=== PATIENT | female | born 1975 | race African-American/Black ===

== ENCOUNTER 2019-03-24 17:40 | Emergency (ER) | payer MEDICAID ==
--- OUTSIDE RECORDS SUMMARY | 2019-03-24 17:45 | XMS REPORT ---
:1975 Author Organization [facility] Address [address] [place] [address] Care Team Providers Name Role Phone Unavailable Unavailable Unavailable Problems This patient has no known problems. Allergies, Adverse Reactions, Alerts This patient has no known allergies or adverse reactions. Medications This patient has no known medications.
--- OUTSIDE RECORDS SUMMARY | 2019-03-24 17:45 | XMS REPORT ---
:1975 Author Organization [facility] Address [address] [place] [id number] Phone Allergies, Adverse Reactions, Alerts Allergy Name Reaction Description Start Date Severity Status Provider No Known Allergies Claudia Jordan Conditions or Problems Problem Problem Onset Status Entry Provider Comment Standard Annotate Name Code Date Date Description No Known Julian Medication List Medication Instructions Start Stop Generic NDC Status Provider Patient Date Date Name Instruction AMOXICILLIN 1 tablet AMOXICILLIN 79941152584 Active Patti Active 500 MG ORAL by mouth Gela CAPSULE every 8 DDS hours until gone Vital Signs Date Name Value Unit Range Description blood pressure, diastolic 78 mm[Hg] BP villatoro blood pressure, systolic 127 mm[Hg] BP sys pulse rate E&M 67 /min Heart rate
--- NOTE | 2019-03-24 20:43 | RAD REPORT ---
EXAM DESCRIPTION: RAD - Abdomen W Erect - 03/24/2019 8:13 pm CLINICAL HISTORY: Abdominal pain COMPARISON: January 2016 TECHNIQUE: Supine and upright views of the abdomen were obtained. FINDINGS: Air and stool are present within a nondilated colon. No stomach dilatation. A few prominen t small bowel loops are present. Enteritis or ileus would be favored over bowel obstruction. No free air or pneumatosis. No suspicious calcifications. Phleboliths along the pelvic floor. IMPRESSION: Mildly prominent small bowel pattern favoring ileus or enteritis rather than bowel obstr uction. No free air or emergent finding.
[2019-03-24 20:53] LABS: Barbiturates NEGATIVE (NEGATIVE); Benzodiazepines NEGATIVE (NEGATIVE); Cocaine POSITIVE (NEGATIVE); METHAMPHETAM NEGATIVE (NEGATIVE); Methadone NEGATIVE (NEGATIVE); Opiates NEGATIVE (NEGATIVE); Phencyclidine NEGATIVE (NEGATIVE); THC Cannibis POSITIVE (NEGATIVE)
[2019-03-24 21:15] LABS: Absolute Lymphocytes (CBC) 3.1 K/uL (0.7-4.9); Absolute Monocytes 0.4 K/uL (0.1-1.3); Eosinophils % 1.8 % (0-4.4); Hematocrit 37.4 % (36.0-45.0); MPV 8.6 fL (7.6-11.3); Monocytes % 6.9 % (3.3-12.3); RBC Red Blood Cell Count 3.87 M/uL (3.86-4.86)
[2019-03-24] MEDS ORDERED: MEPERIDINE HCL 25 MG/0.5 ML ONE (21:22)
[2019-03-24] MEDS ORDERED: PROMETHAZINE 25 MG/ML VIAL ONE (21:22)
[2019-03-24] MEDS ORDERED: NA CHLORIDE 0.9% 1,000 ML ONE ×2 (21:23→21:44)
[2019-03-24] MEDS ORDERED: FAMOTIDINE 20 MG/2 ML VIAL IV ONE (21:23)
[2019-03-24] MEDS ORDERED: HYDROMORPHONE HCL 2 MG/ML inj ONE (21:44)
[2019-03-24 21:45] LABS: Blood Morphology Comment NOT SEEN (NOT SEEN); Platelet Estimate ADEQ
[2019-03-24 21:56] LABS: Albumin 3.3 g/dL (3.4-5.0); Bilirubin Direct 0.1 mg/dL (0-0.2); Bilirubin Total 0.4 mg/dL (0.2-1.0); Potassium 3.5 mmol/L (3.5-5.1)
[2019-03-24 21:57] LABS: Urine Blood NEGATIVE (NEG); Urine Glucose NEGATIVE (NEG); Urine Protein NEGATIVE (NEG)
[2019-03-24] MEDS ORDERED: CIPROFLOXACIN 400mg IV 400 MG/200 ML BAG IV ONE (22:26)
[2019-03-24] MEDS ORDERED: METRONIDAZOLE 500mg IVPB 500 MG/100 ML BAG IV ONE (22:26)
--- NOTE | 2019-03-25 01:26 | ER ---
Nurse's Notes [facility] Name: Jessica Farah Age: 43 yrs Sex: Female : 1975 Arrival Date: 03/24/2019 Time: 17:43 Bed 15 Private MD: Diagnosis: Abdominal tenderness;Crohn's disease [regional enteritis]-history;Vomiting;Diarrhea, unspecified;Abuse of non-psychoactive substances;Cocaine abuse Presentation: 03/24 17:50 Presenting complaint: Patient states: i dont know if i am having a flare up of my tw2 Crohns, i took my phenergan and it started happening Wednesday about 10pm and now the diarrhea has started, and nauseous and vomiting. Transition of care: patient was not received from another setting of care. Onset of symptoms was March 24, 2019. Risk Assessment: Do you want to hurt yourself or someone else? Patient reports no desire to harm self or others. Initial Sepsis Screen: Does the patient meet any 2 criteria? No. Patient's initial sepsis screen is negative. Does the patient have a suspected source of infection? No. Patient's initial sepsis screen is negative. Care prior to arrival: None. 17:50 Method Of Arrival: Ambulatory tw2 17:50 Acuity: EVELIA 2 tw2 Triage Assessment: 17:52 General: Appears uncomfortable, Behavior is cooperative, appropriate for age. Pain: tw2 Complains of pain in right upper quadrant and right lower quadrant. GI: Reports lower abdominal pain, upper abdominal pain, diarrhea, nausea, vomiting. 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 tw2 Historical: - Allergies: 17:54 Bentyl; tw2 17:54 Reglan; tw2 17:54 Sulfa (Sulfonamide Antibiotics); tw2 17:54 Talwin; tw2 17:54 Toradol; tw2 17:54 Zofran; tw2 17:54 Fentanyl; tw2 17:54 Morphine; tw2 17:54 Ketorolac; tw2 17:54 Butalbital Compound; tw2 - Home Meds: 17:54 ProAir HFA 90 mcg/actuation inhalation HFAA [Active]; Adderall XR 10 mg Oral cp24 1 cap tw2 once daily [Active]; Xanax 0.5 mg Oral tab 1 tab 3 times per day [Active]; Protonix 40 mg Oral TbEC 1 tab once daily [Active]; Phenergan 25 mg Oral twice a day [Active]; - PMHx: 17:54 gastritis; ibs; tw2 - Immunization history:: Adult Immunizations Adult Immunizations up to date. - Social history:: Smoking status: Smoking status: Patient/guardian denies using tobacco. - Ebola Screening: : Patient denies travel to an Ebola-affected area in the 21 days before illness onset. Screenin:15 Abuse screen: Denies threats or abuse. Nutritional screening: No deficits noted. jb4 Tuberculosis screening: No symptoms or risk factors identified. Fall Risk None identified. Assessment: 19:15 General: Appears in no apparent distress. uncomfortable, Behavior is calm, cooperative, jb4 appropriate for age. Pain: Complains of pain in abdomen Pain does not radiate. Pain currently is 8 out of 10 on a pain scale. Quality of pain is described as pressure. Neuro: Level of Consciousness is awake, alert, obeys commands, Oriented to person, place, time, situation. Cardiovascular: Patient's skin is warm and dry. Respiratory: Airway is patent Respiratory effort is even, unlabored, Respiratory pattern is regular, symmetrical. GI: Abdomen is round non-distended, Bowel sounds present X 4 quads. Abd is soft X 4 quads Abdomen is tender to palpation X 4 quads. : No signs and/or symptoms were reported regarding the genitourinary system. EENT: No signs and/or symptoms were reported regarding the EENT system. Derm: Skin is intact, Skin is dry, Skin is normal, Skin temperature is warm. Musculoskeletal: Circulation, motion, and sensation intact. 20:30 Reassessment: Patient appears in no apparent distress at this time. Patient and/or jb4 family updated on plan of care and expected duration. Pain level reassessed. Patient is alert, oriented x 3, equal unlabored respirations, skin warm/dry/pink. 21:30 Reassessment: Patient appears in no apparent distress at this time. Patient and/or jb4 family updated on plan of care and expected duration. Pain level reassessed. Patient is alert, oriented x 3, equal unlabored respirations, skin warm/dry/pink. 22:30 Reassessment: Patient appears in no apparent distress at this time. Patient and/or jb4 family updated on plan of care and expected duration. Pain level reassessed. Patient is alert, oriented x 3, equal unlabored respirations, skin warm/dry/pink. 23:30 Reassessment: Patient appears in no apparent distress at this time. Patient and/or jb4 family updated on plan of care and expected duration. Pain level reassessed. Patient is alert, oriented x 3, equal unlabored respirations, skin warm/dry/pink. Patient states feeling better. 03/25 00:30 Reassessment: Patient appears in no apparent distress at this time. Patient and/or jb4 family updated on plan of care and expected duration. Pain level reassessed. Patient is alert, oriented x 3, equal unlabored respirations, skin warm/dry/pink. Pt reports increased pain, Provider notified. 01:32 Reassessment: Upon entering room pt resting, eyes closed. Resp even and unlabored. ed1 Obtained pt's vital signs and told pt to call for her ride because she was being discharged. Pt then began to moan and say that her stomach hurts and she is nauseated. Dr. Sharp notified. No new orders received. Vital Signs: 03/24 17:51 BP 106 / 64; Pulse 83; Resp 17; Temp 98.3(TE); Pulse Ox 99% on R/A; Weight 83.91 kg tw2 (R); Height 5 ft. 7 in. (170.18 cm) (R); Pain 10; 19:15 BP 109 / 83; Pulse 76; Resp 16; Pulse Ox 100% on R/A; jb4 20:30 BP 115 / 76; Pulse 78; Resp 16; Pulse Ox 100% on R/A; jb4 21:30 BP 140 / 82; Pulse 82; Resp 16; Pulse Ox 100% on R/A; jb4 22:30 BP 122 / 75; Pulse 72; Resp 18; Pulse Ox 100% on R/A; jb4 23:30 BP 128 / 77; Pulse 73; Resp 16; Pulse Ox 100% on R/A; jb4 03/25 00:30 BP 116 / 74; Pulse 67; Resp 16; Pulse Ox 100% on R/A; jb4 01:07 BP 122 / 78; Pulse 72; Resp 16 S; Temp 100; Pulse Ox 100% ; ag4 01:32 BP 123 / 82; Pulse 71; Resp 17; Temp 97.7; Pulse Ox 100% on R/A; Pain 8/10; ed1 03/24 17:51 Body Mass Index 28.97 (83.91 kg, 170.18 cm) tw2 ED Course: 03/24 17:43 Patient arrived in ED. rg4 17:51 Triage completed. tw2 17:52 Arm band placed on. tw2 19:15 Patient has correct armband on for positive identification. Bed in low position. Call jb4 light in reach. Side rails up X 1. Pulse ox on. NIBP on. 19:28 Alexis Saucedo PA is PHCP. cp 19:39 Kenton Garcia, RN is Primary Nurse. jb4 19:41 Alexis Sharp MD is Attending Physician. cp 20:13 XRAY Abdomen With Erect In Process Unspecified. EDMS 21:00 Initial lab(s) drawn, by va, sent to lab. Inserted 18 gauge 10 mg midline to right fc upper brachial vein on first attempt. Line with good blood return and flushes well. 22:06 Oral contrast given. 2 03/25 00:43 CT Abd/Pelvis - W/Contrast: oral and iv In Process Unspecified. EDMS 01:24 Primary Nurse role handed off by Kenton Garcia, ZARA ed1 01:24 Viviana Dickey, ZARA is Primary Nurse. ed1 01:26 Vitaly Mcguire MD is Referral Physician. michael 01:43 No provider procedures requiring assistance completed. IV discontinued, intact, ed1 bleeding controlled, No redness/swelling at site. Pressure dressing applied. Administered Medications: 03/24 21:11 Not Given (Duplicate Order): Phenergan 25 mg IVP once michael 21:11 Not Given (Duplicate Order): Demerol - Meperidine 12.5 mg IVP once michael 21:30 Drug: NS 0.9% 1000 ml Route: IV; Rate: 1 bolus; Site: right upper arm; jb4 22:30 Follow up: Response: No adverse reaction; IV Status: Completed infusion; IV Intake: jb4 1000ml 21:35 Drug: Pepcid 20 mg Route: IVP; Site: right upper arm; jb4 22:05 Follow up: Response: No adverse reaction jb4 21:38 Drug: Phenergan 12.5 mg Route: IVP; Site: right upper arm; jb4 22:08 Follow up: Response: No adverse reaction; Nausea is decreased jb4 21:44 Drug: Dilaudid 1 mg Route: IVP; Site: right upper arm; jb4 22:15 Follow up: Response: No adverse reaction; Pain is decreased jb4 22:20 Drug: Phenergan 12.5 mg Route: IVP; Site: right upper arm; jb4 22:50 Follow up: Response: No adverse reaction; Nausea is decreased jb4 22:25 Drug: Dilaudid 1 mg Route: IVP; Site: right upper arm; jb4 22:55 Follow up: Response: No adverse reaction; Pain is decreased jb4 22:30 Drug: NS 0.9% 1000 ml Route: IV; Rate: 1 bolus; Site: right upper arm; jb4 22:32 Drug: Flagyl 500 mg Volume: 100 ml; Route: IVPB; Rate: 200 ml/hr; Infused Over: 30 jb4 mins; Site: right upper arm; 23:02 Follow up: Response: No adverse reaction; IV Status: Completed infusion; IV Intake: jb4 100ml 23:12 Drug: Cipro 400 mg Volume: 200 ml; Route: IVPB; Infused Over: 60 mins; Site: right jb4 upper arm; Intake: 22:30 IV: 1000ml; Total: 1000ml. jb4 23:02 IV: 100ml; Total: 1100ml. jb4 Outcome: 03/25 01:26 Discharge ordered by MD. rodriguez 01:43 Discharged to home ambulatory, with friend. ed1 01:43 Condition: good 01:43 Discharge instructions given to patient, Instructed on discharge instructions, follow up and referral plans. medication usage, Demonstrated understanding of instructions, follow-up care, medications, Prescriptions given X 4. 01:44 Patient left the ED. ed1 Signatures: Dispatcher [employer] EDMS Alexis Sharp MD MD cha Chretien, Felicia RN RN Viviana Petit RN RN ed1 Alexis Saucedo PA PA cp Wise, Tara, RN RN tw2 Meredith Gilbert rg4 Kenton Garcia RN RN jb4 Xenia Lobato 2 Don Ca ag4 Corrections: (The following items were deleted from the chart) 01:43 01:32 BP 123 / 82; Pulse 7bpm; Resp 17bpm; Pulse Ox 100% RA; Temp 97.7F; Pain 8/10; ed1 ed1
--- NOTE | 2019-03-25 01:27 | EDPHYS ---
Physician Documentation [facility] Name: Jessica Farah Age: 43 yrs Sex: Female : 1975 Arrival Date: 03/24/2019 Time: 17:43 Bed 15 Private MD: ED Physician Alexis Sharp HPI: 03/24 19:55 This 43 yrs old Black Female presents to ER via Ambulatory with complaints of Abdominal cp Pain, Nausea/Vomiting/Diarrhea. 19:55 The patient presents with abdominal pain in the upper abdomen. Onset: The cp symptoms/episode began/occurred 2 day(s) ago. The symptoms do not radiate. Associated signs and symptoms: Pertinent positives: diarrhea, nausea, vomiting, Pertinent negatives: blood in stools, constipation, dysuria, fever, vomiting blood. The symptoms are described as constant. Modifying factors: the symptoms are aggravated by pressure. 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 tw2 Historical: - Allergies: 17:54 Bentyl; tw2 17:54 Reglan; tw2 17:54 Sulfa (Sulfonamide Antibiotics); tw2 17:54 Talwin; tw2 17:54 Toradol; tw2 17:54 Zofran; tw2 17:54 Fentanyl; tw2 17:54 Morphine; tw2 17:54 Ketorolac; tw2 17:54 Butalbital Compound; tw2 - Home Meds: 17:54 ProAir HFA 90 mcg/actuation inhalation HFAA [Active]; Adderall XR 10 mg Oral cp24 1 cap tw2 once daily [Active]; Xanax 0.5 mg Oral tab 1 tab 3 times per day [Active]; Protonix 40 mg Oral TbEC 1 tab once daily [Active]; Phenergan 25 mg Oral twice a day [Active]; - PMHx: 17:54 gastritis; ibs; tw2 - Immunization history:: Adult Immunizations Adult Immunizations up to date. - Social history:: Smoking status: Smoking status: Patient/guardian denies using tobacco. - Ebola Screening: : Patient denies travel to an Ebola-affected area in the 21 days before illness onset. ROS: 20:00 Constitutional: Negative for body aches, chills, fever, poor PO intake. cp 20:00 Eyes: Negative for injury, pain, redness, and discharge. cp 20:00 Cardiovascular: Negative for chest pain, edema, palpitations. 20:00 Respiratory: Negative for cough, shortness of breath, wheezing. 20:00 Abdomen/GI: Positive for abdominal pain, nausea, vomiting, and diarrhea, Negative for constipation, anorexia, hematemesis, black/tarry stool, rectal bleeding. 20:00 : Negative for urinary symptoms, pelvic pain, vaginal bleeding, vaginal discharge. 20:00 Skin: Negative for cellulitis, rash. 20:00 Neuro: Negative for altered mental status, headache, weakness. 20:00 All other systems are negative. Exam: 20:05 Constitutional: The patient appears in no acute distress, alert, awake, cp non-diaphoretic, non-toxic, well developed, well nourished. 20:05 Head/Face: Normocephalic, atraumatic. Eyes: Pupils equal round and reactive to light, cp extra-ocular motions intact. Lids and lashes normal. Conjunctiva and sclera are non-icteric and not injected. Cornea within normal limits. Periorbital areas with no swelling, redness, or edema. ENT: Nares patent. No nasal discharge, no septal abnormalities noted. Tympanic membranes are normal and external auditory canals are clear. Oropharynx with no redness, swelling, or masses, exudates, or evidence of obstruction, uvula midline. Mucous membranes moist. Chest/axilla: Normal chest wall appearance and motion. Nontender with no deformity. No lesions are appreciated. 20:05 Cardiovascular: Rate: normal, Rhythm: regular, Edema: is not appreciated, JVD: is not appreciated. 20:05 Respiratory: the patient does not display signs of respiratory distress, Respirations: normal, no use of accessory muscles, no retractions, no splinting, no tachypnea, labored breathing, is not present, Breath sounds: are clear throughout, no decreased breath sounds, no stridor, no wheezing. 20:05 Abdomen/GI: Inspection: abdomen appears normal, Bowel sounds: active, all quadrants, Palpation: soft, in all quadrants, moderate abdominal tenderness, in the epigastric area and right upper quadrant, rebound tenderness, is not appreciated, voluntary guarding, is elicited in the epigastric area and right upper quadrant. 20:05 Back: pain, is absent, ROM is normal. 20:05 Skin: no rash present. 20:05 Neuro: Orientation: to person, place \T\ time. Mentation: is normal, Motor: moves all fours, strength is normal. Vital Signs: 17:51 BP 106 / 64; Pulse 83; Resp 17; Temp 98.3(TE); Pulse Ox 99% on R/A; Weight 83.91 kg tw2 (R); Height 5 ft. 7 in. (170.18 cm) (R); Pain 9/10; 19:15 BP 109 / 83; Pulse 76; Resp 16; Pulse Ox 100% on R/A; jb4 20:30 BP 115 / 76; Pulse 78; Resp 16; Pulse Ox 100% on R/A; jb4 21:30 BP 140 / 82; Pulse 82; Resp 16; Pulse Ox 100% on R/A; jb4 22:30 BP 122 / 75; Pulse 72; Resp 18; Pulse Ox 100% on R/A; jb4 23:30 BP 128 / 77; Pulse 73; Resp 16; Pulse Ox 100% on R/A; jb4 05 00:30 BP 116 / 74; Pulse 67; Resp 16; Pulse Ox 100% on R/A; jb4 01:07 BP 122 / 78; Pulse 72; Resp 16 S; Temp 100; Pulse Ox 100% ; ag4 01:32 BP 123 / 82; Pulse 71; Resp 17; Temp 97.7; Pulse Ox 100% on R/A; Pain 8/10; ed1 03/24 17:51 Body Mass Index 28.97 (83.91 kg, 170.18 cm) tw2 MDM: 03/24 19:28 Patient medically screened. cp 20:21 Differential diagnosis: bowel obstruction, cholecystitis, Cholelithiasis, gastritis, cp non-specific abd pain, pancreatitis, Peptic Ulcer Disease, Perf. Duodenal Ulcer, Perf. Gastric Ulcer, urinary tract infection. 21:13 Data reviewed: vital signs, nurses notes, lab test result(s), radiologic studies. [facility] 03/24 19:48 Order name: Basic Metabolic Panel 03/24 19:48 Order name: CBC with Diff; Complete Time: 21:56 03/24 19:48 Order name: Creatinine for Radiology; Complete Time: 21:56 03/24 19:48 Order name: Hepatic Function 03/24 19:48 Order name: Lipase; Complete Time: 23:02 cp 10 19:48 Order name: UDS; Complete Time: 21:18 cp 10 19:48 Order name: XRAY Abdomen With Erect; Complete Time: 21:18 cp 10 19:49 Order name: Basic Metabolic Panel; Complete Time: 23:02 EDMS 10 19:49 Order name: Liver (Hepatic) Function; Complete Time: 23:02 EDMS 10 20:22 Order name: Urine Dipstick--Ancillary (enter results); Complete Time: 23:02 cm6 03/24 20:22 Order name: Urine --Ancillary (enter results); Complete Time: 23:02 cm6 10 21:18 Order name: Manual Differential; Complete Time: 21:56 EDMS 10 22:02 Order name: CT Abd/Pelvis - W/Contrast: oral and iv michael 03/24 19:48 Order name: IV Saline Lock; Complete Time: 21:07 cp 10 19:48 Order name: Labs collected and sent; Complete Time: 21:07 cp 03/24 19:48 Order name: Urine Dipstick-Ancillary (obtain specimen); Complete Time: 20:26 cp 10 19:48 Order name: Urine Test (obtain specimen); Complete Time: 20:26 cp 10 21:18 Order name: EKG; Complete Time: 21:22 michael 10 21:18 Order name: EKG - Nurse/Tech; Complete Time: 22:05 michael Administered Medications: 21:11 Not Given (Duplicate Order): Phenergan 25 mg IVP once michael 21:11 Not Given (Duplicate Order): Demerol - Meperidine 12.5 mg IVP once michael 21:30 Drug: NS 0.9% 1000 ml Route: IV; Rate: 1 bolus; Site: right upper arm; jb4 22:30 Follow up: Response: No adverse reaction; IV Status: Completed infusion; IV Intake: jb4 1000ml 21:35 Drug: Pepcid 20 mg Route: IVP; Site: right upper arm; jb4 22:05 Follow up: Response: No adverse reaction jb4 21:38 Drug: Phenergan 12.5 mg Route: IVP; Site: right upper arm; jb4 22:08 Follow up: Response: No adverse reaction; Nausea is decreased jb4 21:44 Drug: Dilaudid 1 mg Route: IVP; Site: right upper arm; jb4 22:15 Follow up: Response: No adverse reaction; Pain is decreased jb4 22:20 Drug: Phenergan 12.5 mg Route: IVP; Site: right upper arm; jb4 22:50 Follow up: Response: No adverse reaction; Nausea is decreased jb4 22:25 Drug: Dilaudid 1 mg Route: IVP; Site: right upper arm; jb4 22:55 Follow up: Response: No adverse reaction; Pain is decreased jb4 22:30 Drug: NS 0.9% 1000 ml Route: IV; Rate: 1 bolus; Site: right upper arm; jb4 22:32 Drug: Flagyl 500 mg Volume: 100 ml; Route: IVPB; Rate: 200 ml/hr; Infused Over: 30 jb4 mins; Site: right upper arm; 23:02 Follow up: Response: No adverse reaction; IV Status: Completed infusion; IV Intake: jb4 100ml 23:12 Drug: Cipro 400 mg Volume: 200 ml; Route: IVPB; Infused Over: 60 mins; Site: right jb4 upper arm; Disposition: 21:12 Co-signature as Attending Physician, Alexis Sharp MD I agree with the assessment and michael plan of care. Disposition: 03/25/19 01:26 Discharged to Home. Impression: Abdominal tenderness, Crohn's disease [regional enteritis] - history, Vomiting, Diarrhea, unspecified, Abuse of non-psychoactive substances, Cocaine abuse. - Condition is Stable. - Discharge Instructions: Abdominal Pain, Adult, Food Choices to Help Relieve Diarrhea, Adult, Stimulant Use Disorder-Cocaine, Diarrhea, Adult, Fever, Adult, Nausea and Vomiting, Adult, Nausea and Vomiting, Adult, Atda-he-Hclg, Abdominal Pain, Adult, Ayxr-of-Czya, Diarrhea, Adult, Yymw-fm-Ordl, Fever, Adult, Sjjk-wn-Wsar. - Prescriptions for Pepcid 20 mg Oral Tablet - take 1 tablet by ORAL route every 12 hours for 10 days; 20 tablet. promethazine 25 mg Oral Tablet - take 1 tablet by ORAL route every 6 hours As needed; 20 tablet. Flagyl 500 mg Oral Tablet - take 1 tablet by ORAL route every 8 hours for 10 days; 21 tablet. Cipro 500 mg Oral Tablet - take 1 tablet by ORAL route every 12 hours for 7 days; 14 tablet. - Medication Reconciliation Form, Thank You Letter, Antibiotic Education, Prescription Opioid Use form. - Follow up: Private Physician; When: 2 - 3 days; Reason: Recheck today's complaints, Continuance of care, Re-evaluation by your physician. Follow up: Vitaly Mcguire; When: 2 - 3 days; Reason: Recheck today's complaints, Continuance of care, Re-evaluation by your physician. - Problem is new. - Symptoms have improved. Signatures: Dispatcher [employer] EDMS Alexis Sharp MD MD cha Riggs, Erika RN RN ed1 Alexis Saucedo PA PA cp Wise, Tara RN RN tw2 Kenton Garcia RN RN jb4 Corrections: (The following items were deleted from the chart) 03/25 01:44 01:26 03/25/2019 01:26 Discharged to Home. Impression: Abdominal tenderness; Crohn's ed1 disease [regional enteritis] - history; Vomiting; Diarrhea, unspecified; Abuse of non-psychoactive substances; Cocaine abuse. Condition is Stable. Discharge Instructions: Abdominal Pain, Adult, Food Choices to Help Relieve Diarrhea, Adult, Diarrhea, Adult, Nausea and Vomiting, Adult, Nausea and Vomiting, Adult, Ncrv-rz-Qmmy, Abdominal Pain, Adult, Tyvv-lj-Swlx, Diarrhea, Adult, Lptw-bp-Ivyf, Stimulant Use Disorder-Cocaine. Prescriptions for Pepcid 20 mg Oral Tablet - take 1 tablet by ORAL route every 12 hours for 10 days; 20 tablet, promethazine 25 mg Oral Tablet - take 1 tablet by ORAL route every 6 hours As needed; 20 tablet. and Forms are Medication Reconciliation Form, Thank You Letter, Antibiotic Education, Prescription Opioid Use. Follow up: Private Physician; When: 2 - 3 days; Reason: Recheck today's complaints, Continuance of care, Re-evaluation by your physician. Follow up: Vitaly Mcguire; When: 2 - 3 days; Reason: Recheck today's complaints, Continuance of care, Re-evaluation by your physician. Problem is new. Symptoms have improved. michael
[2019-03-25 01:57] VITALS: O2SAT 100
[2019-03-25 02:09] VITALS: BP 123/82; TEMP 97.7
--- NOTE | 2019-03-25 09:22 | EKG ---
Test Date: 2019-03-24 Test Time: 21:58:[address] Supervisor: HEMAL MEASUREMENT RESULTS: Intervals: Rate: 68 HI: 200 QRSD: 84 QT: 428 QTc: 455 [place]: P: 52 HI: 200 QRS: 60 T: 43 INTERPRETIVE STATEMENTS: Normal sinus rhythm Normal ECG Compared to ECG 09/07/2015 09:13:06 No significant changes Electronically Signed On 03-26-19 08:47:27 CDT by Jordan El
--- NOTE | 2019-03-27 10:52 | RAD REPORT ---
EXAM DESCRIPTION: CT Abdomen and Pelvis With Intravenous Contrast CLINICAL HISTORY: The patient is 43 years old and is Female; ABD PAIN TECHNIQUE: Axial computed tomography images of the abdomen and pelvis with intravenous contrast. S agittal and coronal reformatted images were created and reviewed. This CT exam was performed using one or more of the following dose reduction techniques: automated exposure control, adjustment of t he mA and/or kV according to patient size, and/or use of iterative reconstruction technique. COMPARISON: No relevant prior studies available. FINDINGS: LUNG BASES: Unremarkable. No mass. No consolidation. ABDOMEN: LIVER: Unremarkable. No mass. GALLBLADDER AND BILE DUCTS: No calcified stones. No ductal dilation. PANCREAS: No ductal dilation. No mass. SPLEEN: Unremarkable. ADRENALS: Unremarkable. No mass. KIDNEYS AND URETERS: Unremarkable. No solid mass. No hydronephrosis. STOMACH AND BOWEL: The stomach is minimally distended with oral contrast. The small bowel is nor mal in caliber. Mild amount of stool is present throughout the colon. There is no mucosal thickening or evidence of bowel obstruction. PELVIS: APPENDIX: The appendix is normal in caliber without surrounding inflammation. BLADDER: Unremarkable. No mass. REPRODUCTIVE: The patient is status post hysterectomy. A 2.2 cm right ovarian cyst is present. No follow-up imaging is recommended. The left ovary is unremarkable. ABDOMEN and PELVIS: INTRAPERITONEAL SPACE: Unremarkable. No free air. No significant fluid collection. BONES/JOINTS: Degenerative change of the left hip is present. SOFT TISSUES: The soft tissues are normal. VASCULATURE: Unremarkable. No abdominal aortic aneurysm. LYMPH NODES: Unremarkable. No enlarged lymph nodes. IMPRESSION: No acute findings on this contrasted CT of the abdomen and pelvis to explain the patient 's symptoms. Electronically signed by: Triny Becerril MD 03/25/2019 12:48 AM CDT Due to temporary technical issues with the PACS/Fluency reporting system, reports are being signed by the in house radiologist as a courtesy to ensure prompt reporting. The interpreting radiologist is f ully responsible for the content of the report.
== END 2019-03-25 01:44 | disposition home or self-care (01) ==
LOC: ER 17:40
DX: K50.90 Crohn's disease, unspecified, without complications (principal); R19.7 Diarrhea, unspecified; R11.10 Vomiting, unspecified; F14.10 Cocaine abuse, uncomplicated; F55.8 Abuse of other non-psychoactive substances; Z88.2 Allergy status to sulfonamides; Z88.5 Allergy status to narcotic agent; Z88.8 Allergy status to other drugs, medicaments and biological substances
CPT/HCPCS: 36415; 74019; 74177; 80048; 80076; 80307; 81003; 81025; 83690; 85025; 93005; 96361; 96365; 96375; 99284; J0744; J1170; J2175; J2550; J7030; Q9967

== ENCOUNTER 2019-06-15 06:45 | Emergency (ER) | payer SELFPAY ==
--- OUTSIDE RECORDS SUMMARY | 2019-06-15 06:47 | XMS REPORT ---
:1975 [facility] Address [address] [place] [address] Dr. Caldwell [address] [place] [id number] Care Team Providers Name Role Phone Unavailable Unavailable Unavailable Problems This patient has no known problems. Allergies, Adverse Reactions, Alerts This patient has no known allergies or adverse reactions. Medications This patient has no known medications.
--- OUTSIDE RECORDS SUMMARY | 2019-06-15 06:47 | XMS REPORT ---
:1975 Author Organization [facility] Address [address] [place] [phone] Phone Allergies, Adverse Reactions, Alerts Allergy Name Reaction Description Start Date Severity Status Provider No Known Allergies Claudia Jordan Conditions or Problems Problem Problem Onset Status Entry Provider Comment Standard Annotate Name Code Date Date Description No Known Julian Medication List Medication Instructions Start Stop Generic NDC Status Provider Patient Date Date Name Instruction AMOXICILLIN 1 tablet AMOXICILLIN [id number] Active Patti Active 500 MG ORAL by mouth Gela CAPSULE every 8 DDS hours until gone Vital Signs Date Name Value Unit Range Description blood pressure, diastolic 78 mm[Hg] BP villatoro blood pressure, systolic 127 mm[Hg] BP sys pulse rate E&M 67 /min Heart rate
[2019-06-15 07:34] LABS: Urine Blood NEGATIVE (NEG); Urine Glucose NEGATIVE (NEG); Urine Protein NEGATIVE (NEG)
[2019-06-15] MEDS ORDERED: PROMETHAZINE 25 MG/ML VIAL ONE ×2 (08:18→10:23)
[2019-06-15] MEDS ORDERED: NA CHLORIDE 0.9% 1,000 ML ONE (08:18)
[2019-06-15] MEDS ORDERED: ACETAMINOPHEN 325 MG TABLET ONE (08:18)
[2019-06-15 08:28] LABS: Basophils % 0.5 % (0-1.3); Hematocrit 38.1 % (36.0-45.0); Lymphocytes % 14.6 % (15.3-44.8); MPV 9.3 fL (7.6-11.3); RBC Red Blood Cell Count 3.99 M/uL (3.86-4.86)
--- NOTE | 2019-06-15 08:36 | RAD REPORT ---
EXAM DESCRIPTION: RAD - Chest Single View - 06/15/2019 7:31 am CLINICAL HISTORY: Cough and congestion, chills and body aches, fever, abdominal pain with history of Crohn's COMPARISON: September 2015 TECHNIQUE: AP portable chest image was obtained 0722 hours . FINDINGS: No focal lung parenchymal process. Inspiratory effort is shallow compared to the compariso n. True change to the lung markings not suspected. Heart and vasculature are normal. No measurable pl eural effusion and no pneumothorax. No acute bony abnormality seen. No acute aortic findings suspecte d. IMPRESSION: No acute cardiopulmonary process. No significant change from comparison.
[2019-06-15 08:41] LABS: Albumin 3.5 g/dL (3.4-5.0); Bilirubin Direct 0.2 mg/dL (0-0.2); Bilirubin Total 0.5 mg/dL (0.2-1.0); Potassium 3.9 mmol/L (3.5-5.1); Protein, Total 7.4 g/dL (6.4-8.2)
[2019-06-15] MEDS ORDERED: HYDROMORPHONE HCL 1 MG/ML INJ ONE (09:08)
[2019-06-15] MEDS ORDERED: PANTOPRAZOLE 40 MG INJ ONE (09:09)
--- NOTE | 2019-06-15 09:47 | RAD REPORT ---
EXAM DESCRIPTION: CT - Abdomen Pelvis W Contrast - 06/15/2019 8:57 am CLINICAL HISTORY: Abdominal pain, fever, history of gastritis IBS and Crohn's COMPARISON: CT March 25, 2019 TECHNIQUE: Axial 5 millimeter thick images of the abdomen and pelvis were obtained following bolus a dministration of nonionic IV contrast. Patient had limited vascular access. No oral contrast was admi nistered. All CT scans are performed using dose optimization technique as appropriate and may include automated exposure control or mA/KV adjustment according to patient size. FINDINGS: No suspicious findings in the lung bases. The liver, spleen, and pancreas show no suspicious findings. Gallbladder and biliary tree are also wi thout suspicious finding. Symmetric renal function is seen with no hydronephrosis or suspicious renal mass. No pyelonephritis o r acute parenchymal process. No bladder abnormalities. No adrenal abnormalities. No dilated bowel loops or bowel wall thickening. No appendicitis findings. No free air, free fluid or inflammatory stranding. No hernia, mass or bulky lymphadenopathy. Uterus is absent. No ovarian or a dnexal finding. No suspicious bony findings. No acute vascular finding. IMPRESSION: Contrast enhanced CT abdomen and pelvis showing no acute or emergent finding. No significant change from comparison.
--- NOTE | 2019-06-15 09:54 | ER ---
Nurse's Notes [facility] Name: Jessica Farah Age: 43 yrs Sex: Female : 1975 Arrival Date: 06/15/2019 Time: 06:47 Bed 15 Private MD: Diagnosis: Fever, unspecified;Crohn's disease [regional enteritis];Gastroenteritis Presentation: 06/15 07:00 Presenting complaint: Presenting complaint: Patient states: I am having abdominal pain, jb4 nausea vomiting and diarrhea, with fever, I am coughing up thick yellow stuff, my ears are ringing, I have chills and body aches. 07:00 Transition of care: patient was not received from another setting of care. Onset of jb4 symptoms was June 13, 2019. Risk Assessment: Do you want to hurt yourself or someone else? Patient reports no desire to harm self or others. Initial Sepsis Screen: Does the patient meet any 2 criteria? RR > 20 per min. HR > 90 bpm. Yes Does the patient have a suspected source of infection? Yes: Productive cough/pneumonia Acute abdominal pain If YES to both, name of provider notified: Alexis Sharp MD Care prior to arrival: None. 07:00 Method Of Arrival: Ambulatory jb4 07:00 Acuity: EVELIA 2 jb4 Triage Assessment: 07:00 GI: Reports diarrhea, nausea, vomiting. 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 rb1 08:15 s/p hysterectomy jr8 Historical: - Allergies: 07:00 Bentyl; jb4 07:00 Butalbital Compound; jb4 07:00 Fentanyl; jb4 07:00 Ketorolac; jb4 07:00 Morphine; jb4 07:00 Reglan; jb4 07:00 Sulfa (Sulfonamide Antibiotics); jb4 07:00 Talwin; jb4 07:00 Toradol; jb4 07:00 Zofran; jb4 07:00 Demerol; jb4 - Home Meds: 07:00 Adderall XR 10 mg Oral cp24 1 cap once daily [Active]; Phenergan 25 mg Oral twice a day jb4 [Active]; ProAir HFA 90 mcg/actuation inhalation HFAA [Active]; Protonix 40 mg Oral TbEC 1 tab once daily [Active]; Xanax 0.5 mg Oral tab 1 tab 3 times per day [Active]; - PMHx: 07:00 gastritis; ibs; Crohn's; jb4 - Immunization history:: Adult Immunizations up to date. - Social history:: Smoking status: Patient uses tobacco products, denies chronic smoking, but will smoke occasionally, Patient/guardian denies using alcohol, the patient reports quitting approximately 2 years ago. - Ebola Screening: : No symptoms or risks identified at this time. Screenin:00 Abuse screen: Denies threats or abuse. Nutritional screening: No deficits noted. rb1 Tuberculosis screening: No symptoms or risk factors identified. Fall Risk None identified. Assessment: 07:00 General: Appears uncomfortable, Behavior is calm, cooperative, Reports fever for rb1 feeling ill for 2-3 days. Pain: Complains of pain in right upper quadrant and right lower quadrant Pain currently is 10 out of 10 on a pain scale. Neuro: Level of Consciousness is awake, alert, obeys commands, Oriented to person, place, time, situation. 07:45 Reassessment: Patient requesting Mid-Line access at this time. No staff members ss available to perform procedure at this time. Verbalized to patient importance of obtaining PIV now and that we must at least look for peripheral access. Patient is yelling at nursing staff stating that it is ridiculous we have nobody on staff at this time to obtain mid line access. Kellie Vincent notified and will obtain peripheral access in . 08:40 Reassessment: Patient appears in no apparent distress at this time. No changes from rb1 previously documented assessment. 09:38 Reassessment: Patient appears in no apparent distress at this time. Patient and/or rb1 family updated on plan of care and expected duration. Pain level reassessed. Patient is alert, oriented x 3, equal unlabored respirations, skin warm/dry/pink. Pt. is requested pain medication. Provider notified. No new order received at this time. 10:22 Reassessment: Provider notified that the pt. requested more nausea medication. noris Llamas will put in a new order. 10:35 Reassessment: Patient appears in no apparent distress at this time. No changes from rb1 previously documented assessment. Vital Signs: 07:00 BP 136 / 98; Pulse 117; Resp 24; Temp 100.4(O); Pulse Ox 97% on R/A; Weight 83.91 kg jb4 (R); Height 5 ft. 7 in. (170.18 cm) (R); Pain 9/10; 08:00 BP 127 / 78; Pulse 113; Resp 20; Temp 99(O); Pulse Ox 97% on R/A; Pain 9/10; rb1 09:00 BP 109 / 74; Pulse 90; Resp 17; Temp 98.9(O); Pulse Ox 99% on R/A; Pain 9/10; rb1 10:00 BP 110 / 73; Pulse 85; Resp 19; Temp 98.8(O); Pulse Ox 97% on R/A; Pain 9/10; rb1 10:35 BP 109 / 61; Pulse 83; Resp 16; Temp 98.8(O); Pulse Ox 99% on R/A; Pain 9/10; rb1 07:00 Body Mass Index 28.97 (83.91 kg, 170.18 cm) jb4 ED Course: 06:47 Patient arrived in ED. ag3 07:00 Arm band placed on left wrist. jb4 07:00 Patient has correct armband on for positive identification. Placed in gown. Bed in low rb1 position. Call light in reach. Side rails up X 1. Pulse ox on. NIBP on. 07:01 Que Llamas PA is PHCP. jr8 07:01 Alexis Sharp MD is Attending Physician. jr8 07:12 Triage completed. jb4 07:31 X-ray completed. Portable x-ray completed in exam room. Patient tolerated procedure mh1 well. 07:32 XRAY Chest (1 view) In Process Unspecified. EDMS 07:54 Amanda Cisse, RN is Primary Nurse. rb1 08:00 Inserted saline lock: 18 gauge in left EJ, using aseptic technique. ,using aseptic rb1 technique. Inserted by DELMI Vincent. Blood collected. 08:57 CT Abd/Pelvis - IV Contrast Only In Process Unspecified. EDMS 10:42 No provider procedures requiring assistance completed. IV discontinued, intact, rb1 bleeding controlled, No redness/swelling at site. Pressure dressing applied. Administered Medications: 08:00 Drug: NS 0.9% 1000 ml Route: IV; Rate: 1000 ml; Site: left jugular; rb1 09:22 Follow up: IV Status: Completed infusion rb1 08:00 Drug: Promethazine 12.5 mg Route: IVP; Site: left jugular; rb1 08:15 Follow up: Response: No adverse reaction; Nausea unchanged rb1 08:25 Drug: Tylenol 650 mg Route: PO; rb1 08:40 Follow up: Response: No adverse reaction rb1 09:25 Drug: ProTONIX 40 mg Route: IVP; Site: left jugular; rb1 09:40 Follow up: Response: No adverse reaction rb1 09:25 Drug: Dilaudid 1 mg Route: IVP; Site: left jugular; rb1 09:40 Follow up: Response: No adverse reaction; Pain is unchanged, physician notified rb1 10:25 Drug: Promethazine 12.5 mg Route: IVP; Site: left jugular; rb1 10:37 Follow up: Response: No adverse reaction rb1 Outcome: 09:53 Discharge ordered by . jr8 10:42 Discharged to home ambulatory. rb1 10:42 Condition: stable 10:42 Discharge instructions given to patient, Instructed on discharge instructions, follow up and referral plans. Demonstrated understanding of instructions, follow-up care, Prescriptions given X none 10:46 Patient left the ED. rb1 Signatures: Dispatcher [employer] EDMS Vidya Fraser 1 Lillian Motta RN RN Que Llamas PA PA jr8 Amanda Cisse RN RN rb1 Kenton Garcia RN RN jb4 Tangela Avina ag3 Corrections: (The following items were deleted from the chart) 07:12 07:06 Presenting complaint: edilberto jbMyles
--- NOTE | 2019-06-15 09:55 | EDPHYS ---
Physician Documentation [facility] Name: Jessica Farah Age: 43 yrs Sex: Female : 1975 Arrival Date: 06/15/2019 Time: 06:47 Bed 15 Private MD: MANOJ Physician Alexis Sharp HPI: 06/15 08:15 This 43 yrs old Black Female presents to ER via Ambulatory with complaints of Nausea, jr8 Abdominal Pain, Cough, Fever. 08:15 The patient presents to the emergency department with vomiting, that is intermittent, x jr8 3 days, diarrhea, 2 times today, abdominal pain, of the right upper quadrant and right lower quadrant, described as burning, and does not radiate. Onset: The symptoms/episode began/occurred acutely, 3 day(s) ago. Possible causes: flare up of bowel problem, Crohn's disease, irritable bowel disease. The symptoms are alleviated by nothing. Associated signs and symptoms: Pertinent positives: abdominal pain, diarrhea, fever, nausea, vomiting, Pertinent negatives: dysuria, GI bleeding. Severity of symptoms: At their worst the symptoms were moderate in the emergency department the symptoms are unchanged. The patient has experienced similar episodes in the past. The patient has not recently seen a physician. Abdominal pain and vomiting x 3 days with diarrhea that started today. Patient also reports productive cough since yesterday with yellow/green sputum and fever, chills, body aches. Denies blood in vomit or in stool. Denies urinary symptoms. 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 rb1 08:15 s/p hysterectomy jr8 Historical: - Allergies: 07:00 Bentyl; jb4 07:00 Butalbital Compound; jb4 07:00 Fentanyl; jb4 07:00 Ketorolac; jb4 07:00 Morphine; jb4 07:00 Reglan; jb4 07:00 Sulfa (Sulfonamide Antibiotics); jb4 07:00 Talwin; jb4 07:00 Toradol; jb4 07:00 Zofran; jb4 07:00 Demerol; jb4 - Home Meds: 07:00 Adderall XR 10 mg Oral cp24 1 cap once daily [Active]; Phenergan 25 mg Oral twice a day jb4 [Active]; ProAir HFA 90 mcg/actuation inhalation HFAA [Active]; Protonix 40 mg Oral TbEC 1 tab once daily [Active]; Xanax 0.5 mg Oral tab 1 tab 3 times per day [Active]; - PMHx: 07:00 gastritis; ibs; Crohn's; jb4 - Immunization history:: Adult Immunizations up to date. - Social history:: Smoking status: Patient uses tobacco products, denies chronic smoking, but will smoke occasionally, Patient/guardian denies using alcohol, the patient reports quitting approximately 2 years ago. - Ebola Screening: : No symptoms or risks identified at this time. ROS: 08:15 ENT: Negative for injury, pain, and discharge, Cardiovascular: Negative for chest pain, jr8 palpitations, and edema, MS/Extremity: Negative for injury and deformity, Skin: Negative for injury, rash, and discoloration, Neuro: Negative for headache, weakness, numbness, tingling, and seizure. 08:15 Eyes: Negative for injury, pain, redness, and discharge. 08:15 Constitutional: Positive for body aches, chills, fever. 08:15 Respiratory: Positive for cough, with yellow sputum, Negative for hemoptysis, shortness of breath, wheezing. 08:15 Abdomen/GI: Positive for abdominal pain, nausea, vomiting, and diarrhea, Negative for hematemesis, rectal bleeding. 08:15 Back: Negative for radiated pain. 08:15 : Negative for urinary symptoms. Exam: 08:15 Constitutional: This is a well developed, well nourished patient who is awake, alert, jr8 and in no acute distress. Skin: Warm, dry with normal turgor. Normal color with no rashes, no lesions, and no evidence of cellulitis. MS/ Extremity: Pulses equal, no cyanosis. Neurovascular intact. Full, normal range of motion. Neuro: Awake and alert, GCS 15, oriented to person, place, time, and situation. Normal gait. 08:15 Head/Face: Normocephalic, atraumatic. Eyes: Pupils equal round and reactive to light, extra-ocular motions intact. Lids and lashes normal. Conjunctiva and sclera are non-icteric and not injected. Cornea within normal limits. Periorbital areas with no swelling, redness, or edema. 08:15 Chest/axilla: Normal chest wall appearance and motion. Nontender with no deformity. No lesions are appreciated. 08:15 Cardiovascular: Regular rate and rhythm with a normal S1 and S2. No gallops, murmurs, or rubs. Normal PMI, no JVD. No pulse deficits. 08:15 Respiratory: the patient does not display signs of respiratory distress, Respirations: tachypnea, that is mild, Breath sounds: are clear throughout, no wheezing. 08:15 Abdomen/GI: Inspection: abdomen appears normal, Bowel sounds: normal, Palpation: soft, in all quadrants, mild abdominal tenderness, in the right lower quadrant, moderate abdominal tenderness, in the right upper quadrant, organomegaly is appreciated, Indicators: Padilla's sign is negative. 08:15 Back: Exam negative for CVA tenderness. Vital Signs: 07:00 BP 136 / 98; Pulse 117; Resp 24; Temp 100.4(O); Pulse Ox 97% on R/A; Weight 83.91 kg jb4 (R); Height 5 ft. 7 in. (170.18 cm) (R); Pain 9/10; 08:00 BP 127 / 78; Pulse 113; Resp 20; Temp 99(O); Pulse Ox 97% on R/A; Pain 9/10; rb1 09:00 BP 109 / 74; Pulse 90; Resp 17; Temp 98.9(O); Pulse Ox 99% on R/A; Pain 9/10; rb1 10:00 BP 110 / 73; Pulse 85; Resp 19; Temp 98.8(O); Pulse Ox 97% on R/A; Pain 9/10; rb1 10:35 BP 109 / 61; Pulse 83; Resp 16; Temp 98.8(O); Pulse Ox 99% on R/A; Pain 9/10; rb1 07:00 Body Mass Index 28.97 (83.91 kg, 170.18 cm) jb4 MDM: 07:02 Patient medically screened. jr8 09:48 Differential diagnosis: Nonspecific abd pain, cholecystitis, pancreatitis, jr8 appendicitis, diverticulitis, viral gastroenteritis, gastroenteritis, pneumonia, sepsis, viral syndrome. Data reviewed: vital signs, nurses notes, lab test result(s), radiologic studies, CT scan, plain films, and as a result, I will discharge patient. Data interpreted: Pulse oximetry: on room air is 97 %. Interpretation: normal. Counseling: I had a detailed discussion with the patient and/or guardian regarding: the historical points, exam findings, and any diagnostic results supporting the discharge/admit diagnosis, lab results, radiology results, the need for outpatient follow up, a family practitioner, to return to the emergency department if symptoms worsen or persist or if there are any questions or concerns that arise at home. Response to treatment: the patient's symptoms have markedly improved after treatment, patient is well hydrated. Special discussion: Based on the patient's Hx, exam, and Dx evaluation, there is no indication for emergent surgery or inpatient Tx. It is understood by the patient/guardian that if the Sx's persist or worsen they need to return immediately for re-evaluation. 06/15 07:10 Order name: Basic Metabolic Panel; Complete Time: :06/15 07:10 Order name: CBC with Diff; Complete Time: :06/15 07:10 Order name: Creatinine for Radiology; Complete Time: :06/15 07:10 Order name: Hepatic Function; Complete Time: :06/15 07:10 Order name: Lipase; Complete Time: :06/15 07:12 Order name: Urine Dipstick--Ancillary (enter results); Complete Time: 07:45 eb 06/15 07:10 Order name: XRAY Chest (1 view); Complete Time: 08:06/15 07:12 Order name: Urine --Ancillary (enter results); Complete Time: 07:45 eb 06/15 07:59 Order name: CT Abd/Pelvis - IV Contrast Only; Complete Time: 09:48 06/15 07:10 Order name: IV Saline Lock; Complete Time: 10:06/15 07:10 Order name: Labs collected and sent; Complete Time: 10:06/15 07:10 Order name: Urine Test (obtain specimen); Complete Time: :06/15 07:10 Order name: Urine Dipstick-Ancillary (obtain specimen); Complete Time: : Administered Medications: 08:00 Drug: NS 0.9% 1000 ml Route: IV; Rate: 1000 ml; Site: left jugular; rb1 09:22 Follow up: IV Status: Completed infusion rb1 08:00 Drug: Promethazine 12.5 mg Route: IVP; Site: left jugular; rb1 08:15 Follow up: Response: No adverse reaction; Nausea unchanged rb1 08:25 Drug: Tylenol 650 mg Route: PO; rb1 08:40 Follow up: Response: No adverse reaction rb1 09:25 Drug: ProTONIX 40 mg Route: IVP; Site: left jugular; rb1 09:40 Follow up: Response: No adverse reaction rb1 09:25 Drug: Dilaudid 1 mg Route: IVP; Site: left jugular; rb1 09:40 Follow up: Response: No adverse reaction; Pain is unchanged, physician notified rb1 10:25 Drug: Promethazine 12.5 mg Route: IVP; Site: left jugular; rb1 10:37 Follow up: Response: No adverse reaction rb1 Disposition: 06/15/19 09:53 Discharged to Home. Impression: Fever, unspecified, Crohn's disease [regional enteritis], Gastroenteritis. - Condition is Stable. - Discharge Instructions: Fever, Adult, Viral Gastroenteritis, Adult. - Medication Reconciliation Form, Thank You Letter, Antibiotic Education, Prescription Opioid Use form. - Follow up: Private Physician; When: 2 - 3 days; Reason: Recheck today's complaints, Continuance of care, Re-evaluation by your physician. - Problem is new. - Symptoms have improved. Signatures: Dispatcher [employer] EDMS Que Llamas PA PA jr8 Amanda Cisse, RN RN rb1 Kenton Garcia RN RN jb4 Corrections: (The following items were deleted from the chart) 10:46 09:53 06/15/2019 09:53 Discharged to Home. Impression: Fever, unspecified; Crohn's rb1 disease [regional enteritis]; Gastroenteritis. Condition is Stable. Forms are Medication Reconciliation Form, Thank You Letter, Antibiotic Education, Prescription Opioid Use. Follow up: Private Physician; When: 2 - 3 days; Reason: Recheck today's complaints, Continuance of care, Re-evaluation by your physician. Problem is new. Symptoms have improved. jr8
[2019-06-15 11:13] VITALS: BP 136/98; TEMP 100.4; O2SAT 97
== END 2019-06-15 10:46 | disposition home or self-care (01) ==
LOC: ER 06:45
DX: K50.90 Crohn's disease, unspecified, without complications (principal); K52.9 Noninfective gastroenteritis and colitis, unspecified; Z88.6 Allergy status to analgesic agent; Z88.5 Allergy status to narcotic agent; Z88.2 Allergy status to sulfonamides; Z88.8 Allergy status to other drugs, medicaments and biological substances
CPT/HCPCS: 36415; 71045; 74177; 80048; 80076; 81003; 81025; 83690; 85025; 96361; 96374; 96375; 99284; C9113; J1170; J2550; J7030; Q9967

== ENCOUNTER 2019-08-10 13:02 | Emergency (ER) | payer SELFPAY ==
[2019-08-10] MEDS ORDERED: HYDROMORPHONE HCL 1 MG/ML INJ ONE (14:48)
[2019-08-10] MEDS ORDERED: NA CHLORIDE 0.9% 100 ML IV ONE (14:48)
[2019-08-10] MEDS ORDERED: PROMETHAZINE 25 MG/ML VIAL ONE ×2 (14:48→16:53)
[2019-08-10] MEDS ORDERED: NA CHLORIDE 0.9% 1,000 ML ONE (14:49)
[2019-08-10 15:18] LABS: Absolute Lymphocytes (CBC) 0.4 K/uL (0.7-4.9); Basophils % 0.4 % (0-1.3); Hematocrit 44.5 % (36.0-45.0); Lymphocytes % 7.2 % (15.3-44.8); RBC Red Blood Cell Count 4.64 M/uL (3.86-4.86)
[2019-08-10 15:43] LABS: ALT/SGPT 21 U/L (12-78); AST/SGOT 27 U/L (15-37); Albumin 3.8 g/dL (3.4-5.0); Alkaline Phosphatase 70 U/L (45-117); BUN Blood Urea Nitrogen 12 mg/dL (7-18); Bicarbonate 25 mmol/L (21-32); Bilirubin Direct < 0.1 mg/dL (0-0.2); Bilirubin Total 0.7 mg/dL (0.2-1.0); Glucose Level 136 mg/dL (74-106); Lipase 94 U/L (73-393); Potassium 4.6 mmol/L (3.5-5.1); Protein, Total 8.1 g/dL (6.4-8.2); Sodium Level 137 mmol/L (136-145)
--- NOTE | 2019-08-10 16:21 | RAD REPORT ---
EXAM DESCRIPTION: CT - Abdomen Pelvis Wo Contrast - 08/10/2019 3:34 pm CLINICAL HISTORY: Abdominal pain. ABD PAIN COMPARISON: Abdomen Pelvis W Contrast dated 06/15/2019 TECHNIQUE: CT imaging of the abdomen and pelvis was performed without contrast. Solid organ, bowel a nd vascular assessment is limited due to lack of IV and oral contrast. All CT scans are performed using dose optimization technique as appropriate and may include automated exposure control or mA/KV adjustment according to patient size. FINDINGS: The lower lung hughes are clear. The liver, spleen, pancreas, adrenal glands and kidneys are within normal limits for a limited non-co ntrast examination. No bowel obstruction, free air, free fluid or abscess. Scattered colonic diverticulosis. The appendi x is normal. The osseous structures are within normal limits. IMPRESSION: No acute intra-abdominal or pelvic findings. A limited non-contrast examination was performed as detailed.
[2019-08-10] MEDS ORDERED: HYDROMORPHONE HCL 0.5 MG/0.5 ML INJ ONE (16:53)
--- NOTE | 2019-08-10 16:57 | ER ---
Nurse's Notes [facility] Name: Jessica Stearsn Age: 43 yrs Sex: Female : 1975 Arrival Date: 08/10/2019 Time: 13:10 Bed 18 Private MD: Diagnosis: Generalized abdominal pain Presentation: 08/10 13:10 Presenting complaint: EMS states: N/V/D and abdominal pain since 11 pm last night, hx ph of IBS and Crohns, states that she attempted to take promethazine but could not keep it down, VSS, pt afebrile. Transition of care: patient was not received from another setting of care. Transition of care: patient was not received from another setting of care. Onset of symptoms was August 10, 2019. Risk Assessment: Do you want to hurt yourself or someone else? Patient reports no desire to harm self or others. Initial Sepsis Screen: Does the patient meet any 2 criteria? No. Patient's initial sepsis screen is negative. Does the patient have a suspected source of infection? No. Patient's initial sepsis screen is negative. Care prior to arrival: None. 13:10 Method Of Arrival: EMS: [facility] ph 13:10 Acuity: EVELIA 3 ph Historical: - Allergies: 13:16 Bentyl; ph 13:16 Butalbital Compound; ph 13:16 Demerol; ph 13:16 Fentanyl; ph 13:16 Ketorolac; ph 13:16 Morphine; ph 13:16 Reglan; ph 13:16 Sulfa (Sulfonamide Antibiotics); ph 13:16 Talwin; ph 13:16 Toradol; ph 13:16 Zofran; ph - Home Meds: 13:16 Adderall XR 10 mg Oral cp24 1 cap once daily [Active]; Phenergan 25 mg Oral twice a day ph [Active]; ProAir HFA 90 mcg/actuation inhalation HFAA [Active]; Protonix 40 mg Oral TbEC 1 tab once daily [Active]; Xanax 0.5 mg Oral tab 1 tab 3 times per day [Active]; - PMHx: 13:16 Crohn's; gastritis; ibs; ph - Immunization history:: Adult Immunizations unknown. - Social history:: Smoking status: Patient/guardian denies using tobacco. - Ebola Screening: : No symptoms or risks identified at this time. Screenin:42 Abuse screen: Denies threats or abuse. Denies injuries from another. Nutritional ph screening: No deficits noted. Tuberculosis screening: No symptoms or risk factors identified. Fall Risk None identified. Assessment: 13:30 General: Appears in no apparent distress. uncomfortable, slender, Behavior is calm, ph cooperative, appropriate for age. Pain: Complains of pain in left upper quadrant. Neuro: Level of Consciousness is awake, alert, obeys commands, Oriented to person, place, time, situation. Cardiovascular: Capillary refill < 3 seconds in bilateral fingers Patient's skin is warm and dry. Respiratory: Airway is patent Respiratory effort is even, unlabored. GI: Abdomen is non-distended, Reports upper abdominal pain, diarrhea, nausea, vomiting, since 11 pm last night. Derm: Skin is intact, is healthy with good turgor, Skin is pink, warm \\T\\ dry. Musculoskeletal: Circulation, motion, and sensation intact. Range of motion: intact in all extremities. 14:30 Reassessment: Patient appears in no apparent distress at this time. Patient and/or ph family updated on plan of care and expected duration. Pain level reassessed. Patient is alert, oriented x 3, equal unlabored respirations, skin warm/dry/pink. Unable to obtain IV access, charge nurse notified and will attempt. 15:30 Reassessment: Patient appears in no apparent distress at this time. Patient and/or ph family updated on plan of care and expected duration. Pain level reassessed. Patient is alert, oriented x 3, equal unlabored respirations, skin warm/dry/pink. Pt reports slight relief after IV pain medication, states, " I'm still hurting though." Also requesting more nausea medication, ERP notified, no further orders at this time. 16:25 Reassessment: Patient appears in no apparent distress at this time. Patient and/or ph family updated on plan of care and expected duration. Pain level reassessed. Patient is alert, oriented x 3, equal unlabored respirations, skin warm/dry/pink. Pt ambulatory to restroom w/ steady gait, c/o pain and nausea, states, " If she's not going to give me anything else I'll take this IV out and go home.". 17:15 Reassessment: Patient appears in no apparent distress at this time. Patient and/or ph family updated on plan of care and expected duration. Pain level reassessed. Patient is alert, oriented x 3, equal unlabored respirations, skin warm/dry/pink. D/C pending IV fluids. Vital Signs: 13:14 BP 140 / 80; Pulse 108; Resp 16; Temp 97.9(A); Pulse Ox 100% ; lt1 14:00 BP 148 / 90; Pulse 97; Resp 18; Pulse Ox 100% on R/A; ph 15:00 BP 160 / 90; Pulse 99; Resp 16; Pulse Ox 99% on R/A; ph 16:00 BP 158 / 89; Pulse 96; Resp 16; Pulse Ox 98% on R/A; ph 17:00 BP 147 / 86; Pulse 95; Resp 18; Temp 97.8; Pulse Ox 100% on R/A; ph ED Course: 13:10 Patient arrived in ED. ph 13:12 Triage completed. ph 13:13 Que Llamas PA is PHCP. jr8 13:13 Karthikeyan Cerda MD is Attending Physician. jr8 13:30 Arm band placed on. ph 13:32 Melissa David FNP-C is PHCP. kb 13:32 Karthikeyan Cerda MD is Attending Physician. kb 14:31 Henna Naranjo, ZARA is Primary Nurse. ph 14:55 Initial lab(s) drawn, by nc, sent to lab. Inserted saline lock: 24 gauge in left wrist, aa5 using aseptic technique. 15:36 CT Abd/Pelvis - Without Contrast In Process Unspecified. EDMS 16:43 Patient has correct armband on for positive identification. Placed in gown. Bed in low ph position. Call light in reach. Side rails up X 1. Pulse ox on. NIBP on. 17:55 No provider procedures requiring assistance completed. IV discontinued, intact, ph bleeding controlled, No redness/swelling at site. Pressure dressing applied. Administered Medications: 14:58 Drug: Phenergan 12.5 mg Route: IVP; Site: left wrist; aa5 15:30 Follow up: Response: No adverse reaction ph 15:00 Drug: Dilaudid 1 mg Route: IVP; Infused Over: 30 mins; Site: left wrist; aa5 16:00 Follow up: Response: No adverse reaction; Pain is decreased ph 16:00 Drug: NS 0.9% 1000 ml Route: IV; Rate: 1000 ml; Site: left wrist; ph 17:55 Follow up: IV Status: Completed infusion; IV Intake: 400ml ph 17:09 Drug: Dilaudid 0.5 mg Route: IVP; Site: left wrist; ph 17:45 Follow up: Response: No adverse reaction; Pain is decreased; RASS: Alert and Calm (0) ph 17:10 Drug: Phenergan 12.5 mg Route: IVP; Site: left wrist; ph 17:40 Follow up: Response: No adverse reaction ph Intake: 17:55 IV: 400ml; Total: 400ml. ph Outcome: 16:57 Discharge ordered by . kb 17:56 Patient left the ED. ph 17:56 Discharged to home ambulatory, with family. ph 17:56 Condition: improved 17:56 Discharge instructions given to patient, Instructed on discharge instructions, follow up and referral plans. Demonstrated understanding of instructions, follow-up care. Signatures: Dispatcher [employer] EDMelissa Alfonso, WATER RESOURCES PROGRAM DIRECTOR-C WATER RESOURCES PROGRAM DIRECTOR-CkIvelisse Nickerson RN RN aa5 Que Llamas PA PA jr8 Henna Naranjo RN RN Asiya, Lachelle lt1 Corrections: (The following items were deleted from the chart) 16:42 15:30 Reassessment: Patient appears in no apparent distress at this time. Patient ph and/or family updated on plan of care and expected duration. Pain level reassessed. Patient is alert, oriented x 3, equal unlabored respirations, skin warm/dry/pink. Pt reports slight relief after IV pain medication, states, " I'm still hurting though." Also requesting more nausea medication, ERP notified, no further orders at this itme ph 19:18 17:35 IV Status: Completed infusion; IV Intake: 400ml ph ph
[2019-08-10 17:27] LABS: Blood Morphology Comment NOT SEEN (NOT SEEN); Platelet Estimate ADEQ; Urine White Blood Cell Casts OK
--- NOTE | 2019-08-10 17:58 | EDPHYS ---
Physician Documentation [facility] Name: Jessica Stearns Age: 43 yrs Sex: Female : 1975 Arrival Date: 08/10/2019 Time: 13:10 Bed 18 Private MD: ED Physician Karthikeyan Cerda HPI: 08/10 14:06 This 43 yrs old Black Female presents to ER via EMS with complaints of kb Nausea/Vomiting/Diarrhea, Abdominal Pain. 14:06 The patient presents with abdominal pain that is diffuse. Onset: The symptoms/episode kb began/occurred last night, 2300. The symptoms do not radiate. Associated signs and symptoms: Pertinent positives: nausea, vomiting, and diarrhea. The symptoms are described as constant. Modifying factors: The symptoms are alleviated by nothing, the symptoms are aggravated by nothing. Severity of pain: At its worst the pain was moderate in the emergency department the pain is unchanged. The patient has experienced similar episodes in the past. The patient has not recently seen a physician. 14:08 Pt reports she has been having diffuse abd pain since 2300 last night. Reports if feels kb like a crohns flare up. Is not on any medication for crohn's because the medication she had been on caused side effects and she couldn't take it. Historical: - Allergies: 13:16 Bentyl; ph 13:16 Butalbital Compound; ph 13:16 Demerol; ph 13:16 Fentanyl; ph 13:16 Ketorolac; ph 13:16 Morphine; ph 13:16 Reglan; ph 13:16 Sulfa (Sulfonamide Antibiotics); ph 13:16 Talwin; ph 13:16 Toradol; ph 13:16 Zofran; ph - Home Meds: 13:16 Adderall XR 10 mg Oral cp24 1 cap once daily [Active]; Phenergan 25 mg Oral twice a day ph [Active]; ProAir HFA 90 mcg/actuation inhalation HFAA [Active]; Protonix 40 mg Oral TbEC 1 tab once daily [Active]; Xanax 0.5 mg Oral tab 1 tab 3 times per day [Active]; - PMHx: 13:16 Crohn's; gastritis; ibs; ph - Immunization history:: Adult Immunizations unknown. - Social history:: Smoking status: Patient/guardian denies using tobacco. - Ebola Screening: : No symptoms or risks identified at this time. ROS: 14:05 Constitutional: Negative for fever, chills, and weight loss, ENT: Negative for injury, kb pain, and discharge, Neck: Negative for injury, pain, and swelling, Cardiovascular: Negative for chest pain, palpitations, and edema, Respiratory: Negative for shortness of breath, cough, wheezing, and pleuritic chest pain, Back: Negative for injury and pain, : Negative for injury, bleeding, discharge, and swelling, MS/Extremity: Negative for injury and deformity, Skin: Negative for injury, rash, and discoloration, Neuro: Negative for headache, weakness, numbness, tingling, and seizure. 14:05 Abdomen/GI: Positive for abdominal pain, nausea, vomiting, and diarrhea. Exam: 14:05 Constitutional: This is a well developed, well nourished patient who is awake, alert, kb and in no acute distress. Head/Face: Normocephalic, atraumatic. Neck: Trachea midline, no thyromegaly or masses palpated, and no cervical lymphadenopathy. Supple, full range of motion without nuchal rigidity, or vertebral point tenderness. No Meningismus. Chest/axilla: Normal chest wall appearance and motion. Nontender with no deformity. No lesions are appreciated. Cardiovascular: Regular rate and rhythm with a normal S1 and S2. No gallops, murmurs, or rubs. Normal PMI, no JVD. No pulse deficits. Respiratory: Lungs have equal breath sounds bilaterally, clear to auscultation and percussion. No rales, rhonchi or wheezes noted. No increased work of breathing, no retractions or nasal flaring. Back: No spinal tenderness. No costovertebral tenderness. Full range of motion. Skin: Warm, dry with normal turgor. Normal color with no rashes, no lesions, and no evidence of cellulitis. MS/ Extremity: Pulses equal, no cyanosis. Neurovascular intact. Full, normal range of motion. Neuro: Awake and alert, GCS 15, oriented to person, place, time, and situation. Cranial nerves II-XII grossly intact. Motor strength 5/5 in all extremities. Sensory grossly intact. Cerebellar exam normal. Normal gait. 14:05 Abdomen/GI: Inspection: abdomen appears normal, Bowel sounds: normal, Palpation: soft, in all quadrants, moderate abdominal tenderness, in the left upper quadrant. Vital Signs: 13:14 BP 140 / 80; Pulse 108; Resp 16; Temp 97.9(A); Pulse Ox 100% ; lt1 14:00 BP 148 / 90; Pulse 97; Resp 18; Pulse Ox 100% on R/A; ph 15:00 BP 160 / 90; Pulse 99; Resp 16; Pulse Ox 99% on R/A; ph 16:00 BP 158 / 89; Pulse 96; Resp 16; Pulse Ox 98% on R/A; ph 17:00 BP 147 / 86; Pulse 95; Resp 18; Temp 97.8; Pulse Ox 100% on R/A; ph MDM: 13:34 Patient medically screened. kb 14:05 Data reviewed: vital signs, nurses notes. Data interpreted: Pulse oximetry: on room air kb is 100 %. Interpretation: normal. 16:49 Counseling: I had a detailed discussion with the patient and/or guardian regarding: the kb historical points, exam findings, and any diagnostic results supporting the discharge/admit diagnosis, lab results, radiology results, the need for outpatient follow up, a clinical nurse specialist, to return to the emergency department if symptoms worsen or persist or if there are any questions or concerns that arise at home. 08/10 13:35 Order name: Basic Metabolic Panel; Complete Time: 15:51 kb 08/10 13:35 Order name: CBC with Diff; Complete Time: 17:35 kb 08/10 13:35 Order name: Hepatic Function; Complete Time: 15:51 kb 08/10 13:35 Order name: Lipase; Complete Time: 15:51 kb 08/10 14:59 Order name: CT Abd/Pelvis - Without Contrast; Complete Time: 16:31 kb 08/10 17:28 Order name: CBC Smear Scan; Complete Time: 17:35 EDMS 08/10 13:35 Order name: IV Saline Lock; Complete Time: 15:00 kb 08/10 13:35 Order name: Labs collected and sent; Complete Time: 15:00 kb Administered Medications: 14:58 Drug: Phenergan 12.5 mg Route: IVP; Site: left wrist; aa5 15:30 Follow up: Response: No adverse reaction ph 15:00 Drug: Dilaudid 1 mg Route: IVP; Infused Over: 30 mins; Site: left wrist; aa5 16:00 Follow up: Response: No adverse reaction; Pain is decreased ph 16:00 Drug: NS 0.9% 1000 ml Route: IV; Rate: 1000 ml; Site: left wrist; ph 17:55 Follow up: IV Status: Completed infusion; IV Intake: 400ml ph 17:09 Drug: Dilaudid 0.5 mg Route: IVP; Site: left wrist; ph 17:45 Follow up: Response: No adverse reaction; Pain is decreased; RASS: Alert and Calm (0) ph 17:10 Drug: Phenergan 12.5 mg Route: IVP; Site: left wrist; ph 17:40 Follow up: Response: No adverse reaction ph Disposition: 08/10/19 16:57 Discharged to Home. Impression: Generalized abdominal pain. - Condition is Stable. - Discharge Instructions: Abdominal Pain, Adult, [id number]. - Medication Reconciliation Form, Thank You Letter, Antibiotic Education, Prescription Opioid Use form. - Follow up: Emergency Department; When: As needed; Reason: Worsening of condition. Follow up: Private Physician; When: 2 - 3 days; Reason: Recheck today's complaints, Continuance of care, Re-evaluation by your physician. Signatures: Dispatcher [employer] EDMS Melissa David, TANK TRUCK MILK RECEIVER-C TANK TRUCK MILK RECEIVER-Ivelisse Gardiner RN RN aa5 Henna Naranjo RN RN ph Corrections: (The following items were deleted from the chart) 14:09 14:06 The patient has not experienced similar symptoms in the past, [facility] 17:56 16:57 08/10/2019 16:57 Discharged to Home. Impression: Generalized abdominal pain. ph Condition is Stable. Forms are Medication Reconciliation Form, Thank You Letter, Antibiotic Education, Prescription Opioid Use. Follow up: Emergency Department; When: As needed; Reason: Worsening of condition. Follow up: Private Physician; When: 2 - 3 days; Reason: Recheck today's complaints, Continuance of care, Re-evaluation by your physician. kb
[2019-08-10 18:27] VITALS: TEMP 97.9
[2019-08-10 18:31] VITALS: BP 158/89; O2SAT 98
== END 2019-08-10 17:56 | disposition home or self-care (01) ==
LOC: ER 13:02
DX: R10.84 Generalized abdominal pain (principal); K29.70 Gastritis, unspecified, without bleeding; Z88.2 Allergy status to sulfonamides; Z88.6 Allergy status to analgesic agent; Z88.8 Allergy status to other drugs, medicaments and biological substances
CPT/HCPCS: 36415; 74176; 80048; 80076; 83690; 85025; 96361; 96374; 96375; 99284; J1170; J2550; J7030

== ENCOUNTER 2019-08-12 13:21 | Emergency (ER) | payer SELFPAY ==
[2019-08-12] MEDS ORDERED: ONDANSETRON 4 MG/2 ML VIAL ONE (14:40)
[2019-08-12] MEDS ORDERED: NA CHLORIDE 0.9% 1,000 ML ONE (14:40)
[2019-08-12] MEDS ORDERED: HYDROMORPHONE HCL 1 MG/ML INJ ONE (14:40)
[2019-08-12 15:05] LABS: Urine Blood NEGATIVE (NEG); Urine Glucose NEGATIVE (NEG); Urine Protein NEGATIVE (NEG)
[2019-08-12 15:07] LABS: Barbiturates NEGATIVE (NEGATIVE); Benzodiazepines NEGATIVE (NEGATIVE); Cocaine NEGATIVE (NEGATIVE); METHAMPHETAM NEGATIVE (NEGATIVE); Methadone NEGATIVE (NEGATIVE); Opiates NEGATIVE (NEGATIVE); Phencyclidine NEGATIVE (NEGATIVE); THC Cannibis POSITIVE (NEGATIVE)
--- NOTE | 2019-08-12 16:28 | ER ---
Nurse's Notes [facility] Name: Jessica Stearns Age: 43 yrs Sex: Female : 1975 Arrival Date: 08/12/2019 Time: 13:26 Bed 8 Private MD: Diagnosis: Abdominal tenderness;Vomiting;Diarrhea, unspecified Presentation: 08/12 13:34 Presenting complaint: Patient states: was seen here on for abd pain and aa5 vomiting. Pt states "the GI doctor can't see me until August 22 and I can't keep my Phenergan down". Transition of care: patient was not received from another setting of care. Onset of symptoms was July 2019. Risk Assessment: Do you want to hurt yourself or someone else? Patient reports no desire to harm self or others. Initial Sepsis Screen: Does the patient meet any 2 criteria? No. Patient's initial sepsis screen is negative. Does the patient have a suspected source of infection? No. Patient's initial sepsis screen is negative. Care prior to arrival: None. 13:34 Acuity: EVELIA 3 aa5 13:34 Method Of Arrival: Wheelchair aa5 [employer]: 13:36 LMP N/A - Hysterectomy aa5 Historical: - Allergies: 13:36 Bentyl; aa5 13:36 Butalbital Compound; aa5 13:36 Demerol; aa5 13:36 Fentanyl; aa5 13:36 Ketorolac; aa5 13:36 Morphine; aa5 13:36 Reglan; aa5 13:36 Sulfa (Sulfonamide Antibiotics); aa5 13:36 Talwin; aa5 13:36 Toradol; aa5 13:36 Zofran; aa5 - Home Meds: 13:36 Adderall XR 10 mg Oral cp24 1 cap once daily [Active]; Phenergan 25 mg Oral twice a day aa5 [Active]; ProAir HFA 90 mcg/actuation inhalation HFAA [Active]; Protonix 40 mg Oral TbEC 1 tab once daily [Active]; Xanax 0.5 mg Oral tab 1 tab 3 times per day [Active]; - PMHx: 13:36 Crohn's; gastritis; ibs; aa5 - Immunization history:: Adult Immunizations up to date. - Social history:: Smoking status: Patient/guardian denies using tobacco. - Ebola Screening: : No symptoms or risks identified at this time. - Family history:: not pertinent. Screenin:32 Abuse screen: Denies threats or abuse. Denies injuries from another. Nutritional ch screening: No deficits noted. Tuberculosis screening: No symptoms or risk factors identified. Fall Risk None identified. Assessment: 15:32 General: Appears in no apparent distress. uncomfortable, Behavior is calm, cooperative, ch appropriate for age. Pain: Complains of pain in abdomen Pain currently is 9 out of 10 on a pain scale. Neuro: No deficits noted. Respiratory: Airway is patent Respiratory effort is even, unlabored, Breath sounds are clear bilaterally. GI: Bowel sounds present X 4 quads. Abd is soft X 4 quads Abdomen is tender to palpation in right upper quadrant and left upper quadrant. Derm: Skin is normal. 16:40 Reassessment: Patient appears in no apparent distress at this time. pt states she feels ch like she has been very patients and wants pain medication and nausea medication. pt has 5 missed attempts for iv. dr sharp notified, and notified of pt recent visit. prior visit labs reviewed. 16:58 Reassessment: AWAITING PHYSICIAN TO ASSESS PT AND DISCUSS PLAN OF CARE PRIOR TO ch MEDICATING AND DISCHARGE. 17:15 Reassessment: Patient appears in no apparent distress at this time. Patient and/or ch family updated on plan of care and expected duration. Pain level reassessed. Patient is alert, oriented x 3, equal unlabored respirations, skin warm/dry/pink. pt states she wants us to fix the problem, and fix the pain. pt educated on need for GI doctor and specialized testing. Patient states symptoms have not improved. Vital Signs: 13:36 BP 117 / 79; Pulse 79; Resp 16 S; Temp 97.9(O); Pulse Ox 100% on R/A; Weight 79.83 kg aa5 (R); Height 5 ft. 6 in. (167.64 cm) (R); Pain 8/10; 15:32 BP 122 / 62; Pulse 70; Resp 16; Temp 98.1; Pulse Ox 99% on R/A; Pain 9/10; ch 15:49 BP 129 / 89 Supine; Pulse 76; Resp 16; Pulse Ox 100% ; jl7 15:51 BP 136 / 82 Sitting; Pulse 89; jl7 15:53 BP 128 / 91 Standing; Pulse 89; jl7 17:15 BP 130 / 68; Pulse 82; Resp 16; Temp 98.2; Pulse Ox 99% on R/A; Pain 7/10; ch 13:36 Body Mass Index 28.41 (79.83 kg, 167.64 cm) aa5 ED Course: 13:26 Patient arrived in ED. mr 13:34 Arm band placed on. aa5 13:35 Triage completed. aa 13:40 Alexis Sharp MD is Attending Physician. [facility] 13:47 Donna Hayward, ZARA is Primary Nurse. ch 15:32 No apparent distress. Resting quietly. ch 15:32 Patient has correct armband on for positive identification. Bed in low position. Call ch light in reach. Side rails up X 1. 15:32 No provider procedures requiring assistance completed. Missed attempt(s): 22 gauge in ch left in right forearm. antecubital area. Bleeding controlled, band aid applied, catheter tip intact. 15:40 Missed attempt(s): 22 gauge 24 gauge in left hand. forearm. antecubital area. missed ch attempts by Quirino, and Liliana. Bleeding controlled, band aid applied, catheter tip intact. 16:26 Vitaly Mcguire MD is Referral Physician. [facility] 19:36 Patient did not have IV access during this emergency room visit. ch Administered Medications: 17:00 Drug: Dilaudid 1 mg Route: IM; Site: left vastus lateralis; ch 17:15 Follow up: Response: No adverse reaction ch 17:20 Follow up: Response: No adverse reaction ch 17:00 Drug: Phenergan 25 mg Route: IM; Site: left vastus lateralis; ch 17:15 Follow up: Response: No adverse reaction ch 17:19 Follow up: Response: No adverse reaction; Pain is decreased ch 17:19 Not Given (other intervention used): NS 0.9% 1000 ml IV at 1 bolus Per protocol; 1000 ch mL bolus 17:19 Not Given (other intervention used): Dilaudid 1 mg IVP once; RASS on ADMIN: Combtv4, ch Very Agttd3, Agttd2, Rstlss1, AlertClm0, Drwsy-1, Lt Sdtn-2, Mod Sdtn-3, Dp Sdtn-4, UnArsble-5 17:19 Not Given (other intervention used): Phenergan 12.5 mg IVP once ch Outcome: 16:27 Discharge ordered by . michael 17:15 Discharged to home ambulatory, with family. 17:15 Condition: stable 17:15 Discharge instructions given to patient, Instructed on discharge instructions, follow up and referral plans. medication usage, Demonstrated understanding of instructions, follow-up care, medications. 17:20 Patient left the ED. Signatures: Donna Hayward RN RN Alexis Kerns MD MD cha Rivera, Mary mr Connor, Ivelisse, RN RN aa5 Bessie Long RN RN jl7 Corrections: (The following items were deleted from the chart) 15:58 15:51 BP 128 / 91 Sitting; Pulse 74bpm; jl7 jl7 15:58 15:51 BP 136 / 82; Pulse 89bpm; jl7 jl7
--- NOTE | 2019-08-12 16:28 | EDPHYS ---
Physician Documentation [facility] Name: Jessica Stearns Age: 43 yrs Sex: Female : 1975 Arrival Date: 08/12/2019 Time: 13:26 Bed 8 Private MD: ED Physician Alexis Sharp HPI: 08/12 14:31 This 43 yrs old Black Female presents to ER via Wheelchair with complaints of Abdominal michael Pain, Nausea/Vomiting/Diarrhea. 14:31 The patient presents to the emergency department with nausea, vomiting, diarrhea. michael Onset: The symptoms/episode began/occurred 2 day(s) ago. Possible causes: unknown. The symptoms are aggravated by nothing. The symptoms are alleviated by nothing. Associated signs and symptoms: Pertinent positives: abdominal pain, nausea, vomiting. Severity of symptoms:. The patient has not experienced similar symptoms in the past. TEST EVALUATOR: 13:36 LMP N/A - Hysterectomy aa5 Historical: - Allergies: 13:36 Bentyl; aa5 13:36 Butalbital Compound; aa5 13:36 Demerol; aa5 13:36 Fentanyl; aa5 13:36 Ketorolac; aa5 13:36 Morphine; aa5 13:36 Reglan; aa5 13:36 Sulfa (Sulfonamide Antibiotics); aa5 13:36 Talwin; aa5 13:36 Toradol; aa5 13:36 Zofran; aa5 - Home Meds: 13:36 Adderall XR 10 mg Oral cp24 1 cap once daily [Active]; Phenergan 25 mg Oral twice a day aa5 [Active]; ProAir HFA 90 mcg/actuation inhalation HFAA [Active]; Protonix 40 mg Oral TbEC 1 tab once daily [Active]; Xanax 0.5 mg Oral tab 1 tab 3 times per day [Active]; - PMHx: 13:36 Crohn's; gastritis; ibs; aa5 - Immunization history:: Adult Immunizations up to date. - Social history:: Smoking status: Patient/guardian denies using tobacco. - Ebola Screening: : No symptoms or risks identified at this time. - Family history:: not pertinent. ROS: 14:31 Constitutional: Negative for fever, chills, and weight loss, Eyes: Negative for injury, michael pain, redness, and discharge, ENT: Negative for injury, pain, and discharge, Neck: Negative for injury, pain, and swelling, Cardiovascular: Negative for chest pain, palpitations, and edema, Respiratory: Negative for shortness of breath, cough, wheezing, and pleuritic chest pain, Back: Negative for injury and pain, : Negative for injury, bleeding, discharge, and swelling, MS/Extremity: Negative for injury and deformity, Skin: Negative for injury, rash, and discoloration, Neuro: Negative for headache, weakness, numbness, tingling, and seizure. 14:31 Abdomen/GI: Positive for abdominal pain, nausea and vomiting, diarrhea. Exam: 14:31 Constitutional: This is a well developed, well nourished patient who is awake, alert, michael and in no acute distress. Head/Face: Normocephalic, atraumatic. Eyes: Pupils equal round and reactive to light, extra-ocular motions intact. Lids and lashes normal. Conjunctiva and sclera are non-icteric and not injected. Cornea within normal limits. Periorbital areas with no swelling, redness, or edema. ENT: Nares patent. No nasal discharge, no septal abnormalities noted. Tympanic membranes are normal and external auditory canals are clear. Oropharynx with no redness, swelling, or masses, exudates, or evidence of obstruction, uvula midline. Mucous membranes moist. Neck: Trachea midline, no thyromegaly or masses palpated, and no cervical lymphadenopathy. Supple, full range of motion without nuchal rigidity, or vertebral point tenderness. No Meningismus. Chest/axilla: Normal chest wall appearance and motion. Nontender with no deformity. No lesions are appreciated. Cardiovascular: Regular rate and rhythm with a normal S1 and S2. No gallops, murmurs, or rubs. Normal PMI, no JVD. No pulse deficits. Respiratory: Lungs have equal breath sounds bilaterally, clear to auscultation and percussion. No rales, rhonchi or wheezes noted. No increased work of breathing, no retractions or nasal flaring. Back: No spinal tenderness. No costovertebral tenderness. Full range of motion. Skin: Warm, dry with normal turgor. Normal color with no rashes, no lesions, and no evidence of cellulitis. MS/ Extremity: Pulses equal, no cyanosis. Neurovascular intact. Full, normal range of motion. Neuro: Awake and alert, GCS 15, oriented to person, place, time, and situation. Cranial nerves II-XII grossly intact. Motor strength 5/5 in all extremities. Sensory grossly intact. Cerebellar exam normal. Normal gait. Psych: Awake, alert, with orientation to person, place and time. Behavior, mood, and affect are within normal limits. 14:31 Abdomen/GI: Inspection: distension, Bowel sounds: normal, Liver: no appreciated palpable abnormalities, Hernia: not appreciated. Vital Signs: 13:36 BP 117 / 79; Pulse 79; Resp 16 S; Temp 97.9(O); Pulse Ox 100% on R/A; Weight 79.83 kg aa5 (R); Height 5 ft. 6 in. (167.64 cm) (R); Pain 8/10; 15:32 BP 122 / 62; Pulse 70; Resp 16; Temp 98.1; Pulse Ox 99% on R/A; Pain 9/10; ch 15:49 BP 129 / 89 Supine; Pulse 76; Resp 16; Pulse Ox 100% ; jl7 15:51 BP 136 / 82 Sitting; Pulse 89; jl7 15:53 BP 128 / 91 Standing; Pulse 89; jl7 17:15 BP 130 / 68; Pulse 82; Resp 16; Temp 98.2; Pulse Ox 99% on R/A; Pain 7/10; ch 13:36 Body Mass Index 28.41 (79.83 kg, 167.64 cm) aa5 MDM: 13:40 Patient medically screened. [facility] 14:34 Data reviewed: vital signs, nurses notes, lab test result(s). [facility] 08/12 14:31 Order name: UDS; Complete Time: 15:41 [facility] 08/12 14:54 Order name: Urine Dipstick--Ancillary (enter results); Complete Time: 15:41 08/12 14:54 Order name: Urine --Ancillary (enter results); Complete Time: 15:41 08/12 14:31 Order name: Urine Dipstick-Ancillary (obtain specimen); Complete Time: 15:16 [facility] 08/12 14:31 Order name: Urine Test (obtain specimen); Complete Time: 15:16 [facility] 08/12 15:45 Order name: Orthostatics; Complete Time: 15:56 [facility] Administered Medications: 17:00 Drug: Dilaudid 1 mg Route: IM; Site: left vastus lateralis; 17:15 Follow up: Response: No adverse reaction ch 17:20 Follow up: Response: No adverse reaction 17:00 Drug: Phenergan 25 mg Route: IM; Site: left vastus lateralis; 17:15 Follow up: Response: No adverse reaction ch 17:19 Follow up: Response: No adverse reaction; Pain is decreased ch 17:19 Not Given (other intervention used): NS 0.9% 1000 ml IV at 1 bolus Per protocol; 1000 ch mL bolus 17:19 Not Given (other intervention used): Dilaudid 1 mg IVP once; RASS on ADMIN: Combtv4, ch Very Agttd3, Agttd2, Rstlss1, AlertClm0, Drwsy-1, Lt Sdtn-2, Mod Sdtn-3, Dp Sdtn-4, UnArsble-5 17:19 Not Given (other intervention used): Phenergan 12.5 mg IVP once ch Disposition: 08/12/19 16:27 Discharged to Home. Impression: Abdominal tenderness, Vomiting, Diarrhea, unspecified. - Condition is Stable. - Discharge Instructions: Abdominal Pain, Adult, Food Choices to Help Relieve Diarrhea, Adult, Diarrhea, Adult, Nausea and Vomiting, Adult, Nausea and Vomiting, Adult, Htyi-we-Cpxo, Abdominal Pain, Adult, Xltl-zl-Qhqf, Diarrhea, Adult, Qkyt-vj-Eqns. - Prescriptions for Pepcid 20 mg Oral Tablet - take 1 tablet by ORAL route every 12 hours for 10 days; 20 tablet. promethazine 25 mg Oral Tablet - take 1 tablet by ORAL route every 6 hours As needed; 20 tablet. - Medication Reconciliation Form, Thank You Letter, Antibiotic Education, Prescription Opioid Use form. - Follow up: Private Physician; When: 2 - 3 days; Reason: Recheck today's complaints, Continuance of care, Re-evaluation by your physician. Follow up: Vitaly Mcguire; When: 2 - 3 days; Reason: Recheck today's complaints, Re-evaluation by your physician. - Problem is new. - Symptoms have improved. Signatures: Dispatcher [employer] EDDonna Patel RN RN ch Anderson, Corey, MD MD cha Calderon, Audri RN RN aa5 Corrections: (The following items were deleted from the chart) 16:31 14:32 BASIC METABOLIC PANEL+C.LAB.BRZ ordered. [facility] EDMS 16:31 14:32 CBC+H.LAB.BRZ ordered. [facility] EDMS 16:31 14:32 Creatinine for Radiology+C.LAB.BRZ ordered. [facility] EDMS 16:31 14:32 HEPATIC FUNCTION+C.LAB.BRZ ordered. [facility] EDMS 16:31 14:32 LIPASE+C.LAB.BRZ ordered. [facility] 17:20 16:27 08/12/2019 16:27 Discharged to Home. Impression: Abdominal tenderness; Vomiting; ch Diarrhea, unspecified. Condition is Stable. Discharge Instructions: Abdominal Pain, Adult, Food Choices to Help Relieve Diarrhea, Adult, Diarrhea, Adult, Nausea and Vomiting, Adult, Nausea and Vomiting, Adult, Mwwa-ir-Qdoj, Abdominal Pain, Adult, Plrp-au-Szhu, Diarrhea, Adult, Ywwk-wx-Oyvl. Prescriptions for Pepcid 20 mg Oral Tablet - take 1 tablet by ORAL route every 12 hours for 10 days; 20 tablet, promethazine 25 mg Oral Tablet - take 1 tablet by ORAL route every 6 hours As needed; 20 tablet. and Forms are Medication Reconciliation Form, Thank You Letter, Antibiotic Education, Prescription Opioid Use. Follow up: Private Physician; When: 2 - 3 days; Reason: Recheck today's complaints, Continuance of care, Re-evaluation by your physician. Follow up: Vitaly Mcguire; When: 2 - 3 days; Reason: Recheck today's complaints, Re-evaluation by your physician. Problem is new. Symptoms have improved. michael
[2019-08-12] MEDS ORDERED: PROMETHAZINE 25 MG/ML VIAL ONE (16:45)
[2019-08-12 17:33] VITALS: TEMP 98.1
[2019-08-12 17:35] VITALS: O2SAT 100
[2019-08-12 17:37] VITALS: BP 128/91
== END 2019-08-12 17:20 | disposition home or self-care (01) ==
LOC: ER 13:21
DX: R11.10 Vomiting, unspecified (principal); R19.7 Diarrhea, unspecified; Z88.2 Allergy status to sulfonamides; Z88.5 Allergy status to narcotic agent; Z88.6 Allergy status to analgesic agent; Z88.8 Allergy status to other drugs, medicaments and biological substances
CPT/HCPCS: 80307; 81003; 81025; 96372; 99283; J1170; J2405; J2550; J7030

== ENCOUNTER 2020-10-24 05:44 | Emergency (ER) | payer SELFPAY ==
--- OUTSIDE RECORDS SUMMARY | 2020-10-24 06:50 | XMS REPORT | Continuity of Care Document ---
:1975 Author Organization [facility] t Address [address] [place] [address] Care Team Providers Name Role Phone Adiel FOREMAN Attending Clinician James RN, E Attending Clinician Doctor Unassigned, Name Attending Clinician Unavailable Only, Test Attending Clinician Unavailable Adiel FOREMAN Admitting Clinician Problems Condition Condition Condition Status Onset Resolution Last Treating Co mments Source Name Details Category Date Date Treatment Clinician Date Periapical Periapical Disease Active 2012-11 H arris abscess abscess 0-21 Health 00:00: 00 Facial Facial Disease Active 2012-11 [place] swelling swelling 0-21 Health 00:00: 00 Chest pain Chest pain Disease Active 2012-11 H arris 0-21 Health 00:00: 00 Tooth Tooth Disease Active [place] decayed decayed Health Allergies, Adverse Reactions, Alerts Allergy Allergy Status Severity Reaction(s) Onset Inactive Treating Comm ents Source Name Type Date Date Clinician Metoclop Propensi Active Rash 2012-11 [place] ramide ty to 0-21 Health adverse 00:00: reaction 00 s to drug Sulfa Propensi Active Rash 2012-11 Abdi (Sulfona ty to 0-21 Health mide adverse 00:00: Antibiot reaction 00 ics) s to drug Ketorola Propensi Active Rash 2012-11 Abdi c ty to 0-21 Health Trometha adverse 00:00: mine reaction 00 s to drug Ondanset Propensi Active Rash 2012-11 Abdi charu Hcl ty to 0-21 Health (Pf) adverse 00:00: reaction 00 s to drug Social History Social Habit Start Date Stop Date Quantity Comments Source Alcohol Comment social (beer, [facility] wine) Sex Assigned At [facility] alth Alcohol intake 2013-09-04 2013-09-04 Current drinker Addie marquez [employer] 00:00:00 00:00:00 of alcohol (finding) Smoking Status Start Date Stop Date Source Never smoker [facility] Medications Ordered Filled Start Stop Current Ordering Indication Dosage Frequency Signature Comments Components Source Medication Medication Date Date Medication? Clinician (SIG) Name Name pantoprazol Yes 20mg QD Take 20 mg [place] e 9-23 by [facility] (PROTONIX) 23:40: daily. 20 mg 31 delayed release tablet HYDROcodone 2012-11 Yes Periapical 1{tbl} Take 1 [place] -acetaminop 0-22 abscess tablet by [facility] (NORBeetle Beats) 00:00: mouth 10-325 mg 00 every 6 tablet hours as needed for Pain. HYDROcodone 2012-11 Yes Caries 1{tbl} Take 1 [place] -acetaminop 0-21 tablet by [facility] hen (FORMTEKCO) 00:00: mouth 5-325 mg 00 every 6 tablet hours as needed for Pain. Procedures This patient has no known procedures. Plan of Care Planned Activity Planned Date Details Comments Source Future Scheduled Test 2020-08-15 00:00:00 IMM Influenza [facility] Seasonal Aug to January (>/= 19 yrs) [code = IMM Influenza Seasonal Aug to January (>/= 19 yrs)] Future Scheduled Test 2014 00:00:00 Breast Cancer Scrn [facility] (Yearly) [code = Breast Cancer Scrn (Yearly)] Future Scheduled Test 2004 00:00:00 Screening for [facility] malignant neoplasm of cervix (procedure) [code = 521246251] Future Scheduled Test 2004 00:00:00 Screening for [facility] malignant neoplasm of cervix (procedure) [code = 375761357] Encounters Start End Encounter Admission Attending Care Care Encounter Source Date/Time Date/Time Type Type Clinicians Facility Department ID 2020-10-14 2020-10-19 [facility] Precious Chun [id number] 05:48:00 15:50:00 Encounter Jayy [id number] [facility] [id number] 2020-10-16 2020-10-16 Patient Deepika Ramirez [id number] 00:00:00 00:00:00 Outreach E Narayanan [id number] [place] [id number] 2020-10-14 2020-10-14 Orders Doctor LETICIA [id number] 00:00:00 00:00:00 Only Unassigned, JAYY [id number] [place] [facility] [id number] 2020 2020 Laboratory Only, Adc [facility] [id number] 14:56:46 15:11:46 Only Test [place] [id number] [place] [id number] [place] [id number] 2020-10-07 2020-10-07 Patient Deepika Ramirez [id number] 00:00:00 00:00:00 Outreach E Narayanan [id number] [place] [id number] 2019-12-09 2019-12-09 Emergency E MHSE [id number] MH 09:16:00 09:16:00 [facility] Results This patient has no known results.
--- OUTSIDE RECORDS SUMMARY | 2020-10-24 06:50 | XMS REPORT | Clinical Summary ---
:1975 Author Organization [facility] Address [address] [place] [address] Care Team Providers Name Role Phone Unavailable Primary Care Provider Unavailable Allergies Active Allergy Reactions Severity Noted Date Comments Metoclopramide Rash 09/04/2013 Sulfa (Sulfonamide Antibiotics) Rash 3 Ketorolac Tromethamine Rash 09/04/2013 Ondansetron Hcl (Pf) Rash 09/04/2013 Medications Medication Sig Dispensed Refills Start Date End Date Status HYDROcodone-acetaminoph Take 1 tablet by 30 tablet 0 3 Active en (NORCO) 5-325 mg mouth every 6 tabletIndications: hours as needed Caries for Pain. HYDROcodone-acetaminoph Take 1 tablet by 30 tablet 0 3 Active en (NORCO) 10-325 mg mouth every 6 tabletIndications: hours as needed Periapical abscess for Pain. pantoprazole (PROTONIX) Take 20 mg by 0 Active 20 mg delayed release mouth daily. tablet Active Problems Problem Noted Date Periapical abscess 09/04/2013 Facial swelling 09/04/2013 Chest pain 09/04/2013 Tooth decayed Social History Tobacco Use Types Packs/Day Years Used Date Never Smoker Alcohol Use Drinks/Week oz/Week Comments Yes social (beer, wi ne) Sex Assigned at Date Recorded Not on file Job Start Date Occupation Industry Not on file Not on file Not on file Travel History Travel Start Travel End No recent travel history available. Last Filed Vital Signs Not on file Plan of Treatment Health Maintenance Due Date Last Done Comments HPV Cervical Cancer Scrn 2004 Pap Cervical Cancer Scrn 2004 Breast Cancer Scrn (Yearly) 2014 IMM Influenza Seasonal Aug to January (>/= 19 yrs) 08/15/2020 Results Not on fileafter 10/24/2019 Insurance Payer Benefit Plan / Subscriber ID Effective Phone Address T [employer] Dates THEODORE JAIMES xxxxxxxxx 2016-Prese [phone] [address] [facility] [place] [address] [id number] [place] [address] [place] [employer] [id number] TANF SARAVIA xxxxxxxxx 2013-Pres [phone] [address] [place] [address] Advance Directives Code Status Date Activated Date Inactivated Comments Full Code 09/04/2013 10:33 PM 09/05/2013 7:10 PM
--- OUTSIDE RECORDS SUMMARY | 2020-10-24 06:51 | XMS REPORT | Summary of Care ---
:1975 Author Organization [facility] Address [address] [place] [id number] Care Team Providers Name Role Phone Pcp, Does Not Have A Primary Care Provider Reason for Referral (Routine) Status Reason Specialty Diagnoses / Referred By Referred To Procedures Contact Contact New Request Case Management Procedures Darren Chun MD CONSULT/REFERRAL [address] [facility] [address] [place] [address] (Routine) Status Reason Specialty Diagnoses / Referred By Referred To Procedures Contact Contact New Request CRS-COLON & RECTAL Diagnoses SBO (small bowel obstruction) Darren Chun MD SURGERY / Procedures Discharge Follow-Up: Specialty Service CRS-COLON & RECTAL SURGERY; 1 Week [address] [facility] [address] [place] [address] Radiology Services (STAT) Status Reason Specialty Diagnoses / Referred By Referred To Procedures Contact Contact New Request Diagnostic Diagnoses SBO (small bowel obstruction) Daquan Hayes, Radiology Procedures XR CHAYOB [address] [place] [address] Radiology Services (STAT) Status Reason Specialty Diagnoses / Referred By Referred To Procedures Contact Contact New Request Diagnostic Diagnoses Small bowel obstruction [place], Radiology Procedures XR ABDOMEN 1 VW Farooq Escoto MD [address] BEDS AT THE [facility] [id number] [place] [address] MRI/CAT Scan (STAT) Status Reason Specialty Diagnoses / Referred By Referred To Procedures Contact Contact New Request Diagnostic Diagnoses Abdominal pain, unspecified abdominal location Terrence Negro Radiology Procedures CT ABDOMEN PELVIS W CONTRAST MD Naun [address] COUNTS INCLUDE 234 BEDS AT THE [facility] [id number] [place] [address] Reason for Visit Reason Comments Abdominal Pain Vomiting Auth/Cert Status Reason Specialty Diagnoses / Referred By Referred To Procedures Contact Contact Emergency Medicine [facility] Em ergency Dept [address] [place] [address] Fax: Encounter Details Date Type Department Care Team Description 07/23/2020 - Hospital Encounter Surgery (TINA 9C) Terrence Negro MD [address] COUNT[address] IN[address] BEDS AT THE [facility] [id number] [place], [place] [id number] SBO (small bowel 08/01/2020 712 [facility] Shayla Munoz MD [address] COUNT[address] INCLUDE 234 BEDS AT THE [facility] [id number] [place], [place] [id number] obstruction) [place] [address] Farooq Zepeda MD [address] COUNTS INCLUDE 234 BEDS AT THE [facility] [address] [place], [place] [address] [phone] Darren Chun MD 22[address] [facility] [address] [place], [place] [address] Allergies Active Allergy Reactions Severity Noted Date Comments Dicyclomine Hives, Swelling 01/25/2016 Caffeine Hives, Swelling 01/25/2016 Fentanyl Hcl Hives 01/04/2018 Morphine Itching Low 03/24/2016 Reports she tolerates Morph ine with benadryl Metoclopramide Hcl Itching 10/02/2011 Sulfa (Sulfonamide Nausea and/or 10/02/2011 Antibiotics) Vomiting Pentazocine Lactate Hives, Swelling 01/25/2016 Ketorolac Tromethamine Hives 01/25/2016 Tramadol Itching, Swelling 07/30/2020 Ondansetron Hcl (Pf) Itching 10/02/2011 documented as of this encounter (statuses as of 08/01/2020) Medications Medication Sig Dispensed Refills Start Date End Date Status ALPRAZolam (XANAX) Take 2 mg by 0 Active 2 mg tablet mouth 2 (two) times daily. dextroamphetamine-a Take 30 mg by 0 Active mphetamine mouth 2 (two) (ADDERALL) 30 mg times daily. tablet Pantoprazole Take 40 mg by 0 Act pasha (PROTONIX) 40 mg mouth 2 (two) delayed-release times daily. suspension proMETHazine 25 mg Take 1 tablet 12 tablet 0 08/18/2019 Active tabletIndications: by mouth every Generalized 6 (six) hours abdominal pain as needed for Nausea and Vomiting (N/V). metoprolol tartrate Take 1 tablet 60 tablet 0 08/24/2019 Active 25 mg by mouth 2 tabletIndications: (two) times Tachycardia daily. HYDROmorphone 2 mg Take 1 tablet 15 tablet 0 08/01/2020 Active tabletIndications: by mouth every 0 acute pain 6 (six) hours as needed for Pain (scale 7-10) for up to 7 days. Indications: acute pain acetaminophen 325 Take 2 tablets 50 tablet 1 08/01/2020 Active mg by mouth every 1 tabletIndications: 6 (six) hours. SBO (small bowel obstruction) ibuprofen 600 mg Take 1 tablet 40 tablet 0 08/01/2020 Active tabletIndications: by mouth every SBO (small bowel 6 (six) hours. obstruction) loperamide 2 mg Take 1 capsule 14 capsule 1 08/01/2020 Active capsuleIndications: by mouth SBO (small bowel daily. obstruction) methocarbamoL 500 Take 1 tablet 40 tablet 0 08/01/2020 Active mg by mouth 4 tabletIndications: (four) times SBO (small bowel daily. obstruction) acetaminophen-codei Take 1 tablet 20 tablet 0 08/24/201908/01 Discontinued ne (TYLENOL-CODEINE by mouth every 0 #4) 300-60 mg 4 (four) hours tabletIndications: as needed for Irritable bowel Pain. syndrome, unspecified type levoFLOXacin 750 mg Take 1 tablet 4 tablet 0 08/24/201908/01 Discontinued tabletIndications: by mouth every 0 Pneumonia of both 24 lower lobes due to (twenty-four) infectious organism hours. documented as of this encounter (statuses as of 08/01/2020) Active Problems Problem Noted Date SBO (small bowel obstruction) 07/24/2020 Crohn's disease of colon with complication 07/23/2020 Overview: Added automatically from request for [address] [id number] Sinus tachycardia 08/23/2019 Pneumonia 08/18/2019 Drug-seeking behavior 03/10/2019 Multifocal pneumonia 01/24/2018 Dehydration 01/05/2018 IBS (irritable bowel syndrome) 10/02/2011 Depression 10/02/2011 documented as of this encounter (statuses as of 08/01/2020) Social History Tobacco Use Types Packs/Day Years Used Date Current Every Day Smoker Smokeless Tobacco: Never Used Tobacco Cessation: Ready to Quit: No; Co unseling Given: Yes Comments: 2-3 cigerette/day Alcohol Use Drinks/Week oz/Week Comments No Education Answer Date Recorded What is the highest level of school you have High school [employer] 07/24/2020 completed or the highest degree you have received? Financial Resource Strain Answer Date Recorded How hard is it for you to pay for the very basics like Not h davian at all 07/24/2020 food, housing, medical care, and heating? Sex Assigned at Date Recorded Not on file COVID-19 Exposure Response Date Recorded In the last month, have you been in contact with No / Unsure 07/24/2020 12:48 AM CDT someone who was confirmed or suspected to have Coronavirus / COVID-19? documented as of this encounter Last Filed Vital Signs Vital Sign Reading Time Taken Comments Blood Pressure 126/76 08/01/2020 8:03 AM CDT Pulse 119 08/01/2020 8:03 AM CDT Temperature 36.7 C (98 F) 08/01/2020 8:03 AM CDT Respiratory Rate 16 08/01/2020 8:03 AM CDT Oxygen Saturation 99% 08/01/2020 8:03 AM CDT Inhaled Oxygen Concentration - - Weight 70.3 kg (155 lb) 07/23/2020 11:57 AM CDT Height - - Body Mass Index 24.28 08/19/2019 4:28 PM CDT documented in this encounter Discharge Instructions AttachmentsThe following attachments cannot be sent through Care Everywhere. Abdominal Pain, Adult (Albanian)Obstruction, Large Bowel (Albanian)Pain, Acute, Uncertain Cause (Albanian)Acetaminophen tablets or caplets (Albanian)Hydromorphone tablets (Albanian)Ibuprofen tablets and capsules (Albanian)Loperamide tablets or capsules (Albanian)Methocarbamol tablets (Albanian)documented in this encounter Progress Notes Patricia Torres RN - 08/01/2020 11:49 AM CDT Care Management Discharge Disposition Note (DCDN) Interventions: Disease specific education;Intensive medication reconciliation/management;Teachback;Clear discharge plan;Follow-up appointments 03-16- Providers: Physician;Script Worker/Stone Breaker;Nurse 2- Patient Capacity Improvements: Avoidance of adverse events/readmission;Referral to Care Transition Team;Transportation arrangements Discharge Plan for ongoing care and services: Is this a new referral: Patient Choice completed for referred services: DME location: Other DME location: Durable Medical Equipment: Home Health location: Discharge location(s): Patient choice completed for referred services: Discussed with patient/patients family involved in decision making: Patient or family caregiver understands, and agrees with discharge plan. Community resources/referrals made or provided to patient: Yes Resources/Referrals: [facility] Resources Fact Sheets;[facility] Indigent Program Transportation: Private Vehicle Mental Status: Alert & Oriented to Person,Place & Time Living Arrangement: Apartment Other living arrangement: Address of living arrangement: [address] [place] [address] [address], [place] [address] Funding Resources: Self Pay Nursing informed of discharge plan: Yes Name of RN informed: ZARA Torres Expected discharge date: 08/01/2020 Time: Midday [20] Additional Information: Patient plans to dc home with her spouse, Taj ([phone]) for support. Resources provided for [facility] as patient lives between the 2 addresses. Indigenthealthcare applications provided for [place] and [facility]. CHP referral made for follow up of f unding applications. Ostomy education and resources provided to patient for ostomy care. CM/SW Name & Contact number: Patricia Torres RN Ph. [phone] The following information has been provided to the facility noted above: reason for the patient discharge or transfer; patients physical and psychosocial status; summary of care, treatment, servicesprovided to patient; and the patient progress toward goals. Deepika Smith RN - 08/01/2020 10:06 AM SHILAWOCN Note Follow up for pouching practice and discharge. Pt appears angry on presentation, verbalizing anger and frustration regarding her impending discharge and feeling rushed. Pt however agreeable to do an independent pouch change. Pt reports she has been emptying her own pouch for the last few days. Had patient do an independent pouch change this morning, she did well. Reviewed dietary, fluid and electrolyte and dehydration management. Pt was able to teach back above principles. Again, wocn went over the product assistance information and encouraged patient to contact [employer] right away for application. Starter supplies at bedside, 2 boxes with 1 biopsy of toño rings. Pt ready for discharge from enterostomal therapy perspective. May need outpatient social work to follow up for resources. Deepika Anthony RN 08/01/2020 10:13 AM Patricia Albrecht RN - 08/01/2020 9:00 AM CDTCare Coordinator Update: CM spoke with patient at the bedside regarding discharge planning. Patient reports that she will be discharging home to her spouse, Amanda ([phone]), house at [address] [place] [address], [place] [address]. Patient verbalized that she will be completing [facility] application and submitting upon discharge. CM reviewed the application with patient and locations for submitting completed application and supporting documentation to. Patient verbalized understanding and importance offollow up care. Patient reports that she is looking for transportation home at this time. CM will follow up with patient on whether she was able to find ride. Update @ 1150: CM spoke with patient regarding transportation home. Patient reports that she is still looking for aride. CM left taxi ([employer] [phone]) voucher ([id number]) in chart in case patient is unable to find transportation home. Bedside nurse notified. Patricia Torres RN, MSN Occasional Babysitter [email or web address] (o) [phone] Patricia Banks RN - 07/31/2020 10:10 AM CDTCare Coordinator Update: CM met with patient at the bedside to discuss discharge planning and support at home. Patient reports that she lives between her mother's house in [place] and her 's house in [place]. 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 Patient is not sure what the address is though. CM inquired if the address in [place] is in [facility], patient unsure. CM will provide patient with [facility] indigent health application and assist patient in completion once more awake. CM inquired into patient support system at home. Patient states that her mother is 79 years old and will be unable to provide physical support to patient. Patient's daughter, Julianna, works and livesin [place] and is unable to assist with patient care needs. Patient's spouse, Taj, lives [place] is [place] working. CM inquired if he would be able to help patient once discharged, and patient stated that she would rather go home to her mother's house in [place]. CM informed patient that she will likely need support at home once she is discharged and if that means that her is the only one who is physically able to provide support then she should discharge to the house in [place]. Patient did not respond. During the conversation patient began to become increasingly drowsy anddifficult to get to answer questions. CM, again, encouraged patient to speak with [employer] when they come or call to screen her for disability/ medicaid/ SSI, as patient will need funding support for management of her chronic conditions. Patient agreed to speak with [employer] next time they came to her room. CM attempted to reach out to [employer] to arrange a time for a phone call or in person meeting with patient for screening. Left VM. Patricia Torres RN, MSN Occasional Babysitter [email or web address] (P) [phone] Roosevelt Sim MD - 07/30/2020 6:06 PM [facility] Gastroenterology and Hepatology Progress Note Date of Service: 07/30/20 Attempted to see patient, but she was in shower. Chart reviewed. PATHOLOGY 07/25/20 A. SMALL INTESTINE AND PARTIAL CECUM, ILEOCECECTOMY: - SEGMENTAL SMALL INTESTINE ISCHEMIC NECROSIS WITH TRANSMURAL INVOLVEMENT, SECONDARY TO FIBROTIC ADHESION AND SMALL BOWEL OBSTRUCTION - SEVERE VENOUS CONGESTION WITH SUBMUCOSAL AND TRANSMURAL HEMORRHAGE - NO EVIDENCE OF ACTIVE CROHN'S DISEASE - SURGICAL MARGINS ARE VIABLE - NO MALIGNANCY IDENTIFIED - APPENDIX WITH SEROSITIS ASSESSMENT/PLAN Jessica Farah is a 44 year old year old female with PMH of suspected Crohn's disease, admitted to the hospital with abdominal pain, GI consulted for: Reported Crohn's Disease Small Bowel Obstruction s/p Ileocecectomy Rectal Blood Clots Background: Type of IBD: ?Crohns Duration:15 years Extent:unclear Therapies tried:steroids, humira (last dose 5 years ago?) Surgeries:45 cm of small bowel resected (07/25/20) Extra- intestinal manifestations/complications:none Severity:mild Smoker:yes 1-2 cigarettes Immunization:unclear history Assessment: Patient with reported Crohn's disease and has not been treated with any immunosuppressant medications in years.She presented with severe pain and now status post open ileocectomy donewith small bowel resection (45 cm), end ileostomy, and creation of mucous fistula.On 07/29/20 she was noted to have rectal blood clots and surgery felt this was most likely related to her suture line. Pathology shows no evidence of active Crohn's disease Recommendations: - please obtain records from prior workup indicating documented Crohn's disease; appears last GI doctor was Dr. Maynor rust at this time - pathology results reviewed and noted. We will review pathology results and lack of active Crohn's disease in our case conference Patient was discussed with Dr. Lugo. GI will continue to follow along. Please call with questions. Roosevelt Edwards MD PGY-4 Gastroenterology and Hepatology Pager [phone] Associated attestation - Huseyin Lugo MD - 07/31/2020 10:22 AM CDTI discussed the case on 07/30/[address] Edwards's note with the following addition(s): although the surgical pathology results are note definite for Crohn's disease this cannot be ruled out at this point. We need to obtain her previous colonoscopy, pathology, and clinic records from her prior asset coordinator to review in order to aid in future treatment planning. If she indeed has Crohn's disease then even in the absence of current active inflammation she will be at high-risk for needfor future surgery and would thus benefit from immunomodulator therapy. Will also review in our GIcase conference for any additional input. I actively participated in the decision- making process. Please see the fellow's note for additional details. Huseyin Lugo MD Washer Operator Division of Gastroenterology and Hepatology Pager # [phone] Doctor# [id number] Deepika Anthony RN - 07/30/2020 2:03 PM CDTWOCN Note Follow up visit for leaking issues. Pt still with watery stool and appears she has had over 2 L output last 24hours. ASSESSMENT: RLQ Ileostomy/MF 38mm diameter, red. No peristomal skin breakdown. When patient sits upthe stoma sinks with skin fold at the top of the stoma, causing the skin barrier to pull away. Switched patient to a flexible one piece pouch with adapt ring. Reviewed pouching again and dietary considerations. Pt sleepy through session. Will order supplies to room. Deepika Anthony RN 07/30/2020 2:08 PM ADDENDUM: Follow up to check pouch adherence. Pouch intact. Pt reports she has been emptying pouch today. Stool still watery. Please consider adding bulking agent, low residue diet and gatorade with meals. Will have patient change pouch tomorrow. Deepika Anthony RN 07/31/2020 2:13 PM Patricia Albrecht RN - 07/30/2020 10:30 AM CDTCare Coordinator Update: PIPER attempted to meet with patient at the bedside to discuss discharge planning. Patient was very groggy and unable to stay awake long enough to answer questions. CM brought patient a copy of the [facility] indigent healthcare application. CM will follow up with patient at 1400 to discuss indigent healthcare application and stress the importance of working with [employer] when they come to speak with her for screening of medicaid/SSi/disability. Update @ 1410: PIPER attempted to meet with patient at the bedside. Patient reports that "her bag just busted" and sheneeds the nurse. CM will inform the bedside RN and follow up with patient at a later time to discussdischarge planning. Patricia Torres RN, MSN Occasional Babysitter [email or web address] (o) [phone] Donavan Gallardo MD - 07/30/2020 7:14 AM CDT General Surgery Progress Note: Date: 07/30/2020 Pt remains hospitalized due to: post-op monitoring 24 hour Events: - Tolerating some clears and toast yesterday - Reports pain not controlled with current regimen and that oxycodone continues to cause nausea - VSS, AF Procedure(s): open ileocecectomy with creation of end ileostomy and mucus fistula POD#: 5 Physical Exam: Temp: [36.7 C (98.1 F)-37.9 C (100.3 F)] Pulse: [104-140] Resp: [16-18] BP: (134-165)/(81-93) MAP (mmHg): [92-117] Intake/Output Summary (Last 24 hours) at 07/28/2020 0647 Last data filed at 07/28/2020 0600 Gross per 24 hour Intake 1500 ml Output 2435 ml Net -935 ml UOP/Ostomy/Drains Urine: 750 Drains: 90 Ileostomy: 2100 Diet: regular Physical Exam GENERAL: No acute distress, lethargic HENT: Head: Normocephalic. Mouth: Mucous membranes are moist. Eyes: Conjunctiva/sclera: Conjunctivae normal. Pupils: Pupils are equal, round, and reactive to light. Cardiovascular: Rate and Rhythm: Normal rate and regular rhythm. Respiratory: On room air, non-labored Abdominal: Non-tender, non-distended, normoactive bowel sounds. leostomy is pink and healthy with enteric output.Serous to serosanguinous output via drain Skin: General: Skin is warm. Capillary Refill: good cap refill Labs: Recent Labs 07/25/20 1913 07/26/20 0253 07/27/20 0539 07/28/20 0515 WBC 13.55* 10.18 11.87* 8.27 HGB 10.9* 9.2* 8.4* 8.7* HCT 33.9* 27.5* 25.8* 26.0* PLT 169 144* 190 231 NA 137 136 134* -- K 4.5 3.9 3.7 -- CL 102 104 104 -- TCO2 28 28 29 -- BUN 13 11 7 -- CREAT 0.92 0.84 0.63 -- GLU 165* 136* 169* -- MG 1.5* -- -- -- CA 8.5* 8.2* 8.3* -- Cultures: none Radiology: No new results over past 24 hours Pathology: pending A/P: Jessica Farah is a 44 year old femalewith hx of Crohn's disease initially presenting forabdominal pain, distension, nausea and vomiting. CT 07/23 showed free fluid in abdomen and thickened ileum and cecum; went to OR 07/25/2020 for lap converted to open ileocecectomy with creation of end ileostomy, creation of mucus fistula and resection of 45 cm of distal ileum after adhesion noted betweensigmoid appendiceal epiploica and terminal ileum near ileocecal valve that caused volvulus and loss of blood supply. Now POD 5- doing well, though patient still reporting her pain control is suboptimal. Will alter regimen today. -PO pain meds: Tylenol, ibuprofen, robaxin. PRN dilaudid. Discontinue oxycodone -Continue IS -Out of bed, ambulate -ostomy care on board - Imodium for high ileostomy output - Regular diet as tolerated - Monitor hemodynamics - Monitor I/Os DVT Prophylaxis: SCD's and Prophylactic LMWH Donavan Kirk MD PGY 2 General Surgery [phone] 07/30/2020 Associated attestation - Darren Chun MD - 07/31/2020 12:19 PM CDTATTESTATION: I agree with the resident's note as written. I actively participated in the decision making process.Please see the resident's note for additional details. Ms. Farah is doing well. Drain removed during rounds. Plan to monitor I/Os and PO intake. Tentative DC tomorrow. Darren Chun MD MS Colon and Rectal SurgeryJohn, Roosevelt Carranza MD - 07/29/2020 6:40 PM CDT Gastroenterology and Hepatology Progress Note Date of Service: 07/29/2020 18:40 Chief Complaint: abdominal pain SUBJECTIVE/ MAJOR EVENTS: Patient with some noted events of blood per rectum documented early this AM. She apparently had one further episode in the daytime. She has no complaints to us, and seems to be comfortable in her bed. ROS: Constitutional: No weakness HEENT: No dry mouth CV: No chest pain Resp: No shortness of breath GI: no abdominal pain PHYSICAL EXAM: Temp: [36.7 C (98.1 F)-37.9 C (100.3 F)] Pulse: [104-132] Resp: [16-20] BP: (129-165)/(75-93) MAP (mmHg): [89-117] Intake/Output Summary (Last 24 hours) at 07/29/2020 1840 Last data filed at 07/29/2020 1600 Gross per 24 hour Intake Output 4310 ml Net -4310 ml General: Patient is alert and oriented x4, No apparent distress. Cardiovascular: Regular rate and rhythm, no murmurs; no LE edema. Respiratory: Clear to auscultation bilaterally. Abdomen: Nondistended, surgical scars, inverted umbilicus, soft, no tenderness, no masses, normal bowel sounds. LABS/IMAGING - REVIEWED CURRENT MEDICATIONS - REVIEWED ASSESSMENT/PLAN Jessica Farah is a 44 year old female with PMH as listed above, GI consulted for: Crohn's Disease Small Bowel Obstruction s/p Ileocecectomy Rectal Blood Clots Background: Type of IBD: ?Crohns Duration:15 years Extent:unclear Therapies tried:steroids, humira (last dose 5 years ago?) Surgeries:45 cm of small bowel resected (07/25/20) Extra- intestinal manifestations/complications:none Severity:mild Smoker:yes 1-2 cigarettes Immunization:unclear history Assessment: Patient has likely Crohn's disease and has not been treated with any immunosuppressant medications in years. She now presents here in severe pain and appears very much in significant amount of pain. She is now status post open ileocectomy done with small bowel resection (45 cm), end ileostomy, and creation of mucous fistula. On 07/29/20 she was noted to have rectal blood clots and surgery felt this was most likely related to her suture line. Recommendations: - please obtain records from prior workup indicating documented Crohn's disease; appears last GI doctor was Dr. Mcguire - no role for steroids at this time - follow up pathology reports - consult SW to help assist in transition of care for follow-up - rectal blood clots noted, and appreciate surgery evaluation Patient was seen and discussed with Dr. Lugo. Please call with questions. GI will continue to follow. Roosevelt Edwards MD PGY-4 Gastroenterology and Hepatology Pager [phone] Associated attestation - Huseyin Lugo MD - 07/31/2020 10:17 AM CDTI personally examined the patient on 07/29/[address] Edwards's note as written . I actively participated in the decision-making process. Please see the fellow's note for additional details. Huseyin Lugo MD Washer Operator Division of Gastroenterology and Hepatology Pager # [phone] Doctor# [id number] Patricia Torres RN - 07/29/2020 9:47 AM CDTCare Management Continued Stay Assessment LOS Day: 5 Estimated /Planned Discharge Date: 07/31/2020 SURGEN female 44 year old Date CM/SW last Face to Face completed with patient/family: 07/29/2020 Funding source: No coverage found. PCP:PATIENT DOES NOT HAVE A PCP Patient/Family/MPOA/Caregiver Engaged with Transitional Care Plan: yes Patient/Family/MPOA/Caregiver concurs with proposed discharge plan: yes Name, Relationship to Patient and contact number of individual acting on behalf of the patient: patient Chief Complaint/Admitting Dx:Bowel Obstruction Hospital Problems: SBO (small bowel obstruction) Crohn's disease of colon with complication Summary of hospital course: per chart, "Jessica Farah is a 44 year old femalewith hx of Crohn's disease initially presenting for abdominal pain, distension, nausea and vomiting. CT 07/23 showed free fluid in abdomen and thickened ileum and cecum; went to OR 07/25/2020 for lap converted to open ileocecectomy with creation of end ileostomy, creation of mucus fistula and resection of 45 cm of distal ileum after adhesion noted between sigmoid appendiceal epiploica and terminal ileum near ileocecal valve that caused volvulus and loss of blood supply. Now POD4- NG removed overnight. Will trial CLD today. Continue to monitor ileostomy output." CM/SW Interventions/Resources provided: SFA completed; patient lives at home with her spouse, Taj ([phone]). Patient daughter, Constantino to provide transportation home at discharge. Referral placed to vendor for screening, CM stressed importance for patient to establish some funding source for management of chronic condition. Ostomy nurse has seen patient and provided ostomy supply instructions and assistance program information. CM/SW Interventions/Resources still needed: pending further medical recomendations Anticipated Discharge Destination: Home If DC to home, who will support patient: patient motherUziel ([phone]) and daughter, Constantino. Anticipated DME needs: Ostomy supplies (provided information from ostomy nurse on assistance programs) Referrals sent: not applicable If no, why/when will referral be sent:: n/a Has patient been accepted: not applicable Revised plan if not accepted: n/a What is the clinical care happening right now that must be done in the hospital and only the hospital: POD #4 s/p end ileostomy creation, ostomy nurse consult and education, CLD trial-advance as tolerated, pain mgmt. Please addend note following Length of Stay rounds and complete section below Were any recommendations made during LOS rounds on this patient:not applicable If yes, what new recommendations were made at LOS: n/a Patricia Torres RN, MSN Occasional Babysitter [email or web address] (O) [phone] Judy Flores MD - 07/29/2020 4:35 AM CDTGENERAL SURGERY BRIEF UPDATE NOTE Jessica Farah is a 44 year old female POD 4 s/p ileocecectomy, additional small bowel resection, and end ileostomy with mucous fistula creation. Called to the bedside for brbpr with clots and abdominal pain. On my examination, she was appropriately tender around her incision. No evidence of peritonitis or acute changes in her abdominal pain. She states that it feels similar as prior however she states that she has had a change in her pain medic ine and she feels that is why. She states that mainly the dilaudid is what works for her with pain control. Vital signs taken and she was found to be tachy to 111, unchanged and normotensive. Stool per rectumin bedside commode was dark and filled with clots. Likely from the staple line from the operation. Ileostomy still productive with bilious output. Plan: -STAT Hemogram and coags -KUB -Nurse to change out ostomy bag -Reordered Robaxin and IV Tylenol -Will speak with day team about admin of dilaudid Judy Flores MD General Surgery, PGY-5 Roosevelt Edwards MD - 07/28/2020 7:12 PM CDT Gastroenterology and Hepatology Progress Note Date of Service: 07/28/2020 19:13 Chief Complaint: abdominal pain SUBJECTIVE/ MAJOR EVENTS: Patient was crying when I first saw her due to pain from moving around. Later in the day we saw on rounds she looked to be in better control. She has not been changing her colostomy bag herself yet, RNstaff has been helping. ROS: Constitutional: No weakness HEENT: No dry mouth CV: No chest pain Resp: No shortness of breath GI: abdominal pain PHYSICAL EXAM: Temp: [35.9 C (96.7 F)-37.2 C (98.9 F)] Pulse: [87-105] Resp: [16] BP: (114-140)/(73-87) MAP (mmHg): [87-104] Intake/Output Summary (Last 24 hours) at 07/28/2020 191 Last data filed at 07/28/2020 1200 Gross per 24 hour Intake 1500 ml Output 3225 ml Net -1725 ml General: Patient is alert and oriented x4, No apparent distress. Cardiovascular: Regular rate and rhythm, no murmurs; no LE edema. Respiratory: Clear to auscultation bilaterally. Abdomen: Nondistended, surgical scars, has ileostomy, inverted umbilicus, soft, tenderness, no masses, normal bowel sounds. LABS/IMAGING - REVIEWED CURRENT MEDICATIONS - REVIEWED ASSESSMENT/PLAN Jessica Farah is a 44 year old female with PMH as listed above, GI consulted for: Concern for Crohn's Flare Possible Small Bowel Obstruction Background: Type of IBD: ?Crohns Duration:15 years Extent:unclear Therapies tried:steroids, humira (last dose 5 years ago?) Surgeries:45 cm of small bowel resected (07/25/20) Extra- intestinal manifestations/complications:none Severity:mild Smoker:yes 1-2 cigarettes Immunization:unclear history Assessment: Patient has a questionable diagnosis of Crohn's disease and has not been treated with any immunosuppressant medications in years. She now presents here in severe pain and appears very much in significant amount of pain. She is now status post open ileocectomy done with small bowel resection (45 cm), end ileostomy, and creation of mucous fistula. Recommendations: - please obtain records from prior workup indicating documented Crohn's disease; appears last GI doctor was Dr. Mcguire - no role for steroids at this time - follow up pathology reports - consult SW to help assist in transition of care for follow-up Patient was seen and discussed with Dr. Lugo. Please call with questions. GI will continue to follow. Roosevelt Edwards MD PGY-4 Gastroenterology and Hepatology Pager [phone] Associated attestation - Huseyin Lugo MD - 07/28/2020 7:31 PM CDTI personally examined the patient on 07/28/[address] Edwards's note as written . I actively participated in the decision-making process. Please see the fellow's note for additional details. Huseyin Lugo MD Washer Operator Division of Gastroenterology and Hepatology Pager # [phone] Doctor# [id number] Donavan Kirk MD - 07/28/2020 6:46 AM CDT General Surgery Progress Note: Date: 07/28/2020 Pt remains hospitalized due to: post-op monitoring 24 hour Events: -NAEON -Patient urinating and ambulating well since Frazier removal yesterday -Pain controlled with morphine TERRAZZO LAYER HELPER pump Procedure(s): open ileocecectomy with creation of end ileostomy and mucus fistula POD#: 3 Physical Exam: Temp: [36.6 C (97.8 F)-37.1 C (98.7 F)] Pulse: [82-102] Resp: [16] BP: (109-133)/(73-87) MAP (mmHg): [86-102] Intake/Output Summary (Last 24 hours) at 07/28/2020 0647 Last data filed at 07/28/2020 0600 Gross per 24 hour Intake 1500 ml Output 2435 ml Net -935 ml UOP/Ostomy/Drains Urine: 1400 (1200 ml overnight) Drains: 220 (45 ml overnight) Ileostomy: 120 (100 ml overnight) NGT: 400 ml overnight Diet: npo except ice chips Physical Exam GENERAL: No acute distress, lethargic HENT: Head: Normocephalic. Mouth: Mucous membranes are moist. Eyes: Conjunctiva/sclera: Conjunctivae normal. Pupils: Pupils are equal, round, and reactive to light. Cardiovascular: Rate and Rhythm: Normal rate and regular rhythm. Respiratory: On room air, non-labored Abdominal: Non-tender, non-distended, normoactive bowel sounds. leostomy is pink and healthy with enteric output.Serous to serosanguinous output via drain Skin: General: Skin is warm. Capillary Refill: good cap refill Labs: Recent Labs 07/25/20 1913 07/26/20 0253 07/27/20 0539 07/28/20 0515 WBC 13.55* 10.18 11.87* 8.27 HGB 10.9* 9.2* 8.4* 8.7* HCT 33.9* 27.5* 25.8* 26.0* PLT 169 144* 190 231 NA 137 136 134* -- K 4.5 3.9 3.7 -- CL 102 104 104 -- TCO2 28 28 29 -- BUN 13 11 7 -- CREAT 0.92 0.84 0.63 -- GLU 165* 136* 169* -- MG 1.5* -- -- -- CA 8.5* 8.2* 8.3* -- Cultures: none Radiology: No new results over past 24 hours Pathology: pending A/P: Jessica Farah is a 44 year old femalewith hx of Crohn's disease initially presenting forabdominal pain, distension, nausea and vomiting. CT 07/23 showed free fluid in abdomen and thickened ileum and cecum; went to OR 07/25/2020 for lap converted to open ileocecectomy with creation of end ileostomy, creation of mucus fistula and resection of 45 cm of distal ileum after adhesion noted betweensigmoid appendiceal epiploica and terminal ileum near ileocecal valve that caused volvulus and loss of blood supply. Now POD 3, pain controlled, with NGT in place. Awaiting return of bowel function. -continue pain regimen with TERRAZZO LAYER HELPER. Add on robaxin today and continue IV Tylenol. Will try to minimize narcotics as tolerated -continue IS -ostomy care on board, patient will practice pouch management over weekend -NPO except ice chips -continue NGT -continue MIVF DVT Prophylaxis: SCD's and Prophylactic LMWH Antonia Jaime, MS4 I personally examined the patient on 07/28/2020 and have verified the medical student documentation and/or findings, including the history, physical exam, and medical decision making. Additionally, I have personally performed or re- performed the physical exam and medical decision making activities of this patient's evaluation and management service. Donavan Kirk MD PGY 2 General Surgery [phone] 07/28/2020 Associated attestation - Davi Avilez MD - 07/28/2020 11:45 AM CDTI personally examined the patient on 07/28/[address] Kirk's resident note as written. I actively participated in the decision-making process. Please see the resident's note for additional details. Donavan Krik MD - 07/27/2020 7:29 AM CDT General Surgery Progress Note: Date: 07/27/2020 Pt remains hospitalized due to: postoperative monitoring 24 hour Events: -No acute events overnight -Pain controlled with morphine TERRAZZO LAYER HELPER pump Procedure(s): Open ileocecectomy with creation of end ileostomy and mucus fistula POD#: 2 Physical Exam: Temp: [36.1 C (96.9 F)-36.8 C (98.2 F)] Pulse: [58-114] Resp: [16-20] BP: (107-136)/(67-91) MAP (mmHg): [78-105] Intake/Output Summary (Last 24 hours) at 07/27/2020 0730 Last data filed at 07/27/2020 0643 Gross per 24 hour Intake 2287 ml Output 3075 ml Net -788 ml UOP/Ostomy/Drains Frazier: 2400 (800 overnight) Drain: 300 (150 overnight) Ileostomy: 175 (100 overnight) NGT:400 over last 24 hours Diet: NPO except ice chips Physical Exam GENERAL: No acute distress, lethargic HENT: Head: Normocephalic. Mouth: Mucous membranes are moist. Nose: NGT in place, draining clear to turbid greenish fluid Eyes: Conjunctiva/sclera: Conjunctivae normal. Pupils: Pupils are equal, round, and reactive to light. Cardiovascular: Rate and Rhythm: Normal rate and regular rhythm. Respiratory: On room air, non-labored Abdominal: Non-tender, non-distended. Ileostomy is pink and healthy with enteric output. Serous to serosanguineous output via drain. Skin: General: Skin is warm. Capillary Refill: good cap refill Labs: Recent Labs 07/25/20 0635 07/25/20 1913 07/26/20 0253 07/27/20 0539 WBC 18.86* 13.55* 10.18 11.87* HGB 12.0 10.9* 9.2* 8.4* HCT 35.6* 33.9* 27.5* 25.8* PLT 210 169 144* 190 NA 137 137 136 134* K 4.0 4.5 3.9 3.7 CL 104 102 104 104 TCO2 28 28 28 29 BUN 13 13 11 7 CREAT 0.79 0.92 0.84 0.63 GLU 207* 165* 136* 169* MG -- 1.5* -- -- CA 8.5* 8.5* 8.2* 8.3* Cultures: none Radiology: No new results over past 24 hours Pathology: pending A/P: Jessica Farah is a 44 year old female with hx of Crohn's disease initially presenting for abdominal pain, distension, nausea and vomiting. CT 07/23 showed free fluid in abdomen and thickened ileum and cecum; went to OR 07/25/2020 for lap converted to open ileocecectomy with creation of end ileos deb, creation of mucus fistula and resection of 45 cm of distal ileum after adhesion noted between sigmoid appendiceal epiploica and terminal ileum near ileocecal valve that caused volvulus and loss of blood supply. Now POD 2, pain controlled, with NGT in place. -continue pain regimen -continue IS -ostomy care on board, patient will practice pouch management over weekend -NPO except ice chips -continue NGT -discontinue frazier DVT Prophylaxis: SCD's and Prophylactic LMWH Khurram C Andujar MS-IV I personally examined the patient on 07/27/20 and have verified the medical student documentation and/or findings, including the history, physical exam, and medical decision making. Additionally, I havepersonally performed or re- performed the physical exam and medical decision making activities of this patient's evaluation and management service. Donavan Kirk MD PGY 2 General Surgery [phone] 07/27/2020 Associated attestation - Davi Avilez MD - 07/27/2020 12:52 PM CDTI personally examined the patient on 07/27/[address] Kirk's resident note as written . Iactively participated in the decision-making process. Please see the resident's note for additionaldetails. Roosevelt Edwards MD - 07/26/2020 4:57 PM CDT Gastroenterology and Hepatology Progress Note Date of Service: 07/26/2020 16:57 Chief Complaint: abdominal pain SUBJECTIVE/ MAJOR EVENTS: Patient feeling much better post-operatively and grateful for her care. She appreciates teamwork of all care givers. Had ileocecectomy yetserday with ostomy placement. ROS: Constitutional: No weakness HEENT: No dry mouth CV: No chest pain Resp: No shortness of breath GI: abdominal pain PHYSICAL EXAM: Temp: [36.1 C (96.9 F)-37.1 C (98.8 F)] Heart Rate (monitor): [123-137] Pulse: [98-137] Resp: [9-32] BP: (107-149)/(65-104) MAP (mmHg): [77-119] Intake/Output Summary (Last 24 hours) at 07/26/2020 1657 Last data filed at 07/26/2020 1531 Gross per 24 hour Intake 3203 ml Output 3332 ml Net -129 ml General: Patient is alert and oriented x4, No apparent distress. Cardiovascular: Regular rate and rhythm, no murmurs; no LE edema. Respiratory: Clear to auscultation bilaterally. Abdomen: Nondistended, no surgical scars, inverted umbilicus, soft, no tenderness, no masses, normalbowel sounds. LABS/IMAGING - REVIEWED CURRENT MEDICATIONS - REVIEWED ASSESSMENT/PLAN Jessica Farah is a 44 year old female with PMH as listed above, GI consulted for: Concern for Crohn's Flare Possible Small Bowel Obstruction Background: Type of IBD: ?Crohns Duration:15 years Extent:unclear Therapies tried:steroids, humira (last dose 5 years ago?) Surgeries:2 c-sections, 1 hysterectomy no bowel resections Extra- intestinal manifestations/complications:none Severity:mild Smoker:yes 1-2 cigarettes Immunization:unclear history Assessment: Patient has a questionable diagnosis of Crohn's disease and has not been treated with any immunosuppressant medications in years. She states her diagnosing GI doctor and her most recent GI doctor were in disagreement regarding whether she had Crohn's disease. Nonetheless, she now presents here in severe pain and appears very much in significant amount of pain. Had ileocectomy done, after distal ileumwas found to be necrotic. Recommendations: - please obtain records from prior workup indicating documented Crohn's disease; appears last GI doctor was Dr. Mcguire - order ESR/CRP - no steroids at this time - follow up pathology reports - consult SW to help assist in transition of care for follow-up We will follow peripherally over the weekend, call with questions Patient was seen and discussed with Dr. Munoz. Roosevelt Edwards MD PGY-4 Gastroenterology and Hepatology Pager [phone] Associated attestation - Wilberto Munoz MD - 07/26/2020 6:35 PM CDTI personally examined the patient on 07/26/[address] Edwards's note as written. I actively participated in the decision-making process. Please see the fellow's note for additional details. Akshat Tuttle MD - 07/26/2020 8:25 AM CDT General Surgery Progress Note: Date: 07/26/2020 Pt remains hospitalized due to: postoperative monitoring 24 hour Events: NAEON On morphine TERRAZZO LAYER HELPER pump- pain controlled Procedure(s): Open ileocecectomy with creation of end ileostomy and mucus fistula POD#: 1 Physical Exam: Temp: [36.2 C (97.1 F)-37.1 C (98.8 F)] Heart Rate (monitor): [123-137] Pulse: [98-137] Resp: [9-32] BP: (107-167)/(65-104) MAP (mmHg): [77-121] Intake/Output Summary (Last 24 hours) at 07/26/2020 0826 Last data filed at 07/26/2020 0600 Gross per 24 hour Intake 3550 ml Output 1812 ml Net 1738 ml UOP/Ostomy/Drains Frazier: 625 (500 overnight) Drain: 170 (120 overnight) Ileostomy: 0 NGT: 500 (300 overnight) Diet: NPO except ice chips Physical Exam GENERAL: No acute distress, lethargic HENT: Head: Normocephalic. Mouth: Mucous membranes are moist. Nose: NGT in place draining greenish substance Eyes: Conjunctiva/sclera: Conjunctivae normal. Pupils: Pupils are equal, round, and reactive to light. Cardiovascular: Rate and Rhythm: Normal rate and regular rhythm. Respiratory: On RA, non-labored Abdominal: Non-tender, non-distended, normoactive bowel sounds. lleostomy is pink and healthy with enteric output. Serosanguineous output via drain. Skin: General: Skin is warm. Capillary Refill: good cap refill Labs: Recent Labs 07/23/20 1431 07/24/20 0234 07/25/20 0635 07/25/20 1913 07/26/20 0253 WBC 14.04* 14.33* 18.86* 13.55* 10.18 HGB 17.1* 15.1* 12.0 10.9* 9.2* HCT 49.7* 44.2 35.6* 33.9* 27.5* PLT 339 277 210 169 144* NA 137 137 137 137 136 K 3.3* 4.1 4.0 4.5 3.9 CL 97* 102 104 102 104 TCO2 25 24 28 28 28 BUN 18 19 13 13 11 CREAT 0.94 0.93 0.79 0.92 0.84 GLU 236* 170* 207* 165* 136* MG -- -- -- 1.5* -- CA 10.4 8.9 8.5* 8.5* 8.2* Cultures: none Radiology: No new radiology Pathology: pending A/P: Jessica Farah is a 44 year old female with hx of Crohn's disease initially presenting for abdominal pain, distension, nausea and vomiting. CT 07/23 showed free fluid in abdomen and thickened ileum and cecum; went to OR 07/25/2020 for lap converted to open ileocecectomy with creation of end ileos deb, creation of mucus fistula and resection of 45 cm of distal ileum after adhesion noted between sigmoid appendiceal epiploica and terminal ileum near ileocecal valve that caused volvulus and loss of blood supply. Now POD 1, pain controlled, on TERRAZZO LAYER HELPER pump with NGT in place. -continue pain regimen, will try to wean from morphine TERRAZZO LAYER HELPER pump if can tolerate -continue IS -ostomy care on board -NPO except ice chips -continue NGT DVT Prophylaxis: Prophylactic LMWH, SCD Akshat Tuttle MD PGY-1 Urology Associated attestation - Darren Chun MD - 07/26/2020 10:07 AM CDTATTESTATION: I agree with the resident's note as written. I actively participated in the decision making process.Please see the resident's note for additional details. Convert home meds to scheduled versions via IV where possible. NPO with NGT, await return of bowel function. MUKUND frazier when ambulating well. Consult stoma RN. Ambulate with assistance TID. Darren Chun MD MS Colon and Rectal SurgeryStacey Fuentes DO - 07/25/2020 10:58 PM CDTS: Abdominal pain controlled by medication. NGT in place. NAEO O: BP 133/80 (BP Location: Right arm, Patient Position: Supine) | Pulse 129 | Temp 37.1 C (98.8 F) (Oral) | Resp 18 | Wt 70.3 kg (155 lb) | SpO2 95% | BMI 24.28 kg/m General: alert and oriented in mild apparent distress due to pain Neck: supple, trachea midline CV: hemodynamically stable Resp: unlabored, no increased work of breathing, equal bilateral chest rise Abd: soft, non-distended, appropriately -tender , ez drain in RLQ - serosanguineous fluid , ostomy is pink and patent. Laparotomy incision is well dressed. A/P: Patient is a 44 year-old female with a history for crohn's diseases that presented with small bowelobstruction with gangrene now POD # 0 s/p Laparoscopic converted to open ileocecectomy, Small bowel resection of distal ileum ,Creation of end ileostomy , Creation of mucous fistula. She is doing well. - Continue plans as recommended by surgery service note Rooseevlt Sim MD - 07/25/2020 4:23 PM CDT Gastroenterology and Hepatology Progress Note Date of Service: 07/25/2020 16:23 Chief Complaint: small bowel obstruction SUBJECTIVE/ MAJOR EVENTS: Patient still in pain, and inquiring when she will go for surgery. Pain somewhat improved compared to yesterday. ROS: Constitutional: No weakness HEENT: No dry mouth CV: No chest pain Resp: No shortness of breath GI: abdominal pain PHYSICAL EXAM: Temp: [36.2 C (97.1 F)-37.4 C (99.3 F)] Pulse: [122-143] Resp: [16-20] BP: (141-175)/(92-110) MAP (mmHg): [104-132] Intake/Output Summary (Last 24 hours) at 07/25/2020 1623 Last data filed at 07/25/2020 0956 Gross per 24 hour Intake 520 ml Output 200 ml Net 320 ml General: Patient is alert and oriented x4, in no respiratory distress but appears uncomfortable Cardiovascular: Regular rate and rhythm, no murmurs Respiratory: Clear to auscultation bilaterally. Abdomen: Nondistended, no surgical scars, inverted umbilicus, soft, tender to palpation, no masses, normal bowel sounds. LABS/IMAGING - REVIEWED CURRENT MEDICATIONS - REVIEWED ASSESSMENT/PLAN Jessica Farah is a 44 year old female with PMH as listed above, GI consulted for: Concern for Crohn's Flare Possible Small Bowel Obstruction Background: Type of IBD: ?Crohns Duration:15 years Extent:unclear Therapies tried:steroids, humira (last dose 5 years ago?) Surgeries: 2 c-sections, 1 hysterectomy no bowel resections Extra- intestinal manifestations/complications: none Severity:mild Smoker: yes 1-2 cigarettes Immunization: unclear history Assessment: Patient has a questionable diagnosis of Crohn's disease and has not been treated with any immunosuppressant medications in years. She states her diagnosing GI doctor and her most recent GI doctor were in disagreement regarding whether she had Crohn's disease. Nonetheless, she now presents here in severe pain and appears very much in significant amount of pain. Recommendations: - NGT and supportive measures - please obtain records from prior workup indicating documented Crohn's disease; appears last GI doctor was Dr. Mcguire - order ESR/CRP - no steroids at this time - plan for OR for cecectomy today Patient was seen and discussed with Dr. Munoz. Please call with questions. GI will continue to follow. Roosevelt Edwards MD PGY-4 Gastroenterology and Hepatology Pager [phone] Associated attestation - Wilberto Munoz MD - 07/25/2020 5:13 PM CDTI personally examined the patient on 07/25/[address] Edwards's note as written. I actively participated in the decision-making process. Please see the fellow's note for additional details. Darren Chun MD - 07/25/2020 5:53 AM CDT General Surgery Progress Note: Date: 07/25/2020 Pt remains hospitalized due to: need for surgical intervention 24 hour Events: --NAEON Procedure(s): none POD#: n/a Physical Exam: Temp: [35.9 C (96.6 F)-37 C (98.6 F)] Pulse: [122-143] Resp: [15-20] BP: (141-175)/(90-110) MAP (mmHg): [104-132] Intake/Output Summary (Last 24 hours) at 07/25/2020 0553 Last data filed at 07/24/2020 1700 Gross per 24 hour Intake 970 ml Output 100 ml Net 870 ml UOP/Ostomy/Drains N Diet: NPO, IVF Physical Exam GENERAL: No acute distress, lethargic HENT: Head: Normocephalic Nose: NG tube in place Mouth: Mucous membranes are moist. Cardiovascular: Rate and Rhythm: Normal rate and regular rhythm. Pulses: Normal pulses. Respiratory: On room air, non-labored Abdominal: non-distended, diffusely TTP with particular tenderness in RLQ Skin: General: Skin is warm. Capillary Refill: good cap refill Labs: Recent Labs 07/23/20 1431 07/24/20 0234 WBC 14.04* 14.33* HGB 17.1* 15.1* HCT 49.7* 44.2 PLT 339 277 NA 137 137 K 3.3* 4.1 CL 97* 102 TCO2 25 24 BUN 18 19 CREAT 0.94 0.93 GLU 236* 170* CA 10.4 8.9 Radiology: XR Abd 07/24 EXAM: XR ABDOMEN 1 VW 07/24/2020 1:46 AM. INDICATION: 44 years-old Female, with NGt placement COMPARISON: CT abdomen, 07/23/2020 TECHNIQUE: Frontal radiograph of the abdomen and pelvis. FINDINGS: The tip of the NGT is at the gastric fundus, with the sidehole projecting over the EG junction. Multiple dilated small bowel loops in the left upper quadrant are redemonstrated. Current Facility-Administered Medications: D5W 0.45% NaCl (1/2NS) 1 L + KCL 20 mEq, , IV Infusion, CONTINUOUS, Dc Jay MD, Last Rate: 150 mL/hr at 07/25/20 0024 enoxaparin (LOVENOX) injection 40 mg, 40 mg, Subcutaneous, Q24H, Faby Vuong MBBS metoprolol tartrate (LOPRESSOR) tablet 25 mg, 25 mg, Oral, BID, Dc Jay MD, 25 mg at 07/24/20 1946 morpHINE injection 4 mg, 4 mg, Slow IV Push, Q3HPRN, Dc Jay MD, 4 mg at 07/25/20 0424 pantoprazole (PROTONIX) 40 mg in NaCl 0.9% (NS) 100 mL MINI-BAG, 40 mg, IV Piggyback, Q12H, Faby Vuong MBBS, 40 mg at 07/24/202024 piperacillin-tazobactam (ZOSYN) 3.375 g in NaCl 0.9% (NS) 100 mL MINI-BAG, 3.375 g, IV Piggyback, Q6H ABX, Dc Jay MD, 3.375 g at 07/25/20 0137 proMETHazine (PHENERGAN) 12.5 mg in NaCl 0.9% (NS) 50 mL IV piggyback, 12.5 mg, IV Piggyback, Q4HPRN, Dc Jay MD, 12.5 mg at 07/25/20 0424 A/P: Jessica Farah is a 44 year old female with PMHx of Crohn's disease who presented as a transfer from [facility] on 07/23 with findings of partial SBO, leukocytosis 2/[address] scan 07/23. -NPO, IVF, continue NGT -consented and case requested for possible add on laparoscopic vs open ileocecectomy later today DVT Prophylaxis: Prophylactic LMWH Akshat Tuttle MD PGY-1 Urology ATTESTATION: I agree with the resident's note as written. I actively participated in the decision making process.Please see the resident's note for additional details. I saw and examined Ms. Farah. I explained lap v open ileocecectomy possible ostomy. I explained rationale for possible ostomy and expected recovery in and out of hospital. All of her questions were answered and she agrees to the plan. OR today. Darren Chun MD MS Colon and Rectal Surgery Patricia Albrecht RN - 07/24/2020 12:51 PM CDTCare Management Social Functional Assessment Patient Name: Jessica Farah Age: [age] year old Sex: female Patient's Previous Admission Date at [facility]: 08/19/2019 Current diagnosis and co-morbidities: Bowel Obstruction Readmission Questions: Was patient discharged from any acute care hospital within the last 30 days: No Social Functional Assessment: Primary language spoken/preferred: Albanian Mental Status: Alert & Oriented to Person,Place & Time Information given by: Self Patient's support system: Parent Name and number of support system: Uziel Garcia, mother ([phone]); Luis Duckworth, sister ([phone]) Primary Oriental Rug Stretcher: Self MPOA: No Living Arrangement: Home: single story Address of living arrangement : [address] [place], [place] [id number] Persons living in home: Self;Parent Names & numbers of persons living in home: Uziel Garcia, mother ([phone]) Barriers to returning home: None Baseline functional status- ambulation: Independent Functional status-baseline personal care: Independent Baseline functional status- driving: Independent Baseline functional status- grocery shopping: Independent Functional status-baseline housekeeping: Independent Functional status-baseline meal prep: Independent Current functional status same as prior: No Current functional status- ambulation: Independent Current functional status- personal care: Independent Current functional status- driving: Dependent Current functional status- grocery shopping: Requires minimal to moderate assistance Current functional status-house keeping: Requires minimal to moderate assistance Current functional status- meal preparation: Requires minimal to moderate assistance Do you have a PCP?: No Refered to: [facility] Health Care Agency: No Provider Services: No DME Company: No Equipment: None Hemodialysis: No Community resources utilized: [facility] Hairdressr Fact Sheet;[facility] Funding Resources: Self Pay Prescription coverage plan: Self Pay Pharmacy where meds are filled: Other Other [facility] Ph: Anticipated services prior to disharge: Continue Medical Eval;Consult;Lab Values;IV Antibiotic Therapy;PT/OT/ST;Reassess prior to discharge Expected mode of discharge transportation: Personal vehicle;Same as support system Additional Recommendations for DC: Patient plans to dc home with a friend, Bryant, or family, depending on who is available at dc. Additional info required for discharge planning: Pending medical evaluation Recommended discharge plan: Home SFA Complete: Social Functional Assessment complete: Yes Alcohol Use Screening (AUDIT-C) How often do you have a drink containing alcohol?: Never SCORE: 0 Did patient elect to have resources provided: No Any issues or concerns with obtaining/affording your medications at home: yes. Describe: patient has no income and will have difficulty affording medications; provided Good Rx card. Are you or your support system able to machine operator picker medications at discharge: yes, patient is able to attain medications with assistance from family Role of Care Management explained. CM met with patient at the bedside. Patient provided resources for [facility] and a Good Rx card. Referral made to vendor for screening and a CHP referral will be made for discharge to follow up on funding source and chronic disease. Patricia Torres RN, BSN Occasional Babysitter [email or web address] (o) [phone] Judy Flores MD - 07/24/2020 1:12 AM CDTSurgery Chief Note 07/23/2020 Assessment/Plan: Jessica Farah is a 44 year old female with a history of Crohn's disease, presenting with an acute flare. Not currently on any medications for the Crohn's --A/P --No acute surgical intervention at this time --Zosyn for abx, manage the acute crohn's flare and NGT placement. --Will confirm with KUB since NGT was already placed at [facility] --Consult GI for steroids and Crohn's management --EKG for sinus tachy. Pt has a known hx of this and last EKGs and Echo have been unchanged Please see full note by surgery team. Discussed with Dr. Zepeda (surgery faculty) on 07/23/2020 Judy Flores MD General Surgery, PGY-5 documented in this encounter H&P Notes Akshat Tuttle MD - 07/24/2020 5:21 PM CDTPlease see Farooq Hartman MD's consult note for full details. Associated attestation - Darren Chun MD - 07/25/2020 12:25 PM CDTATTESTATION: I agree with the resident's note as written. I actively participated in the decision making process.Please see the resident's note for additional details. Darren Chun MD MS Colon and Rectal SurgeryStacey Fuentes - 07/24/2020 1:07 AM CDT Date of Service: 07/24/2020 CHIEF COMPLAINT Abdominal pain Duration: 2 days HISTORY OF PRESENT ILLNESS Patient is a 44 year-old female with PMH significant for Crohn's disease diagnosed 14 year-old who presents as a transfer from [facility] with abdominal pain , nausea and vomiting. In this encounter She reports to have 2 days of abdominal pain that is getting worse with movement but denies any peritoneal signs. Pain is associated with non billious emesis. Her last BM was 2-3 days ago but she has been having flatus. She denies fever or chills at this time. She last saw her asset coordinator about a year ago and is currently not taking any medication. She states that she took Humira in that past but it only made her more constipated. Her last colonoscopy was about 1 year ago ALLERGIES: Allergies Allergen Reactions Bentyl [Dicyclomine] Hives and Swelling Caffeine Hives and Swelling Fentanyl Hcl Hives Reglan [Metoclopramide Hcl] Itching Sulfa (Sulfonamide Antibiotics) Nausea and/or Vomiting Talwin [Pentazocine Lactate] Hives and Swelling Toradol [Ketorolac Tromethamine] Hives Zofran [Ondansetron Hcl (Pf)] Itching Morphine Itching Reports she tolerates Morphine with benadryl MEDICATIONS: Home Medications: Medications Prior to Admission Medication Sig Dispense Refill Last Dose acetaminophen-codeine (TYLENOL-CODEINE #4) 300-60 mg tablet Take 1 tablet by mouth every 4 (four) hours as needed for Pain. 20 tablet 0 levoFLOXacin 750 mg tablet Take 1 tablet by mouth every 24 (twenty-four) hours. 4 tablet 0 metoprolol tartrate 25 mg tablet Take 1 tablet by mouth 2 (two) times daily. 60 tablet 0 proMETHazine 25 mg tablet Take 1 tablet by mouth every 6 (six) hours as needed for Nausea and Vomiting (N/V). 12 tablet 0 ALPRAZolam (XANAX) 2 mg tablet Take 2 mg by mouth 2 (two) times daily. dextroamphetamine-amphetamine (ADDERALL) 30 mg tablet Take 30 mg by mouth 2 (two) times daily. Pantoprazole (PROTONIX) 40 mg delayed-release suspension Take 40 mg by mouth 2 (two) times daily. PAST MEDICAL HISTORY: No problems updated. Past Medical History: Diagnosis Date Crohn disease IBS (irritable bowel syndrome) Past Surgical History: Procedure Laterality Date SECTION X 2 HYSTERECTOMY 2010 TUBAL LIGATION 1996 FAMILY HISTORY: No family history on file. 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 Social Needs Financial resource strain: Not hard at all Food insecurity Worry: Patient refused Inability: Patient refused Transportation needs Medical: Patient refused Non-medical: Patient refused Tobacco Use Smoking status: Current Every Day Smoker Smokeless tobacco: Never Used Tobacco comment: 2-3 cigerette/day Substance and Sexual Activity Alcohol use: No Drug use: No Sexual activity: Yes Lifestyle Physical activity Days per week: Not on file Minutes per session: Not on file Stress: Not on file Relationships Social connections Talks on phone: Not on file Gets together: Not on file Attends cheondoism service: Not on file Active member of club or organization: Not on file Attends meetings of clubs or organizations: Not on file Relationship status: Not on file Intimate partner violence Fear of current or ex partner: Not on file Emotionally abused: Not on file Physically abused: Not on file Forced sexual activity: Not on file Other Topics Concern Not on file Social History Narrative Not on file REVIEW OF SYSTEMS Eye: negative ENT: negative CV: negative Respiratory: negative GI: Abdominal pain : negative Musculoskeletal: negative Skin: negative Neuro: negative Psych: negative Endocrine: negative Hematic/lymphatic: negative Estimated Weight: 70.3 Kg PHYSICAL EXAM BP (!) 141/94 | Pulse 113 | Temp 36.6 C (97.8 F) (Oral) | Resp 13 | Wt 70.3 kg (155 lb) | SpO2 99% | BMI 24.28 kg/m General: alert and oriented x 4 ; mild apparent distress due to pian HEENT: pupils equal, round, reactive to light; extraocular movements intact; oropharynx clear; moistmucous membranes Neck: supple, no lymphadenopathy, no bruits, no JVD Lungs: clear to auscultation bilaterally Cardio: S1, S2 normal; no murmurs, rubs or gallops Abdomen: soft, tender, voluntary guarding, non peritonitic : not examined Rectal: not examined Extremities: no clubbing, cyanosis, or edema Skin: no rashes Neuro: cranial nerves II through XII grossly intact; sensation grossly intact; muscle strength 5 outof 5 in all four extremities LABORATORY RESULTS CBC BMP PT/INR WBC (10*3/L) Date Value 07/23/2020 14.04 (H) NA (mmol/L) Date Value 07/23/2020 137 No results found for: PT RBC (10*6/L) Date Value 07/23/2020 5.34 (H) K (mmol/L) Date Value 07/23/2020 3.3 (L) INR (no units) Date Value 01/25/2016 1.0 PLT (10*3/L) Date Value 07/23/2020 339 CALCIUM (mg/dL) Date Value 07/23/2020 10.4 HGB (g/dL) Date Value 07/23/2020 17.1 (H) CL (mmol/L) Date Value 07/23/2020 97 (L) aPTT HCT (%) Date Value 07/23/2020 49.7 (H) BUN (mg/dL) Date Value 07/23/2020 18 APTT Patient (Seconds) Date Value 01/25/2016 25 CREATININE (mg/dL) Date Value 07/23/2020 0.94 GLUCOSE (mg/dL) Date Value 07/23/2020 236 (H) CO2 TOTAL (mmol/L) Date Value 07/23/2020 25 X-RAY RESULTS: N/A CT ABDOMEN PELVIS W CONTRAST Narrative CT Abdomen and Pelvis with intravenous contrast. CLINICAL HISTORY: Abdominal pain. Rule out appendicitis. DOSE: Up-to-date CT equipment and radiation dose reduction techniques were employed. CTDIvol: 5.43 mGy. DLP: 257 mGy-cm. TECHNIQUE : Contiguous axial imaging from the level of the lung bases through the pubic symphysis were performed after the uncomplicated administration of Omnipaque contrast material. Coronal and sagittal reconstructions were obtained. Auto mA and/or iterative reconstruction were used to reduce radiation dose. FINDINGS: Comparison is made with 08/18/2019 study. Lower lungs: Clear. No pleural effusion or pericardial effusion. Probable short sliding hiatal hernia. Liver, Gallbladder and Spleen: No calcified gallstones. Liver is 12.4 cm and spleen is 7.5 x 2.5 cm in size. Biliary ducts and the pancreatic duct appear of normal size. Peritoneum: No free air. Free fluid noted surrounding intestines, spleen, minimal around the liver and in the cul-de-sac. Small lymph nodes are seen in the right lower quadrant of the abdomen. Pancreas and Adrenals: Unremarkable pancreas and adrenal glands. Kidneys and Ureters: No visible calculi in the renal collecting systems. No hydroureter or hydronephrosis. Vessels: Normal. Retroperitoneum: No abnormal fluid or lymphadenopathy. Bowel: Several ileal loops are dilated up to 3.5 cm with submucosal edema, congestion of the surrounding mesentery and small amount of fluid surrounding abnormal bowel loops. Some of the bowel loops proximal to the edematous ileum with distended with gas. Appendix is not visualized, however, findings are not suggestive of acute appendicitis. Bladder and Reproductive Organs: S/P hysterectomy. Grossly unremarkable unopacified and incompletely distended urinary bladder. Bones: Mild bilateral hip joint arthritis. No aggressive bone lesions. No compression deformity in the lower thoracic or lumbar vertebral bodies. Soft tissues: Unremarkable. CONCLUSION: 1. Abnormal findings involving some of the distal ileal loops, with free fluid is seen in the lower abdomen and surrounding spleen. No free intraperitoneal air. Etiology is unclear given the history of Crohn's disease but could be acute flareup of Crohn's disease. Involved loops of bowel showed poor contrast enhancement of the mucosa without any definite CT signs of bowel infarction. Possibility of small bowel obstruction cannot be excluded. 2. Appendix is not visualized, however, findings are not suggestive of acute appendicitis. INJURIES/PROBLEMS/DIAGNOSES and TREATMENT PLAN: Active Problems: Patient is a 44 year-old female with PMH of Crohn's diseases who presents as a transfer from [facility] with abdominal pain and vomiting for 2 days. Her labs are significant for leukocytosis and her CT( [facility]) show dilated loops of bowel and surrounding inflammation. Possible indication for Crohn's Flare. - No acute surgical intervention at this time - Admit to surgery service - KUB to verify NGT placement - IV ABX- zosyn - Consult GI for steroids and crohn's management - Pain management -EKG for evaluation sinus tachycardia , patient has a know history. COMPLICATIONS/SECONDARY DIAGNOSIS None Dr. Zepeda, Faculty, was notified of admission on 07/24/2020 at 0100. Stacey Luis [facility] PGY-1 Associated attestation - Farooq Zepeda MD - 07/26/2020 10:46 AM CDTI personally examined the patient on 07/[address] Ibarra's note. I actively participated in the decision-making process. Please see the resident's note for additional details. documented in this encounter Procedure Notes Ryan Hopper RN - 07/29/2020 12:35 PM CDTVascular Access Services A bedside timeout was conducted before procedure with ZAAR Kiran. An ultrasound guided, 4 Fr., 8cm. MIDLINE was then placed in the left brachial vein, in one attempt(s). Local anesthetic was not used. Labs were not obtained. REF#: [id number] Lot #: [id number] Exp: 12/15/21 documented in this encounter Consult Notes Deepika Anthony RN - 07/26/2020 11:45 AM CDTAssociated Order(s): CONSULT OSTOMY CAREWOCN Note Consult for new ostomy, POD#1, RLQ stoma, red. Pouch intact. Introduced self and discussed educationplan. Will order starter supplies and return for 1st pouch change. Deepika Anthony RN 07/26/2020 11:47 AM OSTOMY NURSE NOTE POD # 1 S/P: Diverting Ileostomy/MF SURGEON: Shaquille Chun MD REASON FOR VISIT: Follow-up contact with patient to evaluate and assess stoma, peristomal skin, provide ostomy education ASSESSMENT: Right lower quadrant; stoma is reddish, moist and soft, with adequate protrusion, is patent of dark brown liquid stool, measures 41mm. Mucocutaneous junction is intact, peristomal skin is intact, Interactive appliance change was done with patient and allowed practice. Education provided; [x] Patient has been instructed how/when to empty pouch of gas and stool [x] Patient has been instructed on how to properly measure/size a stoma for pouching [x] Patient has been instructed on peristomal skin care [x] Patient has been instructed how to change a pouch [x] Patient has been instructed on dietary considerations with an Ileosotmy [x] Patient was instructed on signs/symptoms of dehydration and treatment for [x] Patient was provided pamphlet 'Living with an Ileosotmy [x] Patient was provided written instructions over above education. Folder at bedside. Diagnostic code Z93.2 Status Ileostomy with refills to last life of ostomy - Change pouch every 3-4 days until suture line is healed then continue according to wear time up to 7 days. Pt is currently unfunded. Pt provided with ostomy resource sheet with product assistance LOOKSIMA. Extended wear drainable Pouches: Toño wafer #[id number] [facility] A4409 - Quantity 4 boxes(5)/month Toño Pouch #82381 [facility] A5063 - Quantity 2 boxes(10)/month Stoma Paste #20365 [facility] A4406 - Quantity 1/month Stoma powder [facility] A4371 - Quantity 1/month Adhesive remover generic [facility] A4365 - Quantity 1 box/month Skin barrier wipes- no sting generic [facility] A5120 - Quantity 1 box/month PLAN: Patient to practice managing pouch over the weekend once she is up out of bed. Will continue to follow while in hospital for ostomy education. Deepika DELGADON RN CWOCN Wound Ostomy Continence Nurse Adult Patient Care Services P [phone] M [phone] signed by Deepika Anthony RN at 07/26/2020 2:56 PM CDRoosevelt Meeks MD - 07/24/2020 10:25 AM CDT Associated Order(s): CONSULT GASTROENTEROLOGY Department of Gastroenterology & Hepatology Consult Note Requesting Physician: Farooq Zepeda, * Service: Surgery Reason for Consultation: Reason for consult - please give recommendation or opinion on: 44F with unmanaged Crohn's disease transferred from [facility] with small bowel obstruction Date of Service: 07/24/2020 CHIEF COMPLAINT: Small bowel obstruction History of Present Illness Jessica Farah is a 44 year old Black or female with PMH of reported Crohn's disease who presented as transfer from [facility] with abdominal pain and found to have small bowel obstruction early this morning. Patient says abdominal pain started 2 days ago, in the right lower abdomen. Feels like burning pain and severe 9/10 in intensity and says some pain medication seems to make it somewhat better. Patient with development of nausea at the same time, and also vomiting. She vomited over 20 times on day of pr esentation. Emesis appeared dark, and parts of it were green. No blood, but she says maybe there wassome coffee ground looking material. Nobody else is sick with similar symptoms. Denies any melena orhematochezia. She denies any diarrhea, and states last bowel movement was 3 days ago and it was formed, soft. She denies current consistent use of NSAIDs. She has had 2 C-sections in past and a hysterectomy. States she was diagnosed with Crohn's disease 15 years ago, and has been tried with Humira and steroids in the past. She is currently not taking anything and says she was diagnosed at [facility] and now following with Dr. Mcguire. Unclear when she was last treated, or where her GI doctor is. Upon presentation, vital signs were T 36.8 C, HR 97, RR 18, BP 148/91. Pertinent workup showed CT imaging with abnormal findings involving distal ileal loops. INR 1.0, Hgb 17.1, WBC 14, Plt 339, lactate of 3, She is started on IV pantoprazole 40 mg BID, and zosyn. PREVIOUS INVESTIGATIONS RADIOLOGY: 07/23/20 CONCLUSION: 1. Abnormal findings involving some of the distal ileal loops, with free fluid is seen in the lower abdomen and surrounding spleen. No free intraperitoneal air. Etiology is unclear given the history ofCrohn's disease but could be acute flareup of Crohn's disease. Involved loops of bowel showed poor contrast enhancement of the mucosa without any definite CT signs of bowel infarction. Possibility of small bowel obstruction cannot be excluded. 2. Appendix is not visualized, however, findings are not suggestive of acute appendicitis. EGD no prior records in system Colonoscopy no prior records in system Pathology none in system PAST MEDICAL HISTORY Past Medical History: Diagnosis Date Crohn disease IBS (irritable bowel syndrome) PAST SURGICAL HISTORY Past Surgical History: Procedure Laterality Date SECTION X 2 HYSTERECTOMY 2010 TUBAL LIGATION 1996 FAMILY HISTORY No family history on file. ALLERGIES Allergies Allergen Reactions Bentyl [Dicyclomine] Hives and Swelling Caffeine Hives and Swelling Fentanyl Hcl Hives Reglan [Metoclopramide Hcl] Itching Sulfa (Sulfonamide Antibiotics) Nausea and/or Vomiting Talwin [Pentazocine Lactate] Hives and Swelling Toradol [Ketorolac Tromethamine] Hives Zofran [Ondansetron Hcl (Pf)] Itching Morphine Itching Reports she tolerates Morphine with benadryl MEDICATIONS Current Facility-Administered Medications Medication Dose Route Frequency Last Rate Last Dose acetaminophen ADULT (OFIRMEV) injection 1,000 mg 1,000 mg IV Infusion Q8H ABX 1,000 mg at 07/24/20 0227 D5W 0.45% NaCl (1/2NS) 1 L + KCL 20 mEq IV Infusion CONTINUOUS 150 mL/hr at 07/24/20 0226 [START ON 07/25/2020] enoxaparin (LOVENOX) injection 40 mg 40 mg Subcutaneous Q24H metoprolol tartrate (LOPRESSOR) tablet 25 mg 25 mg Oral BID 25 mg at 07/24/20 0817 morpHINE injection 4 mg 4 mg Slow IV Push Q3HPRN 4 mg at 07/24/20 0818 pantoprazole (PROTONIX) 40 mg in NaCl 0.9% (NS) 100 mL MINI-BAG 40 mg IV Piggyback Q12H 40 mgat 07/24/20 0819 piperacillin-tazobactam (ZOSYN) 3.375 g in NaCl 0.9% (NS) 100 mL MINI-BAG 3.375 g IV Piggyback Q6H ABX 3.375 g at 07/24/20 0817 proMETHazine (PHENERGAN) 12.5 mg in NaCl 0.9% (NS) 50 mL IV piggyback 12.5 mg IV Piggyback Q4HPRN 12.5 mg at 07/24/20 0847 SOCIAL HISTORY Social History Socioeconomic History Marital status: Spouse name: Not on file Number of children: 2 Years of education: college Highest education level: High school graduate 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 Social Needs Financial resource strain: Not hard at all Food insecurity Worry: Patient refused Inability: Patient refused Transportation needs Medical: Patient refused Non-medical: Patient refused Tobacco Use Smoking status: Current Every Day Smoker Smokeless tobacco: Never Used Tobacco comment: 2-3 cigerette/day Substance and Sexual Activity Alcohol use: No Drug use: No Sexual activity: Yes Lifestyle Physical activity Days per week: Not on file Minutes per session: Not on file Stress: Not on file Relationships Social connections Talks on phone: Not on file Gets together: Not on file Attends cheondoism service: Not on file Active member of club or organization: Not on file Attends meetings of clubs or organizations: Not on file Relationship status: Not on file Intimate partner violence Fear of current or ex partner: Not on file Emotionally abused: Not on file Physically abused: Not on file Forced sexual activity: Not on file Other Topics Concern Not on file Social History Narrative Not on file ROS: Constitutional: No weakness HEENT: No dry mouth CV: No chest pain Resp: No shortness of breath GI: severe abdominal pain : No burning with urination MSK: No joint pain Skin: No rashes Neuro: No focal weakness Endo: No increased thirst Heme: No feelings of lymphadenopathy PHYSICAL EXAM BP (!) 160/106 (BP Location: Left arm, Patient Position: Sitting) | Pulse 132 | Temp 36.3 C (97.3 F) (Oral) | Resp 15 | Wt 70.3 kg (155 lb) | SpO2 97% | BMI 24.28 kg/m General: Patient alert and oriented x4, No apparent distress. HEENT: EOMI, Anicteric sclerae. Neck: Supple,no lymphadenopathy Cardiovascular: Regular rate and rhythm, no murmurs; no LE edema Respiratory: Clear to auscultation bilaterally. Abdomen: Distended, no surgical scars, inverted umbilicus, tenderness to mild palpation, no masses, normal bowel sounds. Rectal: deferred Musc: No spinal or paraspinal tenderness, no joint effusions, no clubbing. Skin: Intact and warm, dry. No jaundice or cyanosis. Neuro: No focal deficits LABORATORY HGB (g/dL) Date Value 07/24/2020 15.1 (H) 07/23/2020 17.1 (H) 08/23/2019 10.8 (L) PLT (10*3/L) Date Value 07/24/2020 277 07/23/2020 339 08/23/2019 274 INR (no units) Date Value 01/25/2016 1.0 Hepatic Function Panel ALBUMIN (g/dL) Date Value 07/23/2020 4.7 T PROTEIN (g/dL) Date Value 07/23/2020 8.9 (H) TOTAL BILI (mg/dL) Date Value 07/23/2020 1.0 BILI UNCON (mg/dL) Date Value 07/23/2020 1.0 BILI CONJ (mg/dL) Date Value 07/23/2020 0.0 ALT(SGPT) (U/L) Date Value 08/18/2019 19 ALTv (U/L) Date Value 07/23/2020 19 AST(SGOT) (U/L) Date Value 07/23/2020 24 ALK PHOS (U/L) Date Value 07/23/2020 77 BMP NA (mmol/L) Date Value 07/24/2020 137 K (mmol/L) Date Value 07/24/2020 4.1 CALCIUM (mg/dL) Date Value 07/24/2020 8.9 CL (mmol/L) Date Value 07/24/2020 102 BUN (mg/dL) Date Value 07/24/2020 19 CREATININE (mg/dL) Date Value 07/24/2020 0.93 GLUCOSE (mg/dL) Date Value 07/24/2020 170 (H) CO2 TOTAL (mmol/L) Date Value 07/24/2020 24 ASSESSMENT AND PLAN Jessica Farah is a 44 year old female with PMH as listed above, GI consulted for: Concern for Crohn's Flare Possible Small Bowel Obstruction Background: Type of IBD: ?Crohns Duration: 15 years Extent: unclear Therapies tried: steroids, humira (last dose 5 years ago?) Surgeries: 2 c-sections, 1 hysterectomy no bowel resections Extra- intestinal manifestations/complications: none Severity: mild Smoker: yes 1-2 cigarettes Immunization: unclear history Assessment: Patient has a questionable diagnosis of Crohn's disease and has not been treated with any immunosuppressant medications in years. She states her diagnosing GI doctor and her most recent GI doctor were in disagreement regarding whether she had Crohn's disease. Nonetheless, she now presents here in severe pain and appears very much in significant amount of pain. Recommendations: - Continue supportive care with NGT for suspected SBO - please obtain records from prior workup indicating documented Crohn's disease; appears last GI doctor was Dr. Mcguire - get ESR/CRP - although not currently passing BM can get infectious stool workup if develops loose stool - given her questionable history of Crohn's disease and her toxic appearance with severe abdominal pain we will recommend against the initiation of steroids at this time. This patient may potentially benefit from further surgical management if no improvement Patient was seen and discussed with Dr. Munoz. Please call with any questions. GI will continue to follow. Roosevelt Edwards MD PGY-4 Gastroenterology and Hepatology Fellow Pager [phone] Associated attestation - Wilberto Munoz MD - 07/24/2020 6:32 PM CDTI personally examined the patient on 07/24/[address] Edwards's note as written. I actively participated in the decision-making process. Please see the fellow's note for additional details. Farooq Hartman MD - 07/24/2020 9:48 AM CDTAssociated Order(s): CONSULT COLORECTAL SURGERY Colorectal Surgery Consult Note Reason for Consultation: Crohn's enteritis HPI: Patient is a 44 year-old woman with Crohn's disease diagnosed 30 years ago presenting to [facility] with abdominal pain, nausea, vomiting x 2 days. The pain had progressively worsened. Her last BM was 2-3 days prior to admission but she was continuing to have flatus. No fevers or chills. She had notseen her asset coordinator in over 1 year at which time she had a colonoscopy. She had also been on Humira in the past but stated that is made her more constipated. Patient transferred from [place] to [place] for specialized care in the setting of Crohn's Disease. Assessment: Jessica Farah is a 44 year old female with Crohn's disease and CT scan findings of loops of ileum that appear abnormal. She is presenting with signs and symptoms of a partial small bowel obstruction. Plan: - continue non-operative management with NGT, NPO, IVF for initial resuscitation - case request for laparoscopic ileocecectomy on 07/25/2020 - obtain consent - colorectal surgery assuming primary care of this patient Informed consent discussed with the patient, including: condition, proposed care, treatments and services, alternative forms of treatment, and risks of no treatment. Details discussed around the procedures to be used, and the risks and hazards involved, potential benefits, and side effects of the patients proposed care, treatment, and services; the likelihood of the patient achieving his or her goals; and any potential problems that might occur during recuperation. Reasonable alternative also discussed with the patients proposed care, treatment, and services. The discussion encompasses risks, benefits, and side effects related to the alternative and risks related to not receiving the proposed care, treatment, and services. Patient seen with Dr. Adiel Hartman MD, MPH 07/24/2020 9:48 AM General Surgery Chief Resident PGY-5 Past Medical History: Diagnosis Date Crohn disease IBS (irritable bowel syndrome) Past Surgical History: Procedure Laterality Date SECTION X 2 HYSTERECTOMY 2010 TUBAL LIGATION 1996 Current Outpatient Medications Medication Instructions acetaminophen-codeine (TYLENOL-CODEINE #4) 300-60 mg tablet 1 tablet, Oral, Q4HPRN ALPRAZolam (XANAX) 2 mg, Oral, BID dextroamphetamine-amphetamine (ADDERALL) 30 mg tablet 30 mg, Oral, BID levoFLOXacin (LEVAQUIN) 750 mg, Oral, Q24H metoprolol tartrate (LOPRESSOR) 25 mg, Oral, BID Pantoprazole (PROTONIX) 40 mg, Oral, BID proMETHazine (PHENERGAN) 25 mg, Oral, Q6HPRN Allergies Allergen Reactions Bentyl [Dicyclomine] Hives and Swelling Caffeine Hives and Swelling Fentanyl Hcl Hives Reglan [Metoclopramide Hcl] Itching Sulfa (Sulfonamide Antibiotics) Nausea and/or Vomiting Talwin [Pentazocine Lactate] Hives and Swelling Toradol [Ketorolac Tromethamine] Hives Zofran [Ondansetron Hcl (Pf)] Itching Morphine Itching Reports she tolerates Morphine with benadryl Family History: No IBD present in family Social History Socioeconomic History Marital status: Spouse name: Not on file Number of children: 2 Years of education: college Highest education level: High school graduate 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 Social Needs Financial resource strain: Not hard at all Food insecurity Worry: Patient refused Inability: Patient refused Transportation needs Medical: Patient refused Non-medical: Patient refused Tobacco Use Smoking status: Current Every Day Smoker Smokeless tobacco: Never Used Tobacco comment: 2-3 cigerette/day Substance and Sexual Activity Alcohol use: No Drug use: No Sexual activity: Yes Lifestyle Physical activity Days per week: Not on file Minutes per session: Not on file Stress: Not on file Relationships Social connections Talks on phone: Not on file Gets together: Not on file Attends cheondoism service: Not on file Active member of club or organization: Not on file Attends meetings of clubs or organizations: Not on file Relationship status: Not on file Intimate partner violence Fear of current or ex partner: Not on file Emotionally abused: Not on file Physically abused: Not on file Forced sexual activity: Not on file Other Topics Concern Not on file Social History Narrative Not on file REVIEW OF SYSTEMS: Constitutional: No fevers or chills Eyes: No blurry vision Ears: No ear pain and hearing loss Nose/Sinuses: No decreased sense of smell and epistaxis Mouth/Throat: No dryness Cardiovascular: No chest pain, irregular heart beat, or palpitations Respiratory: No difficulty breathing and shortness of breath Gastrointestinal: + Crohn's, nausea and vomiting, obstipation, abdominal pain; passing flatus Genitourinary: No dysuria, frequency, hematuria and urgency Musculoskeletal: No arthritis, back pain, joint swelling and muscle pain Integumentary: No rash Neuro: No dizziness, headache, memory loss or seizures Psych: No anxiety and depression Endocrine: No h/o thyroid disease Hem/Lymph: No bleeding disorder or bruising Allergy/Immunology: allergies to medication Objective: Temp (24hrs), Av.6 C (97.9 F), Min:36.3 C (97.3 F), Max:36.8 C (98.2 F) BP (!) 160/106 (BP Location: Left arm, Patient Position: Sitting) | Pulse 132 | Temp 36.3 C (97.3 F) (Oral) | Resp 15 | Wt 70.3 kg (155 lb) | SpO2 97% | BMI 24.28 kg/m Intake/Output Summary (Last 24 hours) at 07/24/2020 0948 Last data filed at 07/24/2020 0631 Gross per 24 hour Intake 2600 ml Output 525 ml Net 2075 ml Physical Exam: General - NAD HEENT - NCAT, PERRL, EOMI Neck - supple, FROM Pulm - normal effort CVS - regular rate Abd - soft, non-distended, general TTP, voluntary guarding, no rebound - not examined Ext - FROM, pulses 2+ Skin - warm/dry Neuro - CN II-XII grossly intact Diagnostic information: Cell count Recent Labs 07/23/20 1431 07/24/20 0234 WBC 14.04* 14.33* HGB 17.1* 15.1* MCV 93.1 94.2 PLT 339 277 Chemistry Recent Labs 07/23/20 1431 07/24/20 0234 NA 137 137 K 3.3* 4.1 CL 97* 102 TCO2 25 24 CREAT 0.94 0.93 GLU 236* 170* CA 10.4 8.9 LFTs Recent Labs 07/23/20 1431 AST 24 ALT 19 ALKPHOS 77 LIPASE 26 BILIT 1.0 BILICONJ 0.0 BILIUNCON 1.0 Urinalysis Recent Labs 07/23/20 1419 UPROTEIN 100 mg/dL* UGLUCOSE 50 mg/dL* UKETONES 80 mg/dL* UBILI Negative ULEUKEST Negative UNITRITE Negative USPGRAV 1.034* CT A/P 07/23/2020: CONCLUSION: 1. Abnormal findings involving some of the distal ileal loops, with free fluid is seen in the lower abdomen and surrounding spleen. No free intraperitoneal air. Etiology is unclear given the history of Crohn's disease but could be acute flareup of Crohn's disease. Involved loops of bowel showed poor contrast enhancement of the mucosa without any definite CT signs of bowel infarction. Possibility of small bowel obstruction cannot be excluded. 2. Appendix is not visualized, however, findings are not suggestive of acute appendicitis. Associated attestation - Darren Chun MD - 07/24/2020 4:10 PM CDTATTESTATION: I agree with the resident's note as written. I actively participated in the decision making process.Please see the resident's note for additional details. Ms. Farah is a 44F admitted with symptoms of SBO. She reports passing gas per rectum this morning. She has had episodes like this in the past but much more mild. On exam she has a NGT in place with minimal drainage in the cannister, tachycardic, mildly distended, diffusely TTP, without guarding, +rebound in the RLQ, mildly tender to percussion. Labs reveal leukocytosis, no JULIAN. CT scan c/w pSBO due to ileal stricture. I explained medical vs surgical management of Crohn's disease. If medical therapy not to be pursued I recommended surgical management with lap vs open ileocecectomy with anastomosis. I explained the risks of bleeding, infection, scar, pain, damage to nearby organs and anastomotic leak. I explained that ostomy may be necessary. All of her questions were answered. We will continue to monitor her exam and tentatively plan for OR. Darren Chun MD MS Colon and Rectal SurgeryMao, MD Yanick - 07/23/2020 7:49 PM CDTAssociated Order(s): CONSULT GENERAL SURGERY GENERAL SURGERY CONSULTATION NOTE Reason for Consultation / Chief Complaint: Nausea and vomiting, abdominal pain Consult Requested By: Dr. Negro History of Present Illness: Jessica Farah is a 44 year old female with PMH Crohn's diseasediagnosed 15 years ago who presents with abdominal pain, nausea, and vomiting for 1 day. She reportsthis started yesterday while she was sleeping. Multiple bouts of vomiting described as nonbloody andnonbilious. Has never had anything like this happen before. Denies fever, chills, diarrhea, urinary issues but reports constipation, last BM was 3 days ago and cannot remember passing gas recently. Sheis seen by a asset coordinator in [place] for her Crohn's but currently not taking any medicationsfor it because she reports the medications are poorly tolerated. Crohn's diagnosed in the past via colonoscopy and biopsy. Only surgical history is hysterectomy and , no bowel resections. In ED, she was afebrile but tachycardic to 120s and hypertensive to 160s. Lab significant for WBC 14, Hgb17, glucose 236. CTAP showed distended loops of small bowel with inflammation (especially noted in te rminal ileum) and free fluid in the pelvis read as Crohn's flare vs SBO. Surgery was consulted for possible intervention Past Medical History: Past Medical History: Diagnosis Date Crohn disease IBS (irritable bowel syndrome) Past Surgical History: Past Surgical History: Procedure Laterality Date SECTION X 2 HYSTERECTOMY 2010 TUBAL LIGATION 1996 Allergies: Allergies Allergen Reactions Bentyl [Dicyclomine] Hives and Swelling Caffeine Hives and Swelling Fentanyl Hcl Hives Reglan [Metoclopramide Hcl] Itching Sulfa (Sulfonamide Antibiotics) Nausea and/or Vomiting Talwin [Pentazocine Lactate] Hives and Swelling Toradol [Ketorolac Tromethamine] Hives Zofran [Ondansetron Hcl (Pf)] Itching Morphine Itching Reports she tolerates Morphine with benadryl Medications: Patient's Medications START taking these medications No medications on file CONTINUE taking these medications which have NOT CHANGED ACETAMINOPHEN-CODEINE (TYLENOL-CODEINE #4) 300-60 MG TABLET Take 1 tablet by mouth every 4 (four) hours as needed for Pain. ALPRAZOLAM (XANAX) 2 MG TABLET Take 2 mg by mouth 2 (two) times daily. DEXTROAMPHETAMINE-AMPHETAMINE (ADDERALL) 30 MG TABLET Take 30 mg by mouth 2 (two) times daily. LEVOFLOXACIN 750 MG TABLET Take 1 tablet by mouth every 24 (twenty-four) hours. METOPROLOL TARTRATE 25 MG TABLET Take 1 tablet by mouth 2 (two) times daily. PANTOPRAZOLE (PROTONIX) 40 MG DELAYED-RELEASE SUSPENSION Take 40 mg by mouth 2 (two) times daily. PROMETHAZINE 25 MG TABLET Take 1 tablet by mouth every 6 (six) hours as needed for Nausea and Vomiting (N/V). START taking Modified Medications as Prescribed No medications on file STOP taking these medications No medications on file Current Facility-Administered Medications Medication Dose Route Frequency Last Rate Last Dose [COMPLETED] proMETHazine (PHENERGAN) 12.5 mg in NaCl 0.9% (NS) 50 mL piggyback 12.5 mg IV Piggyback ONCE 12.5 mg at 07/23/202029 Current Outpatient Medications Medication Sig Dispense Refill acetaminophen-codeine (TYLENOL-CODEINE #4) 300-60 mg tablet Take 1 tablet by mouth every 4 (four) hours as needed for Pain. 20 tablet 0 levoFLOXacin 750 mg tablet Take 1 tablet by mouth every 24 (twenty-four) hours. 4 tablet 0 metoprolol tartrate 25 mg tablet Take 1 tablet by mouth 2 (two) times daily. 60 tablet 0 proMETHazine 25 mg tablet Take 1 tablet by mouth every 6 (six) hours as needed for Nausea and Vomiting (N/V). 12 tablet 0 ALPRAZolam (XANAX) 2 mg tablet Take 2 mg by mouth 2 (two) times daily. dextroamphetamine-amphetamine (ADDERALL) 30 mg tablet Take 30 mg by mouth 2 (two) times daily. Pantoprazole (PROTONIX) 40 mg delayed-release suspension Take 40 mg by mouth 2 (two) times daily. Family History: No family history on file. Social History: Social History Socioeconomic History Marital status: Spouse name: Not on file Number of children: Not on file Years of education: Not on file Highest education level: Not on file Occupational History Not on file Social Needs Financial resource strain: Not on file Food insecurity Worry: Not on file Inability: Not on file Transportation needs Medical: Not on file Non-medical: Not on file Tobacco Use Smoking status: Former Smoker Smokeless tobacco: Never Used Substance and Sexual Activity Alcohol use: No Drug use: No Sexual activity: Yes Lifestyle Physical activity Days per week: Not on file Minutes per session: Not on file Stress: Not on file Relationships Social connections Talks on phone: Not on file Gets together: Not on file Attends cheondoism service: Not on file Active member of club or organization: Not on file Attends meetings of clubs or organizations: Not on file Relationship status: Not on file Intimate partner violence Fear of current or ex partner: Not on file Emotionally abused: Not on file Physically abused: Not on file Forced sexual activity: Not on file Other Topics Concern Not on file Social History Narrative Not on file Review of Systems (BOLDED if positive. Otherwise negative.) General: weight changes, fatigue, fever Eyes: corrective lenses, pain, blurred vision ENT: hearing problems, earaches, allergies, nose bleeds Skin: rashes, lumps Respiratory: cough, wheeze, shortness of breath Cardiac: chest discomfort, palpitations Gastrointestinal: swallowing problems, nausea/vomiting, blood in stool, abdominal pain Musculoskeletal: muscle cramps, back pain, joint pain, weakness, tingling, pain in feet Immunologic: food allergies, recurrent infections Urinary: increased frequency, burning, urinating at night, incontinence, blood in urine Psychiatric: anxiety, depression Endocrine: thyroid trouble, diabetes Neurologic: fainting, seizures, loss of memory, headaches, numbness, stroke Hematologic: anemia, bleeding problems, transfusion reaction Physical Exam: BP (!) 164/120 | Pulse 114 | Temp 36.6 C (97.8 F) (Oral) | Resp 15 | Wt 70.3 kg (155 lb) | SpO2 97% | BMI 24.28 kg/m Intake/Output Summary (Last 24 hours) at 07/23/2020 194 Last data filed at 07/23/2020 1720 Gross per 24 hour Intake 1000 ml Output Net 1000 ml General: somnolent but in no apparent distress Head: normocephalic, atraumatic Eyes: extraocular movements intact; no scleral icterus ENT: no rhinorrhea, moist mucus membranes Neck: supple, trachea midline CV: tachycardic, normal S1 and S2, normal rhythm Resp: unlabored, no increased work of breathing, equal bilateral chest rise Gi: abdomen soft, moderately distended, tender to palpation in epigastric, periumbilical, and especially RLQ with voluntary guarding, no peritonitis Extremities/Musculoskeletal: moves extremities well, no edema or cyanosis Skin: skin color, texture, and turgor normal; no rashes or lesions Neuro: unremarkable without focal findings Psych: normal mood and affect; judgement intact Labs: I independently reviewed the patient's labs. CBC WBC (10*3/L) Date Value 07/23/2020 14.04 (H) RBC (10*6/L) Date Value 07/23/2020 5.34 (H) PLT (10*3/L) Date Value 07/23/2020 339 HGB (g/dL) Date Value 07/23/2020 17.1 (H) HCT (%) Date Value 07/23/2020 49.7 (H) BMP NA (mmol/L) Date Value 07/23/2020 137 K (mmol/L) Date Value 07/23/2020 3.3 (L) CALCIUM (mg/dL) Date Value 07/23/2020 10.4 CL (mmol/L) Date Value 07/23/2020 97 (L) BUN (mg/dL) Date Value 07/23/2020 18 CREATININE (mg/dL) Date Value 07/23/2020 0.94 GLUCOSE (mg/dL) Date Value 07/23/2020 236 (H) CO2 TOTAL (mmol/L) Date Value 07/23/2020 25 Hepatic Function Panel ALBUMIN (g/dL) Date Value 07/23/2020 4.7 T PROTEIN (g/dL) Date Value 07/23/2020 8.9 (H) TOTAL BILI (mg/dL) Date Value 07/23/2020 1.0 BILI UNCON (mg/dL) Date Value 07/23/2020 1.0 BILI CONJ (mg/dL) Date Value 07/23/2020 0.0 ALT(SGPT) (U/L) Date Value 08/18/2019 19 ALTv (U/L) Date Value 07/23/2020 19 AST(SGOT) (U/L) Date Value 07/23/2020 24 ALK PHOS (U/L) Date Value 07/23/2020 77 Radiology: I independently reviewed the patient's CT scan. Hospital Encounter on 07/23/20 CT ABDOMEN PELVIS W CONTRAST Narrative CT Abdomen and Pelvis with intravenous contrast. CLINICAL HISTORY: Abdominal pain. Rule out appendicitis. DOSE: Up-to-date CT equipment and radiation dose reduction techniques were employed. CTDIvol: 5.43 mGy. DLP: 257 mGy-cm. TECHNIQUE : Contiguous axial imaging from the level of the lung bases through the pubic symphysis were performed after the uncomplicated administration of Omnipaque contrast material. Coronal and sagittal reconstructions were obtained. Auto mA and/or iterative reconstruction were used to reduce radiation dose. FINDINGS: Comparison is made with 08/18/2019 study. Lower lungs: Clear. No pleural effusion or pericardial effusion. Probable short sliding hiatal hernia. Liver, Gallbladder and Spleen: No calcified gallstones. Liver is 12.4 cm and spleen is 7.5 x 2.5 cm in size. Biliary ducts and the pancreatic duct appear of normal size. Peritoneum: No free air. Free fluid noted surrounding intestines, spleen, minimal around the liver and in the cul-de-sac. Small lymph nodes are seen in the right lower quadrant of the abdomen. Pancreas and Adrenals: Unremarkable pancreas and adrenal glands. Kidneys and Ureters: No visible calculi in the renal collecting systems. No hydroureter or hydronephrosis. Vessels: Normal. Retroperitoneum: No abnormal fluid or lymphadenopathy. Bowel: Several ileal loops are dilated up to 3.5 cm with submucosal edema, congestion of the surrounding mesentery and small amount of fluid surrounding abnormal bowel loops. Some of the bowel loops proximal to the edematous ileum with distended with gas. Appendix is not visualized, however, findings are not suggestive of acute appendicitis. Bladder and Reproductive Organs: S/P hysterectomy. Grossly unremarkable unopacified and incompletely distended urinary bladder. Bones: Mild bilateral hip joint arthritis. No aggressive bone lesions. No compression deformity in the lower thoracic or lumbar vertebral bodies. Soft tissues: Unremarkable. CONCLUSION: 1. Abnormal findings involving some of the distal ileal loops, with free fluid is seen in the lower abdomen and surrounding spleen. No free intraperitoneal air. Etiology is unclear given the history of Crohn's disease but could be acute flareup of Crohn's disease. Involved loops of bowel showed poor contrast enhancement of the mucosa without any definite CT signs of bowel infarction. Possibility of small bowel obstruction cannot be excluded. 2. Appendix is not visualized, however, findings are not suggestive of acute appendicitis. Assessment: Jessica Farah is a 44 year old female with PMH Crohn's disease who presents with abdominal pain and vomiting for 1 day. Found to have leukocytosis and CTAP showed dilated loops ofsmall bowel with surrounding inflammation and free fluid, concerning for Crohn's flare. No transition point seen, SBO less likely given that patient has not been on any medication for her Crohn's Plan: 1. Recommend NGT and [place] 2. Agree with zosyn 3. Patient discussed with Dr. Zepeda in [place] who has accepted for transfer for further GI workup and management Patient seen and discussed with faculty Dr. Martin Orr MD General Surgery PGY-2 Associated attestation - Indy Salazar MD - 07/24/2020 11:04 AM CDTAttending Attestation: I personally evaluated and examined the patient on 07/23/[address] Orr's consultation note as written. I actively participated in the decision- making process. Please see the resident's notefor additional details. 44 YEAR- OLD F with a history of HTN, Dm, and Crohn's Disease presented to the ED with a 1 day c/o abdominal pain with nausea and vomiting. She is seen by Dr. Mcguire in [place]. She has not been on any medication for Crohn's Disease for several years. Work up in the ED demonstrated elevated WBC to 14, hypokalemia, elevated glucose, and inflammatory changes of the distal ileum, partial SBO, and free fluid on CT c/w active Crohn's Disease with obstruction. Recommend NGT, [place], IVF resuscitation, electrolyte replacement, and transfer to [place] for GI evaluation. Discussedwith Dr. Zepeda who has agreed to accept the patent. Indy Salazar M.D. 07/24/2020 10:59documented in this encounter ED Notes Ghislaine Marks RN - 07/23/2020 11:54 AM CDTPt reports that she has had abdominal pain with vomiting since Yesterday. Pt requesting morphine to be removed from allergy list, because sometimes they won't give me Dilaudid and I will take morphine instead. 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 No diarrhea. Concurrent non-focal abdominal pain, burning, "hot lava", constant, wax/wane intensity, aggravated with vomiting, no definitive relieving factors. No fever. No cold symptoms. No dyspnea. No chest pain. No black/bloody stools. No dysuria. (+) urinary frequency. History provided by: Patient Past Medical History/Immunizations: Past Medical History: Diagnosis Date Crohn disease IBS (irritable bowel syndrome) Tetanus received in last 5 years: Yes Childhood immunizations: Up-to-date Allergies: Allergies Allergen Reactions Bentyl [Dicyclomine] Hives and Swelling Caffeine Hives and Swelling Fentanyl Hcl Hives Reglan [Metoclopramide Hcl] Itching Sulfa (Sulfonamide Antibiotics) Nausea and/or Vomiting Talwin [Pentazocine Lactate] Hives and Swelling Toradol [Ketorolac Tromethamine] Hives Zofran [Ondansetron Hcl (Pf)] Itching Morphine Itching Reports she tolerates Morphine with benadryl Past Social History: Tobacco Use Former Smoker. Smokeless Tobacco: Never used smokeless tobacco. Alcohol Use No. Drug Use No. Sexual Activity Sexually active. Past Surgical History: Past Surgical History: Procedure Laterality Date SECTION X 2 HYSTERECTOMY 2010 TUBAL LIGATION 1996 Review of Systems: Review of Systems Constitutional: Negative. HENT: Negative. Eyes: Negative. Respiratory: Negative. Cardiovascular: Negative. Gastrointestinal: Positive for abdominal pain, nausea and vomiting. Negative for blood in stool and diarrhea. Genitourinary: Positive for frequency. Negative for dysuria and flank pain. Musculoskeletal: Negative. Skin: Negative. Neurological: Negative. Psychiatric/Behavioral: Negative. Physical Exam: ED Triage Vitals [07/23/20 1157] Weight 70.3 kg (155 lb) Actual or estimated Height BP 137/87 Pulse 128 Resp 20 Temp 36.6 C (97.8 F) Temp source Oral SpO2 100 % Measured on Room air Physical Exam Vitals signs and nursing note reviewed. Constitutional: General: She is not in acute distress. Appearance: Normal appearance. She is not ill-appearing, toxic-appearing or diaphoretic. HENT: Head: Normocephalic and atraumatic. Nose: Nose normal. Eyes: Extraocular Movements: Extraocular movements intact. Conjunctiva/sclera: Conjunctivae normal. Neck: Musculoskeletal: Normal range of motion. Cardiovascular: Rate and Rhythm: Regular rhythm. Tachycardia present. Pulmonary: Effort: Pulmonary effort is normal. No respiratory distress. Breath sounds: Normal breath sounds. No stridor. No wheezing, rhonchi or rales. Chest: Chest wall: No tenderness. Abdominal: General: There is no distension. Tenderness: There is abdominal tenderness (non-focal). Musculoskeletal: Normal range of motion. Skin: General: Skin is warm and dry. Neurological: General: No focal deficit present. Mental Status: She is alert. Psychiatric: Mood and Affect: Mood normal. Radiology: Hospital Encounter on 07/23/20 CT ABDOMEN PELVIS W CONTRAST Narrative CT Abdomen and Pelvis with intravenous contrast. CLINICAL HISTORY: Abdominal pain. Rule out appendicitis. DOSE: Up-to-date CT equipment and radiation dose reduction techniques were employed. CTDIvol: 5.43 mGy. DLP: 257 mGy-cm. TECHNIQUE : Contiguous axial imaging from the level of the lung bases through the pubic symphysis were performed after the uncomplicated administration of Omnipaque contrast material. Coronal and sagittal reconstructions were obtained. Auto mA and/or iterative reconstruction were used to reduce radiation dose. FINDINGS: Comparison is made with 08/18/2019 study. Lower lungs: Clear. No pleural effusion or pericardial effusion. Probable short sliding hiatal hernia. Liver, Gallbladder and Spleen: No calcified gallstones. Liver is 12.4 cm and spleen is 7.5 x 2.5 cm in size. Biliary ducts and the pancreatic duct appear of normal size. Peritoneum: No free air. Free fluid noted surrounding intestines, spleen, minimal around the liver and in the cul-de-sac. Small lymph nodes are seen in the right lower quadrant of the abdomen. Pancreas and Adrenals: Unremarkable pancreas and adrenal glands. Kidneys and Ureters: No visible calculi in the renal collecting systems. No hydroureter or hydronephrosis. Vessels: Normal. Retroperitoneum: No abnormal fluid or lymphadenopathy. Bowel: Several ileal loops are dilated up to 3.5 cm with submucosal edema, congestion of the surrounding mesentery and small amount of fluid surrounding abnormal bowel loops. Some of the bowel loops proximal to the edematous ileum with distended with gas. Appendix is not visualized, however, findings are not suggestive of acute appendicitis. Bladder and Reproductive Organs: S/P hysterectomy. Grossly unremarkable unopacified and incompletely distended urinary bladder. Bones: Mild bilateral hip joint arthritis. No aggressive bone lesions. No compression deformity in the lower thoracic or lumbar vertebral bodies. Soft tissues: Unremarkable. CONCLUSION: 1. Abnormal findings involving some of the distal ileal loops, with free fluid is seen in the lower abdomen and surrounding spleen. No free intraperitoneal air. Etiology is unclear given the history of Crohn's disease but could be acute flareup of Crohn's disease. Involved loops of bowel showed poor contrast enhancement of the mucosa without any definite CT signs of bowel infarction. Possibility of small bowel obstruction cannot be excluded. 2. Appendix is not visualized, however, findings are not suggestive of acute appendicitis. Lab Results (24h): Recent Results (from the past 24 hour(s)) Urinalysis Collection Time: 07/23/20 2:19 PM Result Value Ref Range APPEARANCE Hazy (A) Clear COLOR Kathleen (A) Yellow PH 5.0 4.8 - 8.0 SP GRAVITY 1.034 (H) 1.003 - 1.030 GLU U QUAL 50 mg/dL (A) Normal BLOOD Negative Negative KETONES 80 mg/dL (A) Negative PROTEIN 100 mg/dL (A) Negative UROBILIN Normal Normal BILIRUBIN Negative Negative NITRITE Negative Negative LEUK CHELY Negative Negative RBC/HPF 2 0 - 3 HPF WBC/HPF 5 0 - 5 HPF BACTERIA Few (A) Negative MUCOUS Marked (A) Negative LPF SQ EPITH 6 HPF CBC with Differential Collection Time: 07/23/20 2:31 PM Result Value Ref Range WBC 14.04 (H) 4.30 - 11.10 10*3/L RBC 5.34 (H) 3.93 - 5.25 10*6/L HGB 17.1 (H) 11.6 - 15.0 g/dL HCT 49.7 (H) 35.7 - 45.2 % MCV 93.1 80.6 - 95.5 fL MCH 32.0 25.9 - 32.8 pg MCHC 34.4 31.6 - 35.1 g/dL RDW-SD 39.7 39.0 - 49.9 fL RDW-CV 11.5 (L) 12.0 - 15.5 % PLT 339 166 - 358 10*3/L MPV 10.4 9.5 - 12.9 fL NRBC/100 WBC 0.0 0.0 - 10.0 /100 WBCs NRBC x10^3 <0.01 10*3/L GRAN MAT (NEUT) % 90.3 % IMM GRAN % 0.50 % LYMPH % 5.4 % MONO % 3.7 % EOS % 0.0 % BASO % 0.1 % GRAN MAT x10^3(ANC) 12.67 (H) 1.88 - 7.09 10*3/uL IMM GRAN x10^3 0.07 (H) 0.00 - 0.06 10*3/uL LYMPH x10^3 0.76 (L) 1.32 - 3.29 10*3/uL MONO x10^3 0.52 0.33 - 0.92 10*3/uL EOS x10^3 <0.03 (L) 0.03 - 0.39 10*3/uL BASO x10^3 <0.03 0.01 - 0.07 10*3/uL Basic Metabolic Panel (NA, K, CL, CO2, GLUCOSE, BUN, CREATININE, CA) Collection Time: 07/23/20 2:31 PM Result Value Ref Range NA 137 135 - 145 mmol/L K 3.3 (L) 3.5 - 5.0 mmol/L CL 97 (L) 98 - 108 mmol/L CO2 TOTAL 25 23 - 31 mmol/L AGAP 15 2 - 16 BUN 18 7 - 23 mg/dL GLUCOSE 236 (H) 70 - 110 mg/dL CREATININE 0.94 0.50 - 1.04 mg/dL CALCIUM 10.4 8.6 - 10.6 mg/dL eGFR Calculation (Non-) 64.4 mL/min/1.73m2 eGFR Calculation () 78.0 mL/min/1.73m2 Hepatic Function Panel (ALB, T.PRO, BILI T, BU/BC, ALT, AST, ALK PHOS) Collection Time: 07/23/20 2:31 PM Result Value Ref Range TOTAL BILI 1.0 0.1 - 1.1 mg/dL BILI UNCON 1.0 0.1 - 1.1 mg/dL BILI CONJ 0.0 0.0 - 0.3 mg/dL T PROTEIN 8.9 (H) 6.3 - 8.2 g/dL ALBUMIN 4.7 3.5 - 5.0 g/dL ALK PHOS 77 34 - 122 U/L ALTv 19 5 - 35 U/L AST(SGOT) 24 13 - 40 U/L Lipase Serum Collection Time: 07/23/20 2:31 PM Result Value Ref Range LIPASE 26 0 - 220 U/L Lactic Acid Whole Blood Collection Time: 07/23/20 4:41 PM Result Value Ref Range LACTIC ACID 2.30 mmol/L EKG: none Orders and Treatments: Orders Placed This Encounter Procedures CT ABDOMEN PELVIS W CONTRAST Urinalysis CBC with Differential Basic Metabolic Panel (NA, K, CL, CO2, GLUCOSE, BUN, CREATININE, CA) Hepatic Function Panel (ALB, T.PRO, BILI T, BU/BC, ALT, AST, ALK PHOS) Lipase Serum Lactic Acid Whole Blood Lactic Acid Whole Blood BLOOD CULTURE SCREEN BLOOD CULTURE SCREEN COVID-19 (ID NOW RAPID TESTING) CONSULT GENERAL SURGERY Orders Placed This Encounter Medications NaCl 0.9% (NS) bolus infusion 1,000 mL proMETHazine (PHENERGAN) 12.5 mg in NaCl 0.9% (NS) 50 mL piggyback famotidine (PEPCID (PF)) injection 20 mg morpHINE injection 4 mg diphenhydrAMINE (BENADRYL) injection 25 mg methylPREDNISolone sod succ (SOLU-MEDROL (PF)) injection 40 mg iohexol (OMNIPAQUE 350 BULK-150 mL) injection 114 mL morpHINE injection 4 mg piperacillin-tazobactam (ZOSYN) 3.375 g in NaCl 0.9% (NS) 100 mL MINI-BAG morpHINE injection 4 mg proMETHazine (PHENERGAN) 12.5 mg in NaCl 0.9% (NS) 50 mL piggyback morpHINE injection 4 mg ED COURSE ED Course as of Jul 23 1917 Tue Jul 23, [id number] Findings and plan discussed with patient. [RK] [address] Salazar, General Surgery. Patient examined by Dr Salazar. Imaging reviewed. Requires resources that exceed ADC capabilities. Dr Salazar discussed case with [facility] faculty combination saw operator, Dr Zepeda. Accepted for transfer, pending bed capacity. [RK] 1504 PDMP Reviewed. Narx score 460. Adderall (#60), alprazolam (#90) each month. Dr Farooq Martinez Frankie. [RK] ED Course User Index [RK] Terrence Negro MD MDM: MDM Reviewed: previous chart, nursing note and vitals Interpretation: labs and CT scan Diagnosis/Impression: ICD-10-CM ICD-9-CM 1. Small bowel obstruction K56.609 560.9 2. Abdominal pain, unspecified abdominal location R10.9 789.00 3. Free fluid in pelvis R18.8 789.59 4. Crohn's disease of colon with complication K50.119 555.1 Disposition/Condition: ED Disposition ED Disposition Condition Comment Transfer - [facility] to IP/Obs Discharge Medications: Patient's Medications START taking these medications No medications on file CONTINUE taking these medications which have NOT CHANGED ACETAMINOPHEN-CODEINE (TYLENOL-CODEINE #4) 300-60 MG TABLET Take 1 tablet by mouth every 4 (four) hours as needed for Pain. ALPRAZOLAM (XANAX) 2 MG TABLET Take 2 mg by mouth 2 (two) times daily. DEXTROAMPHETAMINE-AMPHETAMINE (ADDERALL) 30 MG TABLET Take 30 mg by mouth 2 (two) times daily. LEVOFLOXACIN 750 MG TABLET Take 1 tablet by mouth every 24 (twenty-four) hours. METOPROLOL TARTRATE 25 MG TABLET Take 1 tablet by mouth 2 (two) times daily. PANTOPRAZOLE (PROTONIX) 40 MG DELAYED-RELEASE SUSPENSION Take 40 mg by mouth 2 (two) times daily. PROMETHAZINE 25 MG TABLET Take 1 tablet by mouth every 6 (six) hours as needed for Nausea and Vomiting (N/V). START taking Modified Medications as Prescribed No medications on file STOP taking these medications No medications on file Follow-up: n/a Electronically signed by: Terrence Negro MD 07/23/2020 12:36 PM documented in this encounter Miscellaneous Notes Care Plan - Melissa Palacios RN - 08/01/2020 1:06 PM CDT Problem: Pain Goal: Control of pain at or below patient's documented comfort goal 08/01/2020 1257 by Melissa Palacios RN Outcome: Adequate for discharge 08/01/2020 1257 by Melissa Palacios RN Outcome: Progressing as expected Goal: Reduction in pain sensation 08/01/2020 1257 by Melissa Palacios RN Outcome: Adequate for discharge 08/01/2020 1257 by Melissa Palacios RN Outcome: Progressing as expected Problem: Falls, Risk of Goal: Absence of falls 08/01/2020 1257 by Melissa Palacios RN Outcome: Adequate for discharge 08/01/2020 1257 by Melissa Palacios RN Outcome: Progressing as expected Problem: Nausea/Vomiting Goal: Absence of nausea/vomiting 08/01/2020 1257 by Melissa Palacios RN Outcome: Adequate for discharge 08/01/2020 1257 by Melissa Palacios RN Outcome: Progressing as expected Problem: Infection Risk Goal: Absence of infection 08/01/2020 1257 by Melissa Palacios RN Outcome: Adequate for discharge 08/01/2020 1257 by Melissa Palacios RN Outcome: Progressing as expected are Plan - Melissa Palacios RN - 08/01/2020 12:57 PM CDT Problem: Pain Goal: Control of pain at or below patient's documented comfort goal 08/01/2020 1257 by Melissa Palacios RN Outcome: Adequate for discharge 08/01/2020 1257 by Melissa Palacios RN Outcome: Progressing as expected Goal: Reduction in pain sensation 08/01/2020 1257 by Melissa Palacios RN Outcome: Adequate for discharge 08/01/2020 1257 by Melissa Palacios RN Outcome: Progressing as expected Problem: Falls, Risk of Goal: Absence of falls 08/01/2020 1257 by Melissa Palacios RN Outcome: Adequate for discharge 08/01/2020 1257 by Melissa Palacios RN Outcome: Progressing as expected Problem: Nausea/Vomiting Goal: Absence of nausea/vomiting 08/01/2020 1257 by Melissa Palacios RN Outcome: Adequate for discharge 08/01/2020 1257 by Melissa Palacios RN Outcome: Progressing as expected Problem: Infection Risk Goal: Absence of infection 08/01/2020 1257 by Melissa Palacios RN Outcome: Adequate for discharge 08/01/2020 1257 by Melissa Palacios RN Outcome: Progressing as expected are Melissa Olsen RN - 08/01/2020 12:57 PM CDT Problem: Pain Goal: Control of pain at or below patient's documented comfort goal Outcome: Progressing as expected Goal: Reduction in pain sensation Outcome: Progressing as expected Problem: Falls, Risk of Goal: Absence of falls Outcome: Progressing as expected Problem: Nausea/Vomiting Goal: Absence of nausea/vomiting Outcome: Progressing as expected Problem: Infection Risk Goal: Absence of infection Outcome: Progressing as expected are Crystal Lyles RN - 08/01/2020 1:50 AM CDT Problem: Pain Goal: Control of pain at or below patient's documented comfort goal Outcome: Progressing as expected Goal: Reduction in pain sensation Outcome: Progressing as expected Problem: Falls, Risk of Goal: Absence of falls Outcome: Progressing as expected Problem: Nausea/Vomiting Goal: Absence of nausea/vomiting Outcome: Progressing as expected Problem: Infection Risk Goal: Absence of infection Outcome: Progressing as expected Care Lynda Elliott RN - 07/31/2020 7:44 PM CDT Problem: Pain Goal: Control of pain at or below patient's documented comfort goal Outcome: Progressing as expected Goal: Reduction in pain sensation Outcome: Progressing as expected are Crystal Lyles RN - 07/31/2020 2:16 AM CDT Problem: Pain Goal: Control of pain at or below patient's documented comfort goal Outcome: Progressing as expected Goal: Reduction in pain sensation Outcome: Progressing as expected Problem: Falls, Risk of Goal: Absence of falls Outcome: Progressing as expected Problem: Nausea/Vomiting Goal: Absence of nausea/vomiting Outcome: Progressing as expected Problem: Infection Risk Goal: Absence of infection Outcome: Progressing as expected Care Plan - Lynda Lima RN - 07/30/2020 8:25 PM CDT Problem: Pain Goal: Control of pain at or below patient's documented comfort goal Outcome: Progressing as expected Goal: Reduction in pain sensation Outcome: Progressing as expected are Carmela - Parris Abdullahi RN - 07/29/2020 6:38 PM CDT Problem: Pain Goal: Control of pain at or below patient's documented comfort goal Outcome: Progressing as expected Goal: Reduction in pain sensation Outcome: Progressing as expected Problem: Falls, Risk of Goal: Absence of falls Outcome: Progressing as expected Problem: Nausea/Vomiting Goal: Absence of nausea/vomiting Outcome: Progressing as expected Problem: Infection Risk Goal: Absence of infection Outcome: Progressing as expected are Carmela - Darlyn Horne RN - 07/29/2020 1:43 AM CDT Problem: Pain Goal: Control of pain at or below patient's documented comfort goal Outcome: Progressing as expected Goal: Reduction in pain sensation Outcome: Progressing as expected Problem: Falls, Risk of Goal: Absence of falls Outcome: Progressing as expected Problem: Nausea/Vomiting Goal: Absence of nausea/vomiting Outcome: Progressing as expected Problem: Infection Risk Goal: Absence of infection Outcome: Progressing as expected Care Plan - Ghislaine Adame RN - 07/28/2020 11:36 PM CDT Problem: Pain Goal: Control of pain at or below patient's documented comfort goal Outcome: Progressing as expected Goal: Reduction in pain sensation Outcome: Progressing as expected Problem: Falls, Risk of Goal: Absence of falls Outcome: Progressing as expected Problem: Infection Risk Goal: Absence of infection Outcome: Progressing as expected are Plan - Jerry Barajas RN - 07/28/2020 6:40 AM CDT Problem: Pain Goal: Control of pain at or below patient's documented comfort goal Outcome: Progressing as expected Goal: Reduction in pain sensation Outcome: Progressing as expected are Plan - Magda Randolph RN - 07/27/2020 4:42 PM CDT Problem: Pain Goal: Control of pain at or below patient's documented comfort goal Outcome: Progressing as expected Goal: Reduction in pain sensation Outcome: Progressing as expected Problem: Falls, Risk of Goal: Absence of falls Outcome: Progressing as expected Problem: Nausea/Vomiting Goal: Absence of nausea/vomiting Outcome: Progressing as expected Problem: Infection Risk Goal: Absence of infection Outcome: Progressing as expected are Plan - Buddy Edwards RN - 07/26/2020 9:52 PM CDT Problem: Pain Goal: Control of pain at or below patient's documented comfort goal Outcome: Progressing as expected Goal: Reduction in pain sensation Outcome: Progressing as expected Problem: Falls, Risk of Goal: Absence of falls Outcome: Progressing as expected Problem: Nausea/Vomiting Goal: Absence of nausea/vomiting Outcome: Progressing as expected Problem: Infection Risk Goal: Absence of infection Outcome: Progressing as expected are Carmela - Buddy Edwards RN - 07/26/2020 12:30 AM CDT Problem: Pain Goal: Control of pain at or below patient's documented comfort goal Outcome: Progressing as expected Goal: Reduction in pain sensation Outcome: Progressing as expected Problem: Falls, Risk of Goal: Absence of falls Outcome: Progressing as expected Problem: Nausea/Vomiting Goal: Absence of nausea/vomiting Outcome: Progressing as expected Problem: Infection Risk Goal: Absence of infection Outcome: Progressing as expected rief Op Note - Farooq Hartman MD - 07/25/2020 4:10 PM CDT BRIEF OPERATIVE NOTE Date of Surgery: 07/25/2020 Surgeon(s) and Role: * Darren Chun MD - Primary * Farooq Hartman MD - Resident - Assisting Pre-Op Diagnosis: Crohn's disease of colon with complication [K50.119] SBO (small bowel obstruction) [K56.609] Post-Op Diagnosis Codes: * Crohn's disease of colon with complication [K50.119] * SBO (small bowel obstruction) [K56.609] Procedures: Procedure(s) (LRB): END ILEOSTOMY (N/A) Laparoscopic converted to open ILEOCECECTOMY (N/A) Mucous fistula CPT: [facility] CODING HELP Any Complications Encounters: none Estimated Blood Loss: 50 mL Specimens Removed: ID Type Source Tests Collected by Time Destination 1 : ILEOCECECTOMY Tissue ABDOMEN SURGICAL PATHOLOGY EXAM Darren Chun MD 07/25/2020 1708 * No implants in log * Patient's Condition: Extubated in OR and transferred to PACU in stable condition Findings: Upon entry into abdomen with Tsering technique noted bloody ascites and converted to open. Distal ileum necrotic and non-viable. Adhesion noted between sigmoid appendiceal epiploica and terminal ileum near ileocecal valve that caused volvulus and loss of blood supply. Cecum and appendix with inflammatory changes but viable and non-ischemic. Remainder of bowel normal in appearance from resected section to Ligament of Treitz. Any other important information: 45 cm distal ileum resected. Please see dictated operative report for additional detail. Farooq Hartman MD, MPH 07/25/2020 6:33 PM General Surgery Chief Resident PGY-5 Care Plan - April Headley RN - 07/25/2020 11:53 AM CDT Problem: Pain Goal: Control of pain at or below patient's documented comfort goal Outcome: Progressing as expected Goal: Reduction in pain sensation Outcome: Progressing as expected Problem: Falls, Risk of Goal: Absence of falls Outcome: Progressing as expected Problem: Nausea/Vomiting Goal: Absence of nausea/vomiting Outcome: Progressing as expected Problem: Infection Risk Goal: Absence of infection Outcome: Progressing as expected are Plan - Buddy Edwards RN - 07/25/2020 4:56 AM CDT Problem: Pain Goal: Control of pain at or below patient's documented comfort goal Outcome: Progressing as expected Goal: Reduction in pain sensation Outcome: Progressing as expected Problem: Falls, Risk of Goal: Absence of falls Outcome: Progressing as expected Problem: Nausea/Vomiting Goal: Absence of nausea/vomiting Outcome: Progressing as expected Problem: Infection Risk Goal: Absence of infection Outcome: Progressing as expected are Plan - Isaías Rodgers RN - 07/24/2020 2:42 PM CDT Problem: Pain Goal: Control of pain at or below patient's documented comfort goal Outcome: Progressing as expected Goal: Reduction in pain sensation Outcome: Progressing as expected Problem: Falls, Risk of Goal: Absence of falls Outcome: Progressing as expected Problem: Nausea/Vomiting Goal: Absence of nausea/vomiting Outcome: Progressing as expected Problem: Infection Risk Goal: Absence of infection Outcome: Progressing as expected ursing Note - Isaías Rodgers RN - 07/24/2020 2:41 PM CDTReceived patient in bed aox4. No distress noted, no family at bedside. POC discussed with patient. Call light in reach. Bed in low position. are Plan - Audrey Brito RN - 07/24/2020 3:07 AM CDT Problem: Pain Goal: Control of pain at or below patient's documented comfort goal Outcome: Progressing as expected Goal: Reduction in pain sensation Outcome: Progressing as expected Problem: Falls, Risk of Goal: Absence of falls Outcome: Progressing as expected Problem: Nausea/Vomiting Goal: Absence of nausea/vomiting Outcome: Progressing as expected Problem: Infection Risk Goal: Absence of infection Outcome: Progressing as expected D Nurse Note - Prashanth Shook RN - 07/23/2020 10:41 PM CDTReport given to [facility] transport to [place]. D Nurse Note - Prashanth Shook RN - 07/23/2020 9:44 PM CDTPt assisted to bathroom and back to bed. Pt resting HR 130's. Once back from bathroom HR 160's. Bolus started. D Nurse Note - Haven Sebastian PCT - 07/23/2020 9:43 PM CDTETA time has changed to 1 hour D Nurse Note - Haven Sebastian PCT - 07/23/2020 9:24 PM CDTCity [facility] ETA per Aimee 45 minutes D Nurse Note - Prashanth Shook RN - 07/23/2020 8:40 PM CDTSpoke with Makeda in [facility] to check status of the transfer. [facility] does not know anything about this patient. Then transferred to [facility] bed is assigned but pending housekeeping. D Nurse Note - Prashanth Shook RN - 07/23/2020 6:53 PM CDTPt to/from bathroom without incident. Pt c/o pain, requesting meds. D Nurse Note - Prashanth Shook RN - 07/23/2020 2:53 PM CDTPt in bed, was sleeping upon going into the room. Pt woke up, states pain 9/10, although she was sleeping. Pt has call light at her side. D Nurse Note - Mariposa Weeks RN - 07/23/2020 2:47 PM CDTReport given to Prashanth ZUÑIGA D Nurse Note - Mariposa Weeks RN - 07/23/2020 12:13 PM CDTOne IV attempt unsuccessful documented in this encounter Plan of Treatment Date Type Specialty Care Team Description 08/09/2020 Office Visit Colorectal Surgery Darren Chun MD [address] [facility] [address] [place] [address] [phone] Name Type Priority Associated Diagnoses Date/Ti me VBG+VCOOX+NA+K+GLU+CA2+ LAB Routine 07/16 5:48 PM CDT Name Type Priority Associated Diagnoses Order S chedule EKG-12 LEAD ROUTINE HEART STATION STAT ONCE fo r 1 Occurrences starting 2019 until 0 VBG+VCOOX+NA+K+GLU+ LAB Routine ONCE for 1 Occurrences CA2+ starting 2019 until 0 Health Maintenance Due Date Last Done Comments PNEUMOCOCCAL 0-64 YEARS COMBINED SERIES (1 1980 of 3 - PCV13) Depression Screening 1986 DTaP,Tdap,and Td Vaccines (1 - Tdap) 1993 PAP SMEAR 07/28/2014 07/28/2011 Breast Cancer Screening (MAMMOGRAM) 2014 INFLUENZA VACCINE (#1) 2020 COLON CANCER SCREENING ANNUAL FIT/FOBT 2024 , 01/05/2018 Colorectal Cancer Screening 2024 documented as of this encounter Procedures Procedure Name Priority Date/Time Associated Comments Diagnosis CBC WITH DIFF Routine 08/01/2020 3:47 Results fo r AM CDT this procedure are in the results section. BASIC METABOLIC PANEL Routine 08/01/2020 3:47 Re sults for (NA, K, CL, CO2, AM CDT this proced ure GLUCOSE, BUN, are in the CREATININE, CA) results section. MAGNESIUM Routine 08/01/2020 3:47 Results for AM CDT this procedure are in the results section. PHOSPHORUS Routine 08/01/2020 3:47 Results for AM CDT this procedure are in the results section. CBC WITH DIFF Routine 07/31/2020 5:06 Results fo r AM CDT this procedure are in the results section. BASIC METABOLIC PANEL Routine 07/31/2020 5:06 Re sults for (NA, K, CL, CO2, AM CDT this proced ure GLUCOSE, BUN, are in the CREATININE, CA) results section. MAGNESIUM Routine 07/31/2020 5:06 Results for AM CDT this procedure are in the results section. PHOSPHORUS Routine 07/31/2020 5:06 Results for AM CDT this procedure are in the results section. BASIC METABOLIC PANEL Routine 07/30/2020 4:29 Re sults for (NA, K, CL, CO2, AM CDT this proced ure GLUCOSE, BUN, are in the CREATININE, CA) results section. MAGNESIUM Routine 07/30/2020 4:29 Results for AM CDT this procedure are in the results section. PHOSPHORUS Routine 07/30/2020 4:29 Results for AM CDT this procedure are in the results section. EXTRA TUBE LT. GREEN Routine 07/29/2020 5:11 AM CDT EXTRA TUBE LT. BLUE Routine 07/29/2020 5:11 AM CDT FIBRINOGEN STAT 07/29/2020 5:11 Results for AM CDT this procedure are in the results section. ACTIVATED PARTIAL STAT 07/29/2020 5:11 Result s for THRMPLAS TIRSO AM CDT this procedure are in the results section. PROTHROMBIN TIME / STAT 07/29/2020 5:11 Resul ts for INR AM CDT this procedure are in the results section. CBC WITHOUT DIFF STAT 07/29/2020 5:11 Results for AM CDT this procedure are in the results section. BASIC METABOLIC PANEL STAT Add-On 07/29/2020 5:11 Re sults for (NA, K, CL, CO2, AM CDT this proced ure GLUCOSE, BUN, are in the CREATININE, CA) results section. XR KUB STAT 07/29/2020 4:55 SBO (small bowel Results for AM CDT obstruction) this procedure are in the results section. CBC WITHOUT DIFF Routine 07/28/2020 5:15 Results for AM CDT this procedure are in the results section. BASIC METABOLIC PANEL Routine 07/28/2020 4:47 Re sults for (NA, K, CL, CO2, AM CDT this proced ure GLUCOSE, BUN, are in the CREATININE, CA) results section. CBC WITHOUT DIFF Routine 07/27/2020 5:39 Results for AM CDT this procedure are in the results section. BASIC METABOLIC PANEL Routine 07/27/2020 5:39 Re sults for (NA, K, CL, CO2, AM CDT this proced ure GLUCOSE, BUN, are in the CREATININE, CA) results section. CBC WITHOUT DIFF Routine 07/26/2020 2:53 Results for AM CDT this procedure are in the results section. BASIC METABOLIC PANEL Routine 07/26/2020 2:53 Re sults for (NA, K, CL, CO2, AM CDT this proced ure GLUCOSE, BUN, are in the CREATININE, CA) results section. ACTIVATED PARTIAL Routine 07/25/2020 7:13 Result s for THRMPLAS TIRSO PM CDT this procedure are in the results section. PROTHROMBIN TIME / Routine 07/25/2020 7:13 Resul ts for INR PM CDT this procedure are in the results section. CBC WITHOUT DIFF Routine 07/25/2020 7:13 Results for PM CDT this procedure are in the results section. BASIC METABOLIC PANEL Routine 07/25/2020 7:13 Re sults for (NA, K, CL, CO2, PM CDT this proced ure GLUCOSE, BUN, are in the CREATININE, CA) results section. MAGNESIUM Routine 07/25/2020 7:13 Results for PM CDT this procedure are in the results section. SURGICAL PATHOLOGY STAT 07/25/2020 5:08 Resul ts for EXAM PM CDT this procedure are in the results section. ILEOCECECTOMY Level 4 (within 07/25/2020 3:18 Crohn's disease of 0-5 days) PM CDT colon with complication SBO (small bowel obstruction) ILEOSTOMY Level 4 (within 07/25/2020 3:18 Crohn's disease of 0-5 days) PM CDT colon with complication SBO (small bowel obstruction) CBC WITHOUT DIFF Routine 07/25/2020 6:35 Results for AM CDT this procedure are in the results section. BASIC METABOLIC PANEL Routine 07/25/2020 6:35 Re sults for (NA, K, CL, CO2, AM CDT this proced ure GLUCOSE, BUN, are in the CREATININE, CA) results section. ABORH CONFIRMATION Routine 07/24/2020 11:37 Resul ts for PM CDT this procedure are in the results section. HB ABO GROUPING LUISA 07/24/2020 11:12 Results for PM CDT this procedure are in the results section. CBC WITHOUT DIFF STAT 07/24/2020 2:34 Results for AM CDT this procedure are in the results section. BASIC METABOLIC PANEL STAT 07/24/2020 2:34 Re sults for (NA, K, CL, CO2, AM CDT this proced ure GLUCOSE, BUN, are in the CREATININE, CA) results section. XR ABDOMEN 1 VW STAT 07/24/2020 1:56 Small bowel Results for AM CDT obstruction this procedure are in the results section. EKG-12 LEAD Routine 07/24/2020 1:39 AM CDT COVID-19 (ID NOW STAT 07/23/2020 7:26 Abdominal pain, Resu lts for RAPID TESTING) PM CDT unspecified this procedur e abdominal location are in th e results section. LACTIC ACID WHOLE STAT 07/23/2020 7:24 Abdominal pain, Res ults for BLOOD PM CDT unspecified this procedure abdominal location are in th e results section. LACTIC ACID WHOLE STAT 07/23/2020 4:41 Abdominal pain, Res ults for BLOOD PM CDT unspecified this procedure abdominal location are in th e results section. BLOOD CULTURE SCREEN STAT 07/23/2020 4:41 Abdominal pain, Results for PM CDT unspecified this procedure abdominal location are in th e results section. BLOOD CULTURE SCREEN STAT 07/23/2020 4:41 Abdominal pain, Results for PM CDT unspecified this procedure abdominal location are in th e results section. CT ABDOMEN PELVIS W STAT 07/23/2020 3:56 Abdominal pain, R esults for CONTRAST PM CDT unspecified this procedure abdominal location are in th e results section. CBC WITH DIFF STAT 07/23/2020 2:31 Abdominal pain, Results for PM CDT unspecified this procedure abdominal location are in th e results section. BASIC METABOLIC PANEL STAT 07/23/2020 2:31 Abdominal pain, Results for (NA, K, CL, CO2, PM CDT unspecified this proced ure GLUCOSE, BUN, abdominal location are in t he CREATININE, CA) results section. HEPATIC FUNCTION STAT 07/23/2020 2:31 Abdominal pain, Resu lts for PANEL (77363) PM CDT unspecified this procedure (ALB,T.PRO,BILI abdominal location are in the T,BU/BC,ALT,AST,ALK results PHOS) section. LIPASE STAT 07/23/2020 2:31 Abdominal pain, Results for PM CDT unspecified this procedure abdominal location are in th e results section. URINALYSIS STAT 07/23/2020 2:19 Abdominal pain, Results for PM CDT unspecified this procedure abdominal location are in th e results section. NOTICE OF PRIVACY Routine 07/23/2020 11:48 PRACTICES AM CDT AGREEMENTS Routine 07/23/2020 12:01 AUTHORIZATIONS AND AM CDT IRREVOCABLE ASSIGNMENTS (FORM 2001) documented in this encounter Results PHOSPHORUS (08/01/2020 3:47 AM CDT) Pathologist Sig mPort PHOSPHORUS 3.0 2.5 - 5.0 mg/dL [facility] Specimen Blood - VENOUS Performing Organization Address City/[facility]/Zipcode Phone Number [facility] CLIA: [id number] [place] [address] [place] [address] MAGNESIUM (08/01/2020 3:47 AM CDT) Pathologist Sig mPort MAGNESIUM 1.9 1.7 - 2.4 mg/dL [facility] Specimen Blood - VENOUS Performing Organization Address [facility] Phone Number [facility] CLIA: [id number] [place] [address] [place] [address] BASIC METABOLIC PANEL (NA, K, CL, CO2, GLUCOSE, BUN, CREATININE, CA) (08/01/2020 3:47 AM CDT) Pathologist Sig nature NA 137 135 - 145 [facility] mmol/L SERVICES K 4.0 3.5 - 5.0 [facility] mmol/L SERVICES CL 100 98 - 108 mmol/L [facility] CO2 TOTAL 30 23 - 31 mmol/L [facility] AGAP 7 2 - 16 [facility] BUN 5 (L) 7 - 23 mg/dL [facility] GLUCOSE 139 (H) 70 - 110 mg/dL [facility] CREATININE 0.73 0.50 - 1.04 [facility] mg/dL SERVICES CALCIUM 9.3 8.6 - 10.6 [facility] mg/dL SERVICES eGFR Calculation 86.2 mL/min/1.73m2 [facility] (Non- SERVICES [place]) eGFR Calculation 104.5 mL/min/1.73m2 [facility] () SERVICES Specimen Blood - VENOUS Narrative Performed At Association of Glomerular Filtration Rate (GFR) and St aging [facility] of Kidney Disease* + + +------- ------ + | GFR (mL/min/1.73 m2) | With Kidney Damage | Wi thout Kidney Damage + + +------- ------ + | >90 | Stage one | Normal + + +------- ------ + | 60-89 | Stage two | Decreased GFR + + +------- ------ + | 30-59 | Stage three | Stage three + + +------- ------ + | 15-29 | Stage four | Stage four + + +------- ------ + | <15 (or dialysis) | Stage five | Stage five + + +------- ------ + *Each stage assumes the associated GFR level has been in effect for at least three months. Stages 1 to 5, wit h or without kidney disease, indicate chronic kidney disease. Notes: Determination of stages one and two (with eGFR >59mL/min/1.73 m2) requires estimation of kidney damag e for at least three months as defined by structural or func tional abnormalities of the kidney, manifested by either: Pathological abnormalities or Markers of kidney damage (including abnormalities in the composition of the blo od or urine or abnormalities in imaging tests) . Performing Organization Address City/State/Zipcode Phone Number [facility] CLIA: [id number] [place], [place] [id number] [address] [place] [address] CBC WITH DIFF (08/01/2020 3:47 AM CDT) Pathologist Sig nature WBC 13.29 (H) 4.30 - 11.10 [facility] 10*3/L SERVICES RBC 2.88 (L) 3.93 - 5.25 [facility] 10*6/L SERVICES HGB 9.1 (L) 11.6 - 15.0 [facility] g/dL SERVICES HCT 27.9 (L) 35.7 - 45.2 % [facility] MCV 96.9 (H) 80.6 - 95.5 fL [facility] MCH 31.6 25.9 - 32.8 pg [facility] MCHC 32.6 31.6 - 35.1 [facility] g/dL SERVICES RDW-SD 45.2 39.0 - 49.9 fL [facility] RDW-CV 12.9 12.0 - 15.5 % [facility] PLT 490 (H) 166 - 358 [facility] 10*3/L SERVICES MPV 9.8 9.5 - 12.9 fL [facility] NRBC/100 WBC 0.0 0.0 - 10.0 /100 [facility] WBCs SERVICES NRBC x10^3 <0.01 10*3/L [facility] GRAN MAT (NEUT) % 64.8 % [facility] IMM GRAN % 2.10 % [facility] LYMPH % 21.9 % [facility] MONO % 9.0 % [facility] EOS % 1.9 % [facility] BASO % 0.3 % [facility] GRAN MAT x10^3(ANC) 8.61 (H) 1.88 - 7.09 [facility] 10*3/uL SERVICES IMM GRAN x10^3 0.28 (H) 0.00 - 0.06 [facility] 10*3/uL SERVICES LYMPH x10^3 2.91 1.32 - 3.29 [facility] 10*3/uL SERVICES MONO x10^3 1.20 (H) 0.33 - 0.92 [facility] 10*3/uL SERVICES EOS x10^3 0.25 0.03 - 0.39 [facility] 10*3/uL SERVICES BASO x10^3 0.04 0.01 - 0.07 [facility] 10*3/uL SERVICES REACT LYMPHS Rare [facility] Specimen Blood - VENOUS Performing Organization Address City/[facility]/Zipcode Phone Number [facility] CLIA: [id number] [place] [address] [place] [address] PHOSPHORUS (07/31/2020 5:06 AM CDT) Pathologist Sig nature PHOSPHORUS 3.8 2.5 - 5.0 mg/dL [facility] Specimen Blood - ARM, RIGHT Performing Organization Address City/[facility] Phone Number [facility] CLIA: [id number] [place] [address] [place] [address] MAGNESIUM (07/31/2020 5:06 AM CDT) Pathologist Sig nature MAGNESIUM 1.2 (L) 1.7 - 2.4 mg/dL [facility] Specimen Blood - ARM, RIGHT Performing Organization Address City/[facility] Phone Number [facility] CLIA: [id number] [place] [address] [place] [address] BASIC METABOLIC PANEL (NA, K, CL, CO2, GLUCOSE, BUN, CREATININE, CA) (07/31/2020 5:06 AM CDT) Pathologist Sig nature NA 135 135 - 145 [facility] mmol/L SERVICES K 3.8 3.5 - 5.0 [facility] mmol/L SERVICES CL 101 98 - 108 mmol/L [facility] CO2 TOTAL 27 23 - 31 mmol/L [facility] AGAP 7 2 - 16 [facility] BUN 2 (L) 7 - 23 mg/dL [facility] GLUCOSE 132 (H) 70 - 110 mg/dL [facility] CREATININE 0.72 0.50 - 1.04 [facility] mg/dL SERVICES CALCIUM 8.4 (L) 8.6 - 10.6 [facility] mg/dL SERVICES eGFR Calculation 87.6 mL/min/1.73m2 [facility] (Non- SERVICES [place]) eGFR Calculation 106.2 mL/min/1.73m2 [facility] () SERVICES Specimen Blood - ARM, RIGHT Narrative Performed At Association of Glomerular Filtration Rate (GFR) and St aging [facility] of Kidney Disease* + + +------- ------ + | GFR (mL/min/1.73 m2) | With Kidney Damage | Wi thout Kidney Damage + + +------- ------ + | >90 | Stage one | Normal + + +------- ------ + | 60-89 | Stage two | Decreased GFR + + +------- ------ + | 30-59 | Stage three | Stage three + + +------- ------ + | 15-29 | Stage four | Stage four + + +------- ------ + | <15 (or dialysis) | Stage five | Stage five + + +------- ------ + *Each stage assumes the associated GFR level has been in effect for at least three months. Stages 1 to 5, wit h or without kidney disease, indicate chronic kidney disease. Notes: Determination of stages one and two (with eGFR >59mL/min/1.73 m2) requires estimation of kidney damag e for at least three months as defined by structural or func tional abnormalities of the kidney, manifested by either: Pathological abnormalities or Markers of kidney damage (including abnormalities in the composition of the blo od or urine or abnormalities in imaging tests) . Performing Organization Address City/State/Zipcode Phone Number [facility] CLIA: [id number] [place] [address] [place] [address] CBC WITH DIFF (07/31/2020 5:06 AM CDT) Pathologist Romeo martinez WBC 10.18 4.30 - 11.10 [facility] 10*3/L SERVICES RBC 3.01 (L) 3.93 - 5.25 [facility] 10*6/L SERVICES HGB 9.5 (L) 11.6 - 15.0 [facility] g/dL SERVICES HCT 29.1 (L) 35.7 - 45.2 % [facility] MCV 96.7 (H) 80.6 - 95.5 fL [facility] MCH 31.6 25.9 - 32.8 pg [facility] MCHC 32.6 31.6 - 35.1 [facility] g/dL SERVICES RDW-SD 45.4 39.0 - 49.9 fL [facility] RDW-CV 12.8 12.0 - 15.5 % [facility] PLT 414 (H) 166 - 358 [facility] 10*3/L SERVICES MPV 9.7 9.5 - 12.9 fL [facility] NRBC/100 WBC 0.0 0.0 - 10.0 /100 [facility] WBCs SERVICES NRBC x10^3 <0.01 10*3/L [facility] GRAN MAT (NEUT) % 42.8 % [facility] IMM GRAN % 5.50 % [facility] LYMPH % 36.7 % [facility] MONO % 11.8 % [facility] EOS % 2.8 % [facility] BASO % 0.4 % [facility] GRAN MAT x10^3(ANC) 4.35 1.88 - 7.09 [facility] 10*3/uL SERVICES IMM GRAN x10^3 0.56 (H) 0.00 - 0.06 [facility] 10*3/uL SERVICES LYMPH x10^3 3.74 (H) 1.32 - 3.29 [facility] 10*3/uL SERVICES MONO x10^3 1.20 (H) 0.33 - 0.92 [facility] 10*3/uL SERVICES EOS x10^3 0.29 0.03 - 0.39 [facility] 10*3/uL SERVICES BASO x10^3 0.04 0.01 - 0.07 [facility] 10*3/uL SERVICES REACT LYMPHS Rare [facility] Specimen Blood - ARM, RIGHT Performing Organization Address City/State/Zipcode Phone Number [facility] CLIA: [id number] [place] [address] [place] [address] Blvd PHOSPHORUS (07/30/2020 4:29 AM CDT) Pathologist Sig nature PHOSPHORUS 3.6 2.5 - 5.0 mg/dL [facility] Specimen Blood - ARM, LEFT Performing Organization Address [facility]/Zipcode Phone Number [facility] CLIA: [id number] [place] [address] [place] [address] MAGNESIUM (07/30/2020 4:29 AM CDT) Pathologist Sig nature MAGNESIUM 1.4 (L) 1.7 - 2.4 mg/dL [facility] Specimen Blood - ARM, LEFT Performing Organization Address [facility] Phone Number [facility] CLIA: [id number] [place] [address] [place] [address] BASIC METABOLIC PANEL (NA, K, CL, CO2, GLUCOSE, BUN, CREATININE, CA) (07/30/2020 4:29 AM CDT) NA 136 135 - 145 [facility] mmol/L SERVICES K 3.8Comment: 3.5 - 5.0 [facility] Slight hemolysis mmol/L SERVICES CL 102 98 - 108 [facility] mmol/L SERVICES CO2 TOTAL 25 23 - 31 [facility] mmol/L SERVICES AGAP 9 2 - 16 [facility] BUN 2 (L)Comment: 7 - 23 mg/dL [facility] Slight hemolysis SERVICES GLUCOSE 182 (H) 70 - 110 [facility] mg/dL SERVICES CREATININE 0.68 0.50 - 1.04 [facility] mg/dL SERVICES CALCIUM 9.0 8.6 - 10.6 [facility] mg/dL SERVICES eGFR Calculation 93.6 mL/min/1.73m2 [facility] (Non- SERVICES [place]) eGFR Calculation 113.4 mL/min/1.73m2 [facility] () SERVICES Specimen Blood - ARM, LEFT Narrative Performed At Association of Glomerular Filtration Rate (GFR) and St aging [facility] of Kidney Disease* + + +------- ------ + | GFR (mL/min/1.73 m2) | With Kidney Damage | Wi thout Kidney Damage + + +------- ------ + | >90 | Stage one | Normal + + +------- ------ + | 60-89 | Stage two | Decreased GFR + + +------- ------ + | 30-59 | Stage three | Stage three + + +------- ------ + | 15-29 | Stage four | Stage four + + +------- ------ + | <15 (or dialysis) | Stage five | Stage five + + +------- ------ + *Each stage assumes the associated GFR level has been in effect for at least three months. Stages 1 to 5, wit h or without kidney disease, indicate chronic kidney disease. Notes: Determination of stages one and two (with eGFR >59mL/min/1.73 m2) requires estimation of kidney damag e for at least three months as defined by structural or func tional abnormalities of the kidney, manifested by either: Pathological abnormalities or Markers of kidney damage (including abnormalities in the composition of the blo od or urine or abnormalities in imaging tests) . Performing Organization Address City/State/Zipcode Phone Number [facility] CLIA: [id number] [place] [address] [place] [address] BASIC METABOLIC PANEL (NA, K, CL, CO2, GLUCOSE, BUN, CREATININE, CA) (07/29/2020 5:11 AM CDT) [facility] NA 137 135 - 145 [facility] mmol/L SERVICES K 3.4 (L) 3.5 - 5.0 [facility] mmol/L SERVICES CL 102 98 - 108 mmol/L [facility] SERVICES CO2 TOTAL 31 23 - 31 mmol/L [facility] SERVICES AGAP 4 2 - 16 [facility] BUN 3 (L) 7 - 23 mg/dL [facility] SERVICES GLUCOSE 118 (H) 70 - 110 mg/dL [facility] CREATININE 0.81 0.50 - 1.04 [facility] mg/dL SERVICES CALCIUM 9.4 8.6 - 10.6 [facility] mg/dL SERVICES eGFR Calculation 76.5 mL/min/1.73m2 [facility] (Non- SERVICES [place]) eGFR Calculation 92.7 mL/min/1.73m2 [facility] () SERVICES Specimen Blood Narrative Performed At Association of Glomerular Filtration Rate (GFR) and St aging [facility] of Kidney Disease* + + +------- ------ + | GFR (mL/min/1.73 m2) | With Kidney Damage | Wi thout Kidney Damage + + +------- ------ + | >90 | Stage one | Normal + + +------- ------ + | 60-89 | Stage two | Decreased GFR + + +------- ------ + | 30-59 | Stage three | Stage three + + +------- ------ + | 15-29 | Stage four | Stage four + + +------- ------ + | <15 (or dialysis) | Stage five | Stage five + + +------- ------ + *Each stage assumes the associated GFR level has been in effect for at least three months. Stages 1 to 5, wit h or without kidney disease, indicate chronic kidney disease. Notes: Determination of stages one and two (with eGFR >59mL/min/1.73 m2) requires estimation of kidney damag e for at least three months as defined by structural or func tional abnormalities of the kidney, manifested by either: Pathological abnormalities or Markers of kidney damage (including abnormalities in the composition of the blo od or urine or abnormalities in imaging tests) . Performing Organization Address City/[facility] Phone Number [facility] CLIA: [id number] [place] [address] [address] [facility] EXTRA TUBE LT. BLUE (07/29/2020 5:11 AM CDT) Specimen Blood Performing Organization Address [facility] Phone Number [facility] CLIA: [id number] [place] [address] [address] [facility] EXTRA TUBE LT. GREEN (07/29/2020 5:11 AM CDT) Specimen Blood Performing Organization Address [facility] Phone Number [facility] CLIA: [id number] [place] [address] [address] [facility] FIBRINOGEN (07/29/2020 5:11 AM CDT) Pathologist Sig nature Fibrinogen 1,089 (H) 167 - 453 mg/dL [facility] Specimen Blood - ARM, RIGHT Performing Organization Address [facility] – [place] Phone Number [facility] CLIA: [id number] [place] [address] 301 [facility] PROTHROMBIN TIME / INR (07/29/2020 5:11 AM CDT) PROTIME PATIENT 11.4 10.1 - 12.6 [facility] Seconds SERVICES INR 1.0Comment: Normal [facility] INR <1.1; Warfarin SERVICES Therapeutic range 2.0 to 3.0 or 2.5 to 3.5, depending upon the indications. Specimen Blood - ARM, RIGHT Performing Organization Address [facility] [place] Phone Number [facility] CLIA: [id number] [place] [address] 301 [facility] aPTT (07/29/2020 5:11 AM CDT) Pathologist Sig nature APTT Patient 30 26 - 36 Seconds [facility] Specimen Blood - ARM, RIGHT Performing Organization Address City/[facility] Phone Number [facility] CLIA: [id number] [place] [address] [place] [address] CBC WITHOUT DIFF (07/29/2020 5:11 AM CDT) Pathologist Sig nature WBC 6.45 4.30 - 11.10 [facility] 10*3/L SERVICES RBC 3.36 (L) 3.93 - 5.25 [facility] 10*6/L SERVICES HGB 10.7 (L) 11.6 - 15.0 g/dL [facility] HCT 32.6 (L) 35.7 - 45.2 % [facility] MCH 31.8 25.9 - 32.8 pg [facility] MCV 97.0 (H) 80.6 - 95.5 fL [facility] MCHC 32.8 31.6 - 35.1 g/dL [facility] PLT 328 166 - 358 10*3/L [facility] MPV 10.0 9.5 - 12.9 fL [facility] RDW-CV 12.0 12.0 - 15.5 % [facility] RDW-SD 43.2 39.0 - 49.9 fL [facility] NRBC x10^3 <0.01 10*3/L [facility] NRBC/100 WBC 0.0 0.0 - 10.0 /100 [facility] WBCs SERVICES IPF % [facility] Specimen Blood - ARM, RIGHT Performing Organization Address City/[facility]/Zipcode Phone Number [facility] CLIA: [id number] [place] [address] [place] [address] XR KUB (07/29/2020 4:55 AM CDT) Specimen Narrative Performed At EXAM: XR KUB 07/29/2020 4:42 AM. 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 COMPARISON: CT AP W, 07/23/2020. TECHNIQUE: Frontal radiographs of the ab domen and pelvis, 4 images. FINDINGS: The tip of a surgical drain projects ove r right hemipelvis. A dilated loop of the small bowel projects over the LL Q, 4.9 cm, suspicious for incomplete small bowel obstruction. A long row of vertical surgical sutures lies to the left of the spine. Preliminary Report Dictated by Resident: Neda John I reviewed this study and agree with minor modificatio ns (no call needed to the referring physician). IShahriar MD., have reviewe d this study and agree with the above report. Procedure Note [facility], Radiant Results Inft User - 2019 9:02 AM CDT EXAM: XR KUB 07/29/2020 4:42 AM. 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 COMPARISON: CT AP W, 07/23/2020. TECHNIQUE: Frontal radiographs of the ab domen and pelvis, 4 images. FINDINGS: The tip of a surgical drain projects ove r right hemipelvis. A dilated loop of the small bowel projec ts over the LLQ, 4.9 cm, suspicious for incomplete small bowel obstruction. A long row of vertical surgical sutures lies to the left of the spine. Preliminary Report Dictated by Resident: Neda John I reviewed this study and agree with min or modifications (no call needed to the referring physician). Shahriar Caban MD., have reviewe d this study and agree with the above report. Performing Organization Address City/State/Zipcode Phone Number PACS/VR/DOSE CBC WITHOUT DIFF (07/28/2020 5:15 AM CDT) Pathologist Sig nature WBC 8.27 4.30 - 11.10 [facility] 10*3/L SERVICES RBC 2.69 (L) 3.93 - 5.25 [facility] 10*6/L SERVICES HGB 8.7 (L) 11.6 - 15.0 g/dL [facility] HCT 26.0 (L) 35.7 - 45.2 % [facility] MCH 32.3 25.9 - 32.8 pg [facility] MCV 96.7 (H) 80.6 - 95.5 fL [facility] MCHC 33.5 31.6 - 35.1 g/dL [facility] PLT 231 166 - 358 10*3/L [facility] MPV 10.0 9.5 - 12.9 fL [facility] RDW-CV 12.0 12.0 - 15.5 % [facility] RDW-SD 42.5 39.0 - 49.9 fL [facility] NRBC x10^3 <0.01 10*3/L [facility] NRBC/100 WBC 0.0 0.0 - 10.0 /100 [facility] WBCs SERVICES IPF % [facility] Specimen Blood - VENOUS Performing Organization Address City/State/Zipcode Phone Number [facility] CLIA: [id number] [place], [place] [address] [place] [address] BASIC METABOLIC PANEL (NA, K, CL, CO2, GLUCOSE, BUN, CREATININE, CA) (07/28/2020 4:47 AM CDT) Pathologist Sig nature NA 135 135 - 145 [facility] mmol/L SERVICES K 3.6 3.5 - 5.0 [facility] mmol/L SERVICES CL 105 98 - 108 mmol/L [facility] CO2 TOTAL 24 23 - 31 mmol/L [facility] AGAP 6 2 - 16 [facility] BUN 3 (L) 7 - 23 mg/dL [facility] GLUCOSE 132 (H) 70 - 110 mg/dL [facility] CREATININE 0.68 0.50 - 1.04 [facility] mg/dL SERVICES CALCIUM 8.6 8.6 - 10.6 [facility] mg/dL SERVICES eGFR Calculation 93.6 mL/min/1.73m2 [facility] (Non- SERVICES [place]) eGFR Calculation 113.4 mL/min/1.73m2 [facility] () SERVICES Specimen Blood - WRIST, LEFT Narrative Performed At Association of Glomerular Filtration Rate (GFR) and St aging [facility] of Kidney Disease* + + +------- ------ + | GFR (mL/min/1.73 m2) | With Kidney Damage | Wi thout Kidney Damage + + +------- ------ + | >90 | Stage one | Normal + + +------- ------ + | 60-89 | Stage two | Decreased GFR + + +------- ------ + | 30-59 | Stage three | Stage three + + +------- ------ + | 15-29 | Stage four | Stage four + + +------- ------ + | <15 (or dialysis) | Stage five | Stage five + + +------- ------ + *Each stage assumes the associated GFR level has been in effect for at least three months. Stages 1 to 5, wit h or without kidney disease, indicate chronic kidney disease. Notes: Determination of stages one and two (with eGFR >59mL/min/1.73 m2) requires estimation of kidney damag e for at least three months as defined by structural or func tional abnormalities of the kidney, manifested by either: Pathological abnormalities or Markers of kidney damage (including abnormalities in the composition of the blo od or urine or abnormalities in imaging tests) . Performing Organization Address City/State/Zipcode Phone Number [facility] CLIA: [id number] [place] [address] [place] [address] BASIC METABOLIC PANEL (NA, K, CL, CO2, GLUCOSE, BUN, CREATININE, CA) (07/27/2020 5:39 AM CDT) [facility] NA 134 (L) 135 - 145 [facility] mmol/L SERVICES K 3.7 3.5 - 5.0 [facility] mmol/L SERVICES CL 104 98 - 108 mmol/L [facility] CO2 TOTAL 29 23 - 31 mmol/L [facility] AGAP 1 (L) 2 - 16 [facility] BUN 7 7 - 23 mg/dL [facility] GLUCOSE 169 (H) 70 - 110 mg/dL [facility] CREATININE 0.63 0.50 - 1.04 [facility] mg/dL SERVICES CALCIUM 8.3 (L) 8.6 - 10.6 [facility] mg/dL SERVICES eGFR Calculation 102.2 mL/min/1.73m2 [facility] (Non- SERVICES [place]) eGFR Calculation 123.9 mL/min/1.73m2 [facility] () SERVICES Specimen Blood - LINE, VENOUS Narrative Performed At Association of Glomerular Filtration Rate (GFR) and St aging [facility] of Kidney Disease* + + +------- ------ + | GFR (mL/min/1.73 m2) | With Kidney Damage | Wi thout Kidney Damage + + +------- ------ + | >90 | Stage one | Normal + + +------- ------ + | 60-89 | Stage two | Decreased GFR + + +------- ------ + | 30-59 | Stage three | Stage three + + +------- ------ + | 15-29 | Stage four | Stage four + + +------- ------ + | <15 (or dialysis) | Stage five | Stage five + + +------- ------ + *Each stage assumes the associated GFR level has been in effect for at least three months. Stages 1 to 5, wit h or without kidney disease, indicate chronic kidney disease. Notes: Determination of stages one and two (with eGFR >59mL/min/1.73 m2) requires estimation of kidney damag e for at least three months as defined by structural or func tional abnormalities of the kidney, manifested by either: Pathological abnormalities or Markers of kidney damage (including abnormalities in the composition of the blo od or urine or abnormalities in imaging tests) . Performing Organization Address City/State/Zipcode Phone Number [facility] CLIA: [id number] [place] [address] [place] [address] CBC WITHOUT DIFF (07/27/2020 5:39 AM CDT) Pathologist Sig nature WBC 11.87 (H) 4.30 - 11.10 [facility] 10*3/L SERVICES RBC 2.61 (L) 3.93 - 5.25 [facility] 10*6/L SERVICES HGB 8.4 (L) 11.6 - 15.0 g/dL [facility] HCT 25.8 (L) 35.7 - 45.2 % [facility] MCH 32.2 25.9 - 32.8 pg [facility] MCV 98.9 (H) 80.6 - 95.5 fL [facility] MCHC 32.6 31.6 - 35.1 g/dL [facility] PLT 190 166 - 358 10*3/L [facility] MPV 10.8 9.5 - 12.9 fL [facility] RDW-CV 11.9 (L) 12.0 - 15.5 % [facility] RDW-SD 43.5 39.0 - 49.9 fL [facility] NRBC x10^3 <0.01 10*3/L [facility] NRBC/100 WBC 0.0 0.0 - 10.0 /100 [facility] WBCs SERVICES IPF % [facility] Specimen Blood - LINE, VENOUS Performing Organization Address City/State/Zipcode Phone Number [facility] CLIA: [id number] [place] [address] [place] [address] BASIC METABOLIC PANEL (NA, K, CL, CO2, GLUCOSE, BUN, CREATININE, CA) (07/26/2020 2:53 AM CDT) [facility] nature NA 136 135 - 145 [facility] mmol/L SERVICES K 3.9 3.5 - 5.0 [facility] mmol/L SERVICES CL 104 98 - 108 mmol/L [facility] SERVICES CO2 TOTAL 28 23 - 31 mmol/L [facility] AGAP 4 2 - 16 [facility] BUN 11 7 - 23 mg/dL [facility] GLUCOSE 136 (H) 70 - 110 mg/dL [facility] CREATININE 0.84 0.50 - 1.04 [facility] mg/dL SERVICES CALCIUM 8.2 (L) 8.6 - 10.6 [facility] mg/dL SERVICES eGFR Calculation 73.3 mL/min/1.73m2 [facility] (Non- SERVICES [place]) eGFR Calculation 88.9 mL/min/1.73m2 [facility] () SERVICES Specimen Blood - LINE, VENOUS Narrative Performed At Association of Glomerular Filtration Rate (GFR) and St aging [facility] of Kidney Disease* + + +------- ------ + | GFR (mL/min/1.73 m2) | With Kidney Damage | Wi thout Kidney Damage + + +------- ------ + | >90 | Stage one | Normal + + +------- ------ + | 60-89 | Stage two | Decreased GFR + + +------- ------ + | 30-59 | Stage three | Stage three + + +------- ------ + | 15-29 | Stage four | Stage four + + +------- ------ + | <15 (or dialysis) | Stage five | Stage five + + +------- ------ + *Each stage assumes the associated GFR level has been in effect for at least three months. Stages 1 to 5, wit h or without kidney disease, indicate chronic kidney disease. Notes: Determination of stages one and two (with eGFR >59mL/min/1.73 m2) requires estimation of kidney damag e for at least three months as defined by structural or func tional abnormalities of the kidney, manifested by either: Pathological abnormalities or Markers of kidney damage (including abnormalities in the composition of the blo od or urine or abnormalities in imaging tests) . Performing Organization Address City/State/Zipcode Phone Number [facility] CLIA: [id number] [place] [address] [place] [address] CBC WITHOUT DIFF (07/26/2020 2:53 AM CDT) Pathologist Sig nature WBC 10.18 4.30 - 11.10 [facility] 10*3/L SERVICES RBC 2.82 (L) 3.93 - 5.25 [facility] 10*6/L SERVICES HGB 9.2 (L) 11.6 - 15.0 g/dL [facility] HCT 27.5 (L) 35.7 - 45.2 % [facility] MCH 32.6 25.9 - 32.8 pg [facility] MCV 97.5 (H) 80.6 - 95.5 fL [facility] MCHC 33.5 31.6 - 35.1 g/dL [facility] PLT 144 (L) 166 - 358 10*3/L [facility] MPV 11.0 9.5 - 12.9 fL [facility] RDW-CV 11.8 (L) 12.0 - 15.5 % [facility] RDW-SD 42.4 39.0 - 49.9 fL [facility] NRBC x10^3 <0.01 10*3/L [facility] NRBC/100 WBC 0.0 0.0 - 10.0 /100 [facility] WBCs SERVICES IPF % [facility] Specimen Blood - LINE, VENOUS Performing Organization Address City/State/Zipcode Phone Number [facility] CLIA: [id number] [place] [address] [place] [address] aPTT (07/25/2020 7:13 PM CDT) Pathologist Sig nature APTT Patient 31 26 - 36 Seconds [facility] Specimen Blood - VENOUS Performing Organization Address City/State/Zipcode Phone Number [facility] CLIA: [id number] [place] [address] [place] [address] PROTHROMBIN TIME / INR (07/25/2020 7:13 PM CDT) PROTIME PATIENT 17.7 (H) 10.1 - 12.6 [facility] Seconds SERVICES INR 1.5Comment: Normal [facility] INR <1.1; Warfarin SERVICES Therapeutic range 2.0 to 3.0 or 2.5 to 3.5, depending upon the indications. Specimen Blood - VENOUS Performing Organization Address City/[facility]/Zipcode Phone Number [facility] CLIA: [id number] [place] [address] [phone] 301 [facility] MAGNESIUM (07/25/2020 7:13 PM CDT) Pathologist Sig nature MAGNESIUM 1.5 (L) 1.7 - 2.4 mg/dL [facility] Specimen Blood - VENOUS Performing Organization Address [facility]/Zipcode Phone Number [facility] CLIA: [id number] [place] [address] [phone] 301 [facility] BASIC METABOLIC PANEL (NA, K, CL, CO2, GLUCOSE, BUN, CREATININE, CA) (07/25/2020 7:13 PM CDT) Pathologist Sig nature NA 137 135 - 145 [facility] mmol/L SERVICES K 4.5 3.5 - 5.0 [facility] mmol/L SERVICES CL 102 98 - 108 mmol/L [facility] SERVICES CO2 TOTAL 28 23 - 31 mmol/L [facility] SERVICES AGAP 7 2 - 16 [facility] BUN 13 7 - 23 mg/dL [facility] SERVICES GLUCOSE 165 (H) 70 - 110 mg/dL [facility] SERVICES CREATININE 0.92 0.50 - 1.04 [facility] mg/dL SERVICES CALCIUM 8.5 (L) 8.6 - 10.6 [facility] mg/dL SERVICES eGFR Calculation 66.0 mL/min/1.73m2 [facility] (Non- SERVICES [place]) eGFR Calculation 80.0 mL/min/1.73m2 [facility] () SERVICES Specimen Blood - VENOUS Narrative Performed At Association of Glomerular Filtration Rate (GFR) and St aging [facility] of Kidney Disease* + + +------- ------ + | GFR (mL/min/1.73 m2) | With Kidney Damage | Wi thout Kidney Damage + + +------- ------ + | >90 | Stage one | Normal + + +------- ------ + | 60-89 | Stage two | Decreased GFR + + +------- ------ + | 30-59 | Stage three | Stage three + + +------- ------ + | 15-29 | Stage four | Stage four + + +------- ------ + | <15 (or dialysis) | Stage five | Stage five + + +------- ------ + *Each stage assumes the associated GFR level has been in effect for at least three months. Stages 1 to 5, wit h or without kidney disease, indicate chronic kidney disease. Notes: Determination of stages one and two (with eGFR >59mL/min/1.73 m2) requires estimation of kidney damag e for at least three months as defined by structural or func tional abnormalities of the kidney, manifested by either: Pathological abnormalities or Markers of kidney damage (including abnormalities in the composition of the blo od or urine or abnormalities in imaging tests) . Performing Organization Address City/State/Zipcode Phone Number [facility] CLIA: [id number] [place] [address] [phone] 301 [facility] CBC WITHOUT DIFF (07/25/2020 7:13 PM CDT) Pathologist Sig nature WBC 13.55 (H) 4.30 - 11.10 [facility] 10*3/L SERVICES RBC 3.40 (L) 3.93 - 5.25 [facility] 10*6/L SERVICES HGB 10.9 (L) 11.6 - 15.0 g/dL [facility] HCT 33.9 (L) 35.7 - 45.2 % [facility] MCH 32.1 25.9 - 32.8 pg [facility] MCV 99.7 (H) 80.6 - 95.5 fL [facility] MCHC 32.2 31.6 - 35.1 g/dL [facility] PLT 169 166 - 358 10*3/L [facility] MPV 10.8 9.5 - 12.9 fL [facility] RDW-CV 12.0 12.0 - 15.5 % [facility] RDW-SD 44.0 39.0 - 49.9 fL [facility] NRBC x10^3 <0.01 10*3/L [facility] NRBC/100 WBC 0.0 0.0 - 10.0 /100 [facility] WBCs SERVICES IPF % [facility] Specimen Blood - VENOUS Performing Organization Address City/State/Zipcode Phone Number [facility] CLIA: [id number] [place] [address] [phone] 301 [facility] SURGICAL PATHOLOGY EXAM (07/25/2020 5:08 PM CDT) Case Report Surgical Pathology Case: [id number] [facility] Authorizing Provider: Darren Walter MD Collected: 07/25/2020 1708 SERVICES Ordering Location: [facility] OR Received: 07/26/2020 0914 Department Pathologist: Deniz Joseph MD PHD Specimen: ABDOMEN, ILEO CECECTOMY Final Diagnosis [facility] Samantha Beavers SMALL INTESTINE AND PARTIAL CECUM, ILEOCECECTOMY: SERVICES signed by Opal, - SEGMENTAL SMALL INTEST INE ISCHEMIC NECROSIS WITH TRANSMURAL INVOLVEMENT, MD Deniz PHD on SECONDARY TO FIBROTIC ADHESION AND SMALL BOWEL OBSTRUCTION 07/30/2020 at 10:48 - SEVERE VENOUS CONGESTION WITH SUBMUCOSAL AND TRA NSMURAL HEMORRHAGE AM - NO EVIDENCE OF ACTIVE CROHN'S DISEASE - SURGICAL MARGINS ARE VIABLE - NO MALIGNANCY IDENTIFIED - APPENDIX WITH SEROSITIS Mabel Garcia MD 07/29/2020 I have personally reviewed a ll specimens/slides and agree with all statements made by residents, fellows or pathologist assistants whose name(s) may appear on this report. Clinical Crohn's disease of [facility] Information colon with SERVICES complication [K50.119]SBO (small bowel obstruction) [K56.609] Gross Description Specimen A is received in [facility] labeled with the patient's name, number, "abdomen, ileocecectomy" and consists of a small bowel segment (66.8 cm in length x diameter ranging from 2.8 - 3.3 cm) wit [facility] h attached appendix (7.8 cm in length x 0.7 cm in diameter) and proximal cecum. The serosa is predominately dark-red to waller-black, hemorrhagic and grossly dilated throughout it's length with viable ino SERVICES earing proximal and distal m argins. The specimen is opened anti-mesenterically to reveal hemorrhagic luminal contents with a dark-brown flattened mucosa (average wall thickness 0.2 cm). There are multip le sessile ovalle polypoid nodu les (0.1 cm in greatest dimension) located at the distal ileum. No perforations are grossly identified. The appendix has an attached yellow-brown ragged mesoappendix (6.0 x 1.7 cm) and a ovalle-pink smooth serosa with areas of multifocal congestion. The appendix is serially sectioned to reveal ovalle homogenous cut surfaces with a lumen ( luminal diameter 0.2 - 0.3 cm) filled with brown fecal material. Wall thickness ranges from 0.2 - 0.4 cm. Waste Transportation Technician sections are submitted in A1-A10. Section code: A1-A2: proximal ileum margin, en face A3: distal cecal margin, sales representative printing paper A4: ileocecal valve, sales representative printing paper A5: sales representative printing paper sections of wall to include sessile polyps A6-A9: sales representative printing paper sectio ns of wall, submitted sequentially from proximal to distal A10: sections of appendix to include appendiceal orifice (inked blue), sales representative printing paper cross sections and entire bisected tip Chad AWAD Student Christiano Bermudez MD (Pathologists' Cartoon Artist) Embedded Images [facility] SERVICES Specimen Tissue - ABDOMEN Performing Organization Address City/State/Zipcode Phone Number [facility] CLIA: [id number] [place] [address] [place] [address] BASIC METABOLIC PANEL (NA, K, CL, CO2, GLUCOSE, BUN, CREATININE, CA) (07/25/2020 6:35 AM CDT) Pathologist Sig nature NA 137 135 - 145 [facility] mmol/L SERVICES K 4.0 3.5 - 5.0 [facility] mmol/L SERVICES CL 104 98 - 108 mmol/L [facility] SERVICES CO2 TOTAL 28 23 - 31 mmol/L [facility] SERVICES AGAP 5 2 - 16 [facility] SERVICES BUN 13 7 - 23 mg/dL [facility] SERVICES GLUCOSE 207 (H) 70 - 110 mg/dL [facility] SERVICES CREATININE 0.79 0.50 - 1.04 [facility] mg/dL SERVICES CALCIUM 8.5 (L) 8.6 - 10.6 [facility] mg/dL SERVICES eGFR Calculation 78.7 mL/min/1.73m2 [facility] (Non- SERVICES [place]) eGFR Calculation 95.4 mL/min/1.73m2 [facility] () SERVICES Specimen Blood - VENOUS Narrative Performed At Association of Glomerular Filtration Rate (GFR) and St aging [facility] SERVICES of Kidney Disease* + + +------- ------ + | GFR (mL/min/1.73 m2) | With Kidney Damage | Wi thout Kidney Damage + + +------- ------ + | >90 | Stage one | Normal + + +------- ------ + | 60-89 | Stage two | Decreased GFR + + +------- ------ + | 30-59 | Stage three | Stage three + + +------- ------ + | 15-29 | Stage four | Stage four + + +------- ------ + | <15 (or dialysis) | Stage five | Stage five + + +------- ------ + *Each stage assumes the associated GFR level has been in effect for at least three months. Stages 1 to 5, wit h or without kidney disease, indicate chronic kidney disease. Notes: Determination of stages one and two (with eGFR >59mL/min/1.73 m2) requires estimation of kidney damag e for at least three months as defined by structural or func tional abnormalities of the kidney, manifested by either: Pathological abnormalities or Markers of kidney damage (including abnormalities in the composition of the blo od or urine or abnormalities in imaging tests) . Performing Organization Address City/[facility]/Zipcode Phone Number [facility] CLIA: [id number] [place] [address] [place] [address] CBC WITHOUT DIFF (07/25/2020 6:35 AM CDT) Pathologist Sig nature WBC 18.86 (H) 4.30 - 11.10 [facility] 10*3/L SERVICES RBC 3.67 (L) 3.93 - 5.25 [facility] 10*6/L SERVICES HGB 12.0 11.6 - 15.0 g/dL [facility] HCT 35.6 (L) 35.7 - 45.2 % [facility] MCH 32.7 25.9 - 32.8 pg [facility] MCV 97.0 (H) 80.6 - 95.5 fL [facility] MCHC 33.7 31.6 - 35.1 g/dL [facility] PLT 210 166 - 358 10*3/L [facility] MPV 10.9 9.5 - 12.9 fL [facility] RDW-CV 12.1 12.0 - 15.5 % [facility] RDW-SD 43.3 39.0 - 49.9 fL [facility] NRBC x10^3 <0.01 10*3/L [facility] NRBC/100 WBC 0.0 0.0 - 10.0 /100 [facility] WBCs SERVICES IPF % [facility] Specimen Blood - VENOUS Performing Organization Address City/[facility]/Zipcode Phone Number [facility] CLIA: [id number] [place], [place] [address] [place] [address] ABORH CONFIRMATION (07/24/2020 11:37 PM CDT) Pathologist Sig nature ABO & RH A Positive LAB Comment: Performed at [facility] Laboratory Services - [facility] Blood [place] [address] Toll Free: [phone] CLIA No. [id number] Specimen Performing Organization Address City/[facility]/Zipcode Phone Number [facility] LAB Type and Screen - ONCE ULISA (07/24/2020 11:12 PM CDT) Pathologist Sig nature ABO & RH A POSITIVE LAB Comment: Performed at [facility] Services - [place] [address] Toll Free: [phone] CLIA No. [id number] IAT Negative LAB Comment: Performed at [facility] Laboratory Services - [facility] Blood [place] [address] Toll Free: [phone] CLIA No. [id number] Specimen Blood - VENOUS Performing Organization Address City/[facility]/Zipcode Phone Number [facility] LAB BASIC METABOLIC PANEL (NA, K, CL, CO2, GLUCOSE, BUN, CREATININE, CA) (07/24/2020 2:34 AM CDT) NA 137 135 - 145 [facility] mmol/L SERVICES K 4.1Comment: 3.5 - 5.0 [facility] Slight hemolysis mmol/L SERVICES CL 102 98 - 108 [facility] mmol/L SERVICES CO2 TOTAL 24 23 - 31 [facility] mmol/L SERVICES AGAP 11 2 - 16 [facility] BUN 19Comment: Slight 7 - 23 mg/dL [facility] hemolysis SERVICES GLUCOSE 170 (H) 70 - 110 [facility] mg/dL SERVICES CREATININE 0.93 0.50 - 1.04 [facility] mg/dL SERVICES CALCIUM 8.9 8.6 - 10.6 [facility] mg/dL SERVICES eGFR Calculation 65.2 mL/min/1.73m2 [facility] (Non- SERVICES [place]) eGFR Calculation 79.0 mL/min/1.73m2 [facility] () SERVICES Specimen Blood - ARM, LEFT Narrative Performed At Association of Glomerular Filtration Rate (GFR) and St aging [facility] of Kidney Disease* + + +------- ------ + | GFR (mL/min/1.73 m2) | With Kidney Damage | Wi thout Kidney Damage + + +------- ------ + | >90 | Stage one | Normal + + +------- ------ + | 60-89 | Stage two | Decreased GFR + + +------- ------ + | 30-59 | Stage three | Stage three + + +------- ------ + | 15-29 | Stage four | Stage four + + +------- ------ + | <15 (or dialysis) | Stage five | Stage five + + +------- ------ + *Each stage assumes the associated GFR level has been in effect for at least three months. Stages 1 to 5, wit h or without kidney disease, indicate chronic kidney disease. Notes: Determination of stages one and two (with eGFR >59mL/min/1.73 m2) requires estimation of kidney damag e for at least three months as defined by structural or func tional abnormalities of the kidney, manifested by either: Pathological abnormalities or Markers of kidney damage (including abnormalities in the composition of the blo od or urine or abnormalities in imaging tests) . Performing Organization Address City/State/Zipcode Phone Number [facility] CLIA: [id number] [place] [id number] [address] [place] [address] CBC WITHOUT DIFF (07/24/2020 2:34 AM CDT) WBC 14.33 (H) 4.30 - 11.10 [facility] 10*3/L SERVICES RBC 4.69 3.93 - 5.25 [facility] 10*6/L SERVICES HGB 15.1 (H) 11.6 - 15.0 [facility] g/dL SERVICES HCT 44.2 35.7 - 45.2 % [facility] MCH 32.2 25.9 - 32.8 pg [facility] MCV 94.2 80.6 - 95.5 fL [facility] MCHC 34.2 31.6 - 35.1 [facility] g/dL SERVICES PLT 277 166 - 358 [facility] 10*3/L SERVICES MPV 11.0 9.5 - 12.9 fL [facility] RDW-CV 12.0 12.0 - 15.5 % [facility] RDW-SD 41.5 39.0 - 49.9 fL [facility] NRBC x10^3 <0.01 10*3/L [facility] NRBC/100 WBC 0.0 0.0 - 10.0 [facility] /100 WBCs SERVICES IPF % 5.7Comment: Platelet 1.3 - 7.7 % [facility] count measured by SERVICES fluorescence method. Specimen Blood - ARM, LEFT Performing Organization Address City/State/Zipcode Phone Number [facility] CLIA: [id number] [place] [address] [place] [address] XR ABDOMEN 1 VW (07/24/2020 1:56 AM CDT) Specimen Narrative Performed At EXAM: XR ABDOMEN 1 VW 07/24/2020 1:46 AM. PACS/VR/DOSE INDICATION: 44 years-old Female, with NG t placement COMPARISON: CT abdomen, 07/23/2020 TECHNIQUE: Frontal radiograph of the abd omen and pelvis. FINDINGS: The tip of the NGT is at the gastric fundus, with the sidehole projecting over the EG junction. Multiple dilated small bowel loops in th e left upper quadrant are redemonstrated. Preliminary Report Dictated by Resident: Neda John I reviewed this study and agree. Shahriar Caban MD., have reviewe d this study and agree with the above report. Procedure Note [facility], Radiant Results Inft User - 2019 8:40 AM CDT EXAM: XR ABDOMEN 1 VW 07/24/2020 1:46 AM. INDICATION: 44 years-old Female, with NG t placement COMPARISON: CT abdomen, 07/23/2020 TECHNIQUE: Frontal radiograph of the abd omen and pelvis. FINDINGS: The tip of the NGT is at the gastric fun dus, with the sidehole projecting over the EG junction. Multiple dilated small bowel loops in th e left upper quadrant are redemonstrated. Preliminary Report Dictated by Resident: Neda John I reviewed this study and agree. Shahriar Caban MD., have reviewe d this study and agree with the above report. Performing Organization Address City/State/Zipcode Phone Number PACS/VR/DOSE COVID-19 (ID NOW RAPID TESTING) (07/23/2020 7:26 PM CDT) SARS-CoV-2 Rapid ID Not Detected Not Detected [facility] Specimen Swab - NASOPHARYNGEAL SWAB Narrative Performed At [facility] COVID-19 Assay is an isothermal nucleic [facility] acid amplification test intended for the qualitative detection of nucleic acid from SARS-CoV-2 viral RNA in nasopharyngeal (HEAD OF MATHEMATICS) specimens. It is used under Emergency Use Authorization (EUA) by FDA. The limit of detection (LOD) of the assay is 125 Genome Equivalents/mL. A positive result is indicative of the presence of SARS-CoV-2 RNA. Clinical correlation with patient history and other diagnostic information is necessary to determine patient infection status. A negative (Not Detected) result does not preclude SARS-CoV-2 infection. In patients with clinical symptoms and other tests that are consistent with SARS-CoV-2 infection, negative results should be treated as presumptive negative and a new specimen should be tested with alternative PCR molecular test. Invalid: Please collect a new specimen for repeat patient testing if clinically indicated. Performing Organization Address [facility]/Zipcode Phone Number [facility] CLIA: [id number] [place] [address] LABORATORY [address] [facility] Lactic Acid Whole Blood (07/23/2020 7:24 PM CDT) Pathologist Sig nature LACTIC ACID 3.03 mmol/L [facility] Specimen Blood - VENOUS Performing Organization Address City/[facility]/Zipcode Phone Number [facility] CLIA: [id number] [place] [address] LABORATORY [address] [facility] BLOOD CULTURE SCREEN (07/23/2020 4:41 PM CDT) Blood No organisms isolated No growth [facility] Culture-Aerobic Comment: HOSPITAL Previous preliminary verifie d result was Culture In Progress on 07/23/2020 at 2000 T LABORATORY Previous preliminary verifie d result was No growth at 24 hours on 07/24/2020 at 1701 CDT Previous preliminary verifie d result was No growth at 48 hours on 07/25/2020 at 1701 CDT Previous preliminary verifie d result was No growth at 72 hours on 07/26/2020 at 1702 CDT Blood No organisms isolated No growth [facility] Culture-Anaerobic Comment: HOSPITAL Previous preliminary verifie d result was Culture In Progress on 07/23/2020 at 2000 T LABORATORY Previous preliminary verifie d result was No growth at 24 hours on 07/24/2020 at 1701 CDT Previous preliminary verifie d result was No growth at 48 hours on 07/25/2020 at 1701 CDT Previous preliminary verifie d result was No growth at 72 hours on 07/26/2020 at 1702 CDT Specimen Blood - VENOUS Performing Organization Address [facility] Phone Number [facility] CLIA: [id number] [place] [address] LABORATORY [address] [facility] BLOOD CULTURE SCREEN (07/23/2020 4:41 PM CDT) Blood No organisms isolated No growth [facility] Culture-Aerobic Comment: [facility] Previous preliminary verifie d result was Culture In Progress on 07/23/2020 at 2000 CDT LABORATORY Previous preliminary verifie d result was No growth at 24 hours on 07/24/2020 at 1701 CDT Previous preliminary verifie d result was No growth at 48 hours on 07/25/2020 at 1701 CDT Previous preliminary verifie d result was No growth at 72 hours on 07/26/2020 at 1702 CDT Blood No organisms isolated No growth [facility] Culture-Anaerobic Comment: [facility] Previous preliminary verifie d result was Culture In Progress on 07/23/2020 at 2000 CDT LABORATORY Previous preliminary verifie d result was No growth at 24 hours on 07/24/2020 at 1701 CDT Previous preliminary verifie d result was No growth at 48 hours on 07/25/2020 at 1701 CDT Previous preliminary verifie d result was No growth at 72 hours on 07/26/2020 at 1702 CDT Specimen Blood - VENOUS Performing Organization Address [facility] Phone Number [facility] CLIA: [id number] [place] [address] [place] [address] Lactic Acid Whole Blood (07/23/2020 4:41 PM CDT) Pathologist Sig nature LACTIC ACID 2.30 mmol/L [facility] Specimen Blood - VENOUS Performing Organization Address [facility] Phone Number [facility] CLIA: [id number] [place] [address] [address] ABDOMEN PELVIS W CONTRAST (07/23/2020 3:56 PM CDT) Specimen Narrative Performed At CT Abdomen and Pelvis with intravenous c ontrast. PACS/VR/DOSE CLINICAL HISTORY: Abdominal pain. Rule o ut appendicitis. DOSE: Up-to-date CT equipment and radiation dose reduc tion techniques were employed. CTDIvol: 5.43 mGy. DLP: 257 mGy-cm. TECHNIQUE : Contiguous axial imaging fro m the level of the lung bases through the pubic symphysis were perform ed after the uncomplicated administration of Omnipaque contrast mat erial. Coronal and sagittal reconstructions were obtained. Auto mA and/or iterativ e reconstruction were used to reduce radiation dose. FINDINGS: Comparison is made with 019 study. Lower lungs: Clear. No pleural effusion or pericardial effusion. Probable short sliding hiatal hernia. Liver, Gallbladder and Spleen: No calcif ied gallstones. Liver is 12.4 cm and spleen is 7.5 x 2.5 cm in size. Biliary ducts and the pancreatic duct appear of normal size. Peritoneum: No free air. Free fluid noted surroundin g intestines, spleen, minimal around the liver and in the cul- de-sac. Small lymph nodes are seen in the right lower quadrant of the abdomen. Pancreas and Adrenals: Unremarkable pa ncreas and adrenal glands. Kidneys and Ureters: No visible calculi in the renal collecting systems. No hydroureter or hydronephrosis. Vessels: Normal. Retroperitoneum: No abnormal fluid or ly mphadenopathy. Bowel: Several ileal loops are dilated up to 3.5 cm wi th submucosal edema, congestion of the surrounding mesentery and small amount of fluid surrounding abnormal bowel loops. Some of the bowel lo ops proximal to the edematous ileum with distended with gas. Appendix is not visualized, however, findings are not suggestive of acute appendicitis. Bladder and Reproductive Organs: S/P hys terectomy. Grossly unremarkable unopacified and incompletely distended u rinary bladder. Bones: Mild bilateral hip joint arthritis. No aggressi ve bone lesions. No compression deformity in the lower thora cic or lumbar vertebral bodies. Soft tissues: Unremarkable. CONCLUSION: 1. Abnormal findings involving some of t he distal ileal loops, with free fluid is seen in the lower abdomen and s urrounding spleen. No free intraperitoneal air. Etiology is unclear given the history of Crohn's disease but could be acute flareup of Cr ohn's disease. Involved loops of bowel showed poor contrast enhancement of the mucosa w ithout any definite CT signs of bowel infarction. Possibility of small bow el obstruction cannot be excluded. 2. Appendix is not visualized, however, findings are not suggestive of acute appendicitis. Procedure Note [facility], Radiant Results Inft User - 2019 4:[address] Abdomen and Pelvis with intravenous contrast. CLINICAL HISTORY: Abdominal pain. Rule o ut appendicitis. DOSE: Up-to-date CT equipment and radiat ion dose reduction techniques were employed. CTDIvol: 5.43 mGy. DLP: 257 mGy-cm. TECHNIQUE : Contiguous axial imaging fro m the level of the lung bases through the pubic symphysis were perform ed after the uncomplicated administration of Omnipaque contrast mat erial. Coronal and sagittal reconstructions were obtained. Auto mA a nd/or iterative reconstruction were used to reduce radiation dose. FINDINGS: Comparison is made with 019 study. Lower lungs: Clear. No pleural effusion or pericardial effusion. Probable short sliding hiatal hernia. Liver, Gallbladder and Spleen: No calcif ied gallstones. Liver is 12.4 cm and spleen is 7.5 x 2.5 cm in size. Bili tri ducts and the pancreatic duct appear of normal size. Peritoneum: No free air. Free fluid not ed surrounding intestines, spleen, minimal around the liver and in the cul- de-sac. Small lymph nodes are seen in the right lower quadrant of the abdomen. Pancreas and Adrenals: Unremarkable higgins creas and adrenal glands. Kidneys and Ureters: No visible calculi in the renal collecting systems. No hydroureter or hydronephrosis. Vessels: Normal. Retroperitoneum: No abnormal fluid or ly mphadenopathy. Bowel: Several ileal loops are dilated u p to 3.5 cm with submucosal edema, congestion of the surrounding mesentery and small amount of fluid surrounding abnormal bowel loops. Some o f the bowel loops proximal to the edematous ileum with distended with gas. Appendix is not visualized, however, findings are not suggestive of acute appendicitis. Bladder and Reproductive Organs: S/P hys terectomy. Grossly unremarkable unopacified and incompletely distended u rinary bladder. Bones: Mild bilateral hip joint arthriti s. No aggressive bone lesions. No compression deformity in the lower thora cic or lumbar vertebral bodies. Soft tissues: Unremarkable. CONCLUSION: 1. Abnormal findings involving some of t he distal ileal loops, with free fluid is seen in the lower abdomen and s urrounding spleen. No free intraperitoneal air. Etiology is unclear given the history of Crohn's disease but could be acute flareup of Cr ohn's disease. Involved loops of bowel showed poor contrast enhancement o f the mucosa without any definite CT signs of bowel infarction. Possibilit y of small bowel obstruction cannot be excluded. 2. Appendix is not visualized, however, findings are not suggestive of acute appendicitis. Performing Organization Address [facility] Phone Number PACS/VR/DOSE Lipase Serum (07/23/2020 2:31 PM CDT) Pathologist Sig formerly [facility] LIPASE 26 0 - 220 U/L [facility] Specimen Blood - VENOUS Performing Organization Address [facility] Phone Number [facility] CLIA: [id number] [place] [address] [place] [address] Hepatic Function Panel (ALB, T.PRO, BILI T, BU/BC, ALT, AST, ALK PHOS) (07/23/2020 2:31 PM CDT) Pathologist Sig formerly [facility] TOTAL BILI 1.0 0.1 - 1.1 mg/dL [facility] BILI UNCON 1.0 0.1 - 1.1 mg/dL [facility] BILI CONJ 0.0 0.0 - 0.3 mg/dL [facility] T PROTEIN 8.9 (H) 6.3 - 8.2 g/dL [facility] ALBUMIN 4.7 3.5 - 5.0 g/dL [facility] ALK PHOS 77 34 - 122 U/L [facility] ALTv 19 5 - 35 U/L [facility] AST(SGOT) 24 13 - 40 U/L [facility] Specimen Blood - VENOUS Performing Organization Address [facility] Phone Number [facility] CLIA: [id number] [place], [place] [address] LABORATORY [address] [place] [address] Basic Metabolic Panel (NA, K, CL, CO2, GLUCOSE, BUN, CREATININE, CA) (07/23/2020 2:31 PM CDT) Pathologist Sig [facility] NA 137 135 - 145 [facility] mmol/L HOSPITAL LABORATORY K 3.3 (L) 3.5 - 5.0 [facility] mmol/L [facility] CL 97 (L) 98 - 108 mmol/L [facility] CO2 TOTAL 25 23 - 31 mmol/L [facility] AGAP 15 2 - 16 [facility] BUN 18 7 - 23 mg/dL [facility] GLUCOSE 236 (H) 70 - 110 mg/dL [facility] CREATININE 0.94 0.50 - 1.04 [facility] mg/dL [facility] CALCIUM 10.4 8.6 - 10.6 [facility] mg/dL [facility] eGFR Calculation 64.4 mL/min/1.73m2 [facility] (Non[facility] LABORATORY [place]) eGFR Calculation 78.0 mL/min/1.73m2 [facility] () [facility] Specimen Blood - VENOUS Narrative Performed At [facility] Glomerular Filtration Rate (GFR) [facility] and Staging of Kidney Disease* + + +- + | GFR (mL/min/1.73 m2) | With Kidney Damage | Without Kidney Damage + + +- + | >90 | Stage one | Normal + + +- + | 60-89 | Stage two | Decreased GFR + + +- + | 30-59 | Stage three | Stage three + + +- + | 15-29 | Stage four | Stage four + + +- + | <15 (or dialysis) | Stage five | Stage five + + +- + *Each stage assumes the associated GFR level has been in effect for at least three months. Stages 1 to 5, with or without kidney disease, indicate chronic kidney disease. Notes: Determination of stages one and two (with eGFR >59mL/min/1.73 m2) requires estimation of kidney damage for at least three months as defined by structural or functional abnormalities of the kidney, manifested by either: Pathological abnormalities or Markers of kidney damage (including abnormalities in the composition of the blood or urine or abnormalities in imaging tests). Performing Organization Address City/State/Zipcode Phone Number [facility] CLIA: [id number] [place] [address] CBC with Differential (07/23/2020 2:31 PM CDT) [facility] nature WBC 14.04 (H) 4.30 - 11.10 [facility] 10*3/L HOSPITAL LABORATORY RBC 5.34 (H) 3.93 - 5.25 [facility] 10*6/L [facility]ITAL LAB[facility]ATORY HGB 17.1 (H) 11.6 - 15.0 [facility] g/dL [facility] HCT 49.7 (H) 35.7 - 45.2 % [facility] MCV 93.1 80.6 - 95.5 fL [facility] MCH 32.0 25.9 - 32.8 pg [facility] MCHC 34.4 31.6 - 35.1 [facility] g/dL HOSPITAL LABORATORY RDW-SD 39.7 39.0 - 49.9 fL [facility] RDW-CV 11.5 (L) 12.0 - 15.5 % [facility] PLT 339 166 - 358 [facility] 10*3/L [facility] MPV 10.4 9.5 - 12.9 fL [facility] NRBC/100 WBC 0.0 0.0 - 10.0 /100 [facility] WBCs [facility] NRBC x10^3 <0.01 10*3/L [facility] GRAN MAT (NEUT) % 90.3 % [facility] IMM GRAN % 0.50 % [facility] LYMPH % 5.4 % [facility] MONO % 3.7 % [facility] EOS % 0.0 % [facility] BASO % 0.1 % [facility] GRAN MAT x10^3(ANC) 12.67 (H) 1.88 - 7.09 [facility] 10*3/uL HOSPITAL LABORATORY IMM GRAN x10^3 0.07 (H) 0.00 - 0.06 [facility] 10*3/uL [facility]OSPITAL LAB[facility]ORY LYMPH x10^3 0.76 (L) 1.32 - 3.29 [facility] 10*3/uL [facility]PITAL LAB[facility]ATORY MONO x10^3 0.52 0.33 - 0.92 [facility] 10*3/uL HOSPITAL LABORATORY EOS x10^3 <0.03 (L) 0.03 - 0.39 [facility] 10*3/uL HOSPITAL LABORATORY BASO x10^3 <0.03 0.01 - 0.07 [facility] 10*3/uL [facility]ITAL LABORATORY Specimen Blood - VENOUS Performing Organization Address City/State/Zipcode Phone Number [facility] CLIA: [id number] [place] [address] Urinalysis (07/23/2020 2:19 PM CDT) Pathologist Sig nature APPEARANCE Hazy (A) Clear [facility] COLOR Kathleen (A) Yellow [facility] PH 5.0 4.8 - 8.0 [facility] SP GRAVITY 1.034 (H) 1.003 - 1.030 [facility] GLU U QUAL 50 mg/dL (A) Normal [facility] BLOOD Negative Negative [facility] KETONES 80 mg/dL (A) Negative [facility] PROTEIN 100 mg/dL (A) Negative [facility] UROBILIN Normal Normal [facility] BILIRUBIN Negative Negative [facility] NITRITE Negative Negative [facility] LEUK CHELY Negative Negative [facility] RBC/HPF 2 0 - 3 HPF [facility] WBC/HPF 5 0 - 5 HPF [facility] BACTERIA Few (A) Negative [facility] MUCOUS Marked (A) Negative LPF [facility] SQ EPITH 6 HPF [facility] Specimen Urine - URINE, CLEAN CATCH Performing Organization Address [facility] Phone Number [facility] CLIA: [id number] [place] [address] documented in this encounter Visit Diagnoses Diagnosis SBO (small bowel obstruction) - Primary Unspecified intestinal obstruction Abdominal pain, unspecified abdominal lo cation Small bowel obstruction Unspecified intestinal obstruction Free fluid in pelvis Crohn's disease of colon with complicati on documented in this encounter Administered Medications Medication Order MAR Action Action Date Dose Rate Site acetaminophen (TYLENOL) tablet Given 08/01/2020 2:20 PM CDT 650 mg 650 mg 650 mg, Oral, Q6H ABX, First dose on Wed07/29/20 at 0900, Until Discontinued, Routine Given 08/01/2020 9:12 AM CDT 650 mg Given 08/01/2020 4:13 AM CDT 650 mg ALPRAZolam (XANAX) tablet 1 mg Given 07/31/2020 10:53 PM CDT 1 mg 1 mg, Oral, QHSPRN, Starting 07/28/20 at 0852, Until Discontinued, Routine, Insomnia, anxiety Given 07/30/2020 11:15 PM CDT 1 mg Given 07/28/2020 10:27 PM CDT 1 mg D5W 0.45% NaCl (1/2NS) 1 L + KCL 20 mEq IV Infusion, at 42 mL/hr, CONTINUOUS, Starting 07/16 at 0645, Until Discontinued, Routine enoxaparin (LOVENOX) injection 40 mg Given 07/31/2020 9:00 AM CDT 40 mg Abdo men-SC 40 mg, Subcutaneous, Q24H, First dose on Wed07/26/20 at 0900, Until Discontinued, Routine Given 07/30/2020 11:37 AM CDT 40 mg Abdo men-SC Given 07/29/2020 4:13 PM CDT 40 mg Abdo men-SC HYDROmorphone (DILAUDID) tablet 2 mg 2 mg, Oral, Q6HPRN, Starting Beth 08/01/20 at 0700, Until Discontinued, Routine, Pain (scale 7-10) ibuprofen (IBU) tablet 600 mg Given 08/01/2020 7:17 AM CDT 600 mg 600 mg, Oral, Q6H ABX, First dose on Wed07/29/20 at 1200, Until Discontinued, Routine Given 08/01/2020 12:26 AM CDT 600 mg Given 07/30/2020 5:20 PM CDT 600 mg lidocaine 1% (PF) (XYLOCAINE) injection 5 mL 5 mL, Subcutaneous, PRN, Starting Wed at 1059, Until Discontinued, Routine, Local anesthesia loperamide (IMODIUM A-D) capsule 2 mg Given 08/01/2020 9:12 AM CDT 2 mg 2 mg, Oral, DAILY, First dose on Wed07/30/20 at 0900, Until Discontinued, Routine Given 07/31/2020 9:55 AM CDT 2 mg Given 07/30/2020 8:59 AM CDT 2 mg methocarbamoL (ROBAXIN) tablet 500 mg Given 08/01/2020 2:20 PM CDT 500 mg 500 mg, Oral, QID, First dose on Wed07/29/20 at 0800, Until Discontinued, Routine Given 08/01/2020 9:12 AM CDT 500 mg Given 07/31/2020 7:35 PM CDT 500 mg metoprolol tartrate (LOPRESSOR) tablet 2 5 mg Given 08/01/2020 9:12 AM CDT 25 mg 25 mg, Oral, BID, First dose (after last modification) on Wed07/30/20 at 2000, Until Discontinued, Routine Given 07/31/2020 7:35 PM CDT 25 mg Given 07/31/2020 9:55 AM CDT 25 mg NaCl 0.9% (NS) injection 10 mL 10 mL, Slow IV Push, PRN, Starting Wed07/29/20 at 1059 , Until Discontinued, Routine, lineman a class naloxone (NARCAN) injection 0.1 mg 0.1 mg, Slow IV Push, SEE-INSTRUCTIONS, Starting Wed at 1836, Until Discontinued, Routine pantoprazole (PROTONIX) EC tablet 40 mg Given 08/01/2020 9:00 AM CDT 40 mg 40 mg, Oral, DAILY, First dose on Wed07/29/20 at 0900, Until Discontinued, Routine Given 07/31/2020 9:55 AM CDT 40 mg Given 07/30/2020 9:00 AM CDT 40 mg proCHLORperazine (COMPAZINE) 10 mg in NaCl Given 08/01/2020 4:1 9 AM CDT 10 mg 0.9% (NS) piggyback 10 mg, IV Piggyback, Q6HPRN, Starting Wed07/26/20 at 0653, Until Discontinued, 50 mL Given 07/31/2020 4:14 AM CDT 10 mg Given 07/30/2020 9:02 PM CDT 10 mg proMETHazine (PHENERGAN) 12.5 mg in NaCl Given 08/01/2020 9:16 AM CDT 12.5 mg 0.9% (NS) 50 mL IV piggyback 12.5 mg, IV Piggyback, Q4HPRN, Starting Wed07/24/20 at 0114, Until Discontinued, Routine, Nausea and Vomiting (N/V) Given 08/01/2020 2:19 AM CDT 12.5 mg Given 07/31/2020 7:45 PM CDT 12.5 mg Medication Order MAR Action Action Date Dose Rate Site acetaminophen ADULT (OFIRMEV) Given 07/24/2020 5:01 PM CDT 1,00 0 mg injection 1,000 mg 1,000 mg, IV Infusion, Administer over 15 Minutes, Q8H ABX, 3 doses, First dose on Wed07/24/20 at 0230, Last dose on Wed07/24/20 at 1830, Routine, Indication: Non-perioperative Patient, Approved by: Per Policy (NPO Status) Given 07/24/2020 10:50 AM CDT 1,000 mg Given 07/24/2020 2:27 AM CDT 1,000 mg acetaminophen ADULT (OFIRMEV) injection Given 07/25/2020 11:42 P M CDT 1,000 mg 1,000 mg 1,000 mg, IV Infusion, Administer over 15 Minutes, Q8H ABX, 3 doses, First dose (after last reorder) on Beth 07/25/20 at 0745, Last dose on Wed07/25/20 at 2345, Routine, Indication: Non-perioperative Patient, Approved by: Per Policy (NPO Status) Given 07/25/2020 8:38 AM CDT 1,000 mg acetaminophen ADULT (OFIRMEV) injection Given 07/25/2020 7:29 P M CDT 1,000 mg 1,000 mg 1,000 mg, IV Infusion, Administer over 15 Minutes, PRN, 1 dose, Starting Beth 07/25/20 at 1921, Until Beth 07/25/20 at 1944, Routine, Pain (scale 4-6), Indication: Perioperative Patient acetaminophen ADULT (OFIRMEV) injection Given 07/27/2020 6:19 A M CDT 1,000 mg 1,000 mg 1,000 mg, IV Infusion, Administer over 15 Minutes, Q8H ABX, 3 doses, First dose (after last reorder) on Wed07/26/20 at 1345, Last dose on Wed07/27/20 at 0545, Routine, Indication: Non-perioperative Patient, Approved by: Per Policy (NPO Status) Given 07/26/2020 8:33 PM CDT 1,000 mg Given 07/26/2020 1:21 PM CDT 1,000 mg acetaminophen ADULT (OFIRMEV) injection Given 07/28/2020 2:17 A M CDT 1,000 mg 1,000 mg 1,000 mg, IV Infusion, Administer over 15 Minutes, Q8H ABX, 3 doses, First dose (after last reorder) on 07/27/20 at 0945, Last dose on 07/28/20 at 0145, Routine, Indication: Non-perioperative Patient, Approved by: Per Policy (NPO Status) Given 07/27/2020 7:42 PM CDT 1,000 mg Given 07/27/2020 9:45 AM CDT 1,000 mg acetaminophen ADULT (OFIRMEV) injection Given 07/29/2020 3:01 A M CDT 1,000 mg 1,000 mg 1,000 mg, IV Infusion, Administer over 15 Minutes, Q8H ABX, 3 doses, First dose (after last reorder) on 07/28/20 at 1000, Last dose on 07/29/20 at 0200, Routine, Indication: Non-perioperative Patient, Approved by: Per Policy (NPO Status) Given 07/28/2020 8:33 PM CDT 1,000 mg Given 07/28/2020 12:03 PM CDT 1,000 mg ALPRAZolam (XANAX) tablet 0.5 mg Given 07/28/2020 11:59 AM CDT 0.5 mg 0.5 mg, Oral, PRN, 1 dose, Starting 07/28/20 at 0853, Until 07/28/20 at 1159, Routine, anxiety D5W 0.45% NaCl (1/2NS) 1 L + KCL 20 mEq New Bag 07/28/2020 2:16 AM CDT 150 mL/hr IV Infusion, at 150 mL/hr, CONTINUOUS, Starting 07/24/20 at 0130, Until Wed07/28/20 at 0739, Routine New Bag 07/27/2020 6:07 PM CDT 150 mL/hr New Bag 07/27/2020 8:33 AM CDT 150 mL/hr D5W 0.45% NaCl (1/2NS) 1 L + KCL 20 mEq New Bag 07/29/2020 5:07 AM CDT 100 mL/hr IV Infusion, at 100 mL/hr, CONTINUOUS, Starting 07/28/20 at 0745, Until 07/29/20 at 0737, Routine New Bag 07/28/2020 3:31 PM CDT 100 mL/hr Dose/Rate Verify 07/28/2020 9:00 AM CDT 100 mL/hr D5W 0.45% NaCl (1/2NS) 1 L + KCL 20 mEq New Bag 07/30/2020 8:49 PM CDT 100 mL/hr IV Infusion, at 100 mL/hr, CONTINUOUS, Starting Wed07/29/20 at 1800, Until Wed07/31/20 at 0638, Routine Restarted 07/30/2020 8:48 PM CDT 100 mL/hr New Bag 07/30/2020 5:05 AM CDT 100 mL/hr diphenhydrAMINE (BENADRYL) injection 25 mg Given 07/23/2020 2:18 PM CDT 25 mg 25 mg, Slow IV Push, ONCE, 1 dose, Wed07/23/20 at 1415, STAT famotidine (PEPCID (PF)) injection 20 mg Given 07/23/2020 2:02 PM CDT 20 mg 20 mg, Intravenous, ONCE, 1 dose, Wed07/23/20 at 1345, LUISA HYDROmorphone (DILAUDID) injection 0.2 m g Given 07/25/2020 7:56 PM CDT 0.2 mg 0.2 mg, Slow IV Push, Q5MIN PRN, 10 doses, Starting Wed07/25/20 at 1922, Until Wed07/25/20 at 2047, Routine, Pain (scale 7-10), PACU, Use approved by (Faculty): PAIN SERVICE Given 07/25/2020 7:05 PM CDT 0.2 mg HYDROmorphone (DILAUDID) tablet 2 mg Given 08/01/2020 4:19 AM CDT 2 mg 2 mg, Oral, Q4HPRN, Starting Wed07/30/20 at 0828, Until Beth 08/01/20 at 0654, Routine, Pain (scale 7-10) Given 07/31/2020 10:53 PM CDT 2 mg Given 07/31/2020 4:44 PM CDT 2 mg iohexol (OMNIPAQUE 350 BULK-150 mL) Given 07/23/2020 3:47 PM CD T 114 mL injection 114 mL 114 mL, Intravenous, ONCE, 1 dose, Wed07/23/20 at 1600, Routine KCL (KLOR-CON M20) tablet 20 mEq Given 07/29/2020 8:50 AM CDT 20 mEq 20 mEq, Oral, ONCE, 1 dose, Wed07/29/20 at 0845, Routine lactated ringers IV infusion New Bag 07/29/2020 5:14 PM CDT 1,000 mL 999 mL/hr 1,000 mL at 999 mL/hr, 1,000 mL, Intravenous, ONCE, 1 dose, Wed07/29/20 at 1730, Routine LORazepam (ATIVAN) injection 0.5 mg Given 07/26/2020 8:34 PM CDT 0.5 mg 0.5 mg, Slow IV Push, ONCE, 1 dose, Wed07/26/20 at 1830, Routine magnesium sulfate in water 2 gram/50 mL (4 %) New Bag 6:17 PM CDT 2 g infusion 2 g 2 g, IV Piggyback, ONCE, 1 dose, Wed07/26/20 at 0800, Routine magnesium sulfate in water 4 gram/50 mL (8 %) New Bag 9:55 AM CDT 4 g IV Piggyback 4 g 4 g, IV Piggyback, ONCE, 1 dose, Wed07/31/20 at 0730, Routine methocarbamoL (ROBAXIN) 1,000 mg in NaCl Given 07/28/2020 4 :27 PM CDT 1,000 mg 0.9% (NS) piggyback 1,000 mg (1 g), IV Piggyback, ONCE, 1 dose, Wed07/28/20 at 1700, 100 mL methylPREDNISolone sod succ (SOLU-MEDROL Given 07/23/2020 2:10 PM CDT 40 mg (PF)) injection 40 mg 40 mg, IV Piggyback, ONCE, 1 dose, Wed07/23/20 at 1415, STAT metoprolol (LOPRESSOR) injection 5 mg Given 07/28/2020 5:22 AM CDT 5 mg 5 mg, IV Piggyback, Q6H, First dose on Wed07/26/20 at 0000, Until Discontinued, Routine Given 07/27/2020 11:46 PM CDT 5 mg Given 07/27/2020 7:43 PM CDT 5 mg metoprolol (LOPRESSOR) injection 5 mg Given 07/28/2020 8:21 PM CDT 5 mg 5 mg, IV Push, Q8H, First dose (after last modification) on Wed07/28/20 at 2000, Until Discontinued, Routine metoprolol tartrate (LOPRESSOR) half tablet Given 07/16 7:56 AM CDT 12.5 mg 12.5 mg 12.5 mg, Oral, BID, First dose (after last reorder) on Wed07/29/20 at 2000, Until Discontinued, Routine Given 07/29/2020 8:49 PM CDT 12.5 mg metoprolol tartrate (LOPRESSOR) tablet 2 5 mg Given 07/25/2020 8:38 AM CDT 25 mg 25 mg, Oral, BID, First dose on Wed07/24/20 at 0800, Until Discontinued, Routine Given 07/24/2020 7:46 PM CDT 25 mg Given 07/24/2020 8:17 AM CDT 25 mg morpHINE 30 mg/30 mL (fixed dose) [employer] New Bag 07/27/2020 3:50 PM CDT 30 mg injection New Bag 07/26/2020 11:40 PM CDT 30 mg New Bag 07/26/2020 5:13 AM CDT 30 mg morpHINE injection 4 mg Given 07/23/2020 1:59 PM CDT 4 mg 4 mg, Slow IV Push, ONCE, 1 dose, 07/23/20 at 1415, STAT morpHINE injection 4 mg Given 07/23/2020 4:20 PM CDT 4 mg 4 mg, Slow IV Push, ONCE, 1 dose, Wed07/23/20 at 1730, STAT morpHINE injection 4 mg Given 07/23/2020 7:22 PM CDT 4 mg 4 mg, Slow IV Push, ONCE, 1 dose, Wed07/23/20 at 2015, STAT morpHINE injection 4 mg Given 07/23/2020 9:42 PM CDT 4 mg 4 mg, Slow IV Push, ONCE, 1 dose, 07/23/20 at 2245, STAT morpHINE injection 4 mg Given 07/27/2020 8:33 AM CDT 4 mg 4 mg, Slow IV Push, Q3HPRN, Starting Wed07/24/20 at 0119, Until Wed07/28/20 at 0948, Routine, Pain (scale 7-10) Given 07/27/2020 5:28 AM CDT 4 mg Given 07/26/2020 11:40 PM CDT 4 mg NaCl 0.9% (NS) bolus infusion New Bag 07/23/2020 2:32 PM CDT 1,000 mL 999 mL/hr 1,000 mL at 999 mL/hr, 1,000 mL, IV Infusion, ONCE, 1 dose, Wed07/23/20 at 1245, LUISA NaCl 0.9% (NS) bolus infusion 500 New Bag 07/23/2020 9:43 PM CDT 500 mL 999 mL/hr mL at 999 mL/hr, 500 mL, IV Infusion, ONCE, 1 dose, Wed07/23/20 at 2245, STAT NaCl 0.9% (NS) IV infusion Dose/Rate Verify 07/24/2020 12:56 AM CDT 150 mL/hr 1,000 mL at 150 mL/hr, Intravenous, CONTINUOUS, Starting Wed07/23/20 at 2245, Until Wed07/24/20 at 0449, Routine New Bag 07/23/2020 9:42 PM CDT 1,000 mL 150 mL/hr oxyCODONE immediate release tablet 5 mg Given 07/29/2020 11:55 PM CDT 5 mg 5 mg, Oral, Q6HPRN, Starting Wed07/29/20 at 0737, Until Wed07/30/20 at 0644, Routine, Pain (scale 7-10), philosophy faculty member approving Restricted medication: DARREN CHUN Given 07/29/2020 8:50 AM CDT 5 mg pantoprazole (PROTONIX) 40 mg in NaCl 0.9% Given 07/28/2020 10:0 5 PM CDT 40 mg (NS) 100 mL MINI-BAG 40 mg, IV Piggyback, Q12H, First dose on Wed07/24/20 at 0800, Until Discontinued, 100 mL Given 07/28/2020 9:30 AM CDT 40 mg Given 07/27/2020 8:29 PM CDT 40 mg piperacillin-tazobactam (ZOSYN) 3.375 g in Given 07/23 4:44 PM CDT 3.375 g NaCl 0.9% (NS) 100 mL MINI-BAG 3.375 g, IV Piggyback, ONCE, 1 dose, Wed07/23/20 at 1730, 100 mL, Reason for Anti-Infective: Documented Infection, Documented Infection Site: Abdominal, Duration of Therapy: 7 days piperacillin-tazobactam (ZOSYN) 3.375 g in Given 07/29 3:48 PM CDT 3.375 g NaCl 0.9% (NS) 100 mL MINI-BAG 3.375 g, IV Piggyback, Q6H ABX, First dose on Wed07/24/20 at 0200, Until Discontinued, 100 mL, Reason for Anti-Infective: Documented Infection, Documented Infection Site: Abdominal, Duration of Therapy: 7 days Given 07/29/2020 8:53 AM CDT 3.375 g Given 07/29/2020 3:24 AM CDT 3.375 g proMETHazine (PHENERGAN) 12.5 mg in NaCl Given 07/23/2020 2:01 PM CDT 12.5 mg 0.9% (NS) 50 mL piggyback 12.5 mg, IV Piggyback, ONCE, 1 dose, 07/23/20 at 1345, 50 mL proMETHazine (PHENERGAN) 12.5 mg in NaCl Given 07/23/2020 8:30 PM CDT 12.5 mg 0.9% (NS) 50 mL piggyback 12.5 mg, IV Piggyback, ONCE, 1 dose, 07/23/20 at 2030, 50 mL documented in this encounter Additional Health Concerns Infection Onset Date Last Indicated Resolved Time Droplet - Seasonal Influenza 01/06/2018 01/06/201807/2020 8:19 AM CDT COVID-19 Rule Out 07/23/2020 07/23/2020 07/23/2020 8: 08 PM CDT documented as of this encounter
--- OUTSIDE RECORDS SUMMARY | 2020-10-24 06:52 | XMS REPORT | Summary of Care ---
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/REFERRAL NARINDER FOREMAN Referring/Pcp Specific 2279 Prov Not In [facility] [address] [place] [address] (Routine) Status Reason Specialty Diagnoses / Referred By Referred To Procedures Contact Contact New Request Urology Diagnoses Ileostomy care Precious Chun MD Procedures CONSULT OSTOMY CARE 2279 [facility] [address] [place] [address] Reason for Visit Reason Comments Follow-up Post op (Routine) Status Reason Specialty Diagnoses / Referred By Referred To Procedures Contact Contact Closed CRS-COLON & RECTAL Diagnoses SBO (small bowel obstruction) Precious Chun MD SURGERY / Procedures Discharge Follow-Up: Specialty Service CRS-COLON & RECTAL SURGERY; 1 Week [address] [facility] Colorectal Surgery [facility] [address] [place] [address] Encounter Details Date Type Department Care Team Description 08/09/2020 [facility] Precious Chun MD SBO (small bowel obstruction) (Primary D x); Center-Colorectal [address] [facility] Ileos deb care Surgery South [address] [facility] [place] [address], [address]nd [place] [phone] Allergies Active Allergy Reactions Severity Noted Date [...] as of this encounter (statuses as of 08/12/2020) Medications Medication Sig Dispensed Refills Start Date End Date Status ALPRAZolam (XANAX) 2 Take 2 mg by 0 Active mg tablet mouth 2 (two) times daily. dextroamphetamine-amp Take 30 mg by 0 Active hetamine (ADDERALL) mouth 2 (two) 30 mg tablet times daily. Pantoprazole Take 40 mg by 0 Act pasha (PROTONIX) 40 mg mouth 2 (two) delayed-release times daily. suspension proMETHazine 25 mg Take 1 tablet by 12 tablet 0 08/18/2019 Active tabletIndications: mouth every 6 Generalized abdominal (six) hours as pain needed for Nausea and Vomiting (N/V). metoprolol tartrate Take 1 tablet by 60 tablet 0 08/24/2019 Active 25 mg mouth 2 (two) tabletIndications: times daily. Tachycardia acetaminophen 325 mg Take 2 tablets 50 tablet 1 08/01/2020 Active tabletIndications: by mouth every 6 SBO (small bowel (six) hours. obstruction) ibuprofen 600 mg Take 1 tablet by 40 tablet 0 08/01/2020 Active tabletIndications: mouth every 6 SBO (small bowel (six) hours. obstruction) loperamide 2 mg Take 1 capsule 14 capsule 1 08/01/2020 Active capsuleIndications: by mouth daily. SBO (small bowel obstruction) methocarbamoL 500 mg Take 1 tablet by 40 tablet 0 08/01/2020 Active tabletIndications: mouth 4 (four) SBO (small bowel times daily. obstruction) documented as of this encounter (statuses as of 08/12/2020) Active Problems Problem Noted Date SBO (small bowel obstruction) 07/24/2020 Crohn's disease of colon with complication 07/23/2020 Overview: Added automatically from request for kamilah [address] [id number] Sinus tachycardia 08/23/2019 Pneumonia 08/18/2019 Drug-seeking behavior 03/10/2019 Multifocal pneumonia 01/24/2018 Dehydration 01/05/2018 IBS (irritable bowel syndrome) 10/02/2011 Depression 10/02/2011 documented as of this encounter (statuses as of 08/12/2020) Social History Tobacco Use Types Packs/Day Years Used Date Current Every Day Smoker Smokeless Tobacco: Never Used Comments: 2-3 cigerette/day Alcohol Use Drinks/Week oz/Week [...] Sign Reading Time Taken Comments Blood Pressure 153/83 08/09/2020 10:40 AM CDT Pulse 143 08/09/2020 10:40 AM CDT Temperature 36.8 C (98.3 F) 08/09/2020 10:40 AM CDT Respiratory Rate - - Oxygen Saturation 100% 08/09/2020 10:40 AM CDT Inhaled Oxygen Concentration - - Weight 56.5 kg (124 lb 8 oz) 08/09/2020 10:40 AM CDT Height 170.2 cm (5' 7") 08/09/2020 10:40 AM CDT Body Mass Index 19.5 08/09/2020 10:40 AM CDT documented in this encounter Progress Notes Ami Hunter RN - 08/09/2020 10:45 AM CDTObtained [facility] clinical [facility] of Crohns diagnosis. Also obtained informatin for [facility] to start DME order through them. Will call to obtain fax information. Ami Hunter RN Ryan Pierson MD - 08/09/2020 10:45 AM CDT Colorectal Surgery Clinic Note CC: postoperative follow up visit HPI: Jessiac Farah is a 44 year old female with PMH of Crohns (tentative diagnosis at OSH) and closed-loop SBO s/p lap converted to open ileocectomy, small bowel resection (45cm of ileum) and end ileostomy with mucus fistula on 07/25/2020. She was discharged from the hospital on 08/01. Since discharge she reports persistent nausea and abdominal pain. Denies vomiting, but PO intake has been minimal. Reports adequate liquid ileostomy output, empties the bag multiple times daily. Denies fever, chills. REVIEW OF SYSTEMS (BOLDED if positive. Otherwise negative.) General: weight changes, fatigue, fever Eyes: corrective lenses, pain, blurred vision ENT: hearing problems, earaches, allergies, nose bleeds Skin: rashes, lumps Respiratory: cough, wheeze, shortness of breath Cardiac: chest discomfort, palpitations Gastrointestinal: nausea, vomiting, blood in stool, abdominal pain Musculoskeletal: muscle cramps, back pain, joint pain, weakness, tingling Immunologic: food allergies, recurrent infections Urinary: increased frequency, burning, urinating at night, incontinence Psychiatric: anxiety, depression Endocrine: thyroid trouble, diabetes Neurologic: fainting, seizures, loss of memory, headaches Past Medical History: Past Medical History: Diagnosis Date Crohn disease IBS (irritable bowel syndrome) Past Surgical History: Past Surgical History: Procedure Laterality Date SECTION X 2 HYSTERECTOMY 2010 ILEOCECECTOMY N/A 07/25/2020 Surgeon: Precious Chun MD; Location: [facility] Location ILEOSTOMY N/A 07/25/2020 Surgeon: Precious Chun MD; Location: [facility] Kristine TUBAL LIGATION 1996 Family History: History reviewed. No pertinent family history. 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 50 tablet 1 ibuprofen 600 mg tablet Take 1 tablet by mouth every 6 (six) hours. 40 tablet 0 loperamide 2 mg capsule Take 1 capsule by mouth daily. 14 capsule 1 methocarbamoL 500 mg tablet Take 1 tablet by mouth 4 (four) times daily. 40 tablet 0 metoprolol tartrate 25 mg tablet [...] mg by mouth 2 (two) times daily. No current facility-administered medications for this visit. Allergy: Allergies Allergen Reactions Bentyl [Dicyclomine] Hives and Swelling Caffeine Hives and Swelling Fentanyl Hcl Hives Reglan [Metoclopramide Hcl] Itching Sulfa (Sulfonamide Antibiotics) Nausea and/or Vomiting Talwin [Pentazocine Lactate] Hives and Swelling Toradol [Ketorolac Tromethamine] Hives Tramadol Itching and Swelling Zofran [Ondansetron Hcl (Pf)] Itching Morphine Itching Reports she tolerates Morphine with benadryl Physical Exam: Temp: [36.8 C (98.3 F)] Pulse: [143] BP: (153)/(83) Constitutional: Well developed, mild acute distress General: A & O x 3 to person, place and situation HEENT: no scleral icterus, moist mucous membranes Respiratory: clear to auscultation bilaterally Cardio: regular rate and rhythm Abdomen: soft, nondistended, moderately tender to incision site; RLQ ileostomy pink and moist with liquid stool in bag. Midline incision well-healed. Extremities: DP and PT pulses 3+ bilaterally. No edema. Skin: no rashes Radiology: Xr Abdomen 1 Vw Result Date: 07/24/2020 EXAM: XR ABDOMEN 1 VW 07/24/2020 1:46 AM. INDICATION: 44 years-old Female, with NGt placement COMPARISON: CT abdomen, 07/23/2020 TECHNIQUE: Frontal radiograph of the abdomen and pelvis. FINDINGS: The tip of the NGT is at the gastric fundus, with the sidehole projecting over the EG junction. Multiple dilated small bowel loops in the left upper quadrant are redemonstrated. Preliminary Report Dictated by Resident: Neda John I reviewed this study and agree. IShahriar MD., have reviewed this study and agree with the above report. Ct Abdomen Pelvis W Contrast Result Date: 07/23/2020 CT Abdomen and Pelvis with intravenous contrast. [...] in the cul-de-sac. Small lymph nodes are se en in the right lower quadrant of the abdomen. Pancreas and Adrenals: Unremarkable pancreas and adrenal glands. Kidneys and Ureters: No visible calculi in the renal collecting systems. No hydroureteror hydronephrosis. Vessels: Normal. Retroperitoneum: No abnormal fluid or lymphadenopathy. Bowel: Several ileal loops are dilated up to 3.5 cm with submucosal edema, congestion of the surrounding mesentery and small amount of fluid surrounding abnormal bowel loops. Some of the bowel loops proximal tothe edematous ileum with distended with gas. Appendix is not visualized, however, findings are not villela ggestive of acute appendicitis. Bladder and Reproductive Organs: [...] findings are not suggestive of acute appendicitis. Xr Kub Result Date: 07/29/2020 EXAM: XR KUB 07/29/2020 4:42 AM. INDICATION: 44 years-old Female, with abdominal pain, patient is POD4 s/p ileocecectomy, additional small bowel resection, and end ileostomy?with mucous fistula?creation. COMPARISON: CT AP W, 07/23/2020. TECHNIQUE: Frontal radiographs of the abdomen and pelvis, 4 images. FINDINGS: The tip of a surgical drain projects over right hemipelvis. A dilated loop of the small bowel projects over the LLQ, 4.9 cm, suspicious for incomplete small bowel obstruction. A long row of vertical surgical sutures lies to the left of the spine. Preliminary Report Dictated by Resident: Neda John I reviewed this study and agree with minor modifications (no call needed to the referring physician). I, Shahriar Lozano MD., have reviewed this study and agree with the above report. Assessment & Plan: Jessica Farah is a 44 year old female with PMH of Crohns (tentative diagnosis at OSH) and closed-loop SBO s/p lap converted to open ileocectomy, small bowel resection, and end ileostomy with mucus fistula on 07/25/2020. Persistent nausea since discharge, however ileostomy healthy and functioning. 1. Remove asia in clinic today 2. RTC in one month 3. Referral to ostomy clinic for ostomy care 4. Ensure TID with meals Patient seen and discussed with faculty, Dr. Chun. Ryan Rinaldi MD General Surgery, PGY-2 ATTESTATION: I agree with the resident's note as written. I actively participated in the decision making process.Please see the resident's note for additional details. [place] removed. Stoma pink, patent. There is some peristomal skin irritation at the superior/right aspect of the stoma. I applied a ring with a one piece appliance using the supplies she brought with her. I explained how the ring would fill in the fold where her stoma is located and allow the appliance to stay on better without leaking onto the skin. I also recommended that she follow up with Deepika Anthony in her clinic. Plan to request OSH records of her Crohn's. She will RTC in 4 weeks to review planfor possible stoma closure. Precious Chun MD [place] Colon and Rectal Surgery documented in this encounter Plan of Treatment Date Type Specialty Care Team Description 08/20/2020 Nurse Visit Deepika Vaughan, RN [address] [place] [address] 09/06/2020 Office Visit Colorectal Surgery Precious Chun MD 2280 [facility] [address] [place] [address] [phone] Health Maintenance Due Date Last Done Comments PNEUMOCOCCAL 0-64 YEARS COMBINED SERIES (1 1980 of 3 - PCV13) Depression Screening 1986 DTaP,Tdap,and Td Vaccines (1 - Tdap) 1993 PAP SMEAR 07/28/2014 07/28/2011 Breast Cancer Screening (MAMMOGRAM) 2014 INFLUENZA VACCINE (#1) 2020 COLON CANCER SCREENING ANNUAL FIT/FOBT 2024 9, 01/05/2018 Colorectal Cancer Screening 2024 documented as of this encounter Results Not on filedocumented in this encounter Visit Diagnoses Diagnosis SBO (small bowel obstruction) - Primary Unspecified intestinal obstruction Ileostomy care Attention to ileostomy documented in this encounter
--- OUTSIDE RECORDS SUMMARY | 2020-10-24 06:52 | XMS REPORT | Summary of Care ---
:1975 Author Organization [facility] Address [address] [place] [address] Care Team Providers Name Role Phone Pcp, Does Not Have A Primary Care Provider Reason for Visit Reason Comments Talk To Nurse Encounter Details Date Type Department Care Team Description 08/05/2020 Telephone [facility] Precious Chun MD Talk To Nurse [facility] 2280 [facility] 2280 [facility] [address] [place] [address] [place], [place] [phone] Allergies Active Allergy Reactions Severity Noted Date [...] as of this encounter (statuses as of 08/05/2020) Medications Medication Sig Dispensed Refills Start Date [...] mouth 2 (two) tabletIndications: times daily. Tachycardia HYDROmorphone 2 mg Take 1 tablet by 15 tablet 0 08/01/2020 Active tabletIndications: mouth every 6 acute pain (six) hours as needed for Pain (scale 7-10) for up to 7 days. Indications: acute pain acetaminophen 325 mg Take 2 tablets 50 [...] as of this encounter (statuses as of 08/05/2020) Active Problems Problem Noted Date SBO (small bowel obstruction) 07/24/2020 Crohn's disease of colon with complication 07/23/2020 Overview: Added automatically from request for kamilah early [id number] Sinus tachycardia 08/23/2019 Pneumonia 08/18/2019 Drug-seeking behavior 03/10/2019 Multifocal pneumonia 01/24/2018 Dehydration 01/05/2018 IBS (irritable bowel syndrome) 10/02/2011 Depression 10/02/2011 documented as of this encounter (statuses as of 08/05/2020) Social History Tobacco Use Types Packs/Day Years Used Date Current Every Day Smoker Smokeless Tobacco: Never Used Comments: 2-3 cigerette/day Alcohol Use Drinks/Week oz/Week Comments No Education Answer Date Recorded What is the highest level of school you have High school gra duate 07/24/2020 completed or the highest degree you [...] of this encounter Last Filed Vital Signs Not on filedocumented in this encounter Miscellaneous Notes Telephone Encounter - Maren Villanueva AGNP - 08/05/2020 10:33 AM CDTPatient states that her wound does not have a discharge, no fever and the skin is not warm to touch.She thinks her navel has an odor as she was told not to shower after the surgery. I informed patientthat she can take a shower and make sure the incision is completely dry. She can take Tylenol and ibuprofen for pain as needed. She verbalized understanding and will have a follow up appointment on 08/09/20. elephone Encounter - Danielle Bain - 08/05/2020 9:50 AM CDTPatient is calling regarding her surgery site, its ryley as a odor but no discharge. Please call documented in this encounter Plan of Treatment Date Type Specialty Care Team Description 08/09/2020 Office Visit Colorectal Surgery Precious Chun MD [address] [facility] [address] [place] [address] Health Maintenance Due Date Last Done Comments [...]
--- OUTSIDE RECORDS SUMMARY | 2020-10-24 06:52 | XMS REPORT | Summary of Care ---
:1975 Author Organization [facility] Address [address] [place] [address] Care Team Providers Name Role Phone Pcp, Does Not Have A Primary Care Provider Reason for Visit Reason Comments Transition Of Care Encounter Details Date Type Department Care Team Description 08/02/2020 Transition of Care [facility] Destinee Ramirez Tr [facility]- RN [address] [address] Allergies Active Allergy Reactions Severity Noted Date [...] as of this encounter (statuses as of 08/02/2020) Medications Medication Sig Dispensed Refills Start Date [...] as of this encounter (statuses as of 08/02/2020) Active Problems Problem Noted Date SBO (small bowel obstruction) 07/24/2020 Crohn's disease of colon with complication 07/23/2020 Overview: Added automatically from request for kamilah [place] [id number] Sinus tachycardia 08/23/2019 Pneumonia 08/18/2019 Drug-seeking behavior 03/10/2019 Multifocal pneumonia 01/24/2018 Dehydration 01/05/2018 IBS (irritable bowel syndrome) 10/02/2011 Depression 10/02/2011 documented as of this encounter (statuses as of 08/02/2020) Social History Tobacco Use Types Packs/Day Years [...] this encounter Miscellaneous Notes Telephone Encounter - Destinee Ramirez RN - 08/02/2020 12:37 PM CDT TRANSITIONAL CARE MANAGEMENT ASSESSMENT 08/02/2020 Jessica Farah [id number] Jessica Farah is a 44 year old Black or female was admitted on 07/23/[address] She was discharged on 08/01/20 with discharge disposition of HR- Routine Discharge. Admitting Physician: Farooq Zepeda Discharge Diagnosis: small bowel obstruction Linked Episodes Type: Episode: Status: Noted: Resolved: Last update: Updated by: TRANSITION OF CARE TCM Active 08/01/2020 08/02/2020 12:34 PM Destinee Ramirez RN Comments:08/01/2020 TCM [id number] outreach documentation: Discharge Assessment Chart Assessed: 08/02/20 TCM Outreach Completed: 08/02/20 Do you have a few minutes to speak with me about how you are doing at home?: Yes Discharge Instructions Do you understand your at-home instructions?: Yes Medications Have you filled your prescriptions and do you have them in your home? : See comments(Some medications available and one not. she will get soon) Do you know how to take your medications?: Yes Supplies Did you receive applicable home medical supplies/equipment?: N/A Follow Up Appointment Has a follow up appointment been scheduled?: Yes Do you have any questions about your follow up appointments?: No Are you able to get to your appointment? Who will be taking you?: Yes Home Health Assistance Has the home health nurse contacted you since you've been home?: N/A Survey - Recognition Is there anything you would like to share about your recent hospitalization, or anyone you would like to recognize?: No Do you have any suggestions for improvement?: No Do you have any other questions or concerns at this time?: No Patient stated she will call CM back Wednesday with additional questions about indigent applications. Future Appointments: Future Appointments Provider Department Dept Phone 08/09/2020 10:45 AM Precious Chun MD [facility]-Colorectal Surgery [phone] documented in this encounter Plan of Treatment Date Type Specialty Care Team Description 08/09/2020 Office Visit Colorectal Surgery Precious Chun MD 2280 [facility] [address] [place] [address] [phone] Health Maintenance Due Date Last Done Comments [...]
--- OUTSIDE RECORDS SUMMARY | 2020-10-24 06:52 | XMS REPORT | Summary of Care ---
:1975 Author Organization [facility] Address [address] [place] [address] Care Team Providers Name Role Phone Pcp, Does Not Have A Primary Care Provider Reason for Referral (Routine) Status Reason Specialty Diagnoses / Referred By Referred To Procedures Contact Contact Authorized Patient Colorectal Diagnoses Ileostomy care Precious Chun Syst, Requested Surgery Procedures CONSULT/REFERRAL NARINDER FOREMAN Referring/Pcp Specific 2279 Prov Not In [facility] [address] [place] [address] (Routine) Status Reason Specialty Diagnoses / Referred By Referred To Procedures Contact Contact New Request Urology Diagnoses Ileostomy care Precious Chun MD Procedures CONSULT OSTOMY CARE 2279 [facility] [address] [place] [address] Reason for Visit Reason Comments Follow-up Post op (Routine) Status Reason Specialty Diagnoses / Referred By Referred To Procedures Contact Contact Closed CRS-COLON & RECTAL Diagnoses SBO (small bowel obstruction) Precious Chun MD SURGERY / Procedures Discharge Follow-Up: Specialty Service CRS-COLON & RECTAL SURGERY; 1 Week 2279 [facility] Colorectal Surgery [facility] [address] [place] [address] Encounter Details Date Type Department Care Team Description 08/09/2020 Office Visit [facility] Cancer Precious Chun MD SBO (small bowel obstruction) (Primary D x); Center-Colorectal 2279 [facility] Ileos deb care Surgery South 2280 [facility] [place] [address], [address]nd [place] [phone] Allergies Active Allergy Reactions Severity Noted Date [...] Added automatically from request for kamilah lane [id number] Sinus tachycardia 08/23/2019 Pneumonia 08/18/2019 Drug-seeking behavior [...] RN - 08/09/2020 10:45 AM CDTObtained [facility] and clinical reports of Crohns diagnosis. Also obtained informatin for [facility] to start DME order through them. Will call to obtain fax information. 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 [place] removed. Stoma pink, patent. There is some [...] 08/20/2020 Nurse Visit Deepika Vaughan, RN [address] [place] [address] 09/06/2020 Office Visit Colorectal Surgery Precious Chun MD 2280 [facility] [address] [place] [address] [phone] Health Maintenance Due Date Last Done Comments [...]
--- OUTSIDE RECORDS SUMMARY | 2020-10-24 06:53 | XMS REPORT | Summary of Care ---
:1975 Author Organization [facility] Address [address] [place] [id number] Care Team Providers Name Role Phone Pcp, Does Not Have A Primary Care Provider Reason for Visit Reason Comments Forms FMLA Encounter Details Date Type Department Care Team Description 08/20/2020 Telephone [facility] Cancer Precious Chun MD Forms (FMLA) [facility] [address] [facility] [address] [facility] 2.[address] [place] [address] [place] [phone] Allergies Active Allergy Reactions [...] as of this encounter (statuses as of 08/22/2020) Medications Medication Sig Dispensed Refills Start Date [...] (four) SBO (small bowel times daily. obstruction) proMETHazine 25 mg Take 1 tablet by 12 tablet 0 08/17/2020 Active tabletIndications: mouth every 6 Nausea and vomiting (six) hours as in adult needed for Nausea and Vomiting (N/V). documented as of this encounter (statuses as of 08/22/2020) Active Problems Problem Noted Date SBO (small bowel obstruction) 07/24/2020 Crohn's disease of colon with complication 07/23/2020 Overview: Added automatically from request for kamilah domingo [id number] Sinus tachycardia 08/23/2019 Pneumonia 08/18/2019 Drug-seeking behavior 03/10/2019 Multifocal pneumonia 01/24/2018 Dehydration 01/05/2018 IBS (irritable bowel syndrome) 10/02/2011 Depression 10/02/2011 documented as of this encounter (statuses as of 08/22/2020) Social History Tobacco Use Types Packs/Day Years [...] been in contact with No / Unsure 08/20/2020 11:19 AM CDT someone who was confirmed or suspected to have Coronavirus / COVID-19? documented as of this encounter Last Filed Vital Signs Not on filedocumented in this encounter Miscellaneous Notes Telephone Encounter - Ami Hunter RN - 08/22/2020 10:20 AM CDTProvider signed. Faxed to Xi Fajardo [phone] Submitted to be uploaded into [place]. Ami Hunter RN Telephone Encounter - Ami Hunter RN - 08/20/2020 9:58 AM CDTForms completed, 07/23/2020 - 09/09/2020 Will have provider review dates, sign if agreed. Pending provider signature. Ami Hunter RN Telephone Encounter - Kamille Ramírez - 08/20/2020 8:10 AM CDTReceived FMLA paperwork. Forms placed in folder for completion. documented in this encounter Plan of Treatment Date Type Specialty Care Team Description 09/03/2020 Nurse Visit Surgery Deepika Anthony RN [address] [place] [id number] 09/06/2020 Office Visit Colorectal Surgery Precious Chun MD [address] [facility] [address] [place] [address] [phone] Health Maintenance Due Date Last Done Comments [...] Results Not on filedocumented in this encounter Insurance Payer Benefit Plan / Subscriber ID Effective Phone Address T ype Group Dates MEDICAID MEDICAID SSI PENDING 2020-Pres [address] [address] documented as of this encounter
--- OUTSIDE RECORDS SUMMARY | 2020-10-24 06:53 | XMS REPORT | Summary of Care ---
:1975 Author Organization [facility] Address [address] [place] [address] Care Team Providers Name Role Phone Pcp, Does Not Have A Primary Care Provider Reason for Referral MRI/CAT Scan (STAT) Status Reason Specialty Diagnoses / Referred By Referred To Procedures Contact Contact New Request Diagnostic Diagnoses Generalized abdominal pain Shayla Munoz Radiology Procedures CT ABDOMEN PELVIS W PRIYA Soliz MD [address] [place] [address] [id number] [place] [address] Reason for Visit Reason Comments Other ostomy check Auth/Cert Status Reason Specialty Diagnoses / Referred By Referred To Procedures Contact Contact Emergency Medicine [facility] Dept [address] [place] [id number] Fax: Encounter Details Date Type Department Care Team Description 08/17/2020 - Emergency ADC-Emergency Shayla Munoz Generaliz ed abdominal pain (Primary Dx); 08/18/2020 Department Breast nodule; [address] [place] [address] Skin irrit ation; Drive [id number] Mild dehydration; [place] [address] [place], [place] Transaminitis; [phone] [id number] Nausea and vomiting in adult [phone] Allergies Active Allergy Reactions Severity Noted Date [...] as of this encounter (statuses as of 08/18/2020) Medications Medication Sig Dispensed Refills Start Date [...] as of this encounter (statuses as of 08/18/2020) Active Problems Problem Noted Date SBO (small bowel obstruction) 07/24/2020 Crohn's disease of colon with complication 07/23/2020 Overview: Added automatically from request for [address] [id number] Sinus tachycardia 08/23/2019 Pneumonia 08/18/2019 Drug-seeking behavior 03/10/2019 Multifocal pneumonia 01/24/2018 Dehydration 01/05/2018 IBS (irritable bowel syndrome) 10/02/2011 Depression 10/02/2011 documented as of this encounter (statuses as of 08/18/2020) Social History Tobacco Use Types Packs/Day Years [...] been in contact with No / Unsure 08/17/2020 7:45 PM CDT someone who was confirmed or suspected to have Coronavirus / COVID-19? documented as of this encounter Last Filed Vital Signs Vital Sign Reading Time Taken Comments Blood Pressure 115/79 08/17/2020 11:00 PM CDT Pulse 104 08/17/2020 11:00 PM CDT Temperature 37.1 C (98.7 F) 08/17/2020 7:44 PM CDT Respiratory Rate 17 08/17/2020 11:00 PM CDT Oxygen Saturation 100% 08/17/2020 11:00 PM CDT Inhaled Oxygen Concentration - - Weight 56.7 kg (125 lb) 08/17/2020 7:44 PM CDT Height - - Body Mass Index 19.58 08/09/2020 10:40 AM CDT documented in this encounter Discharge Instructions Shayla Escalona MD - 08/17/2020 DIAGNOSIS Diagnoses that have been ruled out: None Diagnoses that are still under consideration: None Final diagnoses: Generalized abdominal pain Breast nodule Skin irritation Mild dehydration Transaminitis NO LIFE-THREATENING FINDINGS ON TODAY'S EXAM. PROCEDURES IN THE ER TODAY: Orders Placed This Encounter Procedures CT ABDOMEN PELVIS W CONTRAST CBC WITH DIFF COMP. METABOLIC PANEL (01943) LIPASE COVID-19 (ID NOW RAPID TESTING) MEDICATIONS ADMINISTERED IN THE ER TODAY AND DISCHARGE MEDICATIONS: Orders Placed This Encounter Medications NaCl 0.9% (NS) IV infusion 1,000 mL diphenhydrAMINE (BENADRYL) injection 25 mg morpHINE injection 4 mg proMETHazine (PHENERGAN) 25 mg in NaCl 0.9% (NS) 50 mL piggyback iohexol (OMNIPAQUE 350 BULK-150 mL) injection 119 mL morpHINE injection 4 mg proMETHazine (PHENERGAN) 25 mg in NaCl 0.9% (NS) 50 mL piggyback NaCl 0.9% (NS) bolus infusion 500 mL FOLLOW-UP RECOMMENDATIONS: RECOMMEND FOLLOW-UP WITH A PRIMARY CARE PROVIDER OR SPECIALIST IN 2-5 DAYS, ESPECIALLY IF NO IMPROVEMENT IN SYMPTOMS. MAY FOLLOW-UP WITH A PROVIDER OF YOUR CHOICE, SUCH : 1. A PHYSICIAN OF YOUR CHOICE 2. [facility], . LOCATIONS IN [facility] 3. [facility], [address] [place] [address]; [phone] OR, IF YOU WISH TO FOLLOW-UP WITHIN THE [facility], MAY TRY THESE OPTIONS (CLINIC APPOINTMENTS AVAILABLE ON UZHS-HD-EEFT BASIS): 1. SCHEDULE AN APPOINTMENT ONLINE AT WWW[facility] 2. OR CALL THE [facility] AT OR 3. OR CALL YOUR [facility] PHYSICIAN'S OFFICE DIRECTLY IF YOU ARE ALREADY AN ESTABLISHED [facility] PATIENT. RETURN TO ER FOR WORSENING OF SYMPTOMS KEEP YOUR WOUND CARE CLINIC WELL YOUR GENERAL SURGERY CLINIC APPOINTMENTS SCHEDULED FOLLOW-UP ON THE BREAST NODULE WITH YOUR PRIMARY CARE PROVIDER FOR FURTHER EVALUATION CONTINUE DILAUDID OR OTHER ANALGESICS PRESCRIBED FOR YOU documented in this encounter ED Notes Khurram Whiting RN - 08/17/2020 7:41 PM CDTPt boyfriend brought here here for ostomy check. Patient was sent from here to [place] about a month ago for SBO and subsequent ileostomy was placed. Patient reports that she has been changing it every two to three days without incidence. Starting this most recent Wednesday she noticed some reddened irritation on skin around ostomy and has not been able to replace bag due to pain. Patient reports that this morning the pain is increased as well as nausea. 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 Pain is rated at 8/10 and is continuous. Pain is "burning" in nature and non radiating. Has vomited X 2 and reports being nauseated. No fever/chills. Pt also reports bladder 'spasm" X 1 week. Denies any burning on urination, no frequency of urination. Pt has taken Dilaudid at home. Abdominal Pain Associated symptoms: nausea and vomiting Associated symptoms: no chills, no cough, no fatigue, no fever and no shortness of breath Past Medical History/Immunizations: Past Medical History: Diagnosis Date Crohn disease IBS (irritable bowel syndrome) Tetanus received in last 5 years: Unknown Childhood immunizations: Up-to-date Allergies: Allergies Allergen Reactions Bentyl [Dicyclomine] Hives and Swelling Caffeine Hives and Swelling Fentanyl Hcl Hives Reglan [Metoclopramide Hcl] Itching Sulfa (Sulfonamide Antibiotics) Nausea and/or Vomiting Talwin [Pentazocine Lactate] Hives and Swelling Toradol [Ketorolac Tromethamine] Hives Tramadol Itching and Swelling Zofran [Ondansetron Hcl (Pf)] Itching Morphine Itching Reports she tolerates Morphine with benadryl Past Social History: Tobacco Use Current Every Day Smoker. Smokeless Tobacco: Never used smokeless tobacco. Comments: 2-3 cigerette/day Alcohol Use No. Drug Use No. Sexual Activity Sexually active. Past Surgical History: Past Surgical History: Procedure Laterality Date SECTION X 2 HYSTERECTOMY 2010 ILEOCECECTOMY N/A 07/25/2020 Surgeon: Precious Chun MD; Location: [facility] OR Location ILEOSTOMY N/A 07/25/2020 Surgeon: Precious Chun MD; Location: [facility] OR Location TUBAL LIGATION 1996 Review of Systems: Review of Systems Constitutional: Positive for appetite change. Negative for chills, diaphoresis, fatigue, fever and unexpected weight change. Eyes: Negative. Respiratory: Negative. Negative for cough, shortness of breath, wheezing and stridor. Breasts: Negative. Cardiovascular: Negative. Gastrointestinal: Positive for abdominal pain, nausea and vomiting. Genitourinary: Negative. Musculoskeletal: Negative. Skin: Positive for wound. Neurological: Negative. Psychiatric/Behavioral: Negative. Endocrine: Endocrine negative Physical Exam: ED Triage Vitals [08/17/201943] Weight 56.7 kg (125 lb) Actual or estimated Height BP 135/90 Pulse 120 Resp 21 Temp 37.1 C (98.7 F) Temp source Oral SpO2 100 % Measured on Physical Exam Vitals signs and nursing note reviewed. Constitutional: General: She is not in acute distress. Appearance: Normal appearance. She is well-developed and normal weight. She is toxic-appearing. She is not ill-appearing or diaphoretic. HENT: Head: Normocephalic and atraumatic. Nose: Nose normal. No congestion or rhinorrhea. Mouth/Throat: Mouth: Mucous membranes are moist. Pharynx: Oropharynx is clear. No oropharyngeal exudate or posterior oropharyngeal erythema. Eyes: General: No scleral icterus. Right eye: No discharge. Left eye: No discharge. Extraocular Movements: Extraocular movements intact. Conjunctiva/sclera: Conjunctivae normal. Pupils: Pupils are equal, round, and reactive to light. Neck: Musculoskeletal: Normal range of motion and neck supple. Thyroid: No thyromegaly. Cardiovascular: Rate and Rhythm: Normal rate and regular rhythm. Pulses: Normal pulses. Heart sounds: Normal heart sounds. No murmur. Pulmonary: Effort: Pulmonary effort is normal. No respiratory distress. Breath sounds: Normal breath sounds. No stridor. No wheezing or rales. Chest: Chest wall: No tenderness. Abdominal: General: Bowel sounds are normal. There is no distension. Palpations: Abdomen is soft. There is no mass. Tenderness: There is no abdominal tenderness. There is no right CVA tenderness, left CVA tenderness, guarding or rebound. Hernia: No hernia is present. Comments: Stoma pink and patent Liquid stool in pouch, non bloody Has peristomal skin irritation Musculoskeletal: Normal range of motion. General: No tenderness or deformity. Lymphadenopathy: Cervical: No cervical adenopathy. Skin: General: Skin is warm and dry. Capillary Refill: Capillary refill takes less than 2 seconds. Coloration: Skin is not jaundiced or pale. Findings: No bruising, erythema, lesion or rash. Neurological: General: No focal deficit present. Mental Status: She is alert and oriented to person, place, and time. Cranial Nerves: No cranial nerve deficit. Sensory: No sensory deficit. Motor: No abnormal muscle tone. Coordination: Coordination normal. Gait: Gait normal. Deep Tendon Reflexes: Reflexes normal. Psychiatric: Mood and Affect: Mood normal. Behavior: Behavior normal. Thought Content: Thought content normal. Judgment: Judgment normal. Radiology: Hospital Encounter on 08/17/20 CT ABDOMEN PELVIS W CONTRAST Addendum: 08/17/2020 * * * * * * * * ADDENDUM: * * * * * * * * The finding regarding left breast nodule was discussed with Dr Munoz at 08/17/2020 10:53 PM Preliminary Report Dictated by Resident: Rhett Venegas MD., have reviewed this study and agree with the above report. Narrative EXAM: CT ABDOMEN PELVIS W CONTRAST HISTORY: Abd pain, acute, generalized s/p iLEOSTOMY WITH aBDOMINAL PAIN, nAUSEA/vOMITING 43-year-old female with Crohn's disease. COMPARISON: Abdominal CT-07/23/2020 DOSE: 334 mGy*cm TECHNIQUE AND FINDINGS: Contiguous axial imaging from the level of the lung bases through the proximal thighs was performed after the uncomplicated administration intravenous contrast. Coronal and sagittal reconstructions were obtained. Auto mA and/or iterative reconstruction were used to reduce radiation dose. FINDINGS: LOWER THORAX: Left lower lobe subsegmental atelectasis. 1.1 cm right breast nodule (2:29 and 4:48). LIVER: No focal hepatic lesions. Normal contour. GALLBLADDER AND BILIARY TREE: No biliary ductal dilation. No radiopaque cholelithiasis. No gallbladder wall thickening. PANCREAS: No ductal dilation or masses. Evidence of pancreatic divisum. SPLEEN: No splenomegaly. ADRENAL GLANDS: No adrenal nodules. KIDNEYS: No hydronephrosis, stones, or masses. Kidneys enhance symmetrically. PERITONEUM AND RETROPERITONEUM: No free air or fluid. Left paramedian ventral hernia containing fat fluid level with peripheral enhancement (2:62). No significant surrounding fluid or change. Left upper quadrant mesenteric stranding and prominent vessels suggesting hyperemia. LYMPH NODES: No lymphadenopathy. Multiple subcentimeter lymph nodes scattered throughout the mesentery are thought to be reactive. VESSELS: Patent abdominal vasculature. GI TRACT: Postsurgical changes of right lower quadrant colectomy with right lower quadrant and diverting ileostomy (portions of the residual right colon extending to the stoma). Rectosigmoid wall thickening is noted. No evidence of small bowel obstruction. Mucosal hyperenhancement within the rectum and rectosigmoid with mild mural thickening (probably exaggerated by decompressed state). Small sliding-type hiatal hernia with mild distal esophageal thickening. PELVIS/BLADDER: Bladder wall slightly thickened, for the degree of distention. Status post hysterectomy. Vagina appears mildly thickened. BONES AND SOFT TISSUES: No acute osseous abnormality. Midline surgical scar is seen. Mild multilevel wedging at thoracolumbar junction anterior superior endplates is probably degenerative in nature. Prominent degenerative changes at bilateral hips. Impression Status post ileocecectomy with right lower quadrant diverting ileostomy. Rectosigmoid colon wall thickening with mild mural hyperenhancement may reflect active inflammatory bowel disease. Mild inflammatory changes can be seen elsewhere in the colon (to lesser extent). Correlate clinically. Ventral hernia containing fat and fluid faint peripheral enhancement. Sterility is unclear. However, there is no significant inflammatory change in this region. Slightly thickened bladder wall for the degree of distention. Correlate with urinalysis. Left breast 1.1 cm nodule. Correlate with ultrasound and/or mammography Preliminary Report Dictated by Resident: Gumaro Diamond I, Rhett Harden MD., have reviewed this study and agree with the above report. Lab Results (24h): Recent Results (from the past 24 hour(s)) CBC WITH DIFF Collection Time: 08/17/20 8:23 PM Result Value Ref Range WBC 4.54 4.30 - 11.10 10*3/L RBC 4.12 3.93 - 5.25 10*6/L HGB 12.8 11.6 - 15.0 g/dL HCT 38.9 35.7 - 45.2 % MCV 94.4 80.6 - 95.5 fL MCH 31.1 25.9 - 32.8 pg MCHC 32.9 31.6 - 35.1 g/dL RDW-SD 41.1 39.0 - 49.9 fL RDW-CV 11.8 (L) 12.0 - 15.5 % PLT 353 166 - 358 10*3/L MPV 10.4 9.5 - 12.9 fL NRBC/100 WBC 0.0 0.0 - 10.0 /100 WBCs NRBC x10^3 <0.01 10*3/L GRAN MAT (NEUT) % 50.9 % IMM GRAN % 0.40 % LYMPH % 35.9 % MONO % 9.9 % EOS % 2.2 % BASO % 0.7 % GRAN MAT x10^3(ANC) 2.31 1.88 - 7.09 10*3/uL IMM GRAN x10^3 <0.03 0.00 - 0.06 10*3/uL LYMPH x10^3 1.63 1.32 - 3.29 10*3/uL MONO x10^3 0.45 0.33 - 0.92 10*3/uL EOS x10^3 0.10 0.03 - 0.39 10*3/uL BASO x10^3 0.03 0.01 - 0.07 10*3/uL COMP. METABOLIC PANEL (35243) Collection Time: 08/17/20 8:23 PM Result Value Ref Range NA 135 135 - 145 mmol/L K 4.1 3.5 - 5.0 mmol/L CL 96 (L) 98 - 108 mmol/L CO2 TOTAL 30 23 - 31 mmol/L AGAP 9 2 - 16 BUN 17 7 - 23 mg/dL GLUCOSE 149 (H) 70 - 110 mg/dL CREATININE 1.21 (H) 0.50 - 1.04 mg/dL TOTAL BILI 0.7 0.1 - 1.1 mg/dL CALCIUM 10.5 8.6 - 10.6 mg/dL T PROTEIN 8.6 (H) 6.3 - 8.2 g/dL ALBUMIN 4.4 3.5 - 5.0 g/dL ALK PHOS 170 (H) 34 - 122 U/L ALTv 145 (H) 5 - 35 U/L AST(SGOT) 70 (H) 13 - 40 U/L eGFR Calculation (Non-) 48.1 mL/min/1.73m2 eGFR Calculation () 58.3 mL/min/1.73m2 LIPASE Collection Time: 08/17/20 8:23 PM Result Value Ref Range LIPASE 172 0 - 220 U/L COVID-19 (ID NOW RAPID TESTING) Collection Time: 08/17/20 8:23 PM Specimen: NASOPHARYNGEAL SWAB Result Value Ref Range SARS-CoV-2 Rapid ID NOW Not Detected Not Detected Orders and Treatments: Orders Placed This Encounter Procedures CT ABDOMEN PELVIS W CONTRAST CBC WITH DIFF COMP. METABOLIC PANEL (05879) LIPASE COVID-19 (ID NOW RAPID TESTING) Orders Placed This Encounter Medications NaCl 0.9% (NS) IV infusion 1,000 mL diphenhydrAMINE (BENADRYL) injection 25 mg morpHINE injection 4 mg proMETHazine (PHENERGAN) 25 mg in NaCl 0.9% (NS) 50 mL piggyback iohexol (OMNIPAQUE 350 BULK-150 mL) injection 119 mL morpHINE injection 4 mg proMETHazine (PHENERGAN) 25 mg in NaCl 0.9% (NS) 50 mL piggyback NaCl 0.9% (NS) bolus infusion 500 mL proMETHazine 25 mg tablet ED COURSE ED Course as of Aug 17 2324 Sat Aug 17, [id number] Discussed presentation, work-up and findings with Dr Shannon, who recommended clinic follow-up. Pthas an ostomy care clinic coming week [[place]] ED Course User Index [[place]] Shayla Munoz MD MDM: Coding Scoring Tools: No data recorded Diagnosis/Impression: ICD-10-CM ICD-9-CM 1. Generalized abdominal pain R10.84 789.07 2. Breast nodule N63.0 793.89 3. Skin irritation R23.8 709.9 4. Mild dehydration E86.0 276.51 5. Transaminitis R74.01 790.4 6. Nausea and vomiting in adult R11.2 787.01 Disposition/Condition: ED Disposition ED Disposition Condition Comment Disch - Home Stable Discharge Medications: Patient's Medications START taking these medications PROMETHAZINE 25 MG TABLET Take 1 tablet by mouth every 6 (six) hours as needed for Nausea and Vomiting (N/V). CONTINUE taking these medications which have NOT CHANGED ACETAMINOPHEN 325 MG TABLET Take 2 tablets by mouth every 6 (six) hours. ALPRAZOLAM (XANAX) 2 MG TABLET Take 2 mg by mouth 2 (two) times daily. DEXTROAMPHETAMINE-AMPHETAMINE (ADDERALL) 30 MG TABLET Take 30 mg by mouth 2 (two) times daily. IBUPROFEN 600 MG TABLET Take 1 tablet by mouth every 6 (six) hours. LOPERAMIDE 2 MG CAPSULE Take 1 capsule by mouth daily. METHOCARBAMOL 500 MG TABLET Take 1 tablet by mouth 4 (four) times daily. METOPROLOL TARTRATE 25 MG TABLET Take 1 [...] these medications No medications on file Follow-up: Electronically signed by: Shayla Munoz MD 08/17/2020 7:51 PM documented in this encounter Miscellaneous Notes ED Nurse Note - Khurram Whiting RN - 08/18/2020 12:53 AM CDTPt given printed and verbal discharge instructions regarding visit findings Discussed promethazine side effects and to avoid driving/operating machinery/or engaging in activities requiring alertness while taking. Pt encouraged to follow up with PCP; and to keep her appointment on Wednesday08/20/2020 in [place] Advised to seek medical attention for new/prolonged/worsening of symptoms. No adverse reaction to meds given in ER noted upon discharge. PIV d'cd, dressing to site, catheter in tact. Pt verbalized understanding of instructions, awake alert oriented, resp reg unlabored, skin w/d, color appropriate for race, moves all ext well, pt leaving in wheelchair via myself, in no apparent distress, documented in this encounter Plan of Treatment Date Type Specialty Care Team Description 08/20/2020 Nurse Visit Surgery Deepika Anthony RN [address] [place] [id number] 09/06/2020 Office Visit Colorectal Surgery Precious Chun MD [address] [facility] [address] [place], [place] [id number] Health Maintenance Due Date Last Done Comments [...] encounter Procedures Procedure Name Priority Date/Time Associated Diagnosis Comme nts CT ABDOMEN PELVIS W STAT 08/17/2020 9:24 PM Generalized R esults for this CONTRAST CDT abdominal pain procedure are in the results section. COVID-19 (ID NOW STAT 08/17/2020 8:23 PM Generalized Resu lts for this RAPID TESTING) CDT abdominal pain procedure a re in the results section. CBC WITH DIFF STAT 08/17/2020 8:23 PM Generalized Results for this CDT abdominal pain procedure are in the results section. COMP. METABOLIC STAT 08/17/2020 8:23 PM Generalized Resul ts for this PANEL (48706) CDT abdominal pain procedure ar e in the results section. LIPASE STAT 08/17/2020 8:23 PM Generalized Results for this CDT abdominal pain procedure are in the results section. NOTICE OF PRIVACY Routine 08/17/2020 7:35 PM PRACTICES CDT CONSENT/REFUSAL FOR Routine 08/17/2020 7:31 PM DIAGNOSIS AND CDT TREATMENT CONSENT/REFUSAL FOR Routine 08/17/2020 7:31 PM DIAGNOSIS AND CDT TREATMENT CONSENT/REFUSAL FOR Routine 08/17/2020 7:31 PM DIAGNOSIS AND CDT TREATMENT documented in this encounter Results CT ABDOMEN PELVIS W CONTRAST (08/17/2020 9:24 PM CDT) Specimen Addenda Addendum by Rhett Harden MD on 11:01 PM * * * * * * * * ADDENDUM: * * * * * * * * The finding regarding left breast nodule was discussed with Dr Munoz at 08/17/2020 10:53 PM Preliminary Report Dictated by Resident: Rhett Venegas MD., have review ed this study and agree with the above report. Impressions Performed At PACS/VR/DOSE Status post ileocecectomy with right low er quadrant diverting ileostomy. Rectosigmoid colon wall thickening with mild mural hyperenhancement may reflect active inflammatory bowel disease. Mild inflam matory changes can be seen elsewhere in the colon (to lesser e xtent). Correlate clinically. Ventral hernia containing fat and fluid faint peripheral enhancement. Sterility is unclear. However, there is no significant inflammatory change in this region. Slightly thickened bladder wall for the degree of distention. Correlate with urinalysis. Left breast 1.1 cm nodule. Correlate wit h ultrasound and/or mammography Preliminary Report Dictated by Resident: Rhett Venegas MD., have review ed this study and agree with the above report. Narrative Performed At EXAM: CT ABDOMEN PELVIS W CONTRAST PACS/VR/DOSE HISTORY: Abd pain, acute, generalized s/ p iLEOSTOMY WITH aBDOMINAL PAIN, nAUSEA/vOMITING 43-year-old female with Crohn's disease. COMPARISON: Abdominal CT-07/23/2020 DOSE: 334 mGy*cm TECHNIQUE AND FINDINGS: Contiguous axial imaging from the level of the lung bases through the proximal thighs was pe rformed after the uncomplicated administration intravenous contrast. Coronal and sagit ramón reconstructions were obtained. Auto mA and/or iterative reconstructi on were used to reduce radiation dose. FINDINGS: LOWER THORAX: Left lower lobe subsegment al atelectasis. 1.1 cm right breast nodule (2:29 and 4:4 8). LIVER: No focal hepatic lesions. Normal contour. GALLBLADDER AND BILIARY TREE: No biliary ductal dilation. No radiopaque cholelithiasis. No gallbladder wall thic kening. PANCREAS: No ductal dilation or masses. Evidence of pancreatic divisum. SPLEEN: No splenomegaly. ADRENAL GLANDS: No adrenal nodules. KIDNEYS: No hydronephrosis, stones, or m asses. Kidneys enhance symmetrically. PERITONEUM AND RETROPERITONEUM: No free air or fluid. Left paramedian ventral hernia containing fat fluid leve l with peripheral enhancement (2:62). No significant surrounding fluid or change. Left upper quadrant mesenteric stranding and prominent vessels suggesting hyperemia. LYMPH NODES: No lymphadenopathy. Multipl e subcentimeter lymph nodes scattered throughout the mesentery are t hought to be reactive. VESSELS: Patent abdominal vasculature. GI TRACT: Postsurgical changes of right lower quadrant colectomy with right lower quadrant and diverting ileostomy ( portions of the residual right colon extending to the stoma). Rectosigm oid wall thickening is noted. No evidence of small bowel obstruction. Mucosal hyperenhancement within the rectum and rectosi gmoid with mild mural thickening (probably exaggerated by deco mpressed state). Small sliding-type hiatal hernia with mi ld distal esophageal thickening. PELVIS/BLADDER: Bladder wall slightly th ickened, for the degree of distention. Status post hysterectomy. Va ronald appears mildly thickened. BONES AND SOFT TISSUES: No acute osseous abnormality. Midline surgical scar is seen. Mild multilevel wedging at thor acolumbar junction anterior superior endplates is probably degenerat pasha in nature. Prominent degenerative changes at bilateral hips. Procedure Note [facility], Radiant Results Inft User - 2019 10:51 PM CDT EXAM: CT ABDOMEN PELVIS W CONTRAST HISTORY: Abd pain, acute, generalized s/ p iLEOSTOMY WITH aBDOMINAL PAIN, nAUSEA/vOMITING 43-year-old female with Crohn's disease. COMPARISON: Abdominal CT-07/23/2020 DOSE: 334 mGy*cm TECHNIQUE AND FINDINGS: Contiguous axial imaging from the level of the lung bases through the proximal thighs was pe rformed after the uncomplicated administration intravenous contrast. Cor onal and sagittal reconstructions were obtained. Auto mA and/or iterative reconstruction were used to reduce radiation dose. FINDINGS: LOWER THORAX: Left lower lobe subsegment al atelectasis. 1.1 cm right breast nodule (2:29 and 4:4 8). LIVER: No focal hepatic lesions. Normal contour. GALLBLADDER AND BILIARY TREE: No biliary ductal dilation. No radiopaque cholelithiasis. No gallbladder wall thic kening. PANCREAS: No ductal dilation or masses. Evidence of pancreatic divisum. SPLEEN: No splenomegaly. ADRENAL GLANDS: No adrenal nodules. KIDNEYS: No hydronephrosis, stones, or m asses. Kidneys enhance symmetrically. PERITONEUM AND RETROPERITONEUM: No free air or fluid. Left paramedian ventral hernia containing fat fluid leve l with peripheral enhancement (2:62). No significant surrounding fluid or change. Left upper quadrant mesenteric stranding and prominent vessels suggesting hyperemia. LYMPH NODES: No lymphadenopathy. Multipl e subcentimeter lymph nodes scattered throughout the mesentery are t hought to be reactive. VESSELS: Patent abdominal vasculature. GI TRACT: Postsurgical changes of right lower quadrant colectomy with right lower quadrant and diverting ileostomy ( portions of the residual right colon extending to the stoma). Rectosigm oid wall thickening is noted. No evidence of small bowel obstruction. Mucosal hyperenhancement within the rect um and rectosigmoid with mild mural thickening (probably exaggerated by deco mpressed state). Small sliding-type hiatal hernia with mi ld distal esophageal thickening. PELVIS/BLADDER: Bladder wall slightly th ickened, for the degree of distention. Status post hysterectomy. Va ronald appears mildly thickened. BONES AND SOFT TISSUES: No acute osseous abnormality. Midline surgical scar is seen. Mild multilevel wedging at thor acolumbar junction anterior superior endplates is probably degenerat pasha in nature. Prominent degenerative changes at bilateral hips. IMPRESSION Status post ileocecectomy with right low er quadrant diverting ileostomy. Rectosigmoid colon wall thickening with mild mural hyperenhancement may reflect active inflammatory bowel diseas e. Mild inflammatory changes can be seen elsewhere in the colon (to lesser e xtent). Correlate clinically. Ventral hernia containing fat and fluid faint peripheral enhancement. Sterility is unclear. However, there is no significant inflammatory change in this region. Slightly thickened bladder wall for the degree of distention. Correlate with urinalysis. Left breast 1.1 cm nodule. Correlate wit h ultrasound and/or mammography Preliminary Report Dictated by Resident: Rhett Venegas MD., have reviewe d this study and agree with the above report. Performing Organization Address [facility] [place] PACS/VR/DOSE COVID-19 (ID NOW RAPID TESTING) (08/17/2020 8:23 PM CDT) Pathologist [facility] SARS-CoV-2 Rapid ID Not Detected Not Detected [facility] Specimen Swab - NASOPHARYNGEAL SWAB Narrative Performed At OR NOW COVID-19 Assay is an isothermal nucleic [facility] acid amplification test intended for the qualitative detection of nucleic acid from SARS-CoV-2 viral RNA in nasopharyngeal (BATTERY CHARGER) specimens. It is used under Emergency Use [...] testing if clinically indicated. Performing Organization Address [facility] Phone Number [facility] CLIA: [id number] [place] [address] LIPASE (08/17/2020 8:23 PM CDT) Pathologist [facility] LIPASE 172 0 - 220 U/L [facility] Specimen Blood - VENOUS Performing Organization Address [facility] [place] Phone Number [facility] CLIA: [id number] [place] [address] COMP. METABOLIC PANEL ([id number]) (08/17/2020 8:23 PM CDT) NA 135 135 - 145 [facility] mmol/L [facility] K 4.1 3.5 - 5.0 [facility] mmol/L [facility] CL 96 (L) 98 - 108 mmol/L [facility] CO2 TOTAL 30 23 - 31 mmol/L [facility] AGAP 9 2 - 16 [facility] BUN 17 7 - 23 mg/dL [facility] [place]SE 149 (H) 70 - 110 mg/dL [facility] CREATININE 1.21 (H) 0.50 - 1.04 [facility] mg/dL [facility] TOTAL BILI 0.7 0.1 - 1.1 mg/dL [facility] CALCIUM 10.5 8.6 - 10.6 [facility] mg/dL [facility] T PROTEIN 8.6 (H) 6.3 - 8.2 g/dL [facility] ALBUMIN 4.4 3.5 - 5.0 g/dL [facility] ALK PHOS 170 (H) 34 - 122 U/L [facility] ALTv 145 (H) 5 - 35 U/L [facility] AST(SGOT) 70 (H) 13 - 40 U/L [facility] eGFR Calculation 48.1 mL/min/1.73m2 [facility] Somali) eGFR Calculation 58.3 mL/min/1.73m2 [facility] () [facility] Specimen Blood - VENOUS Narrative Performed At Association of Glomerular Filtration Rate (GFR) [facility] and Staging of Kidney Disease* [...] tests). Performing Organization Address City/State/Zipcode Phone Number [facility] CLIA: [id number] [place] [address] CBC WITH DIFF (08/17/2020 8:23 PM CDT) Pathologist Sig nature WBC 4.54 4.30 - 11.10 [facility] 10*3/L [facility] RBC 4.12 3.93 - 5.25 [facility] 10*6/L [facility] HGB 12.8 11.6 - 15.0 [facility] g/dL [facility] HCT 38.9 35.7 - 45.2 % [facility] MCV 94.4 80.6 - 95.5 fL [facility] MCH 31.1 25.9 - 32.8 pg [facility] MCHC 32.9 31.6 - 35.1 [facility] g/dL [facility] RDW-SD 41.1 39.0 - 49.9 fL [facility] RDW-CV 11.8 (L) 12.0 - 15.5 % [facility] PLT 353 166 - 358 [facility] 10*3/L [facility] MPV 10.4 9.5 - 12.9 fL [facility] NRBC/100 WBC 0.0 0.0 - 10.0 /100 [facility] WBCs [facility] NRBC x10^3 <0.01 10*3/L [facility] GRAN MAT (NEUT) % 50.9 % [facility] IMM GRAN % 0.40 % [facility] LYMPH % 35.9 % [facility] MONO % 9.9 % [facility] EOS % 2.2 % [facility] BASO % 0.7 % [facility] GRAN MAT x10^3(ANC) 2.31 1.88 - 7.09 [facility] 10*3/uL [facility] IMM GRAN x10^3 <0.03 0.00 - 0.06 [facility] 10*3/uL [facility] LYMPH x10^3 1.63 1.32 - 3.29 [facility] 103/uL [facility] MONO x10^3 0.45 0.33 - 0.92 [facility] 10*3/uL [facility] EOS x10^3 0.10 0.03 - 0.39 [facility] 10*3/uL [facility] BASO x10^3 0.03 0.01 - 0.[address]/[facility] LABORATORY Specimen Blood - VENOUS Performing Organization Address City/State/Zipcode Phone Number [facility] CLIA: [id number] [place], [place] [id number] LABORATORY [address] documented in this encounter Visit Diagnoses Diagnosis Generalized abdominal pain - Primary Abdominal pain, generalized Breast nodule Other (abnormal) findings on radiologica l examination of breast Skin irritation Unspecified disorder of skin and subcuta neous tissue Mild dehydration Dehydration Transaminitis Nonspecific elevation of levels of trans aminase or lactic acid dehydrogenase (LDH) Nausea and vomiting in adult Nausea with vomiting documented in this encounter Administered Medications Medication Order MAR Action Action Date Dose Rate Site NaCl 0.9% (NS) IV infusion New Bag 08/17/2020 8:23 PM CDT 1,000 m L 999 mL/hr 1,000 mL at 999 mL/hr, Intravenous, CONTINUOUS, Starting 08/17/20 at 2115, Until Discontinued, Routine Medication Order MAR Action Action Date Dose Rate Site diphenhydrAMINE (BENADRYL) Given 08/17/2020 8:24 PM CDT 25 mg injection 25 mg 25 mg, Slow IV Push, ONCE, 1 dose, 08/17/20 at 2115, STAT iohexol (OMNIPAQUE 350 BULK-150 mL) Given 08/17/2020 9:19 PM CD T 119 mL injection 119 mL 119 mL, Intravenous, ONCE, 1 dose, 08/17/20 at 2130, Routine morpHINE injection 4 mg Given 08/17/2020 8:24 PM CDT 4 mg 4 mg, Slow IV Push, ONCE, 1 dose, 08/17/20 at 2115, STAT morpHINE injection 4 mg Given 08/17/2020 10:25 PM CDT 4 mg 4 mg, Slow IV Push, ONCE, 1 dose, 08/17/20 at 2315, STAT NaCl 0.9% (NS) bolus infusion 500 New Bag 08/17/2020 10:25 PM CDT 500 mL 999 mL/hr mL at 999 mL/hr, 500 mL, IV Infusion, ONCE, 1 dose, 08/17/20 at 2315, STAT proMETHazine (PHENERGAN) 25 mg in NaCl 0.9% Given 08/17/2020 8:24 PM CDT 25 mg (NS) 50 mL piggyback 25 mg, IV Piggyback, ONCE, 1 dose, 08/17/20 at 2115, 50 mL proMETHazine (PHENERGAN) 25 mg in NaCl 0.9% Given 08/17/2020 11:15 PM CDT 25 mg (NS) 50 mL piggyback 25 mg, IV Piggyback, ONCE, 1 dose, 08/17/20 at 2315, 50 mL documented in this encounter Additional Health Concerns Infection Onset Date Last Indicated Resolved Time COVID-19 Rule Out 08/17/2020 08/17/2020 08/17/2020 8: 55 PM CDT documented as of this encounter Insurance Payer Benefit Plan / Subscriber ID Effective Phone Address T ype Group Dates MEDICAID MEDICAID SSI PENDING 2020-Pres [address] [place] [address] documented as of this encounter
--- OUTSIDE RECORDS SUMMARY | 2020-10-24 06:53 | XMS REPORT | Summary of Care ---
:1975 Author Organization [facility] Address [address] [place] [address] Care Team Providers Name Role Phone Pcp, Does Not Have A Primary Care Provider Reason for Visit Reason Comments Follow-up (Routine) Status Reason Specialty Diagnoses / Referred By Referred To Procedures Contact Contact Authorized URO-UROLOGY / Diagnoses Ileostomy care Precious Chun MD Surgery Urology Procedures CONSULT OSTOMY CARE [address] [employer] [address] [address] [address] Phone: [place], [place] [phone] [address] Fax: Fax: Encounter Details Date Type Department Care Team Description 08/20/2020 Nurse Visit [facility] General Person, Que clark MD [address] [place] [address] [place] [address] Ostomy nurse consultation (Primary Dx); [facility] Deepika Anthony RN [address] [place] [id number] Irritant contact dermatitis due to ileos deb [facility] [address] [place] [address] [address], [address] [place] [address] Allergies Active Allergy Reactions Severity Noted Date [...] as of this encounter (statuses as of 08/20/2020) Medications Medication Sig Dispensed Refills Start Date [...] as of this encounter (statuses as of 08/20/2020) Active Problems Problem Noted Date SBO (small bowel obstruction) 07/24/2020 Crohn's disease of colon with complication 07/23/2020 Overview: Added automatically from request for [address] [id number] Sinus tachycardia 08/23/2019 Pneumonia 08/18/2019 Drug-seeking behavior 03/10/2019 Multifocal pneumonia 01/24/2018 Dehydration 01/05/2018 IBS (irritable bowel syndrome) 10/02/2011 Depression 10/02/2011 documented as of this encounter (statuses as of 08/20/2020) Social History Tobacco Use Types Packs/Day Years [...] Sign Reading Time Taken Comments Blood Pressure 117/86 08/20/2020 11:22 AM CDT Pulse 129 08/20/2020 11:22 AM CDT Temperature 36.9 C (98.4 F) 08/20/2020 11:21 AM CDT Respiratory Rate 16 08/20/2020 11:21 AM CDT Oxygen Saturation - - Inhaled Oxygen Concentration - - Weight 57.6 kg (127 lb) 08/20/2020 11:21 AM CDT Height 170.2 cm (5' 7") 08/20/2020 11:21 AM CDT Body Mass Index 19.89 08/20/2020 11:21 AM CDT documented in this encounter Progress Notes Deepika Anthony RN - 08/20/2020 11:00 AM CDTWOCN Note Consult for Peristomal skin issues. Per EPIC, patient was in ED over the weekend for skin breakdown.Pt reports her left her this weekend stating he couldn't deal with her health issues. She iscurrently staying with her mother in [place]. She has not reached out the to product assistance programs as yet and the outpatient social services technician, [facility] program has not contacted her. Referral is placed in [facility]. She states that Dr Chun sent prescriptions to [facility] but she is currently unfunded and do not see an outpatient social work noting coverage for supplies. ASSESSMENT: RLQ Ileostomy, 29 mm, healing well however stoma retracts with skin folds at 3&9 o'clock. She has peristomal skin erosions extending out ~1 inch. Pt is still cutting the opening at 38mm which is leaving skin exposed. Pt has liquid stool in pouch which has strong pungent odor. Pt reports she is continuing to have nausea and doesn't eat well. States breads make her nauseous. Reviewed dietary, fluid and electrolyte replacement. Encouraged her to try starches that she can tolerate, she reports she tolerate grits, oatmeal, rice and crackers well. She has stopped taking her lomotil due to nausea per her report. Encourage her to try small frequent meals and include starches she tolerates. She is supplementing with ensure. Reviewed skin care, stoma powder applications and sealing with skin prep. She was reversing the order of the skin prep and powder. She was provided with supply samples today. Encouraged her to call the product assistance to begin application process. Will follow up with the [facility] referral. Return in 2 weeks for follow up. Deepika Anthony RN 08/20/2020 12:19 PM Zulay Santo RN - 08/20/2020 11:00 AM Mima Uziel Farah is a 44 year old female comes to clinic independent in ambulation for followup. Pt comes alone . Pt in NAD w/ pain reported 04/24. Pt preferred language is Cypriot. Pt. denies fall in last 12 months. Allergies and medications reviewed and updated. documented in this encounter Plan of Treatment Date Type Specialty Care Team Description 09/03/2020 Nurse Visit Surgery Deepika Anthony RN [address] [place] [address], [place] [address] 09/06/2020 Office Visit Colorectal Surgery Precious Chun MD [address] [facility] [address] [place] [address] [phone] Health Maintenance Due Date Last Done Comments PNEUMOCOCCAL 0-64 YEARS COMBINED SERIES (1 1980 of 3 - PCV13) Depression Screening 1986 DTaP,Tdap,and Td Vaccines (1 - Tdap) 1993 PAP SMEAR 07/28/2014 07/28/2011 Breast Cancer Screening (MAMMOGRAM) 2014 INFLUENZA VACCINE (#1) 2020 COLON CANCER SCREENING ANNUAL FIT/FOBT 2024 01/05/2018 Colorectal Cancer Screening 2024 documented as of this encounter Results Not on filedocumented in this encounter Visit Diagnoses Diagnosis Ostomy nurse consultation - Primary Irritant contact dermatitis due to ileos deb Other complication of colostomy or enter ostomy documented in this encounter
--- OUTSIDE RECORDS SUMMARY | 2020-10-24 06:53 | XMS REPORT | Summary of Care ---
:1975 Author Organization [facility] Address [address] [place] [address] Care Team Providers Name Role Phone Pcp, Does Not Have A Primary Care Provider Encounter Details Date Type Department Care Team Description 08/09/[address] [facility] Doctor Unassigned, No [address] [facility] [place] [address] [address] [id number] Allergies Active Allergy Reactions Severity Noted Date [...] Added automatically from request for [address] [id number] Sinus tachycardia 08/23/2019 Pneumonia 08/18/2019 Drug-seeking behavior [...] Signs Not on filedocumented in this encounter Plan of Treatment Date Type Specialty Care Team Description 08/20/2020 Nurse Visit Surgery Deepika Anthony, RN [address] [place] [address] 09/06/2020 Office Visit Colorectal Surgery Precious Chun MD [address] [facility] [address] [place] [address] Health Maintenance Due Date Last [...] Name Priority Date/Time Associated Diagnosis Comme nts AUTHORIZATION TO RELEASE Routine 08/09/2020 12:01 AM PHI TO [facility] CDT documented in this encounter Results Not on filedocumented in this encounter Additional Health Concerns Infection Onset Date Last Indicated Resolved Time COVID-19 Rule Out 08/17/2020 08/17/2020 08/17/2020 8: 55 PM CDT documented as of this encounter
--- OUTSIDE RECORDS SUMMARY | 2020-10-24 06:54 | XMS REPORT | Summary of Care ---
:1975 Author Organization [facility] Address [address] [place] [address] Care Team Providers Name Role Phone Pcp, Does Not Have A Primary Care Provider Reason for Referral MRI/CAT Scan (STAT) Status Reason Specialty Diagnoses / Referred By Referred To Procedures Contact Contact New Request Diagnostic Diagnoses Generalized abdominal pain Matthias Silvestre, Radiology Procedures CT ABDOMEN PELVIS W CONTRAST PEDIATRIC LICENSED PRACTICAL NURSE [address] [place] [address] Reason for Visit Reason Comments Abdominal Pain Auth/Cert Status Reason Specialty Diagnoses / Referred By Referred To Procedures Contact Contact Emergency Medicine [facility] Em ergency Dept [address] [place] [address] Fax: Encounter Details Date Type Department Care Team Description 08/23/2020 Emergency ADC-Emergency Matthias Silvestre, Drug-seekin g behavior (Primary Dx); Department PEDIATRIC LICENSED PRACTICAL NURSE Generalized abdominal pain; [address] [place] [address] Dr pak [address] [facility] Stoma dermatitis; [address] [place] [phone] [facility] [phone] Allergies Active Allergy Reactions Severity Noted Date [...] as of this encounter (statuses as of 08/23/2020) Medications Medication Sig Dispensed Refills Start Date [...] as of this encounter (statuses as of 08/23/2020) Active Problems Problem Noted Date SBO (small bowel obstruction) 07/24/2020 Crohn's disease of colon with complication 07/23/2020 Overview: Added automatically from request for kamilah lane [id number] Sinus tachycardia 08/23/2019 Pneumonia 08/18/2019 Drug-seeking behavior 03/10/2019 Multifocal pneumonia 01/24/2018 Dehydration 01/05/2018 IBS (irritable bowel syndrome) 10/02/2011 Depression 10/02/2011 documented as of this encounter (statuses as of 08/23/2020) Social History Tobacco Use Types Packs/Day Years [...] been in contact with No / Unsure 08/23/2020 5:13 PM CDT someone who was confirmed or suspected to have Coronavirus / COVID-19? documented as of this encounter Last Filed Vital Signs Vital Sign Reading Time Taken Comments Blood Pressure 124/90 08/23/2020 7:00 PM CDT Pulse 89 08/23/2020 7:00 PM CDT Temperature 36.6 C (97.9 F) 08/23/2020 5:27 PM CDT Respiratory Rate 20 08/23/2020 7:00 PM CDT Oxygen Saturation 100% 08/23/2020 7:00 PM CDT Inhaled Oxygen Concentration - - Weight 59 kg (130 lb) 08/23/2020 5:27 PM CDT Height - - Body Mass Index 20.36 08/20/2020 11:21 AM CDT documented in this encounter Discharge Instructions Matthias Charles, GISELLA - 08/23/2020 DIAGNOSIS 1. Stoma dermatitis 2. Abdominal pain NO LIFE-THREATENING FINDINGS ON TODAY'S EXAM. PROCEDURES IN THE ER TODAY: Orders Placed This Encounter Procedures CT ABDOMEN PELVIS W CONTRAST CBC WITH DIFF COMP. METABOLIC PANEL (39819) LIPASE MEDICATIONS ADMINISTERED IN THE ER TODAY: Medications acetaminophen (TYLENOL) tablet 650 mg (650 mg Oral Refused 08/23/202144) NaCl 0.9% (NS) bolus infusion 1,000 mL (1,000 mL IV Infusion New Bag 08/23/201843) morpHINE injection 4 mg (4 mg Slow IV Push Given 08/23/201842) diphenhydrAMINE (BENADRYL) injection 12.5 mg (12.5 mg Slow IV Push Given 08/23/201843) iohexol (OMNIPAQUE 350 BULK-75 mL) injection 60 mL (60 mL Intravenous Given 08/23/202044) YOUR PRESCRIPTIONS AND [id number] MEDICATION RECOMMENDATIONS: New Prescriptions No medications on file SPECIAL CARE INSTRUCTIONS: Please follow up with surgery team and/or wound care team to help with excoriated skin. Use techniques as instructed by wound care on 08/20/20 to help with skin around stoma. Please follow up with surgery team for further evaluation of pain management. FOLLOW-UP RECOMMENDATIONS: RECOMMEND FOLLOW-UP WITH A PRIMARY CARE PROVIDER OR SPECIALIST IN 2-5 DAYS, ESPECIALLY IF NO IMPROVEMENT IN SYMPTOMS. TO FOLLOW-UP WITHIN THE [facility], TRY THESE OPTIONS (CLINIC APPOINTMENTS AVAILABLE ON [id number] BASIS): 1. SCHEDULE AN APPOINTMENT ONLINE AT [email or web address] 2. OR CALL THE [facility] AT OR 3. OR CALL YOUR [facility] PHYSICIAN'S OFFICE DIRECTLY IF YOU ARE ALREADY AN ESTABLISHED [facility] PATIENT. OR, YOU MAY FOLLOW-UP WITH A PROVIDER OF YOUR CHOICE, SUCH : 1. A PHYSICIAN OF YOUR CHOICE 2. [facility], . LOCATIONS IN [facility] 3. [facility], [address] [place] [address]; [phone] RETURN TO ER FOR WORSENING OF SYMPTOMS. documented in this encounter ED Notes Felicia Evans RN - 08/23/2020 5:25 PM CDTPt reports abdominal pain x2 days with N/V/D. Reports ostomy site placed approx 1 month ago, arrivedwithout ostomy bag in place stating the area around it is red and raw. Reports that she was informedto come to ED by Dr. Bliss a surgeon in [place]. documented in this encounter Miscellaneous Notes ED Nurse Note - Flori Saeed RN - 08/23/2020 10:17 PM CDTPt given printed and verbal discharge instructions regarding Stoma dermatitis, generalized abdominalpain, encouraged hydration, Discussed ibuprofen and to take with food to avoid GI distress. Pt verbalized understanding of instructions, pt awake alert oriented, resp reg unlabored, skin w/d, color appropriate for race, moves all ext well,pt encouraged to follow up with PCP, ostomy nurse, colorectal surgeon Advised to seek medical attention for new/prolonged/worsening of symptoms, Symptoms any signs of infection, fever over 100.4 No adverse reaction to meds given in ER noted upon discharge PIV d'cd, dressing to site, catheter in tact. Awake, alert oriented, resp reg unlabored, skin w/d, pt leaving amb with steady gait, in no apparent distress, D Nurse Note - Ena Simmons RN - 08/23/2020 9:47 PM CDTLab called for recollect. Pt has been discharged, provider is aware. D Nurse Note - Flori Saeed RN - 08/23/2020 9:45 PM CDTPt is yelling and cursing stating that she is nauseated and cant take the Tylenol and that her stomach hurts and that, "that doctor can take that Tylenol and shove it up her ass." She then called the [facility] and was expressing her complaints. D Nurse Note - Ena Simmons RN - 08/23/2020 9:03 PM CDTPt access center lead called reporting inappropriate call from patient cursing. I assured them the providers were aware of the patient's requests, however the drugs of her choice were not deamed appropriate by the provider. Pt told provider "take that Tylenol and shove it up your ass." D Nurse Note - Ena Simmons RN - 08/23/2020 8:45 PM CDTCall received from [facility] that patient has concerns. Provider and Dr. Munoz aware, chart reviewed, orders received. D Nurse Note - Roxana Vasquez RN - 08/23/2020 8:15 PM CDTPatient yelling saying she wanted to leave, refusing CT, went to speak to patient; she agreed to getthe ordered CT. D Nurse Note - Roxana Vasquez RN - 08/23/2020 7:55 PM CDTWhile starting ultrasound guided IV, provider came into the room. Patient immediately started yelling and swinging her arms around demanding phenergan. Provider explained to her the need for the labs and radiology scan to be completed . Patient continued yelling and would not allow provider to speak. D Nurse Note - Ena Simmons RN - 08/23/2020 7:23 PM CDTCall light answered, found patient with IV infiltration to LUE. IVF disconnected, warm compress applied. Pt states that she needs phenergan because its the only thing that works for her. Provider aware of request. D Nurse Note - Flori Saeed RN - 08/23/2020 6:50 PM CDTRemoved patients own dressing they had applied. Cleaned ostomy site with medicated wipes that contain barrier coach cleaner. Applied barrier cream and powder around ostomy and to skin breakdown. Applied new c olostomy dressing. D Nurse Note - Flori Saeed RN - 08/23/2020 6:44 PM CDT Patient is upset that the provider did not order her phenergan. She stated that phenergan is the only thing that helps her with nausea. Informed the patient that the provider did not order that medication for her but I will go ask her for the medication. Spoke to the provider and she stated that she would look into it. documented in this encounter Plan of Treatment Date Type Specialty Care Team Description 09/03/2020 Nurse Visit Surgery Deepika Anthony RN [address] [place] [address] 09/06/2020 Office Visit Colorectal Surgery Precious Chun MD [address] [facility] [address] [place] [address] Name Type Priority Associated Diagnoses Date/Ti me CT ABDOMEN PELVIS W IMAGING STAT Generalized abdominal 08/23/2020 8:30 PM CONTRAST pain CDT Health Maintenance Due Date Last Done Comments [...] Comme nts CT ABDOMEN PELVIS W STAT 08/23/2020 8:30 PM Generalized ab dominal CONTRAST CDT pain Procedure Note - [facility], Radia nt Results Inft User - 08/23/2020 8:55 PM CDT EXAM: CT ABDOMEN AND PELVIS WITH CONTRAST HISTORY: 44-year-old female presenting with abdominal pain and nausea. COMPARISON: CT of the abdome n dated 08/17/2020. TECHNIQUE AND FINDINGS: Cont iguous axial imaging from the level of the lung bases through the pubic symp hysis was performed after the uncomplicated administration of 120 cc of intravenous Omnipaque contrast. Coronal and sagittal reconstructions wer e obtained. Auto mA and/or iterative reconstruction were used to reduce radiation dose. FINDINGS: LOWER THORAX: The lungs base s are clear. No cardiomegaly. LIVER: No focal hepatic lesi ons. Normal contour. GALLBLADDER AND BILIARY TREE : No gallbladder wall thickening. No biliary dilatation. PANCREAS: No ductal dilation or masses. SPLEEN: No splenomegaly. ADRENAL GLANDS: No adrenal n odules. KIDNEYS: No hydronephrosis, stones, or masses. PELVIS/BLADDER: Changes of h ysterectomy. The urinary bladder is unremarkable. GI TRACT: Unchanged moderate sigmoid wall thickening. 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 VESSELS: Unremarkable. LYMPH NODES: No lymphadenopa thy. PERITONEUM AND RETROPERITONE UM: No free air or fluid. Interval decrease in the size of the previously n oted fluid and fat-containing epigastric ventral hernia. BONES AND SOFT TISSUES: No s uspicious lytic or sclerotic bony lesions. IMPRESSION Stable changes of ileocecost dinora with right lower quadrant ileostomy. Unchanged thickening of the rectosigmoid junction. Correlation with colonoscopy is recommended. Interval decrease in the siz e of the previously noted epigastric ventral hernia containing fluid and fat. Preliminary Report Dictated by Resident: Rivas Vieira CBC WITH DIFF STAT 08/23/2020 6:52 PM Generalized Results for this CDT abdominal pain procedure are in the results section. LIPASE STAT 08/23/2020 6:52 PM Generalized Results for this CDT abdominal pain procedure are in the results section. CONSENT/REFUSAL FOR Routine 08/23/2020 5:12 PM DIAGNOSIS AND CDT TREATMENT documented in this encounter Results LIPASE (08/23/2020 6:52 PM CDT) [facility] LIPASE 171 0 - 220 U/L [facility] Specimen Blood - VENOUS Performing Organization Address City/State/Zipcode Phone Number [facility] CLIA: [id number] [place], [place] [id number] LABORATORY [address] CBC WITH DIFF (08/23/2020 6:52 PM CDT) [facility] WBC 5.28 4.30 - 11.10 [facility] 10*3/L [facility] RBC 4.19 3.93 - 5.25 [facility] 10*6/L [facility] HGB 13.1 11.6 - 15.0 g/dL [facility] HCT 39.7 35.7 - 45.2 % [facility] MCV 94.7 80.6 - 95.5 fL [facility] MCH 31.3 25.9 - 32.8 pg [facility] MCHC 33.0 31.6 - 35.1 g/dL [facility] RDW-SD 42.3 39.0 - 49.9 fL [facility] RDW-CV 12.1 12.0 - 15.5 % [facility] PLT 344 166 - 358 [facility] 10*3/L [facility] MPV 11.0 9.5 - 12.9 fL [facility] NRBC/100 WBC 0.0 0.0 - 10.0 /100 [facility] WBCs [facility] NRBC x10^3 <0.01 10*3/L [facility] GRAN MAT (NEUT) % 44.5 % [facility] IMM GRAN % 0.20 % [facility] LYMPH % 43.0 % [facility] MONO % 9.5 % [facility] EOS % 1.7 % [facility] BASO % 1.1 % [facility] GRAN MAT x10^3(ANC) 2.35 1.88 - 7.09 [facility] 10*3/uL HOSPITAL LABORATORY IMM GRAN x10^3 <0.03 0.00 - 0.06 [facility] 10*3/uL HOSPITAL LABORATORY LYMPH x10^3 2.27 1.32 - 3.29 [facility] 10*3/uL HOSPITAL LABORATORY MONO x10^3 0.50 0.33 - 0.92 [facility] 10*3/uL HOSPITAL LABORATORY EOS x10^3 0.09 0.03 - 0.39 [facility] 10*3/uL HOSPITAL LABORATORY BASO x10^3 0.06 0.01 - 0.07 [facility] 10*3/uL HOSPITAL LABORATORY Specimen Blood - VENOUS Performing Organization Address City/State/Zipcode Phone Number [facility] CLIA: [id number] [place] [address] documented in this encounter Visit Diagnoses Diagnosis Drug-seeking behavior - Primary Other, mixed, or unspecified nondependen t drug abuse, unspecified Generalized abdominal pain Abdominal pain, generalized Stoma dermatitis Contact dermatitis and other eczema, due to unspecified cause Malingering Person feigning illness documented in this encounter Administered Medications Medication Order MAR Action Action Date Dose Rate Site diphenhydrAMINE (BENADRYL) Given 08/23/2020 6:44 PM CDT 12.5 mg injection 12.5 mg 12.5 mg, Slow IV Push, ONCE, 1 dose, 08/23/20 at 1900, STAT iohexol (OMNIPAQUE 350 BULK-75 mL) injection Given 07/2020 8:45 PM CDT 60 mL 60 mL 60 mL, Intravenous, ONCE, 1 dose, 08/23/20 at 2045, Routine morpHINE injection 4 mg Given 08/23/2020 6:43 PM CDT 4 mg 4 mg, Slow IV Push, ONCE, 1 dose, 08/23/20 at 1900, STAT NaCl 0.9% (NS) bolus infusion New Bag 08/23/2020 6:44 PM CDT 1,000 mL 999 mL/hr 1,000 mL at 999 mL/hr, 1,000 mL, IV Infusion, ONCE, 1 dose, 08/23/20 at 1845, STAT documented in this encounter Insurance Payer Benefit Plan / Subscriber ID Effective Phone Address T ype Group Dates MEDICAID MEDICAID SSI PENDING 2020-Pres [address] [place] [address] documented as of this encounter
--- OUTSIDE RECORDS SUMMARY | 2020-10-24 06:55 | XMS REPORT | Summary of Care ---
:1975 Author Organization [facility] Address [address] [place] [address] Care Team Providers Name Role Phone Pcp, Does Not Have A Primary Care Provider Reason for Visit Reason Comments Assessment Encounter Details Date Type Department Care Team Description 08/29/2020 Telephone [facility] Cancer Maren Villanueva A [facility]-General Surge ry AGNP [address] [facility], [address] [place] [address] [place] [phone] [place] [phone] Allergies Active Allergy Reactions Severity Noted [...] as of this encounter (statuses as of 08/29/2020) Medications Medication Sig Dispensed Refills Start Date [...] as of this encounter (statuses as of 08/29/2020) Active Problems Problem Noted Date SBO (small bowel obstruction) 07/24/2020 Crohn's disease of colon with complication 07/23/2020 Overview: Added automatically from request for kamilah domingo [id number] Sinus tachycardia 08/23/2019 Pneumonia 08/18/2019 Drug-seeking behavior 03/10/2019 Multifocal pneumonia 01/24/2018 Dehydration 01/05/2018 IBS (irritable bowel syndrome) 10/02/2011 Depression 10/02/2011 documented as of this encounter (statuses as of 08/29/2020) Social History Tobacco Use Types Packs/Day Years Used Date Current Every Day Smoker Smokeless Tobacco: Never Used Comments: 2-3 cigerette/day Alcohol Use Drinks/Week oz/Week Comments No Education Answer Date Recorded What is the highest level of school you have High school [employer] 07/24/2020 completed or the highest degree you [...] Telephone Encounter - Maren Villanueva AGNP - 08/29/2020 11:40 AM CDTPatient was called and patient states she continues to have pain on her left side. I explained to patient that her CT scan does not show why she is having pain. She also mentioned that she is due to goback to work at the end of the month and she does not believe she can work with her ostomy bag. She states the bag does not stay on. I informed her to keep her appointment with Mrs. Anthony and see if shecan offer some tips about the bag. I instructed patient to take ibuprofen and/or Tylenol for pain. She also stated that she continues to have liquid stools. I instructed patient to try and use some fiber to help with loose stools. She wants to discuss not going back to work with Dr. Chun. documented in this encounter Plan of Treatment Date Type Specialty Care Team Description 09/03/2020 Nurse Visit Surgery Deepika Anthony, RN [address] [place] [address] 09/06/2020 Office Visit Colorectal Surgery Precious Chun MD [address] [facility] [address] [place] [address] Health Maintenance Due Date Last [...] [address] [place] [address] documented as of this encounter
--- OUTSIDE RECORDS SUMMARY | 2020-10-24 06:55 | XMS REPORT | Summary of Care ---
:1975 Author Organization [facility] Address [address] [place] [address] Care Team Providers Name Role Phone Pcp, Does Not Have A Primary Care Provider Reason for Visit Reason Comments Assessment Pain/Pressure Encounter Details Date Type Department Care Team Description 08/28/2020 Telephone [facility] Cancer Precious Chun MD [facility]-Colorectal [address] [place] [address] (Pain /Pressure ) Surgery [address] [place] [address], 2[address] [place] [phone] Allergies Active Allergy Reactions Severity Noted Date [...] as of this encounter (statuses as of 08/28/2020) Medications Medication Sig Dispensed Refills Start Date [...] as of this encounter (statuses as of 08/28/2020) Active Problems Problem Noted Date SBO (small bowel obstruction) 07/24/2020 Crohn's disease of colon with complication 07/23/2020 Overview: Added automatically from request for kamilah lane [id number] Sinus tachycardia 08/23/2019 Pneumonia 08/18/2019 Drug-seeking behavior 03/10/2019 Multifocal pneumonia 01/24/2018 Dehydration 01/05/2018 IBS (irritable bowel syndrome) 10/02/2011 Depression 10/02/2011 documented as of this encounter (statuses as of 08/28/2020) Social History Tobacco Use Types Packs/Day Years Used Date Current Every Day Smoker Smokeless Tobacco: Never Used Comments: 2-3 cigerette/day Alcohol Use Drinks/Week oz/Week Comments No Education Answer Date Recorded What is the highest level of school you have High school [employer] 07/24/2020 completed or the highest degree you [...] this encounter Miscellaneous Notes Telephone Encounter - Kamille Ramírez - 08/28/2020 2:01 PM CDTPatient returned call. Please call patient back in the morning. elephone Encounter - Maren Villanueva AGNP - 08/28/2020 10:18 AM CDTPatient was called and message states patient is not taking calls at this time. Also called alternate number and mother states she will let her know we have tried to call her. Will address patient problem when she return call. She also has appointment with Mrs. Anthony on 09/03/20 to address problem withostomy. elephone Encounter - Ami Hunter RN - 08/28/2020 9:32 AM CDTCalled patient, at home number, told to call cell phone number. Called patient, cell #, identified by name and , c/o left side pain and stomach pain, claims whenshe takes imodium it causes pain. Claims changing bag x 6 times daily. Claims goes between constipation and diarrhea. Claims bag is bursting at time. Reports pain and pressure on left side through belly button. Pain level 9/10 in left side and back. Loose stool x this am (3 times so far). Offered patient an appointment with Rich GUERRA, per patient she does not know if she can come. Aware I would relay to Rich LEVELER. Aware I would relay to Adiel FOREMAN. Patient went to ED on 08/23/2020 - see visit report and CT imaging. Ami M Dale, RN Telephone Encounter - Darrell Kamille M - 08/28/2020 8:29 AM CDTPatient called c/o pain around the stoma and she is having a hard time keeping the ostomy bag on. Ptwould like to speak to a nurse. Please advise. documented in this encounter Plan of Treatment Date Type Specialty Care Team Description 09/03/2020 Nurse Visit Surgery Deepika Anthony RN [address] [place] [address] 09/06/2020 Office Visit Colorectal Surgery Precious Chun MD [address] [facility] [address] [place] [address] Health Maintenance Due Date Last [...] [address] [place] [address] documented as of this encounter
--- OUTSIDE RECORDS SUMMARY | 2020-10-24 06:55 | XMS REPORT | Summary of Care ---
:1975 Author Organization [facility] Address [address] [place] [address] Care Team Providers Name Role Phone Pcp, Does Not Have A Primary Care Provider Reason for Visit Reason Comments Assessment Pain/Pressure Encounter Details Date Type Department Care Team Description 08/28/2020 Telephone [facility] Cancer Precious Chun MD [facility]-Colorectal [address] [place] [address] (Pain /Pressure ) Surgery [address] [place] [address] [place] [address], 2nd [place] [phone] Allergies Active Allergy Reactions Severity Noted Date [...] Added automatically from request for kamilah lane [id number] Sinus tachycardia 08/23/2019 Pneumonia 08/18/2019 Drug-seeking behavior [...] Telephone Encounter - Maren Villanueva AGNP - 08/28/2020 10:18 AM CDTPatient was called and message states patient is not taking calls at this time. Also called alternate number and mother states she will let her know we have tried to call her. Will address patient problem when she return call. She also has appointment with Mrs. Anthony on 09/03/20 to address problem withostomy. Telephone Encounter - Ami Hunter RN - 08/28/2020 [...] come. Aware I would relay to Rich GUERRA. Aware I would relay to Adiel FOREMAN. Patient went to ED on 08/23/2020 - see visit report and CT imaging. Ami Hunter RN Telephone Encounter - Kamille Ramírez - 08/28/2020 8:29 AM CDTPatient called c/o pain around the stoma and she is having a hard time keeping the ostomy bag on. Ptwould like to speak to a nurse. Please advise. documented in this encounter Plan of Treatment Date Type Specialty Care Team Description 09/03/2020 Nurse Visit Surgery Deepika Anthony, RN [address] [place] [address] 09/06/2020 Office Visit Colorectal Surgery Precious Chun MD [address] [facility] [address] [place], [place] [address] Health Maintenance Due Date Last Done Comments [...] [address] [place] [address] documented as of this encounter
--- OUTSIDE RECORDS SUMMARY | 2020-10-24 06:56 | XMS REPORT | Summary of Care ---
:1975 Author Organization [facility] - [facility] Address [address] [place] [address] Care Team Providers Name Role Phone Pcp, Does Not Have A Primary Care Provider Reason for Visit Reason Comments Transition Of Care Encounter Details Date Type Department Care Team Description 09/12/2020 Transition of Care [facility] Edis Damon [facility]- [address] [place] [id number] Allergies Active Allergy Reactions Severity Noted Date [...] as of this encounter (statuses as of 09/12/2020) Medications Medication Sig Dispensed Refills Start Date [...] adult needed for Nausea and Vomiting (N/V). HYDROcodone-acetamino Take 1 tablet by 14 tablet 0 09/10/2020 09/17/2020 Active phen 5-325 mg mouth every 6 tabletIndications: (six) hours as acute pain needed for Pain (scale 4-6) for up to 7 days. Indications: acute pain documented as of this encounter (statuses as of 09/12/2020) Active Problems Problem Noted Date Abdominal pain 09/04/2020 Abdominal pain, generalized 09/03/2020 Overview: Added automatically from request for kamilah domingo [id number] SBO (small bowel obstruction) 07/24/2020 Crohn's disease of colon with complication 07/23/2020 Overview: Added automatically from request for kamilah domingo [id number] Sinus tachycardia 08/23/2019 Pneumonia 08/18/2019 Drug-seeking behavior 03/10/2019 Multifocal pneumonia 01/24/2018 Dehydration 01/05/2018 IBS (irritable bowel syndrome) 10/02/2011 Depression 10/02/2011 documented as of this encounter (statuses as of 09/12/2020) Social History Tobacco Use Types Packs/Day Years [...] been in contact with No / Unsure 09/03/2020 10:02 PM CDT someone who was confirmed or suspected to have Coronavirus / COVID-19? documented as of this encounter Last Filed Vital Signs Not on filedocumented in this encounter Miscellaneous Notes Telephone Encounter - Lynda Damon - 09/12/2020 10:31 AM CDT TRANSITIONAL CARE MANAGEMENT ASSESSMENT 09/12/2020 Jessica Farah [id number] Jessica Farah is a 44 year old Black or female was admitted on 09/03/20 to [facility] ([facility] [place] [address]. She was discharged on 09/10/20 with discharge disposition of HR- Routine Discharge. Admitting Physician: Sean Torres Discharge Diagnosis: Abdominal pain Called Tj Larios on cell number no pager on hand. Submitted via ubigrate email to Tj Larios : Post d/c call patient c/o abdomen swollen, has had to change ileostomy 07/2020/ colostomy bag morethan 8 times, skin around stoma breakdown due to leaking and distending of abdomen, patient. Has runout of bags due to changing frequently. Pt. Voices she has been less than 48 hrs. Post hospital and not doing well. Voiced that Colonoscopy complete no finding noted was told to patient. Although present with the distended abdomen and leakage, inquiring if the colonscopy could have been to soon? Prefers not to go back, due to finacial obligations. Work is giving her a hard time she needs FMLA. Referral to [facility] submitted for CM and SW needs. Pending call back from physician. No linked episodes TCM [id number] outreach documentation: Future Appointments: documented in this encounter Plan of Treatment Health Maintenance Due Date Last Done Comments PNEUMOCOCCAL 0-64 YEARS COMBINED SERIES (1 1980 of 3 - PCV13) Depression Screening 1986 DTaP,Tdap,and Td Vaccines (1 - Tdap) 1993 PAP SMEAR 07/28/2014 07/28/2011 Breast Cancer Screening (MAMMOGRAM) 2014 INFLUENZA VACCINE (#1) 2020 COLON CANCER SCREENING ANNUAL FIT/FOBT 2024 9, 01/05/2018 COLONOSCOPY 09/10/2030 09/10/2020 Colorectal Cancer Screening 09/10/2030 documented as of this encounter Results Not on filedocumented in this encounter
--- OUTSIDE RECORDS SUMMARY | 2020-10-24 06:56 | XMS REPORT | Summary of Care ---
:1975 Author Organization [facility] - [address] [address] Care Team Providers Name Role Phone Pcp, Does Not Have A Primary Care Provider Annmarie Ramirez retail selling floor leader Yen Fuentes TREE CARE FOREMAN Fur Mixer Operator Unavailable Reason for Visit Reason Comments DME [place] request for supplies Encounter Details Date Type Department Care Team Description 09/12/2020 Patient Outreach [facility] Deepika Ramirez RN DME ([place] request [address] for suppli es) [place], [place] [address] Allergies Active Allergy Reactions Severity Noted Date [...] Added automatically from request for kamilah domingo [id number] SBO (small bowel obstruction) 07/24/2020 Crohn's disease of colon with complication 07/23/2020 Overview: Added automatically from request for kamilah domingo [id number] Sinus tachycardia 08/23/2019 Pneumonia 08/18/2019 Drug-seeking behavior [...] Signs Not on filedocumented in this encounter Progress Notes Deepika Ramirez RN - 09/12/2020 2:14 PM CDTCHP CM submitted [place] request for ostomy supplies through [employer] for a total of 302.00. Ostomy barrier rings #10 (3 boxes) 60.00 Ileostomy one piece bags #20 (7boxes)230.00 No-sting skin barrier #75 (1 box) 11.10 BITA Thapa, RN, [facility] Outpatient Polygraph TechnicianPecan ShellerCone Health Women'S Hospital O: [phone] M: [phone] documented in this encounter Plan of Treatment Date Type Specialty Care Team Description 09/27/2020 Office Visit Colorectal Surgery Precious Chun MD [address] [facility] [address] [place] [address] Health Maintenance Due Date Last [...]
--- OUTSIDE RECORDS SUMMARY | 2020-10-24 06:56 | XMS REPORT | Summary of Care ---
:1975 Author Organization [facility] - [address] [address] Care Team Providers Name Role Phone Pcp, Does Not Have A Primary Care Provider Annmarie Ramirez avionics mechanic Reason for Visit Reason Comments Hospital F/U DME ostomy supplies for ileostom y Encounter Details Date Type Department Care Team Description 09/12/2020 Patient Outreach [facility] Deepika Ramirez RN Hospital F/U; [address] [facility] [address] [place], [place] [address] Allergies Active Allergy Reactions [...] Added automatically from request for kamilah domingo [id number] SBO (small bowel obstruction) 07/24/2020 Crohn's disease of colon with complication 07/23/2020 Overview: Added automatically from request for kamilah domingo [id number] Sinus tachycardia 08/23/2019 Pneumonia 08/18/2019 Drug-seeking behavior [...] Progress Notes Deepika Ramirez RN - 09/12/2020 10:57 AM CDTCHP REFERRAL: 18% Readmit Risk CM received referral on 09/12/20: CM spoke with Luz Farah [id number] Pt needs more one piece appliance bags and she needs the O ring wafers that can be torn apart and place into the ridges/folds of skin. She is a [facility] resident and CM explained she needs to decide if she is returning to [facility] or staying in [place] (Re: resources) She understood. CM explained [facility] does not enroll patient's who reside in [facility]; however, [facility] dept will assist the patient with her supplies. Shes tearful more than anything b/c of her emotional state/issues with her . [facility] dept will purchase enough bags to assist her while she gets her application completed over the phone with an ostomy supply company. ANNIE Lynn provided the pt with the resource list and [facility] CM explained to pt SHE HAS TO BE THE ONE TO CALL. She verbalized understanding. If the patient decides to remain in [place], CM will assist the patient with applying for the indigent program and will begin the process of enrollment into [facility]. CM will ask GREGORY Pleitez to call and assist patient prn. BITA Thapa, RN, [facility] Outpatient Archery Equipment Hay SorterAlmond Cutting Machine TenderSelect Specialty Hospital - [facility] O: [phone] M: [phone] documented in this encounter Plan of Treatment [...]
--- OUTSIDE RECORDS SUMMARY | 2020-10-24 06:56 | XMS REPORT | Summary of Care ---
:1975 Author Organization [facility] Address [address] [place] [id number] Care Team Providers Name Role Phone Pcp, Does Not Have A Primary Care Provider Reason for Referral MRI/CAT Scan (STAT) Status Reason Specialty Diagnoses / Referred By Referred To Procedures Contact Contact New Request Diagnostic Diagnoses Generalized abdominal pain Shayla Munoz Radiology Procedures CT ABDOMEN PELVIS W CONTRAST MD Martínez [address] [address] Reason for Visit Reason Comments Abdominal Pain Vomiting Auth/Cert Status Reason Specialty Diagnoses / Referred By Referred To Procedures Contact Contact Emergency Medicine [facility] Em ergency Dept [address] [place] [address] Fax: Encounter Details Date Type Department Care Team Description 09/01/2020 Emergency ADC-Emergency Shayla Munoz S, Chronic a bdominal pain (Primary Dx); Department Generalized abdominal pain [address] [place] [address] Dr [address] [place] [address] [id number] [place] [address] [phone] Allergies Active Allergy Reactions Severity Noted Date [...] as of this encounter (statuses as of 09/01/2020) Medications Medication Sig Dispensed Refills Start Date [...] as of this encounter (statuses as of 09/01/2020) Active Problems Problem Noted Date SBO (small bowel obstruction) 07/24/2020 Crohn's disease of colon with complication 07/23/2020 Overview: Added automatically from request for [address] [id number] Sinus tachycardia 08/23/2019 Pneumonia 08/18/2019 Drug-seeking behavior 03/10/2019 Multifocal pneumonia 01/24/2018 Dehydration 01/05/2018 IBS (irritable bowel syndrome) 10/02/2011 Depression 10/02/2011 documented as of this encounter (statuses as of 09/01/2020) Social History Tobacco Use Types Packs/Day Years [...] been in contact with No / Unsure 09/01/2020 1:43 AM CDT someone who was confirmed or suspected to have Coronavirus / COVID-19? documented as of this encounter Last Filed Vital Signs Vital Sign Reading Time Taken Comments Blood Pressure 129/86 09/01/2020 6:00 AM CDT Pulse 102 09/01/2020 6:00 AM CDT Temperature 37.7 C (99.8 F) 09/01/2020 5:00 AM CDT Respiratory Rate 18 09/01/2020 5:00 AM CDT Oxygen Saturation 100% 09/01/2020 5:00 AM CDT Inhaled Oxygen Concentration - - Weight 59 kg (130 lb) 09/01/2020 1:45 AM CDT Height - - Body Mass Index 20.36 08/20/2020 11:21 AM CDT documented in this encounter Discharge Instructions Shayla Escalona MD - 09/01/2020 DIAGNOSIS Diagnoses that have been ruled out: None Diagnoses that are still under consideration: None Final diagnoses: Generalized abdominal pain Chronic abdominal pain NO LIFE-THREATENING FINDINGS ON TODAY'S EXAM. PROCEDURES IN THE ER TODAY: Orders Placed This Encounter Procedures CT ABDOMEN PELVIS W CONTRAST CBC WITH DIFF COMP. METABOLIC PANEL (20234) LIPASE URINALYSIS ADC / [facility] - DRUG SCREEN TRIAGE POCT TEST MEDICATIONS ADMINISTERED IN THE ER TODAY AND DISCHARGE MEDICATIONS: Orders Placed This Encounter Medications morpHINE injection 4 mg proMETHazine (PHENERGAN) 25 mg in NaCl 0.9% (NS) 50 mL piggyback diphenhydrAMINE (BENADRYL) injection 25 mg NaCl 0.9% (NS) bolus infusion 1,000 mL iohexol (OMNIPAQUE 350 BULK-100 mL) injection 120 mL morpHINE injection 4 mg proMETHazine (PHENERGAN) 25 mg in NaCl 0.9% (NS) 50 mL piggyback FOLLOW-UP RECOMMENDATIONS: RECOMMEND FOLLOW-UP WITH A PRIMARY CARE PROVIDER OR SPECIALIST IN 2-5 DAYS, ESPECIALLY IF NO IMPROVEMENT IN SYMPTOMS. MAY FOLLOW-UP WITH A PROVIDER OF YOUR CHOICE, SUCH : 1. A PHYSICIAN OF YOUR CHOICE 2. [facility], . LOCATIONS IN [facility] 3. [facility], [address] [place] [address]; [phone] OR, IF YOU WISH TO FOLLOW-UP WITHIN THE [facility], MAY TRY THESE OPTIONS (CLINIC APPOINTMENTS AVAILABLE ON [id number] BASIS): 1. SCHEDULE AN APPOINTMENT ONLINE AT WWW.[facility] 2. OR CALL THE [facility] ACCESS CENTER AT OR 3. OR CALL YOUR [facility] PHYSICIAN'S OFFICE DIRECTLY IF YOU ARE ALREADY AN ESTABLISHED [facility] PATIENT. RETURN TO ER FOR WORSENING OF SYMPTOMS documented in this encounter ED Notes Mauricio Ford RN - 09/01/2020 1:44 AM CDTArrives to ED c/o abdominal pain and vomiting. She reports ileostomy is working for last 4 hours. Shayla Matthew MD - 09/01/2020 1:41 AM CDT [facility] Emergency Department Note Patient Name: Jessica Farah Date of : 1975 44 year old female Treatment Room: TX6/TX6 Primary Care Physician: PATIENT DOES NOT HAVE A PCP Patient Escorted by: Self [9] Mode of Arrival: Personal means [1] EMS Treatment Prior to ED Arrival: Travel and Exposure Screening: Symptoms Does patient have any of these symptoms?: (not recorded) Exposure Screening Has patient had contact with someone with a communicable disease in the last month?: (not recorded) Diseases exposed to:: (not recorded) Is Patient ?: (not recorded) Exposure Date: (not recorded) Chief Complaint: Chief Complaint Patient presents with Abdominal Pain Vomiting History of Present Illness: Jessica Farah is a 44 year old female who presented to the ED for evaluation of abdominal pain, N/V that began this AM upon awakening from sleep. Pt reports that she has vomited several timestoday. Denies any fever or chills. Pt has been evaluated several times in the past for similar type pain, but patient reports current pain is severe rated at 10/10. Pain is localized to per- ileostomy site. Denies any fever or chills. No known aggravating or relieving factors. Abdominal Pain Pain location: Generalized Pain quality: sharp Pain radiates to: Does not radiate Pain severity: Severe Onset quality: Sudden Duration: 3 hours Timing: Constant Progression: Unchanged Context: previous surgery Context: not alcohol use, not awakening from sleep, not diet changes, not eating, not laxative use, not medication withdrawal, not recent illness, not recent sexual activity, not recent travel, not retching, not sick contacts, not suspicious food intake and not trauma Relieved by: Nothing Worsened by: Nothing Ineffective treatments: None tried Associated symptoms: anorexia and nausea Associated symptoms: no chest pain, no chills, no constipation, no diarrhea, no fatigue, no fever, no hematemesis, no hematochezia, no hematuria, no melena, no shortness of breath, no sore throat, no vaginal bleeding and no vaginal discharge Risk factors: multiple surgeries Past Medical History/Immunizations: Past Medical History: Diagnosis Date Crohn disease Drug-seeking behavior 03/04/2019 IBS (irritable bowel syndrome) Tetanus received in [...] N/A 07/25/2020 Surgeon: Precious Chun MD; Location: [facility] OR Location ILEOSTOMY N/A 07/25/2020 Surgeon: Precious Chun MD; Location: [facility] OR Location TUBAL LIGATION 1996 Review of Systems: Review of Systems Constitutional: Positive for appetite change. Negative for chills, fatigue and fever. HENT: Negative for facial swelling and sore throat. Eyes: Negative. Respiratory: Negative. Negative for apnea, choking, chest tightness and shortness of breath. Breasts: Negative. Negative for discharge, mass and pain. Cardiovascular: Negative for chest pain and leg swelling. Gastrointestinal: Positive for abdominal pain, anorexia and nausea. Negative for abdominal distention, anal bleeding, blood in stool, constipation, diarrhea, hematemesis, hematochezia and melena. Genitourinary: Negative. Negative for hematuria, vaginal bleeding, vaginal discharge and difficultyurinating. Musculoskeletal: Negative. Negative for neck pain. Skin: Negative. Neurological: Negative. Psychiatric/Behavioral: Negative. Endocrine: Endocrine negative Physical Exam: ED Triage Vitals [09/01/20 0145] Weight 59 kg (130 lb) Actual or estimated Height BP (!) 155/113 Pulse 141 Resp 26 Temp 37.6 C (99.6 F) Temp source Oral SpO2 100 % Measured on Room air Physical Exam Constitutional: General: She is not in acute distress. Appearance: Normal appearance. She is well-developed and normal weight. She is not ill-appearing,toxic-appearing or diaphoretic. HENT: Head: Normocephalic and atraumatic. Right Ear: External ear normal. Left Ear: External ear normal. Nose: Nose normal. Mouth/Throat: Mouth: Mucous membranes are moist. Pharynx: No oropharyngeal exudate. Eyes: General: No scleral icterus. Right eye: No discharge. Left eye: No discharge. Conjunctiva/sclera: Conjunctivae normal. Pupils: Pupils are equal, round, and reactive to light. Neck: Musculoskeletal: Normal range of motion and neck supple. Thyroid: No thyromegaly. Cardiovascular: Rate and Rhythm: Regular rhythm. Tachycardia present. Pulses: Normal pulses. Heart sounds: Normal heart sounds. No murmur. Pulmonary: Effort: Pulmonary effort is normal. No respiratory distress. Breath sounds: Normal breath sounds. No stridor. No wheezing or rales. Chest: Chest wall: No tenderness. Abdominal: General: Bowel sounds are normal. There is no distension. Palpations: Abdomen is soft. There is no mass. Tenderness: There is no abdominal tenderness. There is no left CVA tenderness, guarding or rebound. Hernia: No hernia is present. Comments: Ileostomy intact with liquid greenish stool in bag. No bloody stools appreciated. [facility]apink Musculoskeletal: Normal range of motion. General: No tenderness or deformity. Lymphadenopathy: Cervical: No cervical adenopathy. Skin: General: Skin is warm and dry. Neurological: General: No focal deficit present. Mental Status: She is alert and oriented to person, place, and time. Cranial Nerves: No cranial nerve deficit. Sensory: No sensory deficit. Motor: No weakness or abnormal muscle tone. Coordination: Coordination normal. Deep Tendon Reflexes: Reflexes normal. Psychiatric: Behavior: Behavior normal. Thought Content: Thought content normal. Judgment: Judgment normal. Radiology: Hospital Encounter on 09/01/20 CT ABDOMEN PELVIS W CONTRAST Narrative EXAM: CT ABDOMEN PELVIS W CONTRAST HISTORY: Abd pain, acute, generalized COMPARISON: 08/23/2020 DOSE: 202 mGy*cm TECHNIQUE AND FINDINGS: Contiguous axial imaging from the level of the lung bases through the proximal thighs was performed after the uncomplicated administration intravenous contrast. Coronal and sagittal reconstructions were obtained. Auto mA and/or iterative reconstruction were used to reduce radiation dose. FINDINGS: LOWER THORAX: The lungs bases are clear. No cardiomegaly. LIVER: No focal hepatic lesions. Normal contour. GALLBLADDER AND BILIARY TREE: No biliary ductal dilation. Enhancing gallbladder wall with pericholecystic fluid. PANCREAS: No ductal dilation or masses. SPLEEN: No splenomegaly. ADRENAL GLANDS: No adrenal nodules. KIDNEYS: No hydronephrosis, stones, or masses. GI TRACT: No dilation or wall thickening. Right lower quadrant ostomy is noted. PELVIS/BLADDER: Normal bladder. Status post hysterectomy. VESSELS: Unremarkable. PERITONEUM AND RETROPERITONEUM: No free air or fluid. LYMPH NODES: No lymphadenopathy. BONES AND SOFT TISSUES: No acute osseous abnormality. Soft tissues are unremarkable. Impression Slight hyperenhancement gallbladder wall with pericholecystic fluid. Correlate for acute cholecystitis. Preliminary Report Dictated by Resident: Gumaro Diamond Lab Results (24h): Recent Results (from the past 24 hour(s)) CBC WITH DIFF Collection Time: 09/01/20 2:10 AM Result Value Ref Range WBC 5.96 4.30 - 11.10 10*3/L RBC 4.36 3.93 - 5.25 10*6/L HGB 13.4 11.6 - 15.0 g/dL HCT 39.6 35.7 - 45.2 % MCV 90.8 80.6 - 95.5 fL MCH 30.7 25.9 - 32.8 pg MCHC 33.8 31.6 - 35.1 g/dL RDW-SD 40.4 39.0 - 49.9 fL RDW-CV 12.1 12.0 - 15.5 % PLT 330 166 - 358 10*3/L MPV 10.7 9.5 - 12.9 fL NRBC/100 WBC 0.0 0.0 - 10.0 /100 WBCs NRBC x10^3 <0.01 10*3/L GRAN MAT (NEUT) % 77.7 % IMM GRAN % 0.20 % LYMPH % 18.3 % MONO % 3.5 % EOS % 0.0 % BASO % 0.3 % GRAN MAT x10^3(ANC) 4.63 1.88 - 7.09 10*3/uL IMM GRAN x10^3 <0.03 0.00 - 0.06 10*3/uL LYMPH x10^3 1.09 (L) 1.32 - 3.29 10*3/uL MONO x10^3 0.21 (L) 0.33 - 0.92 10*3/uL EOS x10^3 <0.03 (L) 0.03 - 0.39 10*3/uL BASO x10^3 <0.03 0.01 - 0.07 10*3/uL COMP. METABOLIC PANEL (86503) Collection Time: 09/01/20 2:10 AM Result Value Ref Range NA 137 135 - 145 mmol/L K 3.6 3.5 - 5.0 mmol/L CL 100 98 - 108 mmol/L CO2 TOTAL 26 23 - 31 mmol/L AGAP 11 2 - 16 BUN 19 7 - 23 mg/dL GLUCOSE 171 (H) 70 - 110 mg/dL CREATININE 0.98 0.50 - 1.04 mg/dL TOTAL BILI 0.8 0.1 - 1.1 mg/dL CALCIUM 10.4 8.6 - 10.6 mg/dL T PROTEIN 8.9 (H) 6.3 - 8.2 g/dL ALBUMIN 4.9 3.5 - 5.0 g/dL ALK PHOS 109 34 - 122 U/L ALTv 46 (H) 5 - 35 U/L AST(SGOT) 26 13 - 40 U/L eGFR Calculation (Non-) 61.4 mL/min/1.73m2 eGFR Calculation () 74.4 mL/min/1.73m2 LIPASE Collection Time: 09/01/20 2:10 AM Result Value Ref Range LIPASE 103 0 - 220 U/L Orders and Treatments: Orders Placed This Encounter Procedures CT ABDOMEN PELVIS W CONTRAST CBC WITH DIFF COMP. METABOLIC PANEL (38237) LIPASE URINALYSIS ADC / [facility] - DRUG SCREEN TRIAGE POCT TEST Orders Placed This Encounter Medications morpHINE injection 4 mg proMETHazine (PHENERGAN) 25 mg in NaCl 0.9% (NS) 50 mL piggyback diphenhydrAMINE (BENADRYL) injection 25 mg NaCl 0.9% (NS) bolus infusion 1,000 mL iohexol (OMNIPAQUE 350 BULK-100 mL) injection 120 mL morpHINE injection 4 mg proMETHazine (PHENERGAN) 25 mg in NaCl 0.9% (NS) 50 mL piggyback ED COURSE MDM: Coding Scoring Tools: No data recorded Diagnosis/Impression: ICD-10-CM ICD-9-CM 1. Chronic abdominal pain R10.9 789.00 G89.29 338.29 2. Generalized abdominal pain R10.84 789.07 Disposition/Condition: ED Disposition ED Disposition Condition Comment [...] as needed for Nausea and Vomiting (N/V). PROMETHAZINE 25 MG TABLET Take 1 tablet by mouth every 6 (six) hours as needed for Nausea and Vomiting (N/V). START taking Modified Medications as Prescribed No medications on file STOP taking these medications No medications on file Follow-up: Electronically signed by: Shayla Munoz MD 09/01/2020 1:55 AM documented in this encounter Miscellaneous Notes ED Nurse Note - Jaden Hurst RN - 09/01/2020 6:00 AM CDTPt given printed and verbal discharge instructions regarding abdominal pain, encouraged hydration, Prescriptions provided Pt verbalized understanding of instructions, pt awake alert oriented, resp reg unlabored, skin w/d, color appropriate for race, moves all ext well,pt encouraged to follow up with pcp Advised to seek medical attention for new/prolonged/worsening of symptoms, Symptoms improved No adverse reaction to meds given in ER noted upon discharge PIV d'cd, dressing to site, catheter in tact. Awake, alert oriented, resp reg unlabored, skin w/d, pt leaving amb with steady gait, in no apparent distress, D Nurse Note - Karena Lawson RN - 09/01/2020 5:53 AM CDTPt sleeping quietly, arousable when called name. No distress noted. documented in this encounter Plan of Treatment Date Type Specialty Care Team Description 09/03/2020 Nurse Visit Surgery Deepika Anthony, RN [address] [place] [address] 09/06/2020 Office Visit Colorectal Surgery Precious Chun MD [address] [facility] [address] [place] [address] [phone] Name Type Priority Associated Diagnoses Date/Ti me CT ABDOMEN PELVIS W IMAGING STAT Generalized abdominal 09/01/2020 3:02 AM CONTRAST pain CDT Health Maintenance Due Date [...] Comme nts CT ABDOMEN PELVIS W STAT 09/01/2020 3:02 AM Generalized ab dominal CONTRAST CDT pain Procedure Note - [facility], Radia nt Results Inft User - 09/01/2020 3:17 AM CDT EXAM: CT ABDOMEN PELVIS W CONTRAST HISTORY: Abd pain, acute, ge neralized COMPARISON: 08/23/2020 DOSE: 202 mGy*cm TECHNIQUE AND FINDINGS: Cont iguous axial imaging from the level of the lung bases through the proximal t highs was performed after the uncomplicated administration intravenous c ontrast. Coronal and sagittal reconstructions were obtained. Auto mA and/ or iterative reconstruction were used to reduce radiation dose. FINDINGS: LOWER THORAX: The lungs base s are clear. No cardiomegaly. LIVER: No focal hepatic lesi ons. Normal contour. GALLBLADDER AND BILIARY TREE : No biliary ductal dilation. Enhancing gallbladder wall with perich olecystic fluid. PANCREAS: No ductal dilation or masses. SPLEEN: No splenomegaly. ADRENAL GLANDS: No adrenal n odules. KIDNEYS: No hydronephrosis, stones, or masses. GI TRACT: No dilation or wal l thickening. Right lower quadrant ostomy is noted. PELVIS/BLADDER: Normal bladd er. Status post hysterectomy. VESSELS: Unremarkable. PERITONEUM AND RETROPERITONE UM: No free air or fluid. LYMPH NODES: No lymphadenopa thy. BONES AND SOFT TISSUES: No a cute osseous abnormality. Soft tissues are unremarkable. IMPRESSION Slight hyperenhancement gall bladder wall with pericholecystic fluid. Correlate for acute cholecys titis. Preliminary Report Dictated by Resident: Gumaro Diamond CBC WITH DIFF STAT 09/01/2020 2:10 AM Generalized abdomina l Results for this CDT pain procedure are i n the results section. COMP. METABOLIC STAT 09/01/2020 2:10 AM Generalized abdomi nal Results for this PANEL (88708) CDT pain procedure are in the results section. LIPASE STAT 09/01/2020 2:10 AM Generalized abdominal Results for this CDT pain procedure are i n the results section. documented in this encounter Results LIPASE (09/01/2020 2:10 AM CDT) Pathologist Sig [facility] LIPASE 103 0 - 220 U/L [facility] Specimen Blood - VENOUS Performing Organization Address City/State/Zipcode Phone Number [facility] CLIA: [id number] [place] [address] COMP. METABOLIC PANEL (89011) (09/01/2020 2:10 AM CDT) Pathologist [facility] [employer] NA 137 135 - 145 [facility] mmol/L [facility] K 3.6 3.5 - 5.0 [facility] mmol/L [facility] CL 100 98 - 108 mmol/L [facility] CO2 TOTAL 26 23 - 31 mmol/L [facility] AGAP 11 2 - 16 [facility] BUN 19 7 - 23 mg/dL [facility] GLUCOSE 171 (H) 70 - 110 mg/dL [facility] CREATININE 0.98 0.50 - 1.04 [facility] mg/dL [facility] TOTAL BILI 0.8 0.1 - 1.1 mg/dL [facility] CALCIUM 10.4 8.6 - 10.6 [facility] mg/dL [facility] T PROTEIN 8.9 (H) 6.3 - 8.2 g/dL [facility] ALBUMIN 4.9 3.5 - 5.0 g/dL [facility] ALK PHOS 109 34 - 122 U/L [facility] ALTv 46 (H) 5 - 35 U/L [facility] AST(SGOT) 26 13 - 40 U/L [facility] eGFR Calculation 61.4 mL/min/1.73m2 [facility] ([facility]AT[facility] [place]) eGFR Calculation 74.4 mL/min/1.73m2 [facility] () [facility] Specimen Blood - VENOUS Narrative Performed At Association of Glomerular Filtration Rate (GFR) [facility] and Staging of Kidney Disease* [...] tests). Performing Organization Address City/State/Zipcode Phone Number [facility] CLIA: [id number] [place], [place] [id number] LABORATORY [address] CBC WITH DIFF (09/01/2020 2:10 AM CDT) Surgery [facility] WBC 5.96 4.30 - 11.10 [facility] 10*3/L [facility] RBC 4.36 3.93 - 5.25 [facility] 10*6/L [facility] HGB 13.4 11.6 - 15.0 [facility] g/dL HOSPITAL LAB[facility] HCT 39.6 35.7 - 45.2 % [facility] MCV 90.8 80.6 - 95.5 fL [facility] MCH 30.7 25.9 - 32.8 pg [facility] MCHC 33.8 31.6 - 35.1 [facility] g/dL [facility] RDW-SD 40.4 39.0 - 49.9 fL [facility] RDW-CV 12.1 12.0 - 15.5 % [facility] PLT 330 166 - 358 [facility] 10*3/L HOSPITAL [facility] MPV 10.7 9.5 - 12.9 fL [facility] NRBC/100 WBC 0.0 0.0 - 10.0 /100 [facility] WBCs [facility] NRBC x10^3 <0.01 10*3/L [facility] GRAN MAT (NEUT) % 77.7 % [facility] IMM GRAN % 0.20 % [facility] LYMPH % 18.3 % [facility] MONO % 3.5 % [facility] EOS % 0.0 % [facility] BASO % 0.3 % [facility] GRAN MAT x10^3(ANC) 4.63 1.88 - 7.09 [facility] 10*3/uL [facility] IMM GRAN x10^3 <0.03 0.00 - 0.06 [facility] 10*3/uL [facility] LYMPH x10^3 1.09 (L) 1.32 - 3.29 [facility] 10*3/uL [facility] MONO x10^3 0.21 (L) 0.33 - 0.92 [facility] 10*3/uL [facility] EOS x10^3 <0.03 (L) 0.03 - 0.39 [facility] 10*3/uL [facility] BASO x10^3 <0.03 0.01 - 0.07 [facility] 10*3/uL [facility] Specimen Blood - VENOUS Performing Organization Address City/State/Zipcode Phone Number [facility] CLIA: [id number] [place] [address] LABORATORY [address] [facility] documented in this encounter Visit Diagnoses Diagnosis Chronic abdominal pain - Primary Abdominal pain, unspecified site Generalized abdominal pain Abdominal pain, generalized documented in this encounter Administered Medications Medication Order MAR Action Action Date Dose Rate Site diphenhydrAMINE (BENADRYL) Given 09/01/2020 2:20 AM CDT 25 mg injection 25 mg 25 mg, Slow IV Push, ONCE, 1 dose, 09/01/20 at 0300, STAT iohexol (OMNIPAQUE 350 BULK-100 mL) Given 09/01/2020 2:56 AM CD T 120 mL injection 120 mL 120 mL, Intravenous, ONCE, 1 dose, 09/01/20 at 0315, Routine morpHINE injection 4 mg Given 09/01/2020 2:22 AM CDT 4 mg 4 mg, Slow IV Push, ONCE, 1 dose, 09/01/20 at 0300, STAT morpHINE injection 4 mg Given 09/01/2020 4:55 AM CDT 4 mg 4 mg, Slow IV Push, ONCE, 1 dose, 09/01/20 at 0600, STAT NaCl 0.9% (NS) bolus infusion New Bag 09/01/2020 2:21 AM CDT 1,000 mL 999 mL/hr 1,000 mL at 999 mL/hr, 1,000 mL, IV Infusion, ONCE, 1 dose, 09/01/20 at 0300, STAT proMETHazine (PHENERGAN) 25 mg in NaCl 0.9% Given 09/01/2020 3:00 AM CDT 25 mg (NS) 50 mL piggyback 25 mg, IV Piggyback, ONCE, 1 dose, 09/01/20 at 0300, 50 mL proMETHazine (PHENERGAN) 25 mg in NaCl 0.9% Given 09/01/2020 4:56 AM CDT 25 mg (NS) 50 mL piggyback 25 mg, IV Piggyback, ONCE, 1 dose, 09/01/20 at 0600, 50 mL documented in this encounter Insurance Payer Benefit Plan / Subscriber ID Effective Phone Address [employer] y[employer] Dates MEDICAID MEDICAID SSI PENDING 2020-Pres [address] [employer] Pending [place]ING [place] [address] documented as of this encounter"
--- OUTSIDE RECORDS SUMMARY | 2020-10-24 06:57 | XMS REPORT | Summary of Care ---
:1975 Author Organization [facility] - [address] [address] Care Team Providers Name Role Phone Pcp, Does Not Have A Primary Care Provider Annmarie Ramirez professional development director Yen Fuentes ALARM SIGNAL OPERATOR Verification Engineer Unavailable Reason for Visit Reason Comments Follow-up Pt on the way to ER for stom ach pain Encounter Details Date Type Department Care Team Description 09/13/2020 Patient Outreach [facility] Deepika Ramirez, RN Follow-up (Pt on [address] to ER for [place] BOULEVARD stomach pain) [place], [place] [address] Allergies Active Allergy Reactions [...] as of this encounter (statuses as of 09/13/2020) Medications Medication Sig Dispensed Refills Start Date End Date Status ALPRAZolam (XANAX) 2 Take 2 mg by 0 Suspended mg tablet mouth 2 (two) times daily. dextroamphetamine-amp Take 30 mg by 0 Suspended hetamine (ADDERALL) mouth 2 (two) 30 mg tablet times daily. Pantoprazole Take 40 mg by 0 Alejandra pended (PROTONIX) 40 mg mouth 2 (two) delayed-release times daily. suspension proMETHazine 25 mg Take 1 tablet by 12 tablet 0 08/18/2019 Suspended tabletIndications: mouth every 6 Generalized abdominal (six) hours as pain needed for Nausea and Vomiting (N/V). Additional Information metoprolol tartrate 25 mg Take 1 tablet by 60 tablet 0 019 Suspended tabletIndications: Tachycardia mouth 2 (two) times daily. Additional Information acetaminophen 325 mg Take 2 tablets 50 tablet 1 08/01/2020 Suspended tabletIndications: SBO by mouth every (small bowel obstruction) 6 (six) hours. Additional Information ibuprofen 600 mg Take 1 tablet by 40 tablet 0 08/01/2020 Suspended tabletIndications: SBO (small mouth every 6 (six) bowel obstruction) hours. Additional Information loperamide 2 mg Take 1 capsule by 14 capsule 1 08/01/2020 Suspended capsuleIndications: SBO (small mouth daily. bowel obstruction) Additional Information methocarbamoL 500 mg Take 1 tablet by 40 tablet 0 08/01/2020 Suspended tabletIndications: SBO (small mouth 4 (four) bowel obstruction) times daily. Additional Information proMETHazine 25 mg Take 1 tablet by 12 tablet 0 08/17/2020 Suspended tabletIndications: Nausea and mouth every 6 (six) vomiting in adult hours as needed for Nausea and Vomiting (N/V). Additional Information HYDROcodone-acetaminophen Take 1 tablet 14 0 09/10/2020 09/17/2020 Suspended 5-325 mg tabletIndications: by mouth every tablet acute pain 6 (six) hours as needed for Pain (scale 4-6) for up to 7 days. Indications: acute pain Additional Information documented as of this encounter (statuses as of 09/13/2020) Active Problems Problem Noted Date JULIAN (acute kidney injury) 09/13/2020 Abdominal pain 09/04/2020 Abdominal pain, generalized 09/03/2020 Overview: Added automatically from request for [address] [id number] SBO (small bowel obstruction) 07/24/2020 Crohn's disease of colon with complication 07/23/2020 Overview: Added automatically from request for kamil[address] [id number] Sinus tachycardia 08/23/2019 Pneumonia 08/18/2019 Drug-seeking behavior 03/10/2019 Multifocal pneumonia 01/24/2018 Dehydration 01/05/2018 IBS (irritable bowel syndrome) 10/02/2011 Depression 10/02/2011 documented as of this encounter (statuses as of 09/13/2020) Social History Tobacco Use Types Packs/Day Years [...] been in contact with No / Unsure 09/13/2020 2:40 PM CDT someone who was confirmed or suspected to have Coronavirus / COVID-19? documented as of this encounter Last Filed Vital Signs Not on filedocumented in this encounter Progress Notes Deepika Ramirez RN - 09/13/2020 9:59 AM CDTPt has been admitted from ED and will be treated for JULIAN. P CM will f/u with patient upon discharge. BITA Thapa, RN, [facility] Outpatient Health Information ClerkDirector Of Pharmacy Health Program O: [phone] M: [phone] Deepika Salinas RN - 09/13/2020 9:59 AM CDTCHP F/U: The patient texted CM stating, "GM, I'm omw to the [facility] my stomach hurts it's very irritated smells with mucus and I'm cold and sweating I'm scared." Pt texted saying her stomach is not firm to touch. She did not measure her temperature and she is inthe ambulance heading to ER. CM will review patient's encounter once she returns to ER. BITA Thapa, RN, [facility] Outpatient Health Information ClerkDirector Of Pharmacy Health Program O: [phone] M: [phone] documented in this encounter Plan of Treatment Date Type Specialty Care Team Description 09/27/2020 Office Visit Colorectal Surgery Precious Chnu MD [address] [facility] [address] [place] [address] [phone] Health Maintenance Due Date Last Done Comments [...] ype Group Dates MEDICAID MEDICAID SSI PENDING 2020-Pre [address] Pending PENDING PENDING sent [place] [id number] documented as of this encounter
--- OUTSIDE RECORDS SUMMARY | 2020-10-24 06:57 | XMS REPORT | Summary of Care ---
:1975 Author Organization [facility] - [facility] Address [address] [place] [address] Care Team Providers Name Role Phone Pcp, Does Not Have A Primary Care Provider Annmarie Ramirez RNinsole toe snipping machine operator Yen Fuentes RESIDENTIAL BUILDING INSPECTOR Administrative Underwriter Unavailable Reason for Visit Reason Comments Transition Of Care Encounter Details Date Type Department Care Team Description 09/12/2020 Transition of Care [facility] Edis Damon Transition Of Care [facility]- [address] [place] [address] Allergies Active Allergy Reactions Severity Noted Date [...] as of this encounter (statuses as of 09/15/2020) Medications Medication Sig Dispensed Refills Start Date [...] as of this encounter (statuses as of 09/15/2020) Active Problems Problem Noted Date Abdominal pain 09/04/2020 Abdominal pain, generalized 09/03/2020 Overview: Added automatically from request for kamilah domingo [id number] SBO (small bowel obstruction) 07/24/2020 Crohn's disease of colon with complication 07/23/2020 Overview: Added automatically from request for kamilah domingo [id number] Sinus tachycardia 08/23/2019 Pneumonia 08/18/2019 Drug-seeking behavior 03/10/2019 Multifocal pneumonia 01/24/2018 Dehydration 01/05/2018 IBS (irritable bowel syndrome) 10/02/2011 Depression 10/02/2011 documented as of this encounter (statuses as of 09/15/2020) Social History Tobacco Use Types Packs/Day Years [...] TRANSITIONAL CARE MANAGEMENT ASSESSMENT 09/12/2020 Jessica Farah [id number] Jessica Farah is a 44 year old Black or female was admitted on 09/03/20 to [facility] ([facility] [place] [address]. She was discharged on 09/10/20 with discharge disposition of HR- Routine Discharge. Admitting Physician: Sean Torres Discharge Diagnosis: Abdominal pain Called Tj Larios on cell number no pager on hand. Submitted via [employer] email to Tj Larios : Post d/c [...] hard time she needs FMLA. Referral to [facility] submitted for CM and SW needs. Pending call back from physician. No linked episodes TCM [id number] outreach documentation: Future Appointments: documented in this encounter Plan of Treatment Date Type Specialty Care Team Description 09/27/2020 Office Visit Colorectal Surgery Precious Chun MD [address] [facility] [address] [place], [place] [id number] Health Maintenance Due Date Last Done Comments [...]
--- OUTSIDE RECORDS SUMMARY | 2020-10-24 06:57 | XMS REPORT | Summary of Care ---
:1975 Author Organization [facility] - [address] [address] Care Team Providers Name Role Phone Pcp, Does Not Have A Primary Care Provider Annmarie Ramirez flat ironer Yen Fuentes ASSOCIATE SPA DIRECTOR Boat Dock Operator Unavailable Reason for Visit Reason Comments Follow-up Pt on the way to ER for stom ach pain Encounter Details Date Type Department Care Team Description 09/13/2020 Patient Outreach [facility] Deepika Ramirez, RN Follow-up (Pt on [address] to ER for [place] [address] stomach pain) [place], [place] [address] Allergies Active Allergy Reactions [...] of 09/13/2020) Active Problems Problem Noted Date Abdominal pain 09/04/2020 Abdominal pain, generalized 09/03/2020 Overview: Added automatically from request for kamilah domingo [id number] SBO (small bowel obstruction) 07/24/2020 Crohn's disease of colon with complication 07/23/2020 Overview: Added automatically from request for kamilah domingo [id number] Sinus tachycardia 08/23/2019 Pneumonia 08/18/2019 Drug-seeking behavior [...] Deepika Ramirez RN - 09/13/2020 9:59 AM CDTCHP F/U: The patient texted CM stating, "GM, I'm omw to the [facility] my stomach hurts it's very irritated smells with mucus and I'm cold and sweating I'm scared." Pt texted saying her stomach is not firm to touch. She did not measure her temperature and she is inthe ambulance heading to ER. CM will review patient's encounter once she returns to ER. BITA Thapa, RN, [facility] Outpatient Digital Media DirectorWaiter/Waitress HeadUnc Health Nash O: [phone] M: [phone] documented in this encounter Plan of Treatment Date Type Specialty Care Team Description 09/27/2020 Office Visit Colorectal Surgery Precious Chun MD [address] [facility] [address] [place] [address] [phone] Health Maintenance Due Date Last Done Comments [...]
--- OUTSIDE RECORDS SUMMARY | 2020-10-24 06:57 | XMS REPORT | Summary of Care ---
:1975 Author Organization [address] [address] Care Team Providers Name Role Phone Pcp, Does Not Have A Primary Care Provider Annmarie Ramirez RNrecording engineer Yen Fuentes AIRPORT GUIDE Pillowcase Sewer Unavailable Reason for Visit Reason Comments Assessment Encounter Details Date Type Department Care Team Description 09/12/2020 [facility]reach [facility] Nick Fuentes, AIRPORT GUIDE Assessment Network[address] [address] Allergies Active Allergy Reactions Severity Noted Date [...] Added automatically from request for kamilah domingo [id number] SBO (small bowel obstruction) 07/24/2020 Crohn's disease of colon with complication 07/23/2020 Overview: Added automatically from request for kamilah domingo [id number] Sinus tachycardia 08/23/2019 Pneumonia 08/18/2019 Drug-seeking behavior [...] on filedocumented in this encounter Progress Notes Terrence Fuentes MSW - 09/12/2020 12:11 PM CDTSocial Work Note: ASSISTANT WOMEN'S ROWING COACH spoke with Pt per referral from Lynda SALDAÑA, for assessment of disability and other resources Pt may be eligible for. Pt agreed to meet with GREGORY Ocampo on Monday 09/17 @ 9am. ASSISTANT WOMEN'S ROWING COACH provided contact information and will f/u at appointment. Terrence Fuentes LMSW [facility] Ph. documented in this encounter Plan of Treatment Date Type Specialty Care Team Description 09/27/2020 Office Visit Colorectal Surgery Precious Chun MD [address] [facility] [address] [place] [address] [phone] Health Maintenance Due Date Last Done Comments [...]
--- OUTSIDE RECORDS SUMMARY | 2020-10-24 06:58 | XMS REPORT | Summary of Care ---
:1975 Author Organization [address] [address] Care Team Providers Name Role Phone Pcp, Does Not Have A Primary Care Provider Annmarie Ramirez director of research and development Yen Fuentes ASSEMBLER [employer] Resident Hall Director Unavailable Reason for Visit Reason Comments Hospital F/U Follow-up Encounter Details Date Type Department Care Team Description 09/16/2020 Patient Outreach [facility] Deepika Ramirez, [facility] Hospital F/U; [address] Follow-up [place], [place] [address] Allergies Active Allergy Reactions [...] as of this encounter (statuses as of 09/16/2020) Medications Medication Sig Dispensed Refills Start Date [...] as of this encounter (statuses as of 09/16/2020) Active Problems Problem Noted Date JULIAN (acute kidney injury) 09/13/2020 Abdominal pain 09/04/2020 Abdominal pain, generalized 09/03/2020 Overview: Added automatically from request for kamilah domingo [id number] SBO (small bowel obstruction) 07/24/2020 Crohn's disease of colon with complication 07/23/2020 Overview: Added automatically from request for kamilah domingo [id number] Sinus tachycardia 08/23/2019 Pneumonia 08/18/2019 Drug-seeking behavior 03/10/2019 Multifocal pneumonia 01/24/2018 Dehydration 01/05/2018 IBS (irritable bowel syndrome) 10/02/2011 Depression 10/02/2011 documented as of this encounter (statuses as of 09/16/2020) Social History Tobacco Use Types Packs/Day Years [...] encounter Progress Notes Deepika Ramirez RN - 09/16/2020 2:39 PM CSTCHP: F/u call deferred d/t to patient currently being admitted. BITA Thapa, RN, [facility] Outpatient Studio DirectorCustomer Technical Services ManagerLifebrite Community Hospital Of Stokes O: [phone] M: [phone] documented in this encounter Plan of Treatment Date Type Specialty Care Team Description 09/27/2020 Office Visit Colorectal Surgery Precious Chun MD [address] [facility] [address] [place] [address] [phone] Health Maintenance Due Date Last Done Comments PNEUMOCOCCAL 0-64 YEARS COMBINED SERIES (1 1980 of 3 - PCV13) Depression Screening 1986 DTaP,Tdap,and Td Vaccines (1 - Tdap) 1993 PAP SMEAR 07/28/2014 07/28/2011 Breast Cancer Screening (MAMMOGRAM) 2014 INFLUENZA VACCINE (#1) 2020 COLON CANCER SCREENING ANNUAL FIT/FOBT 2024 01/0501/05/2018 COLONOSCOPY 09/10/2030 09/10/2020 Colorectal Cancer Screening 09/10/2030 documented as of this encounter Results Not on filedocumented in this encounter Insurance Payer Benefit Plan / Subscriber ID Effective Phone Address T ype Group Dates MEDICAID MEDICAID SSI PENDING 2020-Pre [address] Pending P[place] [address] documented as of this encounter
--- OUTSIDE RECORDS SUMMARY | 2020-10-24 06:58 | XMS REPORT | Summary of Care ---
:[address] [facility] - [address] [address] Care Team Providers Name Role Phone Pcp, Does Not Have A Primary Care Provider Annmarie Ramirez autoclave operator Yen Fuentes ASSOCIATE PROFESSOR OF ECONOMICS Direct Service Professional Unavailable Reason for Visit Reason Comments Follow-up Pt continues to be admitted. Encounter Details Date Type Department Care Team Description 09/17/2020 Patient Outreach [facility] Deepika Ramirez, RN Follow-up ([facility] continues to be [facility] admitted[facility] [place], [place] [address] Allergies Active Allergy Reactions [...] as of this encounter (statuses as of 09/17/2020) Medications Medication Sig Dispensed Refills Start Date [...] as of this encounter (statuses as of 09/17/2020) Active Problems Problem Noted Date JULIAN (acute kidney injury) 09/13/2020 Abdominal pain 09/04/2020 Abdominal pain, generalized 09/03/2020 Overview: Added automatically from request for k[address] [id number] SBO (small bowel obstruction) 07/24/2020 Crohn's disease of colon with complication 07/23/2020 Overview: Added automatically from request for kamil[address] lane [id number] Sinus tachycardia 08/23/2019 Pneumonia 08/18/2019 Drug-seeking behavior 03/10/2019 Multifocal pneumonia 01/24/2018 Dehydration 01/05/2018 IBS (irritable bowel syndrome) 10/02/2011 Depression 10/02/2011 documented as of this encounter (statuses as of 09/17/2020) Social History Tobacco Use Types Packs/Day Years [...] filedocumented in this encounter Progress Notes Deepika Ramirez, RN - 09/17/2020 9:50 AM CSTCHP f/u: CM left message with inpt CM team at [facility] to f/u on the status of the patient and the estimated discharge date and discharge plan for the patient. BITA Thapa, RN, [facility] Outpatient Electrician AssistantInternal GrinderDuke University Hospital O: [phone] M: [phone] documented in this encounter Plan of Treatment Date Type Specialty Care Team Description 09/27/2020 Office Visit Colorectal Surgery Precious Chun MD [address] [facility] [address] [place] [address] Health Maintenance Due Date Last [...] Universi ty Pending [place] [address] documented as of this encounter
--- OUTSIDE RECORDS SUMMARY | 2020-10-24 06:58 | XMS REPORT | Summary of Care ---
:1975 Author Organization [facility] Address [address] [place] [address] Care Team Providers Name Role Phone Pcp, Does Not Have A Primary Care Provider Annmarie Ramirez RNcash applications coordinator Yen Fuentes MOTION PICTURE CAMERA OPERATOR Chemical Project Engineer Unavailable Reason for Visit Reason Comments Results Encounter Details Date Type Department Care Team Description 09/12/2020 Telephone [facility] GASTROENTEROLOGY Cor Mariana march MD Results -[facility] [address] [place] [address] [place], [place] [phone] [place] [address] [place] [phone] Allergies Active Allergy Reactions Severity Noted Date [...] as of this encounter (statuses as of 09/18/2020) Medications Medication Sig Dispensed Refills Start Date [...] for Nausea and Vomiting (N/V). Additional Information documented as of this encounter (statuses as of 09/18/2020) Active Problems Problem Noted Date JULIAN (acute kidney injury) 09/13/2020 Abdominal pain 09/04/2020 Abdominal pain, generalized 09/03/2020 Overview: Added automatically from request for kamil[address] [id number] SBO (small bowel obstruction) 07/24/2020 Crohn's disease of colon with complication 07/23/2020 Overview: Added automatically from request for kamil[address] [id number] Sinus tachycardia 08/23/2019 Pneumonia 08/18/2019 Drug-seeking behavior 03/10/2019 Multifocal pneumonia 01/24/2018 Dehydration 01/05/2018 IBS (irritable bowel syndrome) 10/02/2011 Depression 10/02/2011 documented as of this encounter (statuses as of 09/18/2020) Social History Tobacco Use Types Packs/Day Years [...] Telephone Encounter - Ami Hunter RN - 09/18/2020 10:06 AM CSTAppointment 09/27/[address] Adiel Hunter RN R DELIVERER Telephone Encounter - Kiara Bright LVN - 09/12/2020 10:16 AM CDTTelephone call to patient to inform of results as stated by Dr Allen. Patient agreed and v/u. Patient would like message sent to Dr Chun office in regards to what the next steps in plan of care will be seeing that procedure was completed. Patient would like to know if she will be able to schedule surgery. She states her abdomen is distended and there is some bleeding from stoma. elephone Encounter - Kiara Brihgt LVN - 09/12/2020 10:16 AM CDT Mariana Allen MD P Gi Nurse; Farooq Knight MD GI nurse - please let the patient know the biopsies we took during his procedure in the hospital were normal. No signs of Crohn's disease or inflammation in the colon. Mariana Allen MD Metals Sales Representative Division of Gastroenterology and Hepatology [facility] documented in this encounter Plan of Treatment Date Type Specialty Care Team Description 09/27/2020 Office Visit Colorectal Surgery Precious Chun MD [address] [facility] [address] [place] [address] [phone] Health Maintenance Due Date Last Done Comments [...]
--- OUTSIDE RECORDS SUMMARY | 2020-10-24 06:58 | XMS REPORT | Summary of Care ---
:1975 Author Organization [address] [address] Care Team Providers Name Role Phone Pcp, Does Not Have A Primary Care Provider Annmarie Ramirez RNoutreach analyst Yen Fuentes POTATO BUCKER Accounting Generalist Unavailable Reason for Visit Reason Comments Social Work Encounter Details Date Type Department Care Team Description 09/16/2020 Patient Outreach [facility] Nick Fuentes, POTATO BUCKER Social Work Network[address] [address] Allergies Active Allergy Reactions Severity Noted Date [...] Added automatically from request for kamilah domingo [id number] SBO (small bowel obstruction) 07/24/2020 Crohn's disease of colon with complication 07/23/2020 Overview: Added automatically from request for kamilah domingo [id number] Sinus tachycardia 08/23/2019 Pneumonia 08/18/2019 Drug-seeking behavior [...] encounter Progress Notes Terrence Fuentes MSW - 09/16/2020 3:28 PM CSTSocial Worker Note: FORESTRY CONSERVATION WORKER received phone call from patient stating that she was in the hospital and needed to reschedule appointment the following day for another time. Patient stated that she will call FORESTRY CONSERVATION WORKER when D/C from hospital in order to schedule visit at [facility]. Terrence Fuentes LMSW [facility] Ph. UCT LINE MANAGER documented in this encounter Plan of Treatment Date Type Specialty Care Team Description 09/27/2020 Office Visit Colorectal Surgery Precious Chun MD [address] [facility] [address] [place] [address] [phone] Health Maintenance Due Date Last Done Comments [...] 301 [address] ty Pending [place] [address] documented as of this encounter
--- OUTSIDE RECORDS SUMMARY | 2020-10-24 06:59 | XMS REPORT | Summary of Care ---
:1975 [address] 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 Pantoprazole Take 40 mg by 0 Act pasha (PROTONIX) 40 mg mouth 2 (two) delayed-release times daily. suspension metoprolol tartrate 25 Take 1 tablet by 60 tablet 0 08/24/2019 Active mg tabletIndications: mouth 2 (two) Tachycardia times daily. acetaminophen 325 mg Take 2 tablets 50 tablet 1 08/01/2020 Active tabletIndications: SBO by mouth every 6 (small bowel (six) hours. obstruction) ibuprofen 600 mg Take 1 tablet by 40 tablet 0 08/01/2020 Active tabletIndications: SBO mouth every 6 (small bowel (six) hours. obstruction) methocarbamoL 500 mg Take 1 tablet by 40 tablet 0 08/01/2020 Active tabletIndications: SBO mouth 4 (four) (small bowel times daily. obstruction) HYDROcodone-acetaminop Take 1 tablet by 14 tablet 0 09/18/2020 Active hen 5-325 mg mouth every 6 tabletIndications: (six) hours as acute pain needed for Pain (scale 4-6). Indications: acute pain proMETHazine 25 mg Take 1 tablet by 24 tablet 0 09/18/2020 Active tabletIndications: mouth every 6 Generalized abdominal (six) hours as pain needed for Nausea and Vomiting (N/V) for up to 20 days. documented as of this encounter (statuses as of 09/19/2020) Active Problems Problem Noted Date JULIAN (acute kidney injury) 09/13/2020 Abdominal pain 09/04/2020 Abdominal pain, generalized 09/03/2020 Overview: Added automatically from request for kamilah domingo [id number] SBO (small bowel obstruction) 07/24/2020 Crohn's disease of colon with complication 07/23/2020 Overview: Added automatically from request for kamilah domingo [id number] Sinus tachycardia 08/23/2019 Pneumonia 08/18/2019 Drug-seeking behavior 03/10/2019 Multifocal pneumonia 01/24/2018 Dehydration 01/05/2018 IBS (irritable bowel syndrome) 10/02/2011 Depression 10/02/2011 documented as of this encounter (statuses as of 09/19/2020) Social History Tobacco Use Types Packs/Day Years [...] Notes Telephone Encounter - Lynda Damon - 09/19/2020 1:25 PM CST TRANSITIONAL CARE MANAGEMENT ASSESSMENT 09/19/2020 Jessica Farah [id number] Jessica Farah is a 44 year old Black or female was admitted on 09/13/20 to [facility]. She was discharged on 09/18/20 with discharge disposition of HR- Routine Discharge. Admitting Physician: Roby Jean Discharge Diagnosis: JULIAN Pt. Voiced that she is doing better. Pt. C/o IV site tender to touch some pus discharge, swelling and limited stretching to right arm. Pt. instructed to apply warm compress to site. QID. Instructed if worsens or swelling not decreased to seek medical attention. Pt. Verbalized understanding. Pt. Voices that she is going to attempt to f/u with [employer] card. Pt. Resides in Smart Lunches. [facility] Episodes Type: Episode: Status: Noted: Resolved: Last update: Updated by: TRANSITION OF CARE tcm Active 09/18/2020 09/19/2020 1:24 PM Lynda Damon Comments: TCM [id number] outreach documentation: Discharge Assessment Chart Assessed: 09/19/20 TCM Outreach Completed: 09/19/20 Do you have a few minutes to speak with me about how you are doing at home?: Yes Discharge Instructions Do you understand your at-home instructions?: Yes Medications Have you filled your prescriptions and do you have them in your home? : Yes Do you know how to take your medications?: Yes Can you provide me with the names or descriptions of any [id number] or supplements you are currently taking?: Yes Supplies Did you receive applicable home medical supplies/equipment?: Yes Do you understand how to use the medical supplies/equipment?: Yes Follow Up Appointment Has a follow up appointment been scheduled?: Yes Do you have any questions about your follow up appointments?: No Are you able to get to your appointment? Who will be taking you?: Yes(does not know if she will be able to make will call [facility] if needs too) Home Health Assistance Has the home health nurse contacted you since you've been home?: N/A Survey - Recognition Is there anything you would like to share about your recent hospitalization, or anyone you would like to recognize?: No Do you have any suggestions for improvement?: No Do you have any other questions or concerns at this time?: Yes Future Appointments: Future Appointments Provider Department Dept Phone 09/27/2020 9:30 AM Precious Chun MD [facility]-Colorectal Surgery [phone] documented in this encounter Plan of Treatment Date Type Specialty Care Team Description 09/27/2020 Office Visit Colorectal Surgery Precious Chun MD [address] [facility] [address] [place] [address] [phone] Health Maintenance Due Date Last Done Comments [...] [address] [employer] Pending PENDING PENDING sent NIYAH Kern [id number] documented as of this encounter
--- OUTSIDE RECORDS SUMMARY | 2020-10-24 06:59 | XMS REPORT | Summary of Care ---
:1975 [address] [facility] Address [address] [place] [id number] Care Team Providers Name Role Phone Pcp, Does Not Have A Primary Care Provider Annmarie Ramirez baker doughnut Yen Fuentes COMMERCIAL MANAGEMENT ACCOUNTANT Coppersmith Helper Unavailable Reason for Referral (Routine) Status Reason Specialty Diagnoses / Referred By Referred To Procedures Contact Contact Closed AN-PAIN MEDICINE / Diagnoses JULIAN (acute kidney injury) Radha Aponte Pain Medicine Procedures Discharge Follow-Up: Specialty Service AN-PAIN MEDICINE; 3-5 Days DONAL GuzmanP [address] [facility] [place] [address] (Routine) Status Reason Specialty Diagnoses / Referred By Referred To Procedures Contact Contact New Request IM-GASTROENTEROLOG Diagnoses JULIAN (acute kidney injury) Radha Aponte Y / Colorectal Procedures Discharge Follow-Up: Specialty Service IM-GASTROENTEROLOGY; 2 Weeks MeganDONAL oronaP Surgery [address] [facility] [place] [address] (Routine) Status Reason Specialty Diagnoses / Referred By Referred To Procedures Contact Contact Closed Family Medicine Diagnoses JULIAN (acute kidney injury) Radha Aponte Pcp, Patient Does Procedures Discharge Follow-up: PCP PATIENT DOES NOT HAVE A PCP; 1 Week GISELLA Guzman Not Have A [address] [facility] [address] Phone: [phone] Phone: Radiology Services (STAT) Status Reason Specialty Diagnoses / Referred By Referred To Procedures Contact Contact New Request Diagnostic Diagnoses Lower abdominal pain Vomiting and diarrhea Hellen Sorenson, Radiology Procedures XR ABDOMEN [address] [id number] Reason for Visit Reason Comments Other pain/irritation around colos deb stoma Auth/Cert Status Reason Specialty Diagnoses / Referred By Referred To Procedures Contact Contact Emergency Medicine [facility] [address] [place] [address] Fax: Encounter Details Date Type Department Care Team Description 09/13/2020 - [facility] Medicine Hellen Sorenson, [address] [id number] JULIAN (acute kidney 09/18/2020 Encounter Surgery Unit Roby Jean MD [address] [place] [phone] injury) [address] [place] [id number] Allergies Active Allergy Reactions Severity Noted Date [...] 2 (two) delayed-release times daily. suspension metoprolol Take 1 tablet 60 tablet 0 08/24/2019 Acti ve tartrate 25 mg by mouth 2 tabletIndications: (two) times Tachycardia daily. acetaminophen 325 Take 2 50 tablet 1 08/01/2020 A ctive mg tablets by 1 tabletIndications: mouth every 6 SBO (small bowel (six) hours. obstruction) ibuprofen 600 mg Take 1 tablet 40 tablet 0 08/01/2020 Active tabletIndications: by mouth SBO (small bowel every 6 (six) obstruction) hours. methocarbamoL 500 Take 1 tablet 40 tablet 0 08/01/2020 Active mg by mouth 4 tabletIndications: (four) times SBO (small bowel daily. obstruction) HYDROcodone-acetam Take 1 tablet 14 tablet 0 09/18/2020 Active inophen 5-325 mg by mouth tabletIndications: every 6 (six) acute pain hours as needed for Pain (scale 4-6). Indications: acute pain proMETHazine 25 mg Take 1 tablet 24 tablet 0 09/18/2020 Active tabletIndications: by mouth 0 Generalized every 6 (six) abdominal pain hours as needed for Nausea and Vomiting (N/V) for up to 20 days. dextroamphetamine- Take 30 mg by 0 02 Discontinued amphetamine mouth 2 (two) 0 (ADDERALL) 30 mg times daily. tablet proMETHazine 25 mg Take 1 tablet 12 tablet 0 08/18/2019 Discontinued tabletIndications: by mouth 0 ( Reorder) Generalized every 6 (six) abdominal pain hours as needed for Nausea and Vomiting (N/V). loperamide 2 mg Take 1 14 capsule 1 08/01/2020 Di scontinued capsuleIndications capsule by 0 : SBO (small bowel mouth daily. obstruction) proMETHazine 25 mg Take 1 tablet 12 tablet 0 08/17/2020 Discontinued tabletIndications: by mouth 0 Nausea and every 6 (six) vomiting in adult hours as needed for Nausea and Vomiting (N/V). HYDROcodone-acetam Take 1 tablet 14 tablet 0 09/10/2020 Discontinued inophen 5-325 mg by mouth 0 tabletIndications: every 6 (six) acute pain hours as needed for Pain (scale 4-6) for up to 7 days. Indications: acute pain documented as of this encounter (statuses as of 09/18/2020) Active Problems Problem Noted Date JULIAN (acute kidney injury) 09/13/2020 Abdominal pain 09/04/2020 Abdominal pain, generalized 09/03/2020 Overview: Added automatically from request for kamilah domingo [id number] SBO (small bowel obstruction) 07/24/2020 Crohn's disease of colon with complication 07/23/2020 Overview: Added automatically from request for kamilah domingo [id number] Sinus tachycardia 08/23/2019 Pneumonia 08/18/2019 Drug-seeking behavior 03/10/2019 Multifocal pneumonia 01/24/2018 Dehydration 01/05/2018 IBS (irritable bowel syndrome) 10/02/2011 Depression 10/02/2011 documented as of this encounter (statuses as of 09/18/2020) Social History Tobacco Use Types Packs/Day Years Used Date Current Every Day Smoker Smokeless Tobacco: Never Used Tobacco Cessation: Counseling Given: Yes Comments: 2-3 cigerette/day Alcohol Use [...] Sign Reading Time Taken Comments Blood Pressure 106/68 09/18/2020 3:45 PM HOCKEY INSTRUCTOR Pulse 101 09/18/2020 3:45 PM HOCKEY INSTRUCTOR Temperature 36.2 C (97.2 F) 09/18/2020 3:45 PM HOCKEY INSTRUCTOR Respiratory Rate 18 09/18/2020 3:45 PM HOCKEY INSTRUCTOR Oxygen Saturation 98% 09/18/2020 3:45 PM HOCKEY INSTRUCTOR Inhaled Oxygen - - Concentration Weight 61.2 kg (135 lb) 09/18/2020 4:59 With one blank et and AM HOCKEY INSTRUCTOR sheet. Height 170.2 cm (5' 7") 09/13/2020 3:47 PM CDT Body Mass Index 21.14 09/13/2020 3:47 PM CDT documented in this encounter Discharge Summaries Radha Aponte, GISELLA - 09/18/2020 12:13 PM CST [facility] Hospitalist Discharge Summary ADMIT DATE: 09/13/2020 DISCHARGE DATE: 09/18/2020 ATTENDING MD: Nate Logan MD PCP: PATIENT DOES NOT HAVE A PCP REASON FOR ADMISSION Abdominal pain CONSULTING SERVICES: Surgery, wound ostomy care PROCEDURES: none HOSPITAL COURSE: Jessica Chakraborty is a 44 year old female with PMH as listed above, admitted to the hospital with: #Abdominal pain, dehydrationversesleaking ostomy Hx Crohn's disease s/pileocecectomy and end ileostomy 07/2020. Colonoscopy at [place]/10 overall normal and was discharged. leakage around ostomy bag with severe skin excoriation,and drainage Multiple CTs per surgeryconsult, nosurgical intervention at this time Pain management,stopped Dilaudid, start hydrocodoneas perhome dose Tolerating GI soft diet Added metamucil, lactobacillus for better stool consistency #Wound/ ostomy consult February Patient needs a 1 piece pouch as it is more flexible and will wear better due to her skin folds at 3 and 9 o'clock. Please use 1/2 of adapt ring around the waferopening, 1/4 of adapt ring at the 3 o'clock fold, and 1/4 of adapt ring at the 9 o'clock fold. Must warm adapt ring in hands before application as it will make it more tacky and will stick better. Is defer to wound care February Moura note #Tachycardia improved Continue Metoprolol 25 mg twice a day #AKIresolved Due to dehydration. Improved with IVF. #Transaminitis Previous US and Ct w/o biliary dilatation Lipase normal. ALT trended down and AST back to normal Repeat US of the abdomen wo cholelithiasis or cholecystitis. No biliary dilationnoted History of substance abuse PHYSICAL EXAM: NAD, lying comfortably Anicteric sclera, oral mucosa clear Good air entry b/l RRR, nl s1s2 Abd soft NT No significant LE, no calf tenderness AAO, no gross deficits Skin warm and dry Bilateral knees inspected and palpated and is not red or swollen SIGNIFICANT LAB/X-RAYS: LABS - reviewed pertinent labs as below: CBC BMP PT/INR WBC (10*3/L) Date Value 09/13/2020 8.87 NA (mmol/L) Date Value 09/16/2020 135 No results found for: PT RBC (10*6/L) Date Value 09/13/2020 4.31 K (mmol/L) Date Value 09/16/2020 4.4 INR (no units) Date Value 07/29/2020 1.0 PLT (10*3/L) Date Value 09/13/2020 371 (H) CALCIUM (mg/dL) Date Value 09/16/2020 8.3 (L) HGB (g/dL) Date Value 09/13/2020 13.1 CL (mmol/L) Date Value 09/16/2020 111 (H) aPTT HCT (%) Date Value 09/13/2020 41.1 BUN (mg/dL) Date Value 09/16/2020 11 APTT Patient (Seconds) Date Value 07/29/2020 30 CREATININE (mg/dL) Date Value 09/16/2020 0.83 IMAGING - reviewed Hospital Encounter on 09/13/20 XR ABDOMEN 2 VW Narrative XR ABDOMEN 2 VW HISTORY: abdominal pain and vomiting COMPARISON: None. TECHNIQUE: AP view of the abdomen and pelvis FINDINGS: Visualized lung bases are clear. Overall, bowel gas pattern is nonobstructive. There is relative paucity of bowel gas within the mid abdomen bilaterally. Small amount of gas is seen within the epigastrium and left upper quadrant (gastric bubble). Loops of bowel (some small bowel and possibly rectosigmoid) project over the pelvis. Right lower quadrant ostomy appliance. Impression Overall, bowel gas pattern is felt to be nonobstructive with multiple loops of bowel projecting over the pelvis. Ostomy appliance projects over the right lower quadrant. ITEMS FOR FOLLOW UP PROVIDER: FUNCTIONAL STATUS: fully ambulatory DISCHARGE CONDITION: good DIET: cardiac ACTIVITY: as tolerated DISCHARGE MEDICATIONS: Current Discharge Medication List CONTINUE these medications which have CHANGED Details HYDROcodone-acetaminophen (NORCO 5) 1 tablet Take 1 tablet by mouth every 6 (six) hours as needed for Pain (scale 4-6). Qty: 14 tablet, Refills: 0 Start date: 09/18/2020 Associated Diagnoses: Abdominal pain, generalized; Nausea and vomiting, intractability of vomiting not specified, unspecified vomiting type; SBO (small bowel obstruction); Crohn's disease of colon with complication; Abdominal pain, unspecified abdominal location; Irritable bowel syndrome, unspecifiedtype; Dehydration; Multifocal pneumonia; Drug-seeking behavior; Pneumonia of both lower lobes due toinfectious organism; Sinus tachycardia proMETHazine (PHENERGAN) 25 mg Take 25 mg by mouth every 6 (six) hours as needed for Nausea and Vomiting (N/V). Qty: 24 tablet, Refills: 0 Start date: 09/18/2020, End date: 10/08/2020 Associated Diagnoses: Generalized abdominal pain CONTINUE these medications which have NOT CHANGED Details acetaminophen (TYLENOL) 650 mg Take 650 mg by mouth every 6 (six) hours. Qty: 50 tablet, Refills: 1 Associated Diagnoses: SBO (small bowel obstruction) ibuprofen (IBU) 600 mg Take 600 mg by mouth every 6 (six) hours. Qty: 40 tablet, Refills: 0 Associated Diagnoses: SBO (small bowel obstruction) methocarbamoL (ROBAXIN) 500 mg Take 500 mg by mouth 4 (four) times daily. Qty: 40 tablet, Refills: 0 Associated Diagnoses: SBO (small bowel obstruction) metoprolol tartrate (LOPRESSOR) 25 mg Take 25 mg by mouth 2 (two) times daily. Qty: 60 tablet, Refills: 0 Associated Diagnoses: Tachycardia ALPRAZolam (XANAX) 2 mg Take 2 mg by mouth 2 (two) times daily. Pantoprazole (PROTONIX) 40 mg Take 40 mg by mouth 2 (two) times daily. STOP taking these medications loperamide (IMODIUM A-D) 2 mg Comments: Reason for Stopping: dextroamphetamine-amphetamine (ADDERALL) 30 mg Comments: Reason for Stopping: DISCHARGE: home self care FOLLOW-UP APPOINTMENT: Future Appointments Provider Department Dept Phone Center 09/27/2020 9:30 AM Precious Chun MD [facility] [phone] [facility] Follow up with primary care provider 1-2 weeks Follow up with your GI provider with in 2 weeks Follow up with your Surgical team for inquiries or stoma reversal Take metamucil daily to keep stool more consistent Empty ostomy bag often Take previous medication as prescribed If pain or symptoms worsen go to nearest ED Please call paging services at [phone] to contact GISELLA Mcbride with any questions. GISELLA Mcbride [place] SKIING INSTRUCTOR was viewed during this stay Hospital discharge time took longer than 35 minutes. EY INSTRUCTOR Associated attestation - Nate Logan MD - 09/18/2020 3:10 PM CSTI personally evaluated and examined the patient on 09/18/2020 and agree with the note as detailed by the nurse practitioner. I actively participated in the decision- making process. In summary, patient was admitted for JULIAN and severe pain around stoma, hx Crohn's s/p ileocecal resection with end-ileostomy 07/2020. Has issues with high ostomy output, dehydration, and frequent leak around ostomy bag causing severe skin excoriation. Much improved with IVF hydration and adding metamucil. Seen by ostomy nurse. Ostomy supplies adjusted for better seal. Seen by surgery during this stay.Ok to discharge today. Rest of plan per below. Nate Logan M.D. 09/18/2020 3:09 PM documented in this encounter Progress Notes Tawanna Bustillos LMSW - 09/18/2020 12:28 PM CSTSummary: Inpatient Scheduling NURSERY RN spoke with Jessica Chakraborty prior to discharge to assist with scheduling hospital followup appointments. Pt was agreeable to assistance. Pt reports that she currently does not have a PCP and would like to establish. Prior to scheduling, NURSERY RN discussed self pay rates for PCP and Speciality clinics. Pt reports that at this time she would not be able to afford that and has trouble with transportation. NURSERY RN discussed with patient the sliding scale clinic options available. Pt requests information on [facility] clinic. NURSERY RN to provide. Will document in referrals. Tawanna Bustillos LMSW [employer]ppersmith Helper - [facility] EY INSTRUCTOR Radha Aponte FNP - 09/17/2020 12:12 PM CST [facility] Hospitalist Progress Note SUBJECTIVE: Patient still complaining of some stoma pain, patient states her pain is worse now than it was when she had surgery. CURRENT MEDICATIONS - reviewed. Current Facility-Administered Medications Medication Dose Route Frequency Last Rate Last Dose HYDROcodone-acetaminophen (NORCO 5) 5-325 mg tablet 2 tablet 2 tablet Oral Q6HPRN 2 tablet at111/17/19 0538 proMETHazine (PHENERGAN) 25 mg in NaCl 0.9% (NS) 50 mL IV piggyback 25 mg IV Piggyback [id number] mg at 09/17/20 0539 diphenhydrAMINE (BENADRYL) injection 12.5 mg 12.5 mg Slow IV Push Q6HPRN 12.5 mg at 09/17/20 0601 lactobacillus acidophilus (ACIDOPHILLUS) 25 million cell -100 mg captab 1 tablet 1 tablet Oral TID 1 tablet at 09/17/20 0922 psyllium (METAMUCIL FIBER SINGLES) 3.4 gram packet 1 Packet 1 Packet Oral BID 1 Packet at 09/17/20921 acetaminophen (TYLENOL) tablet 650 mg 650 mg Oral Q6HPRN acetaminophen (TYLENOL) tablet 650 mg 650 mg Oral Q6H 650 mg at 09/17/20 0528 ALPRAZolam (XANAX) tablet 0.5 mg 0.5 mg Oral TIDPRN 0.5 mg at 09/17/20921 heparin (porcine) injection 5,000 Units 5,000 Units Subcutaneous Q8H 5,000 Units at 09/17/20 0528 metoprolol tartrate (LOPRESSOR) tablet 25 mg 25 mg Oral BID 25 mg at 09/17/20 0922 pantoprazole (PROTONIX) EC tablet 40 mg 40 mg Oral DAILY 40 mg at 09/17/20 0922 PHYSICAL EXAM: BP 106/59 | Pulse 111 | Temp 36.8 C (98.3 F) (Temporal Artery) | Resp 18 | Ht 1.702 m (5' 7") | Wt 58.1 kg (128 lb) | SpO2 100% | BMI 20.05 kg/m General: NAD HEENT: Anicteric sclerae, NCAT Lungs: CTAB Cardio: RRR, strong symmetric pulses Abdomen: Soft, tender, ileostomy, some excoriation around the ostomy Genitourinary: No lesions Musculoskeletal: Normal muscle mass, no synovitis Skin: No rash or lesions, normal turgot Neuro: AAOx3, no focal deficits Psych: Normal affect LABS/IMAGING - reviewed, pertinent results as below: CBC BMP PT/INR WBC (10*3/L) Date Value 09/13/2020 8.87 NA (mmol/L) Date Value 09/16/2020 135 No results found for: PT RBC (10*6/L) Date Value 09/13/2020 4.31 K (mmol/L) Date Value 09/16/2020 4.4 INR (no units) Date Value 07/29/2020 1.0 PLT (10*3/L) Date Value 09/13/2020 371 (H) CALCIUM (mg/dL) Date Value 09/16/2020 8.3 (L) HGB (g/dL) Date Value 09/13/2020 13.1 CL (mmol/L) Date Value 09/16/2020 111 (H) aPTT HCT (%) Date Value 09/13/2020 41.1 BUN (mg/dL) Date Value 09/16/2020 11 APTT Patient (Seconds) Date Value 07/29/2020 30 CREATININE (mg/dL) Date Value 09/16/2020 0.83 IMAGING- Hospital Encounter on 09/13/20 XR ABDOMEN 2 VW Narrative XR ABDOMEN 2 VW HISTORY: abdominal pain and vomiting COMPARISON: None. TECHNIQUE: AP view of the abdomen and pelvis FINDINGS: Visualized lung bases are clear. Overall, bowel gas pattern is nonobstructive. There is relative paucity of bowel gas within the mid abdomen bilaterally. Small amount of gas is seen within the epigastrium and left upper quadrant (gastric bubble). Loops of bowel (some small bowel and possibly rectosigmoid) project over the pelvis. Right lower quadrant ostomy appliance. Impression Overall, bowel gas pattern is felt to be nonobstructive with multiple loops of bowel projecting over the pelvis. Ostomy appliance projects over the right lower quadrant. ASSESSMENT/PLAN Jessica Chakraborty is a 44 year old female with PMH as listed above, admitted to the hospital with: #Abdominal pain, dehydration verses leaking ostomy Hx Crohn's disease s/pileocecectomy and end ileostomy 07/2020. Colonoscopy at [facility]09/10 overall normal and was discharged. leakage around ostomy bag with severe skin excoriation, and drainage Multiple CTs per surgery consult, no surgical intervention at this time Pain management, will taper off Dilaudid, start hydrocodone as per home dose Tolerating GI soft diet Added metamucil, lactobacillus for better stool consistency #Wound/ ostomy consult February Zeny Patient needs a 1 piece pouch as it is more flexible and willwear better due to her skin folds at 3 and 9 o'clock. Please use 1/2 of adapt ring around the wafer opening, 1/4 of adapt ring at the 3 o'clock fold, and 1/4 of adapt ring at the 9 o'clock fold. Must warm adapt ring in hands before application as it will make it more tacky and will stick better. Is defer to wound care Naima Zeny note #Tachycardia likely due to pain Continue Metoprolol 25 mg twice a day #JULIAN resolved Due to dehydration. Improved with IVF. #Transaminitis Previous US and Ct w/o biliary dilatation Lipase normal. ALT trended down and AST back to normal Repeat US of the abdomen wo cholelithiasis or cholecystitis. No biliary dilationnoted History of substance abuse Prophylaxis: DVT- heparin Stress Ulcer: pantoprazole Code Status: addressed: Disposition: home tomorrow [place] SKIING INSTRUCTOR was viewed during this stay GISELLA Mcbride EY INSTRUCTOR Associated attestation - Nate Logan MD - 09/17/2020 5:42 PM CSTI personally evaluated and examined the patient on 09/17/2020 and agree with the note as detailed by the nurse practitioner. I actively participated in the decision- making process. In summary, patient was admitted for JULIAN and severe pain around stoma, hx Crohn's s/p ileocecal resection with end-ileostomy 07/2020. Has issues with high ostomy output, dehydration, and frequent leak around ostomy bag causing severe skin excoriation. Much improved with IVF hydration and adding metamucil. Seen by ostomy nurse today. Ostomy supplies to be adjusted for better seal. Possible d/c tomorrow. Rest of plan per below. Nate Logan M.D. 09/17/2020 5:39 PM Radha Aponte FNP - 09/16/2020 2:11 PM CST [facility] Hospitalist Progress Note SUBJECTIVE: Patient seen at bedside complaining of abdominal pain, around the ileostomy site with drainage noted CURRENT MEDICATIONS - reviewed. Current Facility-Administered Medications Medication Dose Route Frequency Last Rate Last Dose HYDROcodone-acetaminophen (NORCO 5) 5-325 mg tablet 2 tablet 2 tablet Oral Q6HPRN proMETHazine (PHENERGAN) 25 mg in NaCl 0.9% (NS) 50 mL IV piggyback 25 mg IV Piggyback [id number] mg at 09/16/20 1309 diphenhydrAMINE (BENADRYL) injection 12.5 mg 12.5 mg Slow IV Push Q6HPRN 12.5 mg at 09/14/20 1554 lactobacillus acidophilus (ACIDOPHILLUS) 25 million cell -100 mg captab 1 tablet 1 tablet Oral TID 1 tablet at 09/16/20 1309 psyllium (METAMUCIL FIBER SINGLES) 3.4 gram packet 1 Packet 1 Packet Oral BID 1 Packet at 09/16/20 0815 acetaminophen (TYLENOL) tablet 650 mg 650 mg Oral Q6HPRN acetaminophen (TYLENOL) tablet 650 mg 650 mg Oral Q6H 650 mg at 09/16/20 1309 ALPRAZolam (XANAX) tablet 0.5 mg 0.5 mg Oral TIDPRN 0.5 mg at 09/16/20 0815 heparin (porcine) injection 5,000 Units 5,000 Units Subcutaneous Q8H 5,000 Units at 09/16/20 0603 metoprolol tartrate (LOPRESSOR) tablet 25 mg 25 mg Oral BID 25 mg at 09/16/20 0815 pantoprazole (PROTONIX) EC tablet 40 mg 40 mg Oral DAILY 40 mg at 09/16/20 0815 PHYSICAL EXAM: BP 103/70 | Pulse 90 | Temp 35.7 C (96.2 F) (Temporal Artery) | Resp 18 | Ht 1.702 m (5' 7") | Wt 58.1 kg (128 lb) | SpO2 100% | BMI 20.05 kg/m General: NAD HEENT: Anicteric sclerae, NCAT Lungs: CTAB Cardio: RRR, strong symmetric pulses Abdomen: Soft, right ileostomy, skin excoriated around the ileostomy Genitourinary: No lesions Musculoskeletal: Normal muscle mass, no synovitis Skin: See above, normal turgot Neuro: AAOx3, no focal deficits Psych: Normal affect LABS/IMAGING - reviewed, pertinent results as below: CBC BMP PT/INR WBC (10*3/L) Date Value 09/13/2020 8.87 NA (mmol/L) Date Value 09/16/2020 135 No results found for: PT RBC (10*6/L) Date Value 09/13/2020 4.31 K (mmol/L) Date Value 09/16/2020 4.4 INR (no units) Date Value 07/29/2020 1.0 PLT (10*3/L) Date Value 09/13/2020 371 (H) CALCIUM (mg/dL) Date Value 09/16/2020 8.3 (L) HGB (g/dL) Date Value 09/13/2020 13.1 CL (mmol/L) Date Value 09/16/2020 111 (H) aPTT HCT (%) Date Value 09/13/2020 41.1 BUN (mg/dL) Date Value 09/16/2020 11 APTT Patient (Seconds) Date Value 07/29/2020 30 CREATININE (mg/dL) Date Value 09/16/2020 0.83 IMAGING- Hospital Encounter on 09/13/20 XR ABDOMEN 2 VW Narrative XR ABDOMEN 2 VW HISTORY: abdominal pain and vomiting COMPARISON: None. TECHNIQUE: AP view of the abdomen and pelvis FINDINGS: Visualized lung bases are clear. Overall, bowel gas pattern is nonobstructive. There is relative paucity of bowel gas within the mid abdomen bilaterally. Small amount of gas is seen within the epigastrium and left upper quadrant (gastric bubble). Loops of bowel (some small bowel and possibly rectosigmoid) project over the pelvis. Right lower quadrant ostomy appliance. Impression Overall, bowel gas pattern is felt to be nonobstructive with multiple loops of bowel projecting over the pelvis. Ostomy appliance projects over the right lower quadrant. ASSESSMENT/PLAN Jessica Chakraborty is a 44 year old female with PMH as listed above, admitted to the hospital with: Abdominal pain, dehydration verses leaking ostomy Hx Crohn's disease s/p ileocecectomy and end ileostomy 07/2020. Colonoscopy at [place] 09/10 overall normal and was discharged. leakage around ostomy bag with severe skin excoriation, and drainage Multiple CTs per surgery consult, no surgical intervention at this time Wound consult tomorrow February [facility] Pain management, will taper off Dilaudid, start hydrocodone as per home dose Tolerating GI soft diet Added metamucil, lactobacillus for better stool consistency JULIAN resolved Due to dehydration. Improved with IVF. Transaminitis Previous US and Ct w/o biliary dilatation Lipase normal. ALT trended down and AST back to normal Repeat US of the abdomen wo cholelithiasis or cholecystitis. No biliary dilation noted History of substance abuse Prophylaxis: DVT- heparin Stress Ulcer: pantoprazole Code Status: addressed: Full code Disposition: Home after wound consult tomorrow [place] SKIING INSTRUCTOR was viewed during this stay GISELLA Mcbride EY INSTRUCTOR Associated attestation - Roby Jean MD - 09/16/2020 4:13 PM CSTI have independently seen and evaluated this patient. I agree with the note below including physicalexam and plan. In summary, patient is admitted for JULIAN and severe pain around stoma, hx Crohn's s/p ileocecal resection with end-ileostomy 07/2020. Has issues with high ostomy output, dehydration, and frequent leak around ostomy bag causing severe skin excoriation. Much improved with IVF hydration and adding metamucil. Ostomy supplies to be adjusted for better seal. Had recent MRI at [place] that was negative for SBO as well as colonoscopy that was unremarkable. Tolerating GI soft. Ostomy Nurse to see patient tomorrow am. Rest of plan per below. Roby Jean MD - 09/15/2020 12:02 PM CST [facility] Hospitalist Progress Note SUBJECTIVE: Patient was seen eating at the bedside. Still complaining of severe pain to her abdomen. Denies nausea CURRENT MEDICATIONS - reviewed. Current Facility-Administered Medications Medication Dose Route Frequency Last Rate Last Dose HYDROcodone-acetaminophen (NORCO 5) 5-325 mg tablet 1 tablet 1 tablet Oral Q4HPRN 1 tablet at111/15/19 1127 HYDROmorphOne (DILAUDID) injection 1 mg 1 mg Slow IV Push Q4HPRN 1 mg at 09/15/20 0900 diphenhydrAMINE (BENADRYL) injection 12.5 mg 12.5 mg Slow IV Push Q6HPRN 12.5 mg at 09/14/20 1554 lactobacillus acidophilus (ACIDOPHILLUS) 25 million cell -100 mg captab 1 tablet 1 tablet Oral TID 1 tablet at 09/15/20 0859 psyllium (METAMUCIL FIBER SINGLES) 3.4 gram packet 1 Packet 1 Packet Oral BID 1 Packet at 09/15/20 0859 acetaminophen (TYLENOL) tablet 650 mg 650 mg Oral Q6HPRN acetaminophen (TYLENOL) tablet 650 mg 650 mg Oral Q6H 650 mg at 09/15/20 1128 ALPRAZolam (XANAX) tablet 0.5 mg 0.5 mg Oral TIDPRN 0.5 mg at 09/15/20 1127 heparin (porcine) injection 5,000 Units 5,000 Units Subcutaneous Q8H 5,000 Units at 09/15/20 0723 metoprolol tartrate (LOPRESSOR) tablet 25 mg 25 mg Oral BID 25 mg at 09/15/20 0905 NaCl 0.9% (NS) IV infusion 1,000 mL 1,000 mL IV Infusion CONTINUOUS 125 mL/hr at 09/15/20 0908 1,000 mL at 09/15/20 0908 pantoprazole (PROTONIX) EC tablet 40 mg 40 mg Oral DAILY 40 mg at 09/15/20 0859 proMETHazine (PHENERGAN) 12.5 mg in NaCl 0.9% (NS) 50 mL IV piggyback 12.5 mg IV Piggyback Q4HPRN 12.5 mg at 09/15/20 0800 PHYSICAL EXAM: BP 110/67 | Pulse 94 | Temp 36.5 C (97.7 F) (Tympanic) | Resp 20 | Ht 5' 7" (1.702 m) | Wt 128 lb (58.1 kg) | SpO2 97% | BMI 20.05 kg/m General: NAD HEENT: Anicteric sclerae, NCAT Lungs: CTAB Cardio: RRR, strong symmetric pulses Abdomen: Soft,tender, ileostomy in place with surrounding erythema Genitourinary: No lesions Musculoskeletal: Normal muscle mass, no synovitis Skin: No rash or lesions, normal turgot Neuro: AAOx3, no focal deficits Psych: Normal affect LABS/IMAGING - reviewed, pertinent results as below: CBC BMP PT/INR WBC (10*3/L) Date Value 09/13/2020 8.87 NA (mmol/L) Date Value 09/15/2020 135 No results found for: PT RBC (10*6/L) Date Value 09/13/2020 4.31 K (mmol/L) Date Value 09/15/2020 3.9 INR (no units) Date Value 07/29/2020 1.0 PLT (10*3/L) Date Value 09/13/2020 371 (H) CALCIUM (mg/dL) Date Value 09/15/2020 9.2 HGB (g/dL) Date Value 09/13/2020 13.1 CL (mmol/L) Date Value 09/15/2020 104 aPTT HCT (%) Date Value 09/13/2020 41.1 BUN (mg/dL) Date Value 09/15/2020 15 APTT Patient (Seconds) Date Value 07/29/2020 30 CREATININE (mg/dL) Date Value 09/15/2020 0.91 IMAGING- Hospital Encounter on 09/13/20 XR ABDOMEN 2 VW Narrative XR ABDOMEN 2 VW HISTORY: abdominal pain and vomiting COMPARISON: None. TECHNIQUE: AP view of the abdomen and pelvis FINDINGS: Visualized lung bases are clear. Overall, bowel gas pattern is nonobstructive. There is relative paucity of bowel gas within the mid abdomen bilaterally. Small amount of gas is seen within the epigastrium and left upper quadrant (gastric bubble). Loops of bowel (some small bowel and possibly rectosigmoid) project over the pelvis. Right lower quadrant ostomy appliance. Impression Overall, bowel gas pattern is felt to be nonobstructive with multiple loops of bowel projecting over the pelvis. Ostomy appliance projects over the right lower quadrant. ASSESSMENT/PLAN Jessica Chakraborty is a 44 year old female with PMH as listed above, admitted to the hospital with: Abdominal pain, dehydration Hx Crohn's disease s/p ileocecectomy and end ileostomy 07/2020. Underwent colonoscopy at [facility]/10 overall normal and was discharged. Since discharge patient complains of leakage around ostomy bag with severe skin excoriation causing her pain Multiple CTs in the last month, will hold off on repeat imaging Per surgery Dr. Salazar no surgical intervention required at this time. Patient needs close f/u with Ostomy nurse. Will touch base with CM tomorrow to ensure close f/u. Tolerating GI soft diet Added metamucil, lactobacillus for better stool consistency JULIAN Due to dehydration. Improved with IVF. Transaminitis Previous US and Ct w/o biliary dilatation Lipase normal. ALT trended down and AST back to normal Repeat US of the abdomen wo cholelithiasis or cholecystitis. No biliary dilation noted History of substance abuse Prophylaxis: DVT- heparin DQ Stress Ulcer: continue pantoprazole Dispo: Home tomorrow Hiral Downs AGACNP - 09/14/2020 4:49 PM CDT [facility] Hospitalist Progress Note SUBJECTIVE: Patient was seen eating at the bedside. Still complaining of severe pain to her abdomen. Denies nausea CURRENT MEDICATIONS - reviewed. Current Facility-Administered Medications Medication Dose Route Frequency Last Rate Last Dose diphenhydrAMINE (BENADRYL) injection 12.5 mg 12.5 mg Slow IV Push Q6HPRN 12.5 mg at 09/14/20 1554 HYDROcodone-acetaminophen (NORCO) 10-325 mg tablet 1 tablet 1 tablet Oral Q6HPRN 1 tablet at 09/14/20 0950 lactobacillus acidophilus (ACIDOPHILLUS) 25 million cell -100 mg captab 1 tablet 1 tablet Oral TID 1 tablet at 09/14/20 1450 psyllium (METAMUCIL FIBER SINGLES) 3.4 gram packet 1 Packet 1 Packet Oral BID 1 Packet at 09/14/20 1451 acetaminophen (TYLENOL) tablet 650 mg 650 mg Oral Q6HPRN acetaminophen (TYLENOL) tablet 650 mg 650 mg Oral Q6H 650 mg at 09/14/20 1216 ALPRAZolam (XANAX) tablet 0.5 mg 0.5 mg Oral TIDPRN 0.5 mg at 09/14/20 0950 heparin (porcine) injection 5,000 Units 5,000 Units Subcutaneous Q8H 5,000 Units at 09/14/20 1451 metoprolol tartrate (LOPRESSOR) tablet 25 mg 25 mg Oral BID Stopped at 09/14/20 0929 morpHINE injection 4 mg 4 mg Slow IV Push Q4HPRN 4 mg at 09/14/20 1553 NaCl 0.9% (NS) IV infusion 1,000 mL 1,000 mL IV Infusion CONTINUOUS 125 mL/hr at 09/14/20 0956 1,000 mL at 09/14/20 0956 pantoprazole (PROTONIX) EC tablet 40 mg 40 mg Oral DAILY 40 mg at 09/14/20 0929 proMETHazine (PHENERGAN) 12.5 mg in NaCl 0.9% (NS) 50 mL IV piggyback 12.5 mg IV Piggyback Q4HPRN 12.5 mg at 09/14/20 1118 PHYSICAL EXAM: BP 102/70 | Pulse 91 | Temp 36.2 C (97.2 F) (Temporal Artery) | Resp 18 | Ht 1.702 m (5' 7") | Wt 57.6 kg (127 lb) | SpO2 100% | BMI 19.89 kg/m General: NAD HEENT: Anicteric sclerae, NCAT Lungs: CTAB Cardio: RRR, strong symmetric pulses Abdomen: Soft,tender, ileostomy in place with surrounding erythema Genitourinary: No lesions Musculoskeletal: Normal muscle mass, no synovitis Skin: No rash or lesions, normal turgot Neuro: AAOx3, no focal deficits Psych: Normal affect LABS/IMAGING - reviewed, pertinent results as below: CBC BMP PT/INR WBC (10*3/L) Date Value 09/13/2020 8.87 NA (mmol/L) Date Value 09/14/2020 136 No results found for: PT RBC (10*6/L) Date Value 09/13/2020 4.31 K (mmol/L) Date Value 09/14/2020 3.9 INR (no units) Date Value 07/29/2020 1.0 PLT (10*3/L) Date Value 09/13/2020 371 (H) CALCIUM (mg/dL) Date Value 09/14/2020 8.9 HGB (g/dL) Date Value 09/13/2020 13.1 CL (mmol/L) Date Value 09/14/2020 104 aPTT HCT (%) Date Value 09/13/2020 41.1 BUN (mg/dL) Date Value 09/14/2020 17 APTT Patient (Seconds) Date Value 07/29/2020 30 CREATININE (mg/dL) Date Value 09/14/2020 0.84 IMAGING- Hospital Encounter on 09/13/20 XR ABDOMEN 2 VW Narrative XR ABDOMEN 2 VW HISTORY: abdominal pain and vomiting COMPARISON: None. TECHNIQUE: AP view of the abdomen and pelvis FINDINGS: Visualized lung bases are clear. Overall, bowel gas pattern is nonobstructive. There is relative paucity of bowel gas within the mid abdomen bilaterally. Small amount of gas is seen within the epigastrium and left upper quadrant (gastric bubble). Loops of bowel (some small bowel and possibly rectosigmoid) project over the pelvis. Right lower quadrant ostomy appliance. Impression Overall, bowel gas pattern is felt to be nonobstructive with multiple loops of bowel projecting over the pelvis. Ostomy appliance projects over the right lower quadrant. ASSESSMENT/PLAN Jessica Chakraborty is a 44 year old female with PMH as listed above, admitted to the hospital with: Severe abdominal pain / Nausea /vomiting in setting of Recent SBO due to adhesions. s/p ileocecectomy and end ileostomy 07/2020 [facility] s/p colonoscopy 09/10/20 At [facility] Discharge from [facility] on 09/10/20 Prior Pathology results showed normal inflammatory markers S/p CT Abdomen / pelvis MRI /US Still complaining of abdominal pain. Per surgery Dr. Salazar no surgical intervention required at this time Continue clear liquid and advance diet as tolerated Pain control and Antiemetics Prn No s/s of infection. Recommend out patient Follow up with GI and surgery Prerenal JULIAN. Resolved Transaminitis Previous US and Ct w/o biliary dilatation Lipase normal. ALT trended down and AST back to normal Repeat US of the abdomen wo cholelithiasis or cholecystitis. No biliary dilation noted Stoma erythema sec to excessive ileostomy output Add lactobacillus and psyllium Fiber Bid Ostomy care PRN by Nursing Monitor for worsening surrounding erythema Teach patient how to properly change stoma bag to avoid subsequent leaks Consult learning program manager for assistance with Discharge planning History of substance abuse Patient is still displaying drug-seeking behavior DC IV morphine. Continue hydrocodone for severe pain Prophylaxis: DVT- heparin subcutaneous Stress Ulcer: continue pantoprazole Raul SKIING INSTRUCTOR was viewed during this stay LEATHA Garcia Associated attestation - Roby Jean MD - 09/14/2020 6:03 PM CDTI have independently seen and evaluated this patient. I agree with the note below including physicalexam and plan. In summary, patient is admitted for JULIAN and severe pain around stoma, hx Crohn's s/p ileocecal resection with end-ileostomy 07/2020. Has issues with high ostomy output, dehydration, and frequent leak around ostomy bag causing severe skin excoriation. Continue IV fluid hydration. Ostomy supplies to be adjusted for better seal. Had recent MRI at [place] that was negative for SBO as well as colonoscopy that was unremarkable. Add metamucil, advance diet to GI soft. Needs close follow-up with Ostomy Nurse as outpatient. Rest of plan per below. Prema Hughes RN - 09/14/2020 3:10 PM TAITI, Roby Jean MD, after reviewing this case with the Senior Data Quality Analyst, I concur this case is appropriate for inpatient admission. The change to inpatient admission is based on the level of care this patient is receiving, medical necessity, risks associated and the expected duration of stay. The inpatient admission order has been entered. Prema Hughes RN, BSN, CCRN Utilization Review Nurse [facility] Associated attestation - Roby Jean MD - 09/14/2020 5:02 PM CDTattested Antonio Avina RN - 09/13/2020 3:39 PM CDT Care Management Social Functional Assessment Patient Name: Jessica Chakraborty Age: [age] year old Sex: female Patient's Previous Admission Date at [facility]: 09/05/2020 Current diagnosis and co-morbidities: JULIAN Dehydration Readmission Questions: Was patient discharged from any acute care hospital within the last 30 days: No Were all questions regarding previous illness/diagnosis answered prior to discharge: Yes Did you have any difficulties with your discharge instructions: No Any difficulties after discharge with medications: No Any difficulties after discharge with transportation: No Any difficulties after discharge with physical conditions, support, or other limitations?: No Did patient refuse services that were recommended on the previous admission: No Was patient non-compliant with the previously recommended treatment: No If admitted from the ED did you call your primary MD or place a sick call/request with your provider?: N/A Social Functional Assessment: Primary language spoken/preferred: Hungarian Mental Status: Alert & Oriented to Person,Place & Time Information given by: Self Patient's support system: Parent Name and number of support system: Uziel Garcia [phone] Primary Roving Department End Finder: Self MPOA: Same as support system Living Arrangement: Home Address of living arrangement : [address] [place] [address] Persons living in home: Same as support system Barriers to returning home: None Baseline functional status- ambulation: Requires minimal to moderate assistance Functional status-baseline personal care: Requires minimal to moderate assistance Baseline functional status- driving: Requires minimal to moderate assistance Baseline functional status- grocery shopping: Requires minimal to moderate assistance Functional status-baseline housekeeping: Requires minimal to moderate assistance Functional status-baseline meal prep: Requires minimal to moderate assistance Current functional status same as prior: Yes Do you have a PCP?: No Refered to: [facility] Home Health Care Agency: No Provider Services: No DME Company: No Equipment: Walker Hemodialysis: No Community resources utilized: (Pt in process of applying for [email or web address]. Pt provided / [facility] Resource Sheet) Funding Resources: Self Pay Prescription coverage plan: Self Pay Pharmacy where meds are filled: ([facility]) Anticipated services prior to disharge: Continue Medical Eval Expected mode of discharge transportation: Same as support system Additional info required for discharge planning: Pending medical evaluation Recommended discharge plan: Home SFA Complete: Social Functional Assessment complete: Yes Alcohol Use Screening (AUDIT-C) How often do you have a drink containing alcohol?: Monthly or less SCORE: 1 How many drinks containing alcohol do you have on a typical day when you are drinking?: 1 or 2 drinks How often do you have six or more drinks on one occasion?: Never Total Score (AUDIT-C): 1 Did patient elect to have resources provided: No Role of Care Management explained. Yes Any issues or concerns with obtaining/affording your medications at home: no. Are you or your support system able to coal picker medications at discharge: yes. Describe: Antonio Avina RN, BSN [facility] ADC Senior Data Quality Analyst [phone] . documented in this encounter H&P Notes Hiral Torres AGACNP - 09/13/2020 3:13 PM CDT Date of Service: 09/13/2020 CHIEF COMPLAINT: Abdominal pain, nausea, vomiting HISTORY OF PRESENT ILLNESS Jessica Chakraborty is a 44 year old female with past medical history is significant for Crohn disease, ADHD, IBS, multiple drug allergies, drug-seeking behavior who presented status post small bowel obstruction and creation and ileostomy 2 months ago at [facility] on 07/25/20, s/p colonoscopy at [facility] on 09/10/20 as well as discharge on the same day who presented to the ED with complaints of abdominal pain, diarrhea, vomiting, and increased ostomy output 2 days. Patient reports that she vomited 5 and stated she is not able to keep food down. Pain is rated as 8 out of 10 anddescribed as shocking,stabbing in nature and nonradiating. She also reports redness around the stoma due to leaking from unstable ileostomy bag. She denies other associated symptoms such as fever, chills,chest pain, dysuria, urinary retention, hematuria and bloody stools PAST MEDICAL HISTORY Past Medical History: Diagnosis Date Crohn disease Drug-seeking behavior 03/04/2019 IBS (irritable bowel syndrome) PAST SURGICAL HISTORY Past Surgical History: Procedure Laterality Date SECTION X 2 FLEXIBLE SIGMOIDOSCOPY (SHX) N/A 09/10/2020 Surgeon: Mariana Allen MD; Location: [facility] OR Location HYSTERECTOMY 2010 ILEOCECECTOMY N/A 07/25/2020 Surgeon: Precious Chun MD; Location: [facility] ILEOSTOMY N/A 07/25/2020 Surgeon: Precious Chun MD; Location: [facility] [place] TUBAL LIGATION 1996 ALLERGIES Allergies Allergen Reactions Bentyl [Dicyclomine] Hives and Swelling Caffeine Hives and Swelling Fentanyl Hcl Hives Reglan [Metoclopramide Hcl] Itching Sulfa (Sulfonamide Antibiotics) Nausea and/or Vomiting Talwin [Pentazocine Lactate] Hives and Swelling Toradol [Ketorolac Tromethamine] Hives Tramadol Itching and Swelling Zofran [Ondansetron Hcl (Pf)] Itching Morphine Itching Reports she tolerates Morphine with benadryl MEDICATIONS Current home medication list reviewed: Current Discharge Medication List STOP taking these medications HYDROcodone-acetaminophen 5-325 mg tablet Comments: Reason for Stopping: proMETHazine 25 mg tablet Comments: Reason for Stopping: acetaminophen 325 mg tablet Comments: Reason for Stopping: ibuprofen 600 mg tablet Comments: Reason for Stopping: loperamide 2 mg capsule Comments: Reason for Stopping: methocarbamoL 500 mg tablet Comments: Reason for Stopping: metoprolol tartrate 25 mg tablet Comments: Reason for Stopping: proMETHazine 25 mg tablet Comments: Reason for Stopping: ALPRAZolam (XANAX) 2 mg tablet Comments: Reason for Stopping: dextroamphetamine-amphetamine (ADDERALL) 30 mg tablet Comments: Reason for Stopping: Pantoprazole (PROTONIX) 40 mg delayed-release suspension Comments: Reason for Stopping: FAMILY HISTORY No family history on file. 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 Social Needs Financial resource strain: Not hard [...] file Gets together: Not on file Attends yarsani service: Not on file Active member of [...] Narrative Not on file REVIEW OF SYSTEMS 12 point review of system negative except noted in HPI PHYSICAL EXAMINATION BP 104/75 | Pulse 109 | Temp 36.3 C (97.3 F) (Temporal Artery) | Resp 20 | Ht 1.702 m (5' 7") | Wt 54.4 kg (120 lb) | SpO2 97% | BMI 18.79 kg/m PHYSICAL EXAM: General:No acute distress HEENT: Normocephalic LUNG; Clear to auscultation without wheezes or crackles Cardiovascular:RRR, S1 and S2 audible.pulses palpable ABD: Abdomen non distend, stoma in place to right abdomen with surrounding erythema. Pain noted with palpation. Distant bowl sound. Stoma in place Genitourinary: no distention, no dysuria or hematuria EXTM: without Clubbing or edema SKIN: erythema around the storma Neuro: Alert and oriented, w/o focal deficits Psych: Normal affect LABS - reviewed pertinent labs as below: CBC BMP PT/INR WBC (10*3/L) Date Value 09/13/2020 8.87 NA (mmol/L) Date Value 09/13/2020 139 No results found for: PT RBC (10*6/L) Date Value 09/13/2020 4.31 K (mmol/L) Date Value 09/13/2020 4.5 INR (no units) Date Value 07/29/2020 1.0 PLT (10*3/L) Date Value 09/13/2020 371 (H) CALCIUM (mg/dL) Date Value 09/13/2020 10.6 HGB (g/dL) Date Value 09/13/2020 13.1 CL (mmol/L) Date Value 09/13/2020 99 aPTT HCT (%) Date Value 09/13/2020 41.1 BUN (mg/dL) Date Value 09/13/2020 14 APTT Patient (Seconds) Date Value 07/29/2020 30 CREATININE (mg/dL) Date Value 09/13/2020 1.31 (H) IMAGING - reviewed, pertinent results as below: Hospital Encounter on 09/13/20 XR ABDOMEN 2 VW Narrative XR ABDOMEN 2 VW HISTORY: abdominal pain and vomiting COMPARISON: None. TECHNIQUE: AP view of the abdomen and pelvis FINDINGS: Visualized lung bases are clear. Overall, bowel gas pattern is nonobstructive. There is relative paucity of bowel gas within the mid abdomen bilaterally. Small amount of gas is seen within the epigastrium and left upper quadrant (gastric bubble). Loops of bowel (some small bowel and possibly rectosigmoid) project over the pelvis. Right lower quadrant ostomy appliance. Impression Overall, bowel gas pattern is felt to be nonobstructive with multiple loops of bowel projecting over the pelvis. Ostomy appliance projects over the right lower quadrant. ASSESSMENT/PLAN Severe abdominal pain , Nausea , vomiting and PO intolerance in the setting of hx of SBO due adhesions s/p ileocecectomy and end ileostomy 07/2020 s/p colonoscopy 09/10/20 Recently discharge from [facility] on 09/10/20 Prior Pathology results showed normal inflammatory markers S/p CT Abdomen / pelvis MRI /US continue Pain control and Antiemetics Prn No s/s of infection. Will hold off antibiotic for now Recommend follow up with GI out patient as well as surgery Prerenal JULIAN. Due to dehydration form diarrhea, vomiting and inreased ileostomy output Status post IV bolus in the ED continue maintenance dose at 125 cc an hour to off set GI loss Monitor for resolution of JULIAN Avoid nephrotoxic drugs Repeat BMP in am Transaminitis AST and ALT slightly elevated above base line. Previous US and Ct w/o biliary dilatation Lipase normal Will monitor for now and repeat Abd US if indicated Stoma erythema Ostomy care PRN by Nursing Monitor for worsening surrounding erythema Teach patient how to properly change stoma bag to avoid subsequent leaks Prophylaxis: DVT- heparin subcutaneous Stress Ulcer: continue pantoprazole Advanced Care Planning (Z71.89) Above assessment and plan discussed at length with patient, patient expressed full understanding. Questions and concerned addressed. Surrogate decision maker: self Level of care expected after discharge: Home Code status:full code Time spent: 10 minutes discussing the advanced care plan Smoking: Denies smoking Disposition Monitor overnight PDMP Reviewed Hiral Torres ACNP Associated attestation - Barbara Turner MD - 09/14/2020 5:53 AM CDTI have independently seen and evaluated this patient. I agree with the note below including physicalexam and plan.Gagan is a 44 year-old female with past medical history including SBP s/p ileostomywho presents to the ED because of nausea, vomiting, or abdominal pain. Patient notes recent malfunction of ileostomy bag with noted seepage of fecal matter. She noted erythema within the past 2 days Physical examination reveals erythema noted surrounding ileostomy area, no pruritis or discharge but some swelling. Treating for a possible infection. Holding imaging at this point due to acute renalfailure. Surgery consult. documented in this encounter Consult Notes Cindy Hinson LBSW - 09/17/2020 1:39 PM CSTAssociated Order(s): CONSULT ELECTRIC TAPE SLITTER-ADULTPt has been provided with community resources and ostomy assistance. Pt was provided with 2-3 weeks worth of supplies per ostomy nurse for discharge. Pt is currently on services with [facility] and has been provided assistance for ostomy supplies. Pt will discharge home today. SHELBY Solitario Coppersmith Helper - Care Management [facility] [phone] [email or web address] RN - 09/17/2020 12:11 PM CSTAssociated Order(s): CONSULT WOUND CARE NURSEOSTOMY NURSE NOTE: S/P: Ileostomy created in July 2020. SURGEON: Dr. Chun REASON FOR VISIT: Leaking pouches. ASSESSMENT: Right lower quadrant; stoma is reddish, moist and soft, with adequate protrusion, is patent of brown liquid stool, measures 32mm in diameter. Mucocutaneous junction intact and peristomalskin is with scattered open areas- much of which has healed and only few small areas remain open, superficial, pink, and moist. Skin folds at 3 and 9 o'clock. Assessed patient's knowledge of caring for stoma; patient has good understanding of care and had been instructed on how to cut wafer appropriately as she was originally cutting the wafer too large. Patient states her stool has consistently been very watery and was advised to take immodium which was not working well for her. She was placed on Metamucil today, which appears to be helping. Interactive appliance change was done and patient completed tasks independently and correctly. Education provided: [x] Patient has been instructed how/when to [...] and treatment for [x] Patient was provided written instructions over above education. Folder at bedside. Pt will need prescription for the following with diagnostic code Z93.2 Status Ileostomy with refills to last life of ostomy - Change pouch every 3-4 days until suture line is healed then continue according to wear time up to 7 days. Supplies for bedside and home: - 1 piece extended wear pouch (materials management #[id number]) [place] #[id number]; 2 boxes/month -Adhesive remover (materials management #[id number]); 1/month -Adapt powder (materials management #[id number]) [place] #[id number] 1/month -Skin preps (materials management #[id number]) 1/month -Adapt rings (materials management #[id number]) [place] #6719 2 boxes/month Patient states that her mother told her she had received a home supply delivery yesterday. Supplies to be ordered for home: Plan: -Please empty pouch when 1/3-1/2 full; this will help prevent leakage of the pouch underneath the wafer. -Please use extended wear pouches for liquid stool or an ileostomy; they will adhere better. -Patient needs a 1 piece pouch as it is more flexible and will wear better due to her skin folds at 3 and 9 o'clock. Please use 1/2 of adapt ring around the wafer opening, 1/4 of adapt ring at the 3 o'clock fold, and 1/4 of adapt ring at the 9 o'clock fold. Must warm adapt ring in hands before application as it will make it more tacky and will stick better. -Please change pouching system anytime the pouch is leaking, even underneath the wafer. If the patient is experiencing itching, burning, or pain underneath the wafer, these could be signs of the pouching leaking underneath the wafer. -Please only use water to clean the vivian-stomal skin or non-moisturizing soap and water. Never use baby wipes or any of the bath or vivian-care wipes-they all have moisturizers in them and will compromise the ability of the pouch to stick to the patient's skin. -Please apply gentle pressure and warmth each time a pouching change is done around the wafer for approximately 1 minute to help the wafer to adhere to the patient's skin. -Please use warm pack (with wash cloth in between pouching system and warm pack) to aide in the adherence of the pouching system if trouble with the pouching system adhering. Leave the warm pack on forapproximately 10 minutes. -Please continue metamucil to the patient's medication list to help thicken stool. Thickened stool will help prevent leaking of the pouch. -Patient given list of resources to call to receive product assistance. -Will continue to follow the patient while in hospital; patient denied a outpatient follow up visit at this time as she states she does not have a way to get there. The patient was given the ostomy nurse office number to call if she has any questions or concerns. Naima Moura, MSN, RN, CWOCN Certified Wound Ostomy Continence Nurse [email or web address] [phone] EY INSTRUCTOR Indy Salazar MD - 09/15/2020 4:40 PM CSTAssociated Order(s): CONSULT GENERAL SURGERYGENERAL SURGERY CONSULT NOTE Asked to evaluate patient's ileostomy. Patient reports having defective bags at home which leaked on her skin. She also reported the barrier past was causing irritation of vivian-ostomy skin and that she was cutting the faceplate diameter for the ostomy larger than the ileostomy. After multiple attempts, the nurses have been able to fir the ostomy appliance around her ileostomy without leaking. I advised the patient that I could make an appointment with Deepika Anthony, enterostomal nurse, on her discharge from the hospital; the patient is refusing appointment at this time as she states she does not have transportation to [place]. On exam the ileotomy has a good pout and is pink, the ostomy appliance fits well around the ileostomy. The appliance was not removed. Recommendations: 1. Continue antacid as an outpatient 2. Continue fiber 3. Enterostomal wound care follow up for continued education on managing an ostomy EY INSTRUCTOR documented in this encounter Nursing Notes Deepika Gipson, RN - 09/16/2020 8:05 AM CSTPatient's colostomy bag changed at shift change this morning. Patient noted that it started leaking again and removed it herself. documented in this encounter ED Notes Esperanza Kessler RN - 09/13/2020 10:34 AM CDTPatient presents as an alert and oriented female that has had pain/inflammation of her colostomy stoma site. Patient states that she has had problems like this in the past. Patient denies any other complaints at this time. Hellen Zhao FNP - 09/13/2020 10:27 AM CDT [facility] Emergency Department Note Patient Name: Jessica Chakraborty Date of : 1975 44 year old female Treatment [facility] Patient Escorted by: Self [9] Mode of Arrival: EMS - [facility] ([place]) [43] EMS Treatment Prior to ED Arrival: none Primary Care Physician: PATIENT DOES NOT HAVE A PCP Chief Complaint: Chief Complaint Patient presents with Other pain/irritation around colostomy stoma Past Medical History: Diagnosis Date Crohn disease Drug-seeking behavior 03/04/2019 IBS (irritable bowel syndrome) Past Surgical History: Procedure Laterality Date SECTION X 2 FLEXIBLE SIGMOIDOSCOPY (SHX) N/A 09/10/2020 Surgeon: Mariana Allen MD; Location: [place] [facility] OR Location HYSTERECTOMY 2010 ILEOCECECTOMY N/A 07/25/2020 Surgeon: Precious Chun MD; Location: [facility] ILEOSTOMY N/A 07/25/2020 Surgeon: Precious Chun MD; Location: [facility] Location TUBAL LIGATION 1996 Past Social History: Tobacco Use Current Every Day Smoker. Smokeless Tobacco: Never used smokeless tobacco. Comments: 2-3 cigerette/day Alcohol Use No. Drug Use No. Sexual Activity Sexually active. Immunizations: Allergies: Allergies Allergen Reactions Bentyl [Dicyclomine] Hives and Swelling Caffeine Hives and Swelling Fentanyl Hcl Hives Reglan [Metoclopramide Hcl] Itching Sulfa (Sulfonamide Antibiotics) Nausea and/or Vomiting Talwin [Pentazocine Lactate] Hives and Swelling Toradol [Ketorolac Tromethamine] Hives Tramadol Itching and Swelling Zofran [Ondansetron Hcl (Pf)] Itching Morphine Itching Reports she tolerates Morphine with benadryl History of Present Illness: Jessica Chakraborty is a 44 year old female with past md hx of possible Chron Disease S/P ileostomy that performed a in July due to SBO that presents to the ED for lower abdominal pain, N/V, and diarrhea for the last 2 days. Reports had a colonoscopy on 09/10, after that had trouble getting her ostomy bag to stay one. States any time she passes gas the bag blows off. As a result has had yellow/mucousy stool leaking on her lower abdomen that has caused redness and pain. Patient had abdominalpad taped around abdomen. States unable to keep colostomy bag in place States she has been having sharp pains in her ostomy and lower abdomen. She reports normal stool volume. Also reports vomiting forthe last day x5, no blood. States she has been unable to keep anything down, including her medicine.Has had some chills but no fever. No chest pain or SOB. [facility] also [facility] a [facility] agofor similar sympoms. History provided by: Patient product management specialist used: No Abdominal Pain Pain location: LUQ, LLQ and suprapubic Pain quality: sharp and stabbing Pain radiates to: Does not radiate Pain severity: Moderate Onset quality: Gradual Duration: 2 days Timing: Constant Progression: Unchanged Chronicity: Chronic Context: eating and previous surgery Context: not alcohol use, not awakening from sleep, not diet changes, not laxative use, not sick contacts, not suspicious food intake and not trauma Relieved by: Nothing Worsened by: Palpation, movement, bowel movements and eating Ineffective treatments: None tried Associated symptoms: anorexia, chills, diarrhea, flatus, nausea and vomiting Associated symptoms: no belching, no chest pain, no constipation, no cough, no dysuria, no fatigue, no fever, no hematemesis, no hematochezia, no hematuria, no melena and no shortness of breath Risk factors: multiple surgeries and recent hospitalization HPI Review of Systems: Review of Systems Constitutional: Positive for appetite change and chills. Negative for fatigue and fever. HENT: Negative. Eyes: Negative. Respiratory: Negative. Negative for cough, chest tightness and shortness of breath. Breasts: Negative. Cardiovascular: Negative. Negative for chest pain. Gastrointestinal: Positive for abdominal pain, anorexia, diarrhea, flatus, nausea and vomiting. Negative for blood in stool, constipation, hematemesis, hematochezia and melena. Genitourinary: Positive for decreased urine volume. Negative for dysuria and hematuria. Musculoskeletal: Negative. Skin: Positive for wound (excoriated lower abdomen). Neurological: Negative. Psychiatric/Behavioral: Negative. All other systems reviewed and are negative. Endocrine: Endocrine negative Physical Exam: ED Triage Vitals [09/13/20 1030] Weight 54.4 kg (120 lb) Actual or estimated Actual Height 1.702 m (5' 7") BP 111/84 Pulse 86 Resp 19 Temp 36.7 C (98 F) Temp source Oral SpO2 98 % Measured on Room air Physical Exam Vitals signs and nursing note reviewed. Constitutional: General: She is not in acute distress. Appearance: Normal appearance. She is well-developed, well-groomed and normal weight. She is ill-appearing. She is not toxic-appearing or diaphoretic. HENT: Head: Normocephalic and atraumatic. Right Ear: External ear normal. Left Ear: External ear normal. Nose: Nose normal. Mouth/Throat: Lips: Lamy. Mouth: Mucous membranes are dry. Pharynx: Oropharynx is clear. Eyes: General: Lids are normal. Extraocular Movements: Extraocular movements intact. Conjunctiva/sclera: Conjunctivae normal. Pupils: Pupils are equal, round, and reactive to light. Neck: Musculoskeletal: Full passive range of motion without pain and normal range of motion. Cardiovascular: Rate and Rhythm: Normal rate and regular rhythm. Pulses: Normal pulses. Heart sounds: Normal heart sounds. No murmur. No gallop. Pulmonary: Effort: Pulmonary effort is normal. No respiratory distress. Breath sounds: Normal breath sounds. No stridor or decreased air movement. No decreased breath sounds, wheezing, rhonchi or rales. Abdominal: General: Abdomen is flat. Bowel sounds are normal. There is no distension. Tenderness: There is abdominal tenderness in the right lower quadrant, suprapubic area and left lower quadrant. There is no right CVA tenderness, left CVA tenderness, guarding or rebound. Negative signs include Padilla's sign and McBurney's sign. Musculoskeletal: Normal range of motion. Skin: Capillary Refill: Capillary refill takes less than 2 seconds. Findings: Erythema present. Neurological: General: No focal deficit present. Mental Status: She is alert and oriented to person, place, and time. GCS: GCS eye subscore is 4. GCS verbal subscore is 5. GCS motor subscore is 6. Cranial Nerves: Cranial nerves are intact. Sensory: Sensation is intact. Psychiatric: Attention and Perception: Attention and perception normal. Mood and Affect: Mood and affect normal. Speech: Speech normal. Behavior: Behavior normal. Behavior is cooperative. Thought Content: Thought content normal. Cognition and Memory: Cognition and memory normal. Judgment: Judgment normal. Radiology: Hospital Encounter on 09/13/20 XR ABDOMEN 2 VW Narrative XR ABDOMEN 2 VW HISTORY: abdominal pain and vomiting COMPARISON: None. TECHNIQUE: AP view of the abdomen and pelvis FINDINGS: Visualized lung bases are clear. Overall, bowel gas pattern is nonobstructive. There is relative paucity of bowel gas within the mid abdomen bilaterally. Small amount of gas is seen within the epigastrium and left upper quadrant (gastric bubble). Loops of bowel (some small bowel and possibly rectosigmoid) project over the pelvis. Right lower quadrant ostomy appliance. Impression Overall, bowel gas pattern is felt to be nonobstructive with multiple loops of bowel projecting over the pelvis. Ostomy appliance projects over the right lower quadrant. Lab Results (24h): Recent Results (from the past 24 hour(s)) CBC WITH DIFF Collection Time: 09/13/20 12:15 PM Result Value Ref Range WBC 8.87 4.30 - 11.10 10*3/L RBC 4.31 3.93 - 5.25 10*6/L HGB 13.1 11.6 - 15.0 g/dL HCT 41.1 35.7 - 45.2 % MCV 95.4 80.6 - 95.5 fL MCH 30.4 25.9 - 32.8 pg MCHC 31.9 31.6 - 35.1 g/dL RDW-SD 44.9 39.0 - 49.9 fL RDW-CV 12.9 12.0 - 15.5 % PLT 371 (H) 166 - 358 10*3/L MPV 9.7 9.5 - 12.9 fL NRBC/100 WBC 0.0 0.0 - 10.0 /100 WBCs NRBC x10^3 <0.01 10*3/L GRAN MAT (NEUT) % 80.0 % IMM GRAN % 0.50 % LYMPH % 10.4 % MONO % 7.1 % EOS % 1.5 % BASO % 0.5 % GRAN MAT x10^3(ANC) 7.11 (H) 1.88 - 7.09 10*3/uL IMM GRAN x10^3 0.04 0.00 - 0.06 10*3/uL LYMPH x10^3 0.92 (L) 1.32 - 3.29 10*3/uL MONO x10^3 0.63 0.33 - 0.92 10*3/uL EOS x10^3 0.13 0.03 - 0.39 10*3/uL BASO x10^3 0.04 0.01 - 0.07 10*3/uL COMP. METABOLIC PANEL (29649) Collection Time: 09/13/20 12:15 PM Result Value Ref Range NA 139 135 - 145 mmol/L K 4.5 3.5 - 5.0 mmol/L CL 99 98 - 108 mmol/L CO2 TOTAL 31 23 - 31 mmol/L AGAP 9 2 - 16 BUN 14 7 - 23 mg/dL GLUCOSE 115 (H) 70 - 110 mg/dL CREATININE 1.31 (H) 0.50 - 1.04 mg/dL TOTAL BILI 1.4 (H) 0.1 - 1.1 mg/dL CALCIUM 10.6 8.6 - 10.6 mg/dL T PROTEIN 9.1 (H) 6.3 - 8.2 g/dL ALBUMIN 4.7 3.5 - 5.0 g/dL ALK PHOS 160 (H) 34 - 122 U/L ALTv 84 (H) 5 - 35 U/L AST(SGOT) 51 (H) 13 - 40 U/L eGFR Calculation (Non-) 43.9 mL/min/1.73m2 eGFR Calculation () 53.2 mL/min/1.73m2 LIPASE Collection Time: 09/13/20 12:15 PM Result Value Ref Range LIPASE 88 0 - 220 U/L Results for JESSICA CHAKRABORTY ( ) as of 09/13/2020 13:59 Ref. Range 09/10/2020 09:36 SARS-CoV-2 Rapid ID NOW Latest Ref Range: Not Detected Not Detected COVID DMT Interpretation Unknown Interpretation/Re... COVID Results Unknown SARS-CoV-2 Rapid ... Pulse oximetry: Hypoxic/Not Hypoxic IV fluids: ED COURSE Pt with lower abdominal pain, N/V, leaking yellow stool from stoma, surrounding excoriation. Had CTa week ago and colonoscopy 3 days ago. Will check labs and basic xray to rule out obstruction. Pt requesting Benadryl, phenergan and morphine. Clinically dry on exam. Abdomen not rigid, not an acute abdomen. 1305: Pt now complaining of substernal to epigastric pain and ringing in her ears. She denies difficulty breathing. EKG obtained, will check troponin, solumedrol and pepcid given. No air way swelling, no angioedema. 1317: Rhythm Strip: Tachycardia , Rate 109 EKG: reviewed by ri Sinus Tachycardia Rate 109 Comparison with prior EKG: unchanged- no ischemic changes Pt has had 3 CT scans this month. Colonoscopy from 3 days ago showed: - The perianal and digital rectal examinations were normal. The recto-sigmoid colon was acutely angulated, suggesting extrinsict compression. Normal appearing mucosa. Able to be traversed with a gastroscope. Findings: - There was evidence of a prior surgical anastomosis in the ascending colon. This was characterized by healthy appearing mucosa. - The rectum, sigmoid colon, descending colon and transverse colon appeared normal. Biopsies were taken with a cold forceps for histology. - The retroflexed view of the distal rectum and anal verge was normal and showed no anal or rectal abnormalities. DDX includes causes considered but not specified given they were low prob or unlikely to cause immediate or disability. Workup for unlisted, unlikely, or benign causes would likely have yielded harm exceeding benefit. Narx Scores: SKIING INSTRUCTOR Narcotic 280 Sedative 380 Stimulant 140 Overdose Risk Score 650 Orders: Orders Placed This Encounter Procedures XR ABDOMEN 2 VW CBC WITH DIFF COMP. METABOLIC PANEL (01876) LIPASE URINALYSIS TROPONIN I Procedures: Procedures Treatment Medications: Orders Placed This Encounter Medications morpHINE injection 4 mg diphenhydrAMINE (BENADRYL) injection 25 mg proMETHazine (PHENERGAN) 12.5 mg in NaCl 0.9% (NS) 50 mL piggyback NaCl 0.9% (NS) IV infusion 1,000 mL ondansetron (ZOFRAN (PF)) injection 4 mg morpHINE injection 4 mg methylprednisolone sod succ (SOLU-MEDROL) injection 125 mg famotidine (PEPCID (PF)) injection 20 mg NaCl 0.9% (NS) IV infusion 1,000 mL NaCl 0.9% (NS) IV infusion 1,000 mL Diagnosis/Impression: ICD-10-CM ICD-9-CM 1. JULIAN (acute kidney injury) N17.9 584.9 2. Lower abdominal pain R10.30 789.09 3. Vomiting and diarrhea R11.10 787.03 R19.7 787.91 4. Chronic abdominal pain R10.9 789.00 G89.29 338.29 5. Dehydration E86.0 276.51 6. Chest pain, unspecified type R07.9 786.50 Disposition/Condition: ED Disposition ED Disposition Condition Comment Admit - Observation Is this patient COVID positive or a patient under investigation (PUI)?: No Treatment Team: [facility] [[id number]] Primary reason for admission: JULIAN (acute kidney injury) [432880] Secondary reason for admission: Dehydration [276.51.ICD-9-CM] Secondary reason for admission: Ileostomy in place [918737] Is (or was) this a planned re-admission?: No Discharge Medications: Patient's Medications START taking these medications No medications on file CONTINUE taking these medications which have NOT CHANGED ACETAMINOPHEN 325 MG TABLET Take 2 tablets by mouth every 6 (six) hours. ALPRAZOLAM (XANAX) 2 MG TABLET Take 2 mg by mouth 2 (two) times daily. DEXTROAMPHETAMINE-AMPHETAMINE (ADDERALL) 30 MG TABLET Take 30 mg by mouth 2 (two) times daily. HYDROCODONE-ACETAMINOPHEN 5-325 MG TABLET Take 1 tablet by mouth every 6 (six) hours as needed for Pain (scale 4-6) for up to 7 days. Indications: acute pain IBUPROFEN 600 MG TABLET Take 1 tablet [...] these medications No medications on file Follow-up: Pt presented with reported abdominal higgins, N/V and diarrhea. Has chronic abdominal pain. Labs and xray obtained and reviewed by me: no leukocytosis or bandemia, HGB stable, creatinine elevated from 0.84to 1.31, clinically dry on exam. Fluids started. Xray negative for obstruction. Given dehydration inthe setting of JULIAN patient discussed with and admitted to medicine, Dr. Jean. MDM: MDM Reviewed: previous chart, nursing note and vitals Reviewed previous: labs, x-ray and ECG Interpretation: labs, ECG and x-ray Total time providing critical care: < 30 minutes. This excludes time spent performing separately reportable procedures and services. Consults: admitting MD Electronically signed by: GISELLA Cali 09/13/2020 10:30 AM Associated attestation - Ebony Chakraborty DO - 09/13/2020 4:19 PM CDTI was personally available for consultation in the Emergency Department during this encounter and patient evaluation by Hellen Sorenson. documented in this encounter Miscellaneous Notes Care Plan - Kamille Patel RN - 09/18/2020 8:40 AM HOCKEY INSTRUCTOR Problem: Pain Goal: Control of pain at or below patient's documented comfort goal Outcome: Progressing as expected Goal: Reduction in pain sensation Outcome: Progressing as expected Problem: Discharge Planning Goal: Absence of venous thromboembolism Outcome: Progressing as expected Goal: Adequate for discharge Outcome: Progressing as expected Goal: Effective communication Outcome: Progressing as expected Problem: Falls, Risk of Goal: Absence of falls Outcome: Progressing as expected are Plan - Kamille Patel RN - 09/17/2020 9:22 AM HOCKEY INSTRUCTOR Problem: Pain Goal: Control of pain at or below patient's documented comfort goal Outcome: Progressing as expected Goal: Reduction in pain sensation Outcome: Progressing as expected Problem: Discharge Planning Goal: Absence of venous thromboembolism Outcome: Progressing as expected Goal: Adequate for discharge Outcome: Progressing as expected Goal: Effective communication Outcome: Progressing as expected Problem: Falls, Risk of Goal: Absence of falls Outcome: Progressing as expected are Plan - Katheryn Weldon RN - 09/17/2020 1:44 AM HOCKEY INSTRUCTOR. are Plan - Kamille Patel RN - 09/16/2020 8:15 AM HOCKEY INSTRUCTOR Problem: Pain Goal: Control of pain at or below patient's documented comfort goal Outcome: Progressing as expected Goal: Reduction in pain sensation Outcome: Progressing as expected Problem: Discharge Planning Goal: Absence of venous thromboembolism Outcome: Progressing as expected Goal: Adequate for discharge Outcome: Progressing as expected Goal: Effective communication Outcome: Progressing as expected Problem: Falls, Risk of Goal: Absence of falls Outcome: Progressing as expected are Plan - Deepika Gipson RN - 09/16/2020 6:30 AM HOCKEY INSTRUCTOR Problem: Pain Goal: Control of pain at or below patient's documented comfort goal Outcome: Progressing as expected Goal: Reduction in pain sensation Outcome: Progressing as expected Problem: Discharge Planning Goal: Absence of venous thromboembolism Outcome: Progressing as expected Goal: Adequate for discharge Outcome: Progressing as expected Goal: Effective communication Outcome: Progressing as expected Problem: Falls, Risk of Goal: Absence of falls Outcome: Progressing as expected are Plan - Yoshi Lu RN - 09/15/2020 1:12 PM HOCKEY INSTRUCTOR Problem: Falls, Risk of Goal: Absence of falls Outcome: Progressing as expected Problem: Pain Goal: Control of pain at or below patient's documented comfort goal Outcome: Not progressing as expected Problem: Discharge Planning Goal: Absence of venous thromboembolism Outcome: Not progressing as expected are Plan - Henna Oliva RN - 09/15/2020 5:39 AM HOCKEY INSTRUCTOR Problem: Pain Goal: Control of pain at or below patient's documented comfort goal Outcome: Progressing as expected Goal: Reduction in pain sensation Outcome: Progressing as expected Problem: Discharge Planning Goal: Absence of venous thromboembolism Outcome: Progressing as expected Goal: Adequate for discharge Outcome: Progressing as expected Goal: Effective communication Outcome: Progressing as expected Problem: Falls, Risk of Goal: Absence of falls Outcome: Progressing as expected are Plan - Yoshi Lu RN - 09/14/2020 6:37 PM CDT Problem: Falls, Risk of Goal: Absence of falls Outcome: Progressing as expected Problem: Pain Goal: Control of pain at or below patient's documented comfort goal Outcome: Not progressing as expected Problem: Discharge Planning Goal: Absence of venous thromboembolism Outcome: Not progressing as expected Nursing Note - Brittany Curiel RN - 09/14/2020 10:15 AM CDTPatient called out after getting up to BR that stoma had "busted again. Arrived to room to find patient lying in the bed with wafer leaking on all sides. COA and myself went to CS and OR to see abouta smaller wafer, unable to locate one. New wafer (70mm) re-cut to move as far over between navel and stoma as able and trimmed to curve around the navel. I was about to leave the room, when the patient stated she felt it leaking again. The doctor was made aware. Patient eating and medicated for pain. Nurse will change wafer again after patient eats. ursing Note - Brittany Curiel RN - 09/14/2020 10:00 AM CDTPatient called that colostomy is leaking and not sticking arrived to room to find patient in the shower had patient lay in the bed, stoma area and surrounding area cleaned and dried with towel. Surrounding area of stoma is red and excoriated. Stoma and Got order for nystatin powder for the abdomen are. New wafer cut and placed to fit stoma. Care Plan - Katheryn Weldon RN - 09/14/2020 3:00 AM CDT. are Plan - Pascale Joshua RN - 09/13/2020 6:50 PM CDT Problem: Pain Goal: Control of pain at or below patient's documented comfort goal Outcome: Progressing as expected Goal: Reduction in pain sensation Outcome: Progressing as expected Problem: Discharge Planning Goal: Absence of venous thromboembolism Outcome: Progressing as expected Goal: Adequate for discharge Outcome: Progressing as expected Goal: Effective communication Outcome: Progressing as expected Problem: Falls, Risk of Goal: Absence of falls Outcome: Progressing as expected ursing Note - Pascale Joshua RN - 09/13/2020 5:00 PM CDTChanged ostomy bag and wafer. Cleaned site and cut wafer to correct size. Stoma is red and healthy. S urrounding skin is excoriated and painful. documented in this encounter Plan of Treatment Date Type Specialty Care Team Description 09/27/2020 Office Visit Colorectal Surgery Precious Chun MD [address] [facility] [address] [place] [address] [phone] Name Type Priority Associated Diagnoses Order S chedule URINALYSIS LAB STAT Lower abdominal pain STAT for 1 Occurrences Vomiting and diarrhea starti ng 09/13/2020 until 09/13/2020 CBC WITH DIFF LAB Routine EVERY MORNING AT 0500 for 1 Days starting 1 11/16/2019 until 0 Health Maintenance Due Date Last Done Comments PNEUMOCOCCAL 0-64 YEARS COMBINED SERIES (1 1980 of 3 - PCV13) Depression Screening 1986 DTaP,Tdap,and Td Vaccines (1 - Tdap) 1993 PAP SMEAR 07/28/2014 07/28/2011 Breast Cancer Screening (MAMMOGRAM) 2014 INFLUENZA VACCINE (#1) 2020 COLON CANCER SCREENING ANNUAL FIT/FOBT 2024 9, 01/05/2018 COLONOSCOPY 09/10/2030 09/10/2020 Colorectal Cancer Screening 09/10/2030 documented as of this encounter Procedures Procedure Name Priority Date/Time Associated Diagnosis Comme nts COMP. METABOLIC Routine 09/16/2020 6:00 Results for this PANEL (01982) AM HOCKEY INSTRUCTOR procedure are in the results section. COMP. METABOLIC Routine 09/15/2020 3:58 Results for this PANEL ([id number]) AM HOCKEY INSTRUCTOR procedure are in the results section. BASIC METABOLIC Routine 09/14/2020 11:03 Results for this PANEL (NA, K, CL, AM CDT procedure are in CO2, GLUCOSE, BUN, the resul ts CREATININE, CA) section. HEPATIC FUNCTION Add-on 09/14/2020 11:03 Results for this PANEL ([id number]) AM CDT procedure are in (ALB,T.PRO,BILI the results T,BU/BC,ALT,AST,ALK section. PHOS) CREATINE KINASE Add-on 09/14/2020 11:03 Results for this AM CDT procedure are i n the results section. HCV BY PCR Routine 09/14/2020 5:15 Results for this AM CDT procedure are i n the results section. HEPATITIS B SURFACE Routine 09/14/2020 5:15 Resu lts for this ANTIGEN AM CDT procedure are i n the results section. HEPATITIS B SURFACE Routine 09/14/2020 5:15 Resu lts for this ANTIBODY AM CDT procedure are i n the results section. HB ECG ROUTINE & Routine 09/13/2020 1:17 Chest pain, RHYTHM STRIP PM CDT unspecified type TROPONIN I STAT 09/13/2020 1:16 Chest pain, Results for this PM CDT unspecified type procedure a re in the results section. MAGNESIUM Add-on 09/13/2020 1:16 Results for this PM CDT procedure are i n the results section. CBC WITH DIFF STAT 09/13/2020 12:15 Lower abdominal pain Results for this PM CDT Vomiting and procedure are i n diarrhea the results section. COMP. METABOLIC STAT 09/13/2020 12:15 Lower abdominal pain Results for this PANEL ([id number]) PM CDT Vomiting and procedure are in diarrhea the results section. LIPASE STAT 09/13/2020 12:15 Lower abdominal pain Results for this PM CDT Vomiting and procedure are i n diarrhea the results section. XR ABDOMEN 2 VW STAT 09/13/2020 11:44 Lower abdominal pain Results for this AM CDT Vomiting and procedure are i n diarrhea the results section. EMERGENCY DEPARTMENT Routine 09/13/2020 12:01 DOCUMENTS AM CDT documented in this encounter Results COMP. METABOLIC PANEL ([id number]) (09/16/2020 6:00 AM HOCKEY INSTRUCTOR) Pathologist Sig nature NA 135 135 - 145 [facility] mmol/L [facility] K 4.4 3.5 - 5.0 [facility] mmol/L [facility] CL 111 (H) 98 - 108 mmol/L [facility] CO2 TOTAL 21 (L) 23 - 31 mmol/L [facility] AGAP 3 2 - 16 [facility] BUN 11 7 - 23 mg/dL [facility] GLUCOSE 115 (H) 70 - 110 mg/dL [facility] CREATININE 0.83 0.50 - 1.04 [facility] mg/dL [facility] TOTAL BILI 0.5 0.1 - 1.1 mg/dL [facility] CALCIUM 8.3 (L) 8.6 - 10.6 [facility] mg/dL [facility] T PROTEIN 5.4 (L) 6.3 - 8.2 g/dL [facility] ALBUMIN 2.8 (L) 3.5 - 5.0 g/dL [facility] ALK PHOS 71 34 - 122 U/L [facility] ALTv 31 5 - 35 U/L [facility] AST(SGOT) 31 13 - 40 U/L [facility] eGFR Calculation 74.3 mL/min/1.73m2 [facility] (Non-[facility] [place]) eGFR Calculation 90.1 mL/min/1.73m2 [facility] () [facility] Specimen Blood - ARM, LEFT Narrative Performed At Association of Glomerular Filtration Rate (GFR) [facility] and Staging of Kidney Disease* [...] tests). Performing Organization Address City/State/Zipcode Phone Number [facility] CLIA: [id number] [place] [address] COMP. METABOLIC PANEL ([id number]) (09/15/2020 3:58 AM HOCKEY INSTRUCTOR) [facility] nature NA 135 135 - 145 [facility] mmol/L [facility] K 3.9 3.5 - 5.0 [facility] mmol/L [facility] CL 104 98 - 108 mmol/L [facility] CO2 TOTAL 27 23 - 31 mmol/L [facility] AGAP 4 2 - 16 [facility] BUN 15 7 - 23 mg/dL [facility] GLUCOSE 153 (H) 70 - 110 mg/dL [facility] CREATININE 0.91 0.50 - 1.04 [facility] mg/dL [facility] TOTAL BILI 0.4 0.1 - 1.1 mg/dL [facility] CALCIUM 9.2 8.6 - 10.6 [facility] mg/dL [facility] T PROTEIN 7.2 6.3 - 8.2 g/dL [facility] ALBUMIN 3.8 3.5 - 5.0 g/dL [facility] ALK PHOS 106 34 - 122 U/L [facility] ALTv 43 (H) 5 - 35 U/L [facility] AST(SGOT) 28 13 - 40 U/L [facility] eGFR Calculation 66.9 mL/min/1.73m2 [facility] (Non-[facility] [place]) eGFR Calculation 81.0 mL/min/1.73m2 [facility]ORY Specimen Blood - LINE, VENOUS Narrative Performed At Association of Glomerular Filtration Rate (GFR) [facility] and Staging of Kidney Disease* [...] abnormalities in imaging tests). Performing Organization Address City/[facility] Phone Number [facility] CLIA: [id number] [place] [address] HEPATIC FUNCTION PANEL ([id number]) (ALB,T.PRO,BILI T,BU/BC,ALT,AST,ALK PHOS) (09/14/2020 11:03 AM CDT) Pathologist Sig nature TOTAL BILI 0.5 0.1 - 1.1 mg/dL [facility] BILI UNCON 0.4 0.1 - 1.1 mg/dL [facility] BILI CONJ 0.0 0.0 - 0.3 mg/dL [facility] T PROTEIN 6.5 6.3 - 8.2 g/dL [facility] ALBUMIN 3.4 (L) 3.5 - 5.0 g/dL [facility] ALK PHOS 95 34 - 122 U/L [facility] ALTv 45 (H) 5 - 35 U/L [facility] AST(SGOT) 31 13 - 40 U/L [facility] Specimen Blood - ARM, RIGHT Performing Organization Address [facility]/Zipcode Phone Number [facility] CLIA: [id number] [place] [address] CREATINE KINASE (09/14/2020 11:03 AM CDT) Pathologist Sig michelle CK 44 33 - 194 U/L [facility] Specimen Blood - ARM, RIGHT Performing Organization Address City/State/Zipcode Phone Number [facility] CLIA: [id number] [place] [address] BASIC METABOLIC PANEL (NA, K, CL, CO2, GLUCOSE, BUN, CREATININE, CA) (09/14/2020 11:03 AM CDT) Pathologist Sig michelle NA 136 135 - 145 [facility] mmol/L [facility] K 3.9 3.5 - 5.0 [facility] mmol/L [facility] CL 104 98 - 108 mmol/L [facility] CO2 TOTAL 27 23 - 31 mmol/L [facility] AGAP 5 2 - 16 [facility] BUN 17 7 - 23 mg/dL [facility] GLUCOSE 114 (H) 70 - 110 mg/dL [facility] CREATININE 0.84 0.50 - 1.04 [facility] mg/dL [facility] CALCIUM 8.9 8.6 - 10.6 [facility] mg/dL [facility] eGFR Calculation 73.3 mL/min/1.73m2 [facility] (Non-[facility] [place]) eGFR Calculation 88.9 mL/min/1.73m2 [facility] () [facility] Specimen Blood - ARM, RIGHT Narrative Performed At Association of Glomerular Filtration Rate (GFR) [facility] and Staging of Kidney Disease* [...] tests). Performing Organization Address City/State/Zipcode Phone Number [facility] CLIA: [id number] [place] [address] HEPATITIS B SURFACE ANTIBODY (09/14/2020 5:15 AM CDT) Pathologist Sig nature HBsAB Negative [facility] HBsAb 2.90 mIU/mL [facility] Semi-Quantitative SERVICES Specimen Blood - ARM, LEFT Narrative Performed At Interpretation: Hepatitis B Surface An tibody [facility] Negative - Patient is considered to be not immu ne to infection with HBV. Positive - Anti-HBs detected at greater than or equal to 12 mIU/mL. Patient is considered to be immune to infection with HBV. Performing Organization Address City/[facility] Phone Number [facility] CLIA: [id number] [place] [address] [place] [address] HCV BY PCR (09/14/2020 5:15 AM CDT) HCV by Real-Time Not Detected Not detected [facility] PCR IU/mL SERVICES Specimen Blood - ARM, LEFT Narrative Performed At [employer] m2000 RealTime HCV reverse awake overnight [facility] SERVICES chain reaction (RT-PCR) assay is used. It is FDA approved for the quantitation of HCV in plasma and serum samples for HCV-infected individua ls. The FDA approved dynamic range of this test is 12 IU/mL to 100,000,000 IU/mL (1.08-8.00 Log IU/mL). Assay results are reported in IU /mL. . Result Interpretation: Not Detected: Target not detected (not the same as negative), <12 IU/mL: Detected (but not quantifiabl e) 12-100,000,000 IU/mL, >100,000,000 IU/mL: >upper limit of juana tification. Performing Organization Address City/[facility] Phone Number [facility] CLIA: [id number] [place] [address] [place] [address] HEPATITIS B SURFACE ANTIGEN (09/14/2020 5:15 AM CDT) Pathologist Sig [facility] HBsAg Negative Negative [facility] HBsAg 0.09 [facility] Semi-Quantitative SERVICES Specimen Blood - ARM, LEFT Performing Organization Address [facility] Phone Number [facility] CLIA: [id number] [place] [address] [place] [address] MAGNESIUM (09/13/2020 1:16 PM CDT) [facility] MAGNESIUM 1.6 (L) 1.7 - 2.4 mg/dL [facility] Specimen Blood - ARM, RIGHT Performing Organization Address [facility] [place] Phone Number [facility] CLIA: [id number] [place] [address] TROPONIN I (09/13/2020 1:16 PM CDT) Pathologist [facility] TROPONIN I <0.012 <=0.034 ng/mL [facility] Specimen Blood - ARM, RIGHT Narrative Performed At Equal or Less than 0.034 ng/ml---Normal [facility] Note: Cardiac troponin begins to rise 3-4 hours after the onset of ischemia. Repeat in 4-6 hours if the sample was drawn within 3-4 hours of the onset of the symptom and found normal. Between 0.035 and 0.120 ng/mL--- Borderline. Questionable myocardial injury or necros is Note: Serial measurement may be necessary to confirm or exclude the diagnosis of myocardial injury or necrosis; Clinical correlation (symptoms, EKGs, imaging studies, and others) required; Repeat in 4-6 hours if clinically indicated. Equal or Higher than 0.121 ng/mL---Abnormal. Myocardial Injury or Necrosis Likely Biotin has been reported to cause a negative bias, interpret results relative to patient's use of biotin. Performing Organization Address [facility] [place] Phone Number [facility] CLIA: [id number] [place] [address] LIPASE (09/13/2020 12:15 PM CDT) Pathologist Sig nature LIPASE 88 0 - 220 U/L [facility] Specimen Blood - VENOUS Performing Organization Address City/State/Zipcode Phone Number [facility] CLIA: [id number] [place] [address] COMP. METABOLIC PANEL ([id number]) (09/13/2020 12:15 PM CDT) NA 139 135 - 145 [facility] mmol/L [facility] K 4.5 3.5 - 5.0 [facility] mmol/L [facility] CL 99 98 - 108 mmol/L [facility] CO2 TOTAL 31 23 - 31 mmol/L [facility] AGAP 9 2 - 16 [facility] BUN 14 7 - 23 mg/dL [facility] GLUCOSE 115 (H) 70 - 110 mg/dL [facility] CREATININE 1.31 (H) 0.50 - 1.04 [facility] mg/dL [facility] TOTAL BILI 1.4 (H) 0.1 - 1.1 mg/dL [facility] CALCIUM 10.6 8.6 - 10.6 [facility] mg/dL [facility] T PROTEIN 9.1 (H) 6.3 - 8.2 g/dL [facility] ALBUMIN 4.7 3.5 - 5.0 g/dL [facility] ALK PHOS 160 (H) 34 - 122 U/L [facility] ALTv 84 (H) 5 - 35 U/L [facility] AST(SGOT) 51 (H) 13 - 40 U/L [facility] eGFR Calculation 43.9 mL/min/1.73m2 [facility] (Non-[facility] [place]) eGFR Calculation 53.2 mL/min/1.73m2 [facility] () [facility] Specimen Blood - VENOUS Narrative Performed At Association of Glomerular Filtration Rate (GFR) [facility] and Staging of Kidney Disease* [...] tests). Performing Organization Address City/State/Zipcode Phone Number [facility] CLIA: [id number] [place] [address] CBC WITH DIFF (09/13/2020 12:15 PM CDT) Pathologist [facility] [place] nature WBC 8.87 4.30 - 11.10 [facility] 10*3/L [facility] RBC 4.31 3.93 - 5.25 [facility] 10*6/L [facility] HGB 13.1 11.6 - 15.0 [facility] g/dL [facility] HCT 41.1 35.7 - 45.2 % [facility] MCV 95.4 80.6 - 95.5 fL [facility] MCH 30.4 25.9 - 32.8 pg [facility] MCHC 31.9 31.6 - 35.1 [facility] g/dL [facility] RDW-SD 44.9 39.0 - 49.9 fL [facility] RDW-CV 12.9 12.0 - 15.5 % [facility] PLT 371 (H) 166 - 358 [facility] 10*3/L [facility] MPV 9.7 9.5 - 12.9 fL [facility] NRBC/100 WBC 0.0 0.0 - 10.0 /100 [facility] WBCs [facility] NRBC x10^3 <0.01 10*3/L [facility] GRAN MAT (NEUT) % 80.0 % [facility] IMM GRAN % 0.50 % [facility] LYMPH % 10.4 % [facility] MONO % 7.1 % [facility] EOS % 1.5 % [facility] BASO % 0.5 % [facility] GRAN MAT x10^3(ANC) 7.11 (H) 1.88 - 7.09 [facility] 10*3/uL HOSPITAL LABORATORY IMM GRAN x10^3 0.04 0.00 - 0.06 [facility] 10*3/uL HOSPITAL LABORATORY LYMPH x10^3 0.92 (L) 1.32 - 3.29 [facility] 10*3/uL [facility] MONO x10^3 0.63 0.33 - 0.92 [facility] 10*3/[facility] LABORATORY EOS x10^3 0.13 0.03 - 0.39 [facility] 10*3/uL [facility] BASO x10^3 0.04 0.01 - 0.07 [address]/[facility] LABORATORY Specimen Blood - VENOUS Performing Organization Address City/State/Zipcode Phone Number [facility] CLIA: [id number] [place] [address] XR ABDOMEN 2 VW (09/13/2020 11:44 AM CDT) Specimen Impressions Performed At Overall, bowel gas pattern is felt to be nonobstructiv e with multiple PACS/VR/DOSE loops of bowel projecting over the pelvis. Ostomy appliance projects over the right lower quadran t. Narrative Performed At XR ABDOMEN 2 VW PACS/VR/DOSE HISTORY: abdominal pain and vomiting COMPARISON: None. TECHNIQUE: AP view of the abdomen and pe lvis FINDINGS: Visualized lung bases are clear. Overall, bowel gas pattern is nonobstructive. There is relative paucity of bowel gas within the mid abdomen bilaterally. Small am ount of gas is seen within the epigastrium and left upper quadrant (gastri c bubble). Loops of bowel (some small bowel and possibly rectosigmoid) pro ject over the pelvis. Right lower quadrant ostomy appliance. Procedure Note [facility], Radiant Results Inft User - 2019 12:10 PM CDT XR ABDOMEN 2 VW HISTORY: abdominal pain and vomiting COMPARISON: None. TECHNIQUE: AP view of the abdomen and pe lvis FINDINGS: Visualized lung bases are clear. Overall, bowel gas pattern is nonobstruc tive. There is relative paucity of bowel gas within the mid abdomen bilater ally. Small amount of gas is seen within the epigastrium and left upper qu adrant (gastric bubble). Loops of bowel (some small bowel and possibly rec tosigmoid) project over the pelvis. Right lower quadrant ostomy appliance. IMPRESSION Overall, bowel gas pattern is felt to be nonobstructive with multiple loops of bowel projecting over the pelvis. Ostomy appliance projects over the right lower quadrant. Performing Organization Address City/State/Zipcode Phone Number PACS/VR/DOSE documented in this encounter Visit Diagnoses Diagnosis JULIAN (acute kidney injury) - Primary Acute kidney failure, unspecified Lower abdominal pain Abdominal pain, other specified site Vomiting and diarrhea Vomiting alone Chronic abdominal pain Abdominal pain, unspecified site Dehydration Chest pain, unspecified type Abdominal pain, generalized Nausea and vomiting, intractability of v omiting not specified, unspecified vomiting type SBO (small bowel obstruction) Unspecified intestinal obstruction Crohn's disease of colon with complicati on Abdominal pain, unspecified abdominal lo cation Irritable bowel syndrome, unspecified ty pe Multifocal pneumonia Drug-seeking behavior Other, mixed, or unspecified nondependen t drug abuse, unspecified Pneumonia of both lower lobes due to inf ectious organism Sinus tachycardia Other specified cardiac dysrhythmias Generalized abdominal pain Abdominal pain, generalized documented in this encounter Administered Medications Medication Order MAR Action Action Date Dose Rate Site acetaminophen (TYLENOL) tablet Given 09/17/2020 6:26 PM HOCKEY INSTRUCTOR 650 mg 650 mg 650 mg, Oral, Q6H, First dose on Wed09/13/20 at 1800, Until Discontinued, Routine Given 09/17/2020 1:11 PM HOCKEY INSTRUCTOR 650 mg Given 09/17/2020 5:28 AM HOCKEY INSTRUCTOR 650 mg ALPRAZolam (XANAX) tablet 0.5 mg Given 09/18/2020 8:40 AM HOCKEY INSTRUCTOR 0.5 mg 0.5 mg, Oral, TIDPRN, Starting 09/14/20 at 0800, Until Discontinued, Routine, anxiety Given 09/17/2020 8:00 PM HOCKEY INSTRUCTOR 0.5 mg Given 09/17/2020 9:22 AM HOCKEY INSTRUCTOR 0.5 mg diphenhydrAMINE (BENADRYL) injection 12.5 Given 09/18/2020 8:40 AM HOCKEY INSTRUCTOR 12.5 mg mg 12.5 mg, Slow IV Push, Q6HPRN, Starting 09/14/20 at 0926, Until Discontinued, Routine, Itching Given 09/17/2020 8:01 PM HOCKEY INSTRUCTOR 12.5 mg Given 09/17/2020 1:12 PM HOCKEY INSTRUCTOR 12.5 mg heparin (porcine) injection Given 09/18/2020 5:57 AM HOCKEY INSTRUCTOR 5,000 Units Abdomen-SC 5,000 Units 5,000 Units, Subcutaneous, Q8H, First dose (after last modification) on Wed09/13/20 at 2200, Until Discontinued, Routine Given 09/17/2020 9:58 PM HOCKEY INSTRUCTOR 5,000 Units Abdo men-SC Given 09/17/2020 1:12 PM HOCKEY INSTRUCTOR 5,000 Units Left Upper Arm-SC HYDROcodone-acetaminophen (NORCO 5) 5-325 Given 2019 8:40 AM HOCKEY INSTRUCTOR 2 tablets mg tablet 2 tablet 2 tablet, Oral, Q6HPRN, Starting 09/16/20 at 1245, Until Discontinued, Routine, Pain (scale 4-6), Pain (scale 7-10) Given 09/18/2020 2:01 AM HOCKEY INSTRUCTOR 2 tablets Given 09/17/2020 8:00 PM HOCKEY INSTRUCTOR 2 tablets lactobacillus acidophilus (ACIDOPHILLUS) Given 09/18/2020 8 :40 AM HOCKEY INSTRUCTOR 1 tablet 25 million cell -100 mg captab 1 tablet 1 tablet, Oral, TID, First dose on 09/14/20 at 1415, Until Discontinued, Routine Given 09/17/2020 7:47 PM HOCKEY INSTRUCTOR 1 tablet Given 09/17/2020 1:11 PM HOCKEY INSTRUCTOR 1 tablet metoprolol tartrate (LOPRESSOR) tablet 5 0 mg Given 09/18/2020 8:40 AM HOCKEY INSTRUCTOR 50 mg 50 mg, Oral, BID, First dose (after last modification) on Wed09/17/20 at 2000, Until Discontinued, Routine Given 09/17/2020 7:52 PM HOCKEY INSTRUCTOR 50 mg pantoprazole (PROTONIX) EC tablet 40 mg Given 09/18/2020 8:40 AM HOCKEY INSTRUCTOR 40 mg 40 mg, Oral, DAILY, First dose on 09/14/20 at 0900, Until Discontinued Given 09/17/2020 9:22 AM HOCKEY INSTRUCTOR 40 mg Given 09/16/2020 8:15 AM HOCKEY INSTRUCTOR 40 mg proMETHazine (PHENERGAN) 25 mg in NaCl 0.9% Given 09/18/2020 8:40 AM HOCKEY INSTRUCTOR 25 mg (NS) 50 mL IV piggyback 25 mg, IV Piggyback, Q6HPRN, Starting 09/16/20 at 1230, Until Discontinued, Routine, Nausea and Vomiting (N/V) Given 09/18/2020 2:01 AM HOCKEY INSTRUCTOR 25 mg Given 09/17/2020 8:03 PM HOCKEY INSTRUCTOR 25 mg psyllium (METAMUCIL FIBER SINGLES) 3.4 Given 09/18/2020 8:40 AM HOCKEY INSTRUCTOR 1 Packet gram packet 1 Packet 1 Packet, Oral, BID, First dose on 09/14/20 at 1415, Until Discontinued, Routine Given 09/17/2020 7:47 PM HOCKEY INSTRUCTOR 1 Packet Given 09/17/2020 9:22 AM HOCKEY INSTRUCTOR 1 Packet Medication Order MAR Action Action Date Dose Rate Site ALPRAZolam (XANAX) tablet 1 mg Given 09/13/2020 11:09 PM CDT 1 mg 1 mg, Oral, ONCE, 1 dose, Wed09/13/20 at 2330, Routine clindamycin in 5 % dextrose (CLEOCIN) 600 Given 09/14/2020 9:29 AM CDT 600 mg mg/50 mL IV piggyback RTU 600 mg 600 mg, IV Piggyback, Q8H ABX, First dose on 09/14/20 at 0145, Until Discontinued, 50 mL, Reason for Anti-Infective: Empiric Therapy for Suspected Infection, Empiric Therapy Site: Skin / Soft tissue, Duration of therapy: 7 days, Restricted use approved by: ADC PROVIDER Given 09/14/2020 12:58 AM CDT 600 mg diphenhydrAMINE (BENADRYL) injection 12.5 Given 09/14/2020 5:03 AM CDT 12.5 mg mg 12.5 mg, Slow IV Push, Q6HPRN, Starting Wed09/13/20 at 1614, Until 09/14/20 at 0927, Routine, Itching Given 09/13/2020 11:10 PM CDT 12.5 mg Given 09/13/2020 5:07 PM CDT 12.5 mg diphenhydrAMINE (BENADRYL) injection 25 mg Given 09/13/2020 11:01 AM CDT 25 mg 25 mg, Slow IV Push, ONCE, 1 dose, Wed09/13/20 at 1145, STAT famotidine (PEPCID (PF)) injection 20 mg Given 09/13/2020 1:11 PM CDT 20 mg 20 mg, Slow IV Push, ONCE, 1 dose, 09/13/20 at 1415, LUISA HYDROcodone-acetaminophen (NORCO 5) 5-325 Given 2019 8:15 AM HOCKEY INSTRUCTOR 1 tablet mg tablet 1 tablet 1 tablet, Oral, Q4HPRN, Starting 09/15/20 at 0140, Until 09/16/20 at 1235, Routine, Pain (scale 4-6) Given 09/16/2020 1:45 AM HOCKEY INSTRUCTOR 1 tablet Given 09/15/2020 5:32 PM HOCKEY INSTRUCTOR 1 tablet HYDROcodone-acetaminophen (NORCO) 10-325 Given 09/14/2020 11 :36 PM CDT 1 tablet mg tablet 1 tablet 1 tablet, Oral, Q6HPRN, Starting 09/14/20 at 0935, Until 09/15/20 at 0140, Routine, Pain (scale 7-10) Given 09/14/2020 9:50 AM CDT 1 tablet HYDROmorphone (DILAUDID) injection 0.5 m g Given 09/16/2020 6:04 AM HOCKEY INSTRUCTOR 0.5 mg 0.5 mg, Slow IV Push, Q6HPRN, Starting 09/15/20 at 1403, Until 09/16/20 at 1040, Routine, Pain (scale 7-10), Use approved by (Faculty): ADC PROVIDER Given 09/15/2020 9:07 PM HOCKEY INSTRUCTOR 0.5 mg Given 09/15/2020 3:18 PM HOCKEY INSTRUCTOR 0.5 mg HYDROmorphone (DILAUDID) injection 0.5 m g Given 09/16/2020 1:10 PM HOCKEY INSTRUCTOR 0.5 mg 0.5 mg, Slow IV Push, ONCE, 1 dose, 09/16/20 at 1345, Routine, Use approved by (Faculty): ADC PROVIDER HYDROmorphone (DILAUDID) injection 0.5 m g Given 09/17/2020 6:26 PM HOCKEY INSTRUCTOR 0.5 mg 0.5 mg, Slow IV Push, ONCE, 1 dose, 09/17/20 at 1915, Routine, Use approved by (Faculty): ADC PROVIDER HYDROmorphone (DILAUDID) injection 1 mg Given 09/14/2020 9:27 PM CDT 1 mg 1 mg, Slow IV Push, ONCE, 1 dose, 09/14/20 at 2130, Routine, Use approved by (Faculty): ADC PROVIDER HYDROmorphone (DILAUDID) injection 1 mg Given 09/15/2020 1:59 AM CDT 1 mg 1 mg, Slow IV Push, Q4HPRN, Starting 09/15/20 at 0136, Until 09/15/20 at 0839, Routine, Pain (scale 7-10), Use approved by (Faculty): ADC PROVIDER HYDROmorphOne (DILAUDID) injection 1 mg Given 09/15/2020 9:00 AM HOCKEY INSTRUCTOR 1 mg 1 mg, Slow IV Push, Q4HPRN, Starting 09/15/20 at 0838, Until 09/15/20 at 1206, Routine, Pain (scale 7-10), Use approved by (Faculty): ADC PROVIDER HYDROmorphone (DILAUDID) injection 1 mg Given 09/17/2020 12:44 AM HOCKEY INSTRUCTOR 1 mg 1 mg, Slow IV Push, ONCE, 1 dose, 09/17/20 at 0130, Routine, Use approved by (Faculty): [facility] PROVIDER HYDROmorphOne (DILAUDID) injection 1 mg Given 09/17/2020 9:22 AM HOCKEY INSTRUCTOR 1 mg 1 mg, Slow IV Push, ONCE, 1 dose, 09/17/20 at 1015, Routine, Use approved by (Faculty): ADC PROVIDER magnesium oxide (MAG-OX 400) tablet 400 mg Given 09/14/2020 2:50 PM CDT 400 mg 400 mg, Oral, ONCE NOW, 1 dose, 09/14/20 at 1315, Routine methylprednisolone sod succ (SOLU-MEDROL) Given 09/13/2020 1:06 PM CDT 125 mg injection 125 mg 125 mg, IV Piggyback, ONCE, 1 dose, 09/13/20 at 1415, STAT methylprednisolone sod succ (SOLU-MEDROL) Given 09/15/2020 1:57 AM CDT 125 mg injection 125 mg 125 mg, Slow IV Push, ONCE NOW, 1 dose, 09/15/20 at 0245, Routine metoprolol tartrate (LOPRESSOR) tablet 2 5 mg Given 09/17/2020 9:22 AM HOCKEY INSTRUCTOR 25 mg 25 mg, Oral, BID, First dose on Wed09/13/20 at 2000, Until Discontinued, Routine Given 09/16/2020 8:55 PM HOCKEY INSTRUCTOR 25 mg Given 09/16/2020 8:15 AM HOCKEY INSTRUCTOR 25 mg morpHINE injection 2 mg Given 09/13/2020 5:07 PM CDT 2 mg 2 mg, Slow IV Push, Q6HPRN, Starting Wed09/13/20 at 1652, Until Wed09/13/20 at 2249, Routine, Pain (scale 7-10) morpHINE injection 4 mg Given 09/13/2020 11:01 AM CDT 4 mg 4 mg, Slow IV Push, ONCE, 1 dose, Wed09/13/20 at 1145, STAT morpHINE injection 4 mg Given 09/13/2020 12:33 PM CDT 4 mg 4 mg, Slow IV Push, ONCE, 1 dose, Wed09/13/20 at 1315, STAT morpHINE injection 4 mg Given 09/14/2020 3:53 PM CDT 4 mg 4 mg, Slow IV Push, Q4HPRN, Starting Wed09/13/20 at 2300, Until 09/14/20 at 1720, Routine, Pain (scale 7-10) Given 09/14/2020 11:32 AM CDT 4 mg Given 09/14/2020 5:02 AM CDT 4 mg NaCl 0.9% (NS) IV infusion 1,000 New Bag 09/13/2020 11:25 AM C DT 1,000 mL 999 mL/hr mL at 999 mL/hr, Intravenous, ONCE, 1 dose, Wed09/13/20 at 1200, LUISA NaCl 0.9% (NS) IV infusion 1,000 New Bag 09/13/2020 1:11 PM C DT 1,000 mL 999 mL/hr mL at 999 mL/hr, IV Infusion, ONCE, 1 dose, Wed09/13/20 at 1415, LUISA NaCl 0.9% (NS) IV infusion 1,000 New Bag 09/15/2020 8:[address] 1,000 mL 125 mL/hr mL at 125 mL/hr, IV Infusion, CONTINUOUS, Starting Wed09/13/20 at 1515, Until 09/16/20 at 1042, Routine New Bag 09/15/2020 9:08 AM HOCKEY INSTRUCTOR 1,000 mL 125 mL/hr New Bag 09/14/2020 9:22 PM CDT 1,000 mL 125 mL/hr ondansetron (ZOFRAN (PF)) injection 4 mg Given 09/13/2020 12:44 PM CDT 4 mg 4 mg, Slow IV Push, ONCE, 1 dose, Wed09/13/20 at 1315, Routine proMETHazine (PHENERGAN) 12.5 mg in NaCl Given 09/16/2020 8:15 AM HOCKEY INSTRUCTOR 12.5 mg 0.9% (NS) 50 mL IV piggyback 12.5 mg, IV Piggyback, Q4HPRN, Starting Wed09/13/20 at 2023, Until 09/16/20 at 1235, Routine, Nausea and Vomiting (N/V) Given 09/15/2020 9:27 PM HOCKEY INSTRUCTOR 12.5 mg Given 09/15/2020 5:32 PM HOCKEY INSTRUCTOR 12.5 mg proMETHazine (PHENERGAN) 12.5 Given by Provider 09/13/2020 11:45 AM CDT 12.5 mg mg in NaCl 0.9% (NS) 50 mL piggyback 12.5 mg, IV Piggyback, ONCE, 1 dose, Wed09/13/20 at 1145, 50 mL proMETHazine (PHENERGAN) tablet 12.5 mg Given 09/13/2020 5:07 PM CDT 12.5 mg 12.5 mg, Oral, Q6HPRN, Starting Wed09/13/20 at 1652, Until Wed09/13/20 at 2022, Routine, Nausea and Vomiting (N/V) documented in this encounter Insurance Payer Benefit Plan / Subscriber ID Effective Phone Address T ype Group Dates MEDICAID MEDICAID SSI PENDING 2020-Pre [address] Pending [place] [address] documented as of this encounter
--- OUTSIDE RECORDS SUMMARY | 2020-10-24 07:00 | XMS REPORT | Summary of Care ---
:1975 Author Organization [facility] Address [address] [place] [id number] Care Team Providers Name Role Phone Pcp, Does Not Have A Primary Care Provider Annmarie Ramirez RNhairmasters manager Yen Fuentes MAGNETIC TESTING TECHNICIAN Set Staff Fitter Unavailable Reason for Referral (Routine) Status Reason Specialty Diagnoses / Referred By Referred To Procedures Contact Contact New Request Internal Medicine Diagnoses Ileostomy care Precious Chun MD Procedures CONSULT/REFERRAL INTERNAL MEDICINE [address] [facility] [address] [place] [address] Reason for Visit Reason Comments Assessment Encounter Details Date Type Department Care Team Description 09/24/2020 Telephone [facility] Cancer Precious Chun MD Assessment Center-Colorectal [facility] rgery [address] [facility] [address] [place] [address] [place] [phone] Allergies Active Allergy Reactions [...] as of this encounter (statuses as of 09/24/2020) Medications Medication Sig Dispensed Refills Start Date [...] as of this encounter (statuses as of 09/24/2020) Active Problems Problem Noted Date JULIAN (acute kidney injury) 09/13/2020 Abdominal pain 09/04/2020 Abdominal pain, generalized 09/03/2020 Overview: Added automatically from request for kamilah domingo [id number] SBO (small bowel obstruction) 07/24/2020 Crohn's disease of colon with complication 07/23/2020 Overview: Added automatically from request for kamilah domingo [id number] Sinus tachycardia 08/23/2019 Pneumonia 08/18/2019 Drug-seeking behavior 03/10/2019 Multifocal pneumonia 01/24/2018 Dehydration 01/05/2018 IBS (irritable bowel syndrome) 10/02/2011 Depression 10/02/2011 documented as of this encounter (statuses as of 09/24/2020) Social History Tobacco Use Types Packs/Day Years [...] Telephone Encounter - Ami Hunter RN - 09/24/2020 4:32 PM CSTPhone call routed to incorrect pool. Called patient, identified by name and , noted emotional distress via phone call with crying, claims she can not keep anything down. Reports she is struggling with ensure and believes she can not breath enough. Claims she is trying to stay with [facility] but is unsure how to make it [facility] at this time. Advised patient to go to nearest hospital at this time, if someone can take her or to call 911 for ambulance if she is struggling. Patient was able to carry on conversations, but had small pauses in between sentences to catch her breath. Patient reports she will get someone to take her to localED, advised to call office once she has been discharged or to have ED doctors to contact Dr. Monroy to speak with her. Patient verbalized understanding. Also reports she needs a PCP because she has not been set up with one. Informed I would place referral. Will get a call to set up. Forwarded to MD for review. Internal medicine referral placed Ami M Dale, RN IGERATION MECHANIC HELPER Telephone Encounter - TannerPretty - 09/24/2020 3:18 PM CSTJessica Farah is a 44 year old female patient calling still having nausea/vomiting/troublebreathing/unable to keep anything down, also having abdominal pain. Please call [phone] signed by Pretty Tanner at 09/24/2020 3:19 PM CSTdocumented in this encounter Plan of Treatment Date Type Specialty Care Team Description 09/27/2020 Office Visit Colorectal Surgery Precious Chun MD [address] [facility] [address] [place] [address] Health Maintenance Due Date Last Done Comments PNEUMOCOCCAL 0-64 YEARS COMBINED SERIES (1 1980 of 3 - PCV13) Depression Screening 1986 DTaP,Tdap,and Td Vaccines (1 - Tdap) 1993 PAP SMEAR 07/28/2014 07/28/2011 Breast Cancer Screening (MAMMOGRAM) 2014 INFLUENZA VACCINE (#1) 2020 COLON CANCER SCREENING ANNUAL FIT/FOBT 2024 , 01/05/2018 COLONOSCOPY 09/10/2030 09/10/2020 Colorectal Cancer Screening 09/10/2030 documented as of this encounter Results Not on filedocumented in this encounter Visit Diagnoses Diagnosis Ileostomy care - Primary Attention to ileostomy documented in this encounter Insurance Payer Benefit Plan / Subscriber ID Effective Phone Address T ype Group Dates MEDICAID MEDICAID SSI PENDING 2020-Pre [address] Pending [place] [address] documented as of this encounter
--- OUTSIDE RECORDS SUMMARY | 2020-10-24 07:00 | XMS REPORT | Summary of Care ---
:1975 Author Organization [address] [address] Care Team Providers Name Role Phone Pcp, Does Not Have A Primary Care Provider Annmarie Ramirez fan mail editor Yen Fuentes HOSPITAL SECRETARY Florist Helper Unavailable Reason for Visit Reason Comments Hospital F/U Referral/consult Encounter Details Date Type Department Care Team Description 09/19/2020 Patient Outreach [facility] Deepika Ramirez, RN Hospital F/U; [address] Referral/c [place], [place] [address] Allergies Active Allergy Reactions [...] Added automatically from request for kamilah domingo [id number] SBO (small bowel obstruction) 07/24/2020 Crohn's disease of colon with complication 07/23/2020 Overview: Added automatically from request for kamilah domingo [id number] Sinus tachycardia 08/23/2019 Pneumonia 08/18/2019 Drug-seeking behavior [...] encounter Progress Notes Deepika Ramirez RN - 09/19/2020 2:33 PM CSTSummary: CHP F/U: CHP F/U: Pt arrived to her mother's house yesterday after discharging from hospital. The patient has decided to move back to [facility] and is planning on calling GREGORY Pleitez to get assistance with completing paperwork necessary to get into the [facility] system. The patient confirmed she did receive all of her supplies that had previously been purchase through [employer]. Pt sounds more confident re: ileostomy care. She said she was able to understand the WOCN and to figure out how she could apply the ostomy appliance differently to prevent leaking. CM urged the patient to call for further questions/concerns. CM will be removed from care team. BITA Thapa, RN, [facility] Outpatient Industrial Psychology ProfessorLeadership Program InternSelect Specialty Hospital - [facility] O: [phone] M: [phone] documented in this encounter Plan of Treatment Date Type Specialty Care Team Description 09/27/2020 Office Visit Colorectal Surgery Precious Chun MD [address] [facility] [address] [place], [place] [address] Health Maintenance Due Date Last Done Comments [...] [address] Pending [place] [address] documented as of this encounter
--- OUTSIDE RECORDS SUMMARY | 2020-10-24 07:00 | XMS REPORT | Summary of Care ---
:1975 Author Organization [facility] Address [address] [place] [address] Care Team Providers Name Role Phone Pcp, Does Not Have A Primary Care Provider Annmarie Ramirez slasher operator Yen Fuentes RUBBER BALL FINISHER Store Host Unavailable Reason for Visit Reason Comments Follow-up SBO Hospital F/U Fluid Loss - ileostomy 09/24 (Routine) Status Reason Specialty Diagnoses / Referred By Referred To Procedures Contact Contact Authorized CRS-COLON & RECTAL Diagnoses JULIAN (acute kidney injury) Radha Aponte Uma, MD SURGERY / Procedures Discharge Follow-Up: Specialty Service IM-GASTROENTEROLOGY; 2 Weeks GISELLA Guzman [address] [facility] Colorectal Surgery [address] [facility] [address] [place] [address] Phone: Fax: Encounter Details Date Type Department Care Team Description 09/27/2020 Office Visit [facility] Cancer Precious Chun MD SBO (small bowel obstruction) (Primary D x); Center-Colorectal [address] [facility] Surgery [address] [facility], 2nd [place] [phone] Allergies Active Allergy Reactions Severity Noted Date Comments Dicyclomine Hives, Swelling 01/25/2016 Caffeine Hives, Swelling 01/25/2016 Fentanyl Hcl Hives 01/04/2018 Morphine Hives, Itching Low 03/24/2016 Reports she tolerates Morph ine with benadryl Metoclopramide Hcl Itching 10/02/2011 Sulfa (Sulfonamide Nausea and/or 10/02/2011 Antibiotics) Vomiting Pentazocine Lactate Hives, Swelling 01/25/2016 Ketorolac Tromethamine Hives 01/25/2016 Tramadol Itching, Swelling 07/30/2020 Ondansetron Hcl (Pf) Itching 10/02/2011 documented as of this encounter (statuses as of 09/30/2020) Medications Medication Sig Dispensed Refills Start Date [...] every 6 (small bowel (six) hours. obstruction) HYDROcodone-acetaminop Take 1 tablet by 14 [...] Vomiting (N/V) for up to 20 days. psyllium 3.4 gram Take 1 Packet by 90 Packet 0 09/27/202010/15 Active packetIndications: mouth 3 (three) Chest pain, times daily unspecified type before meals for 30 days. opium 10 mg/mL Take 1 mL by 1 Bottle 0 09/27/2020 A ctive (morphine) mouth every 6 tinctureIndications: (six) hours. Ileostomy care documented as of this encounter (statuses as of 09/30/2020) Active Problems Problem Noted Date Ileostomy care 09/27/2020 Overview: Added automatically from request for kamilah lane [id number] Acute renal failure 09/25/2020 Renal failure 09/25/2020 E44.0 Moderate protein calorie malnutrition 09/25/2020 JULIAN (acute kidney injury) 09/13/2020 Abdominal pain 09/04/2020 Abdominal pain, generalized 09/03/2020 Overview: Added automatically from request for kamilah lane [id number] SBO (small bowel obstruction) 07/24/2020 Crohn's disease of colon with complication 07/23/2020 Overview: Added automatically from request for kamilah lane [id number] Sinus tachycardia 08/23/2019 Pneumonia 08/18/2019 Drug-seeking behavior 03/10/2019 Multifocal pneumonia 01/24/2018 Dehydration 01/05/2018 IBS (irritable bowel syndrome) 10/02/2011 Depression 10/02/2011 documented as of this encounter (statuses as of 09/30/2020) Social History Tobacco Use Types Packs/Day Years Used Date Current Every Day Smoker Smokeless Tobacco: Never Used Comments: 2-3 cigerette/day Alcohol Use Drinks/Week oz/Week Comments No Education Answer Date Recorded What is the highest level of school you have High school [employer] 07/24/2020 completed or the highest degree you [...] been in contact with No / Unsure 09/24/2020 10:19 PM CABINET MOUNTER someone who was confirmed or suspected to have Coronavirus / COVID-19? documented as of this encounter Last Filed Vital Signs Vital Sign Reading Time Taken Comments Blood Pressure 98/64 09/27/2020 9:38 AM CABINET MOUNTER Pulse 86 09/27/2020 9:38 AM CABINET MOUNTER Temperature 37.1 C (98.7 F) 09/27/2020 9:38 AM CABINET MOUNTER Respiratory Rate - - Oxygen Saturation 100% 09/27/2020 9:38 AM CABINET MOUNTER Inhaled Oxygen Concentration - - Weight 59.1 kg (130 lb 4.8 oz) 09/27/2020 9:38 AM CABINET MOUNTER Height 170.2 cm (5' 7") 09/27/2020 9:38 AM CABINET MOUNTER Body Mass Index 20.41 09/27/2020 9:38 AM CABINET MOUNTER documented in this encounter Progress Notes Eden Kulkarni MD - 09/27/2020 9:30 AM CST Visit Type: Clinic Note / History and Physical Chief Complaint: requests ileostomy closure HPI Jessica Farah is a 44 year old female who had been treated for possible Crohn's disease before and was admitted with an adhesive SBO in 07/2020, and underwent ileocecectomy and end ileostomy.No sign of active Crohn's disease was found at the time of surgery and 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 Follow up colonoscopy on 09/10/20 demonstrated normal mucosa throughout the colon. Patient is complaining of high ileostomy output since surgery. She has constant nausea and vomiting with food intolerance. States cannot keep up with the output and gets dehydrated. She was admitted tospital previously with JULIAN and increased Cr due to dehydration. It has been improved with increasefluid intake. She is also Taking Metamucil TID with some improvement in symptoms. She is complaining of generalized abdominal pain as well. Denies fever Histories Past Medical History: Diagnosis Date Crohn disease Drug-seeking behavior 03/04/2019 Please avoid using narcotics IBS (irritable bowel syndrome) Past Surgical History: Procedure Laterality Date SECTION X 2 FLEXIBLE SIGMOIDOSCOPY (SHX) N/A 09/10/2020 Surgeon: Mariana Allen MD; Location: [facility] HYSTERECTOMY 2010 ILEOCECECTOMY N/A 07/25/2020 Surgeon: Precious Chun MD; Location: [facility] ILEOSTOMY N/A 07/25/2020 Surgeon: Precious Chun MD; Location: [facility] TUBAL LIGATION 1996 No family history on file. 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 Social Needs Financial resource strain: Not hard [...] file Gets together: Not on file Attends islam service: Not on file Active member of [...] file Social History Narrative Not on file Allergies Allergen Reactions Bentyl [Dicyclomine] Hives and Swelling Caffeine Hives and Swelling Fentanyl Hcl Hives Reglan [Metoclopramide Hcl] Itching Sulfa (Sulfonamide Antibiotics) Nausea and/or Vomiting Talwin [Pentazocine Lactate] Hives and Swelling Toradol [Ketorolac Tromethamine] Hives Tramadol Itching and Swelling Zofran [Ondansetron Hcl (Pf)] Itching Morphine Hives and Itching Reports she tolerates Morphine with benadryl Current Outpatient Medications Medication Sig Dispense Refill opium 10 mg/mL (morphine) tincture Take 1 mL by mouth every 6 (six) hours. 1 Bottle 0 psyllium 3.4 gram packet Take 1 Packet by mouth 3 (three) times daily before meals for 30 days. 90 Packet 0 HYDROcodone-acetaminophen 5-325 mg tablet Take 1 tablet by mouth every 6 (six) hours as needed for Pain (scale 4-6). Indications: acute pain 14 tablet 0 proMETHazine 25 mg tablet Take 1 tablet by mouth every 6 (six) hours as needed for Nausea and Vomiting (N/V) for up to 20 days. 24 tablet 0 acetaminophen 325 mg tablet Take 2 tablets by mouth every 6 (six) hours. 50 tablet 1 metoprolol tartrate 25 mg tablet Take 1 tablet by mouth 2 (two) times daily. 60 tablet 0 ALPRAZolam (XANAX) 2 mg tablet Take 2 mg by mouth 2 (two) times daily. Pantoprazole (PROTONIX) 40 mg delayed-release suspension Take 40 mg by mouth 2 (two) times daily. No current facility-administered medications for this visit. Review of Systems (-)=Negative,(+)=Positive Constitutional: Denies fever or chills Eyes: Denies change in visual acuity HENT: Denies nasal congestion or sore throat Respiratory: Denies cough or shortness of breath Cardiovascular: Denies chest pain or edema GI: + abdominal pain, nausea and vomiting : Denies dysuria Musculoskeletal: Denies back pain or joint pain Integument: Denies rash Neurologic: Denies headache, focal weakness or sensory changes Endocrine: Denies polyuria or polydipsia Lymphatic: Denies swollen glands Psychiatric: Denies depression or anxiety Physical Exam (-)=Negative,(+)=Positive BP 98/64 (BP Location: Left arm, Patient Position: Sitting, BP CUFF SIZE: Adult Medium) | Pulse 86| Temp 37.1 C (98.7 F) (Oral) | Ht 1.702 m (5' 7") | Wt 59.1 kg (130 lb 4.8 oz) | SpO2 100% | BMI 20.41 kg/m Constitutional: Well developed, well nourished, no acute distress, non-toxic appearance Eyes: PERRL, conjunctiva normal, anicteric HENT: Atraumatic,Neck- normal range of motion, no tenderness, supple Respiratory: No respiratory distress, normal breath sounds, Cardiovascular: Normal rate, normal rhythm, GI: Soft, mildly generalized tenderness, ND, ileostomy in place with liquid stool : Normal phallus, no scrotal or testicular masses Musculoskeletal: No edema, no tenderness, no deformities. Back- no tenderness Integument: Well hydrated, no rash Lymphatic: No lymphadenopathy noted Neurologic: Alert & oriented x 3, normal motor function, normal sensory function, no focal deficits noted Psychiatric: Speech and behavior appropriate Colonoscopy - Surgical anastomosis, characterized by healthy appearing mucosa. - The rectum, sigmoid colon, descending colon and transverse colon are normal. Biopsied. Pathology Surgical path: A. SMALL INTESTINE AND PARTIAL CECUM, ILEOCECECTOMY: - SEGMENTAL SMALL INTESTINE ISCHEMIC NECROSIS WITH TRANSMURAL INVOLVEMENT, SECONDARY TO FIBROTIC ADHESION AND SMALL BOWEL OBSTRUCTION - SEVERE VENOUS CONGESTION WITH SUBMUCOSAL AND TRANSMURAL HEMORRHAGE - NO EVIDENCE OF ACTIVE CROHN'S DISEASE - SURGICAL MARGINS ARE VIABLE - NO MALIGNANCY IDENTIFIED - APPENDIX WITH SEROSITIS Colonoscopy samples: A. COLON, RIGHT, BIOPSY: - COLONIC MUCOSA WITH NO PATHOLOGIC CHANGES - NO GRANULOMA OR DYSPLASIA IDENTIFIED B. COLON, TRANSVERSE, BIOPSY: - COLONIC MUCOSA WITH NO PATHOLOGIC CHANGES - NO GRANULOMA OR DYSPLASIA IDENTIFIED C COLON, DESCENDING, BIOPSY: - COLONIC MUCOSA WITH NO PATHOLOGIC CHANGES - NO GRANULOMA OR DYSPLASIA IDENTIFIED D. RECTUM, BIOPSY: - RECTAL MUCOSA WITH NO PATHOLOGIC CHANGES - NO GRANULOMA OR DYSPLASIA IDENTIFIED Assessment/Diagnosis Jessica Farah is a 44 year old female who had been treated for possible Crohn's disease before and was admitted with an adhesive SBO in 07/2020, and underwent ileocecectomy and end ileostomy.No sign of active Crohn's disease was found at the time of surgery and 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 Follow up colonoscopy on 09/10/20 demonstrated normal mucosa throughout the colon. Patient has high ileostomy outputs and desires to close it Plan Recommend continue with high water intake, Metamucil to prevent dehydration. We prescribed Morphine Tincture to decrease ileostomy output Patient is consented for ileostomy closure Eden Apodaca MD General Surgery. PGY2 ATTESTATION: I agree with the resident's note as written. I actively participated in the decision making process.Please see the resident's note for additional details. Ms. Farah is ~2months post SBR for ischemic bowel. No evidence of Crohn's disease on pathology. She has had multiple admissions for dehydration and generalized abdominal pain. I recommended proceeding with ileostomy closure. I explained ileostomy closure via laparotomy and the risks. Informed consent was obtained. Plan for OR next available date. Will try tincture of opium to decrease ostomy output and encouraged increased water/gatorade intake. All of her and her uncle's questions were answeredand they agree to the plan. Precious Chun MD MS Colon and Rectal Surgery documented in this encounter Plan of Treatment Date Type Specialty Care Team Description 10/14/2020 Hospital Encounter Ambulatory Surgical Jorge Chun ma, MD Ileostomy care [address] [facility] [address] [place] [address] [phone] 10/14/2020 Surgery Surgery Precious Chun MD EXPLORATORY [address] [facility] [address] [place] [address] [phone] Health Maintenance Due Date Last Done Comments [...] intestinal obstruction Ileostomy care Attention to ileostomy Ileostomy care - Primary Attention to ileostomy Ileostomy care Attention to ileostomy documented in this encounter Additional Health Concerns Infection Onset Date Last Indicated Resolved Time COVID-19 Rule Out 09/25/2020 09/25/2020 documented as of this encounter
--- OUTSIDE RECORDS SUMMARY | 2020-10-24 07:01 | XMS REPORT | Summary of Care ---
:1975 Author Organization [facility] Address [address] [place] [address] Care Team Providers Name Role Phone Pcp, Does Not Have A Primary Care Provider Annmarie Ramirez sales utility representative Yen Fuentes FIRE CONTROL SYSTEM INSTALLER General Scrap Worker Unavailable Reason for Visit Reason Comments Follow-up [facility] F/U Fluid Loss - ileostomy 09/24 (Routine) Status Reason Specialty Diagnoses / Referred By Referred To Procedures Contact Contact Authorized CRS-COLON & RECTAL Diagnoses JULIAN (acute kidney injury) Radha Aponte Uma, MD SURGERY / Procedures Discharge Follow-Up: Specialty Service IM-GASTROENTEROLOGY; 2 Weeks GISELLA Guzman [address] [facility] [address] [facility] [address] [place] [address] Phone: Fax: Encounter Details Date Type Department Care Team Description 09/27/2020 Office Visit [facility] Cancer Precious Chun MD SBO (small bowel obstruction) (Primary D x); Center-Colorectal [address] [facility] Surgery [address] [facility], 2nd [place] [address] [phone] Allergies Active Allergy Reactions Severity Noted Date [...] Added automatically from request for kamilah lane [id number] Acute renal failure 09/25/2020 Renal failure 09/25/2020 E44.0 Moderate protein calorie malnutrition 09/25/2020 JULIAN (acute kidney injury) 09/13/2020 Abdominal pain 09/04/2020 Abdominal pain, generalized 09/03/2020 Overview: Added automatically from request for kamilah [address] [id number] SBO (small bowel obstruction) 07/24/2020 Crohn's disease of colon with complication 07/23/2020 Overview: Added automatically from request for kamilah [address] [id number] Sinus tachycardia 08/23/2019 Pneumonia 08/18/2019 Drug-seeking behavior [...] with No / Unsure 09/24/2020 10:19 PM TILE SPRAYER someone who was confirmed or suspected to have Coronavirus / COVID-19? documented as of this encounter Last Filed Vital Signs Vital Sign Reading Time Taken Comments Blood Pressure 98/64 09/27/2020 9:38 AM TILE SPRAYER Pulse 86 09/27/2020 9:38 AM TILE SPRAYER Temperature 37.1 C (98.7 F) 09/27/2020 9:38 AM TILE SPRAYER Respiratory Rate - - Oxygen Saturation 100% 09/27/2020 9:38 AM TILE SPRAYER Inhaled Oxygen Concentration - - Weight 59.1 kg (130 lb 4.8 oz) 09/27/2020 9:38 AM TILE SPRAYER Height 170.2 cm (5' 7") 09/27/2020 9:38 AM TILE SPRAYER Body Mass Index 20.41 09/27/2020 9:38 AM TILE SPRAYER documented in this encounter Progress Notes [place] [...] N/A 09/10/2020 Surgeon: Mariana Allen MD; Location: [place] [facility] Location HYSTERECTOMY 2010 ILEOCECECTOMY N/A 07/25/2020 [...] level: High school graduate 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 [address] [place] [address] [phone] Health Maintenance Due Date Last Done Comments [...]
--- OUTSIDE RECORDS SUMMARY | 2020-10-24 07:01 | XMS REPORT | Summary of Care ---
:1975 Author Organization [facility] Address [address] [place] [address] Care Team Providers Name Role Phone Pcp, Does Not Have A Primary Care Provider Annmarie Ramirez dock clerk Yen Fuentes BOARD OF DIRECTORS Outreach Coordinator Unavailable Reason for Visit Reason Comments Transition Of Care Encounter Details Date Type Department Care Team Description 10/01/2020 Transition of Care [facility] Edis Damon Transition Of Care [facility] [address] [place] [address] Allergies Active Allergy Reactions Severity Noted Date [...] as of this encounter (statuses as of 10/01/2020) Medications Medication Sig Dispensed Refills Start Date [...] as of this encounter (statuses as of 10/01/2020) Active Problems Problem Noted Date Ileostomy care 09/27/2020 Overview: Added automatically from request for kamilah domingo [id number] Acute renal failure 09/25/2020 Renal failure 09/25/2020 E44.0 Moderate protein calorie malnutrition 09/25/2020 JULIAN (acute kidney injury) 09/13/2020 Abdominal pain 09/04/2020 Abdominal pain, generalized 09/03/2020 Overview: Added automatically from request for kamilah domingo [id number] SBO (small bowel obstruction) 07/24/2020 Crohn's disease of colon with complication 07/23/2020 Overview: Added automatically from request for kamilah domingo [id number] Sinus tachycardia 08/23/2019 Pneumonia 08/18/2019 Drug-seeking behavior 03/10/2019 Multifocal pneumonia 01/24/2018 Dehydration 01/05/2018 IBS (irritable bowel syndrome) 10/02/2011 Depression 10/02/2011 documented as of this encounter (statuses as of 10/01/2020) Social History Tobacco Use Types Packs/Day Years [...] with No / Unsure 09/24/2020 10:19 PM HVAC MECHANICAL ENGINEER someone who was confirmed or suspected to have Coronavirus / COVID-19? documented as of this encounter Last Filed Vital Signs Not on filedocumented in this encounter Miscellaneous Notes Telephone Encounter - Lynda Damon - 10/01/2020 9:54 AM HVAC MECHANICAL ENGINEER TRANSITIONAL CARE MANAGEMENT ASSESSMENT 10/01/2020 Jessica Farah [id number] Jessica Farah is a 44 year old Black or female was admitted on 09/24/20 to [facility] ([facility] [address]. She was discharged on 09/27/20 with discharge disposition of HR- Routine Discharge. Admitting Physician: Sean Torres Discharge Diagnosis:acute renal failure Pt. Does not want to discuss medical issues, but would like to discuss or talk to someone regarding some diagnosis that she read on her discharge summary. Pt. Voiced her thoughts, transferred to Patient relations. No linked episodes TCM [id number]-face outreach documentation: Discharge Assessment Chart Assessed: 10/01/20 TCM Outreach Completed: 10/01/20 Do you have a few minutes to speak with me about how you are doing at home?: No Survey - Recognition Is there anything you would like to share about your recent hospitalization, or anyone you would like to recognize?: Yes Survey tasks completed:: (transferred to patient relations.) Do you have any other questions or concerns at this time?: Yes Future Appointments: documented in this encounter Plan of Treatment Date Type Specialty Care Team Description 10/14/2020 Hospital Encounter Ambulatory Surgical Jorge Chun ma, MD Ileostomy care [address] [facility] [address] [place], [place] [id number] 10/14/2020 Surgery Surgery Precious Chun MD EXPLORATORY [address] [facility] [address] [place], [place] [phone] Health Maintenance Due Date Last Done Comments [...] 09/25/2020 09/25/2020 documented as of this encounter Insurance Payer Benefit Plan / Subscriber ID Effective Phone Address T ype Group Dates MEDICAID MEDICAID SSI PENDING 2020-Pre [address] Pending PENDING [place] [phone] documented as of this encounter
--- OUTSIDE RECORDS SUMMARY | 2020-10-24 07:01 | XMS REPORT | Summary of Care ---
:1975 Author Organization [facility] Address [address] [place] [address] Care Team Providers Name Role Phone Pcp, Does Not Have A Primary Care Provider Annmarie Ramirez RNplaner stone Yen Fuentes REAL ESTATE AGENT Fulling Machine Operator Unavailable Reason for Visit Reason Comments Talk To Nurse Encounter Details Date Type Department Care Team Description 09/30/2020 Telephone [facility] Cancer Precious Chun MD Talk To Nurse Center-Colorectal [facility] [address] [facility] [address] [facility] [place] [address] [place] [address] [place] [phone] Allergies Active Allergy Reactions [...] Added automatically from request for kamilah domingo [id number] Acute renal failure 09/25/2020 Renal failure 09/25/2020 E44.0 Moderate protein calorie malnutrition 09/25/2020 JULIAN (acute kidney injury) 09/13/2020 Abdominal pain 09/04/2020 Abdominal pain, generalized 09/03/2020 Overview: Added automatically from request for kamilah domingo [id number] SBO (small bowel obstruction) 07/24/2020 Crohn's disease of colon with complication 07/23/2020 Overview: Added automatically from request for kamilah domingo [id number] Sinus tachycardia 08/23/2019 Pneumonia 08/18/2019 Drug-seeking behavior [...] with No / Unsure 09/24/2020 10:19 PM PACKAGE CLERK someone who was confirmed or suspected to have Coronavirus / COVID-19? documented as of this encounter Last Filed Vital Signs Not on filedocumented in this encounter Miscellaneous Notes Telephone Encounter - Carmen Corley V - 10/01/2020 10:13 AM CSTReturned patient's call. Patient stated that she does not want to speak with anyone other than Ami, or Dr. Chun. Patient stated that she feels more comfortable speaking with them about her concerns since they know her situation. Patient stated that she does not mind waiting until Dr. Chun is in clinic on Wednesday to speak with her. I offered for patient to speak with our BO[place] MATE to address any questions or concerns--patient declined. Patient stated that the Morphine Tincture that was prescribed to her at last visit is too expensive. Patient stated that the medication will cost $253.00. Patient would like to know if there is any alternative treatment for her. Patient does not mind speaking with the BOATS[place] MATE to discuss the medication only. Will route message to MD. elephone Encounter - aDnielle Bain - 09/30/2020 1:34 PM CSTPatient has questions regarding her surgery documented in this encounter Plan of Treatment Date Type Specialty Care Team Description 10/14/2020 Hospital Encounter Ambulatory Surgical Jorge Chun ma, MD Ileostomy care [address] [facility] [address] [place], [place] [phone] 10/14/2020 Surgery Surgery Precious Chun MD EXPLORATORY [address] [facility] [address] [place] [address] [phone] Health Maintenance Due Date Last Done Comments [...] Universi ty Pending [place] [phone] documented as of this encounter
--- OUTSIDE RECORDS SUMMARY | 2020-10-24 07:02 | XMS REPORT | Summary of Care ---
:[address] [facility] Address [address] [place] [address] Care Team Providers Name Role Phone Pcp, Does Not Have A Primary Care Provider Annmarie Ramirez pattern cutter Yen Fuentes MECHANICAL SERVICE SPECIALIST State Pilot Unavailable Reason for Visit Reason Comments Abdominal Pain Encounter Details Date Type Department Care Team Description 10/01/2020 - Emergency ADC-Emergency Ebony Farah, Vomrenetta g, intractability of vomiting not specified, presence of nausea not specified, unspecified vomiting type (Primary Dx); 10/02/2020 Department DO Drug-seeking behavior [address] [place] [id number] [place] [address] [phone] Allergies Active Allergy Reactions Severity Noted Date [...] as of this encounter (statuses as of 10/02/2020) Medications Medication Sig Dispensed Refills Start Date [...] every 6 tinctureIndications: (six) hours. Ileostomy care acetaminophen-codeine Take 1 tablet by 30 tablet 0 10/02/2020 Active (TYLENOL-CODEINE #3) mouth every 4 300-30 mg (four) hours as tabletIndications: needed for Pain chronic pain (scale 1-3). Indications: chronic pain documented as of this encounter (statuses as of 10/02/2020) Active Problems Problem Noted Date Ileostomy care 09/27/2020 Overview: Added automatically from request for kamilah domingo [id number] Acute renal failure 09/25/2020 Renal failure 09/25/2020 E44.0 Moderate protein calorie malnutrition 09/25/2020 JULIAN (acute kidney injury) 09/13/2020 Abdominal pain 09/04/2020 Abdominal pain, generalized 09/03/2020 Overview: Added automatically from request for kamilah lane [id number] SBO (small bowel obstruction) 07/24/2020 Crohn's disease of colon with complication 07/23/2020 Overview: Added automatically from request for kamilah lane [id number] Sinus tachycardia 08/23/2019 Pneumonia 08/18/2019 Drug-seeking behavior 03/10/2019 Multifocal pneumonia 01/24/2018 Dehydration 01/05/2018 IBS (irritable bowel syndrome) 10/02/2011 Depression 10/02/2011 documented as of this encounter (statuses as of 10/02/2020) Social History Tobacco Use Types Packs/Day Years [...] been in contact with No / Unsure 10/01/2020 10:51 PM PAPER BALER someone who was confirmed or suspected to have Coronavirus / COVID-19? documented as of this encounter Last Filed Vital Signs Vital Sign Reading Time Taken Comments Blood Pressure 122/88 10/01/2020 10:53 PM PAPER BALER Pulse 133 10/01/2020 10:53 PM PAPER BALER Temperature 37.3 C (99.1 F) 10/01/2020 10:53 PM PAPER BALER Respiratory Rate 20 10/02/2020 12:35 AM PAPER BALER Oxygen Saturation 97% 10/02/2020 12:35 AM PAPER BALER Inhaled Oxygen Concentration - - Weight 59 kg (130 lb) 10/01/2020 10:53 PM PAPER BALER Height 170 cm (5' 6.93") 10/01/2020 10:53 PM PAPER BALER Body Mass Index 20.4 10/01/2020 10:53 PM PAPER BALER documented in this encounter Discharge Instructions Ebony Parker, - 10/02/2020DIAGNOSIS 1. Vomiting 2. Diarrhea 3. Ostomy irritation 4. Chronic pain NO LIFE-THREATENING FINDINGS ON TODAY'S EXAM. PROCEDURES IN THE ER TODAY: Blood work MEDICATIONS ADMINISTERED IN THE ER TODAY: IV fluids Phenergan YOUR PRESCRIPTIONS AND [id number] MEDICATION RECOMMENDATIONS: Tylenol with codeine by mouth every 4 hours as needed for pain. SPECIAL CARE INSTRUCTIONS: None FOLLOW-UP RECOMMENDATIONS: RECOMMEND FOLLOW-UP WITH A PRIMARY CARE PROVIDER OR SPECIALIST IN 2-5 DAYS, ESPECIALLY IF NO IMPROVEMENT IN SYMPTOMS. TO FOLLOW-UP WITHIN THE [facility], TRY THESE OPTIONS (CLINIC APPOINTMENTS AVAILABLE ON OYLC-RE-YXOR BASIS): 1. SCHEDULE AN APPOINTMENT ONLINE AT WWW[facility] 2. OR CALL THE [facility] ACCESS CENTER AT OR 3. OR CALL YOUR [facility] PHYSICIAN'S OFFICE DIRECTLY IF YOU ARE ALREADY AN ESTABLISHED [facility] PATIENT. OR, YOU MAY FOLLOW-UP WITH A PROVIDER OF YOUR CHOICE, SUCH : 1. A PHYSICIAN OF YOUR CHOICE 2. [facility], . LOCATIONS IN [facility] 3. [facility], [address] [place] [address]; [phone] RETURN TO ER FOR WORSENING OF SYMPTOMS. AttachmentsThe following attachments cannot be sent through Care Everywhere. Vomiting and Diarrhea,Self-Care for (Ukrainian)Caring For Your Stoma: Ileostomy (Ukrainian)documented in this encounter ED Notes aKmille Zacarias RN - 10/02/2020 1:10 AM CSTRN at bedside to provide patient with discharge instructions, new colostomy supplies and prescription. Patient upset that no pain medication is being given to her in the ER only a prescription. Patientcussing and upset requesting to speak to MD. Dr. Farah at bedside to talk with patient. Patient yelling and using superlatives towards MD & stated " I Could get that from you outside from your pocket because your probably selling it." Patient upset continuing to rant/cuss about provider after provider left. Patient signed discharge paperwork. PIV removed and patient provided AVS, Discharge instructions, and Prescription. Ebony Mendoza DO - 10/02/2020 1:01 AM CSTPatient becoming very disrespectful to myself and staff. She is cursing at myself and staff. Accusing myself and other staff of stealing pain medications. Stats she is able to get whatever medications she wants from the street. Staff left the room and she continued to curse and yell in the room. [facility] officer notified. Kamille Morataya RN - 10/02/2020 12:40 AM CSTAssisted patient in changing ostomy bag. Patient called RN to room due to new ostomy bag leaking andneeding ostomy bag supplies. lumber sales supervisor notified of need for supplies. Patient upset that we cannot stop/prevent ostomy bag/site from leaking. R BALER Angeles Siddiqui RN - 10/01/2020 10:51 PM CSTC/O burning around stoma of her colostomy bag. Patient states she has been vomiting too Ebony Mendoza DO - 10/01/2020 10:45 PM CST [facility] Emergency Department Note Patient Name: Jessica Farah Date of : 1975 44 year old female Treatment Room: [place] [address] Primary Care Physician: PATIENT DOES NOT HAVE [...] Chief Complaint Patient presents with Abdominal Pain History of Present Illness: Patient presents for eval for n/v that started around 1730 this evening. Denies sick contacts. No bad food exposure. No recent travels. Also with diarrhea today. Has an ostomy bag due to sbo and colon resection in the past. Has had to change the bag numerous times today due to increase output. No blood in vomit or stool. Has h/o n/v and takes phenergan at home. Did take it earlier today and states it has not really helped. Was recently admitted to the [facility] for JULIAN and went home on 09/27. No fevers. No cough or URI sx. No dysuria. Is s/p hysterectomy. Not lightheaded or dizzy. States she is scheduled to be put back together with her colon the end of this month. Here for eval. Past Medical History/Immunizations: Past Medical History: Diagnosis Date Crohn disease Drug-seeking behavior 03/04/2019 Please avoid using narcotics IBS (irritable bowel syndrome) Tetanus received in [...] N/A 09/10/2020 Surgeon: Mariana Allen MD; Location: [facility] Location HYSTERECTOMY 2010 ILEOCECECTOMY N/A 07/25/2020 Surgeon: Precious Chun MD; Location: [facility] ILEOSTOMY N/A 07/25/2020 Surgeon: Precious Chun MD; Location: [facility] Kristine TUBAL LIGATION 1996 Review of Systems: Review of Systems Constitutional: Negative for chills and fever. Respiratory: Negative for cough and shortness of breath. Cardiovascular: Negative for chest pain. Gastrointestinal: Positive for abdominal pain, diarrhea, nausea and vomiting. Genitourinary: Negative for dysuria. Musculoskeletal: Negative for arthralgias, neck pain and neck stiffness. Skin: Positive for wound. Neurological: Negative for dizziness. Psychiatric/Behavioral: Negative for agitation. Endocrine: Negative for goiter. Physical Exam: ED Triage Vitals [10/01/20 2253] Weight 59 kg (130 lb) Actual or estimated Height 1.7 m (5' 6.93") BP 122/88 Pulse 133 Resp 18 Temp 37.3 C (99.1 F) Temp source Oral SpO2 100 % Measured on Room air Physical Exam Vitals signs and nursing note reviewed. Constitutional: Appearance: Normal appearance. She is normal weight. HENT: Head: Normocephalic and atraumatic. Cardiovascular: Rate and Rhythm: Regular rhythm. Tachycardia present. Pulmonary: Effort: Pulmonary effort is normal. No respiratory distress. Abdominal: General: There is no distension. Palpations: Abdomen is soft. There is no mass. Tenderness: There is no abdominal tenderness. There is no guarding. Comments: Ostomy site to right side of abdomen with surrounding skin irritation. Musculoskeletal: Normal range of motion. Skin: General: Skin is warm and dry. Neurological: General: No focal deficit present. Mental Status: She is alert. Radiology: No results found for this visit on 10/01/20. Lab Results (24h): Recent Results (from the past 24 hour(s)) CBC with Differential Collection Time: 10/01/20 11:19 PM Result Value Ref Range WBC 5.84 4.30 - 11.10 10*3/L RBC 4.74 3.93 - 5.25 10*6/L HGB 14.1 11.6 - 15.0 g/dL HCT 43.7 35.7 - 45.2 % MCV 92.2 80.6 - 95.5 fL MCH 29.7 25.9 - 32.8 pg MCHC 32.3 31.6 - 35.1 g/dL RDW-SD 40.6 39.0 - 49.9 fL RDW-CV 11.9 (L) 12.0 - 15.5 % PLT 503 (H) 166 - 358 10*3/L MPV 9.9 9.5 - 12.9 fL NRBC/100 WBC 0.0 0.0 - 10.0 /100 WBCs NRBC x10^3 <0.01 10*3/L GRAN MAT (NEUT) % 38.8 % IMM GRAN % 0.20 % LYMPH % 51.7 % MONO % 7.4 % EOS % 0.9 % BASO % 1.0 % GRAN MAT x10^3(ANC) 2.27 1.88 - 7.09 10*3/uL IMM GRAN x10^3 <0.03 0.00 - 0.06 10*3/uL LYMPH x10^3 3.02 1.32 - 3.29 10*3/uL MONO x10^3 0.43 0.33 - 0.92 10*3/uL EOS x10^3 0.05 0.03 - 0.39 10*3/uL BASO x10^3 0.06 0.01 - 0.07 10*3/uL Hepatic Function Panel (ALB, T.PRO, BILI T, BU/BC, ALT, AST, ALK PHOS) Collection Time: 10/01/20 11:19 PM Result Value Ref Range TOTAL BILI 1.0 0.1 - 1.1 mg/dL BILI UNCON 0.6 0.1 - 1.1 mg/dL BILI CONJ 0.0 0.0 - 0.3 mg/dL T PROTEIN 9.9 (H) 6.3 - 8.2 g/dL ALBUMIN 5.4 (H) 3.5 - 5.0 g/dL ALK PHOS 153 (H) 34 - 122 U/L ALTv 62 (H) 5 - 35 U/L AST(SGOT) 51 (H) 13 - 40 U/L Lipase Serum Collection Time: 10/01/20 11:19 PM Result Value Ref Range LIPASE 117 0 - 220 U/L Basic Metabolic Panel (NA, K, CL, CO2, GLUCOSE, BUN, CREATININE, CA) Collection Time: 10/01/20 11:19 PM Result Value Ref Range NA 135 135 - 145 mmol/L K 4.4 3.5 - 5.0 mmol/L CL 102 98 - 108 mmol/L CO2 TOTAL 19 (L) 23 - 31 mmol/L AGAP 14 2 - 16 BUN 19 7 - 23 mg/dL GLUCOSE 135 (H) 70 - 110 mg/dL CREATININE 1.19 (H) 0.50 - 1.04 mg/dL CALCIUM 11.3 (H) 8.6 - 10.6 mg/dL eGFR Calculation (Non-) 49.1 mL/min/1.73m2 eGFR Calculation () 59.5 mL/min/1.73m2 Orders and Treatments: Orders Placed This Encounter Procedures Urinalysis CBC with Differential Hepatic Function Panel (ALB, T.PRO, BILI T, BU/BC, ALT, AST, ALK PHOS) Lipase Serum Basic Metabolic Panel (NA, K, CL, CO2, GLUCOSE, BUN, CREATININE, CA) Orders Placed This Encounter Medications NaCl 0.9% (NS) bolus infusion 1,000 mL proMETHazine (PHENERGAN) 25 mg in NaCl 0.9% (NS) 50 mL piggyback ED COURSE patient presents for eval for n/v since around 1729 today. Denies sick contacts or bad food exposure. Also diarrhea that she has all the time is worse today. No blood in either. Has the colostomy bag due to sbo and resection. Is scheduled to be put back together with surgery on 10/14. Not dizzyor lightheaded. Noted to be tachycardic upon arrival. Abdomen soft and not tender. Right sided ostomy bag with stool in the bag and irritation around the ostomy site. Will give IV fluids and nausea meds. Will check labs. Anticipate discharge home later. 0005 - labs show stable creatinine compared to her most recent. Other labs ok. Patient asking for pain medications for her ostomy site irritation. States she can take morphine either with or without benadryl but with benadryl is better due to itching. Requesting to have her ostomy supplies changed. 0030 - nursing cleaned and changed her ostomy site and supplies. No evidence of infection to her ostomy site. Patient has repeatedly asked for different pain medications and is attempting to bargain to get painmedications. She has a history of drug seeking behavior and manipulative behavior to acquire the medications desired. Her allergy profile allows her to essentially have dilaudid only for pain. Although she is allergic to morphine she states she can take it with benadryl and she dose fine. States she thinks she is having pain from her liver and needs medications for that before an xray tolook at her liver. Abdomen remains soft and not tender. No vomiting noted here in the EC. Remains stable and is ok for discharge home with PCP f/u. MDM: Coding Scoring Tools: No data recorded Diagnosis/Impression: ICD-10-CM ICD-9-CM 1. Vomiting, intractability of vomiting not specified, presence of nausea not specified, unspecifiedvomiting type R11.10 787.03 Disposition/Condition: ED Disposition None Discharge Medications: Patient's Medications START taking these [...] for Pain (scale 4-6). Indications: acute pain METOPROLOL TARTRATE 25 MG TABLET Take 1 tablet by mouth 2 (two) times daily. OPIUM 10 MG/ML (MORPHINE) TINCTURE Take 1 mL by mouth every 6 (six) hours. PANTOPRAZOLE (PROTONIX) 40 MG DELAYED-RELEASE SUSPENSION Take 40 mg by mouth 2 (two) times daily. PROMETHAZINE 25 MG TABLET Take 1 tablet by mouth every 6 (six) hours as needed for Nausea and Vomiting (N/V) for up to 20 days. PSYLLIUM 3.4 GRAM PACKET Take 1 Packet by mouth 3 (three) times daily before meals for 30 days. START taking Modified Medications as Prescribed No medications on file STOP taking these medications No medications on file Follow-up: Electronically signed by: Ebony Farah DO 10/01/2020 11:19 PM R BALER documented in this encounter Miscellaneous Notes ED Nurse Note - Astrid Kowalski RN - 10/02/2020 12:22 AM CSTPatient pushed call button while the nurse Kamille was replacing her colostomy bag. Patient reports that she is hurting so bad that she almost threw up. Dr. Farah notified. D Nurse Note - Astrid Kowalski RN - 10/01/2020 11:38 PM CSTPatients iv fluids started and patient medicated for n/v per orders - see mar. Patient requesting pain medication . Dr. Farah notified. documented in this encounter Plan of Treatment Date Type Specialty Care Team Description 10/14/2020 Hospital Encounter Ambulatory Surgical Jorge Chun ma, MD Ileostomy care [address] [facility] [address] [place] [address] [phone] 10/14/2020 Surgery Surgery Precious Chun MD EXPLORATORY [address] [facility] [address] [place], [place] [id number] Health Maintenance Due Date Last Done Comments [...] Name Priority Date/Time Associated Diagnosis Comme nts URINALYSIS STAT 10/01/2020 11:22 Vomiting, Results for this PM PAPER BALER intractability of procedure are in vomiting not the results specified, presence of secti on. nausea not specified, unspecified vomiting type CBC WITH DIFF STAT 10/01/2020 11:19 Vomiting, Results fo r this PM PAPER BALER intractability of procedure are in vomiting not the results specified, presence of secti on. nausea not specified, unspecified vomiting type BASIC METABOLIC STAT 10/01/2020 11:19 Vomiting, Results for this PANEL (NA, K, CL, PM PAPER BALER intractability of proce dure are in CO2, GLUCOSE, BUN, vomiting not the resul ts CREATININE, CA) specified, presence of se ction. nausea not specified, unspecified vomiting type HEPATIC FUNCTION STAT 10/01/2020 11:19 Vomiting, Results for this PANEL (47515) PM PAPER BALER intractability of procedure are in (ALB,T.PRO,BILI vomiting not the results T,BU/BC,ALT,AST,ALK specified, presence o f section. PHOS) nausea not specified, unspecified vomiting type LIPASE STAT 10/01/2020 11:19 Vomiting, Results for this PM PAPER BALER intractability of procedure are in vomiting not the results specified, presence of secti on. nausea not specified, unspecified vomiting type CONSENT/REFUSAL FOR Routine 10/01/2020 10:45 DIAGNOSIS AND PM PAPER BALER TREATMENT documented in this encounter Results Urinalysis (10/01/2020 11:22 PM PAPER BALER) Pathologist Sig nature APPEARANCE Cloudy (A) Clear [facility] COLOR Kathleen (A) Yellow [facility] PH 5.0 4.8 - 8.0 [facility] SP GRAVITY 1.028 1.003 - 1.030 [facility] GLU U QUAL Normal Normal [facility] BLOOD 1+ (A) Negative [facility] KETONES 5 mg/dL (A) Negative [facility] PROTEIN 100 mg/dL (A) Negative [facility] UROBILIN 2.0 mg/dL (A) Normal [facility] BILIRUBIN Negative Negative [facility] NITRITE Negative Negative [facility] LEUK CHELY Negative Negative [facility] RBC/HPF 43 (H) 0 - 3 HPF [facility] WBC/HPF 2 0 - 5 HPF [facility] BACTERIA Moderate (A) Negative [facility] MUCOUS Marked (A) Negative LPF [facility] SQ EPITH 13 HPF [facility] CA OXALATE 28 (H) <=1 HPF [facility] HYAL CAST 35 (H) <=2 LPF [facility] GRAN CASTS 8 (H) <=1 LPF [facility] Specimen Urine - URINE, CLEAN CATCH Performing Organization Address City/State/Zipcode Phone Number [facility] CLIA: [id number] [place] [address] Basic Metabolic Panel (NA, K, CL, CO2, GLUCOSE, BUN, CREATININE, CA) (10/01/2020 11:19 PM PAPER BALER) NA 135 135 - 145 [facility] mmol/L [facility] K 4.4 3.5 - 5.0 [facility] mmol/L [facility] CL 102 98 - 108 mmol/L [facility] CO2 TOTAL 19 (L) 23 - 31 mmol/L [facility] AGAP 14 2 - 16 [facility] BUN 19 7 - 23 mg/dL [facility] GLUCOSE 135 (H) 70 - 110 mg/dL [facility] CREATININE 1.19 (H) 0.50 - 1.04 [facility] mg/dL [facility] CALCIUM 11.3 (H) 8.6 - 10.6 [facility] mg/dL [facility] eGFR Calculation 49.1 mL/min/1.73m2 [facility] [place]) eGFR Calculation 59.5 mL/min/1.73m2 [facility] () [facility] Specimen Blood - VENOUS Narrative Performed At Association of Glomerular Filtration Rate (GFR) [facility] and Staging of Kidney Disease* [...] tests). Performing Organization Address City/State/Zipcode Phone Number [facility] CLIA: [id number] [place] [address] Lipase Serum (10/01/2020 11:19 PM PAPER BALER) [facility] LIPASE 117 0 - 220 U/L [facility] Specimen Blood - VENOUS Performing Organization Address [facility] Phone Number [facility] CLIA: [id number] [place] [address] Hepatic Function Panel (ALB, T.PRO, BILI T, BU/BC, ALT, AST, ALK PHOS) (10/01/2020 11:19 PM PAPER BALER) [facility] TOTAL BILI 1.0 0.1 - 1.1 mg/dL [facility] BILI UNCON 0.6 0.1 - 1.1 mg/dL [facility] BILI CONJ 0.0 0.0 - 0.3 mg/dL [facility] T PROTEIN 9.9 (H) 6.3 - 8.2 g/dL [facility] ALBUMIN 5.4 (H) 3.5 - 5.0 g/dL [facility] ALK PHOS 153 (H) 34 - 122 U/L [facility] ALTv 62 (H) 5 - 35 U/L [facility] AST(SGOT) 51 (H) 13 - 40 U/L [facility] Specimen Blood - VENOUS Performing Organization Address [facility]/Zipcode Phone Number [facility] CLIA: [id number] [place] [address] LABORATORY [address] [facility] CBC with Differential (10/01/2020 11:19 PM PAPER BALER) [facility] WBC 5.84 4.30 - 11.10 [facility] 10*3/L HOSPITAL LAB[facility]ATORY RBC 4.74 3.93 - 5.25 [facility] 10*6/L [facility] HGB 14.1 11.6 - 15.0 [facility] g/dL [facility] HCT 43.7 35.7 - 45.2 % [facility] MCV 92.2 80.6 - 95.5 fL [facility] MCH 29.7 25.9 - 32.8 pg [facility] MCHC 32.3 31.6 - 35.1 [facility] g/dL [facility] RDW-SD 40.6 39.0 - 49.9 fL [facility] RDW-CV 11.9 (L) 12.0 - 15.5 % [facility] PLT 503 (H) 166 - 358 [facility] 10*3/L HOSPITAL LAB[facility]ATORY MPV 9.9 9.5 - 12.9 fL [facility] NRBC/100 WBC 0.0 0.0 - 10.0 /100 [facility] WBCs [facility] NRBC x10^3 <0.01 10*3/L [facility] GRAN MAT (NEUT) % 38.8 % [facility] IMM GRAN % 0.20 % [facility] LYMPH % 51.7 % [facility] MONO % 7.4 % [facility] EOS % 0.9 % [facility] BASO % 1.0 % [facility] GRAN MAT x10^3(ANC) 2.27 1.88 - 7.09 [facility] 10*3/uL [facility] IMM GRAN x10^3 <0.03 0.00 - 0.06 [facility] 10*3/uL [facility] LYMPH x10^3 3.02 1.32 - 3.29 [facility] 10*3/uL [facility] MONO x10^3 0.43 0.33 - 0.92 [facility] 10*3/uL [facility] EOS x10^3 0.05 0.03 - 0.39 [facility] 10*3/uL [facility]OSPITAL [facility] BASO x10^3 0.06 0.01 - 0.07 [facility] 10*3/uL [facility] Specimen Blood - VENOUS Performing Organization Address City/State/Zipcode Phone Number [facility] CLIA: [id number] [place] [address] documented in this encounter Visit Diagnoses Diagnosis Ileostomy care - Primary Attention to ileostomy Vomiting, intractability of vomiting not specified, presence of nausea not specified, unspecified vomiting type - Primary Drug-seeking behavior Other, mixed, or unspecified nondependen t drug abuse, unspecified Ileostomy care Attention to ileostomy documented in this encounter Administered Medications Medication Order MAR Action Action Date Dose Rate Site NaCl 0.9% (NS) bolus New Bag 10/01/2020 11:36 PM PAPER BALER 1,000 mL 99 9 mL/hr infusion 1,000 mL at 999 mL/hr, 1,000 mL, IV Infusion, ONCE, 1 dose, 10/01/20 at 2330, LUISA proMETHazine (PHENERGAN) 25 mg in NaCl 0.9% Given 10/02/2020 12:30 AM PAPER BALER 25 mg (NS) 50 mL piggyback 25 mg, IV Piggyback, ONCE, 1 dose, 10/02/20 at 0030, 50 mL documented in this encounter Additional Health Concerns Infection Onset Date Last Indicated Resolved Time COVID-19 Rule Out 09/25/2020 09/25/2020 documented as of this encounter Insurance Payer Benefit Plan / Subscriber ID Effective Phone Address T ype Group Dates MEDICAID MEDICAID SSI PENDING 2020-Pre [address] P[place] [address] documented as of this encounter
--- OUTSIDE RECORDS SUMMARY | 2020-10-24 07:02 | XMS REPORT | Summary of Care ---
:1975 Author Organization [facility] - [facility] Address [address] [place] [address] Care Team Providers Name Role Phone Pcp, Does Not Have A Primary Care Provider Annmarie Ramirez application integration specialist Yen Fuentes TRIAL EXAMINER Shade Cloth Finisher Unavailable Reason for Visit Reason Comments Talk To Nurse Encounter Details Date Type Department Care Team Description 09/30/2020 Telephone [facility] Cancer Precious Chun MD Talk To Nurse Center-[facility]orectal [facility] [address] [facility] 22[address] [facility], [facility] 2.1 [address] [place] [address] [place] [phone] Allergies Active Allergy Reactions [...] Added automatically from request for kamilah domingo [id number] Acute renal failure 09/25/2020 Renal failure 09/25/2020 E44.0 Moderate protein calorie malnutrition 09/25/2020 JULIAN (acute kidney injury) 09/13/2020 Abdominal pain 09/04/2020 Abdominal pain, generalized 09/03/2020 Overview: Added automatically from request for kamilah domingo [id number] SBO (small bowel obstruction) 07/24/2020 Crohn's disease of colon with complication 07/23/2020 Overview: Added automatically from request for kamilah lane [id number] Sinus tachycardia 08/23/2019 Pneumonia 08/18/2019 Drug-seeking behavior [...] with No / Unsure 10/01/2020 10:51 PM FISHING VESSEL CAPTAIN someone who was confirmed or suspected to have Coronavirus / COVID-19? documented as of this encounter Last Filed Vital Signs Not on filedocumented in this encounter Miscellaneous Notes Telephone Encounter - Ami Hunter RN - 10/02/2020 8:11 AM CSTPatient seen in ED on 10/01/2020 - see notes. Ami Hunter RN ING VESSEL CAPTAIN Telephone Encounter - Barney Carmen V - 10/01/2020 10:13 AM CSTReturned patient's [...] offered for patient to speak with our TELEGRAPHIC SERVICE DISPATCHER to address any questions or concerns--patient declined. Patient stated that the Morphine Tincture that was prescribed to her at last visit is too expensive. Patient stated that the medication will cost $253.00. Patient would like to know if there is any alternative treatment for her. Patient does not mind speaking with the TELEGRAPHIC SERVICE DISPATCHER to discuss the medication only. Will route message to MD. elephone Encounter - Danielle Bain - 09/30/2020 1:34 PM CSTPatient has questions regarding her surgery documented in this encounter Plan of Treatment Date Type Specialty Care Team Description 10/14/2020 Hospital Encounter Ambulatory Surgical Jorge Chun ma, MD Ileostomy care 2280 [facility] [address] [place], [place] [phone] 10/14/2020 Surgery Surgery Precious Chun MD EXPLORATORY 2280 [facility] [address] [place] [address] Health Maintenance Due Date Last [...] ty Pending PENDING PENDING sent NIYAH Kern [phone] documented as of this encounter
--- OUTSIDE RECORDS SUMMARY | 2020-10-24 07:03 | XMS REPORT | Summary of Care ---
:1975 Author Organization [facility] - [facility] Address [address] [place] [address] Care Team Providers Name Role Phone Pcp, Does Not Have A Primary Care Provider Annmarie Ramirez organ tuner electronic Yen Fuentes DX BOARD OPERATOR Loan Auditor Unavailable Reason for Visit Reason Comments Talk To Nurse Encounter Details Date Type Department Care Team Description 09/30/2020 Telephone [facility] Cancer Preciosu Chun MD Talk To Nurse Center-Colorectal [facility] 2280 [facility] 2280 [facility], [facility] 2.1 [address] [place] [address] [place] [phone] Allergies Active Allergy Reactions [...] Added automatically from request for kamilah domingo [id number] Acute renal failure 09/25/2020 Renal failure 09/25/2020 E44.0 Moderate protein calorie malnutrition 09/25/2020 JULIAN (acute kidney injury) 09/13/2020 Abdominal pain 09/04/2020 Abdominal pain, generalized 09/03/2020 Overview: Added automatically from request for kamilah domingo [id number] SBO (small bowel obstruction) 07/24/2020 Crohn's disease of colon with complication 07/23/2020 Overview: Added automatically from request for kamilah lane [id number] Sinus tachycardia 08/23/2019 Pneumonia 08/18/2019 Drug-seeking behavior [...] with No / Unsure 10/01/2020 10:51 PM BENCHROOM SHOP OPTICIAN someone who was confirmed or suspected to have Coronavirus / COVID-19? documented as of this encounter Last Filed Vital Signs Not on filedocumented in this encounter Miscellaneous Notes Telephone Encounter - Ami Hunter RN - 10/02/2020 3:25 PM CSTCalled patient, reports skin irritation has increased, but she has received pain medication from ED visit 10/01/2020. Educated patient on using imodium 2 tablets 4 times daily and metamucil TID, as alternative for notbeing able to afford medication prescribed. Informed patient to increase electrolytes with Pedialyte and/or Gatorade to prevent dehydration. Patient verbalized understanding. Denies any additional questions or concerns at this time. Will call office with any additional questions or concerns. Also reports she has spoken to indigent team and has submitted her information. Informed Dr. Chun is aware and submitted her surgery as medically necessary. Ami Hunter RN elephone Encounter - Ami Hunter RN - 10/02/2020 8:11 AM BENCHROOM SHOP OPTICIAN Patient seen in ED on 10/01/2020 - see notes. Ami M Dale, RN HROOM SHOP OPTICIAN Telephone Encounter - Carmen Corley V - [...] offered for patient to speak with our MARKETING REPRESENTATIVE to address any questions or concerns--patient declined. Patient stated that the Morphine Tincture that was prescribed to her at last visit is too expensive. Patient stated that the medication will cost $253.00. Patient would like to know if there is any alternative treatment for her. Patient does not mind speaking with the MARKETING REPRESENTATIVE to discuss the medication only. Will route message to MD. elephone Encounter - Danielle Bain - 09/30/2020 1:34 PM CSTPatient has questions regarding her surgery documented in this encounter Plan of Treatment Date Type Specialty Care Team Description 10/14/2020 Hospital Encounter Ambulatory Surgical Jorge Chun ma, MD Ileostomy care [address] [facility] [address] [place] [address] [phone] 10/14/2020 Surgery Surgery Precious Chun MD EXPLORATORY 2280 [facility] [address] [place] [address] [phone] Health Maintenance Due Date Last Done Comments [...] Universi ty Pending [place] [phone] documented as of this encounter
--- OUTSIDE RECORDS SUMMARY | 2020-10-24 07:04 | XMS REPORT | Summary of Care ---
:1975 Author Organization [facility] - [facility] Address [address] [place] [address] Care Team Providers Name Role Phone Pcp, Does Not Have A Primary Care Provider Annmarie Ramirez irrigation system operator Yen Fuentes Cake Maker Unavailable Reason for Visit Reason Comments Follow-up Forms Encounter Details Date Type Department Care Team Description 10/07/2020 Patient Outreach [facility] Deepika Ramirez RN Follow-up; [address] [address] Allergies Active Allergy Reactions Severity [...] as of this encounter (statuses as of 10/07/2020) Medications Medication Sig Dispensed Refills Start Date [...] as of this encounter (statuses as of 10/07/2020) Active Problems Problem Noted Date Ileostomy care 09/27/2020 Overview: Added automatically from request for kamilah domingo [id number] Acute renal failure 09/25/2020 Renal failure 09/25/2020 E44.0 Moderate protein calorie malnutrition 09/25/2020 JULIAN (acute kidney injury) 09/13/2020 Abdominal pain 09/04/2020 Abdominal pain, generalized 09/03/2020 Overview: Added automatically from request for kamilah domingo [id number] SBO (small bowel obstruction) 07/24/2020 Crohn's disease of colon with complication 07/23/2020 Overview: Added automatically from request for kamilah lane [id number] Sinus tachycardia 08/23/2019 Pneumonia 08/18/2019 Drug-seeking behavior 03/10/2019 Multifocal pneumonia 01/24/2018 Dehydration 01/05/2018 IBS (irritable bowel syndrome) 10/02/2011 Depression 10/02/2011 documented as of this encounter (statuses as of 10/07/2020) Social History Tobacco Use Types Packs/Day Years [...] with No / Unsure 10/01/2020 10:51 PM MMI TEACHER someone who was confirmed or suspected to have Coronavirus / COVID-19? documented as of this encounter Last Filed Vital Signs Not on filedocumented in this encounter Progress Notes Deepika Ramirez RN - 10/07/2020 2:22 PM CSTSummary: [facility] F/U Pt stated she has decided to remain in [place]. She has changed her address on her ID. She is scheduled for urgent surgery on 10/14/20 ex lap. She will call for assistance to complete [place] Indigent application. BITA Thapa, RN, [facility] Outpatient Application Programmer AnalystMarine Resource Economist [facility] O: [phone] M: [phone] documented in this encounter Plan of Treatment Date Type Specialty Care Team Description 2020 Laboratory Only Clinical Medical Only, Adc Test Laboratory 10/14/2020 Hospital Encounter Ambulatory Surgical Jorge Chun ma, MD Ileostomy care 2280 [facility] [address] [place] [address] [phone] 10/14/2020 Surgery Surgery Precious Chun MD EXPLORATORY 2280 [facility] [address] [place] [address] [phone] Health Maintenance Due Date Last Done Comments [...] ty Pending PENDING PENDING sent NIYAH Kern [phone] documented as of this encounter
--- OUTSIDE RECORDS SUMMARY | 2020-10-24 07:05 | XMS REPORT | Summary of Care ---
:1975 Author Organization [facility] - [facility] Address [address] [place] [address] Care Team Providers Name Role Phone Pcp, Does Not Have A Primary Care Provider Annmarie Ramirez window shade cloth sewer Yen Fuentes CHIEF DIGITAL OFFICER Solder Deposit Operator Unavailable Reason for Visit Reason Comments LAB WORK Encounter Details Date Type Department Care Team Description 2020 Laboratory Only [facility] Precious Chun MD 2280 [facility] [address] [place] [address] [phone] Preop testing (Primary Dx); Phlebotomy Only, Adc Test Exposure to SARS-associated coronavirus Lab-[address] [phone] Allergies Active Allergy Reactions Severity Noted Date [...] as of this encounter (statuses as of 2020) Medications Medication Sig Dispensed Refills Start Date [...] for Pain (scale 4-6). Indications: acute pain psyllium 3.4 gram Take 1 Packet by [...] as of this encounter (statuses as of 2020) Active Problems Problem Noted Date Ileostomy care 09/27/2020 Overview: Added automatically from request for kamilah lane [id number] Acute renal failure 09/25/2020 Renal failure 09/25/2020 E44.0 Moderate protein calorie malnutrition 09/25/2020 JULIAN (acute kidney injury) 09/13/2020 Abdominal pain 09/04/2020 Abdominal pain, generalized 09/03/2020 Overview: Added automatically from request for kamilah lane [id number] SBO (small bowel obstruction) 07/24/2020 Crohn's disease of colon with complication 07/23/2020 Overview: Added automatically from request for kamilah lane [id number] Sinus tachycardia 08/23/2019 Pneumonia 08/18/2019 Drug-seeking behavior 03/10/2019 Multifocal pneumonia 01/24/2018 Dehydration 01/05/2018 IBS (irritable bowel syndrome) 10/02/2011 Depression 10/02/2011 documented as of this encounter (statuses as of 2020) Social History Tobacco Use Types Packs/Day Years [...] been in contact with No / Unsure 10/07/2020 4:42 PM STAFF DEVELOPMENT MANAGER someone who was confirmed or suspected to have Coronavirus / COVID-19? documented as of this encounter Last Filed Vital Signs Not on filedocumented in this encounter Nursing Notes Milla Wilkerson - 2020 2:45 PM CSTCovid swab collected. documented in this encounter Plan of Treatment Date Type Specialty Care Team Description 10/14/2020 Hospital Encounter Ambulatory Precious Chun MD Ileostomy care Surgical [address] [place] [address] [address] [place], [place] [phone] 10/14/2020 Anesthesia Event Surgery Seb Espinoza, [address] [place] [phone] 10/14/2020 Surgery Surgery Precious Chun MD EXPLORATORY 2280 [facility] [address] [place] [address] Name Type Priority Associated Diagnoses Date/Ti me COVID-19 (ID NOW RAPID LAB Routine Preop testing 09/16 3:03 PM STAFF DEVELOPMENT MANAGER TESTING) Name Type Priority Associated Diagnoses Order S cam COVID-19 (ID NOW RAPID LAB Routine Preop testing Expe cted: 2020, TESTING) Expires: 2020 Health Maintenance Due Date Last Done Comments [...] Ileostomy care - Primary Attention to ileostomy Preop testing - Primary Preoperative examination, unspecified Exposure to SARS-associated coronavirus Ileostomy care Attention to ileostomy documented in this encounter Additional Health Concerns Infection Onset Date Last Indicated Resolved Time COVID-19 Rule Out 2020 2020 documented as of this encounter Insurance Payer Benefit Plan / Subscriber ID Effective Phone Address T ype Group Dates MEDICAID MEDICAID SSI PENDING 2020-Pre 301 Universi ty Pending [place] [address] documented as of this encounter
--- OUTSIDE RECORDS SUMMARY | 2020-10-24 07:05 | XMS REPORT | Summary of Care ---
:1975 Author Organization [facility] - [facility] Address [address] [place] [address] Care Team Providers Name Role Phone Pcp, Does Not Have A Primary Care Provider Annmarie Ramirez sewer digger Yen Fuentes Sort Operations Supervisor Unavailable Reason for Visit Reason Comments Follow-up Forms Encounter Details Date Type Department Care Team Description 10/07/2020 Patient Outreach [facility] Deepika Ramirez RN Follow-up; [address] [address] Allergies Active Allergy Reactions [...] Added automatically from request for kamilah domingo [id number] Acute renal failure 09/25/2020 Renal failure 09/25/2020 E44.0 Moderate protein calorie malnutrition 09/25/2020 JULIAN (acute kidney injury) 09/13/2020 Abdominal pain 09/04/2020 Abdominal pain, generalized 09/03/2020 Overview: Added automatically from request for kamilah domingo [id number] SBO (small bowel obstruction) 07/24/2020 Crohn's disease of colon with complication 07/23/2020 Overview: Added automatically from request for kamilah lane [id number] Sinus tachycardia 08/23/2019 Pneumonia 08/18/2019 Drug-seeking behavior [...] with No / Unsure 10/07/2020 4:42 PM MEDICAL TECHNICIANS someone who was confirmed or suspected to have Coronavirus / COVID-19? documented as of this encounter Last Filed Vital Signs Not on filedocumented in this encounter Progress Notes Deepika Ramirez RN - 10/07/2020 2:22 PM CSTSummary: Follow up on Indigent Application. Pt did not return the call to for assistance for her application. will call the patient on 10/08/20. BITA Thapa, RN, [facility] Outpatient Second Vp Hr AssessmentMud LoggerCone Health [facility] Hospital O: [phone] M: [phone] iDeepika crystal RN - 10/07/2020 2:22 PM CSTSummary: [facility] F/U Pt stated she has decided to remain in [place]. She has changed her address on her ID. She is scheduled for urgent surgery on 10/14/20 ex lap. She will call for assistance to complete [place] Indigent application. BITA Thapa, RN, [facility] Outpatient Second Vp Hr AssessmentMud LoggerC[facility] Health [facility] Hospital O: [phone] M: [phone] documented in this encounter Plan of Treatment Date Type Specialty Care Team Description 2020 Laboratory Only Clinical Medical Only, Adc Test Laboratory 10/14/2020 Hospital Encounter Ambulatory Surgical Jorge Chun ma, MD Ileostomy care 2280 [facility] [address] [place], [place] [phone] 10/14/2020 Surgery Surgery Precious Chun MD EXPLORATORY [address] [facility] [address] [place], [place] [address] Health Maintenance Due Date Last Done Comments [...] Universi ty Pending PENDING [place] [phone] documented as of this encounter
--- OUTSIDE RECORDS SUMMARY | 2020-10-24 07:05 | XMS REPORT | Summary of Care ---
:1975 Author Organization [facility] - [facility] Address [address] [place] [address] Care Team Providers Name Role Phone Pcp, Does Not Have A Primary Care Provider Annmarie Ramirez church history teacher Yen Fuentes ASSOCIATE JAVA DEVELOPER Card Feeder Unavailable Encounter Details Date Type Department Care Team Description 10/14/2020 Orders Only [facility] Doctor Unassigned, No 301 [facility] [place] [address] [address] [place] [address] Allergies Active Allergy Reactions Severity Noted Date [...] as of this encounter (statuses as of 10/14/2020) Medications Medication Sig Dispensed Refills Start Date [...] as of this encounter (statuses as of 10/14/2020) Active Problems Problem Noted Date Ileostomy care 09/27/2020 Overview: Added automatically from request for kamilah domingo [id number] Acute renal failure 09/25/2020 Renal failure 09/25/2020 E44.0 Moderate protein calorie malnutrition 09/25/2020 JULIAN (acute kidney injury) 09/13/2020 Abdominal pain 09/04/2020 Abdominal pain, generalized 09/03/2020 Overview: Added automatically from request for kamilah domingo [id number] SBO (small bowel obstruction) 07/24/2020 Crohn's disease of colon with complication 07/23/2020 Overview: Added automatically from request for kamilah domingo [id number] Sinus tachycardia 08/23/2019 Pneumonia 08/18/2019 Drug-seeking behavior 03/10/2019 Multifocal pneumonia 01/24/2018 Dehydration 01/05/2018 IBS (irritable bowel syndrome) 10/02/2011 Depression 10/02/2011 documented as of this encounter (statuses as of 10/14/2020) Social History Tobacco Use Types Packs/Day Years [...] with No / Unsure 10/07/2020 4:42 PM MECHANICAL DEVELOPER PROVER someone who was confirmed or suspected to have Coronavirus / COVID-19? documented as of this encounter Last Filed Vital Signs Not on filedocumented in this encounter Plan of Treatment Health [...] Name Priority Date/Time Associated Diagnosis Comme nts ASSIGNMENT OF BENEFITS Routine 10/14/2020 5:29 AM MECHANICAL DEVELOPER PROVER documented in this encounter Results Not on filedocumented in this encounter Insurance Payer Benefit Plan / Subscriber ID Effective Phone Address T ype Group Dates MEDICAID MEDICAID SSI PENDING 2020-Pre 301 Universi ty P[place] [address] documented as of this encounter
--- OUTSIDE RECORDS SUMMARY | 2020-10-24 07:06 | XMS REPORT | Summary of Care ---
:1975 Author Organization [facility] - [facility] Address [address] [place] [address] Care Team Providers Name Role Phone Pcp, Does Not Have A Primary Care Provider Annmarie Ramirez RNpenetration tester Yen Fuentes Dry Pan Feeder Unavailable Reason for Visit Reason Comments Follow-up Assessment Forms Encounter Details Date Type Department Care Team Description 10/16/2020 Patient Outreach [facility] Deepika Ramirez RN Follow-up; [address] Assessment ; Forms [place], [place] [address] Allergies Active Allergy Reactions [...] as of this encounter (statuses as of 10/16/2020) Medications Medication Sig Dispensed Refills Start Date End Date Status ALPRAZolam (XANAX) 2 Take 2 mg by 0 Suspended mg tablet mouth 2 (two) times daily. Pantoprazole Take 40 mg by 0 Alejandra pended (PROTONIX) 40 mg mouth 2 (two) delayed-release times daily. suspension metoprolol tartrate 25 Take 1 tablet 60 tablet 0 08/24/2019 Suspended mg tabletIndications: by mouth 2 Tachycardia (two) times daily. Additional Information acetaminophen 325 mg Take 2 tablets 50 tablet 1 08/01/2020 Suspended tabletIndications: SBO by mouth every (small bowel obstruction) 6 (six) hours. Additional Information HYDROcodone-acetaminophen 5-325 Take 1 tablet by 14 tablet 0 1 11/18/2019 Suspended mg tabletIndications: acute pain mouth every 6 (six) hours as needed for Pain (scale 4-6). Indications: acute pain Additional Information psyllium 3.4 gram Take 1 Packet 90 Packet 0 09/27/2020 020 Suspended packetIndications: Chest by mouth 3 pain, unspecified type (three) times daily before meals for 30 days. Additional Information opium 10 mg/mL (morphine) Take 1 mL by mouth 1 Bottle 0 09/27 Suspended tinctureIndications: Ileostomy every 6 (six) care hours. Additional Information acetaminophen-codeine Take 1 tablet by 30 tablet 0 10/02/2020 Suspended (TYLENOL-CODEINE #3) 300-30 mg mouth every 4 (four) tabletIndications: chronic hours as needed for pain Pain (scale 1-3). Indications: chronic pain Additional Information documented as of this encounter (statuses as of 10/16/2020) Active Problems Problem Noted Date Elective surgery 10/14/2020 Ileostomy care 09/27/2020 Overview: Added automatically from request for kamilah domingo [id number] Acute renal failure 09/25/2020 Renal failure 09/25/2020 E44.0 Moderate protein calorie malnutrition 09/25/2020 JULIAN (acute kidney injury) 09/13/2020 Abdominal pain 09/04/2020 Abdominal pain, generalized 09/03/2020 Overview: Added automatically from request for kamilah domingo [id number] SBO (small bowel obstruction) 07/24/2020 Crohn's disease of colon with complication 07/23/2020 Overview: Added automatically from request for kamilah domingo [id number] Sinus tachycardia 08/23/2019 Pneumonia 08/18/2019 Drug-seeking behavior 03/10/2019 Multifocal pneumonia 01/24/2018 Dehydration 01/05/2018 IBS (irritable bowel syndrome) 10/02/2011 Depression 10/02/2011 documented as of this encounter (statuses as of 10/16/2020) Social History Tobacco Use Types Packs/Day Years [...] been in contact with No / Unsure 10/14/2020 12:49 PM GLASS FORMING ENGINEER someone who was confirmed or suspected to have Coronavirus / COVID-19? documented as of this encounter Last Filed Vital Signs Not on filedocumented in this encounter Progress Notes Deepika Ramirez RN - 10/16/2020 10:57 AM CSTSummary: CHP surgery follow up CHP CM contacted patient to f/u after surgery. Pt reports she is still having pain. She is aware she needs to pass gas and stool. CM suggested to patient to be patient and to increase her activity and walking around the room. The patient mentioned she has the application with her. CM suggested she has the SW to come and assist as needed once she is feeling better. CM will continue to follow up with patient's progress. BITA Thapa, RN, [facility] Outpatient Technician Terminal And RepeaterKeeper HelperAmerican Healthcare Systems O: [phone] M: [phone] documented in this encounter Plan of Treatment Health Maintenance Due Date Last Done Comments PNEUMOCOCCAL 0-64 YEARS COMBINED SERIES (1 1980 of 3 - PCV13) DTaP,Tdap,and Td Vaccines (1 - Tdap) 1993 PAP SMEAR 07/28/2014 07/28/2011 Breast Cancer Screening (MAMMOGRAM) 2014 INFLUENZA VACCINE (#1) 2020 Depression Screening 10/14/2021 10/14/2020 COLON CANCER SCREENING ANNUAL FIT/FOBT 2024 9, 01/05/2018 COLONOSCOPY 09/10/2030 09/10/2020 Colorectal Cancer Screening 09/10/2030 documented as of this encounter Results Not on filedocumented in this encounter Insurance Payer Benefit Plan / Subscriber ID Effective Phone Address T ype Group Dates MEDICAID MEDICAID SSI PENDING 2020-Pre 301 Universi ty Pending [place] [address] documented as of this encounter
[2020-10-24 07:07] LABS: Absolute Lymphocytes (CBC) 2.3 K/uL (0.7-4.9); Basophils % 0.8 % (0-1.3); Hematocrit 29.9 % (36.0-45.0); Lymphocytes % 30.7 % (15.3-44.8); MPV 7.6 fL (7.6-11.3); RBC Red Blood Cell Count 3.28 M/uL (3.86-4.86)
--- OUTSIDE RECORDS SUMMARY | 2020-10-24 07:07 | XMS REPORT | Summary of Care ---
:1975 Author Organization [facility] Address [address] [place] [address] Care Team Providers Name Role Phone Pcp, Does Not Have A Primary Care Provider Annmarie Ramirez production dispatcher Yne Fuentes GAUGER CHIEF DELIVERY Timekeeper Unavailable Reason for Referral (Routine) Status Reason Specialty Diagnoses / Referred By Referred To Procedures Contact Contact New Request CRS-COLON & Diagnoses Crohn's disease of colon with complication Precious Chun MD RECTAL SURGERY Procedures Discharge Follow-Up: Specialty Service CRS-COLON & RECTAL SURGERY; 2 Weeks [address] [facility] [address] [place] [address] Reason for Visit Auth/Cert Status Reason Specialty Diagnoses / Referred By Referred To Procedures Contact Contact Ambulatory Surgical Diagnoses Ileostomy care [Z43.2] Jaja Dsu Procedures NM EXPLORATORY OF ABDOMEN NM CLOSE ENTEROSTOMY EXPLORATORY LAPAROTOMY ILEOSTOMY TAKEDOWN [address] [place] [address] Encounter Details Date Type Department Care Team Description 10/14/2020 - Hospital Encounter [facility] (Precious Langford MD Ileostomy care 10/19/2020 11C) [address] [facility] [address] [place] [address] [place] [address] [place] [address] [phone] Allergies Active Allergy Reactions Severity Noted Date [...] as of this encounter (statuses as of 10/19/2020) Medications Medication Sig Dispensed Refills Start Date End Date Status Pantoprazole Take 40 mg by 0 Act pasha (PROTONIX) 40 mg mouth 2 (two) delayed-release times daily. suspension metoprolol Take 1 tablet 60 tablet 0 08/24/2019 Acti ve tartrate 25 mg by mouth 2 tabletIndications: (two) times Tachycardia daily. acetaminophen 325 Take 2 50 tablet 1 08/01/2020 A ctive mg tablets by 1 tabletIndications: mouth every 6 SBO (small bowel (six) hours. obstruction) HYDROcodone-acetam Take 1 tablet 14 tablet 0 09/18/2020 Active inophen 5-325 mg by mouth tabletIndications: every 6 (six) acute pain hours as needed for Pain (scale 4-6). Indications: acute pain psyllium 3.4 gram Take 1 Packet 90 Packet 0 09/27/2020 02 Active packetIndications: by mouth 3 0 Chest pain, (three) times unspecified type daily before meals for 30 days. opium 10 mg/mL Take 1 mL by 1 Bottle 0 09/27/2020 A ctive (morphine) mouth every 6 tinctureIndication (six) hours. s: Ileostomy care HYDROcodone-acetam Take 1 tablet 20 tablet 0 10/19/2020 Active inophen (NORCO) by mouth 10-325 mg every 6 (six) tabletIndications: hours as acute pain needed for Pain (scale 7-10). Indications: acute pain ibuprofen 600 mg Take 1 tablet 30 tablet 0 10/19/2020 Active tabletIndications: by mouth Crohn's disease of every 6 (six) colon with hours as complication needed for Pain (scale 1-3). simethicone 80 mg Take 1 tablet 20 tablet 0 10/19/2020 02 Active chewable by mouth 0 tabletIndications: after meals Crohn's disease of and at colon with bedtime for 5 complication days. gabapentin 300 mg Take 1 42 capsule 0 10/19/2020 Active capsuleIndications capsule by 0 : Crohn's disease mouth 3 of colon with (three) times complication daily for 14 days. ALPRAZolam 2 mg Take 1 tablet 14 tablet 0 10/19/2020 Active tabletIndications: by mouth 2 0 Crohn's disease of (two) times colon with daily for 7 complication days. proMETHazine 25 mg Take 1 tablet 21 tablet 0 10/19/2020 Active tabletIndications: by mouth Crohn's disease of every 8 colon with (eight) hours complication as needed for Nausea and Vomiting (N/V). ALPRAZolam (XANAX) Take 2 mg by 0 10/19/20 2 Discontinued 2 mg tablet mouth 2 (two) 0 (Reo rder) times daily. proMETHazine 25 mg Take 1 tablet 24 tablet 0 09/18/2020 tabletIndications: by mouth 0 Generalized every 6 (six) abdominal pain hours as needed for Nausea and Vomiting (N/V) for up to 20 days. proMETHazine 25 mg Take 1 tablet 42 tablet 0 10/19/2020 Discontinued tabletIndications: by mouth 0 ( Reorder) Crohn's disease of every 4 colon with (four) hours complication as needed for Nausea and Vomiting (N/V) for up to 7 days. documented as of this encounter (statuses as of 10/19/2020) Active Problems Problem Noted Date Elective surgery 10/14/2020 Ileostomy care 09/27/2020 Overview: Added automatically from request for kamilah domingo [id number] Acute renal failure 09/25/2020 Renal failure 09/25/2020 E44.0 Moderate protein calorie malnutrition 09/25/2020 JULIAN (acute kidney injury) 09/13/2020 Abdominal pain 09/04/2020 Abdominal pain, generalized 09/03/2020 Overview: Added automatically from request for kamilah lane [id number] SBO (small bowel obstruction) 07/24/2020 Crohn's disease of colon with complication 07/23/2020 Overview: Added automatically from request for kamilah lane [id number] Sinus tachycardia 08/23/2019 Pneumonia 08/18/2019 Drug-seeking behavior 03/10/2019 Multifocal pneumonia 01/24/2018 Dehydration 01/05/2018 IBS (irritable bowel syndrome) 10/02/2011 Depression 10/02/2011 documented as of this encounter (statuses as of 10/19/2020) Social History Tobacco Use Types Packs/Day Years [...] with No / Unsure 10/14/2020 12:49 PM [employer] someone who was confirmed or suspected to have Coronavirus / COVID-19? documented as of this encounter Last Filed Vital Signs Vital Sign Reading Time Taken Comments Blood Pressure 92/63 10/19/2020 1:08 PM [employer] Pulse 98 10/19/2020 1:08 PM [employer] Temperature 36.2 C (97.1 F) 10/19/2020 1:08 PM [employer] Respiratory Rate 18 10/19/2020 1:08 PM [employer] Oxygen Saturation 100% 10/19/2020 1:08 PM [employer] Inhaled Oxygen Concentration - - Weight 55.1 kg (121 lb 7.6 oz) 10/14/2020 6:21 AM [employer] Height 170.2 cm (5' 7") 10/14/2020 6:21 AM [employer] Body Mass Index 19.03 10/14/2020 6:21 AM [employer] documented in this encounter Discharge Instructions AttachmentsThe following attachments cannot be sent through Care Everywhere. Crohn's Disease ([place] Citizen)Colon, How it Works ([place] Citizen)Crohn's Disease, Discharge Instructions for ([place] Citizen)Pain, Acute, Uncertain Cause ([place] Citizen)Pain, Communicating About ([place] Citizen)Pain, Understanding Chronic ([place] Citizen)Alprazolam tablets ([place] Citizen)Gabapentin capsules or tablets ([place] Citizen)Acetaminophen; Hydrocodone tablets or capsules ([place] Citizen)Ibuprofen tablets and capsules ([place] Citizen)Promethazine tablets ([place] Citizen)Simethicone chewable tablets ([place] Citizen) documented in this encounter Progress Notes Kelsey Wilson RD - 10/18/2020 12:09 PM CST Medical Nutrition Therapy- Progress Note: History of Present Illness Patient admitted due to high ileostomy output, N/V with food intolerance, dehydration. Patient requesting ileostomy closure. Patient now s/p Ileostomy take down with bowel resection and anastomosis.Continues to be hospitalized due to need for pain control, postoperative management and return of bowelfunction. PMH/PSH: Past Medical History: Diagnosis Date Crohn disease Drug-seeking behavior 03/04/2019 Please avoid using narcotics IBS (irritable bowel syndrome) Past Surgical History: Procedure Laterality Date SECTION X 2 EXPLORATORY LAPAROTOMY N/A 10/14/2020 Surgeon: Precious Chun MD; Location: [facility] FLEXIBLE SIGMOIDOSCOPY (SHX) N/A 09/10/2020 Surgeon: Mariana Allen MD; Location: [facility] Location HYSTERECTOMY 2010 ILEOCECECTOMY N/A 07/25/2020 Surgeon: Precious Chun MD; Location: [facility] ILEOSTOMY N/A 07/25/2020 Surgeon: Precious Chun MD; Location: [facility] ILEOSTOMY TAKEDOWN Right 10/14/2020 Surgeon: Precious Chun MD ILEOSTOMY TAKEDOWN N/A 10/14/2020 Surgeon: Precious Chun MD; Location: [facility] TUBAL LIGATION 1996 [facility] noted. GI and Nutrition Related Findings: Symptoms: Diarrhea and Abdominal Pain Difficulty: N/A GI tract alteration: Ostomy and Resection Alternative means of nutrition: N/A General: N/A Medications: I have reviewed the medications currently ordered in the EMR located under the medications andMAR tabs. Current medications include: Current Facility-Administered Medications: ALPRAZolam (XANAX) tablet 0.25 mg, 0.25 mg, Oral, BID, Precious Chun MD, 0.25 mg at 10/18/20 0852 HYDROcodone-acetaminophen (HYCET) 7.5-325 mg/15 mL solution 5 mg, 5 mg, Oral, Q4H, Precious Chun MD, 5 mg at 10/18/20 0852 HYDROmorphone (DILAUDID) injection 1 mg, 1 mg, Slow IV Push, Q6HPRN, Precious Chun MD, 1 mg at 10/18/20 1009 acetaminophen (TYLENOL) 160 mg/5 mL liquid 500 mg, 500 mg, Oral, Q6H, Judy Flores MD, Stopped at 10/17/20 0000 bisacodyL (DULCOLAX) suppository 10 mg, 10 mg, Rectal, QHSPRN, Smetana, Amy, DO ibuprofen (IBU) tablet 600 mg, 600 mg, Oral, Q6H, Judy Flores MD, 600 mg at 10/17/20 1134 methocarbamoL (ROBAXIN) injection 1,000 mg, 1,000 mg, Intravenous, Q8H, Rena Moser MD, 1,000 mg at 10/18/20 0551 melatonin (MELATIN) tablet 3 mg, 3 mg, Oral, QHS, Rena Moser MD, 3 mg at 10/17/20 2231 NaCl 0.9% (NS) injection 10 mL, 10 mL, Slow IV Push, PRN, Rena Moser MD enoxaparin (LOVENOX) injection 40 mg, 40 mg, Subcutaneous, Q24H, Mandeep Garnica MD, 40 mg at 10/18/20 0855 metoprolol tartrate (LOPRESSOR) tablet 25 mg, 25 mg, Oral, BID, Mandeep Garnica MD, 25 mg at 10/18/20 0852 naloxone (NARCAN) injection 0.1 mg, 0.1 mg, Slow IV Push, SEE-INSTRUCTIONS, Mandeep Garnica MD naloxone (NARCAN) injection 0.1 mg, 0.1 mg, Slow IV Push, SEE-INSTRUCTIONS, Mandeep Garnica MD pantoprazole (PROTONIX) EC tablet 40 mg, 40 mg, Oral, BID, Mandeep Garnica MD, 40 mg at 10/18/20 0852 proMETHazine (PHENERGAN) 25 mg in NaCl 0.9% (NS) 50 mL IV piggyback, 25 mg, IV Piggyback, Q8HPRN, Yeni Maradiaga MD, 25 mg at 10/18/20 0410 Lab and Medical Test Results: NA (mmol/L) Date Value 10/17/2020 135 K (mmol/L) Date Value 10/17/2020 4.0 CALCIUM (mg/dL) Date Value 10/17/2020 8.7 CL (mmol/L) Date Value 10/17/2020 105 BUN (mg/dL) Date Value 10/17/2020 8 CREATININE (mg/dL) Date Value 10/17/2020 0.96 GLUCOSE (mg/dL) Date Value 10/17/2020 127 (H) CO2 TOTAL (mmol/L) Date Value 10/17/2020 22 (L) ALBUMIN (g/dL) Date Value 10/01/2020 5.4 (H) T PROTEIN (g/dL) Date Value 10/01/2020 9.9 (H) TOTAL BILI (mg/dL) Date Value 10/01/2020 1.0 BILI UNCON (mg/dL) Date Value 10/01/2020 0.6 BILI CONJ (mg/dL) Date Value 10/01/2020 0.0 ALT(SGPT) (U/L) Date Value 08/18/2019 19 ALTv (U/L) Date Value 10/01/2020 62 (H) AST(SGOT) (U/L) Date Value 10/01/2020 51 (H) ALK PHOS (U/L) Date Value 10/01/2020 153 (H) Nutrition Assessment: Age: [age] year old Sex: female Ht: 1.702 m / 5'7" Ht Readings from Last 3 Encounters: 10/14/20 1.702 m (5' 7") 10/01/20 1.7 m (5' 6.93") 09/27/20 1.702 m (5' 7") Current Wt: 55.1 kg/ 121 lb BMI: Body mass index is 19.03 kg/m. (Normal) IBW for Ht: 61 kg +/- 6.1 kg %IBW: 90% Weight History: Wt Readings from Last 20 Encounters: 10/14/20 55.1 kg (121 lb 7.6 oz) 10/01/20 59 kg (130 lb) 09/27/20 59.1 kg (130 lb 4.8 oz) 09/25/20 52.2 kg (115 lb 1.3 oz) 09/18/20 61.2 kg (135 lb) 09/09/20 72.5 kg (159 lb 12.8 oz) 09/01/20 59 kg (130 lb) 08/23/20 59 kg (130 lb) 08/20/20 57.6 kg (127 lb) 08/17/20 56.7 kg (125 lb) 08/09/20 56.5 kg (124 lb 8 oz) 07/23/20 70.3 kg (155 lb) 08/20/19 79.8 kg (176 lb) 06/15/19 83.9 kg (185 lb) 03/09/19 79.4 kg (175 lb) 01/05/18 69.4 kg (153 lb) 08/12/16 72.6 kg (160 lb) 08/06/16 72.6 kg (160 lb) 03/24/16 74.8 kg (165 lb) 01/25/16 81.2 kg (179 lb) Inflammatory Markers: Hyperglycemia and Increased HR (>90) Current Dietary Order(s): Regular Diet; Texture: Regular EMR documented food allergies/intolerance/cultural preferences: none Nutrition & Diet History: Spoke with patient today in room. Patient reports ongoing issues with diarrhea so may consider adding imodium to help treat. Patient UBW of 145 lbs and recent weight loss of 30 lbs since July or August. Patient reports smoking 1/2 cigar and drinking 16 oz of wine from time to time. At home, breakfast may include grits with cheese lunch and dinner may include rice, gravy, and green beans. Snacksmay include fruit, drinks include water, pedialyte and gatorade. Patient reports that her intake depends on how she feels and reports that her stomach currently hurts s/p surgery. Please see RD recs below. Estimated Daily Nutritional Needs: Calories: 1713 kcal/day = 31 kcal/kg current wt = 28 kcal/kg IBW Protein: 14-18% of kcal need/day = 61-79 g/day = 1-1.3 g/kg IBW Fluid: 5158-4476 mL/day (30-35 ml/kg IBW) or per MD; adjust per acute needs. Nutrition Diagnosis: Inadequate energy intake related to abdominal pain as evidenced by patient report. Nutrition Plan of Care: Intervention(s): 1. Continue with current diet, Regular 2. Please allow snacks between meals 3. Consider ensure high protein as needed 4. Recommend daily multivitamin 5. Continue with pain medications 6. Continue with bowel regimen, adjusting as needed Consider imodium for diarrhea Goal(s): Patient will be able to meet 100% of nutrient needs via meals/snacks/supplements. Patient will be able to eat >50-75% of all meals. D/C Planning: Nutrition Monitoring and Evaluation: A registered dietitian will f/u as indicated to report nutrition related information and to revise the recommended nutrition intervention(s); please call with questions or concerns, thank-you. Kelsey Wilson MS, RD, LD Clinical Dietitian RD Office: [phone] [employer] Ena Farrell PTA - 10/18/2020 11:33 AM [employer] Physical Therapy Progress Note: Discharge Recommendations: Therapy Needs and Potential: Patient would benefit from continued physical therapy services to address:decline in bed mobility decline in transfers decline in gait and/or balance decline in stair/step negotiation decreased strength decreased endurance Patient demonstrates good potential to improve and meet therapy goals with further physical therapy services. Patient appears motivated to improve their functional mobility and return to their previous levelof function. Patient demonstrates ability to tolerate atleast 30-60 minutes of physical therapy with active participation. Challenges to Home Transition: increased risk of falls environmental barriers Equipment recommendations: rolling walkerat this time PAIN: -Pain Location: abdomen -Pain rating before treatment: 8, After treatment: 9 -Pain Management: Nursing Notified and Repositioning Provided PRECAUTIONS: Weight Bearing Precaution: NA General Precautions: PPE used:Gloves, Gown and Surgical mask, General, Fall, Extended Contact isolation, oxygen: Nasal canula Bracing/Cast present or required:N/A S: Patient agreeable to working with PT. O: Patient met Semi reclined in bed. Patient seen for the following: Bed mobility: Supine-sit: SBA/Setup Sitting balance Fair+ Scooting to edge of bed: SBA/Setup Sit to supine: SBA/Setup analyzed for correct technique during bed mobility. Transfers: Sit to stand: SBA/Setup using Rolling Walker Stand to sit: SBA/Setup using Rolling Walker Static/dynamic standing balance: Fair Verbal cueing provided for correct hand placement and correct use of AD Rolling walker was adjusted to height of patient for proper upright posture and technique. Gait: Assisted patient with ambulation as follows: 75 feet using Rolling Walker and SBA/Setup Patient presenting with Step-through gait pattern. Patient has decreased step length and slow gait speed due to abdomen pain. Therapeutic exercise: patient educated in Fall prevention, General strengthening, Positioning and Safety awareness., instructed patient in the following: ankle pumps, hip abduction/adduction, long arc quads, seated marching, patient/caregiver demonstrates understanding of instructions. x 10 reps BLE After session, patient Semi reclined in bed and call snowden provided. All necessary items near by. Patient wore appropriate PPE during treatment: non skid socks and gait belt. A: Patient tolerated session fair. Patient progressing toward goals #1, #2, #3, #5. P: PT will - progress gait training as patient can tolerate. . Total Timed Tx Codes in Minutes: 39 Min Total Treatment Time in Minutes: 39 Min Ena Farrell PTA Supervising PT: Duarte Urbina Bethany Koch LMSW - 10/17/2020 4:19 PM CSTSocial Worker Note SW spoke with patient regarding recs for RW. Pt reported cannot afford RW. SW assisted patient complete IHC ino. Pt reported did not have tax information with her; however, would provide IHC ino and tax information to CH[employer] worker. SW obtained copy of [employer] bill and Drivers License. SW requested RW through [employer]. [employer] Management to deliver RW. Bethany Guy LMSW Timekeeper Care Management O: [phone] [email or web address] [employer] Jerry Garcia PTA - 10/17/2020 12:44 PM [employer] Physical Therapy Progress Note: Discharge Recommendations: Therapy Needs and Potential: Patient would benefit from continued physical therapy services to address: decline in bed mobility decline in transfers decline in gait and/or balance decline in stair/step negotiation decreased strength decreased endurance Patient demonstrates good potential to improve and meet therapy goals with further physical therapy services. Patient appears motivated to improve their functional mobility and return to their previous levelof function. Patient demonstrates ability to tolerate atleast 30-60 minutes of physical therapy with active participation. Challenges to Home Transition: increased risk of falls environmental barriers Equipment recommendations: rolling walker at this time PAIN: -Pain Description: aching, constant and sharp -Pain Location: abdomen -Pain rating before treatment: 8, After treatment: 8 -Pain Management: Nursing Notified and Pain Meds given PRECAUTIONS: Weight Bearing Precaution: NA General Precautions: PPE used:Gloves and Surgical mask, General, Fall,IV Peripheral Bracing/Cast present or required: N/A, however patient would benefit from abdominal binder S: Patient agreeable to working with PT. Patient refused to get up today but agreeable to supine therex. O: Patient met Semi reclined in bed. Patient seen for the following: Therapeutic exercise: instructed patient in the following: ankle pumps, quad sets, glut sets, hamstring sets, heel slides, hip abduction/adduction, straight leg raises, patient/caregiver instructed to perform HEP 2-3 times per day, 10 repetitions., patient/caregiver demonstrates understanding of instructions. facilitated 1 set of all therex which required frequent rest breaks due to pt fatigue and pain, pt demonstrated fair strength and good rehab potential After session, patient Semi reclined in bed and call snowden provided. A: Patient tolerated session poorly. unable to assess gait or transfers as pt refused at this time due to new onset of constant diahrrea and abdominal pain. P: PT will - attempt gait and transfers if pt allows. Total Timed Tx Codes in Minutes: 32 Min Total Treatment Time in Minutes: 32 Min Jerry Garcia PTA Supervising PT: Tasha Bowie Rena Gonzalez MD - 10/17/2020 8:02 AM CST GENERAL SURGERY B DAILY PROGRESS NOTE Patient Name: Jessica LAWN: [id number] Date of : 1975 Date: 10/17/2020 Surgery Date: 10/14/2020 Procedure: Ileostomy takedown and ileocolonic anastomosis 3 Days Post-Op Continues to be hospitalized due to need for pain control, postoperative management and return of bowel function SUBJECTIVE: 24 HOUR EVENTS: - NAEO - 1 small episode of emesis - Pain not well controlled despite multiple alterations to pain regimen - Tolerating PO intake - Diarrhea overnight Objective: Vital Signs Temp: [36.2 C (97.1 F)-37.4 C (99.4 F)] Pulse: [84-110] Resp: [18-20] BP: (91-117)/(57-79) MAP (mmHg): [66-92] Intake/Output Intake/Output Summary (Last 24 hours) at 10/17/2020 0803 Last data filed at 10/17/2020 0749 Gross per 24 hour Intake Output 1200 ml Net -1200 ml PHYSICAL EXAM General: alert and oriented x3 NAD HEENT: EOMI CV: RRR Resp: CTAB Abdomen: soft, NT, ND Surgical incision: C/D/I - ostomy site, anthony removed yesterday Extremities/Musculoskeletal: moves all extremities Labs Labs: CBC BMP PT/INR WBC (10*3/L) Date Value 10/01/2020 5.84 NA (mmol/L) Date Value 10/01/2020 135 No results found for: PT RBC (10*6/L) Date Value 10/01/2020 4.74 K (mmol/L) Date Value 10/01/2020 4.4 INR (no units) Date Value 07/29/2020 1.0 PLT (10*3/L) Date Value 10/01/2020 503 (H) CALCIUM (mg/dL) Date Value 10/01/2020 11.3 (H) HGB (g/dL) Date Value 10/01/2020 14.1 CL (mmol/L) Date Value 10/01/2020 102 aPTT HCT (%) Date Value 10/01/2020 43.7 BUN (mg/dL) Date Value 10/01/2020 19 APTT Patient (Seconds) Date Value 07/29/2020 30 CREATININE (mg/dL) Date Value 10/01/2020 1.19 (H) Radiology No final results containing an impression from the past 2 days were found. MEDICATIONS Scheduled Medicationsacetaminophen, 500 mg, Q6H ibuprofen, 600 mg, Q6H methocarbamoL, 1,000 mg, Q8H traZODone, 50 mg, QHS HYDROcodone-acetaminophen, 5 mg, Q6H melatonin, 3 mg, QHS docusate, 100 mg, DAILY enoxaparin (LOVENOX) SC Syringe, 40 mg, Q24H metoprolol tartrate, 25 mg, BID naloxone, 0.1 mg, SEE-INSTRUCTIONS naloxone, 0.1 mg, SEE-INSTRUCTIONS pantoprazole, 40 mg, BID sennosides, 8.6 mg, DAILY IV Medications/Drips PRN MedicationsbisacodyL, 10 mg, QHSPRN NaCl 0.9% (NS), 10 mL, PRN promethazine (PHENERGAN) IV piggyback, 25 mg, Q8HPRN Assessment: Jessica Stearns is a 45 year old female POD 3 from ileostomy takedown and ileocolonic anastomosis, progressing slowly with pain control issues. Diarrhea last night. Plan: - Will schedule pain control: Tylenol, Ibuprofen, Robaxin, hycet. - Warm compress to abdominal wall for spasms PRN - PT/OT - OOB Rena Moser MD General Surgery PGY-1 General Surgery B - Pager #: [employer] Associated attestation - Precious Chun MD - 10/17/2020 1:59 PM CSTATTESTATION: I agree with the resident's note as written. I actively participated in the decision making process.Please see the resident's note for additional details. Patient c/o 10/10 abdominal pain, nausea, diarrhea. On exam, vitals within normal limits, incision c/d/i with asia, mildly distended, appropriately TTP. Will resume home dose of xanax, add dilaudid PRN pain for walking/activities, dc trazadone, stop senna and docusate in light of diarrhea. Tentative DC tomorrow. Precious Chun MD MS Colon and Rectal SurgeryCira Davis, OT - 10/16/2020 4:32 PM [employer] Occupational Therapy Note: 10/16/2020 Consult received and chart reviewed. OT evaluation attempted, however patient reporting pain/fatigueafter working with PT. Will /follow-up tomorrow as schedule permits. Matthew Davis OTR, MOT eni Maradiaga MD - 10/14/2020 10:48 PM CST Post-Operative Check 10/14/2020 10:53 PM Procedure: Ex-lap, ileostomy take down with bowel resection and ileocolic side to side anastomosis Complications: None Diagnosis: Ileostomy and mucus fistula, s/p ileocectomy 2/2 crohn's related SBO Subjective: Patient complains of feeling hungry and nausea because of hunger. Pain present but tolerable. No vomiting, fevers, chills. Patient upset about not having phenergan for nausea, which is what she normally takes at home. Objective: Vitals: 10/14/202026 BP: 93/61 Pulse: 82 Resp: 18 Temp: 36.4 C (97.6 F) SpO2: 100% General: no acute distress, resting comfortably in bed Resp: no labored breathing Cardio: RRR Abdomen: soft, non-distended, tenderness to palpation in periumbilical region. Incision sites are clean dry and intact. Dressing with dry blood. Assessment/Plan: 45 year-old female underwent ex-lap, ileostomy takedown w/ SBR and ileocolic side to side anastomosis. Pain is tolerable and complaints of nausea without vomiting. -phenergan for nausea -continue CLD -dilaudid TOTER, as ordered by day team Yeni Maradiaga MD PGY-1 General Surgery [employer] Bethany Guy LMSW - 10/14/2020 2:33 PM CSTCare Management Social Functional Assessment Patient Name: Jessica Stearns Age: [age] year old Sex: female Patient's Previous Admission Date at [facility]: 09/25/2020 Current diagnosis and co-morbidities: Ileostomy care [Z43.2] Readmission Questions: Was patient discharged from any acute care hospital within the last 30 days: Yes Were all questions regarding previous illness/diagnosis answered prior to discharge: Yes Did you have any difficulties with your discharge instructions: No Were you able to go to your follow-up discharge appointments: Yes Any difficulties after discharge with medications: No Any difficulties after discharge with transportation: No Any difficulties after discharge with physical conditions, support, or other limitations?: No Did patient refuse services that were recommended on the previous admission: No Was patient non-compliant with the previously recommended treatment: No Social Functional Assessment: Primary language spoken/preferred: [place] Citizen Mental Status: Alert & Oriented to Person,Place & Time Information given by: Self Patient's support system: Parent;Child Name and number of support system: Uziel Garcia (Mother) [phone] and Blair David (Dtr) [phone] Primary Flight Deck Officer: Self;Same as Support System MPOA: No Living Arrangement: Home Address of living arrangement : [address] [place] [id number] Persons living in home: Same as support system Baseline functional status- ambulation: Independent Functional status-baseline personal care: Independent Baseline functional status- driving: Independent Baseline functional status- grocery shopping: Independent Functional status-baseline housekeeping: Independent Functional status-baseline meal prep: Independent Current functional status same as prior: No Current functional status- ambulation: Requires minimal to moderate assistance Current functional status- personal care: Requires minimal to moderate assistance Current functional status- driving: Requires minimal to moderate assistance Current functional status- grocery shopping: Requires minimal to moderate assistance Current functional status-house keeping: Requires minimal to moderate assistance Current functional status- meal preparation: Requires minimal to moderate assistance Do you have a PCP?: No Refered to: [facility] Agency: No Provider Services: No DME Company: No Equipment: None Hemodialysis: No Community resources utilized: [facility] Indigent [facility] Care Program;CHP;[facility] Resources Fact Sheet;Other Other community resources utilized: Marketplace Open Enrollment Funding Resources: Self Pay Prescription coverage plan: Self Pay Pharmacy where meds are filled: Other Other pharmacy: ([id number] - [place], [place] - [address] [facility]) Anticipated services prior to disharge: Continue Medical Eval;Reassess prior to discharge Expected mode of discharge transportation: Same as support system;Other Other expected mode of transportation: Taxi Additional info required for discharge planning: Pending medical evaluation Recommended discharge plan: Home SFA Complete: Social Functional Assessment complete: Yes Alcohol Use Screening (AUDIT-C) How often do you have a drink containing alcohol?: Never SCORE: 0 How often do you have six or more drinks on one occasion?: Never Did patient elect to have resources provided: No Any issues or concerns with obtaining/affording your medications at home: yes. Are you or your support system able to picker and sorter load and unload medications at discharge: no. Role of Care Management explained. Pt reportedly resides in a house with her mother and daughter. Pt stated the need to call CHP workerto assist with completing IHC application which was provided. SW informed could assist patient with completing. Pt reported did not feel well enough to complete today. SW encouraged patient to follow-up regarding IHC application. SW provided [facility] Fact Sheet, [employer] Open Enrollment Resource, and[employer] Rx card. SW sent referral to [employer] for benefits. Bethany Guy LMSW Timekeeper Care Management O: [phone] [email or web address] T [employer]EMAN documented in this encounter H&P Notes Mandeep Garnica MD - 10/14/2020 6:24 AM CST H & P 10/14/2020 Patient seen and examined with at bedside. Since last clinic visit on 09/27/20, patient has had no hospital admissions and no changes in diagnoses, medications, or allergies. Additional details may be obtained from the full H & P below. Mandeep Garnica MD, MPH General Surgery [phone] ---- Visit Type: Clinic Note / History and Physical Chief Complaint: requests ileostomy closure HPI Jessica Silveira a44 year oldfemale who had been treated for possible Crohn's diseasebefore and was admitted with an adhesive SBO in 07/2020, and underwent ileocecectomy and end ileostomy. No sign of active Crohn's disease was found at the time of surgery and 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 Follow up colonoscopy on 09/10/20 demonstrated normal mucosa throughout the colon. Patient is complaining of high ileostomy output since surgery. She has constant nausea and vomiting with food intolerance. States cannot keep up with the output and gets dehydrated. [facility] and increased Cr due [...] N/A 09/10/2020 Surgeon: Mariana Allen MD; Location: [facility] Location HYSTERECTOMY 2010 ILEOCECECTOMY N/A 07/25/2020 Surgeon: Precious Chun MD; Location: [facility] ILEOSTOMY N/A 07/25/2020 Surgeon: Precious Chun MD; Location: [facility] TUBAL LIGATION 1996 No family history on file. 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 No sign of active Crohn's disease was found [...] output Patient is consented for ileostomy closure Eedn Apodaca MD General Surgery. PGY2 ATTESTATION: I [...] Chun MD MS Colon and Rectal Surgery T [employer] Associated attestation - Precious Chun MD - 10/14/2020 7:07 AM CSTATTESTATION: I agree with the resident's note as written. I actively participated in the decision making process.Please see the resident's note for additional details. Precious Chun MD MS Colon and Rectal Surgerydocumented in this encounter Procedure Notes Ryan Hopper RN - 10/15/2020 12:10 PM CSTVascular Access Services A bedside timeout was conducted before procedure with ZARA Nunez. An ultrasound guided, 4 Fr., 10 cm. MIDLINE was then placed in the left brachial vein, in one attempt(s). Local anesthetic was not used. Labs were not obtained. REF#: [id number] Lot #: [id number] Exp: 06/14/22 documented in this encounter Consult Notes Deisy Douglass OT - 10/17/2020 10:45 AM CSTAssociated Order(s): CONSULT ADULT OCCUPATIONAL THERAPY OT GENERAL EVALUATION AND DISCHARGE Consult received via [employer], EMR reviewed and evaluation completed 10/17/20. Patient referred to occupational therapy for evaluation and treatment s/p ileostomy takedown, ileocolonic anastomosis. Patient agreeable to participate in occupational therapy. Discharge Recommendations: Therapy Potential & Need: Not applicable as no further skilled acute care OT needs at this time. Challenges to Home Transition: - Requires physical assistance for IADLS due to activity restrictions - Increased risk of falls Equipment Recommendations: shower chair PLAN OF CARE: Discharge from OT services Precautions: Weight bearing status: No lifting greater than 10 lbs. General: PPE Utilized: Gloves, Gown and Surgical mask, Extended Contact, Fall and abdominal precautions Bracing: N/A Current Occupational Performance and/or Treatment: Grooming: Independent for hand hygiene standing at sink UB/LB Bathing: Patient trained on compensatory positioning to maintain abdominal precautions and use of shower chair for fall prevention and energy conservation, verbalizes understanding UB Dressing: Independent to don/doff gown over back LB Dressing: Modified independent, patient trained on compensatory positioning to prevent excessive forward trunk flexion and strategies given subjective decreased left LE mobility at hip, demos goodcarryover Toilet Transfer: Independent Toileting Hygiene: Independent for perineal hygiene Functional Mobility: Patient trained on logroll technique for bed mobility, modified independent supine<>sit with HOB slightly elevated. Patient independent in sit<>stand transfers. Patientwith slowed speed during functional mobility however safe short household distances in room with no d evice, no LOB noted, defer further gait training/assessment to PT. Patient/caregiver educated on: Adaptive equipment , ADL training, Compensatory techniques/adaptive strategies, Energy conservation, Fall prevention, Role of OT, Safety awareness, Movement restrictions and benefits of continued out of bed activity while in-house to prevent further deconditioning. Patient left semireclining in bed with call snowden in reach. Vital signs stable . Please, see full evaluation below for more detail. OT EVALUATION: 45 year old female Admit date: 10/14/2020 Date of onset: 10/14/2020 Admit Diagnosis: Ileostomy care [Z43.2] OT Diagnosis: Impaired BADL independence, Impaired IADL independence, Decreased endurance and Impaired self-care mobility PMH: Past Medical History: Diagnosis Date Crohn disease Drug-seeking behavior 03/04/2019 Please avoid using narcotics IBS (irritable bowel syndrome) PSH: Past Surgical History: Procedure Laterality Date SECTION X 2 EXPLORATORY LAPAROTOMY N/A 10/14/2020 Surgeon: Precious Chun MD; Location: [facility] FLEXIBLE SIGMOIDOSCOPY (SHX) N/A 09/10/2020 Surgeon: Mariana Allen MD; Location: [facility] Location HYSTERECTOMY 2010 ILEOCECECTOMY N/A 07/25/2020 Surgeon: Precious Chun MD; Location: [facility] Location ILEOSTOMY N/A 07/25/2020 Surgeon: Precious Chun MD; Location: [facility] Location ILEOSTOMY TAKEDOWN Right 10/14/2020 Surgeon: Precious Chun MD ILEOSTOMY TAKEDOWN N/A 10/14/2020 Surgeon: Precious Chun MD; Location: [facility] Location TUBAL LIGATION 1996 PAIN: Before assessment: 06/24 After assessment: 06/24 Location: abdomen Pain Management: Repositioning Provided and patient reports being due for pain meds ~1200 OCCUPATIONAL ROLES/HOME ENVIRONMENT: Patient plans to discharge to daughter's home, information below reflects daughter's home setup Home environment: Single story home with 3 DUANE and Lives alone typically, daughter and her spouse live at discharge environment, son also lives nearby for assist Bathroom access: Yes Bathroom setup: Combo Occupation(s): Disabled Function prior to admission: Independent in ADL and functional mobility, driving, son assists with IADL at times however reports ability to "mostly able to manage at home" Equipment prior to admission: None PERFORMANCE SKILLS/FACTORS: UE Muscle Tone: bilateral WNL UE ROM: bilateral AROM WFL UE Strength: LINDSAY UE WFL Hand dominance: not assessed Dexterity/Coordination: bilateral Intact Endurance - Sitting: Good Standing: Fair Sitting Balance - Static: Good Dynamic: Good Standing: Balance - Static Good Dynamic: Fair+ Dizziness: No Skin Integrity: No breakdown noted Sensation: bilateral Intact to light touch Oral Motor: WFL Communication: Able to verbalize needs Yes Other: N/A Vision: WFL Yes Other: N/A Hearing: good; no issues reported COGNITION: Orientation: person, place, date/time and situation Follows Commands: 1-step Yes Multi-step Yes Inconsistencies No Safety Awareness/Judgment: Good PROBLEM LIST: Decreased independence with IADL and Decreased strength/endurance for functional activity REHAB POTENTIAL/PROGNOSIS: excellent PATIENT/FAMILY GOALS: Return home to recover TREATMENT/INTERVENTION PLAN: Discharge from OT PATIENT-FAMILY TEACHING Patient provided with preferred teaching of verbal information and demonstration on Adaptive equipment , ADL training, Compensatory techniques/adaptive strategies, Energy conservation, Fall prevention,Role of OT, Safety awareness, Movement restrictions and benefits of continued out of bed activity while in- house to prevent further deconditioning. Shows readiness to learn. Verbal instruction teachingprovided. Individual is able to read and verbalizes understanding of teaching provided and accurately returns demonstration of skill. Bushra Douglass OTR/Alonzo, KEDAR JACOBSEN pager number: [phone] Total Timed Treatment Codes: 12 Min Total Treatment Time: 18 Min Patient Complexity Level Moderate - An occupational therapy evaluation of moderate complexity was completed using the above tests and measures. The following information was obtained: An occupational profile and medical and therapy history, including an expanded review of medical and/or therapy records and additional review of physical, cognitive, or psychosocial history related to current functional performance, Various standardized and non-standardized assessments were used to identify at least 3-5 performance deficits related to physical, cognitive, or psychosocial skills that result in activity limitations and/or participation restrictions and Clinical decision making of moderate analytic complexity, which includes an analysis of the occupational profile, analysis of data from detailed assessment(s), and consideration of several treatment options. Patient may present with comorbidities thataffect occupational performance. Minimal to moderate modification of tasks or assistance (e.g., physical or verbal) with assessment(s) is necessary to enable patient to complete evaluation component. Duarte Lechuga PT - 10/16/2020 11:53 AM SHEET [employer]EM[employer] Associated Order(s): CONSULT ADULT PHYSICAL THERAPY Patient agreeable to working with physical therapy. Patient met attempting to walk to the bathroom independently. Assisted patient to bathroom prior to beginning session. Patient seen in conjunction with PHOENIX Harrison. PHYSICAL THERAPY EVALUATION Consult received, chart reviewed and evaluation complete this date. Patient is referred to PT for evaluation and treatment. Patient is a 45 year old female who presents to hospital for Ileostomy care and is seen s/p ileostomy takedown and ileocolonic anastomosis on 10/14/20. Discharge Recommendations: Therapy Needs and Potential: Patient would benefit from continued physical therapy services to address: decline in bed mobility decline in transfers decline in gait and/or balance decline in stair/step negotiation decreased strength decreased endurance Patient demonstrates good potential to improve and meet therapy goals with further physical therapy services. Patient appears motivated to improve their functional mobility and return to their previous levelof function. Patient demonstrates ability to tolerate atleast 30-60 minutes of physical therapy with active participation. Challenges to Home Transition: increased risk of falls environmental barriers Equipment recommendations: rolling walker at this time Current Functional Status and/or Treatment:Transfer training, Gait training, Patient/Family/Caregiver education and Therapeutic exercise Bed Mobility: NT secondary to patient walking to bathroom upon arrival for session. . Transfers: Sit to stand: CGA using Rolling Walker with verbal cues for hand placement and technique Stand to sit: CGA using Rolling Walker with verbal cues for hand placement and technique Ambulation: Assisted patient with ambulation as follows: ~60 feet using Rolling Walker and initially CGA but progresses to supervision. Patient presenting with Step-through gait pattern with decreased lindsay step length. Patient demonstrates forward trunk lean and shoulder elevation secondary to abdominal pain. Patient verbally cued inproper gait sequencing with AD, postural correction, relaxation of shoulders, and deep breathing during ambulation. Therapeutic exercise: patient educated in Relaxation/breathing techniques, ankle pumps, heel slides, and logroll technique for bed mobility. After session, patient Up in chair. Call button provided. PLAN OF CARE: At least 2 times per week, once or twice a day (while in hospital) per patient's tolerance and medical needs. See below for complete details. Admit Date: 10/14/2020 Hospital Diagnosis:Ileostomy care [Z43.2] PT Diagnosis: Difficulty walking and Weakness Weight Bearing Precaution: NA General Precautions: PPE used:Gloves and Surgical mask, General, Fall,IV Peripheral Bracing/Cast present or required: N/A, however patient would benefit from abdominal binder PMH: Past Medical History: Diagnosis Date Crohn disease Drug-seeking behavior 03/04/2019 Please avoid using narcotics IBS (irritable bowel syndrome) PSH: Past Surgical History: Procedure Laterality Date SECTION X 2 EXPLORATORY LAPAROTOMY N/A 10/14/2020 Surgeon: Precious Chun MD; Location: [facility] FLEXIBLE SIGMOIDOSCOPY (SHX) N/A 09/10/2020 Surgeon: Mariana Allen MD; Location: [facility] Location HYSTERECTOMY 2010 ILEOCECECTOMY N/A 07/25/2020 Surgeon: Precious Chun MD; Location: [facility] Location ILEOSTOMY N/A 07/25/2020 Surgeon: Precious Chun MD; Location: [facility] Location ILEOSTOMY TAKEDOWN Right 10/14/2020 Surgeon: Precious Chun MD ILEOSTOMY TAKEDOWN N/A 10/14/2020 Surgeon: Precious Chun MD; Location: [facility] Location TUBAL LIGATION 1996 Prior Living Situation: Patient states she lives with her mom in a single-story home, however she often stays at her daughter's home with 3 steps to enter. DME: Four wheeled walker with seat that belongs to her mom Prior level of Mobility: community ambulation Subjective: Patient states she was independent prior to hospitalization, however she used her mom's rolling walker for community ambulation when she needed it. Patient/Family Goals: To get better. Patient/Family verbalizes understanding of condition: Yes PAIN: -Pain Description: constant, patient states she feels "bloated" and she feels she needs to have a BM -Pain Location: abdomen -Pain rating before treatment: 9, After treatment: 9 -Pain Management: Uses TOTER COMMUNICATION Primary Language: [place] Citizen Able to Verbalize needs: Yes Vision:good; no issues reported Hearing:good; no issues reported ORIENTATION/COGNITION: Oriented to: person, place, date/time and situation Awake: Yes Alert: Yes Dizzy: No Follows Commands: Yes 1-Step Yes Multi-Step Yes Inconsistent: No NEUROLOGICAL Light Touch: within functional limits bilateral LE Tone: normal BALANCE: Sitting: Static: Good Dynamic: Fair+ Standing: Static: Fair+ Dynamic: Fair+ RANGE OF MOTION: within functional limits bilateral LE STRENGTH: 4-/5 (G-), bilateral LE ENDURANCE: Fair, Room air SKIN INTEGRITY: defer to nursing notes PROBLEM LIST: Decline in bed mobility, Decline in gait, Decline in transfers, Difficulty with stairs, Decreased strength and Decreased endurance ASSESSMENT: Patient is a 45 year old female seen secondary to the above listed diagnosis. Patient would benefit from continued PT to address the above listed deficits to maximize independence and safety with functional mobility. Rehabilitation Potential: good Goals: The following goals are to maximize independence and safety with functional mobility to eventually return to prior living situation and prior functional status. Upon discharge, patient and/or family will demonstrate the followin. Supine-sit: Modified independent Sit to supine: Modified independent 2. Sit to stand: Modified independent using Rolling Walker Stand to sit: Modified independent using Rolling Walker 3. Modified independent with ambulation, Feet: 300 using least assistive device. 4. Modified independent up/down 3 stairs using handrails 5. Demonstrate or verbalize understanding of home exercise program in order to continue with their rehab on their own. Treatment Plan: Gait training, Gait training on stairs, Therapeutic exercise, Transfer training, Balance training, Bed mobility training, Equipment needs assessment and Safety education, patient/caregiver education PATIENT EDUCATION: Patient provided with preferred teaching of verbal information on role of PT, plan of care, therex, and logroll technique. Shows readiness to learn. Verbal instruction teaching provided. Individual verbalizes understanding of teaching provided. Total Time Tx Codes in Minutes: 10 min Total Treatment Time in Minutes: 26 min PHOENIX Harrison I was present and participated throughout the session and agree with the documentation as written bythe student therapist on the encounter dated 10/16/20. Duarte Urbina PT, DPT elsey Wilson RD - 10/15/2020 4:03 PM CSTFood Allergy and Cultural/Lutheran Food Preferences Consult Note: Spoke with patient today to confirm food allergy. Patient reports allergy to caffeine reporting hives and swelling as reaction. No further allergies noted. Kelsey Wilson, MS, RD, LD Clinical Dietitian RD Office: [phone] . T [employer] documented in this encounter Miscellaneous Notes Care Plan - Mami Jiménez RN - 10/19/2020 11:29 AM SHEET [employer] Problem: Pain Goal: Control of pain at or below patient's documented comfort goal Outcome: Adequate for discharge Goal: Reduction in pain sensation Outcome: Adequate for discharge Problem: Discharge Planning Goal: Absence of venous thromboembolism Outcome: Adequate for discharge Goal: Adequate for discharge Outcome: Adequate for discharge Goal: Effective communication Outcome: Adequate for discharge ursing Note - Kitty Villanueva RN - 10/19/2020 5:10 AM CSTAbdominal wound cleansed with HCG wipes patient was given .New dressing applied to right horizontal-like area that had a moderate amount of greenish drainage on soiled gauze. Pt c/o nausea and pain requesting dilaudid and phenergan at 6 (closer to the time she eats). T [employer]EM[employer] Care Plan - Kitty Villanueva RN - 10/19/2020 3:14 AM SHEET [employer] Problem: Pain Goal: Control of pain at or below patient's documented comfort goal Outcome: Progressing as expected Goal: Reduction in pain sensation Outcome: Progressing as expected Problem: Discharge Planning Goal: Absence of venous thromboembolism Outcome: Progressing as expected Goal: Adequate for discharge Outcome: Progressing as expected Goal: Effective communication Outcome: Progressing as expected are Plan - Queta Coleman RN - 10/18/2020 10:53 AM SHEET [employer] Problem: Pain Goal: Control of pain at or below patient's documented comfort goal Outcome: Progressing as expected Goal: Reduction in pain sensation Outcome: Progressing as expected ursing Note - Kitty Villanueva RN - 10/18/2020 6:00 AM CSTPt up oob to bathroom and back without any difficulty, has been a little hypotensive this shift but is asymptomatic. Drainage noted to ileostomy site and patient states she can smell a foul odor. She is requesting an abdominal binder and k pad for her back. States she remains in pain. Will Pass on to MD. are Plan - Kitty Villanueva RN - 10/18/2020 12:17 AM SHEET [employer] Problem: Pain Goal: Control of pain at or below patient's documented comfort goal Outcome: Progressing as expected Goal: Reduction in pain sensation Outcome: Progressing as expected Problem: Discharge Planning Goal: Absence of venous thromboembolism Outcome: Progressing as expected Goal: Adequate for discharge Outcome: Progressing as expected Goal: Effective communication Outcome: Progressing as expected T [employer] Nursing Note - Kitty Villanueva RN - 10/17/2020 7:45 PM CSTRecd patient awake alert and oriented in pain and upset that she had not received her pain medication. Charge and COA notified that some type of error in loading the dilaudid had occurred and nursing staff is unable to pull it out. I had gone to two additional units to see if it could be obtained and had the same problem. Pt given other pain medication and phenergan while waiting for the problem to be resolved. are Plan - Irais Vela RN - 10/17/2020 9:41 AM [employer] Problem: Pain Goal: Control of pain at or below patient's documented comfort goal Outcome: Progressing as expected Goal: Reduction in pain sensation Outcome: Progressing as expected Problem: Discharge Planning Goal: Absence of venous thromboembolism Outcome: Progressing as expected Goal: Adequate for discharge Outcome: Progressing as expected Goal: Effective communication Outcome: Progressing as expected are Plan - Miesha Scherer RN - 10/16/2020 3:19 PM [employer] Problem: Pain Goal: Control of pain at or below patient's documented comfort goal Outcome: Progressing as expected Goal: Reduction in pain sensation Outcome: Progressing as expected Problem: Discharge Planning Goal: Absence of venous thromboembolism Outcome: Progressing as expected Goal: Adequate for discharge Outcome: Progressing as expected Goal: Effective communication Outcome: Progressing as expected are Plan - Aurelia Bingham Rn, RN - 10/15/2020 7:15 PM [employer] Problem: Pain Goal: Control of pain at or below patient's documented comfort goal Outcome: Progressing as expected Goal: Reduction in pain sensation Outcome: Progressing as expected Problem: Discharge Planning Goal: Absence of venous thromboembolism Outcome: Progressing as expected Goal: Adequate for discharge Outcome: Progressing as expected Goal: Effective communication Outcome: Progressing as expected [employer] Anesthesia Note - Ramiro Hagan MD - 10/15/2020 10:46 AM CST ANESTHESIA POST-OP SERVICE PROGRESS NOTE 10/15/2020 History of Present illness: Jessica Stearns is a 45 year old female POD #1 REVIEW OF SYSTEMS (bolded if positive, otherwise negative) HEENT: Corneal Abrasion, Nose Bleed, Throat Pain, Dental Damage Cardiovascular: Myocardial Infarction, Hypotension, Surgical bleed Resp: Shortness of breath, Hypoxia GI: Post-Op Nausea/Vomiting Neuro: Altered sensorium, Neuropathy, Stroke/TIA, Uncontrolled Pain, Urinary Retention, Intra-operative awareness Physical Exam: Vitals: 10/14/20202610/14/20 2344 10/15/20 0337 10/15/20 0814 BP: 93/61 106/68 95/65 91/62 BP Location: Right arm Right arm Right arm Patient Position: Supine Supine Supine Pulse: 82 88 77 77 Resp: 18 18 18 18 Temp: 36.4 C (97.6 F) 37.1 C (98.7 F) 36.5 C (97.7 F) 35.5 C (95.9 F) TempSrc: Oral Oral Oral Oral SpO2: 100% 99% 100% 100% Weight: Height: Body mass index is 19.03 kg/m. GENERAL: Jessica Stearns is a well developed, well nourished, alert, oriented HEENT: normocephalic atraumatic and moist mucous membranes, anicteric sclera bilaterally LUNGS: normal excursion, no respiratory distress, unlabored breathing CARDIOVASCULAR: normal pulse rate, warm extremities, no gross edema noted Plan: 1. Patient doing well 2. No further follow-up required documented in this encounter Plan of Treatment Name Type Priority Associated Diagnoses Order S chedule CREATININE LAB Routine ONCE for 1 Occu rrences starting 10/14/2020 unti l 10/14/2020 Health Maintenance Due Date Last Done Comments [...] Procedure Name Priority Date/Time Associated Comments Diagnosis BASIC METABOLIC Routine 10/17/2020 5:11 Results for this PANEL (NA, K, CL, PM [employer] procedure are in CO2, GLUCOSE, BUN, the resul ts CREATININE, CA) section. CLOSTRIDIUM Routine 10/17/2020 11:24 Results for this DIFFICILE TOXIN AM [employer] procedure ar e in the results section. MRSA / MSSA SCREEN Routine 10/14/2020 7:09 Resul ts for this BY PCR, NARES PM [employer] procedure are in the results section. SURGICAL PATHOLOGY STAT 10/14/2020 9:01 Resul ts for this EXAM AM [employer] procedure are i n the results section. ILEOSTOMY TAKEDOWN Level 5 (greater 10/14/2020 7:10 Ileostomy care than 5 days) AM [employer] EXPLORATORY Level 5 (greater 10/14/2020 7:10 Ileostomy care LAPAROTOMY than 5 days) AM [employer] documented in this encounter Results BASIC METABOLIC PANEL (NA, K, CL, CO2, GLUCOSE, BUN, CREATININE, CA) (10/17/2020 5:11 PM [employer]) Pathologist Sig nature NA 135 135 - 145 [facility] mmol/L SERVICES K 4.0 3.5 - 5.0 [facility] mmol/L SERVICES CL 105 98 - 108 mmol/L [facility] SERVICES CO2 TOTAL 22 (L) 23 - 31 mmol/L [facility] SERVICES AGAP 8 2 - 16 [facility] SERVICES BUN 8 7 - 23 mg/dL [facility] SERVICES GLUCOSE 127 (H) 70 - 110 mg/dL [facility] SERVICES CREATININE 0.96 0.50 - 1.04 [facility] mg/dL SERVICES CALCIUM 8.7 8.6 - 10.6 [facility] mg/dL SERVICES eGFR Calculation 62.6 mL/min/1.73m2 [facility] (Non- SERVICES Malagasy) eGFR Calculation 75.8 mL/min/1.73m2 [facility] () SERVICES Specimen Blood - ARM, RIGHT Narrative Performed At Association of Glomerular Filtration Rate (GFR) and St aging [facility] SERVICES of Kidney Disease* + [...] in imaging tests) . Performing Organization Address [facility] Phone Number [facility] SERVICES CLIA: [id number] [place] [address] [place] [address] CLOSTRIDIUM DIFFICILE TOXIN (10/17/2020 11:24 AM [employer]) Pathologist Sig nature Clostridioides Negative Negative [facility] (Clostridium) difficile SERVICES Specimen Stool - ANAL Performing Organization Address [facility] Phone Number [facility] CLIA: [id number] [place] [address] [place] [address] MRSA / MSSA Screen by PCR, Nares (10/14/2020 7:09 PM [employer]) Pathologist Sig nature MRSA Screen by PCR, Negative Negative [facility] Nares SERVICES MSSA Screen by PCR, Negative Negative [facility] Nares SERVICES MRSA/MSSA Positive? No No [facility] SERVICES Specimen Swab - NARES, BOTH SIDES Performing Organization Address [facility] Phone Number [facility] CLIA: [id number] [place] [address] [place] [address] SURGICAL PATHOLOGY EXAM (10/14/2020 9:01 AM [employer]) Case Report Surgical Pathology Case: [id number] [facility] Authorizing Provider: Precious Walter MD Collected: 10/14/2020 0901 SERVICES Ordering Location: [facility] OR Received: 10/14/2020 1106 Department Pathologist: Marian Gr MD Specimens: A) - STOMA, Il eostomy B) - COLO N, Ileocolic anastamosis Final Diagnosis [facility] Electroni ronit A. COLON, ILEOSTOMY STOMA, EXCISION: SERV ICES signed by Marian Gr, - BENIGN SKIN AND ILEAL TISSUE WITH VASCULAR CONGESTION AND SURFACE EROSION, on 10/17/2020 at CONSISTENT WITH ILEOSTOMA 1:12 PM B. COLON, ILEOCOLIC ANASTOMOSIS, EXCISION: - BENIGN COLON AND ILEA L TISSUE WITH CONGESTED VESSEL, CONSISTENT WITH ILEOCOLIC ANASTOMOSIS I have personally reviewed a ll specimens/slides and agree with all statements made by residents, fellows or pathologist assistants whose name(s) may appear on this report. Clinical Ileostomy care [facility] Information [Z43.2] SERVICES Gross Description Specimen A received fresh la beled the patient's name, number, "soft tissue, ileostomy stoma" and consists of an ileostomy takedown specimen with a surgically sutured stoma and a stapled short segment [facility] of bowel (2.8 cm in length and 3.6 cm diameter). Exposed mucosa at the stoma is dark purple to bauer-ovalle with a thin rim of pale ovalle skin (0.3 cm). The staple margin is removed and the specimen is open SERVICES ed revealing unremarkable in testinal mucosa. Corporate Logistics Manager full-thickness perpendicular sections are submitted as A1 A2. Specimen B received fresh la beled with the patient's name, number, "soft tissue, ileocolic anastomosis" and consists of an irregular segment of anastomosed bowel with multiple staple margins (5.6 x 2 .5 x 1.8 cm). Staple margin s are released and areas unremarkable colonic and ileal mucosa are present. Ileal mucosa has a slightly polypoid, lymphoid hyperplasia appearance. Corporate Logistics Manager sections are submitted as B1 B2. Christiano Bermudez MD (Pathologist Body Welder) Embedded Images [facility] SERVICES Specimen Tissue - STOMA Tissue specimen (specimen) - COLON Performing Organization Address City/State/Zipcode Phone Number [facility] CLIA: [id number] [place] [address] [place] [address] documented in this encounter Visit Diagnoses Diagnosis Ileostomy care - Primary Attention to ileostomy Crohn's disease of colon with complicati on Elective surgery Unspecified elective surgery for purpose s other than remedying health states documented in this encounter Administered Medications Medication Order MAR Action Action Date Dose Rate Site acetaminophen (TYLENOL) 160 mg/5 mL liqu id 325 mg 325 mg, Oral, Q8H, First dose (after last modification ) on Wed10/18/20 at 2200, Until Discontinued, Routine ALPRAZolam (XANAX) tablet 0.25 mg Given 10/19/2020 8:46 AM [employer] 0.25 mg 0.25 mg, Oral, BID, First dose on Wed10/17/20 at 2000, Until Discontinued, Routine Given 10/18/2020 8:32 PM [employer] 0.25 mg Given 10/18/2020 8:52 AM [employer] 0.25 mg bisacodyL (DULCOLAX) suppository 10 mg 10 mg, Rectal, QHSPRN, Starting 10/16 at 2100, Until Discontinued, Routine, Constipation enoxaparin (LOVENOX) injection 40 mg Given 10/19/2020 8:46 AM [employer] 40 mg Abdo men-SC 40 mg, Subcutaneous, Q24H, First dose on Wed10/15/20 at 0900, Until Discontinued, Routine Given 10/18/2020 8:55 AM [employer] 40 mg Abdo men-SC Given 10/17/2020 8:21 AM [employer] 40 mg Abdo men-SC HYDROcodone-acetaminophen (HYCET) 7.5-325 Given 10/19/2020 12:08 PM [employer] 10 mg mg/15 mL solution 10 mg 10 mg, Oral, Q4H, First dose on Wed10/18/20 at 2000, Until Discontinued, Routine Given 10/19/2020 8:45 AM [employer] 10 mg Given 10/19/2020 4:06 AM [employer] 10 mg HYDROmorphone (DILAUDID) injection 1 mg Given 10/19/2020 2:11 PM [employer] 1 mg 1 mg, Slow IV Push, Q6HPRN, Starting Wed10/17/20 at 2055, Until Discontinued, Routine, Pain (scale 7-10), Use approved by (Faculty): GENERAL SURGERY, General surgeon approving: Tamera Chuna, Given 10/19/2020 6:03 AM [employer] 1 mg Given 10/18/2020 8:32 PM [employer] 1 mg ibuprofen (IBU) tablet 600 mg Given 10/19/2020 12:07 PM [employer] 600 mg 600 mg, Oral, Q6H, First dose (after last modification) on Wed10/16/20 at 1200, Until Discontinued, Routine Given 10/19/2020 6:02 AM [employer] 600 mg Given 10/18/2020 11:59 PM [employer] 600 mg melatonin (MELATIN) tablet 3 mg Given 10/18/2020 8:32 PM [employer] 3 mg 3 mg, Oral, QHS, First dose on Wed10/15/20 at 2100, Until Discontinued, Routine Given 10/17/2020 10:31 PM [employer] 3 mg Given 10/16/2020 9:15 PM [employer] 3 mg methocarbamoL (ROBAXIN) injection 1,000 mg Given 10/19/2020 2:10 PM [employer] 1,000 mg 1,000 mg, Intravenous, Q8H, First dose on Wed10/16/20 at 1400, Until Discontinued, Routine Given 10/19/2020 6:03 AM [employer] 1,000 mg Given 10/18/2020 9:08 PM [employer] 1,000 mg metoprolol tartrate (LOPRESSOR) tablet 2 5 mg Given 10/19/2020 8:46 AM [employer] 25 mg 25 mg, Oral, BID, First dose on Wed10/14/20 at 2000, Until Discontinued, Routine Given 10/18/2020 8:32 PM [employer] 25 mg Given 10/18/2020 8:52 AM [employer] 25 mg NaCl 0.9% (NS) injection 10 mL 10 mL, Slow IV Push, PRN, Starting Wed10/15/20 at 1051 , Until Discontinued, Routine, line haul driver naloxone (NARCAN) injection 0.1 mg 0.1 mg, Slow IV Push, SEE-INSTRUCTIONS, Starting Wed12/14/19 at 1028, Until Discontinued, Routine naloxone (NARCAN) injection 0.1 mg 0.1 mg, Slow IV Push, SEE-INSTRUCTIONS, Starting Wed12/14/19 at 1957, Until Discontinued, Routine pantoprazole (PROTONIX) EC tablet 40 mg Given 10/19/2020 8:46 AM [employer] 40 mg 40 mg, Oral, BID, First dose on Wed10/14/20 at 2000, Until Discontinued, Routine Given 10/18/2020 8:32 PM [employer] 40 mg Given 10/18/2020 8:52 AM [employer] 40 mg proMETHazine (PHENERGAN) 25 mg in NaCl 0.9% Given 10/19/2020 2:10 PM [employer] 25 mg (NS) 50 mL IV piggyback 25 mg, IV Piggyback, Q8HPRN, Starting Wed10/14/20 at 2157, Until Discontinued, Routine, Nausea and Vomiting (N/V) Given 10/19/2020 6:03 AM [employer] 25 mg Given 10/18/2020 8:00 PM [employer] 25 mg simethicone (GAS RELIEF (SIMETHICONE)) Given 10/19/2020 12:07 PM [employer] 80 mg chewable tablet 80 mg 80 mg, Oral, PC+HS, First dose on 10/19/20 at 0900, Until Discontinued, Routine Given 10/19/2020 8:46 AM [employer] 80 mg Medication Order MAR Action Action Date Dose Rate Site acetaminophen (TYLENOL) 160 mg/5 mL Given 10/16/2020 9:15 PM CS T liquid 500 mg 500 mg, Oral, Q6H, First dose (after last modification) on Wed10/16/20 at 1200, Until Discontinued, Routine Given 10/16/2020 2:44 PM [employer] 500 mg acetaminophen (TYLENOL) 160 mg/5 mL liquid Given 10/16/2020 8:54 AM [employer] 650 mg 650 mg 650 mg, Oral, Q8H, First dose on Wed10/15/20 at 1400, Until Discontinued, Routine Given 10/15/2020 10:00 PM [employer] 650 mg Given 10/15/2020 3:08 PM [employer] 650 mg acetaminophen (TYLENOL) tablet 650 mg Given 10/14/2020 6:43 AM [employer] 650 mg 650 mg, Oral, O.R. HOLDING ONCE, 1 dose, Starting Wed10/14/20 at 0641, Until Wed10/14/20 at 0643, Routine, Surgery / Procedure, DSU Pre-op acetaminophen ADULT (OFIRMEV) injection Given 10/15/2020 7:34 A M [employer] 1,000 mg 1,000 mg 1,000 mg, IV Infusion, Administer over 15 Minutes, Q6H, 4 doses, First dose on Wed10/14/20 at 1200, Last dose on Wed10/15/20 at 0600, Routine, Indication: Perioperative Patient Given 10/15/2020 12:29 AM [employer] 1,000 mg Given 10/14/2020 11:29 AM [employer] 1,000 mg bisacodyL (DULCOLAX) suppository 10 mg Given 10/16/2020 8:55 AM [employer] 10 mg 10 mg, Rectal, ONCE, 1 dose, Wed10/16/20 at 0945, Routine diphenhydrAMINE (BENADRYL) injection 12.5 Given 10/14/2020 1 1:29 AM [employer] 12.5 mg mg 12.5 mg, Slow IV Push, Q4HPRN, Starting Wed10/14/20 at 1032, Until Wed10/14/20 at 1215, Routine, Itching, PACU diphenhydrAMINE (BENADRYL) injection 12.5 Given 10/14/2020 9:11 PM [employer] 12.5 mg mg 12.5 mg, Slow IV Push, Q6HPRN, Starting Wed10/14/20 at 1959, Until Wed10/14/20 at 2157, Routine, Itching docusate (COLACE) capsule 100 mg Given 10/16/2020 8:54 AM [employer] 100 mg 100 mg, Oral, DAILY, First dose on Wed10/15/20 at 0900, Until Discontinued, Routine Given 10/15/2020 7:39 AM [employer] 100 mg gabapentin (NEURONTIN) capsule 300 mg Given 10/14/2020 6:43 AM [employer] 300 mg 300 mg, Oral, O.R. HOLDING ONCE, 1 dose, Starting Wed10/14/20 at 0641, Until Wed10/14/20 at 0643, Routine, Surgery/Procedure, DSU Pre-op heparin (porcine) Given 10/14/2020 6:42 AM 5,000 Units Right Lower Quad. injection 5,000 Units [employer] Abdomen 5,000 Units, Subcutaneous, ONCE, 1 dose, Wed10/14/20 at 0645, Routine, DSU Pre-op HYDROcodone-acetaminophen (HYCET) 7.5-325 Given 10/15/2020 9:48 AM [employer] 5 mg mg/15 mL solution 5 mg 5 mg, Oral, Q6HPRN, Starting Wed10/15/20 at 0806, Until Wed10/15/20 at 1054, Routine, Pain (scale 4-6) HYDROcodone-acetaminophen (HYCET) 7.5-325 Given 10/17/2020 11:33 AM [employer] 5 mg mg/15 mL solution 5 mg 5 mg, Oral, Q6H, First dose (after last modification) on Wed10/15/20 at 1200, Until Discontinued, Routine Given 10/17/2020 5:14 AM [employer] 5 mg Given 10/17/2020 12:02 AM [employer] 5 mg HYDROcodone-acetaminophen (HYCET) 7.5-325 Given 10/18/2020 12:18 PM [employer] 5 mg mg/15 mL solution 5 mg 5 mg, Oral, Q4H, First dose (after last modification) on Beth 10/17/20 at 1600, Until Discontinued, Routine Given 10/18/2020 8:52 AM [employer] 5 mg Given 10/18/2020 4:14 AM [employer] 5 mg HYDROmorphone (DILAUDID) injection 0.2 m g Given 10/14/2020 11:40 AM [employer] 0.2 mg 0.2 mg, Slow IV Push, Q5MIN PRN, 10 doses, Starting Wed10/14/20 at 1032, Until Wed10/14/20 at 1215, Routine, Pain (scale 7-10), PACU, Use approved by (Faculty): PACU USE -ANESTHESIA SERVICE-HYDROMORPHONE INJECTIONS Given 10/14/2020 11:35 AM [employer] 0.2 mg Given 10/14/2020 11:28 AM [employer] 0.2 mg HYDROMORPHONE TOTER 6MG/30ML New Bag 10/15/2020 12:08 AM [employer] HYDROMORPHONE TOTER 6MG/30ML New Bag 10/16/2020 3:52 AM [employer] Rate Change 10/15/2020 11:00 AM [employer] lactated ringers IV infusion New Bag 10/15/2020 7:48 AM [employer] 1,000 mL 75 mL/hr 1,000 mL at 75 mL/hr, 1,000 mL, IV Infusion, CONTINUOUS, Starting 10/14/20 at 1045, Until Wed10/16/20 at 0605, Routine, PACU morpHINE 30 mg/30 mL (fixed dose) New Bag 10/14/2020 11:19 AM [employer] 30 mg Right Hand TOTER injection sennosides (SENOKOT) tablet 8.6 mg Given 10/16/2020 8:54 AM [employer] 8.6 mg 8.6 mg, Oral, DAILY, First dose on Wed10/15/20 at 0900, Until Discontinued, Routine Given 10/15/2020 7:39 AM [employer] 8.6 mg traZODone (COMPOUNDED) oral suspension 5 0 mg Given 10/16/2020 9:15 PM [employer] 50 mg 50 mg, Oral, QHS, First dose on Wed10/16/20 at 2100, Until Discontinued, Routine documented in this encounter
[2020-10-24 07:19] LABS: ALT/SGPT 13 U/L (12-78); AST/SGOT 21 U/L (15-37); Albumin 2.4 g/dL (3.4-5.0); Alkaline Phosphatase 94 U/L (45-117); BUN Blood Urea Nitrogen 6 mg/dL (7-18); Bicarbonate 33 mmol/L (21-32); Bilirubin Direct < 0.1 mg/dL (0-0.2); Bilirubin Total 0.4 mg/dL (0.2-1.0); Glucose Level 100 mg/dL (74-106); Lipase 104 U/L (73-393); Protein, Total 6.9 g/dL (6.4-8.2); Sodium Level 141 mmol/L (136-145)
[2020-10-24] MEDS ORDERED: VANCOMYCIN/NS 1 gm 1 GM/250 ML BAG IV ONE (07:30)
[2020-10-24] MEDS ORDERED: DIPHENHYDRAMINE 50 MG/ML VIAL ONE ×2 (07:51→11:30)
[2020-10-24] MEDS ORDERED: MORPHINE 4 MG/ML SYR ONE (07:52)
[2020-10-24] MEDS ORDERED: NA CHLORIDE 0.9% 500 ML ONE (07:52)
--- NOTE | 2020-10-24 08:09 | RAD REPORT ---
EXAM DESCRIPTION: CT - Abdomen Pelvis W Contrast - 10/24/2020 7:36 am CLINICAL HISTORY: Abdominal pain / wound dehiscence COMPARISON: 2018 TECHNIQUE: Computed axial tomography of the abdomen pelvis was obtained. 100 cc Isovue-300 was admin istered intravenously. Oral contrast was not requested which limits evaluation of bowel. All CT scans are performed using dose optimization technique as appropriate and may include automated exposure control or mA/KV adjustment according to patient size. FINDINGS: Mild right lower lobe atelectasis The liver, spleen, pancreas, adrenal and kidneys appear unremarkable. Postsurgical changes of an ileostomy reversal. There is no evidence of diverticulitis.. The wall of several loops of jejunum is moderately thickened. Along the superior aspect of the incision of the anterior abdominal wall is a wound dehiscence measur ing 2 centimeters containing fat. Fluid is present within the anterior subcutaneous fat measuring 5 x 2 centimeters. In the right paraumbilical region is a a defect of the abdominal wall measuring 6 millimeters. 4.5 ce ntimeters to the right of midline at this level is an additional defect of abdominal wall measuring 1 centimeter. A fluid collection lies within adjacent anterior subcutaneous fat measuring 4.7 by 2.1 c entimeters 3 centimeter fluid collection within the posterior pelvis IMPRESSION: Moderate thickening of the wall of several loops of jejunum probably representing inflam mation. Ischemia can also result in this appearance Wound dehiscences involving the anterior abdominal wall 3 centimeter fluid collection within the posterior pelvis may represent a small abscess
[2020-10-24] MEDS ORDERED: PROMETHAZINE INJ 25 MG/ML AMP ONE ×2 (08:11→10:03)
[2020-10-24] MEDS ORDERED: HYDROMORPHONE HCL 1 MG/ML INJ ONE (09:22)
[2020-10-24] MEDS ORDERED: NA CHLORIDE 0.9% 100 ML ONE (09:22)
--- NOTE | 2020-10-24 10:07 | ER ---
Nurse's Notes [facility] Name: Jessica Stearns Age: 45 yrs Sex: Female : 1975 Arrival Date: 10/24/2020 Time: 05:46 Bed 7 Private MD: Diagnosis: Abdominal and pelvic pain;abdominal Wound dehiscence;Hypokalemia Presentation: 10/24 06:06 Chief complaint: Patient states: ileostomy reversal on 10/14/20. pt reports that she dm5 had nausea yesterday and has vomited x3, pt also reports diarrhea x 6 within the last few hours. Pt has some wound dehiscence with purulent drainage abdominal surgical site. 06:12 Coronavirus screen: diarrhea, nausea, Client presents with at least one sign or symptom dm5 that may indicate coronavirus-19. Standard/surgical mask placed on the client. Ebola Screen: Patient negative for fever greater than or equal to 101.5 degrees Fahrenheit, and additional compatible Ebola Virus Disease symptoms Patient denies exposure to infectious person. Patient denies travel to an Ebola-affected area in the 21 days before illness onset. No symptoms or risks identified at this time. Initial Sepsis Screen: Does the patient meet any 2 criteria? HR > 90 bpm. No. Patient's initial sepsis screen is negative. Does the patient have a suspected source of infection? Yes: Skin breakdown/wound. Risk Assessment: Do you want to hurt yourself or someone else? Patient reports no desire to harm self or others. Onset of symptoms was October 23, 2020. 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 - Hospitalizations: : Patient was recently seen at. Screenin:30 Abuse screen: Denies threats or abuse. Nutritional screening: No deficits noted. em Tuberculosis screening: No symptoms or risk factors identified. Fall Risk None identified. Assessment: 07:30 General: Appears in no apparent distress. uncomfortable, Behavior is calm, cooperative, em Denies fever. Pain: Complains of pain in abdomen Pain currently is 10 out of 10 on a pain scale. Neuro: Level of Consciousness is awake, alert, obeys commands, Oriented to person, place, time, situation, Appropriate for age. Cardiovascular: Capillary refill < 3 seconds Patient's skin is warm and dry. Respiratory: Airway is patent Respiratory effort is even, unlabored, Respiratory pattern is regular, symmetrical. GI: Abdomen is flat, asia noted to the abdomen, drainage noted, no redness noted Reports lower abdominal pain, nausea, vomiting. Derm: Skin is intact, is healthy with good turgor, Skin is pink, warm \T\ dry. Musculoskeletal: Capillary refill < 3 seconds, Range of motion: intact in all extremities. 11:00 Reassessment: report given to ZARA Tierney at [facility], pending EMS transportation. em 11:15 Reassessment: pt request something to sleep like Benadryl, Dr. Steve notified, em received VO for Benadryl 25 mg IVP x 1. 12:00 Reassessment: Patient appears in no apparent distress at this time. Patient and/or em family updated on plan of care and expected duration. Pain level reassessed. Patient is alert, oriented x 3, equal unlabored respirations, skin warm/dry/pink. 12:18 Reassessment: report given to [facility], will transport pt to [place]. em Vital Signs: 06:11 BP 130 / 82; Pulse 110; Resp 20; Temp 97.9; Pulse Ox 100% on R/A; Weight 61.23 kg; dm5 Height 5 ft. 7 in. (170.18 cm); Pain 10/10; 07:30 BP 124 / 89; Pulse 106; Resp 18; Pulse Ox 100% on R/A; Pain 10/10; em 09:59 BP 110 / 80; Pulse 68; Resp 18; Pulse Ox 99% on R/A; em 11:00 BP 128 / 77; Pulse 103; Resp 20; Pulse Ox 99% on R/A; Pain 7/10; em 06:11 Body Mass Index 21.14 (61.23 kg, 170.18 cm) dm5 ED Course: 05:46 Patient arrived in ED. cl3 05:59 Gerry Torres MD is Attending Physician. rn 06:12 Monica Bain, ZARA is Primary Nurse. aj1 06:12 Triage completed. dm5 06:12 Arm band placed on right wrist. Patient placed in an exam room, on a stretcher. dm5 06:45 Inserted saline lock: 18 gauge in right forearm, using aseptic technique. Blood rv collected. 06:45 Initial lab(s) drawn, by me, sent to lab. First set of blood cultures drawn by me. rv 06:57 Second set of blood cultures drawn by me. rv 07:30 Patient has correct armband on for positive identification. Placed in gown. Bed in low em position. Call light in reach. Side rails up X2. Pulse ox on. NIBP on. 07:32 Attending Physician role handed off by Gerry Torres MD kdr 07:32 Dc Steve MD is Attending Physician. kdr 07:36 CT Abd/Pelvis - IV Contrast Only In Process Unspecified. EDMS 09:09 initiated a transfer with Wing from the [facility] transfer Center. eb 09:[address] Chun the General Surgeon yeast fermentation attendant for [facility] with Dr. Evi hudson for patient transfer consultation. 09:54 administrative approval given by Wing Ramirez Rn/ patient has been accepted to [facility] ER. Dr. Chun has accepted the patient in transfer/ report to be called to [phone]. 12:17 No provider procedures requiring assistance completed. Patient transferred, IV remains em in place. Administered Medications: 07:48 Drug: Benadryl 25 mg Route: IVP; Site: right forearm; em 08:00 Follow up: Response: No adverse reaction em 07:48 Drug: NS 0.9% 500 ml Route: IV; Rate: bolus; Site: right forearm; em 10:00 Follow up: IV Status: Completed infusion; IV Intake: 500ml em 07:50 Drug: morphine 4 mg Route: IVP; Site: right forearm; em 08:15 Follow up: Response: No adverse reaction; No change in condition; Pain is unchanged, em physician notified; RASS: Alert and Calm (0) 08:00 Drug: Phenergan 12.5 mg Route: IVP; Site: right forearm; em 10:00 Follow up: Response: No adverse reaction em 08:07 Drug: vancoMYCIN 1 grams Route: IVPB; Infused Over: 2 hrs; Site: right forearm; em 11:15 Follow up: Response: No adverse reaction; IV Status: Completed infusion; IV Intake: em 250ml 09:15 Drug: Dilaudid 1 mg Route: IVP; Site: right forearm; em 10:00 Follow up: Response: No adverse reaction; Marked relief of symptoms; Pain is decreased em 09:16 Drug: Phenergan 12.5 mg Route: IVP; Site: right forearm; em 12:00 Follow up: Response: No adverse reaction; Marked relief of symptoms; Nausea is decreasedem 11:15 Drug: Benadryl 25 mg Route: IVP; Site: right forearm; em 12:00 Follow up: Response: No adverse reaction; Marked relief of symptoms em Intake: 10:00 IV: 500ml; Total: 500ml. em 11:15 IV: 250ml; Total: 750ml. em Outcome: 10:07 ER care complete, transfer ordered by . kdr 12:20 Transferred by ground EMS to [facility], Transfer form em completed. X-rays sent w/ patient. 12:20 Condition: stable 12:20 Instructed on the need for transfer, Demonstrated understanding of instructions. 12:24 Patient left the ED. em Signatures: Dispatcher [employer] Monica Hill RN RN Mehnaz Duran RN RN dm5 Dc Steve MD MD kdr Munoz, Edgar, RN RN em Nieto, Roman, MD MD rn Botello, Elizabeth eb Vicente, Ronaldo, RN RN rv Lewis, Charde cl3
--- NOTE | 2020-10-24 10:08 | EDPHYS ---
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 06:05 The patient presents to the emergency department with nausea, vomiting, diarrhea, rn abdominal pain. Onset: The symptoms/episode began/occurred last night. Possible causes: unknown. The symptoms are aggravated by movement, pressure, The symptoms are alleviated by nothing. Severity of symptoms: At their worst the symptoms were moderate in the emergency department the symptoms are unchanged. The patient has not experienced similar symptoms in the past. The patient has been recently seen by a physician:. Reports ileostomy reversal surgery 10 days ago at [facility], was not sent home on abx, woke up tonight with drainage from wound and increased abd pain. No fever. + nausea/vomiting/diarrhea. . 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 - Hospitalizations: : Patient was recently seen at. ROS: 06:05 Constitutional: Negative for fever, chills, and weight loss, Eyes: Negative for injury, rn pain, redness, and discharge, Cardiovascular: Negative for chest pain, palpitations, and edema, Respiratory: Negative for shortness of breath, cough, wheezing, and pleuritic chest pain, Abdomen/GI: + abd pain/nausea/vomiting/diarrhea Back: Negative for injury and pain, : Negative for injury, bleeding, discharge, and swelling, MS/Extremity: Negative for injury and deformity, Skin: + anterior abd surgical wound with drainage Neuro: Negative for headache, weakness, numbness, tingling, and seizure. Exam: 06:05 Constitutional: This is a well developed, well nourished patient who is awake, alert, rn appears uncomfortable Head/Face: Normocephalic, atraumatic. Eyes: Pupils equal round and reactive to light, extra-ocular motions intact. ENT: MMM Cardiovascular: Tachycardic, regular Respiratory: No increased work of breathing, no retractions or nasal flaring. Abdomen/GI: soft, + tender in all 4 quadrants, worse bilateral lower quadrants, + ventral wound with asia, areas of partial dehiscence with purulent drainage and tenderness. Skin: Warm MS/ Extremity: Pulses equal, no cyanosis. Neuro: Awake and alert, GCS 15 Vital Signs: 06:11 BP 130 / 82; Pulse 110; Resp 20; Temp 97.9; Pulse Ox 100% on R/A; Weight 61.23 kg; dm5 Height 5 ft. 7 in. (170.18 cm); Pain 10/10; 07:30 BP 124 / 89; Pulse 106; Resp 18; Pulse Ox 100% on R/A; Pain 10/10; em 09:59 BP 110 / 80; Pulse 68; Resp 18; Pulse Ox 99% on R/A; em 11:00 BP 128 / 77; Pulse 103; Resp 20; Pulse Ox 99% on R/A; Pain 7/10; em 06:11 Body Mass Index 21.14 (61.23 kg, 170.18 cm) dm5 MDM: 05:59 Patient medically screened. rn 10:07 Data reviewed: vital signs, nurses notes. Counseling: I had a detailed discussion with kdr the patient and/or guardian regarding: the historical points, exam findings, and any diagnostic results supporting the discharge/admit diagnosis, lab results, radiology results, the need to transfer to another facility. 10/24 06:05 Order name: Basic Metabolic Panel; Complete Time: 07:33 rn 10/24 06:05 Order name: CBC with Diff; Complete Time: 07:33 rn 10/24 06:05 Order name: Hepatic Function; Complete Time: 07:33 rn 10/24 06:05 Order name: Wound Culture rn 10/24 06:05 Order name: Procalcitonin; Complete Time: 08:50 rn 10/24 06:05 Order name: Blood Culture Adult (2) rn 10/24 06:05 Order name: CT Abd/Pelvis - IV Contrast Only; Complete Time: 08:50 rn 10/24 07:13 Order name: Lipase; Complete Time: 07:33 EDMS 10/24 07:37 Order name: COVID-19: Transfer eb 10/24 09:09 Order name: SARS-COV-2 RT PCR; Complete Time: 09:30 EDMS 10/24 06:05 Order name: IV Saline Lock; Complete Time: 07:09 rn 10/24 06:05 Order name: Labs collected and sent; Complete Time: 07:10 rn Administered Medications: 07:48 Drug: Benadryl 25 mg Route: IVP; Site: right forearm; em 08:00 Follow up: Response: No adverse reaction em 07:48 Drug: NS 0.9% 500 ml Route: IV; Rate: bolus; Site: right forearm; em 10:00 Follow up: IV Status: Completed infusion; IV Intake: 500ml em 07:50 Drug: morphine 4 mg Route: IVP; Site: right forearm; em 08:15 Follow up: Response: No adverse reaction; No change in condition; Pain is unchanged, em physician notified; RASS: Alert and Calm (0) 08:00 Drug: Phenergan 12.5 mg Route: IVP; Site: right forearm; em 10:00 Follow up: Response: No adverse reaction em 08:07 Drug: vancoMYCIN 1 grams Route: IVPB; Infused Over: 2 hrs; Site: right forearm; em 11:15 Follow up: Response: No adverse reaction; IV Status: Completed infusion; IV Intake: em 250ml 09:15 Drug: Dilaudid 1 mg Route: IVP; Site: right forearm; em 10:00 Follow up: Response: No adverse reaction; Marked relief of symptoms; Pain is decreased em 09:16 Drug: Phenergan 12.5 mg Route: IVP; Site: right forearm; em 12:00 Follow up: Response: No adverse reaction; Marked relief of symptoms; Nausea is decreasedem 11:15 Drug: Benadryl 25 mg Route: IVP; Site: right forearm; em 12:00 Follow up: Response: No adverse reaction; Marked relief of symptoms em Disposition: 10/24/20 10:07 Transfer ordered to [facility]. Diagnosis are Abdominal and pelvic pain, abdominal Wound dehiscence, Hypokalemia. - Reason for transfer: Higher level of care. - Accepting physician is Phatak. - Condition is Fair. - Problem is an acute exacerbation. - Symptoms have improved. Signatures: Dispatcher [employer] [facility] Dc Steve MD MD kdr Segundo Pablo, RN RN Gerry Torres MD MD furnace operator oil or gas: (The following items were deleted from the chart) 07:14 06:05 LIPASE+C.LAB.BRZ ordered. [facility] EDOH 11:16 08:24 CORONAVIRUS ordered. [facility] EDOH 12:24 10:07 10/24/2020 10:07 [facility] Diagnosis is Abdominal and em pelvic pain; abdominal Wound dehiscence; Hypokalemia. Reason for transfer: Higher level of care. Accepting physician is Phatak. Condition is Fair. Problem is an acute exacerbation. Symptoms have improved. kdr
[2020-10-29 15:53] VITALS: TEMP 97.9
[2020-10-29 15:55] VITALS: O2SAT 99
[2020-10-29 15:57] VITALS: BP 128/77
== END 2020-10-24 12:24 | disposition short-term general hospital (02) ==
LOC: ER 05:44
DX: T81.31XA Disruption of external operation (surgical) wound, not elsewhere classified, initial encounter (principal); E87.6 Hypokalemia; Z20.828 Contact with and (suspected) exposure to other viral communicable diseases; Z88.2 Allergy status to sulfonamides; Z88.5 Allergy status to narcotic agent; Z88.8 Allergy status to other drugs, medicaments and biological substances
CPT/HCPCS: 36415; 74177; 80048; 80076; 83690; 84145; 85025; 87040; 87070; 87205; 96365; 96366; 96375; 99285; J1170; J1200; J2550; J3370; J7040; Q9967; U0003

== ENCOUNTER 2020-11-01 07:27 | Emergency (ER) | payer SELFPAY ==
--- OUTSIDE RECORDS SUMMARY | 2020-11-01 07:28 | XMS REPORT | Clinical Summary ---
:1975 Author Organization [facility] Address [address] [place] [address] Care Team Providers Name Role Phone Unavailable [...] Assigned at Date Recorded Not on file Last Filed Vital Signs Not on file Plan of Treatment Health Maintenance Due Date Last Done Comments HPV Cervical Cancer Scrn 2004 Pap Cervical Cancer Scrn 2004 Breast Cancer Scrn (Yearly) 2014 IMM Influenza Seasonal Aug to January (>/= 19 yrs) 08/15/2020 Results Not on fileafter 11/01/2019 Insurance Payer Benefit Plan / Subscriber ID Effective Phone Address T ype Group Dates THEODORE JAIMES [id number] 2016-Prese [phone] [address] [facility] [place] [address] [address] [place] [address] [place] [id number] TANF SARAVIA [id number] 2013-Pres [phone] [id number] [place] [address] Advance Directives Code Status Date Activated Date Inactivated Comments Full Code 09/04/2013 10:33 PM 09/05/2013 7:10 PM
--- OUTSIDE RECORDS SUMMARY | 2020-11-01 07:29 | XMS REPORT | Continuity of Care Document ---
:1975 Author Organization [facility] t Address [address] [place] [address] Care Team Providers Name Role Phone Damon Attending Clinician Adiel FOREMAN Attending Clinician James RN, E [...] Health 00:00: 00 Tooth Tooth Disease Active [place] decayed decayed Health Allergies, Adverse Reactions, Alerts Allergy Allergy Status Severity Reaction(s) Onset Inactive Treating Comm ents Source Name Type Date Date Clinician Metoclop Propensi Active Rash 2012-11 [place] ramide ty to 0-21 Health adverse 00:00: reaction 00 s to drug Sulfa Propensi Active Rash 2012-11 [place] (Sulfona ty to 0-21 Health mide adverse 00:00: Antibiot reaction 00 ics) s to drug Ketorola Propensi Active Rash 2012-11 [place] c ty to 0-21 Health Trometha adverse 00:00: mine reaction 00 s to drug Ondanset Propensi Active Rash 2012-11 [place] charu Hcl ty to 0-21 Health (Pf) adverse 00:00: reaction 00 s to drug Social History Social Habit Start Date Stop Date Quantity Comments Source Alcohol Comment social (beer, [facility] wine) Sex Assigned At [facility] alth Alcohol intake 2013-09-04 2013-09-04 Current drinker Addie marquez [facility] 00:00:00 00:00:00 of alcohol (finding) Smoking Status Start Date Stop Date Source Never smoker [facility] Medications Ordered Filled Start Stop Current Ordering Indication Dosage Frequency Signature Comments Components Source Medication Medication Date Date Medication? Clinician (SIG) Name Name pantoprazol Yes 20mg QD Take 20 mg [place] e 23 by [employer] (PROTONIX) 23:40: daily. 20 mg 31 delayed release tablet HYDROcodone 2012-11 Yes Periapical 1{tbl} Take 1 [place] -acetaminop 0-22 abscess tablet by Health hen (NORCO) 00:00: mouth 10-325 mg 00 every 6 tablet hours as needed for Pain. HYDROcodone 2012-11 Yes Caries 1{tbl} Take 1 [place] -acetaminop 0-21 tablet by [facility] hen (NORCO) 00:00: mouth 5-325 mg 00 every 6 tablet hours as needed for Pain. Procedures This patient has no known procedures. Plan of Care Planned Activity Planned Date Details Comments Source Future Scheduled Test 2020-08-15 00:00:00 IMM Influenza [facility] Seasonal Aug to January (>/= 19 yrs) [code = IMM Influenza Seasonal Aug to January (>/= 19 yrs)] Future Scheduled Test 2014 00:00:00 Breast Cancer Scrn [facility] (Yearly) [code = Breast Cancer Scr (Yearly)] Future Scheduled Test 2004 00:00:00 Screening for [facility] malignant neoplasm of cervix (procedure) [code = 760442102] Future Scheduled Test 2004 00:00:00 Screening for [facility] malignant neoplasm of cervix (procedure) [code = 679753765] Encounters Start End Encounter Admission Attending Care Care Encounter Source Date/Time Date/Time Type Type Clinicians Facility Department ID 2020-10-31 2020-10-31 Transition Anne Damon [id number] 00:00:00 00:00:00 of Care Lynda Foleyy [id number] [place] [id number] 2020-10-24 2020-10-30 [facility] [place] [id number] 13:38:00 19:38:00 Encounter Jayy [id number] [place] [id number] 2020-10-21 2020-10-21 Transition Anne Damon [id number] 00:00:00 00:00:00 of Care Lynda Narayanan [id number] [place] [id number] 2020-10-14 2020-10-19 [facility] [place] [id number] 05:48:00 15:50:00 Encounter Jayy [id number] [id number] 2020-10-16 2020-10-16 Patient Deepika Ramirezmamie [id number] 00:00:00 00:00:00 Outreach E Narayanan [id number] [place] [id number] 2020-10-14 2020-10-14 Orders Doctor LETICIA [id number] 00:00:00 00:00:00 Only Unassigned, JAYY [id number] [place] [facility] [id number] 2020 2020 Laboratory Only, Adc [facility] [id number] 14:56:46 15:11:46 Only Test Michela [id number] [place] [id number] [place] [id number] 2020-10-07 2020-10-07 Patient Deepika Ramirez [id number] 00:00:00 00:00:00 Outreach E Oracio [id number] [place] [id number] 2019-12-09 2019-12-09 Emergency E MHSE [id number] MH 09:16:00 [facility]16[facility] Results This patient has no known results.
--- OUTSIDE RECORDS SUMMARY | 2020-11-01 07:41 | XMS REPORT | Summary of Care ---
:1975 Author Organization [facility] Address [address] [place] [address] Care Team Providers Name Role Phone Pcp, Does Not Have A Primary Care Provider Annmarie Ramirez form press operator Yen Fuentes [employer]UNCH COMMANDER Algebra Teacher Unavailable Reason for Visit Reason Comments Transition Of Care Encounter Details Date Type Department Care Team Description 10/21/2020 Transition of Care [facility] Edis Damon Transition Of Care Health [facility]- [address] [place] [address] Allergies Active Allergy Reactions Severity Noted Date [...] as of this encounter (statuses as of 10/24/2020) Medications Medication Sig Dispensed Refills Start Date End Date Status Pantoprazole Take 40 mg by 0 Act pasha (PROTONIX) 40 mg mouth 2 (two) delayed-release times daily. suspension metoprolol tartrate Take 1 tablet by 60 tablet 0 08/24/2019 Active 25 mg mouth 2 (two) tabletIndications: times daily. Tachycardia acetaminophen 325 mg Take 2 tablets 50 tablet 1 08/01/2020 Active tabletIndications: by mouth every 6 SBO (small bowel (six) hours. obstruction) HYDROcodone-acetamino Take 1 tablet by 14 tablet 0 09/18/2020 Active phen 5-325 mg mouth every 6 [...] chronic pain (scale 1-3). Indications: chronic pain HYDROcodone-acetamino Take 1 tablet by 20 tablet 0 10/19/2020 Active phen (NORCO) 10-325 mouth every 6 mg tabletIndications: (six) hours as acute pain needed for Pain (scale 7-10). Indications: acute pain ibuprofen 600 mg Take 1 tablet by 30 tablet 0 10/19/2020 Active tabletIndications: mouth every 6 Crohn's disease of (six) hours as colon with needed for Pain complication (scale 1-3). simethicone 80 mg Take 1 tablet by 20 tablet 0 10/19/202010/15 Active chewable mouth after tabletIndications: meals and at Crohn's disease of bedtime for 5 colon with days. complication gabapentin 300 mg Take 1 capsule 42 capsule 0 10/19/202011/02 Active capsuleIndications: by mouth 3 Crohn's disease of (three) times colon with daily for 14 complication days. ALPRAZolam 2 mg Take 1 tablet by 14 tablet 0 10/19/20202019 Active tabletIndications: mouth 2 (two) Crohn's disease of times daily for colon with 7 days. complication proMETHazine 25 mg Take 1 tablet by 21 tablet 0 10/19/2020 Active tabletIndications: mouth every 8 Crohn's disease of (eight) hours as colon with needed for complication Nausea and Vomiting (N/V). documented as of this encounter (statuses as of 10/24/2020) Active Problems Problem Noted Date Elective surgery 10/14/2020 Ileostomy care 09/27/2020 Overview: Added automatically from request for kamilah domingo [id number] Acute renal failure 09/25/2020 Renal failure 09/25/2020 E44.0 Moderate protein calorie malnutrition 09/25/2020 JULIAN (acute kidney injury) 09/13/2020 Abdominal pain 09/04/2020 Abdominal pain, generalized 09/03/2020 Overview: Added automatically from request for kamilah domingo [id number] SBO (small bowel obstruction) 07/24/2020 Crohn's disease of colon with complication 07/23/2020 Overview: Added automatically from request for kamilah domingo [id number] Sinus tachycardia 08/23/2019 Pneumonia 08/18/2019 Drug-seeking behavior 03/10/2019 Multifocal pneumonia 01/24/2018 Dehydration 01/05/2018 IBS (irritable bowel syndrome) 10/02/2011 Depression 10/02/2011 documented as of this encounter (statuses as of 10/24/2020) Social History Tobacco Use Types Packs/Day Years [...] with No / Unsure 10/14/2020 12:49 PM GARNETT FEEDER someone who was confirmed or suspected to have Coronavirus / COVID-19? documented as of this encounter Last Filed Vital Signs Not on filedocumented in this encounter Miscellaneous Notes Telephone Encounter - Lynda Damon - 10/24/2020 12:52 PM CST2nd call left message on recorder to return call. elephone Encounter - Lynda Damon - 10/21/2020 10:50 AM GARNETT FEEDER TRANSITIONAL CARE MANAGEMENT ASSESSMENT 10/21/2020 Jessica Stearns [id number] Jessica Stearns is a 45 year old Black or female was admitted on 10/14/[address] She was discharged on 10/19/20 with discharge disposition of HR- Routine Discharge. Admitting Physician: Precious Chun Discharge Diagnosis:Ileostomy and mucous fistula Lift message with family member to return call. No linked episodes TCM Qyc-[id number]-rp-face outreach documentation: Future Appointments: documented in this [...] ty Pending PENDING PENDING sent NIYAH Kern [phone] documented as of this encounter
--- OUTSIDE RECORDS SUMMARY | 2020-11-01 07:43 | XMS REPORT | Summary of Care ---
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- [address] [place] [id number] Allergies Active Allergy Reactions Severity Noted Date [...] as of this encounter (statuses as of 10/31/2020) Medications Medication Sig Dispensed Refills Start Date End Date Status Pantoprazole Take 40 mg by 0 Act pasha (PROTONIX) 40 mg mouth 2 (two) delayed-release times daily. suspension opium 10 mg/mL Take 1 mL by 1 Bottle 0 09/27/2020 A ctive (morphine) mouth every 6 tinctureIndications: (six) hours. Ileostomy care ALPRAZolam 2 mg Take 1 tablet by 14 tablet 0 10/30/20202019 Active tabletIndications: mouth 2 (two) Wound dehiscence times daily for 7 days. HYDROcodone-acetaminop Take 1 tablet by 28 tablet 0 10/30/2020 11/06/2020 Active hen (NORCO) 10-325 mg mouth every 6 tabletIndications: (six) hours as acute pain needed for Pain (scale 7-10) for up to 7 days. Indications: acute pain ibuprofen 800 mg Take 1 tablet by 56 tablet 0 10/30/202011/13 Active tabletIndications: mouth every 6 Wound dehiscence (six) hours as needed for Pain (scale 1-3) for up to 14 days. proMETHazine 25 mg Take 1 tablet by 42 tablet 0 10/30/2020 Active tabletIndications: mouth every 8 Wound dehiscence (eight) hours as needed for Nausea and Vomiting (N/V) for up to 14 days. simethicone 80 mg Take 1 tablet by 14 tablet 0 10/30/2020 Active chewable mouth at bedtime tabletIndications: as needed for Wound dehiscence Gas. ciprofloxacin HCl 500 Take 1 tablet by 28 tablet 0 10/30/2020 Active mg tabletIndications: mouth every 12 Wound dehiscence (twelve) hours. metroNIDAZOLE 500 mg Take 1 tablet by 42 tablet 0 10/30/2020 Active tabletIndications: mouth every 8 Wound dehiscence (eight) hours. metoprolol tartrate 25 Take 1 tablet by 60 tablet 0 10/30/2020 Active mg tabletIndications: mouth 2 (two) Tachycardia times daily. documented as of this encounter (statuses as of 10/31/2020) Active Problems Problem Noted Date E46 Unspecified severe protein-calorie malnutrition 1 12/26/2019 Wound dehiscence 10/24/2020 Elective surgery 10/14/2020 Ileostomy care 09/27/2020 Overview: Added automatically from request for [address] [id number] Acute renal failure 09/25/2020 Renal failure 09/25/2020 E44.0 Moderate protein calorie malnutrition 09/25/2020 JULIAN (acute kidney injury) 09/13/2020 Abdominal pain 09/04/2020 Abdominal pain, generalized 09/03/2020 Overview: Added automatically from request for [address] [id number] SBO (small bowel obstruction) 07/24/2020 Crohn's disease of colon with complication 07/23/2020 Overview: Added automatically from request for [address] [id number] Sinus tachycardia 08/23/2019 Pneumonia 08/18/2019 Drug-seeking behavior 03/10/2019 Multifocal pneumonia 01/24/2018 Dehydration 01/05/2018 IBS (irritable bowel syndrome) 10/02/2011 Depression 10/02/2011 documented as of this encounter (statuses as of 10/31/2020) Social History Tobacco Use Types Packs/Day Years [...] been in contact with No / Unsure 10/24/2020 1:50 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
--- OUTSIDE RECORDS SUMMARY | 2020-11-01 07:43 | XMS REPORT | Summary of Care ---
:1975 Author Organization [facility] - [facility] Address [address] [place] [id number] Care Team Providers Name Role Phone Pcp, Does Not Have A Primary Care Provider Annmarie Ramirez range feeder Yen Fuentes OVEN OPERATOR State Inspector Unavailable Reason for Referral Other (Routine) Status Reason Specialty Diagnoses / Referred By Referred To Procedures Contact Contact New Request Diagnoses Wound dehiscence Darren Clark MD Phatak, Uma, MD Procedures Discharge Follow-up: Specialty Provider DARREN CLARK; 1 Week Discharge Follow-up: Specialty Provider DARREN CLARK; 2 Weeks [address] [facility] [place] [address] [address] [place] [address] Phone: Fax: MRI/CAT Scan (STAT) Status Reason Specialty Diagnoses / Referred By Referred To Procedures Contact Contact New Request Diagnostic Diagnoses Irritable bowel syndrome, unspecified type Darren Clark MD Radiology Procedures CT ABDOMEN PELVIS W CONTRAST [address] [facility] [address] [place] [address] Reason for Visit Reason Comments Referral/consult Auth/Cert Status Reason Specialty Diagnoses / Referred By Referred To Procedures Contact Contact Emergency Diagnoses ilestomy complication Ed-Emergency Dept Medicine [address] [place] [phone] Fax: Encounter Details Date Type Department Care Team Description 10/24/2020 - Hospital Encounter [facility] (Darren Langford MD Wound dehiscence 10/30/2020 11C) [id number] [place] [address] [facility] [address] [place] [address] [phone] Allergies Active Allergy Reactions Severity Noted Date [...] as of this encounter (statuses as of 10/30/2020) Medications Medication Sig Dispensed Refills Start Date End Date Status Pantoprazole Take 40 mg by 0 Act pasha (PROTONIX) 40 mg mouth 2 (two) delayed-release times daily. suspension opium 10 mg/mL Take 1 mL by 1 Bottle 0 09/27/2020 A ctive (morphine) mouth every 6 tinctureIndication (six) hours. s: Ileostomy care ALPRAZolam 2 mg Take 1 tablet 14 tablet 0 10/30/2020 Active tabletIndications: by mouth 2 0 Wound dehiscence (two) times daily for 7 days. HYDROcodone-acetam Take 1 tablet 28 tablet 0 10/30/2020 Active inophen (NORCO) by mouth 0 10-325 mg every 6 (six) tabletIndications: hours as acute pain needed for Pain (scale 7-10) for up to 7 days. Indications: acute pain ibuprofen 800 mg Take 1 tablet 56 tablet 0 10/30/2020 11/13/20 2 Active tabletIndications: by mouth 0 Wound dehiscence every 6 (six) hours as needed for Pain (scale 1-3) for up to 14 days. proMETHazine 25 mg Take 1 tablet 42 tablet 0 10/30/2020 Active tabletIndications: by mouth 0 Wound dehiscence every 8 (eight) hours as needed for Nausea and Vomiting (N/V) for up to 14 days. simethicone 80 mg Take 1 tablet 14 tablet 0 10/30/2020 Active chewable by mouth at tabletIndications: bedtime as Wound dehiscence needed for Gas. ciprofloxacin HCl Take 1 tablet 28 tablet 0 10/30/2020 Active 500 mg by mouth tabletIndications: every 12 Wound dehiscence (twelve) hours. metroNIDAZOLE 500 Take 1 tablet 42 tablet 0 10/30/2020 Active mg by mouth tabletIndications: every 8 Wound dehiscence (eight) hours. metoprolol Take 1 tablet 60 tablet 0 10/30/2020 Acti ve tartrate 25 mg by mouth 2 tabletIndications: (two) times Tachycardia daily. metoprolol Take 1 tablet 60 tablet 0 08/24/2019 Disc ontinued tartrate 25 mg by mouth 2 0 (Reo rder) tabletIndications: (two) times Tachycardia daily. acetaminophen 325 Take 2 50 tablet 1 08/01/2020 D iscontinued mg tablets by 0 tabletIndications: mouth every 6 SBO (small bowel (six) hours. obstruction) HYDROcodone-acetam Take 1 tablet 14 tablet 0 09/18/2020 Discontinued inophen 5-325 mg by mouth 0 tabletIndications: every 6 (six) acute pain hours as needed for Pain (scale 4-6). Indications: acute pain psyllium 3.4 gram Take 1 Packet 90 Packet 0 09/27/2020 02 Discontinued packetIndications: by mouth 3 0 Chest pain, (three) times unspecified type daily before meals for 30 days. acetaminophen-code Take 1 tablet 30 tablet 0 10/02/2020 Discontinued ine by mouth 0 (TYLENOL-CODEINE every 4 #3) 300-30 mg (four) hours tabletIndications: as needed for chronic pain Pain (scale 1-3). Indications: chronic pain HYDROcodone-acetam Take 1 tablet 20 tablet 0 10/19/2020 Discontinued inophen (NORCO) by mouth 0 10-325 mg every 6 (six) tabletIndications: hours as acute pain needed for Pain (scale 7-10). Indications: acute pain ibuprofen 600 mg Take 1 tablet 30 tablet 0 10/19/2020 10/24/20 2 Discontinued tabletIndications: by mouth 0 Crohn's disease of every 6 (six) colon with hours as complication needed for Pain (scale 1-3). simethicone 80 mg Take 1 tablet 20 tablet 0 10/19/2020 02 Discontinued chewable by mouth 0 tabletIndications: after meals Crohn's disease of and at colon with bedtime for 5 complication days. gabapentin 300 mg Take 1 42 capsule 0 10/19/2020 Discontinued capsuleIndications capsule by 0 : Crohn's disease mouth 3 of colon with (three) times complication daily for 14 days. ALPRAZolam 2 mg Take 1 tablet 14 tablet 0 10/19/2020 Discontinued tabletIndications: by mouth 2 0 Crohn's disease of (two) times colon with daily for 7 complication days. proMETHazine 25 mg Take 1 tablet 21 tablet 0 10/19/2020 Discontinued tabletIndications: by mouth 0 Crohn's disease of every 8 colon with (eight) hours complication as needed for Nausea and Vomiting (N/V). ciprofloxacin HCl Take 1 tablet 28 tablet 0 10/30/2020 02 Discontinued 500 mg by mouth 0 tabletIndications: every 12 Wound dehiscence (twelve) hours for 14 days. metroNIDAZOLE 500 Take 1 tablet 42 tablet 0 10/30/2020 02 Discontinued mg by mouth 0 tabletIndications: every 8 Wound dehiscence (eight) hours for 14 days. ciprofloxacin HCl Take 1 tablet 28 tablet 0 10/30/2020 02 Discontinued 500 mg by mouth 0 tabletIndications: every 12 Wound dehiscence (twelve) hours. metroNIDAZOLE 500 Take 1 tablet 42 tablet 0 10/30/2020 02 Discontinued mg by mouth 0 tabletIndications: every 8 Wound dehiscence (eight) hours. metoprolol Take 1 tablet 60 tablet 0 10/30/2020 Disc ontinued tartrate 25 mg by mouth 2 0 (Reo rder) tabletIndications: (two) times Tachycardia daily. documented as of this encounter (statuses as of 10/30/2020) Active Problems Problem Noted Date E46 Unspecified severe protein-calorie malnutrition 1 12/26/2019 Wound dehiscence 10/24/2020 Elective surgery 10/14/2020 Ileostomy care 09/27/2020 Overview: Added automatically from request for [address] [id number] Acute renal failure 09/25/2020 Renal failure 09/25/2020 E44.0 Moderate protein calorie malnutrition 09/25/2020 JULIAN (acute kidney injury) 09/13/2020 Abdominal pain 09/04/2020 Abdominal pain, generalized 09/03/2020 Overview: Added automatically from request for [address] [id number] SBO (small bowel obstruction) 07/24/2020 Crohn's disease of colon with complication 07/23/2020 Overview: Added automatically from request for [address] [id number] Sinus tachycardia 08/23/2019 Pneumonia 08/18/2019 Drug-seeking behavior 03/10/2019 Multifocal pneumonia 01/24/2018 Dehydration 01/05/2018 IBS (irritable bowel syndrome) 10/02/2011 Depression 10/02/2011 documented as of this encounter (statuses as of 10/30/2020) Social History Tobacco Use Types Packs/Day Years [...] with No / Unsure 10/24/2020 1:50 PM [facility] someone who was confirmed or suspected to have Coronavirus / COVID-19? documented as of this encounter Last Filed Vital Signs Vital Sign Reading Time Taken Comments Blood Pressure 92/65 10/30/2020 4:01 PM [facility] Pulse 104 10/30/2020 4:01 PM [facility] Temperature 36.8 C (98.3 F) 10/30/2020 4:01 PM [facility] Respiratory Rate 18 10/30/2020 4:01 PM [facility] Oxygen Saturation 96% 10/30/2020 4:01 PM [facility] Inhaled Oxygen Concentration - - Weight 61.2 kg (134 lb 14.7 oz) 10/24/2020 1:35 PM [facility] Height - - Body Mass Index 21.13 10/14/2020 6:21 AM [facility] documented in this encounter Discharge Summaries Darren Clark MD - 10/30/2020 7:55 AM CST Date of Service: 10/30/2020 ADMIT DATE: 10/24/2020 DISCHARGE DATE: 10/30/2020 ATTENDING MD: Dr. Clark PCP: PATIENT DOES NOT HAVE A PCP PRIMARY DIAGNOSIS/REASON FOR ADMISSION Wound dehiscence FINAL DIAGNOSIS: (the reason, after study, for admitting the patient to the hospital): Wound dehisence SECONDARY DIAGNOSIS: (any diagnosis that, on this admission, required clinical evaluation, therapeutic treatment, diagnostic procedures, extended hospital stay, or additional nursing care/monitoring) Colitis, pelvic fluid collection Active Problems: Wound dehiscence (10/24/2020) POA: Yes E46 Unspecified severe protein-calorie malnutrition (10/25/2020) POA: Unknown PRINCIPAL PROCEDURE: none ADDITIONAL PROCEDURES: none SIGNIFICANT LAB/X-RAYS: Labs: CBC BMP PT/INR WBC (10*3/L) Date Value 10/29/2020 6.43 NA (mmol/L) Date Value 10/29/2020 133 (L) No results found for: PT RBC (10*6/L) Date Value 10/29/2020 2.89 (L) K (mmol/L) Date Value 10/29/2020 4.3 INR (no units) Date Value 07/29/2020 1.0 PLT (10*3/L) Date Value 10/29/2020 753 (H) CALCIUM (mg/dL) Date Value 10/29/2020 8.4 (L) HGB (g/dL) Date Value 10/29/2020 8.8 (L) CL (mmol/L) Date Value 10/29/2020 102 aPTT HCT (%) Date Value 10/29/2020 28.7 (L) BUN (mg/dL) Date Value 10/29/2020 3 (L) APTT Patient (Seconds) Date Value 07/29/2020 30 CREATININE (mg/dL) Date Value 10/29/[address] Abdomen Pelvis W Contrast Result Date: 10/25/2020 1. Postsurgical changes of recent ileostomy reversal surgery with intact anastomosis margins in thedistal ileum. 2. Suspected dehiscence of midline supraumbilical fascia with approximately 1.6 cm opening and herniation of omental fat through the defect. 3. Multiple subcutaneous fluid collections, l ikely postsurgical seromas. A 5.2 cm irregularly-shaped thick-walled fluid collection in the pelvis between the bladder and the rectum, possibly an abscess. Another differential consideration is an enlarged corpus luteum, as seen on the prior imaging. Please correlate clinically. 4. Diffuse gastric and small bowel wall thickening with mild dilatation of jejunum, likely due to nonspecific inflammatory changes. Mild postoperative ileus may be present. Preliminary Report Dictated by Resident: Fanny Gonzales MD., have reviewed this study and agree with the above report. HOSPITAL COURSE: Jessica Silveira a44 year oldfeann had been treated forpossibleCrohn's disease beforeandwas admitted with an adhesive SBO in 07/2020, and underwent ileocecectomy and end ileostomy. No sign of active Crohn's disease was found at the time of surgery and she hadfibrosis at i leocecal junction. Follow up colonoscopy on 09/10/20 demonstrated normal mucosa throughout the colon.Was taken for ileostomy takedown on 10/14. Significant post-operative pain, requiring multiple alterations to pain regimen and a pain service consult. Incision healing appropriately, return of bowel fxn on POD 2.Discharged on 10/19. Readmitted 10/24 with concerns for fascial dehiscence after she reported to OSH ED with abdominal pain and serous op from incision site. Physical exam not compelling for fascial dehiscence. She does have a history of chronic pain since her laparotomy although she states that she did not have this before her operations. Treated her with IV abx, good pain control, anti-nausea meds, and wound care. Patient is passing flatus and having BM's, tolerating regular diet, has not had an increased WBC or been febrile, and has remained HDS. CONDITION: good DIET: regular ACTIVITY/WOUND CARE/INSTRUCTIONS: Activity as tolerated, encourage patient to get up and out of bed, encourage ambulation, no heavy lifting or strenuous activity for 3-4 weeks. Keep wounds clean and dry. Shower daily with unscented soap. Do not soak in hot tub/bathtub. Okay tocover incisions with dressing or leave open to air. Take all medications as prescribed. RTC in 2 weeks. DISCHARGE MEDICATIONS: Current Discharge Medication List START taking these medications Details ALPRAZolam (XANAX) 2 mg Take 2 mg by mouth 2 (two) times daily. Qty: 14 tablet, Refills: 0 Start date: 10/30/2020, End date: 11/06/2020 Associated Diagnoses: Wound dehiscence ciprofloxacin HCl (CIPRO) 500 mg Take 500 mg by mouth every 12 (twelve) hours. Qty: 28 tablet, Refills: 0 Start date: 10/30/2020, End date: 11/13/2020 Associated Diagnoses: Wound dehiscence ibuprofen (IBU) 800 mg Take 800 mg by mouth every 6 (six) hours as needed for Pain (scale 1-3). Qty: 56 tablet, Refills: 0 Start date: 10/30/2020, End date: 11/13/2020 Associated Diagnoses: Wound dehiscence metroNIDAZOLE (FLAGYL) 500 mg Take 500 mg by mouth every 8 (eight) hours. Qty: 42 tablet, Refills: 0 Start date: 10/30/2020, End date: 11/13/2020 Associated Diagnoses: Wound dehiscence proMETHazine (PHENERGAN) 25 mg Take 25 mg by mouth every 8 (eight) hours as needed for Nausea and Vomiting (N/V). Qty: 42 tablet, Refills: 0 Start date: 10/30/2020, End date: 11/13/2020 Associated Diagnoses: Wound dehiscence simethicone (GAS RELIEF (SIMETHICONE)) 80 mg Take 80 mg by mouth at bedtime as needed for Gas. Qty: 14 tablet, Refills: 0 Start date: 10/30/2020 Associated Diagnoses: Wound dehiscence CONTINUE these medications which have CHANGED Details HYDROcodone-acetaminophen (NORCO) 1 tablet Take 1 tablet by mouth every 6 (six) hours as needed for Pain (scale 7-10). Qty: 28 tablet, Refills: 0 Start date: 10/30/2020, End date: 11/06/2020 Associated Diagnoses: Wound dehiscence CONTINUE these medications which have NOT CHANGED Details opium 1 mL Take 1 mL by mouth every 6 (six) hours. Qty: 1 Bottle, Refills: 0 Associated Diagnoses: Ileostomy care metoprolol tartrate (LOPRESSOR) 25 mg Take 25 mg by mouth 2 (two) times daily. Qty: 60 tablet, Refills: 0 Associated Diagnoses: Tachycardia Pantoprazole (PROTONIX) 40 mg Take 40 mg by mouth 2 (two) times daily. STOP taking these medications acetaminophen-codeine (TYLENOL #3) 1 tablet Comments: Reason for Stopping: HYDROcodone-acetaminophen (NORCO 5) 1 tablet Comments: Reason for Stopping: acetaminophen (TYLENOL) 650 mg Comments: Reason for Stopping: ANTIBIOTICS: Did this patient receive antibiotics during this admission, or is he/sh being discharged with antibiotics? Yes: Has the patient been educated about indication,duration and adverse effects: Yes DISCHARGE: Discharged: Home FOLLOW-UP APPOINTMENT: [facility] Clinics with Dr. Clark in 2 week(s) Patient was given discharge instructions. Rena Moser MD General Surgery PGY-1 General Surgery B - Pager #: documented in this encounter Discharge Instructions AttachmentsThe following attachments cannot be sent through Care Everywhere. Digestive System,Anatomy of the (Singaporean)Wound Check (Infection) (Singaporean)Post Op Wound Check, Infection (Singaporean)Metronidazole tablets or capsules (Singaporean) Ciprofloxacin tablets (Singaporean)Abdominal Pain, Adult (Singaporean)documented in this encounter Progress Notes Bethany Guy LMSW - 10/30/2020 4:47 PM [facility] Care Management Discharge Disposition Note (DCDN) 5-2-1 Interventions: Disease specific education;Intensive medication reconciliation/management;Teachback;Follow-up appointments;Clear discharge plan 5-2-1 Providers: Physician;Obgyn Specialist/State Inspector;Nurse 5-2-1 Patient Capacity Improvements: Transportation arrangements Discharge Plan for ongoing care and services: Patient Choice completed for referred services: Discussed with patient/patients family involved in decision making: Patient or family caregiver understands, and agrees with discharge plan Patient's family or support contact: Blair David (Dtr) [phone] Discharge Plan: Receiving facility was provided the following clinical documentation at discharge- CM Facesheet, Consult notes, Labs, Progress Notes, MAR: DME location: Other DME location: Durable Medical Equipment: Home Health location: Discharge location(s): Home [address] [place] [address] Community resources/referrals made or provided to patient: Yes Resources/Referrals: [facility] Indigent Program;Patient Assistance Program;CHP([facility] Open Enrollment) Mental Status: Alert & Oriented to Person,Place & Time Psychosocial issues and/or concerns resulting in patient being a high risk for re-admission: Manage ADL indepentdly: Yes Living Arrangement: Home Other living arrangement: Address of living arrangement: [address] [place] [address] Funding Resources: Self Pay Nursing informed of discharge plan: Yes CHP referral sent? No(Pt on CHP caseload.) CM medication request completed (if appropriate): Yes PCP: Kita Keller Yes([facility] referral team) Transportation: Taxi Prior authorization obtained for ambulance: Authorization number: CPT code: Discharge Medications Will the patient be able to obtain his medications? No Does the patient have transportation to to obtain the prescription medications? No CM Medication Request completed (if appropriate): Yes Name of RN informed: Expected discharge date: 10/30/2020 Time: 1700 Additional Information: CM/SW Name & Contact number: Bethany Guy LMSW Ph. [phone] The following information has been provided to the facility noted above: reason for the patient discharge or transfer; patients physical and psychosocial status; summary of care, treatment, servicesprovided to patient; and the patient progress toward goals. Bethany Koch LMSW - 10/30/2020 2:25 PM CSTSocial Worker Note Per Medical Team patient is medically cleared for discharge. SW spoke with patient regarding discharge. Pt reported was unable to pay for medication. SW discussed cost of medications using Good Rx card. Pt stated would not be able to afford cost of medications. SW informed patient would seek ari for medication. SW encouraged patient to consider what patientwould be doing in the future to obtain long-term medications. SW discussed IHC application. Pt reported would mail application for IHC upon arrival at home. SW encouraged/advised patient to follow-up with application. CM Medication Request was completed: Ciprofloxacin, 500 mg q12h, for 14 days Metronidazole, 500 mg q8h, for 14 days Metoprolol, 25 mg BID, 60 tablets, 0 refills SW provided prescriptions to patient. Bethany Guy LMSW State Inspector Care Management O: [phone] [email or web address] [facility] Giselle Hunter RN - 10/29/2020 1:51 PM [facility] Care Management Continued Stay Assessment LOS Day: 5 Estimated /Planned Discharge Date: 11/01/20 Date CM/SW last Face to Face completed with patient/family: 10/25/20 Insurance: Payor: MEDICAID PENDING / Plan: MEDICAID SSI PENDING / Product Type: Pending / CM/SW Outlined steps taken to assist patient with securing coverage (if applicable): PCP:PATIENT DOES NOT HAVE A PCP Steps taken to [facility];Prescription Assistance Program(s);Other;P Patient/Family/MPOA/Caregiver Engaged with Transitional Care Plan: yes Patient/Family/MPOA/Caregiver concurs with proposed discharge plan: yes Name, Relationship to Patient and contact number of individual acting on behalf of the patient: patient Date of Last Family Meeting/Multidisciplinary Conference : Anticipated Discharge Destination: Home If discharge to home, who will support patient in home: Blair David (Tushar) [phone] PIPER/SW Detailed Interventions/Resources Provided/Completed for Transition in Care Plan : Patient is already on CHP caseload; CC will provide detailed summary to CARLY regarding current hospital admission interventions and plan for discharge. Anticipated durable medical equipment needs: None Referrals sent: no Has patient been accepted: not applicable Revised plan if not accepted: N/A Date alternate plan discussed with family/patient: Patient What is the clinical care happening right now that must take place in a hospital setting: -Patient will be switched to PO diet, pain control, nausea control. Awaiting line cultures. Covering CM 10/30 Giselle Hunter RN, BSN [employer]ied [employer] Plant Operator [facility] Care Management Office: [phone] [email or web address] Rena Gonzalez MD - 10/29/2020 9:26 AM CST General Surgery Progress Note Date of Service: 10/29/2020 Subjective/24-Hour Events: - No acute events overnight. - still with abdominal pain - c/o difficult to swallow pills - Urine cx negative Reason for Continued Admission: IV abx, pain control Objective: Vitals: Vitals: 10/29/20 0743 BP: 115/77 Pulse: 96 Resp: 16 Temp: 36.8 C (98.2 F) SpO2: 98% I/O: No intake or output data in the 24 hours ending 10/29/20 0926 Physical Exam: Vitals: 10/28/20 1938 10/28/20 2326 10/29/20 0331 10/29/20 0743 BP: 120/90 (!) 143/90 117/69 115/77 BP Location: Right arm Right arm Right arm Patient Position: Sitting Sitting Supine Pulse: 95 101 92 96 Resp: 20 18 18 16 Temp: 36.9 C (98.5 F) 36.4 C (97.5 F) 36.7 C (98 F) 36.8 C (98.2 F) TempSrc: Oral Oral Oral Oral SpO2: 100% 100% 97% 98% Weight: Gen: No acute distress, alert and oriented HEENT: Extra ocular muscles grossly intact Cardio: Regular rate and rhythm Pulm: Unlabored breathing. Equal chest rise bilaterally GI: Soft, tender to palpation over the lower abdomen. Midline incision and ileostomy incision with fibrinous material appreciuated, non distended. There are no masses to palpation. No rebound, voluntary, or involuntary guarding. There is no erythema or induration noted. MS: Normal range of motion in all 4 extremities Ext: No cyanosis or edema present Psych: No acute issues Current Medications: Current Facility-Administered Medications Medication Dose Route Frequency Last Rate Last Admin ciprofloxacin HCl (CIPRO) tablet 500 mg 500 mg Oral Q12HA2 HYDROmorphone (DILAUDID) tablet 2 mg 2 mg Oral Q4HPRN KCL 20 mEq/15 mL solution 40 mEq 40 mEq Oral DAILY 40 mEq at 10/29/20 0912 metroNIDAZOLE (FLAGYL) tablet 500 mg 500 mg Oral Q8H lidocaine 1% (PF) (XYLOCAINE) injection 5 mL 5 mL Subcutaneous PRN NaCl 0.9% (NS) injection 10 mL 10 mL Slow IV Push PRN HYDROcodone-acetaminophen (HYCET) 7.5-325 mg/15 mL solution 10 mg 10 mg Oral Q6H 10 mg at 10/29/20 0511 diphenhydrAMINE (BENADRYL) 12.5 mg/5 mL solution 12.5 mg 12.5 mg Oral BID 12.5 mg at 10/29/200912 enoxaparin (LOVENOX) injection 40 mg 40 mg Subcutaneous DAILY 40 mg at 10/29/20 0912 lactated ringers IV infusion 1,000 mL 1,000 mL IV Infusion CONTINUOUS Stopped at 10/28/20 1700 metoprolol tartrate (LOPRESSOR) tablet 25 mg 25 mg Oral BID 25 mg at 10/29/20 0912 proMETHazine (PHENERGAN) 12.5 mg in NaCl 0.9% (NS) 50 mL IV piggyback 12.5 mg IV Piggyback Q6HPRN 12.5 mg at 10/29/20 0512 Labs: Labs: CBC WBC (10*3/L) Date Value 10/29/2020 6.43 RBC (10*6/L) Date Value 10/29/2020 2.89 (L) PLT (10*3/L) Date Value 10/29/2020 753 (H) HGB (g/dL) Date Value 10/29/2020 8.8 (L) HCT (%) Date Value 10/29/2020 28.7 (L) GRAN MAT x10^3(ANC) (10*3/uL) Date Value 10/29/2020 2.80 BMP NA (mmol/L) Date Value 10/29/2020 133 (L) K (mmol/L) Date Value 10/29/2020 4.3 CALCIUM (mg/dL) Date Value 10/29/2020 8.4 (L) CL (mmol/L) Date Value 10/29/2020 102 GLUCOSE (mg/dL) Date Value 10/29/2020 103 MAGNESIUM (mg/dL) Date Value 10/29/2020 1.5 (L) PHOSPHORUS (mg/dL) Date Value 10/28/2020 3.4 BUN (mg/dL) Date Value 10/29/2020 3 (L) CREATININE (mg/dL) Date Value 10/29/2020 0.62 eGFR Calculation (Non-) (mL/min/1.73m2) Date Value 10/29/2020 103.6 eGFR Calculation () (mL/min/1.73m2) Date Value 10/29/2020 125.6 Tacrolimus No results found for: FK506 PT/INR PROTIME PATIENT (Seconds) Date Value 07/29/2020 11.4 INR (no units) Date Value 07/29/2020 1.0 aPTT APTT Patient (Seconds) Date Value 07/29/2020 30 Radiology: No new radiology Pathology: No new Pathology Assessment and Plan: Jessica Stearns is a 45 year old female who is currently admitted for concerns of a fascial dehiscence. Physical exam did not demonstrate this. She does have a history of chronic pain since her laparotomy although she states that she did not have this before her operations. Also has a positive UA. Is currently on abx for the fascial dehiscence, abdominal pain could potentially be coming from cystitis, however urine culture shows contaminant. Midline wound with fibrinous material, cultured this AM, no growth yet. -Regular diet -Pain control (will increase dilaudid), nausea control -Switch meds to PO Rena Moser MD General Surgery PGY-1 General Surgery B - Pager #: [facility] Associated attestation - Darren Clark MD - 10/30/2020 2:50 PM CSTATTESTATION: I agree with the resident's note as written. I actively participated in the decision making process.Please see the resident's note for additional details. Doing well, plan for tentative DC tomorrow if afebrile and wbc remains normal. Darren Clark MD MS Colon and Rectal SurgeryKelsey Wilson RD - 10/28/2020 4:48 PM [facility] Nutrition Brief Note: Spoke with patient today in room. Patient reported multiple issues with food delivered on regular diet. Patient reported that she asked for a turkey and cheese sandwich and was given a ham and cheese sandwich. Patient reports that she asked for sliced cheese on her sandwich but was given shredded cheese on the side which melted due to being on the plate with food. Patient also reported two day history of cold grits and issues with tacos she was given one day. RD spoke with supervisor carding about issues with patient's food. As of today, cofferdam construction supervisor has began a "cofferdam construction supervisor check" on all of patient'smeals to make sure that everything is prepared appropriately. RD will continue to follow. Kelsey Wilson, MS, RD, LD Rena Gonzalez MD - 10/28/2020 11:17 AM CST General Surgery Progress Note Date of Service: 10/28/2020 Subjective/24-Hour Events: - No acute events overnight. - still with abdominal pain -1x BM recorded Reason for Continued Admission: IV abx Objective: Vitals: Vitals: 10/28/20 0821 BP: 114/72 Pulse: 95 Resp: 18 Temp: 36.7 C (98 F) SpO2: 97% I/O: No intake or output data in the 24 hours ending 10/28/20 1120 Physical Exam: Vitals: 10/27/20 1856 10/27/20 2324 10/28/20 0325 10/28/20 0821 BP: 126/81 119/75 (!) 143/86 114/72 BP Location: Right arm Right arm Right arm Right arm Patient Position: Supine Supine Supine Supine Pulse: 98 86 97 95 Resp: 18 18 17 18 Temp: 36.8 C (98.2 F) 36.3 C (97.4 F) 36.6 C (97.8 F) 36.7 C (98 F) TempSrc: Oral Oral Oral Skin SpO2: 97% 97% 97% 97% Weight: Gen: No acute distress, alert and oriented HEENT: Extra ocular muscles grossly intact Cardio: Regular rate and rhythm Pulm: Unlabored breathing. Equal chest rise bilaterally GI: Soft, tender to palpation over the lower abdomen. Midline incision and ileostomy incision with fibrinous material appreciuated, non distended. There are no masses to palpation. No rebound, voluntary, or involuntary guarding. There is no erythema or induration noted. MS: Normal range of motion in all 4 extremities Ext: No cyanosis or edema present Psych: No acute issues Current Medications: Current Facility-Administered Medications Medication Dose Route Frequency Last Rate Last Admin KCL (KLOR-CON M20) tablet 40 mEq 40 mEq Oral DAILY 40 mEq at 10/28/20 0834 HYDROmorphone (DILAUDID) injection 0.5 mg 0.5 mg Slow IV Push Q4HPRN 0.5 mg at 10/28/20 0351 lidocaine 1% (PF) (XYLOCAINE) injection 5 mL 5 mL Subcutaneous PRN NaCl 0.9% (NS) injection 10 mL 10 mL Slow IV Push PRN HYDROcodone-acetaminophen (HYCET) 7.5-325 mg/15 mL solution 10 mg 10 mg Oral Q6H 10 mg at 10/28/20 0611 ciprofloxacin in 5 % dextrose (CIPRO) piggyback 400 mg 400 mg IV Piggyback Q12H ABX 400 mg at112/28/19 2118 diphenhydrAMINE (BENADRYL) 12.5 mg/5 mL solution 12.5 mg 12.5 mg Oral BID 12.5 mg at 10/28/200834 enoxaparin (LOVENOX) injection 40 mg 40 mg Subcutaneous DAILY 40 mg at 10/28/20 0834 lactated ringers IV infusion 1,000 mL 1,000 mL IV Infusion CONTINUOUS Stopped at 10/28/20 0200 metoprolol tartrate (LOPRESSOR) tablet 25 mg 25 mg Oral BID 25 mg at 10/28/20 0834 metroNIDAZOLE in NaCl (iso-os) (FLAGYL I.V.) RTU IV infusion 500 mg 500 mg IV Infusion Q8H ABX Stopped at 10/27/20 2200 proMETHazine (PHENERGAN) 12.5 mg in NaCl 0.9% (NS) 50 mL IV piggyback 12.5 mg IV Piggyback Q6HPRN 12.5 mg at 10/27/20 2115 Labs: Labs: CBC WBC (10*3/L) Date Value 10/28/2020 6.93 RBC (10*6/L) Date Value 10/28/2020 2.73 (L) PLT (10*3/L) Date Value 10/28/2020 824 (H) HGB (g/dL) Date Value 10/28/2020 8.3 (L) HCT (%) Date Value 10/28/2020 26.3 (L) GRAN MAT x10^3(ANC) (10*3/uL) Date Value 10/28/2020 3.83 BMP NA (mmol/L) Date Value 10/28/2020 135 K (mmol/L) Date Value 10/28/2020 4.0 CALCIUM (mg/dL) Date Value 10/28/2020 8.3 (L) CL (mmol/L) Date Value 10/28/2020 101 GLUCOSE (mg/dL) Date Value 10/28/2020 100 MAGNESIUM (mg/dL) Date Value 10/28/2020 1.8 PHOSPHORUS (mg/dL) Date Value 10/28/2020 3.4 BUN (mg/dL) Date Value 10/28/2020 4 (L) CREATININE (mg/dL) Date Value 10/28/2020 0.70 eGFR Calculation (Non-) (mL/min/1.73m2) Date Value 10/28/2020 90.1 eGFR Calculation () (mL/min/1.73m2) Date Value 10/28/2020 109.2 Tacrolimus No results found for: FK506 PT/INR PROTIME PATIENT (Seconds) Date Value 07/29/2020 11.4 INR (no units) Date Value 07/29/2020 1.0 aPTT APTT Patient (Seconds) Date Value 07/29/2020 30 Radiology: No new radiology Pathology: No new Pathology Assessment and Plan: Jessica Stearns is a 45 year old female who is currently admitted for concerns of a fascial dehiscence. Physical exam did not demonstrate this. She does have a history of chronic pain since her laparotomy although she states that she did not have this before her operations. Also has a positive UA. Is currently on abx for the fascial dehiscence, abdominal pain could potentially be coming from cystitis, however urine culture shows contaminant. Midline wound with fibrinous material, cultured this AM. -Regular diet, speak to pulley mortiser operator about improving food selection d/t lack of appetite -Pain control, nausea control -Needs midline today, continue abx Rena Moser MD General Surgery PGY-1 General Surgery B - Pager #: [facility] Associated attestation - Darren Clark MD - 10/30/2020 2:50 PM CSTATTESTATION: I agree with the resident's note as written. I actively participated in the decision making process.Please see the resident's note for additional details. Feeling better, tolerating PO, diarrhea resolving. When urine cultures finalized will transition to PO antibiotics and DC home. Darren Clark MD MS Colon and Rectal SurgeryStewart, Judy Schulz MD - 10/27/2020 1:50 PM [facility] General Surgery Progress Note Date of Service: 10/27/2020 Subjective/24-Hour Events: - No acute events overnight. - still with abdominal pain -reports passing gas but no bowel movement - no apetite Reason for Continued Admission: IV abx Objective: Vitals: Weight- Wt Readings from Last 1 Encounters: 10/24/20 61.2 kg (134 lb 14.7 oz) Temp (24hrs), Av.6 C (97.9 F), Min:36.1 C (96.9 F), Max:37.1 C (98.8 F) Patient Vitals for the past 24 hrs: BP Temp Temp src Pulse Resp SpO2 10/27/20 1103 123/82 36.1 C (96.9 F) Oral 95 18 100 % 10/27/20 0820 115/76 36.1 C (97 F) Oral 92 18 97 % 10/27/20 0356 116/77 36.8 C (98.2 F) Oral 91 16 97 % 10/26/20 2331 108/73 37.1 C (98.8 F) Oral 85 18 96 % 10/26/20 2007 126/79 36.7 C (98.1 F) Oral 96 18 97 % 10/26/20 1606 112/74 36.9 C (98.4 F) Oral 106 18 97 % I/O: No intake or output data in the 24 hours ending 10/27/20 1350 Physical Exam: Vitals: 10/26/20 2331 10/27/20 0356 10/27/20 0820 10/27/20 1103 BP: 108/73 116/77 115/76 123/82 BP Location: Left arm Left arm Right arm Left arm Patient Position: Supine Supine Supine Sitting Pulse: 85 91 92 95 Resp: 18 16 18 18 Temp: 37.1 C (98.8 F) 36.8 C (98.2 F) 36.1 C (97 F) 36.1 C (96.9 F) TempSrc: Oral Oral Oral Oral SpO2: 96% 97% 97% 100% Weight: Gen: No acute distress, alert and oriented HEENT: Extra ocular muscles grossly intact Cardio: Regular rate and rhythm Pulm: Unlabored breathing. Equal chest rise bilaterally GI: Soft, tender to palpation over the lower abdomen. Midline incision and ileostomy incision with fibrinous material appreciuated, non distended. There are no masses to palpation. No rebound, voluntary, or involuntary guarding. There is no erythema or induration noted. MS: Normal range of motion in all 4 extremities Ext: No cyanosis or edema present Psych: No acute issues Current Medications: Current Facility-Administered Medications Medication Dose Route Frequency Last Rate Last Admin [START ON 10/28/2020] KCL (KLOR-CON M20) tablet 40 mEq 40 mEq Oral DAILY KCL (POTASSIUM CHLORIDE) 40 mEq in NaCl 0.9% (NS) 250 mL 40 mEq Intravenous ONCE magnesium sulfate in water 2 gram/50 mL (4 %) infusion 2 g 2 g IV Piggyback ONCE HYDROmorphone (DILAUDID) injection 0.5 mg 0.5 mg Slow IV Push Q4HPRN 0.5 mg at 10/27/20 1018 lidocaine 1% (PF) (XYLOCAINE) injection 5 mL 5 mL Subcutaneous PRN NaCl 0.9% (NS) injection 10 mL 10 mL Slow IV Push PRN HYDROcodone-acetaminophen (HYCET) 7.5-325 mg/15 mL solution 10 mg 10 mg Oral Q6H 10 mg at 10/27/20 1147 ciprofloxacin in 5 % dextrose (CIPRO) piggyback 400 mg 400 mg IV Piggyback Q12H ABX 400 mg at112/28/19 1149 diphenhydrAMINE (BENADRYL) 12.5 mg/5 mL solution 12.5 mg 12.5 mg Oral BID 12.5 mg at 10/27/200849 enoxaparin (LOVENOX) injection 40 mg 40 mg Subcutaneous DAILY 40 mg at 10/27/20 0850 lactated ringers IV infusion 1,000 mL 1,000 mL IV Infusion CONTINUOUS 100 mL/hr at 10/24/207 1,000 mL at 10/24/20 2137 metoprolol tartrate (LOPRESSOR) tablet 25 mg 25 mg Oral BID 25 mg at 10/27/20 0849 metroNIDAZOLE in NaCl (iso-os) (FLAGYL I.V.) RTU IV infusion 500 mg 500 mg IV Infusion Q8H ABX 500 mg at 10/27/20 0850 proMETHazine (PHENERGAN) 12.5 mg in NaCl 0.9% (NS) 50 mL IV piggyback 12.5 mg IV Piggyback Q6HPRN 12.5 mg at 10/27/20 1018 Labs: Labs: CBC WBC (10*3/L) Date Value 10/27/2020 6.14 RBC (10*6/L) Date Value 10/27/2020 2.53 (L) PLT (10*3/L) Date Value 10/27/2020 714 (H) HGB (g/dL) Date Value 10/27/2020 7.7 (L) HCT (%) Date Value 10/27/2020 24.0 (L) GRAN MAT x10^3(ANC) (10*3/uL) Date Value 10/27/2020 3.19 BMP NA (mmol/L) Date Value 10/27/2020 135 K (mmol/L) Date Value 10/27/2020 3.2 (L) CALCIUM (mg/dL) Date Value 10/27/2020 7.5 (L) CL (mmol/L) Date Value 10/27/2020 99 GLUCOSE (mg/dL) Date Value 10/27/2020 104 MAGNESIUM (mg/dL) Date Value 10/27/2020 1.1 (L) PHOSPHORUS (mg/dL) Date Value 10/25/2020 3.0 BUN (mg/dL) Date Value 10/27/2020 3 (L) CREATININE (mg/dL) Date Value 10/27/2020 0.66 eGFR Calculation (Non-) (mL/min/1.73m2) Date Value 10/27/2020 96.4 eGFR Calculation () (mL/min/1.73m2) Date Value 10/27/2020 116.9 Tacrolimus No results found for: FK506 PT/INR PROTIME PATIENT (Seconds) Date Value 07/29/2020 11.4 INR (no units) Date Value 07/29/2020 1.0 aPTT APTT Patient (Seconds) Date Value 07/29/2020 30 Radiology: No new radiology Pathology: No new Pathology Assessment and Plan: Jessica Stearns is a 45 year old female who is currently admitted for concerns of a fascial dehiscence. Physical exam did not demonstrate this. She does have a history of chronic pain since her laparotomy although she states that she did not have this before her operations. Also has a positive UA. Is currently on abx for the fascial dehiscence, abdominal pain could potentially be coming from cystitis. Would continue the current IV abx, possibly complete a renal US vs CT imaging to r/o lower abdominal pathology, kidney stones, or another explanation for her lower abdominal pain. Patient awaiting midline currently as well. Continue all other orders as written. Judy Flores MD General Surgery, PGY-5 [facility] Associated attestation - Jerry Bourne MD - 10/28/2020 4:57 PM CSTI have examined Ms Del Cid and agree with the note by Aroldo Abreu Meghan, - 10/26/2020 10:06 AM CST GENERAL SURGERY B DAILY PROGRESS NOTE Patient Name: Jessica Stearns Date of : 1975 Date: 10/26/2020 Continues to be hospitalized due to need for IV antibiotics SUBJECTIVE: 24 HOUR EVENTS: - NAEO - Patient reporting pain at IV site Objective: Vital Signs Temp: [36 C (96.8 F)-37.2 C (99 F)] Pulse: [87-107] Resp: [18] BP: (105-129)/(71-75) MAP (mmHg): [84-93] Intake/Output Intake/Output Summary (Last 24 hours) at 10/26/2020 1007 Last data filed at 10/25/2020 8048 Gross per 24 hour Intake 300 ml Output Net 300 ml PHYSICAL EXAM General: alert and oriented x3 NAD HEENT: EOMI CV: RRR Resp: CTAB Abdomen: soft, NT, ND Surgical incision: C/D/no signs of infection Extremities/Musculoskeletal: moves all extremities Labs Labs: CBC BMP PT/INR WBC (10*3/L) Date Value 10/26/2020 5.50 NA (mmol/L) Date Value 10/25/2020 136 No results found for: PT RBC (10*6/L) Date Value 10/26/2020 2.72 (L) K (mmol/L) Date Value 10/25/2020 2.8 (LL) INR (no units) Date Value 07/29/2020 1.0 PLT (10*3/L) Date Value 10/26/2020 526 (H) CALCIUM (mg/dL) Date Value 10/25/2020 7.2 (L) HGB (g/dL) Date Value 10/26/2020 8.3 (L) CL (mmol/L) Date Value 10/25/2020 97 (L) aPTT HCT (%) Date Value 10/26/2020 25.8 (L) BUN (mg/dL) Date Value 10/25/2020 3 (L) APTT Patient (Seconds) Date Value 07/29/2020 30 CREATININE (mg/dL) Date Value 10/25/[address] Abdomen Pelvis W Contrast Result Date: 10/25/2020 1. Postsurgical changes of recent ileostomy reversal surgery with intact anastomosis margins in thedistal ileum. 2. Suspected dehiscence of midline supraumbilical fascia with approximately 1.6 cm opening and herniation of omental fat through the defect. 3. Multiple subcutaneous fluid collections, l ikely postsurgical seromas. A 5.2 cm irregularly-shaped thick-walled fluid collection in the pelvis between the bladder and the rectum, possibly an abscess. Another differential consideration is an enlarged corpus luteum, as seen on the prior imaging. Please correlate clinically. 4. Diffuse gastric and small bowel wall thickening with mild dilatation of jejunum, likely due to nonspecific inflammatory changes. Mild postoperative ileus may be present. Preliminary Report Dictated by Resident: Fatmata Guerin I, Fanny Acevedo MD., have reviewed this study and agree with the above report. MEDICATIONS Scheduled MedicationsHYDROcodone-acetaminophen, 10 mg, Q6H ciprofloxacin in 5 % dextrose, 400 mg, Q12H ABX diphenhydrAMINE, 12.5 mg, BID enoxaparin (LOVENOX) SC Syringe, 40 mg, DAILY metoprolol tartrate, 25 mg, BID metroNIDAZOLE, 500 mg, Q8H ABX IV Medications/Dripslactated ringers, Last Rate: 1,000 mL (10/24/202136) PRN Medicationslidocaine 1% (PF), 5 mL, PRN NaCl 0.9% (NS), 10 mL, PRN HYDROmorphone, 0.5 mg, Q4HPRN promethazine (PHENERGAN) IV piggyback, 12.5 mg, Q6HPRN Assessment: Jessica Stearns is a 45 year old females/p ileostomy takedown on 10/14 who presented to OSH with abdominal pain, CT scan suggestive of fascial dehiscence although no defect appreciated on physical exam Plan: - Continue IV antibiotics - Midline request placed - Continue OOB - Wound care Patient seen and examined with Dr. Steffen Falk, DO General Surgery PGY-2 [facility] Associated attestation - Jerry Bourne MD - 10/26/2020 12:56 PM CSTI have examined Ms Morejon and agree with the note by Dr Falk. Looks ok .Bethany De La Rosa LMSW - 10/25/2020 4:35 PM [facility] Care Management Discharge Disposition Note (DCDN) 5-2-1 Interventions: Disease specific education;Intensive medication reconciliation/management;Teachback;Follow-up appointments;Clear discharge plan 5-2-1 Providers: Physician;Obgyn Specialist/State Inspector;Nurse 5-2-1 Patient Capacity Improvements: Transportation arrangements Discharge Plan for ongoing care and services: Patient Choice completed for referred services: Discussed with patient/patients family involved in decision making: Patient or family caregiver understands, and agrees with discharge plan Patient's family or support contact: Uziel Garcia (Mother) [phone]; Blair David (Dtr) [phone] Discharge Plan: Receiving facility was provided the following clinical documentation at discharge- CM Facesheet, Consult notes, Labs, Progress Notes, MAR: DME location: Other DME location: Durable Medical Equipment: Home Health location: Discharge location(s): Home [address] [place] [address] Community resources/referrals made or provided to patient: Yes Resources/Referrals: [facility] Indigent Program;Patient Assistance Program;[facility]([employer] Open Enrollment) Mental Status: Alert & Oriented to Person,Place & Time Psychosocial issues and/or concerns resulting in patient being a high risk for re-admission: Manage ADL indepentdly: Yes Living Arrangement: Home Other living arrangement: Address of living arrangement: [address] [place] [address] Funding Resources: Self Pay Has patient been referred to [facility]? NA Nursing informed of discharge plan: Yes [facility]P referral sent? No(Pt on [facility]P caseload.) CM medication request completed (if appropriate): No PCP: Kita Keller Yes([facility] referral team) Transportation: [employer] (Dtr) [phone] or Taxi Prior authorization obtained for ambulance: Authorization number: CPT code: Discharge Medications Will the patient be able to obtain his medications? Yes Does the patient have transportation to to obtain the prescription medications? Yes Name of RN informed: Expected discharge date: 10/27/2020 Time: 1600 Additional Information: CM/SW Name & Contact number: Bethany Guy LMSW Ph. [phone] The following information has been provided to the facility noted above: reason for the patient discharge or transfer; patients physical and psychosocial status; summary of care, treatment, servicesprovided to patient; and the patient progress toward goals. Bethany Koch LMSW - 10/25/2020 11:45 AM CSTCare Management Social Functional Assessment Patient Name: Jessica Stearns Age: [age] year old Sex: female Patient's Previous Admission Date at [facility]: 10/14/2020 Current diagnosis and co-morbidities: ilestomy complication Readmission Questions: Was patient discharged from any [...] No Social Functional Assessment: Primary language spoken/preferred: Singaporean Mental Status: Alert & Oriented to Person,Place & Time Information given by: Self Patient's support system: Parent;Child Name and number of support system: Uziel Garcia (Mother) [phone]; Blair David (Dtr) [phone] Primary Equipment Service Engineer: Self;Same as Support System Living Arrangement: Home Address of living arrangement : [address] [place] [address] Persons living in home: Self;Same as support system Baseline functional status- ambulation: Independent Functional status-baseline personal care: Independent Baseline functional status- driving: Requires minimal to moderate assistance Baseline functional status- grocery shopping: Requires minimal to moderate assistance Functional status-baseline housekeeping: Requires minimal to moderate assistance Functional status-baseline meal prep: Requires minimal to moderate assistance Current functional status same as prior: Yes Do you have a PCP?: No Refered to: [facility] Referral Team Home Health Care Agency: No Provider Services: No DME Company: No Equipment: Walker Hemodialysis: No Community resources utilized: [facility] Indigent Health Care Program;Prescription Assistance Program(s);Other;[facility] Other community resources utilized: [employer] Open Enrollment Funding Resources: Self Pay Prescription coverage plan: Self Pay Pharmacy where meds are filled: Other Other pharmacy: [id number] [place], [place] - [address] [facility] [address]; [place] Expected mode of discharge transportation: Family;Other Name and phone number of the friend or family member picking up the patient: Blair David (Dtr)[phone] Other expected mode of transportation: Taxi Additional info required for discharge planning: Pending medical evaluation Recommended discharge plan: Home SFA Complete: Social Functional Assessment complete: Yes Alcohol Use Screening (AUDIT-C) How often do you have a drink containing alcohol?: Never SCORE: 0 Did patient elect to have resources provided: No Role of Care Management explained. Any issues or concerns with obtaining/affording your medications at home: yes. Describe: Pt reportedly has Good Rx card. Are you or your support system able to pick out hand medications at discharge: no. Role of Care Management explained. Pt reported has completed IHC application, but just needs to mail it out. Pt stated the IHC ino is at home and hopes her family will mail it out. SW encouraged patient to speak with her family about assisting her with mailing IHC ino. Pt currently on [facility] caseload. Bethany Guy LMSW State Inspector Care Management O: [phone] [email or web address] ena Moser MD - 10/25/2020 7:07 AM CST General Surgery B Progress Note Date of Service: 10/25/2020 24-Hour Events: -Patient admitted yesterday for concerns for fascial dehiscence, started on IV abx, regular diet, IVF -Pain not well controlled on dilaudid -Incision site draining ss fluid MEDICATIONS: Current Facility-Administered Medications Medication Dose Route Frequency Last Rate Last Admin ciprofloxacin in 5 % dextrose (CIPRO) piggyback 400 mg 400 mg IV Piggyback Q12H ABX 400 mg at112/25/19 2137 diphenhydrAMINE (BENADRYL) 12.5 mg/5 mL solution 12.5 mg 12.5 mg Oral BID 12.5 mg at 10/25/200015 enoxaparin (LOVENOX) injection 40 mg 40 mg Subcutaneous DAILY HYDROmorphone (DILAUDID) injection 0.5 mg 0.5 mg Slow IV Push Q4HPRN 0.5 mg at 10/25/20 0508 lactated ringers IV infusion 1,000 mL 1,000 mL IV Infusion CONTINUOUS 100 mL/hr at 10/24/20 2137 1,000 mL at 10/24/20 213 metoprolol tartrate (LOPRESSOR) tablet 25 mg 25 mg Oral BID 25 mg at 10/24/20 2154 metroNIDAZOLE in NaCl (iso-os) (FLAGYL I.V.) RTU IV infusion 500 mg 500 mg IV Infusion Q8H ABX 500 mg at 10/25/20 0508 proMETHazine (PHENERGAN) 12.5 mg in NaCl 0.9% (NS) 50 mL IV piggyback 12.5 mg IV Piggyback Q6HPRN 12.5 mg at 10/25/20 0508 PHYSICAL EXAM: Temp: [36.8 C (98.2 F)-37.6 C (99.7 F)] Pulse: [98-112] Resp: [16-20] BP: (100-137)/(64-81) MAP (mmHg): [76-98] No intake or output data in the 24 hours ending 10/25/20 0707 General: A & O x 3 HEENT: no scleral icterus, moist mucous membranes Respiratory: CTAB Cardio: normal rate and sinus rhythm Abdomen: soft, ND, tender to palpation around incision site Extremities: DP and PT pulses 3+ bilaterally. No edema. Skin: midline and horizontal incision with matt, few areas of staple separation, serosangineous drainage ; no pus noted, no signs of cellulitis of surrounding skin LABORATORY: CBC WBC (10*3/L) Date Value 10/24/2020 6.16 RBC (10*6/L) Date Value 10/24/2020 2.88 (L) PLT (10*3/L) Date Value 10/24/2020 650 (H) HGB (g/dL) Date Value 10/24/2020 8.7 (L) HCT (%) Date Value 10/24/2020 27.0 (L) BMP NA (mmol/L) Date Value 10/24/2020 137 K (mmol/L) Date Value 10/24/2020 3.5 CALCIUM (mg/dL) Date Value 10/24/2020 7.4 (L) CL (mmol/L) Date Value 10/24/2020 101 BUN (mg/dL) Date Value 10/24/2020 5 (L) CREATININE (mg/dL) Date Value 10/24/2020 0.57 GLUCOSE (mg/dL) Date Value 10/24/2020 80 CO2 TOTAL (mmol/L) Date Value 10/24/2020 31 RADIOLOGY: No new PATHOLOGY: No new Hospital Problem list: Patient Active Problem List Diagnosis Date Noted Wound dehiscence 10/24/2020 Elective surgery 10/14/2020 Ileostomy care 09/27/2020 Acute renal failure 09/25/2020 Renal failure 09/25/2020 E44.0 Moderate protein calorie malnutrition 09/25/2020 JULIAN (acute kidney injury) 09/13/2020 Abdominal pain 09/04/2020 Abdominal pain, generalized 09/03/2020 SBO (small bowel obstruction) 07/24/2020 Crohn's disease of colon with complication 07/23/2020 Sinus tachycardia 08/23/2019 Pneumonia 08/18/2019 Drug-seeking behavior 03/10/2019 Multifocal pneumonia 01/24/2018 Dehydration 01/05/2018 IBS (irritable bowel syndrome) 10/02/2011 Depression 10/02/2011 Assessment & Plan: Jessica Stearns is a 45 year old female s/p ileostomy takedown on 10/14 who presented to OSHwith abdominal pain, CT scan suggestive of fascial dehiscence. 1. Continue IV antibiotics, cipro and flagyl 2. Regular diet 3. Add Hycet liquid 10mg q6h 4. Treat nausea with home dose of phenergan 5. Continue IVF 6. Wound care Rena Moser MD General Surgery PGY-1 Pager #[phone] [facility] Associated attestation - Darren Clark MD - 10/30/2020 2:49 PM CSTATTESTATION: I agree with the resident's note as written. I actively participated in the decision making process.Please see the resident's note for additional details. Ms. Stearns was admitted for fascial dehiscence and what appears to be left sided colitis. Plan forantibiotics and local wound care. Darren Clark MD MS Colon and Rectal Surgerydocumented in this encounter Procedure Notes Eloy-Ryan Howard RN - 10/28/2020 11:20 AM CSTVascular Access Services A bedside timeout was conducted before procedure with ZARA Wilson. An ultrasound guided, 4 Fr., 8 cm. MIDLINE was then placed in the left basilic vein, in one attempt(s). Local anesthetic was not used. Labs were not obtained. 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 PMH/PSH: Past Medical History: Diagnosis Date Crohn disease Drug-seeking behavior 03/04/2019 Please avoid using narcotics IBS (irritable bowel syndrome) Past Surgical History: Procedure Laterality Date SECTION X 2 EXPLORATORY LAPAROTOMY N/A 10/14/2020 Surgeon: Darren Clark MD; Location: [facility] FLEXIBLE SIGMOIDOSCOPY (SHX) N/A 09/10/2020 Surgeon: Mariana Allen MD; Location: [facility] Location HYSTERECTOMY 2010 ILEOCECECTOMY N/A 07/25/2020 Surgeon: Darren Clark MD; Location: [facility] ILEOSTOMY N/A 07/25/2020 Surgeon: Darren Clark MD; Location: [facility] ILEOSTOMY TAKEDOWN Right 10/14/2020 Surgeon: Darren Clark MD ILEOSTOMY TAKEDOWN N/A 10/14/2020 Surgeon: Darren Clark MD; Location: [facility] TUBAL LIGATION [address] [place] [address] noted. GI and Nutrition Related Findings: Symptoms: Nausea, Vomiting, Diarrhea and Abdominal Pain Difficulty: N/A GI tract alteration: Resection Alternative means of nutrition: N/A General: Wounds (eg. Vascular, Diabetic, Burn, Pressure) Medications: I have reviewed the medications currently ordered in the EMR located under the medications andMAR tabs. Current medications include: Current Facility-Administered Medications: HYDROcodone-acetaminophen (HYCET) 7.5-325 mg/15 mL solution 10 mg, 10 mg, Oral, Q6H, Rena Moser MD ciprofloxacin in 5 % dextrose (CIPRO) piggyback 400 mg, 400 mg, IV Piggyback, Q12H ABX, Rena Moser MD, 400 mg at 10/24/20 2137 diphenhydrAMINE (BENADRYL) 12.5 mg/5 mL solution 12.5 mg, 12.5 mg, Oral, BID, Rena Moser MD, 12.5 mg at 10/25/20 0015 enoxaparin (LOVENOX) injection 40 mg, 40 mg, Subcutaneous, DAILY, Rena Moser MD HYDROmorphone (DILAUDID) injection 0.5 mg, 0.5 mg, Slow IV Push, Q4HPRN, Rena Moser MD, 0.5 mg at 10/25/20 0508 lactated ringers IV infusion 1,000 mL, 1,000 mL, IV Infusion, CONTINUOUS, Rena Moser MD, LastRate: 100 mL/hr at 10/24/202136, 1,000 mL at 10/24/202136 metoprolol tartrate (LOPRESSOR) tablet 25 mg, 25 mg, Oral, BID, Rena Moser MD, 25 mg at 10/24/20 2154 metroNIDAZOLE in NaCl (iso-os) (FLAGYL I.V.) RTU IV infusion 500 mg, 500 mg, IV Infusion, Q8H X, Rena Moser MD, 500 mg at 10/25/20 0508 proMETHazine (PHENERGAN) 12.5 mg in NaCl 0.9% (NS) 50 mL IV piggyback, 12.5 mg, IV Piggyback, Q6HPRN, Rena Moser MD, 12.5 mg at 10/25/20 0508 Lab and Medical Test Results: NA (mmol/L) Date Value 10/24/2020 137 K (mmol/L) Date Value 10/24/2020 3.5 CALCIUM (mg/dL) Date Value 10/24/2020 7.4 (L) CL (mmol/L) Date Value 10/24/2020 101 BUN (mg/dL) Date Value 10/24/2020 5 (L) CREATININE (mg/dL) Date Value 10/24/2020 0.57 GLUCOSE (mg/dL) Date Value 10/24/2020 80 CO2 TOTAL (mmol/L) Date Value 10/24/2020 31 ALBUMIN (g/dL) Date Value 10/01/2020 5.4 (H) [...] PHOS (U/L) Date Value 10/01/2020 153 (H) Ref. Range 10/24/2020 16:27 HGB Latest Ref Range: 11.6 - 15.0 g/dL 8.7 (L) Nutrition Assessment: Age: [age] year old Sex: female Ht: 1.702 m / 5'7" Ht Readings from Last 3 Encounters: 10/14/20 1.702 m (5' 7") 10/01/20 1.7 m (5' 6.93") 09/27/20 1.702 m (5' 7") Current Wt: 61.2 kg/ 134 lb BMI: Body mass index is 21.13 kg/m. (Normal) IBW for Ht: 61 kg +/- 6.1 kg %IBW: 100% Weight History: Wt Readings from Last 20 Encounters: 10/24/20 61.2 kg (134 lb 14.7 oz) 10/14/20 55.1 kg (121 lb 7.6 oz) [...] (160 lb) 03/24/16 74.8 kg (165 lb) 14% weight loss in 3 months- 21 lbs Inflammatory Markers: Increased HR (>90) Current Dietary Order(s): Regular Diet; Texture: Regular EMR documented food allergies/intolerance/cultural preferences: caffeine Nutrition & Diet History: Spoke with patient today in room. Per MD note, patient with complaints of N/V/D prior to admission but patient reports this is normal due to struggling with colitis. Patient reports that she doesn't have much appetite but states she was eating "everything" at home and was on a normal diet. Per resultsreview, patient with low calcium and BUN levels. RD will continue to follow patient's progress. Estimated Daily Nutritional Needs: Calories: 1650 kcal/day = 27 kcal/kg current wt Protein: 17-22% of kcal need/day = 73-92 g/day = 1.2-1.5 g/kg IBW Fluid: 1836--2142 mL/day (30-35 ml/kg) or per MD; adjust per acute needs. Nutrition Diagnosis: Severe Protein Calorie Malnutrition related to inadequate energy intake as evidenced by intake of <75% for > 1 month, 21 lbs weight loss in 3 month. Nutrition Plan of Care: Intervention(s): 1. Continue with current diet, Regular. 2. Recommend Marcel BID 3. Recommend daily multivitamin 4. Please allow snacks between meals 5. Consider additional nutritional supplementation as needed 6. Continue with bowel + N/V regimen Goal(s): 1. Patient will be able to meet 100% of nutrient needs via meals/snacks/supplements. 2. Patient will be able to eat >50-75% of all meals. D/C Planning: Regular Diet Nutrition Monitoring and Evaluation: A registered dietitian will f/u as indicated to report nutrition related information and to revise the recommended nutrition intervention(s); please call with questions or concerns, thank-you. Kelsey Wilson MS, RD, LD Clinical Dietitian RD Office: [id number] [facility] documented in this encounter Nursing Notes Kitty Villanueva RN - 10/24/2020 11:00 PM CSTRecd patient from ED AA and oriented. Pt has two IV sites one in antecubital right and one below theright AC site. The AC site flushes well. The IV below the AC site did not flush appeared swollen andinfiltrated and was discontinued. documented in this encounter ED Notes Haven King RN - 10/24/2020 1:37 PM CSTClalfonso Stearsn is a 45 year old female to ED from OSH, accepted by surgery for ileostomy issues. Patient had ileostomy placed 10 days ago, and has had drainage and pain to site. Patient is AAOX4, in NAD, RR even and unlabored. Surgery paged. Awaiting call back. documented in this encounter Miscellaneous Notes Nursing Note - Marianela Truong RN - 10/30/2020 7:32 PM CSTPt dc'd per MD orders. Lines removed by vince RN. Pt given home medications by pharmacy. Pt educated on discharge instructions, all questions answered. Pt escorted downstairs via wheelchair. Taxi voucher given to patient and [employer] called for pickup. are Plan - Mami Jiménez RN - 10/30/2020 5:14 PM [facility] Problem: Infection Risk Goal: Absence of infection Outcome: Adequate for discharge Problem: Nausea/Vomiting Goal: Absence of nausea/vomiting Outcome: Adequate for discharge Problem: Nutrition Deficit Goal: Adequate nutritional intake Outcome: Adequate for discharge Problem: Pain Goal: Control of pain at or below patient's documented comfort goal Outcome: Adequate for discharge Goal: Reduction in pain sensation Outcome: Adequate for discharge Problem: Discharge Planning Goal: Adequate for discharge Outcome: Adequate for discharge Goal: Effective communication Outcome: Adequate for discharge are Plan - Marianela Truong RN - 10/30/2020 12:39 AM [facility] Problem: Infection Risk Goal: Absence of infection Outcome: Progressing as expected Problem: Nausea/Vomiting Goal: Absence of nausea/vomiting Outcome: Progressing as expected Problem: Nutrition Deficit Goal: Adequate nutritional intake Outcome: Progressing as expected Problem: Pain Goal: Control of pain at or below patient's documented comfort goal Outcome: Progressing as expected Goal: Reduction in pain sensation Outcome: Progressing as expected Problem: Discharge Planning Goal: Adequate for discharge Outcome: Progressing as expected Goal: Effective communication Outcome: Progressing as expected are Plan - Deysi Stinson RN - 10/29/2020 2:15 PM CST are Plan - Kitty Villanueva RN - 10/28/2020 7:46 PM [facility] Problem: Infection Risk Goal: Absence of infection Outcome: Progressing as expected Problem: Nausea/Vomiting Goal: Absence of nausea/vomiting Outcome: Progressing as expected Problem: Nutrition Deficit Goal: Adequate nutritional intake Outcome: Progressing as expected Problem: Pain Goal: Control of pain at or below patient's documented comfort goal Outcome: Progressing as expected Goal: Reduction in pain sensation Outcome: Progressing as expected are Plan - Kathy Hernandez RN - 10/28/2020 9:49 AM [facility] Problem: Infection Risk Goal: Absence of infection Outcome: Progressing as expected Problem: Nausea/Vomiting Goal: Absence of nausea/vomiting Outcome: Progressing as expected Problem: Nutrition Deficit Goal: Adequate nutritional intake Outcome: Progressing as expected Problem: Pain Goal: Control of pain at or below patient's documented comfort goal Outcome: Progressing as expected Goal: Reduction in pain sensation Outcome: Progressing as expected are Plan - Dillon Leong RN - 10/28/2020 12:05 AM [facility] Problem: Infection Risk Goal: Absence of infection Outcome: Progressing as expected Problem: Nausea/Vomiting Goal: Absence of nausea/vomiting Outcome: Progressing as expected Problem: Nutrition Deficit Goal: Adequate nutritional intake Outcome: Progressing as expected [facility] Care Plan - Queta Coleman RN - 10/27/2020 10:51 AM [facility] Problem: Infection Risk Goal: Absence of infection Outcome: Progressing as expected Problem: Nausea/Vomiting Goal: Absence of nausea/vomiting Outcome: Progressing as expected Problem: Nutrition Deficit Goal: Adequate nutritional intake Outcome: Progressing as expected are Plan - Aurelia Salinas RN - 10/27/2020 1:51 AM [facility] Problem: Infection Risk Goal: Absence of infection Outcome: Progressing as expected Problem: Nausea/Vomiting Goal: Absence of nausea/vomiting Outcome: Progressing as expected Problem: Nutrition Deficit Goal: Adequate nutritional intake Outcome: Progressing as expected are Plan - Cathleen Hobson RN - 10/26/2020 11:11 AM [facility] Problem: Infection Risk Goal: Absence of infection Outcome: Progressing as expected Problem: Nausea/Vomiting Goal: Absence of nausea/vomiting Outcome: Progressing as expected Problem: Nutrition Deficit Goal: Adequate nutritional intake Outcome: Progressing as expected are Plan - Kitty Villanueva RN - 10/25/2020 7:54 AM [facility] Problem: Infection Risk Goal: Absence of infection Outcome: Progressing as expected Problem: Nausea/Vomiting Goal: Absence of nausea/vomiting Outcome: Progressing as expected Problem: Nutrition Deficit Goal: Adequate nutritional intake Outcome: Progressing as expected [facility] Nursing Note - Kitty Villanueva RN - 10/25/2020 7:30 AM CSTOn coming shift notified a.m. labs need to be drawn resource nurse was unable to do them due to a rapid response. ursing Note - Kitty Villanueva RN - 10/25/2020 6:00 AM [facility] Resource nurse notified to assist with labs, unable to draw from line, attempted twice. ursing Note - Kitty Villanueva RN - 10/25/2020 6:00 AM CSTPts wound dressing saturated with drainage and was skin irritation around the incision site. Dressing was changed. Sending note to MD to order what type of dressing and cleansing agent they would like us to do. D Nurse Note - Tisha Puentes RN - 10/24/2020 8:25 PM CSTPt to [facility] time via [facility] transport in stretcher. Respirations even and unlabored, AAOx4, NADnoted. D Nurse Note - Tisha Puentes RN - 10/24/2020 8:10 PM CSTReport given to ZARA zhang. Chief complaint, assessment findings and orders reviewed. Patient to be admitted to [facility]. Patient verbalized understanding of plan of care. Patient A&O x4. VSS. NAD noted. Resp even and non labored. Skin warm and dry. Belongings to be sent with patient. Awaiting transportation. D Nurse Note - Tisha Puentes RN - 10/24/2020 8:03 PM CSTPatient requesting pain medication. Informed patient that medication is ordered, pending verification from pharmacy at this time before this RN is able to give patient medication. Patient verbalized understanding. D Nurse Note - Tisha Puentes RN - 10/24/2020 7:15 PM CSTReceived report from brittany ZUÑIGA. D Nurse Note - Brittany Devries RN - 10/24/2020 6:14 PM CSTSurgery at bedside at this time D Nurse Note - Brittany Devries RN - 10/24/2020 5:30 PM CSTPatient upset and reports that she would like to have something for pain. Patient made aware that the surgery team has been made aware and that there are no orders for pain medication. Patient also with phenergan hanging and reports that the bag was empty. Patient informed that this RN did look at bagand that the bag was not empty. Patient reports that she would like to speak to a [place] construction supervisor because"i shouldn't be sitting here for 4 hours in pain". Charge nurse notified. Surgery team paged and awaiting call back D Nurse Note - Shante Mcknight RN - 10/24/2020 4:[address] upon arrival noted infiltrated. Removed. Pt voiced understanding. D Nurse Note - Brittany Devries RN - 10/24/2020 3:52 PM CSTSurgery at bedside and made aware that patient would like pain medications. Unable to draw repeat labs from PIV. PIV appears infiltrated. Patient reports that US can only be used for IV. Surgery remains at bedside with patient collecting cultures D Nurse Note - Brittany Devries RN - 10/24/2020 1:59 PM CSTClalfonso Uziel Stearns is a 45 year old female presenting to ED with c/o abd pain and drainage fromincision site. Patient had ileostomy reversal on 10/14. Patient reports that she has had increase inabd pain and noticed drainage from incision. Matt noted to abdomen. Patient grimacing in pain upon arrival to room. Small amount of drainage noted to abdomen. Patient denies any fever/chills. Patient does reports nausea and vomiting. VSS. Respirations even and unlabored. Lung sounds clear bilaterally. Bowel sounds normoactive in all 4 quadrants. Bed locked and in lowest position with call snowden within reach. D Nurse Note - Haven King RN - 10/24/2020 1:42 PM CSTsurgery returned page. Made aware of patient arrival. documented in this encounter Plan of Treatment Name Type Priority Associated Diagnoses Order S chedule Magnesium Serum LAB Routine EVERY 24 OLIMPIA RS (START TIME ADJUSTABLE ) for 3 Days starting 1 12/26/2019 until 0, 2 completed Basic Metabolic Panel LAB Routine EVERY 24 HOURS (START (NA, K, CL, CO2, GLUCOSE, TI ME ADJUSTABLE) for 3 BUN, CREATININE, CA) Days st arting 10/25/2020 until 0, 2 completed Health Maintenance Due Date Last Done Comments [...] Date/Time Associated Comments Diagnosis CBC WITH DIFF STAT 10/29/2020 7:10 Results fo r this AM [facility] procedure are i n the results section. BASIC METABOLIC PANEL Routine 10/29/2020 3:36 Re sults for this (NA, K, CL, CO2, AM [facility] procedure a re in GLUCOSE, BUN, the results CREATININE, CA) section. MAGNESIUM Routine 10/29/2020 3:36 Results for this AM [facility] procedure are i n the results section. BASIC METABOLIC PANEL Routine 10/28/2020 4:00 Re sults for this (NA, K, CL, CO2, AM [facility] procedure a re in GLUCOSE, BUN, the results CREATININE, CA) section. MAGNESIUM Routine 10/28/2020 4:00 Results for this AM [facility] procedure are i n the results section. PHOSPHORUS Routine 10/28/2020 4:00 Results for this AM [facility] procedure are i n the results section. CBC WITH DIFF Routine 10/28/2020 3:59 Results fo r this AM [facility] procedure are i n the results section. URINE CULTURE Routine 10/27/2020 1:05 Results fo r this AM [facility] procedure are i n the results section. URINALYSIS Routine 10/27/2020 1:05 Results for this AM [facility] procedure are i n the results section. CBC WITH DIFF Routine 10/27/2020 1:05 Results fo r this AM [facility] procedure are i n the results section. BASIC METABOLIC PANEL Routine 10/27/2020 1:05 Re sults for this (NA, K, CL, CO2, AM [facility] procedure a re in GLUCOSE, BUN, the results CREATININE, CA) section. MAGNESIUM Routine 10/27/2020 1:05 Results for this AM [facility] procedure are i n the results section. CBC WITH DIFF Routine 10/26/2020 5:43 Results fo r this AM [facility] procedure are i n the results section. CBC WITH DIFF Routine 10/25/2020 9:41 Results fo r this PM [facility] procedure are i n the results section. BASIC METABOLIC PANEL Routine 10/25/2020 9:41 Re sults for this (NA, K, CL, CO2, PM [facility] procedure a re in GLUCOSE, BUN, the results CREATININE, CA) section. MAGNESIUM Routine 10/25/2020 9:41 Results for this PM [facility] procedure are i n the results section. PHOSPHORUS Routine 10/25/2020 9:41 Results for this PM [facility] procedure are i n the results section. LAB ONLY COVID Routine 10/24/2020 7:26 Results f or this INTERPRETATION PM [facility] procedure are in the results section. COVID-19 (ID NOW RAPID STAT 10/24/2020 7:26 R esults for this TESTING) PM [facility] procedure are i n the results section. CBC WITH DIFF STAT 10/24/2020 4:27 Results fo r this PM [facility] procedure are i n the results section. BASIC METABOLIC PANEL STAT 10/24/2020 4:27 Re sults for this (NA, K, CL, CO2, PM [facility] procedure a re in GLUCOSE, BUN, the results CREATININE, CA) section. CT ABDOMEN PELVIS W STAT 10/24/2020 3:20 Irritable bowel R esults for this CONTRAST PM [facility] syndrome, procedure are i n unspecified type the results section. documented in this encounter Results CBC WITH DIFF (10/29/2020 7:10 AM [facility]) Pathologist Sig nature WBC 6.43 4.30 - 11.10 [facility] 10*3/L SERVICES RBC 2.89 (L) 3.93 - 5.25 [facility] 10*6/L SERVICES HGB 8.8 (L) 11.6 - 15.0 [facility] g/dL SERVICES HCT 28.7 (L) 35.7 - 45.2 % [facility] SERVICES MCV 99.3 (H) 80.6 - 95.5 fL [facility] SERVICES MCH 30.4 25.9 - 32.8 pg [facility] SERVICES MCHC 30.7 (L) 31.6 - 35.1 [facility] g/dL SERVICES RDW-SD 51.6 (H) 39.0 - 49.9 fL [facility] SERVICES RDW-CV 14.3 12.0 - 15.5 % [facility] SERVICES PLT 753 (H) 166 - 358 [facility] 10*3/L SERVICES MPV 8.9 (L) 9.5 - 12.9 fL [facility] SERVICES NRBC/100 WBC 0.0 0.0 - 10.0 /100 [facility] WBCs SERVICES NRBC x10^3 <0.01 10*3/L [facility] SERVICES GRAN MAT (NEUT) % 43.5 % [facility] IMM GRAN % 0.50 % [facility] LYMPH % 36.9 % [facility] MONO % 11.5 % [facility] EOS % 6.5 % [facility] BASO % 1.1 % [facility] GRAN MAT x10^3(ANC) 2.80 1.88 - 7.09 [facility] 10*3/uL SERVICES IMM GRAN x10^3 0.03 0.00 - 0.06 [facility] 10*3/uL SERVICES LYMPH x10^3 2.37 1.32 - 3.29 [facility] 10*3/uL SERVICES MONO x10^3 0.74 0.33 - 0.92 [facility] 10*3/uL SERVICES EOS x10^3 0.42 (H) 0.03 - 0.39 [facility] 10*3/uL SERVICES BASO x10^3 0.07 0.01 - 0.07 [facility] 10*3/uL SERVICES Specimen Blood - ARM, RIGHT Performing Organization Address [facility]/Zipcode Phone Number [facility] CLIA: [id number] [place] [address] [place] [address] Magnesium Serum (10/29/2020 3:36 AM [facility]) Pathologist Sig nature MAGNESIUM 1.5 (L) 1.7 - 2.4 mg/dL [facility] Specimen Blood - ARM, LEFT Performing Organization Address [facility] Phone Number [facility] CLIA: [id number] [place] [address] [place] [address] Basic Metabolic Panel (NA, K, CL, CO2, GLUCOSE, BUN, CREATININE, CA) (10/29/2020 3:36 AM [facility]) Pathologist Sig nature NA 133 (L) 135 - 145 [facility] mmol/L SERVICES K 4.3 3.5 - 5.0 [facility] mmol/L SERVICES CL 102 98 - 108 mmol/L [facility] CO2 TOTAL 28 23 - 31 mmol/L [facility] AGAP 3 2 - 16 [facility] BUN 3 (L) 7 - 23 mg/dL [facility] GLUCOSE 103 70 - 110 mg/dL [facility] CREATININE 0.62 0.50 - 1.04 [facility] mg/dL SERVICES CALCIUM 8.4 (L) 8.6 - 10.6 [facility] mg/dL SERVICES eGFR Calculation 103.6 mL/min/1.73m2 [facility] (Non- SERVICES Ghanaian) eGFR Calculation 125.6 mL/min/1.73m2 [facility] () SERVICES Specimen Blood - ARM, LEFT Narrative Performed At Association of Glomerular Filtration Rate (GFR) and St aging [facility] of Kidney Disease* + [...] in imaging tests) . Performing Organization Address City/[facility]/Zipcode Phone Number [facility] CLIA: [id number] [place], [place] [id number] [address] [place] [address] Magnesium Serum (10/28/2020 4:00 AM [facility]) Pathologist Sig nature MAGNESIUM 1.8 1.7 - 2.4 mg/dL [facility] Specimen Blood - ARM, LEFT Performing Organization Address [facility] Phone Number [facility] CLIA: [id number] [place] [address] [place] [address] Basic Metabolic Panel (NA, K, CL, CO2, GLUCOSE, BUN, CREATININE, CA) (10/28/2020 4:00 AM [facility]) Pathologist Sig nature NA 135 135 - 145 [facility] mmol/L SERVICES K 4.0 3.5 - 5.0 [facility] mmol/L SERVICES CL 101 98 - 108 mmol/L [facility] SERVICES CO2 TOTAL 31 23 - 31 mmol/L [facility] AGAP 3 2 - 16 [facility] BUN 4 (L) 7 - 23 mg/dL [facility] GLUCOSE 100 70 - 110 mg/dL [facility] CREATININE 0.70 0.50 - 1.04 [facility] mg/dL SERVICES CALCIUM 8.3 (L) 8.6 - 10.6 [facility] mg/dL SERVICES eGFR Calculation 90.1 mL/min/1.73m2 [facility] (Non- SERVICES Ghanaian) eGFR Calculation 109.2 mL/min/1.73m2 [facility] () SERVICES Specimen Blood - ARM, LEFT Narrative Performed At Association of Glomerular Filtration Rate (GFR) and St aging [facility] SERVICES of Kidney Disease* + [...] in imaging tests) . Performing Organization Address City/[facility]/Zipcode Phone Number [facility] CLIA: [id number] [place] [address] [place] [address] Phosphorus Serum (10/28/2020 4:00 AM [facility]) Pathologist Sig nature PHOSPHORUS 3.4 2.5 - 5.0 mg/dL [facility] Specimen Blood - ARM, LEFT Performing Organization Address [facility] Phone Number [facility] CLIA: [id number] [place] [address] [place] [address] CBC WITH DIFF (10/28/2020 3:59 AM [facility]) Pathologist Sig nature WBC 6.93 4.30 - 11.10 [facility] 10*3/L SERVICES RBC 2.73 (L) 3.93 - 5.25 [facility] 10*6/L SERVICES HGB 8.3 (L) 11.6 - 15.0 [facility] g/dL SERVICES HCT 26.3 (L) 35.7 - 45.2 % [facility] MCV 96.3 (H) 80.6 - 95.5 fL [facility] MCH 30.4 25.9 - 32.8 pg [facility] MCHC 31.6 31.6 - 35.1 [facility] g/dL SERVICES RDW-SD 48.4 39.0 - 49.9 fL [facility] RDW-CV 13.8 12.0 - 15.5 % [facility] PLT 824 (H) 166 - 358 [facility] 10*3/L SERVICES MPV 9.1 (L) 9.5 - 12.9 fL [facility] NRBC/100 WBC 0.0 0.0 - 10.0 /100 [facility] WBCs SERVICES NRBC x10^3 <0.01 10*3/L [facility] GRAN MAT (NEUT) % 55.3 % [facility] IMM GRAN % 0.40 % [facility] LYMPH % 29.4 % [facility] MONO % 9.4 % [facility] EOS % 5.1 % [facility] BASO % 0.4 % [facility] GRAN MAT x10^3(ANC) 3.83 1.88 - 7.09 [facility] 10*3/uL SERVICES IMM GRAN x10^3 0.03 0.00 - 0.06 [facility] 10*3/uL SERVICES LYMPH x10^3 2.04 1.32 - 3.29 [facility] 10*3/uL SERVICES MONO x10^3 0.65 0.33 - 0.92 [facility] 10*3/uL SERVICES EOS x10^3 0.35 0.03 - 0.39 [facility] 10*3/uL SERVICES BASO x10^3 0.03 0.01 - 0.07 [facility] 10*3/uL SERVICES Specimen Blood - ARM, LEFT Performing Organization Address City/[facility]/Zipcode Phone Number [facility] CLIA: [id number] [place] [address] [place] [address] URINE CULTURE (10/27/2020 1:05 AM [facility]) URINE CULTURE < 10,000 CFU/mL mixed [facility] aerobic organisms - SERVICES suggests endogenous microbial contamination Specimen Urine - URINE, CLEAN CATCH Performing Organization Address [facility] Phone Number [facility] CLIA: [id number] [place] [address] [place] [address] URINALYSIS (10/27/2020 1:05 AM [facility]) Pathologist Sig nature APPEARANCE Hazy (A) Clear [facility] COLOR Yellow Yellow [facility] PH 7.0 4.8 - 8.0 [facility] SP GRAVITY 1.014 1.003 - 1.030 [facility] GLU U QUAL Normal Normal [facility] BLOOD Negative Negative [facility] KETONES Negative Negative [facility] PROTEIN Negative Negative [facility] UROBILIN Normal Normal [facility] BILIRUBIN Negative Negative [facility] NITRITE Negative Negative [facility] LEUK CHELY 25/uL (A) Negative [facility] RBC/HPF 3 0 - 3 HPF [facility] WBC/HPF 1 0 - 5 HPF [facility] BACTERIA Negative Negative [facility] MUCOUS Slight (A) Negative LPF [facility] SQ EPITH 1 <=2 HPF [facility] Specimen Urine - URINE, CLEAN CATCH Performing Organization Address City/State/Zipcode Phone Number [facility] CLIA: [id number] [place], [place] [address] [address] [place] [address] Basic Metabolic Panel (NA, K, CL, CO2, GLUCOSE, BUN, CREATININE, CA) (10/27/2020 1:05 AM [facility]) Pathologist Sig nature NA 135 135 - 145 [facility] mmol/L SERVICES K 3.2 (L) 3.5 - 5.0 [facility] mmol/L SERVICES CL 99 98 - 108 mmol/L [facility] CO2 TOTAL 35 (H) 23 - 31 mmol/L [facility] AGAP 1 (L) 2 - 16 [facility] BUN 3 (L) 7 - 23 mg/dL [facility] GLUCOSE 104 70 - 110 mg/dL [facility] CREATININE 0.66 0.50 - 1.04 [facility] mg/dL SERVICES CALCIUM 7.5 (L) 8.6 - 10.6 [facility] mg/dL SERVICES eGFR Calculation 96.4 mL/min/1.73m2 [facility] (Non- SERVICES Ghanaian) eGFR Calculation 116.9 mL/min/1.73m2 [facility] () SERVICES Specimen Blood - HAND, LEFT Narrative Performed At Association of Glomerular Filtration Rate (GFR) and St aging [facility] of Kidney Disease* + [...] in imaging tests) . Performing Organization Address City/[facility]/Zipcode Phone Number [facility] CLIA: [id number] [place] [address] [place] [address] Magnesium Serum (10/27/2020 1:05 AM [facility]) Pathologist Sig nature MAGNESIUM 1.1 (L) 1.7 - 2.4 mg/dL [facility] Specimen Blood - HAND, LEFT Performing Organization Address [facility]/Zipcode Phone Number [facility] CLIA: [id number] [place] [address] [place] [address] CBC with Differential (10/27/2020 1:05 AM [facility]) Pathologist Sig nature WBC 6.14 4.30 - 11.10 [facility] 10*3/L SERVICES RBC 2.53 (L) 3.93 - 5.25 [facility] 10*6/L SERVICES HGB 7.7 (L) 11.6 - 15.0 [facility] g/dL SERVICES HCT 24.0 (L) 35.7 - 45.2 % [facility] MCV 94.9 80.6 - 95.5 fL [facility] MCH 30.4 25.9 - 32.8 pg [facility] MCHC 32.1 31.6 - 35.1 [facility] g/dL SERVICES RDW-SD 46.6 39.0 - 49.9 fL [facility] SERVICES RDW-CV 13.7 12.0 - 15.5 % [facility] PLT 714 (H) 166 - 358 [facility] 10*3/L SERVICES MPV 9.1 (L) 9.5 - 12.9 fL [facility] NRBC/100 WBC 0.0 0.0 - 10.0 /100 [facility] WBCs SERVICES NRBC x10^3 <0.01 10*3/L [facility] GRAN MAT (NEUT) % 52.0 % [facility] IMM GRAN % 0.50 % [facility] LYMPH % 34.7 % [facility] MONO % 8.6 % [facility] EOS % 3.7 % [facility] BASO % 0.5 % [facility] GRAN MAT x10^3(ANC) 3.19 1.88 - 7.09 [facility] 10*3/uL SERVICES IMM GRAN x10^3 0.03 0.00 - 0.06 [facility] 10*3/uL SERVICES LYMPH x10^3 2.13 1.32 - 3.29 [facility] 10*3/uL SERVICES MONO x10^3 0.53 0.33 - 0.92 [facility] 10*3/uL SERVICES EOS x10^3 0.23 0.03 - 0.39 [facility] 10*3/uL SERVICES BASO x10^3 0.03 0.01 - 0.07 [facility] 10*3/uL SERVICES Specimen Blood - HAND, RIGHT Performing Organization Address City/State/Zipcode Phone Number [facility] CLIA: [id number] [place] [address] [place] [address] CBC with Differential (10/26/2020 5:43 AM [facility]) Pathologist Sig nature WBC 5.50 4.30 - 11.10 [facility] 10*3/L SERVICES RBC 2.72 (L) 3.93 - 5.25 [facility] 10*6/L SERVICES HGB 8.3 (L) 11.6 - 15.0 [facility] g/dL SERVICES HCT 25.8 (L) 35.7 - 45.2 % [facility] MCV 94.9 80.6 - 95.5 fL [facility] MCH 30.5 25.9 - 32.8 pg [facility] MCHC 32.2 31.6 - 35.1 [facility] g/dL SERVICES RDW-SD 47.2 39.0 - 49.9 fL [facility] RDW-CV 14.5 12.0 - 15.5 % [facility] PLT 526 (H) 166 - 358 [facility] 10*3/L SERVICES MPV 10.1 9.5 - 12.9 fL [facility] SERVICES NRBC/100 WBC 0.0 0.0 - 10.0 /100 [facility] WBCs SERVICES NRBC x10^3 <0.01 10*3/L [facility] SERVICES GRAN MAT (NEUT) % 50.3 % [facility] IMM GRAN % 0.50 % [facility] LYMPH % 36.9 % [facility] MONO % 7.6 % [facility] EOS % 4.2 % [facility] BASO % 0.5 % [facility] GRAN MAT x10^3(ANC) 2.76 1.88 - 7.09 [facility] 10*3/uL SERVICES IMM GRAN x10^3 0.03 0.00 - 0.06 [facility] 10*3/uL SERVICES LYMPH x10^3 2.03 1.32 - 3.29 [facility] 10*3/uL SERVICES MONO x10^3 0.42 0.33 - 0.92 [facility] 10*3/uL SERVICES EOS x10^3 0.23 0.03 - 0.39 [facility] 10*3/uL SERVICES BASO x10^3 0.03 0.01 - 0.07 [facility] 10*3/uL SERVICES Specimen Blood - LINE, VENOUS Performing Organization Address City/[facility]/Zipcode Phone Number [facility] CLIA: [id number] [place] [address] [place] [address] Phosphorus Serum (10/25/2020 9:41 PM [facility]) Pathologist Sig nature PHOSPHORUS 3.0 2.5 - 5.0 mg/dL [facility] Specimen Blood - VENOUS Performing Organization Address [facility] Phone Number [facility] CLIA: [id number] [place] [address] [phone] [address] [facility] Basic Metabolic Panel (NA, K, CL, CO2, GLUCOSE, BUN, CREATININE, CA) (10/25/2020 9:41 PM [facility]) NA 136 135 - 145 [facility] mmol/L SERVICES K 2.8 (LL) 3.5 - 5.0 [facility] mmol/L SERVICES CL 97 (L) 98 - 108 mmol/L [facility] SERVICES CO2 TOTAL 35 (H) 23 - 31 mmol/L [facility] SERVICES AGAP 4 2 - 16 [facility] SERVICES BUN 3 (L) 7 - 23 mg/dL [facility] SERVICES GLUCOSE 116 (H) 70 - 110 mg/dL [facility] SERVICES CREATININE 0.81 0.50 - 1.04 [facility] mg/dL SERVICES CALCIUM 7.2 (L) 8.6 - 10.6 [facility] mg/dL SERVICES eGFR Calculation 76.1 mL/min/1.73m2 [facility] (Non- SERVICES [place]ian) eGFR Calculation 92.3 mL/min/1.73m2 [facility] () SERVICES Specimen Blood - VENOUS Narrative Performed At Association of Glomerular Filtration Rate (GFR) and St aging [facility] of Kidney Disease* + + +------- ------ + | GFR (mL/min/1.73 m2) | With Kidney Damage | Wi out Kidney Damage + + +------- ------ + [...] . Performing Organization Address City/State/Zipcode Phone Number [facility] CLIA: [id number] [place] [address] [place] [address] Magnesium Serum (10/25/2020 9:41 PM [facility]) [facility] MAGNESIUM 1.0 (L) 1.7 - 2.4 mg/dL [facility] Specimen Blood - VENOUS Performing Organization Address City/State/Zipcode Phone Number [facility] CLIA: [id number] [place], [place] [id number] [address] [place] [address] CBC with Differential (10/25/2020 9:41 PM [facility]) [facility] nature WBC 6.80 4.30 - 11.10 [facility] 10*3/L SERVICES RBC 2.42 (L) 3.93 - 5.25 [facility] 10*6/L SERVICES HGB 7.5 (L) 11.6 - 15.0 [facility] g/dL SERVICES HCT 22.6 (L) 35.7 - 45.2 % [facility] MCV 93.4 80.6 - 95.5 fL [facility] MCH 31.0 25.9 - 32.8 pg [facility] MCHC 33.2 31.6 - 35.1 [facility] g/dL SERVICES RDW-SD 45.6 39.0 - 49.9 fL [facility] RDW-CV 13.4 12.0 - 15.5 % [facility] PLT 676 (H) 166 - 358 [facility] 10*3/L SERVICES MPV 9.2 (L) 9.5 - 12.9 fL [facility] NRBC/100 WBC 0.0 0.0 - 10.0 /100 [facility] WBCs SERVICES NRBC x10^3 <0.01 10*3/L [facility] GRAN MAT (NEUT) % 55.9 % [facility] IMM GRAN % 0.40 % [facility] LYMPH % 31.9 % [facility] MONO % 8.4 % [facility] EOS % 3.1 % [facility] BASO % 0.3 % [facility] GRAN MAT x10^3(ANC) 3.80 1.88 - 7.09 [facility] 10*3/uL SERVICES IMM GRAN x10^3 0.03 0.00 - 0.06 [facility] 10*3/uL SERVICES LYMPH x10^3 2.17 1.32 - 3.29 [facility] 10*3/uL SERVICES MONO x10^3 0.57 0.33 - 0.92 [facility] 10*3/uL SERVICES EOS x10^3 0.21 0.03 - 0.39 [facility] 10*3/uL SERVICES BASO x10^3 <0.03 0.01 - 0.07 [facility] 10*3/uL SERVICES Specimen Blood - VENOUS Performing Organization Address City/State/Zipcode Phone Number [facility] CLIA: [id number] [place] [address] [place] [address] LAB ONLY COVID INTERPRETATION (10/24/2020 7:26 PM [facility]) [facility] COVID DMT Interpretation/Recommendations: [facility] Interpretation SERVICES Molecular NAAT Tests for Active Infection with the GAYATHRI S-CoV-2 Virus: This patient has a history o f testing negative on multiple occasions for the SARS-CoV-2 virus that causes COVID-19 illness, with no prior history of a positive result. The current test results are also negative. This most likely i ndicates that the patient does not have an active infection with the SARS-CoV-2 virus, especially if all of these tests coincide with the patient's current presentation. Anne iliana, infection is not comple tely ruled out as the false negative rate for molecular NAAT testing using a nasopharyngeal sample can be up to 30%, mostly dependent on the timing of sample collection in re lation to illness onset and any deficiencies in sampling techniques. If the patient continues to have persistent or worsening symptoms concerning for COVID- 19 illness, a repeat NAAT test (PCR, Rapid ID Now, etc.) should be perform ed, at which time the SARS-CoV-2 virus - if present - may have reached a detectable viral load (usually peaking by the end of the first week of symptoms). Tests for IgM and/or IgG Antibodies to SARS-CoV-2 Viru s: Testing for IgM and IgG anti bodies 1-3 weeks after illness onset will indicate whether the patient has produced antibodies to the virus. At this time, it is not known if the production of antibodies - s pecifically IgG antibodies - indicates whether the patient is immune to future infections with the SARS-CoV-2 virus. Interpretation Result Comments: These interpretation comment s are based upon aggregate COVID-19 test results pooled from [facility]. They apply to the following tests offered at [facility] and assume the acceptable specimen type(s) were used: A. Tests for the Identification of SARS-CoV-2 RNA (Mol ecular NAAT Tests): - SARS-CoV-2 PCR assays including Ramsey Aptima, Ramsey Fusion, Villarreal RealTime, and Pure life renal Xpert Xpress. - SARS-CoV-2 Rapid ID NOW by the ID NOW as say. B. Tests for the Identification of SARS-CoV-2 Antibodi es: - Chemiluminesce nt immunoassays including Access SARS-CoV-2 IgM (DXI 600), UniversityNow Oftr-LIVM-UrN-2 IgG (Vitros 5600 and Vitros 3600), and Villarreal SARS-CoV-2 IgG (TRANSIT DEPARTMENT CLERK I System). These interpretations are au topopulated into [facility] based on computerized algorithms matching an interpretation code to the patient's set of test results, and a clinical pathologist evaluates the comments for accuracy. However, thes e comments do not consider testing a patient may have had outside of the [facility] system. If results for COVID-19 infection continue to be negative in the context of a suspected viral respiratory illness, i t is possible the patient may have an infection with another respiratory virus. Influenza testing and a respiratory pathogen panel if clinically indicated may be beneficial i n this setting. If there con tinues to be a high degree of clinical suspicion for COVID-19 illness despite multiple negative tests on nasopharyngeal specimens, then it may be necessary to test the patien t for the SARS-CoV-2 virus u sing lower respiratory tract samples (such as sputum, bronchoalveolar lavage fluid (BAL), tracheal aspirate, etc.). COVID Results SARS-CoV-2 Rapid ID NOW (no units) [facility] Date Value SERVICES 10/24/2020 Not Detected 2020 Not Detected 09/25/2020 Not Detected 09/10/2020 Not Detected 09/04/2020 Not Detected 08/17/2020 Not Detected 07/23/2020 Not Detected Specimen Swab - NASOPHARYNGEAL SWAB Performing Organization Address City/State/Zipcode Phone Number [facility] CLIA: [id number] [place] [address] [place] [address] COVID-19 (ID NOW RAPID TESTING) (10/24/2020 7:26 PM [facility]) SARS-CoV-2 Rapid ID Not Detected Not Detected [facility] NOW SERVICES Specimen Swab - NASOPHARYNGEAL SWAB Narrative Performed At [facility] NOW COVID-19 Assay is an isothermal nucleic acid [facility] amplification test intended for the qualitative detect ion of nucleic acid from SARS-CoV-2 viral RNA in nasopharynge al ([employer]) specimens. It is used under Emergency Use Authori zation (EUA) by FDA. The limit of detection (LOD) of the assa y is 125 Genome Equivalents/mL. A positive result is indicative of the presence of SARS-CoV-2 RNA. Clinical correlation with patient hi story and other diagnostic information is necessary to deter mine patient infection status. A negative (Not Detected) result does not preclude SARS-CoV-2 infection. In patients with clinical sympto ms and other tests that are consistent with SARS-CoV-2 infect ion, negative results should be treated as presumptive nega tive and a new specimen should be tested with alternative P CR molecular test. Invalid: Please collect a new specimen for repeat cristian ent testing if clinically indicated. ID NOW COVID-19 Assay is an isothermal nucleic acid amplification test intended for the qualitative detect ion of nucleic acid from SARS-CoV-2 viral RNA in nasopharynge al ([employer]WARD[employer]) specimens. It is used under Emergency Use Authori zation (EUA) by FDA. The limit of detection (LOD) of the assa y is 125 Genome Equivalents/mL. A positive result is indicative of the presence of SARS-CoV-2 RNA. Clinical correlation with patient hi story and other diagnostic information is necessary to deter mine patient infection status. A negative (Not Detected) result does not preclude SARS-CoV-2 infection. In patients with clinical sympto ms and other tests that are consistent with SARS-CoV-2 infect ion, negative results should be treated as presumptive nega tive and a new specimen should be tested with alternative P CR molecular test. Invalid: Please collect a new specimen for repeat cristian ent testing if clinically indicated. Performing Organization Address City/State/Zipcode Phone Number [facility] CLIA: [id number] [place] [address] [place] [address] BASIC METABOLIC PANEL (NA, K, CL, CO2, GLUCOSE, BUN, CREATININE, CA) (10/24/2020 4:27 PM [facility]) Pathologist Romeo maritnez NA 137 135 - 145 [facility] mmol/L SERVICES K 3.5 3.5 - 5.0 [facility] mmol/L SERVICES CL 101 98 - 108 mmol/L [facility] SERVICES CO2 TOTAL 31 23 - 31 mmol/L [facility] SERVICES AGAP 5 2 - 16 [facility] BUN 5 (L) 7 - 23 mg/dL [facility] SERVICES GLUCOSE 80 70 - 110 mg/dL [facility] SERVICES CREATININE 0.57 0.50 - 1.04 [facility] mg/dL SERVICES CALCIUM 7.4 (L) 8.6 - 10.6 [facility] mg/dL SERVICES eGFR Calculation 114.2 mL/min/1.73m2 [facility] (Non- SERVICES Ghanaian) eGFR Calculation 138.4 mL/min/1.73m2 [facility] () SERVICES Specimen Blood - ARM, RIGHT Narrative Performed At Association of Glomerular Filtration Rate (GFR) and St aging [facility] SERVICES of Kidney Disease* + + +------- ------ + | GFR (mL/min/1.73 m2) | With Kidney Damage | [facility] Kidney Damage + + +------- ------ + [...] . Performing Organization Address City/State/Zipcode Phone Number [facility] CLIA: [id number] [place] [address] [place] [address] CBC WITH DIFF (10/24/2020 4:27 PM [facility]) Pathologist Sig nature WBC 6.16 4.30 - 11.10 [facility] 10*3/L SERVICES RBC 2.88 (L) 3.93 - 5.25 [facility] 10*6/L SERVICES HGB 8.7 (L) 11.6 - 15.0 [facility] g/dL SERVICES HCT 27.0 (L) 35.7 - 45.2 % [facility] MCV 93.8 80.6 - 95.5 fL [facility] MCH 30.2 25.9 - 32.8 pg [facility] MCHC 32.2 31.6 - 35.1 [facility] g/dL SERVICES RDW-SD 46.5 39.0 - 49.9 fL [facility] RDW-CV 13.4 12.0 - 15.5 % [facility] PLT 650 (H) 166 - 358 [facility] 10*3/L SERVICES MPV 9.4 (L) 9.5 - 12.9 fL [facility] NRBC/100 WBC 0.0 0.0 - 10.0 /100 [facility] WBCs SERVICES NRBC x10^3 <0.01 10*3/L [facility] GRAN MAT (NEUT) % 54.7 % [facility] IMM GRAN % 0.50 % [facility] LYMPH % 35.9 % [facility] MONO % 6.3 % [facility] EOS % 2.3 % [facility] BASO % 0.3 % [facility] GRAN MAT x10^3(ANC) 3.37 1.88 - 7.09 [facility] 10*3/uL SERVICES IMM GRAN x10^3 0.03 0.00 - 0.06 [facility] 10*3/uL SERVICES LYMPH x10^3 2.21 1.32 - 3.29 [facility] 10*3/uL SERVICES MONO x10^3 0.39 0.33 - 0.92 [facility] 10*3/uL SERVICES EOS x10^3 0.14 0.03 - 0.39 [facility] 10*3/uL SERVICES BASO x10^3 <0.03 0.01 - 0.07 [facility] 10*3/uL SERVICES Specimen Blood - ARM, RIGHT Performing Organization Address City/State/Zipcode Phone Number [facility] CLIA: [id number] [place] [address] [place] [address] CT ABDOMEN PELVIS W CONTRAST (10/24/2020 3:20 PM [facility]) Specimen Impressions Performed At PACS/VR/DOSE 1. Postsurgical changes of recent ileostomy reversal surgery with intact anastomosis margins in the distal ileum. 2. Suspected dehiscence of midline sup raumbilical fascia with approximately 1.6 cm opening and herniat ion of omental fat through the defect. 3. Multiple subcutaneous fluid collections, likely p ostsurgical seromas. A 5.2 cm irregularly-shaped thick-walled f luid collection in the pelvis between the bladder and the rectum, poss ibly an abscess. Another differential consideration is an enlarge d corpus luteum, as seen on the prior imaging. Please correlate clinical ly. 4. Diffuse gastric and small bowel wall thickening w ith mild dilatation of jejunum, likely due to nonspecific inflammatory change s. Mild postoperative ileus may be present. Preliminary Report Dictated by Resident: Fatmata Guerin I, Fanny Acevedo MD., have reviewe d this study and agree with the above report. Narrative Performed At This result has an attachment that is no t available. EXAM: CT ABDOMEN/PELVIS WITH CONTRAST PACS/VR/DOSE HISTORY: abdominal pain , outside image. Recent ileo stomy reversal. COMPARISON: CT abdomen and pelvis 09/01/2020 TECHNIQUE AND FINDINGS: CT examination acquisition aster ed 10/24/[address] [facility], labeled with the [facility] name, was submitted for review. CT abdomen and pelvis was obtain ed from the level lung bases to the proximal thighs. Images were loaded to the PACS archive and reviewed on a PACS workstation. FINDINGS: LOWER THORAX: Linear atelectasis in the lower lobes. LIVER: Normal contour. Focal fatty infiltration along the falciform ligament. GALLBLADDER AND BILIARY TREE: No biliary ductal dilati on. The gallbladder is decompressed, unremarkable. SPLEEN: No splenomegaly. PANCREAS: No ductal dilation or masses. ADRENAL GLANDS: No adrenal nodules. KIDNEYS: No hydronephrosis, stones, or masses. PERITONEUM AND RETROPERITONEUM: No intra-abdominal zhou e air. Diffuse mesenteric fat stranding and small volume ascites in t he perihepatic area. Surgical site dehiscence is suspected on the midline s upraumbilical fascia at the level of L3 with fascial opening measuring 1.6 cm (series 501:46). Bulging of omentum is noted with stranding of the chiquita iated portion. A 2.1 x 1.9 x 4.9 cm fluid collection is noted in the overly ing subcutaneous tissue underneath the surgical matt, suggestive of postsurgical seroma. A 2.0 x 4.4 x 2.8 cm simple fluid collection overlies the previous stoma site in the right hemiabdomen. No definite evidence of dehiscence is noted at this surgical site, although limited visualization of fascia due to prominent swelling. LYMPH NODES: No lymphadenopathy. GI TRACT: Diffuse gastric and small bowel wall thicken ing. The jejunum is mildly dilated up to 3.5 cm in the left hemiabdomen (5 02:56). No discrete transient point is identified. Changes of ileostomy re versal is noted in the right lower quadrant with distal ileum anastomosis . Mild distal colonic wall thickening. PELVIS/BLADDER: The urinary bladder is decompressed, m ildly thickened likely due to adjacent swelling. Prior hysterectomy. P reviously noted 2.8 cm corpus luteal cyst is not clearly visualized in the current study. A 2.3 x 5.2 x 3.1 cm with an enhancing wall superior t o the vaginal stump, between the rectum and bladder. VESSELS: Unremarkable. BONES AND SOFT TISSUES: No suspicious lytic or sclerot ic bony lesions. Degenerative changes in the bilateral hips. Procedure Note [facility], Radiant Results Inft User - 2019 8:40 AM [facility] EXAM: CT ABDOMEN/PELVIS WITH CONTRAST HISTORY: abdominal pain , outside image . Recent ileostomy reversal. COMPARISON: CT abdomen and pelvis 2019 TECHNIQUE AND FINDINGS: CT examination a cquisition dated 10/24/2020 from [facility] new Sales with the patients name, was submitted for review. CT abdomen and pel vis was obtained from the level lung bases to the proximal thighs. Image s were loaded to the PACS archive and reviewed on a PACS workstation. FINDINGS: LOWER THORAX: Linear atelectasis in the lower lobes. LIVER: Normal contour. Focal fatty infil tration along the falciform ligament. GALLBLADDER AND BILIARY TREE: No biliary ductal dilation. The gallbladder is decompressed, unremarkable. SPLEEN: No splenomegaly. PANCREAS: No ductal dilation or masses. ADRENAL GLANDS: No adrenal nodules. KIDNEYS: No hydronephrosis, stones, or m asses. PERITONEUM AND RETROPERITONEUM: No intra -abdominal free air. Diffuse mesenteric fat stranding and small volum e ascites in the perihepatic area. Surgical site dehiscence is suspected on the midline supraumbilical fascia at the level of L3 with fascial opening measuring 1.6 cm (series 501:46). Bulging of omentum is noted with strandi ng of the herniated portion. A 2.1 x 1.9 x 4.9 cm fluid collection is noted in the overlying subcutaneous tissue underneath the surgical matt, suggestive of postsurgical seroma. A 2.0 x 4.4 x 2.8 cm simple fluid collec tion overlies the previous stoma site in the right hemiabdomen. No defini te evidence of dehiscence is noted at this surgical site, although limited visualization of fascia due to prominent swelling. LYMPH NODES: No lymphadenopathy. GI TRACT: Diffuse gastric and small santy l wall thickening. The jejunum is mildly dilated up to 3.5 cm in the left hemiabdomen (502:56). No discrete transient point is identified. Changes o f ileostomy reversal is noted in the right lower quadrant with distal ile um anastomosis. Mild distal colonic wall thickening. PELVIS/BLADDER: The urinary bladder is d ecompressed, mildly thickened likely due to adjacent swelling. Prior h ysterectomy. Previously noted 2.8 cm corpus luteal cyst is not clearly vis ualized in the current study. A 2.3 x 5.2 x 3.1 cm with an enhancing w all superior to the vaginal stump, between the rectum and bladder. VESSELS: Unremarkable. BONES AND SOFT TISSUES: No suspicious ly tic or sclerotic bony lesions. Degenerative changes in the bilateral hi ps. IMPRESSION 1. Postsurgical changes of recent ileos deb reversal surgery with intact anastomosis margins in the distal ileum. 2. Suspected dehiscence of midline supr aumbilical fascia with approximately 1.6 cm opening and herniat ion of omental fat through the defect. 3. Multiple subcutaneous fluid collecti ons, likely postsurgical seromas. A 5.2 cm irregularly-shaped thick-walled f luid collection in the pelvis between the bladder and the rectum, poss ibly an abscess. Another differential consideration is an enlarge d corpus luteum, as seen on the prior imaging. Please correlate clinical ly. 4. Diffuse gastric and small bowel wall thickening with mild dilatation of jejunum, likely due to nonspecific infla mmatory changes. Mild postoperative ileus may be present. Preliminary Report Dictated by Resident: Fanny Gonzales MD., have reviewed this study and agree with the above report. Performing Organization Address City/State/Zipcode Phone Number PACS/VR/DOSE documented in this encounter Visit Diagnoses Diagnosis Irritable bowel syndrome, unspecified ty pe - Primary Wound dehiscence Disruption of external operation (surgic al) wound Tachycardia Tachycardia, unspecified E46 Unspecified severe protein-calorie malnutrition documented in this encounter Administered Medications Medication Order MAR Action Action Date Dose Rate Site ALPRAZolam (XANAX) tablet 2 mg Given 10/30/2020 8:18 AM [facility] 2 mg 2 mg, Oral, BID, First dose on Wed10/29/20 at 2000, Until Discontinued, Routine Given 10/29/2020 7:59 PM [facility] 2 mg ciprofloxacin HCl (CIPRO) tablet 500 mg Given 10/30/2020 6:07 PM [facility] 500 mg 500 mg, Oral, Q12HA2, First dose on Wed10/29/20 at 1800, Until Discontinued, LUISA, Reason for Anti-Infective: Empiric Therapy for Suspected Infection, Empiric Therapy Site: Skin / Soft tissue, Duration of therapy: 7 days Given 10/30/2020 6:19 AM [facility] 500 mg Given 10/29/2020 6:25 PM [facility] 500 mg diphenhydrAMINE (BENADRYL) 12.5 mg/5 mL Given 10/30/2020 8:19 A M [facility] 12.5 mg solution 12.5 mg 12.5 mg, Oral, BID, First dose on Wed10/24/20 at 2000, Until Discontinued, Routine Given 10/29/2020 7:59 PM [facility] 12.5 mg Given 10/29/2020 9:12 AM [facility] 12.5 mg enoxaparin (LOVENOX) injection 40 mg Given 10/30/2020 8:19 AM [facility] 40 mg Abdo men-SC 40 mg, Subcutaneous, DAILY, First dose on Wed10/25/20 at 0900, Until Discontinued, Routine Given 10/29/2020 9:12 AM [facility] 40 mg Abdo men-SC Given 10/28/2020 8:34 AM [facility] 40 mg Abdo men-SC HYDROcodone-acetaminophen (HYCET) 7.5-325 Given 10/30/2020 6:07 PM [facility] 10 mg mg/15 mL solution 10 mg 10 mg, Oral, Q6H, First dose on Wed10/25/20 at 1200, Until Discontinued, Routine Given 10/30/2020 12:21 PM [facility] 10 mg Given 10/30/2020 6:19 AM [facility] 10 mg HYDROmorphone (DILAUDID) tablet 2 mg Given 10/30/2020 6:48 PM [facility] 2 mg 2 mg, Oral, Q4HPRN, Starting Wed10/29/20 at 0919, Until Discontinued, Routine, Pain (scale 7-10) Given 10/30/2020 2:14 PM [facility] 2 mg Given 10/30/2020 10:14 AM [facility] 2 mg KCL 20 mEq/15 mL solution 40 mEq Given 10/30/2020 8:19 AM [facility] 40 mEq 40 mEq, Oral, DAILY, First dose on Wed10/29/20 at 0900, Until Discontinued, Routine Given 10/29/2020 9:12 AM [facility] 40 mEq metoprolol tartrate (LOPRESSOR) tablet 2 5 mg Given 10/30/2020 8:20 AM [facility] 25 mg 25 mg, Oral, BID, First dose on Beth 10/24/20 at 2000, Until Discontinued, Routine Given 10/29/2020 7:59 PM [facility] 25 mg Given 10/29/2020 9:12 AM [facility] 25 mg metroNIDAZOLE (FLAGYL) tablet 500 mg Given 10/30/2020 2:14 PM [facility] 500 mg 500 mg, Oral, Q8H, First dose on Wed10/29/20 at 1400, Until Discontinued, Routine, Reason for Anti-Infective: Empiric Therapy for Suspected Infection, Empiric Therapy Site: Abdominal, Duration of therapy: 7 days Given 10/30/2020 6:19 AM [facility] 500 mg Given 10/29/2020 8:58 PM [facility] 500 mg NaCl 0.9% (NS) injection 10 mL 10 mL, Slow IV Push, PRN, Starting 10/26/20 at 093 9, Until Discontinued, Routine, line mechanic proMETHazine (PHENERGAN) 12.5 mg in NaCl Given 10/30/2020 10:14 AM [facility] 12.5 mg 0.9% (NS) 50 mL IV piggyback 12.5 mg, IV Piggyback, Q6HPRN, Starting Beth 10/24/20 at 1829, Until Discontinued, Routine, Nausea and Vomiting (N/V) Given 10/30/2020 3:57 AM [facility] 12.5 mg Given 10/29/2020 9:00 PM [facility] 12.5 mg Medication Order MAR Action Action Date Dose Rate Site ciprofloxacin in 5 % dextrose Given 10/29/2020 9:13 AM [facility] 400 mg (CIPRO) piggyback 400 mg 400 mg, IV Piggyback, Administer over 60 Minutes, Q12H ABX, First dose on Beth 10/24/20 at 2030, Until Discontinued, LUISA, Reason for Anti-Infective: Empiric Non-Surgical Prophylaxis, Duration of therapy: 7 days Given 10/28/2020 8:37 PM [facility] 400 mg Given 10/28/2020 11:35 AM [facility] 400 mg HYDROmorphone (DILAUDID) injection 0.5 m g Given 10/26/2020 4:27 PM [facility] 0.5 mg 0.5 mg, Slow IV Push, Q4HPRN, Starting Beth 10/24/20 at 1832, Until 10/26/20 at 1831, Routine, Pain (scale 7-10), Use approved by (Faculty): GENERAL SURGERY, General surgeon approving: phatak Given 10/26/2020 11:17 AM [facility] 0.5 mg Given 10/26/2020 5:40 AM [facility] 0.5 mg HYDROmorphone (DILAUDID) injection 0.5 m g Given 10/28/2020 8:32 PM [facility] 0.5 mg 0.5 mg, Slow IV Push, Q4HPRN, Starting 10/26/20 at 2346, Until 10/28/20 at 2345, Routine, Pain (scale 7-10), Use approved by (Faculty): GENERAL SURGERY, General surgeon approving: phatak Given 10/28/2020 5:03 PM [facility] 0.5 mg Given 10/28/2020 11:35 AM [facility] 0.5 mg HYDROmorphone (DILAUDID) injection 0.5 m g Given 10/29/2020 5:11 AM [facility] 0.5 mg 0.5 mg, Slow IV Push, Q4HPRN, Starting Tu10/29/20 at 0137, Until Tu10/29/20 at 0836, Routine, Pain (scale 7-10), Use approved by (Faculty): GENERAL SURGERY, General surgeon approving: Phatak Given 10/29/2020 1:43 AM [facility] 0.5 mg HYDROmorphone (DILAUDID) injection 1 mg Given 10/30/2020 8:18 AM [facility] 1 mg 1 mg, Slow IV Push, ONCE, 1 dose, Wed10/30/20 at 0845, Routine, Use approved by (Faculty): GENERAL SURGERY, General surgeon approving: Phatak KCL (KLOR-CON M20) tablet 20 mEq Given 10/28/2020 12:54 AM [facility] 20 mEq 20 mEq, Oral, ONCE, 1 dose, Wed10/28/20 at 0145, Routine KCL (KLOR-CON M20) tablet 40 mEq Given 10/25/2020 11:03 PM [facility] 40 mEq 40 mEq, Oral, ONCE, 1 dose, Wed10/25/20 at 2300, STAT KCL (KLOR-CON M20) tablet 40 mEq Given 10/28/2020 8:34 AM [facility] 40 mEq 40 mEq, Oral, DAILY, First dose on Wed10/28/20 at 0900, Until Discontinued, Routine KCL (POTASSIUM CHLORIDE) 40 mEq in NaCl 0.9% Given 9:20 PM [facility] 40 mEq (NS) 250 mL 40 mEq, Intravenous, Administer over 4 Hours, ONCE, 1 dose, 10/27/20 at 1230, Routine lactated ringers IV infusion New Bag 10/28/2020 1:36 PM [facility] 1,000 mL 100 mL/hr 1,000 mL at 100 mL/hr, 1,000 mL, IV Infusion, CONTINUOUS, Starting Beth 10/24/20 at 1845, Until Tu10/29/20 at 1045, Routine New Bag 10/24/2020 9:37 PM [facility] 1,000 mL 100 mL/hr magnesium oxide (MAG-OX 400) tablet 400 mg Given 10/25/2020 11:03 PM [facility] 400 mg 400 mg, Oral, ONCE, 1 dose, Wed10/25/20 at 2300, LIUSA magnesium sulfate in water 2 gram/50 mL (4 %) New Bag 6:58 PM [facility] 2 g infusion 2 g 2 g, IV Piggyback, ONCE, 1 dose, 10/27/20 at 1230, Routine magnesium sulfate in water 2 gram/50 mL (4 %) New Bag 12:42 PM [facility] 2 g infusion 2 g 2 g, IV Piggyback, ONCE, 1 dose, 10/29/20 at 1145, Routine metroNIDAZOLE in NaCl (iso-os) (FLAGYL I.V.) Given 4:27 AM [facility] 500 mg RTU IV infusion 500 mg 500 mg, IV Infusion, Q8H ABX, First dose on Beth 10/24/20 at 2030, Until Discontinued, 100 mL, Reason for Anti-Infective: Empiric Non-Surgical Prophylaxis, Duration of therapy: 7 days Given 10/28/2020 8:38 PM [facility] 500 mg Given 10/28/2020 1:36 PM [facility] 500 mg proMETHazine (PHENERGAN) 12.5 mg in NaCl Given 10/24/2020 4:28 PM [facility] 12.5 mg 0.9% (NS) 50 mL IV piggyback 12.5 mg, IV Piggyback, ONCE, 1 dose, Beth 10/24/20 at 1445, Routine documented in this encounter Additional Health Concerns Infection Onset Date Last Indicated Resolved Time COVID-19 Rule Out 10/24/2020 10/24/2020 10/24/2020 7: 48 PM [facility] documented as of this encounter
[2020-11-01] MEDS ORDERED: NA CHLORIDE 0.9% 2,000 ML ONE (11:03)
[2020-11-01] MEDS ORDERED: MORPHINE 4 MG/ML SYR ONE (11:03)
[2020-11-01] MEDS ORDERED: ONDANSETRON 4 MG/2 ML VIAL ONE (11:03)
[2020-11-01 11:22] LABS: Protime INR 1.09
[2020-11-01] MEDS ORDERED: PROMETHAZINE INJ 25 MG/ML AMP ONE ×3 (11:25→15:23)
[2020-11-01] MEDS ORDERED: DIPHENHYDRAMINE 50 MG/ML VIAL ONE ×3 (11:25→17:19)
[2020-11-01 11:28] LABS: Basophils % 0.6 % (0-1.3); Hematocrit 35.1 % (36.0-45.0); Lymphocytes % 10.7 % (15.3-44.8); MPV 7.5 fL (7.6-11.3); RBC Red Blood Cell Count 3.71 M/uL (3.86-4.86)
[2020-11-01 11:39] LABS: ALT/SGPT 12 U/L (12-78); AST/SGOT 16 U/L (15-37); Albumin 3.3 g/dL (3.4-5.0); Alkaline Phosphatase 108 U/L (45-117); BUN Blood Urea Nitrogen 10 mg/dL (7-18); Bicarbonate 29 mmol/L (21-32); Bilirubin Direct 0.3 mg/dL (0-0.2); Bilirubin Total 0.8 mg/dL (0.2-1.0); Creatine Phosphokinase 29 U/L (26-192); Glucose Level 159 mg/dL (74-106); Potassium 3.9 mmol/L (3.5-5.1); Protein, Total 9.4 g/dL (6.4-8.2); Sodium Level 138 mmol/L (136-145)
[2020-11-01 11:40] LABS: Amylase 141 U/L (25-115); Lipase 172 U/L (73-393); Troponin (Emerg Dept Use Only) < 0.02 ng/mL (0.0-0.045)
[2020-11-01] MEDS ORDERED: NA CHLORIDE 0.9% 0 ML ONE (11:57)
[2020-11-01] MEDS ORDERED: CEFEPIME/SWI 1gm 10 ML ONE (11:59)
--- NOTE | 2020-11-01 12:27 | RAD REPORT ---
EXAM DESCRIPTION: CT - Abdomen Pelvis Wo Contrast - 11/01/2020 12:05 pm CLINICAL HISTORY: nausea vomiting , recent hospitalization or complications from abdominal surgery COMPARISON: Abdomen Pelvis W Contrast dated 10/24/2020 TECHNIQUE: Axial [address] imaging of the abdomen and pelvis was performed without IV contrast. No IV contrast was given because of allergy, abnormal renal function, patient refusal or physician re quest. No oral contrast administered. All CT scans are performed using dose optimization technique as appropriate and may include automated exposure control or mA/KV adjustment according to patient size. FINDINGS: No suspicious findings in the lung bases. The liver, spleen and pancreas show no suspicious findings on non-contrast imaging. Gallbladder and b iliary tree are also without suspicious finding. No hydronephrosis or suspicious renal mass. No significant adrenal finding. Isodense renal masses an d pyelonephritis cannot be excluded in the absence of IV contrast. The urinary bladder is without sig nificant finding. Fluid fills but does not distend the stomach. No gastric wall thickening or mass evident. Wall thickn ess of the antrum is accentuated due to absent intraluminal content in this region. Mild antritis can not be excluded. No evidence for an outlet mass. Duodenum is unremarkable. The pronounced circumferen tial wall thickening and edema of the small bowel loops detailed October 24 a nearly fully resolved. There is minimal wall thickening within fluid-filled distal small bowel loops. Colon is mostly decom pressed with only a small amount of air and stool present. No primary colon process identified. A sma ll bowel anastomotic site near the terminal ileum no abnormal wall thickening or edema seen. No abnormal air or fluid within the peritoneal cavity. No intraperitoneal abscess. No pneumatosis. No mass or bulky lymphadenopathy. Skin asia are still present along the midline laparotomy incision. Additional skin asia are see n to the right of the umbilicus. Within the deep subcutaneous fatty tissues right-side umbilical leve l there is a 4 centimeter oval low-density collection most likely a postoperative seroma. No air kendra ection within this mass. There is a small defect in the right mid abdominal wall from prior ostomy si te. This is at the level of the 4 centimeter subcutaneous fat collection. Soft tissue attenuation is seen in the subcutaneous fatty tissues between the skin and the abdominal wall at the supraumbilical portion of the midline incision site. A small defect is seen in the midlin e abdominal wall. No air is seen within the subcutaneous fat collection at this site. No suspicious bony findings. No acute vascular finding suspected. Vascular assessment is limited in the absence of contrast. IMPRESSION: No bowel obstruction, free air, abscess or other surgically emergent finding. The pronounced wall thickening and edema of the small bowel loops seen October 24 has essentially fu lly resolved with very minimal remnant in distal small bowel loops along the floor the pelvis. Approximately 4 centimeter presumed seroma in the subcutaneous fatty tissues to the right-side of the umbilicus. This is at the level of the old ostomy site. No air in this collection to suspect abscess . Similar soft tissue attenuation is seen in the subcutaneous fatty tissues between the skin and abdomi nal wall superior aspect of the midline incision. There is a small abdominal wall midline defect. No extension of bowel through this small hernia. Again, no findings that would suggest the subcutaneous attenuation is abscess rather than seroma.
[2020-11-01] MEDS ORDERED: HYDROMORPHONE HCL 1 MG/ML INJ ONE ×2 (12:47→15:24)
[2020-11-01] MEDS ORDERED: PANTOPRAZOLE 40 MG INJ ONE (12:47)
[2020-11-01] MEDS ORDERED: NA CHLORIDE 0.9% 100 ML ONE ×2 (12:48→15:24)
[2020-11-01 13:01] LABS: Blood Morphology Comment NOT SEEN (NOT SEEN); Platelet Estimate INCR
[2020-11-01] MEDS ORDERED: METOPROLOL TARTRATE 5 MG/5 ML INJ IV ONE (14:05)
[2020-11-01] MEDS ORDERED: METOPROLOL TAR 25 MG TAB ONE (14:05)
--- NOTE | 2020-11-01 16:55 | ER ---
Nurse's Notes [facility] Name: Jessica Stearns Age: 45 yrs Sex: Female : 1975 Arrival Date: 11/01/2020 Time: 07:29 Bed 5 Private MD: Diagnosis: Abdominal and pelvic pain;Nausea and vomiting Presentation: 11/01 07:48 Acuity: EVELIA 3 dm5 08:06 Chief complaint: Patient states: discharged from [facility] 2 days ago. Pt was transferred dm5 for complications following abdominal surgery. pt states that something isn't right. Coronavirus screen: Client denies travel out of the [place] in the last 14 days. nausea, vomiting. Client presents with at least one sign or symptom that may indicate coronavirus-19. Ebola Screen: Patient negative for fever greater than or equal to 101.5 degrees Fahrenheit, and additional compatible Ebola Virus Disease symptoms Patient denies exposure to infectious person. Patient denies travel to an Ebola-affected area in the 21 days before illness onset. No symptoms or risks identified at this time. Initial Sepsis Screen: Does the patient meet any 2 criteria? Yes Does the patient have a suspected source of infection? Yes: Skin breakdown/wound Acute abdominal pain. Risk Assessment: Do you want to hurt yourself or someone else? Patient reports no desire to harm self or others. Onset of symptoms was November 01, 2020. 08:06 Method Of Arrival: Wheelchair dm5 [employer]: 11:32 LMP N/A - Post-menopause Historical: - Allergies: 11:08 Bentyl; jl7 11:08 Butalbital Compound; jl7 11:08 Demerol; jl7 11:08 Fentanyl; jl7 11:08 Ketorolac; jl7 11:08 Morphine; jl7 11:08 Reglan; jl7 11:08 Sulfa (Sulfonamide Antibiotics); jl7 11:08 Talwin; jl 11:08 Toradol; jl 11:08 Zofran; jl7 - Home Meds: 11:08 Adderall XR 10 mg Oral cp24 1 cap once daily [Active]; Phenergan 25 mg Oral twice a day jl7 [Active]; ProAir HFA 90 mcg/actuation inhalation HFAA [Active]; Protonix 40 mg Oral TbEC 1 tab once daily [Active]; Xanax 0.5 mg Oral tab 1 tab 3 times per day [Active]; - PMHx: 11:08 Crohn's; gastritis; ibs; jl7 - PSHx: 11:08 ileostomy; ileostomy reversal; Appendectomy; jl7 - Immunization history:: Adult Immunizations unknown. - Social history:: Smoking status: unknown. Screenin:15 Abuse screen: Denies threats or abuse. Denies injuries from another. Nutritional jl7 screening: No deficits noted. Tuberculosis screening: No symptoms or risk factors identified. Fall Risk IV access (20 points). Total Goddard Fall Scale indicates No Risk (0-24 pts). Assessment: 11:32 General: Appears in no apparent distress. uncomfortable, ill, Behavior is cooperative, jl7 anxious. Pain: Complains of pain in left upper quadrant and right upper quadrant and epigastric area Pain currently is 10 out of 10 on a pain scale. Neuro: Level of Consciousness is awake, alert, obeys commands, Oriented to person, place, time, situation. Cardiovascular: Patient's skin is warm and dry. Rhythm is sinus tachycardia. Respiratory: Airway is patent Respiratory effort is even, unlabored, Respiratory pattern is symmetrical, tachypnea. GI: Abdomen is non-distended, Reports nausea, vomiting. Derm: Skin is dry, Skin is pale, Skin temperature is warm. 12:35 Reassessment: Pt states "Please tell the doctor this is what works. 12.5 mg Benadryl, jl7 12.5 mg Phenergan, 1 mg Dilaudid and Protonix." ERD notified, see MAR for orders. Vital Signs: 08:06 BP 132 / 97; Pulse 147; Resp 24; Pulse Ox 100% on R/A; Weight 58.97 kg; Height 5 ft. 7 dm5 in. (170.18 cm); Pain 10/10; 11:15 BP 141 / 83; Pulse 129; Resp 21; Pulse Ox 98% ; jl7 12:28 BP 151 / 88; Pulse 119; Resp 19; Temp 98.3; Pulse Ox 99% ; Pain 10/10; jl7 13:30 BP 151 / 84; Pulse 115; Resp 16; Pulse Ox 98% ; jl7 14:15 BP 111 / 72; Pulse 97; Resp 17; Pulse Ox 99% ; jl7 08:06 Body Mass Index 20.36 (58.97 kg, 170.18 cm) dm5 ED Course: 07:29 Patient arrived in ED. am2 07:48 Triage completed. dm5 08:08 Dc Steve MD is Attending Physician. kdr 08:11 Mehnaz Staley, RN is Primary Nurse. dm5 08:49 EKG done, by ED staff, reviewed by Dc Steve MD. dh3 09:01 BLG 138mg/dL. dh3 10:00 Radiology exam delayed due to IV insertion attempt and/or patient not having sj appropriate IV at this time. 10:20 Missed attempt(s): 22 gauge in right antecubital area. Bleeding controlled, band aid jl7 applied, catheter tip intact. 10:55 Missed attempt(s): 22 gauge in right antecubital area. Bleeding controlled, band aid sv applied, catheter tip intact. 11:05 Accessed peripheral vein via ultrasound, utilizing dynamic ultrasound technique using sv ,sterile technique, per hospital protocol. Clean \\T\\ dry. Dressing intact. Good blood return. Flushes easily. 20 G insyte. 11:15 Patient has correct armband on for positive identification. Placed in gown. Bed in low jl7 position. Call light in reach. Side rails up X 1. campus monitor on. Pulse ox on. NIBP on. 11:32 Arm band placed on right wrist. jl7 14:55 initiated a transfer with Shay from the [facility] Transfer [facility]. eb 15:55 Shay from the [facility] Transfer [facility] called/ she is still working on getting a hold of eb the surgeon who took care of her . 16:23 Shay from the [facility] Transfer [facility] called to let us know she was going to page eb another surgeon since the patients surgeon was not returning her call/ checking to see if we have contacted our surgeon electronic warfare officer. 18:30 No provider procedures requiring assistance completed. IV discontinued, intact, jl7 bleeding controlled, No redness/swelling at site. Pressure dressing applied. Administered Medications: 08:26 CANCELLED (Physician Discretion): Rocephin - (cefTRIAXone) 1 grams IVPB once over 30 dm5 mins; (mix in 50 mL NS) 11:05 Drug: Phenergan 12.5 mg Route: IVP; Site: left antecubital; jl7 12:57 Follow up: Response: No adverse reaction jl7 11:13 Drug: Benadryl 12.5 mg Route: IVP; Site: left antecubital; jl7 12:57 Follow up: Response: No adverse reaction jl7 11:15 Drug: NS 0.9% (30 ml/kg) 30 ml/kg Route: IV; Rate: bolus; Site: left antecubital; jl7 13:00 Follow up: Response: No adverse reaction; IV Status: Completed infusion; IV Intake: [facility] 1770ml 11:15 Drug: morphine 4 mg Route: IVP; Site: left antecubital; jl7 11:45 Follow up: Response: No adverse reaction; Pain is unchanged, physician notified jl7 11:36 Not Given (Other Intervention Used): Zofran (Ondansetron) 4 mg IVP once; over 2 minutes jl7 12:29 Drug: Cefepime 1 grams Route: IVPB; Rate: 200 ml/hr; Infused Over: 30 mins; Site: left jl7 antecubital; 12:30 Follow up: Response: No adverse reaction; IV Status: Completed infusion jl7 12:40 Drug: ProTONIX 40 mg Route: IVP; Site: left antecubital; jl7 18:28 Follow up: Response: No adverse reaction jl7 12:45 Drug: Benadryl 12.5 mg Route: IVP; Site: left antecubital; jl7 13:00 Follow up: Response: No adverse reaction jl7 12:50 Drug: Phenergan 12.5 mg Route: IVP; Site: left antecubital; jl7 13:30 Follow up: Response: No adverse reaction; Nausea is decreased jl7 12:50 Drug: Dilaudid 1 mg Route: IVP; Site: left antecubital; jl7 13:15 Follow up: Response: No adverse reaction; Pain is decreased jl7 14:01 Drug: Lopressor 5 mg Route: IVP; Site: left antecubital; jl7 14:59 Follow up: Response: Cardiac rhythm changed jl7 14:02 Drug: Metoprolol 25 mg Route: PO; jl7 14:59 Follow up: Response: No adverse reaction jl7 15:50 Drug: Dilaudid 1 mg Route: IVP; Site: right antecubital; jl7 16:15 Follow up: Response: No adverse reaction; Pain is decreased jl7 15:50 Drug: Phenergan 12.5 mg Route: IVP; Site: right antecubital; jl7 16:30 Follow up: Response: No adverse reaction; Marked relief of symptoms jl7 17:10 Drug: Benadryl 50 mg Route: IVP; Site: left wrist; jl7 17:30 Follow up: Response: No adverse reaction; Marked relief of symptoms jl7 Intake: 13:00 IV: 1770ml; Total: 1770ml. jl7 Outcome: 16:54 Discharge ordered by . kdr 18:30 Discharged to home ambulatory, with family. jl7 18:30 Condition: stable 18:30 Discharge instructions given to patient, Instructed on discharge instructions, follow up and referral plans. medication usage, Demonstrated understanding of instructions, follow-up care, medications, Prescriptions given X 3. 18:34 Patient left the ED. jl7 Signatures: Mehnaz Staley RN RN dm5 Karo Alva RN RN sv Rittger, Kevin, MD MD kdr Jones, Susan sj Leal, Jahala, RN RN jl7 Ena Krishnan Deanna 3 Lidia Ford
--- NOTE | 2020-11-01 16:55 | EDPHYS ---
Physician Documentation [facility] Name: Jessica Stearns Age: 45 yrs Sex: Female : 1975 Arrival Date: 11/01/2020 Time: 07:29 Bed 5 Private MD: ED Physician Dc Steve HPI: 11/01 08:27 This 45 yrs old Black Female presents to ER via Wheelchair with complaints of kdr Nausea/Vomiting. 08:27 The patient presents to the emergency department with nausea, that is moderate, kdr vomiting, that is intermittent, abdominal pain, of the epigastric area, right upper quadrant and left upper quadrant. Onset: The symptoms/episode began/occurred last night. Possible causes: unknown, flare up of bowel problem. The symptoms are aggravated by food , The symptoms are alleviated by nothing. Associated signs and symptoms: Pertinent positives: abdominal pain, nausea, vomiting, Pertinent negatives: constipation, diarrhea, dysuria, fever, GI bleeding, hematuria, vaginal discharge. Severity of symptoms: At their worst the symptoms were. The patient has experienced similar episodes in the past, multiple times. The patient has been recently seen by a physician: The patient has been recently seen at the [facility] Emergency Department, last week, Was transferred to [facility]. 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-menopause Historical: - Allergies: 11:08 Bentyl; 11:08 Butalbital Compound; 11:08 Demerol; 11:08 Fentanyl; 11:08 Ketorolac; 11:08 Morphine; 11:08 Reglan; 11:08 Sulfa (Sulfonamide Antibiotics); jl 11:08 Talwin; 11:08 Toradol; jl 11:08 Zofran; jl7 - Home Meds: 11:08 Adderall XR 10 mg Oral cp24 1 cap once daily [Active]; Phenergan 25 mg Oral twice a day jl7 [Active]; ProAir HFA 90 mcg/actuation inhalation HFAA [Active]; Protonix 40 mg Oral TbEC 1 tab once daily [Active]; Xanax 0.5 mg Oral tab 1 tab 3 times per day [Active]; - PMHx: 11:08 Crohn's; gastritis; ibs; jl7 - PSHx: 11:08 ileostomy; ileostomy reversal; Appendectomy; jl7 - Immunization history:: Adult Immunizations unknown. - Social history:: Smoking status: unknown. ROS: 08:27 Constitutional: Negative for fever, chills, and weight loss, Eyes: Negative for injury, kdr pain, redness, and discharge, Neck: Negative for injury, pain, and swelling, Cardiovascular: Negative for chest pain, palpitations, and edema, Respiratory: Negative for shortness of breath, cough, wheezing, and pleuritic chest pain, Back: Negative for injury and pain, : Negative for injury, bleeding, discharge, and swelling, MS/Extremity: Negative for injury and deformity, Skin: Negative for injury, rash, and discoloration, Neuro: Negative for headache, weakness, numbness, tingling, and seizure activity. Psych: Negative for depression, anxiety, suicide ideation, homicidal ideation, and hallucinations, Allergy/Immunology: Negative for hives, rash, and allergies, Endocrine: Negative for neck swelling, polydipsia, polyuria, polyphagia, and marked weight changes, Hematologic/Lymphatic: Negative for swollen nodes, abnormal bleeding, and unusual bruising. 08:27 Abdomen/GI: Positive for abdominal pain, nausea and vomiting, abdominal cramps, Negative for constipation, black/tarry stool, rectal pain, rectal bleeding, bowel incontinence. Exam: 08:27 Constitutional: This is a well developed, well nourished patient who is awake, alert, kdr and in moderate distress. Head/Face: Normocephalic, atraumatic. Eyes: Pupils equal round and reactive to light, extra-ocular motions intact. Lids and lashes normal. Conjunctiva and sclera are non-icteric and not injected. Cornea within normal limits. Periorbital areas with no swelling, redness, or edema. Neck: Trachea midline, no thyromegaly or masses palpated, and no cervical lymphadenopathy. Supple, full range of motion without nuchal rigidity, or vertebral point tenderness. No Meningismus. Chest/axilla: Normal chest wall appearance and motion. Nontender with no deformity. No lesions are appreciated. Cardiovascular: Regular rate and rhythm with a normal S1 and S2. No gallops, murmurs, or rubs. Normal PMI, no JVD. No pulse deficits. Respiratory: Lungs have equal breath sounds bilaterally, clear to auscultation and percussion. No rales, rhonchi or wheezes noted. No increased work of breathing, no retractions or nasal flaring. Back: No spinal tenderness. No costovertebral tenderness. Full range of motion. Skin: Warm, dry with normal turgor. Normal color with no rashes, no lesions, and no evidence of cellulitis. MS/ Extremity: Pulses equal, no cyanosis. Neurovascular intact. Full, normal range of motion. Neuro: Awake and alert, GCS 15, oriented to person, place, time, and situation. Cranial nerves II-XII grossly intact. Motor strength 5/5 in all extremities. Sensory grossly intact. Cerebellar exam normal. Normal gait. Psych: Awake, alert, with orientation to person, place and time. Behavior, mood, and affect are within normal limits. 08:27 Abdomen/GI: Inspection: There are multiple incisions that are healing with asia still present and a minor amount of clear drainage. No puss noted. 08:58 ECG was reviewed by the Attending Physician. kdr Vital Signs: 08:06 BP 132 / 97; Pulse 147; Resp 24; Pulse Ox 100% on R/A; Weight 58.97 kg; Height 5 ft. 7 dm5 in. (170.18 cm); Pain 10/10; 11:15 BP 141 / 83; Pulse 129; Resp 21; Pulse Ox 98% ; jl7 12:28 BP 151 / 88; Pulse 119; Resp 19; Temp 98.3; Pulse Ox 99% ; Pain 10/10; jl7 13:30 BP 151 / 84; Pulse 115; Resp 16; Pulse Ox 98% ; jl7 14:15 BP 111 / 72; Pulse 97; Resp 17; Pulse Ox 99% ; jl7 08:06 Body Mass Index 20.36 (58.97 kg, 170.18 cm) dm5 MDM: 08:27 Data reviewed: vital signs, nurses notes, lab test result(s), radiologic studies. kdr Counseling: I had a detailed discussion with the patient and/or guardian regarding: the historical points, exam findings, and any diagnostic results supporting the discharge/admit diagnosis, lab results, radiology results, the need to transfer to another facility. 16:54 Patient medically screened. kdr 11/01 08:11 Order name: COVID-19 kdr 11/01 13:16 Order name: SARS-COV-2 RT PCR; Complete Time: 15:07 EDFL 11/01 13:16 Order name: CBC with Manual Differential; Complete Time: 15:07 EDFL 11/01 13:16 Order name: Amylase EDMS 11/01 13:16 Order name: Basic Metabolic Panel EDFL 11/01 13:16 Order name: Creatine Phosphokinase EDFL 11/01 13:16 Order name: Lactate EDFL 11/01 13:16 Order name: Lipase EDFL 11/01 13:16 Order name: Liver (Hepatic) Function EDFL 11/01 13:16 Order name: Protime (+INR) EDFL 11/01 13:16 Order name: PTT, Activated Partial Thromb EDFL 11/01 13:16 Order name: Troponin (Emerg Dept Use Only) EDFL 11/01 13:16 Order name: Blood Culture EDFL 11/01 13:16 Order name: Glucose, Ancillary Testing EDFL 11/01 14:25 Order name: Lactate Sepsis 2 HR Follow-up; Complete Time: 15:07 [facility] 11/01 15:51 Order name: Urine Dipstick--Ancillary (enter results) 11/01 08:11 Order name: Chest Single View XRAY [facility] 11/01 08:11 Order name: Accucheck; Complete Time: 09:02 [facility] 11/01 08:11 Order name: Cardiac monitoring; Complete Time: 08:43 [facility] 11/01 08:11 Order name: EKG - Nurse/Tech; Complete Time: 08:43 [facility] 11/01 08:11 Order name: IV Saline Lock - Large Bore; Complete Time: 11:49 [facility] 11/01 08:11 Order name: Labs collected and sent; Complete Time: 11:49 [facility] 11/01 08:11 Order name: O2 Per Protocol; Complete Time: 08:43 [facility] 11/01 08:11 Order name: O2 Sat Monitoring; Complete Time: 08:43 [facility] 11/01 08:11 Order name: Urine Dipstick-Ancillary (obtain specimen); Complete Time: 18:30 [facility] 11/01 08:23 Order name: CT Abd/Pelvis - IV Contrast Only [facility] 11/01 13:32 Order name: Abdomen EDFL 11/01 15:51 Order name: Urine --Ancillary (enter results) eb 11/01 18:31 Order name: Urine Culture jl7 EC:58 Rate is 126 beats/min. Rhythm is regular, Sinus tachycardia with No ectopy. QRS [place] is kdr Normal. MD interval is normal. QRS interval is normal. QT interval is normal. Clinical impression: NSR w/ Non-specific ST/T Changes and Sinus tachycardia. Administered Medications: 08:26 CANCELLED (Physician Discretion): Rocephin - (cefTRIAXone) 1 grams IVPB once over 30 dm5 mins; (mix in 50 mL NS) 11:05 Drug: Phenergan 12.5 mg Route: IVP; Site: left antecubital; jl7 12:57 Follow up: Response: No adverse reaction jl7 11:13 Drug: Benadryl 12.5 mg Route: IVP; Site: left antecubital; jl7 12:57 Follow up: Response: No adverse reaction jl7 11:15 Drug: NS 0.9% (30 ml/kg) 30 ml/kg Route: IV; Rate: bolus; Site: left antecubital; jl7 13:00 Follow up: Response: No adverse reaction; IV Status: Completed infusion; IV Intake: [facility] 1770ml 11:15 Drug: morphine 4 mg Route: IVP; Site: left antecubital; jl7 11:45 Follow up: Response: No adverse reaction; Pain is unchanged, physician notified jl7 11:36 Not Given (Other Intervention Used): Zofran (Ondansetron) 4 mg IVP once; over 2 minutes jl7 12:29 Drug: Cefepime 1 grams Route: IVPB; Rate: 200 ml/hr; Infused Over: 30 mins; Site: left jl7 antecubital; 12:30 Follow up: Response: No adverse reaction; IV Status: Completed infusion jl7 12:40 Drug: ProTONIX 40 mg Route: IVP; Site: left antecubital; jl7 18:28 Follow up: Response: No adverse reaction jl7 12:45 Drug: Benadryl 12.5 mg Route: IVP; Site: left antecubital; jl7 13:00 Follow up: Response: No adverse reaction jl7 12:50 Drug: Phenergan 12.5 mg Route: IVP; Site: left antecubital; jl7 13:30 Follow up: Response: No adverse reaction; Nausea is decreased jl7 12:50 Drug: Dilaudid 1 mg Route: IVP; Site: left antecubital; jl7 13:15 Follow up: Response: No adverse reaction; Pain is decreased jl7 14:01 Drug: Lopressor 5 mg Route: IVP; Site: left antecubital; jl7 14:59 Follow up: Response: Cardiac rhythm changed jl7 14:02 Drug: Metoprolol 25 mg Route: PO; jl7 14:59 Follow up: Response: No adverse reaction jl7 15:50 Drug: Dilaudid 1 mg Route: IVP; Site: right antecubital; jl7 16:15 Follow up: Response: No adverse reaction; Pain is decreased jl7 15:50 Drug: Phenergan 12.5 mg Route: IVP; Site: right antecubital; jl7 16:30 Follow up: Response: No adverse reaction; Marked relief of symptoms jl7 17:10 Drug: Benadryl 50 mg Route: IVP; Site: left wrist; jl7 17:30 Follow up: Response: No adverse reaction; Marked relief of symptoms jl7 Disposition: 11/01/20 16:54 Discharged to Home. Impression: Abdominal and pelvic pain, Nausea and vomiting. - Condition is Stable. - Discharge Instructions: Nausea and Vomiting, Adult, [id number], Abdominal Pain, Adult, [id number]. - Prescriptions for Pepcid 20 mg Oral Tablet - take 1 tablet by ORAL route every 12 hours for 5 days; 30 tablet. Protonix 40 mg Oral Tablet - take 1 tablet by ORAL route once daily; 30 tablet. Phenergan 25 mg Rectal Suppository - insert 1 suppository by RECTAL route every 6 hours As needed; 20 suppository. - Medication Reconciliation Form, Thank You Letter form. - Follow up: Private Physician; When: 2 - 3 days; Reason: If symptoms return, Further diagnostic work-up, Recheck today's complaints, Continuance of care, Re-evaluation by your physician. Signatures: Dispatcher [employer] EDMS Dc Steve MD MD kdr Sanford, Demi ds1 Bessie Long RN RN jl7 Mehnaz Staley RN dm5 Corrections: (The following items were deleted from the chart) 08:26 08:11 Rocephin - (cefTRIAXone) 1 grams IVPB once over 30 mins; (mix in 50 mL NS) dm5 ordered. kdr 14:23 13:17 AMYLASE, SERUM+C.LAB.BRZ ordered. EDMS EDMS 14:23 13:17 BASIC METABOLIC PANEL+C.LAB.BRZ ordered. EDMS EDMS 14:23 13:17 BLOOD CULTURE*+BA.LAB.BRZ ordered. EDMS EDMS 14:23 13:17 CBC+H.LAB.BRZ ordered. EDMS EDMS 14:23 13:17 CKMB+C.LAB.BRZ ordered. EDMS EDMS 14:23 13:17 CREATINE PHOSPHOKINASE+C.LAB.BRZ ordered. EDMS EDMS 14:23 13:17 LACTATE+C.LAB.BRZ ordered. EDMS EDMS 14:24 13:17 HEPATIC FUNCTION+C.LAB.BRZ ordered. EDMS EDMS 14:24 13:17 LIPASE+C.LAB.BRZ ordered. EDMS EDMS 14:24 13:17 Procalcitonin+C.LAB.BRZ ordered. EDMS EDMS 14:24 13:17 PROTIME (+INR)+COAG.LAB.BRZ ordered. EDMS EDMS 14:24 13:17 PTT, ACTIVATED+COAG.LAB.BRZ ordered. EDMS EDMS 14:24 13:17 TROPONIN (EMERG DEPT USE ONLY)+C.LAB.BRZ ordered. EDMS EDMS 14:24 13:17 UA MICROSCOPIC+U.LAB.BRZ ordered. EDMS EDMS 18:34 16:54 11/01/2020 16:54 Discharged to Home. Impression: Abdominal and pelvic pain; jl7 Nausea and vomiting. Condition is Stable. Forms are Medication Reconciliation Form, Thank You Letter, Antibiotic Education, Prescription Opioid Use. Follow up: Private Physician; When: 2 - 3 days; Reason: If symptoms return, Further diagnostic work-up, Recheck today's complaints, Continuance of care, Re-evaluation by your physician. kdr
[2020-11-01 18:07] LABS: Urine Blood NEGATIVE (NEG); Urine Glucose NEGATIVE (NEG); Urine Protein 1+ (NEG); Urine pH 5.5 (5.0-7.0)
[2020-11-04 16:47] VITALS: TEMP 98.3
[2020-11-04 16:49] VITALS: BP 111/72; O2SAT 99
== END 2020-11-01 18:34 | disposition home or self-care (01) ==
LOC: ER 07:27
DX: R11.2 Nausea with vomiting, unspecified (principal); R10.2 Pelvic and perineal pain; Z20.828 Contact with and (suspected) exposure to other viral communicable diseases; K50.90 Crohn's disease, unspecified, without complications; Z88.2 Allergy status to sulfonamides; Z88.5 Allergy status to narcotic agent; Z88.8 Allergy status to other drugs, medicaments and biological substances
CPT/HCPCS: 36415; 74176; 80048; 80076; 81003; 81025; 82150; 82550; 82947; 83605; 83690; 84484; 85025; 85610; 85730; 87040; 87086; 87088; 93005; 99285; C9113; J0692; J1170; J1200; J2405; J2550; J7030; J7040; U0003

== ENCOUNTER 2021-08-02 16:56 | Emergency (ER) | payer SELFPAY ==
[2021-08-02] MEDS ORDERED: PROMETHAZINE INJ 25 MG/ML AMP ONE ×2 (17:46→20:45)
[2021-08-02] MEDS ORDERED: NA CHLORIDE 0.9% 1,000 ML ONE (17:46)
[2021-08-02] MEDS ORDERED: PANTOPRAZOLE 40 MG INJ ONE (18:46)
[2021-08-02] MEDS ORDERED: HYDROMORPHONE HCL 1 MG/ML INJ ONE (18:51)
[2021-08-02] MEDS ORDERED: NA CHLORIDE 0.9% 50 ML ONE (18:51)
[2021-08-02 18:58] LABS: ALT/SGPT 37 U/L (12-78); AST/SGOT 17 U/L (15-37); Albumin 3.4 g/dL (3.4-5.0); Alkaline Phosphatase 59 U/L (45-117); BUN Blood Urea Nitrogen 9 mg/dL (7-18); Bicarbonate 33 mmol/L (21-32); Bilirubin Direct 0.2 mg/dL (0-0.2); Bilirubin Total 0.6 mg/dL (0.2-1.0); Glucose Level 81 mg/dL (74-106); Lipase 86 U/L (73-393); Potassium 3.7 mmol/L (3.5-5.1); Protein, Total 7.2 g/dL (6.4-8.2); Sodium Level 140 mmol/L (136-145)
[2021-08-02] MEDS ORDERED: DIPHENHYDRAMINE 50 MG/ML VIAL ONE ×2 (19:23→20:47)
--- NOTE | 2021-08-02 19:43 | RAD REPORT ---
EXAM DESCRIPTION: CT - Abdomen Pelvis W Contrast - 08/02/2021 7:19 pm CLINICAL HISTORY: ABD PAIN COMPARISON: CT study October 2020 TECHNIQUE: Biphasic, helical CT imaging of the abdomen and pelvis was performed following 100 ml non -ionic IV contrast. No oral contrast administered. All CT scans are performed using dose optimization technique as appropriate and may include automated exposure control or mA/KV adjustment according to patient size. FINDINGS: No suspicious findings in the lung bases. The liver, spleen, and pancreas show no suspicious findings. Gallbladder and biliary tree are also wi thout suspicious finding. Symmetric renal function is seen with no hydronephrosis or suspicious renal mass. No pyelonephritis o r acute parenchymal process. No bladder abnormalities. No adrenal abnormalities. Uterus is absent or atrophic. Ovaries are not clearly defined. No primary ovarian process suspected. No gastric dilatation or gastric wall thickening. There is very little content within the gastric lum en. Small bowel loops are not dilated. There are several prominent fluid-filled small bowel loops xena ng the pelvic floor. Appendix is not clearly defined and may be surgically absent. Appendicitis is no t suspected. Surgical clips are present in the colon from prior colostomy and reversal. No free air, free fluid or inflammatory stranding. No hernia, mass or bulky lymphadenopathy. No suspicious bony findings. IMPRESSION: Contrast enhanced CT abdomen and pelvis showing no emergent finding. A few distal small bowel loops are prominent. A mild inflammatory bowel process or mild Crohn's disea se flare up would be possible.
--- NOTE | 2021-08-02 19:59 | EDPHYS ---
Physician Documentation [facility] Name: Jessica Stearns Age: 45 yrs Sex: Female : 1975 Arrival Date: 08/02/2021 Time: 16:57 Bed 28 Private MD: ED Physician Dc Steve HPI: 08/02 19:24 This 45 yrs old Black Female presents to ER via Ambulatory with complaints of Crohns, kb r/o covid. 19:24 The patient presents with abdominal pain. Onset: The symptoms/episode began/occurred 2 kb day(s) ago. The symptoms do not radiate. Associated signs and symptoms: Pertinent positives: nausea and vomiting. The symptoms are described as constant. Modifying factors: The symptoms are alleviated by nothing, the symptoms are aggravated by nothing. Severity of pain: At its worst the pain was moderate in the emergency department the pain is unchanged. The patient has not experienced similar symptoms in the past. The patient has not recently seen a physician. Pt reports cough, congestion, rhinorrhea, sore throat, sneezing, abd pain, nausea and vomiting that started 2 days ago. Pt concerned that she has covid. Historical: - Allergies: 17:10 Bentyl; aa5 17:10 Butalbital Compound; aa5 17:10 Demerol; aa5 17:10 Fentanyl; aa5 17:10 Ketorolac; aa5 17:10 Morphine; aa5 17:10 Reglan; aa5 17:10 Sulfa (Sulfonamide Antibiotics); aa5 17:10 Talwin; aa5 17:10 Toradol; aa5 17:10 Zofran; aa5 - PMHx: 17:10 Crohn's; gastritis; ibs; aa5 - PSHx: 17:10 Colostomy and reversal; aa5 - Immunization history:: Client reports having NOT received the Covid vaccine. - Social history:: Smoking status: Patient denies any tobacco usage or history of. ROS: 19:21 Constitutional: Negative for fever, chills, and weight loss. kb 19:21 ENT: Positive for rhinorrhea, sinus congestion, sore throat, sneezing. 19:21 Respiratory: Positive for cough, Negative for dyspnea on exertion, hemoptysis, orthopnea, pleurisy, shortness of breath, sputum production, wheezing. 19:21 Abdomen/GI: Positive for abdominal pain, nausea and vomiting, Negative for diarrhea. 19:21 All other systems are negative. Exam: 19:23 Constitutional: This is a well developed, well nourished patient who is awake, alert, kb and in no acute distress. Head/Face: Normocephalic, atraumatic. ENT: Moist Mucous membranes Cardiovascular: Regular rate and rhythm with a normal S1 and S2. No gallops, murmurs, or rubs. No pulse deficits. Respiratory: Respirations even and unlabored. No increased work of breathing, no retractions or nasal flaring. Skin: Warm, dry with normal turgor. Normal color. MS/ Extremity: Pulses equal, no cyanosis. Neurovascular intact. Full, normal range of motion. Neuro: Awake and alert, GCS 15, oriented to person, place, time, and situation. Moves all extremities. Normal gait. Psych: Awake, alert, with orientation to person, place and time. Behavior, mood, and affect are within normal limits. 19:23 Abdomen/GI: Inspection: abdomen appears normal, Bowel sounds: normal, Palpation: soft, in all quadrants, mild abdominal tenderness, in all quadrants. Vital Signs: 17:08 BP 117 / 87; Pulse 115; Resp 18 S; Temp 98.0(TE); Pulse Ox 100% on R/A; aa5 17:18 Weight 53.52 kg (M); iw 21:00 BP 128 / 108; Pulse 81; Resp 17; Temp 98.6(O); Pulse Ox 100% on R/A; Pain 8/10; bc5 MDM: 17:15 Patient medically screened. kb 17:42 Data reviewed: vital signs, nurses notes. Data interpreted: Pulse oximetry: on room air kb is 100 %. Interpretation: normal. 18:25 ED course: Pt shouting profanities at staff and wants dilaudid before she will do any kb testing. 19:53 Counseling: I had a detailed discussion with the patient and/or guardian regarding: the kb historical points, exam findings, and any diagnostic results supporting the discharge/admit diagnosis, lab results, radiology results, the need for outpatient follow up, a linux systems administrator, to return to the emergency department if symptoms worsen or persist or if there are any questions or concerns that arise at home. 08/02 17:16 Order name: Basic Metabolic Panel; Complete Time: 18:59 kb 08/02 17:16 Order name: Hepatic Function; Complete Time: 18:59 kb 08/02 17:16 Order name: Lipase; Complete Time: 18:59 kb 08/02 18:41 Order name: SARS-COV-2 RT PCR; Complete Time: 18:45 EDMS 08/02 17:17 Order name: CT Abd/Pelvis - IV Contrast Only; Complete Time: 19:46 kb 08/02 19:07 Order name: XRAY Chest (1 view) tt3 08/02 17:16 Order name: IV Saline Lock; Complete Time: 18:57 kb 08/02 17:16 Order name: Labs collected and sent; Complete Time: 18:57 kb Administered Medications: 18:25 Drug: NS 0.9% 1000 ml Route: IV; Rate: 1000 ml; Site: right upper arm; rb3 18:25 Drug: Phenergan (promethazine) 12.5 mg Route: IVP; Site: right upper arm; rb3 18:40 Follow up: Response: No adverse reaction; Nausea is decreased rb3 18:25 Drug: ProTONIX (pantoprazole) 40 mg Route: IVP; Site: right upper arm; rb3 18:40 Follow up: Response: No adverse reaction rb3 18:32 Drug: Dilaudid (HYDROmorphone) 1 mg Route: IVP; Infused Over: 1 hrs; Site: right upper rb3 arm; 19:00 Follow up: Response: No adverse reaction; Pain is decreased rb3 19:02 Drug: Benadryl (diphenhydrAMINE) 12.5 mg Route: IVP; Site: right upper arm; rb3 20:59 Drug: Dilaudid (HYDROmorphone) 0.5 mg Route: IVP; Infused Over: 3 mins; Site: right bc5 upper arm; 20:59 Drug: Cipro (ciprofloxacin) 500 mg Route: PO; bc5 20:59 Drug: Flagyl (metroNIDAZOLE) 500 mg Route: PO; bc5 21:00 Drug: Benadryl (diphenhydrAMINE) 12.5 mg Route: IVP; Site: right upper arm; bc5 21:00 Drug: Phenergan (promethazine) 12.5 mg Route: IVP; Infused Over: 3 mins; Site: right bc5 upper arm; 21:00 Drug: SOLU-Medrol (methylPrednisoLONE) 125 mg Route: IVP; Site: right upper arm; bc5 Disposition Summary: 08/02/21 19:58 Discharge Ordered Location: Home kb Condition: Stable kb Diagnosis - Crohn's disease, unspecified, without complications kb Followup: kb - With: Emergency Department - When: As needed - Reason: Worsening of condition Followup: kb - With: Private Physician - When: 2 - 3 days - Reason: Recheck today's complaints, Continuance of care, Re-evaluation by your physician Discharge Instructions: - Discharge Summary Sheet kb - Crohn's Disease kb Forms: - Medication Reconciliation Form kb - Thank You Letter kb - Antibiotic Education kb - Prescription Opioid Use kb Prescriptions: - Cipro 500 mg Oral Tablet - take 1 tablet by ORAL route every 12 hours for 10 days; 20 tablet; Refills: 0, kb Product Selection Permitted - Flagyl 500 mg Oral Tablet - take 1 tablet by ORAL route every 8 hours for 10 days; 30 tablet; Refills: 0, kb Product Selection Permitted - Prednisone 20 mg Oral Tablet - take 1 tablet by ORAL route once daily for 5 days; 5 tablet; Refills: 0, kb Product Selection Permitted Addendum: 08/04/2021 10:03 Co-signature as Attending Physician, Dc Steve MD I agree with the assessment and k dr plan of care. Signatures: Dispatcher [employer] [facility] Melissa David, DATABASE TESTER-C DATABASE TESTER-Dc Tee MD MD [facility] Ivelisse Connor RN RN aa5 Amanda Cisse, RN RN rb3 Iona Merino, RN RN bc5 Corrections: (The following items were deleted from the chart) 08/02 17:48 17:17 CORONAVIRUS+MR.LAB.BRZ ordered. [facility] EDOR 19:25 19:21 ENT: Positive for rhinorrhea, sinus congestion, sneezing, kb kb
--- NOTE | 2021-08-02 19:59 | ER ---
Nurse's Notes [facility] Name: Jessica Stearns Age: 45 yrs Sex: Female : 1975 Arrival Date: 08/02/2021 Time: 16:57 Bed 28 Private MD: Diagnosis: Crohn's disease, unspecified, without complications Presentation: 08/02 17:08 Chief complaint: Patient states: "I feel like I am having a crohn's flare up". Pt aa5 reports vomiting, nausea, abd pain, sore throat, and cough x 2 days ago. Coronavirus screen: cough unrelated to allergies, sore throat, vomiting. Ebola Screen: Patient negative for fever greater than or equal to 101.5 degrees Fahrenheit, and additional compatible Ebola Virus Disease symptoms. Initial Sepsis Screen: Does the patient meet any 2 criteria? HR > 90 bpm. Does the patient have a suspected source of infection? No. Patient's initial sepsis screen is negative. Risk Assessment: Do you want to hurt yourself or someone else? Patient reports no desire to harm self or others. Onset of symptoms was July 2021. 17:08 Method Of Arrival: Ambulatory aa5 17:08 Acuity: EVELIA 3 aa5 Historical: - Allergies: 17:10 Bentyl; aa5 17:10 Butalbital Compound; aa5 17:10 Demerol; aa5 17:10 Fentanyl; aa5 17:10 Ketorolac; aa5 17:10 Morphine; aa5 17:10 Reglan; aa5 17:10 Sulfa (Sulfonamide Antibiotics); aa5 17:10 Talwin; aa5 17:10 Toradol; aa5 17:10 Zofran; aa5 - PMHx: 17:10 Crohn's; gastritis; ibs; aa5 - PSHx: 17:10 Colostomy and reversal; aa5 - Immunization history:: Client reports having NOT received the Covid vaccine. - Social history:: Smoking status: Patient denies any tobacco usage or history of. Screenin:15 Abuse screen: Denies threats or abuse. Nutritional screening: No deficits noted. rb3 Tuberculosis screening: No symptoms or risk factors identified. Fall Risk None identified. Assessment: 17:15 General: Appears in no apparent distress. comfortable, Behavior is calm, cooperative, rb3 Denies fever. Pain: Complains of pain in abdomen Pain currently is 9 out of 10 on a pain scale. Neuro: Level of Consciousness is awake, alert, obeys commands, Oriented to person, place, time, situation. Cardiovascular: Patient's skin is warm and dry. Respiratory: Reports cough that is since x 2 days Airway is patent Respiratory effort is even, unlabored, Respiratory pattern is regular, symmetrical. GI: Reports nausea. : No signs and/or symptoms were reported regarding the genitourinary system. EENT: Reports sore throat. 18:11 Reassessment: Patient appears in no apparent distress at this time. Patient is alert, rb3 oriented x 3, equal unlabored respirations, skin warm/dry/pink. 18:25 Reassessment: Pt is agitated and using profanity because she is upset and refuses to go rb3 to CT until she gets Dilaudid. Provider notified. Vital Signs: 17:08 BP 117 / 87; Pulse 115; Resp 18 S; Temp 98.0(TE); Pulse Ox 100% on R/A; aa5 17:18 Weight 53.52 kg (M); iw 21:00 BP 128 / 108; Pulse 81; Resp 17; Temp 98.6(O); Pulse Ox 100% on R/A; Pain 8/10; bc5 ED Course: 16:57 Patient arrived in ED. as 17:08 Arm band placed on. aa5 17:10 Triage completed. aa5 17:15 Melissa [facility] FNP-C [facility]. kb 17:15 Dc Steve MD is Attending Physician. kb 17:15 Patient has correct armband on for positive identification. Bed in low position. Call rb3 light in reach. Side rails up X 1. Pulse ox on. NIBP on. Warm blanket given. 17:16 Amanda Cisse, ZARA is Primary Nurse. rb3 18:05 Missed attempt(s): Bleeding controlled, band aid applied, catheter tip intact. rb3 18:11 Missed attempt(s): Bleeding controlled, band aid applied, catheter tip intact. rb3 18:20 Accessed Midline using ,sterile technique, Clean \\T\\ dry. Dressing intact. Good blood rb3 return. Flushes easily. Inserted in right upper arm by Vinicio, RN. 19:19 CT Abd/Pelvis - IV Contrast Only In Process Unspecified. EDMS 19:53 XRAY Chest (1 view) In Process Unspecified. EDMS 20:11 No provider procedures requiring assistance completed. bc5 21:02 IV discontinued, intact, bleeding controlled, No redness/swelling at site. bc5 Administered Medications: 18:25 Drug: NS 0.9% 1000 ml Route: IV; Rate: 1000 ml; Site: right upper arm; rb3 18:25 Drug: Phenergan (promethazine) 12.5 mg Route: IVP; Site: right upper arm; rb3 18:40 Follow up: Response: No adverse reaction; Nausea is decreased rb3 18:25 Drug: ProTONIX (pantoprazole) 40 mg Route: IVP; Site: right upper arm; rb3 18:40 Follow up: Response: No adverse reaction rb3 18:32 Drug: Dilaudid (HYDROmorphone) 1 mg Route: IVP; Infused Over: 1 hrs; Site: right upper rb3 arm; 19:00 Follow up: Response: No adverse reaction; Pain is decreased rb3 19:02 Drug: Benadryl (diphenhydrAMINE) 12.5 mg Route: IVP; Site: right upper arm; rb3 20:59 Drug: Dilaudid (HYDROmorphone) 0.5 mg Route: IVP; Infused Over: 3 mins; Site: right bc5 upper arm; 20:59 Drug: Cipro (ciprofloxacin) 500 mg Route: PO; bc5 20:59 Drug: Flagyl (metroNIDAZOLE) 500 mg Route: PO; bc5 21:00 Drug: Benadryl (diphenhydrAMINE) 12.5 mg Route: IVP; Site: right upper arm; bc5 21:00 Drug: Phenergan (promethazine) 12.5 mg Route: IVP; Infused Over: 3 mins; Site: right bc5 upper arm; 21:00 Drug: SOLU-Medrol (methylPrednisoLONE) 125 mg Route: IVP; Site: right upper arm; bc5 Outcome: 19:58 Discharge ordered by MD. burgos 21:01 Discharged to home ambulatory, with family. bc5 21:01 Condition: improved 21:01 Discharge instructions given to patient, Prescriptions given X 3. 21:15 Patient left the ED. bc5 Signatures: Dispatcher [employer] EDMS Frankie, Melissa, GLUER MACHINE SETUP OPERATOR-C GLUER MACHINE SETUP OPERATOR-Ckb Yessy Hunter Irene, RN RN iw Ivelisse Connor, RN RN aa5 Amanda Cisse, RN RN rb3 Iona Merino, RN RN bc5
[2021-08-02] MEDS ORDERED: METHYLPREDNISOLONE 125 MG INJ ONE (20:45)
[2021-08-02] MEDS ORDERED: metroNIDAZOLE 500 MG TABLET ONE (20:45)
[2021-08-02] MEDS ORDERED: CIPROFLOXACIN HCL 500 MG TAB ONE (20:45)
[2021-08-02] MEDS ORDERED: DIPHENHYDRAMINE 12.5MG/5ML LIQ ONE (20:46)
[2021-08-02] MEDS ORDERED: HYDROMORPHONE HCL 0.5 MG/0.5 ML INJ ONE (20:46)
--- NOTE | 2021-08-02 21:19 | RAD REPORT ---
EXAM DESCRIPTION: RAD - Chest Single View - 08/02/2021 7:53 pm CLINICAL HISTORY: COUGH COMPARISON: June 2019 TECHNIQUE: AP portable chest image was obtained 08/02/2021 7:53 pm . FINDINGS: No acute lung parenchymal process. Interstitial pattern matches comparison. Heart and vasc ulature are normal. No measurable pleural effusion and no pneumothorax. No acute bony abnormality see n. No acute aortic findings suspected. IMPRESSION: No acute cardiopulmonary process. No significant change from comparison study.
[2021-08-02 22:32] VITALS: O2SAT 100
[2021-08-02 22:34] VITALS: BP 128/108; TEMP 98.6
== END 2021-08-02 21:15 | disposition home or self-care (01) ==
LOC: ER 16:56
DX: K50.90 Crohn's disease, unspecified, without complications (principal); Z20.822 Contact with and (suspected) exposure to COVID-19; Z88.2 Allergy status to sulfonamides; Z88.5 Allergy status to narcotic agent; Z88.8 Allergy status to other drugs, medicaments and biological substances
CPT/HCPCS: 71045; 74177; 80048; 80076; 82565; 83690; 96374; 96375; 99284; C9113; J1170; J1200; J2550; J2930; J7030; Q0163; Q9967; U0003

== ENCOUNTER 2021-10-31 12:02 | Emergency (ER) | payer SELFPAY ==
--- OUTSIDE RECORDS SUMMARY | 2021-10-31 12:17 | XMS REPORT | Continuity of Care Document ---
:1975 Author Organization [facility] t Address [address] [place] [address] Care Team Providers Name Role Phone Pcp, Does Not Have A Primary Care Physician KALEE Attending Clinician Unavailable Doctor Unassigned, Name Attending Clinician Unavailable IBRAHIMA KAPADIA Attending Clinician Unavailable Nina Villanueva Attending Clinician Unavailable Alfredo CARDONAW, W Attending Clinician Unavailable Gavin MONTANA Attending Clinician Unavailable Kalee FOREMAN Attending Clinician James RN, E Attending Clinician Gavin Vanessa Attending Clinician Nelson Attending Clinician Only, Test Attending Clinician Unavailable Tigist Chakraborty DO Attending Clinician Delta OBANDO Attending Clinician Ted FOREMAN Attending Clinician Alejandro FOREMAN Attending Clinician Alexander FOREMAN, S Attending Clinician Nirmala MANSFIELDP, R Attending Clinician Raj RN, A Attending Clinician Unavailable Freddy FOREMAN Attending Clinician James ZUÑIGA, M Attending Clinician Naun Canela MD Attending Clinician Duane FOREMAN, Tigist Attending Clinician NAUN CANELA Attending Clinician Unavailable Roseline MANSFIELDP, F Attending Clinician KALEE Admitting Clinician Unavailable Physician, Primary or Family Admitting Clinician Unavailjenaro Clark MD Admitting Clinician Ted FOREMAN Admitting Clinician Duane FOREMAN, Tigist Admitting Clinician Payers Payer Name Policy Type Policy Number Effective Date Expiration Date S ource MEDICAID SSI PENDING 2020 PENDING 00:00:00 Problems Condition Condition Condition Status Onset Resolution Last Treating Co mments Source Name Details Category Date Date Treatment Clinician Date E46 E46 Disease Active 2019-11 Univers Unspecifie Unspecifie 2-11 it y of d severe d severe 00:00: [place] protein-ca protein-ca 00 Me dical laly ruffin [place] malnutriti malnutriti on on Wound Wound Disease Active 2019-11 Univers dehiscence dehiscence 2-10 it y of 00:00: [address] Branch Elective Elective Disease Active 2019-11 Unive rs surgery surgery 30 ity of 00:00: [place] [facility] Ileostomy Ileostomy Disease Active 2019-11 Overview: Univers care care 1-13 Formattin ity of 00:00: g of this [place] 00 note Medical might be Branch different from the original. Added automatic ally from request for surgery [id number] Acute Acute Disease Active 2019-11 Univers renal renal 1-11 ity of failure failure 00:00: [address] Renal Renal Disease Active 2020 Univers failure failure 1-11 ity of 00:00: [address] E44.0 E44.0 Disease Active 2019-11 Univers Moderate Moderate 1-11 ity of protein protein 00:00: [place] calorie calorie 00 Medical malnutriti malnutriti Br anch on on JULIAN (acute JULIAN (acute Disease Active 2019-11 U nivers kidney kidney 0-30 ity of injury) injury) 00:00: [place] 00 Medical Branch Abdominal Abdominal Disease Active 2019-11 Uni vers pain pain 0-21 ity of 00:00: [place] [facility] Abdominal Abdominal Disease Active 2019-11 Overview: Univers pain, pain, 0-20 Formattin ity of generalize generalize 00:00: g of this [place] d d 00 note Medical might be Branch different from the original. Added automatic ally from request for surgery [id number] SBO (small SBO (small Disease Active U nivers bowel bowel 07-24 ity of obstructio obstructio 00:00: [place] n[place] 00 Medical Branch Crohn's Crohn's Disease Active Overview: Univ ers disease of disease of 908 Formattin ity of colon with colon with 00:00: g of this [place] complicati complicati 00 note Me dical on on might be Branch different from the original. Added automatic ally from request for surgery [id number] Sinus Sinus Disease Active 2018-11 Univers tachycardi tachycardi 0-09 it y of a a 00:00: [place] [facility] Pneumonia Pneumonia Disease Active 2018-11 Uni vers 0-04 ity of 00:00: [place] [facility] Drug-seeki Drug-seeki Disease Active 2018- U nivers ng ng 4-26 ity of behavior behavior 00:00: [place] [facility] Multifocal Multifocal Disease Active 2017-0 U nivers pneumonia pneumonia 3-12 ity of 00:00: [place] [facility] Dehydratio Dehydratio Disease Active U nivers n n 2-21 ity of 00:00: [place] [facility] IBS IBS Disease Active 2010-11 Univers (irritable (irritable 1-18 it y of bowel bowel 00:00: [place] syndrome) syndrome) 00 [facility] Branch Depression Depression Disease Active 2010-11 U nivers 1-18 ity of 00:00: [place] 00 Medical Branch Allergies, Adverse Reactions, Alerts Allergy Allergy Status Severity Reaction(s) Onset Inactive Treating Comm ents Source Name Type Date Date Clinician fentanyl DA Active SV [facility] 2-26 Clear 00:00: [place] 00 [facility] fentanyl DA Active SV SOB/ 2020-0 [facility] 2-26 Clear 00:00: [place] 00 [facility] TRAMADOL DRUG Active ITCHING 2019-0 Univers INGREDI 9-15 ity of 00:00: [place] 00 Medical Branch Tramadol Propensi Active Swelling 2019-0 Univ ers ty to 9-15 ity of adverse 00:00: [place] reaction 00 Medical s Branch FENTANYL DRUG Active Hives 2017-0 Univers HCL INGREDI 2-20 ity of 00:00: [place] 00 Medical Branch Fentanyl Propensi Active Hives 2018-0 Univer s Hcl ty to 2-20 ity of adverse 00:00: [place] reaction 00 Medical s Branch metoclop DA Active OK HIVES 2017-0 [facility] ramide 2-19 Clear HCl 00:00: [place] 00 [facility] ketorola DA Active OK HIVES 2017-0 [facility] c 2-19 Clear trometha 00:00: [facility] 00 [facility] ondanset DA Active [place] HIVES 2017-0 [facility] sondra HCl 2-19 Clear 00:00: [place] 00 [facility] Sulfa DA Active [place] HIVES 2017-0 [facility] (Sulfona 2-19 Clear mide 00:00: [place] Antibiot 00 [facility] morphine DA Active U HIVES 2017-0 [facility] 2-19 Clear 00:00: [place] 00 [facility] codeine DA Active U HIVES 2017-0 [facility] 2-19 Clear 00:00: [place] 00 [facility] pentazoc DA Active U RASH 2017-0 [facility] ine 2-19 Clear 00:00: [place] 00 [facility] metoclop DA Active OK 2017-0 [facility] ramide 2-19 Clear HCl 00:00: [place] 00 [facility] ketorola DA Active OK 2017-0 [facility] c 2-19 Clear trometha 00:00: [place] 00 [facility] ondanset DA Active OK 2017-0 [facility] sondra HCl 2-19 Clear 00:00: [place] 00 [facility] Sulfa DA Active OK 2017-0 [facility] (Sulfona 2-19 Clear mide 00:00: [place] [facility] morphine DA Active U 2017-0 [facility] 2-19 Clear 00:00: [place] 00 [facility] codeine DA Active U 2017-0 [facility] 2-19 Clear 00:00: [place] 00 [facility] pentazoc DA Active U 2017-0 [facility] ine 2-19 Clear 00:00: [place] 00 [facility] MORPHINE DRUG Active Low Hives 2016-0 Univers INGREDI 5-10 ity of 00:00: [place] 00 Medical Branch Morphine Propensi Active Itching 2016-0 Reports Univ ers ty to 5-10 she ity of adverse 00:00: tolerates [place] reaction 00 Morphine Medica l s to with Branch drug benadryl Morphine Propensi Active Swelling 2016-0 Univ ers ty to 5-10 ity of adverse 00:00: [place] reaction 00 Medical s Branch DICYCLOM DRUG Active Hives 2015-0 Univers INE INGREDI 3-12 ity of 00:00: [place] 00 Medical Branch CAFFEINE DRUG Active Hives 2015-0 Univers INGREDI 3-12 ity of 00:00: [place] 00 Medical Branch PENTAZOC DRUG Active Hives 2015-0 Univers INE INGREDI 3-12 ity of LACTATE 00:00: [place] 00 Medical Branch KETOROLA DRUG Active Hives 2015-0 Univers C INGREDI 3-12 ity of TROMETHA 00:00: [place] MINE 00 Medical Branch Dicyclom Propensi Active Swelling 2016-0 Univ ers ine ty to 3-12 ity of adverse 00:00: [place] reaction 00 Medical s Branch Caffeine Propensi Active Swelling 2015-0 Univ ers ty to 3-12 ity of adverse 00:00: [place] reaction 00 Medical s Branch Pentazoc Propensi Active Swelling 2015-0 Univ ers ine ty to 3-12 ity of Lactate adverse 00:00: [place] reaction 00 Medical s Branch Ketorola Propensi Active Hives 2015-0 Univer s c ty to 3-12 ity of Trometha adverse 00:00: [place] mine reaction 00 Medical s Branch METOCLOP DRUG Active ITCHING 2010-11 Univers RAMIDE INGREDI 1-18 ity of HCL 00:00: [place] 00 Medical Branch SULFA Drug Active N/V 2010-11 Univers (SULFONA Class 1-18 ity of MIDE 00:00: [place] ANTIBIOT 00 Medical ICS) Branch ONDANSET DRUG Active ITCHING 2010-11 Univers SONDRA HCL 1-18 ity of (PF) 00:00: [place] 00 Medical Branch Metoclop Propensi Active Itching 2010-11 Unive rs ramide ty to 18 ity of Hcl adverse 00:00: [place] reaction 00 Medical s Branch Sulfa Propensi Active Nausea 2010-11 Univers (Sulfona ty to and/or 18 ity of mide adverse Vomiting 00:00: [place] Antibiot reaction 00 Medica l ics) s Branch Ondanset Propensi Active Itching 2010-11 Unive rs sondra Hcl ty to 18 ity of (Pf) adverse 00:00: [place] reaction 00 Medical s Branch Social History Social Habit Start Date Stop Date Quantity Comments Source Exposure to Not sure [facility] SARS-CoV-[address] [facility] (event) Branch Alcohol intake 2020-10-15 2020-10-15 Current [facility] 00:00:00 00:00:00 non-drinker of [facility] alcohol Gideon (finding) Tobacco use and 2020-09-16 2020-09-16 Never used Universit y of exposure 00:00:00 00:00:00 [facility] History SDOH 2020-07-24 2020-07-24 5 University o f Financial 00:00:00 00:00:00 [facility] Education 2020-07-24 2020-07-24 13 University 00:00:00 00:00:00 [facility] Tobacco Comment 2020-07-24 2020-07-24 2-3 Universit y of 00:00:00 00:00:00 cigerette/day [facility] Branch Sex [birth year] Universit y of 00:00:00 00:00:00 [facility] Smoking Status Start Date Stop Date Source Current every day 2020-09-16 00:00:00 [facility] smoker [facility] Former smoker 2019-08-23 00:00:00 2019-08-23 00:00:00 Universi ty of [facility] Medications Ordered Filled Start Stop Current Ordering Indication Dosage Frequency Signature Comments Components Source Medication Medication Date Date Medication? Clinician (SIG) Name Name Pantoprazol 2019-11 Yes 40mg Take 40 mg Univers e 2-17 by mouth 2 ity of (PROTONIX) 01:38: (two) [place] 40 mg 47 times Medical delayed-rel daily. Branch ease suspension Pantoprazol 2019-11 Yes 40mg Take 40 mg Univers e 2-17 by mouth 2 ity of (PROTONIX) 01:38: (two) [place] 40 mg 47 times Medical delayed-rel daily. Branch ease suspension Pantoprazol 2020-1 Yes 40mg Take 40 mg Univers e 2-17 by mouth 2 ity of (PROTONIX) 01:38: (two) [place] 40 mg 47 times Medical delayed-rel daily. Branch ease suspension Pantoprazol 2020-1 Yes 40mg Take 40 mg Univers e 2-17 by mouth 2 ity of (PROTONIX) 01:38: (two) [place] 40 mg 47 times Medical delayed-rel daily. Branch ease suspension Pantoprazol 2020-1 Yes 40mg Take 40 mg Univers e 2-17 by mouth 2 ity of (PROTONIX) 01:38: (two) [place] 40 mg 47 times Medical delayed-rel daily. Branch ease suspension Pantoprazol 2020-1 Yes 40mg Take 40 mg Univers e 2-17 by mouth 2 ity of (PROTONIX) 01:38: (two) [place] 40 mg 47 times Medical delayed-rel daily. Branch ease suspension Pantoprazol 2020-1 Yes 40mg Take 40 mg Univers e 2-17 by mouth 2 ity of (PROTONIX) 01:38: (two) [place] 40 mg 47 times Medical delayed-rel daily. Branch ease suspension Pantoprazol 2020-1 Yes 40mg Take 40 mg Univers e 2-17 by mouth 2 ity of (PROTONIX) 01:38: (two) [place] 40 mg 47 times Medical delayed-rel daily. Branch ease suspension Pantoprazol 2020-1 Yes 40mg Take 40 mg Univers e 2-17 by mouth 2 ity of (PROTONIX) 01:38: (two) [place] 40 mg 47 times Medical delayed-rel daily. Branch ease suspension Pantoprazol 2020-1 Yes 40mg Take 40 mg Univers e 2-17 by mouth 2 ity of (PROTONIX) 01:38: (two) [place] 40 mg 47 times Medical delayed-rel daily. Branch ease suspension Pantoprazol 2020-1 Yes 40mg Take 40 mg Univers e 2-16 by mouth 2 ity of (PROTONIX) 19:38: (two) [place] 40 mg 47 times Medical delayed-rel daily. Branch ease suspension Pantoprazol 2020-1 Yes 40mg Take 40 mg Univers e 2-16 by mouth 2 ity of (PROTONIX) 19:38: (two) [place] 40 mg 47 times Medical delayed-rel daily. Branch ease suspension HYDROmorpho 2019-2019- 1mg 1 mg, Slow Univers ne 2-16 12-16 IV Push, ity of (DILAUDID) 14:45: 14:18 ONCE, 1 [place] as injection 1 00 :00 dose, Wed Med ical mg 10/30/20 Branch at 0845, Routine
Use approved by (Faculty): GENERAL SURGERY
General surgeon approving: Kalee ALPRAZolam 2019- Yes 2mg 2 mg, Univer s (XANAX) 2-16 Oral, BID, ity of tablet 2 mg 02:00: First dose [place] 00 on [facility] Medical 10/29/20 Branch at 2000, Until Discontinu ed, Routine simethicone 2019- Yes [id number] 80mg Take 1 Univers 80 mg 2-16 tablet by ity of chewable 00:00: mouth at [place] tablet 00 bedtime as Medical needed for Branch Gas. ciprofloxac 2019- Yes [id number] 500mg Take 1 Univers in HCl 500 2-16 tablet by ity of mg tablet 00:00: mouth [place] 00 every 12 Medical (twelve) Branch hours. metroNIDAZO 2019- Yes [id number] 500mg Take 1 Univers LE 500 mg 2-16 tablet by ity o f tablet 00:00: mouth [place] 00 every 8 Medical (eight) Branch hours. metoprolol 2019- Yes [id number] 25mg Take 1 Un thor tartrate 25 2-16 tablet by ity of mg tablet 00:00: mouth 2 [place] 00 (two) Medical times Branch daily. ciprofloxac 2019-11 Yes 500mg 500 mg, Un thor in HCl 2-16 Oral, ity of (CIPRO) 00:00: Q12HA2, [place] tablet 500 00 First dose Med ical mg on Branch 10/29/20 at 1800, Until Discontinu ed, LUISA
Re ason for Anti-Infec tive: Empiric Therapy for Suspected Infection< br>Empiric Therapy Site: Skin / Soft tissue
Duration of therapy: 7 days simethicone 2019- Yes [id number] 80mg Take 1 Univers 80 mg 2-16 tablet by ity of chewable 00:00: mouth at [place] tablet 00 bedtime as Medical needed for Branch Gas. ciprofloxac 2019- Yes [id number] 500mg Take 1 Univers in HCl 500 2-16 tablet by ity of mg tablet 00:00: mouth [place] 00 every 12 Medical (twelve) Branch hours. metroNIDAZO 2019-1 Yes [id number] 500mg Take 1 Univers LE 500 mg 2-16 tablet by ity o f tablet 00:00: mouth [place] 00 every 8 Medical (eight) Branch hours. metoprolol 2019- Yes [id number] 25mg Take 1 Un thor tartrate 25 2-16 tablet by ity of mg tablet 00:00: mouth 2 [place] 00 (two) Medical times Branch daily. simethicone 2019- Yes [id number] 80mg Take 1 Univers 80 mg 2-16 tablet by ity of chewable 00:00: mouth at [place] tablet 00 bedtime as Medical needed for Branch Gas. ciprofloxac 2019- Yes [id number] 500mg Take 1 Univers in HCl 500 2-16 tablet by ity of mg tablet 00:00: mouth [place] 00 every 12 Medical (twelve) Branch hours. metroNIDAZO 2019- Yes [id number] 500mg Take 1 Univers LE 500 mg 2-16 tablet by ity o f tablet 00:00: mouth [place] 00 every 8 Medical (eight) Branch hours. metoprolol 2019- Yes [id number] 25mg Take 1 Un thor tartrate 25 2-16 tablet by ity of mg tablet 00:00: mouth 2 [place] 00 (two) Medical times Branch daily. simethicone 2019- Yes [id number] 80mg Take 1 Univers 80 mg 2-16 tablet by ity of chewable 00:00: mouth at [place] tablet 00 bedtime as Medical needed for Branch Gas. ciprofloxac 2019- Yes [id number] 500mg Take 1 Univers in HCl 500 2-16 tablet by ity of mg tablet 00:00: mouth [place] 00 every 12 Medical (twelve) Branch hours. metroNIDAZO 2019- Yes [id number] 500mg Take 1 Univers LE 500 mg 2-16 tablet by ity o f tablet 00:00: mouth [place] 00 every 8 Medical (eight) Branch hours. metoprolol 2019- Yes [id number] 25mg Take 1 Un thor tartrate 25 2-16 tablet by ity of mg tablet 00:00: mouth 2 [place] 00 (two) Medical times Branch daily. simethicone 2020- Yes [id number] 80mg Take 1 Univers 80 mg 2-16 tablet by ity of chewable 00:00: mouth at [place] tablet 00 bedtime as Medical needed for Branch Gas. ciprofloxac 2019- Yes [id number] 500mg Take 1 Univers in HCl 500 2-16 tablet by ity of mg tablet 00:00: mouth [place] 00 every 12 Medical (twelve) Branch hours. metroNIDAZO 2019- Yes [id number] 500mg Take 1 Univers LE 500 mg 2-16 tablet by ity o f tablet 00:00: mouth [place] 00 every 8 Medical (eight) Branch hours. metoprolol 2019-11 Yes [id number] 25mg Take 1 Un thor tartrate 25 2-16 tablet by ity of mg tablet 00:00: mouth 2 [place] 00 (two) Medical times Branch daily. simethicone 2019- Yes [id number] 80mg Take 1 Univers 80 mg 2-16 tablet by ity of chewable 00:00: mouth at [place] tablet 00 bedtime as Medical needed for Branch Gas. ciprofloxac 2019- Yes [id number] 500mg Take 1 Univers in HCl 500 2-16 tablet by ity of mg tablet 00:00: mouth [place] 00 every 12 Medical (twelve) Branch hours. metroNIDAZO 2019- Yes [id number] 500mg Take 1 Univers LE 500 mg 2-16 tablet by ity o f tablet 00:00: mouth [place] 00 every 8 Medical (eight) Branch hours. metoprolol 2019- Yes [id number] 25mg Take 1 Un thor tartrate 25 2-16 tablet by ity of mg tablet 00:00: mouth 2 [place] 00 (two) Medical times Branch daily. simethicone 2019- Yes [id number] 80mg Take 1 Univers 80 mg 2-16 tablet by ity of chewable 00:00: mouth at [place] tablet 00 bedtime as Medical needed for Branch Gas. ciprofloxac 2019- Yes [id number] 500mg Take 1 Univers in HCl 500 2-16 tablet by ity of mg tablet 00:00: mouth [place] 00 every 12 Medical (twelve) Branch hours. metroNIDAZO 2019- Yes [id number] 500mg Take 1 Univers LE 500 mg 2-16 tablet by ity o f tablet 00:00: mouth [place] 00 every 8 Medical (eight) Branch hours. metoprolol 2020- Yes [id number] 25mg Take 1 Un thor tartrate 25 2-16 tablet by ity of mg tablet 00:00: mouth 2 [place] 00 (two) Medical times Branch daily. simethicone 2020-1 Yes [id number] 80mg Take 1 Univers 80 mg 2-16 tablet by ity of chewable 00:00: mouth at [place] tablet 00 bedtime as Medical needed for Branch Gas. ciprofloxac 2019- Yes [id number] 500mg Take 1 Univers in HCl 500 2-16 tablet by ity of mg tablet 00:00: mouth [place] 00 every 12 Medical (twelve) Branch hours. metroNIDAZO 2019- Yes [id number] 500mg Take 1 Univers LE 500 mg 2-16 tablet by ity o f tablet 00:00: mouth [place] 00 every 8 Medical (eight) Branch hours. metoprolol 2019- Yes [id number] 25mg Take 1 Un thor tartrate 25 2-16 tablet by ity of mg tablet 00:00: mouth 2 [place] 00 (two) Medical times Branch daily. simethicone 2019- Yes [id number] 80mg Take 1 Univers 80 mg 2-16 tablet by ity of chewable 00:00: mouth at [place] tablet 00 bedtime as Medical needed for Branch Gas. ciprofloxac 2019- Yes [id number] 500mg Take 1 Univers in HCl 500 2-16 tablet by ity of mg tablet 00:00: mouth [place] 00 every 12 Medical (twelve) Branch hours. metroNIDAZO 2019-1 Yes [id number] 500mg Take 1 Univers LE 500 mg 2-16 tablet by ity o f tablet 00:00: mouth [place] 00 every 8 Medical (eight) Branch hours. metoprolol 2019- Yes [id number] 25mg Take 1 Un thor tartrate 25 2-16 tablet by ity of mg tablet 00:00: mouth 2 [place] 00 (two) Medical times Branch daily. simethicone 2019-1 Yes [id number] 80mg Take 1 Univers 80 mg 2-16 tablet by ity of chewable 00:00: mouth at [place] tablet 00 bedtime as Medical needed for Branch Gas. ciprofloxac 2019- Yes [id number] 500mg Take 1 Univers in HCl 500 2-16 tablet by ity of mg tablet 00:00: mouth [place] 00 every 12 Medical (twelve) Branch hours. metroNIDAZO 2019- Yes [id number] 500mg Take 1 Univers LE 500 mg 2-16 tablet by ity o f tablet 00:00: mouth [place] 00 every 8 Medical (eight) Branch hours. metoprolol 2019-11 Yes [id number] 25mg Take 1 Un thor tartrate 25 2-16 tablet by ity of mg tablet 00:00: mouth 2 [place] 00 (two) Medical times Branch daily. simethicone 2019-11 Yes [id number] 80mg Take 1 Univers 80 mg 2-16 tablet by ity of chewable 00:00: mouth at [place] tablet 00 bedtime as Medical needed for Branch Gas. ciprofloxac 2019-11 Yes [id number] 500mg Take 1 Univers in HCl 500 2-16 tablet by ity of mg tablet 00:00: mouth [place] 00 every 12 Medical (twelve) Branch hours. metroNIDAZO 2019-11 Yes [id number] 500mg Take 1 Univers LE 500 mg 2-16 tablet by ity o f tablet 00:00: mouth [place] 00 every 8 Medical (eight) Branch hours. metoprolol 2019-11 Yes [id number] 25mg Take 1 Un thor tartrate 25 2-16 tablet by ity of mg tablet 00:00: mouth 2 [place] 00 (two) Medical times Branch daily. simethicone 2019-11 Yes [id number] 80mg Take 1 Univers 80 mg 2-16 tablet by ity of chewable 00:00: mouth at [place] tablet 00 bedtime as Medical needed for Branch Gas. ciprofloxac 2019-11 Yes [id number] 500mg Take 1 Univers in HCl 500 2-16 tablet by ity of mg tablet 00:00: mouth [place] 00 every 12 Medical (twelve) Branch hours. metroNIDAZO 2019-11 Yes [id number] 500mg Take 1 Univers LE 500 mg 2-16 tablet by ity o f tablet 00:00: mouth [place] 00 every 8 Medical (eight) Branch hours. metoprolol 2019-11 Yes [id number] 25mg Take 1 Un thor tartrate 25 2-16 tablet by ity of mg tablet 00:00: mouth 2 [place] 00 (two) Medical times Branch daily. ibuprofen 2019-11 2020- No [id number] 800mg Take 1 Univers 800 mg 2-16 12-31 tablet by ity of tablet 00:00: 05:59 mouth [place] 00 :00 every 6 Medical (six) Branch hours as needed for Pain (scale 1-3) for up to 14 days. proMETHazin 2019- 2020- No [id number] 25mg Take 1 Univers e 25 mg 2-16 12-31 tablet by ity of tablet 00:00: 05:59 mouth [place] 00 :00 every 8 Medical (eight) Branch hours as needed for Nausea and Vomiting (N/V) for up to 14 days. ibuprofen 2019-11- No [id number] 800mg Take 1 Univers 800 mg 2-16 12-31 tablet by ity of tablet 00:00: 05:59 mouth [place] 00 :00 every 6 Medical (six) Branch hours as needed for Pain (scale 1-3) for up to 14 days. proMETHazin 2019-11- No [id number] 25mg Take 1 Univers e 25 mg 2-16 12-31 tablet by ity of tablet 00:00: 05:59 mouth [place] 00 :00 every 8 Medical (eight) Branch hours as needed for Nausea and Vomiting (N/V) for up to 14 days. ibuprofen 2019-11- No [id number] 800mg Take 1 Univers 800 mg 2-16 12-31 tablet by ity of tablet 00:00: 05:59 mouth [place] 00 :00 every 6 Medical (six) Branch hours as needed for Pain (scale 1-3) for up to 14 days. proMETHazin 2019-11- No [id number] 25mg Take 1 Univers e 25 mg 2-16 12-31 tablet by ity of tablet 00:00: 05:59 mouth [place] 00 :00 every 8 Medical (eight) Branch hours as needed for Nausea and Vomiting (N/V) for up to 14 days. ibuprofen 2019-11- No [id number] 800mg Take 1 Univers 800 mg 2-16 12-31 tablet by ity of tablet 00:00: 05:59 mouth [place] 00 :00 every 6 Medical (six) Branch hours as needed for Pain (scale 1-3) for up to 14 days. proMETHazin 2019- 2020- No [id number] 25mg Take 1 Univers e 25 mg 2-16 12-31 tablet by ity of tablet 00:00: 05:59 mouth [place] 00 :00 every 8 Medical (eight) Branch hours as needed for Nausea and Vomiting (N/V) for up to 14 days. ibuprofen 2019-11- No [id number] 800mg Take 1 Univers 800 mg 2-16 12-31 tablet by ity of tablet 00:00: 05:59 mouth [place] 00 :00 every 6 Medical (six) Branch hours as needed for Pain (scale 1-3) for up to 14 days. proMETHazin 2019-11- No [id number] 25mg Take 1 Univers e 25 mg 2-16 12-31 tablet by ity of tablet 00:00: 05:59 mouth [place] 00 :00 every 8 Medical (eight) Branch hours as needed for Nausea and Vomiting (N/V) for up to 14 days. ibuprofen 2019-11- No [id number] 800mg Take 1 Univers 800 mg 2-16 12-31 tablet by ity of tablet 00:00: 05:59 mouth [place] 00 :00 every 6 Medical (six) Branch hours as needed for Pain (scale 1-3) for up to 14 days. proMETHazin 2019-11- No [id number] 25mg Take 1 Univers e 25 mg 2-16 12-31 tablet by ity of tablet 00:00: 05:59 mouth [place] 00 :00 every 8 Medical (eight) Branch hours as needed for Nausea and Vomiting (N/V) for up to 14 days. ibuprofen 2019-11- No [id number] 800mg Take 1 Univers 800 mg 2-16 12-31 tablet by ity of tablet 00:00: 05:59 mouth [place] 00 :00 every 6 Medical (six) Branch hours as needed for Pain (scale 1-3) for up to 14 days. proMETHazin 2019-11- No [id number] 25mg Take 1 Univers e 25 mg 2-16 12-31 tablet by ity of tablet 00:00: 05:59 mouth [place] 00 :00 every 8 Medical (eight) Branch hours as needed for Nausea and Vomiting (N/V) for up to 14 days. ALPRAZolam 2019-11- No [id number] 2mg Take 1 Univers 2 mg tablet 2-16 12-24 tablet by it y of 00:00: 05:59 mouth 2 [place] 00 :00 (two) Medical times Branch daily for 7 days. HYDROcodone 2019-11- No [id number]{tbl} Take 1 U nivers -acetaminop 2-16 12-24 tablet by it y of hen ([employer]) 00:00: 05:59 mouth [place] 10-325 mg 00 :00 every 6 Medical tablet (six) Branch hours as needed for Pain (scale 7-10) for up to 7 days. Indication s: acute pain ALPRAZolam 2019-2019- No [id number] 2mg Take 1 Univers 2 mg tablet 2-16 12-24 tablet by it y of 00:00: 05:59 mouth 2 [place] 00 :00 (two) Medical times Branch daily for 7 days. HYDROcodone 2019-11 No [id number] 1{tbl} Take 1 U nivers -acetaminop 2-16 12-24 tablet by it y of hen ([employer]) 00:00: 05:59 mouth [place] 10-325 mg 00 :00 every 6 Medical tablet (six) Branch hours as needed for Pain (scale 7-10) for up to 7 days. Indication s: acute pain ALPRAZolam 2019- No [id number] 2mg Take 1 [facility] 2 mg tablet 2-16 12-24 tablet by it y of 00:00: 05:59 mouth 2 [place] 00 :00 (two) Medical times Branch daily for 7 days. HYDROcodone 2019-11 No [id number] 1{tbl} Take 1 U nivers -acetaminop 2-16 12-24 tablet by it y of hen ([employer]) 00:00: 05:59 mouth [place] 10-325 mg 00 :00 every 6 Medical tablet (six) Branch hours as needed for Pain (scale 7-10) for up to 7 days. Indication s: acute pain ALPRAZolam 2019-2019- No [id number] 2mg Take 1 [facility] 2 mg tablet 2-16 12-24 tablet by it y of 00:00: 05:59 mouth 2 [place] 00 :00 (two) Medical times Branch daily for 7 days. HYDROcodone 2019-11 No [id number] 1{tbl} Take 1 U nivers -acetaminop 2-16 12-24 tablet by it y of hen ([employer]) 00:00: 05:59 mouth [place] 10-325 mg 00 :00 every 6 Medical tablet (six) Branch hours as needed for Pain (scale 7-10) for up to 7 days. Indication s: acute pain ciprofloxac 2019- 2020- No [id number] 500mg Take 1 Univers in HCl 500 2-16 12-16 tablet by ity of mg tablet 00:00: 00:00 mouth [place] 00 :00 every 12 Medical (twelve) Branch hours for 14 days. metroNIDAZO 2019-2019- No [id number] 500mg Take 1 Univers LE 500 mg 2-16 12-16 tablet by ity of tablet 00:00: 00:00 mouth [place] 00 :00 every 8 Medical (eight) Branch hours for 14 days. ciprofloxac 2019-2019- No [id number] 500mg Take 1 Univers in HCl 500 2-16 12-16 tablet by ity of mg tablet 00:00: 00:00 mouth [place] 00 :00 every 12 Medical (twelve) Branch hours. metroNIDAZO 2019-2019- No [id number] 500mg Take 1 Univers LE 500 mg 2-16 12-16 tablet by ity of tablet 00:00: 00:00 mouth [place] 00 :00 every 8 Medical (eight) Branch hours. metoprolol 2019-11- No [id number] 25mg Take 1 U nivers tartrate 25 2-16 12-16 tablet by it y of mg tablet 00:00: 00:00 mouth 2 [place] 00 :00 (two) Medical times Branch daily. metroNIDAZO 2019-11 Yes 500mg 500 mg, Un thor LE (FLAGYL) 2-15 Oral, Q8H, it y of tablet 500 20:00: First dose [place] mg 00 on [facility] 10/29/20 Branch at 1400, Until Discontinu ed, Routine
Reason for Anti-Infec tive: Empiric Therapy for Suspected Infection< br>Empiric Therapy Site: Abdominal& lt;br>Dura tion of therapy: 7 days magnesium 2019-11 2020- No 2g 2 g, IV Univ ers sulfate in 2-15 12-15 Piggyback, it y of water 2 17:45: 18:42 ONCE, 1 [place] gram/50 mL 00 :00 dose, [facility] ryann (4 %) 10/29/20 Branch infusion 2 at 1145, g Routine HYDROmorpho 2019-11 Yes 2mg 2 mg, Unive rs ne 2-15 Oral, ity of (DILAUDID) 15:19: Q4HPRN, [place] tablet 2 mg 37 Starting Medi ryann [facility] 10/29/20 at 0919, Until Discontinu ed, Routine, Pain (scale 7-10) KCL 20 2019-11 Yes 40meq 40 mEq, Univers mEq/15 mL 2-15 Oral, ity of solution 40 15:00: DAILY, [place] mEq 00 First dose Medical on [facility] 10/29/20 at 0900, Until Discontinu ed, Routine HYDROmorpho 2019-11- No .5mg 0.5 mg, Un thor ne 2-15 12-15 Slow IV ity of (DILAUDID) 07:37: 14:36 Push, [place] injection 39 :49 Q4HPRN, Medical 0.5 mg Starting Branch [facility] 10/29/20 at 0137, Until 10/29/20 at 0836, Routine, Pain (scale 7-10)
U se approved by (Faculty): GENERAL SURGERY
General surgeon approving: Phatak KCL 2019-11- No 40meq 40 mEq, Univers (KLOR-CON - 12-15 Oral, ity of M20) tablet 15:00: 13:15 DAILY, [place] 40 mEq 00 :49 First dose Medical on [facility] 10/28/20 at 0900, Until Discontinu ed, Routine KCL 2019-11- No 20meq 20 mEq, Univers (KLOR-CON 2-14 12-14 Oral, ity of M20) tablet 07:45: 06:54 ONCE, 1 [place] 20 mEq 00 :00 dose, [facility] 10/28/20 Branch at 0145, Routine magnesium 2019-11- No 2g 2 g, IV Univ ers sulfate in 12-28-14 Piggyback, it y of water 2 18:30: 00:58 ONCE, 1 [place] gram/50 mL 00 :00 dose, Sun Medi ryann (4 %) 10/27/20 Branch infusion 2 at 1230, g Routine KCL 2019-11- No 40meq 40 mEq, Univers (POTASSIUM -27 10-14 Intravenou it y of CHLORIDE) 18:30: 07:20 s, [place] 40 mEq in 00 :00 Administer Medi ryann NaCl 0.9% over 4 Branch (NS) 250 mL Hours, ONCE, 1 dose, 10/27/20 at 1230, Routine HYDROmorpho 2019-11- No .5mg 0.5 mg, Un thor ne 12-28 Slow IV ity of (DILAUDID) 05:46: 05:45 Push, [place] injection 42 :42 Q4HPRN, Medical 0.5 mg Starting Branch 10/26/20 at 2346, Until 10/28/20 at 2345, Routine, Pain (scale 7-10)
U se approved by (Faculty): GENERAL SURGERY
General surgeon approving: phatak NaCl 0.9% 2019-11 Yes 10mL 10 mL, Univer s (NS) 12-27 Slow IV ity of injection 15:39: Push, PRN, [place] 10 mL 14 Starting Medical Sat Branch 10/26/20 at 0939, Until Discontinu ed, Routine, line maintenanc e magnesium 2019-11- No 400mg 400 mg, Uni vers oxide 12-27 Oral, ity of (MAG-OX 04:47: 05:03 ONCE, 1 [place] 400) tablet 00 :00 dose, Fri Med ical 400 mg 10/25/20 Branch at 2300, LUISA KCL 2019-11- No 40meq 40 mEq, Univers (KLOR-CON 12-27 Oral, ity of M20) tablet 04:46: 05:03 ONCE, 1 [place] 40 mEq 00 :00 dose, Fri Medical 10/25/20 Branch at 2300, STAT HYDROcodone 2019-11 Yes 10mg 10 mg, Univ ers -acetaminop 2-11 Oral, Q6H, it y of hen (HYCET) 18:00: First dose [place] 7.5-325 00 on Fri Medical mg/15 mL 10/25/20 Branch solution 10 at 1200, mg Until Discontinu ed, Routine enoxaparin 2019-11 Yes 40mg 40 mg, Unive rs (LOVENOX) 2-11 Subcutaneo ity of injection 15:00: us, DAILY, [place] 40 mg 00 First dose Medical on Fri Branch 10/25/20 at 0900, Until Discontinu ed, Routine metroNIDAZO 2020-1 2020- No 500mg 500 mg, IV Univers LE in NaCl 12-2615 Infusion, ity of (iso-os) 02:30: 15:20 Q8H ABX, [place] (FLAGYL 00 :14 First dose Medica l I.V.) RTU on [facility] Branch IV infusion 10/24/20 500 mg at 2030, Until Discontinu ed, 100 mL
R bonnie for Anti-Infec tive: Empiric Non-Surgic al Prophylaxi s
Durat ion of therapy: 7 days ciprofloxac 2019-11 No 400mg 400 mg, IV Univers in in 5 % 12-2615 Piggyback, ity of dextrose 02:30: 15:20 Administer [place] (CIPRO) 00 :14 over 60 Medical piggyback Minutes, Branch 400 mg Q12H ABX, First dose on [facility] 10/24/20 at 2030, Until Discontinu ed, LUISA
Re ason for Anti-Infec tive: Empiric Non-Surgic al Prophylaxi s
Durat ion of therapy: 7 days diphenhydrA 2019-11 Yes 12.5mg 12.5 mg, Univers MINE 2-11 Oral, BID, ity of (BENADRYL) 02:00: First dose [place] 12.5 mg/5 00 on [facility] Medical mL solution 10/24/20 Bran ch 12.5 mg at 1999, Until Discontinu ed, Routine metoprolol 2019-11 Yes 25mg 25 mg, Unive rs tartrate 2-11 Oral, BID, ity o f (LOPRESSOR) 02:00: First dose [place] tablet 25 00 on [facility] Medical mg 10/24/20 Branch at 2000, Until Discontinu ed, Routine lactated 2019-11 2020- No 1000mL at 100 Univ ers ringers IV 12-26 12-15 mL/hr, ity of infusion 00:45: 16:45 1,000 mL, [place] 1,000 mL 00 :57 IV Medical Infusion, Branch CONTINUOUS , Starting [facility] 10/24/20 at 1845, Until 10/29/20 at 1045, Routine HYDROmorpho 2019-11- No .5mg 0.5 mg, Un thor ne 2-11 12-13 Slow IV ity of (DILAUDID) 00:32: 00:31 Push, [place] injection 01 :01 Q4HPRN, Medical 0.5 mg Starting Branch [facility] 10/24/20 at 1832, Until 10/26/20 at 1831, Routine, Pain (scale 7-10)
U se approved by (Faculty): GENERAL SURGERY
General surgeon approving: kalee proMETHazin 2019-11- No 12.5mg 12.5 mg, Univers e 2-10 12-10 IV ity of (PHENERGAN) 20:34: 22:28 Piggyback, [place] 12.5 mg in 00 :00 ONCE, 1 Medica l NaCl 0.9% dose, [facility] Branc h (NS) 50 mL 10/24/20 IV at 1445, piggyback Routine Pantoprazol 2019-11 Yes 40mg Take 40 mg Univers e 2-05 by mouth 2 ity of (PROTONIX) 21:50: (two) [place] 40 mg 57 times Medical delayed-rel daily. Branch ease suspension Pantoprazol 2019-11 Yes 40mg Take 40 mg Univers e 2-05 by mouth 2 ity of (PROTONIX) 21:50: (two) [place] 40 mg 57 times Medical delayed-rel daily. Branch ease suspension ALPRAZolam 2019-11- No 2mg Take 2 mg U nivers (XANAX) 2 2-05 12-05 by mouth 2 ity of mg tablet 17:18: 00:00 (two) [place] 37 :00 times Medical daily. Branch simethicone 2019-11 Yes 80mg 80 mg, Univ ers (GAS RELIEF 2-05 Oral, ity of (SIMETHICON 15:00: PC+HS, [place] E)) 00 First dose Medical chewable on Sat Branch tablet 80 10/19/20 at mg 0900, Until Discontinu ed, Routine acetaminoph 2019-11 Yes 325mg 325 mg, Un thor en 2-05 Oral, Q8H, ity of (TYLENOL) 04:00: First dose [place] 160 mg/5 mL 00 (after Medica l liquid 325 last Branch mg modificati on) on Wed10/18/20 at 2200, Until Discontinu ed, Routine HYDROcodone 2019-11 Yes 10mg 10 mg, Univ ers -acetaminop 2-05 Oral, Q4H, it y of hen (HYCET) 02:00: First dose [place] 7.5-325 00 on Fri Medical mg/15 mL 10/18/20 at [facility] h solution 10 2000, mg Until Discontinu ed, Routine HYDROcodone 2019-11 Yes [id number] 1{tbl} Take 1 Un thor -acetaminop 2-05 tablet by ity of hen (NORCO) 00:00: mouth [place] 10-325 mg 00 every 6 Medical tablet (six) Branch hours as needed for Pain (scale 7-10). Indication s: acute pain ibuprofen 2019-11 Yes [id number] 600mg Take 1 U nivers 600 mg 2-05 tablet by ity of tablet 00:00: mouth [place] 00 every 6 Medical (six) Branch hours as needed for Pain (scale 1-3). proMETHazin 2019-11 Yes [id number] 25mg Take 1 Univers e 25 mg 2-05 tablet by ity of tablet 00:00: mouth [place] 00 every 8 Medical (eight) Branch hours as needed for Nausea and Vomiting (N/V). HYDROcodone 2019-11 Yes [id number] 1{tbl} Take 1 Un thor -acetaminop 2-05 tablet by ity of hen (NORCO) 00:00: mouth [place] 10-325 mg 00 every 6 Medical tablet (six) Branch hours as needed for Pain (scale 7-10). Indication s: acute pain ibuprofen 2019-11 Yes [id number] 600mg Take 1 U nivers 600 mg 2-05 tablet by ity of tablet 00:00: mouth [place] 00 every 6 Medical (six) Branch hours as needed for Pain (scale 1-3). proMETHazin 2019-11 Yes [id number] 25mg Take 1 Univers e 25 mg 2-05 tablet by ity of tablet 00:00: mouth [place] 00 every 8 Medical (eight) Branch hours as needed for Nausea and Vomiting (N/V). gabapentin 2019-11- No [id number] 300mg Take 1 Univers 300 mg 2-05 12-20 capsule by ity of capsule 00:00: 05:59 mouth 3 [place] 00 :00 (three) Medical times Branch daily for 14 days. gabapentin 2019-11- No [id number] 300mg Take 1 Univers 300 mg 2-05 12-20 capsule by ity of capsule 00:00: 05:59 mouth 3 [place] 00 :00 (three) Medical times Branch daily for 14 days. HYDROcodone 2019-11 2020- No [id number] 1{tbl} Take 1 U nivers -acetaminop 2-05 12-16 tablet by it y of hen (NORCO) 00:00: 00:00 mouth [place] 10-325 mg 00 :00 every 6 Medical tablet (six) Branch hours as needed for Pain (scale 7-10). Indication s: acute pain ALPRAZolam 2019-11- No [id number] 2mg Take 1 Univers 2 mg tablet 2-05 12-13 tablet by it y of 00:00: 05:59 mouth 2 [place] 00 :00 (two) Medical times Branch daily for 7 days. ALPRAZolam 2019-11 2020- No [id number] 2mg Take 1 Univers 2 mg tablet 2-05 12-13 tablet by it y of 00:00: 05:59 mouth 2 [place] 00 :00 (two) Medical times Branch daily for 7 days. simethicone 2019- 2020- No [id number] 80mg Take 1 Univers 80 mg 2-05 12-11 tablet by ity of chewable 00:00: 05:59 mouth [place] tablet 00 :00 after Medical meals and Branch at bedtime for 5 days. simethicone 2019- 2020- No [id number] 80mg Take 1 Univers 80 mg 2-05 12-11 tablet by ity of chewable 00:00: 05:59 mouth [place] tablet 00 :00 after Medical meals and Branch at bedtime for 5 days. ibuprofen 2019-11 2020- No [id number] 600mg Take 1 Univers 600 mg 2-05 12-10 tablet by ity of tablet 00:00: 00:00 mouth [place] 00 :00 every 6 Medical (six) Branch hours as needed for Pain (scale 1-3). simethicone 2019- 2020- No [id number] 80mg Take 1 Univers 80 mg 2-05 12-10 tablet by ity of chewable 00:00: 00:00 mouth [place] tablet 00 :00 after Medical meals and Branch at bedtime for 5 days. gabapentin 2019-11 2020- No [id number] 300mg Take 1 Univers 300 mg 2-05 12-10 capsule by ity of capsule 00:00: 00:00 mouth 3 [place] 00 :00 (three) Medical times Branch daily for 14 days. ALPRAZolam 2019-11- No [id number] 2mg Take 1 Univers 2 mg tablet 12-20-10 tablet by it y of 00:00: 00:00 mouth 2 [place] 00 :00 (two) Medical [facility] daily for 7 days. proMETHazin 2019-11- No [id number] 25mg Take 1 Univers e 25 mg 2- 12-10 tablet by ity of tablet 00:00: 00:00 mouth [place] 00 :00 every 8 Medical (eight) Branch hours as needed for Nausea and Vomiting (N/V). proMETHazin 2019-11- No [id number] 25mg Take 1 Univers e 25 mg -03 26-05 tablet by ity of tablet 00:00: 00:00 mouth [place] 00 :00 every 4 Medical (four) Branch hours as needed for Nausea and Vomiting (N/V) for up to 7 days. HYDROmorpho 2019-11 Yes 1mg 1 mg, Slow Univers ne 2-04 IV Push, ity of (DILAUDID) 02:56: Q6HPRN, [place] injection 1 33 Starting Medi ryann mg [facility] 10/17/20 at 205, Until Discontinu ed, Routine, Pain (scale 7-10)
U se approved by (Faculty): GENERAL SURGERY
General surgeon approving: Darren Clark ALPRAZolam 2019-11 Yes .25mg 0.25 mg, Un thor (XANAX) 2-04 Oral, BID, ity of tablet 0.25 02:00: First dose [place] mg 00 on [facility] 10/17/20 at Branch 2000, Until Discontinu ed, Routine HYDROcodone 2019-11- No 5mg 5 mg, Univ ers -acetaminop 2 12-04 Oral, Q4H, i ty of hen (HYCET) 22:00: 22:24 First dose [place] 7.5-325 00 :22 (after Medical mg/15 mL last Branch solution 5 modificati mg on) on [facility] 10/17/20 at 1600, Until Discontinu ed, Routine bisacodyL 2019-11 Yes 10mg 10 mg, Univer s (DULCOLAX) 2-03 Rectal, ity of suppository 03:00: QHSPRN, [place] 10 mg 00 Starting Medical [facility] 10/16/20 at 2100, Until Discontinu ed, Routine, Constipati on traZODone 2019-11 2020- No 50mg 50 mg, Unive rs (COMPOUNDED 12-18 Oral, QHS, i ty of ) oral 03:00: 19:57 First dose [place] suspension 00 :34 on Wed [facility] 50 mg 10/16/20 at Branch 2100, Until Discontinu ed, Routine methocarbam 2019-11 Yes 1000mg 1,000 mg, Univers oL 12-17 Intravenou ity of (ROBAXIN) 20:00: s, Q8H, [place] injection 00 First dose Medi ryann 1,000 mg on Wed [facility] 10/16/20 at 1400, Until Discontinu ed, Routine ibuprofen 2019-11 Yes 600mg 600 mg, Univ ers (IBU) 12-17 Oral, Q6H, ity of tablet 600 18:00: First dose [place] mg 00 (after Medical last Branch modificati on) on Wed10/16/20 at 1200, Until Discontinu ed, Routine acetaminoph 2019-11- No 500mg 500 mg, U nivers en 12-17 Oral, Q6H, ity of (TYLENOL) 18:00: 22:24 First dose [place] 160 mg/5 mL 00 :23 (after Medica l liquid 500 last Branch mg modificati on) on [facility] 10/16/20 at 1200, Until Discontinu ed, Routine bisacodyL 2019-11 2020- No 10mg 10 mg, Unive rs (DULCOLAX) 12-17 Rectal, ity o f suppository 15:45: 14:55 ONCE, 1 [place] 10 mg 00 :00 dose, [facility] 10/16/20 at Branch 0945, Routine melatonin 2019-11 Yes 3mg 3 mg, Univers (MELATIN) 12-17 Oral, QHS, ity of tablet 3 mg 03:00: First dose [place] 00 on Wed [facility] 10/15/20 at Branch 2100, Until Discontinu ed, Routine acetaminoph 2019-11 2020- No 650mg 650 mg, U nivers en 12-16 Oral, Q8H, ity of (TYLENOL) 20:00: 14:59 First dose [place] 160 mg/5 mL 00 :29 on Wed Medica l liquid 650 10/15/20 at [facility] nc mg 1400, Until Discontinu ed, Routine HYDROcodone 2019-11- No 5mg 5 mg, Univ ers -acetaminop 12-16 Oral, Q6H, i ty of hen (HYCET) 18:00: 19:51 First dose [place] 7.5-325 00 :24 (after Medical mg/15 mL last Branch solution 5 modificati mg on) on [facility] 10/15/20 at 1200, Until Discontinu ed, Routine HYDROMORPHO 2019-11- No Unive rs NE [employer] 12-16 ity of 6MG/30ML 17:00: 14:57 [place] 00 :48 Medical Branch NaCl 0.9% 2019-11 Yes 10mL 10 mL, Univer s (NS) 12-16 Slow IV ity of injection 16:51: Push, PRN, [place] 10 mL 43 Starting Medical [facility] 10/15/20 at 1051, Until Discontinu ed, Routine, line maintenanc e enoxaparin 2019-11 Yes 40mg 40 mg, Unive rs (LOVENOX) 12-16 Subcutaneo ity of injection 15:00: us, Q24H, [place] 40 mg 00 First dose Medical on [facility] 10/15/20 at 0900, Until Discontinu ed, Routine sennosides 2019-11- No 8.6mg 8.6 mg, Un tohr (SENOKOT) 12-16 Oral, ity of tablet 8.6 15:00: 19:51 DAILY, [place] mg 00 :23 First dose Medical on [facility] 10/15/20 at 0900, Until Discontinu ed, Routine docusate 2019-11- No 100mg 100 mg, Univ ers (COLACE) 12-16 Oral, ity of capsule 100 15:00: 19:51 DAILY, [place] mg 00 :23 First dose Medical on [facility] 10/15/20 at 0900, Until Discontinu ed, Routine HYDROcodone 2019-11- No 5mg 5 mg, Univ ers -acetaminop 12-16 Oral, ity of hen (HYCET) 14:06: 16:54 Q6HPRN, [place] 7.5-325 01 :51 Starting Medical mg/15 mL Tue Branch solution 5 10/15/20 at mg 0806, Until 10/15/20 at 1054, Routine, Pain (scale 4-6) proMETHazin 2019-11 Yes 25mg 25 mg, IV U nivers e 12-16 Piggyback, ity of (PHENERGAN) 03:57: Q8HPRN, [place] 25 mg in 05 Starting Medical NaCl 0.9% [facility] Branch (NS) 50 mL 10/14/20 IV at 7, piggyback Until Discontinu ed, Routine, Nausea and Vomiting (N/V) HYDROMORPHO 2019-11 2020- No Unive rs NE [employer] 12-16 ity of 6MG/30ML 03:00: 16:54 [place] 00 :51 Medical Branch pantoprazol 2019-11 Yes 40mg 40 mg, Univ ers e 12-16 Oral, BID, ity of (PROTONIX) 02:00: First dose [place] EC tablet 00 on [facility] Medical 40 mg 10/14/20 Branch at 1999, Until Discontinu ed, Routine metoprolol 2019-11 Yes 25mg 25 mg, Unive rs tartrate 12-16 Oral, BID, ity o f (LOPRESSOR) 02:00: First dose [place] tablet 25 00 on [facility] Medical mg 10/14/20 Branch at 1999, Until Discontinu ed, Routine diphenhydrA 2019-11- No 12.5mg 12.5 mg, Univers MINE 12-16 Slow IV ity of (BENADRYL) 01:59: 03:57 Push, [place] injection 02 :54 Q6HPRN, Medical 12.5 mg Starting Branch Wed10/14/20 at 195, Until Wed10/14/20 at 2156, Routine, Itching naloxone 2019-11 Yes .1mg 0.1 mg, Univer s (NARCAN) 12-16 Slow IV ity of injection 01:57: Push, [place] 0.1 mg 05 SEE-INSTRU Medical CTIONS, Branch Starting 10/14/20 at 1956, Until Discontinu ed, Routine acetaminoph 2019-11 2020- No 1000mg 1,000 mg, Univers en ADULT 12-14 IV ity of (OFIRMEV) 18:00: 17:59 Infusion, [place] injection 00 :00 Administer Medi ryann 1,000 mg over 15 Branch Minutes, Q6H, 4 doses, First dose on Wed10/14/20 at 1200, Last dose on Wed10/15/20 at 0600, Routine
Indicatio n: Perioperat pasha Patient morpHINE 30 2019-11- No Unive rs mg/30 mL 12-14 1201 ity of (fixed 17:30: 01:59 [place] dose) [employer] 00 :31 Medical injection Branch lactated 2019-11- No 1000mL at 75 Unive rs ringers IV 12-14 12-02 mL/hr, ity of infusion 16:45: 12:05 1,000 mL, [place] 1,000 mL 00 :02 IV Medical Infusion, Branch CONTINUOUS , Starting Wed10/14/20 at 1045, Until Wed10/16/20 at 0605, Routine, PACU diphenhydrA 2019-11- No 12.5mg 12.5 mg, Univers MINE 12-14 Slow IV ity of (BENADRYL) 16:32: 18:15 Push, [place] injection 01 :20 Q4HPRN, Medical 12.5 mg Starting Branch Wed10/14/20 at 1032, Until Wed10/14/20 at 1215, Routine, Itching, PACU HYDROmorpho 2019-11- No .2mg 0.2 mg, Un thor ne 12-1430 Slow IV ity of (DILAUDID) 16:32: 18:15 Push, [place] injection 00 :20 Q5MIN PRN, Medi ryann 0.2 mg 10 doses, Branch Starting Wed10/14/20 at 1032, Until Wed10/14/20 at 1215, Routine, Pain (scale 7-10), PACU
Us e approved by (Faculty): PACU USE -ANESTHESI A SERVICE-HY DROMORPHON E INJECTIONS naloxone 2019-11 Yes .1mg 0.1 mg, Univer s (NARCAN) 30 Slow IV ity of injection 16:28: Push, [place] 0.1 mg 37 SEE-INSTRU Medical CTIONS, Branch Starting Wed10/14/20 at 1028, Until Discontinu ed, Routine Pantoprazol 2019-11 Yes 40mg Take 40 mg Univers e 12-14 by mouth 2 ity of (PROTONIX) 16:22: (two) [place] 40 mg 03 times Medical delayed-rel daily. Branch ease suspension heparin 2019-11- No 5000U 5,000 Univers (porcine) 12-14 Units, ity of injection 12:45: 12:42 Subcutaneo [place] 5,000 Units 00 :00 us, ONCE, Med ical 1 dose, Branch Wed10/14/20 at 0645, Routine, DSU Pre-op gabapentin 2019-11- No 300mg 300 mg, Un thor (NEURONTIN) 12-14 Oral, O.R. i ty of capsule 300 12:41: 12:43 HOLDING [place] mg 22 :00 ONCE, 1 Medical dose, Branch Starting Wed10/14/20 at 0641, Until Discontinu ed, Routine, Surgery/Pr ocedure, DSU Pre-op acetaminoph 2019-11- No 650mg 650 mg, U nivers en 12-14 Oral, O.R. ity of (TYLENOL) 12:41: 12:43 HOLDING [place] tablet 650 22 :00 ONCE, 1 Medica l mg dose, Branch Starting Wed10/14/20 at 0641, Until Discontinu ed, Routine, Surgery / Procedure, DSU Pre-op ALPRAZolam 2019-11 Yes 2mg Take 2 mg Un thor (XANAX) 2 12-14 by mouth 2 ity of mg tablet 11:48: (two) [place] 52 times Medical daily. Branch ALPRAZolam 2019-11 Yes 2mg Take 2 mg Un thor (XANAX) 2 12-07 by mouth 2 ity of mg tablet 22:40: (two) [place] 26 times Medical daily. Branch ALPRAZolam 2019-11 Yes 2mg Take 2 mg Un thor (XANAX) 2 -23 by mouth 2 ity of mg tablet 22:40: (two) [place] 26 times Medical daily. Branch ALPRAZolam 2019-11 Yes 2mg Take 2 mg Un thor (XANAX) 2 12-07 by mouth 2 ity of mg tablet 22:40: (two) [place] 26 times Medical daily. Branch Pantoprazol 2019-11 Yes 40mg Take 40 mg Univers e 1-23 by mouth 2 ity of (PROTONIX) 22:39: (two) [place] 40 mg 35 times Medical delayed-rel daily. Branch ease suspension Pantoprazol 2019-11 Yes 40mg Take 40 mg Univers e 1-23 by mouth 2 ity of (PROTONIX) 22:39: (two) [place] 40 mg 35 times Medical delayed-rel daily. Branch ease suspension Pantoprazol 2019-11 Yes 40mg Take 40 mg Univers e 1-23 by mouth 2 ity of (PROTONIX) 22:39: (two) [place] 40 mg 35 times Medical delayed-rel daily. Branch ease suspension proMETHazin 2019-11- No 25mg 25 mg, IV Univers e -18 11-18 Piggyback, ity of (PHENERGAN) 06:30: 06:30 ONCE, 1 [place] 25 mg in 00 :00 dose, Wed Medica l NaCl 0.9% 10/02/20 Branch (NS) 50 mL at 0030, piggyback 50 mL NaCl 0.9% 2019-11- No 1000mL at 999 Uni vers (NS) bolus 12-0218 mL/hr, ity of infusion 05:30: 06:38 1,000 mL, [place] 1,000 mL 00 :00 IV Medical Infusion, Branch ONCE, 1 dose, 10/01/20 at 2330, LUISA acetaminoph 2019-11 Yes 274 1{tbl} Take 1 Un thor en-codeine 1-18 tablet by ity of (TYLENOL-CO 00:00: mouth [place] DEINE #3) 00 every 4 Medical 300-30 mg (four) Branch tablet hours as needed for Pain (scale 1-3). Indication s: chronic pain acetaminoph 2019-11 Yes 2745 1{tbl} Take 1 Un thor en-codeine 1-18 tablet by ity of (TYLENOL-CO 00:00: mouth [place] DEINE #3) 00 every 4 Medical 300-30 mg (four) Branch tablet hours as needed for Pain (scale 1-3). Indication s: chronic pain acetaminoph 2019-11 Yes 2745 1{tbl} Take 1 Un thor en-codeine 1-18 tablet by ity of (TYLENOL-CO 00:00: mouth [place] DEINE #3) 00 every 4 Medical 300-30 mg (four) Branch tablet hours as needed for Pain (scale 1-3). Indication s: chronic pain acetaminoph 2020- Yes 2745 1{tbl} Take 1 Un thor en-codeine 1-18 tablet by ity of (TYLENOL-CO 00:00: mouth [place] DEINE #3) 00 every 4 Medical 300-30 mg (four) Branch tablet hours as needed for Pain (scale 1-3). Indication s: chronic pain acetaminoph 2020- Yes 2745 1{tbl} Take 1 Un thor en-codeine 1-18 tablet by ity of (TYLENOL-CO 00:00: mouth [place] DEINE #3) 00 every 4 Medical 300-30 mg (four) Branch tablet hours as needed for Pain (scale 1-3). Indication s: chronic pain acetaminoph 2020-1 Yes 2745 1{tbl} Take 1 Un thor en-codeine 1-18 tablet by ity of (TYLENOL-CO 00:00: mouth [place] DEINE #3) 00 every 4 Medical 300-30 mg (four) Branch tablet hours as needed for Pain (scale 1-3). Indication s: chronic pain acetaminoph 2020- Yes 2745 1{tbl} Take 1 Un thor en-codeine 1-18 tablet by ity of (TYLENOL-CO 00:00: mouth [place] DEINE #3) 00 every 4 Medical 300-30 mg (four) Branch tablet hours as needed for Pain (scale 1-3). Indication s: chronic pain acetaminoph 2019-11 2020- No 2745 1{tbl} Take 1 U nivers en-codeine 1-18 12-16 tablet by ity of (TYLENOL-CO 00:00: 00:00 mouth [place] DEINE #3) 00 :00 every 4 Medical 300-30 mg (four) Branch tablet hours as needed for Pain (scale 1-3). Indication s: chronic pain ALPRAZolam 2019- Yes 2mg Take 2 mg Un thor (XANAX) 2 1-13 by mouth 2 ity of mg tablet 15:03: (two) [place] 04 times Medical daily. Branch Pantoprazol 2019-11 Yes 40mg Take 40 mg Univers e -13 by mouth 2 ity of (PROTONIX) 15:03: (two) [place] 40 mg 04 times Medical delayed-rel daily. Branch ease suspension ALPRAZolam 2020-1 Yes 2mg Take 2 mg Un thor (XANAX) 2 1-13 by mouth 2 ity of mg tablet 15:03: (two) [place] 04 times Medical daily. Branch Pantoprazol 2020-1 Yes 40mg Take 40 mg Univers e 1-13 by mouth 2 ity of (PROTONIX) 15:03: (two) [place] 40 mg 04 times Medical delayed-rel daily. Branch ease suspension ALPRAZolam 2020-1 Yes 2mg Take 2 mg Un thor (XANAX) 2 1-13 by mouth 2 ity of mg tablet 15:03: (two) [place] 04 times Medical daily. Branch Pantoprazol 2020-1 Yes 40mg Take 40 mg [facility] e 1-13 by mouth 2 ity of (PROTONIX) 15:03: (two) [place] 40 mg 04 times Medical delayed-rel daily. Branch ease suspension ALPRAZolam 2020-1 Yes 2mg Take 2 mg Un thor (XANAX) 2 1-13 by mouth 2 ity of mg tablet 15:03: (two) [place] 04 times Medical daily. Branch Pantoprazol 2020-1 Yes 40mg Take 40 mg [facility] e 1-13 by mouth 2 ity of (PROTONIX) 15:03: (two) [place] 40 mg 04 times Medical delayed-rel daily. Branch ease suspension ALPRAZolam 2020-1 Yes 2mg Take 2 mg Un thor (XANAX) 2 1-13 by mouth 2 ity of mg tablet 15:03: (two) [place] 04 times Medical daily. Branch Pantoprazol 2020-1 Yes 40mg Take 40 mg [facility] e 1-13 by mouth 2 ity of (PROTONIX) 15:03: (two) [place] 40 mg 04 times Medical delayed-rel daily. Branch ease suspension ALPRAZolam 2020-1 Yes 2mg Take 2 mg Un tohr (XANAX) 2 1-13 by mouth 2 ity of mg tablet 15:03: (two) [place] 04 times Medical daily. Branch Pantoprazol 2020-1 Yes 40mg Take 40 mg [facility] e 1-13 by mouth 2 ity of (PROTONIX) 15:03: (two) [place] 40 mg 04 times Medical delayed-rel daily. Branch ease suspension ALPRAZolam 2020-1 Yes 2mg Take 2 mg Un thor (XANAX) 2 1-13 by mouth 2 ity of mg tablet 15:03: (two) [place] 04 times Medical daily. Branch Pantoprazol 2019-11 Yes 40mg Take 40 mg [facility] e 1-13 by mouth 2 ity of (PROTONIX) 15:03: (two) [place] 40 mg 04 times Medical delayed-rel daily. Branch ease suspension ALPRAZolam 2019-11 Yes 2mg Take 2 mg Un thor (XANAX) 2 1-13 by mouth 2 ity of mg tablet 15:03: (two) [place] 04 times Medical daily. Branch Pantoprazol 2019-11 Yes 40mg Take 40 mg [facility] e 1-13 by mouth 2 ity of (PROTONIX) 15:03: (two) [place] 40 mg 04 times Medical delayed-rel daily. Branch ease suspension opium 10 2019-11 Yes [id number] 1mL Take 1 mL [facility] mg/mL 1-13 by mouth ity of (morphine) 00:00: every 6 [place] tinct[place] 00 (six) Medical hours. Branch opium 10 2019-11 Yes [id number] 1mL Take 1 mL [facility] mg/mL 1-13 by mouth ity of (morphine) 00:00: every 6 [place] tinct[place] 00 (six) Medical hours. Branch opium 10 2019-11 Yes [id number] 1mL Take 1 mL [facility] mg/mL 1-13 by mouth ity of (morphine) 00:00: every 6 [place] tincture 00 (six) Medical hours. Branch opium 10 2019-11 Yes [id number] 1mL Take 1 mL [facility] mg/mL 1-13 by mouth ity of (morphine) 00:00: every 6 [place] tincture 00 (six) Medical hours. Branch opium 10 2019-11 Yes [id number] 1mL Take 1 mL [facility] mg/mL 1-13 by mouth ity of (morphine) 00:00: every 6 [place] tincture 00 (six) Medical hours. Branch opium 10 2019-11 Yes [id number] 1mL Take 1 mL [facility] mg/mL 1-13 by mouth ity of (morphine) 00:00: every 6 [place] tincture 00 (six) Medical hours. Branch opium 10 2019-11 Yes [id number] 1mL Take 1 mL [facility] mg/mL 1-13 by mouth ity of (morphine) 00:00: every 6 [place] tincture 00 (six) Medical hours. Branch opium 10 2019-11 Yes [id number] 1mL Take 1 mL [facility] mg/mL 1-13 by mouth ity of (morphine) 00:00: every 6 [place] tincture 00 (six) Medical hours. Branch opium 2019-11 Yes [id number] 1mL Take 1 mL [facility] mg/mL 1-13 by mouth ity of (morphine) 00:00: every 6 [place] tincture 00 (six) Medical hours. Branch opium 10 2019-11 Yes [id number] 1mL Take 1 mL [facility] mg/mL 1-13 by mouth ity of (morphine) 00:00: every 6 [place] tincture 00 (six) Medical hours. Branch opium 10 2019-11 Yes [id number] 1mL Take 1 mL [facility] mg/mL 1-13 by mouth ity of (morphine) 00:00: every 6 [place] tincture 00 (six) Medical hours. Branch opium 2019-11 Yes [id number] 1mL Take 1 mL [facility] mg/mL 1-13 by mouth ity of (morphine) 00:00: every 6 [place] tincture 00 (six) Medical hours. Branch opium 2019-11 Yes [id number] 1mL Take 1 mL [facility] mg/mL 1-13 by mouth ity of (morphine) 00:00: every 6 [place] tincture 00 (six) Medical hours. Branch opium 10 2019-11 Yes [id number] 1mL Take 1 mL [facility] mg/mL 1-13 by mouth ity of (morphine) 00:00: every 6 [place] tincture 00 (six) Medical hours. Branch opium 10 2019-11 Yes [id number] 1mL Take 1 mL [facility] mg/mL 1-13 by mouth ity of (morphine) 00:00: every 6 [place] tincture 00 (six) Medical hours. Branch opium 10 2019-11 Yes [id number] 1mL Take 1 mL [facility] mg/mL 1-13 by mouth ity of (morphine) 00:00: every 6 [place] tincture 00 (six) Medical hours. Branch opium 10 2019-11 Yes [id number] 1mL Take 1 mL [facility] mg/mL 1-13 by mouth ity of (morphine) 00:00: every 6 [place] tincture 00 (six) Medical hours. Branch opium 10 2019-11 Yes [id number] 1mL Take 1 mL [facility] mg/mL 1-13 by mouth ity of (morphine) 00:00: every 6 [place] tincture 00 (six) Medical hours. Branch opium 10 2019-11 Yes [id number] 1mL Take 1 mL [facility] mg/mL 1-13 by mouth ity of (morphine) 00:00: every 6 [place] tincture 00 (six) Medical hours. Branch opium 10 2019-11 Yes [id number] 1mL Take 1 mL [facility] mg/mL 1-13 by mouth ity of (morphine) 00:00: every 6 [place] tincture 00 (six) Medical hours. Branch opium 10 2019-11 Yes [id number] 1mL Take 1 mL [facility] mg/mL 1-13 by mouth ity of (morphine) 00:00: every 6 [place] tincture 00 (six) Medical hours. Branch opium 10 2019-11 Yes [id number] 1mL Take 1 mL [facility] mg/mL 1-13 by mouth ity of (morphine) 00:00: every 6 [place] tincture 00 (six) Medical hours. Branch opium 10 2019-11 Yes [id number] 1mL Take 1 mL [facility] mg/mL 1-13 by mouth ity of (morphine) 00:00: every 6 [place] tincture 00 (six) Medical hours. Branch opium 10 2019-11 Yes [id number] 1mL Take 1 mL [facility] mg/mL 1-13 by mouth ity of (morphine) 00:00: every 6 [place] tincture 00 (six) Medical hours. Branch opium 10 2019-11 Yes [id number] 1mL Take 1 mL [facility] mg/mL 1-13 by mouth ity of (morphine) 00:00: every 6 [place] tincture 00 (six) Medical hours. Branch opium 10 2019-11 Yes [id number] 1mL Take 1 mL [facility] mg/mL 1-13 by mouth ity of (morphine) 00:00: every 6 [place] tincture 00 (six) Medical hours. Branch psyllium 2019-11 2020- No [id number] 1{packe Take 1 [facility] 3.4 gram 1-13 12-14 t} Packet by ity o f packet 00:00: 05:59 mouth 3 [place] 00 :00 (three) Medical times Branch daily before meals for 30 days. psyllium 2019-11- No [id number] 1{packe Take 1 [facility] 3.4 gram 1-13 12-14 t} Packet by ity o f packet 00:00: 05:59 mouth 3 [place] 00 :00 (three) Medical times Branch daily before meals for 30 days. psyllium 2019-11- No [id number] 1{packe Take 1 [facility] 3.4 gram 1-13 12-14 t} Packet by ity o f packet 00:00: 05:59 mouth 3 [place] 00 :00 (three) Medical times Branch daily before meals for 30 days. psyllium 2019-11- No [id number] 1{packe Take 1 [facility] 3.4 gram 1-13 12-14 t} Packet by ity o f packet 00:00: 05:59 mouth 3 [place] 00 :00 (three) Medical times Branch daily before meals for 30 days. psyllium 2019-11- No [id number] 1{packe Take 1 [facility] 3.4 gram 1-13 12-14 t} Packet by ity o f packet 00:00: 05:59 mouth 3 [place] 00 :00 (three) Medical times Branch daily before meals for 30 days. psyllium 2019-11- No [id number] 1{packe Take 1 [facility] 3.4 gram 1-13 12-14 t} Packet by ity o f packet 00:00: 05:59 mouth 3 [place] 00 :00 (three) Medical times Branch daily before meals for 30 days. psyllium 2019-11- No [id number] 1{packe Take 1 [facility] 3.4 gram 1-13 12-14 t} Packet by ity o f packet 00:00: 05:59 mouth 3 [place] 00 :00 (three) Medical times Branch daily before meals for 30 days. psyllium 2019-11- No [id number] 1{packe Take 1 [facility] 3.4 gram 1-13 12-14 t} Packet by ity o f packet 00:00: 05:59 mouth 3 [place] 00 :00 (three) Medical times Branch daily before meals for 30 days. psyllium 2019-11- No [id number] 1{packe Take 1 [facility] 3.4 gram 1-13 12-14 t} Packet by ity o f packet 00:00: 05:59 mouth 3 [place] 00 :00 (three) Medical times Branch daily before meals for 30 days. psyllium 2019-11- No [id number] 1{packe Take 1 [facility] 3.4 gram 1-13 12-14 t} Packet by ity o f packet 00:00: 05:59 mouth 3 [place] 00 :00 (three) Medical times Branch daily before meals for 30 days. psyllium 2019-11- No [id number] 1{packe Take 1 Univers 3.4 gram 1-13 12-14 t} Packet by ity o f packet 00:00: 05:59 mouth 3 [place] 00 :00 (three) Medical times Gideon daily before meals for 30 days. psyllium 2019-11- No [id number] 1{packe Take 1 [facility] 3.4 gram 1-13 12-14 t} Packet by ity o f packet 00:00: 05:59 mouth 3 [place] 00 :00 (three) Medical times Branch daily before meals for 30 days. psyllium 2019-11- No [id number] 1{packe Take 1 [facility] 3.4 gram 1-13 12-14 t} Packet by ity o f packet 00:00: 05:59 mouth 3 [place] 00 :00 (three) Medical times Gideon daily before meals for 30 days. psyllium 2019-11- No [id number] 1{packe Take 1 [facility] 3.4 gram 1-13 12-14 t} Packet by ity o f packet 00:00: 05:59 mouth 3 [place] 00 :00 (three) Medical times Branch daily before meals for 30 days. psyllium 2019-11- No [id number] 1{packe Take 1 [facility] 3.4 gram 1-13 12-10 t} Packet by ity o f packet 00:00: 00:00 mouth 3 [place] 00 :00 (three) Medical times Branch daily before meals for 30 days. dextroamphe 2019-11- No 30mg Take 30 mg [facility] tamine-amph 11-18 11-04 by mouth 2 i ty of etamine 23:07: 00:00 (two) [place] (ADDERALL) 54 :00 times Medical 30 mg daily. Branch tablet ALPRAZolam 2019- Yes 2mg Take 2 mg Un thor (XANAX) 2 1-04 by mouth 2 ity of mg tablet 23:07: (two) [place] 52 times Medical daily. Branch Pantoprazol 2020-1 Yes 40mg Take 40 mg [facility] e 1-04 by mouth 2 ity of (PROTONIX) 23:07: (two) [place] 40 mg 52 times Medical delayed-rel daily. Branch ease suspension ALPRAZolam 2020- Yes 2mg Take 2 mg Un thor (XANAX) 2 1-04 by mouth 2 ity of mg tablet 23:07: (two) [place] 52 times Medical daily. Branch Pantoprazol 2020- Yes 40mg Take 40 mg [facility] e 1-04 by mouth 2 ity of (PROTONIX) 23:07: (two) [place] 40 mg 52 times Medical delayed-rel daily. Branch ease suspension ALPRAZolam 2019- Yes 2mg Take 2 mg Un thor (XANAX) 2 1-04 by mouth 2 ity of mg tablet 23:07: (two) [place] 52 times Medical daily. Branch Pantoprazol 2019- Yes 40mg Take 40 mg [facility] e 1-04 by mouth 2 ity of (PROTONIX) 23:07: (two) [place] 40 mg 52 times Medical delayed-rel daily. Branch ease suspension ALPRAZolam 2019- Yes 2mg Take 2 mg Un thor (XANAX) 2 1-04 by mouth 2 ity of mg tablet 23:07: (two) [place] 52 times Medical daily. Branch Pantoprazol 2019- Yes 40mg Take 40 mg [facility] e 1-04 by mouth 2 ity of (PROTONIX) 23:07: (two) [place] 40 mg 52 times Medical delayed-rel daily. Branch ease suspension metoprolol 2019- Yes 50mg 50 mg, Unive rs tartrate -04 Oral, BID, ity o f (LOPRESSOR) 02:00: First dose [place] tablet 50 00 (after Medical mg last Branch modificati on) on Wed09/17/20 at 1999, Until Discontinu ed, Routine HYDROmorpho 2019- 2020- No .5mg 0.5 mg, Un thor ne -02 23-04 Slow IV ity of (DILAUDID) 01:15: 00:26 Push, [place] injection 00 :00 ONCE, 1 Medical 0.5 mg dose, Tue Branch 09/17/20 at 1915, Routine
Use approved by (Faculty): ADC PROVIDER HYDROcodone 2019-11 Yes 4647 1{tbl} Take 1 Un thor -acetaminop 1-04 tablet by ity of hen 5-325 00:00: mouth [place] mg tablet 00 every 6 Medical (six) Branch hours as needed for Pain (scale 4-6). Indication s: acute pain HYDROcodone 2019-11 Yes 4647 1{tbl} Take 1 Un thor -acetaminop 1-04 tablet by ity of hen 5-325 00:00: mouth [place] mg tablet 00 every 6 Medical (six) Branch hours as needed for Pain (scale 4-6). Indication s: acute pain HYDROcodone 2019-11 Yes 4647 1{tbl} Take 1 Un thor -acetaminop 1-04 tablet by ity of hen 5-325 00:00: mouth [place] mg tablet 00 every 6 Medical (six) Branch hours as needed for Pain (scale 4-6). Indication s: acute pain HYDROcodone 2019-11 Yes 4647 1{tbl} Take 1 Un thor -acetaminop 1-04 tablet by ity of hen 5-325 00:00: mouth [place] mg tablet 00 every 6 Medical (six) Branch hours as needed for Pain (scale 4-6). Indication s: acute pain HYDROcodone 2019-11 Yes 4647 1{tbl} Take 1 Un thor -acetaminop 1-04 tablet by ity of hen 5-325 00:00: mouth [place] mg tablet 00 every 6 Medical (six) Branch hours as needed for Pain (scale 4-6). Indication s: acute pain HYDROcodone 2019-11 Yes 4647 1{tbl} Take 1 Un thor -acetaminop 1-04 tablet by ity of hen 5-325 00:00: mouth [place] mg tablet 00 every 6 Medical (six) Branch hours as needed for Pain (scale 4-6). Indication s: acute pain HYDROcodone 2019-11 Yes 4647 1{tbl} Take 1 Un thor -acetaminop 1-04 tablet by ity of hen 5-325 00:00: mouth [place] mg tablet 00 every 6 Medical (six) Branch hours as needed for Pain (scale 4-6). Indication s: acute pain HYDROcodone 2019-11 Yes 4647 1{tbl} Take 1 Un thor -acetaminop 1-04 tablet by ity of hen 5-325 00:00: mouth [place] mg tablet 00 every 6 Medical (six) Branch hours as needed for Pain (scale 4-6). Indication s: acute pain HYDROcodone 2019-11 Yes 4647 1{tbl} Take 1 Un thor -acetaminop 1-04 tablet by ity of hen 5-325 00:00: mouth [place] mg tablet 00 every 6 Medical (six) Branch hours as needed for Pain (scale 4-6). Indication s: acute pain HYDROcodone 2019-11 Yes 4647 1{tbl} Take 1 Un thor -acetaminop 1-04 tablet by ity of hen 5-325 00:00: mouth [place] mg tablet 00 every 6 Medical (six) Branch hours as needed for Pain (scale 4-6). Indication s: acute pain HYDROcodone 2019-11 Yes 4647 1{tbl} Take 1 Un thor -acetaminop 1-04 tablet by ity of hen 5-325 00:00: mouth [place] mg tablet 00 every 6 Medical (six) Branch hours as needed for Pain (scale 4-6). Indication s: acute pain HYDROcodone 2019-11 Yes 4647 1{tbl} Take 1 Un thor -acetaminop 1-04 tablet by ity of hen 5-325 00:00: mouth [place] mg tablet 00 every 6 Medical (six) Branch hours as needed for Pain (scale 4-6). Indication s: acute pain HYDROcodone 2019-11 Yes 4647 1{tbl} Take 1 Un thor -acetaminop 1-04 tablet by ity of hen 5-325 00:00: mouth [place] mg tablet 00 every 6 Medical (six) Branch hours as needed for Pain (scale 4-6). Indication s: acute pain HYDROcodone 2019-11 Yes 4647 1{tbl} Take 1 Un thor -acetaminop 1-04 tablet by ity of hen 5-325 00:00: mouth [place] mg tablet 00 every 6 Medical (six) Branch hours as needed for Pain (scale 4-6). Indication s: acute pain HYDROcodone 2019-11 Yes 4647 1{tbl} Take 1 Un thor -acetaminop 1-04 tablet by ity of hen 5-325 00:00: mouth [place] mg tablet 00 every 6 Medical (six) Branch hours as needed for Pain (scale 4-6). Indication s: acute pain HYDROcodone 2019-11 Yes 4647 1{tbl} Take 1 Un thor -acetaminop 1-04 tablet by ity of hen 5-325 00:00: mouth [place] mg tablet 00 every 6 Medical (six) Branch hours as needed for Pain (scale 4-6). Indication s: acute pain HYDROcodone 2019-11 Yes 4647 1{tbl} Take 1 Un thor -acetaminop 1-04 tablet by ity of hen 5-325 00:00: mouth [place] mg tablet 00 every 6 Medical (six) Branch hours as needed for Pain (scale 4-6). Indication s: acute pain HYDROcodone 2019-11 Yes 4647 1{tbl} Take 1 Un thor -acetaminop 1-04 tablet by ity of hen 5-325 00:00: mouth [place] mg tablet 00 every 6 Medical (six) Branch hours as needed for Pain (scale 4-6). Indication s: acute pain HYDROcodone 2019-11 2020- No 4647 1{tbl} Take 1 U nivers -acetaminop 1-04 12-16 tablet by it y of hen 5-325 00:00: 00:00 mouth [place] mg tablet 00 :00 every 6 Medical (six) Branch hours as needed for Pain (scale 4-6). Indication s: acute pain proMETHazin 2019-11 2020- No [id number] 25mg Take 1 [facility] e 25 mg 1-04 11-25 tablet by ity of tablet 00:00: 05:59 mouth [place] 00 :00 every 6 Medical (six) Branch hours as needed for Nausea and Vomiting (N/V) for up to 20 days. proMETHazin 2019-11 2020- No [id number] 25mg Take 1 Univers e 25 mg 1-04 11-25 tablet by ity of tablet 00:00: 05:59 mouth [place] 00 :00 every 6 Medical (six) Branch hours as needed for Nausea and Vomiting (N/V) for up to 20 days. proMETHazin 2019-11 2020- No [id number] 25mg Take 1 Univers e 25 mg 1-04 11-25 tablet by ity of tablet 00:00: 05:59 mouth [place] 00 :00 every 6 Medical (six) Branch hours as needed for Nausea and Vomiting (N/V) for up to 20 days. proMETHazin 2019- 2020- No [id number] 25mg Take 1 [facility] e 25 mg 1-04 11-25 tablet by ity of tablet 00:00: 05:59 mouth [place] 00 :00 every 6 Medical (six) Branch hours as needed for Nausea and Vomiting (N/V) for up to 20 days. proMETHazin 2019-11- No [id number] 25mg Take 1 [facility] e 25 mg 1-04 11-25 tablet by ity of tablet 00:00: 05:59 mouth [place] 00 :00 every 6 Medical (six) Branch hours as needed for Nausea and Vomiting (N/V) for up to 20 days. proMETHazin 2019-11- No [id number] 25mg Take 1 [facility] e 25 mg 1-04 11-25 tablet by ity of tablet 00:00: 05:59 mouth [place] 00 :00 every 6 Medical (six) Branch hours as needed for Nausea and Vomiting (N/V) for up to 20 days. proMETHazin 2019-11- No [id number] 25mg Take 1 [facility] e 25 mg 1-04 11-25 tablet by ity of tablet 00:00: 05:59 mouth [place] 00 :00 every 6 Medical (six) Branch hours as needed for Nausea and Vomiting (N/V) for up to 20 days. proMETHazin 2019-11- No [id number] 25mg Take 1 [facility] e 25 mg 1-04 11-25 tablet by ity of tablet 00:00: 05:59 mouth [place] 00 :00 every 6 Medical (six) Branch hours as needed for Nausea and Vomiting (N/V) for up to 20 days. proMETHazin 2019-11- No [id number] 25mg Take 1 [facility] e 25 mg 1-04 11-25 tablet by ity of tablet 00:00: 05:59 mouth [place] 00 :00 every 6 Medical (six) Branch hours as needed for Nausea and Vomiting (N/V) for up to 20 days. proMETHazin 2019-2019- No [id number] 25mg Take 1 [facility] e 25 mg 1-04 11-25 tablet by ity of tablet 00:00: 05:59 mouth [place] 00 :00 every 6 Medical (six) Branch hours as needed for Nausea and Vomiting (N/V) for up to 20 days. proMETHazin 2019- 2020- No [id number] 25mg Take 1 [facility] e 25 mg 1-04 11-25 tablet by ity of tablet 00:00: 05:59 mouth [place] 00 :00 every 6 Medical (six) Branch hours as needed for Nausea and Vomiting (N/V) for up to 20 days. proMETHazin 2019- 2020- No [id number] 25mg Take 1 [facility] e 25 mg 1-04 11-25 tablet by ity of tablet 00:00: 05:59 mouth [place] 00 :00 every 6 Medical (six) Branch hours as needed for Nausea and Vomiting (N/V) for up to 20 days. proMETHazin 2019- 2020- No [id number] 25mg Take 1 [facility] e 25 mg 1-04 11-25 tablet by ity of tablet 00:00: 05:59 mouth [place] 00 :00 every 6 Medical (six) Branch hours as needed for Nausea and Vomiting (N/V) for up to 20 days. proMETHazin 2019- 2020- No [id number] 25mg Take 1 [facility] e 25 mg -04 11-25 tablet by ity of tablet 00:00: 05:59 mouth [place] 00 :00 every 6 Medical (six) Branch hours as needed for Nausea and Vomiting (N/V) for up to 20 days. HYDROmorphO 2019- 2020- No 1mg 1 mg, Slow Univers ne 11-17 IV Push, ity of (DILAUDID) 16:15: 15:22 ONCE, 1 [place] injection 1 00 :00 dose, Tue Med ical mg 09/17/20 at Branch 1015, Routine
Use approved by (Faculty): ADC PROVIDER HYDROmorpho 2019- 2020- No 1mg 1 mg, Slow [facility] ne 11-17 IV Push, ity of (DILAUDID) 07:30: 06:44 ONCE, 1 [place] injection 1 00 :00 dose, Tue Med ical mg 09/17/20 at Branch 0130, Routine
Use approved by (Faculty): ADC PROVIDER HYDROmorpho 2019- 2020- No .5mg 0.5 mg, Un thor ne 11-16 Slow IV ity of (DILAUDID) 19:45: 19:10 Push, [place] injection 00 :00 ONCE, 1 Medical 0.5 mg dose, Mon Branch 09/16/20 at 1345, Routine
Use approved by (Faculty): ADC PROVIDER HYDROcodone 2019-11 Yes 2{tbl} 2 tablet, Univers -acetaminop 11-16 Oral, ity of hen (NORCO 18:45: Q6HPRN, [place] 5) 5-325 mg 00 Starting Medi ryann tablet 2 Mon Branch tablet 09/16/20 at 1245, Until Discontinu ed, Routine, Pain (scale 4-6), Pain (scale 7-10) proMETHazin 2019-11 Yes 25mg 25 mg, IV U nivers e 11-16 Piggyback, ity of (PHENERGAN) 18:30: Q6HPRN, [place] 25 mg in 00 Starting Medical NaCl 0.9% Mon Branch (NS) 50 mL 09/16/20 at IV 1230, piggyback Until Discontinu ed, Routine, Nausea and Vomiting (N/V) HYDROmorpho 2019-11- No .5mg 0.5 mg, Un thor ne 11-15 Slow IV ity of (DILAUDID) 20:03: 16:40 Push, [place] injection 04 :53 Q6HPRN, Medical 0.5 mg Starting Branch 09/15/20 at 1403, Until 09/16/20 at 1040, Routine, Pain (scale 7-10)
U se approved by (Faculty): ADC PROVIDER HYDROmorphO 2019-11- No 1mg 1 mg, Slow Univers ne 11-15 IV Push, ity of (DILAUDID) 14:38: 18:06 Q4HPRN, [place] injection 1 34 :04 Starting Medi ryann mg Sun Branch 09/15/20 at 0838, Until 09/15/20 at 1206, Routine, Pain (scale 7-10)
U se approved by (Faculty): ADC PROVIDER methylpredn 2019-11- No 125mg 125 mg, U nivers isolone sod 11-15 Slow IV ity of succ 08:45: 07:57 Push, ONCE [place] (SOLU-MEDRO 00 :00 NOW, 1 Medica l L) dose, Sun Branch injection 09/15/20 at 125 mg 0245, Routine HYDROcodone 2019-11 2020- No 1{tbl} 1 tablet, Univers -acetaminop 11-15 Oral, ity of hen (NORCO 07:40: 18:35 Q4HPRN, [place] 5) 5-325 mg 07 :16 Starting Medi ryann tablet 1 Sun Branch tablet 09/15/20 at 0140, Until 09/16/20 at 1235, Routine, Pain (scale 4-6) HYDROmorpho 2019-11- No 1mg 1 mg, Slow [facility] ne 11-15 IV Push, ity of (DILAUDID) 07:36: 14:39 Q4HPRN, [place] injection 1 49 :07 Starting Medi ryann mg Sun Branch 09/15/20 at 0136, Until 09/15/20 at 0839, Routine, Pain (scale 7-10)
U se approved by (Faculty): ADC PROVIDER HYDROmorpho 2019-11- No 1mg 1 mg, Slow [facility] ne 11-15 IV Push, ity of (DILAUDID) 02:30: 02:27 ONCE, 1 [place] injection 1 00 :00 dose, Sat Med ical mg 09/14/20 Branch at 2130, Routine
Use approved by (Faculty): ADC PROVIDER psyllium 2019-11 Yes 1{packe 1 Packet, U nivers (METAMUCIL 0-31 t} Oral, BID, ity of FIBER 19:15: First dose [place] SINGLES) 00 on Sat Medical 3.4 gram 09/14/20 Branch packet 1 at 1415, Packet Until Discontinu ed, Routine lactobacill 2019-11 Yes 1{tbl} 1 tablet, Univers us 0-31 Oral, TID, ity of acidophilus 19:15: First dose [place] (ACIDOPHILL 00 on Sat Medica l US) 25 09/14/20 Branch million at 1415, cell -100 Until mg captab 1 Discontinu tablet ed, Routine magnesium 2019-11- No 400mg 400 mg, Uni vers oxide 0-31 10-31 Oral, ONCE ity of (MAG-OX 18:15: 19:50 NOW, 1 [place] 400) tablet 00 :00 dose, Sat Med ical 400 mg 09/14/20 Branch at 1315, Routine HYDROcodone 2019-11 2020- No 1{tbl} 1 tablet, Univers -acetaminop 09-15 Oral, ity of hen (NORCO) 14:35: 07:40 Q6HPRN, [place] 10-325 mg 18 :22 Starting Medica l tablet 1 Sat Branch tablet 09/14/20 at 0935, Until 09/15/20 at 0140, Routine, Pain (scale 7-10) diphenhydrA 2019-11 Yes 12.5mg 12.5 mg, Univers MINE Slow IV ity of (BENADRYL) 14:26: Push, [place] injection 59 Q6HPRN, Medical 12.5 mg Starting Branch 09/14/20 at 0926, Until Discontinu ed, Routine, Itching pantoprazol 2019-11 Yes 40mg 40 mg, Univ ers e Oral, ity of (PROTONIX) 14:00: DAILY, [place] EC tablet 00 First dose Medi ryann 40 mg on Sat Branch 09/14/20 at 0900, Until Discontinu ed ALPRAZolam 2019-11 Yes .5mg 0.5 mg, Univ ers (XANAX) Oral, ity of tablet 0.5 13:00: TIDPRN, [place] mg 00 Starting Medical Sat Branch 09/14/20 at 0800, Until Discontinu ed, Routine, anxiety clindamycin 2019-11- No 600mg 600 mg, IV Univers in 5 % 09-14 Piggyback, ity of dextrose 06:45: 19:02 Q8H ABX, [place] (CLEOCIN) 00 :12 First dose Medi ryann 600 mg/50 on Sat Branch mL IV 09/14/20 piggyback at 0145, RTU 600 mg Until Discontinu ed, 50 mL
R bonnie for Anti-Infec tive: Empiric Therapy for Suspected Infection< br>Empiric Therapy Site: Skin / Soft tissue
Duration of therapy: 7 days
Re stricted use approved by: ADC PROVIDER ALPRAZolam 2019-11- No 1mg 1 mg, Unive rs (XANAX) 09-14 Oral, ity of tablet 1 mg 04:30: 04:09 ONCE, 1 [place] 00 :00 dose, Fri Medical 09/13/20 Branch at 2330, Routine morpHINE 2019-11- No 4mg 4 mg, Slow Un thor injection 4 009-14 IV Push, ity of mg 04:00: 22:20 Q4HPRN, [place] 00 :01 Starting Medical Fri Branch 09/13/20 at 2300, Until 09/14/20 at 1720, Routine, Pain (scale 7-10) heparin 2019-11 Yes 5000U 5,000 [facility] (porcine) 0-31 Units, ity of injection 03:00: Subcutaneo [place] 5,000 Units 00 us, Q8H, Medi ryann First dose Branch (after last modificati on) on Wed09/13/20 at 2200, Until Discontinu ed, Routine proMETHazin 2019-11- No 12.5mg 12.5 mg, Univers e 0-02 IV ity of (PHENERGAN) 01:23: 18:35 Piggyback, [place] 12.5 mg in 35 :16 Q4HPRN, Medica l NaCl 0.9% Starting Branch (NS) 50 mL Fri IV 09/13/20 piggyback at 2023, Until 09/16/20 at 1235, Routine, Nausea and Vomiting (N/V) metoprolol 2019-11- No 25mg 25 mg, Univ ers tartrate 0- 11-03 Oral, BID, ity of (LOPRESSOR) 01:00: 23:43 First dose [place] tablet 25 00 :41 on Fri Medical mg 09/13/20 Branch at 2000, Until Discontinu ed, Routine acetaminoph 2019-11 Yes 650mg 650 mg, Un thor en 0-30 Oral, Q6H, ity of (TYLENOL) 23:00: First dose [place] tablet 650 00 on Fri Medical mg 09/13/20 Branch at 1800, Until Discontinu ed, Routine proMETHazin 2019-11- No 12.5mg 12.5 mg, Univers e 0-30 09-14 Oral, ity of (PHENERGAN) 21:52: 01:23 Q6HPRN, [place] tablet 12.5 52 :46 Starting Medi ryann mg Fri Branch 09/13/20 at 1652, Until 09/13/20 at 2022, Routine, Nausea and Vomiting (N/V) morpHINE 2019- 2020- No 2mg 2 mg, Slow Un thor injection 2 0-30 10-31 IV Push, ity of mg 21:52: 03:49 Q6HPRN, [place] 02 :41 Starting Medical Fri Branch 09/13/20 at 1652, Until 09/13/20 at 2249, Routine, Pain (scale 7-10) ALPRAZolam 2019- Yes 2mg Take 2 mg Un thor (XANAX) 2 0-30 by mouth 2 ity of mg tablet 21:19: (two) [place] 51 times Medical daily. Branch dextroamphe 2019- Yes 30mg Take 30 mg Univers tamine-amph 0-30 by mouth 2 it y of etamine 21:19: (two) [place] (ADDERALL) 51 times Medical 30 mg daily. Branch tablet Pantoprazol 2019- Yes 40mg Take 40 mg Univers e 0-30 by mouth 2 ity of (PROTONIX) 21:19: (two) [place] 40 mg 51 times Medical delayed-rel daily. Branch ease suspension ALPRAZolam 2019- Yes 2mg Take 2 mg Un thor (XANAX) 2 0-30 by mouth 2 ity of mg tablet 21:19: (two) [place] 51 times Medical daily. Branch dextroamphe 2019-1 Yes 30mg Take 30 mg Univers tamine-amph 0-30 by mouth 2 it y of etamine 21:19: (two) [place] (ADDERALL) 51 times Medical 30 mg daily. Branch tablet Pantoprazol 2019- Yes 40mg Take 40 mg Univers e 0-30 by mouth 2 ity of (PROTONIX) 21:19: (two) [place] 40 mg 51 times Medical delayed-rel daily. Branch ease suspension ALPRAZolam 2019- Yes 2mg Take 2 mg Un thor (XANAX) 2 0-30 by mouth 2 ity of mg tablet 21:19: (two) [place] 51 times Medical daily. Branch dextroamphe 2019- Yes 30mg Take 30 mg Univers tamine-amph 0-30 by mouth 2 it y of etamine 21:19: (two) [place] (ADDERALL) 51 times Medical 30 mg daily. Branch tablet Pantoprazol 2019-11 Yes 40mg Take 40 mg Univers e 0-30 by mouth 2 ity of (PROTONIX) 21:19: (two) [place] 40 mg 51 times Medical delayed-rel daily. Branch ease suspension ALPRAZolam 2019-11 Yes 2mg Take 2 mg Un thor (XANAX) 2 0-30 by mouth 2 ity of mg tablet 21:19: (two) [place] 51 times Medical daily. Branch dextroamphe 2019-11 Yes 30mg Take 30 mg Univers tamine-amph 0-30 by mouth 2 it y of etamine 21:19: (two) [place] (ADDERALL) 51 times Medical 30 mg daily. Branch tablet Pantoprazol 2019-11 Yes 40mg Take 40 mg Univers e 0-30 by mouth 2 ity of (PROTONIX) 21:19: (two) [place] 40 mg 51 times Medical delayed-rel daily. Branch ease suspension ALPRAZolam 2019-11 Yes 2mg Take 2 mg Un thor (XANAX) 2 0-30 by mouth 2 ity of mg tablet 21:19: (two) [place] 51 times Medical daily. Branch dextroamphe 2019-11 Yes 30mg Take 30 mg Univers tamine-amph 0-30 by mouth 2 it y of etamine 21:19: (two) [place] (ADDERALL) 51 times Medical 30 mg daily. Branch tablet Pantoprazol 2019-11 Yes 40mg Take 40 mg Univers e 0-30 by mouth 2 ity of (PROTONIX) 21:19: (two) [place] 40 mg 51 times Medical delayed-rel daily. Branch ease suspension diphenhydrA 2019-11 No 12.5mg 12.5 mg, Univers MINE 0-30 10-31 Slow IV ity of (BENADRYL) 21:14: 14:27 Push, [place] injection 00 :41 Q6HPRN, Medical 12.5 mg Starting Branch 09/13/20 at 1614, Until 09/14/20 at 0927, Routine, Itching acetaminoph 2019-11 Yes 650mg 650 mg, Un thor en 0-30 Oral, ity of (TYLENOL) 20:56: Q6HPRN, [place] tablet 650 54 Starting Medic al mg Fri Branch 09/13/20 at 1556, Until Discontinu ed, Routine, Pain (scale 1-3) NaCl 0.9% 2019-11- No 1000mL at 125 Uni vers (NS) IV 0-30 11-02 mL/hr, IV ity of infusion 20:15: 16:42 Infusion, [place] 1,000 mL 00 :06 CONTINUOUS Medic al , Starting Branch Wed09/13/20 at 1515, Until 09/16/20 at 1042, Routine ALPRAZolam 2019-11 Yes 2mg Take 2 mg Un thor (XANAX) 2 0-30 by mouth 2 ity of mg tablet 19:55: (two) [place] 40 times Medical daily. Branch dextroamphe 2019-11 Yes 30mg Take 30 mg Univers tamine-amph 0-30 by mouth 2 it y of etamine 19:55: (two) [place] (ADDERALL) 40 times Medical 30 mg daily. Branch tablet Pantoprazol 2019-11 Yes 40mg Take 40 mg Univers e 0-30 by mouth 2 ity of (PROTONIX) 19:55: (two) [place] 40 mg 40 times Medical delayed-rel daily. Branch ease suspension NaCl 0.9% 2019-11- No 1000mL at 999 Uni vers (NS) IV 0-30 10-30 mL/hr, IV ity of infusion 19:15: 18:11 Infusion, [place] 1,000 mL 00 :00 ONCE, 1 Medical dose, Fri Branch 09/13/20 at 1415, LUISA famotidine 2019-11- No 20mg 20 mg, Univ ers (PEPCID 0-30 10-30 Slow IV ity of (PF)) 19:15: 18:11 Push, [place] injection 00 :00 ONCE, 1 Medical 20 mg dose, Fri Branch 09/13/20 at 1415, LUISA methylpredn 2019-11 2020- No 125mg 125 mg, IV Univers isolone sod 0-30 10-30 Piggyback, i ty of succ 19:15: 18:06 ONCE, 1 [place] (SOLU-MEDRO 00 :00 dose, Fri Med ical L) 09/13/20 Branch injection at 1415, 125 mg STAT morpHINE 2019-11 2020- No 4mg 4 mg, Slow Un thor injection 4 0-30 10-30 IV Push, ity of mg 18:15: 17:33 ONCE, 1 [place] 00 :00 dose, Fri Medical 10/30/20 Branch at 1315, STAT ondansetron 2019-11 2020- No 4mg 4 mg, Slow Univers (ZOFRAN 0-30 10-30 IV Push, ity of (PF)) 18:15: 17:44 ONCE, 1 [place] injection 4 00 :00 dose, Fri Med ical mg 09/13/20 Branch at 1315, Routine NaCl 0.9% 2019-11 2020- No 1000mL at 999 Uni vers (NS) IV 0-30 10-30 mL/hr, ity of infusion 17:00: 18:07 Intravenou [place] 1,000 mL 00 :00 s, ONCE, 1 Medic al dose, Fri Branch 09/13/20 at 1200, LUISA proMETHazin 2019-11 2020- No 12.5mg 12.5 mg, Univers e 0-30 10-30 IV ity of (PHENERGAN) 16:45: 16:45 Piggyback, [place] 12.5 mg in 00 :00 ONCE, 1 Medica l NaCl 0.9% dose, Fri Branc h (NS) 50 mL 09/13/20 piggyback at 1145, 50 mL diphenhydrA 2019-11 2020- No 25mg 25 mg, Uni vers MINE 0-30 10-30 Slow IV ity of (BENADRYL) 16:45: 16:01 Push, [place] injection 00 :00 ONCE, 1 Medical 25 mg dose, Fri Branch 09/13/20 at 1145, STAT morpHINE 2019-11 2020- No 4mg 4 mg, Slow Un thor injection 4 0-30 10-30 IV Push, ity of mg 16:45: 16:01 ONCE, 1 [place] 00 :00 dose, Fri Medical 09/13/20 Branch at 1145, STAT ALPRAZolam 2019-11 Yes 2mg Take 2 mg Un thor (XANAX) 2 0-28 by mouth 2 ity of mg tablet 01:28: (two) [place] 56 times Medical daily. Branch dextroamphe 2019-11 Yes 30mg Take 30 mg Univers tamine-amph 0-28 by mouth 2 it y of etamine 01:28: (two) [place] (ADDERALL) 56 times Medical 30 mg daily. Branch tablet Pantoprazol 2019-11 Yes 40mg Take 40 mg Univers e 0-28 by mouth 2 ity of (PROTONIX) 01:28: (two) [place] 40 mg 56 times Medical delayed-rel daily. Branch ease suspension ALPRAZolam 2020-1 Yes 2mg Take 2 mg Un thor (XANAX) 2 0-28 by mouth 2 ity of mg tablet 01:28: (two) [place] 56 times Medical daily. Branch dextroamphe 2020-1 Yes 30mg Take 30 mg Univers tamine-amph 0-28 by mouth 2 it y of etamine 01:28: (two) [place] (ADDERALL) 56 times Medical 30 mg daily. Branch tablet Pantoprazol 2020-1 Yes 40mg Take 40 mg [facility] e 0-28 by mouth 2 ity of (PROTONIX) 01:28: (two) [place] 40 mg 56 times Medical delayed-rel daily. Branch ease suspension ALPRAZolam 2020-1 Yes 2mg Take 2 mg Un thor (XANAX) 2 0-28 by mouth 2 ity of mg tablet 01:28: (two) [place] 56 times Medical daily. Branch dextroamphe 2020-1 Yes 30mg Take 30 mg Univers tamine-amph 0-28 by mouth 2 it y of etamine 01:28: (two) [place] (ADDERALL) 56 times Medical 30 mg daily. Branch tablet Pantoprazol 2020-1 Yes 40mg Take 40 mg Univers e 0-28 by mouth 2 ity of (PROTONIX) 01:28: (two) [place] 40 mg 56 times Medical delayed-rel daily. Branch ease suspension ALPRAZolam 2020-1 Yes 2mg Take 2 mg Un thor (XANAX) 2 0-28 by mouth 2 ity of mg tablet 01:28: (two) [place] 56 times Medical daily. Branch dextroamphe 2020-1 Yes 30mg Take 30 mg [facility] tamine-amph 0-28 by mouth 2 it y of etamine 01:28: (two) [place] (ADDERALL) 56 times Medical 30 mg daily. Branch tablet Pantoprazol 2020-1 Yes 40mg Take 40 mg Univers e 0-28 by mouth 2 ity of (PROTONIX) 01:28: (two) [place] 40 mg 56 times Medical delayed-rel daily. Branch ease suspension ALPRAZolam 2020-1 Yes 2mg Take 2 mg Un thor (XANAX) 2 0-28 by mouth 2 ity of mg tablet 01:28: (two) [place] 56 times Medical daily. Branch dextroamphe 2020-1 Yes 30mg Take 30 mg Univers tamine-amph 0-28 by mouth 2 it y of etamine 01:28: (two) [place] (ADDERALL) 56 times Medical 30 mg daily. Branch tablet Pantoprazol 2019-11 Yes 40mg Take 40 mg [facility] e 0-28 by mouth 2 ity of (PROTONIX) 01:28: (two) [place] 40 mg 56 times Medical delayed-rel daily. Branch ease suspension HYDROcodone 2019-11 No 4647 1{tbl} Take 1 U nivers -acetaminop 0-27 11-04 tablet by it y of hen 5-325 00:00: 05:59 mouth [place] mg tablet 00 :00 every 6 Medical (six) Branch hours as needed for Pain (scale 4-6) for up to 7 days. Indication s: acute pain HYDROcodone 2019-11 No 4647 1{tbl} Take 1 U nivers -acetaminop 0-27 11-04 tablet by it y of hen 5-325 00:00: 05:59 mouth [place] mg tablet 00 :00 every 6 Medical (six) Branch hours as needed for Pain (scale 4-6) for up to 7 days. Indication s: acute pain HYDROcodone 2019-11 No 4647 1{tbl} Take 1 U nivers -acetaminop 0-27 11-04 tablet by it y of hen 5-325 00:00: 05:59 mouth [place] mg tablet 00 :00 every 6 Medical (six) Branch hours as needed for Pain (scale 4-6) for up to 7 days. Indication s: acute pain HYDROcodone 2019-11 No 4647 1{tbl} Take 1 U nivers -acetaminop 0-27 11-04 tablet by it y of hen 5-325 00:00: 05:59 mouth [place] mg tablet 00 :00 every 6 Medical (six) Branch hours as needed for Pain (scale 4-6) for up to 7 days. Indication s: acute pain HYDROcodone 2019-11 No 4647 1{tbl} Take 1 U nivers -acetaminop 0-27 11-04 tablet by it y of hen 5-325 00:00: 05:59 mouth [place] mg tablet 00 :00 every 6 Medical (six) Branch hours as needed for Pain (scale 4-6) for up to 7 days. Indication s: acute pain HYDROcodone 2019-11 No 4647 1{tbl} Take 1 U nivers -acetaminop 0-27 11-04 tablet by it y of hen 5-325 00:00: 05:59 mouth [place] mg tablet 00 :00 every 6 Medical (six) Branch hours as needed for Pain (scale 4-6) for up to 7 days. Indication s: acute pain HYDROcodone 2019-11 No 4647 1{tbl} Take 1 U nivers -acetaminop 0-27 11-04 tablet by it y of hen 5-325 00:00: 05:59 mouth [place] mg tablet 00 :00 every 6 Medical (six) Branch hours as needed for Pain (scale 4-6) for up to 7 days. Indication s: acute pain HYDROcodone 2019-11 No 4647 1{tbl} Take 1 U nivers -acetaminop 0-27 11-04 tablet by it y of hen 5-325 00:00: 05:59 mouth [place] mg tablet 00 :00 every 6 Medical (six) Branch hours as needed for Pain (scale 4-6) for up to 7 days. Indication s: acute pain HYDROcodone 2019-11 No 4647 1{tbl} Take 1 U nivers -acetaminop 0-27 11-04 tablet by it y of hen 5-325 00:00: 05:59 mouth [place] mg tablet 00 :00 every 6 Medical (six) Branch hours as needed for Pain (scale 4-6) for up to 7 days. Indication s: acute pain HYDROcodone 2019-11 No 4647 1{tbl} Take 1 U nivers -acetaminop 0-27 11-04 tablet by it y of hen 5-325 00:00: 05:59 mouth [place] mg tablet 00 :00 every 6 Medical (six) Branch hours as needed for Pain (scale 4-6) for up to 7 days. Indication s: acute pain HYDROcodone 2019-11 No 4647 1{tbl} Take 1 U nivers -acetaminop 0-27 11-04 tablet by it y of hen 5-325 00:00: 00:00 mouth [place] mg tablet 00 :00 every 6 Medical (six) Branch hours as needed for Pain (scale 4-6) for up to 7 days. Indication s: acute pain proMETHazin 2019-11- No 25mg 25 mg, IV Univers e 0-18 10-18 Piggyback, ity of (PHENERGAN) 11:00: 09:56 ONCE, 1 [place] 25 mg in 00 :00 dose, [facility] NaCl 0.9% 09/01/20 Branch (NS) 50 mL at 0600, piggyback 50 mL morpHINE 2019-11- No 4mg 4 mg, Slow Un thor injection 4 0-18 10-18 IV Push, ity of mg 11:00: 09:55 ONCE, 1 [place] 00 :00 dose, [place] [facility] 09/01/20 Branch at 0600, STAT iohexol 2019-11- No 120mL 120 mL, Unive rs (OMNIPAQUE 0-18 10-18 Intravenou it y of 350 08:15: 07:56 s, ONCE, 1 [place] BULK-100 00 :00 dose, [facility] mL) 09/01/20 Branch injection at 0315, 120 mL Routine NaCl 0.9% 2019-11 No 1000mL at 999 Uni vers (NS) bolus 0-18 10-18 mL/hr, ity of infusion 08:00: 09:54 1,000 mL, [place] 1,000 mL 00 :00 IV Medical Infusion, Branch ONCE, 1 dose, [place] 09/01/20 at 0300, STAT diphenhydrA 2019-11 No 25mg 25 mg, Uni vers MINE 0-18 10-18 Slow IV ity of (BENADRYL) 08:00: 07:20 Push, [place] injection 00 :00 ONCE, 1 Medical 25 mg dose, [place] Branch 09/01/20 at 0300, STAT proMETHazin 2019-11- No 25mg 25 mg, IV Univers e 0-18 10-18 Piggyback, ity of (PHENERGAN) 08:00: 08:00 ONCE, 1 [place] 25 mg in 00 :00 dose, [facility] NaCl 0.9% 09/01/20 Branch (NS) 50 mL at 0300, piggyback 50 mL morpHINE 2019-11- No 4mg 4 mg, Slow Un thor injection 4 0-18 10-18 IV Push, ity of mg 08:00: 07:22 ONCE, 1 [place] 00 :00 dose, [facility] 09/01/20 Branch at 0300, STAT iohexol 2019-11 2020- No 60mL 60 mL, Univers (OMNIPAQUE 0-10 10-10 Intravenou it y of 350 BULK-75 01:45: 01:45 s, ONCE, 1 [place] mL) 00 :00 dose, Fri Medical injection 08/23/20 at Bran ch 60 mL 2045, Routine diphenhydrA 2019-11- No 12.5mg 12.5 mg, Univers MINE 0-10 10-09 Slow IV ity of (BENADRYL) 00:00: 23:44 Push, [place] injection 00 :00 ONCE, 1 Medical 12.5 mg dose, Fri [place] 08/23/20 at 1900, STAT morpHINE 2019-11- No 4mg 4 mg, Slow Un thor injection 4 0-10 10-09 IV Push, ity of mg 00:00: 23:43 ONCE, 1 [place] 00 :00 dose, [facility] [place] [facility] Medical 08/23/20 at Branch 1900, STAT NaCl 0.9% 2019-11- No 1000mL at 999 Uni vers (NS) bolus 0-09 10-10 mL/hr, ity of infusion 23:45: 00:00 1,000 mL, [place] 1,000 mL 00 :00 IV Medical Infusion, [place] ONCE, 1 dose, [facility] [place] [facility] 08/23/20 at 1845, STAT ALPRAZolam 2019-11 Yes 2mg Take 2 mg Un thor (XANAX) 2 0-06 by mouth 2 ity of mg tablet 16:20: (two) [place] 37 times Medical daily. Branch dextroamphe 2019-11 Yes 30mg Take 30 mg Univers tamine-amph 0-06 by mouth 2 it y of etamine 16:20: (two) [place] (ADDERALL) 37 times Medical 30 mg daily. Branch tablet Pantoprazol 2019-11 Yes 40mg Take 40 mg Univers e 0-06 by mouth 2 ity of (PROTONIX) 16:20: (two) [place] 40 mg 37 times Medical delayed-rel daily. Branch ease suspension ALPRAZolam 2019-11 Yes 2mg Take 2 mg Un thor (XANAX) 2 0-06 by mouth 2 ity of mg tablet 16:20: (two) [place] 37 times Medical daily. Branch dextroamphe 2019-11 Yes 30mg Take 30 mg Univers tamine-amph 0-06 by mouth 2 it y of etamine 16:20: (two) [place] (ADDERALL) 37 times Medical 30 mg daily. Branch tablet Pantoprazol 2020-1 Yes 40mg Take 40 mg Univers e 0-06 by mouth 2 ity of (PROTONIX) 16:20: (two) [place] 40 mg 37 times Medical delayed-rel daily. Branch ease suspension ALPRAZolam 2020-1 Yes 2mg Take 2 mg Un thor (XANAX) 2 0-06 by mouth 2 ity of mg tablet 16:20: (two) [place] 37 times Medical daily. Branch dextroamphe 2020- Yes 30mg Take 30 mg Univers tamine-amph 0-06 by mouth 2 it y of etamine 16:20: (two) [place] (ADDERALL) 37 times Medical 30 mg daily. Branch tablet Pantoprazol 2020- Yes 40mg Take 40 mg Univers e 0-06 by mouth 2 ity of (PROTONIX) 16:20: (two) [place] 40 mg 37 times Medical delayed-rel daily. Branch ease suspension ALPRAZolam 2020-1 Yes 2mg Take 2 mg Un thor (XANAX) 2 0-06 by mouth 2 ity of mg tablet 16:20: (two) [place] 37 times Medical daily. Branch dextroamphe 2020-1 Yes 30mg Take 30 mg Univers tamine-amph 0-06 by mouth 2 it y of etamine 16:20: (two) [place] (ADDERALL) 37 times Medical 30 mg daily. Branch tablet Pantoprazol 2020-1 Yes 40mg Take 40 mg Univers e 0-06 by mouth 2 ity of (PROTONIX) 16:20: (two) [place] 40 mg 37 times Medical delayed-rel daily. Branch ease suspension ALPRAZolam 2020-1 Yes 2mg Take 2 mg Un thor (XANAX) 2 0-06 by mouth 2 ity of mg tablet 16:20: (two) [place] 37 times Medical daily. Branch dextroamphe 2020-1 Yes 30mg Take 30 mg Univers tamine-amph 0-06 by mouth 2 it y of etamine 16:20: (two) [place] (ADDERALL) 37 times Medical 30 mg daily. Branch tablet Pantoprazol 2020-1 Yes 40mg Take 40 mg Univers e 0-06 by mouth 2 ity of (PROTONIX) 16:20: (two) [place] 40 mg 37 times Medical delayed-rel daily. Branch ease suspension ALPRAZolam 2019-11 Yes 2mg Take 2 mg Un thor (XANAX) 2 0-06 by mouth 2 ity of mg tablet 16:20: (two) [place] 37 times Medical daily. Branch dextroamphe 2019- Yes 30mg Take 30 mg Univers tamine-amph 0-06 by mouth 2 it y of etamine 16:20: (two) [place] (ADDERALL) 37 times Medical 30 mg daily. Branch tablet Pantoprazol 2019-11 Yes 40mg Take 40 mg Univers e 0-06 by mouth 2 ity of (PROTONIX) 16:20: (two) [place] 40 mg 37 times Medical delayed-rel daily. Branch ease suspension ALPRAZolam 2019-11 Yes 2mg Take 2 mg Un thor (XANAX) 2 0-06 by mouth 2 ity of mg tablet 16:20: (two) [place] 37 times Medical daily. Branch dextroamphe 2019- Yes 30mg Take 30 mg Univers tamine-amph 0-06 by mouth 2 it y of etamine 16:20: (two) [place] (ADDERALL) 37 times Medical 30 mg daily. Branch tablet Pantoprazol 2019-11 Yes 40mg Take 40 mg Univers e 0-06 by mouth 2 ity of (PROTONIX) 16:20: (two) [place] 40 mg 37 times Medical delayed-rel daily. Branch ease suspension proMETHazin 2019-11 2020- No 25mg 25 mg, IV Univers e 0-04 10-04 Piggyback, ity of (PHENERGAN) 04:15: 04:15 ONCE, 1 [place] 25 mg in 00 :00 dose, Sat Medica l NaCl 0.9% 08/17/20 at [facility] ch (NS) 50 mL 2315, 50 piggyback mL morpHINE 2019-11- No 4mg 4 mg, Slow Un thor injection 4 0-04 10-04 IV Push, ity of mg 04:15: 03:25 ONCE, 1 [place] 00 :00 dose, Sat Medical 08/17/20 at Branch 2315, STAT NaCl 0.9% 2019-11 2020- No 500mL at 999 Univ ers (NS) bolus 0-04 10-04 mL/hr, 500 it y of infusion 04:15: 05:26 mL, IV [place] 500 mL 00 :00 Infusion, Medical ONCE, 1 Branch dose, 08/17/20 at 2315, STAT iohexol 2019-11 2020- No 119mL 119 mL, Unive rs (OMNIPAQUE 008-18 Intravenou it y of 350 02:19: 02:19 s, ONCE, 1 [place] BULK-150 00 :00 dose, Sat Medica l mL) 08/17/20 at Branch injection 0, 119 mL Routine NaCl 0.9% 2019-11 Yes 1000mL at 999 Univ ers (NS) IV 0-04 mL/hr, ity of infusion 02:15: Intravenou [place] 1,000 mL 00 s, Medical CONTINUOUS Branch , Starting 08/17/20 at 211, Until Discontinu ed, Routine proMETHazin 2019-11- No 25mg 25 mg, IV Univers e 0-08-18 Piggyback, ity of (PHENERGAN) 02:15: 01:24 ONCE, 1 [place] 25 mg in 00 :00 dose, Sat Medica l NaCl 0.9% 08/17/20 at [facility] ch (NS) 50 mL 2114, 50 piggyback mL morpHINE 2019-11- No 4mg 4 mg, Slow Un thor injection 4 08-18 IV Push, ity of mg 02:15: 01:24 ONCE, 1 [place] 00 :00 dose, [facility] 08/17/20 at Branch 2115, STAT diphenhydrA 2019-11 2020- No 25mg 25 mg, Uni vers MINE 0-08-18 Slow IV ity of (BENADRYL) 02:15: 01:24 Push, [place] injection 00 :00 ONCE, 1 Medical 25 mg dose, Sat Branch 08/17/20 at 2115, STAT proMETHazin 2019- Yes [id number] 25mg Take 1 Univers e 25 mg 0-03 tablet by ity of tablet 00:00: mouth [place] 00 every 6 Medical (six) Branch hours as needed for Nausea and Vomiting (N/V). proMETHazin 2019- Yes [id number] 25mg Take 1 Univers e 25 mg 0-03 tablet by ity of tablet 00:00: mouth [place] 00 every 6 Medical (six) Branch hours as needed for Nausea and Vomiting (N/V). proMETHazin 2020-1 Yes [id number] 25mg Take 1 Univers e 25 mg 0-03 tablet by ity of tablet 00:00: mouth [place] 00 every 6 Medical (six) Branch hours as needed for Nausea and Vomiting (N/V). proMETHazin 2020-1 Yes [id number] 25mg Take 1 Univers e 25 mg 0-03 tablet by ity of tablet 00:00: mouth [place] 00 every 6 Medical (six) Branch hours as needed for Nausea and Vomiting (N/V). proMETHazin 2019- Yes [id number] 25mg Take 1 Univers e 25 mg 0-03 tablet by ity of tablet 00:00: mouth [place] 00 every 6 Medical (six) Branch hours as needed for Nausea and Vomiting (N/V). proMETHazin 2019- Yes [id number] 25mg Take 1 Univers e 25 mg 0-03 tablet by ity of tablet 00:00: mouth [place] 00 every 6 Medical (six) Branch hours as needed for Nausea and Vomiting (N/V). proMETHazin 2019- Yes [id number] 25mg Take 1 Univers e 25 mg 0-03 tablet by ity of tablet 00:00: mouth [place] 00 every 6 Medical (six) Branch hours as needed for Nausea and Vomiting (N/V). proMETHazin 2019- Yes [id number] 25mg Take 1 Univers e 25 mg 0-03 tablet by ity of tablet 00:00: mouth [place] 00 every 6 Medical (six) Branch hours as needed for Nausea and Vomiting (N/V). proMETHazin 2019-1 Yes [id number] 25mg Take 1 Univers e 25 mg 0-03 tablet by ity of tablet 00:00: mouth [place] 00 every 6 Medical (six) Branch hours as needed for Nausea and Vomiting (N/V). proMETHazin 2020-1 Yes [id number] 25mg Take 1 Univers e 25 mg 0-03 tablet by ity of tablet 00:00: mouth [place] 00 every 6 Medical (six) Branch hours as needed for Nausea and Vomiting (N/V). proMETHazin 2020-1 Yes [id number] 25mg Take 1 Univers e 25 mg 0-03 tablet by ity of tablet 00:00: mouth [place] 00 every 6 Medical (six) Branch hours as needed for Nausea and Vomiting (N/V). proMETHazin 2020-1 Yes [id number] 25mg Take 1 Univers e 25 mg 0-03 tablet by ity of tablet 00:00: mouth [place] 00 every 6 Medical (six) Branch hours as needed for Nausea and Vomiting (N/V). proMETHazin 2019- Yes [id number] 25mg Take 1 Univers e 25 mg 0-03 tablet by ity of tablet 00:00: mouth [place] 00 every 6 Medical (six) Branch hours as needed for Nausea and Vomiting (N/V). proMETHazin 2019-11 Yes [id number] 25mg Take 1 Univers e 25 mg 0-03 tablet by ity of tablet 00:00: mouth [place] 00 every 6 Medical (six) Branch hours as needed for Nausea and Vomiting (N/V). proMETHazin 2019-11 Yes [id number] 25mg Take 1 Univers e 25 mg 0-03 tablet by ity of tablet 00:00: mouth [place] 00 every 6 Medical (six) Branch hours as needed for Nausea and Vomiting (N/V). proMETHazin 2019-11 Yes [id number] 25mg Take 1 Univers e 25 mg 0-03 tablet by ity of tablet 00:00: mouth [place] 00 every 6 Medical (six) Branch hours as needed for Nausea and Vomiting (N/V). proMETHazin 2019-11 Yes [id number] 25mg Take 1 Univers e 25 mg 0-03 tablet by ity of tablet 00:00: mouth [place] 00 every 6 Medical (six) Branch hours as needed for Nausea and Vomiting (N/V). proMETHazin 2019-11 Yes [id number] 25mg Take 1 Univers e 25 mg 0-03 tablet by ity of tablet 00:00: mouth [place] 00 every 6 Medical (six) Branch hours as needed for Nausea and Vomiting (N/V). proMETHazin 2019-11 Yes [id number] 25mg Take 1 Univers e 25 mg 0-03 tablet by ity of tablet 00:00: mouth [place] 00 every 6 Medical (six) Branch hours as needed for Nausea and Vomiting (N/V). proMETHazin 2019-11 2020- No [id number] 25mg Take 1 Univers e 25 mg 0-03 11-04 tablet by ity of tablet 00:00: 00:00 mouth [place] 00 :00 every 6 Medical (six) Branch hours as needed for Nausea and Vomiting (N/V). ALPRAZolam 0 Yes 2mg Take 2 mg Un thor (XANAX) 2 9-17 by mouth 2 ity of mg tablet 22:47: (two) [place] 13 times Medical daily. Branch dextroamphe 2020-0 Yes 30mg Take 30 mg Univers tamine-amph 9-17 by mouth 2 it y of etamine 22:47: (two) [place] (ADDERALL) 13 times Medical 30 mg daily. Branch tablet Pantoprazol 2020-0 Yes 40mg Take 40 mg Univers e 9-17 by mouth 2 ity of (PROTONIX) 22:47: (two) [place] 40 mg 13 times Medical delayed-rel daily. Branch ease suspension ALPRAZolam 2020-0 Yes 2mg Take 2 mg Un thor (XANAX) 2 9-17 by mouth 2 ity of mg tablet 22:47: (two) [place] 13 times Medical daily. Branch dextroamphe 2020-0 Yes 30mg Take 30 mg Univers tamine-amph 9-17 by mouth 2 it y of etamine 22:47: (two) [place] (ADDERALL) 13 times Medical 30 mg daily. Branch tablet Pantoprazol 2020-0 Yes 40mg Take 40 mg Univers e 9-17 by mouth 2 ity of (PROTONIX) 22:47: (two) [place] 40 mg 13 times Medical delayed-rel daily. Branch ease suspension ALPRAZolam 2020-0 Yes 2mg Take 2 mg Un thor (XANAX) 2 9-17 by mouth 2 ity of mg tablet 22:47: (two) [place] 13 times Medical daily. Branch dextroamphe 2020-0 Yes 30mg Take 30 mg Univers tamine-amph 9-17 by mouth 2 it y of etamine 22:47: (two) [place] (ADDERALL) 13 times Medical 30 mg daily. Branch tablet Pantoprazol 2020-0 Yes 40mg Take 40 mg Univers e 9-17 by mouth 2 ity of (PROTONIX) 22:47: (two) [place] 40 mg 13 times Medical delayed-rel daily. Branch ease suspension ALPRAZolam 2020-0 Yes 2mg Take 2 mg Un thor (XANAX) 2 9-17 by mouth 2 ity of mg tablet 22:47: (two) [place] 13 times Medical daily. Branch dextroamphe 2020-0 Yes 30mg Take 30 mg Univers tamine-amph 9-17 by mouth 2 it y of etamine 22:47: (two) [place] (ADDERALL) 13 times Medical 30 mg daily. Branch tablet Pantoprazol 2020-0 Yes 40mg Take 40 mg Univers e 9-17 by mouth 2 ity of (PROTONIX) 22:47: (two) [place] 40 mg 13 times Medical delayed-rel daily. Branch ease suspension ALPRAZolam 2020-0 Yes 2mg Take 2 mg Un thor (XANAX) 2 9-17 by mouth 2 ity of mg tablet 22:47: (two) [place] 13 times Medical daily. Branch dextroamphe 2020-0 Yes 30mg Take 30 mg Univers tamine-amph 9-17 by mouth 2 it y of etamine 22:47: (two) [place] (ADDERALL) 13 times Medical 30 mg daily. Branch tablet Pantoprazol 2020-0 Yes 40mg Take 40 mg [facility] e 9-17 by mouth 2 ity of (PROTONIX) 22:47: (two) [place] 40 mg 13 times Medical delayed-rel daily. Branch ease suspension ALPRAZolam 2020-0 Yes 2mg Take 2 mg Un thor (XANAX) 2 9-17 by mouth 2 ity of mg tablet 22:47: (two) [place] 13 times Medical daily. Branch dextroamphe 2020-0 Yes 30mg Take 30 mg [facility] tamine-amph 9-17 by mouth 2 it y of etamine 22:47: (two) [place] (ADDERALL) 13 times Medical 30 mg daily. Branch tablet Pantoprazol 2020-0 Yes 40mg Take 40 mg [facility] e 9-17 by mouth 2 ity of (PROTONIX) 22:47: (two) [place] 40 mg 13 times Medical delayed-rel daily. Branch ease suspension ALPRAZolam 2020-0 Yes 2mg Take 2 mg Un thor (XANAX) 2 9-17 by mouth 2 ity of mg tablet 22:47: (two) [place] 13 times Medical daily. Branch dextroamphe 2020-0 Yes 30mg Take 30 mg [facility] tamine-amph 9-17 by mouth 2 it y of etamine 22:47: (two) [place] (ADDERALL) 13 times Medical 30 mg daily. Branch tablet Pantoprazol 2020-0 Yes 40mg Take 40 mg [facility] e 9-17 by mouth 2 ity of (PROTONIX) 22:47: (two) [place] 40 mg 13 times Medical delayed-rel daily. Branch ease suspension HYDROmorpho 2020-0 Yes 2mg 2 mg, Unive rs ne 9-17 Oral, ity of (DILAUDID) 12:00: Q6HPRN[place] [facility] at 0700, Until Discontinu ed, Routine, Pain (scale 7-10) ibuprofen 2020-0 Yes [id number] 600mg Take 1 [facility] 600 mg 9-17 tablet by ity of tablet 00:00: mouth [place] 00 every 6 Medical (six) Branch hours. loperamide 2020-0 Yes [id number] 2mg Take 1 [facility] 2 mg 9-17 capsule by ity of capsule 00:00: mouth [place] 00 daily. Medical Branch methocarbam 2020-0 Yes [id number] 500mg Take 1 [facility] oL 500 mg 9-17 tablet by ity o f tablet 00:00: mouth 4 [place] 00 (four) Medical times Branch daily. ibuprofen 2020-0 Yes [id number] 600mg Take 1 [facility] 600 mg 9-17 tablet by ity of tablet 00:00: mouth [place] 00 every 6 Medical (six) Branch hours. loperamide 2020-0 Yes [id number] 2mg Take 1 [facility] 2 mg 9-17 capsule by ity of capsule 00:00: mouth [place] 00 daily. Medical Branch methocarbam 2020-0 Yes [id number] 500mg Take 1 [facility] oL 500 mg 9-17 tablet by ity o f tablet 00:00: mouth 4 00 (four) Medical times Branch daily. ibuprofen 2020-0 Yes [id number] 600mg Take 1 [facility] 600 mg 9-17 tablet by ity of tablet 00:00: mouth [place] 00 every 6 Medical (six) Branch hours. loperamide 2020-0 Yes [id number] 2mg Take 1 [facility] 2 mg 9-17 capsule by ity of capsule 00:00: mouth [place] 00 daily. Medical Branch methocarbam 2020-0 Yes [id number] 500mg Take 1 [facility] oL 500 mg 9-17 tablet by ity o f tablet 00:00: mouth 4 [place] 00 (four) Medical times Branch daily. ibuprofen 2020-0 Yes [id number] 600mg Take 1 [facility] 600 mg 9-17 tablet by ity of tablet 00:00: mouth [place] 00 every 6 Medical (six) Branch hours. loperamide 2020-0 Yes [id number] 2mg Take 1 [facility] 2 mg 9-17 capsule by ity of capsule 00:00: mouth [place] 00 daily. Medical Branch methocarbam 2020-0 Yes [id number] 500mg Take 1 [facility] oL 500 mg 9-17 tablet by ity o f tablet 00:00: mouth 4 (four) Medical times Branch daily. ibuprofen 2020-0 Yes [id number] 600mg Take 1 [facility] 600 mg 9-17 tablet by ity of tablet 00:00: mouth [place] 00 every 6 Medical (six) Branch hours. loperamide 2020-0 Yes [id number] 2mg Take 1 [facility] 2 mg 9-17 capsule by ity of capsule 00:00: mouth [place] 00 daily. Medical Branch methocarbam 2020-0 Yes [id number] 500mg Take 1 [facility] oL 500 mg 9-17 tablet by ity o f tablet 00:00: mouth (four) Medical times Branch daily. ibuprofen 2020-0 Yes [id number] 600mg Take 1 [facility] 600 mg 9-17 tablet by ity of tablet 00:00: mouth [place] 00 every 6 Medical (six) Branch hours. loperamide 2020-0 Yes [id number] 2mg Take 1 [facility] 2 mg 9-17 capsule by ity of capsule 00:00: mouth [place] 00 daily. Medical Branch methocarbam 2020-0 Yes [id number] 500mg Take 1 [facility] oL 500 mg 9-17 tablet by ity o f tablet 00:00: mouth (four) Medical times Branch daily. ibuprofen 2020-0 Yes [id number] 600mg Take 1 [facility] 600 mg 9-17 tablet by ity of tablet 00:00: mouth [place] 00 every 6 Medical (six) Branch hours. loperamide 2020-0 Yes [id number] 2mg Take 1 [facility] 2 mg 9-17 capsule by ity of capsule 00:00: mouth [place] 00 daily. Medical Branch methocarbam 2020-0 Yes [id number] 500mg Take 1 [facility] oL 500 mg 9-17 tablet by ity o f tablet 00:00: mouth (four) Medical times Branch daily. ibuprofen 2020-0 Yes [id number] 600mg Take 1 [facility] 600 mg 9-17 tablet by ity of tablet 00:00: mouth [place] 00 every 6 Medical (six) Branch hours. loperamide 2020-0 Yes [id number] 2mg Take 1 [facility] 2 mg 9-17 capsule by ity of capsule 00:00: mouth [place] 00 daily. Medical Branch methocarbam 2020-0 Yes [id number] 500mg Take 1 [facility] oL 500 mg 9-17 tablet by ity o f tablet 00:00: mouth (four) Medical times Branch daily. ibuprofen 2020-0 Yes [id number] 600mg Take 1 [facility] 600 mg 9-17 tablet by ity of tablet 00:00: mouth [place] 00 every 6 Medical (six) Branch hours. loperamide 2020-0 Yes [id number] 2mg Take 1 [facility] 2 mg 9-17 capsule by ity of capsule 00:00: mouth [place] 00 daily. Medical Branch methocarbam 2020-0 Yes [id number] 500mg Take 1 [facility] oL 500 mg 9-17 tablet by ity o f tablet 00:00: mouth (four) Medical times Branch daily. ibuprofen 2020-0 Yes [id number] 600mg Take 1 [facility] 600 mg 9-17 tablet by ity of tablet 00:00: mouth 00 every 6 Medical (six) Branch hours. loperamide 2020-0 Yes [id number] 2mg Take 1 [facility] 2 mg 9-17 capsule by ity of capsule 00:00: mouth 00 daily. Medical Branch methocarbam 2020-0 Yes [id number] 500mg Take 1 [facility] oL 500 mg 9-17 tablet by ity o f tablet 00:00: mouth (four) Medical times Branch daily. ibuprofen 2020-0 Yes [id number] 600mg Take 1 [facility] 600 mg 9-17 tablet by ity of tablet 00:00: mouth 00 every 6 Medical (six) Branch hours. loperamide 2020-0 Yes [id number] 2mg Take 1 [facility] 2 mg 9-17 capsule by ity of capsule 00:00: mouth 00 daily. Medical Branch methocarbam 2020-0 Yes [id number] 500mg Take 1 [facility] oL 500 mg 9-17 tablet by ity o f tablet 00:00: mouth (four) Medical times Branch daily. ibuprofen 2020-0 Yes [id number] 600mg Take 1 [facility] 600 mg 9-17 tablet by ity of tablet 00:00: mouth [place] 00 every 6 Medical (six) Branch hours. loperamide 2020-0 Yes [id number] 2mg Take 1 [facility] 2 mg 9-17 capsule by ity of capsule 00:00: mouth 00 daily. Medical Branch methocarbam 2020-0 Yes [id number] 500mg Take 1 [facility] oL 500 mg 9-17 tablet by ity o f tablet 00:00: mouth (four) Medical times Branch daily. ibuprofen 2020-0 Yes [id number] 600mg Take 1 [facility] 600 mg 9-17 tablet by ity of tablet 00:00: mouth [place] 00 every 6 Medical (six) Branch hours. loperamide 2020-0 Yes [id number] 2mg Take 1 [facility] 2 mg 9-17 capsule by ity of capsule 00:00: mouth [place] 00 daily. Medical Branch methocarbam 2020-0 Yes [id number] 500mg Take 1 [facility] oL 500 mg 9-17 tablet by ity o f tablet 00:00: mouth (four) Medical times Branch daily. ibuprofen 2020-0 Yes [id number] 600mg Take 1 [facility] 600 mg 9-17 tablet by ity of tablet 00:00: mouth [place] 00 every 6 Medical (six) Branch hours. loperamide 2020-0 Yes [id number] 2mg Take 1 [facility] 2 mg 9-17 capsule by ity of capsule 00:00: mouth 00 daily. Medical Branch methocarbam 2020-0 Yes [id number] 500mg Take 1 [facility] oL 500 mg 9-17 tablet by ity o f tablet 00:00: mouth (four) Medical times Branch daily. ibuprofen 2020-0 Yes [id number] 600mg Take 1 [facility] 600 mg 9-17 tablet by ity of tablet 00:00: mouth [place] 00 every 6 Medical (six) Branch hours. loperamide 2020-0 Yes [id number] 2mg Take 1 [facility] 2 mg 9-17 capsule by ity of capsule 00:00: mouth [place] 00 daily. Medical Branch methocarbam 2020-0 Yes [id number] 500mg Take 1 [facility] oL 500 mg 9-17 tablet by ity o f tablet 00:00: mouth (four) Medical times Branch daily. ibuprofen 2020-0 Yes [id number] 600mg Take 1 [facility] 600 mg 9-17 tablet by ity of tablet 00:00: mouth [place] 00 every 6 Medical (six) Branch hours. loperamide 2020-0 Yes [id number] 2mg Take 1 [facility] 2 mg 9-17 capsule by ity of capsule 00:00: mouth [place] 00 daily. Medical Branch methocarbam 2020-0 Yes [id number] 500mg Take 1 [facility] oL 500 mg 9-17 tablet by ity o f tablet 00:00: mouth (four) Medical times Branch daily. ibuprofen 2020-0 Yes [id number] 600mg Take 1 [facility] 600 mg 9-17 tablet by ity of tablet 00:00: mouth [place] 00 every 6 Medical (six) Branch hours. loperamide 2020-0 Yes [id number] 2mg Take 1 [facility] 2 mg 9-17 capsule by ity of capsule 00:00: mouth 00 daily. Medical Branch methocarbam 2020-0 Yes [id number] 500mg Take 1 [facility] oL 500 mg 9-17 tablet by ity o f tablet 00:00: mouth (four) Medical times Branch daily. ibuprofen 2020-0 Yes [id number] 600mg Take 1 [facility] 600 mg 9-17 tablet by ity of tablet 00:00: mouth 00 every 6 Medical (six) Branch hours. loperamide 2020-0 Yes [id number] 2mg Take 1 [facility] 2 mg 9-17 capsule by ity of capsule 00:00: mouth 00 daily. Medical Branch methocarbam 2020-0 Yes [id number] 500mg Take 1 [facility] oL 500 mg 9-17 tablet by ity o f tablet 00:00: mouth (four) Medical times Branch daily. ibuprofen 2020-0 Yes [id number] 600mg Take 1 [facility] 600 mg 9-17 tablet by ity of tablet 00:00: mouth 00 every 6 Medical (six) Branch hours. loperamide 2020-0 Yes [id number] 2mg Take 1 [facility] 2 mg 9-17 capsule by ity of capsule 00:00: mouth 00 daily. Medical Branch methocarbam 2020-0 Yes [id number] 500mg Take 1 [facility] oL 500 mg 9-17 tablet by ity o f tablet 00:00: mouth (four) Medical times Branch daily. ibuprofen 2020-0 Yes [id number] 600mg Take 1 [facility] 600 mg 9-17 tablet by ity of tablet 00:00: mouth [place] 00 every 6 Medical (six) Branch hours. loperamide 2020-0 Yes [id number] 2mg Take 1 [facility] 2 mg 9-17 capsule by ity of capsule 00:00: mouth 00 daily. Medical Branch methocarbam 2020-0 Yes [id number] 500mg Take 1 [facility] oL 500 mg 9-17 tablet by ity o f tablet 00:00: mouth (four) Medical times Branch daily. ibuprofen 2020-0 Yes [id number] 600mg Take 1 [facility] 600 mg 9-17 tablet by ity of tablet 00:00: mouth [place] 00 every 6 Medical (six) Branch hours. loperamide 2020-0 Yes [id number] 2mg Take 1 [facility] 2 mg 9-17 capsule by ity of capsule 00:00: mouth [place] 00 daily. Medical Branch methocarbam 2020-0 Yes [id number] 500mg Take 1 [facility] oL 500 mg 9-17 tablet by ity o f tablet 00:00: mouth (four) Medical times Branch daily. ibuprofen 2020-0 Yes [id number] 600mg Take 1 [facility] 600 mg 9-17 tablet by ity of tablet 00:00: mouth [place] 00 every 6 Medical (six) Branch hours. loperamide 2020-0 Yes [id number] 2mg Take 1 [facility] 2 mg 9-17 capsule by ity of capsule 00:00: mouth [place] 00 daily. Medical Branch methocarbam 2020-0 Yes [id number] 500mg Take 1 [facility] oL 500 mg 9-17 tablet by ity o f tablet 00:00: mouth (four) Medical times Branch daily. ibuprofen 2020-0 Yes [id number] 600mg Take 1 [facility] 600 mg 9-17 tablet by ity of tablet 00:00: mouth [place] 00 every 6 Medical (six) Branch hours. loperamide 2020-0 Yes [id number] 2mg Take 1 [facility] 2 mg 9-17 capsule by ity of capsule 00:00: mouth [place] 00 daily. Medical Branch methocarbam 2020-0 Yes [id number] 500mg Take 1 [facility] oL 500 mg 9-17 tablet by ity o f tablet 00:00: mouth (four) Medical times Branch daily. ibuprofen 2020-0 Yes [id number] 600mg Take 1 [facility] 600 mg 9-17 tablet by ity of tablet 00:00: mouth [place] 00 every 6 Medical (six) Branch hours. loperamide 2020-0 Yes [id number] 2mg Take 1 [facility] 2 mg 9-17 capsule by ity of capsule 00:00: mouth [place] 00 daily. Medical Branch methocarbam 2020-0 Yes [id number] 500mg Take 1 [facility] oL 500 mg 9-17 tablet by ity o f tablet 00:00: mouth (four) Medical times Branch daily. ibuprofen 2020-0 Yes [id number] 600mg Take 1 [facility] 600 mg 9-17 tablet by ity of tablet 00:00: mouth [place] 00 every 6 Medical (six) Branch hours. loperamide 2020-0 Yes [id number] 2mg Take 1 [facility] 2 mg 9-17 capsule by ity of capsule 00:00: mouth [place] 00 daily. Medical Branch methocarbam 2020-0 Yes [id number] 500mg Take 1 [facility] oL 500 mg 9-17 tablet by ity o f tablet 00:00: mouth 4 [place] 00 (four) Medical times Branch daily. ibuprofen 2020-0 Yes [id number] 600mg Take 1 [facility] 600 mg 9-17 tablet by ity of tablet 00:00: mouth [place] 00 every 6 Medical (six) Branch hours. methocarbam 2020-0 Yes [id number] 500mg Take 1 [facility] oL 500 mg 9-17 tablet by ity o f tablet 00:00: mouth 4 [place] (four) Medical times Branch daily. ibuprofen 2020-0 Yes [id number] 600mg Take 1 [facility] 600 mg 9-17 tablet by ity of tablet 00:00: mouth [place] 00 every 6 Medical (six) Branch hours. methocarbam 2020-0 Yes [id number] 500mg Take 1 [facility] oL 500 mg 9-17 tablet by ity o f tablet 00:00: mouth [address] [place] [address] 00 (four) Medical times Branch daily. ibuprofen 2020-0 Yes [id number] 600mg Take 1 [facility] 600 mg 9-17 tablet by ity of tablet 00:00: mouth [place] 00 every 6 Medical (six) Branch hours. methocarbam 2020-0 Yes [id number] 500mg Take 1 [facility] oL 500 mg 9-17 tablet by ity o f tablet 00:00: mouth [address] [place] [address] 00 (four) Medical times Branch daily. ibuprofen 2020-0 Yes [id number] 600mg Take 1 [facility] 600 mg 9-17 tablet by ity of tablet 00:00: mouth [place] 00 every 6 Medical (six) Branch hours. methocarbam 2020-0 Yes [id number] 500mg Take 1 [facility] oL 500 mg 9-17 tablet by ity o f tablet 00:00: mouth 4 [place] 00 (four) Medical times Branch daily. acetaminoph 2020-0 2020- No [id number] 650mg Take 2 [facility] en 325 mg 9-17 09-18 tablets by ity of tablet 00:00: 04:59 mouth [place] 00 :00 every 6 Medical (six) Branch hours. acetaminoph 2020-0 2020- No [id number] 650mg Take 2 [facility] en 325 mg 9-17 09-18 tablets by ity of tablet 00:00: 04:59 mouth [place] 00 :00 every 6 Medical (six) Branch hours. acetaminoph 2020- No [id number] 650mg Take 2 [facility] en 325 mg 9-17 09-18 tablets by ity of tablet 00:00: 04:59 mouth [place] 00 :00 every 6 Medical (six) Branch hours. acetaminoph 2020- No [id number] 650mg Take 2 [facility] en 325 mg 9-17 09-18 tablets by ity of tablet 00:00: 04:59 mouth [place] 00 :00 every 6 Medical (six) Branch hours. acetaminoph 2020- No [id number] 650mg Take 2 [facility] en 325 mg 9-17 09-18 tablets by ity of tablet 00:00: 04:59 mouth [place] 00 :00 every 6 Medical (six) Branch hours. acetaminoph 2020- No [id number] 650mg Take 2 [facility] en 325 mg 9-17 09-18 tablets by ity of tablet 00:00: 04:59 mouth [place] 00 :00 every 6 Medical (six) Branch hours. acetaminoph 2020- No [id number] 650mg Take 2 [facility] en 325 mg 9-17 09-18 tablets by ity of tablet 00:00: 04:59 mouth [place] 00 :00 every 6 Medical (six) Branch hours. acetaminoph 2020- No [id number] 650mg Take 2 [facility] en 325 mg 9-17 09-18 tablets by ity of tablet 00:00: 04:59 mouth [place] 00 :00 every 6 Medical (six) Branch hours. acetaminoph 2020- No [id number] 650mg Take 2 [facility] en 325 mg 9-17 09-18 tablets by ity of tablet 00:00: 04:59 mouth [place] 00 :00 every 6 Medical (six) Branch hours. acetaminoph 2020- No [id number] 650mg Take 2 [facility] en 325 mg 9-17 09-18 tablets by ity of tablet 00:00: 04:59 mouth [place] 00 :00 every 6 Medical (six) Branch hours. acetaminoph 2020- No [id number] 650mg Take 2 [facility] en 325 mg 9-17 09-18 tablets by ity of tablet 00:00: 04:59 mouth [place] 00 :00 every 6 Medical (six) Branch hours. acetaminoph 2020- No [id number] 650mg Take 2 [facility] en 325 mg 9-17 09-18 tablets by ity of tablet 00:00: 04:59 mouth [place] 00 :00 every 6 Medical (six) Branch hours. acetaminoph 2020- No [id number] 650mg Take 2 [facility] en 325 mg 9-17 09-18 tablets by ity of tablet 00:00: 04:59 mouth [place] 00 :00 every 6 Medical (six) Branch hours. acetaminoph 2020- No [id number] 650mg Take 2 [facility] en 325 mg 9-17 09-18 tablets by ity of tablet 00:00: 04:59 mouth [place] 00 :00 every 6 Medical (six) Branch hours. acetaminoph 2020- No [id number] 650mg Take 2 [facility] en 325 mg 9-17 09-18 tablets by ity of tablet 00:00: 04:59 mouth [place] 00 :00 every 6 Medical (six) Branch hours. acetaminoph 2020- No [id number] 650mg Take 2 [facility] en 325 mg 9-17 09-18 tablets by ity of tablet 00:00: 04:59 mouth [place] 00 :00 every 6 Medical (six) Branch hours. acetaminoph 2020- No [id number] 650mg Take 2 [facility] en 325 mg 9-17 09-18 tablets by ity of tablet 00:00: 04:59 mouth [place] 00 :00 every 6 Medical (six) Branch hours. acetaminoph 2020- No [id number] 650mg Take 2 [facility] en 325 mg 9-17 09-18 tablets by ity of tablet 00:00: 04:59 mouth [place] 00 :00 every 6 Medical (six) Branch hours. acetaminoph 2020- No [id number] 650mg Take 2 [facility] en 325 mg 9-17 09-18 tablets by ity of tablet 00:00: 04:59 mouth [place] 00 :00 every 6 Medical (six) Branch hours. acetaminoph 2020- No [id number] 650mg Take 2 [facility] en 325 mg 9-17 09-18 tablets by ity of tablet 00:00: 04:59 mouth [place] 00 :00 every 6 Medical (six) Branch hours. acetaminoph 2020- No [id number] 650mg Take 2 [facility] en 325 mg 9-17 09-18 tablets by ity of tablet 00:00: 04:59 mouth [place] 00 :00 every 6 Medical (six) Branch hours. acetaminoph 2020- No [id number] 650mg Take 2 [facility] en 325 mg 9-17 09-18 tablets by ity of tablet 00:00: 04:59 mouth [place] 00 :00 every 6 Medical (six) Branch hours. acetaminoph 2020- No [id number] 650mg Take 2 [facility] en 325 mg 9-17 09-18 tablets by ity of tablet 00:00: 04:59 mouth [place] 00 :00 every 6 Medical (six) Branch hours. acetaminoph 2020- No [id number] 650mg Take 2 [facility] en 325 mg 9-17 09-18 tablets by ity of tablet 00:00: 04:59 mouth [place] 00 :00 every 6 Medical (six) Branch hours. acetaminoph 2020- No [id number] 650mg Take 2 [facility] en 325 mg 9-17 09-18 tablets by ity of tablet 00:00: 04:59 mouth [place] 00 :00 every 6 Medical (six) Branch hours. acetaminoph 2020- No [id number] 650mg Take 2 [facility] en 325 mg 9-17 09-18 tablets by ity of tablet 00:00: 04:59 mouth [place] 00 :00 every 6 Medical (six) Branch hours. acetaminoph 2020- No [id number] 650mg Take 2 [facility] en 325 mg 9-17 09-18 tablets by ity of tablet 00:00: 04:59 mouth [place] 00 :00 every 6 Medical (six) Branch hours. acetaminoph 2019-2020- No [id number] 650mg Take 2 [facility] en 325 mg 9-17 09-18 tablets by ity of tablet 00:00: 04:59 mouth [place] 00 :00 every 6 Medical (six) Branch hours. acetaminoph 20202020- No [id number] 650mg Take 2 [facility] en 325 mg 9-17 09-18 tablets by ity of tablet 00:00: 04:59 mouth [place] 00 :00 every 6 Medical (six) Branch hours. acetaminoph 2020- No [id number] 650mg Take 2 [facility] en 325 mg 9-17 09-18 tablets by ity of tablet 00:00: 04:59 mouth [place] 00 :00 every 6 Medical (six) Branch hours. acetaminoph 2020- No [id number] 650mg Take 2 [facility] en 325 mg 9-17 09-18 tablets by ity of tablet 00:00: 04:59 mouth [place] 00 :00 every 6 Medical (six) Branch hours. acetaminoph 2020- No [id number] 650mg Take 2 [facility] en 325 mg 9-17 09-18 tablets by ity of tablet 00:00: 04:59 mouth [place] 00 :00 every 6 Medical (six) Branch hours. acetaminoph 2020- No [id number] 650mg Take 2 [facility] en 325 mg 9-17 09-18 tablets by ity of tablet 00:00: 04:59 mouth [place] 00 :00 every 6 Medical (six) Branch hours. acetaminoph 2020- No [id number] 650mg Take 2 [facility] en 325 mg 9-17 09-18 tablets by ity of tablet 00:00: 04:59 mouth [place] 00 :00 every 6 Medical (six) Branch hours. acetaminoph 2020- No [id number] 650mg Take 2 [facility] en 325 mg 9-17 09-18 tablets by ity of tablet 00:00: 04:59 mouth [place] 00 :00 every 6 Medical (six) Branch hours. acetaminoph 2020- No [id number] 650mg Take 2 [facility] en 325 mg 9-17 09-18 tablets by ity of tablet 00:00: 04:59 mouth [place] 00 :00 every 6 Medical (six) Branch hours. acetaminoph 2020-2020- No [id number] 650mg Take 2 [facility] en 325 mg 9-17 09-18 tablets by ity of tablet 00:00: 04:59 mouth [place] 00 :00 every 6 Medical (six) Branch hours. acetaminoph 2020- No [id number] 650mg Take 2 [facility] en 325 mg 9-17 09-18 tablets by ity of tablet 00:00: 04:59 mouth [place] 00 :00 every 6 Medical (six) Branch hours. acetaminoph 2020- No [id number] 650mg Take 2 [facility] en 325 mg 9-17 09-18 tablets by ity of tablet 00:00: 04:59 mouth [place] 00 :00 every 6 Medical (six) Branch hours. acetaminoph 2020- No [id number] 650mg Take 2 [facility] en 325 mg 9-17 09-18 tablets by ity of tablet 00:00: 04:59 mouth [place] 00 :00 every 6 Medical (six) Branch hours. acetaminoph 2020- No [id number] 650mg Take 2 [facility] en 325 mg 9-17 09-18 tablets by ity of tablet 00:00: 04:59 mouth [place] 00 :00 every 6 Medical (six) Branch hours. acetaminoph 2020- No [id number] 650mg Take 2 [facility] en 325 mg 9-17 09-18 tablets by ity of tablet 00:00: 04:59 mouth [place] 00 :00 every 6 Medical (six) Branch hours. acetaminoph 2020- No [id number] 650mg Take 2 [facility] en 325 mg 9-17 09-18 tablets by ity of tablet 00:00: 04:59 mouth [place] 00 :00 every 6 Medical (six) Branch hours. acetaminoph 2019- No [id number] 650mg Take 2 [facility] en 325 mg 9-17 12-16 tablets by ity of tablet 00:00: 00:00 mouth [place] 00 :00 every 6 Medical (six) Branch hours. loperamide 2019-2019- No [id number] 2mg Take 1 [facility] 2 mg 9-17 11-04 capsule by ity of capsule 00:00: 00:00 mouth [place] 00 :00 daily. Medical Branch HYDROmorpho 2019-0 2020- No [id number] 2mg Take 1 Uni vers ne 2 mg 9-17 09-25 tablet by ity of tablet 00:00: 04:59 mouth [place] 00 :00 every 6 Medical (six) Branch hours as needed for Pain (scale 7-10) for up to 7 days. Indication s: acute pain HYDROmorpho 2020- 2020- No [id number] 2mg Take 1 [facility] vers ne 2 mg 9-17 09-25 tablet by ity of tablet 00:00: 04:59 mouth [place] 00 :00 every 6 Medical (six) Branch hours as needed for Pain (scale 7-10) for up to 7 days. Indication s: acute pain HYDROmorpho 2020-0 2020- No [id number] 2mg Take 1 [facility] vers ne 2 mg 08-01 tablet by ity of tablet 00:00: 04:59 mouth [place] 00 :00 every 6 Medical (six) Branch hours as needed for Pain (scale 7-10) for up to 7 days. Indication s: acute pain magnesium 2020-0 2020- No 4g 4 g, IV Univ ers sulfate in 07-31 Piggyback, it y of water 4 12:30: 14:55 ONCE, 1 [place] gram/50 mL 00 :00 dose, Wed Medi ryann (8 %) IV 07/31/20 at [facility] h Piggyback 4 0730, g Routine D5W 0.45% 2019-0 Yes IV [facility] NaCl 07-31 Infusion, ity of (1/2NS) 1 L 11:45: at 42 [place] + KCL 20 00 mL/hr, Medical mEq CONTINUOUS Branch , Starting Wed07/31/20 at 0645, Until Discontinu ed, Routine metoprolol 2020-0 Yes 25mg 25 mg, Unive rs tartrate 07-31 Oral, BID, ity o f (LOPRESSOR) 01:00: First dose [place] tablet 25 00 (after Medical mg last Branch modificati on) on Wed07/30/20 at 2000, Until Discontinu ed, Routine loperamide 2020-0 Yes 2mg 2 mg, Univer s (IMODIUM 07-30 Oral, ity of A-D) 14:00: DAILY, [place] capsule 2 00 First dose Medi ryann mg on Wed07/30/20 at 0900, Until Discontinu ed, Routine HYDROmorpho 2020-0 2020- No 2mg 2 mg, Univ ers ne 07-30 Oral, ity of (DILAUDID) 13:28: 11:54 Q4HPRN, [place] tablet 2 mg 43 :45 Starting Medi ryann Wed07/30/20 at 0828, Until Wed08/01/20 at 0654, Routine, Pain (scale 7-10) metoprolol 2020-0 2020- No 12.5mg 12.5 mg, Univers tartrate 07-30 Oral, BID, ity of (LOPRESSOR) 01:00: 13:29 First dose [place] half tablet 00 :36 (after Medica l 12.5 mg last Branch reorder) on Wed07/29/20 at 2000, Until Discontinu ed, Routine D5W 0.45% 2020-0 2020- No IV [facility] NaCl 07-2916 Infusion, ity of (1/2NS) 1 L 23:00: 11:38 at 100 [place] + KCL 20 00 :43 mL/hr, Medical mEq CONTINUOUS Branch , Starting Wed07/29/20 at 1800, Until Wed07/31/20 at 0638, Routine lactated 2020-0 2020- No 1000mL at 999 [facility] ers ringers IV 07-29-14 mL/hr, ity of infusion 22:30: 22:14 1,000 mL, [place] 1,000 mL 00 :00 Intravenou Medic al s, ONCE, 1 Branch dose, [facility] 07/29/20 at 1730, Routine ibuprofen 2020-0 Yes 600mg 600 mg, Univ ers (IBU) - Oral, Q6H ity of tablet 600 17:00: ABX, First [place] mg 00 dose on [facility] 07/29/20 at 1200, Until Discontinu ed, Routine NaCl 0.9% 2020-0 Yes 10mL 10 mL, Univer s (NS) -14 Slow IV ity of injection 15:59: Push, PRN, [place] 10 mL 00 Starting [facility] 07/29/20 at 1059, Until Discontinu ed, Routine, line maintenanc e lidocaine 2020-0 Yes 5mL 5 mL, Univers 1% (PF) 07-29 Subcutaneo ity of (XYLOCAINE) 15:59: us, PRN, [place] injection 5 00 Starting Medi ryann mL [facility] 07/29/20 at 1059, Until Discontinu ed, Routine, Local anesthesia pantoprazol 2020-0 Yes 40mg 40 mg, Univ ers e 9-14 Oral, ity of (PROTONIX) 14:00: DAILY, [place] EC tablet 00 First dose Medi ryann 40 mg on [facility] 07/29/20 at 0900, Until Discontinu ed, Routine acetaminoph 2020-0 Yes 650mg 650 mg, Un thor en -14 Oral, Q6H ity of (TYLENOL) 14:00: ABX, First [place] tablet 650 00 dose on Medica l mg Mon Branch 07/29/20 at 0900, Until Discontinu ed, Routine KCL 2020-0 2020- No 20meq 20 mEq, Univers (KLOR-CON 07-29 Oral, ity of M20) tablet 13:45: 13:50 ONCE, 1 [place] 20 mEq 00 :00 dose, Mon Medical 07/29/20 at Branch 0845, Routine methocarbam 2020-0 Yes 500mg 500 mg, Un thor oL 07-29 Oral, QID, ity of (ROBAXIN) 13:00: First dose [place] tablet 500 00 on [facility] Medical mg 07/29/20 at Branch 0800, Until Discontinu ed, Routine oxyCODONE 2020-0 2020- No 5mg 5 mg, Univer s immediate 07-29 Oral, ity of release 12:37: 11:44 Q6HPRN, [place] tablet 5 mg 43 :47 Starting Medi ryann Mon Branch 07/29/20 at 0737, Until 07/30/20 at 0644, Routine, Pain (scale 7-10)
F aculty member approving Restricted medication : PHATAK, DARREN metoprolol 2020-0 2020- No 5mg 5 mg, IV Un thor (LOPRESSOR) 07-29 Push, Q8H, i ty of injection 5 01:00: 12:37 First dose [place] mg 00 :04 (after Medical last Branch modificati on) on 07/28/20 at 2000, Until Discontinu ed, Routine methocarbam 2020-0 2020- No 1g 1,000 mg U nivers oL 07-28 (1 g), IV ity of (ROBAXIN) 22:00: 21:57 Piggyback, [place] 1,000 mg in 00 :00 ONCE, 1 Medic al NaCl 0.9% dose, [facility] h (NS) 07/28/20 at piggyback 1700, 100 mL acetaminoph 2020-0 2020- No 1000mg 1,000 mg, Univers en ADULT 07-28 IV ity of (OFIRMEV) 15:00: 08:16 Infusion, [place] injection 00 :00 Administer Medi ryann 1,000 mg over 15 Branch Minutes, Q8H ABX, 3 doses, First dose (after last reorder) on 07/28/20 at 1000, Last dose on 07/29/20 at 0200, Routine
Indicatio n: Non-periop erative Patient
Approved by: Per Policy (NPO Status) ALPRAZolam 2020-0 2020- No .5mg 0.5 mg, Uni vers (XANAX) 07-28 Oral, PRN, ity o f tablet 0.5 13:53: 16:59 1 dose, [place] as mg 25 :00 Starting [facility] Branch 07/28/20 at 0853, Until Discontinu ed, Routine, anxiety ALPRAZolam 2019-0 Yes 1mg 1 mg, Univer s (XANAX) 07-28 Oral, ity of tablet 1 mg 13:52: QHSPRN, [place] 54 Starting [facility] 07/28/20 at 0852, Until Discontinu ed, Routine, Insomnia, anxiety D5W 0.45% 2019-0 2020- No IV Univers NaCl 07-28 Infusion, ity of (1/2NS) 1 L 12:45: 12:37 at 100 [place] as + KCL 20 00 :04 mL/hr, Medical mEq CONTINUOUS Branch , Starting 07/28/20 at 0745, Until 07/29/20 at 0737, Routine acetaminoph 2019-0 2019- No 1000mg 1,000 mg, Univers en ADULT 07-27 IV ity of (OFIRMEV) 14:45: 07:32 Infusion, [place] injection 00 :00 Administer Medi ryann 1,000 mg over 15 Branch Minutes, Q8H ABX, 3 doses, First dose (after last reorder) on 07/27/20 at 0945, Last dose on 07/28/20 at 0145, Routine
Indicatio n: Non-periop erative Patient
Approved by: Per Policy (NPO Status) LORazepam 2019-0 2020- No .5mg 0.5 mg, Univ ers (ATIVAN) 07-26 Slow IV ity of injection 23:30: 01:34 Push, [place] 0.5 mg 00 :00 ONCE, 1 Medical dose, Fri Branch 07/26/20 at 1830, Routine acetaminoph 2019-0 2020- No 1000mg 1,000 mg, Univers en ADULT 07-26 IV ity of (OFIRMEV) 18:45: 11:34 Infusion, [place] injection 00 :00 Administer Medi ryann 1,000 mg over 15 Branch Minutes, Q8H ABX, 3 doses, First dose (after last reorder) on 07/26/20 at 1345, Last dose on 07/27/20 at 0545, Routine
Indicatio n: Non-periop erative Patient
Approved by: Per Policy (NPO Status) enoxaparin 2019-0 Yes 40mg 40 mg, Unive rs (LOVENOX) 07-26 Subcutaneo ity of injection 14:00: us, Q24H, [place] 40 mg 00 First dose Medical on Fri Branch 07/26/20 at 0900, Until Discontinu ed, Routine magnesium 2019-0 2020- No 2g 2 g, IV Univ ers sulfate in 07-26 Piggyback, it y of water 2 13:00: 23:17 ONCE, 1 [place] gram/50 mL 00 :00 dose, Fri Medi ryann (4 %) 07/26/20 at Branch infusion 2 0800, g Routine proCHLORper 2019-0 Yes 10mg 10 mg, IV U nivers azine 07-26 Piggyback, ity of (COMPAZINE) 11:53: Q6HPRN, [place] 10 mg in 33 Starting Medical NaCl 0.9% Fri Branch (NS) 07/26/20 at piggyback 0653, Until Discontinu ed, 50 mL metoprolol 0 2020- No 5mg 5 mg, IV Un thor (LOPRESSOR) 07-26 Piggyback, i ty of injection 5 05:00: 21:03 Q6H, First [place] mg 00 :49 dose on Medical Fri Branch 07/26/20 at 0000, Until Discontinu ed, Routine morpHINE 30 2019-0 2020- No Unive rs mg/30 mL 07-26 ity of (fixed 00:45: 12:37 [place] dose) [employer] 00 :04 Medical injection Branch HYDROmorpho 2019-0 2020- No .2mg 0.2 mg, Un thor ne 07-26 Slow IV ity of (DILAUDID) 00:22: 01:47 Push, [place] injection 54 :37 Q5MIN PRN, Medi ryann 0.2 mg 10 doses, Branch Starting Beth 07/25/20 at 1922, Until Beth 07/25/20 at 7, Routine, Pain (scale 7-10), PACU
Us e approved by (Faculty): PAIN SERVICE acetaminoph 2020- No 1000mg 1,000 mg, Univers en ADULT 07-26 IV ity of ([facility]) 00:21: 00:44 Infusion, [place] injection 16 :00 Administer Medi ryann 1,000 mg over 15 Branch Minutes, PRN, 1 dose, Starting Beth 07/25/20 at 1921, Until Beth 07/25/20 at 1944, Routine, Pain (scale 4-6)
In dication: Perioperat pasha Patient naloxone Yes .1mg 0.1 mg, Univer s (NARCAN) 07-25 Slow IV ity of injection 23:36: Push, [place] 0.1 mg 05 SEE-INSTRU Medical CTIONS, Branch Starting Beth 07/25/20 at 1836, Until Discontinu ed, Routine acetaminoph 2020- No 1000mg 1,000 mg, Univers en ADULT 07-25 IV ity of ([facility]) 12:45: 12:44 Infusion, [place] injection 00 :00 Administer Medi ryann 1,000 mg over 15 Branch Minutes, Q8H ABX, 3 doses, First dose (after last reorder) on Beth 07/25/20 at 0745, Last dose on Beth 07/25/20 at 2345, Routine
Indicatio n: Non-periop erative Patient
Approved by: Per Policy (NPO Status) pantoprazol 2020- No 40mg 40 mg, IV Univers e 07-24 Piggyback, ity of (PROTONIX) 13:00: 12:38 Q12H, [place] 40 mg in 00 :10 First dose Medic al NaCl 0.9% on Wed Branch (NS) 100 mL 07/24/20 at MINI-BAG 0800, Until Discontinu ed, 100 mL metoprolol 2020- No 25mg 25 mg, Univ ers tartrate 07-24 Oral, BID, ity of (LOPRESSOR) 13:00: 23:37 First dose [place] tablet 25 00 :55 on Wed Medical mg 07/24/20 at Branch 0800, Until Discontinu ed, Routine acetaminoph 2019- 2020- No 1000mg 1,000 mg, Univers en ADULT 07-24 IV ity of (OFIRMEV) 07:30: 22:16 Infusion, [place] injection 00 :00 Administer Medi ryann 1,000 mg over 15 Branch Minutes, Q8H ABX, 3 doses, First dose on Wed07/24/20 at 0230, Last dose on Wed07/24/20 at 1830, Routine
Indicatio n: Non-periop erative Patient
Approved by: Per Policy (NPO Status) piperacilli 2019- 2020- No 3.375g 3.375 g, Univers n-tazobacta 07-24 IV ity of m (ZOSYN) 07:00: 21:27 [place]back, [place] 3.375 g in 00 :26 Q6H ABX, Medic al NaCl 0.9% First dose Bran ch (NS) 100 mL on Wed MINI-BAG 07/24/20 at 0200, Until Discontinu ed, 100 mL
R bonnie for Anti-Infec tive: Documented Infection< br>Documen carl Infection Site: Abdominal< br>Dura tion of Therapy: 7 days D5W 0.45% 2020-0 2020- No IV Univers NaCl 07-24 Infusion, ity of (1/2NS) 1 L 06:30: 12:39 at 150 [place] + KCL 20 00 :19 mL/hr, Medical mEq CONTINUOUS Branch , Starting Wed07/24/20 at 0130, Until 07/28/20 at 0739, Routine morpHINE 2019-0 2020- No 4mg 4 mg, Slow Un thor injection 4 07-24 IV Push, ity of mg 06:19: 14:48 Q3HPRN, [place] 51 :46 Starting Medical 07/24/20 Branch at 0119, Until 07/28/20 at 0948, Routine, Pain (scale 7-10) morpHINE 2019-0 2020- No 4mg 4 mg, Slow Un thor injection 4 07-24 IV Push, ity of mg 03:45: 02:42 ONCE, 1 [place] 00 :00 dose, [facility] 07/23/20 at Branch 2245, STAT NaCl 0.9% 2019-0 2020- No 500mL at 999 Univ ers (NS) bolus 07-24 mL/hr, 500 it y of infusion 03:45: 03:41 mL, IV [place] 500 mL 00 :00 Infusion, Medical ONCE, 1 [place] dose, [facility] 07/23/20 at 2245, STAT NaCl 0.9% 2020-0 2020- No 1000mL at 150 Uni vers (NS) IV 07-24 mL/hr, ity of infusion 03:45: 09:49 Intravenou [place] 1,000 mL 00 :01 s, Medical CONTINUOUS [place] , Starting 07/23/20 at 2245, Until 07/24/20 at 0449, Routine proMETHazin 2019- 2020- No 12.5mg 12.5 mg, Univers e 07-24 IV ity of (PHENERGAN) 01:30: 01:30 Piggyback, [place] 12.5 mg in 00 :00 ONCE, 1 Medica l NaCl 0.9% dose, [facility] Bran h (NS) 50 mL 07/23/20 at piggyback 2030, 50 mL morpHINE 2020-0 2020- No 4mg 4 mg, Slow Un thor injection 4 07-24 IV Push, ity of mg 01:15: 00:22 ONCE, 1 [place] 00 :00 dose, [facility] 07/23/20 at Branch 2015, STAT morpHINE 2020-0 2020- No 4mg 4 mg, Slow Un thor injection 4 07-23 IV Push, ity of mg 22:30: 21:20 ONCE, 1 [place] 00 :00 dose, [facility] 07/23/20 at Branch 1730, STAT piperacilli 2020-0 2020- No 3.375g 3.375 g, Univers n-tazobacta 07-23 IV ity of m (ZOSYN) 22:30: 22:14 Piggyback, [place] 3.375 g in 00 :00 ONCE, 1 Medica l NaCl 0.9% dose, [facility] Bran h (NS) 100 mL 07/23/20 at MINI-BAG 1730, 100 mL
Reas on for Anti-Infec tive: Documented Infection< br>Documen carl Infection Site: Abdominal< br>Duratio n of Therapy: 7 days iohexol 2019-0 2020- No 114mL 114 mL, Unive rs (OMNIPAQUE 07-23 Intravenou it y of 350 20:46: 20:47 s, ONCE, 1 [place] BULK-150 00 :00 dose, Tue Medica l mL) 07/23/20 at Branch injection 1600, 114 mL Routine methylPREDN 2019- No 40mg 40 mg, IV Univers ISolone sod 07-23 Piggyback, i ty of succ 19:15: 19:10 ONCE, 1 [place] (SOLU-MEDRO 00 :00 dose, Tue Med ical L (PF)) 07/23/20 at Branch injection 1415, STAT 40 mg diphenhydrA 2019- No 25mg 25 mg, Uni vers MINE 07-23 Slow IV ity of (BENADRYL) 19:15: 19:18 Push, [place] injection 00 :00 ONCE, 1 Medical 25 mg dose, e Branch 07/23/20 at 1415, STAT morpHINE 2019- No 4mg 4 mg, Slow Un thor injection 4 07-23 IV Push, ity of mg 19:15: 18:59 ONCE, 1 [place] 00 :00 dose, Tue Medical 07/23/20 at Branch 1415, STAT famotidine 2019- No 20mg 20 mg, Univ ers (PEPCID 07-23 Intravenou ity o f (PF)) 18:45: 19:02 s, ONCE, 1 [place] injection 00 :00 dose, Tue Medic al 20 mg 07/23/20 at Branch 1345, LUISA proMETHazin 2020- No 12.5mg 12.5 mg, Univers e 07-23 IV ity of (PHENERGAN) 18:45: 19:01 Piggyback, [place] 12.5 mg in 00 :00 ONCE, 1 Medica l NaCl 0.9% dose, e Branc h (NS) 50 mL 07/23/20 at piggyback 1345, 50 mL NaCl 0.9% 2020-0 2020- No 1000mL at 999 Uni vers (NS) bolus 9-08 09-08 mL/hr, ity of infusion 17:45: 22:20 1,000 mL, Juan as 1,000 mL 00 :00 IV Medical Infusion, Branch ONCE, 1 dose, Wed07/23/20 at 1245, LUISA ALPRAZolam 2018-11 Yes 2mg Take 2 mg Un thor (XANAX) 2 0-10 by mouth 2 ity of mg tablet 21:48: (two) [place] 33 times Medical daily. Branch dextroamphe 2018-11 Yes 30mg Take 30 mg Univers tamine-amph 0-10 by mouth 2 it y of etamine 21:48: (two) [place] (ADDERALL) 33 times Medical 30 mg daily. Branch tablet Pantoprazol 2018-11 Yes 40mg Take 40 mg Univers e 0-10 by mouth 2 ity of (PROTONIX) 21:48: (two) [place] 40 mg 33 times Medical delayed-rel daily. Branch ease suspension metoprolol 2018-11 Yes [id number] 25mg Take 1 Un thor tartrate 25 0-10 tablet by ity of mg tablet 00:00: mouth 2 [place] 00 (two) Medical times Branch daily. metoprolol 2018-11 Yes [id number] 25mg Take 1 Un thor tartrate 25 0-10 tablet by ity of mg tablet 00:00: mouth 2 [place] 00 (two) Medical times Branch daily. metoprolol 2018-11 Yes [id number] 25mg Take 1 Un thor tartrate 25 0-10 tablet by ity of mg tablet 00:00: mouth 2 [place] 00 (two) Medical times Branch daily. acetaminoph 2018-11 Yes [id number] 1{tbl} Take 1 Univers en-codeine 0-10 tablet by ity of (TYLENOL-CO 00:00: mouth [place] DEINE #4) 00 every 4 Medical 300-60 mg (four) Branch tablet hours as needed for Pain. levoFLOXaci 2018-11 Yes [id number] 750mg Take 1 Univers n 750 mg 0-10 tablet by ity of tablet 00:00: mouth [place] 00 every 24 Medical (twenty-fo Branch ur) hours. metoprolol 2018-11 Yes [id number] 25mg Take 1 Un thor tartrate 25 0-10 tablet by ity of mg tablet 00:00: mouth (two) Medical times Branch daily. metoprolol 2018-11 Yes [id number] 25mg Take 1 Un thor tartrate 25 0-10 tablet by ity of mg tablet 00:00: mouth (two) Medical times Branch daily. metoprolol 2018-11 Yes [id number] 25mg Take 1 Un thor tartrate 25 0-10 tablet by ity of mg tablet 00:00: mouth (two) Medical times Branch daily. metoprolol 2018-11 Yes [id number] 25mg Take 1 Un thor tartrate 25 0-10 tablet by ity of mg tablet 00:00: mouth (two) Medical times Branch daily. metoprolol 2018-11 Yes [id number] 25mg Take 1 Un thor tartrate 25 0-10 tablet by ity of mg tablet 00:00: mouth (two) Medical times Branch daily. metoprolol 2018-11 Yes [id number] 25mg Take 1 Un thor tartrate 25 0-10 tablet by ity of mg tablet 00:00: mouth (two) Medical times Branch daily. metoprolol 2018-11 Yes [id number] 25mg Take 1 Un thor tartrate 25 0-10 tablet by ity of mg tablet 00:00: mouth (two) Medical times Branch daily. metoprolol 2018-11 Yes [id number] 25mg Take 1 Un thor tartrate 25 0-10 tablet by ity of mg tablet 00:00: mouth (two) Medical times Branch daily. metoprolol 2018-11 Yes [id number] 25mg Take 1 Un thor tartrate 25 0-10 tablet by ity of mg tablet 00:00: mouth (two) Medical times Branch daily. metoprolol 2018-11 Yes [id number] 25mg Take 1 Un thor tartrate 25 0-10 tablet by ity of mg tablet 00:00: mouth (two) Medical times Branch daily. metoprolol 2018-11 Yes [id number] 25mg Take 1 Un thor tartrate 25 0-10 tablet by ity of mg tablet 00:00: mouth (two) Medical times Branch daily. metoprolol 2018-11 Yes [id number] 25mg Take 1 Un thor tartrate 25 0-10 tablet by ity of mg tablet 00:00: mouth (two) Medical times Branch daily. metoprolol 2018-11 Yes [id number] 25mg Take 1 Un thor tartrate 25 0-10 tablet by ity of mg tablet 00:00: mouth (two) Medical times Branch daily. metoprolol 2018-11 Yes [id number] 25mg Take 1 Un thor tartrate 25 0-10 tablet by ity of mg tablet 00:00: mouth (two) Medical times Branch daily. metoprolol 2018-11 Yes [id number] 25mg Take 1 Un thor tartrate 25 0-10 tablet by ity of mg tablet 00:00: mouth (two) Medical times Branch daily. metoprolol 2018-11 Yes [id number] 25mg Take 1 Un thor tartrate 25 0-10 tablet by ity of mg tablet 00:00: mouth (two) Medical times Branch daily. metoprolol 2018-11 Yes [id number] 25mg Take 1 Un thor tartrate 25 0-10 tablet by ity of mg tablet 00:00: mouth (two) Medical times Branch daily. metoprolol 2018-11 Yes [id number] 25mg Take 1 Un thor tartrate 25 0-10 tablet by ity of mg tablet 00:00: mouth (two) Medical times Branch daily. metoprolol 2018-11 Yes [id number] 25mg Take 1 Un thor tartrate 25 0-10 tablet by ity of mg tablet 00:00: mouth (two) Medical times Branch daily. metoprolol 2018-11 Yes [id number] 25mg Take 1 Un thor tartrate 25 0-10 tablet by ity of mg tablet 00:00: mouth (two) Medical times Branch daily. metoprolol 2018-11 Yes [id number] 25mg Take 1 Un thor tartrate 25 0-10 tablet by ity of mg tablet 00:00: mouth (two) Medical times Branch daily. metoprolol 2018-11 Yes [id number] 25mg Take 1 Un thor tartrate 25 0-10 tablet by ity of mg tablet 00:00: mouth (two) Medical times Branch daily. metoprolol 2019-1 Yes [id number] 25mg Take 1 Un thor tartrate 25 0-10 tablet by ity of mg tablet 00:00: mouth (two) Medical times Branch daily. metoprolol 2018-11 Yes [id number] 25mg Take 1 Un thor tartrate 25 0-10 tablet by ity of mg tablet 00:00: mouth (two) Medical times Branch daily. metoprolol 2018-11 Yes [id number] 25mg Take 1 Un thor tartrate 25 0-10 tablet by ity of mg tablet 00:00: mouth (two) Medical times Branch daily. metoprolol 2018-11 Yes [id number] 25mg Take 1 Un thor tartrate 25 0-10 tablet by ity of mg tablet 00:00: mouth (two) Medical times Branch daily. metoprolol 2018-11 Yes [id number] 25mg Take 1 Un thor tartrate 25 0-10 tablet by ity of mg tablet 00:00: mouth (two) Medical times Branch daily. metoprolol 2018-11 Yes [id number] 25mg Take 1 Un thor tartrate 25 0-10 tablet by ity of mg tablet 00:00: mouth (two) Medical times Branch daily. metoprolol 2018-11 Yes [id number] 25mg Take 1 Un thor tartrate 25 0-10 tablet by ity of mg tablet 00:00: mouth (two) Medical times Branch daily. metoprolol 2018-11 Yes [id number] 25mg Take 1 Un thor tartrate 25 0-10 tablet by ity of mg tablet 00:00: mouth (two) Medical times Branch daily. metoprolol 2018-11 Yes [id number] 25mg Take 1 Un thor tartrate 25 0-10 tablet by ity of mg tablet 00:00: mouth (two) Medical times Branch daily. metoprolol 2018-11 Yes [id number] 25mg Take 1 Un thor tartrate 25 0-10 tablet by ity of mg tablet 00:00: mouth (two) Medical times Branch daily. metoprolol 2018-11 Yes [id number] 25mg Take 1 Un thor tartrate 25 0-10 tablet by ity of mg tablet 00:00: mouth (two) Medical times Branch daily. metoprolol 2018-11 Yes [id number] 25mg Take 1 Un thor tartrate 25 0-10 tablet by ity of mg tablet 00:00: mouth (two) Medical times Branch daily. metoprolol 2018-11 Yes [id number] 25mg Take 1 Un thor tartrate 25 0-10 tablet by ity of mg tablet 00:00: mouth 2 (two) Medical times Branch daily. metoprolol 2018-11 Yes [id number] 25mg Take 1 Un thor tartrate 25 0-10 tablet by ity of mg tablet 00:00: mouth 2 (two) Medical times Branch daily. metoprolol 2018-11 Yes [id number] 25mg Take 1 Un thor tartrate 25 0-10 tablet by ity of mg tablet 00:00: mouth (two) Medical times Branch daily. metoprolol 2018-11 Yes [id number] 25mg Take 1 Un thor tartrate 25 0-10 tablet by ity of mg tablet 00:00: mouth (two) Medical times Branch daily. metoprolol 2018-11 Yes [id number] 25mg Take 1 Un thor tartrate 25 0-10 tablet by ity of mg tablet 00:00: mouth (two) Medical times Branch daily. metoprolol 2018-11 Yes [id number] 25mg Take 1 Un thor tartrate 25 0-10 tablet by ity of mg tablet 00:00: mouth (two) Medical times Branch daily. metoprolol 2018-11 Yes [id number] 25mg Take 1 Un thor tartrate 25 0-10 tablet by ity of mg tablet 00:00: mouth (two) Medical times Branch daily. metoprolol 2018-11 2020- No [id number] 25mg Take 1 U nivers tartrate 25 0-10 12-16 tablet by it y of mg tablet 00:00: 00:00 mouth 2 [place] 00 :00 (two) Medical times Branch daily. acetaminoph 2018-11 2020- No [id number] 1{tbl} Take 1 Univers en-codeine 0-10 09-17 tablet by ity of (TYLENOL-CO 00:00: 00:00 mouth [place] DEINE #4) 00 :00 every 4 Medical 300-60 mg (four) Branch tablet hours as needed for Pain. levoFLOXaci 2018-11 2020- No [id number] 750mg Take 1 Univers n 750 mg 0-10 09-17 tablet by ity o f tablet 00:00: 00:00 mouth [place] 00 :00 every 24 Medical (twenty-fo Branch ur) hours. proMETHazin 2018-11 Yes [id number] 25mg Take 1 Univers e 25 mg 0-04 tablet by ity of tablet 00:00: mouth [place] 00 every 6 Medical (six) Branch hours as needed for Nausea and Vomiting (N/V). proMETHazin 2018-11 Yes [id number] 25mg Take 1 Univers e 25 mg 0-04 tablet by ity of tablet 00:00: mouth [place] 00 every 6 Medical (six) Branch hours as needed for Nausea and Vomiting (N/V). proMETHazin 2018-11 Yes [id number] 25mg Take 1 Univers e 25 mg 0-04 tablet by ity of tablet 00:00: mouth [place] 00 every 6 Medical (six) Branch hours as needed for Nausea and Vomiting (N/V). proMETHazin 2018-11 Yes [id number] 25mg Take 1 Univers e 25 mg 0-04 tablet by ity of tablet 00:00: mouth [place] 00 every 6 Medical (six) Branch hours as needed for Nausea and Vomiting (N/V). proMETHazin 2018-11 Yes [id number] 25mg Take 1 Univers e 25 mg 0-04 tablet by ity of tablet 00:00: mouth [place] 00 every 6 Medical (six) Branch hours as needed for Nausea and Vomiting (N/V). proMETHazin 2018-11 Yes [id number] 25mg Take 1 Univers e 25 mg 0-04 tablet by ity of tablet 00:00: mouth [place] 00 every 6 Medical (six) Branch hours as needed for Nausea and Vomiting (N/V). proMETHazin 2018-11 Yes [id number] 25mg Take 1 Univers e 25 mg 0-04 tablet by ity of tablet 00:00: mouth [place] 00 every 6 Medical (six) Branch hours as needed for Nausea and Vomiting (N/V). proMETHazin 2018-11 Yes [id number] 25mg Take 1 Univers e 25 mg 0-04 tablet by ity of tablet 00:00: mouth [place] 00 every 6 Medical (six) Branch hours as needed for Nausea and Vomiting (N/V). proMETHazin 2018-11 Yes [id number] 25mg Take 1 Univers e 25 mg 0-04 tablet by ity of tablet 00:00: mouth [place] 00 every 6 Medical (six) Branch hours as needed for Nausea and Vomiting (N/V). proMETHazin 2018-11 Yes [id number] 25mg Take 1 Univers e 25 mg 0-04 tablet by ity of tablet 00:00: mouth [place] 00 every 6 Medical (six) Branch hours as needed for Nausea and Vomiting (N/V). proMETHazin 2018-11 Yes [id number] 25mg Take 1 Univers e 25 mg 0-04 tablet by ity of tablet 00:00: mouth [place] 00 every 6 Medical (six) Branch hours as needed for Nausea and Vomiting (N/V). proMETHazin 2018-11 Yes [id number] 25mg Take 1 Univers e 25 mg 0-04 tablet by ity of tablet 00:00: mouth [place] 00 every 6 Medical (six) Branch hours as needed for Nausea and Vomiting (N/V). proMETHazin 2018-11 Yes [id number] 25mg Take 1 Univers e 25 mg 0-04 tablet by ity of tablet 00:00: mouth [place] 00 every 6 Medical (six) Branch hours as needed for Nausea and Vomiting (N/V). proMETHazin 2018-11 Yes [id number] 25mg Take 1 Univers e 25 mg 0-04 tablet by ity of tablet 00:00: mouth [place] 00 every 6 Medical (six) Branch hours as needed for Nausea and Vomiting (N/V). proMETHazin 2018-11 Yes [id number] 25mg Take 1 Univers e 25 mg 0-04 tablet by ity of tablet 00:00: mouth [place] 00 every 6 Medical (six) Branch hours as needed for Nausea and Vomiting (N/V). proMETHazin 2018-11 Yes [id number] 25mg Take 1 Univers e 25 mg 0-04 tablet by ity of tablet 00:00: mouth [place] 00 every 6 Medical (six) Branch hours as needed for Nausea and Vomiting (N/V). proMETHazin 2018-11 Yes [id number] 25mg Take 1 Univers e 25 mg 0-04 tablet by ity of tablet 00:00: mouth [place] 00 every 6 Medical (six) Branch hours as needed for Nausea and Vomiting (N/V). proMETHazin 2018-11 Yes [id number] 25mg Take 1 Univers e 25 mg 0-04 tablet by ity of tablet 00:00: mouth [place] 00 every 6 Medical (six) Branch hours as needed for Nausea and Vomiting (N/V). proMETHazin 2018-11 Yes [id number] 25mg Take 1 Univers e 25 mg 0-04 tablet by ity of tablet 00:00: mouth [place] 00 every 6 Medical (six) Branch hours as needed for Nausea and Vomiting (N/V). proMETHazin 2018-11 Yes [id number] 25mg Take 1 Univers e 25 mg 0-04 tablet by ity of tablet 00:00: mouth [place] 00 every 6 Medical (six) Branch hours as needed for Nausea and Vomiting (N/V). proMETHazin 2018-11 Yes [id number] 25mg Take 1 Univers e 25 mg 0-04 tablet by ity of tablet 00:00: mouth [place] 00 every 6 Medical (six) Branch hours as needed for Nausea and Vomiting (N/V). proMETHazin 2018-11 Yes [id number] 25mg Take 1 Univers e 25 mg 0-04 tablet by ity of tablet 00:00: mouth [place] 00 every 6 Medical (six) Branch hours as needed for Nausea and Vomiting (N/V). proMETHazin 2018-11 Yes [id number] 25mg Take 1 Univers e 25 mg 0-04 tablet by ity of tablet 00:00: mouth [place] 00 every 6 Medical (six) Branch hours as needed for Nausea and Vomiting (N/V). proMETHazin 2018-11 Yes [id number] 25mg Take 1 Univers e 25 mg 0-04 tablet by ity of tablet 00:00: mouth [place] 00 every 6 Medical (six) Branch hours as needed for Nausea and Vomiting (N/V). proMETHazin 2018-11 Yes [id number] 25mg Take 1 Univers e 25 mg 0-04 tablet by ity of tablet 00:00: mouth [place] 00 every 6 Medical (six) Branch hours as needed for Nausea and Vomiting (N/V). proMETHazin 2018-11 Yes [id number] 25mg Take 1 Univers e 25 mg 0-04 tablet by ity of tablet 00:00: mouth [place] 00 every 6 Medical (six) Branch hours as needed for Nausea and Vomiting (N/V). proMETHazin 2018-11 2020- No [id number] 25mg Take 1 Univers e 25 mg 009-18 tablet by ity of tablet 00:00: 00:00 mouth [place] 00 :00 every 6 Medical (six) Branch hours as needed for Nausea and Vomiting (N/V). proMETHazin No 25mg 25 mg, IV Univers e 06-15 Piggyback, ity of (PHENERGAN) 20:15: 19:30 ONCE, 1 [place] 25 mg in 00 :00 dose, Beth Medica l NaCl 0.9% 06/15/19 at [facility] h (NS) 50 mL 1515, 50 piggyback mL morpHINE No 4mg 4 mg, Slow Un thor injection 4 06-15 IV Push, ity of mg 20:15: 19:30 ONCE, 1 [place] 00 :00 dose, [facility] Medical 06/15/19 at Branch 1515, STAT iohexol No 120mL 120 mL, Unive rs (OMNIPAQUE 06-15 Intravenou it y of 350 19:00: 18:36 s, ONCE, 1 [place] BULK-150 00 :00 dose, Beth Medica l mL) 06/15/19 at Branch injection 1400, 120 mL Routine maalox:diph No 15mL 15 mL, Uni vers enhydrAMINE 06-15 Oral, ity of :lidocaine2 18:45: 17:54 ONCE, 1 [place] %viscous 00 :00 dose, [place] Medica l 1:1:1: 06/15/19 at Branch suspension 1345, (COMPOUNDED Routine ) diphenhydrA No 25mg 25 mg, Uni vers MINE 06-15 Slow IV ity of (BENADRYL) 18:45: 17:47 Push, [place] injection 00 :00 ONCE, 1 Medical 25 mg dose, [facility] Branch 06/15/19 at 1345, STAT famotidine 2018- No 20mg 20 mg, Univ ers (PEPCID 06-15 Slow IV ity of (PF)) 18:45: 17:47 Push, [place] injection 00 :00 ONCE, 1 Medical 20 mg dose, [facility] 06/15/19 at 1345, LUISA morpHINE 2019-0 2019- No 4mg 4 mg, Slow Un thor injection 4 06-15 IV Push, ity of mg 18:45: 17:54 ONCE, 1 [place] 00 :00 dose, [facility] 06/15/19 at Branch 1345, STAT proMETHazin 2018- No 25mg 25 mg, IV Univers e 06-15 Piggyback, ity of (PHENERGAN) 18:45: 17:54 [place] 1 [place] 00 :00 dose, [facility] NaCl 0.9% 06/15/19 at Bran h (NS) 50 mL 1345, 50 piggyback mL NaCl 0.9% 2018- No 1000mL at 999 Uni vers (NS) bolus 06-15 mL/hr, ity of infusion 17:00: 20:03 1,000 mL, Juan as 1,000 mL 00 :00 IV Medical Infusion, Branch ONCE, 1 dose, [facility] 06/15/19 at 1200, LUISA proMETHazin Yes [id number] 25mg Take 1 U nivers e 25 mg 06-15 tablet by ity of tablet 00:00: mouth [place] 00 every 6 Medical (six) Branch hours as needed for Nausea and Vomiting (N/V). famotidine 2019- No [id number] 40mg Take 1 U nivers 40 mg 06-15 tablet by ity of tablet 00:00: 04:59 mouth [place] 00 :00 daily for Medical 14 days. Branch predniSONE Yes [id number] Take 1 U nivers 10 mg 4-26 tablet ity of tablet 00:00: daily. [place] 00 Medical Branch proMETHazin Yes [id number] 25mg Insert 1 Univers e 25 mg 4-26 Suppositor [place]y of suppository 00:00: [place] 00 rectum Medical every 4 Branch (four) hours as needed for Nausea and Vomiting (N/V). ALPRAZolam Yes 2mg Take 2 mg Un thor (XANAX) 2 2-23 by mouth 2 ity of mg tablet 19:37: (two) [place] 38 times Medical daily. Branch dextroamphe Yes 30mg Take 30 mg Univers tamine-amph 2-23 by mouth 2 it y of etamine 19:37: (two) [place] (ADDERALL) 38 times Medical 30 mg daily. Branch tablet Pantoprazol Yes 40mg Take 40 mg Univers e 2-23 by mouth 2 ity of (PROTONIX) 19:37: (two) [place] 40 mg 38 times Medical delayed-rel daily. Branch ease suspension ALBUTEROL Yes 2{puff} Inhale 2 U nivers SULFATE 2-23 Puffs as ity of (PROAIR HFA 19:37: needed for [place] INHALE) 38 Other Medical (Asthma). Branch acetaminoph Yes 1{tbl} Take 1 Un thor en-codeine 9-29 tablet by ity of (TYLENOL-CO 00:00: mouth [place] DEINE #3) 00 every 6 Medical 300-30 mg (six) Branch tablet hours as needed for Pain (scale 4-6). acetaminoph Yes 1{tbl} Take 1 Un thor en-codeine 9-22 tablet by ity of (TYLENOL 00:00: mouth [place] #3) 300-30 00 every 6 Medica l mg tablet (six) Branch hours as needed for Pain (scale 4-6). proMETHazin Yes 12.5mg Insert 1 Univers e 5-10 Suppositor ity of (PHENERGAN) 00:00: [place] 12.5 mg 00 rectum Medical suppository every 4 Branc h (four) hours as needed for Nausea and Vomiting (N/V) for up to 5 doses. PHENERGAN Yes 25mg Insert 1 Univ ers 25 mg 3-12 Suppositor ity of suppository 00:00: [place] 00 rectum Medical every 4 Branch (four) hours as needed for Nausea and Vomiting (N/V). proMETHazin 2010-11 Yes [id number] 12.5mg Take 1 Tab Univers e 2-23 by mouth ity of (PHENERGAN) 00:00: every 6 Juan as 12.5 mg 00 (six) Medical tablet hours as Branch needed for Nausea and Vomiting. Vital Signs Vital Name Observation Time Observation Value Comments Source Systolic blood 2020-10-30 92 mm[Hg] University of pressure 22:01:00 [facility] Diastolic blood 2020-10-30 65 mm[Hg] University o f pressure 22:01:00 [place] [facility] Heart rate 2020-10-30 104 /min University of :01:00 [place] [facility] Body temperature 2020-10-30 36.83 Tayla University of 22:01:00 [place] [facility] Respiratory rate 2020-10-30 18 /min University of :01:[address] [facility] Oxygen saturation 2020-10-30 96 /min University of in Arterial blood 22:01:00 [place] Medi ryann by Pulse oximetry Branch Body weight 2020-10-24 61.2 kg University of 19:35:00 [place] [facility] BMI 2020-10-24 21.13 kg/m2 University of 19:35:00 [place] [facility] Systolic blood 2020-10-30 92 mm[Hg] University of pressure 22:01:00 [place] [facility] Diastolic blood 2020-10-30 65 mm[Hg] University o f pressure 22:01:[address] [facility] Heart rate 2020-10-30 104 /min University of :01:00 [facility] Body temperature 2020-10-30 36.83 Tayla University of :01:00 [place] [facility] Respiratory rate 2020-10-30 18 /min University of :01:[address] [facility] Oxygen saturation 2020-10-30 96 /min University of in Arterial blood 22:01:00 [place] Medi ryann by Pulse oximetry Branch Body weight 2020-10-24 61.2 kg University of 19:35:00 [facility] BMI 2020-10-24 21.13 kg/m2 University of 19:35:00 [facility] Systolic blood 2020-10-19 92 mm[Hg] University of pressure 19:08:00 [place] [facility] Diastolic blood 2020-10-19 63 mm[Hg] University o f pressure 19:08:00 [place] [facility] Heart rate 2020-10-19 98 /min University of 19:08:[address] [facility] Body temperature 2020-10-19 36.17 Tayla University of 19:08:[address] [facility] Respiratory rate 2020-10-19 18 /min University of 19:08:[address] [facility] Oxygen saturation 2020-10-19 100 /min University of in Arterial blood 19:08:00 [place] [facility]i ryann by Pulse oximetry Branch Body height 2020-10-14 170.2 cm University of 12:21: [place] [facility] Body weight 2020-10-14 55.1 kg University of 12:21:00 [facility] BMI 2020-10-14 19.03 kg/m2 University of 12:21:00 [facility] Systolic blood 2020-10-19 92 mm[Hg] University of pressure 19:08:00 [facility] Diastolic blood 2020-10-19 63 mm[Hg] University o f pressure 19:08:00 [facility] Heart rate 2020-10-19 98 /min University of 19:08:00 [facility] Body temperature 2020-10-19 36.17 Tayla University of 19:08:00 [facility] Respiratory rate 2020-10-19 18 /min University of 19:08:00 [facility] Oxygen saturation 2020-10-19 100 /min University of in Arterial blood 19:08:00 [facility] ryann by Pulse oximetry Branch Body height 2020-10-14 170.2 cm University of 12:21:00 [facility] Body weight 2020-10-14 55.1 kg University of 12:21:00 [facility] BMI 2020-10-14 19.03 kg/m2 University of 12:21:00 [facility] Respiratory rate 2020-10-02 20 /min University of 06:35:00 [facility] Oxygen saturation 2020-10-02 97 /min University of in Arterial blood 06:35:00 [facility] by Pulse oximetry Branch Systolic blood 2020-10-02 122 mm[Hg] University of pressure 04:53:00 [facility] Diastolic blood 2020-10-02 88 mm[Hg] University o f pressure 04:53:00 [facility] Heart rate 2020-10-02 133 /min University of 04:53:00 [facility] Body temperature 2020-10-02 37.28 Tayla University of 04:53:00 [facility] Body height 2020-10-02 170 cm University of 04:53:00 [facility] Body weight 2020-10-02 58.968 kg University of 04:53:00 [facility] BMI 2020-10-02 20.40 kg/m2 University of 04:53:00 [facility] Systolic blood 2020-09-27 98 mm[Hg] University of pressure 15:38:00 [facility] Diastolic blood 2020-09-27 64 mm[Hg] University o f pressure 15:38:00 [facility] Heart rate 2020-09-27 86 /min University of 15:38:00 [facility] Body temperature 2020-09-27 37.06 Tayla University of 15:38:00 [facility] Body height 2020-09-27 170.2 cm University of 15:38:00 [facility] Body weight 2020-09-27 59.104 kg University of 15:38:00 [facility] BMI 2020-09-27 20.41 kg/m2 University of 15:38:00 [facility] Oxygen saturation 2020-09-27 100 /min University of in Arterial blood 15:38:00 [place] Medi ryann by Pulse oximetry Branch Systolic blood 2020-09-18 106 mm[Hg] University of pressure 21:45:00 [facility] Diastolic blood 2020-09-18 68 mm[Hg] University o f pressure 21:45:00 [facility] Heart rate 2020-09-18 101 /min University of 21:45:00 [facility] Body temperature 2020-09-18 36.22 Tayla University of 21:45:00 [facility] Respiratory rate 2020-09-18 18 /min University of 21:45:00 [facility] Oxygen saturation 2020-09-18 98 /min University of in Arterial blood 21:45:00 [facility] by Pulse oximetry Branch Body weight 2020-09-18 61.236 kg With one University of 10:59:00 blanket and [facility]. Branch BMI 2020-09-18 21.14 kg/m2 University of 10:59:00 [facility] Body height 2020-09-13 170.2 cm University of 20:47:00 [facility] Systolic blood 2020-09-01 129 mm[Hg] University of pressure 11:00:00 [facility] Diastolic blood 2020-09-01 86 mm[Hg] University o f pressure 11:00:00 [facility] Heart rate 2020-09-01 102 /min University of 11:00:00 [facility] Body temperature 2020-09-01 37.67 Tayla University of 10:00:00 [facility] Respiratory rate 2020-09-01 18 /min University of 10:00:00 [facility] Oxygen saturation 2020-09-01 100 /min University of in Arterial blood 10:00:00 [facility] ryann by Pulse oximetry Branch Body weight 2020-09-01 58.968 kg University of 06:45:00 [facility] BMI 2020-09-01 20.36 kg/m2 University of 06:45:00 [facility] Systolic blood 2020-08-24 124 mm[Hg] University of pressure 00:00:[address] [facility] Branch Diastolic blood 2020-08-24 90 mm[Hg] University o f pressure 00:00:00 [place] [facility] Heart rate 2020-08-24 89 /min University of 00:00:00 [place] [facility] Respiratory rate 2020-08-24 20 /min University of 00:00:[address] [facility] Oxygen saturation 2020-08-24 100 /min University of in Arterial blood 00:00:00 [place] [facility]i ryann by Pulse oximetry Branch Body temperature 2020-08-23 36.61 Tayla University of 22:27:00 [place] [facility] Body weight 2020-08-23 58.968 kg University of 22:27: [facility] BMI 2020-08-23 20.36 kg/m2 University of 22:27: [facility] Systolic blood 2020-08-20 117 mm[Hg] University of pressure 16:22: [facility] Diastolic blood 2020-08-20 86 mm[Hg] University o f pressure 16:22: [facility] Heart rate 2020-08-20 129 /min University of 16:22:00 [facility] Body temperature 2020-08-20 36.89 Tayla University of 16:21:00 [place] [facility] Respiratory rate 2020-08-20 16 /min University of 16:21:[address] [facility] Body height 2020-08-20 170.2 cm University of 16:21:00 [place] [facility] Body weight 2020-08-20 57.607 kg University of 16:: [facility] BMI 2020-08-20 19.89 kg/m2 University of 16:21:[address] [facility] Systolic blood 2020-08-18 115 mm[Hg] University of pressure 04:00:[address] [facility] Diastolic blood 2020-08-18 79 mm[Hg] University o f pressure 04:00:00 [place] [facility] Heart rate 2020-08-18 104 /min University of 04:00:00 [place] [facility] Respiratory rate 2020-08-18 17 /min University of 04:00:[address] [facility] Oxygen saturation 2020-08-18 100 /min University of in Arterial blood 04:00:00 [place] [facility]i ryann by Pulse oximetry Branch Body temperature 2020-08-18 37.06 Tayla University of 00:44:00 [place] [facility] Body weight 2020-08-18 56.7 kg University of 00:44:00 [facility] BMI 2020-08-18 19.58 kg/m2 University of 00:44:00 [facility] Systolic blood 2020-08-09 153 mm[Hg] University of pressure 15:40:[address] [facility] Branch Diastolic blood 2020-08-09 83 mm[Hg] University o f pressure 15:40:00 [facility] Heart rate 2020-08-09 143 /min University of 15:40:00 [facility] Body temperature 2020-08-09 36.83 Tayla University of 15:40:00 [facility] Body height 2020-08-09 170.2 cm University of 15:40:00 [facility] Body weight 2020-08-09 56.473 kg University of 15:40:00 [facility] BMI 2020-08-09 19.50 kg/m2 University of 15:40:00 [facility] Oxygen saturation 2020-08-09 100 /min University of in Arterial blood 15:40:00 [facility] ryann by Pulse oximetry Branch Systolic blood 2020-08-01 126 mm[Hg] University of pressure 13:03:00 [facility] Diastolic blood 2020-08-01 76 mm[Hg] University o f pressure 13:03:00 [facility] Heart rate 2020-08-01 119 /min University of 13:03:00 [facility] Body temperature 2020-08-01 36.67 Tayla University of 13:03:00 [facility] Respiratory rate 2020-08-01 16 /min University of 13:03:00 [facility] Oxygen saturation 2020-08-01 99 /min University of in Arterial blood 13:03:00 [facility] by Pulse oximetry Branch Body weight 2020-07-23 70.308 kg University of 16:57:00 [facility] BMI 2020-07-23 24.28 kg/m2 University of 16:57:00 [facility] Systolic blood 2019-06-15 110 mm[Hg] University of pressure 18:22:00 [facility] Diastolic blood 2019-06-15 57 mm[Hg] University o f pressure 18:22:00 [facility] Heart rate 2019-06-15 91 /min University of 18:22:00 [facility] Respiratory rate 2019-06-15 18 /min University of 18:22:00 [facility] Oxygen saturation 2019-06-15 98 /min University of in Arterial blood 18:22:00 [facility] ryann by Pulse oximetry Branch Body temperature 2019-06-15 38 Tayla [facility] 16:54:00 [facility] Body weight 2019-06-15 83.915 kg [facility] 16:54:00 [facility] BMI 2019-06-15 28.98 kg/m2 [facility] 16:54:00 [facility] Procedures Procedure Date / Time Performing Clinician Source Performed AUTHORIZATION FOR RELEASE 2021-06-18 05:01:00 Doctor Unassigned, [facility] Name [facility] EXTERNAL PROVIDER RECORDS 2020-11-20 06:01:00 Doctor Unassigned, [facility] Name [facility] CBC WITH DIFF 2020-10-29 13:10:00 Sravan [facility] MAGNESIUM 2020-10-29 09:36:00 [facility] BASIC METABOLIC PANEL 2020-10-29 09:36:00 [facility] (NA, K, CL, CO2, GLUCOSE, [facility] BUN, CREATININE, CA) PHOSPHORUS 2020-10-28 10:00:00 Ehsan [facility] MAGNESIUM 2020-10-28 10:[facility] 2020-10-28 10:00:00 [facility] (NA, K, CL, CO2, GLUCOSE, [facility] BUN, CREATININE, CA) CBC WITH DIFF 2020-10-28 09:59:00 [facility] 2020-10-27 07:05:00 Ehsan Rena [facility] BASIC METABOLIC PANEL 2020-10-27 07:05:00 Ehsan Rena [facility] (NA, K, CL, CO2, GLUCOSE, Medica l Branch BUN, CREATININE, CA) CBC WITH DIFF 2020-10-27 07:05:00 [place] [facility] URINALYSIS 2020-10-27 07:05:00 Suraj [facility] URINE CULTURE 2020-10-27 07:05:00 Suraj [facility] CBC WITH DIFF 2020-10-26 11:43:00 [place] [facility] PHOSPHORUS 2020-10-26 03:41:00 Ehsan [facility] MAGNESIUM 2020-10-26 03:41:00 [facility] 2020-10-26 03:41:00 Ehsan [facility] (NA, K, CL, CO2, GLUCOSE, Medica l Branch BUN, CREATININE, CA) CBC WITH DIFF 2020-10-26 03:41:00 [facility] (ID NOW RAPID 2020-10-25 01:26:00 Ehsan Rena [facility] TESTING) Medical Branch LAB ONLY COVID 2020-10-25 01:26:00 [facility] INTERPRETATION [facility] BASIC METABOLIC PANEL 2020-10-24 22:27:00 Sravan [facility] (NA, K, CL, CO2, GLUCOSE, Medica l Branch BUN, CREATININE, CA) CBC WITH DIFF 2020-10-24 22:27:00 Sravan [facility] CT ABDOMEN PELVIS W 2020-10-24 21:20:40 Rena M[facility] CONTRAST [facility] BASIC METABOLIC PANEL 2020-10-17 23:11:[facility] ([facility], K, CL, CO2, GLUCOSE, Medica l Branch BUN, CREATININE, CA) CLOSTRIDIUM DIFFICILE 2020-10-17 17:24:00 [facility] MRSA / MSSA SCREEN BY 2020-10-15 01:09:00 Mandeep Garnica [facility] PHILL BERMUDEZ [facility] SURGICAL PATHOLOGY EXAM 2020-10-14 15:01:00 Kalee [facility] EXPLORATORY LAPAROTOMY 2020-10-14 13:10:00 Kalee [facility] ILEOSTOMY TAKEDOWN 2020-10-14 13:10:00 Kalee [facility] ASSIGNMENT OF BENEFITS 2020-10-14 11:29:56 Doctor Unassigned, Un [facility] [facility] URINALYSIS 2020-10-02 05:22:00 Ebony Chakraborty [facility] LIPASE 2020-10-02 05:19:00 Ebony Chakraborty [facility] HEPATIC FUNCTION PANEL 2020-10-02 05:19:00 Ebony Chakraborty [facility] ([id number]) (ALB,T.PRO,BILI Medical Branch T,BU/BC,ALT,AST,ALK PHOS) BASIC METABOLIC PANEL 2020-10-02 05:19:00 Ebony Chakraborty [facility] (NA, K, CL, CO2, GLUCOSE, Medica l Branch BUN, CREATININE, CA) CBC WITH DIFF 2020-10-02 05:19:00 Ebony Chakraborty [facility] CONSENT/REFUSAL FOR 2020-10-02 04:45:02 Doctor Unassigned, [facility] DIAGNOSIS AND TREATMENT [facility] COMP. METABOLIC PANEL 2020-09-16 12:00:00 Roby Jean [facility] ([id number]) Medical Branch COMP. METABOLIC PANEL 2020-09-15 09:58:00 [facility] ([id number]) Medical Branch CREATINE KINASE 2020-09-14 16:03:00 [facility] HEPATIC FUNCTION PANEL 2020-09-14 16:03:00 [facility] ([id number]) (ALB,T.PRO,BILI Medical Branch T,BU/BC,ALT,AST,ALK PHOS) BASIC METABOLIC PANEL 2020-09-14 16:03:00 [facility] (NA, K, CL, CO2, GLUCOSE, Medica l Branch BUN, CREATININE, CA) HEPATITIS B SURFACE 2020-09-14 10:15:00 Johnny [facility] ANTIBODY [facility] Branch HEPATITIS B SURFACE 2020-09-14 10:15:00 Yulissa [facility] ANTIGEN [facility] Branch HCV BY PCR 2020-09-14 10:15:00 ryan [facility] HB ECG ROUTINE & RHYTHM 2020-09-13 18:17:57 Hellen Sorenson [facility] STRIP [facility] Branch MAGNESIUM 2020-09-13 18:16:00 Johnny [facility] TROPONIN I 2020-09-13 18:16:00 [facility] Branch LIPASE 2020-09-13 17:15:00 Delta [facility] COMP. METABOLIC PANEL 2020-09-13 17:15:00 Hellen Sorenson [facility] ([id number]) Medical Branch CBC WITH DIFF 2020-09-13 17:15:00 Delta [facility] XR ABDOMEN 2 VW 2020-09-13 16:44[facility] 2020-09-13 05:01:00 Doctor Unassigned, [facility] DOCUMENTS [facility] CT ABDOMEN PELVIS W 2020-09-01 08:02:47 Shayla Munoz [facility] CONTRAST Medical Branch LIPASE 2020-09-01 07:10:00 Shayla Munoz [facility] COMP. METABOLIC PANEL 2020-09-01 07:10:00 Shayla Munoz [facility] ([id number]) Medical Branch CBC WITH DIFF 2020-09-01 07:10:00 Shayla Munoz [facility] CT ABDOMEN PELVIS W 2020-08-24 01:30:05 Matthias Silvestre [facility] CONTRAST Medical Branch LIPASE 2020-08-23 23:52:00 Matthias Silvestre [facility] CBC WITH DIFF 2020-08-23 23:52:00 Matthias Silvestre [facility] CONSENT/REFUSAL FOR 2020-08-23 22:12:59 Doctor Unassigned, [facility] DIAGNOSIS AND TREATMENT [facility] CT ABDOMEN PELVIS W 2020-08-18 02:24:35 Shayla Munoz [facility] CONTRAST Medical Branch LIPASE 2020-08-18 01:23:00 Shayla Munoz [facility] COMP. METABOLIC PANEL 2020-08-18 01:23:00 Shayla Munoz [facility] ([id number]) Medical Branch CBC WITH DIFF 2020-08-18 01:23:00 Shayla Munoz [facility] COVID-19 (ID NOW RAPID 2020-08-18 01:23:00 Shayla Munoz [facility] TESTING) Medical Branch NOTICE OF PRIVACY 2020-08-18 00:35:45 Doctor Unassigned, [facility] PRACTICES [facility] CONSENT/REFUSAL FOR 2020-08-18 00:31:36 Doctor Unassigned, [facility] DIAGNOSIS AND TREATMENT [facility] AUTHORIZATION TO RELEASE 2020-08-09 05:01:00 Doctor Unawendy, [facility] PHI TO [facility] PHOSPHORUS 2020-08-01 08:47:00 [facility] 2020-08-01 08:47:00 [facility] BASIC METABOLIC PANEL 2020-08-01 08:47:00 [facility] (NA, K, CL, CO2, GLUCOSE, Medica l Branch BUN, CREATININE, CA) CBC WITH DIFF 2020-08-01 08:47:00 [facility] PHOS[facility]ORUS 2020-07-31 10:06:00 [facility] MAGNESIUM 2020-07-31 10:06:00 [facility] BASIC METABOLIC PANEL 2020-07-31 10:06:00 [facility] (NA, K, CL, CO2, GLUCOSE, Medica l Branch BUN, CREATININE, CA) CBC WITH DIFF 2020-07-31 10:06:00 [facility] [place] PHOS[facility]US 2020-07-30 09:29:00 [facility] [place] MAGNESIUM 2020-07-30 09:29:00 [facility] BASIC METABOLIC PANEL 2020-07-30 09:29:00 [facility] (NA, K, CL, CO2, GLUCOSE, Medica l Branch BUN, CREATININE, CA) BASIC METABOLIC PANEL 2020-07-29 10:11:00 [facility] (NA, K, CL, CO2, GLUCOSE, Medica l Branch BUN, CREATININE, CA) CBC WITHOUT DIFF 2020-07-29 10:11:00 [facility] 2020-07-29 10:11:00 Mark Judy [facility] ACTIVATED PARTIAL 2020-07-29 10:11:00 Judy Flores [facility] FIBRINOGEN 2020-07-29 10:11:00 [facility] EX[facility] TUBE [facility]. BLUE 2020-07-29 10:11:00 Kalee [facility] EXTRA TUBE LT. GREEN 2020-07-29 10:11:00 Kalee [facility] XR KUB 2020-07-29 09:55:00 Judy Flores [facility] CBC WITHOUT DIFF 2020-07-28 10:15:00 Devan [facility] BASIC METABOLIC PANEL 2020-07-28 09:47:00 Farooq Hartman [facility] (NA, K, CL, CO2, GLUCOSE, Jose [facility] Branch BUN, CREATININE, CA) BASIC METABOLIC PANEL 2020-07-27 10:39:00 Farooq Hartman [facility] (NA, K, CL, CO2, GLUCOSE, [facility] BUN, CREATININE, CA) CBC WITHOUT DIFF 2020-07-27 10:39:00 Devan [facility] BASIC METABOLIC PANEL 2020-07-26 07:53:00 Farooq Hartman [facility] (NA, K, CL, CO2, GLUCOSE, [facility] BUN, CREATININE, CA) CBC WITHOUT DIFF 2020-07-26 07:53:00 Devan [facility] MAGNESIUM 2020-07-26 00:13:00 Devan [facility] BASIC METABOLIC PANEL 2020-07-26 00:13:00 Farooq Hartman [facility] (NA, K, CL, CO2, GLUCOSE, [facility] BUN, CREATININE, CA) CBC WITHOUT DIFF 2020-07-26 00:13:00 Devan [facility] PROTHROMBIN TIME / INR 2020-07-26 00:13:00 Farooq Hartman [facility] ACTIVATED PARTIAL 2020-07-26 00:13:00 Farooq Hartman [facility] SURGICAL PATHOLOGY EXAM 2020-07-25 22:08:00 Kalee [facility] ILEOSTOMY 2020-07-25 20:18:00 Kalee [facility] ILEOCECECTOMY 2020-07-25 20:18:00 Kalee [facility] BASIC METABOLIC PANEL 2020-07-25 11:35:00 [facility] (NA, K, CL, CO2, GLUCOSE, Medica l Branch BUN, CREATININE, CA) CBC WITHOUT DIFF 2020-07-25 11:35:00 Parag [facility] ABORH CONFIRMATION 2020-07-25 04:37:00 Mercedez Canela [facility] HB ABO GROUPING 2020-07-25 04:12:00 Oliver Nunez [facility] BASIC METABOLIC PANEL 2020-07-24 07:34:00 Dc Jay [facility] (NA, K, CL, CO2, GLUCOSE, Medica l Branch BUN, CREATININE, CA) CBC WITHOUT DIFF 2020-07-24 07:34:00 Dc Jay [facility] XR ABDOMEN 1 VW 2020-07-24 06:56:00 Dc [facility] EKG-12 LEAD 2020-07-24 06:39:07 Farooq Zepeda [facility] COVID-19 (ID NOW RAPID 2020-07-24 00:26:00 Mercedez Canela [facility] TESTING) [facility] LACTIC ACID WHOLE BLOOD 2020-07-24 00:24:00 [facility] 2020-07-23 21:41:[address] [facility] LACTIC ACID WHOLE BLOOD 2020-07-23 21:41:00 [facility] ABDOMEN PELVIS W 2020-07-23 20:56:34 Mercedez Canela [facility] Branch LIPASE 2020-07-23 19:31:00 Mercedez Canela [facility] HEPATIC FUNCTION PANEL 2020-07-23 19:31:00 Mercedez Canela [facility] ([id number]) (ALB,T.PRO,BILI Medical Branch T,BU/BC,ALT,AST,ALK PHOS) BASIC METABOLIC PANEL 2020-07-23 19:31:00 Mercedez Canela [facility] (NA, K, CL, CO2, GLUCOSE, Medica l Branch BUN, CREATININE, CA) CBC WITH DIFF 2020-07-23 19:31:00 Mercedez Canela [facility] URINALYSIS 2020-07-23 19:19:00 Mercedez Canela [facility] NOTICE OF PRIVACY 2020-07-23 16:48:03 Doctor Unassigned, [facility] CONSENT/REFUSAL FOR 2020-07-23 16:47:54 Doctor Vanessa, [facility] DIAGNOSIS AND TREATMENT [facility] AGREEMENTS AUTHORIZATIONS 2020-07-23 05:01:00 Doctor Vanessa, [facility] AND IRREVOCABLE [facility] ASSIGNMENTS (FORM 2001) CT ABDOMEN PELVIS W 2019-06-15 18:45:34 Mary Jo Dukes [facility] CONTRAST [facility] LACTIC ACID WHOLE BLOOD 2019-06-15 17:46:00 Mary Jo Dukes [facility] LIPASE 2019-06-15 17:30:00 [facility] HEPATIC FUNCTION PANEL 2019-06-15 17:30:00 Mary Jo Dukes [facility] ([id number]) ([facility]B,[facility] T,BU/BC,ALT,AST,ALK PHOS) BASIC METABOLIC PANEL 2019-06-15 17:30:00 Mary Jo Dukes [facility] (NA, K, CL, CO2, GLUCOSE, Medica l Branch BUN, CREATININE, CA) CBC WITH DIFFERENTIAL 2019-06-15 17:30:00 Mary Jo Dukes [facility] POCT TEST 2019-06-15 17:24:00 Mary Jo Dukes [facility] URINALYSIS 2019-06-15 17:22:00 [facility] NOTICE OF PRIVACY 2019-06-15 16:39:09 Doctor Unassmaria del carmen, [facility] ity of [place] PRACTICES [facility] CONSENT/REFUSAL FOR 2019-06-15 16:38:53 Doctor Unassigned, [facility] DIAGNOSIS AND TREATMENT [facility] Encounters Start End Encounter Admission Attending Care Care Encounter Source Date/Time Date/Time Type Type Clinicians Facility Department ID 2021-09-13 Emergency X DARREN CLARK [facility] JASIEL [id number] Univers 10:26:40 ity of [facility] 2021-09-13 Emergency [facility] [id number] Univers 06:14:00 ity of [facility] 2021-09-13 Outpatient DARREN CLARK [facility] [id number] Univers 05:23:22 ity of [facility] 2021-09-13 Emergency [facility] [id number] Univers 04:35:58 ity of [facility] 2021-09-13 Emergency [facility] [id number] Univers 02:03:39 ity of [facility] 2021-09-13 Emergency [facility] [id number] Univers 00:06:17 ity of [facility] 2021-09-12 Emergency [facility] [id number] Univers 23:33:58 ity of [facility] 2021-09-12 Emergency [facility] [id number] Univers 22:11:08 ity of [facility] 2021-09-12 Emergency [facility] [id number] Univers 20:54:06 ity of [facility] 2021-03-20 Inpatient HCAPM JOSE ROBERTO [id number] [facility] 10:26:00 [id number] [facility] 2021-01-10 Inpatient HCAWU JOSE ROBERTO [id number] [facility] 20:22:[id number] [facility] 2021-06-18 2021-06-18 Orders Doctor KELLY 1.2.840.114 [id number] Univers 00:00:00 00:00:00 Only Unassigned, ARMAND 350.1.13.[address] [facility] 4.2.7.2.686 Juan as [phone] [place] [address] Branch 2021-05-31 2021-05-31 Emergency E KAPADIA, NW [facility]NW 7504 NW 11:46:00 20:16:00 DELOIRS 2021-03-20 2021-03-20 Outpatient NIDIA Villanueva [id number] [facility] 18:43:00 18:43:00 Safi [id number] [facility] 2021-01-03 2021-01-03 Patient Anne Fuentes 1.2.840.114 [id number] Univers 00:00:00 00:00:00 Outreach Mercedez Narayanan 350.1.13.10 [place] [id number] [facility] 403 Branch 2020-11-26 2020-11-26 Outpatient [facility] [id number] Univers 09:00:00 09:00:00 ORPHEUS [id number] ity [facility] 2020-11-26 2020-11-26 Outpatient [facility] [id number] Univers 09:00:00 09:00:00 ORPHEUS ity [facility] 2020-11-26 2020-11-26 Telephone Darren Clark [facility] 1.2.840.114 [id number] Univers 00:00:00 00:00:00 Health 350.1.13.10 it [place].2.[place] [id number] [facility] 408 Branch 2020-11-22 2020-11-22 Outpatient [facility] [id number] [id number]-20 Univers 15:30:00 15:30:00 ORPHEUS [id number] ity [facility] 2020-11-22 2020-11-22 Outpatient [facility] [id number] Univers 15:30:00 15:30:00 ORPHEUS ity [facility] 2020-11-20 2020-11-20 Orders Doctor KELLY 1.2.840.114 [id number] Univers 00:00:00 00:00:00 Only Unassigned, ARMAND 350.1.13.10 it[place] of [place] [facility] 4.2.7.2.686 Juan as [phone] [facility] 009 Branch 2020-11-19 2020-11-19 Outpatient [facility] [id number] [id number]-20 Univers 11:15:00 11:15:00 MEHRDAD [id number] ity [facility] 2020-11-19 2020-11-19 Outpatient R [facility] [id number] Univers 11:15:00 11:15:00 ORPHEUS ity [facility] 2020-11-12 2020-11-12 Patient Deepika Ramirez Anne 1.2.840.114 [id number] Univers 00:00:00 00:00:00 Outreach E Narayanan 350.1.13.10 [place] [id number] [address] 2020-11-11 2020-11-11 Telephone [facility] 1.2.840.114 [id number] Univers 00:00:00 00:00:00 [facility] 350.1.13.10 [place] - [phone] [facility] [address] 2020-11-05 2020-11-05 Telephone Darren Clark [facility] 1.2.840.114 [id number] Univers 00:00:00 00:00:00 SPECIALTY 350.1.13.10 it[place] C[place] AT [phone] [address] 2020-11-01 2020-11-01 Patient Deepika Ramirez Anne 1.2.840.114 [id number] Univers 00:00:00 00:00:00 Outreach E Narayanan 350.1.13.10 [place] [id number] [address] 2020-10-31 2020-10-31 Transition Anne Damon 1.2.840.114 [id number] Univers 00:00:00 00:00:00 of Care Lynda Narayanan 350.1.13.10 [place] [id number] [address] 2020-10-31 2020-10-31 Transition Anne Damon 1.2.840.114 [id number] 00:00:00 00:00:00 of Care Lynda Narayanan 350.1.13.10 [place] 4.2.7.2.686 [id number] [facility] 2020-10-24 2020-10-30 [facility] Dar[facility]ryan Rudd 1.2.840.114 [id number] [facility] 13:38:00 19:38:00 Encounter [place] 350.1.13.10 ity of Hospital 4.2.7.2.686 [place] as [phone] [place] [address] Gideon 2020-10-24 2020-10-30 [facility] 1.2.840.114 [id number] 13:38:00 19:38:00 Encounter Armand 350.1.13.10 Hospital 4.2.7.2.686 [id number] 9 2020-10-21 2020-10-21 Transition Anne Damon 1.2.840.114 [id number] [facility] 00:00:00 00:00:00 of Care Lynda Narayanan 350.1.13.10 [place]2.[place] [id number] [place] [address] Branch 2020-10-21 2020-10-21 Transition Anne Damon 1.2.840.114 [id number] 00:00:00 00:00:00 of Care Lynda Narayanan 350.1.13.10 [place] 4.2.7.2.686 [id number] [facility] 2020-10-14 2020-10-19 [facility] 1.2.840.114 [id number] [facility] 05:48:00 15:50:00 Encounter [place] 350.1.13.10 ity of Hospital 4.2.7.2.686 [place] as [phone] [place] [address] Gideon 2020-10-14 2020-10-19 [facility] 1.2.840.114 [id number] 05:48:00 15:50:00 Encounter Armand 350.1.13.10 Hospital 4.2.7.2.686 [id number] Critical access hospital 2020-10-16 2020-10-16 Patient Deepika Ramirez 1.2.840.114 [id number] Univers 00:00:00 00:00:00 Outreach E Narayanan 350.1.13.10 [place] [id number] [facility] 403 Branch 2020-10-16 2020-10-16 Patient Deepika Ramirez 1.2.840.114 [id number] 00:00:00 00:00:00 Outreach E Narayanan 350.1.13.10 [place] [id number] [facility] 2020-10-14 2020-10-14 Orders Doctor LETICIA 1.2.840.114 [id number] Univers 00:00:00 00:00:00 Only Unassigned, ARMAND 350.1.13.10 it[place] of [place] [facility] 4.2.7.2.686 Juan as [phone] [facility] 009 [place] 2020-10-14 2020-10-14 Orders Doctor LETICIA 1.2.840.114 [id number] 00:00:00 00:00:00 Only Unassigned, ARMAND 350.1.13.10 [facility] 4.2.7.2.686 [id number] [facility] 2020 2020 Laboratory Only, [facility] Test [facility] 1.2.840. 114 [id number] Univers 14:56:46 15:11:46 Only Phatak, Darren Dearing 350.1.13.10 ity of [place].2.[place] [phone] [facility] 353 [place] 2020 2020 Laboratory Only, [facility] 1.2.840.114 [id number] 14:56:46 15:11:46 Only Test Dearing 350.1.13.10 [place] 4.2.7.2.686 Loiza [id number] [facility] 2020 2020 Outpatient [facility] [id number] Univers 14:45:00 14:45:00 [id number] ity of [facility] 2020 2020 Outpatient R [facility] [id number] Univers 14:45:00 14:45:00 ity of [facility] 2020-10-07 2020-10-07 Patient Deepika Ramirez 1.2.840.114 [id number] Univers 00:00:00 00:00:00 Outreach E Narayanan 350.1.13.10 [place]2.[place] [id number] [facility] 403 [place] 2020-10-07 2020-10-07 Patient Deepika Ramirez 1.2.840.114 [id number] 00:00:00 00:00:00 Outreach E Narayanan 350.1.13.10 [place] 4.2.7.2.686 [id number] [facility] 2020-10-01 2020-10-02 Emergency [facility] 1.2.840.114 [id number] [facility] 23:00:00 01:14:00 Ebony Abernathy 350.1.13.10 [place].2.[place] [id number] [facility] 084 [place] 2020-10-01 2020-10-01 Transition Sabi Damonmamie 1.2.840.114 [id number] Univers 00:00:00 00:00:00 of Care Lynda Narayanan 350.1.13.10 it[place] [phone] [address] 2020-09-30 2020-09-30 Telephone Kalee [facility] 1.2.840.114 [id number] Univers 00:00:00 00:00:00 Health 350.1.13.10 it [place].2.[place] - [phone] Med [address] 2020-09-27 2020-09-27 Office Kalee [facility] 1.2.840.114 [id number] Univers 09:20:41 09:35:41 Visit Health 350.1.13.10 it y of [place].2.[place].2.[place] - [phone] Med [address] 2020-09-27 2020-09-27 Outpatient R KALEE [facility] [id number] [id number] Univers 09:30:00 09:30:00 [id number] ity of [facility] 2020-09-27 2020-09-27 Outpatient R [facility] [id number] Univers 09:30:00 09:30:00 ity of [facility] 2020-09-24 2020-09-24 Telephone Kalee [facility] 1.2.840.114 [id number] Univers 00:00:00 00:00:00 Health 350.1.13.10 it y of [place].2.7.2.686 [place] - [phone] Med ical [facility] 408 Branch 2020-09-19 2020-09-19 Transition Anne Damon 1.2.840.114 [id number] Univers 00:00:00 00:00:00 of Care Lynda Narayanan 350.1.13.10 ity of [place].2.[place] [phone] [facility] 403 Branch 2020-09-19 2020-09-19 Patient Deepika Ramirez Anne 1.2.840.114 [id number] Univers 00:00:00 00:00:00 Outreach E Narayanan 350.1.13.10 i ty of [place].2.7.2.[place] [id number] [facility] 403 Branch 2020-09-13 2020-09-18 [facility] 1.2.840.1 14 [id number] Univers 10:29:00 17:07:00 Encounter Roby Jean 350.1.13.10 ity of [place].2.[place] [id number] [facility] 081 Branch 2020-09-17 2020-09-17 Patient Deepika Ramirez Anne 1.2.840.114 [id number] Univers 00:00:00 00:00:00 Outreach E Narayanan 350.1.13.10 i ty of [place]2.7.2.[place] [id number] [facility] 403 Branch 2020-09-16 2020-09-16 Patient Deepika Ramirez Anne 1.2.840.114 [id number] Univers 00:00:00 00:00:00 Outreach E Narayanan 350.1.13.10 i ty [place]2.[place] [phone] [address] 2020-09-16 2020-09-16 Patient Anne Fuentes 1.2.840.114 [id number] Univers 00:00:00 00:00:00 Outreach Mercedez Barlow Narayanan 350.1.13.10 ity of [place].2.[place] [phone] [address] 2020-09-13 2020-09-13 Patient Deepika Ramirezmamie 1.2.840.114 [id number] Univers 00:00:00 00:00:00 Outreach E Narayanan 350.1.13.10 i ty [place]2.[place].2.[place] [id number] [address] 2020-09-12 2020-09-12 Transition Anne Damon 1.2.840.114 [id number] Univers 00:00:00 00:00:00 of Care Lynda Narayanan 350.1.13.10 it[place] of [place]2.[place] [id number] [address] 2020-09-12 2020-09-12 Patient Deepika Ramirezmamie 1.2.840.114 [id number] Univers 00:00:00 00:00:00 Outreach E Narayanan 350.1.13.10 i ty of [place].2.[place] [phone] [address] 2020-09-12 2020-09-12 Patient Deepika Ramirezmamei 1.2.840.114 [id number] Univers 00:00:00 00:00:00 Outreach E Narayanan 350.1.13.10 i ty [place].2.[place] [phone] [address] 2020-09-12 2020-09-12 Patient Anne Fuentes 1.2.840.114 [id number] Univers 00:00:00 00:00:00 Outreach Mercedez Barlow Narayanan 350.1.13.10 ity of [place].2.[place].2.[place] [phone] [facility] 403 Branch 2020-09-12 2020-09-12 Telephone [facility] 1.2.840.114 [id number] Univers 00:00:00 00:00:00 [place] SPECIALTY 350.1.13.10 ity of CARE 4.2.7.2.686 [facility] CENTER AT [phone] Fl maximus LARA 072 [facility] 2020-09-06 2020-09-06 [facility] 535 386P-20 Univers 11:00:00 11:00:00 [id number] ity of [facility] 2020-09-06 2020-09-06 Outpatient [facility] 005 [id number] Univers 11:00:00 11:00:00 ity of [facility] 2020-09-03 2020-09-03 Outpatient R [facility] [id number] Univers 11:00:00 11:00:00 ity of [facility] 2020-09-03 2020-09-03 Outpatient R [facility] [id number] Univers 11:00:00 11:00:00 ity of [facility] 2020-09-01 2020-09-01 Emergency [facility] 1.2.081.744 [id number] Univers 01:42:00 07:20:00 Shayla Martínez SarkarDearing 350.1.13.10 ity of [place] 4.2.7.2.686 [facility] [id number] [facility] 084 Branch 2020-08-29 2020-08-29 Telephone [facility] 1.2.840.114 [id number] Univers 00:00:00 00:00:00 Mehrdad Alonso Health 350.1.13.10 ity of Cancer 4.2.7.2.686 [facility] - [phone] Med ical [facility] 188 Branch 2020-08-28 2020-08-28 Telephone [facility] 1.2.840.114 [id number] Univers 00:00:00 00:00:00 Health 350.1.13.10 it y of Cancer 4.2.7.2.686 [facility] - [phone] Med ical [facility] 408 Branch 2020-08-23 2020-08-23 Emergency Nirmala, [facility] 1.2.093.336 [id number] Univers 17:35:00 22:19:00 Matthias Abernathy 350.1.13.10 i ty of [place] 4.2.7.2.686 [facility] [id number] [facility] 084 [place] 2020-08-20 2020-08-20 Deepika Candelario [facility] 1.2.840.114 [id number] Univers 11:14:50 12:08:13 Visit Daquan Hayes HEALTH 350.1.13.10 ity of CLINICS 4.2.7.2.686 [facility] [id number] [facility] 188 Branch 2020-08-20 2020-08-20 Outpatient R [facility] [id number] Univers 11:00:00 11:00:00 ity of [facility] 2020-08-20 2020-08-20 Outpatient R [facility] [id number] Univers 11:00:00 11:00:00 ity of [facility] 2020-08-20 2020-08-20 Telephone K[facility] 1.2.840.114 [id number] Univers 00:00:00 00:00:00 Health 350.1.13.10 it y of Cancer 4.2.7.2.686 [facility] [phone] [facility] 408 [address] 2020-08-17 2020-08-18 [facility] 1.2.608.151 [id number] Univers 19:34:00 00:56:00 Shayla Abernathy 350.1.13.10 ity of [place] 4.2.7.2.686 [facility] [phone] [address] 2020-08-09 2020-08-09 Office Kalee [facility] 1.2.840.114 [id number] Univers 10:32:05 10:47:05 Visit Health 350.1.13.10 it y of Cancer 4.2.7.2.686 [facility] [id number] [facility] 408 Branch 2020-08-09 2020-08-09 Outpatient R DARREN CLARK [facility] [id number] Univers 10:45:00 10:45:00 ity of [facility] 2020-08-09 2020-08-09 Orders Doctor LETICIA 1.2.840.114 [id number] Univers 00:00:00 00:00:00 Only Unassigned, ARMAND 350.1.13.10 ity of [place] [facility] 4.2.7.2.686 Juan as [phone] [facility] 009 [place] 2020-08-05 2020-08-05 Telephone K[facility] 1.2.840.114 [id number] Univers 00:00:00 00:00:00 Health 350.1.13.10 it [place].2.[place] [facility] [id number] Med ical [facility] 408 Branch 2020-08-02 2020-08-02 Transition Anne Ramirez 1.2.840.114 [id number] Univers 00:00:00 00:00:00 of Care Destinee Narayanan 350.1.13.10 i ty of [place].2.7.2.[place] [id number] [facility] 403 Branch 2020-07-23 2020-08-01 Hospital ZackaryMercedez lafleur 1.2.840 .114 [id number] Univers 11:58:00 17:47:00 Encounter Shayla Munoz 350.1.13.10 ity of [place] [facility] 4.2.7.2.686 [facility] [id number] [place] 744751 Branch 2020-07-23 2020-07-23 Emergency X [facility] [id number] Univers 11:58:00 11:58:00 MERCEDEZ itmarion of [facility] 2020-07-23 2020-07-23 Orders Doctor KELLY 1.2.840.114 [id number] Univers 00:00:00 00:00:00 Only Unassigned, ARMAND 350.1.13.10 ity of [place] [facility] 4.2.7.2.686 Juan as [phone] [place] [address] Branch 2019-12-09 2019-12-09 Emergency E MHSE MHSE 7503 MH 09:16:00 09:16:00 [facility] 2019-06-15 2019-06-15 Emergency DANIEL Dukes 1.2.840.114 [id number] [facility] 11:46:39 15:08:00 Mary Jo Abernathy 350.1.13.10 [facility] [place] 4.2.7.2.686 [facility] [id number] [facility] 084 Branch Results Test Description Test Time Test Comments Results Result [facility] e Comments - CT ABD PELVIS 2021-03-20 W/CONT 13:55:00 [facility] 1975 Sex: F Name: EDEN CHAKRABORTY [facility] : 1975 Age/S: 45 / F [address] Unit #: [id number] Loc: [place] [address] Phys: Lemuel Villanueva DO Acct: [id number] Dis Date: Status: REG ER PHONE #: [phone] Exam Date: 03/20/2021 1337 FAX #: Reason: epigastric pain, h/o Crohn's, SBO EXAMS: CPT: [id number] CT ABD PELVIS W/CONT 60164 Site ID: [id number] CLINICAL HISTORY: Epigastric abdominal pain, history of Crohn's TECHNIQUE: Axial images of the abdomen and pelvis were obtained from diaphragm to the pubic symphysis with intravenous contrast. CT dose lowering technique utilized, with adjustment of MA/kV according to patient size and automated exposure control. COMPARISON: CT abdomen and pelvis December 25, 2015 DISCUSSION: The lung bases are clear. The heart size is normal. The liver is normal in size and contour, without focal abnormality. The gallbladder is unremarkable. No biliary ductal dilatation. The spleen, pancreas and adrenal glands are unremarkable. Both kidneys are normal in size. No hydronephrosis or enhancing renal mass. Vascular structures are normal in caliber and appearance. No ileus, bowel obstruction or inflammatory changes, postsurgical changes are present involving the bowel the right lower quadrant. No ascites. Urinary bladder appears normal. No evidence of sacroiliitis or acute bony pathology. Moderately advanced bilateral hip joint arthritis. IMPRESSION: No acute findings at 3247 Reported and signed by: Kang Bates M.D. PAGE 1 Signed Report (CONTINUED) Name: EDEN CHAKRABORTY [facility] : 1975 Age/S: 45 / F [address] Unit #: [id number] Loc: [place] [address] Phys: Lemuel Villanueva DO Acct: [id number] Dis Date: Status: REG ER PHONE #: [phone] Exam Date: 03/20/2021 1335 FAX #: Reason: epigastric pain, h/o Crohn's, SBO EXAMS: CPT: [id number] CT ABD PELVIS W/CONT 37697 <Continued> CC: Lemuel Villanueva DO Technologist:RT Paul(R)(CT) CTDI: DLP: Trnscb Date/Time: 03/20/2021 (0695) [email or web address] Orig Print D/T: S: 03/20/2021 (3880) PAGE 2 Signed Report - XR RIBS UNI 2021-03-20 W/CXR 3+V LT 13:47:00 [facility] : 1975 Sex: F Name: EDEN CHAKRABORTY : 1975 Age/S: 45 / F [id number] [place] [address] Unit #: [id number] Loc: [place] [address] Phys: Lemuel Villanueva DO Acct: [id number] Dis Date: Status: REG ER PHONE #: [phone] Exam Date: 03/20/2021 1231 FAX #: Reason: left rib pain EXAMS: CPT: [id number] XR RIBS UNI W/CXR 3+[place] [address] Fluoro Time: DAP (Gy m2): Air Kerma (mGy): LOCATION: T18 EXAM: - XR RIBS UNI W/CXR 3+V LT INDICATION: left rib pain, COMPARISON: None. TECHNIQUE: AP chest with frontal and oblique radiographs of the left ribs FINDINGS: Lungs are clear. No pneumothorax or pleural effusion. The heart is normal in size. No displaced rib fracture is identified. IMPRESSION: No displaced rib fracture. at 1347 Reported and signed by: Faraz Pedroza M.D. CC: Lemuel Villanueva DO PAGE 1 Signed Report Name: EDEN CHAKRABORTY : 1975 Age/S: 45 / F [address] [place] [address] Unit #: [id number] Loc: [place] [address] Phys: Lemuel Villanueva DO Acct: [id number] Dis Date: Status: REG ER PHONE #: [phone] Exam Date: 03/20/2021 1231 FAX #: Reason: left rib pain EXAMS: CPT: [id number] XR RIBS UNI W/CXR 3+V [place] [address] Fluoro Time: DAP (Gy m2): Air Kerma (mGy): <Continued> Technologist: Cady Pendleton, RT(R)(MR) Trnscb Date/Time: 03/20/2021 (1347) [id number] Orig Print D/T: S: 03/20/2021 (2721) PAGE 2 Signed Report HCG SERUM 2021-03-20 12:51:00 Test Item Value Reference Range Interpretation Comme nts HCG SERUM (test code = HCG) < 1 mi-IU/ML 0-6 N 0 - 6 NOT > 6 SUGGESTIVE OF EARLY RISES TWO FOLD EVERY 2 DAYS; SUGGEST REC ONFIRMING AFTER 2 D AYS. 150,000-200,[address] TRIMESTER 10,000 - 50,000 2ND & 3RD TRIME STER BASIC METABOLIC [id number] 12:49:00 Test Item Value Reference Range Interpretation Comments SODIUM (test code = NA) 139 mmol/L 134-147 N POTASSIUM (test code = 4.2 mmol/L 3.4-5.0 N K) CHLORIDE (test code = 109 mmol/L 100-108 H CL) CARBON DIOXIDE (test 27 mmol/L 21-32 N code = CO2) ANION GAP (test code = 3.0 GAP calc 4.0-15.0 L GAP) GLUCOSE (test code = 105 MG/DL 70-110 N GLU) BLOOD UREA NITROGEN 11 MG/DL 7-18 N (test code = BUN) GLOMERULAR FILTRATION >=60 max estimate >60 RATE (test code = GFR) estGFR CREATININE (test code = 0.7 MG/DL 0.6-1.0 N CREAT) CALCIUM (test code = CA) 8.5 MG/DL 8.5-10.1 N Completed by Nursing: LETICIAHEPATIC FUNCTION [id number] 12:49:00 Test Item Value Reference Range Interpretation Comments TOTAL PROTEIN (test code = PROT) 6.9 G/DL 6.4-8.2 N ALBUMIN (test code = ALB) 3.2 G/DL 3.4-5.0 L BILIRUBIN TOTAL (test code = BILT) 0.60 MG/DL 0.2-1.2 N BILIRUBIN DIRECT (test code = 0.20 MG/DL 0.00-0.30 N BILD) BILIRUBIN INDIRECT (test code = 0.40 MG/DL 0.2-1.2 N BILIND) SGOT/AST (test code = AST) 11 Unit/L 15-37 L SGPT/ALT (test code = ALT) 19 Unit/L 12-78 N ALKALINE PHOSPHATASE TOTAL (test 65 Unit/L 45-117 N code = ALKP) Completed by Nursing: [id number] 12:49:00 Test Item Value Reference Range Interpretation Comments LIPASE (test code = LIP) 77 Unit/L 114-286 L Completed by Nursing: [id number] 12:49:00 Test Item Value Reference Range Interpretation Comments TROPONIN-I (test < 0.015 NG/ML 0.000-0.045 N Negative: </= 0.045 code = TROPI) Positive: >/= 0.046 Correlation wit h serial results, other cardiac markers, and cl inical findings is nec essary to determine the c linical significance of this result. Quantit ative results using d ifferent methodologies s hould not be compared to one another as nume rical results may tarun yby method. Completed by Nursing: NOPROTHROMBIN [id number] 12:25:00 Test Item Value Reference Range Interpretation Comments PT PATIENT (test code = PTP) 10.7 SECONDS 9.3-12.9 N INTERNATIONAL NORMAL RATIO 0.96 INR Unit 0.8-1.2 N (test code = INR) CBC W/AUTO [id number] 12:23:00 Test Item Value Reference Range Interpretation Comments WHITE BLOOD CELL (test code = 6.1 K/mm3 3.5-11.0 N WBC) RED BLOOD CELL (test code = 3.43 M/mm3 4.70-6.10 L RBC) HEMOGLOBIN (test code = HGB) 11.1 G/DL 10.4-14.9 N HEMATOCRIT (test code = HCT) 34.1 % 31.5-44.1 N MEAN CELL VOLUME (test code = 99.4 Fl 84.5-98.6 H MCV) MEAN CELL HGB (test code = MCH) 32.4 pg 27.0-34.2 N MEAN CELL HGB CONCETRATION 32.6 G/DL 31.5-34.0 N (test code = MCHC) RED CELL DISTRIBUTION WIDTH 12.7 SD 11.5-14.5 N (test code = RDW) PLATELET COUNT (test code = 260 K/mm3 150-450 N PLT) MEAN PLATELET VOLUME (test code 10.00 fL 7.0-10.5 N = MPV) NEUTROPHIL % (test code = NT%) 59.3 % 40-76 N IMMATURE GRANULOCYTE % (test 0.3 % 0.0-5.0 N code = IG%) LYMPHOCYTE % (test code = LY%) 32.1 % 20.5-51.1 N MONOCYTE % (test code = MO%) 7.5 % 1.7-9.3 N EOSINOPHIL % (test code = EO%) 0.3 % 0.0-6.0 N BASOPHIL % (test code = BA%) 0.5 % 0.0-2.0 N NUCLEATED RBC % (test code = 0.0 /100WBC% 0.0-1.0 N NRBC%) NEUTROPHIL # (test code = NT#) 3.6 K/mm3 1.8-7.6 N IMMATURE GRANULOCYTE # (test 0.02 x10 3/uL 0.00-0.03 N code = IG#) LYMPHOCYTE # (test code = LY#) 2.0 K/mm3 0.6-3.2 N MONOCYTE # (test code = MO#) 0.5 K/mm3 0.3-1.1 N EOSINOPHIL # (test code = EO#) 0.0 K/mm3 0.0-0.4 N BASOPHIL # (test code = BA#) 0.0 K/mm3 0.0-0.1 N NUCLEATED RBC # (test code = 0.0 K/mm3 0.0-0.1 N NRBC#) MANUAL DIFF REQUIRED (test code NO DIFF/SCN CRITERIA = MDIFF) UA RFLX MICR CULT IF [id number] 12:18:00 Test Item Value Reference Range Interpretation Comments UA COLOR (test code = COLU) YELLOW discript YEL/STRAW UA APPEARANCE (test code = CLEAR discript CLEAR APPU) UA GLUCOSE DIPSTICK (test NEGATIVE mg/dL NEG code = DGLUU) UA BILIRUBIN DIPSTICK (test NEGATIVE mg/dL NEG code = BILU) UA KETONE DIPSTICK (test NEGATIVE mg/dL NEG code = KETU) UA SPECIFIC GRAVITY (test >=1.030 SG 1.005-1.030 A code = SGU) UA BLOOD DIPSTICK (test NEGATIVE mg/DL NEG code = JOSE ALFREDO) UA PH DIPSTICK (test code = 6.0 pH UNITS 5.0-7.0 MARC) UA PROTEIN DIPSTICK (test NEGATIVE mg/dL NEG code = PROU) UA UROBILINIOGEN DIPSTICK 0.2 mg/dL <2.0 (test code = URO) UA NITRITE DIPSTICK (test NEGATIVE SCREEN NEG code = HUNTER) UA LEUKOCYTE ESTERASE NEGATIVE Leuk/mcL NEGATIVE DIPSTICK (test code = LEUU) UA CULTURE NEEDED? (test Criteria Culture CHK code = UACULT) Indication for culture: Flank Pain RiskForSepsis-no oth srcSOURCE OF URINE: CLEAN CATCHUA RFLX MICR CULT IF [id number] 12:18:00 Test Item Value Reference Range Interpretation Comments UA COLOR (test code = COLU) YELLOW discript YEL/STRAW UA APPEARANCE (test code = CLEAR discript CLEAR APPU) UA GLUCOSE DIPSTICK (test NEGATIVE mg/dL NEG code = DGLUU) UA BILIRUBIN DIPSTICK (test NEGATIVE mg/dL NEG code = BILU) UA KETONE DIPSTICK (test NEGATIVE mg/dL NEG code = KETU) UA SPECIFIC GRAVITY (test >=1.030 SG 1.005-1.030 A code = SGU) UA BLOOD DIPSTICK (test NEGATIVE mg/DL NEG code = JOSE ALFREDO) UA PH DIPSTICK (test code = 6.0 pH UNITS 5.0-7.0 MARC) UA PROTEIN DIPSTICK (test NEGATIVE mg/dL NEG code = PROU) UA UROBILINIOGEN DIPSTICK 0.2 mg/dL <2.0 (test code = URO) UA NITRITE DIPSTICK (test NEGATIVE SCREEN NEG code = HUNTER) UA LEUKOCYTE ESTERASE NEGATIVE Leuk/mcL NEGATIVE DIPSTICK (test code = LEUU) Indication for culture: Flank Pain RiskForSepsis-no oth srcSOURCE OF URINE: CLEAN CATCHLACTIC [id number] 11:59:00 Test Item Value Reference Range Interpretation Comments LACTIC ACID (test code = LACT) 1.3 mmol/L 0.4-2.0 N - XR KNEE 3 V [id number] 21:05:00 [facility] 1975 Sex: F Patient Name: EDEN CHAKRABORTY Unit No: [id number] EXAMS: CPT CODE: [id number] XR KNEE 3 V RT 17911 Location: H3 Right knee x-ray exam: 3 views, 01/10/21 CLINICAL HISTORY: Atraumatic knee pain. Comparison exam: None of the knee Knee joint is fairly well- maintained. No erosion identified. No abnormal joint effusion. No abnormal calcific deposition. The overlying soft tissues appear unremarkable. IMPRESSION: Fairly unremarkable exam at 2104 Reported and signed by: Karina Huff AMERICAN HOSPITAL ASSOCIATIONC: Timur Middleton MD; Karissa AWAD Technologist: Daquan Armas (RT) Transcrpt Date/Tm/Trnsp: 01/10/2021 (2104) [email or web address] Orig Print D/T: S: 01/10/2021 (2107) [facility] NAME: EDEN CHAKRABORTY [address] PHYS: [place] [address] : 1975 AGE: 45 SEX: F LOC: [facility] PHONE #: [phone] EXAM DATE: 01/10/2021 STATUS: REG ER FAX #: [phone] RADIOLOGY NO: [id number] PAGE 1 Signed ReportCBC WITH [id number] 13:24:00 Test Item Value Reference Range Interpretation Comments WBC (test code = See_Comment [Automated 7190-2) message] The sy stem which generated this result transmitted reference range : 4.30 - 11.10 10*3/?L. The reference range was not used to interpret this result as normal/abnormal . RBC (test code = See_Comment L [Automated 890-8) message] The sy stem which generated this result transmitted reference range : 3.93 - 5.25 10*6/?L. The reference range was not used to interpret this result as normal/abnormal . HGB (test code = 8.8 g/dL 11.6-15 L 718-7) HCT (test code = 28.7 % 35.7-45.2 L 4544-3) MCV (test code = 99.3 fL 80.6-95.5 H 787-2) MCH (test code = 30.4 pg 25.9-32.8 785-6) MCHC (test code = 30.7 g/dL 31.6-35.1 L 786-4) RDW-SD (test code = 51.6 fL 39-49.9 H 48381-2) RDW-CV (test code = 14.3 % 12-15.5 788-0) PLT (test code = See_Comment H [Automated 777-3) message] The sy stem which generated this result transmitted reference range : 166 - 358 10*3/ ?L. The reference r madelin was not used to interpret this result as normal/abnormal . MPV (test code = 8.9 fL 9.5-12.9 L 77077-0) NRBC/100 WBC (test See_Comment [Automat ed code = 7934005668) message] The system which generated this result transmitted reference range : 0.0 - 10.0 /100 WBCs. The refer ence range was not u sed to interpret th is result as normal/abnormal . NRBC x10^3 (test code <0.01 See_Comment [Auto mated = 5635055301) message] The s ystem which generated this result transmitted reference range : 10*3/?L. The reference range was not used to interpret this result as normal/abnormal . GRAN MAT (NEUT) % 43.5 % (test code = 770-8) IMM GRAN % (test code 0.50 % = 3690433099) LYMPH % (test code = 36.9 % 736-9) MONO % (test code = 11.5 % 5905-5) EOS % (test code = 6.5 % 713-8) BASO % (test code = 1.1 % 706-2) GRAN MAT x10^3(ANC) 2.80 10*3/uL 1.88-7.09 (test code = 0138800116) IMM GRAN x10^3 (test 0.03 10*3/uL 0-0.06 code = 2073338864) LYMPH x10^3 (test code 2.37 10*3/uL 1.32-3.29 = 731-0) MONO x10^3 (test code 0.74 10*3/uL 0.33-0.92 = 742-7) EOS x10^3 (test code = 0.42 10*3/uL 0.03-0.39 H 711-2) BASO x10^3 (test code 0.07 10*3/uL 0.01-0.07 = 704-7) Lab Interpretation Abnormal (test code = 49133-5) [facility] Metabolic Panel (NA, K, CL, CO2, GLUCOSE, BUN, CREATININE, CA)2020-10-29 10:07:00 Test Item Value Reference Range Interpretation Comments NA (test code = 133 mmol/L 135-145 L 4084074664) K (test code = 4.3 mmol/L 3.5-5 8463489238) CL (test code = 102 mmol/L 98-108 5696563366) CO2 TOTAL (test code = 28 mmol/L 23-31 7157684871) AGAP (test code = 2-16 0751671433) BUN (test code = 3 mg/dL 7-23 L 8441765283) GLUCOSE (test code = 103 mg/dL 70-110 3489220344) CREATININE (test code = 0.62 mg/dL 0.5-1.04 8753339109) CALCIUM (test code = 8.4 mg/dL 8.6-10.6 L 1403344217) eGFR Calculation mL/min/1.73m2 (Non-) (test code = 5953294014) eGFR Calculation mL/min/1.73m2 () (test code = 7694189610) RAUDEL (test code = RAUDEL) Association of Glomerular Filtration Rate (GFR) and Staging of Kidney Disease* + --+ --+ ------+| GFR (mL/min/1.73 m2) ?| With Kidney Damage ?| ?Without Kidney Damage+ --------+ --------+ +| ?>90 ?| ?Stage one ?| ? Normal ?+ ---+ ---+ -------+| ?60-89 ?| ?Stage two ?| ? Decreased GFR ? + --+ --+ ------+| ?30-59 ?| ?Stage three ?| ? Stage three ? + --+ --+ ------+| ?15-29 ?| ?Stage four ? | ? Stage four ?+ ---+ ---+ -------+| ?<15 (or dialysis) ? ?| ?Stage five ? | ? Stage five ?+ ---+ ---+ -------+ *Each stage assumes the associated GFR level has been in effect for at least three months. ?Stages 1 to 5, with or without kidney disease, indicate chronic kidney disease. Notes: Determination of stages one and two (with eGFR >59mL/min/1.73 m2) requires estimation of kidney damage for at least three months as defined by structural or functional abnormalities of the kidney, manifested by either:Pathological abnormalities or Markers of kidney damage (including abnormalities in the composition of the blood or urine or abnormalities in imaging tests). Lab Interpretation Abnormal (test code = 61916-2) [facility] [id number] 10:07:00 Test Item Value Reference Range Interpretation Comments MAGNESIUM (test code = 6978108644) 1.5 mg/dL 1.7-2.4 L Lab Interpretation (test code = Abnormal 85158-5) [facility] [id number] 13:44:00 Test Item Value Reference Range Interpretation Comments URINE CULTURE (test < 10,000 CFU/mL mixed code = 630-4) aerobic organisms - suggests endogenous microbial contamination [facility] CenterPhosphorus [id number] 10:45:00 Test Item Value Reference Range Interpretation Comments PHOSPHORUS (test code = 4366067854) 3.4 mg/dL 2.5-5 Lab Interpretation (test code = Normal 97016-1) [facility] (NA, K, CL, CO2, GLUCOSE, BUN, CREATININE, CA)2020-10-28 10:45:00 Test Item Value Reference Range Interpretation Comments NA (test code = 135 mmol/L 135-145 4039513278) K (test code = 4.0 mmol/L 3.5-5 1596841093) CL (test code = 101 mmol/L 98-108 6049030259) CO2 TOTAL (test code = 31 mmol/L 23-31 8012553385) AGAP (test code = 2-16 5683008783) BUN (test code = 4 mg/dL 7-23 L 8373189056) GLUCOSE (test code = 100 mg/dL 70-110 9396121931) CREATININE (test code = 0.70 mg/dL 0.5-1.04 6980935760) CALCIUM (test code = 8.3 mg/dL 8.6-10.6 L 0805605520) eGFR Calculation mL/min/1.73m2 (Non-) (test code = 6132266140) eGFR Calculation mL/min/1.73m2 () (test code = 5080135325) RAUDEL (test code = RAUDEL) Association of Glomerular Filtration Rate (GFR) and Staging of Kidney Disease* + --+ --+ ------+| GFR (mL/min/1.73 m2) ?| With Kidney Damage ?| ?Without Kidney Damage+ --------+ --------+ +| ?>90 ?| ?Stage one ?| ? Normal ?+ ---+ ---+ -------+| ?60-89 ?| ?Stage two ?| ? Decreased GFR ? + --+ --+ ------+| ?30-59 ?| ?Stage three ?| ? Stage three ? + --+ --+ ------+| ?15-29 ?| ?Stage four ? | ? Stage four ?+ ---+ ---+ -------+| ?<15 (or dialysis) ? ?| ?Stage five ? | ? Stage five ?+ ---+ ---+ -------+ *Each stage assumes the associated GFR level has been in effect for at least three months. ?Stages 1 to 5, with or without kidney disease, indicate chronic kidney disease. Notes: Determination of stages one and two (with eGFR >59mL/min/1.73 m2) requires estimation of kidney damage for at least three months as defined by structural or functional abnormalities of the kidney, manifested by either:Pathological abnormalities or Markers of kidney damage (including abnormalities in the composition of the blood or urine or abnormalities in imaging tests). Lab Interpretation Abnormal (test code = 69020-9) [facility] [id number] 10:45:00 Test Item Value Reference Range Interpretation Comments MAGNESIUM (test code = 3268828280) 1.8 mg/dL 1.7-2.4 Lab Interpretation (test code = Normal 62265-9) [facility] WITH [id number] 10:13:00 Test Item Value Reference Range Interpretation Comments WBC (test code = See_Comment [Automated 6690-2) message] The sy stem which generated this result transmitted reference range : 4.30 - 11.10 10*3/?L. The reference range was not used to interpret this result as normal/abnormal . RBC (test code = See_Comment L [Automated 789-8) message] The sy stem which generated this result transmitted reference range : 3.93 - 5.25 10*6/?L. The reference range was not used to interpret this result as normal/abnormal . HGB (test code = 8.3 g/dL 11.6-15 L 718-7) HCT (test code = 26.3 % 35.7-45.2 L 4544-3) MCV (test code = 96.3 fL 80.6-95.5 H 787-2) MCH (test code = 30.4 pg 25.9-32.8 785-6) MCHC (test code = 31.6 g/dL 31.6-35.1 786-4) RDW-SD (test code = 48.4 fL 39-49.9 27835-0) RDW-CV (test code = 13.8 % 12-15.5 788-0) PLT (test code = See_Comment H [Automated 777-3) message] The sy stem which generated this result transmitted reference range : 166 - 358 10*3/ ?L. The reference r madelin was not used to interpret this result as normal/abnormal . MPV (test code = 9.1 fL 9.5-12.9 L 05060-6) NRBC/100 WBC (test See_Comment [Automat ed code = 4857021911) message] The system which generated this result transmitted reference range : 0.0 - 10.0 /100 WBCs. The refer ence range was not u sed to interpret th is result as normal/abnormal . NRBC x10^3 (test code <0.01 See_Comment [Auto mated = 4499223901) message] The s ystem which generated this result transmitted reference range : 10*3/?L. The reference range was not used to interpret this result as normal/abnormal . GRAN MAT (NEUT) % 55.3 % (test code = 770-8) IMM GRAN % (test code 0.40 % = 1987638503) LYMPH % (test code = 29.4 % 736-9) MONO % (test code = 9.4 % 5905-5) EOS % (test code = 5.1 % 713-8) BASO % (test code = 0.4 % 706-2) GRAN MAT x10^3(ANC) 3.83 10*3/uL 1.88-7.09 (test code = 9247888157) IMM GRAN x10^3 (test 0.03 10*3/uL 0-0.06 code = 6952957890) LYMPH x10^3 (test code 2.04 10*3/uL 1.32-3.29 = 731-0) MONO x10^3 (test code 0.65 10*3/uL 0.33-0.92 = 742-7) EOS x10^3 (test code = 0.35 10*3/uL 0.03-0.39 711-2) BASO x10^3 (test code 0.03 10*3/uL 0.01-0.07 = 704-7) Lab Interpretation Abnormal (test code = 48986-6) [facility] [id number] 07:50:00 Test Item Value Reference Range Interpretation Comments MAGNESIUM (test code = 1743236468) 1.1 mg/dL 1.7-2.4 L Lab Interpretation (test code = Abnormal 70580-5) [facility]2020-12-13 07:50:00 Test Item Value Reference Range Interpretation Comments APPEARANCE (test code = Hazy Clear A 5207933543) COLOR (test code = Yellow Yellow 2730499582) PH (test code = 4.8-8.0 8780313166) SP GRAVITY (test code = 1.003-1.030 1982797057) GLU U QUAL (test code = Normal Normal 7290538870) BLOOD (test code = Negative Negative 1767096763) KETONES (test code = Negative Negative 4003745936) PROTEIN (test code = Negative Negative 2887-8) UROBILIN (test code = Normal Normal 8884055321) BILIRUBIN (test code = Negative Negative 8356157120) NITRITE (test code = Negative Negative 3428380144) LEUK CHELY (test code = 25/uL Negative A 7923155934) RBC/HPF (test code = See_Comment [Autom ated message] 1755922316) The system [employer] generated this result transmitted ref erence range: 0 - 3 HP F. The reference range was not used to int erpret this result as normal/abnormal . WBC/HPF (test code = See_Comment [Autom ated message] 3544578396) The system [employer] generated this result transmitted ref erence range: 0 - 5 HP F. The reference range was not used to int erpret this result as normal/abnormal . BACTERIA (test code = Negative Negative 1181353854) MUCOUS (test code = Slight Negative LPF A 5487290404) SQ EPITH (test code = See_Comment [Auto mated message] 8672343826) The system [employer] generated this result transmitted ref erence range: <=2 HPF. The reference range was not used to int erpret this result as normal/abnormal . Lab Interpretation (test Abnormal code = 37486-6) [facility] Metabolic Panel (NA, K, CL, CO2, GLUCOSE, BUN, CREATININE, CA)2020-10-27 07:45:00 Test Item Value Reference Range Interpretation Comments NA (test code = 135 mmol/L 135-145 6061462661) K (test code = 3.2 mmol/L 3.5-5 L 0689134257) CL (test code = 99 mmol/L 98-108 0042785599) CO2 TOTAL (test code = 35 mmol/L 23-31 H 2831509753) AGAP (test code = 2-16 L 0846079557) BUN (test code = 3 mg/dL 7-23 L 0214575406) GLUCOSE (test code = 104 mg/dL 70-110 3086852380) CREATININE (test code = 0.66 mg/dL 0.5-1.04 9020137861) CALCIUM (test code = 7.5 mg/dL 8.6-10.6 L 5690041545) eGFR Calculation mL/min/1.73m2 (Non-) (test code = 8579694580) eGFR Calculation mL/min/1.73m2 () (test code = 4177821511) RAUDEL (test code = RAUDEL) Association of Glomerular Filtration Rate (GFR) and Staging of Kidney Disease* + --+ --+ ------+| GFR (mL/min/1.73 m2) ?| With Kidney Damage ?| ?Without Kidney Damage+ --------+ --------+ +| ?>90 ?| ?Stage one ?| ? Normal ?+ ---+ ---+ -------+| ?60-89 ?| ?Stage two ?| ? Decreased GFR ? + --+ --+ ------+| ?30-59 ?| ?Stage three ?| ? Stage three ? + --+ --+ ------+| ?15-29 ?| ?Stage four ? | ? Stage four ?+ ---+ ---+ -------+| ?<15 (or dialysis) ? ?| ?Stage five ? | ? Stage five ?+ ---+ ---+ -------+ *Each stage assumes the associated GFR level has been in effect for at least three months. ?Stages 1 to 5, with or without kidney disease, indicate chronic kidney disease. Notes: Determination of stages one and two (with eGFR >59mL/min/1.73 m2) requires estimation of kidney damage for at least three months as defined by structural or functional abnormalities of the kidney, manifested by either:Pathological abnormalities or Markers of kidney damage (including abnormalities in the composition of the blood or urine or abnormalities in imaging tests). Lab Interpretation Abnormal (test code = 23250-3) [facility] with [id number] 07:24:00 Test Item Value Reference Range Interpretation Comments WBC (test code = See_Comment [Automated 6701-2) message] The sy stem which generated this result transmitted reference range : 4.30 - 11.10 10*3/?L. The reference range was not used to interpret this result as normal/abnormal . RBC (test code = See_Comment L [Automated 059-8) message] The sy stem which generated this result transmitted reference range : 3.93 - 5.25 10*6/?L. The reference range was not used to interpret this result as normal/abnormal . HGB (test code = 7.7 g/dL 11.6-15 L 718-7) HCT (test code = 24.0 % 35.7-45.2 L 4544-3) MCV (test code = 94.9 fL 80.6-95.5 787-2) MCH (test code = 30.4 pg 25.9-32.8 785-6) MCHC (test code = 32.1 g/dL 31.6-35.1 786-4) RDW-SD (test code = 46.6 fL 39-49.9 00080-5) RDW-CV (test code = 13.7 % 12-15.5 788-0) PLT (test code = See_Comment H [Automated 777-3) message] The sy stem which generated this result transmitted reference range : 166 - 358 10*3/ ?L. The reference r madelin was not used to interpret this result as normal/abnormal . MPV (test code = 9.1 fL 9.5-12.9 L 94824-8) NRBC/100 WBC (test See_Comment [Automat ed code = 0067955503) message] The system which generated this result transmitted reference range : 0.0 - 10.0 /100 WBCs. The refer ence range was not u sed to interpret th is result as normal/abnormal . NRBC x10^3 (test code <0.01 See_Comment [Auto mated = 0990071689) message] The s ystem which generated this result transmitted reference range : 10*3/?L. The reference range was not used to interpret this result as normal/abnormal . GRAN MAT (NEUT) % 52.0 % (test code = 770-8) IMM GRAN % (test code 0.50 % = 2248608600) LYMPH % (test code = 34.7 % 736-9) MONO % (test code = 8.6 % 5905-5) EOS % (test code = 3.7 % 713-8) BASO % (test code = 0.5 % 706-2) GRAN MAT x10^3(ANC) 3.19 10*3/uL 1.88-7.09 (test code = 8579133609) IMM GRAN x10^3 (test 0.03 10*3/uL 0-0.06 code = 3964602214) LYMPH x10^3 (test code 2.13 10*3/uL 1.32-3.29 = 731-0) MONO x10^3 (test code 0.53 10*3/uL 0.33-0.92 = 742-7) EOS x10^3 (test code = 0.23 10*3/uL 0.03-0.39 711-2) BASO x10^3 (test code 0.03 10*3/uL 0.01-0.07 = 704-7) Lab Interpretation Abnormal (test code = 49042-3) [facility] [id number] 00:32:00COVID DMT InterpretationInterpretation/Recommendations: Molecular NAAT Tests for Active Infection with the SARS-CoV-2 Virus: This patient has a history of testing negative on multiple occasions for wbyHDWG-RpB-9 virus that causes COVID-19 illness, with no prior history of a positive result. The current test results are also negative. This most likely indicates that the patient does not have an active infection with the SARS-CoV-2 virus, especially if all of these tests coincide with the patient's current presentation. However, infection is not completely ruled out as the false negative rate for molecular NAAT testing using a nasopharyngeal sample can be up to 30%, mostly dependent on the timing of sample collection in relation to illness onset and any deficiencies in sampling techniques. If the patient continues to have persistent or worsening symptoms concerning for COVID-19 illness, a repeat NAAT test (PCR, Rapid ID Now, etc.) should be performed, at which time the SARS-CoV-2 virus - if present - may have reached a detectable viral load (usually peaking by the end of the first week of symptoms). Tests for IgM and/or IgG Antibodies to SARS-CoV-2 Virus: Testing for IgM and IgG antibodies 1-3 weeks after illness onset will indicate whether the patient has produced antibodies to the virus. At this time, it is not known if the production of antibodies - specifically IgG antibodies - indicates whether the patient is immune to future infections with the SARS-CoV-2 virus. Interpretation Result Comments: These interpretation comments are based upon aggregate COVID-19 test results pooled from [facility]. They apply to the following tests offered at [facility] and assume the acceptable specimen type(s) were used: A. Tests for the Identification of SARS-CoV-2 RNA (Molecular NAAT Tests): ?- SARS-CoV-2 PCR assays including [employer] Aptima, [employer] Fusion, [place] RealTime, and Hands-On Mobile Xpert Xpress. ?- SARS-CoV-2 Rapid IDNOW by the ID NOW assay. ? B. Tests for the Identification of SARS-CoV-2 Antibodies: ?- Chemi luminescent immunoassays including Hachiko SARS-CoV-2 IgM (DXI 600), Six3S Pyof-QJRK-KmF-2 IgG (Vitros 5600 and Vitros 3600), and [place] SARS-CoV-2 IgG (SHUTTLELESS LOOM WEAVER I System). These interpretations are autopopulated into [facility] based on computerized algorithms matching an interpretation code to the patient's set of test results, and a clinical pathologist evaluates the comments for accuracy. However, these comments do not consider testing a patient may have had outside of the [facility] system. If results for COVID-19 infection continue to be negative in the context of a suspected viral respiratory illness,it is possible the patient may have an infection with another respiratory virus. Influenza testing and a respiratory pathogen panel if clinically indicated may be beneficial in this setting. If there continues to be a high degree of clinical suspicion for COVID- 19 illness despite multiple negative tests on nasopharyngeal specimens, then it may be necessary to test the patient for the SARS-CoV-2 virususing lower respiratory tract samples (such as sputum, bronchoalveolar lavage fluid (BAL), tracheal aspirate, etc.). ? [facility] LABORATORY SERVICESCOVID [id number]-[id number] Rapid ID NOW (no units) ? ? Date ? Value ? 10/24/2020 ? Not Detected ? ? ? 2020 ? Not Detected ? ? ? 09/25/2020 ? Not Detected ? ? ? 09/10/2020 ? Not Detected ? ? ? 09/04/2020 ? Not Detected ? ? ? 08/17/2020 ? Not Detected ? ? ? 07/23/2020 ? Not Detected ? [facility] CBC with [id number] 11:58:00 Test Item Value Reference Range Interpretation Comments WBC (test code = See_Comment [Automated 6690-2) message] The sy stem which generated this result transmitted reference range : 4.30 - 11.10 10*3/?L. The reference range was not used to interpret this result as normal/abnormal . RBC (test code = See_Comment L [Automated 789-8) message] The sy stem which generated this result transmitted reference range : 3.93 - 5.25 10*6/?L. The reference range was not used to interpret this result as normal/abnormal . HGB (test code = 8.3 g/dL 11.6-15 L 718-7) HCT (test code = 25.8 % 35.7-45.2 L 4544-3) MCV (test code = 94.9 fL 80.6-95.5 787-2) MCH (test code = 30.5 pg 25.9-32.8 785-6) MCHC (test code = 32.2 g/dL 31.6-35.1 786-4) RDW-SD (test code = 47.2 fL 39-49.9 44666-8) RDW-CV (test code = 14.5 % 12-15.5 788-0) PLT (test code = See_Comment H [Automated 777-3) message] The sy stem which generated this result transmitted reference range : 166 - 358 10*3/ ?L. The reference r madelin was not used to interpret this result as normal/abnormal . MPV (test code = 10.1 fL 9.5-12.9 44867-3) NRBC/100 WBC (test See_Comment [Automat ed code = 3608369938) message] The system which generated this result transmitted reference range : 0.0 - 10.0 /100 WBCs. The refer ence range was not u sed to interpret th is result as normal/abnormal . NRBC x10^3 (test code <0.01 See_Comment [Auto mated = 1677841443) message] The s ystem which generated this result transmitted reference range : 10*3/?L. The reference range was not used to interpret this result as normal/abnormal . GRAN MAT (NEUT) % 50.3 % (test code = 770-8) IMM GRAN % (test code 0.50 % = 7318086334) LYMPH % (test code = 36.9 % 736-9) MONO % (test code = 7.6 % 5905-5) EOS % (test code = 4.2 % 713-8) BASO % (test code = 0.5 % 706-2) GRAN MAT x10^3(ANC) 2.76 10*3/uL 1.88-7.09 (test code = 4161681591) IMM GRAN x10^3 (test 0.03 10*3/uL 0-0.06 code = 6984139307) LYMPH x10^3 (test code 2.03 10*3/uL 1.32-3.29 = 731-0) MONO x10^3 (test code 0.42 10*3/uL 0.33-0.92 = 742-7) EOS x10^3 (test code = 0.23 10*3/uL 0.03-0.39 711-2) BASO x10^3 (test code 0.03 10*3/uL 0.01-0.07 = 704-7) Lab Interpretation Abnormal (test code = 92452-9) [facility] [id number] 04:43:00 Test Item Value Reference Range Interpretation Comments MAGNESIUM (test code = 8077952550) 1.0 mg/dL 1.7-2.4 L Lab Interpretation (test code = Abnormal 30025-0) [facility] Metabolic Panel (NA, K, CL, CO2, GLUCOSE, BUN, CREATININE, CA)2020-10-26 04:43:00 Test Item Value Reference Range Interpretation Comments NA (test code = 136 mmol/L 135-145 5077043455) K (test code = 2.8 mmol/L 3.5-5 LL 3353405126) CL (test code = 97 mmol/L 98-108 L 3371336378) CO2 TOTAL (test code = 35 mmol/L 23-31 H 6147967125) AGAP (test code = 2-16 0859380828) BUN (test code = 3 mg/dL 7-23 L 0789116050) GLUCOSE (test code = 116 mg/dL 70-110 H 2473281679) CREATININE (test code = 0.81 mg/dL 0.5-1.04 2161923761) CALCIUM (test code = 7.2 mg/dL 8.6-10.6 L 8602726305) eGFR Calculation mL/min/1.73m2 (Non-) (test code = 5912014888) eGFR Calculation mL/min/1.73m2 () (test code = 6176517209) RAUDEL (test code = RAUDEL) Association of Glomerular Filtration Rate (GFR) and Staging of Kidney Disease* + --+ --+ ------+| GFR (mL/min/1.73 m2) ?| With Kidney Damage ?| ?Without Kidney Damage+ --------+ --------+ +| ?>90 ?| ?Stage one ?| ? Normal ?+ ---+ ---+ -------+| ?60-89 ?| ?Stage two ?| ? Decreased GFR ? + --+ --+ ------+| ?30-59 ?| ?Stage three ?| ? Stage three ? + --+ --+ ------+| ?15-29 ?| ?Stage four ? | ? Stage four ?+ ---+ ---+ -------+| ?<15 (or dialysis) ? ?| ?Stage five ? | ? Stage five ?+ ---+ ---+ -------+ *Each stage assumes the associated GFR level has been in effect for at least three months. ?Stages 1 to 5, with or without kidney disease, indicate chronic kidney disease. Notes: Determination of stages one and two (with eGFR >59mL/min/1.73 m2) requires estimation of kidney damage for at least three months as defined by structural or functional abnormalities of the kidney, manifested by either:Pathological abnormalities or Markers of kidney damage (including abnormalities in the composition of the blood or urine or abnormalities in imaging tests). Lab Interpretation Abnormal (test code = 79753-2) [facility] CenterPhosphorus [id number] 04:35:00 Test Item Value Reference Range Interpretation Comments PHOSPHORUS (test code = 7700509023) 3.0 mg/dL 2.5-5 Lab Interpretation (test code = Normal 00499-6) [facility] with [id number] 04:11:00 Test Item Value Reference Range Interpretation Comments WBC (test code = See_Comment [Automated 6690-2) message] The sy stem which generated this result transmitted reference range : 4.30 - 11.10 10*3/?L. The reference range was not used to interpret this result as normal/abnormal . RBC (test code = See_Comment L [Automated 789-8) message] The sy stem which generated this result transmitted reference range : 3.93 - 5.25 10*6/?L. The reference range was not used to interpret this result as normal/abnormal . HGB (test code = 7.5 g/dL 11.6-15 L 718-7) HCT (test code = 22.6 % 35.7-45.2 L 4544-3) MCV (test code = 93.4 fL 80.6-95.5 787-2) MCH (test code = 31.0 pg 25.9-32.8 785-6) MCHC (test code = 33.2 g/dL 31.6-35.1 786-4) RDW-SD (test code = 45.6 fL 39-49.9 47978-1) RDW-CV (test code = 13.4 % 12-15.5 788-0) PLT (test code = See_Comment H [Automated 777-3) message] The sy stem which generated this result transmitted reference range : 166 - 358 10*3/ ?L. The reference r madelin was not used to interpret this result as normal/abnormal . MPV (test code = 9.2 fL 9.5-12.9 L 08353-1) NRBC/100 WBC (test See_Comment [Automat ed code = 0726728041) message] The system which generated this result transmitted reference range : 0.0 - 10.0 /100 WBCs. The refer ence range was not u sed to interpret th is result as normal/abnormal . NRBC x10^3 (test code <0.01 See_Comment [Auto mated = 5660028723) message] The s ystem which generated this result transmitted reference range : 10*3/?L. The reference range was not used to interpret this result as normal/abnormal . GRAN MAT (NEUT) % 55.9 % (test code = 770-8) IMM GRAN % (test code 0.40 % = 3189592204) LYMPH % (test code = 31.9 % 736-9) MONO % (test code = 8.4 % 5905-5) EOS % (test code = 3.1 % 713-8) BASO % (test code = 0.3 % 706-2) GRAN MAT x10^3(ANC) 3.80 10*3/uL 1.88-7.09 (test code = 5346481501) IMM GRAN x10^3 (test 0.03 10*3/uL 0-0.06 code = 2900737044) LYMPH x10^3 (test code 2.17 10*3/uL 1.32-3.29 = 731-0) MONO x10^3 (test code 0.57 10*3/uL 0.33-0.92 = 742-7) EOS x10^3 (test code = 0.21 10*3/uL 0.03-0.39 711-2) BASO x10^3 (test code <0.03 0.01-0.07 = 704-7) Lab Interpretation Abnormal (test code = 88914-5) [facility] W [id number] 14:39:02 1. ?Postsurgical changes of recent ileostomy reversal surgery with intactanastomosis margins in thedistal ileum. 2. ?Suspected dehiscence of midline supraumbilical fascia withapproximately 1.6 cm opening and herniation of omental fat through thedefect. 3. ?Multiple subcutaneous fluid collections, lik mamadou postsurgical seromas. A5.2 cm irregularly-shaped thick-walled fluid collection in the pelvisbetween the bladder and the rectum, possibly an abscess. Anotherdifferential consideration is an enlargedcorpus luteum, as seen on theprior imaging. Please correlate clinically. 4. ?Diffuse gastric and small bowel wall thickening with mild dilatation ofjejunum, likely due to nonspecific inflammatory changes. Mild postoperativeileus may be present. Preliminary Report Dictated by Resident: Fanny Gonzales ?MD. Kristina, have reviewed this study and agree with theabove report.EXAM: CT ABDOMEN/PELVIS WITH CONTRAST HISTORY: ?abdominal pain , outside image. Recent ileostomy reversal. ? COMPARISON:CT abdomen and pelvis 09/01/2020 TECHNIQUE AND FINDINGS: CT [facility], labeled with the patients name, wassubmitted for review. CT abdomen and pelvis was obtained from the levellung bases to the proximal thighs. Images were loaded to the PACS archiveand reviewed on a PACS workstation. FINDINGS: LOWER THORAX: Linear atelectasis in the lower lobes. LIVER: Normal contour. Focal fatty infiltration along the falciformligament. GALLBLADDER AND BILIARY TREE: No biliary ductal dilation. The gallbladderis decompressed, unremarkable. SPLEEN: No splenomegaly. PANCREAS: No ductal dilation or masses. ADRENAL GLANDS: No adrenal nodules. KIDNEYS: No hydronephrosis, stones, or masses. PERITONEUM AND RETROPERITONEUM: No intra-abdominal free air.Diffusemesenteric fat stranding and small volume ascites in the perihepatic area. Surgical site dehiscence is suspected on the midline supraumbilical fasciaat the level of L3 with fascial opening measuring 1.6 cm (series 501:46).Bulging of omentum is noted with stranding of the herniated portion. A 2.1x 1.9 x 4.9 cm fluid collection is noted in the overlying subcutaneoustissue underneath the surgicalstaples, suggestive of postsurgical seroma. A 2.0 x 4.4 x 2.8 cm simple fluid collection overlies the previous stomasite in the right hemiabdomen. No definite evidence of dehiscence is notedat this surgical site, although limited visualization of fascia due toprominent swelling. LYMPH NODES: No lymphadenopathy. GI TRACT: Diffuse gastric and small bowel wall thickening. The jejunum ismildly dilated up to 3.5 cm in the left hemiabdomen (502:56). No discretetransient point is identified. Changes of ileostomy reversal is noted inthe right lower quadrant with distal ileum anastomosis. Mild distal colonicwall thickening. PELVIS/BLADDER: The urinary bladder is decompressed, mildly thickenedlikely due to adjacent swelling. Prior hysterectomy. Previously noted 2.8cm corpus luteal cyst is not clearly visualized in the current study. A 2.3 x 5.2 x 3.1 cm with an enhancing wall superior to the vaginal stump,between the rectum and bladder. VESSELS: Unremarkable. BONES AND SOFT TISSUES: No suspicious lytic or sclerotic bony lesions.Degenerative changes in the bilateral hips. [facility], Radiant Results Inft User- 10/25/2020 8:40 AM CSTEXAM: CT ABDOMEN/PELVIS WITH CONTRASTHISTORY: abdominal pain , outside image. Recent ileostomy reversal. COMPARISON: CT abdomen and pelvis 09/01/2020TECHNIQUE AND FINDINGS: [facility] wassub[facility] for review. CT abdomen and pelvis was obtained from the levellung bases to the proximal thighs. Images were loaded to the PACS archiveand reviewed on a PACS workstation. FINDINGS:LOWER THORAX: Linear atelectasis in the lower lobes.LIVER: Normal contour. Focal fatty infiltration along the falciformligament.GALLBLADDER AND BILIARY TREE: No biliary ductal dilation. The gallbladderis decompressed, unremarkable.SPLEEN: No splenomegaly.PANCREAS: No ductal dilation or masses.ADRENALGLANDS: No adrenal nodules.KIDNEYS: No hydronephrosis, stones, or masses.PERITONEUM AND RETROPERITONEUM: No intra-abdominal free air. Diffusemesenteric fat stranding and small volume ascites in the perihepatic area.Surgical site dehiscence is suspected on the midline supraumbilical fasciaat the level of L3 with fascial opening measuring 1.6 cm (series 501:46).Bulging of omentum is noted with stranding of the herniated portion. A 2.1x 1.9 x 4.9 cm fluid collection is noted in the overlying subcutaneoustissue underneath the surgical asia, suggestive of postsurgical seroma.A 2.0 x 4.4 x 2.8 cm simple fluid collection overlies the previous stomasite in the right hemiabdomen. No definite evidence ofdehiscence is notedat this surgical site, although limited visualization of fascia due toprominent swelling.LYMPH NODES: No lymphadenopathy.GI TRACT: Diffuse gastric and small bowel wall thickening. The jejunum ismildly dilated up to 3.5 cm in the left hemiabdomen (502:56). No discretetransient point is identified. Changes of ileostomy reversal is noted inthe right lower quadrant with distal ileum anastomosis. Mild distal colonicwall thickening.PELVIS/BLADDER: The urinary bladder is decompressed, mildly thickenedlikely due to adjacent swelling. Prior hysterectomy. Previously noted 2.8cm corpus luteal cyst is not clearly visualized in the current study.A 2.3 x 5.2 x 3.1 cm with an enhancing wall superior to the vaginal stump,between the rectum and bladder.VESSELS: Unremarkable.BONES AND SOFT TISSUES: No suspicious lytic or sclerotic bony lesions.Degenerative changes in the bilateral hips.IMPRESSION1. Postsurgical changes of recent ileostomy reversal surgery with intactanastomosis margins in thedistal ileum.2. Suspected dehiscence of midline supraumbilical fascia withapproximately 1.6 cm opening and herniation of omental fat through thedefect.3. Multiple subcutaneous fluid collections, likel y postsurgical seromas. A5.2 cm irregularly-shaped thick-walled fluid collection in the pelvisbetween the bladder and the rectum, possibly an abscess. Anotherdifferential consideration is an enlarged corpus luteum, as seen on theprior imaging. Please correlate clinically.4. Diffuse gastric and small b owel wall thickening with mild dilatation ofjejunum, likely due to nonspecific inflammatory changes.Mild postoperativeileus may be present.Preliminary Report Dictated by Resident: Fanny Adler MD., have reviewed this study and agree with theabove report.[facility] COVID-19 (ID NOW RAPID TESTING)2020-10-25 01:48:00 Test Item Value Reference Range Interpretation Comments SARS-CoV-2 Rapid ID NOW Not Detected Not Detected (test code = 89196-5) RAUDEL (test code = RAUDEL) ID NOW COVID-19 Assay is an isothermal nucleic acid amplification test intended for the qualitative detection of nucleic acid from SARS-CoV-2 viral RNA in nasopharyngeal ([employer]) specimens. It is used under Emergency Use Authorization (EUA) by FDA. The limit of detection (LOD) of the assay is 125 Genome Equivalents/mL. A positive result is indicative of the presence of SARS-CoV-2 RNA. ?Clinical correlation with patient history and other diagnostic [...] specimen for repeat patient testing if clinically indicated.ID NOW COVID-19 Assay is an isothermal nucleic acid amplification test intended for the qualitative detection of nucleic acid from SARS-CoV-2 viral RNA in nasopharyngeal ([employer]) specimens. It is used under Emergency Use Authorization (EUA) by FDA. The limit of detection (LOD) of the assay is 125 Genome Equivalents/mL. A positive result is indicative of the presence of SARS-CoV-2 RNA. ?Clinical correlation with patient history and other diagnostic [...] for repeat patient testing if clinically indicated. Lab Interpretation Normal (test code = 92639-1) [facility] METABOLIC PANEL (NA, K, CL, CO2, GLUCOSE, BUN, CREATININE, CA)2020-10-24 23:16:00 Test Item Value Reference Range Interpretation Comments NA (test code = 137 mmol/L 135-145 8146776739) K (test code = 3.5 mmol/L 3.5-5 6028422553) CL (test code = 101 mmol/L 98-108 9898924200) CO2 TOTAL (test code = 31 mmol/L 23-31 1550221533) AGAP (test code = 2-16 6596216737) BUN (test code = 5 mg/dL 7-23 L 1486078196) GLUCOSE (test code = 80 mg/dL 70-110 6418047091) CREATININE (test code = 0.57 mg/dL 0.5-1.04 5287668457) CALCIUM (test code = 7.4 mg/dL 8.6-10.6 L 4192712376) eGFR Calculation mL/min/1.73m2 (Non-) (test code = 3443592572) eGFR Calculation mL/min/1.73m2 () (test code = 7875509136) RAUDEL (test code = RAUDEL) Association of Glomerular Filtration Rate (GFR) and Staging of Kidney Disease* + --+ --+ ------+| GFR (mL/min/1.73 m2) ?| With Kidney Damage ?| ?Without Kidney Damage+ --------+ --------+ +| ?>90 ?| ?Stage one ?| ? Normal ?+ ---+ ---+ -------+| ?60-89 ?| ?Stage two ?| ? Decreased GFR ? + --+ --+ ------+| ?30-59 ?| ?Stage three ?| ? Stage three ? + --+ --+ ------+| ?15-29 ?| ?Stage four ? | ? Stage four ?+ ---+ ---+ -------+| ?<15 (or dialysis) ? ?| ?Stage five ? | ? Stage five ?+ ---+ ---+ -------+ *Each stage assumes the associated GFR level has been in effect for at least three months. ?Stages 1 to 5, with or without kidney disease, indicate chronic kidney disease. Notes: Determination of stages one and two (with eGFR >59mL/min/1.73 m2) requires estimation of kidney damage for at least three months as defined by structural or functional abnormalities of the kidney, manifested by either:Pathological abnormalities or Markers of kidney damage (including abnormalities in the composition of the blood or urine or abnormalities in imaging tests). Lab Interpretation Abnormal (test code = 05724-1) [facility] WITH [id number] 23:09:00 Test Item Value Reference Range Interpretation Comments WBC (test code = See_Comment [Automated 6690-2) message] The sy stem which generated this result transmitted reference range : 4.30 - 11.10 10*3/?L. The reference range was not used to interpret this result as normal/abnormal . RBC (test code = See_Comment L [Automated 789-8) message] The sy stem which generated this result transmitted reference range : 3.93 - 5.25 10*6/?L. The reference range was not used to interpret this result as normal/abnormal . HGB (test code = 8.7 g/dL 11.6-15 L 718-7) HCT (test code = 27.0 % 35.7-45.2 L 4544-3) MCV (test code = 93.8 fL 80.6-95.5 787-2) MCH (test code = 30.2 pg 25.9-32.8 785-6) MCHC (test code = 32.2 g/dL 31.6-35.1 786-4) RDW-SD (test code = 46.5 fL 39-49.9 60054-1) RDW-CV (test code = 13.4 % 12-15.5 788-0) PLT (test code = See_Comment H [Automated 777-3) message] The sy stem which generated this result transmitted reference range : 166 - 358 10*3/ ?L. The reference r madelin was not used to interpret this result as normal/abnormal . MPV (test code = 9.4 fL 9.5-12.9 L 36292-8) NRBC/100 WBC (test See_Comment [Automat ed code = 1716337636) message] The system which generated this result transmitted reference range : 0.0 - 10.0 /100 WBCs. The refer ence range was not u sed to interpret th is result as normal/abnormal . NRBC x10^3 (test code <0.01 See_Comment [Auto mated = 1609433621) message] The s ystem which generated this result transmitted reference range : 10*3/?L. The reference range was not used to interpret this result as normal/abnormal . GRAN MAT (NEUT) % 54.7 % (test code = 770-8) IMM GRAN % (test code 0.50 % = 2730473435) LYMPH % (test code = 35.9 % 736-9) MONO % (test code = 6.3 % 5905-5) EOS % (test code = 2.3 % 713-8) BASO % (test code = 0.3 % 706-2) GRAN MAT x10^3(ANC) 3.37 10*3/uL 1.88-7.09 (test code = 6983927307) IMM GRAN x10^3 (test 0.03 10*3/uL 0-0.06 code = 8536585534) LYMPH x10^3 (test code 2.21 10*3/uL 1.32-3.29 = 731-0) MONO x10^3 (test code 0.39 10*3/uL 0.33-0.92 = 742-7) EOS x10^3 (test code = 0.14 10*3/uL 0.03-0.39 711-2) BASO x10^3 (test code <0.03 0.01-0.07 = 704-7) Lab Interpretation Abnormal (test code = 04508-2) [facility] [id number] 17:18:00 Test Item Value Reference Range Interpretation Comments Clostridioides (Clostridium) Negative Negative difficile (test code = 75674-4) Lab Interpretation (test code = Normal 79822-3) [facility] (NA, K, CL, CO2, GLUCOSE, BUN, CREATININE, CA)2020-10-17 23:42:00 Test Item Value Reference Range Interpretation Comments NA (test code = 135 mmol/L 135-145 0896952395) K (test code = 4.0 mmol/L 3.5-5 1400838554) CL (test code = 105 mmol/L 98-108 5428627002) CO2 TOTAL (test code = 22 mmol/L 23-31 L 2952171385) AGAP (test code = 2-16 3545108940) BUN (test code = 8 mg/dL 7-23 2316053000) GLUCOSE (test code = 127 mg/dL 70-110 H 5634691053) CREATININE (test code = 0.96 mg/dL 0.5-1.04 6712589633) CALCIUM (test code = 8.7 mg/dL 8.6-10.6 5735832846) eGFR Calculation mL/min/1.73m2 (Non-) (test code = 0961766258) eGFR Calculation mL/min/1.73m2 () (test code = 3734123880) RAUDEL (test code = RAUDEL) Association of Glomerular Filtration Rate (GFR) and Staging of Kidney Disease* + --+ --+ ------+| GFR (mL/min/1.73 m2) ?| With Kidney Damage ?| ?Without Kidney Damage+ --------+ --------+ +| ?>90 ?| ?Stage one ?| ? Normal ?+ ---+ ---+ -------+| ?60-89 ?| ?Stage two ?| ? Decreased GFR ? + --+ --+ ------+| ?30-59 ?| ?Stage three ?| ? Stage three ? + --+ --+ ------+| ?15-29 ?| ?Stage four ? | ? Stage four ?+ ---+ ---+ -------+| ?<15 (or dialysis) ? ?| ?Stage five ? | ? Stage five ?+ ---+ ---+ -------+ *Each stage assumes the associated GFR level has been in effect for at least three months. ?Stages 1 to 5, with or without kidney disease, indicate chronic kidney disease. Notes: Determination of stages one and two (with eGFR >59mL/min/1.73 m2) requires estimation of kidney damage for at least three months as defined by structural or functional abnormalities of the kidney, manifested by either:Pathological abnormalities or Markers of kidney damage (including abnormalities in the composition of the blood or urine or abnormalities in imaging tests). Lab Interpretation Abnormal (test code = 27235-3) [facility] [id number] 19:12:00 Test Item Value Reference Range Interpretation Comments Case Report (test code Surgical Pathology ? ? = 6768831639) ?Case: [id number] ? Authorizing Provider: ?Darren Clark MD ?Collected: ? 10/14/2020 0901 ?Ordering Location: ? ? [facility] OR ? Received: ?10/14/2020 1106 ? Department ? Pathologist: ? Simón, MD Marian ? Specimens: ? A) - STOMA, Ileostomy ? B) - COLON, Ileocolic anastamosis ? Final Diagnosis (test z1xeyBGzTZWii0mtSYTggT code = 9640198548) FuZzEwMzNcZnRuYmpcdWMx WHxhskCvYJfwe5XmJ5LyAj AwMFxhbnNpXGRlZmxhbmcx XWEiPMI0cxEsSUEmVQviXB NnHUkiFy1boMNwoWnkMbAm UOKjb8cdimPXwuzvwHz2v0 ejGWLiNaC1yZHlVXrcK9ug fgMfrJQyWTBjTTm0yC67JE AviZ5koGDrTZwxybWeFgF0 UHxyIZGrTkN4VBLgyQFoKG JcG8peYBByQTxcGZRtUSmm bXQmVJG9xQiby0P6wLWbfF JwcDptXkVxNlOzQKBMr5Qh VUz9cCflR4GhFYGfReF8fK QgUGFyYWdyYXBoIEZvbnQ7 oI02YAeiziM4gLEpa9Ogl5 5yg121qG4tnWQaJKY6EMZp GMRnaVWpGSYqUZL2XPVqxF LwY6vwINgeBB3vagaaQOX5 MFxtYXJndDcyMFxtYXJnYj GmkHPzHWOvzKooSBizs905 YKL6MuZkCY6rF0Wlp4D0uF 9maXRcZGVmdGFiNzIwXGZv to5xgFQgDPwrc8IxAGU6if B6dHEjhCAbEWUnGI33Fqxa r5XoIndcMJV3QEEyroEad8 Zhs0mfJdZpxxMhV6fmU2Kq ZHJoZWFkXHBnYnJkcmZvb3 Mxs8GfmGQgiRw0d4anDRAp IKNdwQjag1juRDS4NNRoW9 Y3uXMdh9hqBKqjDNKuuPW1 rwAqMHCdoKZsR9OcqU9rTP sqGZ6szqx7d7qjTfGcZP4k gprts1ibRXmsAYNoANJ9Gy NxAUFbu1YkkyntLgRpx2Ky sJZcRRcoE09kr083NYWzmx GvR0zflTAypkzsgVVoradp UOqkdzZ9EHQcCGKvEXcbGW YxXGZzMjBcbGFuZzEwMzNc aGljaFxmMVxkYmNoXGYxXG knH1phJtKqBdXtZEovGSIx EY8nI34NB35jDKiRYD8MXJ 3PRMCBKU9JGZugNBcCRMRM K791ZWJdxwNyIQIsUA7kSc KRSNuRBXRBHX9fBE2HWZiU KBVTATQPF9BYJLHMUUCOYS CNE9GVILMWUOJKUspIP6YS I58mJL3ANGJGQfYUC5EvPC MAQ2tCEahoaSVcYXMoPPPr ROQdD32ZF9cNRIQMIRFSEM DDSBfLWX9ICC3UYWadZFHp tZNuOUZpMDLYGQ9KDVJBNU VLO66WHTLbQX2MC3VVGS2V KGQlLUCHF6qPPW9CTjshJD IgICAgICAtIEJFTklHTiBD J7nQFdCRKhUcSYwAXWybGD wXF3EQYXtHXHjvA02QH3MQ UXSRMDHUD6ULNWadU14UH4 fGNDHOEMEYLVSOYQaLPZ1P K6yIS3ekZMIsVDJtVMAiCH AJEeJCMP8DZ7OET9jbKYV7 s0goiWWySUBmjOCbHlQxMU FiZTZwu2ufBNFeqYDpKvMi MzNcZnRuYmpcdWMxXGRlZm Ijg7mtm372kEJjt5yrBLTm LpN3lZTuQZSacIimaec9iG cxWpJhQDKnu0gjogZjYoOf ANLhEPMhRUPunFHxQ166DK OyMXtvs0jig3FjPWZwgTOc l0Z1FDQUOUfsSoCkX820s7 ktu5tukrDnaFO0JENuXUS6 FMdulpZqzkD1GPkgvWWaRt J1KUrudkTqBCkacbAcacSm Nda5EWGcI068MAY9oYxyw4 dzFWM8KMUaNSDfMszwMm1o mZSgJ546VWMvBMCHSXVlmU w6UZUczzBtecEfkBQRy291 B099q1daHHJjpxBznPiOtq cmf6neV924LBGngKDkrtFy UtMmCAFoeADlqPI0NPNlYU 3nlovcSRsvOUxcTMCwhnR1 YWEkkPNjD5WnDLQzKY4fmh paWTS5ETmoZRFeXAH8YoRg NYAuj1Jtoqj4UnYwcv9ese 98GGQ9k3TqeRbnDNI7JLF7 WtZrBk0caEEdHBKaNP6cLv MeaBPeVNBond99eWweAFdf ofMasL1wQxCyKJDumZJiPB CqAS7dmDBbDDVjuG9clcsp XHBnYnJkcmhlYWRccGdicm ZwVu9sxOosVXY6BTiiX7yb uM8mMyA8MCroY5xsvB1aXG a7VRffpHS9UHQrcN8bJG9b vtams0soQArnJLddBYTufj J9clG8MJEkiYDhN7LfoN9m EWNgPS4paomsw9mxBEI8ED ltMMSuSFD1ZdPxTJQkc4Qo kko4UvRav3OngRWqBZysN0 2fm899LIQbplDfX4actYVm kcneeXEyxqycHGamiuC7HN FsXHBsYWluXGYxXGZzMjBc bGFuZzEwMzNcaGljaFxmMV vmGiIwTWEdVAevS8wpYzDa X9QbLKClAoUrjVMbWMtyqZ F7JICqBSHts88lwMq2WFNm vkrei5DeOIGteKOaeKRquP 8wizIig3mnPHCaXPJyUHWz R7CsELP1gSOfBICzdQFcoL G0ZQ7qrlNwKW7bWDBcZdic cmVzaWRlbnRzLCBmZWxsb3 mdTR9rOXTkoCklyO8rwHL1 LVLik2gdfRFbdJLbm6zaz4 UgbmFtZShzKSBtYXkgYXBw EUZmAC0fQWXqsAEgqbGdf1 L2JplkhWXwwnfrEatkhkY1 FTdihwpqHHMdDQtsM4slDb NxNPWrwQozTacdc9ObFYTy XGZzMjhccGFyfX0= Clinical Information Ileostomy care [Z43.2] (test code = 2360192800) Gross Description (test p1kfmQNiLXPnvVUaNvAnCR code = 1663435705) YvBWNez6lmDOUtgDKwCjQa MzNcZnRuYmpcdWMxXGRlZm Umc8hfz066oBSbp1zmBFDb OjD9fYExLXGtbHOoS116HN LfFBjay7hdw8SgJNRnmNZe n4V9BQVCmkhrsWv5sScbV8 1pb4B3OfxlQ0xoEXCuXDJj Y5YaIF0jLCUlSgz8CAB3XP Q9YBOcWMFvD2KdTB9kAIYb zSLoEAk8s6ppuHwcQGRkKP W1u5msFGwklrXqTM0nyz6x dXu2c0syjsEpVVEaJVAllZ QESIEaU1ItkKfpTe4mlBh5 lPorTicoRNI4Wmk2XP8jkm 47zas5bNdbKIZazuliIrS3 UKdyJMDdndixCUt2GToiDM CtzJHdRBSlpDNxB0JwJSqp TI2kfpl7RmEwFE1khbcwSV imSWUbQCE8NrXlDEFsj5Gy gxbuLaXyum2phw87WNL9v7 VdbDcfMRI4HCD5SfCtSn2j mXHhBKHsGC7xVmYprQJsQS Cgbl05rQgaGArjkrOuxN8i BnFlUUDvmYItYIWnZH7fzR UoJIBmgI0atqpsMNJzMuVl koowQZIchBpwwzFuPn6amI ecDPW7KLfwY5hwsW4rDiS3 SOckW9vvvM9bCQb6XTgrrB Q8WTVgqC4rRD4ncvsdy0il EWY8XTwlOYOskeK5gvToIV EhzTFdX5QehD54MkOdnQEa V5KxzY9zCOhiSDAenjw8Jt TgZg9yjYIsvXD0AKnhCckj YWdlXHBnbmNvbnRccGduZG VjXHBsYWluXHBsYWluXGYw UKXpOiFuaOdntOekgP2hCv CsBeTkCYldCB7oOTFtX3vj oGNqUGBuMRQkT0idZxUlkZ 9jaFxmMVxmczIwIFNwZWNp eSEjFWAxbaQsDFx9XOAhMw Zhi7hwaAZcDGlmKAF1eSIq mEI3lPVcjAbmMG8brUGfSC WIMU09sUCpplzbPcHbFrNr oHcxa2PeVEQptSLgg4CasU htt4WzoGVxLFOyWKNft03e zYC1nbCcLgHtplOpuXAfx1 GbzFohoUMiYHKbp18lj4Fe R4amUE8wg2j8pEMqUAK6qg xdK6RydBwhf6H3dQDyKVGs mF2eYPLjyhVdNSNltXKfwA VyGXIbn2R8UFZfH99zpxSt r6JiKe81IXaoNEPjOAOsdV SaulKdRU5knKzmEI7uAOZq NiBjbSBkaWFtZXRlcikuIC CGnMEkm8QnTX68U86cYEBi yJM4gRBeg1VbgRGtsUKcAZ SlksLbsXBgkLBqrN0hO1Sw tK52EL6ds1g1yHFyCJAdsK 1ajennLE3bOVBvhRDkcRJj WEIxfK1iWYWcUwStnGdcID BvJOLdmBXeuXDkfHZsS5eb ULegKUNnkM26FATqMS5sMH XaPAWxoHDnvC6rcaQsqbOy lGXsPPMbslH5TILbmA8vBE VucmVtYXJrYWJsZSBpbnRl m7JguiQwIA99Q58xCM1uPz ZrczKhIH69GOZcytGpYkFl dJ64tFpef43gb7DssXEmwW VyJBmbdQwlvpAnBXF3mJ7y jhFtrpDkj6OnfBr3aABgIT FzIEExXHBsYWluXGYwXGZz MjBcbGFuZzEwMzNcaGljaF fwGAspMdZsJARaAPxkO5bx LvWvYsJwINu9WSOfWEPxWh t2WPZkKMwzVRIhDZVpIqUy bGFuZzEwMzNcaGljaFxmMV hqChRbFSOxZIcyT3cmEuMm TqDpRNXGMv3xcIBsBFZkwm OXrJVgoB0zceFZFOFbC7Ca dmVkIGZyZXNoIGxhYmVsZW Iyt5f0rUE5xYLcoRZ5aKIz fCgfTW8hiQRjSECVPP74sB PudxwgDlGrEdUkhVler5Jk ZVNihPGbF20lpBMaOA0gt1 QlaR3bsARqUIRiRXJbx35h bVQ0vwZyPwDgtkUojxNxD8 VnTKJpj3FouMVtoPEsXgIv ccUdcU5qp2PxVAQrn5jzfJ V0uIRsKL99uOIrfResVFK8 VFZsSVKhFCCswW0aFFu6On YlqAByQpSdlOEnHfxtY35u FlKsY5DfqOipDZ7pboohoi QoOEJsGPAlyAYlg5UfQUFh DNIultYfktX8ttVgqYNtm8 XhfIJqA74ix14yOaAtqpUk dYxtOGsfdMBns6OuFFNtPY YwkeHvIY65MzQfHNjeQLew tHYyj5LpEGmlfoYzAHAukG ofxYJszPDlt7a6pP5dMEyi bHltcGhvaWQgaHlwZXJwbG OjbTDlVGMsYPItYV7qDO9b XNSyoMWtg2RmtJY2sDAvCU MzJ3Jxb29jVQLjSGRoyNZc dNW0WMNvDCYvSuUrvWbcoO 0bZsPhSiHaPYmtXI6dLUJf C2lzxWGtHJWyECHnH1gdIp YylB0wlSklXOyjykDsKVH4 AdLlVSoqAHMrfYggiJ8rIe VzHeDdSNeyAM9kTMEwB5ur xBPiZLGcXLKdT3zbOkAvzG 9jaFxmMVxmczIwIEIyLlxw YXJccGFyXHBhcmRccGxhaW 5cZjBcZnMyNFxwbGFpblxm MVxmczIwXGxhbmcxMDMzXG ypZ6mxHsZbOSFgmOzpDLev e0BuOFAlWYZjCpSbPAX7tM RMsH76GWVnLZGnBEYfmMrm pW6gaOR0UHLuy8deoCDnkE lccGFyfQ== Embedded Images (test code = 8946968758) [facility]MR[facility] by PCR, [id number] 21:21:00 Test Item Value Reference Range Interpretation Comments MSSA Screen by Phill BERMUDEZ (test code Negative Negative = 80988-3) MRSA/MSSA Positive? (test code = No No [id number]) Lab Interpretation (test code = Normal 25257-8) [facility] CenterUrinalysis2020-11-18 06:06:00 Test Item Value Reference Range Interpretation Comments APPEARANCE (test code = Cloudy Clear A 4058050876) COLOR (test code = Kathleen Yellow A 6004820511) PH (test code = 4.8-8.0 8920645144) SP GRAVITY (test code = 1.003-1.030 1512181862) GLU U QUAL (test code = Normal Normal 7090809518) BLOOD (test code = 1+ Negative A 5791490454) KETONES (test code = 5 mg/dL Negative A 6610252114) PROTEIN (test code = 100 mg/dL Negative A 2887-8) UROBILIN (test code = 2.0 mg/dL Normal A 8990064566) BILIRUBIN (test code = Negative Negative 3679031595) NITRITE (test code = Negative Negative 6967100742) LEUK CHELY (test code = Negative Negative 7334942659) RBC/HPF (test code = See_Comment H [Autom ated message] 4762471104) The system [employer] generated this result transmit carl reference range : 0 - 3 HPF. The refe rence range was not u sed to interpret th is result as normal/abnormal . WBC/HPF (test code = See_Comment [Autom ated message] 3250366566) The system [employer] generated this result transmit carl reference range : 0 - 5 HPF. The refe rence range was not u sed to interpret th is result as normal/abnormal . BACTERIA (test code = Moderate Negative A 2227652609) MUCOUS (test code = Marked Negative LPF A 0897461946) SQ EPITH (test code = HPF 3067290568) CA OXALATE (test code = See_Comment H [Au tomated message] 7019402213) The system [employer] generated this result transmit carl reference range : <=1 HPF. The refere nce range was not u sed to interpret th is result as normal/abnormal . HYAL CAST (test code = See_Comment H [Aut omated message] 1305418504) The system [employer] generated this result transmit carl reference range : <=2 LPF. The refere nce range was not u sed to interpret th is result as normal/abnormal . GRAN CASTS (test code = See_Comment H [Au tomated message] 1532639827) The system [employer] generated this result transmit carl reference range : <=1 LPF. The refere nce range was not u sed to interpret th is result as normal/abnormal . Lab Interpretation (test Abnormal code = 45065-2) [facility] CenterHep[facility] (ALB, T.PRO, BILI T, BU/BC, ALT, AST, ALK PHOS)2020-10-02 05:46:00 Test Item Value Reference Range Interpretation Comments TOTAL BILI (test code = 9328774600) 1.0 mg/dL 0.1-1.1 BILI UNCON (test code = 9937949116) 0.6 mg/dL 0.1-1.1 BILI CONJ (test code = 3151690357) 0.0 mg/dL 0-0.3 T PROTEIN (test code = 5973221891) 9.9 g/dL 6.3-8.2 H ALBUMIN (test code = 9950252875) 5.4 g/dL 3.5-5 H ALK PHOS (test code = 4650324708) 153 U/L 34-122 H ALTv (test code = 1742-6) 62 U/L 5-35 H AST(SGOT) (test code = 4865639413) 51 U/L 13-40 H Lab Interpretation (test code = Abnormal 71071-2) [facility] CenterLipase [id number] 05:46:00 Test Item Value Reference Range Interpretation Comments LIPASE (test code = 0476401037) 117 U/L 0-220 Lab Interpretation (test code = Normal 12828-9) [facility] (NA, K, CL, CO2, GLUCOSE, BUN, CREATININE, CA)2020-10-02 05:46:00 Test Item Value Reference Range Interpretation Comments NA (test code = 135 mmol/L 135-145 1174484135) K (test code = 4.4 mmol/L 3.5-5 9296672469) CL (test code = 102 mmol/L 98-108 7467014744) CO2 TOTAL (test code = 19 mmol/L 23-31 L 7211189336) AGAP (test code = 2-16 5731104552) BUN (test code = 19 mg/dL 7-23 3111812773) GLUCOSE (test code = 135 mg/dL 70-110 H 8966243962) CREATININE (test code = 1.19 mg/dL 0.5-1.04 H 2726618233) CALCIUM (test code = 11.3 mg/dL 8.6-10.6 H 4507442221) eGFR Calculation mL/min/1.73m2 (Non-) (test code = 5580034446) eGFR Calculation mL/min/1.73m2 () (test code = 8841401592) RAUDEL (test code = RAUDEL) Association of Glomerular Filtration Rate (GFR) and Staging of Kidney Disease* + --+ --+ ------+| GFR (mL/min/1.73 m2) ?| With Kidney Damage ?| ?Without Kidney Damage+ --------+ --------+ +| ?>90 ?| ?Stage one ?| ? Normal ?+ ---+ ---+ -------+| ?60-89 ?| ?Stage two ?| ? Decreased GFR ? + --+ --+ ------+| ?30-59 ?| ?Stage three ?| ? Stage three ? + --+ --+ ------+| ?15-29 ?| ?Stage four ? | ? Stage four ?+ ---+ ---+ -------+| ?<15 (or dialysis) ? ?| ?Stage five ? | ? Stage five ?+ ---+ ---+ -------+ *Each stage assumes the associated GFR level has been in effect for at least three months. ?Stages 1 to 5, with or without kidney disease, indicate chronic kidney disease. Notes: Determination of stages one and two (with eGFR >59mL/min/1.73 m2) requires estimation of kidney damage for at least three months as defined by structural or functional abnormalities of the kidney, manifested by either:Pathological abnormalities or Markers of kidney damage (including abnormalities in the composition of the blood or urine or abnormalities in imaging tests). Lab Interpretation Abnormal (test code = 11585-7) [facility] with [id number] 05:34:00 Test Item Value Reference Range Interpretation Comments WBC (test code = See_Comment [Automated 1007-2) message] The sy stem which generated this result transmitted reference range : 4.30 - 11.10 10*3/?L. The reference range was not used to interpret this result as normal/abnormal . RBC (test code = See_Comment [Automated 059-8) message] The sy stem which generated this result transmitted reference range : 3.93 - 5.25 10*6/?L. The reference range was not used to interpret this result as normal/abnormal . HGB (test code = 14.1 g/dL 11.6-15 718-7) HCT (test code = 43.7 % 35.7-45.2 4544-3) MCV (test code = 92.2 fL 80.6-95.5 787-2) MCH (test code = 29.7 pg 25.9-32.8 785-6) MCHC (test code = 32.3 g/dL 31.6-35.1 786-4) RDW-SD (test code = 40.6 fL 39-49.9 51305-1) RDW-CV (test code = 11.9 % 12-15.5 L 788-0) PLT (test code = See_Comment H [Automated 777-3) message] The sy stem which generated this result transmitted reference range : 166 - 358 10*3/ ?L. The reference r madelin was not used to interpret this result as normal/abnormal . MPV (test code = 9.9 fL 9.5-12.9 03067-5) NRBC/100 WBC (test See_Comment [Automat ed code = 8540642765) message] The system which generated this result transmitted reference range : 0.0 - 10.0 /100 WBCs. The refer ence range was not u sed to interpret th is result as normal/abnormal . NRBC x10^3 (test code <0.01 See_Comment [Auto mated = 5983810750) message] The s ystem which generated this result transmitted reference range : 10*3/?L. The reference range was not used to interpret this result as normal/abnormal . GRAN MAT (NEUT) % 38.8 % (test code = 770-8) IMM GRAN % (test code 0.20 % = 0005892820) LYMPH % (test code = 51.7 % 736-9) MONO % (test code = 7.4 % 5905-5) EOS % (test code = 0.9 % 713-8) BASO % (test code = 1.0 % 706-2) GRAN MAT x10^3(ANC) 2.27 10*3/uL 1.88-7.09 (test code = 5346267942) IMM GRAN x10^3 (test <0.03 0-0.06 code = 6462305091) LYMPH x10^3 (test code 3.02 10*3/uL 1.32-3.29 = 731-0) MONO x10^3 (test code 0.43 10*3/uL 0.33-0.92 = 742-7) EOS x10^3 (test code = 0.05 10*3/uL 0.03-0.39 711-2) BASO x10^3 (test code 0.06 10*3/uL 0.01-0.07 = 704-7) Lab Interpretation Abnormal (test code = 81431-0) [facility] CenterHCV BY [id number] 17:03:00 Test Item Value Reference Range Interpretation Comments HCV by Real-Time Not Detected Not detected IU/mL PCR (test code = 6534897144) RAUDEL (test code = [employer] m2000 RealTime HCV RAUDEL) reverse assistant professor of art-polymerase chain reaction(RT-PCR) assay is used. It is FDA approved for the quantitation of HCVin plasma and serum samples for HCV-infected individuals. The FDA approveddynamic range of this test is 12 IU/mL to 100,000,000 IU/mL (1.08-8.00 LogIU/mL). Assay results are reported in IU/mL..Result Interpretation:Not Detected: Target not detected (not the same as negative),<12 IU/mL: Detected (but not quantifiable)12-100,000,00 0 IU/mL,>100,000,000 IU/mL: >upper limit of quantification. [facility]. METABOLIC PANEL ([id number])2020-09-16 15:03:00 Test Item Value Reference Range Interpretation Comments NA (test code = 135 mmol/L 135-145 2728638572) K (test code = 4.4 mmol/L 3.5-5 7269522349) CL (test code = 111 mmol/L 98-108 H 9168649537) CO2 TOTAL (test code = 21 mmol/L 23-31 L 9856501061) AGAP (test code = 2-16 6022860172) BUN (test code = 11 mg/dL 7-23 6781029872) GLUCOSE (test code = 115 mg/dL 70-110 H 4186961277) CREATININE (test code = 0.83 mg/dL 0.5-1.04 3607198910) TOTAL BILI (test code = 0.5 mg/dL 0.1-1.6 1162331075) CALCIUM (test code = 8.3 mg/dL 8.6-10.6 L 8099710057) T PROTEIN (test code = 5.4 g/dL 6.3-8.2 L 5412702536) ALBUMIN (test code = 2.8 g/dL 3.5-5 L 2099408895) ALK PHOS (test code = 71 U/L 34-122 1512009723) ALTv (test code = 31 U/L 5-35 1742-6) AST(SGOT) (test code = 31 U/L 13-40 2477448414) eGFR Calculation mL/min/1.73m2 (Non-) (test code = 9695193779) eGFR Calculation mL/min/1.73m2 () (test code = 5293673588) RAUDEL (test code = RAUDEL) Association of Glomerular Filtration Rate (GFR) and Staging of Kidney Disease* + --+ --+ ------+| GFR (mL/min/1.73 m2) ?| With Kidney Damage ?| ?Without Kidney Damage+ --------+ --------+ +| ?>90 ?| ?Stage one ?| ? Normal ?+ ---+ ---+ -------+| ?60-89 ?| ?Stage two ?| ? Decreased GFR ? + --+ --+ ------+| ?30-59 ?| ?Stage three ?| ? Stage three ? + --+ --+ ------+| ?15-29 ?| ?Stage four ? | ? Stage four ?+ ---+ ---+ -------+| ?<15 (or dialysis) ? ?| ?Stage five ? | ? Stage five ?+ ---+ ---+ -------+ *Each stage assumes the associated GFR level has been in effect for at least three months. ?Stages 1 to 5, with or without kidney disease, indicate chronic kidney disease. Notes: Determination of stages one and two (with eGFR >59mL/min/1.73 m2) requires estimation of kidney damage for at least three months as defined by structural or functional abnormalities of the kidney, manifested by either:Pathological abnormalities or Markers of kidney damage (including abnormalities in the composition of the blood or urine or abnormalities in imaging tests). Lab Interpretation Abnormal (test code = 35566-2) [facility]. METABOLIC PANEL ([id number])2020-09-15 11:19:00 Test Item Value Reference Range Interpretation Comments NA (test code = 135 mmol/L 135-145 8071815249) K (test code = 3.9 mmol/L 3.5-5 3962201993) CL (test code = 104 mmol/L 98-108 1029114403) CO2 TOTAL (test code = 27 mmol/L 23-31 8123380693) AGAP (test code = 2-16 8590680638) BUN (test code = 15 mg/dL 7-23 2724833287) GLUCOSE (test code = 153 mg/dL 70-110 H 5090637567) CREATININE (test code = 0.91 mg/dL 0.5-1.04 7499457542) TOTAL BILI (test code = 0.4 mg/dL 0.1-1.5 4762616495) CALCIUM (test code = 9.2 mg/dL 8.6-10.6 8527251793) T PROTEIN (test code = 7.2 g/dL 6.3-8.2 2130322596) ALBUMIN (test code = 3.8 g/dL 3.5-5 2000716061) ALK PHOS (test code = 106 U/L 34-122 7462561877) ALTv (test code = 43 U/L 5-35 H 1742-6) AST(SGOT) (test code = 28 U/L 13-40 8899405711) eGFR Calculation mL/min/1.73m2 (Non-) (test code = 4081485881) eGFR Calculation mL/min/1.73m2 () (test code = 0331376904) RAUDEL (test code = RAUDEL) Association of Glomerular Filtration Rate (GFR) and Staging of Kidney Disease* + --+ --+ ------+| GFR (mL/min/1.73 m2) ?| With Kidney Damage ?| ?Without Kidney Damage+ --------+ --------+ +| ?>90 ?| ?Stage one ?| ? Normal ?+ ---+ ---+ -------+| ?60-89 ?| ?Stage two ?| ? Decreased GFR ? + --+ --+ ------+| ?30-59 ?| ?Stage three ?| ? Stage three ? + --+ --+ ------+| ?15-29 ?| ?Stage four ? | ? Stage four ?+ ---+ ---+ -------+| ?<15 (or dialysis) ? ?| ?Stage five ? | ? Stage five ?+ ---+ ---+ -------+ *Each stage assumes the associated GFR level has been in effect for at least three months. ?Stages 1 to 5, with or without kidney disease, indicate chronic kidney disease. Notes: Determination of stages one and two (with eGFR >59mL/min/1.73 m2) requires estimation of kidney damage for at least three months as defined by structural or functional abnormalities of the kidney, manifested by either:Pathological abnormalities or Markers of kidney damage (including abnormalities in the composition of the blood or urine or abnormalities in imaging tests). Lab Interpretation Abnormal (test code = 91018-7) [facility]HEPAT[facility] FUNCTION PAN[facility] ([id number]) (ALB,T.PRO,BILI T,BU/BC,ALT,AST,ALK PHOS)2020-09-14 19:50:00 Test Item Value Reference Range Interpretation Comments TOTAL BILI (test code = 1160842217) 0.5 mg/dL 0.1-1.1 BILI UNCON (test code = 4869197494) 0.4 mg/dL 0.1-1.1 BILI CONJ (test code = 1880629227) 0.0 mg/dL 0-0.3 T PROTEIN (test code = 0082063085) 6.5 g/dL 6.3-8.2 ALBUMIN (test code = 7461528117) 3.4 g/dL 3.5-5 L ALK PHOS (test code = 8654634759) 95 U/L 34-122 ALTv (test code = 1742-6) 45 U/L 5-35 H AST(SGOT) (test code = 5053111665) 31 U/L 13-40 Lab Interpretation (test code = Abnormal 38563-9) [facility] CenterCREATINE [id number] 18:49:00 Test Item Value Reference Range Interpretation Comments CK (test code = 3706082223) 44 U/L 33-194 Lab Interpretation (test code = Normal 94481-7) [facility] CenterBASIC METABOLIC PANEL (NA, K, CL, CO2, GLUCOSE, BUN, CREATININE, CA)2020-09-14 17:05:00 Test Item Value Reference Range Interpretation Comments NA (test code = 136 mmol/L 135-145 6748592585) K (test code = 3.9 mmol/L 3.5-5 1252891858) CL (test code = 104 mmol/L 98-108 6840934876) CO2 TOTAL (test code = 27 mmol/L 23-31 2045753972) AGAP (test code = 2-16 2603872071) BUN (test code = 17 mg/dL 7-23 3458374187) GLUCOSE (test code = 114 mg/dL 70-110 H 3989606302) CREATININE (test code = 0.84 mg/dL 0.5-1.04 4500964933) CALCIUM (test code = 8.9 mg/dL 8.6-10.6 0552640997) eGFR Calculation mL/min/1.73m2 (Non-) (test code = 3506648412) eGFR Calculation mL/min/1.73m2 () (test code = 7059031849) RAUDEL (test code = RAUDEL) Association of Glomerular Filtration Rate (GFR) and Staging of Kidney Disease* + --+ --+ ------+| GFR (mL/min/1.73 m2) ?| With Kidney Damage ?| ?Without Kidney Damage+ --------+ --------+ +| ?>90 ?| ?Stage one ?| ? Normal ?+ ---+ ---+ -------+| ?60-89 ?| ?Stage two ?| ? Decreased GFR ? + --+ --+ ------+| ?30-59 ?| ?Stage three ?| ? Stage three ? + --+ --+ ------+| ?15-29 ?| ?Stage four ? | ? Stage four ?+ ---+ ---+ -------+| ?<15 (or dialysis) ? ?| ?Stage five ? | ? Stage five ?+ ---+ ---+ -------+ *Each stage assumes the associated GFR level has been in effect for at least three months. ?Stages 1 to 5, with or without kidney disease, indicate chronic kidney disease. Notes: Determination of stages one and two (with eGFR >59mL/min/1.73 m2) requires estimation of kidney damage for at least three months as defined by structural or functional abnormalities of the kidney, manifested by either:Pathological abnormalities or Markers of kidney damage (including abnormalities in the composition of the blood or urine or abnormalities in imaging tests). Lab Interpretation Abnormal (test code = 52731-7) [facility] [id number] 16:44:00 Test Item Value Reference Range Interpretation Comments HBsAB (test code = Negative 6206143303) HBsAb mIU/mL Semi-Quantitative (test code = 1676399008) RAUDEL (test code = Interpretation: RAUDEL) ?Hepatitis B Surface Antibody ? Negative - Patient is considered to be not immune to infection with HBV. ? ? Positive - Anti-HBs detected at greater than or equal to 12 mIU/mL. ?Patient is considered to be immune to infection with HBV. ? [facility] [id number] 16:27:00 Test Item Value Reference Range Interpretation Comments HBsAg Semi-Quantitative (test code = Negative Negative 5195-3) [facility] 04:05:00 Test Item Value Reference Range Interpretation Comments MAGNESIUM (test code = 3048739077) 1.6 mg/dL 1.7-2.4 L Lab Interpretation (test code = Abnormal 23874-8) [facility]TR[facility] [id number] 20:02:00 Test Item Value Reference Range Interpretation Comments TROPONIN I (test <0.012 See_Comment [Automated code = [id number]) message] The system which generated this result transmitted reference range : <=0.034 ng/mL. The reference range was not used to interpr et this result as normal/abnormal . RAUDEL (test code = Equal or Less than RAUDEL) 0.034 ng/ml---Normal ?Note: Cardiac troponin begins to rise 3-4 hours after the onset of ischemia. Repeat in 4-6 hours if the sample was drawn within 3-4 hours of the onset of the symptom and found normal. Between 0.035 and 0.120 ng/mL--- Borderline. Questionable myocardial injury or necrosis ? ?Note: Serial measurement may be necessary to confirm or exclude the diagnosis of myocardial injury or necrosis; Clinical correlation (symptoms, EKGs, imaging studies, and others) required; Repeat in 4-6 hours if clinically indicated. ? Equal or Higher than 0.121 ng/mL---Abnormal. Myocardial Injury or Necrosis Likely ? Biotin has been reported to cause a negative bias, interpret results relative to patient's use of biotin. ? Lab Interpretation Normal (test code = 80488-8) [facility]COMP[facility]OLIC PAN[facility] ([id number])2020-09-13 17:43:00 Test Item Value Reference Range Interpretation Comments NA (test code = 139 mmol/L 135-145 8141874972) K (test code = 4.5 mmol/L 3.5-5 2692378436) CL (test code = 99 mmol/L 98-108 9459873035) CO2 TOTAL (test code = 31 mmol/L 23-31 0664657965) AGAP (test code = 2-16 9109554866) BUN (test code = 14 mg/dL 7-23 2286541159) GLUCOSE (test code = 115 mg/dL 70-110 H 0115411608) CREATININE (test code = 1.31 mg/dL 0.5-1.04 H 2206560810) TOTAL BILI (test code = 1.4 mg/dL 0.1-1.1 H 9222373429) CALCIUM (test code = 10.6 mg/dL 8.6-10.6 9877005953) T PROTEIN (test code = 9.1 g/dL 6.3-8.2 H 6986945501) ALBUMIN (test code = 4.7 g/dL 3.5-5 4432073275) ALK PHOS (test code = 160 U/L 34-122 H 4325080656) ALTv (test code = 84 U/L 5-35 H 1742-6) AST(SGOT) (test code = 51 U/L 13-40 H 6905809747) eGFR Calculation mL/min/1.73m2 (Non-) (test code = 3234833187) eGFR Calculation mL/min/1.73m2 () (test code = 3930618225) RAUDEL (test code = RAUDEL) Association of Glomerular Filtration Rate (GFR) and Staging of Kidney Disease* + --+ --+ ------+| GFR (mL/min/1.73 m2) ?| With Kidney Damage ?| ?Without Kidney Damage+ --------+ --------+ +| ?>90 ?| ?Stage one ?| ? Normal ?+ ---+ ---+ -------+| ?60-89 ?| ?Stage two ?| ? Decreased GFR ? + --+ --+ ------+| ?30-59 ?| ?Stage three ?| ? Stage three ? + --+ --+ ------+| ?15-29 ?| ?Stage four ? | ? Stage four ?+ ---+ ---+ -------+| ?<15 (or dialysis) ? ?| ?Stage five ? | ? Stage five ?+ ---+ ---+ -------+ *Each stage assumes the associated GFR level has been in effect for at least three months. ?Stages 1 to 5, with or without kidney disease, indicate chronic kidney disease. Notes: Determination of stages one and two (with eGFR >59mL/min/1.73 m2) requires estimation of kidney damage for at least three months as defined by structural or functional abnormalities of the kidney, manifested by either:Pathological abnormalities or Markers of kidney damage (including abnormalities in the composition of the blood or urine or abnormalities in imaging tests). Lab Interpretation Abnormal (test code = 88972-4) [facility]2020-[facility] 17:43:00 Test Item Value Reference Range Interpretation Comments LIPASE (test code = 9816076962) 88 U/L 0-220 Lab Interpretation (test code = Normal 96324-3) [facility] WITH [id number] 17:31:00 Test Item Value Reference Range Interpretation Comments WBC (test code = See_Comment [Automated 4490-2) message] The sy stem which generated this result transmitted reference range : 4.30 - 11.10 10*3/?L. The reference range was not used to interpret this result as normal/abnormal . RBC (test code = See_Comment [Automated 651-8) message] The sy stem which generated this result transmitted reference range : 3.93 - 5.25 10*6/?L. The reference range was not used to interpret this result as normal/abnormal . HGB (test code = 13.1 g/dL 11.6-15 718-7) HCT (test code = 41.1 % 35.7-45.2 4544-3) MCV (test code = 95.4 fL 80.6-95.5 787-2) MCH (test code = 30.4 pg 25.9-32.8 785-6) MCHC (test code = 31.9 g/dL 31.6-35.1 786-4) RDW-SD (test code = 44.9 fL 39-49.9 27001-0) RDW-CV (test code = 12.9 % 12-15.5 788-0) PLT (test code = See_Comment H [Automated 777-3) message] The sy stem which generated this result transmitted reference range : 166 - 358 10*3/ ?L. The reference r madelin was not used to interpret this result as normal/abnormal . MPV (test code = 9.7 fL 9.5-12.9 59197-1) NRBC/100 WBC (test See_Comment [Automat ed code = 2283507591) message] The system which generated this result transmitted reference range : 0.0 - 10.0 /100 WBCs. The refer ence range was not u sed to interpret th is result as normal/abnormal . NRBC x10^3 (test code <0.01 See_Comment [Auto mated = 7849005192) message] The s ystem which generated this result transmitted reference range : 10*3/?L. The reference range was not used to interpret this result as normal/abnormal . GRAN MAT (NEUT) % 80.0 % (test code = 770-8) IMM GRAN % (test code 0.50 % = 5312412925) LYMPH % (test code = 10.4 % 736-9) MONO % (test code = 7.1 % 5905-5) EOS % (test code = 1.5 % 713-8) BASO % (test code = 0.5 % 706-2) GRAN MAT x10^3(ANC) 7.11 10*3/uL 1.88-7.09 H (test code = 9609310333) IMM GRAN x10^3 (test 0.04 10*3/uL 0-0.06 code = 3459641347) LYMPH x10^3 (test code 0.92 10*3/uL 1.32-3.29 L = 731-0) MONO x10^3 (test code 0.63 10*3/uL 0.33-0.92 = 742-7) EOS x10^3 (test code = 0.13 10*3/uL 0.03-0.39 711-2) BASO x10^3 (test code 0.04 10*3/uL 0.01-0.07 = 704-7) Lab Interpretation Abnormal (test code = 64533-3) [facility] [id number] 17:08:57Overall, bowel gas pattern is felt to be nonobstructive with multiple loopsof bowel projecting over the pelvis. Ostomy appliance projects over the right lower quadrant.XR ABDOMEN 2 VW HISTORY: abdominal pain and vomiting ? COMPARISON: ?None. TECHNIQUE: AP view of the abdomen and pelvis FINDINGS: Visualized lung bases are clear. Overall, bowel gas pattern is nonobstructive. There is relative paucity ofbowel gas within the mid abdomen bilaterally. Small amount of gas is seenwithin the epigastrium andleft upper quadrant (gastric bubble). Loops ofbowel (some small bowel and possibly rectosigmoid) project over the pelvis. Right lower quadrant ostomy appliance. [facility], Radiant Results Inft User - 2019 12:10 PM CDTXR ABDOMEN 2 VWHISTORY: abdominal pain and vomiting COMPARISON: None.TECHNIQUE: AP view of the abdomen and pelvisFINDINGS: Visualized lung bases are clear.Overall, bowel gas patternis nonobstructive. There is relative paucity ofbowel gas within the mid abdomen bilaterally. Small amount of gas is seenwithin the epigastrium and left upper quadrant (gastric bubble). Loops ofbowel (some small bowel and possibly rectosigmoid) project over the pelvis.Right lower quadrant ostomy appliance.IMPRESSIONOverall, bowel gas pattern is felt to be nonobstructive with multiple loopsof bowel projecting over the pelvis.Ostomy appliance projects over the right lower quadrant.[facility]OL[facility] (30054)2020-09-01 07:34:00 Test Item Value Reference Range Interpretation Comments NA (test code = 137 mmol/L 135-145 3923131100) K (test code = 3.6 mmol/L 3.5-5 0587011474) CL (test code = 100 mmol/L 98-108 3239095540) CO2 TOTAL (test code = 26 mmol/L 23-31 1282034002) AGAP (test code = 2-16 4827750527) BUN (test code = 19 mg/dL 7-23 8287866090) GLUCOSE (test code = 171 mg/dL 70-110 H 7281411926) CREATININE (test code = 0.98 mg/dL 0.5-1.04 3278248875) TOTAL BILI (test code = 0.8 mg/dL 0.1-1.8 4274029027) CALCIUM (test code = 10.4 mg/dL 8.6-10.6 5984410538) T PROTEIN (test code = 8.9 g/dL 6.3-8.2 H 5138788568) ALBUMIN (test code = 4.9 g/dL 3.5-5 8649555528) ALK PHOS (test code = 109 U/L 34-122 2594260650) ALTv (test code = 46 U/L 5-35 H 1742-6) AST(SGOT) (test code = 26 U/L 13-40 8593125138) eGFR Calculation mL/min/1.73m2 (Non-) (test code = 5408351922) eGFR Calculation mL/min/1.73m2 () (test code = 0402703677) RAUDEL (test code = RAUDEL) Association of Glomerular Filtration Rate (GFR) and Staging of Kidney Disease* + --+ --+ ------+| GFR (mL/min/1.73 m2) ?| With Kidney Damage ?| ?Without Kidney Damage+ --------+ --------+ +| ?>90 ?| ?Stage one ?| ? Normal ?+ ---+ ---+ -------+| ?60-89 ?| ?Stage two ?| ? Decreased GFR ? + --+ --+ ------+| ?30-59 ?| ?Stage three ?| ? Stage three ? + --+ --+ ------+| ?15-29 ?| ?Stage four ? | ? Stage four ?+ ---+ ---+ -------+| ?<15 (or dialysis) ? ?| ?Stage five ? | ? Stage five ?+ ---+ ---+ -------+ *Each stage assumes the associated GFR level has been in effect for at least three months. ?Stages 1 to 5, with or without kidney disease, indicate chronic kidney disease. Notes: Determination of stages one and two (with eGFR >59mL/min/1.73 m2) requires estimation of kidney damage for at least three months as defined by structural or functional abnormalities of the kidney, manifested by either:Pathological abnormalities or Markers of kidney damage (including abnormalities in the composition of the blood or urine or abnormalities in imaging tests). Lab Interpretation Abnormal (test code = 09915-7) [facility] 07:[facility]:00 Test Item Value Reference Range Interpretation Comments LIPASE (test code = 8294673615) 103 U/L 0-220 Lab Interpretation (test code = Normal 76599-6) [facility]CBC WITH [id number] 07:19:00 Test Item Value Reference Range Interpretation Comments WBC (test code = See_Comment [Automated 6690-2) message] The sy stem which generated this result transmitted reference range : 4.30 - 11.10 10*3/?L. The reference range was not used to interpret this result as normal/abnormal . RBC (test code = See_Comment [Automated 789-8) message] The sy stem which generated this result transmitted reference range : 3.93 - 5.25 10*6/?L. The reference range was not used to interpret this result as normal/abnormal . HGB (test code = 13.4 g/dL 11.6-15 718-7) HCT (test code = 39.6 % 35.7-45.2 4544-3) MCV (test code = 90.8 fL 80.6-95.5 787-2) MCH (test code = 30.7 pg 25.9-32.8 785-6) MCHC (test code = 33.8 g/dL 31.6-35.1 786-4) RDW-SD (test code = 40.4 fL 39-49.9 22331-6) RDW-CV (test code = 12.1 % 12-15.5 788-0) PLT (test code = See_Comment [Automated 777-3) message] The sy stem which generated this result transmitted reference range : 166 - 358 10*3/ ?L. The reference r madelin was not used to interpret this result as normal/abnormal . MPV (test code = 10.7 fL 9.5-12.9 99116-0) NRBC/100 WBC (test See_Comment [Automat ed code = 6160017224) message] The system which generated this result transmitted reference range : 0.0 - 10.0 /100 WBCs. The refer ence range was not u sed to interpret th is result as normal/abnormal . NRBC x10^3 (test code <0.01 See_Comment [Auto mated = 2361765961) message] The s ystem which generated this result transmitted reference range : 10*3/?L. The reference range was not used to interpret this result as normal/abnormal . GRAN MAT (NEUT) % 77.7 % (test code = 770-8) IMM GRAN % (test code 0.20 % = 1693935810) LYMPH % (test code = 18.3 % 736-9) MONO % (test code = 3.5 % 5905-5) EOS % (test code = 0.0 % 713-8) BASO % (test code = 0.3 % 706-2) GRAN MAT x10^3(ANC) 4.63 10*3/uL 1.88-7.09 (test code = 9841097748) IMM GRAN x10^3 (test <0.03 0-0.06 code = 8762967826) LYMPH x10^3 (test code 1.09 10*3/uL 1.32-3.29 L = 731-0) MONO x10^3 (test code 0.21 10*3/uL 0.33-0.92 L = 742-7) EOS x10^3 (test code = <0.03 0.03-0.39 L 711-2) BASO x10^3 (test code <0.03 0.01-0.07 = 704-7) Lab Interpretation Abnormal (test code = 83605-2) [facility] 02:48:00 Test Item Value Reference Range Interpretation Comments LIPASE (test code = 1348448962) 171 U/L 0-220 Lab Interpretation (test code = Normal 04379-1) [facility] WITH [id number] 02:25:00 Test Item Value Reference Range Interpretation Comments WBC (test code = See_Comment [Automated message] 6690-2) The system [employer] h generated this result transmitted ref erence range: 4.30 - 1 1.10 10*3/?L. The re ference range was not u sed to interpret this result as normal/abnor mal. RBC (test code = See_Comment [Automated message] 789-8) The system [employer] generated this result transmitted ref erence range: 3.93 - 5 .25 10*6/?L. The re ference range was not u sed to interpret this result as normal/abnor mal. HGB (test code = 13.1 g/dL 11.6-15 718-7) HCT (test code = 39.7 % 35.7-45.2 4544-3) MCV (test code = 94.7 fL 80.6-95.5 787-2) MCH (test code = 31.3 pg 25.9-32.8 785-6) MCHC (test code = 33.0 g/dL 31.6-35.1 786-4) RDW-SD (test code 42.3 fL 39-49.9 = 96139-6) RDW-CV (test code 12.1 % 12-15.5 = 788-0) PLT (test code = See_Comment [Automated message] 777-3) The system [employer] generated this result transmitted ref erence range: 166 - 35 8 10*3/?L. The re ference range was not u sed to interpret this result as normal/abnor mal. MPV (test code = 11.0 fL 9.5-12.9 05034-0) NRBC/100 WBC (test See_Comment [Automat ed message] code = 9957038769) The syste m which generated this result transmitted ref erence range: 0.0 - 10 .0 /100 WBCs. The refer ence range was not u sed to interpret this result as normal/abnor mal. NRBC x10^3 (test <0.01 See_Comment [Automated message] code = 3919851051) The syste m which generated this result transmitted ref erence range: 10*3/?L. The reference range was not used to interpr et this result as normal/abnormal . GRAN MAT (NEUT) % 44.5 % (test code = 770-8) IMM GRAN % (test 0.20 % code = 1967696534) LYMPH % (test code 43.0 % = 736-9) MONO % (test code 9.5 % = 5905-5) EOS % (test code = 1.7 % 713-8) BASO % (test code 1.1 % = 706-2) GRAN MAT 2.35 10*3/uL 1.88-7.09 x10^3(ANC) (test code = 7814366330) IMM GRAN x10^3 <0.03 0-0.06 (test code = 6762229563) LYMPH x10^3 (test 2.27 10*3/uL 1.32-3.29 code = 731-0) MONO x10^3 (test 0.50 10*3/uL 0.33-0.92 code = 742-7) EOS x10^3 (test 0.09 10*3/uL 0.03-0.39 code = 711-2) BASO x10^3 (test 0.06 10*3/uL 0.01-0.07 code = 704-7) [facility] P[facility] W [id number] 03:50:29Addendum by Rhett Harden MD on 08/17/2020 11:01 PM* * * * * * * * ADDENDUM: * * * * * * * * The finding regarding left breast nodule was discussed with Dr MunozNfpqiwfn89/3/2020 10:53 PM Preliminary Report Dictated by Resident: Rhett Venegas MD., have reviewed this study and agree with theabove report. Status post ileocecectomy with right lower quadrant diverting ileostomy. Rectosigmoid colon wall thickening with mild mural hyperenhancement mayreflect active inflammatory bowel disease. Mild inflammatory changes can beseen elsewhere in the colon (to lesser extent). Correlate clinically. Ventral hernia containing fat and fluid faint peripheral enhancement.Sterility is unclear. However, there is no significant inflammatory changein this region. Slightly thickened bladder wall for the degree of distention. Correlatewith urinalysis. Left breast 1.1 cm nodule. Correlate with ultrasound and/or mammography Preliminary Report Dictated by Resident: Rhett Venegas MD., have reviewed this study and agree with theabove report.EXAM: CT ABDOMEN PELVIS W CONTRAST HISTORY: Abd pain, acute, generalized s/p iLEOSTOMY WITH aBDOMINAL PAIN,nAUSEA/vOMITING 43-year-old female with Crohn's disease. COMPARISON: Abdominal CT-07/23/2020 DOSE: 334 mGy*cm TECHNIQUE AND FINDINGS: Contiguous axial imaging from the level of the lungbases through the proximal thighs was performed after the uncomplicatedadministration intravenous contrast. Coronal and sagittal reconstructionswere obtained. ?Auto mA and/or iterative reconstruction were used to reduceradiation dose. FINDINGS: LOWER THORAX: Left lower lobe subsegmental atelectasis. 1.1 cm right breast nodule(2:29 and 4:48). LIVER: No focal hepatic lesions. Normal contour. GALLBLADDER AND BILIARY TREE: No biliary ductal dilation. No radiopaquecholelithiasis. No gallbladder wall thickening. PANCREAS: No ductal dilation or masses. Evidence of pancreatic divisum. SPLEEN: No splenomegaly. ADRENAL GLANDS: No adrenal nodules. KIDNEYS: No hydronephrosis, stones, or masses. Kidneys enhancesymmetrically. PERITONEUM AND RETROPERITONEUM: No free air or fluid. Left paramedianventral hernia containing fat fluid level with peripheral enhancement(2:62). No significant surrounding fluid or change. Left upper quadrant mesenteric stranding and prominent vessels suggestinghyperemia. LYMPH NODES: No lymphadenopathy. Multiple subcentimeter lymph nodesscattered throughout the mesentery are thought to be reactive. VESSELS:Patent abdominal vasculature. GI TRACT: Postsurgical changes of right lower quadrant colectomy with rightlower quadrant and diverting ileostomy (portions of the residual rightcolon extending to the stoma). Rectosigmoid wall thickening is noted. Noevidence of small bowel obstruction. Mucosal hyperenhancement within the rectum and rectosigmoid with mild muralthickening (probably exaggerated by decompressed state). Small sliding-type hiatal hernia with mild distal esophageal thickening. PELVIS/BLADDER:Bladder wall slightly thickened, for the degree ofdistention. Status post hysterectomy. Vagina appears mildly thickened. BONES AND SOFT TISSUES: No acute osseous abnormality. Midline surgical scaris seen. Mild multilevel wedging at thoracolumbar junction anteriorsuperior endplates is probably degenerative in nature. Prominentdegenerative changes at bilateral hips. [facility], Radiant Results Inft User - 08/17/2020 10:51 PM CDTEXAM: CT ABDOMEN PELVIS W CONTRASTHISTORY: Abd pain, acute, generalized s/p iLEOSTOMY WITH aBDOMINAL PAIN,nAUSEA/vOMITING 43-year-old female with Crohn's disease.COMPARISON: Abdominal CT-07/23/2020DOSE: 334 mGy*cmTECHNIQUE AND FINDINGS: Contiguous axial imaging from the level of the lungbases through the proximal thighs was performed after the uncomplicatedadministration intravenouscontrast. Coronal and sagittal reconstructionswere obtained. Auto mA and/or iterative reconstruction were used to reduceradiation dose.FINDINGS:LOWER THORAX: Left lower lobe subsegmental atelectasis.1.1 cm right breast nodule (2:29 and 4:48).LIVER: No focal hepatic lesions. Normal contour.GALLBLADDERAND BILIARY TREE: No biliary ductal dilation. No radiopaquecholelithiasis. No gallbladder wall thickening.PANCREAS: No ductal dilation or masses. Evidence of pancreatic divisum.SPLEEN: No splenomegaly.ADRENAL GLANDS: No adrenal nodules.KIDNEYS: No hydronephrosis, stones, or masses. Kidneys enhancesymmetrically.PERITONEUM AND RETROPERITONEUM: No free air or fluid. Left paramedianventral hernia containing fat fluid level with peripheral enhancement(2:62). No significant surrounding fluid or change.Left upper quadrant mesenteric stranding and prominent vessels suggestinghyperemia.LYMPH NODES: No lymphadenopathy. Multiple subcentimeter lymph nodesscattered throughout the mesentery are thought to be vimal ctive.VESSELS: Patent abdominal vasculature.GI TRACT: Postsurgical changes of right lower quadrant colectomy with rightlower quadrant and diverting ileostomy (portions of the residual rightcolon extending to the stoma). Rectosigmoid wall thickening is noted. Noevidence of small bowel obstruction.Mucosal hyperenhancement within the rectum and rectosigmoid with mild muralthickening (probably exaggerated by decompressed state).Small sliding-type hiatal hernia with mild distal esophageal thickening.PELVIS/BLADDER: Bladder wall slightly thickened, for the degree ofdistention. Status post hysterectomy. Vagina appears mildly thickened.BONES AND SOFT TISSUES: No acute osseous abnormality. Midline surgicalscaris seen. Mild multilevel wedging at thoracolumbar junction anteriorsuperior endplates is probably degenerative in nature. Prominentdegenerative changes at bilateral hips.IMPRESSIONStatus post ileoce cectomy with right lower quadrant diverting ileostomy.Rectosigmoid colon wall thickening with mild mural hyperenhancement mayreflect active inflammatory bowel disease. Mild inflammatory changes can beseen elsewhere in the colon (to lesser extent). Correlate clinically.Ventral hernia containing fat andfluid faint peripheral enhancement.Sterility is unclear. However, there is no significant inflammatory changein this region.Slightly thickened bladder wall for the degree of distention. Correlatewith urinalysis.Left breast 1.1 cm nodule. Correlate with ultrasound and/or mammographyPreliminary Report Dictated by Resident: Rhett Jacobs MD., have reviewed this study and agree with theabove report.[facility] CenterCOVID-[facility] (ID NOW RAPID TESTING) 2020-08-18 01:55:00 Test Item Value Reference Range Interpretation Comments SARS-CoV-2 Rapid ID NOW Not Detected Not Detected (test code = 24076-9) RAUDEL (test code = RAUDEL) ID NOW COVID-19 Assay is an isothermal nucleic acid amplification test intended for the qualitative detection of nucleic acid from SARS-CoV-2 viral RNA in nasopharyngeal ([employer]) specimens. It is used under Emergency Use Authorization (EUA) by FDA. The limit of detection (LOD) of the assay is 125 Genome Equivalents/mL. A positive result is indicative of the presence of SARS-CoV-2 RNA. ?Clinical correlation with patient history and other diagnostic [...] for repeat patient testing if clinically indicated. Lab Interpretation Normal (test code = 02617-0) [facility]. METABOLIC PANEL ([id number])2020-08-18 01:47:00 Test Item Value Reference Range Interpretation Comments NA (test code = 135 mmol/L 135-145 4528611527) K (test code = 4.1 mmol/L 3.5-5 1438712462) CL (test code = 96 mmol/L 98-108 L 2112044494) CO2 TOTAL (test code = 30 mmol/L 23-31 3529854852) AGAP (test code = 2-16 3493830833) BUN (test code = 17 mg/dL 7-23 8088037279) GLUCOSE (test code = 149 mg/dL 70-110 H 5578211682) CREATININE (test code = 1.21 mg/dL 0.5-1.04 H 3351740935) TOTAL BILI (test code = 0.7 mg/dL 0.1-1.8 9247813618) CALCIUM (test code = 10.5 mg/dL 8.6-10.6 6698436228) T PROTEIN (test code = 8.6 g/dL 6.3-8.2 H 6174949609) ALBUMIN (test code = 4.4 g/dL 3.5-5 3866995466) ALK PHOS (test code = 170 U/L 34-122 H 8242400541) ALTv (test code = 145 U/L 5-35 H 1742-6) AST(SGOT) (test code = 70 U/L 13-40 H 4113987550) eGFR Calculation mL/min/1.73m2 (Non-) (test code = 0611091113) eGFR Calculation mL/min/1.73m2 () (test code = 8224600381) RAUDEL (test code = RAUDEL) Association of Glomerular Filtration Rate (GFR) and Staging of Kidney Disease* + --+ --+ ------+| GFR (mL/min/1.73 m2) ?| With Kidney Damage ?| ?Without Kidney Damage+ --------+ --------+ +| ?>90 ?| ?Stage one ?| ? Normal ?+ ---+ ---+ -------+| ?60-89 ?| ?Stage two ?| ? Decreased GFR ? + --+ --+ ------+| ?30-59 ?| ?Stage three ?| ? Stage three ? + --+ --+ ------+| ?15-29 ?| ?Stage four ? | ? Stage four ?+ ---+ ---+ -------+| ?<15 (or dialysis) ? ?| ?Stage five ? | ? Stage five ?+ ---+ ---+ -------+ *Each stage assumes the associated GFR level has been in effect for at least three months. ?Stages 1 to 5, with or without kidney disease, indicate chronic kidney disease. Notes: Determination of stages one and two (with eGFR >59mL/min/1.73 m2) requires estimation of kidney damage for at least three months as defined by structural or functional abnormalities of the kidney, manifested by either:Pathological abnormalities or Markers of kidney damage (including abnormalities in the composition of the blood or urine or abnormalities in imaging tests). Lab Interpretation Abnormal (test code = 90178-4) [facility] 01:47:00 Test Item Value Reference Range Interpretation Comments LIPASE (test code = 2789043304) 172 U/L 0-220 Lab Interpretation (test code = Normal 15786-4) [facility] WITH [id number] 01:34:00 Test Item Value Reference Range Interpretation Comments WBC (test code = See_Comment [Automated 7190-2) message] The sy stem which generated this result transmitted reference range : 4.30 - 11.10 10*3/?L. The reference range was not used to interpret this result as normal/abnormal . RBC (test code = See_Comment [Automated 479-8) message] The sy stem which generated this result transmitted reference range : 3.93 - 5.25 10*6/?L. The reference range was not used to interpret this result as normal/abnormal . HGB (test code = 12.8 g/dL 11.6-15 718-7) HCT (test code = 38.9 % 35.7-45.2 4544-3) MCV (test code = 94.4 fL 80.6-95.5 787-2) MCH (test code = 31.1 pg 25.9-32.8 785-6) MCHC (test code = 32.9 g/dL 31.6-35.1 786-4) RDW-SD (test code = 41.1 fL 39-49.9 72313-3) RDW-CV (test code = 11.8 % 12-15.5 L 788-0) PLT (test code = See_Comment [Automated 217-3) message] The sy stem which generated this result transmitted reference range : 166 - 358 10*3/ ?L. The reference r madelin was not used to interpret this result as normal/abnormal . MPV (test code = 10.4 fL 9.5-12.9 64178-5) NRBC/100 WBC (test See_Comment [Automat ed code = 8388024375) message] The system which generated this result transmitted reference range : 0.0 - 10.0 /100 WBCs. The refer ence range was not u sed to interpret th is result as normal/abnormal . NRBC x10^3 (test code <0.01 See_Comment [Auto mated = 3836772333) message] The s ystem which generated this result transmitted reference range : 10*3/?L. The reference range was not used to interpret this result as normal/abnormal . GRAN MAT (NEUT) % 50.9 % (test code = 770-8) IMM GRAN % (test code 0.40 % = 3182789363) LYMPH % (test code = 35.9 % 736-9) MONO % (test code = 9.9 % 5905-5) EOS % (test code = 2.2 % 713-8) BASO % (test code = 0.7 % 706-2) GRAN MAT x10^3(ANC) 2.31 10*3/uL 1.88-7.09 (test code = 5147139159) IMM GRAN x10^3 (test <0.03 0-0.06 code = 6220370591) LYMPH x10^3 (test code 1.63 10*3/uL 1.32-3.29 = 731-0) MONO x10^3 (test code 0.45 10*3/uL 0.33-0.92 = 742-7) EOS x10^3 (test code = 0.10 10*3/uL 0.03-0.39 711-2) BASO x10^3 (test code 0.03 10*3/uL 0.01-0.07 = 704-7) Lab Interpretation Abnormal (test code = 80650-6) [facility] WITH [id number] 10:12:00 Test Item Value Reference Range Interpretation Comments WBC (test code = See_Comment H [Automated 6690-2) message] The sy stem which generated this result transmitted reference range : 4.30 - 11.10 10*3/?L. The reference range was not used to interpret this result as normal/abnormal . RBC (test code = See_Comment L [Automated 789-8) message] The sy stem which generated this result transmitted reference range : 3.93 - 5.25 10*6/?L. The reference range was not used to interpret this result as normal/abnormal . HGB (test code = 9.1 g/dL 11.6-15 L 718-7) HCT (test code = 27.9 % 35.7-45.2 L 4544-3) MCV (test code = 96.9 fL 80.6-95.5 H 787-2) MCH (test code = 31.6 pg 25.9-32.8 785-6) MCHC (test code = 32.6 g/dL 31.6-35.1 786-4) RDW-SD (test code = 45.2 fL 39-49.9 92887-5) RDW-CV (test code = 12.9 % 12-15.5 788-0) PLT (test code = See_Comment H [Automated 777-3) message] The sy stem which generated this result transmitted reference range : 166 - 358 10*3/ ?L. The reference r madelin was not used to interpret this result as normal/abnormal . MPV (test code = 9.8 fL 9.5-12.9 07547-7) NRBC/100 WBC (test See_Comment [Automat ed code = 0155259599) message] The system which generated this result transmitted reference range : 0.0 - 10.0 /100 WBCs. The refer ence range was not u sed to interpret th is result as normal/abnormal . NRBC x10^3 (test code <0.01 See_Comment [Auto mated = 8046516845) message] The s ystem which generated this result transmitted reference range : 10*3/?L. The reference range was not used to interpret this result as normal/abnormal . GRAN MAT (NEUT) % 64.8 % (test code = 770-8) IMM GRAN % (test code 2.10 % = 9403074730) LYMPH % (test code = 21.9 % 736-9) MONO % (test code = 9.0 % 5905-5) EOS % (test code = 1.9 % 713-8) BASO % (test code = 0.3 % 706-2) GRAN MAT x10^3(ANC) 8.61 10*3/uL 1.88-7.09 H (test code = 3089955073) IMM GRAN x10^3 (test 0.28 10*3/uL 0-0.06 H code = 8005939215) LYMPH x10^3 (test code 2.91 10*3/uL 1.32-3.29 = 731-0) MONO x10^3 (test code 1.20 10*3/uL 0.33-0.92 H = 742-7) EOS x10^3 (test code = 0.25 10*3/uL 0.03-0.39 711-2) BASO x10^3 (test code 0.04 10*3/uL 0.01-0.07 = 704-7) REACT LYMPHS (test Rare code = 7294947205) Lab Interpretation Abnormal (test code = 30814-4) [facility] METABOLIC PANEL (NA, K, CL, CO2, GLUCOSE, BUN, CREATININE, CA)2020-08-01 09:46:00 Test Item Value Reference Range Interpretation Comments NA (test code = 137 mmol/L 135-145 7001531749) K (test code = 4.0 mmol/L 3.5-5 9880976484) CL (test code = 100 mmol/L 98-108 2240474863) CO2 TOTAL (test code = 30 mmol/L 23-31 2799908000) AGAP (test code = 2-16 2752439918) BUN (test code = 5 mg/dL 7-23 L 2702050667) GLUCOSE (test code = 139 mg/dL 70-110 H 5174667755) CREATININE (test code = 0.73 mg/dL 0.5-1.04 6905021521) CALCIUM (test code = 9.3 mg/dL 8.6-10.6 8752299148) eGFR Calculation mL/min/1.73m2 (Non-) (test code = 3299812743) eGFR Calculation mL/min/1.73m2 () (test code = 0059547068) RAUDEL (test code = RAUDEL) Association of Glomerular Filtration Rate (GFR) and Staging of Kidney Disease* + --+ --+ ------+| GFR (mL/min/1.73 m2) ?| With Kidney Damage ?| ?Without Kidney Damage+ --------+ --------+ +| ?>90 ?| ?Stage one ?| ? Normal ?+ ---+ ---+ -------+| ?60-89 ?| ?Stage two ?| ? Decreased GFR ? + --+ --+ ------+| ?30-59 ?| ?Stage three ?| ? Stage three ? + --+ --+ ------+| ?15-29 ?| ?Stage four ? | ? Stage four ?+ ---+ ---+ -------+| ?<15 (or dialysis) ? ?| ?Stage five ? | ? Stage five ?+ ---+ ---+ -------+ *Each stage assumes the associated GFR level has been in effect for at least three months. ?Stages 1 to 5, with or without kidney disease, indicate chronic kidney disease. Notes: Determination of stages one and two (with eGFR >59mL/min/1.73 m2) requires estimation of kidney damage for at least three months as defined by structural or functional abnormalities of the kidney, manifested by either:Pathological abnormalities or Markers of kidney damage (including abnormalities in the composition of the blood or urine or abnormalities in imaging tests). Lab Interpretation Abnormal (test code = 62238-1) [facility] Test Item Value Reference Range Interpretation Comments MAGNESIUM (test code = 4399809110) 1.9 mg/dL 1.7-2.4 Lab Interpretation (test code = Normal 51378-1) [facility] 09:46[facility]00 Test Item Value Reference Range Interpretation Comments PHOSPHORUS (test code = 1741063700) 3.0 mg/dL 2.5-5 Lab Interpretation (test code = Normal 81386-7) [facility] [id number] 10:55:00 Test Item Value Reference Range Interpretation Comments WBC (test code = See_Comment [Automated 6690-2) message] The sy stem which generated this result transmitted reference range : 4.30 - 11.10 10*3/?L. The reference range was not used to interpret this result as normal/abnormal . RBC (test code = See_Comment L [Automated 789-8) message] The sy stem which generated this result transmitted reference range : 3.93 - 5.25 10*6/?L. The reference range was not used to interpret this result as normal/abnormal . HGB (test code = 9.5 g/dL 11.6-15 L 718-7) HCT (test code = 29.1 % 35.7-45.2 L 4544-3) MCV (test code = 96.7 fL 80.6-95.5 H 787-2) MCH (test code = 31.6 pg 25.9-32.8 785-6) MCHC (test code = 32.6 g/dL 31.6-35.1 786-4) RDW-SD (test code = 45.4 fL 39-49.9 01790-1) RDW-CV (test code = 12.8 % 12-15.5 788-0) PLT (test code = See_Comment H [Automated 777-3) message] The sy stem which generated this result transmitted reference range : 166 - 358 10*3/ ?L. The reference r madelin was not used to interpret this result as normal/abnormal . MPV (test code = 9.7 fL 9.5-12.9 42603-9) NRBC/100 WBC (test See_Comment [Automat ed code = 5433172295) message] The system which generated this result transmitted reference range : 0.0 - 10.0 /100 WBCs. The refer ence range was not u sed to interpret th is result as normal/abnormal . NRBC x10^3 (test code <0.01 See_Comment [Auto mated = 0894278107) message] The s ystem which generated this result transmitted reference range : 10*3/?L. The reference range was not used to interpret this result as normal/abnormal . GRAN MAT (NEUT) % 42.8 % (test code = 770-8) IMM GRAN % (test code 5.50 % = 2247738464) LYMPH % (test code = 36.7 % 736-9) MONO % (test code = 11.8 % 5905-5) EOS % (test code = 2.8 % 713-8) BASO % (test code = 0.4 % 706-2) GRAN MAT x10^3(ANC) 4.35 10*3/uL 1.88-7.09 (test code = 3693354921) IMM GRAN x10^3 (test 0.56 10*3/uL 0-0.06 H code = 2311026876) LYMPH x10^3 (test code 3.74 10*3/uL 1.32-3.29 H = 731-0) MONO x10^3 (test code 1.20 10*3/uL 0.33-0.92 H = 742-7) EOS x10^3 (test code = 0.29 10*3/uL 0.03-0.39 711-2) BASO x10^3 (test code 0.04 10*3/uL 0.01-0.07 = 704-7) REACT LYMPHS (test Rare code = 3706050905) Lab Interpretation Abnormal (test code = 66115-6) [facility] METABOLIC PANEL (NA, K, CL, CO2, GLUCOSE, BUN, CREATININE, CA)2020-07-31 10:50:00 Test Item Value Reference Range Interpretation Comments NA (test code = 135 mmol/L 135-145 0535970886) K (test code = 3.8 mmol/L 3.5-5 3519833563) CL (test code = 101 mmol/L 98-108 3341112905) CO2 TOTAL (test code = 27 mmol/L 23-31 4636973343) AGAP (test code = 2-16 3058059685) BUN (test code = 2 mg/dL 7-23 L 6391455576) GLUCOSE (test code = 132 mg/dL 70-110 H 4292094310) CREATININE (test code = 0.72 mg/dL 0.5-1.04 9073260537) CALCIUM (test code = 8.4 mg/dL 8.6-10.6 L 7021419599) eGFR Calculation mL/min/1.73m2 (Non-) (test code = 2534267944) eGFR Calculation mL/min/1.73m2 () (test code = 8802061474) RAUDEL (test code = RAUDEL) Association of Glomerular Filtration Rate (GFR) and Staging of Kidney Disease* + --+ --+ ------+| GFR (mL/min/1.73 m2) ?| With Kidney Damage ?| ?Without Kidney Damage+ --------+ --------+ +| ?>90 ?| ?Stage one ?| ? Normal ?+ ---+ ---+ -------+| ?60-89 ?| ?Stage two ?| ? Decreased GFR ? + --+ --+ ------+| ?30-59 ?| ?Stage three ?| ? Stage three ? + --+ --+ ------+| ?15-29 ?| ?Stage four ? | ? Stage four ?+ ---+ ---+ -------+| ?<15 (or dialysis) ? ?| ?Stage five ? | ? Stage five ?+ ---+ ---+ -------+ *Each stage assumes the associated GFR level has been in effect for at least three months. ?Stages 1 to 5, with or without kidney disease, indicate chronic kidney disease. Notes: Determination of stages one and two (with eGFR >59mL/min/1.73 m2) requires estimation of kidney damage for at least three months as defined by structural or functional abnormalities of the kidney, manifested by either:Pathological abnormalities or Markers of kidney damage (including abnormalities in the composition of the blood or urine or abnormalities in imaging tests). Lab Interpretation Abnormal (test code = 23755-9) [facility] 10:[facility]00 Test Item Value Reference Range Interpretation Comments MAGNESIUM (test code = 8062329133) 1.2 mg/dL 1.7-2.4 L Lab Interpretation (test code = Abnormal 05824-6) [facility] 10:50:00 Test Item Value Reference Range Interpretation Comments PHOSPHORUS (test code = 9571570709) 3.8 mg/dL 2.5-5 Lab Interpretation (test code = Normal 61676-2) [facility] [id number] 15:48:00 Test Item Value Reference Range Interpretation Comments Case Report (test code Surgical Pathology ? ? = [id number]) ?Case: [id number] ? Authorizing Provider: ?Darren Clark MD ?Collected: ? 07/25/2020 1708 ?Ordering Location: ? ? [facility] OR ? Received: ?07/26/2020 0914 ? Department ? Pathologist: ? Deniz Joseph MD PHD ?Specimen: ? ?ABDOMEN, ILEOCECECTOMY ? Final Diagnosis (test o5cmwIBxQFPnr5ckBZEfqFA code = 2704336235) uZzEwMzNcZnRuYmpcdWMxIH boqbCqOAexq5NqV1EhDsQlP FxhbnNpXGRlZmxhbmcxMDMz HSS0gyKvGUBfWBscXIPvLFf pTv8exEKsjFpmRyQoYEZpj2 kdraXMpomyaOm4n5ydZZUlY nR7zKElKQnpA6iwkrXvxJAx OESrOTu1lZ90LOZhmM6vmST hUNizbxMzIxE2PXfjZRTpPg W8QNNzeSSlLHScU2tjLJGkV TxhHDVuCIvwsJVpHLY5nUyy h3V7wCPcqUVvqUmcYdQkMyJ bBHEOe1FtNXx8tNskB2UfOQ JgAeT4tXNrBRHuOKckEKSwG OUadjB4yJ38CDffncM4bJXf d8Ntk08fv447nB9yoWRmFRN 3BFMzKEUdkORdAXEpCAP2GH TgdRSeB6qzXBxiZW0kbpemI SO4GWnzHKYkpAnsWRsrFOIr IqMrkCJrXJIoiQvnXUpea75 2DCH6HqGkUX8nX9Aqc5T0mT 9maXRcZGVmdGFiNzIwXGZvc c9ttMKgYTbpa3YmCRO5xpT5 gNRycCUtJCCaXI76Uhjfc2J mHjqiSGF5ITSfyzJyo2Irr9 npSxZzleEfA4agP5LlWQPdV MUcMDEoFoOjlzAvr1Vby0Wh hJYwtQw2y0dtVGFhPBEywOa db3xtXWD9DJFiE1S6yLAua0 rnNUchYURwtGY8cbUdAZNhb XYbO4PppP0nWQlxAV1rmvg0 l7fkLcRqFK0kwmfbs3kiVBb kDQEfOPC7EvEwUHObq8Unec ddCkUjg4VlvCJrZWajU85to 142JHMkbuQaS7xyjEDtbrrk hPAcgackDSxfgrG4YSGyBKK sYWluXGYxXGZzMjBcbGFuZz EwMzNcaGljaFxmMVxkYmNoX DYsYVwuK0zfMwUiKgHgQCkj GKGnQQ1zS16CCNmlEK5GIDF SRB9EKDJUEGLBRVGZGVUNEA PGT3NDJGCGSFCDA3SYLATTU 83EHnstHBYtJIPrAF1zN3BU TUVOVEFMIFNNQUxMIElOVEV TVElORSAgSVNDSEVNSUMgTk MKSv9ZEYFvI1uWHGYVRxKFA 59JZdRAKEkHIk1SWvZMDL6T LCBccGFyICAgICAgICBTRUN TGaDKOpzuAF4iSbsAAj4DXH GjUJYBMHPYH12rUJ1EOPNAG ZvQGCUWG5NTDB6ZL3DPYHXU NE5OKVnuZQEtDWAaRO6uR2Y BRZNNVNJOUf4UWoLNM30CLQ EUIX3VODtFLFijE3BXPQUAE 1NBTCBBTkQgVFJBTlNNVVJB XGKTTB4NMbDPSYjHPJkuZIU iMVGaVM6zRz1kVXOLAUPIM3 FzU6PbKAIEMMBVVIIJY2gKE 1MgRElTRUFTRVxwYXIgICAg RK3sP1VFL6hIJPxaLNEAU9f OUyBBUkUgVklBQkxFIFxwYX SkDTXiAZ7jCr5uGEUAJTxZQ P7WVNJQZDACUNfRJFBGLLRo ciAgICAgLSBBUFBFTkRJWCB VKDYZDLNDYx9PPORATnPphR FyXHBhclxwbGFpblxmMVxmc rVnRCtgdactTRSxMYjeM9ug SbOoGVShvCvbTYdbm5ApIBU cTRUkJvfktsFsYZqnOH62QO 0gMRK2ERXCJVSlIF1rHY1bT DIwIFxwbGFpblxmMVxmczIw DUluwddyXKPlIEqkH3lbJbO gTEXuuIywBCptd2JgXBKzQU ZzMjBccGFyfXtccnRmMVxzc 2CfP4PqHeZrJUnhanMcMEMo WjytssciFDIcTPO5zxJgCGS wDCdiAAFqFHpgGc5zqIJlfQ akBnTdZMGck2pynqFBKFzoK rKdK555YVQyAPfzr4aab8Eu ADAkaTHma1S4TLOAswgftAu 1h7ciDhTlZcM8vUKqHDogK4 llsnFqqQXeV8LghCBlpAq1a MgoH54tl5A8OltaM5ipYVEh QYLnR7GdWO1cPSWbWct1UXD 0DMW0RGDgLSQyV5VfFT8kHA FhcNMzXAf4z9pnwWdhIKNwC XQ9z2sfXVhyclH4OX1vby2m hFd4j5hgrxOgBOUsEVAoaMF PFOZvY2EguWvfRl9hyTz2eT tvVfzwUOL0Zej2OX5dvu22x oa5yVkgZIUmcfffRjL2JCqr CBJhrqarHDa6KGwmUSVdcEX 6NWZzrCCdD3XnKBUbCU6lyi b7USL7APtxQGFyEiO3BXZii ZXmFKOeuRarFVjnc158UXQ7 TmXkFV9iT3Vdx7C4yF0ujLO yJHAbeVUvGxFaCIOnad6rlU AjGOqyd0YxJWM7xyL2tVPpj PRsVXTcZI11Xjzig8SrSjsg ZTX2HQIpfxSad4Kxx4zaFaI tdgGzJ0hlP2HbEPHtLENzMA VkGtZjhnEgu3Bnp3SrcNYgr Vh4z8wqBHFqYSGktFxcd7lr DMW4GIIbB3E5tGKlv6goKLr wRJIasKT2uzX2ARQxsMKnH4 NsiR4hPWJkXV0cdkl1w7meP HO1NPosIAVzGsE4gpG2FAAv yKPxDEWwjDuoDCwvv162PUF 5UrBeVLZsd1IqR5PruAbxF3 8eeVbuJ33wXSDhuHslnB0lh BlrjI4zEcQgAoXbAFgnhUps bGFpblxmMVxmczIwXGxhbmc eDOWiRWnlL7gqUyEuTNIjgE yhYIhun0CpYEIyDYXvOtpgi zIwXHBhciBJIGhhdmUgcGVy b90cFYdalLImZRDnDHwyJOT enPfly3KgF3kcQQ4xG0KfcL LpruKgcsCzYXvvILOiv7n4r TZdbCyoi8QbbUMwTL51grMc AJZpPVR0BDTdu2wzYV98tim iJyNprH67swYcwpFlKCJms3 dqW0azaRLsz7Tfn8XvniXvC Vvol1AkRD0trJQukqbpiNN8 XTRuiCEaorGqqvL0qIlrEXH bvI4mgK5wwXsuyQ1kHeGeXb OlYDbqJY8rCQGqI1kemQHaL ZVyUBGzA6zoJqDlcE8dbEun GxnhiwZ0CXXdye29 Clinical Information Crohn's 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 code = colon with complication 3867358114) [K50.119]SBO (small bowel obstruction) [K56.609] Gross Description p8odhLTzFPWekPAmHvXeGJT (test code = iGLDjd9gzYFQacIFgCdSmOm 1890896003) NcZnRuYmpcdWMxXGRlZmYwe 3fqm682hNNvj7vhIDHmVxS3 xJTsVPAsjZHrV769GHMoQQc dm4ldw2GjIJMweMXws6S5BI DTqtbnlEp8nApoL53hr9R7G tujN3miSGBbBYCzN1FmUU7v HGHfAxd7PTI0XWA6RRLaAYM tK5IqIO1wYEEelAHcEXh0o7 yxhBhzDSHkMDX2s8nlWCxqk aExZT2lni1niYv6q6fvdtBd BJHdJIGuxOTDHEXeI9AmgBe nMe8dyOb5fWcyWgygTRC5Pl n1PV5ton80nqk8uIkmIJLpl mihLcV3CMfvEMOmqwrrUJs4 QQkjSWWvoJGsXMYbdHRsY1H kSXqzNA9reok5DpIwCH0nxx dpBNayBNEfRGX8IrNoTQVyv 9KwtphgAjIzcf4gui59XAD1 s9IwvDbjNYS3UDW4XrKkYc1 duEIrDDFlIZ9vAcNzwFXmIM Ettc06nQorKHtskeQxyX8zR uCzZLZwiVFwKDWyDD5jvEIj EVTppV3resofZGGyHbAsqon rGSJwmFwuenDzCv1zmYmmES B4LEcwA5tloE1lErY9KWkoO 2ycbP4qGEv2GLdrbSG0WHTn rQ4wED0grixck8rpJAX0TEj mNGMwmfD6hlVtDWMarKKnI4 DwhP44SgUyqDBeB7QppJ8sZ HptEXCykqg5ZyMbNp6pbDMe bRW7OJjoWyfqBTrxMVOmjeH vbnRccGduZGVjXHBsYWluXH BsYWluXGYwXGZzMjRccWxcc DzszR7tAgCfMmMcRXgyPZ6i ZTHjU1joaAKjJKMcNDAlU1h qDoRcxT0nxJvpBZaptbSyIG NwZWNpbWVuIEEgaXMgcmVjZ Jz1SLVkdQ4nIm1ziOZbxJ5t hAEsMTbtHVM2gXCxTGJbRDA cOJLoLD68Y4MmekXyIQuaGN cizlWrUsXqXUZnWZEki75pe dyzgSkuy6LgQ6IqlJ3seFJx GK2rOEEvkgQjo9KbXN7rISE md30laRvmPi04EZgxq4ZrjA VudCAoNjYuOCBjbSBpbiBsZ E0ehCtqgZEgsLGeUCQpbiDq XA2ncD3sKJRim71mDa74GD4 dNf3rQDAdENQ7uRIgGUH6sW GtvDVjOUHouCApWAi1SIr8S ukaW48cwI3xfXWdT4GaTDjk PZ33PPTgDJgeTSFnWR1loOR yKSBhbmQgcHJveGltYWwgY2 AdwI2lIKNlEEMaFPOga4Paf AIdkWAhQK3ttW0xdXZwxBRv TARdUIOoPKQ8sqSwjeO4WOZ lTMAzQZPxRL5dehOvOJbsRi VupoFaH5Sxh2LpsGBgmXixd OMbRWXufd78R8narRRfoLPl miKzBI9kfJnds5z7mSL5uPA aoGMsWBWlPDMutI2pEMVsy3 plfRPcZNWrQHEiyQI7BRivp PRwM3kesy2pVOwjACLmTSQj pPCxYMsiRL6eUN8tNVIwmaM yUF5mh4UyhIWljFAkmIm4UY AeWQUumaRdqTLhAF1azwVtY PwbXrAxrZ1huoPfRWQaoiGu bnRzIHdpdGggYSBkYXJrLWJ fy5xgAPMhBBE0CJ1zRNIrjH Jtp7UwQFQ0MQJpZ2Ytv6Qrb NP4yMqby01zi3SoUL3eJCIb CP7uLBckdkZzCGRvXI84cKO rzKerPYJaw6MiaRBlgTDmBM AfkHvgt9wdFX3iIHOtQOIlB DAuMSBjbSBpbiBncmVhdGVz iSMdeZ6nqxStn75tPBdcP5L 6TQRzHPRysZgzATZnw5PevA IdaRK6rH8bIe5irYDaNr9rG DZzj83kVMPcUWEprg2xn5w5 LBryTE54gKEtPXGoZXfeCDP ccGFyIFRoZSBhcHBlbmRpeC KjSGJvYK5zQHV9XJVtQAGsv RPypJ43SXCzt0mgBHPsG7ym ZMXnMIGuEDXkNL3wzSuhCEC eRQJ6LHJlDqInaOslVL3yMK IfyHXnDMLhwujwo55bd8RyG MFfvt6mGXS7fSWnIJWpNCJk KH2yEF12kNBnVn0rSPbiN25 zT1ZdmSqjys7wMPhlAXNusL DkDQd4ONktVCDbcgiynFm2P AMkG0Cqm71sHJO5clTbRGJa EUpxaOIpDRhpiS6rUR8fwLS oQ3S1MTN7itFnT4BuGEzwoT uoSEBofV0fbdNkhMTlxS0ut CBkaWFtZXRlciAwLjIgLSAw QuRbT42mYTAyjMzhKIL5lXY xYPNex6cpWTVaE0VrFC0sfK VyaWFsLiBXYWxsIHRoaWNrb tUoewInPB9uKFWqXbDoaNDv FtYyBEEjGdFqF07iYZDxtQP vl0VslHU5mTWnAQBeI2Sry0 3fBRSwXVOztANorHC0YCXhm E2jOJIcDBOuQowjPHOswWRg DMIjB7Zwe51eV90wXRdknMG dACTdEVLxJzAkez38jA7haT SyuMB9wTMyAHGpdN2mMNGhY WCzF6LtxLCaMGSoZnIrtAD6 ELojX3NcDJhhxCIbN5noFJZ lJNJrNHSbewRqbKr6MBruTL QtWJB2HKwoSL5kEJFueOZ7P Cq5SCzoccOvtyYkMX24CKUa uyElkIMgJQC5MqIxFVBtNVW sulJvuIw2RAThOGO5vS3kvu CjFpZ3GDnrWRCvOLysT1l8Q WKza3Urm2hiTOCuk9e4yESp aHCrCCQ6WXF4LiUyOUQrLWS sxuFeuXw2LYSyIZT4zT7gbx QaVlV9XNstPYLngEOnbMY6G GEdg2CbnMDzbUoodOe7LCEs x81gmMOxcHnxDFlwtA2pEOw luECdUDBkuaTLNBU1KGZvW6 Jta45pCF5dSFJauHLeSTw2O MGaKIojK7h9BVUnNBYzRX9j dAJdQYtkq5RiYhdkLUPceN4 bTYOgEow3WGirUYYbxDPqf3 CyeRD0eTQeUMSji7NmLQLgM 7Slz93vDWJeBAQfkzQafdHq HuhvXUX3RNRgaQvkXKCgjgl zOQFaBk2iQN5aDFEkpIKdSF SILOH1gKXlqoSgNPZucaAUK ZIbNO08lpqshcAVHZGwVWW5 dC6tg5opo9RrMlJEk8Ewg7L hbnQpXHBhcn0= Embedded Images (test code = 3660246332) [facility] METABOLIC PANEL (NA, K, CL, CO2, GLUCOSE, BUN, CREATININE, CA)2020-07-30 11:29:00 Test Item Value Reference Range Interpretation Comments NA (test code = 136 mmol/L 135-145 4598964695) K (test code = 3.8 mmol/L 3.5-5 Slight 8333672742) hemolysis CL (test code = 102 mmol/L 98-108 4466562176) CO2 TOTAL (test code 25 mmol/L 23-31 = 4189724386) AGAP (test code = 2-16 1221432938) BUN (test code = 2 mg/dL 7-23 L Slight 5396349999) hemolysis GLUCOSE (test code = 182 mg/dL 70-110 H 6998378004) CREATININE (test code 0.68 mg/dL 0.5-1.04 = 6690026140) CALCIUM (test code = 9.0 mg/dL 8.6-10.6 8952245908) eGFR Calculation mL/min/1.73m2 (Non-) (test code = 1724179526) eGFR Calculation mL/min/1.73m2 () (test code = 8458217192) RAUDEL (test code = RAUDEL) Association of Glomerular Filtration Rate (GFR) and Staging of Kidney Disease* + -----+ --------+ +| GFR (mL/min/1.73 m2) ?| With Kidney Damage ?| ?Without Kidney Damage+ +------- +---- --+| ?>90 ?| ?Stage one ?| ? Normal ?+ ------+ ---------+--------- +| ?60-89 ?| ?Stage two ?| ? Decreased GFR ? + -----+ --------+ +| ?30-59 ?| ?Stage three ?| ? Stage three ? + -----+ --------+ +| ?15-29 ?| ?Stage four ? | ? Stage four ?+ ------+ ---------+--------- +| ?<15 (or dialysis) ? ?| ?Stage five ? | ? Stage five ?+ ------+ ---------+--------- + *Each stage assumes the associated GFR level has been in effect for at least three months. ?Stages 1 to 5, with or without kidney disease, indicate chronic kidney disease. Notes: Determination of stages one and two (with eGFR >59mL/min/1.73 m2) requires estimation of kidney damage for at least three months as defined by structural or functional abnormalities of the kidney, manifested by either:Pathological abnormalities or Markers of kidney damage (including abnormalities in the composition of the blood or urine or abnormalities in imaging tests). Lab Interpretation Abnormal (test code = 82921-4) [facility]00 Test Item Value Reference Range Interpretation Comments MAGNESIUM (test code = 0346020142) 1.4 mg/dL 1.7-2.4 L Lab Interpretation (test code = Abnormal 10440-4) [facility] 11:29:00 Test Item Value Reference Range Interpretation Comments PHOSPHORUS (test code = 9846603711) 3.6 mg/dL 2.5-5 Lab Interpretation (test code = Normal 89889-0) [facility] [id number] 14:01:19EXAM: XR KUB 07/29/2020 4:42 AM. 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 COMPARISON: CT AP W, 07/23/2020. TECHNIQUE: Frontal radiographs of the abdomen and pelvis, ?4 images. FINDINGS: The tip of a surgical drain projects over right hemipelvis. A dilated loop of the small bowel projects over the LLQ, 4.9 cm, suspiciousfor incomplete small bowel obstruction. A long row of vertical surgical sutures lies to the left of the spine. Preliminary Report Dictated by Resident: Neda John I reviewed this study and agree with minor modifications (no call needed tothe referring physician). IShahriar MD., have reviewed this study and agree with theabove report.[facility], Radiant Results Inft User - 07/29/2020 9:02 AM CDTEXAM: XR KUB 07/29/2020 4:42 AM. 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 COMPARISON: CT AP W, 07/23/2020.TECHNIQUE: Frontal radiographs of the abdomen and pelvis, 4 images.FINDINGS:The tip of a surgical drain projects over right hemipelvis.A dilated loop of the small bowel projects over the LLQ, 4.9 cm, suspiciousfor incomplete small bowel obstruction.A long row of vertical surgical sutures lies to the left of the spine.Preliminary Report Dictated by Resident: Neda Sanchez reviewed this study and agree with minormodifications (no call needed tothe referring physician).IShahriar MD., have reviewed this study and agree with theabove report.[facility] (NA, K, CL, CO2, GLUCOSE, BUN, CREATININE, CA)2020-07-29 12:26:00 Test Item Value Reference Range Interpretation Comments NA (test code = 137 mmol/L 135-145 0823980822) K (test code = 3.4 mmol/L 3.5-5 L 4017725359) CL (test code = 102 mmol/L 98-108 8708808959) CO2 TOTAL (test code = 31 mmol/L 23-31 5197453855) AGAP (test code = 2-16 3334889740) BUN (test code = 3 mg/dL 7-23 L 9029570342) GLUCOSE (test code = 118 mg/dL 70-110 H 3879965790) CREATININE (test code = 0.81 mg/dL 0.5-1.04 3748185668) CALCIUM (test code = 9.4 mg/dL 8.6-10.6 0857193324) eGFR Calculation mL/min/1.73m2 (Non-) (test code = 0394603538) eGFR Calculation mL/min/1.73m2 () (test code = 7587046733) RAUDEL (test code = RAUDEL) Association of Glomerular Filtration Rate (GFR) and Staging of Kidney Disease* + --+ --+ ------+| GFR (mL/min/1.73 m2) ?| With Kidney Damage ?| ?Without Kidney Damage+ --------+ --------+ +| ?>90 ?| ?Stage one ?| ? Normal ?+ ---+ ---+ -------+| ?60-89 ?| ?Stage two ?| ? Decreased GFR ? + --+ --+ ------+| ?30-59 ?| ?Stage three ?| ? Stage three ? + --+ --+ ------+| ?15-29 ?| ?Stage four ? | ? Stage four ?+ ---+ ---+ -------+| ?<15 (or dialysis) ? ?| ?Stage five ? | ? Stage five ?+ ---+ ---+ -------+ *Each stage assumes the associated GFR level has been in effect for at least three months. ?Stages 1 to 5, with or without kidney disease, indicate chronic kidney disease. Notes: Determination of stages one and two (with eGFR >59mL/min/1.73 m2) requires estimation of kidney damage for at least three months as defined by structural or functional abnormalities of the kidney, manifested by either:Pathological abnormalities or Markers of kidney damage (including abnormalities in the composition of the blood or urine or abnormalities in imaging tests). Lab Interpretation Abnormal (test code = 47078-7) [facility]2020-[facility]-14 11:05:00 Test Item Value Reference Range Interpretation Comments Fibrinogen (test code = 1089 mg/dL 167-453 H [id number]) Lab Interpretation (test code = Abnormal 77903-0) [facility]PTT2020-09-14 10:58:00 Test Item Value Reference Range Interpretation Comments APTT Patient (test code = See_Comment [ Automated message] 3173-2) The system [employer] generated this result transmitted ref erence range: 26 - 36 Seconds. The re ference range was not u sed to interpret this result as normal/abnor mal. Lab Interpretation (test Normal code = 42333-1) [facility] CenterPROTHROMBIN TIME / [id number] 10:58:00 Test Item Value Reference Range Interpretation Comments PROTIME PATIENT (test See_Comment [Auto mated message] code = 5964-2) The system [employer] generated this result transmitted ref erence range: 10.1 - 1 2.6 Seconds. The re ference range was not u sed to interpret this result as normal/abnor mal. INR (test code = 6301-6) Nor mal INR <1.1; Warfarin Therap eutic range 2.0 to 3. 0 or 2.5 to 3.5, dep ending upon the indica tions. Lab Interpretation (test Normal code = 92426-5) [facility] CenterCBC WITHOUT [id number] 10:54:00 Test Item Value Reference Range Interpretation Comments WBC (test code = 6690-2) See_Comment [A utomated message] The system [employer] generated this result transmit cral reference range : 4.30 - 11.10 10*3/?L. The reference range was not used to interpret this result as normal/abnormal . RBC (test code = 789-8) See_Comment L [Au tomated message] The system [employer] generated this result transmit carl reference range : 3.93 - 5.25 10* 6/?L. The reference r madelin was not used to interpret this result as normal/abnormal . HGB (test code = 718-7) 10.7 g/dL 11.6-15 L HCT (test code = 4544-3) 32.6 % 35.7-45.2 L MCH (test code = 785-6) 31.8 pg 25.9-32.8 MCV (test code = 787-2) 97.0 fL 80.6-95.5 H MCHC (test code = 786-4) 32.8 g/dL 31.6-35.1 PLT (test code = 777-3) See_Comment [Au tomated message] The system [employer] generated this result transmit carl reference range : 166 - 358 10*3/?L. The reference range was not used to interpret this result as normal/abnormal . MPV (test code = 10.0 fL 9.5-12.9 92053-2) RDW-CV (test code = 12.0 % 12-15.5 788-0) RDW-SD (test code = 43.2 fL 39-49.9 28415-0) NRBC x10^3 (test code = <0.01 See_Comment [Au tomated message] [id number]) The system [employer] generated this result transmit carl reference range : 10*3/?L. The reference range was not used to interpret this result as normal/abnormal . NRBC/100 WBC (test code See_Comment [Au tomated message] = 0419900151) The system [employer] generated this result transmit carl reference range : 0.0 - 10.0 /100 WBC s. The reference r madelin was not used to interpret this result as normal/abnormal . IPF % (test code = 2679955819) Lab Interpretation (test Abnormal code = 88305-8) [facility] CenterBLOOD CULTURE [id number] 22:01:00 Test Item Value Reference Range Interpretation Comments Blood Culture-Aerobic No organisms No growth Previo us (test code = 60198-6) isolated prelim inary verified result was Culture In Progress on 07/23/2020 at 200 1 CDTPrevious preliminary verified result was No growth a t 24 hours on 07/24/2020 at 170 1 CDTPrevious preliminary verified result was No growth a t 48 hours on 07/25/2020 at 17 01 CDTPrevious preliminary verified result was No growth a t 72 hours on 07/26/2020 at 17 02 CDT Blood No organisms No growth Previous Culture-Anaerobic isolated preliminar y (test code = 84980-2) verifi ed result was Culture In Progress on 07/23/2020 at 200 1 CDTPrevious preliminary verified result was No growth a t 24 hours on 07/24/2020 at 170 1 CDTPrevious preliminary verified result was No growth a t 48 hours on 07/25/2020 at 17 01 CDTPrevious preliminary verified result was No growth a t 72 hours on 07/26/2020 at 17 02 CDT Lab Interpretation Normal (test code = 72712-9) [facility] [id number] 22:01:00 Test Item Value Reference Range Interpretation Comments Blood Culture-Aerobic No organisms No growth Previo us (test code = 77888-7) isolated prelim inary verified result was Culture In Progress on 07/23/2020 at 200 1 CDTPrevious preliminary verified result was No growth a t 24 hours on 07/24/2020 at 170 1 CDTPrevious preliminary verified result was No growth a t 48 hours on 07/25/2020 at 17 01 CDTPrevious preliminary verified result was No growth a t 72 hours on 07/26/2020 at 17 02 CDT Blood No organisms No growth Previous Culture-Anaerobic isolated preliminar y (test code = 97240-8) verifi ed result was Culture In Progress on 07/23/2020 at 200 1 CDTPrevious preliminary verified result was No growth a t 24 hours on 07/24/2020 at 170 1 CDTPrevious preliminary verified result was No growth a t 48 hours on 07/25/2020 at 17 01 CDTPrevious preliminary verified result was No growth a t 72 hours on 07/26/2020 at 17 02 CDT Lab Interpretation Normal (test code = 87507-6) [facility] (NA, K, CL, CO2, GLUCOSE, BUN, CREATININE, CA)2020-07-28 12:34:00 Test Item Value Reference Range Interpretation Comments NA (test code = 135 mmol/L 135-145 1259147020) K (test code = 3.6 mmol/L 3.5-5 1894161613) CL (test code = 105 mmol/L 98-108 5630895111) CO2 TOTAL (test code = 24 mmol/L 23-31 6064289386) AGAP (test code = 2-16 8550348609) BUN (test code = 3 mg/dL 7-23 L 5660834373) GLUCOSE (test code = 132 mg/dL 70-110 H 6641185701) CREATININE (test code = 0.68 mg/dL 0.5-1.04 6375920953) CALCIUM (test code = 8.6 mg/dL 8.6-10.6 7992305861) eGFR Calculation mL/min/1.73m2 (Non-) (test code = 7787912157) eGFR Calculation mL/min/1.73m2 () (test code = 9851709324) RAUDEL (test code = RAUDEL) Association of Glomerular Filtration Rate (GFR) and Staging of Kidney Disease* + --+ --+ ------+| GFR (mL/min/1.73 m2) ?| With Kidney Damage ?| ?Without Kidney Damage+ --------+ --------+ +| ?>90 ?| ?Stage one ?| ? Normal ?+ ---+ ---+ -------+| ?60-89 ?| ?Stage two ?| ? Decreased GFR ? + --+ --+ ------+| ?30-59 ?| ?Stage three ?| ? Stage three ? + --+ --+ ------+| ?15-29 ?| ?Stage four ? | ? Stage four ?+ ---+ ---+ -------+| ?<15 (or dialysis) ? ?| ?Stage five ? | ? Stage five ?+ ---+ ---+ -------+ *Each stage assumes the associated GFR level has been in effect for at least three months. ?Stages 1 to 5, with or without kidney disease, indicate chronic kidney disease. Notes: Determination of stages one and two (with eGFR >59mL/min/1.73 m2) requires estimation of kidney damage for at least three months as defined by structural or functional abnormalities of the kidney, manifested by either:Pathological abnormalities or Markers of kidney damage (including abnormalities in the composition of the blood or urine or abnormalities in imaging tests). Lab Interpretation Abnormal (test code = 53531-7) [facility] WITHOUT [id number] 10:46:00 Test Item Value Reference Range Interpretation Comments WBC (test code = 6690-2) See_Comment [A utomated message] The system [employer] generated this result transmit carl reference range : 4.30 - 11.10 10*3/?L. The reference range was not used to interpret this result as normal/abnormal . RBC (test code = 789-8) See_Comment L [Au tomated message] The system [employer] generated this result transmit carl reference range : 3.93 - 5.25 10* 6/?L. The reference r madelin was not used to interpret this result as normal/abnormal . HGB (test code = 718-7) 8.7 g/dL 11.6-15 L HCT (test code = 4544-3) 26.0 % 35.7-45.2 L MCH (test code = 785-6) 32.3 pg 25.9-32.8 MCV (test code = 787-2) 96.7 fL 80.6-95.5 H MCHC (test code = 786-4) 33.5 g/dL 31.6-35.1 PLT (test code = 777-3) See_Comment [Au tomated message] The system [employer] generated this result transmit carl reference range : 166 - 358 10*3/?L. The reference range was not used to interpret this result as normal/abnormal . MPV (test code = 10.0 fL 9.5-12.9 82605-8) RDW-CV (test code = 12.0 % 12-15.5 788-0) RDW-SD (test code = 42.5 fL 39-49.9 49904-1) NRBC x10^3 (test code = <0.01 See_Comment [Au tomated message] 4777236688) The system [employer] generated this result transmit carl reference range : 10*3/?L. The reference range was not used to interpret this result as normal/abnormal . NRBC/100 WBC (test code See_Comment [Au tomated message] = 2924218039) The system [facility] generated this result transmit carl reference range : 0.0 - 10.0 /100 WBC s. The reference r madelin was not used to interpret this result as normal/abnormal . IPF % (test code = 8761140304) Lab Interpretation (test Abnormal code = 85876-3) [facility] METABOLIC PANEL (NA, K, CL, CO2, GLUCOSE, BUN, CREATININE, CA)2020-07-27 11:40:00 Test Item Value Reference Range Interpretation Comments NA (test code = 134 mmol/L 135-145 L 1099835679) K (test code = 3.7 mmol/L 3.5-5 1804123753) CL (test code = 104 mmol/L 98-108 8558551694) CO2 TOTAL (test code = 29 mmol/L 23-31 9982326139) AGAP (test code = 2-16 L 6689660849) BUN (test code = 7 mg/dL 7-23 3728039426) GLUCOSE (test code = 169 mg/dL 70-110 H 8495134104) CREATININE (test code = 0.63 mg/dL 0.5-1.04 0322051500) CALCIUM (test code = 8.3 mg/dL 8.6-10.6 L 2175368647) eGFR Calculation mL/min/1.73m2 (Non-) (test code = 3601425281) eGFR Calculation mL/min/1.73m2 () (test code = 0951653354) RAUDEL (test code = RAUDEL) Association of Glomerular Filtration Rate (GFR) and Staging of Kidney Disease* + --+ --+ ------+| GFR (mL/min/1.73 m2) ?| With Kidney Damage ?| ?Without Kidney Damage+ --------+ --------+ +| ?>90 ?| ?Stage one ?| ? Normal ?+ ---+ ---+ -------+| ?60-89 ?| ?Stage two ?| ? Decreased GFR ? + --+ --+ ------+| ?30-59 ?| ?Stage three ?| ? Stage three ? + --+ --+ ------+| ?15-29 ?| ?Stage four ? | ? Stage four ?+ ---+ ---+ -------+| ?<15 (or dialysis) ? ?| ?Stage five ? | ? Stage five ?+ ---+ ---+ -------+ *Each stage assumes the associated GFR level has been in effect for at least three months. ?Stages 1 to 5, with or without kidney disease, indicate chronic kidney disease. Notes: Determination of stages one and two (with eGFR >59mL/min/1.73 m2) requires estimation of kidney damage for at least three months as defined by structural or functional abnormalities of the kidney, manifested by either:Pathological abnormalities or Markers of kidney damage (including abnormalities in the composition of the blood or urine or abnormalities in imaging tests). Lab Interpretation Abnormal (test code = 91998-6) [facility] WITHOUT [id number] 11:18:00 Test Item Value Reference Range Interpretation Comments WBC (test code = 6690-2) See_Comment H [A utomated message] The system [employer] generated this result transmit carl reference range : 4.30 - 11.10 10*3/?L. The reference range was not used to interpret this result as normal/abnormal . RBC (test code = 789-8) See_Comment L [Au tomated message] The system [employer] generated this result transmit carl reference range : 3.93 - 5.25 10* 6/?L. The reference r madelin was not used to interpret this result as normal/abnormal . HGB (test code = 718-7) 8.4 g/dL 11.6-15 L HCT (test code = 4544-3) 25.8 % 35.7-45.2 L MCH (test code = 785-6) 32.2 pg 25.9-32.8 MCV (test code = 787-2) 98.9 fL 80.6-95.5 H MCHC (test code = 786-4) 32.6 g/dL 31.6-35.1 PLT (test code = 777-3) See_Comment [Au tomated message] The system [employer] generated this result transmit carl reference range : 166 - 358 10*3/?L. The reference range was not used to interpret this result as normal/abnormal . MPV (test code = 10.8 fL 9.5-12.9 77956-5) RDW-CV (test code = 11.9 % 12-15.5 L 788-0) RDW-SD (test code = 43.5 fL 39-49.9 16421-8) NRBC x10^3 (test code = <0.01 See_Comment [Au tomated message] 7577228572) The system [employer] generated this result transmit carl reference range : 10*3/?L. The reference range was not used to interpret this result as normal/abnormal . NRBC/100 WBC (test code See_Comment [Au tomated message] = 1443964359) The system [employer] generated this result transmit carl reference range : 0.0 - 10.0 /100 WBC s. The reference r madelin was not used to interpret this result as normal/abnormal . IPF % (test code = 6531531400) Lab Interpretation (test Abnormal code = 17809-5) [facility] METABOLIC PANEL (NA, K, CL, CO2, GLUCOSE, BUN, CREATININE, CA)2020-07-26 09:39:00 Test Item Value Reference Range Interpretation Comments NA (test code = 136 mmol/L 135-145 1668760748) K (test code = 3.9 mmol/L 3.5-5 0843599469) CL (test code = 104 mmol/L 98-108 9711930319) CO2 TOTAL (test code = 28 mmol/L 23-31 9370459558) AGAP (test code = 2-16 2832862052) BUN (test code = 11 mg/dL 7-23 3888504658) GLUCOSE (test code = 136 mg/dL 70-110 H 9159632310) CREATININE (test code = 0.84 mg/dL 0.5-1.04 8795803251) CALCIUM (test code = 8.2 mg/dL 8.6-10.6 L 9696997953) eGFR Calculation mL/min/1.73m2 (Non-) (test code = 2784894863) eGFR Calculation mL/min/1.73m2 () (test code = 7577278131) RAUDEL (test code = RAUDEL) Association of Glomerular Filtration Rate (GFR) and Staging of Kidney Disease* + --+ --+ ------+| GFR (mL/min/1.73 m2) ?| With Kidney Damage ?| ?Without Kidney Damage+ --------+ --------+ +| ?>90 ?| ?Stage one ?| ? Normal ?+ ---+ ---+ -------+| ?60-89 ?| ?Stage two ?| ? Decreased GFR ? + --+ --+ ------+| ?30-59 ?| ?Stage three ?| ? Stage three ? + --+ --+ ------+| ?15-29 ?| ?Stage four ? | ? Stage four ?+ ---+ ---+ -------+| ?<15 (or dialysis) ? ?| ?Stage five ? | ? Stage five ?+ ---+ ---+ -------+ *Each stage assumes the associated GFR level has been in effect for at least three months. ?Stages 1 to 5, with or without kidney disease, indicate chronic kidney disease. Notes: Determination of stages one and two (with eGFR >59mL/min/1.73 m2) requires estimation of kidney damage for at least three months as defined by structural or functional abnormalities of the kidney, manifested by either:Pathological abnormalities or Markers of kidney damage (including abnormalities in the composition of the blood or urine or abnormalities in imaging tests). Lab Interpretation Abnormal (test code = 77651-1) [facility] WITHOUT [id number] 08:44:00 Test Item Value Reference Range Interpretation Comments WBC (test code = 6690-2) See_Comment [A utomated message] The system [employer] generated this result transmit carl reference range : 4.30 - 11.10 10*3/?L. The reference range was not used to interpret this result as normal/abnormal . RBC (test code = 789-8) See_Comment L [Au tomated message] The system [employer] generated this result transmit carl reference range : 3.93 - 5.25 10* 6/?L. The reference r madelin was not used to interpret this result as normal/abnormal . HGB (test code = 718-7) 9.2 g/dL 11.6-15 L HCT (test code = 4544-3) 27.5 % 35.7-45.2 L MCH (test code = 785-6) 32.6 pg 25.9-32.8 MCV (test code = 787-2) 97.5 fL 80.6-95.5 H MCHC (test code = 786-4) 33.5 g/dL 31.6-35.1 PLT (test code = 777-3) See_Comment L [Au tomated message] The system [employer] generated this result transmit carl reference range : 166 - 358 10*3/?L. The reference range was not used to interpret this result as normal/abnormal . MPV (test code = 11.0 fL 9.5-12.9 34046-6) RDW-CV (test code = 11.8 % 12-15.5 L 788-0) RDW-SD (test code = 42.4 fL 39-49.9 67212-2) NRBC x10^3 (test code = <0.01 See_Comment [Au tomated message] 7123642363) The system [employer] generated this result transmit carl reference range : 10*3/?L. The reference range was not used to interpret this result as normal/abnormal . NRBC/100 WBC (test code See_Comment [Au tomated message] = 8160317886) The system [employer] generated this result transmit carl reference range : 0.0 - 10.0 /100 WBC s. The reference r madelin was not used to interpret this result as normal/abnormal . IPF % (test code = 6468446601) Lab Interpretation (test Abnormal code = 36359-0) [facility] METABOLIC PANEL (NA, K, CL, CO2, GLUCOSE, BUN, CREATININE, CA)2020-07-26 00:48:00 Test Item Value Reference Range Interpretation Comments NA (test code = 137 mmol/L 135-145 1397242188) K (test code = 4.5 mmol/L 3.5-5 3703771503) CL (test code = 102 mmol/L 98-108 9817714805) CO2 TOTAL (test code = 28 mmol/L 23-31 4758223015) AGAP (test code = 2-16 4875939522) BUN (test code = 13 mg/dL 7-23 4415900644) GLUCOSE (test code = 165 mg/dL 70-110 H 4109147244) CREATININE (test code = 0.92 mg/dL 0.5-1.04 8405644123) CALCIUM (test code = 8.5 mg/dL 8.6-10.6 L 0603766018) eGFR Calculation mL/min/1.73m2 (Non-) (test code = 5036799054) eGFR Calculation mL/min/1.73m2 () (test code = 2508632814) RAUDEL (test code = RAUDEL) Association of Glomerular Filtration Rate (GFR) and Staging of Kidney Disease* + --+ --+ ------+| GFR (mL/min/1.73 m2) ?| With Kidney Damage ?| ?Without Kidney Damage+ --------+ --------+ +| ?>90 ?| ?Stage one ?| ? Normal ?+ ---+ ---+ -------+| ?60-89 ?| ?Stage two ?| ? Decreased GFR ? + --+ --+ ------+| ?30-59 ?| ?Stage three ?| ? Stage three ? + --+ --+ ------+| ?15-29 ?| ?Stage four ? | ? Stage four ?+ ---+ ---+ -------+| ?<15 (or dialysis) ? ?| ?Stage five ? | ? Stage five ?+ ---+ ---+ -------+ *Each stage assumes the associated GFR level has been in effect for at least three months. ?Stages 1 to 5, with or without kidney disease, indicate chronic kidney disease. Notes: Determination of stages one and two (with eGFR >59mL/min/1.73 m2) requires estimation of kidney damage for at least three months as defined by structural or functional abnormalities of the kidney, manifested by either:Pathological abnormalities or Markers of kidney damage (including abnormalities in the composition of the blood or urine or abnormalities in imaging tests). Lab Interpretation Abnormal (test code = 62827-3) [facility] 00:48:00 Test Item Value Reference Range Interpretation Comments MAGNESIUM (test code = 0517834765) 1.5 mg/dL 1.7-2.4 L Lab Interpretation (test code = Abnormal 05887-3) [facility] CenterPROTHROMBIN TIME / [id number] 00:29:00 Test Item Value Reference Range Interpretation Comments PROTIME PATIENT (test See_Comment H [Auto mated message] code = 5964-2) The system [employer] generated this result transmitted ref erence range: 10.1 - 1 2.6 Seconds. The reference range was not used to int erpret this result as normal/abnormal . INR (test code = 6301-6) Nor mal INR <1.1; Warfarin Therap eutic range 2.0 to 3. 0 or 2.5 to 3.5, dep ending upon the indica tions. Lab Interpretation (test Abnormal code = 26730-9) [facility]eraPTT[facility] 00:29:00 Test Item Value Reference Range Interpretation Comments APTT Patient (test code = See_Comment [ Automated message] 3173-2) The system [employer] generated this result transmitted ref erence range: 26 - 36 Seconds. The re ference range was not u sed to interpret this result as normal/abnor mal. Lab Interpretation (test Normal code = 68255-7) [facility] WITHOUT [id number] 00:24:00 Test Item Value Reference Range Interpretation Comments WBC (test code = 6690-2) See_Comment H [A utomated message] The system [employer] generated this result transmit carl reference range : 4.30 - 11.10 10*3/?L. The reference range was not used to interpret this result as normal/abnormal . RBC (test code = 789-8) See_Comment L [Au tomated message] The system [employer] generated this result transmit carl reference range : 3.93 - 5.25 10* 6/?L. The reference r madelin was not used to interpret this result as normal/abnormal . HGB (test code = 718-7) 10.9 g/dL 11.6-15 L HCT (test code = 4544-3) 33.9 % 35.7-45.2 L MCH (test code = 785-6) 32.1 pg 25.9-32.8 MCV (test code = 787-2) 99.7 fL 80.6-95.5 H MCHC (test code = 786-4) 32.2 g/dL 31.6-35.1 PLT (test code = 777-3) See_Comment [Au tomated message] The system [employer] generated this result transmit carl reference range : 166 - 358 10*3/?L. The reference range was not used to interpret this result as normal/abnormal . MPV (test code = 10.8 fL 9.5-12.9 73381-5) RDW-CV (test code = 12.0 % 12-15.5 788-0) RDW-SD (test code = 44.0 fL 39-49.9 02127-5) NRBC x10^3 (test code = <0.01 See_Comment [Au tomated message] 0563421050) The system [employer] generated this result transmit carl reference range : 10*3/?L. The reference range was not used to interpret this result as normal/abnormal . NRBC/100 WBC (test code See_Comment [Au tomated message] = 8821034028) The system [employer] generated this result transmit carl reference range : 0.0 - 10.0 /100 WBC s. The reference r madelin was not used to interpret this result as normal/abnormal . IPF % (test code = 3950723168) Lab Interpretation (test Abnormal code = 02693-6) [facility] METABOLIC PANEL (NA, K, CL, CO2, GLUCOSE, BUN, CREATININE, CA)2020-07-25 12:05:00 Test Item Value Reference Range Interpretation Comments NA (test code = 137 mmol/L 135-145 4582875801) K (test code = 4.0 mmol/L 3.5-5 2643016399) CL (test code = 104 mmol/L 98-108 1340378692) CO2 TOTAL (test code = 28 mmol/L 23-31 6835343276) AGAP (test code = 2-16 6362699592) BUN (test code = 13 mg/dL 7-23 4532921198) GLUCOSE (test code = 207 mg/dL 70-110 H 2486579207) CREATININE (test code = 0.79 mg/dL 0.5-1.04 0307853669) CALCIUM (test code = 8.5 mg/dL 8.6-10.6 L 2125890561) eGFR Calculation mL/min/1.73m2 (Non-) (test code = 0529073110) eGFR Calculation mL/min/1.73m2 () (test code = 6004142517) RAUDEL (test code = RAUDEL) Association of Glomerular Filtration Rate (GFR) and Staging of Kidney Disease* + --+ --+ ------+| GFR (mL/min/1.73 m2) ?| With Kidney Damage ?| ?Without Kidney Damage+ --------+ --------+ +| ?>90 ?| ?Stage one ?| ? Normal ?+ ---+ ---+ -------+| ?60-89 ?| ?Stage two ?| ? Decreased GFR ? + --+ --+ ------+| ?30-59 ?| ?Stage three ?| ? Stage three ? + --+ --+ ------+| ?15-29 ?| ?Stage four ? | ? Stage four ?+ ---+ ---+ -------+| ?<15 (or dialysis) ? ?| ?Stage five ? | ? Stage five ?+ ---+ ---+ -------+ *Each stage assumes the associated GFR level has been in effect for at least three months. ?Stages 1 to 5, with or without kidney disease, indicate chronic kidney disease. Notes: Determination of stages one and two (with eGFR >59mL/min/1.73 m2) requires estimation of kidney damage for at least three months as defined by structural or functional abnormalities of the kidney, manifested by either:Pathological abnormalities or Markers of kidney damage (including abnormalities in the composition of the blood or urine or abnormalities in imaging tests). Lab Interpretation Abnormal (test code = 26915-8) [facility] WITHOUT [id number] 12:02:00 Test Item Value Reference Range Interpretation Comments WBC (test code = 6690-2) See_Comment H [A utomated message] The system [employer] generated this result transmit carl reference range : 4.30 - 11.10 10*3/?L. The reference range was not used to interpret this result as normal/abnormal . RBC (test code = 789-8) See_Comment L [Au tomated message] The system [employer] generated this result transmit carl reference range : 3.93 - 5.25 10* 6/?L. The reference r madelin was not used to interpret this result as normal/abnormal . HGB (test code = 718-7) 12.0 g/dL 11.6-15 HCT (test code = 4544-3) 35.6 % 35.7-45.2 L MCH (test code = 785-6) 32.7 pg 25.9-32.8 MCV (test code = 787-2) 97.0 fL 80.6-95.5 H MCHC (test code = 786-4) 33.7 g/dL 31.6-35.1 PLT (test code = 777-3) See_Comment [Au tomated message] The system [employer] generated this result transmit carl reference range : 166 - 358 10*3/?L. The reference range was not used to interpret this result as normal/abnormal . MPV (test code = 10.9 fL 9.5-12.9 29363-3) RDW-CV (test code = 12.1 % 12-15.5 788-0) RDW-SD (test code = 43.3 fL 39-49.9 14009-8) NRBC x10^3 (test code = <0.01 See_Comment [Au tomated message] 1543622167) The system [employer] generated this result transmit carl reference range : 10*3/?L. The reference range was not used to interpret this result as normal/abnormal . NRBC/100 WBC (test code See_Comment [Au tomated message] = 3495922042) The system [employer] generated this result transmit carl reference range : 0.0 - 10.0 /100 WBC s. The reference r madelin was not used to interpret this result as normal/abnormal . IPF % (test code = 7266817494) Lab Interpretation (test Abnormal code = 71841-2) [facility] CenterABORH [id number] 08:01:35 Test Item Value Reference Range Interpretation Comments ABO & RH (test code A Positive Performe d at [facility] = 20) Laboratory [facility] Blood [facility] s [id number] Free: [phone] A No. [id number] [facility] CenterType and Screen - ONCE [id number] 05:04:45 Test Item Value Reference Range Interpretation Comments ABO & RH (test code A POSITIVE Performe d at [facility] = 20) Laboratory [facility] Blood [facility] s [address]Pbfi Free: [phone] A No. [id number] IAT (test code = Negative Performed a t [facility] 1185) Laboratory [facility] Blood [facility] s [address]Ygow Free: [phone] A No. [id number] [facility] CenterXR ABDOMEN 1 [id number] 13:39:15EXAM: XR ABDOMEN 1 VW 07/24/2020 1:46 AM. INDICATION: 44 years-old Female, with NGt placement COMPARISON: CT abdomen, 07/23/2020 TECHNIQUE: Frontal radiograph of the abdomen and pelvis.FINDINGS: The tip of the NGT is at the gastric fundus, with the sidehole projectingover the EG junction. Multiple dilated small bowel loops in the left upper quadrant areredemonstrated. Preliminary Report Dictated by Resident: Neda John I reviewed this study and agree. Shahriar Caban MD., have reviewed this study and agree with theabove report.[facility], Radiant Results Inft User - 07/24/2020 8:40 AM CDTEXAM: XR ABDOMEN 1 VW 07/24/2020 1:46 AM. INDICATION: 44 years-old Female, with NGt placement COMPARISON:CT abdomen, 07/23/2020TECHNIQUE: Frontal radiograph of the abdomen and pelvis.FINDINGS:The tip of the NGT is at the gastric fundus, with the sidehole projectingover the EG junction.Multiple dilated smallbowel loops in the left upper quadrant areredemonstrated. Preliminary Report Dictated by Resident: Luis Sanchez reviewed this study and agree.Shahriar Caban MD., have reviewed this study and agree with theabove report.[facility] (NA, K, CL, CO2, GLUCOSE, BUN, CREATININE, CA) 2020-07-24 08:29:00 Test Item Value Reference Range Interpretation Comments NA (test code = 137 mmol/L 135-145 3176641212) K (test code = 4.1 mmol/L 3.5-5 Slight 1250458012) hemolysis CL (test code = 102 mmol/L 98-108 6497460304) CO2 TOTAL (test code 24 mmol/L 23-31 = 7871067860) AGAP (test code = 2-16 9001958520) BUN (test code = 19 mg/dL 7-23 Slight 9087126731) hemolysis GLUCOSE (test code = 170 mg/dL 70-110 H 1207074772) CREATININE (test code 0.93 mg/dL 0.5-1.04 = 3618011679) CALCIUM (test code = 8.9 mg/dL 8.6-10.6 9463894288) eGFR Calculation mL/min/1.73m2 (Non-) (test code = 1045234422) eGFR Calculation mL/min/1.73m2 () (test code = 7559914614) RAUDEL (test code = RAUDEL) Association of Glomerular Filtration Rate (GFR) and Staging of Kidney Disease* + -----+ --------+ +| GFR (mL/min/1.73 m2) ?| With Kidney Damage ?| ?Without Kidney Damage+ +------- +---- --+| ?>90 ?| ?Stage one ?| ? Normal ?+ ------+ ---------+--------- +| ?60-89 ?| ?Stage two ?| ? Decreased GFR ? + -----+ --------+ +| ?30-59 ?| ?Stage three ?| ? Stage three ? + -----+ --------+ +| ?15-29 ?| ?Stage four ? | ? Stage four ?+ ------+ ---------+--------- +| ?<15 (or dialysis) ? ?| ?Stage five ? | ? Stage five ?+ ------+ ---------+--------- + *Each stage assumes the associated GFR level has been in effect for at least three months. ?Stages 1 to 5, with or without kidney disease, indicate chronic kidney disease. Notes: Determination of stages one and two (with eGFR >59mL/min/1.73 m2) requires estimation of kidney damage for at least three months as defined by structural or functional abnormalities of the kidney, manifested by either:Pathological abnormalities or Markers of kidney damage (including abnormalities in the composition of the blood or urine or abnormalities in imaging tests). Lab Interpretation Abnormal (test code = 07329-3) [facility] WITHOUT [id number] 08:27:00 Test Item Value Reference Range Interpretation Comments WBC (test code = See_Comment H [Automated message] 6690-2) The system [employer] generated this result transmitted ref erence range: 4.30 - 1 1.10 10*3/?L. The reference range was not used to int erpret this result as normal/abnormal . RBC (test code = 789-8) See_Comment [Au tomated message] The system [employer] generated this result transmitted ref erence range: 3.93 - 5 .25 10*6/?L. The reference range was not used to int erpret this result as normal/abnormal . HGB (test code = 718-7) 15.1 g/dL 11.6-15 H HCT (test code = 44.2 % 35.7-45.2 4544-3) MCH (test code = 785-6) 32.2 pg 25.9-32.8 MCV (test code = 787-2) 94.2 fL 80.6-95.5 MCHC (test code = 34.2 g/dL 31.6-35.1 786-4) PLT (test code = 777-3) See_Comment [Au tomated message] The system [employer] generated this result transmitted ref erence range: 166 - 35 8 10*3/?L. The reference range was not used to int erpret this result as normal/abnormal . MPV (test code = 11.0 fL 9.5-12.9 23576-3) RDW-CV (test code = 12.0 % 12-15.5 788-0) RDW-SD (test code = 41.5 fL 39-49.9 78229-0) NRBC x10^3 (test code = <0.01 See_Comment [Au tomated message] [id number]) The system [employer] generated this result transmitted ref erence range: 10*3/?L. The reference range was not used to int erpret this result as normal/abnormal . NRBC/100 WBC (test code See_Comment [Au tomated message] = 6434491002) The system [facility] generated this result transmitted ref erence range: 0.0 - 10 .0 /100 WBCs. The reference range was not used to int erpret this result as normal/abnormal . IPF % (test code = 5.7 % 1.3-7.7 Platelet count [id number]) measured by fluorescence me thod. Lab Interpretation Abnormal (test code = 10150-0) [facility]2020-07-24 01:08:00 Test Item Value Reference Range Interpretation Comments SARS-CoV-2 Rapid ID NOW Not Detected Not Detected (test code = 73156-3) RAUDEL (test code = RAUDEL) ID NOW COVID-19 Assay is an isothermal nucleic acid amplification test intended for the qualitative detection of nucleic acid from SARS-CoV-2 viral RNA in nasopharyngeal ([employer]) specimens. It is used under Emergency Use Authorization (EUA) by FDA. The limit of detection (LOD) of the assay is 125 Genome Equivalents/mL. A positive result is indicative of the presence of SARS-CoV-2 RNA. ?Clinical correlation with patient history and other diagnostic [...] for repeat patient testing if clinically indicated. Lab Interpretation Normal (test code = 39453-4) [facility] Center[facility] Whole [id number] 00:34:00 Test Item Value Reference Range Interpretation Comments LACTIC ACID (test code = 3.03 mmol/L 4573455652) [facility] CenterL[facility] Whole [id number] 21:59:00 Test Item Value Reference Range Interpretation Comments LACTIC ACID (test code = 2.30 mmol/L 6869708497) [facility]CT [facility] W [id number] 21:22:06CT Abdomen and Pelvis with intravenous contrast. CLINICAL HISTORY: Abdominal pain. Rule out appendicitis. DOSE: Up-to-date CT equipment and radiation dose reduction techniques wereemployed. CTDIvol: 5.43 mGy. DLP: 257 mGy-cm. TECHNIQUE : Contiguous axial imaging from the level of the lung basesthrough the pubic symphysis were performed after the uncomplicatedadministration of Omnipaque contrast material. Coronal and sagittalreconstructions were obtained. Auto mA and/or iterative reconstruction wereused to reduce radiation dose. FINDINGS: Comparison is made with 08/18/2019 study. Lower lungs: Clear.No pleural effusion or pericardial effusion. Probableshort sliding hiatal hernia. Liver, Gallbladderand Spleen: No calcified gallstones. Liver is 12.4 cmand spleen is 7.5 x 2.5 cm in size. Biliary ducts and the pancreatic ductappear of normal size. Peritoneum: ?No free air. Free fluid noted surrounding intestines, spleen,minimal around the liver and in the cul-de-sac.Small lymph nodes are seen in the right lower quadrant of the abdomen. Pancreas and Adrenals: ?Unremarkable pancreas and adrenal glands. Kidneys and Ureters: ?No visible calculi in the renal collecting systems. No hydroureter or hydronephrosis. Vessels: Normal. Retroperitoneum: No abnormal fluid or lymphadenopathy. Bowel: Several ileal loops are dilated up to 3.5 cm with submucosal edema,congestion of the surrounding mesentery and small amount of fluidsurrounding abnormal bowel loops. Some of the bowel loops proximal to theedematous ileum with distended with gas. Appendix is not visualized,however, findings are not suggestive of acute appendicitis. Bladder and Reproductive Organs: S/P hysterectomy. Grossly unremarkableunopacified and incompletely distended urinary bladder. Bones: Mild bilateral hip joint arthritis. No aggressive bone lesions. Nocompression deformity in the lower thoracic or lumbar vertebral bodies. Soft tissues: Unremarkable. CONCLUSION:1. Abnormal findings involving some of the distal ileal loops, with freefluid is seen in the lower abdomen and surrounding spleen. No freeintraperitoneal air. Etiology is unclear given the history of Crohn'sdisease but could be acute flareup of Crohn's disease. Involved loops ofbowel showed poor contrast enhancement of the mucosa without any definiteCT signs of bowel infarction. Possibility of small bowel obstruction cannotbe excluded.2. Appendix is not visualized, however, findings are not suggestive ofacute appendicitis. [facility], Radiant Results Inft User - 07/23/2020 4:23 PM CDTCT Abdomen and Pelvis with intravenous contrast.CLINICAL HISTORY: Abdominal pain. Rule out appendicitis.DOSE: Up-to-date CT equipment and radiation dose reduction techniques wereemployed. CTDIvol: 5.43 mGy. DLP: 257 mGy-cm.TECHNIQUE : Contiguous axial imaging from the level of the lung basesth rough the pubic symphysis were performed after the uncomplicatedadministration of Omnipaque contrastmaterial. Coronal and sagittalreconstructions were obtained. Auto mA and/or iterative reconstructionwereused to reduce radiation dose.FINDINGS: Comparison is made with 08/18/2019 study.Lower lungs: Clear. No pleural effusion or pericardial effusion. Probableshort sliding hiatal hernia.Liver, Gallbladder and Spleen: No calcified gallstones. Liver is 12.4 cmand spleen is 7.5 x 2.5 cm in size. Biliary ducts and the pancreatic ductappear of normal size.Peritoneum: No free air. Free fluid noted surrounding intestines, spleen,minimal around the liver and in the cul-de-sac.Small lymph nodes are seen in the right lower quadrant of the abdomen.Pancreas and Adrenals: Unremarkable pancreas and adrenal glands.Kidneys and Ureters: No visible calculi in the renal collecting systems. No hydroureter or hydronephrosis. Vessels: Normal.Retroperitoneum: No abnormal fluid or lymphadenopathy.Bowel: Several ilealloops are dilated up to 3.5 cm with submucosal edema,congestion of the surrounding mesentery and small amount of fluidsurrounding abnormal bowel loops. Some of the bowel loops proximal to theedematous ileum with distended with gas. Appendix is not visualized,however, findings are not suggestive of acute appendicitis.Bladder and Reproductive Organs: S/P hysterectomy. Grossly unremarkableunopacified and incompletely distended urinary bladder.Bones: Mild bilateral hip joint arthritis. No aggressive bone lesions. Nocompression deformity in the lower thoracic or lumbar vertebral bodies.Soft tissues: Unre markable.CONCLUSION:1. Abnormal findings involving some of the distal ileal loops, with freefluid isseen in the lower abdomen and surrounding spleen. No freeintraperitoneal air. Etiology is unclear given the history of Crohn'sdisease but could be acute flareup of Crohn's disease. Involved loops ofbowel showed poor contrast enhancement of the mucosa without any definiteCT signs of bowel infarction. Possibility of small bowel obstruction cannotbe excluded.2. Appendix is not visualized, however, findings are not suggestive ofacute appendicitis. [facility] (NA, K, CL, CO2, GLUCOSE, BUN, CREATININE, CA)2020-07-23 20:11:00 Test Item Value Reference Range Interpretation Comments NA (test code = 137 mmol/L 135-145 6172941958) K (test code = 3.3 mmol/L 3.5-5 L 7022450190) CL (test code = 97 mmol/L 98-108 L 7271680472) CO2 TOTAL (test code = 25 mmol/L 23-31 9809887414) AGAP (test code = 2-16 5067987114) BUN (test code = 18 mg/dL 7- 0824219082) GLUCOSE (test code = 236 mg/dL 70-110 H 2914645315) CREATININE (test code = 0.94 mg/dL 0.5-1.04 2448348371) CALCIUM (test code = 10.4 mg/dL 8.6-10.6 5724945881) eGFR Calculation mL/min/1.73m2 (Non-) (test code = 6181357023) eGFR Calculation mL/min/1.73m2 () (test code = 6890752241) RAUDEL (test code = RAUDEL) Association of Glomerular Filtration Rate (GFR) and Staging of Kidney Disease* + --+ --+ ------+| GFR (mL/min/1.73 m2) ?| With Kidney Damage ?| ?Without Kidney Damage+ --------+ --------+ +| ?>90 ?| ?Stage one ?| ? Normal ?+ ---+ ---+ -------+| ?60-89 ?| ?Stage two ?| ? Decreased GFR ? + --+ --+ ------+| ?30-59 ?| ?Stage three ?| ? Stage three ? + --+ --+ ------+| ?15-29 ?| ?Stage four ? | ? Stage four ?+ ---+ ---+ -------+| ?<15 (or dialysis) ? ?| ?Stage five ? | ? Stage five ?+ ---+ ---+ -------+ *Each stage assumes the associated GFR level has been in effect for at least three months. ?Stages 1 to 5, with or without kidney disease, indicate chronic kidney disease. Notes: Determination of stages one and two (with eGFR >59mL/min/1.73 m2) requires estimation of kidney damage for at least three months as defined by structural or functional abnormalities of the kidney, manifested by either:Pathological abnormalities or Markers of kidney damage (including abnormalities in the composition of the blood or urine or abnormalities in imaging tests). Lab Interpretation Abnormal (test code = 99413-0) [facility] Center[facility] (ALB, T.PRO, BILI T, BU/BC, ALT, AST, ALK PHOS)2020-07-23 20:11:00 Test Item Value Reference Range Interpretation Comments TOTAL BILI (test code = 7364213812) 1.0 mg/dL 0.1-1.1 BILI UNCON (test code = 8306522720) 1.0 mg/dL 0.1-1.1 BILI CONJ (test code = 7775489021) 0.0 mg/dL 0-0.3 T PROTEIN (test code = 8104946542) 8.9 g/dL 6.3-8.2 H ALBUMIN (test code = 8919794427) 4.7 g/dL 3.5-5 ALK PHOS (test code = 9192057046) 77 U/L 34-122 ALTv (test code = 1742-6) 19 U/L 5-35 AST(SGOT) (test code = 4548332284) 24 U/L 13-40 Lab Interpretation (test code = Abnormal 89904-3) [facility] CenterLipase [id number] 20:11:00 Test Item Value Reference Range Interpretation Comments LIPASE (test code = 6781440584) 26 U/L 0-220 Lab Interpretation (test code = Normal 26979-1) [facility] CenterCB with [id number] 19:48:00 Test Item Value Reference Range Interpretation Comments WBC (test code = See_Comment H [Automated 6690-2) message] The system which generated this result transmit carl reference range : 4.30 - 11.10 10*3/?L. The reference range was not used to interpret this result as normal/abnormal . RBC (test code = See_Comment H [Automated 329-8) message] The system which generated this result transmit carl reference range : 3.93 - 5.25 10*6/?L. The reference range was not used to interpret this result as normal/abnormal . HGB (test code = 17.1 g/dL 11.6-15 H 718-7) HCT (test code = 49.7 % 35.7-45.2 H 4544-3) MCV (test code = 93.1 fL 80.6-95.5 787-2) MCH (test code = 32.0 pg 25.9-32.8 785-6) MCHC (test code = 34.4 g/dL 31.6-35.1 786-4) RDW-SD (test code = 39.7 fL 39-49.9 55598-9) RDW-CV (test code = 11.5 % 12-15.5 L 788-0) PLT (test code = See_Comment [Automated 777-3) message] The system which generated this result transmit carl reference range : 166 - 358 10*3/ ?L. The reference range was not u sed to interpret th is result as normal/abnormal . MPV (test code = 10.4 fL 9.5-12.9 74306-6) NRBC/100 WBC (test See_Comment [Automat ed code = 4173722985) message] The system which generated this result transmit carl reference range : 0.0 - 10.0 /100 WBCs. The reference range was not used to interpret this result as normal/abnormal . NRBC x10^3 (test code <0.01 See_Comment [Auto mated = 8615576208) message] The system which generated this result transmit carl reference range : 10*3/?L. The reference range was not used to interpret this result as normal/abnormal . GRAN MAT (NEUT) % 90.3 % (test code = 770-8) IMM GRAN % (test code 0.50 % = 3578624584) LYMPH % (test code = 5.4 % 736-9) MONO % (test code = 3.7 % 5905-5) EOS % (test code = 0.0 % 713-8) BASO % (test code = 0.1 % 706-2) GRAN MAT x10^3(ANC) 12.67 10*3/uL 1.88-7.09 H (test code = 7729299488) IMM GRAN x10^3 (test 0.07 10*3/uL 0-0.06 H code = 5317270138) LYMPH x10^3 (test code 0.76 10*3/uL 1.32-3.29 L = 731-0) MONO x10^3 (test code 0.52 10*3/uL 0.33-0.92 = 742-7) EOS x10^3 (test code = <0.03 0.03-0.39 L 711-2) BASO x10^3 (test code <0.03 0.01-0.07 = 704-7) Lab Interpretation Abnormal (test code = 83403-0) [facility] CenterUrinalysis2020-09-08 19:37:00 Test Item Value Reference Range Interpretation Comments APPEARANCE (test code = Hazy Clear A 2055856712) COLOR (test code = Kathleen Yellow A 4381966410) PH (test code = 4.8-8.0 9748651868) SP GRAVITY (test code = 1.003-1.030 H 7633018961) GLU U QUAL (test code = 50 mg/dL Normal A 4399718963) BLOOD (test code = Negative Negative 6278456583) KETONES (test code = 80 mg/dL Negative A 5655030698) PROTEIN (test code = 100 mg/dL Negative A 2887-8) UROBILIN (test code = Normal Normal 1046817742) BILIRUBIN (test code = Negative Negative 4321133617) NITRITE (test code = Negative Negative 5091271003) LEUK CHELY (test code = Negative Negative 4180277627) RBC/HPF (test code = See_Comment [Autom ated message] 8998360159) The system [employer] generated this result transmit carl reference range : 0 - 3 HPF. The refe rence range was not u sed to interpret th is result as normal/abnormal . WBC/HPF (test code = See_Comment [Autom ated message] 2110702877) The system [employer] generated this result transmit carl reference range : 0 - 5 HPF. The refe rence range was not u sed to interpret th is result as normal/abnormal . BACTERIA (test code = Few Negative A 4999064915) MUCOUS (test code = Marked Negative LPF A 0122400809) SQ EPITH (test code = HPF 9170502946) Lab Interpretation (test Abnormal code = 24390-9) [facility] CenterCT [facility] W [id number] 18:53:08CT Abdomen and Pelvis with intravenous contrast. CLINICAL HISTORY: Acute generalized abdominal pain with nausea. TECHNIQUE: Multidetector helical CT acquisition were obtained withintravenous injection Omnipaque 350 nonionic contrast medium. Sagittal andcoronal reformations were generated. FINDINGS:?Com parison is made with 01/04/2018 CT studies. Lower lungs: Clear. No pleural effusion or pericardial effusion. Liver, Gallbladder and Spleen: 2.3 cm area of decreased attenuation notedin the left lobe of the liver near falciform ligament, unchanged sinceDecember 2017 study. No other liver lesions. No lesions in the spleen. Nocalcified gallstones. Biliary ducts and the pancreatic duct appeared to beof normal size. Liver measures approximately 15.5 cm in length and spleen is 9 x 3.5 cm. Peritoneum:?No free air or free fluid. No lymphadenopathy. Pancreas and Adrenals:?Unremarkable pancreas and adrenal glands. Kidneys and Ureters:?No visible calculi in the renal collecting systems. No hydroureter or hydronephrosis. Vessels: Normal. Retroperitoneum: No abnormal fluid or lymphadenopathy. Bowel:?No acute findings. Normal appendix is visualized. Small bowel gaspattern is unremarkable. Bladder and Reproductive Organs:?S/P hysterectomy. Normal urinary bladder. Bones:?Bilateral hip joint arthritis. No aggressive bone lesions. Nocompression deformity in the lower thoracic or lumbar vertebral bodies. Soft tissues: Unremarkable. CONCLUSION: No acute intra- abdominal or intrapelvic pathology detected. [facility], Radiant Results Inft User - 06/15/2019 1:53 PM CDTCT Abdomen and Pelvis with intravenous contrast.C LINICAL HISTORY: Acute generalized abdominal pain with nausea.TECHNIQUE: Multidetector helical CT acquisition were obtained withintravenous injection Omnipaque 350 nonionic contrast medium. Sagittal andcoronal reformations were generated.FINDINGS: Comparison is made with 01/04/2018 CT studies.Lower lungs: Clear. No pleural effusion or pericardial effusion.Liver, Gallbladder and Spleen: 2.3 cm area ofdecreased attenuation notedin the left lobe of the liver near falciform ligament, unchanged sinceDecember 2017 study. No other liver lesions. No lesions in the spleen. Nocalcified gallstones. Biliary ducts and the pancreatic duct appeared to beof normal size.Liver measures approximately 15.5 cm in length and spleen is 9 x 3.5 cm.Peritoneum: No free air or free fluid. No lymphadenopathy.Pancreas and Adrenals: Unremarkable pancreas and adrenal glands.Kidneys and Ureters: No visible calculi in the renal collecting systems. No hydroureter or hydronephrosis. Vessels: Normal.Retroperitoneum: No abnormal fluid or lymphadenopathy.Bowel: No acute findings. Normal appendix is visualized. Small bowel gaspattern is unremarkable.Bladder and Reproductive Organs: S/P hysterectomy. Normal urinary bladder.Bones: Bilateral hip joint arthritis. No aggressive bone lesions. Nocompression deformity in the lower thoracic or lumbar vertebral bodies.Soft tissues: Unremarkable.CONCLUSION: No acute intra-abdominalor intrapelvic pathology detected.[facility] (NA, K, CL, CO2, GLUCOSE, BUN, CREATININE, CA)2019-06-15 18:17:00 Test Item Value Reference Range Interpretation Comments NA (test code = 140 mmol/L 135-145 4007603694) K (test code = 3.5 mmol/L 3.5-5 3530671806) CL (test code = 105 mmol/L 98-108 7741001445) CO2 TOTAL (test code = 25 mmol/L 23-31 1488325693) AGAP (test code = 2-16 2428809153) BUN (test code = 10 mg/dL 7-23 5130374782) GLUCOSE (test code = 162 mg/dL 70-110 H 7763808079) CREATININE (test code = 0.81 mg/dL 0.5-1.04 4617897294) CALCIUM (test code = 8.7 mg/dL 8.6-10.6 3371446232) eGFR Calculation mL/min/1.73m2 (Non-) (test code = 0584697082) eGFR Calculation mL/min/1.73m2 () (test code = 1036909236) RAUDEL (test code = RAUDEL) Association of Glomerular Filtration Rate (GFR) and Staging of Kidney Disease*+ + + +| GFR (mL/min/1.73 m2)?| With Kidney Damage?|?Without Kidney Damage+ --------+ --------+ +|?>90?|?S tage one?|? Normal?+ ---------+ ---------+ +|?60-89? |?Stage two?|? Decreased GFR? + --+ --+ ------+|?30-59?|?Stage three?|? Stage three? + --+ --+ ------+|?15-29?|?Stage four? |? Stage four?+ -------+ -------+ +|?<15 (or dialysis)?|?Stage five? |? Stage five?+ -------+ -------+ +*Each stage assumes the associated GFR level has been in effect for at least three months.?Stages 1 to 5, with or without kidney disease, indicate chronic kidney disease.Notes: Determination of stages one and two (with eGFR >59mL/min/1.73 m2) requires estimation of kidney damage for at least three months as defined by structural or functional abnormalities of the kidney, manifested by either:Pathological abnormalities or Markers of kidney damage (including abnormalities in the composition of the blood or urine or abnormalities in imaging tests). Lab Interpretation Abnormal (test code = 34669-9) [facility] (ALB, T.PRO, BILI T, BU/BC, ALT, AST, ALK PHOS)2019-06-15 18:17:00 Test Item Value Reference Range Interpretation Comments TOTAL BILI (test code = 5952556655) 0.7 mg/dL 0.1-1.1 BILI UNCON (test code = 1271871443) 0.6 mg/dL 0.1-1.1 BILI CONJ (test code = 2350535322) 0.0 mg/dL 0-0.3 T PROTEIN (test code = 7292940345) 7.7 g/dL 6.3-8.2 ALBUMIN (test code = 1508252916) 4.2 g/dL 3.5-5 ALK PHOS (test code = 2258672164) 59 U/L 34-122 ALT(SGPT) (test code = 7238887781) 16 U/L 9-51 AST(SGOT) (test code = 6860657296) 20 U/L 13-40 Lab Interpretation (test code = Normal 77355-0) [facility] CenterLipase [id number] 18:17:00 Test Item Value Reference Range Interpretation Comments LIPASE (test code = 3282013374) 48 U/L 0-220 Lab Interpretation (test code = Normal 57613-4) [facility] CenterUrinalysis2019-08-01 18:06:00 Test Item Value Reference Range Interpretation Comments APPEARANCE (test code Slightly Hazy Clear A = 0976135223) COLOR (test code = Yellow Yellow 8824299598) PH (test code = 4.8-8.0 1438627930) SP GRAVITY (test code >=1.030 1.003-1.030 = 0773927844) GLU U QUAL (test code Negative Negative = 6454650729) BLOOD (test code = Negative Negative 7587621369) KETONES (test code = Negative Negative 9233014523) PROTEIN (test code = Negative Negative 2887-8) UROBILIN (test code = 0.2 mg/dL See_Comment [Auto mated 8410013583) message] The system which generated this result transmit carl reference range : 0-1.0 mg/dL. Th e reference range was not used to interpret this result as normal/abnormal . BILIRUBIN (test code = Negative Negative 8714631159) NITRITE (test code = Negative Negative 5420819797) LEUK CHELY (test code Negative Negative = 7328763692) RBC/HPF (test code = See_Comment [Autom ated 8846813042) message] The system which generated this result transmit carl reference range : 0 - 3 HPF. The reference range was not used to interpret this result as normal/abnormal . WBC/HPF (test code = See_Comment [Autom ated 4635114974) message] The system which generated this result transmit carl reference range : 0 - 5 HPF. The reference range was not used to interpret this result as normal/abnormal . BACTERIA (test code = Moderate Negative A 6857860783) MUCOUS (test code = Moderate Negative LPF A 5339549848) SQ EPITH (test code = HPF 7559042044) CA OXALATE (test code See_Comment H [Auto mated = 9089252721) message] The system which generated this result transmit carl reference range : <=1 HPF. The reference range was not used to interpret this result as normal/abnormal . Lab Interpretation Abnormal (test code = 40243-9) [facility] CenterLactic Acid Whole [id number] 17:57:00 Test Item Value Reference Range Interpretation Comments LACTIC ACID (test code = 1.94 mmol/L 0.5-2.2 5739802135) Lab Interpretation (test code = Normal 30260-7) [facility] CenterCB WITH [id number] 17:56:00 Test Item Value Reference Range Interpretation Comments WBC (test code = See_Comment [Automated 6690-2) message] The sy stem which generated this result transmitted reference range : 4.30 - 11.10 10*3/?L. The reference range was not used to interpret this result as normal/abnormal . RBC (test code = See_Comment [Automated 789-8) message] The sy stem which generated this result transmitted reference range : 3.93 - 5.25 10*6/?L. The reference range was not used to interpret this result as normal/abnormal . HGB (test code = 13.4 g/dL 11.6-15 718-7) HCT (test code = 40.4 % 35.7-45.2 4544-3) MCV (test code = 96.2 fL 80.6-95.5 H 787-2) MCH (test code = 31.9 pg 25.9-32.8 785-6) MCHC (test code = 33.2 g/dL 31.6-35.1 786-4) RDW-SD (test code = 41.2 fL 39-49.9 20246-1) RDW-CV (test code = 11.7 % 12-15.5 L 788-0) PLT (test code = See_Comment [Automated 777-3) message] The sy stem which generated this result transmitted reference range : 166 - 358 10*3/ ?L. The reference r madelin was not used to interpret this result as normal/abnormal . MPV (test code = 10.0 fL 9.5-12.9 84589-9) NRBC/100 WBC (test See_Comment [Automat ed code = [id number]) message] The system which generated this result transmitted reference range : 0.0 - 10.0 /100 WBCs. The refer ence range was not u sed to interpret th is result as normal/abnormal . NRBC x10^3 (test code <0.01 See_Comment [Auto mated = [id number]) message] The s ystem which generated this result transmitted reference range : 10*3/?L. The reference range was not used to interpret this result as normal/abnormal . GRAN MAT (NEUT) % 72.9 % (test code = 770-8) IMM GRAN % (test code 0.10 % = 5122853212) LYMPH % (test code = 21.6 % 736-9) MONO % (test code = 4.3 % 5905-5) EOS % (test code = 0.7 % 713-8) BASO % (test code = 0.4 % 706-2) GRAN MAT x10^3(ANC) 4.88 10*3/uL 1.88-7.09 (test code = 3002946581) IMM GRAN x10^3 (test <0.03 0-0.06 code = 2470002493) LYMPH x10^3 (test code 1.45 10*3/uL 1.32-3.29 = 731-0) MONO x10^3 (test code 0.29 10*3/uL 0.33-0.92 L = 742-7) EOS x10^3 (test code = 0.05 10*3/uL 0.03-0.39 711-2) BASO x10^3 (test code 0.03 10*3/uL 0.01-0.07 = 704-7) Lab Interpretation Abnormal (test code = 02999-9) [id number] 17:24:00 Test Item Value Reference Range Interpretation Comments POCT PREG (test code = 1605) negative On board controls acceptable with present C Line (test code = 3574) POCT PREG LOT # (test code = 3575) [id number] POCT PREG TEST DATE (test 11/14/20 code = 3576) Lab Interpretation (test code = Normal 35569-2) [facility]"
[2021-10-31] MEDS ORDERED: METHYLPREDNISOLONE 125 MG INJ ONE (13:11)
[2021-10-31] MEDS ORDERED: PROMETHAZINE INJ 25 MG/ML AMP ONE ×2 (13:11→15:08)
[2021-10-31] MEDS ORDERED: HYDROMORPHONE HCL 1 MG/ML INJ ONE ×2 (13:12→15:08)
[2021-10-31] MEDS ORDERED: PANTOPRAZOLE 40 MG INJ ONE (13:12)
[2021-10-31 13:45] LABS: Absolute Lymphocytes (CBC) 1.2 K/uL (0.7-4.9); Basophils % 0.7 % (0-1.3); Hematocrit 44.4 % (36.0-45.0); Lymphocytes % 14.2 % (15.3-44.8); RBC Red Blood Cell Count 4.69 M/uL (3.86-4.86)
[2021-10-31 13:57] LABS: Albumin 4.2 g/dL (3.4-5.0); Bilirubin Direct 0.4 mg/dL (0-0.2); Bilirubin Total 1.6 mg/dL (0.2-1.0); Potassium 3.7 mmol/L (3.5-5.1); Protein, Total 9.1 g/dL (6.4-8.2)
[2021-10-31] MEDS ORDERED: NA CHLORIDE 0.9% 1,000 ML ONE (13:58)
[2021-10-31] MEDS ORDERED: DIPHENHYDRAMINE 50 MG/ML VIAL ONE (14:01)
--- NOTE | 2021-10-31 14:47 | RAD REPORT ---
EXAM DESCRIPTION: CTAbdomen Pelvis W Contrast - 10/31/2021 2:37 pm CLINICAL HISTORY: ABD PAIN COMPARISON: Abdomen Pelvis W Contrast dated 08/02/2021; Abdomen Pelvis W Contrast dated 0; Abdomen Pelvis W Contrast dated 06/15/2019; Abdomen Pelvis W Contrast dated 03/24/2019 TECHNIQUE: CT of the abdomen and pelvis was performed. All CT scans are performed using dose optimization technique as appropriate and may include automated exposure control or mA/KV adjustment according to patient size. FINDINGS: Lower chest: No acute abnormality. Liver: No acute abnormality or suspicious lesions. Biliary: No biliary ductal dilatation. Stomach: No significant focal abnormality. Duodenum: No significant focal abnormality. Pancreas: No significant abnormality. Spleen: No significant abnormality. Adrenal: No suspicious lesions. Kidney/ureter: No hydronephrosis. No renal calculi. Retroperitoneum: No retroperitoneal adenopathy. Vascular: No aneurysm. Bowel: No significant focal abnormality. Appendectomy. Peritoneum: Small volume of pelvic free fluid. Bladder: Grossly unremarkable. Reproductive: No adnexal masses. Bones: No acute fracture. Other: n/a IMPRESSION: No acute intra-abdominal or pelvic finding.
--- NOTE | 2021-10-31 14:52 | ER ---
Nurse's Notes [facility] Name: Jessica Stearns Age: 46 yrs Sex: Female : 1975 Arrival Date: 10/31/2021 Time: 12:04 Bed 13 Private MD: Diagnosis: Crohn's disease, unspecified, without complications Presentation: 10/31 12:15 Chief complaint: Patient states: LOWER ABDOMINAL PAIN AND DIARRHEA xWEEKS. Coronavirus bp screen: At this time, the client does not indicate any symptoms associated with coronavirus-19. Ebola Screen: No symptoms or risks identified at this time. Initial Sepsis Screen: Does the patient meet any 2 criteria? No. Patient's initial sepsis screen is negative. Does the patient have a suspected source of infection? No. Patient's initial sepsis screen is negative. Risk Assessment: Do you want to hurt yourself or someone else? Patient reports no desire to harm self or others. Onset of symptoms is unknown. 12:15 Method Of Arrival: Wheelchair bp 12:15 Acuity: EVELIA 3 bp Triage Assessment: 12:15 General: Appears distressed, uncomfortable, Behavior is cooperative, appropriate for bp age, anxious. 12:15 Pain: Complains of pain in abdomen. EENT: No deficits noted. Neuro: No deficits noted. bp Cardiovascular: No deficits noted. Respiratory: No deficits noted. GI: Reports lower abdominal pain, diarrhea, nausea. : No signs and/or symptoms were reported regarding the genitourinary system. Derm: No deficits noted. Musculoskeletal: No deficits noted. Historical: - Allergies: 13:00 Bentyl; bp 13:00 Butalbital Compound; bp 13:00 Demerol; bp 13:00 Fentanyl; bp 13:00 Ketorolac; bp 13:00 Morphine; bp 13:00 Reglan; bp 13:00 Sulfa (Sulfonamide Antibiotics); bp 13:00 Talwin; bp 13:00 Toradol; bp 13:00 Zofran; bp - Home Meds: 13:00 Phenergan 25 mg Oral twice a day [Active]; Protonix 40 mg Oral TbEC 1 tab once daily bp [Active]; metoprolol tartrate 25 mg Oral tab 1 tab 2 times per day [Active]; - PMHx: 13:00 Crohn's; gastritis; ibs; bp - PSHx: 13:00 Colostomy and reversal; bp - Immunization history:: Adult Immunizations unknown. - Social history:: Smoking status: unknown. Screenin:15 Abuse screen: Denies threats or abuse. Denies injuries from another. Nutritional bp screening: No deficits noted. Tuberculosis screening: No symptoms or risk factors identified. Fall Risk None identified. Assessment: 12:15 General: SEE TRIAGE NOTE. bp 13:45 Reassessment: No changes from previously documented assessment. Patient and/or family bp updated on plan of care and expected duration. Pain level reassessed. MIDLINE PLACED. CT PENDING. 15:34 Reassessment: PT D/C HOME VIA W/C WITH FAMILY, DX WITH CROHN'S. bp Vital Signs: 12:21 BP 149 / 93; Pulse 88; Resp 18; Temp 98.2(O); Pulse Ox 100% on R/A; Weight 56.7 kg; dh3 Height 5 ft. 7 in. (170.18 cm); Pain 9/10; 13:45 BP 97 / 75; Pulse 100; Resp 17; Pulse Ox 100% ; bp 14:30 BP 114 / 88; Pulse 91; Resp 16; Pulse Ox 100% ; bp 15:30 BP 112 / 73; Pulse 78; Resp 18; Pulse Ox 100% ; bp 12:21 Body Mass Index 19.58 (56.70 kg, 170.18 cm) 3 ED Course: 12:04 Patient arrived in ED. mr 12:15 Arm band placed on. bp 12:15 Patient has correct armband on for positive identification. Bed in low position. Call bp light in reach. Side rails up X2. 12:18 Melissa David FNP-C is PHCP. kb 12:18 Dc Steve MD is Attending Physician. kb 12:45 Missed attempt(s): 22 gauge in left upper arm. Bleeding controlled, band aid applied, dh3 catheter tip intact. 12:58 Vinicio King, ZARA is Primary Nurse. bp 13:00 Triage completed. bp 13:05 Missed attempt(s): 22 gauge in right upper arm. Bleeding controlled, band aid applied, dh3 catheter tip intact. 13:30 Accessed peripheral vein via ultrasound, utilizing dynamic ultrasound technique using bp 20G Nexia IV catheter ,sterile technique, per hospital protocol. Clean \T\ dry. Dressing intact. Good blood return. Flushes easily. 14:37 CT Abd/Pelvis - IV Contrast Only In Process Unspecified. EDMS 15:36 No provider procedures requiring assistance completed. IV discontinued, intact, bp bleeding controlled, No redness/swelling at site. Pressure dressing applied. Administered Medications: 13:30 Drug: Phenergan (promethazine) 12.5 mg Route: IVP; Site: right upper arm; bp 14:04 Follow up: Response: No adverse reaction; Nausea is decreased bp 13:30 Drug: Dilaudid (HYDROmorphone) 1 mg Route: IVP; Infused Over: 30 mins; Site: right bp upper arm; 14:05 Follow up: Response: No adverse reaction; Pain is decreased bp 13:30 Drug: ProTONIX (pantoprazole) 40 mg Route: IVP; Site: right upper arm; bp 14:05 Follow up: Response: No adverse reaction bp 13:30 Drug: SOLU-Medrol (methylPrednisoLONE) 125 mg Route: IVP; Site: right upper arm; bp 14:05 Follow up: Response: No adverse reaction bp 13:35 Drug: NS 0.9% 1000 ml Route: IV; Rate: 1000 ml; Site: right upper arm; bp 15:33 Follow up: IV Status: Completed infusion; IV Intake: 1000ml bp 14:00 Drug: diphenhydrAMINE 12.5 mg Route: IVP; Site: right upper arm; bp 14:05 Follow up: Response: Marked relief of symptoms bp 15:00 Drug: Dilaudid (HYDROmorphone) 1 mg Route: IVP; Site: right upper arm; bp 15:33 Follow up: Response: No adverse reaction; Pain is decreased bp 15:00 Drug: Phenergan (promethazine) 12.5 mg Route: IVP; Site: right upper arm; bp 15:34 Follow up: Response: No adverse reaction bp Intake: 15:33 IV: 1000ml; Total: 1000ml. bp Outcome: 14:51 Discharge ordered by . kb 15:36 Discharged to home via wheelchair, with family. bp 15:36 Condition: stable 15:36 Discharge instructions given to patient, Instructed on discharge instructions, follow up and referral plans. medication usage, Demonstrated understanding of instructions, follow-up care, medications, Prescriptions given X 4. 15:55 Patient left the ED. bp Signatures: Dispatcher [employer] EDMS Melissa David, COLEMAN DIRECTOR OF WOMEN'S SERVICES-Rachel BaueraDeepika mr Varghese, Miri dh3 Vinicio King, RN RN bp Corrections: (The following items were deleted from the chart) 13:10 12:45 Missed attempt(s): 22 gauge in left antecubital area. Bleeding controlled, band dh3 aid applied, catheter tip intact. dh3
--- NOTE | 2021-10-31 14:52 | EDPHYS ---
Physician Documentation [facility] Name: Jessica Stearns Age: 46 yrs Sex: Female : 1975 Arrival Date: 10/31/2021 Time: 12:04 Bed 13 Private MD: ED Physician Dc Steve HPI: 10/31 15:24 This 46 yrs old Black Female presents to ER via Wheelchair with complaints of Abdominal kb Pain, Vomiting. 15:24 The patient presents with abdominal pain that is diffuse. Onset: The symptoms/episode kb began/occurred today. The symptoms do not radiate. Associated signs and symptoms: Pertinent positives: nausea and vomiting, Pertinent negatives: diarrhea, fever. The symptoms are described as constant. Modifying factors: The symptoms are alleviated by nothing, the symptoms are aggravated by nothing. Severity of pain: At its worst the pain was mild moderate in the emergency department the pain is unchanged. The patient has not experienced similar symptoms in the past. The patient has not recently seen a physician. Pt reports crohn's flare up. Reports abd pain, nausea and vomiting. Historical: - Allergies: 13:00 Bentyl; bp 13:00 Butalbital Compound; bp 13:00 Demerol; bp 13:00 Fentanyl; bp 13:00 Ketorolac; bp 13:00 Morphine; bp 13:00 Reglan; bp 13:00 Sulfa (Sulfonamide Antibiotics); bp 13:00 Talwin; bp 13:00 Toradol; bp 13:00 Zofran; bp - Home Meds: 13:00 Phenergan 25 mg Oral twice a day [Active]; Protonix 40 mg Oral TbEC 1 tab once daily bp [Active]; metoprolol tartrate 25 mg Oral tab 1 tab 2 times per day [Active]; - PMHx: 13:00 Crohn's; gastritis; ibs; bp - PSHx: 13:00 Colostomy and reversal; bp - Immunization history:: Adult Immunizations unknown. - Social history:: Smoking status: unknown. ROS: 15:23 Constitutional: Negative for fever, chills, and weight loss. kb 15:23 Abdomen/GI: Positive for abdominal pain, nausea and vomiting, Negative for diarrhea, constipation. 15:23 All other systems are negative. Exam: 15:23 Constitutional: This is a well developed, well nourished patient who is awake, alert, kb and in no acute distress. Head/Face: Normocephalic, atraumatic. ENT: Moist Mucous membranes Respiratory: Respirations even and unlabored. No increased work of breathing. Talking in full sentences Skin: Warm, dry with normal turgor. Normal color. MS/ Extremity: Pulses equal, no cyanosis. Neurovascular intact. Full, normal range of motion. Neuro: Awake and alert, GCS 15, oriented to person, place, time, and situation. Moves all extremities. Normal gait. Psych: Awake, alert, with orientation to person, place and time. Behavior, mood, and affect are within normal limits. 15:23 Abdomen/GI: Inspection: abdomen appears normal, Bowel sounds: normal, Palpation: soft, in all quadrants, mild abdominal tenderness, in all quadrants. Vital Signs: 12:21 BP 149 / 93; Pulse 88; Resp 18; Temp 98.2(O); Pulse Ox 100% on R/A; Weight 56.7 kg; dh3 Height 5 ft. 7 in. (170.18 cm); Pain 9/10; 13:45 BP 97 / 75; Pulse 100; Resp 17; Pulse Ox 100% ; bp 14:30 BP 114 / 88; Pulse 91; Resp 16; Pulse Ox 100% ; bp 15:30 BP 112 / 73; Pulse 78; Resp 18; Pulse Ox 100% ; bp 12:21 Body Mass Index 19.58 (56.70 kg, 170.18 cm) dh3 MDM: 12:18 Patient medically screened. kb 14:51 Data reviewed: vital signs, nurses notes. Data interpreted: Pulse oximetry: on room air kb is 100 %. Interpretation: normal. Counseling: I had a detailed discussion with the patient and/or guardian regarding: the historical points, exam findings, and any diagnostic results supporting the discharge/admit diagnosis, lab results, radiology results, the need for outpatient follow up, a venue coordinator, to return to the emergency department if symptoms worsen or persist or if there are any questions or concerns that arise at home. 10/31 12:21 Order name: Basic Metabolic Panel; Complete Time: 14:14 kb 10/31 12:21 Order name: CBC with Diff; Complete Time: 14:14 kb 10/31 12:21 Order name: Hepatic Function; Complete Time: 14:14 kb 10/31 12:21 Order name: Lipase; Complete Time: 14:14 kb 10/31 13:33 Order name: CT Abd/Pelvis - IV Contrast Only; Complete Time: 14:48 kb 10/31 12:21 Order name: IV Saline Lock; Complete Time: 13:35 kb 10/31 12:21 Order name: Labs collected and sent; Complete Time: 13:35 kb Administered Medications: 13:30 Drug: Phenergan (promethazine) 12.5 mg Route: IVP; Site: right upper arm; bp 14:04 Follow up: Response: No adverse reaction; Nausea is decreased bp 13:30 Drug: Dilaudid (HYDROmorphone) 1 mg Route: IVP; Infused Over: 30 mins; Site: right bp upper arm; 14:05 Follow up: Response: No adverse reaction; Pain is decreased bp 13:30 Drug: ProTONIX (pantoprazole) 40 mg Route: IVP; Site: right upper arm; bp 14:05 Follow up: Response: No adverse reaction bp 13:30 Drug: SOLU-Medrol (methylPrednisoLONE) 125 mg Route: IVP; Site: right upper arm; bp 14:05 Follow up: Response: No adverse reaction bp 13:35 Drug: NS 0.9% 1000 ml Route: IV; Rate: 1000 ml; Site: right upper arm; bp 15:33 Follow up: IV Status: Completed infusion; IV Intake: 1000ml bp 14:00 Drug: diphenhydrAMINE 12.5 mg Route: IVP; Site: right upper arm; bp 14:05 Follow up: Response: Marked relief of symptoms bp 15:00 Drug: Dilaudid (HYDROmorphone) 1 mg Route: IVP; Site: right upper arm; bp 15:33 Follow up: Response: No adverse reaction; Pain is decreased bp 15:00 Drug: Phenergan (promethazine) 12.5 mg Route: IVP; Site: right upper arm; bp 15:34 Follow up: Response: No adverse reaction bp Disposition: 17:00 Co-signature as Attending Physician, Dc Steve MD I agree with the assessment and kdr plan of care. Disposition Summary: 10/31/21 14:51 Discharge Ordered Location: Home kb Condition: Stable kb Diagnosis - Crohn's disease, unspecified, without complications kb Followup: kb - With: Emergency Department - When: As needed - Reason: Worsening of condition Followup: kb - With: Private Physician - When: 2 - 3 days - Reason: Recheck today's complaints, Continuance of care, Re-evaluation by your physician Discharge Instructions: - Discharge Summary Sheet kb - Crohn's Disease kb Forms: - Medication Reconciliation Form kb - Thank You Letter kb - Antibiotic Education kb - Prescription Opioid Use kb - Work release form eb Prescriptions: - Cipro 500 mg Oral Tablet - take 1 tablet by ORAL route every 12 hours for 10 days; 20 tablet; Refills: 0, kb Product Selection Permitted - Flagyl 500 mg Oral Tablet - take 1 tablet by ORAL route every 8 hours for 10 days; 30 tablet; Refills: 0, kb Product Selection Permitted - Prednisone 20 mg Oral Tablet - take 1 tablet by ORAL route once daily for 5 days; 5 tablet; Refills: 0, kb Product Selection Permitted - promethazine 25 mg Oral Tablet - take 1 tablet by ORAL route every 8 hours As needed; 20 tablet; Refills: 0, kb Product Selection Permitted Signatures: Dispatcher [employer] Melissa Bird, CARDING MACHINE OPERATOR-C CARDING MACHINE OPERATOR-Ckb Dc Steve MD MD kdr Peltier, Brian, RN RN bp
[2021-10-31 16:02] VITALS: TEMP 98.2; O2SAT 100
[2021-10-31 16:07] VITALS: BP 112/73
== END 2021-10-31 15:55 | disposition home or self-care (01) ==
LOC: ER 12:02
DX: K50.90 Crohn's disease, unspecified, without complications (principal); K29.70 Gastritis, unspecified, without bleeding
CPT/HCPCS: 36415; 74177; 80048; 80076; 83690; 85025; 96361; 96374; 96375; 99284; C9113; J1170; J1200; J2550; J2930; J7030; Q9967

== ENCOUNTER 2021-11-22 13:18 | Emergency (ER) | payer SELFPAY ==
--- OUTSIDE RECORDS SUMMARY | 2021-11-22 13:33 | XMS REPORT | Continuity of Care Document ---
:1975 Author Organization [facility] t Address [address] [place] [address] Care Team Providers Name Role Phone Pcp, Does Not Have A Primary Care Physician KALEE Attending Clinician Unavailable Doctor Unassigned, Name Attending Clinician Unavailable IBRAHIMA KAPADIA Attending Clinician Unavailable Nina Villanueva Attending Clinician Unavailable Alfredo EMBEDDED SOFTWARE ARCHITECT, W Attending Clinician Unavailable Gavin MONTANA Attending Clinician Unavailable Kalee FOREMAN Attending Clinician James RN, E Attending Clinician Gavin Vanessa Attending Clinician Nelson Attending Clinician Only, Test Attending Clinician Unavailable Tigist Chakraborty DO Attending Clinician Delta OBANDO Attending Clinician Ted FOREMAN Attending Clinician Alejandro FOREMAN Attending Clinician Alexander FOREMAN, S Attending Clinician Nirmala MANSFIELDP, R Attending Clinician Raj RN, A Attending Clinician Unavailable Person Attending Clinician James ZUÑIGA, M Attending Clinician Naun Canela MD Attending Clinician Duane FOREMAN, Tigist Attending Clinician NAUN CANELA Attending Clinician Unavailable Roseline MANSFIELDP, F Attending Clinician KALEE Admitting Clinician Unavailable Physician, Primary or Family Admitting Clinician Unavailabl roldan Clark MD Admitting Clinician Ted FOREMAN Admitting Clinician Tigist Zepeda MD Admitting Clinician Payers Payer Name Policy Type Policy Number Effective Date Expiration Date [facility] MEDICAID SSI PENDING 2020 PENDING 00:00:00 Problems Condition Condition Condition Status Onset Resolution Last Treating Co mments Source Name Details Category Date Date Treatment Clinician Date E46 E46 Disease Active 2019-11 Univers Unspecifie Unspecifie 2-11 it y of d severe d severe 00:00: [place] protein-ca protein-ca 00 Me dical laly laly Branch malnutriti malnutriti on on Wound Wound Disease Active 2019-11 Univers dehiscence dehiscence 2-10 it y of 00:00: [address] Branch Elective Elective Disease Active 2019-11 Unive rs surgery surgery 12-14 ity of 00:00: [place] [facility] Branch Ileostomy Ileostomy Disease Active 2019-11 Overview: Univers care care 1-13 Formattin ity of 00:00: g of this [place] note Medical might be Branch different from the original. Added automatic ally from request for surgery [id number] Acute Acute Disease Active 2019-11 Univers renal renal 1-11 ity of failure failure 00:00: [address] Branch Renal Renal Disease Active 2020 Univers failure failure 1-11 ity of 00:00: [place] [facility] Branch E44.0 E44.0 Disease Active 2019-11 Univers Moderate Moderate 1-11 ity of protein protein 00:00: [place] calorie calorie 00 Medical malnutriti malnutriti Br anch on on JULIAN (acute JULIAN (acute Disease Active 2019-11 U nivers kidney kidney 0-30 ity of injury) injury) 00:00: [place] 00 Medical Branch Abdominal Abdominal Disease Active 2019-11 Uni vers pain pain 0-21 ity of 00:00: [place] [facility] Abdominal Abdominal Disease Active 2019-11 Overview: Univers pain, pain, 0-20 Formattin ity of generalize generalize 00:00: g of this [place] d d 00 note Medical might be Branch different from the original. Added automatic ally from request for surgery [id number] SBO (small SBO (small Disease Active U nivers bowel bowel 07-24 ity of obstructio obstructio 00:00: [place] n) 00 Medical Branch Crohn's Crohn's Disease Active Overview: Univ ers disease of disease of 07-23 Formattin ity of colon with colon with 00:00: g of this [place] complicati complicati 00 note Me dical on on might be Branch different from the original. Added automatic ally from request for surgery [id number] Sinus Sinus Disease Active 2018-11 Univers tachycardi tachycardi 0-09 it y of a a 00:00: [place] [facility] Pneumonia Pneumonia Disease Active 2018-11 Uni vers 0-04 ity of 00:00: [place] [facility] Drug-seeki Drug-seeki Disease Active 2018- U nivers ng ng 4-26 ity of behavior behavior 00:00: [place] [facility] Multifocal Multifocal Disease Active 2017-0 U nivers pneumonia pneumonia 3-12 ity of 00:00: [place] [facility] Dehydratio Dehydratio Disease Active U nivers n n 2-21 ity of 00:00: [place] 00 Medical Branch IBS IBS Disease Active 2010-11 Univers (irritable (irritable 1-18 it y of bowel bowel 00:00: [place] syndrome) syndrome) 00 [facility] Branch Depression Depression Disease Active 2010-11 U nivers 1-18 ity of 00:00: [place] 00 Medical Branch Allergies, Adverse Reactions, Alerts Allergy Allergy Status Severity Reaction(s) Onset Inactive Treating Comm ents Source Name Type Date Date Clinician fentanyl DA Active SV 2021-0 [facility] 2-26 Clear 00:00: [place] 00 [facility] fentanyl DA Active SV SOB/ 2020-0 [facility] 2-26 Clear 00:00: [place] 00 [facility] TRAMADOL DRUG Active ITCHING 2019-0 Univers INGREDI 9-15 ity of 00:00: [place] 00 Medical Branch Tramadol Propensi Active Swelling 2019-0 Univ ers ty to 9-15 ity of adverse 00:00: [place] reaction 00 Medical s [place] FENTANYL DRUG Active Hives 2018-0 Univers HCL INGREDI 2-20 ity of 00:00: [place] 00 Medical Branch Fentanyl Propensi Active Hives 2018-0 Univer s Hcl ty to 2-20 ity of adverse 00:00: [place] reaction 00 [facility] metoclop DA Active [place] HIVES 2017-0 [facility] ramide 2-19 Clear HCl 00:00: [place] 00 [facility] ketorola DA Active [place] HIVES 2017-0 [facility] c 2-19 Clear trometha 00:00: [facility] 00 [facility] ondanset DA Active [place] HIVES 2017-0 [facility] sondra HCl 2-19 Clear 00:00: [place] 00 [facility] Sulfa DA Active [place] HIVES 2017-0 [facility] (Sulfona 2-19 Clear mide 00:00: Sol Antibiot 00 [facility] ics) Medical [place] morphine DA Active U HIVES 2017-0 [facility] 2-19 Clear 00:00: Sol 00 [facility] codeine DA Active U HIVES 2017-0 [facility] 2-19 Clear 00:00: [place] 00 [facility] pentazoc DA Active U RASH 2017-0 [facility] ine 2-19 Clear 00:00: [place] 00 [facility] metoclop DA Active NH 2017-0 [facility] ramide 2-19 Clear HCl 00:00: [place] 00 [facility] ketorola DA Active NH 2017-0 [facility] c 2-19 Clear trometha 00:00: Sol mine 00 [facility] ondanset DA Active [place] 2017-0 [facility] sondra HCl 2-19 Clear 00:00: Sol 00 [facility] Sulfa DA Active [place] 2017-0 [facility] (Sulfona 2-19 Clear mide 00:00: Sol [facility]iot [facility] morphine DA Active U 2017-0 [facility] 2-19 Clear 00:00: Sol 00 [facility] codeine DA Active U 2017-0 [facility] 2-19 Clear 00:00: [place] 00 [facility] pentazoc DA Active U 2017-0 [facility] ine 2-19 Clear 00:00: [place] 00 [facility] MORPHINE DRUG Active Low Hives 2016-0 Univers [...] Medical s Branch DICYCLOM DRUG Active Hives 2016-0 Univers INE INGREDI 3-12 ity of 00:00: [place] 00 Medical Branch CAFFEINE DRUG Active Hives 2016-0 Univers INGREDI 3-12 ity of 00:00: [place] 00 Medical Branch PENTAZOC DRUG Active Hives 2016-0 Univers INE INGREDI 3-12 ity of LACTATE 00:00: [place] 00 Medical Branch KETOROLA DRUG Active Hives 2016-0 Univers C INGREDI 3-12 ity of TROMETHA [...] Medical s Branch Ketorola Propensi Active Hives 2016-0 Univer s c ty to 3-12 ity [...] Itching 2010-11 Unive rs ramide ty to -18 ity of Hcl adverse 00:00: [place] reaction 00 Medical s Branch Sulfa Propensi Active Nausea 2010-11 Univers (Sulfona ty to and/or 18 ity of mide adverse Vomiting 00:00: [place] Antibiot reaction Medica l ics) s Branch Ondanset Propensi Active Itching 2010-11 Unive rs sondra Hcl ty to 18 ity of (Pf) adverse 00:00: [place] reaction 00 Medical s Branch Social History Social Habit Start Date Stop Date Quantity Comments Source Exposure to Not sure [facility] SARS-CoV-2 [facility] (event) Branch Alcohol intake 2020-10-15 2020-10-15 Current [facility] 00:00:00 00:00:00 non-drinker of [facility] alcohol [place] (finding) Tobacco use and 2020-09-16 2020-09-16 Never used Universit y of exposure 00:00:00 00:00:00 [facility] History SDOH 2020-07-24 2020-07-24 5 University o f Financial 00:00:00 00:00:00 [facility] Education 2020-07-24 2020-07-24 13 University 00:00:00 00:00:00 [facility] Tobacco Comment 2020-07-24 2020-07-24 2-3 Universit y of 00:00:00 00:00:00 cigerette/day [facility] al Branch Sex [birth year] At [birth year] Universit y of 00:00:00 00:00:00 [facility] Smoking Status Start Date Stop Date Source Current every day 2020-09-16 00:00:00 [facility] smoker Medical Branch Former smoker 2019-08-23 00:00:00 2019-08-23 00:00:00 Universi ty of [facility] Medications Ordered Filled Start Stop Current Ordering [...] Medical delayed-rel daily. Branch ease suspension HYDROmorpho 2019-11 2020- No 1mg 1 mg, Slow Univers ne 2-16 12-16 IV Push, ity of (DILAUDID) 14:45: 14:18 ONCE, 1 Juan as injection 1 00 :00 dose, Wed Med ical mg 10/30/20 Branch at 0845, Routine
Use approved by (Faculty): GENERAL SURGERY
General surgeon approving: Kalee ALPRAZolam 2019-11 Yes 2mg 2 mg, Univer s (XANAX) 2-16 Oral, BID, ity of tablet 2 mg 02:00: First dose [place] 00 on [facility] 10/29/20 Branch at 2000, Until Discontinu ed, Routine simethicone 2019-11 Yes [id number] 80mg Take 1 Univers 80 mg 2-16 tablet by ity of chewable 00:00: mouth at [place] tablet 00 bedtime as Medical needed for Branch Gas. ciprofloxac 2019- Yes [id number] 500mg Take 1 Univers in HCl 500 2-16 tablet by ity of mg tablet 00:00: mouth [place] 00 every 12 Medical (twelve) Branch hours. metroNIDAZO 2019- Yes [id number] 500mg Take 1 Univers LE 500 mg 2-16 tablet by ity o f tablet 00:00: mouth [place] 00 every 8 Medical (eight) Branch hours. metoprolol 2019- Yes [id number] 25mg Take 1 Un thor tartrate 25 2-16 tablet by ity of mg tablet 00:00: mouth 2 [place] 00 (two) Medical times Branch daily. ciprofloxac 2019-11 Yes 500mg 500 mg, Un thor in HCl 2-16 Oral, ity of (CIPRO) 00:00: Q12HA2, [place] tablet 500 00 First dose Med ical mg on [facility] Branch 10/29/20 at 1800, Until Discontinu ed, LUISA
Re ason for Anti-Infec tive: Empiric Therapy for Suspected Infection< br>Empiric Therapy Site: Skin / Soft tissue
Duration of therapy: 7 days simethicone 2019- Yes [id number] 80mg Take 1 Univers 80 mg 2-16 tablet by ity of chewable 00:00: mouth at [place] tablet 00 bedtime as Medical needed for Branch Gas. ciprofloxac 2020- Yes [id number] 500mg Take 1 Univers in HCl 500 2-16 tablet by ity of mg tablet 00:00: mouth [place] 00 every 12 Medical (twelve) Branch hours. metroNIDAZO 2019-1 Yes [id number] 500mg Take 1 Univers LE 500 mg 2-16 tablet by ity o f tablet 00:00: mouth [place] 00 every 8 Medical (eight) Branch hours. metoprolol 2019- Yes [id number] 25mg Take 1 Un thor tartrate 25 2-16 tablet by ity of mg tablet 00:00: mouth 2 [place] 00 (two) Medical times Branch daily. simethicone 2019- Yes [id number] 80mg Take 1 Univers 80 mg 2-16 tablet by ity of chewable 00:00: mouth at [place] tablet 00 bedtime as Medical needed for Branch Gas. ciprofloxac 2019- Yes [id number] 500mg Take 1 Univers in HCl 500 2-16 tablet by ity of mg tablet 00:00: mouth [place] 00 every 12 Medical (twelve) Branch hours. metroNIDAZO 2019- Yes [id number] 500mg Take 1 Univers LE 500 mg 2-16 tablet by ity o f tablet 00:00: mouth [place] 00 every 8 Medical (eight) Branch hours. metoprolol 2019- Yes [id number] 25mg Take 1 Un thor tartrate 25 2-16 tablet by ity of mg tablet 00:00: mouth 2 [place] 00 (two) Medical times Branch daily. simethicone 2019- Yes [id number] 80mg Take 1 Univers 80 mg 2-16 tablet by ity of chewable 00:00: mouth at [place] tablet 00 bedtime as Medical needed for Branch Gas. ciprofloxac 2019- Yes [id number] 500mg Take 1 Univers in HCl 500 2-16 tablet by ity of mg tablet 00:00: mouth [place] 00 every 12 Medical (twelve) Branch hours. metroNIDAZO 2019- Yes [id number] 500mg Take 1 Univers LE 500 mg 2-16 tablet by ity o f tablet 00:00: mouth [place] 00 every 8 Medical (eight) Branch hours. metoprolol 2019- Yes [id number] 25mg Take 1 Un thor tartrate 25 2-16 tablet by ity of mg tablet 00:00: mouth 2 [place] 00 (two) Medical times Branch daily. simethicone 2020-1 Yes [id number] 80mg Take 1 Univers 80 mg 2-16 tablet by ity of chewable 00:00: mouth at [place] tablet 00 bedtime as Medical needed for Branch Gas. ciprofloxac 2019-1 Yes [id number] 500mg Take 1 Univers in HCl 500 2-16 tablet by ity of mg tablet 00:00: mouth [place] 00 every 12 Medical (twelve) Branch hours. metroNIDAZO 2019- Yes [id number] 500mg Take 1 Univers LE 500 mg 2-16 tablet by ity o f tablet 00:00: mouth [place] 00 every 8 Medical (eight) Branch hours. metoprolol 2019- Yes [id number] 25mg Take 1 Un thor tartrate 25 2-16 tablet by ity of mg tablet 00:00: mouth 2 [place] 00 (two) Medical times Branch daily. simethicone 2019- Yes [id number] 80mg Take 1 Univers 80 mg 2-16 tablet by ity of chewable 00:00: mouth at [place] tablet 00 bedtime as Medical needed for Branch Gas. ciprofloxac 2019- Yes [id number] 500mg Take 1 Univers in HCl 500 2-16 tablet by ity of mg tablet 00:00: mouth [place] 00 every 12 Medical (twelve) Branch hours. metroNIDAZO 2019-1 Yes [id number] 500mg Take 1 Univers LE 500 mg 2-16 tablet by ity o f tablet 00:00: mouth [place] 00 every 8 Medical (eight) Branch hours. metoprolol 2019- Yes [id number] 25mg Take 1 Un thor tartrate 25 2-16 tablet by ity of mg tablet 00:00: mouth 2 [place] 00 (two) Medical times Branch daily. simethicone 2019- Yes [id number] 80mg Take 1 Univers 80 mg 2-16 tablet by ity of chewable 00:00: mouth at [place] tablet 00 bedtime as Medical needed for Branch Gas. ciprofloxac 2019-1 Yes [id number] 500mg Take 1 Univers in HCl 500 2-16 tablet by ity of mg tablet 00:00: mouth [place] 00 every 12 Medical (twelve) Branch hours. metroNIDAZO 2019-1 Yes [id number] 500mg Take 1 Univers LE 500 mg 2-16 tablet by ity o f tablet 00:00: mouth [place] 00 every 8 Medical (eight) Branch hours. metoprolol 2019- Yes [id number] 25mg Take 1 Un thor tartrate 25 2-16 tablet by ity of mg tablet 00:00: mouth 2 [place] 00 (two) Medical times Branch daily. simethicone 2019- Yes [id number] 80mg Take 1 Univers 80 mg 2-16 tablet by ity of chewable 00:00: mouth at [place] tablet 00 bedtime as Medical needed for Branch Gas. ciprofloxac 2019- Yes [id number] 500mg Take 1 Univers in HCl 500 2-16 tablet by ity of mg tablet 00:00: mouth [place] 00 every 12 Medical (twelve) Branch hours. metroNIDAZO 2019- Yes [id number] 500mg Take 1 Univers LE 500 mg 2-16 tablet by ity o f tablet 00:00: mouth [place] 00 every 8 Medical (eight) Branch hours. metoprolol 2019-11 Yes [id number] 25mg Take 1 Un thor tartrate 25 2-16 tablet by ity of mg tablet 00:00: mouth 2 [place] 00 (two) Medical times Branch daily. simethicone 2019-11 Yes [id number] 80mg Take 1 Univers 80 mg 2-16 tablet by ity of chewable 00:00: mouth at [place] tablet 00 bedtime as Medical needed for Branch Gas. ciprofloxac 2019- Yes [id number] 500mg Take 1 Univers in HCl 500 2-16 tablet by ity of mg tablet 00:00: mouth [place] 00 every 12 Medical (twelve) Branch hours. metroNIDAZO 2019- Yes [id number] 500mg Take 1 Univers LE 500 mg 2-16 tablet by ity o f tablet 00:00: mouth [place] 00 every 8 Medical (eight) Branch hours. metoprolol 2019- Yes [id number] 25mg Take 1 Un thor tartrate 25 2-16 tablet by ity of mg tablet 00:00: mouth 2 [place] 00 (two) Medical times Branch daily. simethicone 2019- Yes [id number] 80mg Take 1 Univers 80 mg 2-16 tablet by ity of chewable 00:00: mouth at [place] tablet 00 bedtime as Medical needed for Branch Gas. ciprofloxac 2019- Yes [id number] 500mg Take 1 Univers in HCl 500 2-16 tablet by ity of mg tablet 00:00: mouth [place] 00 every 12 Medical (twelve) Branch hours. metroNIDAZO 2019- Yes [id number] 500mg Take 1 Univers LE 500 mg 2-16 tablet by ity o f tablet 00:00: mouth [place] 00 every 8 Medical (eight) Branch hours. metoprolol 2019- Yes [id number] 25mg Take 1 Un thor tartrate 25 2-16 tablet by ity of mg tablet 00:00: mouth 2 [place] 00 (two) Medical times Branch daily. simethicone 2019- Yes [id number] 80mg Take 1 Univers 80 mg 2-16 tablet by ity of chewable 00:00: mouth at [place] tablet 00 bedtime as Medical needed for Branch Gas. ciprofloxac 2019- Yes [id number] 500mg Take 1 Univers in HCl 500 2-16 tablet by ity of mg tablet 00:00: mouth [place] 00 every 12 Medical (twelve) Branch hours. metroNIDAZO 2019- Yes [id number] 500mg Take 1 Univers LE 500 mg 2-16 tablet by ity o f tablet 00:00: mouth [place] 00 every 8 Medical (eight) Branch hours. metoprolol 2019-11 Yes [id number] 25mg Take 1 Un thor tartrate 25 2-16 tablet by ity of mg tablet 00:00: mouth 2 [place] 00 (two) Medical times Branch daily. simethicone 2019- Yes [id number] 80mg Take 1 Univers 80 mg 2-16 tablet by ity of chewable 00:00: mouth at [place] tablet 00 bedtime as Medical needed for Branch Gas. ciprofloxac 2019- Yes [id number] 500mg Take 1 Univers in HCl 500 2-16 tablet by ity of mg tablet 00:00: mouth [place] 00 every 12 Medical (twelve) Branch hours. metroNIDAZO 2019- Yes [id number] 500mg Take 1 Univers LE 500 mg 2-16 tablet by ity o f tablet 00:00: mouth [place] 00 every 8 Medical (eight) Branch hours. metoprolol 2019-11 Yes [id number] 25mg Take 1 Un thor tartrate 25 2-16 tablet by ity of mg tablet 00:00: mouth 2 [place] 00 (two) Medical times Branch daily. ibuprofen 2020-1 2020- No [id number] 800mg Take 1 Univers 800 mg 2-16 12-31 tablet by ity of tablet 00:00: 05:59 mouth [place] 00 :00 every 6 Medical (six) Branch hours as needed for Pain (scale 1-3) for up to 14 days. proMETHazin 2019- 2020- No [id number] 25mg Take 1 Univers e 25 mg 2-16 12-31 tablet by ity of tablet 00:00: 05:59 mouth [place] 00 :00 every 8 Medical (eight) Branch hours as needed for Nausea and Vomiting (N/V) for up to 14 days. ibuprofen 2019-11- No [id number] 800mg Take 1 Univers 800 mg 2-16 12-31 tablet by ity of tablet 00:00: 05:59 mouth [place] 00 :00 every 6 Medical (six) Branch hours as needed for Pain (scale 1-3) for up to 14 days. proMETHazin 2019-11- No [id number] 25mg Take 1 Univers e 25 mg 2-16 12-31 tablet by ity of tablet 00:00: 05:59 mouth [place] 00 :00 every 8 Medical (eight) Branch hours as needed for Nausea and Vomiting (N/V) for up to 14 days. ibuprofen 2019-11- No [id number] 800mg Take 1 Univers 800 mg 2-16 12-31 tablet by ity of tablet 00:00: 05:59 mouth [place] 00 :00 every 6 Medical (six) Branch hours as needed for Pain (scale 1-3) for up to 14 days. proMETHazin 2019-11- No [id number] 25mg Take 1 Univers e 25 mg 2-16 12-31 tablet by ity of tablet 00:00: 05:59 mouth [place] 00 :00 every 8 Medical (eight) Branch hours as needed for Nausea and Vomiting (N/V) for up to 14 days. ibuprofen 2019-11- No [id number] 800mg Take 1 Univers 800 mg 2-16 12-31 tablet by ity of tablet 00:00: 05:59 mouth [place] 00 :00 every 6 Medical (six) Branch hours as needed for Pain (scale 1-3) for up to 14 days. proMETHazin 2019-11- No [id number] 25mg Take 1 Univers e 25 mg 2-16 12-31 tablet by ity of tablet 00:00: 05:59 mouth [place] 00 :00 every 8 Medical (eight) Branch hours as needed for Nausea and Vomiting (N/V) for up to 14 days. ibuprofen 2019-11- No [id number] 800mg Take 1 Univers 800 mg 2-16 12-31 tablet by ity of tablet 00:00: 05:59 mouth [place] 00 :00 every 6 Medical (six) Branch hours as needed for Pain (scale 1-3) for up to 14 days. proMETHazin 2019-11- No [id number] 25mg Take 1 Univers e 25 mg 2-16 12-31 tablet by ity of tablet 00:00: 05:59 mouth [place] 00 :00 every 8 Medical (eight) Branch hours as needed for Nausea and Vomiting (N/V) for up to 14 days. ibuprofen 2019-11- No [id number] 800mg Take 1 Univers 800 mg 2-16 12-31 tablet by ity of tablet 00:00: 05:59 mouth [place] 00 :00 every 6 Medical (six) Branch hours as needed for Pain (scale 1-3) for up to 14 days. proMETHazin 2019-11 No [id number] 25mg Take 1 Univers e 25 mg 2-16 12-31 tablet by ity of tablet 00:00: 05:59 mouth [place] 00 :00 every 8 Medical (eight) Branch hours as needed for Nausea and Vomiting (N/V) for up to 14 days. ibuprofen 2019-11- No [id number] 800mg Take 1 Univers 800 mg 2-16 12-31 tablet by ity of tablet 00:00: 05:59 mouth [place] 00 :00 every 6 Medical (six) Branch hours as needed for Pain (scale 1-3) for up to 14 days. proMETHazin 2019-11- No [id number] 25mg Take 1 Univers e 25 mg 2-16 12-31 tablet by ity of tablet 00:00: 05:59 mouth [place] 00 :00 every 8 Medical (eight) Branch hours as needed for Nausea and Vomiting (N/V) for up to 14 days. HYDROcodone 2019-11- No [id number] 1{tbl} Take 1 U nivers -acetaminop 2-16 12-24 tablet by it y of hen (NORCO) 00:00: 05:59 mouth [place] 10-325 mg 00 :00 every 6 Medical tablet (six) Branch hours as needed for Pain (scale 7-10) for up to 7 days. Indication s: acute pain ALPRAZolam 2019-2019- No [id number] 2mg Take 1 Univers 2 mg tablet 2-16 12-24 tablet by it y of 00:00: 05:59 mouth 2 [place] 00 :00 (two) Medical times Branch daily for 7 days. HYDROcodone 2019-2019- No [id number] 1{tbl} Take 1 U nivers -acetaminop 2-16 12-24 tablet by it y of hen (MaidSafe) 00:00: 05:59 mouth [place] 10-325 mg 00 :00 every 6 Medical tablet (six) Branch hours as needed for Pain (scale 7-10) for up to 7 days. Indication s: acute pain ALPRAZolam 2019-2019- No [id number] 2mg Take 1 Univers 2 mg tablet 2-16 12-24 tablet by it y of 00:00: 05:59 mouth 2 [place] 00 :00 (two) Medical times Branch daily for 7 days. HYDROcodone 2019-11- No [id number] 1{tbl} Take 1 U nivers -acetaminop 2-16 12-24 tablet by it y of hen (MaidSafe) 00:00: 05:59 mouth [place] 10-325 mg 00 :00 every 6 Medical tablet (six) Branch hours as needed for Pain (scale 7-10) for up to 7 days. Indication s: acute pain ALPRAZolam 2019-2019- No [id number] 2mg Take 1 Univers 2 mg tablet 2-16 12-24 tablet by it y of 00:00: 05:59 mouth 2 [place] 00 :00 (two) Medical times Branch daily for 7 days. HYDROcodone 2019-11- No [id number] 1{tbl} Take 1 U nivers -acetaminop 2-16 12-24 tablet by it y of hen (MaidSafe) 00:00: 05:59 mouth [place] 10-325 mg 00 :00 every 6 Medical tablet (six) Branch hours as needed for Pain (scale 7-10) for up to 7 days. Indication s: acute pain ALPRAZolam 2019-2019- No [id number] 2mg Take 1 Univers 2 mg tablet 2-16 12-24 tablet by it y of 00:00: 05:59 mouth 2 [place] 00 :00 (two) Medical times Branch daily for 7 days. ciprofloxac 2019-11- No [id number] 500mg Take 1 Univers in HCl 500 2-16 12-16 tablet by ity of mg tablet 00:00: 00:00 mouth [place] 00 :00 every 12 Medical (twelve) Branch hours for 14 days. metroNIDAZO 2019-11- No [id number] 500mg Take 1 Univers LE 500 mg 2-16 12-16 tablet by ity of tablet 00:00: 00:00 mouth [place] 00 :00 every 8 Medical (eight) Branch hours for 14 days. ciprofloxac 2019-11- No [id number] 500mg Take 1 Univers in HCl 500 2-16 12-16 tablet by ity of mg tablet 00:00: 00:00 mouth [place] 00 :00 every 12 Medical (twelve) Branch hours. metroNIDAZO 2019-11- No [id number] 500mg Take 1 Univers LE 500 mg 2-16 12-16 tablet by ity of tablet 00:00: 00:00 mouth [place] 00 :00 every 8 Medical (eight) Branch hours. metoprolol 2019-11- No [id number] 25mg Take 1 U nivers tartrate 25 2-16 12-16 tablet by it y of mg tablet 00:00: 00:00 mouth 2 [place] :00 (two) Medical times Branch daily. metroNIDAZO 2019-11 Yes 500mg 500 mg, Un thor LE (FLAGYL) 2-15 Oral, Q8H, it y of tablet 500 20:00: First dose [place] mg 00 on [facility] 10/29/20 Branch at 1400, Until Discontinu ed, Routine
Reason for Anti-Infec tive: Empiric Therapy for Suspected Infection< br>Empiric Therapy Site: Abdominal& lt;br>Dura tion of therapy: 7 days magnesium 2019-11 2020- No 2g 2 g, IV Univ ers sulfate in 2-15 -15 Piggyback, it y of water 2 17:45: 18:42 ONCE, 1 [place] gram/50 mL 00 :00 dose, [facility] ryann (4 %) 10/29/20 Branch infusion 2 at 1145, g Routine HYDROmorpho 2019-11 Yes 2mg 2 mg, Unive rs ne 2-15 Oral, ity of (DILAUDID) 15:19: Q4[place]PRN[place] 2 mg 37 Starting Medi ryann [facility] 10/29/20 at 0919, Until Discontinu ed, Routine, Pain (scale 7-10) KCL 20 2019-11 Yes 40meq 40 mEq, Univers mEq/15 mL 2-15 Oral, ity of solution 40 15:00: DAILY, [place] mEq 00 First dose Medical on [facility] 10/29/20 at 0900, Until Discontinu ed, Routine HYDROmorpho 2019-11- No .5mg 0.5 mg, Un thor ne 2-15 12-15 Slow IV ity of (DILAUDID) 07:37: 14:36 Push, [place] injection 39 :49 Q4HPRN, Medical 0.5 mg Starting Branch [facility] 10/29/20 at 0137, Until 10/29/20 at 0836, Routine, Pain (scale 7-10)
U se approved by (Faculty): GENERAL SURGERY
General surgeon approving: Phatak KCL 2019-11- No 40meq 40 mEq, Univers (KLOR-CON - 12-15 Oral, ity of M20) tablet 15:00: 13:15 DAILY, [place] 40 mEq 00 :49 First dose Medical on [facility] 10/28/20 at 0900, Until Discontinu ed, Routine KCL 2019-11- No 20meq 20 mEq, Univers (KLOR-CON 2-28 10-14 Oral, ity of M20) tablet 07:45: 06:54 ONCE, 1 [place] 20 mEq 00 :00 dose, [facility] 10/28/20 Branch at 0145, Routine magnesium 2019-11 2020- No 2g 2 g, IV Univ ers sulfate in 12-28-14 Piggyback, it y of water 2 18:30: 00:58 ONCE, 1 [place] gram/50 mL 00 :00 dose, Sun Medi ryann (4 %) 10/27/20 Branch infusion 2 at 1230, g Routine KCL 2019-11 2020- No 40meq 40 mEq, Univers (POTASSIUM -27 10-14 Intravenou it y of CHLORIDE) 18:30: 07:20 s, [place] 40 mEq in 00 :00 Administer Medi ryann NaCl 0.9% over 4 Branch (NS) 250 mL Hours, ONCE, 1 dose, 10/27/20 at 1230, Routine HYDROmorpho 2019-11 2020- No .5mg 0.5 mg, Un thor [...] 1 [place] 400) tablet 00 :00 dose, Wed Med ical 400 mg 10/25/20 Branch at [...] at 0900, Until Discontinu ed, Routine metroNIDAZO 2019-11- No 500mg 500 mg, IV Univers LE in NaCl 12-26 Infusion, ity of (iso-os) 02:30: 15:20 Q8H ABX, [place] (FLAGYL 00 :14 First dose Medica l I.V.) RTU on [facility] Branch IV infusion 10/24/20 500 mg at 2030, Until Discontinu ed, 100 mL
R bonnie for Anti-Infec tive: Empiric Non-Surgic al Prophylaxi s
Durat ion of therapy: 7 days ciprofloxac 2019-11 No 400mg 400 mg, IV Univers in in 5 % 12-26 Piggyback, ity of dextrose 02:30: 15:20 Administer [place] (CIPRO) 00 :14 over 60 Medical piggyback Minutes, Branch 400 mg Q12H ABX, First dose on [facility] 10/24/20 at 2030, Until Discontinu ed, LUISA
Re ason for Anti-Infec tive: Empiric Non-Surgic al Prophylaxi s
Durat ion of therapy: 7 days diphenhydrA 2019-11 Yes 12.5mg 12.5 mg, Univers MINE 12-26 Oral, BID, ity of (BENADRYL) 02:00: First dose [place] 12.5 mg/5 00 on [facility] Medical mL solution 10/24/20 Bran ch 12.5 mg at 2000, Until Discontinu ed, Routine metoprolol 2019-11 Yes 25mg 25 mg, Unive rs tartrate -11 Oral, BID, ity o f (LOPRESSOR) 02:00: [...] ONCE, 1 Medica l NaCl 0.9% dose, [facility] Branc h (NS) 50 mL 10/24/20 IV [...] at 2200, Until Discontinu ed, Routine HYDROcodone 2020-1 Yes 10mg 10 mg, Univ ers -acetaminop 2-05 Oral, Q4H, it y of hen (HYCET) 02:00: First dose [place] 7.5-325 00 on Fri Medical mg/15 mL 10/18/[address] [facility] h solution 10 2000, mg Until Discontinu ed, Routine HYDROcodone 2019-11 Yes [id number] 1{tbl} Take 1 Un thor -acetaminop 2-05 tablet by ity of hen (NORCO) 00:00: mouth [place] 10-325 mg 00 every 6 Medical tablet (six) Branch hours as needed for Pain (scale 7-10). Indication s: acute pain ibuprofen 2019-11 Yes [id number] 600mg Take 1 U nivers 600 mg 2-05 tablet by ity of tablet 00:00: mouth [place] 00 every 6 Medical (six) Branch hours as needed for Pain (scale 1-3). proMETHazin 2019-11 Yes [id number] 25mg Take 1 Univers e 25 mg [...] Indication s: acute pain ibuprofen 2019-11 Yes [id number] 600mg Take 1 U nivers 600 mg 2-05 tablet by ity of tablet 00:00: mouth [place] 00 every 6 Medical (six) Branch hours as needed for Pain (scale 1-3). proMETHazin 2019-11 Yes [id number] 25mg Take 1 Univers e 25 mg 2-05 tablet by ity of tablet 00:00: mouth [place] 00 every 8 Medical (eight) Branch hours as needed for Nausea and Vomiting (N/V). gabapentin 2019-11- No [id number] 300mg Take 1 Univers 300 mg 2-05 12-20 capsule by ity of capsule 00:00: 05:59 mouth 3 [place] 00 :00 (three) Medical times Branch daily for 14 days. gabapentin 2019-11- No [id number] 300mg Take 1 Univers 300 mg 2-05 [...] (scale 7-10). Indication s: acute pain ALPRAZolam 2019-11 2020- No [id number] 2mg Take 1 Univers 2 mg tablet 2-05 12-13 tablet by it y of 00:00: 05:59 mouth 2 [place] 00 :00 (two) Medical times Branch daily for 7 days. ALPRAZolam 2019- 2020- No [id number] 2mg Take 1 Univers 2 mg tablet 2-05 12-13 tablet by it y of 00:00: 05:59 mouth 2 [place] 00 :00 (two) Medical times Branch daily for 7 days. simethicone 2019-11 2020- No [id number] 80mg Take 1 Univers 80 mg 2-05 12-11 tablet by ity of chewable 00:00: 05:59 mouth [place] tablet 00 :00 after Medical meals and Branch at bedtime for 5 days. simethicone 2019- 2020- No [id number] 80mg Take 1 Univers 80 mg 2-05 12-11 tablet by ity of chewable 00:00: 05:59 mouth [place] tablet 00 :00 after Medical meals and Branch at bedtime for 5 days. ibuprofen 2019-11 2020- No [id number] 600mg Take 1 Univers 600 mg 2-05 12-10 tablet by ity of tablet 00:00: 00:00 mouth [place] 00 :00 every 6 Medical (six) Branch hours as needed for Pain (scale 1-3). simethicone 2019- 2020- No [id number] 80mg Take 1 Univers 80 mg 2-05 12-10 tablet by ity of chewable 00:00: 00:00 mouth [place] tablet 00 :00 after Medical meals and Branch at bedtime for 5 days. gabapentin 2019- 2020- No [id number] 300mg Take 1 Univers 300 mg 2-05 12-10 capsule by ity of capsule 00:00: 00:00 mouth 3 [place] 00 :00 (three) Medical times Branch daily for 14 days. ALPRAZolam 2019-11- No [id number] 2mg Take 1 Univers 2 mg tablet 12-20 12-10 tablet by it y of 00:00: 00:00 mouth 2 [place] 00 :00 (two) Medical times Branch daily for 7 days. proMETHazin 2019-11- No [id number] 25mg Take 1 Univers e 25 mg 2- 12-10 tablet by ity of tablet 00:00: 00:00 mouth [place] 00 :00 every 8 Medical (eight) Branch hours as needed for Nausea and Vomiting (N/V). proMETHazin 2019-11- No [id number] 25mg Take 1 Univers e 25 mg - 12-05 tablet by ity of tablet 00:00: 00:00 mouth [place] 00 :00 every 4 Medical (four) Branch hours as needed for Nausea and Vomiting (N/V) for up to 7 days. HYDROmorpho 2019-11 Yes 1mg 1 mg, Slow Univers ne 2-04 IV Push, ity of (DILAUDID) 02:56: Q6HPRN, [place] injection 1 33 Starting Medi ryann mg [facility] 10/17/20 at 2056, Until Discontinu ed, Routine, Pain (scale 7-10)
U se approved by (Faculty): GENERAL SURGERY
General surgeon approving: Darren Clark ALPRAZolam 2019-11 Yes .25mg 0.25 mg, Un thor (XANAX) 2-04 Oral, BID, ity of tablet 0.25 02:00: First dose [place] mg 00 on [facility] Medical 10/17/20 at Branch 2000, Until Discontinu ed, Routine HYDROcodone 2019-11- No 5mg 5 mg, Univ ers -acetaminop 2 12-04 Oral, Q4H, i ty of hen (HYCET) 22:00: 22:24 First dose [place] 7.5-325 00 :22 (after Medical mg/15 mL last Branch solution 5 modificati mg on) on [facility] 10/17/20 at 1600, Until Discontinu ed, Routine bisacodyL 2019-11 Yes 10mg 10 mg, Univer s (DULCOLAX) 2-03 Rectal, ity of suppository 03:00: QHSPRN, [place] 10 mg 00 Starting Medical Wed [facility] 10/16/20 at 2100, Until Discontinu ed, Routine, Constipati on traZODone 2019-11 2020- No 50mg 50 mg, Unive rs (COMPOUNDED 12-18 Oral, QHS, i ty of ) oral 03:00: 19:57 First dose [place] suspension 00 :34 on Wed Medical 50 mg 10/16/20 at Branch 2100, Until Discontinu ed, Routine methocarbam 2019-11 Yes 1000mg 1,000 mg, Univers oL 12-17 Intravenou ity of (ROBAXIN) 20:00: s, Q8H, [place] injection 00 First dose Medi ryann 1,000 mg on Wed [facility] 10/16/20 at 1400, Until Discontinu ed, Routine ibuprofen 2019-11 Yes 600mg 600 mg, Univ ers (IBU) 12-17 Oral, Q6H, ity of tablet 600 18:00: First dose [place] mg 00 (after Medical last Branch modificati on) on [facility] 10/16/20 at 1200, Until Discontinu ed, Routine acetaminoph 2019-11 2020- No 500mg 500 mg, U nivers en 12-1704 Oral, Q6H, ity of (TYLENOL) 18:00: 22:24 First dose [place] 160 mg/5 mL 00 :23 (after Medica l liquid 500 last Branch mg modificati on) on [facility] 10/16/20 at 1200, Until Discontinu ed, Routine bisacodyL 2019-11 2020- No 10mg 10 mg, Unive rs (DULCOLAX) 12-17 Rectal, ity o f suppository 15:45: 14:55 ONCE, 1 [place] 10 mg 00 :00 dose, Wed [facility] 10/16/20 at Branch 0945, Routine melatonin 2019-11 Yes 3mg 3 mg, Univers (MELATIN) 12-17 Oral, QHS, ity of tablet 3 mg 03:00: First dose [place] 00 on Wed [facility] 10/15/20 at Branch 2100, Until Discontinu ed, Routine acetaminoph 2019-11 2020- No 650mg 650 mg, U nivers en 12-16 Oral, Q8H, ity of (TYLENOL) 20:00: 14:59 First dose [place] 160 mg/5 mL 00 :29 on [facility] Medica l liquid 650 10/15/20 at [facility] mg 1400, Until Discontinu ed, Routine HYDROcodone 2019-11- No 5mg 5 mg, Univ ers -acetaminop 12-16 Oral, Q6H, i ty of hen (HYCET) 18:00: 19:51 First dose [place] 7.5-325 00 :24 (after Medical mg/15 mL last Branch solution 5 modificati mg on) on [facility] 10/15/20 at 1200, Until Discontinu ed, Routine HYDROMORPHO 2019-11- No Unive rs NE TRADE SPECIALIST 12-16 ity of 6MG/30ML 17:00: 14:57 [place] 00 :48 Medical Branch NaCl 0.9% 2019-11 Yes 10mL 10 mL, Univer s (NS) 12-16 Slow IV ity of injection 16:51: Push, PRN, [place] 10 mL 43 Starting Medical [facility] 10/15/20 at 1051, Until Discontinu ed, Routine, line maintenanc e enoxaparin 2019-11 Yes 40mg 40 mg, Unive rs (LOVENOX) 12-16 Subcutaneo ity of injection 15:00: us, Q24H, [place] 40 mg 00 First dose Medical on [facility] 10/15/20 at 0900, Until Discontinu ed, Routine sennosides 2019-11- No 8.6mg 8.6 mg, Un thor (SENOKOT) 12-16 Oral, ity of tablet 8.6 15:00: 19:51 DAILY, [place] mg 00 :23 First dose Medical on [facility] 10/15/20 at 0900, Until Discontinu ed, Routine docusate 2019-11- No 100mg 100 mg, Univ ers (COLACE) 12-16 Oral, ity of capsule 100 15:00: 19:51 DAILY, [place] mg 00 :23 First dose Medical on [facility] 10/15/20 at 0900, Until Discontinu ed, Routine [...] mg in 05 Starting Medical NaCl 0.9% [facility] Branch (NS) 50 mL 10/14/20 IV at 2156, piggyback Until Discontinu ed, Routine, Nausea and Vomiting (N/V) HYDROMORPHO 2019-11 2020- No Unive rs NE TRADE SPECIALIST 12-16 ity of 6MG/30ML 03:00: 16:54 [place] 00 :51 Medical Branch pantoprazol 2019-11 Yes 40mg 40 mg, Univ ers e 12-16 Oral, BID, ity of (PROTONIX) 02:00: First dose [place] EC tablet 00 on Mon Medical 40 mg 10/14/20 Branch at 1999, Until Discontinu ed, Routine metoprolol 2019-11 Yes 25mg 25 mg, Unive rs tartrate 12-16 Oral, BID, ity o f (LOPRESSOR) 02:00: First dose [place] tablet 25 00 on [facility] Medical mg 10/14/20 Branch at 1999, Until Discontinu ed, Routine diphenhydrA 2019-11 2020- No 12.5mg 12.5 mg, Univers MINE 12-16 Slow IV ity of (BENADRYL) 01:59: 03:57 Push, [place] injection 02 :54 Q6HPRN, Medical 12.5 mg Starting Branch Wed10/14/20 at 1959, Until Wed10/14/20 at 2156, Routine, Itching naloxone 2019-11 Yes .1mg 0.1 mg, Univer s (NARCAN) 12-16 Slow IV ity of injection 01:57: Push, [place] 0.1 mg 05 SEE-INSTRU Medical CTIONS, Branch Starting 10/14/20 at 1957, Until Discontinu ed, Routine acetaminoph 2019-11 2020- [...] ity of (fixed 17:30: 01:59 [place] dose) TRADE SPECIALIST 00 :31 Medical injection Branch lactated 2019-11- [...] Wed10/14/20 at 1215, Routine, Itching, PACU HYDROmorpho 2019-11 2020- No .2mg 0.2 mg, Un thor ne 12-14 Slow IV ity of (DILAUDID) 16:32: 18:15 Push, [place] injection 00 :20 Q5MIN PRN, Medi ryann 0.2 mg 10 doses, Branch Starting Wed10/14/20 at 1032, Until Wed10/14/20 at 1215, Routine, Pain (scale 7-10), PACU
Us e approved by (Faculty): PACU USE -ANESTHESI A SERVICE-HY DROMORPHON E INJECTIONS naloxone 2019-11 Yes .1mg 0.1 mg, Univer s (NARCAN) 12-14 Slow IV ity of injection 16:28: Push, [place] 0.1 mg 37 SEE-INSTRU Medical CTIONS, Branch Starting Wed10/14/20 at 1028, Until Discontinu ed, Routine Pantoprazol 2019-11 Yes 40mg Take 40 mg Univers e 30 by mouth 2 ity of (PROTONIX) 16:22: (two) [place] 40 mg 03 times Medical delayed-rel daily. Branch ease suspension heparin 2019-11- No 5000U 5,000 Univers (porcine) 12-14 Units, ity of injection 12:45: 12:42 Subcutaneo [place] 5,000 Units 00 :00 us, ONCE, Med ical 1 dose, Branch 10/14/20 at 0645, Routine, DSU Pre-op gabapentin 2019-11- [...] No 25mg 25 mg, IV Univers e 12-02-18 Piggyback, ity of (PHENERGAN) 06:30: 06:30 ONCE, 1 [place] 25 mg in 00 :00 dose, Wed Medica l NaCl 0.9% 10/02/20 Branch (NS) 50 mL at 0030, piggyback 50 mL NaCl 0.9% 2019-11- No 1000mL at 999 Uni vers (NS) bolus 12-02 11-18 mL/hr, ity of infusion 05:30: 06:38 1,000 mL, [place] 1,000 mL 00 :00 IV Medical Infusion, Branch ONCE, 1 dose, 10/01/20 at 2330, LUISA acetaminoph 2019-11 Yes [id number] 1{tbl} Take 1 [...] (scale 1-3). Indication s: chronic pain ALPRAZolam 2019-11 Yes 2mg Take 2 mg [...] Branch ease suspension opium 10 2019-11 Yes [id number] 1mL Take 1 mL Univers mg/mL 1-13 by mouth ity of (morphine) 00:00: every 6 [place] tincture 00 (six) Medical hours. Branch opium 10 2019-11 Yes [id number] 1mL Take 1 mL Univers mg/mL 1-13 by mouth ity of (morphine) 00:00: every 6 [place] tincture 00 (six) Medical hours. Branch opium 10 2019-11 Yes [id number] 1mL Take 1 mL Univers mg/mL 1-13 by mouth ity of (morphine) 00:00: every 6 [place] tincture 00 (six) Medical hours. Branch opium 10 2019-11 Yes [id number] 1mL Take 1 mL Univers mg/mL 1-13 by mouth ity of (morphine) 00:00: every 6 [place] tincture 00 (six) Medical hours. Branch opium 10 2019-11 Yes [id number] 1mL Take 1 mL Univers mg/mL 1-13 by mouth ity of (morphine) 00:00: every 6 [place] tincture 00 (six) Medical hours. Branch opium 10 2019-11 Yes [id number] 1mL Take 1 mL Univers mg/mL 1-13 by mouth ity of (morphine) 00:00: every 6 [place] tincture 00 (six) Medical hours. Branch opium 10 2019-11 Yes [id number] 1mL Take 1 mL Univers mg/mL 1-13 by mouth ity of (morphine) 00:00: every 6 [place] tincture 00 (six) Medical hours. Branch opium 10 2019-11 Yes [id number] 1mL Take 1 mL Univers mg/mL 1-13 by mouth ity of (morphine) 00:00: every 6 [place] tincture 00 (six) Medical hours. Branch opium 2019-11 Yes [id number] 1mL Take 1 mL Univers mg/mL 1-13 by mouth ity of (morphine) 00:00: every 6 [place] tincture 00 (six) Medical hours. Branch opium 10 2019-11 Yes [id number] 1mL Take 1 mL Univers mg/mL 1-13 by mouth ity of (morphine) 00:00: every 6 [place] tincture 00 (six) Medical hours. Branch opium 2019-11 Yes [id number] 1mL Take 1 mL Univers mg/mL 1-13 by mouth ity of (morphine) 00:00: every 6 [place] tincture 00 (six) Medical hours. Branch opium 2019-11 Yes [id number] 1mL Take 1 mL Univers mg/mL 1-13 by mouth ity of (morphine) 00:00: every 6 [place] tincture 00 (six) Medical hours. Branch opium 2019-11 Yes [id number] 1mL Take 1 mL Univers mg/mL 1-13 by mouth ity of (morphine) 00:00: every 6 [place] tincture 00 (six) Medical hours. Branch opium 2019-11 Yes [id number] 1mL Take 1 mL Univers mg/mL 1-13 by mouth ity of (morphine) 00:00: every 6 [place] tincture 00 (six) Medical hours. Branch opium 10 2019-11 Yes [id number] 1mL Take 1 mL Univers mg/mL 1-13 by mouth ity of (morphine) 00:00: every 6 [place] tincture 00 (six) Medical hours. Branch opium 10 2019-11 Yes [id number] 1mL Take 1 mL Univers mg/mL 1-13 by mouth ity of (morphine) 00:00: every 6 [place] tincture 00 (six) Medical hours. Branch opium 10 2019-11 Yes [id number] 1mL Take 1 mL Univers mg/mL 1-13 by mouth ity of (morphine) 00:00: every 6 [place] tincture 00 (six) Medical hours. Branch opium 10 2019-11 Yes [id number] 1mL Take 1 mL Univers mg/mL 1-13 by mouth ity of (morphine) 00:00: every 6 [place] tincture 00 (six) Medical hours. Branch opium 2019-11 Yes [id number] 1mL Take 1 mL Univers mg/mL 1-13 by mouth ity of (morphine) 00:00: every 6 [place] tincture 00 (six) Medical hours. Branch opium 10 2019-11 Yes [id number] 1mL Take 1 mL Univers mg/mL 1-13 by mouth ity of (morphine) 00:00: every 6 [place] tincture 00 (six) Medical hours. Branch opium 10 2019-11 Yes [id number] 1mL Take 1 mL Univers mg/mL 1-13 by mouth ity of (morphine) 00:00: every 6 [place] tincture 00 (six) Medical hours. Branch opium 10 2019-11 Yes [id number] 1mL Take 1 mL Univers mg/mL 1-13 by mouth ity of (morphine) 00:00: every 6 [place] tincture 00 (six) Medical hours. Branch opium 10 2019-11 Yes [id number] 1mL Take 1 mL Univers mg/mL 1-13 by mouth ity of (morphine) 00:00: every 6 [place] tincture 00 (six) Medical hours. Branch opium 10 2019-11 Yes [id number] 1mL Take 1 mL Univers mg/mL 1-13 by mouth ity of (morphine) 00:00: every 6 [place] tincture 00 (six) Medical hours. Branch opium 10 2019-11 Yes [id number] 1mL Take 1 mL Univers mg/mL 1-13 by mouth ity of (morphine) 00:00: every 6 [place] tincture 00 (six) Medical hours. Branch opium 10 2019-11 Yes [id number] 1mL Take 1 mL Univers mg/mL 1-13 by mouth ity of (morphine) 00:00: every 6 [place] tincture 00 (six) Medical hours. Branch psyllium 2019-11 2020- No [id number] 1{packe Take 1 Univers 3.4 gram 1-13 12-14 t} Packet by ity o f packet 00:00: 05:59 mouth 3 [place] 00 :00 ([facility]) Medical times Branch daily before meals for 30 days. psyllium 2019-11- No [id number] 1{packe Take 1 Univers 3.4 gram 1-13 12-14 t} Packet by ity o f packet 00:00: 05:59 mouth 3 [place] 00 :00 ([facility]) Medical times [facility] daily before meals for 30 days. psyllium 2019-11- No [id number] 1{packe Take 1 Univers 3.4 gram 1-13 12-14 t} Packet by ity o f packet 00:00: 05:59 mouth 3 [place] 00 :00 ([facility]) Medical times [facility] daily before meals for 30 days. psyllium 2019-11- No [id number] 1{packe Take 1 Univers 3.4 gram 1-13 12-14 t} Packet by ity o f packet 00:00: 05:59 mouth 3 [place] 00 :00 ([facility]) Medical times [facility] daily before meals for 30 days. psyllium 2019-11- No [id number] 1{packe Take 1 Univers 3.4 gram 1-13 12-14 t} Packet by ity o f packet 00:00: 05:59 mouth 3 [place] 00 :00 ([facility]) Medical times [facility] daily before meals for 30 days. psyllium 2019-11- No [id number] 1{packe Take 1 Univers 3.4 gram 1-13 12-14 t} Packet by ity o f packet 00:00: 05:59 mouth 3 [place] 00 :00 ([facility]) Medical times Branch daily before meals for 30 days. psyllium 2019-11- No [id number] 1{packe Take 1 Univers 3.4 gram 1-13 12-14 t} Packet by ity o f packet 00:00: 05:59 mouth 3 [place] 00 :00 ([facility]) Medical times Branch daily before meals for 30 days. psyllium 2019-11- No [id number] 1{packe Take 1 Univers 3.4 gram 1-13 12-14 t} Packet by ity o f packet 00:00: 05:59 mouth 3 [place] 00 :00 ([facility]) Medical times Branch daily before meals for 30 days. psyllium 2019-11- No [id number] 1{packe Take 1 Univers 3.4 gram 1-13 12-14 t} Packet by ity o f packet 00:00: 05:59 mouth 3 [place] 00 :00 (three) Medical times Branch daily before meals for 30 days. psyllium 2019-11 2020- No [id number] 1{packe Take 1 Univers 3.4 gram 1-13 12-14 t} Packet by ity o f packet 00:00: 05:59 mouth 3 [place] 00 :00 (three) Medical times Branch daily before meals for 30 days. psyllium 2019-11- No [id number] 1{packe Take 1 Univers 3.4 gram 1-13 12-14 t} Packet by ity o f packet 00:00: 05:59 mouth 3 [place] 00 :00 (three) Medical times Branch daily before meals for 30 days. psyllium 2019-11- No [id number] 1{packe Take 1 Univers 3.4 gram 1-13 12-14 t} Packet by ity o f packet 00:00: 05:59 mouth 3 [place] 00 :00 (three) Medical times Branch daily before meals for 30 days. psyllium 2019-11- No [id number] 1{packe Take 1 Univers 3.4 gram 1-13 12-14 t} Packet by ity o f packet 00:00: 05:59 mouth 3 [place] 00 :00 (three) Medical times Branch daily before meals for 30 days. psyllium 2019-11- No [id number] 1{packe Take 1 Univers 3.4 gram 1-13 12-14 t} Packet by ity o f packet 00:00: 05:59 mouth 3 [place] 00 :00 (three) Medical times Branch daily before meals for 30 days. psyllium 2019-11 2020- No [id number] 1{packe Take 1 Univers 3.4 gram 1-13 12-10 t} Packet by ity o f packet 00:00: 00:00 mouth 3 [place] 00 :00 (three) Medical times Branch daily before meals for 30 days. dextroamphe 2019-11- No 30mg Take 30 mg Univers tamine-amph 11-18-04 by mouth 2 i ty of etamine [...] No .5mg 0.5 mg, Un thor ne 11-18-04 Slow IV ity of (DILAUDID) 01:15: 00:26 [...] (scale 4-6). Indication s: acute pain proMETHazin 2019-11- No [id number] 25mg Take 1 Univers e 25 mg 1-04 11-25 tablet by ity of tablet 00:00: 05:59 mouth [place] 00 :00 every 6 Medical (six) Branch hours as needed for Nausea and Vomiting (N/V) for up to 20 days. proMETHazin 2019-11- No [id number] 25mg Take 1 Univers e 25 mg 1-04 11-25 tablet by ity of tablet 00:00: 05:59 mouth [place] 00 :00 every 6 Medical (six) Branch hours as needed for Nausea and Vomiting (N/V) for up to 20 days. proMETHazin 2019-11- No [id number] 25mg Take 1 Univers e 25 mg 1-04 11-25 tablet by ity of tablet 00:00: 05:59 mouth [place] 00 :00 every 6 Medical (six) Branch hours as needed for Nausea and Vomiting (N/V) for up to 20 days. proMETHazin 2019- 2020- No [id number] 25mg Take 1 Univers e 25 mg 1-04 11-25 tablet by ity of tablet 00:00: 05:59 mouth [place] 00 :00 every 6 Medical (six) Branch hours as needed for Nausea and Vomiting (N/V) for up to 20 days. proMETHazin 2019-11- No [id number] 25mg Take 1 Univers e 25 mg 1-04 11-25 tablet by ity of tablet 00:00: 05:59 mouth [place] 00 :00 every 6 Medical (six) Branch hours as needed for Nausea and Vomiting (N/V) for up to 20 days. proMETHazin 2019-11- No [id number] 25mg Take 1 Univers e 25 mg 1-04 11-25 tablet by ity of tablet 00:00: 05:59 mouth [place] 00 :00 every 6 Medical (six) Branch hours as needed for Nausea and Vomiting (N/V) for up to 20 days. proMETHazin 2019-11- No [id number] 25mg Take 1 Univers e 25 mg 1-04 11-25 tablet by ity of tablet 00:00: 05:59 mouth [place] 00 :00 every 6 Medical (six) Branch hours as needed for Nausea and Vomiting (N/V) for up to 20 days. proMETHazin 2019-11- No [id number] 25mg Take 1 Univers e 25 mg 1-04 11-25 tablet by ity of tablet 00:00: 05:59 mouth [place] 00 :00 every 6 Medical (six) Branch hours as needed for Nausea and Vomiting (N/V) for up to 20 days. proMETHazin 2019-2019- No [id number] 25mg Take 1 Univers e 25 mg 1-04 11-25 tablet by ity of tablet 00:00: 05:59 mouth [place] 00 :00 every 6 Medical (six) Branch hours as needed for Nausea and Vomiting (N/V) for up to 20 days. proMETHazin 2019-2019- No [id number] 25mg Take 1 Univers e 25 mg 1-04 11-25 tablet by ity of tablet 00:00: 05:59 mouth [place] 00 :00 every 6 Medical (six) Branch hours as needed for Nausea and Vomiting (N/V) for up to 20 days. proMETHazin 2019- 2020- No [id number] 25mg Take 1 Univers e 25 mg 1-04 11-25 tablet by ity of tablet 00:00: 05:59 mouth [place] 00 :00 every 6 Medical (six) Branch hours as needed for Nausea and Vomiting (N/V) for up to 20 days. proMETHazin 2019- 2020- No [id number] 25mg Take 1 Univers e 25 mg 1-04 11-25 tablet by ity of tablet 00:00: 05:59 mouth [place] 00 :00 every 6 Medical (six) Branch hours as needed for Nausea and Vomiting (N/V) for up to 20 days. proMETHazin 2019- 2020- No [id number] 25mg Take 1 Univers e 25 mg -04 11-25 tablet by ity of tablet 00:00: 05:59 mouth [place] 00 :00 every 6 Medical (six) Branch hours as needed for Nausea and Vomiting (N/V) for up to 20 days. proMETHazin 2019- 2020- No [id number] 25mg Take 1 Univers e 25 mg -04 11-25 tablet by ity of tablet 00:00: 05:59 mouth [place] 00 :00 every 6 Medical (six) Branch hours as needed for Nausea and Vomiting (N/V) for up to 20 days. HYDROmorphO 2019-11- No 1mg 1 mg, Slow [...] mg in 00 Starting Medical NaCl 0.9% [facility] Branch (NS) 50 mL 09/16/20 at IV 1230, piggyback Until Discontinu ed, Routine, Nausea and Vomiting (N/V) HYDROmorpho 2019-11- No .5mg 0.5 mg, Un thor ne 11-15 Slow IV ity of (DILAUDID) 20:03: 16:40 Push, [place] injection 04 :53 Q6HPRN, Medical 0.5 mg Starting Branch 09/15/20 at 1403, Until [facility] 09/16/20 at 1040, Routine, Pain (scale 7-10)
U se approved by (Faculty): ADC PROVIDER HYDROmorphO 2019-11 2020- No 1mg 1 mg, Slow Univers ne 11-15 IV Push, ity of (DILAUDID) 14:38: 18:06 Q4HPRN, [place] injection 1 34 :04 Starting Medi ryann mg Sun Branch 09/15/20 at 0838, Until 09/15/20 at 1206, Routine, Pain (scale 7-10)
U se approved by (Faculty): ADC PROVIDER methylpredn 2019-11 2020- No 125mg 125 mg, U nivers isolone [...] BID, ity of FIBER 19:15: First dose [place] SINGLES) 00 on Sat Medical 3.4 gram [...] HYDROcodone 2019-11 2020- No 1{tbl} 1 tablet, [facility] -acetaminop 09-15 Oral, ity of hen (NORCO) [...] Yes .5mg 0.5 mg, Univ ers (XANAX) 0 Oral, ity of tablet 0.5 13:00: TIDPRN[place] mg 00 Starting Medical Sat Branch 09/14/20 at 0800, Until Discontinu ed, Routine, anxiety clindamycin 2019-11- No 600mg 600 mg, IV Univers in 5 % 09-14 Piggyback, ity of dextrose 06:45: 19:02 Q8H ABX, [place] (CLEOCIN) 00 :12 First dose Medi ryann 600 mg/50 on [facility] Branch mL IV 09/14/20 piggyback at 0145, RTU 600 mg Until Discontinu ed, 50 mL
R bonnie for Anti-Infec tive: Empiric Therapy for Suspected Infection< br>Empiric Therapy Site: Skin / Soft tissue
Duration of therapy: 7 days
Re stricted use approved by: ADC PROVIDER ALPRAZolam 2019-11 No 1mg 1 mg, Unive rs (XANAX) 0-31 10-31 Oral, ity of tablet 1 mg 04:30: [...] 2019-11- No 12.5mg 12.5 mg, Univers e 002 IV ity of (PHENERGAN) 01:23: 18:35 Piggyback, [place] 12.5 mg in 35 :16 Q4HPRN, Medica l NaCl 0.9% Starting Branch (NS) 50 mL Fri IV 09/13/20 piggyback at 2023, Until 09/16/20 at 1235, Routine, Nausea and Vomiting (N/V) metoprolol 2019-11- No 25mg 25 mg, Univ ers tartrate 0-31 11-03 Oral, BID, ity of (LOPRESSOR) 01:00: [...] mg Fri Branch 09/13/20 at 1652, Until Wed09/13/20 at 2022, Routine, Nausea and Vomiting (N/V) morpHINE 2019-11 2020- No 2mg 2 mg, Slow Un thor injection 2 0-30 10-31 IV Push, ity of mg 21:52: 03:49 Q6HPRN, [place] 02 :41 Starting Medical Fri Branch 09/13/20 at 1652, Until Wed09/13/20 at 2249, Routine, Pain (scale 7-10) ALPRAZolam [...] delayed-rel daily. Branch ease suspension diphenhydrA 2019-11 2020- No 12.5mg 12.5 mg, Univers MINE 0-30 10-31 Slow IV ity of (BENADRYL) 21:14: 14:27 Push, [place] injection 00 :41 Q6HPRN, Medical 12.5 mg Starting Branch 09/13/20 at 1614, Until 09/14/20 at 0927, Routine, Itching acetaminoph 2019-11 Yes 650mg 650 mg, Un thor en 0-30 Oral, ity of (TYLENOL) 20:56: Q6HPRN, [place] tablet 650 54 Starting Medic al mg Fri Branch 09/13/20 at 1556, Until Discontinu ed, Routine, Pain (scale 1-3) NaCl 0.9% 2019-11 2020- No 1000mL at 125 Uni vers (NS) [...] mL 00 :00 ONCE, 1 Medical dose, Wed Branch 09/13/20 at 1415, LUISA famotidine 2019-11 2020- No 20mg 20 mg, Univ ers (PEPCID 0-30 10-30 Slow IV ity of (PF)) 19:15: 18:11 Push, [place] injection 00 :00 ONCE, 1 Medical 20 mg dose, Fri Branch 09/13/20 at 1415, LUISA methylpredn 2019-11 2020- No 125mg 125 mg, IV Univers isolone sod 0-30 10-30 Piggyback, i ty of succ 19:15: 18:06 ONCE, 1 [place] (SOLU-MEDRO 00 :00 dose, Wed Med ical L) 09/13/20 Branch injection at 1415, 125 mg STAT morpHINE 2019-11 2020- No 4mg 4 mg, Slow Un thor injection 4 0-30 10-30 IV Push, ity of mg 18:15: 17:33 ONCE, 1 [place] 00 :00 dose, Fri Medical 09/13/20 Branch at 1315, STAT ondansetron 2019-11 2020- [...] 2 it y of etamine 01:28: (two) [place] (ADDERALL) 56 times Medical 30 mg daily. [...] by mouth 2 it y of etamine :28: (two) [place] (ADDERALL) 56 times Medical 30 [...] by mouth 2 it y of etamine :28: (two) [place] (ADDERALL) 56 times Medical 30 mg daily. Branch tablet Pantoprazol 2020-1 Yes 40mg Take 40 mg Univers e 0-28 by mouth 2 ity of (PROTONIX) :28: (two) [place] 40 mg 56 times Medical [...] days. Indication s: acute pain HYDROcodone 2019-11 4647 1{tbl} Take 1 U nivers -acetaminop [...] 7 days. Indication s: acute pain proMETHazin 2019-11 2020- No 25mg 25 mg, [...] ity of mg 11:00: 09:55 ONCE, 1 [place] 00 :00 dose, Sun Medical 09/01/20 Branch at 0600, STAT iohexol 2019-11- No 120mL 120 mL, Unive rs (OMNIPAQUE 0-18 10-18 Intravenou it y of 350 08:15: 07:56 s, ONCE, 1 [place] BULK-100 00 :00 dose, Sun Medica l mL) 09/01/20 Branch injection at 0315, 120 mL Routine NaCl 0.9% 2019-11 No 1000mL at 999 Uni vers (NS) bolus 0-18 10-18 mL/hr, ity of infusion 08:00: 09:54 1,000 mL, [place] as 1,000 mL 00 :00 IV Medical Infusion, Branch ONCE, 1 dose, 09/01/20 at 0300, STAT diphenhydrA 2019-11- No 25mg 25 mg, Uni vers MINE 0-18 10-18 Slow IV ity of (BENADRYL) 08:00: 07:20 Push, [place] injection 00 :00 ONCE, 1 Medical 25 mg dose, Sun Branch 09/01/20 at 0300, STAT proMETHazin 2019-11- No 25mg 25 mg, IV Univers e 0-18 10-18 Piggyback, ity of (PHENERGAN) 08:00: 08:00 ONCE, 1 [place] 25 mg in 00 :00 dose, Sun Medica l NaCl 0.9% 09/01/20 Branch (NS) 50 mL at 0300, piggyback 50 mL morpHINE 2019-11 2020- No 4mg 4 mg, Slow Un thor injection 4 0-18 10-18 IV Push, ity of mg 08:00: 07:22 ONCE, 1 [place] 00 :00 dose, Sun Medical 09/01/20 Branch at 0300, STAT iohexol 2019-11- No 60mL 60 mL, Univers (OMNIPAQUE 0-10 10-10 Intravenou it y of 350 BULK-75 01:45: 01:45 s, ONCE, 1 [place] mL) 00 :00 dose, Fri Medical injection 08/23/20 at Bran ch 60 mL 2045, Routine diphenhydrA 2019-11- No 12.5mg 12.5 mg, Univers MINE 0-10 10-09 Slow IV ity of (BENADRYL) 00:00: 23:44 Push, [place] injection 00 :00 ONCE, 1 Medical 12.5 mg dose, Fri [place] 08/23/20 at 1900, STAT morpHINE 2019-11- No 4mg 4 mg, Slow Un thor injection 4 0-10 10-09 IV Push, ity of mg 00:00: 23:43 ONCE, 1 [place] 00 :00 dose, [facility] 08/23/20 at Branch 1900, STAT NaCl 0.9% 2019-11- No 1000mL at 999 Uni vers (NS) bolus 0-09 10-10 mL/hr, ity of infusion 23:45: 00:00 1,000 mL, [place] 1,000 mL 00 :00 IV Medical Infusion, [place] ONCE, 1 dose, [facility] 08/23/20 at 1845, STAT ALPRAZolam 2019-11 Yes 2mg Take 2 mg Un thor (XANAX) 2 0-06 by mouth 2 ity of mg tablet 16:20: (two) [place] 37 times Medical daily. Branch dextroamphe 2019-11 [...] Sat Medica l NaCl 0.9% 08/17/20 at [facility] (NS) 50 mL 2315, 50 piggyback mL morpHINE 2019-11- No 4mg 4 mg, Slow Un thor injection 4 0-04 10-04 IV Push, ity of mg 04:15: 03:25 ONCE, 1 [place] 00 :00 dose, Sat Medical 08/17/20 at [place] 2315, STAT NaCl 0.9% 2019-11- No 500mL at [address] [place] [address] ers (NS) bolus 0-04 10-04 mL/hr, 500 [...] Medica l mL) 08/17/20 at Branch injection 2130, 119 mL Routine NaCl 0.9% 2019-11 Yes 1000mL at 999 Univ ers (NS) IV 0-04 mL/hr, ity of infusion 02:15: Intravenou [place] 1,000 mL 00 s, Medical CONTINUOUS Branch , Starting 08/17/20 at 211, Until Discontinu ed, Routine proMETHazin 2019-11- No 25mg 25 mg, IV Univers e 008-18 Piggyback, ity of (PHENERGAN) 02:15: 01:24 ONCE, 1 [place] 25 mg in 00 :00 dose, Sat Medica l NaCl 0.9% 08/17/20 at [facility] ch (NS) 50 mL 2114, 50 piggyback mL morpHINE 2019-11- No 4mg 4 mg, Slow Un thor injection 4 08-18 IV Push, ity of mg 02:15: 01:24 ONCE, 1 [place] 00 :00 dose, [facility] Medical 08/17/20 at Branch 2115, STAT diphenhydrA 2019-11- No 25mg 25 mg, Uni vers MINE 008-18 Slow IV ity of (BENADRYL) 02:15: 01:24 Push, [place] injection 00 :00 ONCE, 1 Medical 25 mg dose, Sat Branch 08/17/20 at 2115, STAT proMETHazin 2019-11 Yes [id number] 25mg Take 1 Univers e 25 mg 0-03 tablet by ity of tablet 00:00: mouth [place] 00 every 6 Medical (six) Branch hours as needed for Nausea and Vomiting (N/V). proMETHazin 2019-11 Yes [id number] 25mg Take 1 Univers e 25 mg 0-03 tablet by ity of tablet 00:00: mouth [place] 00 every 6 Medical (six) Branch hours as needed for Nausea and Vomiting (N/V). proMETHazin 2020- Yes [id number] 25mg Take 1 Univers e 25 mg 0-03 tablet by ity of tablet 00:00: mouth [place] 00 every 6 Medical (six) Branch hours as needed for Nausea and Vomiting (N/V). proMETHazin 2020-1 Yes [id number] 25mg Take 1 Univers e 25 mg 0-03 tablet by ity of tablet 00:00: mouth [place] 00 every 6 Medical (six) Branch hours as needed for Nausea and Vomiting (N/V). proMETHazin 2020- Yes [id number] 25mg Take 1 Univers e 25 mg 0-03 tablet by ity of tablet 00:00: mouth [place] 00 every 6 Medical (six) Branch hours as needed for Nausea and Vomiting (N/V). proMETHazin 2019- Yes [id number] 25mg Take 1 Univers e 25 mg 0-03 tablet by ity of tablet 00:00: mouth [place] 00 every 6 Medical (six) Branch hours as needed for Nausea and Vomiting (N/V). proMETHazin 2019- Yes [id number] 25mg Take 1 Univers e 25 mg 0-03 tablet by ity of tablet 00:00: mouth [place] 00 every 6 Medical (six) Branch hours as needed for Nausea and Vomiting (N/V). proMETHazin 2019- Yes [id number] 25mg Take 1 Univers e 25 mg 0-03 tablet by ity of tablet 00:00: mouth [place] 00 every 6 Medical (six) Branch hours as needed for Nausea and Vomiting (N/V). proMETHazin 2019- Yes [id number] 25mg Take 1 Univers e 25 mg 0-03 tablet by ity of tablet 00:00: mouth [place] 00 every 6 Medical (six) Branch hours as needed for Nausea and Vomiting (N/V). proMETHazin 2020-1 Yes [id number] 25mg Take 1 Univers e 25 mg 0-03 tablet by ity of tablet 00:00: mouth [place] 00 every 6 Medical (six) Branch hours as needed for Nausea and Vomiting (N/V). proMETHazin 2020-1 Yes [id number] 25mg Take 1 Univers e 25 mg 0-03 tablet by ity of tablet 00:00: mouth [place] 00 every 6 Medical (six) Branch hours as needed for Nausea and Vomiting (N/V). proMETHazin 2019-1 Yes [id number] 25mg Take 1 Univers e 25 mg 0-03 tablet by ity of tablet 00:00: mouth [place] 00 every 6 Medical (six) Branch hours as needed for Nausea and Vomiting (N/V). proMETHazin 2019- Yes [id number] 25mg Take 1 Univers e 25 mg 0-03 tablet by ity of tablet 00:00: mouth [place] 00 every 6 Medical (six) Branch hours as needed for Nausea and Vomiting (N/V). proMETHazin 2019- Yes [id number] 25mg Take 1 Univers e 25 mg 0-03 tablet by ity of tablet 00:00: mouth [place] 00 every 6 Medical (six) Branch hours as needed for Nausea and Vomiting (N/V). proMETHazin 2019-1 Yes [id number] 25mg Take 1 Univers e 25 mg 0-03 tablet by ity of tablet 00:00: mouth [place] 00 every 6 Medical (six) Branch hours as needed for Nausea and Vomiting (N/V). proMETHazin 2019- Yes [id number] 25mg Take 1 Univers e 25 mg 0-03 tablet by ity of tablet 00:00: mouth [place] 00 every 6 Medical (six) Branch hours as needed for Nausea and Vomiting (N/V). proMETHazin 2019-1 Yes [id number] 25mg Take 1 Univers e 25 mg 0-03 tablet by ity of tablet 00:00: mouth [place] 00 every 6 Medical (six) Branch hours as needed for Nausea and Vomiting (N/V). proMETHazin 2019- Yes [id number] 25mg Take 1 Univers e 25 mg 0-03 tablet by ity of tablet 00:00: mouth [place] 00 every 6 Medical (six) Branch hours as needed for Nausea and Vomiting (N/V). proMETHazin 2019-1 Yes [id number] 25mg Take 1 Univers e 25 mg 0-03 tablet by ity of tablet 00:00: mouth [place] 00 every 6 Medical (six) Branch hours as needed for Nausea and Vomiting (N/V). proMETHazin 2019-11 2020- No [id number] 25mg Take 1 Univers e 25 mg 0-03 11-04 tablet by ity of tablet 00:00: 00:00 mouth [place] 00 :00 every 6 Medical (six) Branch hours as needed for Nausea and Vomiting (N/V). ALPRAZolam 2019-0 Yes 2mg Take 2 mg Un thor [...] s tablet 2 [facility] at 0700, Until Discontinu ed, Routine, Pain (scale 7-10) ibuprofen 2020-0 Yes [id number] 600mg Take 1 Univers 600 mg 9-17 tablet by ity of tablet 00:00: mouth [place] 00 every 6 Medical (six) Branch hours. loperamide 2020-0 Yes [id number] 2mg Take 1 Univers 2 mg 9-17 capsule by ity of capsule 00:00: mouth [place] 00 daily. Medical Branch methocarbam 2020-0 Yes [id number] 500mg Take 1 Univers oL 500 mg 9-17 tablet by ity o f tablet 00:00: mouth 4 [place] 00 (four) Medical times Branch daily. ibuprofen 2020-0 Yes [id number] 600mg Take 1 [facility] 600 mg 9-17 tablet by ity of tablet 00:00: mouth [place] 00 every 6 Medical (six) Branch hours. loperamide 2020-0 Yes [id number] 2mg Take 1 Univers 2 mg 9-17 capsule by ity of capsule 00:00: mouth [place] 00 daily. Medical Branch methocarbam 2020-0 Yes [id number] 500mg Take 1 Univers oL 500 mg 9-17 tablet by ity o f tablet 00:00: mouth 4 [place] 00 (four) Medical times Branch daily. ibuprofen 2020-0 Yes [id number] 600mg Take 1 [facility] 600 mg 9-17 tablet by ity of tablet 00:00: mouth [place] 00 every 6 Medical (six) Branch hours. loperamide 2020-0 Yes [id number] 2mg Take 1 Univers 2 mg 9-17 capsule by ity of capsule 00:00: mouth [place] 00 daily. Medical Branch methocarbam 2020-0 Yes [id number] 500mg Take 1 Univers oL 500 mg 9-17 tablet by ity o f tablet 00:00: mouth 4 [place] 00 (four) Medical times Branch daily. ibuprofen 2020-0 Yes [id number] 600mg Take 1 [facility] 600 mg 9-17 tablet by ity of tablet 00:00: mouth [place] 00 every 6 Medical (six) Branch hours. loperamide 2020-0 Yes [id number] 2mg Take 1 Univers 2 mg 9-17 capsule by ity of capsule 00:00: mouth 00 daily. Medical Branch methocarbam 2020-0 Yes [id number] 500mg Take 1 Univers oL 500 mg 9-17 tablet by ity o f tablet 00:00: mouth (four) Medical times Branch daily. ibuprofen 2020-0 Yes [id number] 600mg Take 1 [facility] 600 mg 9-17 tablet by ity of tablet 00:00: mouth [place] 00 every 6 Medical (six) Branch hours. loperamide 2020-0 Yes [id number] 2mg Take 1 [facility] 2 mg 9-17 capsule by ity of capsule 00:00: mouth 00 daily. Medical Branch methocarbam 2020-0 Yes [id number] 500mg Take 1 Univers oL 500 mg 9-17 tablet by ity o f tablet 00:00: mouth (four) Medical times Branch daily. ibuprofen 2020-0 Yes [id number] 600mg Take 1 [facility] 600 mg 9-17 tablet by ity of tablet 00:00: mouth 00 every 6 Medical (six) Branch hours. loperamide 2020-0 Yes [id number] 2mg Take 1 [facility] 2 mg 9-17 capsule by ity of capsule 00:00: mouth 00 daily. Medical Branch methocarbam 2020-0 Yes [id number] 500mg Take 1 [facility] oL 500 mg 9-17 tablet by ity o f tablet 00:00: mouth (four) Medical times Branch daily. ibuprofen 2020-0 Yes [id number] 600mg Take 1 [facility] 600 mg 9-17 tablet by ity of tablet 00:00: mouth 00 every 6 Medical (six) Branch hours. loperamide 2020-0 Yes [id number] 2mg Take 1 [facility] 2 mg 9-17 capsule by ity of capsule 00:00: mouth 00 daily. Medical Branch methocarbam 2020-0 Yes [id number] 500mg Take 1 Univers oL 500 mg 9-17 tablet by ity o f tablet 00:00: mouth (four) Medical times Branch daily. ibuprofen 2020-0 Yes [id number] 600mg Take 1 [facility] 600 mg 9-17 tablet by ity of tablet 00:00: mouth [place] 00 every 6 Medical (six) Branch hours. loperamide 2020-0 Yes [id number] 2mg Take 1 Univers 2 mg 9-17 capsule by ity of capsule 00:00: mouth [place] 00 daily. Medical Branch methocarbam 2020-0 Yes [id number] 500mg Take 1 Univers oL 500 mg 9-17 tablet by ity o f tablet 00:00: mouth (four) Medical times Branch daily. ibuprofen 2020-0 Yes [id number] 600mg Take 1 [facility] 600 mg 9-17 tablet by ity of tablet 00:00: mouth 00 every 6 Medical (six) Branch hours. loperamide 2020-0 Yes [id number] 2mg Take 1 Univers 2 mg 9-17 capsule by ity of capsule 00:00: mouth 00 daily. Medical Branch methocarbam 2020-0 Yes [id number] 500mg Take 1 Univers oL 500 mg 9-17 tablet by ity o f tablet 00:00: mouth (four) Medical times Branch daily. ibuprofen 2020-0 Yes [id number] 600mg Take 1 [facility] 600 mg 9-17 tablet by ity of tablet 00:00: mouth 00 every 6 Medical (six) Branch hours. loperamide 2020-0 Yes [id number] 2mg Take 1 Univers 2 mg 9-17 capsule by ity of capsule 00:00: mouth 00 daily. Medical Branch methocarbam 2020-0 Yes [id number] 500mg Take 1 Univers oL 500 mg 9-17 tablet by ity o f tablet 00:00: mouth (four) Medical times Branch daily. ibuprofen 2020-0 Yes [id number] 600mg Take 1 [facility] 600 mg 9-17 tablet by ity of tablet 00:00: mouth 00 every 6 Medical (six) Branch hours. loperamide 2020-0 Yes [id number] 2mg Take 1 [facility] 2 mg 9-17 capsule by ity of capsule 00:00: mouth 00 daily. Medical Branch methocarbam 2020-0 Yes [id number] 500mg Take 1 [facility] oL 500 mg 9-17 tablet by ity o f tablet 00:00: mouth (four) Medical times Branch daily. ibuprofen 2020-0 Yes [id number] 600mg Take 1 [facility] 600 mg 9-17 tablet by ity of tablet 00:00: mouth 00 every 6 Medical (six) Branch hours. loperamide 2020-0 Yes [id number] 2mg Take 1 [facility] 2 mg 9-17 capsule by ity of capsule 00:00: mouth 00 daily. Medical Branch methocarbam 2020-0 Yes [id number] 500mg Take 1 [facility] oL 500 mg 9-17 tablet by ity o f tablet 00:00: mouth (four) Medical times Branch daily. ibuprofen 2020-0 Yes [id number] 600mg Take 1 [facility] 600 mg 9-17 tablet by ity of tablet 00:00: mouth [place] 00 every 6 Medical (six) Branch hours. loperamide 2020-0 Yes [id number] 2mg Take 1 Univers 2 mg 9-17 capsule by ity of capsule 00:00: mouth [place] 00 daily. Medical Branch methocarbam 2020-0 Yes [id number] 500mg Take 1 Univers oL 500 mg 9-17 tablet by ity o f tablet 00:00: mouth (four) Medical times Branch daily. ibuprofen 2020-0 Yes [id number] 600mg Take 1 [facility] 600 mg 9-17 tablet by ity of tablet 00:00: mouth [place] 00 every 6 Medical (six) Branch hours. loperamide 2020-0 Yes [id number] 2mg Take 1 Univers 2 mg 9-17 capsule by ity of capsule 00:00: mouth 00 daily. Medical Branch methocarbam 2020-0 Yes [id number] 500mg Take 1 Univers oL 500 mg 9-17 tablet by ity o f tablet 00:00: mouth (four) Medical times Branch daily. ibuprofen 2020-0 Yes [id number] 600mg Take 1 [facility] 600 mg 9-17 tablet by ity of tablet 00:00: mouth [place] 00 every 6 Medical (six) Branch hours. loperamide 2020-0 Yes [id number] 2mg Take 1 [facility] 2 mg 9-17 capsule by ity of capsule 00:00: mouth [place] 00 daily. Medical Branch methocarbam 2020-0 Yes [id number] 500mg Take 1 [facility] oL 500 mg 9-17 tablet by ity o f tablet 00:00: mouth (four) Medical times Branch daily. ibuprofen 2020-0 Yes [id number] 600mg Take 1 [facility] 600 mg 9-17 tablet by ity of tablet 00:00: mouth [place] 00 every 6 Medical (six) Branch hours. loperamide 2020-0 Yes [id number] 2mg Take 1 [facility] 2 mg 9-17 capsule by ity of capsule 00:00: mouth 00 daily. Medical Branch methocarbam 2020-0 Yes [id number] 500mg Take 1 [facility] oL 500 mg 9-17 tablet by ity o f tablet 00:00: mouth (four) Medical times Branch daily. ibuprofen 2020-0 Yes [id number] 600mg Take 1 [facility] 600 mg 9-17 tablet by ity of tablet 00:00: mouth [place] 00 every 6 Medical (six) Branch hours. loperamide 2020-0 Yes [id number] 2mg Take 1 Univers 2 mg 9-17 capsule by ity of capsule 00:00: mouth [place] 00 daily. Medical Branch methocarbam 2020-0 Yes [id number] 500mg Take 1 Univers oL 500 mg 9-17 tablet by ity o f tablet 00:00: mouth 4 (four) Medical times Branch daily. ibuprofen 2020-0 Yes [id number] 600mg Take 1 [facility] 600 mg 9-17 tablet by ity of tablet 00:00: mouth [place] 00 every 6 Medical (six) Branch hours. loperamide 2020-0 Yes [id number] 2mg Take 1 [facility] 2 mg 9-17 capsule by ity of capsule 00:00: mouth [place] 00 daily. Medical Branch methocarbam 2020-0 Yes [id number] 500mg Take 1 [facility] oL 500 mg 9-17 tablet by ity o f tablet 00:00: mouth (four) Medical times Branch daily. ibuprofen 2020-0 Yes [id number] 600mg Take 1 [facility] 600 mg 9-17 tablet by ity of tablet 00:00: mouth [place] 00 every 6 Medical (six) Branch hours. loperamide 2020-0 Yes [id number] 2mg Take 1 [facility] 2 mg 9-17 capsule by ity of capsule 00:00: mouth [place] 00 daily. Medical Branch methocarbam 2020-0 Yes [id number] 500mg Take 1 Univers oL 500 mg 9-17 tablet by ity o f tablet 00:00: mouth (four) Medical times Branch daily. ibuprofen 2020-0 Yes [id number] 600mg Take 1 [facility] 600 mg 9-17 tablet by ity of tablet 00:00: mouth [place] 00 every 6 Medical (six) Branch hours. loperamide 2020-0 Yes [id number] 2mg Take 1 [facility] 2 mg 9-17 capsule by ity of capsule 00:00: mouth [place] 00 daily. Medical Branch methocarbam 2020-0 Yes [id number] 500mg Take 1 Univers oL 500 mg 9-17 tablet by ity o f tablet 00:00: mouth 4 [place] 00 (four) Medical times Branch daily. ibuprofen 2020-0 Yes [id number] 600mg Take 1 [facility] 600 mg 9-17 tablet by ity of tablet 00:00: mouth [place] 00 every 6 Medical (six) Branch hours. loperamide 2020-0 Yes [id number] 2mg Take 1 Univers 2 mg 9-17 capsule by ity of capsule 00:00: mouth [place] 00 daily. Medical Branch methocarbam 2020-0 Yes [id number] 500mg Take 1 Univers oL 500 mg 9-17 tablet by ity o f tablet 00:00: mouth [address] [place] [address] (four) Medical times Branch daily. ibuprofen 2020-0 Yes [id number] 600mg Take 1 [facility] 600 mg 9-17 tablet by ity of tablet 00:00: mouth [place] 00 every 6 Medical (six) Branch hours. loperamide 2020-0 Yes [id number] 2mg Take 1 [facility] 2 mg 9-17 capsule by ity of capsule 00:00: mouth [place] 00 daily. Medical Branch methocarbam 2020-0 Yes [id number] 500mg Take 1 Univers oL 500 mg 9-17 tablet by ity o f tablet 00:00: mouth [address] [place] [address] (four) Medical times Branch daily. ibuprofen 2020-0 Yes [id number] 600mg Take 1 [facility] 600 mg 9-17 tablet by ity of tablet 00:00: mouth [place] 00 every 6 Medical (six) Branch hours. loperamide 2020-0 Yes [id number] 2mg Take 1 [facility] 2 mg 9-17 capsule by ity of capsule 00:00: mouth [place] 00 daily. Medical Branch methocarbam 2020-0 Yes [id number] 500mg Take 1 [facility] oL 500 mg 9-17 tablet by ity o f tablet 00:00: [address] (four) Medical times Branch daily. ibuprofen 2020-0 Yes [id number] 600mg Take 1 [facility] 600 mg 9-17 tablet by ity of tablet 00:00: mouth [place] 00 every 6 Medical (six) Branch hours. loperamide 2020-0 Yes [id number] 2mg Take 1 [facility] 2 mg 9-17 capsule by ity of capsule 00:00: mouth [place] 00 daily. Medical Branch methocarbam 2020-0 Yes [id number] 500mg Take 1 [facility] oL 500 mg 9-17 tablet by ity o f tablet 00:00: mouth [address] [place] [address] (four) Medical times Branch daily. ibuprofen 2020-0 Yes [id number] 600mg Take 1 [facility] 600 mg 9-17 tablet by ity of tablet 00:00: mouth [place] 00 every 6 Medical (six) Branch hours. loperamide 2020-0 Yes [id number] 2mg Take 1 [facility] 2 mg 9-17 capsule by ity of capsule 00:00: mouth [place] 00 daily. Medical Branch methocarbam 2020-0 Yes [id number] 500mg Take 1 [facility] oL 500 mg 9-17 tablet by ity o f tablet 00:00: mouth (four) Medical times Branch daily. ibuprofen 2020-0 Yes [id number] 600mg Take 1 [facility] 600 mg 9-17 tablet by ity of tablet 00:00: mouth [place] 00 every 6 Medical (six) Branch hours. methocarbam 2020-0 Yes [id number] 500mg Take 1 [facility] oL 500 mg 9-17 tablet by ity o f tablet 00:00: mouth (four) Medical times Branch daily. ibuprofen 2020-0 Yes [id number] 600mg Take 1 [facility] 600 mg 9-17 tablet by ity of tablet 00:00: mouth [place] 00 every 6 Medical (six) Branch hours. methocarbam 2020-0 Yes [id number] 500mg Take 1 [facility] oL 500 mg 9-17 tablet by ity o f tablet 00:00: mouth (four) Medical times Branch daily. ibuprofen 2020-0 Yes [id number] 600mg Take 1 [facility] 600 mg 9-17 tablet by ity of tablet 00:00: mouth [place] 00 every 6 Medical (six) Branch hours. methocarbam 2020-0 Yes [id number] 500mg Take 1 [facility] oL 500 mg 9-17 tablet by ity o f tablet 00:00: mouth (four) Medical times Branch daily. ibuprofen 2020-0 Yes [id number] 600mg Take 1 [facility] 600 mg 9-17 tablet by ity of tablet 00:00: mouth [place] 00 every 6 Medical (six) Branch hours. methocarbam 2020-0 Yes [id number] 500mg Take 1 [facility] oL 500 mg 9-17 tablet by ity o f tablet 00:00: mouth (four) Medical times Branch daily. acetaminoph 2020-0 2021- No [id number] 650mg Take 2 Univers en 325 mg 9-17 09-18 tablets by ity of tablet 00:00: 04:59 mouth [place] 00 :00 every 6 Medical (six) Branch hours. acetaminoph 2020-0 2021- No [id number] 650mg Take 2 Univers en 325 mg 9-17 09-18 tablets by ity of tablet 00:00: 04:59 mouth [place] 00 :00 every 6 Medical (six) Branch hours. acetaminoph 2020- No [id number] 650mg Take 2 Univers en 325 mg 9-17 09-18 tablets by ity of tablet 00:00: 04:59 mouth [place] 00 :00 every 6 Medical (six) Branch hours. acetaminoph 2020- No [id number] 650mg Take 2 Univers en 325 mg 9-17 09-18 tablets by ity of tablet 00:00: 04:59 mouth [place] 00 :00 every 6 Medical (six) Branch hours. acetaminoph 2020- No [id number] 650mg Take 2 Univers en 325 mg 9-17 09-18 tablets by ity of tablet 00:00: 04:59 mouth [place] 00 :00 every 6 Medical (six) Branch hours. acetaminoph 2020- No [id number] 650mg Take 2 Univers en 325 mg 9-17 09-18 tablets by ity of tablet 00:00: 04:59 mouth [place] 00 :00 every 6 Medical (six) Branch hours. acetaminoph 2020- No [id number] 650mg Take 2 Univers en 325 mg 9-17 09-18 tablets by ity of tablet 00:00: 04:59 mouth [place] 00 :00 every 6 Medical (six) Branch hours. acetaminoph 2020- No [id number] 650mg Take 2 [facility] en 325 mg 9-17 09-18 tablets by ity of tablet 00:00: 04:59 mouth [place] 00 :00 every 6 Medical (six) Branch hours. acetaminoph 20202020- No [id number] 650mg Take 2 [facility] en 325 mg 9-17 09-18 tablets by ity of tablet 00:00: 04:59 mouth [place] 00 :00 every 6 Medical (six) Branch hours. acetaminoph 20202020- No [id number] 650mg Take 2 [facility] en 325 mg 9-17 09-18 tablets by ity of tablet 00:00: 04:59 mouth [place] 00 :00 every 6 Medical (six) Branch hours. acetaminoph 2020- No [id number] 650mg Take 2 [facility] en 325 mg 9-17 09-18 tablets by ity of tablet 00:00: 04:59 mouth [place] 00 :00 every 6 Medical (six) Branch hours. acetaminoph 2020- No [id number] 650mg Take 2 [facility] en 325 mg 9-17 09-18 tablets by ity of tablet 00:00: 04:59 mouth [place] 00 :00 every 6 Medical (six) Branch hours. acetaminoph 2020- No [id number] 650mg Take 2 [facility] en 325 mg 9-17 09-18 tablets by ity of tablet 00:00: 04:59 mouth [place] 00 :00 every 6 Medical (six) Branch hours. acetaminoph 2020- No [id number] 650mg Take 2 [facility] en 325 mg 9-17 09-18 tablets by ity of tablet 00:00: 04:59 mouth [place] 00 :00 every 6 Medical (six) Branch hours. acetaminoph 2020- No [id number] 650mg Take 2 [facility] en 325 mg 9-17 09-18 tablets by ity of tablet 00:00: 04:59 mouth [place] 00 :00 every 6 Medical (six) Branch hours. acetaminoph 2020- No [id number] 650mg Take 2 [facility] en 325 mg 9-17 09-18 tablets by ity of tablet 00:00: 04:59 mouth [place] 00 :00 every 6 Medical (six) Branch hours. acetaminoph 2020- No [id number] 650mg Take 2 [facility] en 325 mg 9-17 09-18 tablets by ity of tablet 00:00: 04:59 mouth [place] 00 :00 every 6 Medical (six) Branch hours. acetaminoph 2020- No [id number] 650mg Take 2 [facility] en 325 mg 9-17 09-18 tablets by ity of tablet 00:00: 04:59 mouth [place] 00 :00 every 6 Medical (six) Branch hours. acetaminoph 2020- No [id number] 650mg Take 2 [facility] en 325 mg 9-17 09-18 tablets by ity of tablet 00:00: 04:59 mouth [place] 00 :00 every 6 Medical (six) Branch hours. acetaminoph 2020- No [id number] 650mg Take 2 [facility] en 325 mg 9-17 09-18 tablets by ity of tablet 00:00: 04:59 mouth [place] 00 :00 every 6 Medical (six) Branch hours. acetaminoph 2020- No [id number] 650mg Take 2 [facility] en 325 mg 9-17 09-18 tablets by ity of tablet 00:00: 04:59 mouth [place] 00 :00 every 6 Medical (six) Branch hours. acetaminoph 2020- No [id number] 650mg Take 2 [facility] en 325 mg 9-17 09-18 tablets by ity of tablet 00:00: 04:59 mouth [place] 00 :00 every 6 Medical (six) Branch hours. acetaminoph 2020- No [id number] 650mg Take 2 [facility] en 325 mg 9-17 09-18 tablets by ity of tablet 00:00: 04:59 mouth [place] 00 :00 every 6 Medical (six) Branch hours. acetaminoph 2020- No [id number] 650mg Take 2 [facility] en 325 mg 9-17 09-18 tablets by ity of tablet 00:00: 04:59 mouth [place] 00 :00 every 6 Medical (six) Branch hours. acetaminoph 2020- No [id number] 650mg Take 2 [facility] en 325 mg 9-17 09-18 tablets by ity of tablet 00:00: 04:59 mouth [place] 00 :00 every 6 Medical (six) Branch hours. acetaminoph 2020- No [id number] 650mg Take 2 [facility] en 325 mg 9-17 09-18 tablets by ity of tablet 00:00: 04:59 mouth [place] 00 :00 every 6 Medical (six) Branch hours. acetaminoph 2020- No [id number] 650mg Take 2 [facility] en 325 mg 9-17 09-18 tablets by ity of tablet 00:00: 04:59 mouth [place] 00 :00 every 6 Medical (six) Branch hours. acetaminoph 20202020- No [id number] 650mg Take 2 [facility] en 325 mg 9-17 09-18 tablets by ity of tablet 00:00: 04:59 mouth [place] 00 :00 every 6 Medical (six) Branch hours. acetaminoph 2020- No [id number] 650mg Take 2 [facility] en 325 mg 9-17 09-18 tablets by ity of tablet 00:00: 04:59 mouth [place] 00 :00 every 6 Medical (six) Branch hours. acetaminoph 2020- No [id number] 650mg Take 2 [facility] en 325 mg 9-17 09-18 tablets by ity of tablet 00:00: 04:59 mouth [place] 00 :00 every 6 Medical (six) Branch hours. acetaminoph 2020- No [id number] 650mg Take 2 [facility] en 325 mg 9-17 09-18 tablets by ity of tablet 00:00: 04:59 mouth [place] 00 :00 every 6 Medical (six) Branch hours. acetaminoph 2020- No [id number] 650mg Take 2 [facility] en 325 mg 9-17 09-18 tablets by ity of tablet 00:00: 04:59 mouth [place] 00 :00 every 6 Medical (six) Branch hours. acetaminoph 2020- No [id number] 650mg Take 2 [facility] en 325 mg 9-17 09-18 tablets by ity of tablet 00:00: 04:59 mouth [place] 00 :00 every 6 Medical (six) Branch hours. acetaminoph 2020- No [id number] 650mg Take 2 [facility] en 325 mg 9-17 09-18 tablets by ity of tablet 00:00: 04:59 mouth [place] 00 :00 every 6 Medical (six) Branch hours. acetaminoph 2020- No [id number] 650mg Take 2 [facility] en 325 mg 9-17 09-18 tablets by ity of tablet 00:00: 04:59 mouth [place] 00 :00 every 6 Medical (six) Branch hours. acetaminoph 2020- No [id number] 650mg Take 2 [facility] en 325 mg 9-17 09-18 tablets by ity of tablet 00:00: 04:59 mouth [place] 00 :00 every 6 Medical (six) Branch hours. acetaminoph 2020-2020- No [id number] 650mg Take 2 [facility] en 325 mg 9-17 09-18 tablets by ity of tablet 00:00: 04:59 mouth [place] 00 :00 every 6 Medical (six) Branch hours. acetaminoph 2020- No [id number] 650mg Take 2 [facility] en 325 mg 9-17 09-18 tablets by ity of tablet 00:00: 04:59 mouth [place] 00 :00 every 6 Medical (six) Branch hours. acetaminoph 2020- No [id number] 650mg Take 2 [facility] en 325 mg 9-17 09-18 tablets by ity of tablet 00:00: 04:59 mouth [place] 00 :00 every 6 Medical (six) Branch hours. acetaminoph 2020- No [id number] 650mg Take 2 [facility] en 325 mg 9-17 09-18 tablets by ity of tablet 00:00: 04:59 mouth [place] 00 :00 every 6 Medical (six) Branch hours. acetaminoph 2020- No [id number] 650mg Take 2 [facility] en 325 mg 9-17 09-18 tablets by ity of tablet 00:00: 04:59 mouth [place] 00 :00 every 6 Medical (six) Branch hours. acetaminoph 2020- No [id number] 650mg Take 2 [facility] en 325 mg 9-17 09-18 tablets by ity of tablet 00:00: 04:59 mouth [place] 00 :00 every 6 Medical (six) Branch hours. acetaminoph 2020- No [id number] 650mg Take 2 [facility] en 325 mg 9-17 09-18 tablets by ity of tablet 00:00: 04:59 mouth [place] 00 :00 every 6 Medical (six) Branch hours. acetaminoph 2019- No [id number] 650mg Take 2 [facility] en 325 mg 9-17 12-16 tablets by ity of tablet 00:00: 00:00 mouth [place] 00 :00 every 6 Medical (six) Branch hours. loperamide 2019-2019- No [id number] 2mg Take 1 Univers 2 mg 9-17 11-04 capsule by ity of capsule 00:00: 00:00 mouth [place] 00 :00 daily. Medical Branch HYDROmorpho 2019- 2020- No [id number] 2mg Take 1 Uni [...] Medi ryann (8 %) IV 07/31/20 at Branc h Piggyback 4 0730, g Routine D5W 0.45% 2020-0 Yes IV Univers NaCl 07-31 Infusion, ity [...] 0.45% 2020-0 2020- No IV Univers NaCl 07-29-16 Infusion, ity of (1/2NS) 1 L 23:00: 11:38 at 100 [place] + KCL 20 00 :43 mL/hr, Medical mEq CONTINUOUS Branch , Starting Wed07/29/20 at 1800, Until Wed07/31/20 at 0638, Routine lactated 2020-0 2020- No 1000mL at 999 Univ ers ringers IV 07-29-14 mL/hr, ity of infusion 22:30: 22:14 1,000 mL, [place] 1,000 mL 00 :00 Intravenou Medic al s, ONCE, 1 Branch dose, Wed07/29/20 at 1730, Routine ibuprofen 2020-0 Yes 600mg 600 mg, Univ ers (IBU) - Oral, Q6H ity of tablet 600 17:00: ABX, First [place] mg 00 dose on [facility] 07/29/20 at 1200, Until Discontinu ed, Routine NaCl 0.9% 2020-0 Yes 10mL 10 mL, Univer s (NS) -14 Slow IV ity of injection 15:59: Push, PRN, [place] 10 mL 00 Starting [facility] 07/29/20 at 1059, Until Discontinu ed, Routine, line maintenanc e lidocaine 2020-0 Yes 5mL 5 mL, Univers 1% (PF) 07-29 Subcutaneo ity of (XYLOCAINE) 15:59: us, PRN, [place] injection 5 00 Starting Medi ryann mL [facility] 07/29/20 at 1059, Until Discontinu ed, Routine, Local anesthesia pantoprazol 2020-0 Yes 40mg 40 mg, Univ ers e 9-14 Oral, ity of (PROTONIX) 14:00: DAILY, [place] EC tablet 00 First dose Medi ryann 40 mg on [facility] Branch 07/29/20 at 0900, Until Discontinu ed, Routine acetaminoph 2020-0 Yes 650mg 650 mg, Un thor en - Oral, Q6H ity of (TYLENOL) 14:00: ABX, [...] dose [place] tablet 500 00 on Mon Medical mg 07/29/20 at Branch 0800, Until [...] ONCE, 1 Medic al NaCl 0.9% dose, [place] Bran h (NS) 07/28/20 at piggyback 1700, 100 [...]
Approved by: Per Policy (NPO Status) ALPRAZolam 2019-0 2020- No .5mg 0.5 mg, Uni vers (XANAX) 07-28 Oral, PRN, ity o f tablet 0.5 13:53: 16:59 1 dose, [place] mg 25 :00 Starting [facility] 07/28/20 at 0853, Until Discontinu ed, Routine, anxiety ALPRAZolam 2019-0 Yes 1mg 1 mg, Univer s (XANAX) 07-28 Oral, ity of tablet 1 mg 13:52: QHSPRN, [place] 54 Starting [facility] 07/28/20 at 0852, Until Discontinu ed, Routine, Insomnia, anxiety D5W 0.45% 2019- 2020- No IV Univers NaCl 07-28 Infusion, [...] Fri Branch 07/26/20 at 1830, Routine acetaminoph 2020-0 2020- No 1000mg 1,000 mg, [...] at 0900, Until Discontinu ed, Routine magnesium 2019- No 2g 2 g, IV Univ ers [...] 0653, Until Discontinu ed, 50 mL metoprolol 2019- No 5mg 5 mg, IV Un thor (LOPRESSOR) 07-26 Piggyback, i ty of injection 5 05:00: 21:03 Q6H, First [place] mg 00 :49 dose on Medical Fri Branch 07/26/20 at 0000, Until Discontinu ed, Routine morpHINE 30 2019- 2020- No Unive rs mg/30 mL 07-26 ity of (fixed 00:45: 12:37 [place] dose) [employer] 00 :04 Medical injection Branch HYDROmorpho 2019-0 2020- No .2mg 0.2 mg, Un thor ne 07-26 Slow IV ity of (DILAUDID) 00:22: 01:47 Push, [place] injection 54 :37 Q5MIN PRN, Medi ryann 0.2 mg 10 doses, Branch Starting [facility] 07/25/20 at 1922, Until [place] 07/25/20 at 2046, Routine, Pain (scale 7-10), PACU
Us e approved by (Faculty): PAIN SERVICE acetaminoph 2020- No 1000mg 1,000 mg, Univers en ADULT 07-26 IV ity of ([facility]) 00:21: 00:44 Infusion, [place] injection 16 [...] Univers en ADULT 07-25 IV ity of ([facility]) 12:45: 12:44 Infusion, [place] injection 00 :00 Administer Medi ryann 1,000 mg over 15 Branch Minutes, Q8H ABX, 3 doses, First dose (after last reorder) on [place] 07/25/20 at 0745, Last dose on Wed07/25/20 at 2345, Routine
Indicatio n: Non-periop erative [...]
Approved by: Per Policy (NPO Status) piperacilli 2019-0 2020- No 3.375g 3.375 g, Univers n-tazobacta [...] tion of Therapy: 7 days D5W 0.45% 2019-0 2020- No IV Univers NaCl 07-24 Infusion, ity of (1/2NS) 1 L 06:30: 12:39 at 150 [place] + KCL 20 00 :19 mL/hr, Medical mEq CONTINUOUS Branch , Starting 07/24/20 at 0130, Until 07/28/20 at 0739, Routine morpHINE 2019-0 2020- No 4mg 4 mg, Slow Un thor injection 4 07-24 IV Push, ity of mg 06:19: 14:48 Q3HPRN, [place] 51 :46 Starting Medical 07/24/20 Branch at 0119, Until 07/28/20 at 0948, Routine, Pain (scale 7-10) morpHINE 2019-0 2020- No 4mg 4 mg, Slow Un thor injection 4 07-24 IV Push, ity of mg 03:45: 02:42 ONCE, 1 [place] 00 :00 dose, [facility] 07/23/20 at Branch 2245, STAT NaCl 0.9% 2019-0 2020- No 500mL at 999 Univ ers (NS) bolus 07-24 mL/hr, 500 it y of infusion 03:45: 03:41 mL, IV [place] 500 mL 00 :00 Infusion, Medical ONCE, 1 [place] dose, Tu 07/23/20 at 2245, STAT NaCl 0.9% 2020-0 2020- No 1000mL at 150 Uni vers (NS) IV 07-24 mL/hr, ity of infusion 03:45: 09:49 Intravenou [place] 1,000 mL 00 :01 s, Medical CONTINUOUS [place] , Starting 07/23/20 at 2245, Until 07/24/20 at 0449, Routine proMETHazin 2019-0 2020- No 12.5mg 12.5 mg, Univers e 07-24 IV ity of (PHENERGAN) 01:30: 01:30 Piggyback, [place] 12.5 mg in 00 :00 ONCE, 1 Medica l NaCl 0.9% dose, [facility] Bran h (NS) 50 mL 07/23/20 at piggyback 2030, 50 mL morpHINE 2020-0 2020- No 4mg 4 mg, Slow Un htor injection 4 07-24 IV Push, ity of mg 01:15: 00:22 ONCE, 1 [place] 00 :00 dose, [facility] 07/23/20 at Branch 2015, STAT morpHINE 2020-0 2020- No 4mg 4 mg, Slow Un thor injection 4 07-23 IV Push, ity of mg 22:30: 21:20 ONCE, 1 [place] 00 :00 dose, [facility] 07/23/20 at Branch 1730, STAT piperacilli 2020-0 2020- No 3.375g 3.375 g, Univers n-tazobacta 07-23 IV ity of m (ZOSYN) 22:30: 22:14 Piggyback, [place] 3.375 g in 00 :00 ONCE, 1 Medica l NaCl 0.9% dose, [facility] Bran h (NS) 100 mL 07/23/20 at MINI-BAG 1730, 100 mL
Reas on for Anti-Infec tive: Documented Infection< br>Documen carl Infection Site: Abdominal< br>Duratio n of Therapy: 7 days iohexol 2019-0 2020- No 114mL 114 mL, Unive rs (OMNIPAQUE 07-23 Intravenou it y of 350 20:46: 20:47 s, ONCE, 1 [place] BULK-150 00 :00 dose, Tue Medica l mL) 07/23/20 at Branch injection 1600, 114 mL Routine methylPREDN 2019- No 40mg 40 mg, IV Univers ISolone sod 07-23 Piggyback, i ty of succ 19:15: 19:10 ONCE, 1 [place] (SOLU-MEDRO 00 :00 dose, Tue Med ical [...] ity of mg 19:15: 18:59 ONCE, 1 [place] 00 :00 dose, e Medical 07/23/20 at Branch 1415, STAT famotidine 2019- No 20mg 20 mg, Univ ers (PEPCID 07-23 Intravenou ity o f (PF)) 18:45: 19:02 s, ONCE, 1 [place] injection 00 :00 dose, Tue Medic al 20 mg 07/23/20 at Branch 1345, LUISA proMETHazin 2019- No 12.5mg 12.5 mg, Univers e 07-23 IV ity of (PHENERGAN) 18:45: 19:01 Piggyback, [place] 12.5 mg in 00 :00 ONCE, 1 Medica l NaCl 0.9% dose, Tue Branc h (NS) 50 mL 07/23/20 at piggyback 1345, 50 mL NaCl 0.9% 2020-0 2020- No 1000mL at 999 Uni vers (NS) bolus 07-23 09-08 mL/hr, ity of infusion 17:45: 22:20 1,000 mL, [place] 1,000 mL 00 :00 IV Medical Infusion, Branch ONCE, 1 dose, 07/23/20 at 1245, LUISA ALPRAZolam 2018-11 Yes 2mg [...] daily. Branch ease suspension metoprolol 2018-11 Yes [id number] 25mg Take 1 Un thor tartrate 25 0-10 tablet by ity of mg tablet 00:00: mouth 2 [place] 00 (two) Medical times Branch daily. metoprolol 2018-11 Yes [id number] 25mg Take 1 Un thor tartrate 25 0-10 tablet by ity of mg tablet 00:00: mouth 2 [place] 00 (two) Medical times Branch daily. metoprolol 2018-11 Yes [id number] 25mg Take 1 Un thor tartrate 25 0-10 tablet by ity of mg tablet 00:00: mouth 2 [place] 00 (two) Medical times Branch daily. acetaminoph 2018-11 Yes [id number] 1{tbl} Take 1 Univers en-codeine 0-10 tablet by ity of (TYLENOL-CO 00:00: mouth [place] DEINE #4) 00 every 4 Medical 300-60 mg (four) Branch tablet hours as needed for Pain. levoFLOXaci 2018-11 Yes [id number] 750mg Take 1 Univers n 750 mg 0-10 tablet by ity of tablet 00:00: mouth [place] 00 every 24 Medical (twenty-fo Branch ur) hours. metoprolol 2018-11 Yes [id number] 25mg Take 1 Un thor tartrate 25 0-10 tablet by ity of mg tablet 00:00: mouth (two) Medical times Branch daily. metoprolol 2018-11 Yes [id number] 25mg Take 1 Un thor tartrate 25 0-10 tablet by ity of mg tablet 00:00: mouth (two) Medical times Branch daily. metoprolol 2018-11 Yes [id number] 25mg Take 1 Un thor tartrate 25 0-10 tablet by ity of mg tablet 00:00: mouth (two) Medical times Branch daily. metoprolol 2018-11 Yes [id number] 25mg Take 1 Un thor tartrate 25 0-10 tablet by ity of mg tablet 00:00: mouth (two) Medical times Branch daily. metoprolol 2018-11 Yes [id number] 25mg Take 1 Un thor tartrate 25 0-10 tablet by ity of mg tablet 00:00: mouth (two) Medical times Branch daily. metoprolol 2018-11 Yes [id number] 25mg Take 1 Un thor tartrate 25 0-10 tablet by ity of mg tablet 00:00: mouth (two) Medical times Branch daily. metoprolol 2018-11 Yes [id number] 25mg Take 1 Un thor tartrate 25 0-10 tablet by ity of mg tablet 00:00: mouth (two) Medical times Branch daily. metoprolol 2018-11 Yes [id number] 25mg Take 1 Un thor tartrate 25 0-10 tablet by ity of mg tablet 00:00: mouth (two) Medical times Branch daily. metoprolol 2018-11 Yes [id number] 25mg Take 1 Un thor tartrate 25 0-10 tablet by ity of mg tablet 00:00: mouth (two) Medical times Branch daily. metoprolol 2018-11 Yes [id number] 25mg Take 1 Un thor tartrate 25 0-10 tablet by ity of mg tablet 00:00: mouth (two) Medical times Branch daily. metoprolol 2018-11 Yes [id number] 25mg Take 1 Un thor tartrate 25 0-10 tablet by ity of mg tablet 00:00: mouth (two) Medical times Branch daily. metoprolol 2018-11 Yes [id number] 25mg Take 1 Un thor tartrate 25 0-10 tablet by ity of mg tablet 00:00: mouth (two) Medical times Branch daily. metoprolol 2018-11 Yes [id number] 25mg Take 1 Un thor tartrate 25 0-10 tablet by ity of mg tablet 00:00: mouth (two) Medical times Branch daily. metoprolol 2018-11 Yes [id number] 25mg Take 1 Un thor tartrate 25 0-10 tablet by ity of mg tablet 00:00: mouth (two) Medical times Branch daily. metoprolol 2018-11 Yes [id number] 25mg Take 1 Un thor tartrate 25 0-10 tablet by ity of mg tablet 00:00: mouth (two) Medical times Branch daily. metoprolol 2018-11 Yes [id number] 25mg Take 1 Un thor tartrate 25 0-10 tablet by ity of mg tablet 00:00: mouth (two) Medical times Branch daily. metoprolol 2018-11 Yes [id number] 25mg Take 1 Un thor tartrate 25 0-10 tablet by ity of mg tablet 00:00: mouth (two) Medical times Branch daily. metoprolol 2018-11 Yes [id number] 25mg Take 1 Un thor tartrate 25 0-10 tablet by ity of mg tablet 00:00: mouth (two) Medical times Branch daily. metoprolol 2018-11 Yes [id number] 25mg Take 1 Un thor tartrate 25 0-10 tablet by ity of mg tablet 00:00: mouth (two) Medical times Branch daily. metoprolol 2018-11 Yes [id number] 25mg Take 1 Un thor tartrate 25 0-10 tablet by ity of mg tablet 00:00: mouth (two) Medical times Branch daily. metoprolol 2018-11 Yes [id number] 25mg Take 1 Un thor tartrate 25 0-10 tablet by ity of mg tablet 00:00: mouth (two) Medical times Branch daily. metoprolol 2018-11 Yes [id number] 25mg Take 1 Un thor tartrate 25 0-10 tablet by ity of mg tablet 00:00: mouth (two) Medical times Branch daily. metoprolol 2018-11 Yes [id number] 25mg Take 1 Un thor tartrate 25 0-10 tablet by ity of mg tablet 00:00: mouth (two) Medical times Branch daily. metoprolol 2018-11 Yes [id number] 25mg Take 1 Un thor tartrate 25 0-10 tablet by ity of mg tablet 00:00: mouth (two) Medical times Branch daily. metoprolol 2018-11 Yes [id number] 25mg Take 1 Un thor tartrate 25 0-10 tablet by ity of mg tablet 00:00: mouth (two) Medical times Branch daily. metoprolol 2018-11 Yes [id number] 25mg Take 1 Un thor tartrate 25 0-10 tablet by ity of mg tablet 00:00: mouth (two) Medical times Branch daily. metoprolol 2018-11 Yes [id number] 25mg Take 1 Un thor tartrate 25 0-10 tablet by ity of mg tablet 00:00: mouth (two) Medical times Branch daily. metoprolol 2018-11 Yes [id number] 25mg Take 1 Un thor tartrate 25 0-10 tablet by ity of mg tablet 00:00: mouth (two) Medical times Branch daily. metoprolol 2018-11 Yes [id number] 25mg Take 1 Un thor tartrate 25 0-10 tablet by ity of mg tablet 00:00: mouth (two) Medical times Branch daily. metoprolol 2018-11 Yes [id number] 25mg Take 1 Un thor tartrate 25 0-10 tablet by ity of mg tablet 00:00: mouth (two) Medical times Branch daily. metoprolol 2018-11 Yes [id number] 25mg Take 1 Un thor tartrate 25 0-10 tablet by ity of mg tablet 00:00: mouth (two) Medical times Branch daily. metoprolol 2018-11 Yes [id number] 25mg Take 1 Un thor tartrate 25 0-10 tablet by ity of mg tablet 00:00: mouth (two) Medical times Branch daily. metoprolol 2018-11 Yes [id number] 25mg Take 1 Un thor tartrate 25 0-10 tablet by ity of mg tablet 00:00: mouth (two) Medical times Branch daily. metoprolol 2018-11 Yes [id number] 25mg Take 1 Un thor tartrate 25 0-10 tablet by ity of mg tablet 00:00: mouth (two) Medical times Branch daily. metoprolol 2018-11 Yes [id number] 25mg Take 1 Un thor tartrate 25 0-10 tablet by ity of mg tablet 00:00: mouth (two) Medical times Branch daily. metoprolol 2018-11 Yes [id number] 25mg Take 1 Un thor tartrate 25 0-10 tablet by ity of mg tablet 00:00: mouth (two) Medical times Branch daily. metoprolol 2018-11 Yes [id number] 25mg Take 1 Un thor tartrate 25 0-10 tablet by ity of mg tablet 00:00: mouth (two) Medical times Branch daily. metoprolol 2018-11 Yes [id number] 25mg Take 1 Un thor tartrate 25 0-10 tablet by ity of mg tablet 00:00: mouth (two) Medical times Branch daily. metoprolol 2018-11 Yes [id number] 25mg Take 1 Un thor tartrate 25 0-10 tablet by ity of mg tablet 00:00: mouth (two) Medical times Branch daily. metoprolol 2018-11 Yes [id number] 25mg Take 1 Un thor tartrate 25 0-10 tablet by ity of mg tablet 00:00: mouth (two) Medical times Branch daily. metoprolol 2018-11 Yes [id number] 25mg Take 1 Un thor tartrate 25 0-10 tablet by ity of mg tablet 00:00: mouth (two) Medical times Branch daily. metoprolol 2018-11 2020- No [id number] 25mg Take 1 U nivers tartrate 25 0-10 12-16 tablet by it y of mg tablet 00:00: 00:00 mouth 2 [place] 00 :00 (two) Medical times Branch daily. acetaminoph 2018-11 2020- No [id number] 1{tbl} Take 1 Univers en-codeine 0-10 09-17 tablet by ity of (TYLENOL-CO 00:00: 00:00 mouth [place] DEINE #4) 00 :00 every 4 Medical 300-60 mg (four) Branch tablet hours as needed for Pain. levoFLOXaci 2018-11 2020- No [id number] 750mg Take 1 Univers n 750 mg 0-10 09-17 tablet by ity o f tablet 00:00: 00:00 mouth [place] 00 :00 every 24 Medical (twenty-fo Branch ur) hours. proMETHazin 2018-11 Yes [id number] 25mg Take 1 Univers e 25 mg 0-04 tablet by ity of tablet 00:00: mouth [place] 00 every 6 Medical (six) Branch hours as needed for Nausea and Vomiting (N/V). proMETHazin 2018-11 Yes [id number] 25mg Take 1 Univers e 25 mg 0-04 tablet by ity of tablet 00:00: mouth [place] 00 every 6 Medical (six) Branch hours as needed for Nausea and Vomiting (N/V). proMETHazin 2018-11 Yes [id number] 25mg Take 1 Univers e 25 mg 0-04 tablet by ity of tablet 00:00: mouth [place] 00 every 6 Medical (six) Branch hours as needed for Nausea and Vomiting (N/V). proMETHazin 2018-11 Yes [id number] 25mg Take 1 Univers e 25 mg 0-04 tablet by ity of tablet 00:00: mouth [place] 00 every 6 Medical (six) Branch hours as needed for Nausea and Vomiting (N/V). proMETHazin 2018-11 Yes [id number] 25mg Take 1 Univers e 25 mg 0-04 tablet by ity of tablet 00:00: mouth [place] 00 every 6 Medical (six) Branch hours as needed for Nausea and Vomiting (N/V). proMETHazin 2018-11 Yes [id number] 25mg Take 1 Univers e 25 mg 0-04 tablet by ity of tablet 00:00: mouth [place] 00 every 6 Medical (six) Branch hours as needed for Nausea and Vomiting (N/V). proMETHazin 2018-11 Yes [id number] 25mg Take 1 Univers e 25 mg 0-04 tablet by ity of tablet 00:00: mouth [place] 00 every 6 Medical (six) Branch hours as needed for Nausea and Vomiting (N/V). proMETHazin 2018-11 Yes [id number] 25mg Take 1 Univers e 25 mg 0-04 tablet by ity of tablet 00:00: mouth [place] 00 every 6 Medical (six) Branch hours as needed for Nausea and Vomiting (N/V). proMETHazin 2018-11 Yes [id number] 25mg Take 1 Univers e 25 mg 0-04 tablet by ity of tablet 00:00: mouth [place] 00 every 6 Medical (six) Branch hours as needed for Nausea and Vomiting (N/V). proMETHazin 2018-11 Yes [id number] 25mg Take 1 Univers e 25 mg 0-04 tablet by ity of tablet 00:00: mouth [place] 00 every 6 Medical (six) Branch hours as needed for Nausea and Vomiting (N/V). proMETHazin 2018-11 Yes [id number] 25mg Take 1 Univers e 25 mg 0-04 tablet by ity of tablet 00:00: mouth [place] 00 every 6 Medical (six) Branch hours as needed for Nausea and Vomiting (N/V). proMETHazin 2018-11 Yes [id number] 25mg Take 1 Univers e 25 mg 0-04 tablet by ity of tablet 00:00: mouth [place] 00 every 6 Medical (six) Branch hours as needed for Nausea and Vomiting (N/V). proMETHazin 2018-11 Yes [id number] 25mg Take 1 Univers e 25 mg 0-04 tablet by ity of tablet 00:00: mouth [place] 00 every 6 Medical (six) Branch hours as needed for Nausea and Vomiting (N/V). proMETHazin 2018-11 Yes [id number] 25mg Take 1 Univers e 25 mg 0-04 tablet by ity of tablet 00:00: mouth [place] 00 every 6 Medical (six) Branch hours as needed for Nausea and Vomiting (N/V). proMETHazin 2018-11 Yes [id number] 25mg Take 1 Univers e 25 mg 0-04 tablet by ity of tablet 00:00: mouth [place] 00 every 6 Medical (six) Branch hours as needed for Nausea and Vomiting (N/V). proMETHazin 2018-11 Yes [id number] 25mg Take 1 Univers e 25 mg 0-04 tablet by ity of tablet 00:00: mouth [place] 00 every 6 Medical (six) Branch hours as needed for Nausea and Vomiting (N/V). proMETHazin 2018-11 Yes [id number] 25mg Take 1 Univers e 25 mg 0-04 tablet by ity of tablet 00:00: mouth [place] 00 every 6 Medical (six) Branch hours as needed for Nausea and Vomiting (N/V). proMETHazin 2018-11 Yes [id number] 25mg Take 1 Univers e 25 mg 0-04 tablet by ity of tablet 00:00: mouth [place] 00 every 6 Medical (six) Branch hours as needed for Nausea and Vomiting (N/V). proMETHazin 2018-11 Yes [id number] 25mg Take 1 Univers e 25 mg 0-04 tablet by ity of tablet 00:00: mouth [place] 00 every 6 Medical (six) Branch hours as needed for Nausea and Vomiting (N/V). proMETHazin 2018-11 Yes [id number] 25mg Take 1 Univers e 25 mg 0-04 tablet by ity of tablet 00:00: mouth [place] 00 every 6 Medical (six) Branch hours as needed for Nausea and Vomiting (N/V). proMETHazin 2018-11 Yes [id number] 25mg Take 1 Univers e 25 mg 0-04 tablet by ity of tablet 00:00: mouth [place] 00 every 6 Medical (six) Branch hours as needed for Nausea and Vomiting (N/V). proMETHazin 2018-11 Yes [id number] 25mg Take 1 Univers e 25 mg 0-04 tablet by ity of tablet 00:00: mouth [place] 00 every 6 Medical (six) Branch hours as needed for Nausea and Vomiting (N/V). proMETHazin 2018-11 Yes [id number] 25mg Take 1 Univers e 25 mg 0-04 tablet by ity of tablet 00:00: mouth [place] 00 every 6 Medical (six) Branch hours as needed for Nausea and Vomiting (N/V). proMETHazin 2018-11 Yes [id number] 25mg Take 1 Univers e 25 mg 0-04 tablet by ity of tablet 00:00: mouth [place] 00 every 6 Medical (six) Branch hours as needed for Nausea and Vomiting (N/V). proMETHazin 2018-11 Yes [id number] 25mg Take 1 Univers e 25 mg 0-04 tablet by ity of tablet 00:00: mouth [place] 00 every 6 Medical (six) Branch hours as needed for Nausea and Vomiting (N/V). proMETHazin 2018-11 Yes [id number] 25mg Take 1 Univers e 25 mg 0-04 tablet by ity of tablet 00:00: mouth [place] 00 every 6 Medical (six) Branch hours as needed for Nausea and Vomiting (N/V). proMETHazin 2019-1 2020- No [id number] 25mg Take 1 Univers e 25 mg 009-18 tablet by ity of tablet 00:00: 00:00 mouth [place] 00 :00 every 6 Medical (six) Branch hours as needed for Nausea and Vomiting (N/V). proMETHazin 2018- No 25mg 25 mg, IV Univers e 06-15 Piggyback, ity of (PHENERGAN) 20:15: 19:30 [place] 00 :00 dose, [facility] NaCl 0.9% 06/15/[address] [place] h (NS) 50 mL 1515, 50 piggyback mL morpHINE 2018- No 4mg 4 mg, Slow Un thor injection 4 06-15 IV Push, ity of mg 20:15: 19:30 ONCE, 1 [place] 00 :00 dose, [facility] Medical 06/15/19 at Branch 1515, STAT iohexol 2018- No 120mL 120 mL, Unive rs (OMNIPAQUE 06-15 Intravenou it y of 350 19:00: 18:36 s, ONCE, 1 [place] BULK-150 00 :00 dose, [facility] l mL) 06/15/19 at Branch injection 1400, 120 mL Routine maalox:diph 2018- No 15mL 15 mL, Uni vers enhydrAMINE 06-15 Oral, ity of :lidocaine2 18:45: 17:54 [place]CE, 1 [place] %viscous 00 :00 dose, [facility] l 1:1:1: 06/15/19 at Branch suspension 1345, (COMPOUNDED Routine ) diphenhydrA 2018- No 25mg 25 mg, Uni vers MINE 06-15 Slow IV ity of (BENADRYL) 18:45: 17:47 Push, [place] injection 00 :00 ONCE, 1 Medical 25 mg dose, [facility] Branch 06/15/19 at 1345, STAT famotidine 2018- No 20mg 20 mg, Univ ers (PEPCID 06-15 Slow IV ity of (PF)) 18:45: 17:47 Push, [place] injection 00 :00 ONCE, 1 Medical 20 mg dose, [facility] Branch 06/15/19 at 1345, LUISA morpHINE 2018- No 4mg 4 mg, Slow Un thor injection 4 06-15 IV Push, ity of mg 18:45: 17:54 ONCE, 1 [place] 00 :00 dose, [facility] 06/15/19 at Branch 1345, STAT proMETHazin 2019- No 25mg 25 mg, IV Univers e 06-15 Piggyback, ity of (PHENERGAN) 18:45: 17:54 [place] 1 [place] in 00 :00 dose, [facility] Medica l NaCl 0.9% 06/15/19 at Bran h (NS) 50 mL 1345, 50 piggyback mL NaCl 0.9% 2018- No 1000mL at 999 Uni vers (NS) bolus 06-15 mL/hr, ity of infusion 17:00: 20:03 1,000 mL, Juan as 1,000 mL 00 :00 IV Medical Infusion, Branch ONCE, 1 dose, [facility] 06/15/19 at 1200, LUISA proMETHazin Yes [id number] 25mg Take 1 U nivers e 25 mg 06-15 tablet by ity of tablet 00:00: mouth [place] 00 every 6 Medical (six) Branch hours as needed for Nausea and Vomiting (N/V). famotidine 2019- No [id number] 40mg Take 1 U nivers 40 mg 06-15 tablet by ity of tablet 00:00: 04:59 mouth [place] 00 :00 daily for Medical 14 days. Branch predniSONE Yes [id number] Take 1 U nivers 10 mg 4-26 tablet ity of tablet 00:00: daily. [place] 00 Medical Branch proMETHazin Yes [id number] 25mg Insert 1 Univers e 25 mg [...] 2 it y of etamine 19:37: (two) [place] (ADDERALL) 38 times Medical 30 mg daily. [...] tablet by ity of (TYLENOL 00:00: mouth [place] #3) 300-30 00 every 6 Medica l [...] Nausea and Vomiting (N/V). proMETHazin 2010-11 Yes [id number] 12.5mg Take 1 Tab Univers e 2-23 by mouth ity of (PHENERGAN) 00:00: every 6 [place] as 12.5 mg 00 (six) Medical tablet hours as Branch needed for Nausea and Vomiting. Vital Signs Vital Name Observation Time Observation Value Comments Source Systolic blood 2020-10-30 92 mm[Hg] University of pressure 22:01:00 [facility] Diastolic blood 2020-10-30 65 mm[Hg] University o f pressure 22:01:00 [place] [facility] Heart rate 2020-10-30 104 /min University of 22:01:00 [place] [facility] Body temperature 2020-10-30 36.83 Tayla University of 22:01:00 [place] [facility] Respiratory rate 2020-10-30 18 /min University of 22:01:00 [facility] Branch Oxygen saturation 2020-10-30 96 /min University of in Arterial blood 22:01:00 [place] [facility]i ryann by Pulse oximetry Branch Body weight 2020-10-24 61.2 kg University of 19:35:00 [place] [facility] BMI 2020-10-24 21.13 kg/m2 University of 19:35:00 [facility] Branch Systolic blood 2020-10-30 92 mm[Hg] University of pressure 22:01:00 [facility] Branch Diastolic blood 2020-10-30 65 mm[Hg] University o f pressure 22:01:00 [place] [facility] Heart rate 2020-10-30 104 /min University of :01:00 [facility] Body temperature 2020-10-30 36.83 Tayla University of :01:00 [place] [facility] Respiratory rate 2020-10-30 18 /min University of :01:00 [facility] Branch Oxygen saturation 2020-10-30 96 /min University of in Arterial blood 22:01:00 [place] Medi ryann by Pulse oximetry Branch Body weight 2020-10-24 61.2 kg University of 19:35:00 [facility] BMI 2020-10-24 21.13 kg/m2 University of 19:35:00 [facility] Branch Systolic blood 2020-10-19 92 mm[Hg] University of pressure 19:08:00 [place] [facility] Diastolic blood 2020-10-19 63 mm[Hg] University o f pressure 19:08:00 [place] [facility] Heart rate 2020-10-19 98 /min University of 19:08:00 [facility] Branch Body temperature 2020-10-19 36.17 Tayla University of 19:08:00 [place] [facility] Respiratory rate 2020-10-19 18 /min University of 19:08:00 [facility] Branch Oxygen saturation 2020-10-19 100 /min University of in Arterial blood 19:08:00 [place] Medi ryann by Pulse oximetry Branch Body height 2020-10-14 170.2 cm University of 12:21: [place] [facility] Body weight 2020-10-14 55.1 kg University of 12:21:00 [facility] BMI 2020-10-14 19.03 kg/m2 University of 12:21:00 [facility] Systolic blood 2020-10-19 92 mm[Hg] University of pressure 19:08:00 [facility] Branch Diastolic blood 2020-10-19 63 mm[Hg] University o f pressure 19:08:00 [facility] Heart rate 2020-10-19 98 /min University of 19:08:00 [facility] Body temperature 2020-10-19 36.17 Tayla University of 19:08:00 [facility] Respiratory rate 2020-10-19 18 /min University of 19:08:00 [facility] Oxygen saturation 2020-10-19 100 /min University of in Arterial blood 19:08:00 [facility] ryann by Pulse oximetry Branch Body height 2020-10-14 170.2 cm University of 12:21: [facility] Body weight 2020-10-14 55.1 kg University of 12:21:00 [facility] BMI 2020-10-14 19.03 kg/m2 University of 12:21:00 [facility] Respiratory rate 2020-10-02 20 /min University of 06:35:00 [facility] Oxygen saturation 2020-10-02 97 /min University of in Arterial blood 06:35:00 [facility] by Pulse oximetry Branch Systolic blood 2020-10-02 122 mm[Hg] University of pressure 04:53:00 [facility] Diastolic blood 2020-10-02 88 mm[Hg] University o f pressure 04:53:00 [facility] Heart rate 2020-10-02 133 /min University of 04:53:00 [facility] Body temperature 2020-10-02 37.28 Tayla University of 04:53:00 [facility] Body height 2020-10-02 170 cm University of 04:53:00 [facility] Body weight 2020-10-02 58.968 kg University of 04:53:00 [facility] BMI 2020-10-02 20.40 kg/m2 University of 04:53:00 [facility] Systolic blood 2020-09-27 98 mm[Hg] University of pressure 15:38:00 [facility] Diastolic blood 2020-09-27 64 mm[Hg] University o f pressure 15:38:00 [facility] Heart rate 2020-09-27 86 /min University of 15:38:00 [facility] Body temperature 2020-09-27 37.06 Tayla University of 15:38:00 [facility] Body height 2020-09-27 170.2 cm University of 15:38:00 [facility] Body weight 2020-09-27 59.104 kg University of 15:38:00 [facility] BMI 2020-09-27 20.41 kg/m2 University of 15:38:00 [facility] Oxygen saturation 2020-09-27 100 /min University of in Arterial blood 15:38:00 [facility] ryann by Pulse oximetry Branch Systolic blood 2020-09-18 106 mm[Hg] University of pressure 21:45:00 [facility] Diastolic blood 2020-09-18 68 mm[Hg] University o f pressure 21:45:00 [facility] Heart rate 2020-09-18 101 /min University of :45:00 [facility] Body temperature 2020-09-18 36.22 Tayla University of 21:45:00 [facility] Respiratory rate 2020-09-18 18 /min University of 21:45:00 [facility] Oxygen saturation 2020-09-18 98 /min University of in Arterial blood 21:45:00 [facility] by Pulse oximetry Branch Body weight 2020-09-18 61.236 kg With one University of 10:59:00 blanket and [facility]. Branch BMI 2020-09-18 21.14 kg/m2 University of 10:59:00 [facility] Body height 2020-09-13 170.2 cm University of 20:47:00 [facility] Systolic blood 2020-09-01 129 mm[Hg] University of pressure 11:00:00 [facility] Diastolic blood 2020-09-01 86 mm[Hg] University o f pressure 11:00:00 [facility] Heart rate 2020-09-01 102 /min University of 11:00:00 [facility] Body temperature 2020-09-01 37.67 Tayla University of 10:00:00 [facility] Respiratory rate 2020-09-01 18 /min University of 10:00:00 [facility] Oxygen saturation 2020-09-01 100 /min University of in Arterial blood 10:00:00 [facility] ryann by Pulse oximetry Branch Body weight 2020-09-01 58.968 kg University of 06:45:00 [facility] BMI 2020-09-01 20.36 kg/m2 University of 06:45:00 [facility] Systolic blood 2020-08-24 124 mm[Hg] University of pressure 00:00:00 [place] [facility] Diastolic blood 2020-08-24 90 mm[Hg] University o f pressure 00:00:00 [place] [facility] Heart rate 2020-08-24 89 /min University of 00:00:00 [place] [facility] Respiratory rate 2020-08-24 20 /min University of 00:00:00 [place] [facility] Oxygen saturation 2020-08-24 100 /min University of in Arterial blood 00:00:00 [place] [facility]i ryann by Pulse oximetry Branch Body temperature 2020-08-23 36.61 Tayla University of 22:27:00 [place] [facility] Body weight 2020-08-23 58.968 kg University of 22:27:00 [facility] Branch BMI 2020-08-23 20.36 kg/m2 University of 22:27:00 [facility] Branch Systolic blood 2020-08-20 117 mm[Hg] University of pressure 16:22: [facility] Diastolic blood 2020-08-20 86 mm[Hg] University o f pressure 16:22:00 [facility] Branch Heart rate 2020-08-20 129 /min University of 16:22:00 [place] [facility] Body temperature 2020-08-20 36.89 Tayla University of 16:21:00 [place] [facility] Respiratory rate 2020-08-20 16 /min University of 16:21:00 [facility] Branch Body height 2020-08-20 170.2 cm University of 16:21:00 [place] [facility] Body weight 2020-08-20 57.607 kg University of 16:21:00 [facility] BMI 2020-08-20 19.89 kg/m2 University of 16:21:00 [facility] Branch Systolic blood 2020-08-18 115 mm[Hg] University of pressure 04:00:00 [place] [facility] Diastolic blood 2020-08-18 79 mm[Hg] University o f pressure 04:00:00 [place] [facility] Heart rate 2020-08-18 104 /min University of 04:00:00 [place] [facility] Respiratory rate 2020-08-18 17 /min University of 04:00:00 [facility] Branch Oxygen saturation 2020-08-18 100 /min University of in Arterial blood 04:00:00 [place] Medi ryann by Pulse oximetry Branch Body temperature 2020-08-18 37.06 Tayla University of 00:44:00 [place] [facility] Body weight 2020-08-18 56.7 kg University of 00:44:00 [facility] BMI 2020-08-18 19.58 kg/m2 University of 00:44:00 [facility] Branch Systolic blood 2020-08-09 153 mm[Hg] University of pressure 15:40:00 [facility] Branch Diastolic blood 2020-08-09 83 mm[Hg] University o f pressure 15:40:00 [facility] Branch Heart rate 2020-08-09 143 /min University of 15:40:00 [facility] Body temperature 2020-08-09 36.83 Tayla University of 15:40:00 [facility] Branch Body height 2020-08-09 170.2 cm University of 15:40:00 [facility] Body weight 2020-08-09 56.473 kg University of 15:40:00 [facility] BMI 2020-08-09 19.50 kg/m2 University of 15:40:00 [facility] Oxygen saturation 2020-08-09 100 /min University of in Arterial blood 15:40:00 [facility] ryann by Pulse oximetry Branch Systolic blood 2020-08-01 126 mm[Hg] University of pressure 13:03:00 [facility] Diastolic blood 2020-08-01 76 mm[Hg] University o f pressure 13:03:00 [facility] Heart rate 2020-08-01 119 /min University of 13:03:00 [facility] Body temperature 2020-08-01 36.67 Tayla University of 13:03:00 [facility] Branch Respiratory rate 2020-08-01 16 /min University of 13:03:00 [facility] Oxygen saturation 2020-08-01 99 /min University of in Arterial blood 13:03:00 [facility] ryann by Pulse oximetry Branch Body weight 2020-07-23 70.308 kg University of 16:57:00 [facility] BMI 2020-07-23 24.28 kg/m2 University of 16:57:00 [facility] Systolic blood 2019-06-15 110 mm[Hg] University of pressure 18:22:00 [facility] Branch Diastolic blood 2019-06-15 57 mm[Hg] University o f pressure 18:22:00 [facility] Branch Heart rate 2019-06-15 91 /min University of 18:22:00 [facility] Branch Respiratory rate 2019-06-15 18 /min University of 18:22:00 [facility] Branch Oxygen saturation 2019-06-15 98 /min University of in Arterial blood 18:22:00 [place] [facility]i ryann by Pulse oximetry Branch Body temperature 2019-06-15 38 Tayla [facility] 16:54:00 [facility] Body weight 2019-06-15 83.915 kg [facility] 16:54:00 [facility] BMI 2019-06-15 28.98 kg/m2 [facility] 16:54:00 [facility] Procedures Procedure Date / Time Performing Clinician Source Performed AUTHORIZATION FOR RELEASE 2021-06-18 05:01:00 Doctor Unassigned, [facility] Name [facility] EXTERNAL PROVIDER RECORDS 2020-11-20 06:01:00 Doctor Unassigned, [facility] Name [facility] CBC WITH DIFF 2020-10-29 13:10:00 Sravan [facility] MAGNESIUM 2020-10-29 09:36:00 [facility] BASIC METABOLIC PANEL 2020-10-29 09:36:00 [facility] (NA, K, CL, CO2, GLUCOSE, [facility] Branch BUN, CREATININE, CA) PHOSPHORUS 2020-10-28 10:00:00 Ehsan [facility] MAGNESIUM 2020-10-28 10:00:00 [facility] BASIC METABOLIC PANEL 2020-10-28 10:00:00 [facility] (NA, K, CL, CO2, GLUCOSE, [facility] BUN, CREATININE, CA) CBC WITH DIFF 2020-10-28 09:59:00 [facility] MAGNESIUM 2020-10-27 07:05:00 Ehsan [facility] BASIC METABOLIC PANEL 2020-10-27 07:05:00 Ehsan [facility] (NA, K, CL, CO2, GLUCOSE, Medica l Branch BUN, CREATININE, CA) CBC WITH DIFF 2020-10-27 07:05:00 Bandana [facility] URINALYSIS 2020-10-27 07:05:00 Suraj [facility] URINE CULTURE 2020-10-27 07:05:00 Suraj [facility] CBC WITH DIFF 2020-10-26 11:43:00 Bandana [facility] PHOSPHORUS 2020-10-26 03:41:00 Ehsan [facility] MAGNESIUM 2020-10-26 03:41:00 Ehsan [facility] BASIC METABOLIC PANEL 2020-10-26 03:41:00 [facility] (NA, K, CL, CO2, GLUCOSE, Medica l Branch BUN, CREATININE, CA) CBC WITH DIFF 2020-10-26 03:41:00 Ehsan [facility] COVID-19 (ID NOW RAPID 2020-10-25 01:26:00 Ehsan [facility] TESTING) Medical Branch LAB ONLY COVID 2020-10-25 01:26:00 [facility] BASIC METABOLIC PANEL 2020-10-24 22:27:00 Sravan [facility] (NA, K, CL, CO2, GLUCOSE, Medica l Branch BUN, CREATININE, CA) CBC WITH DIFF 2020-10-24 22:27:00 Leticia [facility] ABDOMEN PELVIS W 2020-10-24 21:20:40 Rena Moser [facility] CONTRAST [facility] BASIC METABOLIC PANEL 2020-10-17 23:11:00 Kalee [facility] (NA, K, CL, CO2, GLUCOSE, Medica l Branch BUN, CREATININE, CA) CLOSTRIDIUM DIFFICILE 2020-10-17 17:24:00 [facility] MRSA / MSSA SCREEN BY 2020-10-15 01:09:00 Mandeep Garnica [facility] PHILL BERMUDEZ [facility] SURGICAL PATHOLOGY EXAM 2020-10-14 15:01:[address] [facility] EXPLORATORY LAPAROTOMY 2020-10-14 13:10:00 Kalee [facility] ILEOSTOMY TAKEDOWN 2020-10-14 13:10:00 Kalee [facility] ASSIGNMENT OF BENEFITS 2020-10-14 11:29:56 Doctor Unassigned, Un [facility] [place] [facility] URINALYSIS 2020-10-02 05:22:00 Ebony Chakraborty [facility] LIPASE 2020-10-02 05:19:00 Ebony Chakraborty [facility] acute hospital HEPATIC FUNCTION PANEL 2020-10-02 05:19:00 Ebony Chakraborty [facility] ([id number]) (ALB,T.PRO,BILI Medical Branch T,BU/BC,ALT,AST,ALK PHOS) BASIC METABOLIC PANEL 2020-10-02 05:19:00 Ebony Chakraborty [facility] (NA, K, CL, CO2, GLUCOSE, Medica l Branch BUN, CREATININE, CA) CBC WITH DIFF 2020-10-02 05:19:00 Ebony Chakraborty [facility] acute hospital CONSENT/REFUSAL FOR 2020-10-02 04:45:02 Doctor Unassigned, [facility] DIAGNOSIS AND TREATMENT [place] [facility] COMP. METABOLIC PANEL 2020-09-16 12:00:00 [id number] COMP. METABOLIC PANEL 2020-09-15 09:58:00 [facility] ([id number]) Medical Branch CREATINE KINASE 2020-09-14 16:03:00 [facility] HEPATIC FUNCTION PANEL 2020-09-14 16:03:00 Roby Jean [facility] ([id number]) (ALB,T.PRO,BILI Medical Branch T,BU/BC,ALT,AST,ALK PHOS) BASIC METABOLIC PANEL 2020-09-14 16:03:00 [facility] (NA, K, CL, CO2, GLUCOSE, Medica l Branch BUN, CREATININE, CA) HEPATITIS B SURFACE 2020-09-14 10:15:00 ryan [facility] ANTIBODY [facility] Branch HEPATITIS B SURFACE 2020-09-14 10:15:00 [facility] ANTIGEN Medical Branch HCV BY PCR 2020-09-14 10:15:00 [facility] HB ECG ROUTINE & RHYTHM 2020-09-13 18:17:57 Delta Hellen [facility] STRIP [facility] Branch MAGNESIUM 2020-09-13 18:16:00 [facility] TROPONIN I 2020-09-13 18:16:00 [place] [facility] Branch LIPASE 2020-09-13 17:15:00 [facility] COMP. METABOLIC PANEL 2020-09-13 17:15:00 Delta Hellen [facility] ([id number]) Medical Branch CBC WITH DIFF 2020-09-13 17:15:00 Delta [facility] XR ABDOMEN 2 VW 2020-09-13 16:44:14 [facility] 2020-09-13 05:01:00 Doctor Unassigned, [facility] DOCUMENTS [place] [facility] CT ABDOMEN PELVIS W 2020-09-01 08:02:47 Shayla Munoz [facility] CONTRAST Medical Branch LIPASE 2020-09-01 07:10:00 Shayla Munoz [facility] COMP. METABOLIC PANEL 2020-09-01 07:10:00 Shayla Munoz [facility] ([id number]) Medical Branch CBC WITH DIFF 2020-09-01 07:10:00 Shayla Munoz [facility] CT ABDOMEN PELVIS W 2020-08-24 01:30:05 Matthias Silvestre [facility] CONTRAST Medical Branch LIPASE 2020-08-23 23:52:00 [facility]thias [facility] CBC WITH DIFF 2020-08-23 23:52:00 [facility]th[facility] CONSENT/REFUSAL FOR 2020-08-23 22:12:59 Doctor Unassigned, [facility] DIAGNOSIS AND TREATMENT [place] [facility] CT ABDOMEN PELVIS W 2020-08-18 02:24:35 Shayla Munoz [facility] CONTRAST Medical Branch LIPASE 2020-08-18 01:23:00 Shayla Munoz [facility] COMP. METABOLIC PANEL 2020-08-18 01:23:00 Shayla Munoz [facility] ([id number]) Medical Branch CBC WITH DIFF 2020-08-18 01:23:00 Shayla Munoz [facility] COVID-19 (ID NOW RAPID 2020-08-18 01:23:00 Shayla Munoz [facility] TESTING) Medical [place] NOTICE OF PRIVACY 2020-08-18 00:35:45 Doctor Unassigned, [facility] PRACTICES [place] [facility] CONSENT/REFUSAL FOR 2020-08-18 00:31:36 Doctor Unassigned, [facility] DIAGNOSIS AND TREATMENT [place] [facility] AUTHORIZATION TO RELEASE 2020-08-09 05:01:00 Doctor Unawendy, [facility] PHI TO [facility] [place] [facility] PHOSPHORUS 2020-08-01 08:47:00 [facility] 2020-08-01 08:47:00 [facility] [place] [facility] BASIC METABOLIC PANEL 2020-08-01 08:47:00 [facility] (NA, K, CL, CO2, GLUCOSE, Medica l Branch BUN, CREATININE, CA) CBC WITH DIFF 2020-08-01 08:47:00 [facility] [place] [facility] PHOS[facility]US 2020-07-31 10:06:00 [facility] [place] [facility] MAGNESIUM 2020-07-31 10:06:00 [facility] [place] [facility] BASIC METABOLIC PANEL 2020-07-31 10:06:00 [facility] (NA, K, CL, CO2, GLUCOSE, Medica l Branch BUN, CREATININE, CA) CBC WITH DIFF 2020-07-31 10:06:00 [facility] [place] [facility]OS[facility] 2020-07-30 09:29:00 [facility] [place] [facility] MAGNESIUM 2020-07-30 09:29:00 [facility] [place] [facility] BASIC METABOLIC PANEL 2020-07-30 09:29:00 [facility] (NA, K, CL, CO2, GLUCOSE, Medica l Branch BUN, CREATININE, CA) BASIC METABOLIC PANEL 2020-07-29 10:11:00 [facility] (NA, K, CL, CO2, GLUCOSE, Medica l Branch BUN, CREATININE, CA) CBC WITHOUT DIFF 2020-07-29 10:11:00 [facility] PROTHROMBIN TIME / INR 2020-07-29 10:11:00 [facility] ACTIVATED PARTIAL 2020-07-29 10:11:00 Jduy Flores [facility] FIBRINOGEN 2020-07-29 10:11:00 [facility] EXTRA TUBE LT. BLUE 2020-07-29 10:11:00 Kalee Darren [facility] EXTRA TUBE LT. GREEN 2020-07-29 10:11:00 Kalee [facility] XR KUB 2020-07-29 09:55:00 [facility] CBC WITHOUT DIFF 2020-07-28 10:15:00 Devan [facility] BASIC METABOLIC PANEL 2020-07-28 09:47:00 Farooq Hartman [facility] (NA, K, CL, CO2, GLUCOSE, Jose Angel Medica l Branch BUN, CREATININE, CA) BASIC METABOLIC PANEL 2020-07-27 10:39:00 Farooq Hartman [facility] (NA, K, CL, CO2, GLUCOSE, Jose Angel Medica l Branch BUN, CREATININE, CA) CBC WITHOUT DIFF 2020-07-27 10:39:00 Devan [facility] BASIC METABOLIC PANEL 2020-07-26 07:53:00 Farooq Hartman [facility] (NA, K, CL, CO2, GLUCOSE, Jose Angel Medica l Branch BUN, CREATININE, CA) CBC WITHOUT DIFF 2020-07-26 07:53:00 Farooq Hartman [facility] MAGNESIUM 2020-07-26 00:13:00 Devan [facility] BASIC METABOLIC PANEL 2020-07-26 00:13:00 Farooq Hartman [facility] (NA, K, CL, CO2, GLUCOSE, Jose Angel Medica l Branch BUN, CREATININE, CA) CBC WITHOUT DIFF 2020-07-26 00:13:00 Devan [facility] PROTHROMBIN TIME / INR 2020-07-26 00:13:[address] [facility] ACTIVATED PARTIAL 2020-07-26 00:13:00 Farooq Hartman [facility] SURGICAL PATHOLOGY EXAM 2020-07-25 22:08:[address] [facility] ILEOSTOMY 2020-07-25 20:18:00 [facility]LE[facility] 2020-07-25 20:18:00 Kalee [facility] BASIC METABOLIC PANEL 2020-07-25 11:35:00 [facility] (NA, K, CL, CO2, GLUCOSE, Medica l Branch BUN, CREATININE, CA) CBC WITHOUT DIFF 2020-07-25 11:35:00 Par[facility] ABORH CONFIRMATION 2020-07-25 04:37:00 Mercedez Canela [facility] HB ABO GROUPING 2020-07-25 04:12:00 Oliver Nunez [facility] BASIC METABOLIC PANEL 2020-07-24 07:34:00 Dc Jay [facility] (NA, K, CL, CO2, GLUCOSE, Medica l Branch BUN, CREATININE, CA) CBC WITHOUT DIFF 2020-07-24 07:34:00 Dc Jay [facility] XR ABDOMEN 1 VW 2020-07-24 06:56:00 Dc Jay [facility] EKG-12 LEAD 2020-07-24 06:39:07 Farooq Zepeda [facility] COVID-19 (ID NOW RAPID 2020-07-24 00:26:00 Mercedez Canela [facility]ACT[facility]ID WHOLE BLOOD 2020-07-24 00:24:00 Mercedez Canela [facility] BLOOD CULTURE SCREEN 2020-07-23 21:41:00 Mercedez Canela [facility] LACTIC ACID WHOLE BLOOD 2020-07-23 21:41:00 Mercedez Canela [facility] CT ABDOMEN PELVIS W 2020-07-23 20:56:34 Mercedez Canela [facility] LIPASE 2020-07-23 19:31:00 Mercedez Canela [facility] HEPATIC FUNCTION PANEL 2020-07-23 19:31:00 Mercedez Canela [facility] ([id number]) (ALB,T.PRO,BILI Medical Branch T,BU/BC,ALT,AST,ALK PHOS) BASIC METABOLIC PANEL 2020-07-23 19:31:00 Mercedez Canela [facility] (NA, K, CL, CO2, GLUCOSE, Medica l Branch BUN, CREATININE, CA) CBC WITH DIFF 2020-07-23 19:31:00 Mercedez Canela [facility] URINALYSIS 2020-07-23 19:19:00 Mercedez Canela [facility] NOTICE OF PRIVACY 2020-07-23 16:48:03 Doctor Unassigned, [facility] PRACTICES [facility] CONSENT/REFUSAL FOR 2020-07-23 16:47:54 Doctor Unassmaria del carmen, [facility] DIAGNOSIS AND TREATMENT [facility] AGREEMENTS AUTHORIZATIONS 2020-07-23 05:01:00 Doctor Unassmaria del carmen, [facility] AND IRREVOCABLE [place] [facility] [place] ASSIGNMENTS (FORM 2001) CT ABDOMEN PELVIS W 2019-06-15 18:45:34 Mary Jo Dukes [facility] CONTRAST [facility] LACTIC ACID WHOLE BLOOD 2019-06-15 17:46:00 Mary Jo Dukes [facility] LIPASE 2019-06-15 17:30:00 Mary Jo Dukes [facility] HEPATIC FUNCTION PANEL 2019-06-15 17:30:00 Mary Jo Dukes [facility] ([id number]) (ALB,T.PRO,[facility] T,BU/BC,ALT,AST,ALK PHOS) BASIC METABOLIC PANEL 2019-06-15 17:30:00 Mary Jo Dukes Un [facility] (NA, K, CL, CO2, GLUCOSE, Medica l Branch BUN, CREATININE, CA) CBC WITH DIFFERENTIAL 2019-06-15 17:30:00 Mary Jo Dukes Un [facility] [place] POCT TEST 2019-06-15 17:24:00 Mary Jo Dukes [facility] URINALYSIS 2019-06-15 17:22:00 Mary Jo Dukes [facility] NOTICE OF PRIVACY 2019-06-15 16:39:09 Doctor Tevin Mendez [place] PRACTICES [facility] CONSENT/REFUSAL FOR 2019-06-15 16:38:53 Doctor Hernandez Mendez [facility] DIAGNOSIS AND TREATMENT [facility] Encounters Start End Encounter Admission Attending Care Care Encounter Source Date/Time Date/Time Type Type Clinicians Facility Department ID 2021-09-13 Emergency X KALEE DARREN [facility] JASIEL [id number] Univers 10:26:40 ity of [facility] 2021-09-13 Emergency [facility] [id number] Univers 06:14:00 ity of [facility] 2021-09-13 Outpatient DARREN CLARK [facility] [id number] Univers 05:23:22 ity of [facility] 2021-09-13 Emergency [facility] [id number] Univers 04:35:58 ity of [facility] 2021-09-13 Emergency [facility] [id number] Univers 02:03:39 ity of [facility] 2021-09-13 Emergency [facility] [id number] Univers 00:06:17 ity of [facility] 2021-09-12 Emergency [facility] [id number] Univers 23:33:58 ity of [facility] 2021-09-12 Emergency [facility] [id number] Univers 22:11:08 ity of [facility] 2021-09-12 Emergency [facility] [id number] Univers 20:54:06 ity of [facility] 2021-03-20 Inpatient HCAPM JOSE ROBERTO [id number] [facility] 10:26:00 [id number] [facility] [place] 2021-01-10 Inpatient HCAWU JOSE ROBERTO [id number] [facility] 20:22:00 [id number] [facility] 2021-06-18 2021-06-18 Orders Doctor KELLY 1.2.840.114 [id number] Univers 00:00:00 00:00:00 Only Unassigned, ARMAND 350.1.13.10 [facility]y of [place] [facility] 4.2.7.2.686 Juan as [id number] [place] [address] Branch 2021-05-31 2021-05-31 Emergency E STEFFI NYen [facility] [address] 11:46:00 20:16:00 DELORIS 2021-03-20 2021-03-20 Outpatient NIDIA Villanueva [id number] [facility] 18:43:00 18:43:00 Safi [id number] [facility] 2021-01-03 2021-01-03 Patient Anne Fuentes 1.2.840.114 [id number] Univers 00:00:00 00:00:00 Outreach Mercedez Narayanan 350.1.13.10 [place] [phone] [facility] 403 Branch 2020-11-26 2020-11-26 Outpatient [facility] [id number] Univers 09:00:00 09:00:00 ORPHEUS [id number] ity [facility] 2020-11-26 2020-11-26 Outpatient [facility] [id number] Univers 09:00:00 09:00:00 ORPHEUS ity [facility] 2020-11-26 2020-11-26 Telephone Darren Clark [facility] 1.2.840.114 [id number] Univers 00:00:00 00:00:00 Health 350.1.13.10 [place] - [phone] [facility] 408 Branch 2020-11-22 2020-11-22 Outpatient [facility] [id number] Univers 15:30:00 15:30:00 ORPHEUS [id number] ity [facility] 2020-11-22 2020-11-22 Outpatient [facility] [id number] Univers 15:30:00 15:30:00 ORPHEUS ity [facility] 2020-11-20 2020-11-20 Orders Doctor KELLY 1.2.840.114 [id number] Univers 00:00:00 00:00:00 Only Unassigned, ARMAND 350.1.13.10 [place] of [place] [facility] 4.2.7.2.686 Juan as [phone] [facility] 009 Branch 2020-11-19 2020-11-19 Outpatient R [facility] [id number] [id number]-20 Univers 11:15:00 11:15:00 MEHRDAD [id number] ity [facility] 2020-11-19 2020-11-19 Outpatient R [facility] [id number] Univers 11:15:00 11:15:00 ORPHEUS ity [facility] 2020-11-12 2020-11-12 Patient Deepika Ramirez Anne 1.2.840.114 [id number] Univers 00:00:00 00:00:00 Outreach E Narayanan 350.1.13.10 [place] [id number] [address] 2020-11-11 2020-11-11 Telephone [facility] 1.2.840.114 [id number] Univers 00:00:00 00:00:00 Mehrdad [facility] 350.1.13.10 [place] - [phone] Med ical [address] 2020-11-05 2020-11-05 Telephone Darren Clark [facility] 1.2.840.114 [id number] Univers 00:00:00 00:00:00 SPECIALTY 350.1.13.10 [place] AT [phone] T[address] dic[address] 2020-11-01 2020-11-01 Patient Deepika Ramirez Anne 1.2.840.114 [id number] Univers 00:00:00 00:00:00 Outreach E Narayanan 350.1.13.10 [place] [phone] [address] 2020-10-31 2020-10-31 Transition Anne Damon 1.2.840.114 [id number] 00:00:00 00:00:00 of Care Lyndavictoria Narayanan 350.1.13.10 [place] 4.2.7.2.686 [id number] [facility] 2020-10-31 2020-10-31 Transition Anne Damon 1.2.840.114 [id number] Univers 00:00:00 00:00:00 of Care Lynda Narayanan 350.1.13.10 [place] [phone] [address] 2020-10-24 2020-10-30 [facility] 1.2.840.114 [id number] 13:38:00 19:38:00 Encounter Armand 350.1.13.10 Hospital 4.2.7.2.686 [id number] [facility] 2020-10-24 2020-10-30 [facility] 1.2.840.114 [id number] [facility] 13:38:00 19:38:00 Encounter [place] 350.1.13.10 ity of Hospital 4.2.7.2.686 Juan as [phone] [address] 2020-10-21 2020-10-21 Transition Anne Damon 1.2.840.114 [id number] 00:00:00 00:00:00 of Care Lynda Narayanan 350.1.13.10 [place] 4.2.7.2.686 [id number] [facility] 2020-10-21 2020-10-21 Transition Anne Damon 1.2.840.114 [id number] [facility] 00:00:00 00:00:00 of Care Lynda Narayanan 350.1.13.10 [place] [phone] [address] 2020-10-14 2020-10-19 [facility] 1.2.840.114 [id number] 05:48:00 15:50:00 Encounter Armand 350.1.13.10 Hospital 4.2.7.2.686 [id number] [facility] 2020-10-14 2020-10-19 [facility] 1.2.840.114 [id number] [facility] 05:48:00 15:50:00 Encounter [place] 350.1.13.10 ity of Hospital 4.2.7.2.686 [place] as [phone] [address] 2020-10-16 2020-10-16 Patient Deepika Ramirez 1.2.840.114 [id number] 00:00:00 00:00:00 Outreach E Narayanan 350.1.13.10 [place] 4.2.7.2.686 [id number] 2020-10-16 2020-10-16 Patient Deepika Ramirez 1.2.840.114 [id number] Univers 00:00:00 00:00:00 Outreach E Narayanan 350.1.13.10 i [place] [phone] [facility] [address] 2020-10-14 2020-10-14 Orders Doctor LETICIA 1.2.840.114 [id number] 00:00:00 00:00:00 Only Unassigned, ARMAND 350.1.13.10 [place] [facility] 4.2.7.2.686 [id number] [facility] 2020-10-14 2020-10-14 Orders Doctor LETICIA 1.2.840.114 [id number] Univers 00:00:00 00:00:00 Only Unassigned, ARMAND 350.1.13.10 ity of [place] [facility] 4.2.7.2.686 [place] as [id number] [address] 2020 2020 Laboratory Only, [facility] 1.2.840.114 [id number] 14:56:46 15:11:46 Only Test [place] 350.1.13.10 [place] 4.2.7.2.686 [place] [phone] [facility] 2020 2020 Laboratory Only, Adc Test [facility] 1.2.840. 114 [id number] Univers 14:56:46 15:11:46 Only Darren Clark [place] 350.1.13.10 it[place] of [place].2.[place] [phone] [address] 2020 2020 Outpatient [facility] [id number] Univers 14:45:00 14:45:00 [id number] ity of [facility] 2020 2020 Outpatient R [facility] [id number] Univers 14:45:00 14:45:00 ity of [facility] 2020-10-07 2020-10-07 Patient Deepika Ramirez 1.2.840.114 [id number] 00:00:00 00:00:00 Outreach E Narayanan 350.1.13.10 [place] 4.2.7.2.686 [id number] [facility] 2020-10-07 2020-10-07 Patient Deepika Ramirez 1.2.840.114 [id number] Univers 00:00:00 00:00:00 Outreach E Narayanan 350.1.13.10 [place] [phone] [address] 2020-10-01 2020-10-02 Emergency [facility] 1.2.840.114 [id number] Univers 23:00:00 01:14:00 Ebony Abernathy 350.1.13.10 ity of [place]2.[place].2.[place] [phone] [facility] [address] 2020-10-01 2020-10-01 Transition Sabi Damonmamie 1.2.840.114 [id number] Univers 00:00:00 00:00:00 of Care Lynda Narayanan 350.1.13.10 [place] [phone] [address] 2020-09-30 2020-09-30 Telephone [facility] 1.2.840.114 [id number] Univers 00:00:00 00:00:00 Health 350.1.13.10 it y [place].2.[place] - [phone] Med ical MDA [address] 2020-09-27 2020-09-27 Office [facility] 1.2.840.114 [id number] Univers 09:20:41 09:35:41 Visit Health 350.1.13.10 it [place].2.[place].2.[place] - [id number] Med ical MDA [address] 2020-09-27 2020-09-27 Outpatient R KALEE [facility] [id number] Univers 09:30:00 09:30:00 [id number] ity of [facility] 2020-09-27 2020-09-27 Outpatient R KALEE [facility] [id number] Univers 09:30:00 09:30:00 ity of [facility] 2020-09-24 2020-09-24 Telephone [facility] 1.2.840.114 [id number] Univers 00:00:00 00:00:00 Health 350.1.13.10 it [place]2.[place].2.[place] - [phone] [facility] 408 Branch 2020-09-19 2020-09-19 Transition Anne Damon 1.2.840.114 [id number] Univers 00:00:00 00:00:00 of Care Lynda Narayanan 350.1.13.10 ity of [place] 4.2.7.2.[place] [phone] [facility] 403 [address] 2020-09-19 2020-09-19 Patient JamesDeepika Anne 1.2.840.114 [id number] Univers 00:00:00 00:00:00 Outreach E Narayanan 350.1.13.10 i ty of [place].2.7.2.[place] [phone] [facility] 403 [address] 2020-09-13 2020-09-18 [facility] 1.2.840.1 14 [id number] Univers 10:29:00 17:07:00 Encounter Roby Jean 350.1.13.10 ity of [place] 4[place]2.7.2.[place] [phone] [facility] 081 Branch 2020-09-17 2020-09-17 Patient James Deepika Rodríguez 1.2.840.114 [id number] Univers 00:00:00 00:00:00 Outreach E Narayanan 350.1.13.10 i ty of [place]2.7.2.[place] [phone] [facility] 403 [address] 2020-09-16 2020-09-16 Patient James Deepika Rodríguez 1.2.840.114 [id number] Univers 00:00:00 00:00:00 Outreach E Narayanan 350.1.13.10 i ty [place].2.[place] [phone] [address] 2020-09-16 2020-09-16 Patient Anne Fuentes 1.2.840.114 [id number] Univers 00:00:00 00:00:00 Outreach Mercedez Barlow Narayanan 350.1.13.10 ity of [place]2.[place].2.[place] [phone] [address] 2020-09-13 2020-09-13 Patient Deepika Ramirezmamie 1.2.840.114 [id number] Univers 00:00:00 00:00:00 Outreach E Narayanan 350.1.13.10 i ty of [place]2.[place].2.[place] [id number] [address] 2020-09-12 2020-09-12 Transition Anne Damon 1.2.840.114 [id number] Univers 00:00:00 00:00:00 of Care Lynda Narayanan 350.1.13.10 ity of [place].2.[place] [phone] [address] 2020-09-12 2020-09-12 Patient Deepika Ramirezmamie 1.2.840.114 [id number] Univers 00:00:00 00:00:00 Outreach E Narayanan 350.1.13.10 i ty of [place].2.[place] [id number] [address] 2020-09-12 2020-09-12 Patient Deepika Ramirez Anne 1.2.840.114 [id number] Univers 00:00:00 00:00:00 Outreach E Narayanan 350.1.13.10 i ty [place].2.[place] [id number] [address] 2020-09-12 2020-09-12 Patient Sabi Fuentesmamie 1.2.840.114 [id number] Univers 00:00:00 00:00:00 Outreach Mercedez Barlow Narayanan 350.1.13.10 ity of [place] 4.2.7.2.686 [facility] [phone] [facility] 403 [address] 2020-09-12 2020-09-12 Telephone [facility] 1.2.840.114 [id number] Univers 00:00:00 00:00:00 [place] SPECIALTY 350.1.13.10 ity of CARE 4.2.7.2.686 [facility] CENTER AT [phone] Tn maximus LARA 072 [facility] 2020-09-06 2020-09-06 [facility] [id number] Univers 11:00:00 11:00:00 [id number] ity of [facility] 2020-09-06 2020-09-06 [facility] [id number] Univers 11:00:00 11:00:00 ity of [facility] 2020-09-03 2020-09-03 Outpatient R [facility] [id number] Univers 11:00:00 11:00:00 ity of [facility] 2020-09-03 2020-09-03 Outpatient R [facility] [id number] Univers 11:00:00 11:00:00 ity of [facility] 2020-09-01 2020-09-01 Emergency [facility] 1.2.608.177 [id number] Univers 01:42:00 07:20:00 Shayla Martínez [place] 350.1.13.10 ity of [place] 4.2.7.2.686 [facility] [id number] [facility] 084 Branch 2020-08-29 2020-08-29 Telephone [facility] 1.2.840.114 [id number] Univers 00:00:00 00:00:00 Mehrdad [facility] 350.1.13.10 ity of Cancer 4.2.7.2.686 [facility] - [phone] Med ical MDA [address] 2020-08-28 2020-08-28 Telephone [facility] 1.2.840.114 [id number] Univers 00:00:00 00:00:00 Health 350.1.13.10 it y of Cancer 4.2.7.2.686 [facility] - [phone] [facility] 408 Branch 2020-08-23 2020-08-23 Emergency Nirmala, [facility] 1.2.588.203 [id number] Univers 17:35:00 22:19:00 Matthias Romero Michela 350.1.13.10 i ty of [place] 4.2.7.2.686 [facility] [id number] [facility] 084 Branch 2020-08-20 2020-08-20 Deepika Anthony [facility] 1.2.840.114 [id number] Univers 11:14:50 12:08:13 Visit PersonDaquan HEALTH 350.1.13.10 ity of CLINICS 4.2.7.2.686 [facility] [phone] [facility] 188 [address] 2020-08-20 2020-08-20 Outpatient R [facility] [id number] -[id number] Univers 11:00:00 11:00:00 ity of [facility] 2020-08-20 2020-08-20 Outpatient R [facility] [id number] Univers 11:00:00 11:00:00 ity of [facility] 2020-08-20 2020-08-20 Telephone [facility] 1.2.840.114 [id number] Univers 00:00:00 00:00:00 Health 350.1.13.10 it y of Cancer 4.2.7.2.686 [facility] s [place] - [phone] [facility] 408 [address] 2020-08-17 2020-08-18 [facility] 1.2.819.796 [id number] Univers 19:34:00 00:56:00 Shayla Martínez Abernathy 350.1.13.10 ity of [place] 4.2.7.2.686 [facility] [phone] [place] [address] Branch 2020-08-09 2020-08-09 Office [facility] 1.2.840.114 [id number] Univers 10:32:05 10:47:05 Visit Health 350.1.13.10 it y of Cancer 4.2.7.2.686 [facility] - [phone] [facility] 408 [address] 2020-08-09 2020-08-09 Outpatient R PHATAK, [facility] [id number] Univers 10:45:00 10:45:00 ity of [facility] 2020-08-09 2020-08-09 Orders Doctor LETICIA 1.2.840.114 [id number] Univers 00:00:00 00:00:00 Only Unassigned, ARMAND 350.1.13.10 ity of [place] [facility] 4.2.7.2.686 Juan as [id number] [facility] [address] 2020-08-05 2020-08-05 Telephone [facility] 1.2.840.114 [id number] Univers 00:00:00 00:00:00 Health 350.1.13.10 it [place] - [phone] Med ical [facility] 408 Branch 2020-08-02 2020-08-02 Transition RamirezSabimamie 1.2.840.114 [id number] Univers 00:00:00 00:00:00 of Care Destinee Narayanan 350.1.13.10 i ty of [place].2.7.2.[place] [id number] [facility] 403 [address] 2020-07-23 2020-08-01 Hospital Mercedez Canela 1.2.840 .114 [id number] Univers 11:58:00 17:47:00 Encounter Shayla Munozy 350.1.13.10 ity of [place] Zepeda [facility] 4.2.7.2.686 [facility] [phone] Medical 091 Branch 2020-07-23 2020-07-23 Emergency [facility] E[facility] [id number] Univers 11:58:00 11:58:00 MERCEDEZ scott of [facility] 2020-07-23 2020-07-23 Orders Doctor KELLY 1.2.840.114 [id number] Univers 00:00:00 00:00:00 Only Unassigned, ARMAND 350.1.13.10 ity of [place] [facility] 4.2.7.2.686 Juan as [id number] [facility] 009 Branch 2019-12-09 2019-12-09 Emergency E MHSE MHSE 7503 MH 09:16:00 09:16:00 Lila davis [facility] 2019-06-15 2019-06-15 Emergency DANIEL Dukes 1.2.840.114 [id number] [facility] 11:46:39 15:08:00 Mary Jo Abernathy 350.1.13.10 [facility] 4.2.7.2.686 [facility] [id number] [facility] 084 Branch Results Test Description Test Time Test Comments Results Result [facility] e Comments - CT ABD PELVIS 2021-03-20 W/CONT 13:55:00 [facility] : 1975 Sex: F Name: EDEN CHAKRABORTY [facility] : 1975 Age/S: 45 / F [address] [place] Unit #: [id number] Loc: [place] [address] Phys: Lemuel Villanueva DO Acct: [id number] Dis Date: Status: REG ER PHONE #: [phone] Exam Date: 03/20/2021 1335 FAX #: Reason: epigastric pain, h/o Crohn's, SBO EXAMS: CPT: [id number] CT ABD PELVIS W/CONT 07883 Site ID: [id number] CLINICAL HISTORY: Epigastric abdominal [...] joint arthritis. IMPRESSION: No acute findings at 0879 Reported and signed by: Kang Bates M.D. PAGE 1 Signed Report (CONTINUED) Name: EDEN CHAKRABORTY [facility] : 1975 Age/S: 45 / F [address] [place] Unit #: [id number] Loc: [place] [address] Phys: Lemuel Villanueva DO Acct: [id number] Dis Date: Status: REG ER PHONE #: [phone] Exam Date: 03/20/2021 1335 FAX #: Reason: epigastric pain, h/o Crohn's, SBO EXAMS: CPT: [id number] CT ABD PELVIS W/CONT 50775 <Continued> CC: Lemuel Villanueva DO Technologist:Miryam Anthony, RT(R)(CT) CTDI: DLP: Trnscb Date/Time: 03/20/2021 (0825) [email or web address] Orig Print D/T: S: 03/20/2021 (5160) PAGE 2 Signed Report - XR RIBS UNI 2021-03-20 W/CXR 3+V LT 13:47:00 [facility] : 1975 Sex: F Name: EDEN CHAKRABORTY : 1975 Age/S: 45 / F [id number] [place] [address] Unit #: [id number] Loc: [place] [address] Phys: Lemuel Villanueva DO Acct: [id number] Dis Date: Status: REG ER PHONE #: [phone] Exam Date: 03/20/2021 1231 FAX #: Reason: left rib pain EXAMS: CPT: [id number] XR RIBS UNI W/CXR 3+[place] [address] Fluoro Time: DAP (Gy m2): Air Kerma [...] CHAKRABORTY : 1975 Age/S: 45 / F 30 [place] [address] Unit #: [id number] Loc: [place] [address] Phys: Lemuel Villanueva DO Acct: [id number] Dis Date: Status: REG ER PHONE #: [phone] Exam Date: 03/20/2021 1231 FAX #: Reason: left rib pain EXAMS: CPT: [id number] XR RIBS UNI W/CXR 3+V LT 10841 Fluoro Time: DAP (Gy m2): Air Kerma (mGy): <Continued> Technologist: Cady Pendleton, RT(R)(MR) Trnscb Date/Time: 03/20/2021 (1347) [email or web address] Orig Print D/T: S: 03/20/2021 (3641) PAGE 2 Signed Report HCG SERUM 2021-03-20 12:51:00 Test Item Value Reference Range Interpretation Comme nts HCG SERUM (test code = HCG) < 1 mi-IU/ML 0-6 N 0 - 6 NOT > 6 SUGGESTIVE OF EARLY RISES TWO FOLD EVERY 2 DAYS; SUGGEST REC ONFIRMING AFTER 2 D AYS. 150,000-200,[address] TRIMESTER 10,000 - 50,000 2ND & 3RD TRIME STER BASIC METABOLIC [id number] 12:49:00 Test Item Value Reference Range Interpretation [...] 8.5-10.1 N Completed by Nursing: LETICIAHEPATIC FUNCTION [id number] 12:49:00 Test Item Value Reference Range Interpretation [...] N code = ALKP) Completed by Nursing: [id number] 12:49:00 Test Item Value Reference Range Interpretation Comments LIPASE (test code = LIP) 77 Unit/L 114-286 L Completed by Nursing: [id number] 12:49:00 Test Item Value Reference Range Interpretation [...] tarun yby method. Completed by Nursing: NOPROTHROMBIN [id number] 12:25:00 Test Item Value Reference Range Interpretation Comments PT PATIENT (test code = PTP) 10.7 SECONDS 9.3-12.9 N INTERNATIONAL NORMAL RATIO 0.96 INR Unit 0.8-1.2 N (test code = INR) CBC W/AUTO [id number] 12:23:00 Test Item Value Reference Range Interpretation [...] = MDIFF) UA RFLX MICR CULT IF [id number] 12:18:00 Test Item Value Reference Range Interpretation [...] URINE: CLEAN CATCHUA RFLX MICR CULT IF [id number] 12:18:00 Test Item Value Reference Range Interpretation [...] RiskForSepsis-no oth srcSOURCE OF URINE: CLEAN CATCHLACTIC [id number] 11:59:00 Test Item Value Reference Range Interpretation Comments LACTIC ACID (test code = LACT) 1.3 mmol/L 0.4-2.0 N - XR KNEE 3 V [id number] 21:05:00 [facility] 1975 Sex: F Patient Name: EDEN CHAKRABORTY Unit No: [id number] EXAMS: CPT CODE: [id number] XR KNEE 3 V RT [address] Location: H3 Right knee x-ray exam: 3 views, 01/10/21 CLINICAL HISTORY: Atraumatic knee pain. Comparison exam: None of the knee Knee joint is fairly well- maintained. No erosion identified. No abnormal joint effusion. No abnormal calcific deposition. The overlying soft tissues appear unremarkable. IMPRESSION: Fairly unremarkable exam at 2104 Reported and signed by: Karina Huff [facility]: Timur Middleton MD; Karissa AWAD Technologist: Daquan Armas (RT) Transcrpt Date/Tm/Trnsp: 01/10/2021 (2104) [email or web address] Orig Print D/T: S: 01/10/2021 (2107) [facility] NAME: EDEN CHAKRABORTY [address] [address] PHYS: [place] [address] : 1975 AGE: 45 SEX: F LOC: ZDakshaERS PHONE #: [phone] EXAM DATE: 01/10/2021 STATUS: REG ER FAX #: [phone] RADIOLOGY NO: [id number] PAGE 1 Signed ReportCBC WITH [id number] 13:24:00 Test Item Value Reference Range Interpretation Comments WBC (test code = See_Comment [Automated 9990-2) message] The sy stem which generated this result transmitted reference range : 4.30 - 11.10 10*3/?L. The reference range was not used to interpret this result as normal/abnormal . RBC (test code = See_Comment L [Automated 079-8) message] The sy stem which generated this [...] (test code = 51.6 fL 39-49.9 H 41644-1) RDW-CV (test code = 14.3 % 12-15.5 788-0) PLT (test code = See_Comment H [Automated 777-3) message] The sy stem which generated this result transmitted reference range : 166 - 358 10*3/ ?L. The reference r madelin was not used to interpret this result as normal/abnormal . MPV (test code = 8.9 fL 9.5-12.9 L 43396-6) NRBC/100 WBC (test See_Comment [Automat ed code = 2221796194) message] The system which generated this result transmitted reference range : 0.0 - 10.0 /100 WBCs. The refer ence range was not u sed to interpret th is result as normal/abnormal . NRBC x10^3 (test code <0.01 See_Comment [Auto mated = 0038551627) message] The s ystem which generated this result transmitted reference range : 10*3/?L. The reference range was not used to interpret this result as normal/abnormal . GRAN MAT (NEUT) % 43.5 % (test code = 770-8) IMM GRAN % (test code 0.50 % = 0229710916) LYMPH % (test code = 36.9 % 736-9) MONO % (test code = 11.5 % 5905-5) EOS % (test code = 6.5 % 713-8) BASO % (test code = 1.1 % 706-2) GRAN MAT x10^3(ANC) 2.80 10*3/uL 1.88-7.09 (test code = 7199835440) IMM GRAN x10^3 (test 0.03 10*3/uL 0-0.06 code = 7560542892) LYMPH x10^3 (test code 2.37 10*3/uL 1.32-3.29 = 731-0) MONO x10^3 (test code 0.74 10*3/uL 0.33-0.92 = 742-7) EOS x10^3 (test code = 0.42 10*3/uL 0.03-0.39 H 711-2) BASO x10^3 (test code 0.07 10*3/uL 0.01-0.07 = 704-7) Lab Interpretation Abnormal (test code = 32969-7) [facility] Metabolic Panel (NA, K, CL, CO2, GLUCOSE, BUN, CREATININE, CA)2020-10-29 10:07:00 Test Item Value Reference Range Interpretation Comments NA (test code = 133 mmol/L 135-145 L 4072720150) K (test code = 4.3 mmol/L 3.5-5 8614735846) CL (test code = 102 mmol/L 98-108 6681195842) CO2 TOTAL (test code = 28 mmol/L 23-31 2202193349) AGAP (test code = 2-16 2169552907) BUN (test code = 3 mg/dL 7-23 L 1330879374) GLUCOSE (test code = 103 mg/dL 70-110 6008323734) CREATININE (test code = 0.62 mg/dL 0.5-1.04 6065518918) CALCIUM (test code = 8.4 mg/dL 8.6-10.6 L 8704762842) eGFR Calculation mL/min/1.73m2 (Non-) (test code = 2748579332) eGFR Calculation mL/min/1.73m2 () (test code = 1622302918) RAUDEL (test code = RAUDEL) Association of [...] tests). Lab Interpretation Abnormal (test code = 29517-7) [facility] [id number] 10:07:00 Test Item Value Reference Range Interpretation Comments MAGNESIUM (test code = 7826550906) 1.5 mg/dL 1.7-2.4 L Lab Interpretation (test code = Abnormal 72244-5) [facility] [id number] 13:44:00 Test Item Value Reference Range Interpretation Comments URINE CULTURE (test < 10,000 CFU/mL mixed code = 630-4) aerobic organisms - suggests endogenous microbial contamination [facility] [id number] 10:45:00 Test Item Value Reference Range Interpretation Comments PHOSPHORUS (test code = 6586725936) 3.4 mg/dL 2.5-5 Lab Interpretation (test code = Normal 16665-9) [facility] (NA, K, CL, CO2, GLUCOSE, BUN, CREATININE, CA)2020-10-28 10:45:00 Test Item Value Reference Range Interpretation Comments NA (test code = 135 mmol/L 135-145 9080163424) K (test code = 4.0 mmol/L 3.5-5 4395124499) CL (test code = 101 mmol/L 98-108 9839644375) CO2 TOTAL (test code = 31 mmol/L 23-31 4834209590) AGAP (test code = 2-16 0888314971) BUN (test code = 4 mg/dL 7-23 L 4995211191) GLUCOSE (test code = 100 mg/dL 70-110 3764206527) CREATININE (test code = 0.70 mg/dL 0.5-1.04 2378479528) CALCIUM (test code = 8.3 mg/dL 8.6-10.6 L 3397245012) eGFR Calculation mL/min/1.73m2 (Non-) (test code = 7051079745) eGFR Calculation mL/min/1.73m2 () (test code = 9265018297) RAUDEL (test code = RAUDEL) Association of [...] tests). Lab Interpretation Abnormal (test code = 95132-3) [facility] [id number] 10:45:00 Test Item Value Reference Range Interpretation Comments MAGNESIUM (test code = 3408785980) 1.8 mg/dL 1.7-2.4 Lab Interpretation (test code = Normal 21630-8) [facility] WITH [id number] 10:13:00 Test Item Value Reference Range Interpretation [...] RDW-SD (test code = 48.4 fL 39-49.9 32827-8) RDW-CV (test code = 13.8 % 12-15.5 788-0) PLT (test code = See_Comment H [Automated 777-3) message] The sy stem which generated this result transmitted reference range : 166 - 358 10*3/ ?L. The reference r madelin was not used to interpret this result as normal/abnormal . MPV (test code = 9.1 fL 9.5-12.9 L 73365-8) NRBC/100 WBC (test See_Comment [Automat ed code = 4097176615) message] The system which generated this result transmitted reference range : 0.0 - 10.0 /100 WBCs. The refer ence range was not u sed to interpret th is result as normal/abnormal . NRBC x10^3 (test code <0.01 See_Comment [Auto mated = 7207659136) message] The s ystem which generated this result transmitted reference range : 10*3/?L. The reference range was not used to interpret this result as normal/abnormal . GRAN MAT (NEUT) % 55.3 % (test code = 770-8) IMM GRAN % (test code 0.40 % = 7369742496) LYMPH % (test code = 29.4 % 736-9) MONO % (test code = 9.4 % 5905-5) EOS % (test code = 5.1 % 713-8) BASO % (test code = 0.4 % 706-2) GRAN MAT x10^3(ANC) 3.83 10*3/uL 1.88-7.09 (test code = 2643741594) IMM GRAN x10^3 (test 0.03 10*3/uL 0-0.06 code = 4429052438) LYMPH x10^3 (test code 2.04 10*3/uL 1.32-3.29 = 731-0) MONO x10^3 (test code 0.65 10*3/uL 0.33-0.92 = 742-7) EOS x10^3 (test code = 0.35 10*3/uL 0.03-0.39 711-2) BASO x10^3 (test code 0.03 10*3/uL 0.01-0.07 = 704-7) Lab Interpretation Abnormal (test code = 90097-1) [facility] [id number] 07:50:00 Test Item Value Reference Range Interpretation Comments MAGNESIUM (test code = 3987674985) 1.1 mg/dL 1.7-2.4 L Lab Interpretation (test code = Abnormal 97693-8) [facility]2020-12-13 07:50:00 Test Item Value Reference Range Interpretation Comments APPEARANCE (test code = Hazy Clear A 9392841054) COLOR (test code = Yellow Yellow 5026872775) PH (test code = 4.8-8.0 1013678699) SP GRAVITY (test code = 1.003-1.030 6109836614) GLU U QUAL (test code = Normal Normal 9880140435) BLOOD (test code = Negative Negative 8801276441) KETONES (test code = Negative Negative 8572156414) PROTEIN (test code = Negative Negative 2887-8) UROBILIN (test code = Normal Normal 5322060023) BILIRUBIN (test code = Negative Negative 8046423510) NITRITE (test code = Negative Negative 6556511696) LEUK CHELY (test code = 25/uL Negative A 0730916360) RBC/HPF (test code = See_Comment [Autom ated message] 7843534080) The system [employer] generated this result transmitted ref erence range: 0 - 3 HP F. The reference range was not used to int erpret this result as normal/abnormal . WBC/HPF (test code = See_Comment [Autom ated message] 1840550163) The system [employer] generated this result transmitted ref erence range: 0 - 5 HP F. The reference range was not used to int erpret this result as normal/abnormal . BACTERIA (test code = Negative Negative 0349790008) MUCOUS (test code = Slight Negative LPF A 6349388562) SQ EPITH (test code = See_Comment [Auto mated message] 2402123329) The system [employer] generated this result transmitted ref erence range: <=2 HPF. The reference range was not used to int erpret this result as normal/abnormal . Lab Interpretation (test Abnormal code = 03126-3) [facility] Met[facility] (NA, K, CL, CO2, GLUCOSE, BUN, CREATININE, CA)2020-10-27 07:45:00 Test Item Value Reference Range Interpretation Comments NA (test code = 135 mmol/L 135-145 6719195514) K (test code = 3.2 mmol/L 3.5-5 L 7237151205) CL (test code = 99 mmol/L 98-108 0803355064) CO2 TOTAL (test code = 35 mmol/L 23-31 H 3982698729) AGAP (test code = 2-16 L 8657151565) BUN (test code = 3 mg/dL 7-23 L 9519228507) GLUCOSE (test code = 104 mg/dL 70-110 2770042604) CREATININE (test code = 0.66 mg/dL 0.5-1.04 3152181839) CALCIUM (test code = 7.5 mg/dL 8.6-10.6 L 8238123689) eGFR Calculation mL/min/1.73m2 (Non-) (test code = 3930279896) eGFR Calculation mL/min/1.73m2 () (test code = 0939818849) RAUDEL (test code = RAUDEL) Association of [...] tests). Lab Interpretation Abnormal (test code = 04869-1) [facility] with Hkmsksggofkr8057-62-67 07:24:00 Test Item Value Reference Range Interpretation Comments WBC (test code = See_Comment [Automated 2779-2) message] The sy stem which generated this [...] RDW-SD (test code = 46.6 fL 39-49.9 01310-6) RDW-CV (test code = 13.7 % 12-15.5 788-0) PLT (test code = See_Comment H [Automated 777-3) message] The sy stem which generated this result transmitted reference range : 166 - 358 10*3/ ?L. The reference r madelin was not used to interpret this result as normal/abnormal . MPV (test code = 9.1 fL 9.5-12.9 L 62122-2) NRBC/100 WBC (test See_Comment [Automat ed code = 0393422096) message] The system which generated this result transmitted reference range : 0.0 - 10.0 /100 WBCs. The refer ence range was not u sed to interpret th is result as normal/abnormal . NRBC x10^3 (test code <0.01 See_Comment [Auto mated = 4311786064) message] The s ystem which generated this result transmitted reference range : 10*3/?L. The reference range was not used to interpret this result as normal/abnormal . GRAN MAT (NEUT) % 52.0 % (test code = 770-8) IMM GRAN % (test code 0.50 % = 0467826028) LYMPH % (test code = 34.7 % 736-9) MONO % (test code = 8.6 % 5905-5) EOS % (test code = 3.7 % 713-8) BASO % (test code = 0.5 % 706-2) GRAN MAT x10^3(ANC) 3.19 10*3/uL 1.88-7.09 (test code = 8185244177) IMM GRAN x10^3 (test 0.03 10*3/uL 0-0.06 code = 0108946290) LYMPH x10^3 (test code 2.13 10*3/uL 1.32-3.29 = 731-0) MONO x10^3 (test code 0.53 10*3/uL 0.33-0.92 = 742-7) EOS x10^3 (test code = 0.23 10*3/uL 0.03-0.39 711-2) BASO x10^3 (test code 0.03 10*3/uL 0.01-0.07 = 704-7) Lab Interpretation Abnormal (test code = 29506-5) [facility] COVID GQIARNUUODXXGS6554-03-75 00:32:00COVID DMT InterpretationInterpretation/Recommendations: Molecular NAAT Tests for Active Infection with the SARS-CoV-2 Virus: This patient has a history of testing negative on multiple occasions for xryKAWG-QkN-5 virus that causes COVID-19 illness, with no [...] upon aggregate COVID-19 test results pooled from [facility]. They apply to the following tests offered at [facility] and assume the acceptable specimen type(s) were used: A. Tests for the Identification of SARS-CoV-2 RNA (Molecular NAAT Tests): ?- SARS-CoV-2 PCR assays including [employer] Aptima, [employer] Fusion, [employer] RealTime, and [employer] Xpert Xpress. ?- SARS-CoV-2 Rapid IDNOW by the ID NOW assay. ? B. Tests for the Identification of SARS-CoV-2 Antibodies: ?- Chemi luminescent immunoassays including [employer] SARS-CoV-2 IgM (DXI 600), [employer] Xcyw-GJAN-EgM-2 IgG (Vitros 5600 and Vitros 3600), and [employer] SARS-CoV-2 IgG (RESEARCH INVESTIGATOR I System). These interpretations are autopopulated into [facility] based on computerized algorithms matching an interpretation code to the patient's set of test results, and a clinical pathologist evaluates the comments for accuracy. However, these comments do not consider testing a patient may have had outside of the [facility] system. If results for COVID-19 infection [...] lavage fluid (BAL), tracheal aspirate, etc.). ? [facility] LABORATORY SERVICESCOVID EmlzrudRGNA-IqO-8 Rapid ID NOW (no units) ? ? Date ? Value ? 10/24/2020 ? Not Detected ? ? ? 2020 ? Not Detected ? ? ? 09/25/2020 ? Not Detected ? ? ? 09/10/2020 ? Not Detected ? ? ? 09/04/2020 ? Not Detected ? ? ? 08/17/2020 ? Not Detected ? ? ? 07/23/2020 ? Not Detected ? [facility] CBC with Bjxpylcsykza1942-82-11 11:58:00 Test Item Value Reference Range Interpretation [...] RDW-SD (test code = 47.2 fL 39-49.9 29760-5) RDW-CV (test code = 14.5 % 12-15.5 788-0) PLT (test code = See_Comment H [Automated 777-3) message] The sy stem which generated this result transmitted reference range : 166 - 358 10*3/ ?L. The reference r madelin was not used to interpret this result as normal/abnormal . MPV (test code = 10.1 fL 9.5-12.9 01272-0) NRBC/100 WBC (test See_Comment [Automat ed code = 0515747336) message] The system which generated this result transmitted reference range : 0.0 - 10.0 /100 WBCs. The refer ence range was not u sed to interpret th is result as normal/abnormal . NRBC x10^3 (test code <0.01 See_Comment [Auto mated = 9041243581) message] The s ystem which generated this result transmitted reference range : 10*3/?L. The reference range was not used to interpret this result as normal/abnormal . GRAN MAT (NEUT) % 50.3 % (test code = 770-8) IMM GRAN % (test code 0.50 % = 3403933360) LYMPH % (test code = 36.9 % 736-9) MONO % (test code = 7.6 % 5905-5) EOS % (test code = 4.2 % 713-8) BASO % (test code = 0.5 % 706-2) GRAN MAT x10^3(ANC) 2.76 10*3/uL 1.88-7.09 (test code = 3550110709) IMM GRAN x10^3 (test 0.03 10*3/uL 0-0.06 code = 8487171863) LYMPH x10^3 (test code 2.03 10*3/uL 1.32-3.29 = 731-0) MONO x10^3 (test code 0.42 10*3/uL 0.33-0.92 = 742-7) EOS x10^3 (test code = 0.23 10*3/uL 0.03-0.39 711-2) BASO x10^3 (test code 0.03 10*3/uL 0.01-0.07 = 704-7) Lab Interpretation Abnormal (test code = 59873-6) [facility] Bqknl0618-74-19 04:43:00 Test Item Value Reference Range Interpretation Comments MAGNESIUM (test code = 2150293970) 1.0 mg/dL 1.7-2.4 L Lab Interpretation (test code = Abnormal 38495-0) [facility] Metabolic Panel (NA, K, CL, CO2, GLUCOSE, BUN, CREATININE, CA)2020-10-26 04:43:00 Test Item Value Reference Range Interpretation Comments NA (test code = 136 mmol/L 135-145 3806522029) K (test code = 2.8 mmol/L 3.5-5 LL 0435103682) CL (test code = 97 mmol/L 98-108 L 4934472123) CO2 TOTAL (test code = 35 mmol/L 23-31 H 7645123901) AGAP (test code = 2-16 2892655466) BUN (test code = 3 mg/dL 7-23 L 4385091227) GLUCOSE (test code = 116 mg/dL 70-110 H 5193637807) CREATININE (test code = 0.81 mg/dL 0.5-1.04 7539548391) CALCIUM (test code = 7.2 mg/dL 8.6-10.6 L 5424641256) eGFR Calculation mL/min/1.73m2 (Non-) (test code = 6463762451) eGFR Calculation mL/min/1.73m2 () (test code = 5122889543) RAUDEL (test code = RAUDEL) Association of [...] tests). Lab Interpretation Abnormal (test code = 22957-0) [facility] Zntmk2802-16-53 04:35:00 Test Item Value Reference Range Interpretation Comments PHOSPHORUS (test code = 5764765872) 3.0 mg/dL 2.5-5 Lab Interpretation (test code = Normal 71009-5) [facility] with Lpfxwvpdktph4818-65-11 04:11:00 Test Item Value Reference Range Interpretation [...] RDW-SD (test code = 45.6 fL 39-49.9 62208-3) RDW-CV (test code = 13.4 % 12-15.5 788-0) PLT (test code = See_Comment H [Automated 777-3) message] The sy stem which generated this result transmitted reference range : 166 - 358 10*3/ ?L. The reference r madelin was not used to interpret this result as normal/abnormal . MPV (test code = 9.2 fL 9.5-12.9 L 78335-2) NRBC/100 WBC (test See_Comment [Automat ed code = 0939175877) message] The system which generated this result transmitted reference range : 0.0 - 10.0 /100 WBCs. The refer ence range was not u sed to interpret th is result as normal/abnormal . NRBC x10^3 (test code <0.01 See_Comment [Auto mated = 6226369686) message] The s ystem which generated this result transmitted reference range : 10*3/?L. The reference range was not used to interpret this result as normal/abnormal . GRAN MAT (NEUT) % 55.9 % (test code = 770-8) IMM GRAN % (test code 0.40 % = 5068565341) LYMPH % (test code = 31.9 % 736-9) MONO % (test code = 8.4 % 5905-5) EOS % (test code = 3.1 % 713-8) BASO % (test code = 0.3 % 706-2) GRAN MAT x10^3(ANC) 3.80 10*3/uL 1.88-7.09 (test code = 6157304056) IMM GRAN x10^3 (test 0.03 10*3/uL 0-0.06 code = 9238878923) LYMPH x10^3 (test code 2.17 10*3/uL 1.32-3.29 = 731-0) MONO x10^3 (test code 0.57 10*3/uL 0.33-0.92 = 742-7) EOS x10^3 (test code = 0.21 10*3/uL 0.03-0.39 711-2) BASO x10^3 (test code <0.03 0.01-0.07 = 704-7) Lab Interpretation Abnormal (test code = 55245-8) [facility]way[facility] ABDOMEN PELVIS W CNUMFTFE3102-96-79 14:39:02 1. ?Postsurgical changes of recent ileostomy [...] TECHNIQUE AND FINDINGS: [facility]sub[facility] [...] AND FINDINGS: [facility] [...] reviewed this study and agree with theabove report.[facility] COVID-19 (ID NOW RAPID TESTING)2020-10-25 01:48:00 Test Item Value Reference Range Interpretation Comments SARS-CoV-2 Rapid ID NOW Not Detected Not Detected (test code = 80295-7) RAUDEL (test code = RAUDEL) ID NOW COVID-19 Assay is an isothermal nucleic acid amplification test intended for the qualitative detection of nucleic acid from SARS-CoV-2 viral RNA in nasopharyngeal (RESIDENT DIRECTOR) specimens. It is used under Emergency Use [...] acid from SARS-CoV-2 viral RNA in nasopharyngeal (RESIDENT DIRECTOR) specimens. It is used under Emergency Use [...] indicated. Lab Interpretation Normal (test code = 54919-1) [facility] METABOLIC PANEL (NA, K, CL, CO2, GLUCOSE, BUN, CREATININE, CA)2020-10-24 23:16:00 Test Item Value Reference Range Interpretation Comments NA (test code = 137 mmol/L 135-145 8132913679) K (test code = 3.5 mmol/L 3.5-5 7249268033) CL (test code = 101 mmol/L 98-108 6845642873) CO2 TOTAL (test code = 31 mmol/L 23-31 1360646521) AGAP (test code = 2-16 6526246694) BUN (test code = 5 mg/dL 7-23 L 8874992955) GLUCOSE (test code = 80 mg/dL 70-110 0302258189) CREATININE (test code = 0.57 mg/dL 0.5-1.04 4430444096) CALCIUM (test code = 7.4 mg/dL 8.6-10.6 L 9239057122) eGFR Calculation mL/min/1.73m2 (Non-) (test code = 8961126099) eGFR Calculation mL/min/1.73m2 () (test code = 5996551318) RAUDEL (test code = RAUDEL) Association of [...] tests). Lab Interpretation Abnormal (test code = 71241-9) [facility] WITH [id number] 23:09:00 Test Item Value Reference Range Interpretation Comments WBC (test code = See_Comment [Automated 9390-2) message] The sy stem which generated this [...] RDW-SD (test code = 46.5 fL 39-49.9 01232-8) RDW-CV (test code = 13.4 % 12-15.5 788-0) PLT (test code = See_Comment H [Automated 777-3) message] The sy stem which generated this result transmitted reference range : 166 - 358 10*3/ ?L. The reference r madelin was not used to interpret this result as normal/abnormal . MPV (test code = 9.4 fL 9.5-12.9 L 42828-0) NRBC/100 WBC (test See_Comment [Automat ed code = 0346752649) message] The system which generated this result transmitted reference range : 0.0 - 10.0 /100 WBCs. The refer ence range was not u sed to interpret th is result as normal/abnormal . NRBC x10^3 (test code <0.01 See_Comment [Auto mated = 4316482702) message] The s ystem which generated this result transmitted reference range : 10*3/?L. The reference range was not used to interpret this result as normal/abnormal . GRAN MAT (NEUT) % 54.7 % (test code = 770-8) IMM GRAN % (test code 0.50 % = 4827254634) LYMPH % (test code = 35.9 % 736-9) MONO % (test code = 6.3 % 5905-5) EOS % (test code = 2.3 % 713-8) BASO % (test code = 0.3 % 706-2) GRAN MAT x10^3(ANC) 3.37 10*3/uL 1.88-7.09 (test code = [id number]) IMM GRAN x10^3 (test 0.03 10*3/uL 0-0.06 code = [id number]) LYMPH x10^3 (test code 2.21 10*3/uL 1.32-3.29 = 731-0) MONO x10^3 (test code 0.39 10*3/uL 0.33-0.92 = 742-7) EOS x10^3 (test code = 0.14 10*3/uL 0.03-0.39 711-2) BASO x10^3 (test code <0.03 0.01-0.07 = 704-7) Lab Interpretation Abnormal (test code = 49039-0) [facility] [id number] 17:18:00 Test Item Value Reference Range Interpretation Comments Clostridioides (Clostridium) Negative Negative difficile (test code = 77603-4) Lab Interpretation (test code = Normal 03903-4) [facility] (NA, K, CL, CO2, GLUCOSE, BUN, CREATININE, [place])2020-10-17 23:42:00 Test Item Value Reference Range Interpretation Comments NA (test code = 135 mmol/L 135-145 7916613157) K (test code = 4.0 mmol/L 3.5-5 9127744708) CL (test code = 105 mmol/L 98-108 6459644696) CO2 TOTAL (test code = 22 mmol/L 23-31 L 0832603839) AGAP (test code = 2-16 7469832830) BUN (test code = 8 mg/dL 7-23 1630618689) GLUCOSE (test code = 127 mg/dL 70-110 H 1066357487) CREATININE (test code = 0.96 mg/dL 0.5-1.04 3564425867) CALCIUM (test code = 8.7 mg/dL 8.6-10.6 9027809682) eGFR Calculation mL/min/1.73m2 (Non-) (test code = 6307786529) eGFR Calculation mL/min/1.73m2 () (test code = 2273584691) RAUDEL (test code = RAUDEL) Association of [...] tests). Lab Interpretation Abnormal (test code = 38573-7) [facility] [id number] 19:12:00 Test Item Value Reference Range Interpretation Comments Case Report (test code Surgical Pathology ? ? = [id number]) ?Case: [id number] ? Authorizing Provider: ?Darren lCark MD ?Collected: ? 10/14/2020 0901 ?Ordering Location: ? ? [facility] OR ? Received: ?10/14/2020 1106 ? Department ? Pathologist: ? Simón, MD Marian ? Specimens: ? A) - STOMA, Ileostomy ? B) - COLON, Ileocolic anastamosis ? Final Diagnosis (test a6ecvQZhIFJje8duDOSqsD code = 4360326278) FuZzEwMzNcZnRuYmpcdWMx NEfdjeKlQQejp3FzQ0ZmEf AwMFxhbnNpXGRlZmxhbmcx OBIuQKT5qhVbQEBaWMhyZD MpTLblVu7zyVTanZoxAzCk EQElk7yfqbBLroqjvFl8k9 jdZJHzAnP6hGBrUCqcP7iq fbCnoGLoHIEgHEz1iO11DH WpvL4ptVBmHOrxymStVpD9 BDoiJTCuMeD0SEBpcGIlZO CgG4sxEDPcCHykVIJtZNxq aIPzREF9cRjad3P1sDGgyY UukLibPaDqNaHgHLMOa5Cy YUy6dUyxI1MwUEWdBwU8dU QgUGFyYWdyYXBoIEZvbnQ7 mJ49PStpvpV3tGUst6Lnd4 8vn677qB4fmOOlYUW5JWWb AHFprLRyVDGaKLX7RLTbeN DyI2ftZNluED6vmirkGJR2 MFxtYXJndDcyMFxtYXJnYj XrsIAlMTUfuLizDQenh577 HNJ4UxMiNP4xB2Uct9T5iG 9maXRcZGVmdGFiNzIwXGZv zf5hcIWzWAkim6EmVIQ3ty X2eYKviFQxJNZqUB99Docw h9UuZumnFAF4KPAxvfXqh7 Ggp4csLbIkfcIvO8wqH8Zt ZHJoZWFkXHBnYnJkcmZvb3 Ane0OqgXVvgIc7m0vsWLRv ZZOpvIttu5ueXXY7NCKlB5 E8mDUku7bbSQxwLUVxoFF4 acXqDAUtzRNwG9HvuW9eIU aqRZ0ifxk3o5hvNqGbUW9s wwtiz4geUWnwLJCnBBQ2Nh NqPOChv0ExbewzWyJlt1Jt cZTvIJadQ79nn674XKMmfr GaZ7ysyZTqrygbnOPdyxyz LTyuvfS6HBQxEEIjCAnrDV YxXGZzMjBcbGFuZzEwMzNc aGljaFxmMVxkYmNoXGYxXG zaR2ssNfDdGzMoMZvsQZXm NT4kO13WQ80wUCoDCW8CFE 3FSEFJWA2YLBnhIVnUGSIQ O237OJIertEjBATmPR0rRp BVDJqRLGSTII5yAZ4BVIxC ABSHCKIVW2IJSDOSGVOASA CMM5FGAKXGAPBFGmgWV5VZ T91qYA5KRYDXHwZZR0ReWX UFG2yFIedyxMPgYPCvZJOf CTJfA56WP7uCIXCIKWJGAG OVJJeHES8OWM3OQYjoEKZa rICeFFDvXZKEOF5RPVKNZK JEJ48KSOWkOM3IU5NNIN6Z IMFbWYFYV8mTRN6GEzbcBN IgICAgICAtIEJFTklHTiBD U9aVUrWXNjTxOXqDCKmiSQ oIT6JBGTwPSGsyK46CX8ZL PRMBWDPIN4BXLSudQ32XX8 tPEQRPBXXHIFMVYBuXQC5Z X0rFG9qxBDPeSDGaXIQzMI CCIfBBGZ4UR6VKB3vwPXS1 f3vymCGgUUZdxBWlQpHiHA YpHPHgo9stXIKhwTEfGqUb MzNcZnRuYmpcdWMxXGRlZm Tlo5ejg195eEPqf5ndSEZd ZuM8iRTaTHGejLdqhsy7mW npAbTaNQKrt5dtobMeFzGm QBToYEPmISNstKFfA678ZM IkEDetb3svl3CnCCKlxGYv r7F8WONJQUpvVkYcB936l8 kpb9wpknWowHH0KAJoHIB3 MPlzlzSklbC2KMjglCUmPe C2YWdoyrQkTLszqmVlerGs Ssn7TLNqB416VSO3jAuba0 lbMXL9AINtKVOjMfolEo8v uJRfC873GJEmZUPHYHDlqV f7AMZfmzJmjuGutBVDb673 J976f6vbXDCoafYesKbQky ula8ihM995FBHacSFjznUc MtToAOOwjWBicAC6PNOeYB 7kmhleVMlaTYglJWTmqyR2 UKLadYIjO4WgFANzTB7btg jdMCE5KLxgIRUvCNR3QkCq IPUkb4Rwtgi2HqOqka9ovs 70TDJ6r6JioTjeCPI6ATI1 RuJoKg3mbYFxGDNmSY7hZx BufDFvGEIgyu08uQquBSvf luNyuQ0zVwVxRTPkaAHgHY VmHX2ujASzGVXqgO0swdwa XHBnYnJkcmhlYWRccGdicm DeFr0qvVxiLKZ7LGxfA0qc eL2gIoM4PXuoP4bexS1uGK e1NUpbiKG8JCZxqZ3wOC1v exdzy3tlPQprIQzdWYRvkb T0ncA1DMAjcIIiD5HouU7j PIUjXC6sieprl0uhRJR3EX kjLHHhGWQ0CuDmBMVag2Yy ouk2HxOso1FxyLXeRZfbO6 3jo882CBHannTcL7gwfSXw lddapQHiupwjEWrxspK7YH FsXHBsYWluXGYxXGZzMjBc bGFuZzEwMzNcaGljaFxmMV nbOoFjPLCoTWsqF2pnZdNz Q3KxWQKrBbRwjEDrRXvknQ D5TBCpQKVpz87pxYe8GQJc nnsuv1EpXBXihNYljHWybO 3xbqLvr0ozXWHvDNYrFKMf S1NqXAG2lXXdIRYakDQdsB B4XL8cofLhPF3gYFQbAvaf cmVzaWRlbnRzLCBmZWxsb3 fwNF0pLGQvdPxfcW1aoYJ7 PFKfb2kghSOfyQZjn2glc9 UgbmFtZShzKSBtYXkgYXBw MGSnSF7pQTYhoOVgifHdh8 P1LydxtLOnwoepUspsjnH9 VBapcptjVXUoCWkeY7sxBd VfHGKcrEewBwtqd7PvPEXt XGZzMjhccGFyfX0= Clinical Information Ileostomy care [Z43.2] (test code = 9420057531) Gross Description (test j9wjrAExQUBcbZAtSwHjSH code = 3012014509) PqWBCct7dcTYGrkWNaThTw MzNcZnRuYmpcdWMxXGRlZm Uuo2qxt468hGPcv4gjBSDv NbQ6cOJjGHDknFWiX168BJ DrNOptq9ryg9ViOYXfhWLt v6K9UNQAospobJp8dQofJ2 0uc0S5KsvmV1wtRGSkRSHf D5BzRL6dKTZgYzl8XIH4YJ L9CFGsCRZnF2HnAC1iEGFm eHJkOZp1s0teeTifGZIhSQ O0m6fkGVwiwzOmXK7kwc6p vMv7l0psqbOeVNLvJSKnzY YFZJHsP3XbnKorWu8bmJc7 qRvkUcprOKE8Ova4QD7juz 63ecs4eMijYPWotxrjBcC8 JReeBTPyitguXVf6MMwnIK ImoIIqYDVgjJHgJ9AsILja RE4jske4IvAwOT5yohchMK ohXJByBIQ0EqXbGLJgo1Iu rldnFeJlbc4rgr48KWA8h6 AhrOqyQAV9JWZ6GrLpDu7b mQYqKIOvOC1wAvCncRMmUY Cviw53iHddRZtkqsSwaA4r OcVfDTLaxONuZQWyQW6kbH SrZRPppG4yviyrQBEjUhUu ktpdPXUukPuicfKvYb2vkI otUIM3WSxgS2hjqY0eNtO4 AVseZ6leyU9uSUj7TSbqlR I2FYOqzU7lFS9vlnbyn9xe JJM6QBvoOVDlbzN2auCyJT SfvSKfF3SzxV84BxVvzGZn D2EinI2pKYczKMBiusb5Kb YnWi1shKRooKC7TFbbPgil YWdlXHBnbmNvbnRccGduZG VjXHBsYWluXHBsYWluXGYw CXWpQoComWicmEodkU9xZr XtMdDeNKkzIS7nSEWgZ6uz tOUzKUUwZRZeJ2hzJzOzbT 9jaFxmMVxmczIwIFNwZWNp xFTfKEApilSpLGe8NRDdHj Wva1lbeFZzJLwjHFS7dLNt tBH4mOQhpQuuVW4ykBVzMV UEOZ76sLCeyfqtNqJvFbZo cThit3KhCOGlpAZdk5UyuG utt0FyiJAwEEPfDTIpk89h lZQ8jzGsIdBydoRstNIhe8 ZlwOvisHZuNXMtd09tl9Qp R3bpNO1xh2d7sGJvQIE4wr kgW4KipPvgp1W0rMEpRPFr hE7dGJBykxLoYBRymOTboN NkRZRte7J3TDOuW47gihJg i8ReUu75MBizXWCjRKWqfT NcrqOwRG1cbKhzCY8dJFTr NiBjbSBkaWFtZXRlcikuIC LElTYlb0OgDZ56I85lIGCy zVS6yXVii0BpiTOwiBWwUS TfheDykKJjfPNmbX0bW6Kq xR70GS5rm1d5gKWxZLQabX 9qhmykRK7fIMWckLCmtURh QZSajC2aMJWuSvQzoDibBB TtAQXcwWSafUYlfIZdB4jl DMtjNIFodG16XLAfZF9uPS WhSWAgoCKgmN8urcPkpbGa aLFvSTZeznV6LVLikE3eQI VucmVtYXJrYWJsZSBpbnRl z2CnozDrZD39Q77hCP2lTl ClcsJrMC99PTWfcoJnMaNg mM07jHhpc59hp6WizTJjsW JsPEmgzBmfxqFhQDO0aZ3j cyBwtmWsq2NcaRa3jDCjWW FzIEExXHBsYWluXGYwXGZz MjBcbGFuZzEwMzNcaGljaF kaZXlhGfXfYMSaDRdlY1yg FpLqOlZpPOw4GQZhWADpQc i2DKSyYIwmGELxHRVrDrRi bGFuZzEwMzNcaGljaFxmMV ogVpIsGYNjXJfiT3veRqYd TwYzDHKUXw1unPVcLUEkoj VLuRJvnY2ptvEYSYPjX4Ar dmVkIGZyZXNoIGxhYmVsZW Hqa4l6rGE1zDPhtHS1tUMh kWnrJY9beUDpNCIZTI98bH IeqvjhZqAmChVsvRygn7Px XIZwdPZqC89igFZiSD7cc9 IphN2lyAHiMCIfIMSan57o tAE1ohLvMbJuknFoabZjN1 AlTGPdk1ZpuYRffPAoNjXp fzJttP3tt1ByUGXsu2sfuQ Q1tTJwEO24uJZhvPwqCOO5 KWAcVDQnUQUihE8aKPz6Qe ZgqCMnBpIjbNTrSrubF27i WmIoT8XcgHqePW4czwrync EcZWAmLGOxvUXra6HhKTDq WDQxhkFiqoX3fzRimFOai6 ZeyYXhO03fv94qZrCiowTd rLjjRAlzlVQxm8ArMSOgXX JrnoCcVI51RfFwVNvhINwf lWFoa6HmHEwzuvJuXZJcqA nllUMvtWMgc4i5pV9qWAho bHltcGhvaWQgaHlwZXJwbG BboNHpFYLfNJArIA6jGZ7j MGPgyIRin2DhaSP0ePUhXT OtD9Bzb31qXTTlULOseGAc vIL3KNNfTKXfVaLlnTplqB 2vMlVjSrFxHIiqNO6dINSw P1rzlQViNCYaHRQyW8ioGz XucS8opDwuUVtbxxQcGWV2 RiEvEEgzNRFrzUfxcA2fXk IlOrRyEBooUN9gBNQrL7ag iVMbYHHaKTZaT9ktYpKkeD 9jaFxmMVxmczIwIEIyLlxw YXJccGFyXHBhcmRccGxhaW 5cZjBcZnMyNFxwbGFpblxm MVxmczIwXGxhbmcxMDMzXG nhQ8cxQlHlUIUjkCuvOBfy k0GxHUBeOXZlTrNvPQA9cZ FToO24IOZrVOXjQDGcuUhz eC3awQZ4MDFhh4aijHWnzD lccGFyfQ== Embedded Images (test code = 0068047745) [facility]MR[facility] MSSA Screen by [id number] 21:21:00 Test Item Value Reference Range Interpretation Comments MSSA Screen by Phill BERMUDEZ (test code Negative Negative = 38333-9) MRSA/MSSA Positive? (test code = No No [id number]) Lab Interpretation (test code = Normal 33464-8) [facility]wayUrinalysis2020-11-18 06:06:00 Test Item Value Reference Range Interpretation Comments APPEARANCE (test code = Cloudy Clear A 3692226317) COLOR (test code = Kathleen Yellow A 7894894199) PH (test code = 4.8-8.0 9051242125) SP GRAVITY (test code = 1.003-1.030 4630691179) GLU U QUAL (test code = Normal Normal 8763888889) BLOOD (test code = 1+ Negative A 0897200519) KETONES (test code = 5 mg/dL Negative A 7200217295) PROTEIN (test code = 100 mg/dL Negative A 2887-8) UROBILIN (test code = 2.0 mg/dL Normal A 4040751654) BILIRUBIN (test code = Negative Negative 7427963011) NITRITE (test code = Negative Negative 8812835439) LEUK CHELY (test code = Negative Negative 2691116573) RBC/HPF (test code = See_Comment H [Autom ated message] 4656523778) The system Language123 generated this result transmit carl reference range : 0 - 3 HPF. The refe rence range was not u sed to interpret th is result as normal/abnormal . WBC/HPF (test code = See_Comment [Autom ated message] 5798529643) The system [employer] generated this result transmit carl reference range : 0 - 5 HPF. The refe rence range was not u sed to interpret th is result as normal/abnormal . BACTERIA (test code = Moderate Negative A 3659353405) MUCOUS (test code = Marked Negative LPF A 8362581796) SQ EPITH (test code = HPF 0851139969) CA OXALATE (test code = See_Comment H [Au tomated message] 4228081302) The system [employer] generated this result transmit carl reference range : <=1 HPF. The refere nce range was not u sed to interpret th is result as normal/abnormal . HYAL CAST (test code = See_Comment H [Aut omated message] 8619479675) The system [employer] generated this result transmit carl reference range : <=2 LPF. The refere nce range was not u sed to interpret th is result as normal/abnormal . GRAN CASTS (test code = See_Comment H [Au tomated message] 6431419557) The system [employer] generated this result transmit carl reference range : <=1 LPF. The refere nce range was not u sed to interpret th is result as normal/abnormal . Lab Interpretation (test Abnormal code = 25816-9) [facility]wayHepatic Function Panel (ALB, T.PRO, BILI T, BU/BC, ALT, AST, ALK PHOS)2020-10-02 05:46:00 Test Item Value Reference Range Interpretation Comments TOTAL BILI (test code = 8723556111) 1.0 mg/dL 0.1-1.1 BILI UNCON (test code = 5231803266) 0.6 mg/dL 0.1-1.1 BILI CONJ (test code = 6229824889) 0.0 mg/dL 0-0.3 T PROTEIN (test code = 5456377551) 9.9 g/dL 6.3-8.2 H ALBUMIN (test code = 2469578163) 5.4 g/dL 3.5-5 H ALK PHOS (test code = 9449157401) 153 U/L 34-122 H ALTv (test code = 1742-6) 62 U/L 5-35 H AST(SGOT) (test code = 6622980030) 51 U/L 13-40 H Lab Interpretation (test code = Abnormal 69041-0) [facility] LakewayLipase Iqefp9700-68-55 05:46:00 Test Item Value Reference Range Interpretation Comments LIPASE (test code = 8455102987) 117 U/L 0-220 Lab Interpretation (test code = Normal 39493-6) [facility] Metabolic Panel (NA, K, CL, CO2, GLUCOSE, BUN, CREATININE, [place])2020-10-02 05:46:00 Test Item Value Reference Range Interpretation Comments NA (test code = 135 mmol/L 135-145 8478668440) K (test code = 4.4 mmol/L 3.5-5 2840426076) CL (test code = 102 mmol/L 98-108 4226257540) CO2 TOTAL (test code = 19 mmol/L 23-31 L 4148343927) AGAP (test code = 2-16 6902382069) BUN (test code = 19 mg/dL 7-23 9656543365) GLUCOSE (test code = 135 mg/dL 70-110 H 8594140128) CREATININE (test code = 1.19 mg/dL 0.5-1.04 H 9379192484) CALCIUM (test code = 11.3 mg/dL 8.6-10.6 H 3336540188) eGFR Calculation mL/min/1.73m2 (Non-) (test code = 5268698923) eGFR Calculation mL/min/1.73m2 () (test code = 8798998419) RAUDEL (test code = RAUDEL) Association of [...] tests). Lab Interpretation Abnormal (test code = 39447-3) [facility] with Whtssxvvicbb4213-27-01 05:34:00 Test Item Value Reference Range Interpretation Comments WBC (test code = See_Comment [Automated 2290-2) message] The sy stem which generated this result transmitted reference range : 4.30 - 11.10 10*3/?L. The reference range was not used to interpret this result as normal/abnormal . RBC (test code = See_Comment [Automated 809-8) message] The sy stem which generated this [...] RDW-SD (test code = 40.6 fL 39-49.9 94760-3) RDW-CV (test code = 11.9 % 12-15.5 L 788-0) PLT (test code = See_Comment H [Automated 777-3) message] The sy stem which generated this result transmitted reference range : 166 - 358 10*3/ ?L. The reference r madelin was not used to interpret this result as normal/abnormal . MPV (test code = 9.9 fL 9.5-12.9 05326-0) NRBC/100 WBC (test See_Comment [Automat ed code = 2161855540) message] The system which generated this result transmitted reference range : 0.0 - 10.0 /100 WBCs. The refer ence range was not u sed to interpret th is result as normal/abnormal . NRBC x10^3 (test code <0.01 See_Comment [Auto mated = 0470622503) message] The s ystem which generated this result transmitted reference range : 10*3/?L. The reference range was not used to interpret this result as normal/abnormal . GRAN MAT (NEUT) % 38.8 % (test code = 770-8) IMM GRAN % (test code 0.20 % = 6966224224) LYMPH % (test code = 51.7 % 736-9) MONO % (test code = 7.4 % 5905-5) EOS % (test code = 0.9 % 713-8) BASO % (test code = 1.0 % 706-2) GRAN MAT x10^3(ANC) 2.27 10*3/uL 1.88-7.09 (test code = 8171765390) IMM GRAN x10^3 (test <0.03 0-0.06 code = 4909230726) LYMPH x10^3 (test code 3.02 10*3/uL 1.32-3.29 = 731-0) MONO x10^3 (test code 0.43 10*3/uL 0.33-0.92 = 742-7) EOS x10^3 (test code = 0.05 10*3/uL 0.03-0.39 711-2) BASO x10^3 (test code 0.06 10*3/uL 0.01-0.07 = 704-7) Lab Interpretation Abnormal (test code = 88136-6) [facility] LakewayHCV BY [id number] 17:03:00 Test Item Value Reference Range Interpretation Comments HCV by Real-Time Not Detected Not detected IU/mL PCR (test code = 5141956492) RAUDEL (test code = [employer] m2000 RealTime HCV RAUDEL) reverse product development coordinator-polymerase chain reaction(RT-PCR) assay is used. It is [...] 0 IU/mL,>100,000,000 IU/mL: >upper limit of quantification. [facility]wayCOM. METABOLIC PANEL ([id number])2020-09-16 15:03:00 Test Item Value Reference Range Interpretation Comments NA (test code = 135 mmol/L 135-145 5611128316) K (test code = 4.4 mmol/L 3.5-5 9087631874) CL (test code = 111 mmol/L 98-108 H 1417919416) CO2 TOTAL (test code = 21 mmol/L 23-31 L 0360232813) AGAP (test code = 2-16 9340382681) BUN (test code = 11 mg/dL 7-23 6837011089) GLUCOSE (test code = 115 mg/dL 70-110 H 0667428422) CREATININE (test code = 0.83 mg/dL 0.5-1.04 5667910214) TOTAL BILI (test code = 0.5 mg/dL 0.1-1.1 3148423304) CALCIUM (test code = 8.3 mg/dL 8.6-10.6 L 7903493297) T PROTEIN (test code = 5.4 g/dL 6.3-8.2 L 0258091927) ALBUMIN (test code = 2.8 g/dL 3.5-5 L 4161987704) ALK PHOS (test code = 71 U/L 34-122 1855335176) ALTv (test code = 31 U/L 5-35 1742-6) AST(SGOT) (test code = 31 U/L 13-40 7036373359) eGFR Calculation mL/min/1.73m2 (Non-) (test code = 0662146552) eGFR Calculation mL/min/1.73m2 () (test code = 5519841337) RAUDEL (test code = RAUDEL) Association of [...] tests). Lab Interpretation Abnormal (test code = 76804-5) [facility]. METABOLIC PANEL (17212)2020-09-15 11:19:00 Test Item Value Reference Range Interpretation Comments NA (test code = 135 mmol/L 135-145 0200352769) K (test code = 3.9 mmol/L 3.5-5 7533483044) CL (test code = 104 mmol/L 98-108 2371481079) CO2 TOTAL (test code = 27 mmol/L 23-31 4442927192) AGAP (test code = 2-16 7380469511) BUN (test code = 15 mg/dL 7-23 2344312072) GLUCOSE (test code = 153 mg/dL 70-110 H 1857929741) CREATININE (test code = 0.91 mg/dL 0.5-1.04 7696930939) TOTAL BILI (test code = 0.4 mg/dL 0.1-1.1 0557762436) CALCIUM (test code = 9.2 mg/dL 8.6-10.6 1174269700) T PROTEIN (test code = 7.2 g/dL 6.3-8.2 8953023312) ALBUMIN (test code = 3.8 g/dL 3.5-5 1545352130) ALK PHOS (test code = 106 U/L 34-122 6695205466) ALTv (test code = 43 U/L 5-35 H 1742-6) AST(SGOT) (test code = 28 U/L 13-40 1851993424) eGFR Calculation mL/min/1.73m2 (Non-) (test code = 2096067263) eGFR Calculation mL/min/1.73m2 () (test code = 0972481641) RAUDEL (test code = RAUDEL) Association of [...] tests). Lab Interpretation Abnormal (test code = 74628-0) [facility]wayHEPATIC FUNCTION PANEL (00662) (ALB,T.PRO,BILI T,BU/BC,ALT,AST,ALK PHOS)2020-09-14 19:50:00 Test Item Value Reference Range Interpretation Comments TOTAL BILI (test code = 2405562362) 0.5 mg/dL 0.1-1.1 BILI UNCON (test code = 8828320962) 0.4 mg/dL 0.1-1.1 BILI CONJ (test code = 7026416078) 0.0 mg/dL 0-0.3 T PROTEIN (test code = 0349989593) 6.5 g/dL 6.3-8.2 ALBUMIN (test code = 5556268446) 3.4 g/dL 3.5-5 L ALK PHOS (test code = 5033230720) 95 U/L 34-122 ALTv (test code = 1742-6) 45 U/L 5-35 H AST(SGOT) (test code = 3848520348) 31 U/L 13-40 Lab Interpretation (test code = Abnormal 83517-6) [facility] LakewayCREATINE [id number] 18:49:00 Test Item Value Reference Range Interpretation Comments CK (test code = 4326726867) 44 U/L 33-194 Lab Interpretation (test code = Normal 40365-1) [facility]wayBASIC METABOLIC PANEL (NA, K, CL, CO2, GLUCOSE, BUN, CREATININE, CA)2020-09-14 17:05:00 Test Item Value Reference Range Interpretation Comments NA (test code = 136 mmol/L 135-145 8117338759) K (test code = 3.9 mmol/L 3.5-5 8413439166) CL (test code = 104 mmol/L 98-108 1257286625) CO2 TOTAL (test code = 27 mmol/L 23-31 3854516404) AGAP (test code = 2-16 3914321771) BUN (test code = 17 mg/dL 7-23 3358324605) GLUCOSE (test code = 114 mg/dL 70-110 H 1565984631) CREATININE (test code = 0.84 mg/dL 0.5-1.04 0034178557) CALCIUM (test code = 8.9 mg/dL 8.6-10.6 9988107944) eGFR Calculation mL/min/1.73m2 (Non-) (test code = 6176751938) eGFR Calculation mL/min/1.73m2 () (test code = 8233226961) RAUDEL (test code = RAUDEL) Association of [...] tests). Lab Interpretation Abnormal (test code = 96710-8) [facility]wayHEPATITIS B SURFACE [id number] 16:44:00 Test Item Value Reference Range Interpretation Comments HBsAB (test code = Negative 2390003712) HBsAb mIU/mL Semi-Quantitative (test code = 7725561293) RAUDEL (test code = Interpretation: RAUDEL) ?Hepatitis B Surface Antibody ? Negative - Patient is considered to be not immune to infection with HBV. ? ? Positive - Anti-HBs detected at greater than or equal to 12 mIU/mL. ?Patient is considered to be immune to infection with HBV. ? [facility] [id number] 16:27:00 Test Item Value Reference Range Interpretation Comments HBsAg Semi-Quantitative (test code = Negative Negative 5195-3) [facility]2020-10-31 04:05:00 Test Item Value Reference Range Interpretation Comments MAGNESIUM (test code = 7101091068) 1.6 mg/dL 1.7-2.4 L Lab Interpretation (test code = Abnormal 75791-7) [facility]wayTROPONIN [id number] 20:02:00 Test Item Value Reference Range Interpretation Comments TROPONIN I (test <0.012 See_Comment [Automated code = 9869042417) message] The system which generated this result [...] ? Lab Interpretation Normal (test code = 95279-7) [facility]. METABOLIC PANEL (06965)2020-09-13 17:43:00 Test Item Value Reference Range Interpretation Comments NA (test code = 139 mmol/L 135-145 8826773435) K (test code = 4.5 mmol/L 3.5-5 4817151315) CL (test code = 99 mmol/L 98-108 8764023836) CO2 TOTAL (test code = 31 mmol/L 23-31 9748959458) AGAP (test code = 2-16 3389350840) BUN (test code = 14 mg/dL 7-23 5511481383) GLUCOSE (test code = 115 mg/dL 70-110 H 8031287540) CREATININE (test code = 1.31 mg/dL 0.5-1.04 H 8422972034) TOTAL BILI (test code = 1.4 mg/dL 0.1-1.1 H 4574025895) CALCIUM (test code = 10.6 mg/dL 8.6-10.6 2933823811) T PROTEIN (test code = 9.1 g/dL 6.3-8.2 H 7043367781) ALBUMIN (test code = 4.7 g/dL 3.5-5 6160598932) ALK PHOS (test code = 160 U/L 34-122 H 6541416236) ALTv (test code = 84 U/L 5-35 H 1742-6) AST(SGOT) (test code = 51 U/L 13-40 H 2510791143) eGFR Calculation mL/min/1.73m2 (Non-) (test code = 6046099326) eGFR Calculation mL/min/1.73m2 () (test code = 1180784847) RAUDEL (test code = RAUDEL) Association of [...] tests). Lab Interpretation Abnormal (test code = 20980-5) [facility]2020-10-30 17:43:00 Test Item Value Reference Range Interpretation Comments LIPASE (test code = 3416308423) 88 U/L 0-220 Lab Interpretation (test code = Normal 75135-6) [facility] WITH [id number] 17:31:00 Test Item Value Reference Range Interpretation Comments WBC (test code = See_Comment [Automated 4429-2) message] The sy stem which generated this result transmitted reference range : 4.30 - 11.10 10*3/?L. The reference range was not used to interpret this result as normal/abnormal . RBC (test code = See_Comment [Automated 701-8) message] The sy stem which generated this [...] RDW-SD (test code = 44.9 fL 39-49.9 30233-2) RDW-CV (test code = 12.9 % 12-15.5 788-0) PLT (test code = See_Comment H [Automated 777-3) message] The sy stem which generated this result transmitted reference range : 166 - 358 10*3/ ?L. The reference r madelin was not used to interpret this result as normal/abnormal . MPV (test code = 9.7 fL 9.5-12.9 32694-8) NRBC/100 WBC (test See_Comment [Automat ed code = 9222104779) message] The system which generated this result transmitted reference range : 0.0 - 10.0 /100 WBCs. The refer ence range was not u sed to interpret th is result as normal/abnormal . NRBC x10^3 (test code <0.01 See_Comment [Auto mated = 4093214683) message] The s ystem which generated this result transmitted reference range : 10*3/?L. The reference range was not used to interpret this result as normal/abnormal . GRAN MAT (NEUT) % 80.0 % (test code = 770-8) IMM GRAN % (test code 0.50 % = 9014051476) LYMPH % (test code = 10.4 % 736-9) MONO % (test code = 7.1 % 5905-5) EOS % (test code = 1.5 % 713-8) BASO % (test code = 0.5 % 706-2) GRAN MAT x10^3(ANC) 7.11 10*3/uL 1.88-7.09 H (test code = 2584847152) IMM GRAN x10^3 (test 0.04 10*3/uL 0-0.06 code = 3740517660) LYMPH x10^3 (test code 0.92 10*3/uL 1.32-3.29 L = 731-0) MONO x10^3 (test code 0.63 10*3/uL 0.33-0.92 = 742-7) EOS x10^3 (test code = 0.13 10*3/uL 0.03-0.39 711-2) BASO x10^3 (test code 0.04 10*3/uL 0.01-0.07 = 704-7) Lab Interpretation Abnormal (test code = 52196-7) [facility]wayXR ABDOMEN 2 [id number] 17:08:57Overall, bowel gas pattern is felt to [...] pelvis.Ostomy appliance projects over the right lower quadrant.[facility]wayCOMP[facility] METABOLIC PANEL (42342)2020-09-01 07:34:00 Test Item Value Reference Range Interpretation Comments NA (test code = 137 mmol/L 135-145 2636172782) K (test code = 3.6 mmol/L 3.5-5 2425756931) CL (test code = 100 mmol/L 98-108 5720237860) CO2 TOTAL (test code = 26 mmol/L 23-31 1077485070) AGAP (test code = 2-16 8325588768) BUN (test code = 19 mg/dL 7-23 0748175020) GLUCOSE (test code = 171 mg/dL 70-110 H 3045063601) CREATININE (test code = 0.98 mg/dL 0.5-1.04 1846766272) TOTAL BILI (test code = 0.8 mg/dL 0.1-1.4 3659528212) CALCIUM (test code = 10.4 mg/dL 8.6-10.6 6965851949) T PROTEIN (test code = 8.9 g/dL 6.3-8.2 H 2216792360) ALBUMIN (test code = 4.9 g/dL 3.5-5 7699909124) ALK PHOS (test code = 109 U/L 34-122 4399323543) ALTv (test code = 46 U/L 5-35 H 1742-6) AST(SGOT) (test code = 26 U/L 13-40 8532376023) eGFR Calculation mL/min/1.73m2 (Non-) (test code = 3443952609) eGFR Calculation mL/min/1.73m2 () (test code = 3753310237) RAUDEL (test code = RAUDEL) Association of [...] tests). Lab Interpretation Abnormal (test code = 85307-8) [facility]2020-10-18 07:34:00 Test Item Value Reference Range Interpretation Comments LIPASE (test code = 7168816287) 103 U/L 0-220 Lab Interpretation (test code = Normal 66763-8) [facility]way[facility] WITH [id number] 07:19:00 Test Item Value Reference Range Interpretation [...] RDW-SD (test code = 40.4 fL 39-49.9 29603-8) RDW-CV (test code = 12.1 % 12-15.5 788-0) PLT (test code = See_Comment [Automated 777-3) message] The sy stem which generated this result transmitted reference range : 166 - 358 10*3/ ?L. The reference r madelin was not used to interpret this result as normal/abnormal . MPV (test code = 10.7 fL 9.5-12.9 04540-2) NRBC/100 WBC (test See_Comment [Automat ed code = 9611227929) message] The system which generated this result transmitted reference range : 0.0 - 10.0 /100 WBCs. The refer ence range was not u sed to interpret th is result as normal/abnormal . NRBC x10^3 (test code <0.01 See_Comment [Auto mated = 0126069031) message] The s ystem which generated this result transmitted reference range : 10*3/?L. The reference range was not used to interpret this result as normal/abnormal . GRAN MAT (NEUT) % 77.7 % (test code = 770-8) IMM GRAN % (test code 0.20 % = 2051759272) LYMPH % (test code = 18.3 % 736-9) MONO % (test code = 3.5 % 5905-5) EOS % (test code = 0.0 % 713-8) BASO % (test code = 0.3 % 706-2) GRAN MAT x10^3(ANC) 4.63 10*3/uL 1.88-7.09 (test code = 4140121503) IMM GRAN x10^3 (test <0.03 0-0.06 code = 5934982973) LYMPH x10^3 (test code 1.09 10*3/uL 1.32-3.29 L = 731-0) MONO x10^3 (test code 0.21 10*3/uL 0.33-0.92 L = 742-7) EOS x10^3 (test code = <0.03 0.03-0.39 L 711-2) BASO x10^3 (test code <0.03 0.01-0.07 = 704-7) Lab Interpretation Abnormal (test code = 60841-0) [facility]00 Test Item Value Reference Range Interpretation Comments LIPASE (test code = 3415829769) 171 U/L 0-220 Lab Interpretation (test code = Normal 69308-7) [facility] WITH [id number] 02:25:00 Test Item Value Reference Range Interpretation Comments WBC (test code = See_Comment [Automated message] 6690-2) The system Eng[employer] h generated this result transmitted ref erence range: 4.30 - 1 1.10 10*3/?L. The re ference range was not u sed to interpret this result as normal/abnor mal. RBC (test code = See_Comment [Automated message] 789-8) The system [employer] generated this result transmitted ref erence range: [...] RDW-SD (test code 42.3 fL 39-49.9 = 60368-5) RDW-CV (test code 12.1 % 12-15.5 = 788-0) PLT (test code = See_Comment [Automated message] 777-3) The system [employer] generated this result transmitted ref erence range: 166 - 35 8 10*3/?L. The re ference range was not u sed to interpret this result as normal/abnor mal. MPV (test code = 11.0 fL 9.5-12.9 24460-2) NRBC/100 WBC (test See_Comment [Automat ed message] code = 0169379478) The syste m which generated this result transmitted ref erence range: 0.0 - 10 .0 /100 WBCs. The refer ence range was not u sed to interpret this result as normal/abnor mal. NRBC x10^3 (test <0.01 See_Comment [Automated message] code = 2756575659) The syste m which generated this result transmitted ref erence range: 10*3/?L. The reference range was not used to interpr et this result as normal/abnormal . GRAN MAT (NEUT) % 44.5 % (test code = 770-8) IMM GRAN % (test 0.20 % code = 0511191860) LYMPH % (test code 43.0 % = 736-9) MONO % (test code 9.5 % = 5905-5) EOS % (test code = 1.7 % 713-8) BASO % (test code 1.1 % = 706-2) GRAN MAT 2.35 10*3/uL 1.88-7.09 x10^3(ANC) (test code = 3833649605) IMM GRAN x10^3 <0.03 0-0.06 (test code = 4596829137) LYMPH x10^3 (test 2.27 10*3/uL 1.32-3.29 code = 731-0) MONO x10^3 (test 0.50 10*3/uL 0.33-0.92 code = 742-7) EOS x10^3 (test 0.09 10*3/uL 0.03-0.39 code = 711-2) BASO x10^3 (test 0.06 10*3/uL 0.01-0.07 code = 704-7) [facility] A[facility]OM[facility] PELVIS W [id number] 03:50:29Addendum by Rhett Harden MD on 08/17/2020 11:01 PM* * * * * * * * ADDENDUM: * * * * * * * * The finding regarding left breast nodule was discussed with Dr MunozGqcxtcmp92/3/2020 10:53 PM Preliminary Report Dictated by Resident: [...] reviewed this study and agree with theabove report.[facility] (ID NOW RAPID TESTING) 2020-08-18 01:55:00 Test Item Value Reference Range Interpretation Comments SARS-CoV-2 Rapid ID NOW Not Detected Not Detected (test code = 45930-7) RAUDEL (test code = RAUDEL) ID NOW COVID-19 Assay is an isothermal nucleic acid amplification test intended for the qualitative detection of nucleic acid from SARS-CoV-2 viral RNA in nasopharyngeal (RESIDENT DIRECTOR) specimens. It is used under Emergency Use [...] indicated. Lab Interpretation Normal (test code = 83253-7) [facility]. METABOLIC PANEL (09554)2020-08-18 01:47:00 Test Item Value Reference Range Interpretation Comments NA (test code = 135 mmol/L 135-145 4012005727) K (test code = 4.1 mmol/L 3.5-5 9586613018) CL (test code = 96 mmol/L 98-108 L 7610376852) CO2 TOTAL (test code = 30 mmol/L 23-31 8096319139) AGAP (test code = 2-16 2190340043) BUN (test code = 17 mg/dL 7-23 1257914226) GLUCOSE (test code = 149 mg/dL 70-110 H 4507278778) CREATININE (test code = 1.21 mg/dL 0.5-1.04 H 2067020166) TOTAL BILI (test code = 0.7 mg/dL 0.1-1.7 0915899382) CALCIUM (test code = 10.5 mg/dL 8.6-10.6 6059198309) T PROTEIN (test code = 8.6 g/dL 6.3-8.2 H 5046230513) ALBUMIN (test code = 4.4 g/dL 3.5-5 8415904711) ALK PHOS (test code = 170 U/L 34-122 H 0458125185) ALTv (test code = 145 U/L 5-35 H 1742-6) AST(SGOT) (test code = 70 U/L 13-40 H 1201969495) eGFR Calculation mL/min/1.73m2 (Non-) (test code = 6545810169) eGFR Calculation mL/min/1.73m2 () (test code = 1048598494) RAUDEL (test code = RAUDEL) Association of [...] tests). Lab Interpretation Abnormal (test code = 79754-9) [facility] 01:47:00 Test Item Value Reference Range Interpretation Comments LIPASE (test code = 2473477592) 172 U/L 0-220 Lab Interpretation (test code = Normal 11617-5) [facility] WITH [id number] 01:34:00 Test Item Value Reference Range Interpretation Comments WBC (test code = See_Comment [Automated 1673-2) message] The sy stem which generated this result transmitted reference range : 4.30 - 11.10 10*3/?L. The reference range was not used to interpret this result as normal/abnormal . RBC (test code = See_Comment [Automated 979-8) message] The sy stem which generated this [...] RDW-SD (test code = 41.1 fL 39-49.9 12840-8) RDW-CV (test code = 11.8 % 12-15.5 L 788-0) PLT (test code = See_Comment [Automated 217-3) message] The sy stem which generated this result transmitted reference range : 166 - 358 10*3/ ?L. The reference r madelin was not used to interpret this result as normal/abnormal . MPV (test code = 10.4 fL 9.5-12.9 50591-5) NRBC/100 WBC (test See_Comment [Automat ed code = 8599220918) message] The system which generated this result transmitted reference range : 0.0 - 10.0 /100 WBCs. The refer ence range was not u sed to interpret th is result as normal/abnormal . NRBC x10^3 (test code <0.01 See_Comment [Auto mated = 3215410953) message] The s ystem which generated this result transmitted reference range : 10*3/?L. The reference range was not used to interpret this result as normal/abnormal . GRAN MAT (NEUT) % 50.9 % (test code = 770-8) IMM GRAN % (test code 0.40 % = 7864476191) LYMPH % (test code = 35.9 % 736-9) MONO % (test code = 9.9 % 5905-5) EOS % (test code = 2.2 % 713-8) BASO % (test code = 0.7 % 706-2) GRAN MAT x10^3(ANC) 2.31 10*3/uL 1.88-7.09 (test code = 8964479630) IMM GRAN x10^3 (test <0.03 0-0.06 code = 0802182139) LYMPH x10^3 (test code 1.63 10*3/uL 1.32-3.29 = 731-0) MONO x10^3 (test code 0.45 10*3/uL 0.33-0.92 = 742-7) EOS x10^3 (test code = 0.10 10*3/uL 0.03-0.39 711-2) BASO x10^3 (test code 0.03 10*3/uL 0.01-0.07 = 704-7) Lab Interpretation Abnormal (test code = 38575-5) [facility] WITH [id number] 10:12:00 Test Item Value Reference Range Interpretation [...] RDW-SD (test code = 45.2 fL 39-49.9 54895-3) RDW-CV (test code = 12.9 % 12-15.5 788-0) PLT (test code = See_Comment H [Automated 777-3) message] The sy stem which generated this result transmitted reference range : 166 - 358 10*3/ ?L. The reference r madelin was not used to interpret this result as normal/abnormal . MPV (test code = 9.8 fL 9.5-12.9 69570-3) NRBC/100 WBC (test See_Comment [Automat ed code = 6244492818) message] The system which generated this result transmitted reference range : 0.0 - 10.0 /100 WBCs. The refer ence range was not u sed to interpret th is result as normal/abnormal . NRBC x10^3 (test code <0.01 See_Comment [Auto mated = 1328357138) message] The s ystem which generated this result transmitted reference range : 10*3/?L. The reference range was not used to interpret this result as normal/abnormal . GRAN MAT (NEUT) % 64.8 % (test code = 770-8) IMM GRAN % (test code 2.10 % = 6674311241) LYMPH % (test code = 21.9 % 736-9) MONO % (test code = 9.0 % 5905-5) EOS % (test code = 1.9 % 713-8) BASO % (test code = 0.3 % 706-2) GRAN MAT x10^3(ANC) 8.61 10*3/uL 1.88-7.09 H (test code = 8366822386) IMM GRAN x10^3 (test 0.28 10*3/uL 0-0.06 H code = 0131664991) LYMPH x10^3 (test code 2.91 10*3/uL 1.32-3.29 = 731-0) MONO x10^3 (test code 1.20 10*3/uL 0.33-0.92 H = 742-7) EOS x10^3 (test code = 0.25 10*3/uL 0.03-0.39 711-2) BASO x10^3 (test code 0.04 10*3/uL 0.01-0.07 = 704-7) REACT LYMPHS (test Rare code = 4629683413) Lab Interpretation Abnormal (test code = 61265-5) [facility] METABOLIC PANEL (NA, K, CL, CO2, GLUCOSE, BUN, CREATININE, CA)2020-08-01 09:46:00 Test Item Value Reference Range Interpretation Comments NA (test code = 137 mmol/L 135-145 8389928784) K (test code = 4.0 mmol/L 3.5-5 0406920321) CL (test code = 100 mmol/L 98-108 3399719258) CO2 TOTAL (test code = 30 mmol/L 23-31 2551378691) AGAP (test code = 2-16 3682882101) BUN (test code = 5 mg/dL 7-23 L 7794878586) GLUCOSE (test code = 139 mg/dL 70-110 H 6941427130) CREATININE (test code = 0.73 mg/dL 0.5-1.04 1211364704) CALCIUM (test code = 9.3 mg/dL 8.6-10.6 7286281660) eGFR Calculation mL/min/1.73m2 (Non-) (test code = 4939846851) eGFR Calculation mL/min/1.73m2 () (test code = 1045964494) RAUDEL (test code = RAUDEL) Association of [...] tests). Lab Interpretation Abnormal (test code = 93905-2) [facility]2020-09-17 09:46:00 Test Item Value Reference Range Interpretation Comments MAGNESIUM (test code = 4235903395) 1.9 mg/dL 1.7-2.4 Lab Interpretation (test code = Normal 41823-3) [facility]2020-09-17 09:46:00 Test Item Value Reference Range Interpretation Comments PHOSPHORUS (test code = 5161467343) 3.0 mg/dL 2.5-5 Lab Interpretation (test code = Normal 54367-6) [facility] WITH [id number] 10:55:00 Test Item Value Reference Range Interpretation Comments WBC (test code = See_Comment [Automated 7990-2) message] The sy stem which generated this [...] RDW-SD (test code = 45.4 fL 39-49.9 91781-9) RDW-CV (test code = 12.8 % 12-15.5 788-0) PLT (test code = See_Comment H [Automated 777-3) message] The sy stem which generated this result transmitted reference range : 166 - 358 10*3/ ?L. The reference r madelin was not used to interpret this result as normal/abnormal . MPV (test code = 9.7 fL 9.5-12.9 14640-1) NRBC/100 WBC (test See_Comment [Automat ed code = 2070532707) message] The system which generated this result transmitted reference range : 0.0 - 10.0 /100 WBCs. The refer ence range was not u sed to interpret th is result as normal/abnormal . NRBC x10^3 (test code <0.01 See_Comment [Auto mated = 5014203230) message] The s ystem which generated this result transmitted reference range : 10*3/?L. The reference range was not used to interpret this result as normal/abnormal . GRAN MAT (NEUT) % 42.8 % (test code = 770-8) IMM GRAN % (test code 5.50 % = 6020547142) LYMPH % (test code = 36.7 % 736-9) MONO % (test code = 11.8 % 5905-5) EOS % (test code = 2.8 % 713-8) BASO % (test code = 0.4 % 706-2) GRAN MAT x10^3(ANC) 4.35 10*3/uL 1.88-7.09 (test code = 9567910266) IMM GRAN x10^3 (test 0.56 10*3/uL 0-0.06 H code = 8514865403) LYMPH x10^3 (test code 3.74 10*3/uL 1.32-3.29 H = 731-0) MONO x10^3 (test code 1.20 10*3/uL 0.33-0.92 H = 742-7) EOS x10^3 (test code = 0.29 10*3/uL 0.03-0.39 711-2) BASO x10^3 (test code 0.04 10*3/uL 0.01-0.07 = 704-7) REACT LYMPHS (test Rare code = 9814633210) Lab Interpretation Abnormal (test code = 81932-3) [facility] METABOLIC PANEL (NA, K, CL, CO2, GLUCOSE, BUN, CREATININE, CA)2020-07-31 10:50:00 Test Item Value Reference Range Interpretation Comments NA (test code = 135 mmol/L 135-145 2425907430) K (test code = 3.8 mmol/L 3.5-5 5056822877) CL (test code = 101 mmol/L 98-108 1272168716) CO2 TOTAL (test code = 27 mmol/L 23-31 4076275770) AGAP (test code = 2-16 9376695226) BUN (test code = 2 mg/dL 7-23 L 4341059730) GLUCOSE (test code = 132 mg/dL 70-110 H 3616359267) CREATININE (test code = 0.72 mg/dL 0.5-1.04 4471605704) CALCIUM (test code = 8.4 mg/dL 8.6-10.6 L 0329413609) eGFR Calculation mL/min/1.73m2 (Non-) (test code = 7202537482) eGFR Calculation mL/min/1.73m2 () (test code = 9900322257) RAUDEL (test code = RAUDEL) Association of [...] tests). Lab Interpretation Abnormal (test code = 75488-1) [facility]2020-09-16 10:50:00 Test Item Value Reference Range Interpretation Comments MAGNESIUM (test code = 5323979380) 1.2 mg/dL 1.7-2.4 L Lab Interpretation (test code = Abnormal 95787-3) [facility]2020-09-16 10:50:00 Test Item Value Reference Range Interpretation Comments PHOSPHORUS (test code = 6075980860) 3.8 mg/dL 2.5-5 Lab Interpretation (test code = Normal 83527-4) [facility] [id number] 15:48:00 Test Item Value Reference Range Interpretation Comments Case Report (test code Surgical Pathology ? ? = [id number]) ?Case: [id number] ? Authorizing Provider: ?Darren Clark MD ?Collected: ? 07/25/2020 1708 ?Ordering Location: ? ? [facility] OR ? Received: ?07/26/2020 0914 ? Department ? Pathologist: ? Deniz Joseph MD PHD ?Specimen: ? ?ABDOMEN, ILEOCECECTOMY ? Final Diagnosis (test y7wofYMeGLCcw7uvUPFdjCL code = 8296246553) uZzEwMzNcZnRuYmpcdWMxIH loksXbZFekn0AqZ7DcOqCjC FxhbnNpXGRlZmxhbmcxMDMz BPI9jrRfUFTkOWtiHFRdYLu mUp3vjVGonIamVzOrCUIkq9 qnrdKCnrkrkLs6d9qdFNEjF xQ6fXUoDDscD6cevoHxnAIc ZRHiPBj2hP74QIIkzI8bqCQ lAEfxdhWnXgA7MOzcECMqQp H7WCIdkTPfUPQpA2bpDOGvL TnyXSYbVWiexLKqKTN7vVdh u4R3xDZebOQrxJutTqZuShH vTGMRh9WvALf7tLulF6OrVM PkTlE4fDLbHZXeYOzoLJFeM FLkkmX7wC02KEroszF5bNOr z0Lrk20mt543aF8qhBXmZXY 5NTCbNILlyQXlYTWdXUN6XG KllIUuU7pbCJodQZ7vncemR XJ6QIuxVMHzhTsmPTeiJCLh BbTwbTTkCMIerHqrDLqwo40 9AQQ1UvFwMJ9hP3Tvf0M3tZ 9maXRcZGVmdGFiNzIwXGZvc y3ieHYvEHulr6SgAEH9aqI9 nSZwpAXpPZMdXK98Yqgkt5G vBmmpOEO5WDImlyCrf1Whw3 mmCiMhglEuY8gtZ8RrTKVcI OYjJGFaVpBabzFyi1Idh9On sXDgtGs9d6nrUSZdDVKkzAm ut8pbXCK2MWMtO7K9xFOnl7 ydEVktIEFadRI0hjVmEKOui MCaW5ZaiT6aXFelLR8pigz5 p4bbZhOiHT2sbiync9plYOo lSESdEEN4QaGgAGRly5Vnoo otPeOvt3JgzEEjRFdeS98os 218GLAcfzUaB9axlQSwakhv mLXyyaihZUwijpD0BJOzRZH sYWluXGYxXGZzMjBcbGFuZz EwMzNcaGljaFxmMVxkYmNoX IPoBOkrS6pwAiAsJcThQVfy IEZkWK3gU80TIAljWD4VJGE QMK0SLNKVSFRPVDEMXIHPOX TMN7JPWXEDTQXZQ4TAQIKSM 37MZjfpJIZhFJGzOW3rP6PD TUVOVEFMIFNNQUxMIElOVEV TVElORSAgSVNDSEVNSUMgTk QGAd8XLCKuF9pNWXQZPiNEB 53ADrJLEHlHBo6IYsSQBK4K LCBccGFyICAgICAgICBTRUN YFcHUTagdEF1nMufHCo9SDP JeLYBJSRZZM19uBT8HYPSJX DdHVNHLN3PRQB2TJ1XPTGID XH1BOUqnKCFyIXCrQB2oP3C VQBSJATKWHz4SGrUAL39UAP AJKK2NICjDZKvaI8LQFVWIA 1NBTCBBTkQgVFJBTlNNVVJB XJJRQE4GGxSHBWhXJHusPLX qTGMwSV9eJl4dGPRCNTLWG4 BwB8CiLEKSLCCSHLFFN6vRU 1MgRElTRUFTRVxwYXIgICAg JB6sF6UEG6oPSXwyQZLFU8l OUyBBUkUgVklBQkxFIFxwYX UfJMGzXW8lRm8xYJJYBAdTP J0ODPWWKPZSDTwUBMDDAQRo ciAgICAgLSBBUFBFTkRJWCB RBZRNCPWJOt7OGYJVLcQlrY FyXHBhclxwbGFpblxmMVxmc eTuQLoobjxgJCJmQDriS9ge TiLyUZDfhCjnGEulu5TrGCJ xTYDqUbjfocGrFBmaPO13KH 1dKMM1DBAFBTFeLY9zNC9zI DIwIFxwbGFpblxmMVxmczIw KYkwpusnHRIzRMkaI6iyKjD qAEMynVkkKHbpb7HlPPJwTX ZzMjBccGFyfXtccnRmMVxzc 2PuC2HsFjDwZHnwiwPyAJWz YefqcbjoHRIfDSD0vwYfUSW lBTixNFKkRAuwXe6llQVrrF gdOnEuLPRrz4krkhXNTFjaR hEbC021ACRnRLtrg9aml5Lv JIQkcYZvh8K3ZTQSwbazcIj 7j6mbVjFvXkS5tYYqCUemD6 egpiTftXWbI0KjcNOxyAm9z JiuA63nh6X5NsxuN2kfFMOz MEQyC5IiUE7dYGJqXnp4AIH 6AIK1PSWcIYOrN4UmOD8hQP MegVNkLIz4r6avyGewJTVkF AR1r3uwVJvcfeP5EK6gnw1n cLf0q8hilnQpIPHxHYNvuHY TQGEnK1MeoXjzQx6jvCi7cO leYniuLPG8Qvt3GA1dzi54m ky7sKehDIGuqrfsVhD1YAss VAWrxjwvIXf3DAfcJRLvoVL 8KXPjaUIbE6IsBBLoFG4wvf u6WAV5ZAxxPVJuTzV5BSDmo RCnATTwrQpgQKses288QZY5 ZvFqPH4jF3Npf0Q9wE8blAQ bGNTslHLdGhJcVNLkny7mtE GxRGuhy9CpFMX2umB5qATgk WXyTCOtKA96Minaf1XsQzvy UIP5HZGieeUas9Ake0ifCnA egqKrH9dtH2RpKLTdLLJpVU MiUlToqpWvz8Icf3BjqRTjw Sd9o0laJTQbWPDltErim7gz DBM3WTZtE9I1uMFsq9bcAKi qOLKqhGZ7nfU0LSHqwRLyS0 CeyF9uHANeXU6efyf4b1ruU PY8DMazFLFdDpV2ejE0SWPo vUGaDCXtmKwtZIfsh546PZJ 6RiLyLXLfd8TiT4VrlDthV4 7mgRxsX94pZACopJnkbN4td KrtcW9oExCvFgSpNDwbbKny bGFpblxmMVxmczIwXGxhbmc yNJRbLBkzV7lnSxIxKYXlpT uaSSvws2FkFPYuUNNvCcotz zIwXHBhciBJIGhhdmUgcGVy q73bIIpeeJIkUBXdIVkbXBT mkQlcb7NsN0miXS7yZ7JpdO PtdiFpooNlKZfqGZTvo9q1u YKpvJetp2ZfkBHlTZ80cqZl FNTvLRM3NKWpl5mqMF05fzk eOlEoeY24gcXgmhCwYBOwd1 goP2vtvRAny8Akt4JojyQtL Tvsq3GeOT1dnCFexyumtCG7 DDJjkPCundJldtK3zGphRPS wiQ1urK8wpIatnY4iHhTmQm UmXOpdXX8uIDFvO9rzaRPzR UEkFMKtM3agJxYmnU3wvZwj KvsdtiV7ZXTwph74 Clinical Information Crohn's 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 code = colon with complication 2841442537) [K50.119]SBO (small bowel obstruction) [K56.609] Gross Description c9vtnZJzEJGgfUKbYaYpNMX (test code = uQIKfd7bdKKJeiHInYoZuAv 0273280999) NcZnRuYmpcdWMxXGRlZmYwe 9dfl976iTKlw8dbEANwQtY6 eOXsWDGznJYeI554HHWqREf rz9qzg2GhCNIwuOWds9Q7UQ KTpgivoBj7gGtxX08rc2G0W sswH4dtXQKhHGFcC9CaPA6t XSNkGms1YFA7HVR8DLDpVRB jA3XsNP6wIEHszQWqKTn2s1 nboCqwYCNnAEH1v5vvKQbyk oZzSW2nrq0uoVb8a7muboOb TUEgJWItuKGJBGSjW3VzkGe qFf8mkKg6zBcsHzkxBMA1Lc i6RA4aaf01isv8bKiqJRGhz lezPfY2NFrfZDWgbsjmLIm1 ZEbrMGUicRQvCFWzcYMjH4W pUWikZH2wsyw3BrUbRY2ctf cfBDpdREVsXPY3WtQpUBEan 9UjtvofLeWcyl8lou53BAA5 v9SvoNniPMC3XZH9VqGqJm7 vdMMqGJTeAS1aJsSwhDCuTT Ruml91gDjfDFktfxVhrQ2pL zUzQFJhxOGpWVRsWR9ccAUm CIJyuY3ejtgaQAVrVkUeygt dIZSmwRwexoXkAv2bjTioDV C2IWrlL5sgxV2cIvU2IJfzZ 2onqG5uYQr4EBvciPT2NZAk aP6bBV2iucghb2lsPCV7VPb uQKYgmjD3ceZgBSBmcLEgC5 IteT52FjJudSXiP4GwgW9vX BcuUHSnacy5BsLwHl3qaZLf yVS8OXacLlpwUUlhYGQafnI vbnRccGduZGVjXHBsYWluXH BsYWluXGYwXGZzMjRccWxcc IsmpY3dGbLzVfDdZMdxRB6g FWCmT7uhfITiGKRmFZRuT8z xKtGbtR6jxMwiDJlkdbFuDV NwZWNpbWVuIEEgaXMgcmVjZ Vz6QPNrnG8uVw4bkNOptA9h yMFcCJbyJIR9gZZdJPMfTQL sVDYkOG24V9PzydIrZZfpEA xsqtExJoBzEIBrSJWwh57sx qqcbNxdx6HxY7CyeZ4daUXb ZK4iBGAazdWgh6CtNP0wDHJ tk89ibTwpBv56PXhhl8DklG VudCAoNjYuOCBjbSBpbiBsZ U3hqIsfyGTxnTRjJPDrhxLx CV9ovP9dOXCil88eBa03MI0 aNy8qRKHxCFI4vEHdGRJ5dP IspWHoSYIavWViGHh5ZZz5T nhbC65lpM1jmRHcU7IlRDqf OX84YSJgEKqqCEEvEC0buWA yKSBhbmQgcHJveGltYWwgY2 ZteG4xATCsMQUzCCJqr7Feq HRrpVKlMQ4izF9ygELrmRDn YMNqHXWvMGO7nyZuzmI6SGS uZQPbOPUjLY9ybbGuBZqbKn LiwgQiB3Dwi2DkpMOnvCwhi VYwWVQvwg44I7mciVRehWCf ryAgJT4xzYgnz7s1rLT1eSJ sdSFlTUPmDTPqxZ1sFYOos2 kuoKMaEKOxUEImwGQ9FYbqu AVvO3hfth6qWAzmNBFjMXOl nJKoPQqmUH4iON9sBPLfesX tMH1nd4ZcwZSiwSGgbZg9LC OtLYBtwqSrxQMqRO1vlhPuY GxuSmQjsB6xkbAaFISnppNk bnRzIHdpdGggYSBkYXJrLWJ oj1xzMHNvJOX8RI4zVDKtuS Nkv3NwKXP3OPKlO6Tgy2Cvb OJ3uYhzm30yb9SvKC1mDZUb PN7eWEhkyyAaXATwVY72uGZ fqSxlKFGur7XfpYJplPFlBV ElwFcvk0lyQD5dNZSxZBZjH DAuMSBjbSBpbiBncmVhdGVz eBQpiI6vyfIqi79vJFisQ3I 9AQTvPTKkmDjlUMNzd2BcyU ZaeYD9kA6aJa0qbCHgKg4cB EIzh24qCMZtNDSlob0ej6v2 QNtyXE37vRFuXBGiPLjxHWL ccGFyIFRoZSBhcHBlbmRpeC NwSYWlVI8dUSJ6BKUrCASew LFcoH48CVWoo5aqICNoZ7hm QUFaIHSsQGJlIQ0uwWfgDMQ jLSR6YMBlZvEkgTeuFZ0zVA CljCLhHJCesoaae57tv6XdU FKvin5jXTH7xORfFLAdPXQu YF2rMF48tKEpMx6hMSbtT51 tC4PmzUvhfz0jWYlfKKHgiY JoGAy8QJnwDZXpohkcqXu7F GDgC6Jui99fNRE6kpJiQVFg WNhjsPXeSReliU7xDF3jsRB wL9G2GLR6dmAaU4WqDRjvyZ gnBNVkhD5ajhXisIJycX9nc CBkaWFtZXRlciAwLjIgLSAw DcKoO04dJVPcuRtkTTZ2mMZ iEIGcq4sqLIZbQ3OxSL3ewO VyaWFsLiBXYWxsIHRoaWNrb wBkgeFbZR5jAICsEsHzjPLe IvCfURYcSwMdO16zVDWzbDD wk4HssZJ7uQWlFEIxK6Qux8 9vIDWbMSAtgPOxsZD8KGSlf Z3nXMVjNKVmMvrzTYTnsGJt OYDgI5Qqp89bP19jMOoefGL sMMLtDSCdWzIbbq45yE4udG GhlEK0zEAzCTBnmW6rHPDaH MHjI0GnoUTgOYGzAdCfiHO2 ECgsS7ZnRQqorTXgJ2bfFLF iNVPdKPFcseFntFp6EDbuCU FoFLT5VXzwLD7lEYEsvKF7N Wv3ZHeatyEdpcTtJJ62QRWz dtSvuLKjIPD7GyLvDVUiITG iclUcuUu5WGSmQUC5yT5lor AhNwW1ZCyqNPSpEDfeQ9r1B CDlz9Rol6fuMOFch9f0gPEu wZBcCOV6OPF3UlTxDEWlUJW pmmYvySz2BDGyHGK8dP5cvc WhPqJ1RHltTTElwXLanET1D IAci5BlbQLpiOiquSy1IVHv d17aoAKkgUyrPWrsrS1hIKv kdETmKDWlnnRMZYA1GSBfI4 Sld47uBU0xRXDosGWoAQk4C WLyGKbyZ2f8IDFzXTRfGV5a nCBtTQqur4CsIeagYZNkrH7 aMLFoFmb7HQetXIFglYIuy4 OemAV6dFWgFPHsb7LiVYGkH 1Bfv83gAXNkQMIfscAprmEw MgcbOYP3OIUzcCqcYTLeead pWZEjNd9pLK1zUCWimMVwRG TPHQQ0sPAwrsSrQVPytqBDR ZTrSY51kueodrIJRUJoJEZ4 oU7kf3lia6GoFfUXe1Ioi2X hbnQpXHBhcn0= Embedded Images (test code = 7161808180) [facility] METABOLIC PANEL (NA, K, CL, CO2, GLUCOSE, BUN, CREATININE, CA)2020-07-30 11:29:00 Test Item Value Reference Range Interpretation Comments NA (test code = 136 mmol/L 135-145 1877649817) K (test code = 3.8 mmol/L 3.5-5 Slight 1289906137) hemolysis CL (test code = 102 mmol/L 98-108 6375609910) CO2 TOTAL (test code 25 mmol/L 23-31 = 5520993032) AGAP (test code = 2-16 8238084671) BUN (test code = 2 mg/dL 7-23 L Slight 9630757417) hemolysis GLUCOSE (test code = 182 mg/dL 70-110 H 8692702605) CREATININE (test code 0.68 mg/dL 0.5-1.04 = 1665582286) CALCIUM (test code = 9.0 mg/dL 8.6-10.6 5229165706) eGFR Calculation mL/min/1.73m2 (Non-) (test code = 1796458442) eGFR Calculation mL/min/1.73m2 () (test code = 2276730033) RAUDEL (test code = RAUDEL) Association of [...] tests). Lab Interpretation Abnormal (test code = 51109-0) [facility] 11:[facility]:00 Test Item Value Reference Range Interpretation Comments MAGNESIUM (test code = 5379927526) 1.4 mg/dL 1.7-2.4 L Lab Interpretation (test code = Abnormal 64729-7) [facility]2020-09-15 11:29:00 Test Item Value Reference Range Interpretation Comments PHOSPHORUS (test code = 2154167630) 3.6 mg/dL 2.5-5 Lab Interpretation (test code = Normal 43288-8) [facility]wayXR [id number] 14:01:19EXAM: XR KUB 07/29/2020 4:42 AM. INDICATION: [...] reviewed this study and agree with theabove report.[facility], Radiant Results Inft User - 07/29/2020 9:02 [...] with minormodifications (no call needed tothe referring physician).Shahriar Caban MD., have reviewed this study and agree with theabove report.[facility]OL[facility] (NA, K, CL, CO2, GLUCOSE, BUN, CREATININE, CA)2020-07-29 12:26:00 Test Item Value Reference Range Interpretation Comments NA (test code = 137 mmol/L 135-145 2025838306) K (test code = 3.4 mmol/L 3.5-5 L 5490484121) CL (test code = 102 mmol/L 98-108 3348005591) CO2 TOTAL (test code = 31 mmol/L 23-31 9813463437) AGAP (test code = 2-16 6736503595) BUN (test code = 3 mg/dL 7-23 L 5443076007) GLUCOSE (test code = 118 mg/dL 70-110 H 2197937873) CREATININE (test code = 0.81 mg/dL 0.5-1.04 6139715945) CALCIUM (test code = 9.4 mg/dL 8.6-10.6 8128707196) eGFR Calculation mL/min/1.73m2 (Non-) (test code = 3611633432) eGFR Calculation mL/min/1.73m2 () (test code = 7884183756) RAUDEL (test code = RAUDEL) Association of [...] tests). Lab Interpretation Abnormal (test code = 98602-8) [facility]2020-09-14 11:05:00 Test Item Value Reference Range Interpretation Comments Fibrinogen (test code = 1089 mg/dL 167-453 H 6753641218) Lab Interpretation (test code = Abnormal 46600-2) [facility]2020-09-14 10:58:00 Test Item Value Reference Range Interpretation Comments APTT Patient (test code = See_Comment [ Automated message] 3173-2) The system [employer] generated this result transmitted ref erence range: 26 - 36 Seconds. The re ference range was not u sed to interpret this result as normal/abnor mal. Lab Interpretation (test Normal code = 63483-4) [facility]wayPROTHROMBIN TIME / [id number] 10:58:00 Test Item Value Reference Range Interpretation Comments PROTIME PATIENT (test See_Comment [Auto mated message] code = 5964-2) The system [employer] generated this result transmitted ref erence range: 10.1 - 1 2.6 Seconds. The re ference range was not u sed to interpret this result as normal/abnor mal. INR (test code = 6301-6) Nor mal INR <1.1; Warfarin Therap eutic range 2.0 to 3. 0 or 2.5 to 3.5, dep ending upon the indica tions. Lab Interpretation (test Normal code = 53198-5) [facility] LakewayCBC WITHOUT [id number] 10:54:00 Test Item Value Reference Range Interpretation Comments WBC (test code = 6690-2) See_Comment [A utomated message] The system [employer] generated this result transmit carl reference range : 4.30 - 11.10 10*3/?L. The reference range was not used to interpret this result as normal/abnormal . RBC (test code = 789-8) See_Comment L [Au tomated message] The system [employer] generated this result transmit carl reference range [...] 777-3) See_Comment [Au tomated message] The system [employer] generated this result transmit carl reference range : 166 - 358 10*3/?L. The reference range was not used to interpret this result as normal/abnormal . MPV (test code = 10.0 fL 9.5-12.9 25359-4) RDW-CV (test code = 12.0 % 12-15.5 788-0) RDW-SD (test code = 43.2 fL 39-49.9 89689-7) NRBC x10^3 (test code = <0.01 See_Comment [Au tomated message] 1557383894) The system [employer] generated this result transmit carl reference range : 10*3/?L. The reference range was not used to interpret this result as normal/abnormal . NRBC/100 WBC (test code See_Comment [Au tomated message] = 2131122965) The system [employer] generated this result transmit carl reference range : 0.0 - 10.0 /100 WBC s. The reference r madelin was not used to interpret this result as normal/abnormal . IPF % (test code = 7121828841) Lab Interpretation (test Abnormal code = 54886-1) [facility] [id number] 22:01:00 Test Item Value Reference Range Interpretation Comments Blood Culture-Aerobic No organisms No growth Previo us (test code = 73980-5) isolated prelim inary verified result was Culture [...] Culture-Anaerobic isolated preliminar y (test code = 54621-6) verifi ed result was Culture In Progress [...] CDT Lab Interpretation Normal (test code = 39866-6) [facility] [id number] 22:01:00 Test Item Value Reference Range Interpretation Comments Blood Culture-Aerobic No organisms No growth Previo us (test code = 89471-7) isolated prelim inary verified result was Culture [...] Culture-Anaerobic isolated preliminar y (test code = 82026-8) verifi ed result was Culture In Progress [...] CDT Lab Interpretation Normal (test code = 51413-6) [facility] (NA, K, CL, CO2, GLUCOSE, BUN, CREATININE, CA)2020-07-28 12:34:00 Test Item Value Reference Range Interpretation Comments NA (test code = 135 mmol/L 135-145 3409705802) K (test code = 3.6 mmol/L 3.5-5 9725481238) CL (test code = 105 mmol/L 98-108 8204640547) CO2 TOTAL (test code = 24 mmol/L 23-31 3600453525) AGAP (test code = 2-16 2371507054) BUN (test code = 3 mg/dL 7-23 L 6015996952) GLUCOSE (test code = 132 mg/dL 70-110 H 7839697729) CREATININE (test code = 0.68 mg/dL 0.5-1.04 6337412510) CALCIUM (test code = 8.6 mg/dL 8.6-10.6 9052343519) eGFR Calculation mL/min/1.73m2 (Non-) (test code = 8679359919) eGFR Calculation mL/min/1.73m2 () (test code = 2825793371) RAUDEL (test code = RAUDEL) Association of [...] tests). Lab Interpretation Abnormal (test code = 32057-3) [facility] WITHOUT [id number] 10:46:00 Test Item Value Reference Range Interpretation Comments WBC (test code = 6690-2) See_Comment [A utomated message] The system [employer] generated this result transmit carl reference range : 4.30 - 11.10 10*3/?L. The reference range was not used to interpret this result as normal/abnormal . RBC (test code = 789-8) See_Comment L [Au tomated message] The system [employer] generated this result transmit carl reference range [...] 777-3) See_Comment [Au tomated message] The system [facility] generated this result transmit carl reference range : 166 - 358 10*3/?L. The reference range was not used to interpret this result as normal/abnormal . MPV (test code = 10.0 fL 9.5-12.9 28746-4) RDW-CV (test code = 12.0 % 12-15.5 788-0) RDW-SD (test code = 42.5 fL 39-49.9 84730-8) NRBC x10^3 (test code = <0.01 See_Comment [Au tomated message] 8757912169) The system [employer] generated this result transmit carl reference range : 10*3/?L. The reference range was not used to interpret this result as normal/abnormal . NRBC/100 WBC (test code See_Comment [Au tomated message] = 8174106376) The system [facility] generated this result transmit carl reference range : 0.0 - 10.0 /100 WBC s. The reference r madelin was not used to interpret this result as normal/abnormal . IPF % (test code = 9593574997) Lab Interpretation (test Abnormal code = 19176-8) [facility] METABOLIC PANEL (NA, K, CL, CO2, GLUCOSE, BUN, CREATININE, CA)2020-07-27 11:40:00 Test Item Value Reference Range Interpretation Comments NA (test code = 134 mmol/L 135-145 L 5485953578) K (test code = 3.7 mmol/L 3.5-5 2073485631) CL (test code = 104 mmol/L 98-108 2413664354) CO2 TOTAL (test code = 29 mmol/L 23-31 3131720751) AGAP (test code = 2-16 L 3255514552) BUN (test code = 7 mg/dL 7-23 7193802930) GLUCOSE (test code = 169 mg/dL 70-110 H 3797306167) CREATININE (test code = 0.63 mg/dL 0.5-1.04 1966369188) CALCIUM (test code = 8.3 mg/dL 8.6-10.6 L 2465686274) eGFR Calculation mL/min/1.73m2 (Non-) (test code = 5260856759) eGFR Calculation mL/min/1.73m2 () (test code = 8146873259) RAUDEL (test code = RAUDEL) Association of [...] tests). Lab Interpretation Abnormal (test code = 91037-0) [facility] WITHOUT [id number] 11:18:00 Test Item Value Reference Range Interpretation Comments WBC (test code = 6690-2) See_Comment H [A utomated message] The system [employer] generated this result transmit carl reference range : 4.30 - 11.10 10*3/?L. The reference range was not used to interpret this result as normal/abnormal . RBC (test code = 789-8) See_Comment L [Au tomated message] The system [employer] generated this result transmit carl reference range [...] 777-3) See_Comment [Au tomated message] The system [employer] generated this result transmit carl reference range : 166 - 358 10*3/?L. The reference range was not used to interpret this result as normal/abnormal . MPV (test code = 10.8 fL 9.5-12.9 37972-4) RDW-CV (test code = 11.9 % 12-15.5 L 788-0) RDW-SD (test code = 43.5 fL 39-49.9 27514-0) NRBC x10^3 (test code = <0.01 See_Comment [Au tomated message] 6419887569) The system [employer] generated this result transmit carl reference range : 10*3/?L. The reference range was not used to interpret this result as normal/abnormal . NRBC/100 WBC (test code See_Comment [Au tomated message] = 4577648942) The system [employer] generated this result transmit carl reference range : 0.0 - 10.0 /100 WBC s. The reference r madelin was not used to interpret this result as normal/abnormal . IPF % (test code = 3374851694) Lab Interpretation (test Abnormal code = 67473-6) [facility] METABOLIC PANEL (NA, K, CL, CO2, GLUCOSE, BUN, CREATININE, CA)2020-07-26 09:39:00 Test Item Value Reference Range Interpretation Comments NA (test code = 136 mmol/L 135-145 8138078556) K (test code = 3.9 mmol/L 3.5-5 4069512642) CL (test code = 104 mmol/L 98-108 9761657380) CO2 TOTAL (test code = 28 mmol/L 23-31 0068037039) AGAP (test code = 2-16 0110672595) BUN (test code = 11 mg/dL 7-23 1170676096) GLUCOSE (test code = 136 mg/dL 70-110 H 6208637037) CREATININE (test code = 0.84 mg/dL 0.5-1.04 0192956873) CALCIUM (test code = 8.2 mg/dL 8.6-10.6 L 0438628549) eGFR Calculation mL/min/1.73m2 (Non-) (test code = 7081519659) eGFR Calculation mL/min/1.73m2 () (test code = 0446366377) RAUDEL (test code = RAUDEL) Association of [...] tests). Lab Interpretation Abnormal (test code = 48964-9) [facility] WITHOUT [id number] 08:44:00 Test Item Value Reference Range Interpretation Comments WBC (test code = 6690-2) See_Comment [A utomated message] The system [employer] generated this result transmit carl reference range : 4.30 - 11.10 10*3/?L. The reference range was not used to interpret this result as normal/abnormal . RBC (test code = 789-8) See_Comment L [Au tomated message] The system [employer] generated this result transmit carl reference range [...] See_Comment L [Au tomated message] The system [employer] generated this result transmit carl reference range : 166 - 358 10*3/?L. The reference range was not used to interpret this result as normal/abnormal . MPV (test code = 11.0 fL 9.5-12.9 67534-4) RDW-CV (test code = 11.8 % 12-15.5 L 788-0) RDW-SD (test code = 42.4 fL 39-49.9 61487-7) NRBC x10^3 (test code = <0.01 See_Comment [Au tomated message] 9432298937) The system [employer] generated this result transmit carl reference range : 10*3/?L. The reference range was not used to interpret this result as normal/abnormal . NRBC/100 WBC (test code See_Comment [Au tomated message] = 1146602695) The system [employer] generated this result transmit carl reference range : 0.0 - 10.0 /100 WBC s. The reference r madelin was not used to interpret this result as normal/abnormal . IPF % (test code = 8929358963) Lab Interpretation (test Abnormal code = 32991-0) [facility] (NA, K, CL, CO2, GLUCOSE, BUN, CREATININE, CA)2020-07-26 00:48:00 Test Item Value Reference Range Interpretation Comments NA (test code = 137 mmol/L 135-145 7966903692) K (test code = 4.5 mmol/L 3.5-5 8807937084) CL (test code = 102 mmol/L 98-108 0559124055) CO2 TOTAL (test code = 28 mmol/L 23-31 6992031150) AGAP (test code = 2-16 7242012069) BUN (test code = 13 mg/dL 7-23 5249085683) GLUCOSE (test code = 165 mg/dL 70-110 H 9259903275) CREATININE (test code = 0.92 mg/dL 0.5-1.04 2450678063) CALCIUM (test code = 8.5 mg/dL 8.6-10.6 L 3862861690) eGFR Calculation mL/min/1.73m2 (Non-) (test code = 5409939996) eGFR Calculation mL/min/1.73m2 () (test code = 6121402692) RAUDEL (test code = RAUDEL) Association of [...] tests). Lab Interpretation Abnormal (test code = 66970-7) [facility]wayMAGN[facility]2020-09-11 00:48:00 Test Item Value Reference Range Interpretation Comments MAGNESIUM (test code = 3840145484) 1.5 mg/dL 1.7-2.4 L Lab Interpretation (test code = Abnormal 25710-3) [facility] LakewayPROTHROMBIN TIME / [id number] 00:29:00 Test Item Value Reference Range Interpretation Comments PROTIME PATIENT (test See_Comment H [Auto mated message] code = 5964-2) The system [employer] generated this result transmitted ref erence range: 10.1 - 1 2.6 Seconds. The reference range was not used to int erpret this result as normal/abnormal . INR (test code = 6301-6) Nor mal INR <1.1; Warfarin Therap eutic range 2.0 to 3. 0 or 2.5 to 3.5, dep ending upon the indica tions. Lab Interpretation (test Abnormal code = 76964-9) [facility] LakewayaPTT2020-09-11 00:29:00 Test Item Value Reference Range Interpretation Comments APTT Patient (test code = See_Comment [ Automated message] 3173-2) The system [employer] generated this result transmitted ref erence range: 26 - 36 Seconds. The re ference range was not u sed to interpret this result as normal/abnor mal. Lab Interpretation (test Normal code = 82516-6) [facility] WITHOUT [id number] 00:24:00 Test Item Value Reference Range Interpretation Comments WBC (test code = 6690-2) See_Comment H [A utomated message] The system [employer] generated this result transmit carl reference range : 4.30 - 11.10 10*3/?L. The reference range was not used to interpret this result as normal/abnormal . RBC (test code = 789-8) See_Comment L [Au tomated message] The system [employer] generated this result transmit carl reference range [...] 777-3) See_Comment [Au tomated message] The system [employer] generated this result transmit carl reference range : 166 - 358 10*3/?L. The reference range was not used to interpret this result as normal/abnormal . MPV (test code = 10.8 fL 9.5-12.9 39935-6) RDW-CV (test code = 12.0 % 12-15.5 788-0) RDW-SD (test code = 44.0 fL 39-49.9 83000-6) NRBC x10^3 (test code = <0.01 See_Comment [Au tomated message] 6222986065) The system whic h generated this result transmit carl reference range : 10*3/?L. The reference range was not used to interpret this result as normal/abnormal . NRBC/100 WBC (test code See_Comment [Au tomated message] = 1347318873) The system [employer] ch generated this result transmit carl reference range : 0.0 - 10.0 /100 WBC s. The reference r madelin was not used to interpret this result as normal/abnormal . IPF % (test code = 8235947228) Lab Interpretation (test Abnormal code = 28571-8) [facility] METABOLIC PANEL (NA, K, CL, CO2, GLUCOSE, BUN, CREATININE, CA)2020-07-25 12:05:00 Test Item Value Reference Range Interpretation Comments NA (test code = 137 mmol/L 135-145 5947108839) K (test code = 4.0 mmol/L 3.5-5 0360837794) CL (test code = 104 mmol/L 98-108 5275661285) CO2 TOTAL (test code = 28 mmol/L 23-31 6301067743) AGAP (test code = 2-16 4068864337) BUN (test code = 13 mg/dL 7-23 8017176269) GLUCOSE (test code = 207 mg/dL 70-110 H 1166366996) CREATININE (test code = 0.79 mg/dL 0.5-1.04 5786085373) CALCIUM (test code = 8.5 mg/dL 8.6-10.6 L 7696819700) eGFR Calculation mL/min/1.73m2 (Non-) (test code = 6233010607) eGFR Calculation mL/min/1.73m2 () (test code = 2104095333) RAUDEL (test code = RAUDEL) Association of [...] tests). Lab Interpretation Abnormal (test code = 73487-6) [facility] WITHOUT [id number] 12:02:00 Test Item Value Reference Range Interpretation Comments WBC (test code = 6690-2) See_Comment H [A utomated message] The system [employer] generated this result transmit carl reference range : 4.30 - 11.10 10*3/?L. The reference range was not used to interpret this result as normal/abnormal . RBC (test code = 789-8) See_Comment L [Au tomated message] The system [employer] generated this result transmit carl reference range [...] 777-3) See_Comment [Au tomated message] The system [employer] generated this result transmit carl reference range : 166 - 358 10*3/?L. The reference range was not used to interpret this result as normal/abnormal . MPV (test code = 10.9 fL 9.5-12.9 98577-9) RDW-CV (test code = 12.1 % 12-15.5 788-0) RDW-SD (test code = 43.3 fL 39-49.9 14389-5) NRBC x10^3 (test code = <0.01 See_Comment [Au tomated message] 8156534406) The system [employer] generated this result transmit carl reference range : 10*3/?L. The reference range was not used to interpret this result as normal/abnormal . NRBC/100 WBC (test code See_Comment [Au tomated message] = 6092183467) The system [employer] ch generated this result transmit carl reference range : 0.0 - 10.0 /100 WBC s. The reference r madelin was not used to interpret this result as normal/abnormal . IPF % (test code = 9534616609) Lab Interpretation (test Abnormal code = 10531-1) [facility] LakewayABORH [id number] 08:01:35 Test Item Value Reference Range Interpretation Comments ABO & RH (test code A Positive Performe d at [facility] = 20) Laboratory [facility] Blood Bank3 [facility] s [id number] Free: [phone] A No. [id number] [facility] LakewayType and Screen - ONCE [id number] 05:04:45 Test Item Value Reference Range Interpretation Comments ABO & RH (test code A POSITIVE Performe d at [facility] = 20) Laboratory [facility] Blood Bank3 [facility] s [address]Fbqo Free: [phone] A No. [id number] IAT (test code = Negative Performed a t [facility] 1185) Laboratory [facility] Blood Bank3 [facility] s [address]Pjbb Free: [phone] A No. [id number] [facility] LakewayXR ABDOMEN 1 [id number] 13:39:15EXAM: XR ABDOMEN 1 VW 07/24/2020 1:46 [...] reviewed this study and agree with theabove report.[facility], Radiant Results Inft User - [...] reviewed this study and agree with theabove report.[facility]BA[facility] (NA, K, CL, CO2, GLUCOSE, BUN, CREATININE, CA) 2020-07-24 08:29:00 Test Item Value Reference Range Interpretation Comments NA (test code = 137 mmol/L 135-145 6718315323) K (test code = 4.1 mmol/L 3.5-5 Slight 9186654308) hemolysis CL (test code = 102 mmol/L 98-108 3035327511) CO2 TOTAL (test code 24 mmol/L 23-31 = 2769840491) AGAP (test code = 2-16 7792059378) BUN (test code = 19 mg/dL 7-23 Slight 7313004548) hemolysis GLUCOSE (test code = 170 mg/dL 70-110 H 5036469890) CREATININE (test code 0.93 mg/dL 0.5-1.04 = 1369708327) CALCIUM (test code = 8.9 mg/dL 8.6-10.6 3521572140) eGFR Calculation mL/min/1.73m2 (Non-) (test code = 0867882590) eGFR Calculation mL/min/1.73m2 () (test code = 0958982654) RAUDEL (test code = RAUDEL) Association of [...] tests). Lab Interpretation Abnormal (test code = 17530-9) [facility] WITHOUT [id number] 08:27:00 Test Item Value Reference Range Interpretation Comments WBC (test code = See_Comment H [Automated message] 6690-2) The system [employer] generated this result transmitted ref erence range: 4.30 - 1 1.10 10*3/?L. The reference range was not used to int erpret this result as normal/abnormal . RBC (test code = 789-8) See_Comment [Au tomated message] The system [employer] generated this result transmitted ref erence range: [...] 777-3) See_Comment [Au tomated message] The system [employer] generated this result transmitted ref erence range: 166 - 35 8 10*3/?L. The reference range was not used to int erpret this result as normal/abnormal . MPV (test code = 11.0 fL 9.5-12.9 13782-6) RDW-CV (test code = 12.0 % 12-15.5 788-0) RDW-SD (test code = 41.5 fL 39-49.9 65113-5) NRBC x10^3 (test code = <0.01 See_Comment [Au tomated message] 4326361303) The system [employer] generated this result transmitted ref erence range: 10*3/?L. The reference range was not used to int erpret this result as normal/abnormal . NRBC/100 WBC (test code See_Comment [Au tomated message] = 9717607501) The system [facility] generated this result transmitted ref erence range: 0.0 - 10 .0 /100 WBCs. The reference range was not used to int erpret this result as normal/abnormal . IPF % (test code = 5.7 % 1.3-7.7 Platelet count 7126415158) measured by fluorescence me thod. Lab Interpretation Abnormal (test code = 69659-3) [facility]wayCOVID-19 (ID NOW RAPID TESTING)2020-07-24 01:08:00 Test Item Value Reference Range Interpretation Comments SARS-CoV-2 Rapid ID NOW Not Detected Not Detected (test code = 33910-7) RAUDEL (test code = RAUDEL) ID NOW COVID-19 Assay is an isothermal nucleic acid amplification test intended for the qualitative detection of nucleic acid from SARS-CoV-2 viral RNA in nasopharyngeal (RESIDENT DIRECTOR) specimens. It is used under Emergency Use [...] indicated. Lab Interpretation Normal (test code = 69436-7) [facility] LakewayLactic Acid Whole [id number] 00:34:00 Test Item Value Reference Range Interpretation Comments LACTIC ACID (test code = 3.03 mmol/L 2710478466) [facility] LakewayLactic Acid Whole [id number] 21:59:00 Test Item Value Reference Range Interpretation Comments LACTIC ACID (test code = 2.30 mmol/L 3458780614) [facility] LakewayCT ABDOMEN PELVIS W [id number] 21:22:06CT Abdomen and Pelvis with intravenous contrast. [...] however, findings are not suggestive ofacute appendicitis. [facility] Metabolic Panel (NA, K, CL, CO2, GLUCOSE, BUN, CREATININE, CA)2020-07-23 20:11:00 Test Item Value Reference Range Interpretation Comments NA (test code = 137 mmol/L 135-145 5016794578) K (test code = 3.3 mmol/L 3.5-5 L 3754101766) CL (test code = 97 mmol/L 98-108 L 8031957415) CO2 TOTAL (test code = 25 mmol/L 23-31 6188308786) AGAP (test code = 2-16 5157118088) BUN (test code = 18 mg/dL 7-23 9998958860) GLUCOSE (test code = 236 mg/dL 70-110 H 1622079507) CREATININE (test code = 0.94 mg/dL 0.5-1.04 6752231204) CALCIUM (test code = 10.4 mg/dL 8.6-10.6 6424273073) eGFR Calculation mL/min/1.73m2 (Non-) (test code = 4544214906) eGFR Calculation mL/min/1.73m2 () (test code = 3529198240) RAUDEL (test code = RAUDEL) Association of [...] tests). Lab Interpretation Abnormal (test code = 49535-1) [facility] LakewayHepatic Function Panel (ALB, T.PRO, BILI T, BU/BC, ALT, AST, ALK PHOS)2020-07-23 20:11:00 Test Item Value Reference Range Interpretation Comments TOTAL BILI (test code = 8267336222) 1.0 mg/dL 0.1-1.1 BILI UNCON (test code = 7517025700) 1.0 mg/dL 0.1-1.1 BILI CONJ (test code = 0617590534) 0.0 mg/dL 0-0.3 T PROTEIN (test code = 4349777373) 8.9 g/dL 6.3-8.2 H ALBUMIN (test code = 1769182568) 4.7 g/dL 3.5-5 ALK PHOS (test code = 4466843435) 77 U/L 34-122 ALTv (test code = 1742-6) 19 U/L 5-35 AST(SGOT) (test code = 8684717036) 24 U/L 13-40 Lab Interpretation (test code = Abnormal 62299-2) [facility] LakewayLipase [id number] 20:11:00 Test Item Value Reference Range Interpretation Comments LIPASE (test code = 4498207805) 26 U/L 0-220 Lab Interpretation (test code = Normal 84414-5) [facility] LakewayCB with [id number] 19:48:00 Test Item Value Reference Range Interpretation Comments WBC (test code = See_Comment H [Automated 6690-2) message] The system which generated this result transmit carl reference range : 4.30 - 11.10 10*3/?L. The reference range was not used to interpret this result as normal/abnormal . RBC (test code = See_Comment H [Automated 739-8) message] The system which generated this result [...] RDW-SD (test code = 39.7 fL 39-49.9 24881-4) RDW-CV (test code = 11.5 % 12-15.5 L 788-0) PLT (test code = See_Comment [Automated 777-3) message] The system which generated this result transmit carl reference range : 166 - 358 10*3/ ?L. The reference range was not u sed to interpret th is result as normal/abnormal . MPV (test code = 10.4 fL 9.5-12.9 56942-2) NRBC/100 WBC (test See_Comment [Automat ed code = 6292497173) message] The system which generated this result transmit carl reference range : 0.0 - 10.0 /100 WBCs. The reference range was not used to interpret this result as normal/abnormal . NRBC x10^3 (test code <0.01 See_Comment [Auto mated = 9943156278) message] The system which generated this result transmit carl reference range : 10*3/?L. The reference range was not used to interpret this result as normal/abnormal . GRAN MAT (NEUT) % 90.3 % (test code = 770-8) IMM GRAN % (test code 0.50 % = 5068683241) LYMPH % (test code = 5.4 % 736-9) MONO % (test code = 3.7 % 5905-5) EOS % (test code = 0.0 % 713-8) BASO % (test code = 0.1 % 706-2) GRAN MAT x10^3(ANC) 12.67 10*3/uL 1.88-7.09 H (test code = 0524741104) IMM GRAN x10^3 (test 0.07 10*3/uL 0-0.06 H code = 0658691102) LYMPH x10^3 (test code 0.76 10*3/uL 1.32-3.29 L = 731-0) MONO x10^3 (test code 0.52 10*3/uL 0.33-0.92 = 742-7) EOS x10^3 (test code = <0.03 0.03-0.39 L 711-2) BASO x10^3 (test code <0.03 0.01-0.07 = 704-7) Lab Interpretation Abnormal (test code = 25485-6) [facility] LakewayUrinalysis2020-09-08 19:37:00 Test Item Value Reference Range Interpretation Comments APPEARANCE (test code = Hazy Clear A 9459125969) COLOR (test code = Kathleen Yellow A 1928412073) PH (test code = 4.8-8.0 8203242100) SP GRAVITY (test code = 1.003-1.030 H 3241849565) GLU U QUAL (test code = 50 mg/dL Normal A 8976487757) BLOOD (test code = Negative Negative 9045751044) KETONES (test code = 80 mg/dL Negative A 4372425539) PROTEIN (test code = 100 mg/dL Negative A 2887-8) UROBILIN (test code = Normal Normal 8543050515) BILIRUBIN (test code = Negative Negative 1495539118) NITRITE (test code = Negative Negative 5711237957) LEUK CHELY (test code = Negative Negative 7539620496) RBC/HPF (test code = See_Comment [Autom ated message] 0159520627) The system [employer] generated this result transmit carl reference range : 0 - 3 HPF. The refe rence range was not u sed to interpret th is result as normal/abnormal . WBC/HPF (test code = See_Comment [Autom ated message] 5460922106) The system Language123 generated this result transmit carl reference range : 0 - 5 HPF. The refe rence range was not u sed to interpret th is result as normal/abnormal . BACTERIA (test code = Few Negative A 3267680068) MUCOUS (test code = Marked Negative LPF A 0876989034) SQ EPITH (test code = HPF 7789263086) Lab Interpretation (test Abnormal code = 85040-7) [facility] W [id number] 18:53:08CT Abdomen and Pelvis with intravenous contrast. [...] acute intra- abdominal or intrapelvic pathology detected. Rimb, Radiant Results Inft User - 06/15/2019 1:53 [...] tissues: Unremarkable.CONCLUSION: No acute intra-abdominalor intrapelvic pathology detected.[facility] (NA, K, CL, CO2, GLUCOSE, BUN, CREATININE, CA)2019-06-15 18:17:00 Test Item Value Reference Range Interpretation Comments NA (test code = 140 mmol/L 135-145 2445270190) K (test code = 3.5 mmol/L 3.5-5 0475269894) CL (test code = 105 mmol/L 98-108 5202403703) CO2 TOTAL (test code = 25 mmol/L 23-31 7508550406) AGAP (test code = 2-16 1158697296) BUN (test code = 10 mg/dL 7-23 8842041585) GLUCOSE (test code = 162 mg/dL 70-110 H 9937076539) CREATININE (test code = 0.81 mg/dL 0.5-1.04 4963409892) CALCIUM (test code = 8.7 mg/dL 8.6-10.6 2956049353) eGFR Calculation mL/min/1.73m2 (Non-) (test code = 7518192051) eGFR Calculation mL/min/1.73m2 () (test code = 7555675319) RAUDEL (test code = RAUDEL) Association of [...] tests). Lab Interpretation Abnormal (test code = 33180-5) [facility] Function Panel (ALB, T.PRO, BILI T, BU/BC, ALT, AST, ALK PHOS)2019-06-15 18:17:00 Test Item Value Reference Range Interpretation Comments TOTAL BILI (test code = 5992106441) 0.7 mg/dL 0.1-1.1 BILI UNCON (test code = 8857519312) 0.6 mg/dL 0.1-1.1 BILI CONJ (test code = 0897801444) 0.0 mg/dL 0-0.3 T PROTEIN (test code = 7437089609) 7.7 g/dL 6.3-8.2 ALBUMIN (test code = 2887250145) 4.2 g/dL 3.5-5 ALK PHOS (test code = 7076074966) 59 U/L 34-122 ALT(SGPT) (test code = 4707717078) 16 U/L 9-51 AST(SGOT) (test code = 3005249700) 20 U/L 13-40 Lab Interpretation (test code = Normal 44235-6) [facility]wayLipase [id number] 18:17:00 Test Item Value Reference Range Interpretation Comments LIPASE (test code = 3798326748) 48 U/L 0-220 Lab Interpretation (test code = Normal 54914-0) [facility]way[facility]inalysis2019-08-01 18:06:00 Test Item Value Reference Range Interpretation Comments APPEARANCE (test code Slightly Hazy Clear A = 9899432029) COLOR (test code = Yellow Yellow 8987871953) PH (test code = 4.8-8.0 7066794934) SP GRAVITY (test code >=1.030 1.003-1.030 = 6026001151) GLU U QUAL (test code Negative Negative = 7609634698) BLOOD (test code = Negative Negative 9741873748) KETONES (test code = Negative Negative 7800612803) PROTEIN (test code = Negative Negative 2887-8) UROBILIN (test code = 0.2 mg/dL See_Comment [Auto mated 7450664445) message] The system which generated this result transmit acrl reference range : 0-1.0 mg/dL. Th e reference range was not used to interpret this result as normal/abnormal . BILIRUBIN (test code = Negative Negative 5841397698) NITRITE (test code = Negative Negative 8453754180) LEUK CHELY (test code Negative Negative = 2108173125) RBC/HPF (test code = See_Comment [Autom ated 7006428239) message] The system which generated this result transmit carl reference range : 0 - 3 HPF. The reference range was not used to interpret this result as normal/abnormal . WBC/HPF (test code = See_Comment [Autom ated 6626328417) message] The system which generated this result transmit carl reference range : 0 - 5 HPF. The reference range was not used to interpret this result as normal/abnormal . BACTERIA (test code = Moderate Negative A 6332994292) MUCOUS (test code = Moderate Negative LPF A 4864807306) SQ EPITH (test code = HPF 3160400681) CA OXALATE (test code See_Comment H [Auto mated = 1654543924) message] The system which generated this result transmit carl reference range : <=1 HPF. The reference range was not used to interpret this result as normal/abnormal . Lab Interpretation Abnormal (test code = 57373-5) [facility]wayLactic Acid Whole [id number] 17:57:00 Test Item Value Reference Range Interpretation Comments LACTIC ACID (test code = 1.94 mmol/L 0.5-2.2 5503839191) Lab Interpretation (test code = Normal 94614-2) [facility]wayCB WITH [id number] 17:56:00 Test Item Value Reference Range Interpretation [...] RDW-SD (test code = 41.2 fL 39-49.9 72604-8) RDW-CV (test code = 11.7 % 12-15.5 L 788-0) PLT (test code = See_Comment [Automated 777-3) message] The sy stem which generated this result transmitted reference range : 166 - 358 10*3/ ?L. The reference r madelin was not used to interpret this result as normal/abnormal . MPV (test code = 10.0 fL 9.5-12.9 68704-9) NRBC/100 WBC (test See_Comment [Automat ed code = 8596782659) message] The system which generated this result transmitted reference range : 0.0 - 10.0 /100 WBCs. The refer ence range was not u sed to interpret th is result as normal/abnormal . NRBC x10^3 (test code <0.01 See_Comment [Auto mated = 0822526024) message] The s ystem which generated this result transmitted reference range : 10*3/?L. The reference range was not used to interpret this result as normal/abnormal . GRAN MAT (NEUT) % 72.9 % (test code = 770-8) IMM GRAN % (test code 0.10 % = 9076978298) LYMPH % (test code = 21.6 % 736-9) MONO % (test code = 4.3 % 5905-5) EOS % (test code = 0.7 % 713-8) BASO % (test code = 0.4 % 706-2) GRAN MAT x10^3(ANC) 4.88 10*3/uL 1.88-7.09 (test code = 9734858065) IMM GRAN x10^3 (test <0.03 0-0.06 code = 2939409532) LYMPH x10^3 (test code 1.45 10*3/uL 1.32-3.29 = 731-0) MONO x10^3 (test code 0.29 10*3/uL 0.33-0.92 L = 742-7) EOS x10^3 (test code = 0.05 10*3/uL 0.03-0.39 711-2) BASO x10^3 (test code 0.03 10*3/uL 0.01-0.07 = 704-7) Lab Interpretation Abnormal (test code = 96632-3) [facility]wayPOCT Test, [id number] 17:24:00 Test Item Value Reference Range Interpretation Comments POCT PREG (test code = 1605) negative On board controls acceptable with present C Line (test code = 3574) POCT PREG LOT # (test code = 3575) [id number] POCT PREG TEST DATE (test 11/14/20 code = 3576) Lab Interpretation (test code = Normal 72792-8) [facility]"
[2021-11-22] MEDS ORDERED: PROMETHAZINE INJ 25 MG/ML AMP ONE ×2 (14:07→15:24)
[2021-11-22] MEDS ORDERED: DIPHENHYDRAMINE 50 MG/ML VIAL ONE ×2 (14:07→15:24)
[2021-11-22] MEDS ORDERED: PANTOPRAZOLE 40 MG INJ ONE (14:08)
[2021-11-22] MEDS ORDERED: NA CHLORIDE 0.9% 1,000 ML ONE (14:08)
[2021-11-22] MEDS ORDERED: HYDROMORPHONE HCL 1 MG/ML INJ ONE ×2 (14:08→15:25)
[2021-11-22 14:43] LABS: Absolute Lymphocytes (CBC) 1.2 K/uL (0.7-4.9); Hematocrit 44.5 % (36.0-45.0); Lymphocytes % 47.6 % (15.3-44.8); MPV 8.8 fL (7.6-11.3); RBC Red Blood Cell Count 4.65 M/uL (3.86-4.86)
[2021-11-22 15:06] LABS: Albumin 3.7 g/dL (3.4-5.0); Bilirubin Direct 0.1 mg/dL (0-0.2); Bilirubin Total 0.8 mg/dL (0.2-1.0); Potassium 4.5 mmol/L (3.5-5.1); Protein, Total 8.8 g/dL (6.4-8.2)
--- NOTE | 2021-11-22 15:07 | RAD REPORT ---
EXAM DESCRIPTION: RAD - Chest Single View - 11/22/2021 2:47 pm CLINICAL HISTORY: CONGESTION Chest pain. COMPARISON: Chest Single View dated 08/02/2021; Chest Single View dated 06/15/2019; CHEST PA AND LAT 2 VIEW dated 09/22/2015; CHEST SINGLE VIEW dated 09/07/2015 FINDINGS: Portable technique limits examination quality. The lungs are grossly clear. The heart is normal in size. No displaced fractures. IMPRESSION: No acute intrathoracic process suspected.
--- NOTE | 2021-11-22 15:10 | RAD REPORT ---
EXAM DESCRIPTION: CTAbdomen Pelvis W Contrast - 11/22/2021 2:58 pm CLINICAL HISTORY: Abdominal pain. ABD PAIN COMPARISON: Abdomen Pelvis W Contrast dated 10/31/2021; Abdomen Pelvis W Contrast dated ; Abdomen Pelvis W Contrast dated 10/24/2020; Abdomen Pelvis W Contrast dated 06/15/2019 TECHNIQUE: Biphasic CT imaging of the abdomen and pelvis was performed with 100 ml non-ionic IV cont rast. All CT scans are performed using dose optimization technique as appropriate and may include automated exposure control or mA/KV adjustment according to patient size. FINDINGS: The lung bases are clear. The liver, spleen, pancreas, adrenal glands and kidneys are within normal limits. No bowel obstruction, free air, free fluid or abscess. Postsurgical changes noted right lower quadran t. The appendix is surgically absent. No evidence of significant lymphadenopathy. Prominent degenerative changes are present in both hips. IMPRESSION: No acute intra-abdominal or pelvic finding.
--- NOTE | 2021-11-22 15:20 | EDPHYS ---
Physician Documentation [facility] Name: Jessica Stearns Age: 46 yrs Sex: Female : 1975 Arrival Date: 11/22/2021 Time: 13:20 Bed 7 Private MD: MANOJ Physician Dominic Saez HPI: 11/22 13:45 This 46 yrs old Black Female presents to ER via Wheelchair with complaints of crohns ma2 flare, r/o covid. 13:45 The patient presents with abdominal pain. Onset: The symptoms/episode began/occurred ma2 gradually, 2 day(s) ago. Associated signs and symptoms: Pertinent negatives: blood in stools, diarrhea, fever, headache. Severity of pain: At its worst the pain was mild in the emergency department the pain is unchanged. The patient has experienced similar episodes in the past. Patient has Crohn's disease, had prior colostomy that was reversed, also had appendectomy done in the past, here with what seems to be flareup of her Crohn's disease she is here with right lower quadrant and left lower quadrant abdominal pain, that is being constant for 2 days which she usually gets with Crohn's disease in the past, she also states she has vomiting, pain is moderate to gradual. She also have cough runny nose.. 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 Pneumococcal vaccine is not up to date, Flu vaccine is not up to date. - Social history:: Smoking status: Patient reports the use of cigarette tobacco products, unknown amount Patient/guardian denies using alcohol, street drugs, The patient lives with family. - Family history:: not pertinent. ROS: 13:45 Constitutional: Negative for fever, chills, and weight loss. ma2 13:45 All other systems are negative. Exam: 13:45 Constitutional: This is a well developed, well nourished patient who is awake, alert, ma2 and in no acute distress. Head/Face: Normocephalic, atraumatic. Eyes: Pupils equal round and reactive to light, extra-ocular motions intact. Lids and lashes normal. Conjunctiva and sclera are non-icteric and not injected. Cornea within normal limits. Periorbital areas with no swelling, redness, or edema. ENT: Nares patent. No nasal discharge, no septal abnormalities noted. Tympanic membranes are normal and external auditory canals are clear. Oropharynx with no redness, swelling, or masses, exudates, or evidence of obstruction, uvula midline. Mucous membranes moist. Neck: Trachea midline, no thyromegaly or masses palpated, and no cervical lymphadenopathy. Supple, full range of motion without nuchal rigidity, or vertebral point tenderness. No Meningismus. Chest/axilla: Normal chest wall appearance and motion. Nontender with no deformity. No lesions are appreciated. Cardiovascular: Regular rate and rhythm with a normal S1 and S2. No gallops, murmurs, or rubs. Normal PMI, no JVD. No pulse deficits. Respiratory: Lungs have equal breath sounds bilaterally, clear to auscultation and percussion. No rales, rhonchi or wheezes noted. No increased work of breathing, no retractions or nasal flaring. Abdomen/GI: Tenderness to palpation in the lower abdomen both quadrants and suprapubic area, however soft, with, with normal bowel sounds. No distension or tympany. No guarding or rebound. No evidence of tenderness throughout. Back: No spinal tenderness. No costovertebral tenderness. Full range of motion. MS/ Extremity: Pulses equal, no cyanosis. Neurovascular intact. Full, normal range of motion. Neuro: Awake and alert, GCS 15, oriented to person, place, time, and situation. Cranial nerves II-XII grossly intact. Motor strength 5/5 in all extremities. Sensory grossly intact. Cerebellar exam normal. Normal gait. Vital Signs: 13:39 BP 103 / 88; Pulse 130; Resp 20 S; Temp 97.5(TE); Pulse Ox 100% on R/A; Weight 56.7 kg; jg9 Height 5 ft. 7 in. (170.18 cm) (R); 16:12 BP 125 / 94; Pulse 108; Resp 18; Pulse Ox 96% on R/A; tw2 13:39 Body Mass Index 19.58 (56.70 kg, 170.18 cm) j9 MDM: 13:45 Differential diagnosis: gastritis, gastroesophageal reflux disease, non-specific abd ma2 pain, pancreatitis. 13:47 Patient medically screened. ma2 15:18 Data reviewed: vital signs, nurses notes, old medical records, lab test result(s), EKG, ma2 radiologic studies. Test interpretation: by ED physician or midlevel provider: Lab work unremarkable except low white count, however patient now feels much better, CT abdomen unremarkable, she does have COVID, however saturation is 100 on room air. Patient feels much better and want to go home.. Counseling: I had a detailed discussion with the patient and/or guardian regarding: the historical points, exam findings, and any diagnostic results supporting the discharge/admit diagnosis, the presence of at least one elevated blood pressure reading (>120/80) during this emergency department visit, lab results, radiology results, the need for outpatient follow up. Medical screen evaluation completed. [facility] emergency medical condition absent. Response to treatment: the patient's symptoms have markedly improved after treatment. 11/22 13:27 Order name: Basic Metabolic Panel; Complete Time: 15:15 ny2 11/22 13:27 Order name: CBC with Diff ny2 11/22 13:27 Order name: Hepatic Function; Complete Time: 15:15 ny2 11/22 13:27 Order name: Lipase; Complete Time: 15:15 [facility] 11/22 13:27 Order name: SARS-COV-2 RT PCR (Document "Date of Onset" if Symptomatic); Complete Time: ma2 15:15 11/22 15:56 Order name: CBC Smear Scan EDMD 11/22 13:44 Order name: CT Abd/Pelvis - IV Contrast Only; Complete Time: 15:15 ny2 11/22 13:44 Order name: Chest Single View XRAY; Complete Time: 15:15 ma2 11/22 13:27 Order name: IV Saline Lock; Complete Time: 14:33 ma2 11/22 13:27 Order name: Labs collected and sent; Complete Time: 14:33 ma2 Administered Medications: 14:31 Drug: NS 0.9% 1000 ml Route: IV; Rate: 1 bolus; Site: right upper arm; ss 16:00 Follow up: Response: No adverse reaction; IV Status: Completed infusion; IV Intake: tw2 1000ml 14:31 Drug: Phenergan (promethazine) 25 mg Route: IVP; Site: right upper arm; tw2 14:45 Follow up: Response: No adverse reaction; Nausea is decreased tw2 14:33 Drug: Dilaudid (HYDROmorphone) 1 mg {Note: RASS 0.} Route: IVP; Site: right upper arm; tw2 15:36 Follow up: Response: No adverse reaction; Pain is decreased tw2 14:35 Drug: Benadryl (diphenhydrAMINE) 25 mg Route: IVP; Site: right upper arm; tw2 15:30 Follow up: Response: No adverse reaction tw2 14:37 Drug: Pantoprazole 40 mg Route: IVP; Site: right upper arm; tw2 15:36 Follow up: Response: No adverse reaction tw2 15:26 Drug: Phenergan (promethazine) 25 mg Route: IVP; Site: right upper arm; tw2 16:13 Follow up: Response: No adverse reaction tw2 15:29 Drug: Dilaudid (HYDROmorphone) 1 mg Route: IVP; Site: right upper arm; tw2 16:12 Follow up: Response: No adverse reaction; Pain is decreased; RASS: Alert and Calm (0) tw2 15:33 Drug: Benadryl (diphenhydrAMINE) 25 mg Route: IVP; Site: right upper arm; tw2 16:13 Follow up: Response: No adverse reaction tw2 Disposition Summary: 11/22/21 15:19 Discharge Ordered Location: Home ma2 Condition: Stable ma2 Diagnosis - Abdominal pain, unspecified ma2 - Coronavirus infection, unspecified ma2 Followup: ma2 - With: Private Physician - When: Tomorrow - Reason: If symptoms return Discharge Instructions: - Discharge Summary Sheet ma2 - Abdominal Pain, Adult ma2 - COVID-19 ma2 Forms: - Medication Reconciliation Form ma2 - Thank You Letter ma2 - Antibiotic Education ma2 - Prescription Opioid Use ma2 Prescriptions: - Zofran 4 mg Oral Tablet - take 1 tablet by ORAL route every 12 hours As needed; 20 tablet; Refills: 0, ma2 Product Selection Permitted - Diclofenac Sodium 75 mg Oral Tablet Sustained Release - take 1 tablet by ORAL route 2 times per day; 30 tablet; Refills: 0, Product ma2 Selection Permitted - Zithromax Z-Alan 250 mg Oral Tablet - take 1 tablet by ORAL route as directed for 5 days Day 1 - take two (2) tablets ma2 one time. Day 2, 3, 4 , 5 take one (1) tablet once daily.; 6 tablet; Refills: 0, Product Selection Permitted - Medrol (Alan) 4 mg Oral Tablets, Dose Pack - take 1 tablet by ORAL route as directed - follow package instructions; 1 ma2 packet; Refills: 0, Product Selection Permitted - Pepcid 20 mg Oral Tablet - take 1 tablet by ORAL route once daily; 20 tablet; Refills: 0, Product ma2 Selection Permitted Signatures: Dispatcher [employer] EDLillian Lopez RN RN ss Ester Ozuna RN RN tw2 Dominic Saez MD MD ma2 Kathleen Morris RN RN jg9
--- NOTE | 2021-11-22 15:20 | ER ---
Nurse's Notes [facility] Name: Jessica Stearns Age: 46 yrs Sex: Female : 1975 Arrival Date: 11/22/2021 Time: 13:20 Bed 7 Private MD: Diagnosis: Abdominal pain, unspecified;Coronavirus infection, unspecified Presentation: 11/22 13:39 Chief complaint: Patient states: I am having a Chrohns flare up-vomiting and pancreatic jg9 pain and I also was exposed to covid 7 days ago and have symptoms-chills headache, fatigue, but I also have those symptoms with my chrohns so reece, I was exposed, i lost my tastebuds. Coronavirus screen: Vaccine status: Patient reports being unvaccinated. Ebola Screen: Patient negative for fever greater than or equal to 101.5 degrees Fahrenheit, and additional compatible Ebola Virus Disease symptoms Patient denies exposure to infectious person. Patient denies travel to an Ebola-affected area in the 21 days before illness onset. Initial Sepsis Screen: Does the patient meet any 2 criteria? No. Patient's initial sepsis screen is negative. Does the patient have a suspected source of infection? No. Patient's initial sepsis screen is negative. Risk Assessment: Do you want to hurt yourself or someone else? Patient reports no desire to harm self or others. Onset of symptoms is unknown. 13:39 Method Of Arrival: Wheelchair jg9 13:39 Acuity: EVELIA 3 jg9 Triage Assessment: 13:43 General: Appears uncomfortable, Behavior is cooperative, anxious. Pain: Complains of jg9 pain in abdomen. 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 Pneumococcal vaccine is not up to date, Flu vaccine is not up to date. - Social history:: Smoking status: Patient reports the use of cigarette tobacco products, unknown amount Patient/guardian denies using alcohol, street drugs, The patient lives with family. - Family history:: not pertinent. Screenin:44 Abuse screen: Denies threats or abuse. Denies injuries from another. Nutritional jg9 screening: No deficits noted. Tuberculosis screening: No symptoms or risk factors identified. Fall Risk None identified. Assessment: 14:00 Reassessment: pt states "i want them to just get the iv by US because i am a hard tw2 stick", charge nurse ZARA Snyder. 14:50 Reassessment: pt moved to [place] via w/c with Lauren Rogers at this time. tw2 16:12 Reassessment: Patient appears in no apparent distress at this time. Patient is alert, tw2 oriented x 3, equal unlabored respirations, skin warm/dry/pink. Patient is alert/active/playful, equal unlabored respirations, skin warm/dry/pink. Patient states feeling better. Patient states symptoms have improved. Vital Signs: 13:39 BP 103 / 88; Pulse 130; Resp 20 S; Temp 97.5(TE); Pulse Ox 100% on R/A; Weight 56.7 kg; jg9 Height 5 ft. 7 in. (170.18 cm) (R); 16:12 BP 125 / 94; Pulse 108; Resp 18; Pulse Ox 96% on R/A; tw2 13:39 Body Mass Index 19.58 (56.70 kg, 170.18 cm) jg9 ED Course: 13:20 Patient arrived in ED. as 13:31 Sherman Redmond PA is PHCP. [facility] 13:31 Dominic Saez MD is Attending Physician. [facility] 13:42 Triage completed. jg9 13:43 Dominic Saez MD is Attending Physician. ma2 13:58 Arm band placed on. tw2 13:58 Bed in low position. Call light in reach. Pulse ox on. NIBP on. Warm blanket given. tw2 13:59 Ester Ozuna, RN is Primary Nurse. tw2 14:32 Inserted 20 gauge 10 cm power glide MIDLINE inserted to R upper arm. Pt tolerated well. ss Sterile procedure used. 14:46 Chest Single View XRAY In Process Unspecified. EDMS 14:58 CT Abd/Pelvis - IV Contrast Only In Process Unspecified. EDMS 16:15 No provider procedures requiring assistance completed. IV discontinued, intact, tw2 bleeding controlled, No redness/swelling at site. Pressure dressing applied. Administered Medications: 14:31 Drug: NS 0.9% 1000 ml Route: IV; Rate: 1 bolus; Site: right upper arm; ss 16:00 Follow up: Response: No adverse reaction; IV Status: Completed infusion; IV Intake: tw2 1000ml 14:31 Drug: Phenergan (promethazine) 25 mg Route: IVP; Site: right upper arm; tw2 14:45 Follow up: Response: No adverse reaction; Nausea is decreased tw2 14:33 Drug: Dilaudid (HYDROmorphone) 1 mg {Note: RASS 0.} Route: IVP; Site: right upper arm; tw2 15:36 Follow up: Response: No adverse reaction; Pain is decreased tw2 14:35 Drug: Benadryl (diphenhydrAMINE) 25 mg Route: IVP; Site: right upper arm; tw2 15:30 Follow up: Response: No adverse reaction tw2 14:37 Drug: Pantoprazole 40 mg Route: IVP; Site: right upper arm; tw2 15:36 Follow up: Response: No adverse reaction tw2 15:26 Drug: Phenergan (promethazine) 25 mg Route: IVP; Site: right upper arm; tw2 16:13 Follow up: Response: No adverse reaction tw2 15:29 Drug: Dilaudid (HYDROmorphone) 1 mg Route: IVP; Site: right upper arm; tw2 16:12 Follow up: Response: No adverse reaction; Pain is decreased; RASS: Alert and Calm (0) tw2 15:33 Drug: Benadryl (diphenhydrAMINE) 25 mg Route: IVP; Site: right upper arm; tw2 16:13 Follow up: Response: No adverse reaction tw2 Intake: 16:00 IV: 1000ml; Total: 1000ml. tw2 Outcome: 15:19 Discharge ordered by . ma2 16:15 Discharged to home via wheelchair. tw2 16:15 Condition: stable 16:15 Discharge instructions given to patient, Instructed on discharge instructions, follow up and referral plans. no drinking with medication, no driving heavy equipment, medication usage, Demonstrated understanding of instructions, follow-up care, medications, Prescriptions given X 5 16:16 Patient left the ED. tw2 Signatures: Dispatcher [employer] EDMS Sherman Redmond PA PA jmm Martinez, Amelia as Smirch, Shelby, RN RN ss Ester Ozuna RN RN tw2 Dominic Saez MD MD ma2 Kathleen Morris RN RN jg9
[2021-11-22 15:56] LABS: Blood Morphology Comment NOT SEEN (NOT SEEN); Platelet Estimate ADEQ; White Blood Cell Scan OK (OK)
[2021-11-22 16:29] VITALS: BP 125/94; O2SAT 96
[2021-11-22 16:31] VITALS: TEMP 97.5
== END 2021-11-22 16:16 | disposition home or self-care (01) ==
LOC: ER 13:18
DX: U07.1 COVID-19 (principal); Z72.0 Tobacco use; Z88.2 Allergy status to sulfonamides; Z88.5 Allergy status to narcotic agent; Z88.8 Allergy status to other drugs, medicaments and biological substances
CPT/HCPCS: 36415; 71045; 74177; 80048; 80076; 82565; 83690; 85025; 96361; 96374; 96375; 99284; C9113; J1170; J1200; J2550; J7030; Q9967; U0003

== ENCOUNTER 2022-03-10 17:39 | Emergency (ER) | payer SELFPAY ==
--- OUTSIDE RECORDS SUMMARY | 2022-03-10 17:53 | XMS REPORT | Continuity of Care Document ---
:1975 Author Organization [facility] t Address [address] [place] [address] Care Team Providers Name Role Phone Pcp, Does Not Have A Primary Care Physician KALEE Attending Clinician Unavailable Doctor Unassigned, Name Attending Clinician Unavailable IBRAHIMA KAPADIA Attending Clinician Unavailable Nina Villanueva Attending Clinician Unavailable Alfredo REPAIRER HELPER, W Attending Clinician Unavailable Gavin MONTANA Attending [...] Type Policy Number Effective Date Expiration Date [facility] MEDICAID SSI PENDING 2020 PENDING 00:00:00 Problems Condition Condition Condition Status Onset Resolution Last Treating Co mments Source Name Details Category Date Date Treatment Clinician Date E46 E46 Disease Active 2019-11 Univers Unspecifie Unspecifie 2-11 it y of d severe d severe 00:00: [place] protein-ca protein-ca 00 Me dical laly laly Branch malnutriti malnutriti on on Wound Wound Disease Active 2019-11 Univers dehiscence dehiscence 2-10 it y of 00:00: [address] Branch Elective Elective Disease Active 2019-11 Unive rs surgery surgery 12-14 ity of 00:00: [place] [facility] Branch Ileostomy Ileostomy Disease Active 2019-11 Overview: Univers care care 1-13 Formattin ity of 00:00: g of this [place] note Medical might be Branch different from the original. Added automatic ally from request for surgery [id number] Acute Acute Disease Active 2019-11 Univers renal renal 1-11 ity of failure failure 00:00: [address] Branch Renal Renal Disease Active 2020 Univers failure failure 1-11 ity of 00:00: [place] [facility] Branch E44.0 E44.0 Disease Active 2019-11 Univers [...] of generalize generalize 00:00: g of this [place] d d 00 note Medical might be Branch different from the original. Added automatic ally from request for surgery [id number] SBO (small SBO (small Disease Active U nivers bowel bowel 07-24 ity of obstructio obstructio 00:00: [place] n) 00 Medical Branch Crohn's Crohn's Disease Active Overview: Univ ers disease of disease of 07-23 Formattin ity of colon with colon with 00:00: g of this [place] complicati complicati 00 note Me dical on on might be Branch different from the original. Added automatic ally from request for surgery [id number] Sinus Sinus Disease Active 2018-11 Univers tachycardi tachycardi 0-09 it y of a a 00:00: [place] [facility] Pneumonia Pneumonia Disease Active 2018-11 [...] bowel bowel 00:00: [place] syndrome) syndrome) 00 [facility] Branch Depression Depression Disease Active 2010-11 U nivers 1-18 ity of 00:00: [place] 00 Medical Branch Allergies, Adverse Reactions, Alerts Allergy Allergy Status Severity Reaction(s) Onset Inactive Treating Comm ents Source Name Type Date Date Clinician fentanyl DA Active SV 2021-0 [facility] 2-26 Clear 00:00: [place] 00 [facility] fentanyl DA Active SV SOB/ 2020-0 [facility] 2-26 Clear 00:00: [place] 00 [facility] TRAMADOL DRUG Active ITCHING 2019-0 Univers INGREDI 9-15 ity of 00:00: [place] 00 Medical Branch Tramadol Propensi Active Swelling 2019-0 Univ ers ty to 9-15 ity of adverse 00:00: [place] reaction 00 Medical s Mobile FENTANYL DRUG Active Hives 2018-0 Univers HCL INGREDI 2-20 ity of 00:00: [place] 00 Medical Branch Fentanyl Propensi Active Hives 2018-0 Univer s Hcl ty to 2-20 ity of adverse 00:00: [place] reaction 00 [facility] metoclop DA Active [place] HIVES 2017-0 [facility] ramide 2-19 Clear HCl 00:00: Sol 00 [facility] ketorola DA Active [place] HIVES 2017-0 [facility] c 2-19 Clear trometha 00:00: Sol [facility] 00 [facility] ondanset DA Active [place] HIVES 2017-0 [facility] sondra HCl 2-19 Clear 00:00: [place] 00 [facility] Sulfa DA Active [place] HIVES 2017-0 [facility] (Sulfona 2-19 Clear mide 00:00: Sol Antibiot 00 [facility] ics) Medical [place] morphine DA Active U HIVES 2017-0 [facility] 2-19 Clear 00:00: Sol 00 [facility] codeine DA Active U HIVES 2017-0 [facility] 2-19 Clear 00:00: Sol 00 [facility] pentazoc DA Active U RASH 2017-0 [facility] ine 2-19 Clear 00:00: Sol 00 [facility] metoclop DA Active [place] 2017-0 [facility] ramide 2-19 Clear HCl 00:00: Sol 00 [facility] ketorola DA Active [place] 2017-0 [facility] c 2-19 Clear trometha 00:00: Sol mine 00 [facility] ondanset DA Active [place] 2017-0 [facility] sondra HCl 2-19 Clear 00:00: Sol 00 [facility] Sulfa DA Active [place] 2017-0 [facility] (Sulfona 2-19 Clear mide 00:00: Sol Antibiot [facility] morphine DA Active U 2017-0 [facility] 2-19 Clear 00:00: Sol 00 [facility] codeine DA Active U 2017-0 [facility] 2-19 Clear 00:00: Sol 00 [facility] pentazoc DA Active U 2017-0 [facility] ine 2-19 Clear 00:00: Sol 00 [facility] MORPHINE DRUG Active Low Hives 2016-0 Univers [...] Quantity Comments Source Exposure to Not sure [facility] SARS-CoV-2 [facility] (event) Branch Alcohol intake 2020-10-15 2020-10-15 Current [facility] 00:00:00 00:00:00 non-drinker of [facility] alcohol Mobile (finding) Tobacco use and 2020-09-16 2020-09-16 Never used Universit y of exposure 00:00:00 00:00:00 [facility] History SDOH 2020-07-24 2020-07-24 5 University o f Financial 00:00:00 00:00:00 [facility] Education 2020-07-24 2020-07-24 13 University 00:00:00 00:00:00 [facility] Tobacco Comment 2020-07-24 2020-07-24 2-3 Universit y of 00:00:00 00:00:00 cigerette/day [facility] al Branch Sex [birth year] At [birth year] Universit y of 00:00:00 00:00:00 [facility] Smoking Status Start Date Stop Date Source Current every day 2020-09-16 00:00:00 [facility] smoker Medical Branch Former smoker 2019-08-23 00:00:00 2019-08-23 00:00:00 Universi ty of [facility] Medications Ordered Filled Start [...] mg 02:00: First dose [place] 00 on [facility] 10/29/20 Branch at 2000, Until Discontinu ed, Routine simethicone 2019-11 Yes [id number] 80mg Take 1 Univers 80 mg 2-16 tablet by ity of chewable 00:00: mouth at [place] tablet 00 bedtime as Medical needed for Branch Gas. ciprofloxac 2019- Yes [id number] 500mg Take 1 Univers in HCl 500 2-16 tablet by ity of mg tablet 00:00: mouth [place] 00 every 12 Medical (twelve) Branch hours. metroNIDAZO 2019- Yes [id number] 500mg Take 1 Univers LE 500 mg 2-16 tablet by ity o f tablet 00:00: mouth [place] 00 every 8 Medical (eight) Branch hours. metoprolol 2019- Yes [id number] 25mg Take 1 Un thor tartrate 25 2-16 tablet by ity of mg tablet 00:00: mouth 2 [place] 00 (two) Medical times Branch daily. ciprofloxac 2019-11 Yes 500mg 500 mg, Un thor in HCl 2-16 Oral, ity of (CIPRO) 00:00: Q12HA2, [place] tablet 500 00 First dose Med ical mg on [facility] Branch 10/29/20 at 1800, Until Discontinu ed, LUISA
Re ason for Anti-Infec tive: Empiric Therapy for Suspected Infection< br>Empiric Therapy Site: Skin / Soft tissue
Duration of therapy: 7 days simethicone 2019- Yes [id number] 80mg Take 1 Univers 80 mg 2-16 tablet by ity of chewable 00:00: mouth at [place] tablet 00 bedtime as Medical needed for Branch Gas. ciprofloxac 2020- Yes [id number] 500mg Take 1 Univers in HCl 500 2-16 tablet by ity of mg tablet 00:00: mouth [place] 00 every 12 Medical (twelve) Branch hours. metroNIDAZO 2019-1 Yes [id number] 500mg Take 1 Univers LE 500 mg 2-16 tablet by ity o f tablet 00:00: mouth [place] 00 every 8 Medical (eight) Branch hours. metoprolol 2019- Yes [id number] 25mg Take 1 Un thor tartrate 25 2-16 tablet by ity of mg tablet 00:00: mouth 2 [place] 00 (two) Medical times Branch daily. simethicone 2019- Yes [id number] 80mg Take 1 Univers 80 mg 2-16 tablet by ity of chewable 00:00: mouth at [place] tablet 00 bedtime as Medical needed for Branch Gas. ciprofloxac 2019- Yes [id number] 500mg Take 1 Univers in HCl 500 2-16 tablet by ity of mg tablet 00:00: mouth [place] 00 every 12 Medical (twelve) Branch hours. metroNIDAZO 2019- Yes [id number] 500mg Take 1 Univers LE 500 mg 2-16 tablet by ity o f tablet 00:00: mouth [place] 00 every 8 Medical (eight) Branch hours. metoprolol 2019- Yes [id number] 25mg Take 1 Un thor tartrate 25 2-16 tablet by ity of mg tablet 00:00: mouth 2 [place] 00 (two) Medical times Branch daily. simethicone 2019- Yes [id number] 80mg Take 1 Univers 80 mg 2-16 tablet by ity of chewable 00:00: mouth at [place] tablet 00 bedtime as Medical needed for Branch Gas. ciprofloxac 2019- Yes [id number] 500mg Take 1 Univers in HCl 500 2-16 tablet by ity of mg tablet 00:00: mouth [place] 00 every 12 Medical (twelve) Branch hours. metroNIDAZO 2019- Yes [id number] 500mg Take 1 Univers LE 500 mg 2-16 tablet by ity o f tablet 00:00: mouth [place] 00 every 8 Medical (eight) Branch hours. metoprolol 2019- Yes [id number] 25mg Take 1 Un thor tartrate 25 2-16 tablet by ity of mg tablet 00:00: mouth 2 [place] 00 (two) Medical times Branch daily. simethicone 2020-1 Yes [id number] 80mg Take 1 Univers 80 mg 2-16 tablet by ity of chewable 00:00: mouth at [place] tablet 00 bedtime as Medical needed for Branch Gas. ciprofloxac 2019-1 Yes [id number] 500mg Take 1 Univers in HCl 500 2-16 tablet by ity of mg tablet 00:00: mouth [place] 00 every 12 Medical (twelve) Branch hours. metroNIDAZO 2019- Yes [id number] 500mg Take 1 Univers LE 500 mg 2-16 tablet by ity o f tablet 00:00: mouth [place] 00 every 8 Medical (eight) Branch hours. metoprolol 2019- Yes [id number] 25mg Take 1 Un thor tartrate 25 2-16 tablet by ity of mg tablet 00:00: mouth 2 [place] 00 (two) Medical times Branch daily. simethicone 2019- Yes [id number] 80mg Take 1 Univers 80 mg 2-16 tablet by ity of chewable 00:00: mouth at [place] tablet 00 bedtime as Medical needed for Branch Gas. ciprofloxac 2019- Yes [id number] 500mg Take 1 Univers in HCl 500 2-16 tablet by ity of mg tablet 00:00: mouth [place] 00 every 12 Medical (twelve) Branch hours. metroNIDAZO 2019-1 Yes [id number] 500mg Take 1 Univers LE 500 mg 2-16 tablet by ity o f tablet 00:00: mouth [place] 00 every 8 Medical (eight) Branch hours. metoprolol 2019- Yes [id number] 25mg Take 1 Un thor tartrate 25 2-16 tablet by ity of mg tablet 00:00: mouth 2 [place] 00 (two) Medical times Branch daily. simethicone 2019- Yes [id number] 80mg Take 1 Univers 80 mg 2-16 tablet by ity of chewable 00:00: mouth at [place] tablet 00 bedtime as Medical needed for Branch Gas. ciprofloxac 2019-1 Yes [id number] 500mg Take 1 Univers in HCl 500 2-16 tablet by ity of mg tablet 00:00: mouth [place] 00 every 12 Medical (twelve) Branch hours. metroNIDAZO 2019-1 Yes [id number] 500mg Take 1 Univers LE 500 mg 2-16 tablet by ity o f tablet 00:00: mouth [place] 00 every 8 Medical (eight) Branch hours. metoprolol 2019- Yes [id number] 25mg Take 1 Un thor tartrate 25 2-16 tablet by ity of mg tablet 00:00: mouth 2 [place] 00 (two) Medical times Branch daily. simethicone 2019- Yes [id number] 80mg Take 1 Univers 80 mg 2-16 tablet by ity of chewable 00:00: mouth at [place] tablet 00 bedtime as Medical needed for Branch Gas. ciprofloxac 2019- Yes [id number] 500mg Take 1 Univers in HCl 500 2-16 tablet by ity of mg tablet 00:00: mouth [place] 00 every 12 Medical (twelve) Branch hours. metroNIDAZO 2019- Yes [id number] 500mg Take 1 Univers LE 500 mg 2-16 tablet by ity o f tablet 00:00: mouth [place] 00 every 8 Medical (eight) Branch hours. metoprolol 2019-11 Yes [id number] 25mg Take 1 Un thor tartrate 25 2-16 tablet by ity of mg tablet 00:00: mouth 2 [place] 00 (two) Medical times Branch daily. simethicone 2019-11 Yes [id number] 80mg Take 1 Univers 80 mg 2-16 tablet by ity of chewable 00:00: mouth at [place] tablet 00 bedtime as Medical needed for Branch Gas. ciprofloxac 2019- Yes [id number] 500mg Take 1 Univers in HCl 500 2-16 tablet by ity of mg tablet 00:00: mouth [place] 00 every 12 Medical (twelve) Branch hours. metroNIDAZO 2019- Yes [id number] 500mg Take 1 Univers LE 500 mg 2-16 tablet by ity o f tablet 00:00: mouth [place] 00 every 8 Medical (eight) Branch hours. metoprolol 2019- Yes [id number] 25mg Take 1 Un thor tartrate 25 2-16 tablet by ity of mg tablet 00:00: mouth 2 [place] 00 (two) Medical times Branch daily. simethicone 2019- Yes [id number] 80mg Take 1 Univers 80 mg 2-16 tablet by ity of chewable 00:00: mouth at [place] tablet 00 bedtime as Medical needed for Branch Gas. ciprofloxac 2019- Yes [id number] 500mg Take 1 Univers in HCl 500 2-16 tablet by ity of mg tablet 00:00: mouth [place] 00 every 12 Medical (twelve) Branch hours. metroNIDAZO 2019- Yes [id number] 500mg Take 1 Univers LE 500 mg 2-16 tablet by ity o f tablet 00:00: mouth [place] 00 every 8 Medical (eight) Branch hours. metoprolol 2019- Yes [id number] 25mg Take 1 Un thor tartrate 25 2-16 tablet by ity of mg tablet 00:00: mouth 2 [place] 00 (two) Medical times Branch daily. simethicone 2019- Yes [id number] 80mg Take 1 Univers 80 mg 2-16 tablet by ity of chewable 00:00: mouth at [place] tablet 00 bedtime as Medical needed for Branch Gas. ciprofloxac 2019- Yes [id number] 500mg Take 1 Univers in HCl 500 2-16 tablet by ity of mg tablet 00:00: mouth [place] 00 every 12 Medical (twelve) Branch hours. metroNIDAZO 2019- Yes [id number] 500mg Take 1 Univers LE 500 mg 2-16 tablet by ity o f tablet 00:00: mouth [place] 00 every 8 Medical (eight) Branch hours. metoprolol 2019-11 Yes [id number] 25mg Take 1 Un thor tartrate 25 2-16 tablet by ity of mg tablet 00:00: mouth 2 [place] 00 (two) Medical times Branch daily. simethicone 2019- Yes [id number] 80mg Take 1 Univers 80 mg 2-16 tablet by ity of chewable 00:00: mouth at [place] tablet 00 bedtime as Medical needed for Branch Gas. ciprofloxac 2019- Yes [id number] 500mg Take 1 Univers in HCl 500 2-16 tablet by ity of mg tablet 00:00: mouth [place] 00 every 12 Medical (twelve) Branch hours. metroNIDAZO 2019- Yes [id number] 500mg Take 1 Univers LE 500 mg 2-16 tablet by ity o f tablet 00:00: mouth [place] 00 every 8 Medical (eight) Branch hours. metoprolol 2019-11 Yes [id number] 25mg Take 1 Un thor tartrate 25 2-16 tablet by ity of mg tablet 00:00: mouth 2 [place] 00 (two) Medical times Branch daily. ibuprofen 2020-1 2020- No [id number] 800mg Take 1 Univers 800 mg 2-16 12-31 tablet by ity of tablet 00:00: 05:59 mouth [place] 00 :00 every 6 Medical (six) Branch hours as needed for Pain (scale 1-3) for up to 14 days. proMETHazin 2019- 2020- No [id number] 25mg Take 1 Univers e 25 mg 2-16 12-31 tablet by ity of tablet 00:00: 05:59 mouth [place] 00 :00 every 8 Medical (eight) Branch hours as needed for Nausea and Vomiting (N/V) for up to 14 days. ibuprofen 2019-11- No [id number] 800mg Take 1 Univers 800 mg 2-16 12-31 tablet by ity of tablet 00:00: 05:59 mouth [place] 00 :00 every 6 Medical (six) Branch hours as needed for Pain (scale 1-3) for up to 14 days. proMETHazin 2019-11- No [id number] 25mg Take 1 Univers e 25 mg 2-16 12-31 tablet by ity of tablet 00:00: 05:59 mouth [place] 00 :00 every 8 Medical (eight) Branch hours as needed for Nausea and Vomiting (N/V) for up to 14 days. ibuprofen 2019-11- No [id number] 800mg Take 1 Univers 800 mg 2-16 12-31 tablet by ity of tablet 00:00: 05:59 mouth [place] 00 :00 every 6 Medical (six) Branch hours as needed for Pain (scale 1-3) for up to 14 days. proMETHazin 2019-11- No [id number] 25mg Take 1 Univers e 25 mg 2-16 12-31 tablet by ity of tablet 00:00: 05:59 mouth [place] 00 :00 every 8 Medical (eight) Branch hours as needed for Nausea and Vomiting (N/V) for up to 14 days. ibuprofen 2019-11- No [id number] 800mg Take 1 Univers 800 mg 2-16 12-31 tablet by ity of tablet 00:00: 05:59 mouth [place] 00 :00 every 6 Medical (six) Branch hours as needed for Pain (scale 1-3) for up to 14 days. proMETHazin 2019-11- No [id number] 25mg Take 1 Univers e 25 mg 2-16 12-31 tablet by ity of tablet 00:00: 05:59 mouth [place] 00 :00 every 8 Medical (eight) Branch hours as needed for Nausea and Vomiting (N/V) for up to 14 days. ibuprofen 2019-11- No [id number] 800mg Take 1 Univers 800 mg 2-16 12-31 tablet by ity of tablet 00:00: 05:59 mouth [place] 00 :00 every 6 Medical (six) Branch hours as needed for Pain (scale 1-3) for up to 14 days. proMETHazin 2019-11- No [id number] 25mg Take 1 Univers e 25 mg 2-16 12-31 tablet by ity of tablet 00:00: 05:59 mouth [place] 00 :00 every 8 Medical (eight) Branch hours as needed for Nausea and Vomiting (N/V) for up to 14 days. ibuprofen 2019-11- No [id number] 800mg Take 1 Univers 800 mg 2-16 12-31 tablet by ity of tablet 00:00: 05:59 mouth [place] 00 :00 every 6 Medical (six) Branch hours as needed for Pain (scale 1-3) for up to 14 days. proMETHazin 2019-11 No [id number] 25mg Take 1 Univers e 25 mg 2-16 12-31 tablet by ity of tablet 00:00: 05:59 mouth [place] 00 :00 every 8 Medical (eight) Branch hours as needed for Nausea and Vomiting (N/V) for up to 14 days. ibuprofen 2019-11- No [id number] 800mg Take 1 Univers 800 mg 2-16 12-31 tablet by ity of tablet 00:00: 05:59 mouth [place] 00 :00 every 6 Medical (six) Branch hours as needed for Pain (scale 1-3) for up to 14 days. proMETHazin 2019-11- No [id number] 25mg Take 1 Univers e 25 mg [...] Indication s: acute pain ALPRAZolam 2019-2019- No [id number] 2mg Take 1 Univers 2 mg tablet 2-16 12-24 tablet by it y of 00:00: 05:59 mouth 2 [place] 00 :00 (two) Medical times Branch daily for 7 days. HYDROcodone 2019-2019- No [id number]{tbl} Take 1 U nivers -acetaminop 2-16 12-24 tablet by it y of hen ([email or web address]) 00:00: 05:59 mouth [place] 10-325 mg 00 :00 every 6 Medical tablet (six) Branch hours as needed for Pain (scale 7-10) for up to 7 days. Indication s: acute pain ALPRAZolam 2019-2019- No [id number] 2mg Take 1 Univers 2 mg tablet 2-16 12-24 tablet by it y of 00:00: 05:59 mouth 2 [place] 00 :00 (two) Medical times Branch daily for 7 days. HYDROcodone 2019-11- No [id number] 1{tbl} Take 1 U nivers -acetaminop 2-16 12-24 tablet by it y of hen ([email or web address]) 00:00: 05:59 mouth [place] 10-325 mg 00 :00 every 6 Medical tablet (six) Branch hours as needed for Pain (scale 7-10) for up to 7 days. Indication s: acute pain ALPRAZolam 2019-2019- No [id number] 2mg Take 1 Univers 2 mg tablet 2-16 12-24 tablet by it y of 00:00: 05:59 mouth 2 [place] 00 :00 (two) Medical times Branch daily for 7 days. HYDROcodone 2019-11- No [id number] 1{tbl} Take 1 U nivers -acetaminop 2-16 12-24 tablet by it y of hen ([email or web address]) 00:00: 05:59 mouth [place] 10-325 mg 00 :00 every 6 Medical tablet (six) Branch hours as needed for Pain (scale 7-10) for up to 7 days. Indication s: acute pain ALPRAZolam 2019-2019- No [id number] 2mg Take 1 Univers 2 mg tablet 2-16 12-24 tablet by it y of 00:00: 05:59 mouth 2 [place] 00 :00 (two) Medical times Branch daily for 7 days. ciprofloxac 2019-11- No [id number] 500mg Take 1 Univers in HCl 500 2-16 12-16 tablet by ity of mg tablet 00:00: 00:00 mouth [place] 00 :00 every 12 Medical (twelve) Branch hours for 14 days. metroNIDAZO 2019-11- No [id number] 500mg Take 1 Univers LE 500 mg 2-16 12-16 tablet by ity of tablet 00:00: 00:00 mouth [place] 00 :00 every 8 Medical (eight) Branch hours for 14 days. ciprofloxac 2019-11- No [id number] 500mg Take 1 Univers in HCl 500 2-16 12-16 tablet by ity of mg tablet 00:00: 00:00 mouth [place] 00 :00 every 12 Medical (twelve) Branch hours. metroNIDAZO 2019-11- No [id number] 500mg Take 1 Univers LE 500 mg 2-16 12-16 tablet by ity of tablet 00:00: 00:00 mouth [place] 00 :00 every 8 Medical (eight) Branch hours. metoprolol 2019-11- No [id number] 25mg Take 1 U nivers tartrate 25 2-16 12-16 tablet by it y of mg tablet 00:00: 00:00 mouth 2 [place] 00 :00 (two) Medical times Branch daily. metroNIDAZO 2019-11 Yes 500mg 500 mg, Un thor LE (FLAGYL) 2-15 Oral, Q8H, it y of tablet 500 20:00: First dose [place] mg 00 on [facility] 10/29/20 Branch at 1400, Until Discontinu ed, Routine
Reason for Anti-Infec tive: Empiric Therapy for Suspected Infection< br>Empiric Therapy Site: Abdominal& lt;br>Dura tion of therapy: 7 days magnesium 2019-11 2020- No 2g 2 g, IV Univ ers sulfate in 2-15 -15 Piggyback, it y of water 2 17:45: 18:42 ONCE, 1 [place] gram/50 mL 00 :00 dose, [facility] ryann (4 %) 10/29/20 Branch infusion 2 at 1145, g Routine HYDROmorpho 2019-11 Yes 2mg 2 mg, Unive rs ne 2-15 Oral, ity of (DILAUDID) 15:19: Q4HPRN, [place] tablet 2 mg 37 Starting Medi ryann [facility] 10/29/20 at 0919, Until Discontinu ed, Routine, Pain (scale 7-10) KCL 20 2019-11 Yes 40meq 40 mEq, Univers mEq/15 mL 2-15 Oral, ity of solution 40 15:00: DAILY, [place] mEq 00 First dose Medical on [facility] 10/29/20 at 0900, Until Discontinu ed, Routine HYDROmorpho 2019-11- No .5mg 0.5 mg, Un thor ne 2-15 12-15 Slow IV ity of (DILAUDID) 07:37: 14:36 Push, [place] injection 39 :49 Q4HPRN, Medical 0.5 mg Starting Branch [facility] 10/29/20 at 0137, Until 10/29/20 at 0836, Routine, Pain (scale 7-10)
U se approved by (Faculty): GENERAL SURGERY
General surgeon approving: Phatak KCL 2019-11- No 40meq 40 mEq, Univers (KLOR-CON - 12-15 Oral, ity of M20) tablet 15:00: 13:15 DAILY, [place] 40 mEq 00 :49 First dose Medical on [facility] 10/28/20 at 0900, Until Discontinu ed, Routine KCL 2019-11- No 20meq 20 mEq, Univers (KLOR-CON 2-28 10-14 Oral, ity of M20) tablet 07:45: 06:54 ONCE, 1 [place] 20 mEq 00 :00 dose, [facility] [place] [facility] 10/28/20 Branch at 0145, Routine magnesium 2019-11 [...] ONCE, 1 Medica l NaCl 0.9% dose, [facility] Branc h (NS) 50 mL 10/24/20 IV [...] on Fri Medical mg/15 mL 10/18/20 at [facility] h solution 10 2000, mg Until Discontinu ed, Routine HYDROcodone 2019-11 Yes [id number] 1{tbl} Take 1 Un thor -acetaminop 2-05 tablet by ity of hen (NORCO) 00:00: mouth [place] 10-325 mg 00 every 6 Medical tablet (six) Branch hours as needed for Pain (scale 7-10). Indication s: acute pain ibuprofen 2019-11 Yes [id number] 600mg Take 1 U nivers 600 mg 2-05 tablet by ity of tablet 00:00: mouth [place] 00 every 6 Medical (six) Branch hours as needed for Pain (scale 1-3). proMETHazin 2019-11 Yes [id number] 25mg Take 1 Univers e 25 mg [...] Indication s: acute pain ibuprofen 2019-11 Yes [id number] 600mg Take 1 U nivers 600 mg 2-05 tablet by ity of tablet 00:00: mouth [place] 00 every 6 Medical (six) Branch hours as needed for Pain (scale 1-3). proMETHazin 2019-11 Yes [id number] 25mg Take 1 Univers e 25 mg 2-05 tablet by ity of tablet 00:00: mouth [place] 00 every 8 Medical (eight) Branch hours as needed for Nausea and Vomiting (N/V). gabapentin 2019-11- No [id number] 300mg Take 1 Univers 300 mg 2-05 12-20 capsule by ity of capsule 00:00: 05:59 mouth 3 [place] 00 :00 (three) Medical times Branch daily for 14 days. gabapentin 2019-11- No [id number] 300mg Take 1 Univers 300 mg 2-05 [...] s: acute pain ALPRAZolam 2019-11 2020- No [id number] 2mg Take 1 Univers 2 mg tablet 2-05 12-13 tablet by it y of 00:00: 05:59 mouth 2 [place] 00 :00 (two) Medical times Branch daily for 7 days. ALPRAZolam 2019- 2020- No [id number] 2mg Take 1 Univers 2 mg tablet 2-05 12-13 tablet by it y of 00:00: 05:59 mouth 2 [place] 00 :00 (two) Medical times Branch daily for 7 days. simethicone 2019-11 2020- No [id number] 80mg Take 1 Univers 80 mg 2-05 12-11 tablet by ity of chewable 00:00: 05:59 mouth [place] tablet 00 :00 after Medical meals and Branch at bedtime for 5 days. simethicone 2019- 2020- No [id number] 80mg Take 1 Univers 80 mg 2-05 12-11 tablet by ity of chewable 00:00: 05:59 mouth [place] tablet 00 :00 after Medical meals and Branch at bedtime for 5 days. ibuprofen 2019-11 2020- No [id number] 600mg Take 1 Univers 600 mg 2-05 12-10 tablet by ity of tablet 00:00: 00:00 mouth [place] 00 :00 every 6 Medical (six) Branch hours as needed for Pain (scale 1-3). simethicone 2019- 2020- No [id number] 80mg Take 1 Univers 80 mg 2-05 12-10 tablet by ity of chewable 00:00: 00:00 mouth [place] tablet 00 :00 after Medical meals and Branch at bedtime for 5 days. gabapentin 2019- 2020- No [id number] 300mg Take 1 Univers 300 mg 2-05 12-10 capsule by ity of capsule 00:00: 00:00 mouth 3 [place] 00 :00 (three) Medical times Branch daily for 14 days. ALPRAZolam 2019-11- No [id number] 2mg Take 1 Univers 2 mg tablet 12-20 12-10 tablet by it y of 00:00: 00:00 mouth 2 [place] 00 :00 (two) Medical times Branch daily for 7 days. proMETHazin 2019-11- No [id number] 25mg Take 1 Univers e 25 mg 2- 12-10 tablet by ity of tablet 00:00: 00:00 mouth [place] 00 :00 every 8 Medical (eight) Branch hours as needed for Nausea and Vomiting (N/V). proMETHazin 2019-11- No [id number] 25mg Take 1 Univers e 25 mg [...] injection 1 33 Starting Medi ryann mg [facility] 10/17/20 at 2056, Until Discontinu ed, Routine, Pain (scale 7-10)
U se approved by (Faculty): GENERAL SURGERY
General surgeon approving: Darren Clark ALPRAZolam 2019-11 Yes .25mg 0.25 mg, Un thor (XANAX) 2-04 Oral, BID, ity of tablet 0.25 02:00: First dose [place] mg 00 on [facility] Medical 10/17/20 at Branch 2000, Until Discontinu ed, Routine HYDROcodone 2019-11- No 5mg 5 mg, Univ ers -acetaminop 2 12-04 Oral, Q4H, i ty of hen (HYCET) 22:00: 22:24 First dose [place] 7.5-325 00 :22 (after Medical mg/15 mL last Branch solution 5 modificati mg on) on [facility] 10/17/20 at 1600, Until Discontinu ed, Routine bisacodyL 2019-11 Yes 10mg 10 mg, Univer s (DULCOLAX) 2-03 Rectal, ity of suppository 03:00: QHSPRN, [place] 10 mg 00 Starting Medical Wed [facility] 10/16/20 at 2100, Until Discontinu ed, Routine, [...] dose Medi ryann 1,000 mg on Wed [place] 10/16/20 at 1400, Until Discontinu ed, Routine ibuprofen 2019-11 Yes 600mg 600 mg, Univ ers (IBU) 12-17 Oral, Q6H, ity of tablet 600 18:00: First dose [place] mg 00 (after Medical last Branch modificati on) on [facility] 10/16/20 at 1200, Until Discontinu ed, Routine acetaminoph 2019-11 2020- No 500mg 500 mg, U nivers en 12-1704 Oral, Q6H, ity of (TYLENOL) 18:00: 22:24 First dose [place] 160 mg/5 mL 00 :23 (after Medica l liquid 500 last Branch mg modificati on) on [facility] 10/16/20 at 1200, Until Discontinu ed, Routine bisacodyL 2019-11 2020- No 10mg 10 mg, Unive rs (DULCOLAX) 12-17 Rectal, ity o f suppository 15:45: 14:55 ONCE, 1 [place] 10 mg 00 :00 dose, Wed [facility] 10/16/20 at Branch 0945, Routine melatonin 2019-11 Yes 3mg 3 mg, Univers (MELATIN) 12-17 Oral, QHS, ity of tablet 3 mg 03:00: First dose [place] 00 on Wed [facility] 10/15/20 at Branch 2100, Until Discontinu ed, Routine acetaminoph 2019-11 2020- No 650mg 650 mg, U nivers en 12-16 Oral, Q8H, ity of (TYLENOL) 20:00: 14:59 First dose [place] 160 mg/5 mL 00 :29 on [facility] Medica l liquid 650 10/15/20 at [facility] mg 1400, Until Discontinu ed, Routine HYDROcodone 2019-11- No 5mg 5 mg, Univ ers -acetaminop 12-16 Oral, Q6H, i ty of hen (HYCET) 18:00: 19:51 First dose [place] 7.5-325 00 :24 (after Medical mg/15 mL last Branch solution 5 modificati mg on) on [facility] 10/15/20 at 1200, Until Discontinu ed, Routine HYDROMORPHO 2019-11- No Unive rs NE [employer] 12-16 ity of 6MG/30ML 17:00: 14:57 [place] 00 :48 Medical Branch NaCl 0.9% 2019-11 Yes 10mL 10 mL, Univer s (NS) 12-16 Slow IV ity of injection 16:51: Push, [place]N, [place] 10 mL 43 Starting Medical [facility] 10/15/20 at 1051, Until Discontinu ed, Routine, line maintenanc e enoxaparin 2019-11 Yes 40mg 40 mg, Unive rs (LOVENOX) 12-16 Subcutaneo ity of injection 15:00: us, Q24H, [place] 40 mg 00 First dose Medical on [facility] 10/15/20 at 0900, Until Discontinu ed, Routine sennosides 2019-11- No 8.6mg 8.6 mg, Un thor (SENOKOT) 12-16 Oral, ity of tablet 8.6 15:00: 19:51 DAILY, [place] mg 00 :23 First dose Medical on [facility] 10/15/20 at 0900, Until Discontinu ed, Routine docusate 2019-11- No 100mg 100 mg, Univ ers (COLACE) 12-16 Oral, ity of capsule 100 15:00: 19:51 DAILY, [place] mg 00 :23 First dose Medical on [facility] 10/15/20 at 0900, Until Discontinu ed, Routine [...] mg in 05 Starting Medical NaCl 0.9% [facility] Branch (NS) 50 mL 10/14/20 IV at 2156, piggyback Until Discontinu ed, Routine, Nausea and Vomiting (N/V) HYDROMORPHO 2019-11 2020- No Unive rs NE [employer] 12-16 ity of 6MG/30ML 03:00: 16:54 [place] [...] First dose [place] tablet 25 00 on [facility] Medical mg 10/14/20 Branch at 1999, [...] ity of (fixed 17:30: 01:59 [place] dose) SHE[employer]ER 00 :31 Medical injection Branch lactated 2019-11- [...] Branch ease suspension opium 10 2019-11 Yes [id number] 1mL Take 1 mL Univers mg/mL 1-13 by mouth ity of (morphine) 00:00: every 6 [place] tincture 00 (six) Medical hours. Branch opium 10 2019-11 Yes [id number] 1mL Take 1 mL Univers mg/mL 1-13 by mouth ity of (morphine) 00:00: every 6 [place] tinct[place] 00 (six) Medical hours. Branch opium 10 2019-11 Yes [id number] 1mL Take 1 mL Univers mg/mL 1-13 by mouth ity of (morphine) 00:00: every 6 [place] tinct[place] 00 (six) Medical hours. Branch opium 10 2019-11 Yes [id number] 1mL Take 1 mL Univers mg/mL 1-13 by mouth ity of (morphine) 00:00: every 6 [place] tinct[place] 00 (six) Medical hours. Branch opium 10 2019-11 Yes [id number] 1mL Take 1 mL Univers mg/mL 1-13 by mouth ity of (morphine) 00:00: every 6 [place] tinct[place] 00 (six) Medical hours. Branch opium 10 2019-11 Yes [id number] 1mL Take 1 mL Univers mg/mL 1-13 by mouth ity of (morphine) 00:00: every 6 [place] tinct[place] 00 (six) Medical hours. Branch opium 10 2019-11 Yes [id number] 1mL Take 1 mL Univers mg/mL 1-13 by mouth ity of (morphine) 00:00: every 6 [place] tinct[place] 00 (six) Medical hours. Branch opium 10 2019-11 Yes [id number] 1mL Take 1 mL Univers mg/mL 1-13 by mouth ity of (morphine) 00:00: every 6 [place] tincture 00 (six) Medical hours. Branch opium 2019-11 Yes [id number] 1mL Take 1 mL Univers mg/mL 1-13 by mouth ity of (morphine) 00:00: every 6 [place] tincture 00 (six) Medical hours. Branch opium 10 2019-11 Yes [id number] 1mL Take 1 mL Univers mg/mL 1-13 by mouth ity of (morphine) 00:00: every 6 [place] tinct[place] 00 (six) Medical hours. Branch opium 2019-11 Yes [id number] 1mL Take 1 mL Univers mg/mL 1-13 by mouth ity of (morphine) 00:00: every 6 [place] tincture 00 (six) Medical hours. Branch opium 2019-11 Yes [id number] 1mL Take 1 mL Univers mg/mL 1-13 by mouth ity of (morphine) 00:00: every 6 [place] tinct[place] 00 (six) Medical hours. Branch opium 2019-11 Yes [id number] 1mL Take 1 mL Univers mg/mL 1-13 by mouth ity of (morphine) 00:00: every 6 [place] tinct[place] 00 (six) Medical hours. Branch opium 2019-11 Yes [id number] 1mL Take 1 mL Univers mg/mL 1-13 by mouth ity of (morphine) 00:00: every 6 [place] tinct[place] 00 (six) Medical hours. Branch opium 10 2019-11 Yes [id number] 1mL Take 1 mL Univers mg/mL 1-13 by mouth ity of (morphine) 00:00: every 6 [place] tinct[place] 00 (six) Medical hours. Branch opium 10 2019-11 Yes [id number] 1mL Take 1 mL Univers mg/mL 1-13 by mouth ity of (morphine) 00:00: every 6 [place] tinct[place] 00 (six) Medical hours. Branch opium 10 2019-11 Yes [id number] 1mL Take 1 mL Univers mg/mL 1-13 by mouth ity of (morphine) 00:00: every 6 [place] tinct[place] 00 (six) Medical hours. Branch opium 10 2019-11 Yes [id number] 1mL Take 1 mL Univers mg/mL 1-13 by mouth ity of (morphine) 00:00: every 6 [place] tinct[place] 00 (six) Medical hours. Branch opium 2019-11 Yes [id number] 1mL Take 1 mL Univers mg/mL 1-13 by mouth ity of (morphine) 00:00: every 6 [place] tinct[place] 00 (six) Medical hours. Branch opium 10 2019-11 Yes [id number] 1mL Take 1 mL Univers mg/mL 1-13 by mouth ity of (morphine) 00:00: every 6 [place] 00 (six) Medical hours. Branch opium 10 2019-11 Yes [id number] 1mL Take 1 mL Univers mg/mL 1-13 by mouth ity of (morphine) 00:00: every 6 [place] tinct[place] 00 (six) Medical hours. Branch opium 10 2019-11 Yes [id number] 1mL Take 1 mL Univers mg/mL 1-13 by mouth ity of (morphine) 00:00: every 6 [place] tinct[place] 00 (six) Medical hours. Branch opium 10 2019-11 Yes [id number] 1mL Take 1 mL Univers mg/mL 1-13 by mouth ity of (morphine) 00:00: every 6 [place] tinct[place] 00 (six) Medical hours. Branch opium 10 2019-11 Yes [id number] 1mL Take 1 mL Univers mg/mL 1-13 by mouth ity of (morphine) 00:00: every 6 [place]inct[place] 00 (six) Medical hours. Branch opium 10 2019-11 Yes [id number] 1mL Take 1 mL Univers mg/mL 1-13 by mouth ity of (morphine) 00:00: every 6 [place] tinct[place] 00 (six) Medical hours. Branch opium 10 2019-11 Yes [id number] 1mL Take 1 mL Univers mg/mL 1-13 by mouth ity of (morphine) 00:00: every 6 [place] tinct[place] 00 (six) Medical hours. Branch psyllium 2019-11 2020- No [id number] 1{packe Take 1 Univers 3.4 gram 1-13 12-14 t} Packet by ity o f packet 00:00: 05:59 mouth 3 [place] 00 :00 ([facility]) Medical times Branch daily before meals for 30 days. psyllium 2019-11- No [id number] 1{packe Take 1 Univers 3.4 gram 1-13 12-14 t} Packet by ity o f packet 00:00: 05:59 mouth 3 [place] 00 :00 ([facility]) Medical times Mobile daily before meals for 30 days. psyllium 2019-11- No [id number] 1{packe Take 1 Univers 3.4 gram 1-13 12-14 t} Packet by ity o f packet 00:00: 05:59 mouth 3 [place] 00 :00 ([facility]) Medical times [place] daily before meals for 30 days. psyllium 2019-11- No [id number] 1{packe Take 1 Univers 3.4 gram 1-13 12-14 t} Packet by ity o f packet 00:00: 05:59 mouth 3 [place] 00 :00 ([facility]) Medical times [place] daily before meals for 30 days. psyllium 2019-11- No [id number] 1{packe Take 1 Univers 3.4 gram 1-13 12-14 t} Packet by ity o f packet 00:00: 05:59 mouth 3 [place] 00 :00 ([facility]) Medical times Mobile daily before meals for 30 days. psyllium 2019-11- No [id number] 1{packe Take 1 Univers 3.4 gram 1-13 12-14 t} Packet by ity o f packet 00:00: 05:59 mouth 3 [place] 00 :00 ([facility]) Medical times Branch daily before meals for 30 days. psyllium 2019-11- No [id number] 1{packe Take 1 Univers 3.4 gram 1-13 12-14 t} Packet by ity o f packet 00:00: 05:59 mouth 3 [place] 00 :00 ([facility]) Medical times Branch daily before meals for 30 days. psyllium 2019-11- No [id number] 1{packe Take 1 Univers 3.4 gram 1-13 12-14 t} Packet by ity o f packet 00:00: 05:59 mouth 3 [place] 00 :00 ([facility]) Medical times Branch daily before meals for 30 days. psyllium 2019-11- No [id number] 1{packe Take 1 Univers 3.4 gram 1-13 12-14 t} Packet by ity o f packet 00:00: 05:59 mouth 3 [place] 00 :00 (three) Medical times Branch daily before meals for 30 days. psyllium 2019-11 2020- No [id number] 1{packe Take 1 Univers 3.4 gram 1-13 12-14 t} Packet by ity o f packet 00:00: 05:59 mouth 3 [place] 00 :00 (three) Medical times Branch daily before meals for 30 days. psyllium 2019-11- No [id number] 1{packe Take 1 Univers 3.4 gram 1-13 12-14 t} Packet by ity o f packet 00:00: 05:59 mouth 3 [place] 00 :00 (three) Medical times Branch daily before meals for 30 days. psyllium 2019-11- No [id number] 1{packe Take 1 Univers 3.4 gram 1-13 12-14 t} Packet by ity o f packet 00:00: 05:59 mouth 3 [place] 00 :00 (three) Medical times Branch daily before meals for 30 days. psyllium 2019-11- No [id number] 1{packe Take 1 Univers 3.4 gram 1-13 12-14 t} Packet by ity o f packet 00:00: 05:59 mouth 3 [place] 00 :00 (three) Medical times Branch daily before meals for 30 days. psyllium 2019-11- No [id number] 1{packe Take 1 Univers 3.4 gram 1-13 12-14 t} Packet by ity o f packet 00:00: 05:59 mouth 3 [place] 00 :00 (three) Medical times Branch daily before meals for 30 days. psyllium 2019-11 2020- No [id number] 1{packe Take 1 Univers 3.4 gram 1-13 12-10 t} Packet by ity o f packet 00:00: 00:00 mouth 3 [place] 00 :00 (three) Medical times Branch daily [...] Indication s: acute pain proMETHazin 2019-11- No [id number] 25mg Take 1 Univers e 25 mg 1-04 11-25 tablet by ity of tablet 00:00: 05:59 mouth [place] 00 :00 every 6 Medical (six) Branch hours as needed for Nausea and Vomiting (N/V) for up to 20 days. proMETHazin 2019-11- No [id number] 25mg Take 1 Univers e 25 mg 1-04 11-25 tablet by ity of tablet 00:00: 05:59 mouth [place] 00 :00 every 6 Medical (six) Branch hours as needed for Nausea and Vomiting (N/V) for up to 20 days. proMETHazin 2019-11- No [id number] 25mg Take 1 Univers e 25 mg 1-04 11-25 tablet by ity of tablet 00:00: 05:59 mouth [place] 00 :00 every 6 Medical (six) Branch hours as needed for Nausea and Vomiting (N/V) for up to 20 days. proMETHazin 2019- 2020- No [id number] 25mg Take 1 Univers e 25 mg 1-04 11-25 tablet by ity of tablet 00:00: 05:59 mouth [place] 00 :00 every 6 Medical (six) Branch hours as needed for Nausea and Vomiting (N/V) for up to 20 days. proMETHazin 2019-11- No [id number] 25mg Take 1 Univers e 25 mg 1-04 11-25 tablet by ity of tablet 00:00: 05:59 mouth [place] 00 :00 every 6 Medical (six) Branch hours as needed for Nausea and Vomiting (N/V) for up to 20 days. proMETHazin 2019-11- No [id number] 25mg Take 1 Univers e 25 mg 1-04 11-25 tablet by ity of tablet 00:00: 05:59 mouth [place] 00 :00 every 6 Medical (six) Branch hours as needed for Nausea and Vomiting (N/V) for up to 20 days. proMETHazin 2019-11- No [id number] 25mg Take 1 Univers e 25 mg 1-04 11-25 tablet by ity of tablet 00:00: 05:59 mouth [place] 00 :00 every 6 Medical (six) Branch hours as needed for Nausea and Vomiting (N/V) for up to 20 days. proMETHazin 2019-11- No [id number] 25mg Take 1 Univers e 25 mg 1-04 11-25 tablet by ity of tablet 00:00: 05:59 mouth [place] 00 :00 every 6 Medical (six) Branch hours as needed for Nausea and Vomiting (N/V) for up to 20 days. proMETHazin 2019-2019- No [id number] 25mg Take 1 Univers e 25 mg 1-04 11-25 tablet by ity of tablet 00:00: 05:59 mouth [place] 00 :00 every 6 Medical (six) Branch hours as needed for Nausea and Vomiting (N/V) for up to 20 days. proMETHazin 2019-2019- No [id number] 25mg Take 1 Univers e 25 mg 1-04 11-25 tablet by ity of tablet 00:00: 05:59 mouth [place] 00 :00 every 6 Medical (six) Branch hours as needed for Nausea and Vomiting (N/V) for up to 20 days. proMETHazin 2019- 2020- No [id number] 25mg Take 1 Univers e 25 mg 1-04 11-25 tablet by ity of tablet 00:00: 05:59 mouth [place] 00 :00 every 6 Medical (six) Branch hours as needed for Nausea and Vomiting (N/V) for up to 20 days. proMETHazin 2019- 2020- No [id number] 25mg Take 1 Univers e 25 mg 1-04 11-25 tablet by ity of tablet 00:00: 05:59 mouth [place] 00 :00 every 6 Medical (six) Branch hours as needed for Nausea and Vomiting (N/V) for up to 20 days. proMETHazin 2019- 2020- No [id number] 25mg Take 1 Univers e 25 mg -04 11-25 tablet by ity of tablet 00:00: 05:59 mouth [place] 00 :00 every 6 Medical (six) Branch hours as needed for Nausea and Vomiting (N/V) for up to 20 days. proMETHazin 2019- 2020- No [id number] 25mg Take 1 Univers e 25 mg [...] mg in 00 Starting Medical NaCl 0.9% [facility] Branch (NS) 50 mL 09/16/20 at IV 1230, piggyback Until Discontinu ed, Routine, Nausea and Vomiting (N/V) HYDROmorpho 2019-11- No .5mg 0.5 mg, Un thor ne 11-15 Slow IV ity of (DILAUDID) 20:03: 16:40 Push, [place] injection 04 :53 Q6HPRN, Medical 0.5 mg Starting Branch 09/15/20 at 1403, Until [facility] 09/16/20 at 1040, Routine, Pain (scale [...] HYDROcodone 2019-11 2020- No 1{tbl} 1 tablet, [place] [facility] -acetaminop 09-15 Oral, ity of hen (NORCO) [...] First dose Medi ryann 600 mg/50 on [facility] Branch mL IV 09/14/20 piggyback at [...] 0-30 Oral, ity of (TYLENOL) 20:56: Q6HPRN, [place] tablet 650 54 Starting Medic al mg [...] IV ity of (PF)) 19:15: 18:11 Push, [place] injection 00 :00 ONCE, 1 Medical 20 mg dose, Fri Branch 09/13/20 at 1415, LUISA methylpredn 2019-11 2020- No 125mg 125 mg, IV Univers isolone sod 0-30 10-30 Piggyback, i ty of succ 19:15: 18:06 ONCE, 1 [place] (SOLU-MEDRO 00 :00 dose, Wed Med ical [...] 2 it y of etamine 01:28: (two) [place] (ADDERALL) 56 times Medical 30 mg daily. [...] IV ity of (BENADRYL) 00:00: 23:44 [place], [place] injection 00 :00 ONCE, 1 Medical 12.5 mg dose, Fri Mobile 08/23/20 at 1900, STAT morpHINE 2019-11- No 4mg 4 mg, Slow Un thor injection 4 0-10 10-09 IV Push, ity of mg 00:00: 23:43 ONCE, 1 [place] 00 :00 dose, [facility] 08/23/20 at Branch 1900, STAT NaCl 0.9% 2019-11- No 1000mL at 999 Uni vers (NS) bolus 0-09 10-10 mL/hr, ity of infusion 23:45: 00:00 1,000 mL, [place] 1,000 mL 00 :00 IV Medical Infusion, Mobile ONCE, 1 dose, [facility] 08/23/20 at 1845, STAT ALPRAZolam 2019-11 Yes 2mg Take 2 mg Un thor (XANAX) 2 0-06 by mouth 2 ity of mg tablet 16:20: (two) [place] 37 times Medical daily. Branch dextroamphe 2019-11 [...] Sat Medica l NaCl 0.9% 08/17/20 at [facility] (NS) 50 mL 2315, 50 piggyback mL morpHINE 2019-11- No 4mg 4 mg, Slow Un thor injection 4 0-04 10-04 IV Push, ity of mg 04:15: 03:25 ONCE, 1 [place] 00 :00 dose, Sat Medical 08/17/20 at Mobile 2315, STAT NaCl 0.9% 2019-11- No 500mL at [address] [place] [address] ers (NS) bolus 0-04 10-04 mL/hr, 500 [...] Sat Medica l NaCl 0.9% 08/17/20 at [facility] ch (NS) 50 mL 2114, 50 piggyback mL morpHINE 2019-11- No 4mg 4 mg, Slow Un thor injection 4 08-18 IV Push, ity of mg 02:15: 01:24 ONCE, 1 [place] 00 :00 dose, [facility] Medical 08/17/20 at Branch 2115, STAT diphenhydrA 2019-11- No 25mg 25 mg, Uni vers MINE 008-18 Slow IV ity of (BENADRYL) 02:15: 01:24 Push, [place] injection 00 :00 ONCE, 1 Medical 25 mg dose, Sat Branch 08/17/20 at 2115, STAT proMETHazin 2019-11 Yes [id number] 25mg Take 1 Univers e 25 mg 0-03 tablet by ity of tablet 00:00: mouth [place] 00 every 6 Medical (six) Branch hours as needed for Nausea and Vomiting (N/V). proMETHazin 2019-11 Yes [id number] 25mg Take 1 Univers e 25 mg 0-03 tablet by ity of tablet 00:00: mouth [place] 00 every 6 Medical (six) Branch hours as needed for Nausea and Vomiting (N/V). proMETHazin 2020- Yes [id number] 25mg Take 1 Univers e 25 mg 0-03 tablet by ity of tablet 00:00: mouth [place] 00 every 6 Medical (six) Branch hours as needed for Nausea and Vomiting (N/V). proMETHazin 2020-1 Yes [id number] 25mg Take 1 Univers e 25 mg 0-03 tablet by ity of tablet 00:00: mouth [place] 00 every 6 Medical (six) Branch hours as needed for Nausea and Vomiting (N/V). proMETHazin 2020- Yes [id number] 25mg Take 1 Univers e 25 mg 0-03 tablet by ity of tablet 00:00: mouth [place] 00 every 6 Medical (six) Branch hours as needed for Nausea and Vomiting (N/V). proMETHazin 2019- Yes [id number] 25mg Take 1 Univers e 25 mg 0-03 tablet by ity of tablet 00:00: mouth [place] 00 every 6 Medical (six) Branch hours as needed for Nausea and Vomiting (N/V). proMETHazin 2019- Yes [id number] 25mg Take 1 Univers e 25 mg 0-03 tablet by ity of tablet 00:00: mouth [place] 00 every 6 Medical (six) Branch hours as needed for Nausea and Vomiting (N/V). proMETHazin 2019- Yes [id number] 25mg Take 1 Univers e 25 mg 0-03 tablet by ity of tablet 00:00: mouth [place] 00 every 6 Medical (six) Branch hours as needed for Nausea and Vomiting (N/V). proMETHazin 2019- Yes [id number] 25mg Take 1 Univers e 25 mg 0-03 tablet by ity of tablet 00:00: mouth [place] 00 every 6 Medical (six) Branch hours as needed for Nausea and Vomiting (N/V). proMETHazin 2020-1 Yes [id number] 25mg Take 1 Univers e 25 mg 0-03 tablet by ity of tablet 00:00: mouth [place] 00 every 6 Medical (six) Branch hours as needed for Nausea and Vomiting (N/V). proMETHazin 2020-1 Yes [id number] 25mg Take 1 Univers e 25 mg 0-03 tablet by ity of tablet 00:00: mouth [place] 00 every 6 Medical (six) Branch hours as needed for Nausea and Vomiting (N/V). proMETHazin 2019-1 Yes [id number] 25mg Take 1 Univers e 25 mg 0-03 tablet by ity of tablet 00:00: mouth [place] 00 every 6 Medical (six) Branch hours as needed for Nausea and Vomiting (N/V). proMETHazin 2019- Yes [id number] 25mg Take 1 Univers e 25 mg 0-03 tablet by ity of tablet 00:00: mouth [place] 00 every 6 Medical (six) Branch hours as needed for Nausea and Vomiting (N/V). proMETHazin 2019- Yes [id number] 25mg Take 1 Univers e 25 mg 0-03 tablet by ity of tablet 00:00: mouth [place] 00 every 6 Medical (six) Branch hours as needed for Nausea and Vomiting (N/V). proMETHazin 2019-1 Yes [id number] 25mg Take 1 Univers e 25 mg 0-03 tablet by ity of tablet 00:00: mouth [place] 00 every 6 Medical (six) Branch hours as needed for Nausea and Vomiting (N/V). proMETHazin 2019- Yes [id number] 25mg Take 1 Univers e 25 mg 0-03 tablet by ity of tablet 00:00: mouth [place] 00 every 6 Medical (six) Branch hours as needed for Nausea and Vomiting (N/V). proMETHazin 2019-1 Yes [id number] 25mg Take 1 Univers e 25 mg 0-03 tablet by ity of tablet 00:00: mouth [place] 00 every 6 Medical (six) Branch hours as needed for Nausea and Vomiting (N/V). proMETHazin 2019- Yes [id number] 25mg Take 1 Univers e 25 mg 0-03 tablet by ity of tablet 00:00: mouth [place] 00 every 6 Medical (six) Branch hours as needed for Nausea and Vomiting (N/V). proMETHazin 2019-1 Yes [id number] 25mg Take 1 Univers e 25 mg 0-03 tablet by ity of tablet 00:00: mouth [place] 00 every 6 Medical (six) Branch hours as needed for Nausea and Vomiting (N/V). proMETHazin 2019-11 2020- No [id number] 25mg Take 1 Univers e 25 mg [...] s tablet 2 mg 00 [facility]/01[facility]20 at 0700, Until Discontinu ed, Routine, Pain (scale 7-10) ibuprofen 2020-0 Yes [id number] 600mg Take 1 Univers 600 mg 9-17 tablet by ity of tablet 00:00: mouth [place] 00 every 6 Medical (six) Branch hours. loperamide 2020-0 Yes [id number] 2mg Take 1 Univers 2 mg 9-17 capsule by ity of capsule 00:00: mouth [place] 00 daily. Medical Branch methocarbam 2020-0 Yes [id number] 500mg Take 1 Univers oL 500 mg 9-17 tablet by ity o f tablet 00:00: mouth 4 [place] 00 (four) Medical times Branch daily. ibuprofen 2020-0 Yes [id number] 600mg Take 1 Univers 600 mg 9-17 tablet by ity of tablet 00:00: mouth [place] 00 every 6 Medical (six) Branch hours. loperamide 2020-0 Yes [id number] 2mg Take 1 Univers 2 mg 9-17 capsule by ity of capsule 00:00: mouth [place] 00 daily. Medical Branch methocarbam 2020-0 Yes [id number] 500mg Take 1 Univers oL 500 mg 9-17 tablet by ity o f tablet 00:00: mouth 4 [place] 00 (four) Medical times Branch daily. ibuprofen 2020-0 Yes [id number] 600mg Take 1 Univers 600 mg 9-17 tablet by ity of tablet 00:00: mouth [place] 00 every 6 Medical (six) Branch hours. loperamide 2020-0 Yes [id number] 2mg Take 1 Univers 2 mg 9-17 capsule by ity of capsule 00:00: mouth [place] 00 daily. Medical Branch methocarbam 2020-0 Yes [id number] 500mg Take 1 Univers oL 500 mg 9-17 tablet by ity o f tablet 00:00: mouth 4 [place] 00 (four) Medical times Branch daily. ibuprofen 2020-0 Yes [id number] 600mg Take 1 Univers 600 mg 9-17 tablet by ity of tablet 00:00: mouth [place] 00 every 6 Medical (six) Branch hours. loperamide 2020-0 Yes [id number] 2mg Take 1 Univers 2 mg 9-17 capsule by ity of capsule 00:00: mouth 00 daily. Medical Branch methocarbam 2020-0 Yes [id number] 500mg Take 1 Univers oL 500 mg 9-17 tablet by ity o f tablet 00:00: mouth (four) Medical times Branch daily. ibuprofen 2020-0 Yes [id number] 600mg Take 1 Univers 600 mg 9-17 tablet by ity of tablet 00:00: mouth [place] 00 every 6 Medical (six) Branch hours. loperamide 2020-0 Yes [id number] 2mg Take 1 Univers 2 mg 9-17 capsule by ity of capsule 00:00: mouth 00 daily. Medical Branch methocarbam 2020-0 Yes [id number] 500mg Take 1 Univers oL 500 mg 9-17 tablet by ity o f tablet 00:00: mouth (four) Medical times Branch daily. ibuprofen 2020-0 Yes [id number] 600mg Take 1 Univers 600 mg 9-17 tablet by ity of tablet 00:00: mouth 00 every 6 Medical (six) Branch hours. loperamide 2020-0 Yes [id number] 2mg Take 1 Univers 2 mg 9-17 capsule by ity of capsule 00:00: mouth 00 daily. Medical Branch methocarbam 2020-0 Yes [id number] 500mg Take 1 Univers oL 500 mg 9-17 tablet by ity o f tablet 00:00: mouth (four) Medical times Branch daily. ibuprofen 2020-0 Yes [id number] 600mg Take 1 Univers 600 mg 9-17 tablet by ity of tablet 00:00: mouth 00 every 6 Medical (six) Branch hours. loperamide 2020-0 Yes [id number] 2mg Take 1 Univers 2 mg 9-17 capsule by ity of capsule 00:00: mouth 00 daily. Medical Branch methocarbam 2020-0 Yes [id number] 500mg Take 1 Univers oL 500 mg 9-17 tablet by ity o f tablet 00:00: mouth (four) Medical times Branch daily. ibuprofen 2020-0 Yes [id number] 600mg Take 1 Univers 600 mg 9-17 tablet by ity of tablet 00:00: mouth [place] 00 every 6 Medical (six) Branch hours. loperamide 2020-0 Yes [id number] 2mg Take 1 Univers 2 mg 9-17 capsule by ity of capsule 00:00: mouth [place] 00 daily. Medical Branch methocarbam 2020-0 Yes [id number] 500mg Take 1 [facility] oL 500 mg 9-17 tablet by ity o f tablet 00:00: mouth (four) Medical times Branch daily. ibuprofen 2020-0 Yes [id number] 600mg Take 1 [facility] 600 mg 9-17 tablet by [facility]y of tablet 00:00: mouth 00 every 6 Medical (six) Branch hours. loperamide 2020-0 Yes [id number] 2mg Take 1 [facility] 2 mg 9-17 capsule by ity of capsule 00:00: mouth 00 daily. Medical Branch methocarbam 2020-0 Yes [id number] 500mg Take 1 [facility] oL 500 mg 9-17 tablet by ity o f tablet 00:00: mouth (four) Medical times Branch daily. ibuprofen 2020-0 Yes [id number] 600mg Take 1 [facility] 600 mg 9-17 tablet by ity of tablet 00:00: mouth 00 every 6 Medical (six) Branch hours. loperamide 2020-0 Yes [id number] 2mg Take 1 [facility] 2 mg 9-17 capsule by ity of capsule 00:00: mouth 00 daily. Medical Branch methocarbam 2020-0 Yes [id number] 500mg Take 1 [facility] oL 500 mg 9-17 tablet by ity o f tablet 00:00: mouth (four) Medical times Branch daily. ibuprofen 2020-0 Yes [id number] 600mg Take 1 [facility] 600 mg 9-17 tablet by ity of tablet 00:00: mouth 00 every 6 Medical (six) Branch hours. loperamide 2020-0 Yes [id number] 2mg Take 1 [facility] 2 mg 9-17 capsule by ity of capsule 00:00: mouth 00 daily. Medical Branch methocarbam 2020-0 Yes [id number] 500mg Take 1 [facility] oL 500 mg 9-17 tablet by ity o f tablet 00:00: mouth (four) Medical times Branch daily. ibuprofen 2020-0 Yes [id number] 600mg Take 1 [facility] 600 mg 9-17 tablet by ity of tablet 00:00: mouth 00 every 6 Medical (six) Branch hours. loperamide 2020-0 Yes [id number] 2mg Take 1 [facility] 2 mg 9-17 capsule by ity of capsule 00:00: mouth 00 daily. Medical Branch methocarbam 2020-0 Yes [id number] 500mg Take 1 [facility] oL 500 mg 9-17 tablet by ity o f tablet 00:00: mouth (four) Medical times Branch daily. ibuprofen 2020-0 Yes [id number] 600mg Take 1 [facility] 600 mg 9-17 tablet by ity of tablet 00:00: mouth [place] 00 every 6 Medical (six) Branch hours. loperamide 2020-0 Yes [id number] 2mg Take 1 [facility] 2 mg 9-17 capsule by ity of capsule 00:00: mouth [place] 00 daily. Medical Branch methocarbam 2020-0 Yes [id number] 500mg Take 1 [facility] oL 500 mg 9-17 tablet by ity o f tablet 00:00: mouth (four) Medical times Branch daily. ibuprofen 2020-0 Yes [id number] 600mg Take 1 [facility] 600 mg 9-17 tablet by ity of tablet 00:00: mouth [place] 00 every 6 Medical (six) Branch hours. loperamide 2020-0 Yes [id number] 2mg Take 1 [facility] 2 mg 9-17 capsule by ity of capsule 00:00: mouth 00 daily. Medical Branch methocarbam 2020-0 Yes [id number] 500mg Take 1 [facility] oL 500 mg 9-17 tablet by ity o f tablet 00:00: mouth (four) Medical times Branch daily. ibuprofen 2020-0 Yes [id number] 600mg Take 1 [facility] 600 mg 9-17 tablet by ity of tablet 00:00: mouth [place] 00 every 6 Medical (six) Branch hours. loperamide 2020-0 Yes [id number] 2mg Take 1 [facility] 2 mg 9-17 capsule by ity of capsule 00:00: mouth [place] 00 daily. Medical Branch methocarbam 2020-0 Yes [id number] 500mg Take 1 [facility] oL 500 mg 9-17 tablet by ity o f tablet 00:00: mouth (four) Medical times Branch daily. ibuprofen 2020-0 Yes [id number] 600mg Take 1 [facility] 600 mg 9-17 tablet by ity of tablet 00:00: mouth [place] 00 every 6 Medical (six) Branch hours. loperamide 2020-0 Yes [id number] 2mg Take 1 [facility] 2 mg 9-17 capsule by ity of capsule 00:00: mouth 00 daily. Medical Branch methocarbam 2020-0 Yes [id number] 500mg Take 1 [facility] oL 500 mg 9-17 tablet by ity o f tablet 00:00: mouth (four) Medical times Branch daily. ibuprofen 2020-0 Yes [id number] 600mg Take 1 [facility] 600 mg 9-17 tablet by ity of tablet 00:00: mouth [place] 00 every 6 Medical (six) Branch hours. loperamide 2020-0 Yes [id number] 2mg Take 1 [facility] 2 mg 9-17 capsule by ity of capsule 00:00: mouth [place] 00 daily. Medical Branch methocarbam 2020-0 Yes [id number] 500mg Take 1 [facility] oL 500 mg 9-17 tablet by ity o f tablet 00:00: mouth 4 (four) Medical times Branch daily. ibuprofen 2020-0 Yes [id number] 600mg Take 1 [facility] 600 mg 9-17 tablet by ity of tablet 00:00: mouth [place] 00 every 6 Medical (six) Branch hours. loperamide 2020-0 Yes [id number] 2mg Take 1 [facility] 2 mg 9-17 capsule by ity of capsule 00:00: mouth [place] 00 daily. Medical Branch methocarbam 2020-0 Yes [id number] 500mg Take 1 [facility] oL 500 mg 9-17 tablet by ity o f tablet 00:00: mouth (four) Medical times Branch daily. ibuprofen 2020-0 Yes [id number] 600mg Take 1 [facility] 600 mg 9-17 tablet by ity of tablet 00:00: mouth [place] 00 every 6 Medical (six) Branch hours. loperamide 2020-0 Yes [id number] 2mg Take 1 [facility] 2 mg 9-17 capsule by ity of capsule 00:00: mouth [place] 00 daily. Medical Branch methocarbam 2020-0 Yes [id number] 500mg Take 1 [facility] oL 500 mg 9-17 tablet by ity o f tablet 00:00: mouth (four) Medical times Branch daily. ibuprofen 2020-0 Yes [id number] 600mg Take 1 [facility] 600 mg 9-17 tablet by ity of tablet 00:00: mouth [place] 00 every 6 Medical (six) Branch hours. loperamide 2020-0 Yes [id number] 2mg Take 1 [facility] 2 mg 9-17 capsule by ity of capsule 00:00: mouth [place] 00 daily. Medical Branch methocarbam 2020-0 Yes [id number] 500mg Take 1 [facility] oL 500 mg 9-17 tablet by ity o f tablet 00:00: mouth 4 [place] 00 (four) Medical times Branch daily. ibuprofen 2020-0 Yes [id number] 600mg Take 1 [facility] 600 mg 9-17 tablet by ity of tablet 00:00: mouth [place] 00 every 6 Medical (six) Branch hours. loperamide 2020-0 Yes [id number] 2mg Take 1 [facility] 2 mg 9-17 capsule by ity of capsule 00:00: mouth [place] 00 daily. Medical Branch methocarbam 2020-0 Yes [id number] 500mg Take 1 [facility] oL 500 mg 9-17 tablet by ity o f tablet 00:00: mouth [address] [place] [address] (four) Medical times Branch daily. ibuprofen 2020-0 Yes [id number] 600mg Take 1 [facility] 600 mg 9-17 tablet by ity of tablet 00:00: mouth [place] 00 every 6 Medical (six) Branch hours. loperamide 2020-0 Yes [id number] 2mg Take 1 [facility] 2 mg 9-17 capsule by ity of capsule 00:00: mouth [place] 00 daily. Medical Branch methocarbam 2020-0 Yes [id number] 500mg Take 1 [facility] oL 500 mg 9-17 tablet by ity o f tablet 00:00: mouth [address] [place] [address] (four) Medical times Branch daily. ibuprofen 2020-0 Yes [id number] 600mg Take 1 [facility] 600 mg 9-17 tablet by ity of tablet 00:00: mouth [place] 00 every 6 Medical (six) Branch hours. loperamide 2020-0 Yes [id number] 2mg Take 1 [facility] 2 mg 9-17 capsule by ity of capsule 00:00: mouth [place] 00 daily. Medical Branch methocarbam 2020-0 Yes [id number] 500mg Take 1 [facility] oL 500 mg 9-17 tablet by ity o f tablet 00:00: [address] (four) Medical times Branch daily. ibuprofen 2020-0 Yes [id number] 600mg Take 1 [facility] 600 mg 9-17 tablet by ity of tablet 00:00: mouth [place] 00 every 6 Medical (six) Branch hours. loperamide 2020-0 Yes [id number] 2mg Take 1 [facility] 2 mg 9-17 capsule by ity of capsule 00:00: mouth [place] 00 daily. Medical Branch methocarbam 2020-0 Yes [id number] 500mg Take 1 [facility] oL 500 mg 9-17 tablet by ity o f tablet 00:00: mouth [address] [place] [address] (four) Medical times Branch daily. ibuprofen 2020-0 Yes [id number] 600mg Take 1 [facility] 600 mg 9-17 tablet by ity of tablet 00:00: mouth [place] 00 every 6 Medical (six) Branch hours. loperamide 2020-0 Yes [id number] 2mg Take 1 [facility] 2 mg 9-17 capsule by ity of capsule 00:00: mouth [place] 00 daily. Medical Branch methocarbam 2020-0 Yes [id number] 500mg Take 1 [facility] oL 500 mg 9-17 tablet by ity o f tablet 00:00: mouth (four) Medical times Branch daily. ibuprofen 2020-0 Yes [id number] 600mg Take 1 [facility] 600 mg 9-17 tablet by ity of tablet 00:00: mouth [place] 00 every 6 Medical (six) Branch hours. methocarbam 2020-0 Yes [id number] 500mg Take 1 [facility] oL 500 mg 9-17 tablet by ity o f tablet 00:00: mouth (four) Medical times Branch daily. ibuprofen 2020-0 Yes [id number] 600mg Take 1 [facility] 600 mg 9-17 tablet by ity of tablet 00:00: mouth [place] 00 every 6 Medical (six) Branch hours. methocarbam 2020-0 Yes [id number] 500mg Take 1 [facility] oL 500 mg 9-17 tablet by ity o f tablet 00:00: mouth (four) Medical times Branch daily. ibuprofen 2020-0 Yes [id number] 600mg Take 1 [facility] 600 mg 9-17 tablet by ity of tablet 00:00: mouth [place] 00 every 6 Medical (six) Branch hours. methocarbam 2020-0 Yes [id number] 500mg Take 1 [facility] oL 500 mg 9-17 tablet by ity o f tablet 00:00: mouth (four) Medical times Branch daily. ibuprofen 2020-0 Yes [id number] 600mg Take 1 [facility] 600 mg 9-17 tablet by ity of tablet 00:00: mouth [place] 00 every 6 Medical (six) Branch hours. methocarbam 2020-0 Yes [id number] 500mg Take 1 [facility] oL 500 mg 9-17 tablet by ity o f tablet 00:00: mouth (four) Medical times Branch daily. acetaminoph 2020-0 2021- No [id number] 650mg Take 2 [facility] en 325 mg 9-17 09-18 tablets by ity of tablet 00:00: 04:59 mouth [place] 00 :00 every 6 Medical (six) Branch hours. acetaminoph 2020-0 2021- No [id number] 650mg Take 2 [facility] en 325 mg 9-17 09-18 tablets by ity of tablet 00:00: 04:59 mouth [place] 00 :00 every 6 Medical (six) Branch hours. acetaminoph 2020- No [id number] 650mg Take 2 [facility] en 325 mg 9-17 09-18 tablets by ity of tablet 00:00: 04:59 mouth [place] 00 :00 every 6 Medical (six) Branch hours. acetaminoph 2020- No [id number] 650mg Take 2 [facility] en 325 mg 9-17 09-18 tablets by ity of tablet 00:00: 04:59 mouth [place] 00 :00 every 6 Medical (six) Branch hours. acetaminoph 2020- No [id number] 650mg Take 2 [facility] en 325 mg 9-17 09-18 tablets by ity of tablet 00:00: 04:59 mouth [place] 00 :00 every 6 Medical (six) Branch hours. acetaminoph 2020- No [id number] 650mg Take 2 [facility] en 325 mg 9-17 09-18 tablets by ity of tablet 00:00: 04:59 mouth [place] 00 :00 every 6 Medical (six) Branch hours. acetaminoph 2020- No [id number] 650mg Take 2 [facility] en 325 mg 9-17 09-18 tablets by ity of tablet 00:00: 04:59 mouth [place] 00 :00 every 6 Medical (six) Branch hours. acetaminoph 2020- No [id number] 650mg Take 2 [facility] en 325 mg 9-17 09-18 tablets by ity of tablet 00:00: 04:59 mouth [place] 00 :00 every 6 Medical (six) Branch hours. acetaminoph 20202020- No [id number] 650mg Take 2 [facility] en 325 mg 9-17 09-18 tablets by ity of tablet 00:00: 04:59 mouth [place] 00 :00 every 6 Medical (six) Branch hours. acetaminoph 20202020- No [id number] 650mg Take 2 [facility] en 325 mg 9-17 09-18 tablets by ity of tablet 00:00: 04:59 mouth [place] 00 :00 every 6 Medical (six) Branch hours. acetaminoph 2020- No [id number] 650mg Take 2 [facility] en 325 mg 9-17 09-18 tablets by ity of tablet 00:00: 04:59 mouth [place] 00 :00 every 6 Medical (six) Branch hours. acetaminoph 2020- No [id number] 650mg Take 2 [facility] en 325 mg 9-17 09-18 tablets by ity of tablet 00:00: 04:59 mouth [place] 00 :00 every 6 Medical (six) Branch hours. acetaminoph 2020- No [id number] 650mg Take 2 [facility] en 325 mg 9-17 09-18 tablets by ity of tablet 00:00: 04:59 mouth [place] 00 :00 every 6 Medical (six) Branch hours. acetaminoph 2020- No [id number] 650mg Take 2 [facility] en 325 mg 9-17 09-18 tablets by ity of tablet 00:00: 04:59 mouth [place] 00 :00 every 6 Medical (six) Branch hours. acetaminoph 2020- No [id number] 650mg Take 2 [facility] en 325 mg 9-17 09-18 tablets by ity of tablet 00:00: 04:59 mouth [place] 00 :00 every 6 Medical (six) Branch hours. acetaminoph 2020- No [id number] 650mg Take 2 [facility] en 325 mg 9-17 09-18 tablets by ity of tablet 00:00: 04:59 mouth [place] 00 :00 every 6 Medical (six) Branch hours. acetaminoph 2020- No [id number] 650mg Take 2 [facility] en 325 mg 9-17 09-18 tablets by ity of tablet 00:00: 04:59 mouth [place] 00 :00 every 6 Medical (six) Branch hours. acetaminoph 2020- No [id number] 650mg Take 2 [facility] en 325 mg 9-17 09-18 tablets by ity of tablet 00:00: 04:59 mouth [place] 00 :00 every 6 Medical (six) Branch hours. acetaminoph 2020- No [id number] 650mg Take 2 [facility] en 325 mg 9-17 09-18 tablets by ity of tablet 00:00: 04:59 mouth [place] 00 :00 every 6 Medical (six) Branch hours. acetaminoph 2020- No [id number] 650mg Take 2 [facility] en 325 mg 9-17 09-18 tablets by ity of tablet 00:00: 04:59 mouth [place] 00 :00 every 6 Medical (six) Branch hours. acetaminoph 2020- No [id number] 650mg Take 2 [facility] en 325 mg 9-17 09-18 tablets by ity of tablet 00:00: 04:59 mouth [place] 00 :00 every 6 Medical (six) Branch hours. acetaminoph 2020- No [id number] 650mg Take 2 [facility] en 325 mg 9-17 09-18 tablets by ity of tablet 00:00: 04:59 mouth [place] 00 :00 every 6 Medical (six) Branch hours. acetaminoph 2020- No [id number] 650mg Take 2 [facility] en 325 mg 9-17 09-18 tablets by ity of tablet 00:00: 04:59 mouth [place] 00 :00 every 6 Medical (six) Branch hours. acetaminoph 2020- No [id number] 650mg Take 2 [facility] en 325 mg 9-17 09-18 tablets by ity of tablet 00:00: 04:59 mouth [place] 00 :00 every 6 Medical (six) Branch hours. acetaminoph 2020- No [id number] 650mg Take 2 [facility] en 325 mg 9-17 09-18 tablets by ity of tablet 00:00: 04:59 mouth [place] 00 :00 every 6 Medical (six) Branch hours. acetaminoph 2020- No [id number] 650mg Take 2 [facility] en 325 mg 9-17 09-18 tablets by ity of tablet 00:00: 04:59 mouth [place] 00 :00 every 6 Medical (six) Branch hours. acetaminoph 2020- No [id number] 650mg Take 2 [facility] en 325 mg 9-17 09-18 tablets by ity of tablet 00:00: 04:59 mouth [place] 00 :00 every 6 Medical (six) Branch hours. acetaminoph 20202020- No [id number] 650mg Take 2 [facility] en 325 mg 9-17 09-18 tablets by ity of tablet 00:00: 04:59 mouth [place] 00 :00 every 6 Medical (six) Branch hours. acetaminoph 2020- No [id number] 650mg Take 2 [facility] en 325 mg 9-17 09-18 tablets by ity of tablet 00:00: 04:59 mouth [place] 00 :00 every 6 Medical (six) Branch hours. acetaminoph 2020- No [id number] 650mg Take 2 [facility] en 325 mg 9-17 09-18 tablets by ity of tablet 00:00: 04:59 mouth [place] 00 :00 every 6 Medical (six) Branch hours. acetaminoph 2020- No [id number] 650mg Take 2 [facility] en 325 mg 9-17 09-18 tablets by ity of tablet 00:00: 04:59 mouth [place] 00 :00 every 6 Medical (six) Branch hours. acetaminoph 2020- No [id number] 650mg Take 2 [facility] en 325 mg 9-17 09-18 tablets by ity of tablet 00:00: 04:59 mouth [place] 00 :00 every 6 Medical (six) Branch hours. acetaminoph 2020- No [id number] 650mg Take 2 [facility] en 325 mg 9-17 09-18 tablets by ity of tablet 00:00: 04:59 mouth [place] 00 :00 every 6 Medical (six) Branch hours. acetaminoph 2020- No [id number] 650mg Take 2 [facility] en 325 mg 9-17 09-18 tablets by ity of tablet 00:00: 04:59 mouth [place] 00 :00 every 6 Medical (six) Branch hours. acetaminoph 2020- No [id number] 650mg Take 2 [facility] en 325 mg 9-17 09-18 tablets by ity of tablet 00:00: 04:59 mouth [place] 00 :00 every 6 Medical (six) Branch hours. acetaminoph 2020- No [id number] 650mg Take 2 [facility] en 325 mg 9-17 09-18 tablets by ity of tablet 00:00: 04:59 mouth [place] 00 :00 every 6 Medical (six) Branch hours. acetaminoph 2020-2020- No [id number] 650mg Take 2 [facility] en 325 mg 9-17 09-18 tablets by ity of tablet 00:00: 04:59 mouth [place] 00 :00 every 6 Medical (six) Branch hours. acetaminoph 2020- No [id number] 650mg Take 2 [facility] en 325 mg 9-17 09-18 tablets by ity of tablet 00:00: 04:59 mouth [place] 00 :00 every 6 Medical (six) Branch hours. acetaminoph 2020- No [id number] 650mg Take 2 [facility] en 325 mg 9-17 09-18 tablets by ity of tablet 00:00: 04:59 mouth [place] 00 :00 every 6 Medical (six) Branch hours. acetaminoph 2020- No [id number] 650mg Take 2 [facility] en 325 mg 9-17 09-18 tablets by ity of tablet 00:00: 04:59 mouth [place] 00 :00 every 6 Medical (six) Branch hours. acetaminoph 2020- No [id number] 650mg Take 2 [facility] en 325 mg 9-17 09-18 tablets by ity of tablet 00:00: 04:59 mouth [place] 00 :00 every 6 Medical (six) Branch hours. acetaminoph 2020- No [id number] 650mg Take 2 [facility] en 325 mg 9-17 09-18 tablets by ity of tablet 00:00: 04:59 mouth [place] 00 :00 every 6 Medical (six) Branch hours. acetaminoph 2020- No [id number] 650mg Take 2 [facility] en 325 mg 9-17 09-18 tablets by ity of tablet 00:00: 04:59 mouth [place] 00 :00 every 6 Medical (six) Branch hours. acetaminoph 2019- No [id number] 650mg Take 2 [facility] en 325 mg 9-17 12-16 tablets by ity of tablet 00:00: 00:00 mouth [place] 00 :00 every 6 Medical (six) Branch hours. loperamide 2019-2019- No [id number] 2mg Take 1 [facility] 2 mg 9-17 [...] First [place] mg 00 dose on [facility] 07/29/20 at 1200, Until Discontinu ed, Routine NaCl 0.9% 2020-0 Yes 10mL 10 mL, Univer s (NS) -14 Slow IV ity of injection 15:59: Push, PRN, [place] 10 mL 00 Starting [facility] 07/29/20 at 1059, Until Discontinu ed, Routine, line maintenanc e lidocaine 2020-0 Yes 5mL 5 mL, Univers 1% (PF) 07-29 Subcutaneo ity of (XYLOCAINE) 15:59: us, PRN, [place] injection 5 00 Starting Medi ryann mL [facility] 07/29/20 at 1059, Until Discontinu ed, Routine, Local anesthesia pantoprazol 2020-0 Yes 40mg 40 mg, Univ ers e 9-14 Oral, ity of (PROTONIX) 14:00: DAILY, [place] EC tablet 00 First dose Medi ryann 40 mg on [facility] Branch 07/29/20 at 0900, Until Discontinu [...] ONCE, 1 Medic al NaCl 0.9% dose, [place] Bran h (NS) 07/28/20 at piggyback 1700, [...] dose, [place] mg 25 :00 Starting [facility] 07/28/20 at 0853, Until Discontinu ed, Routine, anxiety ALPRAZolam 2019-0 Yes 1mg 1 mg, Univer s (XANAX) 07-28 Oral, ity of tablet 1 mg 13:52: QHSPRN, [place] 54 Starting [facility] 07/28/20 at 0852, Until Discontinu ed, [...] ity of (fixed 00:45: 12:37 [place] dose) 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 HYDROmorpho 2019-0 [...] Univers en ADULT 07-26 IV ity of ([facility]) 00:21: 00:44 Infusion, [place] injection [...] Univers en ADULT 07-25 IV ity of ([facility]) 12:45: 12:44 Infusion, [place] injection [...] Push, ity of mg 06:19: 14:48 Q3HPRN, [place] 51 :46 Starting Medical 07/24/20 Branch at 0119, Until 07/28/20 at 0948, Routine, Pain (scale 7-10) morpHINE 2019-0 2020- No 4mg 4 mg, Slow Un thor injection 4 07-24 IV Push, ity of mg 03:45: 02:42 ONCE, 1 [place] 00 :00 dose, [facility] 07/23/20 at Branch 2245, STAT NaCl 0.9% 2019-0 2020- No 500mL at 999 Univ ers (NS) bolus 07-24 mL/hr, 500 it y of infusion 03:45: 03:41 mL, IV [place] 500 mL 00 :00 Infusion, Medical ONCE, 1 Mobile dose, Tu 07/23/20 at 2245, STAT NaCl 0.9% 2020-0 2020- No 1000mL at 150 Uni vers (NS) IV 07-24 mL/hr, ity of infusion 03:45: 09:49 Intravenou [place] 1,000 mL 00 :01 s, Medical CONTINUOUS Mobile , Starting 07/23/20 at 2245, Until 07/24/20 at 0449, Routine proMETHazin 2019-0 2020- No 12.5mg 12.5 mg, Univers e 07-24 IV ity of (PHENERGAN) 01:30: 01:30 Piggyback, [place] 12.5 mg in 00 :00 ONCE, 1 Medica l NaCl 0.9% dose, [facility] Bran h (NS) 50 mL 07/23/20 at piggyback 2030, 50 mL morpHINE 2020-0 2020- No 4mg 4 mg, Slow Un thor injection 4 07-24 IV Push, ity of mg 01:15: 00:22 ONCE, 1 [place] 00 :00 dose, [facility] 07/23/20 at Branch 2015, STAT morpHINE 2020-0 2020- No 4mg 4 mg, Slow Un thor injection 4 07-23 IV Push, ity of mg 22:30: 21:20 ONCE, 1 [place] 00 :00 dose, [facility] 07/23/20 at Branch 1730, STAT piperacilli 2020-0 2020- No 3.375g 3.375 g, Univers n-tazobacta 07-23 IV ity of m (ZOSYN) 22:30: 22:14 Piggyback, [place] 3.375 g in 00 :00 ONCE, 1 Medica l NaCl 0.9% dose, [facility] Bran h (NS) 100 mL 07/23/20 at MINI-BAG 1730, 100 mL
Reas on for Anti-Infec tive: Documented Infection< br>Documen carl Infection Site: Abdominal< br>Duratio n of Therapy: 7 days iohexol 2019-0 2020- No 114mL 114 mL, Unive rs (OMNIPAQUE 07-23 Intravenou it y of 350 20:46: 20:47 s, ONCE, 1 [place] BULK-150 00 :00 dose, Tue Medica l mL) 07/23/20 at Branch injection 1600, 114 mL Routine methylPREDN 2019- No 40mg 40 mg, IV Univers ISolone sod 07-23 Piggyback, i ty of succ 19:15: 19:10 ONCE, 1 [place] (SOLU-MEDRO 00 :00 dose, Tue Med ical [...] ity of mg 19:15: 18:59 ONCE, 1 [place] 00 :00 dose, e Medical 07/23/20 at Branch 1415, STAT famotidine 2019- No 20mg 20 mg, Univ ers (PEPCID 07-23 Intravenou ity o f (PF)) 18:45: 19:02 s, ONCE, 1 [place] injection 00 :00 dose, Tue Medic al [...] daily. Branch ease suspension metoprolol 2018-11 Yes [id number] 25mg Take 1 Un thor tartrate 25 0-10 tablet by ity of mg tablet 00:00: mouth 2 [place] 00 (two) Medical times Branch daily. metoprolol 2018-11 Yes [id number] 25mg Take 1 Un thor tartrate 25 0-10 tablet by ity of mg tablet 00:00: mouth 2 [place] 00 (two) Medical times Branch daily. metoprolol 2018-11 Yes [id number] 25mg Take 1 Un thor tartrate 25 0-10 tablet by ity of mg tablet 00:00: mouth 2 [place] 00 (two) Medical times Branch daily. acetaminoph 2018-11 Yes [id number] 1{tbl} Take 1 Univers en-codeine 0-10 tablet by ity of (TYLENOL-CO 00:00: mouth [place] DEINE #4) 00 every 4 Medical 300-60 mg (four) Branch tablet hours as needed for Pain. levoFLOXaci 2018-11 Yes [id number] 750mg Take 1 Univers n 750 mg 0-10 tablet by ity of tablet 00:00: mouth [place] 00 every 24 Medical (twenty-fo Branch ur) hours. metoprolol 2018-11 Yes [id number] 25mg Take 1 Un thor tartrate 25 0-10 tablet by ity of mg tablet 00:00: mouth (two) Medical times Branch daily. metoprolol 2018-11 Yes [id number] 25mg Take 1 Un thor tartrate 25 0-10 tablet by ity of mg tablet 00:00: mouth (two) Medical times Branch daily. metoprolol 2018-11 Yes [id number] 25mg Take 1 Un thor tartrate 25 0-10 tablet by ity of mg tablet 00:00: mouth (two) Medical times Branch daily. metoprolol 2018-11 Yes [id number] 25mg Take 1 Un thor tartrate 25 0-10 tablet by ity of mg tablet 00:00: mouth (two) Medical times Branch daily. metoprolol 2018-11 Yes [id number] 25mg Take 1 Un thor tartrate 25 0-10 tablet by ity of mg tablet 00:00: mouth (two) Medical times Branch daily. metoprolol 2018-11 Yes [id number] 25mg Take 1 Un thor tartrate 25 0-10 tablet by ity of mg tablet 00:00: mouth (two) Medical times Branch daily. metoprolol 2018-11 Yes [id number] 25mg Take 1 Un thor tartrate 25 0-10 tablet by ity of mg tablet 00:00: mouth (two) Medical times Branch daily. metoprolol 2018-11 Yes [id number] 25mg Take 1 Un thor tartrate 25 0-10 tablet by ity of mg tablet 00:00: mouth (two) Medical times Branch daily. metoprolol 2018-11 Yes [id number] 25mg Take 1 Un thor tartrate 25 0-10 tablet by ity of mg tablet 00:00: mouth (two) Medical times Branch daily. metoprolol 2018-11 Yes [id number] 25mg Take 1 Un thor tartrate 25 0-10 tablet by ity of mg tablet 00:00: mouth (two) Medical times Branch daily. metoprolol 2018-11 Yes [id number] 25mg Take 1 Un thor tartrate 25 0-10 tablet by ity of mg tablet 00:00: mouth (two) Medical times Branch daily. metoprolol 2018-11 Yes [id number] 25mg Take 1 Un thor tartrate 25 0-10 tablet by ity of mg tablet 00:00: mouth (two) Medical times Branch daily. metoprolol 2018-11 Yes [id number] 25mg Take 1 Un thor tartrate 25 0-10 tablet by ity of mg tablet 00:00: mouth (two) Medical times Branch daily. metoprolol 2018-11 Yes [id number] 25mg Take 1 Un thor tartrate 25 0-10 tablet by ity of mg tablet 00:00: mouth (two) Medical times Branch daily. metoprolol 2018-11 Yes [id number] 25mg Take 1 Un thor tartrate 25 0-10 tablet by ity of mg tablet 00:00: mouth (two) Medical times Branch daily. metoprolol 2018-11 Yes [id number] 25mg Take 1 Un thor tartrate 25 0-10 tablet by ity of mg tablet 00:00: mouth (two) Medical times Branch daily. metoprolol 2018-11 Yes [id number] 25mg Take 1 Un thor tartrate 25 0-10 tablet by ity of mg tablet 00:00: mouth (two) Medical times Branch daily. metoprolol 2018-11 Yes [id number] 25mg Take 1 Un thor tartrate 25 0-10 tablet by ity of mg tablet 00:00: mouth (two) Medical times Branch daily. metoprolol 2018-11 Yes [id number] 25mg Take 1 Un thor tartrate 25 0-10 tablet by ity of mg tablet 00:00: mouth (two) Medical times Branch daily. metoprolol 2018-11 Yes [id number] 25mg Take 1 Un thor tartrate 25 0-10 tablet by ity of mg tablet 00:00: mouth (two) Medical times Branch daily. metoprolol 2018-11 Yes [id number] 25mg Take 1 Un thor tartrate 25 0-10 tablet by ity of mg tablet 00:00: mouth (two) Medical times Branch daily. metoprolol 2018-11 Yes [id number] 25mg Take 1 Un thor tartrate 25 0-10 tablet by ity of mg tablet 00:00: mouth (two) Medical times Branch daily. metoprolol 2018-11 Yes [id number] 25mg Take 1 Un thor tartrate 25 0-10 tablet by ity of mg tablet 00:00: mouth (two) Medical times Branch daily. metoprolol 2018-11 Yes [id number] 25mg Take 1 Un thor tartrate 25 0-10 tablet by ity of mg tablet 00:00: mouth (two) Medical times Branch daily. metoprolol 2018-11 Yes [id number] 25mg Take 1 Un thor tartrate 25 0-10 tablet by ity of mg tablet 00:00: mouth (two) Medical times Branch daily. metoprolol 2018-11 Yes [id number] 25mg Take 1 Un thor tartrate 25 0-10 tablet by ity of mg tablet 00:00: mouth (two) Medical times Branch daily. metoprolol 2018-11 Yes [id number] 25mg Take 1 Un thor tartrate 25 0-10 tablet by ity of mg tablet 00:00: mouth (two) Medical times Branch daily. metoprolol 2018-11 Yes [id number] 25mg Take 1 Un thor tartrate 25 0-10 tablet by ity of mg tablet 00:00: mouth (two) Medical times Branch daily. metoprolol 2018-11 Yes [id number] 25mg Take 1 Un thor tartrate 25 0-10 tablet by ity of mg tablet 00:00: mouth (two) Medical times Branch daily. metoprolol 2018-11 Yes [id number] 25mg Take 1 Un thor tartrate 25 0-10 tablet by ity of mg tablet 00:00: mouth (two) Medical times Branch daily. metoprolol 2018-11 Yes [id number] 25mg Take 1 Un thor tartrate 25 0-10 tablet by ity of mg tablet 00:00: mouth (two) Medical times Branch daily. metoprolol 2018-11 Yes [id number] 25mg Take 1 Un thor tartrate 25 0-10 tablet by ity of mg tablet 00:00: mouth (two) Medical times Branch daily. metoprolol 2018-11 Yes [id number] 25mg Take 1 Un thor tartrate 25 0-10 tablet by ity of mg tablet 00:00: mouth (two) Medical times Branch daily. metoprolol 2018-11 Yes [id number] 25mg Take 1 Un thor tartrate 25 0-10 tablet by ity of mg tablet 00:00: mouth (two) Medical times Branch daily. metoprolol 2018-11 Yes [id number] 25mg Take 1 Un thor tartrate 25 0-10 tablet by ity of mg tablet 00:00: mouth (two) Medical times Branch daily. metoprolol 2018-11 Yes [id number] 25mg Take 1 Un thor tartrate 25 0-10 tablet by ity of mg tablet 00:00: mouth (two) Medical times Branch daily. metoprolol 2018-11 Yes [id number] 25mg Take 1 Un thor tartrate 25 0-10 tablet by ity of mg tablet 00:00: mouth (two) Medical times Branch daily. metoprolol 2018-11 Yes [id number] 25mg Take 1 Un thor tartrate 25 0-10 tablet by ity of mg tablet 00:00: mouth (two) Medical times Branch daily. metoprolol 2018-11 Yes [id number] 25mg Take 1 Un thor tartrate 25 0-10 tablet by ity of mg tablet 00:00: mouth (two) Medical times Branch daily. metoprolol 2018-11 Yes [id number] 25mg Take 1 Un thor tartrate 25 0-10 tablet by ity of mg tablet 00:00: mouth (two) Medical times Branch daily. metoprolol 2018-11 Yes [id number] 25mg Take 1 Un thor tartrate 25 0-10 tablet by ity of mg tablet 00:00: mouth (two) Medical times Branch daily. metoprolol 2018-11 2020- No [id number] 25mg Take 1 U nivers tartrate 25 0-10 12-16 tablet by it y of mg tablet 00:00[place] [facility] times [facility] daily. acetaminoph 2018-11 2020- No [id number] 1{tbl} Take 1 Univers en-codeine 0-10 09-17 tablet by ity of (TYLENOL-CO 00:00: 00:[place] DE[place] #4[place] 00 :00 every 4 Medical 300-60 mg (four) Branch tablet hours as needed for Pain. levoFLOXaci 2018-11 2020- No [id number] 750mg Take 1 Univers n 750 mg 0-10 09-17 tablet by ity o f tablet 00:00: 00:00 mouth [place] 00 :00 every 24 Medical (twenty-fo Branch ur) hours. proMETHazin 2018-11 Yes [id number] 25mg Take 1 Univers e 25 mg 0-04 tablet by ity of tablet 00:00: mouth [place] 00 every 6 Medical (six) Branch hours as needed for Nausea and Vomiting (N/V). proMETHazin 2018-11 Yes [id number] 25mg Take 1 Univers e 25 mg 0-04 tablet by ity of tablet 00:00: mouth [place] 00 every 6 Medical (six) Branch hours as needed for Nausea and Vomiting (N/V). proMETHazin 2018-11 Yes [id number] 25mg Take 1 Univers e 25 mg 0-04 tablet by ity of tablet 00:00: mouth [place] 00 every 6 Medical (six) Branch hours as needed for Nausea and Vomiting (N/V). proMETHazin 2018-11 Yes [id number] 25mg Take 1 Univers e 25 mg 0-04 tablet by ity of tablet 00:00: mouth [place] 00 every 6 Medical (six) Branch hours as needed for Nausea and Vomiting (N/V). proMETHazin 2018-11 Yes [id number] 25mg Take 1 Univers e 25 mg 0-04 tablet by ity of tablet 00:00: mouth [place] 00 every 6 Medical (six) Branch hours as needed for Nausea and Vomiting (N/V). proMETHazin 2018-11 Yes [id number] 25mg Take 1 Univers e 25 mg 0-04 tablet by ity of tablet 00:00: mouth [place] 00 every 6 Medical (six) Branch hours as needed for Nausea and Vomiting (N/V). proMETHazin 2018-11 Yes [id number] 25mg Take 1 Univers e 25 mg 0-04 tablet by ity of tablet 00:00: mouth [place] 00 every 6 Medical (six) Branch hours as needed for Nausea and Vomiting (N/V). proMETHazin 2018-11 Yes [id number] 25mg Take 1 Univers e 25 mg 0-04 tablet by ity of tablet 00:00: mouth [place] 00 every 6 Medical (six) Branch hours as needed for Nausea and Vomiting (N/V). proMETHazin 2018-11 Yes [id number] 25mg Take 1 Univers e 25 mg 0-04 tablet by ity of tablet 00:00: mouth [place] 00 every 6 Medical (six) Branch hours as needed for Nausea and Vomiting (N/V). proMETHazin 2018-11 Yes [id number] 25mg Take 1 Univers e 25 mg 0-04 tablet by ity of tablet 00:00: mouth [place] 00 every 6 Medical (six) Branch hours as needed for Nausea and Vomiting (N/V). proMETHazin 2018-11 Yes [id number] 25mg Take 1 Univers e 25 mg 0-04 tablet by ity of tablet 00:00: mouth [place] 00 every 6 Medical (six) Branch hours as needed for Nausea and Vomiting (N/V). proMETHazin 2018-11 Yes [id number] 25mg Take 1 Univers e 25 mg 0-04 tablet by ity of tablet 00:00: mouth [place] 00 every 6 Medical (six) Branch hours as needed for Nausea and Vomiting (N/V). proMETHazin 2018-11 Yes [id number] 25mg Take 1 Univers e 25 mg 0-04 tablet by ity of tablet 00:00: mouth [place] 00 every 6 Medical (six) Branch hours as needed for Nausea and Vomiting (N/V). proMETHazin 2018-11 Yes [id number] 25mg Take 1 Univers e 25 mg 0-04 tablet by ity of tablet 00:00: mouth [place] 00 every 6 Medical (six) Branch hours as needed for Nausea and Vomiting (N/V). proMETHazin 2018-11 Yes [id number] 25mg Take 1 Univers e 25 mg 0-04 tablet by ity of tablet 00:00: mouth [place] 00 every 6 Medical (six) Branch hours as needed for Nausea and Vomiting (N/V). proMETHazin 2018-11 Yes [id number] 25mg Take 1 Univers e 25 mg 0-04 tablet by ity of tablet 00:00: mouth [place] 00 every 6 Medical (six) Branch hours as needed for Nausea and Vomiting (N/V). proMETHazin 2018-11 Yes [id number] 25mg Take 1 Univers e 25 mg 0-04 tablet by ity of tablet 00:00: mouth [place] 00 every 6 Medical (six) Branch hours as needed for Nausea and Vomiting (N/V). proMETHazin 2018-11 Yes [id number] 25mg Take 1 Univers e 25 mg 0-04 tablet by ity of tablet 00:00: mouth [place] 00 every 6 Medical (six) Branch hours as needed for Nausea and Vomiting (N/V). proMETHazin 2018-11 Yes [id number] 25mg Take 1 Univers e 25 mg 0-04 tablet by ity of tablet 00:00: mouth [place] 00 every 6 Medical (six) Branch hours as needed for Nausea and Vomiting (N/V). proMETHazin 2018-11 Yes [id number] 25mg Take 1 Univers e 25 mg 0-04 tablet by ity of tablet 00:00: mouth [place] 00 every 6 Medical (six) Branch hours as needed for Nausea and Vomiting (N/V). proMETHazin 2018-11 Yes [id number] 25mg Take 1 Univers e 25 mg 0-04 tablet by ity of tablet 00:00: mouth [place] 00 every 6 Medical (six) Branch hours as needed for Nausea and Vomiting (N/V). proMETHazin 2018-11 Yes [id number] 25mg Take 1 Univers e 25 mg 0-04 tablet by ity of tablet 00:00: mouth [place] 00 every 6 Medical (six) Branch hours as needed for Nausea and Vomiting (N/V). proMETHazin 2018-11 Yes [id number] 25mg Take 1 Univers e 25 mg 0-04 tablet by ity of tablet 00:00: mouth [place] 00 every 6 Medical (six) Branch hours as needed for Nausea and Vomiting (N/V). proMETHazin 2018-11 Yes [id number] 25mg Take 1 Univers e 25 mg 0-04 tablet by ity of tablet 00:00: mouth [place] 00 every 6 Medical (six) Branch hours as needed for Nausea and Vomiting (N/V). proMETHazin 2018-11 Yes [id number] 25mg Take 1 Univers e 25 mg 0-04 tablet by ity of tablet 00:00: mouth [place] 00 every 6 Medical (six) Branch hours as needed for Nausea and Vomiting (N/V). proMETHazin 2018-11 Yes [id number] 25mg Take 1 Univers e 25 mg 0-04 tablet by ity of tablet 00:00: mouth [place] 00 every 6 Medical (six) Branch hours as needed for Nausea and Vomiting (N/V). proMETHazin 2019-1 2020- No [id number] 25mg Take 1 Univers e 25 mg [...] [facility] NaCl 0.9% 06/15/19 at [facility] h (NS) 50 mL 1515, 50 piggyback mL morpHINE 2018- No 4mg 4 mg, Slow Un thor injection 4 06-15 IV Push, ity of mg 20:15: 19:30 ONCE, 1 [place] 00 :00 dose, [facility] Medical 06/15/19 at Branch 1515, STAT iohexol [...] :00 ONCE, 1 Medical 25 mg dose, [facility] Branch 06/15/19 at 1345, STAT famotidine 2018- [...] [facility] NaCl 0.9% 06/15/19 at Bran h (NS) 50 mL 1345, 50 piggyback mL NaCl 0.9% 2018- No 1000mL at 999 Uni vers (NS) bolus 06-15 mL/hr, ity of infusion 17:00: 20:03 1,000 mL, [place] 1,000 mL 00 :00 IV Medical Infusion, Branch ONCE, 1 dose, [facility] 06/15/19 at 1200, LUISA proMETHazin Yes [id number] 25mg Take 1 U nivers e 25 mg 06-15 tablet by ity of tablet 00:00: mouth [place] 00 every 6 Medical (six) Branch hours as needed for Nausea and Vomiting (N/V). famotidine 2019- No [id number] 40mg Take 1 U nivers 40 mg 06-15 tablet by ity of tablet 00:00: 04:59 mouth [place] 00 :00 daily for Medical 14 days. Branch predniSONE Yes [id number] Take 1 U nivers 10 mg 4-26 tablet ity of tablet 00:00: daily. [place] 00 Medical Branch proMETHazin Yes [id number] 25mg Insert 1 Univers e 25 mg [...] tablet by ity of (TYLENOL 00:00: mouth [place] #3) 300-30 00 every 6 Medica l [...] Nausea and Vomiting (N/V). proMETHazin 2010-11 Yes [id number] 12.5mg Take 1 Tab Univers e 2-23 by mouth ity of (PHENERGAN) 00:00: every 6 [place] 12.5 mg 00 (six) Medical tablet hours as Branch needed for Nausea and Vomiting. Vital Signs Vital Name Observation Time Observation Value Comments Source Systolic blood 2020-10-30 92 mm[Hg] University of pressure 22:01:00 [facility] Diastolic blood 2020-10-30 65 mm[Hg] University o f pressure 22:01:00 [place] [facility] Heart rate 2020-10-30 104 /min University of 22:01:00 [place] [facility] Body temperature 2020-10-30 36.83 Tayla University of 22:01:00 [place] [facility] Respiratory rate 2020-10-30 18 /min University of 22:01:00 [facility] Branch Oxygen saturation 2020-10-30 96 /min University of in Arterial blood 22:01:00 [place] [facility]ann by Pulse oximetry Branch Body weight 2020-10-24 61.2 kg University of 19:35:00 [place] [facility] BMI 2020-10-24 21.13 kg/m2 University of 19:35:00 [facility] Branch Systolic blood 2020-10-30 92 mm[Hg] University of pressure 22:01:00 [facility] Branch Diastolic blood 2020-10-30 65 mm[Hg] University o f pressure 22:01:00 [place] [facility] Heart rate 2020-10-30 104 /min University of :01:00 [facility] Body temperature 2020-10-30 36.83 Tayla University of :01:00 [place] [facility] Respiratory rate 2020-10-30 18 /min University of :01:00 [facility] Branch Oxygen saturation 2020-10-30 96 /min University of in Arterial blood 22:01:00 [place] [facility] by Pulse oximetry Branch Body weight 2020-10-24 61.2 kg University of 19:35:00 [facility] BMI 2020-10-24 21.13 kg/m2 University of 19:35:00 [facility] Branch Systolic blood 2020-10-19 92 mm[Hg] University of pressure 19:08:00 [place] [facility] Diastolic blood 2020-10-19 63 mm[Hg] University o f pressure 19:08:00 [place] [facility] Heart rate 2020-10-19 98 /min University of 19:08:00 [facility] Branch Body temperature 2020-10-19 36.17 Tayla University of 19:08:00 [place] [facility] Respiratory rate 2020-10-19 18 /min University of 19:08:00 [facility] Branch Oxygen saturation 2020-10-19 100 /min University of in Arterial blood 19:08:00 [place] [facility]ann by Pulse oximetry Branch Body height 2020-10-14 170.2 cm University of 12:21: [place] [facility] Body weight 2020-10-14 55.1 kg University of 12:21:00 [facility] BMI 2020-10-14 19.03 kg/m2 University of 12:21:00 [facility] Systolic blood 2020-10-19 92 mm[Hg] University of pressure 19:08:00 [facility] Branch Diastolic blood 2020-10-19 63 mm[Hg] University o f pressure 19:08:00 [facility] Heart rate 2020-10-19 98 /min University of 19:08:00 [facility] Body temperature 2020-10-19 36.17 Tayla University of 19:08:00 [facility] Respiratory rate 2020-10-19 18 /min University of 19:08:00 [facility] Oxygen saturation 2020-10-19 100 /min University of in Arterial blood 19:08:00 [facility] ryann by Pulse oximetry Branch Body height 2020-10-14 170.2 cm University of 12:21: [facility] Body weight 2020-10-14 55.1 kg University of 12:21:00 [facility] BMI 2020-10-14 19.03 kg/m2 University of 12:21:00 [facility] Respiratory rate 2020-10-02 20 /min University of 06:35:00 [facility] Oxygen saturation 2020-10-02 97 /min University of in Arterial blood 06:35:00 [facility] by Pulse oximetry Branch Systolic blood 2020-10-02 122 mm[Hg] University of pressure 04:53:00 [facility] Diastolic blood 2020-10-02 88 mm[Hg] University o f pressure 04:53:00 [facility] Heart rate 2020-10-02 133 /min University of 04:53:00 [facility] Body temperature 2020-10-02 37.28 Tayla University of 04:53:00 [facility] Body height 2020-10-02 170 cm University of 04:53:00 [facility] Body weight 2020-10-02 58.968 kg University of 04:53:00 [facility] BMI 2020-10-02 20.40 kg/m2 University of 04:53:00 [facility] Systolic blood 2020-09-27 98 mm[Hg] University of pressure 15:38:00 [facility] Diastolic blood 2020-09-27 64 mm[Hg] University o f pressure 15:38:00 [facility] Heart rate 2020-09-27 86 /min University of 15:38:00 [facility] Body temperature 2020-09-27 37.06 Tayla University of 15:38:00 [facility] Body height 2020-09-27 170.2 cm University of 15:38:00 [facility] Body weight 2020-09-27 59.104 kg University of 15:38:00 [facility] BMI 2020-09-27 20.41 kg/m2 University of 15:38:00 [facility] Oxygen saturation 2020-09-27 100 /min University of in Arterial blood 15:38:00 [facility] ryann by Pulse oximetry Branch Systolic blood 2020-09-18 106 mm[Hg] University of pressure 21:45:00 [facility] Diastolic blood 2020-09-18 68 mm[Hg] University o f pressure 21:45:00 [facility] Heart rate 2020-09-18 101 /min University of :45:00 [facility] Body temperature 2020-09-18 36.22 Tayla University of 21:45:00 [facility] Respiratory rate 2020-09-18 18 /min University of 21:45:00 [facility] Oxygen saturation 2020-09-18 98 /min University of in Arterial blood 21:45:00 [facility] by Pulse oximetry Branch Body weight 2020-09-18 61.236 kg With one University of 10:59:00 blanket and [facility]. Branch BMI 2020-09-18 21.14 kg/m2 University of 10:59:00 [facility] Body height 2020-09-13 170.2 cm University of 20:47:00 [facility] Systolic blood 2020-09-01 129 mm[Hg] University of pressure 11:00:00 [facility] Diastolic blood 2020-09-01 86 mm[Hg] University o f pressure 11:00:00 [facility] Heart rate 2020-09-01 102 /min University of 11:00:00 [facility] Body temperature 2020-09-01 37.67 Tayla University of 10:00:00 [facility] Respiratory rate 2020-09-01 18 /min University of 10:00:00 [facility] Oxygen saturation 2020-09-01 100 /min University of in Arterial blood 10:00:00 [facility] ryann by Pulse oximetry Branch Body weight 2020-09-01 58.968 kg University of 06:45:00 [facility] BMI 2020-09-01 20.36 kg/m2 University of 06:45:00 [facility] Systolic blood 2020-08-24 124 mm[Hg] University of pressure 00:00:00 [place] [facility] Diastolic blood 2020-08-24 90 mm[Hg] University o f pressure 00:00:00 [place] [facility] Heart rate 2020-08-24 89 /min University of 00:00:00 [place] [facility] Respiratory rate 2020-08-24 20 /min University of 00:00:00 [place] [facility] Oxygen saturation 2020-08-24 100 /min University of in Arterial blood 00:00:00 [place] [facility] by Pulse oximetry Branch Body temperature 2020-08-23 36.61 Tayla University of 22:27:00 [place] [facility] Body weight 2020-08-23 58.968 kg University of 22:27:00 [facility] Branch BMI 2020-08-23 20.36 kg/m2 University of 22:27:00 [facility] Branch Systolic blood 2020-08-20 117 mm[Hg] University of pressure 16:22: [facility] Diastolic blood 2020-08-20 86 mm[Hg] University o f pressure 16:22:00 [facility] Branch Heart rate 2020-08-20 129 /min University of 16:22:00 [place] [facility] Body temperature 2020-08-20 36.89 Tayla University of 16:21:00 [place] [facility] Respiratory rate 2020-08-20 16 /min University of 16:21:00 [facility] Branch Body height 2020-08-20 170.2 cm University of 16:21:00 [place] [facility] Body weight 2020-08-20 57.607 kg University of 16:21:00 [facility] BMI 2020-08-20 19.89 kg/m2 University of 16:21:00 [facility] Branch Systolic blood 2020-08-18 115 mm[Hg] University of pressure 04:00:00 [place] [facility] Branch Diastolic blood 2020-08-18 79 mm[Hg] University o f pressure 04:00:00 [place] [facility] Heart rate 2020-08-18 104 /min University of 04:00:00 [place] [facility] Respiratory rate 2020-08-18 17 /min University of 04:00:00 [facility] Branch Oxygen saturation 2020-08-18 100 /min University of in Arterial blood 04:00:00 [place] [facility] by Pulse oximetry Branch Body temperature 2020-08-18 37.06 Tayla University of 00:44:00 [place] [facility] Body weight 2020-08-18 56.7 kg University of 00:44:00 [facility] BMI 2020-08-18 19.58 kg/m2 University of 00:44:00 [facility] Branch Systolic blood 2020-08-09 153 mm[Hg] University of pressure 15:40:00 [facility] Branch Diastolic blood 2020-08-09 83 mm[Hg] University o f pressure 15:40:00 [facility] Branch Heart rate 2020-08-09 143 /min University of 15:40:00 [facility] Body temperature 2020-08-09 36.83 Tayla University of 15:40:00 [facility] Branch Body height 2020-08-09 170.2 cm University of 15:40:00 [facility] Body weight 2020-08-09 56.473 kg University of 15:40:00 [facility] BMI 2020-08-09 19.50 kg/m2 University of 15:40:00 [facility] Oxygen saturation 2020-08-09 100 /min University of in Arterial blood 15:40:00 [facility] ryann by Pulse oximetry Branch Systolic blood 2020-08-01 126 mm[Hg] University of pressure 13:03:00 [facility] Diastolic blood 2020-08-01 76 mm[Hg] University o f pressure 13:03:00 [facility] Heart rate 2020-08-01 119 /min University of 13:03:00 [facility] Body temperature 2020-08-01 36.67 Tayla University of 13:03:00 [facility] Branch Respiratory rate 2020-08-01 16 /min University of 13:03:00 [facility] Oxygen saturation 2020-08-01 99 /min University of in Arterial blood 13:03:00 [facility] ryann by Pulse oximetry Branch Body weight 2020-07-23 70.308 kg University of 16:57:00 [facility] BMI 2020-07-23 24.28 kg/m2 University of 16:57:00 [facility] Systolic blood 2019-06-15 110 mm[Hg] University of pressure 18:22:00 [facility] Branch Diastolic blood 2019-06-15 57 mm[Hg] University o f pressure 18:22:00 [facility] Branch Heart rate 2019-06-15 91 /min University of 18:22:00 [facility] Branch Respiratory rate 2019-06-15 18 /min University of 18:22:00 [facility] Branch Oxygen saturation 2019-06-15 98 /min University of in Arterial blood 18:22:00 [place] [facility] by Pulse oximetry Branch Body temperature 2019-06-15 38 Tayla [facility] 16:54:00 [facility] Body weight 2019-06-15 83.915 kg [facility] 16:54:00 [facility] BMI 2019-06-15 28.98 kg/m2 [facility] 16:54:00 [facility] Procedures Procedure Date / Time Performing Clinician Source Performed AUTHORIZATION FOR RELEASE 2021-06-18 05:01:00 Doctor Unassigned, [facility] Name [facility] EXTERNAL PROVIDER RECORDS 2020-11-20 06:01:00 Doctor Unassigned, [facility] Name [facility] CBC WITH DIFF 2020-10-29 13:10:00 Sravan [facility] MAGNESIUM 2020-10-29 09:36:00 [facility] BASIC METABOLIC PANEL 2020-10-29 09:36:00 [facility] (NA, K, CL, CO2, GLUCOSE, [facility] BUN, CREATININE, CA) PHOSPHORUS 2020-10-28 10:00:00 Ehsan [facility] MAGNESIUM 2020-10-28 10:[facility] 2020-10-28 10:00:00 [facility] (NA, K, CL, CO2, GLUCOSE, [facility] BUN, CREATININE, CA) CBC WITH DIFF 2020-10-28 09:59[facility] 2020-10-27 07:05:00 Ehsan [facility] BASIC METABOLIC PANEL 2020-10-27 07:05:00 Ehsan [facility] (NA, K, CL, CO2, GLUCOSE, Medica l Branch BUN, CREATININE, CA) CBC WITH DIFF 2020-10-27 07:05:00 [place] [facility] URINALYSIS 2020-10-27 07:05:00 Suraj [facility] URINE CULTURE 2020-10-27 07:05:00 Sur[facility] CBC WITH DIFF 2020-10-26 11:43:00 [place] [facility] PHOSPHORUS 2020-10-26 03:41:00 Ehsan [facility] MAGNESIUM 2020-10-26 03:41:00 Ehsan [facility] BASIC METABOLIC PANEL 2020-10-26 03:41:00 [facility] (NA, K, CL, CO2, GLUCOSE, Medica l Branch BUN, CREATININE, CA) CBC WITH DIFF 2020-10-26 03:41:00 Ehsan [facility] COVID-19 (ID NOW RAPID 2020-10-25 01:26:00 Ehsan [facility] TESTING) Medical Branch LAB ONLY COVID 2020-10-25 01:26:[facility] BASIC METABOLIC PANEL 2020-10-24 22:27:00 Sravan [facility] (NA, K, CL, CO2, GLUCOSE, Medica l Branch BUN, CREATININE, CA) CBC WITH DIFF 2020-10-24 22:27:00 Leticia [facility] CT ABDOMEN PELVIS W 2020-10-24 21:20:40 Rena Moser [facility] CONTRAST [facility] BASIC METABOLIC PANEL 2020-10-17 23:11:00 [place]e [facility] (NA, K, CL, CO2, GLUCOSE, Medica l Branch BUN, CREATININE, CA) CLOSTRIDIUM DIFFICILE 2020-10-17 [facility]:24[facility] MRSA / MSSA SCREEN BY 2020-10-15 01:09:00 Mandeep Garnica [facility] PHILL BERMUDEZ [facility] SURGICAL PATHOLOGY EXAM 2020-10-14 15:01:00 [facility] EXPLORATORY LAPAROTOMY 2020-10-14 13:10:00 [facility] ILEOSTOMY TAKEDOWN 2020-10-14 13:10:00 [place] [facility] ASSIGNMENT OF BENEFITS 2020-10-14 11:29:56 Doctor Unassigned, Un [facility] URINALYSIS 2020-10-02 05:22:00 Ebony Chakraborty [facility] LIPASE 2020-10-02 05:19:00 Ebony Chakraborty [facility] HEPATIC FUNCTION PANEL 2020-10-02 05:19:00 Ebony Chakraborty [facility] ([id number]) (ALB,T.PRO,BILI Medical Branch T,BU/BC,ALT,AST,ALK PHOS) BASIC METABOLIC PANEL 2020-10-02 05:19:00 Ebony Chakraborty [facility] (NA, K, CL, CO2, GLUCOSE, Medica l Branch BUN, CREATININE, CA) CBC WITH DIFF 2020-10-02 05:19:00 Ebony Chakraborty [facility] CONSENT/REFUSAL FOR 2020-10-02 04:45:02 Doctor Unassigned, [facility] DIAGNOSIS AND TREATMENT [facility] COMP. METABOLIC PANEL 2020-09-16 12:00:00 [id number] COMP. METABOLIC PANEL 2020-09-15 09:58:00 [facility] ([id number]) Medical Branch CREATINE KINASE 2020-09-14 16:03:00 [facility] HEPATIC FUNCTION PANEL 2020-09-14 16:03:00 Roby Jean [facility] ([id number]) (ALB,T.PRO,BILI Medical Branch T,BU/BC,ALT,AST,ALK PHOS) BASIC METABOLIC PANEL 2020-09-14 16:03:00 [facility] (NA, K, CL, CO2, GLUCOSE, Medica l Branch BUN, CREATININE, CA) HEPATITIS B SURFACE 2020-09-14 10:15:00 ryan [facility] ANTIBODY [facility] Branch HEPATITIS B SURFACE 2020-09-14 10:15:00 [facility] Medical Branch HCV BY PCR 2020-09-14 10:15:00 [facility] HB ECG ROUTINE & RHYTHM 2020-09-13 18:17:57 Delta Hellen [facility] STRIP [facility] Branch MAGNESIUM 2020-09-13 18:16:00 [facility] TROPONIN I 2020-09-13 18:16:00 Delta [facility] Branch LIPASE 2020-09-13 17:15:00 [facility] COMP. METABOLIC PANEL 2020-09-13 17:15:00 Delta Hellen [facility] ([id number]) Medical Branch CBC WITH DIFF 2020-09-13 17:15:00 Delta [facility] XR ABDOMEN 2 VW 2020-09-13 16:44:14 [facility] 2020-09-13 05:01:00 Doctor Unassigned, [facility] DOCUMENTS [facility] CT ABDOMEN PELVIS W 2020-09-01 08:02:47 Shayla Munoz [facility] CONTRAST Medical Branch LIPASE 2020-09-01 07:10:00 Shayla Munoz [facility] COMP. METABOLIC PANEL 2020-09-01 07:10:00 Shayla Munoz [facility] ([id number]) Medical Branch CBC WITH DIFF 2020-09-01 07:10:00 Shayla Munoz [facility] CT ABDOMEN PELVIS W 2020-08-24 01:30:05 Matthias Silvestre [facility] CONTRAST Medical Branch LIPASE 2020-08-23 23:52:00 Matthias Silvestre [facility] CBC WITH DIFF 2020-08-23 23:52:00 Matthias Sil[facility]re [facility] CONSENT/REFUSAL FOR 2020-08-23 22:12:59 Doctor Unassigned, [facility] DIAGNOSIS AND TREATMENT [facility] CT ABDOMEN PELVIS W 2020-08-18 02:24:35 Shayla Munoz [facility] CONTRAST Medical Branch LIPASE 2020-08-18 01:23:00 Shayla Munoz [facility] COMP. METABOLIC PANEL 2020-08-18 01:23:00 Shayla Munoz [facility] ([id number]) Medical Branch CBC WITH DIFF 2020-08-18 01:23:00 Shayla Munoz [facility] COVID-19 (ID NOW RAPID 2020-08-18 01:23:00 Shayla Munoz [facility] TESTING) Medical Mobile NOTICE OF PRIVACY 2020-08-18 00:35:45 Doctor Unassigned, [facility] PRACTICES [facility] CONSENT/REFUSAL FOR 2020-08-18 00:31:36 Doctor Unassigned, [facility] DIAGNOSIS AND TREATMENT [facility] AUTHORIZATION TO RELEASE 2020-08-09 05:01:00 Doctor Unawendy, [facility] PHI TO [facility] PHOSPHORUS 2020-08-01 08:47:00 [facility] 2020-08-01 08:47:00 [facility] BASIC METABOLIC PANEL 2020-08-01 08:47:00 [facility] (NA, K, CL, CO2, GLUCOSE, Medica l Branch BUN, CREATININE, CA) CBC WITH DIFF 2020-08-01 08:47:00 [facility] PHOSPH[facility]US 2020-07-31 10:06:00 [facility] MAGNESIUM 2020-07-31 10:06:00 [facility] BASIC METABOLIC PANEL 2020-07-31 10:06:00 [facility] (NA, K, CL, CO2, GLUCOSE, Medica l Branch BUN, CREATININE, CA) CBC WITH DIFF 2020-07-31 10:06:00 [facility] PHOSPHORUS 2020-07-30 09:29:00 [facility] MAGNESIUM 2020-07-30 09:29:00 [facility] BASIC METABOLIC PANEL 2020-07-30 09:29:00 [facility] (NA, K, CL, CO2, GLUCOSE, Medica l Branch BUN, CREATININE, CA) BASIC METABOLIC PANEL 2020-07-29 10:11:00 [facility] (NA, K, CL, CO2, GLUCOSE, Medica l Branch BUN, CREATININE, CA) CBC WITHOUT DIFF 2020-07-29 10:11:00 [facility] PROTHROMBIN TIME / INR 2020-07-29 10:11:00 [facility] ACTIVATED PARTIAL 2020-07-29 10:11:[address] [facility] FIBRINOGEN 2020-07-29 10:11:00 [facility] TUBE [facility]. BLUE 2020-07-29 10:11:00 Kalee Darren [facility] EXTRA TUBE LT. GREEN 2020-07-29 10:11:00 Kalee [facility] XR KUB 2020-07-29 09:55:00 [facility] CBC WITHOUT DIFF 2020-07-28 10:15:00 Devan [facility] BASIC METABOLIC PANEL 2020-07-28 09:47:00 Farooq Hartman [facility] (NA, K, CL, CO2, GLUCOSE, Jose Angel Medica l Branch BUN, CREATININE, CA) BASIC METABOLIC PANEL 2020-07-27 10:39:00 Farooq Hartman [facility] (NA, K, CL, CO2, GLUCOSE, Jose Angel [facility] BUN, CREATININE, CA) CBC WITHOUT DIFF 2020-07-27 10:39:00 Devan [facility] BASIC METABOLIC PANEL 2020-07-26 07:53:00 Farooq Hartman [facility] (NA, K, CL, CO2, GLUCOSE, Jose Angel [facility] l Branch BUN, CREATININE, CA) CBC WITHOUT DIFF 2020-07-26 07:53:00 Farooq Hartman [facility] MAGNESIUM 2020-07-26 00:13:00 Devan [facility] BASIC METABOLIC PANEL 2020-07-26 00:13:00 Farooq Hartman [facility] (NA, K, CL, CO2, GLUCOSE, Jose Angel [facility] Branch BUN, CREATININE, CA) CBC WITHOUT DIFF 2020-07-26 00:13:00 Devan [facility] PROTHROMBIN TIME / INR 2020-07-26 00:13:00 Farooq Hartman [facility] ACTIVATED PARTIAL 2020-07-26 00:13:00 Farooq Hartman [facility] SURGICAL PATHOLOGY EXAM 2020-07-25 22:08:00 Kalee [facility] ILEOSTOMY 2020-07-25 20:18:00 [facility] ILEOCECECTOMY 2020-07-25 20:18:00 Kalee [facility] o [facility] BASIC METABOLIC PANEL 2020-07-25 11:35:00 [facility] (NA, K, CL, CO2, GLUCOSE, Medica l Branch BUN, CREATININE, CA) CBC WITHOUT DIFF 2020-07-25 11:35:00 Parag [facility] ABORH CONFIRMATION 2020-07-25 04:37:00 Mercedez Canela [facility] HB ABO GROUPING 2020-07-25 04:12:00 Oliver Nunez [facility] BASIC METABOLIC PANEL 2020-07-24 07:34:00 Dc Jay [facility] (NA, K, CL, CO2, GLUCOSE, Medica l Branch BUN, CREATININE, CA) CBC WITHOUT DIFF 2020-07-24 07:34:00 Dc Jay [facility] XR ABDOMEN 1 VW 2020-07-24 06:56:00 Dc Jay [facility] EKG-12 LEAD 2020-07-24 06:39:07 Farooq Zepeda [facility] COVID-19 (ID NOW RAPID 2020-07-24 00:26:00 Mercedez Canela [facility] ACID WHOLE BLOOD 2020-07-24 00:24:00 Mercedez Canela [facility] BLOOD CULTURE SCREEN 2020-07-23 21:41:00 Mercedez Canela [facility] LACTIC ACID WHOLE BLOOD 2020-07-23 21:41:00 Mercedez Canela [facility] CT ABDOMEN PELVIS W 2020-07-23 20:56:34 Mercedez Canela [facility] LIPASE 2020-07-23 19:31:00 Mercedez Canela [facility] HEPATIC FUNCTION PANEL 2020-07-23 19:31:00 Mercedez Canela [facility] ([id number]) (ALB,T.PRO,BILI Medical Branch T,BU/BC,ALT,AST,ALK PHOS) BASIC METABOLIC PANEL 2020-07-23 19:31:00 Mercedez Canela [facility] (NA, K, CL, CO2, GLUCOSE, Medica l Branch BUN, CREATININE, CA) CBC WITH DIFF 2020-07-23 19:31:00 Mercedez Canela [facility] URINALYSIS 2020-07-23 19:19:00 Mercedez Canela [facility] NOTICE OF PRIVACY 2020-07-23 16:48:03 Doctor Unassigned, [facility] PRACTICES [facility] CONSENT/REFUSAL FOR 2020-07-23 16:47:54 Doctor Unassmaria del carmen, [facility] DIAGNOSIS AND TREATMENT [facility] AGREEMENTS AUTHORIZATIONS 2020-07-23 05:01:00 Doctor Unassmaria del carmen, [facility] AND IRREVOCABLE [facility] ASSIGNMENTS (FORM 2001) CT ABDOMEN PELVIS W 2019-06-15 18:45:34 Mary Jo Dukes [facility] CONTRAST [facility] LACTIC ACID WHOLE BLOOD 2019-06-15 17:46:00 Mary Jo Dukes [facility] LIPASE 2019-06-15 17:30:00 Mary Jo Dukes [facility] HEPATIC FUNCTION PANEL 2019-06-15 17:30:00 Mary Jo Dukes [facility] ([id number]) [facility] T,BU/BC,ALT,AST,ALK PHOS) BASIC METABOLIC PANEL 2019-06-15 17:30:00 Mary Jo Dukes Un [facility] (NA, K, CL, CO2, GLUCOSE, Medica l Branch BUN, CREATININE, CA) CBC WITH DIFFERENTIAL 2019-06-15 17:30:00 Mary Jo Dukes Un [facility] POCT TEST 2019-06-15 17:24:00 Mary Jo Dukes [facility] URINALYSIS 2019-06-15 17:22:00 Mary Jo Dukes [facility] NOTICE OF PRIVACY 2019-06-15 16:39:09 Doctor Tevin Mendez [facility] [place] PRACTICES [facility] CONSENT/REFUSAL FOR 2019-06-15 16:38:53 Doctor Hernandez Mendez [facility] DIAGNOSIS AND TREATMENT [facility] Encounters Start End Encounter Admission Attending Care Care Encounter Source Date/Time Date/Time Type Type Clinicians Facility Department ID 2021-09-13 Emergency X KALEE DARREN [facility] JASIEL [id number] Univers 10:26:40 ity of [facility] 2021-09-[address] [facility] [id number] Univers 06:14:00 ity of [facility] 2021-09-13 Outpatient DARREN CLARK [facility] [id number] Univers 05:23:22 ity of [facility] 2021-09-[address] [facility] [id number] Univers 04:35:58 ity of [facility] 2021-09-[address] [facility] [id number] Univers 02:03:39 ity of [facility] 2021-09-[address] [facility] [id number] Univers 00:06:17 ity of [facility] 2021-09-[address] [facility] [id number] Univers 23:33:58 ity of [facility] 2021-09-[address] [facility] [id number] Univers 22:11:08 ity of [facility] 2021-09-[address] [facility] [id number] Univers 20:54:06 ity of [facility] 2021-03-20 Inpatient HCAPM JOSE ROBERTO [id number] [facility] 10:[facility]:[id number] [facility] 2021-01-10 Inpatient HCAWU JOSE ROBERTO [id number] [facility] 20:22:00 [id number] [facility] 2021-06-18 2021-06-18 Orders Doctor KELLY 1.2.840.114 [id number] Univers 00:00:00 00:00:00 Only Unassigned, ARMAND [id number] ity of [place] [facility] 4.2.7.2.686 Juan as [phone] [place] [id number] Branch 2021-05-31 2021-05-31 Emergency E STEFFI NYen [facility] [id number] 11:46:00 20:16:00 DELORIS 2021-03-20 2021-03-20 Outpatient NIDIA Villanueva [id number] [facility] 18:43:00 18:43:00 Safi [id number] [facility] 2021-01-03 2021-01-03 Patient Anne Fuentes 1.2.840.114 [id number] Univers 00:00:00 00:00:00 Outreach Mercedez Narayanan [id number] ity [place] [place] [id number] [facility] 403 Branch 2020-11-26 2020-11-26 Outpatient [facility] [id number] Univers 09:00:00 09:00:00 ORPHEUS [id number] ity [facility] 2020-11-26 2020-11-26 Outpatient [facility] [id number] Univers 09:00:00 09:00:00 ORPHEUS ity [facility] 2020-11-26 2020-11-26 Telephone Darren Clark [facility] 1.2.840.114 [id number] Univers 00:00:00 00:00:00 Health [id number] [place] - [phone] [facility] 408 Branch 2020-11-22 2020-11-22 Outpatient [facility] [id number] Univers 15:30:00 15:30:00 ORPHEUS [id number] ity [facility] 2020-11-22 2020-11-22 Outpatient [facility] [id number] Univers 15:30:00 15:30:00 ORPHEUS ity [facility] 2020-11-20 2020-11-20 Orders Doctor KELLY 1.2.840.114 [id number] Univers 00:00:00 00:00:00 Only Unassigned, ARMAND 350.1.13.10 [facility] of [place] [facility] 4.2.7.2.[id number] [facility] 009 Branch 2020-11-19 2020-11-19 Outpatient R [facility] [id number] Univers 11:15:00 11:15:00 MEHRDAD [id number] ity [facility] 2020-11-19 2020-11-19 Outpatient R [facility] [id number] Univers 11:15:00 11:15:00 ORPHEUS ity [facility] 2020-11-12 2020-11-12 Patient Deepika Ramirez Anne 1.2.840.114 [id number] Univers 00:00:00 00:00:00 Outreach E Narayanan 350.1.13.10 [id number] [address] 2020-11-11 2020-11-11 Telephone [facility] 1.2.840.114 [id number] Univers 00:00:00 00:00:00 Mehrdad [facility] [id number] [place] - [phone] Med ical [address] 2020-11-05 2020-11-05 Telephone Darren Clark [facility] 1.2.840.114 [id number] Univers 00:00:00 00:00:00 SPECIALTY [id number] [place] [phone] Az dic[address] 2020-11-01 2020-11-01 Patient Deepika Ramirez Anne 1.2.840.114 [id number] Univers 00:00:00 00:00:00 Outreach E Narayanan 350.1.13.10 [place] [id number] [address] 2020-10-31 2020-10-31 Transition Anne Damon 1.2.840.114 [id number] 00:00:00 00:00:00 of Care Lyndavictoria Narayanan 350.1.13.10 [place] [id number] [facility] 2020-10-31 2020-10-31 Transition Anne Damon 1.2.840.114 [id number] Univers 00:00:00 00:00:00 of Care Lynda Narayanan 350.1.13.10 [place] [phone] [address] 2020-10-24 2020-10-30 [facility] 1.2.840.114 [id number] 13:38:00 19:38:00 Encounter [place] 350.1.13.10 Hospital 4.2.7.2.686 [id number] [facility] 2020-10-24 2020-10-30 [facility] 1.2.840.114 [id number] [facility] 13:38:00 19:38:00 Encounter [place] 350.1.13.10 ity of Hospital 4.2.7.2.686 Juan as [id number] [address] 2020-10-21 2020-10-21 Transition Anne Damon 1.2.840.114 [id number] 00:00:00 00:00:00 of Care Lynda Narayanan 350.1.13.10 [place] 4.2.7.2.686 [id number] [facility] 2020-10-21 2020-10-21 Transition Anne Damon 1.2.840.114 [id number] [facility] 00:00:00 00:00:00 of Care Lynda Narayanan 350.1.13.10 [place] [id number] [address] 2020-10-14 2020-10-19 [facility] 1.2.840.114 [id number] 05:48:00 15:50:00 Encounter [place] 350.1.13.10 Hospital 4.2.7.2.686 [id number] [facility] 2020-10-14 2020-10-19 [facility] 1.2.840.114 [id number] [facility] 05:48:00 15:50:00 Encounter [place] 350.1.13.10 ity of Hospital 4.2.7.2.686 [place] as [phone] [address] 2020-10-16 2020-10-16 Patient Deepika Ramirez 1.2.840.114 [id number] 00:00:00 00:00:00 Outreach E Narayanan 350.1.13.10 [place] 4.2.7.2.686 [id number] 403 2020-10-16 2020-10-16 Patient Deepika Ramirez 1.2.840.114 [id number] Univers 00:00:00 00:00:00 Outreach E Narayanan 350.1.13.10 i ty [place] [place] [id number] [facility] 403 Mobile 2020-10-14 2020-10-14 Orders Doctor LETICIA 1.2.840.114 [id number] 00:00:00 00:00:00 Only Unassigned, [place] 350.1.13.10 [place] [facility] 4.2.7.2.686 [id number] [facility] 2020-10-14 2020-10-14 Orders Doctor LETICIA 1.2.840.114 [id number] Univers 00:00:00 00:00:00 Only Unassigned, ARMAND 350.1.13.10 [facility] of [place] [facility] 4.2.7.2.686 Juan as [id number] [address] 2020 2020 Laboratory Only, [facility] 1.2.840.114 [id number] 14:56:46 15:11:46 Only Test [place] 350.1.13.10 [place] 4.2.7.2.686 [place] [id number] [facility] 2020 2020 Laboratory Only, Adc Test [facility] 1.2.840. 114 [id number] Univers 14:56:46 15:11:46 Only Darren Clark [place] 350.1.13.10 it[place] [id number] [address] 2020 [address] [facility] [id number] Univers 14:45:00 14:45:00 [id number] ity of [facility] 2020 2020 Outpatient R [facility] [id number] Univers 14:45:00 14:45:00 ity of [facility] 2020-10-07 2020-10-07 Patient Deepika Ramirez 1.2.840.114 [id number] 00:00:00 00:00:00 Outreach E Narayanan 350.1.13.10 [place] 4.2.7.2.686 [id number] [facility] 2020-10-07 2020-10-07 Patient Deepika Ramirez 1.2.840.114 [id number] Univers 00:00:00 00:00:00 Outreach E Narayanan 350.1.13.10 [place] [id number] [address] 2020-10-01 2020-10-02 Emergency [facility] 1.2.840.114 [id number] Univers 23:00:00 01:14:00 Ebony Abernathy 350.1.13.10 ity [place] [id number] [facility] 084 Mobile 2020-10-01 2020-10-01 Transition Sabi Damonmamie 1.2.840.114 [id number] Univers 00:00:00 00:00:00 of Care Lynda Narayanan 350.1.13.10 [place] [id number] [address] 2020-09-30 2020-09-30 Telephone Kalee [facility] 1.2.840.114 [id number] Univers 00:00:00 00:00:00 Health 350.1.13.10 it [place] - [phone] Med ical MDA [address] 2020-09-27 2020-09-27 Office Kalee [facility] 1.2.840.114 [id number] Univers 09:20:41 09:35:41 Visit Health 350.1.13.10 [place] - [phone] Med ical MDA [address] 2020-09-27 2020-09-27 Outpatient R KALEE [facility] [id number] Univers 09:30:00 09:30:00 [id number] ity of [facility] 2020-09-27 2020-09-27 Outpatient R KALEE [facility] [id number] Univers 09:30:00 09:30:00 ity of [facility] 2020-09-24 2020-09-24 Telephone Kalee [facility] 1.2.840.114 [id number] Univers 00:00:00 00:00:00 Health 350.1.13.10 it [place] - [phone] [facility] 408 Branch 2020-09-19 2020-09-19 Transition Anne Damon 1.2.840.114 [id number] Univers 00:00:00 00:00:00 of Care Lynda Narayanan 350.1.13.10 ity of [place] 4[place]2.7.2.[id number] [facility] 403 Branch 2020-09-19 2020-09-19 Patient JamesDeepika Anne 1.2.840.114 [id number] Univers 00:00:00 00:00:00 Outreach E Narayanan 350.1.13.10 i ty [place] 4[place]7.2.[id number] [facility] 403 Branch 2020-09-13 2020-09-18 [facility] 1.2.840.1 [id number] Univers 10:29:00 17:07:00 Encounter Roby Jean 350.1.13.10 ity of [place] [id number] [facility] 081 Branch 2020-09-17 2020-09-17 Patient James Deepika Rodríguez 1.2.840.114 [id number] Univers 00:00:00 00:00:00 Outreach E Narayanan 350.1.13.10 i ty of [place] 4[place]2.7.2.[id number] [facility] 403 Branch 2020-09-16 2020-09-16 Patient James Deepika Rodríguez 1.2.840.114 [id number] Univers 00:00:00 00:00:00 Outreach E Narayanan 350.1.13.10 [place] [id number] [address] 2020-09-16 2020-09-16 Patient Anne Fuentes 1.2.840.114 [id number] Univers 00:00:00 00:00:00 Outreach Mercedez Barlow Narayanan 350.1.13.10 [place] [id number] [address] 2020-09-13 2020-09-13 Patient Deepika Ramirezmamie 1.2.840.114 [id number] Univers 00:00:00 00:00:00 Outreach E Narayanan 350.1.13.10 i [place] [id number] [address] 2020-09-12 2020-09-12 Transition Anne Damon 1.2.840.114 [id number] Univers 00:00:00 00:00:00 of Care Lynda Narayanan 350.1.13.10 [place] [id number] [address] 2020-09-12 2020-09-12 Patient Deepika Ramirezmamie 1.2.840.114 [id number] Univers 00:00:00 00:00:00 Outreach E Narayanan 350.1.13.10 i ty [place] [id number] [address] 2020-09-12 2020-09-12 Patient Deepika Ramirez Anne 1.2.840.114 [id number] Univers 00:00:00 00:00:00 Outreach E Narayanan 350.1.13.10 i [place] [id number] [address] 2020-09-12 2020-09-12 Patient Sabi Fuentesmamie 1.2.840.114 [id number] Univers 00:00:00 00:00:00 Outreach Mercedez Barlow Narayanan 350.1.13.10 ity of [place] 4.2.7.2.686 [facility] [id number] [facility] 403 Branch 2020-09-12 2020-09-12 Telephone [facility] 1.2.840.114 [id number] Univers 00:00:00 00:00:00 [place] SPECIALTY 350.1.13.10 ity of CARE 4.2.7.2.686 [facility] CENTER AT [id number] Az maximus LARA 072 [facility] 2020-09-06 2020-09-06 [id number] Univers 11:00:00 11:00:00 [id number] ity of [facility] 2020-09-06 2020-09-06 [facility] [id number] Univers 11:00:00 11:00:00 ity of [facility] 2020-09-03 2020-09-03 Outpatient R [facility] [id number] Univers 11:00:00 11:00:00 ity of [facility] 2020-09-03 2020-09-03 Outpatient R [facility] [id number] Univers 11:00:00 11:00:00 ity of [facility] 2020-09-01 2020-09-01 Emergency [facility] [id number] Univers 01:42:00 07:20:00 Shayla Martínez SarkarLund 350.1.13.10 ity of [place] 4.2.7.2.686 [facility] [id number] [facility] 084 Branch 2020-08-29 2020-08-29 Telephone [facility] 1.2.840.114 [id number] Univers 00:00:00 00:00:00 [facility]ad [facility] 350.1.13.10 ity of Cancer 4.2.7.2.686 [facility] [place] - [id number] Med ical MDA 188 Branch 2020-08-28 2020-08-28 Telephone [facility] 1.2.840.114 [id number] Univers 00:00:00 00:00:00 Health [id number] it y of Cancer [id number] [facility] - [phone] [facility] [address] 2020-08-23 2020-08-23 Emergency [place], [facility] [id number] Univers 17:35:00 22:19:00 Matthias Romero Michela [id number] i ty of [place] [id number] [facility] [phone] [facility] 084 Branch 2020-08-20 2020-08-20 Deepika Anthony [facility] [id number] Univers 11:14:50 12:08:13 Visit PersonDaquan HEALTH 350.1.13.10 ity of CLINICS 4.2.7.2.686 [facility] [id number] [facility] [address] 2020-08-20 2020-08-20 Outpatient R [facility] [id number] -[id number] Univers 11:00:00 11:00:00 ity of [facility] 2020-08-20 2020-08-20 Outpatient R [facility] [id number] Univers 11:00:00 11:00:00 ity of [facility] 2020-08-20 2020-08-20 Telephone [facility] 1.2.840.114 [id number] Univers 00:00:00 00:00:00 Health 350.1.13.10 it y of Cancer 4.2.7.2.686 [facility] s [place] - [phone] [facility] [address] 2020-08-17 2020-08-18 [facility] 1.2.181.862 [id number] Univers 19:34:00 00:56:00 Shayla Martínez Abernathy 350.1.13.10 ity of [place] 4.2.7.2.686 [facility] [phone] [place] [address] Branch 2020-08-09 2020-08-09 Office [facility] 1.2.840.114 [id number] Univers 10:32:05 10:47:05 Visit Health 350.1.13.10 it y of Cancer 4.2.7.2.686 [facility] - [phone] Med [facility] [address] 2020-08-09 2020-08-09 Outpatient R PHATAK, [facility] [id number] Univers 10:45:00 10:45:00 ity of [facility] 2020-08-09 2020-08-09 Orders Doctor LETICIA 1.2.840.114 [id number] Univers 00:00:00 00:00:00 Only Unassigned, ARMAND 350.1.13.10 ity of [place] [facility] 4.2.7.2.[address] Juan [phone] [facility] 009 Mobile 2020-08-05 2020-08-05 Telephone K[facility]e [facility] 1.2.840.114 [id number] Univers 00:00:00 00:00:00 Health 350.1.13.10 it [place].2.686 [place] [phone] Med ical [facility] 408 [address] 2020-08-02 2020-08-02 Transition RamirezSabimamie 1.2.840.114 [id number] Univers 00:00:00 00:00:00 of Care Destinee Narayanan 350.1.13.10 i ty of [place]2.7.2.[address] [place] [phone] [facility] [address] 2020-07-23 2020-08-01 Hospital Mercedez Canela 1.2.840 .114 [id number] Univers 11:58:00 17:47:00 Encounter Shayla Munozy 350.1.13.10 ity of [place] Zepeda [facility] 4.2.7.2.686 [facility] [phone] Medical 091 Branch 2020-07-23 2020-07-23 Emergency [facility] ERT [id number] Univers 11:58:00 11:58:00 MERCEDEZ scott of [facility] 2020-07-23 2020-07-23 Orders Doctor KELLY 1.2.840.114 [id number] Univers 00:00:00 00:00:00 Only Unassigned, ARMAND 350.1.13.10 ity of [place] H[facility] 4.2.7.2.[phone] [facility] 009 [address] 2019-12-09 2019-12-09 Emergency E MHSE MHSE 7503 MH 09:16:00 09:16:00 Llia davis [facility] 2019-06-15 2019-06-15 Emergency DANIEL Dukes 1.2.840.114 [id number] [facility] 11:46:39 15:08:00 Mary Jo Abernathy [facility].13.10 [facility] 4.2.7.2.686 [facility] [phone] [facility] 084 Branch Results Test Description Test Time Test Comments Results Result [facility] e Comments - CT ABD PELVIS 2021-03-20 W/CONT 13:55:00 [facility] 1975 Sex: F Name: EDEN CHAKRABORTY [facility] : 1975 Age/S: 45 / F [address] Unit #: [id number] Loc: [place] [address] Phys: Lemuel Villanueva DO Acct: [id number] Dis Date: Status: REG ER PHONE #: [phone] Exam Date: 03/20/2021 1335 FAX #: Reason: epigastric pain, h/o Crohn's, SBO EXAMS: CPT: [id number] CT ABD PELVIS W/CONT 92883 Site ID: [id number] CLINICAL HISTORY: Epigastric abdominal [...] joint arthritis. IMPRESSION: No acute findings at 0012 Reported and signed by: Kang Bates M.D. PAGE 1 Signed Report (CONTINUED) Name: EDEN CHAKRABORTY [facility] : 1975 Age/S: 45 / F [address] Unit #: [id number] Loc: [place] [address] Phys: Lemuel Villanueva DO Acct: [id number] Dis Date: Status: REG ER PHONE #: [phone] Exam Date: 03/20/2021 1335 FAX #: Reason: epigastric pain, h/o Crohn's, SBO EXAMS: CPT: [id number] CT ABD PELVIS W/CONT 55741 <Continued> CC: Lemuel Villanueva DO Technologist:Miryam Anthony, RT(R)(CT) CTDI: DLP: Trnscb Date/Time: 03/20/2021 (9031) [email or web address] Orig Print D/T: S: 03/20/2021 (9305) PAGE 2 Signed Report - XR RIBS UNI 2021-03-20 W/CXR 3+V LT 13:47:00 [facility] : 1975 Sex: F Name: EDEN CHAKRABORTY : 1975 Age/S: 45 / F [id number] [place] [address] Unit #: [id number] Loc: [place] [id number] Phys: Lemuel Villanueva DO Acct: [id number] Dis Date: Status: REG ER PHONE #: [phone] Exam Date: 03/20/2021 1231 FAX #: Reason: left rib pain EXAMS: CPT: [id number] XR RIBS UNI W/CXR 3+[place] [address] Fluoro Time: DAP (Gy m2): Air Kerma [...] CHAKRABORTY : 1975 Age/S: 45 / F [address] [place] [address] Unit #: [id number] Loc: [place] [address] Phys: Lemuel Villanueva DO Acct: [id number] Dis Date: Status: REG ER PHONE #: [phone] Exam Date: 03/20/2021 1231 FAX #: Reason: left rib pain EXAMS: CPT: [id number] XR RIBS UNI W/CXR 3+[place] [address] Fluoro Time: DAP (Gy m2): Air Kerma (mGy): <Continued> Technologist: Cady Pendleton, RT(R)(MR) Trnscb Date/Time: 03/20/2021 (1347) [email or web address] Orig Print D/T: S: 03/20/2021 (2521) PAGE 2 Signed Report HCG SERUM 2021-03-20 12:51:00 Test Item Value Reference Range Interpretation Comme nts HCG SERUM (test code = HCG) < 1 mi-IU/ML 0-6 N 0 - 6 NOT > 6 SUGGESTIVE OF EARLY RISES TWO FOLD EVERY 2 DAYS; SUGGEST REC ONFIRMING AFTER 2 D AYS. 150,000-200,[address] TRIMESTER 10,000 - 50,000 2ND & 3RD TRIME STER BASIC METABOLIC [id number] 12:49:00 Test Item Value Reference Range Interpretation [...] 8.5-10.1 N Completed by Nursing: LETICIAHEPATIC FUNCTION [id number] 12:49:00 Test Item Value Reference Range Interpretation [...] N code = ALKP) Completed by Nursing: [id number] 12:49:00 Test Item Value Reference Range Interpretation Comments LIPASE (test code = LIP) 77 Unit/L 114-286 L Completed by Nursing: SXEFALHUXG-[id number] 12:49:00 Test Item Value Reference Range Interpretation [...] tarun yby method. Completed by Nursing: NOPROTHROMBIN [id number] 12:25:00 Test Item Value Reference Range Interpretation Comments PT PATIENT (test code = PTP) 10.7 SECONDS 9.3-12.9 N INTERNATIONAL NORMAL RATIO 0.96 INR Unit 0.8-1.2 N (test code = INR) CBC W/AUTO [id number] 12:23:00 Test Item Value Reference Range Interpretation [...] = MDIFF) UA RFLX MICR CULT IF [id number] 12:18:00 Test Item Value Reference Range Interpretation [...] URINE: CLEAN CATCHUA RFLX MICR CULT IF [id number] 12:18:00 Test Item Value Reference Range Interpretation [...] RiskForSepsis-no oth srcSOURCE OF URINE: CLEAN CATCHLACTIC [id number] 11:59:00 Test Item Value Reference Range Interpretation Comments LACTIC ACID (test code = LACT) 1.3 mmol/L 0.4-2.0 N - XR KNEE 3 V [id number] 21:05:00 [facility] : 1975 Sex: F Patient Name: EDEN CHAKRABORTY Unit No: [id number] EXAMS: CPT CODE: [id number] XR KNEE 3 V RT 26899 Location: H3 Right knee x-ray exam: 3 views, 01/10/21 CLINICAL HISTORY: Atraumatic knee pain. Comparison exam: None of the knee Knee joint is fairly well- maintained. No erosion identified. No abnormal joint effusion. No abnormal calcific deposition. The overlying soft tissues appear unremarkable. IMPRESSION: Fairly unremarkable exam at 2104 Reported and signed by: Karina Huff [facility]: Timur Middleton MD; Karissa AWAD Technologist: Daquan Armas (RT) Transcrpt Date/Tm/Trnsp: 01/10/2021 (2104) t.[email or web address] Orig Print D/T: S: 01/10/2021 (2107) [facility] NAME: EDEN CHAKRABORTY [address] PHYS: [place] [address] : 1975 AGE: 45 SEX: F LOC: ZDakshaERS PHONE #: [phone] EXAM DATE: 01/10/2021 STATUS: REG ER FAX #: [phone] RADIOLOGY NO: [id number] PAGE 1 Signed ReportCBC WITH [id number] 13:24:00 Test Item Value Reference Range Interpretation Comments WBC (test code = See_Comment [Automated 8490-2) message] The sy stem which generated this result transmitted reference range : 4.30 - 11.10 10*3/?L. The reference range was not used to interpret this result as normal/abnormal . RBC (test code = See_Comment L [Automated 569-8) message] The sy stem which generated this [...] (test code = 51.6 fL 39-49.9 H 23542-9) RDW-CV (test code = 14.3 % 12-15.5 788-0) PLT (test code = See_Comment H [Automated 777-3) message] The sy stem which generated this result transmitted reference range : 166 - 358 10*3/ ?L. The reference r madelin was not used to interpret this result as normal/abnormal . MPV (test code = 8.9 fL 9.5-12.9 L 75046-2) NRBC/100 WBC (test See_Comment [Automat ed code = 8604544931) message] The system which generated this result transmitted reference range : 0.0 - 10.0 /100 WBCs. The refer ence range was not u sed to interpret th is result as normal/abnormal . NRBC x10^3 (test code <0.01 See_Comment [Auto mated = 0772377652) message] The s ystem which generated this result transmitted reference range : 10*3/?L. The reference range was not used to interpret this result as normal/abnormal . GRAN MAT (NEUT) % 43.5 % (test code = 770-8) IMM GRAN % (test code 0.50 % = 4989725056) LYMPH % (test code = 36.9 % 736-9) MONO % (test code = 11.5 % 5905-5) EOS % (test code = 6.5 % 713-8) BASO % (test code = 1.1 % 706-2) GRAN MAT x10^3(ANC) 2.80 10*3/uL 1.88-7.09 (test code = 9513839992) IMM GRAN x10^3 (test 0.03 10*3/uL 0-0.06 code = 3476005159) LYMPH x10^3 (test code 2.37 10*3/uL 1.32-3.29 = 731-0) MONO x10^3 (test code 0.74 10*3/uL 0.33-0.92 = 742-7) EOS x10^3 (test code = 0.42 10*3/uL 0.03-0.39 H 711-2) BASO x10^3 (test code 0.07 10*3/uL 0.01-0.07 = 704-7) Lab Interpretation Abnormal (test code = 02700-4) [facility] Metabolic Panel (NA, K, CL, CO2, GLUCOSE, BUN, CREATININE, CA)2020-10-29 10:07:00 Test Item Value Reference Range Interpretation Comments NA (test code = 133 mmol/L 135-145 L 3095528167) K (test code = 4.3 mmol/L 3.5-5 0862908822) CL (test code = 102 mmol/L 98-108 9514982573) CO2 TOTAL (test code = 28 mmol/L 23-31 8105684625) AGAP (test code = 2-16 0024377474) BUN (test code = 3 mg/dL 7-23 L 1713859697) GLUCOSE (test code = 103 mg/dL 70-110 4222899152) CREATININE (test code = 0.62 mg/dL 0.5-1.04 5107871037) CALCIUM (test code = 8.4 mg/dL 8.6-10.6 L 8248415988) eGFR Calculation mL/min/1.73m2 (Non-) (test code = 3873813371) eGFR Calculation mL/min/1.73m2 () (test code = 5312085691) RAUDEL (test code = RAUDEL) Association of [...] tests). Lab Interpretation Abnormal (test code = 41866-9) [facility] [id number] 10:07:00 Test Item Value Reference Range Interpretation Comments MAGNESIUM (test code = 5542954258) 1.5 mg/dL 1.7-2.4 L Lab Interpretation (test code = Abnormal 08927-9) [facility] [id number] 13:44:00 Test Item Value Reference Range Interpretation Comments URINE CULTURE (test < 10,000 CFU/mL mixed code = 630-4) aerobic organisms - suggests endogenous microbial contamination [facility]lands[facility]osph[facility] [id number] 10:45:00 Test Item Value Reference Range Interpretation Comments PHOSPHORUS (test code = 5000761850) 3.4 mg/dL 2.5-5 Lab Interpretation (test code = Normal 87565-6) [facility] Met[facility] (NA, K, CL, CO2, GLUCOSE, BUN, CREATININE, CA)2020-10-28 10:45:00 Test Item Value Reference Range Interpretation Comments NA (test code = 135 mmol/L 135-145 8000264463) K (test code = 4.0 mmol/L 3.5-5 4948732670) CL (test code = 101 mmol/L 98-108 6329764807) CO2 TOTAL (test code = 31 mmol/L 23-31 4808237222) AGAP (test code = 2-16 3358005982) BUN (test code = 4 mg/dL 7-23 L 5517725248) GLUCOSE (test code = 100 mg/dL 70-110 2552660378) CREATININE (test code = 0.70 mg/dL 0.5-1.04 7700468279) CALCIUM (test code = 8.3 mg/dL 8.6-10.6 L 7123202447) eGFR Calculation mL/min/1.73m2 (Non-) (test code = 8560470255) eGFR Calculation mL/min/1.73m2 () (test code = 7493090869) RAUDEL (test code = RAUDEL) Association of [...] tests). Lab Interpretation Abnormal (test code = 70884-1) [facility] [id number] 10:45:00 Test Item Value Reference Range Interpretation Comments MAGNESIUM (test code = 4707280826) 1.8 mg/dL 1.7-2.4 Lab Interpretation (test code = Normal 56585-8) [facility] WITH [id number] 10:13:00 Test Item Value Reference Range Interpretation [...] RDW-SD (test code = 48.4 fL 39-49.9 81237-7) RDW-CV (test code = 13.8 % 12-15.5 788-0) PLT (test code = See_Comment H [Automated 777-3) message] The sy stem which generated this result transmitted reference range : 166 - 358 10*3/ ?L. The reference r madelin was not used to interpret this result as normal/abnormal . MPV (test code = 9.1 fL 9.5-12.9 L 55731-7) NRBC/100 WBC (test See_Comment [Automat ed code = 1196519456) message] The system which generated this result transmitted reference range : 0.0 - 10.0 /100 WBCs. The refer ence range was not u sed to interpret th is result as normal/abnormal . NRBC x10^3 (test code <0.01 See_Comment [Auto mated = 5864180017) message] The s ystem which generated this result transmitted reference range : 10*3/?L. The reference range was not used to interpret this result as normal/abnormal . GRAN MAT (NEUT) % 55.3 % (test code = 770-8) IMM GRAN % (test code 0.40 % = 7825117711) LYMPH % (test code = 29.4 % 736-9) MONO % (test code = 9.4 % 5905-5) EOS % (test code = 5.1 % 713-8) BASO % (test code = 0.4 % 706-2) GRAN MAT x10^3(ANC) 3.83 10*3/uL 1.88-7.09 (test code = 4049437006) IMM GRAN x10^3 (test 0.03 10*3/uL 0-0.06 code = 9017064660) LYMPH x10^3 (test code 2.04 10*3/uL 1.32-3.29 = 731-0) MONO x10^3 (test code 0.65 10*3/uL 0.33-0.92 = 742-7) EOS x10^3 (test code = 0.35 10*3/uL 0.03-0.39 711-2) BASO x10^3 (test code 0.03 10*3/uL 0.01-0.07 = 704-7) Lab Interpretation Abnormal (test code = 36399-5) [facility] [id number] 07:50:00 Test Item Value Reference Range Interpretation Comments MAGNESIUM (test code = 8169376032) 1.1 mg/dL 1.7-2.4 L Lab Interpretation (test code = Abnormal 25160-4) [facility]2020-12-13 07:50:00 Test Item Value Reference Range Interpretation Comments APPEARANCE (test code = Hazy Clear A 0196576690) COLOR (test code = Yellow Yellow 1169889100) PH (test code = 4.8-8.0 0311393688) SP GRAVITY (test code = 1.003-1.030 2825439680) GLU U QUAL (test code = Normal Normal 8963179641) BLOOD (test code = Negative Negative 2606078940) KETONES (test code = Negative Negative 0172642153) PROTEIN (test code = Negative Negative 2887-8) UROBILIN (test code = Normal Normal 0823936563) BILIRUBIN (test code = Negative Negative 4705012702) NITRITE (test code = Negative Negative 2635386612) LEUK CHELY (test code = 25/uL Negative A 9193986155) RBC/HPF (test code = See_Comment [Autom ated message] 3222883617) The system [employer] generated this result transmitted ref erence range: 0 - 3 HP F. The reference range was not used to int erpret this result as normal/abnormal . WBC/HPF (test code = See_Comment [Autom ated message] 0427828079) The system [employer] generated this result transmitted ref erence range: 0 - 5 HP F. The reference range was not used to int erpret this result as normal/abnormal . BACTERIA (test code = Negative Negative 3372091979) MUCOUS (test code = Slight Negative LPF A 1943025632) SQ EPITH (test code = See_Comment [Auto mated message] 1824685847) The system [employer] generated this result transmitted ref erence range: <=2 HPF. The reference range was not used to int erpret this result as normal/abnormal . Lab Interpretation (test Abnormal code = 51301-3) [facility] (NA, K, CL, CO2, GLUCOSE, BUN, CREATININE, CA)2020-10-27 07:45:00 Test Item Value Reference Range Interpretation Comments NA (test code = 135 mmol/L 135-145 2220479291) K (test code = 3.2 mmol/L 3.5-5 L 8653937751) CL (test code = 99 mmol/L 98-108 4769948310) CO2 TOTAL (test code = 35 mmol/L 23-31 H 7670854196) AGAP (test code = 2-16 L 1185570989) BUN (test code = 3 mg/dL 7-23 L 2146105758) GLUCOSE (test code = 104 mg/dL 70-110 2707513254) CREATININE (test code = 0.66 mg/dL 0.5-1.04 8945040603) CALCIUM (test code = 7.5 mg/dL 8.6-10.6 L 7013489362) eGFR Calculation mL/min/1.73m2 (Non-) (test code = 4768283296) eGFR Calculation mL/min/1.73m2 () (test code = 9530665842) RAUDEL (test code = RAUDEL) Association of [...] tests). Lab Interpretation Abnormal (test code = 67564-0) [facility] with Jdwntikzzvig8804-61-70 07:24:00 Test Item Value Reference Range Interpretation Comments WBC (test code = See_Comment [Automated 3600-2) message] The sy stem which generated this [...] RDW-SD (test code = 46.6 fL 39-49.9 92271-9) RDW-CV (test code = 13.7 % 12-15.5 788-0) PLT (test code = See_Comment H [Automated 777-3) message] The sy stem which generated this result transmitted reference range : 166 - 358 10*3/ ?L. The reference r madelin was not used to interpret this result as normal/abnormal . MPV (test code = 9.1 fL 9.5-12.9 L 47987-3) NRBC/100 WBC (test See_Comment [Automat ed code = 4879671381) message] The system which generated this result transmitted reference range : 0.0 - 10.0 /100 WBCs. The refer ence range was not u sed to interpret th is result as normal/abnormal . NRBC x10^3 (test code <0.01 See_Comment [Auto mated = 9401237773) message] The s ystem which generated this result transmitted reference range : 10*3/?L. The reference range was not used to interpret this result as normal/abnormal . GRAN MAT (NEUT) % 52.0 % (test code = 770-8) IMM GRAN % (test code 0.50 % = 8270725780) LYMPH % (test code = 34.7 % 736-9) MONO % (test code = 8.6 % 5905-5) EOS % (test code = 3.7 % 713-8) BASO % (test code = 0.5 % 706-2) GRAN MAT x10^3(ANC) 3.19 10*3/uL 1.88-7.09 (test code = 5641715756) IMM GRAN x10^3 (test 0.03 10*3/uL 0-0.06 code = 9239673849) LYMPH x10^3 (test code 2.13 10*3/uL 1.32-3.29 = 731-0) MONO x10^3 (test code 0.53 10*3/uL 0.33-0.92 = 742-7) EOS x10^3 (test code = 0.23 10*3/uL 0.03-0.39 711-2) BASO x10^3 (test code 0.03 10*3/uL 0.01-0.07 = 704-7) Lab Interpretation Abnormal (test code = 27485-6) [facility] COVID HSMZBSWYFSXFAO0698-30-04 00:32:00COVID DMT InterpretationInterpretation/Recommendations: Molecular NAAT Tests for Active Infection with the SARS-CoV-2 Virus: This patient has a history of testing negative on multiple occasions for tdzGKCU-IdW-3 virus that causes COVID-19 illness, with no [...] upon aggregate COVID-19 test results pooled from [facility]. They apply to the following tests offered at [facility] and assume the acceptable specimen type(s) were used: A. Tests for the Identification of SARS-CoV-2 RNA (Molecular NAAT Tests): ?- SARS-CoV-2 PCR assays including ZeroVM Aptima, ZeroVM Fusion, Villarreal RealTime, and [employer] Xpert Xpress. ?- SARS-CoV-2 Rapid IDNOW by the ID NOW assay. ? B. Tests for the Identification of SARS-CoV-2 Antibodies: ?- Chemi luminescent immunoassays including CoderBuddy SARS-CoV-2 IgM (DXI 600), CivicSolarS Bryf-JGIQ-FsU-2 IgG (Vitros 5600 and Vitros 3600), and Villarreal SARS-CoV-2 IgG (HYDROELECTRIC POWERPLANT SUPERVISOR I System). These interpretations are autopopulated into [facility] based on computerized algorithms matching an interpretation code to the patient's set of test results, and a clinical pathologist evaluates the comments for accuracy. However, these comments do not consider testing a patient may have had outside of the [facility] system. If results for COVID-19 [...] lavage fluid (BAL), tracheal aspirate, etc.). ? [facility] LABORATORY SERVICESCOVID IburmxePBVZ-EoW-8 Rapid ID NOW (no units) ? ? Date ? Value ? 10/24/2020 ? Not Detected ? ? ? 2020 ? Not Detected ? ? ? 09/25/2020 ? Not Detected ? ? ? 09/10/2020 ? Not Detected ? ? ? 09/04/2020 ? Not Detected ? ? ? 08/17/2020 ? Not Detected ? ? ? 07/23/2020 ? Not Detected ? [facility]AT[facility] SERVICESTex[facility] CBC with Wuuklnnsambr0951-41-17 11:58:00 Test Item Value Reference Range Interpretation [...] RDW-SD (test code = 47.2 fL 39-49.9 33882-7) RDW-CV (test code = 14.5 % 12-15.5 788-0) PLT (test code = See_Comment H [Automated 777-3) message] The sy stem which generated this result transmitted reference range : 166 - 358 10*3/ ?L. The reference r madelin was not used to interpret this result as normal/abnormal . MPV (test code = 10.1 fL 9.5-12.9 27192-4) NRBC/100 WBC (test See_Comment [Automat ed code = 5882257518) message] The system which generated this result transmitted reference range : 0.0 - 10.0 /100 WBCs. The refer ence range was not u sed to interpret th is result as normal/abnormal . NRBC x10^3 (test code <0.01 See_Comment [Auto mated = 6180759359) message] The s ystem which generated this result transmitted reference range : 10*3/?L. The reference range was not used to interpret this result as normal/abnormal . GRAN MAT (NEUT) % 50.3 % (test code = 770-8) IMM GRAN % (test code 0.50 % = 3728316581) LYMPH % (test code = 36.9 % 736-9) MONO % (test code = 7.6 % 5905-5) EOS % (test code = 4.2 % 713-8) BASO % (test code = 0.5 % 706-2) GRAN MAT x10^3(ANC) 2.76 10*3/uL 1.88-7.09 (test code = 7158787972) IMM GRAN x10^3 (test 0.03 10*3/uL 0-0.06 code = 7180999255) LYMPH x10^3 (test code 2.03 10*3/uL 1.32-3.29 = 731-0) MONO x10^3 (test code 0.42 10*3/uL 0.33-0.92 = 742-7) EOS x10^3 (test code = 0.23 10*3/uL 0.03-0.39 711-2) BASO x10^3 (test code 0.03 10*3/uL 0.01-0.07 = 704-7) Lab Interpretation Abnormal (test code = 03265-0) [facility] Fvvma3649-25-74 04:43:00 Test Item Value Reference Range Interpretation Comments MAGNESIUM (test code = 5222183649) 1.0 mg/dL 1.7-2.4 L Lab Interpretation (test code = Abnormal 28750-1) [facility] Metabolic Panel (NA, K, CL, CO2, GLUCOSE, BUN, CREATININE, CA)2020-10-26 04:43:00 Test Item Value Reference Range Interpretation Comments NA (test code = 136 mmol/L 135-145 8255967469) K (test code = 2.8 mmol/L 3.5-5 LL 2047783868) CL (test code = 97 mmol/L 98-108 L 3564969771) CO2 TOTAL (test code = 35 mmol/L 23-31 H 0914479739) AGAP (test code = 2-16 2367678116) BUN (test code = 3 mg/dL 7-23 L 7317114453) GLUCOSE (test code = 116 mg/dL 70-110 H 5260786649) CREATININE (test code = 0.81 mg/dL 0.5-1.04 0581814475) CALCIUM (test code = 7.2 mg/dL 8.6-10.6 L 9199193705) eGFR Calculation mL/min/1.73m2 (Non-) (test code = 9316642730) eGFR Calculation mL/min/1.73m2 () (test code = 4537839906) RAUDEL (test code = RAUDEL) Association of [...] tests). Lab Interpretation Abnormal (test code = 58328-9) [facility] [id number] 04:35:00 Test Item Value Reference Range Interpretation Comments PHOSPHORUS (test code = 9264333826) 3.0 mg/dL 2.5-5 Lab Interpretation (test code = Normal 07297-1) [facility] with [id number] 04:11:00 Test Item Value Reference Range Interpretation [...] RDW-SD (test code = 45.6 fL 39-49.9 66291-1) RDW-CV (test code = 13.4 % 12-15.5 788-0) PLT (test code = See_Comment H [Automated 777-3) message] The sy stem which generated this result transmitted reference range : 166 - 358 10*3/ ?L. The reference r madelin was not used to interpret this result as normal/abnormal . MPV (test code = 9.2 fL 9.5-12.9 L 71632-9) NRBC/100 WBC (test See_Comment [Automat ed code = 1523813911) message] The system which generated this result transmitted reference range : 0.0 - 10.0 /100 WBCs. The refer ence range was not u sed to interpret th is result as normal/abnormal . NRBC x10^3 (test code <0.01 See_Comment [Auto mated = [id number]) message] The s ystem which generated this result transmitted reference range : 10*3/?L. The reference range was not used to interpret this result as normal/abnormal . GRAN MAT (NEUT) % 55.9 % (test code = 770-8) IMM GRAN % (test code 0.40 % = 2231010512) LYMPH % (test code = 31.9 % 736-9) MONO % (test code = 8.4 % 5905-5) EOS % (test code = 3.1 % 713-8) BASO % (test code = 0.3 % 706-2) GRAN MAT x10^3(ANC) 3.80 10*3/uL 1.88-7.09 (test code = 1304738294) IMM GRAN x10^3 (test 0.03 10*3/uL 0-0.06 code = 9168823730) LYMPH x10^3 (test code 2.17 10*3/uL 1.32-3.29 = 731-0) MONO x10^3 (test code 0.57 10*3/uL 0.33-0.92 = 742-7) EOS x10^3 (test code = 0.21 10*3/uL 0.03-0.39 711-2) BASO x10^3 (test code <0.03 0.01-0.07 = 704-7) Lab Interpretation Abnormal (test code = 44754-8) [facility]EL[facility] W [id number] 14:39:02 1. ?Postsurgical changes of recent ileostomy [...] TECHNIQUE AND FINDINGS: [facility], labeled with the patients name, [...] AND FINDINGS: [facility] name, wassubmitted for [...] reviewed this study and agree with theabove report.[facility] COVID-19 (ID NOW RAPID TESTING)2020-10-25 01:48:00 Test Item Value Reference Range Interpretation Comments SARS-CoV-2 Rapid ID NOW Not Detected Not Detected (test code = 99931-9) RAUDEL (test code = RAUDEL) ID NOW COVID-19 Assay is an isothermal nucleic acid amplification test intended for the qualitative detection of nucleic acid from SARS-CoV-2 viral RNA in nasopharyngeal (MANAGER MORTGAGE) specimens. It is used under Emergency Use [...] acid from SARS-CoV-2 viral RNA in nasopharyngeal (MANAGER MORTGAGE) specimens. It is used under Emergency Use [...] indicated. Lab Interpretation Normal (test code = 24999-2) [facility] METABOLIC PANEL (NA, K, CL, CO2, GLUCOSE, BUN, CREATININE, CA)2020-10-24 23:16:00 Test Item Value Reference Range Interpretation Comments NA (test code = 137 mmol/L 135-145 9829609562) K (test code = 3.5 mmol/L 3.5-5 2765775763) CL (test code = 101 mmol/L 98-108 3077527359) CO2 TOTAL (test code = 31 mmol/L 23-31 9145713782) AGAP (test code = 2-16 4882033566) BUN (test code = 5 mg/dL 7-23 L 7165556259) GLUCOSE (test code = 80 mg/dL 70-110 7401757040) CREATININE (test code = 0.57 mg/dL 0.5-1.04 2411893525) CALCIUM (test code = 7.4 mg/dL 8.6-10.6 L 6128055947) eGFR Calculation mL/min/1.73m2 (Non-) (test code = 2184099736) eGFR Calculation mL/min/1.73m2 () (test code = 6415482783) RAUDEL (test code = RAUDEL) Association of [...] tests). Lab Interpretation Abnormal (test code = 77311-2) [facility] WITH [id number] 23:09:00 Test Item Value Reference Range Interpretation Comments WBC (test code = See_Comment [Automated 5190-2) message] The sy stem which generated this [...] RDW-SD (test code = 46.5 fL 39-49.9 26081-7) RDW-CV (test code = 13.4 % 12-15.5 788-0) PLT (test code = See_Comment H [Automated 777-3) message] The sy stem which generated this result transmitted reference range : 166 - 358 10*3/ ?L. The reference r madelin was not used to interpret this result as normal/abnormal . MPV (test code = 9.4 fL 9.5-12.9 L 68071-5) NRBC/100 WBC (test See_Comment [Automat ed code = 5895269187) message] The system which generated this result transmitted reference range : 0.0 - 10.0 /100 WBCs. The refer ence range was not u sed to interpret th is result as normal/abnormal . NRBC x10^3 (test code <0.01 See_Comment [Auto mated = 5261500897) message] The s ystem which generated this result transmitted reference range : 10*3/?L. The reference range was not used to interpret this result as normal/abnormal . GRAN MAT (NEUT) % 54.7 % (test code = 770-8) IMM GRAN % (test code 0.50 % = 4925440331) LYMPH % (test code = 35.9 % 736-9) MONO % (test code = 6.3 % 5905-5) EOS % (test code = 2.3 % 713-8) BASO % (test code = 0.3 % 706-2) GRAN MAT x10^3(ANC) 3.37 10*3/uL 1.88-7.09 (test code = 8625935421) IMM GRAN x10^3 (test 0.03 10*3/uL 0-0.06 code = 9630718016) LYMPH x10^3 (test code 2.21 10*3/uL 1.32-3.29 = 731-0) MONO x10^3 (test code 0.39 10*3/uL 0.33-0.92 = 742-7) EOS x10^3 (test code = 0.14 10*3/uL 0.03-0.39 711-2) BASO x10^3 (test code <0.03 0.01-0.07 = 704-7) Lab Interpretation Abnormal (test code = 37869-2) [facility]ID[facility] DIFFICILE [id number] 17:18:00 Test Item Value Reference Range Interpretation Comments Clostridioides (Clostridium) Negative Negative difficile (test code = 59891-4) Lab Interpretation (test code = Normal 58343-4) [facility] MET[facility]OLIC PANEL (NA, K, CL, CO2, GLUCOSE, BUN, CREATININE, CA)2020-10-17 23:42:00 Test Item Value Reference Range Interpretation Comments NA (test code = 135 mmol/L 135-145 0465715952) K (test code = 4.0 mmol/L 3.5-5 0965599864) CL (test code = 105 mmol/L 98-108 8388009257) CO2 TOTAL (test code = 22 mmol/L 23-31 L 7412698684) AGAP (test code = 2-16 2424983503) BUN (test code = 8 mg/dL 7-23 0242048809) GLUCOSE (test code = 127 mg/dL 70-110 H 8277609788) CREATININE (test code = 0.96 mg/dL 0.5-1.04 9862175843) CALCIUM (test code = 8.7 mg/dL 8.6-10.6 9874768653) eGFR Calculation mL/min/1.73m2 (Non-) (test code = 5657783901) eGFR Calculation mL/min/1.73m2 () (test code = 2278423179) RAUDEL (test code = RAUDEL) Association of [...] tests). Lab Interpretation Abnormal (test code = 11229-0) [facility] [id number] 19:12:00 Test Item Value Reference Range Interpretation Comments Case Report (test code Surgical Pathology ? ? = [id number]) ?Case: [id number] ? Authorizing Provider: ?Darren Clark MD ?Collected: ? 10/14/2020 0901 ?Ordering Location: ? ? [facility] OR ? Received: ?10/14/2020 1106 ? Department ? Pathologist: ? Simón, MD Marian ? Specimens: ? A) - STOMA, Ileostomy ? B) - COLON, Ileocolic anastamosis ? Final Diagnosis (test i4priRUdYOPhx7vrAZDlgU code = 4546529386) FuZzEwMzNcZnRuYmpcdWMx KVprnxNoRWdjy8XdN8KgQd AwMFxhbnNpXGRlZmxhbmcx XRSvJDW6vcNwLQDeXAmdAK PpUMaeIe3slNYntWisEqAc TYOci2scvqXCglfjsVx9o9 aeZTLzBsF1yYTwREysE1ih foYzgVYaEMNdECk7wT67VC EkcW5hcFXvPRfdevDcCkD2 FAyqBAHiChD4GQAniTSsBO QuA1keMOSzEMtbQYUcXQgq hJWyTNJ9cDmkd8I5yYJuiP FzbGqnTsAeKkYsVSWRy6Su RTt1vLjlY1FxDVFoUbS2lL QgUGFyYWdyYXBoIEZvbnQ7 iF25TAgzfaI6lMUsd4Nve0 2ze814aH9nwJGvKJY8CHWm NMFutDGqWSMnLNG1LLMlgH TnL9wjCQksVS6bsenoYKA9 MFxtYXJndDcyMFxtYXJnYj BpyQDlBDSqwZkyZLcxf098 XOQ5MvAsDJ3kT2Iea0N8eE 9maXRcZGVmdGFiNzIwXGZv kg3tgOScKFewj0RsDPI4bo S1nZBddRUqQYBkCQ40Srdq h3WuCibkAUW9KNSefrYtz9 Taa8uxAnTpznNlX3aeD1Od ZHJoZWFkXHBnYnJkcmZvb3 Kji0FllQCugMp9k4elLRDo QTUyvAvpl4qlJTG5QMHkJ2 Q6hSTul5vxTCusRJGteKW0 tqMiNRMwgIHcU2ZwfF3jNJ iuUU1lubu7a0xoYbRkVE3f kztcz3zwFBtvRXNfWHR9Rt ZcBIGkl6GzifoeWcBem1Wl gPEgGNccD65bl177IMRqvu FhH8ezyDHjjfefgYJsoaih YUhspqX5MVTfEHLrIQoyIL YxXGZzMjBcbGFuZzEwMzNc aGljaFxmMVxkYmNoXGYxXG cmS1ghKdLpGlSpHLxkSIRa NO5wM79FA15sFJrPQH3JMW 1ZNDPIJP8STYzmBAiKXLDL U955PMKhgfTfAAEmYT6tAv EWPVzGFCMNAR3wBQ0OCOxN BVSSBNUFI6SXKIQCNGYPLQ ZHJ9ASGBMUZPPLLcoQE5XZ N02iSL7QCVUWNiAVW7VnZJ OHB4eEOhzjbZSdGEViXWZr DFVpR63VB7kTXQVLJIRVNS OJEKfQLO9JFM8ZIHvwCNKo mLEmUWAzVYAFXK2EXJZSMG TMF73VEJOrWZ2BF9IUQE6N XPGeUUBDF5fPRR3NIeiaWO IgICAgICAtIEJFTklHTiBD Q6pQWaVYBjWeFKgDNFjnEM bCC8RCZNhCWXgtK41AX3HE ANGITVQJF1WUEFnkO40RS0 jTYQORWJCERRETECpXKT8T J7wEB9kpGBZvHKDdKDJmTM JEJkCAHT2LQ2TFI1wpZES1 j4cebCJtRMBueJJkPdYpZG QsNRLqj3fwQNNpvJMmBsAz MzNcZnRuYmpcdWMxXGRlZm Rsr5rxr669tBEpu8hkBQFu RpM6zYDrBRSdtYbmqqc2vI lpMaMzDBQol1uhseCaRgNf TSKnNOZcZVTwwUOcE754UX KjHQwqm1bej4KsJIPrrUZq e0U4VCVHIFcjRvNeB054p3 xgm7qjblKslJU6HDXrRNK8 UTkmpuYbkkL3PMpazAXdUh D5LDcrvwDsPQytxwDrjeTd Dau6RERfR065WZB9oEbxw1 xzZQO9ONFsQOLsHdnnTd8j kEHfI151MXBhJHNUYBHwoH s0SPQsmyXploXvwYYUr873 E199b3tbODDhucMekNiClr lhc4pjS314QAMooWTzjhWb PaZkYYVdfSMrkDM2WBTrTP 4fbcbgTZchVZopHSHzqeB7 YZCluMSiP0NlFGEdVH3aew jvGHH6XZdrSTXsWBJ8TvVy NBGwj2Kbslj0YuLmog0kdb 68ZZP3a4ZyiYgxKMW7UII6 RkUdHx2eeRCsBPOeWS6vUk NwdGLoAQTmyx58zEbpHQok svKpwC2xRuCpPIJliJOjPZ DmMN3fwYRfJGNvoV0aijro XHBnYnJkcmhlYWRccGdicm UwVa0vuHfnNZD0KFlrP6sh dQ0iGlP0ALqiQ8wjtZ5bSF c6CQkdlUY4NQDyaR8hLU0t tzaam0gnFPlfLJkeDQTjno A3njJ8SAVczUTnL5YhjL8m AAZhFS1ivglww7ppIUR5RA eyDDHgLDI1OdQuIECxh4Pn xbj5UrDwt4FmjFOsJTvsR6 0dx384ABXqzuSkX9kwlQDa rkpjwVZsylbePWbortA7ZD FsXHBsYWluXGYxXGZzMjBc bGFuZzEwMzNcaGljaFxmMV yzDdQfPUChZMvoM4gaExRs S7MrJXAeWoGefLYyYIsitU Q3SWAqTQKbv25cgCa5HATm nwuec9KlZHWusCVssBBsoD 2dwbUcl1hbXBRmIMMrZJMx V4OtAPY7kGSsRURznAHorE J4JI8ymhRzHO8mIZByHhmx cmVzaWRlbnRzLCBmZWxsb3 jwRB0pGTXzcInvfE4ioYC0 JWRih0zyvASrwQGgg0hsv7 UgbmFtZShzKSBtYXkgYXBw NFKvPI1kSNGsqOGmxgGsl8 A6XetaxMFfordaOxqmjbU2 YDwlezdoLJYrKYoyB6otVd VkSGDqwRaxFaoqn7LeTRUg XGZzMjhccGFyfX0= Clinical Information Ileostomy care [Z43.2] (test code = 5248904781) Gross Description (test o8kcjBXgJZFwxNHnMtHeTB code = 8849367022) NtIGVkn7clWOGznRUdYzQk MzNcZnRuYmpcdWMxXGRlZm Fyb1pqq453aJLgj2kqLWDv AwZ3uWDjTBUioTBjP626SX KoITfta5vzm2WbMQCidMDq r1F6ZQGZzkmecNx7fZxtC7 0oq7Q4YdguP1iwPESfQYYm X5AgXS6dPMVqVub6IKV3HD P3FVFoVVYmL1NiEF9aWRYp rOCnJGy3f8eatInnDGAjJS I5l1wbPEnuqcByST2nif0k oVh2z2uuxgAdMDVpIPBcfS SNIWSdE9AlfLsyQx6cyPj7 zVewVpswPEI2Sns7EK9kpc 15vwl7sNkaPEAiqprnTyJ3 RPuiYUTldmfgCRa4RWpuGK LvmIMxKYCfnZCoP6AkCZcm BH6nqsy2WkIqII5ibbuvHV nkIRRmYOV3EvIbBLMgd2Pa dhyoDmXguf2ucb93NWC5w8 MkwBayKMO0HMO9FhMhKk4f jQNvDJMaGY2tWdFkjHYsAP Hfrx44gFxdEKmfhaAooB0v PsBgOAGqnFIpEWNrSS5ocP PxMCHegM7vovzuCJUcQwJr vqekADKbvTdpfmRmMi9nvM wvGCG8KAoxT6mfdE3gZgR5 EPhtV6fjcX5fOEy3EZdbpH B5ZHIcpV8gYB3yaetnr2py IXR0ICndSBBszyY7qyEzEA RbaLXcL8LirL35YvWczITf P9SuhG5wLSgnGANobuf9Mz NbPp4vpLPanWQ6XZfxXkwi YWdlXHBnbmNvbnRccGduZG VjXHBsYWluXHBsYWluXGYw MRBrEfPahUlwgWihiT8iDc DqKiYtCIqwOK0eBWWqJ6dm jOZpDSJuIJQcF3saUvCvlS 9jaFxmMVxmczIwIFNwZWNp eCOzXLBbnoKzOTd9UKFnQx Pcg1yglXUmVSouMYI9fRMu bQC0zUQatNacMC3kaAKdYP IWPZ17hJChmvkxChDwZoNj qCpfc4DxEVRcyMEvt3JnoX pfp9MgsSJzBZVxGLNcm83d ySU0kkJnThTpmySfsVAcq9 GbiCptvCCuOPJyw04yb5Pr S0crEY8cp9f4dLJrTAJ0dp kqB6JiyNryt2J5yMTeFLGp sW7bJPIeneBsUSGjyIUyiF HkHGAih5F4TGSdR71ervAy e1SmWu03BHmpTXNvPUAxxS GhxqXdSU2feJpbDD4fUHVw NiBjbSBkaWFtZXRlcikuIC VEjPQdd9ZlDD36T77sYPPf kYJ3tPCrw3KraMYbuROtSX YgunOzfCSznOPczN3cN9Iy yS74QS6ck8d1jUGjKCPikX 7dujlbVV3fABWrwJHpmVIb QGHfqX9uLYDgZzMkgEbfLF IvHOHloXKsnPJubUWzH7pr QIgwZSGuaL03FMHfYP1pCQ OeTRDjoTMfoO1aobMvukHb hTQiYMAzwgK1SQGgvY2bLH VucmVtYXJrYWJsZSBpbnRl l5DstcXeAO63M22wFA0zAu TgnyXnWN05KJBmdkHkVrXa qY81qRxcs08og0IjeEDehQ NfEQxgsEyegjGyXRW9lA0h hwDlhfVlb7YwgHj6aOSnDD FzIEExXHBsYWluXGYwXGZz MjBcbGFuZzEwMzNcaGljaF mkHFglOsAbYGRsBSvxO8jt LrHwKeYtSHr1EIOhOVVmZm b1MPZoAZnmKLOgMFTtPjWm bGFuZzEwMzNcaGljaFxmMV xbYkXjNXBwCFeoD0pcKjBa MjUrNWPAHx6lhMNlFPAyfm PFgAMsuR8ootEGHUGmD5Gw dmVkIGZyZXNoIGxhYmVsZW Iwz0r5xWK4zDOzvEG0bPIj uGnbAE4mwTOlHMTQIK87mY EehhdsJzXaDzHcrTsin0Ie YEVurPRiI27uqAJoIZ2cn5 XdgA1yfRKhSHCvUAKkc26h vIY7nwGeHyVcueNxaaKlS3 BuYDVvh5QzsEAsxBQfQfSk dpIqoC2it1ZyVDEzs1qfuT X4aXQsGL28qTVwdNcyCJT7 KCMpCUAlRBUuaR6nZLu4Zm MvbKDuFiIypXEcYukqN26w KlByX8JkkLfiDE5rwwzpzr AvNODhTANadMIhn9HeMNKb RLSiaaBfwwC8rwSdqLFez7 TywNUaG42ip92fInZwulWw uKykCRbboECaf9MsCBIzFL BlgePjIM08LzGtNHvvZUtx jIGpb1DeVSnlonJxOPRhxD nxaQYibWOwt3v2fQ4yTQtt bHltcGhvaWQgaHlwZXJwbG YmoCQlKROxDWYdUH0nIR1f DKJdrADod6YklQV6zFLdNR PoO7Iat30pYNBkKIBkxRPv sLD7PDAzVIVlZcAiuCawzP 8lGbRnOiFlWEzmZQ3cADCd G2yjcPNvHRYwWLDxI0xtDw AviH7teKqcBRxousUvWBQ8 PnPdJPbpEOYdrYhztT3qCm WlYlWhIEvmUA3vQGPtK0gb kXXbTPEuFNMyA3ajKoOmyH 9jaFxmMVxmczIwIEIyLlxw YXJccGFyXHBhcmRccGxhaW 5cZjBcZnMyNFxwbGFpblxm MVxmczIwXGxhbmcxMDMzXG teW5gnOtDwDSYebSxeMYkb b4HnVVQxTEYaWdPjYUU7dV BYuE80AUElSODxBAEhpZsw lY4bkVG2EDUsh4mujNBzzB lccGFyfQ== Embedded Images (test code = 3984369574) [facility] MSSA Screen by [id number] 21:21:00 Test Item Value Reference Range Interpretation Comments MSSA Screen by Phill BERMUDEZ (test code Negative Negative = 31844-4) MRSA/MSSA Positive? (test code = No No 4197547672) Lab Interpretation (test code = Normal 95015-6) [facility]lands[facility]inalysis2020-11-18 06:06:00 Test Item Value Reference Range Interpretation Comments APPEARANCE (test code = Cloudy Clear A 6300129748) COLOR (test code = Kathleen Yellow A 6685729396) PH (test code = 4.8-8.0 7163903719) SP GRAVITY (test code = 1.003-1.030 8280821426) GLU U QUAL (test code = Normal Normal 7859642664) BLOOD (test code = 1+ Negative A 6936316166) KETONES (test code = 5 mg/dL Negative A 4465287754) PROTEIN (test code = 100 mg/dL Negative A 2887-8) UROBILIN (test code = 2.0 mg/dL Normal A 7023300314) BILIRUBIN (test code = Negative Negative 2800443137) NITRITE (test code = Negative Negative 6467439321) LEUK CEHLY (test code = Negative Negative 9154671191) RBC/HPF (test code = See_Comment H [Autom ated message] 5097139065) The system [employer] generated this result transmit carl reference range : 0 - 3 HPF. The refe rence range was not u sed to interpret th is result as normal/abnormal . WBC/HPF (test code = See_Comment [Autom ated message] 1941967786) The system [employer] generated this result transmit carl reference range : 0 - 5 HPF. The refe rence range was not u sed to interpret th is result as normal/abnormal . BACTERIA (test code = Moderate Negative A 1414085470) MUCOUS (test code = Marked Negative LPF A 0156632423) SQ EPITH (test code = HPF 7988351148) CA OXALATE (test code = See_Comment H [Au tomated message] 4276921435) The system [employer] generated this result transmit carl reference range : <=1 HPF. The refere nce range was not u sed to interpret th is result as normal/abnormal . HYAL CAST (test code = See_Comment H [Aut omated message] 1959911612) The system [employer] generated this result transmit carl reference range : <=2 LPF. The refere nce range was not u sed to interpret th is result as normal/abnormal . GRAN CASTS (test code = See_Comment H [Au tomated message] 3714841636) The system [employer] generated this result transmit carl reference range : <=1 LPF. The refere nce range was not u sed to interpret th is result as normal/abnormal . Lab Interpretation (test Abnormal code = 41499-8) [facility]lands[facility] Function [facility] (ALB, T.PRO, BILI T, BU/BC, ALT, AST, ALK PHOS)2020-10-02 05:46:00 Test Item Value Reference Range Interpretation Comments TOTAL BILI (test code = 8720469162) 1.0 mg/dL 0.1-1.1 BILI UNCON (test code = 1301071110) 0.6 mg/dL 0.1-1.1 BILI CONJ (test code = 8989951372) 0.0 mg/dL 0-0.3 T PROTEIN (test code = 0410483784) 9.9 g/dL 6.3-8.2 H ALBUMIN (test code = 6198217527) 5.4 g/dL 3.5-5 H ALK PHOS (test code = 4995762812) 153 U/L 34-122 H ALTv (test code = 1742-6) 62 U/L 5-35 H AST(SGOT) (test code = 1679395098) 51 U/L 13-40 H Lab Interpretation (test code = Abnormal 58942-7) [facility]landsLipase [id number] 05:46:00 Test Item Value Reference Range Interpretation Comments LIPASE (test code = 7793718229) 117 U/L 0-220 Lab Interpretation (test code = Normal 28090-4) [facility] Metabolic Panel (NA, K, CL, CO2, GLUCOSE, BUN, CREATININE, CA)2020-10-02 05:46:00 Test Item Value Reference Range Interpretation Comments NA (test code = 135 mmol/L 135-145 8458375094) K (test code = 4.4 mmol/L 3.5-5 6106818780) CL (test code = 102 mmol/L 98-108 8020877006) CO2 TOTAL (test code = 19 mmol/L 23-31 L 0948926731) AGAP (test code = 2-16 3192670612) BUN (test code = 19 mg/dL 7-23 2951413298) GLUCOSE (test code = 135 mg/dL 70-110 H 5943827800) CREATININE (test code = 1.19 mg/dL 0.5-1.04 H 1054683587) CALCIUM (test code = 11.3 mg/dL 8.6-10.6 H 0033217569) eGFR Calculation mL/min/1.73m2 (Non-) (test code = 9929552088) eGFR Calculation mL/min/1.73m2 () (test code = 7459977386) RAUDEL (test code = RAUDEL) Association of [...] tests). Lab Interpretation Abnormal (test code = 29931-8) [facility] with Uqncxxtskiyg8743-08-59 05:34:00 Test Item Value Reference Range Interpretation Comments WBC (test code = See_Comment [Automated 1290-2) message] The sy stem which generated this result transmitted reference range : 4.30 - 11.10 10*3/?L. The reference range was not used to interpret this result as normal/abnormal . RBC (test code = See_Comment [Automated 929-8) message] The sy stem which generated this [...] RDW-SD (test code = 40.6 fL 39-49.9 73390-9) RDW-CV (test code = 11.9 % 12-15.5 L 788-0) PLT (test code = See_Comment H [Automated 777-3) message] The sy stem which generated this result transmitted reference range : 166 - 358 10*3/ ?L. The reference r madelin was not used to interpret this result as normal/abnormal . MPV (test code = 9.9 fL 9.5-12.9 33642-0) NRBC/100 WBC (test See_Comment [Automat ed code = 8476617013) message] The system which generated this result transmitted reference range : 0.0 - 10.0 /100 WBCs. The refer ence range was not u sed to interpret th is result as normal/abnormal . NRBC x10^3 (test code <0.01 See_Comment [Auto mated = 4302432081) message] The s ystem which generated this result transmitted reference range : 10*3/?L. The reference range was not used to interpret this result as normal/abnormal . GRAN MAT (NEUT) % 38.8 % (test code = 770-8) IMM GRAN % (test code 0.20 % = 3694249395) LYMPH % (test code = 51.7 % 736-9) MONO % (test code = 7.4 % 5905-5) EOS % (test code = 0.9 % 713-8) BASO % (test code = 1.0 % 706-2) GRAN MAT x10^3(ANC) 2.27 10*3/uL 1.88-7.09 (test code = 2512946757) IMM GRAN x10^3 (test <0.03 0-0.06 code = 1098113298) LYMPH x10^3 (test code 3.02 10*3/uL 1.32-3.29 = 731-0) MONO x10^3 (test code 0.43 10*3/uL 0.33-0.92 = 742-7) EOS x10^3 (test code = 0.05 10*3/uL 0.03-0.39 711-2) BASO x10^3 (test code 0.06 10*3/uL 0.01-0.07 = 704-7) Lab Interpretation Abnormal (test code = 39447-3) [facility]landsHCV BY [id number] 17:03:00 Test Item Value Reference Range Interpretation Comments HCV by Real-Time Not Detected Not detected IU/mL PCR (test code = 5639285887) RAUDEL (test code = [employer] m2000 RealTime HCV RAUDEL) reverse field ironworker-polymerase chain reaction(RT-PCR) assay is used. It is [...] IU/mL,>100,000,000 IU/mL: >upper limit of quantification. [facility] METABOLIC PANEL ([id number])2020-09-16 15:03:00 Test Item Value Reference Range Interpretation Comments NA (test code = 135 mmol/L 135-145 1248481911) K (test code = 4.4 mmol/L 3.5-5 4092347448) CL (test code = 111 mmol/L 98-108 H 0053603549) CO2 TOTAL (test code = 21 mmol/L 23-31 L 5599275202) AGAP (test code = 2-16 2009622076) BUN (test code = 11 mg/dL 7-23 5953705971) GLUCOSE (test code = 115 mg/dL 70-110 H 6977441131) CREATININE (test code = 0.83 mg/dL 0.5-1.04 1910243525) TOTAL BILI (test code = 0.5 mg/dL 0.1-1.6 4117761780) CALCIUM (test code = 8.3 mg/dL 8.6-10.6 L 3181782173) T PROTEIN (test code = 5.4 g/dL 6.3-8.2 L 4138581128) ALBUMIN (test code = 2.8 g/dL 3.5-5 L 6277179975) ALK PHOS (test code = 71 U/L 34-122 6071298332) ALTv (test code = 31 U/L 5-35 1742-6) AST(SGOT) (test code = 31 U/L 13-40 2598008692) eGFR Calculation mL/min/1.73m2 (Non-) (test code = 2511367374) eGFR Calculation mL/min/1.73m2 () (test code = 1979460810) RAUDEL (test code = RAUDEL) Association of [...] tests). Lab Interpretation Abnormal (test code = 44873-9) [facility]. METABOLIC PANEL ([id number])2020-09-15 11:19:00 Test Item Value Reference Range Interpretation Comments NA (test code = 135 mmol/L 135-145 7761886118) K (test code = 3.9 mmol/L 3.5-5 6626605701) CL (test code = 104 mmol/L 98-108 0532692234) CO2 TOTAL (test code = 27 mmol/L 23-31 8931756510) AGAP (test code = 2-16 1435106113) BUN (test code = 15 mg/dL 7-23 4504716556) GLUCOSE (test code = 153 mg/dL 70-110 H 6043625999) CREATININE (test code = 0.91 mg/dL 0.5-1.04 1984785257) TOTAL BILI (test code = 0.4 mg/dL 0.1-1.4 5909169723) CALCIUM (test code = 9.2 mg/dL 8.6-10.6 7481106529) T PROTEIN (test code = 7.2 g/dL 6.3-8.2 6500110438) ALBUMIN (test code = 3.8 g/dL 3.5-5 1817772290) ALK PHOS (test code = 106 U/L 34-122 3201589104) ALTv (test code = 43 U/L 5-35 H 1742-6) AST(SGOT) (test code = 28 U/L 13-40 7534862019) eGFR Calculation mL/min/1.73m2 (Non-) (test code = 3990136635) eGFR Calculation mL/min/1.73m2 () (test code = 1044155273) RAUDEL (test code = RAUDEL) Association of [...] tests). Lab Interpretation Abnormal (test code = 94279-2) [facility] (30938) (ALB,T.PRO,BILI T,BU/BC,ALT,AST,ALK PHOS)2020-09-14 19:50:00 Test Item Value Reference Range Interpretation Comments TOTAL BILI (test code = 9568164675) 0.5 mg/dL 0.1-1.1 BILI UNCON (test code = 7955550669) 0.4 mg/dL 0.1-1.1 BILI CONJ (test code = 8260933322) 0.0 mg/dL 0-0.3 T PROTEIN (test code = 4754587499) 6.5 g/dL 6.3-8.2 ALBUMIN (test code = 8318219544) 3.4 g/dL 3.5-5 L ALK PHOS (test code = 5078193156) 95 U/L 34-122 ALTv (test code = 1742-6) 45 U/L 5-35 H AST(SGOT) (test code = 5710981131) 31 U/L 13-40 Lab Interpretation (test code = Abnormal 39247-0) [facility]landsCREATINE [id number] 18:49:00 Test Item Value Reference Range Interpretation Comments CK (test code = 9452840650) 44 U/L 33-194 Lab Interpretation (test code = Normal 55794-5) [facility] (NA, K, CL, CO2, GLUCOSE, BUN, CREATININE, CA)2020-09-14 17:05:00 Test Item Value Reference Range Interpretation Comments NA (test code = 136 mmol/L 135-145 0700315487) K (test code = 3.9 mmol/L 3.5-5 5068250507) CL (test code = 104 mmol/L 98-108 7503305697) CO2 TOTAL (test code = 27 mmol/L 23-31 9458435826) AGAP (test code = 2-16 1605636104) BUN (test code = 17 mg/dL 7-23 5667033972) GLUCOSE (test code = 114 mg/dL 70-110 H 2574790763) CREATININE (test code = 0.84 mg/dL 0.5-1.04 5655538745) CALCIUM (test code = 8.9 mg/dL 8.6-10.6 6425182742) eGFR Calculation mL/min/1.73m2 (Non-) (test code = 3008094354) eGFR Calculation mL/min/1.73m2 () (test code = 8394034312) RAUDEL (test code = RAUDEL) Association of [...] tests). Lab Interpretation Abnormal (test code = 90946-4) [facility]AT[facility] SURFACE [id number] 16:44:00 Test Item Value Reference Range Interpretation Comments HBsAB (test code = Negative 7144155954) HBsAb mIU/mL Semi-Quantitative (test code = 4742435094) RAUDEL (test code = Interpretation: RAUDEL) ?Hepatitis B Surface Antibody ? Negative - Patient is considered to be not immune to infection with HBV. ? ? Positive - Anti-HBs detected at greater than or equal to 12 mIU/mL. ?Patient is considered to be immune to infection with HBV. ? [facility]HEPAT[facility]IS B SURFACE [id number] 16:27:00 Test Item Value Reference Range Interpretation Comments HBsAg Semi-Quantitative (test code = Negative Negative 5195-3) [facility]2020-10-31 04:05:00 Test Item Value Reference Range Interpretation Comments MAGNESIUM (test code = 0239101979) 1.6 mg/dL 1.7-2.4 L Lab Interpretation (test code = Abnormal 83131-3) [facility]landsTROPONIN [id number] 20:02:00 Test Item Value Reference Range Interpretation Comments TROPONIN I (test <0.012 See_Comment [Automated code = 5420621154) message] The system which generated this result [...] ? Lab Interpretation Normal (test code = 34476-5) [facility] METABOLIC PANEL (71737)2020-09-13 17:43:00 Test Item Value Reference Range Interpretation Comments NA (test code = 139 mmol/L 135-145 3665451466) K (test code = 4.5 mmol/L 3.5-5 6421549813) CL (test code = 99 mmol/L 98-108 3966607149) CO2 TOTAL (test code = 31 mmol/L 23-31 9272211891) AGAP (test code = 2-16 9906110279) BUN (test code = 14 mg/dL 7-23 9214917361) GLUCOSE (test code = 115 mg/dL 70-110 H 3698409404) CREATININE (test code = 1.31 mg/dL 0.5-1.04 H 5008475317) TOTAL BILI (test code = 1.4 mg/dL 0.1-1.1 H 0981008858) CALCIUM (test code = 10.6 mg/dL 8.6-10.6 9271675793) T PROTEIN (test code = 9.1 g/dL 6.3-8.2 H 3828696150) ALBUMIN (test code = 4.7 g/dL 3.5-5 3392518816) ALK PHOS (test code = 160 U/L 34-122 H 1004914274) ALTv (test code = 84 U/L 5-35 H 1742-6) AST(SGOT) (test code = 51 U/L 13-40 H 2579721518) eGFR Calculation mL/min/1.73m2 (Non-) (test code = 6294392409) eGFR Calculation mL/min/1.73m2 () (test code = 2246244679) RAUDEL (test code = RAUDEL) Association of [...] tests). Lab Interpretation Abnormal (test code = 85422-4) [facility] Test Item Value Reference Range Interpretation Comments LIPASE (test code = 1199944501) 88 U/L 0-220 Lab Interpretation (test code = Normal 25649-4) [facility] WITH [id number] 17:31:00 Test Item Value Reference Range Interpretation Comments WBC (test code = See_Comment [Automated 9582-2) message] The sy stem which generated this result transmitted reference range : 4.30 - 11.10 10*3/?L. The reference range was not used to interpret this result as normal/abnormal . RBC (test code = See_Comment [Automated 662-8) message] The sy stem which generated this [...] RDW-SD (test code = 44.9 fL 39-49.9 59203-0) RDW-CV (test code = 12.9 % 12-15.5 788-0) PLT (test code = See_Comment H [Automated 777-3) message] The sy stem which generated this result transmitted reference range : 166 - 358 10*3/ ?L. The reference r madelin was not used to interpret this result as normal/abnormal . MPV (test code = 9.7 fL 9.5-12.9 07999-8) NRBC/100 WBC (test See_Comment [Automat ed code = 9965049488) message] The system which generated this result transmitted reference range : 0.0 - 10.0 /100 WBCs. The refer ence range was not u sed to interpret th is result as normal/abnormal . NRBC x10^3 (test code <0.01 See_Comment [Auto mated = 7492940246) message] The s ystem which generated this result transmitted reference range : 10*3/?L. The reference range was not used to interpret this result as normal/abnormal . GRAN MAT (NEUT) % 80.0 % (test code = 770-8) IMM GRAN % (test code 0.50 % = 1745986443) LYMPH % (test code = 10.4 % 736-9) MONO % (test code = 7.1 % 5905-5) EOS % (test code = 1.5 % 713-8) BASO % (test code = 0.5 % 706-2) GRAN MAT x10^3(ANC) 7.11 10*3/uL 1.88-7.09 H (test code = 5048665452) IMM GRAN x10^3 (test 0.04 10*3/uL 0-0.06 code = 7310026637) LYMPH x10^3 (test code 0.92 10*3/uL 1.32-3.29 L = 731-0) MONO x10^3 (test code 0.63 10*3/uL 0.33-0.92 = 742-7) EOS x10^3 (test code = 0.13 10*3/uL 0.03-0.39 711-2) BASO x10^3 (test code 0.04 10*3/uL 0.01-0.07 = 704-7) Lab Interpretation Abnormal (test code = 85520-1) [facility] 2 [id number] 17:08:57Overall, bowel gas pattern is felt to [...] pelvis.Ostomy appliance projects over the right lower quadrant.[facility] METABOLIC PANEL ([id number])2020-09-01 07:34:00 Test Item Value Reference Range Interpretation Comments NA (test code = 137 mmol/L 135-145 0435150110) K (test code = 3.6 mmol/L 3.5-5 1275424657) CL (test code = 100 mmol/L 98-108 8746376588) CO2 TOTAL (test code = 26 mmol/L 23-31 9594596447) AGAP (test code = 2-16 2407943282) BUN (test code = 19 mg/dL 7-23 4694611387) GLUCOSE (test code = 171 mg/dL 70-110 H 4766811590) CREATININE (test code = 0.98 mg/dL 0.5-1.04 1266838492) TOTAL BILI (test code = 0.8 mg/dL 0.1-1.5 9948593042) CALCIUM (test code = 10.4 mg/dL 8.6-10.6 2261367618) T PROTEIN (test code = 8.9 g/dL 6.3-8.2 H 4074447787) ALBUMIN (test code = 4.9 g/dL 3.5-5 3916975969) ALK PHOS (test code = 109 U/L 34-122 8765486589) ALTv (test code = 46 U/L 5-35 H 1742-6) AST(SGOT) (test code = 26 U/L 13-40 0531048866) eGFR Calculation mL/min/1.73m2 (Non-) (test code = 0298104874) eGFR Calculation mL/min/1.73m2 () (test code = 5772247972) RAUDEL (test code = RAUDEL) Association of [...] tests). Lab Interpretation Abnormal (test code = 42800-1) [facility] 07:34:00 Test Item Value Reference Range Interpretation Comments LIPASE (test code = 8006426648) 103 U/L 0-220 Lab Interpretation (test code = Normal 13085-7) [facility] WITH [id number] 07:19:00 Test Item Value Reference Range Interpretation [...] RDW-SD (test code = 40.4 fL 39-49.9 10828-4) RDW-CV (test code = 12.1 % 12-15.5 788-0) PLT (test code = See_Comment [Automated 777-3) message] The sy stem which generated this result transmitted reference range : 166 - 358 10*3/ ?L. The reference r madelin was not used to interpret this result as normal/abnormal . MPV (test code = 10.7 fL 9.5-12.9 31610-8) NRBC/100 WBC (test See_Comment [Automat ed code = 1743798527) message] The system which generated this result transmitted reference range : 0.0 - 10.0 /100 WBCs. The refer ence range was not u sed to interpret th is result as normal/abnormal . NRBC x10^3 (test code <0.01 See_Comment [Auto mated = 6908537344) message] The s ystem which generated this result transmitted reference range : 10*3/?L. The reference range was not used to interpret this result as normal/abnormal . GRAN MAT (NEUT) % 77.7 % (test code = 770-8) IMM GRAN % (test code 0.20 % = 4515019866) LYMPH % (test code = 18.3 % 736-9) MONO % (test code = 3.5 % 5905-5) EOS % (test code = 0.0 % 713-8) BASO % (test code = 0.3 % 706-2) GRAN MAT x10^3(ANC) 4.63 10*3/uL 1.88-7.09 (test code = 2478320245) IMM GRAN x10^3 (test <0.03 0-0.06 code = 7039724478) LYMPH x10^3 (test code 1.09 10*3/uL 1.32-3.29 L = 731-0) MONO x10^3 (test code 0.21 10*3/uL 0.33-0.92 L = 742-7) EOS x10^3 (test code = <0.03 0.03-0.39 L 711-2) BASO x10^3 (test code <0.03 0.01-0.07 = 704-7) Lab Interpretation Abnormal (test code = 05170-0) [facility] 02:48:00 Test Item Value Reference Range Interpretation Comments LIPASE (test code = 8684572312) 171 U/L 0-220 Lab Interpretation (test code = Normal 08096-0) [facility] WITH [id number] 02:25:00 Test Item Value Reference Range Interpretation Comments WBC (test code = See_Comment [Automated message] 6690-2) The system [employer] h generated this result transmitted ref erence range: 4.30 - 1 1.10 10*3/?L. The re ference range was not u sed to interpret this result as normal/abnor mal. RBC (test code = See_Comment [Automated message] 789-8) The system [employer] generated this result transmitted ref erence range: [...] RDW-SD (test code 42.3 fL 39-49.9 = 76402-8) RDW-CV (test code 12.1 % 12-15.5 = 788-0) PLT (test code = See_Comment [Automated message] 777-3) The system [employer] generated this result transmitted ref erence range: 166 - 35 8 10*3/?L. The re ference range was not u sed to interpret this result as normal/abnor mal. MPV (test code = 11.0 fL 9.5-12.9 03079-5) NRBC/100 WBC (test See_Comment [Automat ed message] code = 5490254061) The syste m which generated this result transmitted ref erence range: 0.0 - 10 .0 /100 WBCs. The refer ence range was not u sed to interpret this result as normal/abnor mal. NRBC x10^3 (test <0.01 See_Comment [Automated message] code = 4179675502) The syste m which generated this result transmitted ref erence range: 10*3/?L. The reference range was not used to interpr et this result as normal/abnormal . GRAN MAT (NEUT) % 44.5 % (test code = 770-8) IMM GRAN % (test 0.20 % code = 4983147227) LYMPH % (test code 43.0 % = 736-9) MONO % (test code 9.5 % = 5905-5) EOS % (test code = 1.7 % 713-8) BASO % (test code 1.1 % = 706-2) GRAN MAT 2.35 10*3/uL 1.88-7.09 x10^3(ANC) (test code = 8803394179) IMM GRAN x10^3 <0.03 0-0.06 (test code = 4525092183) LYMPH x10^3 (test 2.27 10*3/uL 1.32-3.29 code = 731-0) MONO x10^3 (test 0.50 10*3/uL 0.33-0.92 code = 742-7) EOS x10^3 (test 0.09 10*3/uL 0.03-0.39 code = 711-2) BASO x10^3 (test 0.06 10*3/uL 0.01-0.07 code = 704-7) [facility] PEL[facility] W [id number] 03:50:29Addendum by Rhett Harden MD on 08/17/2020 11:01 PM* * * * * * * * ADDENDUM: * * * * * * * * The finding regarding left breast nodule was discussed with Dr MunozZqecjtvw79/3/2020 10:53 PM Preliminary Report Dictated by Resident: [...] reviewed this study and agree with theabove report.[facility] (ID NOW RAPID TESTING) 2020-08-18 01:55:00 Test Item Value Reference Range Interpretation Comments SARS-CoV-2 Rapid ID NOW Not Detected Not Detected (test code = 02659-1) RAUDEL (test code = RAUDEL) ID NOW COVID-19 Assay is an isothermal nucleic acid amplification test intended for the qualitative detection of nucleic acid from SARS-CoV-2 viral RNA in nasopharyngeal (MANAGER [employer]) specimens. It is used under Emergency Use [...] indicated. Lab Interpretation Normal (test code = 83692-2) [facility]. METABOLIC PANEL ([id number])2020-08-18 01:47:00 Test Item Value Reference Range Interpretation Comments NA (test code = 135 mmol/L 135-145 4015620733) K (test code = 4.1 mmol/L 3.5-5 6267413816) CL (test code = 96 mmol/L 98-108 L 6126010497) CO2 TOTAL (test code = 30 mmol/L 23-31 5329876661) AGAP (test code = 2-16 0799173652) BUN (test code = 17 mg/dL 7-23 1458282504) GLUCOSE (test code = 149 mg/dL 70-110 H 3585039071) CREATININE (test code = 1.21 mg/dL 0.5-1.04 H 9515469376) TOTAL BILI (test code = 0.7 mg/dL 0.1-1.0 6587091446) CALCIUM (test code = 10.5 mg/dL 8.6-10.6 1199621039) T PROTEIN (test code = 8.6 g/dL 6.3-8.2 H 7792250628) ALBUMIN (test code = 4.4 g/dL 3.5-5 1782767129) ALK PHOS (test code = 170 U/L 34-122 H 4025427734) ALTv (test code = 145 U/L 5-35 H 1742-6) AST(SGOT) (test code = 70 U/L 13-40 H 6399216582) eGFR Calculation mL/min/1.73m2 (Non-) (test code = 4600331914) eGFR Calculation mL/min/1.73m2 () (test code = 7260255927) RAUDEL (test code = RAUDEL) Association of [...] tests). Lab Interpretation Abnormal (test code = 23295-5) [facility] 01:47:00 Test Item Value Reference Range Interpretation Comments LIPASE (test code = 1160402226) 172 U/L 0-220 Lab Interpretation (test code = Normal 12295-4) [facility] WITH [id number] 01:34:00 Test Item Value Reference Range Interpretation Comments WBC (test code = See_Comment [Automated 5650-2) message] The sy stem which generated this result transmitted reference range : 4.30 - 11.10 10*3/?L. The reference range was not used to interpret this result as normal/abnormal . RBC (test code = See_Comment [Automated 539-8) message] The sy stem which generated this [...] RDW-SD (test code = 41.1 fL 39-49.9 29130-9) RDW-CV (test code = 11.8 % 12-15.5 L 788-0) PLT (test code = See_Comment [Automated 127-3) message] The sy stem which generated this result transmitted reference range : 166 - 358 10*3/ ?L. The reference r madelin was not used to interpret this result as normal/abnormal . MPV (test code = 10.4 fL 9.5-12.9 04562-2) NRBC/100 WBC (test See_Comment [Automat ed code = 2944833332) message] The system which generated this result transmitted reference range : 0.0 - 10.0 /100 WBCs. The refer ence range was not u sed to interpret th is result as normal/abnormal . NRBC x10^3 (test code <0.01 See_Comment [Auto mated = 9618660436) message] The s ystem which generated this result transmitted reference range : 10*3/?L. The reference range was not used to interpret this result as normal/abnormal . GRAN MAT (NEUT) % 50.9 % (test code = 770-8) IMM GRAN % (test code 0.40 % = 4445758325) LYMPH % (test code = 35.9 % 736-9) MONO % (test code = 9.9 % 5905-5) EOS % (test code = 2.2 % 713-8) BASO % (test code = 0.7 % 706-2) GRAN MAT x10^3(ANC) 2.31 10*3/uL 1.88-7.09 (test code = 1730990844) IMM GRAN x10^3 (test <0.03 0-0.06 code = 6084682523) LYMPH x10^3 (test code 1.63 10*3/uL 1.32-3.29 = 731-0) MONO x10^3 (test code 0.45 10*3/uL 0.33-0.92 = 742-7) EOS x10^3 (test code = 0.10 10*3/uL 0.03-0.39 711-2) BASO x10^3 (test code 0.03 10*3/uL 0.01-0.07 = 704-7) Lab Interpretation Abnormal (test code = 37391-0) [facility] WITH [id number] 10:12:00 Test Item Value Reference Range Interpretation [...] RDW-SD (test code = 45.2 fL 39-49.9 80992-4) RDW-CV (test code = 12.9 % 12-15.5 788-0) PLT (test code = See_Comment H [Automated 777-3) message] The sy stem which generated this result transmitted reference range : 166 - 358 10*3/ ?L. The reference r madelin was not used to interpret this result as normal/abnormal . MPV (test code = 9.8 fL 9.5-12.9 24024-7) NRBC/100 WBC (test See_Comment [Automat ed code = 8295539960) message] The system which generated this result transmitted reference range : 0.0 - 10.0 /100 WBCs. The refer ence range was not u sed to interpret th is result as normal/abnormal . NRBC x10^3 (test code <0.01 See_Comment [Auto mated = 7063010399) message] The s ystem which generated this result transmitted reference range : 10*3/?L. The reference range was not used to interpret this result as normal/abnormal . GRAN MAT (NEUT) % 64.8 % (test code = 770-8) IMM GRAN % (test code 2.10 % = 0819265794) LYMPH % (test code = 21.9 % 736-9) MONO % (test code = 9.0 % 5905-5) EOS % (test code = 1.9 % 713-8) BASO % (test code = 0.3 % 706-2) GRAN MAT x10^3(ANC) 8.61 10*3/uL 1.88-7.09 H (test code = 8684412212) IMM GRAN x10^3 (test 0.28 10*3/uL 0-0.06 H code = 4670952803) LYMPH x10^3 (test code 2.91 10*3/uL 1.32-3.29 = 731-0) MONO x10^3 (test code 1.20 10*3/uL 0.33-0.92 H = 742-7) EOS x10^3 (test code = 0.25 10*3/uL 0.03-0.39 711-2) BASO x10^3 (test code 0.04 10*3/uL 0.01-0.07 = 704-7) REACT LYMPHS (test Rare code = 8401808830) Lab Interpretation Abnormal (test code = 21176-4) [facility] METABOLIC PANEL (NA, K, CL, CO2, GLUCOSE, BUN, CREATININE, CA)2020-08-01 09:46:00 Test Item Value Reference Range Interpretation Comments NA (test code = 137 mmol/L 135-145 4893835207) K (test code = 4.0 mmol/L 3.5-5 4592802675) CL (test code = 100 mmol/L 98-108 3418742764) CO2 TOTAL (test code = 30 mmol/L 23-31 0771294954) AGAP (test code = 2-16 2151714733) BUN (test code = 5 mg/dL 7-23 L 2518213355) GLUCOSE (test code = 139 mg/dL 70-110 H 7063854778) CREATININE (test code = 0.73 mg/dL 0.5-1.04 4965194379) CALCIUM (test code = 9.3 mg/dL 8.6-10.6 3968391539) eGFR Calculation mL/min/1.73m2 (Non-) (test code = 1481301875) eGFR Calculation mL/min/1.73m2 () (test code = 7525726674) RAUDEL (test code = RAUDEL) Association of [...] tests). Lab Interpretation Abnormal (test code = 26599-5) [facility]17 09:46:00 Test Item Value Reference Range Interpretation Comments MAGNESIUM (test code = 1926364013) 1.9 mg/dL 1.7-2.4 Lab Interpretation (test code = Normal 16920-0) [facility]2020-09-17 09:46:00 Test Item Value Reference Range Interpretation Comments PHOSPHORUS (test code = 0565635953) 3.0 mg/dL 2.5-5 Lab Interpretation (test code = Normal 29651-5) [facility] [id number] 10:55:00 Test Item Value Reference Range Interpretation Comments WBC (test code = See_Comment [Automated 6590-2) message] The sy stem which generated this [...] RDW-SD (test code = 45.4 fL 39-49.9 34006-9) RDW-CV (test code = 12.8 % 12-15.5 788-0) PLT (test code = See_Comment H [Automated 777-3) message] The sy stem which generated this result transmitted reference range : 166 - 358 10*3/ ?L. The reference r madelin was not used to interpret this result as normal/abnormal . MPV (test code = 9.7 fL 9.5-12.9 50749-1) NRBC/100 WBC (test See_Comment [Automat ed code = 2941920442) message] The system which generated this result transmitted reference range : 0.0 - 10.0 /100 WBCs. The refer ence range was not u sed to interpret th is result as normal/abnormal . NRBC x10^3 (test code <0.01 See_Comment [Auto mated = 9381839343) message] The s ystem which generated this result transmitted reference range : 10*3/?L. The reference range was not used to interpret this result as normal/abnormal . GRAN MAT (NEUT) % 42.8 % (test code = 770-8) IMM GRAN % (test code 5.50 % = 0853205226) LYMPH % (test code = 36.7 % 736-9) MONO % (test code = 11.8 % 5905-5) EOS % (test code = 2.8 % 713-8) BASO % (test code = 0.4 % 706-2) GRAN MAT x10^3(ANC) 4.35 10*3/uL 1.88-7.09 (test code = 8596545790) IMM GRAN x10^3 (test 0.56 10*3/uL 0-0.06 H code = 1548390415) LYMPH x10^3 (test code 3.74 10*3/uL 1.32-3.29 H = 731-0) MONO x10^3 (test code 1.20 10*3/uL 0.33-0.92 H = 742-7) EOS x10^3 (test code = 0.29 10*3/uL 0.03-0.39 711-2) BASO x10^3 (test code 0.04 10*3/uL 0.01-0.07 = 704-7) REACT LYMPHS (test Rare code = 6174926943) Lab Interpretation Abnormal (test code = 39136-8) [facility] METABOLIC PANEL (NA, K, CL, CO2, GLUCOSE, BUN, CREATININE, CA)2020-07-31 10:50:00 Test Item Value Reference Range Interpretation Comments NA (test code = 135 mmol/L 135-145 1566395908) K (test code = 3.8 mmol/L 3.5-5 0479554806) CL (test code = 101 mmol/L 98-108 0986056961) CO2 TOTAL (test code = 27 mmol/L 23-31 9682673880) AGAP (test code = 2-16 3506529804) BUN (test code = 2 mg/dL 7-23 L 1757966421) GLUCOSE (test code = 132 mg/dL 70-110 H 5750642865) CREATININE (test code = 0.72 mg/dL 0.5-1.04 1113126468) CALCIUM (test code = 8.4 mg/dL 8.6-10.6 L 4367443359) eGFR Calculation mL/min/1.73m2 (Non-) (test code = 8988223434) eGFR Calculation mL/min/1.73m2 () (test code = 5356968690) RAUDEL (test code = RAUDEL) Association of [...] tests). Lab Interpretation Abnormal (test code = 61856-8) [facility]16 10:50:00 Test Item Value Reference Range Interpretation Comments MAGNESIUM (test code = 1369420690) 1.2 mg/dL 1.7-2.4 L Lab Interpretation (test code = Abnormal 54336-3) [facility]2020-09-16 10:50:00 Test Item Value Reference Range Interpretation Comments PHOSPHORUS (test code = 1268237950) 3.8 mg/dL 2.5-5 Lab Interpretation (test code = Normal 76125-2) [facility] [id number] 15:48:00 Test Item Value Reference Range Interpretation Comments Case Report (test code Surgical Pathology ? ? = [id number]) ?Case: [id number] ? Authorizing Provider: ?Darren Clark MD ?Collected: ? 07/25/2020 1708 ?Ordering Location: ? ? [facility] OR ? Received: ?07/26/2020 0914 ? Department ? Pathologist: ? Deniz Josehp MD PHD ?Specimen: ? ?ABDOMEN, ILEOCECECTOMY ? Final Diagnosis (test z3sbtCHqRXXnx3qaYWMufMO code = 3416002887) uZzEwMzNcZnRuYmpcdWMxIH fscxWcLDucw0GlQ4YyTzKkC FxhbnNpXGRlZmxhbmcxMDMz ZCT3xrUwGBFvKSlyUEGhXPi kVx2snFLqyXyzVsPpWTVmw6 qwdbSZgoycpVk3v6wuDKMyV kJ3kDLtNLexH0btyhEqwKYf PYHtIPs7hB70BVHtkE3wvQU pBLheevKgBnG5GIraSMYuWp L2SRRudMHdGDLoZ8tlGVNhE OqgTPRgPIchrYOhVCL5tXrj f4A6oKRqnAUyqAgqPpPdMhD iNJYEh6VdZJz5mGuvE5SsQB VtNaA9rSTcUXEiBGnqNKHsY CXwprV6zN31EIedszK5kFPd t2Ekc33jl929zQ8svADgPVX 0XDOtITDdjOUuUABiMDI5XB LfeBNdA9omLTliXV5ohsjpH CO7GYgqNTXulPfjQCmwMGGz FtAgfARnXOXujTsvDRglh60 3AQQ2KbYaNQ0nQ1Wai7I2yY 9maXRcZGVmdGFiNzIwXGZvc e9ovEUbEHtpn9XoWDT3byO0 wTGoaYTqSPLwRS68Toghu6B gZhblIDX4SQYmxkNsu9Vhs3 vhRrOigvDqR4ljA9ZlBHAmN QEyKGEbXbKuvqXpn5Wgt3Lq tFCffAm6b9nvNJXrWYIcqOh fz1aiOXL0LBKcP2V7lIZsy3 qsFGoiWOOpoXY6dpGfMLMxz FPxS5RfgS6rKZijKD2wwcz4 b4mqMfXyPN4dntvie8waDCr mGNTqSKA9SkCbNLCwe5Dyxm nxCxAcc6LmnGJxXJjjI83fs 922NQFmjvIyE0jsdWNlgjbt wVYphfecSLvzuvZ4JRFxQLA sYWluXGYxXGZzMjBcbGFuZz EwMzNcaGljaFxmMVxkYmNoX EOdBHuxN5fzMhGeLpOgRDuy UDVyFN3fD86FQQmhTS2EHEL UVG2BZXHOIWZPLNJJVJJMWN PUY4CVAMGCJLPPB2QKLBVTD 77MBagvBTVmNANeRS7dQ0YI TUVOVEFMIFNNQUxMIElOVEV TVElORSAgSVNDSEVNSUMgTk LDVz7JNNDzB7nAAADVIzRZV 29SOxCDFHjQHt5TKrQDVS2X LCBccGFyICAgICAgICBTRUN RNtKCXasbSM5iGwbSUa7UMP VuEYVAWZLTU95yCD2ZHJQOF YcDRQXKK9IOAO5UO1IPYXOK SF5UTNavGOGvJLQcXA8tT4R AFRHXXDSAAb3PKkYUO64AEF DBYJ6WZKgUXZcfW0KCWLHTH 1NBTCBBTkQgVFJBTlNNVVJB HOBPGS6DLgYGGVcXZMreGTI oREZiTL9kDu3tCPRSRXVRK3 BwQ1GjUEWHLSSLEUOUO1vKB 1MgRElTRUFTRVxwYXIgICAg MY4mJ2QIL1rPGRevJIROA2k OUyBBUkUgVklBQkxFIFxwYX TeNIJbWT1lVa2aCMUQKYpAW W0DNBOJKIUDXPkQMLZLTNRs ciAgICAgLSBBUFBFTkRJWCB BAPTGYOUWBe0SULZZKnCidW FyXHBhclxwbGFpblxmMVxmc pAbAAgyhlngJLGnXJfkQ2jc GvWbCTVbaSdcIWbcy0EnXHH zWMSdUnrviaVdYOlfHY07PA 8eLXV5RPYUNYWeQV8uPK2nB DIwIFxwbGFpblxmMVxmczIw BBxcaaorGZIoCLcgJ8aqZnC eGCQtaHxbNMyps3BzOFDyTI ZzMjBccGFyfXtccnRmMVxzc 5OrK0FqFiJoFCohxfRsKTEx VjutwvnpLDPrWBC3fhArWEQ wNWuqGKImDYkiDo7ufUTopX lySjDgHHTeq7kzbrLFIZfoF cJmG368OTBxHUlct6ruf2Zn KQTftVWeb4N0WKUCyyppkMb 9y9qoTrViXuQ7aTApBDifN3 iaerZwcBIsL2PmcKWoeZh1x FuaG05wj6J2IlwqZ5txYWRj HUCkM1GrNI0iBNTrVvr9JZV 4THX0PJZuGAKnR6ZuAU9cIB EfzXOcFEf7v5tqtZqeKDAiB SV9e8ulFJwevuN6UX2xyx3l oPy2l8zlktCbKLWxNKAwaCE JDDPvL3BufSfoMf7cjJs5mQ xwBrdiTEI5Gem6VY8cer56h fm8lVruEOAdgubpIrG1TVag DASbmelpXEc9ZXvxNUCanXH 5LPRxkHTtS3DhNTThRD2qtk x6VTO9BHjqTIUaJcN4GGYjg FOkIYIhuUvxVMcfl413LGM8 NxXsVG6yQ9Ckk0B8jH5ygOP xCLIofKHfNkKoDEQzjt5jpU UfLRwyh9PpJND7cnG2tWHjb KZlDBRaGR22Rhcya0CpPdsz OHP5FWYzwqAvi7Wrq0gsWaM ktjGmO9srY3OjYDMwNLGjHC DmEhYubuZip5Gir8GpoDMoo Hz8d6riTJUjNROknYbik1qf FDG1AJLgZ8L4uKNxd5jjYTy xAFTjwOB5raQ1HADzfTBeD0 EhzE6dWJRcQF1gsij8s4wrF HV2DXhpRPCkBbQ6lyV6TQAu lBMnODLgqNlqYTaob941LWQ 1RyMcUIErs2NqM1SreZgsQ3 6tiLfyK98oQKVauChlkU8bt BrjdV1zCoToKfLcEMcmoDsa bGFpblxmMVxmczIwXGxhbmc dPNHiBYwaQ2qqPpCmCKVklU jqHYall8YuTJJzHDSjOykwl zIwXHBhciBJIGhhdmUgcGVy o00vSAhkdHDyWMBcYRsuFVN irIill0OnY6lrRY4qV1RxlB PqniGgzxYiSSwjMVSch5z8g BFodHepw7GwtYEfEE88agAh EYWjETH6MFXse7ypDK08pmu vKaVcqD96vcCauqZcFJKsd6 zaA1pdeRJtj6Wwp3NgvpVyZ Tlqb9RxJH1quHMcpfyrgCM7 CRUvyKPtmvCesbU1uMvkMRT mjF0qaF2fiLdgtX3tSrJhRz QlRXckHQ5yTSYsG8kblPCyN RNyFWQpB9jcNpOdaQ9jhDmo ClixvcJ3TKBwgb88 Clinical Information Crohn's 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 code = colon with complication [id number]) [K50.119]SBO (small bowel obstruction) [K56.609] Gross Description s7eytPZpTEGzxXFxAkRsLDA (test code = yBBZrc2tgOSLtyFXsYtFtXa [id number]) NcZnRuYmpcdWMxXGRlZmYwe 0cce618lWXsl0ssSBDbYnW3 oKZxNXYahORfC673UFIqKLf hs9nnb1HyUHTspHWrx5W7GX JAlqbvvRg8pUwjJ08qn6K4X ldcU4mzJLVlODTdA3BpAV4a EFMdWtt8XDX8HVX4YKPfLGE tO6VlGR7kDPDisJTwQTj6j8 hmbGovRBDqMOW5x7jsCTsei rWlSS8ttf8pzRu9h5zsvjGs SPTlJVOurTDIEIZaQ7DvrAu lWf4bkZo7mWsnPcdmNIX6Li g8YR0cyc80qge8dQadNVZth sraHfZ0WZccWJVexdpdXVu8 IIltGSRusCVdZTZbfLRwC4A iCObnRR0ekvg0VwJjMF8fwz gfUSjtULEeGKE7ArAwQBUks 9OxzwchPvJryh0dhu36NUW7 h3KhzRtgXIW6GFN2XzZfDv3 bcQEbSPBlCI4wYlGmmZNwXT Eioq97tJbaIXyuhcFebJ6aT bNsBRQpaEMgFOWkBF9ohBZd MJJmvP1neookVBBlDvJgfis aFBOjhBjtfcObYd5beXxiHV R6PKbmU9sezX9nPmJ7WMhsC 6hsnB8jKVw1SLcftDB3RCBz xB1jOL2jxfefn5hvXML3XOr hDTTclrJ6gaNwMNWsdIJzF3 WgbS14HiJsvFJmY8FjgT4rX XrpDWQfcui4NqAqSi5rsNYa mMA5WRmoWknzZUrbHAKrcjW vbnRccGduZGVjXHBsYWluXH BsYWluXGYwXGZzMjRccWxcc NzfoZ9pPeNuIgHkIZlxJA4b ZQXnW2hcrHRpMAOmKAPtK3c uDpUdnY2vuVzhRPisnqEpLS NwZWNpbWVuIEEgaXMgcmVjZ Kv6FVSetM1xJl1boUNnmX0h yYAqAMktDBB3eKPmUQZeFGJ kMAPpRA83M0YhfxDuXTmlLL wtiaQjCgJgACKuFSDpr58uy vplyHwxk9AwH0YibQ7rcDIt AG5zBYWiwbDea9EyTY8zIRY hc44zaUxqQj32LEuxd2NltW VudCAoNjYuOCBjbSBpbiBsZ W3ekAmkiVJftOYeVPSlgpHu XV3dkS3lEFOhp20gXr07SL4 aPi0dXWWrUGH4bRPuTRZ9yG IrpJRwWJEktVEeCFb4IAn0M hezC39ucN0kbXEyS2NuGFzm TV70YBKrTChwMQGfKB3vxUZ yKSBhbmQgcHJveGltYWwgY2 NxuP4mEAKfJSOfFMGot5Lot QYsiJUnRQ1bdF1lyBLweIGo GSEzRRQuSWS1xjTrvwZ7QYS zQINvIYKmQC7beaHkZYkoIw AegtQhG3Avj9JmpWYyjNpfm OJlAMJgrw08L2zwrIRjmFTy zpTpKX2zlGdjz3c0cXQ0qZA thKFhIWHfXYOwxN2aQCBly7 kqtOUpRLLcRMFxbEG3DKbnr AUxH2lfdv9rZDurFWBqQXUk cXUdVKbbLC8uNK0mENImzvY eHI4gf1JlqBVgqYRepGc6OI NjNCKllhNdbEThTC3rhlYzN LsdQyAguG9uchJyJZThtnQv bnRzIHdpdGggYSBkYXJrLWJ ml8foHDSgOTK9JP8fYESteN Wji4PlGYD5RLKnH4Odv3Xky WD1iPtqf68ej6KwRS9fUTBv AF9iWHxculRfGALdBZ16jER ojWcrSIAsu9ZbrFSqkRTkCB EmuFlez3sgTE5cCVBmXCKsO DAuMSBjbSBpbiBncmVhdGVz hWYjlY8sffAxz02fJUqrL0G 0JUHyBYBwcMoiWDHzk9JgnJ TcxUL3nQ1lWy2uhCTxHn6lP SEwx90iEIIbKSAmqw3eu3i1 KNnaTH25lXHxKTAuRVumQBN ccGFyIFRoZSBhcHBlbmRpeC GnEMNiRC0yHSV5LCXtVSHvw MOljI74MKUmt7dqQEQsI2ae VUDbFCDiHFKxLW7hiCdiTCL fVPJ4DGNjEmCngYenSX7wMA GacMQlHOKcnhgas96bv1PtE HLbcq1yYBE4pHAbROMgSSWn AY3eTP47fGPwPy9nPFhuT40 aQ1AkgIskax6jJRqmMHZsmX KdZUs0PGedTOEprpxdoYt4J BFwY8Jyd47pSIU8mfWfGVTx IWlsjEVqPGxpmX7uAA5xmVS dM8K2HOV9yrBuB7AcJCjbgZ kyAVAcrO3bvbNefDGdbB3ci CBkaWFtZXRlciAwLjIgLSAw EqPeM52yXSEslEhdZKP0aDC xTVIvl5sjNCNkA5GmMR0njI VyaWFsLiBXYWxsIHRoaWNrb tEbtxOfWJ5qVQFrUtFifULu AwQbTTOgYxGcS20zFIVpfFZ yz1TaeZS3kVGtPYNrP0Tji9 6zFCWfEHCcdHMlsSX1TOZxs L6wTZEfLGMxHdkfMFJolJUa GCDdE4Thn23nO52nHSxfkQU lPZOuOFPtXuIivw50bS4wxH EgqDC3bILhZEZrxP5bSOVhR ARmK2UewONjNBOiUmFfkLK2 NOdrK5LuXMvevKOgU7hwAJS tFOOeXWInhlUztNw3XUkbNV AkIGD1LIpxMO1eGLLnxTE9E Do1PTdvxlPcyyReHK25PCFp euYamZRaCEP3GcOzOXTmDQP vdhUxjRp1QODzNRH5qQ6fho ScUiK7BUbkEWFmOVloR2s2R RLfz6Jjy6wbLPLrh5q0mMCm lMMcMXB7HTR9KzXaCTGkECR nzcQqkEv4VXKcYUO8dS7ino XlDeZ9WKxbOBDxpZFaqQD2A KAeb5NiqFBplJxxpZr1MXNd e01flYVrqZasPElchQ5yIJk qbVLlLHWgjkTRLWV0NIWnD7 Slh42zPV8jMOBneKGiVFn1T JClKJgkL9i8OUKmCYEfIA4z vOKnHJqgy3KmRsnnCKBnmY1 fOPZpGjx7KJibXYVdsIJwq2 ZdnGV4tVJeROPfc3OcGZTkV 9Dnv97dDSTpLUEifsFodyNb MjkrNHM4FVRnbEhgOEYatqe yKYXcPy2wYC7eTMBizHLmVM QMHMV3aYGdhiZmMPFfxtKGM NAnQZ46shonvoGPQFHnBRA3 gW9qj6kgk2CtTlFVg2Hpp7G hbnQpXHBhcn0= Embedded Images (test code = 4038989195) [facility] METABOLIC PANEL (NA, K, CL, CO2, GLUCOSE, BUN, CREATININE, CA)2020-07-30 11:29:00 Test Item Value Reference Range Interpretation Comments NA (test code = 136 mmol/L 135-145 3003787722) K (test code = 3.8 mmol/L 3.5-5 Slight 2135775392) hemolysis CL (test code = 102 mmol/L 98-108 9803126151) CO2 TOTAL (test code 25 mmol/L 23-31 = 6374851964) AGAP (test code = 2-16 8920457874) BUN (test code = 2 mg/dL 7-23 L Slight 1939369702) hemolysis GLUCOSE (test code = 182 mg/dL 70-110 H 6300722124) CREATININE (test code 0.68 mg/dL 0.5-1.04 = 4096788230) CALCIUM (test code = 9.0 mg/dL 8.6-10.6 4409157316) eGFR Calculation mL/min/1.73m2 (Non-) (test code = 1024472841) eGFR Calculation mL/min/1.73m2 () (test code = 0826719986) RAUDEL (test code = RAUDEL) Association of [...] tests). Lab Interpretation Abnormal (test code = 19352-1) [facility] 11:29:00 Test Item Value Reference Range Interpretation Comments MAGNESIUM (test code = 8745570114) 1.4 mg/dL 1.7-2.4 L Lab Interpretation (test code = Abnormal 39749-2) [facility]2020-09-15 11:29:00 Test Item Value Reference Range Interpretation Comments PHOSPHORUS (test code = 0365102917) 3.6 mg/dL 2.5-5 Lab Interpretation (test code = Normal 77758-7) [facility]XR [id number] 14:01:19EXAM: XR KUB 07/29/2020 4:42 AM. INDICATION: [...] reviewed this study and agree with theabove report.[facility] (NA, K, CL, CO2, GLUCOSE, BUN, CREATININE, CA)2020-07-29 12:26:00 Test Item Value Reference Range Interpretation Comments NA (test code = 137 mmol/L 135-145 4661906745) K (test code = 3.4 mmol/L 3.5-5 L 9289989887) CL (test code = 102 mmol/L 98-108 2432377250) CO2 TOTAL (test code = 31 mmol/L 23-31 0261127933) AGAP (test code = 2-16 5104529752) BUN (test code = 3 mg/dL 7-23 L 5163062361) GLUCOSE (test code = 118 mg/dL 70-110 H 8663287908) CREATININE (test code = 0.81 mg/dL 0.5-1.04 9317294634) CALCIUM (test code = 9.4 mg/dL 8.6-10.6 4707962712) eGFR Calculation mL/min/1.73m2 (Non-) (test code = 4237652106) eGFR Calculation mL/min/1.73m2 () (test code = 0000138032) RAUDEL (test code = RAUDEL) Association of [...] tests). Lab Interpretation Abnormal (test code = 19332-3) [facility]2020-09-14 11:05:00 Test Item Value Reference Range Interpretation Comments Fibrinogen (test code = 1089 mg/dL 167-453 H 8071305433) Lab Interpretation (test code = Abnormal 47284-3) [facility]landsaPTT2020-09-14 10:58:00 Test Item Value Reference Range Interpretation Comments APTT Patient (test code = See_Comment [ Automated message] 3173-2) The system [employer] generated this result transmitted ref erence range: 26 - 36 Seconds. The re ference range was not u sed to interpret this result as normal/abnor mal. Lab Interpretation (test Normal code = 87215-4) [facility]landsPROTHROMBIN TIME / [id number] 10:58:00 Test Item Value Reference Range Interpretation Comments PROTIME PATIENT (test See_Comment [Auto mated message] code = 5964-2) The system [employer] generated this result transmitted ref erence range: 10.1 - 1 2.6 Seconds. The re ference range was not u sed to interpret this result as normal/abnor mal. INR (test code = 6301-6) Nor mal INR <1.1; Warfarin Therap eutic range 2.0 to 3. 0 or 2.5 to 3.5, dep ending upon the indica tions. Lab Interpretation (test Normal code = 34307-5) [facility]landsCBC WITHOUT [id number] 10:54:00 Test Item Value Reference Range Interpretation Comments WBC (test code = 6690-2) See_Comment [A utomated message] The system [employer] generated this result transmit carl reference range : 4.30 - 11.10 10*3/?L. The reference range was not used to interpret this result as normal/abnormal . RBC (test code = 789-8) See_Comment L [Au tomated message] The system [employer] generated this result transmit carl reference range [...] 777-3) See_Comment [Au tomated message] The system [employer] generated this result transmit carl reference range : 166 - 358 10*3/?L. The reference range was not used to interpret this result as normal/abnormal . MPV (test code = 10.0 fL 9.5-12.9 52062-7) RDW-CV (test code = 12.0 % 12-15.5 788-0) RDW-SD (test code = 43.2 fL 39-49.9 68490-7) NRBC x10^3 (test code = <0.01 See_Comment [Au tomated message] 0927528749) The system [employer] generated this result transmit carl reference range : 10*3/?L. The reference range was not used to interpret this result as normal/abnormal . NRBC/100 WBC (test code See_Comment [Au tomated message] = 9441222957) The system [employer] generated this result transmit carl reference range : 0.0 - 10.0 /100 WBC s. The reference r madelin was not used to interpret this result as normal/abnormal . IPF % (test code = 3882162812) Lab Interpretation (test Abnormal code = 25929-7) [facility]landsBL[facility] CULTURE [id number] 22:01:00 Test Item Value Reference Range Interpretation Comments Blood Culture-Aerobic No organisms No growth Previo us (test code = 70392-5) isolated prelim inary verified result was Culture [...] Culture-Anaerobic isolated preliminar y (test code = 76785-3) verifi ed result was Culture In Progress [...] CDT Lab Interpretation Normal (test code = 38558-4) [facility] [id number] 22:01:00 Test Item Value Reference Range Interpretation Comments Blood Culture-Aerobic No organisms No growth Previo us (test code = 44802-1) isolated prelim inary verified result was Culture [...] Culture-Anaerobic isolated preliminar y (test code = 32212-5) verifi ed result was Culture In Progress [...] CDT Lab Interpretation Normal (test code = 06501-3) [facility] METABOLIC PANEL (NA, K, CL, CO2, GLUCOSE, BUN, CREATININE, CA)2020-07-28 12:34:00 Test Item Value Reference Range Interpretation Comments NA (test code = 135 mmol/L 135-145 7855309299) K (test code = 3.6 mmol/L 3.5-5 0511861168) CL (test code = 105 mmol/L 98-108 3121634629) CO2 TOTAL (test code = 24 mmol/L 23-31 3721659219) AGAP (test code = 2-16 1082668539) BUN (test code = 3 mg/dL 7-23 L 3889221631) GLUCOSE (test code = 132 mg/dL 70-110 H 4573861517) CREATININE (test code = 0.68 mg/dL 0.5-1.04 4582866496) CALCIUM (test code = 8.6 mg/dL 8.6-10.6 7787639283) eGFR Calculation mL/min/1.73m2 (Non-) (test code = 5607178801) eGFR Calculation mL/min/1.73m2 () (test code = 4881732718) RAUDEL (test code = RAUDEL) Association of [...] tests). Lab Interpretation Abnormal (test code = 48694-0) [facility] WITHOUT [id number] 10:46:00 Test Item Value Reference Range Interpretation Comments WBC (test code = 6690-2) See_Comment [A utomated message] The system [employer] generated this result transmit carl reference range : 4.30 - 11.10 10*3/?L. The reference range was not used to interpret this result as normal/abnormal . RBC (test code = 789-8) See_Comment L [Au tomated message] The system [employer] generated this result transmit carl reference range [...] 777-3) See_Comment [Au tomated message] The system [facility] generated this result transmit carl reference range : 166 - 358 10*3/?L. The reference range was not used to interpret this result as normal/abnormal . MPV (test code = 10.0 fL 9.5-12.9 88937-2) RDW-CV (test code = 12.0 % 12-15.5 788-0) RDW-SD (test code = 42.5 fL 39-49.9 43089-0) NRBC x10^3 (test code = <0.01 See_Comment [Au tomated message] 4169936144) The system [employer] generated this result transmit carl reference range : 10*3/?L. The reference range was not used to interpret this result as normal/abnormal . NRBC/100 WBC (test code See_Comment [Au tomated message] = 6603058690) The system [facility] generated this result transmit carl reference range : 0.0 - 10.0 /100 WBC s. The reference r madelin was not used to interpret this result as normal/abnormal . IPF % (test code = 9208117819) Lab Interpretation (test Abnormal code = 02321-4) [facility] METABOLIC PANEL (NA, K, CL, CO2, GLUCOSE, BUN, CREATININE, CA)2020-07-27 11:40:00 Test Item Value Reference Range Interpretation Comments NA (test code = 134 mmol/L 135-145 L 0525969804) K (test code = 3.7 mmol/L 3.5-5 2566484261) CL (test code = 104 mmol/L 98-108 3902732766) CO2 TOTAL (test code = 29 mmol/L 23-31 7075873903) AGAP (test code = 2-16 L 0961163766) BUN (test code = 7 mg/dL 7-23 6660225907) GLUCOSE (test code = 169 mg/dL 70-110 H 7041954550) CREATININE (test code = 0.63 mg/dL 0.5-1.04 7164023611) CALCIUM (test code = 8.3 mg/dL 8.6-10.6 L 5705608545) eGFR Calculation mL/min/1.73m2 (Non-) (test code = 3898391884) eGFR Calculation mL/min/1.73m2 () (test code = 2351548400) RAUDEL (test code = RAUDEL) Association of [...] tests). Lab Interpretation Abnormal (test code = 50603-7) [facility] WITHOUT [id number] 11:18:00 Test Item Value Reference Range Interpretation Comments WBC (test code = 6690-2) See_Comment H [A utomated message] The system [employer] generated this result transmit carl reference range : 4.30 - 11.10 10*3/?L. The reference range was not used to interpret this result as normal/abnormal . RBC (test code = 789-8) See_Comment L [Au tomated message] The system [employer] generated this result transmit carl reference range [...] 777-3) See_Comment [Au tomated message] The system [employer] generated this result transmit carl reference range : 166 - 358 10*3/?L. The reference range was not used to interpret this result as normal/abnormal . MPV (test code = 10.8 fL 9.5-12.9 28775-5) RDW-CV (test code = 11.9 % 12-15.5 L 788-0) RDW-SD (test code = 43.5 fL 39-49.9 68087-9) NRBC x10^3 (test code = <0.01 See_Comment [Au tomated message] 4945640330) The system [employer] generated this result transmit carl reference range : 10*3/?L. The reference range was not used to interpret this result as normal/abnormal . NRBC/100 WBC (test code See_Comment [Au tomated message] = 6884128540) The system [employer] generated this result transmit carl reference range : 0.0 - 10.0 /100 WBC s. The reference r madelin was not used to interpret this result as normal/abnormal . IPF % (test code = 0053278339) Lab Interpretation (test Abnormal code = 68571-7) [facility] METABOLIC PANEL (NA, K, CL, CO2, GLUCOSE, BUN, CREATININE, CA)2020-07-26 09:39:00 Test Item Value Reference Range Interpretation Comments NA (test code = 136 mmol/L 135-145 2816287127) K (test code = 3.9 mmol/L 3.5-5 7729390128) CL (test code = 104 mmol/L 98-108 9382863796) CO2 TOTAL (test code = 28 mmol/L 23-31 7127180677) AGAP (test code = 2-16 8264661378) BUN (test code = 11 mg/dL 7-23 3913936850) GLUCOSE (test code = 136 mg/dL 70-110 H 6927369425) CREATININE (test code = 0.84 mg/dL 0.5-1.04 1416214078) CALCIUM (test code = 8.2 mg/dL 8.6-10.6 L 6737755058) eGFR Calculation mL/min/1.73m2 (Non-) (test code = 5596953955) eGFR Calculation mL/min/1.73m2 () (test code = 2877262022) RAUDEL (test code = RAUDEL) Association of [...] tests). Lab Interpretation Abnormal (test code = 22798-7) [facility] WITHOUT [id number] 08:44:00 Test Item Value Reference Range Interpretation Comments WBC (test code = 6690-2) See_Comment [A utomated message] The system [employer] generated this result transmit carl reference range : 4.30 - 11.10 10*3/?L. The reference range was not used to interpret this result as normal/abnormal . RBC (test code = 789-8) See_Comment L [Au tomated message] The system [employer] generated this result transmit carl reference range [...] See_Comment L [Au tomated message] The system [employer] generated this result transmit carl reference range : 166 - 358 10*3/?L. The reference range was not used to interpret this result as normal/abnormal . MPV (test code = 11.0 fL 9.5-12.9 98699-8) RDW-CV (test code = 11.8 % 12-15.5 L 788-0) RDW-SD (test code = 42.4 fL 39-49.9 43613-1) NRBC x10^3 (test code = <0.01 See_Comment [Au tomated message] 9084972635) The system [employer] generated this result transmit carl reference range : 10*3/?L. The reference range was not used to interpret this result as normal/abnormal . NRBC/100 WBC (test code See_Comment [Au tomated message] = 3758498457) The system [employer] generated this result transmit carl reference range : 0.0 - 10.0 /100 WBC s. The reference r madelin was not used to interpret this result as normal/abnormal . IPF % (test code = 8185780873) Lab Interpretation (test Abnormal code = 54118-2) [facility] (NA, K, CL, CO2, GLUCOSE, BUN, CREATININE, CA)2020-07-26 00:48:00 Test Item Value Reference Range Interpretation Comments NA (test code = 137 mmol/L 135-145 0506210925) K (test code = 4.5 mmol/L 3.5-5 0846435013) CL (test code = 102 mmol/L 98-108 9738575687) CO2 TOTAL (test code = 28 mmol/L 23-31 2489246327) AGAP (test code = 2-16 8746844753) BUN (test code = 13 mg/dL 7-23 0169047186) GLUCOSE (test code = 165 mg/dL 70-110 H 1483930719) CREATININE (test code = 0.92 mg/dL 0.5-1.04 6009096827) CALCIUM (test code = 8.5 mg/dL 8.6-10.6 L 0321021545) eGFR Calculation mL/min/1.73m2 (Non-) (test code = 4682763632) eGFR Calculation mL/min/1.73m2 () (test code = 1769138262) RAUDEL (test code = RAUDEL) Association of [...] tests). Lab Interpretation Abnormal (test code = 18824-7) [facility]2020-09-11 00:48:00 Test Item Value Reference Range Interpretation Comments MAGNESIUM (test code = 2757045821) 1.5 mg/dL 1.7-2.4 L Lab Interpretation (test code = Abnormal 11087-2) [facility]landsPROTHROMBIN TIME / [id number] 00:29:00 Test Item Value Reference Range Interpretation Comments PROTIME PATIENT (test See_Comment H [Auto mated message] code = 5964-2) The system [employer] generated this result transmitted ref erence range: 10.1 - 1 2.6 Seconds. The reference range was not used to int erpret this result as normal/abnormal . INR (test code = 6301-6) Nor mal INR <1.1; Warfarin Therap eutic range 2.0 to 3. 0 or 2.5 to 3.5, dep ending upon the indica tions. Lab Interpretation (test Abnormal code = 21343-5) [facility]aPTT2020-09-11 00:29:00 Test Item Value Reference Range Interpretation Comments APTT Patient (test code = See_Comment [ Automated message] 3173-2) The system [employer] generated this result transmitted ref erence range: 26 - 36 Seconds. The re ference range was not u sed to interpret this result as normal/abnor mal. Lab Interpretation (test Normal code = 43682-7) [facility] WITHOUT [id number] 00:24:00 Test Item Value Reference Range Interpretation Comments WBC (test code = 6690-2) See_Comment H [A utomated message] The system [employer] generated this result transmit carl reference range : 4.30 - 11.10 10*3/?L. The reference range was not used to interpret this result as normal/abnormal . RBC (test code = 789-8) See_Comment L [Au tomated message] The system [employer] generated this result transmit carl reference range [...] 777-3) See_Comment [Au tomated message] The system [employer] generated this result transmit carl reference range : 166 - 358 10*3/?L. The reference range was not used to interpret this result as normal/abnormal . MPV (test code = 10.8 fL 9.5-12.9 83357-0) RDW-CV (test code = 12.0 % 12-15.5 788-0) RDW-SD (test code = 44.0 fL 39-49.9 42463-5) NRBC x10^3 (test code = <0.01 See_Comment [Au tomated message] 2864156134) The system [employer] generated this result transmit carl reference range : 10*3/?L. The reference range was not used to interpret this result as normal/abnormal . NRBC/100 WBC (test code See_Comment [Au tomated message] = 7219193833) The system [employer] generated this result transmit carl reference range : 0.0 - 10.0 /100 WBC s. The reference r madelin was not used to interpret this result as normal/abnormal . IPF % (test code = 0321285943) Lab Interpretation (test Abnormal code = 09074-6) [facility] METABOLIC PANEL (NA, K, CL, CO2, GLUCOSE, BUN, CREATININE, CA)2020-07-25 12:05:00 Test Item Value Reference Range Interpretation Comments NA (test code = 137 mmol/L 135-145 0311263993) K (test code = 4.0 mmol/L 3.5-5 6876502714) CL (test code = 104 mmol/L 98-108 1408834331) CO2 TOTAL (test code = 28 mmol/L 23-31 5508453259) AGAP (test code = 2-16 3876606583) BUN (test code = 13 mg/dL 7-23 3179081064) GLUCOSE (test code = 207 mg/dL 70-110 H 4229760320) CREATININE (test code = 0.79 mg/dL 0.5-1.04 5075210699) CALCIUM (test code = 8.5 mg/dL 8.6-10.6 L 6408674377) eGFR Calculation mL/min/1.73m2 (Non-) (test code = 9448785762) eGFR Calculation mL/min/1.73m2 () (test code = 0267528007) RAUDEL (test code = RAUDEL) Association of [...] tests). Lab Interpretation Abnormal (test code = 76659-6) [facility] WITHOUT [id number] 12:02:00 Test Item Value Reference Range Interpretation Comments WBC (test code = 6690-2) See_Comment H [A utomated message] The system [employer] generated this result transmit carl reference range : 4.30 - 11.10 10*3/?L. The reference range was not used to interpret this result as normal/abnormal . RBC (test code = 789-8) See_Comment L [Au tomated message] The system [employer] generated this result transmit carl reference range [...] 777-3) See_Comment [Au tomated message] The system [employer] generated this result transmit carl reference range : 166 - 358 10*3/?L. The reference range was not used to interpret this result as normal/abnormal . MPV (test code = 10.9 fL 9.5-12.9 98604-9) RDW-CV (test code = 12.1 % 12-15.5 788-0) RDW-SD (test code = 43.3 fL 39-49.9 95695-4) NRBC x10^3 (test code = <0.01 See_Comment [Au tomated message] 9462338822) The system [employer] h generated this result transmit carl reference range : 10*3/?L. The reference range was not used to interpret this result as normal/abnormal . NRBC/100 WBC (test code See_Comment [Au tomated message] = 7535278987) The system [employer] generated this result transmit carl reference range : 0.0 - 10.0 /100 WBC s. The reference r madelin was not used to interpret this result as normal/abnormal . IPF % (test code = 0103163649) Lab Interpretation (test Abnormal code = 83960-8) [facility]landsABORH [id number] 08:01:35 Test Item Value Reference Range Interpretation Comments ABO & RH (test code A Positive Performe d at [facility] = 20) Laboratory [facility] Blood [facility] s [address]Bdmb Free: [phone] A No. [id number] [facility]Type and Screen - ONCE [id number] 05:04:45 Test Item Value Reference Range Interpretation Comments ABO & RH (test code A POSITIVE Performe d at [facility] = 20) Laboratory [facility] s [address]Odhs Free: [phone] A No. [id number] IAT (test code = Negative Performed a t [facility] 1185) Laboratory [facility] Blood [facility] s [address]Pxmt Free: [phone] A No. [id number] [facility]XR ABDOMEN 1 [id number] 13:39:15EXAM: XR ABDOMEN 1 VW 07/24/2020 1:46 [...] reviewed this study and agree with theabove report.[facility], Radiant Results Inft User - 07/24/2020 8:40 [...] Luis Sanchez reviewed this study and agree.Shahriar Caabn MD., have reviewed this study and agree with theabove report.[facility] (NA, K, CL, CO2, GLUCOSE, BUN, CREATININE, CA) 2020-07-24 08:29:00 Test Item Value Reference Range Interpretation Comments NA (test code = 137 mmol/L 135-145 0796700140) K (test code = 4.1 mmol/L 3.5-5 Slight 3171688964) hemolysis CL (test code = 102 mmol/L 98-108 4860083942) CO2 TOTAL (test code 24 mmol/L 23-31 = 4968271340) AGAP (test code = 2-16 3505122667) BUN (test code = 19 mg/dL 7-23 Slight 3528868591) hemolysis GLUCOSE (test code = 170 mg/dL 70-110 H 8555248973) CREATININE (test code 0.93 mg/dL 0.5-1.04 = 4227164609) CALCIUM (test code = 8.9 mg/dL 8.6-10.6 3067686493) eGFR Calculation mL/min/1.73m2 (Non-) (test code = 8951394692) eGFR Calculation mL/min/1.73m2 () (test code = 5059963111) RAUDEL (test code = RAUDEL) Association of [...] tests). Lab Interpretation Abnormal (test code = 63464-6) [facility] WITHOUT [id number] 08:27:00 Test Item Value Reference Range Interpretation Comments WBC (test code = See_Comment H [Automated message] 6690-2) The system [employer] generated this result transmitted ref erence range: 4.30 - 1 1.10 10*3/?L. The reference range was not used to int erpret this result as normal/abnormal . RBC (test code = 789-8) See_Comment [Au tomated message] The system [employer] generated this result transmitted ref erence range: [...] 777-3) See_Comment [Au tomated message] The system [employer] generated this result transmitted ref erence range: 166 - 35 8 10*3/?L. The reference range was not used to int erpret this result as normal/abnormal . MPV (test code = 11.0 fL 9.5-12.9 69057-4) RDW-CV (test code = 12.0 % 12-15.5 788-0) RDW-SD (test code = 41.5 fL 39-49.9 18790-4) NRBC x10^3 (test code = <0.01 See_Comment [Au tomated message] 8595146224) The system [employer] generated this result transmitted ref erence range: 10*3/?L. The reference range was not used to int erpret this result as normal/abnormal . NRBC/100 WBC (test code See_Comment [Au tomated message] = 5761686877) The system [facility] generated this result transmitted ref erence range: 0.0 - 10 .0 /100 WBCs. The reference range was not used to int erpret this result as normal/abnormal . IPF % (test code = 5.7 % 1.3-7.7 Platelet count 6988979375) measured by fluorescence me thod. Lab Interpretation Abnormal (test code = 38785-8) [facility]OVID[facility] (ID NOW RAPID TESTING)2020-07-24 01:08:00 Test Item Value Reference Range Interpretation Comments SARS-CoV-2 Rapid ID NOW Not Detected Not Detected (test code = 06825-2) RAUDEL (test code = RAUDEL) ID NOW COVID-19 Assay is an isothermal nucleic acid amplification test intended for the qualitative detection of nucleic acid from SARS-CoV-2 viral RNA in nasopharyngeal (MANAGER MORTGAGE) specimens. It is used under Emergency Use [...] indicated. Lab Interpretation Normal (test code = 91297-1) [facility]landsL[facility] Acid Whole [id number] 00:34:00 Test Item Value Reference Range Interpretation Comments LACTIC ACID (test code = 3.03 mmol/L 4169210435) [facility]landsLactic Acid Whole [id number] 21:59:00 Test Item Value Reference Range Interpretation Comments LACTIC ACID (test code = 2.30 mmol/L 3515647938) [place] [facility] W [id number] 21:22:06CT Abdomen and Pelvis with intravenous contrast. [...] however, findings are not suggestive ofacute appendicitis. [facility] Metabolic Panel (NA, K, CL, CO2, GLUCOSE, BUN, CREATININE, CA)2020-07-23 20:11:00 Test Item Value Reference Range Interpretation Comments NA (test code = 137 mmol/L 135-145 6774002367) K (test code = 3.3 mmol/L 3.5-5 L 5097299606) CL (test code = 97 mmol/L 98-108 L 2415547338) CO2 TOTAL (test code = 25 mmol/L 23-31 4977441537) AGAP (test code = 2-16 1578145201) BUN (test code = 18 mg/dL 7-23 4724623322) GLUCOSE (test code = 236 mg/dL 70-110 H 5038169718) CREATININE (test code = 0.94 mg/dL 0.5-1.04 1048076130) CALCIUM (test code = 10.4 mg/dL 8.6-10.6 9090433332) eGFR Calculation mL/min/1.73m2 (Non-) (test code = 6367486185) eGFR Calculation mL/min/1.73m2 () (test code = 7090155168) RAUDEL (test code = RAUDEL) Association of [...] tests). Lab Interpretation Abnormal (test code = 37020-8) [place] [facility] (ALB, T.PRO, BILI T, BU/BC, ALT, AST, ALK PHOS)2020-07-23 20:11:00 Test Item Value Reference Range Interpretation Comments TOTAL BILI (test code = 6518707579) 1.0 mg/dL 0.1-1.1 BILI UNCON (test code = 9144127641) 1.0 mg/dL 0.1-1.1 BILI CONJ (test code = 1661043640) 0.0 mg/dL 0-0.3 T PROTEIN (test code = 0583190958) 8.9 g/dL 6.3-8.2 H ALBUMIN (test code = 0810933213) 4.7 g/dL 3.5-5 ALK PHOS (test code = 9582223776) 77 U/L 34-122 ALTv (test code = 1742-6) 19 U/L 5-35 AST(SGOT) (test code = 0118053226) 24 U/L 13-40 Lab Interpretation (test code = Abnormal 35812-7) [place] [facility]Lip[facility] [id number] 20:11:00 Test Item Value Reference Range Interpretation Comments LIPASE (test code = 3778549793) 26 U/L 0-220 Lab Interpretation (test code = Normal 35675-1) [place] [facility] with [id number] 19:48:00 Test Item Value Reference Range Interpretation Comments WBC (test code = See_Comment H [Automated 6690-2) message] The system which generated this result transmit carl reference range : 4.30 - 11.10 10*3/?L. The reference range was not used to interpret this result as normal/abnormal . RBC (test code = See_Comment H [Automated 939-8) message] The system which generated this result [...] RDW-SD (test code = 39.7 fL 39-49.9 92203-8) RDW-CV (test code = 11.5 % 12-15.5 L 788-0) PLT (test code = See_Comment [Automated 777-3) message] The system which generated this result transmit carl reference range : 166 - 358 10*3/ ?L. The reference range was not u sed to interpret th is result as normal/abnormal . MPV (test code = 10.4 fL 9.5-12.9 82596-2) NRBC/100 WBC (test See_Comment [Automat ed code = 0472040011) message] The system which generated this result transmit carl reference range : 0.0 - 10.0 /100 WBCs. The reference range was not used to interpret this result as normal/abnormal . NRBC x10^3 (test code <0.01 See_Comment [Auto mated = 0978981394) message] The system which generated this result transmit carl reference range : 10*3/?L. The reference range was not used to interpret this result as normal/abnormal . GRAN MAT (NEUT) % 90.3 % (test code = 770-8) IMM GRAN % (test code 0.50 % = 4518060884) LYMPH % (test code = 5.4 % 736-9) MONO % (test code = 3.7 % 5905-5) EOS % (test code = 0.0 % 713-8) BASO % (test code = 0.1 % 706-2) GRAN MAT x10^3(ANC) 12.67 10*3/uL 1.88-7.09 H (test code = 4709840290) IMM GRAN x10^3 (test 0.07 10*3/uL 0-0.06 H code = 3119748595) LYMPH x10^3 (test code 0.76 10*3/uL 1.32-3.29 L = 731-0) MONO x10^3 (test code 0.52 10*3/uL 0.33-0.92 = 742-7) EOS x10^3 (test code = <0.03 0.03-0.39 L 711-2) BASO x10^3 (test code <0.03 0.01-0.07 = 704-7) Lab Interpretation Abnormal (test code = 83909-4) [place] [facility]inalysis2020-09-08 19:37:00 Test Item Value Reference Range Interpretation Comments APPEARANCE (test code = Hazy Clear A 5216925713) COLOR (test code = Kathleen Yellow A 9783039313) PH (test code = 4.8-8.0 1053452833) SP GRAVITY (test code = 1.003-1.030 H 9797871509) GLU U QUAL (test code = 50 mg/dL Normal A 9546220087) BLOOD (test code = Negative Negative 1347329826) KETONES (test code = 80 mg/dL Negative A 8547421613) PROTEIN (test code = 100 mg/dL Negative A 2887-8) UROBILIN (test code = Normal Normal 0471796020) BILIRUBIN (test code = Negative Negative 4980825008) NITRITE (test code = Negative Negative 0690911802) LEUK CHELY (test code = Negative Negative 6594257346) RBC/HPF (test code = See_Comment [Autom ated message] 4382106197) The system [employer] generated this result transmit carl reference range : 0 - 3 HPF. The refe rence range was not u sed to interpret th is result as normal/abnormal . WBC/HPF (test code = See_Comment [Autom ated message] 1296043958) The system [employer] generated this result transmit carl reference range : 0 - 5 HPF. The refe rence range was not u sed to interpret th is result as normal/abnormal . BACTERIA (test code = Few Negative A 4926628555) MUCOUS (test code = Marked Negative LPF A 5235686361) SQ EPITH (test code = HPF 3663064515) Lab Interpretation (test Abnormal code = 89413-7) [place] [facility] W [id number] 18:53:08CT Abdomen and Pelvis with intravenous contrast. [...] acute intra- abdominal or intrapelvic pathology detected. Vtmb, Radiant Results Inft User - 06/15/2019 1:53 [...] tissues: Unremarkable.CONCLUSION: No acute intra-abdominalor intrapelvic pathology detected.[facility] (NA, K, CL, CO2, GLUCOSE, BUN, CREATININE, CA)2019-06-15 18:17:00 Test Item Value Reference Range Interpretation Comments NA (test code = 140 mmol/L 135-145 4759414174) K (test code = 3.5 mmol/L 3.5-5 1167212855) CL (test code = 105 mmol/L 98-108 7202573657) CO2 TOTAL (test code = 25 mmol/L 23-31 8344199749) AGAP (test code = 2-16 8996279139) BUN (test code = 10 mg/dL 7-23 7359393778) GLUCOSE (test code = 162 mg/dL 70-110 H 8303166541) CREATININE (test code = 0.81 mg/dL 0.5-1.04 4760810888) CALCIUM (test code = 8.7 mg/dL 8.6-10.6 1591143227) eGFR Calculation mL/min/1.73m2 (Non-) (test code = 3569602810) eGFR Calculation mL/min/1.73m2 () (test code = 1953706159) RAUDEL (test code = RAUDEL) Association of [...] tests). Lab Interpretation Abnormal (test code = 51137-0) [place] [facility] (ALB, T.PRO, BILI T, BU/BC, ALT, AST, ALK PHOS)2019-06-15 18:17:00 Test Item Value Reference Range Interpretation Comments TOTAL BILI (test code = 8132860497) 0.7 mg/dL 0.1-1.1 BILI UNCON (test code = 3740430953) 0.6 mg/dL 0.1-1.1 BILI CONJ (test code = 0415670381) 0.0 mg/dL 0-0.3 T PROTEIN (test code = 1137825866) 7.7 g/dL 6.3-8.2 ALBUMIN (test code = 0110472412) 4.2 g/dL 3.5-5 ALK PHOS (test code = 2347687265) 59 U/L 34-122 ALT(SGPT) (test code = 7748645885) 16 U/L 9-51 AST(SGOT) (test code = 9945528271) 20 U/L 13-40 Lab Interpretation (test code = Normal 74359-9) [place] [facility] [id number] 18:17:00 Test Item Value Reference Range Interpretation Comments LIPASE (test code = 8413822255) 48 U/L 0-220 Lab Interpretation (test code = Normal 53522-3) [place] [facility]lands[facility]inalysis2019-08-01 18:06:00 Test Item Value Reference Range Interpretation Comments APPEARANCE (test code Slightly Hazy Clear A = 7503195330) COLOR (test code = Yellow Yellow 8821006062) PH (test code = 4.8-8.0 1938440487) SP GRAVITY (test code >=1.030 1.003-1.030 = 3232323219) GLU U QUAL (test code Negative Negative = 6908778908) BLOOD (test code = Negative Negative 0325999612) KETONES (test code = Negative Negative 5865002815) PROTEIN (test code = Negative Negative 2887-8) UROBILIN (test code = 0.2 mg/dL See_Comment [Auto mated 0344576432) message] The system which generated this result transmit carl reference range : 0-1.0 mg/dL. Th e reference range was not used to interpret this result as normal/abnormal . BILIRUBIN (test code = Negative Negative 6218025439) NITRITE (test code = Negative Negative 8855452274) LEUK CHELY (test code Negative Negative = 3126032294) RBC/HPF (test code = See_Comment [Autom ated 0630315922) message] The system which generated this result transmit carl reference range : 0 - 3 HPF. The reference range was not used to interpret this result as normal/abnormal . WBC/HPF (test code = See_Comment [Autom ated 0767584716) message] The system which generated this result transmit carl reference range : 0 - 5 HPF. The reference range was not used to interpret this result as normal/abnormal . BACTERIA (test code = Moderate Negative A 0884008953) MUCOUS (test code = Moderate Negative LPF A 4173373213) SQ EPITH (test code = HPF 1482696900) CA OXALATE (test code See_Comment H [Auto mated = 3309100172) message] The system which generated this result transmit carl reference range : <=1 HPF. The reference range was not used to interpret this result as normal/abnormal . Lab Interpretation Abnormal (test code = 33992-4) [place] [facility]landsLactic Acid Whole [id number] 17:57:00 Test Item Value Reference Range Interpretation Comments LACTIC ACID (test code = 1.94 mmol/L 0.5-2.2 0696527010) Lab Interpretation (test code = Normal 95919-4) [place] [facility] WITH [id number] 17:56:00 Test Item Value Reference Range Interpretation [...] RDW-SD (test code = 41.2 fL 39-49.9 79983-7) RDW-CV (test code = 11.7 % 12-15.5 L 788-0) PLT (test code = See_Comment [Automated 777-3) message] The sy stem which generated this result transmitted reference range : 166 - 358 10*3/ ?L. The reference r madelin was not used to interpret this result as normal/abnormal . MPV (test code = 10.0 fL 9.5-12.9 03051-9) NRBC/100 WBC (test See_Comment [Automat ed code = 3624959266) message] The system which generated this result transmitted reference range : 0.0 - 10.0 /100 WBCs. The refer ence range was not u sed to interpret th is result as normal/abnormal . NRBC x10^3 (test code <0.01 See_Comment [Auto mated = 3166485711) message] The s ystem which generated this result transmitted reference range : 10*3/?L. The reference range was not used to interpret this result as normal/abnormal . GRAN MAT (NEUT) % 72.9 % (test code = 770-8) IMM GRAN % (test code 0.10 % = 4510004588) LYMPH % (test code = 21.6 % 736-9) MONO % (test code = 4.3 % 5905-5) EOS % (test code = 0.7 % 713-8) BASO % (test code = 0.4 % 706-2) GRAN MAT x10^3(ANC) 4.88 10*3/uL 1.88-7.09 (test code = 9262620624) IMM GRAN x10^3 (test <0.03 0-0.06 code = 8353102204) LYMPH x10^3 (test code 1.45 10*3/uL 1.32-3.29 = 731-0) MONO x10^3 (test code 0.29 10*3/uL 0.33-0.92 L = 742-7) EOS x10^3 (test code = 0.05 10*3/uL 0.03-0.39 711-2) BASO x10^3 (test code 0.03 10*3/uL 0.01-0.07 = 704-7) Lab Interpretation Abnormal (test code = 58417-4) [place] [facility]PO[facility] Test, [id number] 17:24:00 Test Item Value Reference Range Interpretation Comments POCT PREG (test code = 1605) negative On board controls acceptable with present C Line (test code = 3574) POCT PREG LOT # (test code = 3575) [id number] POCT PREG TEST DATE (test 11/14/20 code = 3576) Lab Interpretation (test code = Normal 83270-5) [facility]"
[2022-03-10] MEDS ORDERED: PROMETHAZINE INJ 25 MG/ML AMP ONE ×2 (18:31→20:18)
[2022-03-10] MEDS ORDERED: NA CHLORIDE 0.9% 1,000 ML ONE (18:32)
[2022-03-10] MEDS ORDERED: HYDROMORPHONE HCL 1 MG/ML INJ ONE ×2 (18:32→20:18)
[2022-03-10] MEDS ORDERED: FAMOTIDINE 20 MG/2 ML VIAL IV ONE (18:32)
[2022-03-10 18:37] LABS: Absolute Lymphocytes (CBC) 1.3 K/uL (0.7-4.9); Hematocrit 43.5 % (36.0-45.0); Lymphocytes % 16.3 % (15.3-44.8); MPV 8.2 fL (7.6-11.3)
[2022-03-10] MEDS ORDERED: DIPHENHYDRAMINE 50 MG/ML VIAL ONE ×2 (18:49→20:18)
[2022-03-10 18:54] LABS: Albumin 4.2 g/dL (3.4-5.0); Bilirubin Total 1.7 mg/dL (0.2-1.0); Potassium 3.6 mmol/L (3.5-5.1); Protein, Total 9.1 g/dL (6.4-8.2)
--- NOTE | 2022-03-10 19:53 | RAD REPORT ---
EXAM DESCRIPTION: CTAbdomen Pelvis W Contrast - 03/10/2022 7:35 pm CLINICAL HISTORY: LLQ abdominal pain COMPARISON: Abdomen Pelvis W Contrast dated 11/22/2021; Abdomen Pelvis W Contrast dated 10/31/2021 ; Abdomen Pelvis W Contrast dated 08/02/2021; Abdomen Pelvis W Contrast dated 10/24/2020 TECHNIQUE: CT of the abdomen and pelvis was performed. All CT scans are performed using dose optimization technique as appropriate and may include automated exposure control or mA/KV adjustment according to patient size. FINDINGS: Lower chest: No acute abnormality. Liver: No acute abnormality or suspicious lesions. Biliary: No biliary ductal dilatation. Stomach: No significant focal abnormality. Duodenum: No significant focal abnormality. Pancreas: No significant abnormality. Spleen: No significant abnormality. Adrenal: No suspicious lesions. Kidney/ureter: No hydronephrosis. No renal calculi. Retroperitoneum: No retroperitoneal adenopathy. Vascular: No aneurysm. Bowel: Status post ileocecectomy. Patulous small bowel noted. No evidence of active inflammation, how ever.. Absent appendix. Peritoneum: Small volume of pelvic free fluid. Bladder: Grossly unremarkable. Reproductive: No adnexal masses. Bones: No acute fracture. Other: n/a IMPRESSION: No acute intra-abdominal or pelvic finding.
--- NOTE | 2022-03-10 20:07 | EDPHYS ---
Physician Documentation [facility] Name: Jessica Stearns Age: 46 yrs Sex: Female : 1975 Arrival Date: 03/10/2022 Time: 17:41 Bed 18 Private MD: ED Physician Gerry Torres HPI: 03/10 18:29 This 46 yrs old Black Female presents to ER via Wheelchair with complaints of Crohn's pm1 Flare up. 18:29 The patient presents with abdominal pain that is diffuse. Onset: The symptoms/episode pm1 began/occurred 2 day(s) ago. The symptoms do not radiate. Associated signs and symptoms: Pertinent positives: nausea and vomiting, Pertinent negatives: diarrhea, dysuria, fever. The symptoms are described as vague. Modifying factors: The symptoms are alleviated by nothing, the symptoms are aggravated by nothing. Severity of pain: in the emergency department the pain is actually worse. The patient has experienced similar episodes in the past, multiple times, today's symptoms are similar, to previous Crohn's flare up. The patient has not recently seen a physician. 46-year-old patient presenting to the ER with complaints of diffuse abdominal pain and nausea and vomiting. Patient reports feels similar to prior Crohn's flareups. Patient with history of multiple abdominal surgeries included ruptured appendicitis and colostomy with reversal. Historical: - Allergies: 17:53 Bentyl; ww 17:53 Butalbital Compound; ww 17:53 Demerol; ww 17:53 Fentanyl; ww 17:53 Ketorolac; ww 17:53 Morphine; ww 17:53 Reglan; ww 17:53 Sulfa (Sulfonamide Antibiotics); ww 17:53 Talwin; ww 17:53 Toradol; ww 17:53 Zofran; ww - PMHx: 17:53 Crohn's; gastritis; ibs; ww - PSHx: 17:53 Colostomy and reversal; Appendectomy; colon resection; ww - Immunization history:: Adult Immunizations up to date. - Social history:: Smoking status: Patient denies any tobacco usage or history of. ROS: 18:29 Constitutional: Negative for fever, chills, and weight loss, Cardiovascular: Negative pm1 for chest pain, palpitations, and edema, Respiratory: Negative for shortness of breath, cough, wheezing, and pleuritic chest pain. 18:29 Back: Negative for injury and pain, MS/Extremity: Negative for injury and deformity, Skin: Negative for injury, rash, and discoloration, Neuro: Negative for headache, weakness, numbness, tingling, and seizure. 18:29 Abdomen/GI: Positive for abdominal pain, nausea and vomiting, Negative for diarrhea. 18:29 All other systems are negative. Exam: 18:29 Constitutional: This is a well developed, well nourished patient who is awake, alert, pm1 and in no acute distress. Head/Face: Normocephalic, atraumatic. 18:29 Back: No spinal tenderness. No costovertebral tenderness. Full range of motion. Skin: Warm, dry with normal turgor. Normal color with no rashes, no lesions, and no evidence of cellulitis. MS/ Extremity: Pulses equal, no cyanosis. Neurovascular intact. Full, normal range of motion. 18:29 Cardiovascular: Exam negative for acute changes, Rate: normal, Rhythm: regular, Pulses: no pulse deficits are appreciated. 18:29 Respiratory: Exam negative for acute changes, respiratory distress, shortness of breath. 18:29 Abdomen/GI: Inspection: scar(s), are noted in the midline ventral scar present to lower abdomen, Palpation: soft, in all quadrants, mild abdominal tenderness, in the abdomen diffusely. 18:29 Neuro: Exam negative for acute changes, Orientation: is normal, Mentation: is normal, Motor: is normal, moves all fours. Vital Signs: 17:52 BP 178 / 93; Pulse 109; Resp 22; Temp 97.4; Pulse Ox 100% ; Weight 56.7 kg; Height 5 ww ft. 7 in. (170.18 cm); Pain 10/10; 19:00 BP 120 / 86; Pulse 92; Resp 19 S; Pulse Ox 100% on R/A; lg3 19:15 BP 111 / 80; Pulse 85; Resp 18 S; Pulse Ox 100% on R/A; lg3 20:49 BP 118 / 78; Pulse 84; Resp 18 S; Pulse Ox 100% on R/A; lg3 17:52 Body Mass Index 19.58 (56.70 kg, 170.18 cm) ww MDM: 17:50 Patient medically screened. pm1 18:29 Data interpreted: Pulse oximetry: on room air is 100 %. Interpretation: normal. pm1 19:52 Data reviewed: vital signs. 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 20:33 ED course: Patient requesting prescription for her metoprolol. Patient has not found a pm1 new PCP and has not taken her metoprolol for the past 1 month. She takes metoprolol 25 mg BID. 03/10 17:54 Order name: CBC with Diff; Complete Time: 18:46 pm1 03/10 17:54 Order name: CMP; Complete Time: 19:28 pm1 03/10 17:54 Order name: Lipase; Complete Time: 19:28 pm1 03/10 17:54 Order name: CT Abd/Pelvis - IV Contrast Only; Complete Time: 20:03 pm1 03/10 17:54 Order name: IV Saline Lock; Complete Time: 18:24 pm1 03/10 17:54 Order name: Labs collected and sent; Complete Time: 18:23 pm1 Administered Medications: 18:30 Drug: NS 0.9% 1000 ml Route: IV; Rate: 1 bolus; Site: right upper arm; ww 21:10 Follow up: Response: No adverse reaction; IV Status: Completed infusion; IV Intake: lg3 1000ml 18:30 Drug: Phenergan (promethazine) 12.5 mg Route: IVP; Site: right upper arm; ww 19:26 Follow up: Response: No adverse reaction lg3 18:38 Drug: Pepcid (famotidine) 20 mg Route: IVP; Site: right upper arm; ww 20:08 Follow up: Response: No adverse reaction lg3 18:42 Drug: Dilaudid (HYDROmorphone) 1 mg Route: IVP; Site: right upper arm; ww 19:26 Follow up: Response: No adverse reaction; RASS: Alert and Calm (0) lg3 18:52 Drug: Benadryl (diphenhydrAMINE) 12.5 mg Route: IVP; Site: right upper arm; ww 19:26 Follow up: Response: No adverse reaction lg3 20:21 Drug: Phenergan (promethazine) 12.5 mg Route: IVP; Site: right upper arm; lg3 20:21 Follow up: Response: No adverse reaction lg3 20:22 Drug: Dilaudid (HYDROmorphone) 1 mg Route: IVP; Site: right upper arm; lg3 20:22 Follow up: Response: No adverse reaction lg3 20:22 Drug: Benadryl (diphenhydrAMINE) 12.5 mg Route: IVP; Site: right upper arm; lg3 20:22 Follow up: Response: No adverse reaction lg3 21:08 Drug: Decadron - Dexamethasone 10 mg Route: IVP; Site: right upper arm; lg3 21:08 Follow up: Response: No adverse reaction lg3 Disposition Summary: 03/10/22 20:07 Discharge Ordered Location: Home pm1 Problem: new pm1 Symptoms: have improved pm1 Condition: Stable pm1 Diagnosis - Abdominal pain, unspecified - Crohn's disease pm1 Followup: pm1 - With: Emergency Department - When: As needed - Reason: Worsening of condition Followup: pm1 - With: Private Physician - When: 2 - 3 days - Reason: Recheck today's complaints, Continuance of care, Re-evaluation by your physician Discharge Instructions: - Discharge Summary Sheet pm1 - Abdominal Pain, Adult pm1 - Crohn's Disease pm1 Forms: - Medication Reconciliation Form pm1 - Thank You Letter pm1 - Antibiotic Education pm1 - Prescription Opioid Use pm1 Prescriptions: - Pepcid 20 mg Oral Tablet - take 1 tablet by ORAL route every 12 hours for 10 days; 20 tablet; Refills: 0, pm1 Product Selection Permitted - Medrol (Alan) 4 mg Oral Tablets, Dose Pack - take 1 tablet by ORAL route as directed - follow package instructions; 1 pm1 packet; Refills: 0, Product Selection Permitted - Metoprolol Tartrate 25 mg Oral Tablet - take 1 tablet by ORAL route 2 times per day with a meal; 20 tablet; Refills: 0, pm1 Product Selection Permitted - promethazine 25 mg Oral Tablet - take 1 tablet by ORAL route every 6 hours As needed; 20 tablet; Refills: 0, pm1 Product Selection Permitted Signatures: Dispatcher [employer] Karl Prince NP RAILWAY TRACK WORKER pm1 Miya Cramer, RN RN lg3 Radha Carlin, RN RN ww
--- NOTE | 2022-03-10 20:07 | ER ---
Nurse's Notes [facility] Name: Jessica Stearns Age: 46 yrs Sex: Female : 1975 Arrival Date: 03/10/2022 Time: 17:41 Bed 18 Private MD: Diagnosis: Abdominal pain, unspecified-Crohn's disease Presentation: 03/10 17:52 Chief complaint: Patient states: Abdominal pain, nausea and vomiting. Coronavirus ww screen: Vaccine status: Patient reports being unvaccinated. Client denies travel out of the [place] in the last 14 days. Ebola Screen: Patient denies travel to an Ebola-affected area in the 21 days before illness onset. Initial Sepsis Screen: Does the patient meet any 2 criteria? No. Patient's initial sepsis screen is negative. Does the patient have a suspected source of infection? No. Patient's initial sepsis screen is negative. Risk Assessment: Do you want to hurt yourself or someone else? Patient reports no desire to harm self or others. Onset of symptoms is unknown. 17:52 Method Of Arrival: Wheelchair 17:52 Acuity: EVELIA 3 ww Triage Assessment: 17:53 General: Appears uncomfortable, Behavior is anxious. Pain: Complains of pain in ww abdomen. Neuro: Level of Consciousness is awake, alert, obeys commands, Oriented to person, place, time, situation, Speech is normal. Cardiovascular: Patient's skin is warm and dry. Respiratory: Airway is patent Respiratory effort is even, unlabored, Respiratory pattern is regular, symmetrical. GI: Abdomen is non-distended, Abdomen is tender to palpation X 4 quads. Reports lower abdominal pain, upper abdominal pain, cramping, nausea, vomiting. Derm: Skin is thin. Historical: - Allergies: 17:53 Bentyl; ww 17:53 Butalbital Compound; ww 17:53 Demerol; ww 17:53 Fentanyl; ww 17:53 Ketorolac; ww 17:53 Morphine; ww 17:53 Reglan; ww 17:53 Sulfa (Sulfonamide Antibiotics); ww 17:53 Talwin; ww 17:53 Toradol; ww 17:53 Zofran; ww - PMHx: 17:53 Crohn's; gastritis; ibs; ww - PSHx: 17:53 Colostomy and reversal; Appendectomy; colon resection; ww - Immunization history:: Adult Immunizations up to date. - Social history:: Smoking status: Patient denies any tobacco usage or history of. Screenin:55 Abuse screen: Denies threats or abuse. Denies injuries from another. Nutritional ww screening: No deficits noted. Tuberculosis screening: No symptoms or risk factors identified. Fall Risk None identified. Assessment: 17:55 Reassessment: Patient appears in no apparent distress at this time. No changes from ww previously documented assessment. Patient and/or family updated on plan of care and expected duration. Pain level reassessed. see triage assessment. 18:42 Reassessment: Patient appears in no apparent distress at this time. No changes from ww previously documented assessment. Patient and/or family updated on plan of care and expected duration. Pain level reassessed. Patient is alert, oriented x 3, equal unlabored respirations, skin warm/dry/pink. 19:27 General: Appears in no apparent distress. uncomfortable, Behavior is cooperative, lg3 anxious. Pain: Complains of pain in abdomen. Neuro: No deficits noted. Level of Consciousness is awake, alert, obeys commands, Oriented to person, place, time, situation. Cardiovascular: No deficits noted. Capillary refill < 3 seconds Clubbing of nail beds is absent JVD is absent Patient's skin is warm and dry. Respiratory: No deficits noted. Airway is patent Trachea midline Respiratory effort is even, unlabored, Respiratory pattern is regular, symmetrical. GI: Abdomen is flat, non-distended, Reports lower abdominal pain, upper abdominal pain, diarrhea, nausea, vomiting. : No deficits noted. No signs and/or symptoms were reported regarding the genitourinary system. EENT: No deficits noted. No signs and/or symptoms were reported regarding the EENT system. Derm: No deficits noted. No signs and/or symptoms reported regarding the dermatologic system. Skin is intact, is healthy with good turgor, Skin is dry. Musculoskeletal: No deficits noted. No signs and/or symptoms reported regarding the musculoskeletal system. Circulation, motion, and sensation intact. Range of motion: intact in all extremities. 20:50 Reassessment: Patient appears in no apparent distress at this time. No changes from lg3 previously documented assessment. Patient and/or family updated on plan of care and expected duration. Pain level reassessed. Patient is alert, oriented x 3, equal unlabored respirations, skin warm/dry/pink. Vital Signs: 17:52 BP 178 / 93; Pulse 109; Resp 22; Temp 97.4; Pulse Ox 100% ; Weight 56.7 kg; Height 5 ww ft. 7 in. (170.18 cm); Pain 10/10; 19:00 BP 120 / 86; Pulse 92; Resp 19 S; Pulse Ox 100% on R/A; lg3 19:15 BP 111 / 80; Pulse 85; Resp 18 S; Pulse Ox 100% on R/A; lg3 20:49 BP 118 / 78; Pulse 84; Resp 18 S; Pulse Ox 100% on R/A; lg3 17:52 Body Mass Index 19.58 (56.70 kg, 170.18 cm) ww ED Course: 17:41 Patient arrived in ED. mr 17:47 Karl Hart, MARI is PHCP. pm1 17:47 Gerry Torres MD is Attending Physician. pm1 17:52 Radha Carlin, ZARA is Primary Nurse. ww 17:53 Triage completed. ww 17:53 Arm band placed on. ww 17:55 Patient has correct armband on for positive identification. Bed in low position. Call ww light in reach. Side rails up X 1. Pulse ox on. NIBP on. Warm blanket given. 18:42 Inserted saline lock: 20 gauge in right upper arm, using aseptic technique. Blood ww collected. 19:36 CT Abd/Pelvis - IV Contrast Only In Process Unspecified. EDMS 21:09 No provider procedures requiring assistance completed. IV discontinued, intact, lg3 bleeding controlled, No redness/swelling at site. Pressure dressing applied. Administered Medications: 18:30 Drug: NS 0.9% 1000 ml Route: IV; Rate: 1 bolus; Site: right upper arm; ww 21:10 Follow up: Response: No adverse reaction; IV Status: Completed infusion; IV Intake: lg3 1000ml 18:30 Drug: Phenergan (promethazine) 12.5 mg Route: IVP; Site: right upper arm; ww 19:26 Follow up: Response: No adverse reaction lg3 18:38 Drug: Pepcid (famotidine) 20 mg Route: IVP; Site: right upper arm; ww 20:08 Follow up: Response: No adverse reaction lg3 18:42 Drug: Dilaudid (HYDROmorphone) 1 mg Route: IVP; Site: right upper arm; ww 19:26 Follow up: Response: No adverse reaction; RASS: Alert and Calm (0) lg3 18:52 Drug: Benadryl (diphenhydrAMINE) 12.5 mg Route: IVP; Site: right upper arm; ww 19:26 Follow up: Response: No adverse reaction lg3 20:21 Drug: Phenergan (promethazine) 12.5 mg Route: IVP; Site: right upper arm; lg3 20:21 Follow up: Response: No adverse reaction lg3 20:22 Drug: Dilaudid (HYDROmorphone) 1 mg Route: IVP; Site: right upper arm; lg3 20:22 Follow up: Response: No adverse reaction lg3 20:22 Drug: Benadryl (diphenhydrAMINE) 12.5 mg Route: IVP; Site: right upper arm; lg3 20:22 Follow up: Response: No adverse reaction lg3 21:08 Drug: Decadron - Dexamethasone 10 mg Route: IVP; Site: right upper arm; lg3 21:08 Follow up: Response: No adverse reaction lg3 Intake: 21:10 IV: 1000ml; Total: 1000ml. lg3 Outcome: 20:07 Discharge ordered by . pm1 21:09 Discharged to home via wheelchair. lg3 21:09 Condition: stable 21:09 Discharge instructions given to patient, Instructed on discharge instructions, medication usage, Demonstrated understanding of instructions, medications, Prescriptions given X 4. 21:13 Patient left the ED. lg3 Signatures: Dispatcher [employer] MANOJVA Deepika Rosales MariumKarl jessica, STAFF NURSE MIDWIFE STAFF NURSE MIDWIFE pm1 Miya Cramer, ZARA RN lg3 Radha Carlin RN RN ww
[2022-03-10] MEDS ORDERED: dexAMETHasone 10 MG/ML VIAL ONE (20:59)
[2022-03-11 00:32] VITALS: TEMP 97.4; O2SAT 100
[2022-03-11 00:35] VITALS: BP 118/78
== END 2022-03-10 21:13 | disposition home or self-care (01) ==
LOC: ER 17:39
DX: K50.90 Crohn's disease, unspecified, without complications (principal); Z88.2 Allergy status to sulfonamides; Z88.5 Allergy status to narcotic agent; Z88.8 Allergy status to other drugs, medicaments and biological substances
CPT/HCPCS: 36415; 74177; 80053; 83690; 85025; 96361; 96374; 96375; 99284; J1100; J1170; J1200; J2550; J3490; J7030; Q9967

== ENCOUNTER 2022-07-11 21:07 | Emergency (ER) | payer SELFPAY ==
--- OUTSIDE RECORDS SUMMARY | 2022-07-11 21:35 | XMS REPORT | Continuity of Care Document ---
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 every 12 Medical (twelve) Branch hours. metroNIDAZO 2019-11- No [id number] 500mg Take 1 [facility] LE 500 mg 2-16 12-16 tablet by ity of tablet 00:00: 00:00 mouth [place] 00 :00 every 8 Medical (eight) Branch hours. metoprolol 2019-11- No [id number] 25mg Take 1 U nivers tartrate 25 2-16 12-16 tablet by it y of mg tablet 00:00: 00:00 mouth 2 [place] 00 :[place] (two) Medical times Branch daily. metroNIDAZO 2019-11 Yes 500mg 500 mg, Un thor LE (FLAGYL) 2-15 Oral, Q8H, it y of tablet 500 20:00: First dose [place] mg 00 on [facility] 10/29/20 Branch at 1400, Until Discontinu ed, Routine
Reason for Anti-Infec tive: Empiric Therapy for Suspected Infection< br>Empiric Therapy Site: Abdominal& lt;br>Dura tion of therapy: 7 days magnesium 2019-11 2020- No 2g 2 g, IV Univ ers sulfate in 12-30-15 Piggyback, it y of water 2 17:45: 18:42 ONCE, 1 [place] gram/50 mL 00 :00 dose, Tue [facility] ryann (4 %) 10/29/20 Branch infusion 2 at 1145, g Routine HYDROmorpho 2019-11 Yes 2mg 2 mg, Unive rs ne 2-15 Oral, ity of (DILAUDID) 15:19: Q4HPRN, [place] tablet 2 mg 37 Starting Medi ryann [facility] Branch 10/29/20 at 0919, Until Discontinu ed, Routine, Pain (scale 7-10) KCL 20 2019-11 Yes 40meq 40 mEq, Univers mEq/15 mL 2-15 Oral, ity of solution 40 15:00: DAILY, [place] mEq 00 First dose Medical on Branch 10/29/20 at 0900, Until Discontinu ed, Routine HYDROmorpho 2019- 2020- No .5mg 0.5 mg, Un thor ne 12-30 Slow IV ity of (DILAUDID) 07:37: 14:36 Push, [place] injection 39 :49 Q4HPRN, Medical 0.5 mg Starting Branch Wed10/29/20 at 0137, Until Wed10/29/20 at 0836, Routine, Pain (scale 7-10)
U se approved by (Faculty): GENERAL SURGERY
General surgeon approving: Kalee KCL 2019- 2020- No 40meq 40 mEq, Univers (KLOR-CON 12-29 Oral, ity of M20) tablet 15:00: 13:15 DAILY, [place] 40 mEq 00 :49 First dose Medical on [place] [facility] Branch 10/28/20 at 0900, Until Discontinu ed, Routine KCL 2019-11 2020- No 20meq 20 mEq, Univers (KLOR-CON 12-29 Oral, ity of M20) tablet 07:45: 06:54 ONCE, 1 [place] 20 mEq 00 :00 dose, [facility] 10/28/20 Branch at 0145, Routine magnesium 2020- 2020- No 2g 2 g, IV Univ ers sulfate in 12-28 Piggyback, it y of water 2 18:30: 00:58 ONCE, 1 [place] gram/50 mL 00 :00 dose, [place] Medi ryann (4 %) 10/27/20 Branch infusion 2 at 1230, g Routine KCL 2019-11 2020- No 40meq 40 mEq, Univers (POTASSIUM 12-28 Intravenou it y of CHLORIDE) 18:30: 07:20 s, [place] 40 mEq in 00 :00 Administer Medi ryann NaCl 0.9% over 4 Branch (NS) 250 mL Hours, ONCE, 1 dose, [place] 10/27/20 at 1230, Routine HYDROmorpho 2019- 2020- No .5mg 0.5 mg, Un thor ne 12-28 Slow IV ity of (DILAUDID) 05:46: 05:45 Push, [place] injection 42 :42 Q4HPRN, Medical 0.5 mg Starting Branch 10/26/20 at 2346, Until 10/28/20 at 2345, Routine, Pain (scale 7-10)
U se approved by (Faculty): GENERAL SURGERY
General surgeon approving: kalee NaCl 0.9% 2019-11 Yes 10mL 10 mL, Univer s (NS) 212 Slow IV ity of injection 15:39: Push, PRN, [place] 10 mL 14 Starting Medical Sat Branch 10/26/20 at 0939, Until Discontinu ed, Routine, line maintenanc e magnesium 2019-11 2020- No 400mg 400 mg, Uni vers oxide [...] Yes 10mg 10 mg, Univ ers -acetaminop 11 Oral, Q6H, it y of hen (HYCET) 18:00: First dose [place] 7.5-325 00 on Fri Medical mg/15 mL 10/25/20 Branch solution 10 at 1200, mg Until Discontinu ed, Routine enoxaparin 2019-11 Yes 40mg 40 mg, Unive rs (LOVENOX) 11 Subcutaneo ity of injection 15:00: us, DAILY, [place] 40 mg 00 First dose Medical on Fri Branch 10/25/20 at 0900, Until Discontinu ed, Routine metroNIDAZO 2019-11 2020- No 500mg 500 mg, IV Univers LE in NaCl 12-26 Infusion, ity of (iso-os) 02:30: 15:20 Q8H ABX, [place] (FLAGYL 00 :14 First dose Medica l I.V.) RTU on [facility] Branch IV infusion 10/24/20 500 mg at 2030, Until Discontinu ed, 100 mL
R bonnie for Anti-Infec tive: Empiric Non-Surgic al Prophylaxi s
Durat ion of therapy: 7 days ciprofloxac 2019-11- No 400mg 400 mg, IV Univers in in 5 % 12-26-15 Piggyback, ity of dextrose 02:30: 15:20 Administer [...] No .5mg 0.5 mg, Un thor ne 12-26 12-13 Slow IV ity of (DILAUDID) 00:32: [...] Take 2 mg U nivers (XANAX) 2 2- 12-05 by mouth 2 ity of mg [...] 02:00: First dose [place] 7.5-325 00 on Wed Medical mg/15 mL 10/18/20 at Branc h solution 10 2000, mg Until Discontinu ed, Routine HYDROcodone 2019-11 Yes [id number] 1{tbl} Take 1 Un thor -acetaminop 2-05 tablet by ity of hen (NORCO) 00:00: mouth [place] 10-325 mg 00 every 6 Medical tablet (six) Branch hours as needed for Pain (scale 7-10). Indication s: acute pain ibuprofen 2019-11 Yes [id number] 600mg Take 1 U nivers 600 mg 2-05 tablet by ity of tablet 00:00: mouth [place] 00 every 6 Medical (six) Branch hours as needed for Pain (scale 1-3). proMETHazin 2019-11 Yes [id number] 25mg Take 1 Univers e 25 mg [...] Indication s: acute pain ibuprofen 2019-11 Yes [id number] 600mg Take 1 U nivers 600 mg 2-05 tablet by ity of tablet 00:00: mouth [place] 00 every 6 Medical (six) Branch hours as needed for Pain (scale 1-3). proMETHazin 2019-11 Yes [id number] 25mg Take 1 Univers e 25 mg 2-05 tablet by ity of tablet 00:00: mouth [place] 00 every 8 Medical (eight) Branch hours as needed for Nausea and Vomiting (N/V). gabapentin 2019-11 2020- No [id number] 300mg Take 1 Univers 300 mg 2-05 12-20 capsule by ity of capsule 00:00: 05:59 mouth 3 [place] 00 :00 (three) Medical times Branch daily for 14 days. gabapentin 2019- 2020- No [id number] 300mg Take 1 [facility] 300 mg 2-05 [...] (scale 7-10). Indication s: acute pain ALPRAZolam 2019- 2020- No [id number] 2mg Take 1 Univers 2 mg tablet 2- 12-13 tablet by it y of 00:00: 05:59 mouth 2 [place] 00 :00 (two) Medical times Branch daily for 7 days. ALPRAZolam 2019-11 2020- No [id number] 2mg Take 1 Univers 2 mg tablet 2- 12-13 tablet by it y of 00:00: 05:59 mouth 2 [place] 00 :00 (two) Medical times Branch daily for 7 days. simethicone 2019- 2020- No [id number] 80mg Take 1 [facility] 80 mg 2- 12-11 tablet by ity of chewable 00:00: 05:59 mouth [place] tablet 00 :00 after Medical meals and Branch at bedtime for 5 days. simethicone 2019- 2020- No [id number] 80mg Take 1 Univers 80 mg 2- 12-11 tablet by ity of chewable 00:00: 05:59 mouth [place] tablet 00 :00 after Medical meals and Branch at bedtime for 5 days. ibuprofen 2019-11 2020- No [id number] 600mg Take 1 [facility] 600 mg 2- 12-10 tablet by ity of tablet 00:00: 00:00 mouth [place] 00 :00 every 6 Medical (six) Branch hours as needed for Pain (scale 1-3). simethicone 2019- 2020- No [id number] 80mg Take 1 [facility] 80 mg 2- 12-10 tablet by ity of chewable 00:00: 00:00 mouth [place] tablet 00 :00 after Medical meals and Branch at bedtime for 5 days. gabapentin 2019-11 2020- No [id number] 300mg Take 1 [facility] 300 mg 2-05 12-10 capsule by ity of capsule 00:00: 00:00 mouth 3 [place] 00 :00 (three) Medical times Branch daily for 14 days. ALPRAZolam 2019- 2020- No [id number] 2mg Take 1 Univers 2 mg tablet 2- 12-10 tablet by it y of 00:00: 00:00 mouth 2 [place] 00 :00 (two) Medical times Branch daily for 7 days. proMETHazin 2019- 2020- No [id number] 25mg Take 1 Univers e 25 mg 12-20 tablet by ity of tablet 00:00: 00:00 mouth [place] 00 :00 every 8 Medical (eight) Branch hours as needed for Nausea and Vomiting (N/V). proMETHazin 2019-11 2020- No [id number] 25mg Take 1 Univers e 25 mg 12-20 tablet by ity of tablet 00:00: 00:00 mouth [place] 00 :00 every 4 Medical (four) Branch hours as needed for Nausea and Vomiting (N/V) for up to 7 days. HYDROmorpho 2019-11 Yes 1mg 1 mg, Slow Univers ne 204 IV Push, ity of (DILAUDID) 02:56: Q6HPRN, [place] injection 1 33 Starting Medi ryann mg [facility] 10/17/20 at 205, Until Discontinu ed, Routine, Pain (scale 7-10)
U se approved by (Faculty): GENERAL SURGERY
General surgeon approving: Darren Chun ALPRAZolam 2019-11 Yes .25mg 0.25 mg, Un thor (XANAX) 204 Oral, BID, ity of tablet 0.25 02:00: First dose [place] mg 00 on [facility] 10/17/20 at Branch 1999, Until Discontinu ed, Routine HYDROcodone 2019-11- No 5mg 5 mg, Univ ers -acetaminop 12-1804 Oral, Q4H, i ty of hen (HYCET) 22:00: 22:24 First dose [place] 7.5-325 00 :22 (after Medical mg/15 mL last Branch solution 5 modificati mg on) on [facility] 10/17/20 at 1600, Until Discontinu ed, Routine bisacodyL 2019-11 Yes 10mg 10 mg, Univer s (DULCOLAX) 03 Rectal, ity of suppository 03:00: QHSPRN, [place] 10 mg 00 Starting Medical [facility] 10/16/20 at 2100, Until Discontinu ed, [...] dose Medi ryann 1,000 mg on Wed Spray 10/16/20 at 1400, Until Discontinu ed, Routine [...] 500 last Branch mg modificati on) on Wed10/16/20 at 1200, Until Discontinu ed, Routine bisacodyL 2019-11 2020- No 10mg 10 mg, Unive rs (DULCOLAX) 12-17 Rectal, ity o f suppository 15:45: 14:55 ONCE, 1 [place] 10 mg 00 :00 dose, [facility] 10/16/20 at Branch 0945, Routine melatonin 2019-11 Yes 3mg 3 mg, Univers (MELATIN) 12-17 Oral, QHS, ity of tablet 3 mg 03:00: First dose 00 on [facility] Medical 10/15/20 at Branch 2100, Until Discontinu ed, Routine acetaminoph 2019-11 2020- No 650mg 650 mg, U nivers en 12-16 Oral, Q8H, ity of (TYLENOL) 20:00: 14:59 First dose [place] 160 mg/5 mL 00 :29 on Wed Medica l liquid 650 10/15/[address] 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 12-16 ity of 6MG/30ML 17:00: 14:57 [place] 00 :48 Medical Branch NaCl 0.9% 2019-11 Yes 10mL 10 mL, Univer s (NS) 12-16 Slow IV ity of injection 16:51: Push, PRN, [place] 10 mL 43 Starting Medical [facility] 10/15/20 at 1051, Until Discontinu ed, Routine, line maintenanc e enoxaparin 2019-11 Yes 40mg 40 mg, Unive rs (LOVENOX) 12-16 Subcutaneo ity of injection 15:00: us, Q24H, [place] 40 mg 00 First dose Medical on [facility] 10/15/20 at 0900, Until Discontinu ed, Routine sennosides 2019-11- No 8.6mg 8.6 mg, Un thor (SENOKOT) 12-16 Oral, ity of tablet 8.6 15:00: 19:51 DAILY, [place] mg 00 :23 First dose Medical on [facility] 10/15/20 at 0900, Until Discontinu ed, Routine docusate 2019-11 2020- No 100mg 100 mg, Univ ers (COLACE) 12-16 Oral, ity of capsule 100 15:00: 19:51 DAILY, [place] mg 00 :23 First dose Medical on [facility] 10/15/20 at 0900, Until Discontinu ed, Routine HYDROcodone 2019-11 2020- No 5mg 5 mg, Univ ers -acetaminop 12-16 Oral, ity of hen (HYCET) 14:06: 16:54 Q6HPRN, [place] 7.5-325 01 :51 Starting Medical mg/15 mL e Branch solution 5 10/15/20 at mg 0806, Until Wed10/15/20 at 1054, Routine, Pain (scale 4-6) proMETHazin 2019-11 Yes 25mg 25 mg, IV U nivers e 12-16 Piggyback, ity of (PHENERGAN) 03:57: Q8HPRN, [place] 25 mg in 05 Starting Medical NaCl 0.9% [place] [facility] Branch (NS) 50 mL 10/14/20 IV at 2156, piggyback Until Discontinu ed, Routine, Nausea and Vomiting (N/V) HYDROMORPHO 2019-11 No Unive rs NE 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 12-16 ity of 6MG/30ML 03:00: 16:54 [place] 00 :51 Medical Branch pantoprazol 2019-11 Yes 40mg 40 mg, Univ ers e 12-16 Oral, BID, ity of (PROTONIX) 02:00: First dose [place] EC tablet 00 on Wed Medical 40 mg 10/14/20 Branch at 1999, Until Discontinu ed, Routine metoprolol 2019-11 Yes 25mg 25 mg, Unive rs tartrate 12-16 Oral, BID, ity o f (LOPRESSOR) 02:00: First dose [place] tablet 25 00 on [facility] Medical mg 10/14/20 Branch at 1999, Until Discontinu ed, Routine diphenhydrA 2019-11 No 12.5mg 12.5 mg, Univers MINE 12-16 Slow IV ity of (BENADRYL) 01:59: 03:57 Push, [place] injection 02 :54 Q6HPRN, Medical 12.5 mg Starting Branch Wed10/14/20 at 1958, Until Wed10/14/20 at 2156, Routine, Itching naloxone 2019-11 Yes .1mg 0.1 mg, Univer s (NARCAN) 12-16 Slow IV ity of injection 01:57: Push, [place] 0.1 mg 05 SEE-INSTRU Medical CTIONS, Branch Starting Wed10/14/20 at 1956, Until Discontinu ed, Routine acetaminoph 2019-11 No 1000mg 1,000 mg, Univers en ADULT 12-14 IV ity of (OFIRMEV) 18:00: 17:59 Infusion, [place] injection 00 :00 Administer Medi ryann 1,000 mg over 15 Branch Minutes, Q6H, 4 doses, First dose on Wed10/14/20 at 1200, Last dose on Wed10/15/20 at 0600, Routine
Indicatio n: Perioperat pasha Patient morpHINE 30 2019-11- No Unive rs mg/30 mL 12-14 12 ity of (fixed 17:30: 01:59 [place] dose) FOOD PREPARATION SUPERVISOR 00 :31 Medical injection Branch lactated 2019-11- [...] IV ity of (BENADRYL) 16:32: 18:15 Push, [place] injection 01 :20 Q4HPRN, Medical 12.5 mg Starting Branch Wed10/14/20 at 1032, Until Wed10/14/20 at 1215, Routine, Itching, PACU HYDROmorpho 2019-11- No .2mg 0.2 mg, Un thor ne 12-14 Slow IV ity of (DILAUDID) 16:32: 18:15 Push, [place] injection 00 :20 Q5MIN PRN, Medi ryann [...] Take 2 mg Un thor (XANAX) 2 - by mouth 2 ity of mg tablet [...] Yes 40mg Take 40 mg Univers e - by mouth 2 ity of (PROTONIX) 22:39: (two) [place] 40 mg 35 times Medical delayed-rel daily. Branch ease suspension Pantoprazol 2019-11 Yes 40mg Take 40 mg Univers e - by mouth 2 ity of (PROTONIX) 22:39: (two) [place] 40 mg 35 times Medical delayed-rel daily. Branch ease suspension Pantoprazol 2019-11 Yes 40mg Take 40 mg Univers e -23 by mouth 2 ity of (PROTONIX) 22:39: (two) [place] 40 mg 35 times Medical delayed-rel daily. Branch ease suspension proMETHazin 2019-11- No 25mg 25 mg, IV Univers e 12-0218 Piggyback, ity of (PHENERGAN) 06:30: 06:30 ONCE, [...] (scale 1-3). Indication s: chronic pain acetaminoph 2019- 2020- No 2745 1{tbl} Take 1 U [...] [place] 04 times Medical daily. Branch Pantoprazol 2019- Yes 40mg Take 40 mg Univers e 1-13 by mouth 2 ity of (PROTONIX) 15:03: (two) [place] 40 mg 04 times Medical delayed-rel daily. Branch ease suspension ALPRAZolam 2019- Yes 2mg Take 2 mg Un thor (XANAX) 2 1-13 by mouth 2 ity of mg tablet 15:03: (two) [place] 04 times Medical daily. Branch Pantoprazol 2019- Yes [...] Branch ease suspension opium 10 2019-11 Yes [id number] 1mL Take 1 mL Univers mg/mL 1-13 by mouth ity of (morphine) 00:00: every 6 [place] tincture 00 (six) Medical hours. Branch opium 10 2019-11 Yes [id number] 1mL Take 1 mL Univers mg/mL 1-13 by mouth ity of (morphine) 00:00: every 6 [place] tincture 00 (six) Medical hours. Branch opium 10 2019-11 Yes [id number] 1mL Take 1 mL Univers mg/mL 1-13 by mouth ity of (morphine) 00:00: every 6 [place] tincture 00 (six) Medical hours. Branch opium 10 2019-11 Yes [id number] 1mL Take 1 mL Univers mg/mL 1-13 by mouth ity of (morphine) 00:00: every 6 [place] tincture 00 (six) Medical hours. Branch opium 10 2019-11 Yes [id number] 1mL Take 1 mL Univers mg/mL 1-13 by mouth ity of (morphine) 00:00: every 6 [place] tincture 00 (six) Medical hours. Branch opium 10 2019-11 Yes [id number] 1mL Take 1 mL Univers mg/mL 1-13 by mouth ity of (morphine) 00:00: every 6 [place] tincture 00 (six) Medical hours. Branch opium 10 2019-11 Yes [id number] 1mL Take 1 mL Univers mg/mL 1-13 by mouth ity of (morphine) 00:00: every 6 [place] tincture 00 (six) Medical hours. Branch opium 10 2019-11 Yes [id number] 1mL Take 1 mL Univers mg/mL 1-13 by mouth ity of (morphine) 00:00: every 6 [place] tincture 00 (six) Medical hours. Branch opium 10 2019-11 Yes [id number] 1mL Take 1 mL Univers mg/mL 1-13 by mouth ity of (morphine) 00:00: every 6 [place] tincture 00 (six) Medical hours. Branch opium 10 2019-11 Yes [id number] 1mL Take 1 mL Univers mg/mL 1-13 by mouth ity of (morphine) 00:00: every 6 [place] tincture 00 (six) Medical hours. Branch opium 2019-11 Yes [id number] 1mL Take 1 mL Univers mg/mL 1-13 by mouth ity of (morphine) 00:00: every 6 [place] tincture 00 (six) Medical hours. Branch opium 10 2019-11 Yes [id number] 1mL Take 1 mL Univers mg/mL 1-13 by mouth ity of (morphine) 00:00: every 6 [place] tincture 00 (six) Medical hours. Branch opium 2019-11 Yes [id number] 1mL Take 1 mL Univers mg/mL 1-13 by mouth ity of (morphine) 00:00: every 6 [place] tincture 00 (six) Medical hours. Branch opium 2019-11 Yes [id number] 1mL Take 1 mL Univers mg/mL 1-13 by mouth ity of (morphine) 00:00: every 6 [place] tincture 00 (six) Medical hours. Branch opium 2019-11 Yes [id number] 1mL Take 1 mL Univers mg/mL 1-13 by mouth ity of (morphine) 00:00: every 6 [place] tincture 00 (six) Medical hours. Branch opium 2019-11 Yes [id number] 1mL Take 1 mL Univers mg/mL 1-13 by mouth ity of (morphine) 00:00: every 6 [place] tincture 00 (six) Medical hours. Branch opium 10 2019-11 Yes [id number] 1mL Take 1 mL Univers mg/mL 1-13 by mouth ity of (morphine) 00:00: every 6 [place] tincture 00 (six) Medical hours. Branch opium 10 2019-11 Yes [id number] 1mL Take 1 mL Univers mg/mL 1-13 by mouth ity of (morphine) 00:00: every 6 [place] tincture 00 (six) Medical hours. Branch opium 10 2019-11 Yes [id number] 1mL Take 1 mL Univers mg/mL 1-13 by mouth ity of (morphine) 00:00: every 6 [place] tincture 00 (six) Medical hours. Branch opium 10 2019-11 Yes [id number] 1mL Take 1 mL Univers mg/mL 1-13 by mouth ity of (morphine) 00:00: every 6 [place] tincture 00 (six) Medical hours. Branch opium 10 2019-11 Yes [id number] 1mL Take 1 mL Univers mg/mL 1-13 by mouth ity of (morphine) 00:00: every 6 [place] tincture 00 (six) Medical hours. Branch opium 10 2019-11 Yes [id number] 1mL Take 1 mL Univers mg/mL 1-13 by mouth ity of (morphine) 00:00: every 6 [place] tincture 00 (six) Medical hours. Branch opium 2019-11 Yes [id number] 1mL Take 1 mL Univers mg/mL 1-13 by mouth ity of (morphine) 00:00: every 6 [place] tincture 00 (six) Medical hours. Branch opium 2019-11 Yes [id number] 1mL Take 1 mL Univers mg/mL 1-13 by mouth ity of (morphine) 00:00: every 6 [place] tincture 00 (six) Medical hours. Branch opium 10 2019-11 Yes [id number] 1mL Take 1 mL Univers mg/mL 1-13 by mouth ity of (morphine) 00:00: every 6 [place] tincture 00 (six) Medical hours. Branch opium 10 2019-11 Yes [id number] 1mL Take 1 mL Univers mg/mL 1-13 by mouth ity of (morphine) 00:00: every 6 [place] tincture 00 (six) Medical hours. Branch psyllium 2019-11- No [id number] 1{packe Take 1 Univers 3.4 gram 1-13 12-14 t} Packet by ity o f packet 00:00: 05:59 mouth 3 [place] 00 :00 (three) Medical times Branch daily before meals for 30 days. psyllium 2019-11- No [id number] 1{packe Take 1 Univers 3.4 gram 1-13 12-14 t} Packet by ity o f packet 00:00: 05:59 mouth 3 [place] 00 :00 (three) Medical times Branch daily before meals for 30 days. psyllium 2019-11- No [id number] 1{packe Take 1 Univers 3.4 gram 11-27 12-14 t} Packet by ity o f packet 00:00: 05:59 mouth 3 [place] 00 :00 (three) Medical times Branch daily before meals for 30 days. psyllium 2019-11- No [id number] 1{packe Take 1 Univers 3.4 gram - 12-14 t} Packet by ity o f packet 00:00: 05:59 mouth 3 [place] 00 :00 (three) Medical times Branch daily before meals for 30 days. psyllium 2019-11- No [id number] 1{packe Take 1 Univers 3.4 gram 11-27-14 t} Packet by ity o f packet 00:00: 05:59 mouth 3 [place] 00 :00 (three) Medical times Branch daily before meals for 30 days. psyllium 2019-11- No [id number] 1{packe Take 1 Univers 3.4 gram 11-27-14 t} Packet by ity o f packet 00:00: 05:59 mouth 3 [place] 00 :00 (three) Medical times Branch daily before meals for 30 days. psyllium 2019-11- No [id number] 1{packe Take 1 Univers 3.4 gram 11-27 12-14 t} Packet by ity o f packet 00:00: 05:59 mouth 3 [place] 00 :00 (three) Medical times Branch daily before meals for 30 days. psyllium 2019-11- No [id number] 1{packe Take 1 Univers 3.4 gram 13 12-14 t} Packet by ity o f packet 00:00: 05:59 mouth 3 [place] 00 :00 (three) Medical times Branch daily before meals for 30 days. psyllium 2019-11- No [id number] 1{packe Take 1 Univers 3.4 gram -13 12-14 t} Packet by ity o f packet 00:00: 05:59 mouth 3 [place] 00 :00 (three) Medical times Branch daily before meals for 30 days. psyllium 2019-11- No [id number] 1{packe Take 1 Univers 3.4 gram 1-13 12-14 t} Packet by ity o f packet 00:00: 05:59 mouth 3 [place] 00 :00 (three) Medical times Branch daily before meals for 30 days. psyllium 2019-11- No [id number] 1{packe Take 1 Univers 3.4 gram 1-13 12-14 t} Packet by ity o f packet 00:00: 05:59 mouth 3 [place] 00 :00 (three) Medical times Spray daily before meals for 30 days. psyllium 2019-11- No [id number] 1{packe Take 1 Univers 3.4 gram 1-13 12-14 t} Packet by ity o f packet 00:00: 05:59 mouth 3 [place] 00 :00 (three) Medical times Branch daily before meals for 30 days. psyllium 2019-11- No [id number] 1{packe Take 1 Univers 3.4 gram 1-13 12-14 t} Packet by ity o f packet 00:00: 05:59 mouth 3 [place] 00 :00 (three) Medical times Spray daily before meals for 30 days. psyllium 2019-11- No [id number] 1{packe Take 1 Univers 3.4 gram 1-13 12-14 t} Packet by ity o f packet 00:00: 05:59 mouth 3 [place] 00 :00 (three) Medical times Spray daily before meals for 30 days. psyllium 2019-11- No [id number] 1{packe Take 1 Univers 3.4 gram 1-13 12-10 t} Packet by ity o f packet 00:00: 00:00 mouth 3 [place] 00 :00 (three) Medical times Spray daily before meals for 30 days. dextroamphe 2019-11 2020- No 30mg Take 30 mg Univers tamine-amph -02 23-04 by mouth 2 i ty of etamine 23:07: 00:00 (two) [place] (ADDERALL) 54 :00 times Medical 30 mg daily. Branch tablet ALPRAZolam 2019-11 Yes 2mg Take 2 mg Un thor (XANAX) 2 -04 by mouth 2 ity of mg tablet 23:07: (two) [place] 52 times Medical daily. Branch Pantoprazol 2019-11 Yes 40mg Take 40 mg Univers e 04 by mouth 2 ity of (PROTONIX) 23:07: (two) [place] 40 mg 52 times Medical delayed-rel daily. Branch ease suspension ALPRAZolam 2019-11 Yes 2mg Take 2 mg Un thor (XANAX) 2 1-04 by mouth 2 ity of mg tablet 23:07: (two) [place] 52 times Medical daily. Branch Pantoprazol 2019-11 Yes 40mg Take 40 mg Univers e 1-04 by mouth 2 ity of (PROTONIX) 23:07: (two) [place] 40 mg 52 times Medical delayed-rel daily. Branch ease suspension ALPRAZolam 2019-11 Yes 2mg Take 2 mg Un thor (XANAX) 2 1-04 by mouth 2 ity of mg tablet 23:07: (two) [place] 52 times Medical daily. Branch Pantoprazol 2019-11 Yes 40mg Take 40 mg Univers e 1-04 by mouth 2 ity of (PROTONIX) 23:07: (two) [place] 40 mg 52 times Medical delayed-rel daily. Branch ease suspension ALPRAZolam 2019-11 Yes 2mg Take 2 mg Un thor (XANAX) 2 1-04 by mouth 2 ity of mg tablet 23:07: (two) [place] 52 times Medical daily. Branch Pantoprazol 2019-11 Yes 40mg Take 40 mg Univers e 1-04 by mouth 2 ity of (PROTONIX) 23:07: (two) [place] 40 mg 52 times Medical delayed-rel daily. Branch ease suspension metoprolol 2019-11 Yes 50mg 50 mg, Unive rs tartrate -04 Oral, BID, ity o f (LOPRESSOR) 02:00: First dose [place] tablet 50 00 (after Medical mg last Branch modificati on) on Wed09/17/20 at 2000, Until Discontinu ed, Routine HYDROmorpho 2019-11 2020- No .5mg 0.5 mg, Un thor ne -02 23-04 Slow IV ity of (DILAUDID) 01:15: 00:26 Push, [place] injection 00 :00 ONCE, 1 Medical 0.5 mg dose, [facility] 09/17/20 at 1915, Routine
Use approved by [...] (scale 4-6). Indication s: acute pain HYDROcodone 2019-11- No [id number] 1{tbl} Take 1 U nivers -acetaminop 1-04 12-16 tablet by it y of hen 5-325 00:00: 00:00 mouth [place] mg tablet 00 :00 every 6 Medical (six) Branch hours as needed for Pain (scale 4-6). Indication s: acute pain proMETHazin 2019-11- No [id number] 25mg Take 1 Univers e 25 mg 1-04 11-25 tablet by ity of tablet 00:00: 05:59 mouth [place] 00 :00 every 6 Medical (six) Branch hours as needed for Nausea and Vomiting (N/V) for up to 20 days. proMETHazin 2019-11 2020- No [id number] 25mg Take 1 Univers e 25 mg 1-04 11-25 tablet by ity of tablet 00:00: 05:59 mouth [place] 00 :00 every 6 Medical (six) Branch hours as needed for Nausea and Vomiting (N/V) for up to 20 days. proMETHazin 2019-11 2020- No [id number] 25mg Take 1 [facility] e 25 mg 1-04 11-25 tablet by ity of tablet 00:00: 05:59 mouth [place] 00 :00 every 6 Medical (six) Branch hours as needed for Nausea and Vomiting (N/V) for up to 20 days. proMETHazin 2019-11 2020- No [id number] 25mg Take 1 [facility] e 25 mg 1-04 11-25 tablet by ity of tablet 00:00: 05:59 mouth [place] 00 :00 every 6 Medical (six) Branch hours as needed for Nausea and Vomiting (N/V) for up to 20 days. proMETHazin 2019- 2020- No [id number] 25mg Take 1 [facility] e 25 mg 1-04 11-25 tablet by ity of tablet 00:00: 05:59 mouth [place] 00 :00 every 6 Medical (six) Branch hours as needed for Nausea and Vomiting (N/V) for up to 20 days. proMETHazin 2019-2019- No [id number] 25mg Take 1 [facility] e 25 mg 1-04 11-25 tablet by ity of tablet 00:00: 05:59 mouth [place] 00 :00 every 6 Medical (six) Branch hours as needed for Nausea and Vomiting (N/V) for up to 20 days. proMETHazin 2019-11- No [id number] 25mg Take 1 [facility] e 25 mg 1-04 11-25 tablet by ity of tablet 00:00: 05:59 mouth [place] 00 :00 every 6 Medical (six) Branch hours as needed for Nausea and Vomiting (N/V) for up to 20 days. proMETHazin 2019-11- No [id number] 25mg Take 1 [facility] e 25 mg 1-04 11-25 tablet by ity of tablet 00:00: 05:59 mouth [place] 00 :00 every 6 Medical (six) Branch hours as needed for Nausea and Vomiting (N/V) for up to 20 days. proMETHazin 2019-11- No [id number] 25mg Take 1 [facility] e 25 mg 1-04 11-25 tablet by ity of tablet 00:00: 05:59 mouth [place] 00 :00 every 6 Medical (six) Branch hours as needed for Nausea and Vomiting (N/V) for up to 20 days. proMETHazin 2019-11 2020- No [id number] 25mg Take 1 [facility] 25 mg 1-04 11-25 tablet by ity of tablet 00:00: 05:59 mouth [place] 00 :00 every 6 Medical (six) Branch hours as needed for Nausea and Vomiting (N/V) for up to 20 days. proMETHazin 2019-11 2020- No [id number] 25mg Take 1 [facility] e 25 mg 1-04 11-25 tablet by ity of tablet 00:00: 05:59 mouth [place] 00 :00 every 6 Medical (six) Branch hours as needed for Nausea and Vomiting (N/V) for up to 20 days. proMETHazin 2019- 2020- No [id number] 25mg Take 1 [facility] e 25 mg 11-1825 tablet by ity of tablet 00:00: 05:59 mouth [place] 00 :00 every 6 Medical (six) Branch hours as needed for Nausea and Vomiting (N/V) for up to 20 days. proMETHazin 2019- 2020- No [id number] 25mg Take 1 [facility] e 25 mg 11-1825 tablet by ity of tablet 00:00: 05:59 mouth [place] 00 :00 every 6 Medical (six) Branch hours as needed for Nausea and Vomiting (N/V) for up to 20 days. proMETHazin 2019-2019- No [id number] 25mg Take 1 [facility] e 25 mg 11-1825 tablet by ity of tablet 00:00: 05:59 [...]
Use approved by (Faculty): ADC PROVIDER HYDROmorpho 2019-11- No 1mg 1 mg, Slow Univers ne 11-17 IV Push, ity of (DILAUDID) 07:30: 06:44 ONCE, 1 [place] injection 1 00 :00 dose, Tue Med ical mg 09/17/20 at Branch 0130, Routine
Use approved by (Faculty): ADC PROVIDER HYDROmorpho 2019-11 2020- No .5mg 0.5 mg, Un thor ne 11-16 Slow IV ity of (DILAUDID) 19:45: 19:10 Push, [place] injection 00 :00 ONCE, 1 Medical 0.5 mg dose, Mon Branch 09/16/20 at 1345, Routine
Use approved by (Faculty): ADC PROVIDER HYDROcodone 2019- Yes 2{tbl} 2 tablet, Univers -acetaminop 11-16 [...] 09/15/20 at 125 mg 0245, Routine HYDROcodone 2019-11- No 1{tbl} 1 tablet, Univers -acetaminop 11-15 [...] captab 1 Discontinu tablet ed, Routine magnesium 2019-11 2020- No 400mg 400 mg, Uni vers oxide 0-31 1031 Oral, ONCE ity of (MAG-OX 18:15: 19:50 NOW, 1 [place] 400) tablet 00 :00 dose, Sat Med ical 400 mg 09/14/20 Branch at 1315, Routine HYDROcodone 2019-11 2020- No 1{tbl} 1 tablet, Univers -acetaminop 0-31 09-15 Oral, ity of hen (NORCO) 14:35: 07:40 Q6HPRN, [place] 10-325 mg 18 :22 Starting Medica l tablet 1 [facility] tablet 09/14/20 at 0935, Until 09/15/20 at 0140, Routine, Pain (scale 7-10) diphenhydrA 2019-11 Yes 12.5mg 12.5 mg, Univers MINE Slow IV ity of (BENADRYL) 14:26: Push, [place] injection 59 Q6HPRN, Medical 12.5 mg Starting Branch [facility] 09/14/20 at 0926, Until Discontinu ed, Routine, Itching pantoprazol 2019-11 Yes 40mg 40 mg, Univ ers e Oral, ity of (PROTONIX) 14:00: DAILY, [place] EC tablet 00 First dose Medi ryann 40 mg on [facility] Branch 09/14/20 at 0900, Until Discontinu ed ALPRAZolam 2019-11 Yes .5mg 0.5 mg, Univ ers (XANAX) Oral, ity of tablet 0.5 13:00: TIDPRN, [place] mg 00 Starting Medical [facility] 09/14/20 at 0800, Until Discontinu ed, Routine, anxiety clindamycin 2019-11 No 600mg 600 mg, IV Univers in 5 % 09-14 Piggyback, ity of dextrose 06:45: 19:02 Q8H ABX, [place] (CLEOCIN) 00 :12 First dose Medi ryann 600 mg/50 on [facility] Branch mL IV 09/14/20 piggyback at 0145, [...] 1 [place] 00 :00 dose, Fri [facility] 09/13/20 Branch at 2330, Routine morpHINE 2019-11 No 4mg 4 mg, Slow Un thor injection 4 09-14 IV Push, ity of mg 04:00: 22:20 Q4HPRN, [place] 00 :01 Starting Medical Fri Branch 09/13/20 at 2300, Until 09/14/20 at 1720, Routine, Pain (scale 7-10) heparin 2019-11 Yes 5000U 5,000 [facility] (porcine) 0-31 Units, ity of injection 03:00: Subcut[place]o [place] 5,000 Units 00 us, Q8H, Medi ryann First dose Branch (after last modificati on) on Wed09/13/20 at 2200, Until Discontinu ed, Routine proMETHazin 2019-11- No 12.5mg 12.5 mg, Univers e 0-31 1102 IV ity of (PHENERGAN) 01:23: 18:35 Piggyback, [place] 12.5 mg in 35 :16 Q4HPRN, Medica l NaCl 0.9% Starting Branch (NS) 50 mL Fri IV 09/13/20 piggyback at 2022, Until 09/16/20 at 1235, Routine, Nausea and Vomiting (N/V) metoprolol 2019-11- No 25mg 25 mg, Univ ers tartrate 0 11-03 Oral, BID, ity of (LOPRESSOR) 01:00: [...] 2019-11- No 12.5mg 12.5 mg, Univers e 009-14 Oral, ity of (PHENERGAN) 21:52: 01:23 Q6HPRN, [place] tablet 12.5 52 :46 Starting Medi ryann mg Fri Branch 09/13/20 at 1652, Until Wed09/13/20 at 2022, Routine, Nausea and Vomiting (N/V) morpHINE 2019-11- No 2mg 2 mg, Slow Un thor injection 2 09-14 IV Push, ity of mg 21:52: 03:49 Q6HPRN, [place] 02 :41 Starting Medical Fri Branch 09/13/20 at 1652, Until 09/13/20 at 2249, Routine, Pain (scale 7-10) ALPRAZolam 2020-1 Yes 2mg Take 2 mg Un thor (XANAX) 2 0-30 by mouth 2 ity of mg tablet 21:19: (two) [place] 51 times Medical daily. Branch dextroamphe 2020-1 Yes [...] [place] 51 times Medical daily. Branch dextroamphe 2020-1 Yes [...] [place] 51 times Medical daily. Branch dextroamphe 2020-1 Yes [...] 2 ity of mg tablet 21:19: (two) [place] 51 times Medical daily. Branch dextroamphe 2019-11 [...] 2 ity of mg tablet 21:19: (two) [place] 51 times Medical daily. Branch dextroamphe 2019-11 Yes 30mg Take 30 mg Univers tamine-amph 0-30 by mouth 2 it y of etamine 21:19: (two) [place] (ADDERALL) 51 times Medical 30 mg daily. Branch tablet Pantoprazol 2019-11 Yes 40mg Take 40 mg Univers e 0-30 by mouth 2 ity of (PROTONIX) 21:19: (two) [place] 40 mg 51 times Medical delayed-rel daily. Branch ease suspension diphenhydrA 2019-11 2020- No 12.5mg 12.5 mg, Univers MINE 0-30 10-31 Slow IV ity of (BENADRYL) 21:14: 14:27 Push, [place] injection 00 :41 Q6HPRN, Medical 12.5 mg Starting Branch 09/13/20 at 1614, Until 09/14/20 at 0927, Routine, Itching acetaminoph 2019-11 Yes 650mg 650 mg, Un thor en 0-30 Oral, ity of (TYLENOL) 20:56: Q6HPRN, [place] tablet 650 54 Starting Medic al mg [...] IV ity of (PF)) 19:15: 18:11 Push, [place] injection 00 :00 ONCE, 1 Medical 20 mg dose, Fri Branch 09/13/20 at 1415, LUISA methylpredn 2019-11 2020- No 125mg 125 mg, IV Univers isolone sod 0-30 10-30 Piggyback, i ty of succ 19:15: 18:06 ONCE, 1 [place] (SOLU-MEDRO 00 :00 dose, Fri Med ical L) 09/13/20 Branch injection at 1415, 125 mg STAT morpHINE 2019-11- No 4mg 4 mg, [...] 09/13/20 Branch at 1315, Routine NaCl 0.9% 2019-11- No 1000mL at 999 Uni vers (NS) IV 0-30 10-30 mL/hr, ity of infusion 17:00: 18:07 Intravenou [place] 1,000 mL 00 :00 s, ONCE, 1 Medic al dose, Fri Branch 09/13/20 at 1200, LUISA proMETHazin 2019-11- No 12.5mg 12.5 mg, Univers e 0-30 10-30 IV ity of (PHENERGAN) 16:45: 16:45 Piggyback, [place] 12.5 mg in 00 :00 ONCE, 1 Medica l NaCl 0.9% dose, Fri Branc h (NS) 50 mL 09/13/20 piggyback at 1145, 50 mL diphenhydrA 2019-11- No 25mg 25 mg, Uni vers MINE 0-30 10-30 Slow IV ity of (BENADRYL) 16:45: 16:01 Push, [place] injection 00 :00 ONCE, 1 Medical 25 mg dose, Fri Branch 09/13/20 at 1145, STAT morpHINE 2019-11- No 4mg 4 mg, [...] 7 days. Indication s: acute pain HYDROcodone 2019-11- No 4647 1{tbl} Take 1 [...] days. Indication s: acute pain proMETHazin 2019-11 No 25mg 25 mg, IV Univers e 0-18 09-01 Piggyback, ity of (PHENERGAN) 11:00: 09:56 ONCE, [...] Medical 09/01/20 Branch at 0600, STAT iohexol 2019-11 2020- No 120mL 120 mL, Unive rs (OMNIPAQUE 0-18 10-18 Intravenou it y of 350 08:15: 07:56 s, ONCE, 1 [place] BULK-100 00 :00 dose, [place] Medica l mL) 09/01/20 Branch injection at 0315, 120 mL Routine NaCl 0.9% 2019-11- No 1000mL at 999 Uni vers (NS) bolus 0-18 10-18 mL/hr, ity of infusion 08:00: 09:54 1,000 mL, [place] 1,000 mL 00 :00 IV Medical Infusion, Branch ONCE, 1 dose, [place] 09/01/20 at 0300, STAT diphenhydrA 2019-11- No 25mg 25 mg, Uni vers MINE 0-18 10-18 Slow IV ity of (BENADRYL) 08:00: 07:20 Push, [place] injection 00 :00 ONCE, 1 Medical 25 mg dose, [place] Branch 09/01/20 at 0300, STAT proMETHazin 2019-11- [...] 07:22 ONCE, 1 [place] 00 :00 dose, [place] Medical 09/01/20 Branch at 0300, STAT iohexol 2019-11 2020- No 60mL 60 mL, Univers (OMNIPAQUE 0-10 10-10 Intravenou it y of 350 BULK-75 01:45: 01:45 s, ONCE, 1 [place] mL) 00 :00 dose, Fri Medical injection 08/23/20 at Bran ch 60 mL 2044, Routine diphenhydrA 2019-11- No 12.5mg 12.5 mg, Univers MINE 0-10 10-09 Slow IV ity of (BENADRYL) 00:00: 23:44 Push, [place] injection 00 :00 ONCE, 1 Medical 12.5 mg dose, Fri Spray 08/23/20 at 1900, STAT morpHINE 2019-11- No 4mg 4 mg, Slow Un thor injection 4 0-10 -09 IV Push, ity of mg 00:00: 23:43 ONCE, 1 [place] 00 :00 dose, Fri Medical 08/23/20 at Branch 1900, STAT NaCl 0.9% 2019-11- No 1000mL at 999 Uni vers (NS) bolus 0-09 10-10 mL/hr, ity of infusion 23:45: 00:00 1,000 mL, [place] 1,000 mL 00 :00 IV Medical Infusion, Spray ONCE, 1 dose, [facility] 08/23/20 at 1845, STAT ALPRAZolam 2019-11 Yes [...] Sat Medica l NaCl 0.9% 08/17/20 at [facility] (NS) 50 mL 2315, 50 piggyback mL morpHINE 2019-11- No 4mg 4 mg, Slow Un thor injection 4 0-04 10-04 IV Push, ity of mg 04:15: 03:25 ONCE, 1 [place] 00 :00 dose, Sat Medical 08/17/20 at Spray 2315, STAT NaCl 0.9% 2019-11 2020- No 500mL at 999 Univ ers (NS) bolus 0-04 10-04 mL/hr, 500 it y of infusion 04:15: 05:26 mL, IV [place] 500 mL 00 :00 Infusion, Medical ONCE, 1 Branch dose, 08/17/20 at 2315, STAT iohexol 2019-11- No 119mL 119 mL, Unive rs (OMNIPAQUE 0-04 10- Intravenou it y of 350 02:19: 02:19 s, ONCE, 1 [place] BULK-150 00 :00 dose, Sat Medica l mL) 08/17/20 at Branch injection 0, 119 mL Routine NaCl 0.9% 2019-11 Yes 1000mL at 999 Univ ers (NS) IV 0-04 mL/hr, ity of infusion 02:15: Intravenou [place] 1,000 mL 00 s, Medical CONTINUOUS Branch , Starting 08/17/20 at 2115, Until Discontinu ed, Routine proMETHazin 2019-11- No 25mg 25 mg, IV Univers e 0-04 08-18 Piggyback, ity of (PHENERGAN) 02:15: 01:24 ONCE, 1 [place] 25 mg in 00 :00 dose, Sat Medica l NaCl 0.9% 08/17/20 at [facility] ch (NS) 50 mL 2114, 50 piggyback mL morpHINE 2019-11- No 4mg 4 mg, Slow Un thor injection 4 0- 10 IV Push, ity of mg 02:15: 01:24 ONCE, 1 [place] 00 :00 dose, [facility] 08/17/20 at Branch 2114, STAT diphenhydrA 2019-11 2020- No 25mg 25 mg, Uni vers MINE 0- 10- Slow IV ity of (BENADRYL) 02:15: 01:24 Push, [place] injection 00 :00 ONCE, 1 Medical 25 mg dose, [facility] 08/17/20 at 211, STAT proMETHazin 2019-11 Yes [id number] 25mg Take 1 [facility] e 25 mg 0-03 tablet by ity of tablet 00:00: mouth [place] 00 every 6 Medical (six) Branch hours as needed for Nausea and Vomiting (N/V). proMETHazin 2019-11 Yes [id number] 25mg Take 1 [facility] e 25 mg 0-03 tablet by ity of tablet 00:00: mouth [place] 00 every 6 Medical (six) Branch hours as needed for Nausea and Vomiting (N/V). proMETHazin 2019-11 Yes [id number] 25mg Take 1 [facility] e 25 mg 0-03 tablet by ity of tablet 00:00: mouth [place] 00 every 6 Medical (six) Branch hours as needed for Nausea and Vomiting (N/V). proMETHazin 2019-11 Yes [id number] 25mg Take 1 [facility] e 25 mg 0-03 tablet by ity of tablet 00:00: mouth [place] 00 every 6 Medical (six) Branch hours as needed for Nausea and Vomiting (N/V). proMETHazin 2020- Yes [id number] 25mg Take 1 [facility] e 25 mg 0-03 tablet by ity of tablet 00:00: mouth [place] 00 every 6 Medical (six) Branch hours as needed for Nausea and Vomiting (N/V). proMETHazin 2019- Yes [id number] 25mg Take 1 [facility] e 25 mg 0-03 tablet by ity of tablet 00:00: mouth [place] 00 every 6 Medical (six) Branch hours as needed for Nausea and Vomiting (N/V). proMETHazin 2019- Yes [id number] 25mg Take 1 [facility] e 25 mg 0-03 tablet by ity of tablet 00:00: mouth [place] 00 every 6 Medical (six) Branch hours as needed for Nausea and Vomiting (N/V). proMETHazin 2019- Yes [id number] 25mg Take 1 [facility] e 25 mg 0-03 tablet by ity of tablet 00:00: mouth [place] 00 every 6 Medical (six) Branch hours as needed for Nausea and Vomiting (N/V). proMETHazin 2019- Yes [id number] 25mg Take 1 [facility] e 25 mg 0-03 tablet by ity of tablet 00:00: mouth [place] 00 every 6 Medical (six) Branch hours as needed for Nausea and Vomiting (N/V). proMETHazin 2019- Yes [id number] 25mg Take 1 Univers e 25 mg 0-03 tablet by ity of tablet 00:00: mouth [place] 00 every 6 Medical (six) Branch hours as needed for Nausea and Vomiting (N/V). proMETHazin 2019-1 Yes [id number] 25mg Take 1 Univers e 25 mg 0-03 tablet by ity of tablet 00:00: mouth [place] 00 every 6 Medical (six) Branch hours as needed for Nausea and Vomiting (N/V). proMETHazin 2020-1 Yes [id number] 25mg Take 1 Univers e 25 mg 0-03 tablet by ity of tablet 00:00: mouth [place] 00 every 6 Medical (six) Branch hours as needed for Nausea and Vomiting (N/V). proMETHazin 2019-1 Yes [id number] 25mg Take 1 Univers e 25 mg 0-03 tablet by ity of tablet 00:00: mouth [place] 00 every 6 Medical (six) Branch hours as needed for Nausea and Vomiting (N/V). proMETHazin 2019- Yes [id number] 25mg Take 1 Univers e 25 mg 0-03 tablet by ity of tablet 00:00: mouth [place] 00 every 6 Medical (six) Branch hours as needed for Nausea and Vomiting (N/V). proMETHazin 2019- Yes [id number] 25mg Take 1 Univers e 25 mg 0-03 tablet by ity of tablet 00:00: mouth [place] 00 every 6 Medical (six) Branch hours as needed for Nausea and Vomiting (N/V). proMETHazin 2019- Yes [id number] 25mg Take 1 Univers e 25 mg 0-03 tablet by ity of tablet 00:00: mouth [place] 00 every 6 Medical (six) Branch hours as needed for Nausea and Vomiting (N/V). proMETHazin 2019- Yes [id number] 25mg Take 1 Univers e 25 mg 0-03 tablet by ity of tablet 00:00: mouth [place] 00 every 6 Medical (six) Branch hours as needed for Nausea and Vomiting (N/V). proMETHazin 2019-1 Yes [id number] 25mg Take 1 Univers e 25 mg 0-03 tablet by ity of tablet 00:00: mouth [place] 00 every 6 Medical (six) Branch hours as needed for Nausea and Vomiting (N/V). proMETHazin 2019-1 Yes [id number] 25mg Take 1 Univers e 25 mg 0-03 tablet by ity of tablet 00:00: mouth [place] 00 every 6 Medical (six) Branch hours as needed for Nausea and Vomiting (N/V). proMETHazin 2019- 2020- No [id number] 25mg Take 1 Univers e 25 mg 0-03 11-04 tablet by ity of tablet 00:00: 00:00 mouth [place] 00 :00 every 6 Medical (six) Branch hours as needed for Nausea and Vomiting (N/V). ALPRAZolam 2020-0 Yes 2mg Take 2 mg Un thor (XANAX) 2 -17 by mouth 2 ity of mg tablet 22:47: (two) [place] 13 times Medical daily. Branch dextroamphe 2020-0 Yes 30mg Take 30 mg Univers tamine-amph -17 by mouth 2 it y of etamine [...] Yes 2mg 2 mg, Unive rs ne - Oral, ity of (DILAUDID) 12:00: Q6HPRN, [place] tablet 2 mg 00 Starting Medi [facility] Branch 08/01/20 at 0700, Until Discontinu ed, Routine, Pain (scale 7-10) ibuprofen 2020-0 Yes [id number] 600mg Take 1 [facility] 600 mg 9-17 tablet by ity of tablet 00:00: mouth [place] 00 every 6 Medical (six) Branch hours. loperamide 2020-0 Yes [id number] 2mg Take 1 Univers 2 mg 9-17 capsule by ity of capsule 00:00: mouth [place] 00 daily. Medical Branch methocarbam 2020-0 Yes [id number] 500mg Take 1 Univers oL 500 mg 9-17 tablet by ity o f tablet 00:00: mouth 4 [place] 00 (four) Medical times Branch daily. ibuprofen 2020-0 Yes [id number] 600mg Take 1 [facility] 600 mg 9-17 tablet by ity of tablet 00:00: mouth [place] 00 every 6 Medical (six) Branch hours. loperamide 2020-0 Yes [id number] 2mg Take 1 [facility] 2 mg 9-17 capsule by ity of capsule 00:00: mouth [place] 00 daily. Medical Branch methocarbam 2020-0 Yes [id number] 500mg Take 1 [facility] oL 500 mg 9-17 tablet by ity o f tablet 00:00: mouth (four) Medical times Branch daily. ibuprofen 2020-0 Yes [id number] 600mg Take 1 [facility] 600 mg 9-17 tablet by ity of tablet 00:00: mouth [place] 00 every 6 Medical (six) Branch hours. loperamide 2020-0 Yes [id number] 2mg Take 1 [facility] 2 mg 9-17 capsule by ity of capsule 00:00: mouth [place] 00 daily. Medical Branch methocarbam 2020-0 Yes [id number] 500mg Take 1 [facility] oL 500 mg 9-17 tablet by ity o f tablet 00:00: mouth (four) Medical times Branch daily. ibuprofen 2020-0 Yes [id number] 600mg Take 1 [facility] 600 mg 9-17 tablet by ity of tablet 00:00: mouth [place] 00 every 6 Medical (six) Branch hours. loperamide 2020-0 Yes [id number] 2mg Take 1 [facility] 2 mg 9-17 capsule by ity of capsule 00:00: mouth [place] 00 daily. Medical Branch methocarbam 2020-0 Yes [id number] 500mg Take 1 [facility] oL 500 mg 9-17 tablet by ity o f tablet 00:00: mouth 4 (four) Medical times Branch daily. ibuprofen 2020-0 Yes [id number] 600mg Take 1 [facility] 600 mg 9-17 tablet by ity of tablet 00:00: mouth [place] 00 every 6 Medical (six) Branch hours. loperamide 2020-0 Yes [id number] 2mg Take 1 [facility] 2 mg 9-17 capsule by ity of capsule 00:00: mouth [place] 00 daily. Medical Branch methocarbam 2020-0 Yes [id number] 500mg Take 1 [facility] oL 500 mg 9-17 tablet by ity o f tablet 00:00: mouth (four) Medical times Branch daily. ibuprofen 2020-0 Yes [id number] 600mg Take 1 [facility] 600 mg 9-17 tablet by ity of tablet 00:00: mouth [place] 00 every 6 Medical (six) Branch hours. loperamide 2020-0 Yes [id number] 2mg Take 1 [facility] 2 mg 9-17 capsule by ity of capsule 00:00: mouth 00 daily. Medical Branch methocarbam 2020-0 Yes [id number] 500mg Take 1 [facility] oL 500 mg 9-17 tablet by ity o f tablet 00:00: mouth (four) Medical times Branch daily. ibuprofen 2020-0 Yes [id number] 600mg Take 1 [facility] 600 mg 9-17 tablet by ity of tablet 00:00: mouth 00 every 6 Medical (six) Branch hours. loperamide 2020-0 Yes [id number] 2mg Take 1 [facility] 2 mg 9-17 capsule by ity of capsule 00:00: mouth 00 daily. Medical Branch methocarbam 2020-0 Yes [id number] 500mg Take 1 [facility] oL 500 mg 9-17 tablet by ity o f tablet 00:00: mouth (four) Medical times Branch daily. ibuprofen 2020-0 Yes [id number] 600mg Take 1 [facility] 600 mg 9-17 tablet by ity of tablet 00:00: mouth [place] 00 every 6 Medical (six) Branch hours. loperamide 2020-0 Yes [id number] 2mg Take 1 Univers 2 mg 9-17 capsule by ity of capsule 00:00: mouth 00 daily. Medical Branch methocarbam 2020-0 Yes [id number] 500mg Take 1 Univers oL 500 mg 9-17 tablet by ity o f tablet 00:00: mouth (four) Medical times Branch daily. ibuprofen 2020-0 Yes [id number] 600mg Take 1 [facility] 600 mg 9-17 tablet by ity of tablet 00:00: mouth [place] 00 every 6 Medical (six) Branch hours. loperamide 2020-0 Yes [id number] 2mg Take 1 Univers 2 mg 9-17 capsule by ity of capsule 00:00: mouth 00 daily. Medical Branch methocarbam 2020-0 Yes [id number] 500mg Take 1 Univers oL 500 mg 9-17 tablet by ity o f tablet 00:00: mouth 00 (four) Medical times Branch daily. ibuprofen 2020-0 Yes [id number] 600mg Take 1 [facility] 600 mg 9-17 tablet by ity of tablet 00:00: mouth [place] 00 every 6 Medical (six) Branch hours. loperamide 2020-0 Yes [id number] 2mg Take 1 [facility] 2 mg 9-17 capsule by ity of capsule 00:00: mouth 00 daily. Medical Branch methocarbam 2020-0 Yes [id number] 500mg Take 1 Univers oL 500 mg 9-17 tablet by ity o f tablet 00:00: mouth (four) Medical times Branch daily. ibuprofen 2020-0 Yes [id number] 600mg Take 1 [facility] 600 mg 9-17 tablet by ity of tablet 00:00: mouth 00 every 6 Medical (six) Branch hours. loperamide 2020-0 Yes [id number] 2mg Take 1 [facility] 2 mg 9-17 capsule by ity of capsule 00:00: mouth 00 daily. Medical Branch methocarbam 2020-0 Yes [id number] 500mg Take 1 [facility] oL 500 mg 9-17 tablet by ity o f tablet 00:00: mouth (four) Medical times Branch daily. ibuprofen 2020-0 Yes [id number] 600mg Take 1 [facility] 600 mg 9-17 tablet by ity of tablet 00:00: mouth [place] 00 every 6 Medical (six) Branch hours. loperamide 2020-0 Yes [id number] 2mg Take 1 [facility] 2 mg 9-17 capsule by ity of capsule 00:00: mouth 00 daily. Medical Branch methocarbam 2020-0 Yes [id number] 500mg Take 1 Univers oL 500 mg 9-17 tablet by ity o f tablet 00:00: mouth (four) Medical times Branch daily. ibuprofen 2020-0 Yes [id number] 600mg Take 1 [facility] 600 mg 9-17 tablet by ity of tablet 00:00: mouth [place] 00 every 6 Medical (six) Branch hours. loperamide 2020-0 Yes [id number] 2mg Take 1 [facility] 2 mg 9-17 capsule by ity of capsule 00:00: mouth [place] 00 daily. Medical Branch methocarbam 2020-0 Yes [id number] 500mg Take 1 Univers oL 500 mg 9-17 tablet by ity o f tablet 00:00: mouth 4 00 (four) Medical times Branch daily. ibuprofen 2020-0 Yes [id number] 600mg Take 1 [facility] 600 mg 9-17 tablet by ity of tablet 00:00: mouth [place] 00 every 6 Medical (six) Branch hours. loperamide 2020-0 Yes [id number] 2mg Take 1 [facility] 2 mg 9-17 capsule by ity of capsule 00:00: mouth 00 daily. Medical Branch methocarbam 2020-0 Yes [id number] 500mg Take 1 [facility] oL 500 mg 9-17 tablet by ity o f tablet 00:00: mouth (four) Medical times Branch daily. ibuprofen 2020-0 Yes [id number] 600mg Take 1 [facility] 600 mg 9-17 tablet by ity of tablet 00:00: mouth [place] 00 every 6 Medical (six) Branch hours. loperamide 2020-0 Yes [id number] 2mg Take 1 [facility] 2 mg 9-17 capsule by ity of capsule 00:00: mouth 00 daily. Medical Branch methocarbam 2020-0 Yes [id number] 500mg Take 1 [facility] oL 500 mg 9-17 tablet by ity o f tablet 00:00: mouth (four) Medical times Branch daily. ibuprofen 2020-0 Yes [id number] 600mg Take 1 [facility] 600 mg 9-17 tablet by ity of tablet 00:00: mouth [place] 00 every 6 Medical (six) Branch hours. loperamide 2020-0 Yes [id number] 2mg Take 1 [facility] 2 mg 9-17 capsule by ity of capsule 00:00: mouth [place] 00 daily. Medical Branch methocarbam 2020-0 Yes [id number] 500mg Take 1 [facility] oL 500 mg 9-17 tablet by ity o f tablet 00:00: mouth 00 (four) Medical times Branch daily. ibuprofen 2020-0 Yes [id number] 600mg Take 1 [facility] 600 mg 9-17 tablet by ity of tablet 00:00: mouth [place] 00 every 6 Medical (six) Branch hours. loperamide 2020-0 Yes [id number] 2mg Take 1 [facility] 2 mg 9-17 capsule by ity of capsule 00:00: mouth [place] 00 daily. Medical Branch methocarbam 2020-0 Yes [id number] 500mg Take 1 [facility] oL 500 mg 9-17 tablet by ity o f tablet 00:00: mouth 4 (four) Medical times Branch daily. ibuprofen 2020-0 Yes [id number] 600mg Take 1 [facility] 600 mg 9-17 tablet by ity of tablet 00:00: mouth [place] 00 every 6 Medical (six) Branch hours. loperamide 2020-0 Yes [id number] 2mg Take 1 [facility] 2 mg 9-17 capsule by ity of capsule 00:00: mouth [place] 00 daily. Medical Branch methocarbam 2020-0 Yes [id number] 500mg Take 1 [facility] oL 500 mg 9-17 tablet by ity o f tablet 00:00: mouth (four) Medical times Branch daily. ibuprofen 2020-0 Yes [id number] 600mg Take 1 [facility] 600 mg 9-17 tablet by ity of tablet 00:00: mouth [place] 00 every 6 Medical (six) Branch hours. loperamide 2020-0 Yes [id number] 2mg Take 1 [facility] 2 mg 9-17 capsule by ity of capsule 00:00: mouth [place] 00 daily. Medical Branch methocarbam 2020-0 Yes [id number] 500mg Take 1 [facility] oL 500 mg 9-17 tablet by ity o f tablet 00:00: mouth (four) Medical times Branch daily. ibuprofen 2020-0 Yes [id number] 600mg Take 1 [facility] 600 mg 9-17 tablet by ity of tablet 00:00: mouth [place] 00 every 6 Medical (six) Branch hours. loperamide 2020-0 Yes [id number] 2mg Take 1 [facility] 2 mg 9-17 capsule by ity of capsule 00:00: mouth [place] 00 daily. Medical Branch methocarbam 2020-0 Yes [id number] 500mg Take 1 [facility] oL 500 mg 9-17 tablet by ity o f tablet 00:00: mouth (four) Medical times Branch daily. ibuprofen 2020-0 Yes [id number] 600mg Take 1 [facility] 600 mg 9-17 tablet by ity of tablet 00:00: mouth [place] 00 every 6 Medical (six) Branch hours. loperamide 2020-0 Yes [id number] 2mg Take 1 [facility] 2 mg 9-17 capsule by ity of capsule 00:00: mouth [place] 00 daily. Medical Branch methocarbam 2020-0 Yes [id number] 500mg Take 1 [facility] oL 500 mg 9-17 tablet by ity o f tablet 00:00: mouth (four) Medical times Branch daily. ibuprofen 2020-0 Yes [id number] 600mg Take 1 [facility] 600 mg 9-17 tablet by ity of tablet 00:00: mouth [place] 00 every 6 Medical (six) Branch hours. loperamide 2020-0 Yes [id number] 2mg Take 1 [facility] 2 mg 9-17 capsule by ity of capsule 00:00: mouth [place] 00 daily. Medical Branch methocarbam 2020-0 Yes [id number] 500mg Take 1 [facility] oL 500 mg 9-17 tablet by ity o f tablet 00:00: mouth (four) Medical times Branch daily. ibuprofen 2020-0 Yes [id number] 600mg Take 1 [facility] 600 mg 9-17 tablet by ity of tablet 00:00: mouth 00 every 6 Medical (six) Branch hours. loperamide 2020-0 Yes [id number] 2mg Take 1 [facility] 2 mg 9-17 capsule by ity of capsule 00:00: mouth 00 daily. Medical Branch methocarbam 2020-0 Yes [id number] 500mg Take 1 [facility] oL 500 mg 9-17 tablet by ity o f tablet 00:00: mouth (four) Medical times Branch daily. ibuprofen 2020-0 Yes [id number] 600mg Take 1 [facility] 600 mg 9-17 tablet by ity of tablet 00:00: mouth 00 every 6 Medical (six) Branch hours. loperamide 2020-0 Yes [id number] 2mg Take 1 [facility] 2 mg 9-17 capsule by ity of capsule 00:00: mouth 00 daily. Medical Branch methocarbam 2020-0 Yes [id number] 500mg Take 1 [facility] oL 500 mg 9-17 tablet by ity o f tablet 00:00: mouth (four) Medical times Branch daily. ibuprofen 2020-0 Yes [id number] 600mg Take 1 [facility] 600 mg 9-17 tablet by ity of tablet 00:00: mouth [place] 00 every 6 Medical (six) Branch hours. loperamide 2020-0 Yes [id number] 2mg Take 1 [facility] 2 mg 9-17 capsule by ity of capsule 00:00: mouth 00 daily. Medical Branch methocarbam 2020-0 Yes [id number] 500mg Take 1 [facility] oL 500 mg 9-17 tablet by ity o f tablet 00:00: mouth 4 (four) Medical times Branch daily. ibuprofen 2020-0 Yes [id number] 600mg Take 1 [facility] 600 mg 9-17 tablet by ity of tablet 00:00: mouth [place] 00 every 6 Medical (six) Branch hours. methocarbam 2020-0 Yes [id number] 500mg Take 1 [facility] oL 500 mg 9-17 tablet by ity o f tablet 00:00: mouth 4 00 (four) Medical times Branch daily. ibuprofen 2020-0 Yes [id number] 600mg Take 1 [facility] 600 mg 9-17 tablet by ity of tablet 00:00: mouth [place] 00 every 6 Medical (six) Branch hours. methocarbam 2020-0 Yes [id number] 500mg Take 1 [facility] oL 500 mg 9-17 tablet by ity o f tablet 00:00: mouth (four) Medical times Branch daily. ibuprofen 2020-0 Yes [id number] 600mg Take 1 [facility] 600 mg 9-17 tablet by ity of tablet 00:00: mouth [place] 00 every 6 Medical (six) Branch hours. methocarbam 2020-0 Yes [id number] 500mg Take 1 [facility] oL 500 mg 9-17 tablet by ity o f tablet 00:00: mouth (four) Medical times Branch daily. ibuprofen 2020-0 Yes [id number] 600mg Take 1 [facility] 600 mg 9-17 tablet by ity of tablet 00:00: mouth [place] 00 every 6 Medical (six) Branch hours. methocarbam 2020-0 Yes [id number] 500mg Take 1 [facility] oL 500 mg 9-17 tablet by ity o f tablet 00:00: mouth 4 (four) Medical times Branch daily. acetaminoph 2020-0 2020- No [id number] 650mg Take 2 [facility] en 325 mg 9-17 09-18 tablets by ity of tablet 00:00: 04:59 mouth [place] 00 :00 every 6 Medical (six) Branch hours. acetaminoph 2020-0 2020- No [id number] 650mg Take 2 [facility] en 325 mg 9-17 09-18 tablets by ity of tablet 00:00: 04:59 mouth [place] 00 :00 every 6 Medical (six) Branch hours. acetaminoph 2020-0 2020- No [id number] 650mg Take 2 [facility] en 325 mg 9-17 09-18 tablets by ity of tablet 00:00: 04:59 mouth [place] 00 :00 every 6 Medical (six) Branch hours. acetaminoph 2020- No [id number] 650mg Take 2 [facility] en 325 mg 9-17 09-18 tablets by ity of tablet 00:00: 04:59 mouth [place] 00 :00 every 6 Medical (six) Branch hours. acetaminoph 2020- No [id number] 650mg Take 2 [facility] en 325 mg 9-17 09-18 tablets by ity of tablet 00:00: 04:59 mouth [place] 00 :00 every 6 Medical (six) Branch hours. acetaminoph 2020- No [id number] 650mg Take 2 [facility] en 325 mg 9-17 09-18 tablets by ity of tablet 00:00: 04:59 mouth [place] 00 :00 every 6 Medical (six) Branch hours. acetaminoph 2020- No [id number] 650mg Take 2 [facility] en 325 mg 9-17 09-18 tablets by ity of tablet 00:00: 04:59 mouth [place] 00 :00 every 6 Medical (six) Branch hours. acetaminoph 2020- No [id number] 650mg Take 2 [facility] en 325 mg 9-17 09-18 tablets by ity of tablet 00:00: 04:59 mouth [place] 00 :00 every 6 Medical (six) Branch hours. acetaminoph 2020- No [id number] 650mg Take 2 [facility] en 325 mg 9-17 09-18 tablets by ity of tablet 00:00: 04:59 mouth [place] 00 :00 every 6 Medical (six) Branch hours. acetaminoph 2020- No [id number] 650mg Take 2 [facility] en 325 mg 9-17 09-18 tablets by ity of tablet 00:00: 04:59 mouth [place] 00 :00 every 6 Medical (six) Branch hours. acetaminoph 2020- No [id number] 650mg Take 2 [facility] en 325 mg 9-17 09-18 tablets by ity of tablet 00:00: 04:59 mouth [place] 00 :00 every 6 Medical (six) Branch hours. acetaminoph 2020- No [id number] 650mg Take 2 [facility] en 325 mg 9-17 09-18 tablets by ity of tablet 00:00: 04:59 mouth [place] 00 :00 every 6 Medical (six) Branch hours. acetaminoph 0 2020- No [id number] 650mg Take 2 [facility] en 325 mg 9-17 09-18 tablets by ity of tablet 00:00: 04:59 mouth [place] 00 :00 every 6 Medical (six) Branch hours. acetaminoph 2020- No [id number] 650mg Take 2 [facility] en 325 mg 9-17 09-18 tablets by ity of tablet 00:00: 04:59 mouth [place] 00 :00 every 6 Medical (six) Branch hours. acetaminoph 2020- No [id number] 650mg Take 2 [facility] en 325 mg 9-17 09-18 tablets by ity of tablet 00:00: 04:59 mouth [place] 00 :00 every 6 Medical (six) Branch hours. acetaminoph 2020- No [id number] 650mg Take 2 [facility] en 325 mg 9-17 09-18 tablets by ity of tablet 00:00: 04:59 mouth [place] 00 :00 every 6 Medical (six) Branch hours. acetaminoph 2020- No [id number] 650mg Take 2 [facility] en 325 mg 9-17 09-18 tablets by ity of tablet 00:00: 04:59 mouth [place] 00 :00 every 6 Medical (six) Branch hours. acetaminoph 2020- No [id number] 650mg Take 2 [facility] en 325 mg 9-17 09-18 tablets by ity of tablet 00:00: 04:59 mouth [place] 00 :00 every 6 Medical (six) Branch hours. acetaminoph 2019-0 2020- No [id number] 650mg Take 2 [facility] en 325 mg 9-17 09-18 tablets by ity of tablet 00:00: 04:59 mouth [place] 00 :00 every 6 Medical (six) Branch hours. acetaminoph 2020-0 2020- No [id number] 650mg Take 2 [facility] en 325 mg 9-17 09-18 tablets by ity of tablet 00:00: 04:59 mouth [place] 00 :00 every 6 Medical (six) Branch hours. acetaminoph 2020-2020- No [id number] 650mg Take 2 [facility] en 325 mg 9-17 09-18 tablets by ity of tablet 00:00: 04:59 mouth [place] 00 :00 every 6 Medical (six) Branch hours. acetaminoph 2020- No [id number] 650mg Take 2 [facility] en 325 mg 9-17 09-18 tablets by ity of tablet 00:00: 04:59 mouth [place] 00 :00 every 6 Medical (six) Branch hours. acetaminoph 2020- No [id number] 650mg Take 2 [facility] en 325 mg 9-17 09-18 tablets by ity of tablet 00:00: 04:59 mouth [place] 00 :00 every 6 Medical (six) Branch hours. acetaminoph 2020- No [id number] 650mg Take 2 [facility] en 325 mg 9-17 09-18 tablets by ity of tablet 00:00: 04:59 mouth [place] 00 :00 every 6 Medical (six) Branch hours. acetaminoph 2020- No [id number] 650mg Take 2 [facility] en 325 mg 9-17 09-18 tablets by ity of tablet 00:00: 04:59 mouth [place] 00 :00 every 6 Medical (six) Branch hours. acetaminoph 2020- No [id number] 650mg Take 2 [facility] en 325 mg 9-17 09-18 tablets by ity of tablet 00:00: 04:59 mouth [place] 00 :00 every 6 Medical (six) Branch hours. acetaminoph 2020- No [id number] 650mg Take 2 [facility] en 325 mg 9-17 09-18 tablets by ity of tablet 00:00: 04:59 mouth [place] 00 :00 every 6 Medical (six) Branch hours. acetaminoph 2020- No [id number] 650mg Take 2 [facility] en 325 mg 9-17 09-18 tablets by ity of tablet 00:00: 04:59 mouth [place] 00 :00 every 6 Medical (six) Branch hours. acetaminoph 2020-2020- No [id number] 650mg Take 2 [facility] en 325 mg 9-17 09-18 tablets by ity of tablet 00:00: 04:59 mouth [place] 00 :00 every 6 Medical (six) Branch hours. acetaminoph 2020- No [id number] 650mg Take 2 [facility] en 325 mg 9-17 09-18 tablets by ity of tablet 00:00: 04:59 mouth [place] 00 :00 every 6 Medical (six) Branch hours. acetaminoph 2020- No [id number] 650mg Take 2 [facility] en 325 mg 9-17 09-18 tablets by ity of tablet 00:00: 04:59 mouth [place] 00 :00 every 6 Medical (six) Branch hours. acetaminoph 2020- No [id number] 650mg Take 2 [facility] en 325 mg 9-17 09-18 tablets by ity of tablet 00:00: 04:59 mouth [place] 00 :00 every 6 Medical (six) Branch hours. acetaminoph 2020- No [id number] 650mg Take 2 [facility] en 325 mg 9-17 09-18 tablets by ity of tablet 00:00: 04:59 mouth [place] 00 :00 every 6 Medical (six) Branch hours. acetaminoph 2020- No [id number] 650mg Take 2 [facility] en 325 mg 9-17 09-18 tablets by ity of tablet 00:00: 04:59 mouth [place] 00 :00 every 6 Medical (six) Branch hours. acetaminoph 2020- No [id number] 650mg Take 2 [facility] en 325 mg 9-17 09-18 tablets by ity of tablet 00:00: 04:59 mouth [place] 00 :00 every 6 Medical (six) Branch hours. acetaminoph 2020- No [id number] 650mg Take 2 [facility] en 325 mg 9-17 09-18 tablets by ity of tablet 00:00: 04:59 mouth [place] 00 :00 every 6 Medical (six) Branch hours. acetaminoph 2020- No [id number] 650mg Take 2 [facility] en 325 mg 9-17 09-18 tablets by ity of tablet 00:00: 04:59 mouth [place] 00 :00 every 6 Medical (six) Branch hours. acetaminoph 2020- No [id number] 650mg Take 2 [facility] en 325 mg 9-17 09-18 tablets by ity of tablet 00:00: 04:59 mouth [place] 00 :00 every 6 Medical (six) Branch hours. acetaminoph 2020- No [id number] 650mg Take 2 [facility] en 325 mg 9-17 09-18 tablets by ity of tablet 00:00: 04:59 mouth [place] 00 :00 every 6 Medical (six) Branch hours. acetaminoph 2020- No [id number] 650mg Take 2 [facility] en 325 mg 9-17 09-18 tablets by ity of tablet 00:00: 04:59 mouth [place] 00 :00 every 6 Medical (six) Branch hours. acetaminoph 2019-0 2020- No [id number] 650mg Take 2 [facility] en 325 mg 9-17 09-18 tablets by ity of tablet 00:00: 04:59 mouth [place] 00 :00 every 6 Medical (six) Branch hours. acetaminoph 2019-0 2020- No [id number] 650mg Take 2 [facility] en 325 mg 9-17 09-18 tablets by ity of tablet 00:00: 04:59 mouth [place] 00 :00 every 6 Medical (six) Branch hours. acetaminoph 2020-0 2020- No [id number] 650mg Take 2 [facility] en 325 mg 9-17 09-18 tablets by ity of tablet 00:00: 04:59 mouth [place] 00 :00 every 6 Medical (six) Branch hours. acetaminoph 2019-2019- No [id number] 650mg Take 2 Univers en 325 mg 9-17 12-16 tablets by ity of tablet 00:00: 00:00 mouth [place] 00 :00 every 6 Medical (six) Branch hours. loperamide 2019-2019- No [id number] 2mg Take 1 Univers 2 mg 9-17 [...] days. Indication s: acute pain HYDROmorpho 2020-0 2019- No [id number] 2mg Take 1 Uni vers [...] Medi ryann (8 %) IV 07/31/20 at [facility] h Piggyback 4 0730, g Routine [...] 0.45% 2020-0 2020- No IV Univers NaCl 07-29 Infusion, ity of (1/2NS) 1 L 23:00: 11:38 at 100 [place] + KCL 20 00 :43 mL/hr, Medical mEq CONTINUOUS Branch , Starting Wed07/29/20 at 1800, Until Wed07/31/20 at 0638, Routine lactated 2020-0 2020- No 1000mL at 999 [facility] ers ringers IV 07-2914 mL/hr, ity of infusion 22:30: 22:14 1,000 mL, [place] 1,000 mL 00 :00 Intravenou Medic al s, ONCE, 1 Branch dose, [place] [facility] 07/29/20 at 1730, Routine ibuprofen 2020-0 Yes 600mg 600 mg, [facility] ers (IBU) 07-29 Oral, Q6H ity of tablet 600 17:00: ABX, First [place] mg 00 dose on [facility] 07/29/20 at 1200, Until Discontinu ed, Routine NaCl 0.9% 2020-0 Yes 10mL 10 mL, Univer s (NS) 07-29 Slow IV ity of injection 15:59: Push, PRN, [place] 10 mL 00 Starting [facility] 07/29/20 at 1059, Until Discontinu ed, Routine, line maintenanc e lidocaine 2020-0 Yes 5mL 5 mL, Univers 1% (PF) 07-29 Subcutaneo ity of (XYLOCAINE) 15:59: us, PRN, [place] injection 5 00 [address] mL [facility] 07/29/20 at 1059, Until Discontinu ed, Routine, Local anesthesia pantoprazol 2020-0 Yes 40mg 40 mg, Univ ers e 07-29 Oral, ity of (PROTONIX) 14:00: DAILY, [place] EC tablet 00 First dose Medi ryann [address] [facility] 07/29/20 at 0900, Until Discontinu ed, Routine acetaminoph 2020-0 Yes 650mg 650 mg, Un thor en 07-29 Oral, Q6H ity of (TYLENOL) 14:00: ABX, First [place] tablet 650 00 dose on Medica l mg [facility] 07/29/20 at 0900, Until Discontinu ed, Routine KCL 2020-0 2020- No 20meq 20 mEq, Univers (KLOR-CON 07-29 Oral, ity of M20) tablet 13:45: 13:50 ONCE, 1 [place] 20 mEq 00 :00 dose, [facility] 07/29/20 at Branch 0845, Routine methocarbam 2020-0 Yes 500mg 500 mg, Un thor oL -14 Oral, QID, ity of (ROBAXIN) 13:00: First [...]
F aculty member approving Restricted medication : DARREN CHUN metoprolol 2020-0 2020- No 5mg 5 mg, IV Un thor (LOPRESSOR) 07-29 Push, Q8H, i ty of injection 5 01:00: 12:37 First dose [place] mg 00 :04 (after Medical last Branch modificati on) on [place] 07/28/20 at 2000, Until Discontinu ed, Routine methocarbam 2020-0 2020- No 1g 1,000 mg U nivers oL 07-28 (1 g), IV ity of (ROBAXIN) 22:00: 21:57 Piggyback, [place] 1,000 mg in 00 :00 ONCE, 1 Medic al NaCl 0.9% dose, [place] Bran h (NS) 07/28/20 at piggyback 1700, 100 mL acetaminoph 2020-0 2020- No 1000mg 1,000 mg, Univers en ADULT 07-28 IV ity of (OFIRMEV) 15:00: 08:16 Infusion, [place] injection 00 :00 Administer Medi ryann 1,000 mg over 15 Branch Minutes, Q8H ABX, 3 doses, First dose (after last reorder) on [place] 07/28/20 at 1000, Last dose on [place] [facility] 07/29/20 at 0200, Routine
Indicatio n: Non-periop erative Patient
Approved by: Per Policy (NPO Status) ALPRAZolam 2020-0 2020- No .5mg 0.5 mg, Uni vers (XANAX) 07-28 Oral, PRN, ity o f tablet 0.5 13:53: 16:59 1 dose, [place] mg 25 :00 Starting [facility] Branch 07/28/20 at 0853, Until Discontinu ed, Routine, anxiety ALPRAZolam 2019-0 Yes 1mg 1 mg, Univer s (XANAX) 07-28 Oral, ity of tablet 1 mg 13:52: QHSPRN, [place] 54 Starting [facility] 07/28/20 at 0852, Until Discontinu ed, Routine, Insomnia, anxiety D5W 0.45% 2019- 2020- No IV Univers NaCl 07-28 Infusion, ity of (1/2NS) 1 L 12:45: 12:37 at 100 [place] + KCL 20 00 :04 mL/hr, Medical mEq CONTINUOUS Branch , Starting 07/28/20 at 0745, Until 07/29/20 at 0737, Routine acetaminoph 2020- No 1000mg 1,000 mg, Univers en ADULT 07-27 IV ity of (OFIRMEV) 14:45: 07:32 Infusion, [place] injection 00 :00 Administer Medi ryann 1,000 mg over 15 Branch Minutes, Q8H ABX, 3 doses, First dose (after last reorder) on 07/27/20 at 0945, Last dose on [place] 07/28/20 at 0145, Routine
Indicatio n: Non-periop erative Patient
Approved by: Per Policy (NPO Status) LORazepam 2020- No .5mg 0.5 mg, Univ ers (ATIVAN) 07-26 Slow IV ity of injection 23:30: 01:34 Push, [place] 0.5 mg 00 :00 ONCE, 1 Medical dose, Fri Branch 07/26/20 at 1830, Routine acetaminoph 2019- 2020- No 1000mg 1,000 mg, Univers en ADULT 07-26 IV ity of (OFIRMEV) 18:45: 11:34 Infusion, [place] injection 00 :00 Administer Medi ryann 1,000 mg over 15 Branch Minutes, Q8H ABX, 3 doses, First dose (after last reorder) on Wed07/26/20 at 1345, Last dose on 07/27/20 at 0545, Routine
Indicatio n: Non-periop erative Patient
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
Us e approved by (Faculty): PAIN SERVICE acetaminoph 2020- No 1000mg 1,000 mg, Univers en ADULT 07-26 IV ity of ([facility]) 00:21: 00:44 Infusion, [place] injection 16 :00 Administer Medi ryann 1,000 mg over 15 Branch Minutes, PRN, 1 dose, Starting [place] 07/25/20 at 1921, Until [place] 07/25/20 at 1944, Routine, Pain (scale 4-6)
In dication: Perioperat pasha Patient naloxone 2019- Yes .1mg 0.1 mg, Univer s (NARCAN) 07-25 Slow IV ity of injection 23:36: Push, [place] 0.1 mg 05 SEE-INSTRU Medical CTIONS, Branch Starting [facility] 07/25/20 at 1836, Until Discontinu ed, Routine acetaminoph 2020- No 1000mg 1,000 mg, [facility] en ADULT 07-25 IV ity of ([facility]) 12:45: 12:44 Infusion, [place] injection 00 :00 Administer Medi ryann 1,000 mg over 15 Branch Minutes, Q8H ABX, 3 doses, First dose (after last reorder) on [place] 07/25/20 at 0745, Last dose on [place] 07/25/20 at 2345, Routine
Indicatio n: Non-periop erative Patient
Approved by: Per Policy (NPO Status) pantoprazol 2019-0 2020- No 40mg 40 mg, IV Univers e 07-24 Piggyback, ity of (PROTONIX) 13:00: 12:38 Q12H, [place] 40 mg in 00 :10 First dose Medic al NaCl 0.9% on Wed Branch (NS) 100 mL 07/24/20 at MINI-BAG 0800, Until Discontinu ed, 100 mL metoprolol 2019- 2020- No 25mg 25 mg, Univ ers tartrate 07-24 Oral, BID, ity of (LOPRESSOR) 13:00: 23:37 First dose [place] tablet 25 00 :55 on Wed Medical mg 07/24/20 at Branch 0800, Until Discontinu ed, Routine acetaminoph 0 2020- No 1000mg 1,000 mg, Univers en [...] Branch , Starting Wed07/24/20 at 0130, Until [place] 07/28/20 at 0739, Routine morpHINE 2019-0 2020- No 4mg 4 mg, Slow Un thor injection 4 07-24 IV Push, ity of mg 06:19: 14:48 Q3HPRN, [place] 51 :46 Starting Medical [facility] 07/24/20 Branch at 0119, Until [place] 07/28/20 at 0948, Routine, Pain (scale 7-10) morpHINE 2020-0 2020- No 4mg 4 mg, Slow Un thor injection 4 07-24 IV Push, ity of mg 03:45: 02:42 ONCE, 1 [place] 00 :00 dose, Tue Medical 07/23/20 at Branch 2245, STAT NaCl 0.9% 2020-0 2020- No 500mL at 999 Univ ers (NS) bolus 07-24 mL/hr, 500 it y of infusion 03:45: 03:41 mL, IV [place] 500 mL 00 :00 Infusion, Medical ONCE, 1 Spray dose, 07/23/20 at 2245, STAT NaCl 0.9% 2019-2019- No 1000mL at 150 Uni vers (NS) IV 07-24 mL/hr, ity of infusion 03:45: 09:49 Intravenou [place] 1,000 mL 00 :01 s, Medical CONTINUOUS Spray , Starting 07/23/20 at 2245, Until 07/24/20 at 0449, Routine proMETHazin 2019- 2020- No 12.5mg 12.5 mg, Univers e 07-24 IV ity of (PHENERGAN) 01:30: 01:30 Piggyback, [place] 12.5 mg in 00 :00 ONCE, 1 Medica l NaCl 0.9% dose, Tue Branc h (NS) 50 mL 07/23/20 at piggyback 2030, 50 mL morpHINE 2019-2019- No 4mg 4 mg, Slow Un thor injection 4 07-24 IV Push, ity of mg 01:15: 00:22 ONCE, 1 [place] 00 :00 dose, [facility] 07/23/20 at Branch 2015, STAT morpHINE 2019-0 2020- No 4mg 4 mg, Slow Un thor injection 4 07-23 IV Push, ity of mg 22:30: 21:20 ONCE, 1 [place] 00 :00 dose, [facility] 07/23/20 at Branch 1730, STAT piperacilli 2019- 2020- No 3.375g 3.375 g, Univers n-tazobacta 07-23 IV ity of m (ZOSYN) 22:30: 22:14 Piggyback, [place] 3.375 g in 00 :00 ONCE, 1 Medica l NaCl 0.9% dose, Tue Branc h (NS) 100 mL 07/23/20 at MINI-BAG 1730, 100 mL
Reas on for Anti-Infec tive: Documented Infection< br>Documen carl Infection Site: Abdominal< br>Duratio n of Therapy: 7 days iohexol 2019-0 2020- No 114mL 114 mL, Unive rs (OMNIPAQUE 07-23 Intravenou it y of 350 20:46: 20:47 s, ONCE, 1 [place] BULK-150 00 :00 dose, Tue Medica l mL) 07/23/20 at Branch injection 1600, 114 mL Routine methylPREDN 2019-0 2020- No 40mg 40 mg, IV Univers ISolone sod 07-23 Piggyback, i ty of succ 19:15: 19:10 ONCE, 1 [place] (SOLU-MEDRO 00 :00 dose, Tue Med ical L (PF)) 07/23/20 at Branch injection 1415, STAT 40 mg diphenhydrA 2020- No 25mg 25 mg, Uni vers MINE 07-23 Slow IV ity of (BENADRYL) 19:15: 19:18 Push, [place] injection 00 :00 ONCE, 1 Medical 25 mg dose, Tue Branch 07/23/20 at 1415, STAT morpHINE 2019-0 2020- No 4mg 4 mg, Slow Un thor injection 4 07-23 IV Push, ity of mg 19:15: 18:59 ONCE, 1 [place] 00 :00 dose, Tue Medical 07/23/20 at Branch 1415, STAT famotidine 2019-0 2020- No 20mg 20 mg, Univ ers (PEPCID 07-23 Intravenou ity o f (PF)) 18:45: 19:02 s, ONCE, 1 [place] injection 00 :00 dose, Tue Medic al 20 mg 07/23/20 at Branch 1345, LUISA proMETHazin 2019-0 2020- No 12.5mg 12.5 mg, Univers e 07-23 IV ity of (PHENERGAN) 18:45: 19:01 Piggyback, [place] 12.5 mg in 00 :00 ONCE, 1 Medica l NaCl 0.9% dose, Tue Branc h (NS) 50 mL 07/23/20 at piggyback 1345, 50 mL NaCl 0.9% 2019-0 2020- No 1000mL at 999 Uni vers (NS) bolus 07-23 mL/hr, ity of infusion 17:45: 22:20 1,000 [...] daily. Branch ease suspension metoprolol 2018-11 Yes [id number] 25mg Take 1 Un thor tartrate 25 0-10 tablet by ity of mg tablet 00:00: mouth 2 [place] 00 (two) Medical times Branch daily. metoprolol 2018-11 Yes [id number] 25mg Take 1 Un thor tartrate 25 0-10 tablet by ity of mg tablet 00:00: mouth 2 [place] 00 (two) Medical times Branch daily. metoprolol 2018-11 Yes [id number] 25mg Take 1 Un thor tartrate 25 0-10 tablet by ity of mg tablet 00:00: mouth 2 [place] 00 (two) Medical times Branch daily. acetaminoph 2018-11 Yes [id number] 1{tbl} Take 1 Univers en-codeine 0-10 tablet by ity of (TYLENOL-CO 00:00: mouth [place] DEINE #4) 00 every 4 Medical 300-60 mg (four) Branch tablet hours as needed for Pain. levoFLOXaci 2018-11 Yes [id number] 750mg Take 1 Univers n 750 mg 0-10 tablet by ity of tablet 00:00: mouth [place] 00 every 24 Medical (twenty-fo Branch ur) hours. metoprolol 2018-11 Yes [id number] 25mg Take 1 Un thor tartrate 25 0-10 tablet by ity of mg tablet 00:00: mouth 2 [place] 00 (two) Medical times Branch daily. metoprolol 2018-11 Yes [id number] 25mg Take 1 Un thor tartrate 25 0-10 tablet by ity of mg tablet 00:00: mouth 2 [place] 00 (two) Medical times Branch daily. metoprolol 2018-11 Yes [id number] 25mg Take 1 Un thor tartrate 25 0-10 tablet by ity of mg tablet 00:00: mouth (two) Medical times Branch daily. metoprolol 2018-11 Yes [id number] 25mg Take 1 Un thor tartrate 25 0-10 tablet by ity of mg tablet 00:00: mouth (two) Medical times Branch daily. metoprolol 2018-11 Yes [id number] 25mg Take 1 Un thor tartrate 25 0-10 tablet by ity of mg tablet 00:00: mouth (two) Medical times Branch daily. metoprolol 2018-11 Yes [id number] 25mg Take 1 Un thor tartrate 25 0-10 tablet by ity of mg tablet 00:00: mouth () Medical times Branch daily. metoprolol 2018-11 Yes [id number] 25mg Take 1 Un thor tartrate 25 0-10 tablet by ity of mg tablet 00:00: mouth () Medical times Branch daily. metoprolol 2018-11 Yes [id number] 25mg Take 1 Un thor tartrate 25 0-10 tablet by ity of mg tablet 00:00: mouth (two) Medical times Branch daily. metoprolol 2018-11 Yes [id number] 25mg Take 1 Un thor tartrate 25 0-10 tablet by ity of mg tablet 00:00: mouth () Medical times Branch daily. metoprolol 2018-11 Yes [id number] 25mg Take 1 Un thor tartrate 25 0-10 tablet by ity of mg tablet 00:00: mouth (two) Medical times Branch daily. metoprolol 2018-11 Yes [id number] 25mg Take 1 Un thor tartrate 25 0-10 tablet by ity of mg tablet 00:00: mouth (two) Medical times Branch daily. metoprolol 2018-11 Yes [id number] 25mg Take 1 Un thor tartrate 25 0-10 tablet by ity of mg tablet 00:00: mouth (two) Medical times Branch daily. metoprolol 2018-11 Yes [id number] 25mg Take 1 Un thor tartrate 25 0-10 tablet by ity of mg tablet 00:00: mouth (two) Medical times Branch daily. metoprolol 2018-11 Yes [id number] 25mg Take 1 Un thor tartrate 25 0-10 tablet by ity of mg tablet 00:00: mouth (two) Medical times Branch daily. metoprolol 2018-11 Yes [id number] 25mg Take 1 Un thor tartrate 25 0-10 tablet by ity of mg tablet 00:00: mouth (two) Medical times Branch daily. metoprolol 2018-11 Yes [id number] 25mg Take 1 Un thor tartrate 25 0-10 tablet by ity of mg tablet 00:00: mouth (two) Medical times Branch daily. metoprolol 2018-11 Yes [id number] 25mg Take 1 Un [facility] tartrate 25 0-10 tablet by ity of mg tablet 00:00: mouth (two) Medical times Branch daily. metoprolol 2018-11 Yes [id number] 25mg Take 1 [facility] tartrate 25 0-10 tablet by ity of mg tablet 00:00: mouth (two) Medical times Branch daily. metoprolol 2018-11 Yes [id number] 25mg Take 1 [facility] tartrate 25 0-10 tablet by ity of mg tablet 00:00: mouth (two) Medical times Branch daily. metoprolol 2018-11 Yes [id number] 25mg Take 1 Un [facility] tartrate 25 0-10 tablet by ity of mg tablet 00:00: mouth (two) Medical times Branch daily. metoprolol 2018-11 Yes [id number] 25mg Take 1 Un [facility] tartrate 25 0-10 tablet by ity of mg tablet 00:00: mouth (two) Medical times Branch daily. metoprolol 2018-11 Yes [id number] 25mg Take 1 Un [facility] tartrate 25 0-10 tablet by ity of mg tablet 00:00: mouth (two) Medical times Branch daily. metoprolol 2018-11 Yes [id number] 25mg Take 1 [facility] tartrate 25 0-10 tablet by ity of mg tablet 00:00: mouth (two) Medical times Branch daily. metoprolol 2018-11 Yes [id number] 25mg Take 1 Un [facility] tartrate 25 0-10 tablet by ity of mg tablet 00:00: mouth (two) Medical times Branch daily. metoprolol 2018-11 Yes [id number] 25mg Take 1 Un [facility] tartrate 25 0-10 tablet by ity of mg tablet 00:00: mouth (two) Medical times Branch daily. metoprolol 2018-11 Yes [id number] 25mg Take 1 Un [facility] tartrate 25 0-10 tablet by ity of mg tablet 00:00: mouth (two) Medical times Branch daily. metoprolol 2018-11 Yes [id number] 25mg Take 1 Un [facility] tartrate 25 0-10 tablet by ity of mg tablet 00:00: mouth (two) Medical times Branch daily. metoprolol 2018-11 Yes [id number] 25mg Take 1 Un thor tartrate 25 0-10 tablet by ity of mg tablet 00:00: mouth (two) Medical times Branch daily. metoprolol 2018-11 Yes [id number] 25mg Take 1 Un [facility] tartrate 25 0-10 tablet by ity of mg tablet 00:00: mouth (two) Medical times Branch daily. metoprolol 2018-11 Yes [id number] 25mg Take 1 Un thor tartrate 25 0-10 tablet by ity of mg tablet 00:00: mouth () Medical times Branch daily. metoprolol 2018-11 Yes [id number] 25mg Take 1 Un [facility] tartrate 25 0-10 tablet by ity of mg tablet 00:00: mouth (two) Medical times Branch daily. metoprolol 2018-11 Yes [id number] 25mg Take 1 Un [facility] tartrate 25 0-10 tablet by ity of mg tablet 00:00: mouth (two) Medical times Branch daily. metoprolol 2018-11 Yes [id number] 25mg Take 1 Un [facility] tartrate 25 0-10 tablet by ity of mg tablet 00:00: mouth (two) Medical times Branch daily. metoprolol 2018-11 Yes [id number] 25mg Take 1 Un [facility] tartrate 25 0-10 tablet by ity of mg tablet 00:00: mouth (two) Medical times Branch daily. metoprolol 2018-11 Yes [id number] 25mg Take 1 Un thor tartrate 25 0-10 tablet by ity of mg tablet 00:00: mouth 2 [place] 00 (two) Medical times Branch daily. metoprolol 2018-11 Yes [id number] 25mg Take 1 Un thor tartrate 25 0-10 tablet by ity of mg tablet 00:00: mouth [place] (two) Medical times Branch daily. metoprolol 2018-11 Yes [id number] 25mg Take 1 Un thor tartrate 25 0-10 tablet by ity of mg tablet 00:00: mouth [place] (two) Medical times Branch daily. metoprolol 2018-11 Yes [id number] 25mg Take 1 Un thor tartrate 25 0-10 tablet by ity of mg tablet 00:00: mouth [place] (two) Medical times Branch daily. metoprolol 2018-11 Yes [id number] 25mg Take 1 Un thor tartrate 25 0-10 tablet by ity of mg tablet 00:00: mouth [place] (two) Medical times Branch daily. metoprolol 2018-11 Yes [id number] 25mg Take 1 Un thor tartrate 25 0-10 tablet by ity of mg tablet 00:00: mouth [place] (two) Medical times Branch daily. metoprolol 2018-11 Yes [id number] 25mg Take 1 Un thor tartrate 25 0-10 tablet by ity of mg tablet 00:00: mouth [place] (two) Medical times Branch daily. metoprolol 2018-11 2020- No [id number] 25mg Take 1 U nivers tartrate 25 0-10 12-16 tablet by it y of mg tablet 00:00: 00:[place] :[place] (two) Medical times Branch daily. acetaminoph 2018-11 2020- No [id number] 1{tbl} Take 1 Univers en-codeine 0-10 -17 tablet by ity of (TYLENOL-CO 00:00: 00:[place] DE[place] #4[place] 00 :00 every 4 Medical 300-60 mg (four) Branch tablet hours as needed for Pain. levoFLOXaci 2018-11 2020- No [id number] 750mg Take 1 Univers n 750 mg 0-10 -17 tablet by ity o f tablet 00:00: 00:00 mouth [place] 00 :00 every 24 Medical (twenty-fo Branch ur) hours. proMETHazin 2018-11 Yes [id number] 25mg Take 1 Univers e 25 mg 0-04 tablet by ity of tablet 00:00: mouth [place] 00 every 6 Medical (six) Branch hours as needed for Nausea and Vomiting (N/V). proMETHazin 2018-11 Yes [id number] 25mg Take 1 Univers e 25 mg 0-04 tablet by ity of tablet 00:00: mouth [place] 00 every 6 Medical (six) Branch hours as needed for Nausea and Vomiting (N/V). proMETHazin 2018-11 Yes [id number] 25mg Take 1 Univers e 25 mg 0-04 tablet by ity of tablet 00:00: mouth [place] 00 every 6 Medical (six) Branch hours as needed for Nausea and Vomiting (N/V). proMETHazin 2018-11 Yes [id number] 25mg Take 1 Univers e 25 mg 0-04 tablet by ity of tablet 00:00: mouth [place] 00 every 6 Medical (six) Branch hours as needed for Nausea and Vomiting (N/V). proMETHazin 2018-11 Yes [id number] 25mg Take 1 Univers e 25 mg 0-04 tablet by ity of tablet 00:00: mouth [place] 00 every 6 Medical (six) Branch hours as needed for Nausea and Vomiting (N/V). proMETHazin 2018-11 Yes [id number] 25mg Take 1 Univers e 25 mg 0-04 tablet by ity of tablet 00:00: mouth [place] 00 every 6 Medical (six) Branch hours as needed for Nausea and Vomiting (N/V). proMETHazin 2018-11 Yes [id number] 25mg Take 1 Univers e 25 mg 0-04 tablet by ity of tablet 00:00: mouth [place] 00 every 6 Medical (six) Branch hours as needed for Nausea and Vomiting (N/V). proMETHazin 2018-11 Yes [id number] 25mg Take 1 Univers e 25 mg 0-04 tablet by ity of tablet 00:00: mouth [place] 00 every 6 Medical (six) Branch hours as needed for Nausea and Vomiting (N/V). proMETHazin 2018-11 Yes [id number] 25mg Take 1 Univers e 25 mg 0-04 tablet by ity of tablet 00:00: mouth [place] 00 every 6 Medical (six) Branch hours as needed for Nausea and Vomiting (N/V). proMETHazin 2018-11 Yes [id number] 25mg Take 1 Univers e 25 mg 0-04 tablet by ity of tablet 00:00: mouth [place] 00 every 6 Medical (six) Branch hours as needed for Nausea and Vomiting (N/V). proMETHazin 2018-11 Yes [id number] 25mg Take 1 Univers e 25 mg 0-04 tablet by ity of tablet 00:00: mouth [place] 00 every 6 Medical (six) Branch hours as needed for Nausea and Vomiting (N/V). proMETHazin 2018-11 Yes [id number] 25mg Take 1 Univers e 25 mg 0-04 tablet by ity of tablet 00:00: mouth [place] 00 every 6 Medical (six) Branch hours as needed for Nausea and Vomiting (N/V). proMETHazin 2018-11 Yes [id number] 25mg Take 1 Univers e 25 mg 0-04 tablet by ity of tablet 00:00: mouth [place] 00 every 6 Medical (six) Branch hours as needed for Nausea and Vomiting (N/V). proMETHazin 2018-11 Yes [id number] 25mg Take 1 Univers e 25 mg 0-04 tablet by ity of tablet 00:00: mouth [place] 00 every 6 Medical (six) Branch hours as needed for Nausea and Vomiting (N/V). proMETHazin 2018-11 Yes [id number] 25mg Take 1 Univers e 25 mg 0-04 tablet by ity of tablet 00:00: mouth [place] 00 every 6 Medical (six) Branch hours as needed for Nausea and Vomiting (N/V). proMETHazin 2018-11 Yes [id number] 25mg Take 1 Univers e 25 mg 0-04 tablet by ity of tablet 00:00: mouth [place] 00 every 6 Medical (six) Branch hours as needed for Nausea and Vomiting (N/V). proMETHazin 2018-11 Yes [id number] 25mg Take 1 Univers e 25 mg 0-04 tablet by ity of tablet 00:00: mouth [place] 00 every 6 Medical (six) Branch hours as needed for Nausea and Vomiting (N/V). proMETHazin 2018-11 Yes [id number] 25mg Take 1 Univers e 25 mg 0-04 tablet by ity of tablet 00:00: mouth [place] 00 every 6 Medical (six) Branch hours as needed for Nausea and Vomiting (N/V). proMETHazin 2018-11 Yes [id number] 25mg Take 1 Univers e 25 mg 0-04 tablet by ity of tablet 00:00: mouth [place] 00 every 6 Medical (six) Branch hours as needed for Nausea and Vomiting (N/V). proMETHazin 2018-11 Yes [id number] 25mg Take 1 Univers e 25 mg 0-04 tablet by ity of tablet 00:00: mouth [place] 00 every 6 Medical (six) Branch hours as needed for Nausea and Vomiting (N/V). proMETHazin 2018-11 Yes [id number] 25mg Take 1 Univers e 25 mg 0-04 tablet by ity of tablet 00:00: mouth [place] 00 every 6 Medical (six) Branch hours as needed for Nausea and Vomiting (N/V). proMETHazin 2018-11 Yes [id number] 25mg Take 1 Univers e 25 mg 0-04 tablet by ity of tablet 00:00: mouth [place] 00 every 6 Medical (six) Branch hours as needed for Nausea and Vomiting (N/V). proMETHazin 2018-11 Yes [id number] 25mg Take 1 Univers e 25 mg 0-04 tablet by ity of tablet 00:00: mouth [place] 00 every 6 Medical (six) Branch hours as needed for Nausea and Vomiting (N/V). proMETHazin 2018-11 Yes [id number] 25mg Take 1 Univers e 25 mg 0-04 tablet by ity of tablet 00:00: mouth [place] 00 every 6 Medical (six) Branch hours as needed for Nausea and Vomiting (N/V). proMETHazin 2018-11 Yes [id number] 25mg Take 1 Univers e 25 mg 0-04 tablet by ity of tablet 00:00: mouth [place] 00 every 6 Medical (six) Branch hours as needed for Nausea and Vomiting (N/V). proMETHazin 2018-11 Yes [id number] 25mg Take 1 Univers e 25 mg 0-04 tablet by ity of tablet 00:00: mouth [place] 00 every 6 Medical (six) Branch hours as needed for Nausea and Vomiting (N/V). proMETHazin 2018-11 2020- No [id number] 25mg Take 1 Univers e 25 mg 0-04 11-04 tablet by ity of tablet 00:00: 00:00 mouth [place] 00 :00 every 6 Medical (six) Branch hours as needed for Nausea and Vomiting (N/V). proMETHazin 2019- No 25mg 25 mg, IV Univers e 06-15 Piggyback, ity of (PHENERGAN) 20:15: 19:30 [place]CE, 1 [place] 25 mg in 00 :00 dose, [facility] l NaCl 0.9% 06/15/19 at [facility] h (NS) 50 mL 1515, 50 piggyback mL morpHINE 2018- No 4mg 4 mg, Slow Un thor injection 4 06-15 IV Push, ity of mg 20:15: 19:30 ONCE, 1 [place] 00 :00 dose, [facility] Medical 06/15/19 at Branch 1515, STAT iohexol 2019- No 120mL 120 mL, Unive rs (OMNIPAQUE [...] :00 ONCE, 1 Medical 25 mg dose, [facility] Branch 06/15/19 at 1345, STAT famotidine 2018- No 20mg 20 mg, Univ ers (PEPCID 06-15 Slow IV ity of (PF)) 18:45: 17:47 Push, [place] injection 00 :00 ONCE, 1 Medical 20 mg dose, [facility] Branch 06/15/19 at 1345, LUISA morpHINE 2018- No 4mg 4 mg, Slow Un thor injection 4 06-15 IV Push, ity of mg 18:45: 17:54 ONCE, 1 [place] 00 :00 dose, [facility] Medical 06/15/19 at Branch 1345, STAT proMETHazin 2018- No 25mg 25 mg, IV Univers e 8-01 08-01 Piggyback, ity of (PHENERGAN) 18:45: 17:54 ONCE, 1 [place] 25 mg in 00 :00 dose, [facility] Medica l NaCl 0.9% 06/15/19 at Branc h (NS) 50 mL 1345, 50 piggyback mL NaCl 0.9% 2019- No 1000mL at 999 Uni vers (NS) bolus 06-15 mL/hr, ity of infusion 17:00: 20:03 1,000 mL, [place] 1,000 mL 00 :00 IV Medical Infusion, Branch ONCE, 1 dose, [place] 06/15/19 at 1200, LUISA proMETHazin Yes [id number] 25mg Take 1 U nivers e 25 mg 06-15 tablet by ity of tablet 00:00: mouth [place] 00 every 6 Medical (six) Branch hours as needed for Nausea and Vomiting (N/V). famotidine 2019- No [id number] 40mg Take 1 U nivers 40 mg 06-15 tablet by ity of tablet 00:00: 04:59 mouth [place] 00 :00 daily for Medical 14 days. Branch predniSONE Yes [id number] Take 1 U nivers 10 mg 4-26 tablet ity of tablet 00:00: daily. [place] 00 Medical Branch proMETHazin Yes [id number] 25mg Insert 1 Univers e 25 mg 4-26 Suppositor ity of suppository 00:00: y [place] 00 rectum Medical every 4 Branch (four) hours as needed for Nausea and Vomiting (N/V). ALPRAZolam 2017- Yes 2mg Take 2 mg Un thor (XANAX) 2 2-23 by mouth 2 ity of mg tablet 19:37: (two) [place] 38 times Medical daily. Branch dextroamphe 0 Yes 30mg Take 30 mg Univers tamine-amph [...] hours as needed for Pain (scale 4-6). pantoprazol Yes 20mg QD Take 20 mg [place] e 9-23 by mouth Health (PROTONIX) 23:40: daily. 20 mg 31 delayed release tablet acetaminoph Yes 1{tbl} Take 1 Un thor en-codeine 9-22 tablet by ity of (TYLENOL 00:00: mouth [place] #3) 300-30 00 every 6 Medica l [...] needed for Nausea and Vomiting (N/V). HYDROcodone 2012-11 Yes Periapical 1{tbl} Take 1 [place] -acetaminop 0-22 abscess tablet by Health hen (NORCO) 00:00: mouth 10-325 mg 00 every 6 tablet hours as needed for Pain. HYDROcodone 2012-11 Yes Caries 1{tbl} Take 1 [place] -acetaminop 0-21 tablet by [facility] hen (NORCO) 00:00: mouth 5-325 mg 00 every 6 tablet hours as needed for Pain. proMETHazin 2010-11 Yes [id number] 12.5mg Take 1 Tab Univers e 2-23 by mouth ity of (PHENERGAN) 00:00: every 6 [place] 12.5 mg 00 (six) Medical tablet hours as Branch needed for Nausea and Vomiting. Vital Signs Vital Name Observation Time Observation Value Comments Source Systolic blood 2020-10-30 92 mm[Hg] University of pressure 22:01:00 [facility] Branch Diastolic blood 2020-10-30 65 mm[Hg] University o f pressure 22:01:00 [facility] Branch Heart rate 2020-10-30 104 /min University of 22:01:00 [facility] Branch Body temperature 2020-10-30 36.83 [place] University of 22:01:00 [facility] Branch Respiratory rate 2020-10-30 18 /min University of 22:01:00 [facility] Branch Oxygen saturation 2020-10-30 96 /min University of in Arterial blood 22:01:00 [facility] by Pulse oximetry Branch Body weight 2020-10-24 61.2 kg University of 19:35:00 [facility] [place] [facility] BMI 2020-10-24 21.13 kg/m2 University of 19:35:00 [facility] [place] [facility] Systolic blood 2020-10-30 92 mm[Hg] University of pressure 22:01:00 [facility] [place] [facility] Diastolic blood 2020-10-30 65 mm[Hg] University o f pressure 22:01:00 [facility] [place] [facility] Heart rate 2020-10-30 104 /min University of 22:01:00 [facility] [place] [facility] Body temperature 2020-10-30 36.83 [place] University of 22:01:00 [facility] Branch Respiratory rate 2020-10-30 18 /min University of 22:01:00 [facility] Branch Oxygen saturation 2020-10-30 96 /min University of in Arterial blood 22:01:00 [facility] by Pulse oximetry Branch Body weight 2020-10-24 61.2 kg University of 19:35:00 [facility] [place] [facility] BMI 2020-10-24 21.13 kg/m2 University of 19:35:00 [facility] Branch Systolic blood 2020-10-19 92 mm[Hg] University of pressure 19:08:00 [place] [facility] Branch Diastolic blood 2020-10-19 63 mm[Hg] University o f pressure 19:08:00 [facility] Branch Heart rate 2020-10-19 98 /min University of 19:08:00 [facility] Branch Body temperature 2020-10-19 36.17 [place] University of 19:08:00 [facility] Branch Respiratory rate 2020-10-19 18 /min University of 19:08:00 [place] [facility] Oxygen saturation 2020-10-19 100 /min University of in Arterial blood 19:08:00 [facility] ryann by Pulse oximetry Branch Body height 2020-10-14 170.2 cm University of 12:21: [facility] [place] [facility] Body weight 2020-10-14 55.1 kg University of 12:21:00 [facility] [place] [facility] BMI 2020-10-14 19.03 kg/m2 University of 12:21:00 [facility] [place] [facility] Systolic blood 2020-10-19 92 mm[Hg] University of pressure 19:08:00 [facility] [place] [facility] Diastolic blood 2020-10-19 63 mm[Hg] University o f pressure 19:08:00 [facility] [place] [facility] Heart rate 2020-10-19 98 /min University of 19:08:00 [facility] [place] [facility] Body temperature 2020-10-19 36.17 Tay[place] University of 19:08:00 [facility] [place] [facility] Respiratory rate 2020-10-19 18 /min University of 19:08:00 [facility] [place] [facility] Oxygen saturation 2020-10-19 100 /min University of in Arterial blood 19:08:00 [facility] by Pulse oximetry Branch Body height 2020-10-14 170.2 cm University of 12:21:00 [facility] [place] [facility] Body weight 2020-10-14 55.1 kg University of 12:21:00 [facility] [place] [facility] BMI 2020-10-14 19.03 kg/m2 University of 12:21:00 [facility] [place] [facility] Respiratory rate 2020-10-02 20 /min University of 06:35:00 [facility] [place] [facility] Oxygen saturation 2020-10-02 97 /min University of in Arterial blood 06:35:00 [facility] by Pulse oximetry Branch Systolic blood 2020-10-02 122 mm[Hg] University of pressure 04:53:00 [facility] [place] [facility] Diastolic blood 2020-10-02 88 mm[Hg] University o f pressure 04:53:00 [facility] [place] [facility] Heart rate 2020-10-02 133 /min University of 04:53:00 [facility] [place] [facility] Body temperature 2020-10-02 37.28 Tayla University of 04:53:00 [facility] [place] [facility] Body height 2020-10-02 170 cm University of 04:53:00 [facility] [place] [facility] Body weight 2020-10-02 58.968 kg University of 04:53:00 [facility] [place] [facility] BMI 2020-10-02 20.40 kg/m2 University of 04:53:00 [facility] [place] [facility] Systolic blood 2020-09-27 98 mm[Hg] University of pressure 15:38:00 [facility] Branch Diastolic blood 2020-09-27 64 mm[Hg] University o f pressure 15:38:00 [facility] Branch Heart rate 2020-09-27 86 /min University of 15:38:00 [facility] Branch Body temperature 2020-09-27 37.06 Tayla University of 15:38:00 [facility] Branch Body height 2020-09-27 170.2 cm University of 15:38:00 [facility] [place] [facility] Body weight 2020-09-27 59.104 kg University of 15:38:00 [facility] Branch BMI 2020-09-27 20.41 kg/m2 University of 15:38:00 [facility] [place] [facility] Oxygen saturation 2020-09-27 100 /min University of in Arterial blood 15:38:00 [facility] ryann by Pulse oximetry Branch Systolic blood 2020-09-18 106 mm[Hg] University of pressure 21:45:00 [facility] [place] [facility] Diastolic blood 2020-09-18 68 mm[Hg] University o f pressure 21:45:00 [facility] [place] [facility] Heart rate 2020-09-18 101 /min University of 21:45:00 [facility] [place] [facility] Body temperature 2020-09-18 36.22 Tayla University of 21:45:00 [facility] [place] [facility] Respiratory rate 2020-09-18 18 /min University of 21:45:00 [facility] [place] [facility] Oxygen saturation 2020-09-18 98 /min University of in Arterial blood 21:45:00 [facility] by Pulse oximetry Branch Body weight 2020-09-18 61.236 kg With one University of 10:59:00 blanket and [place] [facility] sheet. Branch BMI 2020-09-18 21.14 kg/m2 University of 10:59:00 [facility] [place] [facility] Body height 2020-09-13 170.2 cm University of 20:47:00 [facility] [place] [facility] Systolic blood 2020-09-01 129 mm[Hg] University of pressure 11:00:00 [facility] Branch Diastolic blood 2020-09-01 86 mm[Hg] University o f pressure 11:00:00 [facility] [place] [facility] Heart rate 2020-09-01 102 /min University of 11:00:00 [facility] [place] [facility] Body temperature 2020-09-01 37.67 Tayla University of 10:00:00 [facility] [place] [facility] Respiratory rate 2020-09-01 18 /min University of 10:00:00 [facility] [place] [facility] Oxygen saturation 2020-09-01 100 /min University of in Arterial blood 10:00:00 [facility] by Pulse oximetry Branch Body weight 2020-09-01 58.968 kg University of 06:45:00 [facility] [place] [facility] BMI 2020-09-01 20.36 kg/m2 University of 06:45:00 [facility] [place] [facility] Systolic blood 2020-08-24 124 mm[Hg] University of pressure 00:00:00 [facility] [place] [facility] Diastolic blood 2020-08-24 90 mm[Hg] University o f pressure 00:00:00 [facility] [place] [facility] Heart rate 2020-08-24 89 /min University of 00:00:00 [place] [facility] Respiratory rate 2020-08-24 20 /min University of 00:00:00 [facility] [place] [facility] Oxygen saturation 2020-08-24 100 /min [facility] in Arterial blood 00:00:00 [facility] by Pulse oximetry Branch Body temperature 2020-08-23 36.61 Tayla University of 22:27:00 [facility] [place] [facility] Body weight 2020-08-23 58.968 kg University of 22:27:00 [facility] [place] [facility] BMI 2020-08-23 20.36 kg/m2 University of 22:27:00 [facility] [place] [facility] Systolic blood 2020-08-20 117 mm[Hg] University of pressure 16:22:00 [facility] [place] [facility] Diastolic blood 2020-08-20 86 mm[Hg] University o f pressure 16:22:00 [facility] [place] [facility] Heart rate 2020-08-20 129 /min University of 16:22:00 [facility] [place] [facility] Body temperature 2020-08-20 36.89 Tayla University of 16:21:00 [facility] [place] [facility] Respiratory rate 2020-08-20 16 /min University of 16:21:00 [facility] [place] [facility] Body height 2020-08-20 170.2 cm University of 16:21:00 [facility] [place] [facility] Body weight 2020-08-20 57.607 kg University of 16:21:00 [facility] [place] [facility] BMI 2020-08-20 19.89 kg/m2 University of 16:21:00 [facility] [place] [facility] Systolic blood 2020-08-18 115 mm[Hg] University of pressure 04:00:00 [facility] [place] [facility] Diastolic blood 2020-08-18 79 mm[Hg] University o f pressure 04:00:00 [facility] [place] [facility] Heart rate 2020-08-18 104 /min University of 04:00:00 [facility] [place] [facility] Respiratory rate 2020-08-18 17 /min University of 04:00:00 [facility] [place] [facility] Oxygen saturation 2020-08-18 100 /min University of in Arterial blood 04:00:00 [facility] ryann by Pulse oximetry Branch Body temperature 2020-08-18 37.06 Tayla University of 00:44:00 [facility] [place] [facility] Body weight 2020-08-18 56.7 kg University of 00:44:00 [facility] [place] [facility] BMI 2020-08-18 19.58 kg/m2 University of 00:44:00 [facility] [place] [facility] Systolic blood 2020-08-09 153 mm[Hg] University of pressure 15:40:00 [facility] [place] [facility] Diastolic blood 2020-08-09 83 mm[Hg] University o f pressure 15:40:00 [facility] [place] [facility] Heart rate 2020-08-09 143 /min University of 15:40:00 [facility] [place] [facility] Body temperature 2020-08-09 36.83 Tayla University of 15:40:00 [facility] [place] [facility] Body height 2020-08-09 170.2 cm University of 15:40:00 [facility] [facility] Body weight 2020-08-09 56.473 kg University of 15:40:00 [facility] BMI 2020-08-09 19.50 kg/m2 University of 15:40:00 [facility] Oxygen saturation 2020-08-09 100 /min [employer] of in Arterial blood 15:40:00 [facility] ryann by Pulse oximetry Branch Systolic blood 2020-08-01 126 mm[Hg] University of pressure 13:03:00 [facility] Diastolic blood 2020-08-01 76 mm[Hg] University o f pressure 13:03:00 [facility] Heart rate 2020-08-01 119 /min University of 13:03:00 [facility] Body temperature 2020-08-01 36.67 Tayla University of 13:03:00 [facility] Respiratory rate 2020-08-01 16 /min University of 13:03:00 [facility] Oxygen saturation 2020-08-01 99 /min University of in Arterial blood 13:03:00 [facility] ryann by Pulse oximetry Branch Body weight 2020-07-23 70.308 kg University of 16:57:00 [facility] BMI 2020-07-23 24.28 kg/m2 University of 16:57:00 [facility] Systolic blood 2019-06-15 110 mm[Hg] University of pressure 18:22:00 [facility] Diastolic blood 2019-06-15 57 mm[Hg] University o f pressure 18:22:00 [facility] Heart rate 2019-06-15 91 /min [facility] 18:22:00 [facility] Respiratory rate 2019-06-15 18 /min [facility] 18:22:00 [facility] Oxygen saturation 2019-06-15 98 /min [facility] in Arterial blood 18:22:00 [facility] by Pulse oximetry Spray Body temperature 2019-06-15 38 Talya [facility] 16:54:00 [facility] Body weight 2019-06-15 83.915 kg [facility] 16:54:00 [facility] BMI 2019-06-15 28.98 kg/m2 [facility] 16:54:00 [facility] Procedures Procedure Date / Time Performing Clinician Source Performed AUTHORIZATION FOR RELEASE 2021-06-18 05:01:00 Doctor Unassigned, [facility] Name [facility] EXTERNAL PROVIDER RECORDS 2020-11-20 06:01:00 Doctor Unassigned, [facility] Name [facility] CBC WITH DIFF 2020-10-29 13:10:00 Leticia Hinson [facility] MAGNESIUM 2020-10-29 09:36:00 [facility] BASIC METABOLIC PANEL 2020-10-29 09:36:00 [facility] (NA, K, CL, CO2, GLUCOSE, [facility] BUN, CREATININE, CA) PHOSPHORUS 2020-10-28 10:00:00 [facility] MAGNESIUM 2020-10-28 10:00:00 [facility] BASIC METABOLIC PANEL 2020-10-28 10:00:00 [facility] (NA, K, CL, CO2, GLUCOSE, [facility] BUN, CREATININE, CA) CBC WITH DIFF 2020-10-28 09:59:00 [facility] MAGNESIUM 2020-10-27 07:05:00 [facility] BASIC METABOLIC PANEL 2020-10-27 07:05:00 [facility] (NA, K, CL, CO2, GLUCOSE, Medica l Branch BUN, CREATININE, CA) CBC WITH DIFF 2020-10-27 07:05:00 [facility] URINALYSIS 2020-10-27 07:05:00 [facility] 2020-10-27 07:05:00 [facility] CBC WITH DIFF 2020-10-26 11:43:00 Ehsan [facility] PHOSPHORUS 2020-10-26 03:41:00 Ehsan [facility] MAGNESIUM 2020-10-26 03:41:00 Ehsan [facility] BASIC METABOLIC PANEL 2020-10-26 03:41:00 Ehsan [facility] (NA, K, CL, CO2, GLUCOSE, Medica l Branch BUN, CREATININE, CA) CBC WITH DIFF 2020-10-26 03:41:00 Ehsan [facility] COVID-19 (ID NOW RAPID 2020-10-25 01:26:00 Rena Moser [facility] TESTING) Medical Branch LAB ONLY COVID 2020-10-25 01:26:00 Ehsan [facility] INTERPRETATION [facility] BASIC METABOLIC PANEL 2020-10-24 22:27:00 Leticia Hinson [facility] (NA, K, CL, CO2, GLUCOSE, Medica l Branch BUN, CREATININE, CA) CBC WITH DIFF 2020-10-24 22:27:00 Leticia Hinson [facility] CT ABDOMEN PELVIS W 2020-10-24 21:20:40 Rena Moser [facility] CONTRAST [facility] BASIC METABOLIC PANEL 2020-10-17 23:11:00 Kalee [facility] (NA, K, CL, CO2, GLUCOSE, Medica l Branch BUN, CREATININE, CA) CLOSTRIDIUM DIFFICILE 2020-10-17 17:24:00 Rena Moser [facility] TOXIN [facility] MRSA / MSSA SCREEN BY 2020-10-15 01:09:00 Mandeep Garnica [facility] PHILL BERMUDEZ [facility] SURGICAL PATHOLOGY EXAM 2020-10-14 15:01:00 Kalee [facility] EXPLORATORY LAPAROTOMY 2020-10-14 13:10:00 Kalee [facility] ILEOSTOMY TAKEDOWN 2020-10-14 13:10:00 Kalee [facility] ASSIGNMENT OF BENEFITS 2020-10-14 11:29:56 Doctor Unassigned, [facility] [place] [facility] URINALYSIS 2020-10-02 05:22:00 Ebony Chakraborty [facility] LIPASE 2020-10-02 05:19:00 Ebony Chakraborty [facility] HEPATIC FUNCTION PANEL 2020-10-02 05:19:00 Ebony Chakraborty [facility] ([id number]) (ALB,T.PRO,BILI Medical Branch T,BU/BC,ALT,AST,ALK PHOS) BASIC METABOLIC PANEL 2020-10-02 05:19:00 Ebony Chakraborty [facility] (NA, K, CL, CO2, GLUCOSE, Medica l Branch BUN, CREATININE, CA) CBC WITH DIFF 2020-10-02 05:19:00 Ebony Chakraborty [facility] CONSENT/REFUSAL FOR 2020-10-02 04:45:02 Doctor Unassigned, [facility] DIAGNOSIS AND TREATMENT [facility] [facility] Spray COMP. METABOLIC PANEL 2020-09-16 12:00:00 [id number] COMP. METABOLIC PANEL 2020-09-15 09:58:00 [facility] ([id number]) Medical Branch CREATINE KINASE 2020-09-14 16:03:00 [facility] HEPATIC FUNCTION PANEL 2020-09-14 16:03:00 [facility] ([id number]) (ALB,T.PRO,BILI Medical Branch T,BU/BC,ALT,AST,ALK PHOS) BASIC METABOLIC PANEL 2020-09-14 16:03:00 [facility] (NA, K, CL, CO2, GLUCOSE, Medica l Branch BUN, CREATININE, CA) HEPATITIS B SURFACE 2020-09-14 10:15:00 Yulissa [facility] ANTIBODY Medical Branch HEPATITIS B SURFACE 2020-09-14 10:15:00 Yulissa [facility] ANTIGEN [facility] Branch HCV BY PCR 2020-09-14 10:15:00 [facility] HB ECG ROUTINE & RHYTHM 2020-09-13 18:17:57 Delta Hellen [facility] STRIP Medical Branch MAGNESIUM 2020-09-13 18:16:00 Barbara Turner [facility] TROPONIN I 2020-09-13 18:16:00 [facility] 2020-09-13 17:15:00 [facility] COMP. METABOLIC PANEL 2020-09-13 17:15:00 Delta Hellen [facility] ([id number]) Medical Branch CBC WITH DIFF 2020-09-13 17:15:00 Delta Hellen [facility] XR ABDOMEN 2 VW 2020-09-13 16:44:14 [facility] EMERGENCY DEPARTMENT 2020-09-13 05:01:00 Doctor Unassigned, [facility] DOCUMENTS [facility] CT ABDOMEN PELVIS W 2020-09-01 08:02:47 Shayla Munoz [facility] Branch LIPASE 2020-09-01 07:10:00 Shayla Munoz [facility] COMP. METABOLIC PANEL 2020-09-01 07:10:00 Shayla Munoz [facility] ([id number]) Medical Branch CBC WITH DIFF 2020-09-01 07:10:00 Shayla Munoz [facility] CT ABDOMEN PELVIS W 2020-08-24 01:30:05 Matthias Silvestre [facility] CONTRAST [facility] Branch LIPASE 2020-08-23 23:52:00 Matthias Silvestre [facility] CBC WITH DIFF 2020-08-23 23:52:00 Matthias Silvestre [facility] CONSENT/REFUSAL FOR 2020-08-23 22:12:59 Doctor Unassigned, [facility] DIAGNOSIS AND TREATMENT [facility] CT ABDOMEN PELVIS W 2020-08-18 02:24:35 Shayla Munoz [facility] CONTRAST [facility] Branch LIPASE 2020-08-18 01:23:00 Shayla Munoz [facility] COMP. METABOLIC PANEL 2020-08-18 01:23:00 Shayla Munoz [facility] ([id number]) Medical Branch CBC WITH DIFF 2020-08-18 01:23:00 Sahyla Munoz [facility] Medical Branch COVID-19 (ID NOW RAPID 2020-08-18 01:23:00 Shayla Munoz [facility] TESTING) Medical Branch NOTICE OF PRIVACY 2020-08-18 00:35:45 Doctor Unassigned, [facility] PRACTICES [facility] CONSENT/REFUSAL FOR 2020-08-18 00:31:36 Doctor Unassigned, [facility] DIAGNOSIS AND TREATMENT [facility] AUTHORIZATION TO RELEASE 2020-08-09 05:01:00 Doctor Unamaxigned, [facility] PHI TO [facility] [facility] PHOSPHORUS 2020-08-01 08:47:00 [facility] 2020-08-01 08:47:00 [facility] BASIC METABOLIC PANEL 2020-08-01 08:47:00 [facility] ([facility], K, CL, CO2, GLUCOSE, Medica l Branch BUN, CREATININE, CA) CBC WITH DIFF 2020-08-01 08:47:00 [facility] PHOSPHORUS 2020-07-31 10:06:00 [facility] MAGNESIUM 2020-07-31 10:06:00 [facility] BASIC METABOLIC PANEL 2020-07-31 10:06:00 [facility] (NA, K, CL, CO2, GLUCOSE, Medica l Branch BUN, CREATININE, CA) CBC WITH DIFF 2020-07-31 10:06:00 [facility] PHOSPHORUS 2020-07-30 09:29:00 [facility] MAGNESIUM 2020-07-30 09:29:00 [facility] BASIC METABOLIC PANEL 2020-07-30 09:29:00 [facility] (NA, K, CL, CO2, GLUCOSE, Medica l Branch BUN, CREATININE, CA) BASIC METABOLIC PANEL 2020-07-29 10:11:00 [facility] (NA, K, CL, CO2, GLUCOSE, Medica l Branch BUN, CREATININE, CA) CBC WITHOUT DIFF 2020-07-29 10:11:[address] [facility] PROTHROMBIN TIME / INR 2020-07-29 10:11:00 Mark [facility] ACTIVATED PARTIAL 2020-07-29 10:11:00 [facility] THRMPLAS TIRSO [facility] FIBRINOGEN 2020-07-29 10:11:00 [facility]. BLUE 2020-07-29 10:11:00 Kalee [facility] EXTRA TUBE LT. GREEN 2020-07-29 10:11:00 Kalee [facility] XR KUB 2020-07-29 09:55:[address] [facility] CBC WITHOUT DIFF 2020-07-28 10:15:00 Devan [facility] BASIC METABOLIC PANEL 2020-07-28 09:47:00 Farooq Hartman [facility] (NA, K, CL, CO2, GLUCOSE, Jose Angel [facility] BUN, CREATININE, CA) BASIC METABOLIC PANEL 2020-07-27 10:39:00 Farooq Hartman [facility] (NA, K, CL, CO2, GLUCOSE, [facility] BUN, CREATININE, CA) CBC WITHOUT DIFF 2020-07-27 10:39:00 Devan [facility] BASIC METABOLIC PANEL 2020-07-26 07:53:00 Farooq Hartman [facility] (NA, K, CL, CO2, GLUCOSE, [facility] BUN, CREATININE, CA) CBC WITHOUT DIFF 2020-07-26 07:53:00 Devan [facility] MAGNESIUM 2020-07-26 00:13:00 Devan [facility] BASIC METABOLIC PANEL 2020-07-26 00:13:00 Farooq Hartman [facility] (NA, K, CL, CO2, GLUCOSE, [facility] BUN, CREATININE, CA) CBC WITHOUT DIFF 2020-07-26 00:13:00 Devan [facility] PROTHROMBIN TIME / INR 2020-07-26 00:13:[address] [facility] ACTIVATED PARTIAL 2020-07-26 00:13:00 Farooq Hartman [facility] THRMPLAS TIRSO [facility] SURGICAL PATHOLOGY EXAM 2020-07-25 22:08:00 Kalee [facility] ILEOSTOMY 2020-07-25 20:18:00 Kalee [facility] ILEOCECECTOMY 2020-07-25 20:18:00 Kalee [facility] BASIC METABOLIC PANEL 2020-07-25 11:35:00 Parag [facility] (NA, K, CL, CO2, GLUCOSE, Medica l Branch BUN, CREATININE, CA) CBC WITHOUT DIFF 2020-07-25 11:35:00 Akshat Tuttle [facility] ABORH CONFIRMATION 2020-07-25 04:37:00 Mercedez Negro [facility] HB ABO GROUPING 2020-07-25 04:12:00 Oliver Nunez [facility] BASIC METABOLIC PANEL 2020-07-24 07:34:00 Dc Jay [facility] (NA, K, CL, CO2, GLUCOSE, Medica l Branch BUN, CREATININE, CA) CBC WITHOUT DIFF 2020-07-24 07:34:00 Dc Jay [facility] XR ABDOMEN 1 VW 2020-07-24 06:56:00 Dc Jay [facility] EKG-12 LEAD 2020-07-24 06:39:07 Farooq Zepeda [facility] COVID-19 (ID NOW RAPID 2020-07-24 00:26:00 Mercedez Negro [facility] L[facility] ACID WHOLE BLOOD 2020-07-24 00:24:00 Mercedez Negro [facility] BLOOD CULTURE SCREEN 2020-07-23 21:41:00 Mercedez Negro [facility] LACTIC ACID WHOLE BLOOD 2020-07-23 21:41:00 [facility] 2020-07-23 20:56:34 Mercedez Negro [facility] CONTRAST Medical Branch LIPASE 2020-07-23 19:31:00 Mercedez Negro [facility] HEPATIC FUNCTION PANEL 2020-07-23 19:31:00 Mercedez Negro [facility] ([id number]) (ALB,T.PRO,BILI Medical Branch T,BU/BC,ALT,AST,ALK PHOS) BASIC METABOLIC PANEL 2020-07-23 19:31:00 Mercedez Negro [facility] (NA, K, CL, CO2, GLUCOSE, Medica l Branch BUN, CREATININE, CA) CBC WITH DIFF 2020-07-23 19:31:00 Mercedez Negro [facility] URINALYSIS 2020-07-23 19:19:00 Mercedez Negro [facility] NOTICE OF PRIVACY 2020-07-23 16:48:03 Doctor Unassigned, [facility] PRACTICES [facility] CONSENT/REFUSAL FOR 2020-07-23 16:47:54 Doctor Unassigned, [facility] DIAGNOSIS AND TREATMENT [facility] AGREEMENTS AUTHORIZATIONS 2020-07-23 05:01:00 Doctor Unassigned, [facility] AND IRREVOCABLE [facility] ASSIGNMENTS (FORM 2001) CT ABDOMEN PELVIS W 2019-06-15 18:45:34 Mary Jo Dukes [facility] LACTIC ACID WHOLE BLOOD 2019-06-15 17:46:00 Mary Jo Dukes [facility] LIPASE 2019-06-15 17:30:00 Mary Jo Dukes [facility] HEPATIC FUNCTION PANEL 2019-06-15 17:30:00 Mary Jo Dukes [facility] ([id number]) (ALB,T.PRO,BILI Medical Branch T,BU/BC,ALT,AST,ALK PHOS) BASIC METABOLIC PANEL 2019-06-15 17:30:00 Mary Jo Dukes [facility] (NA, K, CL, CO2, GLUCOSE, Medica l Branch BUN, CREATININE, CA) CBC WITH DIFFERENTIAL 2019-06-15 17:30:00 Mary Jo Dukes [facility] POCT TEST 2019-06-15 17:24:00 Mary Jo Dukes [facility] URINALYSIS 2019-06-15 17:22:00 Mary Jo Dukes [facility] NOTICE OF PRIVACY 2019-06-15 16:39:09 Doctor Unassmaria del carmen, Tevin [facility] PRACTICES [place] [facility] CONSENT/REFUSAL FOR 2019-06-15 16:38:53 Doctor Unassigned, [facility] DIAGNOSIS AND TREATMENT [facility] Plan of Care Planned Activity Planned Date Details Comments Source Future Scheduled Test 2022-08-15 00:00:00 IMM Influenza [facility] Seasonal (>/= 19 yrs) [code = IMM Influenza Seasonal (>/= 19 yrs)] Future Scheduled Test 2014 00:00:00 Breast Cancer Scrn [facility] (Yearly) [code = Breast Cancer Scrn (Yearly)] Future Scheduled Test 2004 00:00:00 Screening for [facility] malignant neoplasm of cervix (procedure) [code = 936964664] Future Scheduled Test 2004 00:00:00 Screening for [facility] malignant neoplasm of cervix (procedure) [code = 027566466] Future Scheduled Test 1975-04-08 00:00:00 COVID-19 Vaccine (#1) [facility] [code = COVID-19 Vaccine (#1)] Future Scheduled Test 1974 00:00:00 Fluoride Varnish [facility] [code = Fluoride Varnish] Encounters Start End Encounter Admission Attending Care Care Encounter Source Date/Time Date/Time Type Type Clinicians Facility Department ID 2021-09-13 Emergency X KALEE [facility] JASIEL [id number] Univers 10:26:40 ity of [facility] 2021-09-13 Emergency [facility] [id number] Univers 06:14:00 ity [facility] 2021-09-13 Outpatient KALEE [facility] [id number] Univers 05:23:22 ity of [facility] 2021-09-13 Emergency [facility] [id number] Univers 04:35:58 ity [facility] 2021-09-13 Emergency [facility] [id number] Univers 02:03:39 ity [facility] 2021-09-13 Emergency [facility] [id number] Univers 00:06:17 ity of [facility] 2021-09-12 Emergency [facility] [id number] Univers 23:33:58 ity of [facility] 2021-09-12 Emergency [facility] [id number] Univers 22:11:08 ity of [facility] 2021-09-12 Emergency [facility] [id number] Univers 20:54:06 ity of [facility] 2021-03-20 Inpatient HCAPM JOSE ROBERTO [id number] [facility] 10:26:00 [id number] [facility] 2021-01-10 Inpatient HCAWU JOSE ROBERTO [id number] [facility] 20:22:00 [id number] [facility] 2021-06-18 2021-06-18 Orders Doctor LETICIA [id number] Univers 00:00:00 00:00:00 Only Unassigned, JAYY [id number] ity of [place] [facility] [id number] Juan as [phone] [facility] 009 Branch 2021-05-31 2021-05-31 Emergency E MOBILE, MHNW MHNW 7504 MHNW 11:46:00 20:16:00 SPANGLEREDMUNDO 2021-03-20 2021-03-20 Outpatient Rich, DAVIECL LABO [id number] [facility] 18:43:00 18:43:00 Safi [id number] [facility] 2021-01-03 2021-01-03 Patient Anne Fuentes 1.2.840.114 [id number] Univers 00:00:00 00:00:00 Outreach Mercedez Narayanan [id number] [place] [id number] [facility] 403 Branch 2020-11-26 2020-11-26 [facility] [id number] Univers 09:00:00 09:00:00 ORPHEUS [id number] ity [facility] 2020-11-26 2020-11-26 [facility] [id number] Univers 09:00:00 09:00:00 ORPHEUS ity [facility] 2020-11-26 2020-11-26 Telephone Darren Chun [facility] 1.2.840.114 [id number] Univers 00:00:00 00:00:00 Health [id number] it [place] - [phone] Med ical [facility] 408 Branch 2020-11-22 2020-11-22 Outpatient R [facility] [id number] Univers 15:30:00 15:30:00 ORPHEUS [id number] ity [facility] 2020-11-22 2020-11-22 Outpatient R [facility] [id number] Univers 15:30:00 15:30:00 ORPHEUS ity [facility] 2020-11-20 2020-11-20 Orders Doctor LETICIA 1.2.840.114 [id number] Univers 00:00:00 00:00:00 Only Unassigned, JAYY [id number] ity of [place] [facility] 4.2.7.2.686 Juan as [phone] [facility] 009 Branch 2020-11-19 2020-11-19 Outpatient R [facility] [id number] Univers 11:15:00 11:15:00 ORPHEUS [id number] ity [facility] 2020-11-19 2020-11-19 Outpatient R [facility] [id number] Univers 11:15:00 11:15:00 ORPHEUS ity [facility] 2020-11-12 2020-11-12 Patient Deepika Ramirez 1.2.840.114 [id number] Univers 00:00:00 00:00:00 Outreach E Narayanan [id number] i [place] [phone] [facility] 403 Branch 2020-11-11 2020-11-11 Telephone [facility] 1.2.840.114 [id number] Univers 00:00:00 00:00:00 [facility] [id number] [place] - [id number] Med ical [facility] 188 Branch 2020-11-05 2020-11-05 Telephone Darren Chun [facility] 1.2.840.114 [id number] Univers 00:00:00 00:00:00 SPECIALTY [id number] [place] AT [id number] Dc dical [facility] 188 Branch [facility] 2020-11-01 2020-11-01 Patient Deepika Ramirez Anne 1.2.840.114 [id number] Univers 00:00:00 00:00:00 Outreach E Narayanan [id number] i [place] [phone] [facility] 403 Branch 2020-10-31 2020-10-31 Transition Anne Damon 1.2.840.114 [id number] Univers 00:00:00 00:00:00 of Care Lynda Narayanan [id number] [place] [id number] [facility] 403 Branch 2020-10-31 2020-10-31 Transition Anne Damon 1.2.840.114 [id number] 00:00:00 00:00:00 of Care Lynda Narayanan [id number] [place] 4.[id number] [facility] 2020-10-24 2020-10-30 [facility] 1.2.840.114 [id number] Univers 13:38:00 19:38:00 Encounter [place] [id number] ity of Hospital 4.2.7.2.686 Juan as [phone] [facility] 099 Branch 2020-10-24 2020-10-30 [facility] Blaire 1.2.840.114 [id number] 13:38:00 19:38:00 Encounter [place] [id number] Hospital 4.2.7.2.686 [id number] 2020-10-21 2020-10-21 Transition Anne Damon 1.2.840.114 [id number] Univers 00:00:00 00:00:00 of Care Lynda Narayanan [id number] [place] [phone] [facility] 403 Spray 2020-10-21 2020-10-21 Transition Anne Damon 1.2.840.114 [id number] 00:00:00 00:00:00 of Care Lynda Narayanan [id number] [place] 4.2.7.[id number] [facility] 2020-10-14 2020-10-19 [facility] Blaire 1.2.840.114 [id number] [facility] 05:48:00 15:50:00 Encounter [place] [id number] ity of Hospital 4.2.7.2.686 Juan as [phone] [facility] 099 Spray 2020-10-14 2020-10-19 [facility] Blaire 1.2.840.114 [id number] 05:48:00 15:50:00 Encounter [place] [id number] Hospital 4.2.7.2.686 [id number] [facility] 2020-10-16 2020-10-16 Patient Deepika Ramirez Anne 1.2.840.114 [id number] [facility] 00:00:00 00:00:00 Outreach E Narayanan [id number] i [place] [id number] [address] 2020-10-16 2020-10-16 Patient Deepika Ramirez Anne 1.2.840.114 [id number] 00:00:00 00:00:00 Outreach E Narayanan 350.1.13.10 [place] 4.[id number] [facility] 2020-10-14 2020-10-14 Orders Doctor KELLY 1.2.840.[id number] [place] [address] 00:00:00 00:00:00 Only Unassigned, JAYY 350.1.13.10 ity of [place] [facility] 4.2.7.2.686 Juan as [phone] [facility] 009 Branch 2020-10-14 2020-10-14 Orders Doctor LETICIA 1.2.840.114 [id number] 00:00:00 00:00:00 Only Unassigned, JAYY 350.1.13.10 [facility] 4.2.7.2.686 [id number] 009 2020 2020 Laboratory Only, [facility] 1.2.840.114 [id number] 14:56:46 15:11:46 Only Test Michela 350.1.13.10 [place] 4.2.7.2.686 [place] [id number] 2020 2020 Laboratory Only, [facility] Test [facility] 1.2.840. 114 [id number] [facility] 14:56:46 15:11:46 Only Darren Chun 350.1.13.10 it[place] of [place] [phone] [address] 2020 2020 Outpatient [facility] [id number] -20 Univers 14:45:00 14:45:00 [id number] ity [facility] 2020 2020 Outpatient R [facility] [id number] Univers 14:45:00 14:45:00 ity [facility] 2020-10-07 2020-10-07 Patient Deepika Ramirez 1.2.840.114 [id number] 00:00:00 00:00:00 Outreach E Narayanan 350.1.13.10 [place] 4.2.7.2.686 [id number] 403 2020-10-07 2020-10-07 Patient Deepika Ramirez 1.2.840.114 [id number] Univers 00:00:00 00:00:00 Outreach E Narayanan 350.1.13.10 i ty of [place] [phone] [place] [address] Branch 2020-10-01 2020-10-02 Emergency [facility] 1.2.840.114 79 [id number] Univers 23:00:00 01:14:00 Ebony Abernathy 350.1.13.10 [place] [phone] [facility] 084 Branch 2020-10-01 2020-10-01 Transition Anne Damon 1.2.840.114 [id number] Univers 00:00:00 00:00:00 of Care Lynda Narayanan 350.1.13.10 it[place] of [place] [phone] [facility] [address] 2020-09-30 2020-09-30 Telephone [facility] 1.2.840.114 [id number] Univers 00:00:00 00:00:00 Health 350.1.13.10 it y of [place] 4.2.7.2.686 [facility] [id number] [address] 2020-09-27 2020-09-27 Office [facility] 1.2.840.114 [id number] Univers 09:20:41 09:35:41 Visit Health 350.1.13.10 it y of Cancer 4.2.7.2.686 [facility] [phone] [address] 2020-09-27 2020-09-27 Outpatient [facility] 535 386P-20 Univers 09:30:00 09:30:00 [id number] ity of [facility] 2020-09-27 2020-09-27 Outpatient R [facility] 462 [id number] Univers 09:30:00 09:30:00 ity of [facility] 2020-09-24 2020-09-24 Telephone [facility] 1.2.840.114 [id number] Univers 00:00:00 00:00:00 Health 350.1.13.10 it y of Cancer 4.2.7.2.686 [facility] [phone] [address] 2020-09-19 2020-09-19 Transition Anne Damon 1.2.840.114 [id number] [id number] Univers 00:00:00 00:00:00 of Care Lynda Narayanan 350.1.13.10 ity of [place] 4.2.7.2.686 [facility] [id number] [address] 2020-09-19 2020-09-19 Patient Deepika Ramirez 1.2.840.114 [id number] Univers 00:00:00 00:00:00 Outreach E Narayanan 350.1.13.10 [place] [phone] [address] 2020-09-13 2020-09-18 [facility] Hellen Sorenson [facility] 1.2.840.1 14 [id number] Univers 10:29:00 17:07:00 Encounter Roby Jean 350.1.13.10 it[place] of [place] [phone] [facility] 081 Spray 2020-09-17 2020-09-17 Patient Deepika Ramirezmamie 1.2.840.114 [id number] Univers 00:00:00 00:00:00 Outreach E Narayanan 350.1.13.10 [place] [id number] [address] 2020-09-16 2020-09-16 Patient Deepika Ramirezmamie 1.2.840.114 [id number] Univers 00:00:00 00:00:00 Outreach E Narayanan 350.1.13.10 [place] [id number] [address] 2020-09-16 2020-09-16 Patient Sabi Fuentesmamie 1.2.840.114 [id number] Univers 00:00:00 00:00:00 Outreach Mercedez Barlow Narayanan 350.1.13.10 [place] [id number] [address] 2020-09-13 2020-09-13 Patient Deepika Ramirez Anne 1.2.840.114 79 [id number] Univers 00:00:00 00:00:00 Outreach E Narayanan 350.1.13.10 [place] [id number] [address] 2020-09-12 2020-09-12 Transition Anne Damon 1.2.840.114 [id number] Univers 00:00:00 00:00:00 of Care Lynda Narayanan 350.1.13.10 [place] [id number] [address] 2020-09-12 2020-09-12 Patient Deepika Ramirez 1.2.840.114 79 [id number] Univers 00:00:00 00:00:00 Outreach E Narayanan 350.1.13.10 [place] [id number] [address] 2020-09-12 2020-09-12 Patient Deepika Ramirez 1.2.840.114 79 [id number] Univers 00:00:00 00:00:00 Outreach E Narayanan 350.1.13.10 i [place] [id number] [address] 2020-09-12 2020-09-12 Patient Anne Fuentes 1.2.840.114 [id number] Univers 00:00:00 00:00:00 Outreach Mercedez Foleyy 350.1.13.10 [place] [id number] [address] 2020-09-12 2020-09-12 Telephone Alejandro [facility] 1.2.840.114 [id number] Univers 00:00:00 00:00:00 Mariana SPECIALTY 350.1.13.10 it[place] [phone] Dc maximus LARA 2 [facility] 2020-09-06 2020-09-06 Outpatient R [facility] 535 386P-20 Univers 11:00:00 11:00:00 [id number] ity of [facility] 2020-09-06 2020-09-06 Outpatient R KALEE [facility] 000 [id number] Univers 11:00:00 11:00:00 ity of [facility] 2020-09-03 2020-09-03 Outpatient R [facility] [id number] -20 Univers 11:00:00 11:00:00 ity of [facility] 2020-09-03 2020-09-03 Outpatient R [facility] [id number] Univers 11:00:00 11:00:00 ity of [facility] 2020-09-01 2020-09-01 [facility] 1.2.818.151 [id number] Univers 01:42:00 07:20:00 Shayla Abernathy 350.1.13.10 ity of [place] 4.2.7.2.686 [facility] [id number] [facility] 084 Spray 2020-08-29 2020-08-29 Telephone [facility] 1.2.840.114 [id number] Univers 00:00:00 00:00:00 Ordanie Alonso Health 350.1.13.10 ity of Cancer 4.2.7.2.686 [facility] - [phone] Med ical MDA [address] 2020-08-28 2020-08-28 Telephone Darren Chun [facility] 1.2.840.114 [id number] Univers 00:00:00 00:00:00 Health 350.1.13.10 it y of Cancer 4.2.7.2.686 [facility] - [phone] Med ical [facility] 408 Spray 2020-08-23 2020-08-[address] [facility] 1.2.061.374 [id number] Univers 17:35:00 22:19:00 Matthias Abernathy 350.1.13.10 i ty of [place] 4.2.7.2.686 [facility] 394.6492085 [facility] 084 Spray 2020-08-20 2020-08-20 Deepika Candelario [facility] 1.2.840.114 [id number] Univers 11:14:50 12:08:13 Visit Person, Daquan Kristina HEALTH 350.1.13.10 ity of CLINICS 4.2.7.2.686 [facility] [phone] [facility] 188 [address] 2020-08-20 2020-08-20 Outpatient R [facility] [id number] -20 Univers 11:00:00 11:00:00 ity of [facility] 2020-08-20 2020-08-20 Outpatient R [facility] [id number] Univers 11:00:00 11:00:00 ity of [facility] 2020-08-20 2020-08-20 Telephone Kalee [facility] 1.2.840.114 [id number] Univers 00:00:00 00:00:00 Health 350.1.13.10 it y of Cancer 4.2.7.2.686 [facility] - [phone] Med ical MDA [address] 2020-08-17 2020-08-18 Emergency [facility] 1.2.723.414 [id number] 1330 Univers 19:34:00 00:56:00 Shayla S [place] 350.1.13.10 ity of [place] 4.2.7.2.686 [facility] 644.7544123 [facility] 084 Spray 2020-08-09 2020-08-09 [facility] 1.2.840.114 [id number] Univers 10:32:05 10:47:05 Visit Health 350.1.13.10 it y of Cancer 4.2.7.2.686 [facility] - [phone] Med ical MDA [address] [place] [address] 2020-08-09 2020-08-09 Outpatient R KALEE [facility] 074 [id number] Univers 10:45:00 10:45:00 ity of [facility] 2020-08-09 2020-08-09 Orders Doctor LETICIA 1.2.840.114 [id number] Univers 00:00:00 00:00:00 Only Unassigned, JAYY 350.1.13.10 ity of [place] [facility] 4.2.7.2.686 [facility] [id number] [facility] 009 Branch 2020-08-05 2020-08-05 [facility] 1.2.840.114 [id number] Univers 00:00:00 00:00:00 Health 350.1.13.10 it y of Cancer 4.2.7.2.686 [facility] - [phone] Med ical MDA [address] 2020-08-02 2020-08-02 Transition Anne Ramirez 1.2.840.114 [id number] Univers 00:00:00 00:00:00 of Care Destinee Narayanan 350.1.13.10 i ty [place] [id number] [facility] 403 [address] 2020-07-23 2020-08-01 Hospital Mercedez Negro 1.2.840 .114 [id number] Univers 11:58:00 17:47:00 Encounter Candi Munozsai Martínez Acuna 350.1.13.10 ity of [place] Zepeda [facility] 4.2.7.2.686 [facility] [id number] Medical 1 Branch 2020-07-23 2020-07-23 Emergency [facility] [id number] Univers 11:58:00 11:58:00 MERCEDEZ scott [facility] 2020-07-23 2020-07-23 Orders Doctor KELLY 1.2.840.114 [id number] Univers 00:00:00 00:00:00 Only Unassigned, JAYY 350.1.13.10 ity of [place] [facility] 4.2.7.2.686 Juan as [phone] [facility] 009 Branch 2019-12-09 2019-12-09 Emergency E MHSE MHSE 7503 MH 09:16:00 09:16:00 [facility] 2019-06-15 2019-06-15 [facility] 1.2.840.114 [id number] Univers 11:46:39 15:08:00 Mary Jo Abernathy 350.1.13.10 ity of [place] [phone] [place] [address] Branch Results Test Description Test Time Test Comments Results Result [facility] e Comments - CT ABD PELVIS 2021-03-20 W/CONT 13:55:00 [facility] CAROLYNLANDName: EDEN CHAKRABORTY : 1975 Sex: F Name: EDEN CHAKRABORTY : 1975 Age/S: 45 / F [address] [place] Unit #: [id number] Loc: [place] [address] Phys: Lemuel Villanueva DO Acct: [id number] Dis Date: Status: REG ER PHONE #: [phone] Exam Date: 03/20/2021 1335 FAX #: Reason: epigastric pain, h/o Crohn's, SBO EXAMS: CPT: [id number] CT ABD PELVIS W/CONT 06761 Site ID: [id number] CLINICAL HISTORY: Epigastric abdominal [...] joint arthritis. IMPRESSION: No acute findings at 1355 Reported and signed by: Kang Bates M.D. PAGE 1 Signed Report (CONTINUED) Name: EDEN CHAKRABORTY : 1975 Age/S: 45 / F [address] [address] [place] Unit #: [id number] Loc: [place] [address] Phys: Lemuel Villanueva DO Acct: [id number] Dis Date: Status: REG ER PHONE #: [phone] Exam Date: 03/20/2021 1335 FAX #: Reason: epigastric pain, h/o Crohn's, SBO EXAMS: CPT: [id number] CT ABD PELVIS W/CONT 72644 <Continued> CC: Lemuel Villanueva DO Technologist:Miryam Anthony, RT(R)(CT) CTDI: DLP: Trnscb Date/Time: 03/20/2021 (3793) [email or web address] Orig Print D/T: S: 03/20/2021 (5166) PAGE 2 Signed Report - XR RIBS UNI 2021-03-20 W/CXR 3+V LT 13:47:00 [facility] : 1975 Sex: F Name: EDEN CHAKRABORTY [facility] : 1975 Age/S: 45 / F [address] [address] [place] Unit #: [id number] Loc: [place] [address] Phys: Lemuel Villanueva DO Acct: [id number] Dis Date: Status: REG ER PHONE #: [phone] Exam Date: 03/20/2021 1231 FAX #: Reason: left rib pain EXAMS: CPT: [id number] XR RIBS UNI W/CXR 3+[place] [address] Fluoro Time: DAP (Gy m2): Air Kerma [...] CHAKRABORTY : 1975 Age/S: 45 / F [address] [address] [place] Unit #: [id number] Loc: [place] [address] Phys: Lemuel Villanueva DO Acct: [id number] Dis Date: Status: REG ER PHONE #: [phone] Exam Date: 03/20/2021 1231 FAX #: Reason: left rib pain EXAMS: CPT: [id number] XR RIBS UNI W/CXR 3+[place] [address] Fluoro Time: DAP (Gy m2): Air Kerma (mGy): <Continued> Technologist: Cady Pendleton, RT(R)(MR) Trnscb Date/Time: 03/20/2021 (1347) [email or web address] Orig Print D/T: S: 03/20/2021 (5062) PAGE 2 Signed Report HCG SERUM 2021-03-20 12:51:00 Test Item Value Reference Range Interpretation Comme nts HCG SERUM (test code = HCG) < 1 mi-IU/ML 0-6 N 0 - 6 NOT > 6 SUGGESTIVE OF EARLY RISES TWO FOLD EVERY 2 DAYS; SUGGEST RECONFIRMING AFTER 2 DAYS. 150,000-2 00,[address] TRIMESTER 10,000 - 50,000 2ND & 3RD TRIMESTER BASIC METABOLIC [id number] 12:49:00 Test Item Value Reference Range Interpretation [...] 8.5 MG/DL 8.5-10.1 N Completed by Nursing: NOHEPATIC FUNCTION [id number] 12:49:00 Test Item Value Reference Range Interpretation [...] N code = ALKP) Completed by Nursing: [id number] 12:49:00 Test Item Value Reference Range Interpretation Comments LIPASE (test code = LIP) 77 Unit/L 114-286 L Completed by Nursing: [id number] 12:49:00 Test Item Value Reference Range Interpretation [...] tarun yby method. Completed by Nursing: NOPROTHROMBIN [id number] 12:25:00 Test Item Value Reference Range Interpretation Comments PT PATIENT (test code = PTP) 10.7 SECONDS 9.3-12.9 N INTERNATIONAL NORMAL RATIO 0.96 INR Unit 0.8-1.2 N (test code = INR) CBC W/AUTO [id number] 12:23:00 Test Item Value Reference Range Interpretation [...] = MDIFF) UA RFLX MICR CULT IF [id number] 12:18:00 Test Item Value Reference Range Interpretation [...] URINE: CLEAN CATCHUA RFLX MICR CULT IF [id number] 12:18:00 Test Item Value Reference Range Interpretation [...] RiskForSepsis-no oth srcSOURCE OF URINE: CLEAN CATCHLACTIC [id number] 11:59:00 Test Item Value Reference Range Interpretation Comments LACTIC ACID (test code = LACT) 1.3 mmol/L 0.4-2.0 N - XR KNEE 3 V [id number] 21:05:00 [facility] : 1975 Sex: F Patient Name: EDEN CHAKRABORTY Unit No: [id number] EXAMS: CPT CODE: [id number] XR KNEE 3 V RT [address] Location: H3 Right knee x-ray exam: 3 views, 01/10/21 CLINICAL HISTORY: Atraumatic knee pain. Comparison exam: None of the knee Knee joint is fairly well-maintained. No erosion identified. No abnormal joint effusion. No abnormal calcific deposition. The overlying soft tissues appear unremarkable. IMPRESSION: Fairly unremarkable exam at 2105 Reported and signed by: Karina Huff MD CC: Timur Middleton MD; Karissa AWAD Technologist: Daquan Armas (RT) Transcrpt Date/Tm/Trnsp: 01/10/2021 (2104) [email or web address] Orig Print D/T: S: 01/10/2021 (2107) [facility] NAME: EDEN CHAKRABORTY [address] PHYS: [place] [address] : 1975 AGE: 45 SEX: F LOC: Z.ERS PHONE #: [phone] EXAM DATE: 01/10/2021 STATUS: REG ER FAX #: [phone] RADIOLOGY NO: [id number] PAGE 1 SignedReportCBC WITH DIFF 2020-10-29 13:24:00 Test Item Value Reference Range Interpretation Comments WBC (test code = See_Comment [Automated 0690-2) message] The sy stem which generated this [...] (test code = 51.6 fL 39-49.9 H 99481-8) RDW-CV (test code = 14.3 % 12-15.5 788-0) PLT (test code = See_Comment H [Automated 777-3) message] The sy stem which generated this result transmitted reference range : 166 - 358 10*3/ ?L. The reference r madelin was not used to interpret this result as normal/abnormal . MPV (test code = 8.9 fL 9.5-12.9 L 48312-2) NRBC/100 WBC (test See_Comment [Automat ed code = 0548090831) message] The system which generated this result transmitted reference range : 0.0 - 10.0 /100 WBCs. The refer ence range was not u sed to interpret th is result as normal/abnormal . NRBC x10^3 (test code <0.01 See_Comment [Auto mated = 1907265079) message] The s ystem which generated this result transmitted reference range : 10*3/?L. The reference range was not used to interpret this result as normal/abnormal . GRAN MAT (NEUT) % 43.5 % (test code = 770-8) IMM GRAN % (test code 0.50 % = 9780746614) LYMPH % (test code = 36.9 % 736-9) MONO % (test code = 11.5 % 5905-5) EOS % (test code = 6.5 % 713-8) BASO % (test code = 1.1 % 706-2) GRAN MAT x10^3(ANC) 2.80 10*3/uL 1.88-7.09 (test code = 1578375525) IMM GRAN x10^3 (test 0.03 10*3/uL 0-0.06 code = 2953772441) LYMPH x10^3 (test code 2.37 10*3/uL 1.32-3.29 = 731-0) MONO x10^3 (test code 0.74 10*3/uL 0.33-0.92 = 742-7) EOS x10^3 (test code = 0.42 10*3/uL 0.03-0.39 H 711-2) BASO x10^3 (test code 0.07 10*3/uL 0.01-0.07 = 704-7) Lab Interpretation Abnormal (test code = 58981-9) [facility] Metabolic Panel (NA, K, CL, CO2, GLUCOSE, BUN, CREATININE, CA)2020-10-29 10:07:00 Test Item Value Reference Range Interpretation Comments NA (test code = 133 mmol/L 135-145 L 6244271922) K (test code = 4.3 mmol/L 3.5-5 3097492075) CL (test code = 102 mmol/L 98-108 6627158117) CO2 TOTAL (test code = 28 mmol/L 23-31 8272096387) AGAP (test code = 2-16 7418491780) BUN (test code = 3 mg/dL 7-23 L 0661128544) GLUCOSE (test code = 103 mg/dL 70-110 6704323950) CREATININE (test code = 0.62 mg/dL 0.5-1.04 6737232357) CALCIUM (test code = 8.4 mg/dL 8.6-10.6 L 3952547156) eGFR Calculation mL/min/1.73m2 (Non-) (test code = 2858491489) eGFR Calculation mL/min/1.73m2 () (test code = 6164334747) RAUDEL (test code = RAUDEL) Association of [...] tests). Lab Interpretation Abnormal (test code = 33317-6) [facility] [id number] 10:07:00 Test Item Value Reference Range Interpretation Comments MAGNESIUM (test code = 2266776330) 1.5 mg/dL 1.7-2.4 L Lab Interpretation (test code = Abnormal 43464-5) [facility] [id number] 13:44:00 Test Item Value Reference Range Interpretation Comments URINE CULTURE (test < 10,000 CFU/mL mixed code = 630-4) aerobic organisms - suggests endogenous microbial contamination [facility] [id number] 10:45:00 Test Item Value Reference Range Interpretation Comments PHOSPHORUS (test code = 1525304426) 3.4 mg/dL 2.5-5 Lab Interpretation (test code = Normal 28331-3) [facility] Metabolic Panel (NA, K, CL, CO2, GLUCOSE, BUN, CREATININE, CA)2020-10-28 10:45:00 Test Item Value Reference Range Interpretation Comments NA (test code = 135 mmol/L 135-145 6541138854) K (test code = 4.0 mmol/L 3.5-5 5763861615) CL (test code = 101 mmol/L 98-108 6173027552) CO2 TOTAL (test code = 31 mmol/L 23-31 8717894936) AGAP (test code = 2-16 9683637956) BUN (test code = 4 mg/dL 7-23 L 9462745436) GLUCOSE (test code = 100 mg/dL 70-110 1771560442) CREATININE (test code = 0.70 mg/dL 0.5-1.04 3955118282) CALCIUM (test code = 8.3 mg/dL 8.6-10.6 L 0818846644) eGFR Calculation mL/min/1.73m2 (Non-) (test code = 3425636330) eGFR Calculation mL/min/1.73m2 () (test code = 0461279235) RAUDEL (test code = RAUDEL) Association of [...] tests). Lab Interpretation Abnormal (test code = 83318-8) [facility] [id number] 10:45:00 Test Item Value Reference Range Interpretation Comments MAGNESIUM (test code = 6707540252) 1.8 mg/dL 1.7-2.4 Lab Interpretation (test code = Normal 90049-1) [facility] WITH [id number] 10:13:00 Test Item Value Reference Range Interpretation Comments WBC (test code = See_Comment [Automated 0190-2) message] The sy stem which generated this result transmitted reference range : 4.30 - 11.10 10*3/?L. The reference range was not used to interpret this result as normal/abnormal . RBC (test code = See_Comment L [Automated 392-8) message] The sy stem which generated this [...] RDW-SD (test code = 48.4 fL 39-49.9 77818-5) RDW-CV (test code = 13.8 % 12-15.5 788-0) PLT (test code = See_Comment H [Automated 777-3) message] The sy stem which generated this result transmitted reference range : 166 - 358 10*3/ ?L. The reference r madelin was not used to interpret this result as normal/abnormal . MPV (test code = 9.1 fL 9.5-12.9 L 75303-4) NRBC/100 WBC (test See_Comment [Automat ed code = 9596552940) message] The system which generated this result transmitted reference range : 0.0 - 10.0 /100 WBCs. The refer ence range was not u sed to interpret th is result as normal/abnormal . NRBC x10^3 (test code <0.01 See_Comment [Auto mated = 5661455155) message] The s ystem which generated this result transmitted reference range : 10*3/?L. The reference range was not used to interpret this result as normal/abnormal . GRAN MAT (NEUT) % 55.3 % (test code = 770-8) IMM GRAN % (test code 0.40 % = 4366205358) LYMPH % (test code = 29.4 % 736-9) MONO % (test code = 9.4 % 5905-5) EOS % (test code = 5.1 % 713-8) BASO % (test code = 0.4 % 706-2) GRAN MAT x10^3(ANC) 3.83 10*3/uL 1.88-7.09 (test code = 7826926919) IMM GRAN x10^3 (test 0.03 10*3/uL 0-0.06 code = 3357755109) LYMPH x10^3 (test code 2.04 10*3/uL 1.32-3.29 = 731-0) MONO x10^3 (test code 0.65 10*3/uL 0.33-0.92 = 742-7) EOS x10^3 (test code = 0.35 10*3/uL 0.03-0.39 711-2) BASO x10^3 (test code 0.03 10*3/uL 0.01-0.07 = 704-7) Lab Interpretation Abnormal (test code = 52296-5) [facility] [id number] 07:50:00 Test Item Value Reference Range Interpretation Comments MAGNESIUM (test code = 8471104734) 1.1 mg/dL 1.7-2.4 L Lab Interpretation (test code = Abnormal 83389-9) [facility]2020-12-13 07:50:00 Test Item Value Reference Range Interpretation Comments APPEARANCE (test code = Hazy Clear A 2058885395) COLOR (test code = Yellow Yellow 3521400887) PH (test code = 4.8-8.0 5285092393) SP GRAVITY (test code = 1.003-1.030 7365892036) GLU U QUAL (test code = Normal Normal 5991829405) BLOOD (test code = Negative Negative 2334068661) KETONES (test code = Negative Negative 8393591165) PROTEIN (test code = Negative Negative 2887-8) UROBILIN (test code = Normal Normal 8818906196) BILIRUBIN (test code = Negative Negative 1208999595) NITRITE (test code = Negative Negative 7617907102) LEUK CHELY (test code = 25/uL Negative A 2614664326) RBC/HPF (test code = See_Comment [Autom ated message] 1602568604) The system Year Up generated this result transmitted ref erence range: 0 - 3 HP F. The reference range was not used to int erpret this result as normal/abnormal . WBC/HPF (test code = See_Comment [Autom ated message] 1879285811) The system Year Up generated this result transmitted ref erence range: 0 - 5 HP F. The reference range was not used to int erpret this result as normal/abnormal . BACTERIA (test code = Negative Negative 5187441035) MUCOUS (test code = Slight Negative LPF A 0983039287) SQ EPITH (test code = See_Comment [Auto mated message] 6510436689) The system Year Up generated this result transmitted ref erence range: <=2 HPF. The reference range was not used to int erpret this result as normal/abnormal . Lab Interpretation (test Abnormal code = 45443-3) [facility] Metabolic Panel (NA, K, CL, CO2, GLUCOSE, BUN, CREATININE, CA)2020-10-27 07:45:00 Test Item Value Reference Range Interpretation Comments NA (test code = 135 mmol/L 135-145 8512530755) K (test code = 3.2 mmol/L 3.5-5 L 7036647539) CL (test code = 99 mmol/L 98-108 3916631267) CO2 TOTAL (test code = 35 mmol/L 23-31 H 9117819399) AGAP (test code = 2-16 L 1325547533) BUN (test code = 3 mg/dL 7-23 L 1365469221) GLUCOSE (test code = 104 mg/dL 70-110 6263889548) CREATININE (test code = 0.66 mg/dL 0.5-1.04 7653012765) CALCIUM (test code = 7.5 mg/dL 8.6-10.6 L 4475503855) eGFR Calculation mL/min/1.73m2 (Non-) (test code = 2068955842) eGFR Calculation mL/min/1.73m2 () (test code = 4736064407) RAUDEL (test code = RAUDEL) Association of [...] tests). Lab Interpretation Abnormal (test code = 96372-5) [facility] with [id number] 07:24:00 Test Item Value Reference Range Interpretation [...] RDW-SD (test code = 46.6 fL 39-49.9 76539-0) RDW-CV (test code = 13.7 % 12-15.5 788-0) PLT (test code = See_Comment H [Automated 777-3) message] The sy stem which generated this result transmitted reference range : 166 - 358 10*3/ ?L. The reference r madelin was not used to interpret this result as normal/abnormal . MPV (test code = 9.1 fL 9.5-12.9 L 37791-7) NRBC/100 WBC (test See_Comment [Automat ed code = 8329751664) message] The system which generated this result transmitted reference range : 0.0 - 10.0 /100 WBCs. The refer ence range was not u sed to interpret th is result as normal/abnormal . NRBC x10^3 (test code <0.01 See_Comment [Auto mated = [id number]) message] The s ystem which generated this result transmitted reference range : 10*3/?L. The reference range was not used to interpret this result as normal/abnormal . GRAN MAT (NEUT) % 52.0 % (test code = 770-8) IMM GRAN % (test code 0.50 % = 7966978052) LYMPH % (test code = 34.7 % 736-9) MONO % (test code = 8.6 % 5905-5) EOS % (test code = 3.7 % 713-8) BASO % (test code = 0.5 % 706-2) GRAN MAT x10^3(ANC) 3.19 10*3/uL 1.88-7.09 (test code = 7612164808) IMM GRAN x10^3 (test 0.03 10*3/uL 0-0.06 code = 6643284384) LYMPH x10^3 (test code 2.13 10*3/uL 1.32-3.29 = 731-0) MONO x10^3 (test code 0.53 10*3/uL 0.33-0.92 = 742-7) EOS x10^3 (test code = 0.23 10*3/uL 0.03-0.39 711-2) BASO x10^3 (test code 0.03 10*3/uL 0.01-0.07 = 704-7) Lab Interpretation Abnormal (test code = 92477-6) [facility] [id number] 00:32:00COVID DMT InterpretationInterpretation/Recommendations: Molecular NAAT Tests for Active Infection with the SARS-CoV-2 Virus: This patient has a history of testing negative on multiple occasions for szkHLLO-XdU-0 virus that causes COVID-19 illness, with no [...] Virus: Testing for IgM and IgG antibodies 1-3weeks after illness onset will indicate whether the patient has produced antibodies to the virus. Atthis time, it is not known if the production of antibodies - specifically IgG antibodies - indicates whether the patient is immune to future infections with the SARS-CoV-2 virus. Interpretation Result Comments: These interpretation comments are based upon aggregate COVID-19 test results pooled from [facility]. They apply to the following tests offered at [facility] and assume the acceptable specimen type(s) were used: A. Tests for the Identification of SARS-CoV-2 RNA (Molecular NAAT Tests): ?- SARS-CoV-2 PCR assays including PantherAptima, [place] Fusion, [place] RealTime, and [email or web address] Xpert Xpress. ?- SARS-CoV-2 Rapid ID NOW by the ID NOW assay. ? B. Tests for the Identification of SARS-CoV-2 Antibodies: ?- Chemiluminescent immunoassays including Access SARS-CoV-2 IgM (DXI 600), VITROS Zifn-ZEMW-WcG-2 IgG (Vitros 5600and Vitros 3600), and Villarreal SARS-CoV-2 IgG (GROUND SUPPORT EQUIPMENT MECHANIC I System). These interpretations are autopopulated into [employer] based on computerized algorithms matching an interpretation code to the patient's setof test results, and a clinical pathologist evaluates the comments for accuracy. However, these comments do not consider testing a patient may have had outside of the [facility] system. If results for COVID-19 infection continue to be negative in the context of a suspected viral respiratory illness, it is possible the patient may have an infection with another respiratory virus. Influenza testing and a respiratory pathogen panel if clinically indicated may be beneficial in this setting. If there continuesto be a high degree of clinical suspicion for COVID- 19 illness despite multiple negative tests on nasopharyngeal specimens, then it may be necessary to test the patient for the SARS-CoV-2 virus using lower respiratory tract samples (such as sputum, bronchoalveolar lavage fluid (BAL), tracheal aspirate, etc.). ? [facility] LABORATORY SERVICESCOVID BbviftgCPNK-XdA-9 Rapid ID NOW (no units) ? ? Date ? Value ? 10/24/2020 ? Not Detected ? ? ? 2020 ? Not Detected ? ? ? 09/25/2020 ? Not Detected ? ? ? 09/10/2020 ? Not Detected ?? ? 09/04/2020 ? Not Detected ? ? ? 08/17/2020 ? Not Detected ? ? ? 07/23/2020 ? Not Detected ? [facility]ORAT[facility] SERVICESUnDell Children's Medical CenterCBC with Differential 2020-10-26 11:58:00 Test Item Value Reference Range Interpretation [...] RDW-SD (test code = 47.2 fL 39-49.9 67368-9) RDW-CV (test code = 14.5 % 12-15.5 788-0) PLT (test code = See_Comment H [Automated 777-3) message] The sy stem which generated this result transmitted reference range : 166 - 358 10*3/ ?L. The reference r madelin was not used to interpret this result as normal/abnormal . MPV (test code = 10.1 fL 9.5-12.9 92330-5) NRBC/100 WBC (test See_Comment [Automat ed code = 6187026049) message] The system which generated this result transmitted reference range : 0.0 - 10.0 /100 WBCs. The refer ence range was not u sed to interpret th is result as normal/abnormal . NRBC x10^3 (test code <0.01 See_Comment [Auto mated = 3635583588) message] The s ystem which generated this result transmitted reference range : 10*3/?L. The reference range was not used to interpret this result as normal/abnormal . GRAN MAT (NEUT) % 50.3 % (test code = 770-8) IMM GRAN % (test code 0.50 % = 7928872078) LYMPH % (test code = 36.9 % 736-9) MONO % (test code = 7.6 % 5905-5) EOS % (test code = 4.2 % 713-8) BASO % (test code = 0.5 % 706-2) GRAN MAT x10^3(ANC) 2.76 10*3/uL 1.88-7.09 (test code = 6957124838) IMM GRAN x10^3 (test 0.03 10*3/uL 0-0.06 code = 8678219547) LYMPH x10^3 (test code 2.03 10*3/uL 1.32-3.29 = 731-0) MONO x10^3 (test code 0.42 10*3/uL 0.33-0.92 = 742-7) EOS x10^3 (test code = 0.23 10*3/uL 0.03-0.39 711-2) BASO x10^3 (test code 0.03 10*3/uL 0.01-0.07 = 704-7) Lab Interpretation Abnormal (test code = 33903-5) [facility] CenterMagnesium [id number] 04:43:00 Test Item Value Reference Range Interpretation Comments MAGNESIUM (test code = 4838945954) 1.0 mg/dL 1.7-2.4 L Lab Interpretation (test code = Abnormal 88126-2) [facility] Metabolic Panel (NA, K, CL, CO2, GLUCOSE, BUN, CREATININE, CA)2020-10-26 04:43:00 Test Item Value Reference Range Interpretation Comments NA (test code = 136 mmol/L 135-145 9344849921) K (test code = 2.8 mmol/L 3.5-5 LL 1842004273) CL (test code = 97 mmol/L 98-108 L 4150844272) CO2 TOTAL (test code = 35 mmol/L 23-31 H 7570560406) AGAP (test code = 2-16 0031681546) BUN (test code = 3 mg/dL 7-23 L 5735610510) GLUCOSE (test code = 116 mg/dL 70-110 H 4136359507) CREATININE (test code = 0.81 mg/dL 0.5-1.04 6803800507) CALCIUM (test code = 7.2 mg/dL 8.6-10.6 L 0613740994) eGFR Calculation mL/min/1.73m2 (Non-) (test code = 9733824751) eGFR Calculation mL/min/1.73m2 () (test code = 7905647778) RAUDEL (test code = RAUDEL) Association of [...] tests). Lab Interpretation Abnormal (test code = 91029-4) [facility] CenterPhosphorus [id number] 04:35:00 Test Item Value Reference Range Interpretation Comments PHOSPHORUS (test code = 6175292567) 3.0 mg/dL 2.5-5 Lab Interpretation (test code = Normal 92166-7) [facility] CenterCB with Vnclnnrzllvy1002-99-57 04:11:00 Test Item Value Reference Range Interpretation Comments WBC (test code = See_Comment [Automated 6290-2) message] The sy stem which generated this result transmitted reference range : 4.30 - 11.10 10*3/?L. The reference range was not used to interpret this result as normal/abnormal . RBC (test code = See_Comment L [Automated 029-8) message] The sy stem which generated this [...] RDW-SD (test code = 45.6 fL 39-49.9 70891-7) RDW-CV (test code = 13.4 % 12-15.5 788-0) PLT (test code = See_Comment H [Automated 777-3) message] The sy stem which generated this result transmitted reference range : 166 - 358 10*3/ ?L. The reference r madelin was not used to interpret this result as normal/abnormal . MPV (test code = 9.2 fL 9.5-12.9 L 47444-2) NRBC/100 WBC (test See_Comment [Automat ed code = 8471113849) message] The system which generated this result transmitted reference range : 0.0 - 10.0 /100 WBCs. The refer ence range was not u sed to interpret th is result as normal/abnormal . NRBC x10^3 (test code <0.01 See_Comment [Auto mated = 8570214560) message] The s ystem which generated this result transmitted reference range : 10*3/?L. The reference range was not used to interpret this result as normal/abnormal . GRAN MAT (NEUT) % 55.9 % (test code = 770-8) IMM GRAN % (test code 0.40 % = 7912333173) LYMPH % (test code = 31.9 % 736-9) MONO % (test code = 8.4 % 5905-5) EOS % (test code = 3.1 % 713-8) BASO % (test code = 0.3 % 706-2) GRAN MAT x10^3(ANC) 3.80 10*3/uL 1.88-7.09 (test code = 2369680692) IMM GRAN x10^3 (test 0.03 10*3/uL 0-0.06 code = 6300968060) LYMPH x10^3 (test code 2.17 10*3/uL 1.32-3.29 = 731-0) MONO x10^3 (test code 0.57 10*3/uL 0.33-0.92 = 742-7) EOS x10^3 (test code = 0.21 10*3/uL 0.03-0.39 711-2) BASO x10^3 (test code <0.03 0.01-0.07 = 704-7) Lab Interpretation Abnormal (test code = 05843-4) [facility] CenterCT ABDOMEN PELVIS W [id number] 14:39:02 1. ?Postsurgical changes of recent ileostomy [...] TECHNIQUE AND FINDINGS: CT examination acquisition dated [facility]24/2020[facility], labeled with the patients name, wassubmitted for review. CT abdomen and pelvis was obtained from the levellung bases to the proximal thighs. Images were loaded to the PACS archiveand reviewed on a PACS workstation. FINDINGS: LOWER THORAX: Linear atelectasis in thelower lobes. LIVER: Normal contour. Focal fatty infiltration along the falciformligament. GALLBLADDER AND BILIARY TREE: No biliary ductal dilation. The gallbladderis decompressed, unremarkable. SPLEEN:No splenomegaly. PANCREAS: No ductal dilation or masses. ADRENAL GLANDS: No adrenal nodules. KIDNEYS: No hydronephrosis, stones, or masses. PERITONEUM AND RETROPERITONEUM: No intra-abdominal free air. Diffusemesenteric [...] underneath the surgical asia, suggestive of postsurgical seroma. A 2.0 x 4.4 x 2.8 cm simple fluid collection overlies theprevious stomasite in the right hemiabdomen. No definite [...] BONES AND SOFT TISSUES: No suspicious lytic orsclerotic bony lesions.Degenerative changes in the bilateral hips. [facility], Radiant Results Inft User -10/25/2020 8:40 AM CSTEXAM: CT ABDOMEN/PELVIS WITH CONTRASTHISTORY: abdominal pain , outside image. Recent ileostomy reversal. COMPARISON: CT abdomen and pelvis 09/01/2020TECHNIQUE AND FINDINGS: [facility], [...] unremarkable.SPLEEN: No splenomegaly.PANCREAS: No ductal dilation or masses.ADRENAL GLANDS: No adrenal nodules.KIDNEYS: No hydronephrosis, stones, or masses.PERITONEUM AND RETROPERITONEUM: No intra-abdominal free air. Diffusemesenteric fat stranding and small volume ascites in the perihepatic area.Surgical site dehiscence is suspected on the midline supraumbilical fasciaat the level of L3with fascial opening measuring 1.6 cm (series 501:46).Bulging [...] left hemiabdomen (502:56). No discretetransient point is tracie ntified. Changes of ileostomy reversal is noted inthe [...] ileostomy reversal surgery with intactanastomosis margins in the distal ileum.2. Suspected dehiscence of midline supraumbilical fascia withapproximately 1.6 cm opening andherniation of omental fat through thedefect.3. Multiple subcutaneous fluid collections, likely postsurgical seromas. A5.2 cm irregularly-shaped thick-walled fluid collection in the pelvisbetween the bladder and the rectum, possibly an abscess. Anotherdifferential consideration is an enlarged corpus luteum, as seen on theprior imaging. Please correlate clinically.4. Diffuse gastric and small bowel wall thickening with mild dilatation ofjejunum, likely due to nonspecific inflammatory changes. Mild postoperativeileus may be present.Preliminary Report Dictated by Resident: Fanny Adler MD., have reviewed this study and agree with theabove report.[facility] CenterCOVID[facility] (ID NOW RAPID TESTING)2020-10-25 01:48:00 Test Item Value Reference Range Interpretation Comments SARS-CoV-2 Rapid ID NOW Not Detected Not Detected (test code = 77340-7) RAUDEL (test code = RAUDEL) ID NOW COVID-19 Assay is an isothermal nucleic acid amplification test intended for the qualitative detection of nucleic acid from SARS-CoV-2 viral RNA in nasopharyngeal (DRIVER'S LICENSE REVIEWING OFFICER) specimens. It is used under Emergency Use [...] acid from SARS-CoV-2 viral RNA in nasopharyngeal (DRIVER'S LICENSE REVIEWING OFFICER) specimens. It is used under Emergency Use [...] indicated. Lab Interpretation Normal (test code = 72540-1) [facility] METABOLIC PANEL (NA, K, CL, CO2, GLUCOSE, BUN, CREATININE, CA)2020-10-24 23:16:00 Test Item Value Reference Range Interpretation Comments NA (test code = 137 mmol/L 135-145 5681493000) K (test code = 3.5 mmol/L 3.5-5 3943599637) CL (test code = 101 mmol/L 98-108 5062815980) CO2 TOTAL (test code = 31 mmol/L 23-31 8377882657) AGAP (test code = 2-16 6669207926) BUN (test code = 5 mg/dL 7-23 L 7551903366) GLUCOSE (test code = 80 mg/dL 70-110 6976577828) CREATININE (test code = 0.57 mg/dL 0.5-1.04 8028051527) CALCIUM (test code = 7.4 mg/dL 8.6-10.6 L 0286371917) eGFR Calculation mL/min/1.73m2 (Non-) (test code = 7559712689) eGFR Calculation mL/min/1.73m2 () (test code = 1382589764) RAUDEL (test code = RAUDEL) Association of [...] tests). Lab Interpretation Abnormal (test code = 75300-9) [facility] WITH [id number] 23:09:00 Test Item Value Reference Range Interpretation Comments WBC (test code = See_Comment [Automated 0090-2) message] The sy stem which generated this result transmitted reference range : 4.30 - 11.10 10*3/?L. The reference range was not used to interpret this result as normal/abnormal . RBC (test code = See_Comment L [Automated 349-8) message] The sy stem which generated this [...] RDW-SD (test code = 46.5 fL 39-49.9 06322-9) RDW-CV (test code = 13.4 % 12-15.5 788-0) PLT (test code = See_Comment H [Automated 747-3) message] The sy stem which generated this result transmitted reference range : 166 - 358 10*3/ ?L. The reference r madelin was not used to interpret this result as normal/abnormal . MPV (test code = 9.4 fL 9.5-12.9 L 46738-6) NRBC/100 WBC (test See_Comment [Automat ed code = 6554127809) message] The system which generated this result transmitted reference range : 0.0 - 10.0 /100 WBCs. The refer ence range was not u sed to interpret th is result as normal/abnormal . NRBC x10^3 (test code <0.01 See_Comment [Auto mated = 2673708552) message] The s ystem which generated this result transmitted reference range : 10*3/?L. The reference range was not used to interpret this result as normal/abnormal . GRAN MAT (NEUT) % 54.7 % (test code = 770-8) IMM GRAN % (test code 0.50 % = 4891879908) LYMPH % (test code = 35.9 % 736-9) MONO % (test code = 6.3 % 5905-5) EOS % (test code = 2.3 % 713-8) BASO % (test code = 0.3 % 706-2) GRAN MAT x10^3(ANC) 3.37 10*3/uL 1.88-7.09 (test code = 0109080622) IMM GRAN x10^3 (test 0.03 10*3/uL 0-0.06 code = 2993370494) LYMPH x10^3 (test code 2.21 10*3/uL 1.32-3.29 = 731-0) MONO x10^3 (test code 0.39 10*3/uL 0.33-0.92 = 742-7) EOS x10^3 (test code = 0.14 10*3/uL 0.03-0.39 711-2) BASO x10^3 (test code <0.03 0.01-0.07 = 704-7) Lab Interpretation Abnormal (test code = 68282-1) [facility] CenterCLOSTRIDIUM DIFFICILE [id number] 17:18:00 Test Item Value Reference Range Interpretation Comments Clostridioides (Clostridium) Negative Negative difficile (test code = 58331-8) Lab Interpretation (test code = Normal 95379-6) [facility] METABOLIC PANEL (NA, K, CL, CO2, GLUCOSE, BUN, CREATININE, CA)2020-10-17 23:42:00 Test Item Value Reference Range Interpretation Comments NA (test code = 135 mmol/L 135-145 0746172025) K (test code = 4.0 mmol/L 3.5-5 8918769721) CL (test code = 105 mmol/L 98-108 8286932405) CO2 TOTAL (test code = 22 mmol/L 23-31 L 7052684675) AGAP (test code = 2-16 0216343945) BUN (test code = 8 mg/dL 7-23 5823394274) GLUCOSE (test code = 127 mg/dL 70-110 H 5408799792) CREATININE (test code = 0.96 mg/dL 0.5-1.04 0495894776) CALCIUM (test code = 8.7 mg/dL 8.6-10.6 9365900958) eGFR Calculation mL/min/1.73m2 (Non-) (test code = 5451212435) eGFR Calculation mL/min/1.73m2 () (test code = 0928712930) RAUDEL (test code = RAUDEL) Association of [...] tests). Lab Interpretation Abnormal (test code = 78064-6) [facility] PATHOLOG[facility] [id number] 19:12:00 Test Item Value Reference Range Interpretation Comments Case Report (test code Surgical Pathology ? ? = [id number]) ?Case: [id number] ? Authorizing Provider: ?Darren Chun MD ?Collected: ? 10/14/2020 0901 ?Ordering Location: ? ? [facility] OR ? Received: ?10/14/2020 1106 ? Department ? Pathologist: ? Marian Gr MD ? Specimens: ? A) - STOMA, Ileostomy ? B) - COLON, Ileocolic anastamosis ? Final Diagnosis (test g2rjbZUcZDNya5aaCKMylR code = 7767715221) FuZzEwMzNcZnRuYmpcdWMx VHserlBlYScum5NxT5UrFu AwMFxhbnNpXGRlZmxhbmcx LZErHIT9vlMcKFSfPFtkHM IiVGbrAs4eeIIwxUcaScJs UBKzy2gkthKTzbkmcCy9k0 yiQVErDyH4bEJmTPkuD4gz ztMynRDqFWOlWCq0hS30CW MxyT4hqYGiNXcnuyDzIjU1 EZbwGIHyIeG4HIObnEDlQL SpR3yvNSReTWjoUDNqNAqg gXEeMNG7kTdfu8Z2uYNyaV AsjRvqCtOaCqItFLXQj6Eq CDq0iTixC0OfVGQjUrP3gZ QgUGFyYWdyYXBoIEZvbnQ7 iC66QKgbzhO0rGBbu2Tvm5 9yl718vR4zfFZjMHH0APMr HAVizJRuCQRhVIR6HNCpxG QnE6jfKFztEP2atqtcXQG4 MFxtYXJndDcyMFxtYXJnYj UpoAIdPDNjpRgxFKmte780 NMT4PpTuNS4aR5Tbm3A0gO 9maXRcZGVmdGFiNzIwXGZv wr0hcLFoUMauq7TlAOB7yb U5rJPemWXvRKPkHA49Bphr f4QqJjtiKKM0NJHpwsDhh8 Nlc3bqElXtbmRrR1nbG6Aw ZHJoZWFkXHBnYnJkcmZvb3 Mzq8NjgYXcxAb1g9gyCFUz BSJgxOnjv0aeVPA5IAYxZ5 H5gUFga6umWIuuUVSjxKV8 qmIkEHBxgDGbS7GuvD7jFW qaKV7anja6x5rqDqYoMN7p zvkok9jiQYpaAYLrKGC2Si IbYSFng7LpjnikXdNvk8Pp nJDrCStkM16mn542OXCgpr GqI5mekVDbrznyuPEsykio LGxqodK2ZPWbMRLqUQgnPB YxXGZzMjBcbGFuZzEwMzNc aGljaFxmMVxkYmNoXGYxXG swN9hjNmLgAgHbKYucWRXg XC1lE17IX87gFSlDSO4DRK 4TGGNVSN5JFYdqZOpJHWLB D640GYLarqUqIVIbYI4sOz DTXGjQVXRMMO9fXV7WRThF WOVFVDWIS2FUDASPHQPAJP TBL9SZHKAFEOSXLilXJ1KU B00iLB5CPTSYCrWRG9HaMN IVI9fKXilqcCCuSIHoXHNm XZSeG62AT1bOYRBPYKWKEC VMMIjXAB6QQZ7EHPfgYFSo rNXnYKZbXTWHEA7TVZNQQV YVM87FYAAmAU2JR1PUSD4J NJPsLFIWG2mKAY2CBvuhEJ IgICAgICAtIEJFTklHTiBD B7eQEuBZZaLnNLzMVXtaVR qBV7TDXApPPYidO31YJ2LZ ZJJARLGKT6WXCFskA11OJ1 zHIQWWQBGYLSFFXKvUVS6I X4uDP8tmJRViFOAdIAWlWM UKXcUZCL4KP4LIK4lvNXX4 s1mroSHxAPHlkVSlXsImGM JzDYFvv3zlYKRarZFoGvNd MzNcZnRuYmpcdWMxXGRlZm Nfh3rme187aZPri7nsJIEh KkO1nVIuPIAinZswgzl3kN pbQjFxTALba2nowrOiCzWp VTNjCRWuLCBdiYCsA482TL NaBHuns2esn5IbENXzwKSb z9S2SBXLYWbmYkVvL834y2 qyt2bnybTziNM3KGBbVVL8 TPtzswRkxoN3XTwpeUVgQb C3FHrxxjRgMTvhnnMjqcRg Ryd1UELpQ253VGH0pNyzg9 ofFKD6PSTlPXDrWoznSu9s gFFbM545UJJjJQULJUXdeP c8DHBrclEujiCiaXOFs217 H007i5jlSTPfsyNyjRvTfc xnh6stZ266AWAdeMXmonLx ZlHjODWyfQDohPV1ADDoKL 1hrflwALcnTHazDZLylqV1 RJTnwWHlX7MnXQVbWI6fpt qtUKB0DAolSQBzAKH5FhTw BFJnn3Umqjx6JrWaka8wuk 58XKX7l2BgfUiaGEE2UEQ6 DzMzQu1xyRNmCQAaQJ4tQf ZkeAWjJNVbrz42kVfgLNpn jhEqqA9uJsAbUUOrsYHvSB CrDZ4eaVBbTGZrcP0jrrtg XHBnYnJkcmhlYWRccGdicm IpEg2jzPjdRDS5PAsiQ3tr xN6hLeP1LEjvE1rmeJ7iJL u2YKosgEP7SCWyzW8xAI1e cqcet8obTPucSUfcHADcsi Y4exP2IEUbbLKlV4MayF6g HBRlUW5bhbaac7yfBRX9BZ izCDDbYZA1QvEwLVBsa8Ul bho6ItGzu9DxcAZeCIlsJ3 9nz825BNNcheTfQ3kwgJLt ibtgkHNrjiaiOObkwsL7FP FsXHBsYWluXGYxXGZzMjBc bGFuZzEwMzNcaGljaFxmMV owRzKiFHVaBGvhV7ynSoMr O2NrRSAvYqYwdSQkNAwaxI F3YCAyCVHjk56unVt1ORCd njbal8RnYLPjvKOwpZWrsD 3txzUnk6vdOPJeVCJhYYQb M2JhOEJ5mZIoSYFdlMNuuL G2MK0ukgWiPF2kGWFpWnch cmVzaWRlbnRzLCBmZWxsb3 cbUL0aZOUgwTwwxA0mxMW3 SVEde5uddXHxyZAci4ljn2 UgbmFtZShzKSBtYXkgYXBw KZXcSD0nVKOsvEIxlnWpn7 Y3McasxGPgesykItixjaO7 JNqzovljDJPkJPysA3zbRj BdWETzwFsqXqdyr2HcKTBz XGZzMjhccGFyfX0= Clinical Information Ileostomy care [Z43.2] (test code = 7645931223) Gross Description (test x0tccXDbHLBakGVaArSpMH code = 4946387575) NeUJOsw6zcODXdcILbFjLm MzNcZnRuYmpcdWMxXGRlZm Cbt2cxj149hNHmp0gtIXRz RqB2zYTvGUSiaRMuV298FF WkVCzvm8mum8TlWQBorMTj w5K7DXHDmuelmAv0nTfeC0 1ca4K9StteK7xoFIIfWWCk Z5OaVC9qBTCsVou0ENO0ZW X6RKNhPQWyS0QpIC6eEZAg nPYuLSf4q7cwjBonPMGkVA V2t4hlGQtdxcCoMV9rki9y kLk1e6mmlmKdTUPfLAJoxV JNGLSzW0OsgXvjGm4soSs2 iAbhAuhbNYU6Fgq2FP5fsq 82vfl4pKvgITFwfyngKcL3 MErqZCPupqtjTWc4FFwcHN AzsEOpCHHbjHFzY9ZyXWyu UG5zknx2FaPjXP4ywqwvXV uwIZHgEHV7OrIrKYWvh3Ez uqdxSxNlsq4yju93HXH8y8 HatYlkDOQ8OOT7SkIvOc6q lMNkKJNxMR0oPzBmnXOaGX Cbji09qRyzIXnywjJfuK6h JeYnCJBsuFHpAQUdHP3szX KxXDVyzV5kktvsDNUsBlGg kccgIRUdsSdnsvSnDh2wbS moPMA1LPkwP5nrwI7hBnR0 VCqvC9djmD1sZJv6PRksnM W3GPIzqB9pLC9kidaxx7eb DZN2OJlxWOKlwvK1rdQgAX PbbFBmQ5GsgF72EvVzdWTy V4ZczB0fXGihKFHklxz5Bx FtNd3pnYTygVM3TMsdJuiw YWdlXHBnbmNvbnRccGduZG VjXHBsYWluXHBsYWluXGYw ITOjTzHtgUmvdQkpbS0fPj CsPeEiILyxWN4eADDyH1kl yMSoRFFyJVQiB5gcNgSkhQ 9jaFxmMVxmczIwIFNwZWNp bARuIQOpdrXaSIn6QSOzTf Dqy3hygISjNQjqYFY9cIAz eMX3xMMlnUcaCE2fnLEgBX ABTL91jGAzqgugTiNgNcWz fFpxj2ExRLFdtQNwd6ZszL pcl2UlaIRxNWLyTWQdq12o mOP7qfUpXiBpgoNcaMZau4 NxwInbkTFgYYHaf55kj1Ti C7tdMV7rw0r6gQRyNVM4ss mcB7HpgWsxu2U9jDQnJPCn qU2jBVVwcqLfNPRhnAIikJ AsWUNmx3I6ULKrS64fylGw t2XvTo28VWfwJMWoOHAdwV EbduRhPO5bpHoxNU2yGNLf NiBjbSBkaWFtZXRlcikuIC CEhASjn2VtAS20G01bLINr oJO7aNVew2TtgXAluIGkNY LwqlQvoHLzsZParG3jP3Rb pF72MB6xy1v0tBGkBVUdcP 3akglpKJ1kMNWayKAhuAVx DTNfeP8bDGDbMoWzsTikVT DgNRJxiGBlfMAqdJSgQ5wj SDmcCMPjgB53TIIbRS0fUU QvFCIojPEwsM3bpbAlmrPp sBWmIBSwdtF1WAHrpC1sGB VucmVtYXJrYWJsZSBpbnRl m2JyykOoQM22U23mZP7zCq PmlfIcNU14YEYjflEkXtAk jY24fDnro96il8QrfCAyoL FyEGyydYzvqkPvEPG8nT2i eaQmxjWnt1WphCm3mZVaIA FzIEExXHBsYWluXGYwXGZz MjBcbGFuZzEwMzNcaGljaF lyWXbfHjIkLDTgOZcxT6ng RvKlLuFcXNg5NCBcTAUlBz o5SUYxMCfwAQHwSHTuFpWo bGFuZzEwMzNcaGljaFxmMV niUzFtAFBfKYbpC0mwJdHj HrRcZJOWJd9qdKHyFSGvht ALuMUimB5hnbPEWYBdQ0Zu dmVkIGZyZXNoIGxhYmVsZW Nev7w4tPK1zPXitUD0sEGr dKvkRX3veRWhBIOOAM34wJ BislgnZqLzXgVovTzcr2Qo AYHtyGUdR05hfLDtZP7nt4 RbxW7sgOEtAQVqNLTtj68t uIB2tsGeTtAtkmUexhPxN6 DxVZCnl9GbcBCayYNyQmTe agLwwA4yk2RbIZZdm2mapP E9tCEmAW36cDPwtXyvNBI4 ETSlMXOrNSVtuJ5iRKr4Dj QyfDHbVnAuhEZlUqkbV80x FkUsS6DndEdxVM3ufmdklx IjNVBvJSNrbSXgq2RnTLEb LWPjbtJdqsE7adYcpAYmm6 TlkCAeL32ab49wVzPbfkCx fZnsXXzxyIArx3GsHYVnHG XgkoRwDV41GyByCFqbNMgf zVLqo6UzIAgsxkHhZIZwdC serFLfdWEuj2v9xO6dEEwf bHltcGhvaWQgaHlwZXJwbG RyuNNiMQGtSXGuUX6mZG7d AMPwhDAjp5OodOD4rFXlHB FkM4Amo43kXKKkCDWfxAHz fEK4QJEnYGOiGiUsjDnrvI 3uXlQbGpLoMEobXY6mRLCg G3yndAHnVCZcRLLlN3geRf GfpN2qpBjtJJghfdOoTHS2 WmTvINsaIUPtbGtguE2mBk LhWaKfVCmvWS9bPWEdT6pu bEXlHRZuILTtZ4buFaWnoI 9jaFxmMVxmczIwIEIyLlxw YXJccGFyXHBhcmRccGxhaW 5cZjBcZnMyNFxwbGFpblxm MVxmczIwXGxhbmcxMDMzXG dtX4ecXhRsHQDlnCehAOon l9VnEROqMOUyKoCnHQB8wF DXsP36BHZrMQGnNAOclCgy wX5rmHI1KOAdc7mveTWywE lccGFyfQ== Embedded Images (test code = 7469700737) [facility] [id number] 21:21:00 Test Item Value Reference Range Interpretation Comments MSSA Screen by Phill BERMUDEZ (test code Negative Negative = 27543-0) MRSA/MSSA Positive? (test code = No No [id number]) Lab Interpretation (test code = Normal 67991-9) [facility]ysis[facility] 06:06:00 Test Item Value Reference Range Interpretation Comments APPEARANCE (test code = Cloudy Clear A 2986292251) COLOR (test code = Kathleen Yellow A 2139186753) PH (test code = 4.8-8.0 8835626982) SP GRAVITY (test code = 1.003-1.030 1386403172) GLU U QUAL (test code = Normal Normal 4644651758) BLOOD (test code = 1+ Negative A 5485492860) KETONES (test code = 5 mg/dL Negative A 0853112481) PROTEIN (test code = 100 mg/dL Negative A 2887-8) UROBILIN (test code = 2.0 mg/dL Normal A 4032674524) BILIRUBIN (test code = Negative Negative 3488730956) NITRITE (test code = Negative Negative 6409636108) LEUK CHELY (test code = Negative Negative 6601827939) RBC/HPF (test code = See_Comment H [Autom ated message] 7333722181) The system Year Up generated this result transmit carl reference range : 0 - 3 HPF. The refe rence range was not u sed to interpret th is result as normal/abnormal . WBC/HPF (test code = See_Comment [Autom ated message] [id number]) The system Year Up generated this result transmit carl reference range : 0 - 5 HPF. The refe rence range was not u sed to interpret th is result as normal/abnormal . BACTERIA (test code = Moderate Negative A 3070183356) MUCOUS (test code = Marked Negative LPF A 1864017363) SQ EPITH (test code = HPF 5085778881) CA OXALATE (test code = See_Comment H [Au tomated message] 3514511203) The system Year Up generated this result transmit carl reference range : <=1 HPF. The refere nce range was not u sed to interpret th is result as normal/abnormal . HYAL CAST (test code = See_Comment H [Aut omated message] 5187610406) The system Year Up generated this result transmit carl reference range : <=2 LPF. The refere nce range was not u sed to interpret th is result as normal/abnormal . GRAN CASTS (test code = See_Comment H [Au tomated message] 1482466310) The system Year Up generated this result transmit carl reference range : <=1 LPF. The refere nce range was not u sed to interpret th is result as normal/abnormal . Lab Interpretation (test Abnormal code = 82534-5) [facility] (ALB, T.PRO, BILI T, BU/BC, ALT, AST, ALK PHOS)2020-10-02 05:46:00 Test Item Value Reference Range Interpretation Comments TOTAL BILI (test code = 7856318768) 1.0 mg/dL 0.1-1.1 BILI UNCON (test code = 5285503935) 0.6 mg/dL 0.1-1.1 BILI CONJ (test code = 1616924042) 0.0 mg/dL 0-0.3 T PROTEIN (test code = 0770558547) 9.9 g/dL 6.3-8.2 H ALBUMIN (test code = 6428326515) 5.4 g/dL 3.5-5 H ALK PHOS (test code = 4712021950) 153 U/L 34-122 H ALTv (test code = 1742-6) 62 U/L 5-35 H AST(SGOT) (test code = 5589682520) 51 U/L 13-40 H Lab Interpretation (test code = Abnormal 38034-4) [facility] CenterLipase [id number] 05:46:00 Test Item Value Reference Range Interpretation Comments LIPASE (test code = 5032687845) 117 U/L 0-220 Lab Interpretation (test code = Normal 65223-0) [facility] (NA, K, CL, CO2, GLUCOSE, BUN, CREATININE, CA)2020-10-02 05:46:00 Test Item Value Reference Range Interpretation Comments NA (test code = 135 mmol/L 135-145 4882272605) K (test code = 4.4 mmol/L 3.5-5 7944121193) CL (test code = 102 mmol/L 98-108 3230955908) CO2 TOTAL (test code = 19 mmol/L 23-31 L 5084062462) AGAP (test code = 2-16 7062277103) BUN (test code = 19 mg/dL 7-23 6239144121) GLUCOSE (test code = 135 mg/dL 70-110 H 3220690703) CREATININE (test code = 1.19 mg/dL 0.5-1.04 H 4073760169) CALCIUM (test code = 11.3 mg/dL 8.6-10.6 H 0255094651) eGFR Calculation mL/min/1.73m2 (Non-) (test code = 3358258195) eGFR Calculation mL/min/1.73m2 () (test code = 8723299751) RAUDEL (test code = RAUDEL) Association of [...] tests). Lab Interpretation Abnormal (test code = 85414-5) [facility] with [id number] 05:34:00 Test Item Value Reference Range Interpretation Comments WBC (test code = See_Comment [Automated 7070-2) message] The sy stem which generated this [...] RDW-SD (test code = 40.6 fL 39-49.9 69675-4) RDW-CV (test code = 11.9 % 12-15.5 L 788-0) PLT (test code = See_Comment H [Automated 777-3) message] The sy stem which generated this result transmitted reference range : 166 - 358 10*3/ ?L. The reference r madelin was not used to interpret this result as normal/abnormal . MPV (test code = 9.9 fL 9.5-12.9 94844-8) NRBC/100 WBC (test See_Comment [Automat ed code = 1126374073) message] The system which generated this result transmitted reference range : 0.0 - 10.0 /100 WBCs. The refer ence range was not u sed to interpret th is result as normal/abnormal . NRBC x10^3 (test code <0.01 See_Comment [Auto mated = 5172792779) message] The s ystem which generated this result transmitted reference range : 10*3/?L. The reference range was not used to interpret this result as normal/abnormal . GRAN MAT (NEUT) % 38.8 % (test code = 770-8) IMM GRAN % (test code 0.20 % = 6703302112) LYMPH % (test code = 51.7 % 736-9) MONO % (test code = 7.4 % 5905-5) EOS % (test code = 0.9 % 713-8) BASO % (test code = 1.0 % 706-2) GRAN MAT x10^3(ANC) 2.27 10*3/uL 1.88-7.09 (test code = 3920644111) IMM GRAN x10^3 (test <0.03 0-0.06 code = 3347709104) LYMPH x10^3 (test code 3.02 10*3/uL 1.32-3.29 = 731-0) MONO x10^3 (test code 0.43 10*3/uL 0.33-0.92 = 742-7) EOS x10^3 (test code = 0.05 10*3/uL 0.03-0.39 711-2) BASO x10^3 (test code 0.06 10*3/uL 0.01-0.07 = 704-7) Lab Interpretation Abnormal (test code = 59148-2) [facility] CenterHCV BY [id number] 17:03:00 Test Item Value Reference Range Interpretation Comments HCV by Real-Time Not Detected Not detected IU/mL PCR (test code = 6409183179) RAUDEL (test code = [employer] RealTime HCV RAUDEL) reverse fundraising director-polymerase chain reaction(RT-PCR) assay is used. It is [...] 0 IU/mL,>100,000,000 IU/mL: >upper limit of quantification. [facility] CenterCOMP. METABOLIC PANEL (50208)2020-09-16 15:03:00 Test Item Value Reference Range Interpretation Comments NA (test code = 135 mmol/L 135-145 8020790819) K (test code = 4.4 mmol/L 3.5-5 3454311121) CL (test code = 111 mmol/L 98-108 H 5823441186) CO2 TOTAL (test code = 21 mmol/L 23-31 L 5379372990) AGAP (test code = 2-16 0800127652) BUN (test code = 11 mg/dL 7-23 8297339440) GLUCOSE (test code = 115 mg/dL 70-110 H 2471272512) CREATININE (test code = 0.83 mg/dL 0.5-1.04 7887385844) TOTAL BILI (test code = 0.5 mg/dL 0.1-1.4 6502633776) CALCIUM (test code = 8.3 mg/dL 8.6-10.6 L 3440189212) T PROTEIN (test code = 5.4 g/dL 6.3-8.2 L 6522188171) ALBUMIN (test code = 2.8 g/dL 3.5-5 L 9537270342) ALK PHOS (test code = 71 U/L 34-122 8207072999) ALTv (test code = 31 U/L 5-35 1742-6) AST(SGOT) (test code = 31 U/L 13-40 3192587554) eGFR Calculation mL/min/1.73m2 (Non-) (test code = 0495079626) eGFR Calculation mL/min/1.73m2 () (test code = 4104777268) RAUDEL (test code = RAUDEL) Association of [...] tests). Lab Interpretation Abnormal (test code = 37940-1) [facility]. METABOLIC PANEL (09783)2020-09-15 11:19:00 Test Item Value Reference Range Interpretation Comments NA (test code = 135 mmol/L 135-145 1012592805) K (test code = 3.9 mmol/L 3.5-5 3042208591) CL (test code = 104 mmol/L 98-108 3236591234) CO2 TOTAL (test code = 27 mmol/L 23-31 0361099847) AGAP (test code = 2-16 5713851380) BUN (test code = 15 mg/dL 7-23 9707318309) GLUCOSE (test code = 153 mg/dL 70-110 H 9506169359) CREATININE (test code = 0.91 mg/dL 0.5-1.04 3006613611) TOTAL BILI (test code = 0.4 mg/dL 0.1-1.4 0956908829) CALCIUM (test code = 9.2 mg/dL 8.6-10.6 6637980223) T PROTEIN (test code = 7.2 g/dL 6.3-8.2 0122545206) ALBUMIN (test code = 3.8 g/dL 3.5-5 7759946757) ALK PHOS (test code = 106 U/L 34-122 3726423347) ALTv (test code = 43 U/L 5-35 H 1742-6) AST(SGOT) (test code = 28 U/L 13-40 8802708066) eGFR Calculation mL/min/1.73m2 (Non-) (test code = 9944208167) eGFR Calculation mL/min/1.73m2 () (test code = 0536446052) RAUDEL (test code = RAUDEL) Association of [...] tests). Lab Interpretation Abnormal (test code = 09979-9) [facility] CenterHEPATIC FUNCTION PANEL (13704) (ALB,T.PRO,BILI T,BU/BC,ALT,AST,ALK PHOS)2020-09-14 19:50:00 Test Item Value Reference Range Interpretation Comments TOTAL BILI (test code = 7536543769) 0.5 mg/dL 0.1-1.1 BILI UNCON (test code = 6831195659) 0.4 mg/dL 0.1-1.1 BILI CONJ (test code = 4705664490) 0.0 mg/dL 0-0.3 T PROTEIN (test code = 3112150134) 6.5 g/dL 6.3-8.2 ALBUMIN (test code = 2453655730) 3.4 g/dL 3.5-5 L ALK PHOS (test code = 5373840033) 95 U/L 34-122 ALTv (test code = 1742-6) 45 U/L 5-35 H AST(SGOT) (test code = 4304654492) 31 U/L 13-40 Lab Interpretation (test code = Abnormal 04923-1) [facility] CenterCREATINE [id number] 18:49:00 Test Item Value Reference Range Interpretation Comments CK (test code = 3743392559) 44 U/L 33-194 Lab Interpretation (test code = Normal 94593-9) [facility] (NA, K, CL, CO2, GLUCOSE, BUN, CREATININE, CA)2020-09-14 17:05:00 Test Item Value Reference Range Interpretation Comments NA (test code = 136 mmol/L 135-145 6474789834) K (test code = 3.9 mmol/L 3.5-5 1683053836) CL (test code = 104 mmol/L 98-108 9350094365) CO2 TOTAL (test code = 27 mmol/L 23-31 5111479188) AGAP (test code = 2-16 0515454617) BUN (test code = 17 mg/dL 7-23 8213510766) GLUCOSE (test code = 114 mg/dL 70-110 H 1436672786) CREATININE (test code = 0.84 mg/dL 0.5-1.04 4226068109) CALCIUM (test code = 8.9 mg/dL 8.6-10.6 8334443128) eGFR Calculation mL/min/1.73m2 (Non-) (test code = 1742686848) eGFR Calculation mL/min/1.73m2 () (test code = 3192956592) RAUDEL (test code = RAUDEL) Association of [...] tests). Lab Interpretation Abnormal (test code = 14066-5) [facility] [id number] 16:44:00 Test Item Value Reference Range Interpretation Comments HBsAB (test code = Negative 2718713798) HBsAb mIU/mL Semi-Quantitative (test code = 6864480972) RAUDEL (test code = Interpretation: RAUDEL) ?Hepatitis B Surface Antibody ? Negative - Patient is considered to be not immune to infection with HBV. ? ? Positive - Anti-HBs detected at greater than or equal to 12 mIU/mL. ?Patient is considered to be immune to infection with HBV. ? [facility] [id number] 16:27:00 Test Item Value Reference Range Interpretation Comments HBsAg Semi-Quantitative (test code = Negative Negative 5195-3) [facility] CenterMAGNESIUM2020-10-31 04:05:00 Test Item Value Reference Range Interpretation Comments MAGNESIUM (test code = 8545270205) 1.6 mg/dL 1.7-2.4 L Lab Interpretation (test code = Abnormal 16256-0) [facility] CenterTROPONIN [id number] 20:02:00 Test Item Value Reference Range Interpretation Comments TROPONIN I (test <0.012 See_Comment [Automated code = 9153540169) message] The system which generated this result [...] ? Lab Interpretation Normal (test code = 59117-8) [facility]. METABOLIC PANEL (45968)2020-09-13 17:43:00 Test Item Value Reference Range Interpretation Comments NA (test code = 139 mmol/L 135-145 3174794954) K (test code = 4.5 mmol/L 3.5-5 4993447373) CL (test code = 99 mmol/L 98-108 9033298716) CO2 TOTAL (test code = 31 mmol/L 23-31 2470448655) AGAP (test code = 2-16 8950218053) BUN (test code = 14 mg/dL 7-23 2782841589) GLUCOSE (test code = 115 mg/dL 70-110 H 7076879554) CREATININE (test code = 1.31 mg/dL 0.5-1.04 H 8008931106) TOTAL BILI (test code = 1.4 mg/dL 0.1-1.1 H 9332913720) CALCIUM (test code = 10.6 mg/dL 8.6-10.6 7979743117) T PROTEIN (test code = 9.1 g/dL 6.3-8.2 H 4144158312) ALBUMIN (test code = 4.7 g/dL 3.5-5 0086102678) ALK PHOS (test code = 160 U/L 34-122 H 8652473585) ALTv (test code = 84 U/L 5-35 H 1742-6) AST(SGOT) (test code = 51 U/L 13-40 H 1032873873) eGFR Calculation mL/min/1.73m2 (Non-) (test code = 9035757613) eGFR Calculation mL/min/1.73m2 () (test code = 2048325369) RAUDEL (test code = RAUDEL) Association of [...] tests). Lab Interpretation Abnormal (test code = 76026-6) [facility] CenterLIPASE2020-10-30 17:43:00 Test Item Value Reference Range Interpretation Comments LIPASE (test code = 1863519747) 88 U/L 0-220 Lab Interpretation (test code = Normal 45416-1) [facility] CenterCB WITH [id number] 17:31:00 Test Item Value Reference Range Interpretation [...] RDW-SD (test code = 44.9 fL 39-49.9 45703-7) RDW-CV (test code = 12.9 % 12-15.5 788-0) PLT (test code = See_Comment H [Automated 777-3) message] The sy stem which generated this result transmitted reference range : 166 - 358 10*3/ ?L. The reference r madelin was not used to interpret this result as normal/abnormal . MPV (test code = 9.7 fL 9.5-12.9 57418-4) NRBC/100 WBC (test See_Comment [Automat ed code = 1770383065) message] The system which generated this result transmitted reference range : 0.0 - 10.0 /100 WBCs. The refer ence range was not u sed to interpret th is result as normal/abnormal . NRBC x10^3 (test code <0.01 See_Comment [Auto mated = 3504428364) message] The s ystem which generated this result transmitted reference range : 10*3/?L. The reference range was not used to interpret this result as normal/abnormal . GRAN MAT (NEUT) % 80.0 % (test code = 770-8) IMM GRAN % (test code 0.50 % = 9637940302) LYMPH % (test code = 10.4 % 736-9) MONO % (test code = 7.1 % 5905-5) EOS % (test code = 1.5 % 713-8) BASO % (test code = 0.5 % 706-2) GRAN MAT x10^3(ANC) 7.11 10*3/uL 1.88-7.09 H (test code = 8296684021) IMM GRAN x10^3 (test 0.04 10*3/uL 0-0.06 code = 8123772786) LYMPH x10^3 (test code 0.92 10*3/uL 1.32-3.29 L = 731-0) MONO x10^3 (test code 0.63 10*3/uL 0.33-0.92 = 742-7) EOS x10^3 (test code = 0.13 10*3/uL 0.03-0.39 711-2) BASO x10^3 (test code 0.04 10*3/uL 0.01-0.07 = 704-7) Lab Interpretation Abnormal (test code = 75092-6) [facility] CenterXR ABDOMEN 2 [id number] 17:08:57Overall, bowel gas pattern is felt to [...] appliance. [facility], Radiant Results Inft User - 09/13/2020 12:10 PM CDTXR ABDOMEN 2 VWHISTORY: abdominal pain and vomiting COMPARISON: None.TECHNIQUE: AP view of the abdomen and pelvisFINDINGS: Visualized lung bases are clear.Overall, bowel gas pattern is nonobstructive. There is relative paucity ofbowel gas within the mid abdomen bilaterally. Small amountof gas is seenwithin the epigastrium and left upper quadrant (gastric bubble). Loops ofbowel (some small bowel and possibly rectosigmoid) project over the pelvis.Right lower quadrant ostomy appliance.IMPRESSIONOverall, bowel gas pattern is felt to be nonobstructive with multiple loopsof bowel projecting over the pelvis.Ostomy appliance projects over the right lower quadrant.[facility]. METABOLIC PANEL (64210)2020-09-01 07:34:00 Test Item Value Reference Range Interpretation Comments NA (test code = 137 mmol/L 135-145 7302394040) K (test code = 3.6 mmol/L 3.5-5 9087756393) CL (test code = 100 mmol/L 98-108 5620384275) CO2 TOTAL (test code = 26 mmol/L 23-31 9818046121) AGAP (test code = 2-16 4694001067) BUN (test code = 19 mg/dL 7-23 7511285696) GLUCOSE (test code = 171 mg/dL 70-110 H 1502965627) CREATININE (test code = 0.98 mg/dL 0.5-1.04 0616246957) TOTAL BILI (test code = 0.8 mg/dL 0.1-1.7 6705492579) CALCIUM (test code = 10.4 mg/dL 8.6-10.6 4398327415) T PROTEIN (test code = 8.9 g/dL 6.3-8.2 H 2943425119) ALBUMIN (test code = 4.9 g/dL 3.5-5 8327477029) ALK PHOS (test code = 109 U/L 34-122 7521644434) ALTv (test code = 46 U/L 5-35 H 1742-6) AST(SGOT) (test code = 26 U/L 13-40 7219884229) eGFR Calculation mL/min/1.73m2 (Non-) (test code = 0855150006) eGFR Calculation mL/min/1.73m2 () (test code = 2928792149) RAUDEL (test code = RAUDEL) Association of [...] tests). Lab Interpretation Abnormal (test code = 90330-5) [facility] CenterLIPASE2020-10-18 07:34:00 Test Item Value Reference Range Interpretation Comments LIPASE (test code = 5392056425) 103 U/L 0-220 Lab Interpretation (test code = Normal 95926-2) [facility] CenterCB WITH [id number] 07:19:00 Test Item Value Reference Range Interpretation Comments WBC (test code = See_Comment [Automated 3260-2) message] The sy stem which generated this result transmitted reference range : 4.30 - 11.10 10*3/?L. The reference range was not used to interpret this result as normal/abnormal . RBC (test code = See_Comment [Automated 576-1) message] The sy stem which generated this [...] RDW-SD (test code = 40.4 fL 39-49.9 30790-3) RDW-CV (test code = 12.1 % 12-15.5 788-0) PLT (test code = See_Comment [Automated 777-3) message] The sy stem which generated this result transmitted reference range : 166 - 358 10*3/ ?L. The reference r madelin was not used to interpret this result as normal/abnormal . MPV (test code = 10.7 fL 9.5-12.9 73738-7) NRBC/100 WBC (test See_Comment [Automat ed code = 6616061941) message] The system which generated this result transmitted reference range : 0.0 - 10.0 /100 WBCs. The refer ence range was not u sed to interpret th is result as normal/abnormal . NRBC x10^3 (test code <0.01 See_Comment [Auto mated = 0832875038) message] The s ystem which generated this result transmitted reference range : 10*3/?L. The reference range was not used to interpret this result as normal/abnormal . GRAN MAT (NEUT) % 77.7 % (test code = 770-8) IMM GRAN % (test code 0.20 % = 8667811483) LYMPH % (test code = 18.3 % 736-9) MONO % (test code = 3.5 % 5905-5) EOS % (test code = 0.0 % 713-8) BASO % (test code = 0.3 % 706-2) GRAN MAT x10^3(ANC) 4.63 10*3/uL 1.88-7.09 (test code = 4891491677) IMM GRAN x10^3 (test <0.03 0-0.06 code = 1623441451) LYMPH x10^3 (test code 1.09 10*3/uL 1.32-3.29 L = 731-0) MONO x10^3 (test code 0.21 10*3/uL 0.33-0.92 L = 742-7) EOS x10^3 (test code = <0.03 0.03-0.39 L 711-2) BASO x10^3 (test code <0.03 0.01-0.07 = 704-7) Lab Interpretation Abnormal (test code = 43688-0) [facility] CenterL[facility]2020-[facility] 02:48:00 Test Item Value Reference Range Interpretation Comments LIPASE (test code = 5422488474) 171 U/L 0-220 Lab Interpretation (test code = Normal 08650-7) [facility] WITH [id number] 02:25:00 Test Item Value Reference Range Interpretation Comments WBC (test code = See_Comment [Automated message] 3634-2) The system Year Up generated this result transmitted ref erence range: 4.30 - 1 1.10 10*3/?L. The re ference range was not u sed to interpret this result as normal/abnor mal. RBC (test code = See_Comment [Automated message] 116-8) The system Year Up generated this result transmitted ref erence range: [...] RDW-SD (test code 42.3 fL 39-49.9 = 66435-8) RDW-CV (test code 12.1 % 12-15.5 = 788-0) PLT (test code = See_Comment [Automated message] 157-3) The system whic h generated this result transmitted ref erence range: 166 - 35 8 10*3/?L. The re ference range was not u sed to interpret this result as normal/abnor mal. MPV (test code = 11.0 fL 9.5-12.9 89019-4) NRBC/100 WBC (test See_Comment [Automat ed message] code = 5840901722) The syste m which generated this result transmitted ref erence range: 0.0 - 10 .0 /100 WBCs. The refer ence range was not u sed to interpret this result as normal/abnor mal. NRBC x10^3 (test <0.01 See_Comment [Automated message] code = 5763499278) The syste m which generated this result transmitted ref erence range: 10*3/?L. The reference range was not used to interpr et this result as normal/abnormal . GRAN MAT (NEUT) % 44.5 % (test code = 770-8) IMM GRAN % (test 0.20 % code = 6080558468) LYMPH % (test code 43.0 % = 736-9) MONO % (test code 9.5 % = 5905-5) EOS % (test code = 1.7 % 713-8) BASO % (test code 1.1 % = 706-2) GRAN MAT 2.35 10*3/uL 1.88-7.09 x10^3(ANC) (test code = 9521462905) IMM GRAN x10^3 <0.03 0-0.06 (test code = 7637639914) LYMPH x10^3 (test 2.27 10*3/uL 1.32-3.29 code = 731-0) MONO x10^3 (test 0.50 10*3/uL 0.33-0.92 code = 742-7) EOS x10^3 (test 0.09 10*3/uL 0.03-0.39 code = 711-2) BASO x10^3 (test 0.06 10*3/uL 0.01-0.07 code = 704-7) [facility] CenterCT [facility] W [id number] 03:50:29Addendum by Rhett Harden MD on 08/17/2020 11:01 PM* * * * * * * * ADDENDUM: * * * * * * * * The finding regarding left breast nodule was discussed with Dr MunozHrmovcty93/3/2020 10:53 PM Preliminary Report Dictated by Resident: Rhett Venegas ?MD Dereck., have reviewed this study and agree with [...] degree of distention. Correlatewith urinalysis. Left breast 1.1cm nodule. Correlate with ultrasound and/or mammography Preliminary Report Dictated by Resident: Rhett Venegas ?MD Dereck., have reviewed this study and agree with theabove report.EXAM: CT ABDOMEN PELVIS W CONTRAST HISTORY: Abd pain, acute, generalized s/p iLEOSTOMY WITH aBDOMINAL PAIN,nAUSEA/vOMITING 43-year-old female with Crohn's disease. COMPARISON: Abdominal CT-07/23/2020 DOSE: 334 mGy*cmTECHNIQUE AND FINDINGS: Contiguous axial imaging from the level of the lungbases through the proximal thighs was performed after the uncomplicatedadministration intravenous contrast. Coronal and sagittal reconstructionswere obtained. ?Auto mA and/or iterative reconstruction were used to reduceradiation dose. FINDINGS: LOWER THORAX: Left lower lobe subsegmental atelectasis. 1.1 cm right breast nodule ( 2:29 and 4:48). LIVER: No focal hepatic lesions. Normal contour. GALLBLADDER AND BILIARY TREE: No biliary ductal dilation. No radiopaquecholelithiasis. No gallbladder wall thickening. PANCREAS: No ductal dilation or masses. Evidence of pancreatic divisum. SPLEEN: No splenomegaly. ADRENAL GLANDS: No adrenal nodules. KIDNEYS: No hydronephrosis, stones, or masses. Kidneys enhancesymmetrically. PERITONEUM AND RETROPERITONEUM: No free air or fluid. Left paramedianventral hernia containing fat fluid levelwith peripheral enhancement(2:62). No significant surrounding fluid or [...] intravenous contrast. Coronal and sagittal reconstructionswere obtained. Auto mA and/or iterative reconstruction were used to reduceradiation dose.FINDINGS:LOWER THORAX: Left lower lobe subsegmental atelectasis.1.1cm right breast nodule (2:29 and 4:48).LIVER: No focal hepatic lesions. Normal contour.GALLBLADDER AND BILIARY TREE: No biliary ductal dilation. [...] throughout the mesentery are thought to be react pasha.VESSELS: Patent abdominal vasculature.GI TRACT: Postsurgical changes of [...] nature. Prominentdegenerative changes at bilateral hips.IMPRESSIONStatus post ileocece ctomy with right lower quadrant diverting ileostomy.Rectosigmoid colon wall thickening with mild mural hyperenhancement mayreflect active inflammatory bowel disease. Mild inflammatory changes can beseen elsewhere in the colon (to lesser extent). Correlate clinically.Ventral hernia containing fat and fluid faint peripheral enhancement.Sterility is unclear. However, there is no significant inflammatorychangein this region.Slightly thickened bladder wall for the degree of distention. Correlatewith urinalysis.Left breast 1.1 cm nodule. Correlate with ultrasound and/or mammographyPreliminary Report Dictated by Resident: Rhett Jacobs MD., have reviewed this study and agree with theabove report.[facility] CenterCOVID[facility] (ID NOW RAPID TESTING) 2020-08-18 01:55:00 Test Item Value Reference Range Interpretation Comments SARS-CoV-2 Rapid ID NOW Not Detected Not Detected (test code = 68504-8) RAUDEL (test code = RAUDEL) ID NOW COVID-19 Assay is an isothermal nucleic acid amplification test intended for the qualitative detection of nucleic acid from SARS-CoV-2 viral RNA in nasopharyngeal (DRIVER'S LICENSE REVIEWING OFFICER) specimens. It is used under Emergency Use [...] indicated. Lab Interpretation Normal (test code = 03199-9) [facility] CenterCOMP. METABOLIC PANEL (23139)2020-08-18 01:47:00 Test Item Value Reference Range Interpretation Comments NA (test code = 135 mmol/L 135-145 8483853393) K (test code = 4.1 mmol/L 3.5-5 0264314597) CL (test code = 96 mmol/L 98-108 L 9680822941) CO2 TOTAL (test code = 30 mmol/L 23-31 7988988000) AGAP (test code = 2-16 7412318499) BUN (test code = 17 mg/dL 7-23 7652767437) GLUCOSE (test code = 149 mg/dL 70-110 H 0007582392) CREATININE (test code = 1.21 mg/dL 0.5-1.04 H 5313360993) TOTAL BILI (test code = 0.7 mg/dL 0.1-1.8 4817490023) CALCIUM (test code = 10.5 mg/dL 8.6-10.6 9256056276) T PROTEIN (test code = 8.6 g/dL 6.3-8.2 H 2377437581) ALBUMIN (test code = 4.4 g/dL 3.5-5 8220421908) ALK PHOS (test code = 170 U/L 34-122 H 4530139727) ALTv (test code = 145 U/L 5-35 H 1742-6) AST(SGOT) (test code = 70 U/L 13-40 H 0668808311) eGFR Calculation mL/min/1.73m2 (Non-) (test code = 7415218785) eGFR Calculation mL/min/1.73m2 () (test code = 1165366781) RAUDEL (test code = RAUDEL) Association of [...] tests). Lab Interpretation Abnormal (test code = 23757-4) [facility]2020-[facility] 01:47:00 Test Item Value Reference Range Interpretation Comments LIPASE (test code = 1868372579) 172 U/L 0-220 Lab Interpretation (test code = Normal 71338-3) [facility]CB WITH [id number] 01:34:00 Test Item Value Reference Range Interpretation Comments WBC (test code = See_Comment [Automated 3790-2) message] The sy stem which generated this [...] RDW-SD (test code = 41.1 fL 39-49.9 90482-0) RDW-CV (test code = 11.8 % 12-15.5 L 788-0) PLT (test code = See_Comment [Automated 777-3) message] The sy stem which generated this result transmitted reference range : 166 - 358 10*3/ ?L. The reference r madelin was not used to interpret this result as normal/abnormal . MPV (test code = 10.4 fL 9.5-12.9 02035-1) NRBC/100 WBC (test See_Comment [Automat ed code = [id number]) message] The system which generated this result transmitted reference range : 0.0 - 10.0 /100 WBCs. The refer ence range was not u sed to interpret th is result as normal/abnormal . NRBC x10^3 (test code <0.01 See_Comment [Auto mated = [id number]) message] The s ystem which generated this result transmitted reference range : 10*3/?L. The reference range was not used to interpret this result as normal/abnormal . GRAN MAT (NEUT) % 50.9 % (test code = 770-8) IMM GRAN % (test code 0.40 % = 8729503926) LYMPH % (test code = 35.9 % 736-9) MONO % (test code = 9.9 % 5905-5) EOS % (test code = 2.2 % 713-8) BASO % (test code = 0.7 % 706-2) GRAN MAT x10^3(ANC) 2.31 10*3/uL 1.88-7.09 (test code = 1058772929) IMM GRAN x10^3 (test <0.03 0-0.06 code = 4101767235) LYMPH x10^3 (test code 1.63 10*3/uL 1.32-3.29 = 731-0) MONO x10^3 (test code 0.45 10*3/uL 0.33-0.92 = 742-7) EOS x10^3 (test code = 0.10 10*3/uL 0.03-0.39 711-2) BASO x10^3 (test code 0.03 10*3/uL 0.01-0.07 = 704-7) Lab Interpretation Abnormal (test code = 76060-1) [facility] WITH [id number] 10:12:00 Test Item Value Reference Range Interpretation [...] RDW-SD (test code = 45.2 fL 39-49.9 49339-0) RDW-CV (test code = 12.9 % 12-15.5 788-0) PLT (test code = See_Comment H [Automated 777-3) message] The sy stem which generated this result transmitted reference range : 166 - 358 10*3/ ?L. The reference r madelin was not used to interpret this result as normal/abnormal . MPV (test code = 9.8 fL 9.5-12.9 67172-5) NRBC/100 WBC (test See_Comment [Automat ed code = 1982889614) message] The system which generated this result transmitted reference range : 0.0 - 10.0 /100 WBCs. The refer ence range was not u sed to interpret th is result as normal/abnormal . NRBC x10^3 (test code <0.01 See_Comment [Auto mated = 0373316374) message] The s ystem which generated this result transmitted reference range : 10*3/?L. The reference range was not used to interpret this result as normal/abnormal . GRAN MAT (NEUT) % 64.8 % (test code = 770-8) IMM GRAN % (test code 2.10 % = 4606002580) LYMPH % (test code = 21.9 % 736-9) MONO % (test code = 9.0 % 5905-5) EOS % (test code = 1.9 % 713-8) BASO % (test code = 0.3 % 706-2) GRAN MAT x10^3(ANC) 8.61 10*3/uL 1.88-7.09 H (test code = 4099451169) IMM GRAN x10^3 (test 0.28 10*3/uL 0-0.06 H code = 1043383337) LYMPH x10^3 (test code 2.91 10*3/uL 1.32-3.29 = 731-0) MONO x10^3 (test code 1.20 10*3/uL 0.33-0.92 H = 742-7) EOS x10^3 (test code = 0.25 10*3/uL 0.03-0.39 711-2) BASO x10^3 (test code 0.04 10*3/uL 0.01-0.07 = 704-7) REACT LYMPHS (test Rare code = 3711245560) Lab Interpretation Abnormal (test code = 11096-5) [facility] (NA, K, CL, CO2, GLUCOSE, BUN, CREATININE, CA)2020-08-01 09:46:00 Test Item Value Reference Range Interpretation Comments NA (test code = 137 mmol/L 135-145 8309983643) K (test code = 4.0 mmol/L 3.5-5 5188458332) CL (test code = 100 mmol/L 98-108 6537794579) CO2 TOTAL (test code = 30 mmol/L 23-31 6292003981) AGAP (test code = 2-16 7537659406) BUN (test code = 5 mg/dL 7-23 L 7592603863) GLUCOSE (test code = 139 mg/dL 70-110 H 4404886005) CREATININE (test code = 0.73 mg/dL 0.5-1.04 9470951601) CALCIUM (test code = 9.3 mg/dL 8.6-10.6 0299996507) eGFR Calculation mL/min/1.73m2 (Non-) (test code = 4706534649) eGFR Calculation mL/min/1.73m2 () (test code = 7427145413) RAUDEL (test code = RAUDEL) Association of [...] tests). Lab Interpretation Abnormal (test code = 71516-0) [facility] 09[facility]46:00 Test Item Value Reference Range Interpretation Comments MAGNESIUM (test code = 4399015959) 1.9 mg/dL 1.7-2.4 Lab Interpretation (test code = Normal 79415-2) [facility] 09:46:00 Test Item Value Reference Range Interpretation Comments PHOSPHORUS (test code = 6828686255) 3.0 mg/dL 2.5-5 Lab Interpretation (test code = Normal 96050-3) [facility] [id number] 10:55:00 Test Item Value Reference Range Interpretation [...] RDW-SD (test code = 45.4 fL 39-49.9 18579-0) RDW-CV (test code = 12.8 % 12-15.5 788-0) PLT (test code = See_Comment H [Automated 777-3) message] The sy stem which generated this result transmitted reference range : 166 - 358 10*3/ ?L. The reference r madelin was not used to interpret this result as normal/abnormal . MPV (test code = 9.7 fL 9.5-12.9 27275-2) NRBC/100 WBC (test See_Comment [Automat ed code = 2783285815) message] The system which generated this result transmitted reference range : 0.0 - 10.0 /100 WBCs. The refer ence range was not u sed to interpret th is result as normal/abnormal . NRBC x10^3 (test code <0.01 See_Comment [Auto mated = 2374874483) message] The s ystem which generated this result transmitted reference range : 10*3/?L. The reference range was not used to interpret this result as normal/abnormal . GRAN MAT (NEUT) % 42.8 % (test code = 770-8) IMM GRAN % (test code 5.50 % = 4853200764) LYMPH % (test code = 36.7 % 736-9) MONO % (test code = 11.8 % 5905-5) EOS % (test code = 2.8 % 713-8) BASO % (test code = 0.4 % 706-2) GRAN MAT x10^3(ANC) 4.35 10*3/uL 1.88-7.09 (test code = 2752007491) IMM GRAN x10^3 (test 0.56 10*3/uL 0-0.06 H code = 8173533894) LYMPH x10^3 (test code 3.74 10*3/uL 1.32-3.29 H = 731-0) MONO x10^3 (test code 1.20 10*3/uL 0.33-0.92 H = 742-7) EOS x10^3 (test code = 0.29 10*3/uL 0.03-0.39 711-2) BASO x10^3 (test code 0.04 10*3/uL 0.01-0.07 = 704-7) REACT LYMPHS (test Rare code = 6494761660) Lab Interpretation Abnormal (test code = 63715-6) [facility] (NA, K, CL, CO2, GLUCOSE, BUN, CREATININE, CA)2020-07-31 10:50:00 Test Item Value Reference Range Interpretation Comments NA (test code = 135 mmol/L 135-145 3547974922) K (test code = 3.8 mmol/L 3.5-5 7232668297) CL (test code = 101 mmol/L 98-108 4176188391) CO2 TOTAL (test code = 27 mmol/L 23-31 4239351805) AGAP (test code = 2-16 4887587918) BUN (test code = 2 mg/dL 7-23 L 6384328872) GLUCOSE (test code = 132 mg/dL 70-110 H 1695944837) CREATININE (test code = 0.72 mg/dL 0.5-1.04 4034502293) CALCIUM (test code = 8.4 mg/dL 8.6-10.6 L 5367965302) eGFR Calculation mL/min/1.73m2 (Non-) (test code = 4020855072) eGFR Calculation mL/min/1.73m2 () (test code = 8642856079) RAUDEL (test code = RAUDEL) Association of [...] tests). Lab Interpretation Abnormal (test code = 12824-4) [facility] 10:50:00 Test Item Value Reference Range Interpretation Comments MAGNESIUM (test code = 5803668328) 1.2 mg/dL 1.7-2.4 L Lab Interpretation (test code = Abnormal 90503-1) [facility] 10:50:00 Test Item Value Reference Range Interpretation Comments PHOSPHORUS (test code = 3143854595) 3.8 mg/dL 2.5-5 Lab Interpretation (test code = Normal 06382-9) [facility] [id number] 15:48:00 Test Item Value Reference Range Interpretation Comments Case Report (test code Surgical Pathology ? ? = [id number]) ?Case: [id number] ? Authorizing Provider: ?Darren Chun MD ?Collected: ? 07/25/2020 1708 ?Ordering Location: ? ? [facility] OR ? Received: ?07/26/2020 0914 ? Department ? Pathologist: ? Deniz Joseph MD PHD ?Specimen: ? ?ABDOMEN, ILEOCECECTOMY ? Final Diagnosis (test w1baqLOqQCBau0vvVHJnxKF code = 0944101265) uZzEwMzNcZnRuYmpcdWMxIH frnwKxXOusm7FbX7YdWgNdO FxhbnNpXGRlZmxhbmcxMDMz YBH3voZpTZPlFAyoEOUmIMt jZk3pbNKkyDusJcYvSMWhg8 lpklGTicrfhUb3c8bzCCZoV vX0zWXcBCmoI1udexKyjXGv XEIjGUu3xV03SFRpwX9sdHH lPTzppnBlUjQ3AApxVHWqCs E5UPZhvZVfFMTjD8qpKHGxI OpaQQYlNMvqlVPpVNL4gRcz w7N2tXAlgBPevLwcHgGyBdY dKTRWw1JzJIp6dPoaO2OuMB EfQzP5tQHzPEOtPJshPIRoK VCytnK7rS36YWbpcvP1eUFc i3Bcf50jl904nD3ncQYoELW 7VBYeURLavGGoTBWiKPR8AO GjgYCrE2yfCBnpEX4yrerxZ TT8WTmuWEJrzJeeMVqwNPZx HrQjdSDiLGJbkTbnNSxos27 9EMB2RbBxIS2yH7Jyk7H6sK 9maXRcZGVmdGFiNzIwXGZvc c7ysQMvWBcaz9JqFIS6zcB5 xEBgoWCrUYAuOV77Vcwqj8A gBrbnMLQ0JDNimgAfq7Zas5 pmThNqarAtT9qsU1RiYLTeW EDtCAYyAtSowxTwb1Apl3Fm jDTaeAp3e8ciEBEkMDPrhGt yv2zzLQS0PDSlV5M8wSNib0 jmMZeiDRGmjZH6lmFwBQNkm AFwS3ZhmB4nKSabDN2yybq7 f8cxEfLwLC2mgyixa9auNCx rOLRkCCE6AeVvRLKua2Yenl pzCbVno8BkxLRuLIvuC38ic 327KKOmqxOxL6wngQRtzjle hHUfxbzsEBapnpM1TDPqTDT sYWluXGYxXGZzMjBcbGFuZz EwMzNcaGljaFxmMVxkYmNoX GNlOMkyK7zgOgNlSnTaZSzj ZFMhSY1sX15IVTocSF9WAER FJS3MHBOHPSLIAZQBEXINJR YOB5PNRVHYEULJU8ANNLGNS 92QSnwtMEJrEYViYZ6yM4XS TUVOVEFMIFNNQUxMIElOVEV TVElORSAgSVNDSEVNSUMgTk MDBe8JUXJnH9dITIHXTiOBY 28PGqLRIUkLSv4IFyKMRF1Z LCBccGFyICAgICAgICBTRUN CEsLQLgayPD2nQenFAo7ROV PrLGTJGAYAO20xZR9ANUDRB YwXUZMWZ5QUJM7GO1IFXXFE PE0BYJnvIKZsAMHqFQ9gW6I LRLRQMKJXQf9KQmDPA59LVD AXLE1ISKdKEUqzD3LWDQMVD 1NBTCBBTkQgVFJBTlNNVVJB BRBVAY4ALrLRFQqVWEkwAPJ wLGSwOF1pKk0hLNPHQBILY8 CyO2VmZMQGWYRGYRQSB0pOR 1MgRElTRUFTRVxwYXIgICAg MR7pP8EMS2sOXCxqYQIBR8o OUyBBUkUgVklBQkxFIFxwYX CxOQWhAE3lVc3sKEHLCRePR N8AVOZHABCDHBhSDETNVVPe ciAgICAgLSBBUFBFTkRJWCB ALNAQUKHEHf3WVIVJZdIgfN FyXHBhclxwbGFpblxmMVxmc gLfHZvkuuzbJLGcQAolK9yz RiCgZRKroJzgVMcqz1QfPME dIVCwFajhmaTgBDenSW66IS 1wPPO5VQQLUMXrVK0nPY9cZ DIwIFxwbGFpblxmMVxmczIw UMtmhwicKEIrQYnlZ7gnHhZ hEAEilFmvGGsps8OeYYXhFH ZzMjBccGFyfXtccnRmMVxzc 3DxI2AaKcOnGIncstIeWKMe RtfudarkKJCqEKC9clKyRYU rRVrcVQDyFAabTc9ftHHmrI waVcErCLVfa7berkSGYQozQ oYvL282QPGqRWouz7vyn1Pc BMPipBAdr7G5LUTKrkvulQg 5i5qeKrYwBzP6aDUmYLorW3 negcAbhARnW3GkjONpmGu5v GqzE40gu5L2YdogS8plHEMq MMQqR8FsNX5vKZHsMun2RWE 0XBW8KKDkAFUfG0RgKK2pYA DgdLAyZSn0a6gfsUidXCJpZ PQ1f0pbFAgullX7OD2qrm3a kBw7d1rpgsPqTXUfWLFhwWX FCJUdQ2DmpQhnLb5qtJc1zS oiNqisNCY3Hho9DW9jgu66c ur7lAenLDQhniifBvB5WOul FBQejfqyCJk0SMspBROhlWE 8GRZurVWaO4UdDMMbIA6yyv h3OGU0HOkhPAUtNfK3LRFtm QKdLPZglQexNNlze017JYK8 OaNfLX6iK5Tpw5S5jD3tiTU wOMJutLExAaCkEFUyfs1veM KbIAnna7UjZTQ9fhW4nASch JIxWKDtVS26Grtsr3YsRsgf CGP2SUDvwoCgh2Dgu2myUsB zotAcF8ibG1YwEIMcENVdXD BnSoWmdtQel0Lwu9EqmJOfb Xp6e1doGINdQDPrrPxbh5at EDR3EQVlH0T9uRIcq0uyWGw rWLVcbJN1wyR2ABVeuXIfS4 JscX4bFDUwMD6rhly7f8uuK DF6PGtrIDXjOdV1gmV0USMm mEWaPWPvsZtvWEeeo813GKP 2QwUuYJOjz9XcN0IdoZbtA3 3rxKnsM45oFCSncVojdV7qi YninX4pPeWxTyJuNKdfgKnf bGFpblxmMVxmczIwXGxhbmc aLRJpAXndP2cvEqNrLVKhkT teRZlpm0UkIMPySPTkMdcij zIwXHBhciBJIGhhdmUgcGVy k94dTTfekFOfSQVeQJerUHV pjLvoa5UqP0lzRC8sM2UavP SjgcOgasBiBOjyNPMnn3d0c LZsrCicd6AmeBMmJE02wdJl DEPeHWS8SMLhd3fcTJ27bcl hVmPovZ36smJqkaLpECRhd0 uwB2dovQNof7Wdp8KsodFtF Sicf0GfLL5yuSDwibvfvRO6 LMFtyNPoaaGuqbN3oRmzVKO kvI4flD8jwHazwM4tWpFbOn SiRUdiDE8pJCLlW4ljoXHuW TDuGLGaM9lzCiTznI5loFmg QlewpjM4EKQupj36 Clinical Information Crohn's 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 code = colon with complication 6648188630) [K50.119]SBO (small bowel obstruction) [K56.609] Gross Description k9exiLAoEQSxrRAiSdVbHNG (test code = gTTEdc9wwUXOygSAtCaOzLq 7146033965) NcZnRuYmpcdWMxXGRlZmYwe 4uro066iMNgw5pcAKBvLqO1 hCPgLYRtgYEpN083SFBkLUz ca2efv6AoHTUvcUNbk4B2DR HIkstuhXu2uOtvI72fc1I2G nmmY6olTOEoITRaJ6DzPR5v ECOhXcp7UKM9EII7BOJhFUB eD1ItLS0eEJYnqAEtWYz0e6 cppMmaZWTtWDN9j8utSUras jGjUS1pin7lkSy8f6kfngCa TBUgTQWgrWTMDOVzD9IsuNq sIp7zcYm0lRhmBdbnXAR0My a1RU3tvm79zka5sQlkZIZie rlqIaU9DJdaVWKywimfOHs2 XEjiEAIfkCLeRIAnkVAgY0Y gWSaeNJ3lpbx0JfRhWN1ses vkANpjIIUyCBE4SgIvOKXdl 6UfjuplKeTgdd7obl22AKE8 y9HxtYyvMKZ4EIO9FbZhXj1 xlJOyXBXoXB6qWnCteOIgST Oeet50lQycRAiityGhvF9uS rHtSLRziRYlJMVzIG1gaIUi UFPquY2jdrkyFDOvLzOtvjq rDONvbKbrlcCnKa0ivBkqOH K3LLfmZ1rxbI2kKwZ0LQagF 8bepQ7nXLf9VGvqsRV0CXXv fE6lNP9nxaooe5poBES3PKl yVOUurwB1inGtGRIjuULyT0 OseL79GjOrjLEzE1EsvM3oU GarEFFqtif4PrWoFy2cxYXz kII5KDesGtzpWGavTFHnupW vbnRccGduZGVjXHBsYWluXH BsYWluXGYwXGZzMjRccWxcc FgodY1sAlZvSyXzPVgkEV8j NIQlU3bykUYnQYRcVSEyD1x iKuFhpU4tqKmmNZfendYdYC NwZWNpbWVuIEEgaXMgcmVjZ Ii3WZUjyI8wTa2xoFUotD4l hEKwHNixZIH1qGYvORChENB uVXGlGP50S1CqlwQkULvhKR kgopEhJuOzRIKrJTNxt56pg qtfuNzbw0WqX4FgrS4voFCz JR2mUXBjjhRnd8QvDD7ePXW ox52rgLuaOg22HDaod1UrzC VudCAoNjYuOCBjbSBpbiBsZ C3zkLpnpLBdzNBkDVVvkxVy DI0zkZ3pYIUwh80sQx00CQ6 aLo5rFDFhLQH5cGGtVZO8sC QdpHJjFLEcwAHyYFm6RJu0M bgjJ39lnU1mpWAeY3XgYNcs VG98UPJaMFzkUCRtPS6prLP yKSBhbmQgcHJveGltYWwgY2 StkD4qWUZtSZWgVHKvu6Ysy LImqMTrKI4udZ5wmOYrqFZg EKEqIWAfZLU9oeHfwdN3MAA jWOBbGLCyGE1pgaRyAVfvEq DjszXkU1Fuq4IcmGOvaKbzd NAjCWRwrl20D9hmpCAukRKh fcViFV1ezXepr1k1iDP1iRY kcDNgLZNgJFTdsM3uEYTyd1 rpsNWeMQExDBRsxVR8VFqku BTiR0ztlr6mCDvvPUBsOTFc mJYkJNbaLG1iMD4qHWOvcdN qXO1vc8ZghXNoqJKhaZv3FI GwYQFcnsDdjVLoGC9uzzBnO CbkBfDhkN0txrBaMCLxdqPg bnRzIHdpdGggYSBkYXJrLWJ pu3yvRJLrWTK4KT4rIDUclJ Itk7MvGRK6EDLdO7Uvn6Pii TM0hBuzo55dq6GwBS4iMBMs JE3qXBngnbPmBZGmIC74oXV fkXonRKQmd4YqjTClqLBlQH FonQhnd0agCT4rAAEwEDMdN DAuMSBjbSBpbiBncmVhdGVz nLZopN8lurEwe59lCEiuP8O 5WJTpCTBrdJlkPCIvc6DloR CwiRC8aL7qLo5qtFMdJe5iP DCwq29jJOGoMAYtjo3zk4a2 YBppBF60dONyTRWdWDeyMVG ccGFyIFRoZSBhcHBlbmRpeC IhKXDrAX8xROU4IKWhTAEqd MRhoA04DSNjx5sdXSHqO2ax EHKdLBPhTDIxXV0soNmpHGB eAKK7RGMzEkLopHijRD3dXL VugLMqKATgqeubq68uu4KzP MJdbl2xBMY9rGHwYQXtFNCw CI6aOT35wECaAz1aZErqN60 yY8DriXobil3nRLazVQGumC CbONa1VImyKUIzmdiwuBm8K UTrT8Gmk24dLKO3mlMxEBQa PElgeUHtDDfncB5vVB2cvEF zA1Y0IQB0dmOjP5AvWUgklQ unGTKceW8rluOqvBEczM9ki CBkaWFtZXRlciAwLjIgLSAw SwQrO79aEYAgxQdpNBR1iTB wWBZth5adYDTfV4SmAK0sbP VyaWFsLiBXYWxsIHRoaWNrb yApniOoHT3iEVWrDbOqvRNx YvKlTUAsBjWjW06cZTQllGA ni2KnbSF6xOUdURGfR2Hzj4 8wOTEuIUJxtSVwyKZ3LDFfo T2nNHZmKZDySfywWJRyoYJx FQMfC8Psg33mK32rTXfztOB oNTUfMMSdVfAdmc46qR2bpC IxyMK2sCCsPFUdzW0wVESnD OOsC5MyoPCkOBVtIxFddKB7 IBkeI0XjYOfekASjU5haCRI xNLHySFJsfgTcxWs0JKflHE RxBWY7FQvhVR5yEHLsoIZ8O Mz6UCjojkNkzhLiWC64TIJb qyKhcNGrMJH5FbQkARNnMIX tfqNtwQg1DLQuMLB9vI1hgq XmXjD6BJghXHTbLBnhH7n2P CKxp3Lqg4gqZCWcg6z1qLYm zHAbOOD9UZR8ZbDmGFUoKSB qtgJbwUf0NKRkIEL6iM0rln NaQsW2HErvPNWsjFQqbAK1O EOyp3LrlVEmcPmxfDo2FWAy n04bpRAhsEvzTEzneE9hQMl aeJXhIHRwjeDXTHI4VUNjC0 Hrc15qFR9iUXTwlGRnBVz0U VLuBQtvJ8f1NTBpEJLgZR8c gWPhTUwrn1IwZrqhFWMkyN2 fFUHpXbg0ZIosLCDfeVQdq5 AoqWX1eQQxQMUzg5YbROTfO 0Mnx96oFFVnCEHqnmHjdqQm JspjBYJ8KGIlfUrvQDXyzrl jWUFgNy9iGA2eHWFeiKJrUD PVGLU5fOKavvBcQRLgrbYSZ WIsFW18vwvnaaTGXHYsEEY2 rE0bz5ger8BxAzZTo7Lji2U hbnQpXHBhcn0= Embedded Images (test code = 1863302644) [facility] METABOLIC PANEL (NA, K, CL, CO2, GLUCOSE, BUN, CREATININE, CA)2020-07-30 11:29:00 Test Item Value Reference Range Interpretation Comments NA (test code = 136 mmol/L 135-145 2905423128) K (test code = 3.8 mmol/L 3.5-5 Slight 2798627747) hemolysis CL (test code = 102 mmol/L 98-108 1111846859) CO2 TOTAL (test code 25 mmol/L 23-31 = 8746486811) AGAP (test code = 2-16 2811589350) BUN (test code = 2 mg/dL 7-23 L Slight 2704543153) hemolysis GLUCOSE (test code = 182 mg/dL 70-110 H 6156879677) CREATININE (test code 0.68 mg/dL 0.5-1.04 = 4022972574) CALCIUM (test code = 9.0 mg/dL 8.6-10.6 8264265377) eGFR Calculation mL/min/1.73m2 (Non-) (test code = 7388078021) eGFR Calculation mL/min/1.73m2 () (test code = 4742594948) RAUDEL (test code = RAUDEL) Association of [...] tests). Lab Interpretation Abnormal (test code = 41905-2) [facility] 11:29:00 Test Item Value Reference Range Interpretation Comments MAGNESIUM (test code = 9786841115) 1.4 mg/dL 1.7-2.4 L Lab Interpretation (test code = Abnormal 43931-0) [facility] 11:29:00 Test Item Value Reference Range Interpretation Comments PHOSPHORUS (test code = 6718017839) 3.6 mg/dL 2.5-5 Lab Interpretation (test code = Normal 77045-5) [facility] [id number] 14:01:19EXAM: XR KUB 07/29/2020 4:42 AM. 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 TECHNIQUE: Frontal radiographs of the abdomen and pelvis, ?4 images. FINDINGS: The tip of a surgical drain projects over right hemipelvis. A dilated loop of the small santy l projects over the LLQ, 4.9 cm, suspiciousfor incomplete small bowel obstruction. A long row of vertical surgical sutures lies to the left of the spine. Preliminary Report Dictated by Resident: Axel I reviewed this study and agree with minor modifications (no call needed tothe referring александр ervin). I, Shahriar Lozano MD., have reviewed this study and agree with theabove report.[facility],Radiant Results Inft User - 07/29/2020 9:02 AM CDTEXAM: XR KUB 07/29/2020 4:42 AM. INDICATION: 44 [...] Sanchez reviewed this study and agree with minor modifications (no call needed tothe referring physician).I, Shahriar Lozano MD., have reviewed this study and agree with theabove report.[facility] (NA, K, CL, CO2, GLUCOSE, BUN, CREATININE, CA)2020-07-29 12:26:00 Test Item Value Reference Range Interpretation Comments NA (test code = 137 mmol/L 135-145 0870201144) K (test code = 3.4 mmol/L 3.5-5 L 0677529017) CL (test code = 102 mmol/L 98-108 7530236026) CO2 TOTAL (test code = 31 mmol/L 23-31 7754242461) AGAP (test code = 2-16 1706020432) BUN (test code = 3 mg/dL 7-23 L 0897102396) GLUCOSE (test code = 118 mg/dL 70-110 H 4600095787) CREATININE (test code = 0.81 mg/dL 0.5-1.04 9732338735) CALCIUM (test code = 9.4 mg/dL 8.6-10.6 4015419599) eGFR Calculation mL/min/1.73m2 (Non-) (test code = 2422193942) eGFR Calculation mL/min/1.73m2 () (test code = 8095551588) RAUDEL (test code = RAUDEL) Association of [...] tests). Lab Interpretation Abnormal (test code = 18666-3) [facility] Test Item Value Reference Range Interpretation Comments Fibrinogen (test code = 1089 mg/dL 167-453 H 6346341759) Lab Interpretation (test code = Abnormal 87651-0) [facility] Test Item Value Reference Range Interpretation Comments APTT Patient (test code = See_Comment [ Automated message] 3173-2) The system [employer] generated this result transmitted ref erence range: 26 - 36 Seconds. The re ference range was not u sed to interpret this result as normal/abnor mal. Lab Interpretation (test Normal code = 29577-9) [facility] [id number] 10:58:00 Test Item Value Reference Range Interpretation Comments PROTIME PATIENT (test See_Comment [Auto mated message] code = 5964-2) The system [employer] generated this result transmitted ref erence range: 10.1 - 1 2.6 Seconds. The re ference range was not u sed to interpret this result as normal/abnor mal. INR (test code = 6301-6) Nor mal INR <1.1; Warfarin Therap eutic range 2.0 to 3. 0 or 2.5 to 3.5, dep ending upon the indica tions. Lab Interpretation (test Normal code = 04102-4) [facility] WITHOUT [id number] 10:54:00 Test Item Value Reference Range Interpretation Comments WBC (test code = 6690-2) See_Comment [A utomated message] The system [employer] generated this result transmit carl reference range : 4.30 - 11.10 10*3/?L. The reference range was not used to interpret this result as normal/abnormal . RBC (test code = 789-8) See_Comment L [Au tomated message] The system [employer] generated this result transmit carl reference range [...] 777-3) See_Comment [Au tomated message] The system [employer] generated this result transmit carl reference range : 166 - 358 10*3/?L. The reference range was not used to interpret this result as normal/abnormal . MPV (test code = 10.0 fL 9.5-12.9 61202-1) RDW-CV (test code = 12.0 % 12-15.5 788-0) RDW-SD (test code = 43.2 fL 39-49.9 58690-2) NRBC x10^3 (test code = <0.01 See_Comment [Au tomated message] 9936037177) The system [employer] generated this result transmit carl reference range : 10*3/?L. The reference range was not used to interpret this result as normal/abnormal . NRBC/100 WBC (test code See_Comment [Au tomated message] = 4025465329) The system [employer] generated this result transmit carl reference range : 0.0 - 10.0 /100 WBC s. The reference r madelin was not used to interpret this result as normal/abnormal . IPF % (test code = 7294919449) Lab Interpretation (test Abnormal code = 65457-0) [facility] CULTURE [id number] 22:01:00 Test Item Value Reference Range Interpretation Comments Blood Culture-Aerobic No organisms No growth Previo us (test code = 00675-7) isolated prelim inary verified result was Culture [...] Culture-Anaerobic isolated preliminar y (test code = 14997-9) verifi ed result was Culture In Progress [...] CDT Lab Interpretation Normal (test code = 34525-8) [facility] CULTURE [id number] 22:01:00 Test Item Value Reference Range Interpretation Comments Blood Culture-Aerobic No organisms No growth Previo us (test code = 12402-7) isolated prelim inary verified result was Culture [...] Culture-Anaerobic isolated preliminar y (test code = 32777-5) verifi ed result was Culture In Progress [...] CDT Lab Interpretation Normal (test code = 51755-6) [facility] METABOLIC PANEL (NA, K, CL, CO2, GLUCOSE, BUN, CREATININE, CA)2020-07-28 12:34:00 Test Item Value Reference Range Interpretation Comments NA (test code = 135 mmol/L 135-145 0359984297) K (test code = 3.6 mmol/L 3.5-5 3649543797) CL (test code = 105 mmol/L 98-108 4987677180) CO2 TOTAL (test code = 24 mmol/L 23-31 7022705029) AGAP (test code = 2-16 6286496057) BUN (test code = 3 mg/dL 7-23 L 2504806084) GLUCOSE (test code = 132 mg/dL 70-110 H 6883971125) CREATININE (test code = 0.68 mg/dL 0.5-1.04 5655902296) CALCIUM (test code = 8.6 mg/dL 8.6-10.6 0239943611) eGFR Calculation mL/min/1.73m2 (Non-) (test code = 6341558808) eGFR Calculation mL/min/1.73m2 () (test code = 3372744929) RAUDEL (test code = RAUDEL) Association of [...] tests). Lab Interpretation Abnormal (test code = 43069-2) [facility] WITHOUT [id number] 10:46:00 Test Item Value Reference Range Interpretation Comments WBC (test code = 6690-2) See_Comment [A utomated message] The system [employer] generated this result transmit carl reference range : 4.30 - 11.10 10*3/?L. The reference range was not used to interpret this result as normal/abnormal . RBC (test code = 789-8) See_Comment L [Au tomated message] The system [employer] generated this result transmit carl reference range [...] 777-3) See_Comment [Au tomated message] The system [employer] generated this result transmit carl reference range : 166 - 358 10*3/?L. The reference range was not used to interpret this result as normal/abnormal . MPV (test code = 10.0 fL 9.5-12.9 42256-3) RDW-CV (test code = 12.0 % 12-15.5 788-0) RDW-SD (test code = 42.5 fL 39-49.9 18353-2) NRBC x10^3 (test code = <0.01 See_Comment [Au tomated message] 4523796521) The system [employer] generated this result transmit carl reference range : 10*3/?L. The reference range was not used to interpret this result as normal/abnormal . NRBC/100 WBC (test code See_Comment [Au tomated message] = 0797770736) The system [employer] generated this result transmit carl reference range : 0.0 - 10.0 /100 WBC s. The reference r madelin was not used to interpret this result as normal/abnormal . IPF % (test code = 0870957913) Lab Interpretation (test Abnormal code = 14473-8) [facility] METABOLIC PANEL (NA, K, CL, CO2, GLUCOSE, BUN, CREATININE, CA)2020-07-27 11:40:00 Test Item Value Reference Range Interpretation Comments NA (test code = 134 mmol/L 135-145 L 7231771753) K (test code = 3.7 mmol/L 3.5-5 7075126181) CL (test code = 104 mmol/L 98-108 2245987344) CO2 TOTAL (test code = 29 mmol/L 23-31 9447335044) AGAP (test code = 2-16 L 0253519622) BUN (test code = 7 mg/dL 7-23 4768389642) GLUCOSE (test code = 169 mg/dL 70-110 H 5286222185) CREATININE (test code = 0.63 mg/dL 0.5-1.04 8219456529) CALCIUM (test code = 8.3 mg/dL 8.6-10.6 L 3560099310) eGFR Calculation mL/min/1.73m2 (Non-) (test code = 3442557319) eGFR Calculation mL/min/1.73m2 () (test code = 6703522261) RAUDEL (test code = RAUDEL) Association of [...] tests). Lab Interpretation Abnormal (test code = 10926-3) [facility] WITHOUT [id number] 11:18:00 Test Item Value Reference Range Interpretation Comments WBC (test code = 6690-2) See_Comment H [A utomated message] The system [employer] generated this result transmit carl reference range : 4.30 - 11.10 10*3/?L. The reference range was not used to interpret this result as normal/abnormal . RBC (test code = 789-8) See_Comment L [Au tomated message] The system [employer] generated this result transmit carl reference range : 3.93 - 5.25 10* 6/?L. The reference r madlein was not used to interpret this result [...] 777-3) See_Comment [Au tomated message] The system [employer] generated this result transmit carl reference range : 166 - 358 10*3/?L. The reference range was not used to interpret this result as normal/abnormal . MPV (test code = 10.8 fL 9.5-12.9 59800-2) RDW-CV (test code = 11.9 % 12-15.5 L 788-0) RDW-SD (test code = 43.5 fL 39-49.9 53657-3) NRBC x10^3 (test code = <0.01 See_Comment [Au tomated message] 0997062563) The system [employer] generated this result transmit carl reference range : 10*3/?L. The reference range was not used to interpret this result as normal/abnormal . NRBC/100 WBC (test code See_Comment [Au tomated message] = 7738029179) The system [employer] generated this result transmit carl reference range : 0.0 - 10.0 /100 WBC s. The reference r madelin was not used to interpret this result as normal/abnormal . IPF % (test code = 8796329995) Lab Interpretation (test Abnormal code = 16374-8) [facility] METABOLIC PANEL (NA, K, CL, CO2, GLUCOSE, BUN, CREATININE, CA)2020-07-26 09:39:00 Test Item Value Reference Range Interpretation Comments NA (test code = 136 mmol/L 135-145 7165220635) K (test code = 3.9 mmol/L 3.5-5 8147221710) CL (test code = 104 mmol/L 98-108 8192144067) CO2 TOTAL (test code = 28 mmol/L 23-31 3949382645) AGAP (test code = 2-16 2534655386) BUN (test code = 11 mg/dL 7-23 6584555113) GLUCOSE (test code = 136 mg/dL 70-110 H 0574251040) CREATININE (test code = 0.84 mg/dL 0.5-1.04 9804772482) CALCIUM (test code = 8.2 mg/dL 8.6-10.6 L 2348710707) eGFR Calculation mL/min/1.73m2 (Non-) (test code = 2575659385) eGFR Calculation mL/min/1.73m2 () (test code = 7492244966) RAUDEL (test code = RAUDEL) Association of [...] tests). Lab Interpretation Abnormal (test code = 36054-5) [facility] WITHOUT [id number] 08:44:00 Test Item Value Reference Range Interpretation Comments WBC (test code = 6690-2) See_Comment [A utomated message] The system [employer] generated this result transmit carl reference range : 4.30 - 11.10 10*3/?L. The reference range was not used to interpret this result as normal/abnormal . RBC (test code = 789-8) See_Comment L [Au tomated message] The system [employer] generated this result transmit carl reference range [...] See_Comment L [Au tomated message] The system [employer] generated this result transmit carl reference range : 166 - 358 10*3/?L. The reference range was not used to interpret this result as normal/abnormal . MPV (test code = 11.0 fL 9.5-12.9 30566-2) RDW-CV (test code = 11.8 % 12-15.5 L 788-0) RDW-SD (test code = 42.4 fL 39-49.9 74054-6) NRBC x10^3 (test code = <0.01 See_Comment [Au tomated message] 1938563255) The system [employer] generated this result transmit carl reference range : 10*3/?L. The reference range was not used to interpret this result as normal/abnormal . NRBC/100 WBC (test code See_Comment [Au tomated message] = 8936117105) The system [facility] generated this result transmit carl reference range : 0.0 - 10.0 /100 WBC s. The reference r madelin was not used to interpret this result as normal/abnormal . IPF % (test code = 0792316757) Lab Interpretation (test Abnormal code = 83106-0) [facility] METABOLIC PANEL (NA, K, CL, CO2, GLUCOSE, BUN, CREATININE, CA)2020-07-26 00:48:00 Test Item Value Reference Range Interpretation Comments NA (test code = 137 mmol/L 135-145 8761862895) K (test code = 4.5 mmol/L 3.5-5 5696052983) CL (test code = 102 mmol/L 98-108 6314715496) CO2 TOTAL (test code = 28 mmol/L 23-31 5839239918) AGAP (test code = 2-16 5104626139) BUN (test code = 13 mg/dL 7-23 6730294074) GLUCOSE (test code = 165 mg/dL 70-110 H 5891862576) CREATININE (test code = 0.92 mg/dL 0.5-1.04 6244288938) CALCIUM (test code = 8.5 mg/dL 8.6-10.6 L 6519718075) eGFR Calculation mL/min/1.73m2 (Non-) (test code = 1268040541) eGFR Calculation mL/min/1.73m2 () (test code = 6880773200) RAUDEL (test code = RAUDEL) Association of [...] tests). Lab Interpretation Abnormal (test code = 88189-4) [facility] Test Item Value Reference Range Interpretation Comments MAGNESIUM (test code = 1933282450) 1.5 mg/dL 1.7-2.4 L Lab Interpretation (test code = Abnormal 81825-0) [facility] CenterPROTHROMBIN TIME / [id number] 00:29:00 Test Item Value Reference Range Interpretation Comments PROTIME PATIENT (test See_Comment H [Auto mated message] code = 5964-2) The system [employer] generated this result transmitted ref erence range: 10.1 - 1 2.6 Seconds. The reference range was not used to int erpret this result as normal/abnormal . INR (test code = 6301-6) Nor mal INR <1.1; Warfarin Therap eutic range 2.0 to 3. 0 or 2.5 to 3.5, dep ending upon the indica tions. Lab Interpretation (test Abnormal code = 81813-4) [facility] CenteraPTT[facility] 00:29:00 Test Item Value Reference Range Interpretation Comments APTT Patient (test code = See_Comment [ Automated message] 3173-2) The system [employer] generated this result transmitted ref erence range: 26 - 36 Seconds. The re ference range was not u sed to interpret this result as normal/abnor mal. Lab Interpretation (test Normal code = 91104-6) [facility] CenterCBC WITHOUT [id number] 00:24:00 Test Item Value Reference Range Interpretation Comments WBC (test code = 6690-2) See_Comment H [A utomated message] The system [employer] generated this result transmit carl reference range : 4.30 - 11.10 10*3/?L. The reference range was not used to interpret this result as normal/abnormal . RBC (test code = 789-8) See_Comment L [Au tomated message] The system [employer] generated this result transmit carl reference range [...] 777-3) See_Comment [Au tomated message] The system [employer] generated this result transmit carl reference range : 166 - 358 10*3/?L. The reference range was not used to interpret this result as normal/abnormal . MPV (test code = 10.8 fL 9.5-12.9 42312-7) RDW-CV (test code = 12.0 % 12-15.5 788-0) RDW-SD (test code = 44.0 fL 39-49.9 79122-6) NRBC x10^3 (test code = <0.01 See_Comment [Au tomated message] 8483939842) The system [employer] generated this result transmit carl reference range : 10*3/?L. The reference range was not used to interpret this result as normal/abnormal . NRBC/100 WBC (test code See_Comment [Au tomated message] = 0688982565) The system [employer] generated this result transmit carl reference range : 0.0 - 10.0 /100 WBC s. The reference r madelin was not used to interpret this result as normal/abnormal . IPF % (test code = 8123085692) Lab Interpretation (test Abnormal code = 37374-2) [facility] METABOLIC PANEL (NA, K, CL, CO2, GLUCOSE, BUN, CREATININE, CA)2020-07-25 12:05:00 Test Item Value Reference Range Interpretation Comments NA (test code = 137 mmol/L 135-145 2471609518) K (test code = 4.0 mmol/L 3.5-5 0839608961) CL (test code = 104 mmol/L 98-108 3325431245) CO2 TOTAL (test code = 28 mmol/L 23-31 6125431891) AGAP (test code = 2-16 7354676852) BUN (test code = 13 mg/dL 7-23 8477924475) GLUCOSE (test code = 207 mg/dL 70-110 H 2086478447) CREATININE (test code = 0.79 mg/dL 0.5-1.04 3797296347) CALCIUM (test code = 8.5 mg/dL 8.6-10.6 L 9650588269) eGFR Calculation mL/min/1.73m2 (Non-) (test code = 7856140605) eGFR Calculation mL/min/1.73m2 () (test code = 5243884247) RAUDEL (test code = RAUDEL) Association of [...] tests). Lab Interpretation Abnormal (test code = 87242-8) [facility] WITHOUT [id number] 12:02:00 Test Item Value Reference Range Interpretation Comments WBC (test code = 6690-2) See_Comment H [A utomated message] The system [employer] generated this result transmit carl reference range : 4.30 - 11.10 10*3/?L. The reference range was not used to interpret this result as normal/abnormal . RBC (test code = 789-8) See_Comment L [Au tomated message] The system [employer] generated this result transmit carl reference range : 3.93 - 5.25 10* 6/?L. The reference r mdaelin was not used to interpret this result as normal/abnormal . HGB (test code = 718-7) 12.0 g/dL 11.6-15 HCT (test code = 4544-3) 35.6 % 35.7-45.2 L MCH (test code = 785-6) 32.7 pg 25.9-32.8 MCV (test code = 787-2) 97.0 fL 80.6-95.5 H MCHC (test code = 786-4) 33.7 g/dL 31.6-35.1 PLT (test code = 777-3) See_Comment [Au tomated message] The system [employer] generated this result transmit carl reference range : 166 - 358 10*3/?L. The reference range was not used to interpret this result as normal/abnormal . MPV (test code = 10.9 fL 9.5-12.9 68386-8) RDW-CV (test code = 12.1 % 12-15.5 788-0) RDW-SD (test code = 43.3 fL 39-49.9 85788-3) NRBC x10^3 (test code = <0.01 See_Comment [Au tomated message] 0574479273) The system [employer] generated this result transmit carl reference range : 10*3/?L. The reference range was not used to interpret this result as normal/abnormal . NRBC/100 WBC (test code See_Comment [Au tomated message] = 5882454465) The system [facility] generated this result transmit carl reference range : 0.0 - 10.0 /100 WBC s. The reference r madelin was not used to interpret this result as normal/abnormal . IPF % (test code = 8285487857) Lab Interpretation (test Abnormal code = 08613-1) [facility] CenterABORH [id number] 08:01:35 Test Item Value Reference Range Interpretation Comments ABO & RH (test code A Positive Performe d at [facility] = 20) Laboratory Serv [facility] [address]Gyao Free: [phone] A No. [id number] [facility] CenterType and Screen - ONCE [id number] 05:04:45 Test Item Value Reference Range Interpretation Comments ABO & RH (test code A POSITIVE Performe d at [facility] = 20) Laboratory Serv [facility] [address]Jwum Free: [phone] A No. [id number] IAT (test code = Negative Performed a t [facility] 1185) Laboratory [facility] [address]Yaot Free: [phone] A No. [id number] [facility] CenterXR [facility]BDOMEN 1 [id number] 13:39:15EXAM: XR ABDOMEN 1 VW 07/24/2020 1:46 AM. INDICATION: 44 years-old Female, with NGt placement COMPARISON: CT abdomen, 07/23/2020 TECHNIQUE: Frontal radiograph of the abdomen and pelvis.FINDINGS: The tip ofthe NGT is at the gastric fundus, with the sidehole projectingover the EG junction. Multiple dilatedsmall bowel loops in the left upper quadrant areredemonstrated. Preliminary Report Dictated by Resident: Neda John I reviewed this study and agree. IShahriar MD., have reviewed this study and agree with theabove report.[facility], Radiant Results Inft User - 07/24/2020 8:40 AM CDTEXAM: XR ABDOMEN 1 VW 07/24/2020 1:46 AM. INDICATION: 44 years-old Female, with NGt placement COMPARISON: CT a bdomen, 07/23/2020TECHNIQUE: Frontal radiograph of the abdomen and pelvis.FINDINGS:The tip of the NGT is at the gastric fundus, with the sidehole projectingover the EG junction.Multiple dilated small bowel loops in the left upper quadrant areredemonstrated. Preliminary Report Dictated by Resident: Neda Sanchez reviewed this study and agree.IShahriar MD., have reviewed this study and agree with theabove report.[facility] METABOLIC PANEL (NA, K, CL, CO2, GLUCOSE, BUN, CREATININE, CA)2020-07-24 08:29:00 Test Item Value Reference Range Interpretation Comments NA (test code = 137 mmol/L 135-145 3122485417) K (test code = 4.1 mmol/L 3.5-5 Slight 6456162703) hemolysis CL (test code = 102 mmol/L 98-108 8156272705) CO2 TOTAL (test code 24 mmol/L 23-31 = 3859079169) AGAP (test code = 2-16 2222951079) BUN (test code = 19 mg/dL 7-23 Slight 1328634621) hemolysis GLUCOSE (test code = 170 mg/dL 70-110 H 8596734522) CREATININE (test code 0.93 mg/dL 0.5-1.04 = 1456586070) CALCIUM (test code = 8.9 mg/dL 8.6-10.6 7048290809) eGFR Calculation mL/min/1.73m2 (Non-) (test code = 7084279726) eGFR Calculation mL/min/1.73m2 () (test code = 7672772591) RAUDEL (test code = RAUDEL) Association of [...] tests). Lab Interpretation Abnormal (test code = 76904-7) [facility] WITHOUT [id number] 08:27:00 Test Item Value Reference Range Interpretation Comments WBC (test code = See_Comment H [Automated message] 6690-2) The system [employer] generated this result transmitted ref erence range: 4.30 - 1 1.10 10*3/?L. The reference range was not used to int erpret this result as normal/abnormal . RBC (test code = 789-8) See_Comment [Au tomated message] The system [employer] generated this result transmitted ref erence range: [...] 777-3) See_Comment [Au tomated message] The system [employer] generated this result transmitted ref erence range: 166 - 35 8 10*3/?L. The reference range was not used to int erpret this result as normal/abnormal . MPV (test code = 11.0 fL 9.5-12.9 82467-3) RDW-CV (test code = 12.0 % 12-15.5 788-0) RDW-SD (test code = 41.5 fL 39-49.9 28018-9) NRBC x10^3 (test code = <0.01 See_Comment [Au tomated message] 0022747713) The system [employer] generated this result transmitted ref erence range: 10*3/?L. The reference range was not used to int erpret this result as normal/abnormal . NRBC/100 WBC (test code See_Comment [Au tomated message] = 0358795681) The system [employer] generated this result transmitted ref erence range: 0.0 - 10 .0 /100 WBCs. The reference range was not used to int erpret this result as normal/abnormal . IPF % (test code = 5.7 % 1.3-7.7 Platelet count 3567210261) measured by fluorescence me thod. Lab Interpretation Abnormal (test code = 64405-2) [facility] CenterCOVID-19 (ID NOW RAPID TESTING)2020-07-24 01:08:00 Test Item Value Reference Range Interpretation Comments SARS-CoV-2 Rapid ID NOW Not Detected Not Detected (test code = 58208-6) RADUEL (test code = RAUDEL) ID NOW COVID-19 Assay is an isothermal nucleic acid amplification test intended for the qualitative detection of nucleic acid from SARS-CoV-2 viral RNA in nasopharyngeal (DRIVER'S LICENSE REVIEWING OFFICER) specimens. It is used under Emergency Use [...] indicated. Lab Interpretation Normal (test code = 31123-2) [facility] CenterLactic Acid Whole [id number] 00:34:00 Test Item Value Reference Range Interpretation Comments LACTIC ACID (test code = 3.03 mmol/L 6122341588) [facility] CenterLactic Acid Whole [id number] 21:59:00 Test Item Value Reference Range Interpretation Comments LACTIC ACID (test code = 2.30 mmol/L 0206304701) [facility] CenterCT ABDOMEN PELVIS W [id number] 21:22:06CT Abdomen and Pelvis with intravenous contrast. CLINICAL HISTORY: Abdominal pain. Rule out appendicitis. DOSE: Up-to-date CT equipment and radiation dose reduction techniques wereemployed. CTDIvol: 5.43 mGy. DLP: 257 mGy-cm. TECHNIQUE : Contiguous axial imaging from the level of the lung basesthroughthe pubic symphysis were performed after the uncomplicatedadministration of Omnipaque contrast material. Coronal and sagittalreconstructions were obtained. Auto mA and/or iterative reconstruction wereused to reduce radiation dose. FINDINGS: Comparison is made with 08/18/2019 study. Lower lungs: Clear. No pleural effusion or pericardial effusion. Probableshort sliding hiatal hernia. Liver, Gallbladder and Spleen: No calcified gallstones. Liver is 12.4 cmand spleen is 7.5 x 2.5 cm in size. Biliary ducts and the pancreatic ductappear of normal size. Peritoneum: ?No free air. Free fluid noted surrounding intestines, spleen,minimal around the liver and in the cul-de-sac.Small lymph nodes are seen in theright lower quadrant of the abdomen. Pancreas and [...] Some of the bowel loops proximal to theedematousileum with distended with gas. Appendix is not visualized,however, findings are not suggestive of acute appendicitis. Bladder and Reproductive Organs: S/P hysterectomy. Grossly unremarkableunopacified and incompletely distended urinary bladder. Bones: Mild bilateral hip joint arthritis. No aggressive bone lesions. Nocompression deformity in the lower thoracic or lumbar vertebral bodies. Soft tissues:Unremarkable. CONCLUSION:1. Abnormal findings involving some of the [...] and/or iterative reconstruction wereused to reduce radiation dose.FINDINGS: Comparison is made with 08/18/2019 study.Lower lungs: Clear. No pleural effusion or pericardial effusion. Probableshort sliding hiatal hernia.Liver, Gallbladder and Spleen: No calcified gallstones. Liver is 12.4 cmand spleen is 7.5 x 2.5 cm in size. Biliary ducts a nd the pancreatic ductappear of normal size.Peritoneum: No free air. Free fluid noted surrounding intestines, spleen,minimal around the liver and in the cul-de-sac.Small lymph nodes are seen in the right lower quadrant of the abdomen.Pancreas and Adrenals: Unremarkable pancreas and adrenal glands.Kidneys and Ureters: No visible calculi in the renal collecting systems. No hydroureter or hydronephrosis. Vessels: Normal.Retroperitoneum: No abnormal fluid or lymphadenopathy.Bowel: Several ileal loops are dilated up to 3.5 cm with submucosal edema,congestion of the surrounding mesentery and small amountof fluidsurrounding abnormal bowel loops. Some of the bowel loops proximal to theedematous ileum with distended with gas. Appendix is not visualized,however, findings are not suggestive of acute appendicitis.Bladder and Reproductive Organs: S/P hysterectomy. Grossly unremarkableunopacified and incompletely distended urinary bladder.Bones: Mild bilateral hip joint arthritis. No aggressive bone lesions. Nocompression deformity in the lower thoracic or lumbar vertebral bodies.Soft tissues: Unremarkable.CONCLUSION:1. Abnormal findings involving some of the distal ileal loops, with freefluid is seen in the lower abdomen and surrounding spleen. No freeintraperitoneal air. Etiology is unclear given the history of Crohn'sdisease but could be acute flareup of Crohn's disease. Involved loops ofbowel showedpoor contrast enhancement of the mucosa without any definiteCT signs of bowel infarction. Possibility of small bowel obstruction cannotbe excluded.2. Appendix is not visualized, however, findings are not suggestive ofacute appendicitis.[facility] Metabolic Panel (NA, K, CL, CO2, GLUCOSE, BUN, CREATININE, CA)2020-07-23 20:11:00 Test Item Value Reference Range Interpretation Comments NA (test code = 137 mmol/L 135-145 6960461889) K (test code = 3.3 mmol/L 3.5-5 L 2839576093) CL (test code = 97 mmol/L 98-108 L 7079848580) CO2 TOTAL (test code = 25 mmol/L 23-31 1645270430) AGAP (test code = 2-16 7100625567) BUN (test code = 18 mg/dL 7-23 8159585349) GLUCOSE (test code = 236 mg/dL 70-110 H 3390983518) CREATININE (test code = 0.94 mg/dL 0.5-1.04 3886832481) CALCIUM (test code = 10.4 mg/dL 8.6-10.6 9105885661) eGFR Calculation mL/min/1.73m2 (Non-) (test code = 7186081373) eGFR Calculation mL/min/1.73m2 () (test code = 9880719554) RAUDEL (test code = RAUDEL) Association of [...] tests). Lab Interpretation Abnormal (test code = 39593-3) [facility] CenterHepatic Function Panel (ALB, T.PRO, BILI T, BU/BC, ALT, AST, ALK PHOS)2020-07-23 20:11:00 Test Item Value Reference Range Interpretation Comments TOTAL BILI (test code = 5795092660) 1.0 mg/dL 0.1-1.1 BILI UNCON (test code = 8208769206) 1.0 mg/dL 0.1-1.1 BILI CONJ (test code = 2912065648) 0.0 mg/dL 0-0.3 T PROTEIN (test code = 0376963447) 8.9 g/dL 6.3-8.2 H ALBUMIN (test code = 3491330628) 4.7 g/dL 3.5-5 ALK PHOS (test code = 8772329483) 77 U/L 34-122 ALTv (test code = 1742-6) 19 U/L 5-35 AST(SGOT) (test code = 0413011721) 24 U/L 13-40 Lab Interpretation (test code = Abnormal 21569-1) [facility] CenterLipase [id number] 20:11:00 Test Item Value Reference Range Interpretation Comments LIPASE (test code = 4349894378) 26 U/L 0-220 Lab Interpretation (test code = Normal 28492-2) [facility] with [id number] 19:48:00 Test Item Value Reference Range Interpretation Comments WBC (test code = See_Comment H [Automated 6690-2) message] The system which generated this result transmit carl reference range : 4.30 - 11.10 10*3/?L. The reference range was not used to interpret this result as normal/abnormal . RBC (test code = See_Comment H [Automated 789-8) message] The system which generated this result [...] RDW-SD (test code = 39.7 fL 39-49.9 28805-8) RDW-CV (test code = 11.5 % 12-15.5 L 788-0) PLT (test code = See_Comment [Automated 777-3) message] The system which generated this result transmit carl reference range : 166 - 358 10*3/ ?L. The reference range was not u sed to interpret th is result as normal/abnormal . MPV (test code = 10.4 fL 9.5-12.9 44418-5) NRBC/100 WBC (test See_Comment [Automat ed code = 3458660360) message] The system which generated this result transmit carl reference range : 0.0 - 10.0 /100 WBCs. The reference range was not used to interpret this result as normal/abnormal . NRBC x10^3 (test code <0.01 See_Comment [Auto mated = 1647378399) message] The system which generated this result transmit carl reference range : 10*3/?L. The reference range was not used to interpret this result as normal/abnormal . GRAN MAT (NEUT) % 90.3 % (test code = 770-8) IMM GRAN % (test code 0.50 % = 2276241754) LYMPH % (test code = 5.4 % 736-9) MONO % (test code = 3.7 % 5905-5) EOS % (test code = 0.0 % 713-8) BASO % (test code = 0.1 % 706-2) GRAN MAT x10^3(ANC) 12.67 10*3/uL 1.88-7.09 H (test code = 7322733487) IMM GRAN x10^3 (test 0.07 10*3/uL 0-0.06 H code = 6456467575) LYMPH x10^3 (test code 0.76 10*3/uL 1.32-3.29 L = 731-0) MONO x10^3 (test code 0.52 10*3/uL 0.33-0.92 = 742-7) EOS x10^3 (test code = <0.03 0.03-0.39 L 711-2) BASO x10^3 (test code <0.03 0.01-0.07 = 704-7) Lab Interpretation Abnormal (test code = 57584-5) [facility] CenterUrinalysis2020-09-08 19:37:00 Test Item Value Reference Range Interpretation Comments APPEARANCE (test code = Hazy Clear A 1363826560) COLOR (test code = Kathleen Yellow A 0053938927) PH (test code = 4.8-8.0 2354496217) SP GRAVITY (test code = 1.003-1.030 H 7530567196) GLU U QUAL (test code = 50 mg/dL Normal A 2871785985) BLOOD (test code = Negative Negative 2550552818) KETONES (test code = 80 mg/dL Negative A 3423983678) PROTEIN (test code = 100 mg/dL Negative A 2887-8) UROBILIN (test code = Normal Normal 0377998239) BILIRUBIN (test code = Negative Negative 3477575050) NITRITE (test code = Negative Negative 4806937405) LEUK CHELY (test code = Negative Negative 8411254458) RBC/HPF (test code = See_Comment [Autom ated message] 4131740423) The system [employer] generated this result transmit carl reference range : 0 - 3 HPF. The refe rence range was not u sed to interpret th is result as normal/abnormal . WBC/HPF (test code = See_Comment [Autom ated message] 8489859403) The system [employer] generated this result transmit carl reference range : 0 - 5 HPF. The refe rence range was not u sed to interpret th is result as normal/abnormal . BACTERIA (test code = Few Negative A 4547306133) MUCOUS (test code = Marked Negative LPF A 9822651769) SQ EPITH (test code = HPF 0810281070) Lab Interpretation (test Abnormal code = 60824-7) [facility] CenterCT [facility]OMEN PELVIS W [id number] 18:53:08CT Abdomen and Pelvis with intravenous contrast. [...] of the liver near falciform ligament, unchanged sinceFeuary 2018 study. No other liver lesions. No lesions [...] Abdomen and Pelvis with intravenous contrast.CLINICAL HISTORY: Acute generalized abdominal pain with nausea.TECHNIQUE: Multidetector helical CT acquisition were obtained withintravenous injection Omnipaque 350 nonionic contrast medium. Sagittal andcoronal reformations were generated.FINDINGS: Comparison is made with 01/04/2018 CT studies.Lower lungs: Clear. No pleural effusion or pericardial effusion.Liver, Gallbladder and Spleen: 2.3 cm area of decreased attenuation notedin the left lobe of the liver near falciform ligament, unchanged sinceFebruary 2018 study. No other liver lesions. No lesions in the spleen. Nocalcified gallstones. Biliary ducts and the pancreatic duct appeared to beof normal size.Liver measures approximately 15.5 cm in length andspleen is 9 x 3.5 cm.Peritoneum: No free [...] lumbar vertebral bodies.Soft tissues: Unremarkable.CONCLUSION: No acute intra-abdominal or intrapelvic pathology detected.[facility] (NA, K, CL, CO2, GLUCOSE, BUN, CREATININE, CA)2019-06-15 18:17:00 Test Item Value Reference Range Interpretation Comments NA (test code = 140 mmol/L 135-145 8176073649) K (test code = 3.5 mmol/L 3.5-5 2462697989) CL (test code = 105 mmol/L 98-108 6700202950) CO2 TOTAL (test code = 25 mmol/L 23-31 1077050995) AGAP (test code = 2-16 6364451776) BUN (test code = 10 mg/dL 7-23 2366812915) GLUCOSE (test code = 162 mg/dL 70-110 H 6778440061) CREATININE (test code = 0.81 mg/dL 0.5-1.04 1951081462) CALCIUM (test code = 8.7 mg/dL 8.6-10.6 9914094047) eGFR Calculation mL/min/1.73m2 (Non-) (test code = 8769907937) eGFR Calculation mL/min/1.73m2 () (test code = 5522033502) RAUDEL (test code = RAUDEL) Association of [...] tests). Lab Interpretation Abnormal (test code = 08482-9) [facility] (ALB, T.PRO, BILI T, BU/BC, ALT, AST, ALK PHOS)2019-06-15 18:17:00 Test Item Value Reference Range Interpretation Comments TOTAL BILI (test code = 4194146062) 0.7 mg/dL 0.1-1.1 BILI UNCON (test code = 1839058284) 0.6 mg/dL 0.1-1.1 BILI CONJ (test code = 9770597413) 0.0 mg/dL 0-0.3 T PROTEIN (test code = 6061235759) 7.7 g/dL 6.3-8.2 ALBUMIN (test code = 5326960230) 4.2 g/dL 3.5-5 ALK PHOS (test code = 8927871252) 59 U/L 34-122 ALT(SGPT) (test code = 7726457560) 16 U/L 9-51 AST(SGOT) (test code = 6183468007) 20 U/L 13-40 Lab Interpretation (test code = Normal 98389-8) [facility] CenterLip[facility] [id number] 18:17:00 Test Item Value Reference Range Interpretation Comments LIPASE (test code = 3126140789) 48 U/L 0-220 Lab Interpretation (test code = Normal 49434-9) [facility]inalysis2019-08-01 18:06:00 Test Item Value Reference Range Interpretation Comments APPEARANCE (test code Slightly Hazy Clear A = 8441028463) COLOR (test code = Yellow Yellow 0513117087) PH (test code = 4.8-8.0 4655940671) SP GRAVITY (test code >=1.030 1.003-1.030 = 3237088418) GLU U QUAL (test code Negative Negative = 1908354440) BLOOD (test code = Negative Negative 4444851000) KETONES (test code = Negative Negative 6910353749) PROTEIN (test code = Negative Negative 2887-8) UROBILIN (test code = 0.2 mg/dL See_Comment [Auto mated 6441052109) message] The system which generated this result transmit carl reference range : 0-1.0 mg/dL. Th e reference range was not used to interpret this result as normal/abnormal . BILIRUBIN (test code = Negative Negative 9126806949) NITRITE (test code = Negative Negative 0343938986) LEUK CHELY (test code Negative Negative = 7838290697) RBC/HPF (test code = See_Comment [Autom ated 0874685847) message] The system which generated this result transmit carl reference range : 0 - 3 HPF. The reference range was not used to interpret this result as normal/abnormal . WBC/HPF (test code = See_Comment [Autom ated 6470864302) message] The system which generated this result transmit carl reference range : 0 - 5 HPF. The reference range was not used to interpret this result as normal/abnormal . BACTERIA (test code = Moderate Negative A 1279959604) MUCOUS (test code = Moderate Negative LPF A 1647509587) SQ EPITH (test code = HPF 2867760752) CA OXALATE (test code See_Comment H [Auto mated = 1273574765) message] The system which generated this result transmit carl reference range : <=1 HPF. The reference range was not used to interpret this result as normal/abnormal . Lab Interpretation Abnormal (test code = 72270-3) [facility] CenterL[facility] Acid Whole [id number] 17:57:00 Test Item Value Reference Range Interpretation Comments LACTIC ACID (test code = 1.94 mmol/L 0.5-2.2 2966279117) Lab Interpretation (test code = Normal 49913-8) [facility] CenterCB WITH [id number] 17:56:00 Test Item Value Reference Range Interpretation [...] RDW-SD (test code = 41.2 fL 39-49.9 28301-9) RDW-CV (test code = 11.7 % 12-15.5 L 788-0) PLT (test code = See_Comment [Automated 777-3) message] The sy stem which generated this result transmitted reference range : 166 - 358 10*3/ ?L. The reference r madelin was not used to interpret this result as normal/abnormal . MPV (test code = 10.0 fL 9.5-12.9 51819-8) NRBC/100 WBC (test See_Comment [Automat ed code = 0237638723) message] The system which generated this result transmitted reference range : 0.0 - 10.0 /100 WBCs. The refer ence range was not u sed to interpret th is result as normal/abnormal . NRBC x10^3 (test code <0.01 See_Comment [Auto mated = 1018545538) message] The s ystem which generated this result transmitted reference range : 10*3/?L. The reference range was not used to interpret this result as normal/abnormal . GRAN MAT (NEUT) % 72.9 % (test code = 770-8) IMM GRAN % (test code 0.10 % = 6900776861) LYMPH % (test code = 21.6 % 736-9) MONO % (test code = 4.3 % 5905-5) EOS % (test code = 0.7 % 713-8) BASO % (test code = 0.4 % 706-2) GRAN MAT x10^3(ANC) 4.88 10*3/uL 1.88-7.09 (test code = 7791783313) IMM GRAN x10^3 (test <0.03 0-0.06 code = 4930180607) LYMPH x10^3 (test code 1.45 10*3/uL 1.32-3.29 = 731-0) MONO x10^3 (test code 0.29 10*3/uL 0.33-0.92 L = 742-7) EOS x10^3 (test code = 0.05 10*3/uL 0.03-0.39 711-2) BASO x10^3 (test code 0.03 10*3/uL 0.01-0.07 = 704-7) Lab Interpretation Abnormal (test code = 70661-3) [facility] CenterPOND Test, [id number] 17:24:00 Test Item Value Reference Range Interpretation Comments POCT PREG (test code = 1605) negative On board controls acceptable with present C Line (test code = 3574) POCT PREG LOT # (test code = 3575) [id number] POCT PREG TEST DATE (test 11/14/20 code = 3576) Lab Interpretation (test code = Normal 22055-4) [facility]"
[2022-07-11] MEDS ORDERED: PROMETHAZINE INJ 25 MG/ML AMP ONE (22:15)
[2022-07-11] MEDS ORDERED: DIPHENHYDRAMINE 50 MG/ML VIAL ONE (22:15)
[2022-07-11] MEDS ORDERED: METHYLPREDNISOLONE 125 MG INJ ONE (22:15)
[2022-07-11] MEDS ORDERED: PANTOPRAZOLE 40 MG INJ ONE (22:16)
[2022-07-11] MEDS ORDERED: NA CHLORIDE 0.9% 1,000 ML ONE (22:16)
[2022-07-11] MEDS ORDERED: HYDROMORPHONE HCL 2 MG/ML inj ONE (22:16)
[2022-07-11 22:18] LABS: Absolute Lymphocytes (CBC) 1.8 K/uL (0.7-4.9); Hematocrit 49.2 % (36.0-45.0); Lymphocytes % 38.5 % (15.3-44.8); MCV 92.8 fL (80-100); MPV 8.5 fL (7.6-11.3)
[2022-07-11 22:45] LABS: Albumin 4.2 g/dL (3.4-5.0); Potassium 3.1 mmol/L (3.5-5.1); Protein, Total 10.1 g/dL (6.4-8.2)
[2022-07-11] MEDS ORDERED: POTASSIUM 25 MEQ EFFERV TAB ONE (23:59)
[2022-07-12] MEDS ORDERED: PROMETHAZINE INJ 25 MG/ML AMP ONE (00:05)
[2022-07-12] MEDS ORDERED: HYDROMORPHONE HCL 2 MG/ML inj ONE (03:10)
--- NOTE | 2022-07-12 04:20 | ER ---
Nurse's Notes [facility] Name: Jessica Stearns Age: 46 yrs Sex: Female : 1975 Arrival Date: 07/11/2022 Time: 21:09 Bed 14 Private MD: Diagnosis: Abdominal pain, Generalized;Vomiting;Acute gastritis;Acute gastritis without bleeding;SARS-associated coronavirus as the cause of diseases classified elsewhere Presentation: 07/11 21:13 Chief complaint: N/V/D, abdominal pain, productive cough. chills, headache, generalized hb weakness, and intermittent fever x 2 days. Not tolerating fluids/meds. TMAX 101. Coronavirus screen: At this time, the client does not indicate any symptoms associated with coronavirus-19. Ebola Screen: No symptoms or risks identified at this time. Initial Sepsis Screen: Does the patient meet any 2 criteria? No. Patient's initial sepsis screen is negative. Does the patient have a suspected source of infection? No. Patient's initial sepsis screen is negative. Risk Assessment: Do you want to hurt yourself or someone else? Patient reports no desire to harm self or others. Onset of symptoms was July 10, 2022. 21:13 Method Of Arrival: Wheelchair hb 21:13 Acuity: EVELIA 3 hb Historical: - Allergies: 21:15 Bentyl; hb 21:15 Butalbital Compound; hb 21:15 Demerol; hb 21:15 Fentanyl; hb 21:15 Ketorolac; hb 21:15 Morphine; hb 21:15 Reglan; hb 21:15 Sulfa (Sulfonamide Antibiotics); hb 21:15 Talwin; hb 21:15 Toradol; hb 21:15 Zofran; hb - PMHx: 21:15 Crohn's; gastritis; ibs; hb - PSHx: 21:15 Appendectomy; colon resection; Colostomy and reversal; hb - Immunization history:: Adult Immunizations up to date, Client reports having NOT received the Covid vaccine. - Social history:: Smoking status: Patient reports the use of cigarette tobacco products, denies chronic smoking, but will smoke occasionally. Screenin:30 Abuse screen: Denies threats or abuse. Nutritional screening: No deficits noted. jb4 Tuberculosis screening: No symptoms or risk factors identified. Fall Risk None identified. Assessment: 21:30 General: Appears in no apparent distress. uncomfortable, Behavior is calm, cooperative, jb4 appropriate for age. Pain: Complains of pain in abdomen Pain does not radiate. Pain currently is 10 out of 10 on a pain scale. Neuro: Level of Consciousness is awake, alert, obeys commands, Oriented to person, place, time, situation. Cardiovascular: Patient's skin is warm and dry. Respiratory: Airway is patent Respiratory effort is even, unlabored, Respiratory pattern is regular, symmetrical. GI: Abdomen is flat, non-distended, Bowel sounds present X 4 quads. Abd is soft X 4 quads Abdomen is tender to palpation X 4 quads. Reports lower abdominal pain, upper abdominal pain, diarrhea, nausea, vomiting. Derm: Skin is intact, Skin is dry, Skin is normal, Skin temperature is warm. Musculoskeletal: Circulation, motion, and sensation intact. Range of motion: intact in all extremities. 22:34 Reassessment: Patient appears in no apparent distress at this time. Patient and/or jb4 family updated on plan of care and expected duration. Pain level reassessed. Patient is alert, oriented x 3, equal unlabored respirations, skin warm/dry/pink. 07/12 00:02 Reassessment: Patient appears in no apparent distress at this time. Patient and/or jb4 family updated on plan of care and expected duration. Pain level reassessed. Patient is alert, oriented x 3, equal unlabored respirations, skin warm/dry/pink. 00:56 Reassessment: Patient appears in no apparent distress at this time. Patient and/or jb4 family updated on plan of care and expected duration. Pain level reassessed. Patient is alert, oriented x 3, equal unlabored respirations, skin warm/dry/pink. 01:05 Reassessment: Pt requesting pain medication, abdominal CT and chest x-ray. Provider jb4 notified. 04:26 Reassessment: Patient appears in no apparent distress at this time. Patient and/or ha1 family updated on plan of care and expected duration. Pain level reassessed. Patient is alert, oriented x 3, equal unlabored respirations, skin warm/dry/pink. Vital Signs: 07/11 21:13 BP 104 / 90; Pulse 124; Resp 18; Temp 98.8(TE); Pulse Ox 100% on R/A; Weight 58.06 kg; hb Height 5 ft. 7 in. (170.18 cm); Pain 10/10; 22:25 BP 142 / 94; Pulse 101; Resp 18; Pulse Ox 99% on R/A; jb4 07/12 00:02 BP 131 / 91; Pulse 98; Resp 16; Pulse Ox 100% on R/A; jb4 00:56 BP 126 / 84; Pulse 89; Resp 16; Pulse Ox 99% on R/A; jb4 03:04 BP 120 / 80; Pulse 87; Resp 17 S; Pulse Ox 99% on R/A; Pain 9/10; ha1 03:35 BP 121 / 80; Pulse 85; Resp 16 S; Pulse Ox 99% on R/A; Pain 3/10; ha1 04:32 BP 111 / 74; Pulse 86; Resp 17 S; Pulse Ox 98% on R/A; Pain 4/10; ha1 07/11 21:13 Body Mass Index 20.05 (58.06 kg, 170.18 cm) hb ED Course: 07/11 21:09 Patient arrived in ED. ja2 21:09 Dc Steve MD is Attending Physician. kdr 21:15 Triage completed. hb 21:15 Arm band placed on. hb 21:22 Kenton Garcia, ZARA is Primary Nurse. jb4 21:30 Patient has correct armband on for positive identification. Bed in low position. Call jb4 light in reach. Side rails up X 1. Client placed on continuous cardiac and pulse oximetry monitoring. NIBP monitoring applied. 22:10 Initial lab(s) drawn, by ne, sent to lab. Inserted saline lock: 18 gauge in left upper bb arm, using aseptic technique. Blood collected. 07/12 01:03 Report given to ZARA Holliday. ZARA Guzman. jb4 01:37 CXR XRAY In Process Unspecified. EDMS 02:50 Abdomen In Process Unspecified. EDMS 04:44 No provider procedures requiring assistance completed. IV discontinued, intact, ha1 bleeding controlled, No redness/swelling at site. Pressure dressing applied. Administered Medications: 07/10 23:57 Drug: Phenergan (promethazine) 12.5 mg Route: IVP; Site: left upper arm; jb4 07/12 00:58 Follow up: Response: No adverse reaction; Marked relief of symptoms; Pain is decreased jb4 07/11 22:13 Drug: NS 0.9% 1000 ml Route: IV; Rate: 1 bolus; Site: left upper arm; jb4 23:02 Follow up: Response: No adverse reaction; IV Status: Completed infusion; IV Intake: jb4 1000ml 22:15 Drug: ProTONIX (pantoprazole) 40 mg Route: IVP; Site: left upper arm; jb4 23:02 Follow up: Response: No adverse reaction jb4 22:17 Drug: SOLU-Medrol (methylPrednisoLONE) 125 mg Route: IVP; Site: left upper arm; jb4 23:02 Follow up: Response: No adverse reaction jb4 22:19 Drug: Benadryl (diphenhydrAMINE) 25 mg Route: IVP; Site: left upper arm; jb4 23:02 Follow up: Response: No adverse reaction; Marked relief of symptoms jb4 22:21 Drug: Phenergan (promethazine) 12.5 mg Route: IVP; Site: left upper arm; jb4 23:02 Follow up: Response: No adverse reaction; Marked relief of symptoms jb4 22:24 Drug: Dilaudid (HYDROmorphone) 2 mg Route: IVP; Site: left upper arm; jb4 23:02 Follow up: Response: No adverse reaction; Marked relief of symptoms; Pain is decreased jb4 23:52 Drug: Potassium Effervescent Tablet 50 mEq Route: PO; jb4 07/12 00:01 Follow up: Response: No adverse reaction jb4 02:58 Not Given (Other Intervention Used): Dilaudid (HYDROmorphone) 2 mg IVP once; Place in lg3 100 cc and infuse oer 30 minutes 03:05 Drug: Dilaudid (HYDROmorphone) 2 mg Route: IM; Site: right ventrogluteal; ha1 03:35 Follow up: Response: No adverse reaction; Pain is decreased; RASS: Alert and Calm (0) ha1 Medication: 07/11 22:25 VIS not applicable for this client. jb4 Intake: 23:02 IV: 1000ml; Total: 1000ml. jb4 Outcome: 07/12 04:20 Discharge ordered by . kdr 04:44 Discharged to home via wheelchair. ha1 04:44 Condition: stable 04:44 Discharge instructions given to patient, Instructed on discharge instructions, follow up and referral plans. medication usage, Demonstrated understanding of instructions, follow-up care, medications, Prescriptions given X 3. 04:47 Patient left the ED. ha1 Signatures: Dispatcher [employer] EDMS Dc Steve MD MD [facility] Anila Andrade RN RN Erica Seymour RN RN Kenton Garcia RN RN jb4 Roxana King 2 Lilian Sanchez RN RN ha1 Miya Cramer RN lg3 Corrections: (The following items were deleted from the chart) 07/11 21:17 21:13 BP 104 / 90; Pulse 100bpm; Resp 18bpm; Pulse Ox 100% RA; Temp 98.8F Temporal; hb 58.06 kg; Height 5 ft. 7 in.; BMI: 20.0; Pain 10/10; hb 07/12 00:56 07/11 21:30 GI: Abdomen is flat, non-distended, Reports lower abdominal pain, upper jb4 abdominal pain, diarrhea, nausea, vomiting, [facility] 07/12 00:59 07/11 22:17 SOLU-Medrol (methylPrednisoLONE) 125 mg IVP in left antecubital [place] [address] 07/12 00:59 07/11 22:15 ProTONIX (pantoprazole) 40 mg IVP in left antecubital [place] [address] 07/12 00:59 07/11 22:13 NS 0.9% 1000 ml IV at 1 bolus in left antecubital [place] [address] 07/12 00:59 07/10 23:57 Phenergan (promethazine) 12.5 mg IVP in left antecubital [place] [address] 07/12 01:00 07/11 22:21 Phenergan (promethazine) 12.5 mg IVP in left antecubital 4 [facility] 07/12 01:00 07/11 22:24 Dilaudid (HYDROmorphone) 2 mg IVP in left antecubital [place] [address] 07/12 01:00 07/11 22:19 Benadryl (diphenhydrAMINE) 25 mg IVP in left antecubital [place] [address] 07/12 04:28 03:17 Response: No adverse reaction; Pain is decreased; RASS: Alert and Calm (0) ha1 ha1
--- NOTE | 2022-07-12 04:20 | EDPHYS ---
Physician Documentation [facility] Name: Jessica Stearns Age: 46 yrs Sex: Female : 1975 Arrival Date: 07/11/2022 Time: 21:09 Bed 14 Private MD: ED Physician Dc Steve HPI: 07/12 01:11 This 46 yrs old Black Female presents to ER via Wheelchair with complaints of Abdominal kdr Pain, Nausea/Vomiting, Cough. 01:11 Patient complains of abdominal pain including nausea, vomiting and diarrhea/loose kdr stools for the last 2 days. She has a history of Crohn's and this is similar to her prior Crohn's flares. She is also been generally weak has had a headache and had has had chills as well. She states that she currently is unable to take fluids or medications and that her temperature has been as high as 101.0.. Onset: The symptoms/episode began/occurred gradually, 2 day(s) ago. Severity of symptoms: At their worst the symptoms were mild moderate just prior to arrival, in the emergency department the symptoms are unchanged. The patient has not experienced similar symptoms in the past. The patient has not recently seen a physician. Historical: - Allergies: 07/11 21:15 Bentyl; hb 21:15 Butalbital Compound; hb 21:15 Demerol; hb 21:15 Fentanyl; hb 21:15 Ketorolac; hb 21:15 Morphine; hb 21:15 Reglan; hb 21:15 Sulfa (Sulfonamide Antibiotics); hb 21:15 Talwin; hb 21:15 Toradol; hb 21:15 Zofran; hb - PMHx: 21:15 Crohn's; gastritis; ibs; hb - PSHx: 21:15 Appendectomy; colon resection; Colostomy and reversal; hb - Immunization history:: Adult Immunizations up to date, Client reports having NOT received the Covid vaccine. - Social history:: Smoking status: Patient reports the use of cigarette tobacco products, denies chronic smoking, but will smoke occasionally. ROS: 07/12 01:11 Constitutional: Negative for fever, chills, and weight loss, Eyes: Negative for injury, kdr pain, redness, and discharge, ENT: Negative for injury, pain, and discharge, Neck: Negative for injury, pain, and swelling, Cardiovascular: Negative for chest pain, palpitations, and edema, Respiratory: Negative for shortness of breath, cough, wheezing, and pleuritic chest pain, Back: Negative for injury and pain, : Negative for injury, bleeding, discharge, and swelling, MS/Extremity: Negative for injury and deformity, Skin: Negative for injury, rash, and discoloration, Neuro: Negative for headache, weakness, numbness, tingling, and seizure activity. Psych: Negative for depression, anxiety, suicide ideation, homicidal ideation, and hallucinations, Allergy/Immunology: Negative for hives, rash, and allergies, Endocrine: Negative for neck swelling, polydipsia, polyuria, polyphagia, and marked weight changes, Hematologic/Lymphatic: Negative for swollen nodes, abnormal bleeding, and unusual bruising. Abdomen/GI: Positive for abdominal pain, nausea, vomiting, Negative for diarrhea, constipation, abdominal cramps, abdominal distension, anorexia, dysphagia, hematemesis, black/tarry stool, rectal pain, rectal bleeding. Exam: 01:11 Constitutional: This is a well developed, well nourished patient who is awake, alert, kdr and in mild to moderate distress. Head/Face: Normocephalic, atraumatic. Eyes: Pupils equal round and reactive to light, extra-ocular motions intact. Lids and lashes normal. Conjunctiva and sclera are non-icteric and not injected. Cornea within normal limits. Periorbital areas with no swelling, redness, or edema. Neck: Trachea midline, no thyromegaly or masses palpated, and no cervical lymphadenopathy. Supple, full range of motion without nuchal rigidity, or vertebral point tenderness. No Meningismus. Chest/axilla: Normal chest wall appearance and motion. Nontender with no deformity. No lesions are appreciated. Cardiovascular: Regular rate and rhythm with a normal S1 and S2. No gallops, murmurs, or rubs. Normal PMI, no JVD. No pulse deficits. Respiratory: Lungs have equal breath sounds bilaterally, clear to auscultation and percussion. No rales, rhonchi or wheezes noted. No increased work of breathing, no retractions or nasal flaring. Back: No spinal tenderness. No costovertebral tenderness. Full range of motion. Skin: Warm, dry with normal turgor. Normal color with no rashes, no lesions, and no evidence of cellulitis. MS/ Extremity: Pulses equal, no cyanosis. Neurovascular intact. Full, normal range of motion. Neuro: Awake and alert, GCS 15, oriented to person, place, time, and situation. Cranial nerves II-XII grossly intact. Motor strength 5/5 in all extremities. Sensory grossly intact. Cerebellar exam normal. Normal gait. Psych: Awake, alert, with orientation to person, place and time. Behavior, mood, and affect are within normal limits. 01:11 Abdomen/GI: Inspection: abdomen appears normal, Bowel sounds: diminished, in all quadrants, Palpation: soft, mild abdominal tenderness, in all quadrants. Vital Signs: 07/11 21:13 BP 104 / 90; Pulse 124; Resp 18; Temp 98.8(TE); Pulse Ox 100% on R/A; Weight 58.06 kg; hb Height 5 ft. 7 in. (170.18 cm); Pain 10/10; 22:25 BP 142 / 94; Pulse 101; Resp 18; Pulse Ox 99% on R/A; jb4 07/12 00:02 BP 131 / 91; Pulse 98; Resp 16; Pulse Ox 100% on R/A; jb4 00:56 BP 126 / 84; Pulse 89; Resp 16; Pulse Ox 99% on R/A; jb4 03:04 BP 120 / 80; Pulse 87; Resp 17 S; Pulse Ox 99% on R/A; Pain 9/10; ha1 03:35 BP 121 / 80; Pulse 85; Resp 16 S; Pulse Ox 99% on R/A; Pain 3/10; ha1 04:32 BP 111 / 74; Pulse 86; Resp 17 S; Pulse Ox 98% on R/A; Pain 4/10; ha1 07/11 21:13 Body Mass Index 20.05 (58.06 kg, 170.18 cm) hb MDM: 01:11 Data reviewed: vital signs, nurses notes, lab test result(s), radiologic studies. kdr Counseling: I had a detailed discussion with the patient and/or guardian regarding: the historical points, exam findings, and any diagnostic results supporting the discharge/admit diagnosis, lab results, radiology results, the need for outpatient follow up. 04:20 Patient medically screened. kdr 04:33 ED course: Patient was greatly improved with the interventions given. She was happy kdr with the care provided the plan for discharge and follow-up.. 07/11 21:32 Order name: CBC with Diff; Complete Time: 23:31 kdr 07/11 21:32 Order name: CMP; Complete Time: 23:31 kdr 07/11 21:32 Order name: Lipase; Complete Time: 23:31 kdr 07/11 22:53 Order name: COVID-19 SARS RT PCR (Document "Date of Onset" if Symptomatic); Complete jb4 Time: :07/12 01:10 Order name: CXR XRAY kdr 07/12 02:17 Order name: Abdomen EDMS 07/11 21:32 Order name: IV Saline Lock; Complete Time: 22:31 kdr 07/11 21:32 Order name: Labs collected and sent; Complete Time: :31 kdr Administered Medications: 07/10 23:57 Drug: Phenergan (promethazine) 12.5 mg Route: IVP; Site: left upper arm; [facility] 07/12 00:58 Follow up: Response: No adverse reaction; Marked relief of symptoms; Pain is decreased [facility] 07/11 22:13 Drug: NS 0.9% 1000 ml Route: IV; Rate: 1 bolus; Site: left upper arm; jb4 23:02 Follow up: Response: No adverse reaction; IV Status: Completed infusion; IV Intake: jb4 1000ml 22:15 Drug: ProTONIX (pantoprazole) 40 mg Route: IVP; Site: left upper arm; jb4 23:02 Follow up: Response: No adverse reaction jb4 22:17 Drug: SOLU-Medrol (methylPrednisoLONE) 125 mg Route: IVP; Site: left upper arm; jb4 23:02 Follow up: Response: No adverse reaction jb4 22:19 Drug: Benadryl (diphenhydrAMINE) 25 mg Route: IVP; Site: left upper arm; jb4 23:02 Follow up: Response: No adverse reaction; Marked relief of symptoms jb4 22:21 Drug: Phenergan (promethazine) 12.5 mg Route: IVP; Site: left upper arm; jb4 23:02 Follow up: Response: No adverse reaction; Marked relief of symptoms jb4 22:24 Drug: Dilaudid (HYDROmorphone) 2 mg Route: IVP; Site: left upper arm; jb4 23:02 Follow up: Response: No adverse reaction; Marked relief of symptoms; Pain is decreased jb4 23:52 Drug: Potassium Effervescent Tablet 50 mEq Route: PO; jb4 07/12 00:01 Follow up: Response: No adverse reaction jb4 02:58 Not Given (Other Intervention Used): Dilaudid (HYDROmorphone) 2 mg IVP once; Place in lg3 100 cc and infuse oer 30 minutes 03:05 Drug: Dilaudid (HYDROmorphone) 2 mg Route: IM; Site: right ventrogluteal; ha1 03:35 Follow up: Response: No adverse reaction; Pain is decreased; RASS: Alert and Calm (0) ha1 Disposition Summary: 07/12/22 04:20 Discharge Ordered Location: Home kdr Problem: an acute exacerbation kdr Symptoms: have improved kdr Condition: Stable kdr Diagnosis - Abdominal pain, Generalized kdr - Vomiting kdr - Acute gastritis kdr - Acute gastritis without bleeding kdr - SARS-associated coronavirus as the cause of diseases classified elsewhere kdr Followup: kdr - With: Private Physician - When: 2 - 3 days - Reason: If symptoms return, Further diagnostic work-up, Recheck today's complaints, Continuance of care, Re-evaluation by your physician Discharge Instructions: - Discharge Summary Sheet kdr - Gastritis, Adult kdr - Nausea and Vomiting, Adult, [id number] kdr - Abdominal Pain, Adult, [id number] kdr - COVID-19 kdr - Things to Know about the COVID-19 Pandemic - [facility] kdr - 10 Things You Can Do to Manage Your COVID-19 Symptoms at Home - [facility] kdr - COVID-19: Quarantine vs. Isolation - [facility] kdr - Prevent the Spread of COVID-19 if You Are Sick - [facility] kdr Forms: - Medication Reconciliation Form kdr - Thank You Letter kdr - Antibiotic Education kdr - Work release form ha1 Prescriptions: - Neurontin 300 mg Oral Capsule - take 1 capsule by ORAL route every 8 hours; 30 capsule; Refills: 0, Product kdr Selection Permitted - Pepcid 20 mg Oral Tablet - take 1 tablet by ORAL route once daily; 20 tablet; Refills: 0, Product kdr Selection Permitted - promethazine 25 mg Oral Tablet - take 1 tablet by ORAL route every 6 hours As needed; 20 tablet; Refills: 0, kdr Product Selection Permitted Signatures: Dispatcher [employer] EDMS Dc Steve MD MD kdr Erica Seymour, RN RN Kenton Garcia, RN RN jb4 Miay Cramer RN RN lg3 Lilian Sanchez, RN RN ha1 Corrections: (The following items were deleted from the chart) 02:17 01:10 Abdomen Pelvis W [id number] ordered. EDMS EDMS
[2022-07-12 05:31] VITALS: TEMP 98.8
[2022-07-12 06:08] VITALS: BP 111/74; O2SAT 98
--- NOTE | 2022-07-13 13:06 | RAD REPORT ---
EXAM DESCRIPTION: CT - Abdomen Pelvis Wo Contrast - 07/12/2022 6:48 am COMPARISON: CT abdomen pelvis March 10, 2022 CLINICAL HISTORY: Abdominal pain TECHNIQUE: Multiple helical axial images were obtained through the abdomen and pelvis without intrav enous contrast. Sagittal and coronal reformatted images are reviewed as well. All CT scans at this facility use dose modulation, iterative reconstruction, and/or weight-based dosi ng when appropriate to reduce radiation dose to as low as reasonably achievable. FINDINGS: Lung bases: Mild left basilar atelectasis noted. Liver: Homogenous attenuation is demonstrated. Gallbladder/biliary: Gallbladder appears unremarkable. No calcified gallstones. No evidence of biliar y ductal dilatation. Pancreas: Unremarkable. Spleen: Unremarkable. Adrenals: Unremarkable. Kidneys and ureters: No evidence of renal or ureteral stones. No hydronephrosis. Bladder: Unremarkable. Pelvic organs: Post hysterectomy changes noted. Bowel: No evidence of bowel obstruction. No bowel wall thickening. Appendix is not visualized. Peritoneum: No free air. No significant free fluid. Lymph nodes: Unremarkable. Vasculature: Minimal calcific aortic atherosclerosis noted. Soft tissues: Unremarkable. Bones: Degenerative changes of both hips noted with joint space narrowing and osteophyte formation. IMPRESSION: No evidence for an acute process within the abdomen or pelvis. Electronically signed by: Khurram Springer MD 07/12/2022 3:32 AM CDT Due to temporary technical issues with the PACS/Fluency reporting system, reports are being signed by the in house radiologists without review as a courtesy to insure prompt reporting. The interpreting radiologist is fully responsible for the content of the report.
--- NOTE | 2022-07-13 13:07 | RAD REPORT ---
EXAM DESCRIPTION: RAD - Chest Single View - 07/12/2022 1:35 am CLINICAL HISTORY: CHEST PAIN TECHNIQUE: Frontal view of the chest. COMPARISON: No relevant prior studies available. FINDINGS: Lungs: Unremarkable. No consolidation. Pleural space: Unremarkable. No pneumothorax. Heart: Unremarkable. No cardiomegaly. Mediastinum: Unremarkable. Bones/joints: Unremarkable. IMPRESSION: No acute disease. Electronically signed by: Leonardo Bravo MD 07/12/2022 1:59 AM CDT Due to temporary technical issues with the PACS/Fluency reporting system, reports are being signed by the in house radiologists without review as a courtesy to insure prompt reporting. The interpreting radiologist is fully responsible for the content of the report.
== END 2022-07-12 04:47 | disposition home or self-care (01) ==
LOC: ER 21:07
DX: U07.1 COVID-19 (principal); K29.00 Acute gastritis without bleeding; R11.10 Vomiting, unspecified; F17.210 Nicotine dependence, cigarettes, uncomplicated; Z88.2 Allergy status to sulfonamides; Z88.5 Allergy status to narcotic agent; Z88.8 Allergy status to other drugs, medicaments and biological substances
CPT/HCPCS: 36415; 71045; 74176; 80053; 83690; 85025; 96361; 96372; 96374; 96375; 99284; C9113; J1170; J1200; J2550; J2930; J7030; U0003

== ENCOUNTER 2022-08-02 20:05 | Emergency (ER) | payer SELFPAY ==
--- OUTSIDE RECORDS SUMMARY | 2022-08-02 20:24 | XMS REPORT | Continuity of Care Document ---
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 every 8 Medical (eight) Branch hours as needed for Nausea and Vomiting (N/V). gabapentin 2019-11 2020- No [id number] 300mg Take 1 Univers 300 mg 2-05 12-20 capsule by ity of capsule 00:00: 05:59 mouth 3 [place] 00 :00 (three) Medical times Branch daily for 14 days. gabapentin 2019-11 2020- No [id number] 300mg Take 1 Univers 300 mg 2-05 [...] s: acute pain ALPRAZolam 2019- 2020- No [id number] 2mg Take 1 Univers 2 mg tablet 2- 12-13 tablet by it y of 00:00: 05:59 mouth 2 [place] 00 :00 (two) Medical times Branch daily for 7 days. ALPRAZolam 2019- 2020- No [id number] 2mg Take 1 Univers 2 mg tablet 2- 12-13 tablet by it y of 00:00: 05:59 mouth 2 [place] 00 :00 (two) Medical times Branch daily for 7 days. simethicone 2019- 2020- No [id number] 80mg Take 1 Univers 80 mg 2- 12-11 tablet by ity of chewable 00:00: 05:59 mouth [place] tablet 00 :00 after Medical meals and Branch at bedtime for 5 days. simethicone 2019- 2020- No [id number] 80mg Take 1 Univers 80 mg 2- 12-11 tablet by ity of chewable 00:00: 05:59 mouth [place] tablet 00 :00 after Medical meals and Branch at bedtime for 5 days. ibuprofen 2019-11 2020- No [id number] 600mg Take 1 [facility] 600 mg 2- 12-10 tablet by ity of tablet 00:00: 00:00 mouth [place] 00 :00 every 6 Medical (six) Branch hours as needed for Pain (scale 1-3). simethicone 2019- 2020- No [id number] 80mg Take 1 Univers 80 mg 2- 12-10 tablet by ity of chewable 00:00: 00:00 mouth [place] tablet 00 :00 after Medical meals and Branch at bedtime for 5 days. gabapentin 2019-11 2020- No [id number] 300mg Take 1 [facility] 300 mg 2- 12-10 capsule by ity of capsule 00:00: 00:00 mouth 3 [place] 00 :00 (three) Medical times Branch daily for 14 days. ALPRAZolam 2019- 2020- No [id number] 2mg Take 1 Univers 2 mg tablet 2- 12-10 tablet by it y of 00:00: 00:00 mouth 2 [place] 00 :00 (two) Medical times Branch daily for 7 days. proMETHazin 2019- 2020- No [id number] 25mg Take 1 Univers e 25 mg 2-05 12-10 tablet by ity of tablet 00:00: 00:00 mouth [place] 00 :00 every 8 Medical (eight) Branch hours as needed for Nausea and Vomiting (N/V). proMETHazin 2019-11 2020- No [id number] 25mg Take 1 Univers e 25 mg 12-20 tablet by ity of tablet 00:00: 00:00 mouth [place] 00 :00 every 4 Medical (four) Branch hours as needed for Nausea and Vomiting (N/V) for up to 7 days. HYDROmorpho 2019-11 Yes 1mg 1 mg, Slow Univers ne 204 IV Push, ity of (DILAUDID) 02:56: Q6HPRN, [place] injection 1 33 Starting Medi ryann mg [facility] 10/17/20 at 205, Until Discontinu ed, Routine, Pain (scale 7-10)
U se approved by (Faculty): GENERAL SURGERY
General surgeon approving: Darren Chun ALPRAZolam 2019-11 Yes .25mg 0.25 mg, Un thor (XANAX) 204 Oral, BID, ity of tablet 0.25 02:00: First dose [place] mg 00 on [facility] 10/17/20 at Branch 1999, Until Discontinu ed, Routine HYDROcodone 2019-11- No 5mg 5 mg, Univ ers -acetaminop 12-1804 Oral, Q4H, i ty of hen (HYCET) 22:00: 22:24 First dose [place] 7.5-325 00 :22 (after Medical mg/15 mL last Branch solution 5 modificati mg on) on [facility] 10/17/20 at 1600, Until Discontinu ed, Routine bisacodyL 2019-11 Yes 10mg 10 mg, Univer s (DULCOLAX) 12-18 Rectal, ity of suppository 03:00: QHSPRN, [place] 10 mg 00 Starting Medical [facility] 10/16/20 at 2100, Until Discontinu ed, Routine, Constipati on traZODone 2019-11- No 50mg 50 mg, Unive rs (COMPOUNDED 12-18 Oral, QHS, i ty of ) oral 03:00: 19:57 [place] suspension 00 :34 on Wed Medical 50 mg 12/2/20 at Branch 2100, Until Discontinu ed, Routine methocarbam 2019-11 Yes 1000mg 1,000 mg, Univers oL 12-17 Intravenou ity of (ROBAXIN) 20:00: s, Q8H, [place] injection 00 First dose Medi ryann 1,000 mg on [facility] 10/16/20 at 1400, Until Discontinu ed, Routine [...] :23 (after Medica l liquid 500 last mg modificati on) on [facility] 10/16/20 at 1200, Until Discontinu ed, Routine bisacodyL 2019-11 2020- No 10mg 10 mg, Unive rs (DULCOLAX) 12-17 Rectal, ity o f suppository 15:45: 14:55 ONCE, 1 [place] 10 mg 00 :00 dose, [facility] 10/16/20 at Branch 0945, Routine melatonin 2019-11 Yes 3mg 3 mg, Univers (MELATIN) 12-17 Oral, QHS, ity of tablet 3 mg 03:00: First dose [place] 00 on [facility] 10/15/20 at Branch 2100, Until Discontinu ed, Routine acetaminoph 2019-11 2020- No 650mg 650 mg, U nivers en 12-16 Oral, Q8H, ity of (TYLENOL) 20:00: 14:59 First dose [place] 160 mg/5 mL 00 :29 on Medica l liquid 650 10/15/[address] [facility] nc mg 1400, Until Discontinu ed, Routine HYDROcodone 2019-11 2020- No 5mg 5 mg, Univ ers -acetaminop 12-1603 Oral, Q6H, i ty of hen (HYCET) 18:00: 19:51 First dose [place] 7.5-325 00 :24 (after Medical mg/15 mL last Branch solution 5 modificati mg on) on [facility] 10/15/20 at 1200, Until Discontinu ed, Routine HYDROMORPHO 2019-11 2020- No Unive rs NE [employer] 12-16 ity of 6MG/30ML 17:00: 14:57 [place] 00 :48 Medical Branch NaCl 0.9% 2019-11 Yes 10mL 10 mL, Univer s (NS) 12-16 Slow IV ity of injection 16:51: Push, [place]N, [place] 10 mL 43 Starting Medical [facility] 10/15/20 at 1051, Until Discontinu ed, Routine, line maintenanc e enoxaparin 2019-11 Yes 40mg 40 mg, Unive rs (LOVENOX) 12-16 Subcutaneo ity of injection 15:00: us, Q24H, [place] 40 mg 00 First dose Medical on [facility] 10/15/20 at 0900, Until Discontinu ed, Routine sennosides 2019-11- No 8.6mg 8.6 mg, Un thor (SENOKOT) 12-16 Oral, ity of tablet 8.6 15:00: 19:51 DAILY, [place] mg 00 :23 First dose Medical on [facility] 10/15/20 at 0900, Until Discontinu ed, Routine docusate 2019-11- No 100mg 100 mg, Univ ers (COLACE) 12-1603 Oral, ity of capsule 100 15:00: 19:51 DAILY, [place] mg 00 :23 First dose Medical on [facility] 10/15/20 at 0900, Until Discontinu ed, Routine HYDROcodone 2019-11 2020- No 5mg 5 mg, Univ ers -acetaminop 12-16 Oral, ity of hen (HYCET) 14:06: 16:54 Q6HPRN, [place] 7.5-325 01 :51 Starting Medical mg/15 mL [facility] Branch solution 5 10/15/20 at mg 0806, Until Wed10/15/20 at 1054, Routine, Pain (scale 4-6) proMETHazin 2019-11 Yes 25mg 25 mg, IV U nivers e 12-16 Piggyback, ity of (PHENERGAN) 03:57: Q8HPRN, [place] 25 mg in 05 Starting Medical NaCl 0.9% [facility] Branch (NS) 50 mL 10/14/20 IV at 2156, piggyback Until Discontinu ed, Routine, Nausea and Vomiting (N/V) HYDROMORPHO 2019-11- No Unive rs NE [employer] 12-16 ity of 6MG/30ML 03:00: 16:54 [place] 00 :51 Medical Branch pantoprazol 2019-11 Yes 40mg 40 mg, Univ ers e 12-16 Oral, BID, ity of (PROTONIX) 02:00: First dose [place] EC tablet 00 on [facility] Medical 40 mg 10/14/20 Branch at 1999, Until Discontinu ed, Routine metoprolol 2019-11 Yes 25mg 25 mg, Unive rs tartrate 12-16 Oral, BID, ity o f (LOPRESSOR) 02:00: First dose [place] tablet 25 00 on [facility] Medical mg 10/14/20 Branch at 1999, Until Discontinu ed, Routine diphenhydrA 2019-11- No 12.5mg 12.5 mg, Univers MINE 12-16 Slow IV ity of (BENADRYL) 01:59: 03:57 Push, [place] injection 02 :54 Q6HPRN, Medical 12.5 mg Starting Branch Wed10/14/20 at 1958, Until Wed10/14/20 at 2156, Routine, Itching naloxone 2019-11 Yes .1mg 0.1 mg, [facility] (NARCAN) 12-16 Slow IV ity of [...] ity of (fixed 17:30: 01:59 [place] dose) [employer] 00 :31 Medical injection Branch lactated 2019-11- [...] IV ity of (BENADRYL) 16:32: 18:15 Push, [place] injection 01 :20 Q4HPRN, Medical 12.5 mg [...] 11:48: (two) [place] 52 times Medical daily. [place] ALPRAZolam 2019-11 Yes 2mg Take 2 mg Un thor (XANAX) 2 12-07 by mouth 2 ity of mg tablet 22:40: (two) [place] 26 times Medical daily. [place] ALPRAZolam 2019-11 Yes 2mg Take 2 mg [...] 40 mg 35 times Medical delayed-rel daily. [place] ease suspension Pantoprazol 2019-11 Yes 40mg Take [...] at 999 Uni vers (NS) bolus 12-02 mL/hr, ity of infusion 05:30: 06:38 1,000 [...] 1-3). Indication s: chronic pain acetaminoph 2020- 2020- No 2745 1{tbl} Take 1 U [...] [place] 04 times Medical daily. Branch Pantoprazol 2020- Yes 40mg Take 40 mg Univers e 1-13 by mouth 2 ity of (PROTONIX) 15:03: (two) [place] 40 mg 04 times Medical delayed-rel daily. Branch ease suspension ALPRAZolam 2019- Yes 2mg Take 2 mg Un thor (XANAX) 2 1-13 by mouth 2 ity of mg tablet 15:03: (two) [place] 04 times Medical daily. Branch Pantoprazol 2020- Yes [...] 2019-11 Yes 2mg Take 2 mg Un thro (XANAX) 2 1-13 by mouth 2 ity of mg tablet 15:03: (two) [place] 04 times Medical daily. Branch Pantoprazol 2019-11 Yes 40mg Take 40 mg Univers e 1-13 by mouth 2 ity of (PROTONIX) 15:03: (two) [place] 40 mg 04 times Medical delayed-rel daily. Branch ease suspension opium 10 2019-11 Yes [id number] 1mL Take 1 mL Univers mg/mL 1-13 by mouth ity of (morphine) 00:00: every 6 [place] tincture 00 (six) Medical hours. Branch opium 10 2019-11 Yes [id number] 1mL Take 1 mL Univers mg/mL 1-13 by mouth ity of (morphine) 00:00: every 6 [place] tincture 00 (six) Medical hours. Branch opium 10 2019-11 Yes [id number] 1mL Take 1 mL Univers mg/mL 1-13 by mouth ity of (morphine) 00:00: every 6 [place] tincture 00 (six) Medical hours. Branch opium 10 2019-11 Yes [id number] 1mL Take 1 mL Univers mg/mL 1-13 by mouth ity of (morphine) 00:00: every 6 [place] tincture 00 (six) Medical hours. Branch opium 10 2019-11 Yes [id number] 1mL Take 1 mL Univers mg/mL 1-13 by mouth ity of (morphine) 00:00: every 6 [place] tincture 00 (six) Medical hours. Branch opium 10 2019-11 Yes [id number] 1mL Take 1 mL Univers mg/mL 1-13 by mouth ity of (morphine) 00:00: every 6 [place] tincture 00 (six) Medical hours. Branch opium 10 2019-11 Yes [id number] 1mL Take 1 mL Univers mg/mL 1-13 by mouth ity of (morphine) 00:00: every 6 [place] tincture 00 (six) Medical hours. Branch opium 10 2019-11 Yes [id number] 1mL Take 1 mL Univers mg/mL 1-13 by mouth ity of (morphine) 00:00: every 6 [place] tincture 00 (six) Medical hours. Branch opium 10 2019-11 Yes [id number] 1mL Take 1 mL Univers mg/mL 1-13 by mouth ity of (morphine) 00:00: every 6 [place] tincture 00 (six) Medical hours. Branch opium 10 2019-11 Yes [id number] 1mL Take 1 mL Univers mg/mL 1-13 by mouth ity of (morphine) 00:00: every 6 [place] tincture 00 (six) Medical hours. Branch opium 10 2019-11 Yes [id number] 1mL Take 1 mL Univers mg/mL 1-13 by mouth ity of (morphine) 00:00: every 6 [place] tincture 00 (six) Medical hours. Branch opium 10 2019-11 Yes [id number] 1mL Take 1 mL Univers mg/mL 1-13 by mouth ity of (morphine) 00:00: every 6 [place] tincture 00 (six) Medical hours. Branch opium 2019-11 Yes [id number] 1mL Take 1 mL Univers mg/mL 1-13 by mouth ity of (morphine) 00:00: every 6 [place] tincture 00 (six) Medical hours. Branch opium 2019-11 Yes [id number] 1mL Take 1 mL Univers mg/mL 1-13 by mouth ity of (morphine) 00:00: every 6 [place] tincture 00 (six) Medical hours. Branch opium 10 2019-11 Yes [id number] 1mL Take 1 mL Univers mg/mL 1-13 by mouth ity of (morphine) 00:00: every 6 [place] tincture 00 (six) Medical hours. Branch opium 10 2019-11 Yes [id number] 1mL Take 1 mL Univers mg/mL 1-13 by mouth ity of (morphine) 00:00: every 6 [place] tincture 00 (six) Medical hours. Branch opium 10 2019-11 Yes [id number] 1mL Take 1 mL Univers mg/mL 1-13 by mouth ity of (morphine) 00:00: every 6 [place] tincture 00 (six) Medical hours. Branch opium 10 2019-11 Yes [id number] 1mL Take 1 mL Univers mg/mL 1-13 by mouth ity of (morphine) 00:00: every 6 [place] tincture 00 (six) Medical hours. Branch opium 10 2019-11 Yes [id number] 1mL Take 1 mL Univers mg/mL 1-13 by mouth ity of (morphine) 00:00: every 6 [place] tincture 00 (six) Medical hours. Branch opium 10 2019-11 Yes [id number] 1mL Take 1 mL Univers mg/mL 1-13 by mouth ity of (morphine) 00:00: every 6 [place] tincture 00 (six) Medical hours. Branch opium 10 2019-11 Yes [id number] 1mL Take 1 mL Univers mg/mL 1-13 by mouth ity of (morphine) 00:00: every 6 [place] tincture 00 (six) Medical hours. Branch opium 10 2019-11 Yes [id number] 1mL Take 1 mL Univers mg/mL 1-13 by mouth ity of (morphine) 00:00: every 6 [place] tincture 00 (six) Medical hours. Branch opium 10 2019-11 Yes [id number] 1mL Take 1 mL Univers mg/mL 1-13 by mouth ity of (morphine) 00:00: every 6 [place] tincture 00 (six) Medical hours. Branch opium 10 2019-11 Yes [id number] 1mL Take 1 mL Univers mg/mL 1-13 by mouth ity of (morphine) 00:00: every 6 [place] tincture 00 (six) Medical hours. Branch opium 10 2019-11 Yes [id number] 1mL Take 1 mL Univers mg/mL 1-13 by mouth ity of (morphine) 00:00: every 6 [place] tincture 00 (six) Medical hours. Branch opium 10 2019-11 Yes [id number] 1mL Take 1 mL Univers mg/mL 1-13 by mouth ity of (morphine) 00:00: every 6 [place] tincture 00 (six) Medical hours. Branch psyllium 2019-11- No [id number] 1{packe Take 1 Univers 3.4 gram 1-13 12-14 t} Packet by ity o f packet 00:00: 05:59 mouth 3 [place] 00 :00 (three) Medical times Branch daily before meals for 30 days. psyllium 2019-11- No [id number] 1{packe Take 1 Univers 3.4 gram 1-13 12-14 t} Packet by ity o f packet 00:00: 05:59 mouth 3 [place] 00 :00 (three) Medical times Branch daily before meals for 30 days. psyllium 2019-11- No [id number] 1{packe Take 1 Univers 3.4 gram 11-27 12-14 t} Packet by ity o f packet 00:00: 05:59 mouth 3 [place] 00 :00 (three) Medical times Branch daily before meals for 30 days. psyllium 2019-11- No [id number] 1{packe Take 1 Univers 3.4 gram -13 12-14 t} Packet by ity o f packet 00:00: 05:59 mouth 3 [place] 00 :00 (three) Medical times Branch daily before meals for 30 days. psyllium 2019-11- No [id number] 1{packe Take 1 Univers 3.4 gram -13 12-14 t} Packet by ity o f packet 00:00: 05:59 mouth 3 [place] 00 :00 (three) Medical times Branch daily before meals for 30 days. psyllium 2019-11- No [id number] 1{packe Take 1 Univers 3.4 gram 11-27 12-14 t} Packet by ity o f packet 00:00: 05:59 mouth 3 [place] 00 :00 (three) Medical times Branch daily before meals for 30 days. psyllium 2019-11- No [id number] 1{packe Take 1 Univers 3.4 gram 11-27 12-14 t} Packet by ity o f packet 00:00: 05:59 mouth 3 [place] 00 :00 (three) Medical times Branch daily before meals for 30 days. psyllium 2019-11- No [id number] 1{packe Take 1 Univers 3.4 gram 13 12-14 t} Packet by ity o f packet 00:00: 05:59 mouth 3 [place] 00 :00 (three) Medical times Branch daily before meals for 30 days. psyllium 2019-11- No [id number] 1{packe Take 1 Univers 3.4 gram -13 12-14 t} Packet by ity o f packet 00:00: 05:59 mouth 3 [place] 00 :00 (three) Medical times Branch daily before meals for 30 days. psyllium 2019-11- No [id number] 1{packe Take 1 Univers 3.4 gram 1-13 12-14 t} Packet by ity o f packet 00:00: 05:59 mouth 3 [place] 00 :00 (three) Medical times Branch daily before meals for 30 days. psyllium 2019-11- No [id number] 1{packe Take 1 Univers 3.4 gram 1-13 12-14 t} Packet by ity o f packet 00:00: 05:59 mouth 3 [place] 00 :00 (three) Medical times Branch daily before meals for 30 days. psyllium 2019-11- No [id number] 1{packe Take 1 Univers 3.4 gram 1-13 12-14 t} Packet by ity o f packet 00:00: 05:59 mouth 3 [place] 00 :00 (three) Medical times Branch daily before meals for 30 days. psyllium 2019-11- No [id number] 1{packe Take 1 Univers 3.4 gram 1-13 12-14 t} Packet by ity o f packet 00:00: 05:59 mouth 3 [place] 00 :00 (three) Medical times Branch daily before meals for 30 days. psyllium 2019-11- No [id number] 1{packe Take 1 Univers 3.4 gram 1-13 12-14 t} Packet by ity o f packet 00:00: 05:59 mouth 3 [place] 00 :00 (three) Medical times [place] daily before meals for 30 days. psyllium 2019-11- No [id number] 1{packe Take 1 Univers 3.4 gram 1-13 12-10 t} Packet by ity o f packet 00:00: 00:00 mouth 3 [place] 00 :00 (three) Medical times Branch daily before meals for 30 days. dextroamphe 2019-11 2020- No 30mg Take 30 mg Univers tamine-amph -04 by mouth 2 i ty of etamine 23:07: 00:00 (two) [place] (ADDERALL) 54 :00 times Medical 30 mg daily. Branch tablet ALPRAZolam 2019-11 Yes 2mg Take 2 mg Un thor (XANAX) 2 -04 by mouth 2 ity of mg tablet 23:07: (two) [place] 52 times Medical daily. Branch Pantoprazol 2019-11 Yes 40mg Take 40 mg Univers e 11-18 by mouth 2 ity of (PROTONIX) 23:07: [...] Yes 50mg 50 mg, Unive rs tartrate 04 Oral, BID, ity o f (LOPRESSOR) 02:00: First dose [place] tablet 50 00 (after Medical mg last Branch modificati on) on Wed09/17/20 at 2000, Until Discontinu ed, Routine HYDROmorpho 2019-11 2020- No .5mg 0.5 mg, Un thor ne -09-18 Slow IV ity of (DILAUDID) 01:15: 00:26 Push, [place] injection 00 :00 ONCE, 1 Medical 0.5 mg dose, [facility] 09/17/20 at 1915, Routine
Use approved by [...] Indication s: acute pain proMETHazin 2019-11- No [id number] 25mg Take 1 Univers e 25 mg 1-04 11-25 tablet by ity of tablet 00:00: 05:59 mouth [place] 00 :00 every 6 Medical (six) Branch hours as needed for Nausea and Vomiting (N/V) for up to 20 days. proMETHazin 2019-11 2020- No [id number] 25mg Take 1 Univers e 25 mg 1-04 11-25 tablet by ity of tablet 00:00: 05:59 mouth [place] 00 :00 every 6 Medical (six) Branch hours as needed for Nausea and Vomiting (N/V) for up to 20 days. proMETHazin 2019-11 2020- No [id number] 25mg Take 1 Univers e 25 mg 1-04 11-25 tablet by ity of tablet 00:00: 05:59 mouth [place] 00 :00 every 6 Medical (six) Branch hours as needed for Nausea and Vomiting (N/V) for up to 20 days. proMETHazin 2019-11 2020- No [id number] 25mg Take 1 Univers e 25 mg 1-04 11-25 tablet by ity of tablet 00:00: 05:59 mouth [place] 00 :00 every 6 Medical (six) Branch hours as needed for Nausea and Vomiting (N/V) for up to 20 days. proMETHazin 2019- 2020- No [id number] 25mg Take 1 Univers e 25 mg 1-04 11-25 tablet by ity of tablet 00:00: 05:59 mouth [place] 00 :00 every 6 Medical (six) Branch hours as needed for Nausea and Vomiting (N/V) for up to 20 days. proMETHazin 2019-11- No [id number] 25mg Take 1 Univers e 25 mg 1-04 11-25 tablet by ity of tablet 00:00: 05:59 mouth [place] 00 :00 every 6 Medical (six) Branch hours as needed for Nausea and Vomiting (N/V) for up to 20 days. proMETHazin 2019-2019- No [id number] 25mg Take 1 Univers e 25 mg 1-04 11-25 tablet by ity of tablet 00:00: 05:59 mouth [place] 00 :00 every 6 Medical (six) Branch hours as needed for Nausea and Vomiting (N/V) for up to 20 days. proMETHazin 2019-11- No [id number] 25mg Take 1 Univers e 25 mg 1-04 11-25 tablet by ity of tablet 00:00: 05:59 mouth [place] 00 :00 every 6 Medical (six) Branch hours as needed for Nausea and Vomiting (N/V) for up to 20 days. proMETHazin 2019-11- No [id number] 25mg Take 1 Univers e 25 mg 1-04 11-25 tablet by ity of tablet 00:00: 05:59 mouth [place] 00 :00 every 6 Medical (six) Branch hours as needed for Nausea and Vomiting (N/V) for up to 20 days. proMETHazin 2019-11- No [id number] 25mg Take 1 Univers e 25 mg 1-04 11-25 tablet by ity of tablet 00:00: 05:59 mouth [place] 00 :00 every 6 Medical (six) Branch hours as needed for Nausea and Vomiting (N/V) for up to 20 days. proMETHazin 2019-11- No [id number] 25mg Take 1 Univers e 25 mg 1-04 11-25 tablet by ity of tablet 00:00: 05:59 mouth [place] 00 :00 every 6 Medical (six) Branch hours as needed for Nausea and Vomiting (N/V) for up to 20 days. proMETHazin 2019- 2020- No [id number] 25mg Take 1 Univers e 25 mg 11-1825 tablet by ity of tablet 00:00: 05:59 mouth [place] 00 :00 every 6 Medical (six) Branch hours as needed for Nausea and Vomiting (N/V) for up to 20 days. proMETHazin 2019- 2020- No [id number] 25mg Take 1 Univers e 25 mg 11-1825 tablet by ity of tablet 00:00: 05:59 mouth [place] 00 :00 every 6 Medical (six) Branch hours as needed for Nausea and Vomiting (N/V) for up to 20 days. proMETHazin 2019-2019- No [id number] 25mg Take 1 Univers e 25 mg [...] 400mg 400 mg, Uni vers oxide 0-31 09-14 Oral, ONCE ity of (MAG-OX 18:15: 19:50 [...] 59 Q6HPRN, Medical 12.5 mg Starting Branch [facility] 09/14/20 at 0926, Until Discontinu ed, Routine, Itching pantoprazol 2019-11 Yes 40mg 40 mg, Univ ers e Oral, ity of (PROTONIX) 14:00: DAILY, [place] EC tablet 00 First dose Medi ryann 40 mg on [facility] Branch 09/14/20 at 0900, Until Discontinu ed ALPRAZolam 2019-11 Yes .5mg 0.5 mg, Univ ers (XANAX) Oral, ity of tablet 0.5 13:00: TIDPRN, [place] mg 00 Starting [facility] 09/14/20 at 0800, Until Discontinu ed, Routine, anxiety clindamycin 2019-11 No 600mg 600 mg, IV Univers in 5 % 09-14 Piggyback, ity of dextrose 06:45: 19:02 Q8H ABX, [place] (CLEOCIN) 00 :12 First dose Medi ryann 600 mg/50 on [facility] mL IV 09/14/20 piggyback at 0145, RTU [...] ONCE, 1 [place] 00 :00 dose, [facility] 09/13/20 Branch at 2330, Routine morpHINE 2019-11- No 4mg 4 mg, Slow Un thor injection 4 09-14 IV Push, ity of mg 04:00: 22:20 Q4HPRN, [place] 00 :01 Starting [facility] 09/13/20 at 2300, Until 09/14/20 at 1720, [...] IV ity of (PHENERGAN) 01:23: 18:35 Piggyback, [place] 12.5 mg in 35 :16 Q4HPRN, Medica l NaCl 0.9% Starting Branch (NS) 50 mL Fri IV 09/13/20 piggyback at 2022, Until 09/16/20 at 1235, Routine, Nausea and Vomiting (N/V) metoprolol 2019-11- No 25mg 25 mg, Univ ers tartrate 0 1103 Oral, BID, ity of (LOPRESSOR) 01:00: 23:43 [...] 2 mg, Slow Un thor injection 2 009-14 IV Push, ity of mg 21:52: 03:49 Q6HPRN, [place] 02 :41 Starting Medical Fri Branch 09/13/20 [...] 2 ity of mg tablet 21:19: (two) [place] 51 times Medical daily. Branch dextroamphe 2019- [...] 2 ity of mg tablet 21:19: (two) [place] 51 times Medical daily. Branch dextroamphe 2019-11 Yes 30mg Take 30 mg Univers tamine-amph 0-30 by mouth 2 it y of etamine 21:19: (two) [place] (ADDERALL) 51 times Medical 30 mg daily. Branch tablet Pantoprazol 2019-11 Yes 40mg Take 40 mg Univers e 0-30 by mouth 2 ity of (PROTONIX) 21:19: (two) [place] 40 mg 51 times Medical delayed-rel daily. Branch ease suspension diphenhydrA 2019-11 2020- No 12.5mg 12.5 mg, Univers MINE 0-30 10-31 Slow IV ity of (BENADRYL) 21:14: 14:27 Push, [place] injection 00 :41 Q6HPRN, Medical 12.5 mg Starting Branch 09/13/20 at 1614, Until 09/14/20 at 0927, Routine, Itching acetaminoph 2019-11 Yes 650mg 650 mg, Un thor en 0-30 Oral, ity of (TYLENOL) 20:56: Q6HPRN, [place] tablet 650 54 Starting Medic al mg Fri Branch 09/13/20 at 1556, Until Discontinu ed, Routine, Pain (scale 1-3) NaCl 0.9% 2019-11 2020- No 1000mL at 125 Uni vers (NS) IV 0-30 11-02 mL/hr, IV ity of infusion 20:15: 16:42 Infusion, [place] 1,000 mL 00 :06 CONTINUOUS Medic al , Starting Branch Wed09/13/20 at 1515, Until 11/2/20 at 1042, Routine ALPRAZolam 2019-11 Yes 2mg [...] IV ity of (PF)) 19:15: 18:11 Push, [place] injection 00 :00 ONCE, 1 Medical 20 mg dose, Fri Branch 09/13/20 at 1415, LUISA methylpredn 2019-11- No 125mg 125 mg, IV Univers isolone sod 0-30 10-30 Piggyback, i ty of succ 19:15: 18:06 ONCE, 1 [place] (SOLU-MEDRO 00 :00 dose, Fri Med ical L) 09/13/20 Branch injection at 1415, 125 mg STAT morpHINE 2019-11- No 4mg 4 mg, Slow Un thor injection 4 0-30 10-30 IV Push, ity of mg 18:15: 17:33 ONCE, 1 [place] 00 :00 dose, Fri Medical 09/13/20 Branch at 1315, STAT ondansetron 2019-11- No 4mg 4 mg, Slow Univers (ZOFRAN [...] ONCE, 1 Medica l NaCl 0.9% dose, Wed Branc h (NS) 50 mL 09/13/20 piggyback [...] 7 days. Indication s: acute pain HYDROcodone 2019-2019- No [id number] 1{tbl} Take 1 [...] No 25mg 25 mg, IV Univers e 09-01 Piggyback, ity of (PHENERGAN) 11:00: 09:56 ONCE, 1 [place] 25 mg in 00 :00 dose, [place] Medica l NaCl 0.9% 09/01/20 Branch (NS) 50 mL at 0600, piggyback 50 mL morpHINE 2019-11- No 4mg 4 mg, Slow Un thor injection 4 0-18 10-18 IV Push, ity of mg 11:00: 09:55 ONCE, 1 [place] 00 :00 dose, [facility] 09/01/20 Branch at 0600, STAT iohexol 2019- 2020- No 120mL 120 mL, Unive rs [...] IV Medical Infusion, Branch ONCE, 1 dose, [facility] 09/01/20 at 0300, STAT diphenhydrA 2019-11- No 25mg 25 mg, Uni vers MINE 0-18 10-18 Slow IV ity of (BENADRYL) 08:00: 07:20 Push, [place] injection 00 :00 ONCE, 1 Medical 25 mg dose, [facility] 09/01/20 at 0300, STAT proMETHazin 2019-11- [...] 07:22 ONCE, 1 [place] 00 :00 dose, [facility] 09/01/20 Branch at 0300, STAT iohexol 2019-2019- No 60mL 60 mL, Univers (OMNIPAQUE 0-10 [...] ONCE, 1 Medical 12.5 mg dose, Fri [place] 08/23/20 at 1900, STAT morpHINE 2019-11- No [...] 1,000 mL 00 :00 IV Medical Infusion, [place] ONCE, 1 dose, 08/23/20 at 1845, STAT ALPRAZolam 2019-11 Yes [...] Sat Medica l NaCl 0.9% 08/17/20 at [facility] (NS) 50 mL 2315, 50 piggyback mL morpHINE 2019-11- No 4mg 4 mg, Slow Un thor injection 4 0-04 10-04 IV Push, ity of mg 04:15: 03:25 ONCE, 1 [place] 00 :00 dose, Sat Medical 08/17/20 at [place] 2315, STAT NaCl 0.9% 2019-11 2020- No 500mL at 999 Univ ers (NS) bolus 0-04 10-04 mL/hr, 500 it y of infusion 04:15: 05:26 mL, IV [place] 500 mL 00 :00 Infusion, Medical ONCE, 1 [place] dose, 08/17/20 at 2315, STAT iohexol 2019-2019- No 119mL 119 mL, Unive rs (OMNIPAQUE 0-04 10-04 Intravenou it y of 350 02:19: 02:19 s, ONCE, 1 [place] BULK-150 00 :00 dose, Sat Medica l mL) 08/17/20 at [place] injection 0, 119 mL Routine NaCl 0.9% 2019-11 Yes 1000mL at 999 Univ ers (NS) IV 0-04 mL/hr, ity of infusion 02:15: Intravenou [place] 1,000 mL 00 s, Medical CONTINUOUS Branch , Starting 08/17/20 at 2115, Until Discontinu ed, Routine proMETHazin 2019-11- No 25mg 25 mg, IV Univers e 0-04 10- Piggyback, ity of (PHENERGAN) 02:15: 01:24 ONCE, 1 [place] 25 mg in 00 :00 dose, Sat Medica l NaCl 0.9% 08/17/20 at [facility] (NS) 50 mL 2114, 50 piggyback mL morpHINE 2019-11- No 4mg 4 mg, Slow Un thor injection 4 0- 10- IV Push, ity of mg 02:15: 01:24 ONCE, 1 [place] 00 :00 dose, [facility] 08/17/20 at Branch 2114, STAT diphenhydrA 2019-11- No 25mg 25 mg, Uni vers MINE 0-04 10- Slow IV ity of (BENADRYL) 02:15: 01:24 Push, [place] injection 00 :00 ONCE, 1 Medical 25 mg dose, [facility] 08/17/20 at 211, STAT proMETHazin 2019-11 Yes [id number] 25mg Take 1 Univers e 25 mg 0-03 tablet by ity of tablet 00:00: mouth [place] 00 every 6 Medical (six) Branch hours as needed for Nausea and Vomiting (N/V). proMETHazin 2019-11 Yes [id number] 25mg Take 1 Univers e 25 mg 0-03 tablet by ity of tablet 00:00: mouth [place] 00 every 6 Medical (six) Branch hours as needed for Nausea and Vomiting (N/V). proMETHazin 2019- Yes [id number] 25mg Take 1 Univers e 25 mg 0-03 tablet by ity of tablet 00:00: mouth [place] 00 every 6 Medical (six) Branch hours as needed for Nausea and Vomiting (N/V). proMETHazin 2019-11 Yes [id number] 25mg Take 1 Univers e 25 mg 0-03 tablet by ity of tablet 00:00: mouth [place] 00 every 6 Medical (six) Branch hours as needed for Nausea and Vomiting (N/V). proMETHazin 2020- Yes [id number] 25mg Take 1 Univers e 25 mg 0-03 tablet by ity of tablet 00:00: mouth [place] 00 every 6 Medical (six) Branch hours as needed for Nausea and Vomiting (N/V). proMETHazin 2019- Yes [id number] 25mg Take 1 Univers e 25 mg 0-03 tablet by ity of tablet 00:00: mouth [place] 00 every 6 Medical (six) Branch hours as needed for Nausea and Vomiting (N/V). proMETHazin 2019- Yes [id number] 25mg Take 1 Univers e 25 mg 0-03 tablet by ity of tablet 00:00: mouth [place] 00 every 6 Medical (six) Branch hours as needed for Nausea and Vomiting (N/V). proMETHazin 2019- Yes [id number] 25mg Take 1 Univers e 25 mg 0-03 tablet by ity of tablet 00:00: mouth [place] 00 every 6 Medical (six) Branch hours as needed for Nausea and Vomiting (N/V). proMETHazin 2019-11 Yes [id number] 25mg Take 1 Univers e 25 mg 0-03 tablet by ity of tablet 00:00: mouth [place] 00 every 6 Medical (six) Branch hours as needed for Nausea and Vomiting (N/V). proMETHazin 2019- Yes [id number] 25mg Take 1 Univers e 25 mg 0-03 tablet by ity of tablet 00:00: mouth [place] 00 every 6 Medical (six) Branch hours as needed for Nausea and Vomiting (N/V). proMETHazin 2019- Yes [id number] 25mg Take 1 Univers e 25 mg 0-03 tablet by ity of tablet 00:00: mouth [place] 00 every 6 Medical (six) Branch hours as needed for Nausea and Vomiting (N/V). proMETHazin 2019-1 Yes [id number] 25mg Take 1 Univers e 25 mg 0-03 tablet by ity of tablet 00:00: mouth [place] 00 every 6 Medical (six) Branch hours as needed for Nausea and Vomiting (N/V). proMETHazin 2019-1 Yes [id number] 25mg Take 1 Univers e 25 mg 0-03 tablet by ity of tablet 00:00: mouth [place] 00 every 6 Medical (six) Branch hours as needed for Nausea and Vomiting (N/V). proMETHazin 2020-1 Yes [id number] 25mg Take 1 Univers e 25 mg 0-03 tablet by ity of tablet 00:00: mouth [place] 00 every 6 Medical (six) Branch hours as needed for Nausea and Vomiting (N/V). proMETHazin 2019-1 Yes [id number] 25mg Take 1 Univers e 25 mg 0-03 tablet by ity of tablet 00:00: mouth [place] 00 every 6 Medical (six) Branch hours as needed for Nausea and Vomiting (N/V). proMETHazin 2019-1 Yes [id number] 25mg Take 1 Univers e 25 mg 0-03 tablet by ity of tablet 00:00: mouth [place] 00 every 6 Medical (six) Branch hours as needed for Nausea and Vomiting (N/V). proMETHazin 2019-1 Yes [id number] 25mg Take 1 Univers e 25 mg 0-03 tablet by ity of tablet 00:00: mouth [place] 00 every 6 Medical (six) Branch hours as needed for Nausea and Vomiting (N/V). proMETHazin 2019-1 Yes [id number] 25mg Take 1 Univers e 25 mg 0-03 tablet by ity of tablet 00:00: mouth [place] 00 every 6 Medical (six) Branch hours as needed for Nausea and Vomiting (N/V). proMETHazin 2019-1 Yes [id number] 25mg Take 1 Univers e 25 mg 0-03 tablet by ity of tablet 00:00: mouth [place] 00 every 6 Medical (six) Branch hours as needed for Nausea and Vomiting (N/V). proMETHazin 2019-11 2020- No [id number] 25mg Take 1 Univers e 25 mg 0-03 11-04 tablet by ity of tablet 00:00: 00:00 mouth [place] 00 :00 every 6 Medical (six) Branch hours as needed for Nausea and Vomiting (N/V). ALPRAZolam 2019-0 Yes 2mg Take 2 mg Un thor (XANAX) 2 17 by mouth 2 ity of mg tablet [...] Yes 2mg 2 mg, Unive rs ne 08-01 Oral, ity of (DILAUDID) 12:00: Q6HPRN, [place] tablet 2 mg 00 Starting Medi [facility] Branch 08/01/20 at 0700, Until Discontinu ed, Routine, Pain (scale 7-10) ibuprofen 2020-0 Yes [id number] 600mg Take 1 [facility] 600 mg 9-17 tablet by ity of tablet 00:00: mouth [place] 00 every 6 Medical (six) Branch hours. loperamide 2020-0 Yes [id number] 2mg Take 1 Univers 2 mg 9-17 capsule by ity of capsule 00:00: mouth [place] 00 daily. Medical Branch methocarbam 2020-0 Yes [id number] 500mg Take 1 Univers oL 500 mg 9-17 tablet by ity o f tablet 00:00: mouth 4 (four) Medical times Branch daily. ibuprofen 2020-0 Yes [id number] 600mg Take 1 [facility] 600 mg 9-17 tablet by ity of tablet 00:00: mouth [place] 00 every 6 Medical (six) Branch hours. loperamide 2020-0 Yes [id number] 2mg Take 1 [facility] 2 mg 9-17 capsule by ity of capsule 00:00: mouth [place] 00 daily. Medical Branch methocarbam 2020-0 Yes [id number] 500mg Take 1 Univers oL 500 mg 9-17 tablet by ity o f tablet 00:00: mouth (four) Medical times Branch daily. ibuprofen 2020-0 Yes [id number] 600mg Take 1 [facility] 600 mg 9-17 tablet by ity of tablet 00:00: mouth [place] 00 every 6 Medical (six) Branch hours. loperamide 2020-0 Yes [id number] 2mg Take 1 [facility] 2 mg 9-17 capsule by ity of capsule 00:00: mouth [place] 00 daily. Medical Branch methocarbam 2020-0 Yes [id number] 500mg Take 1 [facility] oL 500 mg 9-17 tablet by ity o f tablet 00:00: mouth (four) Medical times Branch daily. ibuprofen 2020-0 Yes [id number] 600mg Take 1 [facility] 600 mg 9-17 tablet by ity of tablet 00:00: mouth [place] 00 every 6 Medical (six) Branch hours. loperamide 2020-0 Yes [id number] 2mg Take 1 [facility] 2 mg 9-17 capsule by ity of capsule 00:00: mouth [place] 00 daily. Medical Branch methocarbam 2020-0 Yes [id number] 500mg Take 1 [facility] oL 500 mg 9-17 tablet by ity o f tablet 00:00: mouth 4 (four) Medical times Branch daily. ibuprofen 2020-0 Yes [id number] 600mg Take 1 [facility] 600 mg 9-17 tablet by ity of tablet 00:00: mouth [place] 00 every 6 Medical (six) Branch hours. loperamide 2020-0 Yes [id number] 2mg Take 1 [facility] 2 mg 9-17 capsule by ity of capsule 00:00: mouth [place] 00 daily. Medical Branch methocarbam 2020-0 Yes [id number] 500mg Take 1 [facility] oL 500 mg 9-17 tablet by ity o f tablet 00:00: mouth 00 (four) Medical times Branch daily. ibuprofen 2020-0 Yes [id number] 600mg Take 1 [facility] 600 mg 9-17 tablet by ity of tablet 00:00: mouth [place] 00 every 6 Medical (six) Branch hours. loperamide 2020-0 Yes [id number] 2mg Take 1 [facility] 2 mg 9-17 capsule by ity of capsule 00:00: mouth 00 daily. Medical Branch methocarbam 2020-0 Yes [id number] 500mg Take 1 [facility] oL 500 mg 9-17 tablet by ity o f tablet 00:00: mouth (four) Medical times Branch daily. ibuprofen 2020-0 Yes [id number] 600mg Take 1 [facility] 600 mg 9-17 tablet by ity of tablet 00:00: mouth [place] 00 every 6 Medical (six) Branch hours. loperamide 2020-0 Yes [id number] 2mg Take 1 [facility] 2 mg 9-17 capsule by ity of capsule 00:00: mouth 00 daily. Medical Branch methocarbam 2020-0 Yes [id number] 500mg Take 1 [facility] oL 500 mg 9-17 tablet by ity o f tablet 00:00: mouth (four) Medical times Branch daily. ibuprofen 2020-0 Yes [id number] 600mg Take 1 [facility] 600 mg 9-17 tablet by ity of tablet 00:00: mouth [place] 00 every 6 Medical (six) Branch hours. loperamide 2020-0 Yes [id number] 2mg Take 1 [facility] 2 mg 9-17 capsule by ity of capsule 00:00: mouth 00 daily. Medical Branch methocarbam 2020-0 Yes [id number] 500mg Take 1 [facility] oL 500 mg 9-17 tablet by ity o f tablet 00:00: mouth (four) Medical times Branch daily. ibuprofen 2020-0 Yes [id number] 600mg Take 1 [facility] 600 mg 9-17 tablet by ity of tablet 00:00: mouth [place] 00 every 6 Medical (six) Branch hours. loperamide 2020-0 Yes [id number] 2mg Take 1 [facility] 2 mg 9-17 capsule by ity of capsule 00:00: mouth 00 daily. Medical Branch methocarbam 2020-0 Yes [id number] 500mg Take 1 [facility] oL 500 mg 9-17 tablet by ity o f tablet 00:00: mouth 00 (four) Medical times Branch daily. ibuprofen 2020-0 Yes [id number] 600mg Take 1 [facility] 600 mg 9-17 tablet by ity of tablet 00:00: mouth [place] 00 every 6 Medical (six) Branch hours. loperamide 2020-0 Yes [id number] 2mg Take 1 [facility] 2 mg 9-17 capsule by ity of capsule 00:00: mouth 00 daily. Medical Branch methocarbam 2020-0 Yes [id number] 500mg Take 1 [facility] oL 500 mg 9-17 tablet by ity o f tablet 00:00: mouth (four) Medical times Branch daily. ibuprofen 2020-0 Yes [id number] 600mg Take 1 [facility] 600 mg 9-17 tablet by ity of tablet 00:00: mouth 00 every 6 Medical (six) Branch hours. loperamide 2020-0 Yes [id number] 2mg Take 1 [facility] 2 mg 9-17 capsule by ity of capsule 00:00: mouth 00 daily. Medical Branch methocarbam 2020-0 Yes [id number] 500mg Take 1 [facility] oL 500 mg 9-17 tablet by ity o f tablet 00:00: mouth (four) Medical times Branch daily. ibuprofen 2020-0 Yes [id number] 600mg Take 1 [facility] 600 mg 9-17 tablet by ity of tablet 00:00: mouth [place] 00 every 6 Medical (six) Branch hours. loperamide 2020-0 Yes [id number] 2mg Take 1 [facility] 2 mg 9-17 capsule by ity of capsule 00:00: mouth 00 daily. Medical Branch methocarbam 2020-0 Yes [id number] 500mg Take 1 [facility] oL 500 mg 9-17 tablet by ity o f tablet 00:00: mouth (four) Medical times Branch daily. ibuprofen 2020-0 Yes [id number] 600mg Take 1 [facility] 600 mg 9-17 tablet by ity of tablet 00:00: mouth [place] 00 every 6 Medical (six) Branch hours. loperamide 2020-0 Yes [id number] 2mg Take 1 [facility] 2 mg 9-17 capsule by ity of capsule 00:00: mouth 00 daily. Medical Branch methocarbam 2020-0 Yes [id number] 500mg Take 1 [facility] oL 500 mg 9-17 tablet by ity o f tablet 00:00: mouth (four) Medical times Branch daily. ibuprofen 2020-0 Yes [id number] 600mg Take 1 [facility] 600 mg 9-17 tablet by ity of tablet 00:00: mouth [place] 00 every 6 Medical (six) Branch hours. loperamide 2020-0 Yes [id number] 2mg Take 1 [facility] 2 mg 9-17 capsule by ity of capsule 00:00: mouth 00 daily. Medical Branch methocarbam 2020-0 Yes [id number] 500mg Take 1 [facility] oL 500 mg 9-17 tablet by ity o f tablet 00:00: mouth (four) Medical times Branch daily. ibuprofen 2020-0 Yes [id number] 600mg Take 1 [facility] 600 mg 9-17 tablet by ity of tablet 00:00: mouth 00 every 6 Medical (six) Branch hours. loperamide 2020-0 Yes [id number] 2mg Take 1 [facility] 2 mg 9-17 capsule by ity of capsule 00:00: mouth 00 daily. Medical Branch methocarbam 2020-0 Yes [id number] 500mg Take 1 [facility] oL 500 mg 9-17 tablet by ity o f tablet 00:00: mouth (four) Medical times Branch daily. ibuprofen 2020-0 Yes [id number] 600mg Take 1 [facility] 600 mg 9-17 tablet by ity of tablet 00:00: mouth 00 every 6 Medical (six) Branch hours. loperamide 2020-0 Yes [id number] 2mg Take 1 [facility] 2 mg 9-17 capsule by ity of capsule 00:00: mouth 00 daily. Medical Branch methocarbam 2020-0 Yes [id number] 500mg Take 1 [facility] oL 500 mg 9-17 tablet by ity o f tablet 00:00: mouth (four) Medical times Branch daily. ibuprofen 2020-0 Yes [id number] 600mg Take 1 [facility] 600 mg 9-17 tablet by ity of tablet 00:00: mouth [place] 00 every 6 Medical (six) Branch hours. loperamide 2020-0 Yes [id number] 2mg Take 1 [facility] 2 mg 9-17 capsule by ity of capsule 00:00: mouth 00 daily. Medical Branch methocarbam 2020-0 Yes [id number] 500mg Take 1 [facility] oL 500 mg 9-17 tablet by ity o f tablet 00:00: mouth (four) Medical times Branch daily. ibuprofen 2020-0 Yes [id number] 600mg Take 1 [facility] 600 mg 9-17 tablet by ity of tablet 00:00: mouth [place] 00 every 6 Medical (six) Branch hours. loperamide 2020-0 Yes [id number] 2mg Take 1 [facility] 2 mg 9-17 capsule by ity of capsule 00:00: mouth 00 daily. Medical Branch methocarbam 2020-0 Yes [id number] 500mg Take 1 [facility] oL 500 mg 9-17 tablet by ity o f tablet 00:00: mouth (four) Medical times Branch daily. ibuprofen 2020-0 Yes [id number] 600mg Take 1 [facility] 600 mg 9-17 tablet by ity of tablet 00:00: mouth 00 every 6 Medical (six) Branch hours. loperamide 2020-0 Yes [id number] 2mg Take 1 [facility] 2 mg 9-17 capsule by ity of capsule 00:00: mouth 00 daily. Medical Branch methocarbam 2020-0 Yes [id number] 500mg Take 1 [facility] oL 500 mg 9-17 tablet by ity o f tablet 00:00: mouth (four) Medical times Branch daily. ibuprofen 2020-0 Yes [id number] 600mg Take 1 [facility] 600 mg 9-17 tablet by ity of tablet 00:00: mouth 00 every 6 Medical (six) Branch hours. loperamide 2020-0 Yes [id number] 2mg Take 1 [facility] 2 mg 9-17 capsule by ity of capsule 00:00: mouth [place] 00 daily. Medical Branch methocarbam 2020-0 Yes [id number] 500mg Take 1 [facility] oL 500 mg 9-17 tablet by ity o f tablet 00:00: mouth (four) Medical times Branch daily. ibuprofen 2020-0 Yes [id number] 600mg Take 1 [facility] 600 mg 9-17 tablet by ity of tablet 00:00: mouth [place] 00 every 6 Medical (six) Branch hours. loperamide 2020-0 Yes [id number] 2mg Take 1 [facility] 2 mg 9-17 capsule by ity of capsule 00:00: mouth 00 daily. Medical Branch methocarbam 2020-0 Yes [id number] 500mg Take 1 [facility] oL 500 mg 9-17 tablet by ity o f tablet 00:00: mouth (four) Medical times Branch daily. ibuprofen 2020-0 Yes [id number] 600mg Take 1 [facility] 600 mg 9-17 tablet by ity of tablet 00:00: mouth [place] 00 every 6 Medical (six) Branch hours. loperamide 2020-0 Yes [id number] 2mg Take 1 [facility] 2 mg 9-17 capsule by ity of capsule 00:00: mouth [place] 00 daily. Medical Branch methocarbam 2020-0 Yes [id number] 500mg Take 1 [facility] oL 500 mg 9-17 tablet by ity o f tablet 00:00: mouth (four) Medical times Branch daily. ibuprofen 2020-0 Yes [id number] 600mg Take 1 [facility] 600 mg 9-17 tablet by ity of tablet 00:00: mouth [place] 00 every 6 Medical (six) Branch hours. loperamide 2020-0 Yes [id number] 2mg Take 1 [facility] 2 mg 9-17 capsule by ity of capsule 00:00: mouth 00 daily. Medical Branch methocarbam 2020-0 Yes [id number] 500mg Take 1 [facility] oL 500 mg 9-17 tablet by ity o f tablet 00:00: mouth (four) Medical times Branch daily. ibuprofen 2020-0 Yes [id number] 600mg Take 1 [facility] 600 mg 9-17 tablet by ity of tablet 00:00: mouth [place] 00 every 6 Medical (six) Branch hours. loperamide 2020-0 Yes [id number] 2mg Take 1 [facility] 2 mg 9-17 capsule by ity of capsule 00:00: mouth [place] 00 daily. Medical Branch methocarbam 2020-0 Yes [id number] 500mg Take 1 [facility] oL 500 mg 9-17 tablet by ity o f tablet 00:00: mouth (four) Medical times Branch daily. ibuprofen 2020-0 Yes [id number] 600mg Take 1 [facility] 600 mg 9-17 tablet by ity of tablet 00:00: mouth [place] 00 every 6 Medical (six) Branch hours. loperamide 2020-0 Yes [id number] 2mg Take 1 [facility] 2 mg 9-17 capsule by ity of capsule 00:00: mouth [place] 00 daily. Medical Branch methocarbam 2020-0 Yes [id number] 500mg Take 1 [facility] oL 500 mg 9-17 tablet by ity o f tablet 00:00: mouth 4 (four) Medical times Branch daily. ibuprofen 2020-0 Yes [id number] 600mg Take 1 [facility] 600 mg 9-17 tablet by ity of tablet 00:00: mouth [place] 00 every 6 Medical (six) Branch hours. methocarbam 2020-0 Yes [id number] 500mg Take 1 [facility] oL 500 mg 9-17 tablet by ity o f tablet 00:00: mouth 4 (four) Medical times Branch daily. ibuprofen 2020-0 Yes [id number] 600mg Take 1 [facility] 600 mg 9-17 tablet by ity of tablet 00:00: mouth [place] 00 every 6 Medical (six) Branch hours. methocarbam 2020-0 Yes [id number] 500mg Take 1 [facility] oL 500 mg 9-17 tablet by ity o f tablet 00:00: mouth (four) Medical times Branch daily. ibuprofen 2020-0 Yes [id number] 600mg Take 1 [facility] 600 mg 9-17 tablet by ity of tablet 00:00: mouth [place] 00 every 6 Medical (six) Branch hours. methocarbam 2020-0 Yes [id number] 500mg Take 1 [facility] oL 500 mg 9-17 tablet by ity o f tablet 00:00: mouth (four) Medical times Branch daily. ibuprofen 2020-0 Yes [id number] 600mg Take 1 [facility] 600 mg 9-17 tablet by ity of tablet 00:00: mouth [place] 00 every 6 Medical (six) Branch hours. methocarbam 2020-0 Yes [id number] 500mg Take 1 [facility] oL 500 mg 9-17 tablet by ity o f tablet 00:00: mouth 4 (four) Medical times Branch daily. acetaminoph 2020-0 202- No [id number] 650mg Take 2 Univers en 325 mg 9-17 09-18 tablets by ity of tablet 00:00: 04:59 mouth [place] 00 :00 every 6 Medical (six) Branch hours. acetaminoph 2020-0 2021- No [id number] 650mg Take 2 Univers en 325 mg 9-17 09-18 tablets by ity of tablet 00:00: 04:59 mouth [place] 00 :00 every 6 Medical (six) Branch hours. acetaminoph 2020-0 2021- No [id number] 650mg Take 2 Univers en 325 mg 9-17 09-18 tablets by ity of tablet 00:00: 04:59 mouth [place] 00 :00 every 6 Medical (six) Branch hours. acetaminoph 2020- No [id number] 650mg Take 2 Univers en 325 mg 9-17 09-18 tablets by ity of tablet 00:00: 04:59 mouth [place] 00 :00 every 6 Medical (six) Branch hours. acetaminoph 2020- No [id number] 650mg Take 2 Univers en 325 mg 9-17 09-18 tablets by ity of tablet 00:00: 04:59 mouth [place] 00 :00 every 6 Medical (six) Branch hours. acetaminoph 2020- No [id number] 650mg Take 2 Univers en 325 mg 9-17 09-18 tablets by ity of tablet 00:00: 04:59 mouth [place] 00 :00 every 6 Medical (six) Branch hours. acetaminoph 2020- No [id number] 650mg Take 2 [facility] en 325 mg 9-17 09-18 tablets by ity of tablet 00:00: 04:59 mouth [place] 00 :00 every 6 Medical (six) Branch hours. acetaminoph 2020- No [id number] 650mg Take 2 Univers en 325 mg 9-17 09-18 tablets by ity of tablet 00:00: 04:59 mouth [place] 00 :00 every 6 Medical (six) Branch hours. acetaminoph 2020- No [id number] 650mg Take 2 Univers en 325 mg 9-17 09-18 tablets by ity of tablet 00:00: 04:59 mouth [place] 00 :00 every 6 Medical (six) Branch hours. acetaminoph 2020- No [id number] 650mg Take 2 Univers en 325 mg 9-17 09-18 tablets by ity of tablet 00:00: 04:59 mouth [place] 00 :00 every 6 Medical (six) Branch hours. acetaminoph 20202020- No [id number] 650mg Take 2 Univers en 325 mg 9-17 09-18 tablets by ity of tablet 00:00: 04:59 mouth [place] 00 :00 every 6 Medical (six) Branch hours. acetaminoph 2020- No [id number] 650mg Take 2 [facility] en 325 mg 9-17 09-18 tablets by ity of tablet 00:00: 04:59 mouth [place] 00 :00 every 6 Medical (six) Branch hours. acetaminoph 2020- No [id number] 650mg Take 2 [facility] en 325 mg 9-17 09-18 tablets by ity of tablet 00:00: 04:59 mouth [place] 00 :00 every 6 Medical (six) Branch hours. acetaminoph 2020- No [id number] 650mg Take 2 [facility] en 325 mg 9-17 09-18 tablets by ity of tablet 00:00: 04:59 mouth [place] 00 :00 every 6 Medical (six) Branch hours. acetaminoph 2020- No [id number] 650mg Take 2 [facility] en 325 mg 9-17 09-18 tablets by ity of tablet 00:00: 04:59 mouth [place] 00 :00 every 6 Medical (six) Branch hours. acetaminoph 2020- No [id number] 650mg Take 2 [facility] en 325 mg 9-17 09-18 tablets by ity of tablet 00:00: 04:59 mouth [place] 00 :00 every 6 Medical (six) Branch hours. acetaminoph 2020- No [id number] 650mg Take 2 [facility] en 325 mg 9-17 09-18 tablets by ity of tablet 00:00: 04:59 mouth [place] 00 :00 every 6 Medical (six) Branch hours. acetaminoph 2020- No [id number] 650mg Take 2 [facility] en 325 mg 9-17 09-18 tablets by ity of tablet 00:00: 04:59 mouth [place] 00 :00 every 6 Medical (six) Branch hours. acetaminoph 2020- No [id number] 650mg Take 2 [facility] en 325 mg 9-17 09-18 tablets by ity of tablet 00:00: 04:59 mouth [place] 00 :00 every 6 Medical (six) Branch hours. acetaminoph 2020-2020- No [id number] 650mg Take 2 [facility] en 325 mg 9-17 09-18 tablets by ity of tablet 00:00: 04:59 mouth [place] 00 :00 every 6 Medical (six) Branch hours. acetaminoph 2020- No [id number] 650mg Take 2 [facility] en 325 mg 9-17 09-18 tablets by ity of tablet 00:00: 04:59 mouth [place] 00 :00 every 6 Medical (six) Branch hours. acetaminoph 2020- No [id number] 650mg Take 2 [facility] en 325 mg 9-17 09-18 tablets by ity of tablet 00:00: 04:59 mouth [place] 00 :00 every 6 Medical (six) Branch hours. acetaminoph 2020- No [id number] 650mg Take 2 [facility] en 325 mg 9-17 09-18 tablets by ity of tablet 00:00: 04:59 mouth [place] 00 :00 every 6 Medical (six) Branch hours. acetaminoph 2020- No [id number] 650mg Take 2 [facility] en 325 mg 9-17 09-18 tablets by ity of tablet 00:00: 04:59 mouth [place] 00 :00 every 6 Medical (six) Branch hours. acetaminoph 2020- No [id number] 650mg Take 2 [facility] en 325 mg 9-17 09-18 tablets by ity of tablet 00:00: 04:59 mouth [place] 00 :00 every 6 Medical (six) Branch hours. acetaminoph 2020- No [id number] 650mg Take 2 [facility] en 325 mg 9-17 09-18 tablets by ity of tablet 00:00: 04:59 mouth [place] 00 :00 every 6 Medical (six) Branch hours. acetaminoph 2020- No [id number] 650mg Take 2 [facility] en 325 mg 9-17 09-18 tablets by ity of tablet 00:00: 04:59 mouth [place] 00 :00 every 6 Medical (six) Branch hours. acetaminoph 2020- No [id number] 650mg Take 2 [facility] en 325 mg 9-17 09-18 tablets by ity of tablet 00:00: 04:59 mouth [place] 00 :00 every 6 Medical (six) Branch hours. acetaminoph 2020- No [id number] 650mg Take 2 [facility] en 325 mg 9-17 09-18 tablets by ity of tablet 00:00: 04:59 mouth [place] 00 :00 every 6 Medical (six) Branch hours. acetaminoph 2020- No [id number] 650mg Take 2 [facility] en 325 mg 9-17 09-18 tablets by ity of tablet 00:00: 04:59 mouth [place] 00 :00 every 6 Medical (six) Branch hours. acetaminoph 2020- No [id number] 650mg Take 2 [facility] en 325 mg 9-17 09-18 tablets by ity of tablet 00:00: 04:59 mouth [place] 00 :00 every 6 Medical (six) Branch hours. acetaminoph 2020- No [id number] 650mg Take 2 [facility] en 325 mg 9-17 09-18 tablets by ity of tablet 00:00: 04:59 mouth [place] 00 :00 every 6 Medical (six) Branch hours. acetaminoph 2020- No [id number] 650mg Take 2 [facility] en 325 mg 9-17 09-18 tablets by ity of tablet 00:00: 04:59 mouth [place] 00 :00 every 6 Medical (six) Branch hours. acetaminoph 2020- No [id number] 650mg Take 2 [facility] en 325 mg 9-17 09-18 tablets by ity of tablet 00:00: 04:59 mouth [place] 00 :00 every 6 Medical (six) Branch hours. acetaminoph 2020- No [id number] 650mg Take 2 [facility] en 325 mg 9-17 09-18 tablets by ity of tablet 00:00: 04:59 mouth [place] 00 :00 every 6 Medical (six) Branch hours. acetaminoph 2020- No [id number] 650mg Take 2 [facility] en 325 mg 9-17 09-18 tablets by ity of tablet 00:00: 04:59 mouth [place] 00 :00 every 6 Medical (six) Branch hours. acetaminoph 2020- No [id number] 650mg Take 2 [facility] en 325 mg 9-17 09-18 tablets by ity of tablet 00:00: 04:59 mouth [place] 00 :00 every 6 Medical (six) Branch hours. acetaminoph 2020- No [id number] 650mg Take 2 Univers en 325 mg 9-17 09-18 tablets by ity of tablet 00:00: 04:59 mouth [place] 00 :00 every 6 Medical (six) Branch hours. acetaminoph 2020- No [id number] 650mg Take 2 [facility] en 325 mg 9-17 09-18 tablets by ity of tablet 00:00: 04:59 mouth [place] 00 :00 every 6 Medical (six) Branch hours. acetaminoph 2020- No [id number] 650mg Take 2 Univers en 325 mg 9-17 09-18 tablets by ity of tablet 00:00: 04:59 mouth [place] 00 :00 every 6 Medical (six) Branch hours. acetaminoph 2020-0 2020- No [id number] 650mg Take 2 Univers en 325 mg 9-17 09-18 tablets by ity of tablet 00:00: 04:59 mouth [place] 00 :00 every 6 Medical (six) Branch hours. acetaminoph 2020-0 2020- No [id number] 650mg Take 2 Univers en 325 mg 9-17 09-18 tablets by ity of tablet 00:00: 04:59 mouth [place] 00 :00 every 6 Medical (six) Branch hours. acetaminoph 2020-0 2020- No [id number] 650mg Take 2 Univers en 325 mg 9-17 09-18 tablets by ity of tablet 00:00: 04:59 mouth [place] 00 :00 every 6 Medical (six) Branch hours. acetaminoph 2019-2019- No [id number] 650mg Take 2 Univers en 325 mg 9-17 12-16 tablets by ity of tablet 00:00: 00:00 mouth [place] 00 :00 every 6 Medical (six) Branch hours. loperamide 2019-2019- No [id number] 2mg Take 1 Univers 2 mg 9-17 11-04 capsule by ity of capsule 00:00: 00:00 mouth [place] 00 :00 daily. Medical Branch HYDROmorpho 2020-0 2020- No [id number] 2mg Take [...] Medi ryann (8 %) IV 07/31/20 at Bran h Piggyback 4 0730, g Routine D5W [...] [place] capsule 2 00 First dose Medi yrann mg on Wed07/30/20 at 0900, Until Discontinu ed, Routine HYDROmorpho 2020-0 2020- No 2mg 2 mg, Univ ers ne 07-30 Oral, ity of (DILAUDID) 13:28: 11:54 Q4HPRN, [place] tablet 2 mg 43 :45 Starting Medi ryann 07/30/20 at 0828, Until Wed08/01/20 at 0654, Routine, [...] mL/hr, Medical mEq CONTINUOUS Branch , Starting [facility] 07/29/20 at 1800, Until Wed07/31/20 at 0638, Routine lactated 2020-0 2020- No 1000mL at 999 [facility] ers ringers IV 07-29-14 mL/hr, ity of infusion 22:30: 22:14 1,000 mL, [place] 1,000 mL 00 :00 Intravenou Medic al s, ONCE, 1 Branch dose, [facility] 07/29/20 at 1730, Routine ibuprofen 2020-0 Yes 600mg 600 mg, [facility] ers (IBU) 07-29 Oral, Q6H ity of tablet 600 17:00: ABX, First [place] mg 00 dose on [facility] 07/29/20 at 1200, Until Discontinu ed, Routine NaCl 0.9% 2020-0 Yes 10mL 10 mL, Univer s (NS) 07-29 Slow IV ity of injection 15:59: Push, PRN, [place] 10 mL 00 Starting [facility] 07/29/20 at 1059, Until Discontinu ed, Routine, line maintenanc e lidocaine 2020-0 Yes 5mL 5 mL, Univers 1% (PF) 07-29 Subcutaneo ity of (XYLOCAINE) 15:59: us, PRN, [place] injection 5 00 Starting Medi ryann mL [facility] 07/29/20 at 1059, Until Discontinu ed, Routine, Local anesthesia pantoprazol 2020-0 Yes 40mg 40 mg, [facility] ers e 07-29 Oral, ity of (PROTONIX) 14:00: DAILY, [place] EC tablet 00 First dose Medi ryann 40 mg on [facility] 07/29/20 at 0900, Until Discontinu ed, Routine acetaminoph 2020-0 Yes 650mg 650 mg, Un thor en 07-29 Oral, Q6H ity of (TYLENOL) 14:00: ABX, First [place] tablet 650 00 dose on Medica l mg [facility] 07/29/20 at 0900, Until Discontinu ed, Routine KCL 2020-0 2020- No 20meq 20 mEq, Univers (KLOR-CON 07-29 Oral, ity of M20) tablet 13:45: 13:50 ONCE, 1 [place] 20 mEq 00 :00 dose, [facility] 07/29/20 at Branch 0845, Routine methocarbam 2020-0 Yes 500mg 500 mg, Un thor oL - Oral, QID, ity of (ROBAXIN) 13:00: First [...] (after Medical last Branch modificati on) on [place] 07/28/20 at 2000, Until Discontinu ed, Routine methocarbam 2020-0 2020- No 1g 1,000 mg U nivers oL 07-28 (1 g), IV ity of (ROBAXIN) 22:00: 21:57 Piggyback, [place] 1,000 mg in 00 :00 ONCE, 1 Medic al NaCl 0.9% dose, [facility] h (NS) 07/28/20 at piggyback 1700, 100 mL acetaminoph 2020-0 2020- No 1000mg 1,000 mg, Univers en ADULT 07-28 IV ity of (OFIRMEV) 15:00: 08:16 Infusion, [place] injection 00 :00 Administer Medi ryann 1,000 mg over 15 Branch Minutes, Q8H ABX, 3 doses, First dose (after last reorder) on [place] 07/28/20 at 1000, Last dose on [facility] 07/29/20 at 0200, Routine
Indicatio n: Non-periop erative Patient
Approved by: Per Policy (NPO Status) ALPRAZolam 2020-0 2020- No .5mg 0.5 mg, Uni vers (XANAX) 07-28 Oral, PRN, ity o f tablet 0.5 13:53: 16:59 1 dose, [place] mg 25 :00 Starting [facility] Branch 07/28/20 at 0853, Until Discontinu ed, Routine, anxiety ALPRAZolam 2019-0 Yes 1mg 1 mg, Univer s (XANAX) 07-28 Oral, ity of tablet 1 mg 13:52: QHSPRN, [place] 54 Starting [facility] Branch 07/28/20 at 0852, Until Discontinu ed, Routine, [...] 0900, Until Discontinu ed, Routine magnesium 2019- 2020- No 2g 2 g, IV Univ ers sulfate in 07-26 Piggyback, it y of water 2 13:00: 23:17 ONCE, 1 [place] gram/50 mL 00 :00 dose, Fri Medi ryann (4 %) 07/26/20 at Branch infusion 2 0800, g Routine proCHLORper Yes 10mg 10 mg, IV U nivers azine 07-26 Piggyback, ity of (COMPAZINE) 11:53: Q6HPRN, [place] 10 mg in 33 Starting Medical NaCl 0.9% Fri Branch (NS) 07/26/20 at piggyback 0653, Until Discontinu ed, 50 mL metoprolol 2020- No 5mg 5 mg, IV Un thor (LOPRESSOR) 07-26 Piggyback, i ty of injection 5 05:00: 21:03 Q6H, First [place] mg 00 :49 dose on Medical Fri Branch 07/26/20 at 0000, Until Discontinu ed, Routine morpHINE 30 2019- 2020- No Unive rs mg/30 mL 07-26 ity of (fixed 00:45: 12:37 [place] dose) [employer] 00 :04 Medical injection Branch HYDROmorpho 2019-0 2020- No .2mg 0.2 mg, Un thor ne 07-26 Slow IV ity of (DILAUDID) 00:22: 01:47 Push, [place] injection 54 :37 Q5MIN PRN, Medi ryann 0.2 mg 10 doses, Branch Starting [place] 07/25/20 at 1922, Until [place] 07/25/20 at 2046, Routine, Pain (scale 7-10), PACU
Us e approved by (Faculty): PAIN SERVICE acetaminoph 2020-0 2020- No 1000mg 1,000 mg, Univers en ADULT 07-26 IV ity of (OFIRMEV) 00:21: 00:44 Infusion, [place] injection 16 [...] Univers en ADULT 07-25 IV ity of (OFIRMEV) 12:45: 12:44 Infusion, [place] injection 00 [...] 0800, Until Discontinu ed, 100 mL metoprolol 2019-0 2020- No 25mg 25 mg, Univ ers tartrate 07-24 Oral, BID, ity of (LOPRESSOR) 13:00: 23:37 First dose [place] tablet 25 00 :55 on Wed Medical mg 07/24/20 at Branch 0800, Until Discontinu ed, Routine acetaminoph 0 2020- No 1000mg 1,000 mg, Univers en ADULT 07-24 IV ity of (OFIRMEV) 07:30: 22:16 Infusion, [place] injection 00 :00 Administer Medi rynan 1,000 mg over 15 Branch Minutes, Q8H [...] Branch , Starting Wed07/24/20 at 0130, Until [place] 07/28/20 at 0739, Routine morpHINE 2020- No 4mg 4 mg, Slow Un thor injection 4 07-24 IV Push, ity of mg 06:19: 14:48 Q3HPRN, [place] 51 :46 Starting Medical [facility] 07/24/20 Branch at 0119, Until [place] 07/28/20 at 0948, Routine, Pain (scale 7-10) morpHINE 2019-0 2020- No 4mg 4 mg, Slow Un thor injection 4 07-24 IV Push, ity of mg 03:45: 02:42 ONCE, 1 [place] 00 :00 dose, Tue Medical 07/23/20 at Branch 2245, STAT NaCl 0.9% 2019-0 2020- No 500mL at 999 Univ ers (NS) bolus 9-09 09-09 mL/hr, 500 it y of infusion 03:45: 03:41 mL, IV [place] 500 mL 00 :00 Infusion, Medical ONCE, 1 [place] dose, 07/23/20 at 2245, STAT NaCl 0.9% 2019-2019- No 1000mL at 150 Uni vers (NS) IV 07-24 mL/hr, ity of infusion 03:45: 09:49 Intravenou [place] 1,000 mL 00 :01 s, Medical CONTINUOUS [place] , Starting 07/23/20 at 2245, Until 07/24/20 at 0449, Routine proMETHazin 2019- 2020- No 12.5mg 12.5 mg, Univers e 07-24 IV ity of (PHENERGAN) 01:30: 01:30 Piggyback, [place] 12.5 mg in 00 :00 ONCE, 1 Medica l NaCl 0.9% dose, Tue Bran h (NS) 50 mL 07/23/20 at piggyback 2030, 50 mL morpHINE 2019-0 2020- No 4mg 4 mg, Slow Un thor injection 4 07-24 IV Push, ity of mg 01:15: 00:22 ONCE, 1 [place] 00 :00 dose, [facility] 07/23/20 at Branch 2015, STAT morpHINE 2019-0 2020- No 4mg 4 mg, Slow Un thor injection 4 07-23 IV Push, ity of mg 22:30: 21:20 ONCE, 1 [place] 00 :00 dose, [facility] 07/23/20 at Branch 1730, STAT piperacilli 2019-0 2020- No 3.375g 3.375 g, Univers n-tazobacta 07-23 IV ity of m (ZOSYN) 22:30: 22:14 Piggyback, [place] 3.375 g in 00 :00 ONCE, 1 Medica l NaCl 0.9% dose, Tue Branc h (NS) 100 mL 07/23/20 at MINI-BAG 1730, 100 mL
Reas on for Anti-Infec tive: Documented Infection< br>Documen carl Infection Site: Abdominal< br>Duratio n of Therapy: 7 days iohexol 2020-0 2020- No 114mL 114 mL, Unive rs (OMNIPAQUE 07-23 Intravenou it y of 350 20:46: 20:47 s, ONCE, 1 [place] BULK-150 00 :00 dose, Tue Medica l mL) 07/23/20 at Branch injection 1600, 114 mL Routine methylPREDN 2019-0 2020- No 40mg 40 mg, IV Univers ISolone sod 07-23 Piggyback, i ty of succ 19:15: 19:10 ONCE, 1 [place] (SOLU-MEDRO 00 :00 dose, Tue Med ical L (PF)) 07/23/20 at Branch injection 1415, STAT 40 mg diphenhydrA 2019- 2020- No 25mg 25 mg, Uni vers MINE 07-23 Slow IV ity of (BENADRYL) 19:15: 19:18 Push, [place] injection 00 :00 ONCE, 1 Medical 25 mg dose, Tue Branch 07/23/20 at 1415, STAT morpHINE 2019-0 2020- No 4mg 4 mg, Slow Un thor injection 4 07-23 IV Push, ity of mg 19:15: 18:59 ONCE, 1 [place] 00 :00 dose, Tue Medical 07/23/20 at Branch 1415, STAT famotidine 2019- 2020- No 20mg 20 mg, Univ ers (PEPCID 07-23 Intravenou ity o f (PF)) 18:45: 19:02 s, ONCE, 1 [place] injection 00 :00 dose, Tue Medic al 20 mg 07/23/20 at Branch 1345, LUISA proMETHazin 2019-0 2020- No 12.5mg 12.5 mg, Univers e 07-23 IV ity of (PHENERGAN) 18:45: 19:01 Piggyback, [place] 12.5 mg in 00 :00 ONCE, 1 Medica l NaCl 0.9% dose, [facility] Branc h (NS) 50 mL 07/23/20 at piggyback 1345, 50 mL NaCl 0.9% 2019-0 2020- No 1000mL at 999 Uni vers (NS) bolus 07-23 mL/hr, ity of infusion 17:45: 22:20 1,000 mL, [place] 1,000 mL 00 :00 IV Medical Infusion, Branch ONCE, 1 dose, [facility] 07/23/20 at 1245, LUISA ALPRAZolam 2018-11 Yes [...] daily. Branch ease suspension metoprolol 2018-11 Yes [id number] 25mg Take 1 Un thor tartrate 25 0-10 tablet by ity of mg tablet 00:00: mouth 2 [place] 00 (two) Medical times Branch daily. metoprolol 2018-11 Yes [id number] 25mg Take 1 Un thor tartrate 25 0-10 tablet by ity of mg tablet 00:00: mouth 2 [place] 00 (two) Medical times Branch daily. metoprolol 2018-11 Yes [id number] 25mg Take 1 Un thor tartrate 25 0-10 tablet by ity of mg tablet 00:00: mouth 2 [place] 00 (two) Medical times Branch daily. acetaminoph 2018-11 Yes [id number] 1{tbl} Take 1 Univers en-codeine 0-10 tablet by ity of (TYLENOL-CO 00:00: mouth [place] DEINE #4) 00 every 4 Medical 300-60 mg (four) Branch tablet hours as needed for Pain. levoFLOXaci 2018-11 Yes [id number] 750mg Take 1 Univers n 750 mg 0-10 tablet by ity of tablet 00:00: mouth [place] 00 every 24 Medical (twenty-fo Branch ur) hours. metoprolol 2018-11 Yes [id number] 25mg Take 1 Un thor tartrate 25 0-10 tablet by ity of mg tablet 00:00: mouth 2 [place] 00 (two) Medical times Branch daily. metoprolol 2018-11 Yes [id number] 25mg Take 1 Un thor tartrate 25 0-10 tablet by ity of mg tablet 00:00: mouth 2 [place] 00 (two) Medical times Branch daily. metoprolol 2018-11 Yes [id number] 25mg Take 1 Un thor tartrate 25 0-10 tablet by ity of mg tablet 00:00: mouth (two) Medical times Branch daily. metoprolol 2018-11 Yes [id number] 25mg Take 1 Un thor tartrate 25 0-10 tablet by ity of mg tablet 00:00: mouth (two) Medical times Branch daily. metoprolol 2018-11 Yes [id number] 25mg Take 1 Un thor tartrate 25 0-10 tablet by ity of mg tablet 00:00: mouth (two) Medical times Branch daily. metoprolol 2018-11 Yes [id number] 25mg Take 1 Un thor tartrate 25 0-10 tablet by ity of mg tablet 00:00: mouth (two) Medical times Branch daily. metoprolol 2018-11 Yes [id number] 25mg Take 1 Un thor tartrate 25 0-10 tablet by ity of mg tablet 00:00: mouth (two) Medical times Branch daily. metoprolol 2018-11 Yes [id number] 25mg Take 1 Un thor tartrate 25 0-10 tablet by ity of mg tablet 00:00: mouth (two) Medical times Branch daily. metoprolol 2018-11 Yes [id number] 25mg Take 1 Un thor tartrate 25 0-10 tablet by ity of mg tablet 00:00: mouth (two) Medical times Branch daily. metoprolol 2018-11 Yes [id number] 25mg Take 1 Un thor tartrate 25 0-10 tablet by ity of mg tablet 00:00: mouth (two) Medical times Branch daily. metoprolol 2018-11 Yes [id number] 25mg Take 1 Un thor tartrate 25 0-10 tablet by ity of mg tablet 00:00: mouth (two) Medical times Branch daily. metoprolol 2018-11 Yes [id number] 25mg Take 1 Un thor tartrate 25 0-10 tablet by ity of mg tablet 00:00: mouth (two) Medical times Branch daily. metoprolol 2018-11 Yes [id number] 25mg Take 1 Un thor tartrate 25 0-10 tablet by ity of mg tablet 00:00: mouth (two) Medical times Branch daily. metoprolol 2018-11 Yes [id number] 25mg Take 1 Un thor tartrate 25 0-10 tablet by ity of mg tablet 00:00: mouth (two) Medical times Branch daily. metoprolol 2018-11 Yes [id number] 25mg Take 1 Un thor tartrate 25 0-10 tablet by ity of mg tablet 00:00: mouth (two) Medical times Branch daily. metoprolol 2018-11 Yes [id number] 25mg Take 1 Un thor tartrate 25 0-10 tablet by ity of mg tablet 00:00: mouth (two) Medical times Branch daily. metoprolol 2018-11 Yes [id number] 25mg Take 1 Un thor tartrate 25 0-10 tablet by ity of mg tablet 00:00: mouth (two) Medical times Branch daily. metoprolol 2018-11 Yes [id number] 25mg Take 1 Un thor tartrate 25 0-10 tablet by ity of mg tablet 00:00: mouth (two) Medical times Branch daily. metoprolol 2018-11 Yes [id number] 25mg Take 1 Un thor tartrate 25 0-10 tablet by ity of mg tablet 00:00: mouth (two) Medical times Branch daily. metoprolol 2018-11 Yes [id number] 25mg Take 1 Un thor tartrate 25 0-10 tablet by ity of mg tablet 00:00: mouth (two) Medical times Branch daily. metoprolol 2018-11 Yes [id number] 25mg Take 1 Un thor tartrate 25 0-10 tablet by ity of mg tablet 00:00: mouth (two) Medical times Branch daily. metoprolol 2018-11 Yes [id number] 25mg Take 1 Un thor tartrate 25 0-10 tablet by ity of mg tablet 00:00: mouth (two) Medical times Branch daily. metoprolol 2018-11 Yes [id number] 25mg Take 1 Un thor tartrate 25 0-10 tablet by ity of mg tablet 00:00: mouth (two) Medical times Branch daily. metoprolol 2018-11 Yes [id number] 25mg Take 1 Un thor tartrate 25 0-10 tablet by ity of mg tablet 00:00: mouth (two) Medical times Branch daily. metoprolol 2018-11 Yes [id number] 25mg Take 1 Un thor tartrate 25 0-10 tablet by ity of mg tablet 00:00: mouth (two) Medical times Branch daily. metoprolol 2018-11 Yes [id number] 25mg Take 1 Un thor tartrate 25 0-10 tablet by ity of mg tablet 00:00: mouth (two) Medical times Branch daily. metoprolol 2018-11 Yes [id number] 25mg Take 1 Un thor tartrate 25 0-10 tablet by ity of mg tablet 00:00: mouth (two) Medical times Branch daily. metoprolol 2018-11 Yes [id number] 25mg Take 1 Un thor tartrate 25 0-10 tablet by ity of mg tablet 00:00: mouth (two) Medical times Branch daily. metoprolol 2018-11 Yes [id number] 25mg Take 1 Un thor tartrate 25 0-10 tablet by ity of mg tablet 00:00: mouth (two) Medical times Branch daily. metoprolol 2018-11 Yes [id number] 25mg Take 1 Un thor tartrate 25 0-10 tablet by ity of mg tablet 00:00: mouth (two) Medical times Branch daily. metoprolol 2018-11 Yes [id number] 25mg Take 1 Un thor tartrate 25 0-10 tablet by ity of mg tablet 00:00: mouth (two) Medical times Branch daily. metoprolol 2018-11 Yes [id number] 25mg Take 1 Un thor tartrate 25 0-10 tablet by ity of mg tablet 00:00: mouth (two) Medical times Branch daily. metoprolol 2018-11 Yes [id number] 25mg Take 1 Un thor tartrate 25 0-10 tablet by ity of mg tablet 00:00: mouth (two) Medical times Branch daily. metoprolol 2018-11 Yes [id number] 25mg Take 1 Un thor tartrate 25 0-10 tablet by ity of mg tablet 00:00: mouth (two) Medical times Branch daily. metoprolol 2018-11 Yes [id number] 25mg Take 1 Un thor tartrate 25 0-10 tablet by ity of mg tablet 00:00: mouth 2 (two) Medical times Branch daily. metoprolol 2018-11 Yes [id number] 25mg Take 1 Un thor tartrate 25 0-10 tablet by ity of mg tablet 00:00: mouth [place] (two) Medical times Branch daily. metoprolol 2018-11 Yes [id number] 25mg Take 1 Un thor tartrate 25 0-10 tablet by ity of mg tablet 00:00: mouth [place] (two) Medical times Branch daily. metoprolol 2018-11 Yes [id number] 25mg Take 1 Un thor tartrate 25 0-10 tablet by ity of mg tablet 00:00: mouth [place] (two) Medical times Branch daily. metoprolol 2018-11 Yes [id number] 25mg Take 1 Un thor tartrate 25 0-10 tablet by ity of mg tablet 00:00: mouth [place] (two) Medical times Branch daily. metoprolol 2018-11 Yes [id number] 25mg Take 1 Un thor tartrate 25 0-10 tablet by ity of mg tablet 00:00: mouth [place] (two) Medical times Branch daily. metoprolol 2018-11 Yes [id number] 25mg Take 1 Un thor tartrate 25 0-10 tablet by ity of mg tablet 00:00: mouth [place] (two) Medical times Branch daily. metoprolol 2018-11 2020- No [id number] 25mg Take 1 U nivers tartrate 25 0-10 12-16 tablet by it y of mg tablet 00:00: 00:00 mouth 2 [place] 00 :00 (two) Medical times Branch daily. acetaminoph 2018-11 2020- No [id number] 1{tbl} Take 1 Univers en-codeine 0-10 -17 tablet by ity of (TYLENOL-CO 00:00: 00:00 mouth [place] DEINE #4) 00 :00 every 4 Medical 300-60 mg (four) Branch tablet hours as needed for Pain. levoFLOXaci 2018-11 2020- No [id number] 750mg Take 1 Univers n 750 mg 0-10 09-17 tablet by ity o f tablet 00:00: 00:00 mouth [place] 00 :00 every 24 Medical (twenty-fo Branch ur) hours. proMETHazin 2018-11 Yes [id number] 25mg Take 1 Univers e 25 mg 0-04 tablet by ity of tablet 00:00: mouth [place] 00 every 6 Medical (six) Branch hours as needed for Nausea and Vomiting (N/V). proMETHazin 2018-11 Yes [id number] 25mg Take 1 Univers e 25 mg 0-04 tablet by ity of tablet 00:00: mouth [place] 00 every 6 Medical (six) Branch hours as needed for Nausea and Vomiting (N/V). proMETHazin 2018-11 Yes [id number] 25mg Take 1 Univers e 25 mg 0-04 tablet by ity of tablet 00:00: mouth [place] 00 every 6 Medical (six) Branch hours as needed for Nausea and Vomiting (N/V). proMETHazin 2018-11 Yes [id number] 25mg Take 1 Univers e 25 mg 0-04 tablet by ity of tablet 00:00: mouth [place] 00 every 6 Medical (six) Branch hours as needed for Nausea and Vomiting (N/V). proMETHazin 2018-11 Yes [id number] 25mg Take 1 Univers e 25 mg 0-04 tablet by ity of tablet 00:00: mouth [place] 00 every 6 Medical (six) Branch hours as needed for Nausea and Vomiting (N/V). proMETHazin 2018-11 Yes [id number] 25mg Take 1 Univers e 25 mg 0-04 tablet by ity of tablet 00:00: mouth [place] 00 every 6 Medical (six) Branch hours as needed for Nausea and Vomiting (N/V). proMETHazin 2018-11 Yes [id number] 25mg Take 1 Univers e 25 mg 0-04 tablet by ity of tablet 00:00: mouth [place] 00 every 6 Medical (six) Branch hours as needed for Nausea and Vomiting (N/V). proMETHazin 2018-11 Yes [id number] 25mg Take 1 Univers e 25 mg 0-04 tablet by ity of tablet 00:00: mouth [place] 00 every 6 Medical (six) Branch hours as needed for Nausea and Vomiting (N/V). proMETHazin 2018-11 Yes [id number] 25mg Take 1 Univers e 25 mg 0-04 tablet by ity of tablet 00:00: mouth [place] 00 every 6 Medical (six) Branch hours as needed for Nausea and Vomiting (N/V). proMETHazin 2018-11 Yes [id number] 25mg Take 1 Univers e 25 mg 0-04 tablet by ity of tablet 00:00: mouth [place] 00 every 6 Medical (six) Branch hours as needed for Nausea and Vomiting (N/V). proMETHazin 2018-11 Yes [id number] 25mg Take 1 Univers e 25 mg 0-04 tablet by ity of tablet 00:00: mouth [place] 00 every 6 Medical (six) Branch hours as needed for Nausea and Vomiting (N/V). proMETHazin 2018-11 Yes [id number] 25mg Take 1 Univers e 25 mg 0-04 tablet by ity of tablet 00:00: mouth [place] 00 every 6 Medical (six) Branch hours as needed for Nausea and Vomiting (N/V). proMETHazin 2018-11 Yes [id number] 25mg Take 1 Univers e 25 mg 0-04 tablet by ity of tablet 00:00: mouth [place] 00 every 6 Medical (six) Branch hours as needed for Nausea and Vomiting (N/V). proMETHazin 2018-11 Yes [id number] 25mg Take 1 Univers e 25 mg 0-04 tablet by ity of tablet 00:00: mouth [place] 00 every 6 Medical (six) Branch hours as needed for Nausea and Vomiting (N/V). proMETHazin 2018-11 Yes [id number] 25mg Take 1 Univers e 25 mg 0-04 tablet by ity of tablet 00:00: mouth [place] 00 every 6 Medical (six) Branch hours as needed for Nausea and Vomiting (N/V). proMETHazin 2018-11 Yes [id number] 25mg Take 1 Univers e 25 mg 0-04 tablet by ity of tablet 00:00: mouth [place] 00 every 6 Medical (six) Branch hours as needed for Nausea and Vomiting (N/V). proMETHazin 2018-11 Yes [id number] 25mg Take 1 Univers e 25 mg 0-04 tablet by ity of tablet 00:00: mouth [place] 00 every 6 Medical (six) Branch hours as needed for Nausea and Vomiting (N/V). proMETHazin 2018-11 Yes [id number] 25mg Take 1 Univers e 25 mg 0-04 tablet by ity of tablet 00:00: mouth [place] 00 every 6 Medical (six) Branch hours as needed for Nausea and Vomiting (N/V). proMETHazin 2018-11 Yes [id number] 25mg Take 1 Univers e 25 mg 0-04 tablet by ity of tablet 00:00: mouth [place] 00 every 6 Medical (six) Branch hours as needed for Nausea and Vomiting (N/V). proMETHazin 2018-11 Yes [id number] 25mg Take 1 Univers e 25 mg 0-04 tablet by ity of tablet 00:00: mouth [place] 00 every 6 Medical (six) Branch hours as needed for Nausea and Vomiting (N/V). proMETHazin 2018-11 Yes [id number] 25mg Take 1 Univers e 25 mg 0-04 tablet by ity of tablet 00:00: mouth [place] 00 every 6 Medical (six) Branch hours as needed for Nausea and Vomiting (N/V). proMETHazin 2018-11 Yes [id number] 25mg Take 1 Univers e 25 mg 0-04 tablet by ity of tablet 00:00: mouth [place] 00 every 6 Medical (six) Branch hours as needed for Nausea and Vomiting (N/V). proMETHazin 2018-11 Yes [id number] 25mg Take 1 Univers e 25 mg 0-04 tablet by ity of tablet 00:00: mouth [place] 00 every 6 Medical (six) Branch hours as needed for Nausea and Vomiting (N/V). proMETHazin 2018-11 Yes [id number] 25mg Take 1 Univers e 25 mg 0-04 tablet by ity of tablet 00:00: mouth [place] 00 every 6 Medical (six) Branch hours as needed for Nausea and Vomiting (N/V). proMETHazin 2018-11 Yes [id number] 25mg Take 1 Univers e 25 mg 0-04 tablet by ity of tablet 00:00: mouth [place] 00 every 6 Medical (six) Branch hours as needed for Nausea and Vomiting (N/V). proMETHazin 2018-11 Yes [id number] 25mg Take 1 Univers e 25 mg 0-04 tablet by ity of tablet 00:00: mouth [place] 00 every 6 Medical (six) Branch hours as needed for Nausea and Vomiting (N/V). proMETHazin 2018-11 2020- No [id number] 25mg Take 1 Univers e 25 mg [...] Beth Medica l NaCl 0.9% 06/15/19 at [facility] h (NS) 50 mL 1515, 50 piggyback mL morpHINE 2018- No 4mg 4 mg, Slow Un thor injection 4 06-15 IV Push, ity of mg 20:15: 19:30 ONCE, 1 [place] 00 :00 dose, [facility] Medical 06/15/19 at Branch 1515, STAT iohexol [...] :00 ONCE, 1 Medical 25 mg dose, [facility] Branch 06/15/19 at 1345, STAT famotidine 2018- No 20mg 20 mg, Univ ers (PEPCID 06-15 Slow IV ity of (PF)) 18:45: 17:47 Push, [place] injection 00 :00 ONCE, 1 Medical 20 mg dose, [facility] Branch 06/15/19 at 1345, LUISA morpHINE 2018- No 4mg 4 mg, Slow Un thor injection 4 06-15 IV Push, ity of mg 18:45: 17:54 ONCE, 1 [place] 00 :00 dose, [facility] Medical 06/15/19 at Branch 1345, STAT proMETHazin [...] [place] 06/15/19 at 1200, LUISA proMETHazin Yes [id number] 25mg Take 1 U nivers e 25 mg 06-15 tablet by ity of tablet 00:00: mouth [place] 00 every 6 Medical (six) Branch hours as needed for Nausea and Vomiting (N/V). famotidine 2019- No [id number] 40mg Take 1 U nivers 40 mg 06-15 tablet by ity of tablet 00:00: 04:59 mouth [place] 00 :00 daily for Medical 14 days. Branch predniSONE Yes [id number] Take 1 U nivers 10 mg 4-26 tablet ity of tablet 00:00: daily. [place] 00 Medical Branch proMETHazin 0 Yes [id number] 25mg Insert 1 Univers e 25 mg [...] daily. 20 mg 31 delayed release tablet pantoprazol Yes 20mg QD Take 20 mg [...] as needed for Pain. HYDROcodone 2012-11 Yes Periapical 1{tbl} Take 1 [place] -acetaminop 0-22 abscess tablet by [facility] ([facility]) 00:00: mouth 10-325 mg 00 every 6 tablet hours as needed for Pain. HYDROcodone 2012-11 Yes [place] 1{tbl} Take 1 [place] -acetaminop 0-21 tablet by [facility] (NORCO) 00:00: mouth 5-325 mg 00 every 6 tablet hours as needed for Pain. HYDROcodone 2012-11 Yes Caries 1{tbl} Take 1 [place] -acetaminop 0-21 tablet by [facility] (NORCO) 00:00: mouth 5-325 mg 00 every 6 tablet hours as needed for Pain. proMETHazin 2010-11 Yes [id number] 12.5mg Take 1 Tab Univers e 2-23 by mouth ity of (PHENERGAN) 00:00: every 6 Juan as 12.5 mg 00 (six) Medical tablet hours as Branch needed for Nausea and Vomiting. Vital Signs Vital Name Observation Time Observation Value Comments Source Systolic blood 2020-10-30 92 mm[Hg] University of pressure 22:01:00 [facility] Diastolic blood 2020-10-30 65 mm[Hg] University o f pressure :01:00 [facility] Heart rate 2020-10-30 104 /min University of :01:00 [facility] Body temperature 2020-10-30 36.83 Tayla University of 22:01:00 [facility] Respiratory rate 2020-10-30 18 /min University of 22:01:00 [facility] Oxygen saturation 2020-10-30 96 /min [facility] in Arterial blood 22:01:00 [facility] by Pulse oximetry [place] Body weight 2020-10-24 61.2 kg University of :35:00 [facility] BMI 2020-10-24 21.13 kg/m2 University of 19:35:00 [facility] Systolic blood 2020-10-30 92 mm[Hg] University of pressure 22:01:00 [facility] Diastolic blood 2020-10-30 65 mm[Hg] University o f pressure 22:01:00 [facility] Heart rate 2020-10-30 104 /min University of :01:00 [facility] Body temperature 2020-10-30 36.83 Tayla [facility] 22:01:00 [facility] Respiratory rate 2020-10-30 18 /min University of 22:01:00 [facility] Oxygen saturation 2020-10-30 96 /min University in Arterial blood 22:01:00 [facility] by Pulse oximetry Branch Body weight 2020-10-24 61.2 kg University of 19:35:00 [facility] BMI 2020-10-24 21.13 kg/m2 University of 19:35:00 [facility] Branch Systolic blood 2020-10-19 92 mm[Hg] University of pressure 19:08:00 [facility] Diastolic blood 2020-10-19 63 mm[Hg] University o f pressure 19:08:00 [facility] Heart rate 2020-10-19 98 /min University of 19:08:00 [facility] Body temperature 2020-10-19 36.17 Tayla University of 19:08:00 [facility] Respiratory rate 2020-10-19 18 /min University of 19:08:00 [facility] Oxygen saturation 2020-10-19 100 /min University of in Arterial blood 19:08:00 [facility] ryann by Pulse oximetry Branch Body height 2020-10-14 170.2 cm University of 12:21:00 [facility] Body weight 2020-10-14 55.1 kg University of 12:21:00 [facility] BMI 2020-10-14 19.03 kg/m2 University of 12:21:00 [facility] Systolic blood 2020-10-19 92 mm[Hg] University of pressure 19:08:00 [facility] Diastolic blood 2020-10-19 63 mm[Hg] University o f pressure 19:08:00 [facility] Heart rate 2020-10-19 98 /min University of 19:08:00 [facility] Body temperature 2020-10-19 36.17 Tayla University of 19:08:00 [facility] Respiratory rate 2020-10-19 18 /min University of 19:08:00 [facility] Oxygen saturation 2020-10-19 100 /min University of in Arterial blood 19:08:00 [place] [facility] by Pulse oximetry Branch Body height 2020-10-14 170.2 cm University of 12:21:00 [facility] Body weight 2020-10-14 55.1 kg University of 12:21:00 [facility] BMI 2020-10-14 19.03 kg/m2 University of 12:21:00 [facility] Branch Respiratory rate 2020-10-02 20 /min University of 06:35:00 [facility] Oxygen saturation 2020-10-02 97 /min University of in Arterial blood 06:35:00 [place] [facility] by Pulse oximetry Branch Systolic blood 2020-10-02 122 mm[Hg] University of pressure 04:53:00 [facility] Diastolic blood 2020-10-02 88 mm[Hg] University o f pressure 04:53:00 [facility] Heart rate 2020-10-02 133 /min University of 04:53:00 [facility] Body temperature 2020-10-02 37.28 Tayla University of 04:53:00 [facility] Body height 2020-10-02 170 cm University of 04:53:00 [facility] Body weight 2020-10-02 58.968 kg University of 04:53:00 [facility] BMI 2020-10-02 20.40 kg/m2 University of 04:53:00 [facility] Systolic blood 2020-09-27 98 mm[Hg] University of pressure 15:38:00 [facility] Diastolic blood 2020-09-27 64 mm[Hg] University o f pressure 15:38:00 [facility] Heart rate 2020-09-27 86 /min University of 15:38:00 [facility] Body temperature 2020-09-27 37.06 Tayla University of 15:38:00 [facility] Body height 2020-09-27 170.2 cm University of 15:38:00 [facility] Body weight 2020-09-27 59.104 kg University of 15:38:00 [facility] BMI 2020-09-27 20.41 kg/m2 University of 15:38:00 [facility] Oxygen saturation 2020-09-27 100 /min [facility] in Arterial blood 15:38:00 [facility] by Pulse oximetry Branch Systolic blood 2020-09-18 106 mm[Hg] University of pressure 21:45:00 [facility] Diastolic blood 2020-09-18 68 mm[Hg] University o f pressure 21:45:00 [facility] Heart rate 2020-09-18 101 /min University of 21:45:00 [facility] Body temperature 2020-09-18 36.22 Tayla University of 21:45:00 [facility] Respiratory rate 2020-09-18 18 /min University of 21:45:00 [facility] Oxygen saturation 2020-09-18 98 /min [facility] in Arterial blood 21:45:00 [facility] by Pulse oximetry Branch Body weight 2020-09-18 61.236 kg With one University of 10:59:00 blanket and [facility] sheet. Branch BMI 2020-09-18 21.14 kg/m2 University of 10:59:00 [facility] Body height 2020-09-13 170.2 cm University of 20:47:00 [facility] Systolic blood 2020-09-01 129 mm[Hg] University of pressure 11:00:00 [facility] Branch Diastolic blood 2020-09-01 86 mm[Hg] University o f pressure 11:00:00 [facility] Branch Heart rate 2020-09-01 102 /min University of 11:00:00 [facility] Body temperature 2020-09-01 37.67 Tayla University of 10:00:00 [facility] Branch Respiratory rate 2020-09-01 18 /min University of 10:00:00 [facility] Branch Oxygen saturation 2020-09-01 100 /min University of in Arterial blood 10:00:00 [facility] by Pulse oximetry Branch Body weight 2020-09-01 58.968 kg University of 06:45:00 [facility] BMI 2020-09-01 20.36 kg/m2 University of 06:45:00 [facility] Systolic blood 2020-08-24 124 mm[Hg] University of pressure 00:00:00 [facility] Diastolic blood 2020-08-24 90 mm[Hg] University o f pressure 00:00:00 [facility] Heart rate 2020-08-24 89 /min University of 00:00:00 [facility] Respiratory rate 2020-08-24 20 /min University of 00:00:00 [facility] Oxygen saturation 2020-08-24 100 /min University of in Arterial blood 00:00:00 [facility] by Pulse oximetry Branch Body temperature 2020-08-23 36.61 Tayla University of 22:27:00 [facility] Body weight 2020-08-23 58.968 kg University of 22:27: [facility] BMI 2020-08-23 20.36 kg/m2 University of 22:27:00 [facility] Systolic blood 2020-08-20 117 mm[Hg] University of pressure 16:22:00 [facility] Diastolic blood 2020-08-20 86 mm[Hg] University o f pressure 16:22:00 [facility] Heart rate 2020-08-20 129 /min University of 16:22:00 [facility] Body temperature 2020-08-20 36.89 Tayla University of 16:21:00 [facility] Branch Respiratory rate 2020-08-20 16 /min University of 16:21:00 [facility] Body height 2020-08-20 170.2 cm University of 16:21:00 [facility] Body weight 2020-08-20 57.607 kg University of 16:21: [facility] BMI 2020-08-20 19.89 kg/m2 University of 16:21:00 [facility] Systolic blood 2020-08-18 115 mm[Hg] University of pressure 04:00:00 [facility] Diastolic blood 2020-08-18 79 mm[Hg] University o f pressure 04:00:00 [facility] Heart rate 2020-08-18 104 /min University of 04:00:00 [facility] Respiratory rate 2020-08-18 17 /min University of 04:00:00 [facility] Oxygen saturation 2020-08-18 100 /min University of in Arterial blood 04:00:00 [facility] ryann by Pulse oximetry Branch Body temperature 2020-08-18 37.06 Tayla University of 00:44:00 [facility] Body weight 2020-08-18 56.7 kg University of 00:44:00 [facility] BMI 2020-08-18 19.58 kg/m2 University of 00:44:00 [facility] Systolic blood 2020-08-09 153 mm[Hg] University of pressure 15:40:00 [facility] Diastolic blood 2020-08-09 83 mm[Hg] University o f pressure 15:40:00 [facility] Heart rate 2020-08-09 143 /min University of 15:40:00 [facility] Body temperature 2020-08-09 36.83 Tayla University of 15:40:00 [facility] Body height 2020-08-09 170.2 cm University of 15:40:00 [facility] Body weight 2020-08-09 56.473 kg University of 15:40:00 [facility] BMI 2020-08-09 19.50 kg/m2 University of 15:40:00 [facility] Oxygen saturation 2020-08-09 100 /min University of in Arterial blood 15:40:00 [facility] ryann by Pulse oximetry Branch Systolic blood 2020-08-01 126 mm[Hg] University of pressure 13:03:00 [facility] Branch Diastolic blood 2020-08-01 76 mm[Hg] University o f pressure 13:03:00 [facility] Heart rate 2020-08-01 119 /min University of 13:03:00 [facility] Body temperature 2020-08-01 36.67 Tayla University of 13:03:00 [facility] Respiratory rate 2020-08-01 16 /min University of 13:03:00 [facility] Oxygen saturation 2020-08-01 99 /min [facility] in Arterial blood 13:03:00 [facility] by Pulse oximetry [place] Body weight 2020-07-23 70.308 kg [facility] 16:57:00 [facility] BMI 2020-07-23 24.28 kg/m2 [facility] 16:57:00 [facility] Systolic blood 2019-06-15 110 mm[Hg] [facility] pressure 18:22:00 [facility] Diastolic blood 2019-06-15 57 mm[Hg] [facility] pressure 18:22:00 [facility] Heart rate 2019-06-15 91 /min [facility] 18:22:00 [facility] Respiratory rate 2019-06-15 18 /min [facility] 18:22:00 [facility] Oxygen saturation 2019-06-15 98 /min [facility] in Arterial blood 18:22:00 [facility] by Pulse oximetry [place] Body temperature 2019-06-15 38 Tayla [facility] 16:54:00 [facility] Body weight 2019-06-15 83.915 kg [facility] 16:54:00 [facility] BMI 2019-06-15 28.98 kg/m2 [facility] 16:54:00 [facility] Procedures Procedure Date / Time Performing Clinician Source Performed AUTHORIZATION FOR RELEASE 2021-06-18 05:01:00 Doctor Unassigned, [facility] Name Medical [place] EXTERNAL PROVIDER RECORDS 2020-11-20 06:01:00 Doctor Unassigned, [facility] Name [facility] CBC WITH DIFF 2020-10-29 13:10:00 Leticia Hinson [facility] MAGNESIUM 2020-10-29 09:36:[facility]OLIC PANEL 2020-10-29 09:36:00 Mark Judy [facility] (NA, K, CL, CO2, GLUCOSE, [facility] BUN, CREATININE, CA) PHOSPHORUS 2020-10-28 10:00:00 Rena Moser [facility] MAGNESIUM 2020-10-28 10:00:00 Mark [facility] MET[facility]OLIC PAN[facility] 2020-10-28 10:[facility]00 [facility] (NA, K, CL, CO2, GLUCOSE, [facility] BUN, CREATININE, CA) CBC WITH DIFF 2020-10-28 09:59:00 Judy Flores [facility] 2020-10-27 07:05[facility] 2020-10-27 07:05[facility] ([facility], K, CL, CO2, GLUCOSE, Medica l Branch BUN, CREATININE, CA) CBC WITH DIFF 2020-10-27 07:05[facility] 2020-10-27 07:05:00 Suraj [facility] URINE CULTURE 2020-10-27 07:05:00 Suraj [facility] CBC WITH DIFF 2020-10-26 11:43:00 [facility] 2020-10-26 03:41:00 [facility] 2020-10-26 03:41:00 [facility] BASIC MET[facility]OLIC PANEL 2020-10-26 03:41:00 [facility] (NA, K, CL, CO2, GLUCOSE, Medica l Branch BUN, CREATININE, CA) CBC WITH DIFF 2020-10-26 03:41:00 [facility] COVID-19 (ID NOW RAPID 2020-10-25 01:26:00 [facility] LAB ONLY COVID 2020-10-25 01:26:00 [facility] BASIC METABOLIC PANEL 2020-10-24 22:27:00 Leticia Hinson [facility] (NA, K, CL, CO2, GLUCOSE, Medica l Branch BUN, CREATININE, CA) CBC WITH DIFF 2020-10-24 22:27:00 Leticia Hinson [facility] CT ABDOMEN PELVIS W 2020-10-24 21:20:40 [facility] BASIC METABOLIC PANEL 2020-10-17 23:11:00 PhataDarren mcgee [facility] (NA, K, CL, CO2, GLUCOSE, Medica l Branch BUN, CREATININE, CA) CLOSTRIDIUM DIFFICILE 2020-10-17 17:24:00 Rena Moser [facility] TOXIN [facility] MRSA / MSSA SCREEN BY 2020-10-15 01:09:00 Mandeep Garnica [facility] PHILL BERMUDEZ [facility] SURGICAL PATHOLOGY EXAM 2020-10-14 15:01:00 Kalee [facility] EXPLORATORY LAPAROTOMY 2020-10-14 13:10:00 Kalee [facility] ILEOSTOMY TAKEDOWN 2020-10-14 13:10:00 Kalee [facility] ASSIGNMENT OF BENEFITS 2020-10-14 11:29:56 Doctor Unassigned, [facility] Harvest [facility] URINALYSIS 2020-10-02 05:22:00 [facility] LIPASE 2020-10-02 05:19:00 [facility] HEPATIC FUNCTION PANEL 2020-10-02 05:19:00 Ebony Chakraborty [facility] ([id number]) (ALB,T.PRO,BILI Medical Branch T,BU/BC,ALT,AST,ALK PHOS) BASIC METABOLIC PANEL 2020-10-02 05:19:00 Ebony Chakraborty [facility] (NA, K, CL, CO2, GLUCOSE, Medica l Branch BUN, CREATININE, CA) CBC WITH DIFF 2020-10-02 05:19:00 [facility] CONSENT/REFUSAL FOR 2020-10-02 04:45:02 Doctor Unassmaria del carmen, [facility] DIAGNOSIS AND TREATMENT Har[facility] COMP. METABOLIC PANEL 2020-09-16 12:00:00 Roby Jean [facility] ([id number]) Medical Branch COMP. METABOLIC PANEL 2020-09-15 09:58:00 Roby Jean [facility] ([id number]) Medical Branch CREATINE KINASE 2020-09-14 16:03:00 Roby Jean Steen o f [facility] HEPATIC FUNCTION PANEL 2020-09-14 16:03:00 Roby Jean [facility] ([id number]) (ALB,T.PRO,[facility] [place] T,BU/BC,ALT,AST,ALK PHOS) BASIC METABOLIC PANEL 2020-09-14 16:03:00 Roby Jean [facility] (NA, K, CL, CO2, GLUCOSE, Medica l Branch BUN, CREATININE, CA) HEPATITIS B SURFACE 2020-09-14 10:15:00 [facility] ANTIBODY [facility] HEPATITIS B SURFACE 2020-09-14 10:15[facility] HCV BY PCR 2020-09-14 10:15:00 [facility] HB ECG ROUTINE & RHYTHM 2020-09-13 18:17:57 [facility] MAGNESIUM 2020-09-13 18:16:00 [facility] TROPONIN I 2020-09-13 18:16:00 Delta [facility] LIPASE 2020-09-13 17:15:00 Delta [facility] COMP. METABOLIC PANEL 2020-09-13 17:15:00 Delta Hellen [facility] ([id number]) [facility] CBC WITH DIFF 2020-09-13 17:15:00 Delta [facility] XR ABDOMEN 2 VW 2020-09-13 16:44:14 Delta [facility] EMERGENCY DEPARTMENT 2020-09-13 05:01:00 Doctor Unassigned, [facility] DOCUMENTS [facility] Medical Branch CT ABDOMEN PELVIS W 2020-09-01 08:02:47 Shayla Munoz [facility] Branch LIPASE 2020-09-01 07:10:00 Shayla Munoz [facility] COMP. METABOLIC PANEL 2020-09-01 07:10:00 Shayla Munoz [facility] ([id number]) Medical Branch CBC WITH DIFF 2020-09-01 07:10:00 Shayla Munoz [facility] CT ABDOMEN PELVIS W 2020-08-24 01:30:05 Matthias Silvestre [facility] CONTRAST [facility] LIPASE 2020-08-23 23:52:00 Matthias Silvestre [facility] CBC WITH DIFF 2020-08-23 23:52:00 Matthias Silvestre [facility] CONSENT/REFUSAL FOR 2020-08-23 22:12:59 Doctor Vanessa [facility] DIAGNOSIS AND TREATMENT [facility] [place] CT ABDOMEN PELVIS W 2020-08-18 02:24:35 Shayla Munoz [facility] CONTRAST Medical Branch LIPASE 2020-08-18 01:23:00 Shayla Munoz [facility] COMP. METABOLIC PANEL 2020-08-18 01:23:00 Shayla Munoz [facility] ([id number]) Medical Branch CBC WITH DIFF 2020-08-18 01:23:00 Shayla Munoz [facility] COVID-19 (ID NOW RAPID 2020-08-18 01:23:00 [facility] TESTING) Medical Branch NOTICE OF PRIVACY 2020-08-18 00:35:45 Doctor Vanessa [facility] PRACTICES [facility] [place] CONSENT/REFUSAL FOR 2020-08-18 00:31:36 Doctor Vanessa, [facility] DIAGNOSIS AND TREATMENT [facility] [place] AUTHORIZATION TO RELEASE 2020-08-09 05:01:00 Doctor Vanessa, [facility] PHI TO [facility] Name Medical [place] PHOSPHORUS 2020-08-01 08:47:00 [facility]UM 2020-08-01 08:47:00 [facility] BASIC METABOLIC PANEL 2020-08-01 08:47:00 [facility] (NA, K, CL, CO2, GLUCOSE, Medica l Branch BUN, CREATININE, CA) CBC WITH DIFF 2020-08-01 08:47:00 Yelena [facility] PHOSPHORUS 2020-07-31 10:06:00 [facility] MAGNESIUM 2020-07-31 10:06:00 [facility] BASIC METABOLIC PANEL 2020-07-31 10:06:00 [facility] (NA, K, CL, CO2, GLUCOSE, Medica l Branch BUN, CREATININE, CA) CBC WITH DIFF 2020-07-31 10:06:00 [facility] PHOSPHORUS 2020-07-30 09:29:00 [facility] MAGNESIUM 2020-07-30 09:29:00 [facility] BASIC METABOLIC PANEL 2020-07-30 09:29:00 [facility] (NA, K, CL, CO2, GLUCOSE, Medica l Branch BUN, CREATININE, CA) BASIC METABOLIC PANEL 2020-07-29 10:11:00 [facility] (NA, K, CL, CO2, GLUCOSE, Medica l Branch BUN, CREATININE, CA) CBC WITHOUT DIFF 2020-07-29 10:11:00 [facility] PROTHROMBIN TIME / INR 2020-07-29 10:11:00 [facility] ACTIVATED PARTIAL 2020-07-29 10:11:00 [facility] FIBRINOGEN 2020-07-29 10:11:00 [facility] BLUE 2020-07-29 10:11:00 [facility] EXTRA TUBE LT. GREEN 2020-07-29 10:11:00 Kalee [facility] XR KUB 2020-07-29 09:55:00 Mark [facility] CBC WITHOUT DIFF 2020-07-28 10:15:00 Devan [facility] BASIC METABOLIC PANEL 2020-07-28 09:47:00 Farooq Hartman [facility] (NA, K, CL, CO2, GLUCOSE, Jose Angel [facility] Branch BUN, CREATININE, CA) BASIC METABOLIC PANEL 2020-07-27 10:39:00 Farooq Hartman [facility] (NA, K, CL, CO2, GLUCOSE, [facility] BUN, CREATININE, CA) CBC WITHOUT DIFF 2020-07-27 10:39:00 Farooq Hartman [facility] BASIC METABOLIC PANEL 2020-07-26 07:53:00 Farooq Hartman [facility] (NA, K, CL, CO2, GLUCOSE, [facility] BUN, CREATININE, CA) CBC WITHOUT DIFF 2020-07-26 07:53:00 Devan [facility] MAGNESIUM 2020-07-26 00:13:00 Devan [facility] BASIC METABOLIC PANEL 2020-07-26 00:13:00 Farooq Hartman [facility] (NA, K, CL, CO2, GLUCOSE, [facility] BUN, CREATININE, CA) CBC WITHOUT DIFF 2020-07-26 00:13:00 Devan [facility] PROTHROMBIN TIME / INR 2020-07-26 00:13:00 Devan [facility] ACTIVATED PARTIAL 2020-07-26 00:13:00 Farooq Hartman [facility] THRMPLAS [facility] SURGICAL PATHOLOGY EXAM 2020-07-25 22:08:00 Kalee [facility] ILEOSTOMY 2020-07-25 20:18:00 Kalee [facility] ILEOCECECTOMY 2020-07-25 20:18:00 Kalee [facility] BASIC METABOLIC PANEL 2020-07-25 11:35:00 Parag [facility] (NA, K, CL, CO2, GLUCOSE, Medica l Branch BUN, CREATININE, CA) CBC WITHOUT DIFF 2020-07-25 11:35:00 Akshat Tuttle [facility] ABORH CONFIRMATION 2020-07-25 04:37:00 [place] Negro [facility] HB ABO GROUPING 2020-07-25 04:12:00 Oliver Nunez [facility] BASIC METABOLIC PANEL 2020-07-24 07:34:00 Dc Jay [facility] (NA, K, CL, CO2, GLUCOSE, Medica l Branch BUN, CREATININE, CA) CBC WITHOUT DIFF 2020-07-24 07:34:00 Dc Jay [facility] XR ABDOMEN 1 VW 2020-07-24 06:56:00 Dc Jay [facility] EKG-12 LEAD 2020-07-24 06:39:07 Farooq [facility] COVID-19 (ID NOW RAPID 2020-07-24 00:26:00 Merced[place] Negro [facility] TESTING) Medical Branch LACTIC ACID WHOLE BLOOD 2020-07-24 00:24:00 Merced[place] Negro [facility] BLOOD CULTURE SCREEN 2020-07-23 21:41:00 Merced[place] Negro [facility] LACTIC ACID WHOLE BLOOD 2020-07-23 21:41:00 Merced[place] Negro [facility] CT ABDOMEN PELVIS W 2020-07-23 20:56:34 [facility] [facility] 2020-07-23 19:31:00 [place] Negro [facility] HEPATIC FUNCTION PANEL 2020-07-23 19:31:00 Mercedez Negro [facility] ([id number]) (ALB,T.PRO,BILI Medical Branch T,BU/BC,ALT,AST,ALK PHOS) BASIC METABOLIC PANEL 2020-07-23 19:31:00 [place] Negro [facility] (NA, K, CL, CO2, GLUCOSE, Medica l Branch BUN, CREATININE, CA) CBC WITH DIFF 2020-07-23 19:31:00 [place] Negro [facility] URINALYSIS 2020-07-23 19:19:00 Mercedez Negro [facility] NOTICE OF PRIVACY 2020-07-23 16:48:03 Doctor Aliciaigned, [facility] PRACTICES [facility] CONSENT/REFUSAL FOR 2020-07-23 16:47:54 Doctor Vanessa, [facility] DIAGNOSIS AND TREATMENT [facility] AGREEMENTS AUTHORIZATIONS 2020-07-23 05:01:00 Doctor Vanessa, [facility] AND IRREVOCABLE [facility] [place] ASSIGNMENTS (FORM 2000) CT ABDOMEN PELVIS W 2019-06-15 18:45:34 Mary Jo Dukes [facility] LACTIC ACID WHOLE BLOOD 2019-06-15 17:46:00 Mary Jo Dukes [facility] LIPASE 2019-06-15 17:30:00 [facility] Jo Dukes [facility] HEPATIC FUNCTION PANEL 2019-06-15 17:30:00 Mary Jo Dukes [facility] ([id number]) (ALB,T.PRO,BIL Medical Branch T,BU/BC,ALT,AST,ALK PHOS) BASIC METABOLIC PANEL 2019-06-15 17:30:00 [facility] (NA, K, CL, CO2, GLUCOSE, Medica l Branch BUN, CREATININE, CA) CBC WITH DIFFERENTIAL 2019-06-15 17:30:00 Mary Jo Dukes [facility] POCT TEST 2019-06-15 17:24:00 Mary Jo Dukes [facility] URINALYSIS 2019-06-15 17:22:00 Mary Jo Dukes [facility] NOTICE OF PRIVACY 2019-06-15 16:39:09 Doctor Unassigned, [facility] PRACTICES [facility] [place] CONSENT/REFUSAL FOR 2019-06-15 16:38:53 Doctor Unassigned, [facility] DIAGNOSIS AND TREATMENT [facility] Plan of Care Planned Activity Planned Date Details Comments Source Future Scheduled Test 2022-08-15 00:00:00 IMM Influenza [facility] Seasonal (>/= 19 yrs) [code = IMM Influenza Seasonal (>/= 19 yrs)] Future Scheduled Test 2022-08-15 00:00:00 IMM Influenza [facility] Seasonal (>/= 19 yrs) [code = IMM Influenza Seasonal (>/= 19 yrs)] Future Scheduled Test 2014 00:00:00 Breast Cancer Scrn [facility] (Yearly) [code = Breast Cancer Scrn (Yearly)] Future Scheduled Test 2014 00:00:00 [facility] ([facility] [code = Breast Cancer Scrn (Yearly)] Future Scheduled Test 2004 00:00:00 Screening for [facility] malignant neoplasm of cervix (procedure) [code = 253247190] Future Scheduled Test 2004 00:00:00 Screening for [facility] malignant neoplasm of cervix (procedure) [code = 575553579] Future Scheduled Test 2004 00:00:00 Screening for [facility] malignant neoplasm of cervix (procedure) [code = 741927001] Future Scheduled Test 2004 00:00:00 Screening for [facility] malignant neoplasm of cervix (procedure) [code = 834215500] Future Scheduled Test 1976-04-08 00:00:00 COVID-19 Vaccine (#1) [facility] [code = COVID-19 Vaccine (#1)] Future Scheduled Test 1976-04-08 00:00:00 COVID-19 Vaccine (#1) [facility] [code = COVID-19 Vaccine (#1)] Future Scheduled Test 1974 00:00:00 Fluoride Varnish [facility] [code = Fluoride Varnish] Future Scheduled Test 1974 00:00:00 Fluoride Varnish [facility] [code = Fluoride Varnish] Encounters Start End Encounter Admission Attending Care Care Encounter Source Date/Time Date/Time Type Type Clinicians Facility Department ID 2021-09-13 Emergency X [facility] J[facility] [id number] Univers 10:26:40 ity of [facility] 2021-09-13 Emergency [facility] [id number] Univers 06:14:00 ity of [facility] 2021-09-13 Outpatient [facility]AL[facility] [id number] Univers 05:23:22 ity of [facility] 2021-09-13 Emergency [facility] [id number] Univers 04:35:58 ity of [facility] 2021-09-13 Emergency [facility] [id number] Univers 02:03:39 ity of [facility] 2021-09-13 Emergency [facility] [id number] Univers 00:06:17 ity [facility] 2021-09-12 Emergency [facility] [id number] Univers 23:33:58 ity of [facility] 2021-09-12 Emergency [facility] [id number] Univers 22:11:08 ity [facility] 2021-09-12 Emergency [facility] [id number] Univers [facility]:54[facility] 2021-03-20 Inpatient HCAPM JOSE ROBERTO [id number] [facility] 10:26:00 41 [facility] 2021-01-10 Inpatient HCAWU JOSE ROBERTO [id number] [facility] 20:22:[address] [place] [address] 2021-06-18 2021-06-18 Orders Doctor LETICIA Chang2.840.114 [id number] Univers 00:00:00 00:00:00 Only Unassigned, ARMAND 350.1.13.10 ity of [facility] 4.2.7.2.686 Juan as [phone] [facility] 009 Branch 2021-05-31 2021-05-31 Emergency E KAPADIA, MHNW MHNW 7504 MHNW 11:46:00 20:16:00 DELORIS 2021-03-20 2021-03-20 Outpatient Rcih, HCACL HCACL [id number] [facility] 18:43:30 18:43:30 Safi 05 [facility] 2021-01-03 2021-01-03 Patient Anne Fuentes 1.2.840.114 [id number] Univers 00:00:00 00:00:00 Outreach Mercedez Narayanan 350.1.13.10 it[place] [phone] [facility] 403 Branch 2020-11-26 2020-11-26 Outpatient [facility] [id number] [id number] Univers 09:00:00 09:00:00 ORPHEUS [id number] ity [facility] 2020-11-26 2020-11-26 Outpatient [facility] [id number] Univers 09:00:00 09:00:00 ORPHEUS ity [facility] 2020-11-26 2020-11-26 Telephone Darren Chun [facility] 1.2.840.114 [id number] Univers 00:00:00 00:00:00 Health 350.1.13.10 it [place] - [phone] Med ical [facility] 408 Branch 2020-11-22 2020-11-22 Outpatient R [facility] [id number] [id number]-20 Univers 15:30:00 15:30:00 ORPHEUS [id number] ity [facility] 2020-11-22 2020-11-22 Outpatient R [facility] [id number] Univers 15:30:00 15:30:00 ORPHEUS ity [facility] 2020-11-20 2020-11-20 Orders Doctor LETICIA 1.2.840.114 [id number] Univers 00:00:00 00:00:00 Only Unassigned, ARMAND 350.1.13.10 ity of [facility] 4.2.7.2.686 Juan as [phone] [facility] 009 Branch 2020-11-19 2020-11-19 Outpatient R [facility] [id number] 6P-20 Univers 11:15:00 11:15:00 ORPHMAURO [id number] ity of [facility] 2020-11-19 2020-11-19 Outpatient R [facility] [id number] Univers 11:15:00 11:15:00 [facility] 2020-11-12 2020-11-12 Patient Deepika Ramirez 1.2.840.114 [id number] Univers 00:00:00 00:00:00 Outreach E Narayanan 350.1.13.10 i [place] [id number] [address] 2020-11-11 2020-11-11 Telephone [facility] 1.2.840.114 [id number] Univers 00:00:00 00:00:00 Mehrdad [facility] 350.1.13.10 it[place] - [phone] [facility] ical [address] 2020-11-05 2020-11-05 Telephone Darren Chun [facility] 1.2.840.114 [id number] Univers 00:00:00 00:00:00 SPECIALTY 350.1.13.10 it[place] AT [phone] Ga dical VICTORY [address] [place] [address] 2020-11-01 2020-11-01 Patient Deepika Ramirez 1.2.840.114 [id number] Univers 00:00:00 00:00:00 Outreach E Narayanan 350.1.13.10 i [place] [phone] [address] 2020-10-31 2020-10-31 Transition DamonAnne marquez 1.2.840.114 802 [id number] [facility] 00:00:00 00:00:00 of Care Lynda Narayanan 350.1.13.10 ity of [place] [phone] [place] [address] Branch 2020-10-31 2020-10-31 Transition Sabi Damonn 1.2.840.114 802 [id number] 00:00:00 00:00:00 of Care Lynda Narayanan 350.1.13.10 [place] 4.2.7.2.686 [id number] [facility] 2020-10-24 2020-10-30 [facility] 1.2.840.114 [id number] [facility] 13:38:00 19:38:00 Encounter [place] 350.1.13.10 ity of Hospital 4.2.7.2.686 [place] [phone] [place] [id number] [place] 2020-10-24 2020-10-30 [facility] 1.2.840.114 [id number] 13:38:00 19:38:00 Encounter [facility] 350.1.13.10 Hospital 4.2.7.2.686 [id number] [facility] 2020-10-21 2020-10-21 Transition DamonSabi marquezn 1.2.840.114 [id number] [facility] 00:00:00 00:00:00 of Care Lynda Narayanan 350.1.13.10 ity of [place] [phone] [place] [address] Branch 2020-10-21 2020-10-21 Transition DamonSabi marquezn 1.2.840.114 800 [id number] 00:00:00 00:00:00 of Care Lynda Narayanan 350.1.13.10 [place] 4.2.7.2.686 [id number] [facility] 2020-10-14 2020-10-19 [facility] 1.2.840.114 [id number] [facility] 05:48:00 15:50:00 Encounter [place] 350.1.13.10 ity of Hospital 4.2.7.2.686 [place] as [phone] [facility] 099 Branch 2020-10-14 2020-10-19 Hospital Darren Chun 1.2.840.114 7 [id number] 05:48:00 15:50:00 Encounter [facility] 350.1.13.10 Hospital 4.2.7.2.686 [id number] 099 2020-10-16 2020-10-16 Patient Deepika Ramirez 1.2.840.114 [id number] Univers 00:00:00 00:00:00 Outreach E Narayanan 350.1.13.10 i ty [place] [id number] [facility] 403 Branch 2020-10-16 2020-10-16 Patient Deepika Ramirez 1.2.840.114 [id number] 00:00:00 00:00:00 Outreach E Narayanan 350.1.13.10 [place] 4.2.7.2.686 [id number] [facility] 2020-10-14 2020-10-14 Orders Doctor LETICIA 1.2.840.114 [id number] [facility] 00:00:00 00:00:00 Only Unassigned, ARMAND 350.1.13.10 ity of [facility] 4.2.7.2.686 [place] as [phone] [facility] 009 Branch 2020-10-14 2020-10-14 Orders Doctor KELLY 1.2.840.114 [id number] 00:00:00 00:00:00 Only Unassigned, [place] 350.1.13.10 [facility] 4.2.7.2.686 [id number] 009 2020 2020 Laboratory Only, Adc Test [facility] 1.2.840. 114 [id number] [facility] 14:56:46 15:11:46 Only Darren Chun 350.1.13.10 ity of [place] [phone] [facility] 353 Branch 2020 2020 Laboratory Only, Adc [facility] 1.2.840.114 7 [id number] 14:56:46 15:11:46 Only Test [place] 350.1.13.10 [place] 4.2.7.2.686 [place] [id number] 353 2020 2020 Outpatient [facility] [id number] -[id number] Univers 14:45:00 14:45:00 [id number] ity of [facility] 2020 2020 Outpatient R [facility] [id number] Univers 14:45:00 14:45:00 ity of [facility] 2020-10-07 2020-10-07 Patient Deepika Ramirez Anne 1.2.840.114 [id number] 00:00:00 00:00:00 Outreach E Narayanan 350.1.13.10 [place] 4.2.7.2.686 [id number] 403 2020-10-07 2020-10-07 Patient Deepika Ramirez Anne 1.2.840.114 [id number] Univers 00:00:00 00:00:00 Outreach E Narayanan 350.1.13.10 i ty of [place] [phone] [facility] 403 Branch 2020-10-01 2020-10-02 Emergency [facility] 1.2.840.114 [id number] Univers 23:00:00 01:14:00 Ebony Abernathy 350.1.13.10 ity of [place].2.[place] [id number] [facility] 084 Branch 2020-10-01 2020-10-01 Transition Anne Damon 1.2.840.114 [id number] Univers 00:00:00 00:00:00 of Care Lynda Narayanan 350.1.13.10 ity of [place] [phone] [facility] 403 Branch 2020-09-30 2020-09-30 Telephone Darren Chun [facility] 1.2.840.114 [id number] Univers 00:00:00 00:00:00 Health 350.1.13.10 it [place] - [phone] Med ical [address] 2020-09-27 2020-09-27 Office Kalee [facility] 1.2.840.114 [id number] Univers 09:20:41 09:35:41 Visit Health 350.1.13.10 it [place] - [phone] [address] 2020-09-27 2020-09-27 Outpatient R KALEE [facility] [id number] 386P-[id number] Univers 09:30:00 09:30:00 [id number] ity of [facility] 2020-09-27 2020-09-27 Outpatient R KALEE [facility] [id number] Univers 09:30:00 09:30:00 ity of [facility] 2020-09-24 2020-09-24 Telephone Kalee [facility] 1.2.840.114 [id number] Univers 00:00:00 00:00:00 Health 350.1.13.10 it y of Cancer 4.2.7.2.686 [facility] - [phone] Med [address] 2020-09-19 2020-09-19 Transition Anne Damon 1.2.840.114 [id number] Univers 00:00:00 00:00:00 of Care Lynda Naaryanan 350.1.13.10 ity of [place] [phone] [facility] 403 Branch 2020-09-19 2020-09-19 Patient Jamse Deepika Anne 1.2.840.114 [id number] Univers 00:00:00 00:00:00 Outreach E Narayanan 350.1.13.10 i ty of [place] [id number] [facility] 403 Branch 2020-09-13 2020-09-18 Hospital Hellen Sorenson [facility] 1.2.840.1 14 [id number] Univers 10:29:00 17:07:00 Encounter Roby Jean 350.1.13.10 ity of [place]2.[place] [phone] [facility] 081 Branch 2020-09-17 2020-09-17 Patient Deepika Ramirezmamie 1.2.840.114 [id number] Univers 00:00:00 00:00:00 Outreach E Narayanan 350.1.13.10 i ty [place] [phone] [address] 2020-09-16 2020-09-16 Patient Deepika Ramirezmamie 1.2.840.114 [id number] Univers 00:00:00 00:00:00 Outreach E Narayanan 350.1.13.10 i ty of [place] [id number] [address] 2020-09-16 2020-09-16 Patient Sabi Fuentsemamie 1.2.840.114 [id number] Univers 00:00:00 00:00:00 Outreach Mercedez W Narayanan 350.1.13.10 ity of [place] [id number] [address] 2020-09-13 2020-09-13 Patient Deepika Ramirezmamie 1.2.840.114 [id number] Univers 00:00:00 00:00:00 Outreach E Narayanan 350.1.13.10 i ty of [place] [id number] [address] 2020-09-12 2020-09-12 Transition Anne Damon 1.2.840.114 [id number] Univers 00:00:00 00:00:00 of Care Lynda Narayanan 350.1.13.10 ity of [place] [phone] [address] 2020-09-12 2020-09-12 Patient Deepika Ramirezmamie 1.2.840.114 79 [id number] Univers 00:00:00 00:00:00 Outreach E Narayanan 350.1.13.10 i ty of [place] [phone] [address] 2020-09-12 2020-09-12 Patient Deepika Ramirez Anne 1.2.840.114 79 [id number] Univers 00:00:00 00:00:00 Outreach E Narayanan 350.1.13.10 i ty of [place] [phone] [facility] [address] [place] 2020-09-12 2020-09-12 Patient Anne Fuentes 1.2.840.114 [id number] Univers 00:00:00 00:00:00 Outreach Mercedez Narayanan 350.1.13.10 ity of [place] [id number] [facility] [address] [place] 2020-09-12 2020-09-12 Telephone [facility] 1.2.840.114 [id number] Univers 00:00:00 00:00:00 [place] SPECIALTY 350.1.13.10 ity of CARE [place].2.[place] AT [phone] Ga maximus LARA 2 [facility] 2020-09-06 2020-09-06 Outpatient R KALEE [facility] [id number] [id number] Univers 11:00:00 11:00:00 [id number] ity of [facility] 2020-09-06 2020-09-06 Outpatient R KALEE [facility] [id number] Univers 11:00:00 11:00:00 ity of [facility] 2020-09-03 2020-09-03 Outpatient R [facility] [id number] Univers 11:00:00 11:00:00 [id number] ity of [facility] 2020-09-03 2020-09-03 Outpatient R [facility] [id number] Univers 11:00:00 11:00:00 ity of [facility] 2020-09-01 2020-09-01 Emergency [facility] 1.2.461.327 [id number] Univers 01:42:00 07:20:00 Shayla Abernathy 350.1.13.10 ity of [place] [id number] [facility] 084 [place] 2020-08-29 2020-08-29 Telephone [facility] 1.2.840.114 [id number] Univers 00:00:00 00:00:00 Mehrdad Hawkins 350.1.13.10 ity of Cancer 4.2.7.2.686 [facility] - [phone] [facility] 188 Branch 2020-08-28 2020-08-28 Telephone Kalee [facility] 1.2.840.114 [id number] Univers 00:00:00 00:00:00 Health 350.1.13.10 it y of Cancer 4.2.7.2.686 [facility] - [phone] [facility] 408 Branch 2020-08-23 2020-08-23 [facility] 1.2.004.011 [id number] Univers 17:35:00 22:19:00 Matthias Abernathy 350.1.13.10 i ty of [place] 4.2.7.2.686 [facility] [id number] [facility] 084 Branch 2020-08-20 2020-08-20 Nurse AnthonyDeepika [facility] 1.2.840.114 [id number] Univers 11:14:50 12:08:13 Visit PersonDaquan HEALTH 350.1.13.10 ity of CLINICS 4.2.7.2.686 [facility] [id number] [facility] 188 Branch 2020-08-20 2020-08-20 Outpatient R [facility] [id number] -[id number] Univers 11:00:00 11:00:00 ity of [facility] 2020-08-20 2020-08-20 Outpatient R [facility] [id number] Univers 11:00:00 11:00:00 ity of [facility] 2020-08-20 2020-08-20 Telephone Kalee [facility] 1.2.840.114 [id number] Univers 00:00:00 00:00:00 Health 350.1.13.10 it y of Cancer 4.2.7.2.686 [facility] - [phone] [facility] 408 Branch 2020-08-17 2020-08-18 [facility] 1.2.784.964 [id number] Univers 19:34:00 00:56:00 Shayla Abernathy 350.1.13.10 ity of [place] 4.2.7.2.686 [facility] [id number] [facility] 084 Branch 2020-08-09 2020-08-09 Office Kalee [facility] 1.2.840.114 [id number] Univers 10:32:05 10:47:05 Visit Health 350.1.13.10 it [place] - [phone] Med [facility] 408 Branch 2020-08-09 2020-08-09 Outpatient R DEIDRACandida [facility] [id number] Univers 10:45:00 10:45:00 ity of [facility] 2020-08-09 2020-08-09 Orders Doctor LETICIA 1.2.840.114 [id number] Univers 00:00:00 00:00:00 Only Unassigned, ARMAND 350.1.13.10 ity of [facility] 4.2.7.2.686 Juan as [phone] [facility] 009 Branch 2020-08-05 2020-08-05 [facility]phone [facility] 1.2.840.114 [id number] Univers 00:00:00 00:00:00 Health 350.1.13.10 it y of [place].2.[place] - [phone] [facility] 408 Branch 2020-08-02 2020-08-02 Transition Anne Ramirez 1.2.840.114 [id number] Univers 00:00:00 00:00:00 of Care Destinee Narayanan 350.1.13.10 i ty of [place] [phone] [facility] 403 Branch 2020-07-23 2020-08-01 Hospital Mercedez Negro 1.2.840 .114 [id number] Univers 11:58:00 17:47:00 Encounter Shayla Munoz 350.1.13.10 ity of [facility] 4.2.7.2.686 [facility] [phone] Medical 091 Branch 2020-07-23 2020-07-23 Emergency [facility] ERT [id number] Univers 11:58:00 11:58:00 MERCEDEZ scott of [facility] 2020-07-23 2020-07-23 Orders Doctor KELLY 1.2.840.114 [id number] Univers 00:00:00 00:00:00 Only Unassigned, ARMAND 350.1.13.10 ity of [facility] 4.2.7.2.686 [facility] [phone] [place] [address] Branch 2019-12-09 2019-12-09 Emergency E MHSE MHSE 7503 MH 09:16:00 09:16:00 [facility] 2019-06-15 2019-06-15 Emergency Roseline, [facility] 1.2.840.114 [id number] Univers 11:46:39 15:08:00 Mary Jo Abernathy 350.1.13.10 ity [facility] 4.2.7.2.686 [facility] [phone] [address] Results Test Description Test Time Test Comments Results Result [facility] e Comments - CT ABD PELVIS 2021-03-20 W/CONT 13:55:00 [facility] 1975 Sex: F Name: EDEN CHAKRABORTY [facility] : 1975 Age/S: 45 / F [address] [address] [facility] Unit #: [id number] Loc: [place] [address] Phys: Lemuel Villanueva DO Acct: [id number] Dis Date: Status: REG ER PHONE #: [phone] Exam Date: 03/20/2021 1335 FAX #: Reason: epigastric pain, h/o Crohn's, SBO EXAMS: CPT: [id number] CT ABD PELVIS W/CONT 07878 Site ID: [id number] CLINICAL HISTORY: Epigastric abdominal [...] joint arthritis. IMPRESSION: No acute findings at 3753 Reported and signed by: Kang Bates M.D. PAGE 1 Signed Report (CONTINUED) Name: EDEN CHAKRABORTY : 1975 Age/S: 45 / F [address] [address] [facility] Unit #: [id number] Loc: [place] [address] Phys: Lemuel Villanueva DO Acct: [id number] Dis Date: Status: REG ER PHONE #: [phone] Exam Date: 03/20/2021 1332 FAX #: Reason: epigastric pain, h/o Crohn's, SBO EXAMS: CPT: [id number] CT ABD PELVIS W/CONT 47979 <Continued> CC: Lemuel Villanueva DO Technologist:Miryam Anthony, RT(R)(CT) CTDI: DLP: Trnscb Date/Time: 03/20/2021 (0527) [email or web address] Orig Print D/T: S: 03/20/2021 (1380) PAGE 2 Signed Report - XR RIBS UNI 2021-03-20 W/CXR 3+V LT 13:47:00 [facility] : 1975 Sex: F Name: EDEN CHAKRABORTY : 1975 Age/S: 45 / F [address] [address] [facility] Unit #: [id number] Loc: [place] [address] Phys: Lemuel Villanueva DO Acct: [id number] Dis Date: Status: REG ER PHONE #: [phone] Exam Date: 03/20/2021 1231 FAX #: Reason: left rib pain EXAMS: CPT: [id number] XR RIBS UNI W/CXR 3+[place] [address] Fluoro Time: DAP (Gy m2): Air Kerma [...] CHAKRABORTY : 1975 Age/S: 45 / F [address] [address] [facility] Unit #: [id number] Loc: [place] [address] Phys: Lemuel Villanueva DO Acct: [id number] Dis Date: Status: REG ER PHONE #: [phone] Exam Date: 03/20/2021 1231 FAX #: Reason: left rib pain EXAMS: CPT: [id number] XR RIBS UNI W/CXR 3+[place] [address] Fluoro Time: DAP (Gy m2): Air Kerma (mGy): <Continued> Technologist: Cady Pendleton, RT(R)(MR) Trnscb Date/Time: 03/20/2021 (4788) [email or web address] Orig Print D/T: S: 03/20/2021 (3343) PAGE 2 Signed Report HCG SERUM 2021-03-20 12:51:00 Test Item Value Reference Range Interpretation Comme nts HCG SERUM (test code = HCG) < 1 mi-IU/ML 0-6 N 0 - 6 NOT > 6 SUGGESTIVE OF EARLY RISES TWO FOLD EVERY 2 DAYS; SUGGEST R ECONFIRMING AFTER 2 DAYS. 150,000-2 00,[address] TRIMESTER 10,000 - 50,000 2ND & 3RD TRIMESTER HEPATIC FUNCTION [id number] 12:49:00 Test Item Value Reference Range Interpretation [...] N code = ALKP) Completed by Nursing: [id number] 12:49:00 Test Item Value Reference Range Interpretation Comments LIPASE (test code = LIP) 77 Unit/L 114-286 L Completed by Nursing: [id number] 12:49:00 Test Item Value Reference Range Interpretation [...] may tarun yby method. Completed by Nursing: NOBASIC METABOLIC [id number] 12:49:00 Test Item Value Reference Range Interpretation [...] 8.5 MG/DL 8.5-10.1 N Completed by Nursing: NOPROTHROMBIN [id number] 12:25:00 Test Item Value Reference Range Interpretation Comments PT PATIENT (test code = PTP) 10.7 SECONDS 9.3-12.9 N INTERNATIONAL NORMAL RATIO 0.96 INR Unit 0.8-1.2 N (test code = INR) CBC W/AUTO [id number] 12:23:00 Test Item Value Reference Range Interpretation [...] = MDIFF) UA RFLX MICR CULT IF [id number] 12:18:00 Test Item Value Reference Range Interpretation [...] URINE: CLEAN CATCHUA RFLX MICR CULT IF [id number] 12:18:00 Test Item Value Reference Range Interpretation [...] RiskForSepsis-no oth srcSOURCE OF URINE: CLEAN CATCHLACTIC [id number] 11:59:00 Test Item Value Reference Range Interpretation Comments LACTIC ACID (test code = LACT) 1.3 mmol/L 0.4-2.0 N - XR KNEE 3 V [id number] 21:05:00 [facility] : 1975 Sex: F Patient Name: EDEN CHAKRABORTY Unit No: [id number] EXAMS: CPT CODE: [id number] XR KNEE 3 V [place] [id number] Location: H3 Right knee x-ray exam: 3 views, 01/10/21 CLINICAL HISTORY: Atraumatic knee pain. Comparison exam: None of the knee Knee joint is fairly well-maintained. No erosion identified. No abnormal jointeffusion. No abnormal calcific deposition. The overlying soft tissues appear unremarkable. IMPRESSION: Fairly unremarkable exam t 2104 Reported and signed by: Karina Huff MD CC: Timur Middleton MD; Karissa AWAD Technologist: Daquan Armas (RT) Transcrpt Date/Tm/Trnsp: 01/10/2021 (2104) [email or web address] Orig Print D/T: S: 01/10/2021 (2107) [facility] NAME: EDEN CHAKRABORTY [address] PHYS: [place] [address] : 1975 AGE: 45 SEX: F LOC: ZDakshaERS PHONE #: [phone] EXAM DATE: 01/10/2021 STATUS: REG ER FAX #: [phone] RADIOLOGY NO: [id number] PAGE 1 Signed ReportCBC WITH DIFF 2020-10-29 13:24:00 Test Item Value [...] (test code = 51.6 fL 39-49.9 H 32671-1) RDW-CV (test code = 14.3 % 12-15.5 788-0) PLT (test code = See_Comment H [Automated 777-3) message] The sy stem which generated this result transmitted reference range : 166 - 358 10*3/ ?L. The reference r madelin was not used to interpret this result as normal/abnormal . MPV (test code = 8.9 fL 9.5-12.9 L 32641-8) NRBC/100 WBC (test See_Comment [Automat ed code = 2141813995) message] The system which generated this result transmitted reference range : 0.0 - 10.0 /100 WBCs. The refer ence range was not u sed to interpret th is result as normal/abnormal . NRBC x10^3 (test code <0.01 See_Comment [Auto mated = 3186296669) message] The s ystem which generated this result transmitted reference range : 10*3/?L. The reference range was not used to interpret this result as normal/abnormal . GRAN MAT (NEUT) % 43.5 % (test code = 770-8) IMM GRAN % (test code 0.50 % = 4727551535) LYMPH % (test code = 36.9 % 736-9) MONO % (test code = 11.5 % 5905-5) EOS % (test code = 6.5 % 713-8) BASO % (test code = 1.1 % 706-2) GRAN MAT x10^3(ANC) 2.80 10*3/uL 1.88-7.09 (test code = 1133171363) IMM GRAN x10^3 (test 0.03 10*3/uL 0-0.06 code = 0730845930) LYMPH x10^3 (test code 2.37 10*3/uL 1.32-3.29 = 731-0) MONO x10^3 (test code 0.74 10*3/uL 0.33-0.92 = 742-7) EOS x10^3 (test code = 0.42 10*3/uL 0.03-0.39 H 711-2) BASO x10^3 (test code 0.07 10*3/uL 0.01-0.07 = 704-7) Lab Interpretation Abnormal (test code = 57377-9) [facility] Metabolic Panel (NA, K, CL, CO2, GLUCOSE, BUN, CREATININE, CA)2020-10-29 10:07:00 Test Item Value Reference Range Interpretation Comments NA (test code = 133 mmol/L 135-145 L 9734861187) K (test code = 4.3 mmol/L 3.5-5 2687197705) CL (test code = 102 mmol/L 98-108 9475335950) CO2 TOTAL (test code = 28 mmol/L 23-31 9397701506) AGAP (test code = 2-16 2008342960) BUN (test code = 3 mg/dL 7-23 L 0602227197) GLUCOSE (test code = 103 mg/dL 70-110 9223928601) CREATININE (test code = 0.62 mg/dL 0.5-1.04 8830852193) CALCIUM (test code = 8.4 mg/dL 8.6-10.6 L 1415073361) eGFR Calculation mL/min/1.73m2 (Non-) (test code = 9228999161) eGFR Calculation mL/min/1.73m2 () (test code = 4579414773) RAUDEL (test code = RAUDEL) Association of [...] tests). Lab Interpretation Abnormal (test code = 07745-8) [facility] [id number] 10:07:00 Test Item Value Reference Range Interpretation Comments MAGNESIUM (test code = 6233083180) 1.5 mg/dL 1.7-2.4 L Lab Interpretation (test code = Abnormal 35044-7) [facility]UR[facility] [id number] 13:44:00 Test Item Value Reference Range Interpretation Comments URINE CULTURE (test < 10,000 CFU/mL mixed code = 630-4) aerobic organisms - suggests endogenous microbial contamination [facility] [id number] 10:45:00 Test Item Value Reference Range Interpretation Comments PHOSPHORUS (test code = 4533627886) 3.4 mg/dL 2.5-5 Lab Interpretation (test code = Normal 88301-4) [facility] (NA, K, CL, CO2, GLUCOSE, BUN, CREATININE, CA)2020-10-28 10:45:00 Test Item Value Reference Range Interpretation Comments NA (test code = 135 mmol/L 135-145 4636592106) K (test code = 4.0 mmol/L 3.5-5 7573775633) CL (test code = 101 mmol/L 98-108 0821481748) CO2 TOTAL (test code = 31 mmol/L 23-31 2770648702) AGAP (test code = 2-16 3726807746) BUN (test code = 4 mg/dL 7-23 L 8499106049) GLUCOSE (test code = 100 mg/dL 70-110 8699802782) CREATININE (test code = 0.70 mg/dL 0.5-1.04 8678753202) CALCIUM (test code = 8.3 mg/dL 8.6-10.6 L 6558302702) eGFR Calculation mL/min/1.73m2 (Non-) (test code = 6807749322) eGFR Calculation mL/min/1.73m2 () (test code = 1598015007) RAUDEL (test code = RAUDEL) Association of [...] tests). Lab Interpretation Abnormal (test code = 64041-7) [facility] [id number] 10:45:00 Test Item Value Reference Range Interpretation Comments MAGNESIUM (test code = 8798392045) 1.8 mg/dL 1.7-2.4 Lab Interpretation (test code = Normal 16105-3) [facility] WITH [id number] 10:13:00 Test Item Value Reference Range Interpretation [...] RDW-SD (test code = 48.4 fL 39-49.9 61018-9) RDW-CV (test code = 13.8 % 12-15.5 788-0) PLT (test code = See_Comment H [Automated 777-3) message] The sy stem which generated this result transmitted reference range : 166 - 358 10*3/ ?L. The reference r madelin was not used to interpret this result as normal/abnormal . MPV (test code = 9.1 fL 9.5-12.9 L 29029-9) NRBC/100 WBC (test See_Comment [Automat ed code = 7807259788) message] The system which generated this result transmitted reference range : 0.0 - 10.0 /100 WBCs. The refer ence range was not u sed to interpret th is result as normal/abnormal . NRBC x10^3 (test code <0.01 See_Comment [Auto mated = 3526946172) message] The s ystem which generated this result transmitted reference range : 10*3/?L. The reference range was not used to interpret this result as normal/abnormal . GRAN MAT (NEUT) % 55.3 % (test code = 770-8) IMM GRAN % (test code 0.40 % = 4794507018) LYMPH % (test code = 29.4 % 736-9) MONO % (test code = 9.4 % 5905-5) EOS % (test code = 5.1 % 713-8) BASO % (test code = 0.4 % 706-2) GRAN MAT x10^3(ANC) 3.83 10*3/uL 1.88-7.09 (test code = 8131608863) IMM GRAN x10^3 (test 0.03 10*3/uL 0-0.06 code = 4209813133) LYMPH x10^3 (test code 2.04 10*3/uL 1.32-3.29 = 731-0) MONO x10^3 (test code 0.65 10*3/uL 0.33-0.92 = 742-7) EOS x10^3 (test code = 0.35 10*3/uL 0.03-0.39 711-2) BASO x10^3 (test code 0.03 10*3/uL 0.01-0.07 = 704-7) Lab Interpretation Abnormal (test code = 30024-7) [facility] [id number] 07:50:00 Test Item Value Reference Range Interpretation Comments MAGNESIUM (test code = 2589367366) 1.1 mg/dL 1.7-2.4 L Lab Interpretation (test code = Abnormal 31734-9) [facility]IS2020-12-13 07:50:00 Test Item Value Reference Range Interpretation Comments APPEARANCE (test code = Hazy Clear A 0998412990) COLOR (test code = Yellow Yellow 7797869795) PH (test code = 4.8-8.0 3634035569) SP GRAVITY (test code = 1.003-1.030 4678543348) GLU U QUAL (test code = Normal Normal 7156870155) BLOOD (test code = Negative Negative 7720130596) KETONES (test code = Negative Negative 1376104540) PROTEIN (test code = Negative Negative 2887-8) UROBILIN (test code = Normal Normal 8521072500) BILIRUBIN (test code = Negative Negative 3181124688) NITRITE (test code = Negative Negative 8412746724) LEUK CHELY (test code = 25/uL Negative A 2713282561) RBC/HPF (test code = See_Comment [Autom ated message] 1570653907) The system Cursogram generated this result transmitted ref erence range: 0 - 3 HP F. The reference range was not used to int erpret this result as normal/abnormal . WBC/HPF (test code = See_Comment [Autom ated message] 4971269410) The system Cursogram generated this result transmitted ref erence range: 0 - 5 HP F. The reference range was not used to int erpret this result as normal/abnormal . BACTERIA (test code = Negative Negative 2448117647) MUCOUS (test code = Slight Negative LPF A 5937142054) SQ EPITH (test code = See_Comment [Auto mated message] 7159326950) The system Cursogram generated this result transmitted ref erence range: <=2 HPF. The reference range was not used to int erpret this result as normal/abnormal . Lab Interpretation (test Abnormal code = 94009-3) [facility] (NA, K, CL, CO2, GLUCOSE, BUN, CREATININE, CA)2020-10-27 07:45:00 Test Item Value Reference Range Interpretation Comments NA (test code = 135 mmol/L 135-145 8760893088) K (test code = 3.2 mmol/L 3.5-5 L 2404804671) CL (test code = 99 mmol/L 98-108 9388156132) CO2 TOTAL (test code = 35 mmol/L 23-31 H 6663548183) AGAP (test code = 2-16 L 4356839667) BUN (test code = 3 mg/dL 7-23 L 8217416228) GLUCOSE (test code = 104 mg/dL 70-110 9496814151) CREATININE (test code = 0.66 mg/dL 0.5-1.04 2512627616) CALCIUM (test code = 7.5 mg/dL 8.6-10.6 L 1894074562) eGFR Calculation mL/min/1.73m2 (Non-) (test code = 5336252736) eGFR Calculation mL/min/1.73m2 () (test code = 9725013748) RAUDEL (test code = RAUDEL) Association of [...] tests). Lab Interpretation Abnormal (test code = 19870-4) [facility] with Qbdtirybpryl7054-67-93 07:24:00 Test Item Value Reference Range Interpretation [...] RDW-SD (test code = 46.6 fL 39-49.9 95267-8) RDW-CV (test code = 13.7 % 12-15.5 788-0) PLT (test code = See_Comment H [Automated 777-3) message] The sy stem which generated this result transmitted reference range : 166 - 358 10*3/ ?L. The reference r madelin was not used to interpret this result as normal/abnormal . MPV (test code = 9.1 fL 9.5-12.9 L 56723-1) NRBC/100 WBC (test See_Comment [Automat ed code = 5180981819) message] The system which generated this result transmitted reference range : 0.0 - 10.0 /100 WBCs. The refer ence range was not u sed to interpret th is result as normal/abnormal . NRBC x10^3 (test code <0.01 See_Comment [Auto mated = 8815657667) message] The s ystem which generated this result transmitted reference range : 10*3/?L. The reference range was not used to interpret this result as normal/abnormal . GRAN MAT (NEUT) % 52.0 % (test code = 770-8) IMM GRAN % (test code 0.50 % = 6671569090) LYMPH % (test code = 34.7 % 736-9) MONO % (test code = 8.6 % 5905-5) EOS % (test code = 3.7 % 713-8) BASO % (test code = 0.5 % 706-2) GRAN MAT x10^3(ANC) 3.19 10*3/uL 1.88-7.09 (test code = 0456025589) IMM GRAN x10^3 (test 0.03 10*3/uL 0-0.06 code = 3400208751) LYMPH x10^3 (test code 2.13 10*3/uL 1.32-3.29 = 731-0) MONO x10^3 (test code 0.53 10*3/uL 0.33-0.92 = 742-7) EOS x10^3 (test code = 0.23 10*3/uL 0.03-0.39 711-2) BASO x10^3 (test code 0.03 10*3/uL 0.01-0.07 = 704-7) Lab Interpretation Abnormal (test code = 45214-0) [facility] ONLY COVID [id number] 00:32:00COVID DMT InterpretationInterpretation/Recommendations: Molecular NAAT Tests for Active Infection with the SARS-CoV-2 Virus: This patient has a history of testing negative on multiple occasions for mmeQDPD-NcS-0 virus that causes COVID-19 illness, with no [...] upon aggregate COVID-19 test results pooled from [facility]. They apply to the following tests offered at [facility] and assume the acceptable specimen type(s) were used: A. Tests for the Identification of SARS-CoV-2 RNA (Molecular NAAT Tests): ?- SARS-CoV-2 PCR assays including PantherAptima, Drayton Fusion, Villarreal RealTime, and [employer] Xpert Xpress. ?- SARS-CoV-2 Rapid ID NOW by the ID NOW assay. ? B. Tests for the Identification of SARS-CoV-2 Antibodies: ?- Chemiluminescent immunoassays including Access SARS-CoV-2 IgM (DXI 600), Stateless NetworksS Zqwt-TWQG-YlO-2 IgG (Vitros 5600and Vitros 3600), and Villarreal SARS-CoV-2 IgG (MEATMAN I System). These interpretations are autopopulated into [facility] based on computerized algorithms matching an interpretation code to the patient's setof test results, and a clinical pathologist evaluates the comments for accuracy. However, these comments do not consider testing a patient may have had outside of the [facility] system. If results for COVID-19 [...] lavage fluid (BAL), tracheal aspirate, etc.). ? [facility] LABORATORY SERVICESCOVID EgwexuaUEVU-IsL-3 Rapid ID NOW (no units) ? ? Date ? Value ? 10/24/2020 ? Not Detected ? ? ? 2020 ? Not Detected ? ? ? 09/25/2020 ? Not Detected ? ? ? 09/10/2020 ? Not Detected ? ? ? 09/04/2020 ? Not Detected ? ? ? 08/17/2020 ? Not Detected ? ? ? 07/23/2020 ? Not Detected ? [facility] SERVICESUnAd[facility] TexasCBC with Bhbauwdqpwwz7697-27-63 11:58:00 Test Item Value Reference Range Interpretation [...] RDW-SD (test code = 47.2 fL 39-49.9 29760-0) RDW-CV (test code = 14.5 % 12-15.5 788-0) PLT (test code = See_Comment H [Automated 777-3) message] The sy stem which generated this result transmitted reference range : 166 - 358 10*3/ ?L. The reference r madelin was not used to interpret this result as normal/abnormal . MPV (test code = 10.1 fL 9.5-12.9 82265-7) NRBC/100 WBC (test See_Comment [Automat ed code = 4804285936) message] The system which generated this result transmitted reference range : 0.0 - 10.0 /100 WBCs. The refer ence range was not u sed to interpret th is result as normal/abnormal . NRBC x10^3 (test code <0.01 See_Comment [Auto mated = 4032647374) message] The s ystem which generated this result transmitted reference range : 10*3/?L. The reference range was not used to interpret this result as normal/abnormal . GRAN MAT (NEUT) % 50.3 % (test code = 770-8) IMM GRAN % (test code 0.50 % = 7510947586) LYMPH % (test code = 36.9 % 736-9) MONO % (test code = 7.6 % 5905-5) EOS % (test code = 4.2 % 713-8) BASO % (test code = 0.5 % 706-2) GRAN MAT x10^3(ANC) 2.76 10*3/uL 1.88-7.09 (test code = 9097654825) IMM GRAN x10^3 (test 0.03 10*3/uL 0-0.06 code = 2644856932) LYMPH x10^3 (test code 2.03 10*3/uL 1.32-3.29 = 731-0) MONO x10^3 (test code 0.42 10*3/uL 0.33-0.92 = 742-7) EOS x10^3 (test code = 0.23 10*3/uL 0.03-0.39 711-2) BASO x10^3 (test code 0.03 10*3/uL 0.01-0.07 = 704-7) Lab Interpretation Abnormal (test code = 77641-5) [facility] [id number] 04:43:00 Test Item Value Reference Range Interpretation Comments MAGNESIUM (test code = 0256101363) 1.0 mg/dL 1.7-2.4 L Lab Interpretation (test code = Abnormal 93360-7) [facility] (NA, K, CL, CO2, GLUCOSE, BUN, CREATININE, CA)2020-10-26 04:43:00 Test Item Value Reference Range Interpretation Comments NA (test code = 136 mmol/L 135-145 5276462966) K (test code = 2.8 mmol/L 3.5-5 LL 7894486581) CL (test code = 97 mmol/L 98-108 L 5957162017) CO2 TOTAL (test code = 35 mmol/L 23-31 H 9309694551) AGAP (test code = 2-16 3219782726) BUN (test code = 3 mg/dL 7-23 L 5188237982) GLUCOSE (test code = 116 mg/dL 70-110 H 7792873774) CREATININE (test code = 0.81 mg/dL 0.5-1.04 6533384239) CALCIUM (test code = 7.2 mg/dL 8.6-10.6 L 9556379261) eGFR Calculation mL/min/1.73m2 (Non-) (test code = 9789881212) eGFR Calculation mL/min/1.73m2 () (test code = 9649887077) RAUDEL (test code = RAUDEL) Association of [...] tests). Lab Interpretation Abnormal (test code = 47104-9) [facility] CenterPhosphorus [id number] 04:35:00 Test Item Value Reference Range Interpretation Comments PHOSPHORUS (test code = 5739480232) 3.0 mg/dL 2.5-5 Lab Interpretation (test code = Normal 94491-1) [facility] CenterCBC with Moamnqbusqxg3197-27-39 04:11:00 Test Item Value Reference Range Interpretation Comments WBC (test code = See_Comment [Automated 3790-2) message] The sy stem which generated this result transmitted reference range : 4.30 - 11.10 10*3/?L. The reference range was not used to interpret this result as normal/abnormal . RBC (test code = See_Comment L [Automated 759-8) message] The sy stem which generated this [...] RDW-SD (test code = 45.6 fL 39-49.9 31822-6) RDW-CV (test code = 13.4 % 12-15.5 788-0) PLT (test code = See_Comment H [Automated 777-3) message] The sy stem which generated this result transmitted reference range : 166 - 358 10*3/ ?L. The reference r madelin was not used to interpret this result as normal/abnormal . MPV (test code = 9.2 fL 9.5-12.9 L 63436-3) NRBC/100 WBC (test See_Comment [Automat ed code = 1873104922) message] The system which generated this result transmitted reference range : 0.0 - 10.0 /100 WBCs. The refer ence range was not u sed to interpret th is result as normal/abnormal . NRBC x10^3 (test code <0.01 See_Comment [Auto mated = 2737944478) message] The s ystem which generated this result transmitted reference range : 10*3/?L. The reference range was not used to interpret this result as normal/abnormal . GRAN MAT (NEUT) % 55.9 % (test code = 770-8) IMM GRAN % (test code 0.40 % = 9905149402) LYMPH % (test code = 31.9 % 736-9) MONO % (test code = 8.4 % 5905-5) EOS % (test code = 3.1 % 713-8) BASO % (test code = 0.3 % 706-2) GRAN MAT x10^3(ANC) 3.80 10*3/uL 1.88-7.09 (test code = 9830643917) IMM GRAN x10^3 (test 0.03 10*3/uL 0-0.06 code = 9874766816) LYMPH x10^3 (test code 2.17 10*3/uL 1.32-3.29 = 731-0) MONO x10^3 (test code 0.57 10*3/uL 0.33-0.92 = 742-7) EOS x10^3 (test code = 0.21 10*3/uL 0.03-0.39 711-2) BASO x10^3 (test code <0.03 0.01-0.07 = 704-7) Lab Interpretation Abnormal (test code = 84602-2) [facility] [id number] 14:39:02 1. ?Postsurgical changes of recent ileostomy [...] Preliminary Report Dictated by Resident: Fanny Gonzales ?MD Kristina., have reviewed this study and agree with theabove report.EXAM: CT ABDOMEN/PELVIS WITH CONTRAST HISTORY: ?abdominal pain , outside image. Recent ileostomy reversal. ? COMPARISON:CT abdomen and pelvis 09/01/2020 TECHNIQUE AND FINDINGS: [facility], labeled with the patients name, wassubmitted [...] AND FINDINGS: [facility] [...] this study and agree with theabove report.[facility] (ID NOW RAPID TESTING)2020-10-25 01:48:00 Test Item Value Reference Range Interpretation Comments SARS-CoV-2 Rapid ID NOW Not Detected Not Detected (test code = 94410-2) RAUDEL (test code = RAUDEL) ID NOW COVID-19 Assay is an isothermal nucleic acid amplification test intended for the qualitative detection of nucleic acid from SARS-CoV-2 viral RNA in nasopharyngeal (RN ACCESS) specimens. It is used under Emergency Use [...] acid from SARS-CoV-2 viral RNA in nasopharyngeal (RN ACCESS) specimens. It is used under Emergency Use [...] indicated. Lab Interpretation Normal (test code = 04957-9) [facility] (NA, K, CL, CO2, GLUCOSE, BUN, CREATININE, CA)2020-10-24 23:16:00 Test Item Value Reference Range Interpretation Comments NA (test code = 137 mmol/L 135-145 1411197110) K (test code = 3.5 mmol/L 3.5-5 4739976117) CL (test code = 101 mmol/L 98-108 6547481111) CO2 TOTAL (test code = 31 mmol/L 23-31 5234327194) AGAP (test code = 2-16 1067111941) BUN (test code = 5 mg/dL 7-23 L 1715455011) GLUCOSE (test code = 80 mg/dL 70-110 0833223015) CREATININE (test code = 0.57 mg/dL 0.5-1.04 4483538205) CALCIUM (test code = 7.4 mg/dL 8.6-10.6 L 1035775783) eGFR Calculation mL/min/1.73m2 (Non-) (test code = 5969023122) eGFR Calculation mL/min/1.73m2 () (test code = 4261994205) RAUDEL (test code = RAUDEL) Association of [...] tests). Lab Interpretation Abnormal (test code = 96244-4) [facility] WITH [id number] 23:09:00 Test Item Value Reference Range Interpretation [...] RDW-SD (test code = 46.5 fL 39-49.9 88993-2) RDW-CV (test code = 13.4 % 12-15.5 788-0) PLT (test code = See_Comment H [Automated 777-3) message] The sy stem which generated this result transmitted reference range : 166 - 358 10*3/ ?L. The reference r madelin was not used to interpret this result as normal/abnormal . MPV (test code = 9.4 fL 9.5-12.9 L 12017-2) NRBC/100 WBC (test See_Comment [Automat ed code = 8713662698) message] The system which generated this result transmitted reference range : 0.0 - 10.0 /100 WBCs. The refer ence range was not u sed to interpret th is result as normal/abnormal . NRBC x10^3 (test code <0.01 See_Comment [Auto mated = 2654338272) message] The s ystem which generated this result transmitted reference range : 10*3/?L. The reference range was not used to interpret this result as normal/abnormal . GRAN MAT (NEUT) % 54.7 % (test code = 770-8) IMM GRAN % (test code 0.50 % = 0336038871) LYMPH % (test code = 35.9 % 736-9) MONO % (test code = 6.3 % 5905-5) EOS % (test code = 2.3 % 713-8) BASO % (test code = 0.3 % 706-2) GRAN MAT x10^3(ANC) 3.37 10*3/uL 1.88-7.09 (test code = 3209937748) IMM GRAN x10^3 (test 0.03 10*3/uL 0-0.06 code = 0643256659) LYMPH x10^3 (test code 2.21 10*3/uL 1.32-3.29 = 731-0) MONO x10^3 (test code 0.39 10*3/uL 0.33-0.92 = 742-7) EOS x10^3 (test code = 0.14 10*3/uL 0.03-0.39 711-2) BASO x10^3 (test code <0.03 0.01-0.07 = 704-7) Lab Interpretation Abnormal (test code = 59834-7) [facility]CL[facility] DIFF[facility]ILE [id number] 17:18:00 Test Item Value Reference Range Interpretation Comments Clostridioides (Clostridium) Negative Negative difficile (test code = 48468-1) Lab Interpretation (test code = Normal 88781-5) [facility]OLIC PANEL (NA, K, CL, CO2, GLUCOSE, BUN, CREATININE, CA)2020-10-17 23:42:00 Test Item Value Reference Range Interpretation Comments NA (test code = 135 mmol/L 135-145 8853455307) K (test code = 4.0 mmol/L 3.5-5 6045644729) CL (test code = 105 mmol/L 98-108 6709441525) CO2 TOTAL (test code = 22 mmol/L 23-31 L 9961315723) AGAP (test code = 2-16 0176367306) BUN (test code = 8 mg/dL 7-23 9944453070) GLUCOSE (test code = 127 mg/dL 70-110 H 6379279334) CREATININE (test code = 0.96 mg/dL 0.5-1.04 9996832980) CALCIUM (test code = 8.7 mg/dL 8.6-10.6 6478789762) eGFR Calculation mL/min/1.73m2 (Non-) (test code = 5647299876) eGFR Calculation mL/min/1.73m2 () (test code = 6832530011) RAUDEL (test code = RAUDEL) Association of [...] tests). Lab Interpretation Abnormal (test code = 45927-7) [facility] [id number] 19:12:00 Test Item Value Reference Range Interpretation Comments Case Report (test code Surgical Pathology ? ? = [id number]) ?Case: [id number] ? Authorizing Provider: ?Darren Chun MD ?Collected: ? 10/14/2020 0901 ?Ordering Location: ? ? [facility] OR ? Received: ?10/14/2020 1106 ? Department ? Pathologist: ? Simón, Marian, ? Specimens: ? A) - STOMA, Ileostomy ? B) - COLON, Ileocolic anastamosis ? Final Diagnosis (test k0ffkAZrUBRap5mhIRIwmS code = 9600699417) FuZzEwMzNcZnRuYmpcdWMx WYeeptCdXKevy0NsN7PoIc AwMFxhbnNpXGRlZmxhbmcx DLGnYRN6kiKuHHNkODqxVT ZrEKwcGe1szLOkiTijCwXk WMQnl9cmfsIIpogfpVu8m1 eaSCFtKnO0jKOmKZnxR2vh wlFroQAfRPRlLRc3fU55IN PuwE4cwYJwWXuuvxIyLoF0 HFxkMQIyArH3CAUufBLiAC ErD7xkXARkDBhkYSTjHVsl vGJxVNN9rYpxz3P1wJOtuJ HwmXfvSlMsCpLuJATAt7Nk WFl7gRooA1JsRZSoBbY6xV QgUGFyYWdyYXBoIEZvbnQ7 qN62CDtfunW4oFGra8Obz5 2zd472pT3lmUGjQAD4JDQn WKLgdMTvVZPxMLD4QJTomN WeW3ytIEwoFN0pfcegIQA5 MFxtYXJndDcyMFxtYXJnYj CydREvZFMbqWaxSXkgo597 KEJ0TwMjWH1fA3Bwp3W1vU 9maXRcZGVmdGFiNzIwXGZv gy3tvAVrGFiow8YhHHH2is F1gSYjjQYuRJOzAU19Cibm u5HeBdgtVCJ9UGWmzhBrb7 Wqs9icFfSywqKbH3lvZ1Qj ZHJoZWFkXHBnYnJkcmZvb3 Ist6JtvPDgpTy2y6mrRUAc ILAttRfyo1etOWO7WSKxG5 M1rTLsb2xmDZwfBALyaBY2 yvTmTFRapVWmE7DupN3nTN icNP3ldyj5w4tnFtPbNT3d tspil7coGYrfAIQuIIL9My WvRUNkr6AbuynqDpZwj8Vq nSZiGXqdW72jo814XQElnw ZoM5uszXBbjhirzTAzwcvb HGcprbJ0AJLyJIFiVEpiKI YxXGZzMjBcbGFuZzEwMzNc aGljaFxmMVxkYmNoXGYxXG pvK3wlYgDgZxOmACirRUKn HF2pO21AL31sAMzHHN9CGU 1OSCTVFX5HNRmzAVhKVBOT U358WGSzlxAjSEXlIO9dTg XXWWfFKVDHJF2vQW5ZHSiK PITXEYGQH0QYQOQFCRZMNI EHW5LQYMOWXAGJFflHE3VX U83iBC5SIURGWpETC3YrFH BLS2xPOdgcaHIeWVXkCHEn YRVbJ12OX3zURIZGRDBYOZ EUAEvCUO5VPO4WDOxjKRWh lHSsJTDkQDDCZY7MKMMNXA EYN62DXJWyZA7OE9PTQB2G UBRwPTDOJ6gZGB4SBerrUZ IgICAgICAtIEJFTklHTiBD B3hVNhDLUmXxJDkSRLpyKH xUS3XJZPkDECurP89GU6IJ MZCTZCHOW8GAREvkG52QS9 qMNAHOWEKTTMNPSWiTWO8X D8cVS3hoSLOlDNVhZTLjLR CXLjZYOX0II6VLV6jyOGL2 r0jcaQBkVZDgsCWzPyLfQN PyBZXaq3zjLYFkfQCnAzYw MzNcZnRuYmpcdWMxXGRlZm Qcv1zto742dOLeb4jwRSYy EjC6rJRtWQCdxEidydw8cY nvAyTiWABax4qnsoQoGwMb MKOhLADkCLPtqDNnK314XV UmROxdk8fxq0VdYDZqyWAu p2Z1DUFTWDvdZpEjB709o3 qsq3zjynLvfJK2HEUoUWA9 WAirloXkpiX3ACswgQMpLz Z1KOctewWnWCeoseJdwdZk Wpn3KMOzW515PMQ2nMppd2 bdMUV7YOLuJBTzYbhoVb7w iTGdN640FRNtAVSOXCPriM f0MHMgzkFojeIooKNAn690 R623h5whJTUxsgQkqYiZkm uqc0gnG290WXOwrHBnsdZm ZxFrWUUpyYPvuIK7YRBdHJ 1ejkshIQldCWaoHYTwkjT3 IUAaoZGeE2JmPGUqFB1mql xmFME8WLhmZWJqRHR2XcWp VPWjo6Bushr7AdLqju7icg 33GZZ7s7WukJyhVYV8ZUK5 EuVuQt2msJAvUZHuKH7uQc GctSOjGVFteb58iSubITbr yjMgfS2wHtEhREPdkRHbUN NfMA3lrLQzMSRokR3mmedn XHBnYnJkcmhlYWRccGdicm WhWy1zuNqbSMV6WNccQ1hu lW3lVuJ4ETtyV1jrqJ7gYE v3PGweySO8PVMijJ5tHV1k fnqqk8lpVQilYYgfJCScom K6apX8BGQwoKQiV3ArzA7u RZJiQD6nacolc6dvDDT7JJ muWZSbZNL5KwXpLBNoh1Dw cnc7HkSal4SymANsGIpzZ0 8hq018XYNvrhEmI0aldWSn upfviYSvfcpiQCagqqA9AK FsXHBsYWluXGYxXGZzMjBc bGFuZzEwMzNcaGljaFxmMV ooHnRyJEXuLSmpC1zqNxOk R7UqCMQfGsCklVKiOZgrbP Q2HJGfHSGlk07lrBg1GBWs euauv9MgECBmnWPlxDRrqH 3ghpCxw5osMSEwGNYbDERv E6PsAOA2wAJxMOVteQTwnC L0OF0qreUwGQ5yPRQhQyfh cmVzaWRlbnRzLCBmZWxsb3 fnFZ8tOTUisXhchQ9zgEO9 HHDnq0mhdIIdaEUki7zxv9 UgbmFtZShzKSBtYXkgYXBw FQXhWL3hAUIrkAUqvbVre2 X3EvwyhMHksdyuDpvcvoV4 GTtjyzsqOFYuJGzcN0mxEv KpDUAnjXwbCvylt5PgCITq XGZzMjhccGFyfX0= Clinical Information Ileostomy care [Z43.2] (test code = 8263139309) Gross Description (test c5xanAElYHExoUCfHkSsCS code = 9413473599) KuNVJoi2ezMLMvlCJeMdSd MzNcZnRuYmpcdWMxXGRlZm Mvb5fyf366rEEnh5lzFBBt OwQ3bXDlOCVlyAWpD676RI SlRKavq6bcz5RuPFOykBBd i7J2EGZNpphubMa8gPpwK4 0qi2O3CcmxC4kkAGBwFHEp O2BlPG3jJSEhOpq8YGJ0JA N0THQyIQPoY2GvBY9jGSId sUJbVIh8e3vjbNvyHVUgIP Z9w7wxGDlklmGeQC0zyl4y aIj5q8rffcQhPGTwVYRktB WPAQGgZ1NilAljUh2knQw0 dUmwCkccNCO2Ktr8DR0uqq 10ayu6zWuvLGImgicjAxL3 QTolDEWxwcxfCQz9RVpxAY KsbQMqAYPlqRBsO7UvVRkz CF5hcfh7CrAmJW9skwioAP ygYGVyQAA8YwXtFWQlp7Oq pwzeAaNsrw7stp18BYL4c6 JnjUlcTYY2KRO4FiRjJb9f kIHaTFQsRI7xErIhsPIkUI Fgvs63hWtjMMukhxWtgV7z ToMfYPAmfNZnJGYcOG5oaO XtMAVtkB3uybquRVGlRnAq oqdpTCBrbAjncuJnXh3ncN wiLSY5IAppC5qwnO3pZgJ7 GYqbL2dlmQ7jKUa6VLsgxF T3NHAnrV2fKY5shwzws6vi WPL2YZetJYPkcvW7uqWmAN UdfBEjF7CneU89BvLyzLWb S4LcbJ0zUNugKDGunbn1Vg MeEj4amXDfxDF1ODzuLnkr YWdlXHBnbmNvbnRccGduZG VjXHBsYWluXHBsYWluXGYw WVOdTmPixFahfEwgzI6gRz BpWyDiXQzkTR5vRKIuI4pu yQBvSDRpAHQuP5sxRhUriH 9jaFxmMVxmczIwIFNwZWNp bUNgNJRuwkQdSUx7XVYfBb Eub6mfdXYaUBsfICD5xSJy nBS8aMRcjKjpJT1otVQzQI VRUR88nTDakaflFfRmUmYn dFmvh7HlXNWaeNGkx7PzrD ttq9IfrXJcEYIdWTBjf70d dBR9phEuPaJiomVrhADao5 HdnLbfcOEpCJFtc28gf0Bw X6dkMV9ca2w9vGMhFDY6jd ajK0RjzKmpu1D2wTVgZXCa vE7rOFAbufWwBIXukNIyaR RwWWWiv1N8WGAgQ84kioXl s5McNy90PZgqRIUkGAKvrR CattXuXM5hvFaqME0iNSZo NiBjbSBkaWFtZXRlcikuIC YUgCFhn3AdCE18F11wDQPq dRV5wNFzz4NpgFYpwKVeWT RhnxCmjNOjxWOenM5tF0Qk uG73ZU2tk5q8pZUtVWXsgX 5zzttxBV4jIIHcfDYmcGJq IIKzdR1nYJTbFqYwwPasEA RxBBTclUYacAZuuMKnV1dp GQruMEDhuD08CJZoUT0cEX CzWRAzbJCsnP7tthNuubHm oMMiHNYvlrZ5QNKckE6eSY VucmVtYXJrYWJsZSBpbnRl w9JlwkJjQT70H16pDG5xSk QwduOfLF42XXPstaKvWbNf gK75rUspf34sd7GnkAXleF AaAPzthKtvbjWvTHE4sF3t ttEhukKoj8YpzLz7nUOwHP FzIEExXHBsYWluXGYwXGZz MjBcbGFuZzEwMzNcaGljaF ebYVhsCtAzBBIuWXphE5pr OqCfViFzAQm1ALXiATPnGc u5AAToJLqbXOBcPGBuYsLr bGFuZzEwMzNcaGljaFxmMV hdMaRhFWUfIBfmI1wrZqKd YyAxRNDADc0csHGxZSNfky IRkTYmsR2bxbCPTERiR3Jn dmVkIGZyZXNoIGxhYmVsZW Qdu6l0gNO4hMMijUJ1vNIy bUotES6nxFTzTBHXJS12lZ JebjztVpKsZfRdySqtc2Ii MLWksDNfS97usYUtIW1bx2 NzlY0dbNGyWPRmJCVad44u vJG2grYeBqIwvqDsiiHsY2 BmKNRie3OqdQCvdLIdSoXk pxAgkT5vj5SyZHKxm2kdeG W8jXNqQN93jVPdiQkgPZH9 RCVtWFCwWDKkvO5yFFe4Gj LpvHCcToUiyYAfCletV20g BuXcT9SluPqlVB1wwvhxsb GkPYWvYOSptJXar7KmAIRd MQBwetMkvgA8zlOamDUoj0 LyvFWmO95wf68hAyJgxqUk rFkpQUvtvOGtm5JcXYKgMK LxfiDzLW50FbJgQOgpZWzy rIHbo7FkCEtregGkZUVyoH ystQAcmEYkz8q3zF9bOUdc bHltcGhvaWQgaHlwZXJwbG HgbITbHKVaVDBiAX9hWG9z AFQiiMBzz4CkjQS5kBClDP BhC9Yyx90mSYEoKKOdjMIx lCG4IXPpWUCbXhGluVfmlL 9bZxYxAtCzBAruWV5uSRIs G8vyzOZcUBRrRMWiZ3gvDe XdoL3zwXwfIHyvdpQjUYK3 VfNnYDcuPPWuhHulxM7tQt PuSpIsKNwbGK9xVPEgX6hf eYEzCOLtVIQeL3obBdTyxK 9jaFxmMVxmczIwIEIyLlxw YXJccGFyXHBhcmRccGxhaW 5cZjBcZnMyNFxwbGFpblxm MVxmczIwXGxhbmcxMDMzXG myA5ehCdDfBWRbtSbrTTtl m9YaOCEbZYTeDoHtAYS6jZ IVfQ39KKOvXPJeMBOcsHnj wV6vyGO0RKJou1qtmJCnvR lccGFyfQ== Embedded Images (test code = 1123976559) [facility]MR[facility] by PCR [id number] 21:21:00 Test Item Value Reference Range Interpretation Comments MSSA Screen by Phill BERMUDEZ (test code Negative Negative = 24906-0) MRSA/MSSA Positive? (test code = No No 1054260284) Lab Interpretation (test code = Normal 56696-2) [facility] CenterUrinalysis2020-11-18 06:06:00 Test Item Value Reference Range Interpretation Comments APPEARANCE (test code = Cloudy Clear A 3751007313) COLOR (test code = Kathleen Yellow A 5875923719) PH (test code = 4.8-8.0 3841828667) SP GRAVITY (test code = 1.003-1.030 5251945710) GLU U QUAL (test code = Normal Normal 7626676237) BLOOD (test code = 1+ Negative A 2682870578) KETONES (test code = 5 mg/dL Negative A 9614660052) PROTEIN (test code = 100 mg/dL Negative A 2887-8) UROBILIN (test code = 2.0 mg/dL Normal A 9867455345) BILIRUBIN (test code = Negative Negative 3817700285) NITRITE (test code = Negative Negative 5109610175) LEUK CHELY (test code = Negative Negative 9687330422) RBC/HPF (test code = See_Comment H [Autom ated message] 2802231998) The system Cursogram generated this result transmit carl reference range : 0 - 3 HPF. The refe rence range was not u sed to interpret th is result as normal/abnormal . WBC/HPF (test code = See_Comment [Autom ated message] 1355807472) The system Cursogram generated this result transmit carl reference range : 0 - 5 HPF. The refe rence range was not u sed to interpret th is result as normal/abnormal . BACTERIA (test code = Moderate Negative A 0906978710) MUCOUS (test code = Marked Negative LPF A 7279247246) SQ EPITH (test code = HPF 0023415221) CA OXALATE (test code = See_Comment H [Au tomated message] 8832677853) The system Cursogram generated this result transmit carl reference range : <=1 HPF. The refere nce range was not u sed to interpret th is result as normal/abnormal . HYAL CAST (test code = See_Comment H [Aut omated message] 9876985718) The system Cursogram generated this result transmit carl reference range : <=2 LPF. The refere nce range was not u sed to interpret th is result as normal/abnormal . GRAN CASTS (test code = See_Comment H [Au tomated message] 0515711505) The system Cursogram generated this result transmit carl reference range : <=1 LPF. The refere nce range was not u sed to interpret th is result as normal/abnormal . Lab Interpretation (test Abnormal code = 30652-0) [facility] CenterHepatic Function Panel (ALB, T.PRO, BILI T, BU/BC, ALT, AST, ALK PHOS)2020-10-02 05:46:00 Test Item Value Reference Range Interpretation Comments TOTAL BILI (test code = 3544844390) 1.0 mg/dL 0.1-1.1 BILI UNCON (test code = 0735256772) 0.6 mg/dL 0.1-1.1 BILI CONJ (test code = 5055555481) 0.0 mg/dL 0-0.3 T PROTEIN (test code = 7467078689) 9.9 g/dL 6.3-8.2 H ALBUMIN (test code = 1341174832) 5.4 g/dL 3.5-5 H ALK PHOS (test code = 7170109797) 153 U/L 34-122 H ALTv (test code = 1742-6) 62 U/L 5-35 H AST(SGOT) (test code = 0608376914) 51 U/L 13-40 H Lab Interpretation (test code = Abnormal 53175-0) [facility] CenterLipase [id number] 05:46:00 Test Item Value Reference Range Interpretation Comments LIPASE (test code = 2586823494) 117 U/L 0-220 Lab Interpretation (test code = Normal 04758-3) [facility] (NA, K, CL, CO2, GLUCOSE, BUN, CREATININE, CA)2020-10-02 05:46:00 Test Item Value Reference Range Interpretation Comments NA (test code = 135 mmol/L 135-145 1861407961) K (test code = 4.4 mmol/L 3.5-5 5178254820) CL (test code = 102 mmol/L 98-108 8860194570) CO2 TOTAL (test code = 19 mmol/L 23-31 L 3768443468) AGAP (test code = 2-16 7058917083) BUN (test code = 19 mg/dL 7-23 8375554783) GLUCOSE (test code = 135 mg/dL 70-110 H 1643559336) CREATININE (test code = 1.19 mg/dL 0.5-1.04 H 7227152581) CALCIUM (test code = 11.3 mg/dL 8.6-10.6 H 5103859642) eGFR Calculation mL/min/1.73m2 (Non-) (test code = 0804135809) eGFR Calculation mL/min/1.73m2 () (test code = 5897511797) RAUDEL (test code = RAUDEL) Association of [...] tests). Lab Interpretation Abnormal (test code = 73149-2) [facility] with Qwgxcnnyaqrz1827-12-05 05:34:00 Test Item Value Reference Range Interpretation Comments WBC (test code = See_Comment [Automated 0666-2) message] The sy stem which generated this result transmitted reference range : 4.30 - 11.10 10*3/?L. The reference range was not used to interpret this result as normal/abnormal . RBC (test code = See_Comment [Automated 677-8) message] The sy stem which generated this [...] RDW-SD (test code = 40.6 fL 39-49.9 54773-0) RDW-CV (test code = 11.9 % 12-15.5 L 788-0) PLT (test code = See_Comment H [Automated 777-3) message] The sy stem which generated this result transmitted reference range : 166 - 358 10*3/ ?L. The reference r madelin was not used to interpret this result as normal/abnormal . MPV (test code = 9.9 fL 9.5-12.9 09971-3) NRBC/100 WBC (test See_Comment [Automat ed code = 4889039100) message] The system which generated this result transmitted reference range : 0.0 - 10.0 /100 WBCs. The refer ence range was not u sed to interpret th is result as normal/abnormal . NRBC x10^3 (test code <0.01 See_Comment [Auto mated = 6216575321) message] The s ystem which generated this result transmitted reference range : 10*3/?L. The reference range was not used to interpret this result as normal/abnormal . GRAN MAT (NEUT) % 38.8 % (test code = 770-8) IMM GRAN % (test code 0.20 % = 4622123391) LYMPH % (test code = 51.7 % 736-9) MONO % (test code = 7.4 % 5905-5) EOS % (test code = 0.9 % 713-8) BASO % (test code = 1.0 % 706-2) GRAN MAT x10^3(ANC) 2.27 10*3/uL 1.88-7.09 (test code = 9381752415) IMM GRAN x10^3 (test <0.03 0-0.06 code = 4228192979) LYMPH x10^3 (test code 3.02 10*3/uL 1.32-3.29 = 731-0) MONO x10^3 (test code 0.43 10*3/uL 0.33-0.92 = 742-7) EOS x10^3 (test code = 0.05 10*3/uL 0.03-0.39 711-2) BASO x10^3 (test code 0.06 10*3/uL 0.01-0.07 = 704-7) Lab Interpretation Abnormal (test code = 14222-1) [facility] CenterHCV BY [id number] 17:03:00 Test Item Value Reference Range Interpretation Comments HCV by Real-Time Not Detected Not detected IU/mL PCR (test code = 1834320218) RAUDEL (test code = [employer] m2000 RealTime HCV RAUDEL) reverse machine pie maker-polymerase chain reaction(RT-PCR) assay is used. It is [...] 0 IU/mL,>100,000,000 IU/mL: >upper limit of quantification. [facility] CenterCOMP. METABOLIC PANEL (46520)2020-09-16 15:03:00 Test Item Value Reference Range Interpretation Comments NA (test code = 135 mmol/L 135-145 1652156359) K (test code = 4.4 mmol/L 3.5-5 8935434159) CL (test code = 111 mmol/L 98-108 H 1425518832) CO2 TOTAL (test code = 21 mmol/L 23-31 L 8536467221) AGAP (test code = 2-16 7166105461) BUN (test code = 11 mg/dL 7-23 9236811507) GLUCOSE (test code = 115 mg/dL 70-110 H 1202414906) CREATININE (test code = 0.83 mg/dL 0.5-1.04 6254092175) TOTAL BILI (test code = 0.5 mg/dL 0.1-1.7 0794133115) CALCIUM (test code = 8.3 mg/dL 8.6-10.6 L 2472326338) T PROTEIN (test code = 5.4 g/dL 6.3-8.2 L 0635679508) ALBUMIN (test code = 2.8 g/dL 3.5-5 L 9543159354) ALK PHOS (test code = 71 U/L 34-122 7623441858) ALTv (test code = 31 U/L 5-35 1742-6) AST(SGOT) (test code = 31 U/L 13-40 6812529263) eGFR Calculation mL/min/1.73m2 (Non-) (test code = 2378191473) eGFR Calculation mL/min/1.73m2 () (test code = 8821346156) RAUDEL (test code = RAUDEL) Association of [...] tests). Lab Interpretation Abnormal (test code = 17683-3) [facility]. METABOLIC PANEL (18060)2020-09-15 11:19:00 Test Item Value Reference Range Interpretation Comments NA (test code = 135 mmol/L 135-145 0569101965) K (test code = 3.9 mmol/L 3.5-5 0334736932) CL (test code = 104 mmol/L 98-108 9230301887) CO2 TOTAL (test code = 27 mmol/L 23-31 6436015808) AGAP (test code = 2-16 4433497812) BUN (test code = 15 mg/dL 7-23 9742426274) GLUCOSE (test code = 153 mg/dL 70-110 H 0511853769) CREATININE (test code = 0.91 mg/dL 0.5-1.04 5828291740) TOTAL BILI (test code = 0.4 mg/dL 0.1-1.4 7860244731) CALCIUM (test code = 9.2 mg/dL 8.6-10.6 3542026745) T PROTEIN (test code = 7.2 g/dL 6.3-8.2 6866220591) ALBUMIN (test code = 3.8 g/dL 3.5-5 6440276856) ALK PHOS (test code = 106 U/L 34-122 6518708671) ALTv (test code = 43 U/L 5-35 H 1742-6) AST(SGOT) (test code = 28 U/L 13-40 6520279173) eGFR Calculation mL/min/1.73m2 (Non-) (test code = 9504454478) eGFR Calculation mL/min/1.73m2 () (test code = 8008860227) RAUDEL (test code = RAUDEL) Association of [...] tests). Lab Interpretation Abnormal (test code = 08925-7) [facility] CenterHEPATIC FUNCTION PANEL (44647) (ALB,T.PRO,BILI T,BU/BC,ALT,AST,ALK PHOS)2020-09-14 19:50:00 Test Item Value Reference Range Interpretation Comments TOTAL BILI (test code = 3139585845) 0.5 mg/dL 0.1-1.1 BILI UNCON (test code = 5348609589) 0.4 mg/dL 0.1-1.1 BILI CONJ (test code = 7954834511) 0.0 mg/dL 0-0.3 T PROTEIN (test code = 6531739411) 6.5 g/dL 6.3-8.2 ALBUMIN (test code = 1216286036) 3.4 g/dL 3.5-5 L ALK PHOS (test code = 9421531010) 95 U/L 34-122 ALTv (test code = 1742-6) 45 U/L 5-35 H AST(SGOT) (test code = 9310965183) 31 U/L 13-40 Lab Interpretation (test code = Abnormal 87625-6) [facility] CenterCREATINE [id number] 18:49:00 Test Item Value Reference Range Interpretation Comments CK (test code = 8344762193) 44 U/L 33-194 Lab Interpretation (test code = Normal 15623-6) [facility] CenterBASIC METABOLIC PANEL (NA, K, CL, CO2, GLUCOSE, BUN, CREATININE, CA)2020-09-14 17:05:00 Test Item Value Reference Range Interpretation Comments NA (test code = 136 mmol/L 135-145 9709725059) K (test code = 3.9 mmol/L 3.5-5 1170448293) CL (test code = 104 mmol/L 98-108 3651678927) CO2 TOTAL (test code = 27 mmol/L 23-31 3863834584) AGAP (test code = 2-16 6756072277) BUN (test code = 17 mg/dL 7-23 9457177514) GLUCOSE (test code = 114 mg/dL 70-110 H 9405279233) CREATININE (test code = 0.84 mg/dL 0.5-1.04 4744131461) CALCIUM (test code = 8.9 mg/dL 8.6-10.6 0725003747) eGFR Calculation mL/min/1.73m2 (Non-) (test code = 2519093626) eGFR Calculation mL/min/1.73m2 () (test code = 4858757380) RAUDEL (test code = RAUDEL) Association of [...] tests). Lab Interpretation Abnormal (test code = 70536-9) [facility]HE[facility] SURFACE [id number] 16:44:00 Test Item Value Reference Range Interpretation Comments HBsAB (test code = Negative 7221399384) HBsAb mIU/mL Semi-Quantitative (test code = 1101673013) RAUDEL (test code = Interpretation: RAUDEL) ?Hepatitis B Surface Antibody ? Negative - Patient is considered to be not immune to infection with HBV. ? ? Positive - Anti-HBs detected at greater than or equal to 12 mIU/mL. ?Patient is considered to be immune to infection with HBV. ? [facility] B SURFACE [id number] 16:27:00 Test Item Value Reference Range Interpretation Comments HBsAg Semi-Quantitative (test code = Negative Negative 5195-3) [facility] CenterMAGNESIUM2020-10-31 04:05:00 Test Item Value Reference Range Interpretation Comments MAGNESIUM (test code = 8043116797) 1.6 mg/dL 1.7-2.4 L Lab Interpretation (test code = Abnormal 77838-8) [facility] CenterTROPONIN [id number] 20:02:00 Test Item Value Reference Range Interpretation Comments TROPONIN I (test <0.012 See_Comment [Automated code = 7047390452) message] The system which generated this result [...] ? Lab Interpretation Normal (test code = 81534-1) [facility] CenterCOMP. METABOLIC PANEL (00145)2020-09-13 17:43:00 Test Item Value Reference Range Interpretation Comments NA (test code = 139 mmol/L 135-145 4322251825) K (test code = 4.5 mmol/L 3.5-5 2121790190) CL (test code = 99 mmol/L 98-108 6349158425) CO2 TOTAL (test code = 31 mmol/L 23-31 7334493896) AGAP (test code = 2-16 1843877491) BUN (test code = 14 mg/dL 7-23 8192051149) GLUCOSE (test code = 115 mg/dL 70-110 H 3991429798) CREATININE (test code = 1.31 mg/dL 0.5-1.04 H 7814061983) TOTAL BILI (test code = 1.4 mg/dL 0.1-1.1 H 8849193987) CALCIUM (test code = 10.6 mg/dL 8.6-10.6 2214616123) T PROTEIN (test code = 9.1 g/dL 6.3-8.2 H 0220260977) ALBUMIN (test code = 4.7 g/dL 3.5-5 2749493442) ALK PHOS (test code = 160 U/L 34-122 H 2325259728) ALTv (test code = 84 U/L 5-35 H 1742-6) AST(SGOT) (test code = 51 U/L 13-40 H 5311984056) eGFR Calculation mL/min/1.73m2 (Non-) (test code = 3856293951) eGFR Calculation mL/min/1.73m2 () (test code = 9693758034) RAUDEL (test code = RAUDEL) Association of [...] tests). Lab Interpretation Abnormal (test code = 94773-5) [facility] CenterLIPASE2020-10-30 17:43:00 Test Item Value Reference Range Interpretation Comments LIPASE (test code = 0891378665) 88 U/L 0-220 Lab Interpretation (test code = Normal 77853-4) [facility] CenterCB WITH [id number] 17:31:00 Test Item Value Reference Range Interpretation Comments WBC (test code = See_Comment [Automated 4958-2) message] The sy stem which generated this result transmitted reference range : 4.30 - 11.10 10*3/?L. The reference range was not used to interpret this result as normal/abnormal . RBC (test code = See_Comment [Automated 994-5) message] The sy stem which generated this [...] RDW-SD (test code = 44.9 fL 39-49.9 43372-3) RDW-CV (test code = 12.9 % 12-15.5 788-0) PLT (test code = See_Comment H [Automated 777-3) message] The sy stem which generated this result transmitted reference range : 166 - 358 10*3/ ?L. The reference r madelin was not used to interpret this result as normal/abnormal . MPV (test code = 9.7 fL 9.5-12.9 41188-7) NRBC/100 WBC (test See_Comment [Automat ed code = 5317822626) message] The system which generated this result transmitted reference range : 0.0 - 10.0 /100 WBCs. The refer ence range was not u sed to interpret th is result as normal/abnormal . NRBC x10^3 (test code <0.01 See_Comment [Auto mated = 1971957341) message] The s ystem which generated this result transmitted reference range : 10*3/?L. The reference range was not used to interpret this result as normal/abnormal . GRAN MAT (NEUT) % 80.0 % (test code = 770-8) IMM GRAN % (test code 0.50 % = 4226753045) LYMPH % (test code = 10.4 % 736-9) MONO % (test code = 7.1 % 5905-5) EOS % (test code = 1.5 % 713-8) BASO % (test code = 0.5 % 706-2) GRAN MAT x10^3(ANC) 7.11 10*3/uL 1.88-7.09 H (test code = 3866872066) IMM GRAN x10^3 (test 0.04 10*3/uL 0-0.06 code = 5861621549) LYMPH x10^3 (test code 0.92 10*3/uL 1.32-3.29 L = 731-0) MONO x10^3 (test code 0.63 10*3/uL 0.33-0.92 = 742-7) EOS x10^3 (test code = 0.13 10*3/uL 0.03-0.39 711-2) BASO x10^3 (test code 0.04 10*3/uL 0.01-0.07 = 704-7) Lab Interpretation Abnormal (test code = 31786-3) [facility] CenterXR ABDOMEN 2 [id number] 17:08:57Overall, bowel gas pattern is felt to [...] appliance projects over the right lower quadrant.[facility] CenterCOMP. METABOLIC PANEL (82048)2020-09-01 07:34:00 Test Item Value Reference Range Interpretation Comments NA (test code = 137 mmol/L 135-145 5385775053) K (test code = 3.6 mmol/L 3.5-5 5772285188) CL (test code = 100 mmol/L 98-108 5508290418) CO2 TOTAL (test code = 26 mmol/L 23-31 5294898374) AGAP (test code = 2-16 2861526919) BUN (test code = 19 mg/dL 7-23 5498414435) GLUCOSE (test code = 171 mg/dL 70-110 H 4465386135) CREATININE (test code = 0.98 mg/dL 0.5-1.04 1770933580) TOTAL BILI (test code = 0.8 mg/dL 0.1-1.0 3870686838) CALCIUM (test code = 10.4 mg/dL 8.6-10.6 2617340281) T PROTEIN (test code = 8.9 g/dL 6.3-8.2 H 6851276426) ALBUMIN (test code = 4.9 g/dL 3.5-5 4901637772) ALK PHOS (test code = 109 U/L 34-122 0419928912) ALTv (test code = 46 U/L 5-35 H 1742-6) AST(SGOT) (test code = 26 U/L 13-40 4305033415) eGFR Calculation mL/min/1.73m2 (Non-) (test code = 3847661148) eGFR Calculation mL/min/1.73m2 () (test code = 8728161249) RAUDEL (test code = RAUDEL) Association of [...] tests). Lab Interpretation Abnormal (test code = 51030-3) [facility] Test Item Value Reference Range Interpretation Comments LIPASE (test code = 1626450506) 103 U/L 0-220 Lab Interpretation (test code = Normal 06788-5) [id number] 07:19:00 Test Item Value Reference Range Interpretation Comments WBC (test code = See_Comment [Automated 3390-2) message] The sy stem which generated this result transmitted reference range : 4.30 - 11.10 10*3/?L. The reference range was not used to interpret this result as normal/abnormal . RBC (test code = See_Comment [Automated 719-8) message] The sy stem which generated this [...] RDW-SD (test code = 40.4 fL 39-49.9 32387-4) RDW-CV (test code = 12.1 % 12-15.5 788-0) PLT (test code = See_Comment [Automated 797-3) message] The sy stem which generated this result transmitted reference range : 166 - 358 10*3/ ?L. The reference r madelin was not used to interpret this result as normal/abnormal . MPV (test code = 10.7 fL 9.5-12.9 46251-3) NRBC/100 WBC (test See_Comment [Automat ed code = 1889926919) message] The system which generated this result transmitted reference range : 0.0 - 10.0 /100 WBCs. The refer ence range was not u sed to interpret th is result as normal/abnormal . NRBC x10^3 (test code <0.01 See_Comment [Auto mated = 0281369473) message] The s ystem which generated this result transmitted reference range : 10*3/?L. The reference range was not used to interpret this result as normal/abnormal . GRAN MAT (NEUT) % 77.7 % (test code = 770-8) IMM GRAN % (test code 0.20 % = 3370180495) LYMPH % (test code = 18.3 % 736-9) MONO % (test code = 3.5 % 5905-5) EOS % (test code = 0.0 % 713-8) BASO % (test code = 0.3 % 706-2) GRAN MAT x10^3(ANC) 4.63 10*3/uL 1.88-7.09 (test code = 5320593645) IMM GRAN x10^3 (test <0.03 0-0.06 code = 8258148886) LYMPH x10^3 (test code 1.09 10*3/uL 1.32-3.29 L = 731-0) MONO x10^3 (test code 0.21 10*3/uL 0.33-0.92 L = 742-7) EOS x10^3 (test code = <0.03 0.03-0.39 L 711-2) BASO x10^3 (test code <0.03 0.01-0.07 = 704-7) Lab Interpretation Abnormal (test code = 18020-6) [facility] Test Item Value Reference Range Interpretation Comments LIPASE (test code = 1230214596) 171 U/L 0-220 Lab Interpretation (test code = Normal 75040-4) [facility] WITH [id number] 02:25:00 Test Item Value Reference Range Interpretation Comments WBC (test code = See_Comment [Automated message] 6690-2) The system [employer] generated this result transmitted ref erence range: 4.30 - 1 1.10 10*3/?L. The re ference range was not u sed to interpret this result as normal/abnor mal. RBC (test code = See_Comment [Automated message] 789-8) The system [employer] generated this result transmitted ref erence range: [...] RDW-SD (test code 42.3 fL 39-49.9 = 96560-9) RDW-CV (test code 12.1 % 12-15.5 = 788-0) PLT (test code = See_Comment [Automated message] 777-3) The system [employer] generated this result transmitted ref erence range: 166 - 35 8 10*3/?L. The re ference range was not u sed to interpret this result as normal/abnor mal. MPV (test code = 11.0 fL 9.5-12.9 93255-6) NRBC/100 WBC (test See_Comment [Automat ed message] code = 6286531307) The syste [employer] which generated this result transmitted ref erence range: 0.0 - 10 .0 /100 WBCs. The refer ence range was not u sed to interpret this result as normal/abnor mal. NRBC x10^3 (test <0.01 See_Comment [Automated message] code = 2131614890) The syste m which generated this result transmitted ref erence range: 10*3/?L. The reference range was not used to interpr et this result as normal/abnormal . GRAN MAT (NEUT) % 44.5 % (test code = 770-8) IMM GRAN % (test 0.20 % code = 1493589441) LYMPH % (test code 43.0 % = 736-9) MONO % (test code 9.5 % = 5905-5) EOS % (test code = 1.7 % 713-8) BASO % (test code 1.1 % = 706-2) GRAN MAT 2.35 10*3/uL 1.88-7.09 x10^3(ANC) (test code = 0542906525) IMM GRAN x10^3 <0.03 0-0.06 (test code = 3697531362) LYMPH x10^3 (test 2.27 10*3/uL 1.32-3.29 code = 731-0) MONO x10^3 (test 0.50 10*3/uL 0.33-0.92 code = 742-7) EOS x10^3 (test 0.09 10*3/uL 0.03-0.39 code = 711-2) BASO x10^3 (test 0.06 10*3/uL 0.01-0.07 code = 704-7) [facility] W [id number] 03:50:29Addendum by Rhett Harden MD on 08/17/2020 11:01 PM* * * * * * * * ADDENDUM: * * * * * * * * The finding regarding left breast nodule was discussed with Dr MunozAtfvoazr91/3/2020 10:53 PM Preliminary Report Dictated by Resident: [...] this study and agree with theabove report.[facility] ([facility] NOW RAPID TESTING) 2020-08-18 01:55:00 Test Item Value Reference Range Interpretation Comments SARS-CoV-2 Rapid ID NOW Not Detected Not Detected (test code = 01409-9) RAUDEL (test code = RAUDEL) ID NOW COVID-19 Assay is an isothermal nucleic acid amplification test intended for the qualitative detection of nucleic acid from SARS-CoV-2 viral RNA in nasopharyngeal (RN ACCESS) specimens. It is used under Emergency Use [...] indicated. Lab Interpretation Normal (test code = 98852-9) [facility]. METABOLIC PANEL ([id number])2020-08-18 01:47:00 Test Item Value Reference Range Interpretation Comments NA (test code = 135 mmol/L 135-145 8960951806) K (test code = 4.1 mmol/L 3.5-5 8218815382) CL (test code = 96 mmol/L 98-108 L 9775286952) CO2 TOTAL (test code = 30 mmol/L 23-31 8743314763) AGAP (test code = 2-16 0015840750) BUN (test code = 17 mg/dL 7-23 6223015775) GLUCOSE (test code = 149 mg/dL 70-110 H 1307902337) CREATININE (test code = 1.21 mg/dL 0.5-1.04 H 8663897372) TOTAL BILI (test code = 0.7 mg/dL 0.1-1.0 1199400913) CALCIUM (test code = 10.5 mg/dL 8.6-10.6 1348365214) T PROTEIN (test code = 8.6 g/dL 6.3-8.2 H 3918106108) ALBUMIN (test code = 4.4 g/dL 3.5-5 7572533923) ALK PHOS (test code = 170 U/L 34-122 H 2051396983) ALTv (test code = 145 U/L 5-35 H 1742-6) AST(SGOT) (test code = 70 U/L 13-40 H 4416735446) eGFR Calculation mL/min/1.73m2 (Non-) (test code = 7522953330) eGFR Calculation mL/min/1.73m2 () (test code = 5172454336) RAUDEL (test code = RAUDEL) Association of [...] tests). Lab Interpretation Abnormal (test code = 46323-1) [facility]00 Test Item Value Reference Range Interpretation Comments LIPASE (test code = 6988200869) 172 U/L 0-220 Lab Interpretation (test code = Normal 10251-4) [facility] WITH [id number] 01:34:00 Test Item Value Reference Range Interpretation Comments WBC (test code = See_Comment [Automated 5569-2) message] The sy stem which generated this result transmitted reference range : 4.30 - 11.10 10*3/?L. The reference range was not used to interpret this result as normal/abnormal . RBC (test code = See_Comment [Automated 143-3) message] The sy stem which generated this [...] RDW-SD (test code = 41.1 fL 39-49.9 67282-3) RDW-CV (test code = 11.8 % 12-15.5 L 788-0) PLT (test code = See_Comment [Automated 777-3) message] The sy stem which generated this result transmitted reference range : 166 - 358 10*3/ ?L. The reference r madelin was not used to interpret this result as normal/abnormal . MPV (test code = 10.4 fL 9.5-12.9 07269-8) NRBC/100 WBC (test See_Comment [Automat ed code = 3662285614) message] The system which generated this result transmitted reference range : 0.0 - 10.0 /100 WBCs. The refer ence range was not u sed to interpret th is result as normal/abnormal . NRBC x10^3 (test code <0.01 See_Comment [Auto mated = 4201331752) message] The s ystem which generated this result transmitted reference range : 10*3/?L. The reference range was not used to interpret this result as normal/abnormal . GRAN MAT (NEUT) % 50.9 % (test code = 770-8) IMM GRAN % (test code 0.40 % = 7213471190) LYMPH % (test code = 35.9 % 736-9) MONO % (test code = 9.9 % 5905-5) EOS % (test code = 2.2 % 713-8) BASO % (test code = 0.7 % 706-2) GRAN MAT x10^3(ANC) 2.31 10*3/uL 1.88-7.09 (test code = 8825763419) IMM GRAN x10^3 (test <0.03 0-0.06 code = 5625924460) LYMPH x10^3 (test code 1.63 10*3/uL 1.32-3.29 = 731-0) MONO x10^3 (test code 0.45 10*3/uL 0.33-0.92 = 742-7) EOS x10^3 (test code = 0.10 10*3/uL 0.03-0.39 711-2) BASO x10^3 (test code 0.03 10*3/uL 0.01-0.07 = 704-7) Lab Interpretation Abnormal (test code = 10918-5) [facility] WITH [id number] 10:12:00 Test Item Value Reference Range Interpretation [...] RDW-SD (test code = 45.2 fL 39-49.9 58123-5) RDW-CV (test code = 12.9 % 12-15.5 788-0) PLT (test code = See_Comment H [Automated 777-3) message] The sy stem which generated this result transmitted reference range : 166 - 358 10*3/ ?L. The reference r madelin was not used to interpret this result as normal/abnormal . MPV (test code = 9.8 fL 9.5-12.9 14532-7) NRBC/100 WBC (test See_Comment [Automat ed code = 7009474884) message] The system which generated this result transmitted reference range : 0.0 - 10.0 /100 WBCs. The refer ence range was not u sed to interpret th is result as normal/abnormal . NRBC x10^3 (test code <0.01 See_Comment [Auto mated = 0169441362) message] The s [employer] which generated this result transmitted reference range : 10*3/?L. The reference range was not used to interpret this result as normal/abnormal . GRAN MAT (NEUT) % 64.8 % (test code = 770-8) IMM GRAN % (test code 2.10 % = 7165984560) LYMPH % (test code = 21.9 % 736-9) MONO % (test code = 9.0 % 5905-5) EOS % (test code = 1.9 % 713-8) BASO % (test code = 0.3 % 706-2) GRAN MAT x10^3(ANC) 8.61 10*3/uL 1.88-7.09 H (test code = 6875193615) IMM GRAN x10^3 (test 0.28 10*3/uL 0-0.06 H code = 1665568402) LYMPH x10^3 (test code 2.91 10*3/uL 1.32-3.29 = 731-0) MONO x10^3 (test code 1.20 10*3/uL 0.33-0.92 H = 742-7) EOS x10^3 (test code = 0.25 10*3/uL 0.03-0.39 711-2) BASO x10^3 (test code 0.04 10*3/uL 0.01-0.07 = 704-7) REACT LYMPHS (test Rare code = 1466851526) Lab Interpretation Abnormal (test code = 47463-8) [facility] METABOLIC PANEL (NA, K, CL, CO2, GLUCOSE, BUN, CREATININE, CA)2020-08-01 09:46:00 Test Item Value Reference Range Interpretation Comments NA (test code = 137 mmol/L 135-145 1224416122) K (test code = 4.0 mmol/L 3.5-5 1398524244) CL (test code = 100 mmol/L 98-108 0766895977) CO2 TOTAL (test code = 30 mmol/L 23-31 6955395260) AGAP (test code = 2-16 5060787581) BUN (test code = 5 mg/dL 7-23 L 8112592702) GLUCOSE (test code = 139 mg/dL 70-110 H 8023814678) CREATININE (test code = 0.73 mg/dL 0.5-1.04 7109825037) CALCIUM (test code = 9.3 mg/dL 8.6-10.6 5055569289) eGFR Calculation mL/min/1.73m2 (Non-) (test code = 9968075058) eGFR Calculation mL/min/1.73m2 () (test code = 9354476797) RAUDEL (test code = RAUDEL) Association of [...] tests). Lab Interpretation Abnormal (test code = 58306-9) [facility] 09:46:00 Test Item Value Reference Range Interpretation Comments MAGNESIUM (test code = 3400482433) 1.9 mg/dL 1.7-2.4 Lab Interpretation (test code = Normal 21653-0) [facility]2020-[facility]-17 09:46:00 Test Item Value Reference Range Interpretation Comments PHOSPHORUS (test code = 3865884429) 3.0 mg/dL 2.5-5 Lab Interpretation (test code = Normal 75839-2) [facility] WITH [id number] 10:55:00 Test Item Value Reference Range Interpretation [...] RDW-SD (test code = 45.4 fL 39-49.9 37992-5) RDW-CV (test code = 12.8 % 12-15.5 788-0) PLT (test code = See_Comment H [Automated 777-3) message] The sy stem which generated this result transmitted reference range : 166 - 358 10*3/ ?L. The reference r madelin was not used to interpret this result as normal/abnormal . MPV (test code = 9.7 fL 9.5-12.9 86543-5) NRBC/100 WBC (test See_Comment [Automat ed code = 0505953976) message] The system which generated this result transmitted reference range : 0.0 - 10.0 /100 WBCs. The refer ence range was not u sed to interpret th is result as normal/abnormal . NRBC x10^3 (test code <0.01 See_Comment [Auto mated = 1564405358) message] The s ystem which generated this result transmitted reference range : 10*3/?L. The reference range was not used to interpret this result as normal/abnormal . GRAN MAT (NEUT) % 42.8 % (test code = 770-8) IMM GRAN % (test code 5.50 % = 0485180969) LYMPH % (test code = 36.7 % 736-9) MONO % (test code = 11.8 % 5905-5) EOS % (test code = 2.8 % 713-8) BASO % (test code = 0.4 % 706-2) GRAN MAT x10^3(ANC) 4.35 10*3/uL 1.88-7.09 (test code = 5687899416) IMM GRAN x10^3 (test 0.56 10*3/uL 0-0.06 H code = 1870621526) LYMPH x10^3 (test code 3.74 10*3/uL 1.32-3.29 H = 731-0) MONO x10^3 (test code 1.20 10*3/uL 0.33-0.92 H = 742-7) EOS x10^3 (test code = 0.29 10*3/uL 0.03-0.39 711-2) BASO x10^3 (test code 0.04 10*3/uL 0.01-0.07 = 704-7) REACT LYMPHS (test Rare code = 6402386274) Lab Interpretation Abnormal (test code = 09507-4) [facility] METABOLIC PANEL (NA, K, CL, CO2, GLUCOSE, BUN, CREATININE, CA)2020-07-31 10:50:00 Test Item Value Reference Range Interpretation Comments NA (test code = 135 mmol/L 135-145 6649392275) K (test code = 3.8 mmol/L 3.5-5 9224381230) CL (test code = 101 mmol/L 98-108 6290328765) CO2 TOTAL (test code = 27 mmol/L 23-31 0359408502) AGAP (test code = 2-16 2731671949) BUN (test code = 2 mg/dL 7-23 L 0554441221) GLUCOSE (test code = 132 mg/dL 70-110 H 4114168405) CREATININE (test code = 0.72 mg/dL 0.5-1.04 4495944122) CALCIUM (test code = 8.4 mg/dL 8.6-10.6 L 8653780261) eGFR Calculation mL/min/1.73m2 (Non-) (test code = 3235386235) eGFR Calculation mL/min/1.73m2 () (test code = 7873434017) RAUDEL (test code = RAUDEL) Association of [...] tests). Lab Interpretation Abnormal (test code = 87865-5) [facility] 10:50:00 Test Item Value Reference Range Interpretation Comments MAGNESIUM (test code = 8057485711) 1.2 mg/dL 1.7-2.4 L Lab Interpretation (test code = Abnormal 39635-0) [facility]2020-09-16 10:50:00 Test Item Value Reference Range Interpretation Comments PHOSPHORUS (test code = 4098810820) 3.8 mg/dL 2.5-5 Lab Interpretation (test code = Normal 72803-7) [facility] [id number] 15:48:00 Test Item Value Reference Range Interpretation Comments Case Report (test code Surgical Pathology ? ? = 3964440864) ?Case: [id number] ? Authorizing Provider: ?Darren Chun MD ?Collected: ? 07/25/2020 1708 ?Ordering Location: ? ? [facility] OR ? Received: ?07/26/2020913 ? Department ? Pathologist: ? Deniz Joseph MD PHD ?Specimen: ? ?ABDOMEN, ILEOCECECTOMY ? Final Diagnosis (test s9imtRMrTPYfl5uvIDKveIK code = 5010733738) uZzEwMzNcZnRuYmpcdWMxIH wmleSkHLbgg6OmB0AbIfGcE FxhbnNpXGRlZmxhbmcxMDMz MBX8cfRmINHkAMmpFEArGKb lBl9ykPGtaHgpRaXkBGJiq1 kdltWYffrouXl8s0yyQMYmG pE3pUSsSVsuG7lbmlZnlSLd JNSoQHs2qM12HRFymV2ovXB tVCevgcFlRvB5MSpyJQOxAs N4GCAltVSpPKLxF4ylQYVmI FzwADWxGFtdbYJiQUS4iRdz m8S5hIGntBBnhCsbNjHcLfM eQJGKc5KxJIz0nLwzY8FpSP OzAkO8mDXfHTWxBEzbNBJpY ABnryJ5yX79WGgdoyP0tRAj x3Ese60li463hB7noEZxCVB 0BTEoOMYxsUXoCYOoXZB0RX KumGDfR9lxCXfyEN1zatkcO KP6MKqsMQCjpHdyIQtlTUDk DzVbkBMfDDIegPngMGllp28 5AOA1ZbIaCD7eT9Oxz0V9mC 9maXRcZGVmdGFiNzIwXGZvc a7hqHExBQeqq0NyUYT3tvT6 sRNidDEwKSSwHW22Sprpv7U dGddpGYA5UOXkgfLog7Mep9 mvZmQxvhWqV1yrN2JqIEPcP GKbFDCaYpAjhtZvg0Ukw9Yc eETpgDp9i2vlLREdQFGgqNy qf3xhIVK5PRArR0O5mSItr9 vmLGxiXIClrRB2gtLaFXSoo MUcU8WiqM9sLNuuVJ4jxrt9 x4tyMqAzJI7jpbrwx4ujXOo xVLMoAZJ5KjByCTIos6Vfwh itHmAup6EnnKEnDGlqK78jc 023ZBXloiJxE8cerAToryul qUYcssxyGJavtkF5XJOrTQF sYWluXGYxXGZzMjBcbGFuZz EwMzNcaGljaFxmMVxkYmNoX CPjNFedZ8qjSsUcAlDpJOrn BVHbXA6gH77IOZzpAV4GTLR OPH4DXJKBNYARXWUITLRAMN IJH3FMHGZZXOFEH2DPLXHRN 59QDhczHVBdWOUvRJ2iV2VR TUVOVEFMIFNNQUxMIElOVEV TVElORSAgSVNDSEVNSUMgTk YTXu3OYUNgM4kIYUVEXoOAI 14ECfZTMCyENx4LWqVYUQ7W LCBccGFyICAgICAgICBTRUN IMzMVEwuyYZ7tGhuJWy6OOM GmQTSFTBTGM20cNS3PUVCXF JuHWKUBV2VAIO3JI8PNMPTP OB8VCAxdQVUbNDOkAP7pI6S UKHCNTDEIGk9YMfMLQ67SKL QABC5HKQoDPVqnV1FPICCRD 1NBTCBBTkQgVFJBTlNNVVJB YGZRAM4WHgZXTMxWTOmfWYV vBFBaRL5gUb3wQBYJMRTRV8 AyU6ZePXUSVIPICTRDU7dSM 1MgRElTRUFTRVxwYXIgICAg ET5gJ6ZFU9mCURatCXQRS2k OUyBBUkUgVklBQkxFIFxwYX TwTUTlQS2uMj0hYUHLIPcMY L4AQHCDTOLWDPpFHKNAFENj ciAgICAgLSBBUFBFTkRJWCB BTRRZVEPXDe0NAYIHWrAmhF FyXHBhclxwbGFpblxmMVxmc yKaOCkcresjEDSwCNyiD5qc ZnVuQOXceSxvLQpzl7GnAXU iHOIoYvzsjrIjUHwkWI44HN 4sHSW2EUWBHSZnRO7oIB7aS DIwIFxwbGFpblxmMVxmczIw KHqvlfwnDXJwZUupG0hlZcF lTPSgeOvwDRrny6CxONPqPF ZzMjBccGFyfXtccnRmMVxzc 8FvW6KsFwEuBIsvihKoXUPr NisrgwapFCMsNWP5alSkZON aKLfzWODkPSqtSc6vbQPvtG poPnAmQIDlf8tuttQGKFepX bOsS561DTOvVAboa8yer3Od DGNbeNZqq5L4OXYDqszqrQs 6w3mpMnLoKwZ4xJNvEVtdH0 jjwfZjcOBaF2OttGImbLx7n XwoK69rj4D8IagzO8jxNNZl TCJpW9EbJZ1qMQVtBtw3MBN 3VGB6ZLJiSZKfE7CeIT3eUY GvwOEuDFp4e1giaXvqKSWpN HW7m3kjROgrnzC1HP8del0w xBq9z2pvdqXoVZBpHPDwoEJ RZMErI0TbaLunUd6cpEf3mY nbFhlaWTF4Iam8KJ8zzo38t dh2cMzxLWIkdmebQtY9NEyi EFZeesqoFFq6CPymKPKqhAZ 1WMQgdYBvD1ZlCLWuVQ4nfw q9JTP3LUpbEQLjGqT2UUVit RBeXGMqmRgeZTutb920FZS8 BuSoTQ4hE9Vdq4B8qF7svNV iQCXntBJgQaFaEEGqga6niS EgUBvaw7JqHNI5hxI4xMSmh OQmZMOfPM00Fjhkx8WsScfh RHP0WTUzgcFho0Hbc2hpBuU chzAxH4xiY9DiRILiBHXaFD ZsQaAnvzVcs9Sco6LnxUDjz Jz9u1rkXFCmGEYolXzpl7ee KRU4AVGuC1U0jDImx9abBDf aTUVftYU6wnH6RDYucXJuU0 UksD2yUDAsTS3szja4i2byC OQ4YIdkDXHpVcJ2bcN2QFMt pNGmABWkfJpuRHkjv641JRE 5IwZvHECtd7MaC7CzmIpxZ2 6dzZzzZ24hPKDicLmutW0my ElcxH4eGuPoBuOuZClbuCpw bGFpblxmMVxmczIwXGxhbmc dBCPuKDaiJ0tsJzDtIFBcmE laXDmrn9YxCGQqCERaSuleb zIwXHBhciBJIGhhdmUgcGVy b78lAEvdzRPeLUYkAMteVUK keIvqn3CpN4dhRX2yP4ThoR TfzzGiezLxQRcuLZIog5k8c BNckVwda0YddAUlGL05kfNx DVHhVXU9AICdz9dtUW85isg xJmKkdA35gpDsvnDoOZLtk9 omU3ygxGHbe9Kwy5AimkAlI Ezpj3PfXK4gdDGqkuzsyNS9 MXQlfWNdoqVkpoP0iGnmYSQ agP3ulZ5whOkvwN6qJuHlCt JeQIwbMA4pSMSnO1lhuXGwM ZJsYQTwI7nnBdAxdH1imTbp OyzkrzL9CHFbbt33 Clinical Information Crohn's 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 code = colon with complication 0380003804) [K50.119]SBO (small bowel obstruction) [K56.609] Gross Description w2saqROgEPOmhZOjZfDkQKL (test code = sVRRuv2vrMJCcxQJxIxToDm 5488366196) NcZnRuYmpcdWMxXGRlZmYwe 2xjp215eGVzd1ssCWHqRlT0 xAKmSGWwgECfL092MFWsKHp jy4sfc3NyFLLixUWwu8P8ZN VDnrddrUh0mRbtT67vi6A3X dhfU9dtCMLcGOCvO8MgEY2v IHDeTfi4RVV8OPX7VHDuDKC zT1FhEA2iVGKjfUVcLDd7f8 oubJpmEMEiIRR2i4cyYEqwr yExXS3nvz2fgXk9s5rlyvIs QKHcLLArjBTDBQNsE9LduZm bFb4ybUq6dYpcRwtePDE5Un j7WL5kns35kuw0wLjoGFMmq zcqUtN1UNsiNJVgmhcvJFv0 RRtlSHQquROqCSHqfDCcB7O jTTnzUZ3whsm5QsDpSV7bkq okUJowRDEzGJH8MfNjOFQqs 7StgadtOhEdga3mas09XPS6 e5BmuOavEBR2MFC5EyQrXh4 rsNWuVLCkXX4pXjHqwUUqSI Zkem27hSxhXNygxaEohF6tC nXbATPpzNVvEKMwPJ4zhEFr TZKtkT7vrgecODMmTuNrizw lCOEuaMvwexHtXv1idBhrEQ P3WAhxR7djfJ2lVxP4SKkuV 1xmrL0gYDj0EPzonLS1ECMx dN8dJG2auwufq2dsMKJ4XKp tKABbnbQ5xdVfABZqrZGiM8 SuhE29IiYznEQeJ0VlyR8dM YgtYDRkczn6JrDaDg4mrSBd wPK4ONjvHwlgCXxrFFTgbdO vbnRccGduZGVjXHBsYWluXH BsYWluXGYwXGZzMjRccWxcc BjrqA0aYwKdXcRsCEatZN4t PSIwQ7qqlUZqNWMhMSXeZ7w eOcZepQ2vhChjGAuvtfDcBX NwZWNpbWVuIEEgaXMgcmVjZ Ns7LFOlpC1bCt0lyTFltP5n xNHaFCdqXZT5rUFwLCRbZHX dPTShRA41W8AxneOyCCpgHC ychhYgWnQoZEXjDKJnt82wz vdorDqix6VnW3OxlE4obAIj IN0xXGGhqzHnx5NaWK7cXSR im62zsTpsTs90TIshk6KrcS VudCAoNjYuOCBjbSBpbiBsZ A7ntLbxmCNrqQSvRYXicdKx QE9ypJ5sLRNox59gRp31ZM7 tEx4dXIHmCZA6fIQjRGW7eS CaiIGpVVWpoWMxKEz1ZTf1V fgiY08qtH5ruMFvX7RyCCig OX55WVVyAEddNEVqGJ9doPX yKSBhbmQgcHJveGltYWwgY2 UcgC8uJNIyPZAeLNWsq2Xnj OIeoBLyMU4upY2fcUEalGZu VKRwPWEdAGN1cmPefqM0NIX wTGKmHSPbTM0wljYtUEfsRm OpwbEtH3Zvg3JekDBjjJmmd XGkCNVjrl08B7emaWYlwPCy siUeUG9suPszo3z7mXV4zDQ svKSkSPFeWAYatZ1fUKIcq1 gnyICvLHZpAOLucWL7MLrxz BIqK4txdg5nGFnrUMJnJASu rQJlUDqdJC1rZR0nUDOthfG kXS7wb4ClrWFvoNVjcOi7OX GiASKompOvvARdTP5ihnZkI UrzXyOvoG5noxIwXLIrnmFp bnRzIHdpdGggYSBkYXJrLWJ cq4edUNUaTUQ4GX2wWBRzuI Opk7BmGUM1QFDvY7Ysh6Mrp VB2rVxvi01pj9RdNC4wUUZu SF9mKTmxhyVsUFNmSI96mEE ghQqfFGQsr8WrsOPiiAYkQH WsxDsdb9yjJQ2cDHCbKUFdO DAuMSBjbSBpbiBncmVhdGVz hOFyjP5bgoCva79nUYfwA7U 6NOEaTLTryWycKKXpn7OhvX VwcQG7fI0cTo0wtFDsNt3vL ERdl49bVPIxRCXbiu8rw3n3 VNqxPG76iBItLADyPScmTFM ccGFyIFRoZSBhcHBlbmRpeC SuIPCpGZ6pVYL6XSPzFYGbx KFobJ04INVvq7usHXPkN6tw UQFmAICgSAOeDF6gfZfpVWY bUGQ3PLQqGsBszNwlEG7eLG DzbKLrWWZapjnvy12gj2LuG RKwdv2oGXD6yKWqAYGeHDVt GO6wJK74cJZhEx0lGBewF06 uO9GmjTgmfs0uZEhfISRmcK GoVUu5FJvfYFCpxsqhpCo9V DQpW2Qur70cINX3vgAqDDCd KJwzjXVrJEhpjR3rND1rqNE dY3Z3KGX8ytAwX2WkACjlxP gnHRLjfA6jggRwdDMhqX8oj CBkaWFtZXRlciAwLjIgLSAw TjUfE28eVRZmqJltMCA1bXY wXYPyt9xhZALdO5VxOD9zyD VyaWFsLiBXYWxsIHRoaWNrb zDatyIiMM4aKRRlDoWtbGAl AnExHOUaRtWvX79nCJBorRM jz7VlcSX0fAKySVFxR2Cqg8 1uEPRhAKDfnLRhgVD0QKSnh B3vLLPnMIVsHffuDTBjuWWb PIZaT8Rpl30qZ80aYBlpeHV hDTJkIRMmQdPrng10oT2jbI RewXL4aSAbIQNarO0nLCWsR LGqI4EugNNuTMYvVgBztTO1 IYljM4HpSXbnjIEmN1kiRKU rRKIcYLLcsfJcrKz4OTftTT BfIUJ2EHvjOC0dBVWamHS2I Ej0XNwkzuMmazIqTH46ZHZk yxIqrGGlHGQ6OqHkSYVjDEY jbeHqqTe2PEDjOJO2zO8yfk WoNvB0QLumOURpVCrgK2g8H BTuy0Fbv6utGSHtf0j9wFDw vVReHFM7FNQ8IsXuGCQrLKG svfMukGu3ZVKvLVJ1cD9beh VbDwV0AKlhSFLgpQFzbGN7B CMyz1LymTUfiOdyqSs3SZEg j76myPQxhGbtPWpkjR5gJNi fzONpFAIxqtWYYXH4KAZgG1 Gij89uPN2sFHUamEEmHLi2N EHfRKpiY6k7IVZfNOHhKA2q nXDfFDfyy3SfWkdbIYPfrS2 dVGFfCcy9ARnoMEJskHAhh0 WzwZF2qJSjVIGnm6IbWRNmR 0Zba77yZARmSUIsotFfimLx EwurHIT7WRMbaUwqAFPmnwd xGEHiSm1sVC2gJLTqkHEtIO PJIQF8jKZiumLeEYDsamQSF HRoMX20dmicpyGYCBGiAAS4 bE3hg2lmd7AoEbZMk1Unm4P hbnQpXHBhcn0= Embedded Images (test code = 2341726136) [facility] METABOLIC PANEL (NA, K, CL, CO2, GLUCOSE, BUN, CREATININE, CA)2020-07-30 11:29:00 Test Item Value Reference Range Interpretation Comments NA (test code = 136 mmol/L 135-145 7011540667) K (test code = 3.8 mmol/L 3.5-5 Slight 9219405672) hemolysis CL (test code = 102 mmol/L 98-108 0732454191) CO2 TOTAL (test code 25 mmol/L 23-31 = 2147157042) AGAP (test code = 2-16 9620318896) BUN (test code = 2 mg/dL 7-23 L Slight 9484995420) hemolysis GLUCOSE (test code = 182 mg/dL 70-110 H 7407268273) CREATININE (test code 0.68 mg/dL 0.5-1.04 = 4662953851) CALCIUM (test code = 9.0 mg/dL 8.6-10.6 1111206110) eGFR Calculation mL/min/1.73m2 (Non-) (test code = 8586307468) eGFR Calculation mL/min/1.73m2 () (test code = 8296951781) RAUDEL (test code = RAUDEL) Association of [...] tests). Lab Interpretation Abnormal (test code = 69359-9) [facility] Test Item Value Reference Range Interpretation Comments MAGNESIUM (test code = 1353897392) 1.4 mg/dL 1.7-2.4 L Lab Interpretation (test code = Abnormal 98783-2) [facility] 11:29:00 Test Item Value Reference Range Interpretation Comments PHOSPHORUS (test code = 1678964070) 3.6 mg/dL 2.5-5 Lab Interpretation (test code = Normal 35423-9) [facility] [id number] 14:01:19EXAM: XR KUB 07/29/2020 4:42 AM. INDICATION: [...] minor modifications (no call needed tothe referring p aziza). IShahriar MD., have reviewed this study and agree with theabove report.[facility],Radiant Results Inft User - 07/29/2020 9:02 AM [...] minor modifications (no call needed tothe referring physician).Shahriar Caban MD., have reviewed this study and agree with theabove report.[facility] (NA, K, CL, CO2, GLUCOSE, BUN, CREATININE, CA)2020-07-29 12:26:00 Test Item Value Reference Range Interpretation Comments NA (test code = 137 mmol/L 135-145 9304784494) K (test code = 3.4 mmol/L 3.5-5 L 4524173299) CL (test code = 102 mmol/L 98-108 1784491276) CO2 TOTAL (test code = 31 mmol/L 23-31 3546854490) AGAP (test code = 2-16 5803971451) BUN (test code = 3 mg/dL 7-23 L 7521336867) GLUCOSE (test code = 118 mg/dL 70-110 H 5686651252) CREATININE (test code = 0.81 mg/dL 0.5-1.04 9099397857) CALCIUM (test code = 9.4 mg/dL 8.6-10.6 0597541315) eGFR Calculation mL/min/1.73m2 (Non-) (test code = 0915069287) eGFR Calculation mL/min/1.73m2 () (test code = 3212229223) RAUDEL (test code = RAUDEL) Association of [...] tests). Lab Interpretation Abnormal (test code = 73890-3) [facility]2020-[facility]14 11:05:00 Test Item Value Reference Range Interpretation Comments Fibrinogen (test code = 1089 mg/dL 167-453 H 1534324782) Lab Interpretation (test code = Abnormal 93205-2) [facility]2020-09-14 10:58:00 Test Item Value Reference Range Interpretation Comments APTT Patient (test code = See_Comment [ Automated message] 3173-2) The system Cursogram generated this result transmitted ref erence range: 26 - 36 Seconds. The re ference range was not u sed to interpret this result as normal/abnor mal. Lab Interpretation (test Normal code = 94803-1) [facility] CenterPROTHR[facility] / [id number] 10:58:00 Test Item Value Reference Range Interpretation Comments PROTIME PATIENT (test See_Comment [Auto mated message] code = 5964-2) The system YODIL generated this result transmitted ref erence range: 10.1 - 1 2.6 Seconds. The re ference range was not u sed to interpret this result as normal/abnor mal. INR (test code = 6301-6) Nor mal INR <1.1; Warfarin Therap eutic range 2.0 to 3. 0 or 2.5 to 3.5, dep ending upon the indica tions. Lab Interpretation (test Normal code = 91675-1) [facility] CenterCBC WITHOUT [id number] 10:54:00 Test Item Value Reference Range Interpretation Comments WBC (test code = 6690-2) See_Comment [A utomated message] The system Cursogram generated this result transmit carl reference range : 4.30 - 11.10 10*3/?L. The reference range was not used to interpret this result as normal/abnormal . RBC (test code = 789-8) See_Comment L [Au tomated message] The system Cursogram generated this result transmit carl reference range [...] 777-3) See_Comment [Au tomated message] The system Cursogram generated this result transmit carl reference range : 166 - 358 10*3/?L. The reference range was not used to interpret this result as normal/abnormal . MPV (test code = 10.0 fL 9.5-12.9 79044-4) RDW-CV (test code = 12.0 % 12-15.5 788-0) RDW-SD (test code = 43.2 fL 39-49.9 82993-7) NRBC x10^3 (test code = <0.01 See_Comment [Au tomated message] 3929054986) The system Cursogram generated this result transmit carl reference range : 10*3/?L. The reference range was not used to interpret this result as normal/abnormal . NRBC/100 WBC (test code See_Comment [Au tomated message] = 0268766778) The system Gen[employer] generated this result transmit carl reference range : 0.0 - 10.0 /100 WBC s. The reference r madelin was not used to interpret this result as normal/abnormal . IPF % (test code = 1596969044) Lab Interpretation (test Abnormal code = 41469-5) [facility]BL[facility] [id number] 22:01:00 Test Item Value Reference Range Interpretation Comments Blood Culture-Aerobic No organisms No growth Previo us (test code = 20952-3) isolated prelim inary verified result was Culture [...] Culture-Anaerobic isolated preliminar y (test code = 07703-7) verifi ed result was Culture In Progress [...] CDT Lab Interpretation Normal (test code = 79072-9) [facility] [id number] 22:01:00 Test Item Value Reference Range Interpretation Comments Blood Culture-Aerobic No organisms No growth Previo us (test code = 33743-3) isolated prelim inary verified result was Culture [...] Culture-Anaerobic isolated preliminar y (test code = 61679-6) verifi ed result was Culture In Progress [...] CDT Lab Interpretation Normal (test code = 39709-9) [facility] (NA, K, CL, CO2, GLUCOSE, BUN, CREATININE, CA)2020-07-28 12:34:00 Test Item Value Reference Range Interpretation Comments NA (test code = 135 mmol/L 135-145 2280372177) K (test code = 3.6 mmol/L 3.5-5 5275133386) CL (test code = 105 mmol/L 98-108 2072760358) CO2 TOTAL (test code = 24 mmol/L 23-31 0065883152) AGAP (test code = 2-16 0950781687) BUN (test code = 3 mg/dL 7-23 L 7413322544) GLUCOSE (test code = 132 mg/dL 70-110 H 4334409560) CREATININE (test code = 0.68 mg/dL 0.5-1.04 3824491429) CALCIUM (test code = 8.6 mg/dL 8.6-10.6 0904328019) eGFR Calculation mL/min/1.73m2 (Non-) (test code = 5162518919) eGFR Calculation mL/min/1.73m2 () (test code = 7941185667) RAUDEL (test code = RAUDEL) Association of [...] tests). Lab Interpretation Abnormal (test code = 20663-3) [facility] WITHOUT [id number] 10:46:00 Test Item Value Reference Range Interpretation Comments WBC (test code = 6690-2) See_Comment [A utomated message] The system Cursogram generated this result transmit carl reference range : 4.30 - 11.10 10*3/?L. The reference range was not used to interpret this result as normal/abnormal . RBC (test code = 789-8) See_Comment L [Au tomated message] The system [employer] generated this result transmit carl reference range [...] 777-3) See_Comment [Au tomated message] The system [employer] generated this result transmit carl reference range : 166 - 358 10*3/?L. The reference range was not used to interpret this result as normal/abnormal . MPV (test code = 10.0 fL 9.5-12.9 14611-1) RDW-CV (test code = 12.0 % 12-15.5 788-0) RDW-SD (test code = 42.5 fL 39-49.9 90894-2) NRBC x10^3 (test code = <0.01 See_Comment [Au tomated message] 3205356254) The system [employer] generated this result transmit carl reference range : 10*3/?L. The reference range was not used to interpret this result as normal/abnormal . NRBC/100 WBC (test code See_Comment [Au tomated message] = 8953022155) The system [facility] generated this result transmit carl reference range : 0.0 - 10.0 /100 WBC s. The reference r madelin was not used to interpret this result as normal/abnormal . IPF % (test code = 3965868458) Lab Interpretation (test Abnormal code = 25103-9) [facility] METABOLIC PANEL (NA, K, CL, CO2, GLUCOSE, BUN, CREATININE, CA)2020-07-27 11:40:00 Test Item Value Reference Range Interpretation Comments NA (test code = 134 mmol/L 135-145 L 4286152138) K (test code = 3.7 mmol/L 3.5-5 7928602024) CL (test code = 104 mmol/L 98-108 6462357668) CO2 TOTAL (test code = 29 mmol/L 23-31 1521664066) AGAP (test code = 2-16 L 6977070736) BUN (test code = 7 mg/dL 7-23 0011491309) GLUCOSE (test code = 169 mg/dL 70-110 H 8802576204) CREATININE (test code = 0.63 mg/dL 0.5-1.04 9604036472) CALCIUM (test code = 8.3 mg/dL 8.6-10.6 L 0361061992) eGFR Calculation mL/min/1.73m2 (Non-) (test code = 5712138340) eGFR Calculation mL/min/1.73m2 () (test code = 2596700207) RAUDEL (test code = RAUDEL) Association of [...] tests). Lab Interpretation Abnormal (test code = 82290-0) [facility] WITHOUT [id number] 11:18:00 Test Item Value Reference Range Interpretation Comments WBC (test code = 6690-2) See_Comment H [A utomated message] The system [employer] generated this result transmit carl reference range : 4.30 - 11.10 10*3/?L. The reference range was not used to interpret this result as normal/abnormal . RBC (test code = 789-8) See_Comment L [Au tomated message] The system [employer] generated this result transmit carl reference range [...] 777-3) See_Comment [Au tomated message] The system [employer] generated this result transmit carl reference range : 166 - 358 10*3/?L. The reference range was not used to interpret this result as normal/abnormal . MPV (test code = 10.8 fL 9.5-12.9 46822-3) RDW-CV (test code = 11.9 % 12-15.5 L 788-0) RDW-SD (test code = 43.5 fL 39-49.9 36406-7) NRBC x10^3 (test code = <0.01 See_Comment [Au tomated message] 1172405765) The system [employer] generated this result transmit carl reference range : 10*3/?L. The reference range was not used to interpret this result as normal/abnormal . NRBC/100 WBC (test code See_Comment [Au tomated message] = 7506859597) The system [employer] generated this result transmit carl reference range : 0.0 - 10.0 /100 WBC s. The reference r madelin was not used to interpret this result as normal/abnormal . IPF % (test code = 6504699519) Lab Interpretation (test Abnormal code = 89853-4) [facility] METABOLIC PANEL (NA, K, CL, CO2, GLUCOSE, BUN, CREATININE, CA)2020-07-26 09:39:00 Test Item Value Reference Range Interpretation Comments NA (test code = 136 mmol/L 135-145 7390018498) K (test code = 3.9 mmol/L 3.5-5 9308848933) CL (test code = 104 mmol/L 98-108 4598976250) CO2 TOTAL (test code = 28 mmol/L 23-31 3987664371) AGAP (test code = 2-16 9677990653) BUN (test code = 11 mg/dL 7-23 2362114911) GLUCOSE (test code = 136 mg/dL 70-110 H 2230169327) CREATININE (test code = 0.84 mg/dL 0.5-1.04 9549392169) CALCIUM (test code = 8.2 mg/dL 8.6-10.6 L 3072420127) eGFR Calculation mL/min/1.73m2 (Non-) (test code = 0197856227) eGFR Calculation mL/min/1.73m2 () (test code = 7545888813) RAUDEL (test code = RAUDEL) Association of [...] tests). Lab Interpretation Abnormal (test code = 89132-3) [facility] WITHOUT [id number] 08:44:00 Test Item Value Reference Range Interpretation Comments WBC (test code = 6690-2) See_Comment [A utomated message] The system [employer] generated this result transmit carl reference range : 4.30 - 11.10 10*3/?L. The reference range was not used to interpret this result as normal/abnormal . RBC (test code = 789-8) See_Comment L [Au tomated message] The system [employer] generated this result transmit carl reference range [...] See_Comment L [Au tomated message] The system [employer] generated this result transmit carl reference range : 166 - 358 10*3/?L. The reference range was not used to interpret this result as normal/abnormal . MPV (test code = 11.0 fL 9.5-12.9 12645-1) RDW-CV (test code = 11.8 % 12-15.5 L 788-0) RDW-SD (test code = 42.4 fL 39-49.9 62279-5) NRBC x10^3 (test code = <0.01 See_Comment [Au tomated message] 4225456968) The system [employer] generated this result transmit carl reference range : 10*3/?L. The reference range was not used to interpret this result as normal/abnormal . NRBC/100 WBC (test code See_Comment [Au tomated message] = 2577184694) The system [employer] generated this result transmit carl reference range : 0.0 - 10.0 /100 WBC s. The reference r madelin was not used to interpret this result as normal/abnormal . IPF % (test code = 6393124686) Lab Interpretation (test Abnormal code = 72898-4) [facility] METABOLIC PANEL (NA, K, CL, CO2, GLUCOSE, BUN, CREATININE, CA)2020-07-26 00:48:00 Test Item Value Reference Range Interpretation Comments NA (test code = 137 mmol/L 135-145 6847542198) K (test code = 4.5 mmol/L 3.5-5 7978412750) CL (test code = 102 mmol/L 98-108 0467358804) CO2 TOTAL (test code = 28 mmol/L 23-31 5345269009) AGAP (test code = 2-16 1563331767) BUN (test code = 13 mg/dL 7-23 0939294477) GLUCOSE (test code = 165 mg/dL 70-110 H 1140533596) CREATININE (test code = 0.92 mg/dL 0.5-1.04 4003858373) CALCIUM (test code = 8.5 mg/dL 8.6-10.6 L 5729102077) eGFR Calculation mL/min/1.73m2 (Non-) (test code = 2205641237) eGFR Calculation mL/min/1.73m2 () (test code = 0666804350) RAUDEL (test code = RAUDEL) Association of [...] tests). Lab Interpretation Abnormal (test code = 77915-0) [facility] Test Item Value Reference Range Interpretation Comments MAGNESIUM (test code = 1493470153) 1.5 mg/dL 1.7-2.4 L Lab Interpretation (test code = Abnormal 83028-5) [facility] CenterPROTHROM[facility] / [id number] 00:29:00 Test Item Value Reference Range Interpretation Comments PROTIME PATIENT (test See_Comment H [Auto mated message] code = 5964-2) The system [employer] generated this result transmitted ref erence range: 10.1 - 1 2.6 Seconds. The reference range was not used to int erpret this result as normal/abnormal . INR (test code = 6301-6) Nor mal INR <1.1; Warfarin Therap eutic range 2.0 to 3. 0 or 2.5 to 3.5, dep ending upon the indica tions. Lab Interpretation (test Abnormal code = 86480-6) [facility] 00:29:00 Test Item Value Reference Range Interpretation Comments APTT Patient (test code = See_Comment [ Automated message] 3173-2) The system [employer] generated this result transmitted ref erence range: 26 - 36 Seconds. The re ference range was not u sed to interpret this result as normal/abnor mal. Lab Interpretation (test Normal code = 00381-3) [facility]CB WITHOUT [id number] 00:24:00 Test Item Value Reference Range Interpretation Comments WBC (test code = 6690-2) See_Comment H [A utomated message] The system [employer] generated this result transmit carl reference range : 4.30 - 11.10 10*3/?L. The reference range was not used to interpret this result as normal/abnormal . RBC (test code = 789-8) See_Comment L [Au tomated message] The system [employer] generated this result transmit carl reference range [...] 777-3) See_Comment [Au tomated message] The system [employer] generated this result transmit carl reference range : 166 - 358 10*3/?L. The reference range was not used to interpret this result as normal/abnormal . MPV (test code = 10.8 fL 9.5-12.9 98778-0) RDW-CV (test code = 12.0 % 12-15.5 788-0) RDW-SD (test code = 44.0 fL 39-49.9 80179-6) NRBC x10^3 (test code = <0.01 See_Comment [Au tomated message] 4684055544) The system [employer] generated this result transmit carl reference range : 10*3/?L. The reference range was not used to interpret this result as normal/abnormal . NRBC/100 WBC (test code See_Comment [Au tomated message] = 0240112289) The system [employer] generated this result transmit carl reference range : 0.0 - 10.0 /100 WBC s. The reference r madelin was not used to interpret this result as normal/abnormal . IPF % (test code = 2723826460) Lab Interpretation (test Abnormal code = 31986-4) [facility] METABOLIC PANEL (NA, K, CL, CO2, GLUCOSE, BUN, CREATININE, CA)2020-07-25 12:05:00 Test Item Value Reference Range Interpretation Comments NA (test code = 137 mmol/L 135-145 7125656308) K (test code = 4.0 mmol/L 3.5-5 4751074524) CL (test code = 104 mmol/L 98-108 1506874126) CO2 TOTAL (test code = 28 mmol/L 23-31 8686621862) AGAP (test code = 2-16 3428604801) BUN (test code = 13 mg/dL 7-23 3432443474) GLUCOSE (test code = 207 mg/dL 70-110 H 4632808793) CREATININE (test code = 0.79 mg/dL 0.5-1.04 7092575202) CALCIUM (test code = 8.5 mg/dL 8.6-10.6 L 7137313182) eGFR Calculation mL/min/1.73m2 (Non-) (test code = 0307082616) eGFR Calculation mL/min/1.73m2 () (test code = 2994381885) RAUDEL (test code = RAUDEL) Association of [...] tests). Lab Interpretation Abnormal (test code = 73351-8) [facility] WITHOUT [id number] 12:02:00 Test Item Value Reference Range Interpretation Comments WBC (test code = 6690-2) See_Comment H [A utomated message] The system [employer] generated this result transmit carl reference range : 4.30 - 11.10 10*3/?L. The reference range was not used to interpret this result as normal/abnormal . RBC (test code = 789-8) See_Comment L [Au tomated message] The system [employer] generated this result transmit carl reference range [...] 777-3) See_Comment [Au tomated message] The system [employer] generated this result transmit carl reference range : 166 - 358 10*3/?L. The reference range was not used to interpret this result as normal/abnormal . MPV (test code = 10.9 fL 9.5-12.9 12498-7) RDW-CV (test code = 12.1 % 12-15.5 788-0) RDW-SD (test code = 43.3 fL 39-49.9 92713-9) NRBC x10^3 (test code = <0.01 See_Comment [Au tomated message] 9218366576) The system [employer] generated this result transmit carl reference range : 10*3/?L. The reference range was not used to interpret this result as normal/abnormal . NRBC/100 WBC (test code See_Comment [Au tomated message] = 5466029731) The system [employer] generated this result transmit carl reference range : 0.0 - 10.0 /100 WBC s. The reference r madelin was not used to interpret this result as normal/abnormal . IPF % (test code = 7846414078) Lab Interpretation (test Abnormal code = 52550-4) [facility] CenterABORH [id number] 08:01:35 Test Item Value Reference Range Interpretation Comments ABO & RH (test code A Positive Performe d at [facility] = 20) Laboratory Serv [facility] s [address]Uayu Free: [phone] A No. [id number] [facility] CenterType and Screen - ONCE [id number] 05:04:45 Test Item Value Reference Range Interpretation Comments ABO & RH (test code A POSITIVE Performe d at [facility] = 20) Laboratory Serv [facility] s [address]Stcr Free: [phone] A No. [id number] IAT (test code = Negative Performed a t [facility] 1185) Laboratory Serv [facility]3 [address] [place], [place] [address]ryan marquez [address]Ccwx Free: [phone] A No. [id number] [facility] CenterXR ABDOMEN 1 [id number] 13:39:15EXAM: XR ABDOMEN 1 VW 07/24/2020 1:46 [...] Resident: Neda Sanchez reviewed this study and agree.Shahriar Caban MD., have reviewed this study and agree with theabove report.[facility] (NA, K, CL, CO2, GLUCOSE, BUN, CREATININE, CA)2020-07-24 08:29:00 Test Item Value Reference Range Interpretation Comments NA (test code = 137 mmol/L 135-145 2437583195) K (test code = 4.1 mmol/L 3.5-5 Slight 9248558796) hemolysis CL (test code = 102 mmol/L 98-108 1278911570) CO2 TOTAL (test code 24 mmol/L 23-31 = 9184215875) AGAP (test code = 2-16 4646871082) BUN (test code = 19 mg/dL 7-23 Slight 4443753858) hemolysis GLUCOSE (test code = 170 mg/dL 70-110 H 6133762191) CREATININE (test code 0.93 mg/dL 0.5-1.04 = 3750656666) CALCIUM (test code = 8.9 mg/dL 8.6-10.6 2099869307) eGFR Calculation mL/min/1.73m2 (Non-) (test code = 4818270772) eGFR Calculation mL/min/1.73m2 () (test code = 7080700881) RAUDEL (test code = RAUDEL) Association of [...] tests). Lab Interpretation Abnormal (test code = 01417-5) [facility] WITHOUT [id number] 08:27:00 Test Item Value Reference Range Interpretation Comments WBC (test code = See_Comment H [Automated message] 6690-2) The system [employer] generated this result transmitted ref erence range: 4.30 - 1 1.10 10*3/?L. The reference range was not used to int erpret this result as normal/abnormal . RBC (test code = 789-8) See_Comment [Au tomated message] The system [facility] generated this result transmitted ref erence range: [...] 777-3) See_Comment [Au tomated message] The system [facility] generated this result transmitted ref erence range: 166 - 35 8 10*3/?L. The reference range was not used to int erpret this result as normal/abnormal . MPV (test code = 11.0 fL 9.5-12.9 75806-5) RDW-CV (test code = 12.0 % 12-15.5 788-0) RDW-SD (test code = 41.5 fL 39-49.9 53972-8) NRBC x10^3 (test code = <0.01 See_Comment [Au tomated message] 4784215834) The system [employer] generated this result transmitted ref erence range: 10*3/?L. The reference range was not used to int erpret this result as normal/abnormal . NRBC/100 WBC (test code See_Comment [Au tomated message] = 6479439110) The system [facility] generated this result transmitted ref erence range: 0.0 - 10 .0 /100 WBCs. The reference range was not used to int erpret this result as normal/abnormal . IPF % (test code = 5.7 % 1.3-7.7 Platelet count 7193632598) measured by fluorescence me thod. Lab Interpretation Abnormal (test code = 39069-5) [facility] CenterCOVID[facility] (ID NOW RAPID TESTING)2020-07-24 01:08:00 Test Item Value Reference Range Interpretation Comments SARS-CoV-2 Rapid ID NOW Not Detected Not Detected (test code = 83624-0) RAUDEL (test code = RAUDEL) ID NOW COVID-19 Assay is an isothermal nucleic acid amplification test intended for the qualitative detection of nucleic acid from SARS-CoV-2 viral RNA in nasopharyngeal (RN ACCESS) specimens. It is used under Emergency Use [...] indicated. Lab Interpretation Normal (test code = 74709-4) [facility] CenterLactic Acid Whole [id number] 00:34:00 Test Item Value Reference Range Interpretation Comments LACTIC ACID (test code = 3.03 mmol/L 5265065654) [facility] CenterLactic Acid Whole [id number] 21:59:00 Test Item Value Reference Range Interpretation Comments LACTIC ACID (test code = 2.30 mmol/L 4079787168) [facility] CenterCT ABDOMEN PELVIS W [id number] 21:22:06CT Abdomen and Pelvis with intravenous contrast. [...] visualized, however, findings are not suggestive ofacute appendicitis.[facility] Metabolic Panel (NA, K, CL, CO2, GLUCOSE, BUN, CREATININE, CA)2020-07-23 20:11:00 Test Item Value Reference Range Interpretation Comments NA (test code = 137 mmol/L 135-145 3581279959) K (test code = 3.3 mmol/L 3.5-5 L 4634308899) CL (test code = 97 mmol/L 98-108 L 0344889295) CO2 TOTAL (test code = 25 mmol/L 23-31 0206158340) AGAP (test code = 2-16 2201711693) BUN (test code = 18 mg/dL 7-23 8247361616) GLUCOSE (test code = 236 mg/dL 70-110 H 1141856265) CREATININE (test code = 0.94 mg/dL 0.5-1.04 6984251046) CALCIUM (test code = 10.4 mg/dL 8.6-10.6 6611804172) eGFR Calculation mL/min/1.73m2 (Non-) (test code = 5222180983) eGFR Calculation mL/min/1.73m2 () (test code = 6559750412) RAUDEL (test code = RAUDEL) Association of [...] tests). Lab Interpretation Abnormal (test code = 84957-9) [facility] CenterHepatic Function Panel (ALB, T.PRO, BILI T, BU/BC, ALT, AST, ALK PHOS)2020-07-23 20:11:00 Test Item Value Reference Range Interpretation Comments TOTAL BILI (test code = 6128514622) 1.0 mg/dL 0.1-1.1 BILI UNCON (test code = 7270222301) 1.0 mg/dL 0.1-1.1 BILI CONJ (test code = 8699418249) 0.0 mg/dL 0-0.3 T PROTEIN (test code = 1218463717) 8.9 g/dL 6.3-8.2 H ALBUMIN (test code = 9822692518) 4.7 g/dL 3.5-5 ALK PHOS (test code = 0472585906) 77 U/L 34-122 ALTv (test code = 1742-6) 19 U/L 5-35 AST(SGOT) (test code = 9991070292) 24 U/L 13-40 Lab Interpretation (test code = Abnormal 60918-3) [facility] CenterLipase [id number] 20:11:00 Test Item Value Reference Range Interpretation Comments LIPASE (test code = 1898730196) 26 U/L 0-220 Lab Interpretation (test code = Normal 20067-7) [facility] CenterCBC with [id number] 19:48:00 Test Item Value Reference Range Interpretation Comments WBC (test code = See_Comment H [Automated 8990-2) message] The system which generated this result transmit carl reference range : 4.30 - 11.10 10*3/?L. The reference range was not used to interpret this result as normal/abnormal . RBC (test code = See_Comment H [Automated 885-8) message] The system which generated this result [...] RDW-SD (test code = 39.7 fL 39-49.9 59896-9) RDW-CV (test code = 11.5 % 12-15.5 L 788-0) PLT (test code = See_Comment [Automated 777-3) message] The system which generated this result transmit carl reference range : 166 - 358 10*3/ ?L. The reference range was not u sed to interpret th is result as normal/abnormal . MPV (test code = 10.4 fL 9.5-12.9 06671-1) NRBC/100 WBC (test See_Comment [Automat ed code = 5535405842) message] The system which generated this result transmit carl reference range : 0.0 - 10.0 /100 WBCs. The reference range was not used to interpret this result as normal/abnormal . NRBC x10^3 (test code <0.01 See_Comment [Auto mated = 4803281523) message] The system which generated this result transmit carl reference range : 10*3/?L. The reference range was not used to interpret this result as normal/abnormal . GRAN MAT (NEUT) % 90.3 % (test code = 770-8) IMM GRAN % (test code 0.50 % = 1410654449) LYMPH % (test code = 5.4 % 736-9) MONO % (test code = 3.7 % 5905-5) EOS % (test code = 0.0 % 713-8) BASO % (test code = 0.1 % 706-2) GRAN MAT x10^3(ANC) 12.67 10*3/uL 1.88-7.09 H (test code = 5385427706) IMM GRAN x10^3 (test 0.07 10*3/uL 0-0.06 H code = 5524233181) LYMPH x10^3 (test code 0.76 10*3/uL 1.32-3.29 L = 731-0) MONO x10^3 (test code 0.52 10*3/uL 0.33-0.92 = 742-7) EOS x10^3 (test code = <0.03 0.03-0.39 L 711-2) BASO x10^3 (test code <0.03 0.01-0.07 = 704-7) Lab Interpretation Abnormal (test code = 48586-4) [facility] CenterUrinalysis2020-09-08 19:37:00 Test Item Value Reference Range Interpretation Comments APPEARANCE (test code = Hazy Clear A 9935410347) COLOR (test code = Kathleen Yellow A 7821218789) PH (test code = 4.8-8.0 2547066255) SP GRAVITY (test code = 1.003-1.030 H 3118241348) GLU U QUAL (test code = 50 mg/dL Normal A 6388250811) BLOOD (test code = Negative Negative 2265213178) KETONES (test code = 80 mg/dL Negative A 9182597423) PROTEIN (test code = 100 mg/dL Negative A 2887-8) UROBILIN (test code = Normal Normal 0234886342) BILIRUBIN (test code = Negative Negative 9793743212) NITRITE (test code = Negative Negative 7700769929) LEUK CHELY (test code = Negative Negative 1670597287) RBC/HPF (test code = See_Comment [Autom ated message] 7668817486) The system [employer] generated this result transmit carl reference range : 0 - 3 HPF. The refe rence range was not u sed to interpret th is result as normal/abnormal . WBC/HPF (test code = See_Comment [Autom ated message] 9928234741) The system [employer] generated this result transmit carl reference range : 0 - 5 HPF. The refe rence range was not u sed to interpret th is result as normal/abnormal . BACTERIA (test code = Few Negative A 4638982942) MUCOUS (test code = Marked Negative LPF A 9792626787) SQ EPITH (test code = HPF 0769546348) Lab Interpretation (test Abnormal code = 02883-7) [facility] CenterCT [facility]BDOMEN PELVIS W [id number] 18:53:08CT Abdomen and Pelvis with intravenous contrast. [...] acute intra- abdominal or intrapelvic pathology detected. [facility], Radiant Results Inft User - 06/15/2019 1:53 [...] Unremarkable.CONCLUSION: No acute intra-abdominal or intrapelvic pathology detected.[facility] Metabolic Panel (NA, K, CL, CO2, GLUCOSE, BUN, CREATININE, CA)2019-06-15 18:17:00 Test Item Value Reference Range Interpretation Comments NA (test code = 140 mmol/L 135-145 9473662722) K (test code = 3.5 mmol/L 3.5-5 6299594369) CL (test code = 105 mmol/L 98-108 1375547896) CO2 TOTAL (test code = 25 mmol/L 23-31 3853347226) AGAP (test code = 2-16 3347471429) BUN (test code = 10 mg/dL 7-23 8696622308) GLUCOSE (test code = 162 mg/dL 70-110 H 1756059797) CREATININE (test code = 0.81 mg/dL 0.5-1.04 9757012442) CALCIUM (test code = 8.7 mg/dL 8.6-10.6 2561386374) eGFR Calculation mL/min/1.73m2 (Non-) (test code = 9906940759) eGFR Calculation mL/min/1.73m2 () (test code = 6809739368) RAUDEL (test code = RAUDEL) Association of [...] tests). Lab Interpretation Abnormal (test code = 87112-1) [facility] CenterHep[facility] (ALB, T.PRO, BILI T, BU/BC, ALT, AST, ALK PHOS)2019-06-15 18:17:00 Test Item Value Reference Range Interpretation Comments TOTAL BILI (test code = 9336715308) 0.7 mg/dL 0.1-1.1 BILI UNCON (test code = 6874161153) 0.6 mg/dL 0.1-1.1 BILI CONJ (test code = 9685024449) 0.0 mg/dL 0-0.3 T PROTEIN (test code = 4762462294) 7.7 g/dL 6.3-8.2 ALBUMIN (test code = 9254873022) 4.2 g/dL 3.5-5 ALK PHOS (test code = 1069126000) 59 U/L 34-122 ALT(SGPT) (test code = 8389599385) 16 U/L 9-51 AST(SGOT) (test code = 2404372173) 20 U/L 13-40 Lab Interpretation (test code = Normal 05548-8) [facility] CenterLipase [id number] 18:17:00 Test Item Value Reference Range Interpretation Comments LIPASE (test code = 4896851976) 48 U/L 0-220 Lab Interpretation (test code = Normal 55344-9) [facility] CenterUrinalysis2019-08-01 18:06:00 Test Item Value Reference Range Interpretation Comments APPEARANCE (test code Slightly Hazy Clear A = 9708712639) COLOR (test code = Yellow Yellow 9556009616) PH (test code = 4.8-8.0 7272607093) SP GRAVITY (test code >=1.030 1.003-1.030 = 1684497967) GLU U QUAL (test code Negative Negative = 4165877995) BLOOD (test code = Negative Negative 3994677526) KETONES (test code = Negative Negative 6524590387) PROTEIN (test code = Negative Negative 2887-8) UROBILIN (test code = 0.2 mg/dL See_Comment [Auto mated 0255510163) message] The system which generated this result transmit carl reference range : 0-1.0 mg/dL. Th e reference range was not used to interpret this result as normal/abnormal . BILIRUBIN (test code = Negative Negative 7130800216) NITRITE (test code = Negative Negative 5405681215) LEUK CHELY (test code Negative Negative = 9897636174) RBC/HPF (test code = See_Comment [Autom ated 3802041533) message] The system which generated this result transmit carl reference range : 0 - 3 HPF. The reference range was not used to interpret this result as normal/abnormal . WBC/HPF (test code = See_Comment [Autom ated 5694011817) message] The system which generated this result transmit carl reference range : 0 - 5 HPF. The reference range was not used to interpret this result as normal/abnormal . BACTERIA (test code = Moderate Negative A 1312854249) MUCOUS (test code = Moderate Negative LPF A 1069084726) SQ EPITH (test code = HPF 4374287774) CA OXALATE (test code See_Comment H [Auto mated = 0638848886) message] The system which generated this result transmit carl reference range : <=1 HPF. The reference range was not used to interpret this result as normal/abnormal . Lab Interpretation Abnormal (test code = 06500-7) [facility] [id number] 17:57:00 Test Item Value Reference Range Interpretation Comments LACTIC ACID (test code = 1.94 mmol/L 0.5-2.2 7552842508) Lab Interpretation (test code = Normal 40527-8) [facility] WITH [id number] 17:56:00 Test Item Value Reference Range Interpretation [...] RDW-SD (test code = 41.2 fL 39-49.9 72120-8) RDW-CV (test code = 11.7 % 12-15.5 L 788-0) PLT (test code = See_Comment [Automated 777-3) message] The sy stem which generated this result transmitted reference range : 166 - 358 10*3/ ?L. The reference r madelin was not used to interpret this result as normal/abnormal . MPV (test code = 10.0 fL 9.5-12.9 59975-8) NRBC/100 WBC (test See_Comment [Automat ed code = 9574738210) message] The system which generated this result transmitted reference range : 0.0 - 10.0 /100 WBCs. The refer ence range was not u sed to interpret th is result as normal/abnormal . NRBC x10^3 (test code <0.01 See_Comment [Auto mated = 0057145841) message] The s ystem which generated this result transmitted reference range : 10*3/?L. The reference range was not used to interpret this result as normal/abnormal . GRAN MAT (NEUT) % 72.9 % (test code = 770-8) IMM GRAN % (test code 0.10 % = 3655688911) LYMPH % (test code = 21.6 % 736-9) MONO % (test code = 4.3 % 5905-5) EOS % (test code = 0.7 % 713-8) BASO % (test code = 0.4 % 706-2) GRAN MAT x10^3(ANC) 4.88 10*3/uL 1.88-7.09 (test code = 4508980621) IMM GRAN x10^3 (test <0.03 0-0.06 code = 7310841656) LYMPH x10^3 (test code 1.45 10*3/uL 1.32-3.29 = 731-0) MONO x10^3 (test code 0.29 10*3/uL 0.33-0.92 L = 742-7) EOS x10^3 (test code = 0.05 10*3/uL 0.03-0.39 711-2) BASO x10^3 (test code 0.03 10*3/uL 0.01-0.07 = 704-7) Lab Interpretation Abnormal (test code = 27328-1) [facility], [id number] 17:24:00 Test Item Value Reference Range Interpretation Comments POCT PREG (test code = 1605) negative On board controls acceptable with present C Line (test code = 3574) POCT PREG LOT # (test code = 3575) [id number] POCT PREG TEST DATE (test 11/14/20 code = 3576) Lab Interpretation (test code = Normal 38678-0) [facility]"
[2022-08-02] MEDS ORDERED: METHYLPREDNISOLONE 125 MG INJ ONE (21:11)
[2022-08-02] MEDS ORDERED: HYDROMORPHONE HCL 1 MG/ML INJ ONE ×2 (21:12→23:44)
[2022-08-02] MEDS ORDERED: DIPHENHYDRAMINE 50 MG/ML VIAL ONE ×2 (21:12→23:44)
[2022-08-02] MEDS ORDERED: NA CHLORIDE 0.9% 1,000 ML ONE (21:22)
[2022-08-02 21:23] LABS: Absolute Lymphocytes (CBC) 2.4 K/uL (0.7-4.9); Hematocrit 41.1 % (36.0-45.0); MCV 94.4 fL (80-100); MPV 8.2 fL (7.6-11.3); RBC Red Blood Cell Count 4.35 M/uL (3.86-4.86)
[2022-08-02 21:33] LABS: Albumin 3.9 g/dL (3.4-5.0); Bilirubin Total 0.5 mg/dL (0.2-1.0); Potassium 3.8 mmol/L (3.5-5.1); Protein, Total 8.4 g/dL (6.4-8.2)
[2022-08-02] MEDS ORDERED: PROMETHAZINE INJ 25 MG/ML AMP ONE (21:38)
[2022-08-02] MEDS ORDERED: PANTOPRAZOLE 40 MG INJ ONE (21:59)
--- NOTE | 2022-08-02 22:16 | ER ---
Nurse's Notes [facility] Name: Jessica Stearns Age: 46 yrs Sex: Female : 1975 Arrival Date: 08/02/2022 Time: 20:08 Bed 17 Private MD: Diagnosis: Tinea pedis;Crohn's disease, unspecified, without complications;Tinea manuum Presentation: 08/02 20:15 Chief complaint: N/V/D and abdominal pain since this morning. Also c/o rash on soles of hb feet and palms x 2-3 weeks. Coronavirus screen: At this time, the client does not indicate any symptoms associated with coronavirus-19. Ebola Screen: No symptoms or risks identified at this time. Risk Assessment: Do you want to hurt yourself or someone else? Patient reports no desire to harm self or others. Onset of symptoms was August 02, 2022. 20:15 Method Of Arrival: Wheelchair hb 20:15 Acuity: EVELIA 3 hb 20:16 Initial Sepsis Screen: Does the patient meet any 2 criteria? No. Patient's initial hb sepsis screen is negative. Does the patient have a suspected source of infection? No. Patient's initial sepsis screen is negative. Historical: - Allergies: 20:16 Bentyl; hb 20:16 Butalbital Compound; hb 20:16 Demerol; hb 20:16 Fentanyl; hb 20:16 Ketorolac; hb 20:16 Morphine; hb 20:16 Reglan; hb 20:16 Sulfa (Sulfonamide Antibiotics); hb 20:16 Talwin; hb 20:16 Toradol; hb 20:16 Zofran; hb - PMHx: 20:16 Crohn's; gastritis; ibs; hb - PSHx: 20:16 Appendectomy; colon resection; Colostomy and reversal; hb - Immunization history:: Adult Immunizations up to date. - Social history:: Smoking status: Patient denies any tobacco usage or history of. Screenin:19 Abuse screen: Denies threats or abuse. Nutritional screening: No deficits noted. ja4 Tuberculosis screening: No symptoms or risk factors identified. Fall Risk IV access (20 points). Assessment: 21:19 General: Appears uncomfortable, slender, Behavior is cooperative, appropriate for age. ja4 Pain: Complains of pain in abdomen Pain currently is 10 out of 10 on a pain scale. Neuro: No deficits noted. GI: Reports lower abdominal pain, upper abdominal pain, cramping, intolerance of fluids, intolerance of food, nausea. Vital Signs: 20:16 BP 143 / 97; Pulse 92; Resp 20; Temp 97.8(TE); Pulse Ox 100% on R/A; Weight 59.87 kg; hb Height 5 ft. 7 in. (170.18 cm); Pain 10/10; 08/03 00:28 BP 105 / 63; Pulse 78; Resp 16; Pulse Ox 98% on R/A; ja4 08/02 20:16 Body Mass Index 20.67 (59.87 kg, 170.18 cm) hb ED Course: 08/02 20:08 Patient arrived in ED. am2 20:13 Melissa [facility]NP-C [facility] kb 20:13 Christ Gentile DO is Attending Physician. kb 20:16 Triage completed. hb 20:16 Arm band placed on. hb 20:28 Andi Shaikh, RN is Primary Nurse. ja4 20:35 Patient has correct armband on for positive identification. Bed in low position. Call mh5 light in reach. Side rails up X 1. Warm blanket given. Pulse ox on. NIBP on. 20:35 Missed attempt(s): 20 gauge in right antecubital area. mh5 21:19 Inserted saline lock: 20 gauge in right upper arm, using aseptic technique. Blood ja4 collected. 08/03 00:28 IV discontinued, intact, bleeding controlled, No redness/swelling at site. Pressure ja4 dressing applied. Administered Medications: 08/02 21:18 Drug: SOLU-Medrol (methylPrednisoLONE) 125 mg Route: IVP; Site: right upper arm; ja4 21:18 Drug: NS 0.9% 1000 ml Route: IV; Rate: 1000 ml; Site: right upper arm; ja4 21:18 Drug: Benadryl (diphenhydrAMINE) 12.5 mg Route: IVP; Site: right upper arm; ja4 21:18 Drug: Dilaudid (HYDROmorphone) 1 mg Route: IVP; Site: right upper arm; ja4 21:39 Drug: Phenergan (promethazine) 12.5 mg Route: IVP; Site: right upper arm; ja4 22:28 Drug: ProTONIX (pantoprazole) 40 mg Route: IVP; Site: right upper arm; ja4 Medication: 21:19 VIS not applicable for this client. ja4 Outcome: 22:15 Discharge ordered by MD. burgos 08/03 00:28 Discharged to home via wheelchair. ja4 Condition: good Discharge instructions given to patient, Instructed on discharge instructions, follow up and referral plans. medication usage, Demonstrated understanding of instructions, follow-up care, medications. 00:31 Patient left the ED. ja4 Signatures: Melissa David, BREAKER MACHINE TENDER-C GISELLA-Erica Wright, RN RN Liliana Grant [facility] Andi Shaikh RN RN [email or web address]
--- NOTE | 2022-08-02 22:16 | EDPHYS ---
Physician Documentation [facility] Name: Jessica Stearns Age: 46 yrs Sex: Female : 1975 Arrival Date: 08/02/2022 Time: 20:08 Bed 17 Private MD: ED Physician Christ Gentile HPI: 08/02 22:39 This 46 yrs old Black Female presents to ER via Wheelchair with complaints of Abdominal kb Pain, Nausea/Vomiting/Diarrhea, Rash - hands. 22:39 The patient presents with abdominal pain that is diffuse. Onset: The symptoms/episode kb began/occurred this morning, at 05:00. The symptoms do not radiate. Associated signs and symptoms: Pertinent positives: nausea, vomiting, and diarrhea. The symptoms are described as constant. Modifying factors: The symptoms are alleviated by nothing, the symptoms are aggravated by nothing. Severity of pain: At its worst the pain was mild in the emergency department the pain is unchanged. The patient has experienced similar episodes in the past, chronically. The patient has not recently seen a physician. Pt reports n/v/d and abd pain that started at 0500. States this is similar to previous crohns flareups. States she also has had an ithcy, burning rash to palms of hands and bottom of right foot for 2 months. . Historical: - Allergies: 20:16 Bentyl; hb 20:16 Butalbital Compound; hb 20:16 Demerol; hb 20:16 Fentanyl; hb 20:16 Ketorolac; hb 20:16 Morphine; hb 20:16 Reglan; hb 20:16 Sulfa (Sulfonamide Antibiotics); hb 20:16 Talwin; hb 20:16 Toradol; hb 20:16 Zofran; hb - PMHx: 20:16 Crohn's; gastritis; ibs; hb - PSHx: 20:16 Appendectomy; colon resection; Colostomy and reversal; hb - Immunization history:: Adult Immunizations up to date. - Social history:: Smoking status: Patient denies any tobacco usage or history of. ROS: 22:36 Constitutional: Negative for fever, chills, and weight loss. kb 22:36 Abdomen/GI: Positive for abdominal pain, nausea, vomiting, and diarrhea. 22:36 Skin: Positive for rash, of the right hand, left hand and right foot. 22:36 All other systems are negative. Exam: 22:36 Constitutional: This is a well developed, well nourished patient who is awake, alert, kb and in no acute distress. Head/Face: Normocephalic, atraumatic. ENT: Moist Mucous membranes Cardiovascular: Regular rate and rhythm with a normal S1 and S2. No gallops, murmurs, or rubs. No pulse deficits. Respiratory: Respirations even and unlabored. No increased work of breathing. Talking in full sentences Abdomen/GI: Soft, non-tender. No distention MS/ Extremity: Pulses equal, no cyanosis. Neurovascular intact. Full, normal range of motion. Neuro: Awake and alert, GCS 15, oriented to person, place, time, and situation. Moves all extremities. Normal gait. 22:36 Skin: rash a mild rash is noted, rash can be described as cracked, peeling skin, on the right foot and left hand and right hand. Vital Signs: 20:16 BP 143 / 97; Pulse 92; Resp 20; Temp 97.8(TE); Pulse Ox 100% on R/A; Weight 59.87 kg; hb Height 5 ft. 7 in. (170.18 cm); Pain 10/10; 08/03 00:28 BP 105 / 63; Pulse 78; Resp 16; Pulse Ox 98% on R/A; ja4 08/02 20:16 Body Mass Index 20.67 (59.87 kg, 170.18 cm) hb MDM: 08/02 20:19 Patient medically screened. kb 22:36 Data reviewed: vital signs, nurses notes. Data interpreted: Pulse oximetry: on room air kb is 100 %. Interpretation: normal. Counseling: I had a detailed discussion with the patient and/or guardian regarding: the historical points, exam findings, and any diagnostic results supporting the discharge/admit diagnosis, lab results, the need for outpatient follow up, a family practitioner, to return to the emergency department if symptoms worsen or persist or if there are any questions or concerns that arise at home. 22:37 ED course: Pt educated on fungal appearance of rash and to use antifungal cream. Pt kb states she is concerned about an infection because it gets red and hot to touch at times. States she wants to try an antibiotic because it has been there for 2 months.. 09/18 20:19 Order name: CBC with Diff; Complete Time: 22:52 kb 08/02 20:19 Order name: CMP; Complete Time: 21:36 kb 08/02 20:19 Order name: Lipase; Complete Time: 21:36 kb 08/02 21:27 Order name: Manual Differential; Complete Time: 22:52 EDMS 08/02 20:19 Order name: IV Saline Lock; Complete Time: 21:18 kb 08/02 20:19 Order name: Labs collected and sent; Complete Time: 21:19 kb Administered Medications: 21:18 Drug: SOLU-Medrol (methylPrednisoLONE) 125 mg Route: IVP; Site: right upper arm; ja4 21:18 Drug: NS 0.9% 1000 ml Route: IV; Rate: 1000 ml; Site: right upper arm; ja4 21:18 Drug: Benadryl (diphenhydrAMINE) 12.5 mg Route: IVP; Site: right upper arm; ja4 21:18 Drug: Dilaudid (HYDROmorphone) 1 mg Route: IVP; Site: right upper arm; ja4 21:39 Drug: Phenergan (promethazine) 12.5 mg Route: IVP; Site: right upper arm; ja4 22:28 Drug: ProTONIX (pantoprazole) 40 mg Route: IVP; Site: right upper arm; ja4 Disposition Summary: 08/02/22 22:15 Discharge Ordered Location: Home kb Condition: Stable kb Diagnosis - Tinea pedis kb - Crohn's disease, unspecified, without complications kb - Tinea manuum kb Followup: kb - With: Emergency Department - When: As needed - Reason: Worsening of condition Followup: kb - With: Private Physician - When: 2 - 3 days - Reason: Recheck today's complaints, Continuance of care, Re-evaluation by your physician Discharge Instructions: - Discharge Summary Sheet kb - Crohn's Disease kb - Athlete's Foot, [id number] kb Forms: - Medication Reconciliation Form kb - Thank You Letter kb - Antibiotic Education kb - Prescription Opioid Use kb Prescriptions: - Cephalexin 500 mg Oral Capsule - take 1 capsule by ORAL route every 8 hours for 7 days; 21 capsule; Refills: 0, kb Product Selection Permitted - Prednisone 20 mg Oral Tablet - take 1 tablet by ORAL route once daily for 5 days; 5 tablet; Refills: 0, kb Product Selection Permitted - promethazine 25 mg Oral Tablet - take 1 tablet by ORAL route every 6 hours As needed; 20 tablet; Refills: 0, kb Product Selection Permitted Addendum: 08/04/2022 03:24 Co-signature as Attending Physician, Christ Gentile DO. m s3 Signatures: Dispatcher [employer] EDMelissa Alfonso, GISELLA-C SUPERVISOR INTELLIGENCE ANALYST-CkErica Waddell RN RN Christ Gentile DO DO ms3 Andi Shaikh RN RN ja4
[2022-08-02 22:50] LABS: Blood Morphology Comment NOT SEEN (NOT SEEN); Platelet Estimate ADEQ
[2022-08-03] MEDS ORDERED: PROMETHAZINE INJ 25 MG/ML AMP ONE (00:08)
[2022-08-04 09:31] VITALS: TEMP 97.8
[2022-08-04 09:34] VITALS: BP 105/63; O2SAT 98
== END 2022-08-03 00:31 | disposition home or self-care (01) ==
LOC: ER 20:05
DX: K50.90 Crohn's disease, unspecified, without complications (principal); B35.3 Tinea pedis; B35.2 Tinea manuum
CPT/HCPCS: 36415; 80053; 83690; 85025; 96374; 96375; 99284; C9113; J1170; J1200; J2550; J2930; J7030

== ENCOUNTER 2022-08-11 04:55 | Emergency (ER) | payer SELFPAY ==
--- OUTSIDE RECORDS SUMMARY | 2022-08-11 05:11 | XMS REPORT | Continuity of Care Document ---
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 capsule by ity of capsule 00:00: 05:59 mouth 3 [place] 00 :00 (three) Medical times Branch daily for 14 days. gabapentin 2019- 2020- No [id number] 300mg Take 1 [facility] 300 mg 2-05 [...] s: acute pain ALPRAZolam 2019- 2020- No [id number] 2mg Take 1 [facility] 2 mg tablet 2- 12-13 tablet by it y of 00:00: 05:59 mouth 2 [place] 00 :00 (two) Medical times Branch daily for 7 days. ALPRAZolam 2019-11 2020- No [id number] 2mg Take 1 Univers 2 mg tablet 2- 12-13 tablet by it y of 00:00: 05:59 mouth 2 [place] 00 :00 (two) Medical times Branch daily for 7 days. simethicone 2019- 2020- No [id number] 80mg Take 1 [facility] 80 mg 2- 12-11 tablet by ity of chewable 00:00: 05:59 mouth [place] tablet 00 :00 after Medical meals and Branch at bedtime for 5 days. simethicone 2019- 2020- No [id number] 80mg Take 1 [facility] 80 mg 2- 12-11 tablet by ity of chewable 00:00: 05:59 mouth [place] tablet 00 :00 after Medical meals and Branch at bedtime for 5 days. ibuprofen 2019-11 2020- No [id number] 600mg Take 1 [facility] 600 mg 2- 12-10 tablet by ity of tablet 00:00: 00:00 mouth [place] 00 :00 every 6 Medical (six) Branch hours as needed for Pain (scale 1-3). simethicone 2019- 2020- No [id number] 80mg Take 1 [facility] 80 mg 2- 12-10 tablet by ity of chewable 00:00: 00:00 mouth [place] tablet 00 :00 after Medical meals and Branch at bedtime for 5 days. gabapentin 2019-11 2020- No [id number] 300mg Take 1 [facility] 300 mg 2-05 12-10 capsule by ity of capsule 00:00: 00:00 mouth 3 [place] 00 :00 (three) Medical times Branch daily for 14 days. ALPRAZolam 2019- 2020- No [id number] 2mg Take 1 [facility] 2 mg tablet 2- 12-10 tablet by it y of 00:00: 00:00 mouth 2 [place] 00 :00 (two) Medical times Branch daily for 7 days. proMETHazin 2019- 2020- No [id number] 25mg Take 1 [facility] e 25 mg 12-20 tablet by ity of tablet 00:00: 00:00 mouth [place] 00 :00 every 8 Medical (eight) Branch hours as needed for Nausea and Vomiting (N/V). proMETHazin 2019-11 2020- No [id number] 25mg Take 1 [facility] e 25 mg 12-20 tablet by ity of tablet 00:00: 00:00 mouth [place] 00 :00 every 4 Medical (four) Branch hours as needed for Nausea and Vomiting (N/V) for up to 7 days. HYDROmorpho 2019-11 Yes 1mg 1 mg, Slow Univers ne 204 IV Push, ity of (DILAUDID) 02:56: Q6HPRN, [place] injection 1 33 Starting Medi ryann mg [facility] 10/17/20 at 6, Until Discontinu ed, Routine, Pain (scale 7-10)
U se approved by (Faculty): GENERAL SURGERY
General surgeon approving: Darren Chun ALPRAZolam 2019-11 Yes .25mg 0.25 mg, Un thor (XANAX) 204 Oral, BID, ity of tablet 0.25 02:00: First dose [place] mg 00 on [facility] 10/17/20 at Branch 1999, Until Discontinu ed, Routine HYDROcodone 2019-11- No 5mg 5 mg, Univ ers -acetaminop 12-1804 Oral, Q4H, i ty of hen (HYCET) 22:00: 22:24 First dose [place] 7.5-325 00 :22 (after Medical mg/15 mL last Branch solution 5 modificati mg on) on [facility] 10/17/20 at 1600, Until Discontinu ed, Routine bisacodyL 2019-11 Yes 10mg 10 mg, Univer s (DULCOLAX) 03 Rectal, ity of suppository 03:00: QHSPRN, [place] 10 mg 00 Starting Medical [facility] 10/16/20 at 2100, Until Discontinu ed, [...] dose Medi ryann 1,000 mg on Wed [place] 10/16/20 at 1400, Until Discontinu ed, Routine [...] at 1200, Until Discontinu ed, Routine bisacodyL 2019-11- No 10mg 10 mg, Unive rs (DULCOLAX) 12-17 Rectal, ity o f suppository 15:45: 14:55 ONCE, 1 [place] 10 mg 00 :00 dose, Wed Medical 10/16/20 at Branch 0945, Routine melatonin 2019-11 Yes 3mg 3 mg, Univers (MELATIN) 12-17 Oral, QHS, ity of tablet 3 mg 03:00: First dose [place] 00 on Medical 10/15/20 at Branch 2100, Until Discontinu ed, Routine acetaminoph 2019-11 2020- No 650mg 650 mg, U nivers en 12-16 Oral, Q8H, ity of (TYLENOL) 20:00: 14:59 First dose [place] 160 mg/5 mL 00 :29 on Wed Medica l liquid 650 10/15/20 at [facility] mg 1400, Until Discontinu ed, Routine HYDROcodone 2019-11 2020- No 5mg 5 mg, Univ ers -acetaminop 12-16 Oral, Q6H, i ty of hen (HYCET) 18:00: 19:51 First dose [place] 7.5-325 00 :24 (after Medical mg/15 mL last Branch solution 5 modificati mg on) on [facility] 10/15/20 at 1200, Until Discontinu ed, Routine HYDROMORPHO 2019-11 2020- No Unive rs NE FINISHER HOT STRIP 12-16 ity of 6MG/30ML 17:00: 14:57 [place] 00 :48 Medical Branch NaCl 0.9% 2019-11 Yes 10mL 10 mL, Univer s (NS) 12-16 Slow IV ity of injection 16:51: Push, [place]N, [place] 10 mL 43 Starting Medical [facility] 10/15/20 at 1051, Until Discontinu ed, Routine, line maintenanc e enoxaparin 2019-11 Yes 40mg 40 mg, Unive rs (LOVENOX) 12-16 Subcutaneo ity of injection 15:00: us, Q24H, [place] 40 mg 00 First dose Medical on [facility] 10/15/20 at 0900, Until Discontinu ed, Routine sennosides 2019-11 2020- No 8.6mg 8.6 mg, Un thor (SENOKOT) 12-16 Oral, ity of tablet 8.6 15:00: 19:51 DAILY, [place] mg 00 :23 First dose Medical on [facility] 10/15/20 at 0900, Until Discontinu ed, Routine docusate 2019-11 2020- No 100mg 100 mg, Univ ers (COLACE) 12-16 Oral, ity of capsule 100 15:00: 19:51 DAILY, [place] mg 00 :23 First dose Medical on [facility] 10/15/20 at 0900, Until Discontinu [...] mg in 05 Starting Medical NaCl 0.9% [facility] Branch (NS) 50 mL 10/14/20 IV at 2156, piggyback Until Discontinu ed, Routine, Nausea and Vomiting (N/V) HYDROMORPHO 2019-11 2020- No Unive rs NE FINISHER HOT STRIP 12-16 ity of 6MG/30ML 03:00: 16:54 [place] [...] First dose [place] tablet 25 00 on [facility] Medical mg 10/14/20 Branch at 1999, Until [...] ity of (fixed 17:30: 01:59 [place] dose) FINISHER HOT STRIP 00 :31 Medical injection Branch lactated 2019-11- [...] IV ity of (BENADRYL) 16:32: 18:15 Push, [place] injection 01 :20 Q4HPRN, Medical 12.5 mg Starting Branch Wed10/14/20 at 1032, Until Wed10/14/20 at 1215, Routine, Itching, PACU HYDROmorpho 2019-11- No .2mg 0.2 mg, Un thor ne 12-14 Slow IV ity of (DILAUDID) 16:32: 18:15 Push, [place] injection 00 :20 Q5MIN PRN, Medi ryann [...] 40 mg 35 times Medical delayed-rel daily. [place] ease suspension Pantoprazol 2019-11 Yes 40mg Take [...] Branch ease suspension opium 10 2019-11 Yes [id number] 1mL Take 1 mL Univers mg/mL 1-13 by mouth ity of (morphine) 00:00: every 6 [place] tincture 00 (six) Medical hours. Branch opium 10 2019-11 Yes [id number] 1mL Take 1 mL [facility] mg/mL 1-13 by mouth ity of (morphine) 00:00: every 6 [place] tincture 00 (six) Medical hours. Branch opium 10 2019-11 Yes [id number] 1mL Take 1 mL [facility] mg/mL 1-13 by mouth ity of (morphine) 00:00: every 6 [place] tincture 00 (six) Medical hours. Branch opium 10 2019-11 Yes [id number] 1mL Take 1 mL [facility] mg/mL 1-13 by mouth ity of (morphine) 00:00: every 6 [place] tincture 00 (six) Medical hours. Branch opium 10 2019-11 Yes [id number] 1mL Take 1 mL Univers mg/mL 1-13 by mouth ity of (morphine) 00:00: every 6 [place] tincture 00 (six) Medical hours. Branch opium 10 2019-11 Yes [id number] 1mL Take 1 mL [facility] mg/mL 1-13 by mouth ity of (morphine) 00:00: every 6 [place] tincture 00 (six) Medical hours. Branch opium 10 2019-11 Yes [id number] 1mL Take 1 mL [facility] mg/mL 1-13 by mouth ity of (morphine) 00:00: every 6 [place] tincture 00 (six) Medical hours. Branch opium 10 2019-11 Yes [id number] 1mL Take 1 mL [facility] mg/mL 1-13 by mouth ity of (morphine) 00:00: every 6 [place] tincture 00 (six) Medical hours. Branch opium 10 2019-11 Yes [id number] 1mL Take 1 mL [facility] mg/mL 1-13 by mouth ity of (morphine) 00:00: every 6 [place] tincture 00 (six) Medical hours. Branch opium 10 2019-11 Yes [id number] 1mL Take 1 mL [facility] mg/mL 1-13 by mouth ity of (morphine) 00:00: every 6 [place] tincture 00 (six) Medical hours. Branch opium 2019-11 Yes [id number] 1mL Take 1 mL [facility] mg/mL 1-13 by mouth ity of (morphine) 00:00: every 6 [place] tincture 00 (six) Medical hours. Branch opium 10 2019-11 Yes [id number] 1mL Take 1 mL [facility] mg/mL 1-13 by mouth ity of (morphine) 00:00: every 6 [place] tincture 00 (six) Medical hours. Branch opium 2019-11 Yes [id number] 1mL Take 1 mL [facility] mg/mL 1-13 by mouth ity of (morphine) 00:00: every 6 [place] tincture 00 (six) Medical hours. Branch opium 2019-11 Yes [id number] 1mL Take 1 mL [facility] mg/mL 1-13 by mouth ity of (morphine) 00:00: every 6 [place] tincture 00 (six) Medical hours. Branch opium 2019-11 Yes [id number] 1mL Take 1 mL [facility] mg/mL 1-13 by mouth ity of (morphine) 00:00: every 6 [place] tincture 00 (six) Medical hours. Branch opium 2019-11 Yes [id number] 1mL Take 1 mL [facility] mg/mL 1-13 by mouth ity of (morphine) 00:00: every 6 [place] tincture 00 (six) Medical hours. Branch opium 10 2019-11 Yes [id number] 1mL Take 1 mL [facility] mg/mL 1-13 by mouth ity of (morphine) 00:00: every 6 [place] tincture 00 (six) Medical hours. Branch opium 10 2019-11 Yes [id number] 1mL Take 1 mL [facility] mg/mL 1-13 by mouth ity of (morphine) 00:00: every 6 [place] tincture 00 (six) Medical hours. Branch opium 10 2019-11 Yes [id number] 1mL Take 1 mL [facility] mg/mL 1-13 by mouth ity of (morphine) 00:00: every 6 [place] tincture 00 (six) Medical hours. Branch opium 10 2019-11 Yes [id number] 1mL Take 1 mL [facility] mg/mL 1-13 by mouth ity of (morphine) 00:00: every 6 [place] tincture 00 (six) Medical hours. Branch opium 10 2019-11 Yes [id number] 1mL Take 1 mL [facility] mg/mL 1-13 by mouth ity of (morphine) 00:00: every 6 [place] tincture 00 (six) Medical hours. Branch opium 10 2019-11 Yes [id number] 1mL Take 1 mL [facility] mg/mL 1-13 by mouth ity of (morphine) 00:00: every 6 [place] tincture 00 (six) Medical hours. Branch opium 2019-11 Yes [id number] 1mL Take 1 mL [facility] mg/mL 1-13 by mouth ity of (morphine) 00:00: every 6 [place] tincture 00 (six) Medical hours. Branch opium 10 2019-11 Yes [id number] 1mL Take 1 mL [facility] mg/mL 1-13 by mouth ity of (morphine) 00:00: every 6 [place] tincture 00 (six) Medical hours. Branch opium 10 2019-11 Yes [id number] 1mL Take 1 mL [facility] mg/mL 1-13 by mouth ity of (morphine) 00:00: every 6 [place] tincture 00 (six) Medical hours. Branch opium 10 2019-11 Yes [id number] 1mL Take 1 mL Univers mg/mL 1-13 by mouth ity of (morphine) 00:00: every 6 [place] tincture 00 (six) Medical hours. Branch psyllium 2019-11- No [id number] 1{packe Take 1 Univers 3.4 gram 1-13 12-14 t} Packet by ity o f packet 00:00: 05:59 mouth 3 [place] 00 :00 (three) Medical times Branch daily before meals for 30 days. psyllium 2019-11- No [id number] 1{packe Take 1 Univers 3.4 gram 1-13 12-14 t} Packet by ity o f packet 00:00: 05:59 mouth 3 [place] 00 :00 (three) Medical times Branch daily before meals for 30 days. psyllium 2019-11- No [id number] 1{packe Take 1 Univers 3.4 gram 11-27 12-14 t} Packet by ity o f packet 00:00: 05:59 mouth 3 [place] 00 :00 (three) Medical times Branch daily before meals for 30 days. psyllium 2019-11- No [id number] 1{packe Take 1 Univers 3.4 gram 11-27 12-14 t} Packet by ity o f packet 00:00: 05:59 mouth 3 [place] 00 :00 (three) Medical times Branch daily before meals for 30 days. psyllium 2019-11- No [id number] 1{packe Take 1 Univers 3.4 gram 11-27-14 t} Packet by ity o f packet 00:00: 05:59 mouth 3 [place] 00 :00 (three) Medical times Branch daily before meals for 30 days. psyllium 2019-11- No [id number] 1{packe Take 1 Univers 3.4 gram 11-27-14 t} Packet by ity o f packet 00:00: 05:59 mouth 3 [place] 00 :00 (three) Medical times Branch daily before meals for 30 days. psyllium 2019-11- No [id number] 1{packe Take 1 Univers 3.4 gram 11-27 12-14 t} Packet by ity o f packet 00:00: 05:59 mouth 3 [place] 00 :00 (three) Medical times Branch daily before meals for 30 days. psyllium 2019-11- No [id number] 1{packe Take 1 Univers 3.4 gram 11-27 12-14 t} Packet by ity o f packet 00:00: 05:59 mouth 3 [place] 00 :00 (three) Medical times Branch daily before meals for 30 days. psyllium 2019-11- No [id number] 1{packe Take 1 Univers 3.4 gram -13 12-14 t} Packet by ity o f packet 00:00: 05:59 mouth 3 [place] 00 :00 (three) Medical times Branch daily before meals for 30 days. psyllium 2019-11- No [id number] 1{packe Take 1 Univers 3.4 gram 1-13 12-14 t} Packet by ity o f packet 00:00: 05:59 mouth 3 [place] 00 :00 (three) Medical times [place] daily before meals for 30 days. psyllium 2019-11- No [id number] 1{packe Take 1 Univers 3.4 gram 1-13 12-14 t} Packet by ity o f packet 00:00: 05:59 mouth 3 [place] 00 :00 (three) Medical times [place] daily before meals for 30 days. psyllium 2019-11- No [id number] 1{packe Take 1 Univers 3.4 gram 1-13 12-14 t} Packet by ity o f packet 00:00: 05:59 mouth 3 [place] 00 :00 (three) Medical times [place] daily before meals for 30 days. psyllium 2019-11- No [id number] 1{packe Take 1 Univers 3.4 gram 1-13 12-14 t} Packet by ity o f packet 00:00: 05:59 mouth 3 [place] 00 :00 (three) Medical times [place] daily before meals for 30 days. psyllium 2019-11- No [id number] 1{packe Take 1 Univers 3.4 gram 1-13 12-14 t} Packet by ity o f packet 00:00: 05:59 mouth 3 [place] 00 :00 (three) Medical times [place] daily before meals for 30 days. psyllium 2019-11- No [id number] 1{packe Take 1 Univers 3.4 gram 1-13 12-10 t} Packet by ity o f packet 00:00: 00:00 mouth 3 [place] 00 :00 (three) Medical times [place] daily before meals for 30 days. dextroamphe 2019-11 2020- No 30mg Take 30 mg Univers tamine-amph -02 23-04 by mouth 2 i ty of etamine 23:07: 00:00 (two) [place] (ADDERALL) 54 :00 times Medical 30 mg daily. Branch tablet ALPRAZolam 2019-11 Yes 2mg Take 2 mg Un thor (XANAX) 2 1-04 by mouth 2 ity of mg tablet 23:07: (two) [place] 52 times Medical daily. Branch Pantoprazol 2019-11 [...] Yes 50mg 50 mg, Unive rs tartrate 1-04 Oral, BID, ity o f (LOPRESSOR) 02:00: First dose [place] tablet 50 00 (after Medical mg last Branch modificati on) on Wed09/17/20 at 1999, Until Discontinu ed, Routine HYDROmorpho 2019-11 2020- No .5mg 0.5 mg, Un thor ne -02 23-04 Slow IV ity of (DILAUDID) 01:15: 00:26 Push, [place] injection 00 :00 ONCE, 1 Medical 0.5 mg dose, [facility] 09/17/20 at 1915, Routine
Use approved by [...] Indication s: acute pain proMETHazin 2019-11- No [id number] 25mg Take 1 Univers e 25 mg 1-04 11-25 tablet by ity of tablet 00:00: 05:59 mouth [place] 00 :00 every 6 Medical (six) Branch hours as needed for Nausea and Vomiting (N/V) for up to 20 days. proMETHazin 2019-11 2020- No [id number] 25mg Take 1 Univers e 25 mg 1-04 11-25 tablet by ity of tablet 00:00: 05:59 mouth [place] 00 :00 every 6 Medical (six) Branch hours as needed for Nausea and Vomiting (N/V) for up to 20 days. proMETHazin 2019-11 2020- No [id number] 25mg Take 1 Univers e 25 mg 1-04 11-25 tablet by ity of tablet 00:00: 05:59 mouth [place] 00 :00 every 6 Medical (six) Branch hours as needed for Nausea and Vomiting (N/V) for up to 20 days. proMETHazin 2019-11 2020- No [id number] 25mg Take 1 Univers e 25 mg 1-04 11-25 tablet by ity of tablet 00:00: 05:59 mouth [place] 00 :00 every 6 Medical (six) Branch hours as needed for Nausea and Vomiting (N/V) for up to 20 days. proMETHazin 2019- 2020- No [id number] 25mg Take 1 Univers e 25 mg 1-04 11-25 tablet by ity of tablet 00:00: 05:59 mouth [place] 00 :00 every 6 Medical (six) Branch hours as needed for Nausea and Vomiting (N/V) for up to 20 days. proMETHazin 2019-2019- No [id number] 25mg Take 1 Univers e 25 mg 1-04 11-25 tablet by ity of tablet 00:00: 05:59 mouth [place] 00 :00 every 6 Medical (six) Branch hours as needed for Nausea and Vomiting (N/V) for up to 20 days. proMETHazin 2019-2019- No [id number] 25mg Take 1 Univers e 25 mg 1-04 11-25 tablet by ity of tablet 00:00: 05:59 mouth [place] 00 :00 every 6 Medical (six) Branch hours as needed for Nausea and Vomiting (N/V) for up to 20 days. proMETHazin 2019-11- No [id number] 25mg Take 1 Univers e 25 mg 1-04 11-25 tablet by ity of tablet 00:00: 05:59 mouth [place] 00 :00 every 6 Medical (six) Branch hours as needed for Nausea and Vomiting (N/V) for up to 20 days. proMETHazin 2019-11- No [id number] 25mg Take 1 Univers e 25 mg 1-04 11-25 tablet by ity of tablet 00:00: 05:59 mouth [place] 00 :00 every 6 Medical (six) Branch hours as needed for Nausea and Vomiting (N/V) for up to 20 days. proMETHazin 2019-11 2020- No [id number] 25mg Take 1 Univers e 25 mg 1-04 11-25 tablet by ity of tablet 00:00: 05:59 mouth [place] 00 :00 every 6 Medical (six) Branch hours as needed for Nausea and Vomiting (N/V) for up to 20 days. proMETHazin 2019-11- No [id number] 25mg Take 1 Univers e 25 mg 1-04 11-25 tablet by ity of tablet 00:00: 05:59 mouth [place] 00 :00 every 6 Medical (six) Branch hours as needed for Nausea and Vomiting (N/V) for up to 20 days. proMETHazin 2019- 2020- No [id number] 25mg Take 1 Univers e 25 mg 11-1825 tablet by ity of tablet 00:00: 05:59 mouth [place] 00 :00 every 6 Medical (six) Branch hours as needed for Nausea and Vomiting (N/V) for up to 20 days. proMETHazin 2019- 2020- No [id number] 25mg Take 1 Univers e 25 mg 11-1825 tablet by ity of tablet 00:00: 05:59 mouth [place] 00 :00 every 6 Medical (six) Branch hours as needed for Nausea and Vomiting (N/V) for up to 20 days. proMETHazin 2019- 2020- No [id number] 25mg Take 1 Univers e 25 mg [...] 18 :22 Starting Medica l tablet 1 [facility] tablet 09/14/20 at 0935, Until 09/15/20 at 0140, Routine, Pain (scale 7-10) diphenhydrA 2019-11 Yes 12.5mg 12.5 mg, Univers MINE Slow IV ity of (BENADRYL) 14:26: Push, [place] injection 59 Q6HPRN, Medical 12.5 mg Starting Branch [facility] 09/14/20 at 0926, Until Discontinu ed, Routine, Itching pantoprazol 2019-11 Yes 40mg 40 mg, Univ ers e Oral, ity of (PROTONIX) 14:00: DAILY, [place] EC tablet 00 First dose Medi ryann 40 mg on [facility] 09/14/20 at 0900, Until Discontinu ed ALPRAZolam 2019-11 Yes .5mg 0.5 mg, Univ ers (XANAX) Oral, ity of tablet 0.5 13:00: TIDPRN, [place] mg 00 Starting Medical [facility] 09/14/20 at 0800, Until Discontinu ed, Routine, anxiety clindamycin 2019-11 No 600mg 600 mg, IV Univers in 5 % 09-14 Piggyback, ity of dextrose 06:45: 19:02 Q8H ABX, [place] (CLEOCIN) 00 :12 First dose Medi ryann 600 mg/50 on [facility] Branch mL IV 09/14/20 piggyback at [...] 1 [place] 00 :[place] dose, Fri [facility] 09/13/20 Branch at 2330, Routine morpHINE 2019-11- No 4mg 4 mg, Slow Un thor injection 4 09-14 IV Push, ity of mg 04:00: 22:20 Q4HPRN, [place] 00 :01 Starting Medical Fri Branch 09/13/20 [...] No 12.5mg 12.5 mg, Univers e 0-31 11-02 IV ity of (PHENERGAN) 01:23: 18:35 Piggyback, [...] 2019-11- No 12.5mg 12.5 mg, Univers e 030 09-14 Oral, ity of (PHENERGAN) 21:52: 01:23 Q6HPRN, [place] tablet 12.5 52 :46 Starting Medi ryann mg Fri Branch 09/13/20 at 1652, Until Wed09/13/20 at 2022, Routine, Nausea and Vomiting (N/V) morpHINE 2019-11- No 2mg 2 mg, Slow Un thor injection 2 009-14 IV Push, ity of mg 21:52: 03:49 Q6HPRN, [place] 02 :41 Starting Medical Fri Branch 09/13/20 [...] 2 ity of mg tablet 21:19: (two) [place] 51 times Medical daily. Branch dextroamphe 2019- [...] 2 ity of mg tablet 21:19: (two) [place] 51 times Medical daily. Branch dextroamphe 2019-11 Yes 30mg Take 30 mg Univers tamine-amph 0-30 by mouth 2 it y of etamine 21:19: (two) [place] (ADDERALL) 51 times Medical 30 mg daily. Branch tablet Pantoprazol 2019-11 Yes 40mg Take 40 mg Univers e 0-30 by mouth 2 ity of (PROTONIX) 21:19: (two) [place] 40 mg 51 times Medical delayed-rel daily. Branch ease suspension diphenhydrA 2019-11 2020- No 12.5mg 12.5 mg, Univers MINE 0-30 10-31 Slow IV ity of (BENADRYL) 21:14: 14:27 Push, [place] injection 00 :41 Q6HPRN, Medical 12.5 mg Starting Branch Wed09/13/20 at 1614, Until 09/14/20 at 0927, Routine, Itching acetaminoph 2019-11 Yes 650mg 650 mg, Un thor en 0-30 Oral, ity of (TYLENOL) 20:56: Q6HPRN, [place] tablet 650 54 Starting Medic al mg [...] IV ity of (PF)) 19:15: 18:11 Push, [place] injection 00 :00 ONCE, 1 Medical 20 mg dose, Fri Branch 09/13/20 at 1415, LUISA methylpredn 2019-11 2020- No 125mg 125 mg, IV Univers isolone sod 0-30 10-30 Piggyback, i ty of succ 19:15: 18:06 ONCE, 1 [place] (SOLU-MEDRO 00 :00 dose, Fri Med ical L) 09/13/20 Branch injection at 1415, 125 mg STAT morpHINE 2019-11- No 4mg 4 mg, Slow Un thor injection 4 0-30 10-30 IV Push, ity of mg 18:15: 17:33 ONCE, 1 [place] 00 :00 dose, Fri Medical 09/13/20 Branch [...] mL at 0600, piggyback 50 mL morpHINE 2019- 2020- No 4mg 4 mg, Slow Un thor injection 4 0-18 10-18 IV Push, ity of mg 11:00: 09:55 ONCE, 1 [place] 00 :00 dose, [facility] 09/01/20 Branch at 0600, STAT iohexol 2019- 2020- No 120mL 120 mL, Unive rs (OMNIPAQUE 0-18 10-18 Intravenou it y of 350 08:15: 07:56 s, ONCE, 1 [place] BULK-100 00 :00 dose, [facility] mL) 09/01/20 Branch injection at 0315, 120 mL Routine NaCl 0.9% 2019-11 2020- No 1000mL at 999 Uni vers (NS) bolus 0-18 10-18 mL/hr, ity of infusion 08:00: 09:54 1,000 mL, [place] 1,000 mL 00 :00 IV Medical Infusion, Branch ONCE, 1 dose, [place] 09/01/20 at 0300, STAT diphenhydrA 2019-11- No 25mg 25 mg, Uni vers MINE 0-18 10-18 Slow IV ity of (BENADRYL) 08:00: 07:20 Push, [place] injection 00 :00 ONCE, 1 Medical 25 mg dose, [place] Branch 09/01/20 at 0300, STAT proMETHazin 2019-11- [...] 07:22 ONCE, 1 [place] 00 :00 dose, [facility] 09/01/20 Branch at 0300, STAT iohexol 2019- 2020- No 60mL 60 mL, Univers (OMNIPAQUE [...] ONCE, 1 Medical 12.5 mg dose, Fri [place] 08/23/20 at 1900, STAT morpHINE 2019-11- No [...] 1,000 mL 00 :00 IV Medical Infusion, [place] ONCE, 1 dose, [facility] 08/23/20 at 1845, STAT ALPRAZolam 2019-11 [...] e 0-04 10- Piggyback, ity of (PHENERGAN) 04:15: 04:15 ONCE, 1 [place] 25 mg in 00 :00 dose, Sat Medica l NaCl 0.9% 08/17/20 at [facility] (NS) 50 mL 2315, 50 piggyback mL morpHINE 2019-11- No 4mg 4 mg, Slow Un thor injection 4 0- 10- IV Push, ity of mg 04:15: 03:25 [...] Sat Medica l NaCl 0.9% 08/17/20 at [facility] ch (NS) 50 mL 2114, 50 piggyback mL morpHINE 2019-11- No 4mg 4 mg, Slow Un thor injection 4 0-08-18 IV Push, ity of mg 02:15: 01:24 ONCE, 1 [place] 00 :00 dose, [facility] 08/17/20 at Branch 211, STAT diphenhydrA 2019-11 2020- No 25mg 25 mg, Uni vers MINE 0-04 08-18 Slow IV ity of (BENADRYL) 02:15: 01:24 Push, [place] injection 00 :00 ONCE, 1 Medical 25 mg dose, [facility] 08/17/20 at 2115, STAT proMETHazin 2019-11 Yes [id number] 25mg Take 1 Univers e 25 mg 0-03 tablet by ity of tablet 00:00: mouth [place] 00 every 6 Medical (six) Branch hours as needed for Nausea and Vomiting (N/V). proMETHazin 2019-11 Yes [id number] 25mg Take 1 Univers e 25 mg 0-03 tablet by ity of tablet 00:00: mouth [place] 00 every 6 Medical (six) Branch hours as needed for Nausea and Vomiting (N/V). proMETHazin 2019- Yes [id number] 25mg Take 1 Univers e 25 mg 0-03 tablet by ity of tablet 00:00: mouth [place] 00 every 6 Medical (six) Branch hours as needed for Nausea and Vomiting (N/V). proMETHazin 2019-11 Yes [id number] 25mg Take 1 Univers e 25 mg 0-03 tablet by ity of tablet 00:00: mouth [place] 00 every 6 Medical (six) Branch hours as needed for Nausea and Vomiting (N/V). proMETHazin 2019- Yes [id number] 25mg Take 1 Univers e 25 mg 0-03 tablet by ity of tablet 00:00: mouth [place] 00 every 6 Medical (six) Branch hours as needed for Nausea and Vomiting (N/V). proMETHazin 2019- Yes [id number] 25mg Take 1 Univers e 25 mg 0-03 tablet by ity of tablet 00:00: mouth [place] 00 every 6 Medical (six) Branch hours as needed for Nausea and Vomiting (N/V). proMETHazin 2019-11 Yes [id number] 25mg Take 1 Univers e 25 mg 0-03 tablet by ity of tablet 00:00: mouth [place] 00 every 6 Medical (six) Branch hours as needed for Nausea and Vomiting (N/V). proMETHazin 2019-11 Yes [id number] 25mg Take 1 Univers e 25 mg 0-03 tablet by ity of tablet 00:00: mouth [place] 00 every 6 Medical (six) Branch hours as needed for Nausea and Vomiting (N/V). proMETHazin 2019-11 Yes [id number] 25mg Take 1 [facility] 25 mg 0-03 tablet by [facility] of tablet 00:00: mouth [place] 00 every 6 Medical (six) Branch hours as needed for Nausea and Vomiting (N/V). proMETHazin 2019-11 Yes [id number] 25mg Take 1 [facility] e 25 mg 0-03 tablet by it[facility] of tablet 00:00: mouth [place] 00 every 6 Medical (six) Branch hours as needed for Nausea and Vomiting (N/V). proMETHazin 2019- Yes [id number] 25mg Take 1 [facility] e 25 mg 0-03 tablet by [facility] of tablet 00:00: mouth [place] 00 every 6 Medical (six) Branch hours as needed for Nausea and Vomiting (N/V). proMETHazin 2019- Yes [id number] 25mg Take 1 [facility] e 25 mg 0-03 tablet by it[facility] of tablet 00:00: mouth [place] 00 every 6 Medical (six) Branch hours as needed for Nausea and Vomiting (N/V). proMETHazin 2019- Yes [id number] 25mg Take 1 [facility] e 25 mg 0-03 tablet by [facility] of tablet 00:00: mouth [place] 00 every 6 Medical (six) Branch hours as needed for Nausea and Vomiting (N/V). proMETHazin 2019- Yes [id number] 25mg Take 1 [facility] e 25 mg 0-03 tablet by [facility] of tablet 00:00: mouth [place] 00 every 6 Medical (six) Branch hours as needed for Nausea and Vomiting (N/V). proMETHazin 2019-1 Yes [id number] 25mg Take 1 [facility] 25 mg 0-03 tablet by [facility] of tablet 00:00: mouth [place] 00 every 6 Medical (six) Branch hours as needed for Nausea and Vomiting (N/V). proMETHazin 2019- Yes [id number] 25mg Take 1 [facility] e 25 mg 0-03 tablet by [facility] of tablet 00:00: mouth [place] 00 every 6 Medical (six) Branch hours as needed for Nausea and Vomiting (N/V). proMETHazin 2019-1 Yes [id number] 25mg Take 1 [facility] 25 mg 0-03 tablet by [facility] of tablet 00:00: mouth [place] 00 every 6 Medical (six) Branch hours as needed for Nausea and Vomiting (N/V). proMETHazin 2019-1 Yes [id number] 25mg Take 1 [facility] 25 mg 0-03 tablet by [facility] of tablet 00:00: mouth [place] 00 every 6 Medical (six) Branch hours as needed for Nausea and Vomiting (N/V). proMETHazin 2019-1 Yes [id number] 25mg Take 1 [facility] 25 mg 0-03 tablet by [facility] of tablet 00:00: mouth [place] 00 every 6 Medical (six) Branch hours as needed for Nausea and Vomiting (N/V). proMETHazin 2019- 2020- No [id number] 25mg Take 1 [facility] e 25 mg [...] s tablet 2 mg 00 Starting Medi [facility] 08/01/20 at 0700, Until Discontinu ed, Routine, Pain (scale 7-10) ibuprofen 2020-0 Yes [id number] 600mg Take 1 [facility] 600 mg 9-17 tablet by ity of tablet 00:00: mouth [place] 00 every 6 Medical (six) Branch hours. loperamide 2020-0 Yes [id number] 2mg Take 1 [facility] 2 mg 9-17 capsule by ity of capsule 00:00: mouth [place] 00 daily. Medical Branch methocarbam 2020-0 Yes [id number] 500mg Take 1 [facility] oL 500 mg 9-17 tablet by ity o f tablet 00:00: mouth 4 (four) Medical times Branch daily. ibuprofen 2020-0 Yes [id number] 600mg Take 1 [facility] 600 mg 9-17 tablet by it[facility] of tablet 00:00: mouth [place] 00 every 6 Medical (six) Branch hours. loperamide 2020-0 Yes [id number] 2mg Take 1 [facility] 2 mg 9-17 capsule by it[facility] of capsule 00:00: mouth [place] 00 daily. Medical Branch methocarbam 2020-0 Yes [id number] 500mg Take 1 [facility] oL 500 mg 9-17 tablet by ity o f tablet 00:00: mouth (four) Medical times Branch daily. ibuprofen 2020-0 Yes [id number] 600mg Take 1 [facility] 600 mg 9-17 tablet by it[facility] of tablet 00:00: mouth [place] 00 every 6 Medical (six) Branch hours. loperamide 2020-0 Yes [id number] 2mg Take 1 [facility] 2 mg 9-17 capsule by it[facility] of capsule 00:00: mouth [place] 00 daily. Medical Branch methocarbam 2020-0 Yes [id number] 500mg Take 1 [facility] oL 500 mg 9-17 tablet by ity o f tablet 00:00: mouth (four) Medical times Branch daily. ibuprofen 2020-0 Yes [id number] 600mg Take 1 [facility] 600 mg 9-17 tablet by [facility] of tablet 00:00: mouth [place] 00 every 6 Medical (six) Branch hours. loperamide 2020-0 Yes [id number] 2mg Take 1 [facility] 2 mg 9-17 capsule by ity of capsule 00:00: mouth [place] 00 daily. Medical Branch methocarbam 2020-0 Yes [id number] 500mg Take 1 [facility] oL 500 mg 9-17 tablet by ity o f tablet 00:00: mouth 4 (four) Medical times Branch daily. ibuprofen 2020-0 Yes [id number] 600mg Take 1 [facility] 600 mg 9-17 tablet by it[facility] of tablet 00:00: mouth [place] 00 every 6 Medical (six) Branch hours. loperamide 2020-0 Yes [id number] 2mg Take 1 [facility] 2 mg 9-17 capsule by it[facility] of capsule 00:00: mouth [place] 00 daily. Medical Branch methocarbam 2020-0 Yes [id number] 500mg Take 1 [facility] oL 500 mg 9-17 tablet by ity o f tablet 00:00: mouth (four) Medical times Branch daily. ibuprofen 2020-0 Yes [id number] 600mg Take 1 [facility] 600 mg 9-17 tablet by [facility] of tablet 00:00: mouth [place] 00 every 6 Medical (six) Branch hours. loperamide 2020-0 Yes [id number] 2mg Take 1 [facility] 2 mg 9-17 capsule by it[facility] of capsule 00:00: mouth [place] 00 daily. Medical Branch methocarbam 2020-0 Yes [id number] 500mg Take 1 [facility] oL 500 mg 9-17 tablet by ity o f tablet 00:00: mouth (four) Medical times Branch daily. ibuprofen 2020-0 Yes [id number] 600mg Take 1 [facility] 600 mg 9-17 tablet by ity of tablet 00:00: mouth [place] 00 every 6 Medical (six) Branch hours. loperamide 2020-0 Yes [id number] 2mg Take 1 [facility] 2 mg 9-17 capsule by ity of capsule 00:00: mouth [place] 00 daily. Medical Branch methocarbam 2020-0 Yes [id number] 500mg Take 1 [facility] oL 500 mg 9-17 tablet by ity o f tablet 00:00: mouth (four) Medical times Branch daily. ibuprofen 2020-0 Yes [id number] 600mg Take 1 [facility] 600 mg 9-17 tablet by ity of tablet 00:00: mouth [place] 00 every 6 Medical (six) Branch hours. loperamide 2020-0 Yes [id number] 2mg Take 1 [facility] 2 mg 9-17 capsule by ity of capsule 00:00: mouth [place] 00 daily. Medical Branch methocarbam 2020-0 Yes [id number] 500mg Take 1 [facility] oL 500 mg 9-17 tablet by ity o f tablet 00:00: mouth (four) Medical times Branch daily. ibuprofen 2020-0 Yes [id number] 600mg Take 1 [facility] 600 mg 9-17 tablet by ity of tablet 00:00: mouth [place] 00 every 6 Medical (six) Branch hours. loperamide 2020-0 Yes [id number] 2mg Take 1 [facility] 2 mg 9-17 capsule by ity of capsule 00:00: mouth 00 daily. Medical Branch methocarbam 2020-0 Yes [id number] 500mg Take 1 [facility] oL 500 mg 9-17 tablet by ity o f tablet 00:00: mouth 00 (four) Medical times Branch daily. ibuprofen 2020-0 Yes [id number] 600mg Take 1 [facility] 600 mg 9-17 tablet by ity of tablet 00:00: mouth [place] 00 every 6 Medical (six) Branch hours. loperamide 2020-0 Yes [id number] 2mg Take 1 [facility] 2 mg 9-17 capsule by ity of capsule 00:00: mouth 00 daily. Medical Branch methocarbam 2020-0 Yes [id number] 500mg Take 1 [facility] oL 500 mg 9-17 tablet by ity o f tablet 00:00: mouth (four) Medical times Branch daily. ibuprofen 2020-0 Yes [id number] 600mg Take 1 [facility] 600 mg 9-17 tablet by ity of tablet 00:00: mouth 00 every 6 Medical (six) Branch hours. loperamide 2020-0 Yes [id number] 2mg Take 1 [facility] 2 mg 9-17 capsule by ity of capsule 00:00: mouth 00 daily. Medical Branch methocarbam 2020-0 Yes [id number] 500mg Take 1 [facility] oL 500 mg 9-17 tablet by ity o f tablet 00:00: mouth 00 (four) Medical times Branch daily. ibuprofen 2020-0 Yes [id number] 600mg Take 1 [facility] 600 mg 9-17 tablet by ity of tablet 00:00: mouth [place] 00 every 6 Medical (six) Branch hours. loperamide 2020-0 Yes [id number] 2mg Take 1 [facility] 2 mg 9-17 capsule by ity of capsule 00:00: mouth 00 daily. Medical Branch methocarbam 2020-0 Yes [id number] 500mg Take 1 [facility] oL 500 mg 9-17 tablet by ity o f tablet 00:00: mouth 00 (four) Medical times Branch daily. ibuprofen 2020-0 Yes [id number] 600mg Take 1 [facility] 600 mg 9-17 tablet by ity of tablet 00:00: mouth [place] 00 every 6 Medical (six) Branch hours. loperamide 2020-0 Yes [id number] 2mg Take 1 [facility] 2 mg 9-17 capsule by ity of capsule 00:00: mouth [place] 00 daily. Medical Branch methocarbam 2020-0 Yes [id number] 500mg Take 1 [facility] oL 500 mg 9-17 tablet by ity o f tablet 00:00: mouth 4 00 (four) Medical times Branch daily. ibuprofen 2020-0 Yes [id number] 600mg Take 1 [facility] 600 mg 9-17 tablet by ity of tablet 00:00: mouth [place] 00 every 6 Medical (six) Branch hours. loperamide 2020-0 Yes [id number] 2mg Take 1 [facility] 2 mg 9-17 capsule by ity of capsule 00:00: mouth [place] 00 daily. Medical Branch methocarbam 2020-0 Yes [id number] 500mg Take 1 [facility] oL 500 mg 9-17 tablet by ity o f tablet 00:00: mouth 00 (four) Medical times Branch daily. ibuprofen 2020-0 Yes [id number] 600mg Take 1 [facility] 600 mg 9-17 tablet by ity of tablet 00:00: mouth [place] 00 every 6 Medical (six) Branch hours. loperamide 2020-0 Yes [id number] 2mg Take 1 [facility] 2 mg 9-17 capsule by ity of capsule 00:00: mouth [place] 00 daily. Medical Branch methocarbam 2020-0 Yes [id number] 500mg Take 1 [facility] oL 500 mg 9-17 tablet by ity o f tablet 00:00: mouth 00 (four) Medical times Branch daily. ibuprofen 2020-0 Yes [id number] 600mg Take 1 [facility] 600 mg 9-17 tablet by ity of tablet 00:00: mouth [place] 00 every 6 Medical (six) Branch hours. loperamide 2020-0 Yes [id number] 2mg Take 1 [facility] 2 mg 9-17 capsule by ity of capsule 00:00: mouth [place] 00 daily. Medical Branch methocarbam 2020-0 Yes [id number] 500mg Take 1 [facility] oL 500 mg 9-17 tablet by ity o f tablet 00:00: mouth 4 00 (four) Medical times Branch daily. ibuprofen 2020-0 Yes [id number] 600mg Take 1 [facility] 600 mg 9-17 tablet by ity of tablet 00:00: mouth [place] 00 every 6 Medical (six) Branch hours. loperamide 2020-0 Yes [id number] 2mg Take 1 [facility] 2 mg 9-17 capsule by ity of capsule 00:00: mouth [place] 00 daily. Medical Branch methocarbam 2020-0 Yes [id number] 500mg Take 1 [facility] oL 500 mg 9-17 tablet by ity o f tablet 00:00: mouth 4 00 (four) Medical times Branch daily. ibuprofen 2020-0 Yes [id number] 600mg Take 1 [facility] 600 mg 9-17 tablet by ity of tablet 00:00: mouth [place] 00 every 6 Medical (six) Branch hours. loperamide 2020-0 Yes [id number] 2mg Take 1 [facility] 2 mg 9-17 capsule by ity of capsule 00:00: mouth [place] 00 daily. Medical Branch methocarbam 2020-0 Yes [id number] 500mg Take 1 [facility] oL 500 mg 9-17 tablet by ity o f tablet 00:00: mouth (four) Medical times Branch daily. ibuprofen 2020-0 Yes [id number] 600mg Take 1 [facility] 600 mg 9-17 tablet by ity of tablet 00:00: mouth [place] 00 every 6 Medical (six) Branch hours. loperamide 2020-0 Yes [id number] 2mg Take 1 [facility] 2 mg 9-17 capsule by ity of capsule 00:00: mouth [place] 00 daily. Medical Branch methocarbam 2020-0 Yes [id number] 500mg Take 1 [facility] oL 500 mg 9-17 tablet by ity o f tablet 00:00: mouth (four) Medical times Branch daily. ibuprofen 2020-0 Yes [id number] 600mg Take 1 [facility] 600 mg 9-17 tablet by ity of tablet 00:00: mouth [place] 00 every 6 Medical (six) Branch hours. loperamide 2020-0 Yes [id number] 2mg Take 1 [facility] 2 mg 9-17 capsule by ity of capsule 00:00: mouth [place] 00 daily. Medical Branch methocarbam 2020-0 Yes [id number] 500mg Take 1 [facility] oL 500 mg 9-17 tablet by ity o f tablet 00:00: mouth (four) Medical times Branch daily. ibuprofen 2020-0 Yes [id number] 600mg Take 1 [facility] 600 mg 9-17 tablet by ity of tablet 00:00: mouth [place] 00 every 6 Medical (six) Branch hours. loperamide 2020-0 Yes [id number] 2mg Take 1 [facility] 2 mg 9-17 capsule by ity of capsule 00:00: mouth [place] 00 daily. Medical Branch methocarbam 2020-0 Yes [id number] 500mg Take 1 [facility] oL 500 mg 9-17 tablet by ity o f tablet 00:00: mouth (four) Medical times Branch daily. ibuprofen 2020-0 Yes [id number] 600mg Take 1 [facility] 600 mg 9-17 tablet by ity of tablet 00:00: mouth [place] 00 every 6 Medical (six) Branch hours. loperamide 2020-0 Yes [id number] 2mg Take 1 [facility] 2 mg 9-17 capsule by ity of capsule 00:00: mouth 00 daily. Medical Branch methocarbam 2020-0 Yes [id number] 500mg Take 1 [facility] oL 500 mg 9-17 tablet by ity o f tablet 00:00: mouth (four) Medical times Branch daily. ibuprofen 2020-0 Yes [id number] 600mg Take 1 [facility] 600 mg 9-17 tablet by ity of tablet 00:00: mouth 00 every 6 Medical (six) Branch hours. loperamide 2020-0 Yes [id number] 2mg Take 1 [facility] 2 mg 9-17 capsule by ity of capsule 00:00: mouth 00 daily. Medical Branch methocarbam 2020-0 Yes [id number] 500mg Take 1 [facility] oL 500 mg 9-17 tablet by ity o f tablet 00:00: mouth (four) Medical times Branch daily. ibuprofen 2020-0 Yes [id number] 600mg Take 1 [facility] 600 mg 9-17 tablet by ity of tablet 00:00: mouth 00 every 6 Medical (six) Branch hours. loperamide 2020-0 Yes [id number] 2mg Take 1 [facility] 2 mg 9-17 capsule by ity of capsule 00:00: mouth daily. Medical Branch methocarbam 2020-0 Yes [id number] 500mg Take 1 [facility] oL 500 mg 9-17 tablet by ity o f tablet 00:00: mouth (four) Medical times Branch daily. ibuprofen 2020-0 Yes [id number] 600mg Take 1 [facility] 600 mg 9-17 tablet by ity of tablet 00:00: mouth 00 every 6 Medical (six) Branch hours. loperamide 2020-0 Yes [id number] 2mg Take 1 [facility] 2 mg 9-17 capsule by ity of capsule 00:00: mouth 00 daily. Medical Branch methocarbam 2020-0 Yes [id number] 500mg Take 1 [facility] oL 500 mg 9-17 tablet by ity o f tablet 00:00: mouth 4 (four) Medical times Branch daily. ibuprofen 2020-0 Yes [id number] 600mg Take 1 [facility] 600 mg 9-17 tablet by ity of tablet 00:00: mouth [place] 00 every 6 Medical (six) Branch hours. methocarbam 2020-0 Yes [id number] 500mg Take 1 [facility] oL 500 mg 9-17 tablet by ity o f tablet 00:00: mouth 4 (four) Medical times Branch daily. ibuprofen 2020-0 Yes [id number] 600mg Take 1 [facility] 600 mg 9-17 tablet by ity of tablet 00:00: mouth [place] 00 every 6 Medical (six) Branch hours. methocarbam 2020-0 Yes [id number] 500mg Take 1 [facility] oL 500 mg 9-17 tablet by ity o f tablet 00:00: mouth (four) Medical times Branch daily. ibuprofen 2020-0 Yes [id number] 600mg Take 1 [facility] 600 mg 9-17 tablet by ity of tablet 00:00: mouth [place] 00 every 6 Medical (six) Branch hours. methocarbam 2020-0 Yes [id number] 500mg Take 1 [facility] oL 500 mg 9-17 tablet by ity o f tablet 00:00: mouth (four) Medical times Branch daily. ibuprofen 2020-0 Yes [id number] 600mg Take 1 [facility] 600 mg 9-17 tablet by ity of tablet 00:00: mouth [place] 00 every 6 Medical (six) Branch hours. methocarbam 2020-0 Yes [id number] 500mg Take 1 [facility] oL 500 mg 9-17 tablet by ity o f tablet 00:00: mouth 4 00 (four) Medical times Branch daily. acetaminoph 2020-0 2020- No [id number] 650mg Take 2 [facility] en 325 mg 9-17 09-18 tablets by ity of tablet 00:00: 04:59 mouth [place] 00 :00 every 6 Medical (six) Branch hours. acetaminoph 2020-0 2020- No [id number] 650mg Take 2 [facility] en 325 mg 9-17 09-18 tablets by ity of tablet 00:00: 04:59 mouth [place] 00 :00 every 6 Medical (six) Branch hours. acetaminoph 2020-0 2020- No [id number] 650mg Take 2 [facility] en 325 mg 9-17 09-18 tablets by ity of tablet 00:00: 04:59 mouth [place] 00 :00 every 6 Medical (six) Branch hours. acetaminoph 2020- No [id number] 650mg Take 2 [facility] en 325 mg 9-17 09-18 tablets by ity of tablet 00:00: 04:59 mouth [place] 00 :00 every 6 Medical (six) Branch hours. acetaminoph 2020- No [id number] 650mg Take 2 [facility] en 325 mg 9-17 09-18 tablets by ity of tablet 00:00: 04:59 mouth [place] 00 :00 every 6 Medical (six) Branch hours. acetaminoph 2020- No [id number] 650mg Take 2 [facility] en 325 mg 9-17 09-18 tablets by ity of tablet 00:00: 04:59 mouth [place] 00 :00 every 6 Medical (six) Branch hours. acetaminoph 2020- No [id number] 650mg Take 2 [facility] en 325 mg 9-17 09-18 tablets by ity of tablet 00:00: 04:59 mouth [place] 00 :00 every 6 Medical (six) Branch hours. acetaminoph 2020- No [id number] 650mg Take 2 [facility] en 325 mg 9-17 09-18 tablets by ity of tablet 00:00: 04:59 mouth [place] 00 :00 every 6 Medical (six) Branch hours. acetaminoph 2020- No [id number] 650mg Take 2 [facility] en 325 mg 9-17 09-18 tablets by ity of tablet 00:00: 04:59 mouth [place] 00 :00 every 6 Medical (six) Branch hours. acetaminoph 2020- No [id number] 650mg Take 2 [facility] en 325 mg 9-17 09-18 tablets by ity of tablet 00:00: 04:59 mouth [place] 00 :00 every 6 Medical (six) Branch hours. acetaminoph 20202020- No [id number] 650mg Take 2 [facility] en 325 mg 9-17 09-18 tablets by ity of tablet 00:00: 04:59 mouth [place] 00 :00 every 6 Medical (six) Branch hours. acetaminoph 2020- No [id number] 650mg Take 2 [facility] en 325 mg 9-17 09-18 tablets by ity of tablet 00:00: 04:59 mouth [place] 00 :00 every 6 Medical (six) Branch hours. acetaminoph 2020- No [id number] 650mg Take 2 [facility] en 325 mg 9-17 09-18 tablets by ity of tablet 00:00: 04:59 mouth [place] 00 :00 every 6 Medical (six) Branch hours. acetaminoph 2020- No [id number] 650mg Take 2 [facility] en 325 mg 9-17 09-18 tablets by ity of tablet 00:00: 04:59 mouth [place] 00 :00 every 6 Medical (six) Branch hours. acetaminoph 2020- No [id number] 650mg Take 2 [facility] en 325 mg 9-17 09-18 tablets by ity of tablet 00:00: 04:59 mouth [place] 00 :00 every 6 Medical (six) Branch hours. acetaminoph 2020- No [id number] 650mg Take 2 [facility] en 325 mg 9-17 09-18 tablets by ity of tablet 00:00: 04:59 mouth [place] 00 :00 every 6 Medical (six) Branch hours. acetaminoph 2020- No [id number] 650mg Take 2 [facility] en 325 mg 9-17 09-18 tablets by ity of tablet 00:00: 04:59 mouth [place] 00 :00 every 6 Medical (six) Branch hours. acetaminoph 2020- No [id number] 650mg Take 2 [facility] en 325 mg 9-17 09-18 tablets by ity of tablet 00:00: 04:59 mouth [place] 00 :00 every 6 Medical (six) Branch hours. acetaminoph 2019-2020- No [id number] 650mg Take 2 [facility] en 325 mg 9-17 09-18 tablets by ity of tablet 00:00: 04:59 mouth [place] 00 :00 every 6 Medical (six) Branch hours. acetaminoph 2020-0 2020- No [id number] 650mg Take 2 [facility] en 325 mg 9-17 09-18 tablets by ity of tablet 00:00: 04:59 mouth [place] 00 :00 every 6 Medical (six) Branch hours. acetaminoph 2020-2020- No [id number] 650mg Take 2 [facility] en 325 mg 9-17 09-18 tablets by ity of tablet 00:00: 04:59 mouth [place] 00 :00 every 6 Medical (six) Branch hours. acetaminoph 2020- No [id number] 650mg Take 2 [facility] en 325 mg 9-17 09-18 tablets by ity of tablet 00:00: 04:59 mouth [place] 00 :00 every 6 Medical (six) Branch hours. acetaminoph 2020- No [id number] 650mg Take 2 [facility] en 325 mg 9-17 09-18 tablets by ity of tablet 00:00: 04:59 mouth [place] 00 :00 every 6 Medical (six) Branch hours. acetaminoph 2020- No [id number] 650mg Take 2 [facility] en 325 mg 9-17 09-18 tablets by ity of tablet 00:00: 04:59 mouth [place] 00 :00 every 6 Medical (six) Branch hours. acetaminoph 2020- No [id number] 650mg Take 2 [facility] en 325 mg 9-17 09-18 tablets by ity of tablet 00:00: 04:59 mouth [place] 00 :00 every 6 Medical (six) Branch hours. acetaminoph 2020- No [id number] 650mg Take 2 [facility] en 325 mg 9-17 09-18 tablets by ity of tablet 00:00: 04:59 mouth [place] 00 :00 every 6 Medical (six) Branch hours. acetaminoph 2020- No [id number] 650mg Take 2 [facility] en 325 mg 9-17 09-18 tablets by ity of tablet 00:00: 04:59 mouth [place] 00 :00 every 6 Medical (six) Branch hours. acetaminoph 2020- No [id number] 650mg Take 2 [facility] en 325 mg 9-17 09-18 tablets by ity of tablet 00:00: 04:59 mouth [place] 00 :00 every 6 Medical (six) Branch hours. acetaminoph 20202020- No [id number] 650mg Take 2 [facility] en 325 mg 9-17 09-18 tablets by ity of tablet 00:00: 04:59 mouth [place] 00 :00 every 6 Medical (six) Branch hours. acetaminoph 2020- No [id number] 650mg Take 2 [facility] en 325 mg 9-17 09-18 tablets by ity of tablet 00:00: 04:59 mouth [place] 00 :00 every 6 Medical (six) Branch hours. acetaminoph 2020- No [id number] 650mg Take 2 [facility] en 325 mg 9-17 09-18 tablets by ity of tablet 00:00: 04:59 mouth [place] 00 :00 every 6 Medical (six) Branch hours. acetaminoph 2020- No [id number] 650mg Take 2 [facility] en 325 mg 9-17 09-18 tablets by ity of tablet 00:00: 04:59 mouth [place] 00 :00 every 6 Medical (six) Branch hours. acetaminoph 2020- No [id number] 650mg Take 2 [facility] en 325 mg 9-17 09-18 tablets by ity of tablet 00:00: 04:59 mouth [place] 00 :00 every 6 Medical (six) Branch hours. acetaminoph 2020- No [id number] 650mg Take 2 [facility] en 325 mg 9-17 09-18 tablets by ity of tablet 00:00: 04:59 mouth [place] 00 :00 every 6 Medical (six) Branch hours. acetaminoph 2020- No [id number] 650mg Take 2 [facility] en 325 mg 9-17 09-18 tablets by ity of tablet 00:00: 04:59 mouth [place] 00 :00 every 6 Medical (six) Branch hours. acetaminoph 2020- No [id number] 650mg Take 2 [facility] en 325 mg 9-17 09-18 tablets by ity of tablet 00:00: 04:59 mouth [place] 00 :00 every 6 Medical (six) Branch hours. acetaminoph 2020- No [id number] 650mg Take 2 [facility] en 325 mg 9-17 09-18 tablets by ity of tablet 00:00: 04:59 mouth [place] 00 :00 every 6 Medical (six) Branch hours. acetaminoph 2020- No [id number] 650mg Take 2 [facility] en 325 mg 9-17 09-18 tablets by ity of tablet 00:00: 04:59 mouth [place] 00 :00 every 6 Medical (six) Branch hours. acetaminoph 2020- No [id number] 650mg Take 2 [facility] en 325 mg 9-17 09-18 tablets by ity of tablet 00:00: 04:59 mouth [place] 00 :00 every 6 Medical (six) Branch hours. acetaminoph 2020- No [id number] 650mg Take 2 [facility] en 325 mg 9-17 09-18 tablets by ity of tablet 00:00: 04:59 mouth [place] 00 :00 every 6 Medical (six) Branch hours. acetaminoph 2019-0 2020- No [id number] 650mg Take 2 [facility] en 325 mg 9-17 09-18 tablets by ity of tablet 00:00: 04:59 mouth [place] 00 :00 every 6 Medical (six) Branch hours. acetaminoph 2019-0 2020- No [id number] 650mg Take 2 [facility] en 325 mg 9-17 09-18 tablets by ity of tablet 00:00: 04:59 mouth [place] 00 :00 every 6 Medical (six) Branch hours. acetaminoph 2020-0 2020- No [id number] 650mg Take 2 [facility] en 325 mg 9-17 09-18 tablets by ity of tablet 00:00: 04:59 mouth [place] 00 :00 every 6 Medical (six) Branch hours. acetaminoph 2019-2019- No [id number] 650mg Take 2 [facility] en 325 mg 9-17 12-16 tablets by ity of tablet 00:00: 00:00 mouth [place] 00 :00 every 6 Medical (six) Branch hours. loperamide 2019-2019- No [id number] 2mg Take 1 [facility] 2 mg 9-17 11-04 capsule by ity of capsule 00:00: 00:00 mouth [place] 00 :00 daily. Medical Branch HYDROmorpho 2019-0 2019- No [id number] 2mg Take 1 Uni [...] Medi ryann (8 %) IV 07/31/20 at [facility] h Piggyback 4 0730, g Routine D5W [...] lactated 2020-0 2020- No 1000mL at 999 [facility] ers ringers IV 07-29-14 mL/hr, ity of infusion 22:30: 22:14 1,000 mL, [place] 1,000 mL 00 :00 Intravenou Medic al s, ONCE, 1 Branch dose, [facility] 07/29/20 at 1730, Routine ibuprofen 2020-0 Yes 600mg 600 mg, [facility] ers (IBU) 07-29 Oral, Q6H ity of tablet 600 17:00: ABX, First [place] mg 00 dose on [facility] 07/29/20 at 1200, Until Discontinu ed, Routine NaCl 0.9% 2020-0 Yes 10mL 10 mL, Univer s (NS) 07-29 Slow IV ity of injection 15:59: Push, PRN, [place] 10 mL 00 Starting [facility] 07/29/20 at 1059, Until Discontinu ed, Routine, line maintenanc e lidocaine 2020-0 Yes 5mL 5 mL, Univers 1% (PF) 07-29 Subcutaneo ity of (XYLOCAINE) 15:59: us, PRN, [place] injection 5 00 Starting Medi ryann mL [facility] 07/29/20 at 1059, Until Discontinu ed, Routine, Local anesthesia pantoprazol 2020-0 Yes 40mg 40 mg, [facility] ers e 07-29 Oral, ity of (PROTONIX) 14:00: DAILY, [place] EC tablet 00 First dose Medi ryann 40 mg on [facility] 07/29/20 at 0900, Until Discontinu ed, Routine acetaminoph 2020-0 Yes 650mg 650 mg, Un thor en 07-29 Oral, Q6H ity of (TYLENOL) 14:00: ABX, First [place] tablet 650 00 dose on Medica l mg [facility] 07/29/20 at 0900, Until Discontinu ed, Routine KCL 2020-0 2020- No 20meq 20 mEq, Univers (KLOR-CON 07-29 Oral, ity of M20) tablet 13:45: 13:50 ONCE, 1 [place] 20 mEq 00 :00 dose, [facility] 07/29/20 at Branch 0845, Routine methocarbam 2020-0 [...] (after Medical last Branch modificati on) on [place] 07/28/20 at 2000, Until Discontinu ed, Routine methocarbam 2020-0 2020- No 1g 1,000 mg U nivers oL 07-28 (1 g), IV ity of (ROBAXIN) 22:00: 21:57 Piggyback, [place] 1,000 mg in 00 :00 ONCE, 1 Medic al NaCl 0.9% dose, [place] Bran h (NS) 07/28/20 at piggyback 1700, 100 mL acetaminoph 2020-0 2020- No 1000mg 1,000 mg, Univers en ADULT 07-28 IV ity of (OFIRMEV) 15:00: 08:16 Infusion, [place] injection 00 :00 Administer Medi ryann 1,000 mg over 15 Branch Minutes, Q8H ABX, 3 doses, First dose (after last reorder) on [place] 07/28/20 at 1000, Last dose on [facility] 07/29/20 at 0200, Routine
Indicatio n: Non-periop erative Patient
Approved by: Per Policy (NPO Status) ALPRAZolam 2020-0 2020- No .5mg 0.5 mg, Uni vers (XANAX) 07-28 Oral, PRN, ity o f tablet 0.5 13:53: 16:59 1 dose, Juan as mg 25 :00 Starting [facility] Branch 07/28/20 at 0853, Until Discontinu ed, Routine, anxiety ALPRAZolam 2019-0 Yes 1mg 1 mg, Univer s (XANAX) 07-28 Oral, ity of tablet 1 mg 13:52: QHSPRN, [place] as 54 Starting [facility] 07/28/20 at 0852, Until Discontinu ed, Routine, Insomnia, anxiety D5W 0.45% 2020- No IV Univers NaCl 07-28 Infusion, [...] on 07/27/20 at 0945, Last dose on [place] 07/28/20 at 0145, Routine
Indicatio n: Non-periop [...] ity of (fixed 00:45: 12:37 [place] dose) FINISHER HOT STRIP 00 :04 Medical injection Branch HYDROmorpho 2019-0 [...] SERVICE acetaminoph 2020- No 1000mg 1,000 mg, [facility] en ADULT 07-26 IV ity of ([facility]) 00:21: 00:44 [place]fusion[place] [...] Routine acetaminoph 2020- No 1000mg 1,000 mg, [facility] en ADULT 07-25 IV ity of ([facility]) 12:45: 12:44 [place] [...] acetaminoph 0 2020- No 1000mg 1,000 mg, [facility] en ADULT 07-24 IV ity of (OFIRMEV) 07:30: 22:16 [place]fusion, [place] injection 00 :00 Administer Medi ryann 1,000 mg over 15 Branch Minutes, Q8H ABX, 3 doses, First dose on Wed07/24/20 at 0230, Last dose on Wed07/24/20 at 1830, Routine
Indicatio n: Non-periop erative Patient
Approved by: Per Policy (NPO Status) piperacilli 2020-0 2020- No 3.375g 3.375 g, [...] Branch , Starting Wed07/24/20 at 0130, Until [place] 07/28/20 at 0739, Routine morpHINE 2019-0 2020- No 4mg 4 mg, Slow Un thor injection 4 07-24 IV Push, ity of mg 06:19: 14:48 Q3HPRN, [place] 51 :46 Starting Medical [facility] 07/24/20 Branch at 0119, Until [place] 07/28/20 at 0948, Routine, Pain (scale 7-10) morpHINE 2020-0 2020- No 4mg 4 mg, Slow Un thor injection 4 07-24 IV Push, ity of mg 03:45: 02:42 ONCE, 1 [place] 00 :00 dose, Tue Medical 07/23/20 at Branch 2245, STAT NaCl 0.9% 2020-0 2020- No 500mL at 999 Univ ers (NS) bolus 07-24 mL/hr, 500 it y of infusion 03:45: 03:41 mL, IV [place] 500 mL 00 :00 Infusion, Medical ONCE, 1 [place] dose, 07/23/20 at 2245, STAT NaCl 0.9% 2019-2019- No 1000mL at 150 Uni vers (NS) IV 07-24 mL/hr, ity of infusion 03:45: 09:49 Intravenou [place] 1,000 mL 00 :01 s, Medical CONTINUOUS [place] , Starting 07/23/20 at 2245, Until 07/24/20 at 0449, Routine proMETHazin 2019- 2020- No 12.5mg 12.5 mg, Univers e 07-24 IV ity of (PHENERGAN) 01:30: 01:30 Piggyback, [place] 12.5 mg in 00 :00 ONCE, 1 Medica l NaCl 0.9% dose, Tue Bran h (NS) 50 mL 07/23/20 at piggyback 2030, 50 mL morpHINE 2019- No 4mg 4 mg, Slow Un thor injection 4 07-24 IV Push, ity of mg 01:15: 00:22 ONCE, 1 [place] 00 :00 dose, [facility] 07/23/20 at Branch 2015, STAT morpHINE 2019-0 2019- No 4mg 4 mg, Slow Un thor injection 4 07-23 IV Push, ity of mg 22:30: 21:20 ONCE, 1 [place] 00 :00 dose, [facility] 07/23/20 at Branch 1730, STAT piperacilli [...] of 350 20:46: 20:47 s, ONCE, 1 [place] BULK-150 00 :00 dose, Tue Medica l mL) 07/23/20 at Branch injection 1600, 114 mL Routine methylPREDN 2019-0 2020- No 40mg 40 mg, IV Univers ISolone sod 07-23 Piggyback, i ty of succ 19:15: 19:10 ONCE, 1 [place] (SOLU-MEDRO 00 :00 dose, Tue Med ical [...] famotidine 2019-0 2020- No 20mg 20 mg, [facility] ers (PEPCID 07-23 Intravenou ity o f (PF)) 18:45: 19:02 s, ONCE, 1 [place] injection 00 :00 dose, Tue Medic al 20 mg 07/23/20 at Branch 1345, LUISA proMETHazin 2019-0 2020- No 12.5mg 12.5 mg, Univers e 07-23 IV ity of (PHENERGAN) 18:45: 19:01 Piggyback, [place] 12.5 mg in 00 :00 ONCE, 1 Medica l NaCl 0.9% dose, [facility] Branc h (NS) 50 mL [...] daily. Branch ease suspension metoprolol 2018-11 Yes [id number] 25mg Take 1 Un thor tartrate 25 0-10 tablet by ity of mg tablet 00:00: mouth 2 [place] 00 (two) Medical times Branch daily. metoprolol 2018-11 Yes [id number] 25mg Take 1 Un thor tartrate 25 0-10 tablet by ity of mg tablet 00:00: mouth 2 [place] 00 (two) Medical times Branch daily. metoprolol 2018-11 Yes [id number] 25mg Take 1 Un thor tartrate 25 0-10 tablet by ity of mg tablet 00:00: mouth 2 [place] 00 (two) Medical times Branch daily. acetaminoph 2018-11 Yes [id number] 1{tbl} Take 1 Univers en-codeine 0-10 tablet by ity of (TYLENOL-CO 00:00: mouth [place] DEINE #4) 00 every 4 Medical 300-60 mg (four) Branch tablet hours as needed for Pain. levoFLOXaci 2018-11 Yes [id number] 750mg Take 1 Univers n 750 mg 0-10 tablet by ity of tablet 00:00: mouth [place] 00 every 24 Medical (twenty-fo Branch ur) hours. metoprolol 2018-11 Yes [id number] 25mg Take 1 Un thor tartrate 25 0-10 tablet by ity of mg tablet 00:00: mouth 2 [place] 00 (two) Medical times Branch daily. metoprolol 2018-11 Yes [id number] 25mg Take 1 Un thor tartrate 25 0-10 tablet by ity of mg tablet 00:00: mouth 2 [place] 00 (two) Medical times Branch daily. metoprolol 2018-11 Yes [id number] 25mg Take 1 Un thor tartrate 25 0-10 tablet by ity of mg tablet 00:00: mouth (two) Medical times Branch daily. metoprolol 2018-11 Yes [id number] 25mg Take 1 Un thor tartrate 25 0-10 tablet by ity of mg tablet 00:00: mouth (two) Medical times Branch daily. metoprolol 2018-11 Yes [id number] 25mg Take 1 Un thor tartrate 25 0-10 tablet by ity of mg tablet 00:00: mouth (two) Medical times Branch daily. metoprolol 2018-11 Yes [id number] 25mg Take 1 Un thor tartrate 25 0-10 tablet by ity of mg tablet 00:00: mouth () Medical times Branch daily. metoprolol 2018-11 Yes [id number] 25mg Take 1 Un thor tartrate 25 0-10 tablet by ity of mg tablet 00:00: mouth (two) Medical times Branch daily. metoprolol 2018-11 Yes [id number] 25mg Take 1 Un thor tartrate 25 0-10 tablet by ity of mg tablet 00:00: mouth (two) Medical times Branch daily. metoprolol 2018-11 Yes [id number] 25mg Take 1 Un thor tartrate 25 0-10 tablet by ity of mg tablet 00:00: mouth (two) Medical times Branch daily. metoprolol 2018-11 Yes [id number] 25mg Take 1 Un thor tartrate 25 0-10 tablet by ity of mg tablet 00:00: mouth (two) Medical times Branch daily. metoprolol 2018-11 Yes [id number] 25mg Take 1 Un thor tartrate 25 0-10 tablet by ity of mg tablet 00:00: mouth (two) Medical times Branch daily. metoprolol 2018-11 Yes [id number] 25mg Take 1 Un thor tartrate 25 0-10 tablet by ity of mg tablet 00:00: mouth (two) Medical times Branch daily. metoprolol 2018-11 Yes [id number] 25mg Take 1 Un tohr tartrate 25 0-10 tablet by ity of mg tablet 00:00: mouth (two) Medical times Branch daily. metoprolol 2018-11 Yes [id number] 25mg Take 1 Un thor tartrate 25 0-10 tablet by ity of mg tablet 00:00: mouth (two) Medical times Branch daily. metoprolol 2018-11 Yes [id number] 25mg Take 1 Un thor tartrate 25 0-10 tablet by ity of mg tablet 00:00: mouth (two) Medical times Branch daily. metoprolol 2018-11 Yes [id number] 25mg Take 1 Un thor tartrate 25 0-10 tablet by ity of mg tablet 00:00: mouth (two) Medical times Branch daily. metoprolol 2018-11 Yes [id number] 25mg Take 1 Un thor tartrate 25 0-10 tablet by ity of mg tablet 00:00: mouth (two) Medical times Branch daily. metoprolol 2018-11 Yes [id number] 25mg Take 1 Un thor tartrate 25 0-10 tablet by ity of mg tablet 00:00: mouth (two) Medical times Branch daily. metoprolol 2018-11 Yes [id number] 25mg Take 1 Un thor tartrate 25 0-10 tablet by ity of mg tablet 00:00: mouth (two) Medical times Branch daily. metoprolol 2018-11 Yes [id number] 25mg Take 1 Un thor tartrate 25 0-10 tablet by ity of mg tablet 00:00: mouth (two) Medical times Branch daily. metoprolol 2018-11 Yes [id number] 25mg Take 1 Un thor tartrate 25 0-10 tablet by ity of mg tablet 00:00: mouth (two) Medical times Branch daily. metoprolol 2018-11 Yes [id number] 25mg Take 1 Un thor tartrate 25 0-10 tablet by ity of mg tablet 00:00: mouth (two) Medical times Branch daily. metoprolol 2018-11 Yes [id number] 25mg Take 1 Un thor tartrate 25 0-10 tablet by ity of mg tablet 00:00: mouth (two) Medical times Branch daily. metoprolol 2018-11 Yes [id number] 25mg Take 1 Un thor tartrate 25 0-10 tablet by ity of mg tablet 00:00: mouth (two) Medical times Branch daily. metoprolol 2018-11 Yes [id number] 25mg Take 1 Un thor tartrate 25 0-10 tablet by ity of mg tablet 00:00: mouth () Medical times Branch daily. metoprolol 2018-11 Yes [id number] 25mg Take 1 Un thor tartrate 25 0-10 tablet by ity of mg tablet 00:00: mouth (two) Medical times Branch daily. metoprolol 2018-11 Yes [id number] 25mg Take 1 Un thor tartrate 25 0-10 tablet by ity of mg tablet 00:00: mouth (two) Medical times Branch daily. metoprolol 2018-11 Yes [id number] 25mg Take 1 Un thor tartrate 25 0-10 tablet by ity of mg tablet 00:00: mouth (two) Medical times Branch daily. metoprolol 2018-11 Yes [id number] 25mg Take 1 Un thor tartrate 25 0-10 tablet by ity of mg tablet 00:00: mouth () Medical times Branch daily. metoprolol 2018-11 Yes [id number] 25mg Take 1 Un thor tartrate 25 0-10 tablet by ity of mg tablet 00:00: mouth () Medical times Branch daily. metoprolol 2018-11 Yes [id number] 25mg Take 1 Un thor tartrate 25 0-10 tablet by ity of mg tablet 00:00: mouth (two) Medical times Branch daily. metoprolol 2018-11 Yes [id number] 25mg Take 1 Un thor tartrate 25 0-10 tablet by ity of mg tablet 00:00: mouth (two) Medical times Branch daily. metoprolol 2018-11 Yes [id number] 25mg Take 1 Un thor tartrate 25 0-10 tablet by ity of mg tablet 00:00: mouth (two) Medical times Branch daily. metoprolol 2018-11 Yes [id number] 25mg Take 1 Un thor tartrate 25 0-10 tablet by ity of mg tablet 00:00: mouth (two) Medical times Branch daily. metoprolol 2018-11 Yes [id number] 25mg Take 1 Un thor tartrate 25 0-10 tablet by ity of mg tablet 00:00: mouth (two) Medical times Branch daily. metoprolol 2018-11 Yes [id number] 25mg Take 1 Un thor tartrate 25 0-10 tablet by ity of mg tablet 00:00: mouth (two) Medical times Branch daily. metoprolol 2018-11 Yes [id number] 25mg Take 1 Un thor tartrate 25 0-10 tablet by ity of mg tablet 00:00: mouth (two) Medical times Branch daily. metoprolol 2018-11 Yes [id number] 25mg Take 1 Un thor tartrate 25 0-10 tablet by ity of mg tablet 00:00: mouth 2 (two) Medical times Branch daily. metoprolol 2018-11 Yes [id number] 25mg Take 1 Un thor tartrate 25 0-10 tablet by ity of mg tablet 00:00: mouth [place] (two) Medical times Branch daily. metoprolol 2018-11 Yes [id number] 25mg Take 1 Un thor tartrate 25 0-10 tablet by ity of mg tablet 00:00: mouth (two) Medical times Branch daily. metoprolol 2018-11 Yes [id number] 25mg Take 1 Un thor tartrate 25 0-10 tablet by ity of mg tablet 00:00: mouth (two) Medical times Branch daily. metoprolol 2018-11 2020- No [id number] 25mg Take 1 U nivers tartrate 25 0-10 12-16 tablet by it y of mg tablet 00:00: 00:00 mouth 2 [place] 00 :[place] (two) Medical times Branch daily. acetaminoph 2018-11 2020- No [id number] 1{tbl} Take 1 Univers en-codeine 0-10 -17 tablet by ity of (TYLENOL-CO 00:00: 00:00 [place] DEINE #4) 00 :00 every 4 Medical 300-60 mg (four) Branch tablet hours as needed for Pain. levoFLOXaci 2018-11 2020- No [id number] 750mg Take 1 Univers n 750 mg 0-10 -17 tablet by ity o f tablet 00:00: 00:00 mouth [place] 00 :00 every 24 Medical (twenty-fo Branch ur) hours. proMETHazin 2018-11 Yes [id number] 25mg Take 1 Univers e 25 mg 0-04 tablet by ity of tablet 00:00: mouth [place] 00 every 6 Medical (six) Branch hours as needed for Nausea and Vomiting (N/V). proMETHazin 2018-11 Yes [id number] 25mg Take 1 Univers e 25 mg 0-04 tablet by ity of tablet 00:00: mouth [place] 00 every 6 Medical (six) Branch hours as needed for Nausea and Vomiting (N/V). proMETHazin 2018-11 Yes [id number] 25mg Take 1 Univers e 25 mg 0-04 tablet by ity of tablet 00:00: mouth [place] 00 every 6 Medical (six) Branch hours as needed for Nausea and Vomiting (N/V). proMETHazin 2018-11 Yes [id number] 25mg Take 1 Univers e 25 mg 0-04 tablet by ity of tablet 00:00: mouth [place] 00 every 6 Medical (six) Branch hours as needed for Nausea and Vomiting (N/V). proMETHazin 2018-11 Yes [id number] 25mg Take 1 Univers e 25 mg 0-04 tablet by ity of tablet 00:00: mouth [place] 00 every 6 Medical (six) Branch hours as needed for Nausea and Vomiting (N/V). proMETHazin 2018-11 Yes [id number] 25mg Take 1 Univers e 25 mg 0-04 tablet by ity of tablet 00:00: mouth [place] 00 every 6 Medical (six) Branch hours as needed for Nausea and Vomiting (N/V). proMETHazin 2018-11 Yes [id number] 25mg Take 1 Univers e 25 mg 0-04 tablet by ity of tablet 00:00: mouth [place] 00 every 6 Medical (six) Branch hours as needed for Nausea and Vomiting (N/V). proMETHazin 2018-11 Yes [id number] 25mg Take 1 Univers e 25 mg 0-04 tablet by ity of tablet 00:00: mouth [place] 00 every 6 Medical (six) Branch hours as needed for Nausea and Vomiting (N/V). proMETHazin 2018-11 Yes [id number] 25mg Take 1 Univers e 25 mg 0-04 tablet by ity of tablet 00:00: mouth [place] 00 every 6 Medical (six) Branch hours as needed for Nausea and Vomiting (N/V). proMETHazin 2018-11 Yes [id number] 25mg Take 1 Univers e 25 mg 0-04 tablet by ity of tablet 00:00: mouth [place] 00 every 6 Medical (six) Branch hours as needed for Nausea and Vomiting (N/V). proMETHazin 2018-11 Yes [id number] 25mg Take 1 Univers e 25 mg 0-04 tablet by ity of tablet 00:00: mouth [place] 00 every 6 Medical (six) Branch hours as needed for Nausea and Vomiting (N/V). proMETHazin 2018-11 Yes [id number] 25mg Take 1 Univers e 25 mg 0-04 tablet by ity of tablet 00:00: mouth [place] 00 every 6 Medical (six) Branch hours as needed for Nausea and Vomiting (N/V). proMETHazin 2018-11 Yes [id number] 25mg Take 1 Univers e 25 mg 0-04 tablet by ity of tablet 00:00: mouth [place] 00 every 6 Medical (six) Branch hours as needed for Nausea and Vomiting (N/V). proMETHazin 2018-11 Yes [id number] 25mg Take 1 Univers e 25 mg 0-04 tablet by ity of tablet 00:00: mouth [place] 00 every 6 Medical (six) Branch hours as needed for Nausea and Vomiting (N/V). proMETHazin 2018-11 Yes [id number] 25mg Take 1 Univers e 25 mg 0-04 tablet by ity of tablet 00:00: mouth [place] 00 every 6 Medical (six) Branch hours as needed for Nausea and Vomiting (N/V). proMETHazin 2018-11 Yes [id number] 25mg Take 1 Univers e 25 mg 0-04 tablet by ity of tablet 00:00: mouth [place] 00 every 6 Medical (six) Branch hours as needed for Nausea and Vomiting (N/V). proMETHazin 2018-11 Yes [id number] 25mg Take 1 Univers e 25 mg 0-04 tablet by ity of tablet 00:00: mouth [place] 00 every 6 Medical (six) Branch hours as needed for Nausea and Vomiting (N/V). proMETHazin 2018-11 Yes [id number] 25mg Take 1 Univers e 25 mg 0-04 tablet by ity of tablet 00:00: mouth [place] 00 every 6 Medical (six) Branch hours as needed for Nausea and Vomiting (N/V). proMETHazin 2018-11 Yes [id number] 25mg Take 1 Univers e 25 mg 0-04 tablet by ity of tablet 00:00: mouth [place] 00 every 6 Medical (six) Branch hours as needed for Nausea and Vomiting (N/V). proMETHazin 2018-11 Yes [id number] 25mg Take 1 Univers e 25 mg 0-04 tablet by ity of tablet 00:00: mouth [place] 00 every 6 Medical (six) Branch hours as needed for Nausea and Vomiting (N/V). proMETHazin 2018-11 Yes [id number] 25mg Take 1 Univers e 25 mg 0-04 tablet by ity of tablet 00:00: mouth [place] 00 every 6 Medical (six) Branch hours as needed for Nausea and Vomiting (N/V). proMETHazin 2018-11 Yes [id number] 25mg Take 1 Univers e 25 mg 0-04 tablet by ity of tablet 00:00: mouth [place] 00 every 6 Medical (six) Branch hours as needed for Nausea and Vomiting (N/V). proMETHazin 2018-11 Yes [id number] 25mg Take 1 Univers e 25 mg 0-04 tablet by ity of tablet 00:00: mouth [place] 00 every 6 Medical (six) Branch hours as needed for Nausea and Vomiting (N/V). proMETHazin 2018-11 Yes [id number] 25mg Take 1 Univers e 25 mg 0-04 tablet by ity of tablet 00:00: mouth [place] 00 every 6 Medical (six) Branch hours as needed for Nausea and Vomiting (N/V). proMETHazin 2018-11 Yes [id number] 25mg Take 1 Univers e 25 mg 0-04 tablet by ity of tablet 00:00: mouth [place] 00 every 6 Medical (six) Branch hours as needed for Nausea and Vomiting (N/V). proMETHazin 2018-11 Yes [id number] 25mg Take 1 Univers e 25 mg 0-04 tablet by ity of tablet 00:00: mouth [place] 00 every 6 Medical (six) Branch hours as needed for Nausea and Vomiting (N/V). proMETHazin 2018-11 2020- No [id number] 25mg Take 1 Univers e 25 mg [...] Beth Medica l NaCl 0.9% 06/15/19 at [facility] h (NS) 50 mL 1515, 50 piggyback mL morpHINE 2018- No 4mg 4 mg, Slow Un thor injection 4 06-15 IV Push, ity of mg 20:15: 19:30 ONCE, 1 [place] 00 :00 dose, [facility] Medical 06/15/19 at Branch 1515, STAT [...] :00 ONCE, 1 Medical 25 mg dose, [facility] Branch 06/15/19 at 1345, STAT famotidine 2018- No 20mg 20 mg, Univ ers (PEPCID 06-15 Slow IV ity of (PF)) 18:45: 17:47 Push, [place] injection 00 :00 ONCE, 1 Medical 20 mg dose, [facility] Branch 06/15/19 at 1345, LUISA morpHINE 2018- No 4mg 4 mg, Slow Un thor injection 4 06-15 IV Push, ity of mg 18:45: 17:54 ONCE, 1 [place] 00 :00 dose, [facility] Medical 06/15/19 at Branch 1345, STAT [...] Beth 06/15/19 at 1200, LUISA proMETHazin Yes [id number] 25mg Take 1 U nivers e 25 mg 06-15 tablet by ity of tablet 00:00: mouth [place] 00 every 6 Medical (six) Branch hours as needed for Nausea and Vomiting (N/V). famotidine 2019- No [id number] 40mg Take 1 U nivers 40 mg 06-15 tablet by ity of tablet 00:00: 04:59 mouth [place] 00 :00 daily for Medical 14 days. Branch predniSONE Yes [id number] Take 1 U nivers 10 mg 4-26 tablet ity of tablet 00:00: daily. [place] 00 Medical Branch proMETHazin Yes [id number] 25mg Insert 1 Univers e 25 mg [...] 20 mg 31 delayed release tablet pantoprazol 0 Yes 20mg QD Take 20 mg [place] [...] -acetaminop 0-22 abscess tablet by Health hen ([employer]) 00:00: mouth 10-325 mg 00 every 6 tablet hours as needed for Pain. HYDROcodone 2012-11 Yes Periapical 1{tbl} Take 1 [place] -acetaminop 0-22 abscess tablet by Health hen ([employer]) 00:00: mouth 10-325 mg 00 every 6 tablet hours as needed for Pain. HYDROcodone 2012-11 Yes Car[place] 1{tbl} Take 1 [place] -acetaminop 0-21 tablet by Hea lt hen ([employer]) 00:00: mouth 5-325 mg 00 every 6 tablet hours as needed for Pain. HYDROcodone 2012-11 Yes [place] 1{tbl} Take 1 [place] -acetaminop 0-21 tablet by Hea lt hen ([employer]) 00:00: mouth 5-325 mg 00 every 6 tablet hours as needed for Pain. HYDROcodone 2012-11 Yes [place] 1{tbl} Take 1 [place] -acetaminop 0-21 tablet by a lt hen ([employer]) 00:00: mouth 5-325 mg 00 every 6 tablet hours as needed for Pain. proMETHazin 2010-11 Yes [id number] 12.5mg Take 1 Tab Univers e 2-23 by mouth ity of (PHENERGAN) 00:00: every 6 [place] 12.5 mg 00 (six) Medical tablet hours as Branch needed for Nausea and Vomiting. Vital Signs Vital Name Observation Time Observation Value Comments Source Systolic blood 2020-10-30 92 mm[Hg] [place] of pressure 22:01:00 [facility] Diastolic blood 2020-10-30 65 mm[Hg] University o f pressure 22:01:00 [facility] Heart rate 2020-10-30 104 /min [facility] :01:00 [facility] Body temperature 2020-10-30 36.83 Tay[place] [facility] 22:01:00 [facility] Respiratory rate 2020-10-30 18 /min [facility] :01:00 [facility] Oxygen saturation 2020-10-30 96 /min [facility] in Arterial blood 22:01:00 [facility] by Pulse oximetry Branch Body weight 2020-10-24 61.2 kg [facility] 19:35:00 [facility] BMI 2020-10-24 21.13 kg/m2 [facility] 19:35:00 [facility] Systolic blood 2020-10-30 92 mm[Hg] University of pressure 22:01:00 [facility] Branch Diastolic blood 2020-10-30 65 mm[Hg] University o f pressure 22:01:00 [facility] Branch Heart rate 2020-10-30 104 /min University of 22:01:00 [facility] Body temperature 2020-10-30 36.83 [place]la University of 22:01:00 [facility] Branch Respiratory rate 2020-10-30 18 /min University of 22:01:00 [facility] Oxygen saturation 2020-10-30 96 /min University of in Arterial blood 22:01:00 [facility] by Pulse oximetry Branch Body weight 2020-10-24 61.2 kg University of 19:35:00 [facility] BMI 2020-10-24 21.13 kg/m2 University of 19:35:00 [facility] Systolic blood 2020-10-19 92 mm[Hg] University of pressure 19:08:00 [facility] Diastolic blood 2020-10-19 63 mm[Hg] University o f pressure 19:08:00 [facility] Heart rate 2020-10-19 98 /min University of 19:08:00 [facility] Body temperature 2020-10-19 36.17 Tayla University of 19:08:00 [facility] Respiratory rate 2020-10-19 18 /min University of 19:08:00 [facility] Oxygen saturation 2020-10-19 100 /min University of in Arterial blood 19:08:00 [facility] by Pulse oximetry Branch Body height 2020-10-14 170.2 cm University of 12:21:00 [facility] Body weight 2020-10-14 55.1 kg University of 12:21:00 [facility] BMI 2020-10-14 19.03 kg/m2 University of 12:21:00 [facility] Systolic blood 2020-10-19 92 mm[Hg] University of pressure 19:08:00 [facility] Branch Diastolic blood 2020-10-19 63 mm[Hg] University o f pressure 19:08:00 [facility] Heart rate 2020-10-19 98 /min University of 19:08:00 [facility] Body temperature 2020-10-19 36.17 Tayla University of 19:08:00 [facility] Respiratory rate 2020-10-19 18 /min University of 19:08:00 [facility] Oxygen saturation 2020-10-19 100 /min University of in Arterial blood 19:08:00 [facility] by Pulse oximetry Branch Body height 2020-10-14 170.2 cm University of 12:21:00 [facility] Body weight 2020-10-14 55.1 kg University of 12:21:00 [facility] BMI 2020-10-14 19.03 kg/m2 University of 12:21:00 [facility] Respiratory rate 2020-10-02 20 /min University of 06:35:00 [facility] Oxygen saturation 2020-10-02 97 /min University of in Arterial blood 06:35:00 [facility] by Pulse oximetry Branch Systolic blood 2020-10-02 122 mm[Hg] University of pressure 04:53:00 [facility] Diastolic blood 2020-10-02 88 mm[Hg] University o f pressure 04:53:00 [facility] Heart rate 2020-10-02 133 /min University of 04:53:00 [facility] Body temperature 2020-10-02 37.28 Tayla University of 04:53:00 [facility] Body height 2020-10-02 170 cm University of 04:53:00 [facility] Body weight 2020-10-02 58.968 kg University of 04:53:00 [facility] BMI 2020-10-02 20.40 kg/m2 University of 04:53:00 [facility] Systolic blood 2020-09-27 98 mm[Hg] University of pressure 15:38:00 [facility] Diastolic blood 2020-09-27 64 mm[Hg] University o f pressure 15:38:00 [facility] Heart rate 2020-09-27 86 /min University of 15:38:00 [facility] Body temperature 2020-09-27 37.06 Tayla University of 15:38:00 [facility] Body height 2020-09-27 170.2 cm University of 15:38:00 [facility] Body weight 2020-09-27 59.104 kg University of 15:38:00 [facility] BMI 2020-09-27 20.41 kg/m2 University of 15:38:00 [facility] Oxygen saturation 2020-09-27 100 /min University of in Arterial blood 15:38:00 [facility] by Pulse oximetry Branch Systolic blood 2020-09-18 106 mm[Hg] University of pressure 21:45:00 [facility] Diastolic blood 2020-09-18 68 mm[Hg] University o f pressure 21:45:00 [facility] Heart rate 2020-09-18 101 /min University of 21:45:00 [facility] Branch Body temperature 2020-09-18 36.22 Tayla University of 21:45:00 [facility] Respiratory rate 2020-09-18 18 /min University of 21:45:00 [facility] Oxygen saturation 2020-09-18 98 /min University of in Arterial blood 21:45:00 [facility] ryann by Pulse oximetry Branch Body weight 2020-09-18 61.236 kg With one University of 10:59:00 blanket and [place] [facility]. Branch BMI 2020-09-18 21.14 kg/m2 University of 10:59:00 [facility] Body height 2020-09-13 170.2 cm University of 20:47:00 [facility] Systolic blood 2020-09-01 129 mm[Hg] University of pressure 11:00:00 [facility] Diastolic blood 2020-09-01 86 mm[Hg] University o f pressure 11:00:00 [facility] Heart rate 2020-09-01 102 /min University of 11:00:00 [facility] Body temperature 2020-09-01 37.67 Tayla University of 10:00:00 [facility] Respiratory rate 2020-09-01 18 /min University of 10:00:00 [facility] Oxygen saturation 2020-09-01 100 /min University of in Arterial blood 10:00:00 [facility] by Pulse oximetry Branch Body weight 2020-09-01 58.968 kg University of 06:45:00 [facility] BMI 2020-09-01 20.36 kg/m2 University of 06:45:00 [facility] Systolic blood 2020-08-24 124 mm[Hg] University of pressure 00:00:00 [facility] Diastolic blood 2020-08-24 90 mm[Hg] University o f pressure 00:00:00 [facility] Heart rate 2020-08-24 89 /min University of 00:00:00 [facility] Respiratory rate 2020-08-24 20 /min University of 00:00:00 [facility] Oxygen saturation 2020-08-24 100 /min University of in Arterial blood 00:00:00 [facility] ryann by Pulse oximetry Branch Body temperature 2020-08-23 36.61 Tayla University of 22:27:00 [facility] Body weight 2020-08-23 58.968 kg University of 22:27:00 [facility] BMI 2020-08-23 20.36 kg/m2 University of 22:27:00 [facility] Systolic blood 2020-08-20 117 mm[Hg] University of pressure 16:22:00 [facility] Diastolic blood 2020-08-20 86 mm[Hg] University o f pressure 16:22:00 [facility] Heart rate 2020-08-20 129 /min University of 16:22:00 [facility] Body temperature 2020-08-20 36.89 Tayla University of 16:21:00 [facility] Respiratory rate 2020-08-20 16 /min University of 16:21:00 [facility] Body height 2020-08-20 170.2 cm University of 16:21:00 [facility] Body weight 2020-08-20 57.607 kg University of 16::00 [facility] BMI 2020-08-20 19.89 kg/m2 University of 16:21:00 [facility] Systolic blood 2020-08-18 115 mm[Hg] University of pressure 04:00:00 [facility] Diastolic blood 2020-08-18 79 mm[Hg] University o f pressure 04:00:00 [facility] Heart rate 2020-08-18 104 /min University of 04:00:00 [facility] Respiratory rate 2020-08-18 17 /min University of 04:00:00 [facility] Oxygen saturation 2020-08-18 100 /min [facility] in Arterial blood 04:00:00 [facility] by Pulse oximetry [place] Body temperature 2020-08-18 37.06 Tayla University of 00:44:00 [facility] Body weight 2020-08-18 56.7 kg University of 00:44:00 [facility] BMI 2020-08-18 19.58 kg/m2 University of 00:44:00 [facility] Systolic blood 2020-08-09 153 mm[Hg] University of pressure 15:40:00 [facility] Diastolic blood 2020-08-09 83 mm[Hg] University o f pressure 15:40:00 [facility] Heart rate 2020-08-09 143 /min University of 15:40:00 [facility] Body temperature 2020-08-09 36.83 Tayla University of 15:40:00 [facility] Body height 2020-08-09 170.2 cm University of 15:40:00 [facility] Body weight 2020-08-09 56.473 kg University of 15:40:00 [facility] BMI 2020-08-09 19.50 kg/m2 University of 15:40:00 [facility] Oxygen saturation 2020-08-09 100 /min University of in Arterial blood 15:40:00 [facility] ryann by Pulse oximetry Branch Systolic blood 2020-08-01 126 mm[Hg] University of pressure 13:03:00 [facility] Diastolic blood 2020-08-01 76 mm[Hg] University o f pressure 13:03:00 [facility] Heart rate 2020-08-01 119 /min University of 13:03:00 [facility] Body temperature 2020-08-01 36.67 Tayla Cuero of 13:03:00 [facility] Respiratory rate 2020-08-01 16 /min University of 13:03:00 [facility] Oxygen saturation 2020-08-01 99 /min University of in Arterial blood 13:03:00 [facility] by Pulse oximetry Branch Body weight 2020-07-23 70.308 kg University of 16:57:00 [facility] BMI 2020-07-23 24.28 kg/m2 University of 16:57:00 [facility] Systolic blood 2019-06-15 110 mm[Hg] University of pressure 18:22:00 [facility] Diastolic blood 2019-06-15 57 mm[Hg] University o f pressure 18:22:00 [facility] Heart rate 2019-06-15 91 /min University of 18:22:00 [facility] Respiratory rate 2019-06-15 18 /min University of 18:22:00 [facility] Oxygen saturation 2019-06-15 98 /min University of in Arterial blood 18:22:00 [facility] by Pulse oximetry Branch Body temperature 2019-06-15 38 Tayla University of 16:54:00 [facility] Body weight 2019-06-15 83.915 kg University of 16:54:00 [facility] BMI 2019-06-15 28.98 kg/m2 University of 16:54:00 [facility] Procedures Procedure Date / Time Performing Clinician Source Performed AUTHORIZATION FOR RELEASE 2021-06-18 05:01:00 Doctor Unassigned, [facility] EXTERNAL PROVIDER RECORDS 2020-11-20 06:01:00 Doctor Unassigned, [facility] CBC WITH DIFF 2020-10-29 13:10:00 Leticia Hinson o f [facility] MAGNESIUM 2020-10-29 09:36:00 [facility] BASIC METABOLIC PANEL 2020-10-29 09:36:00 [facility] (NA, K, CL, CO2, GLUCOSE, [facility] BUN, CREATININE, CA) PHOSPHORUS 2020-10-28 10:00:00 [facility] 2020-10-28 10:00:00 [facility] BASIC METABOLIC PANEL 2020-10-28 10:00:00 Mark [facility] (NA, K, CL, CO2, GLUCOSE, [facility] BUN, CREATININE, CA) CBC WITH DIFF 2020-10-28 09:59:00 [facility] 2020-10-27 07:05:00 [facility]IC METABOLIC PANEL 2020-10-27 07:05[facility]00 [facility] ([facility], K, CL, CO2, GLUCOSE, Medica l Branch BUN, CREATININE, CA) CBC WITH DIFF 2020-10-27 07:05:00 [facility] URINALYSIS 2020-10-27 07:05:00 Suraj [facility] URINE CULTURE 2020-10-27 07:05:00 Suraj [facility] CBC WITH DIFF 2020-10-26 11:43:00 [facility]OS[facility]US 2020-10-26 03:41:00 [facility] MAG[facility]UM 2020-10-26 03:41:00 [facility] BASIC METABOLIC PANEL 2020-10-26 03:41:00 [facility] (NA, K, CL, CO2, GLUCOSE, Medica l Branch BUN, CREATININE, CA) CBC WITH DIFF 2020-10-26 03:41:00 [facility] COVID-19 (ID NOW RAPID 2020-10-25 01:26:00 Ehsan [facility] TESTING) Medical Branch LAB ONLY COVID 2020-10-25 01:26:00 [facility] INTERPRETATION [facility] BASIC METABOLIC PANEL 2020-10-24 22:27:00 Leticia Hinson [facility] (NA, K, CL, CO2, GLUCOSE, Medica l Branch BUN, CREATININE, CA) CBC WITH DIFF 2020-10-24 22:27:00 Clio [facility] CT ABDOMEN PELVIS W 2020-10-24 21:20:[facility] BASIC METABOLIC PANEL 2020-10-17 23:11:00 Kalee [facility] (NA, K, CL, CO2, GLUCOSE, Medica l Branch BUN, CREATININE, CA) CLOSTRIDIUM DIFFICILE 2020-10-17 17:24:00 [facility] TOXIN [facility] MRSA / MSSA SCREEN BY 2020-10-15 01:09:00 Mandeep Garnica [facility] PHILL BERMUDEZ [facility] SURGICAL PATHOLOGY EXAM 2020-10-14 15:01:00 Kalee [facility] EXPLORATORY LAPAROTOMY 2020-10-14 13:10:00 Kalee [facility] ILEOSTOMY TAKEDOWN 2020-10-14 13:10:00 Kalee [facility] ASSIGNMENT OF BENEFITS 2020-10-14 11:29:56 Doctor Unassigned, [facility] [place] [facility] URINALYSIS 2020-10-02 05:22:00 [facility] LIPASE 2020-10-02 05:19:00 [facility] HEPATIC FUNCTION PANEL 2020-10-02 05:19:00 Ebony Chakraborty [facility] ([id number]) (ALB,T.PRO,BILI Medical Branch T,BU/BC,ALT,AST,ALK PHOS) BASIC METABOLIC PANEL 2020-10-02 05:19:00 Ebony Chakraborty [facility] (NA, K, CL, CO2, GLUCOSE, Medica l Branch BUN, CREATININE, CA) CBC WITH DIFF 2020-10-02 05:19:00 [facility] CONSENT/REFUSAL FOR 2020-10-02 04:45:02 Doctor Unassigned, [facility] DIAGNOSIS AND TREATMENT [facility] COMP. METABOLIC PANEL 2020-09-16 12:00:00 Ted [facility] ([id number]) Medical Branch COMP. METABOLIC PANEL 2020-09-15 09:58:00 Ted [facility] ([id number]) Medical Branch CREATINE KINASE 2020-09-14 16:03:00 [facility] 2020-09-14 16:03:00 Roby Jean [facility] ([id number]) (ALB,T.PRO,BILI Medical Branch T,BU/BC,ALT,AST,ALK PHOS) BASIC METABOLIC PANEL 2020-09-14 16:03:00 Romulo [facility] (NA, K, CL, CO2, GLUCOSE, Medica l Branch BUN, CREATININE, CA) HEPATITIS B SURFACE 2020-09-14 10:15:00 [facility] ANTIBODY [facility] HEPATITIS B SURFACE 2020-09-14 10:15:00 [facility] ANTIGEN [facility] HCV BY PCR 2020-09-14 10:15:00 [facility] HB ECG ROUTINE & RHYTHM 2020-09-13 18:17:57 Hellen Sorenson [facility] STRIP Medical Branch MAGNESIUM 2020-09-13 18:16[facility] 2020-09-13 18:16:00 Delta Hellen [facility] LIPASE 2020-09-13 17:15:00 Delta Hellen [facility] COMP. METABOLIC PANEL 2020-09-13 17:15:00 Hellen Sorenson [facility] ([id number]) Medical Branch CBC WITH DIFF 2020-09-13 17:15:00 Delta Hellen [facility] XR ABDOMEN 2 VW 2020-09-13 16:44:14 Delta Hellen [facility] EMERGENCY DEPARTMENT 2020-09-13 05:01:00 Doctor Unassigned, [facility] DOCUMENTS [facility] CT ABDOMEN PELVIS W 2020-09-01 08:02:47 Shayla Munoz [facility] CONTRAST Medical Branch LIPASE 2020-09-01 07:10:00 Shayla Munoz [facility] COMP. METABOLIC PANEL 2020-09-01 07:10:00 Sahyla Munoz [facility] ([id number]) Medical Branch CBC WITH DIFF 2020-09-01 07:10:00 Shayla Munoz [facility] CT ABDOMEN PELVIS W 2020-08-24 01:30:05 Matthias Silvestre [facility] CONTRAST Medical Branch LIPASE 2020-08-23 23:52:00 Matthias Silvestre [facility] CBC WITH DIFF 2020-08-23 23:52:00 Matthias Silvestre [facility] CONSENT/REFUSAL FOR 2020-08-23 22:12:59 Doctor Vanessa, [facility] DIAGNOSIS AND TREATMENT [facility] CT ABDOMEN PELVIS W 2020-08-18 02:24:35 Shayla Munoz [facility] CONTRAST Medical Branch LIPASE 2020-08-18 01:23:00 Shayla Munoz [facility] COMP. METABOLIC PANEL 2020-08-18 01:23:00 Shayla Munoz [facility] ([id number]) Medical Branch CBC WITH DIFF 2020-08-18 01:23:00 Shayla Munoz [facility] COVID-19 (ID NOW RAPID 2020-08-18 01:23:00 Shayla Munoz [facility] TESTING) Medical Branch NOTICE OF PRIVACY 2020-08-18 00:35:45 Doctor Vanessa, [facility] PRACTICES [facility] CONSENT/REFUSAL FOR 2020-08-18 00:31:36 Doctor Vanessa, [facility] DIAGNOSIS AND TREATMENT [facility] AUTHORIZATION TO RELEASE 2020-08-09 05:01:00 Doctor Vanessa, [facility] PHI TO [facility] PHOSPHORUS 2020-08-01 08:47:[address] [facility] MAGNESIUM 2020-08-01 08:47:00 [facility] BASIC METABOLIC PANEL 2020-08-01 08:47:00 [facility] (NA, K, CL, CO2, GLUCOSE, Medica l Branch BUN, CREATININE, CA) CBC WITH DIFF 2020-08-01 08:47:00 [facility] PHOSPHORUS 2020-07-31 10:06:00 [facility] MAGNESIUM 2020-07-31 10:06:00 [facility] BASIC METABOLIC PANEL 2020-07-31 10:06:00 [facility] (NA, K, CL, CO2, GLUCOSE, Medica l Branch BUN, CREATININE, CA) CBC WITH DIFF 2020-07-31 10:06:00 [facility] PHOSPHORUS 2020-07-30 09:29:00 [facility] MAGNESIUM 2020-07-30 09:29:00 [facility] BASIC METABOLIC PANEL 2020-07-30 09:29:00 [facility] (NA, K, CL, CO2, GLUCOSE, Medica l Branch BUN, CREATININE, CA) BASIC METABOLIC PANEL 2020-07-29 10:11:00 [facility] (NA, K, CL, CO2, GLUCOSE, Medica l Branch BUN, CREATININE, CA) CBC WITHOUT DIFF 2020-07-29 10:11:00 [facility] / INR 2020-07-29 10:11:00 [facility] ACTIVATED PARTIAL 2020-07-29 10:11:00 [facility] THRM[facility] T[facility] FIBRINOGEN 2020-07-29 10:11:00 [facility] EXTRA TUBE LT. BLUE 2020-07-29 10:11:00 [facility]. GREEN 2020-07-29 10:11:00 Kalee [facility] XR KUB 2020-07-29 09:55:00 Mark [facility] CBC WITHOUT DIFF 2020-07-28 10:15:00 Farooq Hartman [facility] BASIC METABOLIC PANEL 2020-07-28 09:47:00 Farooq Hartman [facility] (NA, K, CL, CO2, GLUCOSE, [facility] BUN, CREATININE, CA) BASIC METABOLIC PANEL 2020-07-27 10:39:00 Farooq Hartman [facility] (NA, K, CL, CO2, GLUCOSE, [facility] BUN, CREATININE, CA) CBC WITHOUT DIFF 2020-07-27 10:39:00 [facility] BASIC METABOLIC PANEL 2020-07-26 07:53:00 Farooq Hartman [facility] (NA, K, CL, CO2, GLUCOSE, [facility] BUN, CREATININE, CA) CBC WITHOUT DIFF 2020-07-26 07:53:00 [facility] MAGNESIUM 2020-07-26 00:13:00 [facility] BASIC METABOLIC PANEL 2020-07-26 00:13:00 Farooq Hartman [facility] (NA, K, CL, CO2, GLUCOSE, [facility] BUN, CREATININE, CA) CBC WITHOUT DIFF 2020-07-26 00:13:00 [facility] PROTHROMBIN TIME / INR 2020-07-26 00:13:00 Farooq Hartman [facility] ACTIVATED PARTIAL 2020-07-26 00:13:00 [facility] 2020-07-25 22:08:00 Kalee [facility] ILEOSTOMY 2020-07-25 20:18:00 Kalee [facility] ILEOCECECTOMY 2020-07-25 20:18:00 Kalee [facility] BASIC METABOLIC PANEL 2020-07-25 11:35:00 Akshat Tuttle [facility] (NA, K, CL, CO2, GLUCOSE, Medica l Branch BUN, CREATININE, CA) CBC WITHOUT DIFF 2020-07-25 11:35:00 [facility] CONFIRMATION 2020-07-25 04:37:00 Mercedez Negro [facility] HB ABO GROUPING 2020-07-25 04:12:00 Oliver Nunez [facility] BASIC METABOLIC PANEL 2020-07-24 07:34:00 Dc [place] [facility] (NA, K, CL, CO2, GLUCOSE, Medica l Branch BUN, CREATININE, CA) CBC WITHOUT DIFF 2020-07-24 07:34:00 Dc [place] [facility] XR ABDOMEN 1 VW 2020-07-24 06:56:00 Dc [place] [facility] EKG-12 LEAD 2020-07-24 06:39:07 Farooq [facility] COVID-19 (ID NOW RAPID 2020-07-24 00:26:00 Mercedez Negro [facility] TESTING) [facility] LACTIC ACID WHOLE BLOOD 2020-07-24 00:24:00 Mercedez Negro [facility] BLOOD CULTURE SCREEN 2020-07-23 21:41:00 Mercedez Negro [facility] LACTIC ACID WHOLE BLOOD 2020-07-23 21:41:00 Mercedez Negro [facility] CT ABDOMEN PELVIS W 2020-07-23 20:56:34 [facility] LIPASE 2020-07-23 19:31:00 Mercedez Negro [facility] HEPATIC FUNCTION PANEL 2020-07-23 19:31:00 Mercedez Negro [facility] ([id number]) (ALB,T.PRO,BILI [facility] Branch T,BU/BC,ALT,AST,ALK PHOS) BASIC METABOLIC PANEL 2020-07-23 19:31:00 Mercedez Negro [facility] (NA, K, CL, CO2, GLUCOSE, Medica l Branch BUN, CREATININE, CA) CBC WITH DIFF 2020-07-23 19:31:00 Mercedez Negro [facility] URINALYSIS 2020-07-23 19:19:00 Mercedez Negro [facility] NOTICE OF PRIVACY 2020-07-23 16:48:03 Doctor Unassigned, [facility] PRACTICES [facility] CONSENT/REFUSAL FOR 2020-07-23 16:47:54 Doctor Unassigned, [facility] DIAGNOSIS AND TREATMENT [facility] AGREEMENTS AUTHORIZATIONS 2020-07-23 05:01:00 Doctor Vanessa [facility] AND IRREVOCABLE [facility] ASSIGNMENTS (FORM 2001) CT ABDOMEN PELVIS W 2019-06-15 18:45:34 Mary Jo Dukes [facility] CONTRAST [facility] LACTIC ACID WHOLE BLOOD 2019-06-15 17:46:00 Mary Jo Dukes [facility] LIPASE 2019-06-15 17:30:00 Mary Jo Dukes [facility] HEPATIC FUNCTION PANEL 2019-06-15 17:30:00 Mary Jo Dukes [facility] ([id number]) (ALB,T.PRO,BILI Medical Branch T,BU/BC,ALT,AST,ALK PHOS) BASIC METABOLIC PANEL 2019-06-15 17:30:00 Mary Jo Dukes [facility] (NA, K, CL, CO2, GLUCOSE, Medica l Branch BUN, CREATININE, CA) CBC WITH DIFFERENTIAL 2019-06-15 17:30:00 Mary Jo Dukes Un [facility] POCT TEST 2019-06-15 17:24:00 Mary Jo Dukes [facility] URINALYSIS 2019-06-15 17:22:00 Mary Jo Dukes [facility] NOTICE OF PRIVACY 2019-06-15 16:39:09 Doctor Vanessa [facility] PRACTICES [facility] CONSENT/REFUSAL FOR 2019-06-15 16:38:53 Doctor Vanessa [facility] DIAGNOSIS [facility] TREAT[facility] Plan of Care Planned Activity Planned Date Details Comments Source Future Scheduled Test 2022-08-15 00:00:00 IMM Influenza [facility] Seasonal (>/= 19 yrs) [code = IMM Influenza Seasonal (>/= 19 yrs)] Future Scheduled Test 2022-08-15 00:00:00 IMM Influenza [facility] Seasonal (>/= 19 yrs) [code = IMM Influenza Seasonal (>/= 19 yrs)] Future Scheduled Test 2022-08-15 00:00:00 IMM Influenza [facility] Seasonal (>/= 19 yrs) [code = IMM Influenza Seasonal (>/= 19 yrs)] Future Scheduled Test 2014 00:00:00 Breast Cancer Scrn [facility] (Yearly) [code = Breast Cancer Scrn (Yearly)] Future Scheduled Test 2014 00:00:00 Breast Cancer Scrn [facility] (Yearly) [code = Breast Cancer Scrn (Yearly)] Future Scheduled Test 2014 00:00:00 Breast Cancer Scrn [facility] (Yearly) [code = Breast Cancer Scrn (Yearly)] Future Scheduled Test 2004 00:00:00 Screening for [facility] malignant neoplasm of cervix (procedure) [code = 229180259] Future Scheduled Test 2004 00:00:00 Screening for [facility] malignant neoplasm of cervix (procedure) [code = 006553765] Future Scheduled Test 2004 00:00:00 Screening for [facility] malignant neoplasm of cervix (procedure) [code = 905303979] Future Scheduled Test 2004 00:00:00 Screening for [facility] malignant neoplasm of cervix (procedure) [code = 446928742] Future Scheduled Test 2004 00:00:00 Screening for [facility] malignant neoplasm of cervix (procedure) [code = 418162340] Future Scheduled Test 2004 00:00:00 Screening for [facility] malignant neoplasm of cervix (procedure) [code = 392659291] Future Scheduled Test 1975-04-08 00:00:00 COVID-19 Vaccine (#1) [facility] [code = COVID-19 Vaccine (#1)] Future Scheduled Test 1975-04-08 00:00:00 COVID-19 Vaccine (#1) [facility] [code = COVID-19 Vaccine (#1)] Future Scheduled Test 1975-04-08 00:00:00 COVID-19 Vaccine (#1) [facility] [code = COVID-19 Vaccine (#1)] Future Scheduled Test 1974 00:00:00 Fluoride Varnish [facility] [code = Fluoride Varnish] Future Scheduled Test 1974 00:00:00 Fluoride Varnish [facility] [code = Fluoride Varnish] Future Scheduled Test 1974 00:00:00 Fluoride Varnish [facility] [code = Fluoride Varnish] Encounters Start End Encounter Admission Attending Care Care Encounter Source Date/Time Date/Time Type Type Clinicians Facility Department ID 2021-09-13 Emergency X KALEE DARREN [facility] JASIEL [id number] Univers 10:26:40 ity of [facility] 2021-09-13 Emergency [facility] [id number] Univers 06:14:00 ity of [facility] 2021-09-13 Outpatient DARREN CHUN [facility] [id number] Univers 05:23:22 ity of [facility] 2021-09-13 Emergency [facility] [id number] Univers 04:35:58 ity of [facility] 2021-09-13 Emergency [facility] [id number] Univers 02:03:39 ity of [facility] 2021-09-13 Emergency [facility] [id number] Univers 00:06:17 ity of [facility] 2021-09-12 Emergency [facility] [id number] Univers 23:33:58 ity of [facility] 2021-09-12 Emergency [facility] [id number] Univers 22:11:08 ity of [facility] 2021-09-12 Emergency [facility] [id number] Univers 20:54:06 ity of [facility] 2021-03-20 Inpatient HCAPM JOSE ROBERTO [id number] [facility] 10:26:00 41 [facility] 2021-01-10 Inpatient HCAWU JOSE ROBERTO [id number] [facility] 20:22:00 98 [facility] 2021-06-18 2021-06-18 Orders Doctor KELLY [id number] Univers 00:00:00 00:00:00 Only Unassigned, ARMAND [id number] ity of [place] [facility] [id number] Juan as [id number] [place] [id number] Branch 2021-05-31 2021-05-31 Emergency E KAPADIA, MHNW MHNW [id number] MHNW 11:46:00 20:16:00 DELORIS 2021-03-20 2021-03-20 Outpatient Rich, HCACL HCACL [id number] [facility] 18:43:30 18:43:[address] [place] [address] 2021-01-03 2021-01-03 Patient Anne Fuentes [id number] Univers 00:00:00 00:00:00 Outreach Mercedez Narayanan [id number] ity of [id number] [id number] [facility] 403 Branch 2020-11-26 2020-11-26 Outpatient [facility] [id number] Univers 09:00:00 09:00:00 ORPHEUS [id number] ity [facility] 2020-11-26 2020-11-26 Outpatient [facility] [id number] Univers 09:00:00 09:00:00 ORPHEUS ity [facility] 2020-11-26 2020-11-26 Telephone KaleeDarren [facility] 1.2.840.114 [id number] Univers 00:00:00 00:00:00 Health 350.1.13.10 it y of Cancer 4.2.7.2.686 [place] [facility] [phone] [facility] [address] 2020-11-22 2020-11-22 Outpatient [facility] 29031 6P-20 Univers 15:30:00 15:30:00 ORPHEUS [id number] ity [facility] 2020-11-22 2020-11-22 Outpatient [facility] [id number] Univers 15:30:00 15:30:00 ORPHEUS ity [facility] 2020-11-20 2020-11-20 Orders Doctor KELLY 1.2.840.114 [id number] Univers 00:00:00 00:00:00 Only Unassigned, ARMAND 350.1.13.10 ity of [place] [facility] 4.2.7.2.686 Juan as [phone] [facility] [address] 2020-11-19 2020-11-19 Outpatient R [facility] 22592 6P-20 Univers 11:15:00 11:15:00 ORPHEUS [id number] ity [facility] 2020-11-19 2020-11-19 Outpatient R [facility] 08520 52160 Univers 11:15:00 11:15:00 ORPHEUS ity of [facility] 2020-11-12 2020-11-12 Patient Deepika Ramirez 1.2.840.114 [id number] Univers 00:00:00 00:00:00 Outreach E Narayanan 350.1.13.10 i ty of [place].2.7.2.686 [place] [phone] [address] 2020-11-11 2020-11-11 Telephone [facility] 1.2.840.114 80 [id number] Univers 00:00:00 00:00:00 [facility] 350.1.13.10 ity of Cancer [place].2.7.2.686 [place] - [phone] [address] 2020-11-05 2020-11-05 Telephone [facility] 1.2.840.114 [id number] Univers 00:00:00 00:00:00 SPECIALTY 350.1.13.10 ity of CARE 4.2.7.2.686 [place] [phone] [place] [address] 2020-11-01 2020-11-01 Patient Deepika Ramirez Anne 1.2.840.114 80 [id number] Univers 00:00:00 00:00:00 Outreach E Narayanan 350.1.13.10 i ty of [place]2.7.2.[place] [id number] [address] 2020-10-31 2020-10-31 Transition Anne Damon 1.2.840.114 802 [id number] 00:00:00 00:00:00 of Care Lynda Narayanan 350.1.13.10 [place] 4.2.7.2.686 [phone] [facility] 2020-10-31 2020-10-31 Transition Anne Damon 1.2.840.114 802 [id number] Univers 00:00:00 00:00:00 of Care Lynda Narayanan 350.1.13.10 ity of [place].2.[place] [phone] [address] 2020-10-24 2020-10-30 [facility] Bl[place] 1.2.840.114 8 [id number] 13:38:00 19:38:00 Encounter Armand 350.1.13.10 Hospital 4.2.7.2.686 [id number] 9 2020-10-24 2020-10-30 [facility] [place] 1.2.840.114 8 [id number] [facility] 13:38:00 19:38:00 Encounter Coello 350.1.13.10 ity of Hospital 4.2.7.2.686 [place] as [phone] [facility] [address] 2020-10-21 2020-10-21 Transition Anne Damon 1.2.840.114 800 [id number] 00:00:00 00:00:00 of Care Lynda Narayanan 350.1.13.10 [place] 4.2.7.2.686 [id number] 403 2020-10-21 2020-10-21 Transition Anne Damon 1.2.840.114 800 [id number] Univers 00:00:00 00:00:00 of Care Lynda Narayanan 350.1.13.10 ity of [place] 4.2.7.2.686 [place] [phone] [facility] [address] 2020-10-14 2020-10-19 [facility] [place] 1.2.840.114 7 [id number] 05:48:00 15:50:00 Encounter Armand 350.1.13.10 [facility] [phone] [facility] 2020-10-14 2020-10-19 [facility] [place] 1.2.840.114 7 [id number] [facility] 05:48:00 15:50:00 Encounter Coello 350.1.13.10 ity of Hospital 4.2.7.2.686 [place] as [phone] [facility] [address] 2020-10-16 2020-10-16 Patient Deepika Ramirez Anne 1.2.840.114 79 [id number] 00:00:00 00:00:00 Outreach E Narayanan 350.1.13.10 [place] 4.2.7.2.686 [id number] 403 2020-10-16 2020-10-16 Patient Deepika Ramirez 1.2.840.114 79 [id number] Univers 00:00:00 00:00:00 Outreach E Narayanan 350.1.13.10 i ty of [place] 4.2.7.2.686 [place] [phone] [facility] [address] 2020-10-14 2020-10-14 Orders Doctor KELLY 1.2.840.114 [id number] 00:00:00 00:00:00 Only Unassigned, ARMAND 350.1.13.10 [place] [facility] [id number] [facility] 2020-10-14 2020-10-14 Orders Doctor LETICIA 1.2.840.114 [id number] Univers 00:00:00 00:00:00 Only Unassigned, ARMAND 350.1.13.10 ity of [place] [facility] 4.2.7.2.686 [place] as [phone] [address] 2020 2020 Laboratory Only, [facility] 1.2.840.114 7 [id number] 14:56:46 15:11:46 Only Test [place] 350.1.13.10 [place] 4.2.7.2.686 [place] [id number] [facility] 2020 2020 Laboratory Only, Adc Test [facility] 1.2.840. 114 [id number] Univers 14:56:46 15:11:46 Only Darren Chun [place] 350.1.13.10 ity of [place] 4.2.7.2.686 [place] [phone] [address] 2020 2020 Outpatient [facility] [id number] -20 Univers 14:45:00 14:45:00 [id number] ity of [facility] 2020 2020 Outpatient R [facility] [id number] Univers 14:45:00 14:45:00 ity of [facility] 2020-10-07 2020-10-07 Patient Deepika Ramirez 1.2.840.114 79 [id number] 00:00:00 00:00:00 Outreach E Narayanan 350.1.13.10 [place] 4.2.7.2.686 [id number] [facility] 2020-10-07 2020-10-07 Patient Deepika Ramirez 1.2.840.114 79 [id number] Univers 00:00:00 00:00:00 Outreach E Narayanan 350.1.13.10 i ty of [place] 4.2.7.2.686 [place] [id number] [facility] [address] 2020-10-01 2020-10-02 Emergency [facility] 1.2.840.114 79 [id number] Univers 23:00:00 01:14:00 Ebony Tigist Abernathy 350.1.13.10 ity of [place] 4.2.7.2.686 [place] [phone] [facility] [address] 2020-10-01 2020-10-01 Transition Anne Damon 1.2.840.114 [id number] Univers 00:00:00 00:00:00 of Care Lynda Foleyy 350.1.13.10 ity of [place].2.7.2.686 [place] [phone] [address] 2020-09-30 2020-09-30 Telephone Kalee [facility] 1.2.840.114 [id number] Univers 00:00:00 00:00:00 Health 350.1.13.10 it y of Cancer 4.2.7.2.686 [place] - [phone] Med ica[address] 2020-09-27 2020-09-27 Office Kalee [facility] 1.2.840.114 79 [id number] Univers 09:20:41 09:35:41 Visit Health 350.1.13.10 it y of [place] 4.2.7.2.686 [place] - [phone] Med ica[address] 2020-09-27 2020-09-27 Outpatient R KALEE [facility] 535 386P-20 Univers 09:30:00 09:30:00 [id number] ity of [facility] 2020-09-27 2020-09-27 Outpatient R KALEE [facility] 291 [id number] Univers 09:30:00 09:30:00 ity of [facility] 2020-09-24 2020-09-24 Telephone Darren Chun [facility] 1.2.840.114 [id number] Univers 00:00:00 00:00:00 Health 350.1.13.10 it y of Cancer 4.2.7.2.686 [place] - [phone] Med [facility] [address] 2020-09-19 2020-09-19 Transition Anne Damon 1.2.840.114 [id number] Univers 00:00:00 00:00:00 of Care Lynda Narayanan 350.1.13.10 ity of [place] 4.2.7.2.686 [place] [id number] [place] [address] [address] 2020-09-19 2020-09-19 Patient Deepika Ramirez Anne 1.2.840.114 79 [id number] Univers 00:00:00 00:00:00 Outreach E Narayanan 350.1.13.10 i ty of [place] 4.2.7.2.686 [place] [id number] [facility] [address] 2020-09-13 2020-09-18 [facility] Hellen Sorenson [facility] 1.2.840.1 14 [id number] Univers 10:29:00 17:07:00 Encounter Roby Jean 350.1.13.10 ity of [place] 4.2.7.2.686 [place] [phone] [facility] [address] 2020-09-17 2020-09-17 Patient Deepika Ramirez Anne 1.2.840.114 79 [id number] Univers 00:00:00 00:00:00 Outreach E Narayanan 350.1.13.10 i ty of [place] 4.2.7.2.686 [place] [phone] [facility] [address] 2020-09-16 2020-09-16 Patient Deepika Ramirez Anne 1.2.840.114 79 [id number] Univers 00:00:00 00:00:00 Outreach E Narayanan 350.1.13.10 i ty of [place] 4.2.7.2.686 [place] [phone] [place] [address] [address] 2020-09-16 2020-09-16 Patient Anne Fuentes 1.2.840.114 [id number] Univers 00:00:00 00:00:00 Outreach Mercedez Barlow Narayanan 350.1.13.10 ity of [place].2.7.2.[place] [phone] [address] 2020-09-13 2020-09-13 Patient Deepika Ramirez 1.2.840.114 79 [id number] Univers 00:00:00 00:00:00 Outreach E Narayanan 350.1.13.10 i ty [place]2.7.2.686 [place] [id number] [address] 2020-09-12 2020-09-12 Transition DamonSabi marquezmamie 1.2.840.114 [id number] [id number] Univers 00:00:00 00:00:00 of Care Lynda Narayanan 350.1.13.10 it[place] of [place].2.[place] [phone] [address] 2020-09-12 2020-09-12 Patient Deepika Ramirez 1.2.840.114 79 [id number] Univers 00:00:00 00:00:00 Outreach E Narayanan 350.1.13.10 i ty of [place]2.7.2.[place] [phone] [address] 2020-09-12 2020-09-12 Patient Deepika Ramirez 1.2.840.114 79 [id number] Univers 00:00:00 00:00:00 Outreach E Narayanan 350.1.13.10 i ty [place]2.7.2.[place] [phone] [address] 2020-09-12 2020-09-12 Patient Anne Fuentes 1.2.840.114 [id number] Univers 00:00:00 00:00:00 Outreach Mercedez Barlow Narayanan 350.1.13.10 ity of [place] 4.2.7.2.686 [place] [id number] [address] 2020-09-12 2020-09-12 Telephone Alejandro GASUZANNE 1.2.840.114 [id number] Univers 00:00:00 00:00:00 [place] SPECIALTY 350.1.13.10 ity of CARE 4.2.7.2.686 [facility] AT [phone] Ky maximus LARA 072 [facility] 2020-09-06 2020-09-06 Outpatient R KALEE [facility] 535 386P-20 Univers 11:00:00 11:00:00 [id number] ity of [facility] 2020-09-06 2020-09-06 [facility] [id number] Univers 11:00:00 11:00:00 ity of [facility] 2020-09-03 2020-09-03 Outpatient R [facility] [id number] -20 Univers 11:00:00 11:00:00 ity of [facility] 2020-09-03 2020-09-03 Outpatient R [facility] [id number] Univers 11:00:00 11:00:00 ity of [facility] 2020-09-01 2020-09-01 Emergency [facility] 1.2.732.753 [id number] Univers 01:42:00 07:20:00 Shayla Abernathy 350.1.13.10 ity of [place] 4.2.7.2.686 [facility] [phone] [facility] [address] 2020-08-29 2020-08-29 Telephone [facility] 1.2.840.114 [id number] Univers 00:00:00 00:00:00 Mehrdad Alonso Health 350.1.13.10 ity of Cancer 4.2.7.2.686 [facility] - [phone] Med ical MDA [address] 2020-08-28 2020-08-28 Telephone [facility] 1.2.840.114 [id number] Univers 00:00:00 00:00:00 Health 350.1.13.10 it y of Cancer 4.2.7.2.686 [facility] [place] [facility] - [phone] Med ical MDA [address] 2020-08-23 2020-08-23 Emergency [facility] 1.2.387.822 [id number] 1835 Univers 17:35:00 22:19:00 Matthias Abernathy 350.1.13.10 i ty of [place] 4.2.7.2.686 [facility] [phone] [place] [address] [place] 2020-08-20 2020-08-20 Deepika Candelario 1.2.840.114 [id number] Univers 11:14:50 12:08:13 Visit Daquan Hayes HEALTH 350.1.13.10 ity of CLINICS 4.2.7.2.686 [facility] [phone] [facility] [address] 2020-08-20 2020-08-20 Outpatient R [facility] [id number] -20 Univers 11:00:00 11:00:00 ity of [facility] 2020-08-20 2020-08-20 Outpatient R [facility] [id number] Univers 11:00:00 11:00:00 ity of [facility] 2020-08-20 2020-08-20 Telephone [facility] 1.2.840.114 [id number] Univers 00:00:00 00:00:00 Health 350.1.13.10 it y of Cancer 4.2.7.2.686 [facility] [place] [facility] [phone] Med ical MDA [address] 2020-08-17 2020-08-18 Emergency [facility] 1.2.116.333 [id number] Univers 19:34:00 00:56:00 Shayla Abernathy 350.1.13.10 ity of [place] 4.2.7.2.686 [facility] [phone] [address] 2020-08-09 2020-08-09 Office [facility] 1.2.840.114 [id number] Univers 10:32:05 10:47:05 Visit Health 350.1.13.10 it y of Cancer 4.2.7.2.686 [facility] - [phone] Med ical MDA [address] 2020-08-09 2020-08-09 [facility] 469 [id number] Univers 10:45:00 10:45:00 ity of [facility] 2020-08-09 2020-08-09 Orders Doctor KELLY 1.2.840.114 [id number] Univers 00:00:00 00:00:00 Only Unassigned, ARMAND 350.1.13.10 ity of [place] [facility] 4.2.7.2.686 Juan as [id number] [facility] [address] 2020-08-05 2020-08-05 Telephone Darren Chun [facility] 1.2.840.114 [id number] Univers 00:00:00 00:00:00 Health 350.1.13.10 it y of [place] 4.2.7.2.686 [place] - 418.7190281 Med ical [facility] [address] 2020-08-02 2020-08-02 Transition Anne Ramirez 1.2.840.114 [id number] Univers 00:00:00 00:00:00 of Care Destinee Alonso Narayanan 350.1.13.10 i ty of [place] 4.2.7.2.686 [place] 367.8401133 [facility] [address] 2020-07-23 2020-08-01 Hospital MarkyMercedez 1.2.840 .114 [id number] Univers 11:58:00 17:47:00 Encounter Shayla Munozy 350.1.13.10 ity of [facility] 4.2.7.2.686 [facility] [phone] Medical [address] 2020-07-23 2020-07-23 Emergency [facility] [id number] Univers 11:58:00 11:58:00 MERCEDEZ scott of [facility] 2020-07-23 2020-07-23 Orders Doctor KELLY 1.2.840.114 [id number] Univers 00:00:00 00:00:00 Only Unassigned, ARMAND 350.1.13.10 ity of [place] [facility] 4.2.7.2.686 [place] as [id number] [facility] [address] 2019-12-09 2019-12-09 Emergency E MHSE MHSE 7503 MH 09:16:00 09:16:00 [facility] 2019-06-15 2019-06-15 Emergency [facility] 1.2.840.114 [id number] Univers 11:46:39 15:08:00 Mary Jo Abernathy 350.1.13.10 [facility] [place] 4.2.7.2.686 [facility] 283.6647352 [facility] [address] Results Test Description Test Time Test Comments Results Result [facility] roldan Comments - CT ABD PELVIS 2021-03-20 W/CONT 13:55:00 [facility] 1975 Sex: F Name: EDEN CHAKRABORTY [facility] : 1975 Age/S: 45 / F [id number] [address] Unit #: [id number] Loc: [place] [address] Phys: Cary Villanuevashaila Wood DO Acct: [id number] Dis Date: Status: REG ER PHONE #: [phone] Exam Date: 03/20/2021 1335 FAX #: Reason: epigastric pain, h/o Crohn's, SBO EXAMS: CPT: [id number] CT ABD PELVIS W/CONT 24064 Site ID: [id number] CLINICAL HISTORY: Epigastric abdominal [...] PAGE 1 Signed Report (CONTINUED) [facility] 1975 Age/S: 45 / F [id number] [address] Unit #: [id number] Loc: [place] [address] Phys: Lemuel Villanueva DO Acct: [id number] Dis Date: Status: REG ER PHONE #: [phone] Exam Date: 03/20/2021 1335 FAX #: Reason: epigastric pain, h/o Crohn's, SBO EXAMS: CPT: [id number] CT ABD PELVIS W/CONT 32846 <Continued> CC: Lemuel Villanueva DO Technologist:Miryam Anthony RT(R)(CT) CTDI: DLP: Trnscb Date/Time: 03/20/2021 (9474) [email or web address] Orig Print D/T: S: 03/20/2021 (7939) PAGE 2 Signed Report - JUAN MIG[facility]EL [facility] 2021-03-20 W/CXR 3+V LT 13:47:00 [facility] : 1975 Sex: F [facility] 1975 Age/S: 45 / F [id number] [address] Unit #: [id number] Loc: [place] [address] Phys: Lemuel Villanueva DO Acct: [id number] Dis Date: Status: REG ER PHONE #: [phone] Exam Date: 03/20/2021 1231 FAX #: Reason: left rib pain EXAMS: CPT: [id number] XR RIBS UNI W/CXR 3+[place] [address] Fluoro Time: DAP (Gy m2): Air Kerma [...] CHAKRABORTY : 1975 Age/S: 45 / F [address] [address] Unit #: [id number] Loc: [place] [address] Phys: Lemuel Villanueva DO Acct: [id number] Dis Date: Status: REG ER PHONE #: [phone] Exam Date: 03/20/2021 1231 FAX #: Reason: left rib pain EXAMS: CPT: [id number] XR RIBS UNI W/CXR 3+[place] [address] Fluoro Time: DAP (Gy m2): Air Kerma (mGy): <Continued> Technologist: Cady Pendleton, RT(R)(MR) Trnscb Date/Time: 03/20/2021 (1347) [email or web address] Orig Print D/T: S: 03/20/2021 (6256) PAGE 2 Signed Report HCG SERUM 2021-03-20 12:51:00 Test Item Value Reference Range Interpretation Comme nts HCG SERUM (test code = HCG) < 1 mi-IU/ML 0-6 N 0 - 6 NOT > 6 SUGGESTIVE OF EARLY RISES TWO FOLD EVERY 2 DAYS; SUGGEST R ECONFIRMING AFTER 2 DAYS. 150,000-2 00,[address] TRIMESTER 10,000 - 50,000 2ND & 3RD TRIMESTER BASIC METABOLIC [id number] 12:49:00 Test Item Value Reference Range Interpretation [...] 8.5-10.1 N Completed by Nursing: NOHEPATIC FUNCTION [id number] 12:49:00 Test Item Value Reference Range Interpretation [...] N code = ALKP) Completed by Nursing: [id number] 12:49:00 Test Item Value Reference Range Interpretation Comments LIPASE (test code = LIP) 77 Unit/L 114-286 L Completed by Nursing: [id number] 12:49:00 Test Item Value Reference Range Interpretation [...] tarun yby method. Completed by Nursing: NOPROTHROMBIN [id number] 12:25:00 Test Item Value Reference Range Interpretation Comments PT PATIENT (test code = PTP) 10.7 SECONDS 9.3-12.9 N INTERNATIONAL NORMAL RATIO 0.96 INR Unit 0.8-1.2 N (test code = INR) CBC W/AUTO [id number] 12:23:00 Test Item Value Reference Range Interpretation [...] = MDIFF) UA RFLX MICR CULT IF [id number] 12:18:00 Test Item Value Reference Range Interpretation [...] URINE: CLEAN CATCHUA RFLX MICR CULT IF [id number] 12:18:00 Test Item Value Reference Range Interpretation [...] RiskForSepsis-no oth srcSOURCE OF URINE: CLEAN CATCHLACTIC [id number] 11:59:00 Test Item Value Reference Range Interpretation Comments LACTIC ACID (test code = LACT) 1.3 mmol/L 0.4-2.0 N - XR KNEE 3 V [id number] 21:05:00 [facility] : 1975 Sex: F Patient Name: EDEN CHAKRABORTY Unit No: [id number] EXAMS: CPT CODE: [id number] XR KNEE 3 V RT 15272 Location: H3 Right knee x-ray exam: 3 views, 01/10/21 CLINICAL HISTORY: Atraumatic knee pain. Comparison exam: None of the knee Knee joint is fairly well-maintained. No erosion identified. No abnormal joint effusion. No abnormal calcific deposition. The overlying soft tissues appear unremarkable. IMPRESSION:Fairly unremarkable exam at 2104 Reported and signed by: Karina Huff MD CC: Timur Middleton MD; Karissa AWAD Technologist: Daquan Armas (RT) Transcrpt Date/Tm/Trnsp: 01/10/2021 (2104) [email or web address] Orig PrintD/T: S: 01/10/2021 (2107) [facility] NAME: EDEN CHAKRABORTY [address] [place] [address] PHYS: [place] [address] : 1975 AGE: 45 SEX: F LOC: [facility] PHONE #: [phone] EXAM DATE: 01/10/2021 STATUS: REG ER FAX #: [phone] RADIOLOGY NO: [id number] PAGE 1 Signed Report CBC WITH [id number] 13:24:00 Test Item Value Reference Range Interpretation Comments WBC (test code = See_Comment [Automated 8538-2) message] The sy stem which generated this result transmitted reference range : 4.30 - 11.10 10*3/?L. The reference range was not used to interpret this result as normal/abnormal . RBC (test code = See_Comment L [Automated 025-8) message] The sy stem which generated this [...] (test code = 51.6 fL 39-49.9 H 46914-9) RDW-CV (test code = 14.3 % 12-15.5 788-0) PLT (test code = See_Comment H [Automated 777-3) message] The sy stem which generated this result transmitted reference range : 166 - 358 10*3/ ?L. The reference r madelin was not used to interpret this result as normal/abnormal . MPV (test code = 8.9 fL 9.5-12.9 L 64013-0) NRBC/100 WBC (test See_Comment [Automat ed code = 4612381237) message] The system which generated this result transmitted reference range : 0.0 - 10.0 /100 WBCs. The refer ence range was not u sed to interpret th is result as normal/abnormal . NRBC x10^3 (test code <0.01 See_Comment [Auto mated = 1722182998) message] The s ystem which generated this result transmitted reference range : 10*3/?L. The reference range was not used to interpret this result as normal/abnormal . GRAN MAT (NEUT) % 43.5 % (test code = 770-8) IMM GRAN % (test code 0.50 % = 6849287266) LYMPH % (test code = 36.9 % 736-9) MONO % (test code = 11.5 % 5905-5) EOS % (test code = 6.5 % 713-8) BASO % (test code = 1.1 % 706-2) GRAN MAT x10^3(ANC) 2.80 10*3/uL 1.88-7.09 (test code = 2832386685) IMM GRAN x10^3 (test 0.03 10*3/uL 0-0.06 code = 8276118556) LYMPH x10^3 (test code 2.37 10*3/uL 1.32-3.29 = 731-0) MONO x10^3 (test code 0.74 10*3/uL 0.33-0.92 = 742-7) EOS x10^3 (test code = 0.42 10*3/uL 0.03-0.39 H 711-2) BASO x10^3 (test code 0.07 10*3/uL 0.01-0.07 = 704-7) Lab Interpretation Abnormal (test code = 27867-2) [facility] Metabolic Panel (NA, K, CL, CO2, GLUCOSE, BUN, CREATININE, CA)2020-10-29 10:07:00 Test Item Value Reference Range Interpretation Comments NA (test code = 133 mmol/L 135-145 L 2508178041) K (test code = 4.3 mmol/L 3.5-5 2860128380) CL (test code = 102 mmol/L 98-108 5895016576) CO2 TOTAL (test code = 28 mmol/L 23-31 0766768613) AGAP (test code = 2-16 0088617488) BUN (test code = 3 mg/dL 7-23 L 2725398816) GLUCOSE (test code = 103 mg/dL 70-110 3128132596) CREATININE (test code = 0.62 mg/dL 0.5-1.04 9857955511) CALCIUM (test code = 8.4 mg/dL 8.6-10.6 L 4492876500) eGFR Calculation mL/min/1.73m2 (Non-) (test code = 2998442934) eGFR Calculation mL/min/1.73m2 () (test code = 0602400805) RAUDEL (test code = RAUDEL) Association of [...] tests). Lab Interpretation Abnormal (test code = 94790-6) [facility] [id number] 10:07:00 Test Item Value Reference Range Interpretation Comments MAGNESIUM (test code = 1762731868) 1.5 mg/dL 1.7-2.4 L Lab Interpretation (test code = Abnormal 33720-4) [facility] [id number] 13:44:00 Test Item Value Reference Range Interpretation Comments URINE CULTURE (test < 10,000 CFU/mL mixed code = 630-4) aerobic organisms - suggests endogenous microbial contamination [facility] [id number] 10:45:00 Test Item Value Reference Range Interpretation Comments PHOSPHORUS (test code = 7248175607) 3.4 mg/dL 2.5-5 Lab Interpretation (test code = Normal 57534-6) [facility] (NA, K, CL, CO2, GLUCOSE, BUN, CREATININE, CA)2020-10-28 10:45:00 Test Item Value Reference Range Interpretation Comments NA (test code = 135 mmol/L 135-145 0039540509) K (test code = 4.0 mmol/L 3.5-5 5687301264) CL (test code = 101 mmol/L 98-108 8262716886) CO2 TOTAL (test code = 31 mmol/L 23-31 3236034813) AGAP (test code = 2-16 0684479797) BUN (test code = 4 mg/dL 7-23 L 4819662813) GLUCOSE (test code = 100 mg/dL 70-110 8875236792) CREATININE (test code = 0.70 mg/dL 0.5-1.04 1198179227) CALCIUM (test code = 8.3 mg/dL 8.6-10.6 L 1212389744) eGFR Calculation mL/min/1.73m2 (Non-) (test code = 2719413916) eGFR Calculation mL/min/1.73m2 () (test code = 2609538940) RAUDEL (test code = RAUDEL) Association of [...] tests). Lab Interpretation Abnormal (test code = 52308-4) [facility]Magn[facility] [id number] 10:45:00 Test Item Value Reference Range Interpretation Comments MAGNESIUM (test code = 5512911621) 1.8 mg/dL 1.7-2.4 Lab Interpretation (test code = Normal 77642-6[facility] WITH [id number] 10:13:00 Test Item Value Reference Range Interpretation [...] RDW-SD (test code = 48.4 fL 39-49.9 85829-9) RDW-CV (test code = 13.8 % 12-15.5 788-0) PLT (test code = See_Comment H [Automated 777-3) message] The sy stem which generated this result transmitted reference range : 166 - 358 10*3/ ?L. The reference r madelin was not used to interpret this result as normal/abnormal . MPV (test code = 9.1 fL 9.5-12.9 L 23540-3) NRBC/100 WBC (test See_Comment [Automat ed code = 2016150134) message] The system which generated this result transmitted reference range : 0.0 - 10.0 /100 WBCs. The refer ence range was not u sed to interpret th is result as normal/abnormal . NRBC x10^3 (test code <0.01 See_Comment [Auto mated = 3027073813) message] The s ystem which generated this result transmitted reference range : 10*3/?L. The reference range was not used to interpret this result as normal/abnormal . GRAN MAT (NEUT) % 55.3 % (test code = 770-8) IMM GRAN % (test code 0.40 % = 2267867901) LYMPH % (test code = 29.4 % 736-9) MONO % (test code = 9.4 % 5905-5) EOS % (test code = 5.1 % 713-8) BASO % (test code = 0.4 % 706-2) GRAN MAT x10^3(ANC) 3.83 10*3/uL 1.88-7.09 (test code = 2744344050) IMM GRAN x10^3 (test 0.03 10*3/uL 0-0.06 code = 3811546841) LYMPH x10^3 (test code 2.04 10*3/uL 1.32-3.29 = 731-0) MONO x10^3 (test code 0.65 10*3/uL 0.33-0.92 = 742-7) EOS x10^3 (test code = 0.35 10*3/uL 0.03-0.39 711-2) BASO x10^3 (test code 0.03 10*3/uL 0.01-0.07 = 704-7) Lab Interpretation Abnormal (test code = 17418-1) [facility] [id number] 07:50:00 Test Item Value Reference Range Interpretation Comments MAGNESIUM (test code = 6937795464) 1.1 mg/dL 1.7-2.4 L Lab Interpretation (test code = Abnormal 96537-8) [facility]2020-[facility]-13 07:50:00 Test Item Value Reference Range Interpretation Comments APPEARANCE (test code = Hazy Clear A 6693898472) COLOR (test code = Yellow Yellow 4618440298) PH (test code = 4.8-8.0 2658823523) SP GRAVITY (test code = 1.003-1.030 6790299976) GLU U QUAL (test code = Normal Normal 9063063805) BLOOD (test code = Negative Negative 9905776850) KETONES (test code = Negative Negative 2245853934) PROTEIN (test code = Negative Negative 2887-8) UROBILIN (test code = Normal Normal 3166093848) BILIRUBIN (test code = Negative Negative 4927993532) NITRITE (test code = Negative Negative 8225465766) LEUK CHELY (test code = 25/uL Negative A 9072673537) RBC/HPF (test code = See_Comment [Autom ated message] 3428618690) The system [employer] generated this result transmitted ref erence range: 0 - 3 HP F. The reference range was not used to int erpret this result as normal/abnormal . WBC/HPF (test code = See_Comment [Autom ated message] 1315828378) The system [employer] generated this result transmitted ref erence range: 0 - 5 HP F. The reference range was not used to int erpret this result as normal/abnormal . BACTERIA (test code = Negative Negative 0687575668) MUCOUS (test code = Slight Negative LPF A 7419912661) SQ EPITH (test code = See_Comment [Auto mated message] 4140407496) The system [employer] generated this result transmitted ref erence range: <=2 HPF. The reference range was not used to int erpret this result as normal/abnormal . Lab Interpretation (test Abnormal code = 67038-3) [facility]Bas[facility] (NA, K, CL, CO2, GLUCOSE, BUN, CREATININE, CA)2020-10-27 07:45:00 Test Item Value Reference Range Interpretation Comments NA (test code = 135 mmol/L 135-145 9354253829) K (test code = 3.2 mmol/L 3.5-5 L 0656975588) CL (test code = 99 mmol/L 98-108 9606485027) CO2 TOTAL (test code = 35 mmol/L 23-31 H 6783009545) AGAP (test code = 2-16 L 9947272134) BUN (test code = 3 mg/dL 7-23 L 7770470984) GLUCOSE (test code = 104 mg/dL 70-110 4015313713) CREATININE (test code = 0.66 mg/dL 0.5-1.04 6773854125) CALCIUM (test code = 7.5 mg/dL 8.6-10.6 L 2167058996) eGFR Calculation mL/min/1.73m2 (Non-) (test code = 9229234381) eGFR Calculation mL/min/1.73m2 () (test code = 0749823450) RAUDEL (test code = RAUDEL) Association of [...] tests). Lab Interpretation Abnormal (test code = 63977-3) [facility] with Myihxkopvqsg4885-57-72 07:24:00 Test Item Value Reference Range Interpretation Comments WBC (test code = See_Comment [Automated 3210-2) message] The sy stem which generated this result transmitted reference range : 4.30 - 11.10 10*3/?L. The reference range was not used to interpret this result as normal/abnormal . RBC (test code = See_Comment L [Automated 721-3) message] The sy stem which generated this [...] RDW-SD (test code = 46.6 fL 39-49.9 41674-9) RDW-CV (test code = 13.7 % 12-15.5 788-0) PLT (test code = See_Comment H [Automated 777-3) message] The sy stem which generated this result transmitted reference range : 166 - 358 10*3/ ?L. The reference r madelin was not used to interpret this result as normal/abnormal . MPV (test code = 9.1 fL 9.5-12.9 L 15489-4) NRBC/100 WBC (test See_Comment [Automat ed code = 5136758628) message] The system which generated this result transmitted reference range : 0.0 - 10.0 /100 WBCs. The refer ence range was not u sed to interpret th is result as normal/abnormal . NRBC x10^3 (test code <0.01 See_Comment [Auto mated = 8647089716) message] The s ystem which generated this result transmitted reference range : 10*3/?L. The reference range was not used to interpret this result as normal/abnormal . GRAN MAT (NEUT) % 52.0 % (test code = 770-8) IMM GRAN % (test code 0.50 % = 7529671064) LYMPH % (test code = 34.7 % 736-9) MONO % (test code = 8.6 % 5905-5) EOS % (test code = 3.7 % 713-8) BASO % (test code = 0.5 % 706-2) GRAN MAT x10^3(ANC) 3.19 10*3/uL 1.88-7.09 (test code = 4045777382) IMM GRAN x10^3 (test 0.03 10*3/uL 0-0.06 code = 4316263707) LYMPH x10^3 (test code 2.13 10*3/uL 1.32-3.29 = 731-0) MONO x10^3 (test code 0.53 10*3/uL 0.33-0.92 = 742-7) EOS x10^3 (test code = 0.23 10*3/uL 0.03-0.39 711-2) BASO x10^3 (test code 0.03 10*3/uL 0.01-0.07 = 704-7) Lab Interpretation Abnormal (test code = 90715-1) [facility] ONLY COVID [id number] 00:32:00COVID DMT InterpretationInterpretation/Recommendations: Molecular NAAT Tests for Active Infection with the SARS-CoV-2 Virus: This patient has a history of testing negative on multiple occasions for jrbMVBS-SbM-2 virus that causes COVID-19 illness, with no [...] upon aggregate COVID-19 test results pooled from [facility]. They apply to the following tests offered at [facility] and assume the acceptable specimen type(s) were used: A. Tests for the Identification of SARS-CoV-2 RNA (Molecular NAAT Tests): ?- SARS-CoV-2 PCR assays including PantherAptima, [place] Fusion, Villarreal RealTime, and Deep Nines Xpert Xpress. ?- SARS-CoV-2 Rapid ID NOW by the ID NOW assay. ? B. Tests for the Identification of SARS-CoV-2 Antibodies: ?- Chemiluminescent immunoassays including Access SARS-CoV-2 IgM (DXI 600), ProgressusS Hnka-KGRA-MuM-2 IgG (Vitros 5600and Vitros 3600), and Villarreal SARS-CoV-2 IgG (MEDICAID SPECIALIST I System). These interpretations are autopopulated into [facility] based on computerized algorithms matching an interpretation code to the patient's setof test results, and a clinical pathologist evaluates the comments for accuracy. However, these comments do not consider testing a patient may have had outside of the [facility] system. If results for COVID-19 infection [...] lavage fluid (BAL), tracheal aspirate, etc.). ? [facility] LABORATORY SERVICESCOVID GoomfppPGQU-NpY-1 Rapid ID NOW (no units) ? ? Date ? Value ? 10/24/2020 ? Not Detected ? ? ? 2020 ? Not Detected ? ? ? 09/25/2020 ? Not Detected ? ? ? 09/10/2020 ? Not Detected ?? ? 09/04/2020 ? Not Detected ? ? ? 08/17/2020 ? Not Detected ? ? ? 07/23/2020 ? Not Detected ? [facility] SERVICESMem[facility] HospitalCBC with Differential 2020-10-26 11:58:00 Test Item Value [...] RDW-SD (test code = 47.2 fL 39-49.9 35485-9) RDW-CV (test code = 14.5 % 12-15.5 788-0) PLT (test code = See_Comment H [Automated 777-3) message] The sy stem which generated this result transmitted reference range : 166 - 358 10*3/ ?L. The reference r madelin was not used to interpret this result as normal/abnormal . MPV (test code = 10.1 fL 9.5-12.9 04414-6) NRBC/100 WBC (test See_Comment [Automat ed code = 9665934036) message] The system which generated this result transmitted reference range : 0.0 - 10.0 /100 WBCs. The refer ence range was not u sed to interpret th is result as normal/abnormal . NRBC x10^3 (test code <0.01 See_Comment [Auto mated = 3041353171) message] The s ystem which generated this result transmitted reference range : 10*3/?L. The reference range was not used to interpret this result as normal/abnormal . GRAN MAT (NEUT) % 50.3 % (test code = 770-8) IMM GRAN % (test code 0.50 % = 3740312238) LYMPH % (test code = 36.9 % 736-9) MONO % (test code = 7.6 % 5905-5) EOS % (test code = 4.2 % 713-8) BASO % (test code = 0.5 % 706-2) GRAN MAT x10^3(ANC) 2.76 10*3/uL 1.88-7.09 (test code = 7910794415) IMM GRAN x10^3 (test 0.03 10*3/uL 0-0.06 code = 0119624044) LYMPH x10^3 (test code 2.03 10*3/uL 1.32-3.29 = 731-0) MONO x10^3 (test code 0.42 10*3/uL 0.33-0.92 = 742-7) EOS x10^3 (test code = 0.23 10*3/uL 0.03-0.39 711-2) BASO x10^3 (test code 0.03 10*3/uL 0.01-0.07 = 704-7) Lab Interpretation Abnormal (test code = 60832-5) [facility] HospitalMagnesium Vedhs3869-41-27 04:43:00 Test Item Value Reference Range Interpretation Comments MAGNESIUM (test code = 9954631138) 1.0 mg/dL 1.7-2.4 L Lab Interpretation (test code = Abnormal 12349-4) [facility] Metabolic Panel (NA, K, CL, CO2, GLUCOSE, BUN, CREATININE, CA)2020-10-26 04:43:00 Test Item Value Reference Range Interpretation Comments NA (test code = 136 mmol/L 135-145 5214666661) K (test code = 2.8 mmol/L 3.5-5 LL 7972866911) CL (test code = 97 mmol/L 98-108 L 4447688951) CO2 TOTAL (test code = 35 mmol/L 23-31 H 9592935689) AGAP (test code = 2-16 0717178750) BUN (test code = 3 mg/dL 7-23 L 2646219770) GLUCOSE (test code = 116 mg/dL 70-110 H 2086729725) CREATININE (test code = 0.81 mg/dL 0.5-1.04 1945250185) CALCIUM (test code = 7.2 mg/dL 8.6-10.6 L 4774895936) eGFR Calculation mL/min/1.73m2 (Non-) (test code = 1917112433) eGFR Calculation mL/min/1.73m2 () (test code = 6034455868) RAUDEL (test code = RAUDEL) Association of [...] tests). Lab Interpretation Abnormal (test code = 70483-1) [facility] HospitalPhosphorus Tlwov3325-04-77 04:35:00 Test Item Value Reference Range Interpretation Comments PHOSPHORUS (test code = 7870699422) 3.0 mg/dL 2.5-5 Lab Interpretation (test code = Normal 57661-3) [facility] HospitalCB with Pemdbphpauom1859-48-29 04:11:00 Test Item Value Reference Range Interpretation [...] RDW-SD (test code = 45.6 fL 39-49.9 97347-8) RDW-CV (test code = 13.4 % 12-15.5 788-0) PLT (test code = See_Comment H [Automated 777-3) message] The sy stem which generated this result transmitted reference range : 166 - 358 10*3/ ?L. The reference r madelin was not used to interpret this result as normal/abnormal . MPV (test code = 9.2 fL 9.5-12.9 L 46623-5) NRBC/100 WBC (test See_Comment [Automat ed code = 5486669471) message] The system which generated this result transmitted reference range : 0.0 - 10.0 /100 WBCs. The refer ence range was not u sed to interpret th is result as normal/abnormal . NRBC x10^3 (test code <0.01 See_Comment [Auto mated = 0814677976) message] The s ystem which generated this result transmitted reference range : 10*3/?L. The reference range was not used to interpret this result as normal/abnormal . GRAN MAT (NEUT) % 55.9 % (test code = 770-8) IMM GRAN % (test code 0.40 % = 1526433773) LYMPH % (test code = 31.9 % 736-9) MONO % (test code = 8.4 % 5905-5) EOS % (test code = 3.1 % 713-8) BASO % (test code = 0.3 % 706-2) GRAN MAT x10^3(ANC) 3.80 10*3/uL 1.88-7.09 (test code = 5305290104) IMM GRAN x10^3 (test 0.03 10*3/uL 0-0.06 code = 2932919992) LYMPH x10^3 (test code 2.17 10*3/uL 1.32-3.29 = 731-0) MONO x10^3 (test code 0.57 10*3/uL 0.33-0.92 = 742-7) EOS x10^3 (test code = 0.21 10*3/uL 0.03-0.39 711-2) BASO x10^3 (test code <0.03 0.01-0.07 = 704-7) Lab Interpretation Abnormal (test code = 06985-4) [facility] HospitalCT ABDOMEN PELVIS W [id number] 14:39:02 1. ?Postsurgical changes of recent ileostomy [...] TECHNIQUE AND FINDINGS: [facility] name, wassub[facility] [...] AND FINDINGS: [facility], was[facility] for [...] reviewed this study and agree with theabove report.[facility] HospitalCOVID-19 (ID NOW RAPID TESTING)2020-10-25 01:48:00 Test Item Value Reference Range Interpretation Comments SARS-CoV-2 Rapid ID NOW Not Detected Not Detected (test code = 81153-1) RAUDEL (test code = RAUDEL) ID NOW COVID-19 Assay is an isothermal nucleic acid amplification test intended for the qualitative detection of nucleic acid from SARS-CoV-2 viral RNA in nasopharyngeal ([employer]) specimens. It is used under Emergency Use [...] from SARS-CoV-2 viral RNA in nasopharyngeal ([employer]) specimens. It is used under Emergency Use [...] indicated. Lab Interpretation Normal (test code = 62116-2) [facility] METABOLIC PANEL (NA, K, CL, CO2, GLUCOSE, BUN, CREATININE, CA)2020-10-24 23:16:00 Test Item Value Reference Range Interpretation Comments NA (test code = 137 mmol/L 135-145 8158099574) K (test code = 3.5 mmol/L 3.5-5 3359898208) CL (test code = 101 mmol/L 98-108 1915740568) CO2 TOTAL (test code = 31 mmol/L 23-31 9474844627) AGAP (test code = 2-16 8957931038) BUN (test code = 5 mg/dL 7-23 L 6149924437) GLUCOSE (test code = 80 mg/dL 70-110 7426147721) CREATININE (test code = 0.57 mg/dL 0.5-1.04 9512035316) CALCIUM (test code = 7.4 mg/dL 8.6-10.6 L 4558009270) eGFR Calculation mL/min/1.73m2 (Non-) (test code = 9748113205) eGFR Calculation mL/min/1.73m2 () (test code = 3551065245) RAUDEL (test code = RAUDEL) Association of [...] tests). Lab Interpretation Abnormal (test code = 09091-8) [facility] WITH [id number] 23:09:00 Test Item Value Reference Range Interpretation Comments WBC (test code = See_Comment [Automated 6349-2) message] The sy stem which generated this result transmitted reference range : 4.30 - 11.10 10*3/?L. The reference range was not used to interpret this result as normal/abnormal . RBC (test code = See_Comment L [Automated 196-8) message] The sy stem which generated this [...] RDW-SD (test code = 46.5 fL 39-49.9 88748-5) RDW-CV (test code = 13.4 % 12-15.5 788-0) PLT (test code = See_Comment H [Automated 777-3) message] The sy stem which generated this result transmitted reference range : 166 - 358 10*3/ ?L. The reference r madelin was not used to interpret this result as normal/abnormal . MPV (test code = 9.4 fL 9.5-12.9 L 06014-9) NRBC/100 WBC (test See_Comment [Automat ed code = 5207946053) message] The system which generated this result transmitted reference range : 0.0 - 10.0 /100 WBCs. The refer ence range was not u sed to interpret th is result as normal/abnormal . NRBC x10^3 (test code <0.01 See_Comment [Auto mated = 4712011074) message] The s ystem which generated this result transmitted reference range : 10*3/?L. The reference range was not used to interpret this result as normal/abnormal . GRAN MAT (NEUT) % 54.7 % (test code = 770-8) IMM GRAN % (test code 0.50 % = 2957876909) LYMPH % (test code = 35.9 % 736-9) MONO % (test code = 6.3 % 5905-5) EOS % (test code = 2.3 % 713-8) BASO % (test code = 0.3 % 706-2) GRAN MAT x10^3(ANC) 3.37 10*3/uL 1.88-7.09 (test code = 1228890099) IMM GRAN x10^3 (test 0.03 10*3/uL 0-0.06 code = 6373422979) LYMPH x10^3 (test code 2.21 10*3/uL 1.32-3.29 = 731-0) MONO x10^3 (test code 0.39 10*3/uL 0.33-0.92 = 742-7) EOS x10^3 (test code = 0.14 10*3/uL 0.03-0.39 711-2) BASO x10^3 (test code <0.03 0.01-0.07 = 704-7) Lab Interpretation Abnormal (test code = 65510-8) [facility] HospitalCLOSTRIDIUM DIFFICILE [id number] 17:18:00 Test Item Value Reference Range Interpretation Comments Clostridioides (Clostridium) Negative Negative difficile (test code = 31173-6) Lab Interpretation (test code = Normal 99146-2) [facility] (NA, K, CL, CO2, GLUCOSE, BUN, CREATININE, CA)2020-10-17 23:42:00 Test Item Value Reference Range Interpretation Comments NA (test code = 135 mmol/L 135-145 7694423290) K (test code = 4.0 mmol/L 3.5-5 8200855215) CL (test code = 105 mmol/L 98-108 6066759536) CO2 TOTAL (test code = 22 mmol/L 23-31 L 2192173271) AGAP (test code = 2-16 0625485199) BUN (test code = 8 mg/dL 7-23 7055090082) GLUCOSE (test code = 127 mg/dL 70-110 H 7638826036) CREATININE (test code = 0.96 mg/dL 0.5-1.04 2512497332) CALCIUM (test code = 8.7 mg/dL 8.6-10.6 1848639418) eGFR Calculation mL/min/1.73m2 (Non-) (test code = 5774798569) eGFR Calculation mL/min/1.73m2 () (test code = 2616723714) RAUDEL (test code = RAUDEL) Association of [...] tests). Lab Interpretation Abnormal (test code = 05002-5) [facility] PATHOLOGY [id number] 19:12:00 Test Item Value Reference Range Interpretation Comments Case Report (test code Surgical Pathology ? ? = [id number]) ?Case: [id number] ? Authorizing Provider: ?Darren Chun MD ?Collected: ? 10/14/2020 0901 ?Ordering Location: ? ? [facility] OR ? Received: ?10/14/2020 1106 ? Department ? Pathologist: ? Marian Gr MD ? Specimens: ? A) - STOMA, Ileostomy ? B) - COLON, Ileocolic anastamosis ? Final Diagnosis (test s7nbkZApMSTdp9xvRMCvcV code = 2245356486) FuZzEwMzNcZnRuYmpcdWMx ZLksvoMxAYstv6VkF3KxYi AwMFxhbnNpXGRlZmxhbmcx FFZrPMW2kfAzJFHvCPbmNY BaPFtzYl5vlWGxuItrAiSu OQMyu3xnacTGhikakCk2t9 unMJJlVlN0oCEcWBecS8lv ivMzhDGmETCoUQu2jT89TP NpjR0uyRRtSJehseOcXyG7 VLcjIKKlEiC1IHApbKZoRV UgX8xuASRhVClyHMYqXEvj oWZhRZP0xDqhb2Q4gBAlaI OqmWmwClAjPzJrHTPYz1Da NAd6zDgaD8QzAVMlZuQ6bW QgUGFyYWdyYXBoIEZvbnQ7 lQ37SCbhmaT5zMGqj6Ehq3 4cz066pD4dtLNtGDJ9WAUw BCPnoJDpWFXtHWG1DTNspP FtU4nxGJfrQT5lszupYCC1 MFxtYXJndDcyMFxtYXJnYj HdhCHgVGAhwBfxNOyks612 HUL9RwTpGI9tW2Gcu9I7gE 9maXRcZGVmdGFiNzIwXGZv tr3rhXCbQYfab3GuRVF3ll Q3cMVnvFUsZRBbUL10Jyop o8AsFvfkNGZ5VAFvreGbl0 Hqi5jgShTofsDrS6zgP7Ah ZHJoZWFkXHBnYnJkcmZvb3 Jre6NfvSCmnMk6n6ynXXKq UCQkcXmlh0weVDN7HMNvF6 Y8uDSek2gvILmoMSHhlBF4 paPqRLHpdNLcO4UdwN0qYY tlUN2kvmt0q9zxDiEyNM3c kubnq9ffFQtxANNfASL0Wi JwSUCjm3VgwuuwBzGto6Ak lZFgMJbcE88si135LLXtmy DnD7faqMXiglkzdBKroweu WIdyuxW1SECnJPBkDJjjNE YxXGZzMjBcbGFuZzEwMzNc aGljaFxmMVxkYmNoXGYxXG diP5khHvIsQvYzLXdmUVWg JB4iR61IU59rDFdWFY1XYW 7FUXHVOL2RTNutHAqRKZRC F792SUBnprVtWKHnLR7vWl QIZRcLVEERNV1yTV1ZHNnU UOLEWZPAN1RIAZJOOVFWFL NRP5BBGJFSFXXLSrkJX1LM U32xIA5NGKROQaGGJ3TiXA WNC5yHIdyaeJHeQIMyREBg TSKvQ43KR2cQPJBSZHSPGP NTYJgLWC5RDU9KDLxxETZb nVIpVBRzNEDSJV5DKAZBEJ SSH73ODOObZD4YK9BMHL0A WQMnDHLAH3uIET5FDfidYV IgICAgICAtIEJFTklHTiBD W1bDEbHLCaFiUOlJJXtiWI bLQ1UYVHfSDDsvP88PQ9NZ JWHEGCIFE9DEAMjrH15RI3 qRYUPSEUPCFNURTXbCAX4V C4nJG7yiNXFfHHYfKHNcEK CFWoTHGO6PU2MND3gtQOM5 f2daxSNfUXItmKQlKyAbJZ PpPYTmg1luNKGvpSNyCvGh MzNcZnRuYmpcdWMxXGRlZm Xan8xwd370xMYwa0rnRXMe GxV0cVBeFAMngKzvjdd8uV uaSbGsWMWix1xsxiRhInFy PQJwOULdDJFwjJIbA483KA MfOLinr1ngv2ZtNYXhvSGo i6O4FFLUFQarLeUnW838i7 xqs9pulmGxiIH8JMTqWVW2 KPdlkkCpygJ1OYzehLYsUv I6TZkiwwKyBQlcfgNdvnNk Svx9GZFqM967UKQ4nFgxj2 bqMTY4KHSsLOMdEarhIu0h aHMvO435LBYvQKSQHPAcuR x2XZOhibJyjnFwxYVZu247 F372j9jgJXLidiWiqSbVfo ual1ldK913RPIvqNBvjcWi MrDpXRQwiOGhbMJ8FXAlRL 2layndQDsdRZupAFRirrP7 NNYxjPMrK4VzZDGdIE2kdn phDEZ8GKxfDKQzWWA2GyDa FCVql4Oxntt4BrYujw2ghf 21DEB5i8CmcKqnHZJ9MQW2 YjPgNj2vlAWkAWCkFF6kOv UxzCBsPFTigr14dMddNWec tsGyuH8bFmNxXESmjZAvWI LeVY3vkOYbRLAysV6clrut XHBnYnJkcmhlYWRccGdicm NnKb0skRnqNJK2BCecY7gt cI2iOuO8QFenR7oslL9sRD w0ENyhbRK6KZWniO5uED9m autlb8gaORejRDvaDKUjnr D1frB0YDNnwSUiV2GiwB3l ZSWdXG1xzkzgg9fcIUF0FS faAWIkSDY5AfOfSNHoq0En eem0FbJth5XarNRgUWrxA3 1cz034YCKmcrIyW6ianPWu clrizEIoenpqHQxsxdW1FO FsXHBsYWluXGYxXGZzMjBc bGFuZzEwMzNcaGljaFxmMV qgZtTsFPPzHWswE5ghIaQs Y0GqHECaNsBfxPFgAUuwjU E7UWEfOQDci91pjXi2ELOh xthbp6KmDAPxkRWhuGRwcP 7achMso3knDSDvQXQhXHHu J9XgPXA5dXZmARXcjNQgoT H9EV3nvrKyPV2ePUAhOksg cmVzaWRlbnRzLCBmZWxsb3 bcSI7tRKNgnGzkeB7dlXK5 TSOyc6wyfJYwuFWnd5fjs7 UgbmFtZShzKSBtYXkgYXBw ZFGhYR5zJCUeiRMmdkPqf4 W2HnvumKLovvwwPxkqqvR5 FGujmvceNOKdHIvbO1eyAm EmYXPltVfjRonwi9CaAUOp XGZzMjhccGFyfX0= Clinical Information Ileostomy care [Z43.2] (test code = 8749856445) Gross Description (test d9ekaFFrJRYfdKPpGpFjVL code = 2036916827) SbWQBac0kbBAWwfKFwWfYz MzNcZnRuYmpcdWMxXGRlZm Svj4qvb570lLYoc0qbSDVh HyU8cDDbKPTnwNHwZ890WO KoRLexg0fqm7PzQRBsfHOp s7M8IWVHpudjmDk5uCdjM9 1vt3S6TmynK5ieUHRyUMHq S9MqUC0xTWOcChx0AFQ1PE U0YUGwQWJmD7QuCD4bJWYu xOUsGXr4b9gwiJlqSYJdYO W1r9zrNJtjlkZbIC5mfc8z uEj7i7chazWrLEEkLKEldJ USYLRrI8PmlWwcCg7caYs1 uFlxOhkbYPP5Ggv1DG5exp 34ivb7tKyqFYXkcofdQaL9 CWnxQMZzcelzVTq8UHjtFF KkrZHfAXYmsXIuH6AoINhu RE8khqj4XjLbNL5cgbbpOT xjKVBwMGK1CvDmAFAgj3Qy xcztCiOuxv5elk52RHS7j3 IvbCcaKHL5EUJ9TiWzIh3s yTSfCDEwRR7bFfVbpRPyET Qhiw85kEfuECbicaJmtL6e WdBlGROlrAAtXIQjHQ8feZ ZpTOGfgY0qtpsnNHRpEnWg smdgCBMlyNntqsYvHt7gsB dwQOB0XVmtG7kvuG1xXgB1 GLfiA4dhcB5lRQl7DXdkmB J7ZELsxK2pNW1psjwpw9hf XLC3VEmxKAJkdhS8keSaBD VonJMvJ3GjzV11JhFmgXTx F9AejI4eZUeoKQItvii1Sc JqJc2hmGCdpDT4FUcaFcga YWdlXHBnbmNvbnRccGduZG VjXHBsYWluXHBsYWluXGYw KALwDfPfuCngaYprpJ7hGl MgKoVkBAtvAQ7lWGMlD7fb dZBjMHBaCEAuA1aoSaAcoP 9jaFxmMVxmczIwIFNwZWNp gGTjPZFiteUtWQo3IRAyMh Uhu4vhwUElIEbnJNR3cJXg yZY8nMXbtQpzEB9rtRSkAS OXRE01bECyysafTqSjGqQf xCfiu4PuLJDsdJOze1OdoM wte9UnzSDuHDLpBMYae37n rFB8jfZhEiCmjdFpwZLge4 SvcLffzVHhWHCno29lf6Vu W7ztPX7mu5j7bCJzGOM1qo umQ5LhxZpsi7L5lGPnSWDk rM0kCBFfzmPsRJAciFXucQ RwTDIeo8N0ATZsX09tnuVr j1XrMw67LMkbTYQpSWFsrJ YjqqWgWN7egLwuEV1nNBLg NiBjbSBkaWFtZXRlcikuIC YNmMMep7MyUK44U84bQOYh lVN2lZOtd7DfoTDrwYOoWJ EheeRkqUKfxNSiwH8fZ7Zk pV73GW8dw4v5eEKkNXEqtT 6sweebHP5aULIwgAAysRTz DQXddT6kDWGeDgVtuPkbYG TlXZMjoSRzpVVicEQeV5tb FCzpEVVxeP21DWLpRQ0yIK ChFIAimVFdwC5nnfZabbRb oDFiQZUrwsV9CAAcyD1xDW VucmVtYXJrYWJsZSBpbnRl p5KrzcLgJY74G89hLJ4bZu KfeeHkOD28CYLisdZaUuNy xC87pLzmp00df6JndOCdtM PlEMwcwHscqiYiKKM2pY6u nzCemsQqs4UrhVy5tTLcKG FzIEExXHBsYWluXGYwXGZz MjBcbGFuZzEwMzNcaGljaF ayMWbjYkSnHUGzDEotL0yz CtMyPjAnSIs8RYJaQPLeBh b0LPZlUCgcMQKrLDSgTuGn bGFuZzEwMzNcaGljaFxmMV vuLtPvMKRjKPgbN3gyCiLg PqPpQGZEUa6qdLSqAYDrpl QRhQCexP4isjMHIGYlH2Mm dmVkIGZyZXNoIGxhYmVsZW Evy6v4sHN6kQPmvGB2lMZy yYraAS2opLHiKBKNWA06tW QgwkslFuDrAaOzpZarp1Xo IOJedWXxK13yfXKgJB8iq5 BfkQ1jgXUcWZIhZPSvl05l gTX6snBlLeQpixJyufAhQ1 LwVGNcd5ArqJFwkPQjAcHf hpPkqY6jq5OiXOSux1nudK P3pQBcNL99jUAixQxsXRJ2 PRAlDLBdSVFkyX9sKHy2Wt ZjoYIvInOzrGVtRvnhS11u OwZjF9ViqZaxIB3jdpokjc AiRLDfBDVmhIUao9MlDCGh LHJufaSxlwK9ytGurWSfk0 SdpRXgC33xx95pXlDnvrVp jIndCPbvlVAnm9QqNJLaOD WlrtCyJN24YnSaVYbrHEqs gZVze6CoISrvqrSkZVEmvR gcpJJctEIds1m2zS3uWNrc bHltcGhvaWQgaHlwZXJwbG PldNViNVQkRQMhBM4bQS9e UTJkuHHwu5BjbNR8nETaCH CvB4Bqb03bHPEpSQZtdNFp tLR7VAQjXOVuWaDsuEumfE 2iChXwQeSmQYghKJ4dRYVg Q7aufPFzWPKmMXQcT2ruQs NatS9ddXtnTDltxgVnBIA8 YnXjSVtbIVPhvKpdgO9gQo UlFbLvODimDM3vBPKeO8vs oAKzDSGjIZNzX8nmMkQvqQ 9jaFxmMVxmczIwIEIyLlxw YXJccGFyXHBhcmRccGxhaW 5cZjBcZnMyNFxwbGFpblxm MVxmczIwXGxhbmcxMDMzXG ppM0hjJnBkAGBdhDbxXFjw j7TtFHJbJNPgTxOcSNF9hI OSnS33HGStVYOkGBHagGdq pI5gqAW1GWQea3ncjLWtaD lccGFyfQ== Embedded Images (test code = 3307987430) [facility] [id number] 21:21:00 Test Item Value Reference Range Interpretation Comments MSSA Screen by PCRPhill (test code Negative Negative = 56422-5) MRSA/MSSA Positive? (test code = No No [id number]) Lab Interpretation (test code = Normal 71386-9) [facility] HospitalUrinalysis2020-11-[facility] 06:06:00 Test Item Value Reference Range Interpretation Comments APPEARANCE (test code = Cloudy Clear A 8776272615) COLOR (test code = Kathleen Yellow A 2778526270) PH (test code = 4.8-8.0 0761161550) SP GRAVITY (test code = 1.003-1.030 9486269958) GLU U QUAL (test code = Normal Normal 3300756917) BLOOD (test code = 1+ Negative A 0957642519) KETONES (test code = 5 mg/dL Negative A 4930757089) PROTEIN (test code = 100 mg/dL Negative A 2887-8) UROBILIN (test code = 2.0 mg/dL Normal A 1405747295) BILIRUBIN (test code = Negative Negative 3039271619) NITRITE (test code = Negative Negative 4081628596) LEUK CHELY (test code = Negative Negative 9485046871) RBC/HPF (test code = See_Comment H [Autom ated message] 4419069560) The system [employer] generated this result transmit carl reference range : 0 - 3 HPF. The refe rence range was not u sed to interpret th is result as normal/abnormal . WBC/HPF (test code = See_Comment [Autom ated message] 9458781307) The system [employer] generated this result transmit carl reference range : 0 - 5 HPF. The refe rence range was not u sed to interpret th is result as normal/abnormal . BACTERIA (test code = Moderate Negative A 3536333569) MUCOUS (test code = Marked Negative LPF A 1923370896) SQ EPITH (test code = HPF 9911972593) CA OXALATE (test code = See_Comment H [Au tomated message] 0080682851) The system [employer] generated this result transmit carl reference range : <=1 HPF. The refere nce range was not u sed to interpret th is result as normal/abnormal . HYAL CAST (test code = See_Comment H [Aut omated message] 7004086019) The system [employer] generated this result transmit carl reference range : <=2 LPF. The refere nce range was not u sed to interpret th is result as normal/abnormal . GRAN CASTS (test code = See_Comment H [Au tomated message] 7132969475) The system [employer] generated this result transmit carl reference range : <=1 LPF. The refere nce range was not u sed to interpret th is result as normal/abnormal . Lab Interpretation (test Abnormal code = 99321-8) [facility] (ALB, T.PRO, BILI T, BU/BC, ALT, AST, ALK PHOS)2020-10-02 05:46:00 Test Item Value Reference Range Interpretation Comments TOTAL BILI (test code = 5627009383) 1.0 mg/dL 0.1-1.1 BILI UNCON (test code = 2374378652) 0.6 mg/dL 0.1-1.1 BILI CONJ (test code = 6726481813) 0.0 mg/dL 0-0.3 T PROTEIN (test code = 7628415633) 9.9 g/dL 6.3-8.2 H ALBUMIN (test code = 7412811794) 5.4 g/dL 3.5-5 H ALK PHOS (test code = 9686370948) 153 U/L 34-122 H ALTv (test code = 1742-6) 62 U/L 5-35 H AST(SGOT) (test code = 6501187894) 51 U/L 13-40 H Lab Interpretation (test code = Abnormal 60312-5) [facility] HospitalLipase [id number] 05:46:00 Test Item Value Reference Range Interpretation Comments LIPASE (test code = 7906782620) 117 U/L 0-220 Lab Interpretation (test code = Normal 93085-6) [facility] (NA, K, CL, CO2, GLUCOSE, BUN, CREATININE, CA)2020-10-02 05:46:00 Test Item Value Reference Range Interpretation Comments NA (test code = 135 mmol/L 135-145 1430952614) K (test code = 4.4 mmol/L 3.5-5 0200934224) CL (test code = 102 mmol/L 98-108 2853535478) CO2 TOTAL (test code = 19 mmol/L 23-31 L 8198629089) AGAP (test code = 2-16 7586986408) BUN (test code = 19 mg/dL 7-23 6014680341) GLUCOSE (test code = 135 mg/dL 70-110 H 7672493875) CREATININE (test code = 1.19 mg/dL 0.5-1.04 H 7093061705) CALCIUM (test code = 11.3 mg/dL 8.6-10.6 H 7695234835) eGFR Calculation mL/min/1.73m2 (Non-) (test code = 2714925171) eGFR Calculation mL/min/1.73m2 () (test code = 6162918321) RAUDEL (test code = RAUDEL) Association of [...] tests). Lab Interpretation Abnormal (test code = 20778-7) [facility] with Bltyntpeijyy3958-03-27 05:34:00 Test Item Value Reference Range Interpretation Comments WBC (test code = See_Comment [Automated 4290-2) message] The sy stem which generated this [...] RDW-SD (test code = 40.6 fL 39-49.9 99406-7) RDW-CV (test code = 11.9 % 12-15.5 L 788-0) PLT (test code = See_Comment H [Automated 777-3) message] The sy stem which generated this result transmitted reference range : 166 - 358 10*3/ ?L. The reference r madelin was not used to interpret this result as normal/abnormal . MPV (test code = 9.9 fL 9.5-12.9 72354-9) NRBC/100 WBC (test See_Comment [Automat ed code = 2467260933) message] The system which generated this result transmitted reference range : 0.0 - 10.0 /100 WBCs. The refer ence range was not u sed to interpret th is result as normal/abnormal . NRBC x10^3 (test code <0.01 See_Comment [Auto mated = 5170164630) message] The s ystem which generated this result transmitted reference range : 10*3/?L. The reference range was not used to interpret this result as normal/abnormal . GRAN MAT (NEUT) % 38.8 % (test code = 770-8) IMM GRAN % (test code 0.20 % = 3533799285) LYMPH % (test code = 51.7 % 736-9) MONO % (test code = 7.4 % 5905-5) EOS % (test code = 0.9 % 713-8) BASO % (test code = 1.0 % 706-2) GRAN MAT x10^3(ANC) 2.27 10*3/uL 1.88-7.09 (test code = 1092162060) IMM GRAN x10^3 (test <0.03 0-0.06 code = 6491940717) LYMPH x10^3 (test code 3.02 10*3/uL 1.32-3.29 = 731-0) MONO x10^3 (test code 0.43 10*3/uL 0.33-0.92 = 742-7) EOS x10^3 (test code = 0.05 10*3/uL 0.03-0.39 711-2) BASO x10^3 (test code 0.06 10*3/uL 0.01-0.07 = 704-7) Lab Interpretation Abnormal (test code = 06135-2) [facility] HospitalHCV BY [id number] 17:03:00 Test Item Value Reference Range Interpretation Comments HCV by Real-Time Not Detected Not detected IU/mL PCR (test code = 1951518316) RAUDEL (test code = [employer] m2000 RealTime HCV RAUDEL) reverse car dropper-polymerase chain reaction(RT-PCR) assay is used. It is [...] 0 IU/mL,>100,000,000 IU/mL: >upper limit of quantification. [facility]. METABOLIC PANEL ([id number])2020-09-16 15:03:00 Test Item Value Reference Range Interpretation Comments NA (test code = 135 mmol/L 135-145 3438540525) K (test code = 4.4 mmol/L 3.5-5 9051317958) CL (test code = 111 mmol/L 98-108 H 5875005970) CO2 TOTAL (test code = 21 mmol/L 23-31 L 4364420849) AGAP (test code = 2-16 8072171736) BUN (test code = 11 mg/dL 7-23 2582931808) GLUCOSE (test code = 115 mg/dL 70-110 H 8255064240) CREATININE (test code = 0.83 mg/dL 0.5-1.04 1606711331) TOTAL BILI (test code = 0.5 mg/dL 0.1-1.6 0123718258) CALCIUM (test code = 8.3 mg/dL 8.6-10.6 L 4712118700) T PROTEIN (test code = 5.4 g/dL 6.3-8.2 L 5401132609) ALBUMIN (test code = 2.8 g/dL 3.5-5 L 6923000783) ALK PHOS (test code = 71 U/L 34-122 4676862053) ALTv (test code = 31 U/L 5-35 1742-6) AST(SGOT) (test code = 31 U/L 13-40 2230450983) eGFR Calculation mL/min/1.73m2 (Non-) (test code = 4297478657) eGFR Calculation mL/min/1.73m2 () (test code = 2371842184) RAUDEL (test code = RAUDEL) Association of [...] tests). Lab Interpretation Abnormal (test code = 25605-8) [facility]. METABOLIC PANEL ([id number])2020-09-15 11:19:00 Test Item Value Reference Range Interpretation Comments NA (test code = 135 mmol/L 135-145 4232648542) K (test code = 3.9 mmol/L 3.5-5 5389648283) CL (test code = 104 mmol/L 98-108 2216159210) CO2 TOTAL (test code = 27 mmol/L 23-31 8147995950) AGAP (test code = 2-16 1717767397) BUN (test code = 15 mg/dL 7-23 2168810542) GLUCOSE (test code = 153 mg/dL 70-110 H 8067522691) CREATININE (test code = 0.91 mg/dL 0.5-1.04 5233975207) TOTAL BILI (test code = 0.4 mg/dL 0.1-1.3 1351037948) CALCIUM (test code = 9.2 mg/dL 8.6-10.6 4949796007) T PROTEIN (test code = 7.2 g/dL 6.3-8.2 5208408201) ALBUMIN (test code = 3.8 g/dL 3.5-5 6359793030) ALK PHOS (test code = 106 U/L 34-122 7389777103) ALTv (test code = 43 U/L 5-35 H 1742-6) AST(SGOT) (test code = 28 U/L 13-40 9356234452) eGFR Calculation mL/min/1.73m2 (Non-) (test code = 5566446071) eGFR Calculation mL/min/1.73m2 () (test code = 2305081457) RAUDEL (test code = RAUDEL) Association of [...] tests). Lab Interpretation Abnormal (test code = 81067-3) [facility]HEPATIC FUNCTION PANEL (65646) (ALB,T.PRO,BILI T,BU/BC,ALT,AST,ALK PHOS)2020-09-14 19:50:00 Test Item Value Reference Range Interpretation Comments TOTAL BILI (test code = 6995875693) 0.5 mg/dL 0.1-1.1 BILI UNCON (test code = 2101517489) 0.4 mg/dL 0.1-1.1 BILI CONJ (test code = 1013510184) 0.0 mg/dL 0-0.3 T PROTEIN (test code = 8420951150) 6.5 g/dL 6.3-8.2 ALBUMIN (test code = 3571800982) 3.4 g/dL 3.5-5 L ALK PHOS (test code = 6457334764) 95 U/L 34-122 ALTv (test code = 1742-6) 45 U/L 5-35 H AST(SGOT) (test code = 4660604495) 31 U/L 13-40 Lab Interpretation (test code = Abnormal 50273-0) [facility] HospitalCREATINE [id number] 18:49:00 Test Item Value Reference Range Interpretation Comments CK (test code = 4681238196) 44 U/L 33-194 Lab Interpretation (test code = Normal 91661-9) [facility] HospitalBASIC METABOLIC PANEL (NA, K, CL, CO2, GLUCOSE, BUN, CREATININE, CA)2020-09-14 17:05:00 Test Item Value Reference Range Interpretation Comments NA (test code = 136 mmol/L 135-145 9850162262) K (test code = 3.9 mmol/L 3.5-5 5340844574) CL (test code = 104 mmol/L 98-108 8529919518) CO2 TOTAL (test code = 27 mmol/L -31 9924732865) AGAP (test code = 2-16 4342541626) BUN (test code = 17 mg/dL 7-23 9355026872) GLUCOSE (test code = 114 mg/dL 70-110 H 9273843826) CREATININE (test code = 0.84 mg/dL 0.5-1.04 6025944359) CALCIUM (test code = 8.9 mg/dL 8.6-10.6 2693894256) eGFR Calculation mL/min/1.73m2 (Non-) (test code = 3330738453) eGFR Calculation mL/min/1.73m2 () (test code = 2064162586) RAUDEL (test code = RAUDEL) Association of [...] tests). Lab Interpretation Abnormal (test code = 85989-6) [facility] B SURFACE [id number] 16:44:00 Test Item Value Reference Range Interpretation Comments HBsAB (test code = Negative 7148711990) HBsAb mIU/mL Semi-Quantitative (test code = 8092564477) RAUDEL (test code = Interpretation: RAUDEL) ?Hepatitis B Surface Antibody ? Negative - Patient is considered to be not immune to infection with HBV. ? ? Positive - Anti-HBs detected at greater than or equal to 12 mIU/mL. ?Patient is considered to be immune to infection with HBV. ? [facility] B SURFACE [id number] 16:27:00 Test Item Value Reference Range Interpretation Comments HBsAg Semi-Quantitative (test code = Negative Negative 5195-3) [facility]MAGNESIUM2020-10-31 04:05:00 Test Item Value Reference Range Interpretation Comments MAGNESIUM (test code = 6541742032) 1.6 mg/dL 1.7-2.4 L Lab Interpretation (test code = Abnormal 06698-4) [facility] HospitalTROPONIN [id number] 20:02:00 Test Item Value Reference Range Interpretation Comments TROPONIN I (test <0.012 See_Comment [Automated code = 4242512494) message] The system which generated this result [...] ? Lab Interpretation Normal (test code = 55517-6) [facility]COMP. METABOLIC PANEL (68355)2020-09-13 17:43:00 Test Item Value Reference Range Interpretation Comments NA (test code = 139 mmol/L 135-145 6800315022) K (test code = 4.5 mmol/L 3.5-5 6924357745) CL (test code = 99 mmol/L 98-108 5773539718) CO2 TOTAL (test code = 31 mmol/L 23-31 5607026368) AGAP (test code = 2-16 0968853714) BUN (test code = 14 mg/dL 7-23 1323724476) GLUCOSE (test code = 115 mg/dL 70-110 H 5234798387) CREATININE (test code = 1.31 mg/dL 0.5-1.04 H 7023062556) TOTAL BILI (test code = 1.4 mg/dL 0.1-1.1 H 6833522666) CALCIUM (test code = 10.6 mg/dL 8.6-10.6 5866242842) T PROTEIN (test code = 9.1 g/dL 6.3-8.2 H 5255777851) ALBUMIN (test code = 4.7 g/dL 3.5-5 7178419798) ALK PHOS (test code = 160 U/L 34-122 H 4785587470) ALTv (test code = 84 U/L 5-35 H 1742-6) AST(SGOT) (test code = 51 U/L 13-40 H 0514575430) eGFR Calculation mL/min/1.73m2 (Non-) (test code = 0204025201) eGFR Calculation mL/min/1.73m2 () (test code = 2006972898) RAUDEL (test code = RAUDEL) Association of [...] tests). Lab Interpretation Abnormal (test code = 25276-3) [facility]LIPASE2020-10-30 17:43:00 Test Item Value Reference Range Interpretation Comments LIPASE (test code = 3279596324) 88 U/L 0-220 Lab Interpretation (test code = Normal 67348-9) [facility] HospitalCB WITH [id number] 17:31:00 Test Item Value Reference Range Interpretation Comments WBC (test code = See_Comment [Automated 5890-2) message] The sy stem which generated this result transmitted reference range : 4.30 - 11.10 10*3/?L. The reference range was not used to interpret this result as normal/abnormal . RBC (test code = See_Comment [Automated 157-8) message] The sy stem which generated this [...] RDW-SD (test code = 44.9 fL 39-49.9 16330-3) RDW-CV (test code = 12.9 % 12-15.5 788-0) PLT (test code = See_Comment H [Automated 017-3) message] The sy stem which generated this result transmitted reference range : 166 - 358 10*3/ ?L. The reference r madelin was not used to interpret this result as normal/abnormal . MPV (test code = 9.7 fL 9.5-12.9 64106-4) NRBC/100 WBC (test See_Comment [Automat ed code = 8975141395) message] The system which generated this result transmitted reference range : 0.0 - 10.0 /100 WBCs. The refer ence range was not u sed to interpret th is result as normal/abnormal . NRBC x10^3 (test code <0.01 See_Comment [Auto mated = 4819478712) message] The s ystem which generated this result transmitted reference range : 10*3/?L. The reference range was not used to interpret this result as normal/abnormal . GRAN MAT (NEUT) % 80.0 % (test code = 770-8) IMM GRAN % (test code 0.50 % = 5590032816) LYMPH % (test code = 10.4 % 736-9) MONO % (test code = 7.1 % 5905-5) EOS % (test code = 1.5 % 713-8) BASO % (test code = 0.5 % 706-2) GRAN MAT x10^3(ANC) 7.11 10*3/uL 1.88-7.09 H (test code = 4691230951) IMM GRAN x10^3 (test 0.04 10*3/uL 0-0.06 code = 8954005757) LYMPH x10^3 (test code 0.92 10*3/uL 1.32-3.29 L = 731-0) MONO x10^3 (test code 0.63 10*3/uL 0.33-0.92 = 742-7) EOS x10^3 (test code = 0.13 10*3/uL 0.03-0.39 711-2) BASO x10^3 (test code 0.04 10*3/uL 0.01-0.07 = 704-7) Lab Interpretation Abnormal (test code = 00614-9) [facility] HospitalXR ABDOMEN 2 [id number] 17:08:57Overall, bowel gas pattern is felt to [...] pelvis.Ostomy appliance projects over the right lower quadrant.[facility]. METABOLIC PANEL (96937)2020-09-01 07:34:00 Test Item Value Reference Range Interpretation Comments NA (test code = 137 mmol/L 135-145 0040606334) K (test code = 3.6 mmol/L 3.5-5 6560900641) CL (test code = 100 mmol/L 98-108 9626960221) CO2 TOTAL (test code = 26 mmol/L 23-31 2639488542) AGAP (test code = 2-16 1720546680) BUN (test code = 19 mg/dL 7-23 9644519114) GLUCOSE (test code = 171 mg/dL 70-110 H 6620292598) CREATININE (test code = 0.98 mg/dL 0.5-1.04 4814298975) TOTAL BILI (test code = 0.8 mg/dL 0.1-1.1 7009304802) CALCIUM (test code = 10.4 mg/dL 8.6-10.6 6136627046) T PROTEIN (test code = 8.9 g/dL 6.3-8.2 H 7065223260) ALBUMIN (test code = 4.9 g/dL 3.5-5 2173885774) ALK PHOS (test code = 109 U/L 34-122 0588977594) ALTv (test code = 46 U/L 5-35 H 1742-6) AST(SGOT) (test code = 26 U/L 13-40 0283878772) eGFR Calculation mL/min/1.73m2 (Non-) (test code = 8911139756) eGFR Calculation mL/min/1.73m2 () (test code = 3010689098) RAUDEL (test code = RAUDEL) Association of [...] tests). Lab Interpretation Abnormal (test code = 35363-9) [facility]2020-10-18 07:34:00 Test Item Value Reference Range Interpretation Comments LIPASE (test code = 8003116130) 103 U/L 0-220 Lab Interpretation (test code = Normal 94522-3) [facility] WITH [id number] 07:19:00 Test Item Value Reference Range Interpretation [...] RDW-SD (test code = 40.4 fL 39-49.9 69142-8) RDW-CV (test code = 12.1 % 12-15.5 788-0) PLT (test code = See_Comment [Automated 777-3) message] The sy stem which generated this result transmitted reference range : 166 - 358 10*3/ ?L. The reference r madelin was not used to interpret this result as normal/abnormal . MPV (test code = 10.7 fL 9.5-12.9 30302-1) NRBC/100 WBC (test See_Comment [Automat ed code = 0242090500) message] The system which generated this result transmitted reference range : 0.0 - 10.0 /100 WBCs. The refer ence range was not u sed to interpret th is result as normal/abnormal . NRBC x10^3 (test code <0.01 See_Comment [Auto mated = 9455493635) message] The s ystem which generated this result transmitted reference range : 10*3/?L. The reference range was not used to interpret this result as normal/abnormal . GRAN MAT (NEUT) % 77.7 % (test code = 770-8) IMM GRAN % (test code 0.20 % = 0778974530) LYMPH % (test code = 18.3 % 736-9) MONO % (test code = 3.5 % 5905-5) EOS % (test code = 0.0 % 713-8) BASO % (test code = 0.3 % 706-2) GRAN MAT x10^3(ANC) 4.63 10*3/uL 1.88-7.09 (test code = 3999645063) IMM GRAN x10^3 (test <0.03 0-0.06 code = 2241890807) LYMPH x10^3 (test code 1.09 10*3/uL 1.32-3.29 L = 731-0) MONO x10^3 (test code 0.21 10*3/uL 0.33-0.92 L = 742-7) EOS x10^3 (test code = <0.03 0.03-0.39 L 711-2) BASO x10^3 (test code <0.03 0.01-0.07 = 704-7) Lab Interpretation Abnormal (test code = 24688-6) [facility]2020-10-10 02:48:00 Test Item Value Reference Range Interpretation Comments LIPASE (test code = 9896760055) 171 U/L 0-220 Lab Interpretation (test code = Normal 36331-6) [facility] WITH [id number] 02:25:00 Test Item Value Reference Range Interpretation Comments WBC (test code = See_Comment [Automated message] 6690-2) The system [employer] generated this result transmitted ref erence range: 4.30 - 1 1.10 10*3/?L. The re ference range was not u sed to interpret this result as normal/abnor mal. RBC (test code = See_Comment [Automated message] 789-8) The system [employer] generated this result transmitted ref erence range: [...] RDW-SD (test code 42.3 fL 39-49.9 = 65009-5) RDW-CV (test code 12.1 % 12-15.5 = 788-0) PLT (test code = See_Comment [Automated message] 777-3) The system [employer] generated this result transmitted ref erence range: 166 - 35 8 10*3/?L. The re ference range was not u sed to interpret this result as normal/abnor mal. MPV (test code = 11.0 fL 9.5-12.9 87503-1) NRBC/100 WBC (test See_Comment [Automat ed message] code = 0192128784) The syste m which generated this result transmitted ref erence range: 0.0 - 10 .0 /100 WBCs. The refer ence range was not u sed to interpret this result as normal/abnor mal. NRBC x10^3 (test <0.01 See_Comment [Automated message] code = 9703485931) The syste m which generated this result transmitted ref erence range: 10*3/?L. The reference range was not used to interpr et this result as normal/abnormal . GRAN MAT (NEUT) % 44.5 % (test code = 770-8) IMM GRAN % (test 0.20 % code = 6045268763) LYMPH % (test code 43.0 % = 736-9) MONO % (test code 9.5 % = 5905-5) EOS % (test code = 1.7 % 713-8) BASO % (test code 1.1 % = 706-2) GRAN MAT 2.35 10*3/uL 1.88-7.09 x10^3(ANC) (test code = 1122555930) IMM GRAN x10^3 <0.03 0-0.06 (test code = 6217671087) LYMPH x10^3 (test 2.27 10*3/uL 1.32-3.29 code = 731-0) MONO x10^3 (test 0.50 10*3/uL 0.33-0.92 code = 742-7) EOS x10^3 (test 0.09 10*3/uL 0.03-0.39 code = 711-2) BASO x10^3 (test 0.06 10*3/uL 0.01-0.07 code = 704-7) [facility] PEL[facility] W [id number] 03:50:29Addendum by Rhett Harden MD on 08/17/2020 11:01 PM* * * * * * * * ADDENDUM: * * * * * * * * The finding regarding left breast nodule was discussed with Dr MunozKbkeuyvd36/3/2020 10:53 PM Preliminary Report Dictated by Resident: [...] reviewed this study and agree with theabove report.[facility]COVID[facility] (ID NOW RAPID TESTING) 2020-08-18 01:55:00 Test Item Value Reference Range Interpretation Comments SARS-CoV-2 Rapid ID NOW Not Detected Not Detected (test code = 03905-1) RAUDEL (test code = RAUDEL) ID NOW COVID-19 Assay is an isothermal nucleic acid amplification test intended for the qualitative detection of nucleic acid from SARS-CoV-2 viral RNA in nasopharyngeal (HEAD MEN'S TENNIS COACH) specimens. It is used under Emergency Use [...] indicated. Lab Interpretation Normal (test code = 18392-8) [facility]. METABOLIC PANEL ([id number])2020-08-18 01:47:00 Test Item Value Reference Range Interpretation Comments NA (test code = 135 mmol/L 135-145 2634089784) K (test code = 4.1 mmol/L 3.5-5 5956156129) CL (test code = 96 mmol/L 98-108 L 3535601227) CO2 TOTAL (test code = 30 mmol/L 23-31 9243454465) AGAP (test code = 2-16 7516161407) BUN (test code = 17 mg/dL 7-23 4947205270) GLUCOSE (test code = 149 mg/dL 70-110 H 8292431012) CREATININE (test code = 1.21 mg/dL 0.5-1.04 H 5057756282) TOTAL BILI (test code = 0.7 mg/dL 0.1-1.9 5827805334) CALCIUM (test code = 10.5 mg/dL 8.6-10.6 6711267739) T PROTEIN (test code = 8.6 g/dL 6.3-8.2 H 4204513662) ALBUMIN (test code = 4.4 g/dL 3.5-5 3124802669) ALK PHOS (test code = 170 U/L 34-122 H 0195219405) ALTv (test code = 145 U/L 5-35 H 1742-6) AST(SGOT) (test code = 70 U/L 13-40 H 7221755329) eGFR Calculation mL/min/1.73m2 (Non-) (test code = 0728881983) eGFR Calculation mL/min/1.73m2 () (test code = 7323097654) RAUDEL (test code = RAUDEL) Association of [...] tests). Lab Interpretation Abnormal (test code = 07175-4) [facility] 01:47:00 Test Item Value Reference Range Interpretation Comments LIPASE (test code = 7731096826) 172 U/L 0-220 Lab Interpretation (test code = Normal 38732-5) [facility] WITH [id number] 01:34:00 Test Item Value Reference Range Interpretation [...] RDW-SD (test code = 41.1 fL 39-49.9 59515-9) RDW-CV (test code = 11.8 % 12-15.5 L 788-0) PLT (test code = See_Comment [Automated 777-3) message] The sy stem which generated this result transmitted reference range : 166 - 358 10*3/ ?L. The reference r madelin was not used to interpret this result as normal/abnormal . MPV (test code = 10.4 fL 9.5-12.9 61887-8) NRBC/100 WBC (test See_Comment [Automat ed code = 5986077419) message] The system which generated this result transmitted reference range : 0.0 - 10.0 /100 WBCs. The refer ence range was not u sed to interpret th is result as normal/abnormal . NRBC x10^3 (test code <0.01 See_Comment [Auto mated = 5980904403) message] The s ystem which generated this result transmitted reference range : 10*3/?L. The reference range was not used to interpret this result as normal/abnormal . GRAN MAT (NEUT) % 50.9 % (test code = 770-8) IMM GRAN % (test code 0.40 % = 5623321998) LYMPH % (test code = 35.9 % 736-9) MONO % (test code = 9.9 % 5905-5) EOS % (test code = 2.2 % 713-8) BASO % (test code = 0.7 % 706-2) GRAN MAT x10^3(ANC) 2.31 10*3/uL 1.88-7.09 (test code = 0496629526) IMM GRAN x10^3 (test <0.03 0-0.06 code = 8365364649) LYMPH x10^3 (test code 1.63 10*3/uL 1.32-3.29 = 731-0) MONO x10^3 (test code 0.45 10*3/uL 0.33-0.92 = 742-7) EOS x10^3 (test code = 0.10 10*3/uL 0.03-0.39 711-2) BASO x10^3 (test code 0.03 10*3/uL 0.01-0.07 = 704-7) Lab Interpretation Abnormal (test code = 42580-4) [facility] WITH [id number] 10:12:00 Test Item Value Reference Range Interpretation Comments WBC (test code = See_Comment H [Automated 0490-2) message] The sy stem which generated this result transmitted reference range : 4.30 - 11.10 10*3/?L. The reference range was not used to interpret this result as normal/abnormal . RBC (test code = See_Comment L [Automated 339-8) message] The sy stem which generated this [...] RDW-SD (test code = 45.2 fL 39-49.9 04727-5) RDW-CV (test code = 12.9 % 12-15.5 788-0) PLT (test code = See_Comment H [Automated 777-3) message] The sy stem which generated this result transmitted reference range : 166 - 358 10*3/ ?L. The reference r madelin was not used to interpret this result as normal/abnormal . MPV (test code = 9.8 fL 9.5-12.9 74548-2) NRBC/100 WBC (test See_Comment [Automat ed code = [id number]) message] The system which generated this result transmitted reference range : 0.0 - 10.0 /100 WBCs. The refer ence range was not u sed to interpret th is result as normal/abnormal . NRBC x10^3 (test code <0.01 See_Comment [Auto mated = [id number]) message] The s ystem which generated this result transmitted reference range : 10*3/?L. The reference range was not used to interpret this result as normal/abnormal . GRAN MAT (NEUT) % 64.8 % (test code = 770-8) IMM GRAN % (test code 2.10 % = 3699453389) LYMPH % (test code = 21.9 % 736-9) MONO % (test code = 9.0 % 5905-5) EOS % (test code = 1.9 % 713-8) BASO % (test code = 0.3 % 706-2) GRAN MAT x10^3(ANC) 8.61 10*3/uL 1.88-7.09 H (test code = 5130029742) IMM GRAN x10^3 (test 0.28 10*3/uL 0-0.06 H code = 7618277344) LYMPH x10^3 (test code 2.91 10*3/uL 1.32-3.29 = 731-0) MONO x10^3 (test code 1.20 10*3/uL 0.33-0.92 H = 742-7) EOS x10^3 (test code = 0.25 10*3/uL 0.03-0.39 711-2) BASO x10^3 (test code 0.04 10*3/uL 0.01-0.07 = 704-7) REACT LYMPHS (test Rare code = 4222942539) Lab Interpretation Abnormal (test code = 16658-8) [facility] (NA, K, CL, CO2, GLUCOSE, BUN, CREATININE, CA)2020-08-01 09:46:00 Test Item Value Reference Range Interpretation Comments NA (test code = 137 mmol/L 135-145 7019063409) K (test code = 4.0 mmol/L 3.5-5 1589553261) CL (test code = 100 mmol/L 98-108 6475588834) CO2 TOTAL (test code = 30 mmol/L 23-31 3479350062) AGAP (test code = 2-16 5492174077) BUN (test code = 5 mg/dL 7-23 L 2392239906) GLUCOSE (test code = 139 mg/dL 70-110 H 9819298236) CREATININE (test code = 0.73 mg/dL 0.5-1.04 3514263550) CALCIUM (test code = 9.3 mg/dL 8.6-10.6 6326844077) eGFR Calculation mL/min/1.73m2 (Non-) (test code = 8507831700) eGFR Calculation mL/min/1.73m2 () (test code = 6472396714) RAUDEL (test code = RAUDEL) Association of [...] tests). Lab Interpretation Abnormal (test code = 00898-9) [facility] 09[facility]46:00 Test Item Value Reference Range Interpretation Comments MAGNESIUM (test code = 8439701083) 1.9 mg/dL 1.7-2.4 Lab Interpretation (test code = Normal 54583-4) [facility] 09:46:00 Test Item Value Reference Range Interpretation Comments PHOSPHORUS (test code = 1888249434) 3.0 mg/dL 2.5-5 Lab Interpretation (test code = Normal 16805-0) [facility] [id number] 10:55:00 Test Item Value Reference Range Interpretation Comments WBC (test code = See_Comment [Automated 7790-2) message] The sy stem which generated this result transmitted reference range : 4.30 - 11.10 10*3/?L. The reference range was not used to interpret this result as normal/abnormal . RBC (test code = See_Comment L [Automated 0898) message] The sy stem which generated this [...] RDW-SD (test code = 45.4 fL 39-49.9 01588-2) RDW-CV (test code = 12.8 % 12-15.5 788-0) PLT (test code = See_Comment H [Automated 777-3) message] The sy stem which generated this result transmitted reference range : 166 - 358 10*3/ ?L. The reference r madelin was not used to interpret this result as normal/abnormal . MPV (test code = 9.7 fL 9.5-12.9 37147-2) NRBC/100 WBC (test See_Comment [Automat ed code = 1131327963) message] The system which generated this result transmitted reference range : 0.0 - 10.0 /100 WBCs. The refer ence range was not u sed to interpret th is result as normal/abnormal . NRBC x10^3 (test code <0.01 See_Comment [Auto mated = 2536247455) message] The s ystem which generated this result transmitted reference range : 10*3/?L. The reference range was not used to interpret this result as normal/abnormal . GRAN MAT (NEUT) % 42.8 % (test code = 770-8) IMM GRAN % (test code 5.50 % = 0021085028) LYMPH % (test code = 36.7 % 736-9) MONO % (test code = 11.8 % 5905-5) EOS % (test code = 2.8 % 713-8) BASO % (test code = 0.4 % 706-2) GRAN MAT x10^3(ANC) 4.35 10*3/uL 1.88-7.09 (test code = 9194718454) IMM GRAN x10^3 (test 0.56 10*3/uL 0-0.06 H code = 9563195973) LYMPH x10^3 (test code 3.74 10*3/uL 1.32-3.29 H = 731-0) MONO x10^3 (test code 1.20 10*3/uL 0.33-0.92 H = 742-7) EOS x10^3 (test code = 0.29 10*3/uL 0.03-0.39 711-2) BASO x10^3 (test code 0.04 10*3/uL 0.01-0.07 = 704-7) REACT LYMPHS (test Rare code = 4190078038) Lab Interpretation Abnormal (test code = 89708-7) [facility] METABOLIC PANEL (NA, K, CL, CO2, GLUCOSE, BUN, CREATININE, CA)2020-07-31 10:50:00 Test Item Value Reference Range Interpretation Comments NA (test code = 135 mmol/L 135-145 5983682058) K (test code = 3.8 mmol/L 3.5-5 0869682279) CL (test code = 101 mmol/L 98-108 2502270883) CO2 TOTAL (test code = 27 mmol/L 23-31 2725210706) AGAP (test code = 2-16 5495386584) BUN (test code = 2 mg/dL 7-23 L 9311603913) GLUCOSE (test code = 132 mg/dL 70-110 H 4815650897) CREATININE (test code = 0.72 mg/dL 0.5-1.04 0243747609) CALCIUM (test code = 8.4 mg/dL 8.6-10.6 L 8448677830) eGFR Calculation mL/min/1.73m2 (Non-) (test code = 2984321721) eGFR Calculation mL/min/1.73m2 () (test code = 7946260036) RAUDEL (test code = RAUDEL) Association of [...] tests). Lab Interpretation Abnormal (test code = 78550-1) [facility] 10:50:00 Test Item Value Reference Range Interpretation Comments MAGNESIUM (test code = 9769275769) 1.2 mg/dL 1.7-2.4 L Lab Interpretation (test code = Abnormal 70331-1) [facility]2020-[facility]-16 10:50:00 Test Item Value Reference Range Interpretation Comments PHOSPHORUS (test code = 0633416617) 3.8 mg/dL 2.5-5 Lab Interpretation (test code = Normal 13828-6) [facility] [id number] 15:48:00 Test Item Value Reference Range Interpretation Comments Case Report (test code Surgical Pathology ? ? = 8826487432) ?Case: [id number] ? Authorizing Provider: ?Darren Chun MD ?Collected: ? 07/25/2020 1708 ?Ordering Location: ? ? [facility] OR ? Received: ?07/26/2020 09 ? Department ? Pathologist: ? Opal, Deniz, PHD ?Specimen: ? ?ABDOMEN, ILEOCECECTOMY ? Final Diagnosis (test l3jafVKeJFNcp6dmZNZeeKL code = 8818159185) uZzEwMzNcZnRuYmpcdWMxIH gerlKeFEnop5OpU0SsBtRlW FxhbnNpXGRlZmxhbmcxMDMz YZE0erOnXLYpKRdiLJBwMNp zEh6sgCYgcFhsBvDdDVJnm7 hpfaGHbpxvvZy1i5lbCNXuR uO0uGTiURicB9tkcjYcqLDc XFHvSLt6bS56HPIiqP4vuKZ pFSxbbuRiSqJ7HMugRMTqCn X8VBMkvPQtBZAgH1ysXGVpQ DetSPRyPYwzmCKoAFE0aSxo q6I3iGJlhTRprTccAhFnPqM nTUYPl8HgVNv5qGodP7ScQN DkPaG1zTUmKHLuCUomGRBdU LHovoK7sL96IZsunrI5dIIp c2Hwg47tc883nU6phGKvBWQ 6BYKhNFUteRYcRADeZCM8XU BorSQiY3xqPGvpZJ8ppmrsX WH7QBtqUEUwtAzjSMenJELe OdNpmSQrIYWfaPpqBBzea46 9ICR6NxDeZR8qD5Qwd6Y2eF 9maXRcZGVmdGFiNzIwXGZvc d2lhCLtSFxld0JlUPV7mkM9 iEUprZXaHKBxZV27Cqywr1E lQzsaPPG2XXFsonMbq9Jbk7 cpFcEnmjUhC2upA5TsNDLhD IWlLPVaQcCcqwEbf0Zta9Sz vZUlbMy6h8myJALeUJAyiSm bp0rbRHJ7QYTbZ0L9lXOwf7 ayORceDBDhuWU8agWdAYCdr DLxY4WbqF1pBLkiZK1qxpn1 h5igEiUmWK2vbtxyc3ziRWm fFARmSJW6PbFwJEGbe9Vekh nbHtYct0AemNOdOXulO16qk 896UPKxieJuA5aewDZfakzx xPUkofmvJBycxtX6CRJtRGI sYWluXGYxXGZzMjBcbGFuZz EwMzNcaGljaFxmMVxkYmNoX IOwNFjmJ0rtIvLkVdYxFWkj PDZwVL6lF83CWUzySN3MJAF BCI0ADFUQSLFHOFMSSHARLS BUM0XQESWOPRFUE0GDNNHNF 38DDnonETOaCYFjJY5eL3MA TUVOVEFMIFNNQUxMIElOVEV TVElORSAgSVNDSEVNSUMgTk RSZe3QWODqP7eQGIRRBoFYB 76UGhTPEWfFGv2TLhUSAG4T LCBccGFyICAgICAgICBTRUN ICeBEQowuAM6pRwaVKh2CAF HaNTJXMDCPV39pAL3MBOZCE XzAVDIHS2WKKR7HA2SBFUNH RM1MLJwuQZEhVHUuLP7uR7Y XZDFRINVATr0NRlRPO62LLO YPQW3FCMmMQAesO2PDCZWNB 1NBTCBBTkQgVFJBTlNNVVJB FQWYHJ6ZQkUVMQeDJKohXYH oAAKmCT8wVl3rGUURCNWYQ5 EqP0VhNRPOKFDIQVQDR5rXW 1MgRElTRUFTRVxwYXIgICAg TD4mA5IOI9zBFMcfJXFUT9c OUyBBUkUgVklBQkxFIFxwYX MvPBXvMO8pDj0fSASKUCcNR R8FAIOSVLGMZUxSJLQUXMKy ciAgICAgLSBBUFBFTkRJWCB QJGWOKJJPSq0DOTAGKlTjyG FyXHBhclxwbGFpblxmMVxmc dOzTArigelfVPHbKVwgS3ri UkAkXAEclEnyAOrja6DyXMX rXBFqEjmydzTeYMhrCN87TV 3hBEE0VFCUROVaPP7dKN6sF DIwIFxwbGFpblxmMVxmczIw XKdhpabtVICmTHmpX3mmCbX zQZHqyRrrUFggn8VnNVTgAR ZzMjBccGFyfXtccnRmMVxzc 0OhF9FhEgUqQYfbosWwESBb JgbigarhZIHyCKB5faGyUCT rFTjeJLPrGPjzXt0wlOChtL fkLkVtWZTac9jjanMPWFvoU nQtY443PUUtNUtco4lva3Kd SJIqnSTee9H4JCBNiakphHa 9o0diLbPmAdW6nKYoNMefW6 eqbvRbeFWuQ7LduWZkeUr7v LwbJ22sa8R4FdxwO0eoZLYv FFOlN1NkFC9oVYXyOjk5XVJ 5TKK0OFQyRHXtQ7XmCB4pCF XdoMOtOSv1r9lxuJbeESDjO AI2s0qnZQhjcnM2NQ9ops2v nOi4t6afumMfXTQeOMZbyIA HKLRbV0HuhIkaCs4clPc2gB tbBimxLLU2Pwi2EM5mpb65a rh8xMbwLIQjdvthPzP8HRrx GJRckatdBAv3BJmpCAAanBW 2GSXaaKBcH9WeYJBrMX7tqo q7OXF4NWjvNNOkUyY8APArt KWzMYLvmIonKSrak310BDG8 KqDnFH8wN4Miv7N9cT3uvDA jHDOgzQWxBrZhXYHpls4yaC FpOGmuq7LuOON9yrR9lZMra DFtJRNgPM72Fufin1FjElwj BYJ9NVIwwbYhb9Sad5tnBeQ cpsMvK9trX7XyIZNeUFEwRU CzRhCcieFkv5Qnl0IguAVjd Cz1m1bsMFXzFBJugAiey3xx SHZ7BPAaJ8G9nVOtq0cuPJg hJKJjaIJ5jdP2YLBbiNAsY4 IouR7cQAPoDO3rgqf4u8uaT RQ3AMpcZHVgQzS7uvA8UKJs vNZsFFDonEasUEgjc047NNY 7AnFpZCOnz8OtK9BvaAqhW5 5aeMwnL12gODYioVbsnH6vj PcbmW9vLtNcPyMpMNkwbDpi bGFpblxmMVxmczIwXGxhbmc cGISrZEyhS5mgPcHfYFXjdB rjESzgl5VrJUPpRLXcVybvi zIwXHBhciBJIGhhdmUgcGVy r70pOXshnEDgBMBnRBhdWBV gtIhno8TwT2fnLB0bZ6OlzT HavgGnntJqYHftEQKpq5y1h CZbkOteo5GjwXVwFD19etDk RSTaTMI7XSLmw9itDY52ubq hIsEmyJ96xcSfbyKaEIUqb8 ecK4npeTLew0Hpn5ZvmuQmV Xude4IwXP2wcKTekresaOB5 DOTmkTOuleHejxA5eXscFWX fsH6ceU6efWarxN9iPyCkRo XqZNaxAI2bVIFcL3tbaCGsH OGiQDYcF6waEbKwtI7blXjb PbdlzoF9VWDwmg32 Clinical Information Crohn's 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 code = colon with complication 0740404254) [K50.119]SBO (small bowel obstruction) [K56.609] Gross Description z3eslCZdLDXcuWZsMqKzGCH (test code = nALHcm7eaPYLpsSRbBbKgEd 7745846446) NcZnRuYmpcdWMxXGRlZmYwe 8mwt986aYAhy0ksZZPnEzJ3 zLYyPBLvbARiI177HPFiIJp bu9eej9OrGSUodCCpc5F1PC HGmvampAq6sCquC49uu0C6G wujU7njLCHjYDBbQ7WxXA5y BYIpJal5NGG1HCW6TTEuTAX wF2MeLN3fVVNvnZJnEXq1k7 dauJtaNOQlIOU1u7ssXFmgb qRpSG8rlz4ehQx8x0hewmMi FGTgQICtoEPBUZEtO1JpcXa wMu9wyFg4mMmhVwcsPAQ1Za w9EQ1jex94aeh6tLrlATYqh gruUxR2NWjdNYPmanttBCx5 OSreCPCprMDhPHKwcKFyA9R uWTriII5lmlx6FwJqAW7cha dgCZqcQCFkGGV8EsXcWUQdq 9CxbgrnSaTnsm2gkf91IVL6 o1OgxOmnRJQ3OGT1HiEaTw4 nyQZmFTDtOO4mNwBzeAJqWZ Hjxq15dTahSHkwwkDqdB5lG wSuPZBtgWCgSLGoXN3xgGWs AOHaaK1jutjiLSWkZsPmhvk yDBZnsYnyjtLyYe4ixOkgLM T6SBosF1kixB1oEmB2AHfwP 4bimR2kBCb4TXwmiLM7CJQd cI0fAW7eoebdr8kdYEG3HZl pXZRpwyA1nbSjBKUrmZByM0 ZvkQ77UyDitRZtW0HquR0vD GtvWYUjbfb6OpCfDg2voUEi vTO2ICtsJvvbXGepXZQifgX vbnRccGduZGVjXHBsYWluXH BsYWluXGYwXGZzMjRccWxcc GlohJ5dRbWkXjCxXZwlJY3n JTVwY9pdqCDgWVGvSTOpR8z hKrJfjD2hzUpmBKixfjWoSE NwZWNpbWVuIEEgaXMgcmVjZ Ez5DTCaiR4yRz7wmAIgtM0w lYEwLAsaHFU8xTSnMFIvGCM nMWKlHR64V1TcukIgHFiqLQ tpsxAcRnYiYMLlFDFei23xd gofyEkzl7VcH5NyoO8qzDZx MO4sBCZscaRig9FnEG1gYXD cb37pyLvfVf34WZuuh0ApvO VudCAoNjYuOCBjbSBpbiBsZ P2dpFfewGOzhSBbCSDhacKr SQ9wzZ8qAFWfp22hJn27FE2 oGv7dKNZnIBC8rYGgMOS7bK AahUNsSKNiyAHzOLd1FTy3R kmeU45ffH2cnFGrJ3SrYNtj PR13OHRfVVkxPMBsTC1aiXZ yKSBhbmQgcHJveGltYWwgY2 OwzL8kGDBtAQVhZYMet6Uko WEzrLTlUC4dgW3zcYLikOLh YQLyHROxVPX4mlAtojJ6JSO zBSGsRMFkYQ8bonNiEKcjOi HvgvRjO4Vee0MygXPazDdmu WIsBYXncl01C0lnoLWsdIYo yxSfPD4tbZznq4q7bFU8bBO jaBQxCDDsMGWwvW3dAPVqz1 pocZHnAWQaMYPbgHB8EWsxo TCiK5mssy0lLRydPMEcSTAe uLBcIPkaIG2yNT7kEYYgebP sFS0lr0HmmIPviBPlvPn6XF IgCQTiqwIvzJDqHI9wlcZvS EncPgJybI0xizZoXZBwbgNb bnRzIHdpdGggYSBkYXJrLWJ jx5rpTFFoJXW6BW0eINMgrO Rdj2MzCFO1NFWkB0Asn6Uno PX0aJhmi24sc5AhAY6eOUJh GS4eZPbwitGeKQNdSM00lRJ zqAlmXAQzf4FypOVeuTMbKK DmjOjrw6lrMM9nMCQiILAdO DAuMSBjbSBpbiBncmVhdGVz fMVnaD7vkuPpf52nSZudX6Y 3FWCeCFKxwOywFVFhy7CwtR MilQM8oF0cEr7naSBjYb0kX QUbz53qBVUgDKBnpq0dd5x1 RXelLI80sFGmJDSyYFkbJBW ccGFyIFRoZSBhcHBlbmRpeC OvBSGiKB5iQVH2DAQvBMFgq GJzfV01ZTLyz5kyVAPhC5tv DWRiOIWgWCDfMN5ynSmcAHY nJNU1TIFiUnJrwZjsBY0pQN LhwWPcDWGpbomsg10vm6RoS XBmov9qBYO5kAGkZPMaJFKl KW8eVT78zEGdVd2eTIyjS04 sE4RujCxenx5zTGuvGDUrqY CoBSa8FNipDUMvrnpheGc6M GDzV5Gxy61iIEC1usQzQANk NMrhzMVpAJvmdJ0yOF7beEO zS8Z5QVB0gzRkD5QjGSsibJ zfYUFloL8drrJrmVJbkU3es CBkaWFtZXRlciAwLjIgLSAw BlLjR19xGINihYhdXRI7tGW sNFMkn7bsYPMdX5GaBG8hpI VyaWFsLiBXYWxsIHRoaWNrb rSwkbCiQU0jSUWqFbBcdXFd WgCeWEBsZvFlB08mJBDrxLQ en3IjhYL9bPJhHAZzI5Gcw2 7uNRDxHXRdtMCguGU1UHTai P1vWECmMERpGblnKIUsmPOi HABiB1Mxx07mW84pOIkuxIB pZJJcRTTbBnIhmk11vI5tfT GduNZ8aEEpXMIjmS2dOCZgF EFgU6XpySTdGATfEaHwwIK9 EZchC5KePCanmJLpT1cuVLX yASBbRHFsymWlvSq1BAprWW UoPVH4MSwdAT6mQWZaqQX0T Mb3SBwserTcicVlCU79HHKd ruHemDOfLZZ1OfVtBVBjLXR sqeSlqEa2XNBwXAJ4uQ6owl YjKaU1ZUakVMPhVNkdE3e2E JNmz1Sbn4ouRXLky8q3kXLg wFKjGWG2KUY8ZmJaVHFxHHC pzwDdxLk5SNYiHUN6fB7agd YkYqS7MSbkEFRszCJxlNI1N NOzf5EtsPQmcFribMb2MGZz d39vgNCzoQtqHTyljA9zISk zfPBiEMHoucUWCOK9BVBgM5 Ghy74cUF5bNZNudZTsSDi0U DHlTLmiY9y0JDDsZZRqNM2i xZVqDOdux5MbYgkaKEZxtP4 uGMGjPjx0OAhnULBfmICaf3 GdiYU4pETlTVYor0IbNHQsT 3Nqv08zBVBzHMAwcmWdtgRn MeumAQO7NEOprKcaJXOqtiu pZOFbEo9qYB4cHAHftLGyIH MXEZB5xFShkbRwVBMohmCPO QIdKY69dxjmywHEGXZfSPU0 iK5lj1nqp5OeFjBOg2Wfv2G hbnQpXHBhcn0= Embedded Images (test code = 1064292194) [facility] METABOLIC PANEL (NA, K, CL, CO2, GLUCOSE, BUN, CREATININE, CA)2020-07-30 11:29:00 Test Item Value Reference Range Interpretation Comments NA (test code = 136 mmol/L 135-145 1234836435) K (test code = 3.8 mmol/L 3.5-5 Slight 1990397865) hemolysis CL (test code = 102 mmol/L 98-108 2447992198) CO2 TOTAL (test code 25 mmol/L 23-31 = 5192833720) AGAP (test code = 2-16 7859986420) BUN (test code = 2 mg/dL 7-23 L Slight 2752828531) hemolysis GLUCOSE (test code = 182 mg/dL 70-110 H 1709432333) CREATININE (test code 0.68 mg/dL 0.5-1.04 = 4405929821) CALCIUM (test code = 9.0 mg/dL 8.6-10.6 0892324532) eGFR Calculation mL/min/1.73m2 (Non-) (test code = 0444054046) eGFR Calculation mL/min/1.73m2 () (test code = 8223053475) RAUDEL (test code = RAUDEL) Association of [...] tests). Lab Interpretation Abnormal (test code = 80228-3) [facility] 11:29:00 Test Item Value Reference Range Interpretation Comments MAGNESIUM (test code = 5478203611) 1.4 mg/dL 1.7-2.4 L Lab Interpretation (test code = Abnormal 88878-3) [facility] 11:29:00 Test Item Value Reference Range Interpretation Comments PHOSPHORUS (test code = 1671150567) 3.6 mg/dL 2.5-5 Lab Interpretation (test code = Normal 00156-4) [facility]XR [id number] 14:01:19EXAM: XR KUB 07/29/2020 4:42 AM. INDICATION: [...] (no call needed tothe referring александр ervin). Shahriar Caban MD., have reviewed this study and agree with theabove report.Nmmb,Radiant Results Inft User - 07/29/2020 9:02 AM [...] minor modifications (no call needed tothe referring physician).IShahriar MD., have reviewed this study and agree with theabove report.[facility] (NA, K, CL, CO2, GLUCOSE, BUN, CREATININE, CA)2020-07-29 12:26:00 Test Item Value Reference Range Interpretation Comments NA (test code = 137 mmol/L 135-145 8737277628) K (test code = 3.4 mmol/L 3.5-5 L 4111108398) CL (test code = 102 mmol/L 98-108 7803991202) CO2 TOTAL (test code = 31 mmol/L 23-31 4213077517) AGAP (test code = 2-16 7617547350) BUN (test code = 3 mg/dL 7-23 L 5417838442) GLUCOSE (test code = 118 mg/dL 70-110 H 5069816840) CREATININE (test code = 0.81 mg/dL 0.5-1.04 9000492958) CALCIUM (test code = 9.4 mg/dL 8.6-10.6 5285711908) eGFR Calculation mL/min/1.73m2 (Non-) (test code = 5905282896) eGFR Calculation mL/min/1.73m2 () (test code = 2628975058) RAUDEL (test code = RAUDEL) Association of [...] tests). Lab Interpretation Abnormal (test code = 99270-2) [facility]2020-[facility]-14 11:05:00 Test Item Value Reference Range Interpretation Comments Fibrinogen (test code = 1089 mg/dL 167-453 H 3245262252) Lab Interpretation (test code = Abnormal 45662-3) [facility]aPTT2020-09-14 10:58:00 Test Item Value Reference Range Interpretation Comments APTT Patient (test code = See_Comment [ Automated message] 3173-2) The system [employer] generated this result transmitted ref erence range: 26 - 36 Seconds. The re ference range was not u sed to interpret this result as normal/abnor mal. Lab Interpretation (test Normal code = 42933-9) [facility] HospitalPROTHROMBIN TIME / [id number] 10:58:00 Test Item Value Reference Range Interpretation Comments PROTIME PATIENT (test See_Comment [Auto mated message] code = 5964-2) The system [employer] generated this result transmitted ref erence range: 10.1 - 1 2.6 Seconds. The re ference range was not u sed to interpret this result as normal/abnor mal. INR (test code = 6301-6) Nor mal INR <1.1; Warfarin Therap eutic range 2.0 to 3. 0 or 2.5 to 3.5, dep ending upon the indica tions. Lab Interpretation (test Normal code = 75898-4) [facility] HospitalCBC WITHOUT [id number] 10:54:00 Test Item Value Reference Range Interpretation Comments WBC (test code = 6690-2) See_Comment [A utomated message] The system [employer] generated this result transmit carl reference range : 4.30 - 11.10 10*3/?L. The reference range was not used to interpret this result as normal/abnormal . RBC (test code = 789-8) See_Comment L [Au tomated message] The system [employer] generated this result transmit carl reference [...] 777-3) See_Comment [Au tomated message] The system [employer] generated this result transmit carl reference range : 166 - 358 10*3/?L. The reference range was not used to interpret this result as normal/abnormal . MPV (test code = 10.0 fL 9.5-12.9 58487-4) RDW-CV (test code = 12.0 % 12-15.5 788-0) RDW-SD (test code = 43.2 fL 39-49.9 41034-6) NRBC x10^3 (test code = <0.01 See_Comment [Au tomated message] 9306345918) The system [employer] generated this result transmit carl reference range : 10*3/?L. The reference range was not used to interpret this result as normal/abnormal . NRBC/100 WBC (test code See_Comment [Au tomated message] = 1086423363) The system [employer] generated this result transmit carl reference range : 0.0 - 10.0 /100 WBC s. The reference r madelin was not used to interpret this result as normal/abnormal . IPF % (test code = 8807571673) Lab Interpretation (test Abnormal code = 54372-2) [id number] 22:01:00 Test Item Value Reference Range Interpretation Comments Blood Culture-Aerobic No organisms No growth Previo us (test code = 34552-0) isolated prelim inary verified result was Culture [...] Culture-Anaerobic isolated preliminar y (test code = 97359-0) verifi ed result was Culture In Progress [...] CDT Lab Interpretation Normal (test code = 67334-9) [facility] [id number] 22:01:00 Test Item Value Reference Range Interpretation Comments Blood Culture-Aerobic No organisms No growth Previo us (test code = 31577-3) isolated prelim inary verified result was Culture [...] Culture-Anaerobic isolated preliminar y (test code = 59460-9) verifi ed result was Culture In Progress [...] CDT Lab Interpretation Normal (test code = 93641-9) [facility] (NA, K, CL, CO2, GLUCOSE, BUN, CREATININE, CA)2020-07-28 12:34:00 Test Item Value Reference Range Interpretation Comments NA (test code = 135 mmol/L 135-145 3008120630) K (test code = 3.6 mmol/L 3.5-5 2721922303) CL (test code = 105 mmol/L 98-108 3397062819) CO2 TOTAL (test code = 24 mmol/L 23-31 1910213206) AGAP (test code = 2-16 4046575357) BUN (test code = 3 mg/dL 7-23 L 1905660324) GLUCOSE (test code = 132 mg/dL 70-110 H 0152369039) CREATININE (test code = 0.68 mg/dL 0.5-1.04 9998743478) CALCIUM (test code = 8.6 mg/dL 8.6-10.6 8262115755) eGFR Calculation mL/min/1.73m2 (Non-) (test code = 0042212723) eGFR Calculation mL/min/1.73m2 () (test code = 6877162806) RAUDEL (test code = RAUDEL) Association of [...] tests). Lab Interpretation Abnormal (test code = 05565-7) [facility] WITHOUT [id number] 10:46:00 Test Item Value Reference Range Interpretation Comments WBC (test code = 6690-2) See_Comment [A utomated message] The system [employer] generated this result transmit carl reference range : 4.30 - 11.10 10*3/?L. The reference range was not used to interpret this result as normal/abnormal . RBC (test code = 789-8) See_Comment L [Au tomated message] The system [employer] generated this result transmit carl reference [...] 777-3) See_Comment [Au tomated message] The system [facility] [employer] generated this result transmit carl reference range : 166 - 358 10*3/?L. The reference range was not used to interpret this result as normal/abnormal . MPV (test code = 10.0 fL 9.5-12.9 82242-4) RDW-CV (test code = 12.0 % 12-15.5 788-0) RDW-SD (test code = 42.5 fL 39-49.9 39596-0) NRBC x10^3 (test code = <0.01 See_Comment [Au tomated message] 4029508615) The system [facility] [employer] generated this result transmit carl reference range : 10*3/?L. The reference range was not used to interpret this result as normal/abnormal . NRBC/100 WBC (test code See_Comment [Au tomated message] = 4715208073) The system [facility] generated this result transmit carl reference range : 0.0 - 10.0 /100 WBC s. The reference r madelin was not used to interpret this result as normal/abnormal . IPF % (test code = 6715608631) Lab Interpretation (test Abnormal code = 44759-2) [facility] (NA, K, CL, CO2, GLUCOSE, BUN, CREATININE, CA)2020-07-27 11:40:00 Test Item Value Reference Range Interpretation Comments NA (test code = 134 mmol/L 135-145 L 5355342424) K (test code = 3.7 mmol/L 3.5-5 5606291312) CL (test code = 104 mmol/L 98-108 8087012689) CO2 TOTAL (test code = 29 mmol/L 23-31 8470894402) AGAP (test code = 2-16 L 2171502576) BUN (test code = 7 mg/dL 7-23 7860057759) GLUCOSE (test code = 169 mg/dL 70-110 H 7511431543) CREATININE (test code = 0.63 mg/dL 0.5-1.04 8230568037) CALCIUM (test code = 8.3 mg/dL 8.6-10.6 L 2305176320) eGFR Calculation mL/min/1.73m2 (Non-) (test code = 5899662959) eGFR Calculation mL/min/1.73m2 () (test code = 4642828361) RAUDEL (test code = RAUDEL) Association of [...] tests). Lab Interpretation Abnormal (test code = 45492-4) [facility] WITHOUT [id number] 11:18:00 Test Item Value Reference Range Interpretation Comments WBC (test code = 6690-2) See_Comment H [A utomated message] The system [facility] generated this result transmit carl reference range : 4.30 - 11.10 10*3/?L. The reference range was not used to interpret this result as normal/abnormal . RBC (test code = 789-8) See_Comment L [Au tomated message] The system [facility] generated this result transmit carl reference range [...] 777-3) See_Comment [Au tomated message] The system [facility] generated this result transmit carl reference range : 166 - 358 10*3/?L. The reference range was not used to interpret this result as normal/abnormal . MPV (test code = 10.8 fL 9.5-12.9 58769-8) RDW-CV (test code = 11.9 % 12-15.5 L 788-0) RDW-SD (test code = 43.5 fL 39-49.9 35606-3) NRBC x10^3 (test code = <0.01 See_Comment [Au tomated message] 0045115148) The system [facility] generated this result transmit carl reference range : 10*3/?L. The reference range was not used to interpret this result as normal/abnormal . NRBC/100 WBC (test code See_Comment [Au tomated message] = 3783573972) The system [facility] generated this result transmit carl reference range : 0.0 - 10.0 /100 WBC s. The reference r madelin was not used to interpret this result as normal/abnormal . IPF % (test code = 2620088212) Lab Interpretation (test Abnormal code = 82893-1) [facility] METABOLIC PANEL (NA, K, CL, CO2, GLUCOSE, BUN, CREATININE, CA)2020-07-26 09:39:00 Test Item Value Reference Range Interpretation Comments NA (test code = 136 mmol/L 135-145 1661492707) K (test code = 3.9 mmol/L 3.5-5 7556024660) CL (test code = 104 mmol/L 98-108 3717926039) CO2 TOTAL (test code = 28 mmol/L 23-31 2047594525) AGAP (test code = 2-16 6396249055) BUN (test code = 11 mg/dL 7-23 1618090034) GLUCOSE (test code = 136 mg/dL 70-110 H 9887304874) CREATININE (test code = 0.84 mg/dL 0.5-1.04 3486513145) CALCIUM (test code = 8.2 mg/dL 8.6-10.6 L 4220389631) eGFR Calculation mL/min/1.73m2 (Non-) (test code = 0022884551) eGFR Calculation mL/min/1.73m2 () (test code = 0375192746) RAUDEL (test code = RAUDEL) Association of [...] tests). Lab Interpretation Abnormal (test code = 00633-4) [facility] WITHOUT LQQP8075-03-03 08:44:00 Test Item Value Reference Range Interpretation Comments WBC (test code = 6690-2) See_Comment [A utomated message] The system [employer] generated this result transmit carl reference range : 4.30 - 11.10 10*3/?L. The reference range was not used to interpret this result as normal/abnormal . RBC (test code = 789-8) See_Comment L [Au tomated message] The system [employer] generated this result transmit carl reference [...] See_Comment L [Au tomated message] The system [employer] generated this result transmit carl reference range : 166 - 358 10*3/?L. The reference range was not used to interpret this result as normal/abnormal . MPV (test code = 11.0 fL 9.5-12.9 43393-1) RDW-CV (test code = 11.8 % 12-15.5 L 788-0) RDW-SD (test code = 42.4 fL 39-49.9 18777-4) NRBC x10^3 (test code = <0.01 See_Comment [Au tomated message] 2730831792) The system [employer] generated this result transmit carl reference range : 10*3/?L. The reference range was not used to interpret this result as normal/abnormal . NRBC/100 WBC (test code See_Comment [Au tomated message] = 4084116483) The system [employer] generated this result transmit carl reference range : 0.0 - 10.0 /100 WBC s. The reference r madelin was not used to interpret this result as normal/abnormal . IPF % (test code = 6589642702) Lab Interpretation (test Abnormal code = 49328-0) [facility] METABOLIC PANEL (NA, K, CL, CO2, GLUCOSE, BUN, CREATININE, CA)2020-07-26 00:48:00 Test Item Value Reference Range Interpretation Comments NA (test code = 137 mmol/L 135-145 9889014515) K (test code = 4.5 mmol/L 3.5-5 3700340891) CL (test code = 102 mmol/L 98-108 3544570835) CO2 TOTAL (test code = 28 mmol/L 23-31 3459742127) AGAP (test code = 2-16 3586395199) BUN (test code = 13 mg/dL 7-23 6934627342) GLUCOSE (test code = 165 mg/dL 70-110 H 6192213959) CREATININE (test code = 0.92 mg/dL 0.5-1.04 7594721337) CALCIUM (test code = 8.5 mg/dL 8.6-10.6 L 1110645062) eGFR Calculation mL/min/1.73m2 (Non-) (test code = 3468903181) eGFR Calculation mL/min/1.73m2 () (test code = 4798026181) RAUDEL (test code = RAUDEL) Association of [...] tests). Lab Interpretation Abnormal (test code = 48702-6) [facility] 00[facility]:00 Test Item Value Reference Range Interpretation Comments MAGNESIUM (test code = 3063190855) 1.5 mg/dL 1.7-2.4 L Lab Interpretation (test code = Abnormal 21395-6) [facility] HospitalPROT[facility] / [id number] 00:29:00 Test Item Value Reference Range Interpretation Comments PROTIME PATIENT (test See_Comment H [Auto mated message] code = 5964-2) The system [employer] generated this result transmitted ref erence range: 10.1 - 1 2.6 Seconds. The reference range was not used to int erpret this result as normal/abnormal . INR (test code = 6301-6) Nor mal INR <1.1; Warfarin Therap eutic range 2.0 to 3. 0 or 2.5 to 3.5, dep ending upon the indica tions. Lab Interpretation (test Abnormal code = 99413-1) [facility]aPTT2020-09-11 00:29:00 Test Item Value Reference Range Interpretation Comments APTT Patient (test code = See_Comment [ Automated message] 3173-2) The system [employer] generated this result transmitted ref erence range: 26 - 36 Seconds. The re ference range was not u sed to interpret this result as normal/abnor mal. Lab Interpretation (test Normal code = 23402-0) [facility] WITHOUT [id number] 00:24:00 Test Item Value Reference Range Interpretation Comments WBC (test code = 6690-2) See_Comment H [A utomated message] The system [employer] generated this result transmit carl reference range : 4.30 - 11.10 10*3/?L. The reference range was not used to interpret this result as normal/abnormal . RBC (test code = 789-8) See_Comment L [Au tomated message] The system [employer] generated this result transmit carl reference [...] 777-3) See_Comment [Au tomated message] The system [employer] generated this result transmit carl reference range : 166 - 358 10*3/?L. The reference range was not used to interpret this result as normal/abnormal . MPV (test code = 10.8 fL 9.5-12.9 04904-1) RDW-CV (test code = 12.0 % 12-15.5 788-0) RDW-SD (test code = 44.0 fL 39-49.9 81693-1) NRBC x10^3 (test code = <0.01 See_Comment [Au tomated message] 8035097555) The system [employer] generated this result transmit carl reference range : 10*3/?L. The reference range was not used to interpret this result as normal/abnormal . NRBC/100 WBC (test code See_Comment [Au tomated message] = 5641602002) The system [facility] generated this result transmit carl reference range : 0.0 - 10.0 /100 WBC s. The reference r madelin was not used to interpret this result as normal/abnormal . IPF % (test code = 6148242498) Lab Interpretation (test Abnormal code = 89941-0) [facility] (NA, K, CL, CO2, GLUCOSE, BUN, CREATININE, CA)2020-07-25 12:05:00 Test Item Value Reference Range Interpretation Comments NA (test code = 137 mmol/L 135-145 3243637735) K (test code = 4.0 mmol/L 3.5-5 0858355939) CL (test code = 104 mmol/L 98-108 7636493022) CO2 TOTAL (test code = 28 mmol/L 23-31 2705428813) AGAP (test code = 2-16 3351055395) BUN (test code = 13 mg/dL 7-23 8420394175) GLUCOSE (test code = 207 mg/dL 70-110 H 1327646534) CREATININE (test code = 0.79 mg/dL 0.5-1.04 1568905270) CALCIUM (test code = 8.5 mg/dL 8.6-10.6 L 4005650792) eGFR Calculation mL/min/1.73m2 (Non-) (test code = 6289692946) eGFR Calculation mL/min/1.73m2 () (test code = 9254848893) RAUDEL (test code = RAUDEL) Association of [...] tests). Lab Interpretation Abnormal (test code = 00006-4) [facility] WITHOUT [id number] 12:02:00 Test Item Value Reference Range Interpretation Comments WBC (test code = 6690-2) See_Comment H [A utomated message] The system [employer] generated this result transmit carl reference range : 4.30 - 11.10 10*3/?L. The reference range was not used to interpret this result as normal/abnormal . RBC (test code = 789-8) See_Comment L [Au tomated message] The system [employer] generated this result transmit carl reference [...] 777-3) See_Comment [Au tomated message] The system [employer] generated this result transmit carl reference range : 166 - 358 10*3/?L. The reference range was not used to interpret this result as normal/abnormal . MPV (test code = 10.9 fL 9.5-12.9 70398-2) RDW-CV (test code = 12.1 % 12-15.5 788-0) RDW-SD (test code = 43.3 fL 39-49.9 27758-9) NRBC x10^3 (test code = <0.01 See_Comment [Au tomated message] 4649832971) The system [employer] generated this result transmit carl reference range : 10*3/?L. The reference range was not used to interpret this result as normal/abnormal . NRBC/100 WBC (test code See_Comment [Au tomated message] = 5538512869) The system [employer] generated this result transmit carl reference range : 0.0 - 10.0 /100 WBC s. The reference r madelin was not used to interpret this result as normal/abnormal . IPF % (test code = 9440925959) Lab Interpretation (test Abnormal code = 91825-8) [facility] HospitalABORH [id number] 08:01:35 Test Item Value Reference Range Interpretation Comments ABO & RH (test code A Positive Performe d at [facility] = 20) Laboratory Serv [facility] s [address]Scon Free: [phone] A No. [id number] [facility] HospitalType and Screen - ONCE [id number] 05:04:45 Test Item Value Reference Range Interpretation Comments ABO & RH (test code A POSITIVE Performe d at [facility] = 20) Laboratory Serv [facility] [address] [place] [address] s [address]Ndqi Free: [phone] A No. [id number] IAT (test code = Negative Performed a t [facility] 1185) Laboratory [facility] s [address]Pmoo Free: [phone] A No. [id number] [facility] HospitalXR ABDOMEN 1 [id number] 13:39:15EXAM: XR ABDOMEN 1 07/24/2020 1:46 AM. INDICATION: 44 years-old Female, [...] reviewed this study and agree with theabove report.[facility] (NA, K, CL, CO2, GLUCOSE, BUN, CREATININE, CA)2020-07-24 08:29:00 Test Item Value Reference Range Interpretation Comments NA (test code = 137 mmol/L 135-145 5431725206) K (test code = 4.1 mmol/L 3.5-5 Slight 0852561465) hemolysis CL (test code = 102 mmol/L 98-108 6962543414) CO2 TOTAL (test code 24 mmol/L 23-31 = 3564508191) AGAP (test code = 2-16 7839033986) BUN (test code = 19 mg/dL 7-23 Slight 8469753810) hemolysis GLUCOSE (test code = 170 mg/dL 70-110 H 8346979077) CREATININE (test code 0.93 mg/dL 0.5-1.04 = 1034796375) CALCIUM (test code = 8.9 mg/dL 8.6-10.6 9078377340) eGFR Calculation mL/min/1.73m2 (Non-) (test code = 6159133194) eGFR Calculation mL/min/1.73m2 () (test code = 0721471931) RAUDEL (test code = RAUDEL) Association of [...] tests). Lab Interpretation Abnormal (test code = 74090-3) [facility] WITHOUT [id number] 08:27:00 Test Item Value Reference Range Interpretation Comments WBC (test code = See_Comment H [Automated message] 6690-2) The system [employer] generated this result transmitted ref erence range: 4.30 - 1 1.10 10*3/?L. The reference range was not used to int erpret this result as normal/abnormal . RBC (test code = 789-8) See_Comment [Au tomated message] The system [employer] generated this result transmitted ref erence range: [...] 777-3) See_Comment [Au tomated message] The system [employer] generated this result transmitted ref erence range: 166 - 35 8 10*3/?L. The reference range was not used to int erpret this result as normal/abnormal . MPV (test code = 11.0 fL 9.5-12.9 58383-4) RDW-CV (test code = 12.0 % 12-15.5 788-0) RDW-SD (test code = 41.5 fL 39-49.9 09845-8) NRBC x10^3 (test code = <0.01 See_Comment [Au tomated message] 1014118032) The system [employer] generated this result transmitted ref erence range: 10*3/?L. The reference range was not used to int erpret this result as normal/abnormal . NRBC/100 WBC (test code See_Comment [Au tomated message] = 6824501316) The system [employer] generated this result transmitted ref erence range: 0.0 - 10 .0 /100 WBCs. The reference range was not used to int erpret this result as normal/abnormal . IPF % (test code = 5.7 % 1.3-7.7 Platelet count 5930848217) measured by fluorescence me thod. Lab Interpretation Abnormal (test code = 60655-1) [facility] HospitalCOVID-19 (ID NOW RAPID TESTING)2020-07-24 01:08:00 Test Item Value Reference Range Interpretation Comments SARS-CoV-2 Rapid ID NOW Not Detected Not Detected (test code = 70185-6) RAUDEL (test code = RAUDEL) ID NOW COVID-19 Assay is an isothermal nucleic acid amplification test intended for the qualitative detection of nucleic acid from SARS-CoV-2 viral RNA in nasopharyngeal ([employer]ENN[employer]) specimens. It is used under Emergency Use [...] indicated. Lab Interpretation Normal (test code = 07422-3) [facility] HospitalLactic Acid Whole [id number] 00:34:00 Test Item Value Reference Range Interpretation Comments LACTIC ACID (test code = 3.03 mmol/L 0392431717) [facility] HospitalLactic Acid Whole [id number] 21:59:00 Test Item Value Reference Range Interpretation Comments LACTIC ACID (test code = 2.30 mmol/L 2736233824) [facility] HospitalCT ABDOMEN PELVIS W [id number] 21:22:06CT Abdomen and Pelvis with intravenous contrast. [...] however, findings are not suggestive ofacute appendicitis. [facility], Radiant Results Inft User - 07/23/2020 4:23 [...] visualized, however, findings are not suggestive ofacute appendicitis.[facility] HospitalBasi Metabolic Panel (NA, K, CL, CO2, GLUCOSE, BUN, CREATININE, CA)2020-07-23 20:11:00 Test Item Value Reference Range Interpretation Comments NA (test code = 137 mmol/L 135-145 1851627783) K (test code = 3.3 mmol/L 3.5-5 L 3229992560) CL (test code = 97 mmol/L 98-108 L 8728330735) CO2 TOTAL (test code = 25 mmol/L 23-31 6638255231) AGAP (test code = 2-16 4623829823) BUN (test code = 18 mg/dL 7-23 7267847035) GLUCOSE (test code = 236 mg/dL 70-110 H 6814798648) CREATININE (test code = 0.94 mg/dL 0.5-1.04 6502298723) CALCIUM (test code = 10.4 mg/dL 8.6-10.6 4302483745) eGFR Calculation mL/min/1.73m2 (Non-) (test code = 0034134305) eGFR Calculation mL/min/1.73m2 () (test code = 5272565004) RAUDEL (test code = RAUDEL) Association of [...] tests). Lab Interpretation Abnormal (test code = 32289-8) [facility] HospitalHepatic Function Panel (ALB, T.PRO, BILI T, BU/BC, ALT, AST, ALK PHOS)2020-07-23 20:11:00 Test Item Value Reference Range Interpretation Comments TOTAL BILI (test code = 5436954167) 1.0 mg/dL 0.1-1.1 BILI UNCON (test code = 5103975717) 1.0 mg/dL 0.1-1.1 BILI CONJ (test code = 3698455964) 0.0 mg/dL 0-0.3 T PROTEIN (test code = 7010186234) 8.9 g/dL 6.3-8.2 H ALBUMIN (test code = 0297080469) 4.7 g/dL 3.5-5 ALK PHOS (test code = 9646668656) 77 U/L 34-122 ALTv (test code = 1742-6) 19 U/L 5-35 AST(SGOT) (test code = 3933695944) 24 U/L 13-40 Lab Interpretation (test code = Abnormal 66552-4) [facility] HospitalLipase [id number] 20:11:00 Test Item Value Reference Range Interpretation Comments LIPASE (test code = 9322508561) 26 U/L 0-220 Lab Interpretation (test code = Normal 69136-8) [facility] HospitalCB with Dsjuzoxnrswk1909-38-17 19:48:00 Test Item Value Reference Range Interpretation [...] RDW-SD (test code = 39.7 fL 39-49.9 13263-1) RDW-CV (test code = 11.5 % 12-15.5 L 788-0) PLT (test code = See_Comment [Automated 777-3) message] The system which generated this result transmit carl reference range : 166 - 358 10*3/ ?L. The reference range was not u sed to interpret th is result as normal/abnormal . MPV (test code = 10.4 fL 9.5-12.9 04283-0) NRBC/100 WBC (test See_Comment [Automat ed code = 1886854473) message] The system which generated this result transmit carl reference range : 0.0 - 10.0 /100 WBCs. The reference range was not used to interpret this result as normal/abnormal . NRBC x10^3 (test code <0.01 See_Comment [Auto mated = 8967212594) message] The system which generated this result transmit carl reference range : 10*3/?L. The reference range was not used to interpret this result as normal/abnormal . GRAN MAT (NEUT) % 90.3 % (test code = 770-8) IMM GRAN % (test code 0.50 % = 6230494953) LYMPH % (test code = 5.4 % 736-9) MONO % (test code = 3.7 % 5905-5) EOS % (test code = 0.0 % 713-8) BASO % (test code = 0.1 % 706-2) GRAN MAT x10^3(ANC) 12.67 10*3/uL 1.88-7.09 H (test code = 7437058529) IMM GRAN x10^3 (test 0.07 10*3/uL 0-0.06 H code = 2701892917) LYMPH x10^3 (test code 0.76 10*3/uL 1.32-3.29 L = 731-0) MONO x10^3 (test code 0.52 10*3/uL 0.33-0.92 = 742-7) EOS x10^3 (test code = <0.03 0.03-0.39 L 711-2) BASO x10^3 (test code <0.03 0.01-0.07 = 704-7) Lab Interpretation Abnormal (test code = 72466-6) [facility] HospitalUrinalysis2020-09-08 19:37:00 Test Item Value Reference Range Interpretation Comments APPEARANCE (test code = Hazy Clear A 0808572162) COLOR (test code = Kathleen Yellow A 2420327175) PH (test code = 4.8-8.0 6106134330) SP GRAVITY (test code = 1.003-1.030 H 3939824164) GLU U QUAL (test code = 50 mg/dL Normal A 3905147181) BLOOD (test code = Negative Negative 6859683593) KETONES (test code = 80 mg/dL Negative A 3459611833) PROTEIN (test code = 100 mg/dL Negative A 2887-8) UROBILIN (test code = Normal Normal 9023086585) BILIRUBIN (test code = Negative Negative 3025294746) NITRITE (test code = Negative Negative 2658095726) LEUK CHELY (test code = Negative Negative 0485591982) RBC/HPF (test code = See_Comment [Autom ated message] 5008518811) The system [employer] generated this result transmit carl reference range : 0 - 3 HPF. The refe rence range was not u sed to interpret th is result as normal/abnormal . WBC/HPF (test code = See_Comment [Autom ated message] 3038911448) The system [employer] generated this result transmit carl reference range : 0 - 5 HPF. The refe rence range was not u sed to interpret th is result as normal/abnormal . BACTERIA (test code = Few Negative A 1845686796) MUCOUS (test code = Marked Negative LPF A 4548732916) SQ EPITH (test code = HPF 9267391003) Lab Interpretation (test Abnormal code = 69108-1) [facility] HospitalCT ABDOMEN PELVIS W [id number] 18:53:08CT Abdomen and Pelvis with intravenous contrast. [...] acute intra- abdominal or intrapelvic pathology detected. [facility], Radiant Results Inft User - 06/15/2019 1:53 [...] of the liver near falciform ligament, unchanged sinceuary 2018 study. No other liver lesions. No [...] Unremarkable.CONCLUSION: No acute intra-abdominal or intrapelvic pathology detected.[facility] HospitalBasaint [facility]ose[facility]rea Metabolic Panel (NA, K, CL, CO2, GLUCOSE, BUN, CREATININE, CA)2019-06-15 18:17:00 Test Item Value Reference Range Interpretation Comments NA (test code = 140 mmol/L 135-145 9141669795) K (test code = 3.5 mmol/L 3.5-5 5715219566) CL (test code = 105 mmol/L 98-108 0854544956) CO2 TOTAL (test code = 25 mmol/L 23-31 6593963066) AGAP (test code = 2-16 5920716486) BUN (test code = 10 mg/dL 7-23 0172610789) GLUCOSE (test code = 162 mg/dL 70-110 H 8424039535) CREATININE (test code = 0.81 mg/dL 0.5-1.04 7469192311) CALCIUM (test code = 8.7 mg/dL 8.6-10.6 8043568138) eGFR Calculation mL/min/1.73m2 (Non-) (test code = 4805367172) eGFR Calculation mL/min/1.73m2 () (test code = 8413373963) RAUDEL (test code = RAUDEL) Association of [...] tests). Lab Interpretation Abnormal (test code = 61225-6) [facility] HospitalHepatic Function Panel (ALB, T.PRO, BILI T, BU/BC, ALT, AST, ALK PHOS)2019-06-15 18:17:00 Test Item Value Reference Range Interpretation Comments TOTAL BILI (test code = 2062338868) 0.7 mg/dL 0.1-1.1 BILI UNCON (test code = 1800411208) 0.6 mg/dL 0.1-1.1 BILI CONJ (test code = 8579718228) 0.0 mg/dL 0-0.3 T PROTEIN (test code = 0379264684) 7.7 g/dL 6.3-8.2 ALBUMIN (test code = 1942798986) 4.2 g/dL 3.5-5 ALK PHOS (test code = 4278255067) 59 U/L 34-122 ALT(SGPT) (test code = 2344549874) 16 U/L 9-51 AST(SGOT) (test code = 3300530925) 20 U/L 13-40 Lab Interpretation (test code = Normal 49661-4) [facility] HospitalLipase Rtnjj9043-06-90 18:17:00 Test Item Value Reference Range Interpretation Comments LIPASE (test code = 0509961978) 48 U/L 0-220 Lab Interpretation (test code = Normal 23825-0) [facility] HospitalUrinalysis2019-08-01 18:06:00 Test Item Value Reference Range Interpretation Comments APPEARANCE (test code Slightly Hazy Clear A = 9708665259) COLOR (test code = Yellow Yellow 9052678594) PH (test code = 4.8-8.0 4833233866) SP GRAVITY (test code >=1.030 1.003-1.030 = 8115703062) GLU U QUAL (test code Negative Negative = 6866707868) BLOOD (test code = Negative Negative 4149929236) KETONES (test code = Negative Negative 3280389896) PROTEIN (test code = Negative Negative 2887-8) UROBILIN (test code = 0.2 mg/dL See_Comment [Auto mated 3252076587) message] The system which generated this result transmit carl reference range : 0-1.0 mg/dL. Th e reference range was not used to interpret this result as normal/abnormal . BILIRUBIN (test code = Negative Negative 9252421390) NITRITE (test code = Negative Negative 4762341694) LEUK CHELY (test code Negative Negative = 5110130805) RBC/HPF (test code = See_Comment [Autom ated 5324832347) message] The system which generated this result transmit carl reference range : 0 - 3 HPF. The reference range was not used to interpret this result as normal/abnormal . WBC/HPF (test code = See_Comment [Autom ated 1016977264) message] The system which generated this result transmit carl reference range : 0 - 5 HPF. The reference range was not used to interpret this result as normal/abnormal . BACTERIA (test code = Moderate Negative A 2254642384) MUCOUS (test code = Moderate Negative LPF A 6848958419) SQ EPITH (test code = HPF 1309485995) CA OXALATE (test code See_Comment H [Auto mated = 1821406821) message] The system which generated this result transmit carl reference range : <=1 HPF. The reference range was not used to interpret this result as normal/abnormal . Lab Interpretation Abnormal (test code = 32836-4) [facility] HospitalLactic Acid Whole [id number] 17:57:00 Test Item Value Reference Range Interpretation Comments LACTIC ACID (test code = 1.94 mmol/L 0.5-2.2 7235542646) Lab Interpretation (test code = Normal 44387-4) [facility] HospitalCB WITH [id number] 17:56:00 Test Item Value Reference Range Interpretation Comments WBC (test code = See_Comment [Automated 8290-2) message] The sy stem which generated this result transmitted reference range : 4.30 - 11.10 10*3/?L. The reference range was not used to interpret this result as normal/abnormal . RBC (test code = See_Comment [Automated 939-8) message] The sy stem which generated this [...] RDW-SD (test code = 41.2 fL 39-49.9 56975-9) RDW-CV (test code = 11.7 % 12-15.5 L 788-0) PLT (test code = See_Comment [Automated 777-3) message] The sy stem which generated this result transmitted reference range : 166 - 358 10*3/ ?L. The reference r madelin was not used to interpret this result as normal/abnormal . MPV (test code = 10.0 fL 9.5-12.9 15776-7) NRBC/100 WBC (test See_Comment [Automat ed code = 3454609805) message] The system which generated this result transmitted reference range : 0.0 - 10.0 /100 WBCs. The refer ence range was not u sed to interpret th is result as normal/abnormal . NRBC x10^3 (test code <0.01 See_Comment [Auto mated = 7316366955) message] The s ystem which generated this result transmitted reference range : 10*3/?L. The reference range was not used to interpret this result as normal/abnormal . GRAN MAT (NEUT) % 72.9 % (test code = 770-8) IMM GRAN % (test code 0.10 % = 9952946808) LYMPH % (test code = 21.6 % 736-9) MONO % (test code = 4.3 % 5905-5) EOS % (test code = 0.7 % 713-8) BASO % (test code = 0.4 % 706-2) GRAN MAT x10^3(ANC) 4.88 10*3/uL 1.88-7.09 (test code = 5748099720) IMM GRAN x10^3 (test <0.03 0-0.06 code = 8166745235) LYMPH x10^3 (test code 1.45 10*3/uL 1.32-3.29 = 731-0) MONO x10^3 (test code 0.29 10*3/uL 0.33-0.92 L = 742-7) EOS x10^3 (test code = 0.05 10*3/uL 0.03-0.39 711-2) BASO x10^3 (test code 0.03 10*3/uL 0.01-0.07 = 704-7) Lab Interpretation Abnormal (test code = 12967-0) [facility] HospitalPOCT Test, [id number] 17:24:00 Test Item Value Reference Range Interpretation Comments POCT PREG (test code = 1605) negative On board controls acceptable with present C Line (test code = 3574) POCT PREG LOT # (test code = 3575) [id number] POCT PREG TEST DATE (test 11/14/20 code = 3576) Lab Interpretation (test code = Normal 05652-9) [facility]"
[2022-08-11] MEDS ORDERED: DIPHENHYDRAMINE 50 MG/ML VIAL ONE ×2 (05:30→07:57)
[2022-08-11] MEDS ORDERED: NA CHLORIDE 0.9% 1,000 ML ONE (05:31)
[2022-08-11] MEDS ORDERED: HYDROMORPHONE HCL 1 MG/ML INJ ONE ×3 (05:31→10:24)
[2022-08-11] MEDS ORDERED: PROMETHAZINE INJ 25 MG/ML AMP ONE ×2 (05:32→07:58)
[2022-08-11 06:45] LABS: Absolute Lymphocytes (CBC) 2.8 K/uL (0.7-4.9); Hematocrit 37.5 % (36.0-45.0); MCV 96.7 fL (80-100); MPV 7.8 fL (7.6-11.3); RBC Red Blood Cell Count 3.88 M/uL (3.86-4.86)
[2022-08-11 07:04] LABS: Albumin 3.6 g/dL (3.4-5.0); Bilirubin Total 0.6 mg/dL (0.2-1.0); Potassium 3.8 mmol/L (3.5-5.1); Protein, Total 7.6 g/dL (6.4-8.2)
[2022-08-11] MEDS ORDERED: PANTOPRAZOLE 40 MG INJ ONE (07:57)
[2022-08-11 09:39] LABS: Urine Blood Negative (Negative); Urine Glucose Negative (Negative); Urine Protein Negative (Negative)
--- NOTE | 2022-08-11 10:08 | RAD REPORT ---
EXAM DESCRIPTION: CTAbdomen Pelvis Wo Contrast - 08/11/2022 9:45 am CLINICAL HISTORY: Abdominal pain, acute, nonlocalized COMPARISON: Abdomen Pelvis Wo Contrast dated 07/12/2022; Abdomen Pelvis W Contrast dated 2; Abdomen Pelvis W Contrast dated 11/22/2021; Abdomen Pelvis W Contrast dated 10/31/2021; Abdomen Pelvis W Contrast dated 06/15/2019 TECHNIQUE: CT of the abdomen and pelvis was performed. All CT scans are performed using dose optimization technique as appropriate and may include automated exposure control or mA/KV adjustment according to patient size. FINDINGS: Lower chest: No acute abnormality. Liver: No acute abnormality or suspicious lesions. Biliary: No biliary ductal dilatation. Stomach: No significant focal abnormality. Duodenum: No significant focal abnormality. Pancreas: No significant abnormality. Spleen: No significant abnormality. Adrenal: No suspicious lesions. Kidney/ureter: No hydronephrosis. No renal calculi. Retroperitoneum: No retroperitoneal adenopathy. Vascular: No aneurysm. Bowel: No significant focal abnormality. Appendectomy. Peritoneum: No ascites or free air. Bladder: Grossly unremarkable. Reproductive: No adnexal masses. Bones: No acute fracture. Bilateral hip degenerative changes. Other: n/a IMPRESSION: No acute intra-abdominal or pelvic finding.
[2022-08-11 10:14] LABS: Barbiturates NEGATIVE (NEGATIVE); Benzodiazepines NEGATIVE (NEGATIVE); Cocaine NEGATIVE (NEGATIVE); METHAMPHETAM NEGATIVE (NEGATIVE); Methadone NEGATIVE (NEGATIVE); Opiates NEGATIVE (NEGATIVE); Phencyclidine NEGATIVE (NEGATIVE); THC Cannibis NEGATIVE (NEGATIVE)
--- NOTE | 2022-08-11 10:15 | ER ---
Nurse's Notes [facility] Name: Jessica Stearns Age: 46 yrs Sex: Female : 1975 Arrival Date: 08/11/2022 Time: 04:56 Bed 7 Private MD: Diagnosis: Abdominal pain, Generalized;Vomiting;Crohn's disease, unspecified, without complications Presentation: 08/11 05:12 Chief complaint: Patient states: I am having a Crohns flare up, I have wounds on both jb4 my hands and now my right foot that have been getting worse. I was here 10 days ago for the same thing and it is not getting any better. Coronavirus screen: At this time, the client does not indicate any symptoms associated with coronavirus-19. Ebola Screen: No symptoms or risks identified at this time. Initial Sepsis Screen: Does the patient meet any 2 criteria? HR > 90 bpm. Yes Does the patient have a suspected source of infection? No. Patient's initial sepsis screen is negative. Risk Assessment: Do you want to hurt yourself or someone else? Patient reports no desire to harm self or others. Onset of symptoms was August 11, 2022. Transition of care: patient was not received from another setting of care. 05:12 Method Of Arrival: Wheelchair 4 05:12 Acuity: EVELIA 3 jb4 Historical: - Allergies: 05:16 Bentyl; jb4 05:16 Butalbital Compound; jb4 05:16 Demerol; jb4 05:16 Fentanyl; jb4 05:16 Ketorolac; jb4 05:16 Morphine; jb4 05:16 Reglan; jb4 05:16 Sulfa (Sulfonamide Antibiotics); jb4 05:16 Talwin; jb4 05:16 Toradol; jb4 05:16 Zofran; jb4 - PMHx: 05:16 Crohn's; gastritis; ibs; jb4 - PSHx: 05:16 Appendectomy; colon resection; Colostomy and reversal; jb4 - Immunization history:: Adult Immunizations unknown. - Social history:: Smoking status: Patient denies any tobacco usage or history of. Patient uses street drugs, marijuana. Screenin:16 Abuse screen: Denies threats or abuse. Nutritional screening: No deficits noted. jb4 Tuberculosis screening: No symptoms or risk factors identified. Fall Risk None identified. Assessment: 05:16 General: Appears in no apparent distress. uncomfortable, Behavior is. Pain: Complains 4 of pain in abdomen Pain does not radiate. Pain currently is 10 out of 10 on a pain scale. Neuro: Level of Consciousness is awake, alert, obeys commands, Oriented to person, place, time, situation. Cardiovascular: Patient's skin is warm and dry. Respiratory: Airway is patent Respiratory effort is even, unlabored, Respiratory pattern is regular, symmetrical. GI: Abdomen is flat, non-distended, Reports diarrhea, nausea, vomiting. : No signs and/or symptoms were reported regarding the genitourinary system. EENT: No signs and/or symptoms were reported regarding the EENT system. Derm: Skin is intact, Skin is dry, Skin is normal, Wound noted heel of right hand, palm of right hand, palm of left hand and arch of right foot. Musculoskeletal: Circulation, motion, and sensation intact. Range of motion: intact in all extremities. 05:45 Reassessment: Pt refusing IV placement unless ultrasound IV is used, informed pt that [facility] ED ultrasound machine is currently not working. Informed charge nurse of situation. 06:49 Reassessment: Patient appears in no apparent distress at this time. Patient and/or [facility] family updated on plan of care and expected duration. Pain level reassessed. Patient is alert, oriented x 3, equal unlabored respirations, skin warm/dry/pink. unable to obtain IV access at this time. Provider is aware. 07:22 Reassessment: Patient appears in no apparent distress at this time. No changes from vg1 previously documented assessment. Patient and/or family updated on plan of care and expected duration. Pain level reassessed. Patient is alert, oriented x 3, equal unlabored respirations, skin warm/dry/pink. 07:45 Reassessment: Received VO from Dr Sharp to administer Phenergan 6.25 mg IVP x1. vg1 08:00 Reassessment: Received VO from Dr Sharp to administer Protonix 40 mg IVP x1. vg1 09:20 Reassessment: pt completed oral contrast. vg1 10:20 Reassessment: Patient appears in no apparent distress at this time. Patient and/or vg1 family updated on plan of care and expected duration. Pain level reassessed. Patient is alert, oriented x 3, equal unlabored respirations, skin warm/dry/pink. Pt c/o ABD pain 8/10; provider notified. Received VO from Dr Sharp to administer Dilaudid 1 mg IVP x1. Vital Signs: 05:12 BP 116 / 92; Pulse 100; Resp 16; Temp 97.5(TE); Pulse Ox 100% on R/A; Pain 10/10; jb4 06:00 BP 126 / 92; Pulse 85; Resp 16; Pulse Ox 100% on R/A; jb4 07:30 BP 115 / 93; Pulse 88; Resp 16; Pulse Ox 100% on R/A; vg1 08:15 BP 127 / 83; Pulse 91; Resp 18; Pulse Ox 100% ; vg1 09:00 BP 135 / 82; Pulse 87; Resp 16; Pulse Ox 100% on R/A; vg1 ED Course: 04:56 Patient arrived in ED. bp1 04:58 Karo Prasad MD is Attending Physician. sd2 05:12 Kenton Garcia, RN is Primary Nurse. jb4 05:15 Triage completed. jb4 05:16 Arm band placed on right wrist. jb4 05:16 Patient has correct armband on for positive identification. Placed in gown. Bed in low jb4 position. Call light in reach. Side rails up X 1. Client placed on continuous cardiac and pulse oximetry monitoring. NIBP monitoring applied. 06:01 Missed attempt(s): 24 gauge in right forearm. Bleeding controlled, band aid applied, ds4 catheter tip intact. 06:29 Missed attempt(s): 24 gauge in left antecubital area. Bleeding controlled, band aid jb4 applied, catheter tip intact. Missed attempt(s): 22 gauge in right upper arm. Bleeding controlled, band aid applied, catheter tip intact. 07:24 Attending Physician role handed off by Karo Prasad MD michael 07:24 Alexis Sharp MD is Attending Physician. michael 07:45 Primary Nurse role handed off by Kenton Garcia, RN vg1 07:45 Xenia Gilbert, RN is Primary Nurse. vg1 07:46 Inserted saline lock: 18 gauge in left EJ, using aseptic technique. ,using aseptic vg1 technique. completed by Dr Sharp. 09:45 Abdomen In Process Unspecified. EDMS 10:15 Drake Leigh MD is Referral Physician. michael 10:30 No provider procedures requiring assistance completed. IV discontinued, intact, vg1 bleeding controlled, No redness/swelling at site. Pressure dressing applied. Administered Medications: 05:43 Drug: Phenergan (promethazine) 25 mg Route: IM; Site: right gluteus; ll3 07:25 Follow up: Response: No change in condition vg1 07:50 Drug: NS 0.9% 1000 ml Route: IV; Rate: 1 bolus; Site: left jugular; vg1 09:15 Follow up: IV Status: Completed infusion; IV Intake: 1000ml vg1 08:04 Drug: ProTONIX (pantoprazole) 40 mg Route: IVP; Site: left jugular; vg1 09:40 Follow up: Response: Marked relief of symptoms vg1 09:41 Follow up: Response: Marked relief of symptoms vg1 08:06 Drug: Dilaudid (HYDROmorphone) 1 mg Route: IVP; Site: left jugular; vg1 09:41 Follow up: Response: Marked relief of symptoms vg1 08:08 Drug: Benadryl (diphenhydrAMINE) 25 mg Route: IVP; Site: left jugular; vg1 09:41 Follow up: Response: No adverse reaction vg1 08:12 Drug: Phenergan (promethazine) 6.25 mg Route: IVP; Site: left jugular; vg1 09:41 Follow up: Response: Marked relief of symptoms vg1 10:20 Drug: Dilaudid (HYDROmorphone) 1 mg Route: IVP; Site: left jugular; vg1 10:56 Follow up: Response: Medication administered at discharge. vg1 Medication: 05:16 VIS not applicable for this client. jb4 Intake: 09:15 IV: 1000ml; Total: 1000ml. vg1 Outcome: 10:15 Discharge ordered by . michael 10:30 Discharged to home via wheelchair. vg1 10:30 Condition: good 10:30 Discharge instructions given to patient, Instructed on discharge instructions, follow up and referral plans. medication usage, Demonstrated understanding of instructions, follow-up care, medications, Prescriptions given X 3. 10:56 Patient left the ED. vg1 Signatures: Dispatcher [employer] EDMS Alexis Sharp MD MD cha Swanson, Donovan ds4 Kenton Garcia, RN RN jb4 Xenia Gilbert, RN RN vg1 Malgorzata Osborne Lynsea, ZARA RN ll3 Osmar, MD AHSAN Huddleston sd2
--- NOTE | 2022-08-11 10:16 | EDPHYS ---
Physician Documentation [facility] Name: Jessica Stearns Age: 46 yrs Sex: Female : 1975 Arrival Date: 08/11/2022 Time: 04:56 Bed 7 Private MD: ED Physician Alexis Sharp HPI: 08/11 05:22 This 46 yrs old Black Female presents to ER via Wheelchair with complaints of Vomiting, sd2 Abdominal Pain, Wounds on hands/feet. 05:22 46 yo F with a hx of Crohn's disease presents with CC of vomiting, diarrhea and sd2 abdominal pain. Reports seen here a week ago for same symptoms and was unable to last picker the antibiotics due to cost or keep the steroids down. Reports continued rash to bilateral hands and bottom of right foot despite using antifungal cream. Has not been able to follow up with a doctor regarding her symptoms due to lack of insurance. . Historical: - Allergies: 05:16 Bentyl; jb4 05:16 Butalbital Compound; jb4 05:16 Demerol; jb4 05:16 Fentanyl; jb4 05:16 Ketorolac; jb4 05:16 Morphine; jb4 05:16 Reglan; jb4 05:16 Sulfa (Sulfonamide Antibiotics); jb4 05:16 Talwin; jb4 05:16 Toradol; jb4 05:16 Zofran; jb4 - PMHx: 05:16 Crohn's; gastritis; ibs; jb4 - PSHx: 05:16 Appendectomy; colon resection; Colostomy and reversal; jb4 - Immunization history:: Adult Immunizations unknown. - Social history:: Smoking status: Patient denies any tobacco usage or history of. Patient uses street drugs, marijuana. ROS: 05:22 Constitutional: Negative for fever, chills, and weight loss, Eyes: Negative for injury, sd2 pain, redness, and discharge, ENT: Negative for injury, pain, and discharge, Cardiovascular: Negative for chest pain, palpitations, and edema, Respiratory: Negative for shortness of breath, cough, wheezing. MS/Extremity: Negative for injury and deformity, Skin: Negative for injury, rash, and discoloration, Neuro: Negative for headache, numbness and tingling. 05:22 Abdomen/GI: Positive for abdominal pain, nausea and vomiting, diarrhea, Negative for black/tarry stool. Exam: 05:22 Constitutional: This is a well developed, well nourished patient who is awake, alert, sd2 and in no acute distress. Head/Face: Normocephalic, atraumatic. Eyes: EOMI, normal conjunctiva bilaterally Chest/axilla: Normal chest wall appearance and motion. Nontender with no deformity. Cardiovascular: Regular rate and rhythm with a normal S1 and S2. No gallops, murmurs, or rubs. 2+ distal pulses. Respiratory: Lungs have equal breath sounds bilaterally, clear to auscultation and percussion. No rales, rhonchi or wheezes noted. No increased work of breathing, no retractions or nasal flaring. Abdomen/GI: Soft, ND, mild periumbilical tenderness without guarding or rebound Skin: Warm, dry with normal turgor. Normal color with no rashes, no lesions, and no evidence of cellulitis. MS/ Extremity: Pulses equal, no cyanosis. Neurovascular intact. Full, normal range of motion. Ambulatory without difficulty. Psych: Awake, alert, with orientation to person, place and time. Behavior, mood, and affect are within normal limits. Vital Signs: 05:12 BP 116 / 92; Pulse 100; Resp 16; Temp 97.5(TE); Pulse Ox 100% on R/A; Pain 10/10; jb4 06:00 BP 126 / 92; Pulse 85; Resp 16; Pulse Ox 100% on R/A; jb4 07:30 BP 115 / 93; Pulse 88; Resp 16; Pulse Ox 100% on R/A; vg1 08:15 BP 127 / 83; Pulse 91; Resp 18; Pulse Ox 100% ; vg1 09:00 BP 135 / 82; Pulse 87; Resp 16; Pulse Ox 100% on R/A; vg1 MDM: 05:01 Patient medically screened. sd2 05:22 Differential diagnosis: Gastritis, cholecystitis, pancreatitis, SBO, diverticulitis, sd2 kidney stone, appendicitis, UTI, dehydration, electrolyte abnormality among others. Data reviewed: vital signs, nurses notes. 06:55 Transition of care: After a detail discussion of the patient's case, care is sd2 transferred to Alexis Sharp MD. ED course: Significant difficulty with obtaining IV access as she usually attains IV access with the use of ultrasound but our ultrasound is not currently working in the ER. EJ attempt was unsuccessful but blood was able to be obtained.. 07:24 Patient medically screened. [facility] 08/11 06:12 Order name: CBC with Automated Diff; Complete Time: 07:49 EDMS 08/11 06:52 Order name: Comprehensive Metabolic Panel; Complete Time: 07:49 EDMS 08/11 06:52 Order name: Lipase; Complete Time: 07:49 EDMS 08/11 07:50 Order name: UDS [facility] 08/11 09:39 Order name: Urine Dipstick-Ancillary; Complete Time: 09:52 EDMS 08/11 09:40 Order name: Urine --Ancillary (enter results); Complete Time: 09:52 bd 08/11 09:45 Order name: Abdomen ; Complete Time: 10:14 EDMS 08/11 05:24 Order name: IV; Complete Time: 07:46 jb4 08/11 07:50 Order name: Urine Dipstick-Ancillary (obtain specimen); Complete Time: 09:40 michael 08/11 07:50 Order name: Urine Test (obtain specimen); Complete Time: 09:40 [facility] Administered Medications: 05:43 Drug: Phenergan (promethazine) 25 mg Route: IM; Site: right gluteus; ll3 07:25 Follow up: Response: No change in condition vg1 07:50 Drug: NS 0.9% 1000 ml Route: IV; Rate: 1 bolus; Site: left jugular; vg1 09:15 Follow up: IV Status: Completed infusion; IV Intake: 1000ml vg1 08:04 Drug: ProTONIX (pantoprazole) 40 mg Route: IVP; Site: left jugular; vg1 09:40 Follow up: Response: Marked relief of symptoms vg1 09:41 Follow up: Response: Marked relief of symptoms vg1 08:06 Drug: Dilaudid (HYDROmorphone) 1 mg Route: IVP; Site: left jugular; vg1 09:41 Follow up: Response: Marked relief of symptoms vg1 08:08 Drug: Benadryl (diphenhydrAMINE) 25 mg Route: IVP; Site: left jugular; vg1 09:41 Follow up: Response: No adverse reaction vg1 08:12 Drug: Phenergan (promethazine) 6.25 mg Route: IVP; Site: left jugular; vg1 09:41 Follow up: Response: Marked relief of symptoms vg1 10:20 Drug: Dilaudid (HYDROmorphone) 1 mg Route: IVP; Site: left jugular; vg1 10:56 Follow up: Response: Medication administered at discharge. vg1 Disposition Summary: 08/11/22 10:15 Discharge Ordered Location: Home michael Problem: new michael Symptoms: have improved micheal Condition: Stable michael Diagnosis - Abdominal pain, Generalized michael - Vomiting michael - Crohn's disease, unspecified, without complications michael Followup: michael - With: Private Physician - When: 2 - 3 days - Reason: Recheck today's complaints, Continuance of care, Re-evaluation by your physician Followup: michael - With: Drake Leigh MD - When: 2 - 3 days - Reason: Recheck today's complaints, Re-evaluation by your physician Discharge Instructions: - Discharge Summary Sheet michael - Abdominal Pain, Adult michael - Crohn's Disease michael - Abdominal Pain, Adult, [id number] michael - Vomiting, Adult michael Forms: - Medication Reconciliation Form michael - Thank You Letter michael - Antibiotic Education michael - Prescription Opioid Use michael Prescriptions: - Protonix 40 mg Oral Tablet - take 1 tablet by ORAL route once daily; 30 tablet; Refills: 0, Product michael Selection Permitted - Medrol (Alan) 4 mg Oral Tablets, Dose Pack - take 1 tablet by ORAL route as directed - follow package instructions; 1 michael packet; Refills: 0, Product Selection Permitted - promethazine 25 mg Oral Tablet - take 1 tablet by ORAL route every 6 hours As needed; 20 tablet; Refills: 0, michael Product Selection Permitted Signatures: Dispatcher [employer] EDAlexis Sumner MD MD cha Bryson, James RN RN jb4 Xenia Gilbert RN RN vg1 Neela Dickinson RN RN ll3 Karo Prasad MD MD sd2 Corrections: (The following items were deleted from the chart) 09:20 07:58 COMPREHENSIVE METABOLIC PANEL+C.LAB.BRZ ordered. EDMS EDMS 09:20 07:58 LIPASE+C.LAB.BRZ ordered. EDMS EDMS 09:45 07:58 CBC+H.LAB.BRZ ordered. EDMS EDMS 09:45 08:01 Abdomen Pelvis W Con+CT.RAD.BRZ ordered. EDMS EDMS
[2022-08-13 19:06] VITALS: TEMP 97.5; O2SAT 100
[2022-08-13 19:24] VITALS: BP 135/82
== END 2022-08-11 10:56 | disposition home or self-care (01) ==
LOC: ER 04:55
DX: R10.84 Generalized abdominal pain (principal); K50.90 Crohn's disease, unspecified, without complications; R11.10 Vomiting, unspecified
CPT/HCPCS: 36415; 74176; 80053; 80307; 81003; 81025; 83690; 85025; 96361; 96372; 96374; 96375; 99284; C9113; J1170; J1200; J2550; J7030

== ENCOUNTER 2022-10-29 02:02 | Emergency (ER) | payer SELFPAY ==
--- OUTSIDE RECORDS SUMMARY | 2022-10-29 02:18 | XMS REPORT | Continuity of Care Document ---
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 -acetaminop 11 Oral, Q6H, it y of hen (HYCET) 18:00: First dose [place] 7.5-325 00 on Wed Medical mg/15 mL 10/25/20 Branch solution 10 at 1200, mg Until Discontinu ed, Routine enoxaparin 2019-11 Yes 40mg 40 mg, Unive rs (LOVENOX) 211 Subcutaneo ity of injection 15:00: us, DAILY, [...] ion of therapy: 7 days ciprofloxac 2019-11 2020- No 400mg 400 mg, IV Univers in [...] delayed-rel daily. Branch ease suspension ALPRAZolam 2019-11 No 2mg Take 2 mg U nivers [...] Indication s: acute pain ibuprofen 2019-11 Yes [id number] 600mg Take 1 U nivers 600 mg 2-05 tablet by ity of tablet 00:00: mouth [place] 00 every 6 Medical (six) Branch hours as needed for Pain (scale 1-3). proMETHazin 2019-11 Yes [id number] 25mg Take 1 Univers e 25 mg [...] Indication s: acute pain ibuprofen 2019-11 Yes [id number] 600mg Take 1 U nivers 600 mg 2-05 tablet by ity of tablet 00:00: mouth [place] 00 every 6 Medical (six) Branch hours as needed for Pain (scale 1-3). proMETHazin 2019-11 Yes [id number] 25mg Take 1 Univers e 25 mg 2-05 tablet by ity of tablet 00:00: mouth [place] 00 every 8 Medical (eight) Branch hours as needed for Nausea and Vomiting (N/V). gabapentin 2019-11 2020- No [id number] 300mg Take 1 Univers 300 mg 2-05 12-20 capsule by ity of capsule 00:00: 05:59 mouth 3 [place] 00 :00 (three) Medical times Branch daily for 14 days. gabapentin 2019- 2020- No [id number] 300mg Take 1 Univers 300 mg 2-05 [...] s: acute pain ALPRAZolam 2019- 2020- No [id number] 2mg Take 1 Univers 2 mg tablet 2- 12-13 tablet by it y of 00:00: 05:59 mouth 2 [place] 00 :00 (two) Medical times Branch daily for 7 days. ALPRAZolam 2019- 2020- No [id number] 2mg Take 1 Univers 2 mg tablet 2- 12-13 tablet by it y of 00:00: 05:59 mouth 2 [place] 00 :00 (two) Medical times Branch daily for 7 days. simethicone 2019- 2020- No [id number] 80mg Take 1 Univers 80 mg 2-05 12-11 tablet by ity of chewable 00:00: 05:59 mouth [place] tablet 00 :00 after Medical meals and Branch at bedtime for 5 days. simethicone 2019- 2020- No [id number] 80mg Take 1 Univers 80 mg 2-05 12-11 tablet by ity of chewable 00:00: 05:59 mouth [place] tablet 00 :00 after Medical meals and Branch at bedtime for 5 days. ibuprofen 2019- 2020- No [id number] 600mg Take 1 Univers 600 mg 2-05 12-10 tablet by ity of tablet 00:00: 00:00 mouth [place] 00 :00 every 6 Medical (six) Branch hours as needed for Pain (scale 1-3). simethicone 2019- 2020- No [id number] 80mg Take 1 Univers 80 mg 2-05 12-10 tablet by ity of chewable 00:00: 00:00 mouth [place] tablet 00 :00 after Medical meals and Branch at bedtime for 5 days. gabapentin 2019- 2020- No [id number] 300mg Take 1 Univers 300 mg 2-05 12-10 capsule by ity of capsule 00:00: 00:00 mouth 3 [place] 00 :00 (three) Medical times Branch daily for 14 days. ALPRAZolam 2019- 2020- No [id number] 2mg Take 1 Univers 2 mg tablet 2-05 12-10 tablet by it y of 00:00: 00:00 mouth 2 [place] 00 :00 (two) Medical times Branch daily for 7 days. proMETHazin 2019-11 2020- No [id number] 25mg Take 1 Univers e 25 mg 12-20 12- tablet by ity of tablet 00:00: 00:00 mouth [place] 00 :00 every 8 Medical (eight) Branch hours as needed for Nausea and Vomiting (N/V). proMETHazin 2019-11 2020- No [id number] 25mg Take 1 Univers e 25 mg 12-20-05 tablet by ity of tablet 00:00: 00:00 mouth [place] 00 :00 every 4 Medical (four) Branch hours as needed for Nausea and Vomiting (N/V) for up to 7 days. HYDROmorpho 2019-11 Yes 1mg 1 mg, Slow Univers ne 2-04 IV Push, ity of (DILAUDID) 02:56: Q6HPRN, [place] injection 1 33 Starting Medi ryann mg [facility] 10/17/20 at 2056, Until Discontinu ed, Routine, Pain (scale 7-10)
U se approved by (Faculty): GENERAL SURGERY
General surgeon approving: Darren Chun ALPRAZolam 2019-11 Yes .25mg 0.25 mg, Un thor (XANAX) 2-04 Oral, BID, ity of tablet 0.25 02:00: First dose [place] mg 00 on [facility] 10/17/20 at Branch 2000, Until Discontinu ed, Routine HYDROcodone 2019-11- No 5mg 5 mg, Univ ers -acetaminop 12-18 Oral, Q4H, i ty of hen (HYCET) 22:00: 22:24 First dose [place] 7.5-325 00 :22 (after Medical mg/15 mL last Branch solution 5 modificati mg on) on [facility] 10/17/20 at 1600, Until Discontinu ed, Routine bisacodyL 2019-11 Yes 10mg 10 mg, Univer s (DULCOLAX) 203 Rectal, ity of suppository 03:00: QHSPRN, [place] 10 mg 00 Starting Medical [facility] 10/16/20 at 2100, Until Discontinu ed, Routine, [...] dose Medi ryann 1,000 mg on Wed [place] 10/16/20 at 1400, Until Discontinu ed, Routine [...] [place] 10 mg 00 :00 dose, Wed [facility] 10/16/20 at Branch 0945, Routine melatonin 2019-11 Yes 3mg 3 mg, Univers (MELATIN) 12-17 Oral, QHS, ity of tablet 3 mg 03:00: First dose [place] 00 on Wed Medical 10/15/20 at Branch 2100, Until Discontinu ed, Routine acetaminoph 2019-11 2020- No 650mg 650 mg, U nivers en 12-16 Oral, Q8H, ity of (TYLENOL) 20:00: 14:59 First dose [place] 160 mg/5 mL 00 :29 on Wed Medica l liquid 650 10/15/20 at [facility] mg 1400, Until Discontinu ed, Routine HYDROcodone 2019-11 2020- No 5mg 5 mg, Univ ers -acetaminop 12-16 Oral, Q6H, i ty of hen (HYCET) 18:00: 19:51 First dose [place] 7.5-325 00 :24 (after Medical mg/15 mL last Branch solution 5 modificati mg on) on Wed10/15/20 at 1200, Until Discontinu ed, Routine HYDROMORPHO 2019-11 2020- No Unive rs NE PACKAGING MANAGER 12-16 ity of 6MG/30ML 17:00: 14:57 [place] 00 :48 Medical Branch NaCl 0.9% 2019-11 Yes 10mL 10 mL, Univer s (NS) 12-16 Slow IV ity of injection 16:51: Push, PRN, [place] 10 mL 43 Starting Medical [facility] 10/15/20 at 1051, Until Discontinu ed, Routine, line maintenanc e enoxaparin 2019-11 Yes 40mg 40 mg, Unive rs (LOVENOX) 12-16 Subcutaneo ity of injection 15:00: us, Q24H, [place] 40 mg 00 First dose Medical on [facility] 10/15/20 at 0900, Until Discontinu ed, Routine sennosides 2019-11 2020- No 8.6mg 8.6 mg, Un thor (SENOKOT) 12-16 Oral, ity of tablet 8.6 15:00: 19:51 DAILY, [place] mg 00 :23 First dose Medical on [facility] 10/15/20 at 0900, Until Discontinu ed, Routine docusate 2019-11 2020- No 100mg 100 mg, Univ ers (COLACE) 12-16 Oral, ity of capsule 100 15:00: 19:51 DAILY, [place] mg 00 :23 First dose Medical on [facility] 10/15/20 at 0900, Until Discontinu [...] HYDROMORPHO 2019-11 2020- No Unive rs NE PACKAGING MANAGER 12-16 ity of 6MG/30ML 03:00: 16:54 [place] [...] First dose [place] tablet 25 00 on Mon Medical mg 10/14/20 Branch at 1999, Until [...]
Indicatio n: Perioperat pasha Patient morpHINE 30 2019-11 2020- No Unive rs mg/30 mL 12-14 12 ity of (fixed 17:30: 01:59 [place] dose) PACKAGING MANAGER 00 :31 Medical injection Branch lactated 2019-11- [...] ity of (BENADRYL) 16:32: 18:15 Push, [place] injection 01 :20 Q4HPRN, Medical 12.5 mg Starting Branch Wed10/14/20 at 1032, Until Wed10/14/20 at 1215, Routine, Itching, PACU HYDROmorpho 2019-11- No .2mg 0.2 mg, Un thor ne 12-14 Slow IV ity of (DILAUDID) 16:32: 18:15 Push, [place] injection 00 :20 Q5MIN PRN, Medi ryann [...] Yes 40mg Take 40 mg Univers e 1-30 by mouth 2 ity of (PROTONIX) 16:22: (two) [place] 40 mg 03 times Medical delayed-rel daily. Branch ease suspension heparin 2019-11- No 5000U 5,000 Univers (porcine) 1-30 11-30 Units, ity of injection 12:45: 12:42 Subcutaneo [place] 5,000 Units 00 :00 us, ONCE, Med ical 1 dose, Branch [facility] 10/14/20 at 0645, Routine, DSU Pre-op gabapentin [...] 22:40: (two) [place] 26 times Medical daily. [place] ALPRAZolam 2019-11 Yes 2mg Take 2 mg Un thor (XANAX) 2 12-07 by mouth 2 ity of mg tablet 22:40: (two) [place] 26 times Medical daily. Branch ALPRAZolam 2019-11 Yes 2mg Take 2 mg Un thor (XANAX) 2 - by mouth 2 ity of mg tablet 22:40: (two) [place] 26 times Medical daily. Branch Pantoprazol 2019-11 Yes 40mg Take 40 mg Univers e 12-07 by mouth 2 ity of (PROTONIX) 22:39: (two) [place] 40 mg 35 times Medical delayed-rel daily. [place] ease suspension Pantoprazol 2019-11 Yes 40mg Take 40 mg Univers e 1-23 by mouth 2 ity of (PROTONIX) 22:39: (two) [place] 40 mg 35 times Medical delayed-rel daily. Branch ease suspension Pantoprazol 2019-11 Yes 40mg Take 40 mg Univers e 23 by mouth 2 ity of (PROTONIX) 22:39: [...] 1-3). Indication s: chronic pain acetaminoph 2019- Yes 2745 1{tbl} Take 1 Un thor [...] Branch ease suspension opium 10 2019-11 Yes [id number] 1mL Take 1 mL Univers mg/mL 1-13 by mouth ity of (morphine) 00:00: every 6 [place] tincture 00 (six) Medical hours. Branch opium 10 2019-11 Yes [id number] 1mL Take 1 mL Univers mg/mL 1-13 by mouth ity of (morphine) 00:00: every 6 [place] tincture 00 (six) Medical hours. Branch opium 10 2019-11 Yes [id number] 1mL Take 1 mL Univers mg/mL 1-13 by mouth ity of (morphine) 00:00: every 6 [place] tincture 00 (six) Medical hours. Branch opium 10 2019-11 Yes [id number] 1mL Take 1 mL Univers mg/mL 1-13 by mouth ity of (morphine) 00:00: every 6 [place] tincture 00 (six) Medical hours. Branch opium 10 2019-11 Yes [id number] 1mL Take 1 mL Univers mg/mL 1-13 by mouth ity of (morphine) 00:00: every 6 [place] tincture 00 (six) Medical hours. Branch opium 10 2019-11 Yes [id number] 1mL Take 1 mL Univers mg/mL 1-13 by mouth ity of (morphine) 00:00: every 6 [place] tincture 00 (six) Medical hours. Branch opium 10 2019-11 Yes [id number] 1mL Take 1 mL Univers mg/mL 1-13 by mouth ity of (morphine) 00:00: every 6 [place] tincture 00 (six) Medical hours. Branch opium 10 2019-11 Yes [id number] 1mL Take 1 mL Univers mg/mL 1-13 by mouth ity of (morphine) 00:00: every 6 [place] tincture 00 (six) Medical hours. Branch opium 10 2019-11 Yes [id number] 1mL Take 1 mL Univers mg/mL 1-13 by mouth ity of (morphine) 00:00: every 6 [place] tincture 00 (six) Medical hours. Branch opium 2019-11 Yes [id number] 1mL Take 1 mL Univers mg/mL 1-13 by mouth ity of (morphine) 00:00: every 6 [place] tincture 00 (six) Medical hours. Branch opium 10 2019-11 Yes [id number] 1mL Take 1 mL Univers mg/mL 1-13 by mouth ity of (morphine) 00:00: every 6 [place] tincture 00 (six) Medical hours. Branch opium 10 2019-11 Yes [id number] 1mL Take 1 mL Univers mg/mL 1-13 by mouth ity of (morphine) 00:00: every 6 [place] tincture 00 (six) Medical hours. Branch opium 2019-11 Yes [id number] 1mL Take 1 mL Univers mg/mL 1-13 by mouth ity of (morphine) 00:00: every 6 [place] tincture 00 (six) Medical hours. Branch opium 2019-11 Yes [id number] 1mL Take 1 mL Univers mg/mL 1-13 by mouth ity of (morphine) 00:00: every 6 [place] tincture 00 (six) Medical hours. Branch opium 2019-11 Yes [id number] 1mL Take 1 mL Univers mg/mL 1-13 by mouth ity of (morphine) 00:00: every 6 [place] tincture 00 (six) Medical hours. Branch opium 10 2019-11 Yes [id number] 1mL Take 1 mL Univers mg/mL 1-13 by mouth ity of (morphine) 00:00: every 6 [place] tincture 00 (six) Medical hours. Branch opium 10 2019-11 Yes [id number] 1mL Take 1 mL Univers mg/mL 1-13 by mouth ity of (morphine) 00:00: every 6 [place] tincture 00 (six) Medical hours. Branch opium 10 2019-11 Yes [id number] 1mL Take 1 mL Univers mg/mL 1-13 by mouth ity of (morphine) 00:00: every 6 [place] tincture 00 (six) Medical hours. Branch opium 10 2019-11 Yes [id number] 1mL Take 1 mL Univers mg/mL 1-13 by mouth ity of (morphine) 00:00: every 6 [place] tincture 00 (six) Medical hours. Branch opium 10 2019-11 Yes [id number] 1mL Take 1 mL Univers mg/mL 1-13 by mouth ity of (morphine) 00:00: every 6 [place] tincture 00 (six) Medical hours. Branch opium 10 2019-11 Yes [id number] 1mL Take 1 mL Univers mg/mL 1-13 by mouth ity of (morphine) 00:00: every 6 [place] tincture 00 (six) Medical hours. Branch opium 10 2019-11 Yes [id number] 1mL Take 1 mL Univers mg/mL 1-13 by mouth ity of (morphine) 00:00: every 6 [place] tincture 00 (six) Medical hours. Branch opium 10 2019-11 Yes [id number] 1mL Take 1 mL Univers mg/mL 1-13 by mouth ity of (morphine) 00:00: every 6 [place] tincture 00 (six) Medical hours. Branch opium 10 2019-11 Yes [id number] 1mL Take 1 mL Univers mg/mL 1-13 by mouth ity of (morphine) 00:00: every 6 [place] tincture 00 (six) Medical hours. Branch opium 10 2019-11 Yes [id number] 1mL Take 1 mL Univers mg/mL 1-13 by mouth ity of (morphine) 00:00: every 6 [place] tincture 00 (six) Medical hours. Branch opium 10 2019-11 Yes [id number] 1mL Take 1 mL Univers mg/mL 1-13 by mouth ity of (morphine) 00:00: every 6 [place] tincture 00 (six) Medical hours. [place] psyllium 2019-11- No [id number] 1{packe Take 1 Univers 3.4 gram 1-13 12-14 t} Packet by ity o f packet 00:00: 05:59 mouth 3 [place] 00 :00 (three) Medical times Branch daily before meals for 30 days. psyllium 2019-11- No [id number] 1{packe Take 1 Univers 3.4 gram 1-13 12-14 t} Packet by ity o f packet 00:00: 05:59 mouth 3 [place] 00 :00 ([facility]) Medical times Branch daily before meals for 30 days. psyllium 2019-11- No [id number] 1{packe Take 1 Univers 3.4 gram 1-13 12-14 t} Packet by ity o f packet 00:00: 05:59 mouth 3 [place] 00 :00 ([facility]) Medical times Branch daily before meals for 30 days. psyllium 2019-11- No [id number] 1{packe Take 1 Univers 3.4 gram 1-13 12-14 t} Packet by ity o f packet 00:00: 05:59 mouth 3 [place] 00 :00 ([facility]) Medical times Branch daily before meals for 30 days. psyllium 2019-11- No [id number] 1{packe Take 1 Univers 3.4 gram 1-13 12-14 t} Packet by ity o f packet 00:00: 05:59 mouth 3 [place] 00 :00 ([facility]) Medical times Branch daily before meals for 30 days. psyllium 2019-11- No [id number] 1{packe Take 1 Univers 3.4 gram 1-13 12-14 t} Packet by ity o f packet 00:00: 05:59 mouth 3 [place] 00 :00 ([facility]) Medical times Branch daily before meals for 30 days. psyllium 2019-11- No [id number] 1{packe Take 1 Univers 3.4 gram 1-13 12-14 t} Packet by ity o f packet 00:00: 05:59 mouth 3 [place] 00 :00 ([facility]) Medical times Branch daily before meals for 30 days. psyllium 2019-11- No [id number] 1{packe Take 1 Univers 3.4 gram 1-13 12-14 t} Packet by ity o f packet 00:00: 05:59 mouth 3 [place] 00 :00 ([facility]) Medical times Branch daily before meals for 30 days. psyllium 2019-11- No [id number] 1{packe Take 1 Univers 3.4 gram 1-13 12-14 t} Packet by ity o f packet 00:00: 05:59 mouth 3 [place] 00 :00 ([facility]) Medical times Branch daily before meals for 30 days. psyllium 2019-11- No [id number] 1{packe Take 1 Univers 3.4 gram 1-13 12-14 t} Packet by ity o f packet 00:00: 05:59 mouth 3 [place] 00 :00 (three) Medical times Branch daily before meals for 30 days. psyllium 2019-11- No [id number] 1{packe Take 1 Univers 3.4 gram 1-13 12-14 t} Packet by ity o f packet 00:00: 05:59 mouth 3 [place] 00 :00 (three) Medical times Branch daily before meals for 30 days. psyllium 2019-11- No [id number] 1{packe Take 1 Univers 3.4 gram 1-13 12-14 t} Packet by ity o f packet 00:00: 05:59 mouth 3 [place] 00 :00 (three) Medical times Branch daily before meals for 30 days. psyllium 2019-11- No [id number] 1{packe Take 1 Univers 3.4 gram 1-13 12-14 t} Packet by ity o f packet 00:00: 05:59 mouth 3 [place] 00 :00 (three) Medical times Branch daily before meals for 30 days. psyllium 2019-11- No [id number] 1{packe Take 1 Univers 3.4 gram 1-13 12-14 t} Packet by ity o f packet 00:00: 05:59 mouth 3 [place] 00 :00 (three) Medical times Branch daily before meals for 30 days. psyllium 2019-11- No [id number] 1{packe Take 1 Univers 3.4 gram 1-13 12-10 t} Packet by ity o f packet 00:00: 00:00 mouth 3 [place] 00 :00 (three) Medical times Branch daily before meals for 30 days. dextroamphe 2019-11 2020- No 30mg Take 30 mg Univers tamine-amph 11-1804 by mouth 2 i ty of etamine 23:07: 00:00 (two) [place] (ADDERALL) 54 :00 times Medical 30 mg daily. Branch tablet ALPRAZolam 2019-11 Yes 2mg Take 2 mg Un thor (XANAX) 2 -04 by mouth 2 ity of mg tablet 23:07: (two) [place] 52 times Medical daily. Branch Pantoprazol 2019-11 [...] Yes 50mg 50 mg, Unive rs tartrate 11-18 Oral, BID, ity o f (LOPRESSOR) 02:00: First dose [place] tablet 50 00 (after Medical mg last Branch modificati on) on Wed09/17/20 at 2000, Until Discontinu ed, Routine HYDROmorpho 2019-11 2020- No .5mg 0.5 mg, Un thor ne 11-18 Slow IV ity of (DILAUDID) 01:15: 00:26 Push, [place] injection 00 :00 ONCE, 1 Medical 0.5 mg dose, [facility] 09/17/20 at 1915, Routine
Use [...] Indication s: acute pain proMETHazin 2019-11- No [id number] 25mg Take 1 Univers e 25 mg 1-04 11-25 tablet by ity of tablet 00:00: 05:59 mouth [place] 00 :00 every 6 Medical (six) Branch hours as needed for Nausea and Vomiting (N/V) for up to 20 days. proMETHazin 2019-11- No [id number] 25mg Take 1 Univers e 25 mg 1-04 11-25 tablet by ity of tablet 00:00: 05:59 mouth [place] 00 :00 every 6 Medical (six) Branch hours as needed for Nausea and Vomiting (N/V) for up to 20 days. proMETHazin 2019-11- No [id number] 25mg Take 1 Univers e 25 mg 1-04 11-25 tablet by ity of tablet 00:00: 05:59 mouth [place] 00 :00 every 6 Medical (six) Branch hours as needed for Nausea and Vomiting (N/V) for up to 20 days. proMETHazin 2019-11- No [id number] 25mg Take 1 Univers e 25 mg 1-04 11-25 tablet by ity of tablet 00:00: 05:59 mouth [place] 00 :00 every 6 Medical (six) Branch hours as needed for Nausea and Vomiting (N/V) for up to 20 days. proMETHazin 2019-11- No [id number] 25mg Take 1 Univers e 25 mg 1-04 11-25 tablet by ity of tablet 00:00: 05:59 mouth [place] 00 :00 every 6 Medical (six) Branch hours as needed for Nausea and Vomiting (N/V) for up to 20 days. proMETHazin 2019-11- No [id number] 25mg Take 1 Univers e 25 mg 1-04 11-25 tablet by ity of tablet 00:00: 05:59 mouth [place] 00 :00 every 6 Medical (six) Branch hours as needed for Nausea and Vomiting (N/V) for up to 20 days. proMETHazin 2019-11- No [id number] 25mg Take 1 Univers e 25 mg 1-04 11-25 tablet by ity of tablet 00:00: 05:59 mouth [place] 00 :00 every 6 Medical (six) Branch hours as needed for Nausea and Vomiting (N/V) for up to 20 days. proMETHazin 2019-11- No [id number] 25mg Take 1 Univers e 25 mg 1-04 11-25 tablet by ity of tablet 00:00: 05:59 mouth [place] 00 :00 every 6 Medical (six) Branch hours as needed for Nausea and Vomiting (N/V) for up to 20 days. proMETHazin 2019-11- No [id number] 25mg Take 1 Univers e 25 mg 1-04 11-25 tablet by ity of tablet 00:00: 05:59 mouth [place] 00 :00 every 6 Medical (six) Branch hours as needed for Nausea and Vomiting (N/V) for up to 20 days. proMETHazin 2019-11- No [id number] 25mg Take 1 Univers e 25 mg 1-04 11-25 tablet by ity of tablet 00:00: 05:59 mouth [place] 00 :00 every 6 Medical (six) Branch hours as needed for Nausea and Vomiting (N/V) for up to 20 days. proMETHazin 2019-11- No [id number] 25mg Take 1 Univers e 25 mg 1-04 11-25 tablet by ity of tablet 00:00: 05:59 mouth [place] 00 :00 every 6 Medical (six) Branch hours as needed for Nausea and Vomiting (N/V) for up to 20 days. proMETHazin 2019-2019- No [id number] 25mg Take 1 Univers e 25 mg 11-1825 tablet by ity of tablet 00:00: 05:59 mouth [place] 00 :00 every 6 Medical (six) Branch hours as needed for Nausea and Vomiting (N/V) for up to 20 days. proMETHazin 2019- 2020- No [id number] 25mg Take 1 Univers e 25 mg 11-1825 tablet by ity of tablet 00:00: 05:59 mouth [place] 00 :00 every 6 Medical (six) Branch hours as needed for Nausea and Vomiting (N/V) for up to 20 days. proMETHazin 2019-2019- No [id number] 25mg Take 1 Univers e 25 mg [...]
Use approved by (Faculty): ADC PROVIDER HYDROmorpho 2019-2019- No .5mg 0.5 mg, Un thor ne 11-16 Slow IV ity of (DILAUDID) 19:45: 19:10 Push, [place] injection 00 :00 ONCE, 1 Medical 0.5 mg dose, Mon Branch 09/16/20 at 1345, Routine
Use approved by (Faculty): ADC PROVIDER HYDROcodone 2019-11 Yes 2{tbl} 2 tablet, Univers -acetaminop 11-16 Oral, ity of hen (NORCO 18:45: Q6HPRN, [place] 5) 5-325 mg 00 Starting Medi yrann tablet 2 Mon Branch tablet 09/16/20 at [...] se approved by (Faculty): ADC PROVIDER HYDROmorpho 2019-11 No 1mg 1 mg, Slow Univers ne 11-15 IV Push, ity of (DILAUDID) 02:30: 02:27 ONCE, 1 [place] injection 1 00 :00 dose, Sat Med ical mg 09/14/20 Branch at 2130, Routine
Use approved by (Faculty): ADC PROVIDER psyllium 2019-11 Yes 1{packe 1 Packet, U nivers (METAMUCIL 0-31 t} Oral, BID, ity of FIBER 19:15: First dose [place] SINGLES) 00 on Sat Medical 3.4 gram [...] 2020- No 1{tbl} 1 tablet, Univers -acetaminop 0-09-15 Oral, ity of hen (NORCO) 14:35: 07:40 [...] TIDPRN, [place] mg 00 Starting Medical [facility] Branch 09/14/20 at 0800, Until Discontinu ed, Routine, anxiety clindamycin 2019-11- No 600mg 600 mg, IV Univers in 5 % 09-14 Piggyback, ity of dextrose 06:45: 19:02 Q8H ABX, [place] (CLEOCIN) 00 :12 First dose Medi ryann 600 mg/50 on [facility] Branch mL IV 09/14/20 piggyback at 0145, [...] at 2200, Until Discontinu ed, Routine proMETHazin 2019-11 2020- No 12.5mg 12.5 mg, Univers e 002 [...] at 2249, Routine, Pain (scale 7-10) ALPRAZolam 2019-1 Yes 2mg Take 2 mg Un thor [...] it y of etamine 21:19: (two) [place] (ADDERALL) 51 times Medical 30 mg daily. Branch tablet Pantoprazol 2019-11 Yes 40mg Take 40 mg Univers e 0-30 by mouth 2 ity of (PROTONIX) 21:19: (two) [place] 40 mg 51 times Medical delayed-rel daily. Branch ease suspension diphenhydrA 2019-11 2020- No 12.5mg 12.5 mg, Univers MINE 0-30 31 Slow IV ity of (BENADRYL) 21:14: 14:27 Push, [place] injection 00 :41 Q6HPRN, Medical 12.5 mg Starting Wed09/13/20 at 1614, Until 09/14/20 at 0927, Routine, Itching acetaminoph 2019-11 Yes 650mg 650 mg, Un thor en 0-30 Oral, ity of (TYLENOL) 20:56: Q6HPRN, [place] tablet 650 54 Starting Medic al mg Wed09/13/20 at 1556, Until Discontinu ed, Routine, Pain [...] delayed-rel daily. Branch ease suspension NaCl 0.9% 2019-11 2020- No 1000mL at 999 Uni vers (NS) IV 0-30 10-30 mL/hr, IV ity of infusion 19:15: 18:11 Infusion, [place] 1,000 mL 00 :00 ONCE, 1 Medical dose, Wed Branch 09/13/20 at 1415, LUISA famotidine 2019-11- No 20mg 20 mg, Univ ers (PEPCID 0-30 10-30 Slow IV ity of (PF)) 19:15: 18:11 Push, [place] injection 00 :00 ONCE, 1 Medical 20 mg dose, Wed Branch 09/13/20 at 1415, LUISA methylpredn 2019-11 2020- No 125mg 125 mg, IV Univers isolone sod 0-30 10-30 Piggyback, i ty of succ 19:15: 18:06 ONCE, 1 [place] (SOLU-MEDRO 00 :00 dose, Wed Med ical [...] by mouth 2 ity of mg tablet :: (two) [place] 56 times Medical daily. Branch [...] mL at 0600, piggyback 50 mL morpHINE 2019-11 2020- No [...] IV Medical Infusion, Branch ONCE, 1 dose, [place] 09/01/20 at 0300, STAT diphenhydrA 2019-11- No 25mg 25 mg, Uni vers MINE 0-18 10-18 Slow IV ity of (BENADRYL) 08:00: 07:20 Push, [place] injection 00 :00 ONCE, 1 Medical 25 mg dose, [place] Branch 09/01/20 at 0300, STAT proMETHazin 2019-11- [...] 07:22 ONCE, 1 [place] 00 :00 dose, [place] Medical 09/01/20 Branch at 0300, STAT iohexol [...] ONCE, 1 Medical 12.5 mg dose, Fri [place] 08/23/20 at 1900, STAT morpHINE 2019-11- No 4mg 4 mg, Slow Un thor injection 4 0-10 09 IV Push, ity of mg 00:00: 23:43 ONCE, 1 [place] 00 :00 dose, Fri Medical 08/23/20 at Branch 1900, STAT NaCl 0.9% 2019-11- No 1000mL at 999 Uni vers (NS) bolus 0-09 10-10 mL/hr, ity of infusion 23:45: 00:00 1,000 mL, [place] 1,000 mL 00 :00 IV Medical Infusion, [place] ONCE, 1 dose, [facility] 08/23/20 at 1845, STAT ALPRAZolam 2019-11 Yes [...] Sat Medica l NaCl 0.9% 08/17/20 at [facility] (NS) 50 mL 2315, 50 piggyback mL morpHINE 2019-11- No 4mg 4 mg, Slow Un thor injection 4 0-04 10-04 IV Push, ity of mg 04:15: 03:25 ONCE, 1 [place] 00 :00 dose, Sat Medical 08/17/20 at [place] 2315, STAT NaCl 0.9% 2019-11- No 500mL at 999 Univ ers (NS) bolus 0-04 10-04 mL/hr, 500 it y of infusion 04:15: 05:26 mL, IV [place] 500 mL 00 :00 Infusion, Medical ONCE, 1 [place] dose, 08/17/20 at 2315, STAT iohexol 2019-11- No 119mL 119 mL, Unive rs (OMNIPAQUE 0-04 08-18 Intravenou it y of 350 02:19: 02:19 s, ONCE, 1 [place] BULK-150 00 :00 dose, Sat Medica l mL) 08/17/20 at Branch injection 2129, 119 mL Routine NaCl 0.9% 2019-11 Yes [...] Sat Medica l NaCl 0.9% 08/17/20 at [facility] ch (NS) 50 mL 2114, 50 piggyback mL morpHINE 2019-11- No 4mg 4 mg, Slow Un thor injection 4 008-18 IV Push, ity of mg 02:15: 01:24 ONCE, 1 [place] 00 :00 dose, Sat Medical 08/17/20 at Branch 2114, STAT diphenhydrA 2019-11 2020- No 25mg 25 mg, Uni vers MINE 0-08-18 Slow IV ity of (BENADRYL) 02:15: 01:24 Push, [place] injection 00 :00 ONCE, 1 Medical 25 mg dose, Sat Branch 08/17/20 at 211, STAT proMETHazin 2019-11 Yes [id number] 25mg Take 1 Univers e 25 mg 0-03 tablet by ity of tablet 00:00: mouth [place] 00 every 6 Medical (six) Branch hours as needed for Nausea and Vomiting (N/V). proMETHazin 2019-11 Yes [id number] 25mg Take 1 [facility] e 25 mg 0-03 tablet by ity of tablet 00:00: mouth [place] 00 every 6 Medical (six) Branch hours as needed for Nausea and Vomiting (N/V). proMETHazin 2019-11 Yes [id number] 25mg Take 1 Univers e 25 mg 0-03 tablet by ity of tablet 00:00: mouth [place] 00 every 6 Medical (six) Branch hours as needed for Nausea and Vomiting (N/V). proMETHazin 2020-1 Yes [id number] 25mg Take 1 [facility] e 25 mg 0-03 tablet by ity of tablet 00:00: mouth [place] 00 every 6 Medical (six) Branch hours as needed for Nausea and Vomiting (N/V). proMETHazin 2020-1 Yes [id number] 25mg Take 1 [facility] e 25 mg 0-03 tablet by ity of tablet 00:00: mouth [place] 00 every 6 Medical (six) Branch hours as needed for Nausea and Vomiting (N/V). proMETHazin 2020- Yes [id number] 25mg Take 1 [facility] e 25 mg 0-03 tablet by ity of tablet 00:00: mouth [place] 00 every 6 Medical (six) Branch hours as needed for Nausea and Vomiting (N/V). proMETHazin 2019- Yes [id number] 25mg Take 1 [facility] e 25 mg 0-03 tablet by ity of tablet 00:00: mouth [place] 00 every 6 Medical (six) Branch hours as needed for Nausea and Vomiting (N/V). proMETHazin 2019- Yes [id number] 25mg Take 1 [facility] e 25 mg 0-03 tablet by ity of tablet 00:00: mouth [place] 00 every 6 Medical (six) Branch hours as needed for Nausea and Vomiting (N/V). proMETHazin 2019-1 Yes [id number] 25mg Take 1 [facility] e 25 mg 0-03 tablet by ity of tablet 00:00: mouth [place] 00 every 6 Medical (six) Branch hours as needed for Nausea and Vomiting (N/V). proMETHazin 2019-1 Yes [id number] 25mg Take 1 [facility] e 25 mg 0-03 tablet by ity of tablet 00:00: mouth [place] 00 every 6 Medical (six) Branch hours as needed for Nausea and Vomiting (N/V). proMETHazin 2020-1 Yes [id number] 25mg Take 1 [facility] e 25 mg 0-03 tablet by ity of tablet 00:00: mouth [place] 00 every 6 Medical (six) Branch hours as needed for Nausea and Vomiting (N/V). proMETHazin 2020-1 Yes [id number] 25mg Take 1 [facility] e 25 mg 0-03 tablet by ity of tablet 00:00: mouth [place] 00 every 6 Medical (six) Branch hours as needed for Nausea and Vomiting (N/V). proMETHazin 2020-1 Yes [id number] 25mg Take 1 [facility] e 25 mg 0-03 tablet by ity of tablet 00:00: mouth [place] 00 every 6 Medical (six) Branch hours as needed for Nausea and Vomiting (N/V). proMETHazin 2019- Yes [id number] 25mg Take 1 [facility] e 25 mg 0-03 tablet by ity of tablet 00:00: mouth [place] 00 every 6 Medical (six) Branch hours as needed for Nausea and Vomiting (N/V). proMETHazin 2019- Yes [id number] 25mg Take 1 [facility] e 25 mg 0-03 tablet by ity of tablet 00:00: mouth [place] 00 every 6 Medical (six) Branch hours as needed for Nausea and Vomiting (N/V). proMETHazin 2019- Yes [id number] 25mg Take 1 [facility] e 25 mg 0-03 tablet by ity of tablet 00:00: mouth [place] 00 every 6 Medical (six) Branch hours as needed for Nausea and Vomiting (N/V). proMETHazin 2019- Yes [id number] 25mg Take 1 [facility] e 25 mg 0-03 tablet by ity of tablet 00:00: mouth [place] 00 every 6 Medical (six) Branch hours as needed for Nausea and Vomiting (N/V). proMETHazin 2019- Yes [id number] 25mg Take 1 [facility] e 25 mg 0-03 tablet by ity of tablet 00:00: mouth [place] 00 every 6 Medical (six) Branch hours as needed for Nausea and Vomiting (N/V). proMETHazin 2019- Yes [id number] 25mg Take 1 [facility] e 25 mg 0-03 tablet by ity of tablet 00:00: mouth [place] 00 every 6 Medical (six) Branch hours as needed for Nausea and Vomiting (N/V). proMETHazin 2019-11 2020- No [id number] 25mg Take 1 [facility] 25 mg [...] [place] 2 [place] 00 Starting [facility] Branch 08/01/20 at 0700, Until Discontinu ed, Routine, Pain (scale 7-10) ibuprofen 2020-0 Yes [id number] 600mg Take 1 [facility] 600 mg 9-17 tablet by ity of tablet 00:00: mouth [place] 00 every 6 Medical (six) Branch hours. loperamide 2020-0 Yes [id number] 2mg Take 1 [facility] 2 mg 9-17 capsule by ity of capsule 00:00: mouth [place] 00 daily. Medical Branch methocarbam 2020-0 Yes [id number] 500mg Take 1 [facility] oL 500 mg 9-17 tablet by ity o f tablet 00:00: mouth 4 00 (four) Medical times Branch daily. ibuprofen 2020-0 Yes [id number] 600mg Take 1 [facility] 600 mg 9-17 tablet by ity of tablet 00:00: mouth [place] 00 every 6 Medical (six) Branch hours. loperamide 2020-0 Yes [id number] 2mg Take 1 [facility] 2 mg 9-17 capsule by ity of capsule 00:00: mouth [place] 00 daily. Medical Branch methocarbam 2020-0 Yes [id number] 500mg Take 1 [facility] oL 500 mg 9-17 tablet by ity o f tablet 00:00: mouth 00 (four) Medical times Branch daily. ibuprofen 2020-0 Yes [id number] 600mg Take 1 [facility] 600 mg 9-17 tablet by ity of tablet 00:00: mouth [place] 00 every 6 Medical (six) Branch hours. loperamide 2020-0 Yes [id number] 2mg Take 1 [facility] 2 mg 9-17 capsule by ity of capsule 00:00: mouth [place] 00 daily. Medical Branch methocarbam 2020-0 Yes [id number] 500mg Take 1 [facility] oL 500 mg 9-17 tablet by ity o f tablet 00:00: mouth 4 (four) Medical times Branch daily. ibuprofen 2020-0 Yes [id number] 600mg Take 1 [facility] 600 mg 9-17 tablet by ity of tablet 00:00: mouth [place] 00 every 6 Medical (six) Branch hours. loperamide 2020-0 Yes [id number] 2mg Take 1 [facility] 2 mg 9-17 capsule by ity of capsule 00:00: mouth [place] 00 daily. Medical Branch methocarbam 2020-0 Yes [id number] 500mg Take 1 [facility] oL 500 mg 9-17 tablet by ity o f tablet 00:00: mouth 4 [place] 00 (four) Medical times Branch daily. ibuprofen 2020-0 Yes [id number] 600mg Take 1 [facility] 600 mg 9-17 tablet by ity of tablet 00:00: mouth [place] 00 every 6 Medical (six) Branch hours. loperamide 2020-0 Yes [id number] 2mg Take 1 [facility] 2 mg 9-17 capsule by ity of capsule 00:00: mouth 00 daily. Medical Branch methocarbam 2020-0 Yes [id number] 500mg Take 1 [facility] oL 500 mg 9-17 tablet by ity o f tablet 00:00: mouth (four) Medical times Branch daily. ibuprofen 2020-0 Yes [id number] 600mg Take 1 [facility] 600 mg 9-17 tablet by ity of tablet 00:00: mouth 00 every 6 Medical (six) Branch hours. loperamide 2020-0 Yes [id number] 2mg Take 1 [facility] 2 mg 9-17 capsule by ity of capsule 00:00: mouth 00 daily. Medical Branch methocarbam 2020-0 Yes [id number] 500mg Take 1 [facility] oL 500 mg 9-17 tablet by ity o f tablet 00:00: mouth (four) Medical times Branch daily. ibuprofen 2020-0 Yes [id number] 600mg Take 1 [facility] 600 mg 9-17 tablet by ity of tablet 00:00: mouth 00 every 6 Medical (six) Branch hours. loperamide 2020-0 Yes [id number] 2mg Take 1 [facility] 2 mg 9-17 capsule by ity of capsule 00:00: mouth 00 daily. Medical Branch methocarbam 2020-0 Yes [id number] 500mg Take 1 [facility] oL 500 mg 9-17 tablet by ity o f tablet 00:00: mouth (four) Medical times Branch daily. ibuprofen 2020-0 Yes [id number] 600mg Take 1 [facility] 600 mg 9-17 tablet by ity of tablet 00:00: mouth 00 every 6 Medical (six) Branch hours. loperamide 2020-0 Yes [id number] 2mg Take 1 [facility] 2 mg 9-17 capsule by ity of capsule 00:00: mouth 00 daily. Medical Branch methocarbam 2020-0 Yes [id number] 500mg Take 1 [facility] oL 500 mg 9-17 tablet by ity o f tablet 00:00: mouth (four) Medical times Branch daily. ibuprofen 2020-0 Yes [id number] 600mg Take 1 [facility] 600 mg 9-17 tablet by ity of tablet 00:00: mouth [place] 00 every 6 Medical (six) Branch hours. loperamide 2020-0 Yes [id number] 2mg Take 1 [facility] 2 mg 9-17 capsule by ity of capsule 00:00: mouth [place] 00 daily. Medical Branch methocarbam 2020-0 Yes [id number] 500mg Take 1 Univers oL 500 mg 9-17 tablet by ity o f tablet 00:00: mouth 4 (four) Medical times Branch daily. ibuprofen 2020-0 Yes [id number] 600mg Take 1 [facility] 600 mg 9-17 tablet by ity of tablet 00:00: mouth [place] 00 every 6 Medical (six) Branch hours. loperamide 2020-0 Yes [id number] 2mg Take 1 [facility] 2 mg 9-17 capsule by ity of capsule 00:00: mouth [place] 00 daily. Medical Branch methocarbam 2020-0 Yes [id number] 500mg Take 1 [facility] oL 500 mg 9-17 tablet by ity o f tablet 00:00: mouth (four) Medical times Branch daily. ibuprofen 2020-0 Yes [id number] 600mg Take 1 [facility] 600 mg 9-17 tablet by ity of tablet 00:00: mouth [place] 00 every 6 Medical (six) Branch hours. loperamide 2020-0 Yes [id number] 2mg Take 1 [facility] 2 mg 9-17 capsule by ity of capsule 00:00: mouth [place] 00 daily. Medical Branch methocarbam 2020-0 Yes [id number] 500mg Take 1 [facility] oL 500 mg 9-17 tablet by ity o f tablet 00:00: mouth (four) Medical times Branch daily. ibuprofen 2020-0 Yes [id number] 600mg Take 1 [facility] 600 mg 9-17 tablet by ity of tablet 00:00: mouth [place] 00 every 6 Medical (six) Branch hours. loperamide 2020-0 Yes [id number] 2mg Take 1 [facility] 2 mg 9-17 capsule by ity of capsule 00:00: mouth [place] 00 daily. Medical Branch methocarbam 2020-0 Yes [id number] 500mg Take 1 [facility] oL 500 mg 9-17 tablet by ity o f tablet 00:00: mouth (four) Medical times Branch daily. ibuprofen 2020-0 Yes [id number] 600mg Take 1 [facility] 600 mg 9-17 tablet by ity of tablet 00:00: mouth [place] 00 every 6 Medical (six) Branch hours. loperamide 2020-0 Yes [id number] 2mg Take 1 [facility] 2 mg 9-17 capsule by ity of capsule 00:00: mouth 00 daily. Medical Branch methocarbam 2020-0 Yes [id number] 500mg Take 1 [facility] oL 500 mg 9-17 tablet by ity o f tablet 00:00: mouth 00 (four) Medical times Branch daily. ibuprofen 2020-0 Yes [id number] 600mg Take 1 [facility] 600 mg 9-17 tablet by ity of tablet 00:00: mouth [place] 00 every 6 Medical (six) Branch hours. loperamide 2020-0 Yes [id number] 2mg Take 1 [facility] 2 mg 9-17 capsule by ity of capsule 00:00: mouth 00 daily. Medical Branch methocarbam 2020-0 Yes [id number] 500mg Take 1 [facility] oL 500 mg 9-17 tablet by ity o f tablet 00:00: mouth (four) Medical times Branch daily. ibuprofen 2020-0 Yes [id number] 600mg Take 1 [facility] 600 mg 9-17 tablet by ity of tablet 00:00: mouth 00 every 6 Medical (six) Branch hours. loperamide 2020-0 Yes [id number] 2mg Take 1 [facility] 2 mg 9-17 capsule by ity of capsule 00:00: mouth 00 daily. Medical Branch methocarbam 2020-0 Yes [id number] 500mg Take 1 [facility] oL 500 mg 9-17 tablet by ity o f tablet 00:00: mouth (four) Medical times Branch daily. ibuprofen 2020-0 Yes [id number] 600mg Take 1 [facility] 600 mg 9-17 tablet by ity of tablet 00:00: mouth [place] 00 every 6 Medical (six) Branch hours. loperamide 2020-0 Yes [id number] 2mg Take 1 [facility] 2 mg 9-17 capsule by ity of capsule 00:00: mouth 00 daily. Medical Branch methocarbam 2020-0 Yes [id number] 500mg Take 1 [facility] oL 500 mg 9-17 tablet by ity o f tablet 00:00: mouth (four) Medical times Branch daily. ibuprofen 2020-0 Yes [id number] 600mg Take 1 [facility] 600 mg 9-17 tablet by ity of tablet 00:00: mouth [place] 00 every 6 Medical (six) Branch hours. loperamide 2020-0 Yes [id number] 2mg Take 1 [facility] 2 mg 9-17 capsule by ity of capsule 00:00: mouth [place] 00 daily. Medical Branch methocarbam 2020-0 Yes [id number] 500mg Take 1 [facility] oL 500 mg 9-17 tablet by ity o f tablet 00:00: mouth 4 00 (four) Medical times Branch daily. ibuprofen 2020-0 Yes [id number] 600mg Take 1 [facility] 600 mg 9-17 tablet by ity of tablet 00:00: mouth [place] 00 every 6 Medical (six) Branch hours. loperamide 2020-0 Yes [id number] 2mg Take 1 [facility] 2 mg 9-17 capsule by ity of capsule 00:00: mouth [place] 00 daily. Medical Branch methocarbam 2020-0 Yes [id number] 500mg Take 1 [facility] oL 500 mg 9-17 tablet by ity o f tablet 00:00: mouth 00 (four) Medical times Branch daily. ibuprofen 2020-0 Yes [id number] 600mg Take 1 [facility] 600 mg 9-17 tablet by ity of tablet 00:00: mouth [place] 00 every 6 Medical (six) Branch hours. loperamide 2020-0 Yes [id number] 2mg Take 1 [facility] 2 mg 9-17 capsule by ity of capsule 00:00: mouth 00 daily. Medical Branch methocarbam 2020-0 Yes [id number] 500mg Take 1 [facility] oL 500 mg 9-17 tablet by ity o f tablet 00:00: mouth (four) Medical times Branch daily. ibuprofen 2020-0 Yes [id number] 600mg Take 1 [facility] 600 mg 9-17 tablet by ity of tablet 00:00: mouth [place] 00 every 6 Medical (six) Branch hours. loperamide 2020-0 Yes [id number] 2mg Take 1 [facility] 2 mg 9-17 capsule by ity of capsule 00:00: mouth 00 daily. Medical Branch methocarbam 2020-0 Yes [id number] 500mg Take 1 [facility] oL 500 mg 9-17 tablet by ity o f tablet 00:00: mouth (four) Medical times Branch daily. ibuprofen 2020-0 Yes [id number] 600mg Take 1 [facility] 600 mg 9-17 tablet by ity of tablet 00:00: mouth [place] 00 every 6 Medical (six) Branch hours. loperamide 2020-0 Yes [id number] 2mg Take 1 [facility] 2 mg 9-17 capsule by ity of capsule 00:00: mouth 00 daily. Medical Branch methocarbam 2020-0 Yes [id number] 500mg Take 1 [facility] oL 500 mg 9-17 tablet by ity o f tablet 00:00: mouth (four) Medical times Branch daily. ibuprofen 2020-0 Yes [id number] 600mg Take 1 [facility] 600 mg 9-17 tablet by ity of tablet 00:00: mouth [place] 00 every 6 Medical (six) Branch hours. loperamide 2020-0 Yes [id number] 2mg Take 1 [facility] 2 mg 9-17 capsule by ity of capsule 00:00: mouth 00 daily. Medical Branch methocarbam 2020-0 Yes [id number] 500mg Take 1 [facility] oL 500 mg 9-17 tablet by ity o f tablet 00:00: mouth (four) Medical times Branch daily. ibuprofen 2020-0 Yes [id number] 600mg Take 1 [facility] 600 mg 9-17 tablet by ity of tablet 00:00: mouth 00 every 6 Medical (six) Branch hours. loperamide 2020-0 Yes [id number] 2mg Take 1 [facility] 2 mg 9-17 capsule by ity of capsule 00:00: mouth 00 daily. Medical Branch methocarbam 2020-0 Yes [id number] 500mg Take 1 [facility] oL 500 mg 9-17 tablet by ity o f tablet 00:00: mouth (four) Medical times Branch daily. ibuprofen 2020-0 Yes [id number] 600mg Take 1 [facility] 600 mg 9-17 tablet by ity of tablet 00:00: mouth 00 every 6 Medical (six) Branch hours. loperamide 2020-0 Yes [id number] 2mg Take 1 [facility] 2 mg 9-17 capsule by ity of capsule 00:00: mouth 00 daily. Medical Branch methocarbam 2020-0 Yes [id number] 500mg Take 1 [facility] oL 500 mg 9-17 tablet by ity o f tablet 00:00: mouth (four) Medical times Branch daily. ibuprofen 2020-0 Yes [id number] 600mg Take 1 [facility] 600 mg 9-17 tablet by ity of tablet 00:00: mouth [place] 00 every 6 Medical (six) Branch hours. loperamide 2020-0 Yes [id number] 2mg Take 1 [facility] 2 mg 9-17 capsule by ity of capsule 00:00: mouth [place] 00 daily. Medical Branch methocarbam 2020-0 Yes [id number] 500mg Take 1 [facility] oL 500 mg 9-17 tablet by ity o f tablet 00:00: mouth (four) Medical times Branch daily. ibuprofen 2020-0 Yes [id number] 600mg Take 1 [facility] 600 mg 9-17 tablet by ity of tablet 00:00: mouth [place] 00 every 6 Medical (six) Branch hours. methocarbam 2020-0 Yes [id number] 500mg Take 1 [facility] oL 500 mg 9-17 tablet by ity o f tablet 00:00: mouth (four) Medical times Branch daily. ibuprofen 2020-0 Yes [id number] 600mg Take 1 [facility] 600 mg 9-17 tablet by ity of tablet 00:00: mouth 00 every 6 Medical (six) Branch hours. methocarbam 2020-0 Yes [id number] 500mg Take 1 [facility] oL 500 mg 9-17 tablet by ity o f tablet 00:00: mouth (four) Medical times Branch daily. ibuprofen 2020-0 Yes [id number] 600mg Take 1 [facility] 600 mg 9-17 tablet by ity of tablet 00:00: mouth [place] 00 every 6 Medical (six) Branch hours. methocarbam 2020-0 Yes [id number] 500mg Take 1 [facility] oL 500 mg 9-17 tablet by ity o f tablet 00:00: mouth (four) Medical times Branch daily. ibuprofen 2020-0 Yes [id number] 600mg Take 1 [facility] 600 mg 9-17 tablet by ity of tablet 00:00: mouth [place] 00 every 6 Medical (six) Branch hours. methocarbam 2020-0 Yes [id number] 500mg Take 1 [facility] oL 500 mg 9-17 tablet by ity o f tablet 00:00: mouth (four) Medical times Branch daily. acetaminoph 2020-0 2020- No [id number] 650mg Take 2 Univers en 325 mg 9-17 09-18 tablets by ity of tablet 00:00: 04:59 mouth [place] 00 :00 every 6 Medical (six) Branch hours. acetaminoph 2020-0 2020- No [id number] 650mg Take 2 Univers en 325 mg 9-17 09-18 tablets by ity of tablet 00:00: 04:59 mouth [place] 00 :00 every 6 Medical (six) Branch hours. acetaminoph 2020-0 2020- No [id number] 650mg Take 2 [facility] en 325 mg 9-17 09-18 tablets by ity of tablet 00:00: 04:59 mouth [place] 00 :00 every 6 Medical (six) Branch hours. acetaminoph 2020- No [id number] 650mg Take 2 [facility] en 325 mg 9-17 09-18 tablets by ity of tablet 00:00: 04:59 mouth [place] 00 :00 every 6 Medical (six) Branch hours. acetaminoph 2020- No [id number] 650mg Take 2 [facility] en 325 mg 9-17 09-18 tablets by ity of tablet 00:00: 04:59 mouth [place] 00 :00 every 6 Medical (six) Branch hours. acetaminoph 2020- No [id number] 650mg Take 2 [facility] en 325 mg 9-17 09-18 tablets by ity of tablet 00:00: 04:59 mouth [place] 00 :00 every 6 Medical (six) Branch hours. acetaminoph 2020- No [id number] 650mg Take 2 Univers en 325 mg 9-17 09-18 tablets by ity of tablet 00:00: 04:59 mouth [place] 00 :00 every 6 Medical (six) Branch hours. acetaminoph 2020- No [id number] 650mg Take 2 [facility] en 325 mg 9-17 09-18 tablets by ity of tablet 00:00: 04:59 mouth [place] 00 :00 every 6 Medical (six) Branch hours. acetaminoph 2020- No [id number] 650mg Take 2 [facility] en 325 mg 9-17 09-18 tablets by ity of tablet 00:00: 04:59 mouth [place] 00 :00 every 6 Medical (six) Branch hours. acetaminoph 2020- No [id number] 650mg Take 2 [facility] en 325 mg 9-17 09-18 tablets by ity of tablet 00:00: 04:59 mouth [place] 00 :00 every 6 Medical (six) Branch hours. acetaminoph 2020- No [id number] 650mg Take 2 [facility] en 325 mg 9-17 09-18 tablets by ity of tablet 00:00: 04:59 mouth [place] 00 :00 every 6 Medical (six) Branch hours. acetaminoph 2020- No [id number] 650mg Take 2 [facility] en 325 mg 9-17 09-18 tablets by ity of tablet 00:00: 04:59 mouth [place] 00 :00 every 6 Medical (six) Branch hours. acetaminoph 2020- No [id number] 650mg Take 2 [facility] en 325 mg 9-17 09-18 tablets by ity of tablet 00:00: 04:59 mouth [place] 00 :00 every 6 Medical (six) Branch hours. acetaminoph 2020- No [id number] 650mg Take 2 [facility] en 325 mg 9-17 09-18 tablets by ity of tablet 00:00: 04:59 mouth [place] 00 :00 every 6 Medical (six) Branch hours. acetaminoph 2020- No [id number] 650mg Take 2 [facility] en 325 mg 9-17 09-18 tablets by ity of tablet 00:00: 04:59 mouth [place] 00 :00 every 6 Medical (six) Branch hours. acetaminoph 2020- No [id number] 650mg Take 2 [facility] en 325 mg 9-17 09-18 tablets by ity of tablet 00:00: 04:59 mouth [place] 00 :00 every 6 Medical (six) Branch hours. acetaminoph 2020- No [id number] 650mg Take 2 [facility] en 325 mg 9-17 09-18 tablets by ity of tablet 00:00: 04:59 mouth [place] 00 :00 every 6 Medical (six) Branch hours. acetaminoph 2020- No [id number] 650mg Take 2 [facility] en 325 mg 9-17 09-18 tablets by ity of tablet 00:00: 04:59 mouth [place] 00 :00 every 6 Medical (six) Branch hours. acetaminoph 2020- No [id number] 650mg Take 2 [facility] en 325 mg 9-17 09-18 tablets by ity of tablet 00:00: 04:59 mouth [place] 00 :00 every 6 Medical (six) Branch hours. acetaminoph 2020- No [id number] 650mg Take 2 [facility] en 325 mg 9-17 09-18 tablets by ity of tablet 00:00: 04:59 mouth [place] 00 :00 every 6 Medical (six) Branch hours. acetaminoph 2020- No [id number] 650mg Take 2 [facility] en 325 mg 9-17 09-18 tablets by ity of tablet 00:00: 04:59 mouth [place] 00 :00 every 6 Medical (six) Branch hours. acetaminoph 2020- No [id number] 650mg Take 2 [facility] en 325 mg 9-17 09-18 tablets by ity of tablet 00:00: 04:59 mouth [place] 00 :00 every 6 Medical (six) Branch hours. acetaminoph 2020- No [id number] 650mg Take 2 [facility] en 325 mg 9-17 09-18 tablets by ity of tablet 00:00: 04:59 mouth [place] 00 :00 every 6 Medical (six) Branch hours. acetaminoph 2020- No [id number] 650mg Take 2 [facility] en 325 mg 9-17 09-18 tablets by ity of tablet 00:00: 04:59 mouth [place] 00 :00 every 6 Medical (six) Branch hours. acetaminoph 2020- No [id number] 650mg Take 2 [facility] en 325 mg 9-17 09-18 tablets by ity of tablet 00:00: 04:59 mouth [place] 00 :00 every 6 Medical (six) Branch hours. acetaminoph 2020- No [id number] 650mg Take 2 [facility] en 325 mg 9-17 09-18 tablets by ity of tablet 00:00: 04:59 mouth [place] 00 :00 every 6 Medical (six) Branch hours. acetaminoph 2020- No [id number] 650mg Take 2 [facility] en 325 mg 9-17 09-18 tablets by ity of tablet 00:00: 04:59 mouth [place] 00 :00 every 6 Medical (six) Branch hours. acetaminoph 2020- No [id number] 650mg Take 2 [facility] en 325 mg 9-17 09-18 tablets by ity of tablet 00:00: 04:59 mouth [place] 00 :00 every 6 Medical (six) Branch hours. acetaminoph 2020-2020- No [id number] 650mg Take 2 [facility] en 325 mg 9-17 09-18 tablets by ity of tablet 00:00: 04:59 mouth [place] 00 :00 every 6 Medical (six) Branch hours. acetaminoph 2020-2020- No [id number] 650mg Take 2 [facility] en 325 mg 9-17 09-18 tablets by ity of tablet 00:00: 04:59 mouth [place] 00 :00 every 6 Medical (six) Branch hours. acetaminoph 2020- No [id number] 650mg Take 2 [facility] en 325 mg 9-17 09-18 tablets by ity of tablet 00:00: 04:59 mouth [place] 00 :00 every 6 Medical (six) Branch hours. acetaminoph 2020- No [id number] 650mg Take 2 [facility] en 325 mg 9-17 09-18 tablets by ity of tablet 00:00: 04:59 mouth [place] 00 :00 every 6 Medical (six) Branch hours. acetaminoph 2020- No [id number] 650mg Take 2 [facility] en 325 mg 9-17 09-18 tablets by ity of tablet 00:00: 04:59 mouth [place] 00 :00 every 6 Medical (six) Branch hours. acetaminoph 2020- No [id number] 650mg Take 2 [facility] en 325 mg 9-17 09-18 tablets by ity of tablet 00:00: 04:59 mouth [place] 00 :00 every 6 Medical (six) Branch hours. acetaminoph 2020- No [id number] 650mg Take 2 [facility] en 325 mg 9-17 09-18 tablets by ity of tablet 00:00: 04:59 mouth [place] 00 :00 every 6 Medical (six) Branch hours. acetaminoph 2020- No [id number] 650mg Take 2 [facility] en 325 mg 9-17 09-18 tablets by ity of tablet 00:00: 04:59 mouth [place] 00 :00 every 6 Medical (six) Branch hours. acetaminoph 2020- No [id number] 650mg Take 2 [facility] en 325 mg 9-17 09-18 tablets by ity of tablet 00:00: 04:59 mouth [place] 00 :00 every 6 Medical (six) Branch hours. acetaminoph 20202020- No [id number] 650mg Take 2 [facility] en 325 mg 9-17 09-18 tablets by ity of tablet 00:00: 04:59 mouth [place] 00 :00 every 6 Medical (six) Branch hours. acetaminoph 2020- No [id number] 650mg Take 2 [facility] en 325 mg 9-17 09-18 tablets by ity of tablet 00:00: 04:59 mouth [place] 00 :00 every 6 Medical (six) Branch hours. acetaminoph 20202020- No [id number] 650mg Take 2 [facility] en 325 mg 9-17 09-18 tablets by ity of tablet 00:00: 04:59 mouth [place] 00 :00 every 6 Medical (six) Branch hours. acetaminoph 2020- No [id number] 650mg Take 2 [facility] en 325 mg 9-17 09-18 tablets by ity of tablet 00:00: 04:59 mouth [place] 00 :00 every 6 Medical (six) Branch hours. acetaminoph 2019-2020- No [id number] 650mg Take 2 [facility] en 325 mg 9-17 09-18 tablets by ity of tablet 00:00: 04:59 mouth [place] 00 :00 every 6 Medical (six) Branch hours. acetaminoph 2020- No [id number] 650mg Take 2 [facility] en 325 mg 9-17 09-18 tablets by ity of tablet 00:00: 04:59 mouth [place] 00 :00 every 6 Medical (six) Branch hours. acetaminoph 2019- No [id number] 650mg Take 2 [facility] en 325 mg 9-17 12-16 tablets by ity of tablet 00:00: 00:00 mouth [place] 00 :00 every 6 Medical (six) Branch hours. loperamide 2019-2019- No [id number] 2mg Take 1 [facility] 2 mg 9-17 11-04 capsule by ity of capsule 00:00: 00:00 mouth [place] 00 :00 daily. Medical Branch HYDROmorpho 2019-2019- No [id number] 2mg Take 1 Uni vers [...] Medi ryann (8 %) IV 07/31/20 at [facility] h Piggyback 4 0730, g Routine [...] 2 mg 43 :45 Starting Medi ryann [facility] Branch 07/30/20 at 0828, Until Beth 08/01/20 at 0654, Routine, Pain (scale 7-10) metoprolol [...] lactated 2020-0 2020- No 1000mL at 999 [facility] ers ringers IV 07-29 mL/hr, ity of infusion 22:30: 22:14 1,000 mL, Juan as 1,000 mL 00 :00 Intravenou Medic al s, ONCE, 1 Branch dose, Wed07/29/20 at 1730, Routine ibuprofen 2020-0 Yes 600mg 600 mg, Univ ers (IBU) 07-29 Oral, Q6H ity of tablet 600 17:00: ABX, First [place] mg 00 dose on Medical [facility] 07/29/20 at 1200, Until Discontinu ed, Routine NaCl 0.9% 2020-0 Yes 10mL 10 mL, Univer s (NS) 07-29 Slow IV ity of injection 15:59: Push, PRN, [place] 10 mL 00 Starting Medical [facility] 07/29/20 at 1059, Until Discontinu ed, Routine, line maintenanc e lidocaine 2020-0 Yes 5mL 5 mL, Univers 1% (PF) 07-29 Subcutaneo ity of (XYLOCAINE) 15:59: us, PRN, [place] injection 5 00 Starting Medi ryann mL [facility] 07/29/20 at 1059, Until Discontinu ed, [...] 650 00 dose on Medica l mg [facility] 07/29/20 at 0900, Until Discontinu ed, [...] (after Medical last Branch modificati on) on [place] 07/28/20 at 2000, Until Discontinu ed, Routine methocarbam 2020-0 2020- No 1g 1,000 mg U nivers oL 07-28 (1 g), IV ity of (ROBAXIN) 22:00: 21:57 Piggyback, [place] 1,000 mg in 00 :00 ONCE, 1 Medic al NaCl 0.9% dose, [facility] h (NS) 07/28/20 at piggyback 1700, 100 mL acetaminoph 2020-0 2020- No 1000mg 1,000 mg, Univers en ADULT 07-28 IV ity of (OFIRMEV) 15:00: 08:16 Infusion, [place] injection 00 :00 Administer Medi ryann 1,000 mg over 15 Branch Minutes, Q8H ABX, 3 doses, First dose (after last reorder) on [place] 07/28/20 at 1000, Last dose on [facility] 07/29/20 at 0200, Routine
Indicatio n: Non-periop erative Patient
Approved by: Per Policy (NPO Status) ALPRAZolam 2019-0 2020- No .5mg 0.5 mg, Uni vers (XANAX) 07-28 Oral, PRN, ity o f tablet 0.5 13:53: 16:59 1 dose, [place] mg 25 :00 Starting [facility] 07/28/20 at 0853, Until Discontinu ed, Routine, anxiety ALPRAZolam 2019-0 Yes 1mg 1 mg, Univer s (XANAX) 07-28 Oral, ity of tablet 1 mg 13:52: QHSPRN, [place] 54 Starting [facility] 07/28/20 at 0852, Until Discontinu ed, Routine, [...] 40 mg 00 First dose Medical on Wed Branch 07/26/20 at 0900, Until Discontinu ed, Routine magnesium 2019- 2020- No 2g 2 g, IV Univ ers sulfate in 07-26 Piggyback, it y of water 2 13:00: 23:17 ONCE, 1 [place] gram/50 mL 00 :00 dose, Fri Medi ryann (4 %) 07/26/20 at Branch infusion 2 0800, g Routine proCHLORper 0 Yes 10mg 10 mg, IV U nivers [...] ity of (fixed 00:45: 12:37 [place] dose) 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
Us e approved by (Faculty): PAIN SERVICE acetaminoph 2019- No 1000mg 1,000 mg, Univers en ADULT 07-26 IV ity of ([facility]) 00:21: 00:44 Infusion, [place] injection [...] at 1836, Until Discontinu ed, Routine acetaminoph 2019- No 1000mg 1,000 mg, Univers en ADULT 07-25 IV ity of ([facility]) 12:45: 12:44 Infusion, [place] injection 00 :00 Administer Medi ryann 1,000 mg over 15 Branch Minutes, Q8H ABX, 3 doses, First dose (after last reorder) on [place] 07/25/20 at 0745, Last dose on [place] 07/25/20 at 2345, Routine
Indicatio n: Non-periop erative Patient
Approved by: Per Policy (NPO Status) pantoprazol 2019- No 40mg 40 mg, IV Univers e 07-24 Piggyback, ity of (PROTONIX) 13:00: 12:38 Q12H, [place] 40 mg in 00 :10 First dose Medic al NaCl 0.9% on Wed Branch (NS) 100 mL 07/24/20 at MINI-BAG 0800, Until Discontinu ed, 100 mL metoprolol 2019- No 25mg 25 mg, Univ ers tartrate 07-24 Oral, BID, ity of (LOPRESSOR) 13:00: 23:37 First dose [place] tablet 25 00 :55 on Wed Medical mg 07/24/20 at Branch 0800, Until Discontinu ed, Routine acetaminoph 2020- No [...] Branch , Starting Wed07/24/20 at 0130, Until [place] 07/28/20 at 0739, Routine morpHINE 2019- 2020- No 4mg 4 mg, Slow Un thor injection 4 07-24 IV Push, ity of mg 06:19: 14:48 Q3HPRN, [place] 51 :46 Starting Medical [facility] 07/24/20 Branch at 0119, Until [place] 07/28/20 at 0948, Routine, Pain (scale 7-10) morpHINE 2019-0 2020- No 4mg 4 mg, Slow Un thor injection 4 07-24 IV Push, ity of mg 03:45: 02:42 ONCE, 1 [place] 00 :[facility] 2245, STAT NaCl 0.9% 2020-0 2020- No 500mL at 999 Univ ers (NS) bolus 07-24 mL/hr, 500 it y of infusion 03:45: 03:41 mL, IV [place] 500 mL 00 :00 Infusion, [facility] ONCE, 1 [place] dose, Tu 07/23/20 at 2245, STAT NaCl 0.9% 2019-0 2020- No 1000mL at 150 Uni vers (NS) IV 07-24 mL/hr, ity of infusion 03:45: 09:49 Intravenou [place] 1,000 mL 00 :01 s, Medical CONTINUOUS [place] , Starting Tu07/23/20 at 2245, Until 07/24/20 at 0449, Routine proMETHazin 2019- 2020- No 12.5mg 12.5 mg, Univers e 07-24 IV ity of (PHENERGAN) 01:30: 01:30 Piggyback, [place] 12.5 mg in 00 :00 ONCE, 1 Medica l NaCl 0.9% dose, [facility] h (NS) 50 mL 07/23/20 at piggyback 2029, 50 mL morpHINE 2019-0 2020- No 4mg 4 mg, Slow Un thor injection 4 07-24 IV Push, ity of mg 01:15: 00:22 ONCE, 1 [place] 00 :00 dose, [facility] 07/23/20 at Branch 2015, STAT morpHINE 2020-0 2020- No 4mg 4 mg, Slow Un thor injection 4 07-23 IV Push, ity of mg 22:30: 21:20 ONCE, 1 [place] 00 :00 dose, [facility] 07/23/20 at Branch 1730, STAT piperacilli 2019-0 2020- No 3.375g 3.375 g, Univers n-tazobacta 07-23 IV ity of m (ZOSYN) 22:30: 22:14 Piggyback, [place] 3.375 g in 00 :00 ONCE, 1 Medica l NaCl 0.9% dose, [facility] h (NS) 100 mL 07/23/20 at MINI-BAG 1730, 100 mL
Reas on for Anti-Infec tive: Documented Infection< br>Documen carl Infection Site: Abdominal< br>Duratio n of Therapy: 7 days iohexol 2019-0 2020- No 114mL 114 mL, Unive rs (OMNIPAQUE 07-23 Intravenou it y of 350 20:46: 20:47 s, ONCE, 1 [place] BULK-150 00 :00 dose, Tue Medica l mL) 07/23/20 at Branch injection 1600, 114 mL Routine methylPREDN 2019-0 2020- No 40mg 40 mg, IV Univers ISolone sod 07-23 Piggyback, i ty of succ 19:15: 19:10 ONCE, 1 [place] (SOLU-MEDRO 00 :00 dose, Tue Med ical [...] of mg 19:15: 18:59 ONCE, 1 [place] 00 :00 dose, Tue Medical 07/23/20 at Branch 1415, STAT famotidine 2020- No 20mg 20 mg, [facility] ers (PEPCID 07-23 Intravenou ity o f (PF)) 18:45: 19:02 s, ONCE, 1 [place] injection 00 :00 dose, Tue Medic al 20 mg 07/23/20 at Branch 1345, LUISA proMETHazin 2019- 2020- No 12.5mg 12.5 mg, Univers e 07-23 IV ity of (PHENERGAN) 18:45: 19:01 Piggyback, [place] 12.5 mg in 00 :00 ONCE, 1 Medica l NaCl 0.9% dose, [facility] Branc h (NS) 50 mL 07/23/20 at [...] daily. Branch ease suspension metoprolol 2018-11 Yes [id number] 25mg Take 1 Un thor tartrate 25 0-10 tablet by ity of mg tablet 00:00: mouth 2 [place] 00 (two) Medical times Branch daily. metoprolol 2018-11 Yes [id number] 25mg Take 1 Un thor tartrate 25 0-10 tablet by ity of mg tablet 00:00: mouth 2 [place] 00 (two) Medical times Branch daily. metoprolol 2018-11 Yes [id number] 25mg Take 1 Un thor tartrate 25 0-10 tablet by ity of mg tablet 00:00: mouth 2 [place] 00 (two) Medical times Branch daily. acetaminoph 2018-11 Yes [id number] 1{tbl} Take 1 Univers en-codeine 0-10 tablet by ity of (TYLENOL-CO 00:00: mouth [place] DEINE #4) 00 every 4 Medical 300-60 mg (four) Branch tablet hours as needed for Pain. levoFLOXaci 2018-11 Yes [id number] 750mg Take 1 Univers n 750 mg 0-10 tablet by ity of tablet 00:00: mouth [place] 00 every 24 Medical (twenty-fo Branch ur) hours. metoprolol 2018-11 Yes [id number] 25mg Take 1 Un thor tartrate 25 0-10 tablet by ity of mg tablet 00:00: mouth 2 [place] 00 (two) Medical times Branch daily. metoprolol 2018-11 Yes [id number] 25mg Take 1 Un thor tartrate 25 0-10 tablet by ity of mg tablet 00:00: mouth (two) Medical times Branch daily. metoprolol 2018-11 Yes [id number] 25mg Take 1 Un thor tartrate 25 0-10 tablet by ity of mg tablet 00:00: mouth (two) Medical times Branch daily. metoprolol 2018-11 Yes [id number] 25mg Take 1 Un thor tartrate 25 0-10 tablet by ity of mg tablet 00:00: mouth (two) Medical times Branch daily. metoprolol 2018-11 Yes [id number] 25mg Take 1 Un thor tartrate 25 0-10 tablet by ity of mg tablet 00:00: mouth (two) Medical times Branch daily. metoprolol 2018-11 Yes [id number] 25mg Take 1 Un thor tartrate 25 0-10 tablet by ity of mg tablet 00:00: mouth (two) Medical times Branch daily. metoprolol 2018-11 Yes [id number] 25mg Take 1 Un thor tartrate 25 0-10 tablet by ity of mg tablet 00:00: mouth (two) Medical times Branch daily. metoprolol 2018-11 Yes [id number] 25mg Take 1 Un thor tartrate 25 0-10 tablet by ity of mg tablet 00:00: mouth (two) Medical times Branch daily. metoprolol 2018-11 Yes [id number] 25mg Take 1 Un thor tartrate 25 0-10 tablet by ity of mg tablet 00:00: mouth (two) Medical times Branch daily. metoprolol 2018-11 Yes [id number] 25mg Take 1 Un thor tartrate 25 0-10 tablet by ity of mg tablet 00:00: mouth (two) Medical times Branch daily. metoprolol 2018-11 Yes [id number] 25mg Take 1 Un thor tartrate 25 0-10 tablet by ity of mg tablet 00:00: mouth (two) Medical times Branch daily. metoprolol 2018-11 Yes [id number] 25mg Take 1 Un thor tartrate 25 0-10 tablet by ity of mg tablet 00:00: mouth (two) Medical times Branch daily. metoprolol 2018-11 Yes [id number] 25mg Take 1 Un thor tartrate 25 0-10 tablet by ity of mg tablet 00:00: mouth (two) Medical times Branch daily. metoprolol 2018-11 Yes [id number] 25mg Take 1 Un thor tartrate 25 0-10 tablet by ity of mg tablet 00:00: mouth (two) Medical times Branch daily. metoprolol 2018-11 Yes [id number] 25mg Take 1 Un thor tartrate 25 0-10 tablet by ity of mg tablet 00:00: mouth (two) Medical times Branch daily. metoprolol 2018-11 Yes [id number] 25mg Take 1 Un thor tartrate 25 0-10 tablet by ity of mg tablet 00:00: mouth (two) Medical times Branch daily. metoprolol 2018-11 Yes [id number] 25mg Take 1 Un thor tartrate 25 0-10 tablet by ity of mg tablet 00:00: mouth (two) Medical times Branch daily. metoprolol 2018-11 Yes [id number] 25mg Take 1 Un thor tartrate 25 0-10 tablet by ity of mg tablet 00:00: mouth (two) Medical times Branch daily. metoprolol 2018-11 Yes [id number] 25mg Take 1 Un thor tartrate 25 0-10 tablet by ity of mg tablet 00:00: mouth (two) Medical times Branch daily. metoprolol 2018-11 Yes [id number] 25mg Take 1 Un thor tartrate 25 0-10 tablet by ity of mg tablet 00:00: mouth (two) Medical times Branch daily. metoprolol 2018-11 Yes [id number] 25mg Take 1 Un thor tartrate 25 0-10 tablet by ity of mg tablet 00:00: mouth (two) Medical times Branch daily. metoprolol 2018-11 Yes [id number] 25mg Take 1 Un thor tartrate 25 0-10 tablet by ity of mg tablet 00:00: mouth (two) Medical times Branch daily. metoprolol 2018-11 Yes [id number] 25mg Take 1 Un thor tartrate 25 0-10 tablet by ity of mg tablet 00:00: mouth (two) Medical times Branch daily. metoprolol 2018-11 Yes [id number] 25mg Take 1 Un thor tartrate 25 0-10 tablet by ity of mg tablet 00:00: mouth (two) Medical times Branch daily. metoprolol 2018-11 Yes [id number] 25mg Take 1 Un thor tartrate 25 0-10 tablet by ity of mg tablet 00:00: mouth (two) Medical times Branch daily. metoprolol 2018-11 Yes [id number] 25mg Take 1 Un thor tartrate 25 0-10 tablet by ity of mg tablet 00:00: mouth (two) Medical times Branch daily. metoprolol 2018-11 Yes [id number] 25mg Take 1 Un thor tartrate 25 0-10 tablet by ity of mg tablet 00:00: mouth (two) Medical times Branch daily. metoprolol 2018-11 Yes [id number] 25mg Take 1 Un thor tartrate 25 0-10 tablet by ity of mg tablet 00:00: mouth (two) Medical times Branch daily. metoprolol 2018-11 Yes [id number] 25mg Take 1 Un thor tartrate 25 0-10 tablet by ity of mg tablet 00:00: mouth (two) Medical times Branch daily. metoprolol 2018-11 Yes [id number] 25mg Take 1 Un thor tartrate 25 0-10 tablet by ity of mg tablet 00:00: mouth (two) Medical times Branch daily. metoprolol 2018-11 Yes [id number] 25mg Take 1 Un thor tartrate 25 0-10 tablet by ity of mg tablet 00:00: mouth (two) Medical times Branch daily. metoprolol 2018-11 Yes [id number] 25mg Take 1 Un thor tartrate 25 0-10 tablet by ity of mg tablet 00:00: mouth (two) Medical times Branch daily. metoprolol 2018-11 Yes [id number] 25mg Take 1 Un thor tartrate 25 0-10 tablet by ity of mg tablet 00:00: mouth (two) Medical times Branch daily. metoprolol 2018-11 Yes [id number] 25mg Take 1 Un thor tartrate 25 0-10 tablet by ity of mg tablet 00:00: mouth (two) Medical times Branch daily. metoprolol 2019-1 Yes [id number] 25mg Take 1 Un thor tartrate 25 0-10 tablet by ity of mg tablet 00:00: mouth [place] (two) Medical times Branch daily. metoprolol 2018-11 Yes [id number] 25mg Take 1 Un thor tartrate 25 0-10 tablet by ity of mg tablet 00:00: mouth 2 [place] (two) Medical times Branch daily. metoprolol 2018-11 Yes [id number] 25mg Take 1 Un thor tartrate 25 0-10 tablet by ity of mg tablet 00:00: mouth [place] (two) Medical times Branch daily. metoprolol 2018-11 Yes [id number] 25mg Take 1 Un thor tartrate 25 0-10 tablet by ity of mg tablet 00:00: mouth [place] (two) Medical times Branch daily. metoprolol 2018-11 Yes [id number] 25mg Take 1 Un thor tartrate 25 0-10 tablet by ity of mg tablet 00:00: mouth [place] (two) Medical times Branch daily. metoprolol 2018-11 Yes [id number] 25mg Take 1 Un thor tartrate 25 0-10 tablet by ity of mg tablet 00:00: mouth [place] (two) Medical times Branch daily. metoprolol 2018-11 Yes [id number] 25mg Take 1 Un thor tartrate 25 0-10 tablet by ity of mg tablet 00:00: mouth [place] (two) Medical times Branch daily. metoprolol 2018-11 2020- No [id number] 25mg Take 1 U nivers tartrate 25 0-10 12-16 tablet by it y of mg tablet 00:00: 00:00 mouth 2 [place] 00 :00 (two) Medical times Branch daily. acetaminoph 2018-11 2020- No [id number] 1{tbl} Take 1 Univers en-codeine 0-10 09-17 tablet by ity of (TYLENOL-CO 00:00: 00:00 mouth [place] DEINE #4) 00 :00 every 4 Medical 300-60 mg (four) Branch tablet hours as needed for Pain. levoFLOXaci 2018-11 2020- No [id number] 750mg Take 1 Univers n 750 mg 0-10 09-17 tablet by ity o f tablet 00:00: 00:00 mouth [place] 00 :00 every 24 Medical (twenty-fo Branch ur) hours. proMETHazin 2018-11 Yes [id number] 25mg Take 1 Univers e 25 mg 0-04 tablet by ity of tablet 00:00: mouth [place] 00 every 6 Medical (six) Branch hours as needed for Nausea and Vomiting (N/V). proMETHazin 2018-11 Yes [id number] 25mg Take 1 Univers e 25 mg 0-04 tablet by ity of tablet 00:00: mouth [place] 00 every 6 Medical (six) Branch hours as needed for Nausea and Vomiting (N/V). proMETHazin 2018-11 Yes [id number] 25mg Take 1 Univers e 25 mg 0-04 tablet by ity of tablet 00:00: mouth [place] 00 every 6 Medical (six) Branch hours as needed for Nausea and Vomiting (N/V). proMETHazin 2018-11 Yes [id number] 25mg Take 1 Univers e 25 mg 0-04 tablet by ity of tablet 00:00: mouth [place] 00 every 6 Medical (six) Branch hours as needed for Nausea and Vomiting (N/V). proMETHazin 2018-11 Yes [id number] 25mg Take 1 Univers e 25 mg 0-04 tablet by ity of tablet 00:00: mouth [place] 00 every 6 Medical (six) Branch hours as needed for Nausea and Vomiting (N/V). proMETHazin 2018-11 Yes [id number] 25mg Take 1 Univers e 25 mg 0-04 tablet by ity of tablet 00:00: mouth [place] 00 every 6 Medical (six) Branch hours as needed for Nausea and Vomiting (N/V). proMETHazin 2018-11 Yes [id number] 25mg Take 1 Univers e 25 mg 0-04 tablet by ity of tablet 00:00: mouth [place] 00 every 6 Medical (six) Branch hours as needed for Nausea and Vomiting (N/V). proMETHazin 2018-11 Yes [id number] 25mg Take 1 Univers e 25 mg 0-04 tablet by ity of tablet 00:00: mouth [place] 00 every 6 Medical (six) Branch hours as needed for Nausea and Vomiting (N/V). proMETHazin 2018-11 Yes [id number] 25mg Take 1 Univers e 25 mg 0-04 tablet by ity of tablet 00:00: mouth [place] 00 every 6 Medical (six) Branch hours as needed for Nausea and Vomiting (N/V). proMETHazin 2018-11 Yes [id number] 25mg Take 1 Univers e 25 mg 0-04 tablet by ity of tablet 00:00: mouth [place] 00 every 6 Medical (six) Branch hours as needed for Nausea and Vomiting (N/V). proMETHazin 2018-11 Yes [id number] 25mg Take 1 Univers e 25 mg 0-04 tablet by ity of tablet 00:00: mouth [place] 00 every 6 Medical (six) Branch hours as needed for Nausea and Vomiting (N/V). proMETHazin 2018-11 Yes [id number] 25mg Take 1 Univers e 25 mg 0-04 tablet by ity of tablet 00:00: mouth [place] 00 every 6 Medical (six) Branch hours as needed for Nausea and Vomiting (N/V). proMETHazin 2018-11 Yes [id number] 25mg Take 1 Univers e 25 mg 0-04 tablet by ity of tablet 00:00: mouth [place] 00 every 6 Medical (six) Branch hours as needed for Nausea and Vomiting (N/V). proMETHazin 2018-11 Yes [id number] 25mg Take 1 Univers e 25 mg 0-04 tablet by ity of tablet 00:00: mouth [place] 00 every 6 Medical (six) Branch hours as needed for Nausea and Vomiting (N/V). proMETHazin 2018-11 Yes [id number] 25mg Take 1 Univers e 25 mg 0-04 tablet by ity of tablet 00:00: mouth [place] 00 every 6 Medical (six) Branch hours as needed for Nausea and Vomiting (N/V). proMETHazin 2018-11 Yes [id number] 25mg Take 1 Univers e 25 mg 0-04 tablet by ity of tablet 00:00: mouth [place] 00 every 6 Medical (six) Branch hours as needed for Nausea and Vomiting (N/V). proMETHazin 2018-11 Yes [id number] 25mg Take 1 Univers e 25 mg 0-04 tablet by ity of tablet 00:00: mouth [place] 00 every 6 Medical (six) Branch hours as needed for Nausea and Vomiting (N/V). proMETHazin 2018-11 Yes [id number] 25mg Take 1 Univers e 25 mg 0-04 tablet by ity of tablet 00:00: mouth [place] 00 every 6 Medical (six) Branch hours as needed for Nausea and Vomiting (N/V). proMETHazin 2018-11 Yes [id number] 25mg Take 1 Univers e 25 mg 0-04 tablet by ity of tablet 00:00: mouth [place] 00 every 6 Medical (six) Branch hours as needed for Nausea and Vomiting (N/V). proMETHazin 2018-11 Yes [id number] 25mg Take 1 Univers e 25 mg 0-04 tablet by ity of tablet 00:00: mouth [place] 00 every 6 Medical (six) Branch hours as needed for Nausea and Vomiting (N/V). proMETHazin 2018-11 Yes [id number] 25mg Take 1 Univers e 25 mg 0-04 tablet by ity of tablet 00:00: mouth [place] 00 every 6 Medical (six) Branch hours as needed for Nausea and Vomiting (N/V). proMETHazin 2018-11 Yes [id number] 25mg Take 1 Univers e 25 mg 0-04 tablet by ity of tablet 00:00: mouth [place] 00 every 6 Medical (six) Branch hours as needed for Nausea and Vomiting (N/V). proMETHazin 2018-11 Yes [id number] 25mg Take 1 Univers e 25 mg 0-04 tablet by ity of tablet 00:00: mouth [place] 00 every 6 Medical (six) Branch hours as needed for Nausea and Vomiting (N/V). proMETHazin 2018-11 Yes [id number] 25mg Take 1 Univers e 25 mg 0-04 tablet by ity of tablet 00:00: mouth [place] 00 every 6 Medical (six) Branch hours as needed for Nausea and Vomiting (N/V). proMETHazin 2018-11 Yes [id number] 25mg Take 1 Univers e 25 mg 0-04 tablet by ity of tablet 00:00: mouth [place] 00 every 6 Medical (six) Branch hours as needed for Nausea and Vomiting (N/V). proMETHazin 2018-11 Yes [id number] 25mg Take 1 Univers e 25 mg 0-04 tablet by ity of tablet 00:00: mouth [place] 00 every 6 Medical (six) Branch hours as needed for Nausea and Vomiting (N/V). proMETHazin 2018-11 2020- No [id number] 25mg Take 1 Univers e 25 mg [...] Beth Medica l NaCl 0.9% 06/15/19 at [facility] h (NS) 50 mL 1515, 50 piggyback mL morpHINE 2018- No 4mg 4 mg, Slow Un thor injection 4 06-15 IV Push, ity of mg 20:15: 19:30 ONCE, 1 [place] 00 :00 dose, [facility] Medical 06/15/19 at Branch 1515, STAT [...] :00 ONCE, 1 Medical 25 mg dose, [facility] 06/15/19 at 1345, STAT famotidine 2018- No 20mg 20 mg, Univ ers (PEPCID 06-15 Slow IV ity of (PF)) 18:45: 17:47 Push, [place] injection 00 :00 ONCE, 1 Medical 20 mg dose, [facility] Branch 06/15/19 at 1345, LUISA morpHINE [...] [place] 06/15/19 at 1200, LUISA proMETHazin Yes [id number] 25mg Take 1 U nivers e 25 mg 06-15 tablet by ity of tablet 00:00: mouth [place] 00 every 6 Medical (six) Branch hours as needed for Nausea and Vomiting (N/V). famotidine 2019- No [id number] 40mg Take 1 U nivers 40 mg 06-15 tablet by ity of tablet 00:00: 04:59 mouth [place] 00 :00 daily for Medical 14 days. Branch predniSONE Yes [id number] Take 1 U nivers 10 mg 4-26 tablet ity of tablet 00:00: daily. [place] 00 Medical Branch proMETHazin Yes [id number] 25mg Insert 1 Univers e 25 mg [...] 20 mg 31 delayed release tablet pantoprazol 2015-0 Yes 20mg QD Take 20 mg [place] e 9-23 by mouth Health (PROTONIX) 23:40: daily. 20 mg 31 delayed release tablet pantoprazol 2015-0 Yes 20mg QD Take 20 mg [place] e 9-23 by mouth Health (PROTONIX) 23:40: daily. 20 mg 31 delayed release tablet pantoprazol 2015-0 Yes 20mg QD Take 20 mg [place] [...] -acetaminop 0-22 abscess tablet by Health hen ([employer]) 00:00: mouth 10-325 mg 00 every 6 tablet hours as needed for Pain. HYDROcodone 2012-11 Yes Periapical 1{tbl} Take 1 [place] -acetaminop 0-22 abscess tablet by Health hen ([employer]) 00:00: mouth 10-325 mg 00 every 6 tablet hours as needed for Pain. HYDROcodone 2012-11 Yes Periapical 1{tbl} Take 1 [place] -acetaminop 0-22 abscess tablet by Health hen ([employer]) 00:00: mouth 10-325 mg 00 every 6 tablet hours as needed for Pain. HYDROcodone 2012-11 Yes Periapical 1{tbl} Take 1 [place] -acetaminop 0-22 abscess tablet by Health hen ([employer]) 00:00: mouth 10-325 mg 00 every 6 tablet hours as needed for Pain. HYDROcodone 2012-11 Yes Caries 1{tbl} Take 1 [place] -acetaminop 0-21 tablet by [facility] hen ([employer]) 00:00: mouth 5-325 mg 00 every 6 tablet hours as needed for Pain. HYDROcodone 2012-11 Yes [place] 1{tbl} Take 1 [place] -acetaminop 0-21 tablet by a lt hen ([employer]) 00:00: mouth 5-325 mg 00 every 6 tablet hours as needed for Pain. HYDROcodone 2012-11 Yes [place] 1{tbl} Take 1 [place] -acetaminop 0-21 tablet by [facility] hen ([employer]) 00:00: mouth 5-325 mg 00 every 6 tablet hours as needed for Pain. HYDROcodone 2012-11 Yes [place] 1{tbl} Take 1 [place] -acetaminop 0-21 tablet by a lt hen ([employer]) 00:00: mouth 5-325 mg 00 every 6 tablet hours as needed for Pain. proMETHazin 2010-11 Yes [id number] 12.5mg Take 1 Tab Univers e 2-23 by mouth ity of (PHENERGAN) 00:00: every 6 [place] 12.5 mg 00 (six) Medical tablet hours as Branch needed for Nausea and Vomiting. Vital Signs Vital Name Observation Time Observation Value Comments Source Systolic blood 2020-10-30 92 mm[Hg] University of pressure 22:01:00 [place] [facility] Diastolic blood 2020-10-30 65 mm[Hg] University o f pressure 22:01:00 [facility] Branch Heart rate 2020-10-30 104 /min University of 22:01:00 [facility] Branch Body temperature 2020-10-30 36.83 [place] University of 22:01:00 [place] [facility] Respiratory rate 2020-10-30 18 /min University of 22:01:00 [facility] Branch Oxygen saturation 2020-10-30 96 /min University of in Arterial blood 22:01:00 [place] Medi ryann by Pulse oximetry Branch Body weight 2020-10-24 61.2 kg University of 19:35:00 [facility] Branch BMI 2020-10-24 21.13 kg/m2 University of 19:35:00 [facility] Branch Systolic blood 2020-10-30 92 mm[Hg] University of pressure 22:01:00 [facility] Branch Diastolic blood 2020-10-30 65 mm[Hg] University o f pressure 22:01:00 [facility] Branch Heart rate 2020-10-30 104 /min University of :01:00 [facility] Body temperature 2020-10-30 36.83 [place] University of 22:01:00 [facility] Branch Respiratory rate 2020-10-30 18 /min University of 22:01:00 [facility] Branch Oxygen saturation 2020-10-30 96 /min University of in Arterial blood 22:01:00 [place] Medi ryann by Pulse oximetry Branch Body weight 2020-10-24 61.2 kg University of 19:35:00 [facility] BMI 2020-10-24 21.13 kg/m2 University of 19:35:00 [facility] Systolic blood 2020-10-19 92 mm[Hg] University of pressure 19:08:00 [place] [facility] Branch Diastolic blood 2020-10-19 63 mm[Hg] University o f pressure 19:08:00 [facility] Branch Heart rate 2020-10-19 98 /min University of 19:08:00 [facility] Body temperature 2020-10-19 36.17 Tayla University of 19:08:00 [facility] Respiratory rate 2020-10-19 18 /min University of 19:08:00 [facility] Oxygen saturation 2020-10-19 100 /min University of in Arterial blood 19:08:00 [place] [facility] by Pulse oximetry Branch Body height 2020-10-14 170.2 cm University of :21:00 [facility] Body weight 2020-10-14 55.1 kg University of 12:21: [facility] BMI 2020-10-14 19.03 kg/m2 University of 12:21:00 [facility] Systolic blood 2020-10-19 92 mm[Hg] University of pressure 19:08:00 [facility] Diastolic blood 2020-10-19 63 mm[Hg] University o f pressure 19:08:00 [facility] Heart rate 2020-10-19 98 /min University of 19:08:00 [facility] Body temperature 2020-10-19 36.17 Tayla University of 19:08:00 [facility] Respiratory rate 2020-10-19 18 /min University of 19:08:00 [facility] Oxygen saturation 2020-10-19 100 /min University of in Arterial blood 19:08:00 [facility] ryann by Pulse oximetry Branch Body height 2020-10-14 170.2 cm University of 12:21:00 [facility] Body weight 2020-10-14 55.1 kg University of 12:21:00 [facility] BMI 2020-10-14 19.03 kg/m2 University of 12:21:00 [facility] Respiratory rate 2020-10-02 20 /min University of 06:35:00 [facility] Oxygen saturation 2020-10-02 97 /min University of in Arterial blood 06:35:00 [facility] by Pulse oximetry Branch Systolic blood 2020-10-02 122 mm[Hg] University of pressure 04:53:00 [facility] Diastolic blood 2020-10-02 88 mm[Hg] University o f pressure 04:53:00 [facility] Heart rate 2020-10-02 133 /min University of 04:53:00 [facility] Body temperature 2020-10-02 37.28 Tayla University of 04:53:00 [facility] Body height 2020-10-02 170 cm University of 04:53:00 [facility] Body weight 2020-10-02 58.968 kg University of 04:53:00 [facility] BMI 2020-10-02 20.40 kg/m2 University of 04:53:00 [facility] Systolic blood 2020-09-27 98 mm[Hg] University of pressure 15:38:00 [facility] Diastolic blood 2020-09-27 64 mm[Hg] University o f pressure 15:38:00 [facility] Heart rate 2020-09-27 86 /min University of 15:38:00 [facility] Body temperature 2020-09-27 37.06 Tayla University of 15:38:00 [facility] Body height 2020-09-27 170.2 cm University of 15:38:00 [facility] Body weight 2020-09-27 59.104 kg University of 15:38:00 [facility] BMI 2020-09-27 20.41 kg/m2 University of 15:38:00 [facility] Oxygen saturation 2020-09-27 100 /min University of in Arterial blood 15:38:00 [place] [facility] by Pulse oximetry [facility] Systolic blood 2020-09-18 106 mm[Hg] University of pressure 21:45:00 [facility] Diastolic blood 2020-09-18 68 mm[Hg] University o f pressure 21:45:00 [facility] Heart rate 2020-09-18 101 /min University of 21:45:00 [facility] Body temperature 2020-09-18 36.22 Tayla University of 21:45:00 [facility] Respiratory rate 2020-09-18 18 /min University of 21:45:00 [facility] Oxygen saturation 2020-09-18 98 /min University of in Arterial blood 21:45:00 [facility] by Pulse oximetry Branch Body weight 2020-09-18 61.236 kg With one University of 10:59:00 blanket and [facility] Branch BMI 2020-09-18 21.14 kg/m2 University of 10:59:00 [facility] Body height 2020-09-13 170.2 cm University of 20:47:00 [facility] Systolic blood 2020-09-01 129 mm[Hg] University of pressure 11:00:00 [facility] Diastolic blood 2020-09-01 86 mm[Hg] University o f pressure 11:00:00 [facility] Heart rate 2020-09-01 102 /min University of 11:00:00 [facility] Body temperature 2020-09-01 37.67 Tayla University of 10:00:00 [facility] Respiratory rate 2020-09-01 18 /min University of 10:00:00 [facility] Oxygen saturation 2020-09-01 100 /min University of in Arterial blood 10:00:00 [facility] ryann by Pulse oximetry Branch Body weight 2020-09-01 58.968 kg University of 06:45:00 [facility] BMI 2020-09-01 20.36 kg/m2 University of 06:45:00 [facility] Systolic blood 2020-08-24 124 mm[Hg] University of pressure 00:00:00 [facility] [place] [facility] Diastolic blood 2020-08-24 90 mm[Hg] University o f pressure 00:00:00 [facility] Heart rate 2020-08-24 89 /min University of 00:00:00 [facility] Respiratory rate 2020-08-24 20 /min University of 00:00:00 [facility] Oxygen saturation 2020-08-24 100 /min University of in Arterial blood 00:00:00 [place] [facility] by Pulse oximetry [facility] Body temperature 2020-08-23 36.61 Tayla University of 22:27:00 [facility] [place] [facility] Body weight 2020-08-23 58.968 kg University of 22:27:00 [facility] BMI 2020-08-23 20.36 kg/m2 University of 22:27:00 [facility] Systolic blood 2020-08-20 117 mm[Hg] University of pressure 16:22:00 [facility] Diastolic blood 2020-08-20 86 mm[Hg] University o f pressure 16:22:00 [facility] Heart rate 2020-08-20 129 /min University of 16:22:00 [facility] Body temperature 2020-08-20 36.89 Tayla University of 16:21:00 [facility] Respiratory rate 2020-08-20 16 /min University of 16:21:00 [facility] Body height 2020-08-20 170.2 cm University of 16:21:00 [facility] Body weight 2020-08-20 57.607 kg University of 16:21:00 [facility] BMI 2020-08-20 19.89 kg/m2 University of 16:21:00 [facility] Systolic blood 2020-08-18 115 mm[Hg] University of pressure 04:00:00 [facility] Diastolic blood 2020-08-18 79 mm[Hg] University o f pressure 04:00:00 [facility] Heart rate 2020-08-18 104 /min University of 04:00:00 [facility] [place] [facility] Respiratory rate 2020-08-18 17 /min University of 04:00:00 [facility] Oxygen saturation 2020-08-18 100 /min University of in Arterial blood 04:00:00 [place] [facility] Pulse oxim[facility] Body temperature 2020-08-18 37.06 Tayla University of 00:44:00 [facility] [place] [facility] Body weight 2020-08-18 56.7 kg University of 00:44:00 [facility] BMI 2020-08-18 19.58 kg/m2 University of 00:44:00 [facility] Systolic blood 2020-08-09 153 mm[Hg] University of pressure 15:40:00 [facility] Diastolic blood 2020-08-09 83 mm[Hg] University o f pressure 15:40:00 [facility] Heart rate 2020-08-09 143 /min University of 15:40:00 [facility] Body temperature 2020-08-09 36.83 Tayla University of 15:40:00 [facility] Body height 2020-08-09 170.2 cm University of 15:40:00 [facility] Body weight 2020-08-09 56.473 kg University of 15:40:00 [facility] BMI 2020-08-09 19.50 kg/m2 University of 15:40:00 [facility] Oxygen saturation 2020-08-09 100 /min University of in Arterial blood 15:40:00 [facility] ryann by Pulse oximetry Branch Systolic blood 2020-08-01 126 mm[Hg] University of pressure 13:03:00 [facility] Diastolic blood 2020-08-01 76 mm[Hg] University o f pressure 13:03:00 [facility] Heart rate 2020-08-01 119 /min University of 13:03:00 [facility] Body temperature 2020-08-01 36.67 Tayla University of 13:03:00 [facility] Respiratory rate 2020-08-01 16 /min University of 13:03:00 [facility] Oxygen saturation 2020-08-01 99 /min University of in Arterial blood 13:03:00 [facility] ryann by Pulse oximetry Branch Body weight 2020-07-23 70.308 kg University of 16:57:00 [facility] BMI 2020-07-23 24.28 kg/m2 University of 16:57:00 [facility] Systolic blood 2019-06-15 110 mm[Hg] University of pressure 18:22:00 [facility] Diastolic blood 2019-06-15 57 mm[Hg] University o f pressure 18:22:00 [facility] Heart rate 2019-06-15 91 /min University of 18:22:00 [facility] Respiratory rate 2019-06-15 18 /min University of 18:22:00 [facility] Oxygen saturation 2019-06-15 98 /min University of in Arterial blood 18:22:00 [place] [facility] Pulse oximetry [facility] Body temperature 2019-06-15 38 Tayla [facility] 16:54:00 [facility] Body weight 2019-06-15 83.915 kg [facility] 16:54:00 [facility] BMI 2019-06-15 28.98 kg/m2 [facility] 16:54:00 [facility] Procedures Procedure Date / Time Performing Clinician Source Performed AUTHORIZATION FOR RELEASE 2021-06-18 05:01:00 Doctor Unassigned, [facility] Name [facility] EXTERNAL PROVIDER RECORDS 2020-11-20 06:01:00 Doctor Unassigned, [facility] Name [facility] CBC WITH DIFF 2020-10-29 13:10:00 Sravan [facility] MAGNESIUM 2020-10-29 09:36:00 [facility] BASIC METABOLIC PANEL 2020-10-29 09:36:00 [facility] (NA, K, CL, CO2, GLUCOSE, [facility] BUN, CREATININE, CA) PHOSPHORUS 2020-10-28 10:00:00 [facility] MAGNESIUM 2020-10-28 10:00[facility] 2020-10-28 10:00:00 [facility] (NA, K, CL, CO2, GLUCOSE, [facility] BUN, CREATININE, CA) CBC WITH DIFF 2020-10-28 09:59:00 [facility] MAGNESIUM 2020-10-27 07:05:00 [facility] BASIC METABOLIC PANEL 2020-10-27 07:05:00 [facility] (NA, K, CL, CO2, GLUCOSE, Medica l Branch BUN, CREATININE, CA) CBC WITH DIFF 2020-10-27 07:05:00 [facility] URINALYSIS 2020-10-27 07:05:00 Suraj [facility] URINE CULTURE 2020-10-27 07:05:00 Suraj [facility] CBC WITH DIFF 2020-10-26 11:43:00 [facility] PHOSPHORUS 2020-10-26 03:41:00 [facility] MAGNESIUM 2020-10-26 03:41:00 [facility] BASIC METABOLIC PANEL 2020-10-26 03:41:00 Ehsan [facility] (NA, K, CL, CO2, GLUCOSE, Medica l Branch BUN, CREATININE, CA) CBC WITH DIFF 2020-10-26 03:41:00 [facility] COVID-19 (ID NOW RAPID 2020-10-25 01:26:00 Rena Moser [facility] TESTING) Medical Branch LAB ONLY COVID 2020-10-25 01:26:00 [facility] BASIC METABOLIC PANEL 2020-10-24 22:27:00 Leticia Hinson [facility] (NA, K, CL, CO2, GLUCOSE, Medica l Branch BUN, CREATININE, CA) CBC WITH DIFF 2020-10-24 22:27:00 Leticia Hinson [facility] CT ABDOMEN PELVIS W 2020-10-24 21:20:40 Rena Moser [facility] CONTRAST [facility] BASIC METABOLIC PANEL 2020-10-17 23:11:00 [facility] (NA, K, CL, CO2, GLUCOSE, Medica l Branch BUN, CREATININE, CA) CLOSTRIDIUM DIFFICILE 2020-10-17 17:24:00 Ehsan Rena [facility] TOXIN [facility] MRSA / MSSA SCREEN BY 2020-10-15 01:09:00 Mandeep Garnica [facility] PHILL BERMUDEZ [facility] SURGICAL PATHOLOGY EXAM 2020-10-14 15:01:00 Kalee [facility] EXPLORATORY LAPAROTOMY 2020-10-14 13:10:00 [facility] ILEOSTOMY TAKEDOWN 2020-10-14 13:10:00 Kalee [facility] ASSIGNMENT OF BENEFITS 2020-10-14 11:29:56 Doctor Unassigned, Un [facility] [place] URINALYSIS 2020-10-02 05:22:00 Ebony Chakraborty [facility] LIPASE 2020-10-02 05:19:00 Ebony Chakraborty [facility] HEPATIC FUNCTION PANEL 2020-10-02 05:19:00 Ebony Chakraborty [facility] ([id number]) (ALB,T.PRO,BILI Medical Branch T,BU/BC,ALT,AST,ALK PHOS) BASIC METABOLIC PANEL 2020-10-02 05:19:00 Ebony Chakraborty [facility] (NA, K, CL, CO2, GLUCOSE, Medica l Branch BUN, CREATININE, CA) CBC WITH DIFF 2020-10-02 05:19:00 Ebony Chakraborty [facility] CONSENT/REFUSAL FOR 2020-10-02 04:45:02 Doctor Unassigned, [facility] DIAGNOSIS AND TREATMENT [facility] COMP. METABOLIC PANEL 2020-09-16 12:00:00 Roby Jean [facility] ([id number]) Medical Branch COMP. METABOLIC PANEL 2020-09-15 09:58:[address] [facility] ([id number]) Medical Branch CREATINE KINASE 2020-09-14 16:03:00 [facility] HEPATIC FUNCTION PANEL 2020-09-14 16:03:00 Roby Jean [facility] ([id number]) (ALB,T.PRO,BILI Medical Branch T,BU/BC,ALT,AST,ALK PHOS) BASIC METABOLIC PANEL 2020-09-14 16:03:[address] [facility] (NA, K, CL, CO2, GLUCOSE, Medica l Branch BUN, CREATININE, CA) HEPATITIS B SURFACE 2020-09-14 10:15:00 Johnny [facility] ANTIBODY [facility] HEPATITIS B SURFACE 2020-09-14 10:15:00 [facility] HCV BY PCR 2020-09-14 10:15:00 [facility]OUTINE & RHYTHM 2020-09-13 18:17:57 Hellen Sorenson [facility] STRIP Medical Branch MAGNESIUM 2020-09-13 18:16:00 [facility] 2020-09-13 18:16:00 Hellen Sorenson [facility] LIPASE 2020-09-13 17:15:00 [facility] COMP. METABOLIC PANEL 2020-09-13 17:15:00 Hellen Sorenson [facility] ([id number]) Medical Branch CBC WITH DIFF 2020-09-13 17:15:00 [facility] XR ABDOMEN 2 VW 2020-09-13 16:44:14 [facility] EMERGENCY DEPARTMENT 2020-09-13 05:01:00 Doctor Unassigned, [facility] DOCUMENTS [facility] CT ABDOMEN PELVIS W 2020-09-01 08:02:47 Shayla Munoz [facility] CONTRAST Medical Branch LIPASE 2020-09-01 07:10:00 Shayla Munoz [facility] COMP. METABOLIC PANEL 2020-09-01 07:10:00 Shayla Munoz [facility] ([id number]) Medical Branch CBC WITH DIFF 2020-09-01 07:10:00 Shayla Munoz [facility] CT ABDOMEN PELVIS W 2020-08-24 01:30:05 Matthias Silvestre [facility] CONTRAST Medical Branch LIPASE 2020-08-23 23:52:00 Matthias Silvestre [facility] CBC WITH DIFF 2020-08-23 23:52:00 Matthias Silvestre [facility] CONSENT/REFUSAL FOR 2020-08-23 22:12:59 Doctor Unassigned, [facility] DIAGNOSIS AND TREATMENT [facility] CT ABDOMEN PELVIS W 2020-08-18 02:24:35 Shayla Munoz [facility] CONTRAST Medical Branch LIPASE 2020-08-18 01:23:00 Shayla Munoz [facility] COMP. METABOLIC PANEL 2020-08-18 01:23:00 Shayla Munoz [facility] ([id number]) Medical Branch CBC WITH DIFF 2020-08-18 01:23:00 Shayla Munoz [facility] COVID-19 (ID NOW RAPID 2020-08-18 01:23:00 Shayla Munoz [facility] TESTING) Medical Branch NOTICE OF PRIVACY 2020-08-18 00:35:45 Doctor Unassigned, [facility] PRACTICES [facility] CONSENT/REFUSAL FOR 2020-08-18 00:31:36 Doctor Unassigned, [facility] DIAGNOSIS AND TREATMENT [facility] AUTHORIZATION TO RELEASE 2020-08-09 05:01:00 Doctor Unassigned, [facility] PHI TO [facility] PHOSPHORUS 2020-08-01 08:47:00 [facility] 2020-08-01 08:47:00 [facility] BASIC METABOLIC PANEL 2020-08-01 08:47:00 [facility] (NA, K, CL, CO2, GLUCOSE, Medica l Branch BUN, CREATININE, CA) CBC WITH DIFF 2020-08-01 08:47:00 [facility] PHOSPHORUS 2020-07-31 10:06:00 [facility] 2020-07-31 10:06:00 [facility] BASIC METABOLIC PANEL 2020-07-31 10:06:00 [facility] (NA, K, CL, CO2, GLUCOSE, Medica l Branch BUN, CREATININE, CA) CBC WITH DIFF 2020-07-31 10:06:00 [facility] PHOSPHORUS 2020-07-30 09:29:00 [facility] 2020-07-30 09:29:00 [facility] BASIC METABOLIC PANEL 2020-07-30 09:29:00 [facility] (NA, K, CL, CO2, GLUCOSE, Medica l Branch BUN, CREATININE, CA) BASIC METABOLIC PANEL 2020-07-29 10:11:00 [facility] (NA, K, CL, CO2, GLUCOSE, Medica l Branch BUN, CREATININE, CA) CBC WITHOUT DIFF 2020-07-29 10:11:[address] [facility] PROTHROMBIN TIME / INR 2020-07-29 10:11:00 Mark [facility] ACTIVATED PARTIAL 2020-07-29 10:11:00 Judy Flores [facility] FIBRINOGEN 2020-07-29 10:11:[address] [facility] EXTRA TUBE LT. BLUE 2020-07-29 10:11:00 Darren Chun [facility] ty [facility] EXTRA TUBE LT. GREEN 2020-07-29 10:11:00 [facility] XR KUB 2020-07-29 09:55:00 [facility] WITHOUT DIFF 2020-07-28 10:15:00 Devan [facility] BASIC METABOLIC PANEL 2020-07-28 09:47:00 Farooq Hartman [facility] (NA, K, CL, CO2, GLUCOSE, [facility] BUN, CREATININE, CA) BASIC METABOLIC PANEL 2020-07-27 10:39:00 Farooq Hartman [facility] (NA, K, CL, CO2, GLUCOSE, [facility] BUN, CREATININE, CA) CBC WITHOUT DIFF 2020-07-27 10:39:00 Devan [facility] BASIC METABOLIC PANEL 2020-07-26 07:53:00 Farooq Hartman [facility] (NA, K, CL, CO2, GLUCOSE, [facility] BUN, CREATININE, CA) CBC WITHOUT DIFF 2020-07-26 07:53:00 Devan [facility] MAGNESIUM 2020-07-26 00:13:00 Devan [facility] BASIC METABOLIC PANEL 2020-07-26 00:13:00 Farooq Hartman [facility] (NA, K, CL, CO2, GLUCOSE, [facility] BUN, CREATININE, CA) CBC WITHOUT DIFF 2020-07-26 00:13:00 Devan [facility] PROTHROMBIN TIME / INR 2020-07-26 00:13:00 Farooq Hartman [facility] ACTIVATED PARTIAL 2020-07-26 00:13:00 Farooq Hartman [facility] SURGICAL PATHOLOGY EXAM 2020-07-25 22:08:00 Kalee [facility] ILEOSTOMY 2020-07-25 20:18[facility]00 [facility] ILE[facility] 2020-07-25 20:18:00 [facility] BASIC METABOLIC PANEL 2020-07-25 11:35:00 Parag [facility] (NA, K, CL, CO2, GLUCOSE, Medica l Branch BUN, CREATININE, CA) CBC WITHOUT DIFF 2020-07-25 11:35:00 Parag [facility] ABORH CONFIRMATION 2020-07-25 04:37:00 Mercedez Negro [facility] HB ABO GROUPING 2020-07-25 04:12:00 Oliver Nunez [facility] BASIC METABOLIC PANEL 2020-07-24 07:34:00 Dc Jay [facility] (NA, K, CL, CO2, GLUCOSE, Medica l Branch BUN, CREATININE, CA) CBC WITHOUT DIFF 2020-07-24 07:34:00 Dc Jay [facility] XR ABDOMEN 1 VW 2020-07-24 06:56:00 Dc Jay [facility] EKG-12 LEAD 2020-07-24 06:39:07 Farooq Zepeda [facility] COVID-19 (ID NOW RAPID 2020-07-24 00:26:00 [facility]cedez Negro [facility] AC[facility] WHOLE BLOOD 2020-07-24 00:24:00 Mercedez Negro [facility] BLOOD CULTURE SCREEN 2020-07-23 21:41:00 Mercedez Negro [facility] LACTIC ACID WHOLE BLOOD 2020-07-23 21:41:00 Mercedez Negro [facility] CT ABDOMEN PELVIS W 2020-07-23 20:56:34 [facility]cedez Negro [facility] LIPASE 2020-07-23 19:31:00 Mercedez Negro [facility] HEPATIC FUNCTION PANEL 2020-07-23 19:31:00 Mercedez Negro [facility] ([id number]) (ALB,T.PRO,BILI Medical Branch T,BU/BC,ALT,AST,ALK PHOS) BASIC METABOLIC PANEL 2020-07-23 19:31:00 Mercedez Negro [facility] (NA, K, CL, CO2, GLUCOSE, Medica l Branch BUN, CREATININE, CA) CBC WITH DIFF 2020-07-23 19:31:00 Mercedez Negro [facility] URINALYSIS 2020-07-23 19:19:00 Mercedez Negro [facility] NOTICE OF PRIVACY 2020-07-23 16:48:03 Doctor Unassigned, [facility] PRACTICES [facility] CONSENT/REFUSAL FOR 2020-07-23 16:47:54 Doctor Unassmaria del carmen, [facility] DIAGNOSIS AND TREATMENT [facility] AGREEMENTS AUTHORIZATIONS 2020-07-23 05:01:00 Doctor Unawendy, [facility] AND IRREVOCABLE [place] [facility] [place] ASSIGNMENTS (FORM 2001) CT ABDOMEN PELVIS W 2019-06-15 18:45:34 Mary Jo Dukes [facility] CONTRAST [facility] LACTIC ACID WHOLE BLOOD 2019-06-15 17:46:00 Mary Jo Dukes [facility] LIPASE 2019-06-15 17:30:00 Mary Jo Dukes [facility] HEPATIC FUNCTION PANEL 2019-06-15 17:30:00 Mary Jo Dukes [facility] ([id number]) (ALB,T[facility] T,BU/BC,ALT,AST,ALK PHOS) BASIC METABOLIC PANEL 2019-06-15 17:30:00 Mary Jo Dukes Un [facility] (NA, K, CL, CO2, GLUCOSE, Medica l Branch BUN, CREATININE, CA) CBC WITH DIFFERENTIAL 2019-06-15 17:30:00 Mary Jo Dukes Un [facility] POCT TEST 2019-06-15 17:24:00 Mary Jo Dukes [facility] URINALYSIS 2019-06-15 17:22:00 Mary Jo Dukes [facility] NOTICE OF PRIVACY 2019-06-15 16:39:09 Doctor Unassigned, [facility] PRACTICES [facility] CONSENT/REFUSAL FOR 2019-06-15 16:38:53 Doctor MaricruzssHernandez joyce [facility] DIAGNOSIS AND TREATMENT [facility] Plan of Care Planned Activity Planned Date Details Comments Source Future Scheduled Test 2022-08-15 00:00:00 IMM Influenza [facility] Seasonal (>/= 19 yrs) [code = IMM Influenza Seasonal (>/= 19 yrs)] Future Scheduled Test 2022-08-15 00:00:00 IMM Influenza [facility] Seasonal (>/= 19 yrs) [code = IMM Influenza Seasonal (>/= 19 yrs)] Future Scheduled Test 2022-08-15 00:00:00 IMM Influenza [facility] Seasonal (>/= 19 yrs) [code = IMM Influenza Seasonal (>/= 19 yrs)] Future Scheduled Test 2022-08-15 00:00:00 IMM Influenza [facility] Seasonal (>/= 19 yrs) [code = IMM Influenza Seasonal (>/= 19 yrs)] Future Scheduled Test 2014 00:00:00 Breast Cancer Scrn [facility] (Yearly) [code = Breast Cancer Scrn (Yearly)] Future Scheduled Test 2014 00:00:00 Breast Cancer Scrn [facility] (Yearly) [code = Breast Cancer Scrn (Yearly)] Future Scheduled Test 2014 00:00:00 Breast Cancer Scrn [facility] (Yearly) [code = Breast Cancer Scrn (Yearly)] Future Scheduled Test 2014 00:00:00 Breast Cancer Scrn [facility] (Yearly) [code = Breast Cancer Scrn (Yearly)] Future Scheduled Test 2004 00:00:00 Screening for [facility] malignant neoplasm of cervix (procedure) [code = 232403200] Future Scheduled Test 2004 00:00:00 Screening for [facility] malignant neoplasm of cervix (procedure) [code = 556731278] Future Scheduled Test 2004 00:00:00 Screening for [facility] malignant neoplasm of cervix (procedure) [code = 882615820] Future Scheduled Test 2004 00:00:00 Screening for [facility] malignant neoplasm of cervix (procedure) [code = 532492618] Future Scheduled Test 2004 00:00:00 Screening for [facility] malignant neoplasm of cervix (procedure) [code = 724001522] Future Scheduled Test 2004 00:00:[address] [facility] malignant neoplasm of cervix (procedure) [code = 339157187] Future Scheduled Test 2004 00:00:[address] [facility] malignant neoplasm of cervix (procedure) [code = 314541358] Future Scheduled Test 2004 00:00:[address] [facility] malignant neoplasm of cervix (procedure) [code = 137897120] Future Scheduled Test 1976-04-08 00:00:00 COVID-19 Vaccine (#1) [facility] [code = COVID-19 Vaccine (#1)] Future Scheduled Test 1975-04-08 00:00:00 COVID-19 Vaccine (#1) [facility] [code = COVID-19 Vaccine (#1)] Future Scheduled Test 1975-04-08 00:00:00 COVID-19 Vaccine (#1) [facility] [code = COVID-19 Vaccine (#1)] Future Scheduled Test 1975-04-08 00:00:00 COVID-19 Vaccine (#1) [facility] [code = COVID-19 Vaccine (#1)] Future Scheduled Test 1974 00:00:[address] [facility] [code = Fluoride Varnish] Future Scheduled Test 1974 00:00:[address] [facility] [code = Fluoride Varnish] Future Scheduled Test 1974 00:00:[address] [facility] [code = Fluoride Varnish] Encounters Start End Encounter Admission Attending Care Care Encounter Source Date/Time Date/Time Type Type Clinicians Facility Department ID 2021-09-13 Emergency [facility] [id number] Univers 06:14:00 ity [facility] 2021-09-13 Outpatient PHATAK, DARREN [facility] [id number] Univers 05:23:22 ity [facility] 2021-09-13 Emergency [facility] [id number] Univers 04:35:58 ity [facility] 2021-09-13 Emergency [facility] [id number] Univers 02:03:39 ity [facility] 2021-09-13 Emergency [facility] [id number] Univers 00:06:17 ity [facility] 2021-09-12 Emergency [facility] [id number] Univers 23:33:58 ity of [facility] 2021-09-12 Emergency [facility] [id number] Univers 22:11:08 ity of [facility] 2021-09-12 Emergency [facility] [id number] Univers 20:54:06 ity of [facility] 2021-03-20 Inpatient HCAPM JOSE ROBERTO [id number] [facility] 10:26:00 41 [facility] 2021-01-10 Inpatient HCAWU JOSE ROBERTO [id number] [facility] 20:22:00 98 [facility] 2021-06-18 2021-06-18 Orders Doctor LETICIA 1.2.840.114 [id number] Univers 00:00:00 00:00:00 Only Unassigned, ARMAND 350.1.13.10 ity of [place] [facility] 4.2.7.2.686 Juan as [phone] [facility] 009 Branch 2021-05-31 2021-05-31 Emergency E LADSON, NW MHNW 7504 [facility]NW 11:46:00 20:16:00 SPANGLERIfeomaKRISTINA 2021-03-20 2021-03-20 Outpatient Rich, HCACL HCACL [id number] [facility] 18:43:30 18:43:30 Safi 05 [facility] 2021-01-03 2021-01-03 Patient Anne Fuentes 1.2.840.114 [id number] Univers 00:00:00 00:00:00 Outreach Mercedez Narayanan 350.1.13.10 it[place] [phone] [facility] 403 [address] 2020-11-26 2020-11-26 Outpatient R RUBÉN [facility] [id number] Univers 09:00:00 09:00:00 ORPHEUS ity of [facility] 2020-11-26 2020-11-26 Telephone Darren Chun [facility] 1.2.840.114 [id number] Univers 00:00:00 00:00:00 Health 350.1.13.10 it [place] - [phone] Med ical [facility] 408 Branch 2020-11-22 2020-11-22 Outpatient R [facility] [id number] Univers 15:30:00 15:30:00 ORPHEUS ity [facility] 2020-11-20 2020-11-20 Orders Doctor LETICIA 1.2.840.114 [id number] Univers 00:00:00 00:00:00 Only Unassigned, ARMAND 350.1.13.10 ity of [place] [facility] 4.2.7.2.686 Juan as [phone] [facility] 009 Branch 2020-11-19 2020-11-19 Outpatient R [facility] [id number] Univers 11:15:00 11:15:00 ORPHEUS ity [facility] 2020-11-12 2020-11-12 Patient Deepika Ramirez Anne 1.2.840.114 [id number] Univers 00:00:00 00:00:00 Outreach E Narayanan 350.1.13.10 i [place] [phone] [address] 2020-11-11 2020-11-11 Telephone [facility] 1.2.840.114 [id number] Univers 00:00:00 00:00:00 Mehrdad [facility] 350.1.13.10 it[place] - [phone] [facility] 188 [address] 2020-11-05 2020-11-05 Telephone Darren Chun [facility] 1.2.840.114 [id number] Univers 00:00:00 00:00:00 SPECIALTY 350.1.13.10 it[place] [phone] Mt dical VICTORY [address] [facility] 2020-11-01 2020-11-01 Patient Deepika Ramirez Anne 1.2.840.114 80 [id number] Univers 00:00:00 00:00:00 Outreach E Narayanan 350.1.13.10 i [place] [phone] [address] 2020-10-31 2020-10-31 Transition Anne Damon 1.2.840.114 802 [id number] 00:00:00 00:00:00 of Care Lynda Narayanan 350.1.13.10 [place] 4.2.7.2.686 [id number] 403 2020-10-31 2020-10-31 Transition Anne Damon 1.2.840.114 802 [id number] [facility] [place] 00:00:00 00:00:00 of Care Lynda Narayanan 350.1.13.10 ity of [place] [phone] [place] [address] Branch 2020-10-24 2020-10-30 [facility] Blaire 1.2.840.114 8 [id number] 13:38:00 19:38:00 Encounter Armand 350.1.13.10 Hospital 4.2.7.2.686 [id number] Critical access hospital 2020-10-24 2020-10-30 [facility] [place] 1.2.840.114 8 [id number] [facility] 13:38:00 19:38:00 Encounter Keenes 350.1.13.10 ity of Hospital 4.2.7.2.686 Juan as [phone] [place] 983059 [place] 2020-10-24 2020-10-30 [facility] X [facility] JASIEL [id number] Univers 13:38:00 19:38:00 ity of [facility] 2020-10-21 2020-10-21 Transition Anne Damon 1.2.840.114 [id number] 00:00:00 00:00:00 of Care Lynda Narayanan 350.1.13.10 [place] 4.2.7.2.686 [id number] 403 2020-10-21 2020-10-21 Transition Anne Damon 1.2.840.114 800 [id number] Univers 00:00:00 00:00:00 of Care Lynda Narayanan 350.1.13.10 ity of [place] [id number] [place] [address] Branch 2020-10-14 2020-10-[address] [facility] 1.2.840.114 7 [id number] 05:48:00 15:50:00 Encounter Arm[place] 350.1.13.10 Hospital 4.2.7.2.686 [id number] 099 2020-10-14 2020-10-19 [facility] Darren Chun 1.2.840.114 7 [id number] [facility] [place] 05:48:00 15:50:00 Encounter Armand 350.1.13.10 ity of Hospital 4.2.7.2.686 [place] as [phone] [facility] 099 Branch 2020-10-16 2020-10-16 Patient Deepika Ramirez 1.2.840.114 79 [id number] 00:00:00 00:00:00 Outreach E Narayanan 350.1.13.10 [place] 4.2.7.2.686 [id number] 403 2020-10-16 2020-10-16 Patient Deepika Ramirez 1.2.840.114 79 [id number] Univers 00:00:00 00:00:00 Outreach E Narayanan 350.1.13.10 i ty [place] 518.1357213 [facility] 403 [address] 2020-10-14 2020-10-14 Orders Doctor LETICIA 1.2.840.114 [id number] 00:00:00 00:00:00 Only Unassigned, ARMAND 350.1.13.10 [place] [facility] 4.2.7.2.686 [id number] 009 2020-10-14 2020-10-14 Orders Doctor KELLY 1.2.840.114 [id number] [facility] 00:00:00 00:00:00 Only Unassigned, ARMAND 350.1.13.10 ity of [place] [facility] 4.2.7.2.686 Juan as [phone] [facility] 009 Branch 2020 2020 Laboratory Only, Adc [facility] 1.2.840.114 7 [id number] 14:56:46 15:11:46 Only Test [place] 350.1.13.10 [place] 4.2.7.2.686 [place] [id number] [facility] 2020 2020 Laboratory Only, Adc Test [facility] 1.2.840. 114 [id number] Univers 14:56:46 15:11:46 Only Darren Chun 350.1.13.10 it[place] of [place] [phone] [facility] 353 [address] 2020 2020 Outpatient R [facility] [id number] Univers 14:45:00 14:45:00 ity of [facility] 2020-10-07 2020-10-07 Patient Deepika Ramirezmamie 1.2.840.114 [id number] 00:00:00 00:00:00 Outreach E Narayanan 350.1.13.10 [place] 4.2.7.2.686 [id number] [facility] 2020-10-07 2020-10-07 Patient Deepika Ramirez Anne 1.2.840.114 79 [id number] Univers 00:00:00 00:00:00 Outreach E Narayanan 350.1.13.10 i ty of [place] [phone] [facility] 403 [address] 2020-10-01 2020-10-02 Emergency [facility] 1.2.840.114 79 [id number] Univers 23:00:00 01:14:00 Ebony Abernathy 350.1.13.10 ity of [place] [phone] [facility] 084 Branch 2020-10-01 2020-10-01 Transition Anne Damon 1.2.840.114 [id number] Univers 00:00:00 00:00:00 of Care Lynda Narayanan 350.1.13.10 ity of [place]2.[place] [phone] [facility] 403 [address] 2020-09-30 2020-09-30 Telephone Darren Chun [facility] 1.2.840.114 [id number] Univers 00:00:00 00:00:00 Health 350.1.13.10 it [place] - [phone] Med ical [facility] 408 [address] 2020-09-27 2020-09-27 Office Kalee [facility] 1.2.840.114 79 [id number] Univers 09:20:41 09:35:41 Visit Health 350.1.13.10 it [place] [facility] [phone] [address] 2020-09-27 2020-09-27 Outpatient R [facility] 069 [id number] Univers 09:30:00 09:30:00 ity of [facility] 2020-09-24 2020-09-24 Telephone Kalee [facility] 1.2.840.114 [id number] Univers 00:00:00 00:00:00 Health 350.1.13.10 it y [place]2.[place] [facility] [phone] [facility] 408 [address] 2020-09-19 2020-09-19 Transition Anne Damon 1.2.840.114 [id number] Univers 00:00:00 00:00:00 of Care Lynda Narayanan 350.1.13.10 ity of [place] 086.4312772 [facility] 403 [address] 2020-09-19 2020-09-19 Patient Deepika Ramirez 1.2.840.114 79 [id number] Univers 00:00:00 00:00:00 Outreach E Narayanan 350.1.13.10 i ty of [place].2.[place] [id number] [facility] 403 [address] 2020-09-13 2020-09-18 [facility] 1.2.840.1 14 [id number] Univers 10:29:00 17:07:00 Encounter Roby Jean 350.1.13.10 ity of [place]2.[place] [phone] [facility] 081 Branch 2020-09-17 2020-09-17 Patient Deepika Ramirez 1.2.840.114 79 [id number] Univers 00:00:00 00:00:00 Outreach E Narayanan 350.1.13.10 i ty [place] 301.3896322 [address] 2020-09-16 2020-09-16 Patient Deepika Ramirez Anne 1.2.840.114 79 [id number] Univers 00:00:00 00:00:00 Outreach E Narayanan 350.1.13.10 i ty [place] [id number] [address] 2020-09-16 2020-09-16 Patient Anne Fuentes 1.2.840.114 [id number] Univers 00:00:00 00:00:00 Outreach Mercedez W Narayanan 350.1.13.10 ity of [place] [phone] [address] 2020-09-13 2020-09-13 Patient Deepika Ramirez Anne 1.2.840.114 79 [id number] Univers 00:00:00 00:00:00 Outreach E Narayanan 350.1.13.10 i ty [place] 433.1364348 [address] 2020-09-12 2020-09-12 Transition Anne Damon 1.2.840.114 791 [id number] Univers 00:00:00 00:00:00 of Care Lynda Narayanan 350.1.13.10 ity [place] 109.9157633 [address] 2020-09-12 2020-09-12 Patient Deepika Ramirez Anne 1.2.840.114 79 [id number] Univers 00:00:00 00:00:00 Outreach E Narayanan 350.1.13.10 i ty of [place] [id number] [address] 2020-09-12 2020-09-12 Patient Deepika Ramirez Anne 1.2.840.114 79 [id number] Univers 00:00:00 00:00:00 Outreach E Narayanan 350.1.13.10 i ty [place] [id number] [address] 2020-09-12 2020-09-12 Patient Anne Fuentes 1.2.840.114 [id number] Univers 00:00:00 00:00:00 Outreach Mercedez Narayanan 350.1.13.10 ity of [place] 4.2.7.2.686 [facility] [id number] [facility] 403 [address] 2020-09-12 2020-09-12 Telephone [facility] 1.2.840.114 [id number] Univers 00:00:00 00:00:00 [place] SPECIALTY 350.1.13.10 ity of CARE 4.2.7.2.686 [facility] [place] AT [phone] Mt maximus LARA [address] [facility] 2020-09-06 2020-09-06 Outpatient R [facility] [id number] Univers 11:00:00 11:00:00 ity of [facility] 2020-09-03 2020-09-03 Outpatient R [facility] [id number] Univers 11:00:00 11:00:00 ity of [facility] 2020-09-01 2020-09-01 Emergency [facility] 1.2.209.382 [id number] Univers 01:42:00 07:20:00 Shayla Martínez [place] 350.1.13.10 ity of [place] 4.2.7.2.686 [facility] [phone] [facility] 084 Branch 2020-08-29 2020-08-29 Telephone [facility] 1.2.840.114 [id number] Univers 00:00:00 00:00:00 Mehrdad Alonso Health 350.1.13.10 ity of Cancer 4.2.7.2.686 [facility] - [phone] Med ical [facility] 188 [address] 2020-08-28 2020-08-28 [facility] 1.2.840.114 [id number] Univers 00:00:00 00:00:00 Health 350.1.13.10 it y of Cancer 4.2.7.2.686 [facility] - 499.3736225 Med ical [facility] 408 [address] 2020-08-23 2020-08-23 Emergency [facility] 1.2.522.802 [id number] Univers 17:35:00 22:19:00 Matthias Sarkarton 350.1.13.10 i ty of [place] 4.2.7.2.686 [facility] [phone] [place] 827104 [place] 2020-08-20 2020-08-20 Deepika Candelario [facility] 1.2.840.114 [id number] Univers 11:14:50 12:08:13 Visit PersonDaquan HEALTH 350.1.13.10 ity of CLINICS 4.2.7.2.686 [facility] 342.0111011 [facility] 188 [place] 2020-08-20 2020-08-20 Outpatient R [facility] [id number] Univers 11:00:00 11:00:00 ity of [facility] 2020-08-20 2020-08-20 Telephone [facility] 1.2.840.114 [id number] Univers 00:00:00 00:00:00 Health 350.1.13.10 it y of Cancer 4.2.7.2.686 [facility] 391.9503524 Med ica MDA 408 [place] 2020-08-17 2020-08-18 Emergency [facility] 1.2.989.042 [id number] Univers 19:34:00 00:56:00 Shayla [place] 350.1.13.10 ity of [place] [address] [place] [phone] 2020-08-09 2020-08-09 Office [facility] 1.2.840.114 78 [id number] Univers 10:32:05 10:47:05 Visit Health 350.1.13.10 it y of Cancer 4.2.7.2.686 [facility] - [phone] Med ical [facility] 408 [address] 2020-08-09 2020-08-09 Outpatient R [facility] [id number] Univers 10:45:00 10:45:00 ity of [facility] 2020-08-09 2020-08-09 Orders Doctor KELLY 1.2.840.114 [id number] Univers 00:00:00 00:00:00 Only Unassigned, ARMAND 350.1.13.10 ity of [place] [facility] 4.2.7.2.686 Juan as [phone] [facility] 009 Branch 2020-08-05 2020-08-05 Telephone Darren Chun [facility] 1.2.840.114 [id number] Univers 00:00:00 00:00:00 Health 350.1.13.10 it y of [place]2.[place] [facility] 232.1274776 Med ical [place] 408 [address] 2020-08-02 2020-08-02 Transition Anne Ramirez 1.2.840.114 [id number] Univers 00:00:00 00:00:00 of Care Destinee Alonso Narayanan 350.1.13.10 i ty of [place]2.7.2.[place] 535.9557229 [facility] 403 [address] 2020-07-23 2020-08-01 Hospital Mercedez Negro Naun Rudd 1.2.840 .114 [id number] Univers 11:58:00 17:47:00 Encounter Shayla Munoz 350.1.13.10 ity of [facility] 4.2.7.2.686 [facility] [phone] Medical 091 Branch 2020-07-23 2020-07-23 Emergency [facility] [id number] Univers 11:58:00 11:58:00 MERCEDEZ ity of [facility] 2020-07-23 2020-07-23 Orders Doctor KELLY 1.2.840.114 [id number] Univers 00:00:00 00:00:00 Only Unassigned, ARMAND 350.1.13.10 ity of [place] [facility] 4.2.7.2.686 Juan as 040.2345911 [facility] 009 Branch 2019-12-09 2019-12-09 Emergency E MHSE MHSE 7503 MH 09:16:00 09:16:[address] [facility] 2019-06-15 2019-06-15 Emergency [facility] 1.2.840.114 [id number] Univers 11:46:39 15:08:00 Mary Jo Abernathy 350.1.13.10 ity of [place] 4.2.7.2.686 [facility] [phone] [facility] 084 Branch Results Test Description Test Time Test Comments Results Result [facility] roldan Comments - CT ABD PELVIS 2021-03-20 W/CONT 13:55:00 [facility] 1975 Sex: F Name: EDEN CHAKRABORTY [facility] : 1975 Age/S: 45 / F [address] [address] [place] Unit #: [id number] Loc: [place] [address] Phys: Lemuel Villanueva DO Acct: [id number] Dis Date: Status: REG ER PHONE #: [phone] Exam Date: 03/20/2021 1335 FAX #: Reason: epigastric pain, h/o Crohn's, SBO EXAMS: CPT: [id number] CT ABD PELVIS W/CONT 43819 Site ID: [id number] CLINICAL HISTORY: Epigastric abdominal [...] joint arthritis. IMPRESSION: No acute findings at 5795 Reported and signed by: Kang Bates M.D. PAGE 1 Signed Report (CONTINUED) Name: EDEN CHAKRABORTY [place] : 1975 Age/S: 45 / F [address] [place] Unit #: [id number] Loc: [place] [address] Phys: Lemuel Villanueva DO Acct: [id number] Dis Date: Status: REG ER PHONE #: [phone] Exam Date: 03/20/2021 1335 FAX #: Reason: epigastric pain, h/o Crohn's, SBO EXAMS: CPT: [id number] CT ABD PELVIS W/CONT 28391 <Continued> CC: Lemuel Villanueva DO Technologist:Miryam Anthony, RT(R)(CT) CTDI: DLP: Trnscb Date/Time: 03/20/2021 (3419) [email or web address] Orig Print D/T: S: 03/20/2021 (7541) PAGE 2 Signed Report - XR [facility] 2021-03-20 W/CXR 3+V LT 13:47:00 [facility] : 1975 Sex: F Name: EDEN CHAKRABORTY [place] : 1975 Age/S: 45 / F [address] [place] Unit #: [id number] Loc: [place] [address] Phys: Lemuel Villanueva DO Acct: [id number] Dis Date: Status: REG ER PHONE #: [phone] Exam Date: 03/20/2021 1231 FAX #: Reason: left rib pain EXAMS: CPT: [id number] XR RIBS UNI W/CXR 3+[place] [address] Fluoro Time: DAP (Gy m2): Air Kerma [...] PAGE 1 Signed Report Name: EDEN CHAKRABORTY [facility] : 1975 Age/S: 45 / F [address] [address] [place] Unit #: [id number] Loc: [place] [address] Phys: Lemuel Villanueva DO Acct: [id number] Dis Date: Status: REG ER PHONE #: [phone] Exam Date: 03/20/2021 1231 FAX #: Reason: left rib pain EXAMS: CPT: [id number] XR RIBS UNI W/CXR 3+[place] [address] Fluoro Time: DAP (Gy m2): Air Kerma (mGy): <Continued> Technologist: Cady Pendleton RT(R)(MR) Trnscb Date/Time: 03/20/2021 (1347) [email or web address] Orig Print D/T: S: 03/20/2021 (6184) PAGE 2 Signed Report HCG SERUM 2021-03-20 12:51:00 Test Item Value Reference Range Interpretation Comme nts HCG SERUM (test code = HCG) < 1 mi-IU/ML 0-6 N 0 - 6 NOT > 6 SUGGESTIVE OF EARLY RISES TWO FOLD EVERY 2 DAYS; SUGGEST RECONFIRMING AFTER 2 DAYS. 150,000-2 00[address] TRIMESTER 10,000 - 50,000 2ND & 3RD TRIMESTER BASIC METABOLIC [id number] 12:49:00 Test Item Value Reference Range Interpretation [...] 8.5-10.1 N Completed by Nursing: LETICIAHEPATIC FUNCTION [id number] 12:49:00 Test Item Value Reference Range Interpretation [...] N code = ALKP) Completed by Nursing: [id number] 12:49:00 Test Item Value Reference Range Interpretation Comments LIPASE (test code = LIP) 77 Unit/L 114-286 L Completed by Nursing: [id number] 12:49:00 Test Item Value Reference Range Interpretation [...] tarun yby method. Completed by Nursing: NOPROTHROMBIN [id number] 12:25:00 Test Item Value Reference Range Interpretation Comments PT PATIENT (test code = PTP) 10.7 SECONDS 9.3-12.9 N INTERNATIONAL NORMAL RATIO 0.96 INR Unit 0.8-1.2 N (test code = INR) CBC W/AUTO [id number] 12:23:00 Test Item Value Reference Range Interpretation [...] = MDIFF) UA RFLX MICR CULT IF [id number] 12:18:00 Test Item Value Reference Range Interpretation [...] URINE: CLEAN CATCHUA RFLX MICR CULT IF [id number] 12:18:00 Test Item Value Reference Range Interpretation [...] RiskForSepsis-no oth srcSOURCE OF URINE: CLEAN CATCHLACTIC [id number] 11:59:00 Test Item Value Reference Range Interpretation Comments LACTIC ACID (test code = LACT) 1.3 mmol/L 0.4-2.0 N - XR KNEE 3 V [id number] 21:05:00 [facility] 1975 Sex: F Patient Name: EDEN CHAKRABORTY Unit No: [id number] EXAMS: CPT CODE: [id number] XR KNEE 3 [place] [address] Location: H3 Right knee x-ray exam: 3 [...] Daquan Armas (RT) Transcrpt Date/Tm/Trnsp: 01/10/2021 (2104) [id number] Orig Print D/T: S: 01/10/2021 (2107) [facility] NAME: EDEN CHAKRABORTY [id number] [address] PHYS: [place] [address] : 1975 AGE: 45 SEX: F LOC: Z.ERS PHONE #: [phone] EXAM DATE: 01/10/2021 STATUS: REG ER FAX #: [phone] RADIOLOGY NO: [id number] PAGE 1 Signed ReportCBC WITH DIFF 2020-10-29 13:24:00 Test Item Value Reference Range Interpretation Comments WBC (test code = See_Comment [Automated 3190-2) message] The sy stem which generated this [...] (test code = 51.6 fL 39-49.9 H 51389-6) RDW-CV (test code = 14.3 % 12-15.5 788-0) PLT (test code = See_Comment H [Automated 777-3) message] The sy stem which generated this result transmitted reference range : 166 - 358 10*3/ ?L. The reference r madelin was not used to interpret this result as normal/abnormal . MPV (test code = 8.9 fL 9.5-12.9 L 46563-1) NRBC/100 WBC (test See_Comment [Automat ed code = [id number]) message] The system which generated this result transmitted reference range : 0.0 - 10.0 /100 WBCs. The refer ence range was not u sed to interpret th is result as normal/abnormal . NRBC x10^3 (test code <0.01 See_Comment [Auto mated = [id number]) message] The s ystem which generated this result transmitted reference range : 10*3/?L. The reference range was not used to interpret this result as normal/abnormal . GRAN MAT (NEUT) % 43.5 % (test code = 770-8) IMM GRAN % (test code 0.50 % = [id number]) LYMPH % (test code = 36.9 % 736-9) MONO % (test code = 11.5 % 5905-5) EOS % (test code = 6.5 % 713-8) BASO % (test code = 1.1 % 706-2) GRAN MAT x10^3(ANC) 2.80 10*3/uL 1.88-7.09 (test code = [id number]) IMM GRAN x10^3 (test 0.03 10*3/uL 0-0.06 code = [id number]) LYMPH x10^3 (test code 2.37 10*3/uL 1.32-3.29 = 731-0) MONO x10^3 (test code 0.74 10*3/uL 0.33-0.92 = 742-7) EOS x10^3 (test code = 0.42 10*3/uL 0.03-0.39 H 711-2) BASO x10^3 (test code 0.07 10*3/uL 0.01-0.07 = 704-7) Lab Interpretation Abnormal (test code = 66032-4) [facility] Metabolic Panel (NA, K, CL, CO2, GLUCOSE, BUN, CREATININE, CA)2020-10-29 10:07:00 Test Item Value Reference Range Interpretation Comments NA (test code = 133 mmol/L 135-145 L [id number]) K (test code = 4.3 mmol/L 3.5-5 5925052743) CL (test code = 102 mmol/L 98-108 6653266078) CO2 TOTAL (test code = 28 mmol/L 23-31 7785681345) AGAP (test code = 2-16 8093125036) BUN (test code = 3 mg/dL 7-23 L 0585351514) GLUCOSE (test code = 103 mg/dL 70-110 9991261834) CREATININE (test code = 0.62 mg/dL 0.5-1.04 5341295350) CALCIUM (test code = 8.4 mg/dL 8.6-10.6 L 2050179393) eGFR Calculation mL/min/1.73m2 (Non-) (test code = 8366008475) eGFR Calculation mL/min/1.73m2 () (test code = 2485641554) GUICHO (test code = GUICHO) Association of Glomerular Filtration Rate (GFR) and [...] tests). Lab Interpretation Abnormal (test code = 86028-4) [facility] [id number] 10:07:00 Test Item Value Reference Range Interpretation Comments MAGNESIUM (test code = 6624792548) 1.5 mg/dL 1.7-2.4 L Lab Interpretation (test code = Abnormal 46371-3) [facility] Hospital[facility]INE [id number] 13:44:00 Test Item Value Reference Range Interpretation Comments URINE CULTURE (test < 10,000 CFU/mL mixed code = 630-4) aerobic organisms - suggests endogenous microbial contamination [facility] [id number] 10:45:00 Test Item Value Reference Range Interpretation Comments PHOSPHORUS (test code = 8356617243) 3.4 mg/dL 2.5-5 Lab Interpretation (test code = Normal 44297-7) [facility] Metabolic Panel (NA, K, CL, CO2, GLUCOSE, BUN, CREATININE, [place])2020-10-28 10:45:00 Test Item Value Reference Range Interpretation Comments NA (test code = 135 mmol/L 135-145 6855546876) K (test code = 4.0 mmol/L 3.5-5 9840586400) CL (test code = 101 mmol/L 98-108 3611636768) CO2 TOTAL (test code = 31 mmol/L 23-31 4669351018) AGAP (test code = 2-16 1799597262) BUN (test code = 4 mg/dL 7-23 L 9785435157) GLUCOSE (test code = 100 mg/dL 70-110 9192112215) CREATININE (test code = 0.70 mg/dL 0.5-1.04 1948957878) CALCIUM (test code = 8.3 mg/dL 8.6-10.6 L 6697094007) eGFR Calculation mL/min/1.73m2 (Non-) (test code = 5679005530) eGFR Calculation mL/min/1.73m2 () (test code = 7787776227) GUICHO (test code = GUICHO) Association of Glomerular Filtration Rate (GFR) and [...] tests). Lab Interpretation Abnormal (test code = 63656-2) [facility] [id number] 10:45:00 Test Item Value Reference Range Interpretation Comments MAGNESIUM (test code = 9834092777) 1.8 mg/dL 1.7-2.4 Lab Interpretation (test code = Normal 21667-6) [facility] WITH [id number] 10:13:00 Test Item Value Reference Range Interpretation [...] RDW-SD (test code = 48.4 fL 39-49.9 74861-5) RDW-CV (test code = 13.8 % 12-15.5 788-0) PLT (test code = See_Comment H [Automated 777-3) message] The sy stem which generated this result transmitted reference range : 166 - 358 10*3/ ?L. The reference r madelin was not used to interpret this result as normal/abnormal . MPV (test code = 9.1 fL 9.5-12.9 L 68141-8) NRBC/100 WBC (test See_Comment [Automat ed code = 0899994760) message] The system which generated this result transmitted reference range : 0.0 - 10.0 /100 WBCs. The refer ence range was not u sed to interpret th is result as normal/abnormal . NRBC x10^3 (test code <0.01 See_Comment [Auto mated = 9041399379) message] The s ystem which generated this result transmitted reference range : 10*3/?L. The reference range was not used to interpret this result as normal/abnormal . GRAN MAT (NEUT) % 55.3 % (test code = 770-8) IMM GRAN % (test code 0.40 % = 1759672153) LYMPH % (test code = 29.4 % 736-9) MONO % (test code = 9.4 % 5905-5) EOS % (test code = 5.1 % 713-8) BASO % (test code = 0.4 % 706-2) GRAN MAT x10^3(ANC) 3.83 10*3/uL 1.88-7.09 (test code = 4203606546) IMM GRAN x10^3 (test 0.03 10*3/uL 0-0.06 code = 0635199549) LYMPH x10^3 (test code 2.04 10*3/uL 1.32-3.29 = 731-0) MONO x10^3 (test code 0.65 10*3/uL 0.33-0.92 = 742-7) EOS x10^3 (test code = 0.35 10*3/uL 0.03-0.39 711-2) BASO x10^3 (test code 0.03 10*3/uL 0.01-0.07 = 704-7) Lab Interpretation Abnormal (test code = 71552-8) [facility] Dvrjm5706-83-07 07:50:00 Test Item Value Reference Range Interpretation Comments MAGNESIUM (test code = 9427870439) 1.1 mg/dL 1.7-2.4 L Lab Interpretation (test code = Abnormal 25079-8) [facility]ALYSIS2020-12-13 07:50:00 Test Item Value Reference Range Interpretation Comments APPEARANCE (test code = Hazy Clear A 6812182675) COLOR (test code = Yellow Yellow 2367001395) PH (test code = 4.8-8.0 3368290135) SP GRAVITY (test code = 1.003-1.030 3882649198) GLU U QUAL (test code = Normal Normal 2589206635) BLOOD (test code = Negative Negative 9259160153) KETONES (test code = Negative Negative 9032420918) PROTEIN (test code = Negative Negative 2887-8) UROBILIN (test code = Normal Normal 5000607842) BILIRUBIN (test code = Negative Negative 9559865850) NITRITE (test code = Negative Negative 2711609229) LEUK CHELY (test code = 25/uL Negative A 2980347125) RBC/HPF (test code = See_Comment [Autom ated message] 5969303338) The system [employer] generated this result transmitted ref erence range: 0 - 3 HP F. The reference range was not used to int erpret this result as normal/abnormal . WBC/HPF (test code = See_Comment [Autom ated message] 9579649973) The system [employer] generated this result transmitted ref erence range: 0 - 5 HP F. The reference range was not used to int erpret this result as normal/abnormal . BACTERIA (test code = Negative Negative 7357798471) MUCOUS (test code = Slight Negative LPF A 0291085371) SQ EPITH (test code = See_Comment [Auto mated message] 8175091265) The system [employer] generated this result transmitted ref erence range: <=2 HPF. The reference range was not used to int erpret this result as normal/abnormal . Lab Interpretation (test Abnormal code = 50346-7) [facility] Metabolic Panel (NA, K, CL, CO2, GLUCOSE, BUN, CREATININE, CA)2020-10-27 07:45:00 Test Item Value Reference Range Interpretation Comments NA (test code = 135 mmol/L 135-145 1387049358) K (test code = 3.2 mmol/L 3.5-5 L 5048148765) CL (test code = 99 mmol/L 98-108 9241801923) CO2 TOTAL (test code = 35 mmol/L 23-31 H 9080785076) AGAP (test code = 2-16 L 9303113318) BUN (test code = 3 mg/dL 7-23 L 6217906837) GLUCOSE (test code = 104 mg/dL 70-110 6878210801) CREATININE (test code = 0.66 mg/dL 0.5-1.04 8688659264) CALCIUM (test code = 7.5 mg/dL 8.6-10.6 L 3871918897) eGFR Calculation mL/min/1.73m2 (Non-) (test code = 3952426844) eGFR Calculation mL/min/1.73m2 () (test code = 8915645818) GUICHO (test code = GUICHO) Association of Glomerular Filtration Rate (GFR) and [...] tests). Lab Interpretation Abnormal (test code = 36352-6) [facility] with Cgumygmkrfqc1312-62-76 07:24:00 Test Item Value Reference Range Interpretation Comments WBC (test code = See_Comment [Automated 9182-2) message] The sy stem which generated this [...] RDW-SD (test code = 46.6 fL 39-49.9 45512-5) RDW-CV (test code = 13.7 % 12-15.5 788-0) PLT (test code = See_Comment H [Automated 777-3) message] The sy stem which generated this result transmitted reference range : 166 - 358 10*3/ ?L. The reference r madelin was not used to interpret this result as normal/abnormal . MPV (test code = 9.1 fL 9.5-12.9 L 85113-1) NRBC/100 WBC (test See_Comment [Automat ed code = 3805738132) message] The system which generated this result transmitted reference range : 0.0 - 10.0 /100 WBCs. The refer ence range was not u sed to interpret th is result as normal/abnormal . NRBC x10^3 (test code <0.01 See_Comment [Auto mated = 4164819564) message] The s ystem which generated this result transmitted reference range : 10*3/?L. The reference range was not used to interpret this result as normal/abnormal . GRAN MAT (NEUT) % 52.0 % (test code = 770-8) IMM GRAN % (test code 0.50 % = 5856026569) LYMPH % (test code = 34.7 % 736-9) MONO % (test code = 8.6 % 5905-5) EOS % (test code = 3.7 % 713-8) BASO % (test code = 0.5 % 706-2) GRAN MAT x10^3(ANC) 3.19 10*3/uL 1.88-7.09 (test code = 5077196829) IMM GRAN x10^3 (test 0.03 10*3/uL 0-0.06 code = 2084196587) LYMPH x10^3 (test code 2.13 10*3/uL 1.32-3.29 = 731-0) MONO x10^3 (test code 0.53 10*3/uL 0.33-0.92 = 742-7) EOS x10^3 (test code = 0.23 10*3/uL 0.03-0.39 711-2) BASO x10^3 (test code 0.03 10*3/uL 0.01-0.07 = 704-7) Lab Interpretation Abnormal (test code = 43687-3) [facility] COVID CDFVSJGTYLSNFU5236-82-93 00:32:00COVID DMT InterpretationInterpretation/Recommendations: Molecular NAAT Tests for Active Infection with the SARS-CoV-2 Virus: This patient has a history of testing negative on multiple occasions for gnsRSRX-AxP-4 virus that causes COVID-19 illness, with no [...] apply to the following tests offered at [facility] and assume the acceptable specimen type(s) were used: A. Tests for the Identification of SARS-CoV-2 RNA (Molecular NAAT Tests): ?- SARS-CoV-2 PCR assays including PantherAptima, [place] Fusion, [place] RealTime, and [employer] Xpert Xpress. ?- SARS-CoV-2 Rapid ID NOW by the ID NOW assay. ? B. Tests for the Identification of SARS-CoV-2 Antibodies: ?- Chemiluminescent immunoassays including Access SARS-CoV-2 IgM (DXI 600), [employer] Haic-JKBX-WoC-2 IgG (Vitros 5600and Vitros 3600), and [place]arreal SARS-CoV-2 IgG (ARTIFICIAL BREAST FABRICATOR I System). These interpretations are autopopulated into [facility] based on computerized algorithms matching an interpretation code to the patient's setof test results, and a clinical pathologist evaluates the comments for accuracy. However, these comments do not consider testing a patient may have had outside of the [facility] system. If results for COVID-19 [...] lavage fluid (BAL), tracheal aspirate, etc.). ? [facility] LABORATORY SERVICESCOVID YjptsrkWAYH-SpD-5 Rapid ID NOW (no units) ? ? Date ? Value ? 10/24/2020 ? Not Detected ? ? ? 2020 ? Not Detected ? ? ? 09/25/2020 ? Not Detected ? ? ? 09/10/2020 ? Not Detected ?? ? 09/04/2020 ? Not Detected ? ? ? 08/17/2020 ? Not Detected ? ? ? 07/23/2020 ? Not Detected ? [facility] SERVICESAsp[facility] HospitalCBC with Differential 2020-10-26 11:58:00 Test Item [...] RDW-SD (test code = 47.2 fL 39-49.9 34779-3) RDW-CV (test code = 14.5 % 12-15.5 788-0) PLT (test code = See_Comment H [Automated 777-3) message] The sy stem which generated this result transmitted reference range : 166 - 358 10*3/ ?L. The reference r madelin was not used to interpret this result as normal/abnormal . MPV (test code = 10.1 fL 9.5-12.9 07499-2) NRBC/100 WBC (test See_Comment [Automat ed code = 2154993575) message] The system which generated this result transmitted reference range : 0.0 - 10.0 /100 WBCs. The refer ence range was not u sed to interpret th is result as normal/abnormal . NRBC x10^3 (test code <0.01 See_Comment [Auto mated = 0784061597) message] The s [employer] which generated this result transmitted reference range : 10*3/?L. The reference range was not used to interpret this result as normal/abnormal . GRAN MAT (NEUT) % 50.3 % (test code = 770-8) IMM GRAN % (test code 0.50 % = 5887433935) LYMPH % (test code = 36.9 % 736-9) MONO % (test code = 7.6 % 5905-5) EOS % (test code = 4.2 % 713-8) BASO % (test code = 0.5 % 706-2) GRAN MAT x10^3(ANC) 2.76 10*3/uL 1.88-7.09 (test code = 2327457270) IMM GRAN x10^3 (test 0.03 10*3/uL 0-0.06 code = 0166813311) LYMPH x10^3 (test code 2.03 10*3/uL 1.32-3.29 = 731-0) MONO x10^3 (test code 0.42 10*3/uL 0.33-0.92 = 742-7) EOS x10^3 (test code = 0.23 10*3/uL 0.03-0.39 711-2) BASO x10^3 (test code 0.03 10*3/uL 0.01-0.07 = 704-7) Lab Interpretation Abnormal (test code = 24439-0) [facility] Hospital[facility]esium Gzuth3320-93-15 04:43:00 Test Item Value Reference Range Interpretation Comments MAGNESIUM (test code = 8971321320) 1.0 mg/dL 1.7-2.4 L Lab Interpretation (test code = Abnormal 06231-8) [facility] (NA, K, CL, CO2, GLUCOSE, BUN, CREATININE, CA)2020-10-26 04:43:00 Test Item Value Reference Range Interpretation Comments NA (test code = 136 mmol/L 135-145 4600336378) K (test code = 2.8 mmol/L 3.5-5 LL 3826934014) CL (test code = 97 mmol/L 98-108 L 4397959638) CO2 TOTAL (test code = 35 mmol/L 23-31 H 5706130078) AGAP (test code = 2-16 4117503334) BUN (test code = 3 mg/dL 7-23 L 3578814235) GLUCOSE (test code = 116 mg/dL 70-110 H 3223363306) CREATININE (test code = 0.81 mg/dL 0.5-1.04 8009930928) CALCIUM (test code = 7.2 mg/dL 8.6-10.6 L 5528914236) eGFR Calculation mL/min/1.73m2 (Non-) (test code = 1649703462) eGFR Calculation mL/min/1.73m2 () (test code = 0996993109) GUICHO (test code = GUICHO) Association of Glomerular Filtration Rate (GFR) and [...] tests). Lab Interpretation Abnormal (test code = 39364-5) [facility] HospitalPhosphorus Ykyix1885-62-70 04:35:00 Test Item Value Reference Range Interpretation Comments PHOSPHORUS (test code = 8422305867) 3.0 mg/dL 2.5-5 Lab Interpretation (test code = Normal 57640-0) [facility] with Gfqmahfcxdxi5311-47-87 04:11:00 Test Item Value Reference Range Interpretation [...] RDW-SD (test code = 45.6 fL 39-49.9 97027-3) RDW-CV (test code = 13.4 % 12-15.5 788-0) PLT (test code = See_Comment H [Automated 777-3) message] The sy stem which generated this result transmitted reference range : 166 - 358 10*3/ ?L. The reference r madelin was not used to interpret this result as normal/abnormal . MPV (test code = 9.2 fL 9.5-12.9 L 01583-2) NRBC/100 WBC (test See_Comment [Automat ed code = 8071672192) message] The system which generated this result transmitted reference range : 0.0 - 10.0 /100 WBCs. The refer ence range was not u sed to interpret th is result as normal/abnormal . NRBC x10^3 (test code <0.01 See_Comment [Auto mated = 4645571672) message] The s ystem which generated this result transmitted reference range : 10*3/?L. The reference range was not used to interpret this result as normal/abnormal . GRAN MAT (NEUT) % 55.9 % (test code = 770-8) IMM GRAN % (test code 0.40 % = 2338932647) LYMPH % (test code = 31.9 % 736-9) MONO % (test code = 8.4 % 5905-5) EOS % (test code = 3.1 % 713-8) BASO % (test code = 0.3 % 706-2) GRAN MAT x10^3(ANC) 3.80 10*3/uL 1.88-7.09 (test code = 8153148635) IMM GRAN x10^3 (test 0.03 10*3/uL 0-0.06 code = 2787279797) LYMPH x10^3 (test code 2.17 10*3/uL 1.32-3.29 = 731-0) MONO x10^3 (test code 0.57 10*3/uL 0.33-0.92 = 742-7) EOS x10^3 (test code = 0.21 10*3/uL 0.03-0.39 711-2) BASO x10^3 (test code <0.03 0.01-0.07 = 704-7) Lab Interpretation Abnormal (test code = 44114-2) [facility] HospitalCT ABDOMEN PELVIS W FRVGVYHU2473-23-54 14:39:02 1. ?Postsurgical changes of recent ileostomy [...] TECHNIQUE AND FINDINGS: [facility], labeled with the patients name, [...] [facility] FINDINGS[facility] [...] reviewed this study and agree with theabove report.[facility] HospitalCOVID-19 (ID NOW RAPID TESTING)2020-10-25 01:48:00 Test Item Value Reference Range Interpretation Comments SARS-CoV-2 Rapid ID NOW Not Detected Not Detected (test code = 50936-4) GUICHO (test code = GUICHO) ID NOW COVID-19 Assay is an isothermal nucleic acid amplification test intended for the qualitative detection of nucleic acid from SARS-CoV-2 viral RNA in nasopharyngeal ([employer]TAIL [employer]TE [employer]) specimens. It is used under Emergency Use [...] acid from SARS-CoV-2 viral RNA in nasopharyngeal (RETAIL [employer]TE [employer]PER[employer]OR) specimens. It is used under Emergency Use [...] indicated. Lab Interpretation Normal (test code = 60287-9) [facility] METABOLIC PANEL (NA, K, CL, CO2, GLUCOSE, BUN, CREATININE, CA)2020-10-24 23:16:00 Test Item Value Reference Range Interpretation Comments NA (test code = 137 mmol/L 135-145 8017454750) K (test code = 3.5 mmol/L 3.5-5 8751365765) CL (test code = 101 mmol/L 98-108 0848445326) CO2 TOTAL (test code = 31 mmol/L 23-31 7733230156) AGAP (test code = 2-16 0850273515) BUN (test code = 5 mg/dL 7-23 L 5519481845) GLUCOSE (test code = 80 mg/dL 70-110 4143621621) CREATININE (test code = 0.57 mg/dL 0.5-1.04 6166337461) CALCIUM (test code = 7.4 mg/dL 8.6-10.6 L 8264161731) eGFR Calculation mL/min/1.73m2 (Non-) (test code = 0138782186) eGFR Calculation mL/min/1.73m2 () (test code = 8845926582) GUICHO (test code = GUICHO) Association of Glomerular Filtration Rate (GFR) and [...] tests). Lab Interpretation Abnormal (test code = 95638-8) [facility] WITH [id number] 23:09:00 Test Item Value Reference Range Interpretation Comments WBC (test code = See_Comment [Automated 4185-2) message] The sy stem which generated this result transmitted reference range : 4.30 - 11.10 10*3/?L. The reference range was not used to interpret this result as normal/abnormal . RBC (test code = See_Comment L [Automated 258-8) message] The sy stem which generated this [...] RDW-SD (test code = 46.5 fL 39-49.9 63545-2) RDW-CV (test code = 13.4 % 12-15.5 788-0) PLT (test code = See_Comment H [Automated 777-3) message] The sy stem which generated this result transmitted reference range : 166 - 358 10*3/ ?L. The reference r madelin was not used to interpret this result as normal/abnormal . MPV (test code = 9.4 fL 9.5-12.9 L 28195-7) NRBC/100 WBC (test See_Comment [Automat ed code = 6510475596) message] The system which generated this result transmitted reference range : 0.0 - 10.0 /100 WBCs. The refer ence range was not u sed to interpret th is result as normal/abnormal . NRBC x10^3 (test code <0.01 See_Comment [Auto mated = 0415492655) message] The s ystem which generated this result transmitted reference range : 10*3/?L. The reference range was not used to interpret this result as normal/abnormal . GRAN MAT (NEUT) % 54.7 % (test code = 770-8) IMM GRAN % (test code 0.50 % = 5464191983) LYMPH % (test code = 35.9 % 736-9) MONO % (test code = 6.3 % 5905-5) EOS % (test code = 2.3 % 713-8) BASO % (test code = 0.3 % 706-2) GRAN MAT x10^3(ANC) 3.37 10*3/uL 1.88-7.09 (test code = 1773475710) IMM GRAN x10^3 (test 0.03 10*3/uL 0-0.06 code = 9438000688) LYMPH x10^3 (test code 2.21 10*3/uL 1.32-3.29 = 731-0) MONO x10^3 (test code 0.39 10*3/uL 0.33-0.92 = 742-7) EOS x10^3 (test code = 0.14 10*3/uL 0.03-0.39 711-2) BASO x10^3 (test code <0.03 0.01-0.07 = 704-7) Lab Interpretation Abnormal (test code = 35527-6) [facility] HospitalCLOSTRIDIUM DIFFICILE [id number] 17:18:00 Test Item Value Reference Range Interpretation Comments Clostridioides (Clostridium) Negative Negative difficile (test code = 30995-5) Lab Interpretation (test code = Normal 47850-4) [facility] (NA, K, CL, CO2, GLUCOSE, BUN, CREATININE, CA)2020-10-17 23:42:00 Test Item Value Reference Range Interpretation Comments NA (test code = 135 mmol/L 135-145 4044227405) K (test code = 4.0 mmol/L 3.5-5 3535766528) CL (test code = 105 mmol/L 98-108 1206117853) CO2 TOTAL (test code = 22 mmol/L 23-31 L 7032760922) AGAP (test code = 2-16 8031709547) BUN (test code = 8 mg/dL 7-23 5779857468) GLUCOSE (test code = 127 mg/dL 70-110 H 9766940698) CREATININE (test code = 0.96 mg/dL 0.5-1.04 0856019734) CALCIUM (test code = 8.7 mg/dL 8.6-10.6 4214778281) eGFR Calculation mL/min/1.73m2 (Non-) (test code = 8495410659) eGFR Calculation mL/min/1.73m2 () (test code = 1627497555) GUICHO (test code = GUICHO) Association of Glomerular Filtration Rate (GFR) and [...] tests). Lab Interpretation Abnormal (test code = 84649-3) [facility] HospitalS[facility] PATHOLOGY [id number] 19:12:00 Test Item Value Reference Range Interpretation Comments Case Report (test code Surgical Pathology ? ? = [id number]) ?Case: [id number] ? Authorizing Provider: ?Darren Chun MD ?Collected: ? 10/14/2020 0901 ?Ordering Location: ? ? [facility] OR ? Received: ?10/14/2020 1106 ? Department ? Pathologist: ? Marian Gr MD ? Specimens: ? A) - STOMA, Ileostomy ? B) - COLON, Ileocolic anastamosis ? Final Diagnosis (test u9siuZWbWXVyp5wfBBSedY code = 3136237956) FuZzEwMzNcZnRuYmpcdWMx CLsledClJJsoy7KwU9DrNt AwMFxhbnNpXGRlZmxhbmcx EXCaYYA0baSlUHZqNPlxBI FoAJgiJa4bqMQsyHjsXqSb YSAor7mlbnJKuceciLe1d1 mmNRTtUqF0qEFhKWyiM5mc zlJjwXZfEDAuJUm9qX86HQ RtdB2cxNYqQBgqprWnHpD3 LAfcGDMrSdS2KENksPYcOV LhI5jqDJNxGBguXQAyFVtp wSJvMZZ2kHoqv4Z3hPMvzJ BfwYuzCoGzIyTlEIGJc2Cp WOp8oFstX9TbIKHnLnD6mV QgUGFyYWdyYXBoIEZvbnQ7 pS34YMkjuiH3oWAcv8Rtq5 2qp951fM6qyZUhPRX5EVCk UMTgvABnTDEuZNM5SSDxhL PhL5sjCRlgTN7bujucTOF3 MFxtYXJndDcyMFxtYXJnYj SjdGYcVJBskXqhERweu893 UKY1OmTyVD6dX4Isl6Q0aX 9maXRcZGVmdGFiNzIwXGZv nf8qlXZcEDrsa6JiGAN6kv W1kLTbhPYyFTIqUT77Lbpj n5NrAbeoISQ4GXRgqxTkp1 Sed4pdAeCkidJiI3auF5Cn ZHJoZWFkXHBnYnJkcmZvb3 Qcv5MaoUXehAi9e8jcTIPa WBBiaVpzu5gjKSK8OTMpQ1 N4wZTac2ytCWohLURywAJ8 mzEgKPBbaKXeS8ZgbH5fQH dlMU8ckbx3e6kmTpGlCL6t skzsx8xzPKblZYPxXUA0Ew SoTZRxy4WxvcrcToGjx6Vn fXAzGCjhR17bl534UTUdqe XzG1yeaCGancwllFZenqnx LOpggrZ4HHOdVMVnTOvbEN YxXGZzMjBcbGFuZzEwMzNc aGljaFxmMVxkYmNoXGYxXG esM6loRzAeTdGlOQtyXDRc NS1sZ54PP71wBIjMGQ1UKW 3PQVADRL5MPUfhDDlVKHAN R189QUNkakAqLUDhTG5xJn MQZVaTEWJFTW7vLM2MNQpX LRMMQTSQH4BGKUADSQUJZR EHA8DVPEEMIFPGSpaYP0ON D60wQE0DIYIACcVIL5RnUN VLC2mIElewhTVqJUDyCCPh QVFtI11LM3rEJRQJISCUNS ENQTnZOW1TJR4NMAvtLTDv oHJeYVDvAPZGKI6LSJYIXY NPW85MYURmDK1QY0LVGC5T EBHoYLTKD1iNCP4CZwvdVD IgICAgICAtIEJFTklHTiBD I9yTNhUIWzEmTArVHQklQS eBX9DWRFtQSJatK53KC3CJ SPOPPTCBB6WTDRvuY82OY6 oXCTNUBIVZQBAGTTdFJF9G Z7sCZ5stVUKuTKIiEBEdPD FPFuDPGE5CS3BWH5toYYK6 h1thrWVbPTCytNChUpUvTM WjFVLvc1dbIKAncACnWxJt MzNcZnRuYmpcdWMxXGRlZm Dzp2gqw342pGHwr2zoBLQd AyG2gTAcOGYfjJbkbvh1bV siYvYcRFYnb5fxtvOlSfQq OSRyNPSmDMDxtFCbK463WM TvDGszt9kwk3PbRXFkeVMz a9W3MIZIEGpxCvVzE624k7 sbg3gpsfUsxPV2JYCfHVM7 RYdeqoAsgzF2MMwsbTDnQf W4GDuukjDkOCjgufEoisJh Yjw4IBZhM910EQC4nXqsk8 liTPJ3HVFhSHCtPxroEn7j rMIyG954RLJlSIZFFPIsgN c0YVJylcPqseWgmEWGd356 N986c3pfQCDtrfAzjXnZlb lox4gdL671ZXDlkEErcdGt WbWkRIJbcVRpjVX3IEYvSM 4jjmwdWMwmUXqqTZPsviD7 YXMofXFmV1RsGPLiCJ9cjp ouUBD3WIcmXPOhXWP0UeFf WVXpo4Kwjew3OzApws9mpn 48FCP3g3SzxVucSJF1VWR5 MaYtYl9pcMCfUDMlAQ8vXe EtbAFqNMDahv26sKadJUyq fzSblK1pJlThBLVrpILmTX KaAL5sjFGfILRbuS8ipdrk XHBnYnJkcmhlYWRccGdicm MtHq8toYnhUPI9HXniD7bm tK1hXtU0FBeqO7uekR7kVL r7DBavfHY8QCChcY7ySX2r sniqp1mwZCocRDziOUJkww Y7rtS2DSHodPQnB9TzlX7q AELmOL2kjhjby3ynZEW1DH poZJHbRIL0AbZzLOPzm4Bq ytr2HoIcl6IabNZaOZsnR8 3jr599PABdtjUtK2bltDRs amxnyRBnittjKHxwwaV2PE FsXHBsYWluXGYxXGZzMjBc bGFuZzEwMzNcaGljaFxmMV bxUsXtNMZmHSrvT2upEpAf F0FiCARpGlDcaZYyNDbwjB A7WNAgPCVnu81kzQf4BLGt ljvep1CwZSIvdKLakKLzjC 9likLjt4nuYMQbLBZdIYIr R4KmQHZ8yAEpCALmfUYbpH X8ZA2blxNzSP1yHTGyGbyf cmVzaWRlbnRzLCBmZWxsb3 ohMO8uEYKypBceuD8ykXH9 BRTur6kmoKDrjJNyn3qza0 UgbmFtZShzKSBtYXkgYXBw KVVwIY0yBRYmkSGltuMwq0 A9YrdjqQGsxzblYrsfiiD4 YOevqlsePRJxSWsrZ8byEx EvLUEwaQrjNkjfz7PnSHCn XGZzMjhccGFyfX0= Clinical Information Ileostomy care [Z43.2] (test code = 4935477587) Gross Description (test k8qhnOOwBIAzsCWhKyIqAY code = [id number]) YnCWGct4pxXZUwiTEgXmZe MzNcZnRuYmpcdWMxXGRlZm Qjj6wao184jJJxf3slGKNh GtR8oBMpUWAenDLkK793RB HzOCpqy4jho0VnOGVioYQn f6J1SBUHbklhlDz8wKteE0 1kq7B9XgiuV0khVOGgPMRv Y8WlRZ8gJEUyBob8YMR6YC T9HGZfHBXeM8FiGV3jNOOi mTBxLEl8r0qcuYslRBBkNE S9f8exLKwebjVjFG0huu9u cUw6e9fpnhQdGSTaECWzqB GMJBPlE9OwkYuwPy1urDf7 sLrlHataEAJ7Hyv1RG0cty 33tik4bSwsRXAyewtcTuU4 SSljXLPwellaARv3ERcuWY SgbFXvVTWrfPOuK6NoIRvh BO4enfu1CuAcKA6aaijrPE bdAKOrULW3SuVcIFJtz0Rz uldbUsBkpb9tki94AUG8x6 SmlKzzMAS0RZR7NaDyQx0z zWZyETYxCR7qFjBliUMxOB Wrgq87wTepLTnsxdJlwY8q VpLvVIOldEJtJTZaWB4kjH RzLFUqpC2clfggXNOoBvNo usfgLHItzHzcdxUsJk5mbP noVTG5JWwrB6ijiF2aOzL8 HDzcT8twfL0bSDo0HFwfvB A7FTRwdK9jWY2boctsy5bl YQT7FQkrSHKrqvV6siYqPY LosDEqX4CmsC44FqUacWNy O7EmtB3pAEayZFOpjfl5Cd XkPn1fhQMtvBS9INlzCnlk YWdlXHBnbmNvbnRccGduZG VjXHBsYWluXHBsYWluXGYw GNAeNoWvoYskyUgtzV7jXv GxDtBvPUabGX9tSKIpT3cx yJDmTMGfGQAgS8ecLwAuaC 9jaFxmMVxmczIwIFNwZWNp zTVzULBmfnAlQPa2MOJcKc Yco1corRLyXItpXAY4qHFp ePQ4yDXuwJnuHV4pdVOeBK OEUK64kWRlytdlUdBnEsHt iMpai6QqXHOjuIXgp4PzbT hza6EevICiGQOnHEMky10u qVU6mePzBtJgopZjgEJwn7 UzuXcwbWYaYBTup89ar1Vr L4shXO4od2b7lRGyTEE0eg tjM9ZynBtln3S4dVEjUAGa vO7aNNZqrjKlUQJwlJBibE FqSZVmv9P4WFQtD81vtxWp v6EgRu91NXwuJYJeHESzpV TrxqGgKI6eeZldDT3zBSGa NiBjbSBkaWFtZXRlcikuIC CZlCFks0NuFZ55M36zBYIw qAM8mYAmi2OivYYjuBWcSS GhgwHcmVZoiWOdjN6jF6Fw kS87SE5dj3i6nPZrSACsxZ 7pymgmLI2aLQGdkJCnwIKw VPFvpS7kCBTjRtGqrJaxTL HyFQGrvIJcoJKrbAUwU2td NUczYLIajW26KHYdBB1oYV FpOSNnuJFwfJ6akqBvfoPn sFDwCTPhwwP9TDVwxV3dUH VucmVtYXJrYWJsZSBpbnRl w9AdqhFwXO75O01jME2pSh QefcHnHR90KCTkbhVnLgUl dI19vZovj41fl5RhrYDfdZ KfVPpoyLowxuIxMRA7sL1o kjGhisRhm5BpsAo2zSExXL FzIEExXHBsYWluXGYwXGZz MjBcbGFuZzEwMzNcaGljaF yxLVskLtVpELZaDKzrO6tc ApUrQxZhXAx5GLEeDKOtWh r5HNIrBModBJLpSALsTmVo bGFuZzEwMzNcaGljaFxmMV bqXiRdKRGwLUzqX9evKrBj LbBkPBPMFu0uqIZyODCbah EIoMZigB8isuDAYXOiN6Yq dmVkIGZyZXNoIGxhYmVsZW Bmg3s6dIM0lGFdqNF9jOTg eKbhGK4lzPKyBALLTM32eP RdcwucIaXiUbJxxYgwu4Tb HBLoyCYhB53vxWQfFO3lw3 PevX3pdDRrACTpJTNlh81w vXX0zlWjXjDflpYkewXgE0 ImPSLca6LxnKMpfHXaUzQv sxDweF9ye5VvSDGds1aqtK Y6iUKzAS89nPDubFxdINC9 NBGnTMVuBPNqpA8sEAm9Hs SobBIvRvUkrYFtZilgH16k LfOfR3NzfBuzQU8bghxxsr DcIWJkXCFdeYQmn9BbPYHs NFBiokNvtzS2dfBocXStk2 IrjEDdJ04ml82qQnXqnaLv oHapKJnxmFCpo9DmYCPoJE SdmmNvBQ45SbBsBLzgTMtr fPNfx5GdERwkyrWvTLFlxL mdsZKykUWde7p4uW1tITgp bHltcGhvaWQgaHlwZXJwbG JwhKSuKUSfJRRdOY1uBS9t TMBpdBDtd7PjqEA3sIGfDJ ZtW9Caj55qQITaYNVjcWLw lZH5ICViMCXvZcSsiMsfiD 2vQaXmZqYaOAjpYJ5pGTCi B3csaYRgCFZxAIJuG0ywFv CezW7hyFpoJRsdctQdMKS3 BvHfYFdoAIPyrRbnnW6vZu DeMzMyUDojXV9sSQYuC7uo lWBxGYOzFNUcW9vgTbGhrA 9jaFxmMVxmczIwIEIyLlxw YXJccGFyXHBhcmRccGxhaW 5cZjBcZnMyNFxwbGFpblxm MVxmczIwXGxhbmcxMDMzXG xmV4qaItYkMZJwmQodHLtp m1AeRTOeGHJuMtEmRTB1zP PChF71ASIsNJTuJJEltBua wQ0hpVZ9OEInn6hqeMSvjT lccGFyfQ== Embedded Images (test code = 0899439050) [facility]MR[facility]A Screen by [id number] 21:21:00 Test Item Value Reference Range Interpretation Comments MSSA Screen by Phill BERMUDEZ (test code Negative Negative = 31327-0) MRSA/MSSA Positive? (test code = No No 0931610490) Lab Interpretation (test code = Normal 80060-6) [facility] HospitalUrinalysis2020-11-18 06:06:00 Test Item Value Reference Range Interpretation Comments APPEARANCE (test code = Cloudy Clear A 9498346704) COLOR (test code = Kathleen Yellow A 9073123819) PH (test code = 4.8-8.0 6935349611) SP GRAVITY (test code = 1.003-1.030 6794579508) GLU U QUAL (test code = Normal Normal 5061066130) BLOOD (test code = 1+ Negative A 0097473158) KETONES (test code = 5 mg/dL Negative A 8998872139) PROTEIN (test code = 100 mg/dL Negative A 2887-8) UROBILIN (test code = 2.0 mg/dL Normal A 6950505594) BILIRUBIN (test code = Negative Negative 5940662930) NITRITE (test code = Negative Negative 8651031321) LEUK CHELY (test code = Negative Negative 5520516725) RBC/HPF (test code = See_Comment H [Autom ated message] 9252110077) The system [employer] generated this result transmit carl reference range : 0 - 3 HPF. The refe rence range was not u sed to interpret th is result as normal/abnormal . WBC/HPF (test code = See_Comment [Autom ated message] 8786327764) The system [employer] generated this result transmit carl reference range : 0 - 5 HPF. The refe rence range was not u sed to interpret th is result as normal/abnormal . BACTERIA (test code = Moderate Negative A 9907067132) MUCOUS (test code = Marked Negative LPF A 8956528609) SQ EPITH (test code = HPF 7795539569) CA OXALATE (test code = See_Comment H [Au tomated message] 2025923768) The system [employer] generated this result transmit carl reference range : <=1 HPF. The refere nce range was not u sed to interpret th is result as normal/abnormal . HYAL CAST (test code = See_Comment H [Aut omated message] 5751843586) The system [employer] generated this result transmit carl reference range : <=2 LPF. The refere nce range was not u sed to interpret th is result as normal/abnormal . GRAN CASTS (test code = See_Comment H [Au tomated message] 6350219837) The system [employer] generated this result transmit carl reference range : <=1 LPF. The refere nce range was not u sed to interpret th is result as normal/abnormal . Lab Interpretation (test Abnormal code = 31082-8) [facility] HospitalHepatic Function Panel (ALB, T.PRO, BILI T, BU/BC, ALT, AST, ALK PHOS)2020-10-02 05:46:00 Test Item Value Reference Range Interpretation Comments TOTAL BILI (test code = 2143758829) 1.0 mg/dL 0.1-1.1 BILI UNCON (test code = 0805559219) 0.6 mg/dL 0.1-1.1 BILI CONJ (test code = 6474389843) 0.0 mg/dL 0-0.3 T PROTEIN (test code = 6073698665) 9.9 g/dL 6.3-8.2 H ALBUMIN (test code = 2976659683) 5.4 g/dL 3.5-5 H ALK PHOS (test code = 0550093546) 153 U/L 34-122 H ALTv (test code = 1742-6) 62 U/L 5-35 H AST(SGOT) (test code = 6252518664) 51 U/L 13-40 H Lab Interpretation (test code = Abnormal 08432-3) [facility] HospitalLipase [id number] 05:46:00 Test Item Value Reference Range Interpretation Comments LIPASE (test code = 3040941822) 117 U/L 0-220 Lab Interpretation (test code = Normal 19593-4) [facility] HospitalBasic Metabolic Panel (NA, K, CL, CO2, GLUCOSE, BUN, CREATININE, CA)2020-10-02 05:46:00 Test Item Value Reference Range Interpretation Comments NA (test code = 135 mmol/L 135-145 6810958138) K (test code = 4.4 mmol/L 3.5-5 3130953304) CL (test code = 102 mmol/L 98-108 0957149509) CO2 TOTAL (test code = 19 mmol/L 23-31 L 2653698781) AGAP (test code = 2-16 8205341008) BUN (test code = 19 mg/dL 7-23 0124352355) GLUCOSE (test code = 135 mg/dL 70-110 H 2114340192) CREATININE (test code = 1.19 mg/dL 0.5-1.04 H 6290059790) CALCIUM (test code = 11.3 mg/dL 8.6-10.6 H 4161419667) eGFR Calculation mL/min/1.73m2 (Non-) (test code = 6783136812) eGFR Calculation mL/min/1.73m2 () (test code = 2105698921) GUICHO (test code = GUICHO) Association of Glomerular Filtration Rate (GFR) and [...] tests). Lab Interpretation Abnormal (test code = 69654-3) [facility] with [id number] 05:34:00 Test Item Value Reference Range Interpretation Comments WBC (test code = See_Comment [Automated 2590-2) message] The sy stem which generated this [...] RDW-SD (test code = 40.6 fL 39-49.9 41001-9) RDW-CV (test code = 11.9 % 12-15.5 L 788-0) PLT (test code = See_Comment H [Automated 777-3) message] The sy stem which generated this result transmitted reference range : 166 - 358 10*3/ ?L. The reference r madelin was not used to interpret this result as normal/abnormal . MPV (test code = 9.9 fL 9.5-12.9 71031-1) NRBC/100 WBC (test See_Comment [Automat ed code = 1261287849) message] The system which generated this result transmitted reference range : 0.0 - 10.0 /100 WBCs. The refer ence range was not u sed to interpret th is result as normal/abnormal . NRBC x10^3 (test code <0.01 See_Comment [Auto mated = 7695983276) message] The s ystem which generated this result transmitted reference range : 10*3/?L. The reference range was not used to interpret this result as normal/abnormal . GRAN MAT (NEUT) % 38.8 % (test code = 770-8) IMM GRAN % (test code 0.20 % = 3713427529) LYMPH % (test code = 51.7 % 736-9) MONO % (test code = 7.4 % 5905-5) EOS % (test code = 0.9 % 713-8) BASO % (test code = 1.0 % 706-2) GRAN MAT x10^3(ANC) 2.27 10*3/uL 1.88-7.09 (test code = 5988866518) IMM GRAN x10^3 (test <0.03 0-0.06 code = 7265295244) LYMPH x10^3 (test code 3.02 10*3/uL 1.32-3.29 = 731-0) MONO x10^3 (test code 0.43 10*3/uL 0.33-0.92 = 742-7) EOS x10^3 (test code = 0.05 10*3/uL 0.03-0.39 711-2) BASO x10^3 (test code 0.06 10*3/uL 0.01-0.07 = 704-7) Lab Interpretation Abnormal (test code = 98302-2) [facility] HospitalHCV BY [id number] 17:03:00 Test Item Value Reference Range Interpretation Comments HCV by Real-Time Not Detected Not detected IU/mL PCR (test code = 1935886960) GUICHO (test code = [employer] m2000 RealTime HCV GUICHO) [facility] manager-polymerase chain reaction(RT-PCR) assay is used. It is [...] 0 IU/mL,>100,000,000 IU/mL: >upper limit of quantification. [facility] HospitalCOM. METABOLIC PANEL ([id number])2020-09-16 15:03:00 Test Item Value Reference Range Interpretation Comments NA (test code = 135 mmol/L 135-145 7732826983) K (test code = 4.4 mmol/L 3.5-5 9112403424) CL (test code = 111 mmol/L 98-108 H 5879027550) CO2 TOTAL (test code = 21 mmol/L 23-31 L 9165908332) AGAP (test code = 2-16 7067826220) BUN (test code = 11 mg/dL 7-23 9455737623) GLUCOSE (test code = 115 mg/dL 70-110 H 4880617286) CREATININE (test code = 0.83 mg/dL 0.5-1.04 2697811054) TOTAL BILI (test code = 0.5 mg/dL 0.1-1.6 0123635088) CALCIUM (test code = 8.3 mg/dL 8.6-10.6 L 6711073373) T PROTEIN (test code = 5.4 g/dL 6.3-8.2 L 5850177747) ALBUMIN (test code = 2.8 g/dL 3.5-5 L 4300375367) ALK PHOS (test code = 71 U/L 34-122 1678447434) ALTv (test code = 31 U/L 5-35 1742-6) AST(SGOT) (test code = 31 U/L 13-40 6687803699) eGFR Calculation mL/min/1.73m2 (Non-) (test code = 6643498850) eGFR Calculation mL/min/1.73m2 () (test code = 6428735751) GUICHO (test code = GUICHO) Association of Glomerular Filtration Rate (GFR) and [...] tests). Lab Interpretation Abnormal (test code = 79631-5) [facility]. METABOLIC PANEL (26925)2020-09-15 11:19:00 Test Item Value Reference Range Interpretation Comments NA (test code = 135 mmol/L 135-145 7434252199) K (test code = 3.9 mmol/L 3.5-5 4045055941) CL (test code = 104 mmol/L 98-108 2120528430) CO2 TOTAL (test code = 27 mmol/L 23-31 0451847722) AGAP (test code = 2-16 5855567530) BUN (test code = 15 mg/dL 7-23 9375604796) GLUCOSE (test code = 153 mg/dL 70-110 H 2070547503) CREATININE (test code = 0.91 mg/dL 0.5-1.04 4790668975) TOTAL BILI (test code = 0.4 mg/dL 0.1-1.5 0763930777) CALCIUM (test code = 9.2 mg/dL 8.6-10.6 1828241745) T PROTEIN (test code = 7.2 g/dL 6.3-8.2 5495450169) ALBUMIN (test code = 3.8 g/dL 3.5-5 9379023373) ALK PHOS (test code = 106 U/L 34-122 3141800069) ALTv (test code = 43 U/L 5-35 H 1742-6) AST(SGOT) (test code = 28 U/L 13-40 5127561486) eGFR Calculation mL/min/1.73m2 (Non-) (test code = 4957107147) eGFR Calculation mL/min/1.73m2 () (test code = 5207804098) GUICHO (test code = GUICHO) Association of Glomerular Filtration Rate (GFR) and [...] tests). Lab Interpretation Abnormal (test code = 61954-1) [facility] HospitalHEPATIC FUNCTION PANEL (40355) (ALB,T.PRO,BILI T,BU/BC,ALT,AST,ALK PHOS)2020-09-14 19:50:00 Test Item Value Reference Range Interpretation Comments TOTAL BILI (test code = 6632735255) 0.5 mg/dL 0.1-1.1 BILI UNCON (test code = 5655406121) 0.4 mg/dL 0.1-1.1 BILI CONJ (test code = 5406331699) 0.0 mg/dL 0-0.3 T PROTEIN (test code = 7268572707) 6.5 g/dL 6.3-8.2 ALBUMIN (test code = 2479252570) 3.4 g/dL 3.5-5 L ALK PHOS (test code = 8663316099) 95 U/L 34-122 ALTv (test code = 1742-6) 45 U/L 5-35 H AST(SGOT) (test code = 2371599179) 31 U/L 13-40 Lab Interpretation (test code = Abnormal 64032-1) [facility] HospitalCREATINE [id number] 18:49:00 Test Item Value Reference Range Interpretation Comments CK (test code = 1167610905) 44 U/L 33-194 Lab Interpretation (test code = Normal 90120-9) [facility] (NA, K, CL, CO2, GLUCOSE, BUN, CREATININE, CA)2020-09-14 17:05:00 Test Item Value Reference Range Interpretation Comments NA (test code = 136 mmol/L 135-145 3170172519) K (test code = 3.9 mmol/L 3.5-5 7377719690) CL (test code = 104 mmol/L 98-108 9840270623) CO2 TOTAL (test code = 27 mmol/L -31 7869970233) AGAP (test code = 2-16 2631523233) BUN (test code = 17 mg/dL 7-23 4848786968) GLUCOSE (test code = 114 mg/dL 70-110 H 2297411691) CREATININE (test code = 0.84 mg/dL 0.5-1.04 1009143545) CALCIUM (test code = 8.9 mg/dL 8.6-10.6 1655885987) eGFR Calculation mL/min/1.73m2 (Non-) (test code = 2102480505) eGFR Calculation mL/min/1.73m2 () (test code = 1656385497) GUICHO (test code = GUICHO) Association of Glomerular Filtration Rate (GFR) and [...] tests). Lab Interpretation Abnormal (test code = 40822-4) [facility] B SURFACE [id number] 16:44:00 Test Item Value Reference Range Interpretation Comments HBsAB (test code = Negative 5898288795) HBsAb mIU/mL Semi-Quantitative (test code = 9848890203) GUICHO (test code = Interpretation: GUICHO) ?Hepatitis B Surface Antibody ? Negative - Patient is considered to be not immune to infection with HBV. ? ? Positive - Anti-HBs detected at greater than or equal to 12 mIU/mL. ?Patient is considered to be immune to infection with HBV. ? [facility] B SURFACE [id number] 16:27:00 Test Item Value Reference Range Interpretation Comments HBsAg Semi-Quantitative (test code = Negative Negative 5195-3) [facility] HospitalMAGNESIUM2020-10-31 04:05:00 Test Item Value Reference Range Interpretation Comments MAGNESIUM (test code = 6072465958) 1.6 mg/dL 1.7-2.4 L Lab Interpretation (test code = Abnormal 70804-3) [facility] HospitalTROPONIN [id number] 20:02:00 Test Item Value Reference Range Interpretation Comments TROPONIN I (test <0.012 See_Comment [Automated code = 3683755481) message] The system which generated this result transmitted reference range : <=0.034 ng/mL. The reference range was not used to interpr et this result as normal/abnormal . GUICHO (test code = Equal or Less than GUICHO) 0.034 ng/ml---Normal ?Note: Cardiac troponin begins to [...] ? Lab Interpretation Normal (test code = 06176-9) [facility] HospitalCOMP. METABOLIC PANEL (72642)2020-09-13 17:43:00 Test Item Value Reference Range Interpretation Comments NA (test code = 139 mmol/L 135-145 0435717079) K (test code = 4.5 mmol/L 3.5-5 1672220482) CL (test code = 99 mmol/L 98-108 7738251294) CO2 TOTAL (test code = 31 mmol/L 23-31 8300673820) AGAP (test code = 2-16 1766907390) BUN (test code = 14 mg/dL 7-23 0075218300) GLUCOSE (test code = 115 mg/dL 70-110 H 9859963095) CREATININE (test code = 1.31 mg/dL 0.5-1.04 H 2411243608) TOTAL BILI (test code = 1.4 mg/dL 0.1-1.1 H 5875180182) CALCIUM (test code = 10.6 mg/dL 8.6-10.6 0565641025) T PROTEIN (test code = 9.1 g/dL 6.3-8.2 H 7559289096) ALBUMIN (test code = 4.7 g/dL 3.5-5 7884039980) ALK PHOS (test code = 160 U/L 34-122 H 3964728053) ALTv (test code = 84 U/L 5-35 H 1742-6) AST(SGOT) (test code = 51 U/L 13-40 H 8526782557) eGFR Calculation mL/min/1.73m2 (Non-) (test code = 6318200229) eGFR Calculation mL/min/1.73m2 () (test code = 5528356638) GUICHO (test code = GUICHO) Association of Glomerular Filtration Rate (GFR) and [...] tests). Lab Interpretation Abnormal (test code = 77470-0) [facility] HospitalLIPASE2020-10-30 17:43:00 Test Item Value Reference Range Interpretation Comments LIPASE (test code = 1466956779) 88 U/L 0-220 Lab Interpretation (test code = Normal 08623-4) [facility] HospitalCB WITH [id number] 17:31:00 Test Item Value Reference Range Interpretation Comments WBC (test code = See_Comment [Automated 1390-2) message] The sy stem which generated this result transmitted reference range : 4.30 - 11.10 10*3/?L. The reference range was not used to interpret this result as normal/abnormal . RBC (test code = See_Comment [Automated 109-8) message] The sy stem which generated this [...] RDW-SD (test code = 44.9 fL 39-49.9 58099-0) RDW-CV (test code = 12.9 % 12-15.5 788-0) PLT (test code = See_Comment H [Automated 237-3) message] The sy stem which generated this result transmitted reference range : 166 - 358 10*3/ ?L. The reference r madelin was not used to interpret this result as normal/abnormal . MPV (test code = 9.7 fL 9.5-12.9 89484-3) NRBC/100 WBC (test See_Comment [Automat ed code = 6295080531) message] The system which generated this result transmitted reference range : 0.0 - 10.0 /100 WBCs. The refer ence range was not u sed to interpret th is result as normal/abnormal . NRBC x10^3 (test code <0.01 See_Comment [Auto mated = 0811833878) message] The s ystem which generated this result transmitted reference range : 10*3/?L. The reference range was not used to interpret this result as normal/abnormal . GRAN MAT (NEUT) % 80.0 % (test code = 770-8) IMM GRAN % (test code 0.50 % = 6267157506) LYMPH % (test code = 10.4 % 736-9) MONO % (test code = 7.1 % 5905-5) EOS % (test code = 1.5 % 713-8) BASO % (test code = 0.5 % 706-2) GRAN MAT x10^3(ANC) 7.11 10*3/uL 1.88-7.09 H (test code = 4143281865) IMM GRAN x10^3 (test 0.04 10*3/uL 0-0.06 code = 1676973620) LYMPH x10^3 (test code 0.92 10*3/uL 1.32-3.29 L = 731-0) MONO x10^3 (test code 0.63 10*3/uL 0.33-0.92 = 742-7) EOS x10^3 (test code = 0.13 10*3/uL 0.03-0.39 711-2) BASO x10^3 (test code 0.04 10*3/uL 0.01-0.07 = 704-7) Lab Interpretation Abnormal (test code = 11328-2) [facility] HospitalXR ABDOMEN 2 [id number] 17:08:57Overall, bowel gas pattern is felt to [...] quadrant.[facility]. METABOLIC PANEL (16746)2020-09-01 07:34:00 Test Item Value Reference Range Interpretation Comments NA (test code = 137 mmol/L 135-145 6701137557) K (test code = 3.6 mmol/L 3.5-5 6623897444) CL (test code = 100 mmol/L 98-108 8255803138) CO2 TOTAL (test code = 26 mmol/L 23-31 4254102276) AGAP (test code = 2-16 2747774694) BUN (test code = 19 mg/dL 7-23 4966505727) GLUCOSE (test code = 171 mg/dL 70-110 H 7276737408) CREATININE (test code = 0.98 mg/dL 0.5-1.04 1695409333) TOTAL BILI (test code = 0.8 mg/dL 0.1-1.5 8543256992) CALCIUM (test code = 10.4 mg/dL 8.6-10.6 9092456441) T PROTEIN (test code = 8.9 g/dL 6.3-8.2 H 1811509534) ALBUMIN (test code = 4.9 g/dL 3.5-5 6542198576) ALK PHOS (test code = 109 U/L 34-122 1477506705) ALTv (test code = 46 U/L 5-35 H 1742-6) AST(SGOT) (test code = 26 U/L 13-40 2643555600) eGFR Calculation mL/min/1.73m2 (Non-) (test code = 1691584171) eGFR Calculation mL/min/1.73m2 () (test code = 9324365129) GUICHO (test code = GUICHO) Association of Glomerular Filtration Rate (GFR) and [...] tests). Lab Interpretation Abnormal (test code = 54054-0) [facility] HospitalLIPASE2020-10-18 07:34:00 Test Item Value Reference Range Interpretation Comments LIPASE (test code = 7750141759) 103 U/L 0-220 Lab Interpretation (test code = Normal 90125-5) [facility] WITH [id number] 07:19:00 Test Item Value Reference Range Interpretation [...] RDW-SD (test code = 40.4 fL 39-49.9 54086-7) RDW-CV (test code = 12.1 % 12-15.5 788-0) PLT (test code = See_Comment [Automated 777-3) message] The sy stem which generated this result transmitted reference range : 166 - 358 10*3/ ?L. The reference r madelin was not used to interpret this result as normal/abnormal . MPV (test code = 10.7 fL 9.5-12.9 27195-0) NRBC/100 WBC (test See_Comment [Automat ed code = 7231121557) message] The system which generated this result transmitted reference range : 0.0 - 10.0 /100 WBCs. The refer ence range was not u sed to interpret th is result as normal/abnormal . NRBC x10^3 (test code <0.01 See_Comment [Auto mated = 3676853615) message] The s ystem which generated this result transmitted reference range : 10*3/?L. The reference range was not used to interpret this result as normal/abnormal . GRAN MAT (NEUT) % 77.7 % (test code = 770-8) IMM GRAN % (test code 0.20 % = 4509263701) LYMPH % (test code = 18.3 % 736-9) MONO % (test code = 3.5 % 5905-5) EOS % (test code = 0.0 % 713-8) BASO % (test code = 0.3 % 706-2) GRAN MAT x10^3(ANC) 4.63 10*3/uL 1.88-7.09 (test code = 1409495215) IMM GRAN x10^3 (test <0.03 0-0.06 code = 6845220376) LYMPH x10^3 (test code 1.09 10*3/uL 1.32-3.29 L = 731-0) MONO x10^3 (test code 0.21 10*3/uL 0.33-0.92 L = 742-7) EOS x10^3 (test code = <0.03 0.03-0.39 L 711-2) BASO x10^3 (test code <0.03 0.01-0.07 = 704-7) Lab Interpretation Abnormal (test code = 51369-7) [facility] HospitalLIPASE2020-10-10 02:48:00 Test Item Value Reference Range Interpretation Comments LIPASE (test code = 1091306167) 171 U/L 0-220 Lab Interpretation (test code = Normal 52355-5) [facility] WITH [id number] 02:25:00 Test Item Value Reference Range Interpretation Comments WBC (test code = See_Comment [Automated message] 6690-2) The system [employer] generated this result transmitted ref erence range: 4.30 - 1 1.10 10*3/?L. The re ference range was not u sed to interpret this result as normal/abnor mal. RBC (test code = See_Comment [Automated message] 789-8) The system [employer] generated this result transmitted ref erence range: [...] RDW-SD (test code 42.3 fL 39-49.9 = 79835-1) RDW-CV (test code 12.1 % 12-15.5 = 788-0) PLT (test code = See_Comment [Automated message] 777-3) The system whic h generated this result transmitted ref erence range: 166 - 35 8 10*3/?L. The re ference range was not u sed to interpret this result as normal/abnor mal. MPV (test code = 11.0 fL 9.5-12.9 13724-7) NRBC/100 WBC (test See_Comment [Automat ed message] code = 8860883333) The syste m which generated this result transmitted ref erence range: 0.0 - 10 .0 /100 WBCs. The refer ence range was not u sed to interpret this result as normal/abnor mal. NRBC x10^3 (test <0.01 See_Comment [Automated message] code = 1307761461) The syste m which generated this result transmitted ref erence range: 10*3/?L. The reference range was not used to interpr et this result as normal/abnormal . GRAN MAT (NEUT) % 44.5 % (test code = 770-8) IMM GRAN % (test 0.20 % code = 5505213644) LYMPH % (test code 43.0 % = 736-9) MONO % (test code 9.5 % = 5905-5) EOS % (test code = 1.7 % 713-8) BASO % (test code 1.1 % = 706-2) GRAN MAT 2.35 10*3/uL 1.88-7.09 x10^3(ANC) (test code = 0558330900) IMM GRAN x10^3 <0.03 0-0.06 (test code = 4054852167) LYMPH x10^3 (test 2.27 10*3/uL 1.32-3.29 code = 731-0) MONO x10^3 (test 0.50 10*3/uL 0.33-0.92 code = 742-7) EOS x10^3 (test 0.09 10*3/uL 0.03-0.39 code = 711-2) BASO x10^3 (test 0.06 10*3/uL 0.01-0.07 code = 704-7) [facility] [id number] 03:50:29Addendum by Rhett Harden MD on 08/17/2020 11:01 PM* * * * * * * * ADDENDUM: * * * * * * * * The finding regarding left breast nodule was discussed with Dr MunozBaokevcq03/3/2020 10:53 PM Preliminary Report Dictated by Resident: [...] reviewed this study and agree with theabove report.[facility] NOW RAPID TESTING) 2020-08-18 01:55:00 Test Item Value Reference Range Interpretation Comments SARS-CoV-2 Rapid ID NOW Not Detected Not Detected (test code = 17033-0) GUICHO (test code = GUICHO) ID NOW COVID-19 Assay is an isothermal nucleic acid amplification test intended for the qualitative detection of nucleic acid from SARS-CoV-2 viral RNA in nasopharyngeal ([employer]) specimens. It is used under Emergency Use [...] indicated. Lab Interpretation Normal (test code = 39612-5) [facility]. METABOLIC PANEL ([id number])2020-08-18 01:47:00 Test Item Value Reference Range Interpretation Comments NA (test code = 135 mmol/L 135-145 6542080585) K (test code = 4.1 mmol/L 3.5-5 7699839318) CL (test code = 96 mmol/L 98-108 L 5354382455) CO2 TOTAL (test code = 30 mmol/L 23-31 3527808385) AGAP (test code = 2-16 3489403792) BUN (test code = 17 mg/dL 7-23 7474696038) GLUCOSE (test code = 149 mg/dL 70-110 H 2511533734) CREATININE (test code = 1.21 mg/dL 0.5-1.04 H 6810274818) TOTAL BILI (test code = 0.7 mg/dL 0.1-1.6 7020724877) CALCIUM (test code = 10.5 mg/dL 8.6-10.6 4158746010) T PROTEIN (test code = 8.6 g/dL 6.3-8.2 H 3669427767) ALBUMIN (test code = 4.4 g/dL 3.5-5 8469323183) ALK PHOS (test code = 170 U/L 34-122 H 4795895354) ALTv (test code = 145 U/L 5-35 H 1742-6) AST(SGOT) (test code = 70 U/L 13-40 H 9455999265) eGFR Calculation mL/min/1.73m2 (Non-) (test code = 8049584984) eGFR Calculation mL/min/1.73m2 () (test code = 9322308383) GUICHO (test code = GUICHO) Association of Glomerular Filtration Rate (GFR) and [...] tests). Lab Interpretation Abnormal (test code = 65303-5) [facility]2020[facility]:47:00 Test Item Value Reference Range Interpretation Comments LIPASE (test code = 7675802422) 172 U/L 0-220 Lab Interpretation (test code = Normal 06347-1) [facility] [id number] 01:34:00 Test Item Value Reference Range Interpretation [...] RDW-SD (test code = 41.1 fL 39-49.9 40593-1) RDW-CV (test code = 11.8 % 12-15.5 L 788-0) PLT (test code = See_Comment [Automated 777-3) message] The sy stem which generated this result transmitted reference range : 166 - 358 10*3/ ?L. The reference r madelin was not used to interpret this result as normal/abnormal . MPV (test code = 10.4 fL 9.5-12.9 55512-3) NRBC/100 WBC (test See_Comment [Automat ed code = 8130555855) message] The system which generated this result transmitted reference range : 0.0 - 10.0 /100 WBCs. The refer ence range was not u sed to interpret th is result as normal/abnormal . NRBC x10^3 (test code <0.01 See_Comment [Auto mated = 2092228411) message] The s ystem which generated this result transmitted reference range : 10*3/?L. The reference range was not used to interpret this result as normal/abnormal . GRAN MAT (NEUT) % 50.9 % (test code = 770-8) IMM GRAN % (test code 0.40 % = 0902367530) LYMPH % (test code = 35.9 % 736-9) MONO % (test code = 9.9 % 5905-5) EOS % (test code = 2.2 % 713-8) BASO % (test code = 0.7 % 706-2) GRAN MAT x10^3(ANC) 2.31 10*3/uL 1.88-7.09 (test code = 5430853264) IMM GRAN x10^3 (test <0.03 0-0.06 code = 1734545344) LYMPH x10^3 (test code 1.63 10*3/uL 1.32-3.29 = 731-0) MONO x10^3 (test code 0.45 10*3/uL 0.33-0.92 = 742-7) EOS x10^3 (test code = 0.10 10*3/uL 0.03-0.39 711-2) BASO x10^3 (test code 0.03 10*3/uL 0.01-0.07 = 704-7) Lab Interpretation Abnormal (test code = 25041-3) [facility] WITH [id number] 10:12:00 Test Item Value Reference Range Interpretation [...] RDW-SD (test code = 45.2 fL 39-49.9 44442-1) RDW-CV (test code = 12.9 % 12-15.5 788-0) PLT (test code = See_Comment H [Automated 777-3) message] The sy stem which generated this result transmitted reference range : 166 - 358 10*3/ ?L. The reference r madelin was not used to interpret this result as normal/abnormal . MPV (test code = 9.8 fL 9.5-12.9 41083-7) NRBC/100 WBC (test See_Comment [Automat ed code = 0411364134) message] The system which generated this result transmitted reference range : 0.0 - 10.0 /100 WBCs. The refer ence range was not u sed to interpret th is result as normal/abnormal . NRBC x10^3 (test code <0.01 See_Comment [Auto mated = 1533925630) message] The s ystem which generated this result transmitted reference range : 10*3/?L. The reference range was not used to interpret this result as normal/abnormal . GRAN MAT (NEUT) % 64.8 % (test code = 770-8) IMM GRAN % (test code 2.10 % = 8194633960) LYMPH % (test code = 21.9 % 736-9) MONO % (test code = 9.0 % 5905-5) EOS % (test code = 1.9 % 713-8) BASO % (test code = 0.3 % 706-2) GRAN MAT x10^3(ANC) 8.61 10*3/uL 1.88-7.09 H (test code = 0028061181) IMM GRAN x10^3 (test 0.28 10*3/uL 0-0.06 H code = 2251117908) LYMPH x10^3 (test code 2.91 10*3/uL 1.32-3.29 = 731-0) MONO x10^3 (test code 1.20 10*3/uL 0.33-0.92 H = 742-7) EOS x10^3 (test code = 0.25 10*3/uL 0.03-0.39 711-2) BASO x10^3 (test code 0.04 10*3/uL 0.01-0.07 = 704-7) REACT LYMPHS (test Rare code = 6523803375) Lab Interpretation Abnormal (test code = 86356-0) [facility] METABOLIC PANEL (NA, K, CL, CO2, GLUCOSE, BUN, CREATININE, CA)2020-08-01 09:46:00 Test Item Value Reference Range Interpretation Comments NA (test code = 137 mmol/L 135-145 4599788458) K (test code = 4.0 mmol/L 3.5-5 2833341778) CL (test code = 100 mmol/L 98-108 5137102170) CO2 TOTAL (test code = 30 mmol/L 23-31 8716596421) AGAP (test code = 2-16 0959819632) BUN (test code = 5 mg/dL 7-23 L 6021662736) GLUCOSE (test code = 139 mg/dL 70-110 H 0454300407) CREATININE (test code = 0.73 mg/dL 0.5-1.04 2768583177) CALCIUM (test code = 9.3 mg/dL 8.6-10.6 9435322190) eGFR Calculation mL/min/1.73m2 (Non-) (test code = 3211568148) eGFR Calculation mL/min/1.73m2 () (test code = 3603835711) GUICHO (test code = GUICHO) Association of Glomerular Filtration Rate (GFR) and [...] tests). Lab Interpretation Abnormal (test code = 37842-2) [facility] 09:[facility]00 Test Item Value Reference Range Interpretation Comments MAGNESIUM (test code = 5412024726) 1.9 mg/dL 1.7-2.4 Lab Interpretation (test code = Normal 29115-1) [facility] 09:46:00 Test Item Value Reference Range Interpretation Comments PHOSPHORUS (test code = 3178688807) 3.0 mg/dL 2.5-5 Lab Interpretation (test code = Normal 81704-7) [facility] [id number] 10:55:00 Test Item Value Reference Range Interpretation Comments WBC (test code = See_Comment [Automated 0090-2) message] The sy stem which generated this result transmitted reference range : 4.30 - 11.10 10*3/?L. The reference range was not used to interpret this result as normal/abnormal . RBC (test code = See_Comment L [Automated 889-8) message] The sy stem which generated this [...] RDW-SD (test code = 45.4 fL 39-49.9 89626-0) RDW-CV (test code = 12.8 % 12-15.5 788-0) PLT (test code = See_Comment H [Automated 777-3) message] The sy stem which generated this result transmitted reference range : 166 - 358 10*3/ ?L. The reference r madelin was not used to interpret this result as normal/abnormal . MPV (test code = 9.7 fL 9.5-12.9 91522-9) NRBC/100 WBC (test See_Comment [Automat ed code = 2499178906) message] The system which generated this result transmitted reference range : 0.0 - 10.0 /100 WBCs. The refer ence range was not u sed to interpret th is result as normal/abnormal . NRBC x10^3 (test code <0.01 See_Comment [Auto mated = 6905098493) message] The s ystem which generated this result transmitted reference range : 10*3/?L. The reference range was not used to interpret this result as normal/abnormal . GRAN MAT (NEUT) % 42.8 % (test code = 770-8) IMM GRAN % (test code 5.50 % = 5658752593) LYMPH % (test code = 36.7 % 736-9) MONO % (test code = 11.8 % 5905-5) EOS % (test code = 2.8 % 713-8) BASO % (test code = 0.4 % 706-2) GRAN MAT x10^3(ANC) 4.35 10*3/uL 1.88-7.09 (test code = 7014588205) IMM GRAN x10^3 (test 0.56 10*3/uL 0-0.06 H code = 8081503099) LYMPH x10^3 (test code 3.74 10*3/uL 1.32-3.29 H = 731-0) MONO x10^3 (test code 1.20 10*3/uL 0.33-0.92 H = 742-7) EOS x10^3 (test code = 0.29 10*3/uL 0.03-0.39 711-2) BASO x10^3 (test code 0.04 10*3/uL 0.01-0.07 = 704-7) REACT LYMPHS (test Rare code = 2137815593) Lab Interpretation Abnormal (test code = 06796-6) [facility] METABOLIC PANEL (NA, K, CL, CO2, GLUCOSE, BUN, CREATININE, CA)2020-07-31 10:50:00 Test Item Value Reference Range Interpretation Comments NA (test code = 135 mmol/L 135-145 4268200870) K (test code = 3.8 mmol/L 3.5-5 0189868439) CL (test code = 101 mmol/L 98-108 7802965449) CO2 TOTAL (test code = 27 mmol/L 23-31 3669752748) AGAP (test code = 2-16 4033379631) BUN (test code = 2 mg/dL 7-23 L 6439574434) GLUCOSE (test code = 132 mg/dL 70-110 H 3874030280) CREATININE (test code = 0.72 mg/dL 0.5-1.04 2040077192) CALCIUM (test code = 8.4 mg/dL 8.6-10.6 L 5075058216) eGFR Calculation mL/min/1.73m2 (Non-) (test code = 7277955288) eGFR Calculation mL/min/1.73m2 () (test code = 1350704952) GUICHO (test code = GUICHO) Association of Glomerular Filtration Rate (GFR) and [...] tests). Lab Interpretation Abnormal (test code = 58670-2) [facility] 10:50:00 Test Item Value Reference Range Interpretation Comments MAGNESIUM (test code = 9615609655) 1.2 mg/dL 1.7-2.4 L Lab Interpretation (test code = Abnormal 15157-8) [facility] 10:50:00 Test Item Value Reference Range Interpretation Comments PHOSPHORUS (test code = 3596535945) 3.8 mg/dL 2.5-5 Lab Interpretation (test code = Normal 52717-6) [facility] [id number] 15:48:00 Test Item Value Reference Range Interpretation Comments Case Report (test code Surgical Pathology ? ? = [id number]) ?Case: [id number] ? Authorizing Provider: ?Darren Chun MD ?Collected: ? 07/25/20201707 ?Ordering Location: ? ? [facility] OR ? Received: ?07/26/2020 0914 ? Department ? Pathologist: ? Opal, Deniz, MD PHD ?Specimen: ? ?ABDOMEN, ILEOCECECTOMY ? Final Diagnosis (test n6lsjPJhDJWgo7iyBDDtbHU code = 7597597723) uZzEwMzNcZnRuYmpcdWMxIH azdcRrENdet8KaS8UlCvXcN FxhbnNpXGRlZmxhbmcxMDMz BII0uvZqORZbQUshFTVfCFj eDk3ooNXpnQcjHfSiOWImc8 hsjjLWuogdbZh2g0nkHMFxA kK3wREgOKnpL7gvdkAwfASz NSJoHMm5fG55RWSbdU1yiZB lZQquydLqIiP5LKzxWCTyZd Y0RUNuwWYuKCArC1llFFItG YqrRZIySKkiwDGbMFF5bYzo v5C8fDXmcFTihXyfEwFtCzZ bWAWSy5XzBYj5cGmzW9XaOO UmIdO3wUSyXXGtGQiyVYVjR VWxjsB8jG02MCzcegM2aHHk b8Sjj98ex927gO1stSHjAWN 3JVVjVLBvyFXfFPToPQS5BG ZqpYIdX0qgWNhyJI9edkryX FM3FJaxSCRezLfqMYffCYUu ThJpoKEtFNUdxYjrLKrde23 1QYK9PiWkPN1fO0Tog8A9jF 9maXRcZGVmdGFiNzIwXGZvc d7cuUPcJQtdp9WvQAV4inU5 bACdwXJvMQPeOK70Tdssa9W vMpelAZU7YHDykzQvt5Muo5 lfNbCjprSrJ4yzZ6CeYYUrC PMpXTOlVvWztiVpi2Lcm2Ge dAXhhNb7k7anBDUfATFutDx dd6foIPB8OJOrD6V1tBXnf5 wcMKzkYDVnoQJ2moAaYWSup YIdD6BbuH5gWTwjRQ6ryoi0 r8ykEpVfIP7jhfnzj6utPWn qJDIwZAG7VoYfCRNmp8Dzyh nlZtByb4WzqYBfFIjvV20ob 920FBFgjqBzU1ewxGUhbdqm xSFyuihyMNefsyI1RCVkNRO sYWluXGYxXGZzMjBcbGFuZz EwMzNcaGljaFxmMVxkYmNoX GScHKcvD1lyYqIgWmCiUHpz XYRfQY8bK96CMNbyMC4AJLA VKQ9ZDCSUMDNOBOKEFZXFLK ZQL4JNZBXDMRBLH6FENHREI 75DNkeyBJDiRCKkMN3rQ3JN TUVOVEFMIFNNQUxMIElOVEV TVElORSAgSVNDSEVNSUMgTk PVCk1ZFLIgB5lLNELFCeKJL 78NJvISLGnSOd8LAjCQIV0R LCBccGFyICAgICAgICBTRUN UMlXWIfzsBI9nUwpCVv1ZYE KtBHYMDWELP66bDI0OQWRUA IpYHEDZQ5ZFMD0GU0DYPXHM PA4CHYfqDXJaQCYyTI6nO2Y VPVIEFSIIKs4MWtLJL96IRK ZOYW4BDJrOSGovC9UNNHWYG 1NBTCBBTkQgVFJBTlNNVVJB YBTGUY7LZlEZCEbJWPdmLBZ nKQBrYB4sRf8dCGWEOZLKN4 PqK5YoPDDITGBWQCNTI1yPW 1MgRElTRUFTRVxwYXIgICAg ZK5rT7BMQ0bIDKxiPYLLY7k OUyBBUkUgVklBQkxFIFxwYX PyHOHoAF4rRd3xPRKJORlKP I2JAGGDKKSFXUvHJZAOGLCa ciAgICAgLSBBUFBFTkRJWCB NVPFAVXRWPe9GVKCLRgJmdO FyXHBhclxwbGFpblxmMVxmc uJaULcmrjegJLNgLBqnP6pg BiPyKKBqcPerLRzlv4MfFAW yDHKjKredwdOgOXnbHL71II 1jWAZ9AONYNJNwZD0oPK7eW DIwIFxwbGFpblxmMVxmczIw FVwhkoooSEFxNWihD5cdRyY yIGVooWlkLLlim0AwCQQrMB ZzMjBccGFyfXtccnRmMVxzc 2KjK1VwSeWpPKcuugVgOHJl GwplrgcjUKRoCNH6roZiSES lJMqzRZOyATgiUh0djAFkwH edDkJbBXUsw8eypdDHKRyqJ sPsU590XTZePEupf2zzg0Ul RSSrmDFam1L0GLEOfnucfGm 2k0inBnEyEoJ0kWNmMFuxO9 pcogPysTCkF8CzsNTcyFh8n HjaO65fc6G3NtizD9rrDQNr JFCgF3GhSJ4pOMGhIst6NQE 0DCQ5PAUiJEAyR3MuDK8lNO MneFApQFa6h2uehWvrZESdU EA8b4riACvzbwX3RO0agk6m aCn5p4nrzlWvYDXyCLTlyGW ZNOYvE5KpbWdaYm0wnJu4fU nuVegrAVD6Ogn1JD5aqx40j vj7vWukVVJxtwzdWwD8VYhn OVKhooasAHo9MBkuAJQcmWJ 0QNTflEIdU9HuSFMyDF7gfi d3EUH2XBnrDHMiObZ0TWAuq ZZwFUOamKdgHWuax930OIT7 DdAtNY7yO5Qjc6V4kA3zcUE dWMTcwTBgSzDqCEBgtp1mnK RfUOgkw1OhLRS1btK0bZUqr GIeLWOoYZ50Mnrqq2AzRlme TSB1MYCteeFwb2Fzm4zoBtL uljJxK6pjO4HjVVLnTOQhKK BiYpLyqdSlk1Kna2HlcGKxr Sq1n4pmMRJgFJOemEurr7dg WGQ0SJEkD0G2oXXmx1uhABt pBMNhqEX4emV2KXZzvJTfZ4 NxbN5oESJaYG9fotj3p1wxG YG2UFlmWLHkEcK4xsZ7OCXk iLFaVNSxyTrmNCpwq525APW 6WsKmHNOxq3DmD6YpeZqtD2 0njGmbS27nOIQzqKzmzF7ic LimaW9kCkPaAuGmRHhxiBnh bGFpblxmMVxmczIwXGxhbmc vWVNrMAsiW8sxGgBsDYZcoC tdTHwbg2TyFYUkAIZzMnreh zIwXHBhciBJIGhhdmUgcGVy o11bLTfaaVXhWLOcOYtuEIB yqTlky2WkG5kdUV3uQ9YwtE TushPhbkVrEVgfSWGdk3v3h BPboIlwl6PxtAYlKC48zrTl LBLvSZX7HYWyt2kcAB03bqx rZwYotY40tfTsadMmZJRxz1 lfG3pagTMwl6Sfr4CjhuLdF Lbdq2FhGA0gbYFxsxxktPP2 AJReuXWkekUbgaC9qBzwUHB qdG3rsO6vbHxxmO1mBmKmPv AxYJqxNO1zIXMyZ0bpkCZsA ZUoQUGmN2lrOcLhnE3vtHtp HsvyfvJ6SWIlbe82 Clinical Information Crohn's 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 code = colon with complication 1201071934) [K50.119]SBO (small bowel obstruction) [K56.609] Gross Description i1jirPPfAVHgmIEeCwFdFRU (test code = tAKRer0hiXLJerXCxYaFiTg 8587836911) NcZnRuYmpcdWMxXGRlZmYwe 4frk072qSSwx6nsIOQiTeR7 pXDrBXIjyPQaD939LZEzXJk ir3rem9LhTGEohUPxg7S5XH IJbrzglVd2wPszY97ur6S5P gudJ8drGUWuZAWeP3HtET6g QPBsFui7CLM5TZP5IFRwFWT bZ0HcPN6zQLUakXHmRDo4o9 dtmOllTSDrIYS3s0oyKLrpy rNiHI5qsk0pyWi7t8ougjTk NMIrWJFviZGMFLYoB8FhjVu uRk0mwZu3eKlhZvhjYCB6Vv w1QM2zgj20mhg6qAnnGZEhh gurNzF9URhfHOCeufesXSq9 ZZbgYZGezCJgEORshJQyB1I fIGruLM1xnxj4EfUsLA2jim apKKonPGEnLCD9BsLlVQGuy 4VnhkhkMqZgev8lkt48ZMA0 n0NsuAwlWBU2KJU8UcNlDt1 stHZpBSHcMK4tIeVghAYtTE Ygey01nYriBKcdcuVxyO0kN dVwGAPjvCQkBCFyKO8ffYYu XYZreO0fpvdfGBVgUzOwcwt vYEFxhIvewvRuKv8ycRtqBA M2HUvnU1yhfB6wGmC5BBtjB 6uotH2cOVi8NZrrtXD9BBXt mI1gIG4wgnyao4xpDIQ1DZf dHTRmjwG1urQoZNGfkLQfJ7 AkjH06LmUpnZIvY3IjxS9uT FxcFMTqxsp4UhLnWc3ybDWx nVY0SJviPvgyIFojKDAiayZ vbnRccGduZGVjXHBsYWluXH BsYWluXGYwXGZzMjRccWxcc DwvtB6dWdUaQqEwJLzxEP9o BEZlO2oqyVMoRUDrDXPaM1g kTiMyzL3fkIwgXIjfpdOcTD NwZWNpbWVuIEEgaXMgcmVjZ Cg5ZPRccL7tVq2kaCNmlI4n yFVhEJloXLC1nWYoHHLnSBV tYNQmNA50M4EvtpWsYTatFS odgkJvWfAwLJLjJLHhy43et tbuqBpwr2OmL8IfrY6phULu DX7cEAGglfHks0YtEO9xUMP ka78kgAivCi41TBade6MtiW VudCAoNjYuOCBjbSBpbiBsZ H1kyXnrhTIkyVMoYSNhpjJf KZ2riV5nHSDbe37fKb11KS6 sZj9bGDCyJNF6lODnDNW3oP DlzWKoFJJljMIzZGi4LWq5I wqxW64ouR8bhOKhX2WhSJoa JQ75FJOtSOcoLSXxFB1lhUY yKSBhbmQgcHJveGltYWwgY2 VgpW6fSBKeRTEeUXCtq0Ymb VQvqRQwFB7onN6wbSJzuXZt DDFdMOLkILA8kcDkgdK6IBP iNYNjRKPpQA6gdsAhREfeRx KmmoIgY7Vtw8ZidUHgkTqcq XSmNKPjrw17O7obeCZcrNMs gzCcSW5ngLfca0f8kFM5mJF knINgYIKbUMYnjC0zNILad7 otvIDcTBYgGGZrdXD5GUuiy SFwT1awcq1rQKwkLMZnESTl fTHxFQbnWR0fXT3nEUCwpvN jEN3db3RbgGKcjRLccVd5IN ZaWICkhbInjKPtIB0rexHiT WnyGyWtoV9xepEpAYDjbkTz bnRzIHdpdGggYSBkYXJrLWJ jc4otRSCgRND5ZS3kVETebO Wpy4PxARS6MQSwH1Yac8Zgi SC6tDlzl84pv6JdPU7mAHZq ZD6dTXzgevIzNEMzIB08cIO qkUdyMNBcw8GclSVgyZCfYX MfiMbqw9inVB2vHPZhUEZnF DAuMSBjbSBpbiBncmVhdGVz eZTjjE0dxeKcm78cFKloK8K 8XEQyARPtqAiaBJYhn8KvkM WalQC4nX4yJs1nqKNgTe3vQ ZBam48gCKQeVBCepp5yl3j1 FLvgTC19pCBsPIXxOHzxLWG ccGFyIFRoZSBhcHBlbmRpeC GjIBGqQI1dIMU7DDRtEMRkp HZatW95UBIpp8qlVIEhJ7sf FMTjNIPgHLOqZN8irCchMAD xPCE0XYRcUfOmoSmbWR3bSW CdxZGoHBMqnkiye72df1JbE UTvrp1lTKD3mVWtSWNbPTCp EB4lQX45zWUjEx8nAWcyD67 qF5OxqNeret5wEZjpUODgjQ KlQIf8IVjuZWAioaaxoZt0N IFnF9Bgr07lDOM1lcTgIJKl ZJsmdXBqOWyvcQ8iHW2wbNK eL7J7FUH4orQnM9RvBYwipV iwLHZntB5ercCngVYyhP7ah CBkaWFtZXRlciAwLjIgLSAw PiYrL52xXRIgtFdcZGV1pNA mERMex8lvFAArL1MaRZ3loI VyaWFsLiBXYWxsIHRoaWNrb bGszaYnHR1kKUDoNyExrKOd VvCfXGJmZjRoT98rEMRtlTK et0CltDO2rPMsZXFpH5Uyb5 0kQVMnBFHsjMBcmDB0FQLsc K9fPJKjMPQxSyafIKAomDJy ECHdS4Dly91dG70iPCueyIY mQFUzSPHgEfDdag65vH1afD VknQK9rIJnQSCunJ1yBIIvI CTeU8TunLMuHDHsBkEbuDZ1 DRnqI4LsUPgyiRJdM6cmAHG nWMZcMQYmilErjOz5VMyeIM XpYXS9ZJknMV0vPVXoiMQ3X Io7EKgdrmKbliWnJD22TYXn bzKvyWHfNWB9PmUsZBKlBHS nlgRuzCq8VCMsIYP1dA2fee KjBzY8MQpxQTSjOIajH9j8B HJab7Lnz1nxXGSot2s8lNCt qQFqWJY0NWJ7NzCxRHNuRMF xzbRqpPb3QMIgLCA7uM3oqv ZtHpO7VQwyHVDreYQukJL6Y BSwb0DdvDAbuEjceAt4NFBu g28nkSMrpIpzQCwmpZ6tATj olORiYLVejyJXSQD2SXYxM7 Bvp21gPB5yXYWlvPHmIWd9C SDdPUmzQ6w7VLLaEFMmHX6o jNLqNVgdb8EgUmazMSTlcE7 bVQSwQfp0UDvzWUVaiVGyd5 IrdRC3rIBlANVgk9ZjJWImS 9Chd63sINCkWXMvifFlodAg OpljENV3FLOstDudEZDgrba hSGHuAp2uWG1jMFFnxRMxBP NWBWW9sGErrwEjNVRbdpWIT LRvBE72syotpcHRDRFgBNB9 jZ8tm7xqu8EyOpSDs2Oxo2B hbnQpXHBhcn0= Embedded Images (test code = 1498586579) [facility] METABOLIC PANEL (NA, K, CL, CO2, GLUCOSE, BUN, CREATININE, CA)2020-07-30 11:29:00 Test Item Value Reference Range Interpretation Comments NA (test code = 136 mmol/L 135-145 5797060867) K (test code = 3.8 mmol/L 3.5-5 Slight 4973940349) hemolysis CL (test code = 102 mmol/L 98-108 2252529114) CO2 TOTAL (test code 25 mmol/L 23-31 = 6053245572) AGAP (test code = 2-16 2118353180) BUN (test code = 2 mg/dL 7-23 L Slight 0710082413) hemolysis GLUCOSE (test code = 182 mg/dL 70-110 H 4560691783) CREATININE (test code 0.68 mg/dL 0.5-1.04 = 7429063487) CALCIUM (test code = 9.0 mg/dL 8.6-10.6 8874159593) eGFR Calculation mL/min/1.73m2 (Non-) (test code = 3031857083) eGFR Calculation mL/min/1.73m2 () (test code = 5253003789) GUICHO (test code = GUICHO) Association of Glomerular Filtration Rate (GFR) and [...] tests). Lab Interpretation Abnormal (test code = 00470-5) [facility] 11:29:00 Test Item Value Reference Range Interpretation Comments MAGNESIUM (test code = 4502426284) 1.4 mg/dL 1.7-2.4 L Lab Interpretation (test code = Abnormal 10838-7) [facility] 11:29:00 Test Item Value Reference Range Interpretation Comments PHOSPHORUS (test code = 1706735359) 3.6 mg/dL 2.5-5 Lab Interpretation (test code = Normal 55440-7) [facility] [id number] 14:01:19EXAM: XR KUB 07/29/2020 4:42 AM. INDICATION: [...] reviewed this study and agree with theabove report.[facility],Radiant Results Inft User - 07/29/2020 9:02 [...] reviewed this study and agree with theabove report.[facility] (NA, K, CL, CO2, GLUCOSE, BUN, CREATININE, CA)2020-07-29 12:26:00 Test Item Value Reference Range Interpretation Comments NA (test code = 137 mmol/L 135-145 1925270782) K (test code = 3.4 mmol/L 3.5-5 L 9587309586) CL (test code = 102 mmol/L 98-108 9219519712) CO2 TOTAL (test code = 31 mmol/L 23-31 3895957420) AGAP (test code = 2-16 0279403968) BUN (test code = 3 mg/dL 7-23 L 2301875490) GLUCOSE (test code = 118 mg/dL 70-110 H 7985557560) CREATININE (test code = 0.81 mg/dL 0.5-1.04 2719474871) CALCIUM (test code = 9.4 mg/dL 8.6-10.6 4266785622) eGFR Calculation mL/min/1.73m2 (Non-) (test code = 0105834588) eGFR Calculation mL/min/1.73m2 () (test code = 9510414079) GUICHO (test code = GUICHO) Association of Glomerular Filtration Rate (GFR) and [...] tests). Lab Interpretation Abnormal (test code = 45489-4) [facility] 11:05:00 Test Item Value Reference Range Interpretation Comments Fibrinogen (test code = 1089 mg/dL 167-453 H 6056196739) Lab Interpretation (test code = Abnormal 72928-8) [facility] 10:58:00 Test Item Value Reference Range Interpretation Comments APTT Patient (test code = See_Comment [ Automated message] 3173-2) The system [employer] generated this result transmitted ref erence range: 26 - 36 Seconds. The re ference range was not u sed to interpret this result as normal/abnor mal. Lab Interpretation (test Normal code = 19952-1) [facility] HospitalPROT[facility] / [id number] 10:58:00 Test Item Value Reference Range Interpretation Comments PROTIME PATIENT (test See_Comment [Auto mated message] code = 5964-2) The system [employer] generated this result transmitted ref erence range: 10.1 - 1 2.6 Seconds. The re ference range was not u sed to interpret this result as normal/abnor mal. INR (test code = 6301-6) Nor mal INR <1.1; Warfarin Therap eutic range 2.0 to 3. 0 or 2.5 to 3.5, dep ending upon the indica tions. Lab Interpretation (test Normal code = 87317-3) [facility] HospitalCBC WITHOUT [id number] 10:54:00 Test Item Value Reference Range Interpretation Comments WBC (test code = 6690-2) See_Comment [A utomated message] The system [employer] generated this result transmit carl reference range : 4.30 - 11.10 10*3/?L. The reference range was not used to interpret this result as normal/abnormal . RBC (test code = 789-8) See_Comment L [Au tomated message] The system [employer] generated this result transmit carl reference range [...] 777-3) See_Comment [Au tomated message] The system [employer] generated this result transmit carl reference range : 166 - 358 10*3/?L. The reference range was not used to interpret this result as normal/abnormal . MPV (test code = 10.0 fL 9.5-12.9 27112-0) RDW-CV (test code = 12.0 % 12-15.5 788-0) RDW-SD (test code = 43.2 fL 39-49.9 58819-0) NRBC x10^3 (test code = <0.01 See_Comment [Au tomated message] 0368462613) The system [employer] h generated this result transmit carl reference range : 10*3/?L. The reference range was not used to interpret this result as normal/abnormal . NRBC/100 WBC (test code See_Comment [Au tomated message] = 3340523578) The system [employer] generated this result transmit carl reference range : 0.0 - 10.0 /100 WBC s. The reference r madelin was not used to interpret this result as normal/abnormal . IPF % (test code = 8511201587) Lab Interpretation (test Abnormal code = 62839-6) [facility] [id number] 22:01:00 Test Item Value Reference Range Interpretation Comments Blood Culture-Aerobic No organisms No growth Previo us (test code = 29346-0) isolated prelim inary verified result was Culture [...] Culture-Anaerobic isolated preliminar y (test code = 47260-9) verifi ed result was Culture In Progress [...] CDT Lab Interpretation Normal (test code = 26526-3) [facility] [id number] 22:01:00 Test Item Value Reference Range Interpretation Comments Blood Culture-Aerobic No organisms No growth Previo us (test code = 37656-7) isolated prelim inary verified result was Culture [...] Culture-Anaerobic isolated preliminar y (test code = 93088-8) verifi ed result was Culture In Progress [...] CDT Lab Interpretation Normal (test code = 81829-3) [facility] (NA, K, CL, CO2, GLUCOSE, BUN, CREATININE, CA)2020-07-28 12:34:00 Test Item Value Reference Range Interpretation Comments NA (test code = 135 mmol/L 135-145 6977021874) K (test code = 3.6 mmol/L 3.5-5 3135758619) CL (test code = 105 mmol/L 98-108 2807018771) CO2 TOTAL (test code = 24 mmol/L 23-31 8111668933) AGAP (test code = 2-16 6266713742) BUN (test code = 3 mg/dL 7-23 L 4824378418) GLUCOSE (test code = 132 mg/dL 70-110 H 6317723270) CREATININE (test code = 0.68 mg/dL 0.5-1.04 9720897778) CALCIUM (test code = 8.6 mg/dL 8.6-10.6 8922986924) eGFR Calculation mL/min/1.73m2 (Non-) (test code = 9590813236) eGFR Calculation mL/min/1.73m2 () (test code = 0129558933) GUICHO (test code = GUICHO) Association of Glomerular Filtration Rate (GFR) and [...] tests). Lab Interpretation Abnormal (test code = 16255-0) [facility] WITHOUT [id number] 10:46:00 Test Item Value Reference Range Interpretation Comments WBC (test code = 6690-2) See_Comment [A utomated message] The system [employer] generated this result transmit carl reference range : 4.30 - 11.10 10*3/?L. The reference range was not used to interpret this result as normal/abnormal . RBC (test code = 789-8) See_Comment L [Au tomated message] The system [employer] generated this result transmit carl reference range [...] 777-3) See_Comment [Au tomated message] The system [employer] generated this result transmit carl reference range : 166 - 358 10*3/?L. The reference range was not used to interpret this result as normal/abnormal . MPV (test code = 10.0 fL 9.5-12.9 91702-7) RDW-CV (test code = 12.0 % 12-15.5 788-0) RDW-SD (test code = 42.5 fL 39-49.9 83429-4) NRBC x10^3 (test code = <0.01 See_Comment [Au tomated message] 8427478340) The system [employer] generated this result transmit carl reference range : 10*3/?L. The reference range was not used to interpret this result as normal/abnormal . NRBC/100 WBC (test code See_Comment [Au tomated message] = 9718251740) The system [facility] generated this result transmit carl reference range : 0.0 - 10.0 /100 WBC s. The reference r madelin was not used to interpret this result as normal/abnormal . IPF % (test code = 7530832762) Lab Interpretation (test Abnormal code = 11631-3) [facility] METABOLIC PANEL (NA, K, CL, CO2, GLUCOSE, BUN, CREATININE, CA)2020-07-27 11:40:00 Test Item Value Reference Range Interpretation Comments NA (test code = 134 mmol/L 135-145 L 5480957279) K (test code = 3.7 mmol/L 3.5-5 1125404431) CL (test code = 104 mmol/L 98-108 1791635725) CO2 TOTAL (test code = 29 mmol/L 23-31 9648794882) AGAP (test code = 2-16 L 9886026821) BUN (test code = 7 mg/dL 7-23 0472465521) GLUCOSE (test code = 169 mg/dL 70-110 H 7193458745) CREATININE (test code = 0.63 mg/dL 0.5-1.04 3952848629) CALCIUM (test code = 8.3 mg/dL 8.6-10.6 L 8444849456) eGFR Calculation mL/min/1.73m2 (Non-) (test code = 9176292048) eGFR Calculation mL/min/1.73m2 () (test code = 2377529734) GUICHO (test code = GUICHO) Association of Glomerular Filtration Rate (GFR) and [...] tests). Lab Interpretation Abnormal (test code = 78018-8) [facility] WITHOUT [id number] 11:18:00 Test Item Value Reference Range Interpretation Comments WBC (test code = 6690-2) See_Comment H [A utomated message] The system [employer] generated this result transmit carl reference range : 4.30 - 11.10 10*3/?L. The reference range was not used to interpret this result as normal/abnormal . RBC (test code = 789-8) See_Comment L [Au tomated message] The system [facility] generated this result transmit carl reference [...] [Au tomated message] The system [facility] generated this result transmit carl reference range : 166 - 358 10*3/?L. The reference range was not used to interpret this result as normal/abnormal . MPV (test code = 10.8 fL 9.5-12.9 89117-1) RDW-CV (test code = 11.9 % 12-15.5 L 788-0) RDW-SD (test code = 43.5 fL 39-49.9 91433-1) NRBC x10^3 (test code = <0.01 See_Comment [Au tomated message] 6569002479) The system [facility] generated this result transmit carl reference range : 10*3/?L. The reference range was not used to interpret this result as normal/abnormal . NRBC/100 WBC (test code See_Comment [Au tomated message] = 8643738397) The system [facility] generated this result transmit carl reference range : 0.0 - 10.0 /100 WBC s. The reference r madelin was not used to interpret this result as normal/abnormal . IPF % (test code = 7793484519) Lab Interpretation (test Abnormal code = 99757-1) [facility] METABOLIC PANEL (NA, K, CL, CO2, GLUCOSE, BUN, CREATININE, CA)2020-07-26 09:39:00 Test Item Value Reference Range Interpretation Comments NA (test code = 136 mmol/L 135-145 7900301188) K (test code = 3.9 mmol/L 3.5-5 8877330046) CL (test code = 104 mmol/L 98-108 8914103971) CO2 TOTAL (test code = 28 mmol/L 23-31 8357784775) AGAP (test code = 2-16 9910030127) BUN (test code = 11 mg/dL 7-23 8321137008) GLUCOSE (test code = 136 mg/dL 70-110 H 4339407285) CREATININE (test code = 0.84 mg/dL 0.5-1.04 8951796206) CALCIUM (test code = 8.2 mg/dL 8.6-10.6 L 2641120260) eGFR Calculation mL/min/1.73m2 (Non-) (test code = 8192655010) eGFR Calculation mL/min/1.73m2 () (test code = 1125553974) GUICHO (test code = GUICHO) Association of Glomerular Filtration Rate (GFR) and [...] tests). Lab Interpretation Abnormal (test code = 95005-5) [facility] WITHOUT [id number] 08:44:00 Test Item Value Reference Range Interpretation Comments WBC (test code = 6690-2) See_Comment [A utomated message] The system [employer] generated this result transmit carl reference range : 4.30 - 11.10 10*3/?L. The reference range was not used to interpret this result as normal/abnormal . RBC (test code = 789-8) See_Comment L [Au tomated message] The system [employer] generated this result transmit carl reference range [...] See_Comment L [Au tomated message] The system [employer] generated this result transmit carl reference range : 166 - 358 10*3/?L. The reference range was not used to interpret this result as normal/abnormal . MPV (test code = 11.0 fL 9.5-12.9 44487-5) RDW-CV (test code = 11.8 % 12-15.5 L 788-0) RDW-SD (test code = 42.4 fL 39-49.9 03482-0) NRBC x10^3 (test code = <0.01 See_Comment [Au tomated message] 1823232132) The system [employer] generated this result transmit carl reference range : 10*3/?L. The reference range was not used to interpret this result as normal/abnormal . NRBC/100 WBC (test code See_Comment [Au tomated message] = 9203115001) The system [facility] generated this result transmit carl reference range : 0.0 - 10.0 /100 WBC s. The reference r madelin was not used to interpret this result as normal/abnormal . IPF % (test code = 7882736312) Lab Interpretation (test Abnormal code = 32443-9) [facility] METABOLIC PANEL (NA, K, CL, CO2, GLUCOSE, BUN, CREATININE, CA)2020-07-26 00:48:00 Test Item Value Reference Range Interpretation Comments NA (test code = 137 mmol/L 135-145 8215389889) K (test code = 4.5 mmol/L 3.5-5 9939497980) CL (test code = 102 mmol/L 98-108 3080988233) CO2 TOTAL (test code = 28 mmol/L 23-31 6596399517) AGAP (test code = 2-16 1444080100) BUN (test code = 13 mg/dL 7-23 1803792483) GLUCOSE (test code = 165 mg/dL 70-110 H 3339239793) CREATININE (test code = 0.92 mg/dL 0.5-1.04 2658170134) CALCIUM (test code = 8.5 mg/dL 8.6-10.6 L 0447172298) eGFR Calculation mL/min/1.73m2 (Non-) (test code = 2697051922) eGFR Calculation mL/min/1.73m2 () (test code = 5052290736) GUICHO (test code = GUICHO) Association of Glomerular Filtration Rate (GFR) and [...] tests). Lab Interpretation Abnormal (test code = 48591-1) [facility] 00:48:00 Test Item Value Reference Range Interpretation Comments MAGNESIUM (test code = 3678858635) 1.5 mg/dL 1.7-2.4 L Lab Interpretation (test code = Abnormal 65546-2) [facility] HospitalPROTHROMBIN TIME / [id number] 00:29:00 Test Item Value Reference Range Interpretation Comments PROTIME PATIENT (test See_Comment H [Auto mated message] code = 5964-2) The system [employer] generated this result transmitted ref erence range: 10.1 - 1 2.6 Seconds. The reference range was not used to int erpret this result as normal/abnormal . INR (test code = 6301-6) Nor mal INR <1.1; Warfarin Therap eutic range 2.0 to 3. 0 or 2.5 to 3.5, dep ending upon the indica tions. Lab Interpretation (test Abnormal code = 62409-9) [facility] HospitalaPTT2020-09-11 00:29:00 Test Item Value Reference Range Interpretation Comments APTT Patient (test code = See_Comment [ Automated message] 3173-2) The system [employer] generated this result transmitted ref erence range: 26 - 36 Seconds. The re ference range was not u sed to interpret this result as normal/abnor mal. Lab Interpretation (test Normal code = 60266-5) [facility] WITHOUT [id number] 00:24:00 Test Item Value Reference Range Interpretation Comments WBC (test code = 6690-2) See_Comment H [A utomated message] The system [employer] generated this result transmit carl reference range : 4.30 - 11.10 10*3/?L. The reference range was not used to interpret this result as normal/abnormal . RBC (test code = 789-8) See_Comment L [Au tomated message] The system [employer] generated this result transmit carl reference range [...] 777-3) See_Comment [Au tomated message] The system [employer] generated this result transmit carl reference range : 166 - 358 10*3/?L. The reference range was not used to interpret this result as normal/abnormal . MPV (test code = 10.8 fL 9.5-12.9 92992-0) RDW-CV (test code = 12.0 % 12-15.5 788-0) RDW-SD (test code = 44.0 fL 39-49.9 17096-0) NRBC x10^3 (test code = <0.01 See_Comment [Au tomated message] 9633569322) The system [employer] generated this result transmit carl reference range : 10*3/?L. The reference range was not used to interpret this result as normal/abnormal . NRBC/100 WBC (test code See_Comment [Au tomated message] = 4812002885) The system [facility] generated this result transmit carl reference range : 0.0 - 10.0 /100 WBC s. The reference r madelin was not used to interpret this result as normal/abnormal . IPF % (test code = 1595326446) Lab Interpretation (test Abnormal code = 75227-6) [facility] METABOLIC PANEL (NA, K, CL, CO2, GLUCOSE, BUN, CREATININE, CA)2020-07-25 12:05:00 Test Item Value Reference Range Interpretation Comments NA (test code = 137 mmol/L 135-145 1803099534) K (test code = 4.0 mmol/L 3.5-5 9642414665) CL (test code = 104 mmol/L 98-108 3405970117) CO2 TOTAL (test code = 28 mmol/L 23-31 3863413250) AGAP (test code = 2-16 2503940030) BUN (test code = 13 mg/dL 7-23 1036133315) GLUCOSE (test code = 207 mg/dL 70-110 H 6867756407) CREATININE (test code = 0.79 mg/dL 0.5-1.04 9023940947) CALCIUM (test code = 8.5 mg/dL 8.6-10.6 L 8653292747) eGFR Calculation mL/min/1.73m2 (Non-) (test code = 0806457916) eGFR Calculation mL/min/1.73m2 () (test code = 1505621512) GUICHO (test code = GUICHO) Association of Glomerular Filtration Rate (GFR) and [...] tests). Lab Interpretation Abnormal (test code = 43673-5) [facility] WITHOUT [id number] 12:02:00 Test Item Value Reference Range Interpretation Comments WBC (test code = 6690-2) See_Comment H [A utomated message] The system [employer] generated this result transmit carl reference range : 4.30 - 11.10 10*3/?L. The reference range was not used to interpret this result as normal/abnormal . RBC (test code = 789-8) See_Comment L [Au tomated message] The system [employer] generated this result transmit carl reference range [...] 777-3) See_Comment [Au tomated message] The system [employer] generated this result transmit carl reference range : 166 - 358 10*3/?L. The reference range was not used to interpret this result as normal/abnormal . MPV (test code = 10.9 fL 9.5-12.9 86105-5) RDW-CV (test code = 12.1 % 12-15.5 788-0) RDW-SD (test code = 43.3 fL 39-49.9 03302-3) NRBC x10^3 (test code = <0.01 See_Comment [Au tomated message] 2393881964) The system [employer] h generated this result transmit carl reference range : 10*3/?L. The reference range was not used to interpret this result as normal/abnormal . NRBC/100 WBC (test code See_Comment [Au tomated message] = 2073545886) The system [employer] generated this result transmit carl reference range : 0.0 - 10.0 /100 WBC s. The reference r madelin was not used to interpret this result as normal/abnormal . IPF % (test code = 3296687497) Lab Interpretation (test Abnormal code = 95210-2) [facility] HospitalABORH [id number] 08:01:35 Test Item Value Reference Range Interpretation Comments ABO & RH (test code A Positive Performe d at [place] = 20) Laboratory [facility] [place] [address]Jnlx Free: [phone] A No. [id number] [facility] HospitalType and Screen - ONCE [id number] 05:04:45 Test Item Value Reference Range Interpretation Comments ABO & RH (test code A POSITIVE Performe d at [facility] = 20) Laboratory [facility] [place] [address] s [id number] Free: [phone] A No. [id number] IAT (test code = Negative Performed a t [place] 1185) Laboratory [facility] [place] [address] s 134[address]Mwpj Free: [phone] A No. [id number] [facility] HospitalXR ABDOMEN 1 [id number] 13:39:15EXAM: XR ABDOMEN 1 07/24/2020 1:46 AM. [...] reviewed this study and agree with theabove report.[facility], Radiant Results Inft User - 07/24/2020 [...] reviewed this study and agree with theabove report.[facility] (NA, K, CL, CO2, GLUCOSE, BUN, CREATININE, CA)2020-07-24 08:29:00 Test Item Value Reference Range Interpretation Comments NA (test code = 137 mmol/L 135-145 1278147997) K (test code = 4.1 mmol/L 3.5-5 Slight 1396315377) hemolysis CL (test code = 102 mmol/L 98-108 5388271510) CO2 TOTAL (test code 24 mmol/L 23-31 = 4022949615) AGAP (test code = 2-16 1517934518) BUN (test code = 19 mg/dL 7-23 Slight 8110863855) hemolysis GLUCOSE (test code = 170 mg/dL 70-110 H 8599634901) CREATININE (test code 0.93 mg/dL 0.5-1.04 = 8419082346) CALCIUM (test code = 8.9 mg/dL 8.6-10.6 7475765972) eGFR Calculation mL/min/1.73m2 (Non-) (test code = 6425915833) eGFR Calculation mL/min/1.73m2 () (test code = 3428106736) GUICHO (test code = GUICHO) Association of Glomerular Filtration Rate (GFR) and [...] tests). Lab Interpretation Abnormal (test code = 18787-6) [facility] WITHOUT [id number] 08:27:00 Test Item Value Reference Range Interpretation Comments WBC (test code = See_Comment H [Automated message] 6690-2) The system [employer] generated this result transmitted ref erence range: 4.30 - 1 1.10 10*3/?L. The reference range was not used to int erpret this result as normal/abnormal . RBC (test code = 789-8) See_Comment [Au tomated message] The system [employer] generated this result transmitted ref erence range: [...] 777-3) See_Comment [Au tomated message] The system [employer] generated this result transmitted ref erence range: 166 - 35 8 10*3/?L. The reference range was not used to int erpret this result as normal/abnormal . MPV (test code = 11.0 fL 9.5-12.9 69089-7) RDW-CV (test code = 12.0 % 12-15.5 788-0) RDW-SD (test code = 41.5 fL 39-49.9 28010-0) NRBC x10^3 (test code = <0.01 See_Comment [Au tomated message] 3302555839) The system [employer] generated this result transmitted ref erence range: 10*3/?L. The reference range was not used to int erpret this result as normal/abnormal . NRBC/100 WBC (test code See_Comment [Au tomated message] = 3917024120) The system [facility] generated this result transmitted ref erence range: 0.0 - 10 .0 /100 WBCs. The reference range was not used to int erpret this result as normal/abnormal . IPF % (test code = 5.7 % 1.3-7.7 Platelet count 7942170735) measured by fluorescence me thod. Lab Interpretation Abnormal (test code = 29585-5) [facility] HospitalCOVID-19 (ID NOW RAPID TESTING)2020-07-24 01:08:00 Test Item Value Reference Range Interpretation Comments SARS-CoV-2 Rapid ID NOW Not Detected Not Detected (test code = 32295-6) GUICHO (test code = GUICHO) ID NOW COVID-19 Assay is an isothermal nucleic acid amplification test intended for the qualitative detection of nucleic acid from SARS-CoV-2 viral RNA in nasopharyngeal ([employer]) specimens. It is used under Emergency Use [...] indicated. Lab Interpretation Normal (test code = 81374-3) [facility] HospitalLactic Acid Whole [id number] 00:34:00 Test Item Value Reference Range Interpretation Comments LACTIC ACID (test code = 3.03 mmol/L 8576161216) [facility] HospitalLactic Acid Whole [id number] 21:59:00 Test Item Value Reference Range Interpretation Comments LACTIC ACID (test code = 2.30 mmol/L 6328633287) [facility] HospitalCT ABDOMEN PELVIS W [id number] 21:22:06CT Abdomen and Pelvis with intravenous contrast. [...] however, findings are not suggestive ofacute appendicitis. [facility], Radiant Results Inft User - 07/23/2020 [...] visualized, however, findings are not suggestive ofacute appendicitis.[facility] Met[facility] (NA, K, CL, CO2, GLUCOSE, BUN, CREATININE, CA)2020-07-23 20:11:00 Test Item Value Reference Range Interpretation Comments NA (test code = 137 mmol/L 135-145 6979806489) K (test code = 3.3 mmol/L 3.5-5 L 6314073013) CL (test code = 97 mmol/L 98-108 L 0680767353) CO2 TOTAL (test code = 25 mmol/L 23-31 4442635460) AGAP (test code = 2-16 5360229780) BUN (test code = 18 mg/dL 7-23 6357156238) GLUCOSE (test code = 236 mg/dL 70-110 H 2707472035) CREATININE (test code = 0.94 mg/dL 0.5-1.04 5048192275) CALCIUM (test code = 10.4 mg/dL 8.6-10.6 0303004579) eGFR Calculation mL/min/1.73m2 (Non-) (test code = 2294521940) eGFR Calculation mL/min/1.73m2 () (test code = 8351711473) GUICHO (test code = GUICHO) Association of Glomerular Filtration Rate (GFR) and [...] tests). Lab Interpretation Abnormal (test code = 44773-5) [facility] HospitalHepatic Function Panel (ALB, T.PRO, BILI T, BU/BC, ALT, AST, ALK PHOS)2020-07-23 20:11:00 Test Item Value Reference Range Interpretation Comments TOTAL BILI (test code = 1262528102) 1.0 mg/dL 0.1-1.1 BILI UNCON (test code = 6088326876) 1.0 mg/dL 0.1-1.1 BILI CONJ (test code = 6267335811) 0.0 mg/dL 0-0.3 T PROTEIN (test code = 0718684846) 8.9 g/dL 6.3-8.2 H ALBUMIN (test code = 8400579082) 4.7 g/dL 3.5-5 ALK PHOS (test code = 2735818155) 77 U/L 34-122 ALTv (test code = 1742-6) 19 U/L 5-35 AST(SGOT) (test code = 0175435115) 24 U/L 13-40 Lab Interpretation (test code = Abnormal 39799-1) [facility] HospitalLipase [id number] 20:11:00 Test Item Value Reference Range Interpretation Comments LIPASE (test code = 9442601222) 26 U/L 0-220 Lab Interpretation (test code = Normal 46928-6) [facility] HospitalCBC with [id number] 19:48:00 Test Item Value Reference Range Interpretation Comments WBC (test code = See_Comment H [Automated 0190-2) message] The system which generated this result transmit carl reference range : 4.30 - 11.10 10*3/?L. The reference range was not used to interpret this result as normal/abnormal . RBC (test code = See_Comment H [Automated 989-8) message] The system which generated this result [...] RDW-SD (test code = 39.7 fL 39-49.9 75585-2) RDW-CV (test code = 11.5 % 12-15.5 L 788-0) PLT (test code = See_Comment [Automated 777-3) message] The system which generated this result transmit carl reference range : 166 - 358 10*3/ ?L. The reference range was not u sed to interpret th is result as normal/abnormal . MPV (test code = 10.4 fL 9.5-12.9 58979-8) NRBC/100 WBC (test See_Comment [Automat ed code = 7569613504) message] The system which generated this result transmit carl reference range : 0.0 - 10.0 /100 WBCs. The reference range was not used to interpret this result as normal/abnormal . NRBC x10^3 (test code <0.01 See_Comment [Auto mated = 0938432722) message] The system which generated this result transmit carl reference range : 10*3/?L. The reference range was not used to interpret this result as normal/abnormal . GRAN MAT (NEUT) % 90.3 % (test code = 770-8) IMM GRAN % (test code 0.50 % = 0207770064) LYMPH % (test code = 5.4 % 736-9) MONO % (test code = 3.7 % 5905-5) EOS % (test code = 0.0 % 713-8) BASO % (test code = 0.1 % 706-2) GRAN MAT x10^3(ANC) 12.67 10*3/uL 1.88-7.09 H (test code = 6374361608) IMM GRAN x10^3 (test 0.07 10*3/uL 0-0.06 H code = 5978079460) LYMPH x10^3 (test code 0.76 10*3/uL 1.32-3.29 L = 731-0) MONO x10^3 (test code 0.52 10*3/uL 0.33-0.92 = 742-7) EOS x10^3 (test code = <0.03 0.03-0.39 L 711-2) BASO x10^3 (test code <0.03 0.01-0.07 = 704-7) Lab Interpretation Abnormal (test code = 14787-4) [facility] HospitalUrinalysis2020-09-08 19:37:00 Test Item Value Reference Range Interpretation Comments APPEARANCE (test code = Hazy Clear A 1904535191) COLOR (test code = Kathleen Yellow A 1096011139) PH (test code = 4.8-8.0 2784789023) SP GRAVITY (test code = 1.003-1.030 H 1111812247) GLU U QUAL (test code = 50 mg/dL Normal A 9622782453) BLOOD (test code = Negative Negative 3903808224) KETONES (test code = 80 mg/dL Negative A 2938795407) PROTEIN (test code = 100 mg/dL Negative A 2887-8) UROBILIN (test code = Normal Normal 9228989475) BILIRUBIN (test code = Negative Negative 8018633350) NITRITE (test code = Negative Negative 5721611593) LEUK CHELY (test code = Negative Negative 8262960670) RBC/HPF (test code = See_Comment [Autom ated message] 8996202684) The system [employer] generated this result transmit carl reference range : 0 - 3 HPF. The refe rence range was not u sed to interpret th is result as normal/abnormal . WBC/HPF (test code = See_Comment [Autom ated message] 6329136362) The system [employer] generated this result transmit carl reference range : 0 - 5 HPF. The refe rence range was not u sed to interpret th is result as normal/abnormal . BACTERIA (test code = Few Negative A 3156158130) MUCOUS (test code = Marked Negative LPF A 1630537023) SQ EPITH (test code = HPF 4545939679) Lab Interpretation (test Abnormal code = 93534-5) [facility] HospitalCT ABDOMEN PELVIS W [id number] 18:53:08CT Abdomen and Pelvis with intravenous contrast. [...] acute intra- abdominal or intrapelvic pathology detected. [facility], Radiant Results Inft User - 06/15/2019 [...] Unremarkable.CONCLUSION: No acute intra-abdominal or intrapelvic pathology detected.[facility] Metabolic Panel (NA, K, CL, CO2, GLUCOSE, BUN, CREATININE, CA)2019-06-15 18:17:00 Test Item Value Reference Range Interpretation Comments NA (test code = 140 mmol/L 135-145 7785358495) K (test code = 3.5 mmol/L 3.5-5 2048383537) CL (test code = 105 mmol/L 98-108 6418328300) CO2 TOTAL (test code = 25 mmol/L 23-31 3237035443) AGAP (test code = 2-16 5978514076) BUN (test code = 10 mg/dL 7-23 9773695362) GLUCOSE (test code = 162 mg/dL 70-110 H 2459460833) CREATININE (test code = 0.81 mg/dL 0.5-1.04 6085789138) CALCIUM (test code = 8.7 mg/dL 8.6-10.6 6522766383) eGFR Calculation mL/min/1.73m2 (Non-) (test code = 8065625450) eGFR Calculation mL/min/1.73m2 () (test code = 9701158830) GUICHO (test code = GUICHO) Association of Glomerular Filtration Rate (GFR) and [...] tests). Lab Interpretation Abnormal (test code = 21599-9) [facility] HospitalHepatic Function Panel (ALB, T.PRO, BILI T, BU/BC, ALT, AST, ALK PHOS)2019-06-15 18:17:00 Test Item Value Reference Range Interpretation Comments TOTAL BILI (test code = 7533409753) 0.7 mg/dL 0.1-1.1 BILI UNCON (test code = 2027219507) 0.6 mg/dL 0.1-1.1 BILI CONJ (test code = 2723428826) 0.0 mg/dL 0-0.3 T PROTEIN (test code = 6891424735) 7.7 g/dL 6.3-8.2 ALBUMIN (test code = 8676248146) 4.2 g/dL 3.5-5 ALK PHOS (test code = 5473414189) 59 U/L 34-122 ALT(SGPT) (test code = 1617655935) 16 U/L 9-51 AST(SGOT) (test code = 4969413384) 20 U/L 13-40 Lab Interpretation (test code = Normal 18714-9) [facility] HospitalLipase [id number] 18:17:00 Test Item Value Reference Range Interpretation Comments LIPASE (test code = 3543493287) 48 U/L 0-220 Lab Interpretation (test code = Normal 30210-8) [facility] HospitalUrinalysis2019-08-01 18:06:00 Test Item Value Reference Range Interpretation Comments APPEARANCE (test code Slightly Hazy Clear A = 8526258497) COLOR (test code = Yellow Yellow 2138248058) PH (test code = 4.8-8.0 5371036617) SP GRAVITY (test code >=1.030 1.003-1.030 = 6393970317) GLU U QUAL (test code Negative Negative = 1161188110) BLOOD (test code = Negative Negative 8653821109) KETONES (test code = Negative Negative 5090936891) PROTEIN (test code = Negative Negative 2887-8) UROBILIN (test code = 0.2 mg/dL See_Comment [Auto mated 7635861857) message] The system which generated this result transmit carl reference range : 0-1.0 mg/dL. Th e reference range was not used to interpret this result as normal/abnormal . BILIRUBIN (test code = Negative Negative 5957008488) NITRITE (test code = Negative Negative 6855932022) LEUK CHELY (test code Negative Negative = 9089544730) RBC/HPF (test code = See_Comment [Autom ated 2138997022) message] The system which generated this result transmit carl reference range : 0 - 3 HPF. The reference range was not used to interpret this result as normal/abnormal . WBC/HPF (test code = See_Comment [Autom ated 8732769183) message] The system which generated this result transmit carl reference range : 0 - 5 HPF. The reference range was not used to interpret this result as normal/abnormal . BACTERIA (test code = Moderate Negative A 4541569325) MUCOUS (test code = Moderate Negative LPF A 5862894146) SQ EPITH (test code = HPF 0809763763) CA OXALATE (test code See_Comment H [Auto mated = 9669177924) message] The system which generated this result transmit carl reference range : <=1 HPF. The reference range was not used to interpret this result as normal/abnormal . Lab Interpretation Abnormal (test code = 72786-8) [facility] HospitalLactic Acid Whole [id number] 17:57:00 Test Item Value Reference Range Interpretation Comments LACTIC ACID (test code = 1.94 mmol/L 0.5-2.2 0563486358) Lab Interpretation (test code = Normal 23566-7) [facility] HospitalCB WITH [id number] 17:56:00 Test Item Value Reference Range Interpretation [...] RDW-SD (test code = 41.2 fL 39-49.9 05503-6) RDW-CV (test code = 11.7 % 12-15.5 L 788-0) PLT (test code = See_Comment [Automated 777-3) message] The sy stem which generated this result transmitted reference range : 166 - 358 10*3/ ?L. The reference r madelin was not used to interpret this result as normal/abnormal . MPV (test code = 10.0 fL 9.5-12.9 92348-8) NRBC/100 WBC (test See_Comment [Automat ed code = [id number]) message] The system which generated this result transmitted reference range : 0.0 - 10.0 /100 WBCs. The refer ence range was not u sed to interpret th is result as normal/abnormal . NRBC x10^3 (test code <0.01 See_Comment [Auto mated = [id number]) message] The s ystem which generated this result transmitted reference range : 10*3/?L. The reference range was not used to interpret this result as normal/abnormal . GRAN MAT (NEUT) % 72.9 % (test code = 770-8) IMM GRAN % (test code 0.10 % = 8955195567) LYMPH % (test code = 21.6 % 736-9) MONO % (test code = 4.3 % 5905-5) EOS % (test code = 0.7 % 713-8) BASO % (test code = 0.4 % 706-2) GRAN MAT x10^3(ANC) 4.88 10*3/uL 1.88-7.09 (test code = 5110856697) IMM GRAN x10^3 (test <0.03 0-0.06 code = 2077464965) LYMPH x10^3 (test code 1.45 10*3/uL 1.32-3.29 = 731-0) MONO x10^3 (test code 0.29 10*3/uL 0.33-0.92 L = 742-7) EOS x10^3 (test code = 0.05 10*3/uL 0.03-0.39 711-2) BASO x10^3 (test code 0.03 10*3/uL 0.01-0.07 = 704-7) Lab Interpretation Abnormal (test code = 37483-5) [facility] [id number] 17:24:00 Test Item Value Reference Range Interpretation Comments POCT PREG (test code = 1605) negative On board controls acceptable with present C Line (test code = 3574) POCT PREG LOT # (test code = 3575) [id number] POCT PREG TEST DATE (test 11/14/20 code = 3576) Lab Interpretation (test code = Normal 35187-2) [facility]"
[2022-10-29] MEDS ORDERED: ONDANSETRON 4 MG/2 ML VIAL ONE (03:09)
[2022-10-29] MEDS ORDERED: NA CHLORIDE 0.9% 1,000 ML ONE (03:09)
[2022-10-29] MEDS ORDERED: HYDROMORPHONE HCL 1 MG/ML INJ ONE ×2 (03:09→05:02)
[2022-10-29] MEDS ORDERED: METHYLPREDNISOLONE 125 MG INJ ONE (03:09)
[2022-10-29 03:19] LABS: Absolute Lymphocytes (CBC) 0.8 K/uL (0.7-4.9); Hematocrit 42.2 % (36.0-45.0); Lymphocytes % 22.7 % (15.3-44.8); MCV 96.1 fL (80-100); RBC Red Blood Cell Count 4.39 M/uL (3.86-4.86)
[2022-10-29 03:46] LABS: Bilirubin Total 1.1 mg/dL (0.2-1.0); Protein, Total 9.1 g/dL (6.4-8.2)
[2022-10-29 03:47] LABS: Potassium 3.6 mmol/L (3.5-5.1)
[2022-10-29] MEDS ORDERED: DIPHENHYDRAMINE 50 MG/ML VIAL ONE ×2 (03:59→06:01)
[2022-10-29] MEDS ORDERED: FAMOTIDINE 20 MG/2 ML VIAL IV ONE (05:02)
--- NOTE | 2022-10-29 06:01 | ER ---
Nurse's Notes [facility] Name: Jessica Stearns Age: 47 yrs Sex: Female : 1975 Arrival Date: 10/29/2022 Time: 02:05 Bed 8 Private MD: Diagnosis: Abdominal pain, Generalized;Nausea with vomiting, unspecified Presentation: 10/29 02:22 Chief complaint: Patient states: she started running fever 102 earlier today then bb started vomiting with abdominal pain, cough and diarrhea. Coronavirus screen: Client presents with at least one sign or symptom that may indicate coronavirus-19. Ebola Screen: No symptoms or risks identified at this time. Initial Sepsis Screen: Does the patient meet any 2 criteria? No. Patient's initial sepsis screen is negative. Does the patient have a suspected source of infection? No. Patient's initial sepsis screen is negative. Risk Assessment: Do you want to hurt yourself or someone else? Patient reports no desire to harm self or others. Onset of symptoms was October 28, 2022. 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 - Social history:: Smoking status: unknown. Screenin:54 [facility] ED Fall Risk Assessment (Adult) History of falling in the last 3 months, kl including since admission No falls in past 3 months (0 pts) Confusion or Disorientation No (0 pts) Intoxicated or Sedated No (0 pts) Impaired Gait No (0 pts) Mobility Assist Device Used No (0 pt) Altered Elimination No (0 pt) Score/Fall Risk Level 0 - 2 = Low Risk Oriented to surroundings, Maintained a safe environment, Assessed \T\ reinforced patient's understanding of fall precautions, Hourly rounding (assess needs \T\ fall precautionary measures) done. Abuse screen: Denies threats or abuse. Nutritional screening: No deficits noted. Tuberculosis screening: No symptoms or risk factors identified. Fall Risk No fall in past 12 months (0 pts). No secondary diagnosis (0 pts). IV access (20 points). Ambulatory Aid- None/Bed Rest/Nurse Assist (0 pts). Gait- Normal/Bed Rest/Wheelchair (0 pts) Mental Status- Oriented to own ability (0 pts). Total Goddard Fall Scale indicates No Risk (0-24 pts). Assessment: 03:52 General: Appears uncomfortable, well groomed, well developed, Behavior is calm, kl cooperative. General: Behavior is anxious. General: Appears. Pain: Complains of pain in abdomen diffusely Pain currently is 10 out of 10 on a pain scale. Neuro: No deficits noted. Cardiovascular: No deficits noted. Respiratory: No deficits noted. GI: Abdomen is flat, Abd is soft Abdomen is tender to palpation X 4 quads. Reports lower abdominal pain, upper abdominal pain. : No deficits noted. No signs and/or symptoms were reported regarding the genitourinary system. EENT: No deficits noted. No signs and/or symptoms were reported regarding the EENT system. 04:50 Reassessment: Patient and/or family updated on plan of care and expected duration. Pain ha1 level reassessed. Patient is alert, oriented x 3, equal unlabored respirations, skin warm/dry/pink. 05:50 Reassessment: Patient and/or family updated on plan of care and expected duration. Pain ha1 level reassessed. Patient is alert, oriented x 3, equal unlabored respirations, skin warm/dry/pink. Vital Signs: 02:22 BP 99 / 88; Pulse 124; Resp 18 S; Temp 99.5(O); Pulse Ox 99% on R/A; Weight 63.5 kg bb (R); Height 5 ft. 7 in. (170.18 cm) (R); Pain 10/10; 03:55 BP 123 / 88; Pulse 72; Resp 18; Pulse Ox 100% on R/A; kl 04:50 BP 113 / 64; Pulse 75; Resp 17; Pulse Ox 98% on R/A; ha1 05:50 BP 113 / 64; Pulse 76; Resp 16 S; Pulse Ox 98% on R/A; ha1 02:22 Body Mass Index 21.93 (63.50 kg, 170.18 cm) bb ED Course: 02:05 Patient arrived in ED. es 02:15 Dc Steve MD is Attending Physician. kdr 02:25 Patient has correct armband on for positive identification. Placed in gown. Bed in low ha1 position. Call light in reach. Side rails up X 1. 02:26 Triage completed. bb 02:27 Arm band placed on Patient placed in an exam room, on a stretcher, on pulse oximetry. bb 02:50 Inserted saline lock: 18 gauge in right upper arm, using aseptic technique. Blood as6 collected. ultrasound guided. 02:59 CMP Sent. as6 02:59 CBC with Diff Sent. as6 02:59 Lipase Sent. as6 03:41 Accessed peripheral vein via ultrasound, utilizing dynamic ultrasound technique bb Powerglide midline 20g 10cm to right upper arm with good blood return and flushes easily pt tolerated well. 06:31 No provider procedures requiring assistance completed. IV discontinued, intact, ha1 bleeding controlled, No redness/swelling at site. Pressure dressing applied. Administered Medications: 03:45 Drug: NS 0.9% 1000 ml Route: IV; Rate: 1 bolus; Site: right upper arm; bb 03:52 Not Given (Patient Refused): Zofran (Ondansetron) 4 mg IVP once; over 2 minutes kl 03:52 Drug: Dilaudid (HYDROmorphone) 1 mg Route: IVP; Site: right upper arm; kl 03:52 Drug: SOLU-Medrol (methylPrednisoLONE) 125 mg Route: IVP; Site: right upper arm; kl 04:04 Drug: Benadryl (diphenhydrAMINE) 25 mg Route: IVP; Site: right upper arm; kl 04:10 Drug: Pepcid (famotidine) 20 mg Route: IVP; Site: right upper arm; kl 05:06 Drug: Dilaudid (HYDROmorphone) 1 mg Route: IVP; Site: right upper arm; kl 06:02 Drug: Benadryl (diphenhydrAMINE) 25 mg Route: IVP; Site: right upper arm; kl Medication: 06:32 VIS not applicable for this client. ha1 Outcome: 06:00 Discharge ordered by . kdr 06:31 Discharged to home via wheelchair. ha1 06:31 Condition: stable 06:31 Discharge instructions given to patient, Instructed on discharge instructions, follow up and referral plans. medication usage, Demonstrated understanding of instructions, follow-up care, medications. 06:33 Patient left the ED. ha1 Signatures: Claudia Pérez RN RN Dc Alexis MD MD kdr Salyer, Edna es Ballard, Brenda RN RN bb Jefferson Fermin RN RN as6 Lilian Sanchez RN RN ha1
--- NOTE | 2022-10-29 06:01 | EDPHYS ---
Physician Documentation [facility] Name: Jessica Stearns Age: 47 yrs Sex: Female : 1975 Arrival Date: 10/29/2022 Time: 02:05 Bed 8 Private MD: ED Physician Dc Steve HPI: 10/29 02:27 This 47 yrs old Black Female presents to ER via Ambulatory with complaints of kdr Nausea/Vomiting, Fever, Abdominal Pain, Cough. 02:27 The patient presents to the emergency department with nausea, that is mild, that is kdr moderate, vomiting, that is intermittent, abdominal pain, of the abdomen diffusely, described as achy, crampy, sharp, waxing and waning. Onset: The symptoms/episode began/occurred gradually, yesterday. Possible causes: flare up of bowel problem, Crohn's disease, ulcerative colitis. The symptoms are aggravated by nothing. The symptoms are alleviated by nothing. Associated signs and symptoms: The patient has no apparent associated signs or symptoms. Severity of symptoms: At their worst the symptoms were mild in the emergency department the symptoms are unchanged. The patient has not experienced similar symptoms in the past. The patient has not recently seen a physician. 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 - Social history:: Smoking status: unknown. ROS: 02:27 Constitutional: Negative for fever, chills, and weight loss, Eyes: Negative for injury, kdr pain, redness, and discharge, ENT: Negative for injury, pain, and discharge, Neck: Negative for injury, pain, and swelling, Cardiovascular: Negative for chest pain, palpitations, and edema, Respiratory: Negative for shortness of breath, cough, wheezing, and pleuritic chest pain, Back: Negative for injury and pain, : Negative for injury, bleeding, discharge, and swelling, MS/Extremity: Negative for injury and deformity, Skin: Negative for injury, rash, and discoloration, Neuro: Negative for headache, weakness, numbness, tingling, and seizure activity. Psych: Negative for depression, anxiety, suicide ideation, homicidal ideation, and hallucinations, Allergy/Immunology: Negative for hives, rash, and allergies, Endocrine: Negative for neck swelling, polydipsia, polyuria, polyphagia, and marked weight changes, Hematologic/Lymphatic: Negative for swollen nodes, abnormal bleeding, and unusual bruising. 02:27 Abdomen/GI: Positive for abdominal pain, nausea and vomiting, Negative for constipation, abdominal cramps, abdominal distension, anorexia, dysphagia, hematemesis, black/tarry stool, rectal pain, rectal bleeding, bowel incontinence. Exam: 02:27 Constitutional: This is a well developed, well nourished patient who is awake, alert, kdr and in no acute distress. Head/Face: Normocephalic, atraumatic. Eyes: Pupils equal round and reactive to light, extra-ocular motions intact. Lids and lashes normal. Conjunctiva and sclera are non-icteric and not injected. Cornea within normal limits. Periorbital areas with no swelling, redness, or edema. Neck: Trachea midline, no thyromegaly or masses palpated, and no cervical lymphadenopathy. Supple, full range of motion without nuchal rigidity, or vertebral point tenderness. No Meningismus. Chest/axilla: Normal chest wall appearance and motion. Nontender with no deformity. No lesions are appreciated. Cardiovascular: Regular rate and rhythm with a normal S1 and S2. No gallops, murmurs, or rubs. Normal PMI, no JVD. No pulse deficits. Respiratory: Lungs have equal breath sounds bilaterally, clear to auscultation and percussion. No rales, rhonchi or wheezes noted. No increased work of breathing, no retractions or nasal flaring. Back: No spinal tenderness. No costovertebral tenderness. Full range of motion. Skin: Warm, dry with normal turgor. Normal color with no rashes, no lesions, and no evidence of cellulitis. MS/ Extremity: Pulses equal, no cyanosis. Neurovascular intact. Full, normal range of motion. Neuro: Awake and alert, GCS 15, oriented to person, place, time, and situation. Cranial nerves II-XII grossly intact. Motor strength 5/5 in all extremities. Sensory grossly intact. Cerebellar exam normal. Normal gait. Psych: Awake, alert, with orientation to person, place and time. Behavior, mood, and affect are within normal limits. 02:27 Abdomen/GI: Inspection: abdomen appears normal, Bowel sounds: active, all quadrants, Palpation: soft, mild abdominal tenderness, moderate abdominal tenderness, in all quadrants. Vital Signs: 02:22 BP 99 / 88; Pulse 124; Resp 18 S; Temp 99.5(O); Pulse Ox 99% on R/A; Weight 63.5 kg bb (R); Height 5 ft. 7 in. (170.18 cm) (R); Pain 10/10; 03:55 BP 123 / 88; Pulse 72; Resp 18; Pulse Ox 100% on R/A; kl 04:50 BP 113 / 64; Pulse 75; Resp 17; Pulse Ox 98% on R/A; ha1 05:50 BP 113 / 64; Pulse 76; Resp 16 S; Pulse Ox 98% on R/A; ha1 02:22 Body Mass Index 21.93 (63.50 kg, 170.18 cm) MDM: 02:27 Data reviewed: vital signs, nurses notes, lab test result(s). Counseling: I had a kdr detailed discussion with the patient and/or guardian regarding: the historical points, exam findings, and any diagnostic results supporting the discharge/admit diagnosis, lab results. 06:00 Patient medically screened. kdr 10/29 02:23 Order name: CBC with Diff; Complete Time: 03:47 kdr 10/29 02:23 Order name: CMP kdr 10/29 02:23 Order name: Lipase kdr 10/29 02:23 Order name: IV Saline Lock; Complete Time: 02:59 kdr 10/29 02:23 Order name: Labs collected and sent; Complete Time: 02:59 kdr 10/29 02:23 Order name: Urine Dipstick-Ancillary (obtain specimen) kdr 10/29 02:23 Order name: Urine Test (obtain specimen) kdr Administered Medications: 03:45 Drug: NS 0.9% 1000 ml Route: IV; Rate: 1 bolus; Site: right upper arm; bb 03:52 Not Given (Patient Refused): Zofran (Ondansetron) 4 mg IVP once; over 2 minutes kl 03:52 Drug: Dilaudid (HYDROmorphone) 1 mg Route: IVP; Site: right upper arm; kl 03:52 Drug: SOLU-Medrol (methylPrednisoLONE) 125 mg Route: IVP; Site: right upper arm; kl 04:04 Drug: Benadryl (diphenhydrAMINE) 25 mg Route: IVP; Site: right upper arm; kl 04:10 Drug: Pepcid (famotidine) 20 mg Route: IVP; Site: right upper arm; kl 05:06 Drug: Dilaudid (HYDROmorphone) 1 mg Route: IVP; Site: right upper arm; kl 06:02 Drug: Benadryl (diphenhydrAMINE) 25 mg Route: IVP; Site: right upper arm; Disposition Summary: 10/29/22 06:00 Discharge Ordered Location: Home kdr Problem: new kdr Symptoms: have improved kdr Condition: Stable kdr Diagnosis - Abdominal pain, Generalized kdr - Nausea with vomiting, unspecified kdr Followup: kdr - With: Private Physician - When: 2 - 3 days - Reason: If symptoms return, Further diagnostic work-up, Recheck today's complaints, Continuance of care, Re-evaluation by your physician Discharge Instructions: - Discharge Summary Sheet kdr - Nausea and Vomiting, Adult, [id number] kdr - Abdominal Pain, Adult, [id number] kdr Forms: - Medication Reconciliation Form kdr - Thank You Letter kdr - Work release form ha1 Prescriptions: - promethazine 25 mg Oral Tablet - take 1 tablet by ORAL route every 6 hours As needed; 20 tablet; Refills: 0, kdr Product Selection Permitted Signatures: Dispatcher [employer] Claudia Krishnan RN Dc Barry MD MD kdr Ballard, Brenda, RN RN bb Ayala, Heidy, RN RN ha1
[2022-10-29 06:59] VITALS: TEMP 99.5
[2022-10-29 07:01] VITALS: BP 113/64; O2SAT 98
--- NOTE | 2022-10-29 13:49 | EKG ---
Test Date: 2022-10-29 Test Time: 02:37:34 Link Machine Operator: ISRA MEASUREMENT RESULTS: Intervals: Rate: 118 OK: 186 QRSD: 74 QT: 304 QTc: 426 [place]: P: 61 OK: 186 QRS: 74 T: 78 INTERPRETIVE STATEMENTS: Sinus tachycardia Otherwise normal ECG Compared to ECG 11/01/2020 08:49:51 No significant changes Electronically Signed On 10-29-22 13:49:10 MULTI SENSOR OPERATOR by Stevie Mcnair
== END 2022-10-29 06:33 | disposition home or self-care (01) ==
LOC: ER 02:02
DX: R10.84 Generalized abdominal pain (principal); R11.2 Nausea with vomiting, unspecified
CPT/HCPCS: 36415; 80053; 83690; 85025; 93005; 96374; 96375; 99284; J1170; J1200; J2405; J2930; J7030

== ENCOUNTER 2023-03-08 18:28 | Emergency (ER) | payer SELFPAY ==
--- OUTSIDE RECORDS SUMMARY | 2023-03-08 18:41 | XMS REPORT | Continuity of Care Document ---
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 (KLOR-CON 12-29- Oral, ity of M20) tablet 07:45: 06:54 ONCE, 1 [place] 20 mEq 00 :00 dose, [facility] 10/28/20 Branch at 0145, Routine magnesium 2019-11 2020- No 2g 2 g, IV Univ ers sulfate in 12-28- Piggyback, it y of water 2 18:30: 00:58 ONCE, 1 [place] gram/50 mL 00 :00 dose, [facility] ryann (4 %) 10/27/20 Branch infusion 2 [...] Yes 10mL 10 mL, Univer s (NS) -12 Slow IV ity of injection 15:39: Push, [...] 500 mg, IV Univers LE in NaCl 12-26-15 Infusion, ity of (iso-os) 02:30: 15:20 Q8H [...] on Fri Medical mg/15 mL 10/18/20 at [facility] h solution 10 2000, mg Until Discontinu ed, Routine HYDROcodone 2019-11 Yes [id number] 1{tbl} Take 1 Un thor -acetaminop 2-05 tablet by ity of hen (NORCO) 00:00: mouth [place] 10-325 mg 00 every 6 Medical tablet (six) Branch hours as needed for Pain (scale 7-10). Indication s: acute pain ibuprofen 2019-11 Yes [id number] 600mg Take 1 U nivers 600 mg 2-05 tablet by ity of tablet 00:00: mouth [place] 00 every 6 Medical (six) Branch hours as needed for Pain (scale 1-3). proMETHazin 2019-11 Yes [id number] 25mg Take 1 Univers e 25 mg [...] Indication s: acute pain ibuprofen 2019-11 Yes [id number] 600mg Take 1 U nivers 600 mg 2-05 tablet by ity of tablet 00:00: mouth [place] 00 every 6 Medical (six) Branch hours as needed for Pain (scale 1-3). proMETHazin 2019-11 Yes [id number] 25mg Take 1 Univers e 25 mg 2-05 tablet by ity of tablet 00:00: mouth [place] 00 every 8 Medical (eight) Branch hours as needed for Nausea and Vomiting (N/V). gabapentin 2019-11- No [id number] 300mg Take 1 Univers 300 mg 2-05 12-20 capsule by ity of capsule 00:00: 05:59 mouth 3 [place] 00 :00 (three) Medical times Branch daily for 14 days. gabapentin 2019-11- No [id number] 300mg Take 1 Univers 300 mg 2-05 [...] Indication s: acute pain ALPRAZolam 2019-11- No [id number] 2mg Take 1 Univers 2 mg tablet 2-05 12-13 tablet by it y of 00:00: 05:59 mouth 2 [place] 00 :00 (two) Medical times Branch daily for 7 days. ALPRAZolam 2019-11- No [id number] 2mg Take 1 Univers 2 mg tablet 2-05 12-13 tablet by it y of 00:00: 05:59 mouth 2 [place] 00 :00 (two) Medical times Branch daily for 7 days. simethicone 2019-11- No [id number] 80mg Take 1 Univers 80 mg 2-05 12-11 tablet by ity of chewable 00:00: 05:59 mouth [place] tablet 00 :00 after Medical meals and Branch at bedtime for 5 days. simethicone 2019-11 2020- No [id number] 80mg Take 1 Univers 80 mg 2-05 12-11 tablet by ity of chewable 00:00: 05:59 mouth [place] tablet 00 :00 after Medical meals and Branch at bedtime for 5 days. ibuprofen 2019-11 2020- No [id number] 600mg Take 1 Univers 600 mg 2-05 12-10 tablet by ity of tablet 00:00: 00:00 mouth [place] 00 :00 every 6 Medical (six) Branch hours as needed for Pain (scale 1-3). simethicone 2019- 2020- No [id number] 80mg Take 1 Univers 80 mg 2-05 12-10 tablet by ity of chewable 00:00: 00:00 mouth [place] tablet 00 :00 after Medical meals and Branch at bedtime for 5 days. gabapentin 2019-11- No [id number] 300mg Take 1 Univers 300 mg 2-05 12-10 capsule by ity of capsule 00:00: 00:00 mouth 3 [place] 00 :00 (three) Medical times Branch daily for 14 days. ALPRAZolam 2019-11- No [id number] 2mg Take 1 Univers 2 mg tablet 2 12-10 tablet by it y of 00:00: 00:00 mouth 2 [place] 00 :00 (two) Medical times Branch daily for 7 days. proMETHazin 2019-11- No [id number] 25mg Take 1 Univers e 25 mg 2- 12-10 tablet by ity of tablet 00:00: 00:00 mouth [place] 00 :00 every 8 Medical (eight) Branch hours as needed for Nausea and Vomiting (N/V). proMETHazin 2019-11- No [id number] 25mg Take 1 Univers e 25 mg -03 26-05 tablet by ity of tablet 00:00: 00:00 mouth [place] 00 :00 every 4 Medical (four) Branch hours as needed for Nausea and Vomiting (N/V) for up to 7 days. HYDROmorpho 2019-11 Yes 1mg 1 mg, Slow Univers ne 2-04 IV Push, ity of (DILAUDID) 02:56: Q6HPRN, [place] injection 1 33 Starting Medi ryann mg [facility] Branch 10/17/20 at 205, Until Discontinu ed, Routine, Pain (scale 7-10)
U se approved by (Faculty): GENERAL SURGERY
General surgeon approving: Darren Chun ALPRAZolam 2019-11 Yes .25mg 0.25 mg, Un thor (XANAX) 2-04 Oral, BID, ity of tablet 0.25 02:00: First dose [place] mg 00 on [facility] Medical 10/17/20 at Branch 2000, Until Discontinu ed, Routine HYDROcodone 2019-11- No 5mg 5 mg, Univ ers -acetaminop 2 12-04 Oral, Q4H, i ty of hen (HYCET) 22:00: 22:24 First dose [place] 7.5-325 00 :22 (after Medical mg/15 mL last Branch solution 5 modificati mg on) on [facility] 10/17/20 at 1600, Until Discontinu ed, Routine bisacodyL 2019-11 Yes 10mg 10 mg, Univer s (DULCOLAX) 2-03 Rectal, ity of suppository 03:00: QHSPRN, [place] 10 mg 00 Starting Medical Wed [place] 10/16/20 at 2100, Until Discontinu ed, Routine, [...] dose Medi ryann 1,000 mg on Wed [place] 10/16/20 at 1400, Until Discontinu ed, Routine [...] [place] 10 mg 00 :00 dose, Wed [facility] 10/16/20 at Branch 0945, Routine melatonin 2019-11 Yes 3mg 3 mg, Univers (MELATIN) 12-17 Oral, QHS, ity of tablet 3 mg 03:00: First dose [place] 00 on Wed [facility] 10/15/20 at Branch 2100, Until Discontinu ed, Routine acetaminoph 2019-11 2020- No 650mg 650 mg, U nivers en 12-16 Oral, Q8H, ity of (TYLENOL) 20:00: 14:59 First dose [place] 160 mg/5 mL 00 :29 on [facility] l liquid 650 10/15/20 at [facility] mg 1400, Until Discontinu ed, Routine HYDROcodone 2019-11- No 5mg 5 mg, Univ ers -acetaminop 12-16 Oral, Q6H, i ty of hen (HYCET) 18:00: 19:51 First dose [place] 7.5-325 00 :24 (after Medical mg/15 mL last Branch solution 5 modificati mg on) on [facility] 10/15/20 at 1200, Until Discontinu ed, Routine HYDROMORPHO 2019-11- No Unive rs NE TRAVEL PROFESSIONAL 12-16 ity of 6MG/30ML 17:00: 14:57 [place] 00 :48 Medical Branch NaCl 0.9% 2019-11 Yes 10mL 10 mL, Univer s (NS) 12-16 Slow IV ity of injection 16:51: Push, PRN, [place] 10 mL 43 Starting Medical [facility] 10/15/20 at 1051, Until Discontinu ed, Routine, line maintenanc e enoxaparin 2019-11 Yes 40mg 40 mg, Unive rs (LOVENOX) 12-16 Subcutaneo ity of injection 15:00: us, Q24H, [place] 40 mg 00 First dose Medical on [facility] 10/15/20 at 0900, Until Discontinu ed, Routine sennosides 2019-11- No 8.6mg 8.6 mg, Un thor (SENOKOT) 12-16 Oral, ity of tablet 8.6 15:00: 19:51 DAILY, [place] mg 00 :23 First dose Medical on [facility] 10/15/20 at 0900, Until Discontinu ed, Routine docusate 2019-11 2020- No 100mg 100 mg, Univ ers (COLACE) 12-16 Oral, ity of capsule 100 15:00: 19:51 DAILY, [place] mg 00 :23 First dose Medical on [facility] 10/15/20 at 0900, Until Discontinu ed, Routine [...] in 05 Starting Medical NaCl 0.9% [facility] Branch (NS) 50 mL 10/14/20 IV at 2157, piggyback Until Discontinu ed, Routine, Nausea and Vomiting (N/V) HYDROMORPHO 2019-11- No Unive rs NE TRAVEL PROFESSIONAL 12-16 ity of 6MG/30ML 03:00: 16:54 [place] [...] :54 Q6HPRN, Medical 12.5 mg Starting Branch 10/14/20 at 1959, Until Wed10/14/20 at 2156, Routine, Itching naloxone 2019-11 Yes .1mg 0.1 mg, Univer s (NARCAN) 12-16 Slow IV ity of injection 01:57: Push, [place] 0.1 mg 05 SEE-INSTRU Medical CTIONS, Branch Starting 10/14/20 at 195, Until Discontinu ed, Routine acetaminoph 2019-11- No 1000mg 1,000 mg, Univers en ADULT 12-14 IV ity of (OFIRMEV) 18:00: 17:59 Infusion, [place] injection 00 :00 Administer Medi ryann 1,000 mg over 15 Branch Minutes, Q6H, 4 doses, First dose on Wed10/14/20 at 1200, Last dose on Wed10/15/20 at 0600, Routine
Indicatio n: Perioperat pasha Patient morpHINE 30 2019-11- No Unive rs mg/30 mL 12-14 ity of (fixed 17:30: 01:59 [place] dose) TRAVEL PROFESSIONAL 00 :31 Medical injection Branch lactated 2019-11- No 1000mL at 75 Unive rs ringers IV 12-14 1202 mL/hr, ity of infusion 16:45: 12:05 1,000 [...] at 0030, piggyback 50 mL NaCl 0.9% 2019-11 2020- No 1000mL at 999 Uni vers (NS) bolus 12-02-18 mL/hr, ity of infusion 05:30: 06:38 1,000 [...] Branch ease suspension opium 10 2019-11 Yes [id number] 1mL Take 1 mL Univers mg/mL 1-13 by mouth ity of (morphine) 00:00: every 6 [place] tincture 00 (six) Medical hours. Branch opium 10 2019-11 Yes [id number] 1mL Take 1 mL Univers mg/mL 1-13 by mouth ity of (morphine) 00:00: every 6 [place] tincture 00 (six) Medical hours. Branch opium 10 2019-11 Yes [id number] 1mL Take 1 mL Univers mg/mL 1-13 by mouth ity of (morphine) 00:00: every 6 [place] tincture 00 (six) Medical hours. Branch opium 10 2019-11 Yes [id number] 1mL Take 1 mL Univers mg/mL 1-13 by mouth ity of (morphine) 00:00: every 6 [place] tincture 00 (six) Medical hours. Branch opium 10 2019-11 Yes [id number] 1mL Take 1 mL Univers mg/mL 1-13 by mouth ity of (morphine) 00:00: every 6 [place] tincture 00 (six) Medical hours. Branch opium 10 2019-11 Yes [id number] 1mL Take 1 mL Univers mg/mL 1-13 by mouth ity of (morphine) 00:00: every 6 [place] tincture 00 (six) Medical hours. Branch opium 10 2019-11 Yes [id number] 1mL Take 1 mL Univers mg/mL 1-13 by mouth ity of (morphine) 00:00: every 6 [place] tincture 00 (six) Medical hours. Branch opium 10 2019-11 Yes [id number] 1mL Take 1 mL Univers mg/mL 1-13 by mouth ity of (morphine) 00:00: every 6 [place] tincture 00 (six) Medical hours. Branch opium 2019-11 Yes [id number] 1mL Take 1 mL Univers mg/mL 1-13 by mouth ity of (morphine) 00:00: every 6 [place] tincture 00 (six) Medical hours. Branch opium 2019-11 Yes [id number] 1mL Take 1 mL Univers mg/mL 1-13 by mouth ity of (morphine) 00:00: every 6 [place] tincture 00 (six) Medical hours. Branch opium 10 2019-11 Yes [id number] 1mL Take 1 mL Univers mg/mL 1-13 by mouth ity of (morphine) 00:00: every 6 [place] tincture 00 (six) Medical hours. Branch opium 2019-11 Yes [id number] 1mL Take 1 mL Univers mg/mL 1-13 by mouth ity of (morphine) 00:00: every 6 [place] tincture 00 (six) Medical hours. Branch opium 2019-11 Yes [id number] 1mL Take 1 mL Univers mg/mL 1-13 by mouth ity of (morphine) 00:00: every 6 [place] tincture 00 (six) Medical hours. Branch opium 10 2019-11 Yes [id number] 1mL Take 1 mL Univers mg/mL 1-13 by mouth ity of (morphine) 00:00: every 6 [place] tincture 00 (six) Medical hours. Branch opium 10 2019-11 Yes [id number] 1mL Take 1 mL Univers mg/mL 1-13 by mouth ity of (morphine) 00:00: every 6 [place] tincture 00 (six) Medical hours. Branch opium 10 2019-11 Yes [id number] 1mL Take 1 mL Univers mg/mL 1-13 by mouth ity of (morphine) 00:00: every 6 [place] tincture 00 (six) Medical hours. Branch opium 10 2019-11 Yes [id number] 1mL Take 1 mL Univers mg/mL 1-13 by mouth ity of (morphine) 00:00: every 6 [place] tincture 00 (six) Medical hours. Branch opium 10 2019-11 Yes [id number] 1mL Take 1 mL Univers mg/mL 1-13 by mouth ity of (morphine) 00:00: every 6 [place] tincture 00 (six) Medical hours. Branch opium 10 2019-11 Yes [id number] 1mL Take 1 mL Univers mg/mL 1-13 by mouth ity of (morphine) 00:00: every 6 [place] tincture 00 (six) Medical hours. Branch opium 10 2019-11 Yes [id number] 1mL Take 1 mL Univers mg/mL 1-13 by mouth ity of (morphine) 00:00: every 6 [place] tincture 00 (six) Medical hours. Branch opium 10 2019-11 Yes [id number] 1mL Take 1 mL Univers mg/mL 1-13 by mouth ity of (morphine) 00:00: every 6 [place] tincture 00 (six) Medical hours. Branch opium 2019-11 Yes [id number] 1mL Take 1 mL Univers mg/mL 1-13 by mouth ity of (morphine) 00:00: every 6 [place] tincture 00 (six) Medical hours. Branch opium 10 2019-11 Yes [id number] 1mL Take 1 mL Univers mg/mL 1-13 by mouth ity of (morphine) 00:00: every 6 [place] tincture 00 (six) Medical hours. Branch opium 10 2019-11 Yes [id number] 1mL Take 1 mL Univers mg/mL 1-13 by mouth ity of (morphine) 00:00: every 6 [place] tincture 00 (six) Medical hours. Branch opium 10 2019-11 Yes [id number] 1mL Take 1 mL Univers mg/mL 1-13 by mouth ity of (morphine) 00:00: every 6 [place] tincture 00 (six) Medical hours. Branch opium 10 2019-11 Yes [id number] 1mL Take 1 mL Univers mg/mL 1-13 by mouth ity of (morphine) 00:00: every 6 [place] tincture 00 (six) Medical hours. Branch psyllium 2019-11 No [id number] 1{packe Take 1 Univers 3.4 gram 1-13 12-14 t} Packet by ity o f packet 00:00: 05:59 mouth 3 [place] 00 :00 ([facility]) Medical times Branch daily before meals for 30 days. psyllium 2019-11- No [id number] 1{packe Take 1 Univers 3.4 gram 1-13 12-14 t} Packet by ity o f packet 00:00: 05:59 mouth 3 [place] 00 :00 ([facility]) Medical times Branch daily before meals for 30 days. psyllium 2019-11- No [id number] 1{packe Take 1 Univers 3.4 gram 1-13 12-14 t} Packet by ity o f packet 00:00: 05:59 mouth 3 [place] 00 :00 ([facility]) Medical times Branch daily before meals for 30 days. psyllium 2019-11- No [id number] 1{packe Take 1 Univers 3.4 gram 1-13 12-14 t} Packet by ity o f packet 00:00: 05:59 mouth 3 [place] 00 :00 ([facility]) Medical times Branch daily before meals for 30 days. psyllium 2019-11- No [id number] 1{packe Take 1 Univers 3.4 gram 1-13 12-14 t} Packet by ity o f packet 00:00: 05:59 mouth 3 [place] 00 :00 ([facility]) Medical times Branch daily before meals for 30 days. psyllium 2019-11- No [id number] 1{packe Take 1 Univers 3.4 gram 1-13 12-14 t} Packet by ity o f packet 00:00: 05:59 mouth 3 [place] 00 :00 ([facility]) Medical times Branch daily before meals for 30 days. psyllium 2019-11- No [id number] 1{packe Take 1 Univers 3.4 gram 1-13 12-14 t} Packet by ity o f packet 00:00: 05:59 mouth 3 [place] 00 :00 ([facility]) Medical times Branch daily before meals for 30 days. psyllium 2019-11- No [id number] 1{packe Take 1 Univers 3.4 gram 1-13 12-14 t} Packet by ity o f packet 00:00: 05:59 mouth 3 [place] 00 :00 (three) Medical times Branch daily before meals for 30 days. psyllium 2019-11 2020- No [id number] 1{packe Take 1 Univers 3.4 gram 1-13 12-14 t} Packet by ity o f packet 00:00: 05:59 mouth 3 [place] 00 :00 (three) Medical times Branch daily before meals for 30 days. psyllium 2019-11 2020- No [id number] 1{packe Take 1 Univers 3.4 gram 1-13 12-14 t} Packet by ity o f packet 00:00: 05:59 mouth 3 [place] 00 :00 (three) Medical times Branch daily before meals for 30 days. psyllium 2019-11 2020- No [id number] 1{packe Take 1 Univers 3.4 gram 1-13 12-14 t} Packet by ity o f packet 00:00: 05:59 mouth 3 [place] 00 :00 (three) Medical times Branch daily before meals for 30 days. psyllium 2019-11 2020- No [id number] 1{packe Take 1 Univers 3.4 gram 1-13 12-14 t} Packet by ity o f packet 00:00: 05:59 mouth 3 [place] 00 :00 (three) Medical times Branch daily before meals for 30 days. psyllium 2019-11 2020- No [id number] 1{packe Take 1 Univers 3.4 gram 1-13 12-14 t} Packet by ity o f packet 00:00: 05:59 mouth 3 [place] 00 :00 (three) Medical times Branch daily before meals for 30 days. psyllium 2019-11 2020- No [id number] 1{packe Take 1 Univers 3.4 gram 1-13 12-14 t} Packet by ity o f packet 00:00: 05:59 mouth 3 [place] 00 :00 (three) Medical times Branch daily before meals for 30 days. psyllium 2019-11 2020- No [id number] 1{packe Take 1 Univers 3.4 gram 1-13 12-10 t} Packet by ity o f packet 00:00: 00:00 mouth 3 [place] 00 :00 (three) Medical times Branch daily before meals for 30 days. dextroamphe 2019- 2020- No 30mg Take 30 mg Univers tamine-amph 11-18 by mouth 2 i ty of etamine [...] No .5mg 0.5 mg, Un thor ne -04 Slow IV ity of (DILAUDID) 01:15: 00:26 [...] s: acute pain proMETHazin 2019-11 2020- No [id number] 25mg Take 1 Univers e 25 mg 1-04 11-25 tablet by ity of tablet 00:00: 05:59 mouth [place] 00 :00 every 6 Medical (six) Branch hours as needed for Nausea and Vomiting (N/V) for up to 20 days. proMETHazin 2019-11 2020- No [id number] 25mg Take 1 Univers e 25 mg 1-04 11-25 tablet by ity of tablet 00:00: 05:59 mouth [place] 00 :00 every 6 Medical (six) Branch hours as needed for Nausea and Vomiting (N/V) for up to 20 days. proMETHazin 2019-11 2020- No [id number] 25mg Take 1 Univers e 25 mg 1-04 11-25 tablet by ity of tablet 00:00: 05:59 mouth [place] 00 :00 every 6 Medical (six) Branch hours as needed for Nausea and Vomiting (N/V) for up to 20 days. proMETHazin 2019-11- No [id number] 25mg Take 1 Univers e 25 mg 1-04 11-25 tablet by ity of tablet 00:00: 05:59 mouth [place] 00 :00 every 6 Medical (six) Branch hours as needed for Nausea and Vomiting (N/V) for up to 20 days. proMETHazin 2019-11- No [id number] 25mg Take 1 Univers e 25 mg 1-04 11-25 tablet by ity of tablet 00:00: 05:59 mouth [place] 00 :00 every 6 Medical (six) Branch hours as needed for Nausea and Vomiting (N/V) for up to 20 days. proMETHazin 2019-11- No [id number] 25mg Take 1 Univers e 25 mg 1-04 11-25 tablet by ity of tablet 00:00: 05:59 mouth [place] 00 :00 every 6 Medical (six) Branch hours as needed for Nausea and Vomiting (N/V) for up to 20 days. proMETHazin 2019-11- No [id number] 25mg Take 1 Univers e 25 mg 1-04 11-25 tablet by ity of tablet 00:00: 05:59 mouth [place] 00 :00 every 6 Medical (six) Branch hours as needed for Nausea and Vomiting (N/V) for up to 20 days. proMETHazin 2019-11- No [id number] 25mg Take 1 Univers e 25 mg 1-04 11-25 tablet by ity of tablet 00:00: 05:59 mouth [place] 00 :00 every 6 Medical (six) Branch hours as needed for Nausea and Vomiting (N/V) for up to 20 days. proMETHazin 2019-11- No [id number] 25mg Take 1 Univers e 25 mg 1-04 11-25 tablet by ity of tablet 00:00: 05:59 mouth [place] 00 :00 every 6 Medical (six) Branch hours as needed for Nausea and Vomiting (N/V) for up to 20 days. proMETHazin 2019-11- No [id number] 25mg Take 1 Univers e 25 mg 1-04 11-25 tablet by ity of tablet 00:00: 05:59 mouth [place] 00 :00 every 6 Medical (six) Branch hours as needed for Nausea and Vomiting (N/V) for up to 20 days. proMETHazin 2020- 2020- No [id number] 25mg Take 1 Univers e 25 mg 1-04 11-25 tablet by ity of tablet 00:00: 05:59 mouth [place] 00 :00 every 6 Medical (six) Branch hours as needed for Nausea and Vomiting (N/V) for up to 20 days. proMETHazin 2020- 2020- No [id number] 25mg Take 1 Univers e 25 mg 1-04 11-25 tablet by ity of tablet 00:00: 05:59 mouth [place] 00 :00 every 6 Medical (six) Branch hours as needed for Nausea and Vomiting (N/V) for up to 20 days. proMETHazin 2019- 2020- No [id number] 25mg Take 1 Univers e 25 mg 1-04 11-25 tablet by ity of tablet 00:00: 05:59 mouth [place] 00 :00 every 6 Medical (six) Branch hours as needed for Nausea and Vomiting (N/V) for up to 20 days. proMETHazin 2019- 2020- No [id number] 25mg Take 1 Univers e 25 mg 1-04 11-25 tablet by ity of tablet 00:00: 05:59 mouth [place] 00 :00 every 6 Medical (six) Branch hours as needed for Nausea and Vomiting (N/V) for up to 20 days. HYDROmorphO 2020- 2020- No 1mg 1 mg, Slow Univers ne 11-17 IV Push, ity of (DILAUDID) 16:15: 15:22 ONCE, 1 [place] injection 1 00 :00 dose, Tue Med ical mg 09/17/20 at Branch 1015, Routine
Use approved by (Faculty): ADC PROVIDER HYDROmorpho 2020- 2020- No 1mg 1 mg, Slow Univers ne 11-17 IV Push, ity of (DILAUDID) 07:30: 06:44 ONCE, 1 [place] injection 1 00 :00 dose, Tue Med ical mg 09/17/20 at Branch 0130, Routine
Use approved by (Faculty): ADC PROVIDER HYDROmorpho 2020-1 2020- No .5mg 0.5 mg, Un thor [...] in 00 Starting Medical NaCl 0.9% [facility] Branch (NS) 50 mL 09/16/20 at IV 1230, piggyback Until Discontinu ed, Routine, Nausea and Vomiting (N/V) HYDROmorpho 2019-11 2020- No .5mg 0.5 mg, Un thor ne 11-15 Slow IV ity of (DILAUDID) 20:03: 16:40 Push, [place] injection 04 :53 Q6HPRN, Medical 0.5 mg Starting Branch 09/15/20 at 1403, Until [facility] 09/16/20 at 1040, Routine, Pain (scale 7-10)
[...] BID, ity of FIBER 19:15: First dose [place] SINGLES) 00 on Sat Medical 3.4 gram 09/14/20 Branch packet 1 at 1415, Packet Until Discontinu ed, Routine lactobacill 2019-11 Yes 1{tbl} 1 tablet, Univers us 0-31 Oral, TID, ity of acidophilus 19:15: First dose [place] (ACIDOPHILL 00 on Sat Medica l US) [...] 2020- No 1{tbl} 1 tablet, Univers -acetaminop 009-15 Oral, ity of hen (NORCO) 14:35: 07:40 [...] Yes 40mg 40 mg, Univ ers e 0 Oral, ity of (PROTONIX) 14:00: DAILY, [place] [...] heparin 2019-11 Yes 5000U 5,000 Univers (porcine) 031 Units, ity of injection 03:00: Subcutaneo [place] 5,000 Units 00 us, Q8H, Medi ryann First dose Branch (after last modificati on) on Wed09/13/20 at 2200, Until Discontinu ed, Routine proMETHazin 2019-11- No 12.5mg 12.5 mg, Univers e 02 IV ity of (PHENERGAN) 01:23: 18:35 Piggyback, [place] 12.5 mg in 35 :16 Q4HPRN, Medica l NaCl 0.9% Starting Branch (NS) 50 mL Wed IV 09/13/20 piggyback at 2023, Until 09/16/20 at 1235, Routine, Nausea and Vomiting (N/V) metoprolol 2019-11- No 25mg 25 mg, Univ ers tartrate 1103 Oral, BID, ity of (LOPRESSOR) 01:00: 23:43 First dose [place] tablet 25 00 :41 on Fri Medical mg 09/13/20 Branch at 2000, Until Discontinu ed, Routine acetaminoph 2019-11 Yes 650mg 650 mg, Un thor en 0-30 Oral, Q6H, ity of (TYLENOL) 23:00: First dose [place] tablet 650 00 on Wed Medical mg 09/13/20 Branch at 1800, Until Discontinu ed, Routine proMETHazin 2019-11- No 12.5mg 12.5 mg, Univers e 09-14 Oral, ity of (PHENERGAN) 21:52: 01:23 [...] at 2249, Routine, Pain (scale 7-10) ALPRAZolam 2019-11 Yes 2mg Take 2 mg [...] Until 09/14/20 at 0927, Routine, Itching acetaminoph 2019- Yes 650mg 650 mg, Un thor en 0-30 Oral, ity of (TYLENOL) 20:56: Q6HPRN, [place] tablet 650 54 Starting Medic al mg Fri Branch 10/30/20 at 1556, Until Discontinu ed, Routine, Pain (scale 1-3) NaCl 0.9% 2019-11 2020- No 1000mL at 125 Uni vers (NS) IV 0-30 11-02 mL/hr, IV ity of infusion 20:15: 16:42 Infusion, [place] 1,000 mL 00 :06 CONTINUOUS Medic al , Starting Branch 09/13/20 at 1515, Until 09/16/20 at 1042, Routine [...] IV ity of (PF)) 19:15: 18:11 Push, [place] injection 00 :00 ONCE, 1 Medical 20 mg dose, Fri Branch 09/13/20 at 1415, LUISA methylpredn 2019-11 2020- No 125mg 125 mg, IV Univers isolone sod 0-30 10-30 Piggyback, i ty of succ 19:15: 18:06 ONCE, 1 [place] (SOLU-MEDRO 00 :00 dose, Wed Med ical [...] 2 it y of etamine 01:28: (two) [place] (ADDERALL) 56 times Medical 30 mg daily. [...] 09:55 ONCE, 1 [place] 00 :00 dose, [facility] 09/01/20 Branch at 0600, STAT iohexol [...] IV Medical Infusion, Branch ONCE, 1 dose, [place] 09/01/20 at 0300, STAT diphenhydrA 2019-11- No [...] 07:22 ONCE, 1 [place] 00 :00 dose, [facility] 09/01/20 Branch at 0300, STAT iohexol 2019-11- No 60mL 60 mL, Univers (OMNIPAQUE 0-10 10-10 Intravenou it y of 350 BULK-75 01:45: 01:45 s, ONCE, 1 [place] mL) 00 :00 dose, Fri Medical injection 08/23/20 at Bran ch 60 mL 2045, Routine diphenhydrA 2019-11- No 12.5mg 12.5 mg, Univers MINE 0-10 10-09 Slow IV ity of (BENADRYL) 00:00: 23:44 Push, [place] injection 00 :00 ONCE, 1 Medical 12.5 mg dose, [facility] 08/23/20 at 1900, STAT morpHINE 2019-11- No 4mg 4 mg, Slow Un thor injection 4 0-10 10-09 IV Push, ity of mg 00:00: 23:43 ONCE, 1 [place] 00 :00 dose, [facility] 08/23/20 at Branch 1900, STAT NaCl 0.9% 2019-11- No 1000mL at 999 Uni vers (NS) bolus 0-09 10-10 mL/hr, ity of infusion 23:45: 00:00 1,000 mL, [place] 1,000 mL 00 :00 IV Medical Infusion, [place] ONCE, 1 dose, [facility] 08/23/20 at 1845, STAT ALPRAZolam 2019-11 Yes 2mg Take 2 mg Un thor (XANAX) 2 0-06 by mouth 2 ity of mg tablet 16:20: (two) [place] 37 times Medical daily. Branch dextroamphe 2019-11 Yes 30mg Take 30 mg Univers tamine-amph 0-06 by mouth 2 it y of etamine 16:20: (two) [place] (ADDERALL) 37 times Medical 30 mg daily. [...] Sat Medica l NaCl 0.9% 08/17/20 at [facility] (NS) 50 mL 2315, 50 piggyback mL morpHINE 2019-11- No 4mg 4 mg, Slow Un thor injection 4 0-04 10-04 IV Push, ity of mg 04:15: 03:25 ONCE, 1 [place] 00 :00 dose, Sat Medical 08/17/20 at [place] 2315, STAT NaCl 0.9% 2019-11 2020- No [...] Sat Medica l NaCl 0.9% 08/17/20 at [facility] (NS) 50 mL 2114, 50 piggyback mL morpHINE 2019-11- No 4mg 4 mg, Slow Un thor injection 4 008-18 IV Push, ity of mg 02:15: 01:24 ONCE, 1 [place] 00 :00 dose, Sat Medical 08/17/20 at Branch 2115, STAT diphenhydrA 2019-11- No 25mg 25 mg, Uni vers MINE 0-08-18 Slow IV ity of (BENADRYL) 02:15: 01:24 Push, [place] injection 00 :00 ONCE, 1 Medical 25 mg dose, Sat Branch 08/17/20 at 2115, STAT proMETHazin 2019-11 Yes [id number] 25mg Take 1 Univers e 25 mg 0-03 tablet by ity of tablet 00:00: mouth [place] 00 every 6 Medical (six) Branch hours as needed for Nausea and Vomiting (N/V). proMETHazin 2019-11 Yes [id number] 25mg Take 1 Univers e 25 mg 0-03 tablet by ity of tablet 00:00: mouth [place] 00 every 6 Medical (six) Branch hours as needed for Nausea and Vomiting (N/V). proMETHazin 2020-1 Yes [id number] 25mg Take 1 [facility] e 25 mg 0-03 tablet by ity of tablet 00:00: mouth [place] 00 every 6 Medical (six) Branch hours as needed for Nausea and Vomiting (N/V). proMETHazin 2020- Yes [id number] 25mg Take 1 [facility] e 25 mg 0-03 tablet by ity of tablet 00:00: mouth [place] 00 every 6 Medical (six) Branch hours as needed for Nausea and Vomiting (N/V). proMETHazin 2019- Yes [id number] 25mg Take 1 Univers e 25 mg 0-03 tablet by ity of tablet 00:00: mouth [place] 00 every 6 Medical (six) Branch hours as needed for Nausea and Vomiting (N/V). proMETHazin 2019-1 Yes [id number] 25mg Take 1 [facility] e 25 mg 0-03 tablet by ity of tablet 00:00: mouth [place] 00 every 6 Medical (six) Branch hours as needed for Nausea and Vomiting (N/V). proMETHazin 2019- Yes [id number] 25mg Take 1 [facility] e 25 mg 0-03 tablet by ity of tablet 00:00: mouth [place] 00 every 6 Medical (six) Branch hours as needed for Nausea and Vomiting (N/V). proMETHazin 2019-1 Yes [id number] 25mg Take 1 [facility] e 25 mg 0-03 tablet by ity of tablet 00:00: mouth [place] 00 every 6 Medical (six) Branch hours as needed for Nausea and Vomiting (N/V). proMETHazin 2020-1 Yes [id number] 25mg Take 1 [facility] e 25 mg 0-03 tablet by ity of tablet 00:00: mouth [place] 00 every 6 Medical (six) Branch hours as needed for Nausea and Vomiting (N/V). proMETHazin 2020-1 Yes [id number] 25mg Take 1 [facility] e 25 mg 0-03 tablet by ity of tablet 00:00: mouth [place] 00 every 6 Medical (six) Branch hours as needed for Nausea and Vomiting (N/V). proMETHazin 2020-1 Yes [id number] 25mg Take 1 [facility] e 25 mg 0-03 tablet by ity of tablet 00:00: mouth [place] 00 every 6 Medical (six) Branch hours as needed for Nausea and Vomiting (N/V). proMETHazin 2019- Yes [id number] 25mg Take 1 [facility] e 25 mg 0-03 tablet by ity of tablet 00:00: mouth [place] 00 every 6 Medical (six) Branch hours as needed for Nausea and Vomiting (N/V). proMETHazin 2019-1 Yes [id number] 25mg Take 1 [facility] e 25 mg 0-03 tablet by ity of tablet 00:00: mouth [place] 00 every 6 Medical (six) Branch hours as needed for Nausea and Vomiting (N/V). proMETHazin 2019- Yes [id number] 25mg Take 1 [facility] e 25 mg 0-03 tablet by ity of tablet 00:00: mouth [place] 00 every 6 Medical (six) Branch hours as needed for Nausea and Vomiting (N/V). proMETHazin 2019- Yes [id number] 25mg Take 1 [facility] e 25 mg 0-03 tablet by ity of tablet 00:00: mouth [place] 00 every 6 Medical (six) Branch hours as needed for Nausea and Vomiting (N/V). proMETHazin 2019- Yes [id number] 25mg Take 1 [facility] e 25 mg 0-03 tablet by ity of tablet 00:00: mouth [place] 00 every 6 Medical (six) Branch hours as needed for Nausea and Vomiting (N/V). proMETHazin 2019- Yes [id number] 25mg Take 1 [facility] e 25 mg 0-03 tablet by ity of tablet 00:00: mouth [place] 00 every 6 Medical (six) Branch hours as needed for Nausea and Vomiting (N/V). proMETHazin 2019- Yes [id number] 25mg Take 1 [facility] e 25 mg 0-03 tablet by ity of tablet 00:00: mouth [place] 00 every 6 Medical (six) Branch hours as needed for Nausea and Vomiting (N/V). proMETHazin 2019-1 Yes [id number] 25mg Take 1 [facility] e 25 mg 0-03 tablet by ity of tablet 00:00: mouth [place] 00 every 6 Medical (six) Branch hours as needed for Nausea and Vomiting (N/V). proMETHazin 2019-11 2020- No [id number] 25mg Take 1 Univers e 25 mg [...] s tablet 2 mg 00 Starting Medi [facility] Branch 08/01/20 at 0700, Until Discontinu ed, Routine, Pain (scale 7-10) ibuprofen 2020-0 Yes [id number] 600mg Take 1 Univers 600 mg 9-17 tablet by ity of tablet 00:00: mouth [place] 00 every 6 Medical (six) Branch hours. loperamide 2020-0 Yes [id number] 2mg Take 1 [facility] 2 mg 9-17 capsule by ity of capsule 00:00: mouth [place] 00 daily. Medical Branch methocarbam 2020-0 Yes [id number] 500mg Take 1 Univers oL 500 mg 9-17 tablet by ity o f tablet 00:00: mouth 4 [place] 00 (four) Medical times Branch daily. ibuprofen 2020-0 Yes [id number] 600mg Take 1 [facility] 600 mg 9-17 tablet by ity of tablet 00:00: mouth [place] 00 every 6 Medical (six) Branch hours. loperamide 2020-0 Yes [id number] 2mg Take 1 [facility] 2 mg 9-17 capsule by ity of capsule 00:00: mouth [place] 00 daily. Medical Branch methocarbam 2020-0 Yes [id number] 500mg Take 1 [facility] oL 500 mg 9-17 tablet by ity o f tablet 00:00: mouth 4 [place] 00 (four) Medical times Branch daily. ibuprofen 2020-0 Yes [id number] 600mg Take 1 [facility] 600 mg 9-17 tablet by ity of tablet 00:00: mouth [place] 00 every 6 Medical (six) Branch hours. loperamide 2020-0 Yes [id number] 2mg Take 1 [facility] 2 mg 9-17 capsule by ity of capsule 00:00: mouth [place] 00 daily. Medical Branch methocarbam 2020-0 Yes [id number] 500mg Take 1 [facility] oL 500 mg 9-17 tablet by ity o f tablet 00:00: mouth 4 [place] 00 (four) Medical times Branch daily. ibuprofen 2020-0 Yes [id number] 600mg Take 1 [facility] 600 mg 9-17 tablet by ity of tablet 00:00: mouth [place] 00 every 6 Medical (six) Branch hours. loperamide 2020-0 Yes [id number] 2mg Take 1 [facility] 2 mg 9-17 capsule by ity of capsule 00:00: mouth [place] 00 daily. Medical Branch methocarbam 2020-0 Yes [id number] 500mg Take 1 [facility] oL 500 mg 9-17 tablet by ity o f tablet 00:00: mouth 4 00 (four) Medical times Branch daily. ibuprofen 2020-0 Yes [id number] 600mg Take 1 [facility] 600 mg 9-17 tablet by ity of tablet 00:00: mouth [place] 00 every 6 Medical (six) Branch hours. loperamide 2020-0 Yes [id number] 2mg Take 1 [facility] 2 mg 9-17 capsule by ity of capsule 00:00: mouth [place] 00 daily. Medical Branch methocarbam 2020-0 Yes [id number] 500mg Take 1 [facility] oL 500 mg 9-17 tablet by ity o f tablet 00:00: mouth 00 (four) Medical times Branch daily. ibuprofen 2020-0 Yes [id number] 600mg Take 1 [facility] 600 mg 9-17 tablet by ity of tablet 00:00: mouth [place] 00 every 6 Medical (six) Branch hours. loperamide 2020-0 Yes [id number] 2mg Take 1 [facility] 2 mg 9-17 capsule by ity of capsule 00:00: mouth [place] 00 daily. Medical Branch methocarbam 2020-0 Yes [id number] 500mg Take 1 [facility] oL 500 mg 9-17 tablet by ity o f tablet 00:00: mouth 00 (four) Medical times Branch daily. ibuprofen 2020-0 Yes [id number] 600mg Take 1 [facility] 600 mg 9-17 tablet by ity of tablet 00:00: mouth [place] 00 every 6 Medical (six) Branch hours. loperamide 2020-0 Yes [id number] 2mg Take 1 [facility] 2 mg 9-17 capsule by ity of capsule 00:00: mouth [place] 00 daily. Medical Branch methocarbam 2020-0 Yes [id number] 500mg Take 1 [facility] oL 500 mg 9-17 tablet by ity o f tablet 00:00: mouth 00 (four) Medical times Branch daily. ibuprofen 2020-0 Yes [id number] 600mg Take 1 [facility] 600 mg 9-17 tablet by ity of tablet 00:00: mouth [place] 00 every 6 Medical (six) Branch hours. loperamide 2020-0 Yes [id number] 2mg Take 1 [facility] 2 mg 9-17 capsule by ity of capsule 00:00: mouth [place] 00 daily. Medical Branch methocarbam 2020-0 Yes [id number] 500mg Take 1 [facility] oL 500 mg 9-17 tablet by ity o f tablet 00:00: mouth 4 00 (four) Medical times Branch daily. ibuprofen 2020-0 Yes [id number] 600mg Take 1 [facility] 600 mg 9-17 tablet by ity of tablet 00:00: mouth [place] 00 every 6 Medical (six) Branch hours. loperamide 2020-0 Yes [id number] 2mg Take 1 Univers 2 mg 9-17 capsule by ity of capsule 00:00: mouth [place] 00 daily. Medical Branch methocarbam 2020-0 Yes [id number] 500mg Take 1 Univers oL 500 mg 9-17 tablet by ity o f tablet 00:00: mouth (four) Medical times Branch daily. ibuprofen 2020-0 Yes [id number] 600mg Take 1 [facility] 600 mg 9-17 tablet by ity of tablet 00:00: mouth [place] 00 every 6 Medical (six) Branch hours. loperamide 2020-0 Yes [id number] 2mg Take 1 [facility] 2 mg 9-17 capsule by ity of capsule 00:00: mouth [place] 00 daily. Medical Branch methocarbam 2020-0 Yes [id number] 500mg Take 1 Univers oL 500 mg 9-17 tablet by ity o f tablet 00:00: mouth (four) Medical times Branch daily. ibuprofen 2020-0 Yes [id number] 600mg Take 1 [facility] 600 mg 9-17 tablet by ity of tablet 00:00: mouth [place] 00 every 6 Medical (six) Branch hours. loperamide 2020-0 Yes [id number] 2mg Take 1 [facility] 2 mg 9-17 capsule by ity of capsule 00:00: mouth [place] 00 daily. Medical Branch methocarbam 2020-0 Yes [id number] 500mg Take 1 [facility] oL 500 mg 9-17 tablet by ity o f tablet 00:00: mouth (four) Medical times Branch daily. ibuprofen 2020-0 Yes [id number] 600mg Take 1 [facility] 600 mg 9-17 tablet by ity of tablet 00:00: mouth [place] 00 every 6 Medical (six) Branch hours. loperamide 2020-0 Yes [id number] 2mg Take 1 [facility] 2 mg 9-17 capsule by ity of capsule 00:00: mouth [place] 00 daily. Medical Branch methocarbam 2020-0 Yes [id number] 500mg Take 1 [facility] oL 500 mg 9-17 tablet by ity o f tablet 00:00: mouth (four) Medical times Branch daily. ibuprofen 2020-0 Yes [id number] 600mg Take 1 [facility] 600 mg 9-17 tablet by ity of tablet 00:00: mouth 00 every 6 Medical (six) Branch hours. loperamide 2020-0 Yes [id number] 2mg Take 1 Univers 2 mg 9-17 capsule by ity of capsule 00:00: mouth 00 daily. Medical Branch methocarbam 2020-0 Yes [id number] 500mg Take 1 [facility] oL 500 mg 9-17 tablet by ity o f tablet 00:00: mouth (four) Medical times Branch daily. ibuprofen 2020-0 Yes [id number] 600mg Take 1 [facility] 600 mg 9-17 tablet by ity of tablet 00:00: mouth 00 every 6 Medical (six) Branch hours. loperamide 2020-0 Yes [id number] 2mg Take 1 [facility] 2 mg 9-17 capsule by ity of capsule 00:00: mouth 00 daily. Medical Branch methocarbam 2020-0 Yes [id number] 500mg Take 1 [facility] oL 500 mg 9-17 tablet by ity o f tablet 00:00: mouth (four) Medical times Branch daily. ibuprofen 2020-0 Yes [id number] 600mg Take 1 [facility] 600 mg 9-17 tablet by ity of tablet 00:00: mouth 00 every 6 Medical (six) Branch hours. loperamide 2020-0 Yes [id number] 2mg Take 1 [facility] 2 mg 9-17 capsule by ity of capsule 00:00: mouth daily. Medical Branch methocarbam 2020-0 Yes [id number] 500mg Take 1 [facility] oL 500 mg 9-17 tablet by ity o f tablet 00:00: mouth (four) Medical times Branch daily. ibuprofen 2020-0 Yes [id number] 600mg Take 1 [facility] 600 mg 9-17 tablet by ity of tablet 00:00: mouth 00 every 6 Medical (six) Branch hours. loperamide 2020-0 Yes [id number] 2mg Take 1 [facility] 2 mg 9-17 capsule by ity of capsule 00:00: mouth 00 daily. Medical Branch methocarbam 2020-0 Yes [id number] 500mg Take 1 [facility] oL 500 mg 9-17 tablet by ity o f tablet 00:00: mouth (four) Medical times Branch daily. ibuprofen 2020-0 Yes [id number] 600mg Take 1 [facility] 600 mg 9-17 tablet by ity of tablet 00:00: mouth [place] 00 every 6 Medical (six) Branch hours. loperamide 2020-0 Yes [id number] 2mg Take 1 [facility] 2 mg 9-17 capsule by ity of capsule 00:00: mouth [place] 00 daily. Medical Branch methocarbam 2020-0 Yes [id number] 500mg Take 1 Univers oL 500 mg 9-17 tablet by ity o f tablet 00:00: mouth (four) Medical times Branch daily. ibuprofen 2020-0 Yes [id number] 600mg Take 1 [facility] 600 mg 9-17 tablet by ity of tablet 00:00: mouth [place] 00 every 6 Medical (six) Branch hours. loperamide 2020-0 Yes [id number] 2mg Take 1 Univers 2 mg 9-17 capsule by ity of capsule 00:00: mouth 00 daily. Medical Branch methocarbam 2020-0 Yes [id number] 500mg Take 1 Univers oL 500 mg 9-17 tablet by ity o f tablet 00:00: mouth (four) Medical times Branch daily. ibuprofen 2020-0 Yes [id number] 600mg Take 1 [facility] 600 mg 9-17 tablet by ity of tablet 00:00: mouth [place] 00 every 6 Medical (six) Branch hours. loperamide 2020-0 Yes [id number] 2mg Take 1 [facility] 2 mg 9-17 capsule by ity of capsule 00:00: mouth 00 daily. Medical Branch methocarbam 2020-0 Yes [id number] 500mg Take 1 Univers oL 500 mg 9-17 tablet by ity o f tablet 00:00: mouth (four) Medical times Branch daily. ibuprofen 2020-0 Yes [id number] 600mg Take 1 [facility] 600 mg 9-17 tablet by ity of tablet 00:00: mouth [place] 00 every 6 Medical (six) Branch hours. loperamide 2020-0 Yes [id number] 2mg Take 1 [facility] 2 mg 9-17 capsule by ity of capsule 00:00: mouth [place] 00 daily. Medical Branch methocarbam 2020-0 Yes [id number] 500mg Take 1 [facility] oL 500 mg 9-17 tablet by ity o f tablet 00:00: mouth (four) Medical times Branch daily. ibuprofen 2020-0 Yes [id number] 600mg Take 1 [facility] 600 mg 9-17 tablet by ity of tablet 00:00: mouth [place] 00 every 6 Medical (six) Branch hours. loperamide 2020-0 Yes [id number] 2mg Take 1 [facility] 2 mg 9-17 capsule by ity of capsule 00:00: mouth 00 daily. Medical Branch methocarbam 2020-0 Yes [id number] 500mg Take 1 [facility] oL 500 mg 9-17 tablet by ity o f tablet 00:00: mouth (four) Medical times Branch daily. ibuprofen 2020-0 Yes [id number] 600mg Take 1 [facility] 600 mg 9-17 tablet by ity of tablet 00:00: mouth [place] 00 every 6 Medical (six) Branch hours. loperamide 2020-0 Yes [id number] 2mg Take 1 [facility] 2 mg 9-17 capsule by ity of capsule 00:00: mouth 00 daily. Medical Branch methocarbam 2020-0 Yes [id number] 500mg Take 1 [facility] oL 500 mg 9-17 tablet by ity o f tablet 00:00: mouth (four) Medical times Branch daily. ibuprofen 2020-0 Yes [id number] 600mg Take 1 [facility] 600 mg 9-17 tablet by ity of tablet 00:00: mouth [place] 00 every 6 Medical (six) Branch hours. loperamide 2020-0 Yes [id number] 2mg Take 1 [facility] 2 mg 9-17 capsule by ity of capsule 00:00: mouth [place] 00 daily. Medical Branch methocarbam 2020-0 Yes [id number] 500mg Take 1 [facility] oL 500 mg 9-17 tablet by ity o f tablet 00:00: mouth (four) Medical times Branch daily. ibuprofen 2020-0 Yes [id number] 600mg Take 1 [facility] 600 mg 9-17 tablet by ity of tablet 00:00: mouth [place] 00 every 6 Medical (six) Branch hours. loperamide 2020-0 Yes [id number] 2mg Take 1 [facility] 2 mg 9-17 capsule by ity of capsule 00:00: mouth [place] 00 daily. Medical Branch methocarbam 2020-0 Yes [id number] 500mg Take 1 [facility] oL 500 mg 9-17 tablet by ity o f tablet 00:00: mouth (four) Medical times Branch daily. ibuprofen 2020-0 Yes [id number] 600mg Take 1 [facility] 600 mg 9-17 tablet by ity of tablet 00:00: mouth [place] 00 every 6 Medical (six) Branch hours. loperamide 2020-0 Yes [id number] 2mg Take 1 [facility] 2 mg 9-17 capsule by ity of capsule 00:00: mouth [place] 00 daily. Medical Branch methocarbam 2020-0 Yes [id number] 500mg Take 1 [facility] oL 500 mg 9-17 tablet by ity o f tablet 00:00: mouth 4 00 (four) Medical times Branch daily. ibuprofen 2020-0 Yes [id number] 600mg Take 1 [facility] 600 mg 9-17 tablet by ity of tablet 00:00: mouth [place] 00 every 6 Medical (six) Branch hours. methocarbam 2020-0 Yes [id number] 500mg Take 1 [facility] oL 500 mg 9-17 tablet by ity o f tablet 00:00: mouth 4 [place] (four) Medical times Branch daily. ibuprofen 2020-0 Yes [id number] 600mg Take 1 [facility] 600 mg 9-17 tablet by ity of tablet 00:00: mouth [place] 00 every 6 Medical (six) Branch hours. methocarbam 2020-0 Yes [id number] 500mg Take 1 [facility] oL 500 mg 9-17 tablet by ity o f tablet 00:00: mouth [address] [place] [address] 00 (four) Medical times Branch daily. ibuprofen 2020-0 Yes [id number] 600mg Take 1 [facility] 600 mg 9-17 tablet by ity of tablet 00:00: mouth [place] 00 every 6 Medical (six) Branch hours. methocarbam 2020-0 Yes [id number] 500mg Take 1 [facility] oL 500 mg 9-17 tablet by ity o f tablet 00:00: mouth [address] [place] [address] (four) Medical times Branch daily. ibuprofen 2020-0 Yes [id number] 600mg Take 1 [facility] 600 mg 9-17 tablet by ity of tablet 00:00: mouth [place] 00 every 6 Medical (six) Branch hours. methocarbam 2020-0 Yes [id number] 500mg Take 1 [facility] oL 500 mg 9-17 tablet by ity o f tablet 00:00: mouth 4 (four) Medical times Branch daily. acetaminoph 2020-0 2021- No [id number] 650mg Take 2 Univers en 325 mg 9-17 09-18 tablets by ity of tablet 00:00: 04:59 mouth [place] 00 :00 every 6 Medical (six) Branch hours. acetaminoph 2020- No [id number] 650mg Take 2 Univers en 325 mg 9-17 09-18 tablets by ity of tablet 00:00: 04:59 mouth [place] 00 :00 every 6 Medical (six) Branch hours. acetaminoph 2020- No [id number] 650mg Take 2 Univers en 325 mg 9-17 09-18 tablets by ity of tablet 00:00: 04:59 mouth [place] 00 :00 every 6 Medical (six) Branch hours. acetaminoph 2020- No [id number] 650mg Take 2 [facility] en 325 mg 9-17 09-18 tablets by ity of tablet 00:00: 04:59 mouth [place] 00 :00 every 6 Medical (six) Branch hours. acetaminoph 2020- No [id number] 650mg Take 2 [facility] en 325 mg 9-17 09-18 tablets by ity of tablet 00:00: 04:59 mouth [place] 00 :00 every 6 Medical (six) Branch hours. acetaminoph 2020- No [id number] 650mg Take 2 Univers en 325 mg 9-17 09-18 tablets by ity of tablet 00:00: 04:59 mouth [place] 00 :00 every 6 Medical (six) Branch hours. acetaminoph 2020- No [id number] 650mg Take 2 [facility] en 325 mg 9-17 09-18 tablets by ity of tablet 00:00: 04:59 mouth [place] 00 :00 every 6 Medical (six) Branch hours. acetaminoph 2020- No [id number] 650mg Take 2 Univers en 325 mg 9-17 09-18 tablets by ity of tablet 00:00: 04:59 mouth [place] 00 :00 every 6 Medical (six) Branch hours. acetaminoph 2020-2020- No [id number] 650mg Take 2 [facility] en 325 mg 9-17 09-18 tablets by ity of tablet 00:00: 04:59 mouth [place] 00 :00 every 6 Medical (six) Branch hours. acetaminoph 2020- No [id number] 650mg Take 2 [facility] en 325 mg 9-17 09-18 tablets by ity of tablet 00:00: 04:59 mouth [place] 00 :00 every 6 Medical (six) Branch hours. acetaminoph 20200 2021- No [id number] 650mg Take 2 [facility] en 325 mg 9-17 09-18 tablets by ity of tablet 00:00: 04:59 mouth [place] 00 :00 every 6 Medical (six) Branch hours. acetaminoph 2020- No [id number] 650mg Take 2 [facility] en 325 mg 9-17 09-18 tablets by ity of tablet 00:00: 04:59 mouth [place] 00 :00 every 6 Medical (six) Branch hours. acetaminoph 2020- No [id number] 650mg Take 2 [facility] en 325 mg 9-17 09-18 tablets by ity of tablet 00:00: 04:59 mouth [place] 00 :00 every 6 Medical (six) Branch hours. acetaminoph 2020- No [id number] 650mg Take 2 [facility] en 325 mg 9-17 09-18 tablets by ity of tablet 00:00: 04:59 mouth [place] 00 :00 every 6 Medical (six) Branch hours. acetaminoph 2020- No [id number] 650mg Take 2 [facility] en 325 mg 9-17 09-18 tablets by ity of tablet 00:00: 04:59 mouth [place] 00 :00 every 6 Medical (six) Branch hours. acetaminoph 2020- No [id number] 650mg Take 2 [facility] en 325 mg 9-17 09-18 tablets by ity of tablet 00:00: 04:59 mouth [place] 00 :00 every 6 Medical (six) Branch hours. acetaminoph 2020- No [id number] 650mg Take 2 [facility] en 325 mg 9-17 09-18 tablets by ity of tablet 00:00: 04:59 mouth [place] 00 :00 every 6 Medical (six) Branch hours. acetaminoph 2020- No [id number] 650mg Take 2 [facility] en 325 mg 9-17 09-18 tablets by ity of tablet 00:00: 04:59 mouth [place] 00 :00 every 6 Medical (six) Branch hours. acetaminoph 2020- No [id number] 650mg Take 2 [facility] en 325 mg 9-17 09-18 tablets by ity of tablet 00:00: 04:59 mouth [place] 00 :00 every 6 Medical (six) Branch hours. acetaminoph 2020- No [id number] 650mg Take 2 [facility] en 325 mg 9-17 09-18 tablets by ity of tablet 00:00: 04:59 mouth [place] 00 :00 every 6 Medical (six) Branch hours. acetaminoph 2020- No [id number] 650mg Take 2 [facility] en 325 mg 9-17 09-18 tablets by ity of tablet 00:00: 04:59 mouth [place] 00 :00 every 6 Medical (six) Branch hours. acetaminoph 2020- No [id number] 650mg Take 2 [facility] en 325 mg 9-17 09-18 tablets by ity of tablet 00:00: 04:59 mouth [place] 00 :00 every 6 Medical (six) Branch hours. acetaminoph 2020- No [id number] 650mg Take 2 [facility] en 325 mg 9-17 09-18 tablets by ity of tablet 00:00: 04:59 mouth [place] 00 :00 every 6 Medical (six) Branch hours. acetaminoph 2020- No [id number] 650mg Take 2 [facility] en 325 mg 9-17 09-18 tablets by ity of tablet 00:00: 04:59 mouth [place] 00 :00 every 6 Medical (six) Branch hours. acetaminoph 2020- No [id number] 650mg Take 2 [facility] en 325 mg 9-17 09-18 tablets by ity of tablet 00:00: 04:59 mouth [place] 00 :00 every 6 Medical (six) Branch hours. acetaminoph 2020- No [id number] 650mg Take 2 [facility] en 325 mg 9-17 09-18 tablets by ity of tablet 00:00: 04:59 mouth [place] 00 :00 every 6 Medical (six) Branch hours. acetaminoph 2020- No [id number] 650mg Take 2 [facility] en 325 mg 9-17 09-18 tablets by ity of tablet 00:00: 04:59 mouth [place] 00 :00 every 6 Medical (six) Branch hours. acetaminoph 2020- No [id number] 650mg Take 2 [facility] en 325 mg 9-17 09-18 tablets by ity of tablet 00:00: 04:59 mouth [place] 00 :00 every 6 Medical (six) Branch hours. acetaminoph 2020- No [id number] 650mg Take 2 [facility] en 325 mg 9-17 09-18 tablets by ity of tablet 00:00: 04:59 mouth [place] 00 :00 every 6 Medical (six) Branch hours. acetaminoph 2020- No [id number] 650mg Take 2 [facility] en 325 mg 9-17 09-18 tablets by ity of tablet 00:00: 04:59 mouth [place] 00 :00 every 6 Medical (six) Branch hours. acetaminoph 2020- No [id number] 650mg Take 2 [facility] en 325 mg 9-17 09-18 tablets by ity of tablet 00:00: 04:59 mouth [place] 00 :00 every 6 Medical (six) Branch hours. acetaminoph 2020- No [id number] 650mg Take 2 [facility] en 325 mg 9-17 09-18 tablets by ity of tablet 00:00: 04:59 mouth [place] 00 :00 every 6 Medical (six) Branch hours. acetaminoph 2020- No [id number] 650mg Take 2 [facility] en 325 mg 9-17 09-18 tablets by ity of tablet 00:00: 04:59 mouth [place] 00 :00 every 6 Medical (six) Branch hours. acetaminoph 2020- No [id number] 650mg Take 2 [facility] en 325 mg 9-17 09-18 tablets by ity of tablet 00:00: 04:59 mouth [place] 00 :00 every 6 Medical (six) Branch hours. acetaminoph 2020- No [id number] 650mg Take 2 [facility] en 325 mg 9-17 09-18 tablets by ity of tablet 00:00: 04:59 mouth [place] 00 :00 every 6 Medical (six) Branch hours. acetaminoph 2020- No [id number] 650mg Take 2 [facility] en 325 mg 9-17 09-18 tablets by ity of tablet 00:00: 04:59 mouth [place] 00 :00 every 6 Medical (six) Branch hours. acetaminoph 20202020- No [id number] 650mg Take 2 [facility] en 325 mg 9-17 09-18 tablets by ity of tablet 00:00: 04:59 mouth [place] 00 :00 every 6 Medical (six) Branch hours. acetaminoph 2020- No [id number] 650mg Take 2 [facility] en 325 mg 9-17 09-18 tablets by ity of tablet 00:00: 04:59 mouth [place] 00 :00 every 6 Medical (six) Branch hours. acetaminoph 2020- No [id number] 650mg Take 2 [facility] en 325 mg 9-17 09-18 tablets by ity of tablet 00:00: 04:59 mouth [place] 00 :00 every 6 Medical (six) Branch hours. acetaminoph 2020- No [id number] 650mg Take 2 [facility] en 325 mg 9-17 09-18 tablets by ity of tablet 00:00: 04:59 mouth [place] 00 :00 every 6 Medical (six) Branch hours. acetaminoph 2020- No [id number] 650mg Take 2 [facility] en 325 mg 9-17 09-18 tablets by ity of tablet 00:00: 04:59 mouth [place] 00 :00 every 6 Medical (six) Branch hours. acetaminoph 2020- No [id number] 650mg Take 2 [facility] en 325 mg 9-17 09-18 tablets by ity of tablet 00:00: 04:59 mouth [place] 00 :00 every 6 Medical (six) Branch hours. acetaminoph 2020- No [id number] 650mg Take 2 [facility] en 325 mg 9-17 09-18 tablets by ity of tablet 00:00: 04:59 mouth [place] 00 :00 every 6 Medical (six) Branch hours. acetaminoph 2019- No [id number] 650mg Take 2 [facility] en 325 mg 9-17 12-16 tablets by ity of tablet 00:00: 00:00 mouth [place] 00 :00 every 6 Medical (six) Branch hours. loperamide 2019-2019- No [id number] 2mg Take 1 [facility] 2 mg 9-17 [...] (8 %) IV 07/31/20 at [facility] h Piggyback 4 0730, g Routine D5W [...] Starting Medi ryann Wed07/30/20 at 0828, Until Beth 08/01/20 at [...] lactated 2020-0 2020- No 1000mL at 999 [facility] ers ringers IV 07-2914 mL/hr, ity of infusion 22:30: 22:14 1,000 mL, Juan as 1,000 mL 00 :00 Intravenou Medic al s, ONCE, 1 Branch dose, [facility] 07/29/20 at 1730, Routine ibuprofen 2020-0 Yes 600mg 600 mg, Univ ers (IBU) 07-29 Oral, Q6H ity of tablet 600 17:00: ABX, First [place] mg 00 dose on [facility] 07/29/20 at 1200, Until Discontinu ed, Routine NaCl 0.9% 2020-0 Yes 10mL 10 mL, Univer s (NS) 07-29 Slow IV ity of injection 15:59: Push, PRN, [place] 10 mL 00 Starting [facility] 07/29/20 at 1059, Until Discontinu ed, Routine, line maintenanc e lidocaine 2020-0 Yes 5mL 5 mL, Univers 1% (PF) 07-29 Subcutaneo ity of (XYLOCAINE) 15:59: us, PRN, [place] injection 5 00 Starting Medi ryann mL [facility] 07/29/20 at 1059, Until Discontinu ed, Routine, Local anesthesia pantoprazol 2020-0 Yes 40mg 40 mg, Univ ers e 07-29 Oral, ity of (PROTONIX) 14:00: DAILY, [place] EC tablet 00 First dose Medi ryann 40 mg on [facility] 07/29/20 at 0900, Until Discontinu ed, Routine acetaminoph 2020-0 Yes 650mg 650 mg, Un thor en 07-29 Oral, Q6H ity of (TYLENOL) 14:00: ABX, First [place] tablet 650 00 dose on Medica l mg [facility] 07/29/20 at 0900, Until Discontinu ed, [...] dose [place] tablet 500 00 on [facility] Medical mg 07/29/20 at Branch 0800, Until Discontinu ed, Routine oxyCODONE 2020-0 2020- No 5mg 5 mg, Univer s immediate 07-29 Oral, ity of release 12:37: 11:44 Q6HPRN, [place] tablet 5 mg 43 :47 Starting Medi ryann [facility] 07/29/20 at 0737, Until 07/30/20 at 0644, [...] ONCE, 1 Medic al NaCl 0.9% dose, [facility] h (NS) 07/28/20 at piggyback 1700, 100 [...] dose, [place] mg 25 :00 Starting Medical [place] Branch 07/28/20 at 0853, Until Discontinu ed, Routine, anxiety ALPRAZolam 2019-0 Yes 1mg 1 mg, Univer s (XANAX) 07-28 Oral, ity of tablet 1 mg 13:52: QHSPRN, [place] 54 Starting [facility] 07/28/20 at 0852, Until Discontinu ed, Routine, Insomnia, anxiety D5W 0.45% 2019- No IV Univers NaCl 07-28 Infusion, ity of (1/2NS) 1 L 12:45: 12:37 at 100 [place] as + KCL 20 00 :04 mL/hr, Medical mEq CONTINUOUS Branch , Starting 07/28/20 at 0745, Until 07/29/20 at 0737, Routine acetaminoph 2019- No 1000mg 1,000 mg, [...] 0900, Until Discontinu ed, Routine magnesium 2019-0 2019- No 2g 2 g, IV Univ [...] ity of (fixed 00:45: 12:37 [place] dose) 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 HYDROmorpho 2019-0 [...] SERVICE acetaminoph 2019- No 1000mg 1,000 mg, [facility] en ADULT 07-26 IV ity of ([facility]) 00:21: 00:44 Infusion, [place] injection 16 [...] Univers en ADULT 07-25 IV ity of ([facility]) 12:45: 12:44 Infusion, [place] injection 00 [...] 0130, Until 07/28/20 at 0739, Routine morpHINE 2019- 2020- No 4mg 4 mg, Slow Un thor injection 4 07-24 IV Push, ity of mg 06:19: 14:48 Q3HPRN, [place] 51 :46 Starting Medical 07/24/20 Branch at 0119, Until 07/28/20 at 0948, Routine, Pain (scale 7-10) morpHINE 2020-0 2020- No 4mg 4 mg, Slow Un thor injection 4 07-24 IV Push, ity of mg 03:45: 02:42 ONCE, 1 [place] 00 :00 dose, [facility] 07/23/20 at Branch 2245, STAT NaCl 0.9% 2020-0 2020- No 500mL at 999 Univ ers (NS) bolus 07-24 mL/hr, 500 it y of infusion 03:45: 03:41 mL, IV [place] 500 mL 00 :00 Infusion, Medical ONCE, 1 [place] dose, [facility] 07/23/20 at 2245, STAT NaCl 0.9% 2020-0 2020- No 1000mL at 150 Uni vers (NS) IV 07-24 mL/hr, ity of infusion 03:45: 09:49 Intravenou [place] 1,000 mL 00 :01 s, Medical CONTINUOUS [place] , Starting 07/23/20 at 2245, Until 07/24/20 at 0449, Routine proMETHazin 2019-0 2020- No 12.5mg 12.5 mg, Univers e 07-24 IV ity of (PHENERGAN) 01:30: 01:30 Piggyback, [place] 12.5 mg in 00 :00 ONCE, 1 Medica l NaCl 0.9% dose, [facility] h (NS) 50 mL 07/23/20 at piggyback 2030, 50 mL morpHINE 2020-0 2020- No 4mg 4 mg, Slow Un thor injection 4 07-24 IV Push, ity of mg 01:15: 00:22 ONCE, 1 [place] 00 :00 dose, [facility] 07/23/20 at Branch 2015, STAT morpHINE 2020-0 2020- No 4mg 4 mg, Slow Un thor injection 4 07-23 IV Push, ity of mg 22:30: 21:20 ONCE, 1 [place] 00 :00 dose, [facility] 07/23/20 at [place] 1730, STAT piperacilli 2020-0 2020- No 3.375g [...] of 350 20:46: 20:47 s, ONCE, 1 [place] BULK-150 00 :00 dose, Tue Medica l mL) 07/23/20 at Branch injection 1600, 114 mL Routine methylPREDN 2019-2019- No 40mg 40 mg, IV Univers ISolone sod 07-23 Piggyback, i ty of succ 19:15: 19:10 ONCE, 1 [place] (SOLU-MEDRO 00 :00 dose, Tue Med ical L (PF)) 07/23/20 at Branch injection 1415, STAT 40 mg diphenhydrA 2019- No 25mg 25 mg, Uni vers MINE 07-23 Slow IV ity of (BENADRYL) 19:15: 19:18 Push, [place] injection 00 :00 ONCE, 1 Medical 25 mg dose, [facility] 07/23/20 at 1415, STAT morpHINE 2019-2019- No 4mg 4 mg, Slow Un thor injection 4 07-23 IV Push, ity of mg 19:15: 18:59 ONCE, 1 [place] 00 :00 dose, e Medical 07/23/20 at Branch 1415, STAT famotidine 2019- No 20mg 20 mg, Univ ers (PEPCID 07-23 Intravenou ity o f (PF)) 18:45: 19:02 s, ONCE, 1 [place] injection 00 :00 dose, Tue Medic al [...] daily. Branch ease suspension metoprolol 2018-11 Yes [id number] 25mg Take 1 Un thor tartrate 25 0-10 tablet by ity of mg tablet 00:00: mouth 2 [place] 00 (two) Medical times Branch daily. metoprolol 2018-11 Yes [id number] 25mg Take 1 Un thor tartrate 25 0-10 tablet by ity of mg tablet 00:00: mouth 2 [place] 00 (two) Medical times Branch daily. metoprolol 2018-11 Yes [id number] 25mg Take 1 Un thor tartrate 25 0-10 tablet by ity of mg tablet 00:00: mouth 2 [place] 00 (two) Medical times Branch daily. acetaminoph 2018-11 Yes [id number] 1{tbl} Take 1 Univers en-codeine 0-10 tablet by ity of (TYLENOL-CO 00:00: mouth [place] DEINE #4) 00 every 4 Medical 300-60 mg (four) Branch tablet hours as needed for Pain. levoFLOXaci 2018-11 Yes [id number] 750mg Take 1 Univers n 750 mg 0-10 tablet by ity of tablet 00:00: mouth [place] 00 every 24 Medical (twenty-fo Branch ur) hours. metoprolol 2018-11 Yes [id number] 25mg Take 1 Un thor tartrate 25 0-10 tablet by ity of mg tablet 00:00: mouth (two) Medical times Branch daily. metoprolol 2018-11 Yes [id number] 25mg Take 1 Un thor tartrate 25 0-10 tablet by ity of mg tablet 00:00: mouth (two) Medical times Branch daily. metoprolol 2018-11 Yes [id number] 25mg Take 1 Un thor tartrate 25 0-10 tablet by ity of mg tablet 00:00: mouth (two) Medical times Branch daily. metoprolol 2018-11 Yes [id number] 25mg Take 1 Un thor tartrate 25 0-10 tablet by ity of mg tablet 00:00: mouth () Medical times Branch daily. metoprolol 2018-11 Yes [id number] 25mg Take 1 Un thor tartrate 25 0-10 tablet by ity of mg tablet 00:00: mouth () Medical times Branch daily. metoprolol 2018-11 Yes [id number] 25mg Take 1 Un thor tartrate 25 0-10 tablet by ity of mg tablet 00:00: mouth (two) Medical times Branch daily. metoprolol 2018-11 Yes [id number] 25mg Take 1 Un thor tartrate 25 0-10 tablet by ity of mg tablet 00:00: mouth (two) Medical times Branch daily. metoprolol 2018-11 Yes [id number] 25mg Take 1 Un thor tartrate 25 0-10 tablet by ity of mg tablet 00:00: mouth (two) Medical times Branch daily. metoprolol 2018-11 Yes [id number] 25mg Take 1 Un thor tartrate 25 0-10 tablet by ity of mg tablet 00:00: mouth (two) Medical times Branch daily. metoprolol 2018-11 Yes [id number] 25mg Take 1 Un thor tartrate 25 0-10 tablet by ity of mg tablet 00:00: mouth (two) Medical times Branch daily. metoprolol 2018-11 Yes [id number] 25mg Take 1 Un thor tartrate 25 0-10 tablet by ity of mg tablet 00:00: mouth (two) Medical times Branch daily. metoprolol 2018-11 Yes [id number] 25mg Take 1 Un thor tartrate 25 0-10 tablet by ity of mg tablet 00:00: mouth (two) Medical times Branch daily. metoprolol 2018-11 Yes [id number] 25mg Take 1 Un thor tartrate 25 0-10 tablet by ity of mg tablet 00:00: mouth (two) Medical times Branch daily. metoprolol 2018-11 Yes [id number] 25mg Take 1 Un thor tartrate 25 0-10 tablet by ity of mg tablet 00:00: mouth (two) Medical times Branch daily. metoprolol 2018-11 Yes [id number] 25mg Take 1 Un thor tartrate 25 0-10 tablet by ity of mg tablet 00:00: mouth (two) Medical times Branch daily. metoprolol 2018-11 Yes [id number] 25mg Take 1 Un thor tartrate 25 0-10 tablet by ity of mg tablet 00:00: mouth (two) Medical times Branch daily. metoprolol 2018-11 Yes [id number] 25mg Take 1 Un thor tartrate 25 0-10 tablet by ity of mg tablet 00:00: mouth (two) Medical times Branch daily. metoprolol 2018-11 Yes [id number] 25mg Take 1 Un thor tartrate 25 0-10 tablet by ity of mg tablet 00:00: mouth (two) Medical times Branch daily. metoprolol 2018-11 Yes [id number] 25mg Take 1 Un thor tartrate 25 0-10 tablet by ity of mg tablet 00:00: mouth (two) Medical times Branch daily. metoprolol 2018-11 Yes [id number] 25mg Take 1 Un thor tartrate 25 0-10 tablet by ity of mg tablet 00:00: mouth (two) Medical times Branch daily. metoprolol 2018-11 Yes [id number] 25mg Take 1 Un thor tartrate 25 0-10 tablet by ity of mg tablet 00:00: mouth (two) Medical times Branch daily. metoprolol 2018-11 Yes [id number] 25mg Take 1 Un thor tartrate 25 0-10 tablet by ity of mg tablet 00:00: mouth (two) Medical times Branch daily. metoprolol 2018-11 Yes [id number] 25mg Take 1 Un thor tartrate 25 0-10 tablet by ity of mg tablet 00:00: mouth (two) Medical times Branch daily. metoprolol 2018-11 Yes [id number] 25mg Take 1 Un thor tartrate 25 0-10 tablet by ity of mg tablet 00:00: mouth (two) Medical times Branch daily. metoprolol 2018-11 Yes [id number] 25mg Take 1 Un thor tartrate 25 0-10 tablet by ity of mg tablet 00:00: mouth (two) Medical times Branch daily. metoprolol 2018-11 Yes [id number] 25mg Take 1 Un thor tartrate 25 0-10 tablet by ity of mg tablet 00:00: mouth (two) Medical times Branch daily. metoprolol 2018-11 Yes [id number] 25mg Take 1 Un thor tartrate 25 0-10 tablet by ity of mg tablet 00:00: mouth (two) Medical times Branch daily. metoprolol 2018-11 Yes [id number] 25mg Take 1 Un thor tartrate 25 0-10 tablet by ity of mg tablet 00:00: mouth (two) Medical times Branch daily. metoprolol 2018-11 Yes [id number] 25mg Take 1 Un thor tartrate 25 0-10 tablet by ity of mg tablet 00:00: mouth (two) Medical times Branch daily. metoprolol 2018-11 Yes [id number] 25mg Take 1 Un thor tartrate 25 0-10 tablet by ity of mg tablet 00:00: mouth (two) Medical times Branch daily. metoprolol 2018-11 Yes [id number] 25mg Take 1 Un thor tartrate 25 0-10 tablet by ity of mg tablet 00:00: mouth (two) Medical times Branch daily. metoprolol 2018-11 Yes [id number] 25mg Take 1 Un thor tartrate 25 0-10 tablet by ity of mg tablet 00:00: mouth (two) Medical times Branch daily. metoprolol 2018-11 Yes [id number] 25mg Take 1 Un thor tartrate 25 0-10 tablet by ity of mg tablet 00:00: mouth (two) Medical times Branch daily. metoprolol 2018-11 Yes [id number] 25mg Take 1 Un thor tartrate 25 0-10 tablet by ity of mg tablet 00:00: mouth (two) Medical times Branch daily. metoprolol 2018-11 Yes [id number] 25mg Take 1 Un thor tartrate 25 0-10 tablet by ity of mg tablet 00:00: mouth (two) Medical times Branch daily. metoprolol 2018-11 Yes [id number] 25mg Take 1 Un thor tartrate 25 0-10 tablet by ity of mg tablet 00:00: mouth (two) Medical times Branch daily. metoprolol 2018-11 Yes [id number] 25mg Take 1 Un thor tartrate 25 0-10 tablet by ity of mg tablet 00:00: mouth (two) Medical times Branch daily. metoprolol 2018-11 Yes [id number] 25mg Take 1 Un thor tartrate 25 0-10 tablet by ity of mg tablet 00:00: mouth (two) Medical times Branch daily. metoprolol 2018-11 Yes [id number] 25mg Take 1 Un thor tartrate 25 0-10 tablet by ity of mg tablet 00:00: mouth (two) Medical times Branch daily. metoprolol 2018-11 Yes [id number] 25mg Take 1 Un thor tartrate 25 0-10 tablet by ity of mg tablet 00:00: mouth (two) Medical times Branch daily. metoprolol 2018-11 Yes [id number] 25mg Take 1 Un thor tartrate 25 0-10 tablet by ity of mg tablet 00:00: mouth (two) Medical times Branch daily. metoprolol 2018-11 2020- No [id number] 25mg Take 1 U nivers tartrate 25 0-10 12-16 tablet by it y of mg tablet 00:00: 00:00 mouth 2 [place] 00 :00 (two) Medical times Branch daily. acetaminoph 2018-11 2020- No [id number] 1{tbl} Take 1 Univers en-codeine 0-10 09-17 tablet by ity of (TYLENOL-CO 00:00: 00:00 [place] DEINE #4) 00 :00 every 4 Medical 300-60 mg (four) Branch tablet hours as needed for Pain. levoFLOXaci 2018-11 2020- No [id number] 750mg Take 1 Univers n 750 mg 0-10 09-17 tablet by ity o f tablet 00:00: 00:00 mouth [place] 00 :00 every 24 Medical (twenty-fo Branch ur) hours. proMETHazin 2018-11 Yes [id number] 25mg Take 1 Univers e 25 mg 0-04 tablet by ity of tablet 00:00: mouth [place] 00 every 6 Medical (six) Branch hours as needed for Nausea and Vomiting (N/V). proMETHazin 2018-11 Yes [id number] 25mg Take 1 Univers e 25 mg 0-04 tablet by ity of tablet 00:00: mouth [place] 00 every 6 Medical (six) Branch hours as needed for Nausea and Vomiting (N/V). proMETHazin 2018-11 Yes [id number] 25mg Take 1 Univers e 25 mg 0-04 tablet by ity of tablet 00:00: mouth [place] 00 every 6 Medical (six) Branch hours as needed for Nausea and Vomiting (N/V). proMETHazin 2018-11 Yes [id number] 25mg Take 1 Univers e 25 mg 0-04 tablet by ity of tablet 00:00: mouth [place] 00 every 6 Medical (six) Branch hours as needed for Nausea and Vomiting (N/V). proMETHazin 2018-11 Yes [id number] 25mg Take 1 Univers e 25 mg 0-04 tablet by ity of tablet 00:00: mouth [place] 00 every 6 Medical (six) Branch hours as needed for Nausea and Vomiting (N/V). proMETHazin 2018-11 Yes [id number] 25mg Take 1 Univers e 25 mg 0-04 tablet by ity of tablet 00:00: mouth [place] 00 every 6 Medical (six) Branch hours as needed for Nausea and Vomiting (N/V). proMETHazin 2018-11 Yes [id number] 25mg Take 1 Univers e 25 mg 0-04 tablet by ity of tablet 00:00: mouth [place] 00 every 6 Medical (six) Branch hours as needed for Nausea and Vomiting (N/V). proMETHazin 2018-11 Yes [id number] 25mg Take 1 Univers e 25 mg 0-04 tablet by ity of tablet 00:00: mouth [place] 00 every 6 Medical (six) Branch hours as needed for Nausea and Vomiting (N/V). proMETHazin 2018-11 Yes [id number] 25mg Take 1 Univers e 25 mg 0-04 tablet by ity of tablet 00:00: mouth [place] 00 every 6 Medical (six) Branch hours as needed for Nausea and Vomiting (N/V). proMETHazin 2018-11 Yes [id number] 25mg Take 1 Univers e 25 mg 0-04 tablet by ity of tablet 00:00: mouth [place] 00 every 6 Medical (six) Branch hours as needed for Nausea and Vomiting (N/V). proMETHazin 2018-11 Yes [id number] 25mg Take 1 Univers e 25 mg 0-04 tablet by ity of tablet 00:00: mouth [place] 00 every 6 Medical (six) Branch hours as needed for Nausea and Vomiting (N/V). proMETHazin 2018-11 Yes [id number] 25mg Take 1 Univers e 25 mg 0-04 tablet by ity of tablet 00:00: mouth [place] 00 every 6 Medical (six) Branch hours as needed for Nausea and Vomiting (N/V). proMETHazin 2018-11 Yes [id number] 25mg Take 1 Univers e 25 mg 0-04 tablet by ity of tablet 00:00: mouth [place] 00 every 6 Medical (six) Branch hours as needed for Nausea and Vomiting (N/V). proMETHazin 2018-11 Yes [id number] 25mg Take 1 Univers e 25 mg 0-04 tablet by ity of tablet 00:00: mouth [place] 00 every 6 Medical (six) Branch hours as needed for Nausea and Vomiting (N/V). proMETHazin 2018-11 Yes [id number] 25mg Take 1 Univers e 25 mg 0-04 tablet by ity of tablet 00:00: mouth [place] 00 every 6 Medical (six) Branch hours as needed for Nausea and Vomiting (N/V). proMETHazin 2018-11 Yes [id number] 25mg Take 1 Univers e 25 mg 0-04 tablet by ity of tablet 00:00: mouth [place] 00 every 6 Medical (six) Branch hours as needed for Nausea and Vomiting (N/V). proMETHazin 2018-11 Yes [id number] 25mg Take 1 Univers e 25 mg 0-04 tablet by ity of tablet 00:00: mouth [place] 00 every 6 Medical (six) Branch hours as needed for Nausea and Vomiting (N/V). proMETHazin 2018-11 Yes [id number] 25mg Take 1 Univers e 25 mg 0-04 tablet by ity of tablet 00:00: mouth [place] 00 every 6 Medical (six) Branch hours as needed for Nausea and Vomiting (N/V). proMETHazin 2018-11 Yes [id number] 25mg Take 1 Univers e 25 mg 0-04 tablet by ity of tablet 00:00: mouth [place] 00 every 6 Medical (six) Branch hours as needed for Nausea and Vomiting (N/V). proMETHazin 2018-11 Yes [id number] 25mg Take 1 Univers e 25 mg 0-04 tablet by ity of tablet 00:00: mouth [place] 00 every 6 Medical (six) Branch hours as needed for Nausea and Vomiting (N/V). proMETHazin 2018-11 Yes [id number] 25mg Take 1 Univers e 25 mg 0-04 tablet by ity of tablet 00:00: mouth [place] 00 every 6 Medical (six) Branch hours as needed for Nausea and Vomiting (N/V). proMETHazin 2018-11 Yes [id number] 25mg Take 1 Univers e 25 mg 0-04 tablet by ity of tablet 00:00: mouth [place] 00 every 6 Medical (six) Branch hours as needed for Nausea and Vomiting (N/V). proMETHazin 2018-11 Yes [id number] 25mg Take 1 Univers e 25 mg 0-04 tablet by ity of tablet 00:00: mouth [place] 00 every 6 Medical (six) Branch hours as needed for Nausea and Vomiting (N/V). proMETHazin 2018-11 Yes [id number] 25mg Take 1 Univers e 25 mg 0-04 tablet by ity of tablet 00:00: mouth [place] 00 every 6 Medical (six) Branch hours as needed for Nausea and Vomiting (N/V). proMETHazin 2018-11 Yes [id number] 25mg Take 1 Univers e 25 mg 0-04 tablet by ity of tablet 00:00: mouth [place] 00 every 6 Medical (six) Branch hours as needed for Nausea and Vomiting (N/V). proMETHazin 2018-11 Yes [id number] 25mg Take 1 Univers e 25 mg 0-04 tablet by ity of tablet 00:00: mouth [place] 00 every 6 Medical (six) Branch hours as needed for Nausea and Vomiting (N/V). proMETHazin 2018-11- No [id number] 25mg Take 1 Univers e 25 mg 004 09-18 tablet by ity of tablet 00:00: 00:00 mouth [place] 00 :00 every 6 Medical (six) Branch hours as needed for Nausea and Vomiting (N/V). proMETHazin 2018- No 25mg 25 mg, IV Univers e 06-15 Piggyback, ity of (PHENERGAN) 20:15: 19:30 ONCE, 1 [place] 25 mg in 00 :00 dose, [facility] NaCl 0.9% 06/15/19 at [facility] h (NS) 50 mL 1515, 50 piggyback mL morpHINE 2018- No 4mg 4 mg, Slow Un thor injection 4 06-15 IV Push, ity of mg 20:15: 19:30 ONCE, 1 [place] 00 :00 dose, [facility] Medical 06/15/19 at Branch 1515, STAT iohexol [...] :00 ONCE, 1 Medical 25 mg dose, [facility] Branch 06/15/19 at 1345, STAT famotidine 2018- [...] [place] 25 mg in 00 :00 dose, [facility] Medica l NaCl 0.9% 06/15/19 at Branc h (NS) 50 mL 1345, 50 piggyback mL NaCl 0.9% 2018- No 1000mL at 999 Uni vers (NS) bolus 06-15 mL/hr, ity of infusion 17:00: 20:03 1,000 mL, [place] 1,000 mL 00 :00 IV Medical Infusion, Branch ONCE, 1 dose, [facility] 06/15/19 at 1200, LUISA proMETHazin Yes [id number] 25mg Take 1 U nivers e 25 mg 06-15 tablet by ity of tablet 00:00: mouth [place] 00 every 6 Medical (six) Branch hours as needed for Nausea and Vomiting (N/V). famotidine 2019- No [id number] 40mg Take 1 U nivers 40 mg 06-15 0816 tablet by ity of tablet 00:00: 04:59 mouth [place] 00 :00 daily for Medical 14 days. Branch predniSONE Yes [id number] Take 1 U nivers 10 mg 4-26 tablet ity of tablet 00:00: daily. [place] 00 Medical Branch proMETHazin Yes [id number] 25mg Insert 1 Univers e 25 mg 4-26 Suppositor ity of suppository 00:00: y [place] 00 rectum Medical every 4 Branch (four) hours as needed for Nausea and Vomiting (N/V). ALPRAZolam Yes 2mg Take 2 mg Un thor (XANAX) 2 2-23 by mouth 2 ity of mg tablet 19:37: (two) [place] 38 times Medical daily. Branch dextroamphe 2018-0 Yes 30mg Take 30 mg Univers tamine-amph 2-23 by mouth 2 it y of etamine 19:37: (two) [place] (ADDERALL) 38 times Medical 30 mg daily. Branch tablet Pantoprazol 0 Yes 40mg Take 40 mg Univers e 2-23 by mouth 2 ity of (PROTONIX) 19:37: (two) [place] 40 mg 38 times Medical delayed-rel daily. Branch ease suspension ALBUTEROL 2017-0 Yes 2{puff} Inhale 2 U nivers SULFATE 2-23 Puffs as ity of (PROAIR HFA 19:37: needed for [place] INHALE) 38 Other Medical (Asthma). Branch acetaminoph 2015-0 Yes 1{tbl} Take 1 Un thor en-codeine 9-29 tablet by ity of (TYLENOL-CO 00:00: mouth [place] DEINE #3) 00 every 6 Medical 300-30 mg (six) Branch tablet hours as needed for Pain (scale 4-6). pantoprazol 2016-0 Yes 20mg QD Take 20 mg [place] e 9-23 by mouth Health (PROTONIX) 23:40: daily. 20 mg 31 delayed release tablet pantoprazol 2016-0 Yes 20mg QD Take 20 mg [place] e 9-23 by mouth Health (PROTONIX) 23:40: daily. 20 mg 31 delayed release tablet pantoprazol 2016-0 Yes 20mg QD Take 20 mg [place] e 9-23 by mouth Health (PROTONIX) 23:40: daily. 20 mg 31 delayed release tablet pantoprazol 2016-0 Yes 20mg QD Take 20 mg [place] e 9-23 by mouth Health (PROTONIX) 23:40: daily. 20 mg 31 delayed release tablet acetaminoph 2015-0 Yes 1{tbl} Take 1 Un thor en-codeine 9-22 tablet by ity of (TYLENOL 00:00: mouth [place] #3) 300-30 00 every 6 Medica l mg tablet (six) Branch hours as needed for Pain (scale 4-6). proMETHazin 2015-0 Yes 12.5mg Insert 1 Univers e 5-10 Suppositor ity of (PHENERGAN) 00:00: y into [place] 12.5 mg 00 rectum Medical suppository every 4 Branc h (four) hours as needed for Nausea and Vomiting (N/V) for up to 5 doses. PHENERGAN 2016-0 Yes 25mg Insert 1 Univ ers 25 mg 3-12 Suppositor ity of suppository 00:00: y [place] 00 rectum Medical every 4 Branch (four) hours as needed for Nausea and Vomiting (N/V). HYDROcodone 2012-11 Yes Periapical 1{tbl} Take 1 [place] -acetaminop 0-22 abscess tablet by Health hen ([employer] 00:00: mouth 10-325 mg 00 every 6 tablet hours as needed for Pain. HYDROcodone 2012-11 Yes Periapical 1{tbl} Take 1 [place] -acetaminop 0-22 abscess tablet by Health hen ([employer] 00:00: mouth 10-325 mg 00 every 6 tablet hours as needed for Pain. HYDROcodone 2012-11 Yes Periapical 1{tbl} Take 1 [place] -acetaminop 0-22 abscess tablet by [facility] hen ([employer] 00:00: mouth 10-325 mg 00 every 6 tablet hours as needed for Pain. HYDROcodone 2012-11 Yes Periapical 1{tbl} Take 1 [place] -acetaminop 0-22 abscess tablet by [facility] hen ([employer] 00:00: mouth 10-325 mg 00 every 6 tablet hours as needed for Pain. HYDROcodone 2012-11 Yes Periapical 1{tbl} Take 1 [place] -acetaminop 0-22 abscess tablet by [facility] hen ([employer] 00:00: mouth 10-325 mg 00 every 6 tablet hours as needed for Pain. HYDROcodone 2012-11 Yes Car[place] 1{tbl} Take 1 [place] -acetaminop 0-21 tablet by [facility] hen ([employer] 00:00: mouth 5-325 mg 00 every 6 tablet hours as needed for Pain. HYDROcodone 2012-11 Yes [place] 1{tbl} Take 1 [place] -acetaminop 0-21 tablet by [facility] hen ([employer] 00:00: mouth 5-325 mg 00 every 6 tablet hours as needed for Pain. HYDROcodone 2012-11 Yes [place] 1{tbl} Take 1 [place] -acetaminop 0-21 tablet by [facility] hen ([employer] 00:00: mouth 5-325 mg 00 every 6 tablet hours as needed for Pain. HYDROcodone 2012-11 Yes [place] 1{tbl} Take 1 [place] -acetaminop 0-21 tablet by [facility] hen (NORCO) 00:00: mouth 5-325 mg 00 every 6 tablet hours as needed for Pain. HYDROcodone 2012-11 Yes [place] 1{tbl} Take 1 [place] -acetaminop 0-21 tablet by [facility] hen (NORCO) 00:00: mouth 5-325 mg 00 every 6 tablet hours as needed for Pain. proMETHazin 2010-11 Yes [id number] 12.5mg Take 1 Tab Univers e 2-23 by mouth ity of (PHENERGAN) 00:00: every 6 [place] 12.5 mg 00 (six) Medical tablet hours as Branch needed for Nausea and Vomiting. Vital Signs Vital Name Observation Time Observation Value Comments Source Systolic blood 2020-10-30 92 mm[Hg] University of pressure 22:01:00 [facility] Diastolic blood 2020-10-30 65 mm[Hg] University o f pressure 22:01:00 [facility] Heart rate 2020-10-30 104 /min University of :01:00 [facility] Body temperature 2020-10-30 36.83 [place] University of 22:01:00 [facility] Respiratory rate 2020-10-30 18 /min University of 22:01:00 [facility] Oxygen saturation 2020-10-30 96 /min University in Arterial blood 22:01:00 [facility] by Pulse oximetry [place] Body weight 2020-10-24 61.2 kg University of 19:35:00 [facility] [facility] BMI 2020-10-24 21.13 kg/m2 University of 19:35:00 [facility] Systolic blood 2020-10-30 92 mm[Hg] University of pressure 22:01:00 [facility] Diastolic blood 2020-10-30 65 mm[Hg] University o f pressure 22:01:00 [facility] Heart rate 2020-10-30 104 /min University of 22:01:00 [facility] Body temperature 2020-10-30 36.83 Tayla [place] of 22:01:00 [facility] Respiratory rate 2020-10-30 18 /min University of 22:01:00 [facility] Oxygen saturation 2020-10-30 96 /min University in Arterial blood 22:01:00 [facility] ryann by Pulse oximetry Branch Body weight 2020-10-24 61.2 kg University of 19:35:00 [facility] BMI 2020-10-24 21.13 kg/m2 University of 19:35:00 [facility] Systolic blood 2020-10-19 92 mm[Hg] University of pressure 19:08:00 [facility] Diastolic blood 2020-10-19 63 mm[Hg] University o f pressure 19:08:00 [facility] Heart rate 2020-10-19 98 /min University of 19:08:00 [facility] Body temperature 2020-10-19 36.17 Tayla University of 19:08:00 [facility] Respiratory rate 2020-10-19 18 /min University of 19:08:00 [facility] Oxygen saturation 2020-10-19 100 /min University of in Arterial blood 19:08:00 [facility] ryann by Pulse oximetry Branch Body height 2020-10-14 170.2 cm University of 12:21:00 [facility] Body weight 2020-10-14 55.1 kg University of 12:21:00 [facility] BMI 2020-10-14 19.03 kg/m2 University of 12:21:00 [facility] Systolic blood 2020-10-19 92 mm[Hg] University of pressure 19:08:00 [facility] Diastolic blood 2020-10-19 63 mm[Hg] University o f pressure 19:08:00 [facility] Heart rate 2020-10-19 98 /min University of 19:08:00 [facility] Body temperature 2020-10-19 36.17 Tayla University of 19:08:00 [facility] Respiratory rate 2020-10-19 18 /min University of 19:08:00 [facility] Oxygen saturation 2020-10-19 100 /min University of in Arterial blood 19:08:00 [facility] ryann by Pulse oximetry Branch Body height 2020-10-14 170.2 cm University of 12:21:00 [facility] Body weight 2020-10-14 55.1 kg University of 12:21:00 [facility] BMI 2020-10-14 19.03 kg/m2 University of 12:21:00 [facility] Respiratory rate 2020-10-02 20 /min University of 06:35:00 [facility] Oxygen saturation 2020-10-02 97 /min University of in Arterial blood 06:35:00 [facility] ryann by Pulse oximetry Branch Systolic blood 2020-10-02 122 mm[Hg] University of pressure 04:53:00 [facility] Diastolic blood 2020-10-02 88 mm[Hg] University o f pressure 04:53:00 [facility] Heart rate 2020-10-02 133 /min University of 04:53:00 [facility] Body temperature 2020-10-02 37.28 Tayla University of 04:53:00 [facility] Body height 2020-10-02 170 cm University of 04:53:00 [facility] Body weight 2020-10-02 58.968 kg University of 04:53:00 [facility] BMI 2020-10-02 20.40 kg/m2 University of 04:53:00 [facility] Systolic blood 2020-09-27 98 mm[Hg] University of pressure 15:38:00 [facility] Diastolic blood 2020-09-27 64 mm[Hg] University o f pressure 15:38:00 [facility] Heart rate 2020-09-27 86 /min University of 15:38:00 [facility] Body temperature 2020-09-27 37.06 Tayla University of 15:38:00 [facility] Body height 2020-09-27 170.2 cm University of 15:38:00 [facility] Body weight 2020-09-27 59.104 kg University of 15:38:00 [facility] BMI 2020-09-27 20.41 kg/m2 University of 15:38:00 [facility] Oxygen saturation 2020-09-27 100 /min [facility] in Arterial blood 15:38:00 [facility] by Pulse oximetry Branch Systolic blood 2020-09-18 106 mm[Hg] University of pressure 21:45:00 [facility] Diastolic blood 2020-09-18 68 mm[Hg] University o f pressure 21:45:00 [facility] Heart rate 2020-09-18 101 /min University of 21:45:00 [facility] Body temperature 2020-09-18 36.22 Tayla University of 21:45:00 [facility] Respiratory rate 2020-09-18 18 /min University of 21:45:00 [facility] Oxygen saturation 2020-09-18 98 /min [facility] in Arterial blood 21:45:00 [facility] by Pulse oximetry Branch Body weight 2020-09-18 61.236 kg With one University of 10:59:00 blanket and [facility]. Branch BMI 2020-09-18 21.14 kg/m2 University of 10:59:00 [facility] Body height 2020-09-13 170.2 cm University of 20:47:00 [facility] Systolic blood 2020-09-01 129 mm[Hg] University of pressure 11:00:00 [facility] Diastolic blood 2020-09-01 86 mm[Hg] University o f pressure 11:00:00 [facility] Heart rate 2020-09-01 102 /min University of 11:00:00 [facility] Body temperature 2020-09-01 37.67 Tayla University of 10:00:00 [facility] Respiratory rate 2020-09-01 18 /min University of 10:00:00 [facility] Oxygen saturation 2020-09-01 100 /min University of in Arterial blood 10:00:00 [place] [facility] by Pulse oximetry [facility] Body weight 2020-09-01 58.968 kg University of 06:45:00 [facility] BMI 2020-09-01 20.36 kg/m2 University of 06:45:00 [facility] Systolic blood 2020-08-24 124 mm[Hg] University of pressure 00:00:00 [facility] Diastolic blood 2020-08-24 90 mm[Hg] University o f pressure 00:00:00 [facility] Heart rate 2020-08-24 89 /min University of 00:00:00 [facility] Respiratory rate 2020-08-24 20 /min University of 00:00:00 [facility] Oxygen saturation 2020-08-24 100 /min University of in Arterial blood 00:00:00 [facility]ann by Pulse oximetry [facility] Body temperature 2020-08-23 36.61 Tayla University of 22:27:00 [facility] [place] Body weight 2020-08-23 58.968 kg University of 22:27: [facility] BMI 2020-08-23 20.36 kg/m2 University of 22:27:00 [facility] Systolic blood 2020-08-20 117 mm[Hg] University of pressure 16:22:00 [facility] Diastolic blood 2020-08-20 86 mm[Hg] University o f pressure 16:22:00 [facility] Heart rate 2020-08-20 129 /min University of 16:22:00 [facility] Body temperature 2020-08-20 36.89 Tayla University of 16:21:00 [facility] Respiratory rate 2020-08-20 16 /min University of 16:21:00 [facility] Body height 2020-08-20 170.2 cm University of 16:21:00 [facility] Body weight 2020-08-20 57.607 kg University of 16:21:00 [facility] BMI 2020-08-20 19.89 kg/m2 University of 16:21: [facility] Systolic blood 2020-08-18 115 mm[Hg] University of pressure 04:00:00 [facility] Diastolic blood 2020-08-18 79 mm[Hg] University o f pressure 04:00:00 [facility] Heart rate 2020-08-18 104 /min University of 04:00:00 [facility] Respiratory rate 2020-08-18 17 /min University of 04:00:00 [facility] Oxygen saturation 2020-08-18 100 /min University of in Arterial blood 04:00:00 [facility] by Pulse oximetry Branch Body temperature 2020-08-18 37.06 Tayla University of 00:44:00 [facility] Body weight 2020-08-18 56.7 kg University of 00:44:00 [facility] BMI 2020-08-18 19.58 kg/m2 University of 00:44:00 [facility] Systolic blood 2020-08-09 153 mm[Hg] University of pressure 15:40:00 [facility] Diastolic blood 2020-08-09 83 mm[Hg] University o f pressure 15:40:00 [facility] Heart rate 2020-08-09 143 /min University of 15:40:00 [facility] Body temperature 2020-08-09 36.83 Tayla University of 15:40:00 [facility] Body height 2020-08-09 170.2 cm University of 15:40:00 [facility] Body weight 2020-08-09 56.473 kg University of 15:40:00 [facility] BMI 2020-08-09 19.50 kg/m2 University of 15:40:00 [facility] Oxygen saturation 2020-08-09 100 /min University of in Arterial blood 15:40:00 [facility] by Pulse oximetry Branch Systolic blood 2020-08-01 126 mm[Hg] University of pressure 13:03:00 [facility] Diastolic blood 2020-08-01 76 mm[Hg] University o f pressure 13:03:00 [facility] Heart rate 2020-08-01 119 /min University of 13:03:00 [facility] Body temperature 2020-08-01 36.67 Tayla University of 13:03:00 [facility] Respiratory rate 2020-08-01 16 /min University of 13:03:00 [facility] Oxygen saturation 2020-08-01 99 /min University of in Arterial blood 13:03:00 [facility] by Pulse oximetry [facility] Body weight 2020-07-23 70.308 kg [facility] 16:57:00 [facility] BMI 2020-07-23 24.28 kg/m2 [facility] 16:57:00 [facility] Systolic blood 2019-06-15 110 mm[Hg] [facility] pressure 18:22:00 [facility] Diastolic blood 2019-06-15 57 mm[Hg] [facility] pressure 18:22:00 [facility] Heart rate 2019-06-15 91 /min University 18:22:00 [facility] Respiratory rate 2019-06-15 18 /min [facility] 18:22:00 [facility] Oxygen saturation 2019-06-15 98 /min [facility] in Arterial blood 18:22:00 [facility] by Pulse oximetry [place] Body temperature 2019-06-15 38 Tayla University 16:54:00 [facility] Body weight 2019-06-15 83.915 kg [facility] 16:54:00 [facility] BMI 2019-06-15 28.98 kg/m2 [facility] 16:54:00 [facility] Procedures Procedure Date / Time Performing Clinician Source Performed AUTHORIZATION FOR RELEASE 2021-06-18 05:01:00 Doctor Unassigned, [facility] Name Medical [place] EXTERNAL PROVIDER RECORDS 2020-11-20 06:01:00 Doctor Unassigned, [facility] Name [facility] [place] CBC WITH DIFF 2020-10-29 13:10:00 Leticia Hinson [facility] MAGNESIUM 2020-10-29 09:36:00 [facility]OLIC PANEL 2020-10-29 09:36:00 [facility] (NA, K, CL, CO2, GLUCOSE, [facility] BUN, CREATININE, CA) PHOSPHORUS 2020-10-28 10:00:00 Rena Moser [facility] MAGNESIUM 2020-10-28 10:00:00 Mark [facility] BASIC METABOLIC PANEL 2020-10-28 10:00:00 [facility] (NA, K, CL, CO2, GLUCOSE, [facility] BUN, CREATININE, CA) CBC WITH DIFF 2020-10-28 09:59:00 [facility] 2020-10-27 07:05:00 [facility]OLIC [facility]EL 2020-10-27 07:05:00 [facility] ([facility], K, CL, CO2, GLUCOSE, Medica l Branch BUN, CREATININE, CA) CBC WITH DIFF 2020-10-27 07:05:00 [facility] URINALYSIS 2020-10-27 07:05:00 Suraj [facility] URINE CULTURE 2020-10-27 07:05:00 Suraj [facility] CBC WITH DIFF 2020-10-26 11:43:00 [facility] PHOS[facility]US 2020-10-26 03:41:00 [facility] MAGNESIUM 2020-10-26 03:41:00 [facility] BASIC METABOLIC PANEL 2020-10-26 03:41:00 [facility] (NA, K, CL, CO2, GLUCOSE, Medica l Branch BUN, CREATININE, CA) CBC WITH DIFF 2020-10-26 03:41:00 [facility] COVID-19 (ID NOW RAPID 2020-10-25 01:26:00 [facility] LAB ONLY COVID 2020-10-25 01:26:00 [facility] INTER[facility]ATION [facility] BASIC METABOLIC PANEL 2020-10-24 22:27:00 Leticia Hinson [facility] (NA, K, CL, CO2, GLUCOSE, Medica l Branch BUN, CREATININE, CA) CBC WITH DIFF 2020-10-24 22:27:00 Leticia Hinson [facility] CT ABDOMEN PELVIS W 2020-10-24 21:20:40 Ehsan [facility] CONTRAST [facility] BASIC METABOLIC PANEL 2020-10-17 23:11:00 Darren Chun [facility] (NA, K, CL, CO2, GLUCOSE, Medica l Branch BUN, CREATININE, CA) CLOSTRIDIUM DIFFICILE 2020-10-17 17:24:00 Ehsan, Rena Univer [facility] MRSA / MSSA SCREEN BY 2020-10-15 01:09:00 Mandeep Garnica [facility] PHILL BERMUDEZ [facility] SURGICAL PATHOLOGY EXAM 2020-10-14 15:01:00 Kalee [facility] EXPLORATORY LAPAROTOMY 2020-10-14 13:10:00 Kalee [facility] ILEOSTOMY TAKEDOWN 2020-10-14 13:10:00 Kalee [facility] ASSIGNMENT OF BENEFITS 2020-10-14 11:29:56 Doctor Unassigned, [facility] URINALYSIS 2020-10-02 05:22:00 Ebony Chakraborty [facility] LIPASE 2020-10-02 05:19:00 Ebony Chakraborty [facility] HEPATIC FUNCTION PANEL 2020-10-02 05:19:00 Ebony Chakraborty [facility] ([id number]) (ALB,T.PRO,BILI Medical Branch T,BU/BC,ALT,AST,ALK PHOS) BASIC METABOLIC PANEL 2020-10-02 05:19:00 Ebony Chakraborty [facility] (NA, K, CL, CO2, GLUCOSE, Medica l Branch BUN, CREATININE, CA) CBC WITH DIFF 2020-10-02 05:19:00 Ebony Chakraborty [facility] CONSENT/REFUSAL FOR 2020-10-02 04:45:02 Doctor Unassigned, [facility] DIAGNOSIS AND TREATMENT [facility] [place] COMP. METABOLIC PANEL 2020-09-16 12:00:00 Roby Jean [facility] ([id number]) Medical Branch COMP. METABOLIC PANEL 2020-09-15 09:58:00 Roby Jean [facility] ([id number]) Medical Branch CREATINE KINASE 2020-09-14 16:03:00 Roby Jean [facility] HEPATIC FUNCTION PANEL 2020-09-14 16:03:00 Roby Jean [facility] ([id number]) (ALB,[facility]PRO,[facility] [place] T,BU/BC,ALT,AST,ALK PHOS) BASIC METABOLIC PANEL 2020-09-14 16:03:00 Roby Jean [facility] (NA, K, CL, CO2, GLUCOSE, Medica l Branch BUN, CREATININE, CA) HEPATITIS B SURFACE 2020-09-14 10:15:00 [facility] HEPATITIS B SURFACE 2020-09-14 10:15:00 [facility] ANTIGEN [facility] HCV BY PCR 2020-09-14 10:15:00 [facility]OUTINE & RHYTHM 2020-09-13 18:17:57 Delta Hellen [facility] STRIP Medical Branch MAGNESIUM 2020-09-13 18:16:00 [facility] TROPONIN I 2020-09-13 18:16:00 [facility] 2020-09-13 17:15:00 [facility] COMP. METABOLIC PANEL 2020-09-13 17:15:00 Delta Hellen [facility] ([id number]) [facility] CBC WITH DIFF 2020-09-13 17:15:00 Delta [facility] XR ABDOMEN 2 VW 2020-09-13 16:44:14 [facility] 2020-09-13 05:01:00 Doctor Unassigned, [facility] DOCUMENTS [facility] CT ABDOMEN PELVIS W 2020-09-01 08:02:47 Shayla Munoz [facility] CONTRAST [facility] LIPASE 2020-09-01 07:10:00 Shayla Munoz [facility] COMP. METABOLIC PANEL 2020-09-01 07:10:00 Shayla Munoz [facility] ([id number]) Medical Branch CBC WITH DIFF 2020-09-01 07:10:00 Shayla Munoz [facility] CT ABDOMEN PELVIS W 2020-08-24 01:30:05 Matthias Silvestre [facility] CONTRAST Medical Branch LIPASE 2020-08-23 23:52:00 Matthias Silvestre [facility] CBC WITH DIFF 2020-08-23 23:52:00 Nirmala, Kat[facility] CONSENT/REFUSAL FOR 2020-08-23 22:12:59 Doctor Unawendy, [facility] DIAGNOSIS AND TREATMENT [facility] [place] CT ABDOMEN PELVIS W 2020-08-18 02:24:35 Shayla Munoz [facility] CONTRAST Medical Branch LIPASE 2020-08-18 01:23:00 Shayla Munoz [facility] COMP. METABOLIC PANEL 2020-08-18 01:23:00 Shayla Munoz [facility] ([id number]) Medical Branch CBC WITH DIFF 2020-08-18 01:23:00 Shayla Munoz [facility] COVID-19 (ID NOW RAPID 2020-08-18 01:23:00 Alexander [facility] TESTING) Medical Branch NOTICE OF PRIVACY 2020-08-18 00:35:45 Doctor Vanessa, [facility] PRACTICES [facility] [place] CONSENT/REFUSAL FOR 2020-08-18 00:31:36 Doctor Vanessa, [facility] DIAGNOSIS AND TREATMENT [facility] [place] AUTHORIZATION TO RELEASE 2020-08-09 05:01:00 Doctor Vanessa, [facility] PHI TO [facility] Name Medical [place] PHOSPHORUS 2020-08-01 08:47:00 [facility] 2020-08-01 08:47:00 [facility] BASIC METABOLIC PANEL 2020-08-01 08:47:00 [facility] ([facility], K, CL, CO2, GLUCOSE, Medica l Branch BUN, CREATININE, CA) CBC WITH DIFF 2020-08-01 08:47:00 [facility] PHOSPHORUS 2020-07-31 10:06:00 [facility] MAGNESIUM 2020-07-31 10:06:00 [facility] BASIC METABOLIC PANEL 2020-07-31 10:06:00 [facility] (NA, K, CL, CO2, GLUCOSE, Medica l Branch BUN, CREATININE, CA) CBC WITH DIFF 2020-07-31 10:06:00 [facility] PHOSPHORUS 2020-07-30 09:29:00 [facility] MAGNESIUM 2020-07-30 09:29:00 [facility] BASIC METABOLIC PANEL 2020-07-30 09:29:00 [facility] (NA, K, CL, CO2, GLUCOSE, Medica l Branch BUN, CREATININE, CA) BASIC METABOLIC PANEL 2020-07-29 10:11:00 [facility] (NA, K, CL, CO2, GLUCOSE, Medica l Branch BUN, CREATININE, CA) CBC WITHOUT DIFF 2020-07-29 10:11:00 [facility] PROTHROMBIN TIME / INR 2020-07-29 10:11:00 [facility] ACTIVATED PARTIAL 2020-07-29 10:11:00 [facility] T[facility] FIBRINOGEN 2020-07-29 10:11:00 [facility]. BLUE 2020-07-29 10:11:00 Kalee [facility] EXTRA TUBE LT. GREEN 2020-07-29 10:11:00 Kalee [facility] XR KUB 2020-07-29 09:55:00 [facility] CBC WITHOUT DIFF 2020-07-28 10:15:00 Devan [facility] BASIC METABOLIC PANEL 2020-07-28 09:47:00 Farooq Hartman [facility] (NA, K, CL, CO2, GLUCOSE, Jose [facility] BUN, CREATININE, CA) BASIC METABOLIC PANEL 2020-07-27 10:39:00 Farooq Hartman [facility] (NA, K, CL, CO2, GLUCOSE, [facility] BUN, CREATININE, CA) CBC WITHOUT DIFF 2020-07-27 10:39:00 Farooq Hartman [facility] BASIC METABOLIC PANEL 2020-07-26 07:53:00 Farooq Hartman [facility] (NA, K, CL, CO2, GLUCOSE, [facility] BUN, CREATININE, CA) CBC WITHOUT DIFF 2020-07-26 07:53:00 Devan [facility] MAGNESIUM 2020-07-26 00:13:00 Devan [facility] BASIC METABOLIC PANEL 2020-07-26 00:13:00 Farooq Hartman [facility] (NA, K, CL, CO2, GLUCOSE, [facility] BUN, CREATININE, CA) CBC WITHOUT DIFF 2020-07-26 00:13:00 Devan [facility] PROTHROMBIN TIME / INR 2020-07-26 00:13:00 Farooq Hartman [facility] ACTIVATED PARTIAL 2020-07-26 00:13:00 Farooq Hartman [facility] THRMPLAS [facility] SURGICAL PATHOLOGY EXAM 2020-07-25 22:08:00 Kalee [facility] ILEOSTOMY 2020-07-25 20:18:00 [facility] ILEOCECECTOMY 2020-07-25 20:18:00 Kalee [facility] BASIC METABOLIC PANEL 2020-07-25 11:35:00 Akshat Tuttle [facility] (NA, K, CL, CO2, GLUCOSE, Medica l Branch BUN, CREATININE, CA) CBC WITHOUT DIFF 2020-07-25 11:35:00 Akshat Tuttle [facility] ABORH CONFIRMATION 2020-07-25 04:37:00 Mercedez Negro [facility] HB ABO GROUPING 2020-07-25 04:12:00 Oliver Nunez [facility] BASIC METABOLIC PANEL 2020-07-24 07:34:00 Dc Jay [facility] (NA, K, CL, CO2, GLUCOSE, Medica l Branch BUN, CREATININE, CA) CBC WITHOUT DIFF 2020-07-24 07:34:00 Dc Jay [facility] XR ABDOMEN 1 VW 2020-07-24 06:56:00 Dc Jay [facility] EKG-12 LEAD 2020-07-24 06:39:07 Farooq Zepeda [facility] COVID-19 (ID NOW RAPID 2020-07-24 00:26:00 Mercedez Negro [facility] TESTING) Medical Branch LACTIC ACID WHOLE BLOOD 2020-07-24 00:24:00 Mercedez Negro [facility] BLOOD CULTURE SCREEN 2020-07-23 21:41:00 Mercedez Negro [facility] LACTIC ACID WHOLE BLOOD 2020-07-23 21:41:00 Merced[place] Negro [facility] CT ABDOMEN PELVIS W 2020-07-23 20:56:34 [place] [address] [facility] LIPASE 2020-07-23 19:31:00 Mercedez Negro [facility] HEPATIC FUNCTION PANEL 2020-07-23 19:31:00 Mercedez Negro [facility] ([id number]) (ALB,T.PRO,BILI Medical Branch T,BU/BC,ALT,AST,ALK PHOS) BASIC METABOLIC PANEL 2020-07-23 19:31:00 Mercedez Negro [facility] (NA, K, CL, CO2, GLUCOSE, Medica l Branch BUN, CREATININE, CA) CBC WITH DIFF 2020-07-23 19:31:00 Mercedez Negro [facility] URINALYSIS 2020-07-23 19:19:00 Mercedez Negro [facility] NOTICE OF PRIVACY 2020-07-23 16:48:03 Doctor Vanessa, [facility] PRACTICES [facility] CONSENT/REFUSAL FOR 2020-07-23 16:47:54 Doctor Vanessa, [facility] DIAGNOSIS AND TREATMENT [facility] AGREEMENTS AUTHORIZATIONS 2020-07-23 05:01:00 Doctor Vanessa, [facility] AND IRREVOCABLE [facility] [place] ASSIGNMENTS (FORM 2001) CT ABDOMEN PELVIS W 2019-06-15 18:45:34 Mary Jo Dukes [facility] LACTIC ACID WHOLE BLOOD 2019-06-15 17:46:00 Mary Jo Dukes [facility] LIPASE 2019-06-15 17:30:00 Mary Jo Dukes [facility] HEPATIC FUNCTION PANEL 2019-06-15 17:30:00 Mary Jo Dukes [facility] ([id number]) (ALB,T.PRO,BILI Medical Branch T,BU/BC,ALT,AST,ALK PHOS) BASIC METABOLIC PANEL 2019-06-15 17:30:00 Mary Jo Dukes [facility] (NA, K, CL, CO2, GLUCOSE, Medica l Branch BUN, CREATININE, CA) CBC WITH DIFFERENTIAL 2019-06-15 17:30:00 Mary Jo Dukes [facility] POCT TEST 2019-06-15 17:24:00 Mary Jo Dukes [facility] URINALYSIS 2019-06-15 17:22:00 Mary Jo Dukes [facility] NOTICE OF PRIVACY 2019-06-15 16:39:09 Doctor Unassigned, [facility] PRACTICES [facility] CONSENT/REFUSAL FOR 2019-06-15 16:38:53 Doctor Unassigned, [facility] DIAGNOSIS AND TREATMENT [facility] [place] Plan of Care Planned Activity Planned Date Details Comments Source Future Scheduled Test 2022-08-15 00:00:00 IMM Influenza [facility] Seasonal (>/= 19 yrs) [code = [...] Future Scheduled Test 2014 00:00:00 Breast Cancer [facility] (Yearly) [code = Breast Cancer Scrn (Yearly)] Future Scheduled Test 2014 00:00:00 Breast Cancer Scrn [facility] (Yearly) [code = Breast Cancer Scrn (Yearly)] [...] malignant neoplasm of cervix (procedure) [code = 458521689] Future Scheduled Test 2004 00:00:00 Screening for [facility] malignant neoplasm of cervix (procedure) [code = 193457338] Future Scheduled Test 2004 00:00:00 Screening for [facility] malignant neoplasm of cervix (procedure) [code = 395105460] Future Scheduled Test 2004 00:00:00 Screening for [facility] malignant neoplasm of cervix (procedure) [code = 881168161] Future Scheduled Test 2004 00:00:00 Screening for [facility] malignant neoplasm of cervix (procedure) [code = 774719164] Future Scheduled Test 2004 00:00:00 Screening for [facility] malignant neoplasm of cervix (procedure) [code = 838472044] Future Scheduled Test 2004 00:00:00 Screening for [facility] malignant neoplasm of cervix (procedure) [code = 765900747] Future Scheduled Test 2004 00:00:00 Screening for [facility] malignant neoplasm of cervix (procedure) [code = 230273669] Future Scheduled Test 2004 00:00:00 Screening for [facility] malignant neoplasm of cervix (procedure) [code = 694215233] Future Scheduled Test 2004 00:00:00 Screening for [facility] malignant neoplasm of cervix (procedure) [code = 708637972] Future Scheduled Test 1976-04-08 00:00:00 COVID-19 Vaccine (#1) [facility] [code = COVID-19 Vaccine (#1)] Future Scheduled Test 1975-04-08 00:00:00 COVID-19 Vaccine (#1) [facility] [code = COVID-19 Vaccine (#1)] Future Scheduled Test 1975-04-08 00:00:00 COVID-19 Vaccine (#1) [facility] [code = COVID-19 Vaccine (#1)] Future Scheduled Test 1975-04-08 00:00:00 COVID-19 Vaccine (#1) [facility] [code = COVID-19 Vaccine (#1)] Future Scheduled Test 1975-04-08 00:00:00 COVID-19 Vaccine (#1) [facility] [code = COVID-19 Vaccine (#1)] Future Scheduled Test 1974 00:00:00 Fluoride Varnish [facility] [code = Fluoride Varnish] Future Scheduled Test 1974 00:00:00 Fluoride Varnish [facility] [code = Fluoride Varnish] Future Scheduled Test 1974 00:00:00 Fluoride Varnish [facility] [code = Fluoride Varnish] Encounters Start End Encounter Admission Attending Care Care Encounter Source Date/Time Date/Time Type Type Clinicians Facility Department ID 2021-09-13 Emergency [facility] [id number] Univers 06:14:00 ity [facility] 2021-09-13 Outpatient COLINTAK, DARREN [facility] [id number] Univers 05:23:22 ity of [facility] 2021-09-13 Emergency [facility] [id number] Univers 04:35:58 ity of [facility] 2021-09-13 Emergency [facility] [id number] Univers 02:03:39 ity [facility] 2021-09-13 Emergency [facility] [id number] Univers 00:06:17 ity [facility] 2021-09-12 Emergency [facility] [id number] Univers 23:33:58 ity of [facility] 2021-09-12 Emergency [facility] [id number] Univers 22:11:08 ity of [facility] 2021-09-12 Emergency [facility] [id number] Univers 20:54:06 ity [facility] 2021-03-20 Inpatient HCAPM JOSE ROBERTO [id number] [facility] 10:26:00 41 [facility] 2021-01-10 Inpatient HCAWU JOSE ROBERTO [id number] [facility] 20:22:[address] [facility] 2021-06-18 2021-06-18 Orders Doctor KELLY 1.2.840.114 [id number] Univers 00:00:00 00:00:00 Only Unassigned, ARMAND 350.1.13.10 ity of [facility] 4.2.7.2.686 Juan as [phone] [facility] 009 Branch 2021-05-31 2021-05-31 Emergency E STEFFI, MHNW MHNW 7504 MHNW 11:46:00 20:16:00 DELORIS 2021-03-20 2021-03-20 Outpatient NIDIA Villanueva HCACL [id number] [facility] 18:43:30 18:43:30 Safi 05 [facility] 2021-01-03 2021-01-03 Patient Anne Fuentes 1.2.840.114 [id number] Univers 00:00:00 00:00:00 Outreach Mercedez Foleyy 350.1.13.10 ity [place].2.[place] [phone] [facility] 403 Branch 2020-11-26 2020-11-26 Outpatient Nick [facility] [id number] Univers 09:00:00 09:00:00 ORPHEUS ity of [facility] 2020-11-26 2020-11-26 Telephone Carlos AeverardoDarren [facility] 1.2.840.114 [id number] Univers 00:00:00 00:00:00 Health 350.1.13.10 it y of Cancer 4.2.7.2.686 [place] [facility] - [phone] [facility] 408 Branch 2020-11-22 2020-11-22 Outpatient Nick [facility] [id number] Univers 15:30:00 15:30:00 ORPHEUS ity of [facility] 2020-11-20 2020-11-20 Orders Doctor KELLY 1.2.840.114 [id number] Univers 00:00:00 00:00:00 Only Unassigned, ARMAND 350.1.13.10 ity of [facility] 4.2.7.2.686 Juan as [phone] [facility] 009 Branch 2020-11-19 2020-11-19 Outpatient [facility] [id number] Univers 11:15:00 11:15:00 ORPHEUS ity of [facility] 2020-11-12 2020-11-12 Patient Deepika Ramirez Anne 1.2.840.114 [id number] Univers 00:00:00 00:00:00 Outreach E Narayanan 350.1.13.10 i [place] [phone] [address] 2020-11-11 2020-11-[address] [facility] 1.2.840.114 [id number] Univers 00:00:00 00:00:00 [facility] 350.1.13.10 it[place] - [id number] [address] 2020-11-05 2020-11-05 Telephone [facility] 1.2.840.114 [id number] Univers 00:00:00 00:00:00 SPECIALTY 350.1.13.10 ity of C[place]2.7.2.[place] AT [phone] [address] 2020-11-01 2020-11-01 Patient Deepika Ramirez Anne 1.2.840.114 [id number] Univers 00:00:00 00:00:00 Outreach E Narayanan 350.1.13.10 i [place] [phone] [address] 2020-10-31 2020-10-31 Transition Anne Damon 1.2.840.114 [id number] 00:00:00 00:00:00 of Care Lynda Narayanan 350.1.13.10 [place] [id number] [facility] 2020-10-31 2020-10-31 Transition Anne Damon 1.2.840.114 802 [id number] Univers 00:00:00 00:00:00 of Care Lynda Narayanan 350.1.13.10 ity [place].2.[place] [phone] [address] 2020-10-24 2020-10-30 [facility] [place] 1.2.840.114 8 [id number] 13:38:00 19:38:00 Encounter [place] 350.1.13.10 Hospital 4.2.7.2.686 [id number] [id number] 2020-10-24 2020-10-30 [facility] [place] 1.2.840.114 [id number] [facility] 13:38:00 19:38:00 Encounter Armand 350.1.13.10 ity of [facility] 4.2.7.2.686 Juan [place] [phone] [place] [address] Branch 2020-10-24 2020-10-30 Inpatient X [facility] JASIEL [id number] [facility] 13:38:00 19:38:00 ity of [facility] 2020-10-21 2020-10-21 Transition Anne Damon 1.2.840.114 [id number] 00:00:00 00:00:00 of Care Lynda Narayanan 350.1.13.10 [place] 4.2.7.2.686 [id number] [facility] 2020-10-21 2020-10-21 Transition Anne Damon 1.2.840.114 [id number] Univers 00:00:00 00:00:00 of Care Lynda Narayanan 350.1.13.10 ity of [place].2.7.2.[place] [phone] [facility] 403 Branch 2020-10-14 2020-10-19 [facility] 1.2.840.114 7 [id number] 05:48:00 15:50:00 Encounter [place] 350.1.13.10 Hospital 4.2.7.2.686 [id number] 099 2020-10-14 2020-10-19 [facility] 1.2.840.114 7 [id number] [facility] 05:48:00 15:50:00 Encounter [place] 350.1.13.10 ity of [facility] 4.2.7.2.686 Juan as [phone] [facility] 099 Branch 2020-10-16 2020-10-16 Patient Deepika Ramirez 1.2.840.114 [id number] 00:00:00 00:00:00 Outreach E Narayanan 350.1.13.10 [place] 4.2.7.2.686 [id number] 403 2020-10-16 2020-10-16 Patient Deepika Ramirez 1.2.840.114 [id number] [facility] 00:00:00 00:00:00 Outreach E Anrayanan 350.1.13.10 i ty [place].2.[place] [phone] [address] 2020-10-14 2020-10-14 Orders Doctor LETICIA 1.2.840.114 [id number] 00:00:00 00:00:00 Only Unassigned, ARMAND 350.1.13.10 [place] [facility] [phone] [facility] 2020-10-14 2020-10-14 Orders Doctor LETICIA 1.2.840.114 [id number] [facility] 00:00:00 00:00:00 Only Unassigned, ARMAND 350.1.13.10 ity of [place] [facility] 4.2.7.2.686 Juan as [phone] [address] 2020 2020 Laboratory Only, [facility] 1.2.840.114 7 [id number] 14:56:46 15:11:46 Only Test [place] 350.1.13.10 [place] 4.2.7.2.686 [place] [phone] [facility] 2020 2020 Laboratory Only, Adc Test [facility] 1.2.840. 114 [id number] [facility] 14:56:46 15:11:46 Only Phatak, Darren [place] 350.1.13.10 ity of [place] 4.2.7.2.[place] [phone] [address] 2020 2020 Outpatient R [facility] [id number] Univers 14:45:00 14:45:00 ity of [facility] 2020-10-07 2020-10-07 Patient Deepika Ramirez 1.2.840.114 [id number] 00:00:00 00:00:00 Outreach E Narayanan 350.1.13.10 [place] 4.2.7.2.686 [id number] [facility] 2020-10-07 2020-10-07 Patient Deepika Ramirze 1.2.840.114 79 [id number] Univers 00:00:00 00:00:00 Outreach E Narayanan 350.1.13.10 i ty of [place].2.7.2.686 [place] [phone] [facility] 403 [place] 2020-10-01 2020-10-02 [facility] 1.2.840.114 [id number] Univers 23:00:00 01:14:00 Ebony Tigist Abernathy 350.1.13.10 ity of [place] 4.2.7.2.686 [place] [phone] [facility] 084 [place] 2020-10-01 2020-10-01 Transition Anne Damon 1.2.840.114 [id number] Univers 00:00:00 00:00:00 of Care Lynda Foleyy 350.1.13.10 ity of [place].2.7.2.[place] [phone] [address] 2020-09-30 2020-09-30 Telephone [facility] 1.2.840.114 [id number] Univers 00:00:00 00:00:00 Health 350.1.13.10 it y of [place].2.[place].2.[place] - [phone] Med ica[address] 2020-09-27 2020-09-27 Office [facility] 1.2.840.114 [id number] Univers 09:20:41 09:35:41 Visit Health 350.1.13.10 it y of Cancer 4.2.7.2.686 [facility] - [phone] Med ica[address] 2020-09-27 2020-09-27 Outpatient R [facility] [id number] Univers 09:30:00 09:30:00 ity of [facility] 2020-09-24 2020-09-24 Telephone [facility] 1.2.840.114 [id number] Univers 00:00:00 00:00:00 Health 350.1.13.10 it y of [place] 4.2.7.2.686 [place] [facility] [phone] [facility] 408 Branch 2020-09-19 2020-09-19 Transition Anne Damon 1.2.840.114 [id number] Univers 00:00:00 00:00:00 of Care Lynda Narayanan 350.1.13.10 ity of [place] 4.2.7.2.686 [place] [phone] [facility] 403 Branch 2020-09-19 2020-09-19 Patient Deepika Ramirez 1.2.840.114 [id number] Univers 00:00:00 00:00:00 Outreach E Narayanan 350.1.13.10 i ty of [place] 4.2.7.2.686 [place] [phone] [facility] 403 Branch 2020-09-13 2020-09-18 [facility] 1.2.840.1 14 [id number] Univers 10:29:00 17:07:00 Encounter Roby Jean 350.1.13.10 ity of [place] 4.2.7.2.686 [place] [phone] [facility] 081 Branch 2020-09-17 2020-09-17 Patient Deepika Ramirez 1.2.840.114 [id number] Univers 00:00:00 00:00:00 Outreach E Narayanan 350.1.13.10 i ty of [place] 4.2.7.2.686 [place] [phone] [place] [address] Branch 2020-09-16 2020-09-16 Patient Deepika Ramirez 1.2.840.114 [id number] Univers 00:00:00 00:00:00 Outreach E Narayanan 350.1.13.10 i ty of [place] 4.2.7.2.686 [place] [phone] [place] [address] Branch 2020-09-16 2020-09-16 Patient Alfredo, Anne 1.2.840.114 [id number] Univers 00:00:00 00:00:00 Outreach Mercedez Barlow Narayanan 350.1.13.10 ity of [place] 4.2.7.2.686 [place] [phone] [address] 2020-09-13 2020-09-13 Patient Deepika Ramirez 1.2.840.114 [id number] Univers 00:00:00 00:00:00 Outreach E Narayanan 350.1.13.10 i ty of [place] 4.2.7.2.686 [place] [id number] [address] 2020-09-12 2020-09-12 Transition Anne Damon 1.2.840.114 [id number] Univers 00:00:00 00:00:00 of Care Lynda Narayanan 350.1.13.10 ity of [place] 4.2.7.2.[place] [id number] [address] 2020-09-12 2020-09-12 Patient Deepika Ramirezmamie 1.2.840.114 79 [id number] Univers 00:00:00 00:00:00 Outreach E Narayanan 350.1.13.10 i ty of [place] 4.2.7.2.686 [place] [id number] [address] 2020-09-12 2020-09-12 Patient Deepika Ramirezmamie 1.2.840.114 79 [id number] Univers 00:00:00 00:00:00 Outreach E Narayanan 350.1.13.10 i ty of [place] 4.2.7.2.686 [place] [phone] [address] 2020-09-12 2020-09-12 Patient Anne uFentes 1.2.840.114 [id number] Univers 00:00:00 00:00:00 Outreach Mercedez Barlow Narayanan 350.1.13.10 ity of [place] 4.2.7.2.[place] [phone] [address] 2020-09-12 2020-09-12 Telephone DANIEL Allen 1.2.840.114 [id number] Univers 00:00:00 00:00:00 [place] SPECIALTY 350.1.13.10 ity of CARE 4.2.7.2.686 [place] C[place] AT [phone] Nh maximus LARA 2 [facility] 2020-09-06 2020-09-06 Outpatient R [facility] [id number] Univers 11:00:00 11:00:00 ity of [facility] 2020-09-03 2020-09-03 Outpatient R [facility] [id number] Univers 11:00:00 11:00:00 ity of [facility] 2020-09-01 2020-09-01 Emergency [facility] 1.2.468.586 [id number] Univers 01:42:00 07:20:00 Shayla Abernathy 350.1.13.10 ity of [place] 4.2.7.2.686 [facility] [phone] [place] 395904 Branch 2020-08-29 2020-08-[address] [facility] 1.2.840.114 [id number] Univers 00:00:00 00:00:00 Mehrdad Alonso Health 350.1.13.10 ity of Cancer 4.2.7.2.686 [facility] - [phone] [facility] 188 Branch 2020-08-28 2020-08-28 Telephone [facility] 1.2.840.114 [id number] Univers 00:00:00 00:00:00 Health 350.1.13.10 it y of Cancer 4.2.7.2.686 [facility] - [phone] [facility] 408 Branch 2020-08-23 2020-08-23 Emergency [facility] 1.2.554.537 [id number] Univers 17:35:00 22:19:00 Matthias Abernathy 350.1.13.10 i ty of [place] 4.2.7.2.686 [facility] [phone] [facility] 084 Branch 2020-08-20 2020-08-20 Deepika CandelarioIT 1.2.840.114 [id number] Univers 11:14:50 12:08:13 Visit Person Daquan Acevedo HEALTH 350.1.13.10 ity of CLINICS 4.2.7.2.686 [facility] [phone] [facility] 188 Branch 2020-08-20 2020-08-20 Outpatient R [facility] [id number] Univers 11:00:00 11:00:00 ity of [facility] 2020-08-20 2020-08-20 Telephone [facility] 1.2.840.114 [id number] Univers 00:00:00 00:00:00 Health 350.1.13.10 it y of Cancer 4.2.7.2.686 [facility] - [phone] Med ica [facility] 408 Branch 2020-08-17 2020-08-18 Emergency [facility] 1.2.445.434 [id number] Univers 19:34:00 00:56:00 Shayla Abenrathy 350.1.13.10 ity of [place] 4.2.7.2.686 [facility] [phone] [facility] 084 Branch 2020-08-09 2020-08-09 Office [facility] 1.2.840.114 [id number] Univers 10:32:05 10:47:05 Visit Health 350.1.13.10 it y of Cancer 4.2.7.2.686 [facility] - [phone] [facility] 408 Branch 2020-08-09 2020-08-09 Outpatient R [facility] [id number] Univers 10:45:00 10:45:00 ity of [facility] 2020-08-09 2020-08-09 Orders Doctor LETICIA 1.2.840.114 [id number] Univers 00:00:00 00:00:00 Only Unassigned, ARMAND 350.1.13.10 ity of [place] [facility] 4.2.7.2.686 [facility] [phone] [facility] 009 Branch 2020-08-05 2020-08-05 Telephone [facility] 1.2.840.114 [id number] Univers 00:00:00 00:00:00 Health 350.1.13.10 it y of Cancer 4.2.7.2.686 [facility] - [phone] Med ica [facility] 408 Branch 2020-08-02 2020-08-02 Transition Anne Ramirez 1.2.840.114 [id number] Univers 00:00:00 00:00:00 of Care Destinee Narayanan 350.1.13.10 i ty of [place].2.7.2.[place] [phone] [facility] 403 Branch 2020-07-23 2020-08-01 Hospital Mercedez Negro Naun Wilkinsonnie 1.2.840 .114 [id number] Univers 11:58:00 17:47:00 Encounter Shayla Munoz 350.1.13.10 ity of MengFarooq [facility] 4.2.7.2.686 [facility] [phone] Medical 1 Branch 2020-07-23 2020-07-23 Emergency [facility] ERT [id number] Univers 11:58:00 11:58:00 MERCEDEZ scott [facility] 2020-07-23 2020-07-23 Orders Doctor KELLY 1.2.840.114 [id number] Univers 00:00:00 00:00:00 Only Unassigned, ARMAND 350.1.13.10 ity of [place] [facility] 4.2.7.2.686 Juan as [phone] [facility] 009 Branch 2019-12-09 2019-12-09 Emergency E MHSE MHSE 7503 MH 09:16:00 09:16:[address] [facility] [address] [facility] 2019-06-15 2019-06-15 Emergency [facility] 1.2.840.114 [id number] Univers 11:46:39 15:08:00 Mary Jo Abernathy 350.1.13.10 ity of [place].2.7.2.[place] [phone] [place] [id number] [place] Results Test Description Test Time Test Comments Results Result [facility] e Comments - CT ABD PELVIS 2021-03-20 W/CONT 13:55:00 [facility] CAROLYNLANDName: PALMER EDEN : 1975 Sex: F Name: EDEN CHAKRABORTY : 1975 Age/S: 45 / F [address] [facility] Unit #: [id number] Loc: [place] [address] Phys: Lemuel Villanueva DO Acct: [id number] Dis Date: Status: REG ER PHONE #: [phone] Exam Date: 03/20/2021 1335 FAX #: Reason: epigastric pain, h/o Crohn's, SBO EXAMS: CPT: [id number] CT ABD PELVIS W/CONT 71818 Site ID: [id number] CLINICAL HISTORY: Epigastric abdominal [...] CHAKRABORTY : 1975 Age/S: 45 / F [address] [facility] Unit #: [id number] Loc: [place] [address] Phys: Lemuel Villanueva DO Acct: [id number] Dis Date: Status: REG ER PHONE #: [phone] Exam Date: 03/20/2021 1335 FAX #: Reason: epigastric pain, h/o Crohn's, SBO EXAMS: CPT: [id number] CT ABD PELVIS W/CONT 94283 <Continued> CC: Lemuel Villanueva DO Technologist:Miryam Anthony, RT(R)(CT) CTDI: DLP: Trnscb Date/Time: 03/20/2021 (5511) [email or web address] Orig Print D/T: S: 03/20/2021 (8515) PAGE 2 Signed Report - XR RIBS UNI 2021-03-20 W/CXR 3+V LT 13:47:00 [facility] 1975 Sex: F Name: EDEN CHAKRABORTY [facility] : 1975 Age/S: 45 / F [address] [address] Unit #: [id number] Loc: [place] [address] Phys: Lemuel Villanueva DO Acct: [id number] Dis Date: Status: REG ER PHONE #: [phone] Exam Date: 03/20/2021 1231 FAX #: Reason: left rib pain EXAMS: CPT: [id number] XR RIBS UNI W/CXR 3+[place] [address] Fluoro Time: DAP (Gy m2): Air Kerma [...] CHAKRABORTY : 1975 Age/S: 45 / F [address] [address] Unit #: [id number] Loc: [place] [address] Phys: RichLemuel oWod DO Acct: [id number] Dis Date: Status: REG ER PHONE #: [phone] Exam Date: 03/20/2021 1231 FAX #: Reason: left rib pain EXAMS: CPT: [id number] XR RIBS UNI W/CXR 3+[place] [address] Fluoro Time: DAP (Gy m2): Air Kerma (mGy): <Continued> Technologist: Cady Pendleton, RT(R)(MR) Trnscb Date/Time: 03/20/2021 (1347) [email or web address] Orig Print D/T: S: 03/20/2021 (4679) PAGE 2 Signed Report HCG SERUM 2021-03-20 12:51:00 Test Item Value Reference Range Interpretation Comme nts HCG SERUM (test code = HCG) < 1 mi-IU/ML 0-6 N 0 - 6 NOT > 6 SUGGESTIVE OF EARLY RISES TWO FOLD EVERY 2 DAYS; SUGGEST R ECONFIRMING AFTER 2 DAYS. 150,000-2 00,[address] TRIMESTER 10,000 - 50,000 2ND & 3RD TRIMESTER BASIC METABOLIC [id number] 12:49:00 Test Item Value Reference Range Interpretation [...] 8.5-10.1 N Completed by Nursing: LETICIAHEPATIC FUNCTION [id number] 12:49:00 Test Item Value Reference Range Interpretation [...] N code = ALKP) Completed by Nursing: [id number] 12:49:00 Test Item Value Reference Range Interpretation Comments LIPASE (test code = LIP) 77 Unit/L 114-286 L Completed by Nursing: [id number] 12:49:00 Test Item Value Reference Range Interpretation [...] tarun yby method. Completed by Nursing: NOPROTHROMBIN [id number] 12:25:00 Test Item Value Reference Range Interpretation Comments PT PATIENT (test code = PTP) 10.7 SECONDS 9.3-12.9 N INTERNATIONAL NORMAL RATIO 0.96 INR Unit 0.8-1.2 N (test code = INR) CBC W/AUTO [id number] 12:23:00 Test Item Value Reference Range Interpretation [...] = MDIFF) UA RFLX MICR CULT IF [id number] 12:18:00 Test Item Value Reference Range Interpretation [...] URINE: CLEAN CATCHUA RFLX MICR CULT IF [id number] 12:18:00 Test Item Value Reference Range Interpretation [...] RiskForSepsis-no oth srcSOURCE OF URINE: CLEAN CATCHLACTIC [id number] 11:59:00 Test Item Value Reference Range Interpretation Comments LACTIC ACID (test code = LACT) 1.3 mmol/L 0.4-2.0 N - XR KNEE 3 V [id number] 21:05:00 [facility] : 1975 Sex: F Patient Name: EDEN CHAKRABORTY Unit No: [id number] EXAMS: CPT CODE: [id number] XR KNEE 3 V RT [id number] Location: H3 Right knee x-ray exam: 3 views, 01/10/21 CLINICAL HISTORY: Atraumatic knee pain. Comparison exam: None of the knee Knee joint is fairly well-maintained. No erosion identified. No abnormal jointeffusion. No abnormal calcific deposition. The overlying soft tissues appear unremarkable. IMPRESSION: Fairly unremarkable exam t 210 Reported and signed by: Karina Huff MD CC: Timur Middleton MD; Karissa AWAD Technologist: Daquan Armas (RT) Transcrpt Date/Tm/Trnsp: 01/10/2021 (2104) [email or web address] Orig Print D/T: S: 01/10/2021 (2107) [facility] NAME: EDEN CHAKRABORTY [address] [address] PHYS: [place] [address] : 1975 AGE: 45 SEX: F LOC: [place] PHONE #: [phone] EXAM DATE: 01/10/2021 STATUS: REG ER FAX #: [phone] RADIOLOGY NO: [id number] PAGE 1 Signed ReportCBC WITH DIFF 2020-10-29 13:24:00 Test Item Value Reference Range Interpretation Comments WBC (test code = See_Comment [Automated 9590-2) message] The sy stem which generated this result transmitted reference range : 4.30 - 11.10 10*3/?L. The reference range was not used to interpret this result as normal/abnormal . RBC (test code = See_Comment L [Automated 419-8) message] The sy stem which generated this [...] (test code = 51.6 fL 39-49.9 H 98639-6) RDW-CV (test code = 14.3 % 12-15.5 788-0) PLT (test code = See_Comment H [Automated 777-3) message] The sy stem which generated this result transmitted reference range : 166 - 358 10*3/ ?L. The reference r madelin was not used to interpret this result as normal/abnormal . MPV (test code = 8.9 fL 9.5-12.9 L 32747-4) NRBC/100 WBC (test See_Comment [Automat ed code = 1138630204) message] The system which generated this result transmitted reference range : 0.0 - 10.0 /100 WBCs. The refer ence range was not u sed to interpret th is result as normal/abnormal . NRBC x10^3 (test code <0.01 See_Comment [Auto mated = 2429398831) message] The s ystem which generated this result transmitted reference range : 10*3/?L. The reference range was not used to interpret this result as normal/abnormal . GRAN MAT (NEUT) % 43.5 % (test code = 770-8) IMM GRAN % (test code 0.50 % = 4915643868) LYMPH % (test code = 36.9 % 736-9) MONO % (test code = 11.5 % 5905-5) EOS % (test code = 6.5 % 713-8) BASO % (test code = 1.1 % 706-2) GRAN MAT x10^3(ANC) 2.80 10*3/uL 1.88-7.09 (test code = 0194959504) IMM GRAN x10^3 (test 0.03 10*3/uL 0-0.06 code = 9997040968) LYMPH x10^3 (test code 2.37 10*3/uL 1.32-3.29 = 731-0) MONO x10^3 (test code 0.74 10*3/uL 0.33-0.92 = 742-7) EOS x10^3 (test code = 0.42 10*3/uL 0.03-0.39 H 711-2) BASO x10^3 (test code 0.07 10*3/uL 0.01-0.07 = 704-7) Lab Interpretation Abnormal (test code = 14617-5) [facility] (NA, K, CL, CO2, GLUCOSE, BUN, CREATININE, CA)2020-10-29 10:07:00 Test Item Value Reference Range Interpretation Comments NA (test code = 133 mmol/L 135-145 L 9437027421) K (test code = 4.3 mmol/L 3.5-5 6221252236) CL (test code = 102 mmol/L 98-108 3996257040) CO2 TOTAL (test code = 28 mmol/L 23-31 0140322084) AGAP (test code = 2-16 5761863116) BUN (test code = 3 mg/dL 7-23 L 4123229371) GLUCOSE (test code = 103 mg/dL 70-110 5352522549) CREATININE (test code = 0.62 mg/dL 0.5-1.04 2059644030) CALCIUM (test code = 8.4 mg/dL 8.6-10.6 L 2068299751) eGFR Calculation mL/min/1.73m2 (Non-) (test code = 0790683266) eGFR Calculation mL/min/1.73m2 () (test code = 9453534750) RAUDEL (test code = RAUDEL) Association of [...] tests). Lab Interpretation Abnormal (test code = 87142-8) [facility] [id number] 10:07:00 Test Item Value Reference Range Interpretation Comments MAGNESIUM (test code = 9011423622) 1.5 mg/dL 1.7-2.4 L Lab Interpretation (test code = Abnormal 43037-5) [facility]stURINE [id number] 13:44:00 Test Item Value Reference Range Interpretation Comments URINE CULTURE (test < 10,000 CFU/mL mixed code = 630-4) aerobic organisms - suggests endogenous microbial contamination [facility]stPhosphorus Llkto3720-40-37 10:45:00 Test Item Value Reference Range Interpretation Comments PHOSPHORUS (test code = 8874806688) 3.4 mg/dL 2.5-5 Lab Interpretation (test code = Normal 38496-3) [facility] Metabolic Panel (NA, K, CL, CO2, GLUCOSE, BUN, CREATININE, CA)2020-10-28 10:45:00 Test Item Value Reference Range Interpretation Comments NA (test code = 135 mmol/L 135-145 4779746538) K (test code = 4.0 mmol/L 3.5-5 4422630971) CL (test code = 101 mmol/L 98-108 7727529660) CO2 TOTAL (test code = 31 mmol/L 23-31 4206680953) AGAP (test code = 2-16 3797659367) BUN (test code = 4 mg/dL 7-23 L 0753847335) GLUCOSE (test code = 100 mg/dL 70-110 9747542525) CREATININE (test code = 0.70 mg/dL 0.5-1.04 0284623972) CALCIUM (test code = 8.3 mg/dL 8.6-10.6 L 7304679239) eGFR Calculation mL/min/1.73m2 (Non-) (test code = 6512930039) eGFR Calculation mL/min/1.73m2 () (test code = 6470437692) RAUDEL (test code = RAUDEL) Association of [...] tests). Lab Interpretation Abnormal (test code = 11334-6) [facility] [id number] 10:45:00 Test Item Value Reference Range Interpretation Comments MAGNESIUM (test code = 8712936120) 1.8 mg/dL 1.7-2.4 Lab Interpretation (test code = Normal 07828-4) [facility] WITH [id number] 10:13:00 Test Item Value Reference Range Interpretation Comments WBC (test code = See_Comment [Automated 0064-2) message] The sy stem which generated this result transmitted reference range : 4.30 - 11.10 10*3/?L. The reference range was not used to interpret this result as normal/abnormal . RBC (test code = See_Comment L [Automated 085-6) message] The sy stem which generated this [...] RDW-SD (test code = 48.4 fL 39-49.9 64413-2) RDW-CV (test code = 13.8 % 12-15.5 788-0) PLT (test code = See_Comment H [Automated 777-3) message] The sy stem which generated this result transmitted reference range : 166 - 358 10*3/ ?L. The reference r madelin was not used to interpret this result as normal/abnormal . MPV (test code = 9.1 fL 9.5-12.9 L 43271-9) NRBC/100 WBC (test See_Comment [Automat ed code = 9411241902) message] The system which generated this result transmitted reference range : 0.0 - 10.0 /100 WBCs. The refer ence range was not u sed to interpret th is result as normal/abnormal . NRBC x10^3 (test code <0.01 See_Comment [Auto mated = 9757167262) message] The s ystem which generated this result transmitted reference range : 10*3/?L. The reference range was not used to interpret this result as normal/abnormal . GRAN MAT (NEUT) % 55.3 % (test code = 770-8) IMM GRAN % (test code 0.40 % = 0324590847) LYMPH % (test code = 29.4 % 736-9) MONO % (test code = 9.4 % 5905-5) EOS % (test code = 5.1 % 713-8) BASO % (test code = 0.4 % 706-2) GRAN MAT x10^3(ANC) 3.83 10*3/uL 1.88-7.09 (test code = 9098957052) IMM GRAN x10^3 (test 0.03 10*3/uL 0-0.06 code = 9138736888) LYMPH x10^3 (test code 2.04 10*3/uL 1.32-3.29 = 731-0) MONO x10^3 (test code 0.65 10*3/uL 0.33-0.92 = 742-7) EOS x10^3 (test code = 0.35 10*3/uL 0.03-0.39 711-2) BASO x10^3 (test code 0.03 10*3/uL 0.01-0.07 = 704-7) Lab Interpretation Abnormal (test code = 07256-5) [facility] Acark9828-97-62 07:50:00 Test Item Value Reference Range Interpretation Comments MAGNESIUM (test code = 9736404652) 1.1 mg/dL 1.7-2.4 L Lab Interpretation (test code = Abnormal 34508-9) [facility]AL[facility]IS2020-12-13 07:50:00 Test Item Value Reference Range Interpretation Comments APPEARANCE (test code = Hazy Clear A 6165219294) COLOR (test code = Yellow Yellow 2577494951) PH (test code = 4.8-8.0 9934183666) SP GRAVITY (test code = 1.003-1.030 1743118155) GLU U QUAL (test code = Normal Normal 0830739335) BLOOD (test code = Negative Negative 6604123670) KETONES (test code = Negative Negative 4446987526) PROTEIN (test code = Negative Negative 2887-8) UROBILIN (test code = Normal Normal 6484323866) BILIRUBIN (test code = Negative Negative 6246189201) NITRITE (test code = Negative Negative 4885821733) LEUK CHELY (test code = 25/uL Negative A 0993201339) RBC/HPF (test code = See_Comment [Autom ated message] 7387729683) The system [employer] generated this result transmitted ref erence range: 0 - 3 HP F. The reference range was not used to int erpret this result as normal/abnormal . WBC/HPF (test code = See_Comment [Autom ated message] 6671330735) The system [employer] generated this result transmitted ref erence range: 0 - 5 HP F. The reference range was not used to int erpret this result as normal/abnormal . BACTERIA (test code = Negative Negative 3004831050) MUCOUS (test code = Slight Negative LPF A 8114483671) SQ EPITH (test code = See_Comment [Auto mated message] 5701057958) The system [employer] generated this result transmitted ref erence range: <=2 HPF. The reference range was not used to int erpret this result as normal/abnormal . Lab Interpretation (test Abnormal code = 45039-3) [facility] Metabolic Panel (NA, K, CL, CO2, GLUCOSE, BUN, CREATININE, CA)2020-10-27 07:45:00 Test Item Value Reference Range Interpretation Comments NA (test code = 135 mmol/L 135-145 4169777512) K (test code = 3.2 mmol/L 3.5-5 L 8606803509) CL (test code = 99 mmol/L 98-108 3573416678) CO2 TOTAL (test code = 35 mmol/L 23-31 H 7734007000) AGAP (test code = 2-16 L 3233756348) BUN (test code = 3 mg/dL 7-23 L 6786506797) GLUCOSE (test code = 104 mg/dL 70-110 7158755618) CREATININE (test code = 0.66 mg/dL 0.5-1.04 3028490647) CALCIUM (test code = 7.5 mg/dL 8.6-10.6 L 3665546344) eGFR Calculation mL/min/1.73m2 (Non-) (test code = 5570532398) eGFR Calculation mL/min/1.73m2 () (test code = 7649973272) RAUDEL (test code = RAUDEL) Association of [...] tests). Lab Interpretation Abnormal (test code = 81631-8) [facility] with Fuwhjlsurbjz3626-79-67 07:24:00 Test Item Value Reference Range Interpretation [...] RDW-SD (test code = 46.6 fL 39-49.9 36261-4) RDW-CV (test code = 13.7 % 12-15.5 788-0) PLT (test code = See_Comment H [Automated 777-3) message] The sy stem which generated this result transmitted reference range : 166 - 358 10*3/ ?L. The reference r madelin was not used to interpret this result as normal/abnormal . MPV (test code = 9.1 fL 9.5-12.9 L 58122-5) NRBC/100 WBC (test See_Comment [Automat ed code = 3879778327) message] The system which generated this result transmitted reference range : 0.0 - 10.0 /100 WBCs. The refer ence range was not u sed to interpret th is result as normal/abnormal . NRBC x10^3 (test code <0.01 See_Comment [Auto mated = 9188254292) message] The s ystem which generated this result transmitted reference range : 10*3/?L. The reference range was not used to interpret this result as normal/abnormal . GRAN MAT (NEUT) % 52.0 % (test code = 770-8) IMM GRAN % (test code 0.50 % = 9375537003) LYMPH % (test code = 34.7 % 736-9) MONO % (test code = 8.6 % 5905-5) EOS % (test code = 3.7 % 713-8) BASO % (test code = 0.5 % 706-2) GRAN MAT x10^3(ANC) 3.19 10*3/uL 1.88-7.09 (test code = 8671903647) IMM GRAN x10^3 (test 0.03 10*3/uL 0-0.06 code = 5278013314) LYMPH x10^3 (test code 2.13 10*3/uL 1.32-3.29 = 731-0) MONO x10^3 (test code 0.53 10*3/uL 0.33-0.92 = 742-7) EOS x10^3 (test code = 0.23 10*3/uL 0.03-0.39 711-2) BASO x10^3 (test code 0.03 10*3/uL 0.01-0.07 = 704-7) Lab Interpretation Abnormal (test code = 71556-1) [facility] ONLY COVID LTLMIGJRRQZVJL3170-96-23 00:32:00COVID DMT InterpretationInterpretation/Recommendations: Molecular NAAT Tests for Active Infection with the SARS-CoV-2 Virus: This patient has a history of testing negative on multiple occasions for wfxHQNT-TcJ-2 virus that causes COVID-19 illness, with no [...] upon aggregate COVID-19 test results pooled from [facility]. They apply to the following tests offered at [facility] and assume the acceptable specimen type(s) were used: A. Tests for the Identification of SARS-CoV-2 RNA (Molecular NAAT Tests): ?- SARS-CoV-2 PCR assays including PantherAptima, [place] Fusion, Villarreal RealTime, and Yovia Xpert Xpress. ?- SARS-CoV-2 Rapid ID NOW by the ID NOW assay. ? B. Tests for the Identification of SARS-CoV-2 Antibodies: ?- Chemiluminescent immunoassays including Access SARS-CoV-2 IgM (DXI 600), VITROS Yhnk-GAEG-VrB-2 IgG (Vitros 5600and Vitros 3600), and Villarreal SARS-CoV-2 IgG (BAGGAGE [place]ORTER [place] I System). These interpretations are autopopulated into [employer] based on computerized algorithms matching an interpretation code to the patient's setof test results, and a clinical pathologist evaluates the comments for accuracy. However, these comments do not consider testing a patient may have had outside of the [facility] system. If results for COVID-19 infection [...] lavage fluid (BAL), tracheal aspirate, etc.). ? [facility] LABORATORY SERVICESCOVID JsqiwyxJEBK-KkK-8 Rapid ID NOW (no units) ? ? Date ? Value ? 10/24/2020 ? Not Detected ? ? ? 2020 ? Not Detected ? ? ? 09/25/2020 ? Not Detected ? ? ? 09/10/2020 ? Not Detected ?? ? 09/04/2020 ? Not Detected ? ? ? 08/17/2020 ? Not Detected ? ? ? 07/23/2020 ? Not Detected ? [facility] LABORATORY SERVICESUnHouston [facility] HospitalCBC with Differential 2020-10-26 11:58:00 [...] RDW-SD (test code = 47.2 fL 39-49.9 35339-5) RDW-CV (test code = 14.5 % 12-15.5 788-0) PLT (test code = See_Comment H [Automated 777-3) message] The sy stem which generated this result transmitted reference range : 166 - 358 10*3/ ?L. The reference r madelin was not used to interpret this result as normal/abnormal . MPV (test code = 10.1 fL 9.5-12.9 96320-6) NRBC/100 WBC (test See_Comment [Automat ed code = 1552236964) message] The system which generated this result transmitted reference range : 0.0 - 10.0 /100 WBCs. The refer ence range was not u sed to interpret th is result as normal/abnormal . NRBC x10^3 (test code <0.01 See_Comment [Auto mated = 2774727629) message] The s ystem which generated this result transmitted reference range : 10*3/?L. The reference range was not used to interpret this result as normal/abnormal . GRAN MAT (NEUT) % 50.3 % (test code = 770-8) IMM GRAN % (test code 0.50 % = 0303534613) LYMPH % (test code = 36.9 % 736-9) MONO % (test code = 7.6 % 5905-5) EOS % (test code = 4.2 % 713-8) BASO % (test code = 0.5 % 706-2) GRAN MAT x10^3(ANC) 2.76 10*3/uL 1.88-7.09 (test code = 8631297945) IMM GRAN x10^3 (test 0.03 10*3/uL 0-0.06 code = 3029478170) LYMPH x10^3 (test code 2.03 10*3/uL 1.32-3.29 = 731-0) MONO x10^3 (test code 0.42 10*3/uL 0.33-0.92 = 742-7) EOS x10^3 (test code = 0.23 10*3/uL 0.03-0.39 711-2) BASO x10^3 (test code 0.03 10*3/uL 0.01-0.07 = 704-7) Lab Interpretation Abnormal (test code = 03011-1) [facility]st[facility] Jrhrd1225-02-49 04:43:00 Test Item Value Reference Range Interpretation Comments MAGNESIUM (test code = 5731141346) 1.0 mg/dL 1.7-2.4 L Lab Interpretation (test code = Abnormal 12134-3) [facility] Metabolic Panel (NA, K, CL, CO2, GLUCOSE, BUN, CREATININE, CA)2020-10-26 04:43:00 Test Item Value Reference Range Interpretation Comments NA (test code = 136 mmol/L 135-145 0653831046) K (test code = 2.8 mmol/L 3.5-5 LL 5947311816) CL (test code = 97 mmol/L 98-108 L 9187921805) CO2 TOTAL (test code = 35 mmol/L 23-31 H 3408866506) AGAP (test code = 2-16 8640409413) BUN (test code = 3 mg/dL 7-23 L 4319047473) GLUCOSE (test code = 116 mg/dL 70-110 H 4792977188) CREATININE (test code = 0.81 mg/dL 0.5-1.04 7276099664) CALCIUM (test code = 7.2 mg/dL 8.6-10.6 L 1968359597) eGFR Calculation mL/min/1.73m2 (Non-) (test code = 7313514281) eGFR Calculation mL/min/1.73m2 () (test code = 9766396806) RAUDEL (test code = RAUDEL) Association of [...] tests). Lab Interpretation Abnormal (test code = 94077-6) [facility]stPhosphorus Nfbjv1273-64-85 04:35:00 Test Item Value Reference Range Interpretation Comments PHOSPHORUS (test code = 7717128529) 3.0 mg/dL 2.5-5 Lab Interpretation (test code = Normal 86220-5) [facility]stCB with Hnwmexfatonb0952-71-00 04:11:00 Test Item Value Reference Range Interpretation Comments WBC (test code = See_Comment [Automated 5490-2) message] The sy stem which generated this result transmitted reference range : 4.30 - 11.10 10*3/?L. The reference range was not used to interpret this result as normal/abnormal . RBC (test code = See_Comment L [Automated 389-8) message] The sy stem which generated this [...] RDW-SD (test code = 45.6 fL 39-49.9 27282-6) RDW-CV (test code = 13.4 % 12-15.5 788-0) PLT (test code = See_Comment H [Automated 777-3) message] The sy stem which generated this result transmitted reference range : 166 - 358 10*3/ ?L. The reference r madelin was not used to interpret this result as normal/abnormal . MPV (test code = 9.2 fL 9.5-12.9 L 76229-9) NRBC/100 WBC (test See_Comment [Automat ed code = 8749179593) message] The system which generated this result transmitted reference range : 0.0 - 10.0 /100 WBCs. The refer ence range was not u sed to interpret th is result as normal/abnormal . NRBC x10^3 (test code <0.01 See_Comment [Auto mated = 9497511953) message] The s ystem which generated this result transmitted reference range : 10*3/?L. The reference range was not used to interpret this result as normal/abnormal . GRAN MAT (NEUT) % 55.9 % (test code = 770-8) IMM GRAN % (test code 0.40 % = 1942548578) LYMPH % (test code = 31.9 % 736-9) MONO % (test code = 8.4 % 5905-5) EOS % (test code = 3.1 % 713-8) BASO % (test code = 0.3 % 706-2) GRAN MAT x10^3(ANC) 3.80 10*3/uL 1.88-7.09 (test code = 4759900607) IMM GRAN x10^3 (test 0.03 10*3/uL 0-0.06 code = 4341862710) LYMPH x10^3 (test code 2.17 10*3/uL 1.32-3.29 = 731-0) MONO x10^3 (test code 0.57 10*3/uL 0.33-0.92 = 742-7) EOS x10^3 (test code = 0.21 10*3/uL 0.03-0.39 711-2) BASO x10^3 (test code <0.03 0.01-0.07 = 704-7) Lab Interpretation Abnormal (test code = 74546-0) [facility]stCT ABDOMEN PELVIS W EQZZMWJG4123-62-34 14:39:02 1. ?Postsurgical changes of recent ileostomy [...] TECHNIQUE AND FINDINGS: [facility] [...] AND FINDINGS: [facility] [address] [facility] with [facility] name, wassubmitted for [...] report.[facility]stCOVID-[facility] (ID NOW RAPID TESTING)2020-10-25 01:48:00 Test Item Value Reference Range Interpretation Comments SARS-CoV-2 Rapid ID NOW Not Detected Not Detected (test code = 39462-8) RAUDEL (test code = RAUDEL) ID NOW COVID-19 Assay is an isothermal nucleic acid amplification test intended for the qualitative detection of nucleic acid from SARS-CoV-2 viral RNA in nasopharyngeal (LAYER OUT PLATE GLASS) specimens. It is used under Emergency Use [...] acid from SARS-CoV-2 viral RNA in nasopharyngeal (LAYER OUT PLATE GLASS) specimens. It is used under Emergency Use [...] indicated. Lab Interpretation Normal (test code = 34038-9) [facility] METABOLIC PANEL (NA, K, CL, CO2, GLUCOSE, BUN, CREATININE, CA)2020-10-24 23:16:00 Test Item Value Reference Range Interpretation Comments NA (test code = 137 mmol/L 135-145 6898450387) K (test code = 3.5 mmol/L 3.5-5 4330972591) CL (test code = 101 mmol/L 98-108 8621716118) CO2 TOTAL (test code = 31 mmol/L 23-31 1035987487) AGAP (test code = 2-16 2953827749) BUN (test code = 5 mg/dL 7-23 L 8758264993) GLUCOSE (test code = 80 mg/dL 70-110 7585549930) CREATININE (test code = 0.57 mg/dL 0.5-1.04 4933115165) CALCIUM (test code = 7.4 mg/dL 8.6-10.6 L 3281978774) eGFR Calculation mL/min/1.73m2 (Non-) (test code = 0061017300) eGFR Calculation mL/min/1.73m2 () (test code = 9190668611) RAUDEL (test code = RAUDEL) Association of [...] tests). Lab Interpretation Abnormal (test code = 43491-1) [facility] WITH [id number] 23:09:00 Test Item Value Reference Range Interpretation Comments WBC (test code = See_Comment [Automated 6990-2) message] The sy stem which generated this [...] RDW-SD (test code = 46.5 fL 39-49.9 04112-3) RDW-CV (test code = 13.4 % 12-15.5 788-0) PLT (test code = See_Comment H [Automated 777-3) message] The sy stem which generated this result transmitted reference range : 166 - 358 10*3/ ?L. The reference r madelin was not used to interpret this result as normal/abnormal . MPV (test code = 9.4 fL 9.5-12.9 L 86449-5) NRBC/100 WBC (test See_Comment [Automat ed code = 2234713510) message] The system which generated this result transmitted reference range : 0.0 - 10.0 /100 WBCs. The refer ence range was not u sed to interpret th is result as normal/abnormal . NRBC x10^3 (test code <0.01 See_Comment [Auto mated = 9459863562) message] The s ystem which generated this result transmitted reference range : 10*3/?L. The reference range was not used to interpret this result as normal/abnormal . GRAN MAT (NEUT) % 54.7 % (test code = 770-8) IMM GRAN % (test code 0.50 % = 5624124785) LYMPH % (test code = 35.9 % 736-9) MONO % (test code = 6.3 % 5905-5) EOS % (test code = 2.3 % 713-8) BASO % (test code = 0.3 % 706-2) GRAN MAT x10^3(ANC) 3.37 10*3/uL 1.88-7.09 (test code = 7978192917) IMM GRAN x10^3 (test 0.03 10*3/uL 0-0.06 code = 0324016891) LYMPH x10^3 (test code 2.21 10*3/uL 1.32-3.29 = 731-0) MONO x10^3 (test code 0.39 10*3/uL 0.33-0.92 = 742-7) EOS x10^3 (test code = 0.14 10*3/uL 0.03-0.39 711-2) BASO x10^3 (test code <0.03 0.01-0.07 = 704-7) Lab Interpretation Abnormal (test code = 22083-3) [facility]stCLOSTRIDIUM DIFFICILE [id number] 17:18:00 Test Item Value Reference Range Interpretation Comments Clostridioides (Clostridium) Negative Negative difficile (test code = 50654-6) Lab Interpretation (test code = Normal 28104-4) [facility] (NA, K, CL, CO2, GLUCOSE, BUN, CREATININE, CA)2020-10-17 23:42:00 Test Item Value Reference Range Interpretation Comments NA (test code = 135 mmol/L 135-145 9165877565) K (test code = 4.0 mmol/L 3.5-5 8824440735) CL (test code = 105 mmol/L 98-108 4699750987) CO2 TOTAL (test code = 22 mmol/L 23-31 L 9309324832) AGAP (test code = 2-16 6512601958) BUN (test code = 8 mg/dL 7-23 9437923350) GLUCOSE (test code = 127 mg/dL 70-110 H 8072823260) CREATININE (test code = 0.96 mg/dL 0.5-1.04 1400018777) CALCIUM (test code = 8.7 mg/dL 8.6-10.6 9298138811) eGFR Calculation mL/min/1.73m2 (Non-) (test code = 1675970936) eGFR Calculation mL/min/1.73m2 () (test code = 6609694101) RAUDEL (test code = RAUDEL) Association of [...] tests). Lab Interpretation Abnormal (test code = 32092-2) [facility] PATHOLOG[facility] [id number] 19:12:00 Test Item Value Reference Range Interpretation Comments Case Report (test code Surgical Pathology ? ? = [id number]) ?Case: [id number] ? Authorizing Provider: ?Darren Chun MD ?Collected: ? 10/14/2020 0901 ?Ordering Location: ? ? [facility] OR ? Received: ?10/14/2020 1106 ? Department ? Pathologist: ? Marian Gr MD ? Specimens: ? A) - STOMA, Ileostomy ? B) - COLON, Ileocolic anastamosis ? Final Diagnosis (test [id number] code = [id number]) FuZzEwMzNcZnRuYmpcdWMx MVuozdCkTXtbk3AaR6JjMv AwMFxhbnNpXGRlZmxhbmcx ZNElYEX2jfHiZNMfORuvCL VdCCfpOv4nsKPnfEblDyQb RZJpn9gavgEIlxzgjOn8i1 muTZWsNvS1cCDpEYtlT7bz urCnyUWlAXCgNSi7nK40PU FvmI9jiFEdUDltraFvIhP3 FWakAPHrNwN5ARRlwRLlVP MsV9wvCGCdAUqyUPHhBPvw fXLrIMZ9bWson1X7kFVztU HhqWilFwJuFkHkLLARv0Ll SZv4mBtaX0RrDCVuWnA8uW QgUGFyYWdyYXBoIEZvbnQ7 gD15YFpcwqO4pBQcz6Ogz0 0kc396qX5zdWNtKWM4HFVx OQCwlHVuZLXiNKD0WCUwmF VeC2thQRbnOK3dzpscZWY9 MFxtYXJndDcyMFxtYXJnYj EdcLZjERGjoNjdRQflg123 DXH5PmJdZA4vU2Ssd6R0xD 9maXRcZGVmdGFiNzIwXGZv eg2leZBqDZsjx5DxQPD5hf Y8tERexMDjSLXzSA79Zrsg l7XuMrhrSGK5VSYajfYyv2 Tks9fgOeIymlPoV4ntK7Ag ZHJoZWFkXHBnYnJkcmZvb3 Eqz1KcgFBswZt7p4mbMCEa XEUonCrjk0yvEWJ9OYRmM5 N7qXIrm5ydOAzbMZBecEC0 ynGtSPIbwVJtB6ZnfQ6aGA dvGZ3ymdn8t0bhYiAcOR5n dxwce2ukAEvcHQSfHBY3Qk IuNKMgq8VlbejxGeHye3Cn pTApWOitR90yq871PYSslw HwW3avqOMdhzhgmRTdqroq AOrcrcU1WAClLNBxHXmjXB YxXGZzMjBcbGFuZzEwMzNc aGljaFxmMVxkYmNoXGYxXG fiA7qtQfLyHbFxBSmqTTXh JF4zK44LX71xGRxFJE0SWI 6FBJUERU9VNOzlENkZWOTH X654JJPqmhIwFHNqCS2mQa WAHQmVMKWQUY8jAD7KCEjG QNFNMVZHJ4UGTDQYBNRCKX CDY6AZTBSXPQWLShdBV2BR D76nOM6SRXTBXdCGE4TfGD QZY0tKWccuyTDtVXWwCIPr GMPzV75JN5jMWRHBIXCDFX HZOGkSXO1XPQ3KLEthHICh eYReFLCjTEWYDB1DXBLTZX WZO53NCNDnMI4HQ3YCVJ0F JFAsBDFXH4gJYF1YSujzNT IgICAgICAtIEJFTklHTiBD L2tGXsAUAzDkAHkOBLcsMV dKZ8IOWVlKLAmsD16EN5SN QMSAGRYAW0XXXAekY70DK8 pRJTGVSRCLVXUPWKqVLQ0P O9bNA9kjPMLuXECwPNScUK QXSnTJDE5US2RDS8kcWAB5 f2sswFQrOKXpyAMkAjRfGL QiJEGru0pyUTOjqSDzTnSq MzNcZnRuYmpcdWMxXGRlZm Xko1dkb177mYUjz8qzEATe FwC4zABkKEVykPyqqth5rM pkDqQkOZXjg2rtdbImPvZw PUNkSXOkMRUdqTGdZ630IQ CwWKdrt1cbj1OaQVBwzBNz i9Z3WTHPAVosRdXkU602g6 mun1hvunUqvSM6NEYaJIX1 EExourEamvT1ONjxwVAuGb R0QPmxjdUrTCjqtuPxikSx Ecy9BRKxG798UQY4pCztq6 wqDEP6YSBrXDFuUypgJc9y aGFoP482DJKpJBYDTYAjqC r7WNYchoMzmkOisJRGz728 S200j3nuNRQduiRuiZxTco jbl3ncK377MLLgiPNbwkYq DxUdIIUvnPRieQQ6OJIoIX 0lmovvLOejROlcBNYunpG4 MLNlmHAbC1TyGSAjFQ6rxg poPYG5KNrlRBNaVHB5RbQz URUbd7Sbvck1AnJstd9dvv 15GIM7c3OsoFkdUNR3QKN3 LdYbPz2xjFNdIXOmJS8mRh OqvNIcEXZzvp52lGteISpa iaIhsV7zNmIcNIAxbKAoCN AxTS4blCYmWWTgxJ1qbqcv XHBnYnJkcmhlYWRccGdicm SvMc4mhZxqQZY3PBncG3rx hK3jObE0GZcyZ3etkD7pRW u7VXgwaOH4XWQluH3rCZ3b czzaz4zuUJzvJAdpOMYkxg O4ckT4ZCGwwSBwU6GxhE6p RAWiIX5xhphnl2erBUA5GU nnISHnZLK3WbDqRPSlv0Pl lhu4AnNsu4VjkAGvSYkyY5 2ss621KEYcqjRrH6ocuYNz sgpzqZEptyjoFKltjtQ2DF FsXHBsYWluXGYxXGZzMjBc bGFuZzEwMzNcaGljaFxmMV kiCfYlSWOeTElqC5odChMu O2GrIFQxEoRemKIuQAaqxP M7DDVvNRKqp14eoTm5OTAg zxkme3EoKKEsiZHykRZigU 2enaPca0aiQDPqDDVzQYEk V4ZtWWK7pCLtDZCciMMujS M3BM1dumOyHH9eJUKoCxem cmVzaWRlbnRzLCBmZWxsb3 qkMG9eMRPlwSmqkB5tbCV3 XREyx2tptQMepJNps8pbq8 UgbmFtZShzKSBtYXkgYXBw HHSbCF1wVASncXTnvyWmh4 Z8GxvlwBPlblfqLmhqtgE6 XYofdvukBMLoXYfwW2nsVd NvKSXzmEzhMycvq5PuVQMx XGZzMjhccGFyfX0= Clinical Information Ileostomy care [Z43.2] (test code = 2877891551) Gross Description (test p9omsZInMPPyjGIwEeUiWA code = 9833719446) YmPQBjd7nkPDUxhBBmSnJn MzNcZnRuYmpcdWMxXGRlZm Bqw9qix125fBVae1fiWPAg YiL6uGQmNRKiaKJeS261TV OwQLuaw6hxb9KjJJYckHSp i7I4CUVRkvkcwOt0bIcaH5 8rm6M2BypqV7giTIVmQGVg V3WxUS1uMYKiClt0WND3DR J7JONaLLByV6FeVP3sVXTe tDBuWZi0x5ybzHscDIEgON U7h5ipUKziksCjYU3hvo4y hXd4x9biedUpFEXyVWTpnG XBXROzI2IhbBflSk5duBh7 iPbeQoukCWD2Ldx2BE1krd 30yqx9wXdgDJGlqswkBdP4 BRhrFVMevlbiEWd6TBqxLQ PsbCJaOIFjuLTnM8FaUNmp MS7bhda7YaJhGH2rvpoyGS ahSOWsYSC2OsYfFHMxt0Dd nrknMkKbtj4opu96YHN9a6 LfuBxvOXY4MBH5HnPpMp5m pQDvFYVvBF9rJpQpdBApWT Aomo95dYufMThbgxFioM8n AlCpBCVuvZNxXFXhQU0nsY AcZRQujL8kjrwtWIQxHzJg otlrVWRkwNabwlYbZp9ncT mwTKJ4WNefB0zgwM8nKbE7 HIcnU2oyyH2xTYa5QVunmG K7UTNirU0kBU4mwfydy0qt UBO9ZEdwRYXchqA5yuHyFX JfvVJmW1MunY44NsApxSHi Q8EoxX1aAJwiXUGijdz7Mc ZkVe9vvOUwmDO5XXlzYeej YWdlXHBnbmNvbnRccGduZG VjXHBsYWluXHBsYWluXGYw FLMjEePqwFckaGztdE3bUe AfDjQvATfoFL5pEIBjU4uh mAShFFTnTSZjW7zhFjBviU 9jaFxmMVxmczIwIFNwZWNp wJMvCPAaerDkIRq9LJXcWs Qqz9lojBZaFBrnVID5rSZs aKR8jWSabNblJK3bfLRcQN BWZG21jBTmxzywMaQzTeTx zQnvh8IiQVKhaTHxs9XcaM byc4ImcLBbHODpRBAda30v eDX7jnLyAwBbwiOvbGRmu7 HwsCmhgAXtVFSvo33qz4Rb V1ilKL8be8l3kVAeRLJ8qo tuU0VijYzpt1T0hTJwGOSa kK4yNUXfujLxMYWkkVUhcJ NkDQYxc4F3QWDcP06rhfSu x7JaFk82TBchXQAdQTMxzS ZyjiUnQJ0fhVxlOQ9oRPHt NiBjbSBkaWFtZXRlcikuIC ZXrTXwy9UiKI14P53wJRNh zQG0jGLag3JokHEckUNzCH EbtxDoxQAcsZVztH7bO4Sv jX73BX9do3p2rKMbUMLtvI 0aoxnnKO3mZHWngHGheXQb EBHnbI0pSVHeJbNeaWluLA YaRYMpsTTfuRWxtKZoX7xu MQjrBFMigH07ILPtZG9fBC CqMOWrjTUzgH5jibOkyaNj dXMxRQCzunQ6XTYynI6bBA VucmVtYXJrYWJsZSBpbnRl p2KrsgGtVY05U87nJF4hEq LnqcKeJH42FBUhzqLkZvSy dI50eJmnh07qh0ItpOJazL WbNJwcbTgqevBqQYP5gZ1i pcKqecEcw5XwbBx1mJVfGJ FzIEExXHBsYWluXGYwXGZz MjBcbGFuZzEwMzNcaGljaF laBZvfZhVqEPWpUNuwV4jh UwVpNcKdMNp7ZNCbDLQqLm z2POPnEZltXHKbYSTuCiDo bGFuZzEwMzNcaGljaFxmMV shOnCwPVBlBIkyF4tnViTl EwExEZVAAl7krMKnCLZgns ZCdNDgrU4pevZBGPOsG5Sk dmVkIGZyZXNoIGxhYmVsZW Eem9z7wXG6nGUvpDE5qLGo gAauBQ7juATdIAWSSC57hC PamsubXbNgQwAnkVkdc0Qa OAQqrDVzV66mpVTmDY8ka1 RxlZ0dgZClLSTsYEChr29i fHB6egZgIyQexaMalpVcT9 NoWUYwp1XvnHHlfODhWeQf iuBzoJ8gh5BnTBIxr6wkpG P2oJXkGK98yGFrwYebYXE4 TFFkNQHyZYLqgO9cXKr9Ns LneDBpWuKzbYZmKvhsS61d VfEpT1PmqBzkYG6iemxwvo BrSIXeTBPkyOJdj3SeUKTx YSEhyyFdidD9iqQneTZoc9 PorOKmB23wx24sKlWjfoZv lPbyGDbcmNPai6WwRUCxZM LrhrXhYH53EjDaMNttESwe oBMvh5PcQJnnegMeENVnhX ibuFMtwNDmq0g5gL3dIJsh bHltcGhvaWQgaHlwZXJwbG GsxNSrMHEoCFCiLK2xQU8d JWNpgYJik4SjxRI6lKIjWH TqG9Reg33zKRJjRIJygLFc eMZ5WSXvZLAgKsTgsXgkxT 8zZpIaXuPhQQgiEG9dDIMh I3lxgRQwPVMcHOUqU0ceYb SijT0obDcxEGalvxOxHUJ7 EfUtPAckMLKzeKhosF3cOv EeKrKkUJlnNG3kRZLxA0vd uUDyZTRbFDKfF9xjUuJyiN 9jaFxmMVxmczIwIEIyLlxw YXJccGFyXHBhcmRccGxhaW 5cZjBcZnMyNFxwbGFpblxm MVxmczIwXGxhbmcxMDMzXG hvO4fbIdHoPXFywLyhWYdi c8OxGHCfODCvUgAyQRA5iF WWyH25QQSsALCeQHTzlWls uT6fjIA5PJEmc2wskJJciF lccGFyfQ== Embedded Images (test code = 3992247981) [facility] MSSA Screen by PCR, [id number] 21:21:00 Test Item Value Reference Range Interpretation Comments MSSA Screen by Phill BERMUDEZ (test code Negative Negative = 29403-9) MRSA/MSSA Positive? (test code = No No [id number]) Lab Interpretation (test code = Normal 50992-3) [facility]stUrinalysis2020-11-18 06:06:00 Test Item Value Reference Range Interpretation Comments APPEARANCE (test code = Cloudy Clear A 4639526187) COLOR (test code = Kathleen Yellow A 3779621642) PH (test code = 4.8-8.0 3577501803) SP GRAVITY (test code = 1.003-1.030 4699025853) GLU U QUAL (test code = Normal Normal 3990626352) BLOOD (test code = 1+ Negative A 3422040890) KETONES (test code = 5 mg/dL Negative A 8745851457) PROTEIN (test code = 100 mg/dL Negative A 2887-8) UROBILIN (test code = 2.0 mg/dL Normal A 8303026451) BILIRUBIN (test code = Negative Negative 3107614312) NITRITE (test code = Negative Negative 5227313844) LEUK CHELY (test code = Negative Negative 2064820344) RBC/HPF (test code = See_Comment H [Autom ated message] 6047702034) The system [employer] generated this result transmit carl reference range : 0 - 3 HPF. The refe rence range was not u sed to interpret th is result as normal/abnormal . WBC/HPF (test code = See_Comment [Autom ated message] 9283731670) The system [employer] generated this result transmit carl reference range : 0 - 5 HPF. The refe rence range was not u sed to interpret th is result as normal/abnormal . BACTERIA (test code = Moderate Negative A 1167685712) MUCOUS (test code = Marked Negative LPF A 5806131078) SQ EPITH (test code = HPF 3177436286) CA OXALATE (test code = See_Comment H [Au tomated message] 2402717709) The system [employer] generated this result transmit carl reference range : <=1 HPF. The refere nce range was not u sed to interpret th is result as normal/abnormal . HYAL CAST (test code = See_Comment H [Aut omated message] 0611356035) The system [employer] generated this result transmit carl reference range : <=2 LPF. The refere nce range was not u sed to interpret th is result as normal/abnormal . GRAN CASTS (test code = See_Comment H [Au tomated message] 0313796584) The system [employer] generated this result transmit carl reference range : <=1 LPF. The refere nce range was not u sed to interpret th is result as normal/abnormal . Lab Interpretation (test Abnormal code = 30978-8) [facility]stHepatic Function Panel (ALB, T.PRO, BILI T, BU/BC, ALT, AST, ALK PHOS)2020-10-02 05:46:00 Test Item Value Reference Range Interpretation Comments TOTAL BILI (test code = 2669974980) 1.0 mg/dL 0.1-1.1 BILI UNCON (test code = 7962614449) 0.6 mg/dL 0.1-1.1 BILI CONJ (test code = 3626715191) 0.0 mg/dL 0-0.3 T PROTEIN (test code = 7593666527) 9.9 g/dL 6.3-8.2 H ALBUMIN (test code = 4522519030) 5.4 g/dL 3.5-5 H ALK PHOS (test code = 0694736820) 153 U/L 34-122 H ALTv (test code = 1742-6) 62 U/L 5-35 H AST(SGOT) (test code = 3660959279) 51 U/L 13-40 H Lab Interpretation (test code = Abnormal 69842-3) [facility]stLipase [id number] 05:46:00 Test Item Value Reference Range Interpretation Comments LIPASE (test code = 9229278686) 117 U/L 0-220 Lab Interpretation (test code = Normal 04034-8) [facility]stBasic Metabolic Panel (NA, K, CL, CO2, GLUCOSE, BUN, CREATININE, CA)2020-10-02 05:46:00 Test Item Value Reference Range Interpretation Comments NA (test code = 135 mmol/L 135-145 5556300592) K (test code = 4.4 mmol/L 3.5-5 2740304530) CL (test code = 102 mmol/L 98-108 5432015288) CO2 TOTAL (test code = 19 mmol/L 23-31 L 2927790716) AGAP (test code = 2-16 9468726287) BUN (test code = 19 mg/dL 7-23 0430386227) GLUCOSE (test code = 135 mg/dL 70-110 H 5196297365) CREATININE (test code = 1.19 mg/dL 0.5-1.04 H 3443304876) CALCIUM (test code = 11.3 mg/dL 8.6-10.6 H 8843479482) eGFR Calculation mL/min/1.73m2 (Non-) (test code = 0632514549) eGFR Calculation mL/min/1.73m2 () (test code = 6418140689) RAUDEL (test code = RAUDEL) Association of [...] tests). Lab Interpretation Abnormal (test code = 48655-5) [facility] with [id number] 05:34:00 Test Item Value Reference Range Interpretation Comments WBC (test code = See_Comment [Automated 1458-2) message] The sy stem which generated this [...] RDW-SD (test code = 40.6 fL 39-49.9 23113-5) RDW-CV (test code = 11.9 % 12-15.5 L 788-0) PLT (test code = See_Comment H [Automated 777-3) message] The sy stem which generated this result transmitted reference range : 166 - 358 10*3/ ?L. The reference r madelin was not used to interpret this result as normal/abnormal . MPV (test code = 9.9 fL 9.5-12.9 83192-7) NRBC/100 WBC (test See_Comment [Automat ed code = 4333430956) message] The system which generated this result transmitted reference range : 0.0 - 10.0 /100 WBCs. The refer ence range was not u sed to interpret th is result as normal/abnormal . NRBC x10^3 (test code <0.01 See_Comment [Auto mated = 2282188818) message] The s ystem which generated this result transmitted reference range : 10*3/?L. The reference range was not used to interpret this result as normal/abnormal . GRAN MAT (NEUT) % 38.8 % (test code = 770-8) IMM GRAN % (test code 0.20 % = 8455003187) LYMPH % (test code = 51.7 % 736-9) MONO % (test code = 7.4 % 5905-5) EOS % (test code = 0.9 % 713-8) BASO % (test code = 1.0 % 706-2) GRAN MAT x10^3(ANC) 2.27 10*3/uL 1.88-7.09 (test code = 1849230437) IMM GRAN x10^3 (test <0.03 0-0.06 code = 4140568373) LYMPH x10^3 (test code 3.02 10*3/uL 1.32-3.29 = 731-0) MONO x10^3 (test code 0.43 10*3/uL 0.33-0.92 = 742-7) EOS x10^3 (test code = 0.05 10*3/uL 0.03-0.39 711-2) BASO x10^3 (test code 0.06 10*3/uL 0.01-0.07 = 704-7) Lab Interpretation Abnormal (test code = 85697-4) [facility]stHCV BY [id number] 17:03:00 Test Item Value Reference Range Interpretation Comments HCV by Real-Time Not Detected Not detected IU/mL PCR (test code = 9848608900) RAUDEL (test code = Dex[employer] Interactive RealTime HCV RAUDEL) reverse sap plant maintenance consultant-polymerase chain reaction(RT-PCR) assay is used. It is [...] [facility]stCOMP. METABOLIC PANEL ([id number])2020-09-16 15:03:00 Test Item Value Reference Range Interpretation Comments NA (test code = 135 mmol/L 135-145 5398404321) K (test code = 4.4 mmol/L 3.5-5 2941059221) CL (test code = 111 mmol/L 98-108 H 0807236163) CO2 TOTAL (test code = 21 mmol/L 23-31 L 4262866087) AGAP (test code = 2-16 2305285012) BUN (test code = 11 mg/dL 7-23 6654416503) GLUCOSE (test code = 115 mg/dL 70-110 H 4943985838) CREATININE (test code = 0.83 mg/dL 0.5-1.04 9770613173) TOTAL BILI (test code = 0.5 mg/dL 0.1-1.0 8704989788) CALCIUM (test code = 8.3 mg/dL 8.6-10.6 L 2302121896) T PROTEIN (test code = 5.4 g/dL 6.3-8.2 L 7460117201) ALBUMIN (test code = 2.8 g/dL 3.5-5 L 6324666805) ALK PHOS (test code = 71 U/L 34-122 7825597461) ALTv (test code = 31 U/L 5-35 1742-6) AST(SGOT) (test code = 31 U/L 13-40 9433471085) eGFR Calculation mL/min/1.73m2 (Non-) (test code = 5073531389) eGFR Calculation mL/min/1.73m2 () (test code = 8695373548) RAUDEL (test code = RAUDEL) Association of [...] tests). Lab Interpretation Abnormal (test code = 02644-6) [facility]. METABOLIC PANEL (96697)2020-09-15 11:19:00 Test Item Value Reference Range Interpretation Comments NA (test code = 135 mmol/L 135-145 4011800829) K (test code = 3.9 mmol/L 3.5-5 8652601299) CL (test code = 104 mmol/L 98-108 6565257195) CO2 TOTAL (test code = 27 mmol/L 23-31 7526237531) AGAP (test code = 2-16 5729391429) BUN (test code = 15 mg/dL 7-23 7640848938) GLUCOSE (test code = 153 mg/dL 70-110 H 2549232146) CREATININE (test code = 0.91 mg/dL 0.5-1.04 1637758779) TOTAL BILI (test code = 0.4 mg/dL 0.1-1.4 1175101926) CALCIUM (test code = 9.2 mg/dL 8.6-10.6 3703190482) T PROTEIN (test code = 7.2 g/dL 6.3-8.2 5228387779) ALBUMIN (test code = 3.8 g/dL 3.5-5 5356851264) ALK PHOS (test code = 106 U/L 34-122 5109660268) ALTv (test code = 43 U/L 5-35 H 1742-6) AST(SGOT) (test code = 28 U/L 13-40 8429208122) eGFR Calculation mL/min/1.73m2 (Non-) (test code = 2062968349) eGFR Calculation mL/min/1.73m2 () (test code = 1369876891) RAUDEL (test code = RAUDEL) Association of [...] tests). Lab Interpretation Abnormal (test code = 28195-7) [facility]stHEPATIC FUNCTION PANEL ([id number]) (ALB,T.PRO,BILI T,BU/BC,ALT,AST,ALK PHOS)2020-09-14 19:50:00 Test Item Value Reference Range Interpretation Comments TOTAL BILI (test code = 7249560282) 0.5 mg/dL 0.1-1.1 BILI UNCON (test code = 3316535017) 0.4 mg/dL 0.1-1.1 BILI CONJ (test code = 0880398711) 0.0 mg/dL 0-0.3 T PROTEIN (test code = 7880887486) 6.5 g/dL 6.3-8.2 ALBUMIN (test code = 8841519776) 3.4 g/dL 3.5-5 L ALK PHOS (test code = 3214857026) 95 U/L 34-122 ALTv (test code = 1742-6) 45 U/L 5-35 H AST(SGOT) (test code = 1509622380) 31 U/L 13-40 Lab Interpretation (test code = Abnormal 19849-2) [facility]stCREATINE [id number] 18:49:00 Test Item Value Reference Range Interpretation Comments CK (test code = 1254329001) 44 U/L 33-194 Lab Interpretation (test code = Normal 58919-0) [facility] (NA, K, CL, CO2, GLUCOSE, BUN, CREATININE, CA)2020-09-14 17:05:00 Test Item Value Reference Range Interpretation Comments NA (test code = 136 mmol/L 135-145 7069657337) K (test code = 3.9 mmol/L 3.5-5 3509867935) CL (test code = 104 mmol/L 98-108 4087742814) CO2 TOTAL (test code = 27 mmol/L 23-31 6613353531) AGAP (test code = 2-16 5296354413) BUN (test code = 17 mg/dL 7-23 6895896189) GLUCOSE (test code = 114 mg/dL 70-110 H 6638671111) CREATININE (test code = 0.84 mg/dL 0.5-1.04 6649035032) CALCIUM (test code = 8.9 mg/dL 8.6-10.6 8112603494) eGFR Calculation mL/min/1.73m2 (Non-) (test code = 0511034114) eGFR Calculation mL/min/1.73m2 () (test code = 0334550728) RAUDEL (test code = RAUDEL) Association of [...] tests). Lab Interpretation Abnormal (test code = 19785-2) [facility]stHEW[facility]ALT[facility] SURFACE [id number] 16:44:00 Test Item Value Reference Range Interpretation Comments HBsAB (test code = Negative 6812385293) HBsAb mIU/mL Semi-Quantitative (test code = 4511871505) RAUDEL (test code = Interpretation: RAUDEL) ?Hepatitis B Surface Antibody ? Negative - Patient is considered to be not immune to infection with HBV. ? ? Positive - Anti-HBs detected at greater than or equal to 12 mIU/mL. ?Patient is considered to be immune to infection with HBV. ? [facility]stHE[facility]ALT[facility] SURFACE [id number] 16:27:00 Test Item Value Reference Range Interpretation Comments HBsAg Semi-Quantitative (test code = Negative Negative 5195-3) [facility]stMAGNESIUM2020-10-31 04:05:00 Test Item Value Reference Range Interpretation Comments MAGNESIUM (test code = 6562804363) 1.6 mg/dL 1.7-2.4 L Lab Interpretation (test code = Abnormal 96992-2) [facility]stTROPONIN [id number] 20:02:00 Test Item Value Reference Range Interpretation Comments TROPONIN I (test <0.012 See_Comment [Automated code = 7845304750) message] The system which generated this result [...] ? Lab Interpretation Normal (test code = 19730-6) [facility]. METABOLIC PANEL (65616)2020-09-13 17:43:00 Test Item Value Reference Range Interpretation Comments NA (test code = 139 mmol/L 135-145 9492875888) K (test code = 4.5 mmol/L 3.5-5 0203935651) CL (test code = 99 mmol/L 98-108 2995355338) CO2 TOTAL (test code = 31 mmol/L 23-31 6560808907) AGAP (test code = 2-16 3709338692) BUN (test code = 14 mg/dL 7-23 4946620511) GLUCOSE (test code = 115 mg/dL 70-110 H 8469350173) CREATININE (test code = 1.31 mg/dL 0.5-1.04 H 0854253941) TOTAL BILI (test code = 1.4 mg/dL 0.1-1.1 H 3478940772) CALCIUM (test code = 10.6 mg/dL 8.6-10.6 0200177564) T PROTEIN (test code = 9.1 g/dL 6.3-8.2 H 6871219361) ALBUMIN (test code = 4.7 g/dL 3.5-5 5133844667) ALK PHOS (test code = 160 U/L 34-122 H 6507518583) ALTv (test code = 84 U/L 5-35 H 1742-6) AST(SGOT) (test code = 51 U/L 13-40 H 3538632606) eGFR Calculation mL/min/1.73m2 (Non-) (test code = 4362548774) eGFR Calculation mL/min/1.73m2 () (test code = 0714307761) RAUDEL (test code = RAUDEL) Association of [...] tests). Lab Interpretation Abnormal (test code = 34409-5) [facility]stLIPASE2020-10-30 17:43:00 Test Item Value Reference Range Interpretation Comments LIPASE (test code = 7005330090) 88 U/L 0-220 Lab Interpretation (test code = Normal 67078-3) [facility]stCB WITH [id number] 17:31:00 Test Item Value Reference Range Interpretation [...] RDW-SD (test code = 44.9 fL 39-49.9 52442-7) RDW-CV (test code = 12.9 % 12-15.5 788-0) PLT (test code = See_Comment H [Automated 777-3) message] The sy stem which generated this result transmitted reference range : 166 - 358 10*3/ ?L. The reference r madelin was not used to interpret this result as normal/abnormal . MPV (test code = 9.7 fL 9.5-12.9 09728-2) NRBC/100 WBC (test See_Comment [Automat ed code = 7040897354) message] The system which generated this result transmitted reference range : 0.0 - 10.0 /100 WBCs. The refer ence range was not u sed to interpret th is result as normal/abnormal . NRBC x10^3 (test code <0.01 See_Comment [Auto mated = 3200213631) message] The s ystem which generated this result transmitted reference range : 10*3/?L. The reference range was not used to interpret this result as normal/abnormal . GRAN MAT (NEUT) % 80.0 % (test code = 770-8) IMM GRAN % (test code 0.50 % = 3210214313) LYMPH % (test code = 10.4 % 736-9) MONO % (test code = 7.1 % 5905-5) EOS % (test code = 1.5 % 713-8) BASO % (test code = 0.5 % 706-2) GRAN MAT x10^3(ANC) 7.11 10*3/uL 1.88-7.09 H (test code = 7491462843) IMM GRAN x10^3 (test 0.04 10*3/uL 0-0.06 code = 4336725082) LYMPH x10^3 (test code 0.92 10*3/uL 1.32-3.29 L = 731-0) MONO x10^3 (test code 0.63 10*3/uL 0.33-0.92 = 742-7) EOS x10^3 (test code = 0.13 10*3/uL 0.03-0.39 711-2) BASO x10^3 (test code 0.04 10*3/uL 0.01-0.07 = 704-7) Lab Interpretation Abnormal (test code = 46165-2) [facility] [id number] 17:08:57Overall, bowel gas pattern is felt to [...] appliance projects over the right lower quadrant.[facility]. METABOLIC PANEL (79075)2020-09-01 07:34:00 Test Item Value Reference Range Interpretation Comments NA (test code = 137 mmol/L 135-145 3360605788) K (test code = 3.6 mmol/L 3.5-5 8765362265) CL (test code = 100 mmol/L 98-108 9979569611) CO2 TOTAL (test code = 26 mmol/L 23-31 0229412312) AGAP (test code = 2-16 6406858943) BUN (test code = 19 mg/dL 7-23 1453531840) GLUCOSE (test code = 171 mg/dL 70-110 H 5029959207) CREATININE (test code = 0.98 mg/dL 0.5-1.04 0206593684) TOTAL BILI (test code = 0.8 mg/dL 0.1-1.8 1452815627) CALCIUM (test code = 10.4 mg/dL 8.6-10.6 3039058164) T PROTEIN (test code = 8.9 g/dL 6.3-8.2 H 0712528557) ALBUMIN (test code = 4.9 g/dL 3.5-5 9208967073) ALK PHOS (test code = 109 U/L 34-122 1676088343) ALTv (test code = 46 U/L 5-35 H 1742-6) AST(SGOT) (test code = 26 U/L 13-40 7306750672) eGFR Calculation mL/min/1.73m2 (Non-) (test code = 8851799665) eGFR Calculation mL/min/1.73m2 () (test code = 6522530869) RAUDEL (test code = RAUDEL) Association of [...] tests). Lab Interpretation Abnormal (test code = 52189-5) [facility] 07:[facility] Test Item Value Reference Range Interpretation Comments LIPASE (test code = 7445769624) 103 U/L 0-220 Lab Interpretation (test code = Normal 94950-3) [facility] WITH [id number] 07:19:00 Test Item Value Reference Range Interpretation Comments WBC (test code = See_Comment [Automated 8983-2) message] The sy stem which generated this result transmitted reference range : 4.30 - 11.10 10*3/?L. The reference range was not used to interpret this result as normal/abnormal . RBC (test code = See_Comment [Automated 267-9) message] The sy stem which generated this [...] RDW-SD (test code = 40.4 fL 39-49.9 09868-2) RDW-CV (test code = 12.1 % 12-15.5 788-0) PLT (test code = See_Comment [Automated 777-3) message] The sy stem which generated this result transmitted reference range : 166 - 358 10*3/ ?L. The reference r madelin was not used to interpret this result as normal/abnormal . MPV (test code = 10.7 fL 9.5-12.9 53144-8) NRBC/100 WBC (test See_Comment [Automat ed code = 6379672241) message] The system which generated this result transmitted reference range : 0.0 - 10.0 /100 WBCs. The refer ence range was not u sed to interpret th is result as normal/abnormal . NRBC x10^3 (test code <0.01 See_Comment [Auto mated = 0099755543) message] The s ystem which generated this result transmitted reference range : 10*3/?L. The reference range was not used to interpret this result as normal/abnormal . GRAN MAT (NEUT) % 77.7 % (test code = 770-8) IMM GRAN % (test code 0.20 % = 1346212466) LYMPH % (test code = 18.3 % 736-9) MONO % (test code = 3.5 % 5905-5) EOS % (test code = 0.0 % 713-8) BASO % (test code = 0.3 % 706-2) GRAN MAT x10^3(ANC) 4.63 10*3/uL 1.88-7.09 (test code = 4317988388) IMM GRAN x10^3 (test <0.03 0-0.06 code = 4081325626) LYMPH x10^3 (test code 1.09 10*3/uL 1.32-3.29 L = 731-0) MONO x10^3 (test code 0.21 10*3/uL 0.33-0.92 L = 742-7) EOS x10^3 (test code = <0.03 0.03-0.39 L 711-2) BASO x10^3 (test code <0.03 0.01-0.07 = 704-7) Lab Interpretation Abnormal (test code = 68695-2) [facility] 02:48:00 Test Item Value Reference Range Interpretation Comments LIPASE (test code = 8770665334) 171 U/L 0-220 Lab Interpretation (test code = Normal 34557-0) [facility] WITH [id number] 02:25:00 Test Item Value Reference Range Interpretation Comments WBC (test code = See_Comment [Automated message] 3636-2) The system [employer] generated this result transmitted ref erence range: 4.30 - 1 1.10 10*3/?L. The re ference range was not u sed to interpret this result as normal/abnor mal. RBC (test code = See_Comment [Automated message] 869-8) The system [employer] generated this result transmitted ref erence range: [...] RDW-SD (test code 42.3 fL 39-49.9 = 99891-8) RDW-CV (test code 12.1 % 12-15.5 = 788-0) PLT (test code = See_Comment [Automated message] 317-3) The system whic h generated this result transmitted ref erence range: 166 - 35 8 10*3/?L. The re ference range was not u sed to interpret this result as normal/abnor mal. MPV (test code = 11.0 fL 9.5-12.9 95501-3) NRBC/100 WBC (test See_Comment [Automat ed message] code = 4490597819) The syste m which generated this result transmitted ref erence range: 0.0 - 10 .0 /100 WBCs. The refer ence range was not u sed to interpret this result as normal/abnor mal. NRBC x10^3 (test <0.01 See_Comment [Automated message] code = 2725715453) The syste m which generated this result transmitted ref erence range: 10*3/?L. The reference range was not used to interpr et this result as normal/abnormal . GRAN MAT (NEUT) % 44.5 % (test code = 770-8) IMM GRAN % (test 0.20 % code = 5875193652) LYMPH % (test code 43.0 % = 736-9) MONO % (test code 9.5 % = 5905-5) EOS % (test code = 1.7 % 713-8) BASO % (test code 1.1 % = 706-2) GRAN MAT 2.35 10*3/uL 1.88-7.09 x10^3(ANC) (test code = 0902534983) IMM GRAN x10^3 <0.03 0-0.06 (test code = 4549159790) LYMPH x10^3 (test 2.27 10*3/uL 1.32-3.29 code = 731-0) MONO x10^3 (test 0.50 10*3/uL 0.33-0.92 code = 742-7) EOS x10^3 (test 0.09 10*3/uL 0.03-0.39 code = 711-2) BASO x10^3 (test 0.06 10*3/uL 0.01-0.07 code = 704-7) [facility] PEL[facility] W [id number] 03:50:29Addendum by Rhett Harden MD on 08/17/2020 11:01 PM* * * * * * * * ADDENDUM: * * * * * * * * The finding regarding left breast nodule was discussed with Dr MunozHgeksslq58/3/2020 10:53 PM Preliminary Report Dictated by Resident: [...] report.[facility] (ID NOW RAPID TESTING) 2020-08-18 01:55:00 Test Item Value Reference Range Interpretation Comments SARS-CoV-2 Rapid ID NOW Not Detected Not Detected (test code = 98451-7) RAUDEL (test code = RAUDEL) ID NOW COVID-19 Assay is an isothermal nucleic acid amplification test intended for the qualitative detection of nucleic acid from SARS-CoV-2 viral RNA in nasopharyngeal (LAYER OUT PLATE GLASS) specimens. It is used under Emergency Use [...] indicated. Lab Interpretation Normal (test code = 04472-9) [facility]. METABOLIC PANEL (22219)2020-08-18 01:47:00 Test Item Value Reference Range Interpretation Comments NA (test code = 135 mmol/L 135-145 5524630501) K (test code = 4.1 mmol/L 3.5-5 7859745057) CL (test code = 96 mmol/L 98-108 L 5348170395) CO2 TOTAL (test code = 30 mmol/L 23-31 0841117307) AGAP (test code = 2-16 4871143075) BUN (test code = 17 mg/dL 7-23 8332196064) GLUCOSE (test code = 149 mg/dL 70-110 H 9602786556) CREATININE (test code = 1.21 mg/dL 0.5-1.04 H 1186029017) TOTAL BILI (test code = 0.7 mg/dL 0.1-1.7 1918471173) CALCIUM (test code = 10.5 mg/dL 8.6-10.6 9709338702) T PROTEIN (test code = 8.6 g/dL 6.3-8.2 H 3841483490) ALBUMIN (test code = 4.4 g/dL 3.5-5 5349415023) ALK PHOS (test code = 170 U/L 34-122 H 4905902424) ALTv (test code = 145 U/L 5-35 H 1742-6) AST(SGOT) (test code = 70 U/L 13-40 H 8483331607) eGFR Calculation mL/min/1.73m2 (Non-) (test code = 3811269614) eGFR Calculation mL/min/1.73m2 () (test code = 7227970318) RAUDEL (test code = RAUDEL) Association of [...] tests). Lab Interpretation Abnormal (test code = 31325-5) [facility]2020-10-04 01:47:00 Test Item Value Reference Range Interpretation Comments LIPASE (test code = 4423693344) 172 U/L 0-220 Lab Interpretation (test code = Normal 41033-0) [facility] WITH [id number] 01:34:00 Test Item Value Reference Range Interpretation [...] RDW-SD (test code = 41.1 fL 39-49.9 75432-5) RDW-CV (test code = 11.8 % 12-15.5 L 788-0) PLT (test code = See_Comment [Automated 777-3) message] The sy stem which generated this result transmitted reference range : 166 - 358 10*3/ ?L. The reference r madelin was not used to interpret this result as normal/abnormal . MPV (test code = 10.4 fL 9.5-12.9 82452-4) NRBC/100 WBC (test See_Comment [Automat ed code = 5065492297) message] The system which generated this result transmitted reference range : 0.0 - 10.0 /100 WBCs. The refer ence range was not u sed to interpret th is result as normal/abnormal . NRBC x10^3 (test code <0.01 See_Comment [Auto mated = 3807775105) message] The s ystem which generated this result transmitted reference range : 10*3/?L. The reference range was not used to interpret this result as normal/abnormal . GRAN MAT (NEUT) % 50.9 % (test code = 770-8) IMM GRAN % (test code 0.40 % = 1260588179) LYMPH % (test code = 35.9 % 736-9) MONO % (test code = 9.9 % 5905-5) EOS % (test code = 2.2 % 713-8) BASO % (test code = 0.7 % 706-2) GRAN MAT x10^3(ANC) 2.31 10*3/uL 1.88-7.09 (test code = 2251376693) IMM GRAN x10^3 (test <0.03 0-0.06 code = 3838649045) LYMPH x10^3 (test code 1.63 10*3/uL 1.32-3.29 = 731-0) MONO x10^3 (test code 0.45 10*3/uL 0.33-0.92 = 742-7) EOS x10^3 (test code = 0.10 10*3/uL 0.03-0.39 711-2) BASO x10^3 (test code 0.03 10*3/uL 0.01-0.07 = 704-7) Lab Interpretation Abnormal (test code = 15814-3) [facility] WITH [id number] 10:12:00 Test Item Value Reference Range Interpretation [...] RDW-SD (test code = 45.2 fL 39-49.9 89708-1) RDW-CV (test code = 12.9 % 12-15.5 788-0) PLT (test code = See_Comment H [Automated 777-3) message] The sy stem which generated this result transmitted reference range : 166 - 358 10*3/ ?L. The reference r madelin was not used to interpret this result as normal/abnormal . MPV (test code = 9.8 fL 9.5-12.9 56339-5) NRBC/100 WBC (test See_Comment [Automat ed code = 4703560982) message] The system which generated this result transmitted reference range : 0.0 - 10.0 /100 WBCs. The refer ence range was not u sed to interpret th is result as normal/abnormal . NRBC x10^3 (test code <0.01 See_Comment [Auto mated = 8938260801) message] The s ystem which generated this result transmitted reference range : 10*3/?L. The reference range was not used to interpret this result as normal/abnormal . GRAN MAT (NEUT) % 64.8 % (test code = 770-8) IMM GRAN % (test code 2.10 % = 9578489537) LYMPH % (test code = 21.9 % 736-9) MONO % (test code = 9.0 % 5905-5) EOS % (test code = 1.9 % 713-8) BASO % (test code = 0.3 % 706-2) GRAN MAT x10^3(ANC) 8.61 10*3/uL 1.88-7.09 H (test code = 7765200110) IMM GRAN x10^3 (test 0.28 10*3/uL 0-0.06 H code = 6415416156) LYMPH x10^3 (test code 2.91 10*3/uL 1.32-3.29 = 731-0) MONO x10^3 (test code 1.20 10*3/uL 0.33-0.92 H = 742-7) EOS x10^3 (test code = 0.25 10*3/uL 0.03-0.39 711-2) BASO x10^3 (test code 0.04 10*3/uL 0.01-0.07 = 704-7) REACT LYMPHS (test Rare code = 1225892641) Lab Interpretation Abnormal (test code = 62055-3) [facility] (NA, K, CL, CO2, GLUCOSE, BUN, CREATININE, CA)2020-08-01 09:46:00 Test Item Value Reference Range Interpretation Comments NA (test code = 137 mmol/L 135-145 2732066194) K (test code = 4.0 mmol/L 3.5-5 9962000016) CL (test code = 100 mmol/L 98-108 5803961350) CO2 TOTAL (test code = 30 mmol/L 23-31 5704436414) AGAP (test code = 2-16 8840140257) BUN (test code = 5 mg/dL 7-23 L 2987530981) GLUCOSE (test code = 139 mg/dL 70-110 H 9375885744) CREATININE (test code = 0.73 mg/dL 0.5-1.04 6335644839) CALCIUM (test code = 9.3 mg/dL 8.6-10.6 8315938448) eGFR Calculation mL/min/1.73m2 (Non-) (test code = 4986151605) eGFR Calculation mL/min/1.73m2 () (test code = 2317240699) RAUDEL (test code = RAUDEL) Association of [...] tests). Lab Interpretation Abnormal (test code = 01173-5) [facility]2020-09-17 09:46:00 Test Item Value Reference Range Interpretation Comments MAGNESIUM (test code = 5242218164) 1.9 mg/dL 1.7-2.4 Lab Interpretation (test code = Normal 08855-0) [facility]2020-09-17 09:46:00 Test Item Value Reference Range Interpretation Comments PHOSPHORUS (test code = 1980091150) 3.0 mg/dL 2.5-5 Lab Interpretation (test code = Normal 29655-5) [facility] WITH [id number] 10:55:00 Test Item Value Reference Range Interpretation [...] RDW-SD (test code = 45.4 fL 39-49.9 86072-7) RDW-CV (test code = 12.8 % 12-15.5 788-0) PLT (test code = See_Comment H [Automated 777-3) message] The sy stem which generated this result transmitted reference range : 166 - 358 10*3/ ?L. The reference r madelin was not used to interpret this result as normal/abnormal . MPV (test code = 9.7 fL 9.5-12.9 80118-1) NRBC/100 WBC (test See_Comment [Automat ed code = 1584394252) message] The system which generated this result transmitted reference range : 0.0 - 10.0 /100 WBCs. The refer ence range was not u sed to interpret th is result as normal/abnormal . NRBC x10^3 (test code <0.01 See_Comment [Auto mated = 0971166114) message] The s ystem which generated this result transmitted reference range : 10*3/?L. The reference range was not used to interpret this result as normal/abnormal . GRAN MAT (NEUT) % 42.8 % (test code = 770-8) IMM GRAN % (test code 5.50 % = 1458305004) LYMPH % (test code = 36.7 % 736-9) MONO % (test code = 11.8 % 5905-5) EOS % (test code = 2.8 % 713-8) BASO % (test code = 0.4 % 706-2) GRAN MAT x10^3(ANC) 4.35 10*3/uL 1.88-7.09 (test code = 9469443802) IMM GRAN x10^3 (test 0.56 10*3/uL 0-0.06 H code = 8443394021) LYMPH x10^3 (test code 3.74 10*3/uL 1.32-3.29 H = 731-0) MONO x10^3 (test code 1.20 10*3/uL 0.33-0.92 H = 742-7) EOS x10^3 (test code = 0.29 10*3/uL 0.03-0.39 711-2) BASO x10^3 (test code 0.04 10*3/uL 0.01-0.07 = 704-7) REACT LYMPHS (test Rare code = 9938920526) Lab Interpretation Abnormal (test code = 69909-8) [facility] (NA, K, CL, CO2, GLUCOSE, BUN, CREATININE, CA)2020-07-31 10:50:00 Test Item Value Reference Range Interpretation Comments NA (test code = 135 mmol/L 135-145 9181013928) K (test code = 3.8 mmol/L 3.5-5 9104708038) CL (test code = 101 mmol/L 98-108 5699398382) CO2 TOTAL (test code = 27 mmol/L 23-31 5550004467) AGAP (test code = 2-16 9453002961) BUN (test code = 2 mg/dL 7-23 L 6358334202) GLUCOSE (test code = 132 mg/dL 70-110 H 7660830888) CREATININE (test code = 0.72 mg/dL 0.5-1.04 6986979807) CALCIUM (test code = 8.4 mg/dL 8.6-10.6 L 2143067628) eGFR Calculation mL/min/1.73m2 (Non-) (test code = 0589447954) eGFR Calculation mL/min/1.73m2 () (test code = 4876720141) RAUDEL (test code = RAUDEL) Association of [...] tests). Lab Interpretation Abnormal (test code = 46787-8) [facility]2020-09-16 10:50:00 Test Item Value Reference Range Interpretation Comments MAGNESIUM (test code = 4824043468) 1.2 mg/dL 1.7-2.4 L Lab Interpretation (test code = Abnormal 68416-7) [facility]2020-09-16 10:50:00 Test Item Value Reference Range Interpretation Comments PHOSPHORUS (test code = 5513626920) 3.8 mg/dL 2.5-5 Lab Interpretation (test code = Normal 92721-0) [facility] [id number] 15:48:00 Test Item Value Reference Range Interpretation Comments Case Report (test code Surgical Pathology ? ? = 9487422086) ?Case: [id number] ? Authorizing Provider: ?Darren Chun MD ?Collected: ? 07/25/2020 1708 ?Ordering Location: ? ? [facility] OR ? Received: ?07/26/2020 0914 ? Department ? Pathologist: ? Deniz Joseph MD PHD ?Specimen: ? ?ABDOMEN, ILEOCECECTOMY ? Final Diagnosis (test x7jgyMFpQFJiu7ujVZRyiWX code = 0303855301) uZzEwMzNcZnRuYmpcdWMxIH rlqxGhCGvut9QoQ0ZeRxXeE FxhbnNpXGRlZmxhbmcxMDMz ICD4zvMqKSPmTHfyRSHsLNg iAi5ycGQukUkbIfRaZWVpp3 soxxLWeptxuWk3v9coPSKpZ gV5uGVuWBfyG7otjgXvfOHb OZIgBFg7kE98GZHqdX7txYN hRBxcobGlLbC4IWfxWXEsEr Q1LHRveLAoOMTiO9itLIPkG MxsNYOmFSqmxRIbGTV2yApn x0E1xBExjTGwzRkcSfItVyD iHGCWc4OkZEm3vWfxO9XqIG DxUvO4cUUnTALnAJiiQHMbY HAbxbU4wW80XVolujC7vYQv p5Aty69zu329eM8xlLWmDZW 6PYXnRHOznIFrYBLdDCH9YX TgpSUvF6gcPNatPH5irzfsW RU4KUhqBWHigFcsBPdjYSCs SoUabVDbDOTexEpcBSwfb47 7VVY8PuYvKQ7iE0Ekd6N0fM 9maXRcZGVmdGFiNzIwXGZvc a9efBQlJEdra2QdUVW5lcI8 qBBhtYGsPGDiJI82Unqhf0C hTwpmYHC4UJBizaWic9Iqf8 flFsEubgWsW7fzK4OaDUMgN FIsHAFkRuNjvyMrg1Fml3Ix qLLoyLy2z5paAKQdHSLquUu lp1ybUJE5QAIsS0W1vJJzx1 dtJYfcIBFuvKD1xkOfOIXul POxD7UebO5nQAvtJJ0pmny3 z1soEuVaET4jbolvu8zcRKw sZCAwEMN7TtGvBUCdz3Crzz omEiTfh7WcuRZnPThxG10xx 023QEKywbAlD6kzbVQzvedx pMLpqirzHOrdqhB1OEMdQND sYWluXGYxXGZzMjBcbGFuZz EwMzNcaGljaFxmMVxkYmNoX VQiGAizM6vtUkRjTrWnWKbo CEXtWM6xI25UNKgpZC2QQXX ZHU3FAJYFLKLMJCIQQOBXQD NUN0UYOLATFINJM0WKWGQZO 35ZPdreDXCbORAbAO8zB0CC TUVOVEFMIFNNQUxMIElOVEV TVElORSAgSVNDSEVNSUMgTk ZVGv1UUBOwX3zWDSQJWeGMX 12YNaQRLXkZVa2HDvYXCZ4K LCBccGFyICAgICAgICBTRUN YOeVVFsrsYG0fVijJOr1RQI YgYREILJHBY88oSK9WWKMFG JnYWIXTD6MQNH9XP0WZGHFE LO5OKAeaZDPvJFAxGK5xY3V ORQWLJKIQJd6GWcOOC26IGX YNOG9SHLvOTHktL7NCYOQDJ 1NBTCBBTkQgVFJBTlNNVVJB UEEJKU0PJsTLSYiYWMjdXYJ hWKRjIW9tPx4nMGPYKNRUO0 ElJ5KoZJLUMRFBCYVZS3dXF 1MgRElTRUFTRVxwYXIgICAg WI6gK1FEC5oWEBuuHGEFH3i OUyBBUkUgVklBQkxFIFxwYX ObVFYzLA8fNh2yGEKBGLuTH B0IUGRHMVQBRElWXDHQYCQj ciAgICAgLSBBUFBFTkRJWCB ZRZOWPPJFBz5NXYRIWmZrtG FyXHBhclxwbGFpblxmMVxmc hTwJSifkmaoUGIfNHvjJ0jf UhEyGWLwvTpqIBxqk0UqQGV kZQCmXctqikTgOGglIN81CG 1fFPM4VQRNYHXgYX6rDN0nN DIwIFxwbGFpblxmMVxmczIw FYqhpwgaXPEqQYslT6vaIzK sDIXgvZptJRkug3MaXKQbDZ ZzMjBccGFyfXtccnRmMVxzc 2AlU9EiYfPkJCqhomDuHFEu HqroinbkLIPcWPM6kwBoJWR nRHogMUOqGDohBn7nqUYcmT fgSrHfUNUwk0ulgiLXLVqeJ wJlT369QVMrPVqyk9vqf8No WBKvcGUqa5X3HSDQmsoaoZt 2w5rvJtMcHqG9sZPtQOdxJ2 xqigMcxHUhH3LuwAHzdYd1v TnoD19en1L8ShetH8wbWUJc NZJlC9ZhBG6gJRBgMcl9GKB 9KBF4KWUnVAVxZ7JtQO3hMN OemONgQEz0b6xulJdzEMBtX YP5g5biJOtozgE6HY3bwb9a rOl8l8nxbnXfXNNrWFApkUK FBLAsE0CkgYlyZi1lxEz7vB myQlfsCHE7Tlq8OL9gia62h pm0gBndVHLdrelwFvQ5MNie QDSpxtzqYSc1RQelOLVejRR 5EILbxOThE7VzHOCdCY5oku m6VCY4ASbpXIMdDcA2KHNfv DFwTZUcaCkkQNiem032VBN5 UkThCM4cH9Nug5P8gI1gwYX mEKTgwETgQjMyWXEbvo0zeH CuPYwoj1RmTWX0ocY8oXCwp WJsJHQrRR14Kjgnf1CmRitf IYS9NQDlwgVql6Amm2ylUqW akjIjP8aaW5NoXZUwKMSwWU OkXiWyefAse5Ynu9AgeVXrv Qx7g7raEETbMADpiSmef0nv ELB5VWBhN5V1gTZoe6juBSb sZCJizYS0blI5CLMhwPFrL7 RmqO2jVWBsEM9xrov7c1fxK GR7CLshMFPgBvO7aqZ2NAHz jQLhGOSdnJbtNFfpo889YXU 6VcRaCSLkk5CtZ2PvdKfyN1 4auHgoJ12xFJAujJuwbD5zl BqqaC0jAbDhJsZgBFjohJly bGFpblxmMVxmczIwXGxhbmc gDFKkUTgpQ5ieZbOhPZTlgS mcHBxtd9XhUCWeUVKcQhech zIwXHBhciBJIGhhdmUgcGVy x04eXYlanMEqYGIsCZkaYDE zeCphg9EmC6lhKK3iK3UhrP DkarVxvuGcORumVIZyx0j8c WEhwWznh4OecWRvAD61axMh ZKEpXDO1GHLuy0tpXJ65kch bYjLoyM42vdAqbiPpQNVwt9 guN5pqxJPgg5Gos3AvpeNzX Bkyi2NlKZ8yaTDjavjdmQY9 PMDrlWGqvmPgjoD6qUesFBS bsN8rpQ6aeOrtlB1sXcWsOx CxQXxjPQ2bNYIfW2nkjDEpN PQsILWwP5ryWcPpjE5ywXqj [id number] Clinical Information Crohn's 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 code = colon with complication 5670833497) [K50.119]SBO (small bowel obstruction) [K56.609] Gross Description q8yczMPrJHRplZRhFpLqGGN (test code = wFXSxx1buJXQvtCAxApVoEo 5718803700) NcZnRuYmpcdWMxXGRlZmYwe 9dfu578uDUdy0wjHUCdGkN8 mFFyPCKzdQYpL086AYErCGx zl8vrp0XoMSZnqQMkk9W0SX IYzyrxeLe8yHhlU70qt8V0C knmR0faGBDrYYGpS2DrRA6e HWDxCxd1VVI5KUM2EWNiFJS uI5IeOL0lQTQcsXTePTl3l1 ztcWobXIMjXGR2b0gaIOgsa pSmXY8poh3xhDs0o7eisfKh NVVoDNZxoDTJWPHiX6GfgGq hKr9slGz2lIcnMlkpBAC0Sm u6IE9ppd66iyo0qHksBTBvz ebyOvT9ABciZGCyopfsNLw5 NObcVIHxdBKcQLQnkTHhW9D tVXohCV8dtbs0DvNsAL7yzo lqMXdsXGWtBDV7DiYwLLAhl 6VdigmtRkHgbd5nln04LUZ1 w8XwiWyzGKN3COA3SgUeEx4 hgUFxCYAmMH2xVlQqmVZfET Ejxm80gCbgWUiakfUeoD9eD fNrGDQqeVTuOAXjSA4sgDXf GSRelG8upvfbPUKmGhHpnrt cLFIyuTcxkeAnLv1eaIfyND Q4XUfqF5aakX7wPkC7BDrqN 1ebaF5nNZf2WUyprGD9NDZj aG7dTC9dszarx5ixIMM2ISa rMNWrbeT5cfYaWMEgxJOmI8 YoxH26UbThkEWoA8MxaI5tE XseSSNxokp3VvCgZa7nkSHp uKT1SRayKxbxCVaaNZLswwO vbnRccGduZGVjXHBsYWluXH BsYWluXGYwXGZzMjRccWxcc UgwyC1gSlAkGcXiPWddGB5t XCBxY5upuJCcSCUmQTZnO6g pZePebJ4heGjuGYlfzpFoEZ NwZWNpbWVuIEEgaXMgcmVjZ Ce1ZLYadE1cKn5fjVQgsV7k uEUgIVreVNH4sTDmSNMkVTH kRWMaNP80K5IechBcUEuwFP swlcOcMpZnKVLzIAVbh15pw jyfmTvhs3MdE5FnnB0ggKJf IO6kRRQlxlHlw0CgMK1sXDM gu35iuZtlHf77NIqie8CepB VudCAoNjYuOCBjbSBpbiBsZ X0okFafgFEgaASpUOZqasFb EG2irL7mDIXqw01qFl04DD2 fPz7bUVTaMCI6lJNfCHF3yK DrxOUaGASbpEMiNFc0NMh4E gpiT59pbB5ovRWyW4KvAAsb KD58JSXsPVmoKCEgZU2jlJO yKSBhbmQgcHJveGltYWwgY2 XdtZ6tZSZoOQDgCKAaq6Ltd ISnaGLqCS8jpF2atSKntXKu UPMtLHIqZIM0lgRdltJ5JXX rKGVzYOXkFT2kjbNwJIhnCg UyqvTiC3Kde2GroLBawIlan NOvETTbga47E5grgRQmgELd dxHzXK2jwYptn6g1hKK8ePB scWAjOBCoBSIbbQ0aYRQms5 jfqZVdGVUeTMJblHN3GKnrv INnW7nxik9mHWsjPKWiZBWm dOKjFGuqCG7xUK4jSNWjviM dCN8na7AqkMWqbUYstSx2JV GlLGJwmkKzbUVsBE3sgaWhM NouAlCtzP8cioFmLYVqglQb bnRzIHdpdGggYSBkYXJrLWJ vs3qxAWNoBMR8TR7wAOMnoZ Ukg3EbFAU8MMJcC3Rhf7Sxa OX3gUmpc80cz6XtTP5qOOMw OK6dAPcbulLkNKJtOQ65kPP arKthEZIky7TbsNOmkHYxFY KufScxy9iwPY8pZHFcXMLoF DAuMSBjbSBpbiBncmVhdGVz vBOjjD0kgyMcz32iDLqnC3H 3UKXbTRSwfBddVMWwo7JfgA TqoNP4oQ3lDd1abNXrBk2zI TIzj37uBVMzDFHmwi7rl6b9 HAklKJ46cERoWRXjGJciUVO ccGFyIFRoZSBhcHBlbmRpeC JhRZZnSD4rHEZ4QUQmJBSle BXlbV12YSEcz6vzTEJeH3iu ZBQbHDIcTZUgEK6ooJzhJFL rYPD7CAXbUcEtsKmiKW3mRY QgpHLbIQAwxpabq20cu8RtY KFwed8zKUE6iIErFOHvMOVv AE7sOC95qSIaDh0lGLnoI41 aD0NhxVgqtw5cQOotHYBsaH GiAHr6MWesCZWofidxkOl9G ZMcW1Gnt82pIOY3uiXpZHZg DJbkdZXfKZxxjB3vPG3jnBB aW1G8UZT5cgMdO0CkXEpnaH ylIDRhdN8thuFncTCxsB9wg CBkaWFtZXRlciAwLjIgLSAw GhZhR18cVMWvdCupIYU8rBS jVETbz0wcZDWcP7YiXM1vfU VyaWFsLiBXYWxsIHRoaWNrb aKmieGzWW5xWCXfHuRfyKJn WfIwUEPaKzLfM85mYTGdaOE fa4QdeCQ7mGLtUCGzE2Epd5 0qMBRkBTBbyNXtyHF6LEPbl Y2hHMQmADZwCnsrTZDenNEl TSQkL9Pfc03iK86bEOxclEQ gWHZwNINbCxXfpw81hV5cjQ CfmGT8jVByXXFerF6wMYVjF DEeC9VdoOPmJTIxRyRjzJW6 WWnnU7SyQFoylQKbY0koGET nNFJsSVChxhSrsDu4PGkvZY YsYKM3NXlbKY6pWISibEZ8L Pq6DSnlrvIsleEzQW42URLk tbFrbEYrWVA0SuYlVQTmVDR kteEekVr9WHRoNPC3mN3pgb YaBmQ5CWtoYMSlFYmwQ7u9F HIby5Ldq0juCHYgh0k4xVZw tKHyMMI4NSJ3IqGgCOTdUHQ bjoXcjXv7YAUkSIE6tS9wog OtHkA0YRnlRZJmmEWufMS9G EEvk4ZxwUKtsBbokUr3XXSq f76zsQJjbOebHHheaX4hBVk tcHJjAYLoucWMYAV6FTPfN1 Fxd99yJM6uKUHfqHMhZUx8Q WQwUGupU7j7PCTmAJXxZM4l sYBlEJazu5EoBkvxEXYvhA5 vRQEqAda0LKddTETnkBNvz8 WleCM7wNXpCEYso7XjKWHdJ 5Uer51uYYViBBUilgLemtEq QusrRSD2DKVfoXakNQGtbvq mHUFnEi6iOZ3aIWNccQEoOK DAMYA1pINgmuUoESHzwoXOE ABbVD84ueiwsgGUBHYcMFG1 wW1bg7gdl8YuFpBWm2Dkx2N hbnQpXHBhcn0= Embedded Images (test code = 9496262046) [facility] METABOLIC PANEL (NA, K, CL, CO2, GLUCOSE, BUN, CREATININE, CA)2020-07-30 11:29:00 Test Item Value Reference Range Interpretation Comments NA (test code = 136 mmol/L 135-145 1287129856) K (test code = 3.8 mmol/L 3.5-5 Slight 8088986678) hemolysis CL (test code = 102 mmol/L 98-108 9456756504) CO2 TOTAL (test code 25 mmol/L 23-31 = 8632259435) AGAP (test code = 2-16 2460555060) BUN (test code = 2 mg/dL 7-23 L Slight 6775900430) hemolysis GLUCOSE (test code = 182 mg/dL 70-110 H 3946780659) CREATININE (test code 0.68 mg/dL 0.5-1.04 = 2410293444) CALCIUM (test code = 9.0 mg/dL 8.6-10.6 3192425439) eGFR Calculation mL/min/1.73m2 (Non-) (test code = 7068498369) eGFR Calculation mL/min/1.73m2 () (test code = 6865851109) RAUDEL (test code = RAUDEL) Association of [...] tests). Lab Interpretation Abnormal (test code = 77623-6) [facility] 11[facility]:00 Test Item Value Reference Range Interpretation Comments MAGNESIUM (test code = 9285196718) 1.4 mg/dL 1.7-2.4 L Lab Interpretation (test code = Abnormal 68146-4) [facility]2020-09-15 11:29:00 Test Item Value Reference Range Interpretation Comments PHOSPHORUS (test code = 1034727971) 3.6 mg/dL 2.5-5 Lab Interpretation (test code = Normal 74558-2) [facility] [id number] 14:01:19EXAM: XR KUB 07/29/2020 4:42 AM. INDICATION: [...] reviewed this study and agree with theabove report.Rimb,Radiant Results Inft User - 07/29/2020 9:02 AM [...] report.[facility] (NA, K, CL, CO2, GLUCOSE, BUN, CREATININE, CA)2020-07-29 12:26:00 Test Item Value Reference Range Interpretation Comments NA (test code = 137 mmol/L 135-145 9840870015) K (test code = 3.4 mmol/L 3.5-5 L 1050555707) CL (test code = 102 mmol/L 98-108 6886763358) CO2 TOTAL (test code = 31 mmol/L 23-31 7310958631) AGAP (test code = 2-16 7920011764) BUN (test code = 3 mg/dL 7-23 L 4735207827) GLUCOSE (test code = 118 mg/dL 70-110 H 4097642239) CREATININE (test code = 0.81 mg/dL 0.5-1.04 8808035307) CALCIUM (test code = 9.4 mg/dL 8.6-10.6 1354761581) eGFR Calculation mL/min/1.73m2 (Non-) (test code = 4872239149) eGFR Calculation mL/min/1.73m2 () (test code = 5142059772) RAUDEL (test code = RAUDEL) Association of [...] tests). Lab Interpretation Abnormal (test code = 77866-1) [facility]2020-09-14 11:05:00 Test Item Value Reference Range Interpretation Comments Fibrinogen (test code = 1089 mg/dL 167-453 H 7775554086) Lab Interpretation (test code = Abnormal 13260-6) [facility]2020-09[facility]14 10:58:00 Test Item Value Reference Range Interpretation Comments APTT Patient (test code = See_Comment [ Automated message] 3173-2) The system [employer] generated this result transmitted ref erence range: 26 - 36 Seconds. The re ference range was not u sed to interpret this result as normal/abnor mal. Lab Interpretation (test Normal code = 94694-7) [facility]PROTHROMBIN [facility] / [id number] 10:58:00 Test Item Value Reference Range Interpretation Comments PROTIME PATIENT (test See_Comment [Auto mated message] code = 5964-2) The system [employer] generated this result transmitted ref erence range: 10.1 - 1 2.6 Seconds. The re ference range was not u sed to interpret this result as normal/abnor mal. INR (test code = 6301-6) Nor mal INR <1.1; Warfarin Therap eutic range 2.0 to 3. 0 or 2.5 to 3.5, dep ending upon the indica tions. Lab Interpretation (test Normal code = 01256-5) [facility] WITHOUT [id number] 10:54:00 Test Item Value Reference Range Interpretation Comments WBC (test code = 6690-2) See_Comment [A utomated message] The system [employer] generated this result transmit carl reference range : 4.30 - 11.10 10*3/?L. The reference range was not used to interpret this result as normal/abnormal . RBC (test code = 789-8) See_Comment L [Au tomated message] The system [employer] generated this result transmit carl reference range [...] 777-3) See_Comment [Au tomated message] The system [employer] generated this result transmit carl reference range : 166 - 358 10*3/?L. The reference range was not used to interpret this result as normal/abnormal . MPV (test code = 10.0 fL 9.5-12.9 76913-4) RDW-CV (test code = 12.0 % 12-15.5 788-0) RDW-SD (test code = 43.2 fL 39-49.9 93216-8) NRBC x10^3 (test code = <0.01 See_Comment [Au tomated message] 6997152957) The system [employer] generated this result transmit carl reference range : 10*3/?L. The reference range was not used to interpret this result as normal/abnormal . NRBC/100 WBC (test code See_Comment [Au tomated message] = 7222222985) The system [facility] generated this result transmit carl reference range : 0.0 - 10.0 /100 WBC s. The reference r madelin was not used to interpret this result as normal/abnormal . IPF % (test code = 7300499402) Lab Interpretation (test Abnormal code = 95349-1) [facility] CULTURE [id number] 22:01:00 Test Item Value Reference Range Interpretation Comments Blood Culture-Aerobic No organisms No growth Previo us (test code = 33202-2) isolated prelim inary verified result was Culture [...] Culture-Anaerobic isolated preliminar y (test code = 46855-0) verifi ed result was Culture In Progress [...] CDT Lab Interpretation Normal (test code = 89271-1) [facility] CULTURE [id number] 22:01:00 Test Item Value Reference Range Interpretation Comments Blood Culture-Aerobic No organisms No growth Previo us (test code = 19263-3) isolated prelim inary verified result was Culture [...] Culture-Anaerobic isolated preliminar y (test code = 25209-1) verifi ed result was Culture In Progress [...] CDT Lab Interpretation Normal (test code = 37552-4) [facility] METABOLIC PANEL (NA, K, CL, CO2, GLUCOSE, BUN, CREATININE, CA)2020-07-28 12:34:00 Test Item Value Reference Range Interpretation Comments NA (test code = 135 mmol/L 135-145 2339587670) K (test code = 3.6 mmol/L 3.5-5 1922178296) CL (test code = 105 mmol/L 98-108 4848812366) CO2 TOTAL (test code = 24 mmol/L 23-31 2981498146) AGAP (test code = 2-16 4198559200) BUN (test code = 3 mg/dL 7-23 L 5027136832) GLUCOSE (test code = 132 mg/dL 70-110 H 2051800627) CREATININE (test code = 0.68 mg/dL 0.5-1.04 8013092154) CALCIUM (test code = 8.6 mg/dL 8.6-10.6 5006656179) eGFR Calculation mL/min/1.73m2 (Non-) (test code = 2129518588) eGFR Calculation mL/min/1.73m2 () (test code = 2703979047) RAUDEL (test code = RAUDEL) Association of [...] tests). Lab Interpretation Abnormal (test code = 92359-2) [facility] WITHOUT [id number] 10:46:00 Test Item Value Reference Range Interpretation Comments WBC (test code = 6690-2) See_Comment [A utomated message] The system [employer] generated this result transmit carl reference range : 4.30 - 11.10 10*3/?L. The reference range was not used to interpret this result as normal/abnormal . RBC (test code = 789-8) See_Comment L [Au tomated message] The system [employer] generated this result transmit carl reference range [...] 777-3) See_Comment [Au tomated message] The system [employer] generated this result transmit carl reference range : 166 - 358 10*3/?L. The reference range was not used to interpret this result as normal/abnormal . MPV (test code = 10.0 fL 9.5-12.9 04379-7) RDW-CV (test code = 12.0 % 12-15.5 788-0) RDW-SD (test code = 42.5 fL 39-49.9 60709-7) NRBC x10^3 (test code = <0.01 See_Comment [Au tomated message] 7998357445) The system [employer] generated this result transmit carl reference range : 10*3/?L. The reference range was not used to interpret this result as normal/abnormal . NRBC/100 WBC (test code See_Comment [Au tomated message] = 9952011443) The system [employer] generated this result transmit carl reference range : 0.0 - 10.0 /100 WBC s. The reference r madelin was not used to interpret this result as normal/abnormal . IPF % (test code = 9184280634) Lab Interpretation (test Abnormal code = 22015-7) [facility] METABOLIC PANEL (NA, K, CL, CO2, GLUCOSE, BUN, CREATININE, CA)2020-07-27 11:40:00 Test Item Value Reference Range Interpretation Comments NA (test code = 134 mmol/L 135-145 L 5792990521) K (test code = 3.7 mmol/L 3.5-5 4220111902) CL (test code = 104 mmol/L 98-108 9587750203) CO2 TOTAL (test code = 29 mmol/L 23-31 9349874564) AGAP (test code = 2-16 L 3080529854) BUN (test code = 7 mg/dL 7-23 5569583480) GLUCOSE (test code = 169 mg/dL 70-110 H 8726531420) CREATININE (test code = 0.63 mg/dL 0.5-1.04 2645506607) CALCIUM (test code = 8.3 mg/dL 8.6-10.6 L 7650394881) eGFR Calculation mL/min/1.73m2 (Non-) (test code = 4890102438) eGFR Calculation mL/min/1.73m2 () (test code = 0967189246) RAUDEL (test code = RAUDEL) Association of [...] tests). Lab Interpretation Abnormal (test code = 39897-3) [facility] WITHOUT [id number] 11:18:00 Test Item Value Reference Range Interpretation Comments WBC (test code = 6690-2) See_Comment H [A utomated message] The system [employer] generated this result transmit carl reference range : 4.30 - 11.10 10*3/?L. The reference range was not used to interpret this result as normal/abnormal . RBC (test code = 789-8) See_Comment L [Au tomated message] The system [employer] generated this result transmit carl reference range [...] 777-3) See_Comment [Au tomated message] The system [employer] generated this result transmit carl reference range : 166 - 358 10*3/?L. The reference range was not used to interpret this result as normal/abnormal . MPV (test code = 10.8 fL 9.5-12.9 61232-2) RDW-CV (test code = 11.9 % 12-15.5 L 788-0) RDW-SD (test code = 43.5 fL 39-49.9 08210-5) NRBC x10^3 (test code = <0.01 See_Comment [Au tomated message] 4813508904) The system [employer] generated this result transmit carl reference range : 10*3/?L. The reference range was not used to interpret this result as normal/abnormal . NRBC/100 WBC (test code See_Comment [Au tomated message] = 1818798109) The system [employer] generated this result transmit carl reference range : 0.0 - 10.0 /100 WBC s. The reference r madelin was not used to interpret this result as normal/abnormal . IPF % (test code = 2055180075) Lab Interpretation (test Abnormal code = 07234-4) [facility] METABOLIC PANEL (NA, K, CL, CO2, GLUCOSE, BUN, CREATININE, CA)2020-07-26 09:39:00 Test Item Value Reference Range Interpretation Comments NA (test code = 136 mmol/L 135-145 4941135711) K (test code = 3.9 mmol/L 3.5-5 8647682687) CL (test code = 104 mmol/L 98-108 5106413911) CO2 TOTAL (test code = 28 mmol/L 23-31 3619671273) AGAP (test code = 2-16 3775055233) BUN (test code = 11 mg/dL 7-23 4928635654) GLUCOSE (test code = 136 mg/dL 70-110 H 0734702556) CREATININE (test code = 0.84 mg/dL 0.5-1.04 2429051453) CALCIUM (test code = 8.2 mg/dL 8.6-10.6 L 2525304487) eGFR Calculation mL/min/1.73m2 (Non-) (test code = 2978839302) eGFR Calculation mL/min/1.73m2 () (test code = 9744009819) RAUDEL (test code = RAUDEL) Association of [...] tests). Lab Interpretation Abnormal (test code = 37978-7) [facility] WITHOUT [id number] 08:44:00 Test Item Value Reference Range Interpretation Comments WBC (test code = 6690-2) See_Comment [A utomated message] The system [employer] generated this result transmit carl reference range : 4.30 - 11.10 10*3/?L. The reference range was not used to interpret this result as normal/abnormal . RBC (test code = 789-8) See_Comment L [Au tomated message] The system [employer] generated this result transmit carl reference range [...] See_Comment L [Au tomated message] The system [employer] generated this result transmit carl reference range : 166 - 358 10*3/?L. The reference range was not used to interpret this result as normal/abnormal . MPV (test code = 11.0 fL 9.5-12.9 44066-9) RDW-CV (test code = 11.8 % 12-15.5 L 788-0) RDW-SD (test code = 42.4 fL 39-49.9 74565-4) NRBC x10^3 (test code = <0.01 See_Comment [Au tomated message] 0592641388) The system [employer] generated this result transmit carl reference range : 10*3/?L. The reference range was not used to interpret this result as normal/abnormal . NRBC/100 WBC (test code See_Comment [Au tomated message] = 3395972667) The system [facility] generated this result transmit carl reference range : 0.0 - 10.0 /100 WBC s. The reference r madelin was not used to interpret this result as normal/abnormal . IPF % (test code = 3204571145) Lab Interpretation (test Abnormal code = 71958-8) [facility] METABOLIC PANEL (NA, K, CL, CO2, GLUCOSE, BUN, CREATININE, CA)2020-07-26 00:48:00 Test Item Value Reference Range Interpretation Comments NA (test code = 137 mmol/L 135-145 3107568793) K (test code = 4.5 mmol/L 3.5-5 9720101374) CL (test code = 102 mmol/L 98-108 6271741868) CO2 TOTAL (test code = 28 mmol/L 23-31 2451078513) AGAP (test code = 2-16 3667041080) BUN (test code = 13 mg/dL 7-23 1424745801) GLUCOSE (test code = 165 mg/dL 70-110 H 9401020200) CREATININE (test code = 0.92 mg/dL 0.5-1.04 2912014957) CALCIUM (test code = 8.5 mg/dL 8.6-10.6 L 5269878308) eGFR Calculation mL/min/1.73m2 (Non-) (test code = 5192256109) eGFR Calculation mL/min/1.73m2 () (test code = 3772374159) RAUDEL (test code = RAUDEL) Association of [...] tests). Lab Interpretation Abnormal (test code = 64698-6) [facility] 00:48:00 Test Item Value Reference Range Interpretation Comments MAGNESIUM (test code = 4277497963) 1.5 mg/dL 1.7-2.4 L Lab Interpretation (test code = Abnormal 09839-9) [facility]stPROTHROMBIN TIME / [id number] 00:29:00 Test Item Value Reference Range Interpretation Comments PROTIME PATIENT (test See_Comment H [Auto mated message] code = 5964-2) The system [employer] generated this result transmitted ref erence range: 10.1 - 1 2.6 Seconds. The reference range was not used to int erpret this result as normal/abnormal . INR (test code = 6301-6) Nor mal INR <1.1; Warfarin Therap eutic range 2.0 to 3. 0 or 2.5 to 3.5, dep ending upon the indica tions. Lab Interpretation (test Abnormal code = 59775-1) [facility]staPTT2020-09-11 00:29:00 Test Item Value Reference Range Interpretation Comments APTT Patient (test code = See_Comment [ Automated message] 3173-2) The system [employer] generated this result transmitted ref erence range: 26 - 36 Seconds. The re ference range was not u sed to interpret this result as normal/abnor mal. Lab Interpretation (test Normal code = 59301-0) [facility]stCBC WITHOUT [id number] 00:24:00 Test Item Value Reference Range Interpretation Comments WBC (test code = 6690-2) See_Comment H [A utomated message] The system [employer] generated this result transmit carl reference range : 4.30 - 11.10 10*3/?L. The reference range was not used to interpret this result as normal/abnormal . RBC (test code = 789-8) See_Comment L [Au tomated message] The system [employer] generated this result transmit carl reference range [...] 777-3) See_Comment [Au tomated message] The system [employer] generated this result transmit carl reference range : 166 - 358 10*3/?L. The reference range was not used to interpret this result as normal/abnormal . MPV (test code = 10.8 fL 9.5-12.9 62966-7) RDW-CV (test code = 12.0 % 12-15.5 788-0) RDW-SD (test code = 44.0 fL 39-49.9 70040-4) NRBC x10^3 (test code = <0.01 See_Comment [Au tomated message] 6482250594) The system [employer] generated this result transmit carl reference range : 10*3/?L. The reference range was not used to interpret this result as normal/abnormal . NRBC/100 WBC (test code See_Comment [Au tomated message] = 2942848390) The system [facility] generated this result transmit carl reference range : 0.0 - 10.0 /100 WBC s. The reference r madelin was not used to interpret this result as normal/abnormal . IPF % (test code = 0273676086) Lab Interpretation (test Abnormal code = 85424-9) [facility] (NA, K, CL, CO2, GLUCOSE, BUN, CREATININE, CA)2020-07-25 12:05:00 Test Item Value Reference Range Interpretation Comments NA (test code = 137 mmol/L 135-145 7707040965) K (test code = 4.0 mmol/L 3.5-5 0528986329) CL (test code = 104 mmol/L 98-108 9978033895) CO2 TOTAL (test code = 28 mmol/L 23-31 4960104769) AGAP (test code = 2-16 2226970537) BUN (test code = 13 mg/dL 7-23 5031938030) GLUCOSE (test code = 207 mg/dL 70-110 H 6559284742) CREATININE (test code = 0.79 mg/dL 0.5-1.04 7552408243) CALCIUM (test code = 8.5 mg/dL 8.6-10.6 L 2154617462) eGFR Calculation mL/min/1.73m2 (Non-) (test code = 9756170740) eGFR Calculation mL/min/1.73m2 () (test code = 0292194731) RAUDEL (test code = RAUDEL) Association of [...] tests). Lab Interpretation Abnormal (test code = 22831-3) [facility] WITHOUT [id number] 12:02:00 Test Item Value Reference Range Interpretation Comments WBC (test code = 6690-2) See_Comment H [A utomated message] The system [employer] generated this result transmit carl reference range : 4.30 - 11.10 10*3/?L. The reference range was not used to interpret this result as normal/abnormal . RBC (test code = 789-8) See_Comment L [Au tomated message] The system [employer] generated this result transmit carl reference range [...] 777-3) See_Comment [Au tomated message] The system [facility] generated this result transmit carl reference range : 166 - 358 10*3/?L. The reference range was not used to interpret this result as normal/abnormal . MPV (test code = 10.9 fL 9.5-12.9 90032-2) RDW-CV (test code = 12.1 % 12-15.5 788-0) RDW-SD (test code = 43.3 fL 39-49.9 38328-4) NRBC x10^3 (test code = <0.01 See_Comment [Au tomated message] 0014163955) The system [facility] generated this result transmit carl reference range : 10*3/?L. The reference range was not used to interpret this result as normal/abnormal . NRBC/100 WBC (test code See_Comment [Au tomated message] = 3180462020) The system [facility] generated this result transmit carl reference range : 0.0 - 10.0 /100 WBC s. The reference r madelin was not used to interpret this result as normal/abnormal . IPF % (test code = 3919682540) Lab Interpretation (test Abnormal code = 21165-3) [facility]stABORH [id number] 08:01:35 Test Item Value Reference Range Interpretation Comments ABO & RH (test code A Positive Performe d at [facility] = 20) Laboratory [facility] Blood Bank3 [address] [facility] s [address]ahs Free: [phone] A No. [id number] [facility]stType and Screen - ONCE [id number] 05:04:45 Test Item Value Reference Range Interpretation Comments ABO & RH (test code A POSITIVE Performe d at [facility] = 20) Laboratory [facility] Blood Bank3 [address] [facility] s [address]Rxxs Free: [phone] A No. [id number] IAT (test code = Negative Performed a t [facility] 1185) Laboratory [facility] Blood Bank3 [facility] s [address]Hles Free: [phone] A No. [id number] [facility] HillcrestXR ABDOMEN 1 [id number] 13:39:15EXAM: XR ABDOMEN 1 VW 07/24/2020 1:46 [...] reviewed this study and agree with theabove report.[facility], Radiant Results Inft User - [...] report.[facility] (NA, K, CL, CO2, GLUCOSE, BUN, CREATININE, CA)2020-07-24 08:29:00 Test Item Value Reference Range Interpretation Comments NA (test code = 137 mmol/L 135-145 9972673785) K (test code = 4.1 mmol/L 3.5-5 Slight 8478033834) hemolysis CL (test code = 102 mmol/L 98-108 7629441666) CO2 TOTAL (test code 24 mmol/L 23-31 = 3606264328) AGAP (test code = 2-16 7360388689) BUN (test code = 19 mg/dL 7-23 Slight 2744951992) hemolysis GLUCOSE (test code = 170 mg/dL 70-110 H 9370626619) CREATININE (test code 0.93 mg/dL 0.5-1.04 = 7261476161) CALCIUM (test code = 8.9 mg/dL 8.6-10.6 3275704166) eGFR Calculation mL/min/1.73m2 (Non-) (test code = 0008983987) eGFR Calculation mL/min/1.73m2 () (test code = 0720499613) RAUDEL (test code = RAUDEL) Association of [...] tests). Lab Interpretation Abnormal (test code = 32085-4) [facility] WITHOUT [id number] 08:27:00 Test Item Value Reference Range Interpretation Comments WBC (test code = See_Comment H [Automated message] 6690-2) The system [employer] generated this result transmitted ref erence range: 4.30 - 1 1.10 10*3/?L. The reference range was not used to int erpret this result as normal/abnormal . RBC (test code = 789-8) See_Comment [Au tomated message] The system [employer] generated this result transmitted ref erence range: [...] 777-3) See_Comment [Au tomated message] The system [employer] generated this result transmitted ref erence range: 166 - 35 8 10*3/?L. The reference range was not used to int erpret this result as normal/abnormal . MPV (test code = 11.0 fL 9.5-12.9 69393-1) RDW-CV (test code = 12.0 % 12-15.5 788-0) RDW-SD (test code = 41.5 fL 39-49.9 52323-9) NRBC x10^3 (test code = <0.01 See_Comment [Au tomated message] 8847950662) The system [employer] generated this result transmitted ref erence range: 10*3/?L. The reference range was not used to int erpret this result as normal/abnormal . NRBC/100 WBC (test code See_Comment [Au tomated message] = 0647290648) The system [employer] generated this result transmitted ref erence range: 0.0 - 10 .0 /100 WBCs. The reference range was not used to int erpret this result as normal/abnormal . IPF % (test code = 5.7 % 1.3-7.7 Platelet count 8357669109) measured by fluorescence me thod. Lab Interpretation Abnormal (test code = 93469-2) [facility]stCOVID-19 (ID NOW RAPID TESTING)2020-07-24 01:08:00 Test Item Value Reference Range Interpretation Comments SARS-CoV-2 Rapid ID NOW Not Detected Not Detected (test code = 09813-2) RAUDEL (test code = RAUDEL) ID NOW COVID-19 Assay is an isothermal nucleic acid amplification test intended for the qualitative detection of nucleic acid from SARS-CoV-2 viral RNA in nasopharyngeal (LAYER OUT PLATE GLASS) specimens. It is used under Emergency Use [...] indicated. Lab Interpretation Normal (test code = 51248-3) [facility]stLactic Acid Whole [id number] 00:34:00 Test Item Value Reference Range Interpretation Comments LACTIC ACID (test code = 3.03 mmol/L 4790433824) [facility] Hill[facility]stLactic Acid Whole [id number] 21:59:00 Test Item Value Reference Range Interpretation Comments LACTIC ACID (test code = 2.30 mmol/L 0703003059) [facility]stCT ABDOMEN PELVIS W [id number] 21:22:06CT Abdomen and Pelvis with intravenous contrast. [...] visualized, however, findings are not suggestive ofacute appendicitis.[facility] Metabolic Panel (NA, K, CL, CO2, GLUCOSE, BUN, CREATININE, CA)2020-07-23 20:11:00 Test Item Value Reference Range Interpretation Comments NA (test code = 137 mmol/L 135-145 3175991669) K (test code = 3.3 mmol/L 3.5-5 L 5890331494) CL (test code = 97 mmol/L 98-108 L 8200511261) CO2 TOTAL (test code = 25 mmol/L 23-31 7957882709) AGAP (test code = 2-16 1354385453) BUN (test code = 18 mg/dL 7-23 6012434435) GLUCOSE (test code = 236 mg/dL 70-110 H 5210905189) CREATININE (test code = 0.94 mg/dL 0.5-1.04 6409053248) CALCIUM (test code = 10.4 mg/dL 8.6-10.6 8474944816) eGFR Calculation mL/min/1.73m2 (Non-) (test code = 5618151525) eGFR Calculation mL/min/1.73m2 () (test code = 7268109235) RAUDEL (test code = RAUDEL) Association of [...] tests). Lab Interpretation Abnormal (test code = 23139-6) [facility]stHepatic Function Panel (ALB, T.PRO, BILI T, BU/BC, ALT, AST, ALK PHOS)2020-07-23 20:11:00 Test Item Value Reference Range Interpretation Comments TOTAL BILI (test code = 5870581927) 1.0 mg/dL 0.1-1.1 BILI UNCON (test code = 3873846290) 1.0 mg/dL 0.1-1.1 BILI CONJ (test code = 8421575635) 0.0 mg/dL 0-0.3 T PROTEIN (test code = 9866725602) 8.9 g/dL 6.3-8.2 H ALBUMIN (test code = 3562465306) 4.7 g/dL 3.5-5 ALK PHOS (test code = 8038879824) 77 U/L 34-122 ALTv (test code = 1742-6) 19 U/L 5-35 AST(SGOT) (test code = 4799965496) 24 U/L 13-40 Lab Interpretation (test code = Abnormal 22068-1) [facility]stLipase [id number] 20:11:00 Test Item Value Reference Range Interpretation Comments LIPASE (test code = 2728126160) 26 U/L 0-220 Lab Interpretation (test code = Normal 68709-1) [facility] with [id number] 19:48:00 Test Item Value Reference Range Interpretation [...] RDW-SD (test code = 39.7 fL 39-49.9 88782-1) RDW-CV (test code = 11.5 % 12-15.5 L 788-0) PLT (test code = See_Comment [Automated 777-3) message] The system which generated this result transmit carl reference range : 166 - 358 10*3/ ?L. The reference range was not u sed to interpret th is result as normal/abnormal . MPV (test code = 10.4 fL 9.5-12.9 37854-1) NRBC/100 WBC (test See_Comment [Automat ed code = 7516377844) message] The system which generated this result transmit carl reference range : 0.0 - 10.0 /100 WBCs. The reference range was not used to interpret this result as normal/abnormal . NRBC x10^3 (test code <0.01 See_Comment [Auto mated = 0331969750) message] The system which generated this result transmit carl reference range : 10*3/?L. The reference range was not used to interpret this result as normal/abnormal . GRAN MAT (NEUT) % 90.3 % (test code = 770-8) IMM GRAN % (test code 0.50 % = 6389144738) LYMPH % (test code = 5.4 % 736-9) MONO % (test code = 3.7 % 5905-5) EOS % (test code = 0.0 % 713-8) BASO % (test code = 0.1 % 706-2) GRAN MAT x10^3(ANC) 12.67 10*3/uL 1.88-7.09 H (test code = 1767610041) IMM GRAN x10^3 (test 0.07 10*3/uL 0-0.06 H code = 8404654682) LYMPH x10^3 (test code 0.76 10*3/uL 1.32-3.29 L = 731-0) MONO x10^3 (test code 0.52 10*3/uL 0.33-0.92 = 742-7) EOS x10^3 (test code = <0.03 0.03-0.39 L 711-2) BASO x10^3 (test code <0.03 0.01-0.07 = 704-7) Lab Interpretation Abnormal (test code = 38638-8) [facility]stUrinalysis2020-09-08 19:37:00 Test Item Value Reference Range Interpretation Comments APPEARANCE (test code = Hazy Clear A 2684156491) COLOR (test code = Kathleen Yellow A 9074459663) PH (test code = 4.8-8.0 9617512922) SP GRAVITY (test code = 1.003-1.030 H 1044073827) GLU U QUAL (test code = 50 mg/dL Normal A 1535459260) BLOOD (test code = Negative Negative 2736983205) KETONES (test code = 80 mg/dL Negative A 2566266859) PROTEIN (test code = 100 mg/dL Negative A 2887-8) UROBILIN (test code = Normal Normal 4560476159) BILIRUBIN (test code = Negative Negative 8603167312) NITRITE (test code = Negative Negative 7062580298) LEUK CHELY (test code = Negative Negative 5246982991) RBC/HPF (test code = See_Comment [Autom ated message] 6842508322) The system [employer] generated this result transmit carl reference range : 0 - 3 HPF. The refe rence range was not u sed to interpret th is result as normal/abnormal . WBC/HPF (test code = See_Comment [Autom ated message] 0557971795) The system [employer] generated this result transmit carl reference range : 0 - 5 HPF. The refe rence range was not u sed to interpret th is result as normal/abnormal . BACTERIA (test code = Few Negative A 2629439666) MUCOUS (test code = Marked Negative LPF A 1003178894) SQ EPITH (test code = HPF 2094326231) Lab Interpretation (test Abnormal code = 32956-9) [facility]stCT ABDOMEN PELVIS W [id number] 18:53:08CT Abdomen and Pelvis with intravenous contrast. [...] Unremarkable.CONCLUSION: No acute intra-abdominal or intrapelvic pathology detected.[facility] Met[facility] (NA, K, CL, CO2, GLUCOSE, BUN, CREATININE, CA)2019-06-15 18:17:00 Test Item Value Reference Range Interpretation Comments NA (test code = 140 mmol/L 135-145 7768881629) K (test code = 3.5 mmol/L 3.5-5 7622535124) CL (test code = 105 mmol/L 98-108 7740811424) CO2 TOTAL (test code = 25 mmol/L 23-31 9553734976) AGAP (test code = 2-16 7494671563) BUN (test code = 10 mg/dL 7-23 9502852466) GLUCOSE (test code = 162 mg/dL 70-110 H 1162201211) CREATININE (test code = 0.81 mg/dL 0.5-1.04 8125507795) CALCIUM (test code = 8.7 mg/dL 8.6-10.6 2232243326) eGFR Calculation mL/min/1.73m2 (Non-) (test code = 1367617932) eGFR Calculation mL/min/1.73m2 () (test code = 8147610762) RAUDEL (test code = RAUDEL) Association of [...] tests). Lab Interpretation Abnormal (test code = 40971-6) [facility]Hep[facility] Function [facility] (ALB, T.PRO, BILI T, BU/BC, ALT, AST, ALK PHOS)2019-06-15 18:17:00 Test Item Value Reference Range Interpretation Comments TOTAL BILI (test code = 1099705774) 0.7 mg/dL 0.1-1.1 BILI UNCON (test code = 5972807080) 0.6 mg/dL 0.1-1.1 BILI CONJ (test code = 9092571848) 0.0 mg/dL 0-0.3 T PROTEIN (test code = 4631294927) 7.7 g/dL 6.3-8.2 ALBUMIN (test code = 9217786889) 4.2 g/dL 3.5-5 ALK PHOS (test code = 9996592683) 59 U/L 34-122 ALT(SGPT) (test code = 4051713117) 16 U/L 9-51 AST(SGOT) (test code = 1051400310) 20 U/L 13-40 Lab Interpretation (test code = Normal 29264-2) [facility]stLipase [id number] 18:17:00 Test Item Value Reference Range Interpretation Comments LIPASE (test code = 2281469047) 48 U/L 0-220 Lab Interpretation (test code = Normal 21220-9) [facility]stUrinalysis2019-08-01 18:06:00 Test Item Value Reference Range Interpretation Comments APPEARANCE (test code Slightly Hazy Clear A = 0397193944) COLOR (test code = Yellow Yellow 7448098253) PH (test code = 4.8-8.0 6943892809) SP GRAVITY (test code >=1.030 1.003-1.030 = 4149273558) GLU U QUAL (test code Negative Negative = 2541246682) BLOOD (test code = Negative Negative 6657622236) KETONES (test code = Negative Negative 7855368672) PROTEIN (test code = Negative Negative 2887-8) UROBILIN (test code = 0.2 mg/dL See_Comment [Auto mated [id number]) message] The system which generated this result transmit carl reference range : 0-1.0 mg/dL. Th e reference range was not used to interpret this result as normal/abnormal . BILIRUBIN (test code = Negative Negative 3780469839) NITRITE (test code = Negative Negative 9652124983) LEUK CHELY (test code Negative Negative = 0009779436) RBC/HPF (test code = See_Comment [Autom ated 0395755683) message] The system which generated this result transmit carl reference range : 0 - 3 HPF. The reference range was not used to interpret this result as normal/abnormal . WBC/HPF (test code = See_Comment [Autom ated 7799467844) message] The system which generated this result transmit carl reference range : 0 - 5 HPF. The reference range was not used to interpret this result as normal/abnormal . BACTERIA (test code = Moderate Negative A 6056563322) MUCOUS (test code = Moderate Negative LPF A 6668970587) SQ EPITH (test code = HPF 1190152084) CA OXALATE (test code See_Comment H [Auto mated = 3152859041) message] The system which generated this result transmit carl reference range : <=1 HPF. The reference range was not used to interpret this result as normal/abnormal . Lab Interpretation Abnormal (test code = 45585-8) [facility] [id number] 17:57:00 Test Item Value Reference Range Interpretation Comments LACTIC ACID (test code = 1.94 mmol/L 0.5-2.2 7270880607) Lab Interpretation (test code = Normal 01507-1) [facility] WITH [id number] 17:56:00 Test Item Value Reference Range Interpretation Comments WBC (test code = See_Comment [Automated 5290-2) message] The sy stem which generated this result transmitted reference range : 4.30 - 11.10 10*3/?L. The reference range was not used to interpret this result as normal/abnormal . RBC (test code = See_Comment [Automated 429-8) message] The sy stem which generated this [...] RDW-SD (test code = 41.2 fL 39-49.9 35107-4) RDW-CV (test code = 11.7 % 12-15.5 L 788-0) PLT (test code = See_Comment [Automated 777-3) message] The sy stem which generated this result transmitted reference range : 166 - 358 10*3/ ?L. The reference r madelin was not used to interpret this result as normal/abnormal . MPV (test code = 10.0 fL 9.5-12.9 87163-5) NRBC/100 WBC (test See_Comment [Automat ed code = 9284979702) message] The system which generated this result transmitted reference range : 0.0 - 10.0 /100 WBCs. The refer ence range was not u sed to interpret th is result as normal/abnormal . NRBC x10^3 (test code <0.01 See_Comment [Auto mated = 0612712781) message] The s ystem which generated this result transmitted reference range : 10*3/?L. The reference range was not used to interpret this result as normal/abnormal . GRAN MAT (NEUT) % 72.9 % (test code = 770-8) IMM GRAN % (test code 0.10 % = 4219580474) LYMPH % (test code = 21.6 % 736-9) MONO % (test code = 4.3 % 5905-5) EOS % (test code = 0.7 % 713-8) BASO % (test code = 0.4 % 706-2) GRAN MAT x10^3(ANC) 4.88 10*3/uL 1.88-7.09 (test code = 7614306095) IMM GRAN x10^3 (test <0.03 0-0.06 code = 1671961795) LYMPH x10^3 (test code 1.45 10*3/uL 1.32-3.29 = 731-0) MONO x10^3 (test code 0.29 10*3/uL 0.33-0.92 L = 742-7) EOS x10^3 (test code = 0.05 10*3/uL 0.03-0.39 711-2) BASO x10^3 (test code 0.03 10*3/uL 0.01-0.07 = 704-7) Lab Interpretation Abnormal (test code = 33055-3) [facility] Test, [id number] 17:24:00 Test Item Value Reference Range Interpretation Comments POCT PREG (test code = 1605) negative On board controls acceptable with present C Line (test code = 3574) POCT PREG LOT # (test code = 3575) [id number] POCT PREG TEST DATE (test 11/14/20 code = 3576) Lab Interpretation (test code = Normal 01214-0) [facility]"
[2023-03-08] MEDS ORDERED: DIPHENHYDRAMINE 50 MG/ML VIAL ONE ×2 (20:08→23:42)
[2023-03-08] MEDS ORDERED: METHYLPREDNISOLONE 125 MG INJ ONE (20:08)
[2023-03-08] MEDS ORDERED: PROMETHAZINE INJ 25 MG/ML AMP ONE ×2 (20:08→23:42)
[2023-03-08] MEDS ORDERED: HYDROMORPHONE HCL 1 MG/ML INJ ONE ×2 (20:08→22:14)
[2023-03-08] MEDS ORDERED: FAMOTIDINE 20 MG/2 ML VIAL IV ONE (20:09)
[2023-03-08 20:25] LABS: Absolute Lymphocytes (CBC) 3.6 K/uL (0.7-4.9); Hematocrit 41.3 % (36.0-45.0); Lymphocytes % 54.9 % (15.3-44.8); MCV 95.3 fL (80-100); MPV 8.9 fL (7.6-11.3); RBC Red Blood Cell Count 4.33 M/uL (3.86-4.86)
[2023-03-08 20:40] LABS: Albumin 3.6 g/dL (3.4-5.0); Bilirubin Total 0.4 mg/dL (0.2-1.0); Protein, Total 8.6 g/dL (6.4-8.2); Troponin High Sensitivity 3.8 pg/mL (<58.9)
[2023-03-08 20:41] LABS: Potassium 4.8 mEq/L (3.5-5.1)
--- NOTE | 2023-03-08 21:24 | RAD REPORT ---
EXAM DESCRIPTION: RADChest Single View03/08/2023 8:25 pm CLINICAL HISTORY: CHEST PAIN COMPARISON: Chest Single View dated 07/12/2022; Chest Single View dated 11/22/2021; Chest Single View d ated 08/02/2021; Chest Single View dated 06/15/2019 TECHNIQUE: Portable AP view of the chest. FINDINGS: The lungs are clear. No pneumothorax or effusion. The cardiomediastinal contours are unrem arkable. IMPRESSION: No acute cardiopulmonary process.
[2023-03-08 22:11] LABS: Blood Morphology Comment NOT SEEN (NOT SEEN); Platelet Estimate ADEQ; White Blood Cell Scan OK (OK)
--- NOTE | 2023-03-09 01:05 | ER ---
Nurse's Notes [facility] Name: Jessica Stearns Age: 47 yrs Sex: Female : 1975 Arrival Date: 03/08/2023 Time: 18:28 Bed 5 Private MD: Diagnosis: Abdominal pain, Generalized;Upper abdominal pain, unspecified;Crohn's disease, unspecified, without complications Presentation: 03/08 18:56 Chief complaint: Patient states: epigastric pain, nausea/vomiting that began Wednesday, aa5 pt reports crohn's flare up. Onset of symptoms was February 2023. 18:56 Acuity: EVELIA 3 aa5 18:56 Coronavirus screen: vomiting. Ebola Screen: Patient denies travel to an Ebola-affected [facility] area in the 21 days before illness onset. Initial Sepsis Screen: Does the patient meet any 2 criteria? HR > 90 bpm. Does the patient have a suspected source of infection? No. Patient's initial sepsis screen is negative. Risk Assessment: Do you want to hurt yourself or someone else? Patient reports no desire to harm self or others. 18:56 Method Of Arrival: Ambulatory aa5 Historical: - Allergies: 18:56 Bentyl; aa5 18:56 Butalbital Compound; aa5 18:56 Demerol; aa5 18:56 Fentanyl; aa5 18:56 Ketorolac; aa5 18:56 Morphine; aa5 18:56 Reglan; aa5 18:56 Sulfa (Sulfonamide Antibiotics); aa5 18:56 Talwin; aa5 18:56 Toradol; aa5 18:56 Zofran; aa5 - PMHx: 18:56 Crohn's; gastritis; ibs; aa5 - PSHx: 18:56 Appendectomy; colon resection; Colostomy and reversal; aa5 - Immunization history:: Adult Immunizations unknown. - Social history:: Smoking status: Patient reports the use of cigarette tobacco products, denies chronic smoking, but will smoke occasionally. Screenin:59 [facility] ED Fall Risk Assessment (Adult) History of falling in the last 3 months, kl including since admission No falls in past 3 months (0 pts) Confusion or Disorientation No (0 pts) Intoxicated or Sedated No (0 pts) Impaired Gait No (0 pts) Mobility Assist Device Used No (0 pt) Altered Elimination No (0 pt) Score/Fall Risk Level 0 - 2 = Low Risk Oriented to surroundings, Maintained a safe environment, Educated pt \T\ family on fall prevention, incl call for assistance when getting out of bed. Abuse screen: Denies threats or abuse. Nutritional screening: No deficits noted. Tuberculosis screening: No symptoms or risk factors identified. Assessment: 19:57 General: Appears distressed, uncomfortable, Behavior is calm, cooperative. Pain: kl Complains of pain in abdomen Pain does not radiate. Pain currently is 10 out of 10 on a pain scale. Pain began gradually, 2-3 days ago. Neuro: No deficits noted. Cardiovascular: No deficits noted. Respiratory: No deficits noted. GI: Reports lower abdominal pain, upper abdominal pain, cramping, nausea, vomiting. Derm: dry scaly skin to bilateral hands. 22:59 Reassessment: Patient appears in no apparent distress at this time. Patient is alert, kl oriented x 3, equal unlabored respirations, skin warm/dry/pink. Patient denies pain at this time. Patient states feeling better. Patient states symptoms have improved. Vital Signs: 18:56 BP 133 / 99; Pulse 97; Resp 20 S; Temp 98.1(TE); Pulse Ox 100% on R/A; Weight 58.97 kg aa5 (R); Height 5 ft. 7 in. (R); 19:58 BP 136 / 102; Pulse 92; Resp 18; Pulse Ox 100% on R/A; kl 20:44 BP 132 / 96; Pulse 94; Resp 16; Pulse Ox 100% on R/A; ll3 21:24 BP 127 / 90; Pulse 82; Resp 12; Pulse Ox 99% on R/A; ll3 21:39 BP 127 / 90; Pulse 84; Resp 15; Pulse Ox 100% on R/A; kl 22:37 BP 136 / 87; Pulse 86; Resp 12; Pulse Ox 100% on R/A; ll3 23:44 BP 133 / 90; Pulse 92; Resp 12; Pulse Ox 100% on R/A; ll3 03/09 01:00 BP 131 / 80; Pulse 93; Resp 14; Pulse Ox 100% on R/A; ll3 02:39 BP 157 / 89; Pulse 92; Resp 14; Pulse Ox 100% on R/A; ll3 03/08 18:56 Body Mass Index 20.36 (58.97 kg, 170.18 cm) aa5 ED Course: 03/08 18:30 Patient arrived in ED. mr 18:56 Triage completed. aa5 18:56 Arm band placed on. aa5 19:20 Dc Steve MD is Attending Physician. kdr 20:10 Inserted saline lock: 20 gauge in left upper arm, using aseptic technique. Blood as6 collected. ultrasound guided. 20:27 XRAY Chest (1 view) In Process Unspecified. EDMS 21:39 No apparent distress. Resting quietly. Appears to be sleeping. 03/09 01:40 CT Abd/Pelvis - IV Contrast Only In Process Unspecified. EDMS 02:38 Patient has correct armband on for positive identification. Bed in low position. Call ll3 light in reach. Side rails up X 1. Client placed on continuous cardiac and pulse oximetry monitoring. NIBP monitoring applied. 02:38 No provider procedures requiring assistance completed. IV discontinued, intact, ll3 bleeding controlled, No redness/swelling at site. Pressure dressing applied. Patient maintains SpO2 saturation greater than 95% on room air. Administered Medications: 03/08 20:30 Drug: MethylPrednisoLONE IVP 125 mg Route: IVP; Site: left antecubital; kl 21:29 Follow up: Response: No adverse reaction kl 20:35 Drug: diphenhydrAMINE IVP 25 mg Route: IVP; Site: left antecubital; kl 21:29 Follow up: Response: No adverse reaction; Marked relief of symptoms kl 20:35 Drug: Famotidine IVP 20 mg Route: IVP; Site: left antecubital; kl 21:29 Follow up: Response: No adverse reaction kl 20:40 Drug: Promethazine IVP 25 mg Route: IVP; Site: left antecubital; kl 21:29 Follow up: Response: No adverse reaction; Marked relief of symptoms kl 20:44 Drug: HYDROmorphone IVP 1 mg Route: IVP; Site: left antecubital; kl 21:28 Follow up: Response: No adverse reaction; Marked relief of symptoms kl 22:14 Drug: HYDROmorphone IVP 1 mg Route: IVP; Site: left antecubital; kl 03/09 02:39 Follow up: Response: No adverse reaction 3 03/08 23:45 Drug: diphenhydrAMINE IVP 12.5 mg Route: IVP; Site: left antecubital; ll3 03/09 02:39 Follow up: Response: No adverse reaction ll3 03/08 23:45 Drug: Promethazine IVP 12.5 mg Route: IVP; Site: left antecubital; ll3 03/09 02:39 Follow up: Response: No adverse reaction ll3 Medication: 02:38 VIS not applicable for this client. ll3 Outcome: 01:04 Discharge ordered by . kdr 02:12 Discharge ordered by . kdr 02:38 Discharged to home ambulatory, with family. ll3 02:38 Condition: stable 02:38 Discharge instructions given to patient, Instructed on discharge instructions, follow up and referral plans. medication usage, Demonstrated understanding of instructions, follow-up care, medications, Prescriptions given X 3. 02:40 Patient left the ED. ll3 Signatures: Dispatcher [employer] EDMS Claudia Pérez RN RN kl Rittger, Kevin, MD MD kdr Rivera, Mary Ivelisse Connor RN RN aa5 Jefferson Fermin RN RN as6 Neela Dickinson RN RN ll3 Corrections: (The following items were deleted from the chart) 03/08 20:51 20:44 BP 132 / 96; senia ll3
--- NOTE | 2023-03-09 01:05 | EDPHYS ---
Physician Documentation [facility] Name: Jessica Stearns Age: 47 yrs Sex: Female : 1975 Arrival Date: 03/08/2023 Time: 18:28 Bed 5 Private MD: ED Physician Dc Steve HPI: 03/08 21:40 This 47 yrs old Black Female presents to ER via Ambulatory with complaints of Krohns kdr Flare up, Chest Pain. 21:41 Patient states that she has been having epigastric pain and right sided abdominal pain kdr since Wednesday. She states that this feels like her typical Crohn's flareup. She was last here in December for the same issue. She is otherwise denies anything new or unusual with this presentation. She has had diarrhea since Wednesday. She denies bloody stool or black tarry stools.. Onset: The symptoms/episode began/occurred 3 day(s) ago. Severity of symptoms: At their worst the symptoms were moderate severe just prior to arrival, in the emergency department the symptoms are unchanged. The patient has experienced similar episodes in the past, multiple times. The patient has not recently seen a physician. Historical: - Allergies: 18:56 Bentyl; aa5 18:56 Butalbital Compound; aa5 18:56 Demerol; aa5 18:56 Fentanyl; aa5 18:56 Ketorolac; aa5 18:56 Morphine; aa5 18:56 Reglan; aa5 18:56 Sulfa (Sulfonamide Antibiotics); aa5 18:56 Talwin; aa5 18:56 Toradol; aa5 18:56 Zofran; aa5 - PMHx: 18:56 Crohn's; gastritis; ibs; aa5 - PSHx: 18:56 Appendectomy; colon resection; Colostomy and reversal; aa5 - Immunization history:: Adult Immunizations unknown. - Social history:: Smoking status: Patient reports the use of cigarette tobacco products, denies chronic smoking, but will smoke occasionally. ROS: 21:41 Constitutional: Negative for fever, chills, and weight loss, Eyes: Negative for injury, kdr pain, redness, and discharge, ENT: Negative for injury, pain, and discharge, Neck: Negative for injury, pain, and swelling, Cardiovascular: Negative for chest pain, palpitations, and edema, Respiratory: Negative for shortness of breath, cough, wheezing, and pleuritic chest pain, Back: Negative for injury and pain, : Negative for injury, bleeding, discharge, and swelling, MS/Extremity: Negative for injury and deformity, Skin: Negative for injury, rash, and discoloration, Neuro: Negative for headache, weakness, numbness, tingling, and seizure activity. Psych: Negative for depression, anxiety, suicide ideation, homicidal ideation, and hallucinations, Allergy/Immunology: Negative for hives, rash, and allergies, Endocrine: Negative for neck swelling, polydipsia, polyuria, polyphagia, and marked weight changes, Hematologic/Lymphatic: Negative for swollen nodes, abnormal bleeding, and unusual bruising. 21:41 Abdomen/GI: Positive for abdominal pain, nausea, Negative for constipation, abdominal distension, black/tarry stool, rectal pain, rectal bleeding. Exam: 21:39 ECG was reviewed by the Attending Physician. kdr 21:41 Constitutional: This is a well developed, well nourished patient who is awake, alert, kdr and in no acute distress. Head/Face: Normocephalic, atraumatic. Eyes: Pupils equal round and reactive to light, extra-ocular motions intact. Lids and lashes normal. Conjunctiva and sclera are non-icteric and not injected. Cornea within normal limits. Periorbital areas with no swelling, redness, or edema. Neck: Trachea midline, no thyromegaly or masses palpated, and no cervical lymphadenopathy. Supple, full range of motion without nuchal rigidity, or vertebral point tenderness. No Meningismus. Chest/axilla: Normal chest wall appearance and motion. Nontender with no deformity. No lesions are appreciated. Cardiovascular: Regular rate and rhythm with a normal S1 and S2. No gallops, murmurs, or rubs. Normal PMI, no JVD. No pulse deficits. Respiratory: Lungs have equal breath sounds bilaterally, clear to auscultation and percussion. No rales, rhonchi or wheezes noted. No increased work of breathing, no retractions or nasal flaring. Back: No spinal tenderness. No costovertebral tenderness. Full range of motion. Skin: Warm, dry with normal turgor. Normal color with no rashes, no lesions, and no evidence of cellulitis. MS/ Extremity: Pulses equal, no cyanosis. Neurovascular intact. Full, normal range of motion. Neuro: Awake and alert, GCS 15, oriented to person, place, time, and situation. Cranial nerves II-XII grossly intact. Motor strength 5/5 in all extremities. Sensory grossly intact. Cerebellar exam normal. Normal gait. Psych: Awake, alert, with orientation to person, place and time. Behavior, mood, and affect are within normal limits. 21:41 Abdomen/GI: Inspection: scar(s), are noted in the right upper quadrant, right lower quadrant and left lower quadrant, Bowel sounds: active, all quadrants, Palpation: soft, mild abdominal tenderness, in the right upper quadrant and right lower quadrant, mass, is not appreciated, rebound tenderness, is not appreciated. Vital Signs: 18:56 BP 133 / 99; Pulse 97; Resp 20 S; Temp 98.1(TE); Pulse Ox 100% on R/A; Weight 58.97 kg aa5 (R); Height 5 ft. 7 in. (R); 19:58 BP 136 / 102; Pulse 92; Resp 18; Pulse Ox 100% on R/A; kl 20:44 BP 132 / 96; Pulse 94; Resp 16; Pulse Ox 100% on R/A; ll3 21:24 BP 127 / 90; Pulse 82; Resp 12; Pulse Ox 99% on R/A; ll3 21:39 BP 127 / 90; Pulse 84; Resp 15; Pulse Ox 100% on R/A; kl 22:37 BP 136 / 87; Pulse 86; Resp 12; Pulse Ox 100% on R/A; ll3 23:44 BP 133 / 90; Pulse 92; Resp 12; Pulse Ox 100% on R/A; ll3 03/09 01:00 BP 131 / 80; Pulse 93; Resp 14; Pulse Ox 100% on R/A; ll3 02:39 BP 157 / 89; Pulse 92; Resp 14; Pulse Ox 100% on R/A; ll3 03/08 18:56 Body Mass Index 20.36 (58.97 kg, 170.18 cm) aa5 MDM: 03/08 21:41 Data reviewed: vital signs, nurses notes, lab test result(s), radiologic studies. kdr Consideration of Admission/Observation Escalation of care including admission/observation considered. 03/09 01:04 Patient medically screened. kdr 03/08 19:41 Order name: Basic Metabolic Panel kdr 03/08 19:41 Order name: CBC with Diff; Complete Time: 02:41 kdr 03/08 19:41 Order name: NT PRO-BNP; Complete Time: 20:53 kdr 03/08 19:41 Order name: Troponin HS; Complete Time: 20:53 kdr 03/08 19:41 Order name: CMP; Complete Time: 20:53 kdr 03/08 19:41 Order name: Lipase; Complete Time: 20:53 kdr 03/08 22:11 Order name: CBC Smear Scan; Complete Time: 02:41 EDMS 03/08 19:41 Order name: XRAY Chest (1 view); Complete Time: 21:38 kdr 03/09 01:08 Order name: CT Abd/Pelvis - IV Contrast Only kdr 03/08 19:41 Order name: EKG; Complete Time: 19:42 kdr 03/08 19:41 Order name: Cardiac monitoring; Complete Time: 21:22 kdr 03/08 19:41 Order name: EKG - Nurse/Tech; Complete Time: 21:22 kdr 03/08 19:41 Order name: IV Saline Lock; Complete Time: 20:42 kdr 03/08 19:41 Order name: Labs collected and sent; Complete Time: 20:42 kdr 03/08 19:41 Order name: O2 Per Protocol; Complete Time: 20:42 kdr 03/08 19:41 Order name: O2 Sat Monitoring; Complete Time: 20:42 kdr EC/24 21:39 Rate is 79 beats/min. Rhythm is regular, Sinus Rhythm with Unifocal PVCs. QRS [place] is kdr Normal. [place] interval is normal. QRS interval is normal. QT interval is normal. Clinical impression: NSR w/ Non-specific ST/T Changes. Administered Medications: 20:30 Drug: MethylPrednisoLONE IVP 125 mg Route: IVP; Site: left antecubital; kl 21:29 Follow up: Response: No adverse reaction kl 20:35 Drug: diphenhydrAMINE IVP 25 mg Route: IVP; Site: left antecubital; kl 21:29 Follow up: Response: No adverse reaction; Marked relief of symptoms kl 20:35 Drug: Famotidine IVP 20 mg Route: IVP; Site: left antecubital; kl 21:29 Follow up: Response: No adverse reaction kl 20:40 Drug: Promethazine IVP 25 mg Route: IVP; Site: left antecubital; kl 21:29 Follow up: Response: No adverse reaction; Marked relief of symptoms kl 20:44 Drug: HYDROmorphone IVP 1 mg Route: IVP; Site: left antecubital; kl 21:28 Follow up: Response: No adverse reaction; Marked relief of symptoms kl 22:14 Drug: HYDROmorphone IVP 1 mg Route: IVP; Site: left antecubital; kl 03/09 02:39 Follow up: Response: No adverse reaction ll3 03/08 23:45 Drug: diphenhydrAMINE IVP 12.5 mg Route: IVP; Site: left antecubital; ll3 03/09 02:39 Follow up: Response: No adverse reaction ll3 03/08 23:45 Drug: Promethazine IVP 12.5 mg Route: IVP; Site: left antecubital; ll3 03/09 02:39 Follow up: Response: No adverse reaction ll3 Disposition Summary: 03/09/23 02:12 Discharge Ordered Location: Home(03/09/23 02:12) kdr Problem: an acute exacerbation(03/09/23 02:12) kdr Symptoms: have improved(03/09/23 02:12) kdr Condition: Stable(03/09/23 02:12) kdr Diagnosis - Abdominal pain, Generalized(03/09/23 02:12) kdr - Upper abdominal pain, unspecified kdr - Crohn's disease, unspecified, without complications(03/09/23 02:12) kdr Followup: kdr - With: Private Physician - When: 2 - 3 days - Reason: If symptoms return, Further diagnostic work-up, Recheck today's complaints, Continuance of care, Re-evaluation by your physician Discharge Instructions: - Discharge Summary Sheet kdr - Crohn's Disease kdr - Abdominal Pain, Adult, [id number] kdr Forms: - Medication Reconciliation Form kdr - Thank You Letter kdr - Antibiotic Education kdr Prescriptions: - Flagyl 500 mg Oral Tablet - take 1 tablet by ORAL route every 12 hours for 7 days; 14 tablet; Refills: 0, kdr Product Selection Permitted - Cipro 500 mg Oral Tablet - take 1 tablet by ORAL route every 12 hours for 7 days; 14 tablet; Refills: 0, kdr Product Selection Permitted - promethazine 25 mg Oral Tablet - take 1 tablet by ORAL route every 6 hours As needed; 20 tablet; Refills: 0, kdr Product Selection Permitted Signatures: Dispatcher [employer] Claudia Krishnan, RN RN Dc Alexis MD MD kdr Ivelisse Connor RN RN aa5 Neela Dickinson RN RN ll3 Corrections: (The following items were deleted from the chart) : 01:04 Home kdr kdr 01:04 an acute exacerbation kdr kdr : 01:04 have improved kdr kdr : 01:04 Stable kdr kdr : 01:04 Abdominal pain, Generalized kdr kdr 01:04 Crohn's disease, unspecified, without complications kdr kdr
[2023-03-09 03:41] VITALS: TEMP 98.1
[2023-03-09 04:01] VITALS: O2SAT 100
[2023-03-09 04:06] VITALS: BP 157/89
--- NOTE | 2023-03-09 17:19 | RAD REPORT ---
EXAM DESCRIPTION: CT - Abdomen Pelvis W Contrast - 03/09/2023 6:38 am CLINICAL HISTORY: RUQ;Abd pain COMPARISON: 08/11/2022 TECHNIQUE: CT of the abdomen and pelvis performed following the administration of IV contrast. No or al contrast. This exam was performed according to our departmental dose-optimization program, which i ncludes automated exposure control, adjustment of the mA and/or kV according to patient size and/or u se of iterative reconstruction technique. FINDINGS: Lung Bases: Streaky basilar opacities probably representing atelectasis. Abdomen: Liver: Normal contour. Focal hypodensity adjacent to the falciform ligament may represent fatty infil tration or altered perfusion. There may also be mild focal fatty infiltration adjacent to the gallbla dder. No suspicious liver lesion identified. Gallbladder: No calcified gallstones. Spleen, Pancreas, and Adrenal Glands: The spleen, pancreas, and adrenal glands are unremarkable. Kidneys: No suspicious mass. No urinary tract calculi. No hydronephrosis. Vasculature: The aorta and IVC have normal caliber and position. Mild atherosclerotic plaque. Stomach: The stomach and duodenum have normal course. Other: No free intraperitoneal air. No significant free fluid or lymphadenopathy. Pelvis: Bladder: Urinary bladder is unremarkable. Bowel: No dilated loops of large or small bowel. No acute inflammatory process. Appendix: Not visualized, likely surgically absent. Pelvis: Status post hysterectomy. No mass. Bones: No destructive bone lesions identified. Degenerative changes of the hips, left greater than ri ght. IMPRESSION: No acute abnormality on CT of the abdomen and pelvis. Electronically signed by: Basilia Bonilla MD 03/09/2023 1:55 AM CDT Due to temporary technical issues with the PACS/Fluency reporting system, reports are being signed by the in house radiologists without review as a courtesy to insure prompt reporting. The interpreting radiologist is fully responsible for the content of the report.
--- NOTE | 2023-03-10 04:54 | EKG ---
Test Date: 2023-03-08 Test Time: 21:19:20 [employer] [employer] Attendant: KAREN MEASUREMENT RESULTS: Intervals: Rate: 79 IL: 164 QRSD: 82 QT: 404 QTc: 463 [place]: P: 66 IL: 164 QRS: 72 T: 61 INTERPRETIVE STATEMENTS: Normal sinus rhythm Normal ECG Compared to ECG 10/29/2022 02:37:34 Sinus tachycardia no longer present Electronically Signed On 03-10-23 04:52:15 CDT by Jordan El
== END 2023-03-09 02:40 | disposition home or self-care (01) ==
LOC: ER 18:28
DX: R10.84 Generalized abdominal pain (principal); R10.13 Epigastric pain; K50.90 Crohn's disease, unspecified, without complications
CPT/HCPCS: 36415; 71045; 74177; 80053; 83690; 83880; 84484; 85025; 93005; 96374; 96375; 99285; J1170; J1200; J2550; J2930; Q9967

== ENCOUNTER 2023-06-01 19:04 | Emergency (ER) | payer SELFPAY ==
--- OUTSIDE RECORDS SUMMARY | 2023-06-01 19:24 | XMS REPORT | Continuity of Care Document ---
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 (two) Medical times Branch daily for 7 days. HYDROcodone 2019- 2020- No [id number] 1{tbl} Take 1 U nivers -acetaminop 2-16 12-24 tablet by it y of hen (NORCO) 00:00: 05:59 mouth [place] 10-325 mg 00 :00 every 6 Medical tablet (six) Branch hours as needed for Pain (scale 7-10) for up to 7 days. Indication s: acute pain ALPRAZolam 2019-2019- No [id number] 2mg Take 1 [facility] 2 mg tablet 2-16 12-24 tablet by it y of 00:00: 05:59 mouth 2 [place] 00 :00 (two) Medical times Branch daily for 7 days. HYDROcodone 2019-2019- No [id number] 1{tbl} Take 1 U nivers -acetaminop 2-16 12-24 tablet by it y of hen (alike) 00:00: 05:59 mouth [place] 10-325 mg 00 :00 every 6 Medical tablet (six) Branch hours as needed for Pain (scale 7-10) for up to 7 days. Indication s: acute pain ALPRAZolam 2019-2019- No [id number] 2mg Take 1 [facility] 2 mg tablet 2-16 12-24 tablet by it y of 00:00: 05:59 mouth 2 [place] 00 :00 (two) Medical times Branch daily for 7 days. HYDROcodone 2019-11- No [id number] 1{tbl} Take 1 U nivers -acetaminop 2-16 12-24 tablet by it y of hen [employer] 00:00: 05:59 mouth [place] 10-325 mg 00 :00 every 6 Medical tablet (six) Branch hours as needed for Pain (scale 7-10) for up to 7 days. Indication s: acute pain ALPRAZolam 2019-2019- No [id number] 2mg Take 1 [facility] 2 mg tablet 2-16 12-24 tablet by it y of 00:00: 05:59 mouth 2 [place] 00 :00 (two) Medical times Branch daily for 7 days. HYDROcodone 2019-2019- No [id number] 1{tbl} Take 1 U nivers -acetaminop 2-16 12-24 tablet by it y of hen (alike) 00:00: 05:59 mouth [place] 10-325 mg 00 :00 every 6 Medical tablet (six) Branch hours as needed for Pain (scale 7-10) for up to 7 days. Indication s: acute pain ciprofloxac 2019- 2020- No [id number] 500mg Take 1 [facility] in HCl 500 2-16 12-16 tablet by ity of mg tablet 00:00: 00:00 mouth [place] 00 :00 every 12 Medical (twelve) Branch hours for 14 days. metroNIDAZO 2019- 2020- No [id number] 500mg Take 1 [facility] LE 500 mg 2-16 12-16 tablet by ity of tablet 00:00: 00:00 mouth [place] 00 :00 every 8 Medical (eight) Branch hours for 14 days. ciprofloxac 2019-11- No [id number] 500mg Take 1 Univers in HCl 500 2-16 12-16 tablet by ity of mg tablet 00:00: 00:00 mouth [place] 00 :00 every 12 Medical (twelve) Branch hours. metroNIDAZO 2019-11- No [id number] 500mg Take 1 [facility] LE 500 mg 2-16 12-16 tablet by ity of tablet 00:00: 00:00 mouth [place] 00 :00 every 8 Medical (eight) Branch hours. metoprolol 2019-11- No [id number] 25mg Take 1 U nivers tartrate 25 2-16 12-16 tablet by it y of mg tablet 00:00: 00:00 mouth 2 [place] 00 :00 (two) Medical times Branch daily. metroNIDAZO 2019-11 Yes 500mg 500 mg, Un thor LE (FLAGYL) 2-15 Oral, Q8H, it y of tablet 500 20:00: First dose [place] mg 00 on [facility] 10/29/20 Branch at 1400, Until Discontinu ed, Routine
Reason for Anti-Infec tive: Empiric Therapy for Suspected Infection< br>Empiric Therapy Site: Abdominal& lt;br>Dura tion of therapy: 7 days magnesium 2019-11- No 2g 2 g, IV Univ ers sulfate in 2-15 12-15 Piggyback, it y of water 2 17:45: 18:42 ONCE, 1 [place] gram/50 mL 00 :00 dose, [facility] (4 %) 10/29/20 Branch infusion 2 at 1145, g Routine HYDROmorpho 2019-11 Yes 2mg 2 mg, Unive rs ne 2-15 Oral, ity of (DILAUDID) 15:19: Q4HPRN, [place] tablet 2 mg 37 Starting Medi ryann [facility] 10/29/20 at 0919, Until Discontinu ed, Routine, Pain (scale 7-10) KCL 20 2019-11 Yes 40meq 40 mEq, Univers mEq/15 mL 2-15 Oral, ity of solution 40 15:00: DAILY, [place] mEq 00 First dose Medical on [facility] 10/29/20 at 0900, Until Discontinu ed, Routine HYDROmorpho 2019-11 2020- No .5mg 0.5 mg, Un thor ne 12-30 Slow IV ity of (DILAUDID) 07:37: 14:36 Push, [place] injection 39 :49 Q4HPRN, Medical 0.5 mg Starting Branch Wed10/29/20 at 0137, Until Wed10/29/20 at 0836, Routine, Pain (scale 7-10)
U se approved by (Faculty): GENERAL SURGERY
General surgeon approving: Phatak KCL 2019-11 2020- No 40meq 40 mEq, Univers (KLOR-CON 12-29 Oral, ity of M20) tablet 15:00: 13:15 DAILY, [place] 40 mEq 00 :49 First dose Medical on Wed Branch 10/28/20 at 0900, Until Discontinu ed, Routine KCL 2019- 2020- No 20meq 20 mEq, Univers (KLOR-CON 12-29 Oral, ity of M20) tablet 07:45: 06:54 ONCE, 1 [place] 20 mEq 00 :00 dose, [facility] Medical 10/28/20 Branch at 0145, Routine magnesium 2019- [...] mg Starting Branch 10/26/20 at 2346, Until Wed10/28/20 at 2345, Routine, Pain (scale 7-10)
U [...] First dose Medica l [facility] RTU on Wed Branch IV infusion 10/24/20 500 mg at [...] , Starting [place] 10/24/20 at 1845, Until e 10/29/20 at 1045, Routine HYDROmorpho 2019-11- No .5mg 0.5 mg, Un thor ne 12-2613 Slow IV ity of (DILAUDID) 00:32: 00:31 [...] delayed-rel daily. Branch ease suspension ALPRAZolam 2019-11 2mg Take 2 mg U nivers (XANAX) [...] on Wed Medical mg/15 mL 10/18/20 at [facility] h solution 10 2000, mg Until Discontinu ed, Routine HYDROcodone 2019-11 Yes [id number] 1{tbl} Take 1 Un thor -acetaminop 2-05 tablet by ity of hen (NORCO) 00:00: mouth [place] 10-325 mg 00 every 6 Medical tablet (six) Branch hours as needed for Pain (scale 7-10). Indication s: acute pain ibuprofen 2019-11 Yes [id number] 600mg Take 1 U nivers 600 mg 2-05 tablet by ity of tablet 00:00: mouth [place] 00 every 6 Medical (six) Branch hours as needed for Pain (scale 1-3). proMETHazin 2019-11 Yes [id number] 25mg Take 1 Univers e 25 mg [...] Indication s: acute pain ibuprofen 2019-11 Yes [id number] 600mg Take 1 U nivers 600 mg 2-05 tablet by ity of tablet 00:00: mouth [place] 00 every 6 Medical (six) Branch hours as needed for Pain (scale 1-3). proMETHazin 2019-11 Yes [id number] 25mg Take 1 Univers e 25 mg 2-05 tablet by ity of tablet 00:00: mouth [place] 00 every 8 Medical (eight) Branch hours as needed for Nausea and Vomiting (N/V). gabapentin 2019-11 2020- No [id number] 300mg Take 1 Univers 300 mg 2-05 12-20 capsule by ity of capsule 00:00: 05:59 mouth 3 [place] 00 :00 (three) Medical times Branch daily for 14 days. gabapentin 2019-11 2020- No [id number] 300mg Take 1 Univers 300 mg 2-05 [...] Indication s: acute pain ALPRAZolam 2019-11- No [id number] 2mg Take 1 Univers 2 mg tablet 2- 12-13 tablet by it y of 00:00: 05:59 mouth 2 [place] 00 :00 (two) Medical times Branch daily for 7 days. ALPRAZolam 2019-11 2020- No [id number] 2mg Take 1 Univers 2 mg tablet 2- 12-13 tablet by it y of 00:00: 05:59 mouth 2 [place] 00 :00 (two) Medical times Branch daily for 7 days. simethicone 2019- 2020- No [id number] 80mg Take 1 Univers 80 mg 2-05 12-11 tablet by ity of chewable 00:00: 05:59 mouth [place] tablet 00 :00 after Medical meals and Branch at bedtime for 5 days. simethicone 2019- 2020- No [id number] 80mg Take 1 Univers 80 mg 2-05 12-11 tablet by ity of chewable 00:00: 05:59 mouth [place] tablet 00 :00 after Medical meals and Branch at bedtime for 5 days. ibuprofen 2019- 2020- No [id number] 600mg Take 1 Univers 600 mg 2-05 12-10 tablet by ity of tablet 00:00: 00:00 mouth [place] 00 :00 every 6 Medical (six) Branch hours as needed for Pain (scale 1-3). simethicone 2019- 2020- No [id number] 80mg Take 1 Univers 80 mg 2-05 12-10 tablet by ity of chewable 00:00: 00:00 mouth [place] tablet 00 :00 after Medical meals and Branch at bedtime for 5 days. gabapentin 2019-11 2020- No [id number] 300mg Take 1 [facility] 300 mg 2-05 12-10 capsule by ity of capsule 00:00: 00:00 mouth 3 [place] 00 :00 (three) Medical times Branch daily for 14 days. ALPRAZolam 2019- 2020- No [id number] 2mg Take 1 Univers 2 mg tablet 2- 12-10 tablet by it y of 00:00: 00:00 mouth 2 [place] 00 :00 (two) Medical times Branch daily for 7 days. proMETHazin 2019- 2020- No [id number] 25mg Take 1 [facility] e 25 mg 2-05 12-10 tablet by ity of tablet 00:00: 00:00 mouth [place] 00 :00 every 8 Medical (eight) Branch hours as needed for Nausea and Vomiting (N/V). proMETHazin 2019-11 2020- No [id number] 25mg Take 1 Univers e 25 mg 12-20 tablet by ity of tablet 00:00: 00:00 mouth [place] 00 :00 every 4 Medical (four) Branch hours as needed for Nausea and Vomiting (N/V) for up to 7 days. HYDROmorpho 2019-11 Yes 1mg 1 mg, Slow Univers ne 2 IV [place], ity of (DILAUDID) 02:56: Q6HPRN, [place] injection 1 33 Starting Medi ryann mg [facility] Branch 10/17/20 at 2056, Until Discontinu ed, Routine, Pain (scale 7-10)
U se approved by (Faculty): GENERAL SURGERY
General surgeon approving: Darren Chun ALPRAZolam 2019-11 Yes .25mg 0.25 mg, Un thor (XANAX) 12-19 Oral, BID, ity of tablet 0.25 02:00: First dose [place] mg 00 on [facility] Medical 10/17/20 at Branch 2000, Until Discontinu ed, Routine HYDROcodone 2019-11- No 5mg 5 mg, Univ ers -acetaminop 12-18 Oral, Q4H, i ty of hen (HYCET) 22:00: 22:24 First dose [place] 7.5-325 00 :22 (after Medical mg/15 mL last Branch solution 5 modificati mg on) on [facility] 10/17/20 at 1600, Until Discontinu ed, Routine bisacodyL 2019-11 Yes 10mg 10 mg, Univer s (DULCOLAX) 12-18 Rectal, ity of suppository 03:00: QHSPRN, [place] 10 mg 00 Starting Medical [facility] Branch 10/16/20 at 2100, Until Discontinu ed, Routine, [...] dose Medi ryann 1,000 mg on Wed [place] 10/16/20 at 1400, Until Discontinu ed, Routine ibuprofen 2019-11 Yes 600mg 600 mg, Univ ers (IBU) 02 Oral, Q6H, ity of tablet 600 18:00: [...] [place] 10 mg 00 :00 dose, Wed [facility] 10/16/20 at Branch 0945, Routine melatonin 2019-11 Yes 3mg 3 mg, Univers (MELATIN) 12-17 Oral, QHS, ity of tablet 3 mg 03:00: First dose [place] 00 on [facility] 10/15/20 at Branch 2100, Until Discontinu ed, Routine acetaminoph 2019-11 2020- No 650mg 650 mg, U nivers en 12-16 Oral, Q8H, ity of (TYLENOL) 20:00: 14:59 First dose [place] 160 mg/5 mL 00 :29 on Wed Medica l liquid 650 10/15/20 at [facility] nch mg 1400, Until Discontinu ed, Routine HYDROcodone 2019-11 2020- No 5mg 5 mg, Univ ers -acetaminop 12-16 Oral, Q6H, i ty of hen (HYCET) 18:00: 19:51 First dose [place] 7.5-325 00 :24 (after Medical mg/15 mL last Branch solution 5 modificati mg on) on Wed10/15/20 at 1200, Until Discontinu ed, Routine HYDROMORPHO 2019-11 2020- No Unive rs 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 12-16 ity of 6MG/30ML 17:00: 14:57 [place] 00 :48 Medical Branch NaCl 0.9% 2019-11 Yes 10mL 10 mL, Univer s (NS) 12-16 Slow IV ity of injection 16:51: Push, PRN, [place] 10 mL 43 Starting Medical [facility] Branch 10/15/20 at 1051, Until Discontinu ed, Routine, line maintenanc e enoxaparin 2019-11 Yes 40mg 40 mg, Unive rs (LOVENOX) 12-16 Subcutaneo ity of injection 15:00: us, Q24H, [place] 40 mg 00 First dose Medical on [facility] 10/15/20 at 0900, Until Discontinu ed, Routine sennosides 2019-11- No 8.6mg 8.6 mg, Un thor (SENOKOT) 12-16 Oral, ity of tablet 8.6 15:00: 19:51 DAILY, [place] mg 00 :23 First dose Medical on [facility] 10/15/20 at 0900, Until Discontinu ed, Routine docusate 2019-11- No 100mg 100 mg, Univ ers (COLACE) 12-16 Oral, ity of capsule 100 15:00: 19:51 DAILY, [place] mg 00 :23 First dose Medical on [facility] 10/15/20 at 0900, Until Discontinu ed, Routine HYDROcodone 2019-11- No 5mg 5 mg, Univ ers -acetaminop 12-16 Oral, ity of hen (HYCET) 14:06: 16:54 Q6HPRN, [place] 7.5-325 01 :51 Starting Medical mg/15 mL [facility] Branch solution 5 10/15/20 at mg 0806, Until 10/15/20 at 1054, Routine, Pain (scale 4-6) proMETHazin 2019-11 Yes 25mg 25 mg, IV U nivers e 12-16 Piggyback, ity of (PHENERGAN) 03:57: Q8HPRN, [place] 25 mg in 05 Starting Medical NaCl 0.9% Mon Branch (NS) 50 mL 10/14/20 IV at 2156, piggyback Until Discontinu ed, Routine, Nausea and Vomiting (N/V) HYDROMORPHO 2019-11- No 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
Indicatio n: Perioperat jane Patient morpHINE 30 2019-11- No Unive rs mg/30 mL 12-14 ity of (fixed 17:30: 01:59 [place] dose) BICYCLE RENTAL CLERK 00 :31 Medical injection Branch lactated 2019-11- No 1000mL at 75 Unive rs ringers IV 12-14 12-02 mL/hr, ity of infusion 16:45: 12:05 1,000 mL, [place] 1,000 mL 00 :02 IV Medical Infusion, Branch CONTINUOUS , Starting 10/14/20 at 1045, Until 10/16/20 at 0605, Routine, PACU diphenhydrA 2019-11- No 12.5mg 12.5 mg, Univers MINE 12-14 Slow IV ity of (BENADRYL) 16:32: 18:15 Push, [place] injection 01 :20 Q4HPRN, Medical 12.5 mg Starting Branch Wed10/14/20 at 1032, Until Wed10/14/20 at 1215, Routine, Itching, PACU HYDROmorpho 2019-11- No .2mg 0.2 mg, Un thor ne 12-14 Slow IV ity of (DILAUDID) 16:32: 18:15 Push, [place] injection 00 :20 Q5MIN PRN, Medi ryann 0.2 mg 10 doses, Branch Starting 10/14/20 at 1032, Until Wed10/14/20 at 1215, Routine, [...] Medical delayed-rel daily. Branch ease suspension heparin 2019-11 2020- No 5000U 5,000 Univers (porcine) 12-14 Units, ity of injection 12:45: 12:42 Subcutaneo [place] 5,000 Units 00 :00 us, ONCE, Med ical 1 dose, Branch [facility] 10/14/20 at 0645, Routine, DSU Pre-op gabapentin 2019-11- No 300mg 300 mg, Un thor (NEURONTIN) 12-14 Oral, O.R. i ty of capsule 300 12:41: 12:43 HOLDING [place] mg 22 :00 ONCE, 1 Medical dose, Branch Starting 10/14/20 at 0641, Until Discontinu ed, Routine, Surgery/Pr [...] 2 ity of mg tablet 11:48: (two) [place] 52 times Medical daily. [place] ALPRAZolam 2019-11 Yes 2mg Take 2 mg Un thor (XANAX) 2 -23 by mouth 2 ity of mg tablet 22:40: (two) [place] 26 times Medical daily. [place] ALPRAZolam 2019-11 Yes 2mg Take 2 mg Un thor (XANAX) 2 -23 by mouth 2 ity of mg tablet 22:40: (two) [place] 26 times Medical daily. [place] ALPRAZolam 2019-11 Yes 2mg Take 2 mg [...] delayed-rel daily. Branch ease suspension proMETHazin 2019-11 No 25mg 25 mg, IV [...] 40 mg 04 times Medical delayed-rel daily. Anjali ease suspension opium 10 2019-11 Yes [id number] 1mL Take 1 mL Univers mg/mL 1-13 by mouth ity of (morphine) 00:00: every 6 [place] tincture 00 (six) Medical hours. Branch opium 10 2019-11 Yes [id number] 1mL Take 1 mL Univers mg/mL 1-13 by mouth ity of (morphine) 00:00: every 6 [place] tincture 00 (six) Medical hours. Branch opium 10 2019-11 Yes [id number] 1mL Take 1 mL Univers mg/mL 1-13 by mouth ity of (morphine) 00:00: every 6 [place] tincture 00 (six) Medical hours. Branch opium 10 2019-11 Yes [id number] 1mL Take 1 mL Univers mg/mL 1-13 by mouth ity of (morphine) 00:00: every 6 [place] tincture 00 (six) Medical hours. Branch opium 2019-11 Yes [id number] 1mL Take 1 mL Univers mg/mL 1-13 by mouth ity of (morphine) 00:00: every 6 [place] tincture 00 (six) Medical hours. Branch opium 10 2019-11 Yes [id number] 1mL Take 1 mL Univers mg/mL 1-13 by mouth ity of (morphine) 00:00: every 6 [place] tincture 00 (six) Medical hours. Branch opium 10 2019-11 Yes [id number] 1mL Take 1 mL Univers mg/mL 1-13 by mouth ity of (morphine) 00:00: every 6 [place] tincture 00 (six) Medical hours. Branch opium 10 2019-11 Yes [id number] 1mL Take 1 mL Univers mg/mL 1-13 by mouth ity of (morphine) 00:00: every 6 [place] tincture 00 (six) Medical hours. Branch opium 10 2019-11 Yes [id number] 1mL Take 1 mL Univers mg/mL 1-13 by mouth ity of (morphine) 00:00: every 6 [place] tincture 00 (six) Medical hours. Branch opium 10 2019-11 Yes [id number] 1mL Take 1 mL Univers mg/mL 1-13 by mouth ity of (morphine) 00:00: every 6 [place] tincture 00 (six) Medical hours. Branch opium 10 2019-11 Yes [id number] 1mL Take 1 mL Univers mg/mL 1-13 by mouth ity of (morphine) 00:00: every 6 [place] tincture 00 (six) Medical hours. Branch opium 10 2019-11 Yes [id number] 1mL Take 1 mL Univers mg/mL 1-13 by mouth ity of (morphine) 00:00: every 6 [place] tincture 00 (six) Medical hours. Branch opium 10 2019-11 Yes [id number] 1mL Take 1 mL Univers mg/mL 1-13 by mouth ity of (morphine) 00:00: every 6 [place] tincture 00 (six) Medical hours. Branch opium 2019-11 Yes [id number] 1mL Take 1 mL Univers mg/mL 1-13 by mouth ity of (morphine) 00:00: every 6 [place] tincture 00 (six) Medical hours. Branch opium 2019-11 Yes [id number] 1mL Take 1 mL Univers mg/mL 1-13 by mouth ity of (morphine) 00:00: every 6 [place] tincture 00 (six) Medical hours. Branch opium 2019-11 Yes [id number] 1mL Take 1 mL Univers mg/mL 1-13 by mouth ity of (morphine) 00:00: every 6 [place] tincture 00 (six) Medical hours. Branch opium 10 2019-11 Yes [id number] 1mL Take 1 mL Univers mg/mL 1-13 by mouth ity of (morphine) 00:00: every 6 [place] tincture 00 (six) Medical hours. Branch opium 10 2019-11 Yes [id number] 1mL Take 1 mL Univers mg/mL 1-13 by mouth ity of (morphine) 00:00: every 6 [place] tincture 00 (six) Medical hours. Branch opium 10 2019-11 Yes [id number] 1mL Take 1 mL Univers mg/mL 1-13 by mouth ity of (morphine) 00:00: every 6 [place] tincture 00 (six) Medical hours. Branch opium 10 2019-11 Yes [id number] 1mL Take 1 mL Univers mg/mL 1-13 by mouth ity of (morphine) 00:00: every 6 [place] tincture 00 (six) Medical hours. Branch opium 10 2019-11 Yes [id number] 1mL Take 1 mL Univers mg/mL 1-13 by mouth ity of (morphine) 00:00: every 6 [place] tincture 00 (six) Medical hours. Branch opium 10 2019-11 Yes [id number] 1mL Take 1 mL Univers mg/mL 1-13 by mouth ity of (morphine) 00:00: every 6 [place] tincture 00 (six) Medical hours. Branch opium 10 2019-11 Yes [id number] 1mL Take 1 mL Univers mg/mL 1-13 by mouth ity of (morphine) 00:00: every 6 [place] tincture 00 (six) Medical hours. Branch opium 10 2019-11 Yes [id number] 1mL Take 1 mL Univers mg/mL 1-13 by mouth ity of (morphine) 00:00: every 6 [place] tincture 00 (six) Medical hours. Branch opium 10 2019-11 Yes [id number] 1mL Take 1 mL Univers mg/mL 1-13 by mouth ity of (morphine) 00:00: every 6 [place] tincture 00 (six) Medical hours. Branch opium 10 2019-11 Yes [id number] 1mL Take 1 mL Univers mg/mL 1-13 by mouth ity of (morphine) 00:00: every 6 [place] tincture 00 (six) Medical hours. Branch opium 10 2019-11 Yes [id number] 1mL Take 1 mL Univers mg/mL 1-13 by mouth ity of (morphine) 00:00: every 6 [place] tincture 00 (six) Medical hours. Branch opium 10 2019-11 Yes [id number] 1mL Take 1 mL Univers mg/mL 1-13 by mouth ity of (morphine) 00:00: every 6 [place] tincture 00 (six) Medical hours. Branch psyllium 2019-11 2020- No [id number] 1{packe Take 1 Univers 3.4 gram 1-13 12-14 t} Packet by ity o f packet 00:00: 05:59 mouth 3 [place] 00 :00 (three) Medical times Branch daily before meals for 30 days. psyllium 2019-11- No [id number] 1{packe Take 1 Univers 3.4 gram 1-13 12-14 t} Packet by ity o f packet 00:00: 05:59 mouth 3 [place] 00 :00 (three) Medical times Branch daily before meals for 30 days. psyllium 2019-11- No [id number] 1{packe Take 1 Univers 3.4 gram 1-13 12-14 t} Packet by ity o f packet 00:00: 05:59 mouth 3 [place] 00 :00 (three) Medical times Branch daily before meals for 30 days. psyllium 2019-11- No [id number] 1{packe Take 1 Univers 3.4 gram 1-13 12-14 t} Packet by ity o f packet 00:00: 05:59 mouth 3 [place] 00 :00 (three) Medical times Branch daily before meals for 30 days. psyllium 2019-11- No [id number] 1{packe Take 1 Univers 3.4 gram -13 12-14 t} Packet by ity o f packet 00:00: 05:59 mouth 3 [place] 00 :00 (three) Medical times Branch daily before meals for 30 days. psyllium 2019-11- No [id number] 1{packe Take 1 Univers 3.4 gram -13 12-14 t} Packet by ity o f packet 00:00: 05:59 mouth 3 [place] 00 :00 (three) Medical times Branch daily before meals for 30 days. psyllium 2019-11- No [id number] 1{packe Take 1 Univers 3.4 gram -13 12-14 t} Packet by ity o f packet 00:00: 05:59 mouth 3 [place] 00 :00 (three) Medical times Branch daily before meals for 30 days. psyllium 2019-11- No [id number] 1{packe Take 1 Univers 3.4 gram 1-13 12-14 t} Packet by ity o f packet 00:00: 05:59 mouth 3 [place] 00 :00 (three) Medical times Branch daily before meals for 30 days. psyllium 2019-11- No [id number] 1{packe Take 1 Univers 3.4 gram 1-13 12-14 t} Packet by ity o f packet 00:00: 05:59 mouth 3 [place] 00 :00 (three) Medical times Branch daily before meals for 30 days. psyllium 2019-11- No [id number] 1{packe Take 1 Univers 3.4 gram 1-13 12-14 t} Packet by ity o f packet 00:00: 05:59 mouth 3 [place] 00 :00 (three) Medical times Branch daily before meals for 30 days. psyllium 2019-11- No [id number] 1{packe Take 1 Univers 3.4 gram 1-13 12-14 t} Packet by ity o f packet 00:00: 05:59 mouth 3 [place] 00 :00 (three) Medical times Branch daily before meals for 30 days. psyllium 2019-11- No [id number] 1{packe Take 1 Univers 3.4 gram 1-13 12-14 t} Packet by ity o f packet 00:00: 05:59 mouth 3 [place] 00 :00 (three) Medical times Branch daily before meals for 30 days. psyllium 2019-11- No [id number] 1{packe Take 1 Univers 3.4 gram 1-13 12-14 t} Packet by ity o f packet 00:00: 05:59 mouth 3 [place] 00 :00 (three) Medical times Branch daily before meals for 30 days. psyllium 2019-11- No [id number] 1{packe Take 1 Univers 3.4 gram 1-13 12-14 t} Packet by ity o f packet 00:00: 05:59 mouth 3 [place] 00 :00 (three) Medical times Branch daily before meals for 30 days. psyllium 2019-11- No [id number] 1{packe Take 1 Univers 3.4 gram 1-13 12-10 t} Packet by ity o f packet 00:00: 00:00 mouth 3 [place] 00 :00 [...] No .5mg 0.5 mg, Un thor ne 11-1804 Slow IV ity of (DILAUDID) 01:15: 00:26 Push, [place] injection 00 :00 ONCE, 1 Medical 0.5 mg dose, Wed Branch 09/17/20 at 1915, Routine
Use approved [...] Indication s: acute pain proMETHazin 2019-11- No [id number] 25mg Take 1 Univers e 25 mg 1-04 11-25 tablet by ity of tablet 00:00: 05:59 mouth [place] 00 :00 every 6 Medical (six) Branch hours as needed for Nausea and Vomiting (N/V) for up to 20 days. proMETHazin 2019-11 2020- No [id number] 25mg Take 1 Univers e 25 mg 1-04 11-25 tablet by ity of tablet 00:00: 05:59 mouth [place] 00 :00 every 6 Medical (six) Branch hours as needed for Nausea and Vomiting (N/V) for up to 20 days. proMETHazin 2019-11- No [id number] 25mg Take 1 Univers e 25 mg 1-04 11-25 tablet by ity of tablet 00:00: 05:59 mouth [place] 00 :00 every 6 Medical (six) Branch hours as needed for Nausea and Vomiting (N/V) for up to 20 days. proMETHazin 2019- 2020- No [id number] 25mg Take 1 Univers e 25 mg 1-04 11-25 tablet by ity of tablet 00:00: 05:59 mouth [place] 00 :00 every 6 Medical (six) Branch hours as needed for Nausea and Vomiting (N/V) for up to 20 days. proMETHazin 2019-2019- No [id number] 25mg Take 1 Univers e 25 mg 1-04 11-25 tablet by ity of tablet 00:00: 05:59 mouth [place] 00 :00 every 6 Medical (six) Branch hours as needed for Nausea and Vomiting (N/V) for up to 20 days. proMETHazin 2019-2019- No [id number] 25mg Take 1 Univers e 25 mg 1-04 11-25 tablet by ity of tablet 00:00: 05:59 mouth [place] 00 :00 every 6 Medical (six) Branch hours as needed for Nausea and Vomiting (N/V) for up to 20 days. proMETHazin 2019-2019- No [id number] 25mg Take 1 Univers e 25 mg 1-04 11-25 tablet by ity of tablet 00:00: 05:59 mouth [place] 00 :00 every 6 Medical (six) Branch hours as needed for Nausea and Vomiting (N/V) for up to 20 days. proMETHazin 2019-2019- No [id number] 25mg Take 1 Univers e 25 mg 1-04 11-25 tablet by ity of tablet 00:00: 05:59 mouth [place] 00 :00 every 6 Medical (six) Branch hours as needed for Nausea and Vomiting (N/V) for up to 20 days. proMETHazin 2019-2019- No [id number] 25mg Take 1 Univers e 25 mg 1-04 11-25 tablet by ity of tablet 00:00: 05:59 mouth [place] 00 :00 every 6 Medical (six) Branch hours as needed for Nausea and Vomiting (N/V) for up to 20 days. proMETHazin 2019-2019- No [id number] 25mg Take 1 Univers e 25 mg 1-04 11-25 tablet by ity of tablet 00:00: 05:59 mouth [place] 00 :00 every 6 Medical (six) Branch hours as needed for Nausea and Vomiting (N/V) for up to 20 days. proMETHazin 2019- 2020- No [id number] 25mg Take 1 [facility] 25 mg 1-04 11-25 tablet by ity of tablet 00:00: 05:59 mouth [place] 00 :00 every 6 Medical (six) Branch hours as needed for Nausea and Vomiting (N/V) for up to 20 days. proMETHazin 2019- 2020- No [id number] 25mg Take 1 [facility] e 25 mg 1-04 11-25 tablet by ity of tablet 00:00: 05:59 mouth [place] 00 :00 every 6 Medical (six) Branch hours as needed for Nausea and Vomiting (N/V) for up to 20 days. proMETHazin 2019- 2020- No [id number] 25mg Take 1 [facility] e 25 mg 1-04 11-25 tablet by ity of tablet 00:00: 05:59 mouth [place] 00 :00 every 6 Medical (six) Branch hours as needed for Nausea and Vomiting (N/V) for up to 20 days. proMETHazin 2019- 2020- No [id number] 25mg Take 1 [facility] e 25 mg -04 11-25 tablet by ity of tablet 00:00: 05:59 mouth [place] 00 :00 every 6 Medical (six) Branch hours as needed for Nausea and Vomiting (N/V) for up to 20 days. HYDROmorphO 2019-2019- No 1mg 1 mg, Slow Univers ne 11-17 IV Push, ity of (DILAUDID) 16:15: 15:22 ONCE, 1 [place] injection 1 00 :00 dose, Tue Med ical mg 09/17/20 at Branch 1015, Routine
Use approved by (Faculty): ADC PROVIDER HYDROmorpho 2019-11 2020- No 1mg 1 mg, [...] Medica l L) dose, Sun Branch injection 11/1/20 at 125 mg 0245, Routine HYDROcodone 2019-11- [...] 1 Discontinu tablet ed, Routine magnesium 2019-11 No 400mg 400 mg, Uni vers oxide 0-31 1031 Oral, ONCE ity of (MAG-OX 18:15: 19:50 NOW, 1 [place] 400) tablet 00 :00 dose, Sat Med ical 400 mg 09/14/20 Branch at 1315, Routine HYDROcodone 2020-1 2020- No 1{tbl} 1 tablet, Univers -acetaminop [...] 2019-11- No 12.5mg 12.5 mg, Univers e 009-16 IV ity of (PHENERGAN) 01:23: 18:35 Piggyback, [place] 12.5 mg in 35 :16 Q4HPRN, Medica l NaCl 0.9% Starting Branch (NS) 50 mL Fri IV 09/13/20 piggyback at 2022, Until 09/16/20 at 1235, Routine, Nausea and Vomiting (N/V) metoprolol 2019-11- No 25mg 25 mg, Univ ers tartrate 003 Oral, BID, ity of (LOPRESSOR) 01:00: 23:43 [...] Branch 09/13/20 at 1652, Until 09/13/20 at 2023, Routine, Nausea and Vomiting (N/V) morpHINE 2019- [...] Medical delayed-rel daily. Branch ease suspension diphenhydrA 2019-11- No 12.5mg 12.5 mg, Univers MINE 0-30 10-31 Slow IV ity of (BENADRYL) 21:14: 14:27 Push, [place] injection 00 :41 Q6HPRN, Medical 12.5 mg Starting Branch 09/13/20 at 1614, Until 09/14/20 at 0927, Routine, Itching acetaminoph 2019-11 Yes 650mg 650 mg, Un thor en 0-30 Oral, ity of (TYLENOL) 20:56: Q6HPRN, [place] tablet 650 54 Starting Medic al mg [...] IV ity of (PF)) 19:15: 18:11 Push, [place] injection 00 :00 ONCE, 1 Medical 20 [...] IV Medical Infusion, Branch ONCE, 1 dose, [place] 09/01/20 at 0300, STAT diphenhydrA 2019-11- No [...] Medical 09/01/20 Branch at 0300, STAT iohexol 2020-1 2020- No 60mL 60 mL, Univers (OMNIPAQUE 0-10 10-10 Intravenou it y of 350 BULK-75 01:45: 01:45 s, ONCE, 1 [place] mL) 00 :00 dose, Fri Medical injection 08/23/20 at Bran ch 60 mL 2045, Routine diphenhydrA 2019-11- No 12.5mg 12.5 mg, Univers MINE 0-10 10-09 Slow IV ity of (BENADRYL) 00:00: 23:44 Push, [place] injection 00 :00 ONCE, 1 Medical 12.5 mg dose, Fri [place] 08/23/20 at 1900, STAT morpHINE 2019-11- No [...] 1,000 mL 00 :00 IV Medical Infusion, [place] ONCE, 1 dose, 08/23/20 at 1845, STAT [...] 40 mg 37 times Medical delayed-rel daily. [place] ease suspension proMETHazin 2019-11- No 25mg 25 mg, IV [facility] e 0-04 10-04 Piggyback, ity of (PHENERGAN) 04:15: 04:15 ONCE, 1 [place] 25 mg in 00 :00 dose, Sat Medica l NaCl 0.9% 08/17/20 at [facility] (NS) 50 mL 2315, 50 piggyback mL morpHINE 2019-11- No 4mg 4 mg, Slow Un thor injection 4 0-04 10-04 IV Push, ity of mg 04:15: 03:25 ONCE, 1 [place] 00 :00 dose, Sat Medical 08/17/20 at [place] 2315, STAT NaCl 0.9% 2019-11 2020- No 500mL at [address] [place] [address] ers (NS) bolus 0-04 10-04 mL/hr, 500 it y of infusion 04:15: 05:26 mL, IV [place] 500 mL 00 :00 Infusion, Medical ONCE, 1 [place] dose, 08/17/20 at 2315, STAT iohexol 2019-11 [...] at 2115, Until Discontinu ed, Routine proMETHazin 2019-11 2020- No 25mg 25 mg, IV Univers e 0-08-18 Piggyback, ity of (PHENERGAN) 02:15: 01:24 ONCE, 1 [place] 25 mg in 00 :00 dose, Sat Medica l NaCl 0.9% 08/17/20 at [facility] ch (NS) 50 mL 2114, 50 piggyback mL morpHINE 2019-11- No 4mg 4 mg, Slow Un thor injection 4 008-18 IV Push, ity of mg 02:15: 01:24 ONCE, 1 [place] 00 :00 dose, [facility] 08/17/20 at Branch 2115, STAT diphenhydrA 2019-11 2020- No 25mg 25 mg, Uni vers MINE 0-08-18 Slow IV ity of (BENADRYL) 02:15: 01:24 Push, [place] injection 00 :00 ONCE, 1 Medical 25 mg dose, Sat Branch 08/17/20 at 2115, STAT proMETHazin 2019-11 Yes [id number] 25mg Take 1 [facility] e 25 mg 0-03 tablet by ity of tablet 00:00: mouth [place] 00 every 6 Medical (six) Branch hours as needed for Nausea and Vomiting (N/V). proMETHazin 2019- Yes [id number] 25mg Take 1 [facility] e 25 mg 0-03 tablet by ity of tablet 00:00: mouth [place] 00 every 6 Medical (six) Branch hours as needed for Nausea and Vomiting (N/V). proMETHazin 2019- Yes [id number] 25mg Take 1 [facility] e 25 mg 0-03 tablet by ity of tablet 00:00: mouth [place] 00 every 6 Medical (six) Branch hours as needed for Nausea and Vomiting (N/V). proMETHazin 2019- Yes [id number] 25mg Take 1 [facility] e 25 mg 0-03 tablet by ity of tablet 00:00: mouth [place] 00 every 6 Medical (six) Branch hours as needed for Nausea and Vomiting (N/V). proMETHazin 2019- Yes [id number] 25mg Take 1 [facility] e 25 mg 0-03 tablet by ity of tablet 00:00: mouth [place] 00 every 6 Medical (six) Branch hours as needed for Nausea and Vomiting (N/V). proMETHazin 2019-11 Yes [id number] 25mg Take 1 [facility] e 25 mg 0-03 tablet by ity of tablet 00:00: mouth [place] 00 every 6 Medical (six) Branch hours as needed for Nausea and Vomiting (N/V). proMETHazin 2019-11 Yes [id number] 25mg Take 1 [facility] e 25 mg 0-03 tablet by ity of tablet 00:00: mouth [place] 00 every 6 Medical (six) Branch hours as needed for Nausea and Vomiting (N/V). proMETHazin 2019-11 Yes [id number] 25mg Take 1 [facility] e 25 mg 0-03 tablet by ity of tablet 00:00: mouth [place] 00 every 6 Medical (six) Branch hours as needed for Nausea and Vomiting (N/V). proMETHazin 2019-11 Yes [id number] 25mg Take 1 [facility] e 25 mg 0-03 tablet by ity of tablet 00:00: mouth [place] 00 every 6 Medical (six) Branch hours as needed for Nausea and Vomiting (N/V). proMETHazin 2019- Yes [id number] 25mg Take 1 [facility] e 25 mg 0-03 tablet by ity of tablet 00:00: mouth [place] 00 every 6 Medical (six) Branch hours as needed for Nausea and Vomiting (N/V). proMETHazin 2019- Yes [id number] 25mg Take 1 [facility] e 25 mg 0-03 tablet by ity of tablet 00:00: mouth [place] 00 every 6 Medical (six) Branch hours as needed for Nausea and Vomiting (N/V). proMETHazin 2019- Yes [id number] 25mg Take 1 [facility] e 25 mg 0-03 tablet by ity of tablet 00:00: mouth [place] 00 every 6 Medical (six) Branch hours as needed for Nausea and Vomiting (N/V). proMETHazin 2019- Yes [id number] 25mg Take 1 [facility] e 25 mg 0-03 tablet by ity of tablet 00:00: mouth [place] 00 every 6 Medical (six) Branch hours as needed for Nausea and Vomiting (N/V). proMETHazin 2019- Yes [id number] 25mg Take 1 [facility] e 25 mg 0-03 tablet by ity of tablet 00:00: mouth [place] 00 every 6 Medical (six) Branch hours as needed for Nausea and Vomiting (N/V). proMETHazin 2019- Yes [id number] 25mg Take 1 [facility] e 25 mg 0-03 tablet by ity of tablet 00:00: mouth [place] 00 every 6 Medical (six) Branch hours as needed for Nausea and Vomiting (N/V). proMETHazin 2019- Yes [id number] 25mg Take 1 [facility] e 25 mg 0-03 tablet by ity of tablet 00:00: mouth [place] 00 every 6 Medical (six) Branch hours as needed for Nausea and Vomiting (N/V). proMETHazin 2019- Yes [id number] 25mg Take 1 [facility] e 25 mg 0-03 tablet by ity of tablet 00:00: mouth [place] 00 every 6 Medical (six) Branch hours as needed for Nausea and Vomiting (N/V). proMETHazin 2019-1 Yes [id number] 25mg Take 1 [facility] e 25 mg 0-03 tablet by ity of tablet 00:00: mouth [place] 00 every 6 Medical (six) Branch hours as needed for Nausea and Vomiting (N/V). proMETHazin 2019-1 Yes [id number] 25mg Take 1 [facility] e 25 mg 0-03 tablet by ity of tablet 00:00: mouth [place] 00 every 6 Medical (six) Branch hours as needed for Nausea and Vomiting (N/V). proMETHazin 2019-11 2020- No [id number] 25mg Take 1 [facility] e 25 mg [...] s tablet 2 mg 00 Starting Medi [facility] Branch 08/01/20 at 0700, Until Discontinu ed, Routine, Pain (scale 7-10) ibuprofen 2020-0 Yes [id number] 600mg Take 1 [facility] 600 mg 9-17 tablet by ity of tablet 00:00: mouth [place] 00 every 6 Medical (six) Branch hours. loperamide 2020-0 Yes [id number] 2mg Take 1 [facility] 2 mg 9-17 capsule by ity of capsule 00:00: mouth [place] 00 daily. Medical Branch methocarbam 2020-0 Yes [id number] 500mg Take 1 [facility] oL 500 mg 9-17 tablet by ity o f tablet 00:00: mouth 4 00 (four) Medical times Branch daily. ibuprofen 2020-0 Yes [id number] 600mg Take 1 [facility] 600 mg 9-17 tablet by ity of tablet 00:00: mouth [place] 00 every 6 Medical (six) Branch hours. loperamide 2020-0 Yes [id number] 2mg Take 1 [facility] 2 mg 9-17 capsule by ity of capsule 00:00: mouth [place] 00 daily. Medical Branch methocarbam 2020-0 Yes [id number] 500mg Take 1 [facility] oL 500 mg 9-17 tablet by ity o f tablet 00:00: mouth 4 00 (four) Medical times Branch daily. ibuprofen 2020-0 Yes [id number] 600mg Take 1 [facility] 600 mg 9-17 tablet by ity of tablet 00:00: mouth [place] 00 every 6 Medical (six) Branch hours. loperamide 2020-0 Yes [id number] 2mg Take 1 [facility] 2 mg 9-17 capsule by ity of capsule 00:00: mouth [place] 00 daily. Medical Branch methocarbam 2020-0 Yes [id number] 500mg Take 1 [facility] oL 500 mg 9-17 tablet by ity o f tablet 00:00: mouth 4 [place] 00 (four) Medical times Branch daily. ibuprofen 2020-0 Yes [id number] 600mg Take 1 [facility] 600 mg 9-17 tablet by ity of tablet 00:00: mouth [place] 00 every 6 Medical (six) Branch hours. loperamide 2020-0 Yes [id number] 2mg Take 1 [facility] 2 mg 9-17 capsule by ity of capsule 00:00: mouth [place] 00 daily. Medical Branch methocarbam 2020-0 Yes [id number] 500mg Take 1 [facility] oL 500 mg 9-17 tablet by ity o f tablet 00:00: mouth 00 (four) Medical times Branch daily. ibuprofen 2020-0 Yes [id number] 600mg Take 1 [facility] 600 mg 9-17 tablet by ity of tablet 00:00: mouth [place] 00 every 6 Medical (six) Branch hours. loperamide 2020-0 Yes [id number] 2mg Take 1 [facility] 2 mg 9-17 capsule by ity of capsule 00:00: mouth [place] 00 daily. Medical Branch methocarbam 2020-0 Yes [id number] 500mg Take 1 [facility] oL 500 mg 9-17 tablet by ity o f tablet 00:00: mouth (four) Medical times Branch daily. ibuprofen 2020-0 Yes [id number] 600mg Take 1 [facility] 600 mg 9-17 tablet by ity of tablet 00:00: mouth [place] 00 every 6 Medical (six) Branch hours. loperamide 2020-0 Yes [id number] 2mg Take 1 [facility] 2 mg 9-17 capsule by ity of capsule 00:00: mouth [place] 00 daily. Medical Branch methocarbam 2020-0 Yes [id number] 500mg Take 1 [facility] oL 500 mg 9-17 tablet by ity o f tablet 00:00: mouth (four) Medical times Branch daily. ibuprofen 2020-0 Yes [id number] 600mg Take 1 [facility] 600 mg 9-17 tablet by ity of tablet 00:00: mouth [place] 00 every 6 Medical (six) Branch hours. loperamide 2020-0 Yes [id number] 2mg Take 1 [facility] 2 mg 9-17 capsule by ity of capsule 00:00: mouth [place] 00 daily. Medical Branch methocarbam 2020-0 Yes [id number] 500mg Take 1 [facility] oL 500 mg 9-17 tablet by ity o f tablet 00:00: mouth (four) Medical times Branch daily. ibuprofen 2020-0 Yes [id number] 600mg Take 1 [facility] 600 mg 9-17 tablet by ity of tablet 00:00: mouth [place] 00 every 6 Medical (six) Branch hours. loperamide 2020-0 Yes [id number] 2mg Take 1 [facility] 2 mg 9-17 capsule by ity of capsule 00:00: mouth [place] 00 daily. Medical Branch methocarbam 2020-0 Yes [id number] 500mg Take 1 [facility] oL 500 mg 9-17 tablet by ity o f tablet 00:00: mouth (four) Medical times Branch daily. ibuprofen 2020-0 Yes [id number] 600mg Take 1 [facility] 600 mg 9-17 tablet by ity of tablet 00:00: mouth [place] 00 every 6 Medical (six) Branch hours. loperamide 2020-0 Yes [id number] 2mg Take 1 [facility] 2 mg 9-17 capsule by ity of capsule 00:00: mouth [place] 00 daily. Medical Branch methocarbam 2020-0 Yes [id number] 500mg Take 1 [facility] oL 500 mg 9-17 tablet by ity o f tablet 00:00: mouth (four) Medical times Branch daily. ibuprofen 2020-0 Yes [id number] 600mg Take 1 [facility] 600 mg 9-17 tablet by ity of tablet 00:00: mouth [place] 00 every 6 Medical (six) Branch hours. loperamide 2020-0 Yes [id number] 2mg Take 1 [facility] 2 mg 9-17 capsule by ity of capsule 00:00: mouth [place] 00 daily. Medical Branch methocarbam 2020-0 Yes [id number] 500mg Take 1 [facility] oL 500 mg 9-17 tablet by ity o f tablet 00:00: mouth (four) Medical times Branch daily. ibuprofen 2020-0 Yes [id number] 600mg Take 1 [facility] 600 mg 9-17 tablet by ity of tablet 00:00: mouth [place] 00 every 6 Medical (six) Branch hours. loperamide 2020-0 Yes [id number] 2mg Take 1 [facility] 2 mg 9-17 capsule by ity of capsule 00:00: mouth [place] 00 daily. Medical Branch methocarbam 2020-0 Yes [id number] 500mg Take 1 [facility] oL 500 mg 9-17 tablet by ity o f tablet 00:00: mouth (four) Medical times Branch daily. ibuprofen 2020-0 Yes [id number] 600mg Take 1 [facility] 600 mg 9-17 tablet by ity of tablet 00:00: mouth [place] 00 every 6 Medical (six) Branch hours. loperamide 2020-0 Yes [id number] 2mg Take 1 [facility] 2 mg 9-17 capsule by ity of capsule 00:00: mouth [place] 00 daily. Medical Branch methocarbam 2020-0 Yes [id number] 500mg Take 1 [facility] oL 500 mg 9-17 tablet by ity o f tablet 00:00: mouth 4 [place] 00 (four) Medical times Branch daily. ibuprofen 2020-0 Yes [id number] 600mg Take 1 [facility] 600 mg 9-17 tablet by ity of tablet 00:00: mouth [place] 00 every 6 Medical (six) Branch hours. loperamide 2020-0 Yes [id number] 2mg Take 1 [facility] 2 mg 9-17 capsule by ity of capsule 00:00: mouth 00 daily. Medical Branch methocarbam 2020-0 Yes [id number] 500mg Take 1 [facility] oL 500 mg 9-17 tablet by ity o f tablet 00:00: mouth (four) Medical times Branch daily. ibuprofen 2020-0 Yes [id number] 600mg Take 1 [facility] 600 mg 9-17 tablet by ity of tablet 00:00: mouth 00 every 6 Medical (six) Branch hours. loperamide 2020-0 Yes [id number] 2mg Take 1 [facility] 2 mg 9-17 capsule by ity of capsule 00:00: mouth 00 daily. Medical Branch methocarbam 2020-0 Yes [id number] 500mg Take 1 [facility] oL 500 mg 9-17 tablet by ity o f tablet 00:00: mouth (four) Medical times Branch daily. ibuprofen 2020-0 Yes [id number] 600mg Take 1 [facility] 600 mg 9-17 tablet by ity of tablet 00:00: mouth 00 every 6 Medical (six) Branch hours. loperamide 2020-0 Yes [id number] 2mg Take 1 [facility] 2 mg 9-17 capsule by ity of capsule 00:00: mouth 00 daily. Medical Branch methocarbam 2020-0 Yes [id number] 500mg Take 1 [facility] oL 500 mg 9-17 tablet by ity o f tablet 00:00: mouth (four) Medical times Branch daily. ibuprofen 2020-0 Yes [id number] 600mg Take 1 [facility] 600 mg 9-17 tablet by ity of tablet 00:00: mouth 00 every 6 Medical (six) Branch hours. loperamide 2020-0 Yes [id number] 2mg Take 1 [facility] 2 mg 9-17 capsule by ity of capsule 00:00: mouth 00 daily. Medical Branch methocarbam 2020-0 Yes [id number] 500mg Take 1 [facility] oL 500 mg 9-17 tablet by ity o f tablet 00:00: mouth (four) Medical times Branch daily. ibuprofen 2020-0 Yes [id number] 600mg Take 1 [facility] 600 mg 9-17 tablet by ity of tablet 00:00: mouth [place] 00 every 6 Medical (six) Branch hours. loperamide 2020-0 Yes [id number] 2mg Take 1 [facility] 2 mg 9-17 capsule by ity of capsule 00:00: mouth [place] 00 daily. Medical Branch methocarbam 2020-0 Yes [id number] 500mg Take 1 [facility] oL 500 mg 9-17 tablet by ity o f tablet 00:00: mouth 4 (four) Medical times Branch daily. ibuprofen 2020-0 Yes [id number] 600mg Take 1 [facility] 600 mg 9-17 tablet by ity of tablet 00:00: mouth [place] 00 every 6 Medical (six) Branch hours. loperamide 2020-0 Yes [id number] 2mg Take 1 [facility] 2 mg 9-17 capsule by ity of capsule 00:00: mouth [place] 00 daily. Medical Branch methocarbam 2020-0 Yes [id number] 500mg Take 1 [facility] oL 500 mg 9-17 tablet by ity o f tablet 00:00: mouth (four) Medical times Branch daily. ibuprofen 2020-0 Yes [id number] 600mg Take 1 [facility] 600 mg 9-17 tablet by ity of tablet 00:00: mouth [place] 00 every 6 Medical (six) Branch hours. loperamide 2020-0 Yes [id number] 2mg Take 1 [facility] 2 mg 9-17 capsule by ity of capsule 00:00: mouth [place] 00 daily. Medical Branch methocarbam 2020-0 Yes [id number] 500mg Take 1 [facility] oL 500 mg 9-17 tablet by ity o f tablet 00:00: mouth (four) Medical times Branch daily. ibuprofen 2020-0 Yes [id number] 600mg Take 1 [facility] 600 mg 9-17 tablet by ity of tablet 00:00: mouth [place] 00 every 6 Medical (six) Branch hours. loperamide 2020-0 Yes [id number] 2mg Take 1 [facility] 2 mg 9-17 capsule by ity of capsule 00:00: mouth [place] 00 daily. Medical Branch methocarbam 2020-0 Yes [id number] 500mg Take 1 [facility] oL 500 mg 9-17 tablet by ity o f tablet 00:00: mouth (four) Medical times Branch daily. ibuprofen 2020-0 Yes [id number] 600mg Take 1 [facility] 600 mg 9-17 tablet by ity of tablet 00:00: mouth [place] 00 every 6 Medical (six) Branch hours. loperamide 2020-0 Yes [id number] 2mg Take 1 [facility] 2 mg 9-17 capsule by ity of capsule 00:00: mouth [place] 00 daily. Medical Branch methocarbam 2020-0 Yes [id number] 500mg Take 1 [facility] oL 500 mg 9-17 tablet by ity o f tablet 00:00: mouth 00 (four) Medical times Branch daily. ibuprofen 2020-0 Yes [id number] 600mg Take 1 [facility] 600 mg 9-17 tablet by ity of tablet 00:00: mouth [place] 00 every 6 Medical (six) Branch hours. loperamide 2020-0 Yes [id number] 2mg Take 1 [facility] 2 mg 9-17 capsule by ity of capsule 00:00: mouth [place] 00 daily. Medical Branch methocarbam 2020-0 Yes [id number] 500mg Take 1 [facility] oL 500 mg 9-17 tablet by ity o f tablet 00:00: mouth (four) Medical times Branch daily. ibuprofen 2020-0 Yes [id number] 600mg Take 1 [facility] 600 mg 9-17 tablet by ity of tablet 00:00: mouth [place] 00 every 6 Medical (six) Branch hours. loperamide 2020-0 Yes [id number] 2mg Take 1 [facility] 2 mg 9-17 capsule by ity of capsule 00:00: mouth [place] 00 daily. Medical Branch methocarbam 2020-0 Yes [id number] 500mg Take 1 [facility] oL 500 mg 9-17 tablet by ity o f tablet 00:00: mouth (four) Medical times Branch daily. ibuprofen 2020-0 Yes [id number] 600mg Take 1 [facility] 600 mg 9-17 tablet by ity of tablet 00:00: mouth [place] 00 every 6 Medical (six) Branch hours. loperamide 2020-0 Yes [id number] 2mg Take 1 [facility] 2 mg 9-17 capsule by ity of capsule 00:00: mouth [place] 00 daily. Medical Branch methocarbam 2020-0 Yes [id number] 500mg Take 1 [facility] oL 500 mg 9-17 tablet by ity o f tablet 00:00: mouth 00 (four) Medical times Branch daily. ibuprofen 2020-0 Yes [id number] 600mg Take 1 [facility] 600 mg 9-17 tablet by ity of tablet 00:00: mouth [place] 00 every 6 Medical (six) Branch hours. loperamide 2020-0 Yes [id number] 2mg Take 1 [facility] 2 mg 9-17 capsule by ity of capsule 00:00: mouth 00 daily. Medical Branch methocarbam 2020-0 Yes [id number] 500mg Take 1 [facility] oL 500 mg 9-17 tablet by ity o f tablet 00:00: mouth 4 (four) Medical times Branch daily. ibuprofen 2020-0 Yes [id number] 600mg Take 1 [facility] 600 mg 9-17 tablet by ity of tablet 00:00: mouth [place] 00 every 6 Medical (six) Branch hours. methocarbam 2020-0 Yes [id number] 500mg Take 1 [facility] oL 500 mg 9-17 tablet by ity o f tablet 00:00: mouth (four) Medical times Branch daily. ibuprofen 2020-0 Yes [id number] 600mg Take 1 [facility] 600 mg 9-17 tablet by ity of tablet 00:00: mouth 00 every 6 Medical (six) Branch hours. methocarbam 2020-0 Yes [id number] 500mg Take 1 [facility] oL 500 mg 9-17 tablet by ity o f tablet 00:00: mouth (four) Medical times Branch daily. ibuprofen 2020-0 Yes [id number] 600mg Take 1 [facility] 600 mg 9-17 tablet by ity of tablet 00:00: mouth [place] 00 every 6 Medical (six) Branch hours. methocarbam 2020-0 Yes [id number] 500mg Take 1 [facility] oL 500 mg 9-17 tablet by ity o f tablet 00:00: mouth (four) Medical times Branch daily. ibuprofen 2020-0 Yes [id number] 600mg Take 1 [facility] 600 mg 9-17 tablet by ity of tablet 00:00: mouth [place] 00 every 6 Medical (six) Branch hours. methocarbam 2020-0 Yes [id number] 500mg Take 1 [facility] oL 500 mg 9-17 tablet by ity o f tablet 00:00: mouth (four) Medical times Branch daily. acetaminoph 2020-0 2020- No [id number] 650mg Take 2 [facility] en 325 mg 9-17 -18 tablets by ity of tablet 00:00: 04:59 mouth [place] 00 :00 every 6 Medical (six) Branch hours. acetaminoph 2020-0 2020- No [id number] 650mg Take 2 [facility] en 325 mg 9-17 09-18 tablets by ity of tablet 00:00: 04:59 mouth [place] 00 :00 every 6 Medical (six) Branch hours. acetaminoph 2020- No [id number] 650mg Take 2 [facility] en 325 mg 9-17 09-18 tablets by ity of tablet 00:00: 04:59 mouth [place] 00 :00 every 6 Medical (six) Branch hours. acetaminoph 2020- No [id number] 650mg Take 2 [facility] en 325 mg 9-17 09-18 tablets by ity of tablet 00:00: 04:59 mouth [place] 00 :00 every 6 Medical (six) Branch hours. acetaminoph 2020- No [id number] 650mg Take 2 [facility] en 325 mg 9-17 09-18 tablets by ity of tablet 00:00: 04:59 mouth [place] 00 :00 every 6 Medical (six) Branch hours. acetaminoph 2020- No [id number] 650mg Take 2 [facility] en 325 mg 9-17 09-18 tablets by ity of tablet 00:00: 04:59 mouth [place] 00 :00 every 6 Medical (six) Branch hours. acetaminoph 2020- No [id number] 650mg Take 2 [facility] en 325 mg 9-17 09-18 tablets by ity of tablet 00:00: 04:59 mouth [place] 00 :00 every 6 Medical (six) Branch hours. acetaminoph 2020- No [id number] 650mg Take 2 [facility] en 325 mg 9-17 09-18 tablets by ity of tablet 00:00: 04:59 mouth [place] 00 :00 every 6 Medical (six) Branch hours. acetaminoph 2020- No [id number] 650mg Take 2 [facility] en 325 mg 9-17 09-18 tablets by ity of tablet 00:00: 04:59 mouth [place] 00 :00 every 6 Medical (six) Branch hours. acetaminoph 2020- No [id number] 650mg Take 2 [facility] en 325 mg 9-17 09-18 tablets by ity of tablet 00:00: 04:59 mouth [place] 00 :00 every 6 Medical (six) Branch hours. acetaminoph 2020- No [id number] 650mg Take 2 [facility] en 325 mg 9-17 09-18 tablets by ity of tablet 00:00: 04:59 mouth [place] 00 :00 every 6 Medical (six) Branch hours. acetaminoph 2020- No [id number] 650mg Take 2 [facility] en 325 mg 9-17 09-18 tablets by ity of tablet 00:00: 04:59 mouth [place] 00 :00 every 6 Medical (six) Branch hours. acetaminoph 2020- No [id number] 650mg Take 2 [facility] en 325 mg 9-17 09-18 tablets by ity of tablet 00:00: 04:59 mouth [place] 00 :00 every 6 Medical (six) Branch hours. acetaminoph 2020- No [id number] 650mg Take 2 [facility] en 325 mg 9-17 09-18 tablets by ity of tablet 00:00: 04:59 mouth [place] 00 :00 every 6 Medical (six) Branch hours. acetaminoph 2020- No [id number] 650mg Take 2 [facility] en 325 mg 9-17 09-18 tablets by ity of tablet 00:00: 04:59 mouth [place] 00 :00 every 6 Medical (six) Branch hours. acetaminoph 2020- No [id number] 650mg Take 2 [facility] en 325 mg 9-17 09-18 tablets by ity of tablet 00:00: 04:59 mouth [place] 00 :00 every 6 Medical (six) Branch hours. acetaminoph 2020- No [id number] 650mg Take 2 [facility] en 325 mg 9-17 09-18 tablets by ity of tablet 00:00: 04:59 mouth [place] 00 :00 every 6 Medical (six) Branch hours. acetaminoph 2020- No [id number] 650mg Take 2 [facility] en 325 mg 9-17 09-18 tablets by ity of tablet 00:00: 04:59 mouth [place] 00 :00 every 6 Medical (six) Branch hours. acetaminoph 2020-0 2020- No [id number] 650mg Take 2 [facility] en 325 mg 9-17 09-18 tablets by ity of tablet 00:00: 04:59 mouth [place] 00 :00 every 6 Medical (six) Branch hours. acetaminoph 2020-2020- No [id number] 650mg Take 2 [facility] en 325 mg 9-17 09-18 tablets by ity of tablet 00:00: 04:59 mouth [place] 00 :00 every 6 Medical (six) Branch hours. acetaminoph 2020- No [id number] 650mg Take 2 [facility] en 325 mg 9-17 09-18 tablets by ity of tablet 00:00: 04:59 mouth [place] 00 :00 every 6 Medical (six) Branch hours. acetaminoph 2020- No [id number] 650mg Take 2 [facility] en 325 mg 9-17 09-18 tablets by ity of tablet 00:00: 04:59 mouth [place] 00 :00 every 6 Medical (six) Branch hours. acetaminoph 2020- No [id number] 650mg Take 2 [facility] en 325 mg 9-17 09-18 tablets by ity of tablet 00:00: 04:59 mouth [place] 00 :00 every 6 Medical (six) Branch hours. acetaminoph 2020- No [id number] 650mg Take 2 [facility] en 325 mg 9-17 09-18 tablets by ity of tablet 00:00: 04:59 mouth [place] 00 :00 every 6 Medical (six) Branch hours. acetaminoph 2020- No [id number] 650mg Take 2 Univers en 325 mg 9-17 09-18 tablets by ity of tablet 00:00: 04:59 mouth [place] 00 :00 every 6 Medical (six) Branch hours. acetaminoph 2020- No [id number] 650mg Take 2 Univers en 325 mg 9-17 09-18 tablets by ity of tablet 00:00: 04:59 mouth [place] 00 :00 every 6 Medical (six) Branch hours. acetaminoph 2020- No [id number] 650mg Take 2 Univers en 325 mg 9-17 09-18 tablets by ity of tablet 00:00: 04:59 mouth [place] 00 :00 every 6 Medical (six) Branch hours. acetaminoph 2020- No [id number] 650mg Take 2 [facility] en 325 mg 9-17 09-18 tablets by ity of tablet 00:00: 04:59 mouth [place] 00 :00 every 6 Medical (six) Branch hours. acetaminoph 2020- No [id number] 650mg Take 2 Univers en 325 mg 9-17 09-18 tablets by ity of tablet 00:00: 04:59 mouth [place] 00 :00 every 6 Medical (six) Branch hours. acetaminoph 2020- No [id number] 650mg Take 2 Univers en 325 mg 9-17 09-18 tablets by ity of tablet 00:00: 04:59 mouth [place] 00 :00 every 6 Medical (six) Branch hours. acetaminoph 2020- No [id number] 650mg Take 2 Univers en 325 mg 9-17 09-18 tablets by ity of tablet 00:00: 04:59 mouth [place] 00 :00 every 6 Medical (six) Branch hours. acetaminoph 2020- No [id number] 650mg Take 2 Univers en 325 mg 9-17 09-18 tablets by ity of tablet 00:00: 04:59 mouth [place] 00 :00 every 6 Medical (six) Branch hours. acetaminoph 2020- No [id number] 650mg Take 2 Univers en 325 mg 9-17 09-18 tablets by ity of tablet 00:00: 04:59 mouth [place] 00 :00 every 6 Medical (six) Branch hours. acetaminoph 2020- No [id number] 650mg Take 2 Univers en 325 mg 9-17 09-18 tablets by ity of tablet 00:00: 04:59 mouth [place] 00 :00 every 6 Medical (six) Branch hours. acetaminoph 2020- No [id number] 650mg Take 2 Univers en 325 mg 9-17 09-18 tablets by ity of tablet 00:00: 04:59 mouth [place] 00 :00 every 6 Medical (six) Branch hours. acetaminoph 2020- No [id number] 650mg Take 2 [facility] en 325 mg 9-17 09-18 tablets by ity of tablet 00:00: 04:59 mouth [place] 00 :00 every 6 Medical (six) Branch hours. acetaminoph 2020- No [id number] 650mg Take 2 [facility] en 325 mg 9-17 09-18 tablets by ity of tablet 00:00: 04:59 mouth [place] 00 :00 every 6 Medical (six) Branch hours. acetaminoph 2020- No [id number] 650mg Take 2 [facility] en 325 mg 9-17 09-18 tablets by ity of tablet 00:00: 04:59 mouth [place] 00 :00 every 6 Medical (six) Branch hours. acetaminoph 2020- No [id number] 650mg Take 2 [facility] en 325 mg 9-17 09-18 tablets by ity of tablet 00:00: 04:59 mouth [place] 00 :00 every 6 Medical (six) Branch hours. acetaminoph 2019-2020- No [id number] 650mg Take 2 [facility] en 325 mg 9-17 09-18 tablets by ity of tablet 00:00: 04:59 mouth [place] 00 :00 every 6 Medical (six) Branch hours. acetaminoph 2019-2020- No [id number] 650mg Take 2 [facility] en 325 mg 9-17 09-18 tablets by ity of tablet 00:00: 04:59 mouth [place] 00 :00 every 6 Medical (six) Branch hours. acetaminoph 2019-2020- No [id number] 650mg Take 2 Univers en 325 mg 9-17 09-18 tablets by ity of tablet 00:00: 04:59 mouth [place] 00 :00 every 6 Medical (six) Branch hours. acetaminoph 2019-2020- No [id number] 650mg Take 2 Univers en 325 mg 9-17 09-18 tablets by ity of tablet 00:00: 04:59 mouth [place] 00 :00 every 6 Medical (six) Branch hours. acetaminoph 2019- No [id number] 650mg Take 2 Univers en 325 mg 9-17 12-16 tablets by ity of tablet 00:00: 00:00 mouth [place] 00 :00 every 6 Medical (six) Branch hours. loperamide 2019-2019- No [id number] 2mg Take 1 Univers 2 mg 9-17 [...] Medi ryann (8 %) IV 07/31/20 at [facility] h Piggyback 4 0730, g Routine D5W [...] at 0900, Until Discontinu ed, Routine HYDROmorpho 2019-0 2020- No 2mg 2 mg, Univ ers [...] Medic al s, ONCE, 1 Branch dose, [facility] 07/29/20 at 1730, Routine ibuprofen 2020-0 Yes 600mg 600 mg, Univ ers (IBU) 07-29 Oral, Q6H ity of tablet 600 17:00: ABX, First [place] mg 00 dose on [facility] 07/29/20 at 1200, Until Discontinu ed, Routine NaCl 0.9% 2020-0 Yes 10mL 10 mL, Univer s (NS) 07-29 Slow IV ity of injection 15:59: Push, PRN, [place] 10 mL 00 Starting [facility] 07/29/20 at 1059, Until Discontinu ed, Routine, line maintenanc e lidocaine 2020-0 Yes 5mL 5 mL, Univers 1% (PF) 07-29 Subcutaneo ity of (XYLOCAINE) 15:59: us, PRN, [place] injection 5 00 Starting Medi ryann mL [facility] 07/29/20 at 1059, Until Discontinu ed, Routine, Local anesthesia pantoprazol 2020-0 Yes 40mg 40 mg, Univ ers e -14 Oral, ity of (PROTONIX) 14:00: DAILY, [place] EC tablet 00 First dose Medi ryann 40 mg on [facility] 07/29/20 at 0900, Until Discontinu ed, Routine acetaminoph 2020-0 Yes 650mg 650 mg, Un thor en 07-29 Oral, Q6H ity of (TYLENOL) 14:00: ABX, First [place] tablet 650 00 dose on Medica l mg [facility] 07/29/20 at 0900, Until Discontinu ed, [...] dose [place] tablet 500 00 on [facility] Medical mg 07/29/20 at Branch 0800, Until Discontinu ed, Routine oxyCODONE 2020-0 2020- No 5mg 5 mg, Univer s immediate 07-29 Oral, ity of release 12:37: 11:44 Q6HPRN, [place] tablet 5 mg 43 :47 Starting Medi ryann [facility] Branch 07/29/20 at 0737, Until e 07/30/20 at 0644, Routine, Pain (scale 7-10)
F aculty member approving Restricted medication : DARREN CHUN metoprolol 2020-0 2020- No 5mg 5 mg, IV Un thor (LOPRESSOR) 07-29 Push, Q8H, i ty of injection 5 01:00: 12:37 First dose [place] mg 00 :04 (after Medical last Branch modificati on) on [place] 07/28/20 at 2000, Until Discontinu ed, Routine methocarbam 2020-0 2020- No 1g 1,000 mg U nivers oL 07-28 (1 g), IV ity of (ROBAXIN) 22:00: 21:57 Piggyback, [place] 1,000 mg in 00 :00 ONCE, 1 Medic al NaCl 0.9% dose, [place] Bran h (NS) 07/28/20 at piggyback 1700, 100 mL acetaminoph 2020-0 2020- No 1000mg 1,000 mg, Univers en ADULT 07-28 IV ity of (OFIRMEV) 15:00: 08:16 Infusion, [place] injection 00 :00 Administer Medi ryann 1,000 mg over 15 Branch Minutes, Q8H ABX, 3 doses, First dose (after last reorder) on [place] 07/28/20 at 1000, Last dose on 07/29/20 at 0200, Routine
Indicatio n: Non-periop erative Patient
Approved by: Per Policy (NPO Status) ALPRAZolam 2019-0 2020- No .5mg 0.5 mg, Uni vers (XANAX) 07-28 Oral, PRN, ity o f tablet 0.5 13:53: 16:59 1 dose, [place] mg 25 :00 Starting [facility] Branch 07/28/20 at 0853, Until Discontinu ed, Routine, anxiety ALPRAZolam 2019-0 Yes 1mg 1 mg, Univer s (XANAX) 07-28 Oral, ity of tablet 1 mg 13:52: QHSPRN, [place] 54 Starting [facility] 07/28/20 at 0852, Until Discontinu ed, Routine, Insomnia, anxiety D5W 0.45% 2019- 2020- No IV Univers NaCl 07-28 Infusion, ity of (1/2NS) 1 L 12:45: 12:37 at 100 [place] + KCL 20 00 :04 mL/hr, Medical mEq CONTINUOUS Branch , Starting 07/28/20 at 0745, Until 07/29/20 at 0737, Routine acetaminoph 2019- 2020- No 1000mg 1,000 [...] ity of (fixed 00:45: 12:37 [place] dose) [employer] 00 :04 Medical injection Branch HYDROmorpho 2019-0 [...] Univers en ADULT 07-26 IV ity of ([facility]) 00:21: 00:44 Infusion, [place] injection 16 :00 Administer Medi ryann 1,000 mg over 15 Branch Minutes, PRN, 1 dose, Starting [facility] 07/25/20 at 1921, Until [place] 07/25/20 at 1944, Routine, Pain (scale 4-6)
In dication: Perioperat jane Patient naloxone Yes .1mg 0.1 mg, Univer s (NARCAN) 07-25 Slow IV ity of injection 23:36: Push, [place] 0.1 mg 05 SEE-INSTRU Medical CTIONS, Branch Starting [facility] 07/25/20 at 1836, Until Discontinu ed, Routine acetaminoph 2020- No 1000mg 1,000 mg, Univers en ADULT 07-25 IV ity of ([facility]) 12:45: 12:44 Infusion, [place] injection [...] Branch , Starting Wed07/24/20 at 0130, Until [place] 07/28/20 at 0739, Routine morpHINE 2019-0 2020- No 4mg 4 mg, Slow Un thor injection 4 07-24 IV Push, ity of mg 06:19: 14:48 Q3HPRN, [place] 51 :46 Starting Medical 07/24/20 Branch at 0119, Until [place] 07/28/20 at 0948, Routine, Pain (scale 7-10) morpHINE 2019-0 2020- No 4mg 4 mg, Slow Un thor injection 4 07-24 IV Push, ity of mg 03:45: 02:42 ONCE, 1 [place] 00 :00 dose, [facility] Medical 07/23/20 at Branch 2245, STAT NaCl 0.9% 2020-0 2020- No 500mL at 999 Univ ers (NS) bolus 07-24 mL/hr, 500 it y of infusion 03:45: 03:41 mL, IV [place] 500 mL 00 :00 Infusion, Medical ONCE, 1 [place] dose, 07/23/20 at 2245, STAT NaCl 0.9% 2020-0 2020- No 1000mL at 150 Uni vers (NS) IV 07-24 mL/hr, ity of infusion 03:45: 09:49 Intravenou [place] 1,000 mL 00 :01 s, Medical CONTINUOUS [place] , Starting Tu07/23/20 at 2245, Until 07/24/20 at 0449, Routine proMETHazin 2019-0 2020- No 12.5mg 12.5 mg, Univers e 07-24 IV ity of (PHENERGAN) 01:30: 01:30 Piggyback, [place] 12.5 mg in 00 :00 ONCE, 1 Medica l NaCl 0.9% dose, e Bran h (NS) 50 mL 07/23/20 at piggyback 2030, 50 mL morpHINE 2020-0 2020- No 4mg 4 mg, Slow Un thor injection 4 07-24 IV Push, ity of mg 01:15: 00:22 ONCE, 1 [place] 00 :00 dose, [facility] 07/23/20 at Branch 2015, STAT morpHINE 2020-0 2020- No 4mg 4 mg, Slow Un thor injection 4 07-23 IV Push, ity of mg 22:30: 21:20 ONCE, 1 [place] 00 :00 dose, [facility] 07/23/20 at Branch 1730, STAT piperacilli 2020-0 [...] of 350 20:46: 20:47 s, ONCE, 1 [place] BULK-150 00 :00 dose, Tue Medica l mL) 07/23/20 at Branch injection 1600, 114 mL Routine methylPREDN 2020- No 40mg 40 mg, IV Univers ISolone sod 07-23 Piggyback, i ty of succ 19:15: 19:10 ONCE, 1 [place] (SOLU-MEDRO 00 :00 dose, Tue Med ical L (PF)) 07/23/20 at Branch injection 1415, STAT 40 mg diphenhydrA 2019- No 25mg 25 mg, Uni vers MINE 07-23 Slow IV ity of (BENADRYL) 19:15: 19:18 Push, [place] injection 00 :00 ONCE, 1 Medical 25 mg dose, e Branch 07/23/20 at 1415, STAT morpHINE 2019- 2020- No 4mg 4 mg, Slow Un thor injection 4 07-23 IV Push, ity of mg 19:15: 18:59 ONCE, 1 [place] 00 :00 dose, Tue Medical 07/23/20 at Branch 1415, STAT famotidine 2020- No 20mg 20 mg, [facility] ers (PEPCID 07-23 Intravenou ity o f (PF)) 18:45: 19:02 s, ONCE, 1 [place] injection 00 :00 dose, Tue Medic al [...] 1000mL at 999 Uni vers (NS) bolus 08 09-08 mL/hr, ity of infusion 17:45: 22:20 [...] daily. Branch ease suspension metoprolol 2018-11 Yes [id number] 25mg Take 1 Un thor tartrate 25 0-10 tablet by ity of mg tablet 00:00: mouth 2 00 (two) Medical times Branch daily. metoprolol 2018-11 Yes [id number] 25mg Take 1 Un thor tartrate 25 0-10 tablet by ity of mg tablet 00:00: mouth 2 00 (two) Medical times Branch daily. metoprolol 2018-11 Yes [id number] 25mg Take 1 Un thor tartrate 25 0-10 tablet by ity of mg tablet 00:00: mouth 2 00 (two) Medical times Branch daily. acetaminoph 2018-11 Yes [id number] 1{tbl} Take 1 Univers en-codeine 0-10 tablet by ity of (TYLENOL-CO 00:00: mouth [place] DEINE #4) 00 every 4 Medical 300-60 mg (four) Branch tablet hours as needed for Pain. levoFLOXaci 2018-11 Yes [id number] 750mg Take 1 Univers n 750 mg 0-10 tablet by ity of tablet 00:00: mouth [place] 00 every 24 Medical (twenty-fo Branch ur) hours. metoprolol 2018-11 Yes [id number] 25mg Take 1 Un thor tartrate 25 0-10 tablet by ity of mg tablet 00:00: mouth 2 [place] 00 (two) Medical times Branch daily. metoprolol 2018-11 Yes [id number] 25mg Take 1 Un thor tartrate 25 0-10 tablet by ity of mg tablet 00:00: mouth (two) Medical times Branch daily. metoprolol 2018-11 Yes [id number] 25mg Take 1 Un thor tartrate 25 0-10 tablet by ity of mg tablet 00:00: mouth (two) Medical times Branch daily. metoprolol 2018-11 Yes [id number] 25mg Take 1 Un thor tartrate 25 0-10 tablet by ity of mg tablet 00:00: mouth (two) Medical times Branch daily. metoprolol 2018-11 Yes [id number] 25mg Take 1 Un thor tartrate 25 0-10 tablet by ity of mg tablet 00:00: mouth (two) Medical times Branch daily. metoprolol 2018-11 Yes [id number] 25mg Take 1 Un thor tartrate 25 0-10 tablet by ity of mg tablet 00:00: mouth (two) Medical times Branch daily. metoprolol 2018-11 Yes [id number] 25mg Take 1 Un thor tartrate 25 0-10 tablet by ity of mg tablet 00:00: mouth (two) Medical times Branch daily. metoprolol 2018-11 Yes [id number] 25mg Take 1 Un thor tartrate 25 0-10 tablet by ity of mg tablet 00:00: mouth (two) Medical times Branch daily. metoprolol 2018-11 Yes [id number] 25mg Take 1 Un thor tartrate 25 0-10 tablet by ity of mg tablet 00:00: mouth (two) Medical times Branch daily. metoprolol 2018-11 Yes [id number] 25mg Take 1 Un thor tartrate 25 0-10 tablet by ity of mg tablet 00:00: mouth (two) Medical times Branch daily. metoprolol 2018-11 Yes [id number] 25mg Take 1 Un thor tartrate 25 0-10 tablet by ity of mg tablet 00:00: mouth (two) Medical times Branch daily. metoprolol 2018-11 Yes [id number] 25mg Take 1 Un thor tartrate 25 0-10 tablet by ity of mg tablet 00:00: mouth (two) Medical times Branch daily. metoprolol 2018-11 Yes [id number] 25mg Take 1 Un thor tartrate 25 0-10 tablet by ity of mg tablet 00:00: mouth (two) Medical times Branch daily. metoprolol 2018-11 Yes [id number] 25mg Take 1 Un thor tartrate 25 0-10 tablet by ity of mg tablet 00:00: mouth (two) Medical times Branch daily. metoprolol 2018-11 Yes [id number] 25mg Take 1 Un thor tartrate 25 0-10 tablet by ity of mg tablet 00:00: mouth (two) Medical times Branch daily. metoprolol 2018-11 Yes [id number] 25mg Take 1 Un thor tartrate 25 0-10 tablet by ity of mg tablet 00:00: mouth (two) Medical times Branch daily. metoprolol 2018-11 Yes [id number] 25mg Take 1 Un thor tartrate 25 0-10 tablet by ity of mg tablet 00:00: mouth () Medical times Branch daily. metoprolol 2018-11 Yes [id number] 25mg Take 1 Un thor tartrate 25 0-10 tablet by ity of mg tablet 00:00: mouth () Medical times Branch daily. metoprolol 2018-11 Yes [id number] 25mg Take 1 Un thor tartrate 25 0-10 tablet by ity of mg tablet 00:00: mouth (two) Medical times Branch daily. metoprolol 2018-11 Yes [id number] 25mg Take 1 Un thor tartrate 25 0-10 tablet by ity of mg tablet 00:00: mouth (two) Medical times Branch daily. metoprolol 2018-11 Yes [id number] 25mg Take 1 Un thor tartrate 25 0-10 tablet by ity of mg tablet 00:00: mouth (two) Medical times Branch daily. metoprolol 2018-11 Yes [id number] 25mg Take 1 Un thor tartrate 25 0-10 tablet by ity of mg tablet 00:00: mouth (two) Medical times Branch daily. metoprolol 2018-11 Yes [id number] 25mg Take 1 Un thor tartrate 25 0-10 tablet by ity of mg tablet 00:00: mouth (two) Medical times Branch daily. metoprolol 2018-11 Yes [id number] 25mg Take 1 Un thor tartrate 25 0-10 tablet by ity of mg tablet 00:00: mouth (two) Medical times Branch daily. metoprolol 2018-11 Yes [id number] 25mg Take 1 Un thor tartrate 25 0-10 tablet by ity of mg tablet 00:00: mouth (two) Medical times Branch daily. metoprolol 2018-11 Yes [id number] 25mg Take 1 Un thor tartrate 25 0-10 tablet by ity of mg tablet 00:00: mouth (two) Medical times Branch daily. metoprolol 2018-11 Yes [id number] 25mg Take 1 Un thor tartrate 25 0-10 tablet by ity of mg tablet 00:00: mouth (two) Medical times Branch daily. metoprolol 2018-11 Yes [id number] 25mg Take 1 Un thor tartrate 25 0-10 tablet by ity of mg tablet 00:00: mouth (two) Medical times Branch daily. metoprolol 2018-11 Yes [id number] 25mg Take 1 Un thor tartrate 25 0-10 tablet by ity of mg tablet 00:00: mouth (two) Medical times Branch daily. metoprolol 2018-11 Yes [id number] 25mg Take 1 Un thor tartrate 25 0-10 tablet by ity of mg tablet 00:00: mouth (two) Medical times Branch daily. metoprolol 2018-11 Yes [id number] 25mg Take 1 Un thor tartrate 25 0-10 tablet by ity of mg tablet 00:00: mouth (two) Medical times Branch daily. metoprolol 2018-11 Yes [id number] 25mg Take 1 Un thor tartrate 25 0-10 tablet by ity of mg tablet 00:00: mouth (two) Medical times Branch daily. metoprolol 2018-11 Yes [id number] 25mg Take 1 Un thor tartrate 25 0-10 tablet by ity of mg tablet 00:00: mouth (two) Medical times Branch daily. metoprolol 2018-11 Yes [id number] 25mg Take 1 Un thor tartrate 25 0-10 tablet by ity of mg tablet 00:00: mouth (two) Medical times Branch daily. metoprolol 2018-11 Yes [id number] 25mg Take 1 Un thor tartrate 25 0-10 tablet by ity of mg tablet 00:00: mouth 2 (two) Medical times Branch daily. metoprolol 2018-11 Yes [id number] 25mg Take 1 Un thor tartrate 25 0-10 tablet by ity of mg tablet 00:00: mouth (two) Medical times Branch daily. metoprolol 2018-11 Yes [id number] 25mg Take 1 Un thor tartrate 25 0-10 tablet by ity of mg tablet 00:00: mouth (two) Medical times Branch daily. metoprolol 2018-11 Yes [id number] 25mg Take 1 Un thor tartrate 25 0-10 tablet by ity of mg tablet 00:00: mouth (two) Medical times Branch daily. metoprolol 2018-11 Yes [id number] 25mg Take 1 Un thor tartrate 25 0-10 tablet by ity of mg tablet 00:00: mouth (two) Medical times Branch daily. metoprolol 2018-11 Yes [id number] 25mg Take 1 Un thor tartrate 25 0-10 tablet by ity of mg tablet 00:00: mouth (two) Medical times Branch daily. metoprolol 2018-11 Yes [id number] 25mg Take 1 Un thor tartrate 25 0-10 tablet by ity of mg tablet 00:00: mouth (two) Medical times Branch daily. metoprolol 2018-11 2020- No [id number] 25mg Take 1 U nivers tartrate 25 0-10 12-16 tablet by it y of mg tablet 00:00: 00:00 mouth 2 [place] 00 :00 (two) Medical times Branch daily. acetaminoph 2018-11 2020- No [id number] 1{tbl} Take 1 Univers en-codeine 0-10 09-17 tablet by ity of (TYLENOL-CO 00:00: 00:00 mouth [place] DEINE #4) 00 :00 every 4 Medical 300-60 mg (four) Branch tablet hours as needed for Pain. levoFLOXaci 2018-11 2020- No [id number] 750mg Take 1 Univers n 750 mg 0-10 09-17 tablet by ity o f tablet 00:00: 00:00 mouth [place] 00 :00 every 24 Medical (twenty-fo Branch ur) hours. proMETHazin 2018-11 Yes [id number] 25mg Take 1 Univers e 25 mg 0-04 tablet by ity of tablet 00:00: mouth [place] 00 every 6 Medical (six) Branch hours as needed for Nausea and Vomiting (N/V). proMETHazin 2018-11 Yes [id number] 25mg Take 1 Univers e 25 mg 0-04 tablet by ity of tablet 00:00: mouth [place] 00 every 6 Medical (six) Branch hours as needed for Nausea and Vomiting (N/V). proMETHazin 2018-11 Yes [id number] 25mg Take 1 Univers e 25 mg 0-04 tablet by ity of tablet 00:00: mouth [place] 00 every 6 Medical (six) Branch hours as needed for Nausea and Vomiting (N/V). proMETHazin 2018-11 Yes [id number] 25mg Take 1 Univers e 25 mg 0-04 tablet by ity of tablet 00:00: mouth [place] 00 every 6 Medical (six) Branch hours as needed for Nausea and Vomiting (N/V). proMETHazin 2018-11 Yes [id number] 25mg Take 1 Univers e 25 mg 0-04 tablet by ity of tablet 00:00: mouth [place] 00 every 6 Medical (six) Branch hours as needed for Nausea and Vomiting (N/V). proMETHazin 2018-11 Yes [id number] 25mg Take 1 Univers e 25 mg 0-04 tablet by ity of tablet 00:00: mouth [place] 00 every 6 Medical (six) Branch hours as needed for Nausea and Vomiting (N/V). proMETHazin 2018-11 Yes [id number] 25mg Take 1 Univers e 25 mg 0-04 tablet by ity of tablet 00:00: mouth [place] 00 every 6 Medical (six) Branch hours as needed for Nausea and Vomiting (N/V). proMETHazin 2018-11 Yes [id number] 25mg Take 1 Univers e 25 mg 0-04 tablet by ity of tablet 00:00: mouth [place] 00 every 6 Medical (six) Branch hours as needed for Nausea and Vomiting (N/V). proMETHazin 2018-11 Yes [id number] 25mg Take 1 Univers e 25 mg 0-04 tablet by ity of tablet 00:00: mouth [place] 00 every 6 Medical (six) Branch hours as needed for Nausea and Vomiting (N/V). proMETHazin 2018-11 Yes [id number] 25mg Take 1 Univers e 25 mg 0-04 tablet by ity of tablet 00:00: mouth [place] 00 every 6 Medical (six) Branch hours as needed for Nausea and Vomiting (N/V). proMETHazin 2018-11 Yes [id number] 25mg Take 1 Univers e 25 mg 0-04 tablet by ity of tablet 00:00: mouth [place] 00 every 6 Medical (six) Branch hours as needed for Nausea and Vomiting (N/V). proMETHazin 2018-11 Yes [id number] 25mg Take 1 Univers e 25 mg 0-04 tablet by ity of tablet 00:00: mouth [place] 00 every 6 Medical (six) Branch hours as needed for Nausea and Vomiting (N/V). proMETHazin 2018-11 Yes [id number] 25mg Take 1 Univers e 25 mg 0-04 tablet by ity of tablet 00:00: mouth [place] 00 every 6 Medical (six) Branch hours as needed for Nausea and Vomiting (N/V). proMETHazin 2018-11 Yes [id number] 25mg Take 1 Univers e 25 mg 0-04 tablet by ity of tablet 00:00: mouth [place] 00 every 6 Medical (six) Branch hours as needed for Nausea and Vomiting (N/V). proMETHazin 2018-11 Yes [id number] 25mg Take 1 Univers e 25 mg 0-04 tablet by ity of tablet 00:00: mouth [place] 00 every 6 Medical (six) Branch hours as needed for Nausea and Vomiting (N/V). proMETHazin 2018-11 Yes [id number] 25mg Take 1 Univers e 25 mg 0-04 tablet by ity of tablet 00:00: mouth [place] 00 every 6 Medical (six) Branch hours as needed for Nausea and Vomiting (N/V). proMETHazin 2018-11 Yes [id number] 25mg Take 1 Univers e 25 mg 0-04 tablet by ity of tablet 00:00: mouth [place] 00 every 6 Medical (six) Branch hours as needed for Nausea and Vomiting (N/V). proMETHazin 2018-11 Yes [id number] 25mg Take 1 Univers e 25 mg 0-04 tablet by ity of tablet 00:00: mouth [place] 00 every 6 Medical (six) Branch hours as needed for Nausea and Vomiting (N/V). proMETHazin 2018-11 Yes [id number] 25mg Take 1 Univers e 25 mg 0-04 tablet by ity of tablet 00:00: mouth [place] 00 every 6 Medical (six) Branch hours as needed for Nausea and Vomiting (N/V). proMETHazin 2018-11 Yes [id number] 25mg Take 1 Univers e 25 mg 0-04 tablet by ity of tablet 00:00: mouth [place] 00 every 6 Medical (six) Branch hours as needed for Nausea and Vomiting (N/V). proMETHazin 2018-11 Yes [id number] 25mg Take 1 Univers e 25 mg 0-04 tablet by ity of tablet 00:00: mouth [place] 00 every 6 Medical (six) Branch hours as needed for Nausea and Vomiting (N/V). proMETHazin 2018-11 Yes [id number] 25mg Take 1 Univers e 25 mg 0-04 tablet by ity of tablet 00:00: mouth [place] 00 every 6 Medical (six) Branch hours as needed for Nausea and Vomiting (N/V). proMETHazin 2018-11 Yes [id number] 25mg Take 1 Univers e 25 mg 0-04 tablet by ity of tablet 00:00: mouth [place] 00 every 6 Medical (six) Branch hours as needed for Nausea and Vomiting (N/V). proMETHazin 2018-11 Yes [id number] 25mg Take 1 Univers e 25 mg 0-04 tablet by ity of tablet 00:00: mouth [place] 00 every 6 Medical (six) Branch hours as needed for Nausea and Vomiting (N/V). proMETHazin 2018-11 Yes [id number] 25mg Take 1 Univers e 25 mg 0-04 tablet by ity of tablet 00:00: mouth [place] 00 every 6 Medical (six) Branch hours as needed for Nausea and Vomiting (N/V). proMETHazin 2018-11 Yes [id number] 25mg Take 1 Univers e 25 mg 0-04 tablet by ity of tablet 00:00: mouth [place] 00 every 6 Medical (six) Branch hours as needed for Nausea and Vomiting (N/V). proMETHazin 2018-11 2020- No [id number] 25mg Take 1 Univers e 25 mg [...] [facility] Medica l NaCl 0.9% 06/15/19 at [facility] h (NS) 50 mL 1515, 50 piggyback mL morpHINE 2018- No 4mg 4 mg, Slow Un thor injection 4 06-15 IV Push, ity of mg 20:15: 19:30 ONCE, 1 [place] 00 :00 dose, [facility] Medical 06/15/19 at Branch 1515, STAT iohexol 2018- No 120mL 120 mL, Unive rs (OMNIPAQUE 06-15 Intravenou it y of 350 19:00: 18:36 s, ONCE, 1 [place] BULK-150 00 :00 dose, Beth Medica l [...] :00 ONCE, 1 Medical 25 mg dose, [facility] Branch 06/15/19 at 1345, STAT famotidine 2018- [...] [place] 06/15/19 at 1200, LUISA proMETHazin Yes [id number] 25mg Take 1 U nivers e 25 mg 06-15 tablet by ity of tablet 00:00: mouth [place] 00 every 6 Medical (six) Branch hours as needed for Nausea and Vomiting (N/V). famotidine 2019- No [id number] 40mg Take 1 U nivers 40 mg 06-15 tablet by ity of tablet 00:00: 04:59 mouth [place] 00 :00 daily for Medical 14 days. Branch predniSONE Yes [id number] Take 1 U nivers 10 mg 4-26 tablet ity of tablet 00:00: daily. [place] 00 Medical Branch proMETHazin Yes [id number] 25mg Insert 1 Univers e 25 mg [...] as needed for Pain (scale 4-6). pantoprazol 2015-0 Yes 20mg QD Take 20 [...] (N/V) for up to 5 doses. PHENERGAN 2015-0 Yes 25mg Insert 1 Univ ers 25 mg 3-12 Suppositor ity of suppository 00:00: y [place] 00 rectum Medical every 4 Branch (four) hours as needed for Nausea and Vomiting (N/V). HYDROcodone 2012-11 Yes Periapical 1{tbl} Take 1 [place] -acetaminop 0-22 abscess tablet by [facility] (ECRU) 00:00: mouth 10-325 mg 00 every 6 tablet hours as needed for Pain. HYDROcodone 2012-11 Yes Periapical 1{tbl} Take 1 [place] -acetaminop 0-22 abscess tablet by Health [facility] (ECRU) 00:00: mouth 10-325 mg 00 every 6 tablet hours as needed for Pain. HYDROcodone 2012-11 Yes Periapical 1{tbl} Take 1 [place] -acetaminop 0-22 abscess tablet by [facility] ([place]) 00:00: mouth 10-325 mg 00 every 6 tablet hours as needed for Pain. HYDROcodone 2012-11 Yes Periapical 1{tbl} Take 1 [place] -acetaminop 0-22 abscess tablet by [facility] hen (ECRU) 00:00: mouth 10-325 mg 00 every 6 tablet hours as needed for Pain. HYDROcodone 2012-11 Yes Periapical 1{tbl} Take 1 [place] -acetaminop 0-22 abscess tablet by Health [facility] ([place]) 00:00: mouth 10-325 mg 00 every 6 tablet hours as needed for Pain. HYDROcodone 2012-11 Yes Periapical 1{tbl} Take 1 [place] -acetaminop 0-22 abscess tablet by [facility] hen ([place]) 00:00: mouth 10-325 mg 00 every 6 tablet hours as needed for Pain. HYDROcodone 2012-11 Yes Caries 1{tbl} Take 1 [place] -acetaminop 0-21 tablet by [facility] hen ([place]) 00:00: mouth 5-325 mg 00 every 6 tablet hours as needed for Pain. HYDROcodone 2012-11 Yes Caries 1{tbl} Take 1 [place] -acetaminop 0-21 tablet by [facility] hen (alike) 00:00: mouth 5-325 mg 00 every 6 tablet hours as needed for Pain. HYDROcodone 2012-11 Yes Caries 1{tbl} Take 1 [place] -acetaminop 0-21 tablet by [facility] hen (alike) 00:00: mouth 5-325 mg 00 every 6 [...] as needed for Pain. proMETHazin 2010-11 Yes [id number] 12.5mg Take 1 Tab Univers e 2-23 by mouth ity of (PHENERGAN) 00:00: every 6 Juan as 12.5 mg 00 (six) Medical tablet hours as Branch needed for Nausea and Vomiting. Vital Signs Vital Name Observation Time Observation Value Comments Source Systolic blood 2023-03-25 136 mm[Hg] [facility] pressure 18:45:00 [facility] Diastolic blood 2023-03-25 72 mm[Hg] University o f pressure 18:45:00 [facility] Heart rate 2023-03-25 100 /min [facility] 18:45:00 [facility] Respiratory rate 2023-03-25 15 /min [facility] 18:45:00 [facility] Oxygen saturation 2023-03-25 100 /min [facility] Arterial blood 18:45:00 [facility] by Pulse oximetry [place] Body temperature 2023-03-25 37.44 Tayla [facility] 12:39:00 [facility] Body height 2023-03-25 170.2 cm University 12:39:00 [facility] Body weight 2023-03-25 61.825 kg [facility] 12:39:00 [facility] BMI 2023-03-25 21.35 kg/m2 University 12:39:00 [facility] Systolic blood 2020-10-30 92 mm[Hg] University of pressure 22:01:00 [facility] Diastolic blood 2020-10-30 65 mm[Hg] University o f pressure 22:01:00 [facility] Heart rate 2020-10-30 104 /min University 22:01:00 [facility] Body temperature 2020-10-30 36.83 Tayla University of 22:01:00 [facility] Respiratory rate 2020-10-30 18 /min University of 22:01:00 [facility] Branch Oxygen saturation 2020-10-30 96 /min University of in Arterial blood 22:01:00 [facility] ryann by Pulse oximetry Branch Body weight 2020-10-24 61.2 kg University of 19:35:00 [facility] BMI 2020-10-24 21.13 kg/m2 University of 19:35:00 [facility] Systolic blood 2020-10-30 92 mm[Hg] University of pressure 22:01:00 [facility] Diastolic blood 2020-10-30 65 mm[Hg] University o f pressure 22:01:00 [facility] Heart rate 2020-10-30 104 /min University of :01:00 [facility] Body temperature 2020-10-30 36.83 Tayla University of 22:01:00 [facility] Respiratory rate 2020-10-30 18 /min University of 22:01:00 [facility] Oxygen saturation 2020-10-30 96 /min University of in Arterial blood 22:01:00 [facility] ryann by Pulse oximetry Branch Body weight 2020-10-24 61.2 kg University of 19:35:00 [facility] BMI 2020-10-24 21.13 kg/m2 University of 19:35:00 [facility] Systolic blood 2020-10-19 92 mm[Hg] University of pressure 19:08:00 [facility] Diastolic blood 2020-10-19 63 mm[Hg] University o f pressure 19:08:00 [facility] Heart rate 2020-10-19 98 /min University of 19:08:00 [facility] Body temperature 2020-10-19 36.17 Tayla University of 19:08:00 [facility] Respiratory rate 2020-10-19 18 /min University of 19:08:00 [facility] Oxygen saturation 2020-10-19 100 /min University of in Arterial blood 19:08:00 [facility] ryann by Pulse oximetry Branch Body height 2020-10-14 170.2 cm University of 12:21:00 [facility] Body weight 2020-10-14 55.1 kg University of 12:21:00 [facility] BMI 2020-10-14 19.03 kg/m2 University of 12:21:00 [facility] Systolic blood 2020-10-19 92 mm[Hg] University of pressure 19:08:00 [facility] Diastolic blood 2020-10-19 63 mm[Hg] University o f pressure 19:08:00 [facility] Heart rate 2020-10-19 98 /min University of 19:08:00 [facility] Body temperature 2020-10-19 36.17 Tayla University of 19:08:00 [facility] Respiratory rate 2020-10-19 18 /min University of 19:08:00 [facility] Oxygen saturation 2020-10-19 100 /min University of in Arterial blood 19:08:00 [facility] ryann by Pulse oximetry Branch Body height 2020-10-14 170.2 cm University of 12:21:00 [facility] Body weight 2020-10-14 55.1 kg University of 12:21:00 [facility] BMI 2020-10-14 19.03 kg/m2 University of 12:21:00 [facility] Respiratory rate 2020-10-02 20 /min University of 06:35:00 [facility] Oxygen saturation 2020-10-02 97 /min [facility] in Arterial blood 06:35:00 [facility] ryann by Pulse oximetry Branch Systolic blood 2020-10-02 122 mm[Hg] University of pressure 04:53:00 [facility] Diastolic blood 2020-10-02 88 mm[Hg] University o f pressure 04:53:00 [facility] Heart rate 2020-10-02 133 /min University of 04:53:00 [facility] Body temperature 2020-10-02 37.28 Tayla University of 04:53:00 [facility] Body height 2020-10-02 170 cm University of 04:53:00 [facility] Body weight 2020-10-02 58.968 kg University of 04:53:00 [facility] BMI 2020-10-02 20.40 kg/m2 University of 04:53:00 [facility] Systolic blood 2020-09-27 98 mm[Hg] University of pressure 15:38:00 [facility] Diastolic blood 2020-09-27 64 mm[Hg] University o f pressure 15:38:00 [facility] Heart rate 2020-09-27 86 /min University of 15:38:00 [facility] Body temperature 2020-09-27 37.06 Tayla University of 15:38:00 [facility] Body height 2020-09-27 170.2 cm University of 15:38:00 [facility] Body weight 2020-09-27 59.104 kg University of 15:38:00 [facility] BMI 2020-09-27 20.41 kg/m2 University of 15:38:00 [facility] Oxygen saturation 2020-09-27 100 /min University of in Arterial blood 15:38:00 [facility] ryann by Pulse oximetry Branch Systolic blood 2020-09-18 106 mm[Hg] University of pressure 21:45:00 [facility] Diastolic blood 2020-09-18 68 mm[Hg] University o f pressure 21:45:00 [facility] Heart rate 2020-09-18 101 /min University of 21:45:00 [facility] Body temperature 2020-09-18 36.22 Tayla University of 21:45:00 [facility] Respiratory rate 2020-09-18 18 /min University of 21:45:00 [facility] Oxygen saturation 2020-09-18 98 /min University of in Arterial blood 21:45:00 [facility] by Pulse oximetry Branch Body weight 2020-09-18 61.236 kg With one University of 10:59:00 blanket and [facility] sheet. Branch BMI 2020-09-18 21.14 kg/m2 University of 10:59:00 [facility] Body height 2020-09-13 170.2 cm University of 20:47:00 [facility] Systolic blood 2020-09-01 129 mm[Hg] University of pressure 11:00:00 [facility] Diastolic blood 2020-09-01 86 mm[Hg] University o f pressure 11:00:00 [facility] Heart rate 2020-09-01 102 /min University of 11:00:00 [facility] Body temperature 2020-09-01 37.67 Tayla University of 10:00:00 [facility] Respiratory rate 2020-09-01 18 /min University of 10:00:00 [facility] Oxygen saturation 2020-09-01 100 /min University of in Arterial blood 10:00:00 [facility] by Pulse oximetry Branch Body weight 2020-09-01 58.968 kg University of 06:45:00 [facility] BMI 2020-09-01 20.36 kg/m2 University of 06:45:00 [facility] Systolic blood 2020-08-24 124 mm[Hg] University of pressure 00:00:00 [facility] Diastolic blood 2020-08-24 90 mm[Hg] University o f pressure 00:00:00 [facility] Heart rate 2020-08-24 89 /min University of 00:00:00 [facility] Respiratory rate 2020-08-24 20 /min University of 00:00:00 [facility] Oxygen saturation 2020-08-24 100 /min University of in Arterial blood 00:00:00 [place] [facility] by Pulse oximetry [facility] Body temperature 2020-08-23 36.61 Tayla University of 22:27:00 [facility] Body weight 2020-08-23 58.968 kg University of 22:: [facility] BMI 2020-08-23 20.36 kg/m2 University of 22:27:00 [facility] Systolic blood 2020-08-20 117 mm[Hg] University of pressure 16:22:00 [facility] Diastolic blood 2020-08-20 86 mm[Hg] University o f pressure 16:22: [facility] Heart rate 2020-08-20 129 /min University of 16:22: [facility] Body temperature 2020-08-20 36.89 Tayla University of 16:21:00 [facility] Respiratory rate 2020-08-20 16 /min University of 16:21: [facility] Body height 2020-08-20 170.2 cm University of 16:21: [facility] Body weight 2020-08-20 57.607 kg University of 16:: [facility] BMI 2020-08-20 19.89 kg/m2 University of 16:: [facility] Systolic blood 2020-08-18 115 mm[Hg] University of pressure 04:00:00 [facility] Diastolic blood 2020-08-18 79 mm[Hg] University o f pressure 04:00:00 [facility] Heart rate 2020-08-18 104 /min University of 04:00:00 [facility] Respiratory rate 2020-08-18 17 /min University of 04:00:00 [facility] Oxygen saturation 2020-08-18 100 /min University of in Arterial blood 04:00:00 [place] [facility] by Pulse oximetry Branch Body temperature 2020-08-18 37.06 Tayla University of 00:44:00 [facility] [place] Body weight 2020-08-18 56.7 kg University of 00:44:00 [facility] BMI 2020-08-18 19.58 kg/m2 University of 00:44:00 [facility] Systolic blood 2020-08-09 153 mm[Hg] University of pressure 15:40:00 [facility] Diastolic blood 2020-08-09 83 mm[Hg] University o f pressure 15:40:00 [facility] Heart rate 2020-08-09 143 /min University of 15:40:00 [facility] Body temperature 2020-08-09 36.83 Tayla University of 15:40:00 [facility] Body height 2020-08-09 170.2 cm University of 15:40:00 [facility] Body weight 2020-08-09 56.473 kg University of 15:40:00 [facility] BMI 2020-08-09 19.50 kg/m2 University of 15:40:00 [facility] Oxygen saturation 2020-08-09 100 /min University of in Arterial blood 15:40:00 [place] [facility] by Pulse oximetry Branch Systolic blood 2020-08-01 126 mm[Hg] University of pressure 13:03:00 [facility] Diastolic blood 2020-08-01 76 mm[Hg] University o f pressure 13:03:00 [facility] Heart rate 2020-08-01 119 /min University of 13:03:00 [facility] Body temperature 2020-08-01 36.67 Tayla University of 13:03:00 [facility] Respiratory rate 2020-08-01 16 /min University of 13:03:00 [facility] Oxygen saturation 2020-08-01 99 /min University of in Arterial blood 13:03:00 [facility] by Pulse oximetry Branch Body weight 2020-07-23 70.308 kg University of 16:57:00 [facility] BMI 2020-07-23 24.28 kg/m2 University of 16:57:00 [facility] Systolic blood 2019-06-15 110 mm[Hg] University of pressure 18:22:00 [facility] Diastolic blood 2019-06-15 57 mm[Hg] University o f pressure 18:22:00 [facility] Heart rate 2019-06-15 91 /min University of 18:22:00 [facility] Respiratory rate 2019-06-15 18 /min University of 18:22:00 [facility] Oxygen saturation 2019-06-15 98 /min University of in Arterial blood 18:22:00 [place] [facility] by Pulse oximetry Branch Body temperature 2019-06-15 38 Tayla University of 16:54:00 [facility] Body weight 2019-06-15 83.915 kg University of 16:54:00 [facility] BMI 2019-06-15 28.98 kg/m2 [facility] 16:54:00 [facility] Procedures Procedure Date / Time Performing Clinician Source Performed CT ABDOMEN PELVIS W 2023-03-25 15:40:45 Heladio Klein [facility] CONTRAST [facility] URINALYSIS 2023-03-25 14:59:00 Heladio Klien [facility] URINE DRUG (IMMUNOASSAY) 2023-03-25 14:59:00 Heladio Klein [facility] - COMPREHENSIVE DRUG Medical [facility] SCREEN W/O REFLEX LIPASE 2023-03-25 13:36:00 Heladio Klein [facility] TROPONIN I 2023-03-25 13:36:00 Heladio Klein [facility] COMP. METABOLIC PANEL 2023-03-25 13:36:00 Heladio Klein [facility] ([id number]) [facility] N-TERMINAL PRO-BNP 2023-03-25 13:36:00 Heladio Klein [facility] CBC WITH DIFF 2023-03-25 13:23:00 Heladio Klein [facility] RAPID STREP SCREEN FOR 2023-03-25 13:23:00 Heladio Klein [facility] GROUP A [facility] RAPID INFLUENZA A/B 2023-03-25 13:23:00 Heladio Klein [facility] LACTIC ACID WHOLE BLOOD 2023-03-25 13:23:00 Heladio Klein [facility] COVID-19 (ID NOW RAPID 2023-03-25 13:23:00 Heladio Klein [facility] TESTING) Medical [place] XR CHEST 1 VW 2023-03-25 13:08:12 Heladio Klein [facility] HB ECG ROUTINE & RHYTHM 2023-03-25 13:03:07 Heladio Klein [facility] STRIP [facility] CONSENT/REFUSAL FOR 2023-03-25 12:29:55 Doctor Vanessa [facility] DIAGNOSIS AND TREATMENT [place] [facility] [place] AUTHORIZATION FOR RELEASE 2021-06-18 05:01:00 Doctor Vanessa, [facility] [place] [facility] [place] EXTERNAL PROVIDER RECORDS 2020-11-20 06:01:00 Doctor Vanessa, [facility] CBC WITH DIFF 2020-10-29 13:10:00 Sravan [facility] MAGNESIUM 2020-10-29 09:36:00 [facility]OL[facility]EL 2020-10-29 09:36:00 [facility] (NA, K, CL, CO2, GLUCOSE, [facility] BUN, CREATININE, CA) PHOSPHORUS 2020-10-28 10:00:00 [facility] MAG[facility]ESIUM 2020-10-28 10:00:00 [facility] BASIC METABOLIC PANEL 2020-10-28 10:00:00 [facility] (NA, K, CL, CO2, GLUCOSE, [facility] BUN, CREATININE, CA) CBC WITH DIFF 2020-10-28 09:59:00 [facility] 2020-10-27 07:05:00 [facility] BASIC METABOLIC PANEL 2020-10-27 07:05:00 [facility] (NA, K, CL, CO2, GLUCOSE, Medica l Branch BUN, CREATININE, CA) CBC WITH DIFF 2020-10-27 07:05:00 [facility] URINALYSIS 2020-10-27 07:05:00 Suraj [facility] URINE CULTURE 2020-10-27 07:05:00 Suraj [facility] CBC WITH DIFF 2020-10-26 11:43:00 [facility] PHOSPHORUS 2020-10-26 03:41:00 [facility] MAGNESIUM 2020-10-26 03:41:00 [facility] BASIC METABOLIC PANEL 2020-10-26 03:41:00 [facility] (NA, K, CL, CO2, GLUCOSE, Medica l Branch BUN, CREATININE, CA) CBC WITH DIFF 2020-10-26 03:41:00 [facility] COVID-19 (ID NOW RAPID 2020-10-25 01:26:00 [facility] [place] [facility] Medical Branch LAB ONLY COVID 2020-10-25 01:26:00 [facility] INTERPRETATION [facility] BASIC METABOLIC PANEL 2020-10-24 22:27:00 Sravan [facility] (NA, K, CL, CO2, GLUCOSE, Medica l Branch BUN, CREATININE, CA) CBC WITH DIFF 2020-10-24 22:27:00 Hinson [facility] CT ABDOMEN PELVIS W 2020-10-24 21:20:40 [facility] BASIC METABOLIC PANEL 2020-10-17 23:11:00 Kalee [facility] (NA, K, CL, CO2, GLUCOSE, Medica l Branch BUN, CREATININE, CA) CLOSTRIDIUM DIFFICILE 2020-10-17 17:24:00 [facility] TOXIN [facility] MRSA / MSSA SCREEN BY 2020-10-15 01:09:00 Mandeep Garnica [facility] PHILL BERMUDEZ Davi [facility] SURGICAL PATHOLOGY EXAM 2020-10-14 15:01:00 Kalee [facility] EXPLORATORY LAPAROTOMY 2020-10-14 13:10:00 [facility] ILEOSTOMY TAKEDOWN 2020-10-14 13:10:00 [facility] ASSIGNMENT OF BENEFITS 2020-10-14 11:29:56 Doctor Unassigned, Un [facility] [place] [facility] URINALYSIS 2020-10-02 05:22:00 Ebony Chakraborty [facility] LIPASE 2020-10-02 05:19:00 Ebony Chakraborty [facility] HEPATIC FUNCTION PANEL 2020-10-02 05:19:00 Ebony Chakraborty [facility] ([id number]) (ALB,T.PRO,BILI Medical Branch T,BU/BC,ALT,AST,ALK PHOS) BASIC METABOLIC PANEL 2020-10-02 05:19:00 Ebony Chakraborty [facility] (NA, K, CL, CO2, GLUCOSE, Medica l Branch BUN, CREATININE, CA) CBC WITH DIFF 2020-10-02 05:19:00 Ebony Chakraborty [facility] CONSENT/REFUSAL FOR 2020-10-02 04:45:02 Doctor Unassigned, [facility] DIAGNOSIS AND TREATMENT [place] [facility] [place] COMP. METABOLIC PANEL 2020-09-16 12:00:00 Roby Jean [facility] ([id number]) Medical Branch COMP. METABOLIC PANEL 2020-09-15 09:58:00 [id number] Branch CREATINE KINASE 2020-09-14 16:03:00 Ted [facility] HEPATIC FUNCTION PANEL 2020-09-14 16:03:00 [facility] ([id number] (ALB,T.PRO,BILI Medical Branch T,BU/BC,ALT,AST,ALK PHOS) BASIC METABOLIC PANEL 2020-09-14 16:03:00 Ted [facility] (NA, K, CL, CO2, GLUCOSE, Medica l Branch BUN, CREATININE, CA) HEPATITIS B SURFACE 2020-09-14 10:15:00 Yulissa [facility] ANTIBODY [facility] Branch HEPATITIS B SURFACE 2020-09-14 10:15:00 [facility] ANTIGEN [facility] HCV BY PCR 2020-09-14 10:15:00 [facility] HB ECG ROUTINE & RHYTHM 2020-09-13 18:17:57 Hellen Sorenson [facility] STRIP Medical Branch MAGNESIUM 2020-09-13 18:16:00 Johnny [facility] TROPONIN I 2020-09-13 18:16:00 Delta [facility] LIPASE 2020-09-13 17:15:00 Delta [facility] COMP. METABOLIC PANEL 2020-09-13 17:15:00 Delta Hellen [facility] ([id number]) [facility] [place] CBC WITH DIFF 2020-09-13 17:15:00 Delta [facility] XR ABDOMEN 2 VW 2020-09-13 16:44:14 Delta Hellen [facility] EMERGENCY DEPARTMENT 2020-09-13 05:01:00 Doctor Unassigned, [facility] DOCUMENTS [place] [facility] CT ABDOMEN PELVIS W 2020-09-01 08:02:47 Shayla Munoz [facility] CONTRAST Medical Branch LIPASE 2020-09-01 07:10:00 Shayla Munoz [facility] Medical Branch COMP. METABOLIC PANEL 2020-09-01 07:10:00 Shayla Munoz [facility] ([id number]) Medical Branch CBC WITH DIFF 2020-09-01 07:10:00 Shayla [facility]oz [facility] ABDOMEN PELVIS W 2020-08-24 01:30:05 Matthias Silvestre [facility] CONTRAST Medical Branch LIPASE 2020-08-23 23:52:00 Matthias Silvestre [facility] Medical Branch CBC WITH DIFF 2020-08-23 23:52:00 Matthias Silvestre [facility] Branch CONSENT/REFUSAL FOR 2020-08-23 22:12:59 Doctor Vanessa, [facility] DIAGNOSIS AND TREATMENT [place] [facility] CT ABDOMEN PELVIS W 2020-08-18 02:24:35 Shayla Munoz [facility] CONTRAST Medical Branch LIPASE 2020-08-18 01:23:00 Shayla Munoz [facility] [place] COMP. METABOLIC PANEL 2020-08-18 01:23:00 Shayla Munoz [facility] ([id number]) Medical Branch CBC WITH DIFF 2020-08-18 01:23:00 Shayla Munoz [facility] [place] COVID-19 (ID NOW RAPID 2020-08-18 01:23:00 Shayla Munoz [facility] TESTING) Medical Branch NOTICE OF PRIVACY 2020-08-18 00:35:45 Doctor Vanessa, [facility] PRACTICES [place] [facility] CONSENT/REFUSAL FOR 2020-08-18 00:31:36 Doctor Vanessa [facility] DIAGNOSIS AND TREATMENT [place] [facility] AUTHORIZATION TO RELEASE 2020-08-09 05:01:00 Doctor Vanessa, [facility] PHI TO [facility] [place] [facility] PHOSPHORUS 2020-08-01 08:47:00 Yelena [facility] MAGNESIUM 2020-08-01 08:47:00 [facility] BASIC METABOLIC PANEL 2020-08-01 08:47:00 [facility] (NA, K, CL, CO2, GLUCOSE, Medica l Branch BUN, CREATININE, CA) CBC WITH DIFF 2020-08-01 08:47:00 [facility] PHOSPHORUS 2020-07-31 10:06:00 [facility] MAGNESIUM 2020-07-31 10:06:00 [facility] BASIC METABOLIC PANEL 2020-07-31 10:06:00 [facility] (NA, K, CL, CO2, GLUCOSE, Medica l Branch BUN, CREATININE, CA) CBC WITH DIFF 2020-07-31 10:06:00 [facility] PHOSPHORUS 2020-07-30 09:29:00 [facility] MAGNESIUM 2020-07-30 09:29:00 [facility] BASIC METABOLIC PANEL 2020-07-30 09:29:00 [facility] (NA, K, CL, CO2, GLUCOSE, Medica l Branch BUN, CREATININE, CA) BASIC METABOLIC PANEL 2020-07-29 10:11:00 [facility] (NA, K, CL, CO2, GLUCOSE, Medica l Branch BUN, CREATININE, CA) CBC WITHOUT DIFF 2020-07-29 10:11:00 [facility] / INR 2020-07-29 10:11[facility]00 [facility] 2020-07-29 10:11:00 [facility] FIBRINOGEN 2020-07-29 10:11:00 [facility] TU[facility]. BLUE 2020-07-29 10:11:00 Kalee [facility] EXTRA TUBE LT. GREEN 2020-07-29 10:11:[address] [facility] XR KUB 2020-07-29 09:55:00 Mark [facility] CBC WITHOUT DIFF 2020-07-28 10:15:00 Devan [facility] BASIC METABOLIC PANEL 2020-07-28 09:47:00 Farooq Hartman [facility] (NA, K, CL, CO2, GLUCOSE, [facility] BUN, CREATININE, CA) BASIC METABOLIC PANEL 2020-07-27 10:39:00 Farooq Hartman [facility] (NA, K, CL, CO2, GLUCOSE, [facility] BUN, CREATININE, CA) CBC WITHOUT DIFF 2020-07-27 10:39:00 Devan [facility] BASIC METABOLIC PANEL 2020-07-26 07:53:00 Farooq Hartman [facility] (NA, K, CL, CO2, GLUCOSE, [facility] BUN, CREATININE, CA) CBC WITHOUT DIFF 2020-07-26 07:53:00 Farooq Hartman [facility] MAGNESIUM 2020-07-26 00:13:00 Devan [facility] BASIC METABOLIC PANEL 2020-07-26 00:13:00 Farooq Hartman [facility] (NA, K, CL, CO2, GLUCOSE, [facility] BUN, CREATININE, CA) CBC WITHOUT DIFF 2020-07-26 00:13:00 Devan [facility] PROTHROMBIN TIME / INR 2020-07-26 00:13:00 Farooq [facility] ACTIVATED PARTIAL 2020-07-26 00:13:00 Farooq Hartman [facility] THRLegacy [facility] SURGICAL PATHOLOGY EXAM 2020-07-25 22:08:00 [facility] ILEOSTOMY 2020-07-25 20:18:00 [facility] ILEOCECECTOMY 2020-07-25 20:18:00 [facility] BASIC METABOLIC PANEL 2020-07-25 11:35:00 Akshat Tuttle [facility] (NA, K, CL, CO2, GLUCOSE, Medica l Branch BUN, CREATININE, CA) CBC WITHOUT DIFF 2020-07-25 11:35:00 Akshat Tuttle [facility] ABORH CONFIRMATION 2020-07-25 04:37:00 Mercedez Negro [facility] HB ABO GROUPING 2020-07-25 04:12:00 Oliver Nunez [facility] BASIC METABOLIC PANEL 2020-07-24 07:34:00 Dc Jay [facility] (NA, K, CL, CO2, GLUCOSE, Medica l Branch BUN, CREATININE, CA) CBC WITHOUT DIFF 2020-07-24 07:34:00 Dc Jay [facility] XR ABDOMEN 1 VW 2020-07-24 06:56:00 Dc Jay [facility] EKG-12 LEAD 2020-07-24 06:39:07 Farooq Zepeda [facility] COVID-19 (ID NOW RAPID 2020-07-24 00:26:00 Mercedez Negro [facility] AC[facility] WHOLE BLOOD 2020-07-24 00:24:00 Mercedez Negro [facility] BLOOD CULTURE SCREEN 2020-07-23 21:41:00 Mercedez Negro [facility] LACTIC ACID WHOLE BLOOD 2020-07-23 21:41:00 Mercedez Negro [facility] CT ABDOMEN PELVIS W 2020-07-23 20:56:34 Mercedez Negro [facility] LIPASE 2020-07-23 19:31:00 Mer[facility] HEPATIC FUNCTION PANEL 2020-07-23 19:31:00 Mercedez Negro [facility] ([id number]) (ALB,T.PRO,BILI [facility] Branch T,BU/BC,ALT,AST,ALK PHOS) BASIC METABOLIC PANEL 2020-07-23 19:31:00 Mercedez Negro [facility] (NA, K, CL, CO2, GLUCOSE, Medica l Branch BUN, CREATININE, CA) CBC WITH DIFF 2020-07-23 19:31:00 Merced[facility] URINALYSIS 2020-07-23 19:19:00 Mercedez [facility] NOTICE OF PRIVACY 2020-07-23 16:48:03 Doctor Unassigned, [facility] PRACTICES [facility] CONSENT/REFUSAL FOR 2020-07-23 16:47:54 Doctor Vanessa [facility] DIAGNOSIS AND TREATMENT [facility] [place] AGREEMENTS AUTHORIZATIONS 2020-07-23 05:01:00 Doctor Vanessa, [facility] AND IRREVOCABLE [facility] ASSIGNMENTS (FORM 2001) CT ABDOMEN PELVIS W 2019-06-15 18:45:34 Mary Jo Dukes [facility] CONTRAST [facility] LACTIC ACID WHOLE BLOOD 2019-06-15 17:46:00 [facility] LIPASE 2019-06-15 17:30:00 [facility] HEPATIC FUNCTION PANEL 2019-06-15 17:30:00 Mary Jo Dukes [facility] ([id number]) (ALB,T.PRO,BILI Medical Branch T,BU/BC,ALT,AST,ALK PHOS) BASIC METABOLIC PANEL 2019-06-15 17:30:00 Mary Jo Dukes [facility] (NA, K, CL, CO2, GLUCOSE, Medica l Branch BUN, CREATININE, CA) CBC WITH DIFFERENTIAL 2019-06-15 17:30:00 Mary Jo Dukes [facility] POCT TEST 2019-06-15 17:24:00 Mary Jo Dukes [facility] URINALYSIS 2019-06-15 17:22:00 [facility] NOTICE OF PRIVACY 2019-06-15 16:39:09 Doctor Vanessa, [facility] PRACTICES [facility] [place] CONSENT/REFUSAL FOR 2019-06-15 16:38:53 Doctor Vanessa [facility] DIAGNOSIS AND TREATMENT [facility] [place] Plan of Care Planned Activity Planned Date Details Comments Source Future Scheduled Test 2023-08-15 00:00:00 IMM Influenza [facility] Seasonal (>/= 19 yrs) [code = IMM Influenza Seasonal (>/= 19 yrs)] Future Scheduled Test 2022-08-15 00:00:00 IMM Influenza [facility] Seasonal (>/= 19 yrs) [code = IMM [...] Future Scheduled Test 2004 00:00:00 Screening for [facility] malignant neoplasm of cervix (procedure) [code = 602800061] Future Scheduled Test 2004 00:00:00 Screening for [facility] malignant neoplasm of cervix (procedure) [code = 612025932] Future Scheduled Test 2004 00:00:00 Screening for [facility] malignant neoplasm of cervix (procedure) [code = 674999555] Future Scheduled Test 2004 00:00:00 Screening for [facility] malignant neoplasm of cervix (procedure) [code = 636356045] Future Scheduled Test 2004 00:00:00 Screening for [facility] malignant neoplasm of cervix (procedure) [code = 052528174] Future Scheduled Test 2004 00:00:00 Screening for [facility] malignant neoplasm of cervix (procedure) [code = 526720509] Future Scheduled Test 2004 00:00:00 Screening for [facility] malignant neoplasm of cervix (procedure) [code = 360093108] Future Scheduled Test 2004 00:00:00 Screening for [facility] malignant neoplasm of cervix (procedure) [code = 350281547] Future Scheduled Test 2004 00:00:00 Screening for [facility] malignant neoplasm of cervix (procedure) [code = 551272989] Future Scheduled Test 2004 00:00:00 Screening for [facility] malignant neoplasm of cervix (procedure) [code = 852935068] Future Scheduled Test 2004 00:00:00 Screening for [facility] malignant neoplasm of cervix (procedure) [code = 482845237] Future Scheduled Test 2004 00:00:00 Screening for [facility] malignant neoplasm of cervix (procedure) [code = 476405169] Future Scheduled Test 1975-04-08 00:00:00 COVID-19 Vaccine [...] Future Scheduled Test 1974 00:00:00 Fluoride Varnish [facility] [code = Fluoride Varnish] Future Scheduled Test 1974 00:00:00 Fluoride Varnish [facility] [code = Fluoride Varnish] Encounters Start End Encounter Admission Attending Care Care Encounter Source Date/Time Date/Time Type Type Clinicians Facility Department ID 2021-09-13 Emergency [facility] [id number] Univers 06:14:00 ity of [facility] 2021-09-13 Outpatient DARREN CHUN [facility] [id number] Univers 05:23:22 ity of [facility] 2021-09-13 Emergency [facility] [id number] Univers 04:35:58 ity of [facility] 2021-09-13 Emergency [facility] [id number] Univers 02:03:39 ity of [facility] 2021-09-13 Emergency [facility] [id number] Univers 00:06:17 ity of [facility] 2021-09-12 Emergency [facility] [id number] Univers 23:33:58 ity of [facility] 2021-09-12 Emergency [facility] [id number] Univers 22:11:08 ity of [facility] 2021-09-12 Emergency [facility] [id number] Univers [facility]20 Inpatient HCAPM JOSE ROBERTO [id number] [facility] 10:26:00 41 [facility] 2021-01-10 Inpatient HCAWU JOSE ROBERTO [id number] [facility] 20:22:[address] [facility] 2023-03-25 2023-03-25 [facility] [id number] Univers 07:41:00 14:17:00 HELADIO datmarion [facility] 2023-03-25 2023-03-25 [facility] 1.2.941.402 [id number] Univers 07:41:00 14:17:00 Heladio BENAVIDEZ 350.1.13.10 i ty adriane [place] 4.2.7.2.[address] [facility] [id number] [facility] 084 Branch 2023-03-25 2023-03-25 Orders Doctor KELLY 1.2.840.114 [id number] Univers 00:00:00 00:00:00 Only Unassigned, ARMAND 350.1.13.10 ity of [place] [facility] 4.2.7.2.[id number] [facility] 009 Branch 2021-06-18 2021-06-18 Orders Doctor LETICIA 1.2.840.114 [id number] Univers 00:00:00 00:00:00 Only Unassigned, ARMAND 350.1.13.10 ity of [place] [facility] 4.2.7.2.[id number] [facility] 009 Branch 2021-05-31 2021-05-31 Emergency E SPARTA, MHNW MHNW 7504 MHNW 11:46:00 20:16:00 SPANGLERIfeomaKRISTINA 2021-03-20 2021-03-20 Outpatient Rich, HCACL HCACL [id number] [facility] 18:43:30 18:43:30 Safi 05 [facility] 2021-01-03 2021-01-03 Patient Anne Fuentes 1.2.840.114 [id number] Univers 00:00:00 00:00:00 Outreach Mercedez Narayanan 350.1.13.10 [place] [place] [id number] [facility] 403 Branch 2020-11-26 2020-11-26 Outpatient Nick [facility] [id number] Univers 09:00:00 09:00:00 ORPHEUS ity [facility] 2020-11-26 2020-11-26 Telephone Darren Chun [facility] 1.2.840.114 [id number] Univers 00:00:00 00:00:00 Health 350.1.13.10 [place].2.[place] - [id number] [facility] 408 Branch 2020-11-22 2020-11-22 Outpatient [facility] [id number] Univers 15:30:00 15:30:00 ORPHEUS ity [facility] 2020-11-20 2020-11-20 Orders Doctor KELLY 1.2.840.114 [id number] Univers 00:00:00 00:00:00 Only Unassigned, ARMAND 350.1.13.10 ity of [place] [facility] 4.2.7.2.[phone] [facility] 009 Branch 2020-11-19 2020-11-19 Outpatient R VILLANUEVA [facility] [id number] Univers 11:15:00 11:15:00 ORPHEUS ity of [facility] 2020-11-12 2020-11-12 Patient Deepika Ramirez Anne 1.2.840.114 [id number] Univers 00:00:00 00:00:00 Outreach E Narayanan 350.1.13.10 [place].[address] [place] [id number] [facility] [address] [place] 2020-11-11 2020-11-11 Telephone [facility] 1.2.840.114 [id number] Univers 00:00:00 00:00:00 Orpheus [facility] 350.1.13.10 it[place] - [phone] Med ical [address] 2020-11-05 2020-11-05 Telephone Darren Chun [facility] 1.2.840.114 [id number] Univers 00:00:00 00:00:00 SPECIALTY 350.1.13.10 it[place] of [place].2.[place] [phone] Or dical [address] 2020-11-01 2020-11-01 Patient Deepika Ramirez Anne 1.2.840.114 [id number] Univers 00:00:00 00:00:00 Outreach E Narayanan 350.1.13.10 [place] 4[place]7.2.[address] [id number] [facility] 403 Branch 2020-10-31 2020-10-31 Transition Anne Damon 1.2.840.114 [id number] 00:00:00 00:00:00 of Care Lydna Narayanan 350.1.13.10 [place] 4.2.7.2.686 [id number] [facility] 2020-10-31 2020-10-31 Transition Anne Damon 1.2.840.114 [id number] Univers 00:00:00 00:00:00 of Care Lynda Narayanan 350.1.13.10 [place] [phone] [address] 2020-10-24 2020-10-30 [facility] 1.2.840.114 [id number] 13:38:00 19:38:00 Encounter Armand 350.1.13.10 Hospital 4.2.7.2.686 [id number] Critical access hospital 2020-10-24 2020-10-30 [facility] Blaire 1.2.840.114 [id number] [facility] 13:38:00 19:38:00 Encounter Girard 350.1.13.10 ity of [facility] 4.2.7.2.686 [place] as [phone] [address] 2020-10-24 2020-10-30 Inpatient X GOLISANO [facility] [id number] [facility] 13:38:00 19:38:00 ity of [facility] 2020-10-21 2020-10-21 Transition Anne Damon 1.2.840.114 [id number] 00:00:00 00:00:00 of Care Lynda Narayanan 350.1.13.10 [place] 4.2.7.2.686 [id number] [facility] 2020-10-21 2020-10-21 Transition Anne Damon 1.2.840.114 [id number] [facility] 00:00:00 00:00:00 of Care Lynda Narayanan 350.1.13.10 [place] [id number] [address] 2020-10-14 2020-10-19 [facility] 1.2.840.114 7 [id number] 05:48:00 15:50:00 Encounter Girard 350.1.13.10 Hospital 4.2.7.2.686 [id number] Critical access hospital 2020-10-14 2020-10-19 [facility] 1.2.840.114 [id number] [facility] 05:48:00 15:50:00 Encounter Armand 350.1.13.10 ity of Hospital 4.2.7.2.[phone] [facility] [address] [place] 2020-10-16 2020-10-16 Patient Deepika Ramirez 1.2.840.114 [id number] 00:00:00 00:00:00 Outreach E Narayanan 350.1.13.10 [place] 4.2.7.2.686 [id number] [facility] 2020-10-16 2020-10-16 Patient Deepika Ramirez 1.2.840.114 [id number] Univers 00:00:00 00:00:00 Outreach E Narayanan 350.1.13.10 [place]2.[address] [id number] [facility] [address] [place] 2020-10-14 2020-10-14 Orders Doctor KELLY 1.2.840.114 [id number] 00:00:00 00:00:00 Only Unassigned, ARMAND 350.1.13.10 [place] [facility] 4.2.7.2.686 [id number] [facility] 2020-10-14 2020-10-14 Orders Doctor LETICIA 1.2.840.[id number] [place] [address] 00:00:00 00:00:00 Only Unassigned, ARMAND 350.1.13.10 ity of [place] [facility] 4.2.7.2.[phone] [facility] [address] [place] 2020 2020 Laboratory Only, [facility] 1.2.840.114 7 [id number] 14:56:46 15:11:46 Only Test [place] 350.1.13.10 [place] 4.2.7.2.686 [place] [phone] [facility] 2020 2020 Laboratory Only, Adc Test [facility] 1.2.840. 114 [id number] [facility] 14:56:46 15:11:46 Only Darren Chun [place] 350.1.13.10 ity of [place] 4.2.7.2.686 [place] [phone] [address] 2020 2020 Outpatient R [facility] [id number] Univers 14:45:00 14:45:00 ity of [facility] 2020-10-07 2020-10-07 Patient Deepika Ramirez 1.2.840.114 [id number] 00:00:00 00:00:00 Outreach E Narayanan 350.1.13.10 [place] 4.2.7.2.686 [id number] [facility] 2020-10-07 2020-10-07 Patient Deepika Ramirez 1.2.840.114 [id number] Univers 00:00:00 00:00:00 Outreach E Narayanan 350.1.13.10 [place] [id number] [address] 2020-10-01 2020-10-02 Emergency [facility] 1.2.840.114 [id number] Univers 23:00:00 01:14:00 Ebony Benavidez 350.1.13.10 ity of [place] 4.2.7.2.686 [place] [id number] [place]1384 [place] 2020-10-01 2020-10-01 Transition Anne Damon 1.2.840.114 [id number] Univers 00:00:00 00:00:00 of Care Lynda Narayanan 350.1.13.10 [place] [id number] [address] 2020-09-30 2020-09-30 Telephone Kalee [facility] 1.2.840.114 [id number] Univers 00:00:00 00:00:00 Health 350.1.13.10 it y of [place].2.[place].2.[place] - [phone] Med ica [facility] [address] [place] 2020-09-27 2020-09-27 Office Kalee [facility] 1.2.840.114 [id number] Univers 09:20:41 09:35:41 Visit Health 350.1.13.10 it y of [place] 4.2.[place].2.[place] - [phone] Med ica MDA [address] [place] 2020-09-27 2020-09-27 Outpatient R DARREN CHUN [facility] [id number] Univers 09:30:00 09:30:00 ity of [facility] 2020-09-24 2020-09-24 Telephone Kalee [facility] 1.2.840.114 [id number] Univers 00:00:00 00:00:00 Health 350.1.13.10 it y of [place] 4.2.7.2.686 [place] - [phone] [facility] 408 Branch 2020-09-19 2020-09-19 Transition Anne Damon 1.2.840.114 [id number] Univers 00:00:00 00:00:00 of Care Lynda Narayanan 350.1.13.10 [place] 4[place]7.2.[address] [id number] [facility] 403 [address] 2020-09-19 2020-09-19 Patient Deepika Ramirez 1.2.840.114 [id number] Univers 00:00:00 00:00:00 Outreach E Narayanan 350.1.13.10 [place] 4[place]7.2.[address] [id number] [facility] 403 Branch 2020-09-13 2020-09-18 Hospital Hellen Sorenson [facility] 1.2.840.1 [id number] Univers 10:29:00 17:07:00 Encounter Roby Jean 350.1.13.10 ity of [place] 4.2.7.2.[place] [id number] [facility] 081 Branch 2020-09-17 2020-09-17 Patient Deepika Ramirez 1.2.840.114 [id number] Univers 00:00:00 00:00:00 Outreach E Narayanan 350.1.13.10 [place] 4[place].[address] [place] [id number] [facility] 403 [address] 2020-09-16 2020-09-16 Patient Deepika Ramirez 1.2.840.114 [id number] Univers 00:00:00 00:00:00 Outreach E Narayanan 350.1.13.10 [place] [phone] [address] 2020-09-16 2020-09-16 Patient Anne Fuentes 1.2.840.114 [id number] Univers 00:00:00 00:00:00 Outreach Mercedez Barlow Narayanan 350.1.13.10 [place] [id number] [address] 2020-09-13 2020-09-13 Patient Deepika Ramirezmamie 1.2.840.114 [id number] Univers 00:00:00 00:00:00 Outreach E Narayanan 350.1.13.10 [place] [id number] [address] 2020-09-12 2020-09-12 Transition Anne Damon 1.2.840.114 [id number] Univers 00:00:00 00:00:00 of Care Lynda Narayanan 350.1.13.10 [place] [id number] [address] 2020-09-12 2020-09-12 Patient Deepika Ramirez 1.2.840.114 [id number] Univers 00:00:00 00:00:00 Outreach E Narayanan 350.1.13.10 [place] [id number] [address] 2020-09-12 2020-09-12 Patient Deepika Ramirez 1.2.840.114 [id number] Univers 00:00:00 00:00:00 Outreach E Narayanan 350.1.13.10 [place] [id number] [address] 2020-09-12 2020-09-12 Patient Anne Fuentes 1.2.840.114 [id number] Univers 00:00:00 00:00:00 Outreach Mercedez Barlow Narayanan 350.1.13.10 [place] [id number] [address] 2020-09-12 2020-09-12 Telephone DANIEL Allen 1.2.840.114 [id number] Univers 00:00:00 00:00:00 [place] SPECIALTY 350.1.13.10 ity of CARE 4.2.7.2.686 [facility] AT [phone] Or maximus LARA 072 [facility] 2020-09-06 2020-09-06 Outpatient R KALEE [facility] [id number] Univers 11:00:00 11:00:00 ity of [facility] 2020-09-03 2020-09-03 Outpatient R [facility] [id number] Univers 11:00:00 11:00:00 ity of [facility] 2020-09-01 2020-09-01 Emergency [facility] 1.2.748.470 [id number] Univers 01:42:00 07:20:00 Shayla Benavidez 350.1.13.10 ity of [place] 4.2.7.2.686 [facility] [phone] [place] 681384 [place] 2020-08-29 2020-08-29 Telephone [facility] 1.2.840.114 [id number] Univers 00:00:00 00:00:00 Ordanie Alonso Health 350.1.13.10 ity of Cancer 4.2.7.2.686 [facility] - [phone] Med ical [facility] [address] 2020-08-28 2020-08-28 Telephone [facility] 1.2.840.114 [id number] Univers 00:00:00 00:00:00 Health 350.1.13.10 it y of Cancer 4.2.7.2.686 [facility] - [phone] Med ical MDA 408 [address] 2020-08-23 2020-08-23 Emergency [facility] 1.2.310.601 [id number] Univers 17:35:00 22:19:00 Matthias Benavidez 350.1.13.10 i ty of [place] 4.2.7.2.686 [facility] [id number] [facility] 084 Branch 2020-08-20 2020-08-20 Deepika Candelario [facility] 1.2.840.114 [id number] Univers 11:14:50 12:08:13 Visit PersonDaquan HEALTH 350.1.13.10 ity of CLINICS 4.2.7.2.686 [facility] [id number] [facility] [address] [place] 2020-08-20 2020-08-20 Outpatient R [facility] [id number] Univers 11:00:00 11:00:00 ity of [facility] 2020-08-20 2020-08-20 [facility] 1.2.840.114 [id number] Univers 00:00:00 00:00:00 Health 350.1.13.10 it y of Cancer 4.2.7.2.686 [facility] - [phone] [facility] [address] [place] 2020-08-17 2020-08-18 [facility] 1.2.100.093 [id number] Univers 19:34:00 00:56:00 Shayla Benavidez 350.1.13.10 ity of [place] 4.2.7.2.686 [facility] [id number] [facility] 0[address] [place] 2020-08-09 2020-08-09 Office [facility] 1.2.840.114 [id number] Univers 10:32:05 10:47:05 Visit Health 350.1.13.10 it y of Cancer 4.2.7.2.686 [facility] - [id number] Med [facility] [address] [place] 2020-08-09 2020-08-09 [id number] Univers 10:45:00 10:45:00 ity of [facility] 2020-08-09 2020-08-09 Orders Doctor LETICIA 1.2.840.114 [id number] Univers 00:00:00 00:00:00 Only Unassigned, ARMAND 350.1.13.10 ity of [place] [facility] 4.2.7.2.686 [facility] [id number] [facility] [address] [place] 2020-08-05 2020-08-05 [facility] 1.2.840.114 [id number] Univers 00:00:00 00:00:00 Health 350.1.13.10 it y of [place] 4.2.7.2.686 [place] [facility] [id number] Med ical [facility] 408 [address] 2020-08-02 2020-08-02 Transition Anne Ramirez 1.2.840.114 [id number] Univers 00:00:00 00:00:00 of Care Destinee Narayanan 350.1.13.10 i ty of [place] 4.2.7.2.686 [id number] 403 [address] 2020-07-23 2020-08-01 Hospital Zackarymiquel Timbo Jennie 1.2.840 .114 [id number] Univers 11:58:00 17:47:00 Encounter Shayla Munoz 350.1.13.10 ity of [facility] 4.2.7.2.686 [facility] [id number] Medical 091 Branch 2020-07-23 2020-07-23 Emergency X [facility] ERT [id number] Univers 11:58:00 11:58:00 MERCEDEZ scott of [facility] 2020-07-23 2020-07-23 Orders Doctor LETICIA 1.2.840.114 [id number] Univers 00:00:00 00:00:00 Only Unassigned, ARMAND 350.1.13.10 ity of [place] [facility] 4.2.7.2.[id number] [facility] 009 Branch 2019-12-09 2019-12-09 Emergency E MHSE MHSE [id number] MH 09:16:00 09:16:00 [facility] 2019-06-15 2019-06-15 Emergency [facility] 1.2.840.114 [id number] Univers 11:46:39 15:08:00 Mary Jo Benavidez 350.1.13.10 ity of [place] 4.2.7.2.686 [facility] [phone] [place] 681384 [place] Results Test Description Test Time Test Comments Results Result Comments Source TROPONIN I 2023-03-25 14:52:01 Test Item Value Reference Range Interpretation Comme nts TROPONIN I (test code = 4476296183) 0.005 ng/mL <=0.034 RAUDEL (test code = RAUDEL) Reference (Normal) Range (defined by the 99th percentile reference limit): <= 0.034 ng/mL Note: Cardiac troponin begins to rise 3-4 hours after the onset of ischemia. Repeat in 4-6 hours if the sample was drawn within 3-4 hours of the onset of the symptom and found normal. Diagnosis of myocardial injury is made with acute changes in cTn concentrations with at least one serial sample above the 99th percentile upper reference limit (URL), taken together with the patient's clinical presentation. Biotin has been reported to cause a negative bias, interpret results relative to patient's use of biotin. Lab Interpretation (test code = Normal 03955-0) [id number] 14:48:36 Test Item Value Reference Range Interpretation Comments NT-proBNP (test code = 35 pg/mL <=125 0268800419) RAUDEL (test code = RAUDEL) Biotin has been reported to cause a negative bias, interpret results relative to patient's use of biotin. Lab Interpretation (test Normal code = 28249-7) [facility] (69020)2023-03-25 14:41:17 Test Item Value Reference Range Interpretation Comments NA (test code = 139 mmol/L 135-145 5662927441) K (test code = 4.0 mmol/L 3.5-5.0 5542629390) CL (test code = 101 mmol/L 98-108 4589000771) CO2 TOTAL (test code = 29 mmol/L 23-31 9527032053) AGAP (test code = 9 2-16 7949291440) BUN (test code = 17 mg/dL 7-23 3872313809) GLUCOSE (test code = 117 mg/dL 70-110 H 9382738242) CREATININE (test code = 0.81 mg/dL 0.50-1.04 1618354557) TOTAL BILI (test code = 0.8 mg/dL 0.1-1.2 9970170267) CALCIUM (test code = 9.6 mg/dL 8.6-10.6 9075501685) T PROTEIN (test code = 7.8 g/dL 6.3-8.2 4204790492) ALBUMIN (test code = 4.4 g/dL 3.5-5.0 1647620667) ALK PHOS (test code = 66 U/L 34-122 1815846215) ALTv (test code = 23 U/L 5-35 1742-6) AST(SGOT) (test code = 27 U/L 13-40 8838178979) eGFR (test code = 75.5 mL/min/1.73m2 5476906577) RAUDEL (test code = RAUDEL) Association of [...] tests). Lab Interpretation Abnormal (test code = 09471-7) [facility] 14:40:57 Test Item Value Reference Range Interpretation Comments LIPASE (test code = 0978947670) 74 U/L 0-220 Lab Interpretation (test code = Normal 19593-3) [facility] WITH [id number] 14:15:35 Test Item Value Reference Range Interpretation Comments WBC (test code = 7.81 See_Comment [Automated 6690-2) message] The sy stem which generated this result transmitted reference range : 4.30 - 11.10 10*3/?L. The reference range was not used to interpret this result as normal/abnormal . RBC (test code = 4.14 See_Comment [Automated 789-8) message] The sy stem which generated this result transmitted reference range : 3.93 - 5.25 10*6/?L. The reference range was not used to interpret this result as normal/abnormal . HGB (test code = 12.9 g/dL 11.6-15.0 718-7) HCT (test code = 39.5 % 35.7-45.2 4544-3) MCV (test code = 95.4 fL 80.6-95.5 787-2) MCH (test code = 31.2 pg 25.9-32.8 785-6) MCHC (test code = 32.7 g/dL 31.6-35.1 786-4) RDW-SD (test code = 41.0 fL 39.0-49.9 83482-0) RDW-CV (test code = 11.8 % 12.0-15.5 L 788-0) PLT (test code = 262 See_Comment [Automated 777-3) message] The sy stem which generated this result transmitted reference range : 166 - 358 10*3/ ?L. The reference r madelin was not used to interpret this result as normal/abnormal . MPV (test code = 10.2 fL 9.5-12.9 06792-8) NRBC/100 WBC (test 0.0 See_Comment [Automat ed code = 1933630992) message] The system which generated this result transmitted reference range : 0.0 - 10.0 /100 WBCs. The refer ence range was not u sed to interpret th is result as normal/abnormal . NRBC x10^3 (test code See_Comment [Auto mated = 8301482775) message] The s ystem which generated this result transmitted reference range : 10*3/?L. The reference range was not used to interpret this result as normal/abnormal . GRAN MAT (NEUT) % 81.2 % (test code = 770-8) IMM GRAN % (test code 0.40 % = 4575132946) LYMPH % (test code = 12.5 % 736-9) MONO % (test code = 4.5 % 5905-5) EOS % (test code = 0.9 % 713-8) BASO % (test code = 0.5 % 706-2) GRAN MAT x10^3(ANC) 6.34 10*3/uL 1.88-7.09 (test code = 7535568926) IMM GRAN x10^3 (test 0.03 10*3/uL 0.00-0.06 code = 6994366449) LYMPH x10^3 (test code 0.98 10*3/uL 1.32-3.29 L = 731-0) MONO x10^3 (test code 0.35 10*3/uL 0.33-0.92 = 742-7) EOS x10^3 (test code = 0.07 10*3/uL 0.03-0.39 711-2) BASO x10^3 (test code 0.04 10*3/uL 0.01-0.07 = 704-7) Lab Interpretation Abnormal (test code = 89546-1) [facility] W/NENM6063-25-67 13:55:00 [facility] 1975 Sex: F Name: EDEN CHAKRABORTY [facility] : 1975 Age/S: 45 / F [address] Unit #: [id number] Loc: [place] [address] Phys: Lemuel Villanueva DO Acct: [id number] Dis Date: Status: REG ER PHONE #: [phone] Exam Date: 03/20/2021 1331 FAX #: Reason: epigastric pain, h/o Crohn's, SBO EXAMS: CPT: [id number] CT ABD PELVIS W/CONT 06415 Site ID: [id number] CLINICAL HISTORY: Epigastric abdominal [...] size is normal. The liver is normal insize and contour, without focal abnormality. The gallbladder is unremarkable. No biliary ductal dilatation. The spleen, pancreas and adrenal glands are unremarkable. Both kidneys are normal in size. Nohydronephrosis or enhancing renal mass. Vascular structures are normal in caliber and appearance. Noileus, bowel obstruction or inflammatory changes, postsurgical changes are present involving the bowel the right lower quadrant. No ascites. Urinary bladder appears normal. No evidence of sacroiliitis or acute bony pathology. Moderately advanced bilateral hip joint arthritis. IMPRESSION: No acute findings at 2046 Reported and signed by: Kang Bates M.D. PAGE 1 Signed Report (CONTINUED) Name: EDEN CHAKRABORTY : 1975Age/S: 45 / F [address] [facility] Unit #: [id number] Loc: [place] [address] Phys: Lemuel Villanueva DO Acct: [id number] Dis Date: Status: REG ER PHONE #: [phone] Exam Date: 03/20/2021 1335 FAX #: Reason: epigastric pain, h/o Crohn's, SBO EXAMS: CPT: [id number] CT ABD PELVIS W/CONT 39726 <Continued> CC: Lemuel Villanueva DO Technologist:Che Anthony, RT(R)(CT) CTDI: DLP: Trnscb Date/Time: 04/2021 (6842) DanaeAJP6 Orig Print D/T: S: 03/20/2021 (1805) PAGE 2 Signed Report- XR RIBS UNI W/CXR 3+V [id number] 13:47:00 [facility] 1975 Sex: F Name: EDEN CHAKRABORTY [place] : 1975 Age/S: 45 / F [address] Unit #: [id number] Loc: [place] [address] Phys: Lemuel Villanueva DO Acct: [id number] Dis Date: Status: REG ER PHONE #: [phone] Exam Date: 03/20/2021 1231 FAX #: Reason: left rib pain EXAMS: CPT: [id number] XR RIBS UNI W/CXR 3+[place] [address] Fluoro Time: DAP (Gy m2): Air Kerma (mGy): LOCATION: T18 EXAM: - XR RIBS UNIW/CXR 3+V LT INDICATION: left rib pain, COMPARISON: [...] DO PAGE 1 Signed Report Name: EDEN CHAKRABORTYland : 1975 Age/S: 45 / F [address] Unit #: [id number] Loc: [place] [address] Phys: Lemuel Villanueva DO Acct: [id number] Dis Date: Status: REG ER PHONE #: [phone] Exam Date: FAX #: Reason: left rib pain EXAMS: CPT: [id number] XR RIBS UNI W/CXR 3+[place] [address] Fluoro Time:DAP (Gy m2): Air Kerma (mGy): <Continued> Technologist: Cady Pendleton, RT(R)(MR) Trnscb Date/Time: 03/20/2021 (4757) [email or web address] Orig Print D/T: S: 03/20/2021 (2146) PAGE 2 Signed ReportHCG [id number] 12:51:00 Test Item Value Reference Range Interpretation Comments HCG SERUM (test < 1 mi-IU/ML 0-6 N 0 - 6 NOT P REGNANT > 6 code = HCG) SUGGESTIVE OF E ERIS RISES TWO FOLD EVERY 2 DAYS; S UGGEST RECONFIRMING AF TER 2 DAYS. 150,000-2 [address] TRIMESTER 10 ,000 - 50,000 2ND & 3R D TRIMESTER BASIC METABOLIC [id number] 12:49:00 Test Item Value Reference Range Interpretation [...] 8.5-10.1 N Completed by Nursing: NOHEPATIC FUNCTION [id number] 12:49:00 Test Item Value Reference Range Interpretation [...] N code = ALKP) Completed by Nursing: [id number] 12:49:00 Test Item Value Reference Range Interpretation Comments LIPASE (test code = LIP) 77 Unit/L 114-286 L Completed by Nursing: KQDHQFLYGX-F6311-34-06 12:49:00 Test Item Value Reference Range Interpretation [...] tarun yby method. Completed by Nursing: NOPROTHROMBIN [id number] 12:25:00 Test Item Value Reference Range Interpretation Comments PT PATIENT (test code = PTP) 10.7 SECONDS 9.3-12.9 N INTERNATIONAL NORMAL RATIO 0.96 INR Unit 0.8-1.2 N (test code = INR) CBC W/AUTO [id number] 12:23:00 Test Item Value Reference Range Interpretation [...] = MDIFF) UA RFLX MICR CULT IF [id number] 12:18:00 Test Item Value Reference Range Interpretation [...] URINE: CLEAN CATCHUA RFLX MICR CULT IF [id number] 12:18:00 Test Item Value Reference Range Interpretation [...] RiskForSepsis-no oth srcSOURCE OF URINE: CLEAN CATCHLACTIC [id number] 11:59:00 Test Item Value Reference Range Interpretation Comments LACTIC ACID (test code = LACT) 1.3 mmol/L 0.4-2.0 N - XR KNEE 3 V [id number] 21:05:00 [facility] 1975 Sex: F Patient Name: EDEN CHAKRABORTY Unit No: [id number] EXAMS: CPT CODE: [id number] XR KNEE 3 V RT [address] Location: H3 Right knee x-ray exam: 3 [...] (RT) Transcrpt Date/Tm/Trnsp: 01/10/2021 (2104) [email or web address].[email or web address] Orig PrintD/T: S: 01/10/2021 (2107) [facility] NAME: EDEN CHAKRABORTY [address] [address] PHYS: [place] [address] : 1975 AGE: 45 SEX: F LOC: [facility] PHONE #: [phone] EXAM DATE: 01/10/2021 STATUS: REG ER FAX #: [phone] RADIOLOGY NO: [id number] PAGE 1 Signed ReportCBC WITH DIFF 2020-10-29 [...] (test code = 51.6 fL 39-49.9 H 15318-8) RDW-CV (test code = 14.3 % 12-15.5 788-0) PLT (test code = See_Comment H [Automated 777-3) message] The sy stem which generated this result transmitted reference range : 166 - 358 10*3/ ?L. The reference r madelin was not used to interpret this result as normal/abnormal . MPV (test code = 8.9 fL 9.5-12.9 L 24402-2) NRBC/100 WBC (test See_Comment [Automat ed code = 4783842909) message] The system which generated this result transmitted reference range : 0.0 - 10.0 /100 WBCs. The refer ence range was not u sed to interpret th is result as normal/abnormal . NRBC x10^3 (test code <0.01 See_Comment [Auto mated = 9707802266) message] The s ystem which generated this result transmitted reference range : 10*3/?L. The reference range was not used to interpret this result as normal/abnormal . GRAN MAT (NEUT) % 43.5 % (test code = 770-8) IMM GRAN % (test code 0.50 % = 2051644585) LYMPH % (test code = 36.9 % 736-9) MONO % (test code = 11.5 % 5905-5) EOS % (test code = 6.5 % 713-8) BASO % (test code = 1.1 % 706-2) GRAN MAT x10^3(ANC) 2.80 10*3/uL 1.88-7.09 (test code = 8883415670) IMM GRAN x10^3 (test 0.03 10*3/uL 0-0.06 code = 5143705518) LYMPH x10^3 (test code 2.37 10*3/uL 1.32-3.29 = 731-0) MONO x10^3 (test code 0.74 10*3/uL 0.33-0.92 = 742-7) EOS x10^3 (test code = 0.42 10*3/uL 0.03-0.39 H 711-2) BASO x10^3 (test code 0.07 10*3/uL 0.01-0.07 = 704-7) Lab Interpretation Abnormal (test code = 33907-0) [facility] Metabolic Panel (NA, K, CL, CO2, GLUCOSE, BUN, CREATININE, CA)2020-10-29 10:07:00 Test Item Value Reference Range Interpretation Comments NA (test code = 133 mmol/L 135-145 L 2584845913) K (test code = 4.3 mmol/L 3.5-5 7076295757) CL (test code = 102 mmol/L 98-108 2382847094) CO2 TOTAL (test code = 28 mmol/L 23-31 6232819380) AGAP (test code = 2-16 3685880664) BUN (test code = 3 mg/dL 7-23 L 9467468488) GLUCOSE (test code = 103 mg/dL 70-110 1242863191) CREATININE (test code = 0.62 mg/dL 0.5-1.04 3944740024) CALCIUM (test code = 8.4 mg/dL 8.6-10.6 L 4677289072) eGFR Calculation mL/min/1.73m2 (Non-) (test code = 7742636452) eGFR Calculation mL/min/1.73m2 () (test code = 5475282177) RAUDEL (test code = RAUDEL) Association of [...] tests). Lab Interpretation Abnormal (test code = 13834-8) [facility] [id number] 10:07:00 Test Item Value Reference Range Interpretation Comments MAGNESIUM (test code = 9177351714) 1.5 mg/dL 1.7-2.4 L Lab Interpretation (test code = Abnormal 72672-9) [facility]INE [id number] 13:44:00 Test Item Value Reference Range Interpretation Comments URINE CULTURE (test < 10,000 CFU/mL mixed code = 630-4) aerobic organisms - suggests endogenous microbial contamination [facility] HospitalPhosphorus Eilav4553-14-69 10:45:00 Test Item Value Reference Range Interpretation Comments PHOSPHORUS (test code = 6777109614) 3.4 mg/dL 2.5-5 Lab Interpretation (test code = Normal 19290-6) [facility] HospitalBasi Metabolic Panel (NA, K, CL, CO2, GLUCOSE, BUN, CREATININE, CA)2020-10-28 10:45:00 Test Item Value Reference Range Interpretation Comments NA (test code = 135 mmol/L 135-145 5660645000) K (test code = 4.0 mmol/L 3.5-5 7042997704) CL (test code = 101 mmol/L 98-108 6012887384) CO2 TOTAL (test code = 31 mmol/L 23-31 6896381503) AGAP (test code = 2-16 7995132373) BUN (test code = 4 mg/dL 7-23 L 1404181218) GLUCOSE (test code = 100 mg/dL 70-110 5997065638) CREATININE (test code = 0.70 mg/dL 0.5-1.04 8762584210) CALCIUM (test code = 8.3 mg/dL 8.6-10.6 L 0435419362) eGFR Calculation mL/min/1.73m2 (Non-) (test code = 9363657094) eGFR Calculation mL/min/1.73m2 () (test code = 9666857491) RAUDEL (test code = RAUDEL) Association of [...] tests). Lab Interpretation Abnormal (test code = 06519-8) [facility] HospitalMagnesium [id number] 10:45:00 Test Item Value Reference Range Interpretation Comments MAGNESIUM (test code = 6752173215) 1.8 mg/dL 1.7-2.4 Lab Interpretation (test code = Normal 69136-3) [facility] WITH [id number] 10:13:00 Test Item Value Reference Range Interpretation Comments WBC (test code = See_Comment [Automated 6690-2) message] The sy stem which generated this result transmitted reference range : 4.30 - 11.10 10*3/?L. The reference range was not used to interpret this result as normal/abnormal . RBC (test code = See_Comment L [Automated 289-8) message] The sy stem which generated this [...] RDW-SD (test code = 48.4 fL 39-49.9 45090-9) RDW-CV (test code = 13.8 % 12-15.5 788-0) PLT (test code = See_Comment H [Automated 777-3) message] The sy stem which generated this result transmitted reference range : 166 - 358 10*3/ ?L. The reference r madelin was not used to interpret this result as normal/abnormal . MPV (test code = 9.1 fL 9.5-12.9 L 97391-9) NRBC/100 WBC (test See_Comment [Automat ed code = 4523805341) message] The system which generated this result transmitted reference range : 0.0 - 10.0 /100 WBCs. The refer ence range was not u sed to interpret th is result as normal/abnormal . NRBC x10^3 (test code <0.01 See_Comment [Auto mated = 3785019689) message] The s ystem which generated this result transmitted reference range : 10*3/?L. The reference range was not used to interpret this result as normal/abnormal . GRAN MAT (NEUT) % 55.3 % (test code = 770-8) IMM GRAN % (test code 0.40 % = 4842357372) LYMPH % (test code = 29.4 % 736-9) MONO % (test code = 9.4 % 5905-5) EOS % (test code = 5.1 % 713-8) BASO % (test code = 0.4 % 706-2) GRAN MAT x10^3(ANC) 3.83 10*3/uL 1.88-7.09 (test code = 0286693953) IMM GRAN x10^3 (test 0.03 10*3/uL 0-0.06 code = 8210803016) LYMPH x10^3 (test code 2.04 10*3/uL 1.32-3.29 = 731-0) MONO x10^3 (test code 0.65 10*3/uL 0.33-0.92 = 742-7) EOS x10^3 (test code = 0.35 10*3/uL 0.03-0.39 711-2) BASO x10^3 (test code 0.03 10*3/uL 0.01-0.07 = 704-7) Lab Interpretation Abnormal (test code = 30359-4) [facility] [id number] 07:50:00 Test Item Value Reference Range Interpretation Comments MAGNESIUM (test code = 7742485240) 1.1 mg/dL 1.7-2.4 L Lab Interpretation (test code = Abnormal 47128-4) [facility]URINAL[facility]IS2020-12-13 07:50:00 Test Item Value Reference Range Interpretation Comments APPEARANCE (test code = Hazy Clear A 9803101863) COLOR (test code = Yellow Yellow 5473661117) PH (test code = 4.8-8.0 5994961209) SP GRAVITY (test code = 1.003-1.030 9132077171) GLU U QUAL (test code = Normal Normal 1553724503) BLOOD (test code = Negative Negative 6163519777) KETONES (test code = Negative Negative 0534057083) PROTEIN (test code = Negative Negative 2887-8) UROBILIN (test code = Normal Normal 9047177153) BILIRUBIN (test code = Negative Negative 1795829755) NITRITE (test code = Negative Negative 6553083712) LEUK CHELY (test code = 25/uL Negative A 3921774002) RBC/HPF (test code = See_Comment [Autom ated message] 6450794844) The system Sp[employer]ondate generated this result transmitted ref erence range: 0 - 3 HP F. The reference range was not used to int erpret this result as normal/abnormal . WBC/HPF (test code = See_Comment [Autom ated message] 6362631116) The system [employer] generated this result transmitted ref erence range: 0 - 5 HP F. The reference range was not used to int erpret this result as normal/abnormal . BACTERIA (test code = Negative Negative 8211668474) MUCOUS (test code = Slight Negative LPF A 2020218162) SQ EPITH (test code = See_Comment [Auto mated message] 1653737667) The system [employer] generated this result transmitted ref erence range: <=2 HPF. The reference range was not used to int erpret this result as normal/abnormal . Lab Interpretation (test Abnormal code = 02459-1) [facility] Metabolic Panel (NA, K, CL, CO2, GLUCOSE, BUN, CREATININE, CA)2020-10-27 07:45:00 Test Item Value Reference Range Interpretation Comments NA (test code = 135 mmol/L 135-145 7505274904) K (test code = 3.2 mmol/L 3.5-5 L 6312380825) CL (test code = 99 mmol/L 98-108 3869265501) CO2 TOTAL (test code = 35 mmol/L 23-31 H 9391911440) AGAP (test code = 2-16 L 5029183468) BUN (test code = 3 mg/dL 7-23 L 4576487665) GLUCOSE (test code = 104 mg/dL 70-110 8219557025) CREATININE (test code = 0.66 mg/dL 0.5-1.04 8975676017) CALCIUM (test code = 7.5 mg/dL 8.6-10.6 L 1473230653) eGFR Calculation mL/min/1.73m2 (Non-) (test code = 5919961434) eGFR Calculation mL/min/1.73m2 () (test code = 6683427135) RAUDEL (test code = RAUDEL) Association of [...] tests). Lab Interpretation Abnormal (test code = 83992-7) [facility] with Nahkgkdnlpua7336-21-70 07:24:00 Test Item Value Reference Range Interpretation [...] RDW-SD (test code = 46.6 fL 39-49.9 29915-2) RDW-CV (test code = 13.7 % 12-15.5 788-0) PLT (test code = See_Comment H [Automated 777-3) message] The sy stem which generated this result transmitted reference range : 166 - 358 10*3/ ?L. The reference r madelin was not used to interpret this result as normal/abnormal . MPV (test code = 9.1 fL 9.5-12.9 L 98967-1) NRBC/100 WBC (test See_Comment [Automat ed code = 6562087552) message] The system which generated this result transmitted reference range : 0.0 - 10.0 /100 WBCs. The refer ence range was not u sed to interpret th is result as normal/abnormal . NRBC x10^3 (test code <0.01 See_Comment [Auto mated = 0163724494) message] The s Certpoint Systemstem which generated this result transmitted reference range : 10*3/?L. The reference range was not used to interpret this result as normal/abnormal . GRAN MAT (NEUT) % 52.0 % (test code = 770-8) IMM GRAN % (test code 0.50 % = 2016744604) LYMPH % (test code = 34.7 % 736-9) MONO % (test code = 8.6 % 5905-5) EOS % (test code = 3.7 % 713-8) BASO % (test code = 0.5 % 706-2) GRAN MAT x10^3(ANC) 3.19 10*3/uL 1.88-7.09 (test code = 6542941807) IMM GRAN x10^3 (test 0.03 10*3/uL 0-0.06 code = 4826134617) LYMPH x10^3 (test code 2.13 10*3/uL 1.32-3.29 = 731-0) MONO x10^3 (test code 0.53 10*3/uL 0.33-0.92 = 742-7) EOS x10^3 (test code = 0.23 10*3/uL 0.03-0.39 711-2) BASO x10^3 (test code 0.03 10*3/uL 0.01-0.07 = 704-7) Lab Interpretation Abnormal (test code = 07835-7) [facility] MDOTTGGNYRAZBD9097-01-69 00:32:00COVID DMT InterpretationInterpretation/Recommendations: Molecular NAAT Tests for Active Infection with the SARS-CoV-2 Virus: This patient has a history of testing negative on multiple occasions for klpOPAM-AuW-1 virus that causes COVID-19 illness, with no [...] upon aggregate COVID-19 test results pooled from [facility]. They apply to the following tests offered at [facility] and assume the acceptable specimen type(s) were used: A. Tests for the Identification of SARS-CoV-2 RNA (Molecular NAAT Tests): ?- SARS-CoV-2 PCR assays including PantherAptima, [employer] Fusion, [employer] RealTime, and [employer] Xpert Xpress. ?- SARS-CoV-2 Rapid ID NOW by the ID NOW assay. ? B. Tests for the Identification of SARS-CoV-2 Antibodies: ?- Chemiluminescent immunoassays including Access SARS-CoV-2 IgM (DXI 600), VITROS Oodl-NONU-NlO-2 IgG (Vitros 5600and Vitros 3600), and Villarreal SARS-CoV-2 IgG (RUBBER COVERING MACHINE OPERATOR I System). These interpretations are autopopulated into [facility] based on computerized algorithms matching an interpretation code to the patient's setof test results, and a clinical pathologist evaluates the comments for accuracy. However, these comments do not consider testing a patient may have had outside of the [facility] system. If results for COVID-19 infection [...] fluid (BAL), tracheal aspirate, etc.). ? [facility] LABORATORY SERVICESCOVID FvlnizoUMAM-ArY-5 Rapid ID NOW (no units) ? ? Date ? Value ? 10/24/2020 ? Not Detected ? ? ? 2020 ? Not Detected ? ? ? 09/25/2020 ? Not Detected ? ? ? 09/10/2020 ? Not Detected ?? ? 09/04/2020 ? Not Detected ? ? ? 08/17/2020 ? Not Detected ? ? ? 07/23/2020 ? Not Detected ? [facility]OR[facility] SERVICESUnWhite Rock Medical CenterCBC with Differential 2020-10-26 11:58:00 Test [...] RDW-SD (test code = 47.2 fL 39-49.9 83631-3) RDW-CV (test code = 14.5 % 12-15.5 788-0) PLT (test code = See_Comment H [Automated 777-3) message] The sy stem which generated this result transmitted reference range : 166 - 358 10*3/ ?L. The reference r madelin was not used to interpret this result as normal/abnormal . MPV (test code = 10.1 fL 9.5-12.9 63936-9) NRBC/100 WBC (test See_Comment [Automat ed code = 4623417193) message] The system which generated this result transmitted reference range : 0.0 - 10.0 /100 WBCs. The refer ence range was not u sed to interpret th is result as normal/abnormal . NRBC x10^3 (test code <0.01 See_Comment [Auto mated = 3918300179) message] The s ystem which generated this result transmitted reference range : 10*3/?L. The reference range was not used to interpret this result as normal/abnormal . GRAN MAT (NEUT) % 50.3 % (test code = 770-8) IMM GRAN % (test code 0.50 % = 0719497001) LYMPH % (test code = 36.9 % 736-9) MONO % (test code = 7.6 % 5905-5) EOS % (test code = 4.2 % 713-8) BASO % (test code = 0.5 % 706-2) GRAN MAT x10^3(ANC) 2.76 10*3/uL 1.88-7.09 (test code = 5593659166) IMM GRAN x10^3 (test 0.03 10*3/uL 0-0.06 code = 6340402335) LYMPH x10^3 (test code 2.03 10*3/uL 1.32-3.29 = 731-0) MONO x10^3 (test code 0.42 10*3/uL 0.33-0.92 = 742-7) EOS x10^3 (test code = 0.23 10*3/uL 0.03-0.39 711-2) BASO x10^3 (test code 0.03 10*3/uL 0.01-0.07 = 704-7) Lab Interpretation Abnormal (test code = 27391-5) [facility] Shdwh5203-51-65 04:43:00 Test Item Value Reference Range Interpretation Comments MAGNESIUM (test code = 7500620525) 1.0 mg/dL 1.7-2.4 L Lab Interpretation (test code = Abnormal 26683-9) [facility] Metabolic Panel (NA, K, CL, CO2, GLUCOSE, BUN, CREATININE, CA)2020-10-26 04:43:00 Test Item Value Reference Range Interpretation Comments NA (test code = 136 mmol/L 135-145 3991620441) K (test code = 2.8 mmol/L 3.5-5 LL 6723965112) CL (test code = 97 mmol/L 98-108 L 3081065644) CO2 TOTAL (test code = 35 mmol/L 23-31 H 7126186433) AGAP (test code = 2-16 6777838340) BUN (test code = 3 mg/dL 7-23 L 9274880762) GLUCOSE (test code = 116 mg/dL 70-110 H 5883802375) CREATININE (test code = 0.81 mg/dL 0.5-1.04 5173372174) CALCIUM (test code = 7.2 mg/dL 8.6-10.6 L [id number]) eGFR Calculation mL/min/1.73m2 (Non-) (test code = 7283685665) eGFR Calculation mL/min/1.73m2 () (test code = 9088620352) RAUDEL (test code = RAUDEL) Association of [...] tests). Lab Interpretation Abnormal (test code = 88070-3) [id number] Test Item Value Reference Range Interpretation Comments PHOSPHORUS (test code = 1836388930) 3.0 mg/dL 2.5-5 Lab Interpretation (test code = Normal 59484-2) [facility] [id number] 04:11:00 Test Item Value Reference Range Interpretation Comments WBC (test code = See_Comment [Automated 4090-2) message] The sy stem which generated this result transmitted reference range : 4.30 - 11.10 10*3/?L. The reference range was not used to interpret this result as normal/abnormal . RBC (test code = See_Comment L [Automated 999-8) message] The sy stem which generated this [...] RDW-SD (test code = 45.6 fL 39-49.9 43625-3) RDW-CV (test code = 13.4 % 12-15.5 788-0) PLT (test code = See_Comment H [Automated 777-3) message] The sy stem which generated this result transmitted reference range : 166 - 358 10*3/ ?L. The reference r madelin was not used to interpret this result as normal/abnormal . MPV (test code = 9.2 fL 9.5-12.9 L 62940-4) NRBC/100 WBC (test See_Comment [Automat ed code = 0680359425) message] The system which generated this result transmitted reference range : 0.0 - 10.0 /100 WBCs. The refer ence range was not u sed to interpret th is result as normal/abnormal . NRBC x10^3 (test code <0.01 See_Comment [Auto mated = 1832528873) message] The s ystem which generated this result transmitted reference range : 10*3/?L. The reference range was not used to interpret this result as normal/abnormal . GRAN MAT (NEUT) % 55.9 % (test code = 770-8) IMM GRAN % (test code 0.40 % = 7393632848) LYMPH % (test code = 31.9 % 736-9) MONO % (test code = 8.4 % 5905-5) EOS % (test code = 3.1 % 713-8) BASO % (test code = 0.3 % 706-2) GRAN MAT x10^3(ANC) 3.80 10*3/uL 1.88-7.09 (test code = 8778102235) IMM GRAN x10^3 (test 0.03 10*3/uL 0-0.06 code = 6576672338) LYMPH x10^3 (test code 2.17 10*3/uL 1.32-3.29 = 731-0) MONO x10^3 (test code 0.57 10*3/uL 0.33-0.92 = 742-7) EOS x10^3 (test code = 0.21 10*3/uL 0.03-0.39 711-2) BASO x10^3 (test code <0.03 0.01-0.07 = 704-7) Lab Interpretation Abnormal (test code = 26339-5) [facility] [id number] 14:39:02 1. ?Postsurgical changes of recent ileostomy [...] TECHNIQUE AND FINDINGS: [facility] name, wassub[facility] for [...] [facility] [facility] [place] [place] labeled with the patients name, wassubmitted for [...] sclerotic bony lesions.Degenerative changes in the bilateral hips.IMPRESSION1.Postsurgical changes of recent ileostomy reversal surgery with [...] reviewed this study and agree with theabove report.[facility] ([facility] NOW RAPID TESTING)2020-10-25 01:48:00 Test Item Value Reference Range Interpretation Comments SARS-CoV-2 Rapid ID NOW Not Detected Not Detected (test code = 50787-5) RAUDEL (test code = RAUDEL) ID NOW COVID-19 Assay is an isothermal nucleic acid amplification test intended for the qualitative detection of nucleic acid from SARS-CoV-2 viral RNA in nasopharyngeal ([employer]) specimens. It is used under Emergency Use [...] acid from SARS-CoV-2 viral RNA in nasopharyngeal ([employer]GER) specimens. It is used under Emergency Use [...] indicated. Lab Interpretation Normal (test code = 36254-6) [facility] METABOLIC PANEL (NA, K, CL, CO2, GLUCOSE, BUN, CREATININE, CA)2020-10-24 23:16:00 Test Item Value Reference Range Interpretation Comments NA (test code = 137 mmol/L 135-145 1319953490) K (test code = 3.5 mmol/L 3.5-5 3827372532) CL (test code = 101 mmol/L 98-108 3412974425) CO2 TOTAL (test code = 31 mmol/L 23-31 9089799396) AGAP (test code = 2-16 8947500762) BUN (test code = 5 mg/dL 7-23 L 3741100742) GLUCOSE (test code = 80 mg/dL 70-110 9218870128) CREATININE (test code = 0.57 mg/dL 0.5-1.04 2368997933) CALCIUM (test code = 7.4 mg/dL 8.6-10.6 L 9578084576) eGFR Calculation mL/min/1.73m2 (Non-) (test code = 2001602010) eGFR Calculation mL/min/1.73m2 () (test code = 1850585896) RAUDEL (test code = RAUDEL) Association of [...] tests). Lab Interpretation Abnormal (test code = 25672-2) [facility] WITH [id number] 23:09:00 Test Item Value Reference Range Interpretation [...] RDW-SD (test code = 46.5 fL 39-49.9 76176-9) RDW-CV (test code = 13.4 % 12-15.5 788-0) PLT (test code = See_Comment H [Automated 777-3) message] The sy stem which generated this result transmitted reference range : 166 - 358 10*3/ ?L. The reference r madelin was not used to interpret this result as normal/abnormal . MPV (test code = 9.4 fL 9.5-12.9 L 96257-9) NRBC/100 WBC (test See_Comment [Automat ed code = 1813698575) message] The system which generated this result transmitted reference range : 0.0 - 10.0 /100 WBCs. The refer ence range was not u sed to interpret th is result as normal/abnormal . NRBC x10^3 (test code <0.01 See_Comment [Auto mated = 6758452390) message] The s ystem which generated this result transmitted reference range : 10*3/?L. The reference range was not used to interpret this result as normal/abnormal . GRAN MAT (NEUT) % 54.7 % (test code = 770-8) IMM GRAN % (test code 0.50 % = 8090914512) LYMPH % (test code = 35.9 % 736-9) MONO % (test code = 6.3 % 5905-5) EOS % (test code = 2.3 % 713-8) BASO % (test code = 0.3 % 706-2) GRAN MAT x10^3(ANC) 3.37 10*3/uL 1.88-7.09 (test code = 1046076781) IMM GRAN x10^3 (test 0.03 10*3/uL 0-0.06 code = 5280091261) LYMPH x10^3 (test code 2.21 10*3/uL 1.32-3.29 = 731-0) MONO x10^3 (test code 0.39 10*3/uL 0.33-0.92 = 742-7) EOS x10^3 (test code = 0.14 10*3/uL 0.03-0.39 711-2) BASO x10^3 (test code <0.03 0.01-0.07 = 704-7) Lab Interpretation Abnormal (test code = 56369-7) [facility] [id number] 17:18:00 Test Item Value Reference Range Interpretation Comments Clostridioides (Clostridium) Negative Negative difficile (test code = 85182-0) Lab Interpretation (test code = Normal 60488-5) [facility] (NA, K, CL, CO2, GLUCOSE, BUN, CREATININE, CA)2020-10-17 23:42:00 Test Item Value Reference Range Interpretation Comments NA (test code = 135 mmol/L 135-145 7403738987) K (test code = 4.0 mmol/L 3.5-5 0106015205) CL (test code = 105 mmol/L 98-108 1921979601) CO2 TOTAL (test code = 22 mmol/L 23-31 L 3913353228) AGAP (test code = 2-16 7342608968) BUN (test code = 8 mg/dL 7-23 1901065020) GLUCOSE (test code = 127 mg/dL 70-110 H 5406380163) CREATININE (test code = 0.96 mg/dL 0.5-1.04 7704744430) CALCIUM (test code = 8.7 mg/dL 8.6-10.6 4171802671) eGFR Calculation mL/min/1.73m2 (Non-) (test code = 8101509569) eGFR Calculation mL/min/1.73m2 () (test code = 1789758559) RAUDEL (test code = RAUDEL) Association of [...] tests). Lab Interpretation Abnormal (test code = 18157-8) [facility] [id number] 19:12:00 Test Item Value Reference Range Interpretation Comments Case Report (test code Surgical Pathology ? ? = 8572227689) ?Case: [id number] ? Authorizing Provider: ?Darren Chun MD ?Collected: ? 10/14/2020 0901 ?Ordering Location: ? ? [facility] OR ? Received: ?10/14/2020 1106 ? Department ? Pathologist: ? Marian Gr MD ? Specimens: ? A) - STOMA, Ileostomy ? B) - COLON, Ileocolic anastamosis ? Final Diagnosis (test m6pidYBcLRExp7wdUGSxbO code = 5170855977) FuZzEwMzNcZnRuYmpcdWMx TVqxsaVtLGmvc6JeY5YpIp AwMFxhbnNpXGRlZmxhbmcx EBQeIYW9nnMlIFGbLMbgRI LrTZidHf6iqXNemAbhOgXu DOByj1sohfHPptuiwLp0d9 wmKBNrWwA4jQNpPOymG4cw spTwsQBlVCHjNUk8mH16CY OzqO8juKIaKZubkkSaGpU5 GJfrYHLcCdY7YLStjICpGI BtG9mmNRAlAZrpIQPgZGdn dEPzNYW2xXlvi7K6tEMmsH GakArhVePzXgAzONKTt4Mv TEm3iUvzQ8ZzLLIwJiU9hP QgUGFyYWdyYXBoIEZvbnQ7 kI25DWpongB5gHEla3Frc9 2rn811mU0vmUWeWLS2EYUx CZJalAPnHVIlHEQ2WMUshM QcV9xwMSmnWV1qlgbuPSB2 MFxtYXJndDcyMFxtYXJnYj RlfVIhADWovOvqNXgkw058 GJF5QmHjKP8vW1Uwx9G8pP 9maXRcZGVmdGFiNzIwXGZv bi4twLKmJUyye3GeLRG9lb I4gGNujUMtMAFoNZ86Wvxy u4BwEfxeLMD9FEEcegEzh2 Hry0paXgQpqdJcM3aaG0Te ZHJoZWFkXHBnYnJkcmZvb3 Ysc4OpfUIeuUg5a1pgUBPr KMSieXwhr1lyQIY0RBQmS7 E5vYFpp6bvJOtxNKClmVC3 aeWfCFTcgKAnH3VpqS8gOS vsBD7ybbm0a5pgNdGfUT0p wgcqa9jaCRogZPIvZPY0Hh GcZRDtz0VaoeyhFyAne3Tr eCPsFNyfD54bw287SCEysz DbQ3oacMTlqnvdnEKficgj FVniwmP0PEPoEIBdSVxoKK YxXGZzMjBcbGFuZzEwMzNc aGljaFxmMVxkYmNoXGYxXG ocF2qtWjNtEtRlEGrbGQBu DT5bU07SS57mDLiTXH4FLA 3YYHOULL5NJMtgVWeRXOSQ V203FBTkuhZvPDJaIR9oQj DSXExUYCUVWQ2aBY4BCRgM FIISXEDRW9EGTGYFSQELSL AMM6QTCJNJWJNHUoqEK4HZ E67xBJ5AHGTTIwCDZ1UuBY PTC7fISqmqjAKoXMNsAWHf BOOtR10PE3wLVBHGMTTYWB TORVtGQA2QFL3SIMvdNCYq dVFkZJIaBBZWHF7NCVKBJQ MVD64JIKVrGH0RF5LWEX7J KYOwBGIYY4fPYR7NQollHU IgICAgICAtIEJFTklHTiBD U2sUCpKAGtLeHEaAYVzhBC cJR7XSDIhSHCxtD65WU2VS JQDSSYNPT5YAADmbT35GK0 pGYOCJTSUMRLHZYUvGTP6U R0uAL2grBLMkXBVlAQYhXC OSVkDWYT6PP2UQL7nvSMB9 h9pcyVRdFHOjrWHlCnAvBV KiFKYuj8hxUQDykXIcGzOu MzNcZnRuYmpcdWMxXGRlZm Vrp4ylw561nZRfb1zkVHOh GjU9sDWwVFLftUwzmby7sQ qbDzVhISAwy8zmwbRvIgHh ENFzTZBsEOXquYYnK155YH ZqUNgyd1wnv3WkDZEojLAh a5L6BSFOIQzgVoGdY805s3 ydn1afqwUxbII4WKBwNQP3 ITsgjnGwpoL1DKkzdGHzYt J6BHdkggBxJDcoexQyftXm Toh0NOZtB094HQB0lTjgj5 zlHJH2CIMmFJSzQofqCa8a mRHvW275JIEfTKHHCWZxfK x3HSOadsXabvAbjPVEi717 Z500d1iwSYWmqsMkcNzOak gpd8jyP393RIIyeKHontQk UhIcAMVpxDSfaZF2JSEyEI 9tbqzuOFitPCwfLBTtvmV8 JRTjgYUdT5QeQEMxXL8cbw pxEGA7JJfqDRLaILO3TvEw QWFfa8Gmfhz4ItTasm1wuv 82ZYL6h9VegEipMXX5XHR9 EbOuXe6ucSBhOZNyEU6lGt EloYJqACUurp45gMoaUOic taSmtG2xVcWfHCNbcOJxJB KqDX8gtWBySGFtoT6uygfr XHBnYnJkcmhlYWRccGdicm SmZm6xpDowSZV5IBpmG3hl aI8uVdQ3AHejU0hyxJ3pON l1SVrfhYZ9RDBfwH8uYX3f nxsqx1ixBFheGAzbEIWbhh U7pgT9UMUfpRKkA6KnoL4a VMIaNE3fxhlce4joFAD0IG vxBDFuPTF3BaWeXNUhp6Gl aqi5HzTss3OyoRTjUSzbZ2 5oa088KLKxrjRvM5besHNo lyfqgTIfhyovNWvlhpZ1KA FsXHBsYWluXGYxXGZzMjBc bGFuZzEwMzNcaGljaFxmMV baLxOiWMYpNGftS5llSvQp P8YoRLBtVzTldOZoRQqzaJ L4BRIsQFIro15ocDt3YNWe iddjb3OvFUJjqGEvyZLalP 2hybYnj2ozSPRwVKBvJRNk H5PqCBV5uISmHWCukRApoM J1EK2lcoLjYZ5tUVFmOfsm cmVzaWRlbnRzLCBmZWxsb3 cdAN4uYHYcsGvfbF5muOS5 IKSgt3buvCFusWXqx9icq8 UgbmFtZShzKSBtYXkgYXBw OLCqHV2lZUOnqAHdzoOkn3 V4GnofpWFvirjjPgpgfdD0 MPvokokeTBUmIFzuF9ckWf HyELSeeQmcJpojy1PvVCDa XGZzMjhccGFyfX0= Clinical Information Ileostomy care [Z43.2] (test code = 9793872724) Gross Description (test r6uwmNEdICJfpXYtPrLkPC code = 1824590858) XjHHFrv2dgWWLizQWbNmWe MzNcZnRuYmpcdWMxXGRlZm Msg1ixv853xWUtw6gvZFAy UcK9bZQwRXGvxLErL230HN HrSRmef4jzy7ZfXXKazYNg c5B2QROJqauykYq6tUpbO3 6dk1Y1KlaxF0ngYUOoVKLj Q4FdLE8xXICvIhq2QWC2UZ A3LSOyDLRuT9PxBF6qEUTi nXAnUDl8x0mgvSbkAGOkBM P1r3lvZKsowiJuSW8grp0l tSj6j0fonyAbTJSmWKUwyX ELQHJgF1PmiXrbAv7vgZq0 cBxfSotxBKD2Cmn4CT8shu 27ken5oElbKNTjsidgLuH6 XGpjFPLsysixNDr8LRxpUF GbpWZoXHUdgDYnW1NdCTzd DY4jygs6NxEdUR9ivyfoIZ jvRCTxJSY8QkLpQNLvv3Pq icpiTqBjgg6gsj80TKJ0z6 MjpBdsPVM9KBT6YsErWb4w uHKuJKQoXX5xOiBvfINsMI Ygzz22lThbLGpydqFypG1o AhOwYFAksPTuYHBlNG6fsC CrTVSdaW4waqvjWMKdLjNq qpzfDMBqoAnikxInQu1dbQ jgRDE7BVjuK7pexX2vGfT5 MJubF9hweN1jCWx4YYbfsC X4QKNmhV8bQI1blvrcm5ua BSB8DZkjZCCnukR9roWyKF OghTAqM8YjnS68ImEabEYy D7QhpN8vAMqgBSXndcx8Rl VlAp7kuBHcpSW8DNfaZubl YWdlXHBnbmNvbnRccGduZG VjXHBsYWluXHBsYWluXGYw CTVwCeYfrPcuqBokgN4rOw NaFyYsZFsaNP2qUVMyI7bm cRCfIUTdJJFrA3rcJqLqfK 9jaFxmMVxmczIwIFNwZWNp dFQzEOXlbwUeWYr3VRWyNz Jea1hafWCaIAzgIHT4fUZr gFC8gNNuxEipVT7dhKWaIA PULH33bVDbqhpwIgXcLmDg tDufk7XoFFFtlNMqs7QiyM brj4BgdIFzMSXjQYRhe58x rVW1bwYhSqKapyLyrFDsp4 TtvLribYZqSYFxj83rl5Qg O6veZK2vr1h0jQQlSKK4yx boF4EnuMywx6E7iXKwDAVg uS8lQDJeolHfJWMymMTyiT JxHDKqj9I8FACaG72nqmYq c1XeEq00LLcrENZiFPTbaW DvpdRcOH6dmOsqRN4hIIJv NiBjbSBkaWFtZXRlcikuIC ADtXBxe6NiMO81G39aPMLk wFY7hZNwy5WhkXGjnDDfFD SogcIxdOJlvMZeoH1hS9Uy nE79PD9zk8b6sIRfDAHurZ 6uwqyfIS9iCRViaWUutARb YINimL1zMRDzQfMpeKkcHM RnEBIdcFYbpEQejJAcT4da LZyaLRDezE90NPPaNZ4kPI OuCQWjqAEiyG2vppOsshDy jJGkGCKlydE6LLIkjU6eMQ VucmVtYXJrYWJsZSBpbnRl t9LaezZfJH33E19bXH8eSn YfciRhDQ27EUFopdDsVkZs gO12rPkup88np0VowLVxgP LzMLrsqOgqofBtGRD1lU1y dsVcedGtg8DrlQd9fHTsYK FzIEExXHBsYWluXGYwXGZz MjBcbGFuZzEwMzNcaGljaF kmKNynOqRwBKEnYIliC9hw OwMnJbVaMXc2CHJeQUOtNl m9YWLnWGqlLEPfSJQgSdUh bGFuZzEwMzNcaGljaFxmMV itFfMvMMRuEGsdR3hwUdRw WnIfZDZFTy1ntXKjUTPzum YKsAOeaT3greXHBFAeV1Dz dmVkIGZyZXNoIGxhYmVsZW Jze9c2nDG3uXSrvSY7fRJo rAwgVL3tiVDkBSEZRZ66zL JqjfwdTnSnCgUcrPnhs3Yy OFEsyYPvS28liVSyXF4fr1 XyxQ0vuHDkZLOuHZWxw05i zWE9bzOkNsOpbuZcmbNcF4 YvUBTim4IjqDTzzGUaYcEy agOqrC0zo6KnEKEtm9sdeR Z0uABsYM04kGGxmFfhASY3 RSOmEDSyFGHmmI6aSUv1Tl FttPAoQsUxmDTrStedK22u LbBoU5KlpClfQI8wimcqzv MsJYYlITZtlTSbe8FlDHMn DZPhimSshhO4stKspMXvr1 ZzhCZeI56hg58pUkThlnFa gCiyUBhmhNKmp4GvGJUuLX JgomDqDQ27YiOhFAxpRAtj sANyx2KpFZdwnyZcEVXwsH ekoDLxlMCxl2p5rY4vFAyc bHltcGhvaWQgaHlwZXJwbG CycNDwXYWdEIUbMZ8pWA2x UGZsuQPuj5UzoYS0tIQjQH PpE1Npn73zJINgSIOhrROu tAM2MXMsTKTbDeRqlRmjkA 2rZmNxRdHxQMhfCW5cVHIa I7ystUAvPSHiJGSvB2xtTf QzaO0xpQocAUmlukVtSFU3 CcOxRZigXWBbcVjnfJ0lVq NeQbIeEJysRW5hVPNxV0ws aUBkKKLrUDUaN2epNpKoiN 9jaFxmMVxmczIwIEIyLlxw YXJccGFyXHBhcmRccGxhaW 5cZjBcZnMyNFxwbGFpblxm MVxmczIwXGxhbmcxMDMzXG flX8tlGkPsZVKsuDsjHYwn h0ZxIBEmCPTdKnVoDSW4dH ZDaS42XBHhJXGbHDYbwPnt dK8weDN2QXMen9tirBWtcI lccGFyfQ== Embedded Images (test code = 8993027989) [facility]A Screen by Phill [id number] 21:21:00 Test Item Value Reference Range Interpretation Comments MSSA Screen by Phill BERMUDEZ (test code Negative Negative = 83653-0) MRSA/MSSA Positive? (test code = No No 1685762541) Lab Interpretation (test code = Normal 43775-7) [facility]inalysis[facility] 06:06:00 Test Item Value Reference Range Interpretation Comments APPEARANCE (test code = Cloudy Clear A 4148342562) COLOR (test code = Kathleen Yellow A 6518261438) PH (test code = 4.8-8.0 9848324754) SP GRAVITY (test code = 1.003-1.030 9367422966) GLU U QUAL (test code = Normal Normal 9917242335) BLOOD (test code = 1+ Negative A 6167002860) KETONES (test code = 5 mg/dL Negative A 9930819895) PROTEIN (test code = 100 mg/dL Negative A 2887-8) UROBILIN (test code = 2.0 mg/dL Normal A 3809145290) BILIRUBIN (test code = Negative Negative 4169569562) NITRITE (test code = Negative Negative 7241374653) LEUK CHELY (test code = Negative Negative 6139319715) RBC/HPF (test code = See_Comment H [Autom ated message] 4277181043) The system [employer] generated this result transmit carl reference range : 0 - 3 HPF. The refe rence range was not u sed to interpret th is result as normal/abnormal . WBC/HPF (test code = See_Comment [Autom ated message] 3636659766) The system [employer] generated this result transmit carl reference range : 0 - 5 HPF. The refe rence range was not u sed to interpret th is result as normal/abnormal . BACTERIA (test code = Moderate Negative A 0164442940) MUCOUS (test code = Marked Negative LPF A 3705931019) SQ EPITH (test code = HPF 0993586029) CA OXALATE (test code = See_Comment H [Au tomated message] 5485958492) The system [employer] generated this result transmit carl reference range : <=1 HPF. The refere nce range was not u sed to interpret th is result as normal/abnormal . HYAL CAST (test code = See_Comment H [Aut omated message] 7109614412) The system [employer] generated this result transmit carl reference range : <=2 LPF. The refere nce range was not u sed to interpret th is result as normal/abnormal . GRAN CASTS (test code = See_Comment H [Au tomated message] 4261296457) The system [employer] generated this result transmit carl reference range : <=1 LPF. The refere nce range was not u sed to interpret th is result as normal/abnormal . Lab Interpretation (test Abnormal code = 28733-5) [facility] (ALB, T.PRO, BILI T, BU/BC, ALT, AST, ALK PHOS)2020-10-02 05:46:00 Test Item Value Reference Range Interpretation Comments TOTAL BILI (test code = 5176436116) 1.0 mg/dL 0.1-1.1 BILI UNCON (test code = 4987263014) 0.6 mg/dL 0.1-1.1 BILI CONJ (test code = 8720381392) 0.0 mg/dL 0-0.3 T PROTEIN (test code = 1095544345) 9.9 g/dL 6.3-8.2 H ALBUMIN (test code = 5752628352) 5.4 g/dL 3.5-5 H ALK PHOS (test code = 8598104954) 153 U/L 34-122 H ALTv (test code = 1742-6) 62 U/L 5-35 H AST(SGOT) (test code = 5380071967) 51 U/L 13-40 H Lab Interpretation (test code = Abnormal 60841-0) [facility] HospitalLipase [id number] 05:46:00 Test Item Value Reference Range Interpretation Comments LIPASE (test code = 4906716563) 117 U/L 0-220 Lab Interpretation (test code = Normal 95674-3) [facility] (NA, K, CL, CO2, GLUCOSE, BUN, CREATININE, CA)2020-10-02 05:46:00 Test Item Value Reference Range Interpretation Comments NA (test code = 135 mmol/L 135-145 1004330969) K (test code = 4.4 mmol/L 3.5-5 6949376093) CL (test code = 102 mmol/L 98-108 4740464443) CO2 TOTAL (test code = 19 mmol/L 23-31 L 1746908766) AGAP (test code = 2-16 6661545126) BUN (test code = 19 mg/dL 7-23 9310015440) GLUCOSE (test code = 135 mg/dL 70-110 H 1830168680) CREATININE (test code = 1.19 mg/dL 0.5-1.04 H 0185412582) CALCIUM (test code = 11.3 mg/dL 8.6-10.6 H 4315932771) eGFR Calculation mL/min/1.73m2 (Non-) (test code = 1213578032) eGFR Calculation mL/min/1.73m2 () (test code = 3940413271) RAUDEL (test code = RAUDEL) Association of [...] tests). Lab Interpretation Abnormal (test code = 41530-3) [facility] with Vgdvkbvcyxtf0731-17-64 05:34:00 Test Item Value Reference Range Interpretation Comments WBC (test code = See_Comment [Automated 6577-2) message] The sy stem which generated this result transmitted reference range : 4.30 - 11.10 10*3/?L. The reference range was not used to interpret this result as normal/abnormal . RBC (test code = See_Comment [Automated 211-8) message] The sy stem which generated this [...] RDW-SD (test code = 40.6 fL 39-49.9 07441-5) RDW-CV (test code = 11.9 % 12-15.5 L 788-0) PLT (test code = See_Comment H [Automated 777-3) message] The sy stem which generated this result transmitted reference range : 166 - 358 10*3/ ?L. The reference r madelin was not used to interpret this result as normal/abnormal . MPV (test code = 9.9 fL 9.5-12.9 33914-0) NRBC/100 WBC (test See_Comment [Automat ed code = 9388220946) message] The system which generated this result transmitted reference range : 0.0 - 10.0 /100 WBCs. The refer ence range was not u sed to interpret th is result as normal/abnormal . NRBC x10^3 (test code <0.01 See_Comment [Auto mated = 4138819364) message] The s ystem which generated this result transmitted reference range : 10*3/?L. The reference range was not used to interpret this result as normal/abnormal . GRAN MAT (NEUT) % 38.8 % (test code = 770-8) IMM GRAN % (test code 0.20 % = 0288971164) LYMPH % (test code = 51.7 % 736-9) MONO % (test code = 7.4 % 5905-5) EOS % (test code = 0.9 % 713-8) BASO % (test code = 1.0 % 706-2) GRAN MAT x10^3(ANC) 2.27 10*3/uL 1.88-7.09 (test code = 7539897502) IMM GRAN x10^3 (test <0.03 0-0.06 code = 6626624053) LYMPH x10^3 (test code 3.02 10*3/uL 1.32-3.29 = 731-0) MONO x10^3 (test code 0.43 10*3/uL 0.33-0.92 = 742-7) EOS x10^3 (test code = 0.05 10*3/uL 0.03-0.39 711-2) BASO x10^3 (test code 0.06 10*3/uL 0.01-0.07 = 704-7) Lab Interpretation Abnormal (test code = 15839-6) [id number]00 Test Item Value Reference Range Interpretation Comments HCV by Real-Time Not Detected Not detected IU/mL PCR (test code = 2072790818) RAUDEL (test code = [facility] RealTime HCV RAUDEL) reverse deposition reporter-polymerase chain reaction(RT-PCR) assay is used. It is [...] 0 IU/mL,>100,000,000 IU/mL: >upper limit of quantification. [facility] ([id number][facility]2020-09-16 15:03:00 Test Item Value Reference Range Interpretation Comments NA (test code = 135 mmol/L 135-145 2385933982) K (test code = 4.4 mmol/L 3.5-5 3030187935) CL (test code = 111 mmol/L 98-108 H 4996209304) CO2 TOTAL (test code = 21 mmol/L 23-31 L 7183151173) AGAP (test code = 2-16 5450102913) BUN (test code = 11 mg/dL 7-23 3005785414) GLUCOSE (test code = 115 mg/dL 70-110 H 7220315030) CREATININE (test code = 0.83 mg/dL 0.5-1.04 8635673180) TOTAL BILI (test code = 0.5 mg/dL 0.1-1.0 2377441841) CALCIUM (test code = 8.3 mg/dL 8.6-10.6 L 4230248179) T PROTEIN (test code = 5.4 g/dL 6.3-8.2 L 5521613777) ALBUMIN (test code = 2.8 g/dL 3.5-5 L 5108266462) ALK PHOS (test code = 71 U/L 34-122 8178151874) ALTv (test code = 31 U/L 5-35 1742-6) AST(SGOT) (test code = 31 U/L 13-40 1169626829) eGFR Calculation mL/min/1.73m2 (Non-) (test code = 9115128777) eGFR Calculation mL/min/1.73m2 () (test code = 6480793733) RAUDEL (test code = RAUDEL) Association of [...] tests). Lab Interpretation Abnormal (test code = 80268-3) [facility] METABOLIC PANEL ([id number])2020-09-15 11:19:00 Test Item Value Reference Range Interpretation Comments NA (test code = 135 mmol/L 135-145 9153250947) K (test code = 3.9 mmol/L 3.5-5 5910581538) CL (test code = 104 mmol/L 98-108 8761767133) CO2 TOTAL (test code = 27 mmol/L 23-31 3739734886) AGAP (test code = 2-16 2698977078) BUN (test code = 15 mg/dL 7-23 8750872145) GLUCOSE (test code = 153 mg/dL 70-110 H 1418759105) CREATININE (test code = 0.91 mg/dL 0.5-1.04 5372648096) TOTAL BILI (test code = 0.4 mg/dL 0.1-1.4 5971288380) CALCIUM (test code = 9.2 mg/dL 8.6-10.6 7088790285) T PROTEIN (test code = 7.2 g/dL 6.3-8.2 0235363216) ALBUMIN (test code = 3.8 g/dL 3.5-5 8321365609) ALK PHOS (test code = 106 U/L 34-122 5820325056) ALTv (test code = 43 U/L 5-35 H 1742-6) AST(SGOT) (test code = 28 U/L 13-40 2980712717) eGFR Calculation mL/min/1.73m2 (Non-) (test code = 9009731725) eGFR Calculation mL/min/1.73m2 () (test code = 9184732211) RAUDEL (test code = RAUDEL) Association of [...] tests). Lab Interpretation Abnormal (test code = 09226-2) [facility][id number][facility] (ALB,T.PRO,BILI T,BU/BC,ALT,AST,ALK PHOS)2020-09-14 19:50:00 Test Item Value Reference Range Interpretation Comments TOTAL BILI (test code = 4086944329) 0.5 mg/dL 0.1-1.1 BILI UNCON (test code = 1809431315) 0.4 mg/dL 0.1-1.1 BILI CONJ (test code = 7514163906) 0.0 mg/dL 0-0.3 T PROTEIN (test code = 9756866376) 6.5 g/dL 6.3-8.2 ALBUMIN (test code = 0943637151) 3.4 g/dL 3.5-5 L ALK PHOS (test code = 1186303609) 95 U/L 34-122 ALTv (test code = 1742-6) 45 U/L 5-35 H AST(SGOT) (test code = 5968509621) 31 U/L 13-40 Lab Interpretation (test code = Abnormal 92814-5) [id number] 18:49:00 Test Item Value Reference Range Interpretation Comments CK (test code = 5449425281) 44 U/L 33-194 Lab Interpretation (test code = Normal 57316-4) [facility] (NA, K, CL, CO2, GLUCOSE, BUN, CREATININE, CA)2020-09-14 17:05:00 Test Item Value Reference Range Interpretation Comments NA (test code = 136 mmol/L 135-145 7119605785) K (test code = 3.9 mmol/L 3.5-5 7809846228) CL (test code = 104 mmol/L 98-108 3445575041) CO2 TOTAL (test code = 27 mmol/L 23-31 3794103871) AGAP (test code = 2-16 9133420624) BUN (test code = 17 mg/dL 7-23 5465739500) GLUCOSE (test code = 114 mg/dL 70-110 H 8563783864) CREATININE (test code = 0.84 mg/dL 0.5-1.04 6251747669) CALCIUM (test code = 8.9 mg/dL 8.6-10.6 2644396559) eGFR Calculation mL/min/1.73m2 (Non-) (test code = 8351582145) eGFR Calculation mL/min/1.73m2 () (test code = 6337049177) RAUDEL (test code = RAUDEL) Association of [...] tests). Lab Interpretation Abnormal (test code = 02977-5) [facility] [id number] 16:44:00 Test Item Value Reference Range Interpretation Comments HBsAB (test code = Negative 6301107152) HBsAb mIU/mL Semi-Quantitative (test code = 3543538322) RAUDEL (test code = Interpretation: RAUDEL) ?Hepatitis B Surface Antibody ? Negative - Patient is considered to be not immune to infection with HBV. ? ? Positive - Anti-HBs detected at greater than or equal to 12 mIU/mL. ?Patient is considered to be immune to infection with HBV. ? [facility] SURFACE [id number] 16:27:00 Test Item Value Reference Range Interpretation Comments HBsAg Semi-Quantitative (test code = Negative Negative 5195-3) [facility] 04:05:00 Test Item Value Reference Range Interpretation Comments MAGNESIUM (test code = 3535344736) 1.6 mg/dL 1.7-2.4 L Lab Interpretation (test code = Abnormal 84238-5) [facility] [id number] 20:02:00 Test Item Value Reference Range Interpretation Comments TROPONIN I (test <0.012 See_Comment [Automated code = 1165919950) message] The system which generated this result [...] ? Lab Interpretation Normal (test code = 46940-3) [facility] (71952)2020-09-13 17:43:00 Test Item Value Reference Range Interpretation Comments NA (test code = 139 mmol/L 135-145 2489702444) K (test code = 4.5 mmol/L 3.5-5 1881327562) CL (test code = 99 mmol/L 98-108 6017214187) CO2 TOTAL (test code = 31 mmol/L 23-31 9131606178) AGAP (test code = 2-16 5919712786) BUN (test code = 14 mg/dL 7-23 1742880449) GLUCOSE (test code = 115 mg/dL 70-110 H 8091847926) CREATININE (test code = 1.31 mg/dL 0.5-1.04 H 2820954991) TOTAL BILI (test code = 1.4 mg/dL 0.1-1.1 H 6432309549) CALCIUM (test code = 10.6 mg/dL 8.6-10.6 3376284708) T PROTEIN (test code = 9.1 g/dL 6.3-8.2 H 8628097937) ALBUMIN (test code = 4.7 g/dL 3.5-5 3462829212) ALK PHOS (test code = 160 U/L 34-122 H 8024357547) ALTv (test code = 84 U/L 5-35 H 1742-6) AST(SGOT) (test code = 51 U/L 13-40 H 4635515032) eGFR Calculation mL/min/1.73m2 (Non-) (test code = 8160471377) eGFR Calculation mL/min/1.73m2 () (test code = 6110268754) RAUDEL (test code = RAUDEL) Association of [...] tests). Lab Interpretation Abnormal (test code = 47933-1) [facility] Test Item Value Reference Range Interpretation Comments LIPASE (test code = 9434991234) 88 U/L 0-220 Lab Interpretation (test code = Normal 11177-1) [facility] [id number] 17:31:00 Test Item Value Reference Range Interpretation Comments WBC (test code = See_Comment [Automated 1390-2) message] The sy stem which generated this result transmitted reference range : 4.30 - 11.10 10*3/?L. The reference range was not used to interpret this result as normal/abnormal . RBC (test code = See_Comment [Automated 230-8) message] The sy stem which generated this [...] RDW-SD (test code = 44.9 fL 39-49.9 68083-5) RDW-CV (test code = 12.9 % 12-15.5 788-0) PLT (test code = See_Comment H [Automated 777-3) message] The sy stem which generated this result transmitted reference range : 166 - 358 10*3/ ?L. The reference r madelin was not used to interpret this result as normal/abnormal . MPV (test code = 9.7 fL 9.5-12.9 65528-4) NRBC/100 WBC (test See_Comment [Automat ed code = 4173570284) message] The system which generated this result transmitted reference range : 0.0 - 10.0 /100 WBCs. The refer ence range was not u sed to interpret th is result as normal/abnormal . NRBC x10^3 (test code <0.01 See_Comment [Auto mated = 3089212836) message] The s ystem which generated this result transmitted reference range : 10*3/?L. The reference range was not used to interpret this result as normal/abnormal . GRAN MAT (NEUT) % 80.0 % (test code = 770-8) IMM GRAN % (test code 0.50 % = 4357145899) LYMPH % (test code = 10.4 % 736-9) MONO % (test code = 7.1 % 5905-5) EOS % (test code = 1.5 % 713-8) BASO % (test code = 0.5 % 706-2) GRAN MAT x10^3(ANC) 7.11 10*3/uL 1.88-7.09 H (test code = 6248900303) IMM GRAN x10^3 (test 0.04 10*3/uL 0-0.06 code = 9071212233) LYMPH x10^3 (test code 0.92 10*3/uL 1.32-3.29 L = 731-0) MONO x10^3 (test code 0.63 10*3/uL 0.33-0.92 = 742-7) EOS x10^3 (test code = 0.13 10*3/uL 0.03-0.39 711-2) BASO x10^3 (test code 0.04 10*3/uL 0.01-0.07 = 704-7) Lab Interpretation Abnormal (test code = 67897-3) [facility] [id number] 17:08:57Overall, bowel gas pattern is felt to [...] pelvis.Ostomy appliance projects over the right lower quadrant.[facility] ([id number])2020-09-01 07:34:00 Test Item Value Reference Range Interpretation Comments NA (test code = 137 mmol/L 135-145 9031417149) K (test code = 3.6 mmol/L 3.5-5 5639964555) CL (test code = 100 mmol/L 98-108 4581041770) CO2 TOTAL (test code = 26 mmol/L 23-31 5702653863) AGAP (test code = 2-16 7036187733) BUN (test code = 19 mg/dL 7-23 1943084640) GLUCOSE (test code = 171 mg/dL 70-110 H 9310640172) CREATININE (test code = 0.98 mg/dL 0.5-1.04 1774294357) TOTAL BILI (test code = 0.8 mg/dL 0.1-1.4 4353423860) CALCIUM (test code = 10.4 mg/dL 8.6-10.6 0857803860) T PROTEIN (test code = 8.9 g/dL 6.3-8.2 H 8010833832) ALBUMIN (test code = 4.9 g/dL 3.5-5 8685795701) ALK PHOS (test code = 109 U/L 34-122 5920393976) ALTv (test code = 46 U/L 5-35 H 1742-6) AST(SGOT) (test code = 26 U/L 13-40 8316373107) eGFR Calculation mL/min/1.73m2 (Non-) (test code = 8977289876) eGFR Calculation mL/min/1.73m2 () (test code = 3264005694) RAUDEL (test code = RAUDEL) Association of [...] tests). Lab Interpretation Abnormal (test code = 70824-0) [facility] Test Item Value Reference Range Interpretation Comments LIPASE (test code = 8493891792) 103 U/L 0-220 Lab Interpretation (test code = Normal 64937-0) [facility] WITH [id number] 07:19:00 Test Item Value Reference Range Interpretation Comments WBC (test code = See_Comment [Automated 4844-2) message] The sy stem which generated this result transmitted reference range : 4.30 - 11.10 10*3/?L. The reference range was not used to interpret this result as normal/abnormal . RBC (test code = See_Comment [Automated 418-8) message] The sy stem which generated this [...] RDW-SD (test code = 40.4 fL 39-49.9 83181-5) RDW-CV (test code = 12.1 % 12-15.5 788-0) PLT (test code = See_Comment [Automated 777-3) message] The sy stem which generated this result transmitted reference range : 166 - 358 10*3/ ?L. The reference r madelin was not used to interpret this result as normal/abnormal . MPV (test code = 10.7 fL 9.5-12.9 65771-8) NRBC/100 WBC (test See_Comment [Automat ed code = 1872954645) message] The system which generated this result transmitted reference range : 0.0 - 10.0 /100 WBCs. The refer ence range was not u sed to interpret th is result as normal/abnormal . NRBC x10^3 (test code <0.01 See_Comment [Auto mated = 7210764093) message] The s ystem which generated this result transmitted reference range : 10*3/?L. The reference range was not used to interpret this result as normal/abnormal . GRAN MAT (NEUT) % 77.7 % (test code = 770-8) IMM GRAN % (test code 0.20 % = 6920937803) LYMPH % (test code = 18.3 % 736-9) MONO % (test code = 3.5 % 5905-5) EOS % (test code = 0.0 % 713-8) BASO % (test code = 0.3 % 706-2) GRAN MAT x10^3(ANC) 4.63 10*3/uL 1.88-7.09 (test code = 3667654699) IMM GRAN x10^3 (test <0.03 0-0.06 code = 3524013937) LYMPH x10^3 (test code 1.09 10*3/uL 1.32-3.29 L = 731-0) MONO x10^3 (test code 0.21 10*3/uL 0.33-0.92 L = 742-7) EOS x10^3 (test code = <0.03 0.03-0.39 L 711-2) BASO x10^3 (test code <0.03 0.01-0.07 = 704-7) Lab Interpretation Abnormal (test code = 23811-5) [facility] Test Item Value Reference Range Interpretation Comments LIPASE (test code = 4599538391) 171 U/L 0-220 Lab Interpretation (test code = Normal 78977-0) [facility] [id number] 02:25:00 Test Item Value Reference Range Interpretation Comments WBC (test code = See_Comment [Automated message] 6690-2) The system [employer] generated this result transmitted ref erence range: 4.30 - 1 1.10 10*3/?L. The re ference range was not u sed to interpret this result as normal/abnor mal. RBC (test code = See_Comment [Automated message] 519-8) The system [employer] generated this result transmitted ref erence range: [...] RDW-SD (test code 42.3 fL 39-49.9 = 16518-8) RDW-CV (test code 12.1 % 12-15.5 = 788-0) PLT (test code = See_Comment [Automated message] 407-3) The system [employer] generated this result transmitted ref erence range: 166 - 35 8 10*3/?L. The re ference range was not u sed to interpret this result as normal/abnor mal. MPV (test code = 11.0 fL 9.5-12.9 65711-4) NRBC/100 WBC (test See_Comment [Automat ed message] code = 1602928557) [employer] which generated this result transmitted ref erence range: 0.0 - 10 .0 /100 WBCs. The refer ence range was not u sed to interpret this result as normal/abnor mal. NRBC x10^3 (test <0.01 See_Comment [Automated message] code = 7664756785) The syste m which generated this result transmitted ref erence range: 10*3/?L. The reference range was not used to interpr et this result as normal/abnormal . GRAN MAT (NEUT) % 44.5 % (test code = 770-8) IMM GRAN % (test 0.20 % code = 8807735975) LYMPH % (test code 43.0 % = 736-9) MONO % (test code 9.5 % = 5905-5) EOS % (test code = 1.7 % 713-8) BASO % (test code 1.1 % = 706-2) GRAN MAT 2.35 10*3/uL 1.88-7.09 x10^3(ANC) (test code = 7417133046) IMM GRAN x10^3 <0.03 0-0.06 (test code = 1459959921) LYMPH x10^3 (test 2.27 10*3/uL 1.32-3.29 code = 731-0) MONO x10^3 (test 0.50 10*3/uL 0.33-0.92 code = 742-7) EOS x10^3 (test 0.09 10*3/uL 0.03-0.39 code = 711-2) BASO x10^3 (test 0.06 10*3/uL 0.01-0.07 code = 704-7) [facility] [id number] 03:50:29Addendum by Rhett Harden MD on 08/17/2020 11:01 PM* * * * * * * * ADDENDUM: * * * * * * * * The finding regarding left breast nodule was discussed with Dr MunozZiwrbpom03/3/2020 10:53 PM Preliminary Report Dictated by Resident: [...] mammography Preliminary Report Dictated by Resident: Gumaro Daimond I, Rhett Ivory MD., have reviewed this study and agree [...] the mesentery are thought to be react jane.VESSELS: Patent abdominal vasculature.GI TRACT: Postsurgical changes of [...] reviewed this study and agree with theabove report.[facility]ID TESTING) 2020-08-18 01:55:00 Test Item Value Reference Range Interpretation Comments SARS-CoV-2 Rapid ID NOW Not Detected Not Detected (test code = 67257-4) RAUDEL (test code = RAUDEL) ID NOW COVID-19 Assay is an isothermal nucleic acid amplification test intended for the qualitative detection of nucleic acid from SARS-CoV-2 viral RNA in nasopharyngeal ([employer]) specimens. It is used under Emergency Use [...] indicated. Lab Interpretation Normal (test code = 44098-8) [facility]. METABOLIC PANEL (58487)2020-08-18 01:47:00 Test Item Value Reference Range Interpretation Comments NA (test code = 135 mmol/L 135-145 3792349528) K (test code = 4.1 mmol/L 3.5-5 8007010420) CL (test code = 96 mmol/L 98-108 L 9491864845) CO2 TOTAL (test code = 30 mmol/L 23-31 3754853475) AGAP (test code = 2-16 1600798083) BUN (test code = 17 mg/dL 7-23 3387247802) GLUCOSE (test code = 149 mg/dL 70-110 H 0547656578) CREATININE (test code = 1.21 mg/dL 0.5-1.04 H 0907941228) TOTAL BILI (test code = 0.7 mg/dL 0.1-1.6 6607390875) CALCIUM (test code = 10.5 mg/dL 8.6-10.6 9117579219) T PROTEIN (test code = 8.6 g/dL 6.3-8.2 H 2359069250) ALBUMIN (test code = 4.4 g/dL 3.5-5 5292902240) ALK PHOS (test code = 170 U/L 34-122 H 6924191762) ALTv (test code = 145 U/L 5-35 H 1742-6) AST(SGOT) (test code = 70 U/L 13-40 H 6827567637) eGFR Calculation mL/min/1.73m2 (Non-) (test code = 6510794981) eGFR Calculation mL/min/1.73m2 () (test code = 6265729141) RAUDEL (test code = RAUDEL) Association of [...] tests). Lab Interpretation Abnormal (test code = 55441-1) [facility]00 Test Item Value Reference Range Interpretation Comments LIPASE (test code = 3827897681) 172 U/L 0-220 Lab Interpretation (test code = Normal 41904-2) [facility] [id number] 01:34:00 Test Item Value Reference Range Interpretation Comments WBC (test code = See_Comment [Automated 4111-2) message] The sy stem which generated this result transmitted reference range : 4.30 - 11.10 10*3/?L. The reference range was not used to interpret this result as normal/abnormal . RBC (test code = See_Comment [Automated 280-2) message] The sy stem which generated this [...] RDW-SD (test code = 41.1 fL 39-49.9 13749-7) RDW-CV (test code = 11.8 % 12-15.5 L 788-0) PLT (test code = See_Comment [Automated 777-3) message] The sy stem which generated this result transmitted reference range : 166 - 358 10*3/ ?L. The reference r madelin was not used to interpret this result as normal/abnormal . MPV (test code = 10.4 fL 9.5-12.9 41705-1) NRBC/100 WBC (test See_Comment [Automat ed code = 3769299109) message] The system which generated this result transmitted reference range : 0.0 - 10.0 /100 WBCs. The refer ence range was not u sed to interpret th is result as normal/abnormal . NRBC x10^3 (test code <0.01 See_Comment [Auto mated = 3553580163) message] The s ystem which generated this result transmitted reference range : 10*3/?L. The reference range was not used to interpret this result as normal/abnormal . GRAN MAT (NEUT) % 50.9 % (test code = 770-8) IMM GRAN % (test code 0.40 % = 1486134320) LYMPH % (test code = 35.9 % 736-9) MONO % (test code = 9.9 % 5905-5) EOS % (test code = 2.2 % 713-8) BASO % (test code = 0.7 % 706-2) GRAN MAT x10^3(ANC) 2.31 10*3/uL 1.88-7.09 (test code = 4955204637) IMM GRAN x10^3 (test <0.03 0-0.06 code = 7130739386) LYMPH x10^3 (test code 1.63 10*3/uL 1.32-3.29 = 731-0) MONO x10^3 (test code 0.45 10*3/uL 0.33-0.92 = 742-7) EOS x10^3 (test code = 0.10 10*3/uL 0.03-0.39 711-2) BASO x10^3 (test code 0.03 10*3/uL 0.01-0.07 = 704-7) Lab Interpretation Abnormal (test code = 70867-0) [facility] WITH [id number] 10:12:00 Test Item Value Reference Range Interpretation [...] RDW-SD (test code = 45.2 fL 39-49.9 06196-6) RDW-CV (test code = 12.9 % 12-15.5 788-0) PLT (test code = See_Comment H [Automated 777-3) message] The sy stem which generated this result transmitted reference range : 166 - 358 10*3/ ?L. The reference r madelin was not used to interpret this result as normal/abnormal . MPV (test code = 9.8 fL 9.5-12.9 88927-0) NRBC/100 WBC (test See_Comment [Automat ed code = 0410655909) message] The system which generated this result transmitted reference range : 0.0 - 10.0 /100 WBCs. The refer ence range was not u sed to interpret th is result as normal/abnormal . NRBC x10^3 (test code <0.01 See_Comment [Auto mated = 5375870678) message] The s ystem which generated this result transmitted reference range : 10*3/?L. The reference range was not used to interpret this result as normal/abnormal . GRAN MAT (NEUT) % 64.8 % (test code = 770-8) IMM GRAN % (test code 2.10 % = 6247750094) LYMPH % (test code = 21.9 % 736-9) MONO % (test code = 9.0 % 5905-5) EOS % (test code = 1.9 % 713-8) BASO % (test code = 0.3 % 706-2) GRAN MAT x10^3(ANC) 8.61 10*3/uL 1.88-7.09 H (test code = 1502440486) IMM GRAN x10^3 (test 0.28 10*3/uL 0-0.06 H code = 9692976144) LYMPH x10^3 (test code 2.91 10*3/uL 1.32-3.29 = 731-0) MONO x10^3 (test code 1.20 10*3/uL 0.33-0.92 H = 742-7) EOS x10^3 (test code = 0.25 10*3/uL 0.03-0.39 711-2) BASO x10^3 (test code 0.04 10*3/uL 0.01-0.07 = 704-7) REACT LYMPHS (test Rare code = 0079210235) Lab Interpretation Abnormal (test code = 08083-9) [facility] METABOLIC PANEL (NA, K, CL, CO2, GLUCOSE, BUN, CREATININE, CA)2020-08-01 09:46:00 Test Item Value Reference Range Interpretation Comments NA (test code = 137 mmol/L 135-145 7016648434) K (test code = 4.0 mmol/L 3.5-5 1806183290) CL (test code = 100 mmol/L 98-108 7426321214) CO2 TOTAL (test code = 30 mmol/L 23-31 8519135709) AGAP (test code = 2-16 0670554902) BUN (test code = 5 mg/dL 7-23 L 5208060333) GLUCOSE (test code = 139 mg/dL 70-110 H 1181513920) CREATININE (test code = 0.73 mg/dL 0.5-1.04 5901660033) CALCIUM (test code = 9.3 mg/dL 8.6-10.6 0600827779) eGFR Calculation mL/min/1.73m2 (Non-) (test code = 7249533137) eGFR Calculation mL/min/1.73m2 () (test code = 9722007246) RAUDEL (test code = RAUDEL) Association of [...] tests). Lab Interpretation Abnormal (test code = 82844-9) [facility] Test Item Value Reference Range Interpretation Comments MAGNESIUM (test code = 1339098621) 1.9 mg/dL 1.7-2.4 Lab Interpretation (test code = Normal 10156-0) [facility] 09:46:00 Test Item Value Reference Range Interpretation Comments PHOSPHORUS (test code = 7500646864) 3.0 mg/dL 2.5-5 Lab Interpretation (test code = Normal 69091-9) [facility] WITH [id number] 10:55:00 Test Item Value Reference Range Interpretation [...] RDW-SD (test code = 45.4 fL 39-49.9 82842-3) RDW-CV (test code = 12.8 % 12-15.5 788-0) PLT (test code = See_Comment H [Automated 777-3) message] The sy stem which generated this result transmitted reference range : 166 - 358 10*3/ ?L. The reference r madelin was not used to interpret this result as normal/abnormal . MPV (test code = 9.7 fL 9.5-12.9 72120-7) NRBC/100 WBC (test See_Comment [Automat ed code = 0895755179) message] The system which generated this result transmitted reference range : 0.0 - 10.0 /100 WBCs. The refer ence range was not u sed to interpret th is result as normal/abnormal . NRBC x10^3 (test code <0.01 See_Comment [Auto mated = 0781686587) message] The s ystem which generated this result transmitted reference range : 10*3/?L. The reference range was not used to interpret this result as normal/abnormal . GRAN MAT (NEUT) % 42.8 % (test code = 770-8) IMM GRAN % (test code 5.50 % = 8398085574) LYMPH % (test code = 36.7 % 736-9) MONO % (test code = 11.8 % 5905-5) EOS % (test code = 2.8 % 713-8) BASO % (test code = 0.4 % 706-2) GRAN MAT x10^3(ANC) 4.35 10*3/uL 1.88-7.09 (test code = 9520673153) IMM GRAN x10^3 (test 0.56 10*3/uL 0-0.06 H code = 4567222689) LYMPH x10^3 (test code 3.74 10*3/uL 1.32-3.29 H = 731-0) MONO x10^3 (test code 1.20 10*3/uL 0.33-0.92 H = 742-7) EOS x10^3 (test code = 0.29 10*3/uL 0.03-0.39 711-2) BASO x10^3 (test code 0.04 10*3/uL 0.01-0.07 = 704-7) REACT LYMPHS (test Rare code = 6303369613) Lab Interpretation Abnormal (test code = 34966-9) [facility] METABOLIC PANEL (NA, K, CL, CO2, GLUCOSE, BUN, CREATININE, CA)2020-07-31 10:50:00 Test Item Value Reference Range Interpretation Comments NA (test code = 135 mmol/L 135-145 8957731435) K (test code = 3.8 mmol/L 3.5-5 1374895379) CL (test code = 101 mmol/L 98-108 9247947716) CO2 TOTAL (test code = 27 mmol/L 23-31 4035527397) AGAP (test code = 2-16 2996888002) BUN (test code = 2 mg/dL 7-23 L 7526189662) GLUCOSE (test code = 132 mg/dL 70-110 H 9121813253) CREATININE (test code = 0.72 mg/dL 0.5-1.04 6691149020) CALCIUM (test code = 8.4 mg/dL 8.6-10.6 L 7090438595) eGFR Calculation mL/min/1.73m2 (Non-) (test code = 7369993443) eGFR Calculation mL/min/1.73m2 () (test code = 3080396956) RAUDEL (test code = RAUDEL) Association of [...] tests). Lab Interpretation Abnormal (test code = 28806-4) [facility] Test Item Value Reference Range Interpretation Comments MAGNESIUM (test code = 0018323988) 1.2 mg/dL 1.7-2.4 L Lab Interpretation (test code = Abnormal 82450-1) [facility] Test Item Value Reference Range Interpretation Comments PHOSPHORUS (test code = 9688273881) 3.8 mg/dL 2.5-5 Lab Interpretation (test code = Normal 24714-0) [facility] [id number] 15:48:00 Test Item Value Reference Range Interpretation Comments Case Report (test code Surgical Pathology ? ? = [id number]) ?Case: [id number] ? Authorizing Provider: ?Darren Chun MD ?Collected: ? 07/25/2020 1708 ?Ordering Location: ? ? [facility] OR ? Received: ?07/26/2020 0914 ? Department ? Pathologist: ? Deniz Joseph MD PHD ?Specimen: ? ?ABDOMEN, ILEOCECECTOMY ? Final Diagnosis (test x0dupJAgOWNoc7klRVIrdBA code = 0692202686) uZzEwMzNcZnRuYmpcdWMxIH gwwtJcMCvzb4XjL7FqAtZpU FxhbnNpXGRlZmxhbmcxMDMz OCJ4ziQpOOVpBQhzIGRtPLp oVp4cmQAjgTnjPvOwUHGux1 amfdPWbcpcgQg1t0efQIFjY aM5sJGuPKfdB0oxvlZrmUZi OQLkWGo3sV33QNGshP1ajQZ lNKlnpxRxOyD3AKkgADNoSq T7ZHJokGScUERaH4ftEVQrE IdbXXOqFPirkAWvZOS8aVit p9E1uODunUMizNylVxLsAgJ mELYSm9CcZWd6bZzpJ7NrPC FzNlD1tBGpCKWpETtrQGDfT SEevkP6eN65ZIkbxaQ8nEOe r4Viz26xy601yI9fxJVyQHS 7ZLVzLDJfpIPtARMdLAG6NP XifKJzW2jhWQoyZS7ywdikG IT4WHifOKZytUsfJUysZICb CuUeyUSbBXWmzFquNCamw68 2ZUT0JvCtPQ6mC2Alr4Y0vH 9maXRcZGVmdGFiNzIwXGZvc s0kjVLgGQlhc0GwHLV0lqO8 bRCxyTYqHVEzWH90Touim4H zGqghRAH6ENFpnvWer9Rnu7 dsGwZwgqAgE6opG8OwSEMeI SDuUHCxVnNvahEnn6Nkk6Rh lYBudIu4y1ysXCIgGRHxbXx ag1ylMRL5GZFdV8K9pKRll4 saISzfMWSafCU2bsNwHHJwj DPvH3JbbV1qMVxmGO5fhha4 a5frPmJxDO5rlybeu0oyIAy pSZHjJKG4HuGyPDBjv6Mikq psPlGkn3QjkSUhVXoaB92ad 127DLWidzMcG3dlnGGjmwsu aYMojtbzXTsffuN1BOBhFVQ sYWluXGYxXGZzMjBcbGFuZz EwMzNcaGljaFxmMVxkYmNoX AKlFWryL3tzIgNdZjLzULjk YIEbIT2oV39TGVkwOH7GVOC WLM5RUCWZUBTDHPSZFRXXMS WHA0HKISASYLMCR4OUPWAKM 61ZNpwgGSCyLCLkJO9xF7RP TUVOVEFMIFNNQUxMIElOVEV TVElORSAgSVNDSEVNSUMgTk TPOj4MCWQwV7vFWKSNSnSWH 25EAhEDPEaGXa1KHhXZHR0J LCBccGFyICAgICAgICBTRUN ARmDEIyzoJX1xIviSUx8LAX FiIGKSKMCXN65nPF0CYMOGU OlUCVUCP2LFTT7AE9CBUKNP UE5BWEskEWKcJXZqBS9cG2X ASDYHPCXOPs1DWzUDG08NZQ VKWN7CQZoLGMzrO6GZYHYQW 1NBTCBBTkQgVFJBTlNNVVJB LDSXSF1IJhELKZpEFNyoVYM uKJUxYQ4oVv9rSOREWHBLM5 YxS0BhLEYOTJBKNGMXV7mXL 1MgRElTRUFTRVxwYXIgICAg DO0pQ3ZQA1uIYRgcELGQX0l OUyBBUkUgVklBQkxFIFxwYX IjKHAoWY8aWp9tMSCFSBsUB V3THSFZRAZKXQbBZXTLHMOy ciAgICAgLSBBUFBFTkRJWCB ASQCOXURFFb0TRKZYMuOblC FyXHBhclxwbGFpblxmMVxmc bDoAAppegliRZLlCSpyD4xl GcPuEVAzmUzkLUljm3SvMPA qOJDiKbxijnTlRWtqRT07EZ 4fPPU7ARHMEAByRR5lSL4jI DIwIFxwbGFpblxmMVxmczIw NTyiiskfPFZwINdkK6hmPgV cOYSqnKpuHHhsq9QbMBHfFV ZzMjBccGFyfXtccnRmMVxzc 5ClC2PsFeOwOHssmyPrKDYi IcbmjfkvBBUzMDM2suZkYYD cPUciOIGlFLuxUf3mtCAmcW jtAcGzXEPwu5umqjDXBCiaS aCvY796DXHdQNgzx2ath4Iq DHDvzLTvo1Y9FITVscxfeLq 3s1aeZnEoDcM3fVHlRJrcD7 dfgxUxaENdE7XhrHBlxJx9j HumF93dy0P2UgbqD4ndGMFl BAWrP2YwYR5iQHWhCve1CLK 6ITH6NAFuLUUsT4OiLZ9hYA KpbUYfUNb1a6drvAcoZMSmO GQ0m6tdUFzachH4YS1xxj4j lDz1g1afqnZuSRWcPSJbfCZ JOUNzR0DooPhsTj0mhSc3oM bnJjsmBZU3Bmo5BO7zyh93v qy9kToxUCVlooiuQdM3CWkb BYLjfymySEs2WZdzDYGwxJJ 0IJSnyIBkL0JaGXOsXE2zzm q1IHQ6FWnlICZbBcT9ZFGki OOsPCJtjXunRMfhm832AGX6 HxLwIO7qI7Kpw3L9gE3fbJG jPWOvcDHjNkVeVLPiaz2ciT EkEGmjp7YtEDT8afC6qDEws PHzYPSvFW48Wtezs4GcDglg NKG5IQJrczJxx7Jxa7qiEdI cnaYbE7cqN7UoBQAqCCPsUV GxWgAhqzEps4Buv4IvyGIdv Jb8f3umGTUoGTCrzPpoh7yk FZL5SEHnD8O0eZFuf3ljKOn mCKFbeSH6qbW8ZROqaNMwE7 GfkB7dLGYoMY3ifrh2q4vfS AN5IKhrZVFhShR6fuI5MTBa eWJzIWMxoOwsVIlis888MYM 7CoPhMLYgf7YxO7TfcOgxV9 3csPloQ40bSTOydQkqxG3kx ItlpE6qXfDfRjXkXJsfjYiv bGFpblxmMVxmczIwXGxhbmc mEIYfRSizA7kdTvZnLGHeiW yqQRdqv9VcTRHaTPNkFlint zIwXHBhciBJIGhhdmUgcGVy s05fILgphPVqRMYwALmxWPB jmYpcn3JxZ5xqTH1dG5CatR ZeulDtmjWdZGxoYYDdj6q4a JAyfDxbg6ZybYHcAC79brGp JCIqQMY7NMUwh4iiNS65rww sFeGhvZ84xpIiqhJtMPTil9 tlU4lzbWSfi0Iyw9XbctZgK Eaie4FqKU5omBKhwwhccKZ9 GEIdbFMhsxEqtcQ8jZhxNAL alA6frE5vxZfkdO7eJsLrWu VtIFsdRT2kJHAxF4minDQrZ AKySWWxZ2ykQaRctI3wmCzw HfdoxlN6KJUyef36 Clinical Information Crohn's 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 code = colon with complication [id number]) [K50.119]SBO (small bowel obstruction) [K56.609] Gross Description g5ajnFNvEKOclZUbXfBbKJP (test code = kPWRsx1chQMYuvKWkGnVuPy [id number]) NcZnRuYmpcdWMxXGRlZmYwe 6mtr599zULam0edGQFyPzB8 zBAuVXGwiDGgK005BKEuCIj sx5zxd9ZxXKMcrQNoa4J0BW PUtcoowEt6aOecW37hf1D5G uidO4pjVWMnBATjD5ZhAI1k VMGxDkm2KJL8BUX1GPPmSJE gJ8DpKC3jTSVxsTNzGYn5b1 owyNguUACqYTQ1v8cxTGbpd eRuEA7wto4foVs4a4ttkrVs LXWtFTCzjNBCHRJgS0SnbMp vHc7hdNc8rPhbSovzYDN0Ej l5AY3wiz02gib6aYxnFUIrm jteXqE6RVytESJgawthDKl2 MYvmPTNgzKFcQSNlmKOnP1Y aEJmjZM5syqz4IeGiRX1xzc nxPCwtIXDrJIT2MoXdAVEud 9WuitszBvMhxp0zza92IQY4 r3PotZfgLPD9DGY9MiMeKh1 oxMNaGWFyAV9dAhBghPCwZB Yfnq45xJxxCZduszFpaR9tG kYyZNFwnKVmVLUgQB1csTSp JMBmsE2goiopAAXdIeDfgmo iLKJdlOauohHbTx0ykSmvKL D5QVjxK7labJ8nKpO0IXveL 9vcbC6kHXh5HNuarBC0KTZg iF4wRV5baptoi8bmYVO4SOm wGJTufkJ8hzHhJQMgfGGyN5 MssO17BeLlxNYbU2QluY3mG LarWZZuccq6JuSeFi5zpCQv dOK4OBxkDtyyTSklWFXwusK vbnRccGduZGVjXHBsYWluXH BsYWluXGYwXGZzMjRccWxcc EpjaI9aNeVaYtEjHQgiUC4l BXBiQ6yiuNObARSgBICdH6w uXwGkeN5liOpvFGywbcXdTH NwZWNpbWVuIEEgaXMgcmVjZ Ys2JFBxrJ3qSg3saFImcL3k eFChBBqlTWY2aLCqBPRtSPY zXEWwDW06Q6EnckZoIAjwEA qgwgNoZiQxWCNiOCLns37zw maouJrtd1AwH3DnlR1lnXZr BT1hCEFtakVvn9SeUQ7kGNI mk89ceEsbQt90GAmye1LhtH VudCAoNjYuOCBjbSBpbiBsZ Y9gnFnnzXYydCKeUVCvreDi GU7bkA3cDAAvf15rZg14ZS6 fBh6hLLBnEBC2lAMyYRQ8cA UijDNkDJZigWXgUSh4TPx4D dahM15leF6zdVHuK1VmSTbs ZJ14POChIZedEPKcJR1usTV yKSBhbmQgcHJveGltYWwgY2 YprJ2fZFQrXJAiMPMan8Dqa HPkpGGqPD6uyH5xiSIodHBd JFIbXPOnBTB8zuCfvvQ4VXH eVYKyGLTvCJ4sugOzUMgzDo DprtRwD0Xlw7GiiAFhjAqfu PYzTVMxfm37Y0jreAOpnMRm piTsYQ9spMxpb2w2aXJ4eMD mbSNxGOXzGPPosN5nQEJxz8 yyxIDpZIFpUSZtbTR6WIvcv RIqT5gvgd6uFTstYMFrOTSj hLEdAYknEU4dDU8kZOPvqvN zOE2ke6ZqjYMmsLAviTy4TJ FrVBCdmkWgsGYnPD4afsTfK YpuNkEnoG1vhkNiBCHmtnAf bnRzIHdpdGggYSBkYXJrLWJ of5scEJIjBNY8UJ5pJUSyhC Yrp8XqAOD3QMOcO2Jql4Kwq EO3tNtos64nd4HeKQ4dOYZf XN8hTLoqxaZjMBPhHS75rWD fwTkaXLUgw1FxqFRbrUWbQX LjdPrfv3uxHH1kFOTuLXWmN DAuMSBjbSBpbiBncmVhdGVz eSEhmI7wnpSsh88pREiuH7B 2GGUmFJZduKfzPETmb4OpnP LrmCS1oM8nNi8bjNQdNw7oZ RKyc48hXBOnZRDnxq9te1z3 SLvzUH82kRRxQEOsBHccCWS ccGFyIFRoZSBhcHBlbmRpeC XfTCKhIQ0mSYB5EVNcSVFpl CAdqK08LEKid6yyROUvN1cn VKFmJZSoPCXjSG5vpGmyCON sRQS7EWLaRkAqwIptQY6vJD UjhVVvFSXgokckg20ky8MzI TPnph0aTTL7qPKtLTQhGQQv RI9cBV29dTSqLg2nCDlrY61 lQ5PgzSduii5yXOvjIKYlfU ZnUXm9DQqeQEFjbvlfnEg2P POtZ3Nbx50sPTH6ccGdDXTk VIiixAKrIHoytD6nFF3hbYE yM4E7AEQ8rfQfV4HcGDbpxK ukBDAhhI2gddZazWVaaB4ax CBkaWFtZXRlciAwLjIgLSAw YqHeG90qYNKqkMetBOT2oBK vMDNzo7qnXYYuL6IfWJ7odL VyaWFsLiBXYWxsIHRoaWNrb sGbalYqMW7dKVSsVeRbgDIi QkZhQYVhOkIeT78oRZVdyMK kg7VhpPN5tPLrIMIeU8Oeb6 3sQHMaDWBnlAUpzTD4ACQbj G0aUVJhMYXnSvtkRFCdtHFs REGdS4Fzl79gJ38pCBzveHY bEMEgCGMhDmCuik79yF2euX ZppSO7zSJwAZLjnA1qRBWzS EAiP4ElxQZrWMFnDiZyxJT7 RDumP8FpFWnjwCPzI8yyQAW cCVPvQOUscwDqyBz0SMfiPY NgHUN8TBvkUJ6wLPWlmFD4S Zi6ABcwqpFeuwRtOP80BKCy hdEskXMxQBB9MlJtFTPjNLW kwkAvnWn6UEXdQKN1kX9vbp UkUjB4VGxuPNRwOLthX9z8J QPhe3Tdz0atKSSib7v1hFXs gZCsPZL2XNO9HsFrQVRvVCP jxgNylXv8BMMjJDB7xM9pur OtJeZ2UXkeGIAwoHGlaJK9W IHqq2RlnHLyaXeueQq4FHBm z77tgHBthNznWLupiY9uHLy dyLRpOPYrkqPDHFG1AEDeO9 Dwk65sDR7tIGPzjADtRXc5T ARpKKztO8p1QQFsJDRbBZ7i fXJgNQnyh1MiNygcPMJewC6 pNPPaDmo5REkoIHZauUCjc6 XhrZP4uCHeROTtj3JzNJCyU 4Dze73cTNTuLMForwWxcbMx JfhjLPU0GUJtsDdhCOZsgxg iWBRtVj6qUQ1bHNEcyEQwHX HXTDH3jEZrdwMiRFXlwiVZQ VHpCS88rjwqeoFIQTUdADK8 kE7bc3btm5UpFfMTz6Oyu9B hbnQpXHBhcn0= Embedded Images (test code = 3471225240) [facility] METABOLIC PANEL (NA, K, CL, CO2, GLUCOSE, BUN, CREATININE, CA)2020-07-30 11:29:00 Test Item Value Reference Range Interpretation Comments NA (test code = 136 mmol/L 135-145 2360522911) K (test code = 3.8 mmol/L 3.5-5 Slight 8265304182) hemolysis CL (test code = 102 mmol/L 98-108 2288549668) CO2 TOTAL (test code 25 mmol/L 23-31 = 2822933320) AGAP (test code = 2-16 6643322231) BUN (test code = 2 mg/dL 7-23 L Slight 4681846111) hemolysis GLUCOSE (test code = 182 mg/dL 70-110 H 0448263994) CREATININE (test code 0.68 mg/dL 0.5-1.04 = 8141532982) CALCIUM (test code = 9.0 mg/dL 8.6-10.6 7588809949) eGFR Calculation mL/min/1.73m2 (Non-) (test code = 4797255024) eGFR Calculation mL/min/1.73m2 () (test code = 6943315814) RAUDEL (test code = RAUDEL) Association of [...] tests). Lab Interpretation Abnormal (test code = 97864-0) [facility] Test Item Value Reference Range Interpretation Comments MAGNESIUM (test code = 9148819517) 1.4 mg/dL 1.7-2.4 L Lab Interpretation (test code = Abnormal 47793-6) [facility] 11:[facility]00 Test Item Value Reference Range Interpretation Comments PHOSPHORUS (test code = 0776634922) 3.6 mg/dL 2.5-5 Lab Interpretation (test code = Normal 99315-1) [facility] [id number] 14:01:19EXAM: XR KUB 07/29/2020 4:42 AM. INDICATION: [...] (no call needed tothe referring p aziza). Shahriar Caban MD., have reviewed this study and agree with theabove report.[facility],Radiant Results Inft User - 07/29/2020 9:02 [...] reviewed this study and agree with theabove report.[facility] (NA, K, CL, CO2, GLUCOSE, BUN, CREATININE, CA)2020-07-29 12:26:00 Test Item Value Reference Range Interpretation Comments NA (test code = 137 mmol/L 135-145 2231874424) K (test code = 3.4 mmol/L 3.5-5 L 5337135688) CL (test code = 102 mmol/L 98-108 4799554604) CO2 TOTAL (test code = 31 mmol/L 23-31 0222244443) AGAP (test code = 2-16 6373595807) BUN (test code = 3 mg/dL 7-23 L 5602311292) GLUCOSE (test code = 118 mg/dL 70-110 H 2063600491) CREATININE (test code = 0.81 mg/dL 0.5-1.04 9847060078) CALCIUM (test code = 9.4 mg/dL 8.6-10.6 7913209126) eGFR Calculation mL/min/1.73m2 (Non-) (test code = 5896508862) eGFR Calculation mL/min/1.73m2 () (test code = 9871979844) RAUDEL (test code = RAUDEL) Association of [...] tests). Lab Interpretation Abnormal (test code = 89929-1) [facility] 11:05:00 Test Item Value Reference Range Interpretation Comments Fibrinogen (test code = 1089 mg/dL 167-453 H 0185929882) Lab Interpretation (test code = Abnormal 49582-1) [facility] 10:58:00 Test Item Value Reference Range Interpretation Comments APTT Patient (test code = See_Comment [ Automated message] 3173-2) The system [employer] generated this result transmitted ref erence range: 26 - 36 Seconds. The re ference range was not u sed to interpret this result as normal/abnor mal. Lab Interpretation (test Normal code = 98226-4) [facility] / [id number] 10:58:00 Test Item Value Reference Range Interpretation Comments PROTIME PATIENT (test See_Comment [Auto mated message] code = 5964-2) The system [employer] generated this result transmitted ref erence range: 10.1 - 1 2.6 Seconds. The re ference range was not u sed to interpret this result as normal/abnor mal. INR (test code = 6301-6) Nor mal INR <1.1; Warfarin Therap eutic range 2.0 to 3. 0 or 2.5 to 3.5, dep ending upon the indica tions. Lab Interpretation (test Normal code = 24379-1) [facility] WITHOUT [id number] 10:54:00 Test Item Value Reference Range Interpretation Comments WBC (test code = 6690-2) See_Comment [A utomated message] The system [employer] generated this result transmit carl reference range : 4.30 - 11.10 10*3/?L. The reference range was not used to interpret this result as normal/abnormal . RBC (test code = 789-8) See_Comment L [Au tomated message] The system [employer] generated this result transmit carl reference range [...] 777-3) See_Comment [Au tomated message] The system [employer] generated this result transmit carl reference range : 166 - 358 10*3/?L. The reference range was not used to interpret this result as normal/abnormal . MPV (test code = 10.0 fL 9.5-12.9 65807-1) RDW-CV (test code = 12.0 % 12-15.5 788-0) RDW-SD (test code = 43.2 fL 39-49.9 69025-3) NRBC x10^3 (test code = <0.01 See_Comment [Au tomated message] 3313245293) The system [employer] generated this result transmit carl reference range : 10*3/?L. The reference range was not used to interpret this result as normal/abnormal . NRBC/100 WBC (test code See_Comment [Au tomated message] = 4163413152) The system [employer] generated this result transmit carl reference range : 0.0 - 10.0 /100 WBC s. The reference r madelin was not used to interpret this result as normal/abnormal . IPF % (test code = 3455878418) Lab Interpretation (test Abnormal code = 31147-2) [facility]BL[facility] [id number] 22:01:00 Test Item Value Reference Range Interpretation Comments Blood Culture-Aerobic No organisms No growth Previo us (test code = 20307-7) isolated prelim inary verified result was Culture [...] Culture-Anaerobic isolated preliminar y (test code = 01031-1) verifi ed result was Culture In Progress [...] CDT Lab Interpretation Normal (test code = 94047-8) [facility] [id number] 22:01:00 Test Item Value Reference Range Interpretation Comments Blood Culture-Aerobic No organisms No growth Previo us (test code = 60330-8) isolated prelim inary verified result was Culture [...] Culture-Anaerobic isolated preliminar y (test code = 99364-9) verifi ed result was Culture In Progress [...] CDT Lab Interpretation Normal (test code = 69054-5) [facility] (NA, K, CL, CO2, GLUCOSE, BUN, CREATININE, CA)2020-07-28 12:34:00 Test Item Value Reference Range Interpretation Comments NA (test code = 135 mmol/L 135-145 4270741495) K (test code = 3.6 mmol/L 3.5-5 6100586734) CL (test code = 105 mmol/L 98-108 0549143318) CO2 TOTAL (test code = 24 mmol/L 23-31 4396518665) AGAP (test code = 2-16 4941106352) BUN (test code = 3 mg/dL 7-23 L 2536947308) GLUCOSE (test code = 132 mg/dL 70-110 H 4230635838) CREATININE (test code = 0.68 mg/dL 0.5-1.04 9456200909) CALCIUM (test code = 8.6 mg/dL 8.6-10.6 8333783785) eGFR Calculation mL/min/1.73m2 (Non-) (test code = 0495988696) eGFR Calculation mL/min/1.73m2 () (test code = 3662193325) RAUDEL (test code = RAUDEL) Association of [...] tests). Lab Interpretation Abnormal (test code = 97426-3) [facility] WITHOUT [id number] 10:46:00 Test Item Value Reference Range Interpretation Comments WBC (test code = 6690-2) See_Comment [A utomated message] The system [employer] generated this result transmit carl reference range : 4.30 - 11.10 10*3/?L. The reference range was not used to interpret this result as normal/abnormal . RBC (test code = 789-8) See_Comment L [Au tomated message] The system [employer] generated this result transmit carl reference range [...] 777-3) See_Comment [Au tomated message] The system [employer] generated this result transmit carl reference range : 166 - 358 10*3/?L. The reference range was not used to interpret this result as normal/abnormal . MPV (test code = 10.0 fL 9.5-12.9 07209-4) RDW-CV (test code = 12.0 % 12-15.5 788-0) RDW-SD (test code = 42.5 fL 39-49.9 27924-5) NRBC x10^3 (test code = <0.01 See_Comment [Au tomated message] 9148602612) The system [employer] generated this result transmit carl reference range : 10*3/?L. The reference range was not used to interpret this result as normal/abnormal . NRBC/100 WBC (test code See_Comment [Au tomated message] = 4830372970) The system [employer] generated this result transmit carl reference range : 0.0 - 10.0 /100 WBC s. The reference r madelin was not used to interpret this result as normal/abnormal . IPF % (test code = 8816611708) Lab Interpretation (test Abnormal code = 37426-5) [facility] METABOLIC PANEL (NA, K, CL, CO2, GLUCOSE, BUN, CREATININE, CA)2020-07-27 11:40:00 Test Item Value Reference Range Interpretation Comments NA (test code = 134 mmol/L 135-145 L 1023097468) K (test code = 3.7 mmol/L 3.5-5 9082187647) CL (test code = 104 mmol/L 98-108 4445183101) CO2 TOTAL (test code = 29 mmol/L 23-31 6037532198) AGAP (test code = 2-16 L 1494065677) BUN (test code = 7 mg/dL 7-23 7973040025) GLUCOSE (test code = 169 mg/dL 70-110 H 1851575906) CREATININE (test code = 0.63 mg/dL 0.5-1.04 7116089993) CALCIUM (test code = 8.3 mg/dL 8.6-10.6 L 8592544066) eGFR Calculation mL/min/1.73m2 (Non-) (test code = 5593369057) eGFR Calculation mL/min/1.73m2 () (test code = 4739404205) RAUDEL (test code = RAUDEL) Association of [...] tests). Lab Interpretation Abnormal (test code = 49938-8) [facility] WITHOUT [id number] 11:18:00 Test Item Value Reference Range Interpretation Comments WBC (test code = 6690-2) See_Comment H [A utomated message] The system [employer] generated this result transmit carl reference range : 4.30 - 11.10 10*3/?L. The reference range was not used to interpret this result as normal/abnormal . RBC (test code = 789-8) See_Comment L [Au tomated message] The system [employer] generated this result transmit carl reference range [...] 777-3) See_Comment [Au tomated message] The system [employer] generated this result transmit carl reference range : 166 - 358 10*3/?L. The reference range was not used to interpret this result as normal/abnormal . MPV (test code = 10.8 fL 9.5-12.9 53489-9) RDW-CV (test code = 11.9 % 12-15.5 L 788-0) RDW-SD (test code = 43.5 fL 39-49.9 97000-2) NRBC x10^3 (test code = <0.01 See_Comment [Au tomated message] 8907952412) The system [employer] generated this result transmit carl reference range : 10*3/?L. The reference range was not used to interpret this result as normal/abnormal . NRBC/100 WBC (test code See_Comment [Au tomated message] = 0826874695) The system [employer] generated this result transmit carl reference range : 0.0 - 10.0 /100 WBC s. The reference r madelin was not used to interpret this result as normal/abnormal . IPF % (test code = 5474850214) Lab Interpretation (test Abnormal code = 28036-1) [facility] METABOLIC PANEL (NA, K, CL, CO2, GLUCOSE, BUN, CREATININE, CA)2020-07-26 09:39:00 Test Item Value Reference Range Interpretation Comments NA (test code = 136 mmol/L 135-145 7963824301) K (test code = 3.9 mmol/L 3.5-5 7123378052) CL (test code = 104 mmol/L 98-108 8389176032) CO2 TOTAL (test code = 28 mmol/L 23-31 6097923939) AGAP (test code = 2-16 4469200412) BUN (test code = 11 mg/dL 7-23 0388479563) GLUCOSE (test code = 136 mg/dL 70-110 H 3986309147) CREATININE (test code = 0.84 mg/dL 0.5-1.04 6495218965) CALCIUM (test code = 8.2 mg/dL 8.6-10.6 L 0044753914) eGFR Calculation mL/min/1.73m2 (Non-) (test code = 6930797952) eGFR Calculation mL/min/1.73m2 () (test code = 9822880149) RAUDEL (test code = RAUDEL) Association of [...] tests). Lab Interpretation Abnormal (test code = 29204-2) [facility] WITHOUT [id number] 08:44:00 Test Item Value Reference Range Interpretation Comments WBC (test code = 6690-2) See_Comment [A utomated message] The system [employer] generated this result transmit carl reference range : 4.30 - 11.10 10*3/?L. The reference range was not used to interpret this result as normal/abnormal . RBC (test code = 789-8) See_Comment L [Au tomated message] The system [employer] generated this result transmit carl reference range [...] See_Comment L [Au tomated message] The system [employer] generated this result transmit carl reference range : 166 - 358 10*3/?L. The reference range was not used to interpret this result as normal/abnormal . MPV (test code = 11.0 fL 9.5-12.9 76231-4) RDW-CV (test code = 11.8 % 12-15.5 L 788-0) RDW-SD (test code = 42.4 fL 39-49.9 14768-5) NRBC x10^3 (test code = <0.01 See_Comment [Au tomated message] 9442334659) The system [employer] generated this result transmit carl reference range : 10*3/?L. The reference range was not used to interpret this result as normal/abnormal . NRBC/100 WBC (test code See_Comment [Au tomated message] = 9743222944) The system [employer] generated this result transmit carl reference range : 0.0 - 10.0 /100 WBC s. The reference r madelin was not used to interpret this result as normal/abnormal . IPF % (test code = 0432364196) Lab Interpretation (test Abnormal code = 82897-5) [facility] METABOLIC PANEL (NA, K, CL, CO2, GLUCOSE, BUN, CREATININE, CA)2020-07-26 00:48:00 Test Item Value Reference Range Interpretation Comments NA (test code = 137 mmol/L 135-145 0547357457) K (test code = 4.5 mmol/L 3.5-5 9405316419) CL (test code = 102 mmol/L 98-108 9846406556) CO2 TOTAL (test code = 28 mmol/L 23-31 3400685988) AGAP (test code = 2-16 7294068106) BUN (test code = 13 mg/dL 7-23 5573352778) GLUCOSE (test code = 165 mg/dL 70-110 H 9364600295) CREATININE (test code = 0.92 mg/dL 0.5-1.04 7030925026) CALCIUM (test code = 8.5 mg/dL 8.6-10.6 L 2477620407) eGFR Calculation mL/min/1.73m2 (Non-) (test code = 8043727569) eGFR Calculation mL/min/1.73m2 () (test code = 0620529964) RAUDEL (test code = RAUDEL) Association of [...] tests). Lab Interpretation Abnormal (test code = 62009-1) [facility] 00:48:00 Test Item Value Reference Range Interpretation Comments MAGNESIUM (test code = 3555572311) 1.5 mg/dL 1.7-2.4 L Lab Interpretation (test code = Abnormal 97991-0) [facility] / [id number] 00:29:00 Test Item Value Reference Range Interpretation Comments PROTIME PATIENT (test See_Comment H [Auto mated message] code = 5964-2) The system [employer] generated this result transmitted ref erence range: 10.1 - 1 2.6 Seconds. The reference range was not used to int erpret this result as normal/abnormal . INR (test code = 6301-6) Nor mal INR <1.1; Warfarin Therap eutic range 2.0 to 3. 0 or 2.5 to 3.5, dep ending upon the indica tions. Lab Interpretation (test Abnormal code = 62687-5) [facility] 00:29:00 Test Item Value Reference Range Interpretation Comments APTT Patient (test code = See_Comment [ Automated message] 3173-2) The system [employer] generated this result transmitted ref erence range: 26 - 36 Seconds. The re ference range was not u sed to interpret this result as normal/abnor mal. Lab Interpretation (test Normal code = 01228-1) [facility] WITHOUT [id number] 00:24:00 Test Item Value Reference Range Interpretation Comments WBC (test code = 6690-2) See_Comment H [A utomated message] The system [employer] generated this result transmit carl reference range : 4.30 - 11.10 10*3/?L. The reference range was not used to interpret this result as normal/abnormal . RBC (test code = 789-8) See_Comment L [Au tomated message] The system [employer] generated this result transmit carl reference range [...] 777-3) See_Comment [Au tomated message] The system [employer] generated this result transmit carl reference range : 166 - 358 10*3/?L. The reference range was not used to interpret this result as normal/abnormal . MPV (test code = 10.8 fL 9.5-12.9 84125-1) RDW-CV (test code = 12.0 % 12-15.5 788-0) RDW-SD (test code = 44.0 fL 39-49.9 60354-2) NRBC x10^3 (test code = <0.01 See_Comment [Au tomated message] 1952288227) The system [employer] generated this result transmit carl reference range : 10*3/?L. The reference range was not used to interpret this result as normal/abnormal . NRBC/100 WBC (test code See_Comment [Au tomated message] = 6840350307) The system [employer] generated this result transmit carl reference range : 0.0 - 10.0 /100 WBC s. The reference r madelin was not used to interpret this result as normal/abnormal . IPF % (test code = 1583370243) Lab Interpretation (test Abnormal code = 93418-1) [facility] (NA, K, CL, CO2, GLUCOSE, BUN, CREATININE, CA)2020-07-25 12:05:00 Test Item Value Reference Range Interpretation Comments NA (test code = 137 mmol/L 135-145 5695171744) K (test code = 4.0 mmol/L 3.5-5 3851065970) CL (test code = 104 mmol/L 98-108 0850616033) CO2 TOTAL (test code = 28 mmol/L 23-31 2373066827) AGAP (test code = 2-16 8388240642) BUN (test code = 13 mg/dL 7-23 8670463949) GLUCOSE (test code = 207 mg/dL 70-110 H 9042192949) CREATININE (test code = 0.79 mg/dL 0.5-1.04 8235262816) CALCIUM (test code = 8.5 mg/dL 8.6-10.6 L 5788256246) eGFR Calculation mL/min/1.73m2 (Non-) (test code = 8919039487) eGFR Calculation mL/min/1.73m2 () (test code = 2402163173) RAUDEL (test code = RAUDEL) Association of [...] tests). Lab Interpretation Abnormal (test code = 84140-1) [facility] WITHOUT [id number] 12:02:00 Test Item Value Reference Range Interpretation Comments WBC (test code = 6690-2) See_Comment H [A utomated message] The system [employer] generated this result transmit carl reference range : 4.30 - 11.10 10*3/?L. The reference range was not used to interpret this result as normal/abnormal . RBC (test code = 789-8) See_Comment L [Au tomated message] The system [employer] generated this result transmit carl reference range [...] 777-3) See_Comment [Au tomated message] The system [employer] generated this result transmit carl reference range : 166 - 358 10*3/?L. The reference range was not used to interpret this result as normal/abnormal . MPV (test code = 10.9 fL 9.5-12.9 81696-8) RDW-CV (test code = 12.1 % 12-15.5 788-0) RDW-SD (test code = 43.3 fL 39-49.9 06592-7) NRBC x10^3 (test code = <0.01 See_Comment [Au tomated message] 1151303621) The system [employer] generated this result transmit carl reference range : 10*3/?L. The reference range was not used to interpret this result as normal/abnormal . NRBC/100 WBC (test code See_Comment [Au tomated message] = 8732771077) The system [facility] generated this result transmit carl reference range : 0.0 - 10.0 /100 WBC s. The reference r madelin was not used to interpret this result as normal/abnormal . IPF % (test code = 2718367848) Lab Interpretation (test Abnormal code = 17582-3) [facility]ABORH [id number] 08:01:35 Test Item Value Reference Range Interpretation Comments ABO & RH (test code A Positive Performe d at [facility] = 20) Laboratory Serv [facility] Blood [facility] [address] [facility] [address]Gskt Free: [phone] A No. [id number] [facility]Type and Screen - ONCE [id number] 05:04:45 Test Item Value Reference Range Interpretation Comments ABO & RH (test code A POSITIVE Performe d at [facility] = 20) Laboratory Serv [facility] s [address]Wkds Free: [phone] A No. [id number] IAT (test code = Negative Performed a t [facility] 1185) Laboratory Serv [facility] s [address]Hgfv Free: [phone] A No. [id number] [facility]OMEN 1 [id number] 13:39:15EXAM: XR ABDOMEN 1 VW 07/24/2020 1:46 [...] reviewed this study and agree with theabove report.[facility] (NA, K, CL, CO2, GLUCOSE, BUN, CREATININE, CA)2020-07-24 08:29:00 Test Item Value Reference Range Interpretation Comments NA (test code = 137 mmol/L 135-145 8111719687) K (test code = 4.1 mmol/L 3.5-5 Slight 4815800545) hemolysis CL (test code = 102 mmol/L 98-108 1186815072) CO2 TOTAL (test code 24 mmol/L 23-31 = 2180336934) AGAP (test code = 2-16 8266949539) BUN (test code = 19 mg/dL 7-23 Slight 6374001939) hemolysis GLUCOSE (test code = 170 mg/dL 70-110 H 9855448386) CREATININE (test code 0.93 mg/dL 0.5-1.04 = 2861461744) CALCIUM (test code = 8.9 mg/dL 8.6-10.6 2497675883) eGFR Calculation mL/min/1.73m2 (Non-) (test code = 4072058649) eGFR Calculation mL/min/1.73m2 () (test code = 5189454809) RAUDEL (test code = RAUDEL) Association of [...] tests). Lab Interpretation Abnormal (test code = 32516-4) [facility] WITHOUT [id number] 08:27:00 Test Item Value Reference Range Interpretation Comments WBC (test code = See_Comment H [Automated message] 6690-2) The system [employer] generated this result transmitted ref erence range: 4.30 - 1 1.10 10*3/?L. The reference range was not used to int erpret this result as normal/abnormal . RBC (test code = 789-8) See_Comment [Au tomated message] The system [employer] generated this result transmitted ref erence range: [...] 777-3) See_Comment [Au tomated message] The system [employer] generated this result transmitted ref erence range: 166 - 35 8 10*3/?L. The reference range was not used to int erpret this result as normal/abnormal . MPV (test code = 11.0 fL 9.5-12.9 67959-5) RDW-CV (test code = 12.0 % 12-15.5 788-0) RDW-SD (test code = 41.5 fL 39-49.9 90199-2) NRBC x10^3 (test code = <0.01 See_Comment [Au tomated message] 1607771557) The system [employer] generated this result transmitted ref erence range: 10*3/?L. The reference range was not used to int erpret this result as normal/abnormal . NRBC/100 WBC (test code See_Comment [Au tomated message] = 2514278117) The system [employer] generated this result transmitted ref erence range: 0.0 - 10 .0 /100 WBCs. The reference range was not used to int erpret this result as normal/abnormal . IPF % (test code = 5.7 % 1.3-7.7 Platelet count 6086028245) measured by fluorescence me thod. Lab Interpretation Abnormal (test code = 89537-7) [facility] NOW RAPID TESTING)2020-07-24 01:08:00 Test Item Value Reference Range Interpretation Comments SARS-CoV-2 Rapid ID NOW Not Detected Not Detected (test code = 69402-7) RAUDEL (test code = RAUDEL) ID NOW COVID-19 Assay is an isothermal nucleic acid amplification test intended for the qualitative detection of nucleic acid from SARS-CoV-2 viral RNA in nasopharyngeal ([employer]) specimens. It is used under Emergency Use [...] indicated. Lab Interpretation Normal (test code = 74572-7) [facility] HospitalLactic Acid Whole [id number] 00:34:00 Test Item Value Reference Range Interpretation Comments LACTIC ACID (test code = 3.03 mmol/L 6005559538) [facility] HospitalL[facility] Acid Whole [id number] 21:59:00 Test Item Value Reference Range Interpretation Comments LACTIC ACID (test code = 2.30 mmol/L 7451721394) [facility] HospitalCT [facility] PEL[facility] W [id number] 21:22:06CT Abdomen and Pelvis with intravenous contrast. [...] however, findings are not suggestive ofacute appendicitis.[facility] Metabolic Panel (NA, K, CL, CO2, GLUCOSE, BUN, CREATININE, CA)2020-07-23 20:11:00 Test Item Value Reference Range Interpretation Comments NA (test code = 137 mmol/L 135-145 8444896758) K (test code = 3.3 mmol/L 3.5-5 L 8703167505) CL (test code = 97 mmol/L 98-108 L 3146955994) CO2 TOTAL (test code = 25 mmol/L 23-31 8436494417) AGAP (test code = 2-16 5745662262) BUN (test code = 18 mg/dL 7-23 9217806819) GLUCOSE (test code = 236 mg/dL 70-110 H 6784252112) CREATININE (test code = 0.94 mg/dL 0.5-1.04 4339264575) CALCIUM (test code = 10.4 mg/dL 8.6-10.6 6578918211) eGFR Calculation mL/min/1.73m2 (Non-) (test code = 0534106127) eGFR Calculation mL/min/1.73m2 () (test code = 7475621094) RAUDEL (test code = RAUDEL) Association of [...] tests). Lab Interpretation Abnormal (test code = 36549-9) [facility] (ALB, T.PRO, BILI T, BU/BC, ALT, AST, ALK PHOS)2020-07-23 20:11:00 Test Item Value Reference Range Interpretation Comments TOTAL BILI (test code = 9152405640) 1.0 mg/dL 0.1-1.1 BILI UNCON (test code = 5261564077) 1.0 mg/dL 0.1-1.1 BILI CONJ (test code = 5991639148) 0.0 mg/dL 0-0.3 T PROTEIN (test code = 7941834127) 8.9 g/dL 6.3-8.2 H ALBUMIN (test code = 1763191393) 4.7 g/dL 3.5-5 ALK PHOS (test code = 1746499811) 77 U/L 34-122 ALTv (test code = 1742-6) 19 U/L 5-35 AST(SGOT) (test code = 2408175361) 24 U/L 13-40 Lab Interpretation (test code = Abnormal 22430-0) [facility] [id number] 20:11:00 Test Item Value Reference Range Interpretation Comments LIPASE (test code = 2677019668) 26 U/L 0-220 Lab Interpretation (test code = Normal 40972-9) [facility] with [id number] 19:48:00 Test Item Value Reference Range Interpretation Comments WBC (test code = See_Comment H [Automated 9390-2) message] The system which generated this result transmit carl reference range : 4.30 - 11.10 10*3/?L. The reference range was not used to interpret this result as normal/abnormal . RBC (test code = See_Comment H [Automated 109-8) message] The system which generated this result [...] RDW-SD (test code = 39.7 fL 39-49.9 72685-9) RDW-CV (test code = 11.5 % 12-15.5 L 788-0) PLT (test code = See_Comment [Automated 777-3) message] The system which generated this result transmit carl reference range : 166 - 358 10*3/ ?L. The reference range was not u sed to interpret th is result as normal/abnormal . MPV (test code = 10.4 fL 9.5-12.9 91312-0) NRBC/100 WBC (test See_Comment [Automat ed code = 4962943371) message] The system which generated this result transmit carl reference range : 0.0 - 10.0 /100 WBCs. The reference range was not used to interpret this result as normal/abnormal . NRBC x10^3 (test code <0.01 See_Comment [Auto mated = 1950274890) message] The system which generated this result transmit carl reference range : 10*3/?L. The reference range was not used to interpret this result as normal/abnormal . GRAN MAT (NEUT) % 90.3 % (test code = 770-8) IMM GRAN % (test code 0.50 % = 6710685669) LYMPH % (test code = 5.4 % 736-9) MONO % (test code = 3.7 % 5905-5) EOS % (test code = 0.0 % 713-8) BASO % (test code = 0.1 % 706-2) GRAN MAT x10^3(ANC) 12.67 10*3/uL 1.88-7.09 H (test code = 9507792652) IMM GRAN x10^3 (test 0.07 10*3/uL 0-0.06 H code = 8301043850) LYMPH x10^3 (test code 0.76 10*3/uL 1.32-3.29 L = 731-0) MONO x10^3 (test code 0.52 10*3/uL 0.33-0.92 = 742-7) EOS x10^3 (test code = <0.03 0.03-0.39 L 711-2) BASO x10^3 (test code <0.03 0.01-0.07 = 704-7) Lab Interpretation Abnormal (test code = 22247-9) [facility] 19:37:00 Test Item Value Reference Range Interpretation Comments APPEARANCE (test code = Hazy Clear A 9606033765) COLOR (test code = Kathleen Yellow A 0575746502) PH (test code = 4.8-8.0 0297631598) SP GRAVITY (test code = 1.003-1.030 H 4379855072) GLU U QUAL (test code = 50 mg/dL Normal A 9467717815) BLOOD (test code = Negative Negative 8085700979) KETONES (test code = 80 mg/dL Negative A 3196067504) PROTEIN (test code = 100 mg/dL Negative A 2887-8) UROBILIN (test code = Normal Normal 9677334335) BILIRUBIN (test code = Negative Negative 7219514563) NITRITE (test code = Negative Negative 8644964677) LEUK CHELY (test code = Negative Negative 5466691032) RBC/HPF (test code = See_Comment [Autom ated message] 4432419380) The system [employer] generated this result transmit carl reference range : 0 - 3 HPF. The refe rence range was not u sed to interpret th is result as normal/abnormal . WBC/HPF (test code = See_Comment [Autom ated message] 2847441612) The system [employer] generated this result transmit carl reference range : 0 - 5 HPF. The refe rence range was not u sed to interpret th is result as normal/abnormal . BACTERIA (test code = Few Negative A 4031584304) MUCOUS (test code = Marked Negative LPF A 0080601116) SQ EPITH (test code = HPF 7557487636) Lab Interpretation (test Abnormal code = 23529-1) [facility] W [id number] 18:53:08CT Abdomen and Pelvis with intravenous contrast. [...] is made with 01/04/2018 CT studies.Lower lungs: Cl ear. No pleural effusion or pericardial effusion.Liver, Gallbladder [...] Normal appendix is visualized. Small bowel gaspattern isunremarkable.Bladder and Reproductive Organs: S/P hysterectomy. Normal urinary bladder.Bones: Bilateral hip joint arthritis. No aggressive bone lesions. Nocompression deformity in the lower thoracic orlumbar vertebral bodies.Soft tissues: Unremarkable.CONCLUSION: No acute intra-abdominal or intrapelvic pathology detected.[facility] Metabolic Panel (NA, K, CL, CO2, GLUCOSE, BUN, CREATININE, CA)2019-06-15 18:17:00 Test Item Value Reference Range Interpretation Comments NA (test code = 140 mmol/L 135-145 1255819277) K (test code = 3.5 mmol/L 3.5-5 0758597573) CL (test code = 105 mmol/L 98-108 1489595621) CO2 TOTAL (test code = 25 mmol/L 23-31 6686121320) AGAP (test code = 2-16 7333346546) BUN (test code = 10 mg/dL 7-23 6102929690) GLUCOSE (test code = 162 mg/dL 70-110 H 6875312589) CREATININE (test code = 0.81 mg/dL 0.5-1.04 6233173022) CALCIUM (test code = 8.7 mg/dL 8.6-10.6 7417226569) eGFR Calculation mL/min/1.73m2 (Non-) (test code = 0600677409) eGFR Calculation mL/min/1.73m2 () (test code = 4098913847) RAUDEL (test code = RAUDEL) Association of [...] tests). Lab Interpretation Abnormal (test code = 78477-6) [facility] (ALB, T.PRO, BILI T, BU/BC, ALT, AST, ALK PHOS)2019-06-15 18:17:00 Test Item Value Reference Range Interpretation Comments TOTAL BILI (test code = 6699731311) 0.7 mg/dL 0.1-1.1 BILI UNCON (test code = 3992567129) 0.6 mg/dL 0.1-1.1 BILI CONJ (test code = 2841559163) 0.0 mg/dL 0-0.3 T PROTEIN (test code = 1679287155) 7.7 g/dL 6.3-8.2 ALBUMIN (test code = 0132080478) 4.2 g/dL 3.5-5 ALK PHOS (test code = 0537009314) 59 U/L 34-122 ALT(SGPT) (test code = 7515128463) 16 U/L 9-51 AST(SGOT) (test code = 2991107866) 20 U/L 13-40 Lab Interpretation (test code = Normal 70372-0) [facility] [id number] 18:17:00 Test Item Value Reference Range Interpretation Comments LIPASE (test code = 4675868543) 48 U/L 0-220 Lab Interpretation (test code = Normal 27882-4) [facility]2019-08-01 18:06:00 Test Item Value Reference Range Interpretation Comments APPEARANCE (test code Slightly Hazy Clear A = 2337894791) COLOR (test code = Yellow Yellow 1391365925) PH (test code = 4.8-8.0 3890429383) SP GRAVITY (test code >=1.030 1.003-1.030 = 1654938555) GLU U QUAL (test code Negative Negative = 6893479219) BLOOD (test code = Negative Negative 3800702461) KETONES (test code = Negative Negative 7167955659) PROTEIN (test code = Negative Negative 2887-8) UROBILIN (test code = 0.2 mg/dL See_Comment [Auto mated 7902812863) message] The system which generated this result transmit carl reference range : 0-1.0 mg/dL. Th e reference range was not used to interpret this result as normal/abnormal . BILIRUBIN (test code = Negative Negative 3815223918) NITRITE (test code = Negative Negative 0598004485) LEUK CHELY (test code Negative Negative = 5865304883) RBC/HPF (test code = See_Comment [Autom ated 3185598664) message] The system which generated this result transmit carl reference range : 0 - 3 HPF. The reference range was not used to interpret this result as normal/abnormal . WBC/HPF (test code = See_Comment [Autom ated 6524556987) message] The system which generated this result transmit carl reference range : 0 - 5 HPF. The reference range was not used to interpret this result as normal/abnormal . BACTERIA (test code = Moderate Negative A 6808415964) MUCOUS (test code = Moderate Negative LPF A 1566763593) SQ EPITH (test code = HPF 3115337428) CA OXALATE (test code See_Comment H [Auto mated = 2698783794) message] The system which generated this result transmit carl reference range : <=1 HPF. The reference range was not used to interpret this result as normal/abnormal . Lab Interpretation Abnormal (test code = 14454-0) [facility] HospitalLactic Acid Whole [id number] 17:57:00 Test Item Value Reference Range Interpretation Comments LACTIC ACID (test code = 1.94 mmol/L 0.5-2.2 2364449562) Lab Interpretation (test code = Normal 99087-8) [facility] WITH [id number] 17:56:00 Test Item Value Reference Range Interpretation [...] RDW-SD (test code = 41.2 fL 39-49.9 54739-5) RDW-CV (test code = 11.7 % 12-15.5 L 788-0) PLT (test code = See_Comment [Automated 777-3) message] The sy stem which generated this result transmitted reference range : 166 - 358 10*3/ ?L. The reference r madelin was not used to interpret this result as normal/abnormal . MPV (test code = 10.0 fL 9.5-12.9 70641-9) NRBC/100 WBC (test See_Comment [Automat ed code = 3486010727) message] The system which generated this result transmitted reference range : 0.0 - 10.0 /100 WBCs. The refer ence range was not u sed to interpret th is result as normal/abnormal . NRBC x10^3 (test code <0.01 See_Comment [Auto mated = 8369549474) message] The s ystem which generated this result transmitted reference range : 10*3/?L. The reference range was not used to interpret this result as normal/abnormal . GRAN MAT (NEUT) % 72.9 % (test code = 770-8) IMM GRAN % (test code 0.10 % = 5702098455) LYMPH % (test code = 21.6 % 736-9) MONO % (test code = 4.3 % 5905-5) EOS % (test code = 0.7 % 713-8) BASO % (test code = 0.4 % 706-2) GRAN MAT x10^3(ANC) 4.88 10*3/uL 1.88-7.09 (test code = 8079029612) IMM GRAN x10^3 (test <0.03 0-0.06 code = 1022140967) LYMPH x10^3 (test code 1.45 10*3/uL 1.32-3.29 = 731-0) MONO x10^3 (test code 0.29 10*3/uL 0.33-0.92 L = 742-7) EOS x10^3 (test code = 0.05 10*3/uL 0.03-0.39 711-2) BASO x10^3 (test code 0.03 10*3/uL 0.01-0.07 = 704-7) Lab Interpretation Abnormal (test code = 41414-9) [facility]PO[facility] Test, [id number] 17:24:00 Test Item Value Reference Range Interpretation Comments POCT PREG (test code = 1605) negative On board controls acceptable with present C Line (test code = 3574) POCT PREG LOT # (test code = 3575) [id number] POCT PREG TEST DATE (test 11/14/20 code = 3576) Lab Interpretation (test code = Normal 17569-1) [facility] Date/Time Note Provider Source 2021-03-20 10:36:00-00:00 [facility] ([facility]) EMERGENCY PROVIDER REPORT REPORT#:[id number] REPORT STATUS: Signed DATE:03/20/21 TIME:1036 PATIENT: EDEN CHAKRABORTY UNIT #: [id number] ROOM/BED: : 74 AGE: 45 SEX: F PCP PHYS: No Primar y or Family Physician SERVICE AUTHOR: Lemuel Villanueva DO * ALL edits or amendments must be made on the [employer]/computer document * HPI-General Illness Free Text HPI Notes Free Text HPI Notes Patient is a 45-year-old fem miquel the past medical history of Crohn's disease who presents emergency department with multiple comp laints. 1. Patient was mopping her floor at home 2 days ago and slipped and fell landing on her left side. She is reporting left rib pain, it is constant, is sharp, worse with palpation, worse with movement , worse with deep breaths, better with rest 2. Patient is complaining of midepigastric pain that began this morning is associated with vomiting. Patient has a history of a small bowel obstruction she is concerned that she ma y be developing another one. She describes the pain as a cramping pain, it is co nstant, nonradiating, worse with palpation. Nothing makes it better. General Initial Greet Date/Time 03/20/21 1030 Presentation Chief Complaint __ Review of Systems ROS Statements All systems rev neg except as marked. Past Medical History - Adult Stated Complaint RIB,HIP PAIN FROM A FALL AT RK E X2 DAYS Allergies Coded Allergies: fentanyl (Severe, SOB/ 01/10/21) Sulfa (Sulfonamide Antibiotics) (Mild, HIVES ) ketorolac tromethamine (From TORADOL) (Mild, HIV ES 01/03/17) metoclopramide HCl (From REGLAN) (Mild, HIVES ) ondansetron HCl (From ZOFRAN) (Mild, HIVES 01/03) codeine (HIVES 01/03/17) morphine (HIVES 01/03/17) pentazocine (From TALWIN) (RASH 01/03/17) Home Medications Active Scripts DICLOFENAC POTASSIUM (CATAFLAM) 50 MG PO Q8H PRN PRN PAIN DICLOFENAC POTASSIUM (CATAFLAM) 50 MG PO Q8H OR N PRN PAIN #30 TABS Prov: 01/10/21 Reported Medications PROMETHAZINE (PHENERGAN) 25 MG PO Q4H PRN DULoxetine DR (CYMBALTA) 20 MG PO BID PANTOPRAZOLE DR (PROTONIX) 40 MG PO DAILY IBUPROFEN (MOTRIN) 800 MG PO TID PRN PRN PAIN CIPROFLOXACIN (CIPRO) 500 MG PO Q12H {PROMETHAZINE} ({PHENADOZ}) 25 MG RECTAL Q6H PRN PRN NAUSEA metroNIDAZOLE (FLAGYL) 500 MG PO Q6H Review of Nursing Notes Rev avail, and agree Past Medical History: Reports: GERD/gastritis. Additional Medical History IBS, Crohn's dz Past Surgical History: Reports: , Hysterectomy. Additional Surgical History EGD/Colonoscopy Smoking status: Smoking status for patients 13 years old or old er: Current some day smoker Other Social History Local resident Physical Exam Vital Signs Vital Signs First Documented: Result Date Time Pulse Ox 100 05/06 1032 B/P 125/76 05/06 1032 B/P Mean 92 05/06 1032 O2 Delivery Room air 05/06 1032 Temp 36.8 05/06 1032 Pulse 111 05/06 1032 Resp 16 05/06 1032 Last Documented: Result Date Time Pulse Ox 100 05/06 1032 B/P 125/76 05/06 1032 B/P Mean 92 05/06 1032 O2 Delivery Room air 05/06 1032 Temp 36.8 05/06 1032 Pulse 111 05/06 1032 Resp 16 05/06 1032 Review of Vital Signs Reviewed, Vital signs abno rmal Free Text PE Notes Free Text PE Notes General: Well-nourished, well-developed, coopera tive, awake, alert, uncomfortable secondary to pain Head: Atraumatic, normocephalic Eyes: Normal conjunctiva, PERRL Ear/nose/throat: Atraumatic, airway patent, muco us membranes moist Neck: Atraumatic, supple Respiratory: Breath sounds n ormal, no respiratory distress, no rales, no rhonchi , no wheezing, tenderness to palpation to the le ft ribs Cardiovascular: Tachycardia, regular rhythm, heart sounds normal, cap refill not delayed Abdomen: Atraumatic, soft, epigastric tenderness to palpation, voluntary guarding, bowel sounds normal, no distention Upper extremities: Atraumatic, no swelling Lower extremities: Atraumatic, no swelling Skin: Normal color, no rash, warm, dry, intact Neurologic: Oriented x3, speech normal, no motor deficits, memory normal Psychiatric: Affect normal, mood normal Interpretation Diagnostics Lab Results Interpretation Results Laboratory Tests 03/20/21 1205: [Embedded Image Not Available] 03/20/21 1125: [Embedded Image Not Available] Laboratory Tests: 03/20 03/20 03/20 1205 1125 1125 Chemistry Sodium (134 - 147 mmol/L) 139 Potassium (3.4 - 5.0 mmol/L) 4.2 Chloride (100 - 108 mmol/L) 109 H Carbon Dioxide (21 - 32 mmol/L) 27 Anion Gap (4.0 - 15.0 GAP calc) 3.0 L BUN (7 - 18 MG/DL) 11 Creatinine (0.6 - 1.0 MG/DL) 0.7 Glomerular Filtr Rate (>60 estGFR) >=60 max est imate Glucose (70 - 110 MG/DL) 105 Lactic Acid (0.4 - 2.0 mmol/L) 1.3 Calcium (8.5 - 10.1 MG/DL) 8.5 Total Bilirubin (0.2 - 1.2 MG/DL) 0.60 Direct Bilirubin (0.00 - 0.30 MG/DL) 0.20 Indirect Bilirubin (0.2 - 1.2 MG/DL) 0.40 AST (15 - 37 Unit/L) 11 L ALT (12 - 78 Unit/L) 19 Total Alk Phosphatase (45 - 117 Unit/L) 65 Troponin I (0.000 - 0.045 NG/ML) < 0.015 Total Protein (6.4 - 8.2 G/DL) 6.9 Albumin (3.4 - 5.0 G/DL) 3.2 L Lipase (114 - 286 Unit/L) 77 L Coagulation INR (0.8 - 1.2 INR Unit) 0.96 PT Patient/Control Mix (9.3 - 12.9 SECONDS) 10. 7 Hematology WBC (3.5 - 11.0 K/mm3) 6.1 RBC (4.70 - 6.10 M/mm3) 3.43 L Hgb (10.4 - 14.9 G/DL) 11.1 Hct (31.5 - 44.1 %) 34.1 MCV (84.5 - 98.6 Fl) 99.4 H MCH (27.0 - 34.2 pg) 32.4 MCHC (31.5 - 34.0 G/DL) 32.6 RDW (11.5 - 14.5 SD) 12.7 Plt Count (150 - 450 K/mm3) 260 MPV (7.0 - 10.5 fL) 10.00 Neut % (Auto) (40 - 76 %) 59.3 Lymph % (Auto) (20.5 - 51.1 %) 32.1 [place] % (Auto) (1.7 - 9.3 %) 7.5 Eos % (Auto) (0.0 - 6.0 %) 0.3 Baso % (Auto) (0.0 - 2.0 %) 0.5 Neut # (Auto) (1.8 - 7.6 K/mm3) 3.6 Lymph # (Auto) (0.6 - 3.2 K/mm3) 2.0 [place] # (Auto) (0.3 - 1.1 K/mm3) 0.5 Eos # (Auto) (0.0 - 0.4 K/mm3) 0.0 Baso # (Auto) (0.0 - 0.1 K/mm3) 0.0 Abs Immat Gran (auto) (0.00 - 0.03 x10 3/uL) 0. 02 Add Manual Diff (CRITERIA DIFF/SCN) NO Immature Gran % (0.0 - 5.0 %) 0.3 Nucleated RBC % (0.0 - 1.0 /100WBC%) 0.0 Miscellaneous Maternal Serum HCG (0 - 6 mi-IU/ML) < 1 03/20 1045 Urines Urine Color (YEL/STRAW discript) YELLOW Urine Appearance (CLEAR discript) CLEAR Urine pH (5.0 - 7.0 pH UNITS) 6.0 Ur Specific [place] (1.005 - 1.030 SG) >=1.030 H Urine Protein (NEG mg/dL) NEGATIVE Urine Glucose (UA) (NEG mg/dL) NEGATIVE Urine Ketones (NEG mg/dL) NEGATIVE Urine Blood (NEG mg/DL) NEGATIVE Urine Nitrite (NEG SCREEN) NEGATIVE Urine Bilirubin (NEG mg/dL) NEGATIVE Urine Urobilinogen (<2.0 mg/dL) 0.2 Ur Leukocyte Esterase (NEGATIVE Leuk/mcL) NEGAT JANE Microbiology: Date/Time Procedure - Status Source Growth 03/20 1135 Blood Culture - RECD BLOOD 03/20 1125 Blood Culture - RECD BLOOD Recent Impressions: RADIOLOGY - XR RIBS UNI W/CXR 3+V LT 03/20 1231 Report Impression - Status: SIGNED Entered: 03/20/2021 1351 IMPRESSION: No displaced rib fracture. Impression By: [email or web address] - Faraz Pedroza M.D. CAT SCAN - CT ABD PELVIS W/CONT 03/20 1330 Report Impression - Status: SIGNED Entered: 03/20/2021 1358 IMPRESSION: No acute findings Impression By: [email or web address] - Kangmickey Bates M.D. Procedures Free Text Proc Notes Additional Text Bedside Procedural Ultrasound [X] Dynamic ultrasound was used for placement of : [] Central venous catheter [X] Peripheral IV [ ] I saved this scan on the ultrasound machine under the correct patient identifier [X] This limited ultrasound was performed and in terpreted by me. Re-Evaluation MDM Re-Evaluation/Progress #1 Text/Dict Note Vital signs are stable, no acute distress, x-ray s negative for fracture, CAT scans negative for acute findings, labs are with in normal limits. Okay to DC home with supportive care. Time of Re-Eval 1404 Re-Eval Status Improved Eval Following Treatment Pt. feels better ED Course Medication(s) Ordered Medication(s) Ordered: Anti-Infective Agents Sig/Rosa Isela Start time Last Medication Dose Route Stop Time Status Admin Ceftriaxone Sodium 1,000 MG X1ED STA 03/20 1035 DC 05/ Sodium Chloride 100 ML IV 03/20 1134 1159 Antihistamine Drugs Sig/Rosa Isela Start time Last Medication Dose Route Stop Time Status Admin Diphenhydramine HCl 25 MG X1ED STA 03/20 1256 D C 05/ IV 05/ 1257 1301 Promethazine HCl 25 MG X1ED STA 05/ 1035 DC 05/ IM 05/ 1036 1211 Central Nervous System Agents Sig/Rosa Isela Start time Last Medication Dose Route Stop Time Status Admin Morphine Sulfate 4 MG X1ED STA 03/20 1251 DC 05 /06 IV 05/ 1252 1301 Morphine Sulfate 4 MG X1ED STA 05/ 1034 DC 05 / IV 05/ 1035 1200 Diagnostic Agents Sig/Rosa Isela Start time Last Medication Dose Route Stop Time Status Admin Iopamidol 0 .STK-MED ONE 03/20 1307 DC 03/20 .ROUTE 1345 Electrolytic, Caloric, And Alejandro Sig/Rosa Isela Start time Last Medication Dose Route Stop Time Status Admin Sodium Chloride 50 ML .STK-MED ONE 03/20 1347 D C 03/20 IV 03/20 1348 1347 Sodium Chloride 1,000 ML X1ED STA 03/20 1034 DC / IV 03/20 1035 1200 Patient Discharge Departure Vital Signs/Condition Vital Signs First Documented: Result Date Time Pulse Ox 100 / 1032 B/P 125/76 05/06 1032 B/P Mean 92 05/06 1032 O2 Delivery Room air 05/ 1032 Temp 36.8 05/06 1032 Pulse 111 05/06 1032 Resp 16 05/06 1032 Last Documented: Result Date Time Pulse Ox 100 05/ 1032 B/P 125/76 05/06 1032 B/P Mean 92 05/06 1032 O2 Delivery Room air 05/ 1032 Temp 36.8 05/06 1032 Pulse 111 05/06 1032 Resp 16 05/ 1032 All vital signs available at the time of this en try have been reviewed. Condition Stable, Improved Clinical Impression Clinical Impression Primary Impression: Rib pain on left side Secondary Impressions: Epigastric pain Disposition Decision Discharge )( Discharged to Home Yes )( Time 1405 )( Date 03/20/21 Discharge/Care Plan Counseled Regarding Diagnosi s, Lab results, Imaging studies, Prescriptions, Need for follow-up, When to return to ED (Auto) Prescriptions Current Visit Scripts DICYCLOMINE (BENTYL) 10 MG PO Q6H PRN PRN ABDOMI NAL PAIN/CRAMPING DICYCLOMINE (BENTYL) 10 MG PO Q6H PRN PRN ABDOM INAL PAIN/CRAMPING #30 CAPS Patient Instructions ED Crohn's Disease, ED Soft Tissue Contusion Referrals Vitaly Mcguire MD: Call for appointment Electronically Signed by Lemuel Villanueva DO on 05/05 at 1406 RPT #: [id number] END OF REPORT 2021-01-10 21:11:00-00:00 [facility] ([facility]) EMERGENCY PROVIDER REPORT REPORT#:[id number] REPORT STATUS: Signed DATE:01/10/21 TIME: 2110 PATIENT: EDEN CHAKRABORTY UNIT #: [id number] ROOM/BED: AGE: 45 SEX: F PCP PHYS: No Primary or Family P hysician SERVICE AUTHOR: Karissa Ann LOCATION: [facility] * ALL edits or amendments must be made on the [employer]/computer document * HPI-Knee Prob/Inj General Confirmed Patient Yes Patient Type New patient Initial Greet Date/Time 01/10/212027 Presentation Chief Complaint Knee pain R Hx Obtained From Patient Onset Occurred Today Symptom Duration Since onset Progression since Onset Constant Caused by No trauma by history Location Knee, R anterior Quality Painful Severity: Onset Moderate Severity: Current Moderate Relieved by Nothing Context Recent Healthcare No recent doctor visit, No rec ent hospitalization Similar Sx Previous No Free Text HPI Notes Free Text HPI Notes 45 y.o female presents for e valuation of atraumatic right knee pain that started today. Patient states pain h as been unresponsive to OTC meds and no other acute complains reported at this time. Review of Systems ROS Statements All systems rev neg except as marked. Focused Review of Systems Constitutional Denies: Chills, Fever, Lethargy. Musculoskeletal Reports: Joint pain. Denies: Back pain, Extremit y pain. Skin Denies: Abrasion, Laceration. Neurologic Denies: Focal weakness, Numbness. Past Medical History - Adult Stated Complaint RT KNEE PAIN Allergies Coded Allergies: fentanyl (Severe, SOB/ 01/10/21) Sulfa (Sulfonamide Antibiotics) (Mild, HIVES ) ketorolac tromethamine (From TORADOL) (Mild, HIV ES 01/03/17) metoclopramide HCl (From REGLAN) (Mild, HIVES ) ondansetron HCl (From ZOFRAN) (Mild, HIVES 01/03) codeine (HIVES 01/03/17) morphine (HIVES 01/03/17) pentazocine (From TALWIN) (RASH 01/03/17) Home Medications Reported Medications PROMETHAZINE (PHENERGAN) 25 MG PO Q4H PRN DULoxetine DR (CYMBALTA) 20 MG PO BID PANTOPRAZOLE DR (PROTONIX) 40 MG PO DAILY IBUPROFEN (MOTRIN) 800 MG PO TID PRN PRN PAIN CIPROFLOXACIN (CIPRO) 500 MG PO Q12H {PROMETHAZINE} ({PHENADOZ}) 25 MG RECTAL Q6H PRN PRN NAUSEA metroNIDAZOLE (FLAGYL) 500 MG PO Q6H Review of Nursing Notes Rev avail, and agree Physical Exam Vital Signs Vital Signs First Documented: Result Date Time Pulse Ox 100 01/10 2026 B/P 124/79 01/10 2026 B/P Mean 94.0 01/10 2026 O2 Delivery Room air 01/10 2026 Temp 37.3 01/10 2026 Pulse 116 01/10 2026 Resp 18 01/10 2026 Last Documented: Result Date Time Pulse Ox 100 01/10 2026 B/P 124/79 01/10 2026 B/P Mean 94.0 01/10 2026 O2 Delivery Room air 01/10 2026 Temp 37.3 01/10 2026 Pulse 116 01/10 2026 Resp 18 01/10 2026 Review of Vital Signs Reviewed Basic Physical Exam Basic PE RESP: No resp distress, NEURO: alert or iented Focused PE General/Const General/Const Awake, Alert, No acute distress, Well appearing, Not toxic appearing Resp/Chest Respiratory/Chest No respiratory distress Cardiovascular Cardiovascular Heart rate NL, Peripheral circul ation NL MS Lower Extrem Lower Ext/Pelvis/MS Inspection NL, Full range o f motion, No erythema, No deformity, Neurologic intact, Vascular i ntact, No ligamentous injury, No edema Right Knee Tenderness present, ROM painful. Skin Skin No rash, Warm, Dry, Intact Neurologic Neurologic Oriented X3, Speech NL, No motor def icits, Gait NL Interpretation Diagnostics Lab Results Interpretation Results Recent Impressions: RADIOLOGY - XR KNEE 3 V RT 01/10 2040 Report Impression - Status: SIGNED Entered: 01/10/20212107 IMPRESSION: Fairly unremarkable exam Impression By: Camille Leigh MD Imaging Statement Radiographic studies reviewed and considered in the medical decision-making. Point of Care Testing Pulse Oximetry Pulse Ox % 100 On: Room air Interpretation Interpreted by me Pulse oximetr y normal Time 2025 Re-Evaluation [facility] ED Course Patient Course Stable Medication(s) Ordered Medication(s) Ordered: Central Nervous System Agents Sig/Rosa Isela Start time Last Medication Dose Route Stop Time Status Admin Ibuprofen 600 MG X1ED STA 01/10 2106 DC 01/10 PO 01/10 Safety Concerns Patient is safe Patient Discharge Departure Vital Signs/Condition Vital Signs First Documented: Result Date Time Pulse Ox 100 01/10 2026 B/P 124/79 01/10 2026 B/P Mean 94.0 01/10 2026 O2 Delivery Room air 01/10 2026 Temp 37.3 01/10 2026 Pulse 116 01/10 2026 Resp 18 01/10 2026 Last Documented: Result Date Time Pulse Ox 100 01/10 2026 B/P 124/79 01/10 2026 B/P Mean 94.0 01/10 2026 O2 Delivery Room air 01/10 2026 Temp 37.3 01/10 2026 Pulse 116 01/10 2026 Resp 18 01/10 2026 All vital signs available at the time of this en try have been reviewed. Condition Stable Clinical Impression Clinical Impression Primary Impression: Right knee pain Disposition Decision Discharge )( Discharged to Home Yes )( Time 2111 )( Date 01/10/21 Discharge/Care Plan Counseled Regarding Diagnosi s, Imaging studies, Prescriptions, Need for follow- up, When to return to ED Prescriptions Diclofenac (Auto) Prescriptions Current Visit Scripts DICLOFENAC POTASSIUM (CATAFLAM) 50 MG PO Q8H PRN PRN PAIN DICLOFENAC POTASSIUM (CATAFLAM) 50 MG PO Q8H P RN PRN PAIN #30 TABS Prescriptions Reviewed Risks, Benefits, Alternat jane treatment Patient Instructions ED Knee Pain of Uncertain C ause Referrals [facility] Quality Measures BP F/U for HTN F/u with PCP/other doc Free Text Depart Notes Free Text Depart Notes Patient's condition remained stable during emerg ency department evaluation. Patient was observed ambulating with no difficul ty, was in no acute cardiorespiratory distress and no acute neurolog ical changes noted. I discussed physical examination and diagnostic test results with patient including need for follow-up evaluation. I encouraged return to the nearest ED if symptoms change or worsens. Patient verbalize s understanding and states intention to ensure follow-up as advised. Electronically Signed by Karissa Ann on at 0210 RPT #:[id number] END OF REPORT 2021-01-10 21:11:00-00:00 [facility] ([facility]) EMERGENCY PROVIDER REPORT REPORT#:[id number] REPORT STATUS: Signed DATE:01/10/21 TIME: 2110 PATIENT: EDEN CHAKRABORTY UNIT #: [id number] ROOM/BED: AGE: 45 SEX: F PCP PHYS: No Primary or Family Ph ysician SERVICE AUTHOR: Karissa Ann LOCATION: [facility] * ALL edits or amendments must be made on the [employer]/computer document * Karissa Ann 01/10/212110: HPI-Knee Prob/Inj General Confirmed Patient Yes Patient Type New patient Initial Greet Date/Time 01/10/212027 Presentation Chief Complaint Knee pain R Hx Obtained From Patient Onset Occurred Today Symptom Duration Since onset Progression since Onset Constant Caused by No trauma by history Location Knee, R anterior Quality Painful Severity: Onset Moderate Severity: Current Moderate Relieved by Nothing Context Recent Healthcare No recent doctor visit, No rec ent hospitalization Similar Sx Previous No Free Text HPI Notes Free Text HPI Notes 45 y.o female presents for e valuation of atraumatic right knee pain that started today. Patient states pain h as been unresponsive to OTC meds and no other acute complains reported at this time. Review of Systems ROS Statements All systems rev neg except as marked. Focused Review of Systems Constitutional Denies: Chills, Fever, Lethargy. Musculoskeletal Reports: Joint pain. Denies: Back pain, Extremit y pain. Skin Denies: Abrasion, Laceration. Neurologic Denies: Focal weakness, Numbness. Past Medical History - Adult Stated Complaint RT KNEE PAIN Allergies Coded Allergies: fentanyl (Severe, SOB/ 01/10/21) Sulfa (Sulfonamide Antibiotics) (Mild, HIVES ) ketorolac tromethamine (From TORADOL) (Mild, HIV ES 01/03/17) metoclopramide HCl (From REGLAN) (Mild, HIVES ) ondansetron HCl (From ZOFRAN) (Mild, HIVES 01/03) codeine (HIVES 01/03/17) morphine (HIVES 01/03/17) pentazocine (From TALWIN) (RASH 01/03/17) Home Medications Reported Medications PROMETHAZINE (PHENERGAN) 25 MG PO Q4H PRN DULoxetine (CYMBALTA) 20 MG PO BID PANTOPRAZOLE DR (PROTONIX) 40 MG PO DAILY IBUPROFEN (MOTRIN) 800 MG PO TID PRN PRN PAIN CIPROFLOXACIN (CIPRO) 500 MG PO Q12H {PROMETHAZINE} ({PHENADOZ}) 25 MG RECTAL Q6H PRN PRN NAUSEA metroNIDAZOLE (FLAGYL) 500 MG PO Q6H Review of Nursing Notes Rev avail, and agree Physical Exam Vital Signs Vital Signs First Documented: Result Date Time Pulse Ox 100 01/10 2026 B/P 124/79 01/10 2026 B/P Mean 94.0 01/10 2026 O2 Delivery Room air 01/10 2026 Temp 37.3 01/10 2026 Pulse 116 01/10 2026 Resp 18 01/10 2026 Last Documented: Result Date Time Pulse Ox 100 01/10 2026 B/P 124/79 01/10 2026 B/P Mean 94.0 01/10 2026 O2 Delivery Room air 01/10 2026 Temp 37.3 01/10 2026 Pulse 116 01/10 2026 Resp 18 01/10 2026 Review of Vital Signs Reviewed Basic Physical Exam Basic PE RESP: No resp distress, NEURO: alert or iented Focused PE General/Const General/Const Awake, Alert, No acute distress, Well appearing, Not toxic appearing Resp/Chest Respiratory/Chest No respiratory distress Cardiovascular Cardiovascular Heart rate NL, Peripheral circu lation NL MS Lower Extrem Lower Ext/Pelvis/MS Inspection NL, Full range o f motion, No erythema, No deformity, Neurologic intact, Vascular i ntact, No ligamentous injury, No edema Right Knee Tenderness present, ROM painful. Skin Skin No rash, Warm, Dry, Intact Neurologic Neurologic Oriented X3, Speech NL, No motor def icits, Gait NL Interpretation Diagnostics Lab Results Interpretation Results Recent Impressions: RADIOLOGY - XR KNEE 3 V RT 01/10 2040 Report Impression - Status: SIGNED Entered: 01/10/20212107 IMPRESSION: Fairly unremarkable exam Impression By: Camille Leigh MD Imaging Statement Radiographic studies reviewed and considered in the medical decision-making. Point of Care Testing Pulse Oximetry Pulse Ox % 100 On: Room air Interpretation Interpreted by me, Pulse oximetr y normal Time 2025 Re-Evaluation [facility] ED Course Patient Course Stable Medication(s) Ordered Medication(s) Ordered: Central Nervous System Agents Sig/Rosa Isela Start time Last Medication Dose Route Stop Time Status Admin Ibuprofen 600 MG X1ED STA 01/10 2106 DC 01/10 PO 01/10 Safety Concerns Patient is safe Patient Discharge Departure Vital Signs/Condition Vital Signs First Documented: Result Date Time Pulse Ox 100 01/10 2026 B/P 124/79 01/10 2026 B/P Mean 94.0 01/10 2026 O2 Delivery Room air 01/10 2026 Temp 37.3 01/10 2026 Pulse 116 01/10 2026 Resp 18 01/10 2026 Last Documented: Result Date Time Pulse Ox 100 01/10 2026 B/P 124/79 01/10 2026 B/P Mean 94.0 01/10 2026 O2 Delivery Room air 01/10 2026 Temp 37.3 01/10 2026 Pulse 116 01/10 2026 Resp 18 01/10 2026 All vital signs available at the time of this en try have been reviewed. Condition Stable Clinical Impression Clinical Impression Primary Impression: Right knee pain Disposition Decision Discharge )( Discharged to Home Yes )( Time 2111 )( Date 01/10/21 Discharge/Care Plan Counseled Regarding Diagnosi s, Imaging studies, Prescriptions, Need for follow- up, When to return to ED Prescriptions Diclofenac (Auto) Prescriptions Current Visit Scripts DICLOFENAC POTASSIUM (CATAFLAM) 50 MG PO Q8H PRN PRN PAIN DICLOFENAC POTASSIUM (CATAFLAM) 50 MG PO Q8H OR N PRN PAIN #30 TABS Prescriptions Reviewed Risks, Benefits, Alternat jane treatment Patient Instructions ED Knee Pain of Uncertain C ause Referrals [facility] Quality Measures BP F/U for HTN F/u with PCP/other doc Free Text Depart Notes Free Text Depart Notes Patient's condition remained stable during emerg ency department evaluation. Patient was observed ambulating with no difficul ty, was in no acute cardiorespiratory distress and no acute neurolog ical changes noted. I discussed physical examination and diagnostic test results with patient including need for follow-up evaluation. I encouraged return to the nearest ED if symptoms change or worsens. Patient verbalize s understanding and states intention to ensure follow-up as advised. Timur Middleton 01/13/21 1400: Patient Discharge Departure Supervising Physician Note MidLv Saw Pt Alone I have reviewed the PA/FITNESS CENTRE MANAGER's note and plan of car e. I was available for consultation as needed at al l times during the patient's visit in the emergency department. I agree with the clinical impression , plan and disposition. Electronically Signed by Karissa Ann on at 0210 at 1400 RPT #:[id number] END OF REPORT"
[2023-06-01 21:00] LABS: Absolute Lymphocytes (CBC) 2.3 K/uL (0.7-4.9); MCV 95.5 fL (80-100); RBC Red Blood Cell Count 4.19 M/uL (3.86-4.86)
[2023-06-01 21:07] LABS: Urine Bilirubin NEGATIVE (Negative); Urine Blood Negative (Negative); Urine Clarity Clear (Clear); Urine Color Light-Yellow (Yellow); Urine Glucose NEGATIVE (Negative); Urine Protein NEGATIVE (Negative); Urine Urobilinogen Normal (Normal); Urine pH 5.5 (5.0-7.0)
[2023-06-01 21:13] LABS: Albumin 3.8 g/dL (3.4-5.0); Bilirubin Total 0.7 mg/dL (0.2-1.0); Potassium 3.4 mEq/L (3.5-5.1); Protein, Total 8.3 g/dL (6.4-8.2)
[2023-06-01] MEDS ORDERED: DIPHENHYDRAMINE 50 MG/ML VIAL ONE (21:27)
[2023-06-01] MEDS ORDERED: PROMETHAZINE INJ 25 MG/ML AMP ONE ×2 (21:27→21:32)
[2023-06-01] MEDS ORDERED: NA CHLORIDE 0.9% 1,000 ML ONE (21:28)
[2023-06-01] MEDS ORDERED: FAMOTIDINE 20 MG/2 ML VIAL IV ONE (21:28)
[2023-06-01] MEDS ORDERED: NA CHLORIDE 0.9% 50 ML ONE ×2 (21:28→21:33)
[2023-06-01] MEDS ORDERED: HYDROMORPHONE HCL 1 MG/ML INJ ONE ×2 (21:28→23:12)
[2023-06-01] MEDS ORDERED: METHYLPREDNISOLONE 125 MG INJ ONE (21:58)
--- NOTE | 2023-06-01 22:16 | RAD REPORT ---
EXAM DESCRIPTION: RAD - Abdomen Acute Series - 06/01/2023 10:09 pm CLINICAL HISTORY: ABD PAIN COMPARISON: Chest Single View dated 03/08/2023; Chest Single View dated 07/12/2022; Chest Single View dated 11/22/2021; Chest Single View dated 08/02/2021 FINDINGS: The lungs are grossly clear. The heart is upper limit of normal. No bowel obstruction is present. No abnormal calcifications seen. No aggressive bone lesion. IMPRESSION: No acute process is identified.
--- NOTE | 2023-06-01 22:57 | ER ---
Nurse's Notes [facility] Name: Jessica Stearns Age: 47 yrs Sex: Female : 1975 Arrival Date: 06/01/2023 Time: 19:04 Bed 13 Private MD: Diagnosis: Crohn's disease, unspecified, without complications;Nausea with vomiting, unspecified;Abdominal pain, unspecified Presentation: 06/01 19:30 Chief complaint: Patient states: Wednesday pt started feeling sick and yesterday pt as6 started having nausea, vomiting, and abdominal pain. Coronavirus screen: At this time, the client does not indicate any symptoms associated with coronavirus-19. Ebola Screen: No symptoms or risks identified at this time. Initial Sepsis Screen: Does the patient meet any 2 criteria? No. Patient's initial sepsis screen is negative. Does the patient have a suspected source of infection? No. Patient's initial sepsis screen is negative. Risk Assessment: Do you want to hurt yourself or someone else? Patient reports no desire to harm self or others. Onset of symptoms was May 31, 2023. 19:30 Method Of Arrival: Ambulatory as6 19:30 Acuity: EVELIA 3 as6 Triage Assessment: 19:34 General: Appears uncomfortable, Behavior is calm, cooperative. Pain: Complains of pain as6 in abdomen. GI: Reports upper abdominal pain, nausea, vomiting. 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 - Social history:: Smoking status: Patient denies any tobacco usage or history of. Screenin:20 [facility] ED Fall Risk Assessment (Adult) History of falling in the last 3 months, cm10 including since admission No falls in past 3 months (0 pts) Confusion or Disorientation No (0 pts) Intoxicated or Sedated No (0 pts) Impaired Gait No (0 pts) Mobility Assist Device Used No (0 pt) Altered Elimination No (0 pt) Score/Fall Risk Level 0 - 2 = Low Risk Oriented to surroundings, Maintained a safe environment, Hourly rounding (assess needs \T\ fall precautionary measures) done. Abuse screen: Denies threats or abuse. Denies injuries from another. Nutritional screening: No deficits noted. Tuberculosis screening: No symptoms or risk factors identified. Assessment: 22:19 General: Appears in no apparent distress. comfortable, Behavior is calm, cooperative. cm10 Pain: Complains of pain in abdomen. Neuro: No deficits noted. Level of Consciousness is awake, alert, Oriented to person, place, time, situation. Cardiovascular: No deficits noted. Capillary refill < 3 seconds. Respiratory: No deficits noted. Airway is patent Respiratory effort is even, unlabored, Respiratory pattern is regular, symmetrical. GI: Bowel sounds Abdomen is tender to palpation in right upper quadrant and right lower quadrant Reports nausea, vomiting. 22:21 Reassessment: Patient and/or family updated on plan of care and expected duration. Pain cm10 level reassessed. Patient is alert, oriented x 3, equal unlabored respirations, skin warm/dry/pink. Patient states feeling better. Vital Signs: 19:30 BP 134 / 96; Pulse 115; Resp 20 S; Temp 97.3(TE); Pulse Ox 100% on R/A; Weight 63.5 kg as6 (R); Height 5 ft. 7 in. (R); Pain 10/10; 21:24 BP 133 / 70; Pulse 110; Resp 18; Pulse Ox 100% on R/A; cm10 21:30 BP 134 / 83; Pulse 108; Resp 18; Pulse Ox 100% on R/A; cm10 22:00 BP 122 / 93; Pulse 85; Resp 18; Pulse Ox 100% on R/A; cm10 23:00 BP 140 / 78; Pulse 92; Resp 16; Pulse Ox 100% on R/A; cm10 19:30 Body Mass Index 21.93 (63.50 kg, 170.18 cm) as6 19:30 Pain Scale: Adult as6 ED Course: 19:06 Patient arrived in ED. mr 19:33 Triage completed. as6 19:34 Arm band placed on. as6 19:40 Alexis Saucedo PA is PHCP. cp 19:40 Gerry Torres MD is Attending Physician. cp 19:43 Jessica Hunter, ZARA is Primary Nurse. cm10 20:42 Initial lab(s) drawn, by me, sent to lab. Inserted saline lock: 20 gauge in right upper cm10 arm, using aseptic technique. Blood collected. 20:43 CBC with Diff Sent. cm10 20:43 CMP Sent. cm10 20:43 Lipase Sent. cm10 22:11 XRAY Abdomen Acute Series In Process Unspecified. EDMS 22:20 Patient has correct armband on for positive identification. Bed in low position. Call cm10 light in reach. Side rails up X2. Provided Education on: N/A. Pulse ox on. NIBP on. Door closed. Noise minimized. Lights dimmed. Warm blanket given. 22:56 Farooq Edwards MD is Referral Physician. cp 23:25 No provider procedures requiring assistance completed. IV discontinued, intact, cm10 bleeding controlled, No redness/swelling at site. Pressure dressing applied. Administered Medications: 21:37 Drug: HYDROmorphone IVP 1 mg Route: IVP; Site: right upper arm; cm10 22:11 Follow up: Response: No adverse reaction; Pain is decreased cm10 21:37 Drug: NS 0.9% IV 1000 ml Route: IV; Rate: 1 bolus; Site: right upper arm; cm10 22:30 Follow up: Response: No adverse reaction; IV Status: Completed infusion; IV Intake: cm10 1000ml 21:37 Drug: Famotidine IVP 20 mg Route: IVP; Site: right upper arm; cm10 22:10 Follow up: Response: No adverse reaction cm10 21:37 Drug: Promethazine IVP 25 mg Route: IVP; Site: right upper arm; cm10 22:10 Follow up: Response: No adverse reaction cm10 21:38 Drug: diphenhydrAMINE IVP 25 mg Route: IVP; Site: right upper arm; cm10 22:11 Follow up: Response: No adverse reaction cm10 22:10 Drug: MethylPrednisoLONE IVP 125 mg Route: IVP; Site: right upper arm; cm10 23:00 Drug: Potassium PO Effervescent Tablet 25 mEq Route: PO; cm10 23:24 Follow up: Response: No adverse reaction cm10 23:00 Drug: HYDROmorphone IVP 1 mg Route: IVP; Site: right upper arm; cm10 23:24 Follow up: Response: No adverse reaction cm10 Medication: 22:21 VIS not applicable for this client. cm10 Intake: 22:30 IV: 1000ml; Total: 1000ml. cm10 Outcome: 22:57 Discharge ordered by MD. cp 23:25 Discharged to home ambulatory, with family. cm10 23:25 Condition: good 23:25 Discharge instructions given to patient, Instructed on discharge instructions, follow up and referral plans. medication usage, Demonstrated understanding of instructions, follow-up care, medications, Prescriptions given X 1. 23:25 Patient left the ED. cm10 Signatures: Dispatcher [employer] EDSC Bobby Deepika peters Alexis Saucedo PA PA cp Jefferson Fermin RN RN as6 Jessica Hunter RN RN cm10 Corrections: (The following items were deleted from the chart) 19:35 19:34 LMP 06/01/2023 as6 as6
--- NOTE | 2023-06-01 22:57 | EDPHYS ---
Physician Documentation [facility] Name: Jessica Stearns Age: 47 yrs Sex: Female : 1975 Arrival Date: 06/01/2023 Time: 19:04 Bed 13 Private MD: ED Physician Gerry Torres HPI: 06/01 20:30 This 47 yrs old Black Female presents to ER via Ambulatory with complaints of Abdominal cp Pain, Vomiting. 20:30 The patient presents with abdominal pain in the right upper quadrant, right lower cp quadrant. Onset: The symptoms/episode began/occurred yesterday. Associated signs and symptoms: Pertinent positives: nausea and vomiting, anorexia, Pertinent negatives: blood in stools, constipation, diarrhea, fever, active vomiting. Severity of pain: in the emergency department the pain is unchanged despite home interventions. The patient has experienced similar episodes in the past, multiple times. 20:30 Patient reports PMHX significant for Crohn's. 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 - Social history:: Smoking status: Patient denies any tobacco usage or history of. ROS: 20:35 Constitutional: Negative for body aches, chills, fever. cp 20:35 Eyes: Negative for injury, pain, redness, and discharge. cp 20:35 ENT: Negative for drainage from ear(s), ear pain, sore throat, difficulty swallowing, difficulty handling secretions. 20:35 Cardiovascular: Negative for chest pain, palpitations. 20:35 Respiratory: Negative for cough, shortness of breath, wheezing. 20:35 Abdomen/GI: Positive for abdominal pain, nausea and vomiting, Negative for diarrhea, constipation, black/tarry stool, rectal bleeding. 20:35 Back: Negative for pain at rest, pain with movement. 20:35 Neuro: Negative for altered mental status, dizziness, headache, weakness. 20:35 All other systems are negative. Exam: 20:40 Constitutional: The patient appears in no acute distress, alert, awake, cp non-diaphoretic, non-toxic, well developed, well nourished, uncomfortable. 20:40 Head/Face: Normocephalic, atraumatic. cp 20:40 Eyes: Periorbital structures: appear normal, Conjunctiva: normal, no exudate, no injection, Sclera: no appreciated abnormality, Lids and lashes: appear normal, bilaterally. 20:40 ENT: External ear(s): are unremarkable, Nose: is normal, Mouth: is normal, Posterior pharynx: is normal, airway is patent, no erythema, no exudate. 20:40 Neck: ROM/movement: is normal, is supple, without pain, no range of motions limitations. 20:40 Chest/axilla: Inspection: normal. 20:40 Cardiovascular: Rate: tachycardic, Rhythm: regular. 20:40 Respiratory: the patient does not display signs of respiratory distress, Respirations: normal, no use of accessory muscles, no retractions, labored breathing, is not present, Breath sounds: are clear throughout, no decreased breath sounds, no stridor, no wheezing. 20:40 Abdomen/GI: Inspection: abdomen appears normal, Bowel sounds: active, all quadrants, Palpation: soft, in all quadrants, severe abdominal tenderness, in the right upper quadrant and right lower quadrant, rebound tenderness, is not appreciated, involuntary guarding, is not appreciated. 20:40 Back: pain, is absent, ROM is normal, CVA tenderness, is absent. 20:40 Neuro: Orientation: to person, place \T\ time. Mentation: is normal, Motor: moves all fours, strength is normal. Vital Signs: 19:30 BP 134 / 96; Pulse 115; Resp 20 S; Temp 97.3(TE); Pulse Ox 100% on R/A; Weight 63.5 kg as6 (R); Height 5 ft. 7 in. (R); Pain 10/10; 21:24 BP 133 / 70; Pulse 110; Resp 18; Pulse Ox 100% on R/A; cm10 21:30 BP 134 / 83; Pulse 108; Resp 18; Pulse Ox 100% on R/A; cm10 22:00 BP 122 / 93; Pulse 85; Resp 18; Pulse Ox 100% on R/A; cm10 23:00 BP 140 / 78; Pulse 92; Resp 16; Pulse Ox 100% on R/A; cm10 19:30 Body Mass Index 21.93 (63.50 kg, 170.18 cm) as6 19:30 Pain Scale: Adult as6 MDM: 19:41 Patient medically screened. cp 22:56 Data reviewed: vital signs, nurses notes, lab test result(s), radiologic studies, plain cp films. 22:56 Differential diagnosis: diverticulitis, non-specific abd pain, pancreatitis, Peptic cp Ulcer Disease, Perf. Duodenal Ulcer, Perf. Gastric Ulcer, Pyelonephritis, Ureterolithiasis, urinary tract infection. Test considered but Not performed: CT: abdomen/pelvis. Response to treatment: the patient's symptoms have markedly improved after treatment, and as a result, I will discharge patient. Special discussion: Based on the patient's Hx, exam, and Dx evaluation, there is no indication for emergent surgery or inpatient Tx. It is understood by the patient/guardian that if the Sx's persist or worsen they need to return immediately for re-evaluation. I discussed with the patient their frequent requests for pain medications. Instructions have been given, that in the best interests of the patient, further pain Rx's must come from the patient's PCP or a design painter. 06/01 20:14 Order name: CBC with Diff; Complete Time: 21:26 cp 06/01 22:13 Interpretation: Normal except: LYM% 47.0. cp 06/01 20:14 Order name: CMP; Complete Time: 21:26 cp 06/01 22:14 Interpretation: Normal except: NA 135; K 3.4; ANION GAP 4.4; BUN 20; GFR 72; TP 8.3; cp GLOB 4.5; A/G 0.8. 06/01 20:14 Order name: Lipase; Complete Time: 21:26 cp 06/01 20:14 Order name: Test, Urine; Complete Time: 21:26 cp 06/01 20:14 Order name: Urinalysis w/ reflexes; Complete Time: 21:26 cp 06/01 21:05 Order name: Magnesium; Complete Time: 22:13 cp 06/01 22:13 Interpretation: Reviewed. cp 06/01 21:27 Order name: XRAY Abdomen Acute Series; Complete Time: 22:26 cp 06/01 22:26 Interpretation: Report reviewed. cp 06/01 20:14 Order name: IV Saline Lock; Complete Time: 20:43 cp 06/01 20:14 Order name: Labs collected and sent; Complete Time: 20:43 cp 06/01 22:26 Order name: PO challenge; Complete Time: 22:44 cp Administered Medications: 21:37 Drug: HYDROmorphone IVP 1 mg Route: IVP; Site: right upper arm; cm10 22:11 Follow up: Response: No adverse reaction; Pain is decreased cm10 21:37 Drug: NS 0.9% IV 1000 ml Route: IV; Rate: 1 bolus; Site: right upper arm; cm10 22:30 Follow up: Response: No adverse reaction; IV Status: Completed infusion; IV Intake: cm10 1000ml 21:37 Drug: Famotidine IVP 20 mg Route: IVP; Site: right upper arm; cm10 22:10 Follow up: Response: No adverse reaction cm10 21:37 Drug: Promethazine IVP 25 mg Route: IVP; Site: right upper arm; cm10 22:10 Follow up: Response: No adverse reaction cm10 21:38 Drug: diphenhydrAMINE IVP 25 mg Route: IVP; Site: right upper arm; cm10 22:11 Follow up: Response: No adverse reaction cm10 22:10 Drug: MethylPrednisoLONE IVP 125 mg Route: IVP; Site: right upper arm; cm10 23:00 Drug: Potassium PO Effervescent Tablet 25 mEq Route: PO; cm10 23:24 Follow up: Response: No adverse reaction cm10 23:00 Drug: HYDROmorphone IVP 1 mg Route: IVP; Site: right upper arm; cm10 23:24 Follow up: Response: No adverse reaction cm10 Disposition Summary: 06/01/23 22:57 Discharge Ordered Location: Home cp Problem: an acute exacerbation cp Symptoms: have improved cp Condition: Stable cp Diagnosis - Crohn's disease, unspecified, without complications cp - Nausea with vomiting, unspecified cp - Abdominal pain, unspecified cp Followup: cp - With: Farooq Edwards MD - When: 1 - 2 days - Reason: Recheck today's complaints Discharge Instructions: - Discharge Summary Sheet cp - Abdominal Pain, Adult cp - Crohn's Disease cp - Nausea and Vomiting, Adult cp Forms: - Medication Reconciliation Form cp - Thank You Letter cp - Antibiotic Education cp - Prescription Opioid Use cp - Patient Portal Instructions cp Prescriptions: - promethazine 25 mg Oral Tablet - take 1 tablet by ORAL route every 6 hours As needed; 20 tablet; Refills: 0, cp Product Selection Permitted Signatures: Dispatcher [employer] EDMS Alexis Saucedo PA PA cp Slawson, Ashby RN RN as6 Jessica Hunter RN RN cm10
[2023-06-01] MEDS ORDERED: POTASSIUM 25 MEQ EFFERV TAB ONE (23:12)
[2023-06-02 00:29] VITALS: TEMP 97.3; O2SAT 100
[2023-06-02 00:36] VITALS: BP 140/78
== END 2023-06-01 23:25 | disposition home or self-care (01) ==
LOC: ER 19:04
DX: K50.90 Crohn's disease, unspecified, without complications (principal); R10.9 Unspecified abdominal pain
CPT/HCPCS: 36415; 74022; 80053; 81003; 81025; 83690; 83735; 85025; J1170; J1200; J2550; J2930; J7030

== ENCOUNTER 2023-09-05 06:33 | Observation (INO) | payer OTHER ==
--- OUTSIDE RECORDS SUMMARY | 2023-09-05 06:46 | XMS REPORT | Continuity of Care Document ---
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 500mg Take 1 [facility] LE 500 mg 2-16 tablet by ity o f tablet 00:00: mouth [place] 00 every 8 Medical (eight) Branch hours. metoprolol 2019- Yes [id number] 25mg Take 1 Un thor tartrate 25 2-16 tablet by ity of mg tablet 00:00: mouth 2 [place] 00 (two) Medical times Branch daily. simethicone 2020- Yes [id number] 80mg Take 1 [facility] 80 mg 2-16 tablet by ity of chewable 00:00: mouth at [place] tablet 00 bedtime as Medical needed for Branch Gas. ciprofloxac 2019- Yes [id number] 500mg Take 1 [facility] in HCl 500 2-16 tablet by ity of mg tablet 00:00: mouth [place] 00 every 12 Medical (twelve) Branch hours. metroNIDAZO 2019- Yes [id number] 500mg Take 1 [facility] LE 500 mg 2-16 tablet by ity o f tablet 00:00: mouth [place] 00 every 8 Medical (eight) Branch hours. metoprolol 2019- Yes [id number] 25mg Take 1 Un thor tartrate 25 2-16 tablet by ity of mg tablet 00:00: mouth 2 [place] 00 (two) Medical times Branch daily. simethicone 2019- Yes [id number] 80mg Take 1 [facility] 80 mg 2-16 tablet by ity of chewable 00:00: mouth at [place] tablet 00 bedtime as Medical needed for Branch Gas. ciprofloxac 2019- Yes [id number] 500mg Take 1 [facility] in HCl 500 2-16 tablet by ity of mg tablet 00:00: mouth [place] 00 every 12 Medical (twelve) Branch hours. metroNIDAZO 2019- Yes [id number] 500mg Take 1 [facility] LE 500 mg 2-16 tablet by ity o f tablet 00:00: mouth [place] 00 every 8 Medical (eight) Branch hours. metoprolol 2019- Yes [id number] 25mg Take 1 Un thor tartrate 25 2-16 tablet by ity of mg tablet 00:00: mouth 2 [place] 00 (two) Medical times Branch daily. simethicone 2019- Yes [id number] 80mg Take 1 [facility] 80 mg 2-16 tablet by ity of chewable 00:00: mouth at [place] tablet 00 bedtime as Medical needed for Branch Gas. ciprofloxac 2019- Yes [id number] 500mg Take 1 [facility] in HCl 500 2-16 tablet by ity of mg tablet 00:00: mouth [place] 00 every 12 Medical (twelve) Branch hours. metroNIDAZO 2019-11 Yes [id number] 500mg Take 1 [facility] LE 500 mg 2-16 tablet by ity o f tablet 00:00: mouth [place] 00 every 8 Medical (eight) Branch hours. metoprolol 2019-11 Yes [id number] 25mg Take 1 Un thor tartrate 25 2-16 tablet by ity of mg tablet 00:00: mouth 2 [place] 00 (two) Medical times Branch daily. simethicone 2019-11 Yes [id number] 80mg Take 1 [facility] 80 mg 2-16 tablet by ity of chewable 00:00: mouth at [place] tablet 00 bedtime as Medical needed for Branch Gas. ciprofloxac 2019-11 Yes [id number] 500mg Take 1 [facility] in HCl 500 2-16 tablet by ity of mg tablet 00:00: mouth [place] 00 every 12 Medical (twelve) Branch hours. metroNIDAZO 2019-11 Yes [id number] 500mg Take 1 [facility] LE 500 mg 2-16 tablet by ity o f tablet 00:00: mouth [place] 00 every 8 Medical (eight) Branch hours. metoprolol 2019-11 Yes [id number] 25mg Take 1 Un thor tartrate 25 2-16 tablet by ity of mg tablet 00:00: mouth 2 [place] 00 (two) Medical times Branch daily. simethicone 2019-11- No [id number] 80mg Take 1 [facility] 80 mg 2-16 09-21 tablet by ity of chewable 00:00: 00:00 mouth [place] tablet 00 :00 bedtime as Medical needed for Branch Gas. ciprofloxac 2019-11- No [id number] 500mg Take 1 [facility] in HCl 500 2-16 09-21 tablet by ity of mg tablet 00:00: 00:00 mouth [place] 00 :00 every 12 Medical (twelve) Branch hours. metroNIDAZO 2019-11- No [id number] 500mg Take 1 [facility] LE 500 mg 2-16 09-21 tablet by ity of tablet 00:00: 00:00 mouth [place] 00 :00 every 8 Medical (eight) Branch hours. metoprolol 2019-11- No [id number] 25mg Take 1 U nivers tartrate 25 2-16 09-21 tablet by it y of mg tablet 00:00: 00:00 mouth 2 [place] 00 :00 (two) Medical times Branch daily. ibuprofen 2019-11- No [id number] 800mg Take 1 [facility] 800 mg 2-16 12-31 tablet by ity of tablet 00:00: 05:59 mouth [place] 00 :00 every 6 Medical (six) Branch hours as needed for Pain (scale 1-3) for up to 14 days. proMETHazin 2019-11 2020- No [id number] 25mg Take 1 [facility] e 25 mg 2-16 12-31 tablet by ity of tablet 00:00: 05:59 mouth [place] 00 :00 every 8 Medical (eight) Branch hours as needed for Nausea and Vomiting (N/V) for up to 14 days. ibuprofen 2019-11- No [id number] 800mg Take 1 [facility] 800 mg 2-16 12-31 tablet by ity of tablet 00:00: 05:59 mouth [place] 00 :00 every 6 Medical (six) Branch hours as needed for Pain (scale 1-3) for up to 14 days. proMETHazin 2019-11- No [id number] 25mg Take 1 [facility] e 25 mg 2-16 12-31 tablet by ity of tablet 00:00: 05:59 mouth [place] 00 :00 every 8 Medical (eight) Branch hours as needed for Nausea and Vomiting (N/V) for up to 14 days. ibuprofen 2019-11- No [id number] 800mg Take 1 [facility] 800 mg 2-16 12-31 tablet by ity of tablet 00:00: 05:59 mouth [place] 00 :00 every 6 Medical (six) Branch hours as needed for Pain (scale 1-3) for up to 14 days. proMETHazin 2019-2019- No [id number] 25mg Take 1 [facility] e 25 mg 2-16 12-31 tablet by ity of tablet 00:00: 05:59 mouth [place] 00 :00 every 8 Medical (eight) Branch hours as needed for Nausea and Vomiting (N/V) for up to 14 days. ibuprofen 2019-11- No [id number] 800mg Take 1 [facility] 800 mg 2-16 12-31 tablet by ity of tablet 00:00: 05:59 mouth [place] 00 :00 every 6 Medical (six) Branch hours as needed for Pain (scale 1-3) for up to 14 days. proMETHazin 2019- 2020- No [id number] 25mg Take 1 [facility] e 25 mg 2-16 12-31 tablet by ity of tablet 00:00: 05:59 mouth [place] 00 :00 every 8 Medical (eight) Branch hours as needed for Nausea and Vomiting (N/V) for up to 14 days. ibuprofen 2019- 2020- No [id number] 800mg Take 1 [facility] 800 mg 2-16 12-31 tablet by ity of tablet 00:00: 05:59 mouth [place] 00 :00 every 6 Medical (six) Branch hours as needed for Pain (scale 1-3) for up to 14 days. proMETHazin 2019- 2020- No [id number] 25mg Take 1 [facility] e 25 mg 2-16 12-31 tablet by ity of tablet 00:00: 05:59 mouth [place] 00 :00 every 8 Medical (eight) Branch hours as needed for Nausea and Vomiting (N/V) for up to 14 days. ibuprofen 2019-11- No [id number] 800mg Take 1 [facility] 800 mg 2-16 12-31 tablet by ity of tablet 00:00: 05:59 mouth [place] 00 :00 every 6 Medical (six) Branch hours as needed for Pain (scale 1-3) for up to 14 days. proMETHazin 2019-11- No [id number] 25mg Take 1 [facility] e 25 mg 2-16 12-31 tablet by ity of tablet 00:00: 05:59 mouth [place] 00 :00 every 8 Medical (eight) Branch hours as needed for Nausea and Vomiting (N/V) for up to 14 days. ibuprofen 2019-11 2020- No [id number] 800mg Take 1 [facility] 800 mg 2-16 12-31 tablet by ity of tablet 00:00: 05:59 mouth [place] 00 :00 every 6 Medical (six) Branch hours as needed for Pain (scale 1-3) for up to 14 days. proMETHazin 2019- 2020- No [id number] 25mg Take 1 [facility] e 25 mg 2-16 12-31 tablet by ity of tablet 00:00: 05:59 mouth [place] 00 :00 every 8 Medical (eight) Branch hours as needed for Nausea and Vomiting (N/V) for up to 14 days. ALPRAZolam 2019- 2020- No [id number] 2mg Take 1 [facility] 2 mg tablet 2-16 12-24 tablet by it y of 00:00: 05:59 mouth 2 [place] 00 :00 (two) Medical times Branch daily for 7 days. HYDROcodone 2019-11- No [id number] 1{tbl} Take 1 U nivers -acetaminop 2-16 12-24 tablet by it y of hen (Revokom) 00:00: 05:59 mouth [place] 10-325 mg 00 :00 every 6 Medical tablet (six) Branch hours as needed for Pain (scale 7-10) for up to 7 days. Indication s: acute pain ALPRAZolam 2019-2019- No [id number] 2mg Take 1 [facility] 2 mg tablet 2-16 12-24 tablet by it y of 00:00: 05:59 mouth 2 [place] 00 :00 (two) Medical times Branch daily for 7 days. HYDROcodone 2019-11 No [id number] 1{tbl} Take 1 U nivers -acetaminop 2-16 12-24 tablet by it y of hen (Revokom) 00:00: 05:59 mouth [place] 10-325 mg 00 :00 every 6 Medical tablet (six) Branch hours as needed for Pain (scale 7-10) for up to 7 days. Indication s: acute pain ALPRAZolam 2019-11- No [id number] 2mg Take 1 [facility] 2 mg tablet 2-16 12-24 tablet by it y of 00:00: 05:59 mouth 2 [place] 00 :00 (two) Medical times Branch daily for 7 days. HYDROcodone 2019-11 No [id number] 1{tbl} Take 1 U nivers -acetaminop 2-16 12-24 tablet by it y of hen (Revokom) 00:00: 05:59 mouth [place] 10-325 mg 00 :00 every 6 Medical tablet (six) Branch hours as needed for Pain (scale 7-10) for up to 7 days. Indication s: acute pain ALPRAZolam 2019-11- No [id number] 2mg Take 1 [facility] 2 mg tablet 2-16 12-24 tablet by it y of 00:00: 05:59 mouth 2 [place] 00 :00 (two) Medical times Branch daily for 7 days. HYDROcodone 2019-11 No [id number] 1{tbl} Take 1 U nivers -acetaminop 2-16 12-24 tablet by it y of hen (Revokom) 00:00: 05:59 mouth [place] 10-325 mg 00 :00 every 6 Medical tablet (six) Branch hours as needed for Pain (scale 7-10) for up to 7 days. Indication s: acute pain ciprofloxac 2019-2019- No [id number] 500mg Take 1 [facility] in HCl 500 2-16 12-16 tablet by ity of mg tablet 00:00: 00:00 mouth [place] 00 :00 every 12 Medical (twelve) Branch hours for 14 days. metroNIDAZO 2019-11- No [id number] 500mg Take 1 [facility] LE 500 mg 2-16 12-16 tablet by ity of tablet 00:00: 00:00 mouth [place] 00 :00 every 8 Medical (eight) Branch hours for 14 days. ciprofloxac 2019-2019- No [id number] 500mg Take 1 [facility] in HCl 500 2-16 12-16 tablet by ity of mg tablet 00:00: 00:00 mouth [place] 00 :00 every 12 Medical (twelve) Branch hours. metroNIDAZO 2019-11- No [id number] 500mg Take 1 [facility] LE 500 mg 2-16 12-16 tablet by ity of tablet 00:00: 00:00 mouth [place] 00 :00 every 8 Medical (eight) Branch hours. metoprolol 2019-11- No [id number] 25mg Take 1 U nivers tartrate 25 2-16 12-16 tablet by it y of mg tablet 00:00: 00:00 mouth 2 [place] 00 :00 (two) Medical times Branch daily. metroNIDAZO 2019-11 Yes 500mg 500 mg, Un thor LE (FLAGYL) 2-15 Oral, Q8H, it y of tablet 500 20:00: First dose [place] mg 00 on [facility] 10/29/20 Branch at 1400, Until Discontinu ed, Routine
Reason for Anti-Infec tive: Empiric Therapy for Suspected Infection< br>Empiric Therapy Site: Abdominal& lt;br>Dura tion of therapy: 7 days magnesium 2019-11- No 2g 2 g, IV Univ ers sulfate in -15 -15 Piggyback, it y of water 2 17:45: 18:42 ONCE, 1 [place] gram/50 mL 00 :00 dose, [facility] ryann (4 %) 10/29/20 Branch infusion 2 at 1145, g Routine HYDROmorpho 2019-11 Yes 2mg 2 mg, Unive rs ne 2-15 Oral, ity of (DILAUDID) 15:19: Q4HPRN, [place] tablet 2 mg 37 Starting Medi ryann [facility] 10/29/20 at 0919, Until Discontinu ed, Routine, Pain (scale 7-10) KCL 2019-11 Yes 40meq 40 mEq, Univers mEq/15 mL 2-15 Oral, ity of solution 40 15:00: DAILY, [place] mEq 00 First dose Medical on [facility] 10/29/20 at 0900, Until Discontinu ed, Routine HYDROmorpho 2019-11- No .5mg 0.5 mg, Un thor ne 2-15 12-15 Slow IV ity of (DILAUDID) 07:37: 14:36 Push, [place] injection 39 :49 Q4HPRN, Medical 0.5 mg Starting Branch [facility] 10/29/20 at 0137, Until [facility] 10/29/20 at 0836, Routine, Pain (scale 7-10)
U se approved by (Faculty): GENERAL SURGERY
General surgeon approving: Phatak KCL 2019-11- No 40meq 40 mEq, Univers (KLOR-CON 12-29- Oral, ity of M20) tablet 15:00: 13:15 DAILY, [place] 40 mEq 00 :49 First dose Medical on [facility] 10/28/20 at 0900, Until Discontinu ed, Routine KCL 2019-11 2020- No 20meq 20 mEq, Univers (KLOR-CON -28 10-14 Oral, ity of M20) tablet 07:45: 06:54 ONCE, 1 [place] 20 mEq 00 :00 dose, [facility] 10/28/20 Branch at 0145, Routine magnesium 2019-11 2020- No 2g 2 g, IV Univ ers sulfate in 2-27 10-14 Piggyback, it y of water 2 18:30: 00:58 ONCE, 1 [place] gram/50 mL 00 :00 dose, [facility] ryann (4 %) 10/27/20 Branch infusion 2 [...] No .5mg 0.5 mg, Un thor ne 2- 12-13 Slow IV ity of (DILAUDID) 00:32: [...] on Fri Medical mg/15 mL 10/18/20 at [facility] solution 10 2000, mg Until Discontinu ed, Routine HYDROcodone 2019-11 Yes [id number] 1{tbl} Take 1 Un thor -acetaminop 2-05 tablet by ity of hen (NORCO) 00:00: mouth [place] 10-325 mg 00 every 6 Medical tablet (six) Branch hours as needed for Pain (scale 7-10). Indication s: acute pain ibuprofen 2019-11 Yes [id number] 600mg Take 1 U nivers 600 mg 2-05 tablet by ity of tablet 00:00: mouth [place] 00 every 6 Medical (six) Branch hours as needed for Pain (scale 1-3). proMETHazin 2019-11 Yes [id number] 25mg Take 1 [facility] e 25 mg [...] Indication s: acute pain ibuprofen 2019-11 Yes [id number] 600mg Take 1 U nivers 600 mg 2-05 tablet by ity of tablet 00:00: mouth [place] 00 every 6 Medical (six) Branch hours as needed for Pain (scale 1-3). proMETHazin 2019-11 Yes [id number] 25mg Take 1 [facility] e 25 mg 2-05 tablet by ity of tablet 00:00: mouth [place] 00 every 8 Medical (eight) Branch hours as needed for Nausea and Vomiting (N/V). gabapentin 2019-11- No [id number] 300mg Take 1 [facility] 300 mg 2-05 12-20 capsule by ity of capsule 00:00: 05:59 mouth 3 [place] 00 :00 (three) Medical times Branch daily for 14 days. gabapentin 2019-11- No [id number] 300mg Take 1 [facility] 300 mg 2-05 [...] s: acute pain ALPRAZolam 2019-11 2020- No [id number] 2mg Take 1 [facility] 2 mg tablet 2-05 12-13 tablet by it y of 00:00: 05:59 mouth 2 [place] 00 :00 (two) Medical times Branch daily for 7 days. ALPRAZolam 2019-11- No [id number] 2mg Take 1 [facility] 2 mg tablet 2-05 12-13 tablet by it y of 00:00: 05:59 mouth 2 [place] 00 :00 (two) Medical times Branch daily for 7 days. simethicone 2019-11 2020- No [id number] 80mg Take 1 [facility] 80 mg 2-05 12-11 tablet by ity of chewable 00:00: 05:59 mouth [place] tablet 00 :00 after Medical meals and Branch at bedtime for 5 days. simethicone 2019-11 2020- No [id number] 80mg Take 1 [facility] 80 mg 2-05 12-11 tablet by ity of chewable 00:00: 05:59 mouth [place] tablet 00 :00 after Medical meals and Branch at bedtime for 5 days. ibuprofen 2019-11 2020- No [id number] 600mg Take 1 [facility] 600 mg 2-05 12-10 tablet by ity of tablet 00:00: 00:00 mouth [place] 00 :00 every 6 Medical (six) Branch hours as needed for Pain (scale 1-3). simethicone 2019- 2020- No [id number] 80mg Take 1 [facility] 80 mg 2-05 12-10 tablet by ity of chewable 00:00: 00:00 mouth [place] tablet 00 :00 after Medical meals and Branch at bedtime for 5 days. gabapentin 2019- 2020- No [id number] 300mg Take 1 [facility] 300 mg 2-05 12-10 capsule by ity of capsule 00:00: 00:00 mouth 3 [place] 00 :00 (three) Medical times Branch daily for 14 days. ALPRAZolam 2019-11- No [id number] 2mg Take 1 [facility] 2 mg tablet 12-20 12-10 tablet by it y of 00:00: 00:00 mouth 2 [place] 00 :00 (two) Medical times Branch daily for 7 days. proMETHazin 2019-11- No [id number] 25mg Take 1 [facility] e 25 mg 2- 12-10 tablet by ity of tablet 00:00: 00:00 mouth [place] 00 :00 every 8 Medical (eight) Branch hours as needed for Nausea and Vomiting (N/V). proMETHazin 2019-11- No [id number] 25mg Take 1 Univers e 25 mg -03 26-05 tablet by ity of tablet 00:00: 00:00 mouth [place] 00 :00 every 4 Medical (four) Branch hours as needed for Nausea and Vomiting (N/V) for up to 7 days. HYDROmorpho 2019-11 Yes 1mg 1 mg, Slow Univers ne 2-04 IV Push, ity of (DILAUDID) 02:56: Q6HPRN, [place] injection 1 33 Starting Medi ryann mg [facility] Branch 10/17/20 at 205, Until Discontinu ed, Routine, Pain (scale 7-10)
U se approved by (Faculty): GENERAL SURGERY
General surgeon approving: Darren Chun ALPRAZolam 2019-11 Yes .25mg 0.25 mg, Un thor (XANAX) 2-04 Oral, BID, ity of tablet 0.25 02:00: First dose [place] mg 00 on [facility] Medical 10/17/20 at Branch 2000, Until Discontinu ed, Routine HYDROcodone 2019-11- No 5mg 5 mg, Univ ers -acetaminop 2 12-04 Oral, Q4H, i ty of hen (HYCET) 22:00: 22:24 First dose [place] 7.5-325 00 :22 (after Medical mg/15 mL last Branch solution 5 modificati mg on) on [facility] 10/17/20 at 1600, Until Discontinu ed, Routine bisacodyL 2019-11 Yes 10mg 10 mg, Univer s (DULCOLAX) 2-03 Rectal, ity of suppository 03:00: QHSPRN, [place] 10 mg 00 Starting Medical Wed [place] 10/16/20 at 2100, Until Discontinu ed, Routine, [...] dose Medi ryann 1,000 mg on Wed [place] 10/16/20 at 1400, Until Discontinu ed, Routine [...] [place] 10 mg 00 :00 dose, Wed [facility] 10/16/20 at Branch 0945, Routine melatonin 2019-11 Yes 3mg 3 mg, Univers (MELATIN) 12-17 Oral, QHS, ity of tablet 3 mg 03:00: First dose [place] 00 on Wed [facility] 10/15/20 at Branch 2100, Until Discontinu ed, Routine acetaminoph 2019-11 2020- No 650mg 650 mg, U nivers en 12-16 Oral, Q8H, ity of (TYLENOL) 20:00: 14:59 First dose [place] 160 mg/5 mL 00 :29 on [facility] Medic l liquid 650 10/15/20 at [facility] mg 1400, Until Discontinu ed, Routine HYDROcodone 2019-11- No 5mg 5 mg, Univ ers -acetaminop 12-16 Oral, Q6H, i ty of hen (HYCET) 18:00: 19:51 First dose [place] 7.5-325 00 :24 (after Medical mg/15 mL last Branch solution 5 modificati mg on) on [facility] 10/15/20 at 1200, Until Discontinu ed, Routine HYDROMORPHO 2019-11- No Unive rs NE [employer] 12-16 ity of 6MG/30ML 17:00: 14:57 [place] 00 :48 Medical Branch NaCl 0.9% 2019-11 Yes 10mL 10 mL, Univer s (NS) 12-16 Slow IV ity of injection 16:51: Push, PRN, [place] 10 mL 43 Starting Medical [facility] 10/15/20 at 1051, Until Discontinu ed, Routine, line maintenanc e enoxaparin 2019-11 Yes 40mg 40 mg, Unive rs (LOVENOX) 12-16 Subcutaneo ity of injection 15:00: us, Q24H, [place] 40 mg 00 First dose Medical on [facility] 10/15/20 at 0900, Until Discontinu ed, Routine sennosides 2019-11- No 8.6mg 8.6 mg, Un thor (SENOKOT) 12-16 Oral, ity of tablet 8.6 15:00: 19:51 DAILY, [place] mg 00 :23 First dose Medical on [facility] 10/15/20 at 0900, Until Discontinu ed, Routine docusate 2019-11 2020- No 100mg 100 mg, Univ ers (COLACE) 12-16 Oral, ity of capsule 100 15:00: 19:51 DAILY, [place] mg 00 :23 First dose Medical on [facility] 10/15/20 at 0900, Until Discontinu ed, Routine HYDROcodone 2019-11- No 5mg 5 mg, Univ ers -acetaminop 12-16 Oral, ity of hen (HYCET) 14:06: 16:54 Q6HPRN, [place] 7.5-325 01 :51 Starting Medical mg/15 mL Tue Branch solution 5 10/15/20 at mg 0806, Until Tu10/15/20 at 1054, Routine, Pain (scale 4-6) proMETHazin 2019-11 Yes 25mg 25 mg, IV U nivers e 12-16 Piggyback, ity of (PHENERGAN) 03:57: Q8HPRN, [place] 25 mg in 05 Starting Medical NaCl 0.9% [facility] Branch (NS) 50 mL 10/14/20 IV at 2157, piggyback Until Discontinu ed, Routine, Nausea and Vomiting (N/V) HYDROMORPHO 2019-11 2020- No Unive rs NE [employer] 12-16 ity of 6MG/30ML 03:00: 16:54 [place] [...] Branch 10/14/20 at 1959, Until Wed10/14/20 at 2157, Routine, Itching naloxone 2019-11 Yes .1mg 0.1 [...] ity of (fixed 17:30: 01:59 [place] dose) [employer] 00 :31 Medical injection Branch lactated 2019-11- [...] IV Medical Infusion, Branch ONCE, 1 dose, Wed10/01/20 at 2330, LUISA acetaminoph 2019-11 Yes 2745 [...] Branch ease suspension opium 10 2019-11 Yes [id number] 1mL Take 1 mL [facility] mg/mL 1-13 by mouth ity of (morphine) 00:00: every 6 [place] tincture 00 (six) Medical hours. Branch opium 10 2019-11 Yes [id number] 1mL Take 1 mL [facility] mg/mL 1-13 by mouth ity of (morphine) 00:00: every 6 [place] tincture 00 (six) Medical hours. Branch opium 10 2019-11 Yes [id number] 1mL Take 1 mL [facility] mg/mL 1-13 by mouth ity of (morphine) 00:00: every 6 [place] tincture 00 (six) Medical hours. Branch opium 10 2019-11 Yes [id number] 1mL Take 1 mL [facility] mg/mL 1-13 by mouth ity of (morphine) 00:00: every 6 [place] tincture 00 (six) Medical hours. Branch opium 10 2019-11 Yes [id number] 1mL Take 1 mL [facility] mg/mL 1-13 by mouth ity of (morphine) 00:00: every 6 [place] tincture 00 (six) Medical hours. Branch opium 10 2019-11 Yes [id number] 1mL Take 1 mL [facility] mg/mL 1-13 by mouth ity of (morphine) 00:00: every 6 [place] tincture 00 (six) Medical hours. Branch opium 10 2019-11 Yes [id number] 1mL Take 1 mL [facility] mg/mL 1-13 by mouth ity of (morphine) 00:00: every 6 [place] tincture 00 (six) Medical hours. Branch opium 10 2019-11 Yes [id number] 1mL Take 1 mL [facility] mg/mL 1-13 by mouth ity of (morphine) 00:00: every 6 [place] tincture 00 (six) Medical hours. Branch opium 10 2019-11 Yes [id number] 1mL Take 1 mL [facility] mg/mL 1-13 by mouth ity of (morphine) 00:00: every 6 [place] tincture 00 (six) Medical hours. Branch opium 10 2019-11 Yes [id number] 1mL Take 1 mL [facility] mg/mL 1-13 by mouth ity of (morphine) 00:00: every 6 [place] tincture 00 (six) Medical hours. Branch opium 10 2019-11 Yes [id number] 1mL Take 1 mL [facility] mg/mL 1-13 by mouth ity of (morphine) 00:00: every 6 [place] tincture 00 (six) Medical hours. Branch opium 2019-11 Yes [id number] 1mL Take 1 mL [facility] mg/mL 1-13 by mouth ity of (morphine) 00:00: every 6 [place] tincture 00 (six) Medical hours. Branch opium 10 2019-11 Yes [id number] 1mL Take 1 mL [facility] mg/mL 1-13 by mouth ity of (morphine) 00:00: every 6 [place] tincture 00 (six) Medical hours. Branch opium 10 2019-11 Yes [id number] 1mL Take 1 mL [facility] mg/mL 1-13 by mouth ity of (morphine) 00:00: every 6 [place] tincture 00 (six) Medical hours. Branch opium 10 2019-11 Yes [id number] 1mL Take 1 mL [facility] mg/mL 1-13 by mouth ity of (morphine) 00:00: every 6 [place] tincture 00 (six) Medical hours. Branch opium 10 2019-11 Yes [id number] 1mL Take 1 mL [facility] mg/mL 1-13 by mouth ity of (morphine) 00:00: every 6 [place] tincture 00 (six) Medical hours. Branch opium 10 2019-11 Yes [id number] 1mL Take 1 mL [facility] mg/mL 1-13 by mouth ity of (morphine) 00:00: every 6 [place] tincture 00 (six) Medical hours. Branch opium 10 2019-11 Yes [id number] 1mL Take 1 mL [facility] mg/mL 1-13 by mouth ity of (morphine) 00:00: every 6 [place] tincture 00 (six) Medical hours. Branch opium 10 2019-11 Yes [id number] 1mL Take 1 mL [facility] mg/mL 1-13 by mouth ity of (morphine) 00:00: every 6 [place] tincture 00 (six) Medical hours. Branch opium 10 2019-11 Yes [id number] 1mL Take 1 mL [facility] mg/mL 1-13 by mouth ity of (morphine) 00:00: every 6 [place] tincture 00 (six) Medical hours. Branch opium 10 2019-11 Yes [id number] 1mL Take 1 mL [facility] mg/mL 1-13 by mouth ity of (morphine) 00:00: every 6 [place] tincture 00 (six) Medical hours. Branch opium 2019-11 Yes [id number] 1mL Take 1 mL [facility] mg/mL 1-13 by mouth ity of (morphine) 00:00: every 6 [place] tincture 00 (six) Medical hours. Branch opium 10 2019-11 Yes [id number] 1mL Take 1 mL [facility] mg/mL 1-13 by mouth ity of (morphine) 00:00: every 6 [place] tincture 00 (six) Medical hours. Branch opium 10 2019-11 Yes [id number] 1mL Take 1 mL [facility] mg/mL 1-13 by mouth ity of (morphine) 00:00: every 6 [place] tincture 00 (six) Medical hours. Branch opium 10 2019-11 Yes [id number] 1mL Take 1 mL [facility] mg/mL 1-13 by mouth ity of (morphine) 00:00: every 6 [place] tincture 00 (six) Medical hours. Branch opium 10 2019-11 Yes [id number] 1mL Take 1 mL [facility] mg/mL 1-13 by mouth ity of (morphine) 00:00: every 6 [place] tincture 00 (six) Medical hours. Branch opium 10 2019-11 Yes [id number] 1mL Take 1 mL [facility] mg/mL 1-13 by mouth ity of (morphine) 00:00: every 6 [place] tincture 00 (six) Medical hours. Branch opium 10 2019-11 Yes [id number] 1mL Take 1 mL [facility] mg/mL 1-13 by mouth ity of (morphine) 00:00: every 6 [place] tincture 00 (six) Medical hours. Branch opium 10 2019-11- No [id number] 1mL Take 1 mL Univers mg/mL 1-13 09-21 by mouth ity of (morphine) 00:00: 00:00 every 6 [place] tinct[place] 00 :00 (six) Medical hours. Branch psyllium 2019-11- No [id number] 1{packe Take 1 Univers 3.4 gram 1-13 12-14 t} Packet by ity o f packet 00:00: 05:59 mouth 3 [place] 00 :00 (three) Medical times Branch daily before meals for 30 days. psyllium 2019-11- No [id number] 1{packe Take 1 [facility] 3.4 gram 1-13 12-14 t} Packet by ity o f packet 00:00: 05:59 mouth 3 [place] 00 :00 (three) Medical times Branch daily before meals for 30 days. psyllium 2019-11- No [id number] 1{packe Take 1 [facility] 3.4 gram 1-13 12-14 t} Packet by ity o f packet 00:00: 05:59 mouth 3 [place] 00 :00 (three) Medical times Branch daily before meals for 30 days. psyllium 2019-11- No [id number] 1{packe Take 1 [facility] 3.4 gram 1-13 12-14 t} Packet by ity o f packet 00:00: 05:59 mouth 3 [place] 00 :00 (three) Medical times Branch daily before meals for 30 days. psyllium 2019-11- No [id number] 1{packe Take 1 [facility] 3.4 gram 1-13 12-14 t} Packet by ity o f packet 00:00: 05:59 mouth 3 [place] 00 :00 (three) Medical times Branch daily before meals for 30 days. psyllium 2019-11- No [id number] 1{packe Take 1 [facility] 3.4 gram 1-13 12-14 t} Packet by ity o f packet 00:00: 05:59 mouth 3 [place] 00 :00 (three) Medical times Branch daily before meals for 30 days. psyllium 2019-11- No [id number] 1{packe Take 1 [facility] 3.4 gram 11-27 12-14 t} Packet by ity o f packet 00:00: 05:59 mouth 3 [place] 00 :00 (three) Medical times Branch daily before meals for 30 days. psyllium 2019-11- No [id number] 1{packe Take 1 [facility] 3.4 gram -13 12-14 t} Packet by ity o f packet 00:00: 05:59 mouth 3 [place] 00 :00 (three) Medical times Branch daily before meals for 30 days. psyllium 2019-11- No [id number] 1{packe Take 1 [facility] 3.4 gram 11-27 12-14 t} Packet by ity o f packet 00:00: 05:59 mouth 3 [place] 00 :00 (three) Medical times Branch daily before meals for 30 days. psyllium 2019-11- No [id number] 1{packe Take 1 [facility] 3.4 gram 11-27 12-14 t} Packet by ity o f packet 00:00: 05:59 mouth 3 [place] 00 :00 (three) Medical times Branch daily before meals for 30 days. psyllium 2019-11- No [id number] 1{packe Take 1 [facility] 3.4 gram 11-27 12-14 t} Packet by ity o f packet 00:00: 05:59 mouth 3 [place] 00 :00 (three) Medical times Branch daily before meals for 30 days. psyllium 2019-11- No [id number] 1{packe Take 1 [facility] 3.4 gram 13 12-14 t} Packet by ity o f packet 00:00: 05:59 mouth 3 [place] 00 :00 (three) Medical times Branch daily before meals for 30 days. psyllium 2019-11- No [id number] 1{packe Take 1 [facility] 3.4 gram -13 12-14 t} Packet by ity o f packet 00:00: 05:59 mouth 3 [place] 00 :00 (three) Medical times Branch daily before meals for 30 days. psyllium 2019-11- No [id number] 1{packe Take 1 [facility] 3.4 gram 1-13 12-14 t} Packet by ity o f packet 00:00: 05:59 mouth 3 [place] 00 :00 (three) Medical times Branch daily before meals for 30 days. psyllium 2019-11- No [id number] 1{packe Take 1 [facility] 3.4 gram 1-13 12-10 t} Packet by ity o f packet 00:00: 00:00 mouth 3 [place] 00 :00 (three) Medical times Branch daily before meals for 30 days. dextroamphe 2019-11- No 30mg Take 30 mg [facility] tamine-amph 1- 11-04 by mouth 2 i ty of [...] at 2000, Until Discontinu ed, Routine HYDROmorpho 2019-11- No .5mg 0.5 mg, Un thor ne 11-18 Slow IV ity of (DILAUDID) 01:15: 00:26 Push, [place] injection 00 :00 ONCE, 1 Medical 0.5 mg dose, Wed09/17/20 at 1915, Routine
Use approved by (Faculty): [...] Indication s: acute pain proMETHazin 2019-11- No [id number] 25mg Take 1 [facility] e 25 mg 1-04 11-25 tablet by ity of tablet 00:00: 05:59 mouth [place] 00 :00 every 6 Medical (six) Branch hours as needed for Nausea and Vomiting (N/V) for up to 20 days. proMETHazin 2019-11- No [id number] 25mg Take 1 Univers e 25 mg 1-04 11-25 tablet by ity of tablet 00:00: 05:59 mouth [place] 00 :00 every 6 Medical (six) Branch hours as needed for Nausea and Vomiting (N/V) for up to 20 days. proMETHazin 2019-11- No [id number] 25mg Take 1 Univers e 25 mg 1-04 11-25 tablet by ity of tablet 00:00: 05:59 mouth [place] 00 :00 every 6 Medical (six) Branch hours as needed for Nausea and Vomiting (N/V) for up to 20 days. proMETHazin 2019-11- No [id number] 25mg Take 1 Univers e 25 mg 1-04 11-25 tablet by ity of tablet 00:00: 05:59 mouth [place] 00 :00 every 6 Medical (six) Branch hours as needed for Nausea and Vomiting (N/V) for up to 20 days. proMETHazin 2019-11- No [id number] 25mg Take 1 [facility] e 25 mg 1-04 11-25 tablet by ity of tablet 00:00: 05:59 mouth [place] 00 :00 every 6 Medical (six) Branch hours as needed for Nausea and Vomiting (N/V) for up to 20 days. proMETHazin 2019-11- No [id number] 25mg Take 1 Univers e 25 mg 1-04 11-25 tablet by ity of tablet 00:00: 05:59 mouth [place] 00 :00 every 6 Medical (six) Branch hours as needed for Nausea and Vomiting (N/V) for up to 20 days. proMETHazin 2019-11- No [id number] 25mg Take 1 Univers e 25 mg 1-04 11-25 tablet by ity of tablet 00:00: 05:59 mouth [place] 00 :00 every 6 Medical (six) Branch hours as needed for Nausea and Vomiting (N/V) for up to 20 days. proMETHazin 2019-11- No [id number] 25mg Take 1 [facility] e 25 mg 1-04 11-25 tablet by ity of tablet 00:00: 05:59 mouth [place] 00 :00 every 6 Medical (six) Branch hours as needed for Nausea and Vomiting (N/V) for up to 20 days. proMETHazin 2019-11- No [id number] 25mg Take 1 [facility] e 25 mg 1-04 11-25 tablet by ity of tablet 00:00: 05:59 mouth [place] 00 :00 every 6 Medical (six) Branch hours as needed for Nausea and Vomiting (N/V) for up to 20 days. proMETHazin 2019-11- No [id number] 25mg Take 1 [facility] e 25 mg 1-04 11-25 tablet by ity of tablet 00:00: 05:59 mouth [place] 00 :00 every 6 Medical (six) Branch hours as needed for Nausea and Vomiting (N/V) for up to 20 days. proMETHazin 2019-11- No [id number] 25mg Take 1 [facility] e 25 mg 1-04 11-25 tablet by ity of tablet 00:00: 05:59 mouth [place] 00 :00 every 6 Medical (six) Branch hours as needed for Nausea and Vomiting (N/V) for up to 20 days. proMETHazin 2019-11- No [id number] 25mg Take 1 [facility] e 25 mg 1-04 11-25 tablet by ity of tablet 00:00: 05:59 mouth [place] 00 :00 every 6 Medical (six) Branch hours as needed for Nausea and Vomiting (N/V) for up to 20 days. proMETHazin 2019-11- No [id number] 25mg Take 1 [facility] e 25 mg 1-04 11-25 tablet by ity of tablet 00:00: 05:59 mouth [place] 00 :00 every 6 Medical (six) Branch hours as needed for Nausea and Vomiting (N/V) for up to 20 days. proMETHazin 2019-11- No [id number] 25mg Take 1 Univers e 25 mg [...] :00 ONCE, 1 Medical 0.5 mg dose, [facility] Branch 09/16/20 at 1345, Routine
Use approved by (Faculty): [employer] PROVIDER HYDROcodone 2019-11 Yes 2{tbl} 2 tablet, Univers -acetaminop 11-16 Oral, ity of hen (NORCO 18:45: Q6HPRN, [place] 5) 5-325 mg 00 Starting Medi ryann tablet 2 Wed [place] tablet 09/16/20 at 1245, Until Discontinu ed, Routine, Pain (scale 4-6), Pain (scale 7-10) proMETHazin 2019-11 Yes 25mg 25 mg, IV U nivers e 11-16 Piggyback, ity of (PHENERGAN) 18:30: Q6HPRN, [place] 25 mg in 00 Starting Medical NaCl 0.9% Wed [place] (NS) 50 mL 09/16/20 at IV 1230, [...] 19:15: First dose [place] SINGLES) 00 on [facility] Medical 3.4 gram 09/14/20 Branch packet 1 at 1415, Packet Until Discontinu ed, Routine lactobacill 2019-11 Yes 1{tbl} 1 tablet, Univers us 0-31 Oral, TID, ity of acidophilus 19:15: First dose [place] (ACIDOPHILL 00 on [facility] Medica l US) 25 09/14/20 Branch million at 1415, cell -100 Until mg captab 1 Discontinu tablet ed, Routine magnesium 2019-11 2020- No 400mg 400 mg, Uni vers oxide 009-14 Oral, ONCE ity of (MAG-OX 18:15: 19:50 NOW, 1 [place] 400) tablet 00 :00 dose, [facility] Med ical 400 mg 09/14/20 Branch at 1315, Routine HYDROcodone 2019-11 2020- No 1{tbl} 1 tablet, [facility] [place] [facility] -acetaminop 0 11-01 Oral, ity of hen (NORCO) 14:35: 07:40 Q6HPRN, [place] 10-325 mg 18 :22 Starting Medica l tablet 1 [facility] Branch tablet 09/14/20 at 0935, Until 09/15/20 at 0140, Routine, Pain (scale 7-10) diphenhydrA 2019-11 Yes 12.5mg 12.5 mg, Univers MINE 0 Slow IV ity of (BENADRYL) 14:26: Push, [place] injection 59 Q6HPRN, Medical 12.5 mg Starting Branch 09/14/20 at 0926, Until Discontinu ed, Routine, Itching pantoprazol 2019-11 Yes 40mg 40 mg, Univ ers e 0- Oral, ity of (PROTONIX) 14:00: DAILY, [place] EC tablet 00 First dose Medi ryann 40 mg on Sat Branch 09/14/20 at 0900, Until Discontinu ed ALPRAZolam 2019-11 Yes .5mg 0.5 mg, Univ ers (XANAX) 0 Oral, ity of tablet 0.5 13:00: TIDPRN, [place] mg 00 Starting Medical Sat Branch 09/14/20 at 0800, Until Discontinu ed, Routine, anxiety clindamycin 2019-11 2020- No 600mg 600 mg, IV Univers in [...] heparin 2019-11 Yes 5000U 5,000 Univers (porcine) Units, ity of injection 03:00: Subcutaneo [place] 5,000 Units 00 us, Q8H, Medi ryann First dose Branch (after last modificati on) on Wed09/13/20 at 2200, Until Discontinu ed, Routine proMETHazin 2019-11- No 12.5mg 12.5 mg, Univers e 09-16 IV ity of (PHENERGAN) 01:23: 18:35 Piggyback, [place] 12.5 mg in 35 :16 Q4HPRN, Medica l NaCl 0.9% Starting Branch (NS) 50 mL Fri IV 09/13/20 piggyback at 202, Until 09/16/20 at 1235, Routine, Nausea and Vomiting (N/V) metoprolol 2019-11- No 25mg 25 mg, Univ ers tartrate 09-17 Oral, BID, ity of (LOPRESSOR) 01:00: 23:43 First dose [place] tablet 25 00 :41 on Fri Medical mg 09/13/20 Branch at 2000, Until Discontinu ed, Routine acetaminoph 2019-11 Yes 650mg 650 mg, Un thor en 0-30 Oral, Q6H, ity of (TYLENOL) 23:00: First dose [place] tablet 650 00 on Fri Medical mg 09/13/20 Branch at 1800, Until Discontinu ed, Routine proMETHazin 2019-11 2020- No 12.5mg 12.5 mg, Univers e 0-30 10-31 Oral, ity of (PHENERGAN) 21:52: 01:23 Q6HPRN, [place] tablet 12.5 52 :46 Starting Medi ryann mg Fri Branch 09/13/20 at 165, Until Wed09/13/20 at 2022, Routine, Nausea and [...] IV ity of (BENADRYL) 21:14: 14:27 Push, [place] injection 00 :41 Q6HPRN, Medical 12.5 mg Starting Branch Wed09/13/20 at 1614, Until 09/14/20 at 0927, Routine, Itching acetaminoph 2019-11 Yes 650mg 650 mg, Un thor en 0-30 Oral, ity of (TYLENOL) 20:56: Q6HPRN, [place] tablet 650 54 Starting Medic al mg Wed Branch 09/13/20 at 1556, Until Discontinu ed, [...] Medical 09/13/20 Branch at 1145, STAT ALPRAZolam 2020-1 Yes 2mg Take 2 mg [...] [place] 56 times Medical daily. Branch dextroamphe 2020- Yes [...] [place] 56 times Medical daily. Branch dextroamphe 2019- Yes 30mg Take 30 mg Univers tamine-amph 0-28 by mouth 2 it y of etamine 01:28: (two) [place] (ADDERALL) 56 times Medical 30 mg daily. Branch tablet Pantoprazol 2019- Yes 40mg Take 40 mg Univers e 0-28 by mouth 2 ity of (PROTONIX) 01:28: (two) [place] 40 mg 56 times Medical delayed-rel daily. Branch ease suspension HYDROcodone 2019-11- No [id number] 1{tbl} Take 1 [...] 4 mg, Slow Un thor injection 4 009-01 IV Push, ity of mg 11:00: 09:55 [...] :00 ONCE, 1 Medical 25 mg dose, [place] Branch 09/01/20 at 0300, STAT proMETHazin 2019-11- No 25mg 25 mg, IV Univers e 0-18 18 Piggyback, ity of (PHENERGAN) 08:00: 08:00 ONCE, 1 [place] 25 mg in 00 :00 dose, [place] Medica l NaCl 0.9% 09/01/20 Branch (NS) 50 mL at 0300, piggyback 50 mL morpHINE 2019-11 2020- No 4mg 4 mg, Slow Un thor injection 4 0-18 18 IV Push, ity of mg 08:00: 07:22 ONCE, 1 [place] 00 :00 dose, [facility] 09/01/20 Branch at 0300, STAT iohexol 2019-11 2020- No 60mL 60 mL, Univers (OMNIPAQUE 0-10 10-10 Intravenou it y of 350 BULK-75 01:45: 01:45 s, ONCE, 1 [place] mL) 00 :00 dose, Fri Medical injection 08/23/20 at Bran ch 60 mL 2045, Routine diphenhydrA 2019-11 2020- No 12.5mg 12.5 mg, Univers MINE 0-10 10-09 Slow IV ity of (BENADRYL) 00:00: 23:44 Push, [place] injection 00 :00 ONCE, 1 Medical 12.5 mg dose, [facility] 08/23/20 at 1900, STAT morpHINE 2019-11 2020- No 4mg 4 mg, Slow Un thor injection 4 0-10 - IV Push, ity of mg 00:00: 23:43 ONCE, 1 [place] 00 :00 dose, [facility] 08/23/20 at Branch 1900, STAT NaCl 0.9% 2019-11 2020- No 1000mL at 999 Uni vers (NS) bolus 0-09 10-10 mL/hr, ity of infusion 23:45: 00:00 1,000 mL, [place] 1,000 mL 00 :00 IV Medical Infusion, Branch ONCE, 1 dose, 08/23/20 at 1845, STAT [...] Sat Medica l NaCl 0.9% 08/17/20 at [facility] (NS) 50 mL 2314, 50 piggyback mL morpHINE 2019-11 No 4mg 4 mg, Slow Un thor injection 4 0-04 10-04 IV Push, ity of mg 04:15: 03:25 ONCE, 1 [place] 00 :00 dose, Sat Medical 08/17/20 at Branch 2315, STAT NaCl 0.9% 2019-11- No 500mL at 999 Univ ers (NS) bolus 0-04 10-04 mL/hr, 500 it y of infusion 04:15: 05:26 mL, IV [place] 500 mL 00 :00 Infusion, Medical ONCE, 1 Branch dose, 08/17/20 at 2314, STAT iohexol 2019-11 No 119mL 119 mL, Unive rs (OMNIPAQUE [...] Medical CONTINUOUS Branch , Starting 08/17/20 at 2114, Until Discontinu ed, Routine proMETHazin 2019-11 No 25mg 25 mg, IV Univers e 0-04 10- Piggyback, ity of (PHENERGAN) 02:15: 01:24 ONCE, 1 [place] 25 mg in 00 :00 dose, Sat Medica l NaCl 0.9% 08/17/20 at [facility] (NS) 50 mL 2114, 50 piggyback mL morpHINE 2019-11 No 4mg 4 mg, Slow Un thor injection 4 0-04 10-04 IV Push, ity of mg 02:15: 01:24 ONCE, 1 [place] 00 :00 dose, Sat Medical 08/17/20 at Branch 2114, STAT diphenhydrA 2020-1 2020- No 25mg 25 mg, Uni vers MINE 0-04 10-04 Slow IV ity of (BENADRYL) 02:15: 01:24 Push, [place] injection 00 :00 ONCE, 1 Medical 25 mg dose, Sat Branch 08/17/20 at 2115, STAT proMETHazin 2019-11 Yes [id number] 25mg Take 1 Univers e 25 mg 0-03 tablet by ity of tablet 00:00: mouth [place] 00 every 6 Medical (six) Branch hours as needed for Nausea and Vomiting (N/V). proMETHazin 2019-11 Yes [id number] 25mg Take 1 Univers e 25 mg 0-03 tablet by ity of tablet 00:00: mouth [place] 00 every 6 Medical (six) Branch hours as needed for Nausea and Vomiting (N/V). proMETHazin 2019-11 Yes [id number] 25mg Take 1 Univers e 25 mg 0-03 tablet by ity of tablet 00:00: mouth [place] 00 every 6 Medical (six) Branch hours as needed for Nausea and Vomiting (N/V). proMETHazin 2019-11 Yes [id number] 25mg Take 1 Univers e 25 mg 0-03 tablet by ity of tablet 00:00: mouth [place] 00 every 6 Medical (six) Branch hours as needed for Nausea and Vomiting (N/V). proMETHazin 2019-11 Yes [id number] 25mg Take 1 Univers e 25 mg 0-03 tablet by ity of tablet 00:00: mouth [place] 00 every 6 Medical (six) Branch hours as needed for Nausea and Vomiting (N/V). proMETHazin 2019-11 Yes [id number] 25mg Take 1 Univers e 25 mg 0-03 tablet by ity of tablet 00:00: mouth [place] 00 every 6 Medical (six) Branch hours as needed for Nausea and Vomiting (N/V). proMETHazin 2019- Yes [id number] 25mg Take 1 Univers e 25 mg 0-03 tablet by ity of tablet 00:00: mouth [place] 00 every 6 Medical (six) Branch hours as needed for Nausea and Vomiting (N/V). proMETHazin 2019-11 Yes [id number] 25mg Take 1 Univers e 25 mg 0-03 tablet by ity of tablet 00:00: mouth [place] 00 every 6 Medical (six) Branch hours as needed for Nausea and Vomiting (N/V). proMETHazin 2020-1 Yes [id number] 25mg Take 1 Univers e 25 mg 0-03 tablet by ity of tablet 00:00: mouth [place] 00 every 6 Medical (six) Branch hours as needed for Nausea and Vomiting (N/V). proMETHazin 2020-1 Yes [id number] 25mg Take 1 Univers e 25 mg 0-03 tablet by ity of tablet 00:00: mouth [place] 00 every 6 Medical (six) Branch hours as needed for Nausea and Vomiting (N/V). proMETHazin 2019- Yes [id number] 25mg Take 1 Univers e 25 mg 0-03 tablet by ity of tablet 00:00: mouth [place] 00 every 6 Medical (six) Branch hours as needed for Nausea and Vomiting (N/V). proMETHazin 2019- Yes [id number] 25mg Take 1 Univers e 25 mg 0-03 tablet by ity of tablet 00:00: mouth [place] 00 every 6 Medical (six) Branch hours as needed for Nausea and Vomiting (N/V). proMETHazin 2019- Yes [id number] 25mg Take 1 Univers e 25 mg 0-03 tablet by ity of tablet 00:00: mouth [place] 00 every 6 Medical (six) Branch hours as needed for Nausea and Vomiting (N/V). proMETHazin 2019- Yes [id number] 25mg Take 1 Univers e 25 mg 0-03 tablet by ity of tablet 00:00: mouth [place] 00 every 6 Medical (six) Branch hours as needed for Nausea and Vomiting (N/V). proMETHazin 2019- Yes [id number] 25mg Take 1 Univers e 25 mg 0-03 tablet by ity of tablet 00:00: mouth [place] 00 every 6 Medical (six) Branch hours as needed for Nausea and Vomiting (N/V). proMETHazin 2019-1 Yes [id number] 25mg Take 1 Univers e 25 mg 0-03 tablet by ity of tablet 00:00: mouth [place] 00 every 6 Medical (six) Branch hours as needed for Nausea and Vomiting (N/V). proMETHazin 2020-1 Yes [id number] 25mg Take 1 Univers e 25 mg 0-03 tablet by ity of tablet 00:00: mouth [place] 00 every 6 Medical (six) Branch hours as needed for Nausea and Vomiting (N/V). proMETHazin 2019-1 Yes [id number] 25mg Take 1 Univers e 25 mg 0-03 tablet by ity of tablet 00:00: mouth [place] 00 every 6 Medical (six) Branch hours as needed for Nausea and Vomiting (N/V). proMETHazin 2020-1 Yes [id number] 25mg Take 1 Univers e 25 mg 0-03 tablet by ity of tablet 00:00: mouth [place] 00 every 6 Medical (six) Branch hours as needed for Nausea and Vomiting (N/V). proMETHazin 2020-1 2020- No [id number] 25mg Take 1 Univers e 25 mg [...] s tablet 2 mg 00 Starting [facility]i [facility] Branch 08/01/20 at 0700, Until Discontinu ed, Routine, Pain (scale 7-10) ibuprofen 2020-0 Yes [id number] 600mg Take 1 Univers 600 mg 9-17 tablet by ity of tablet 00:00: mouth [place] 00 every 6 Medical (six) Branch hours. loperamide 2020-0 Yes [id number] 2mg Take 1 Univers 2 mg 9-17 capsule by ity of capsule 00:00: mouth [place] 00 daily. Medical Branch methocarbam 2020-0 Yes [id number] 500mg Take 1 Univers oL 500 mg 9-17 tablet by ity o f tablet 00:00: mouth 4 [place] 00 (four) Medical times Branch daily. ibuprofen 2020-0 Yes [id number] 600mg Take 1 [facility] 600 mg 9-17 tablet by ity of tablet 00:00: mouth [place] 00 every 6 Medical (six) Branch hours. loperamide 2020-0 Yes [id number] 2mg Take 1 Univers 2 mg 9-17 capsule by ity of capsule 00:00: mouth [place] 00 daily. Medical Branch methocarbam 2020-0 Yes [id number] 500mg Take 1 Univers oL 500 mg 9-17 tablet by ity o f tablet 00:00: mouth 4 [place] 00 (four) Medical times Branch daily. ibuprofen 2020-0 Yes [id number] 600mg Take 1 [facility] 600 mg 9-17 tablet by ity of tablet 00:00: mouth [place] 00 every 6 Medical (six) Branch hours. loperamide 2020-0 Yes [id number] 2mg Take 1 Univers 2 mg 9-17 capsule by ity of capsule 00:00: mouth [place] 00 daily. Medical Branch methocarbam 2020-0 Yes [id number] 500mg Take 1 Univers oL 500 mg 9-17 tablet by ity o f tablet 00:00: mouth (four) Medical times Branch daily. ibuprofen 2020-0 Yes [id number] 600mg Take 1 [facility] 600 mg 9-17 tablet by ity of tablet 00:00: mouth [place] 00 every 6 Medical (six) Branch hours. loperamide 2020-0 Yes [id number] 2mg Take 1 Univers 2 mg 9-17 capsule by ity of capsule 00:00: mouth [place] 00 daily. Medical Branch methocarbam 2020-0 Yes [id number] 500mg Take 1 Univers oL 500 mg 9-17 tablet by ity o f tablet 00:00: mouth (four) Medical times Branch daily. ibuprofen 2020-0 Yes [id number] 600mg Take 1 [facility] 600 mg 9-17 tablet by ity of tablet 00:00: mouth [place] 00 every 6 Medical (six) Branch hours. loperamide 2020-0 Yes [id number] 2mg Take 1 Univers 2 mg 9-17 capsule by ity of capsule 00:00: mouth [place] 00 daily. Medical Branch methocarbam 2020-0 Yes [id number] 500mg Take 1 Univers oL 500 mg 9-17 tablet by ity o f tablet 00:00: mouth (four) Medical times Branch daily. ibuprofen 2020-0 Yes [id number] 600mg Take 1 [facility] 600 mg 9-17 tablet by ity of tablet 00:00: mouth [place] 00 every 6 Medical (six) Branch hours. loperamide 2020-0 Yes [id number] 2mg Take 1 Univers 2 mg 9-17 capsule by ity of capsule 00:00: mouth [place] 00 daily. Medical Branch methocarbam 2020-0 Yes [id number] 500mg Take 1 Univers oL 500 mg 9-17 tablet by ity o f tablet 00:00: mouth (four) Medical times Branch daily. ibuprofen 2020-0 Yes [id number] 600mg Take 1 [facility] 600 mg 9-17 tablet by ity of tablet 00:00: mouth [place] 00 every 6 Medical (six) Branch hours. loperamide 2020-0 Yes [id number] 2mg Take 1 Univers 2 mg 9-17 capsule by ity of capsule 00:00: mouth 00 daily. Medical Branch methocarbam 2020-0 Yes [id number] 500mg Take 1 Univers oL 500 mg 9-17 tablet by ity o f tablet 00:00: mouth 00 (four) Medical times Branch daily. ibuprofen 2020-0 Yes [id number] 600mg Take 1 [facility] 600 mg 9-17 tablet by ity of tablet 00:00: mouth 00 every 6 Medical (six) Branch hours. loperamide 2020-0 Yes [id number] 2mg Take 1 [facility] 2 mg 9-17 capsule by ity of capsule 00:00: mouth 00 daily. Medical Branch methocarbam 2020-0 Yes [id number] 500mg Take 1 Univers oL 500 mg 9-17 tablet by ity o f tablet 00:00: mouth (four) Medical times Branch daily. ibuprofen 2020-0 Yes [id number] 600mg Take 1 [facility] 600 mg 9-17 tablet by ity of tablet 00:00: mouth 00 every 6 Medical (six) Branch hours. loperamide 2020-0 Yes [id number] 2mg Take 1 [facility] 2 mg 9-17 capsule by ity of capsule 00:00: mouth 00 daily. Medical Branch methocarbam 2020-0 Yes [id number] 500mg Take 1 Univers oL 500 mg 9-17 tablet by ity o f tablet 00:00: mouth (four) Medical times Branch daily. ibuprofen 2020-0 Yes [id number] 600mg Take 1 [facility] 600 mg 9-17 tablet by ity of tablet 00:00: mouth [place] 00 every 6 Medical (six) Branch hours. loperamide 2020-0 Yes [id number] 2mg Take 1 Univers 2 mg 9-17 capsule by ity of capsule 00:00: mouth 00 daily. Medical Branch methocarbam 2020-0 Yes [id number] 500mg Take 1 Univers oL 500 mg 9-17 tablet by ity o f tablet 00:00: mouth (four) Medical times Branch daily. ibuprofen 2020-0 Yes [id number] 600mg Take 1 [facility] 600 mg 9-17 tablet by ity of tablet 00:00: mouth 00 every 6 Medical (six) Branch hours. loperamide 2020-0 Yes [id number] 2mg Take 1 Univers 2 mg 9-17 capsule by ity of capsule 00:00: mouth [place] 00 daily. Medical Branch methocarbam 2020-0 Yes [id number] 500mg Take 1 Univers oL 500 mg 9-17 tablet by ity o f tablet 00:00: mouth 4 00 (four) Medical times Branch daily. ibuprofen 2020-0 Yes [id number] 600mg Take 1 [facility] 600 mg 9-17 tablet by ity of tablet 00:00: mouth [place] 00 every 6 Medical (six) Branch hours. loperamide 2020-0 Yes [id number] 2mg Take 1 Univers 2 mg 9-17 capsule by ity of capsule 00:00: mouth [place] 00 daily. Medical Branch methocarbam 2020-0 Yes [id number] 500mg Take 1 Univers oL 500 mg 9-17 tablet by ity o f tablet 00:00: mouth 00 (four) Medical times Branch daily. ibuprofen 2020-0 Yes [id number] 600mg Take 1 [facility] 600 mg 9-17 tablet by ity of tablet 00:00: mouth [place] 00 every 6 Medical (six) Branch hours. loperamide 2020-0 Yes [id number] 2mg Take 1 Univers 2 mg 9-17 capsule by ity of capsule 00:00: mouth 00 daily. Medical Branch methocarbam 2020-0 Yes [id number] 500mg Take 1 Univers oL 500 mg 9-17 tablet by ity o f tablet 00:00: mouth (four) Medical times Branch daily. ibuprofen 2020-0 Yes [id number] 600mg Take 1 [facility] 600 mg 9-17 tablet by ity of tablet 00:00: mouth [place] 00 every 6 Medical (six) Branch hours. loperamide 2020-0 Yes [id number] 2mg Take 1 Univers 2 mg 9-17 capsule by ity of capsule 00:00: mouth [place] 00 daily. Medical Branch methocarbam 2020-0 Yes [id number] 500mg Take 1 Univers oL 500 mg 9-17 tablet by ity o f tablet 00:00: mouth (four) Medical times Branch daily. ibuprofen 2020-0 Yes [id number] 600mg Take 1 [facility] 600 mg 9-17 tablet by ity of tablet 00:00: mouth [place] 00 every 6 Medical (six) Branch hours. loperamide 2020-0 Yes [id number] 2mg Take 1 [facility] 2 mg 9-17 capsule by ity of capsule 00:00: mouth [place] 00 daily. Medical Branch methocarbam 2020-0 Yes [id number] 500mg Take 1 Univers oL 500 mg 9-17 tablet by ity o f tablet 00:00: mouth 4 00 (four) Medical times Branch daily. ibuprofen 2020-0 Yes [id number] 600mg Take 1 [facility] 600 mg 9-17 tablet by ity of tablet 00:00: mouth [place] 00 every 6 Medical (six) Branch hours. loperamide 2020-0 Yes [id number] 2mg Take 1 [facility] 2 mg 9-17 capsule by ity of capsule 00:00: mouth [place] 00 daily. Medical Branch methocarbam 2020-0 Yes [id number] 500mg Take 1 Univers oL 500 mg 9-17 tablet by ity o f tablet 00:00: mouth (four) Medical times Branch daily. ibuprofen 2020-0 Yes [id number] 600mg Take 1 [facility] 600 mg 9-17 tablet by ity of tablet 00:00: mouth 00 every 6 Medical (six) Branch hours. loperamide 2020-0 Yes [id number] 2mg Take 1 [facility] 2 mg 9-17 capsule by ity of capsule 00:00: mouth 00 daily. Medical Branch methocarbam 2020-0 Yes [id number] 500mg Take 1 [facility] oL 500 mg 9-17 tablet by ity o f tablet 00:00: mouth (four) Medical times Branch daily. ibuprofen 2020-0 Yes [id number] 600mg Take 1 [facility] 600 mg 9-17 tablet by ity of tablet 00:00: mouth 00 every 6 Medical (six) Branch hours. loperamide 2020-0 Yes [id number] 2mg Take 1 [facility] 2 mg 9-17 capsule by ity of capsule 00:00: mouth 00 daily. Medical Branch methocarbam 2020-0 Yes [id number] 500mg Take 1 [facility] oL 500 mg 9-17 tablet by ity o f tablet 00:00: mouth (four) Medical times Branch daily. ibuprofen 2020-0 Yes [id number] 600mg Take 1 [facility] 600 mg 9-17 tablet by ity of tablet 00:00: mouth [place] 00 every 6 Medical (six) Branch hours. loperamide 2020-0 Yes [id number] 2mg Take 1 [facility] 2 mg 9-17 capsule by ity of capsule 00:00: mouth [place] 00 daily. Medical Branch methocarbam 2020-0 Yes [id number] 500mg Take 1 [facility] oL 500 mg 9-17 tablet by ity o f tablet 00:00: mouth (four) Medical times Branch daily. ibuprofen 2020-0 Yes [id number] 600mg Take 1 [facility] 600 mg 9-17 tablet by ity of tablet 00:00: mouth 00 every 6 Medical (six) Branch hours. loperamide 2020-0 Yes [id number] 2mg Take 1 [facility] 2 mg 9-17 capsule by ity of capsule 00:00: mouth 00 daily. Medical Branch methocarbam 2020-0 Yes [id number] 500mg Take 1 [facility] oL 500 mg 9-17 tablet by ity o f tablet 00:00: mouth (four) Medical times Branch daily. ibuprofen 2020-0 Yes [id number] 600mg Take 1 [facility] 600 mg 9-17 tablet by ity of tablet 00:00: mouth 00 every 6 Medical (six) Branch hours. loperamide 2020-0 Yes [id number] 2mg Take 1 [facility] 2 mg 9-17 capsule by ity of capsule 00:00: mouth 00 daily. Medical Branch methocarbam 2020-0 Yes [id number] 500mg Take 1 [facility] oL 500 mg 9-17 tablet by ity o f tablet 00:00: mouth (four) Medical times Branch daily. ibuprofen 2020-0 Yes [id number] 600mg Take 1 [facility] 600 mg 9-17 tablet by ity of tablet 00:00: mouth 00 every 6 Medical (six) Branch hours. loperamide 2020-0 Yes [id number] 2mg Take 1 [facility] 2 mg 9-17 capsule by ity of capsule 00:00: mouth 00 daily. Medical Branch methocarbam 2020-0 Yes [id number] 500mg Take 1 [facility] oL 500 mg 9-17 tablet by ity o f tablet 00:00: mouth (four) Medical times Branch daily. ibuprofen 2020-0 Yes [id number] 600mg Take 1 [facility] 600 mg 9-17 tablet by ity of tablet 00:00: mouth 00 every 6 Medical (six) Branch hours. loperamide 2020-0 Yes [id number] 2mg Take 1 [facility] 2 mg 9-17 capsule by ity of capsule 00:00: mouth 00 daily. Medical Branch methocarbam 2020-0 Yes [id number] 500mg Take 1 [facility] oL 500 mg 9-17 tablet by ity o f tablet 00:00: mouth (four) Medical times Branch daily. ibuprofen 2020-0 Yes [id number] 600mg Take 1 [facility] 600 mg 9-17 tablet by ity of tablet 00:00: mouth [place] 00 every 6 Medical (six) Branch hours. loperamide 2020-0 Yes [id number] 2mg Take 1 [facility] 2 mg 9-17 capsule by ity of capsule 00:00: mouth 00 daily. Medical Branch methocarbam 2020-0 Yes [id number] 500mg Take 1 [facility] oL 500 mg 9-17 tablet by ity o f tablet 00:00: mouth (four) Medical times Branch daily. ibuprofen 2020-0 Yes [id number] 600mg Take 1 [facility] 600 mg 9-17 tablet by ity of tablet 00:00: mouth [place] 00 every 6 Medical (six) Branch hours. loperamide 2020-0 Yes [id number] 2mg Take 1 [facility] 2 mg 9-17 capsule by ity of capsule 00:00: mouth 00 daily. Medical Branch methocarbam 2020-0 Yes [id number] 500mg Take 1 [facility] oL 500 mg 9-17 tablet by ity o f tablet 00:00: mouth (four) Medical times Branch daily. ibuprofen 2020-0 Yes [id number] 600mg Take 1 [facility] 600 mg 9-17 tablet by ity of tablet 00:00: mouth [place] 00 every 6 Medical (six) Branch hours. methocarbam 2020-0 Yes [id number] 500mg Take 1 [facility] oL 500 mg 9-17 tablet by ity o f tablet 00:00: mouth (four) Medical times Branch daily. ibuprofen 2020-0 Yes [id number] 600mg Take 1 [facility] 600 mg 9-17 tablet by ity of tablet 00:00: mouth [place] 00 every 6 Medical (six) Branch hours. methocarbam 2020-0 Yes [id number] 500mg Take 1 [facility] oL 500 mg 9-17 tablet by ity o f tablet 00:00: mouth (four) Medical times Branch daily. ibuprofen 2020-0 Yes [id number] 600mg Take 1 [facility] 600 mg 9-17 tablet by ity of tablet 00:00: mouth [place] 00 every 6 Medical (six) Branch hours. methocarbam 2020-0 Yes [id number] 500mg Take 1 [facility] oL 500 mg 9-17 tablet by ity o f tablet 00:00: mouth 4 [place] 00 (four) Medical times Branch daily. ibuprofen 2020-0 Yes [id number] 600mg Take 1 [facility] 600 mg 9-17 tablet by ity of tablet 00:00: mouth [place] 00 every 6 Medical (six) Branch hours. methocarbam 2020-0 Yes [id number] 500mg Take 1 [facility] oL 500 mg 9-17 tablet by ity o f tablet 00:00: mouth 4 [place] 00 (four) Medical times Branch daily. acetaminoph 2020- No [id number] 650mg Take 2 [facility] en 325 mg 9-17 09-18 tablets by ity of tablet 00:00: 04:59 mouth [place] 00 :00 every 6 Medical (six) Branch hours. acetaminoph 2020- No [id number] 650mg Take 2 [facility] en 325 mg 9-17 09-18 tablets by ity of tablet 00:00: 04:59 mouth [place] 00 :00 every 6 Medical (six) Branch hours. acetaminoph 2020- No [id number] 650mg Take 2 [facility] en 325 mg 9-17 09-18 tablets by ity of tablet 00:00: 04:59 mouth [place] 00 :00 every 6 Medical (six) Branch hours. acetaminoph 2020- No [id number] 650mg Take 2 [facility] en 325 mg 9-17 09-18 tablets by ity of tablet 00:00: 04:59 mouth [place] 00 :00 every 6 Medical (six) Branch hours. acetaminoph 2019-2020- No [id number] 650mg Take 2 [facility] en 325 mg 9-17 09-18 tablets by ity of tablet 00:00: 04:59 mouth [place] 00 :00 every 6 Medical (six) Branch hours. acetaminoph 2019-2020- No [id number] 650mg Take 2 [facility] en 325 mg 9-17 09-18 tablets by ity of tablet 00:00: 04:59 mouth [place] 00 :00 every 6 Medical (six) Branch hours. acetaminoph 2020- No [id number] 650mg Take 2 [facility] en 325 mg 9-17 09-18 tablets by ity of tablet 00:00: 04:59 mouth [place] 00 :00 every 6 Medical (six) Branch hours. acetaminoph 2020- No [id number] 650mg Take 2 [facility] en 325 mg 9-17 09-18 tablets by ity of tablet 00:00: 04:59 mouth [place] 00 :00 every 6 Medical (six) Branch hours. acetaminoph 2020- No [id number] 650mg Take 2 [facility] en 325 mg 9-17 09-18 tablets by ity of tablet 00:00: 04:59 mouth [place] 00 :00 every 6 Medical (six) Branch hours. acetaminoph 2020- No [id number] 650mg Take 2 [facility] en 325 mg 9-17 09-18 tablets by ity of tablet 00:00: 04:59 mouth [place] 00 :00 every 6 Medical (six) Branch hours. acetaminoph 2020- No [id number] 650mg Take 2 [facility] en 325 mg 9-17 09-18 tablets by ity of tablet 00:00: 04:59 mouth [place] 00 :00 every 6 Medical (six) Branch hours. acetaminoph 2020- No [id number] 650mg Take 2 [facility] en 325 mg 9-17 09-18 tablets by ity of tablet 00:00: 04:59 mouth [place] 00 :00 every 6 Medical (six) Branch hours. acetaminoph 2020- No [id number] 650mg Take 2 [facility] en 325 mg 9-17 09-18 tablets by ity of tablet 00:00: 04:59 mouth [place] 00 :00 every 6 Medical (six) Branch hours. acetaminoph 2020- No [id number] 650mg Take 2 [facility] en 325 mg 9-17 09-18 tablets by ity of tablet 00:00: 04:59 mouth [place] 00 :00 every 6 Medical (six) Branch hours. acetaminoph 2020- No [id number] 650mg Take 2 [facility] en 325 mg 9-17 09-18 tablets by ity of tablet 00:00: 04:59 mouth [place] 00 :00 every 6 Medical (six) Branch hours. acetaminoph 2020- No [id number] 650mg Take 2 [facility] en 325 mg 9-17 09-18 tablets by ity of tablet 00:00: 04:59 mouth [place] 00 :00 every 6 Medical (six) Branch hours. acetaminoph 2020- No [id number] 650mg Take 2 [facility] en 325 mg 9-17 09-18 tablets by ity of tablet 00:00: 04:59 mouth [place] 00 :00 every 6 Medical (six) Branch hours. acetaminoph 2020- No [id number] 650mg Take 2 [facility] en 325 mg 9-17 09-18 tablets by ity of tablet 00:00: 04:59 mouth [place] 00 :00 every 6 Medical (six) Branch hours. acetaminoph 2020- No [id number] 650mg Take 2 [facility] en 325 mg 9-17 09-18 tablets by ity of tablet 00:00: 04:59 mouth [place] 00 :00 every 6 Medical (six) Branch hours. acetaminoph 2020- No [id number] 650mg Take 2 [facility] en 325 mg 9-17 09-18 tablets by ity of tablet 00:00: 04:59 mouth [place] 00 :00 every 6 Medical (six) Branch hours. acetaminoph 2020- No [id number] 650mg Take 2 [facility] en 325 mg 9-17 09-18 tablets by ity of tablet 00:00: 04:59 mouth [place] 00 :00 every 6 Medical (six) Branch hours. acetaminoph 2020- No [id number] 650mg Take 2 [facility] en 325 mg 9-17 09-18 tablets by ity of tablet 00:00: 04:59 mouth [place] 00 :00 every 6 Medical (six) Branch hours. acetaminoph 2020- No [id number] 650mg Take 2 [facility] en 325 mg 9-17 09-18 tablets by ity of tablet 00:00: 04:59 mouth [place] 00 :00 every 6 Medical (six) Branch hours. acetaminoph 2020- No [id number] 650mg Take 2 [facility] en 325 mg 9-17 09-18 tablets by ity of tablet 00:00: 04:59 mouth [place] 00 :00 every 6 Medical (six) Branch hours. acetaminoph 2020- No [id number] 650mg Take 2 [facility] en 325 mg 9-17 09-18 tablets by ity of tablet 00:00: 04:59 mouth [place] 00 :00 every 6 Medical (six) Branch hours. acetaminoph 2020- No [id number] 650mg Take 2 [facility] en 325 mg 9-17 09-18 tablets by ity of tablet 00:00: 04:59 mouth [place] 00 :00 every 6 Medical (six) Branch hours. acetaminoph 2020- No [id number] 650mg Take 2 [facility] en 325 mg 9-17 09-18 tablets by ity of tablet 00:00: 04:59 mouth [place] 00 :00 every 6 Medical (six) Branch hours. acetaminoph 2020- No [id number] 650mg Take 2 [facility] en 325 mg 9-17 09-18 tablets by ity of tablet 00:00: 04:59 mouth [place] 00 :00 every 6 Medical (six) Branch hours. acetaminoph 2020- No [id number] 650mg Take 2 [facility] en 325 mg 9-17 09-18 tablets by ity of tablet 00:00: 04:59 mouth [place] 00 :00 every 6 Medical (six) Branch hours. acetaminoph 2020- No [id number] 650mg Take 2 [facility] en 325 mg 9-17 09-18 tablets by ity of tablet 00:00: 04:59 mouth [place] 00 :00 every 6 Medical (six) Branch hours. acetaminoph 2020- No [id number] 650mg Take 2 [facility] en 325 mg 9-17 09-18 tablets by ity of tablet 00:00: 04:59 mouth [place] 00 :00 every 6 Medical (six) Branch hours. acetaminoph 2020- No [id number] 650mg Take 2 [facility] en 325 mg 9-17 09-18 tablets by ity of tablet 00:00: 04:59 mouth [place] 00 :00 every 6 Medical (six) Branch hours. acetaminoph 2020- No [id number] 650mg Take 2 [facility] en 325 mg 9-17 09-18 tablets by ity of tablet 00:00: 04:59 mouth [place] 00 :00 every 6 Medical (six) Branch hours. acetaminoph 2020-0 2020- No [id number] 650mg Take 2 [facility] en 325 mg 9-17 09-18 tablets by ity of tablet 00:00: 04:59 mouth [place] 00 :00 every 6 Medical (six) Branch hours. acetaminoph 2020-2020- No [id number] 650mg Take 2 [facility] en 325 mg 9-17 09-18 tablets by ity of tablet 00:00: 04:59 mouth [place] 00 :00 every 6 Medical (six) Branch hours. acetaminoph 2020- No [id number] 650mg Take 2 [facility] en 325 mg 9-17 09-18 tablets by ity of tablet 00:00: 04:59 mouth [place] 00 :00 every 6 Medical (six) Branch hours. acetaminoph 2020- No [id number] 650mg Take 2 [facility] en 325 mg 9-17 09-18 tablets by ity of tablet 00:00: 04:59 mouth [place] 00 :00 every 6 Medical (six) Branch hours. acetaminoph 2020- No [id number] 650mg Take 2 [facility] en 325 mg 9-17 09-18 tablets by ity of tablet 00:00: 04:59 mouth [place] 00 :00 every 6 Medical (six) Branch hours. acetaminoph 2020- No [id number] 650mg Take 2 [facility] en 325 mg 9-17 09-18 tablets by ity of tablet 00:00: 04:59 mouth [place] 00 :00 every 6 Medical (six) Branch hours. acetaminoph 2020- No [id number] 650mg Take 2 [facility] en 325 mg 9-17 09-18 tablets by ity of tablet 00:00: 04:59 mouth [place] 00 :00 every 6 Medical (six) Branch hours. acetaminoph 2020- No [id number] 650mg Take 2 [facility] en 325 mg 9-17 09-18 tablets by ity of tablet 00:00: 04:59 mouth [place] 00 :00 every 6 Medical (six) Branch hours. acetaminoph 2020- No [id number] 650mg Take 2 [facility] en 325 mg 9-17 09-18 tablets by ity of tablet 00:00: 04:59 mouth [place] 00 :00 every 6 Medical (six) Branch hours. acetaminoph 2020- No [id number] 650mg Take 2 [facility] en 325 mg 9-17 09-18 tablets by ity of tablet 00:00: 04:59 mouth [place] 00 :00 every 6 Medical (six) Branch hours. acetaminoph 2019- No [id number] 650mg Take 2 [facility] en 325 mg 9-17 12-16 tablets by ity of tablet 00:00: 00:00 mouth [place] 00 :00 every 6 Medical (six) Branch hours. loperamide 2019- No [id number] 2mg Take 1 [facility] 2 mg 08-01 capsule by ity of capsule 00:00: 00:00 [...] 00 First dose Medi ryann mg on [facility] Branch 07/30/20 at 0900, Until Discontinu ed, Routine HYDROmorpho 2020-0 2020- No 2mg 2 mg, Univ ers ne 07-30 Oral, ity of (DILAUDID) 13:28: 11:54 Q4HPRN, [place] tablet 2 mg 43 :45 Starting Medi ryann [facility] Branch 07/30/20 at 0828, Until [place] 08/01/20 at 0654, Routine, Pain (scale 7-10) metoprolol 2019-0 2020- No 12.5mg 12.5 mg, Univers tartrate [...] lactated 2020-0 2020- No 1000mL at 999 [facility] ers ringers IV 07-29 mL/hr, ity of infusion 22:30: 22:14 1,000 mL, [place] 1,000 mL 00 :00 Intravenou Medic al s, ONCE, 1 Branch dose, [facility] 07/29/20 at 1730, Routine ibuprofen 2020-0 Yes 600mg 600 mg, Univ ers (IBU) 07-29 Oral, Q6H ity of tablet 600 17:00: ABX, First [place] mg 00 dose on [facility] 07/29/20 at 1200, Until Discontinu ed, Routine NaCl 0.9% 2020-0 Yes 10mL 10 mL, Univer s (NS) 14 Slow IV ity of injection 15:59: Push, PRN, [place] 10 mL 00 Starting [facility] 07/29/20 at 1059, Until Discontinu ed, Routine, line maintenanc e lidocaine 2020-0 Yes 5mL 5 mL, Univers 1% (PF) 07-29 Subcutaneo ity of (XYLOCAINE) 15:59: us, PRN, [place] injection 5 00 Starting Medi ryann mL [facility] 07/29/20 at 1059, Until Discontinu ed, Routine, Local anesthesia pantoprazol 2020-0 Yes 40mg 40 mg, Univ ers e 07-29 Oral, ity of (PROTONIX) 14:00: DAILY, [place] EC tablet 00 First dose Medi ryann 40 mg on [facility] 07/29/20 at 0900, Until Discontinu ed, Routine acetaminoph 2020-0 Yes 650mg 650 mg, Un thor en 07-29 Oral, Q6H ity of (TYLENOL) 14:00: ABX, First [place] tablet 650 00 dose on Medica l mg [facility] 07/29/20 at 0900, Until Discontinu ed, Routine KCL 2020-0 2020- No 20meq 20 mEq, Univers (KLOR-CON 07-29 Oral, ity of M20) tablet 13:45: 13:50 ONCE, 1 [place] 20 mEq 00 :00 dose, [facility] 07/29/20 at Branch 0845, Routine methocarbam 2020-0 Yes 500mg 500 mg, Un thor oL 07-29 Oral, QID, ity of (ROBAXIN) 13:00: First dose [place] tablet 500 00 on [facility] mg 07/29/20 at Branch 0800, Until Discontinu ed, Routine oxyCODONE 2020-0 2020- No 5mg 5 mg, Univer s immediate 07-29 Oral, ity of release 12:37: 11:44 Q6HPRN, [place] tablet 5 mg 43 :47 Starting Medi ryann [facility] 07/29/20 at 0737, Until Tu07/30/20 at 0644, Routine, Pain (scale 7-10)
F aculty member approving Restricted medication : DARREN CHUN metoprolol 2020-0 2020- No 5mg 5 mg, IV Un thor (LOPRESSOR) 07-29 Push, Q8H, i ty of injection 5 01:00: 12:37 First dose [place] mg 00 :04 (after Medical last Branch modificati on) on [place] 07/28/20 at 2000, Until Discontinu ed, Routine methocarbam 2019-0 2020- No 1g 1,000 mg U nivers oL 07-28 (1 g), IV ity of (ROBAXIN) 22:00: 21:57 Piggyback, [place] 1,000 mg in 00 :00 ONCE, 1 Medic al NaCl 0.9% dose, [place] Branc h (NS) 07/28/20 at piggyback 1700, 100 mL acetaminoph 2019-0 2020- No 1000mg 1,000 mg, Univers en ADULT 07-28 IV ity of (OFIRMEV) 15:00: 08:16 Infusion, [place] injection 00 :00 Administer Medi ryann 1,000 mg over 15 Branch Minutes, Q8H ABX, 3 doses, First dose (after last reorder) on [place] 07/28/20 at 1000, Last dose on 07/29/20 at 0200, Routine
Indicatio n: Non-periop erative Patient
Approved by: Per Policy (NPO Status) ALPRAZolam 2019-0 2020- No .5mg 0.5 mg, Uni vers (XANAX) 07-28 Oral, PRN, ity o f tablet 0.5 13:53: 16:59 1 dose, [place] mg 25 :00 Starting [facility] 07/28/20 at 0853, Until Discontinu ed, Routine, anxiety ALPRAZolam 2020-0 Yes 1mg 1 mg, Univer s (XANAX) 07-28 Oral, ity of tablet 1 mg 13:52: QHSPRN, [place] 54 Starting [facility] 07/28/20 at 0852, Until Discontinu ed, Routine, Insomnia, anxiety D5W 0.45% 2019-0 2020- No IV Univers NaCl 07-28 Infusion, ity of (1/2NS) 1 L 12:45: 12:37 at 100 [place] + KCL 20 00 :04 mL/hr, Medical mEq CONTINUOUS Branch , Starting [place] 07/28/20 at 0745, Until 07/29/20 at 0737, Routine acetaminoph 2020-0 2020- No 1000mg 1,000 [...] mg 00 :00 ONCE, 1 Medical dose, Wed Branch 07/26/20 at 1830, Routine acetaminoph 2019-0 [...] Branch infusion 2 0800, g Routine proCHLORper 2020-0 Yes 10mg 10 mg, IV U nivers [...] Until Discontinu ed, Routine morpHINE 30 2019- No Unive rs mg/30 mL 07-26 ity of (fixed 00:45: 12:37 [place] dose) [employer] 00 :04 Medical injection Branch HYDROmorpho 2019- No .2mg 0.2 mg, Un thor ne [...] Branch 0800, Until Discontinu ed, Routine acetaminoph No 1000mg 1,000 mg, Univers en ADULT 07-24 IV ity of (OFIRMEV) 07:30: 22:16 Infusion, [place] injection 00 :00 Administer Medi ryann 1,000 mg over 15 Branch Minutes, Q8H ABX, 3 doses, First dose on Wed07/24/20 at 0230, Last dose on Wed07/24/20 at 1830, Routine
Indicatio n: Non-periop erative Patient
Approved by: Per Policy (NPO Status) piperacilli 2019- No 3.375g 3.375 g, Univers n-tazobacta 07-24 [...] tion of Therapy: 7 days D5W 0.45% 2019- No IV Univers NaCl 07-24 Infusion, ity of (1/2NS) 1 L 06:30: 12:39 at 150 [place] + KCL 20 00 :19 mL/hr, Medical mEq CONTINUOUS Branch , Starting Wed07/24/20 at 0130, Until Wed07/28/20 at 0739, Routine morpHINE 2020-0 2020- No 4mg 4 mg, Slow Un thor injection 4 07-24 IV Push, ity of mg 06:19: 14:48 Q3HPRN, [place] 51 :46 Starting [facility] Wed07/24/20 Branch at 0119, Until [place] 07/28/20 at 0948, Routine, Pain (scale 7-10) morpHINE 2020-0 2020- No 4mg 4 mg, Slow Un thor injection 4 07-24 IV Push, ity of mg 03:45: 02:42 ONCE, 1 [place] 00 :00 dose, [facility] 07/23/20 at Branch 2245, STAT NaCl 0.9% 2020-0 2020- No 500mL at 999 Univ ers (NS) bolus 07-24 mL/hr, 500 it y of infusion 03:45: 03:41 mL, IV [place] 500 mL 00 :00 Infusion, [facility] ONCE, 1 Branch dose, Tu07/23/20 at 2245, STAT NaCl 0.9% 2020-0 2020- No 1000mL at 150 Uni vers (NS) IV 07-24 mL/hr, ity of infusion 03:45: 09:49 Intravenou [place] 1,000 mL 00 :01 s, Medical CONTINUOUS Branch , Starting Wed07/23/20 at 2245, Until Wed07/24/20 at 0449, Routine proMETHazin 2020-0 2020- No 12.5mg 12.5 mg, Univers e 07-24 IV ity of (PHENERGAN) 01:30: 01:30 [place], [place] 12.5 mg in 00 :00 ONCE, 1 Medica l NaCl 0.9% dose, [facility] h (NS) 50 mL 07/23/20 at piggyback 2030, 50 mL morpHINE 2020-0 2020- No 4mg 4 mg, Slow Un thor injection 4 07-24 IV Push, ity of mg 01:15: 00:22 ONCE, 1 [place] 00 :00 dose, [facility] 07/23/20 at Branch 2015, STAT morpHINE 2019-0 2020- No 4mg 4 mg, Slow Un thor injection 4 07-23 IV Push, ity of mg 22:30: 21:20 ONCE, 1 [place] 00 :00 dose, [facility] 07/23/20 at Branch 1730, STAT piperacilli 2019- 2020- No 3.375g 3.375 g, Univers n-tazobacta 07-23 IV ity of m (ZOSYN) 22:30: 22:14 Piggyback, [place] 3.375 g in 00 :00 ONCE, 1 Medica l NaCl 0.9% dose, [facility] Branc h (NS) 100 mL 07/23/20 at MINI-BAG 1730, 100 mL
Reas on for Anti-Infec tive: Documented Infection< br>Documen carl Infection Site: Abdominal< br>Duratio n of Therapy: 7 days iohexol 2019- No 114mL 114 mL, Unive rs (OMNIPAQUE 07-23 Intravenou it y of 350 20:46: 20:47 s, ONCE, 1 [place] BULK-150 00 :00 dose, Tue Medica l mL) 07/23/20 at [place] injection 1600, 114 mL Routine methylPREDN 2019- No 40mg 40 mg, IV Univers ISolone sod 07-23 Piggyback, i ty of succ 19:15: 19:10 ONCE, 1 [place] (SOLU-MEDRO 00 :00 dose, [facility] ical L (PF)) 07/23/20 at Branch injection 1415, STAT 40 mg diphenhydrA 2020- No 25mg 25 mg, Uni vers MINE 07-23 Slow IV ity of (BENADRYL) 19:15: 19:18 Push, [place] injection 00 :00 ONCE, 1 Medical 25 mg dose, [facility] 07/23/20 at 1415, STAT morpHINE 2019-0 2020- No 4mg 4 mg, Slow Un thor injection 4 07-23 IV Push, ity of mg 19:15: 18:59 ONCE, 1 [place] 00 :00 dose, Tue Medical 07/23/20 at Branch 1415, STAT famotidine 2020- No 20mg 20 mg, Univ ers (PEPCID 07-23 Intravenou ity o f (PF)) 18:45: 19:02 s, ONCE, 1 [place] injection 00 :00 dose, Tue Medic al 20 mg 07/23/20 at Branch 1345, LUISA proMETHazin 2019- No 12.5mg 12.5 mg, Univers e 07-23 IV ity of (PHENERGAN) 18:45: 19:01 Piggyback, [place] 12.5 mg in 00 :00 ONCE, 1 Medica l NaCl 0.9% dose, Tue Branc h (NS) 50 mL 07/23/20 at piggyback 1345, 50 mL NaCl 0.9% 2019- No 1000mL at [...] 2 it y of etamine 21:48: (two) [place] (ADDERALL) 33 times Medical 30 mg daily. Branch tablet Pantoprazol 2018-11 Yes 40mg Take 40 mg Univers e 0-10 by mouth 2 ity of (PROTONIX) 21:48: (two) [place] 40 mg 33 times Medical delayed-rel daily. Branch ease suspension metoprolol 2018-11 Yes [id number] 25mg Take 1 Un thor tartrate 25 0-10 tablet by ity of mg tablet 00:00: mouth 2 [place] 00 (two) Medical times Branch daily. metoprolol 2018-11 Yes [id number] 25mg Take 1 Un thor tartrate 25 0-10 tablet by ity of mg tablet 00:00: mouth 2 [place] 00 (two) Medical times Branch daily. metoprolol 2018-11 Yes [id number] 25mg Take 1 Un thor tartrate 25 0-10 tablet by ity of mg tablet 00:00: mouth (two) Medical times Branch daily. acetaminoph 2018-11 Yes [id number] 1{tbl} Take 1 Univers en-codeine 0-10 tablet by ity of (TYLENOL-CO 00:00: mouth [place] DEINE #4) 00 every 4 Medical 300-60 mg (four) Branch tablet hours as needed for Pain. levoFLOXaci 2018-11 Yes [id number] 750mg Take 1 Univers n 750 mg 0-10 tablet by ity of tablet 00:00: mouth 00 every 24 Medical (twenty-fo Branch ur) hours. metoprolol 2018-11 Yes [id number] 25mg Take 1 Un thor tartrate 25 0-10 tablet by ity of mg tablet 00:00: mouth (two) Medical times Branch daily. metoprolol 2018-11 Yes [id number] 25mg Take 1 Un thor tartrate 25 0-10 tablet by ity of mg tablet 00:00: mouth (two) Medical times Branch daily. metoprolol 2018-11 Yes [id number] 25mg Take 1 Un thor tartrate 25 0-10 tablet by ity of mg tablet 00:00: mouth (two) Medical times Branch daily. metoprolol 2018-11 Yes [id number] 25mg Take 1 Un thor tartrate 25 0-10 tablet by ity of mg tablet 00:00: mouth (two) Medical times Branch daily. metoprolol 2018-11 Yes [id number] 25mg Take 1 Un thor tartrate 25 0-10 tablet by ity of mg tablet 00:00: mouth (two) Medical times Branch daily. metoprolol 2018-11 Yes [id number] 25mg Take 1 Un thor tartrate 25 0-10 tablet by ity of mg tablet 00:00: mouth (two) Medical times Branch daily. metoprolol 2018-11 Yes [id number] 25mg Take 1 Un thor tartrate 25 0-10 tablet by ity of mg tablet 00:00: mouth (two) Medical times Branch daily. metoprolol 2018-11 Yes [id number] 25mg Take 1 Un thor tartrate 25 0-10 tablet by ity of mg tablet 00:00: mouth (two) Medical times Branch daily. metoprolol 2018-11 Yes [id number] 25mg Take 1 Un thor tartrate 25 0-10 tablet by ity of mg tablet 00:00: mouth (two) Medical times Branch daily. metoprolol 2018-11 Yes [id number] 25mg Take 1 Un thor tartrate 25 0-10 tablet by ity of mg tablet 00:00: mouth (two) Medical times Branch daily. metoprolol 2018-11 Yes [id number] 25mg Take 1 Un thor tartrate 25 0-10 tablet by ity of mg tablet 00:00: mouth (two) Medical times Branch daily. metoprolol 2018-11 Yes [id number] 25mg Take 1 Un thor tartrate 25 0-10 tablet by ity of mg tablet 00:00: mouth (two) Medical times Branch daily. metoprolol 2018-11 Yes [id number] 25mg Take 1 Un thor tartrate 25 0-10 tablet by ity of mg tablet 00:00: mouth (two) Medical times Branch daily. metoprolol 2018-11 Yes [id number] 25mg Take 1 Un thor tartrate 25 0-10 tablet by ity of mg tablet 00:00: mouth (two) Medical times Branch daily. metoprolol 2018-11 Yes [id number] 25mg Take 1 Un thor tartrate 25 0-10 tablet by ity of mg tablet 00:00: mouth (two) Medical times Branch daily. metoprolol 2018-11 Yes [id number] 25mg Take 1 Un thor tartrate 25 0-10 tablet by ity of mg tablet 00:00: mouth (two) Medical times Branch daily. metoprolol 2018-11 Yes [id number] 25mg Take 1 Un thor tartrate 25 0-10 tablet by ity of mg tablet 00:00: mouth (two) Medical times Branch daily. metoprolol 2018-11 Yes [id number] 25mg Take 1 Un thor tartrate 25 0-10 tablet by ity of mg tablet 00:00: mouth (two) Medical times Branch daily. metoprolol 2018-11 Yes [id number] 25mg Take 1 Un htor tartrate 25 0-10 tablet by ity of mg tablet 00:00: mouth (two) Medical times Branch daily. metoprolol 2018-11 Yes [id number] 25mg Take 1 Un thor tartrate 25 0-10 tablet by ity of mg tablet 00:00: mouth (two) Medical times Branch daily. metoprolol 2018-11 Yes [id number] 25mg Take 1 [facility] tartrate 25 0-10 tablet by ity of mg tablet 00:00: mouth (two) Medical times Branch daily. metoprolol 2018-11 Yes [id number] 25mg Take 1 [facility] tartrate 25 0-10 tablet by ity of mg tablet 00:00: mouth (two) Medical times Branch daily. metoprolol 2018-11 Yes [id number] 25mg Take 1 [facility] tartrate 25 0-10 tablet by ity of mg tablet 00:00: mouth (two) Medical times Branch daily. metoprolol 2018-11 Yes [id number] 25mg Take 1 Un [facility] tartrate 25 0-10 tablet by ity of mg tablet 00:00: mouth (two) Medical times Branch daily. metoprolol 2018-11 Yes [id number] 25mg Take 1 Un [facility] tartrate 25 0-10 tablet by ity of mg tablet 00:00: mouth (two) Medical times Branch daily. metoprolol 2018-11 Yes [id number] 25mg Take 1 [facility] tartrate 25 0-10 tablet by ity of mg tablet 00:00: mouth (two) Medical times Branch daily. metoprolol 2018-11 Yes [id number] 25mg Take 1 [facility] tartrate 25 0-10 tablet by ity of mg tablet 00:00: mouth (two) Medical times Branch daily. metoprolol 2018-11 Yes [id number] 25mg Take 1 [facility] tartrate 25 0-10 tablet by ity of mg tablet 00:00: mouth (two) Medical times Branch daily. metoprolol 2018-11 Yes [id number] 25mg Take 1 Un [facility] tartrate 25 0-10 tablet by ity of mg tablet 00:00: mouth (two) Medical times Branch daily. metoprolol 2018-11 Yes [id number] 25mg Take 1 Un [facility] tartrate 25 0-10 tablet by ity of mg tablet 00:00: mouth (two) Medical times Branch daily. metoprolol 2018-11 Yes [id number] 25mg Take 1 Un [facility] tartrate 25 0-10 tablet by ity of mg tablet 00:00: mouth (two) Medical times Branch daily. metoprolol 2018-11 Yes [id number] 25mg Take 1 Un [facility] tartrate 25 0-10 tablet by ity of mg tablet 00:00: mouth (two) Medical times Branch daily. metoprolol 2018-11 Yes [id number] 25mg Take 1 Un [facility] tartrate 25 0-10 tablet by ity of mg tablet 00:00: mouth (two) Medical times Branch daily. metoprolol 2018-11 Yes [id number] 25mg Take 1 Un [facility] tartrate 25 0-10 tablet by ity of mg tablet 00:00: mouth (two) Medical times Branch daily. metoprolol 2018-11 Yes [id number] 25mg Take 1 Un thor tartrate 25 0-10 tablet by ity of mg tablet 00:00: mouth (two) Medical times Branch daily. metoprolol 2018-11 Yes [id number] 25mg Take 1 Un [facility] tartrate 25 0-10 tablet by ity of mg tablet 00:00: mouth (two) Medical times Branch daily. metoprolol 2018-11 Yes [id number] 25mg Take 1 Un thor tartrate 25 0-10 tablet by ity of mg tablet 00:00: mouth (two) Medical times Branch daily. metoprolol 2018-11 Yes [id number] 25mg Take 1 Un [facility] tartrate 25 0-10 tablet by ity of mg tablet 00:00: mouth (two) Medical times Branch daily. metoprolol 2018-11 Yes [id number] 25mg Take 1 Un [facility] tartrate 25 0-10 tablet by ity of mg tablet 00:00: mouth (two) Medical times Branch daily. metoprolol 2018-11 Yes [id number] 25mg Take 1 Un [facility] tartrate 25 0-10 tablet by ity of mg tablet 00:00: mouth (two) Medical times Branch daily. metoprolol 2018-11 Yes [id number] 25mg Take 1 Un thor tartrate 25 0-10 tablet by ity of mg tablet 00:00: mouth 2 [place] 00 (two) Medical times Branch daily. metoprolol 2018-11- No [id number] 25mg Take 1 U nivers tartrate 25 0-10 12-16 tablet by it y of mg tablet 00:00: 00:[place] :[place] (two) Medical times Branch daily. acetaminoph 2018-11- No [id number] 1{tbl} Take 1 Univers en-codeine 0-10 -17 tablet by ity of (TYLENOL-CO 00:00: 00:[place] DEINE #4[place] 00 :00 every 4 Medical 300-60 mg (four) Branch tablet hours as needed for Pain. levoFLOXaci 2018-11- No [id number] 750mg Take 1 Univers n 750 mg 0-10 -17 tablet by ity o f tablet 00:00: 00:00 mouth [place] 00 :00 every 24 Medical (twenty-fo Branch ur) hours. proMETHazin 2018-11 Yes [id number] 25mg Take 1 Univers e 25 mg 0-04 tablet by ity of tablet 00:00: mouth [place] 00 every 6 Medical (six) Branch hours as needed for Nausea and Vomiting (N/V). proMETHazin 2018-11 Yes [id number] 25mg Take 1 Univers e 25 mg 0-04 tablet by ity of tablet 00:00: mouth [place] 00 every 6 Medical (six) Branch hours as needed for Nausea and Vomiting (N/V). proMETHazin 2018-11 Yes [id number] 25mg Take 1 Univers e 25 mg 0-04 tablet by ity of tablet 00:00: mouth [place] 00 every 6 Medical (six) Branch hours as needed for Nausea and Vomiting (N/V). proMETHazin 2018-11 Yes [id number] 25mg Take 1 Univers e 25 mg 0-04 tablet by ity of tablet 00:00: mouth [place] 00 every 6 Medical (six) Branch hours as needed for Nausea and Vomiting (N/V). proMETHazin 2018-11 Yes [id number] 25mg Take 1 Univers e 25 mg 0-04 tablet by ity of tablet 00:00: mouth [place] 00 every 6 Medical (six) Branch hours as needed for Nausea and Vomiting (N/V). proMETHazin 2018-11 Yes [id number] 25mg Take 1 Univers e 25 mg 0-04 tablet by ity of tablet 00:00: mouth [place] 00 every 6 Medical (six) Branch hours as needed for Nausea and Vomiting (N/V). proMETHazin 2018-11 Yes [id number] 25mg Take 1 Univers e 25 mg 0-04 tablet by ity of tablet 00:00: mouth [place] 00 every 6 Medical (six) Branch hours as needed for Nausea and Vomiting (N/V). proMETHazin 2018-11 Yes [id number] 25mg Take 1 Univers e 25 mg 0-04 tablet by ity of tablet 00:00: mouth [place] 00 every 6 Medical (six) Branch hours as needed for Nausea and Vomiting (N/V). proMETHazin 2018-11 Yes [id number] 25mg Take 1 Univers e 25 mg 0-04 tablet by ity of tablet 00:00: mouth [place] 00 every 6 Medical (six) Branch hours as needed for Nausea and Vomiting (N/V). proMETHazin 2018-11 Yes [id number] 25mg Take 1 Univers e 25 mg 0-04 tablet by ity of tablet 00:00: mouth [place] 00 every 6 Medical (six) Branch hours as needed for Nausea and Vomiting (N/V). proMETHazin 2018-11 Yes [id number] 25mg Take 1 Univers e 25 mg 0-04 tablet by ity of tablet 00:00: mouth [place] 00 every 6 Medical (six) Branch hours as needed for Nausea and Vomiting (N/V). proMETHazin 2018-11 Yes [id number] 25mg Take 1 Univers e 25 mg 0-04 tablet by ity of tablet 00:00: mouth [place] 00 every 6 Medical (six) Branch hours as needed for Nausea and Vomiting (N/V). proMETHazin 2018-11 Yes [id number] 25mg Take 1 Univers e 25 mg 0-04 tablet by ity of tablet 00:00: mouth [place] 00 every 6 Medical (six) Branch hours as needed for Nausea and Vomiting (N/V). proMETHazin 2018-11 Yes [id number] 25mg Take 1 Univers e 25 mg 0-04 tablet by ity of tablet 00:00: mouth [place] 00 every 6 Medical (six) Branch hours as needed for Nausea and Vomiting (N/V). proMETHazin 2018-11 Yes [id number] 25mg Take 1 Univers e 25 mg 0-04 tablet by ity of tablet 00:00: mouth [place] 00 every 6 Medical (six) Branch hours as needed for Nausea and Vomiting (N/V). proMETHazin 2018-11 Yes [id number] 25mg Take 1 Univers e 25 mg 0-04 tablet by ity of tablet 00:00: mouth [place] 00 every 6 Medical (six) Branch hours as needed for Nausea and Vomiting (N/V). proMETHazin 2018-11 Yes [id number] 25mg Take 1 Univers e 25 mg 0-04 tablet by ity of tablet 00:00: mouth [place] 00 every 6 Medical (six) Branch hours as needed for Nausea and Vomiting (N/V). proMETHazin 2018-11 Yes [id number] 25mg Take 1 Univers e 25 mg 0-04 tablet by ity of tablet 00:00: mouth [place] 00 every 6 Medical (six) Branch hours as needed for Nausea and Vomiting (N/V). proMETHazin 2018-11 Yes [id number] 25mg Take 1 Univers e 25 mg 0-04 tablet by ity of tablet 00:00: mouth [place] 00 every 6 Medical (six) Branch hours as needed for Nausea and Vomiting (N/V). proMETHazin 2018-11 Yes [id number] 25mg Take 1 Univers e 25 mg 0-04 tablet by ity of tablet 00:00: mouth [place] 00 every 6 Medical (six) Branch hours as needed for Nausea and Vomiting (N/V). proMETHazin 2018-11 Yes [id number] 25mg Take 1 Univers e 25 mg 0-04 tablet by ity of tablet 00:00: mouth [place] 00 every 6 Medical (six) Branch hours as needed for Nausea and Vomiting (N/V). proMETHazin 2018-11 Yes [id number] 25mg Take 1 Univers e 25 mg 0-04 tablet by ity of tablet 00:00: mouth [place] 00 every 6 Medical (six) Branch hours as needed for Nausea and Vomiting (N/V). proMETHazin 2018-11 Yes [id number] 25mg Take 1 Univers e 25 mg 0-04 tablet by ity of tablet 00:00: mouth [place] 00 every 6 Medical (six) Branch hours as needed for Nausea and Vomiting (N/V). proMETHazin 2018-11 Yes [id number] 25mg Take 1 Univers e 25 mg 0-04 tablet by ity of tablet 00:00: mouth [place] 00 every 6 Medical (six) Branch hours as needed for Nausea and Vomiting (N/V). proMETHazin 2018-11 Yes [id number] 25mg Take 1 Univers e 25 mg 0-04 tablet by ity of tablet 00:00: mouth [place] 00 every 6 Medical (six) Branch hours as needed for Nausea and Vomiting (N/V). proMETHazin 2018-11 Yes [id number] 25mg Take 1 Univers e 25 mg 0-04 tablet by ity of tablet 00:00: mouth [place] 00 every 6 Medical (six) Branch hours as needed for Nausea and Vomiting (N/V). proMETHazin 2018-11- No [id number] 25mg Take 1 Univers e 25 mg [...] [facility] 0.9% 06/15/19 [facility] (NS) 50 mL 1515, 50 piggyback mL morpHINE 2018- No 4mg 4 mg, Slow Un thor injection 4 06-15 IV Push, ity of mg 20:15: 19:30 ONCE, 1 [place] 00 :00 dose, [facility] Medical 06/15/19 at Branch 1515, STAT [...] 17:54 ONCE, 1 [place] 00 :00 dose, [facility] Medical 06/15/19 at Branch 1345, STAT proMETHazin [...] [facility] 06/15/19 at 1200, LUISA proMETHazin Yes [id number] 25mg Take 1 U nivers e 25 mg 06-15 tablet by ity of tablet 00:00: mouth [place] 00 every 6 Medical (six) Branch hours as needed for Nausea and Vomiting (N/V). famotidine 2019- No [id number] 40mg Take 1 U nivers 40 mg 06-15 tablet by ity of tablet 00:00: 04:59 mouth [place] 00 :00 daily for Medical 14 days. Branch predniSONE 2018- Yes [id number] Take 1 U nivers 10 mg 4-26 tablet ity of tablet 00:00: daily. [place] 00 Medical Branch proMETHazin Yes [id number] 25mg Insert 1 Univers e 25 mg [...] as needed for Pain (scale 4-6). proMETHazin 2015- Yes 12.5mg Insert 1 Univers e 5-10 Suppositor ity of (PHENERGAN) 00:00: [place] 12.5 mg 00 rectum Medical suppository every 4 Branc h (four) hours as needed for Nausea and Vomiting (N/V) for up to 5 doses. PHENERGAN 2015- Yes 25mg Insert 1 Univ ers 25 mg 3-12 Suppositor [facility] of suppository 00:00: [place] 00 rectum Medical every 4 Branch (four) hours as needed for Nausea and Vomiting (N/V). HYDROcodone 2012-11 Yes Periapical 1{tbl} Take 1 [place] -acetaminop 0-22 abscess tablet by Health hen (Revokom) 00:00: mouth 10-325 mg 00 every 6 tablet hours as needed for Pain. HYDROcodone 2012-11 Yes Periapical 1{tbl} Take 1 [place] -acetaminop 0-22 abscess tablet by Health hen (Revokom) 00:00: mouth 10-325 mg 00 every 6 tablet hours as needed for Pain. HYDROcodone 2012-11 Yes Periapical 1{tbl} Take 1 [place] -acetaminop 0-22 abscess tablet by Health hen (Revokom) 00:00: mouth 10-325 mg 00 every 6 tablet hours as needed for Pain. HYDROcodone 2012-11 Yes Periapical 1{tbl} Take 1 [place] -acetaminop 0-22 abscess tablet by Health hen (Revokom) 00:00: mouth 10-325 mg 00 every 6 tablet hours as needed for Pain. HYDROcodone 2012-11 Yes Periapical 1{tbl} Take 1 [place] -acetaminop 0-22 abscess tablet by Health hen (Revokom) 00:00: mouth 10-325 mg 00 every 6 tablet hours as needed for Pain. HYDROcodone 2012-11 Yes Periapical 1{tbl} Take 1 [place] -acetaminop 0-22 abscess tablet by Health hen (Revokom) 00:00: mouth 10-325 mg 00 every 6 tablet hours as needed for Pain. HYDROcodone 2012-11 Yes Periapical 1{tbl} Take 1 [place] -acetaminop 0-22 abscess tablet by [facility] hen (TopVisibleSD) 00:00: mouth 10-325 mg 00 every 6 tablet hours as needed for Pain. HYDROcodone 2012-11 Yes Caries 1{tbl} Take 1 [place] -acetaminop 0-21 tablet by [facility] hen (Revokom) 00:00: mouth 5-325 mg 00 every 6 tablet hours as needed for Pain. HYDROcodone 2012-11 Yes Caries 1{tbl} Take 1 [place] -acetaminop 0-21 tablet by [facility] hen (Revokom) 00:00: mouth 5-325 mg 00 every 6 tablet hours as needed for Pain. HYDROcodone 2012-11 Yes Caries 1{tbl} Take 1 [place] -acetaminop 0-21 tablet by [facility] hen (Revokom) 00:00: mouth 5-325 mg 00 every 6 tablet hours as needed for Pain. HYDROcodone 2012-11 Yes Caries 1{tbl} Take 1 [place] -acetaminop 0-21 tablet by [facility] hen (Revokom) 00:00: mouth 5-325 mg 00 every 6 tablet hours as needed for Pain. HYDROcodone 2012-11 Yes Caries 1{tbl} Take 1 [place] -acetaminop 0-21 tablet by [facility] hen (Revokom) 00:00: mouth 5-325 mg 00 every 6 tablet hours as needed for Pain. HYDROcodone 2012-11 Yes Caries 1{tbl} Take 1 [place] -acetaminop 0-21 tablet by [facility] hen (Revokom) 00:00: mouth 5-325 mg 00 every 6 tablet hours as needed for Pain. HYDROcodone 2012-11 Yes Caries 1{tbl} Take 1 [place] -acetaminop 0-21 tablet by [facility] hen (Revokom) 00:00: mouth 5-325 mg 00 every 6 tablet hours as needed for Pain. proMETHazin 2010-11 Yes [id number] 12.5mg Take 1 Tab Univers e 2-23 by mouth ity of (PHENERGAN) 00:00: every 6 [place] 12.5 mg 00 (six) Medical tablet hours as Branch needed for Nausea and Vomiting. Vital Signs Vital Name Observation Time Observation Value Comments Source Systolic blood 2023-08-22 116 mm[Hg] University of pressure 15:00:00 [facility] Diastolic blood 2023-08-22 70 mm[Hg] University o f pressure 15:00:00 [facility] Heart rate 2023-08-22 95 /min University of 15:00:00 [facility] Respiratory rate 2023-08-22 16 /min University of 15:00:00 [facility] Oxygen saturation 2023-08-22 99 /min University of in Arterial blood 15:00:00 [facility] by Pulse oximetry Branch Body temperature 2023-08-22 37 Tayla University of 11:40:00 [facility] Body height 2023-08-22 170.2 cm University of 11:40:00 [facility] Body weight 2023-08-22 65.772 kg University of 11:40:00 [facility] BMI 2023-08-22 22.71 kg/m2 University of 11:40:00 [facility] Systolic blood 2023-08-06 141 mm[Hg] University of pressure 16:06:00 [facility] Diastolic blood 2023-08-06 85 mm[Hg] University o f pressure 16:06:00 [facility] Heart rate 2023-08-06 102 /min University of 16:06:00 [facility] Body temperature 2023-08-06 36.67 [place] University of 16:06:00 [facility] Respiratory rate 2023-08-06 18 /min University of 16:06:00 [facility] Oxygen saturation 2023-08-06 100 /min University of in Arterial blood 16:06:00 [facility] ryann by Pulse oximetry Branch Body weight 2023-08-06 65.998 kg University of 09:00:00 [facility] BMI 2023-08-06 22.79 kg/m2 University of 09:00:00 [facility] Body height 2023-08-05 170.2 cm University of 17:47:00 [facility] Systolic blood 2023-03-25 136 mm[Hg] University of pressure 18:45:00 [facility] Diastolic blood 2023-03-25 72 mm[Hg] University o f pressure 18:45:00 [facility] Heart rate 2023-03-25 100 /min University of 18:45:00 [place] [facility] Respiratory rate 2023-03-25 15 /min University of 18:45:00 [facility] Branch Oxygen saturation 2023-03-25 100 /min University of in Arterial blood 18:45:00 [facility] ryann by Pulse oximetry Branch Body temperature 2023-03-25 37.44 Tayla University of 12:39:00 [facility] Body height 2023-03-25 170.2 cm University of 12:39:00 [facility] Body weight 2023-03-25 61.825 kg University of 12:39:00 [facility] BMI 2023-03-25 21.35 kg/m2 University of 12:39:00 [facility] Systolic blood 2020-10-30 92 mm[Hg] University of pressure 22:01:00 [facility] Branch Diastolic blood 2020-10-30 65 mm[Hg] University o f pressure 22:01:00 [facility] Branch Heart rate 2020-10-30 104 /min University of 22:01:00 [facility] Body temperature 2020-10-30 36.83 [place] University of 22:01:00 [facility] Respiratory rate 2020-10-30 18 /min University of 22:01:00 [facility] Oxygen saturation 2020-10-30 96 /min University of in Arterial blood 22:01:00 [facility] by Pulse oximetry Branch Body weight 2020-10-24 61.2 kg University of 19:35:00 [facility] BMI 2020-10-24 21.13 kg/m2 University of 19:35:00 [facility] Systolic blood 2020-10-30 92 mm[Hg] University of pressure 22:01:00 [facility] Diastolic blood 2020-10-30 65 mm[Hg] University o f pressure 22:01:00 [facility] Heart rate 2020-10-30 104 /min University of 22:01:00 [facility] Body temperature 2020-10-30 36.83 [place] University of 22:01:00 [facility] Branch Respiratory rate 2020-10-30 18 /min University of 22:01:00 [facility] Branch Oxygen saturation 2020-10-30 96 /min University of in Arterial blood 22:01:00 [facility] by Pulse oximetry Branch Body weight 2020-10-24 61.2 kg University of 19:35:00 [facility] BMI 2020-10-24 21.13 kg/m2 University of 19:35:00 [facility] Branch Systolic blood 2020-10-19 92 mm[Hg] University of pressure 19:08:00 [place] [facility] Diastolic blood 2020-10-19 63 mm[Hg] University o f pressure 19:08:00 [place] [facility] Heart rate 2020-10-19 98 /min University of 19:08:00 [facility] Branch Body temperature 2020-10-19 36.17 Tayla University of 19:08:00 [place] [facility] Respiratory rate 2020-10-19 18 /min University of 19:08:00 [facility] Branch Oxygen saturation 2020-10-19 100 /min University of in Arterial blood 19:08:00 [facility] by Pulse oximetry Branch Body height 2020-10-14 170.2 cm University of 12:21:00 [facility] Body weight 2020-10-14 55.1 kg University of 12:21:00 [facility] BMI 2020-10-14 19.03 kg/m2 University of 12:21:00 [facility] Systolic blood 2020-10-19 92 mm[Hg] University of pressure 19:08:00 [facility] Diastolic blood 2020-10-19 63 mm[Hg] University o f pressure 19:08:00 [facility] Branch Heart rate 2020-10-19 98 /min University of 19:08:00 [facility] Body temperature 2020-10-19 36.17 Tayla University of 19:08:00 [facility] Branch Respiratory rate 2020-10-19 18 /min University of 19:08:00 [facility] Oxygen saturation 2020-10-19 100 /min University of in Arterial blood 19:08:00 [facility] by Pulse oximetry Branch Body height 2020-10-14 170.2 cm University of 12:21:00 [facility] Body weight 2020-10-14 55.1 kg University of 12:21:00 [facility] BMI 2020-10-14 19.03 kg/m2 University of 12:21:00 [facility] Branch Respiratory rate 2020-10-02 20 /min University of 06:35:00 [facility] Branch Oxygen saturation 2020-10-02 97 /min University of in Arterial blood 06:35:00 [facility] [place] by Pulse oximetry Branch Systolic blood 2020-10-02 122 mm[Hg] University of pressure 04:53:00 [facility] Diastolic blood 2020-10-02 88 mm[Hg] University o f pressure 04:53:00 [place] [facility] Branch Heart rate 2020-10-02 133 /min University of 04:53:00 [facility] Body temperature 2020-10-02 37.28 Tayla University of 04:53:00 [facility] Body height 2020-10-02 170 cm University of 04:53:00 [facility] Body weight 2020-10-02 58.968 kg University of 04:53:00 [facility] BMI 2020-10-02 20.40 kg/m2 University of 04:53:00 [facility] Systolic blood 2020-09-27 98 mm[Hg] University of pressure 15:38:00 [facility] Branch Diastolic blood 2020-09-27 64 mm[Hg] University o f pressure 15:38:00 [facility] Heart rate 2020-09-27 86 /min University of 15:38:00 [facility] Body temperature 2020-09-27 37.06 Tayla University of 15:38:00 [facility] Body height 2020-09-27 170.2 cm University of 15:38:00 [facility] Body weight 2020-09-27 59.104 kg University of 15:38:00 [facility] BMI 2020-09-27 20.41 kg/m2 University of 15:38:00 [facility] Oxygen saturation 2020-09-27 100 /min [facility] in Arterial blood 15:38:00 [facility] by Pulse oximetry Branch Systolic blood 2020-09-18 106 mm[Hg] University of pressure 21:45:00 [facility] Diastolic blood 2020-09-18 68 mm[Hg] University o f pressure 21:45:00 [facility] Heart rate 2020-09-18 101 /min University of 21:45:00 [facility] Body temperature 2020-09-18 36.22 Tayla University of 21:45:00 [facility] Respiratory rate 2020-09-18 18 /min University of 21:45:00 [facility] Oxygen saturation 2020-09-18 98 /min University in Arterial blood 21:45:00 [facility] [place] by Pulse oximetry Branch Body weight 2020-09-18 61.236 kg With one University of 10:59:00 blanket and [place] Medical sheet. Branch BMI 2020-09-18 21.14 kg/m2 University of 10:59:00 [facility] Body height 2020-09-13 170.2 cm University of 20:47:00 [facility] Systolic blood 2020-09-01 129 mm[Hg] University of pressure 11:00:00 [facility] Diastolic blood 2020-09-01 86 mm[Hg] University o f pressure 11:00:00 [facility] Heart rate 2020-09-01 102 /min University of 11:00:00 [facility] Body temperature 2020-09-01 37.67 Tayla University of 10:00:00 [facility] Branch Respiratory rate 2020-09-01 18 /min University of 10:00:00 [facility] Oxygen saturation 2020-09-01 100 /min University of in Arterial blood 10:00:00 [facility] [place] by Pulse oximetry Branch Body weight 2020-09-01 58.968 kg University of 06:45:00 [facility] BMI 2020-09-01 20.36 kg/m2 University of 06:45:00 [facility] Systolic blood 2020-08-24 124 mm[Hg] University of pressure 00:00:00 [facility] Diastolic blood 2020-08-24 90 mm[Hg] University o f pressure 00:00:00 [facility] Heart rate 2020-08-24 89 /min University of 00:00:00 [facility] Respiratory rate 2020-08-24 20 /min University of 00:00:00 [facility] Oxygen saturation 2020-08-24 100 /min University of in Arterial blood 00:00:00 [facility] by Pulse oximetry Branch Body temperature 2020-08-23 36.61 Tayla University of 22:27:00 [facility] Body weight 2020-08-23 58.968 kg University of 22:27:00 [facility] BMI 2020-08-23 20.36 kg/m2 University of 22:27:00 [facility] Systolic blood 2020-08-20 117 mm[Hg] University of pressure 16:22:00 [facility] Diastolic blood 2020-08-20 86 mm[Hg] University o f pressure 16:22:00 [facility] Heart rate 2020-08-20 129 /min University of 16:22:00 [facility] Body temperature 2020-08-20 36.89 Tayla University of 16:21:00 [facility] Respiratory rate 2020-08-20 16 /min University of 16:21:00 [facility] Body height 2020-08-20 170.2 cm University of 16:21:00 [facility] Body weight 2020-08-20 57.607 kg University of 16:21:00 [facility] BMI 2020-08-20 19.89 kg/m2 University of 16:21:00 [facility] Branch Systolic blood 2020-08-18 115 mm[Hg] University of pressure 04:00:00 [facility] Branch Diastolic blood 2020-08-18 79 mm[Hg] University o f pressure 04:00:00 [facility] Branch Heart rate 2020-08-18 104 /min University of 04:00:00 [facility] Branch Respiratory rate 2020-08-18 17 /min University of 04:00:00 [facility] Oxygen saturation 2020-08-18 100 /min University of in Arterial blood 04:00:00 [facility] by Pulse oximetry Branch Body temperature 2020-08-18 37.06 Tayla University of 00:44:00 [facility] Body weight 2020-08-18 56.7 kg University of 00:44:00 [facility] BMI 2020-08-18 19.58 kg/m2 University of 00:44:00 [facility] Systolic blood 2020-08-09 153 mm[Hg] University of pressure 15:40:00 [facility] Diastolic blood 2020-08-09 83 mm[Hg] University o f pressure 15:40:00 [facility] Branch Heart rate 2020-08-09 143 /min University of 15:40:00 [facility] Body temperature 2020-08-09 36.83 Tayla University of 15:40:00 [facility] Body height 2020-08-09 170.2 cm University of 15:40:00 [facility] Body weight 2020-08-09 56.473 kg University of 15:40:00 [facility] BMI 2020-08-09 19.50 kg/m2 University of 15:40:00 [facility] Oxygen saturation 2020-08-09 100 /min [place] of in Arterial blood 15:40:00 [facility] by Pulse oximetry Branch Systolic blood 2020-08-01 126 mm[Hg] University of pressure 13:03:00 [facility] Diastolic blood 2020-08-01 76 mm[Hg] University o f pressure 13:03:00 [facility] Heart rate 2020-08-01 119 /min University of 13:03:00 [facility] Body temperature 2020-08-01 36.67 Tayla University of 13:03:00 [facility] Respiratory rate 2020-08-01 16 /min University of 13:03:00 [facility] Oxygen saturation 2020-08-01 99 /min University [facility] in Arterial blood 13:03:00 [facility] Pulse [facility] Body weight 2020-07-23 70.308 [facility] 16:57[facility]00 [facility] BMI 2020-07-23 24.28 kg/m2 [facility] 16:57:00 [facility] Systolic blood 2019-06-15 110 mm[Hg] [place] of pressure 18:22:00 [facility] Diastolic blood 2019-06-15 57 mm[Hg] [facility] pressure 18:22:00 [facility] Heart rate 2019-06-15 91 /min [facility] 18:22:00 [facility] Respiratory rate 2019-06-15 18 /min [facility] 18:22:00 [facility] Oxygen saturation 2019-06-15 98 /min [facility] in Arterial blood 18:22:00 [facility] by Pulse oximetry [place] Body temperature 2019-06-15 38 Tayla [facility] 16:54:00 [facility] Body weight 2019-06-15 83.915 [facility] 16:54:00 [facility] BMI 2019-06-15 28.98 kg/m2 [facility] 16:54:00 [facility] Procedures Procedure Date / Time Performing Clinician Source Performed POCT TEST 2023-08-22 12:33:00 Heladio Klein [facility] COMP. METABOLIC PANEL 2023-08-22 12:22:00 Heladio Klein [facility] ([id number]) [facility] CBC WITH DIFF 2023-08-22 12:22:00 [place] [facility] URINALYSIS 2023-08-22 11:50:[address] [facility] CONSENT/REFUSAL FOR 2023-08-22 11:30:45 Doctor Unassigned, [facility] DIAGNOSIS AND TREATMENT [facility] COVID-19 (ID NOW RAPID 2023-08-05 19:20:00 Daquan Beatty [facility] TESTING) Medical Branch LAB ONLY COVID 2023-08-05 19:20:00 Daquan Beatty [facility] C-REACTIVE PROTEIN 2023-08-05 19:10:00 JudecoDaquan hopkins [facility] TROPONIN I 2023-08-05 19:10:00 JudecoLorena hopkinsDaquan [facility] SEDIMENTATION RATE 2023-08-05 19:10:00 Daquan Beatty [facility] CT ABDOMEN PELVIS W 2023-08-05 15:00:18 Heladio Klein [facility] URINE DRUG (IMMUNOASSAY) 2023-08-05 13:35:00 Heladio Klein [facility] SCREEN POCT TEST 2023-08-05 13:24:00 Ebony Chakraborty [facility] URINALYSIS 2023-08-05 13:20:00 Ebony Chakraborty [facility] LIPASE 2023-08-05 12:02:00 Ebony Chakraborty [facility] MAGNESIUM 2023-08-05 12:02:00 Ebony Chakraborty [facility] COMP. METABOLIC PANEL 2023-08-05 12:02:00 Ebony Chakraborty [facility] ([id number] CBC WITH DIFF 2023-08-05 12:02:00 Ebony Chakraborty [facility] NOTICE OF PRIVACY 2023-08-05 11:36:18 Doctor Vanessa, [facility] PRACTICES [facility] CONSENT/REFUSAL FOR 2023-08-05 11:34:08 Doctor Vanessa, [facility] DIAGNOSIS AND TREATMENT [facility] HOSPITAL ADMISSION 2023-08-05 05:01:00 Doctor Vanessa, [facility] [place] CT ABDOMEN PELVIS W 2023-03-25 15:40:45 Heladio Klein [facility] URINALYSIS 2023-03-25 14:59:00 Heladio Klein [facility] URINE DRUG (IMMUNOASSAY) 2023-03-25 14:59:00 Heladio Klein [facility] SCREEN W/O REFLEX LIPASE 2023-03-25 13:36:00 Heladio Klein [facility] TROPONIN I 2023-03-25 13:36:00 Heladio Klein [facility] COMP. METABOLIC PANEL 2023-03-25 13:36:00 Heladio Klein [facility] ([id number]) [facility] N-TERMINAL PRO-BNP 2023-03-25 13:36:00 Heladio Klein [facility] CBC WITH DIFF 2023-03-25 13:23:00 Ernie [facility] RAPID STREP SCREEN FOR 2023-03-25 13:23:00 Heladio Klein [facility] GROUP A Medical Branch RAPID INFLUENZA A/B 2023-03-25 13:23:00 Heladio Klein [facility] LACTIC ACID WHOLE BLOOD 2023-03-25 13:23:00 Heladio Klein [facility] COVID-19 (ID NOW RAPID 2023-03-25 13:23:00 Heladio Klein [facility] TESTING) Medical Branch XR CHEST 1 VW 2023-03-25 13:08:12 Heladio Klein [facility] HB ECG ROUTINE & RHYTHM 2023-03-25 13:03:07 Heladio Klein [facility] CONSENT/REFUSAL FOR 2023-03-25 12:29:55 Doctor Unassmaria del carmen, [facility] DIAGNOSIS AND TREATMENT [facility] AUTHORIZATION FOR RELEASE 2021-06-18 05:01:00 Doctor Unassigned, [facility] Name [facility] EXTERNAL PROVIDER RECORDS 2020-11-20 06:01:00 Doctor Unassigned, [facility] Name [facility] CBC WITH DIFF 2020-10-29 13:10:00 Leticia Hinson [facility] MAGNESIUM 2020-10-29 09:36:00 [facility] METABOLIC PANEL 2020-10-29 09:36:00 Mark Judy [facility] (NA, K, CL, CO2, GLUCOSE, [facility] BUN, CREATININE, CA) PHOSPHORUS 2020-10-28 10:00:00 Rena Moser [facility] MAGNESIUM 2020-10-28 10:00:00 Mark Judy [facility] BASIC METABOLIC PANEL 2020-10-28 10:00:00 Wallagrass Judy [facility] (NA, K, CL, CO2, GLUCOSE, [facility] BUN, CREATININE, CA) CBC WITH DIFF 2020-10-28 09:59:00 Judy Flores [facility] Jazz [facility] MAGNESIUM 2020-10-27 07:05:00 [facility]OLIC PANEL 2020-10-27 07:05:00 [facility] ([facility], K, CL, CO2, GLUCOSE, Medica l Branch BUN, CREATININE, CA) CBC WITH DIFF 2020-10-27 07:05:00 [facility] 2020-10-27 07:05:00 [facility] URINE CULTURE 2020-10-27 07:05:00 [facility] CBC WITH DIFF 2020-10-26 11:43:00 [facility] 2020-10-26 03:41:00 [facility] 2020-10-26 03:41:00 [facility] BASIC METABOLIC PANEL 2020-10-26 03:41:00 [facility] (NA, K, CL, CO2, GLUCOSE, Medica l Branch BUN, CREATININE, CA) CBC WITH DIFF 2020-10-26 03:41:00 [facility] COVID-19 (ID NOW RAPID 2020-10-25 01:26:00 [facility] Medical Branch LAB ONLY COVID 2020-10-25 01:26:00 [facility] BASIC METABOLIC PANEL 2020-10-24 22:27:00 Leticia Hinson [facility] (NA, K, CL, CO2, GLUCOSE, Medica l Branch BUN, CREATININE, CA) CBC WITH DIFF 2020-10-24 22:27:00 Leticia Hinson [facility] CT ABDOMEN PELVIS W 2020-10-24 21:20:40 [facility] BASIC METABOLIC PANEL 2020-10-17 23:11:00 Darren Chun [facility] (NA, K, CL, CO2, GLUCOSE, Medica l Branch BUN, CREATININE, CA) CLOSTRIDIUM DIFFICILE 2020-10-17 17:24:00 Ehsan, Rena [facility] MRSA / MSSA SCREEN BY 2020-10-15 01:09:00 Mandeep Garnica [facility] PHILL BERMUDEZ [facility] SURGICAL PATHOLOGY EXAM 2020-10-14 15:01:00 Kalee [facility] LAPAROTOMY 2020-10-14 13:10:00 Kalee [facility] ILEOSTOMY TAKEDOWN 2020-10-14 13:10:00 Kalee [facility] ASSIGNMENT OF BENEFITS 2020-10-14 11:29:56 Doctor Unassigned, [facility] URINALYSIS 2020-10-02 05:22:00 Ebony Chakraborty [facility] LIPASE 2020-10-02 05:19:00 Ebony Chakraborty [facility] HEPATIC FUNCTION PANEL 2020-10-02 05:19:00 Ebony Chakraborty [facility] ([id number]) (ALB,T.PRO,BILI Medical Branch T,BU/BC,ALT,AST,ALK PHOS) BASIC METABOLIC PANEL 2020-10-02 05:19:00 Ebony Chakraborty [facility] (NA, K, CL, CO2, GLUCOSE, Medica l Branch BUN, CREATININE, CA) CBC WITH DIFF 2020-10-02 05:19:00 Ebony Chakraborty [facility] CONSENT/REFUSAL FOR 2020-10-02 04:45:02 Doctor Unassigned, [facility] DIAGNOSIS AND TREATMENT [facility] [place] COMP. METABOLIC PANEL 2020-09-16 12:00:00 Roby Jean [facility] ([id number]) Medical Branch COMP. METABOLIC PANEL 2020-09-15 09:58:00 Roby Jean [facility] ([id number]) Medical Branch CREATINE KINASE 2020-09-14 16:03:00 Roby Jean [facility] HEPATIC FUNCTION PANEL 2020-09-14 16:03:00 Roby Jean [facility] ([id number]) (ALB,T.PRO,BILI Medical [place] T,BU/BC,ALT,AST,ALK PHOS) BASIC METABOLIC PANEL 2020-09-14 16:03:00 Roby Jean [facility] (NA, K, CL, CO2, GLUCOSE, Medica l Branch BUN, CREATININE, CA) HEPATITIS B SURFACE 2020-09-14 10:15:00 [facility] HEPATITIS B SURFACE 2020-09-14 10:15:00 [facility] ANTIGEN [facility] HCV BY PCR 2020-09-14 10:15:00 [facility] ROUTINE & RHYTHM 2020-09-13 18:17:57 [facility] STRIP [facility] MAGNESIUM 2020-09-13 18:16:00 [facility] 2020-09-13 18:16[facility]00 [facility] 2020-09-13 17:15[facility]00 [facility]. METABOLIC PANEL 2020-09-13 17:15:00 Delta Hellen [facility] ([id number]) [facility] CBC WITH DIFF 2020-09-13 17:15:00 Delta Hellen [facility] XR ABDOMEN 2 VW 2020-09-13 16:44:14 [facility] 2020-09-13 05:01:00 Doctor Unassigned, [facility] DOCUMENTS [facility] CT ABDOMEN PELVIS W 2020-09-01 08:02:47 Shayla Munoz [facility] CONTRAST [facility] LIPASE 2020-09-01 07:10:[address] [facility] COMP. METABOLIC PANEL 2020-09-01 07:10:00 Shayla Munoz [facility] ([id number]) Medical Branch CBC WITH DIFF 2020-09-01 07:10:[address] [facility] CT ABDOMEN PELVIS W 2020-08-24 01:30:05 Matthias Silvestre [facility] CONTRAST Medical Branch LIPASE 2020-08-23 23:52:00 Matthias Silvestre [facility] CBC WITH DIFF 2020-08-23 23:52:00 Matthias Silvestre [facility] CONSENT/REFUSAL FOR 2020-08-23 22:12:59 Doctor Unawendy [facility] DIAGNOSIS AND TREATMENT [facility] CT ABDOMEN PELVIS W 2020-08-18 02:24:35 Shayla Munoz [facility] CONTRAST Medical Branch LIPASE 2020-08-18 01:23:00 Shayla Munoz [facility] COMP. METABOLIC PANEL 2020-08-18 01:23:00 Shayla Munoz [facility] ([id number]) Medical Branch CBC WITH DIFF 2020-08-18 01:23:00 Shayla Munoz [facility] COVID-19 (ID NOW RAPID 2020-08-18 01:23:00 Alexander [facility] TESTING) Medical Branch NOTICE OF PRIVACY 2020-08-18 00:35:45 Doctor Vanessa, [facility] PRACTICES [facility] [place] CONSENT/REFUSAL FOR 2020-08-18 00:31:36 Doctor Vanessa, [facility] DIAGNOSIS AND TREATMENT [facility] [place] AUTHORIZATION TO RELEASE 2020-08-09 05:01:00 Doctor Vanessa, [facility] PHI TO [facility] [place] PHOSPHORUS 2020-08-01 08:47:00 [facility] MAGNESIUM 2020-08-01 08:47:00 [facility] BASIC METABOLIC PANEL 2020-08-01 08:47:00 [facility] (NA, K, CL, CO2, GLUCOSE, Medica l Branch BUN, CREATININE, CA) CBC WITH DIFF 2020-08-01 08:47:00 [facility] PHOSPHORUS 2020-07-31 10:06:00 [facility] MAGNESIUM 2020-07-31 10:06:00 [facility] BASIC METABOLIC PANEL 2020-07-31 10:06:00 [facility] (NA, K, CL, CO2, GLUCOSE, Medica l Branch BUN, CREATININE, CA) CBC WITH DIFF 2020-07-31 10:06:00 [facility] PHOSPHORUS 2020-07-30 09:29:00 [facility] MAGNESIUM 2020-07-30 09:29:00 [facility] BASIC METABOLIC PANEL 2020-07-30 09:29:00 [facility] (NA, K, CL, CO2, GLUCOSE, Medica l Branch BUN, CREATININE, CA) BASIC METABOLIC PANEL 2020-07-29 10:11:00 [facility] (NA, K, CL, CO2, GLUCOSE, Medica l Branch BUN, CREATININE, CA) CBC WITHOUT DIFF 2020-07-29 10:11:00 [facility] PROTHROMBIN TIME / INR 2020-07-29 10:11:00 [facility] ACTIVATED PARTIAL 2020-07-29 10:11:00 [facility] THRM[facility] FIBRINOGEN 2020-07-29 10:11:00 [facility] EXTRA TUBE LT. BLUE 2020-07-29 10:11:00 Kalee [facility] EXTRA TUBE LT. GREEN 2020-07-29 10:11:00 Kalee [facility] XR KUB 2020-07-29 09:55:00 [facility] CBC WITHOUT DIFF 2020-07-28 10:15:00 Devan [facility] BASIC METABOLIC PANEL 2020-07-28 09:47:00 Farooq Hartman [facility] (NA, K, CL, CO2, GLUCOSE, [facility] BUN, CREATININE, CA) BASIC METABOLIC PANEL 2020-07-27 10:39:00 Farooq Hartman [facility] (NA, K, CL, CO2, GLUCOSE, [facility] BUN, CREATININE, CA) CBC WITHOUT DIFF 2020-07-27 10:39:00 Farooq Hartman [facility] BASIC METABOLIC PANEL 2020-07-26 07:53:00 Farooq Hartman [facility] (NA, K, CL, CO2, GLUCOSE, [facility] BUN, CREATININE, CA) CBC WITHOUT DIFF 2020-07-26 07:53:00 Devan [facility] MAGNESIUM 2020-07-26 00:13:00 Devan [facility] BASIC METABOLIC PANEL 2020-07-26 00:13:00 Farooq Hartman [facility] (NA, K, CL, CO2, GLUCOSE, [facility] BUN, CREATININE, CA) CBC WITHOUT DIFF 2020-07-26 00:13:00 Devan [facility] PROTHROMBIN TIME / INR 2020-07-26 00:13:00 Farooq Hartman [facility] ACTIVATED PARTIAL 2020-07-26 00:13:00 Farooq Hartman [facility] THRMPLAS [facility] SURGICAL PATHOLOGY EXAM 2020-07-25 22:08:00 Kalee [facility] ILEOSTOMY 2020-07-25 20:18:00 Kalee [facility] ILEOCECECTOMY 2020-07-25 20:18:00 Kalee [facility] BASIC METABOLIC PANEL 2020-07-25 11:35:00 Akshat Tuttle [facility] (NA, K, CL, CO2, GLUCOSE, Medica l Branch BUN, CREATININE, CA) CBC WITHOUT DIFF 2020-07-25 11:35:00 Akshat Tuttle [facility] ABORH CONFIRMATION 2020-07-25 04:37:00 Mercedez Negro [facility] HB ABO GROUPING 2020-07-25 04:12:00 Oliver Nunez [facility] BASIC METABOLIC PANEL 2020-07-24 07:34:00 Dc Jay [facility] (NA, K, CL, CO2, GLUCOSE, Medica l Branch BUN, CREATININE, CA) CBC WITHOUT DIFF 2020-07-24 07:34:00 Dc Jay [facility] XR ABDOMEN 1 VW 2020-07-24 06:56:00 Dc Jay [facility] EKG-12 LEAD 2020-07-24 06:39:07 Farooq Zepeda [facility] COVID-19 (ID NOW RAPID 2020-07-24 00:26:00 Mercedez Negro [facility] TESTING) Medical Branch LACTIC ACID WHOLE BLOOD 2020-07-24 00:24:00 Mercedez Negro Un [facility] BLOOD CULTURE SCREEN 2020-07-23 21:41:00 Mercedez Negro [facility] LACTIC ACID WHOLE BLOOD 2020-07-23 21:41:00 Mercedez Negro Un [facility] CT ABDOMEN PELVIS W 2020-07-23 20:56:[address] [facility] LIP[facility] 2020-07-23 19:31:[address] [facility] HEPATIC FUNCTION PANEL 2020-07-23 19:31:00 Mercedez Negro [facility] ([id number]) (ALB,T.PRO,BILI Medical Branch T,BU/BC,ALT,AST,ALK PHOS) BASIC METABOLIC PANEL 2020-07-23 19:31:00 Mercedez Negro [facility] (NA, K, CL, CO2, GLUCOSE, Medica l Branch BUN, CREATININE, CA) CBC WITH DIFF 2020-07-23 19:31:[address] [facility] URINALYSIS 2020-07-23 19:19:[address] [facility] NOTICE OF PRIVACY 2020-07-23 16:48:03 Doctor Vanessa, [facility] PRACTICES [facility] CONSENT/REFUSAL FOR 2020-07-23 16:47:54 Doctor Vanessa, [facility] DIAGNOSIS AND TREATMENT [facility] AGREEMENTS AUTHORIZATIONS 2020-07-23 05:01:00 Doctor Vanessa, [facility] AND IRREVOCABLE [facility] ASSIGNMENTS (FORM 2001) CT ABDOMEN PELVIS W 2019-06-15 18:45:34 Mary Jo Dukes [facility] LACTIC ACID WHOLE BLOOD 2019-06-15 17:46:[address] [facility] LIPASE 2019-06-15 17:30:00 Mary Jo Dukes [facility] HEPATIC FUNCTION PANEL 2019-06-15 17:30:00 Mary Jo Dukes [facility] ([id number]) (ALB,T.PRO,BILI Medical Branch T,BU/BC,ALT,AST,ALK PHOS) BASIC METABOLIC PANEL 2019-06-15 17:30:00 Mary Jo Dukes [facility] (NA, K, CL, CO2, GLUCOSE, Medica l Branch BUN, CREATININE, CA) CBC WITH DIFFERENTIAL 2019-06-15 17:30:00 Mary Jo Dukes [facility] POCT TEST 2019-06-15 17:24:00 Mary Jo Dukes [facility] URINALYSIS 2019-06-15 17:22:00 Mary Jo Dukes [facility] NOTICE OF PRIVACY 2019-06-15 16:39:09 Doctor Unassigned, [facility] PRACTICES [facility] [place] CONSENT/REFUSAL FOR 2019-06-15 16:38:53 Doctor Unassigned, [facility] DIAGNOSIS AND TREATMENT [facility] [place] Plan of Care Planned Activity Planned Date Details Comments Source Future Scheduled Test 2023-08-15 00:00:00 IMM Influenza [facility] Seasonal (>/= 19 yrs) [code = IMM Influenza Seasonal (>/= 19 yrs)] Future Scheduled Test 2023-07-16 00:00:00 IMM Influenza [facility] Seasonal (>/= [...] malignant neoplasm of cervix (procedure) [code = 386228644] Future Scheduled Test 2004 00:00:00 Screening for [facility] malignant neoplasm of cervix (procedure) [code = 348690542] Future Scheduled Test 2004 00:00:00 Screening for [facility] malignant neoplasm of cervix (procedure) [code = 280938400] Future Scheduled Test 2004 00:00:00 Screening for [facility] malignant neoplasm of cervix (procedure) [code = 281539736] Future Scheduled Test 2004 00:00:00 Screening for [facility] malignant neoplasm of cervix (procedure) [code = 901351895] Future Scheduled Test 2004 00:00:00 Screening for [facility] malignant neoplasm of cervix (procedure) [code = 114535129] Future Scheduled Test 2004 00:00:00 Screening for [facility] malignant neoplasm of cervix (procedure) [code = 902996468] Future Scheduled Test 2004 00:00:00 Screening for [facility] malignant neoplasm of cervix (procedure) [code = 847739505] Future Scheduled Test 2004 00:00:00 Screening for [facility] malignant neoplasm of cervix (procedure) [code = 322593998] Future Scheduled Test 2004 00:00:00 Screening for [facility] malignant neoplasm of cervix (procedure) [code = 563793656] Future Scheduled Test 2004 00:00:00 Screening for [facility] malignant neoplasm of cervix (procedure) [code = 492494352] Future Scheduled Test 2004 00:00:00 Screening for [facility] malignant neoplasm of cervix (procedure) [code = 733283923] Future Scheduled Test 1995 00:00:00 Screening for [facility] malignant neoplasm of cervix (procedure) [code = 376497828] Future Scheduled Test 1995 00:00:00 Screening for [facility] malignant neoplasm of cervix (procedure) [code = 771668022] Future Scheduled Test 1975-04-08 00:00:00 COVID-19 Vaccine (#1) [facility] [code = COVID-19 Vaccine (#1)] Future Scheduled Test 1975-04-08 00:00:00 COVID-19 Vaccine (#1) [facility] [code = COVID-19 Vaccine (#1)] Future Scheduled Test 1975-04-08 00:00:00 COVID-19 Vaccine (#1) [facility] [code = COVID-19 Vaccine (#1)] Future Scheduled Test 1975-04-08 00:00:00 COVID-19 Vaccine (#1) [facility] [code = COVID-19 Vaccine (#1)] Future Scheduled Test 1975-04-08 00:00:00 COVID-19 Vaccine (#1) [facility] [code = COVID-19 Vaccine (#1)] Future Scheduled Test 1975-04-08 00:00:00 COVID-19 Vaccine (#1) [facility] [code = COVID-19 Vaccine (#1)] Future Scheduled Test 1975-04-08 00:00:00 COVID-19 Vaccine (#1) [facility] [code = COVID-19 Vaccine (#1)] Future Scheduled Test 1974 00:00:00 Fluoride Varnish [facility] [code = Fluoride Varnish] Future Scheduled Test 1974 00:00:00 Fluoride Varnish [facility] [code = Fluoride Varnish] Future Scheduled Test 1974 00:00:00 Fluoride Varnish [facility] [code = Fluoride Varnish] Encounters Start End Encounter Admission Attending Care Care Encounter Source Date/Time Date/Time Type Type Clinicians Facility Department ID 2021-09-13 Emergency [facility] [id number] Univers 06:14:00 ity [facility] 2021-09-13 Outpatient DARREN CHUN [facility] [id number] Univers 05:23:22 ity of [facility] 2021-09-13 Emergency [facility] [id number] Univers 04:35:58 ity of [facility] 2021-09-13 Emergency [facility] [id number] Univers 02:03:39 ity of [facility] 2021-09-13 Emergency [facility] [id number] Univers 00:06:17 ity of [facility] 2021-09-12 Emergency [facility] [id number] Univers 23:33:58 ity of [facility] 2021-09-12 Emergency [facility] [id number] Univers 22:11:08 ity of [facility] 2021-09-12 Emergency [facility] [id number] Univers 20:54:06 [facility] [facility] 2021-03-20 Inpatient HCAPM JOSE ROBERTO [id number] H[facility] 10:26:00 41 [facility] 2021-01-10 Inpatient HCAWU JOSE ROBERTO [id number] [facility] 20:22:00 98 [facility] 2023-08-22 2023-08-22 Emergency [facility] [id number] Univers 06:47:00 11:11:00 [facility] 2023-08-22 2023-08-22 [facility] 1.2.572.645 [id number] Univers 06:47:00 11:11:00 Heladio BENAVIDEZ 350.1.13.10 i ty [place] 4.2.7.2.686 [facility] [phone] [facility] [address] 2023-08-05 2023-08-06 Outpatient X DAQUAN BEATTY [facility] [id number] Univers 06:48:00 15:52:00 DAQUAN BEATTY ity [facility] 2023-08-05 2023-08-06 Emergency Daquan Beatty [facility] 1.2.840.1 14 [id number] Univers 06:48:00 15:52:00 Heladio Klein [facility] 350.1.13.10 ity of [place] 4.2.7.2.686 [facility] [phone] [address] ([facility]) 2023-03-25 2023-03-25 Emergency X [facility] ERT [id number] Univers 07:41:00 14:17:00 HELADIO ity of [facility] 2023-03-25 2023-03-25 Emergency [facility] 1.2.824.240 [id number] Univers 07:41:00 14:17:00 Heladio BENAVIDEZ 350.1.13.10 i ty [facility] 4.2.7.2.686 [facility] [phone] [address] 2023-03-25 2023-03-25 Orders Doctor LETICIA 1.2.840.114 [id number] Univers 00:00:00 00:00:00 Only Unassigned, ARMAND 350.1.13.10 ity of [place] [facility] 4.2.7.2.686 Juan as [phone] [address] 2021-06-18 2021-06-18 Orders Doctor LETICIA 1.2.840.114 [id number] Univers 00:00:00 00:00:00 Only Unassigned, ARMAND 350.1.13.10 ity of [place] [facility] 4.2.7.2.686 Juan as [phone] [address] 2021-05-31 2021-05-31 Emergency E STEFFI, MHNW MHNW 7504 MHNW 11:46:00 20:16:00 DELORIS 2021-03-20 2021-03-20 Outpatient NIDIA Villanueva HCACL [id number] [facility] 18:43:30 18:43:30 Safi 05 [facility] 2021-01-03 2021-01-03 Patient Anne Fuentes 1.2.840.114 [id number] Univers 00:00:00 00:00:00 Outreach Mercedez Foleyy 350.1.13.10 it[place] [id number] [facility] [address] 2020-11-26 2020-11-26 Outpatient R [facility] [id number] Univers 09:00:00 09:00:00 ORPHEUS ity [facility] 2020-11-26 2020-11-26 Telephone Darren Chun [facility] 1.2.840.114 [id number] Univers 00:00:00 00:00:00 Health 350.1.13.10 it [place] - [phone] [facility] [address] 2020-11-22 2020-11-22 Outpatient R [facility] [id number] Univers 15:30:00 15:30:00 ORPHEUS ity [facility] 2020-11-20 2020-11-20 Orders Doctor KELLY 1.2.840.114 [id number] Univers 00:00:00 00:00:00 Only Unassigned, ARMAND 350.1.13.10 ity of [place] [facility] 4.2.7.2.686 Juan as [phone] [facility] [address] 2020-11-19 2020-11-19 Outpatient R [facility] [id number] Univers 11:15:00 11:15:00 ORPHEUS ity [facility] 2020-11-12 2020-11-12 Patient Deepika Ramirez 1.2.840.114 [id number] Univers 00:00:00 00:00:00 Outreach Annmarie Foleyy 350.1.13.10 i ty [place] [id number] [facility] [address] 2020-11-11 2020-11-11 Telephone [facility] 1.2.840.114 [id number] Univers 00:00:00 00:00:00 [facility] 350.1.13.10 it[place] - [phone] Med ical [facility] [address] 2020-11-05 2020-11-05 Telephone Kalee Darren [facility] 1.2.840.114 [id number] Univers 00:00:00 00:00:00 SPECIALTY 350.1.13.10 it[place] of [place].2.[place] [phone] Ia maximus LARA [address] [place] [address] 2020-11-01 2020-11-01 Patient Deepika Ramirez Anne 1.2.840.114 80 [id number] Univers 00:00:00 00:00:00 Outreach E Narayanan 350.1.13.10 i ty [place] [id number] [facility] [address] [place] 2020-10-31 2020-10-31 Transition Anne Damon 1.2.840.114 802 [id number] 00:00:00 00:00:00 of Care Lynda Narayanan 350.1.13.10 [place] 4.2.7.2.686 [id number] [facility] 2020-10-31 2020-10-31 Transition Anne Damon 1.2.840.114 802 [id number] Univers 00:00:00 00:00:00 of Care Lynda Narayanan 350.1.13.10 it[place] [id number] [facility] [address] [place] 2020-10-24 2020-10-30 [facility] Blaire 1.2.840.114 8 [id number] 13:38:00 19:38:00 Encounter [place]and 350.1.13.10 Hospital 4.2.7.2.686 [id number] [facility] 2020-10-24 2020-10-30 [facility] Blaire 1.2.840.114 [id number] Univers 13:38:00 19:38:00 Encounter Armand 350.1.13.10 ity of Hospital 4.2.7.2.686 Juan as [id number] [place] [address] [place] 2020-10-24 2020-10-30 Inpatient X KALEE [facility] JASIEL [id number] Univers 13:38:00 19:38:00 ity of [facility] 2020-10-21 2020-10-21 Transition Anne Damon 1.2.840.114 [id number] Univers 00:00:00 00:00:00 of Care Lynda Narayanan 350.1.13.10 [place] [phone] [address] 2020-10-21 2020-10-21 Transition Anne Damon 1.2.840.114 800 [id number] 00:00:00 00:00:00 of Care Lynda Narayanan 350.1.13.10 [place] 4.2.7.2.686 [id number] [facility] 2020-10-14 2020-10-19 [facility] Darrenryan Rudd 1.2.840.114 7 [id number] [facility] 05:48:00 15:50:00 Encounter [place] 350.1.13.10 ity of Hospital 4.2.7.2.686 Juan as [phone] [address] 2020-10-14 2020-10-19 [facility] 1.2.840.114 7 [id number] 05:48:00 15:50:00 Encounter [place] 350.1.13.10 Hospital 4.2.7.2.686 [id number] [facility] 2020-10-16 2020-10-16 Patient Deepika Ramirez 1.2.840.114 79 [id number] [facility] 00:00:00 00:00:00 Outreach E Narayanan 350.1.13.10 i ty [place] [id number] [address] 2020-10-16 2020-10-16 Patient Deepika Ramirez 1.2.840.114 79 [id number] 00:00:00 00:00:00 Outreach E Narayanan 350.1.13.10 [place] 4.2.7.2.686 [id number] [facility] 2020-10-14 2020-10-14 Orders Doctor LETICIA 1.2.840.114 [id number] Univers 00:00:00 00:00:00 Only Unassigned, ARMAND 350.1.13.10 ity of [place] [facility] 4.2.7.2.686 Juan as [phone] [facility] [address] [place] 2020-10-14 2020-10-14 Orders Doctor LETICIA 1.2.840.114 [id number] 00:00:00 00:00:00 Only Unassigned, ARMAND 350.1.13.10 [place] [facility] 4.2.7.2.686 [id number] 009 2020 2020 Laboratory Only, [facility] Test [facility] 1.2.840. 114 [id number] Univers 14:56:46 15:11:46 Only Darren Chun 350.1.13.10 ity of [place].2.[place] [phone] [facility] [address] [place] 2020 2020 Laboratory Only, [facility] 1.2.840.114 7 [id number] 14:56:46 15:11:46 Only Test [place] 350.1.13.10 [place] 4.2.7.2.686 [place] [id number] 353 2020 2020 Outpatient R [facility] [id number] Univers 14:45:00 14:45:00 ity of [facility] 2020-10-07 2020-10-07 Patient Deepika Ramirez 1.2.840.114 [id number] Univers 00:00:00 00:00:00 Outreach E Narayanan 350.1.13.10 i ty of [place] [id number] [facility] [address] 2020-10-07 2020-10-07 Patient Deepika Ramirez 1.2.840.114 79 [id number] 00:00:00 00:00:00 Outreach E Narayanan 350.1.13.10 [place] 4.2.7.2.686 [id number] [facility] 2020-10-01 2020-10-02 Emergency [facility] 1.2.840.114 [id number] [facility] 23:00:00 01:14:00 Ebony Benavidez 350.1.13.10 ity of [place] 4.2.7.2.[place] [id number] [facility] [address] [place] 2020-10-01 2020-10-01 Transition Sabi Damonmamie 1.2.840.114 [id number] Univers 00:00:00 00:00:00 of Care Lynda Narayanan 350.1.13.10 [place] [id number] [address] 2020-09-30 2020-09-30 [facility] 1.2.840.114 [id number] Univers 00:00:00 00:00:00 Health 350.1.13.10 it y of Cancer 4.2.7.2.686 [facility] - [phone] [address] 2020-09-27 2020-09-27 Office [facility] 1.2.840.114 79 [id number] Univers 09:20:41 09:35:41 Visit Health 350.1.13.10 it y of Cancer 4.2.7.2.686 [facility] - [phone] [address] 2020-09-27 2020-09-27 Outpatient R KALEE [facility] 034 [id number] Univers 09:30:00 09:30:00 ity of [facility] 2020-09-24 2020-09-24 Telephone [facility] 1.2.840.114 [id number] Univers 00:00:00 00:00:00 Health 350.1.13.10 it y of Cancer 4.2.7.2.686 [facility] - [phone] [address] 2020-09-19 2020-09-19 Transition DamonSabi marquezmamie 1.2.840.114 [id number] Univers 00:00:00 00:00:00 of Care Lynda Narayanan 350.1.13.10 [place] [phone] [address] 2020-09-19 2020-09-19 Patient Deepika Ramirezmamie 1.2.840.114 79 [id number] Univers 00:00:00 00:00:00 Outreach E Narayanan 350.1.13.10 i ty [place]2.[place].2.[place] [phone] [place] [address] [address] 2020-09-13 2020-09-18 [facility] Hellen Sorenson [facility] 1.2.840.1 14 [id number] Univers 10:29:00 17:07:00 Encounter Roby Jean [place] 350.1.13.10 ity of [place]2.7.2.[place] [phone] [facility] [address] 2020-09-17 2020-09-17 Patient Deepika Ramirezmamie 1.2.840.114 79 [id number] Univers 00:00:00 00:00:00 Outreach E Narayanan 350.1.13.10 i ty [place] [id number] [address] 2020-09-16 2020-09-16 Patient Deepika Ramirezmamie 1.2.840.114 79 [id number] Univers 00:00:00 00:00:00 Outreach E Narayanan 350.1.13.10 i [place] [id number] [address] 2020-09-16 2020-09-16 Patient Alfredo Anne 1.2.840.114 [id number] Univers 00:00:00 00:00:00 Outreach Mercedez Barlow Narayanan 350.1.13.10 ity [place] [phone] [address] 2020-09-13 2020-09-13 Patient Deepika Ramirez Anne 1.2.840.114 79 [id number] Univers 00:00:00 00:00:00 Outreach E Narayanan 350.1.13.10 i ty [place] [id number] [address] 2020-09-12 2020-09-12 Transition Anne Damon 1.2.840.114 [id number] Univers 00:00:00 00:00:00 of Care Lynda Narayanan 350.1.13.10 ity of [place].2.[place] [id number] [place] [address] [address] 2020-09-12 2020-09-12 Patient Deepika Ramirez 1.2.840.114 79 [id number] Univers 00:00:00 00:00:00 Outreach Annmarie Narayanan 350.1.13.10 i ty [place] [id number] [address] 2020-09-12 2020-09-12 Patient Deepika Ramirez 1.2.840.114 79 [id number] Univers 00:00:00 00:00:00 Outreach E Narayanan 350.1.13.10 i ty [place] [id number] [address] 2020-09-12 2020-09-12 Patient Anne Fuentes 1.2.840.114 [id number] Univers 00:00:00 00:00:00 Outreach Mercedez Yen Oracio 350.1.13.10 ity [place] [id number] [address] 2020-09-12 2020-09-12 Telephone [facility] 1.2.840.114 [id number] Univers 00:00:00 00:00:00 [place] SPECIALTY 350.1.13.10 ity of [facility] 4.2.7.2.[place] AT [phone] Ia maximus LARA [address] [place] [address] 2020-09-06 2020-09-06 Outpatient R DARREN CHUN [facility] [id number] Univers 11:00:00 11:00:00 ity of [facility] 2020-09-03 2020-09-03 Outpatient R [facility] [id number] Univers 11:00:00 11:00:00 ity of [facility] 2020-09-01 2020-09-01 Emergency [facility] 1.2.080.735 [id number] Univers 01:42:00 07:20:00 Shayla Benavidez 350.1.13.10 ity of [place]2.7.2.[place] [id number] [place] [address] [place] 2020-08-29 2020-08-29 Telephone [facility] 1.2.840.114 [id number] Univers 00:00:00 00:00:00 Mehrdad Alonso Health 350.1.13.10 ity of Cancer 4.2.7.2.686 [facility] [place] - [phone] [facility] [address] 2020-08-28 2020-08-28 Telephone Kalee [facility] 1.2.840.114 [id number] Univers 00:00:00 00:00:00 Health 350.1.13.10 it y of Cancer 4.2.7.2.686 [facility] [place] - [phone] [facility] [address] 2020-08-23 2020-08-[address] [facility] 1.2.977.085 [id number] Univers 17:35:00 22:19:00 Matthias Benavidez 350.1.13.10 i ty of [place] 4.2.7.2.686 [facility] [place] [id number] [address] 2020-08-20 2020-08-20 Deepika Candelario [facility] 1.2.840.114 [id number] Univers 11:14:50 12:08:13 Visit PersonDaquan HEALTH 350.1.13.10 ity of CLINICS 4.2.7.2.686 [facility] [id number] [facility] [address] 2020-08-20 2020-08-20 Outpatient R [facility] [id number] Univers 11:00:00 11:00:00 ity of [facility] 2020-08-20 2020-08-20 Telephone Kalee [facility] 1.2.840.114 [id number] Univers 00:00:00 00:00:00 Health 350.1.13.10 it y of Cancer 4.2.7.2.686 [facility] [place] - [phone] [facility] [address] 2020-08-17 2020-08-18 Emergency [facility] 1.2.309.043 [id number] Univers 19:34:00 00:56:00 Shayla Benavidez 350.1.13.10 ity of [place] 4.2.7.2.686 [facility] [place] [phone] [address] 2020-08-09 2020-08-09 Office Phatak, [facility] 1.2.840.114 [id number] Univers 10:32:05 10:47:05 Visit Health 350.1.13.10 it y of Cancer 4.2.7.2.686 [place] - [phone] [facility] [address] 2020-08-09 2020-08-09 Outpatient R KALEE [facility] [id number] Univers 10:45:00 10:45:00 ity of [facility] 2020-08-09 2020-08-09 Orders Doctor LETICIA 1.2.840.114 [id number] Univers 00:00:00 00:00:00 Only Unassigned, ARMAND 350.1.13.10 [place]y [place] [facility] 4.2.7.2.686 Juan as [id number] [facility] [address] 2020-08-05 2020-08-05 [facility] 1.2.840.114 [id number] Univers 00:00:00 00:00:00 Health 350.1.13.10 it y of Cancer 4.2.7.2.686 [facility] - [phone] [facility] [address] 2020-08-02 2020-08-02 Transition Anne Ramirez 1.2.840.114 [id number] Univers 00:00:00 00:00:00 of Care Destinee Narayanan 350.1.13.10 i ty of [place]2.[place].2.[place] [phone] [facility] [address] 2020-07-23 2020-08-01 Hospital Mercedez Negro 1.2.840 .114 [id number] Univers 11:58:00 17:47:00 Encounter Shayla Munoz 350.1.13.10 ity of [place] Zepeda [facility] 4.2.7.2.686 [facility] [phone] Medical 1 [address] 2020-07-23 2020-07-23 Emergency X [facility] ERT [id number] Univers 11:58:00 11:58:00 MERCEDEZ scott of [facility] 2020-07-23 2020-07-23 Orders Doctor LEITCIA 1.2.840.114 [id number] Univers 00:00:00 00:00:00 Only Unassigned, ARMAND 350.1.13.10 ity [place] [facility] 4.2.7.2.686 [facility] [phone] [facility] [address] 2019-12-09 2019-12-09 Emergency E MHSE MHSE 7503 MH 09:16:00 09:16:[address] [facility] 2019-06-15 2019-06-15 Emergency Justinoscar, [facility] 1.2.840.114 [id number] [facility] 11:46:39 15:08:00 Mary Jo Benavidez 350.1.13.10 ity of [place] 4.2.7.2.[address] [facility] [phone] [place] [address] Branch Results Test Description Test Time Test Comments Results Result Comments Source CBC WITH DIFF 2023-08-22 13:44:36 Test Item Value Reference Range Interpretation Comme nts WBC (test code = 6690-2) 6.50 See_Comment [A utomated message] The system which ge nerated this result transmit carl reference range: 4.30 - 1 1.10 10*3/?L. The reference r madelin was not used to interpr et this result as normal/abnor mal. RBC (test code = 789-8) 4.29 See_Comment [Au tomated message] The system which ge nerated this result transmit carl reference range: 3.93 - 5 .25 10*6/?L. The reference r madelin was not used to interpr et this result as normal/abnor mal. HGB (test code = 718-7) 13.6 g/dL 11.6-15.0 HCT (test code = 4544-3) 40.5 % 35.7-45.2 MCV (test code = 787-2) 94.4 fL 80.6-95.5 MCH (test code = 785-6) 31.7 pg 25.9-32.8 MCHC (test code = 786-4) 33.6 g/dL 31.6-35.1 RDW-SD (test code = 92020-2) 39.2 fL 39.0-49.9 RDW-CV (test code = 788-0) 11.5 % 12.0-15.5 L PLT (test code = 777-3) 289 See_Comment [Au tomated message] The system which ge nerated this result transmit carl reference range: 166 - 35 8 10*3/?L. The reference range was not used to interpret th is result as normal/abnormal . MPV (test code = 27554-5) 10.1 fL 9.5-12.9 IPF % (test code = 3.6 % 1.3-7.7 Platelet count measured by 4719910753) fluorescence me thod. NRBC/100 WBC (test code = 0.5 See_Comment [ Automated message] The 2400763252) system which [employer] nerated this result transmit carl reference range: 0.0 - 10 .0 /100 WBCs. The reference r madelin was not used to interpr et this result as normal/abnor mal. NRBC x10^3 (test code = 0.03 See_Comment [Au tomated message] The 0457758725) system which [employer] nerated this result transmit carl reference range: 10*3/?L. The reference range was not u sed to interpret this result as normal/abnormal . GRAN MAT (NEUT) % (test code 36.2 % = 770-8) IMM GRAN % (test code = 1.40 % 8657653085) LYMPH % (test code = 736-9) 49.5 % MONO % (test code = 5905-5) 9.8 % EOS % (test code = 713-8) 2.0 % BASO % (test code = 706-2) 1.1 % GRAN MAT x10^3(ANC) (test 2.35 10*3/uL 1.88-7.09 code = 7525538943) IMM GRAN x10^3 (test code = 0.09 10*3/uL 0.00-0.06 H 3062202792) LYMPH x10^3 (test code = 3.22 10*3/uL 1.32-3.29 731-0) MONO x10^3 (test code = 0.64 10*3/uL 0.33-0.92 742-7) EOS x10^3 (test code = 0.13 10*3/uL 0.03-0.39 711-2) BASO x10^3 (test code = 0.07 10*3/uL 0.01-0.07 704-7) SABINA CELLS (test code = 2+ See_Comment A [Au tomated message] The 7790-9) system which ge nerated this result transmit carl reference range: (none). The reference range was not u sed to interpret this result as normal/abnormal . LG GRAN LYMPHS (test code = Rare Rare 1458096494) Lab Interpretation (test Abnormal code = 04434-5) [facility]. METABOLIC PANEL (52620)2023-08-22 12:59:16 Test Item Value Reference Range Interpretation Comments NA (test code = 137 mmol/L 135-145 7746518679) K (test code = 4.5 mmol/L 3.5-5.0 1534604643) CL (test code = 102 mmol/L 98-108 4004250490) CO2 TOTAL (test code = 22 mmol/L 23-31 L 5128961707) AGAP (test code = 13 2-16 5385529872) BUN (test code = 18 mg/dL 7-23 4276942372) GLUCOSE (test code = 83 mg/dL 70-110 0197964725) CREATININE (test code = 0.70 mg/dL 0.50-1.04 8831095498) TOTAL BILI (test code = 0.9 mg/dL 0.1-1.0 6339216524) CALCIUM (test code = 9.6 mg/dL 8.6-10.6 2564321069) T PROTEIN (test code = 8.6 g/dL 6.3-8.2 H 0346453027) ALBUMIN (test code = 4.6 g/dL 3.5-5.0 5687723337) ALK PHOS (test code = 82 U/L 34-122 5637777159) ALTv (test code = 20 U/L 5-35 1742-6) AST(SGOT) (test code = 35 U/L 13-40 7097442626) eGFR (test code = 89.3 mL/min/1.73m2 1607407944) RAUDEL (test code = RAUDEL) Association of [...] tests). Lab Interpretation Abnormal (test code = 19482-1) [id number] 12:33:00 Test Item Value Reference Range Interpretation Comments POCT PREG (test code = 1605) Negative On board controls acceptable with Yes C Line (test code = 3574) POCT PREG LOT # (test code = 3575 289679 POCT PREG TEST DATE (test 01/23/2025 code = 3576) Lab Interpretation (test code = Normal 55662-0) [facility]ACT[facility] [id number] 16:14:58 Test Item Value Reference Range Interpretation Comments CRP (test code = 1582901291) 0.3 mg/dL <=0.8 Lab Interpretation (test code = Normal 37248-8) [facility] [id number] 20:01:17 Test Item Value Reference Range Interpretation Comments TROPONIN I (test code = 0.005 ng/mL <=0.034 1658262434) RAUDEL (test code = RAUDEL) Reference (Normal) [...] to patient's use of biotin. Lab Interpretation Normal (test code = 96363-7) [facility]EDIM[facility]ATION [id number] 19:56:40 Test Item Value Reference Range Interpretation Comments ESR (test code = 94044-6) 20 See_Comment [ Automated message] The system [employer] generated this result transmitted ref erence range: 0 - 20 m m/HR. The reference r madelin was not used to interpret this result as normal/abnor mal. Lab Interpretation (test Normal code = 83012-4) [facility] [id number] 13:24:00 Test Item Value Reference Range Interpretation Comments POCT PREG (test code = 1605) Negative On board controls acceptable with Yes C Line (test code = 3574) POCT PREG LOT # (test code = 3575) [id number] POCT PREG TEST DATE (test 11/17/2024 code = 3576) Lab Interpretation (test code = Normal 21593-4) [facility]UM2023-09-21 12:51:14 Test Item Value Reference Range Interpretation Comments MAGNESIUM (test code = 1572970555) 1.4 mg/dL 1.7-2.4 L Lab Interpretation (test code = Abnormal 74836-9) [facility] METABOLIC PANEL (32005)2023-08-05 12:50:54 Test Item Value Reference Range Interpretation Comments NA (test code = 140 mmol/L 135-145 1155205639) K (test code = 3.7 mmol/L 3.5-5.0 5759692672) CL (test code = 103 mmol/L 98-108 5260326369) CO2 TOTAL (test code 30 mmol/L 23-31 = 5112178500) AGAP (test code = 7 2-16 9214455558) BUN (test code = 18 mg/dL 7-23 3530266642) GLUCOSE (test code = 87 mg/dL 70-110 5376478710) CREATININE (test code 0.80 mg/dL 0.50-1.04 = 0075307604) TOTAL BILI (test code 0.3 mg/dL 0.1-1.1 = 5490804972) CALCIUM (test code = 9.1 mg/dL 8.6-10.6 3314311453) T PROTEIN (test code 7.7 g/dL 6.3-8.2 = 2600332122) ALBUMIN (test code = 4.2 g/dL 3.5-5.0 1253360998) ALK PHOS (test code = 67 U/L 34-122 3233430009) ALTv (test code = 23 U/L 5-35 2-6) AST(SGOT) (test code 31 U/L 13-40 = 0878393451) eGFR (test code = 76.6 mL/min/1.73m2 8098579276) RAUDEL (test code = RAUDEL) Association of Glomerular Filtration Rate (GFR) and Staging of Kidney Disease* + + +- +| GFR (mL/min/1.73 m2) ?| With Kidney Damage ?| ?Without Kidney Damage+ ------+ ----+ ------+| ?>90 ?| ?Stage one ?| ? Normal ?+ -+ + -+| ?60-89 ?| ?Stage two ?| ? Decreased GFR ? + + +- +| ?30-59 ?| ?Stage three ?| ? Stage three ? + + +- +| ?15-29 ?| ?Stage four ? | ? Stage four ?+ -+ + -+| ?<15 (or dialysis) ? ?| ?Stage five ? | ? Stage five ?+ -+ + -+ *Each stage assumes the associated GFR level [...] or urine or abnormalities in imaging tests). [facility] Test Item Value Reference Range Interpretation Comments LIPASE (test code = 2970479826) 78 U/L 0-220 Lab Interpretation (test code = Normal 67479-8) [facility] [id number] 12:39:03 Test Item Value Reference Range Interpretation Comments WBC (test code = 6.56 See_Comment [Automated 9390-2) message] The sy stem which generated this result transmitted reference range : 4.30 - 11.10 10*3/?L. The reference range was not used to interpret this result as normal/abnormal . RBC (test code = 4.09 See_Comment [Automated 979-8) message] The sy stem which generated this result transmitted reference range : 3.93 - 5.25 10*6/?L. The reference range was not used to interpret this result as normal/abnormal . HGB (test code = 13.1 g/dL 11.6-15.0 718-7) HCT (test code = 39.5 % 35.7-45.2 4544-3) MCV (test code = 96.6 fL 80.6-95.5 H 787-2) MCH (test code = 32.0 pg 25.9-32.8 785-6) MCHC (test code = 33.2 g/dL 31.6-35.1 786-4) RDW-SD (test code = 40.6 fL 39.0-49.9 23674-6) RDW-CV (test code = 11.4 % 12.0-15.5 L 788-0) PLT (test code = 234 See_Comment [Automated 347-3) message] The sy stem which generated this result transmitted reference range : 166 - 358 10*3/ ?L. The reference r madelin was not used to interpret this result as normal/abnormal . MPV (test code = 10.5 fL 9.5-12.9 35500-8) IPF % (test code = 4.9 % 1.3-7.7 Platelet count 5722994182) measured by fluorescence method. NRBC/100 WBC (test 0.0 See_Comment [Automat ed code = 3435298742) message] The system which generated this result transmitted reference range : 0.0 - 10.0 /100 WBCs. The refer ence range was not u sed to interpret th is result as normal/abnormal . NRBC x10^3 (test code See_Comment [Auto mated = 5284850559) message] The s ystem which generated this result transmitted reference range : 10*3/?L. The reference range was not used to interpret this result as normal/abnormal . GRAN MAT (NEUT) % 32.5 % (test code = 770-8) IMM GRAN % (test code 0.30 % = 1782410255) LYMPH % (test code = 54.9 % 736-9) MONO % (test code = 9.8 % 5905-5) EOS % (test code = 2.0 % 713-8) BASO % (test code = 0.5 % 706-2) GRAN MAT x10^3(ANC) 2.14 10*3/uL 1.88-7.09 (test code = 0137756278) IMM GRAN x10^3 (test 0.00-0.06 code = 5610234089) LYMPH x10^3 (test code 3.60 10*3/uL 1.32-3.29 H = 731-0) MONO x10^3 (test code 0.64 10*3/uL 0.33-0.92 = 742-7) EOS x10^3 (test code = 0.13 10*3/uL 0.03-0.39 711-2) BASO x10^3 (test code 0.03 10*3/uL 0.01-0.07 = 704-7) Lab Interpretation Abnormal (test code = 22091-9) [facility] [id number] 14:52:01 Test Item Value Reference Range Interpretation Comments TROPONIN I (test code = 0.005 ng/mL <=0.034 0612745977) RAUDEL (test code = RAUDEL) Reference (Normal) [...] to patient's use of biotin. Lab Interpretation Normal (test code = 84491-9) [facility] DDE-CVV4881-89-11 14:48:36 Test Item Value Reference Range Interpretation Comments NT-proBNP (test code = 35 pg/mL <=125 3276615329) RAUDEL (test code = RAUDEL) Biotin has been reported to cause a negative bias, interpret results relative to patient's use of biotin. Lab Interpretation (test Normal code = 50497-4) [facility]COMP[facility] METABOLIC PANEL (86457)2023-03-25 14:41:17 Test Item Value Reference Range Interpretation Comments NA (test code = 139 mmol/L 135-145 5774284603) K (test code = 4.0 mmol/L 3.5-5.0 2538586210) CL (test code = 101 mmol/L 98-108 3924881169) CO2 TOTAL (test code = 29 mmol/L 23-31 0441635125) AGAP (test code = 9 2-16 0739888371) BUN (test code = 17 mg/dL 7-23 3781650578) GLUCOSE (test code = 117 mg/dL 70-110 H 8897406767) CREATININE (test code = 0.81 mg/dL 0.50-1.04 9083495107) TOTAL BILI (test code = 0.8 mg/dL 0.1-1.9 3495275074) CALCIUM (test code = 9.6 mg/dL 8.6-10.6 2004772380) T PROTEIN (test code = 7.8 g/dL 6.3-8.2 6161283246) ALBUMIN (test code = 4.4 g/dL 3.5-5.0 9978741535) ALK PHOS (test code = 66 U/L 34-122 5659356543) ALTv (test code = 23 U/L 5-35 2-6) AST(SGOT) (test code = 27 U/L 13-40 2728476740) eGFR (test code = 75.5 mL/min/1.73m2 2636003238) RAUDEL (test code = RAUDEL) Association of [...] tests). Lab Interpretation Abnormal (test code = 19969-8) [facility]2023-[facility]-11 14:40:57 Test Item Value Reference Range Interpretation Comments LIPASE (test code = 2387005935) 74 U/L 0-220 Lab Interpretation (test code = Normal 03845-4) [facility]CB WITH VISU2097-15-28 14:15:35 Test Item Value Reference Range Interpretation [...] RDW-SD (test code = 41.0 fL 39.0-49.9 36081-2) RDW-CV (test code = 11.8 % 12.0-15.5 L 788-0) PLT (test code = 262 See_Comment [Automated 777-3) message] The sy stem which generated this result transmitted reference range : 166 - 358 10*3/ ?L. The reference r madelin was not used to interpret this result as normal/abnormal . MPV (test code = 10.2 fL 9.5-12.9 07897-4) NRBC/100 WBC (test 0.0 See_Comment [Automat ed code = 0428502414) message] The system which generated this result transmitted reference range : 0.0 - 10.0 /100 WBCs. The refer ence range was not u sed to interpret th is result as normal/abnormal . NRBC x10^3 (test code See_Comment [Auto mated = 1551664484) message] The s ystem which generated this result transmitted reference range : 10*3/?L. The reference range was not used to interpret this result as normal/abnormal . GRAN MAT (NEUT) % 81.2 % (test code = 770-8) IMM GRAN % (test code 0.40 % = 5600422623) LYMPH % (test code = 12.5 % 736-9) MONO % (test code = 4.5 % 5905-5) EOS % (test code = 0.9 % 713-8) BASO % (test code = 0.5 % 706-2) GRAN MAT x10^3(ANC) 6.34 10*3/uL 1.88-7.09 (test code = 0580684360) IMM GRAN x10^3 (test 0.03 10*3/uL 0.00-0.06 code = 7064312635) LYMPH x10^3 (test code 0.98 10*3/uL 1.32-3.29 L = 731-0) MONO x10^3 (test code 0.35 10*3/uL 0.33-0.92 = 742-7) EOS x10^3 (test code = 0.07 10*3/uL 0.03-0.39 711-2) BASO x10^3 (test code 0.04 10*3/uL 0.01-0.07 = 704-7) Lab Interpretation Abnormal (test code = 25572-6) [facility]ELVIS W/KFOA5242-55-53 13:55:00 [facility] 1975 Sex: F Name: EDEN CHAKRABORTY [facility] : 1975 Age/S: 45 / F [address] Unit #: [id number] Loc: [place] [address] Phys: Lemuel Villanueva DO Acct: [id number] Dis Date: Status: REG ER PHONE #: [phone] Exam Date: 03/20/2021 1337 FAX #: Reason: epigastric pain, h/o Crohn's, SBO EXAMS: CPT: [id number] CT ABD PELVIS W/CONT 63539 Site ID: [id number] CLINICAL HISTORY: Epigastric abdominal [...] joint arthritis. IMPRESSION: No acute findings at 1352 Reported and signed by: Kang Bates M.D. PAGE 1 Signed Report (CONTINUED) Name: EDEN CHAKRABORTY Miles : 1975 Age/S: 45 / F [address] [address] Unit #: [id number] Loc: [place] [address] Phys: Lemuel Villanueva DOAcct: [id number] Dis Date: Status: REG ER PHONE #: [phone] Exam Date: 03/20/2021 1331 FAX #:Reason: epigastric pain, h/o Crohn's, SBO EXAMS: CPT: [id number] CT ABD PELVIS W/CONT 63059 <Continued> CC: Lemuel Villanueva DO Technologist:Che Anthony RT(R)(CT) CTDI: DLP: Trnscb Date/Time: 03/20/2021 (1814) t.[email or web address] Orig Print D/T: S: 03/20/2021 (2155) PAGE 2 Signed Report- XR RIBS UNI W/CXR 3+V KH3800-70-01 13:47:00 [facility] 1975 Sex: F Name: EDEN CHAKRABORTY Miles : 1975 Age/S: 45 / F [address] Unit #: [id number] Loc: [place] [address] Phys: Lemuel Villanueva DO Acct: [id number] Dis Date: Status: REG ER PHONE#: [phone] Exam Date: 03/20/2021 1231 FAX #: Reason: left rib pain EXAMS: CPT: [id number] XR RIBS UNI W/CXR 3+[place] [address] Fluoro Time: DAP (Gy m2): Air Kerma [...] PAGE 1 Signed Report Name: EDEN CHAKRABORTY Miles : 1975 Age/S: 45 / F [address] Unit #: [id number] Loc: [place] [address] Phys: Lemuel Villanueva DO Acct: [id number] Dis Date: Status: REG ER PHONE #: [phone] Exam Date: 03/20/2021 1231 FAX #: Reason: left rib pain EXAMS: CPT: [id number] XR RIBS UNI W/CXR 3+[place] [address] Fluoro Time: DAP(Gy m2): Air Kerma (mGy): <Continued> Technologist: Cady Pendleton, RT(R)(MR) Trnscb Date/Time: 03/20/2021 (6137) [email or web address] Orig Print D/T: S: 03/20/2021 (9019) PAGE 2 Signed ReportHCG SERUM 2021-03-20 12:51:00 Test Item Value Reference Range Interpretation Comments HCG SERUM (test < 1 mi-IU/ML 0-6 N 0 - 6 NOT P REGNANT > 6 code = HCG) SUGGESTIVE OF E ERIS RISE S TWO FOLD EVERY 2 DA YS; SUGGEST RECONFI RMING AFTER 2 DAYS. 150,000-200,[address] TRIMESTER 10,00 0 - 50,000 2ND & 3R D TRIMESTER BASIC METABOLIC [id number] 12:49:00 Test Item Value Reference Range Interpretation [...] 8.5-10.1 N Completed by Nursing: NOHEPATIC FUNCTION [id number] 12:49:00 Test Item Value Reference Range Interpretation [...] N code = ALKP) Completed by Nursing: [id number] 12:49:00 Test Item Value Reference Range Interpretation Comments LIPASE (test code = LIP) 77 Unit/L 114-286 L Completed by Nursing: TYJWAANCSU-Q1626-29-06 12:49:00 Test Item Value Reference Range Interpretation [...] tarun yby method. Completed by Nursing: NOPROTHROMBIN ASAZ8225-07-20 12:25:00 Test Item Value Reference Range Interpretation Comments PT PATIENT (test code = PTP) 10.7 SECONDS 9.3-12.9 N INTERNATIONAL NORMAL RATIO 0.96 INR Unit 0.8-1.2 N (test code = INR) CBC W/AUTO [id number] 12:23:00 Test Item Value Reference Range Interpretation [...] = MDIFF) UA RFLX MICR CULT IF [id number] 12:18:00 Test Item Value Reference Range Interpretation [...] URINE: CLEAN CATCHUA RFLX MICR CULT IF [id number] 12:18:00 Test Item Value Reference Range Interpretation [...] RiskForSepsis-no oth srcSOURCE OF URINE: CLEAN CATCHLACTIC PVET5099-18-29 11:59:00 Test Item Value Reference Range Interpretation Comments LACTIC ACID (test code = LACT) 1.3 mmol/L 0.4-2.0 N - XR KNEE 3 V [id number] 21:05:00 [facility] : 1975 Sex: F Patient Name: EDEN CHAKRABORTY Unit No: [id number] EXAMS: CPT CODE: [id number] XR KNEE 3 V [place] [address] Location: H3 Right knee x-ray exam: 3 [...] [email or web address] Orig Print D/T: S: 01/10/2021 (2107) [facility] NAME: EDEN CHAKRABORTY [address] PHYS: [place] [address] : 1975 AGE: 45 SEX: F LOC: [place] PHONE #: [phone] EXAM DATE: 01/10/2021 STATUS: REG ER FAX #: [phone] RADIOLOGY NO: [id number] PAGE 1 Signed ReportCBC WITH DIFF 2020-10-29 [...] (test code = 51.6 fL 39-49.9 H 61338-0) RDW-CV (test code = 14.3 % 12-15.5 788-0) PLT (test code = See_Comment H [Automated 777-3) message] The sy stem which generated this result transmitted reference range : 166 - 358 10*3/ ?L. The reference r madelin was not used to interpret this result as normal/abnormal . MPV (test code = 8.9 fL 9.5-12.9 L 05842-9) NRBC/100 WBC (test See_Comment [Automat ed code = 3004622935) message] The system which generated this result transmitted reference range : 0.0 - 10.0 /100 WBCs. The refer ence range was not u sed to interpret th is result as normal/abnormal . NRBC x10^3 (test code <0.01 See_Comment [Auto mated = 3378820418) message] The s [employer] which generated this result transmitted reference range : 10*3/?L. The reference range was not used to interpret this result as normal/abnormal . GRAN MAT (NEUT) % 43.5 % (test code = 770-8) IMM GRAN % (test code 0.50 % = 8455216784) LYMPH % (test code = 36.9 % 736-9) MONO % (test code = 11.5 % 5905-5) EOS % (test code = 6.5 % 713-8) BASO % (test code = 1.1 % 706-2) GRAN MAT x10^3(ANC) 2.80 10*3/uL 1.88-7.09 (test code = 4085521732) IMM GRAN x10^3 (test 0.03 10*3/uL 0-0.06 code = 1690330704) LYMPH x10^3 (test code 2.37 10*3/uL 1.32-3.29 = 731-0) MONO x10^3 (test code 0.74 10*3/uL 0.33-0.92 = 742-7) EOS x10^3 (test code = 0.42 10*3/uL 0.03-0.39 H 711-2) BASO x10^3 (test code 0.07 10*3/uL 0.01-0.07 = 704-7) Lab Interpretation Abnormal (test code = 27085-4) [facility] Metabolic Panel (NA, K, CL, CO2, GLUCOSE, BUN, CREATININE, CA)2020-10-29 10:07:00 Test Item Value Reference Range Interpretation Comments NA (test code = 133 mmol/L 135-145 L 0701115674) K (test code = 4.3 mmol/L 3.5-5 3511935327) CL (test code = 102 mmol/L 98-108 2533453766) CO2 TOTAL (test code = 28 mmol/L 23-31 5959179474) AGAP (test code = 2-16 1326783279) BUN (test code = 3 mg/dL 7-23 L 4486684654) GLUCOSE (test code = 103 mg/dL 70-110 0232422012) CREATININE (test code = 0.62 mg/dL 0.5-1.04 6106733032) CALCIUM (test code = 8.4 mg/dL 8.6-10.6 L 5173282486) eGFR Calculation mL/min/1.73m2 (Non-) (test code = 5981888501) eGFR Calculation mL/min/1.73m2 () (test code = 3406508339) RAUDEL (test code = RAUDEL) Association of [...] tests). Lab Interpretation Abnormal (test code = 42353-6) [facility] Wfaty2667-95-90 10:07:00 Test Item Value Reference Range Interpretation Comments MAGNESIUM (test code = 1428886659) 1.5 mg/dL 1.7-2.4 L Lab Interpretation (test code = Abnormal 62947-1) [facility] [id number] 13:44:00 Test Item Value Reference Range Interpretation Comments URINE CULTURE (test < 10,000 CFU/mL mixed code = 630-4) aerobic organisms - suggests endogenous microbial contamination [facility] HospitalPhosphorus Dmkyd6900-08-50 10:45:00 Test Item Value Reference Range Interpretation Comments PHOSPHORUS (test code = 1619874509) 3.4 mg/dL 2.5-5 Lab Interpretation (test code = Normal 99070-6) [facility] (NA, K, CL, CO2, GLUCOSE, BUN, CREATININE, CA)2020-10-28 10:45:00 Test Item Value Reference Range Interpretation Comments NA (test code = 135 mmol/L 135-145 9615501182) K (test code = 4.0 mmol/L 3.5-5 6068566178) CL (test code = 101 mmol/L 98-108 4481819983) CO2 TOTAL (test code = 31 mmol/L 23-31 8838693983) AGAP (test code = 2-16 6111864883) BUN (test code = 4 mg/dL 7-23 L 9826029195) GLUCOSE (test code = 100 mg/dL 70-110 9901090843) CREATININE (test code = 0.70 mg/dL 0.5-1.04 9864313750) CALCIUM (test code = 8.3 mg/dL 8.6-10.6 L 5027156057) eGFR Calculation mL/min/1.73m2 (Non-) (test code = 1676540778) eGFR Calculation mL/min/1.73m2 () (test code = 9228360963) RAUDEL (test code = RAUDEL) Association of [...] tests). Lab Interpretation Abnormal (test code = 58767-4) [facility] [id number] 10:45:00 Test Item Value Reference Range Interpretation Comments MAGNESIUM (test code = 6200523222) 1.8 mg/dL 1.7-2.4 Lab Interpretation (test code = Normal 65063-0) [facility] WITH [id number] 10:13:00 Test Item Value Reference Range Interpretation [...] RDW-SD (test code = 48.4 fL 39-49.9 97760-8) RDW-CV (test code = 13.8 % 12-15.5 788-0) PLT (test code = See_Comment H [Automated 777-3) message] The sy stem which generated this result transmitted reference range : 166 - 358 10*3/ ?L. The reference r madelin was not used to interpret this result as normal/abnormal . MPV (test code = 9.1 fL 9.5-12.9 L 56764-4) NRBC/100 WBC (test See_Comment [Automat ed code = 8722797710) message] The system which generated this result transmitted reference range : 0.0 - 10.0 /100 WBCs. The refer ence range was not u sed to interpret th is result as normal/abnormal . NRBC x10^3 (test code <0.01 See_Comment [Auto mated = 6095545958) message] The s ystem which generated this result transmitted reference range : 10*3/?L. The reference range was not used to interpret this result as normal/abnormal . GRAN MAT (NEUT) % 55.3 % (test code = 770-8) IMM GRAN % (test code 0.40 % = 9312491294) LYMPH % (test code = 29.4 % 736-9) MONO % (test code = 9.4 % 5905-5) EOS % (test code = 5.1 % 713-8) BASO % (test code = 0.4 % 706-2) GRAN MAT x10^3(ANC) 3.83 10*3/uL 1.88-7.09 (test code = 8859087002) IMM GRAN x10^3 (test 0.03 10*3/uL 0-0.06 code = 8180840431) LYMPH x10^3 (test code 2.04 10*3/uL 1.32-3.29 = 731-0) MONO x10^3 (test code 0.65 10*3/uL 0.33-0.92 = 742-7) EOS x10^3 (test code = 0.35 10*3/uL 0.03-0.39 711-2) BASO x10^3 (test code 0.03 10*3/uL 0.01-0.07 = 704-7) Lab Interpretation Abnormal (test code = 92815-2) [facility] Rwifq6272-62-34 07:50:00 Test Item Value Reference Range Interpretation Comments MAGNESIUM (test code = 4100988227) 1.1 mg/dL 1.7-2.4 L Lab Interpretation (test code = Abnormal 30832-6) [facility]IS2020-12-13 07:50:00 Test Item Value Reference Range Interpretation Comments APPEARANCE (test code = Hazy Clear A 1113806621) COLOR (test code = Yellow Yellow 9056640623) PH (test code = 4.8-8.0 2398796805) SP GRAVITY (test code = 1.003-1.030 2476928889) GLU U QUAL (test code = Normal Normal 4406733374) BLOOD (test code = Negative Negative 9164669462) KETONES (test code = Negative Negative 4562886202) PROTEIN (test code = Negative Negative 2887-8) UROBILIN (test code = Normal Normal 3369766749) BILIRUBIN (test code = Negative Negative 7701215763) NITRITE (test code = Negative Negative 3785020997) LEUK CHELY (test code = 25/uL Negative A 7290097700) RBC/HPF (test code = See_Comment [Autom ated message] 6895809957) The system [employer] generated this result transmitted ref erence range: 0 - 3 HP F. The reference range was not used to int erpret this result as normal/abnormal . WBC/HPF (test code = See_Comment [Autom ated message] 9085553319) The system [employer] generated this result transmitted ref erence range: 0 - 5 HP F. The reference range was not used to int erpret this result as normal/abnormal . BACTERIA (test code = Negative Negative 1212410134) MUCOUS (test code = Slight Negative LPF A 6899902476) SQ EPITH (test code = See_Comment [Auto mated message] 2592743801) The system [employer] generated this result transmitted ref erence range: <=2 HPF. The reference range was not used to int erpret this result as normal/abnormal . Lab Interpretation (test Abnormal code = 30314-2) [facility] Metabolic Panel (NA, K, CL, CO2, GLUCOSE, BUN, CREATININE, CA)2020-10-27 07:45:00 Test Item Value Reference Range Interpretation Comments NA (test code = 135 mmol/L 135-145 5948085728) K (test code = 3.2 mmol/L 3.5-5 L 6805402675) CL (test code = 99 mmol/L 98-108 9366981110) CO2 TOTAL (test code = 35 mmol/L 23-31 H 6535718764) AGAP (test code = 2-16 L 5285383145) BUN (test code = 3 mg/dL 7-23 L 7630930524) GLUCOSE (test code = 104 mg/dL 70-110 2406027566) CREATININE (test code = 0.66 mg/dL 0.5-1.04 1540687058) CALCIUM (test code = 7.5 mg/dL 8.6-10.6 L 2512894064) eGFR Calculation mL/min/1.73m2 (Non-) (test code = 5070788334) eGFR Calculation mL/min/1.73m2 () (test code = 3528028152) RAUDEL (test code = RAUDEL) Association of [...] tests). Lab Interpretation Abnormal (test code = 21509-5) [facility] with Xshepckunkwp9161-09-68 07:24:00 Test Item Value Reference Range Interpretation [...] RDW-SD (test code = 46.6 fL 39-49.9 34116-8) RDW-CV (test code = 13.7 % 12-15.5 788-0) PLT (test code = See_Comment H [Automated 777-3) message] The sy stem which generated this result transmitted reference range : 166 - 358 10*3/ ?L. The reference r madelin was not used to interpret this result as normal/abnormal . MPV (test code = 9.1 fL 9.5-12.9 L 48620-3) NRBC/100 WBC (test See_Comment [Automat ed code = 8471829296) message] The system which generated this result transmitted reference range : 0.0 - 10.0 /100 WBCs. The refer ence range was not u sed to interpret th is result as normal/abnormal . NRBC x10^3 (test code <0.01 See_Comment [Auto mated = 4564719867) message] The s [employer] which generated this result transmitted reference range : 10*3/?L. The reference range was not used to interpret this result as normal/abnormal . GRAN MAT (NEUT) % 52.0 % (test code = 770-8) IMM GRAN % (test code 0.50 % = 2555548245) LYMPH % (test code = 34.7 % 736-9) MONO % (test code = 8.6 % 5905-5) EOS % (test code = 3.7 % 713-8) BASO % (test code = 0.5 % 706-2) GRAN MAT x10^3(ANC) 3.19 10*3/uL 1.88-7.09 (test code = 6538876599) IMM GRAN x10^3 (test 0.03 10*3/uL 0-0.06 code = 9907920446) LYMPH x10^3 (test code 2.13 10*3/uL 1.32-3.29 = 731-0) MONO x10^3 (test code 0.53 10*3/uL 0.33-0.92 = 742-7) EOS x10^3 (test code = 0.23 10*3/uL 0.03-0.39 711-2) BASO x10^3 (test code 0.03 10*3/uL 0.01-0.07 = 704-7) Lab Interpretation Abnormal (test code = 99546-8) [facility] COVID FGSMUGLTYSAQCC7920-95-20 00:32:00COVID DMT InterpretationInterpretation/Recommendations: Molecular NAAT Tests for Active Infection with the SARS-CoV-2 Virus: This patient has a history of testing negative on multiple occasions for coiEEEU-IeK-0 virus that causes COVID-19 illness, with no [...] upon aggregate COVID-19 test results pooled from [facility]. They apply to the following tests offered at [facility] and assume the acceptable specimen type(s) were used: A. Tests for the Identification of SARS-CoV-2 RNA (Molecular NAAT Tests): ?- SARS-CoV-2 PCR assays including PantherAptima, Volin Fusion, Villarreal RealTime, and [facility] Xpert Xpress. ?- SARS-CoV-2 Rapid ID NOW by the ID NOW assay. ? B. Tests for the Identification of SARS-CoV-2 Antibodies: ?- Chemiluminescent immunoassays including Access SARS-CoV-2 IgM (DXI 600), [employer] Vbez-ZKPA-WjV-2 IgG (Vitros 5600and Vitros 3600), and Villarreal SARS-CoV-2 IgG (IRON MELTER I System). These interpretations are autopopulated into [facility] based on computerized algorithms matching an [...] ? [facility] LABORATORY SERVICESCOVID LbhknbvOJPS-WzZ-3 Rapid ID NOW (no units) ? ? Date ? Value ? 10/24/2020 ? Not Detected ? ? ? 2020 ? Not Detected ? ? ? 09/25/2020 ? Not Detected ? ? ? 09/10/2020 ? Not Detected ?? ? 09/04/2020 ? Not Detected ? ? ? 08/17/2020 ? Not Detected ? ? ? 07/23/2020 ? Not Detected ? [facility] LABORATORY SERVICESUnLake Granbury Medical CenterCBC with Differential 2020-10-26 11:58:00 Test [...] RDW-SD (test code = 47.2 fL 39-49.9 78152-0) RDW-CV (test code = 14.5 % 12-15.5 788-0) PLT (test code = See_Comment H [Automated 777-3) message] The sy stem which generated this result transmitted reference range : 166 - 358 10*3/ ?L. The reference r madelin was not used to interpret this result as normal/abnormal . MPV (test code = 10.1 fL 9.5-12.9 61741-6) NRBC/100 WBC (test See_Comment [Automat ed code = 1670426996) message] The system which generated this result transmitted reference range : 0.0 - 10.0 /100 WBCs. The refer ence range was not u sed to interpret th is result as normal/abnormal . NRBC x10^3 (test code <0.01 See_Comment [Auto mated = 5798249083) message] The s ystem which generated this result transmitted reference range : 10*3/?L. The reference range was not used to interpret this result as normal/abnormal . GRAN MAT (NEUT) % 50.3 % (test code = 770-8) IMM GRAN % (test code 0.50 % = 8259736413) LYMPH % (test code = 36.9 % 736-9) MONO % (test code = 7.6 % 5905-5) EOS % (test code = 4.2 % 713-8) BASO % (test code = 0.5 % 706-2) GRAN MAT x10^3(ANC) 2.76 10*3/uL 1.88-7.09 (test code = 3478184986) IMM GRAN x10^3 (test 0.03 10*3/uL 0-0.06 code = 9315518946) LYMPH x10^3 (test code 2.03 10*3/uL 1.32-3.29 = 731-0) MONO x10^3 (test code 0.42 10*3/uL 0.33-0.92 = 742-7) EOS x10^3 (test code = 0.23 10*3/uL 0.03-0.39 711-2) BASO x10^3 (test code 0.03 10*3/uL 0.01-0.07 = 704-7) Lab Interpretation Abnormal (test code = 61757-4) [facility] [id number] 04:43:00 Test Item Value Reference Range Interpretation Comments MAGNESIUM (test code = 6081152697) 1.0 mg/dL 1.7-2.4 L Lab Interpretation (test code = Abnormal 70094-0) [facility] (NA, K, CL, CO2, GLUCOSE, BUN, CREATININE, CA)2020-10-26 04:43:00 Test Item Value Reference Range Interpretation Comments NA (test code = 136 mmol/L 135-145 8822756623) K (test code = 2.8 mmol/L 3.5-5 LL 4570005751) CL (test code = 97 mmol/L 98-108 L 3254200417) CO2 TOTAL (test code = 35 mmol/L 23-31 H 8750374715) AGAP (test code = 2-16 8310143952) BUN (test code = 3 mg/dL 7-23 L 7009044575) GLUCOSE (test code = 116 mg/dL 70-110 H 1271117026) CREATININE (test code = 0.81 mg/dL 0.5-1.04 2438197185) CALCIUM (test code = 7.2 mg/dL 8.6-10.6 L 0589571270) eGFR Calculation mL/min/1.73m2 (Non-) (test code = 8796011806) eGFR Calculation mL/min/1.73m2 () (test code = 9831713076) RAUDEL (test code = RAUDEL) Association of [...] tests). Lab Interpretation Abnormal (test code = 69033-0) [facility] [id number] 04:35:00 Test Item Value Reference Range Interpretation Comments PHOSPHORUS (test code = 5217879142) 3.0 mg/dL 2.5-5 Lab Interpretation (test code = Normal 13195-7) [facility] with Lzrtywbeyxgk2532-35-35 04:11:00 Test Item Value Reference Range Interpretation Comments WBC (test code = See_Comment [Automated 4990-2) message] The sy stem which generated this result transmitted reference range : 4.30 - 11.10 10*3/?L. The reference range was not used to interpret this result as normal/abnormal . RBC (test code = See_Comment L [Automated 325-8) message] The sy stem which generated this [...] RDW-SD (test code = 45.6 fL 39-49.9 92555-8) RDW-CV (test code = 13.4 % 12-15.5 788-0) PLT (test code = See_Comment H [Automated 777-3) message] The sy stem which generated this result transmitted reference range : 166 - 358 10*3/ ?L. The reference r madelin was not used to interpret this result as normal/abnormal . MPV (test code = 9.2 fL 9.5-12.9 L 25904-7) NRBC/100 WBC (test See_Comment [Automat ed code = 6045481877) message] The system which generated this result transmitted reference range : 0.0 - 10.0 /100 WBCs. The refer ence range was not u sed to interpret th is result as normal/abnormal . NRBC x10^3 (test code <0.01 See_Comment [Auto mated = 5919479698) message] The s ystem which generated this result transmitted reference range : 10*3/?L. The reference range was not used to interpret this result as normal/abnormal . GRAN MAT (NEUT) % 55.9 % (test code = 770-8) IMM GRAN % (test code 0.40 % = 5482401757) LYMPH % (test code = 31.9 % 736-9) MONO % (test code = 8.4 % 5905-5) EOS % (test code = 3.1 % 713-8) BASO % (test code = 0.3 % 706-2) GRAN MAT x10^3(ANC) 3.80 10*3/uL 1.88-7.09 (test code = 0427821071) IMM GRAN x10^3 (test 0.03 10*3/uL 0-0.06 code = 7900715658) LYMPH x10^3 (test code 2.17 10*3/uL 1.32-3.29 = 731-0) MONO x10^3 (test code 0.57 10*3/uL 0.33-0.92 = 742-7) EOS x10^3 (test code = 0.21 10*3/uL 0.03-0.39 711-2) BASO x10^3 (test code <0.03 0.01-0.07 = 704-7) Lab Interpretation Abnormal (test code = 32899-3) [facility] [id number] 14:39:02 1. ?Postsurgical changes of recent ileostomy [...] AND FINDINGS: [facility], labeled with the patients name, [...] AND FINDINGS: [facility] [...] reviewed this study and agree with theabove report.[facility] (ID NOW RAPID TESTING)2020-10-25 01:48:00 Test Item Value Reference Range Interpretation Comments SARS-CoV-2 Rapid ID NOW Not Detected Not Detected (test code = 91511-5) RAUDEL (test code = RAUDEL) ID NOW COVID-19 Assay is an isothermal nucleic acid amplification test intended for the qualitative detection of nucleic acid from SARS-CoV-2 viral RNA in nasopharyngeal (BRAID CUTTER) specimens. It is used under Emergency Use [...] acid from SARS-CoV-2 viral RNA in nasopharyngeal (BRAID CUTTER) specimens. It is used under Emergency Use [...] indicated. Lab Interpretation Normal (test code = 02672-1) [facility] METABOLIC PANEL (NA, K, CL, CO2, GLUCOSE, BUN, CREATININE, CA)2020-10-24 23:16:00 Test Item Value Reference Range Interpretation Comments NA (test code = 137 mmol/L 135-145 0405752759) K (test code = 3.5 mmol/L 3.5-5 4182260623) CL (test code = 101 mmol/L 98-108 7682877368) CO2 TOTAL (test code = 31 mmol/L 23-31 6342875028) AGAP (test code = 2-16 7950495834) BUN (test code = 5 mg/dL 7-23 L 8494064100) GLUCOSE (test code = 80 mg/dL 70-110 2040550034) CREATININE (test code = 0.57 mg/dL 0.5-1.04 6295337038) CALCIUM (test code = 7.4 mg/dL 8.6-10.6 L 1134725475) eGFR Calculation mL/min/1.73m2 (Non-) (test code = 2628106335) eGFR Calculation mL/min/1.73m2 () (test code = 0961930593) RAUDEL (test code = RAUDEL) Association of [...] tests). Lab Interpretation Abnormal (test code = 92090-0) [facility] WITH [id number] 23:09:00 Test Item Value Reference Range Interpretation [...] RDW-SD (test code = 46.5 fL 39-49.9 48922-6) RDW-CV (test code = 13.4 % 12-15.5 788-0) PLT (test code = See_Comment H [Automated 777-3) message] The sy stem which generated this result transmitted reference range : 166 - 358 10*3/ ?L. The reference r madelin was not used to interpret this result as normal/abnormal . MPV (test code = 9.4 fL 9.5-12.9 L 93741-2) NRBC/100 WBC (test See_Comment [Automat ed code = 3567940218) message] The system which generated this result transmitted reference range : 0.0 - 10.0 /100 WBCs. The refer ence range was not u sed to interpret th is result as normal/abnormal . NRBC x10^3 (test code <0.01 See_Comment [Auto mated = 3015207724) message] The s ystem which generated this result transmitted reference range : 10*3/?L. The reference range was not used to interpret this result as normal/abnormal . GRAN MAT (NEUT) % 54.7 % (test code = 770-8) IMM GRAN % (test code 0.50 % = 9314993763) LYMPH % (test code = 35.9 % 736-9) MONO % (test code = 6.3 % 5905-5) EOS % (test code = 2.3 % 713-8) BASO % (test code = 0.3 % 706-2) GRAN MAT x10^3(ANC) 3.37 10*3/uL 1.88-7.09 (test code = 1849832056) IMM GRAN x10^3 (test 0.03 10*3/uL 0-0.06 code = 7217162830) LYMPH x10^3 (test code 2.21 10*3/uL 1.32-3.29 = 731-0) MONO x10^3 (test code 0.39 10*3/uL 0.33-0.92 = 742-7) EOS x10^3 (test code = 0.14 10*3/uL 0.03-0.39 711-2) BASO x10^3 (test code <0.03 0.01-0.07 = 704-7) Lab Interpretation Abnormal (test code = 05911-1) [facility]FF[facility]ILE [id number] 17:18:00 Test Item Value Reference Range Interpretation Comments Clostridioides (Clostridium) Negative Negative difficile (test code = 30971-7) Lab Interpretation (test code = Normal 85200-6) [facility] (NA, K, CL, CO2, GLUCOSE, BUN, CREATININE, CA)2020-10-17 23:42:00 Test Item Value Reference Range Interpretation Comments NA (test code = 135 mmol/L 135-145 6626609932) K (test code = 4.0 mmol/L 3.5-5 9955784583) CL (test code = 105 mmol/L 98-108 8730991060) CO2 TOTAL (test code = 22 mmol/L 23-31 L 6224039702) AGAP (test code = 2-16 0921275874) BUN (test code = 8 mg/dL 7-23 9272446987) GLUCOSE (test code = 127 mg/dL 70-110 H 9836141913) CREATININE (test code = 0.96 mg/dL 0.5-1.04 1402447034) CALCIUM (test code = 8.7 mg/dL 8.6-10.6 3896011780) eGFR Calculation mL/min/1.73m2 (Non-) (test code = 5234468357) eGFR Calculation mL/min/1.73m2 () (test code = 2011684448) RAUDEL (test code = RAUDEL) Association of [...] tests). Lab Interpretation Abnormal (test code = 65185-2) [facility] [id number] 19:12:00 Test Item Value Reference Range Interpretation Comments Case Report (test code Surgical Pathology ? ? = [id number]) ?Case: [id number] ? Authorizing Provider: ?Darren Chun MD ?Collected: ? 10/14/2020 0901 ?Ordering Location: ? ? [facility] OR ? Received: ?10/14/2020 1106 ? Department ? Pathologist: ? Marian Gr MD ? Specimens: ? A) - STOMA, Ileostomy ? B) - COLON, Ileocolic anastamosis ? Final Diagnosis (test j8uryFRrHJVtt6wjDHHteF code = 2507496111) FuZzEwMzNcZnRuYmpcdWMx NPkndbZpOFhlg3FrI3DkNl AwMFxhbnNpXGRlZmxhbmcx QFPhZFJ1frNyYQYmJKwoNT FiFOfjZp5ejSKnoTcbFfMy WRSyg0kzwqBJbpyjyVp9n7 coMRNySrV7vKXzCKjgH1lm ruLamAJsLCUjYRu0eT72HV HcjG4zmXBqEAcvdpIlZuJ5 KTixRVYyGvS1IRJsrXKnVA IyK7bjLUNfHGpzRVQfMVna uDQdATN2gMjjc8G7aFAfwI GvjBuyFaVpUwStRUGDa8Ot VJo6fMhqV4GjODAdAuL7wZ QgUGFyYWdyYXBoIEZvbnQ7 gV17URllpoR3cDRzb4Ckc1 3nr078dB3qeJImNOQ6BMOp GLTblEUsYIHrPJB5SUWesP QuC4caQJvkDY5haktjOEH9 MFxtYXJndDcyMFxtYXJnYj NzeSOkFRDwwXmwNLeew851 ZTP1NeJrQR7eI7Qzc0U6dM 9maXRcZGVmdGFiNzIwXGZv nf1udCUaCNlgv6YkYYH9pf L0eBOlwBQpHAIbNM59Frro w8VeGainRAW9DANkfgOgk7 Xds5utVuMbreFyN1tzI3Bs ZHJoZWFkXHBnYnJkcmZvb3 Iwn1OdmHJowUp9q0leVSUf REMapGdjr2upOZG4IHJmH7 E8kGSbl2yaEMjiTHEohPS7 ngRgMGMtpNGkI9DejP6aHD ilMP4rpwx6a3ppFkQsKP7b lvlkt3rqPUxmLEGcZTR6Iy VrBMLgl9AiiavtItIsg8Sb iKXrEFdrV27qo363FBGwhw UiL2izsGQorcehuLPorksz GJjgbsF2YLLmXRGzEJdxQK YxXGZzMjBcbGFuZzEwMzNc aGljaFxmMVxkYmNoXGYxXG lmC1tgHlAdFrQyEYszCFQw PM3iW42MD27sYNgCVV5CSZ 6ENMRUOD2MULmyIFtGORZJ N477JAJhvmSgIRUmYL3lGt USGOsNUQCBKC6cBM8UUEfT JYDBXNCBF5FUUFUMUIGYNA DFR6YRSSJMGXKXAmiAE6MR Y33wBA7MOLKPMoEAG5WgIY NEA4tQEymzcNShVJMpLDPk MBJgQ01WD2qXBKSNSOLAHB PTQQdYMN5CKU1EHKjnJILs cOSeDBQsXMUJSB4OWWMRXS DVO35UIOLpJJ8FP9PGCG2O EROiOJMKS1qGSV8XZnwnFC IgICAgICAtIEJFTklHTiBD X1xHHmMAXxRiABtZJJfpYS tZN0TCULhGXExrG57IQ9DC ETGYXUOJD3WQJSpiI27OI3 aNSKJNHHIGBHQTSOjFMQ7Y X5yKW8dxUBJwEFCpRRLiNQ SMWbPBLV0DS5XWA6qkEZV0 h1ofzZYkMOXnwODoFyAiYO PuVTVxg0ccLEElxYAxKvHt MzNcZnRuYmpcdWMxXGRlZm Ujo7wrf011zQHzc5tnVEVg DtV0kMAeCNEykPasurl6rE jaMgZnPKImt6quqlMeXdDo PEGeJSCdXHBfmGZwL388AT VrSBzpj0gxg5HwGPQqvPWq l2S0XZJYBKjwGcWgK493p8 bff8izmfWniWY4GYKgXXK3 QNfrqaZkduS9RGumaJLyOb L4VCwjseQaNOazxyCmheSq Jcx1POWoY522FPS1eIhmb1 dnQRV0PBDgDZOyQixoQi5r yOGcT130EEKzIWUJUCGndX m4DLRmkhRylaRlnRYHk854 G532x7ecDRPvaxXunAzEjw mzo9hgI159VTJhxDQpexBl UsHyXANfrARtgYR9DWOyTB 5vwhbrXMssECfcTHMvkpV6 YBYajPKaZ4SkMUZsQA8hdw dkTNH5YOkvWZVoDBX9ZiTn VCIsd5Njqka0QmAvtd7yhq 79QCE2w4IrjBuuWNO0DAV3 UpBqUp5zkMFcPSKaRE2qTr HguBHfQGRsvq64tHrsIImg jmZeeC6lCsLzREDouOKjVD JnZO4thNKbLLIegQ7iqykq XHBnYnJkcmhlYWRccGdicm PyVr6rmEeyDSU6UEouQ4pd lL3pNfY9IOyiV8tttD2tMC c2QTclvLN8VYCoqL6lET6o uqacz7ynGImrPTdeSHRrop H1kuM0QQRjdNNqQ7VhwG9n STMnVZ6pradvq7rcWOG6GC zrUXKaAJR8DpSnENUxs2Fn aut9FpHpx0AdeIAhKKjvX6 6js532JONsrrRgS0kxaHSo uqqmwUXvtwwzKYedlpJ6SZ FsXHBsYWluXGYxXGZzMjBc bGFuZzEwMzNcaGljaFxmMV yzMeLoFZBzSKyyR9ubPuJl F7NoAAPrOgEktSCyOJbyoI U6VNGlEGBaq94boLv6IGRw qfpgp0SnWBPjiHYqePPfpR 9tfuRhp9wzBBIdAJUaNSMb C2VpFXT1fDEuMHXdwYVweU C9QW2jeeTyHA3tZPWwHdkf cmVzaWRlbnRzLCBmZWxsb3 ejCU6tPPPjjVaptG2beLZ4 YCHvq9oyhWObaKJck2vbe8 UgbmFtZShzKSBtYXkgYXBw KRPwSZ5bKWFocPAinqTij7 G1BnqncASpuqbiWncdhuH3 WKuvktgyHRNqWHccD6ezOe XwEQBdeHsmHazzx3FcACKn XGZzMjhccGFyfX0= Clinical Information Ileostomy care [Z43.2] (test code = 3870953538) Gross Description (test d0preBPqGNDoeXQcXeCgEK code = 6404076168) ZpNMQzy7zqMVHdkCRkMcJr MzNcZnRuYmpcdWMxXGRlZm Cbz3bqj724zBYhm4omDDDc InI3bHGlCWBxdZAeV139RI WkYHuqd6iih7FdEJPxoTXe v2F7IOJAktimuMr8kHcgC1 8ra8S5UxroD6mzSIMgCKUi B8FoCC8uUNDsSbx2NCM8CY N0STYxFRDhZ0InGX5yKRVf uVYkGXx4v1uvwZctRLClPR M7y0ymBTmocnDgZJ9cbr0a nOt7b7csosWxURBuHTVytY YBIJAzH3WlkYywNw0vgLl2 eJtdCrlhRDI8Dov8BX4lid 72zup2fJfdIAEtynyiOkC3 LPtlJGRgvkbhRWv3IQooJR IbrGXpVFEruVRdH6AuGRyp RK9okcd3RxEsFI3ykfxeFP ivVUUkUAA4ApZaCNSki5Yj mfeiMaXnfq3mfo97DME5p5 MxuMouZDY5CPF4TzJzAv2f zMHiKETkMK0kWnEmaEHlRY Twnw59zXphPBcswcLfbO5p OhRgCYAkwVKfILZoMG9jrG HjRBKhbM6imqstADRsBzSe mekxDLIusAceyuFvXv8kpT boBCC1SCmpR0ybzL0yOrF5 KIhnN2ieyR6wYKc7JCvnwH R9NDXyaM0rPO6zjygxl2ov OAT4DKyvGMMdomW6lkMdVX ZjhSAkG3GrjG74GlDdsXCl F7YpgL8zCSrhPDXxlio9Dl VcIw5yeZUpaWM3QMibMxhw YWdlXHBnbmNvbnRccGduZG VjXHBsYWluXHBsYWluXGYw LOXnPoXfbGcncKjigZ9qIe MeZeCtMCnrTM4vEHFzV0jk tOBzJVQqXHEqN7aoMqBktM 9jaFxmMVxmczIwIFNwZWNp rAOlWUJdhlJkWPm6UTTlSf Quh1qotVVvICecIPV0wICr wMI0sHKezCtpTD0riMFvQP MIGW36lOYilufkPrDwPeQs bSgff1KaNPEgwMAyu7HfsH zhy6IbiDYjCXWdJGRux33w hZG0brYwRiQcgdPhuCVlt9 HkzXlgwNXbSZYei13vn5Nr Z9qhGS8zx0l5mEInNVC2qn mwY3MjyTvnk0G7gIEwNVSe eU3lTSQfgeQvNAThqDDsxO ZqEJWpg8K7BUVgM84dggTi l7EdVh11ICimCNJpPCBytR DcjcOnCA5ryLacJF9rWAFc NiBjbSBkaWFtZXRlcikuIC NAsZLrt0VeFC93T87dMUWb wUH2vPKgh3KbnAXdeGTvHU GsucFyqJMlgDXtcF2jI9Hd rY84WL8il0g7qQYqIXSzvY 8msqkbHR7dZFItkRUnqJSv MSZvoR9cPNCmJtVfpIirMA MaWYEtuGJwoIUpiAUuH5vj FYubHBVbnI27DQGnSY1sDT OeKKCfaBOgpU3ttaNlcoMa iFBvROKxfqX5JGPokR8tON VucmVtYXJrYWJsZSBpbnRl i3MplhOlEK18Z20gUH8qBf PtbxCuXC68YORgiaJnGqXg jF25vDwkf09oo0UimHVltL KrZMrjiOggxcPoNVV8lE6q qyExkoWwh3OtjEr4iUGpLD FzIEExXHBsYWluXGYwXGZz MjBcbGFuZzEwMzNcaGljaF adLNibAdBzJVEuZIquH0al MqJxEjBaBWq3PVCnJUCpHt s1JHBmKHwdLYHnGLEdBzRq bGFuZzEwMzNcaGljaFxmMV biQsXmYJWbGPehJ5myZfBt EfMaNIJHTb4hiWCuCBGnvg EKaZQajB9ueiAWTQJzH9Xz dmVkIGZyZXNoIGxhYmVsZW Zvh2c8yAG0vQQprSE5xLGa oTblQE9zaBUiFOJNOV36zS CeruywDwYgWjRdgVudr4Ko JTOcmGDnQ59opFKfIQ7rh1 VetW0jnNVhQKBiTOFso57a rIG1yuXoZzWyepRgsjKjV5 DfGHUcq4WctVLxwMZqZzSc fmQvcA4nq9BrQVSxd8xzoS K8nTGdQW63rSZcvVuiKHH6 FOJzFMVzUVEhfU9fKQz5Ao JrrPAsCkGwwDGgTgevZ55f ZuWpR9BqkCqxYD9lbcdgrv SxHQUaLWEcaTYes7UyEFCo UTTqrlWoeqE9oxFjoPHve4 JtgRAoC49kv18wOpZcawWs dExhKIsxhOHbm8GyOFRuMT TffwLlBI23YyUsAElwGQjo xZUvy4SwLTwjczQsJHFneO fliCJesUImd3w0hW9fUEpe bHltcGhvaWQgaHlwZXJwbG FdnFPpGKWpEYQcRK5wDN0x USEvpJXtk2ByrKG7hLUuIW ImI1Tiv69lLNDjUUOvpGOs kFL1LWLcRQMiWhZjvPmolV 0zGlCdMnWqXAnpNJ1gAPOh W3eqnCXfEBTeNMJbR4htDj VngG3hoTjjTCakbfQyEUE5 IuShNWjnXDWerDxhqF8zXa LeWjUaDZvwUJ7lEODzD4kr pQSdGVHnUKZvF2viUbWciZ 9jaFxmMVxmczIwIEIyLlxw YXJccGFyXHBhcmRccGxhaW 5cZjBcZnMyNFxwbGFpblxm MVxmczIwXGxhbmcxMDMzXG pvN5ssBeLmBHQcsIbnDZkl f4DoGUOgNDJzArPxKJZ7mZ RJjN05ZYPeEOViSKWnuJgo fC1jzZL5NMQwi7iolYXylD lccGFyfQ== Embedded Images (test code = 8513037051) [facility] by PCR, [id number] 21:21:00 Test Item Value Reference Range Interpretation Comments MSSA Screen by Phill BERMUDEZ (test code Negative Negative = 66907-5) MRSA/MSSA Positive? (test code = No No [id number]) Lab Interpretation (test code = Normal 16509-8) [facility]inalysis2020-11-18 06:06:00 Test Item Value Reference Range Interpretation Comments APPEARANCE (test code = Cloudy Clear A 2468227901) COLOR (test code = Kathleen Yellow A 4765650679) PH (test code = 4.8-8.0 1604014367) SP GRAVITY (test code = 1.003-1.030 9684364868) GLU U QUAL (test code = Normal Normal 8720192067) BLOOD (test code = 1+ Negative A 2136975148) KETONES (test code = 5 mg/dL Negative A 5571797872) PROTEIN (test code = 100 mg/dL Negative A 2887-8) UROBILIN (test code = 2.0 mg/dL Normal A 3099796554) BILIRUBIN (test code = Negative Negative 1821953312) NITRITE (test code = Negative Negative 9145687346) LEUK CHELY (test code = Negative Negative 5850836071) RBC/HPF (test code = See_Comment H [Autom ated message] 3458814934) The system [employer] generated this result transmit carl reference range : 0 - 3 HPF. The refe rence range was not u sed to interpret th is result as normal/abnormal . WBC/HPF (test code = See_Comment [Autom ated message] 4777489829) The system [employer] generated this result transmit carl reference range : 0 - 5 HPF. The refe rence range was not u sed to interpret th is result as normal/abnormal . BACTERIA (test code = Moderate Negative A 6979640234) MUCOUS (test code = Marked Negative LPF A 5043836598) SQ EPITH (test code = HPF 5601590419) CA OXALATE (test code = See_Comment H [Au tomated message] 5493566335) The system [employer] generated this result transmit carl reference range : <=1 HPF. The refere nce range was not u sed to interpret th is result as normal/abnormal . HYAL CAST (test code = See_Comment H [Aut omated message] 0403369291) The system [employer] generated this result transmit carl reference range : <=2 LPF. The refere nce range was not u sed to interpret th is result as normal/abnormal . GRAN CASTS (test code = See_Comment H [Au tomated message] 9232065812) The system [employer] generated this result transmit carl reference range : <=1 LPF. The refere nce range was not u sed to interpret th is result as normal/abnormal . Lab Interpretation (test Abnormal code = 44644-1) [facility] (ALB, T.PRO, BILI T, BU/BC, ALT, AST, ALK PHOS)2020-10-02 05:46:00 Test Item Value Reference Range Interpretation Comments TOTAL BILI (test code = 9302063092) 1.0 mg/dL 0.1-1.1 BILI UNCON (test code = 2953636291) 0.6 mg/dL 0.1-1.1 BILI CONJ (test code = 9073858336) 0.0 mg/dL 0-0.3 T PROTEIN (test code = 7622465819) 9.9 g/dL 6.3-8.2 H ALBUMIN (test code = 7407850857) 5.4 g/dL 3.5-5 H ALK PHOS (test code = 9629051784) 153 U/L 34-122 H ALTv (test code = 1742-6) 62 U/L 5-35 H AST(SGOT) (test code = 1511627380) 51 U/L 13-40 H Lab Interpretation (test code = Abnormal 05497-9) [facility] [id number] 05:46:00 Test Item Value Reference Range Interpretation Comments LIPASE (test code = 9852397274) 117 U/L 0-220 Lab Interpretation (test code = Normal 09759-4) [facility] (NA, K, CL, CO2, GLUCOSE, BUN, CREATININE, CA)2020-10-02 05:46:00 Test Item Value Reference Range Interpretation Comments NA (test code = 135 mmol/L 135-145 4210881688) K (test code = 4.4 mmol/L 3.5-5 2306155708) CL (test code = 102 mmol/L 98-108 0173988132) CO2 TOTAL (test code = 19 mmol/L 23-31 L 7608746948) AGAP (test code = 2-16 2553700611) BUN (test code = 19 mg/dL 7-23 2109505645) GLUCOSE (test code = 135 mg/dL 70-110 H 7309970297) CREATININE (test code = 1.19 mg/dL 0.5-1.04 H 7673445590) CALCIUM (test code = 11.3 mg/dL 8.6-10.6 H 7406334448) eGFR Calculation mL/min/1.73m2 (Non-) (test code = 6512674436) eGFR Calculation mL/min/1.73m2 () (test code = 7423073826) RAUDEL (test code = RAUDEL) Association of [...] tests). Lab Interpretation Abnormal (test code = 74296-7) [facility] with Vrpgecgdmrrt4499-81-89 05:34:00 Test Item Value Reference Range Interpretation Comments WBC (test code = See_Comment [Automated 1149-2) message] The sy stem which generated this result transmitted reference range : 4.30 - 11.10 10*3/?L. The reference range was not used to interpret this result as normal/abnormal . RBC (test code = See_Comment [Automated 167-3) message] The sy stem which generated this [...] RDW-SD (test code = 40.6 fL 39-49.9 76116-4) RDW-CV (test code = 11.9 % 12-15.5 L 788-0) PLT (test code = See_Comment H [Automated 777-3) message] The sy stem which generated this result transmitted reference range : 166 - 358 10*3/ ?L. The reference r madelin was not used to interpret this result as normal/abnormal . MPV (test code = 9.9 fL 9.5-12.9 67871-6) NRBC/100 WBC (test See_Comment [Automat ed code = 8188381594) message] The system which generated this result transmitted reference range : 0.0 - 10.0 /100 WBCs. The refer ence range was not u sed to interpret th is result as normal/abnormal . NRBC x10^3 (test code <0.01 See_Comment [Auto mated = 0342957966) message] The s ystem which generated this result transmitted reference range : 10*3/?L. The reference range was not used to interpret this result as normal/abnormal . GRAN MAT (NEUT) % 38.8 % (test code = 770-8) IMM GRAN % (test code 0.20 % = 6085707243) LYMPH % (test code = 51.7 % 736-9) MONO % (test code = 7.4 % 5905-5) EOS % (test code = 0.9 % 713-8) BASO % (test code = 1.0 % 706-2) GRAN MAT x10^3(ANC) 2.27 10*3/uL 1.88-7.09 (test code = 3857102905) IMM GRAN x10^3 (test <0.03 0-0.06 code = 5940626729) LYMPH x10^3 (test code 3.02 10*3/uL 1.32-3.29 = 731-0) MONO x10^3 (test code 0.43 10*3/uL 0.33-0.92 = 742-7) EOS x10^3 (test code = 0.05 10*3/uL 0.03-0.39 711-2) BASO x10^3 (test code 0.06 10*3/uL 0.01-0.07 = 704-7) Lab Interpretation Abnormal (test code = 68645-8) [id number]:03:00 Test Item Value Reference Range Interpretation Comments HCV by Real-Time Not Detected Not detected IU/mL PCR (test code = 5088552583) RAUDEL (test code = [employer] m2000 RealTime HCV RAUDEL) reverse county tax assessor-polymerase chain reaction(RT-PCR) assay is used. It is [...] 0 IU/mL,>100,000,000 IU/mL: >upper limit of quantification. [facility] ([id number])2020-09-16 15:03:00 Test Item Value Reference Range Interpretation Comments NA (test code = 135 mmol/L 135-145 9913545376) K (test code = 4.4 mmol/L 3.5-5 9136498442) CL (test code = 111 mmol/L 98-108 H 7835125643) CO2 TOTAL (test code = 21 mmol/L 23-31 L 9427885928) AGAP (test code = 2-16 9309190681) BUN (test code = 11 mg/dL 7-23 8636782684) GLUCOSE (test code = 115 mg/dL 70-110 H 5881067971) CREATININE (test code = 0.83 mg/dL 0.5-1.04 1066586092) TOTAL BILI (test code = 0.5 mg/dL 0.1-1.2 1990818372) CALCIUM (test code = 8.3 mg/dL 8.6-10.6 L 2857904375) T PROTEIN (test code = 5.4 g/dL 6.3-8.2 L 3222378975) ALBUMIN (test code = 2.8 g/dL 3.5-5 L 5694450640) ALK PHOS (test code = 71 U/L 34-122 8665971115) ALTv (test code = 31 U/L 5-35 1742-6) AST(SGOT) (test code = 31 U/L 13-40 6275500576) eGFR Calculation mL/min/1.73m2 (Non-) (test code = 2186359599) eGFR Calculation mL/min/1.73m2 () (test code = 6088674183) RAUDEL (test code = RAUDEL) Association of [...] tests). Lab Interpretation Abnormal (test code = 70034-5) [facility] METABOLIC PANEL ([id number])2020-09-15 11:19:00 Test Item Value Reference Range Interpretation Comments NA (test code = 135 mmol/L 135-145 7195658272) K (test code = 3.9 mmol/L 3.5-5 2243811842) CL (test code = 104 mmol/L 98-108 0062520582) CO2 TOTAL (test code = 27 mmol/L 23-31 3094752102) AGAP (test code = 2-16 8030965785) BUN (test code = 15 mg/dL 7-23 9702368466) GLUCOSE (test code = 153 mg/dL 70-110 H 0020757627) CREATININE (test code = 0.91 mg/dL 0.5-1.04 4448432048) TOTAL BILI (test code = 0.4 mg/dL 0.1-1.2 2182281164) CALCIUM (test code = 9.2 mg/dL 8.6-10.6 4902737550) T PROTEIN (test code = 7.2 g/dL 6.3-8.2 4371556091) ALBUMIN (test code = 3.8 g/dL 3.5-5 4597924370) ALK PHOS (test code = 106 U/L 34-122 4034687414) ALTv (test code = 43 U/L 5-35 H 1742-6) AST(SGOT) (test code = 28 U/L 13-40 0079488004) eGFR Calculation mL/min/1.73m2 (Non-) (test code = 9628316323) eGFR Calculation mL/min/1.73m2 () (test code = 1514067818) RAUDEL (test code = RAUDEL) Association of [...] tests). Lab Interpretation Abnormal (test code = 27934-6) [facility][id number][facility] (ALB,T.PRO,BILI T,BU/BC,ALT,AST,ALK PHOS)2020-09-14 19:50:00 Test Item Value Reference Range Interpretation Comments TOTAL BILI (test code = 8421450974) 0.5 mg/dL 0.1-1.1 BILI UNCON (test code = 6239262017) 0.4 mg/dL 0.1-1.1 BILI CONJ (test code = 7177740302) 0.0 mg/dL 0-0.3 T PROTEIN (test code = 4407383341) 6.5 g/dL 6.3-8.2 ALBUMIN (test code = 8937794944) 3.4 g/dL 3.5-5 L ALK PHOS (test code = 7565767359) 95 U/L 34-122 ALTv (test code = 1742-6) 45 U/L 5-35 H AST(SGOT) (test code = 1446801453) 31 U/L 13-40 Lab Interpretation (test code = Abnormal 11548-9) [facility] [id number] 18:49:00 Test Item Value Reference Range Interpretation Comments CK (test code = 4565424468) 44 U/L 33-194 Lab Interpretation (test code = Normal 42928-3) [facility] (NA, K, CL, CO2, GLUCOSE, BUN, CREATININE, CA)2020-09-14 17:05:00 Test Item Value Reference Range Interpretation Comments NA (test code = 136 mmol/L 135-145 3801443502) K (test code = 3.9 mmol/L 3.5-5 1734850617) CL (test code = 104 mmol/L 98-108 0090858857) CO2 TOTAL (test code = 27 mmol/L 23-31 6913703627) AGAP (test code = 2-16 8388320823) BUN (test code = 17 mg/dL 7-23 6427255338) GLUCOSE (test code = 114 mg/dL 70-110 H 4757174174) CREATININE (test code = 0.84 mg/dL 0.5-1.04 5735703483) CALCIUM (test code = 8.9 mg/dL 8.6-10.6 8255987140) eGFR Calculation mL/min/1.73m2 (Non-) (test code = 0668433351) eGFR Calculation mL/min/1.73m2 () (test code = 9637243893) RAUDEL (test code = RAUDEL) Association of [...] tests). Lab Interpretation Abnormal (test code = 39890-1) [facility] B SURFACE [id number] 16:44:00 Test Item Value Reference Range Interpretation Comments HBsAB (test code = Negative 0052243447) HBsAb mIU/mL Semi-Quantitative (test code = 9555663546) RAUDEL (test code = Interpretation: RAUDEL) ?Hepatitis B Surface Antibody ? Negative - Patient is considered to be not immune to infection with HBV. ? ? Positive - Anti-HBs detected at greater than or equal to 12 mIU/mL. ?Patient is considered to be immune to infection with HBV. ? [facility] B SURFACE [id number] 16:27:00 Test Item Value Reference Range Interpretation Comments HBsAg Semi-Quantitative (test code = Negative Negative 5195-3) [facility]2020-10-31 04:05:00 Test Item Value Reference Range Interpretation Comments MAGNESIUM (test code = 2811277939) 1.6 mg/dL 1.7-2.4 L Lab Interpretation (test code = Abnormal 35758-2) [id number] 20:02:00 Test Item Value Reference Range Interpretation Comments TROPONIN I (test <0.012 See_Comment [Automated code = 4055833487) message] The system which generated this result [...] ? Lab Interpretation Normal (test code = 60933-6) [facility]. METABOLIC PANEL ([id number])2020-09-13 17:43:00 Test Item Value Reference Range Interpretation Comments NA (test code = 139 mmol/L 135-145 0613331780) K (test code = 4.5 mmol/L 3.5-5 6382148548) CL (test code = 99 mmol/L 98-108 9389990410) CO2 TOTAL (test code = 31 mmol/L 23-31 5631630838) AGAP (test code = 2-16 9512782540) BUN (test code = 14 mg/dL 7-23 3067965768) GLUCOSE (test code = 115 mg/dL 70-110 H 1053273185) CREATININE (test code = 1.31 mg/dL 0.5-1.04 H 0310621924) TOTAL BILI (test code = 1.4 mg/dL 0.1-1.1 H 6598945575) CALCIUM (test code = 10.6 mg/dL 8.6-10.6 4374346284) T PROTEIN (test code = 9.1 g/dL 6.3-8.2 H 7202430453) ALBUMIN (test code = 4.7 g/dL 3.5-5 3242597403) ALK PHOS (test code = 160 U/L 34-122 H 7045120524) ALTv (test code = 84 U/L 5-35 H 1742-6) AST(SGOT) (test code = 51 U/L 13-40 H 7409159908) eGFR Calculation mL/min/1.73m2 (Non-) (test code = 2840651429) eGFR Calculation mL/min/1.73m2 () (test code = 5518537432) RAUDEL (test code = RAUDEL) Association of [...] tests). Lab Interpretation Abnormal (test code = 82589-5) [facility] 17[facility]43:00 Test Item Value Reference Range Interpretation Comments LIPASE (test code = 5330035504) 88 U/L 0-220 Lab Interpretation (test code = Normal 83879-1) [facility] WITH [id number] 17:31:00 Test Item Value Reference Range Interpretation Comments WBC (test code = See_Comment [Automated 0971-2) message] The sy stem which generated this result transmitted reference range : 4.30 - 11.10 10*3/?L. The reference range was not used to interpret this result as normal/abnormal . RBC (test code = See_Comment [Automated 786-8) message] The sy stem which generated this [...] RDW-SD (test code = 44.9 fL 39-49.9 84493-2) RDW-CV (test code = 12.9 % 12-15.5 788-0) PLT (test code = See_Comment H [Automated 777-3) message] The sy stem which generated this result transmitted reference range : 166 - 358 10*3/ ?L. The reference r madelin was not used to interpret this result as normal/abnormal . MPV (test code = 9.7 fL 9.5-12.9 77194-5) NRBC/100 WBC (test See_Comment [Automat ed code = 9323258868) message] The system which generated this result transmitted reference range : 0.0 - 10.0 /100 WBCs. The refer ence range was not u sed to interpret th is result as normal/abnormal . NRBC x10^3 (test code <0.01 See_Comment [Auto mated = 8507870407) message] The s ystem which generated this result transmitted reference range : 10*3/?L. The reference range was not used to interpret this result as normal/abnormal . GRAN MAT (NEUT) % 80.0 % (test code = 770-8) IMM GRAN % (test code 0.50 % = 2941298105) LYMPH % (test code = 10.4 % 736-9) MONO % (test code = 7.1 % 5905-5) EOS % (test code = 1.5 % 713-8) BASO % (test code = 0.5 % 706-2) GRAN MAT x10^3(ANC) 7.11 10*3/uL 1.88-7.09 H (test code = 3762392140) IMM GRAN x10^3 (test 0.04 10*3/uL 0-0.06 code = 3840433242) LYMPH x10^3 (test code 0.92 10*3/uL 1.32-3.29 L = 731-0) MONO x10^3 (test code 0.63 10*3/uL 0.33-0.92 = 742-7) EOS x10^3 (test code = 0.13 10*3/uL 0.03-0.39 711-2) BASO x10^3 (test code 0.04 10*3/uL 0.01-0.07 = 704-7) Lab Interpretation Abnormal (test code = 19703-8) [facility] 2 [id number] 17:08:57Overall, bowel gas pattern is felt to [...] pelvis.Ostomy appliance projects over the right lower quadrant.[facility]. METABOLIC PANEL (31535)2020-09-01 07:34:00 Test Item Value Reference Range Interpretation Comments NA (test code = 137 mmol/L 135-145 2949816331) K (test code = 3.6 mmol/L 3.5-5 1119498479) CL (test code = 100 mmol/L 98-108 4065068022) CO2 TOTAL (test code = 26 mmol/L 23-31 8612093022) AGAP (test code = 2-16 0089438471) BUN (test code = 19 mg/dL 7-23 8658528962) GLUCOSE (test code = 171 mg/dL 70-110 H 6100696160) CREATININE (test code = 0.98 mg/dL 0.5-1.04 2434103931) TOTAL BILI (test code = 0.8 mg/dL 0.1-1.8 7783812116) CALCIUM (test code = 10.4 mg/dL 8.6-10.6 2964719464) T PROTEIN (test code = 8.9 g/dL 6.3-8.2 H 3543011511) ALBUMIN (test code = 4.9 g/dL 3.5-5 6882525707) ALK PHOS (test code = 109 U/L 34-122 0934612004) ALTv (test code = 46 U/L 5-35 H 1742-6) AST(SGOT) (test code = 26 U/L 13-40 1200694715) eGFR Calculation mL/min/1.73m2 (Non-) (test code = 4311154171) eGFR Calculation mL/min/1.73m2 () (test code = 6542223115) RAUDEL (test code = RAUDEL) Association of [...] tests). Lab Interpretation Abnormal (test code = 21021-9) [facility] 07:34:00 Test Item Value Reference Range Interpretation Comments LIPASE (test code = 2447909660) 103 U/L 0-220 Lab Interpretation (test code = Normal 80444-5) [facility] WITH [id number] 07:19:00 Test Item Value Reference Range Interpretation Comments WBC (test code = See_Comment [Automated 9630-2) message] The sy stem which generated this result transmitted reference range : 4.30 - 11.10 10*3/?L. The reference range was not used to interpret this result as normal/abnormal . RBC (test code = See_Comment [Automated 955-8) message] The sy stem which generated this [...] RDW-SD (test code = 40.4 fL 39-49.9 25402-8) RDW-CV (test code = 12.1 % 12-15.5 788-0) PLT (test code = See_Comment [Automated 777-3) message] The sy stem which generated this result transmitted reference range : 166 - 358 10*3/ ?L. The reference r madelin was not used to interpret this result as normal/abnormal . MPV (test code = 10.7 fL 9.5-12.9 28792-7) NRBC/100 WBC (test See_Comment [Automat ed code = 4768898222) message] The system which generated this result transmitted reference range : 0.0 - 10.0 /100 WBCs. The refer ence range was not u sed to interpret th is result as normal/abnormal . NRBC x10^3 (test code <0.01 See_Comment [Auto mated = 2097875077) message] The s ystem which generated this result transmitted reference range : 10*3/?L. The reference range was not used to interpret this result as normal/abnormal . GRAN MAT (NEUT) % 77.7 % (test code = 770-8) IMM GRAN % (test code 0.20 % = 7987376620) LYMPH % (test code = 18.3 % 736-9) MONO % (test code = 3.5 % 5905-5) EOS % (test code = 0.0 % 713-8) BASO % (test code = 0.3 % 706-2) GRAN MAT x10^3(ANC) 4.63 10*3/uL 1.88-7.09 (test code = 2436770397) IMM GRAN x10^3 (test <0.03 0-0.06 code = 5334859786) LYMPH x10^3 (test code 1.09 10*3/uL 1.32-3.29 L = 731-0) MONO x10^3 (test code 0.21 10*3/uL 0.33-0.92 L = 742-7) EOS x10^3 (test code = <0.03 0.03-0.39 L 711-2) BASO x10^3 (test code <0.03 0.01-0.07 = 704-7) Lab Interpretation Abnormal (test code = 13821-8) [facility] 02:48:00 Test Item Value Reference Range Interpretation Comments LIPASE (test code = 4222740180) 171 U/L 0-220 Lab Interpretation (test code = Normal 05973-0) [facility] WITH [id number] 02:25:00 Test Item Value Reference Range Interpretation Comments WBC (test code = See_Comment [Automated message] 6690-2) The system [employer] generated this result transmitted ref erence range: 4.30 - 1 1.10 10*3/?L. The re ference range was not u sed to interpret this result as normal/abnor mal. RBC (test code = See_Comment [Automated message] 789-8) The system [employer] generated this result transmitted ref erence range: [...] RDW-SD (test code 42.3 fL 39-49.9 = 83220-8) RDW-CV (test code 12.1 % 12-15.5 = 788-0) PLT (test code = See_Comment [Automated message] 747-3) The system [employer] generated this result transmitted ref erence range: 166 - 35 8 10*3/?L. The re ference range was not u sed to interpret this result as normal/abnor mal. MPV (test code = 11.0 fL 9.5-12.9 31088-6) NRBC/100 WBC (test See_Comment [Automat ed message] code = 3963966338) The [employer] m which generated this result transmitted ref erence range: 0.0 - 10 .0 /100 WBCs. The refer ence range was not u sed to interpret this result as normal/abnor mal. NRBC x10^3 (test <0.01 See_Comment [Automated message] code = 0025002931) The syste m which generated this result transmitted ref erence range: 10*3/?L. The reference range was not used to interpr et this result as normal/abnormal . GRAN MAT (NEUT) % 44.5 % (test code = 770-8) IMM GRAN % (test 0.20 % code = 0052250125) LYMPH % (test code 43.0 % = 736-9) MONO % (test code 9.5 % = 5905-5) EOS % (test code = 1.7 % 713-8) BASO % (test code 1.1 % = 706-2) GRAN MAT 2.35 10*3/uL 1.88-7.09 x10^3(ANC) (test code = 2090946171) IMM GRAN x10^3 <0.03 0-0.06 (test code = 7864332549) LYMPH x10^3 (test 2.27 10*3/uL 1.32-3.29 code = 731-0) MONO x10^3 (test 0.50 10*3/uL 0.33-0.92 code = 742-7) EOS x10^3 (test 0.09 10*3/uL 0.03-0.39 code = 711-2) BASO x10^3 (test 0.06 10*3/uL 0.01-0.07 code = 704-7) [facility] PELVIS W [id number] 03:50:29Addendum by Rhett Harden MD on 08/17/2020 11:01 PM* * * * * * * * ADDENDUM: * * * * * * * * The finding regarding left breast nodule was discussed with Dr MunozSslygssk45/3/2020 10:53 PM Preliminary Report Dictated by Resident: [...] reviewed this study and agree with theabove report.[facility] (ID NOW RAPID TESTING) 2020-08-18 01:55:00 Test Item Value Reference Range Interpretation Comments SARS-CoV-2 Rapid ID NOW Not Detected Not Detected (test code = 90063-9) RAUDEL (test code = RAUDEL) ID NOW COVID-19 Assay is an isothermal nucleic acid amplification test intended for the qualitative detection of nucleic acid from SARS-CoV-2 viral RNA in nasopharyngeal (BRAID CUTTER) specimens. It is used under Emergency Use [...] indicated. Lab Interpretation Normal (test code = 33324-9) [facility]. METABOLIC PANEL (82202)2020-08-18 01:47:00 Test Item Value Reference Range Interpretation Comments NA (test code = 135 mmol/L 135-145 6990426817) K (test code = 4.1 mmol/L 3.5-5 1329276870) CL (test code = 96 mmol/L 98-108 L 7909508422) CO2 TOTAL (test code = 30 mmol/L 23-31 1473257625) AGAP (test code = 2-16 4854124165) BUN (test code = 17 mg/dL 7-23 1532469256) GLUCOSE (test code = 149 mg/dL 70-110 H 6178164851) CREATININE (test code = 1.21 mg/dL 0.5-1.04 H 6250356365) TOTAL BILI (test code = 0.7 mg/dL 0.1-1.8 3096681100) CALCIUM (test code = 10.5 mg/dL 8.6-10.6 5983197579) T PROTEIN (test code = 8.6 g/dL 6.3-8.2 H 8804853110) ALBUMIN (test code = 4.4 g/dL 3.5-5 8748226218) ALK PHOS (test code = 170 U/L 34-122 H 1306426332) ALTv (test code = 145 U/L 5-35 H 1742-6) AST(SGOT) (test code = 70 U/L 13-40 H 3688439304) eGFR Calculation mL/min/1.73m2 (Non-) (test code = 3346909886) eGFR Calculation mL/min/1.73m2 () (test code = 2210779380) RAUDEL (test code = RAUDEL) Association of [...] tests). Lab Interpretation Abnormal (test code = 21248-9) [facility] 01:47:00 Test Item Value Reference Range Interpretation Comments LIPASE (test code = 8091493320) 172 U/L 0-220 Lab Interpretation (test code = Normal 40084-2) [facility] [id number] 01:34:00 Test Item Value Reference Range Interpretation Comments WBC (test code = See_Comment [Automated 6428-2) message] The sy stem which generated this result transmitted reference range : 4.30 - 11.10 10*3/?L. The reference range was not used to interpret this result as normal/abnormal . RBC (test code = See_Comment [Automated 112-9) message] The sy stem which generated this [...] RDW-SD (test code = 41.1 fL 39-49.9 75012-3) RDW-CV (test code = 11.8 % 12-15.5 L 788-0) PLT (test code = See_Comment [Automated 777-3) message] The sy stem which generated this result transmitted reference range : 166 - 358 10*3/ ?L. The reference r madelin was not used to interpret this result as normal/abnormal . MPV (test code = 10.4 fL 9.5-12.9 12870-9) NRBC/100 WBC (test See_Comment [Automat ed code = 2436402302) message] The system which generated this result transmitted reference range : 0.0 - 10.0 /100 WBCs. The refer ence range was not u sed to interpret th is result as normal/abnormal . NRBC x10^3 (test code <0.01 See_Comment [Auto mated = 0240969703) message] The s ystem which generated this result transmitted reference range : 10*3/?L. The reference range was not used to interpret this result as normal/abnormal . GRAN MAT (NEUT) % 50.9 % (test code = 770-8) IMM GRAN % (test code 0.40 % = 9962844015) LYMPH % (test code = 35.9 % 736-9) MONO % (test code = 9.9 % 5905-5) EOS % (test code = 2.2 % 713-8) BASO % (test code = 0.7 % 706-2) GRAN MAT x10^3(ANC) 2.31 10*3/uL 1.88-7.09 (test code = 4836089504) IMM GRAN x10^3 (test <0.03 0-0.06 code = 6629470498) LYMPH x10^3 (test code 1.63 10*3/uL 1.32-3.29 = 731-0) MONO x10^3 (test code 0.45 10*3/uL 0.33-0.92 = 742-7) EOS x10^3 (test code = 0.10 10*3/uL 0.03-0.39 711-2) BASO x10^3 (test code 0.03 10*3/uL 0.01-0.07 = 704-7) Lab Interpretation Abnormal (test code = 11016-8) [facility] WITH [id number] 10:12:00 Test Item Value Reference Range Interpretation [...] RDW-SD (test code = 45.2 fL 39-49.9 35492-2) RDW-CV (test code = 12.9 % 12-15.5 788-0) PLT (test code = See_Comment H [Automated 777-3) message] The sy stem which generated this result transmitted reference range : 166 - 358 10*3/ ?L. The reference r madelin was not used to interpret this result as normal/abnormal . MPV (test code = 9.8 fL 9.5-12.9 39993-7) NRBC/100 WBC (test See_Comment [Automat ed code = 5631622791) message] The system which generated this result transmitted reference range : 0.0 - 10.0 /100 WBCs. The refer ence range was not u sed to interpret th is result as normal/abnormal . NRBC x10^3 (test code <0.01 See_Comment [Auto mated = 0017036737) message] The s ystem which generated this result transmitted reference range : 10*3/?L. The reference range was not used to interpret this result as normal/abnormal . GRAN MAT (NEUT) % 64.8 % (test code = 770-8) IMM GRAN % (test code 2.10 % = 0328682554) LYMPH % (test code = 21.9 % 736-9) MONO % (test code = 9.0 % 5905-5) EOS % (test code = 1.9 % 713-8) BASO % (test code = 0.3 % 706-2) GRAN MAT x10^3(ANC) 8.61 10*3/uL 1.88-7.09 H (test code = 6229931283) IMM GRAN x10^3 (test 0.28 10*3/uL 0-0.06 H code = 8364326162) LYMPH x10^3 (test code 2.91 10*3/uL 1.32-3.29 = 731-0) MONO x10^3 (test code 1.20 10*3/uL 0.33-0.92 H = 742-7) EOS x10^3 (test code = 0.25 10*3/uL 0.03-0.39 711-2) BASO x10^3 (test code 0.04 10*3/uL 0.01-0.07 = 704-7) REACT LYMPHS (test Rare code = 9968942754) Lab Interpretation Abnormal (test code = 44727-3) [facility] (NA, K, CL, CO2, GLUCOSE, BUN, CREATININE, CA)2020-08-01 09:46:00 Test Item Value Reference Range Interpretation Comments NA (test code = 137 mmol/L 135-145 5977960268) K (test code = 4.0 mmol/L 3.5-5 5028562006) CL (test code = 100 mmol/L 98-108 6838137272) CO2 TOTAL (test code = 30 mmol/L 23-31 5243437157) AGAP (test code = 2-16 6340715560) BUN (test code = 5 mg/dL 7-23 L 8414786211) GLUCOSE (test code = 139 mg/dL 70-110 H 8736221601) CREATININE (test code = 0.73 mg/dL 0.5-1.04 3246869267) CALCIUM (test code = 9.3 mg/dL 8.6-10.6 9262471632) eGFR Calculation mL/min/1.73m2 (Non-) (test code = 0412619529) eGFR Calculation mL/min/1.73m2 () (test code = 1849529744) RAUDEL (test code = RAUDEL) Association of [...] tests). Lab Interpretation Abnormal (test code = 37922-8) [facility] Test Item Value Reference Range Interpretation Comments MAGNESIUM (test code = 7352061096) 1.9 mg/dL 1.7-2.4 Lab Interpretation (test code = Normal 86024-0) [facility]2020-09-17 09:46:00 Test Item Value Reference Range Interpretation Comments PHOSPHORUS (test code = 1397254009) 3.0 mg/dL 2.5-5 Lab Interpretation (test code = Normal 89179-1) [facility] [id number] 10:55:00 Test Item Value Reference Range Interpretation [...] RDW-SD (test code = 45.4 fL 39-49.9 50857-4) RDW-CV (test code = 12.8 % 12-15.5 788-0) PLT (test code = See_Comment H [Automated 777-3) message] The sy stem which generated this result transmitted reference range : 166 - 358 10*3/ ?L. The reference r madelin was not used to interpret this result as normal/abnormal . MPV (test code = 9.7 fL 9.5-12.9 22190-2) NRBC/100 WBC (test See_Comment [Automat ed code = 1345132362) message] The system which generated this result transmitted reference range : 0.0 - 10.0 /100 WBCs. The refer ence range was not u sed to interpret th is result as normal/abnormal . NRBC x10^3 (test code <0.01 See_Comment [Auto mated = 5247683069) message] The s ystem which generated this result transmitted reference range : 10*3/?L. The reference range was not used to interpret this result as normal/abnormal . GRAN MAT (NEUT) % 42.8 % (test code = 770-8) IMM GRAN % (test code 5.50 % = 7222275842) LYMPH % (test code = 36.7 % 736-9) MONO % (test code = 11.8 % 5905-5) EOS % (test code = 2.8 % 713-8) BASO % (test code = 0.4 % 706-2) GRAN MAT x10^3(ANC) 4.35 10*3/uL 1.88-7.09 (test code = 3654136034) IMM GRAN x10^3 (test 0.56 10*3/uL 0-0.06 H code = 2360806882) LYMPH x10^3 (test code 3.74 10*3/uL 1.32-3.29 H = 731-0) MONO x10^3 (test code 1.20 10*3/uL 0.33-0.92 H = 742-7) EOS x10^3 (test code = 0.29 10*3/uL 0.03-0.39 711-2) BASO x10^3 (test code 0.04 10*3/uL 0.01-0.07 = 704-7) REACT LYMPHS (test Rare code = 3567323148) Lab Interpretation Abnormal (test code = 54667-9) [facility] METABOLIC PANEL (NA, K, CL, CO2, GLUCOSE, BUN, CREATININE, CA)2020-07-31 10:50:00 Test Item Value Reference Range Interpretation Comments NA (test code = 135 mmol/L 135-145 6225139220) K (test code = 3.8 mmol/L 3.5-5 3394470108) CL (test code = 101 mmol/L 98-108 5534202675) CO2 TOTAL (test code = 27 mmol/L 23-31 4268342307) AGAP (test code = 2-16 1921970289) BUN (test code = 2 mg/dL 7-23 L 1766425131) GLUCOSE (test code = 132 mg/dL 70-110 H 4564080078) CREATININE (test code = 0.72 mg/dL 0.5-1.04 7724277535) CALCIUM (test code = 8.4 mg/dL 8.6-10.6 L 5526150433) eGFR Calculation mL/min/1.73m2 (Non-) (test code = 9060527997) eGFR Calculation mL/min/1.73m2 () (test code = 8354896340) RAUDEL (test code = RAUDEL) Association of [...] tests). Lab Interpretation Abnormal (test code = 30182-1) [facility]:50[facility]00 Test Item Value Reference Range Interpretation Comments MAGNESIUM (test code = 3404047537) 1.2 mg/dL 1.7-2.4 L Lab Interpretation (test code = Abnormal 88782-2) [facility] 10:50:00 Test Item Value Reference Range Interpretation Comments PHOSPHORUS (test code = 2278398993) 3.8 mg/dL 2.5-5 Lab Interpretation (test code = Normal 74259-8) [facility] [id number] 15:48:00 Test Item Value Reference Range Interpretation Comments Case Report (test code Surgical Pathology ? ? = [id number]) ?Case: [id number] ? Authorizing Provider: ?Darren Chun MD ?Collected: ? 07/25/2020 1708 ?Ordering Location: ? ? [facility] OR ? Received: ?07/26/2020 0914 ? Department ? Pathologist: ? Deniz Joseph MD PHD ?Specimen: ? ?ABDOMEN, ILEOCECECTOMY ? Final Diagnosis (test b4gysZBjEFLkp8gaVYLipBG code = 9385543442) uZzEwMzNcZnRuYmpcdWMxIH ctqkXvEGjjb2EfG2WrDcZlJ FxhbnNpXGRlZmxhbmcxMDMz SGF9ttDsVLIfIAgqHWJnHRf rHy1srWPguBkfAyMhQEKri8 fihiGFiqruaEz2t6goMATqA tJ3wSEmSEkmH8snvdMhyROe FNUsZBn8tS24EQWhyV8deNA aTWsfihTeIcG2KXgdWWQnCk B1KVQdbPEzMAMaT8dtWFVmW IkcDFKbWOlxoEZtMFL2kWcy i3G8sQSztWEeuMtqTbBkTtE xAMQKj1JoUIf5jYjgC6QqSH VlIpV2gHQnGRLxPXquZEAcZ ABtxrL7rH69ZDopizM3dIMx x0Idz88dx133aQ7omDZdXLN 7YEWdTYDeaCQiFNYrEJW6MQ VjbGUbV4bjWHkxRV3mztmdS DS5RApwKWTqzJtcZIbvSVAy UeZgrILlZPTlsElcGRmit30 9COA5PnSjJR5sJ7Hat6G3mZ 9maXRcZGVmdGFiNzIwXGZvc a5oiMHjVHxma3TcCZZ7loL7 zRKdlBJfZHIrPB78Nuxwj8L dStubNIA9WMPqukFcm9Kgo2 laFfLijxFwS2wgF1SbCRWoP GXpOLLeHcUomjOea3Dxi8Xm kTOwwBl8d0ghZMRtJFRtgOs ct0keTEG8BFCbO3L1lLAxr0 bxLUsfWPPcgON4seAxDBCds WTpK4CngN4zVPbqMW1ewyo6 q1mnZdAiLP5hkomoe5slETn yIGHxNMP6XyRlQRNao2Ykzq sjLzPbo8QbtVJcBLinR99lx 047RKOneiFrK1tekWQbnhfk dLHxijlwVUgokkI2VVCkPLE sYWluXGYxXGZzMjBcbGFuZz EwMzNcaGljaFxmMVxkYmNoX RKpJAuhR7ozIpJsEzRwDQdw IJJwQN2xJ49SHRwwFJ0PECN RUY6DEZDTEQLNYAKELEGLTJ TQW2QQHLXRCGFPZ2JECGALY 44SSrjgBBQkBWGwUG9kS2LA TUVOVEFMIFNNQUxMIElOVEV TVElORSAgSVNDSEVNSUMgTk IXKp8SKBSvC6fAZWILGtEPR 00WTpNEWTzKZt9GDfVZUU4R LCBccGFyICAgICAgICBTRUN ZNzCVYpclGJ9gCkbZOf0YHN AdSIDOSBREU14iUW3OUUPPY XcJDQAKJ5CCIH1HX0YGOAEV YZ9XBPjnXGLnLALnZK8oD4A LEUUSVVQDIk8JBiILW71QST DIFL6AKCvKYYvnX1FWNNIXB 1NBTCBBTkQgVFJBTlNNVVJB XIMARG0LBtVGXGiJTQcpABF jHCBrIB4sDo9xCUSPUUFVW7 WrU1GhPPDONYMNZWWRO1xNB 1MgRElTRUFTRVxwYXIgICAg CM9hL6CUE0yAOQzpVAUDK1z OUyBBUkUgVklBQkxFIFxwYX QoKKUyXE6tFb8wFMNMTKrHI W6HHZVRGXZZLDwABHZFHNAl ciAgICAgLSBBUFBFTkRJWCB GLCFONCWMLn4COYSQTeSzuU FyXHBhclxwbGFpblxmMVxmc kNeCQtrhnmbLPLwYLesP0kw BiAqNWQhqRoaPIidy2VxUGB dQNQfQatenxUsSRbgEW90NZ 6xUHM2CXDGLXSlRO3uWA4bJ DIwIFxwbGFpblxmMVxmczIw HKnthxasOYFaBPooY8kaJrB fMQRemCbpRLxwr2McVQEkGJ ZzMjBccGFyfXtccnRmMVxzc 1IcW5RvWcAnQCpyxrNlEYTz HfjrqcmeLFZlBWK5ojQrQCD uFSsdUUFtSBwtHc0rePMtvN bjRwKjKTLod5qjmhHNVSpnU rCuI958CCRfZNaav1qsq9Id YCGlaTUkv2W1FXUDntwuoHo 5j6usZwIpGjM2vWGxRAooF9 gzwxSfzGIkC3LyeFQgeIn4y TwxC34sl6C9ZitpI0auIMWr DDWiV7ZzEU6nHDUwDut5CKJ 9UGP9FHOwDFUfF9CoGT6vFB LqkSIjCSr4z4znnVlfBAHxD KK7t4olBNmersY9KW7lgy9u tPr8a1umrjXsWTTfNXBdgFL TSFJqQ2QadFscZc6bsHl8uL ibFwofORY7Plp6GX0vbj00y ly6tEalZJUqllhyOwR9IIhz CQAitsfnCXu3YYyxPRYmvQI 8RICqhULcI9MqHPLcZV8cyp n0LXW3DMzgLEYuWfJ0FINdi DJcEXVjnTukAZsan587ZUV1 GzVwTB0jH3Ddt7R8gD5jlVO kICDdxMLqExZyNDYydm9vbA YhNJyxt1YgOQT0nuZ6tRDzz EZdHCZiTG09Yweoj7MiCzjc ZTW2JTYoheVgb2Dai4ooEyP gmhQiV5seA7JxYLBePKVvHV MwPwJkcgZdx0Ikp4TaoSSom Xb2y9fuYIKvBLVtgWczi6nd SQP9LVKaW9Y7yETyg7slTZm eWMIbhZK7jyL3EZIlkLCrC1 LbvY6qXOLeUK2akle3e3xhR SK5PChjTHUvNwE7qvB2VDYk zJNjZYJgxBxgUSvab326XER 2VeAsFTBed9XbR1LkvRnyB0 7nfTavE88fERLidUifpI2hs KdpeJ7lYoPoOoCbGHgztEei bGFpblxmMVxmczIwXGxhbmc eXOHmKEfaD6wjEpLzLPMkpH qoLCsfu7StRJUwAHQjCtvho zIwXHBhciBJIGhhdmUgcGVy b96nIKxgiXQhYWJdFGwcQAQ apKxjh7VzO2deLG6aH0TzlZ RvuoOlrvRpVWbrMDPxl2w4v IGfjAhqc2CteQCxQU74egTl UFCqGNS0XHZit8qsPZ68afk nSpEtpD18rtYiglXuDGTxa0 zqU7jgtHGks7Ckf5KwzdRuM Rvjy7SxZA1sbNHwhchesZR0 FHVrkONgkeSrewQ9nUjdRZO ztU4awA0plSxdwN9uLnRbHx ZtSYvoNO9hFNQkT7cyoWOxA QQbPRIeT7wnUhOeiA7fmRgs FphnxqA6PFIxlp38 Clinical Information Crohn's 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 code = colon with complication [id number]) [K50.119]SBO (small bowel obstruction) [K56.609] Gross Description o1sdkWPcTUIlfCGsVhSrVIL (test code = [id number] [id number]) NcZnRuYmpcdWMxXGRlZmYwe 1aci203lCRwj7ifCJPjXpI9 hPSeTTIlcVUpP866SNOsVDs qi2ztm1PhHXRoqUEyp3U1WX FWfoquxBs3xXflD27qs0I4J ffsO6djQKOgHJPfS5FdRM0t NLBpPmz2MVW8ZRN7NMXvXUE xO3JfIV5nUFTakRGbMOn2c8 nlxYytOSHzQVC4c6ncRYdwd xHaVV1sud1odIj4g8fixbWn CVRtQWPavRXLIICpZ1QcyIl iWn4esDl9tCvhQyrlZFG1Sg k5FY0kdz44ysm9oQfgUKSvd jclPnG1VZtbKOHdtmwcPAo1 DHdtIMGhzVRqMLPasTZjD6U cWEjwJQ8frtw5MnTqAD4vvg gaDXgqDGBsMGE4LpCfOIJkp 0DtzkmgDnPamu0jwa87CAB4 p6DnrUvaRPJ5DGJ1AdQpOy9 ewPNuASSxMC8wRiLksDJvBA Vgnb56lCklJWfymxIjrO3mT tLwRKIvzHCjXNWpCU0ysHEd KBUmrP3dvznuFPMyTiEnxgv mQWKtrOgythEbQj4dtRlyAN D5DNvdI8fkaW1dQjC0NCfzA 5geaE8lWDe6NEqoqDX1BGKl gI2eXJ1nuknvl1flALE6ANr eZJIcemW4bdDaWPAamBHuJ6 DgqF58FmEecIHjU5SwiN2lY QytCRPxvxj0ZgYfJa3qgIPw hQP9XDguRrbvFVdrXQMtxpP vbnRccGduZGVjXHBsYWluXH BsYWluXGYwXGZzMjRccWxcc XnueP5pGkKyQuAhUHxwSK7o GSLrR5lyvCMmAEJkKXQyT6j aBkWvdD0kbEqfYLyjsaMyQE NwZWNpbWVuIEEgaXMgcmVjZ Ix5FBVtsF8sAc6dxCLgzO4g kMEpNHjlBTS6qJCdEGLiNIN sAFEhWJ66K8TokqNzAEwzOA xaldYcNrOrXNKiMJWdm98rd yftwDyzz9SnR8LknU2weEEm UJ7zIAVnlyLki0PuAF6mSPD gu15goMvfBq91LPotj5QlkO VudCAoNjYuOCBjbSBpbiBsZ D2kfAjszQGszXLtMVVrfyJd CQ5nlD1vWOKsz40pVx30YU1 pWs3xBRCkHUM2kTIuWQS9bU MgvOTxIGMuxHPxPPr6BTw2S sbzJ85pnG7qxBMsL5PlBGjr PV41LTRhGXjuABJwKL7xoNN yKSBhbmQgcHJveGltYWwgY2 KfaI5dSTJzOIQvAWCdm1Snj RViqNVqSS8izI3tnZCpnHXj RIUlZFNeYUU5ijBizmE4HRB cJRGmAJSpRU3pimJxZGpmUh AssiQjA0Tkj6AjlAWhfUprw TAwRGSbub54U8rtiUIcxNPg naWoZV0tlGzck5f2aCX5qPH jfUWkRPAaBBOdnR0eWRHod6 hutEFmTSKdDTHcvYA3SPgqq OYdJ9zypc7jKAcpEADjBTTi rCSwFAvcMY1yYI0rDTMcloH wDZ5mv1WstZFtyDNuoXi6IT DmNUFkrlIxkLHzFT3gacYnH ZpxWlHurU3onyFiUHObpdDf bnRzIHdpdGggYSBkYXJrLWJ ea2uaZBSjSHB9OK7gKWRoiZ Uhv0LxCIC3XDHgU0Sfz5Pih LE4rZnkd66nm0QqRP6zFFBn OT0xOGkvixWnERHxRT74uIU xiSxwKOWno6XbbNQceASxSR YwzCuid1jjJR0nBARwHUBhB DAuMSBjbSBpbiBncmVhdGVz gEFztX9zqlEjn64uXRspS9O 9UEIvZJNfvYgiEZCoa0PktA YlmUU9qU1cNn0dbXVkGg0gJ VNij39bQSJxJSSdmf3of8v8 GOrsJQ64uWIsRCBbYGagTVB ccGFyIFRoZSBhcHBlbmRpeC CuBXDmLG8rTAT1UOZpTSTpw EWgyA11UELhk7euCFKuV0fx HDWmDEIvBVCnAC0noNdeACU dDDU3STPxDrKwfEqpZN4lBX DbhKQlKVOnsuqqk21iq6YtX MGmbb7rJOP6sHMxSFHeTDVz TU8jPO21uQUrXy8kVTezF06 fS5KlhZturp2aEWbvHHTttX ZdVQp5SFpcPBFhbipbhTf7N ECgJ4Hcd87cSGF8uhXdRDVu TRzlqJGtYIfnzG2nOZ5aeOP oC6T6RIF7tbIaE1HnTShuvY ikDCPpxJ7zhbOmsFWtkJ1jx CBkaWFtZXRlciAwLjIgLSAw VjUxC24nTHXlwWlqKGJ6kOR kVRSdq7jyZVWlM2ZfFF3heK VyaWFsLiBXYWxsIHRoaWNrb jEssnCrTF4sSMEsYoYvvQHq YcFrXSUuZjZaO57aUNHgcIL pm2XlnNI1yHMmKIArZ0Ydr7 5yIEQbJBRbwCXqnVX4PZEyx O4sEYCkEAYjSmgfFEQycRYr CCUdZ6Awb20nG49aPEngbTO gLSSyDOPoZnQupy53xZ6qwO AovTB8iSDuYAXsiT5nNNByP WEtY7XzcBSwXOXlOiXipDB2 FPrnN2PrZSuwnXTyG3mzHEK yCWQaRMKtkwNkgIf1STmkMU QrCZD2HMqtYY1sITKubRW9F Fa2UDfwznVbztJpPR82JITx smDfuHFeDEA0MqHoRMSxRDS ndtKagFk3SFBoJTN1fI7uug OiEyO7NZvrCWZzQZxwQ0k3T MLpg6Lyr1hzYRVna4g2eDEg oDNzDYS5PTO3IpQwYTWpGBY uluWtoUi4ERIgAEJ9fA5rov NyQlM9VSwvZFKqeAFklHZ3N YZsm7JlbFUztNjjjCt4OYSy o96qzHHegLrcQQpnrM0bJIz xvXGbDVTlgrBMGLK1QKUtP0 Iie27pMQ9rTTUmwQBcFAj3D TUoTCsuO8w9LGTaXGIxQJ2r tFKrBInis9XrGjrbDTMgjD0 vHSCqHnp5BYeyGXWbzZGvt2 JldRS8fQWnHOZwg9QmPBRbB 1Kwb14iESVqMKCjsxUnjrZa LdrqENF5KNHygQkgEBNjtpv aKYSxPw8jWL8lSYPvoHSpQU HDUAU7xQQrpnEuBUTjyyVAA VUkBZ99yybbdfLPNOSdYFH7 aH2il8pxu0NcSjEFe4Uyk2I hbnQpXHBhcn0= Embedded Images (test code = 4936062481) [facility] METABOLIC PANEL (NA, K, CL, CO2, GLUCOSE, BUN, CREATININE, CA)2020-07-30 11:29:00 Test Item Value Reference Range Interpretation Comments NA (test code = 136 mmol/L 135-145 3446474584) K (test code = 3.8 mmol/L 3.5-5 Slight 5907257423) hemolysis CL (test code = 102 mmol/L 98-108 9004016867) CO2 TOTAL (test code 25 mmol/L 23-31 = 6871256827) AGAP (test code = 2-16 9415223476) BUN (test code = 2 mg/dL 7-23 L Slight 2653693533) hemolysis GLUCOSE (test code = 182 mg/dL 70-110 H 7342970754) CREATININE (test code 0.68 mg/dL 0.5-1.04 = 1901085203) CALCIUM (test code = 9.0 mg/dL 8.6-10.6 1662999631) eGFR Calculation mL/min/1.73m2 (Non-) (test code = 8029588220) eGFR Calculation mL/min/1.73m2 () (test code = 3848612350) RAUDEL (test code = RAUDEL) Association of [...] tests). Lab Interpretation Abnormal (test code = 91046-0) [facility] Test Item Value Reference Range Interpretation Comments MAGNESIUM (test code = 5822204069) 1.4 mg/dL 1.7-2.4 L Lab Interpretation (test code = Abnormal 28816-4) [facility] 11:29:00 Test Item Value Reference Range Interpretation Comments PHOSPHORUS (test code = 3314594593) 3.6 mg/dL 2.5-5 Lab Interpretation (test code = Normal 03696-0) [facility] [id number] 14:01:19EXAM: XR KUB 07/29/2020 4:42 AM. INDICATION: [...] agree with minor modifications (no call needed twin ervin). I, Shahriar Lozano MD., have reviewed this study and agree with theabove report.[facility],Radiant Results Inft User - 07/29/2020 [...] reviewed this study and agree with theabove report.[facility] (NA, K, CL, CO2, GLUCOSE, BUN, CREATININE, CA)2020-07-29 12:26:00 Test Item Value Reference Range Interpretation Comments NA (test code = 137 mmol/L 135-145 4249475625) K (test code = 3.4 mmol/L 3.5-5 L 4258386108) CL (test code = 102 mmol/L 98-108 3530449408) CO2 TOTAL (test code = 31 mmol/L 23-31 6463161673) AGAP (test code = 2-16 2441481434) BUN (test code = 3 mg/dL 7-23 L 9822621616) GLUCOSE (test code = 118 mg/dL 70-110 H 8833682881) CREATININE (test code = 0.81 mg/dL 0.5-1.04 5737225595) CALCIUM (test code = 9.4 mg/dL 8.6-10.6 9650172726) eGFR Calculation mL/min/1.73m2 (Non-) (test code = 1291678078) eGFR Calculation mL/min/1.73m2 () (test code = 2290442060) RAUDEL (test code = RAUDEL) Association of [...] tests). Lab Interpretation Abnormal (test code = 91257-3) [facility]IB[facility]EN2020-09-14 11:05:00 Test Item Value Reference Range Interpretation Comments Fibrinogen (test code = 1089 mg/dL 167-453 H 0137645864) Lab Interpretation (test code = Abnormal 29115-8) [facility]aPTT2020-09-14 10:58:00 Test Item Value Reference Range Interpretation Comments APTT Patient (test code = See_Comment [ Automated message] 3173-2) The system [employer] generated this result transmitted ref erence range: 26 - 36 Seconds. The re ference range was not u sed to interpret this result as normal/abnor mal. Lab Interpretation (test Normal code = 34981-0) [facility] HospitalPROTHROMBIN TIME / [id number] 10:58:00 Test Item Value Reference Range Interpretation Comments PROTIME PATIENT (test See_Comment [Auto mated message] code = 5964-2) The system [employer] generated this result transmitted ref erence range: 10.1 - 1 2.6 Seconds. The re ference range was not u sed to interpret this result as normal/abnor mal. INR (test code = 6301-6) Nor mal INR <1.1; Warfarin Therap eutic range 2.0 to 3. 0 or 2.5 to 3.5, dep ending upon the indica tions. Lab Interpretation (test Normal code = 44805-5) [facility] HospitalCBC WITHOUT [id number] 10:54:00 Test Item Value Reference Range Interpretation Comments WBC (test code = 6690-2) See_Comment [A utomated message] The system [employer] generated this result transmit carl reference range : 4.30 - 11.10 10*3/?L. The reference range was not used to interpret this result as normal/abnormal . RBC (test code = 789-8) See_Comment L [Au tomated message] The system [employer] generated this result transmit carl reference range [...] 777-3) See_Comment [Au tomated message] The system [employer] generated this result transmit carl reference range : 166 - 358 10*3/?L. The reference range was not used to interpret this result as normal/abnormal . MPV (test code = 10.0 fL 9.5-12.9 55721-8) RDW-CV (test code = 12.0 % 12-15.5 788-0) RDW-SD (test code = 43.2 fL 39-49.9 10185-6) NRBC x10^3 (test code = <0.01 See_Comment [Au tomated message] 4363733355) The system [employer] generated this result transmit carl reference range : 10*3/?L. The reference range was not used to interpret this result as normal/abnormal . NRBC/100 WBC (test code See_Comment [Au tomated message] = 1480837644) The system [facility] generated this result transmit carl reference range : 0.0 - 10.0 /100 WBC s. The reference r madelin was not used to interpret this result as normal/abnormal . IPF % (test code = 0585491214) Lab Interpretation (test Abnormal code = 94643-7) [facility] HospitalBLOOD CULTURE [id number] 22:01:00 Test Item Value Reference Range Interpretation Comments Blood Culture-Aerobic No organisms No growth Previo us (test code = 29814-7) isolated prelim inary verified result was Culture [...] Culture-Anaerobic isolated preliminar y (test code = 76577-3) verifi ed result was Culture In Progress [...] CDT Lab Interpretation Normal (test code = 10191-5) [facility]BL[facility] [id number] 22:01:00 Test Item Value Reference Range Interpretation Comments Blood Culture-Aerobic No organisms No growth Previo us (test code = 39575-7) isolated prelim inary verified result was Culture [...] Culture-Anaerobic isolated preliminar y (test code = 24659-6) verifi ed result was Culture In Progress [...] CDT Lab Interpretation Normal (test code = 08476-9) [facility]ABOLIC PAN[facility] (NA, K, CL, CO2, GLUCOSE, BUN, CREATININE, CA)2020-07-28 12:34:00 Test Item Value Reference Range Interpretation Comments NA (test code = 135 mmol/L 135-145 6797822051) K (test code = 3.6 mmol/L 3.5-5 4125892977) CL (test code = 105 mmol/L 98-108 6051865836) CO2 TOTAL (test code = 24 mmol/L 23-31 1911869397) AGAP (test code = 2-16 6622003634) BUN (test code = 3 mg/dL 7-23 L 9300796234) GLUCOSE (test code = 132 mg/dL 70-110 H 8436529547) CREATININE (test code = 0.68 mg/dL 0.5-1.04 7532459413) CALCIUM (test code = 8.6 mg/dL 8.6-10.6 3529666396) eGFR Calculation mL/min/1.73m2 (Non-) (test code = 2997739707) eGFR Calculation mL/min/1.73m2 () (test code = 4356634237) RAUDEL (test code = RAUDEL) Association of [...] tests). Lab Interpretation Abnormal (test code = 65579-6) [facility] WITHOUT [id number] 10:46:00 Test Item Value Reference Range Interpretation Comments WBC (test code = 6690-2) See_Comment [A utomated message] The system [employer] generated this result transmit carl reference range : 4.30 - 11.10 10*3/?L. The reference range was not used to interpret this result as normal/abnormal . RBC (test code = 789-8) See_Comment L [Au tomated message] The system [employer] generated this result transmit carl reference range [...] 777-3) See_Comment [Au tomated message] The system [employer] generated this result transmit carl reference range : 166 - 358 10*3/?L. The reference range was not used to interpret this result as normal/abnormal . MPV (test code = 10.0 fL 9.5-12.9 59194-1) RDW-CV (test code = 12.0 % 12-15.5 788-0) RDW-SD (test code = 42.5 fL 39-49.9 00015-4) NRBC x10^3 (test code = <0.01 See_Comment [Au tomated message] 1830866166) The system [employer] generated this result transmit carl reference range : 10*3/?L. The reference range was not used to interpret this result as normal/abnormal . NRBC/100 WBC (test code See_Comment [Au tomated message] = 9786007249) The system [employer] generated this result transmit carl reference range : 0.0 - 10.0 /100 WBC s. The reference r madelin was not used to interpret this result as normal/abnormal . IPF % (test code = 2540241231) Lab Interpretation (test Abnormal code = 99272-2) [facility] METABOLIC PANEL (NA, K, CL, CO2, GLUCOSE, BUN, CREATININE, CA)2020-07-27 11:40:00 Test Item Value Reference Range Interpretation Comments NA (test code = 134 mmol/L 135-145 L 0100314906) K (test code = 3.7 mmol/L 3.5-5 7240212602) CL (test code = 104 mmol/L 98-108 9390364029) CO2 TOTAL (test code = 29 mmol/L 23-31 3851065223) AGAP (test code = 2-16 L 8405449881) BUN (test code = 7 mg/dL 7-23 9671747318) GLUCOSE (test code = 169 mg/dL 70-110 H 0924576220) CREATININE (test code = 0.63 mg/dL 0.5-1.04 0044807806) CALCIUM (test code = 8.3 mg/dL 8.6-10.6 L 9907094727) eGFR Calculation mL/min/1.73m2 (Non-) (test code = 8796656108) eGFR Calculation mL/min/1.73m2 () (test code = 6443038680) RAUDEL (test code = RAUDEL) Association of [...] tests). Lab Interpretation Abnormal (test code = 67147-7) [facility] WITHOUT [id number] 11:18:00 Test Item Value Reference Range Interpretation Comments WBC (test code = 6690-2) See_Comment H [A utomated message] The system [employer] generated this result transmit carl reference range : 4.30 - 11.10 10*3/?L. The reference range was not used to interpret this result as normal/abnormal . RBC (test code = 789-8) See_Comment L [Au tomated message] The system [employer] generated this result transmit carl reference range [...] 777-3) See_Comment [Au tomated message] The system [employer] generated this result transmit carl reference range : 166 - 358 10*3/?L. The reference range was not used to interpret this result as normal/abnormal . MPV (test code = 10.8 fL 9.5-12.9 84697-8) RDW-CV (test code = 11.9 % 12-15.5 L 788-0) RDW-SD (test code = 43.5 fL 39-49.9 17069-4) NRBC x10^3 (test code = <0.01 See_Comment [Au tomated message] 2510556758) The system [employer] generated this result transmit carl reference range : 10*3/?L. The reference range was not used to interpret this result as normal/abnormal . NRBC/100 WBC (test code See_Comment [Au tomated message] = 2571092209) The system [employer] generated this result transmit carl reference range : 0.0 - 10.0 /100 WBC s. The reference r madelin was not used to interpret this result as normal/abnormal . IPF % (test code = 4803436396) Lab Interpretation (test Abnormal code = 47002-9) [facility] METABOLIC PANEL (NA, K, CL, CO2, GLUCOSE, BUN, CREATININE, CA)2020-07-26 09:39:00 Test Item Value Reference Range Interpretation Comments NA (test code = 136 mmol/L 135-145 8613248285) K (test code = 3.9 mmol/L 3.5-5 6348520942) CL (test code = 104 mmol/L 98-108 0881594807) CO2 TOTAL (test code = 28 mmol/L 23-31 3970762654) AGAP (test code = 2-16 2187272787) BUN (test code = 11 mg/dL 7-23 5341307154) GLUCOSE (test code = 136 mg/dL 70-110 H 1985847092) CREATININE (test code = 0.84 mg/dL 0.5-1.04 5499738080) CALCIUM (test code = 8.2 mg/dL 8.6-10.6 L 9258143929) eGFR Calculation mL/min/1.73m2 (Non-) (test code = 1654522621) eGFR Calculation mL/min/1.73m2 () (test code = 3880266304) RAUDEL (test code = RAUDEL) Association of [...] tests). Lab Interpretation Abnormal (test code = 09448-4) [facility] WITHOUT [id number] 08:44:00 Test Item Value Reference Range Interpretation Comments WBC (test code = 6690-2) See_Comment [A utomated message] The system [employer] generated this result transmit carl reference range : 4.30 - 11.10 10*3/?L. The reference range was not used to interpret this result as normal/abnormal . RBC (test code = 789-8) See_Comment L [Au tomated message] The system [employer] generated this result transmit carl reference range [...] See_Comment L [Au tomated message] The system [employer] generated this result transmit carl reference range : 166 - 358 10*3/?L. The reference range was not used to interpret this result as normal/abnormal . MPV (test code = 11.0 fL 9.5-12.9 64338-1) RDW-CV (test code = 11.8 % 12-15.5 L 788-0) RDW-SD (test code = 42.4 fL 39-49.9 34038-2) NRBC x10^3 (test code = <0.01 See_Comment [Au tomated message] 7240655054) The system [employer] generated this result transmit carl reference range : 10*3/?L. The reference range was not used to interpret this result as normal/abnormal . NRBC/100 WBC (test code See_Comment [Au tomated message] = 1480949424) The system [facility] generated this result transmit carl reference range : 0.0 - 10.0 /100 WBC s. The reference r madelin was not used to interpret this result as normal/abnormal . IPF % (test code = 0381404246) Lab Interpretation (test Abnormal code = 40672-9) [facility] METABOLIC PANEL (NA, K, CL, CO2, GLUCOSE, BUN, CREATININE, CA)2020-07-26 00:48:00 Test Item Value Reference Range Interpretation Comments NA (test code = 137 mmol/L 135-145 9994891938) K (test code = 4.5 mmol/L 3.5-5 7753428717) CL (test code = 102 mmol/L 98-108 6472863266) CO2 TOTAL (test code = 28 mmol/L 23-31 4955135780) AGAP (test code = 2-16 4062349037) BUN (test code = 13 mg/dL 7-23 1689364059) GLUCOSE (test code = 165 mg/dL 70-110 H 6455491877) CREATININE (test code = 0.92 mg/dL 0.5-1.04 5562357668) CALCIUM (test code = 8.5 mg/dL 8.6-10.6 L 5517736656) eGFR Calculation mL/min/1.73m2 (Non-) (test code = 0083672789) eGFR Calculation mL/min/1.73m2 () (test code = 6236889172) RAUDEL (test code = RAUDEL) Association of [...] tests). Lab Interpretation Abnormal (test code = 20644-4) [facility]2020-09-11 00:48:00 Test Item Value Reference Range Interpretation Comments MAGNESIUM (test code = 8395473121) 1.5 mg/dL 1.7-2.4 L Lab Interpretation (test code = Abnormal 50876-4) [facility] HospitalPROTHROMBIN TIME / [id number] 00:29:00 Test Item Value Reference Range Interpretation Comments PROTIME PATIENT (test See_Comment H [Auto mated message] code = 5964-2) The system [employer] generated this result transmitted ref erence range: 10.1 - 1 2.6 Seconds. The reference range was not used to int erpret this result as normal/abnormal . INR (test code = 6301-6) Nor mal INR <1.1; Warfarin Therap eutic range 2.0 to 3. 0 or 2.5 to 3.5, dep ending upon the indica tions. Lab Interpretation (test Abnormal code = 91055-6) [facility]2020-09-11 00:29:00 Test Item Value Reference Range Interpretation Comments APTT Patient (test code = See_Comment [ Automated message] 3173-2) The system [employer] generated this result transmitted ref erence range: 26 - 36 Seconds. The re ference range was not u sed to interpret this result as normal/abnor mal. Lab Interpretation (test Normal code = 15531-4) [facility] [id number] 00:24:00 Test Item Value Reference Range Interpretation Comments WBC (test code = 6690-2) See_Comment H [A utomated message] The system [employer] generated this result transmit carl reference range : 4.30 - 11.10 10*3/?L. The reference range was not used to interpret this result as normal/abnormal . RBC (test code = 789-8) See_Comment L [Au tomated message] The system [employer] generated this result transmit carl reference range [...] 777-3) See_Comment [Au tomated message] The system [employer] generated this result transmit carl reference range : 166 - 358 10*3/?L. The reference range was not used to interpret this result as normal/abnormal . MPV (test code = 10.8 fL 9.5-12.9 88229-4) RDW-CV (test code = 12.0 % 12-15.5 788-0) RDW-SD (test code = 44.0 fL 39-49.9 07397-3) NRBC x10^3 (test code = <0.01 See_Comment [Au tomated message] 0747054936) The system [employer] generated this result transmit carl reference range : 10*3/?L. The reference range was not used to interpret this result as normal/abnormal . NRBC/100 WBC (test code See_Comment [Au tomated message] = 4612986238) The system [employer] generated this result transmit carl reference range : 0.0 - 10.0 /100 WBC s. The reference r madelin was not used to interpret this result as normal/abnormal . IPF % (test code = 7984037325) Lab Interpretation (test Abnormal code = 86869-3) [facility] METABOLIC PANEL (NA, K, CL, CO2, GLUCOSE, BUN, CREATININE, CA)2020-07-25 12:05:00 Test Item Value Reference Range Interpretation Comments NA (test code = 137 mmol/L 135-145 6752588022) K (test code = 4.0 mmol/L 3.5-5 4297076100) CL (test code = 104 mmol/L 98-108 8213967187) CO2 TOTAL (test code = 28 mmol/L 23-31 4420638530) AGAP (test code = 2-16 1689792621) BUN (test code = 13 mg/dL 7-23 5590215934) GLUCOSE (test code = 207 mg/dL 70-110 H 9502290318) CREATININE (test code = 0.79 mg/dL 0.5-1.04 9814579936) CALCIUM (test code = 8.5 mg/dL 8.6-10.6 L 6629007973) eGFR Calculation mL/min/1.73m2 (Non-) (test code = 5666564080) eGFR Calculation mL/min/1.73m2 () (test code = 4067762795) RAUDEL (test code = RAUDEL) Association of [...] tests). Lab Interpretation Abnormal (test code = 14776-8) [facility] WITHOUT [id number] 12:02:00 Test Item Value Reference Range Interpretation Comments WBC (test code = 6690-2) See_Comment H [A utomated message] The system [employer] generated this result transmit carl reference range : 4.30 - 11.10 10*3/?L. The reference range was not used to interpret this result as normal/abnormal . RBC (test code = 789-8) See_Comment L [Au tomated message] The system [employer] generated this result transmit carl reference range [...] 777-3) See_Comment [Au tomated message] The system [employer] generated this result transmit carl reference range : 166 - 358 10*3/?L. The reference range was not used to interpret this result as normal/abnormal . MPV (test code = 10.9 fL 9.5-12.9 96767-2) RDW-CV (test code = 12.1 % 12-15.5 788-0) RDW-SD (test code = 43.3 fL 39-49.9 26745-3) NRBC x10^3 (test code = <0.01 See_Comment [Au tomated message] 2051231940) The system [facility] [employer] generated this result transmit carl reference range : 10*3/?L. The reference range was not used to interpret this result as normal/abnormal . NRBC/100 WBC (test code See_Comment [Au tomated message] = 7079035778) The system [facility] generated this result transmit carl reference range : 0.0 - 10.0 /100 WBC s. The reference r madelin was not used to interpret this result as normal/abnormal . IPF % (test code = 9990789382) Lab Interpretation (test Abnormal code = 08885-7) [facility]ABOR[facility] [id number] 08:01:35 Test Item Value Reference Range Interpretation Comments ABO & RH (test code A Positive Performe d at [facility] = 20) Laboratory [facility]3 [address] [facility] [address] Free: [phone] A No. [id number] [facility] HospitalType and Screen - ONCE [id number] 05:04:45 Test Item Value Reference Range Interpretation Comments ABO & RH (test code A POSITIVE Performe d at [facility] = 20) Laboratory Serv [facility] [address] [facility] s [address] Free: [phone] A No. [id number] IAT (test code = Negative Performed a t [facility] 1185) Laboratory [facility] s [address]Sshg Free: [phone] A No. [id number] [facility]EN 1 [id number] 13:39:15EXAM: XR ABDOMEN 1 VW 07/24/2020 1:46 [...] reviewed this study and agree with theabove report.[facility], Radiant Results Inft User - [...] reviewed this study and agree with theabove report.[facility] METABOLIC PANEL (NA, K, CL, CO2, GLUCOSE, BUN, CREATININE, CA)2020-07-24 08:29:00 Test Item Value Reference Range Interpretation Comments NA (test code = 137 mmol/L 135-145 3251381729) K (test code = 4.1 mmol/L 3.5-5 Slight 0399602186) hemolysis CL (test code = 102 mmol/L 98-108 1234339432) CO2 TOTAL (test code 24 mmol/L 23-31 = 0846364365) AGAP (test code = 2-16 4971731645) BUN (test code = 19 mg/dL 7-23 Slight 2754947071) hemolysis GLUCOSE (test code = 170 mg/dL 70-110 H 6621181369) CREATININE (test code 0.93 mg/dL 0.5-1.04 = 5939066595) CALCIUM (test code = 8.9 mg/dL 8.6-10.6 8449141588) eGFR Calculation mL/min/1.73m2 (Non-) (test code = 5169840594) eGFR Calculation mL/min/1.73m2 () (test code = 9558036299) RAUDEL (test code = RAUEDL) Association of Glomerular Filtration Rate (GFR) and [...] tests). Lab Interpretation Abnormal (test code = 93163-2) [facility] WITHOUT [id number] 08:27:00 Test Item Value Reference Range Interpretation Comments WBC (test code = See_Comment H [Automated message] 6690-2) The system [employer] generated this result transmitted ref erence range: 4.30 - 1 1.10 10*3/?L. The reference range was not used to int erpret this result as normal/abnormal . RBC (test code = 789-8) See_Comment [Au tomated message] The system [employer] generated this result transmitted ref erence range: [...] 777-3) See_Comment [Au tomated message] The system [employer] generated this result transmitted ref erence range: 166 - 35 8 10*3/?L. The reference range was not used to int erpret this result as normal/abnormal . MPV (test code = 11.0 fL 9.5-12.9 58404-5) RDW-CV (test code = 12.0 % 12-15.5 788-0) RDW-SD (test code = 41.5 fL 39-49.9 52536-2) NRBC x10^3 (test code = <0.01 See_Comment [Au tomated message] [id number]) The system [employer] [employer] generated this result transmitted ref erence range: 10*3/?L. The reference range was not used to int erpret this result as normal/abnormal . NRBC/100 WBC (test code See_Comment [Au tomated message] = 7485118814) The system [employer] generated this result transmitted ref erence range: 0.0 - 10 .0 /100 WBCs. The reference range was not used to int erpret this result as normal/abnormal . IPF % (test code = 5.7 % 1.3-7.7 Platelet count 7983205891) measured by fluorescence me thod. Lab Interpretation Abnormal (test code = 55466-1) [facility] NOW RAPID TESTING)2020-07-24 01:08:00 Test Item Value Reference Range Interpretation Comments SARS-CoV-2 Rapid ID NOW Not Detected Not Detected (test code = 99807-9) RAUDEL (test code = RAUDEL) ID NOW COVID-19 Assay is an isothermal nucleic acid amplification test intended for the qualitative detection of nucleic acid from SARS-CoV-2 viral RNA in nasopharyngeal (BRAID CUTTER) specimens. It is used under Emergency Use [...] indicated. Lab Interpretation Normal (test code = 94055-5) [facility] Whole [id number] 00:34:00 Test Item Value Reference Range Interpretation Comments LACTIC ACID (test code = 3.03 mmol/L 4114546978) [facility] Whole [id number] 21:59:00 Test Item Value Reference Range Interpretation Comments LACTIC ACID (test code = 2.30 mmol/L 2828653843) [facility] PEL[facility] W [id number] 21:22:06CT Abdomen and Pelvis with intravenous contrast. [...] however, findings are not suggestive ofacute appendicitis.[facility] (NA, K, CL, CO2, GLUCOSE, BUN, CREATININE, CA)2020-07-23 20:11:00 Test Item Value Reference Range Interpretation Comments NA (test code = 137 mmol/L 135-145 9394240354) K (test code = 3.3 mmol/L 3.5-5 L 0155901864) CL (test code = 97 mmol/L 98-108 L 2435440506) CO2 TOTAL (test code = 25 mmol/L 23-31 9675585289) AGAP (test code = 2-16 3280692176) BUN (test code = 18 mg/dL 7-23 5190418980) GLUCOSE (test code = 236 mg/dL 70-110 H 1873875561) CREATININE (test code = 0.94 mg/dL 0.5-1.04 1474901974) CALCIUM (test code = 10.4 mg/dL 8.6-10.6 9307686711) eGFR Calculation mL/min/1.73m2 (Non-) (test code = 2067553288) eGFR Calculation mL/min/1.73m2 () (test code = 2429872198) RAUDEL (test code = RAUDEL) Association of [...] tests). Lab Interpretation Abnormal (test code = 81879-3) [facility] (ALB, T.PRO, BILI T, BU/BC, ALT, AST, ALK PHOS)2020-07-23 20:11:00 Test Item Value Reference Range Interpretation Comments TOTAL BILI (test code = 8849283969) 1.0 mg/dL 0.1-1.1 BILI UNCON (test code = 3650699263) 1.0 mg/dL 0.1-1.1 BILI CONJ (test code = 4410925580) 0.0 mg/dL 0-0.3 T PROTEIN (test code = 4101655330) 8.9 g/dL 6.3-8.2 H ALBUMIN (test code = 8809223046) 4.7 g/dL 3.5-5 ALK PHOS (test code = 4997288329) 77 U/L 34-122 ALTv (test code = 1742-6) 19 U/L 5-35 AST(SGOT) (test code = 6322095190) 24 U/L 13-40 Lab Interpretation (test code = Abnormal 88159-6) [facility]Lipase [id number] 20:11:00 Test Item Value Reference Range Interpretation Comments LIPASE (test code = 5958409367) 26 U/L 0-220 Lab Interpretation (test code = Normal 42053-2) [facility]CBC with [id number] 19:48:00 Test Item Value Reference Range Interpretation Comments WBC (test code = See_Comment H [Automated 4190-2) message] The system which generated this result [...] RDW-SD (test code = 39.7 fL 39-49.9 68618-5) RDW-CV (test code = 11.5 % 12-15.5 L 788-0) PLT (test code = See_Comment [Automated 777-3) message] The system which generated this result transmit carl reference range : 166 - 358 10*3/ ?L. The reference range was not u sed to interpret th is result as normal/abnormal . MPV (test code = 10.4 fL 9.5-12.9 95825-2) NRBC/100 WBC (test See_Comment [Automat ed code = 2023775532) message] The system which generated this result transmit carl reference range : 0.0 - 10.0 /100 WBCs. The reference range was not used to interpret this result as normal/abnormal . NRBC x10^3 (test code <0.01 See_Comment [Auto mated = 2506167356) message] The system which generated this result transmit carl reference range : 10*3/?L. The reference range was not used to interpret this result as normal/abnormal . GRAN MAT (NEUT) % 90.3 % (test code = 770-8) IMM GRAN % (test code 0.50 % = 9171842087) LYMPH % (test code = 5.4 % 736-9) MONO % (test code = 3.7 % 5905-5) EOS % (test code = 0.0 % 713-8) BASO % (test code = 0.1 % 706-2) GRAN MAT x10^3(ANC) 12.67 10*3/uL 1.88-7.09 H (test code = 1314643939) IMM GRAN x10^3 (test 0.07 10*3/uL 0-0.06 H code = 6206905471) LYMPH x10^3 (test code 0.76 10*3/uL 1.32-3.29 L = 731-0) MONO x10^3 (test code 0.52 10*3/uL 0.33-0.92 = 742-7) EOS x10^3 (test code = <0.03 0.03-0.39 L 711-2) BASO x10^3 (test code <0.03 0.01-0.07 = 704-7) Lab Interpretation Abnormal (test code = 78344-1) [facility] HospitalUrinalysis2020-09-08 19:37:00 Test Item Value Reference Range Interpretation Comments APPEARANCE (test code = Hazy Clear A 4039140286) COLOR (test code = Kathleen Yellow A 7234770327) PH (test code = 4.8-8.0 8101186856) SP GRAVITY (test code = 1.003-1.030 H 4285414575) GLU U QUAL (test code = 50 mg/dL Normal A 0826281663) BLOOD (test code = Negative Negative 5033886357) KETONES (test code = 80 mg/dL Negative A 1272440714) PROTEIN (test code = 100 mg/dL Negative A 2887-8) UROBILIN (test code = Normal Normal 0202548807) BILIRUBIN (test code = Negative Negative 8362967002) NITRITE (test code = Negative Negative 2375222587) LEUK CHELY (test code = Negative Negative 6490431725) RBC/HPF (test code = See_Comment [Autom ated message] 2684262325) The system [employer] generated this result transmit carl reference range : 0 - 3 HPF. The refe rence range was not u sed to interpret th is result as normal/abnormal . WBC/HPF (test code = See_Comment [Autom ated message] 8037074339) The system [employer] generated this result transmit carl reference range : 0 - 5 HPF. The refe rence range was not u sed to interpret th is result as normal/abnormal . BACTERIA (test code = Few Negative A 6412540570) MUCOUS (test code = Marked Negative LPF A 2759634434) SQ EPITH (test code = HPF 6063320144) Lab Interpretation (test Abnormal code = 19575-8) [facility]CT [facility] PELVIS W [id number] 18:53:08CT Abdomen and Pelvis with intravenous contrast. [...] Unremarkable.CONCLUSION: No acute intra-abdominal or intrapelvic pathology detected.[facility] Metabolic Panel (NA, K, CL, CO2, GLUCOSE, BUN, CREATININE, CA)2019-06-15 18:17:00 Test Item Value Reference Range Interpretation Comments NA (test code = 140 mmol/L 135-145 5381821509) K (test code = 3.5 mmol/L 3.5-5 2775317456) CL (test code = 105 mmol/L 98-108 5116645204) CO2 TOTAL (test code = 25 mmol/L 23-31 2829412775) AGAP (test code = 2-16 1062632058) BUN (test code = 10 mg/dL 7-23 0960016618) GLUCOSE (test code = 162 mg/dL 70-110 H 4694288419) CREATININE (test code = 0.81 mg/dL 0.5-1.04 4170449522) CALCIUM (test code = 8.7 mg/dL 8.6-10.6 9216209990) eGFR Calculation mL/min/1.73m2 (Non-) (test code = 3574915865) eGFR Calculation mL/min/1.73m2 () (test code = 8508338663) RAUDEL (test code = RAUDEL) Association of [...] tests). Lab Interpretation Abnormal (test code = 57003-4) [facility] (ALB, T.PRO, BILI T, BU/BC, ALT, AST, ALK PHOS)2019-06-15 18:17:00 Test Item Value Reference Range Interpretation Comments TOTAL BILI (test code = 6514775322) 0.7 mg/dL 0.1-1.1 BILI UNCON (test code = 8242605345) 0.6 mg/dL 0.1-1.1 BILI CONJ (test code = 8639703336) 0.0 mg/dL 0-0.3 T PROTEIN (test code = 2636265251) 7.7 g/dL 6.3-8.2 ALBUMIN (test code = 3919365875) 4.2 g/dL 3.5-5 ALK PHOS (test code = 4641519417) 59 U/L 34-122 ALT(SGPT) (test code = 8878714775) 16 U/L 9-51 AST(SGOT) (test code = 0005681994) 20 U/L 13-40 Lab Interpretation (test code = Normal 28870-3) [facility] HospitalLipase [id number] 18:17:00 Test Item Value Reference Range Interpretation Comments LIPASE (test code = 0025502580) 48 U/L 0-220 Lab Interpretation (test code = Normal 17220-5) [facility] HospitalUrinalysis2019-08-01 18:06:00 Test Item Value Reference Range Interpretation Comments APPEARANCE (test code Slightly Hazy Clear A = 4754796369) COLOR (test code = Yellow Yellow 3662128525) PH (test code = 4.8-8.0 7782911641) SP GRAVITY (test code >=1.030 1.003-1.030 = 2297780203) GLU U QUAL (test code Negative Negative = 0475459255) BLOOD (test code = Negative Negative 2676337600) KETONES (test code = Negative Negative 0327706133) PROTEIN (test code = Negative Negative 2887-8) UROBILIN (test code = 0.2 mg/dL See_Comment [Auto mated 9261984522) message] The system which generated this result transmit carl reference range : 0-1.0 mg/dL. Th e reference range was not used to interpret this result as normal/abnormal . BILIRUBIN (test code = Negative Negative 9376394900) NITRITE (test code = Negative Negative 4519673935) LEUK CEHLY (test code Negative Negative = 8899489713) RBC/HPF (test code = See_Comment [Autom ated 4723178306) message] The system which generated this result transmit carl reference range : 0 - 3 HPF. The reference range was not used to interpret this result as normal/abnormal . WBC/HPF (test code = See_Comment [Autom ated 8234038580) message] The system which generated this result transmit carl reference range : 0 - 5 HPF. The reference range was not used to interpret this result as normal/abnormal . BACTERIA (test code = Moderate Negative A 1371597961) MUCOUS (test code = Moderate Negative LPF A 3980731869) SQ EPITH (test code = HPF 3883265378) CA OXALATE (test code See_Comment H [Auto mated = 9584415032) message] The system which generated this result transmit carl reference range : <=1 HPF. The reference range was not used to interpret this result as normal/abnormal . Lab Interpretation Abnormal (test code = 22303-8) [facility] Whole [id number] 17:57:00 Test Item Value Reference Range Interpretation Comments LACTIC ACID (test code = 1.94 mmol/L 0.5-2.2 5053973304) Lab Interpretation (test code = Normal 41652-2) [facility] WITH [id number] 17:56:00 Test Item Value Reference Range Interpretation [...] RDW-SD (test code = 41.2 fL 39-49.9 29606-4) RDW-CV (test code = 11.7 % 12-15.5 L 788-0) PLT (test code = See_Comment [Automated 777-3) message] The sy stem which generated this result transmitted reference range : 166 - 358 10*3/ ?L. The reference r madelin was not used to interpret this result as normal/abnormal . MPV (test code = 10.0 fL 9.5-12.9 12776-4) NRBC/100 WBC (test See_Comment [Automat ed code = 4658593272) message] The system which generated this result transmitted reference range : 0.0 - 10.0 /100 WBCs. The refer ence range was not u sed to interpret th is result as normal/abnormal . NRBC x10^3 (test code <0.01 See_Comment [Auto mated = 7727260024) message] The s ystem which generated this result transmitted reference range : 10*3/?L. The reference range was not used to interpret this result as normal/abnormal . GRAN MAT (NEUT) % 72.9 % (test code = 770-8) IMM GRAN % (test code 0.10 % = 1182657730) LYMPH % (test code = 21.6 % 736-9) MONO % (test code = 4.3 % 5905-5) EOS % (test code = 0.7 % 713-8) BASO % (test code = 0.4 % 706-2) GRAN MAT x10^3(ANC) 4.88 10*3/uL 1.88-7.09 (test code = 8225923109) IMM GRAN x10^3 (test <0.03 0-0.06 code = 3659995357) LYMPH x10^3 (test code 1.45 10*3/uL 1.32-3.29 = 731-0) MONO x10^3 (test code 0.29 10*3/uL 0.33-0.92 L = 742-7) EOS x10^3 (test code = 0.05 10*3/uL 0.03-0.39 711-2) BASO x10^3 (test code 0.03 10*3/uL 0.01-0.07 = 704-7) Lab Interpretation Abnormal (test code = 14952-3) [facility] Test, [id number] 17:24:00 Test Item Value Reference Range Interpretation Comments POCT PREG (test code = 1605) negative On board controls acceptable with present C Line (test code = 3574) POCT PREG LOT # (test code = 3575) [id number] POCT PREG TEST DATE (test 11/14/20 code = 3576) Lab Interpretation (test code = Normal 30391-3) [facility]"
[2023-09-05] MEDS ORDERED: PROMETHAZINE INJ 25 MG/ML AMP ONE ×2 (07:18→12:53)
[2023-09-05] MEDS ORDERED: NA CHLORIDE 0.9% 1,000 ML ONE (07:18)
[2023-09-05] MEDS ORDERED: FAMOTIDINE 20 MG/2 ML VIAL IV ONE (07:18)
[2023-09-05] MEDS ORDERED: KETAMINE HCL IN 0.9 % NACL 50 MG/5 ML SYRINGE IV ONE (07:20)
[2023-09-05 07:32] LABS: Absolute Lymphocytes (CBC) 2.5 K/uL (0.7-4.9); Hematocrit 37.1 % (36.0-45.0); Lymphocytes % 46.1 % (15.3-44.8); MCV 94.6 fL (80-100); Platelets 239 thou/uL (152-406); RBC Red Blood Cell Count 3.92 M/uL (3.86-4.86)
[2023-09-05] MEDS ORDERED: HYDROMORPHONE HCL 1 MG/ML INJ ONE ×3 (07:44→15:37)
[2023-09-05] MEDS ORDERED: DIPHENHYDRAMINE 50 MG/ML VIAL ONE ×2 (07:45→20:26)
[2023-09-05 07:49] LABS: Albumin 3.3 g/dL (3.4-5.0); Bilirubin Total 0.3 mg/dL (0.2-1.0); Potassium 4.5 mEq/L (3.5-5.1); Protein, Total 7.6 g/dL (6.4-8.2)
--- NOTE | 2023-09-05 07:52 | RAD REPORT ---
EXAM DESCRIPTION: CTAbdomen Pelvis Wo Contrast - 09/05/2023 7:43 am CLINICAL HISTORY: ABD PAIN COMPARISON: Abdomen Pelvis W Contrast dated 03/09/2023; Abdomen Pelvis Wo Contrast dated ; Abdomen Pelvis Wo Contrast dated 07/12/2022; Abdomen Pelvis W Contrast dated 03/10/2022 TECHNIQUE: CT of the abdomen and pelvis was performed. All CT scans are performed using dose optimization technique as appropriate and may include automated exposure control or mA/KV adjustment according to patient size. FINDINGS: Lower chest: No acute abnormality. Liver: No acute abnormality or suspicious lesions. Biliary: No biliary ductal dilatation. Stomach: No significant focal abnormality. Duodenum: No significant focal abnormality. Pancreas: No significant abnormality. Spleen: No significant abnormality. Adrenal: No suspicious lesions. Kidney/ureter: No hydronephrosis. No renal calculi. Retroperitoneum: No retroperitoneal adenopathy. Vascular: No aneurysm. Bowel: Wall thickening of the transverse, descending, and proximal sigmoid colon.. Peritoneum: No ascites or free air. Bladder: Grossly unremarkable. Reproductive: No adnexal masses. Bones: No acute fracture. Other: n/a IMPRESSION: Colonic wall thickening involving the transverse colon to the sigmoid concerning for col itis.
[2023-09-05 08:08] LABS: Blood Morphology Comment NOT SEEN (NOT SEEN); Platelet Estimate ADEQ; White Blood Cell Scan OK (OK)
--- NOTE | 2023-09-05 08:19 | EDPHYS ---
Physician Documentation [facility] Name: Jessica Stearns Age: 47 yrs Sex: Female : 1975 Arrival Date: 09/05/2023 Time: 06:33 Bed 15 Private MD: ED Physician Gerry Torres HPI: 09/05 07:02 This 47 yrs old Black Female presents to ER via Wheelchair with complaints of ms3 Nausea/Vomiting, Abdominal Pain, FALL INJURY EARLIER IN THE WEEK. PT STATES SHE IS HAVING CHEST/BACK PAIN WHEN INHALING.. 07:02 47-year-old female with past medical history of Crohn's disease presents to the [facility] emergency department for abdominal pain that is been ongoing for 2 days. Patient states pain is a 10/10 located throughout her abdomen. Patient states pain is worse with breathing and. Patient denies alleviating factors. Patient endorses nausea, vomiting, diarrhea. Patient denies black or bloody stools. 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 Flu vaccine is not up to date. - Social history:: Smoking status: Patient denies any tobacco usage or history of. Patient uses alcohol, occasionally. Patient/guardian denies using street drugs. ROS: 07:02 Constitutional: Negative for fever, and chills. Neck: Negative for injury, pain, and ms3 swelling, Cardiovascular: Negative for chest pain, and palpitations. Respiratory: Negative for shortness of breath, cough, wheezing, and pleuritic chest pain, 07:02 MS/Extremity: Negative for injury and deformity, Skin: Negative for injury, rash, and discoloration, 07:02 Abdomen/GI: Positive for abdominal pain, nausea, vomiting, and diarrhea, 07:02 All other systems are negative, Exam: 07:02 Constitutional: This is a well developed, well nourished patient who is awake, alert, ms3 and in no acute distress. Head/Face: Normocephalic, atraumatic. Neck: Trachea midline, no cervical lymphadenopathy. Supple, full range of motion without nuchal rigidity, or vertebral point tenderness. No Meningismus. Chest/axilla: Normal chest wall appearance and motion. Nontender with no deformity. Cardiovascular: Regular rate and rhythm with a normal S1 and S2. No gallops, murmurs, or rubs. Normal PMI, no JVD. No pulse deficits. Respiratory: Lungs have equal breath sounds bilaterally, clear to auscultation and percussion. No rales, rhonchi or wheezes noted. No increased work of breathing, no retractions or nasal flaring. 07:02 Skin: Warm, dry with normal turgor. Normal color with no rashes, no lesions, and no evidence of cellulitis. 07:02 Abdomen/GI: Inspection: abdomen appears normal, Bowel sounds: normal, Palpation: moderate abdominal tenderness, in all quadrants, Vital Signs: 06:51 BP 146 / 74; Pulse 115; Resp 20 S; Temp 98(O); Pulse Ox 100% on R/A; Weight 65.77 kg 8 (R); Height 5 ft. 7 in. (R); Pain 10/10; 07:37 BP 133 / 78; Pulse 112; Resp 18; Pulse Ox 100% on R/A; ll1 08:22 BP 140 / 85; Pulse 100; Resp 18; Pulse Ox 100% ; ll1 09:30 BP 132 / 79; Pulse 105; Resp 18; Pulse Ox 100% on R/A; eh3 10:30 BP 132 / 74; Pulse 108; Resp 18; Pulse Ox 100% on R/A; eh3 06:51 Body Mass Index 22.71 (65.77 kg, 170.18 cm) [facility] 06:51 Pain Scale: Adult [facility] MDM: 07:00 Patient medically screened. ms3 07:02 Differential diagnosis: Nonspecific abd pain, Crohn's flare versus bowel obstruction. ms3 07:08 Transition of care: After a detail discussion of the patient's case, care is ms3 transferred to Gerry Torres MD. 08:16 Differential diagnosis: gastritis, pancreatitis, diverticulitis, viral gastroenteritis, rn gastroenteritis, Colitis. Data reviewed: vital signs, nurses notes, lab test result(s), radiologic studies, CT scan, and as a result, I will admit patient. Consideration of Admission/Observation Patient was admitted/placed on observation. Escalation of care including admission/observation considered. Management of patient was discussed with the following: Hospitalist: Dr. Chavez, will admit. I considered the following discharge prescriptions or medication management in the emergency department Medications were administered in the Emergency Department. See MAR. Independent interpretation of the following test(s) in the Emergency Department CT Scan: My interpretation is CT abdomen images negative for perforation or free fluid per my interpretation. Care significantly affected by the following chronic conditions: Crohn's disease. Counseling: I had a detailed discussion with the patient and/or guardian regarding the historical points, exam findings, and any diagnostic results supporting the discharge/admit diagnosis, lab results, radiology results, the need for further work-up and treatment in the hospital. Response to treatment: the patient's symptoms have mildly improved after treatment. 08:16 ED course: Patient states this feels different from her regular Crohn's flare. rn Patient's pain not well controlled, still tachycardic, shows colitis, will cover with antibiotics and admit to the hospitalist.. 09/05 06:44 Order name: CBC with Diff; Complete Time: 08:15 ms3 09/05 06:44 Order name: CMP; Complete Time: 07:52 ms3 09/05 06:44 Order name: Lipase; Complete Time: 07:52 ms3 09/05 08:08 Order name: CBC Smear Scan; Complete Time: 08:15 EDMS 09/05 10:43 Order name: Urinalysis w/ reflexes EDMS 09/05 10:43 Order name: Basic Metabolic Panel EDMS 09/05 10:43 Order name: Basic Metabolic Panel EDMS 09/05 10:43 Order name: Basic Metabolic Panel EDMS 09/05 10:43 Order name: CBC with Automated Diff EDMS 09/05 10:43 Order name: CBC with Automated Diff EDMS 09/05 10:43 Order name: CBC with Automated Diff EDMS 09/05 10:43 Order name: Magnesium EDMS 09/05 10:43 Order name: Magnesium EDMS 09/05 10:43 Order name: Magnesium EDMS 09/05 10:43 Order name: Phosphorus EDMS 09/05 10:43 Order name: Phosphorus EDMS 09/05 10:43 Order name: Phosphorus EDMS 09/05 15:58 Order name: Urinalysis w/ reflexes eh3 09/05 16:43 Order name: Urinalysis w/ reflexes EDMS 09/05 07:11 Order name: CT Abd/Pelvis - Without Contrast; Complete Time: 07:53 rn 09/05 10:43 Order name: CONS Physician Consult EDMS 09/05 06:44 Order name: IV Saline Lock; Complete Time: 07:24 ms3 09/05 06:44 Order name: Labs collected and sent; Complete Time: 07:24 ms3 Administered Medications: 07:12 CANCELLED (Duplicate Order): ketamine0.2 mg/kg IVP once; Mix in 50 mL NS IV over 10 rn minutes. Maximum Dose 10 mg 07:23 Drug: NS 0.9% IV 1000 ml IV at 1 bolus Per protocol; 1000 mL bolus Route: IV; Rate: 1 hb bolus; Site: Other; 09:04 Follow up: Response: No adverse reaction; IV Status: Completed infusion; IV Intake: ll1 1000ml 07:24 Drug: Promethazine IM 25 mg IM once Route: IM; Site: Other; hb 09:04 Follow up: Response: No adverse reaction; Nausea is decreased ll1 07:24 Drug: Famotidine IVP 10 mg IVP once; dilute with 10 mL 0.9% NaCl; give over 2 minutes hb Route: IVP; Site: Other; 09:04 Follow up: Response: No adverse reaction ll1 07:29 CANCELLED (Duplicate Order): [id number] mg IM once rn 07:36 Drug: HYDROmorphone IM 1 mg IM once Route: IM; Site: Other; ll1 09:05 Follow up: Response: No adverse reaction; Pain is decreased; RASS: Alert and Calm (0) ll1 09:45 Drug: HYDROmorphone IVP 1 mg IVP once Route: IVP; Site: Other; eh3 11:15 Follow up: Response: No adverse reaction; Pain is decreased; RASS: Alert and Calm (0) eh3 09:49 Drug: metroNIDAZOLE IVPB 500 mg 100 ml IVPB at 200 ml/hr once over 30 mins Volume: 100 eh3 ml; Route: IVPB; Rate: 200 ml/hr; Infused Over: 30 mins; Site: Other; 10:19 Follow up: Response: No adverse reaction; IV Status: Completed infusion; IV Intake: eh3 100ml 09:50 Drug: Ciprofloxacin IVPB 400 mg 200 ml IVPB once over 60 mins Volume: 200 ml; Route: eh3 IVPB; Infused Over: 60 mins; Site: Other; 10:50 Follow up: Response: No adverse reaction; IV Status: Completed infusion; IV Intake: eh3 200ml Disposition Summary: 09/05/23 08:18 Hospitalization Ordered Notes: Hospitalization Status: Inpatient Admission rn Provider: Ryan Chavez rn Location: Telemetry/MedSurg (Inpatient) rn Condition: Stable rn Problem: new rn Symptoms: have improved rn Bed/Room Type: Standard rn Room Assignment: [facility](09/05/23 20:27) Diagnosis - Infectious gastroenteritis and colitis, unspecified rn - Vomiting rn - Dehydration rn Forms: - Medication Reconciliation Form rn - SBAR form rn - Leadership Thank You Letter rn Signatures: Dispatcher [employer] EDMS Vidya Joshua RN RN Gerry Terrell MD MD rn Baxter, Heather, RN RN Carlitos Kruger, RN RN ll1 Christ Gentile, DO ms3 Rena Naranjo, RN RN 3 Anamika Bearden, RN RN km8 Corrections: (The following items were deleted from the chart) 07:12 06:56 Ketamine IVP 0.2 mg/kg IVP once; Mix in 50 mL NS IV over 10 minutes. Maximum Dose rn 10 mg ordered. ms3 07:18 06:48 Abdomen Pelvis W Con+CT.RAD.BRZ ordered. EDMS EDMS 07:29 07:12 Ketamine IM 20 mg IM once ordered. rn rn 20:27 08:18 rn richi
--- NOTE | 2023-09-05 08:19 | ER ---
Nurse's Notes [facility] Name: Jessica Stearns Age: 47 yrs Sex: Female : 1975 Arrival Date: 09/05/2023 Time: 06:33 Bed 15 Private MD: Diagnosis: Infectious gastroenteritis and colitis, unspecified;Vomiting;Dehydration Presentation: 09/05 06:51 Chief complaint: Patient states: generalized ABD pain with right sided back pain and km8 n/v/d for 3 days; hx of Cron's and IBS. Coronavirus screen: At this time, the client does not indicate any symptoms associated with coronavirus-19. Ebola Screen: No symptoms or risks identified at this time. Initial Sepsis Screen: Does the patient meet any 2 criteria? HR > 90 bpm. No. Patient's initial sepsis screen is negative. Does the patient have a suspected source of infection? No. Patient's initial sepsis screen is negative. Risk Assessment: Do you want to hurt yourself or someone else? Patient reports no desire to harm self or others. Onset of symptoms was September 02, 2023. 06:51 Method Of Arrival: Wheelchair km8 06:51 Acuity: EVELIA 3 km8 Triage Assessment: 06:54 General: Appears uncomfortable, Behavior is cooperative, anxious, restless. Pain: km8 Complains of pain in right mid back and abdomen Pain currently is 10 out of 10 on a pain scale. Is continuous. EENT: No deficits noted. No signs and/or symptoms were reported regarding the EENT system. Neuro: No deficits noted. Wu Agitation-Sedation Scale (RASS): 0 - Alert and Calm Level of Consciousness is awake, alert, obeys commands, Oriented to person, place, time, situation. Cardiovascular: No deficits noted. Denies chest pain, Capillary refill < 3 seconds Patient's skin is warm and dry. Respiratory: No deficits noted. Airway is patent Respiratory effort is even, unlabored, Respiratory pattern is regular. GI: Abdomen is non-distended, Reports lower abdominal pain, upper abdominal pain, diarrhea, nausea, vomiting. : No deficits noted. No signs and/or symptoms were reported regarding the genitourinary system. Derm: No deficits noted. No signs and/or symptoms reported regarding the dermatologic system. Skin is intact, is healthy with good turgor, Skin is dry, Skin is normal, Skin temperature is warm. Musculoskeletal: No deficits noted. No signs and/or symptoms reported regarding the musculoskeletal system. Circulation, motion, and sensation intact. Range of motion: intact in all extremities. 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 Flu vaccine is not up to date. - Social history:: Smoking status: Patient denies any tobacco usage or history of. Patient uses alcohol, occasionally. Patient/guardian denies using street drugs. Screenin:57 [facility] ED Fall Risk Assessment (Adult) History of falling in the last 3 months, km8 including since admission No falls in past 3 months (0 pts) Confusion or Disorientation No (0 pts) Intoxicated or Sedated No (0 pts) Impaired Gait No (0 pts) Mobility Assist Device Used No (0 pt) Altered Elimination No (0 pt) Score/Fall Risk Level 0 - 2 = Low Risk Oriented to surroundings, Maintained a safe environment, Educated pt \T\ family on fall prevention, incl call for assistance when getting out of bed, Assessed \T\ reinforced patient's understanding of fall precautions. Abuse screen: Denies threats or abuse. Denies injuries from another. Nutritional screening: No deficits noted. Tuberculosis screening: No symptoms or risk factors identified. Assessment: 06:57 General: see triage notes/assessment. km8 07:00 Reassessment: No changes from previously documented assessment. Report received from ll1 production stage manager RN. 07:35 Reassessment: No changes from previously documented assessment. Patient and/or family ll1 updated on plan of care and expected duration. Pain level reassessed. Patient is alert, oriented x 3, equal unlabored respirations, skin warm/dry/pink. 08:03 Reassessment: No changes from previously documented assessment. Patient and/or family hb updated on plan of care and expected duration. Pain level reassessed. Patient is alert, oriented x 3, equal unlabored respirations, skin warm/dry/pink. 08:22 Reassessment: No changes from previously documented assessment. Patient and/or family ll1 updated on plan of care and expected duration. Pain level reassessed. Patient is alert, oriented x 3, equal unlabored respirations, skin warm/dry/pink. 09:00 General: Appears in no apparent distress. uncomfortable, Behavior is calm, cooperative, eh3 appropriate for age. Pain: Complains of pain in back and abdomen Pain currently is 10 out of 10 on a pain scale. Neuro: Wu Agitation-Sedation Scale (RASS): 0 - Alert and Calm Level of Consciousness is awake, alert, obeys commands, Oriented to person, place, time, situation. Cardiovascular: Capillary refill < 3 seconds Patient's skin is warm and dry. Respiratory: Airway is patent Respiratory effort is even, unlabored, Respiratory pattern is regular, symmetrical. GI: Abdomen is round non-distended, Reports lower abdominal pain, upper abdominal pain, nausea. Derm: Skin is pink, warm \T\ dry. Musculoskeletal: Circulation, motion, and sensation intact. Range of motion: intact in all extremities. 10:00 Reassessment: Patient appears in no apparent distress at this time. Patient and/or eh3 family updated on plan of care and expected duration. Pain level reassessed. Patient is alert, oriented x 3, equal unlabored respirations, skin warm/dry/pink. 11:00 Reassessment: Patient appears in no apparent distress at this time. Patient and/or eh3 family updated on plan of care and expected duration. Pain level reassessed. Patient is alert, oriented x 3, equal unlabored respirations, skin warm/dry/pink. Vital Signs: 06:51 BP 146 / 74; Pulse 115; Resp 20 S; Temp 98(O); Pulse Ox 100% on R/A; Weight 65.77 kg km8 (R); Height 5 ft. 7 in. (R); Pain 10/10; 07:37 BP 133 / 78; Pulse 112; Resp 18; Pulse Ox 100% on R/A; ll1 08:22 BP 140 / 85; Pulse 100; Resp 18; Pulse Ox 100% ; ll1 09:30 BP 132 / 79; Pulse 105; Resp 18; Pulse Ox 100% on R/A; eh3 10:30 BP 132 / 74; Pulse 108; Resp 18; Pulse Ox 100% on R/A; eh3 06:51 Body Mass Index 22.71 (65.77 kg, 170.18 cm) km8 06:51 Pain Scale: Adult 8 ED Course: 06:38 Patient arrived in ED. [id number] 06:42 Christ Gentile DO is Attending Physician. ms3 06:51 Anamika Bearden RN is Primary Nurse. km8 06:54 Triage completed. km8 06:54 Arm band placed on right wrist. Emesis basin given. km8 06:57 Patient has correct armband on for positive identification. Placed in gown. Bed in low km8 position. Call light in reach. Side rails up X 1. Client placed on continuous cardiac and pulse oximetry monitoring. NIBP monitoring applied. 06:57 Patient maintains SpO2 saturation greater than 95% on room air. km8 07:07 Report given to ZARA Mcknight. km8 07:10 Inserted saline lock: 24 gauge in right upper arm, using aseptic technique. Blood ll1 collected. 07:11 Attending Physician role handed off by Christ Gentile DO ms3 07:11 Gerry Torres MD is Attending Physician. ms3 07:38 No provider procedures requiring assistance completed. ll1 07:45 CT Abd/Pelvis - Without Contrast In Process Unspecified. EDMS 08:17 Ryan Chavez is Hospitalizing Provider. rn 09:00 Provided Education on: Use of call snowden, fall precautions. eh3 11:17 Patient admitted, IV remains in place. eh3 Administered Medications: 07:12 CANCELLED (Duplicate Order): ketamine0.2 mg/kg IVP once; Mix in 50 mL NS IV over 10 rn minutes. Maximum Dose 10 mg 07:23 Drug: NS 0.9% IV 1000 ml IV at 1 bolus Per protocol; 1000 mL bolus Route: IV; Rate: 1 hb bolus; Site: Other; 09:04 Follow up: Response: No adverse reaction; IV Status: Completed infusion; IV Intake: ll1 1000ml 07:24 Drug: Promethazine IM 25 mg IM once Route: IM; Site: Other; hb 09:04 Follow up: Response: No adverse reaction; Nausea is decreased 1 07:24 Drug: Famotidine IVP 10 mg IVP once; dilute with 10 mL 0.9% NaCl; give over 2 minutes hb Route: IVP; Site: Other; 09:04 Follow up: Response: No adverse reaction 1 07:29 CANCELLED (Duplicate Order): [id number] mg IM once rn 07:36 Drug: HYDROmorphone IM 1 mg IM once Route: IM; Site: Other; ll1 09:05 Follow up: Response: No adverse reaction; Pain is decreased; RASS: Alert and Calm (0) 1 09:45 Drug: HYDROmorphone IVP 1 mg IVP once Route: IVP; Site: Other; eh3 11:15 Follow up: Response: No adverse reaction; Pain is decreased; RASS: Alert and Calm (0) 3 09:49 Drug: metroNIDAZOLE IVPB 500 mg 100 ml IVPB at 200 ml/hr once over 30 mins Volume: 100 eh3 ml; Route: IVPB; Rate: 200 ml/hr; Infused Over: 30 mins; Site: Other; 10:19 Follow up: Response: No adverse reaction; IV Status: Completed infusion; IV Intake: eh3 100ml 09:50 Drug: Ciprofloxacin IVPB 400 mg 200 ml IVPB once over 60 mins Volume: 200 ml; Route: eh3 IVPB; Infused Over: 60 mins; Site: Other; 10:50 Follow up: Response: No adverse reaction; IV Status: Completed infusion; IV Intake: eh3 200ml Medication: 08:22 VIS not applicable for this client. ll1 Intake: 09:04 IV: 1000ml; Total: 1000ml. ll1 10:19 IV: 100ml; Total: 1100ml. eh3 10:50 IV: 200ml; Total: 1300ml. eh3 Outcome: 08:18 Decision to Hospitalize by Provider. rn 11:17 Admitted to ER Hold. Please see [facility] for further documentation. 3 11:17 Condition: stable 11:17 Instructed on the need for admit, 20:38 Admitted to Tele accompanied by tech, via wheelchair, room 223, Report called to lisa Gomez RN 20:38 Condition: stable 21:20 Patient left the ED. ha1 Signatures: Dispatcher [employer] EDMS Gerry Torres MD MD rn Baxter, Heather, RN RN hb Lewis, Lynsay, RN RN 1 Christ Gentile DO DO ms3 Joanna Kathleen jj6 Rena Naranjo RN RN eh3 Lilian Sanchez RN RN 1 Anamika Bearden RN RN km8 Corrections: (The following items were deleted from the chart) 07:37 07:37 BP 133 / 78; Pulse 112bpm; Pulse Ox 100% RA; ll1 ll1
[2023-09-05] MEDS ORDERED: CIPROFLOXACIN 400mg IV 400 MG/200 ML BAG IV ONE (09:41)
[2023-09-05] MEDS ORDERED: METRONIDAZOLE 500mg IVPB 500 MG/100 ML BAG IV ONE ×2 (09:41→19:29)
[2023-09-05] MEDS: predniSONE 20 MG TAB PO SCH (10:46)
[2023-09-05] MEDS ORDERED: NA CHLORIDE 0.9% 1,000 ML IV SCH (11:00)
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
[2023-09-05] MEDS: HYDROCODONE/APAP 7.5/325 MG TAB PO PRN ×2 (12:45→19:15)
[2023-09-05] MEDS: PROMETHAZINE INJ 25 MG/ML AMP IV PRN ×2 (12:48→21:39)
[2023-09-05] MEDS ORDERED: INFLUENZA VACCINE (for 6+ mo) 0.5 ML DOSE IMVAC ONE (13:00)
[2023-09-05] MEDS ORDERED: HYDROCODONE/APAP 7.5/325 MG TAB ONE ×2 (13:16→19:29)
[2023-09-05] MEDS: HYDROMORPHONE HCL 1 MG/ML INJ IV PRN ×2 (15:42→21:39)
[2023-09-05 16:43] LABS: Specific Gravity > 1.030 (1.005-1.030); Urine Bacteria None Seen /HPF (<20); Urine Bilirubin NEGATIVE (Negative); Urine Blood Negative (Negative); Urine Clarity Clear (Clear); Urine Color Light-Yellow (Yellow); Urine Glucose NEGATIVE (Negative); Urine Mucus Slight /HPF (None Seen); Urine Protein TRACE (Negative); Urine RBC <5 /HPF (None Seen); Urine Urobilinogen Normal (Normal); Urine pH 5.5 (5.0-7.0)
[2023-09-05] MEDS: METRONIDAZOLE 500mg IVPB 500 MG/100 ML BAG IV SCH (17:00)
[2023-09-05] MEDS: DIPHENHYDRAMINE 50 MG/ML VIAL IV PRN (20:11)
[2023-09-05] MEDS: CIPROFLOXACIN 400mg IV 400 MG/200 ML BAG IV SCH (21:28)
[2023-09-06] MEDS: HYDROMORPHONE HCL 1 MG/ML INJ IV PRN ×5 (01:59→22:39)
[2023-09-06] MEDS: METRONIDAZOLE 500mg IVPB 500 MG/100 ML BAG IV SCH ×3 (02:02→15:59)
[2023-09-06] MEDS: DIPHENHYDRAMINE 50 MG/ML VIAL IV PRN ×4 (02:02→22:40)
[2023-09-06 03:42] LABS: Magnesium 1.3 mg/dL (1.6-2.4); Phosphorus 3.1 mg/dL (2.5-4.9); Potassium 3.9 mEq/L (3.5-5.1)
[2023-09-06 04:37] LABS: Hematocrit 33.9 % (36.0-45.0); Lymphocytes % 33.2 % (15.3-44.8); MCV 94.7 fL (80-100); MPV 8.4 fL (7.6-11.3); Platelets 211 thou/uL (152-406); RBC Red Blood Cell Count 3.58 M/uL (3.86-4.86)
[2023-09-06] MEDS ORDERED: Magnesium Sulfate 2gm IVPB 2 G/50 ML BAG IV ONE (05:00)
[2023-09-06] MEDS: PROMETHAZINE INJ 25 MG/ML AMP IV PRN ×3 (05:39→19:52)
[2023-09-06] MEDS: predniSONE 20 MG TAB PO SCH (09:00)
--- NOTE | 2023-09-06 09:13 | P.PN ---
Subjective Date of Service: 09/06/23 Primary Care Provider: Dr. Scott Davis Chief Complaint: colitis Subjective: No new changes, No C/O voiced, Tolerating diet, Improving, Doing well History of Present Illness: Jessica Stearns is a 47-year-old female with past medical history Crohn's, gastritis, IBS, and colectomy who presents to the ED in a wheelchair complaining of abdominal pain that radiates to her back, nausea, and vomiting. She fell earlier this week and her back is hurting on inhalation. She is experiencing intractible pain and nausea. She denies black or bloody stools. She states she comes to the ED when she has flare ups like these. Nothing she has tried at home helps control her nausea and pain. Initial vitals BP 146/74, HR 115, respirations 20, temperature 98, pulse ox 100% on room air. Significant labs are unremarkable WBC 5.4, H&H 12.4/37.1, platelets 239, electrolytes stable, BUN over creatinine 14/0.78. CT abd/pelvis show "Wall thickening of the transverse, descending, and proximal sigmoid colon, concerns for colitis". 09/06/2023 Patient is alert and oriented No acute distress Patient is afebrile, vital stable Wanting to advance diet today Review of Systems 10-point ROS is otherwise unremarkable Physical Examination - Vital Signs Temperature: 97.6 F Blood Pressure: 137/77 Pulse: 77 Respirations: 16 Pulse Ox (%): 99 Assessment And Plan - Plan - Physical Exam General: Alert, Oriented x3, Acute distress, Other (unkept) HEENT: Atraumatic, Normocephalic Neck: Supple, 2+ carotid pulse no bruit, JVD not distended Respiratory: Expiratory wheezes, Inspiratory wheezes Cardiovascular: Other (Tachycardia) Capillary refill: <2 Seconds Gastrointestinal: Normal bowel sounds, Soft and benign Musculoskeletal: No clubbing, No swelling Integumentary: Other (sores on head, SUSANA, head shaved, ) Assessment and Plan - Plan Assessment and Plan Acute Colitis in patient with Crohns s/p colectomy Acute crohns flare up -Improving, tolerating diet advance the diet to cardiac diet as tolerated -Cipro, flagyl, steroids, and phenergan -pain control -Consulted Dr. Edwards -labs unremarkable Intractable pain -[place] and dilaudid -supportive care Intractable Nausea -CLD -phenergan DVT ppx: lovenox Full code LOS 2 days Discharge Plan: Home Plan to discharge in: 24 Hours - Code Status/Comfort Care Code Status Assessed: Yes (Full code) Code Status: Full Code Physician Review: Patient Assessed, Agree with Above Assessment and Plan Critical Care: No Time Spent Managing PTS Care (In Minutes): 35 (min)
[2023-09-06] MEDS: ENOXAPARIN 40 MG/0.4 ML SQ SCH (09:52)
[2023-09-06] MEDS: CIPROFLOXACIN 400mg IV 400 MG/200 ML BAG IV SCH ×2 (09:52→19:53)
--- NOTE | 2023-09-06 18:26 | P.DS ---
Admission Date: 09/05/23 Discharge Date: 09/06/23 Primary Care Provider: Dr. Scott Davis Disposition: ROUTINE DISCHARGE Discharge Condition: FAIR Reason for Admission: colitis - Problems (1) Crohn's disease Current Visit: Yes Status: Acute (2) Abdominal pain Current Visit: No Status: Acute (3) Chronic pain Current Visit: No Status: Acute (4) Colitis Onset Date: 05/02/15 Current Visit: No Status: Acute (5) Vomiting Current Visit: No Status: Acute Brief History of Present Illness: Jessica Stearns is a 47-year-old female with past medical history Crohn's, gastritis, IBS, and colectomy who presents to the ED in a wheelchair complaining of abdominal pain that radiates to her back, nausea, and vomiting. She fell earlier week and stated her back was hurting on inhalation. She reported pain and nausea. She denied black or bloody stools. She states she comes to the ED when she has Crohn's flare ups. Initial vitals BP 146/74, HR 115, respirations 20, temperature 98, pulse ox 100% on room air. Significant labs are unremarkable WBC 5.4, H&H 12.4/37.1, platelets 239, electrolytes stable, BUN over creatinine 14/0.78. CT abd/pelvis show "Wall thickening of the transverse, descending, and proximal sigmoid colon, concerns for colitis". Patient was hospitalized for further management. Hospital Course: Patient placed on observation on the medical floor, treated with supportive measures including IV fluid, IV opioids for pain management. Patient started on antibiotics for possible infectious colitis and oral prednisone for Crohn's flare. Patient tolerated liquid diet which was later advanced to solid diet which she tolerated with no vomiting. Patient with high risk for aberrant opioid use, she was getting IV hydromorphone [id number], reviewed her home medications and noted she takes Ativan 10 mg twice a day as needed which is an unusually high dose. No more nausea or vomiting. Patient is discharged with oral antibiotics and oral prednisone and a few days of [place] given abnormal CT indicating colitis. Patient is advised to follow-up with Dr. Edwards for further management of her Crohn's disease. Vital Signs/Physical Exam: Temp Pulse Resp BP Pulse Ox 97.6 F 77 16 137/77 99 09/06/23 09:24 09/06/23 09:24 09/06/23 09:24 09/06/23 09:24 09/06/23 09:24 General: Alert, In no apparent distress HEENT: Mucous membr. moist/pink Neck: JVD not distended Respiratory: Clear to auscultation bilaterally, Normal air movement Cardiovascular: No edema, Regular rate/rhythm, Normal S1 S2 Gastrointestinal: Soft and benign, Non-distended Musculoskeletal: No swelling Integumentary: No rashes, No cyanosis Neurological: Normal strength at 5/5 x4 extr Laboratory Data at Discharge: WBC 6.00 thou/uL (4.3-10.9) 09/06/23 04:09 Hgb 11.3 g/dL (12.0-15.0) L D 09/06/23 04:09 Hct 33.9 % (36.0-45.0) L 09/06/23 04:09 Plt Count 211 thou/uL (152-406) 09/06/23 04:09 Sodium 138 mEq/L (136-145) 09/06/23 02:46 Potassium 3.9 mEq/L (3.5-5.1) D 09/06/23 02:46 BUN 8 mg/dL (7-18) 09/06/23 02:46 Creatinine 0.67 mg/dL (0.55-1.02) 09/06/23 02:46 Glucose 147 mg/dL (74-106) H 09/06/23 02:46 Phosphorus 3.1 mg/dL (2.5-4.9) 09/06/23 02:46 Magnesium 1.3 mg/dL (1.6-2.4) L 09/06/23 02:46 Total Bilirubin 0.3 mg/dL (0.2-1.0) 09/05/23 07:18 AST 19 U/L (15-37) 09/05/23 07:18 ALT 25 U/L (13-56) 09/05/23 07:18 Alkaline Phosphatase 78 U/L (45-117) 09/05/23 07:18 Lipase 35 U/L (13-75) 09/05/23 07:18 Home Medications: Promethazine Tab [Phenergan*] 25 mg PO TID 06/24/14 Pantoprazole [Protonix Tab*] 40 mg PO BID #60 tab 02/16/15 Duloxetine [Cymbalta *] 20 mg PO DAILY 05/01/15 Zolpidem Tartrate [Ambien] 10 mg PO BEDTIME 05/01/15 Ciprofloxacin HCl [Cipro] 500 mg PO BID #10 tab 09/06/23 Hydrocodone 7.5/APAP 325 [[place] 7.5/325 mg*] 1 tab PO Q6H PRN #12 tab 09/06/23 metroNIDAZOLE [Metronidazole] 500 mg PO TID #15 tab 09/06/23 predniSONE [Prednisone*] 20 mg PO DAILY #5 tab 09/06/23 New Medications: Ciprofloxacin HCl [Cipro] 500 mg PO BID #10 tab metroNIDAZOLE [Metronidazole] 500 mg PO TID #15 tab Hydrocodone 7.5/APAP 325 [[place] 7.5/325 mg*] 1 tab PO Q6H PRN #12 tab PRN Reason: Pain Scale 5-7 (Moderate) predniSONE [Prednisone*] 20 mg PO DAILY #5 tab Diet: Regular Followup: Farooq Edwards MD [ASSOCIATE-ACTIVE - CAN ADMIT] - 1-2 Weeks Time spent managing pt's care (in minutes): 28
[2023-09-06] MEDS: HYDROCODONE/APAP 7.5/325 MG TAB PO PRN (19:52)
[2023-09-07] MEDS: METRONIDAZOLE 500mg IVPB 500 MG/100 ML BAG IV SCH ×2 (02:22→07:52)
[2023-09-07] MEDS: HYDROCODONE/APAP 7.5/325 MG TAB PO PRN (02:22)
[2023-09-07] MEDS: PROMETHAZINE INJ 25 MG/ML AMP IV PRN ×2 (02:41→08:20)
[2023-09-07] MEDS: DIPHENHYDRAMINE 50 MG/ML VIAL IV PRN (04:15)
[2023-09-07] MEDS: HYDROMORPHONE HCL 1 MG/ML INJ IV PRN ×2 (04:15→08:21)
[2023-09-07 05:16] LABS: Absolute Lymphocytes (CBC) 2.3 K/uL (0.7-4.9); Hematocrit 33.7 % (36.0-45.0); Lymphocytes % 33.1 % (15.3-44.8); MCV 95.3 fL (80-100); MPV 8.5 fL (7.6-11.3); Platelets 214 thou/uL (152-406); RBC Red Blood Cell Count 3.53 M/uL (3.86-4.86)
[2023-09-07 05:29] LABS: Magnesium 1.8 mg/dL (1.6-2.4); Phosphorus 2.4 mg/dL (2.5-4.9); Potassium 4.3 mEq/L (3.5-5.1)
[2023-09-07] MEDS: ENOXAPARIN 40 MG/0.4 ML SQ SCH (07:46)
[2023-09-07] MEDS: predniSONE 20 MG TAB PO SCH (07:46)
[2023-09-07] MEDS: CIPROFLOXACIN 400mg IV 400 MG/200 ML BAG IV SCH (07:52)
== END 2023-09-07 10:00 | disposition home or self-care (01) ==
LOC: ER 06:33 → ERHOLD 10:36 → 2ND 20:42
PROVIDERS: ADMIT Internal Medicine; ATTEND Hospitalist
DX: K52.9 Noninfective gastroenteritis and colitis, unspecified (principal); K50.90 Crohn's disease, unspecified, without complications; R10.9 Unspecified abdominal pain; G89.29 Other chronic pain; R11.2 Nausea with vomiting, unspecified; E86.0 Dehydration; Z23 Encounter for immunization; Z88.2 Allergy status to sulfonamides; Z88.5 Allergy status to narcotic agent; Z88.8 Allergy status to other drugs, medicaments and biological substances
CPT/HCPCS: 96365; 96361; 85025 ×3; 81001; 80048 ×2; 36415 ×2; 83735 ×2; 84100 ×2; 83690; 80053; 74176; 96375; 96372; 99285; J2550 ×8; J7512 ×3; J3475; J1200 ×7; J1650 ×2; J1170 ×11; J0744 ×4; J7030 ×3; G0378